=== PATIENT | female | born 1940 | race Caucasian/White ===

== ENCOUNTER 2019-01-01 00:38 | Outpatient (CLI) | payer BC, SELFPAY ==
--- NOTE | 2019-01-01 10:40 | MERGE_ITS ---
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 Summary: 1. Left ventricle: The cavity size was normal. Wall thickness was increased in a pattern of mild LVH. There was moderate focal basal hypertrophy of the septum. Systolic function was normal. The estimated ejection fraction was 60-65%. Wall motion was normal; there were no regional wall motion abnormalities. Stroke volume/bsa (LVOT, Doppler): 32ml/m^2. 2. Aortic valve: Transvalvular velocity was increased less than expected, due to low cardiac output. There was severe stenosis. There was mild regurgitation. Mean gradient (S): 26.5mm Hg. Valve area (VTI): 0.8cm^2. Indexed valve area (VTI): 0.4cm^2/m^2. 3. Mitral valve: Severely calcified annulus. Mildly thickened leaflets. 4. Right ventricle: The cavity size was normal. Wall thickness was normal. Systolic function was normal. 5. Pulmonary arteries: Pulmonary systolic pressure was increased, in the range of 35mm Hg to 40mm Hg. Recommendations: The patient should be referred to a cardiolgist for consultation. *PATIENT PRESENTATION* Height: 157.5cm ((62in) ) S/D Pressure: 131 / 70 Weight: 81.6kg ((179.6lb) ) BSA: 1.92m^2 Test start time: 10:45 AM. Test stop time: 11:45 AM. PERFORMING Unknown ORDERING Reshma Baig REFERRING Reshma Baig PERFORMING [facility] FOUNDATION ASSISTANT RT Yanni Piña)(CT), [facility] *PROCEDURE DATA* Procedure information: The patient was identified by two identifiers. This study was interpreted by [facility]. Pertinent images and digital data are archived for permanent storage and are available for subsequent review. Comparison was made to the study of 08/24/2017. Study status: Routine. Transthoracic echocardiography. M-mode, complete 2D, complete spectral Doppler, and color Doppler. A Transthoracic Echocardiogram was performed. Scanning was performed from the parasternal, apical, subcostal, and suprasternal notch acoustic windows. Images were obtained using an [id number] cardiac ultrasound machine. Image quality was adequate. Study completion: The patient tolerated the procedure well. There were no complications. History: PMH: Aortic stenosis. I35.0 *CARDIAC ANATOMY* Left ventricle: The cavity size was normal. Wall thickness was increased in a pattern of mild LVH. There was moderate focal basal hypertrophy of the septum. Systolic function was normal. The estimated ejection fraction was 60-65%. Wall motion was normal; there were no regional wall motion abnormalities. Aortic valve: Trileaflet; severely calcified leaflets. Valve mobility was restricted. Doppler: Transvalvular velocity was increased less than expected, due to low cardiac output. There was severe stenosis. There was mild regurgitation. VTI ratio of LVOT to aortic valve: 0.27. Valve area (VTI): 0.8cm^2. Indexed valve area (VTI): 0.4cm^2/m^2. Peak velocity ratio of LVOT to aortic valve: 0.3. Valve area (Vmax): 0.9cm^2. Indexed valve area (Vmax): 0.5cm^2/m^2. Mean velocity ratio of LVOT to aortic valve: 0.3. Valve area (Vmean): 0.9cm^2. Indexed valve area (Vmean): 0.5cm^2/m^2. Mean gradient (S): 26.5mm Hg. Peak gradient (S): 43.1mm Hg. Aorta: Aortic root: The aortic root was normal in size. Ascending aorta: The ascending aorta was normal in size. Mitral valve: Severely calcified annulus. Mildly thickened leaflets. Mobility was not restricted. Doppler: Transvalvular velocity was within the normal range. There was no evidence for stenosis. There was no significant regurgitation. Valve area by pressure half-time: 3.2cm^2. Indexed valve area by pressure half-time: 1.7cm^2/m^2. Peak gradient (D): 7.6mm Hg. Left atrium: The atrium was normal in size. Right ventricle: The cavity size was normal. Wall thickness was normal. Systolic function was normal. Pulmonic valve: Doppler: Transvalvular velocity was within the normal range. There was no evidence for stenosis. There was no significant regurgitation. Peak gradient (S): 4mm Hg. Tricuspid valve: Structurally normal valve. Doppler: Transvalvular velocity was within the normal range. There was no evidence for stenosis. There was mild regurgitation. Pulmonary artery: Pulmonary systolic pressure was increased, in the range of 35mm Hg to 40mm Hg. Right atrium: The atrium was normal in size. Pericardium: There was no pericardial effusion. Systemic veins: Inferior vena cava: Well visualized. The vessel was patent and normal in size. The respirophasic diameter changes were in the normal range (greater than or equal to 50%). Measurements Left ventricle Value 08/24/2017 Reference LV ID, ED, PLAX 4.4 cm 4.6 3.5 - 6.0 LV ID, ES, PLAX 2.8 cm 2.9 2.1 - 4.0 LV PW thickness, ED, PLAX 1.1 cm 1.1 LV end-diastolic volume, 52 ml 50 1-p A2C LV ejection fraction, 1-p 65 % 62 A2C LV end-diastolic volume, 60 ml 66 1-p A4C LV ejection fraction, 1-p 64 % 66 A4C LV e', lateral 0.049 m/sec LV E/e', lateral 28 LV e', medial 0.049 m/sec LV E/e', medial 28 LV e', average 0.049 m/sec LV E/e', average 28 Ventricular septum Value 08/24/2017 Reference IVS thickness, ED, PLAX 1.1 cm 1.0 LVOT Value 08/24/2017 Reference LVOT ID, A-P 2.0 cm 2.0 LVOT area 3 cm^2 3.1 LVOT peak velocity, S 1 m/sec 1.09 LVOT mean velocity, S 0.74 m/sec LVOT VTI, S 20.5 cm 26.3 LVOT peak gradient, S 4 mm Hg LVOT mean gradient, S 2.4 mm Hg 2.7 Stroke volume (SV), LVOT 62 ml DP Stroke index (SV/bsa), 32 ml/m^2 LVOT DP Aortic valve Value 08/24/2017 Reference Aortic valve peak 3.3 m/sec 3.2 velocity, S Aortic valve mean 2.46 m/sec 0.02 velocity, S Aortic valve VTI, S 75.0 cm Aortic mean gradient, S 26.5 mm Hg 22 Aortic peak gradient, S 43.1 mm Hg 40 VTI ratio, LVOT/AV 0.27 0.37 Aortic valve area, VTI 0.8 cm^2 1.2 Velocity ratio, peak, 0.3 0.34 LVOT/AV Aortic valve area, peak 0.9 cm^2 1 velocity Velocity ratio, mean, 0.3 LVOT/AV Aortic valve area, mean 0.9 cm^2 velocity Aortic valve area/bsa, 0.5 cm^2/m^2 mean velocity Aorta Value 08/24/2017 Reference Aortic root ID, ED 2.8 cm 2.8 Left atrium Value 08/24/2017 Reference LA ID, A-P, ES 4.2 cm LA ID/bsa, A-P 2.2 cm/m^2 <=2.2 LA area, ES, A4C 21.7 cm^2 8.8 - 23.4 LA area, ES, A2C 21 cm^2 21 LA volume/bsa, ES, 1-p A4C 41 ml/m^2 36 LA volume, ES, 2-p 69 ml LA volume/bsa, ES, 2-p 36 ml/m^2 LA/aortic root ratio 1.5 1.41 Mitral valve Value 08/24/2017 Reference Mitral E-wave peak 1.38 m/sec 1.26 velocity Mitral A-wave peak 1.83 m/sec 1.66 velocity Mitral deceleration time (H) 235 ms 341 150 - 230 Mitral pressure half-time 68 ms 99 Mitral peak gradient, D 7.6 mm Hg 6.4 Mitral E/A ratio, peak 0.75 0.76 Mitral valve area, PHT, DP 3.2 cm^2 2.2 Tricuspid valve Value 08/24/2017 Reference Tricuspid regurg peak 3 m/sec 2.8 velocity Tricuspid peak RV-RA 36.5 mm Hg 31.8 gradient Right atrium Value 08/24/2017 Reference RA area, ES, A4C 12.4 cm^2 8.3 - 19.5 Pulmonic valve Value 08/24/2017 Reference Pulmonic peak gradient, S 4 mm Hg Legend: (L) and (H) stephany values outside specified reference range. I have personally reviewed the images and have reviewed and edited the reported findings. Electronically signed by Jay Jay Lamb 01/01/2019 13:05
== END 2019-01-01 00:58 ==
PROVIDERS: PCP Family Medicine; Visit Provider Family Medicine
DX: I35.0 Nonrheumatic aortic (valve) stenosis (principal); I10 Essential (primary) hypertension; I51.7 Cardiomegaly
CPT/HCPCS: 93306

== ENCOUNTER 2019-03-31 10:50 | Emergency (ER) | payer BC, SELFPAY ==
[2019-03-31 10:57] VITALS: BP 162/75; PULSE 99; RESP 18; TEMP 36.6; O2SAT 98
--- NOTE | 2019-03-31 11:05 | ED.GENADUL_ITS ---
Discharge Plan Disposition Patient Disposition: HOME Condition: Good Discharge Details Chief Complaint: Orthopedic Clinical Impression: Fracture of distal end of fibula Primary Care Provider: Reshma Baig ED Provider: Kyrie Tam Home Meds and New Rx's Prescriptions: No Action Lantus U-100 Insulin 100 UNITS/ML solution 56 unit Sub-Q HS RF: 0 Humalog U-100 Insulin 100 UNIT/ML cartridge 15 unit Sub-Q TID RF: 0 vitamin B complex [B Complex-Vitamin B12] 1 EACH tablet 1 ea PO DAILY RF: 0 cholecalciferol (vitamin D3) [Vitamin D3] 1,000 UNIT capsule 1,000 unit PO DAILY RF: 0 Victoza 3-Colten 0.6 MG/0.1 ML pen injector 0.6 mg SQ DAILY RF: 0 losartan 100 MG tablet 100 mg PO HS RF: 0 Discharge Instructions Instructions: Leg Fracture (ED) Additional Instructions: Please try to reduce the amount of weight and pressure that you put on your left foot. Use a walking boot and your walker at all times. Please follow-up with orthopedics. He will be contacted for an appointment time. If you notice any worsening of your symptoms, or any new symptoms such as change in color for your toes, tingling in your toes, worsening pain, vomiting, diarrhea, fever, chills, shortness of breath, chest pain, numbness, weakness, or fainting , please return immediately to the emergency department for reevaluation. Please follow up with your primary care provider as soon as possible for reassessment and reevaluation. As always, it was a pleasure participating in your medical care today. Referrals: Reshma Baig [Primary Care Provider] - Medical Decision Making This is a 78-year-old female with a past medical history of paroxysmal atrial fibrillation, aortic stenosis, diabetes who presents today for evaluation of left ankle pain. She was walking and unfortunately stepped in pothole, inverting her ankle. She has notable swelling on the lateral aspect. This occurred roughly 20 minutes prior to arrival. She is able to ambulate but does have some pain with ambulation. She denies any numbness or tingling. Neurovascular exam is benign. No other evidence of trauma. No pain or tenderness over the knee femur hips or pelvis. Differential is highest for ligamentous sprain versus fracture, strength appears to be intact. We will get an x-ray to rule out fracture. Give NSAIDs and ice here. 12:37 PM X-ray results have returned, and per radiology there is evidence of a fracture of the distal fibula. No other acute fracture per radiology. Ankle mortise is intact. No pain in the near proximal tib-fib. The case was discussed with Dr. Hearn. He did review the x-rays. He feels that the patient can appropriately be placed in a walking boot, with outpatient orthopedic follow-up. We did do a trial of crutches and the patient did not tolerate this. She does have a walker at home. We initially did put a posterior splint on, however with Dr. Hearn's recommendation we will transition to a walking boot. After placement of the posterior splint she demonstrated normal neurovascular exam, no increase in pain, no decrease in sensation. No other abnormalities. We will refer for orthopedic follow-up. I have extensively reviewed the treatment plan and discharge instructions with the patient and their family. I have addressed all patient concerns at this time. The patient and family was made aware of what symptoms to monitor for that would warrant a return to the emergency department. Discussed the plan with the patient and family, they demonstrate verbal understanding and agreement with our assessment and plan at this time. HPI General Date/Time Provider Initiated Documentation: 03/31/19 10:56 . HPI Narrative: This is a very pleasant 78-year-old female with a past medical history of diabetes, aortic stenosis, hypertension, and paroxysmal atrial fibrillation for which she takes no anticoagulation. She presents today for evaluation of left ankle pain. Patient was walking earlier while carrying boxes, and stepped into a pothole, notably inverting her ankle and causing significant pain. This happened roughly 20 minutes prior to arrival. Pain is notably located on the lateral aspect of the ankle. No radiation of the pain to the roach knee femur or hip. No pain in the foot. No acute numbness or tingling. Patient denies hitting her head or any other trauma. She denies any other complication at this time. No other modifying factors. Pain is notably made worse with movement. Improved by nothing. She has not taken any NSAIDs yet. Related Data Home Medications Medication Instructions Recorded Confirmed insulin glargine [Lantus Vial] 56 unit SUB-Q HS 11/28/15 03/31/19 insulin lispro [Humalog] 15 unit SUB-Q TID 11/28/15 03/31/19 cholecalciferol (vitamin D3) 1,000 unit PO DAILY 01/30/18 03/31/19 [Vitamin D] liraglutide [Victoza 3-Colten] 0.6 mg SQ DAILY 01/30/18 03/31/19 losartan 100 mg PO HS 01/30/18 03/31/19 vitamin B complex [B 1 ea PO DAILY 01/30/18 03/31/19 Complex-Vitamin B12] Allergies Allergy/AdvReac Type Severity Reaction Status Date / Time codeine AdvReac Mild Unverified 03/31/19 11:03 diltiazem AdvReac Mild Unverified 03/31/19 11:03 epinephrine AdvReac Mild Unverified 03/31/19 11:03 lisinopril AdvReac Mild cough Unverified 03/31/19 11:03 pollen extracts AdvReac Unverified 03/31/19 11:03 General Stated Complaint: Orthopedic LACEY: 3 Review of Systems Review of Systems All systems reviewed & are unremarkable except as noted in HPI and below PFSH Social History Smoking/Tobacco Use Status: Never Alcohol Intake: never Drug use: Never Substance use type: does not use Do you feel safe at home: Yes Do you feel safe in your relationship?: Yes Exam Narrative Exam Narrative: 1.Const: Well-nourished, Well-developed, appearing stated age 2.Eyes: PERRL, no conjunctival injection, and symmetrical lids. 3.ENT: Atraumatic external nose and ears. Moist MM. Neck: Symmetric, trachea midline, No thyromegaly. 4.CVS: +S1/S2, No murmurs or gallops. Peripheral pulses 2+ and equal in all extremities. Brisk capillary refill in all extremities. 5.RESP: Unlabored respiratory effort. Clear to auscultation bilaterally. No wheezes rales or rhonchi 6.GI: Soft, Nontender/Nondistended, No hepatosplenomegaly. No guarding or rebound. 7.MSK: Normocephalic, Extremities w/o deformity. There is notable swelling on the lateral malleolus for the left ankle. All to moderate tenderness in this location. Pain is made worsened with inversion and eversion. As well as flexion and extension. Normal movement of the toes. Normal sensation, dorsalis pedis posterior tibial pulse +2 bilaterally, brisk capillary refill, no cyanosis or clubbing, Normal movement of all extremities otherwise. 8.Skin: Warm, Dry. No rashes or lesions. 9.Neuro: director volunteer services II-XII grossly intact. Sensation grossly intact, no focal neurologic deficits. 10.Psych: (AAO) x3. Appropriate mood and affect Course Vital Signs Temperature 36.6 C 03/31/19 10:57 Pulse 99 H 03/31/19 10:57 Respiratory Rate 18 03/31/19 10:57 Blood Pressure 162/75 H 03/31/19 10:57 Pulse Oximetry 98 03/31/19 10:57 Temperature 36.6 C 03/31/19 10:57 Temperature Source Skin 03/31/19 10:57 Pulse 99 H 03/31/19 10:57 Respiratory Rate 18 03/31/19 10:57 Respiratory Effort Non-Labored 03/31/19 10:57 Blood Pressure 162/75 H 03/31/19 10:57 Blood Pressure Position Supine 03/31/19 10:57 Pulse Oximetry 98 03/31/19 10:57 Oxygen Delivery Method Room Air 03/31/19 10:57 Oxygen Flow Rate 0 03/31/19 10:57
[2019-03-31] MEDS: Acetaminophen 500 MG TAB 1000 MG PO (11:06)
[2019-03-31] MEDS: Ibuprofen 800 MG TAB PO (11:06)
--- NOTE | 2019-03-31 11:27 | DI.RAD_ITS ---
SYMPTOMS/DIAGNOSIS: LATERAL LEFT ANKLE PAIN LEFT ANKLE: There is soft tissue swelling over the lateral malleolus. There is nondisplaced fracture of the tip of the fibula. No ankle mortise widening is seen. The distal tibia as well as talar dome appear intact. There is spurring at the calcaneus. IMPRESSION: Nondisplaced fracture at the tip of the distal fibula.
--- NOTE | 2019-03-31 11:40 | NUR.NOTE ---
Nursing Note: pt resting comfortably in wheelchair. ice applied to leg.
[2019-03-31 13:01] VITALS: PULSE 80; RESP 16
== END 2019-03-31 13:11 | disposition home or self-care (01) ==
PROVIDERS: Emergency Provider Student in an Organized Health Care Education/Training Program; PCP Family Medicine
DX: S82.492A Other fracture of shaft of left fibula, initial encounter for closed fracture (principal); W17.2XXA Fall into hole, initial encounter; X50.9XXA Other and unspecified overexertion or strenuous movements or postures, initial encounter; E11.9 Type 2 diabetes mellitus without complications; I10 Essential (primary) hypertension
CPT/HCPCS: 27786; 73610; E0114; L4361

== ENCOUNTER 2019-05-13 10:59 | Outpatient (CLI) | payer BC, MEDICARE, SELFPAY ==
--- NOTE | 2019-05-13 08:43 | DI.RAD_ITS ---
EXAM: XR ANKLE LT 2V INDICATION: F/U COMPARISON: XR ANKLE LT COMPLETE from 03/31/2019 TECHNIQUE: 2D digital imaging was performed. FINDINGS: There is mild soft tissue swelling about the left ankle. There has been no change in the alignment o f the fibular fracture when compared with the previous study of 03/31/2019 IMPRESSION:
== END 2019-05-13 11:19 ==
PROVIDERS: PCP Family Medicine; Visit Provider Orthopaedic Surgery
DX: S82.492D Other fracture of shaft of left fibula, subsequent encounter for closed fracture with routine healing (principal); M79.89 Other specified soft tissue disorders
CPT/HCPCS: 73600

== ENCOUNTER 2020-04-14 19:28 | Emergency (ER) | payer BC, MEDICARE, SELFPAY ==
[2020-04-14] VITALS (26 sets, daily range): BP systolic 136–232; BP diastolic 40–146; PULSE 60–94; RESP 13–23; TEMP 36.6–36.8; O2SAT 89–98
--- NOTE | 2020-04-14 19:30 | RT.EKG_ITS ---
APPROVED REPORT Exam: Resting ECG Patient Location: E HR:77 bpm ECG Measurements Heart Rate 77 AXIS WV 163 P 53 QRSd 130 QRS 39 QT 416 T 11 QTc 469 Conclusion EKG 19: 36 Rate 77, sinus rhythm, right bundle branch block slight nonspecific less than a millimeter depression in V4 and V5, no reciprocal elevations, no evidence of STEMI, no prior EKG for comparison.
--- NOTE | 2020-04-14 19:41 | ED.GENADUL_ITS ---
Discharge Plan Disposition Patient Disposition: HOME Condition: Fair Discharge Details Chief Complaint: Chest Pain Clinical Impression: Abdominal pain, ST segment changes on electrocardiogram, BP (high blood pressure), Hyperglycemia Primary Care Provider: Reshma Baig ED Provider: Soraya Salomon Home Meds and New Rx's Prescriptions: Continued Lantus U-100 Insulin 100 UNITS/ML solution 50 unit Sub-Q HS RF: 0 Humalog U-100 Insulin 100 UNIT/ML cartridge 15 unit Sub-Q TID RF: 0 ascorbic acid (vitamin C) [Vitamin C] 1,000 mg Tablet 1,000 mg PO DAILY RF: 0 cinnamon bark [Cinnamon] 500 mg Capsule 500 mg PO DAILY RF: 0 Multi For Her 18 mg iron-600 mcg-40 mcg Capsule 1 tab-cap PO DAILY RF: 0 vitamin B complex [B Complex-Vitamin B12] 1 EACH tablet 1 ea PO DAILY RF: 0 cholecalciferol (vitamin D3) [Vitamin D3] 1,000 UNIT capsule 1,000 unit PO DAILY RF: 0 losartan 100 MG tablet 100 mg PO HS RF: 0 Discharge Instructions Instructions: Abdominal Pain (ED) Additional Instructions: Your work-up today was concerning for EKG changes, is unclear if these are new or have been present previously. Your blood work does not indicate cardiac damage at this point, however this is just a snapshot time. If glucose was elevated, please treat accordingly. Please continue to monitor closely. You are declining admission today however, I would like you to return at any point with any new or worsening symptoms. If you develop fever/chills, chest pain or shortness of breath or other new/worsening symptoms please return immediately. You have been referred for cardiac stress testing. I would also like for you to follow-up closely with your primary care. Referrals: Reshma Baig [Primary Care Provider] - Discharge Data Discharge Date/Time-TO BE ENTERED AT DEPARTURE: 04/14/20 23:30 Medical Decision Making Patient is a pleasant 79-year-old female presents today with chief complaint of upper abdominal discomfort. She reports that this occurred on her way home from the dentist around 2 PM. She states that pain initially started in her back but is now localized under her breasts. Pain does not radiate. She is no longer endorsing any back pain. She denies any chest pain or shortness of breath. De nies any cough, shortness of breath or fevers. No recent travel. Patient has not had pain like this historically. On exam, patient is resting comfortably. She is noted to be hypertensive at 227/108. She reports that this is baseline when she gets nervous. However, this quickly came down to the 150s systolically. Lungs are clear, normal cardiac exam. No lower extremity edema or calf tenderness. 2+ distal pulses in all extremities. Abdomen is mildly tender in the epigastric region. No peritoneal findings are noted. Negative Orozco's exam. No CVA tenderness. Patient underwent echo just over 1 year ago. At that time, it was significant for severe aortic stenosis, mild regurgitation. Patient has severely calcified mitral valve annulus with mildly thickened leaflets. Right ventricle was normal. Pulmonary systolic pressures increased to 35. Left ventricle is normal size. Wall thickness increased indicating mild LVH. There was a moderate focal basal hypertrophy of the septum. Systolic function was normal. Estimated EF 60 to 65%. Wall motion was normal wall motion abnormalities. Patient had been recommended follow-up with cardiology but states that she has failed to do so. She will does report that she was also ordered to have an outpatient stress test which she did not have completed. EKG was reviewed by Dr. Tam. Patient has a right bundle branch block with nonspecific ST depression in V4 and V5 with no reciprocal changes. No previous ECG for comparison. reEvaluated the patient. She reports complete resolution of her symptoms. This is while she was obtaining her medications. She has indicating more of her abdomen is her area of discomfort reports she has not been able to pass any flatus today. She states she has been feeling bloated. States that she had to change her pants secondary to the bloating in her abdomen. Past surgical history is pertinent for hysterectomy. Question of the patient may have no large quantity of gas versus obstruction and will obtain x-ray to evaluate for bowel gas pattern consistent with obstruction. She denies any change in her discomfort associated with p.o. intake. Imaging was reviewed by radiologist: FINDINGS: Lungs: Unremarkable. No consolidation. Pleural space: Unremarkable. No pleural effusion. No pneumothorax. Heart/Mediastinum: Unremarkable. No cardiomegaly. Diaphragm: Eventrations of right hemidiaphragm. Bones/joints: Degenerative changes. IMPRESSION: No acute findings. FINDINGS: Gastrointestinal tract: Normal. No bowel dilation. Intraperitoneal space: Normal. No free air. Bones/joints: Convex left scoliosis of thoracolumbar spine. Degenerative changes. IMPRESSION: No acute findings. Patient has a heart score of 5. Patient I discussed inpatient admission. Her repeat troponin remains less than 0.05 and she does not have any changes on her EKG. However, patient did have baseline changes initially and on her repeat EKG as outlined above. I did discuss this with the patient. She denies discussed inpatient versus outpatient management. She feels that she will not feel to sleep in the hospital, she does decline inpatient admission despite my recommendations. She would prefer close follow-up with primary care as well as outpatient stress testing. Patient seems well aware of the risks, lives locally and is able to return with any new or worsening symptoms. All of her questions and concerns were addressed. Patient will return with any new or worsening symptoms. HPI General Mode of arrival: ambulatory . Date/Time Provider Initiated Documentation: 04/14/20 19:37 . Limitations to Documentation: no limitations . Information obtained by: patient and RN notes reviewed . History of Present Illness 79 year old F presents to the emergency department with the chief complaint of pain under breasts, described as moderate, with intensity rated at 4. Quality is described as aching, and is localized to the abdomen. Patient reports no radiation. Patient started experiencing this hour(s) (6) and it has been constant. No relieving factors improve symptom(s), No exacerbating factors reported . Patient notes nausea/vomiting (states she f eels nauseated but no vomiting); denies chest pain, cough, fever/chills, loss of appetite, rash, shortness of breath, syncope and weakness. Patient did receive the following treatments prior to arrival, none Related Data Home Medications Medication Instructions Recorded Confirmed Humalog U-100 Insulin 15 unit SUB-Q TID 11/28/15 04/18/20 Lantus U-100 Insulin 50 unit SUB-Q HS 11/28/15 04/18/20 cholecalciferol (vitamin D3) 1,000 unit PO DAILY 01/30/18 04/18/20 [Vitamin D3] losartan 100 mg PO HS 01/30/18 04/18/20 vitamin B complex [B 1 ea PO DAILY 01/30/18 04/18/20 Complex-Vitamin B12] Multi For Her 1 tab-cap PO DAILY 04/14/20 04/18/20 ascorbic acid (vitamin C) [Vitamin 1,000 mg PO DAILY 04/14/20 04/18/20 C] cinnamon bark [Cinnamon] 500 mg PO DAILY 04/14/20 04/18/20 Allergies Allergy/AdvReac Type Severity Reaction Status Date / Time codeine AdvReac Mild Verified 04/18/20 10:03 diltiazem AdvReac Mild Verified 04/18/20 10:03 epinephrine AdvReac Mild Verified 04/18/20 10:03 lisinopril AdvReac Mild cough Verified 04/18/20 10:03 pollen extracts AdvReac Verified 04/18/20 10:03 General LACEY: 3 Review of Systems Constitutional Constitutional: Reports as per HPI, Denies chills, Denies fever(s), Denies h eadache(s), Denies lethargy and Denies poor appetite Eyes Eyes: Denies change in vision ENT Ears, Nose, Mouth, and Throat: Denies dizziness and Denies headache(s) Cardiovascular Cardiovascular: Reports as per HPI, Denies dyspnea and Denies dyspnea on exertion Respiratory Respiratory: Reports as per HPI, Denies chest congestion, Denies cough, Denies pain on inspiration, Denies pain with cough, Denies dyspnea, Denies dyspnea on exertion and Denies wheezing Gastrointestinal Gastrointestinal: Reports as per HPI, Denies abdominal pain, Denies diarrhea, Denies nausea and Denies vomiting Musculoskeletal Musculoskeletal: Reports as per HPI and Denies back pain Integumentary/Breasts Skin/Breast: Reports as per HPI and Denies rash Neurologic Neurologic: Reports as per HPI, Denies dizziness and Denies headache(s) Allergic/Immunologic Allergic/Immunologic: Denies wheezing [facility] Medical History (Updated 04/18/20 @ 12:03 by Bethany Rosado MD) Aortic stenosis (Chronic) BP (high blood pressure) (Inactive) Closed fracture of left distal fibula (Inactive 03/31/19) Diabetes mellitus (Chronic) Surgical History (Updated 04/18/20 @ 12:03 by Bethany Rosado MD) History of cataract surgery (Chronic) History of hysterectomy (Chronic) Social History Smoking/Tobacco Use Status: Never Alcohol Intake: never Drug use: Never Substance use type: does not use Do you feel safe at home: Yes Do you feel safe in your relationship?: Yes Exam Const General: cooperative, healthy appearing, comfortable, no acute distress and well developed Nutritional Appearance: well nourished and overweight Orientation: alert, awake and oriented x3 [facility] Head: normal to inspection Ears: hearing grossly normal bilaterally Mouth: moist mucous membranes Chest Chest: normal inspection of the chest, normal palpation of entire chest wall and no crepitus Resp Effort & Inspection: normal respiratory effort, able to speak in complete sentences and no respiratory distress Auscultation: clear to auscultation bilaterally, no rales, no rhonchi and no wheezes Cardio Rate: regular rate Rhythm: regular rhythm Heart Sounds: S1 normal and S2 normal GI Inspection: normal to inspection, no edema and non-distended Palpation: soft, no hepatosplenomegaly, not firm, no guarding, not rigid and tender (no peritoneal findings) in the epigastrum Auscultation: normal bowel sounds Back/Spine/Pelvis Back: no CVA tenderness Thoracic/Lumbar Spine: thoracic and lumbar spine normal to inspection Skin General skin exam: no rashes or lesions noted Trauma: no lacerations or abrasions Neuro General: patient alert, patient awake and patient oriented x3 Cognition: normal cognition Speech: speech normal Gait: normal gait Extrem General: normal to inspection, capillary refill normal, no pedal edema, no calf tenderness and normal gait Psych Appearance: grossly normal and well kempt Mental Status: mental status grossly normal Speech and Movement: speech and movement normal
[2020-04-14 19:48] LABS: Abs Immature Grans 0.04 10^3/uL (0.0-0.06); Absolute Basophil Count 0.05 10^3/uL (0.0-0.2); Absolute Eosinophil Count 0.18 10^3/uL (0.0-0.7); Absolute Lymphocyte Count 2.33 10^3/uL (1.2-3.4); Absolute Monocyte Count 0.63 10^3/uL (0.1-0.8); Absolute Neutrophil Count 6.84 10^3/uL (1.2-6.7); Basophils % 0.5; Eosinophils % 1.8; HCT 40.5 % (36.0-46.0); Immature Grans % 0.4; Lymphocytes % 23.1; MCH 27.1 pg (27.0-33.0); MCHC 32.1 % (32.0-36.0); MCV 84.6 fL (80-95); MPV 10.8 fL (8.0-11.0); Monocytes % 6.3; Neutrophils % 67.9; Nucleated RBC 0 %; Platelet Count 251 10^3/uL (130-400); RBC 4.79 10^6/uL (3.93-5.22); RDW 14.3 % (11.7-14.6); RDW-SD 44.2 fL; WBC 10.07 10^3/uL (4.4-10.8)
[2020-04-14 20:04] LABS: ALT 49 U/L (14-59); AST 24 U/L (15-37); Albumin 3.9 g/dL (3.4-5.0); Alkaline Phosphatase 143 U/L (46-116); Anion Gap 11.2 mmol/L (3-11); BUN 13 mg/dL (7-18); Bilirubin, Total 0.9 mg/dL (0.2-1.0); CO2 25.8 mmol/L (21.0-32.0); CREATININE 0.98 mg/dL (0.55-1.02); Calcium 8.9 mg/dL (8.5-10.1); Chloride 100 mmol/L (98-107); Estimated GFR 54.75 (mL/min/1.73m2); Glucose 324 mg/dL (74-106); Magnesium 1.8 mg/dL (1.8-2.4); Potassium 3.8 mmol/L (3.5-5.1); Sodium 137 mmol/L (136-145); Total Protein 7.6 g/dL (6.4-8.2)
[2020-04-14 20:17] LABS: Troponin I < 0.05 ng/mL (<0.06)
[2020-04-14] MEDS: Ondansetron 4 MG/2 ML VIAL IVP (20:20)
[2020-04-14] MEDS: Aspirin 81 MG CHEW 324 MG CH (20:21)
[2020-04-14 21:09] LABS: Lipase 150 U/L (73-393)
--- NOTE | 2020-04-14 21:25 | DI.RAD_ITS ---
EXAM: XR CHEST 2V PA LATERAL CLINICAL HISTORY: pain under breasts TECHNIQUE: 2D digital imaging was performed. COMPARISON: CR CHEST 2 VIEWS PA,LAT from 11/28/2015 FINDINGS: MEDIASTINUM: Normal. HEART: Normal. PULMONARY VASCULATURE: Normal. LUNGS: Underlying fibrotic changes, otherwise clear. PLEURAL SPACE: No pleural effusion or pneumothorax. BONE:Degenerative changes in the spine. OTHER FINDINGS:No free air beneath the diaphragm. IMPRESSION: No acute pulmonary findings. DATA REPOSITORY: RADIATION DOSE DELIVERED:
--- NOTE | 2020-04-14 21:25 | DI.RAD_ITS ---
EXAM: 2D digital imaging was performed. CLINICAL HISTORY: bloated, unable to pass flatus. COMPARISON: No exams were available for comparison TECHNIQUE: Supine views of the abdomen performed. FINDINGS: BOWEL GAS PATTERN: Nondistended. CALCIFICATIONS: No radiopaque calcifications. OSSEOUS STRUCTURES: degenerative changes in the spine and hips. No evidence of organomegaly. IMPRESSION: 1. Nonobstructive bowel gas pattern. 2. No radiopaque calculi. DATA REPOSITORY: RADIATION DOSE DELIVERED:
--- NOTE | 2020-04-14 21:33 | DI.VRAD_ITS ---
PROCEDURE INFORMATION: Exam: XR Chest, 2 Views Exam date and time: 04/14/2020 9:25 PM Age: 79 years old Clinical indication: Chest pain; Other: Under breasts TECHNIQUE: Imaging protocol: XR of the chest Views: 2 views. COMPARISON: CR CHEST 2 VIEWS PA,LAT 11/28/2015 10:36 AM FINDINGS: Lungs: Unremarkable. No consolidation. Pleural space: Unremarkable. No pleural effusion. No pneumothorax. Heart/Mediastinum: Unremarkable. No cardiomegaly. Diaphragm: Eventrations of right hemidiaphragm. Bones/joints: Degenerative changes. IMPRESSION: No acute findings. Dictated and Authenticated by: Ryan Alejandra MD. Ordering:KATERYNA Lira MD
--- NOTE | 2020-04-14 21:35 | DI.VRAD_ITS ---
PROCEDURE INFORMATION: Exam: XR Abdomen, 2 Views Exam date and time: 04/14/2020 9:16 PM Age: 79 years old Clinical indication: Abdominal pain; Generalized; Patient HX: Chest and abdomen series, pain under breasts and upper abdomen since this afternoon TECHNIQUE: Imaging protocol: XR of the abdomen. Views: 2 Views. COMPARISON: No relevant prior studies available. FINDINGS: Gastrointestinal tract: Normal. No bowel dilation. Intraperitoneal space: Normal. No free air. Bones/joints: Convex left scoliosis of thoracolumbar spine. Degenerative changes. IMPRESSION: No acute findings. Dictated and Authenticated by: Ryan Alejandra MD. Ordering:KATERYNA Lira MD
--- NOTE | 2020-04-14 21:35 | NUR.NOTE ---
Pt farzad Granados [phone]. Waiting in car.
--- NOTE | 2020-04-14 22:45 | RT.EKG_ITS ---
APPROVED REPORT Exam: Resting ECG Patient Location: E HR:73 bpm ECG Measurements Heart Rate 73 AXIS MD 173 P 55 QRSd 128 QRS 27 QT 415 T 4 QTc 457 Conclusion Rate 73, sinus rhythm, right bundle branch block slight nonspecific less than a millimeter depression in V4 and V5, no reciprocal elevations, no evidence of STEMI, no prior EKG for comparison.
--- NOTE | 2020-04-14 23:05 | NUR.NOTE ---
pt ambulated to the bathroom. she stated that she felt much better anticipates discharge Nursing Note:
[2020-04-14 23:11] LABS: Troponin I < 0.05 ng/mL (<0.06)
== END 2020-04-14 23:30 | disposition home or self-care (01) ==
PROVIDERS: Emergency Provider Physician Assistant; PCP Family Medicine
DX: R10.13 Epigastric pain (principal); R94.31 Abnormal electrocardiogram [ECG] [EKG]; E11.65 Type 2 diabetes mellitus with hyperglycemia; Z79.4 Long term (current) use of insulin; I10 Essential (primary) hypertension
CPT/HCPCS: 80053; 83690; 93005; 96374; 96375; 99284; 71046; 74019; 83735; 84484; 85025; 93010; J2405

== ENCOUNTER 2020-04-18 07:24 | Inpatient (IN) | payer BC, MEDICARE, SELFPAY ==
[2020-04-18] VITALS (43 sets, daily range): BP systolic 107–217; BP diastolic 54–179; PULSE 100–124; RESP 17–36; TEMP 36.3–38.1; O2SAT 89–96
--- NOTE | 2020-04-18 07:30 | RT.EKG_ITS ---
APPROVED REPORT Exam: Resting ECG Patient Location: E HR:106 bpm ECG Measurements Heart Rate 106 AXIS MN 153 P 42 QRSd 117 QRS 31 QT 365 T -14 QTc 484 Conclusion EKG 7: 36 Rate 106, sinus tachycardia, QTC 484, QRS 117, right bundle branch block, no significant ST elevation or depression aside for in lead III which is less than a millimeter. No evidence of STEMI. [facility] ed from prior EKG 5 days ago
--- NOTE | 2020-04-18 07:30 | DI.CT_ITS ---
EXAM: CT ABDOMEN PELVIS WO CLINICAL HISTORY: RUQ pain, nausea, eval GB TECHNIQUE: COMPARISON: No exams were available for comparison FINDINGS: CT examination of the abdomen and pelvis was performed without contrast administration. There is a s mall right pleural effusion. There are small areas of atelectasis and/or scarring in the lung bases. The liver is unremarkable in appearance. Spleen contains a poorly visualized hypodensity, ultrasound correlation suggested to evaluate whether this represents a cyst. There is marked gallbladder wall thickening and pericholecystic fluid collection, there are multiple gallstones. No gross biliary dil atation seen. There is a presumed duodenal diverticulum. Pancreas appears atrophic but otherwise un remarkable Adrenals are unremarkable. Probable parapelvic cysts on the left, no gross hydronephrosis nephrolith iasis or ureterolithiasis. Small fat containing umbilical hernia noted. No other significant abdominal wall hernia. No signifi cant abdominal or pelvic adenopathy. No evidence of bowel obstruction. Appendix not specifically id entified. Abdominal aorta is of normal diameter. IMPRESSION: Findings suggesting acute cholecystitis. Please correlate clinically. Small splenic hypodensity, ultrasound correlation recommended. RADIATION DOSE DELIVERED: 1,126.78mGy.cm Total DLP
--- NOTE | 2020-04-18 07:35 | ED.GENADUL_ITS ---
Discharge Plan Disposition Patient Disposition: [facility] INPATIENT Condition: Serious Discharge Details Chief Complaint: GenMedical Clinical Impression: Acute cholecystitis Admit Date/Time: 04/18/20 09:26 Admit Provider: Bethany Rosado Attending Provider: Bethany Rosado Primary Care Provider: Reshma Baig ED Provider: Clarisse Keenan Discharge Data Discharge Date/Time-TO BE ENTERED AT DEPARTURE: 04/18/20 10:38 Medical Decision Making 79-year-old female presents today for evaluation of right upper quadrant abdominal pain. Past medical history is positive for diabetes, hypertension, paroxysmal A. fib, and aortic stenosis. Patient was here 5 days ago where she had intermittent right upper quadrant pain versus chest pain. She described as pain underneath her right breast. While she was here her pain completely resolved. She did have some atypical ST segment changes on her EKG, she is recommended that she stay overnight but she elected to go home instead. Patient states that since then the pain has continued and notably worsened , she describes it as sharp and achy. Worsened with palpation and movement. She has pain when she breathes secondary to the pain in the right upper quadrant over about the abdomen. She denies any history of cardiac disease. Only surgical history is positive for hysterectomy. She has no other complaints at this time. Physical exam demonstrates notable right upper quadrant pain on palpation. She has mild guarding. Signs and symptoms notably concerning for acute cholecystitis versus prolonged biliary colic. We will get a CT scan, treat the patient's pain, rehydrate manage. Patient will be signed out to my colleague Suyapa, for follow-up on labs, imaging, and continued management. EKG 7: 36 Rate 106, sinus tachycardia, QTC 484, QRS 117, right bundle branch block, no significant ST elevation or depression aside for in lead III which is less than a millimeter. No evidence of STEMI. Unchanged from prior EKG 5 days ago HPI General Date/Time Provider Initiated Documentation: 04/18/20 07:25 . HPI Narrative: 79-year-old female presents today for evaluation of right upper quadrant abdominal pain. Past medical history is positive for diabetes, hypertension, paroxysmal A. fib, and aortic stenosis. Patient was here 5 days ago where she had intermittent right upper quadrant pain versus chest pain. She described as pain underneath her right breast. While she was here her pain completely resolved. She did have some atypical ST segment changes on her EKG, she is recommended that she stay overnight but she elected to go home instead. Patient states that since then the pain has continued and notably worsened , she describes it as sharp and achy. Worsened with palpation and movement. She has pain when she breathes secondary to the pain in the right upper quadrant over about the abdomen. She denies any history of cardiac disease. Only surgical history is positive for hysterectomy. She has no other complaints at this time. Related Data Home Medications Medication Instructions Recorded Confirmed Humalog U-100 Insulin 15 unit SUB-Q TID 11/28/15 04/18/20 Lantus U-100 Insulin 50 unit SUB-Q HS 11/28/15 04/18/20 cholecalciferol (vitamin D3) 1,000 unit PO DAILY 01/30/18 04/18/20 [Vitamin D3] losartan 100 mg PO HS 01/30/18 04/18/20 vitamin B complex [B 1 ea PO DAILY 01/30/18 04/18/20 Complex-Vitamin B12] Multi For Her 1 tab-cap PO DAILY 04/14/20 04/18/20 ascorbic acid (vitamin C) [Vitamin 1,000 mg PO DAILY 04/14/20 04/18/20 C] cinnamon bark [Cinnamon] 500 mg PO DAILY 04/14/20 04/18/20 Allergies Allergy/AdvReac Type Severity Reaction Status Date / Time codeine AdvReac Mild Verified 04/18/20 10:03 diltiazem AdvReac Mild Verified 04/18/20 10:03 epinephrine AdvReac Mild Verified 04/18/20 10:03 lisinopril AdvReac Mild cough Verified 04/18/20 10:03 pollen extracts AdvReac Verified 04/18/20 10:03 General Stated Complaint: GenMedical LACEY: 2 Review of Systems All systems reviewed & are unremarkable except as noted in HPI and below PFSH Medical History (Updated 04/18/20 @ 12:03 by Bethany Rosado MD) Aortic stenosis (Chronic) BP (high blood pressure) (Inactive) Closed fracture of left distal fibula (Inactive 03/31/19) Diabetes mellitus (Chronic) Surgical History (Updated 04/18/20 @ 12:03 by Bethany Rosado MD) History of cataract surgery (Chronic) History of hysterectomy (Chronic) Social History Smoking/Tobacco Use Status: Never Alcohol Intake: never Drug use: Never Substance use type: does not use Do you feel safe at home: Yes Do you feel safe in your relationship?: Yes Exam Narrative Exam Narrative: 1.Const: Well-nourished, Well-developed, appearing stated age 2.Eyes: PERRL, no conjunctival injection, and symmetrical lids. 3.ENT: Atraumatic external nose and ears. Moist MM. Neck: Symmetric, trachea midline, No thyromegaly. 4.CVS: +S1/S2, No murmurs or gallops. Peripheral pulses 2+ and equal in all extremities. Brisk capillary refill in all extremities. 5.RESP: Unlabored respiratory effort. Clear to auscultation bilaterally. No wheezes rales or rhonchi 6.GI: Slight distention, notable tenderness, mild guarding in the right upper quadrant. Positive Orozco sign. No pain at McBurney's point. 7.MSK: Normocephalic/Atraumatic, Extremities w/o deformity or ttp No cyanosis or clubbing, Normal movement of all extremities 8.Skin: Warm, Dry. No rashes or lesions. 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 Sensation grossly intact, no focal neurologic deficits. 10.Psych: (AAO) x3. Appropriate mood and affect Course Vital Signs Vital signs: Pain Level 10 04/18/20 07:30
[2020-04-18 07:54] LABS: Abs Immature Grans 0.08 10^3/uL (0.0-0.06); Absolute Eosinophil Count 0.02 10^3/uL (0.0-0.7); Absolute Lymphocyte Count 1.17 10^3/uL (1.2-3.4); Absolute Monocyte Count 1.15 10^3/uL (0.1-0.8); Absolute Neutrophil Count 12.71 10^3/uL (1.2-6.7); Basophils % 0.3; Eosinophils % 0.1; HCT 38.7 % (36.0-46.0); HGB 12.7 g/dL (11.2-15.7); Immature Grans % 0.5; Lymphocytes % 7.7; MCH 27.3 pg (27.0-33.0); MCHC 32.8 % (32.0-36.0); MPV 10.6 fL (8.0-11.0); Monocytes % 7.6; Neutrophils % 83.8; Nucleated RBC 0 %; Platelet Count 293 10^3/uL (130-400); RBC 4.66 10^6/uL (3.93-5.22); RDW 14.6 % (11.7-14.6); RDW-SD 43.8 fL; WBC 15.17 10^3/uL (4.4-10.8)
[2020-04-18] MEDS: Normal Saline 1,000 ML 150 ML IV (07:54)
[2020-04-18] MEDS: Ondansetron 4 MG/2 ML VIAL IVP (07:54)
[2020-04-18 07:56] LABS: Lactate 2.3 mmol/L (0.6-1.4)
[2020-04-18 08:01] LABS: Absolute Basophil Count 0.05 10^3/uL (0.0-0.2)
[2020-04-18 08:09] LABS: INR 1.1 (0.9-1.1); PTT Activated 24.2 sec (21.0-31.4); Prothrombin Time 10.9 sec (9.3-11.0)
[2020-04-18 08:10] LABS: Lipase 70 U/L (73-393)
[2020-04-18 08:18] LABS: ALT 33 U/L (14-59); AST 21 U/L (15-37); Albumin 3.3 g/dL (3.4-5.0); Alkaline Phosphatase 117 U/L (46-116); BUN 15 mg/dL (7-18); Bilirubin, Total 2.2 mg/dL (0.2-1.0); CREATININE 1.04 mg/dL (0.55-1.02); Calcium 9.1 mg/dL (8.5-10.1); Chloride 95 mmol/L (98-107); Estimated GFR 51.12 (mL/min/1.73m2); Glucose 279 mg/dL (74-106); Potassium 3.9 mmol/L (3.5-5.1); Sodium 132 mmol/L (136-145); Total Protein 7.6 g/dL (6.4-8.2)
--- NOTE | 2020-04-18 08:18 | W.ED.GENAD ---
Discharge Plan Disposition Patient Disposition: [facility] INPATIENT Condition: Serious Discharge Details Chief Complaint: GenMedical Clinical Impression: Acute cholecystitis Admit Date/Time: 04/18/20 09:26 Admit Provider: Bethany Rosado Attending Provider: Bethany Rosado Primary Care Provider: Reshma Baig ED Provider: Clarisse Keenan Discharge Data Discharge Date/Time-TO BE ENTERED AT DEPARTURE: 04/18/20 10:38 Medical Decision Making Accepted signout from Chris Tam MD please see his previous note for HPI and physical exam. Patient is a 79-year-old female with right upper quadrant abdominal pain. She does have history of diabetes, hypertension, A. fib and aortic stenosis. Patient was seen in the emergency department 5 days ago with right upper quadrant intermittent chest pain. Past surgical history is positive for hysterectomy. At this point patient has received 1 mg of Dilaudid, 4 mg morphine, and CMP at this point is pending and CT abdomen pelvis is pending. Suspect cholecystitis patient's lactate is elevated 2.3, white blood cell count is 15.17. Initial troponin is within normal limits less than 0.05, bilirubin is elevated at 2.2, sodium 132, BUN is 15 creatinine 1.04 GFR is 51.12 alk phos is 117 AST and ALT are within normal limits. Patient placed on 2 L oxygen nasal cannula, after Dilaudid O2 sat went down to 87%. Low 90s on 2 L nasal cannula increased with coaching to take deep breaths. 08 48: Patient returns from diagnostic imaging RN at bedside to get urine sample. 0906: Spoke with Dr. Saleh with [facility] regarding CT result, Acute cholecystitis, with other incidental findings including diverticulum noted to the duodenum, thickening of the colon. Will page surgery regarding acute cholecystitis. PROCEDURE INFORMATION: Exam: CT Abdomen And Pelvis Without Contrast Exam date and time: 04/18/2020 7:35 AM Age: 79 years old Clinical indication: Other: Ruq pain, nausea, eval gb CR XR ABDOMEN FLAT UPRIGHT 04/14/2020 9:15 PM FINDINGS: Lungs: Atelectasis and/or scarring of the visualized lung bases. Trace right pleural effusion. Heart: There is calcification of the mitral valve annulus. There is calcification of the aortic valve annulus. Mediastinal space: Small hiatal hernia. Liver: No focal abnormality of the liver. Mild focal perihepatic fluid about the anterior right hepatic lobe. Gallbladder and bile ducts: Distended gallbladder containing gallbladder stones. Gallbladder wall thickening. Pericholecystic fluid/fat stranding. Pancreas: Unremarkable. No ductal dilation. Spleen: 1 cm splenic hypodensity (series 2, image 24), not completely characterized. Adrenals: Unremarkable. No mass. Kidneys and ureters: Nonspecific bilateral perirenal fat stranding. Stomach and bowel: 1.4 cm duodenal diverticulum with air-fluid level and punctate hyperdensity (series 2, image 40). There is mild thickening of the stomach antrum. Mild diverticulosis is present in the distal colon. Air-fluid level within the cecum. Mild colonic wall thickening about the hepatic flexure which is felt likely reactive to the adjacent inflammatory process.. There is no evidence of intestinal obstruction. Appendix: No appendix is specifically identified. There is no evidence of fluid collections or inflammatory stranding in the right lower quadrant. Intraperitoneal space: Unremarkable. No free air. No significant fluid collection. Vasculature: The aorta demonstrates mild atherosclerotic calcification. Lymph nodes: Unremarkable. No enlarged lymph nodes. Bladder: Unremarkable as visualized. Reproductive: There has been a hysterectomy. Bones/joints: There is no evidence of acute fracture. Lumbar spondylosis. Degenerative disc disease most pronounced at L4-L5. Osteitis pubis. Other degenerative changes. No suspicious osseous lesion. Soft tissues: Small fat containing umbilical hernia. 2 cm ovoid soft tissue density about the right gluteal cleft, may represent sebaceous or epidermal inclusion cyst. IMPRESSION: 1. Findings as detailed above concerning for acute cholecystitis. 2. Likely a 1.4 cm duodenal diverticulum with air-fluid level and punctate hyperdensities. 3. Thickening of the stomach antrum. Recommend correlation. 4. Wall thickening of the colon about the impact flexure, felt likely reactive to adjacent inflammatory process. 5. 2 cm ovoid soft tissue density about the right gluteal cleft, may represent sebaceous or epidermal inclusion cyst. Recommend correlation. 6. 1 cm splenic hypodensity not completely characterized on current examination. For patients without or with history of cancer, recommend follow-up MR in 6-12 months. 7. Other additional findings as above. THIS REPORT CONTAINS FINDINGS THAT MAY BE CRITICAL TO PATIENT CARE. The findings were verbally communicated via telephone conference with NICHOLAS Thornton at 9:07 AM EDT on 04/18/2020. The findings were acknowledged and understood. Thank you for allowing us to participate in the care of your patient. Dictated and Authenticated by: Hong Hastings MD 04/18/2020 9:08 AM Eastern Time ([place] & [place]) [id number]: Spoke with Dr. Rosado regarding patient case in details she recommends Zosyn IV piggyback at this time. She agrees to accept patient and will write initial admit orders. Will discuss plan of care with patient. 1011: Patient continues to complain of 7 out of 10 abdominal pain, heart rate and blood pressure are elevated at this time. Hydromorphone 0.5 mg IV ordered and instructed RN to open normal saline liter approximately 7 to 800 cc left in hanging bag wide open. HPI General Date/Time Provider Initiated Documentation: 04/18/20 07:25. Related Data Home Medications Medication Instructions Recorded Confirmed Humalog U-100 Insulin 15 unit SUB-Q TID 11/28/15 04/18/20 Lantus U-100 Insulin 50 unit SUB-Q HS 11/28/15 04/18/20 cholecalciferol (vitamin D3) 1,000 unit PO DAILY 01/30/18 04/18/20 [Vitamin D3] losartan 100 mg PO HS 01/30/18 04/18/20 vitamin B complex [B 1 ea PO DAILY 01/30/18 04/18/20 Complex-Vitamin B12] Multi For Her 1 tab-cap PO DAILY 04/14/20 04/18/20 ascorbic acid (vitamin C) [Vitamin 1,000 mg PO DAILY 04/14/20 04/18/20 C] cinnamon bark [Cinnamon] 500 mg PO DAILY 04/14/20 04/18/20 Allergies Allergy/AdvReac Type Severity Reaction Status Date / Time codeine AdvReac Mild Verified 04/18/20 10:03 diltiazem AdvReac Mild Verified 04/18/20 10:03 epinephrine AdvReac Mild Verified 04/18/20 10:03 lisinopril AdvReac Mild cough Verified 04/18/20 10:03 pollen extracts AdvReac Verified 04/18/20 10:03 General Stated Complaint: GenMedical LACEY: 2 [facility] Medical History (Updated 04/18/20 @ 12:03 by Bethany Rosado MD) Aortic stenosis (Chronic) BP (high blood pressure) (Inactive) Closed fracture of left distal fibula (Inactive 03/31/19) Diabetes mellitus (Chronic) Surgical History (Updated 04/18/20 @ 12:03 by Bethany Rosado MD) History of cataract surgery (Chronic) History of hysterectomy (Chronic) Social History Smoking/Tobacco Use Status: Never Alcohol Intake: never Drug use: Never Substance use type: does not use Do you feel safe at home: Yes Do you feel safe in your relationship?: Yes Course Vital Signs Vital signs: Pain Level 04/18/20 07:56 Lab/Test Results Lab/Test Results: Laboratory Tests Range/Units 04/18/20 04/18/20 04/18/20 07:45 07:45 07:45 WBC (4.4-10.8) 10^3/uL 15.17 H RBC (3.93-5.22) 10^6/uL 4.66 Hgb (11.2-15.7) g/dL 12.7 Hct (36.0-46.0) % 38.7 MCV (80-95) fL 83.0 MCH (27.0-33.0) pg 27.3 MCHC (32.0-36.0) % 32.8 RDW (11.7-14.6) % 14.6 Plt Count (130-400) 10^3/uL 293 MPV (8.0-11.0) fL 10.6 Immature Gran % 0.5 Neutrophils % 83.8 Lymphocytes % 7.7 Monocytes % 7.6 Eosinophils % 0.1 Basophils % 0.3 Nucleated RBC % % 0 Absolute Neutrophils (1.2-6.7) 10^3/uL 12.71 H Absolute Lymphocytes (1.2-3.4) 10^3/uL 1.17 L Absolute Monocytes (0.1-0.8) 10^3/uL 1.15 H Absolute Eosinophils (0.0-0.7) 10^3/uL 0.02 Absolute Basophils (0.0-0.2) 10^3/uL 0.05 PT (9.3-11.0) sec INR (0.9-1.1) APTT (21.0-31.4) sec Lactate (0.6-1.4) mmol/L 2.3 H* Lipase (73-393) U/L 70 Range/Units 04/18/20 07:45 WBC (4.4-10.8) 10^3/uL RBC (3.93-5.22) 10^6/uL Hgb (11.2-15.7) g/dL Hct (36.0-46.0) % MCV (80-95) fL MCH (27.0-33.0) pg MCHC (32.0-36.0) % RDW (11.7-14.6) % Plt Count (130-400) 10^3/uL MPV (8.0-11.0) fL Immature Gran % Neutrophils % Lymphocytes % Monocytes % Eosinophils % Basophils % Nucleated RBC % % Absolute Neutrophils (1.2-6.7) 10^3/uL Absolute Lymphocytes (1.2-3.4) 10^3/uL Absolute Monocytes (0.1-0.8) 10^3/uL Absolute Eosinophils (0.0-0.7) 10^3/uL Absolute Basophils (0.0-0.2) 10^3/uL PT (9.3-11.0) sec 10.9 INR (0.9-1.1) 1.1 APTT (21.0-31.4) sec 24.2 Lactate (0.6-1.4) mmol/L Lipase (73-393) U/L
[2020-04-18 08:19] LABS: Troponin I < 0.05 ng/mL (<0.06)
[2020-04-18] MEDS: HYDROmorphone 2 MG/ML VIAL 1 MG IVP (08:20)
--- NOTE | 2020-04-18 09:08 | DI.[facility]_ITS ---
PROCEDURE INFORMATION: Exam: CT Abdomen And Pelvis Without Contrast Exam date and time: 04/18/2020 7:35 AM Age: 79 years old Clinical indication: Other: Ruq pain, nausea, eval gb TECHNIQUE: Imaging protocol: Computed tomography of the abdomen and pelvis without contrast. Radiation optimization: All CT scans at this facility use at least one of these dose optimization techniques: automated exposure control; mA and/or kV adjustment per patient size (includes targeted exams where dose is matched to clinical indication); or iterative reconstruction. COMPARISON: CR XR ABDOMEN FLAT UPRIGHT 04/14/2020 9:15 PM FINDINGS: Lungs: Atelectasis and/or scarring of the visualized lung bases. Trace right pleural effusion. Heart: There is calcification of the mitral valve annulus. There is calcification of the aortic valve annulus. Mediastinal space: Small hiatal hernia. Liver: No focal abnormality of the liver. Mild focal perihepatic fluid about the anterior right hepatic lobe. Gallbladder and bile ducts: Distended gallbladder containing gallbladder stones. Gallbladder wall thickening. Pericholecystic fluid/fat stranding. Pancreas: Unremarkable. No ductal dilation. Spleen: 1 cm splenic hypodensity (series 2, image 24), not completely characterized. Adrenals: Unremarkable. No mass. Kidneys and ureters: Nonspecific bilateral perirenal fat stranding. Stomach and bowel: 1.4 cm duodenal diverticulum with air-fluid level and punctate hyperdensity (series 2, image 40). There is mild thickening of the stomach antrum. Mild diverticulosis is present in the distal colon. Air-fluid level within the cecum. Mild colonic wall thickening about the hepatic flexure which is felt likely reactive to the adjacent inflammatory process.. There is no evidence of intestinal obstruction. Appendix: No appendix is specifically identified. There is no evidence of fluid collections or inflammatory stranding in the right lower quadrant. Intraperitoneal space: Unremarkable. No free air. No significant fluid collection. Vasculature: The aorta demonstrates mild atherosclerotic calcification. Lymph nodes: Unremarkable. No enlarged lymph nodes. Bladder: Unremarkable as visualized. Reproductive: There has been a hysterectomy. Bones/joints: There is no evidence of acute fracture. Lumbar spondylosis. Degenerative disc disease most pronounced at L4-L5. Osteitis pubis. Other degenerative changes. No suspicious osseous lesion. Soft tissues: Small fat containing umbilical hernia. 2 cm ovoid soft tissue density about the right gluteal cleft, may represent sebaceous or epidermal inclusion cyst. IMPRESSION: 1. Findings as detailed above concerning for acute cholecystitis. 2. Likely a 1.4 cm duodenal diverticulum with air-fluid level and punctate hyperdensities. 3. Thickening of the stomach antrum. Recommend correlation. 4. Wall thickening of the colon about the impact flexure, felt likely reactive to adjacent inflammatory process. 5. 2 cm ovoid soft tissue density about the right gluteal cleft, may represent sebaceous or epidermal inclusion cyst. Recommend correlation. 6. 1 cm splenic hypodensity not completely characterized on current examination. For patients without or with history of cancer, recommend follow-up MR in 6-12 months. 7. Other additional findings as above. THIS REPORT CONTAINS FINDINGS THAT MAY BE CRITICAL TO PATIENT CARE. The findings were verbally communicated via telephone conference with NICHOLAS Thornton at 9:07 AM EDT on 04/18/2020. The findings were acknowledged and understood. Dictated and Authenticated by: Hong Hastings MD. Ordering:SONIA Mittal MD
[2020-04-18 09:09] LABS: Bilirubin Small (Negative); Blood Negative (Negative); Clarity Sl Cloudy (Clear); Glucose 250 mg/dL (Negative); Ketones 40 mg/dL (Negative); Leukocyte Esterase Negative (Negative); Nitrite Negative (Negative); Specific Gravity >= 1.030 (1.005-1.025); Urobilinogen 0.2 EU/dL (Up TO 0.2)
[2020-04-18 09:17] LABS: Epithelial Cells Few HPF (Negative); RBC 0-2 HPF (0-2); WBC 0-2 HPF (0-5)
[2020-04-18 09:18] LABS: Bacteria Rare HPF (Negative); C & S Indicated? No; Casts 0-2 Coarse Granular LPF (Negative); Crystals Negative HPF (Negative); Mucus Moderate (Negative); Other Cells Rare Renal (Negative)
[2020-04-18] MEDS: PIPERACILLIN/TAZO 3.375 GM in Normal Saline 50 ML IVPB ×3 (09:45→21:56)
[2020-04-18] MEDS: HYDROmorphone 2 MG/ML VIAL 0.5 MG IVP (10:17)
[2020-04-18] MEDS: Lactated Ringers 1,000 ML 125 ML IV ×2 (11:03→20:37)
--- NOTE | 2020-04-18 11:58 | HPE_ITS ---
Date of service: 04/18/20 Time of Service: 11:58 Assessment and Plan Assessment and plan (1) Acute cholecystitis: Status: Acute Assessment and plan: The patient has been admitted for IVF, pain medicatio n and antibiotics. The patient denied ever having had an ECHO, but review of her chart shows an ECHO done at [facility] last year with severe found, aortic area 0.8 cm. She did not follow up with cardiology as advised. At this point, further cardiac evaluation is needed preop and she is not a candidate for surgery here with untreated severe valve disease. Will try to proceed with her stress test as scheduled tomorrow. Hopefully her cholecystitis can be cooled off with antibiotics to allow for e lective surgery after cardiology evaluation. History of Present Illness Narrative: This 79-year-old female presents to the emergency department this morning with a several day history of right upper quadrant and epigastric pain. This has been constant since Sunday. She came in Sunday with more of a chest pressure and had a cardiac evaluation in the emergency department which showed some subtle ST changes. The patient is scheduled for an outpatient stress test tomorrow. She has had some dry heaves. She notes no jaundice. She was last able to eat something on . CT scan of the abdomen and pelvis shows pericholecystic inflammatory change and gallstones. Review of Systems Narrative: Denies dizziness with standing. Chronic right leg pain. [facility] Medical History (Updated 04/18/20 @ 12:03 by Bethany Rosado MD) Aortic stenosis (Chronic) BP (high blood pressure) (Inactive) Closed fracture of left distal fibula (Inactive 03/31/19) Diabetes mellitus (Chronic) Surgical History (Updated 04/18/20 @ 12:03 by Bethany Rosado MD) History of cataract surgery (Chronic) History of hysterectomy (Chronic) Social History Smoking/Tobacco Use Status: Never Alcohol Intake: never Drug use: Never Substance use type: does not use Do you feel safe at home: Yes Do you feel safe in your relationship?: Yes Meds Home Medications and Allergies Home Medications Medication Instructions Recorded Confirmed Type Humalog U-100 Insulin 15 unit SUB-Q TID 11/28/15 04/18/20 History Lantus U-100 Insulin 50 unit SUB-Q HS 11/28/15 04/18/20 History cholecalciferol (vitamin D3) 1,000 unit PO DAILY 01/30/18 04/18/20 History [Vitamin D3] losartan 100 mg PO HS 01/30/18 04/18/20 History vitamin B complex [B 1 ea PO DAILY 01/30/18 04/18/20 History Complex-Vitamin B12] Multi For Her 1 tab-cap PO DAILY 04/14/20 04/18/20 History ascorbic acid (vitamin C) [Vitamin 1,000 mg PO DAILY 04/14/20 04/18/20 History C] cinnamon bark [Cinnamon] 500 mg PO DAILY 04/14/20 04/18/20 History Allergies Allergy/AdvReac Type Severity Reaction Status Date / Time codeine AdvReac Mild Verified 04/18/20 10:03 diltiazem AdvReac Mild Verified 04/18/20 10:03 epinephrine AdvReac Mild Verified 04/18/20 10:03 lisinopril AdvReac Mild cough Verified 04/18/20 10:03 pollen extracts AdvReac Verified 04/18/20 10:03 Exam Narrative Exam Narrative: Sleepy from narcotics Lungs CTA Heart RRR. Slightly tachy. Significant systolic murmur. Abdomen with epigastric and RUQ tenderness to palpation. Results Labs Result diagrams: 04/18/20 07:45 04/18/20 07:45 Labs: Laboratory Results - last 24 hr 04/18/20 04/18/20 04/18/20 07:45 07:45 07:45 WBC RBC Hgb Hct MCV MCH MCHC RDW Plt Count MPV Immature Gran % Neutrophils % Lymphocytes % Monocytes % Eosinophils % Basophils % Nucleated RBC % Absolute Neutrophils Absolute Lymphocytes Absolute Monocytes Absolute Eosinophils Absolute Basophils PT INR APTT Sodium 132 L Potassium 3.9 Chloride 95 L Carbon Dioxide 24.0 Anion Gap 13.0 H BUN 15 Creatinine 1.04 H Estimated GFR/1.73 m2 51.12 Glucose 279 H Lactate 2.3 H* Calcium 9.1 Total Bilirubin 2.2 H AST 21 ALT 33 Alkaline Phosphatase 117 H Troponin I < 0.05 Total Protein 7.6 Albumin 3.3 L Lipase 70 Urine Color Urine Clarity Urine pH Ur Specific [employer] Urine Protein Urine Ketones Urine Blood Urine Nitrite Urine Bilirubin Urine Urobilinogen Ur Leukocyte Esterase Urine RBC Urine WBC Ur Epithelial Cells Urine Crystals Urine Bacteria Urine Casts Urine Mucus Urine Other Ur Culture Indicated? Urine Glucose 04/18/20 04/18/20 04/18/20 07:45 07:45 08:57 WBC 15.17 H RBC 4.66 Hgb 12.7 Hct 38.7 MCV 83.0 MCH 27.3 MCHC 32.8 RDW 14.6 Plt Count 293 MPV 10.6 Immature Gran % 0.5 Neutrophils % 83.8 Lymphocytes % 7.7 Monocytes % 7.6 Eosinophils % 0.1 Basophils % 0.3 Nucleated RBC % 0 Absolute Neutrophils 12.71 H Absolute Lymphocytes 1.17 L Absolute Monocytes 1.15 H Absolute Eosinophils 0.02 Absolute Basophils 0.05 PT 10.9 INR 1.1 APTT 24.2 Sodium Potassium Chloride Carbon Dioxide Anion Gap BUN Creatinine Estimated GFR/1.73 m2 Glucose Lactate Calcium Total Bilirubin AST ALT Alkaline Phosphatase Troponin I Total Protein Albumin Lipase Urine Color Yellow Urine Clarity Sl cloudy Urine pH 6.0 Ur Specific [employer] >= 1.030 H Urine Protein 100 H Urine Ketones 40 H Urine Blood Negative Urine Nitrite Negative Urine Bilirubin Small H Urine Urobilinogen 0.2 Ur Leukocyte Esterase Negative Urine RBC 0-2 Urine WBC 0-2 Ur Epithelial Cells Few Urine Crystals Negative Urine Bacteria Rare Urine Casts 0-2 coarse granular Urine Mucus Moderate Urine Other Rare renal Ur Culture Indicated? No Urine Glucose 250 H Last Vital Signs Temp 97.3 F L 04/18/20 11:24 Pulse 112 H 04/18/20 11:24 Resp 18 04/18/20 11:24 BP 145/75 H 04/18/20 11:24 Pulse Ox 93 L 04/18/20 11:24 COVID-19 Screening Have you,or household,traveled outside [place] in last 14 days?: No Had IN PERSON contact w/suspected or confirmed C-19 person: No
[2020-04-18] MEDS: Insulin Aspart 300 UNITS/3 ML PEN SC ×2 (12:21→18:10)
[2020-04-18] MEDS: Acetaminophen 325 MG TAB 650 MG PO ×2 (15:52→23:54)
[2020-04-18 21:01] LABS: COVID-19 RT-PCR UVMMC Result Negative (Negative)
[2020-04-18] MEDS: Losartan 50 MG TAB 100 MG PO (22:01)
[2020-04-18] MEDS: Normal Saline Flush 10 ML SYR IVP (22:08)
[2020-04-19 00:11] VITALS: BP 118/63; PULSE 97; RESP 18; TEMP 39; O2SAT 93
[2020-04-19 02:30] VITALS: TEMP 36.2
[2020-04-19] MEDS: PIPERACILLIN/TAZO 3.375 GM in Normal Saline 50 ML IVPB ×2 (03:44→09:20)
[2020-04-19] MEDS: Normal Saline Flush 10 ML SYR IVP (03:50)
[2020-04-19 04:18] VITALS: BP 142/67; PULSE 91; RESP 20; TEMP 37; O2SAT 88
[2020-04-19 07:22] VITALS: BP 127/66; PULSE 96; RESP 18; TEMP 38.1; O2SAT 94
[2020-04-19 07:30] VITALS: O2SAT 94
[2020-04-19 08:11] LABS: Absolute Basophil Count 0.02 10^3/uL (0.0-0.2); Absolute Lymphocyte Count 1.13 10^3/uL (1.2-3.4); Absolute Monocyte Count 0.86 10^3/uL (0.1-0.8); Absolute Neutrophil Count 12.95 10^3/uL (1.2-6.7); Basophils % 0.1; Eosinophils % 0.1; HGB 10.5 g/dL (11.2-15.7); Immature Grans % 0.7; Lymphocytes % 7.5; MCH 27.3 pg (27.0-33.0); MCHC 31.8 % (32.0-36.0); MCV 85.7 fL (80-95); MPV 11.4 fL (8.0-11.0); Monocytes % 5.7; Neutrophils % 85.9; Nucleated RBC 0 %; Platelet Count 218 10^3/uL (130-400); RBC 3.85 10^6/uL (3.93-5.22); RDW 14.9 % (11.7-14.6); WBC 15.07 10^3/uL (4.4-10.8)
[2020-04-19 08:14] LABS: Absolute Eosinophil Count 0.02 10^3/uL (0.0-0.7)
[2020-04-19 08:25] LABS: ALT 34 U/L (14-59); AST 30 U/L (15-37); Albumin 2.4 g/dL (3.4-5.0); Alkaline Phosphatase 119 U/L (46-116); Anion Gap 8.3 mmol/L (3-11); BUN 26 mg/dL (7-18); Bilirubin, Total 2.4 mg/dL (0.2-1.0); CO2 26.7 mmol/L (21.0-32.0); CREATININE 1.55 mg/dL (0.55-1.02); Calcium 8.4 mg/dL (8.5-10.1); Chloride 99 mmol/L (98-107); Estimated GFR 32.25 (mL/min/1.73m2); Glucose 151 mg/dL (74-106); Lipase 46 U/L (73-393); Potassium 4.2 mmol/L (3.5-5.1); Sodium 134 mmol/L (136-145); Total Protein 6.5 g/dL (6.4-8.2)
--- NOTE | 2020-04-19 08:35 | PGE_ITS ---
Date of Service Date of service: 04/19/20 Time of Service: 08:35 Assessment and Plan Assessment and plan (1) Acute cholecystitis: Status: Acute Assessment and plan: Her symptoms and labs have not improved with antibiotics She does not feel well enough to have a stress test Her gallbladder will need some sort of intervention - either percutaneous drainage or surgery. With her untreated valve disease, her procedure cannot be done here. Will contact [facility] [facility] for transfer. Subjective Subjective Interval history since last seen: Patient does not feel any better today. Still has RUQ pain with any movement. Exam Narrative Exam Narrative: Flushed Abdomen tender RUQ Objective Objective Clinical Data: Abnormal lab results 04/18/20 04/19/20 04/19/20 Range/Units 08:57 07:35 07:35 WBC 15.07 H (4.4-10.8) 10^3/uL RBC 3.85 L (3.93-5.22) 10^6/uL Hgb 10.5 L D (11.2-15.7) g/dL Hct 33.0 L (36.0-46.0) % MCHC 31.8 L (32.0-36.0) % RDW 14.9 H (11.7-14.6) % MPV 11.4 H (8.0-11.0) fL Absolute Neutrophils 12.95 H (1.2-6.7) 10^3/uL Absolute Lymphocytes 1.13 L (1.2-3.4) 10^3/uL Absolute Monocytes 0.86 H (0.1-0.8) 10^3/uL Sodium 134 L (136-145) mmol/L BUN 26 H D (7-18) mg/dL Creatinine 1.55 H (0.55-1.02) mg/dL Glucose 151 H D (74-106) mg/dL Calcium 8.4 L (8.5-10.1) mg/dL Total Bilirubin 2.4 H (0.2-1.0) mg/dL Alkaline Phosphatase 119 H (46-116) U/L Albumin 2.4 L (3.4-5.0) g/dL Ur Specific Justice >= 1.030 H (1.005-1.025) Urine Protein 100 H (Negative) mg/dL Urine Ketones 40 H (Negative) mg/dL Urine Bilirubin Small H (Negative) Urine Glucose 250 H (Negative) mg/dL Vital Signs Temperature 100.6 F H 04/19/20 07:22 Temperature Source Tympanic 04/19/20 07:22 Pulse 96 H 04/19/20 07:22 Pulse Rhythm Regular 04/19/20 03:54 Pulse 113 H 04/18/20 10:32 Respiratory Rate 18 04/19/20 07:22 Respiratory Effort 04/19/20 03:54 Respiratory Depth Normal 04/19/20 03:54 Respiratory Pattern Normal 04/19/20 03:54 Blood Pressure 127/66 04/19/20 07:22 Blood Pressure Mean 104 04/18/20 10:31 Blood Pressure Position Supine 04/18/20 07:30 Pulse Oximetry 94 L 04/19/20 07:22 Oxygen Delivery Method Nasal Cannula 04/19/20 07:22 Oxygen Flow Rate 2 04/19/20 07:22 Pain Level 4 04/19/20 07:22 Comment 04/19/20 04:18 Intake & Output 04/18/20 04/18/20 04/19/20 11:59 23:59 11:59 Intake Total 1050.0 / 2150.0 1100 / 2150.0 1070 / 1070 Output Total 3 / 403 400 / 403 80 / 80 Balance 1047.0 / 1747.0 700 / 1747.0 990 / 990 Weight 193 lb 12.581 oz Intake: IV 1050.0 / 2150.0 1100 / 2150.0 1070 / 1070 Output: Urine 3 / 403 400 / 403 80 / 80 Other: Urine Color Light Lise Light Lise Urine Appearance Clear Clear Urine Odor None None Voiding Methods Toilet Toilet Laboratory Results WBC 15.07 10^3/uL (4.4-10.8) H 04/19/20 07:35 RBC 3.85 10^6/uL (3.93-5.22) L 04/19/20 07:35 Hgb 10.5 g/dL (11.2-15.7) L D 04/19/20 07:35 Hct 33.0 % (36.0-46.0) L 04/19/20 07:35 MCV 85.7 fL (80-95) 04/19/20 07:35 MCH 27.3 pg (27.0-33.0) 04/19/20 07:35 MCHC 31.8 % (32.0-36.0) L 04/19/20 07:35 RDW 14.9 % (11.7-14.6) H 04/19/20 07:35 Plt Count 218 10^3/uL (130-400) 04/19/20 07:35 MPV 11.4 fL (8.0-11.0) H 04/19/20 07:35 Immature Gran % 0.7 04/19/20 07:35 Neutrophils % 85.9 04/19/20 07:35 Lymphocytes % 7.5 04/19/20 07:35 Monocytes % 5.7 04/19/20 07:35 Eosinophils % 0.1 04/19/20 07:35 Basophils % 0.1 04/19/20 07:35 Nucleated RBC % 0 % 04/19/20 07:35 Absolute Neutrophils 12.95 10^3/uL (1.2-6.7) H 04/19/20 07:35 Absolute Lymphocytes 1.13 10^3/uL (1.2-3.4) L 04/19/20 07:35 Absolute Monocytes 0.86 10^3/uL (0.1-0.8) H 04/19/20 07:35 Absolute Eosinophils 0.02 10^3/uL (0.0-0.7) 04/19/20 07:35 Absolute Basophils 0.02 10^3/uL (0.0-0.2) 04/19/20 07:35 PT 10.9 sec (9.3-11.0) 04/18/20 07:45 INR 1.1 (0.9-1.1) 04/18/20 07:45 APTT 24.2 sec (21.0-31.4) 04/18/20 07:45 Sodium 134 mmol/L (136-145) L 04/19/20 07:35 Potassium 4.2 mmol/L (3.5-5.1) 04/19/20 07:35 Chloride 99 mmol/L (98-107) 04/19/20 07:35 Carbon Dioxide 26.7 mmol/L (21.0-32.0) 04/19/20 07:35 Anion Gap 8.3 mmol/L (3-11) 04/19/20 07:35 BUN 26 mg/dL (7-18) H D 04/19/20 07:35 Creatinine 1.55 mg/dL (0.55-1.02) H 04/19/20 07:35 Estimated GFR/1.73 m2 32.25 (mL/min/1.73m2) 04/19/20 07:35 Glucose 151 mg/dL (74-106) H D 04/19/20 07:35 Lactate 2.3 mmol/L (0.6-1.4) H* 04/18/20 07:45 Calcium 8.4 mg/dL (8.5-10.1) L 04/19/20 07:35 Total Bilirubin 2.4 mg/dL (0.2-1.0) H 04/19/20 07:35 AST 30 U/L (15-37) 04/19/20 07:35 ALT 34 U/L (14-59) 04/19/20 07:35 Alkaline Phosphatase 119 U/L (46-116) H 04/19/20 07:35 Troponin I < 0.05 ng/mL (<0.06) 04/18/20 07:45 Total Protein 6.5 g/dL (6.4-8.2) 04/19/20 07:35 Albumin 2.4 g/dL (3.4-5.0) L 04/19/20 07:35 Lipase 46 U/L (73-393) 04/19/20 07:35 Urine Color Yellow (Yellow) 04/18/20 08:57 Urine Clarity Sl cloudy (Clear) 04/18/20 08:57 Urine pH 6.0 (5-8) 04/18/20 08:57 Ur Specific [employer] >= 1.030 (1.005-1.025) H 04/18/20 08:57 Urine Protein 100 mg/dL (Negative) H 04/18/20 08:57 Urine Ketones 40 mg/dL (Negative) H 04/18/20 08:57 Urine Blood Negative (Negative) 04/18/20 08:57 Urine Nitrite Negative (Negative) 04/18/20 08:57 Urine Bilirubin Small (Negative) H 04/18/20 08:57 Urine Urobilinogen 0.2 EU/dL (Up TO 0.2) 08/23/20 08:57 Ur Leukocyte Esterase Negative (Negative) 04/18/20 08:57 Urine RBC 0-2 HPF (0-2) 04/18/20 08:57 Urine WBC 0-2 HPF (0-5) 04/18/20 08:57 Ur Epithelial Cells Few HPF (Negative) 04/18/20 08:57 Urine Crystals Negative HPF (Negative) 04/18/20 08:57 Urine Bacteria Rare HPF (Negative) 04/18/20 08:57 Urine Casts 0-2 coarse granular LPF (Negative) 04/18/20 08:57 Urine Mucus Moderate (Negative) 04/18/20 08:57 Urine Other Rare renal (Negative) 04/18/20 08:57 Ur Culture Indicated? No 04/18/20 08:57 Urine Glucose 250 mg/dL (Negative) H 04/18/20 08:57 COVID-19 PCR Negative (Negative) 04/18/20 09:22 Nasopharyn COVID-19 PCR Not Applicable 04/18/20 09:22 Ref Test Perform Site [facility] 04/18/20 09:22
--- NOTE | 2020-04-19 08:43 | INITIAL_ITS ---
- If Service Date Differs Date of service: 04/19/20 Time of Service: 08:43 Care Management Initial Assess REASON FOR HOSPITALIZATION:: Acute cholecystitis PAST MEDICAL HISTORY/PAST SURGICAL HISTORY:: Medical History (Updated 04/18/20 @ 12:03 by Bethany Rosado MD). Aortic stenosis (Chronic). BP (high blood pressure) (Inactive). Closed fracture of left distal fibula (Inactive 03/31/19). Diabetes mellitus (Chronic). Surgical History (Updated 04/18/20 @ 12:03 by Bethany Rosado MD). History of cataract surgery (Chronic). History of hysterectomy (Chronic) PREVIOUS FUNCTIONAL STATUS/SOCIAL/FAMILY SUPPORTS:: Melina lives alone in an apartment in a building she owns in [facility]. She describes herself as very independent. 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 Melina has 3 children. One son, Darwin, lives locally and is very supportive. CURRENT FUNCTIONAL STATUS:: Melina was sitting up in bed when CM met with her. She was pleasant and cooperative and engaged easily with CM. Britta shared that she enjoys going to the beach and walking on the rocks. She admitted she uses a quad cane while doing this but otherwise needs no assistive devices. She shared that one of her sons has a [place] in [place] and she visits often. ADVANCE DIRECTIVES:: none on file Has patient been provided with info about the portal/API?: Yes Did the patient sign up for the portal?: No CODE STATUS:: Full Code INSURANCE COVERAGE / FINANCIAL ISSUES:: Medicare. BC/BS CURRENT HOME/COMMUNITY SERVICES/EQUIPMENT:: uses a quad cane on occasion PRIMARY CARE PHYSICIAN:: Reshma Baig POTENTIAL DISCHARGE NEEDS:: Follow up with PCP and discharge plan of care PATIENT/FAMILY EDUCATION NEEDS:: Discharge plan, limitations, follow up plan, Ask Me Three TRANSPORTATION:: To be determined by plan of care. May require transfer [place] [facility] [place] PLAN:: Shannan is being treated for cholecystitis. It is likely she will need surgery and due to her being high risk, this may require transfer to a tertiary care center. If Shannan requires a transfer, it will be by ambulance. CM will continue to support patient, family and discharge planning concerns.
[2020-04-19 09:00] VITALS: TEMP 38.1
[2020-04-19] MEDS: Acetaminophen 325 MG TAB 650 MG PO (09:00)
[2020-04-19] MEDS: Lactated Ringers 1,000 ML 125 ML IV (09:00)
--- NOTE | 2020-04-19 13:56 | PDOC.CMDIS ---
- If Service Date Differs Date of service: 04/19/20 (n) Time of Service: 13:56 LACE Index Scoring Tool - Questions: Length of Stay (in days): 1 Acuity (Admit via E.D.?): Yes Comorbidities: Diabetes w/o Complication E.D. Visits: 2 - Answers: Total Score: 7 Risk of Readmission: Low Risk Care Management Discharge Reason for Hospitalization: Acute cholecystitis Discharge Plan: [place] [facility]. She will follow up with their providers and paln of care. Patient/Family Education Needs: Discharge french, limitations, Ask Me Three Services Needed at Discharge: Transportation
== END 2020-04-19 12:23 | disposition short-term general hospital (02) | DRG 446 ==
LOC: ER 09:47 → MS 10:46
PROVIDERS: Student in an Organized Health Care Education/Training Program; Admitting Provider Surgery; Emergency Provider Registered Nurse Emergency; PCP Family Medicine; Visit Provider Surgery
DX: K81.0 Acute cholecystitis (principal); I35.0 Nonrheumatic aortic (valve) stenosis; E11.9 Type 2 diabetes mellitus without complications; I10 Essential (primary) hypertension; I48.0 Paroxysmal atrial fibrillation; Z79.4 Long term (current) use of insulin; R07.89 Other chest pain
CPT/HCPCS: 36415; 80053; 83690; 93005; 96361; 96365; 96375; 96376; 99223; 99232; 99285; U0003; 74176; 81003; 81015; 83605; 84484; 85025; 85610; 85730; 93010; J2405; J2543

== ENCOUNTER 2020-06-10 12:18 | Emergency (ER) | payer BC, SELFPAY ==
[2020-06-10] VITALS (16 sets, daily range): BP systolic 133–143; BP diastolic 48–69; PULSE 70–87; RESP 16–24; TEMP 36.6–37.1; O2SAT 95–98
--- NOTE | 2020-06-10 12:38 | W.ED.GENAD ---
Discharge Plan Disposition Patient Disposition: HOME Condition: Stable Discharge Details Clinical Impression: Vomiting and diarrhea Primary Care Provider: Reshma Baig ED Provider: Lise Merchant Home Meds and New Rx's Prescriptions: Continued Lantus U-100 Insulin 100 UNITS/ML solution 25 unit Sub-Q BID RF: 0 Humalog U-100 Insulin 100 UNIT/ML cartridge 15 unit Sub-Q TID RF: 0 ascorbic acid (vitamin C) [Vitamin C] 1,000 mg Tablet 1,000 mg PO DAILY RF: 0 Multi For Her 18 mg iron-600 mcg-40 mcg Capsule 1 tab-cap PO DAILY RF: 0 polyethylene glycol 3350 [Miralax] 17 gram Powder In Packet 17 g PO DAILY RF: 0 amiodarone 200 mg Tablet 200 mg PO BID RF: 0 metoprolol succinate 100 mg Tablet Extended Release 24 Hr 300 mg PO HS RF: 0 clopidogrel [Plavix] 75 mg Tablet 75 mg PO DAILY RF: 0 pantoprazole [Protonix] 40 mg Tablet,Delayed Release (Dr/Ec) 40 mg PO BID RF: 0 losartan 25 mg Tablet 25 mg PO DAILY RF: 0 bisacodyl 5 mg Tablet,Delayed Release (Dr/Ec) 10 mg PO PRN PRNRF: 0 aspirin 81 mg Tablet 81 mg PO DAILY RF: 0 rosuvastatin 20 mg Tablet 20 mg PO HS RF: 0 vitamin B complex [B Complex-Vitamin B12] 1 EACH tablet 1 ea PO DAILY RF: 0 cholecalciferol (vitamin D3) [Vitamin D3] 1,000 UNIT capsule 1,000 unit PO DAILY RF: 0 losartan 100 MG tablet 100 mg PO HS RF: 0 Discharge Instructions Instructions: Acute Nausea and Vomiting (ED), Acute Diarrhea (ED) Additional Instructions: Drink plenty of fluids and get plenty of rest. Take the Zofran as needed and directed for nausea and vomiting. If your diarrhea returns, attempt to obtain a stool sample for collection to bring to the hospital laboratory department for analysis. Call your primary care doctor tomorrow to schedule a follow-up appointment for reevaluation. Return immediately to the emergency department if you develop any worsening or new concerning symptoms. Discharge Data Discharge Date/Time-TO BE ENTERED AT DEPARTURE: 06/10/20 17:29 Discharge Physician: Lise Merchant Medical Decision Making 0220 -- 79-year-old female with a history of diabetes, hypertension, aortic stenosis with a history of recent acute cholecystitis treated with gallbladder drain at [facility] due to course complicated by LA with stent placement who presents with vomiting and diarrhea since 3 AM this morning. She recently finished Augmentin for her cholecystitis. She denies any fever or abdominal pain. Vitals within normal limits and she is afebrile. She appears nontoxic. She has a drain in the right upper quadrant with no surrounding tenderness or cellulitis. Differential diagnosis includes antibiotic associated diarrhea, C. difficile diarrhea, gastroenteritis, etc. Will place an IV, bolus IV fluids, screening labs, urinalysis, stool sample. As she has no complaint of pain, afebrile and abdomen nontender, do not see indication for CT imaging at this time. 1510 -- labs reviewed. White blood cell count 12. Hemoglobin 8.3. Potassium 3.1. Will replete. Patient reassessed and she feels better. She has had no vomiting or diarrhea here. She has been unable to give a urine sample. We will give additional IV fluids. 1700 --urinalysis notes 10-20 WBCs with trace leukocyte esterase but many epithelial cells. She has no complaint of urinary symptoms, abdominal pain or fever, will hold on treatment with antibiotics at this time. Patient was unable to give a stool sample, so it appears less likely this could be C. difficile diarrhea as she had no diarrhea or even vomiting while here in the ED. Patient was able to ambulate and she feels much better. She remains hemodynamically stable. She was sent home with a stool sample kit if her watery diarrhea returns to test for C. difficile. Patient feels good to go home. Advised to follow up with the primary care doctor for re-evaluation. Usual and customary return precautions given prior to discharge. Medical Records Medical records reviewed: Yes I reviewed the patient's medical records. Lab Data Lab results reviewed: Yes I reviewed the patient's lab results. Labs: Laboratory Tests Range/Units 06/10/20 06/10/20 06/10/20 12:37 13:08 13:08 WBC (4.4-10.8) 10^3/uL RBC (3.93-5.22) 10^6/uL Hgb (11.2-15.7) g/dL Hct (36.0-46.0) % MCV (80-95) fL MCH (27.0-33.0) pg MCHC (32.0-36.0) % RDW (11.7-14.6) % Plt Count (130-400) 10^3/uL MPV (8.0-11.0) fL Immature Gran % Neutrophils % Lymphocytes % Monocytes % Eosinophils % Basophils % Nucleated RBC % % Absolute Neutrophils (1.2-6.7) 10^3/uL Absolute Lymphocytes (1.2-3.4) 10^3/uL Absolute Monocytes (0.1-0.8) 10^3/uL Absolute Eosinophils (0.0-0.7) 10^3/uL Absolute Basophils (0.0-0.2) 10^3/uL RBC Morphology Polychromasia Hypochromasia Anisocytosis Microcytosis Sodium (136-145) mmol/L Potassium (3.5-5.1) mmol/L Chloride (98-107) mmol/L Carbon Dioxide (21.0-32.0) mmol/L Anion Gap (3-11) mmol/L BUN (7-18) mg/dL Creatinine (0.55-1.02) mg/dL Estimated GFR/1.73 m2 (mL/min/1.73m2) Glucose (74-106) mg/dL Calcium (8.5-10.1) mg/dL Total Bilirubin (0.2-1.0) mg/dL AST (15-37) U/L ALT (14-59) U/L Alkaline Phosphatase (46-116) U/L Total Protein (6.4-8.2) g/dL Albumin (3.4-5.0) g/dL Lipase (73-393) U/L Urine Color (Yellow) Yellow Urine Clarity (Clear) Clear Urine pH (5-8) 5.5 Ur Specific [place] (1.005-1.025) 1.025 Urine Protein (Negative) mg/dL Trace H Urine Ketones (Negative) mg/dL Trace H Urine Blood (Negative) Negative Urine Nitrite (Negative) Negative Urine Bilirubin (Negative) Negative Urine Urobilinogen (Up TO 0.2) EU/dL 0.2 Ur Leukocyte Esterase (Negative) Trace H Urine RBC (0-2) HPF Negative Urine WBC (0-5) HPF 10-20 H Ur Epithelial Cells (Negative) HPF Many Urine Crystals (Negative) HPF Negative Urine Bacteria (Negative) HPF Few Urine Mucus (Negative) Heavy Ur Culture Indicated? No/sq. contamination Urine Glucose (Negative) mg/dL Negative Stool Campylobacter PCR Cancelled Stl C.difficile Tox PCR Cancelled Stool Salmonella PCR Cancelled Stool Shigella PCR Cancelled Shiga Toxin (PCR) Cancelled Range/Units 06/10/20 06/10/20 13:34 13:34 WBC (4.4-10.8) 10^3/uL 12.06 H RBC (3.93-5.22) 10^6/uL 3.17 L Hgb (11.2-15.7) g/dL 8.3 L Hct (36.0-46.0) % 27.0 L MCV (80-95) fL 85.2 MCH (27.0-33.0) pg 26.2 L MCHC (32.0-36.0) % 30.7 L RDW (11.7-14.6) % 15.0 H Plt Count (130-400) 10^3/uL 262 MPV (8.0-11.0) fL 10.0 Immature Gran % 0.5 Neutrophils % 80.2 Lymphocytes % 13.2 Monocytes % 5.7 Eosinophils % 0.2 Basophils % 0.2 Nucleated RBC % % 0 Absolute Neutrophils (1.2-6.7) 10^3/uL 9.67 H Absolute Lymphocytes (1.2-3.4) 10^3/uL 1.59 Absolute Monocytes (0.1-0.8) 10^3/uL 0.69 Absolute Eosinophils (0.0-0.7) 10^3/uL 0.02 Absolute Basophils (0.0-0.2) 10^3/uL 0.02 RBC Morphology See below Polychromasia Present Hypochromasia 1+ Anisocytosis 1+ Microcytosis 1+ Sodium (136-145) mmol/L 140 Potassium (3.5-5.1) mmol/L 3.1 L Chloride (98-107) mmol/L 104 Carbon Dioxide (21.0-32.0) mmol/L 25.4 Anion Gap (3-11) mmol/L 10.6 BUN (7-18) mg/dL 11 Creatinine (0.55-1.02) mg/dL 0.99 Estimated GFR/1.73 m2 (mL/min/1.73m2) 54.11 Glucose (74-106) mg/dL 138 H Calcium (8.5-10.1) mg/dL 8.4 L Total Bilirubin (0.2-1.0) mg/dL 1.3 H AST (15-37) U/L 13 L ALT (14-59) U/L 14 Alkaline Phosphatase (46-116) U/L 92 Total Protein (6.4-8.2) g/dL 6.1 L Albumin (3.4-5.0) g/dL 2.9 L Lipase (73-393) U/L 96 Urine Color (Yellow) Urine Clarity (Clear) Urine pH (5-8) Ur Specific [place] (1.005-1.025) Urine Protein (Negative) mg/dL Urine Ketones (Negative) mg/dL Urine Blood (Negative) Urine Nitrite (Negative) Urine Bilirubin (Negative) Urine Urobilinogen (Up TO 0.2) EU/dL Ur Leukocyte Esterase (Negative) Urine RBC (0-2) HPF Urine WBC (0-5) HPF Ur Epithelial Cells (Negative) HPF Urine Crystals (Negative) HPF Urine Bacteria (Negative) HPF Urine Mucus (Negative) Ur Culture Indicated? Urine Glucose (Negative) mg/dL Stool Campylobacter PCR Stl C.difficile Tox PCR Stool Salmonella PCR Stool Shigella PCR Shiga Toxin (PCR) HPI General Mode of arrival: ambulatory. Date/Time Provider Initiated Documentation: 06/10/20 12:24. Limitations to Documentation: no limitations. Information obtained by: patient. HPI Narrative: Patient is a 79-year-old female with a history of diabetes, hypertension, aortic stenosis with a recent diagnosis of acute cholecystitis with temporizing measure of gallbladder drain as her course was complicated by LA with stent placement at [facility] who presents for vomiting and diarrhea since 3:30 AM this morning. She states she has vomited multiple times over 1/2-hour which was mainly clear in bile. She states she had approximately 6 episodes of watery yellow-brown diarrhea, with the last episode occurring just prior to arrival. She denies fever, chest pain, shortness of breath, abdominal pain, urinary symptoms, recent travel, recent known sick contacts. She states she believes she recently finished antibiotics for her gallbladder given to her at [facility] but she is unsure of the name. Related Data Home Medications Medication Instructions Recorded Confirmed Humalog U-100 Insulin 15 unit SUB-Q TID 11/28/15 06/10/20 Lantus U-100 Insulin 25 unit SUB-Q BID 11/28/15 06/10/20 cholecalciferol (vitamin D3) 1,000 unit PO DAILY 01/30/18 06/10/20 [Vitamin D3] losartan 100 mg PO HS 01/30/18 06/10/20 vitamin B complex [B 1 ea PO DAILY 01/30/18 06/10/20 Complex-Vitamin B12] Multi For Her 1 tab-cap PO DAILY 04/14/20 06/10/20 ascorbic acid (vitamin C) [Vitamin 1,000 mg PO DAILY 04/14/20 06/10/20 C] amiodarone 200 mg PO BID 06/10/20 06/10/20 aspirin 81 mg PO DAILY 06/10/20 06/10/20 bisacodyl 10 mg PO PRN PRN 06/10/20 06/10/20 clopidogrel [Plavix] 75 mg PO DAILY 06/10/20 06/10/20 losartan 25 mg PO DAILY 06/10/20 06/10/20 metoprolol succinate 300 mg PO HS 06/10/20 06/10/20 pantoprazole [Protonix] 40 mg PO BID 06/10/20 06/10/20 polyethylene glycol 3350 [Miralax] 17 g PO DAILY 06/10/20 06/10/20 rosuvastatin 20 mg PO HS 06/10/20 06/10/20 Allergies Allergy/AdvReac Type Severity Reaction Status Date / Time codeine AdvReac Mild Verified 06/10/20 12:28 diltiazem AdvReac Mild Verified 06/10/20 12:28 epinephrine AdvReac Mild Verified 06/10/20 12:28 lisinopril AdvReac Mild cough Verified 06/10/20 12:28 pollen extracts AdvReac Verified 06/10/20 12:28 General Stated Complaint: Nausea/Vomit/Diar LACEY: 3 Review of Systems All systems reviewed & are unremarkable except as noted in HPI and below Constitutional Constitutional: Reports as per HPI, Denies chills and Denies fever(s) Eyes Eyes: Denies blurry vision ENT Ears, Nose, Mouth, and Throat: Denies dizziness, Denies sore throat and Denies throat swelling Cardiovascular Cardiovascular: Denies chest pain and Denies dyspnea Respiratory Respiratory: Denies cough and Denies dyspnea Gastrointestinal Gastrointestinal: Denies abdominal pain, Reports diarrhea and Reports vomiting Genitourinary Genitourinary: Denies hematuria and Denies dysuria Musculoskeletal Musculoskeletal: Denies back pain and Denies numbness Integumentary/Breasts Skin/Breast: Denies lesions and Denies rash Neurologic Neurologic: Denies dizziness, Denies localized weakness and Denies numbness Allergic/Immunologic Allergic/Immunologic: Denies throat swelling [facility] Medical History (Updated 06/10/20 @ 17:13 by Lise Merchant DO) Aortic stenosis BP (high blood pressure) Closed fracture of left distal fibula (03/31/19) Diabetes mellitus Surgical History (Updated 04/18/20 @ 12:03 by Bethany Rosado MD) History of cataract surgery History of hysterectomy Social History Smoking/Tobacco Use Status: Never Alcohol Intake: never Drug use: Never Substance use type: does not use Do you feel safe at home: Yes Do you feel safe in your relationship?: Yes Exam Const General: cooperative and no acute distress Orientation: alert, awake and oriented x3 HENMT Head: normal to inspection Face and sinus: normal facial exam Eyes General: appearance normal, both eyes and all related structures Pupils: PERRL EOM: EOM intact bilaterally Neck Neck: normal visual inspection and No submandibular swelling Lymphatic: no lymphadenopathy noted Chest Chest: normal inspection of the chest and no tenderness Resp Effort & Inspection: normal respiratory effort and able to speak in complete sentences Auscultation: clear to auscultation bilaterally Cardio Rate: regular rate Rhythm: regular rhythm Heart Sounds: murmur systolic IV/ GI Inspection: normal to inspection and other (Gallbladder drain RUQ w/ R leg bag w/ orange-yellow clear fluid) Palpation: soft, not firm, not rigid and nontender Auscultation: normal bowel sounds Back/Spine/Pelvis Thoracic/Lumbar Spine: thoracic and lumbar spine normal to inspection Pelvis: no pain with anterior-posterior compression Skin General skin exam: no rashes or lesions noted Neuro General: patient alert, patient awake and patient oriented x3 Cognition: normal cognition Speech: speech normal Motor: muscle tone normal throughout Sensory Exam: no sensory deficits noted Extrem General: normal to inspection, full ROM, capillary refill normal, no calf tenderness bilaterally and no edema Psych Appearance: grossly normal Mental Status: mental status grossly normal Speech and Movement: speech and movement normal Affect: normal affect Course Vital Signs Vital signs: Vital Signs Temperature 98.8 F 06/10/20 12:25 Pulse 87 06/10/20 12:25 Respiratory Rate 20 06/10/20 12:25 Blood Pressure 143/48 H 06/10/20 12:25 Pulse Oximetry 95 06/10/20 12:25 Temperature 98.8 F 06/10/20 12:25 Temperature Source Skin 06/10/20 12:25 Pulse 87 06/10/20 12:25 Respiratory Rate 20 06/10/20 12:25 Respiratory Effort Non-Labored 06/10/20 12:30 Blood Pressure 143/48 H 06/10/20 12:25 Blood Pressure Position Sitting 06/10/20 12:25 Pulse Oximetry 95 06/10/20 12:25 Oxygen Delivery Method Room Air 06/10/20 12:25 Oxygen Flow Rate 0 06/10/20 12:25
[2020-06-10] MEDS: Normal Saline 500 ML IV ×2 (13:38→15:28)
[2020-06-10] MEDS: Ondansetron 4 MG/2 ML VIAL IVP (13:39)
[2020-06-10 13:41] LABS: Abs Immature Grans 0.06 10^3/uL (0.0-0.06); Absolute Eosinophil Count 0.02 10^3/uL (0.0-0.7); Absolute Lymphocyte Count 1.59 10^3/uL (1.2-3.4); Absolute Monocyte Count 0.69 10^3/uL (0.1-0.8); Absolute Neutrophil Count 9.67 10^3/uL (1.2-6.7); Basophils % 0.2; Eosinophils % 0.2; HGB 8.3 g/dL (11.2-15.7); Immature Grans % 0.5; Lymphocytes % 13.2; MCH 26.2 pg (27.0-33.0); MCHC 30.7 % (32.0-36.0); MCV 85.2 fL (80-95); Monocytes % 5.7; Neutrophils % 80.2; Nucleated RBC 0 %; Platelet Count 262 10^3/uL (130-400); RBC 3.17 10^6/uL (3.93-5.22); RDW-SD 46.8 fL; WBC 12.06 10^3/uL (4.4-10.8)
[2020-06-10 13:45] LABS: Absolute Basophil Count 0.02 10^3/uL (0.0-0.2)
[2020-06-10 13:55] LABS: ALT 14 U/L (14-59); AST 13 U/L (15-37); Albumin 2.9 g/dL (3.4-5.0); Alkaline Phosphatase 92 U/L (46-116); Anion Gap 10.6 mmol/L (3-11); BUN 11 mg/dL (7-18); Bilirubin, Total 1.3 mg/dL (0.2-1.0); CO2 25.4 mmol/L (21.0-32.0); CREATININE 0.99 mg/dL (0.55-1.02); Calcium 8.4 mg/dL (8.5-10.1); Chloride 104 mmol/L (98-107); Estimated GFR 54.11 (mL/min/1.73m2); Glucose 138 mg/dL (74-106); Lipase 96 U/L (73-393); Potassium 3.1 mmol/L (3.5-5.1); Sodium 140 mmol/L (136-145); Total Protein 6.1 g/dL (6.4-8.2)
[2020-06-10 13:57] LABS: Anisocytosis 1+; Diff Comment RBC Morph Reviewed; Hypochromasia 1+; Microcytosis 1+; Polychromasia Present
[2020-06-10] MEDS: Potassium Chloride 20 MEQ TABCR 40 MEQ PO (14:44)
[2020-06-10 16:30] LABS: Bilirubin Negative (Negative); Blood Negative (Negative); Clarity Clear (Clear); Glucose Negative (Negative); Ketones Trace mg/dL (Negative); Leukocyte Esterase Trace (Negative); Nitrite Negative (Negative); Specific Gravity 1.025 (1.005-1.025); Urobilinogen 0.2 EU/dL (Up TO 0.2); pH 5.5 (5-8)
[2020-06-10 16:41] LABS: RBC Negative HPF (0-2)
[2020-06-10 16:42] LABS: Bacteria Few HPF (Negative); C & S Indicated? No/Sq. Contamination; Crystals Negative HPF (Negative); Epithelial Cells Many HPF (Negative); Mucus Heavy (Negative)
== END 2020-06-10 17:29 | disposition home or self-care (01) ==
PROVIDERS: Emergency Provider Physician Assistant; PCP Family Medicine
DX: R11.2 Nausea with vomiting, unspecified (principal); R19.7 Diarrhea, unspecified; E87.6 Hypokalemia; Z96.89 Presence of other specified functional implants; E11.9 Type 2 diabetes mellitus without complications; Z79.4 Long term (current) use of insulin; I10 Essential (primary) hypertension
CPT/HCPCS: 36415; 36416; 80053; 82962; 83690; 87493; 87505; 96361; 96374; 99284; 81003; 81015; 85025; J2405

== ENCOUNTER 2020-06-11 16:01 | Outpatient (REF) | payer BC, SELFPAY | END 2020-06-11 16:21 | LOC: LBN 16:01 | PROVIDERS: PCP Family Medicine; Visit Provider Physician Assistant | DX: R19.7 Diarrhea, unspecified (principal) ==

== ENCOUNTER 2020-06-15 16:50 | Outpatient (REF) | payer BC, SELFPAY ==
[2020-06-21 15:17] LABS: Misc Referral (VDH) See Comments
== END 2020-06-15 17:10 ==
LOC: LBN 16:50
PROVIDERS: PCP Family Medicine; Visit Provider Physician Assistant
DX: R19.7 Diarrhea, unspecified (principal)

== ENCOUNTER 2020-07-27 15:12 | Emergency (ER) | payer BC, SELFPAY ==
[2020-07-27] VITALS (21 sets, daily range): BP systolic 127–188; BP diastolic 36–66; PULSE 55–64; RESP 11–21; TEMP 36–36.4; O2SAT 88–99
--- NOTE | 2020-07-27 15:15 | RT.EKG_ITS ---
APPROVED REPORT Exam: Resting ECG Patient Location: E HR:56 bpm ECG Measurements Heart Rate 56 AXIS MO 177 P 24 QRSd 138 QRS 1 QT 685 T 7 QTc 664 Conclusion Sinus bradycardia...rate< 60 Right bundle branch block...QRSd>120, terminal axis(90,270) Prolonged QT interval...QTc >500mS I have reviewed and interpreted ECG and agree with software generated interpretation.
--- NOTE | 2020-07-27 15:54 | NUR.NOTE ---
Nursing Note:pt would like to wait for IV insertion until after seen by provider.
--- NOTE | 2020-07-27 15:57 | ED.GENADUL_ITS ---
Discharge Plan Disposition Patient Disposition: HOME Condition: Improving Discharge Details Clinical Impression: Acute exacerbation of chronic low back pain, Chronic mid back pain Primary Care Provider: Reshma Baig ED Provider: Lise Merchant Home Meds and New Rx's Prescriptions: New methocarbamol 500 mg tablet 500 mg PO Q6H PRN (Reason: muscle spasm) Qty: 14 RF: 0 oxycodone 5 mg tablet 5 mg PO Q6H PRN (Reason: pain) Qty: 7 RF: 0 Continued Lantus U-100 Insulin 100 UNITS/ML solution 25 unit Sub-Q BID RF: 0 Humalog U-100 Insulin 100 UNIT/ML cartridge 15 unit Sub-Q TID RF: 0 ascorbic acid (vitamin C) [Vitamin C] 1,000 mg Tablet 1,000 mg PO DAILY RF: 0 Multi For Her 18 mg iron-600 mcg-40 mcg Capsule 1 tab-cap PO DAILY RF: 0 polyethylene glycol 3350 [Miralax] 17 gram Powder In Packet 17 g PO DAILY PRNRF: 0 amiodarone 200 mg Tablet 200 mg PO BID RF: 0 metoprolol succinate 100 mg Tablet Extended Release 24 Hr 300 mg PO HS RF: 0 clopidogrel [Plavix] 75 mg Tablet 75 mg PO DAILY RF: 0 pantoprazole [Protonix] 40 mg Tablet,Delayed Release (Dr/Ec) 40 mg PO BID RF: 0 losartan 25 mg Tablet 25 mg PO DAILY RF: 0 aspirin 81 mg Tablet 81 mg PO DAILY RF: 0 rosuvastatin 20 mg Tablet 20 mg PO HS RF: 0 vitamin B complex [B Complex-Vitamin B12] 1 EACH tablet 1 ea PO DAILY RF: 0 cholecalciferol (vitamin D3) [Vitamin D3] 1,000 UNIT capsule 1,000 unit PO DAILY RF: 0 losartan 100 MG tablet 100 mg PO HS RF: 0 Discharge Instructions Instructions: Back Pain (ED), Degenerative Disc Disease (ED) Additional Instructions: Drink plenty of fluids and get plenty of rest. Alternate tylenol and motrin as needed and directed for pain. Take the oxycodone and methocarbamol for pain not relieved with Motrin. Use [id number] Lidoderm patches as needed and directed for pain. Follow-up with your primary care doctor in 1 week. Return to the emergency department with any worsening or new concerning symptoms. Discharge Data Discharge Date/Time-TO BE ENTERED AT DEPARTURE: 07/27/20 19:22 Discharge Physician: Lise Merchant Medical Decision Making 1525 -- 79-year-old female with a history of aortic valve replacement and cholecystectomy within the last few months presents with her mid back pain for the past several months that is worse with movement. She suspected her back pain was due to her gallbladder disease and expected it to resolve after her cholecystectomy but it has persisted. She states the pain is worse with movement. No cauda equina symptoms. No urinary symptoms. She denies any fever or abdominal pain. Her midline and bilateral paraspinal thoracic spine tender to palpation. No evidence of trauma, cellulitis, step-off. Abdomen is soft and nontender. Her surgical laparoscopic incision sites are healing well without cellulitis. She has no focal deficits. Neurovascular intact. Discussed with patient at length that considering her history and age, would recommend IV, labs, CT chest abdomen and pelvis in addition to thoracic and lumbar spine but she is declining IV and lab work due to her recent long hospital stay and course and does not want any IV placement. Risks of and disability due to missed diagnoses explained and patient fully understands and is still declining. She demonstrates capacity to make decisions. 1900 -- Patient given a dose of oxycodone, Valium and Lidoderm patch and referred for CT thoracic and lumbar spine which note degenerative disc disease as well as an age-indeterminate L2 compression fracture. Pt was informed of 1.4cm thyroid gland nodule. Advised to f/u for outpatient thyroid US. Patient reassessed and she admits to significant improvement of pain is requesting to go home. We will send with oxycodone and methocarbamol. Advised to follow-up with her primary care doctor for reevaluation and to return here with any concerns. Medical Records Medical records reviewed: Yes I reviewed the patient's medical records. Imaging Data Radiologic Study: Radiologist's impression: CT Thoracic Spine Without Contrast Exam date and time: 07/27/2020 5:21 PM Age: 79 years old Clinical indication: Mid back pain, R/O acute fx TECHNIQUE: Imaging protocol: Computed tomography images of the thoracic spine without contrast. Radiation optimization: All CT scans at this facility use at least one of these dose optimization techniques: automated exposure control; mA and/or kV adjustment per patient size (includes targeted exams where dose is matched to clinical indication); or iterative reconstruction. COMPARISON: No relevant prior studies available. FINDINGS: Vertebrae: Thoracic vertebral body heights are maintained. Multilevel facet arthropathy. Spinous processes are intact. No acute thoracic spine fracture. Discs/Spinal canal/Neural foramina: Multilevel degenerative disc height loss and osteophyte formation. No significant areas of canal narrowing. Soft tissues: Unremarkable. Heart: Mitral annular calcifications. Mild coronary artery calcifications. Thyroid: 1.4 cm heterogeneous nodule in the left lobe of the thyroid gland. IMPRESSION: 1. No acute thoracic spine fracture. 2. 1.4 cm heterogeneous nodule in the left lobe of the thyroid gland. Recommend further evaluation with nonemergent thyroid ultrasound. 3. Chronic findings, as above. CT Lumbar Spine Without Contrast Exam date and time: 07/27/2020 5:21 PM Age: 79 years old Clinical indication: Mid back pain, R/O acute FX TECHNIQUE: Imaging protocol: Computed tomography images of the lumbar spine without contrast. Radiation optimization: All CT scans at this facility use at least one of these dose optimization techniques: automated exposure control; mA and/or kV adjustment per patient size (includes targeted exams where dose is matched to clinical indication); or iterative reconstruction. COMPARISON: No relevant prior studies available. FINDINGS: Vertebrae: Age-indeterminate mild compression fracture of the superior endplate of L2. Remaining lumbar vertebral body heights are maintained. Lumbar lordosis is preserved. Vertebral body heights are maintained. Multilevel facet arthropathy. No measurable spondylolisthesis. Discs/Spinal canal/Neural foramina: Multilevel degenerative changes with intervertebral disc height loss and osteophyte formation. Soft tissues: Unremarkable. IMPRESSION: 1. Age-indeterminate mild compression fracture of the superior endplate of L2. This can be further assessed with MRI, if clinically indicated. 2. Other chronic findings, as above. ECG Data Attestation: I personally reviewed and interpreted this ECG (s) as follows: Interpretation: Rate of 56, sinus, no acute ST elevation or depression. CA 177. QRS 138. Prolonged QT at 664. HPI General Mode of arrival: ambulatory . Date/Time Provider Initiated Documentation: 07/27/20 15:31 . Limitations to Documentation: no limitations . Information obtained by: patient . HPI Narrative: Pt is a 79yo F w/ a h/o diabetes, aortic stenosis, htn, cad with recent aortic valve replacement and cholecystectomy in the last few months who presents to the ED with her mid back pain for the past several months that is worse with movement. She states that she thought her pain was due to her gallbladder disease but the pain has persisted since her cholecystectomy and she feels that it is now muscular because it is worse with movement. She denies any fever, chest pain, shortness of breath, abdominal pain, nausea, vomiting, diarrhea or urinary symptoms. She took Tylenol and ibuprofen today without significant relief. 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 Related Data Home Medications Medication Instructions Recorded Confirmed Humalog U-100 Insulin 15 unit SUB-Q TID 11/28/15 07/27/20 Lantus U-100 Insulin 25 unit SUB-Q BID 11/28/15 07/27/20 cholecalciferol (vitamin D3) 1,000 unit PO DAILY 01/30/18 07/27/20 [Vitamin D3] losartan 100 mg PO HS 01/30/18 07/13/20 vitamin B complex [B 1 ea PO DAILY 01/30/18 07/27/20 Complex-Vitamin B12] Multi For Her 1 tab-cap PO DAILY 04/14/20 07/27/20 ascorbic acid (vitamin C) [Vitamin 1,000 mg PO DAILY 04/14/20 07/27/20 C] amiodarone 200 mg PO BID 06/10/20 07/27/20 aspirin 81 mg PO DAILY 06/10/20 07/27/20 clopidogrel [Plavix] 75 mg PO DAILY 06/10/20 07/27/20 losartan 25 mg PO DAILY 06/10/20 07/27/20 metoprolol succinate 300 mg PO HS 06/10/20 07/27/20 pantoprazole [Protonix] 40 mg PO BID 06/10/20 07/27/20 polyethylene glycol 3350 [Miralax] 17 g PO DAILY PRN 06/10/20 07/27/20 rosuvastatin 20 mg PO HS 06/10/20 07/27/20 methocarbamol 500 mg PO Q6H PRN #14 tab 07/27/20 oxycodone 5 mg PO Q6H PRN #7 tab 07/27/20 Previous Rx's Medication Instructions Recorded methocarbamol 500 mg PO Q6H PRN #14 tab 07/27/20 oxycodone 5 mg PO Q6H PRN #7 tab 07/27/20 Allergies Allergy/AdvReac Type Severity Reaction Status Date / Time codeine AdvReac Mild Verified 07/27/20 15:29 diltiazem AdvReac Mild Verified 07/27/20 15:29 epinephrine AdvReac Mild Verified 07/27/20 15:29 lisinopril AdvReac Mild cough Verified 07/27/20 15:29 pollen extracts AdvReac Verified 07/27/20 15:29 General Stated Complaint: Nk/Back Pain LACEY: 3 Review of Systems All systems reviewed & are unremarkable except as noted in HPI and below Constitutional Constitutional: Reports as per HPI, Denies chills and Denies fever(s) Eyes Eyes: Denies blurry vision ENT Ears, Nose, Mouth, and Throat: Denies dizziness, Denies sore throat and Denies throat swelling Cardiovascular Cardiovascular: Denies chest pain and Denies dyspnea Respiratory Respiratory: Denies cough and Denies dyspnea Gastrointestinal Gastrointestinal: Denies abdominal pain, Denies diarrhea and Denies vomiting Genitourinary Genitourinary: Denies hematuria and Denies dysuria Musculoskeletal Musculoskeletal: Reports back pain and Denies numbness Integumentary/Breasts Skin/Breast: Denies lesions and Denies rash Neurologic Neurologic: Denies dizziness, Denies localized weakness and Denies numbness Allergic/Immunologic Allergic/Immunologic: Denies throat swelling [facility] Medical History (Updated 07/27/20 @ 18:50 by Lise Merchant DO) Aortic stenosis Atherosclerotic cardiovascular disease BP (high blood pressure) Closed fracture of left distal fibula (03/31/19) Diabetes mellitus Surgical History History of cataract surgery History of hysterectomy Social History Smoking/Tobacco Use Status: Never Smoking risk assessment performed?: Yes Alcohol Intake: never Drug use: Never Substance use type: does not use Do you feel safe at home: Yes Do you feel safe in your relationship?: Yes Exam Const General: cooperative, healthy appearing and no acute distress HENMT Head: normal to inspection Face and sinus: normal facial exam Eyes General: appearance normal, both eyes and all related structures EOM: EOM intact bilaterally Neck Neck: normal visual inspection and No submandibular swelling Lymphatic: no lymphadenopathy noted Chest Chest: normal inspection of the chest and no tenderness Resp Effort & Inspection: normal respiratory effort and able to speak in complete s entences Auscultation: clear to auscultation bilaterally Cardio Rate: regular rate Rhythm: regular rhythm Heart Sounds: murmur systolic IV/ GI Inspection: normal to inspection Palpation: soft, not firm, not rigid and nontender Auscultation: normal bowel sounds Back/Spine/Pelvis Thoracic/Lumbar Spine: thoracic and lumbar spine normal to inspection, paraspinal tenderness (R mid back), thoracic spinal tenderness and lumbar spinal tenderness Skin General skin exam: no rashes or lesions noted Neuro General: patient alert, patient awake and patient oriented x3 Cognition: normal cognition Speech: speech normal Motor: muscle tone normal throughout and strength 5/5 throughout Sensory Exam: no sensory deficits noted Extrem General: normal to inspection, full ROM, capillary refill normal, no calf tenderness bilaterally and no edema Psych Appearance: grossly normal Mental Status: mental status grossly normal Speech and Movement: speech and movement normal Affect: normal affect Course Vital Signs Vital signs: Vital Signs Temperature 96.8 F L 07/27/20 15:23 Pulse 63 07/27/20 15:23 Respiratory Rate 20 07/27/20 15:23 Blood Pressure 127/36 L 07/27/20 15:23 Pulse Oximetry 99 07/27/20 15:23 Temperature 96.8 F L 07/27/20 15:23 Temperature Source Skin 07/27/20 15:23 Pulse 63 07/27/20 15:23 Respiratory Rate 20 07/27/20 15:23 Respiratory Effort 07/27/20 15:54 Blood Pressure 127/36 L 07/27/20 15:23 Blood Pressure Position Sitting 07/27/20 15:23 Pulse Oximetry 99 07/27/20 15:23 Oxygen Delivery Method Room Air 07/27/20 15:23 Oxygen Flow Rate 0 07/27/20 15:23 Pain Level 5 07/27/20 15:23
--- NOTE | 2020-07-27 16:30 | DI.CT_ITS ---
EXAM: CT THORACIC LUMBAR SPINE WO CLINICAL HISTORY: mid back pain, r/o acute fx TECHNIQUE: No IV contrast. Multiplanar reconstructions performed COMPARISON: No exams were available for comparison FINDINGS: Thoracic spinal column: No evidence fracture, malalignment, or nor acute compromise of the canal. Lumbar spinal column colon there is an age indeterminate mild compression fracture of L2 vertebral lindy dy. Correlation with site of tenderness is recommended. Multilevel facet arthropathy but no facet m alalignment. No listhesis. IMPRESSION: 1. No evidence of thoracic vertebral fracture nor acute compromise of the thoracic spinal canal. 2. Compression fracture of L2, age indeterminate. No canal compromise at this level. Correlation wi th site of tenderness is recommended.
[2020-07-27] MEDS: Lidocaine 5% Patch 1 PATCH TP (17:04)
[2020-07-27] MEDS: oxyCODONE 5 MG TAB PO (17:04)
[2020-07-27] MEDS: diazePAM 5 MG TAB PO (17:04)
[2020-07-27 17:10] LABS: Bilirubin Negative (Negative); Blood Negative (Negative); Clarity Clear (Clear); Glucose Negative (Negative); Ketones Negative (Negative); Leukocyte Esterase Trace (Negative); Nitrite Negative (Negative); Urobilinogen 0.2 EU/dL (Up TO 0.2); pH 5.5 (5-8)
[2020-07-27 17:26] LABS: Bacteria Few HPF (Negative); C & S Indicated? No/Sq. Contamination; Crystals Negative HPF (Negative); Epithelial Cells Many HPF (Negative); Mucus Negative (Negative); Other Cells Few Transitional (Negative); WBC 0-2 HPF (0-5)
--- NOTE | 2020-07-27 17:53 | DI.VRAD_ITS ---
PROCEDURE INFORMATION: Exam: CT Thoracic Spine Without Contrast Exam date and time: 07/27/2020 5:21 PM Age: 79 years old Clinical indication: Mid back pain, R/O acute fx TECHNIQUE: Imaging protocol: Computed tomography images of the thoracic spine without contrast. Radiation optimization: All CT scans at this facility use at least one of these dose optimization techniques: automated exposure control; mA and/or kV adjustment per patient size (includes targeted exams where dose is matched to clinical indication); or iterative reconstruction. COMPARISON: No relevant prior studies available. FINDINGS: Vertebrae: Thoracic vertebral body heights are maintained. Multilevel facet arthropathy. Spinous processes are intact. No acute thoracic spine fracture. Discs/Spinal canal/Neural foramina: Multilevel degenerative disc height loss and osteophyte formation. No significant areas of canal narrowing. Soft tissues: Unremarkable. Heart: Mitral annular calcifications. Mild coronary artery calcifications. Thyroid: 1.4 cm heterogeneous nodule in the left lobe of the thyroid gland. IMPRESSION: 1. No acute thoracic spine fracture. 2. 1.4 cm heterogeneous nodule in the left lobe of the thyroid gland. Recommend further evaluation with nonemergent thyroid ultrasound. 3. Chronic findings, as above. PROCEDURE INFORMATION: Exam: CT Lumbar Spine Without Contrast Exam date and time: 07/27/2020 5:21 PM Age: 79 years old Clinical indication: Mid back pain, R/O acute FX TECHNIQUE: Imaging protocol: Computed tomography images of the lumbar spine without contrast. Radiation optimization: All CT scans at this facility use at least one of these dose optimization techniques: automated exposure control; mA and/or kV adjustment per patient size (includes targeted exams where dose is matched to clinical indication); or iterative reconstruction. COMPARISON: No relevant prior studies available. FINDINGS: Vertebrae: Age-indeterminate mild compression fracture of the superior endplate of L2. Remaining lumbar vertebral body heights are maintained. Lumbar lordosis is preserved. Vertebral body heights are maintained. Multilevel facet arthropathy. No measurable spondylolisthesis. Discs/Spinal canal/Neural foramina: Multilevel degenerative changes with intervertebral disc height loss and osteophyte formation. Soft tissues: Unremarkable. IMPRESSION: 1. Age-indeterminate mild compression fracture of the superior endplate of L2. This can be further assessed with MRI, if clinically indicated. 2. Other chronic findings, as above. Dictated and Authenticated by: Dez Wagner MD. Ordering:ANTONIA Lezama MD
[2020-07-27] MEDS: Methocarbamol 500 MG TAB 1000 MG PO (19:14)
== END 2020-07-27 19:22 | disposition home or self-care (01) ==
PROVIDERS: Emergency Provider Physician Assistant; PCP Family Medicine
DX: M54.5 Low back pain (principal); M54.6 Pain in thoracic spine; G89.29 Other chronic pain; M51.35 Other intervertebral disc degeneration, thoracolumbar region; I10 Essential (primary) hypertension; E11.9 Type 2 diabetes mellitus without complications; Z79.4 Long term (current) use of insulin
CPT/HCPCS: 80053; 93005; 99284; 72128; 72131; 81003; 81015; 83735; 84484; 85025; 85610; 85730; 93010; 99285

== ENCOUNTER 2020-10-08 20:12 | Outpatient (REF) | payer BC, SELFPAY ==
[2020-10-08 21:26] LABS: COMMENT (LAB VIEW ONLY) 218.03 mg/dL; Microalb ug/mg Crea 27.9 ug/mg Cr
== END 2020-10-08 20:13 | disposition home or self-care (01) ==
LOC: NCHCN 20:12
PROVIDERS: PCP Family Medicine; Visit Provider Family Medicine
DX: I10 Essential (primary) hypertension (principal)
CPT/HCPCS: 82043; 82570

== ENCOUNTER 2020-11-29 18:56 | Outpatient (RCR) | payer MEDICARE, SELFPAY | END 2020-12-24 23:59 | disposition home or self-care (01) | LOC: CR 18:56 | PROVIDERS: PCP Family Medicine; Visit Provider Family Medicine | DX: Z51.89 Encounter for other specified aftercare (principal); Z95.2 Presence of prosthetic heart valve | CPT/HCPCS: S9472 ==

== ENCOUNTER 2020-12-24 16:50 | Outpatient (REF) | payer MEDICARE, SELFPAY ==
[2020-12-24 21:41] LABS: HCT 35.5 % (36.0-46.0); HGB 11.2 g/dL (11.2-15.7); MCH 26.2 pg (27.0-33.0); MCHC 31.5 % (32.0-36.0); MCV 83.1 fL (80-95); Platelet Count 229 10^3/uL (130-400); RBC 4.27 10^6/uL (3.93-5.22); RDW 13.2 % (11.7-14.6); RDW-SD 39.5 fL; WBC 6.82 10^3/uL (4.4-10.8)
[2020-12-24 21:56] LABS: Hemoglobin A1C 10.1 % (<5.7)
[2020-12-24 22:04] LABS: Albumin 3.9 g/dL (3.4-5.0); Anion Gap 10.2 mmol/L (3-11); BUN 17 mg/dL (7-18); CO2 27.8 mmol/L (21.0-32.0); Calcium 9.3 mg/dL (8.5-10.1); Chloride 105 mmol/L (98-107); Estimated GFR 53.35 (mL/min/1.73m2); Glucose 118 mg/dL (74-106); Potassium 3.9 mmol/L (3.5-5.1); Sodium 143 mmol/L (136-145)
[2020-12-24 22:30] LABS: ALT 106 U/L (14-59); AST 62 U/L (15-37); Alkaline Phosphatase 139 U/L (46-116); Bilirubin, Total 0.6 mg/dL (0.2-1.0); NT-proBNP 122 pg/mL (<300); Total Protein 6.8 g/dL (6.4-8.2)
== END 2020-12-24 16:51 | disposition home or self-care (01) ==
LOC: NCHCN 16:50
PROVIDERS: PCP Family Medicine; Visit Provider Family Medicine
DX: I50.32 Chronic diastolic (congestive) heart failure (principal); E11.9 Type 2 diabetes mellitus without complications; I48.0 Paroxysmal atrial fibrillation; R14.0 Abdominal distension (gaseous); R60.9 Edema, unspecified; I10 Essential (primary) hypertension; I25.10 Atherosclerotic heart disease of native coronary artery without angina pectoris
CPT/HCPCS: 80053; 85027; 83036; 83880

== ENCOUNTER 2021-05-25 13:46 | Emergency (ER) | payer MEDICARE, SELFPAY ==
[2021-05-25 13:50] VITALS: BP 172/61; PULSE 80; RESP 18; TEMP 36.9; O2SAT 98
--- NOTE | 2021-05-25 14:45 | DI.CT_ITS ---
Exam(s) CT THORACIC LUMBAR SPINE WO EXAM: CT THORACIC LUMBAR SPINE WO CLINICAL HISTORY: Increased Pain. TECHNIQUE: Imaging Protocol: Axial computed tomography images with coronal and sagittal reformatted images were created and reviewed. CONTRAST MATERIAL: Intravenous: None COMPARISON: CT CT THORACIC LUMBAR SPINE WO from 07/27/2020 FINDINGS: THORACIC SPINAL COLUMN: There are no fractures evident. No listhesis. No scoliosis. No obvious disc herniations. No central spinal canal stenosis. No obvious foraminal stenosis. No f acet malalignment. LUMBOSACRAL SPINAL COLUMN: There is a Schmorl's node invagination superior endplate of L2. No true compression fractures nor li sthesis. Advanced disc space narrowing and vacuum phenomenon within the disc space is evident at L4- 5 level. There is mild-moderate central spinal canal stenosis at L3-4 level due to broad annular bul ging and short AP dimensions the pedicles and some ligamentum flavum hypertrophy. Mild facet joint d egenerative changes. At L4-5 level there is also central spinal canal stenosis. Due to broad annula r bulging short AP dimensions pedicles facet arthropathy. L5-S1 level exhibits normal central canal dimensions. IMPRESSION: As above. Recommend follow-up MRI for added sensitivity and specificity RADIATION DOSE DELIVERED: 1,118.01mGy.cm Total DLP DATA REPOSITORY: All CT scans at this facility are submitted to the National Radiology Data Registry (NRDR) Dose Index Registry (DIR) with the [employer] ([employer]). RADIATION OPTIMIZATION: All CT scans at this facility use at least one of these dose optimization te chniques: automated exposure control; mA and/or kV adjustment per patient size (includes targeted exa ms where dose is matched to clinical indication); or iterative reconstruction.
--- NOTE | 2021-05-25 14:45 | DI.CT_ITS ---
Exam(s) CT CERVICAL SPINE WO EXAM: CT CERVICAL SPINE WO CLINICAL HISTORY: Pain HX DJD. TECHNIQUE: Imaging Protocol: Axial computed tomography images with coronal and sagittal reformatted images were created and reviewed COMPARISON: No exams were available for comparison FINDINGS: CERVICAL SPINE: There is no evidence of fracture nor listhesis. No significant prevertebral soft tissue swelling. Suggestion of disc protrusions, difficult to assess accurately on CT scan when compared to MRI. Ther e is disc space narrowing at C 5-6 and C6-7 levels. There is no significant facet joint malalignment. No significant osseous lesions evident. There are nodules in the thyroid gland noted. IMPRESSION: No evidence of cervical spine fracture, malalignment, nor acute compromise of the cervical spinal can al. Degenerative disc disease. There appears to be a possible significant disc herniation at C6-7 level. This difficult to assess on CT scan recommend follow-up MRI for added sensitivity and specificity RADIATION DOSE DELIVERED: 534.32mGy.cm Total DLP DATA REPOSITORY: All CT scans at this facility are submitted to the National Radiology Data Registry (NRDR) Dose Index Registry (DIR) with the [employer] ([employer]). RADIATION OPTIMIZATION: All CT scans at this facility use at least one of these dose optimization te chniques: automated exposure control; mA and/or kV adjustment per patient size (includes targeted exa ms where dose is matched to clinical indication); or iterative reconstruction.
--- NOTE | 2021-05-25 14:46 | ED.GENADUL_ITS ---
Discharge Plan Disposition Patient Disposition: HOME Condition: Stable Discharge Details Clinical Impression: Cervical disc herniation, Spinal stenosis Primary Care Provider: Regis Muller ED Provider: Sroaya Salomon Home Meds and New Rx's Prescriptions: Continued ferrous gluconate 324 mg (37.5 mg iron) tablet 324 mg PO DAILY RF: 0 amiodarone [Pacerone] 200 mg tablet 200 mg PO BID RF: 0 Lantus U-100 Insulin 100 UNITS/ML solution 25 unit Sub-Q BID RF: 0 Humalog U-100 Insulin 100 UNIT/ML cartridge 15 unit Sub-Q TID RF: 0 ascorbic acid (vitamin C) [Vitamin C] 1,000 mg Tablet 1,000 mg PO DAILY RF: 0 Multi For Her 18 mg iron-600 mcg-40 mcg Capsule 1 tab-cap PO DAILY RF: 0 pantoprazole [Protonix] 40 mg Tablet,Delayed Release (Dr/Ec) 40 mg PO BID RF: 0 rosuvastatin 20 mg Tablet 20 mg PO HS RF: 0 clopidogrel [Plavix] 75 mg tablet 75 mg PO DAILY RF: 0 vitamin B complex [B Complex-Vitamin B12] 1 EACH tablet 1 ea PO DAILY RF: 0 cholecalciferol (vitamin D3) [Vitamin D3] 1,000 UNIT capsule 1,000 unit PO DAILY RF: 0 losartan 100 MG tablet 100 mg PO HS RF: 0 Discharge Instructions Instructions: Back Pain (ED) Additional Instructions: Your CT scan shows disc herniation and stenosis of your spine. Please call to schedule your ordered MRI as soon as possible. Please follow up with primary care after your MRI to discuss further care. If you develop increased pain, fevers/chills, weakness, sensation changes, difficulty with urination or bowel movements, please seek care urgently once again. May use Tylenol or topical patches to help with discomfort. To schedule MRI please call [phone]. Referrals: Regis Muller MD [Primary Care Provider] - Discharge Data Discharge Date/Time-TO BE ENTERED AT DEPARTURE: 05/25/21 17:44 Medical Decision Making <Clarisse Keenan - Last Filed: 05/27/21 00:36> 80-year-old female presents to the ER chief complaint of upper thoracic midthoracic midline spine tenderness which has been getting worse over the 5 days. Patient states that she has been going to physical therapy the physical therapist sent her here for further evaluation. She does have a history of arthritis and back problems and does have an MRI ordered from her PCP. She reports that she did not schedule that. She denies any loss of bowel or bladder control she does report some increased urinary frequency during the night. She denies any saddle anesthesia. She denies any numbness or tingling in her bilateral lower extremities. She has a past medical history of aortic stenosis cardiovascular disease, high blood pressure, diabetes and atrial fibrillation. 1456: Contact made with radiology diagnostic imaging department. They do not have MRI availability today. They did try to call the patient to schedule the outpatient MRI on the and with no answer. An MRI of patient T and L- spine is ordered from PCP. Last CT was done July 2020. We will order a CT CT and L-spine on this patient. Urinalysis ordered. Care is to be handed off to oncoming provider TR Dubois pending CT results. Patient is alert and oriented hemodynamically stable at time of signout. No concern for cauda equina at this time. This text was generated using [employer] dictation system, please disregard any oddities of phrase or misspellings. <TR Lin - Last Filed: 05/27/21 13:40> Care transition to myself from Suyapa Thornton NP. Please see her initial note medical history, presentation and exam. In brief, patient is a pleasant 80-year-old female with chronic back pain. She has. been ordered for outpatient MRI for evaluation. [facility] radiology department ahs contacted her to schedule but she has not yet called back. She has not had any recent trauma. She was found to have no acute barber ein her pain, no neurological deficit. At the time I assumed care, CT scan pending. Post void residual 50cc. CERVICAL SPINE: There is no evidence of fracture nor listhesis. No significant prevertebral soft tissue swelling. Suggestion of disc protrusions, difficult to assess accurately on CT scan when compared to MRI. There is disc space narrowing at C 5-6 and C6-7 levels. There is no significant facet joint malalignment. No significant osseous lesions evident. There are nodules in the thyroid gland noted. IMPRESSION: No evidence of cervical spine fracture, malalignment, nor acute compromise of the cervical spinal canal. Degenerative disc disease. There appears to be a possible significant disc herniation at C6-7 level. This difficult to assess on CT scan recommend follow- up MRI for added sensitivity and specificity FINDINGS: THORACIC SPINAL COLUMN: There are no fractures evident. No listhesis. No scoliosis. No obvious disc herniations. No central spinal canal stenosis. No obvious foraminal stenosis. No facet malalignment. LUMBOSACRAL SPINAL COLUMN: There is a Schmorl's node invagination superior endplate of L2. No true compression fractures nor listhesis. Advanced disc space narrowing and vacuum phenomenon within the disc space is evident at L4-5 level. There is mild- moderate central spinal canal stenosis at L3-4 level due to broad annular bulging and short AP dimensions the pedicles and some ligamentum flavum hypertrophy. Mild facet joint degenerative changes. At L4-5 level there is also central spinal canal stenosis. Due to broad annular bulging short AP dimensions pedicles facet arthropathy. L5-S1 level exhibits normal central canal dimensions. IMPRESSION: As above. Recommend follow-up MRI for added sensitivity and specificity I discussed iwth the patient. It is too late for her to have MRI today. She has no neurolgoical deficit or acute change in her pain. She is in agreement to call to schedule MRI as soon as possible. Strict return precautiosn discussed. Will give patch as these have worked well for her historically. Pain management discussed. All of her questions and concerns were addressed, she is in agreement with this plan. HPI <Clarissejusto Keenan - Last Filed: 05/27/21 00:36> General Mode of arrival: ambulatory . Date/Time Provider Initiated Documentation: 05/25/21 14:37 . Limitations to Documentation: no limitations . Information obtained by: patient, RN notes reviewed and old records reviewed . HPI Narrative: 80-year-old female presents to the ER chief complaint of upper thoracic midthoracic midline spine tenderness which has been getting worse over the 5 days. Patient states that she has been going to physical therapy the physical therapist sent her here for further evaluation. She does have a history of arthritis and back problems and does have an MRI ordered from her PCP. She reports that she did not schedule that. She denies any loss of bowel or bladder control she does report some increased urinary frequency during the night. She denies any saddle anesthesia. She denies any numbness or tingling in her bilateral lower extremities. She has a past medical history of aortic stenosis cardiovascular disease, high blood pressure, diabetes and atrial fibrillation. Related Data Home Medications Medication Instructions Recorded Confirmed Humalog U-100 Insulin 15 unit SUB-Q TID 11/28/15 07/27/20 Lantus U-100 Insulin 25 unit SUB-Q BID 11/28/15 07/27/20 cholecalciferol (vitamin D3) 1,000 unit PO DAILY 01/30/18 07/27/20 [Vitamin D3] losartan 100 mg PO HS 01/30/18 07/13/20 vitamin B complex [B 1 ea PO DAILY 01/30/18 07/27/20 Complex-Vitamin B12] Multi For Her 1 tab-cap PO DAILY 04/14/20 07/27/20 ascorbic acid (vitamin C) [Vitamin 1,000 mg PO DAILY 04/14/20 07/27/20 C] pantoprazole [Protonix] 40 mg PO BID 06/10/20 07/27/20 rosuvastatin 20 mg PO HS 06/10/20 07/27/20 amiodarone 200 mg tablet 200 mg PO BID 11/05/20 clopidogrel 75 mg tablet 75 mg PO DAILY tab 11/05/20 ferrous gluconate 324 mg (37.5 mg 324 mg PO DAILY 11/05/20 iron) tablet Allergies Allergy/AdvReac Type Severity Reaction Status Date / Time codeine AdvReac Mild Verified 11/05/20 11:14 diltiazem AdvReac Mild Verified 11/05/20 11:14 epinephrine AdvReac Mild Verified 11/05/20 11:14 lisinopril AdvReac Mild cough Verified 11/05/20 11:14 pollen extracts AdvReac Verified 11/05/20 11:14 General Stated Complaint: Nk/Back Pain LACEY: 3 [facility] <Clarisse Keenan - Last Filed: 05/27/21 00:36> Medical History (Updated 05/25/21 @ 17:35 by TR Lin) Aortic stenosis Atherosclerotic cardiovascular disease BP (high blood pressure) Closed fracture of left distal fibula (03/31/19) Diabetes mellitus Paroxysmal atrial fibrillation Surgical History (Updated 11/05/20 @ 11:54 by Brigitte Galindo MD) History of cataract surgery History of hysterectomy S/P TAVR (transcatheter aortic valve replacement) Social History (Updated 11/05/20 @ 11:25 by Eli Hernandez RN) Smoking/Tobacco Use Status: Never Smoking risk assessment performed?: Yes Alcohol Intake: never Drug use: Never Substance use type: does not use What type of physical activity do you participate in: additional Details: PT to start Do you feel safe at home: Yes Do you feel safe in your relationship?: Yes Exam <Clarisse Keenan - Last Filed: 05/27/21 00:36> Narrative Exam Narrative: Constitutional: Alert and oriented x3. Appears stated age. Normal body habitus. Head: Normocephalic, no trauma. Eyes: Pupils PERRLA, Red reflex noted, EOM's intact. Eyelids symmetrical without lesions, discharge, or swelling. ENT: Bilateral TM's WNL, External ear normal to inspection, no mastoid TTP, swelling, or erythema, Nasal turbinates WNL, no nasal discharge. Normal dentition, Posterior pharynx WNL, no exudate. Chest: RRR, Normal S1, S2, distal pulses intact. Resp: Lungs clear to auscultation bilaterally, no wheezes, rales, or rhonchi. Musculoskeletal: Unable to assess gait. 5/5 strength to all four extremities. Tenderness noted to CMT spine. No crepitus, no step-offs. Skin: No suspicious rashes or lesions. Capillary refill less than 2 sec. Neurologic: Cranial nerves II-XII intact. Alert and oriented x 3. Hematologic/Lymphatic: No ecchymosis, no lymphadenopathy. Course <Clarisse Keenan - Last Filed: 05/27/21 00:36> Vital Signs Vital signs: Vital Signs Temperature 36.9 C 05/25/21 13:50 Pulse 80 05/25/21 13:50 Respiratory Rate 18 05/25/21 13:50 Blood Pressure 172/61 H 05/25/21 13:50 Pulse Oximetry 98 05/25/21 13:50 Temperature 36.9 C 05/25/21 13:50 Temperature Source Skin 05/25/21 13:50 Pulse 80 05/25/21 13:50 Respiratory Rate 18 05/25/21 13:50 Respiratory Effort Non-Labored 05/25/21 14:29 Blood Pressure 172/61 H 05/25/21 13:50 Blood Pressure Position Sitting 05/25/21 13:50 Pulse Oximetry 98 05/25/21 13:50 Oxygen Delivery Method Room Air 05/25/21 13:50 Oxygen Flow Rate 0 05/25/21 13:50 Pain Level 4 05/25/21 14:29 Comment tylenol last night 05/25/21 13:50 Sign Out <Clarisse Keenan - Last Filed: 05/27/21 00:36> Sign Out Data: Sign Out Comment: Pending CT thoracic and lumbar spine and urinalysis. Expected disposition discharge. Last updated by Clarisse Keenan at 05/25/21 15:52
[2021-05-25 16:02] LABS: Bilirubin Negative (Negative); Blood Negative (Negative); Clarity Clear (Clear); Glucose Negative (Negative); Ketones Trace mg/dL (Negative); Leukocyte Esterase Negative (Negative); Nitrite Negative (Negative); Specific Gravity >= 1.030 (1.005-1.025); Urobilinogen 0.2 EU/dL (Up TO 0.2); pH 5.5 (5-8)
[2021-05-25 16:19] LABS: Bacteria Negative HPF (Negative); C & S Indicated? No; Casts 0-2 Hyaline LPF (Negative); Crystals Negative HPF (Negative); Epithelial Cells Many HPF (Negative); Mucus Heavy (Negative); RBC Negative HPF (0-2); WBC 0-2 HPF (0-5)
[2021-05-25] MEDS: Lidocaine 5% Patch 1 PATCH TP (17:44)
[2021-05-25 17:45] VITALS: BP 158/68; PULSE 80; RESP 18; TEMP 36.9; O2SAT 98
== END 2021-05-25 17:44 | disposition home or self-care (01) ==
PROVIDERS: Registered Nurse Emergency; Emergency Provider Physician Assistant; PCP Family Medicine
DX: M50.223 Other cervical disc displacement at C6-C7 level (principal); M48.061 Spinal stenosis, lumbar region without neurogenic claudication
CPT/HCPCS: 99284; 72125; 72128; 72131; 81003; 81015

== ENCOUNTER 2021-06-14 01:25 | Outpatient (CLI) | payer MEDICARE, SELFPAY ==
--- NOTE | 2021-06-14 | DI.MRI_ITS ---
Exam(s) MR CERVICAL SPINE WO EXAM: MR CERVICAL SPINE WO CLINICAL HISTORY: CERVICAL DISC DISORDER, M50.83,NECK PAIN TECHNIQUE: Multiplanar multisequence MRI of the cervical spine was performed without intravenous con trast. COMPARISON: No exams were available for comparison FINDINGS: BONES: Vertebral body heights are maintained. There is narrowing of the C5-C6 disc space. Alignment is normal. There are endplate degenerative signal changes at several levels of the cervical spine. CERVICAL CORD: Craniovertebral junction is unremarkable. The cervical cord is normal size and signal intensity. SOFT TISSUES: Unremarkable. C2-3: No disc herniation or bulge is identified. No significant central spinal canal or neural forami nal stenosis. C3-4: There is prominence of the osteophyte disc complex with a central disc herniation. The AP diam eter of the central spinal canal is 8 mm. No right neural foraminal stenosis is seen. There is narr owing of the left neural foramen. C4-5: There is prominence of the osteophyte disc complex effacing the anterior subarachnoid space. T he AP diameter of the central spinal canal is 8 mm. Degenerative changes of the uncovertebral joint causes bilateral neural foraminal narrowing. C5-6: There is prominence of the osteophyte disc complex effacing the anterior subarachnoid space and flattening the spinal cord. There is normal signal in the spinal cord. The AP diameter of the cent ral spinal canal is 8 mm. There are hypertrophic changes of the uncovertebral joints causing bilater al neural foraminal stenosis, left greater than right. C6-7: There is prominence of the osteophyte disc complex with a face mint of the anterior subarachnoi d space. No significant central spinal canal stenosis is present. There are hypertrophic changes of the uncovertebral joints causing [id number] bilateral neural foraminal stenosis, left greater than right. C7-T1: No disc herniation or bulge is identified. No significant central spinal canal or neural pardeep inal stenosis IMPRESSION: Multilevel degenerative changes in the cervical spine causing neural foraminal and central spinal can al stenosis. Please see the above discussion for complete details complete DATA REPOSITORY:
--- NOTE | 2021-06-14 | DI.MRI_ITS ---
Exam(s) MR LUMBAR SPINE WO EXAM: MR LUMBAR SPINE WO CLINICAL HISTORY: LOW BACK PAIN, M54.5. TECHNIQUE: Multiplanar multisequence MRI of the Lumbar spine was performed. COMPARISON: CT CT ABDOMEN PELVIS WO from 04/18/[address] ABDOMEN PELVIS WO from 04/18/2020 FINDINGS: Bones: The last intervertebral disc space is designated the L5/S1 level for the numbering purpose of this examination. The vertebral body heights are well maintained. A Schmorl's node is seen in the superior endplate of L2. Alignment is satisfactory. Degenerative endplate signal changes are seen at multiple levels of the lumbar spine. Cord: The conus tip ends at the L1 level. It is of normal size and signal intensity. T12-L1: No disc herniations or bulges are present. No central spinal canal or neural foraminal stenos is. L1-2: There is a diffuse disc bulge. There are degenerative changes of the facets mild narrowing of the central spinal canal is lobe. There is mild bilateral neural foraminal narrowing. L2-3: There is a diffuse disc bulge. There are hypertrophic changes of the facets. Mild narrowing o f the central spinal canal is results. There is mild narrowing of the neural foramen, left greater t renee right. L3-4: There is a diffuse disc bulge. There are hypertrophic changes of the facets. There is mild na rrowing of the central spinal canal. Mild bilateral neural foraminal stenosis is present. L4-5: There is a diffuse disc bulge. There are hypertrophic changes of the facets. This causes narr owing of the transverse diameter of the central spinal canal resulting and moderately severe central spinal canal stenosis. There is moderate right and mild left neural foraminal stenosis. L5-S1: No disc herniations or bulges are present. There are degenerative changes of the facets. No c entral spinal canal stenosis is present.No significant neural foraminal stenosis. Soft tissues: The visualized SI joints and sacrum are well maintained. The paraspinal soft tissues ar e unremarkable. There is a stable well-circumscribed round subcutaneous nodule in the soft tissues of the back. IMPRESSION: Multilevel degenerative changes in the lumbar spine resulting in central spinal canal neural foramina l stenosis as described above. DATA REPOSITORY:
== END 2021-06-14 01:45 ==
LOC: DI 01:26
PROVIDERS: PCP Family Medicine; Visit Provider Family Medicine
DX: M54.59 Other low back pain (principal); M47.816 Spondylosis without myelopathy or radiculopathy, lumbar region; M48.061 Spinal stenosis, lumbar region without neurogenic claudication
CPT/HCPCS: 72141; 72148

== ENCOUNTER 2021-07-22 09:46 | Inpatient (IN) | payer MEDICARE, SELFPAY ==
[2021-07-22] VITALS (58 sets, daily range): BP systolic 132–198; BP diastolic 49–132; PULSE 74–94; RESP 12–39; TEMP 36.4–37.3; O2SAT 89–97
--- NOTE | 2021-07-22 09:45 | RT.EKG_ITS ---
APPROVED REPORT Exam: Resting ECG Reason for Exam: sob Patient Location: E HR:85 bpm ECG Measurements Heart Rate 85 AXIS NC 159 P 55 QRSd 134 QRS -14 QT 441 T 16 QTc 526 Conclusion Sinus rhythm...normal P axis, V-rate 60- 99 Probable left atrial enlargement...P >50mS, <-0.10mV V1 Right bundle branch block...QRSd>120, terminal axis(90,270)
--- NOTE | 2021-07-22 10:15 | DI.RAD_ITS ---
Exam(s) XR PORTABLE CHEST AP EXAM: XR PORTABLE CHEST AP CLINICAL HISTORY: cough/sob TECHNIQUE: 2D digital imaging was performed. COMPARISON: CR,XR XR CHEST 2V PA LATERAL from 04/14/2020 FINDINGS: Cardiac silhouette size is mildly enlarged. And aortic valve prosthesis is noted. The aorta is calc ified and mildly tortuous. There is mild blunting of both costophrenic angles consistent with tiny e ffusions. There is increased pulmonary vascular prominence and interstitial markings, consistent wit h mild CHF. Degenerative changes are noted in the shoulders and spine. IMPRESSION: Mild CHF. DATA REPOSITORY: RADIATION DOSE DELIVERED:
--- NOTE | 2021-07-22 10:32 | ED.GENADUL_ITS ---
Discharge Plan Disposition Patient Disposition: [facility] INPATIENT Condition: Stable Discharge Details Clinical Impression: Anemia Primary Care Provider: Regis Muller ED Provider: Gilberto Beltre Home Meds and New Rx's Prescriptions: No Action ferrous gluconate 324 mg (37.5 mg iron) tablet 324 mg PO DAILY RF: 0 amiodarone [Pacerone] 200 mg tablet 200 mg PO BID RF: 0 Lantus U-100 Insulin 100 UNITS/ML solution 25 unit Sub-Q BID RF: 0 Humalog U-100 Insulin 100 UNIT/ML cartridge 15 unit Sub-Q TID RF: 0 ascorbic acid (vitamin C) [Vitamin C] 1,000 mg Tablet 1,000 mg PO DAILY RF: 0 Multi For Her 18 mg iron-600 mcg-40 mcg Capsule 1 tab-cap PO DAILY RF: 0 pantoprazole [Protonix] 40 mg Tablet,Delayed Release (Dr/Ec) 40 mg PO BID RF: 0 rosuvastatin 20 mg Tablet 20 mg PO HS RF: 0 clopidogrel [Plavix] 75 mg tablet 75 mg PO DAILY RF: 0 metoprolol succinate 100 mg tablet extended release 24 hr 200 mg PO QHS RF: 0 amitriptyline 10 mg tablet 10 mg PO DIRECTED RF: 0 metronidazole 0.75 % cream 1 applic TOPICAL BID RF: 0 celecoxib 100 mg capsule 100 mg PO BID RF: 0 glipizide 5 mg tablet 5 mg PO DAILY RF: 0 vitamin B complex [B Complex-Vitamin B12] 1 EACH tablet 1 ea PO DAILY RF: 0 cholecalciferol (vitamin D3) [Vitamin D3] 1,000 UNIT capsule 1,000 unit PO DAILY RF: 0 losartan 100 MG tablet 100 mg PO HS RF: 0 Medical Decision Making 80-year-old female with significant past medical history presented to the ER today reporting worsening cough over the past month, mostly dry, and now increasing shortness of breath worse with exertion over the past couple of days. She presents anxious and tachypneic, O2 sat that was 96% on room air. She is afebrile, lungs are diminished bilateral bases. She is fully vaccinated against Covid. Will initiate cardiac work-up including BNP, a in-house rapid Covid as she very well may require admission and is a PUI, obtain IV access and give normal saline at 150 an hour. She does not require any neb treatment at this time. She is not requiring supplemental oxygen to maintain an O2 sat in the mid to high 90s. Laboratory values reveal a white count of 8.63. Hemoglobin 7.4 hematocrit 25.8, platelet count 376. INR 1.1, D-dimer 937. Electrolytes are unremarkable, creatinine of 1.0 with a GFR 53.35. Glucose 231 calcium 8.7 magnesium 1.8, troponin less than 0.05. BNP 566 Chest x-ray reveals pleural effusion, no obvious infiltrate Based upon this initial work-up, less concerning for infectious process. Patient does appear to have baseline anemia but appears worse than usual, I question if this could be causing her symptoms today. Have obtained verbal consent for transfusion, type and screen, and ordered 1 unit of packed red blood cells. Given her D-dimer is 937, will obtain CTA of the chest. Patient reports chronic back pain. With her drop in her H&H, back pain, will extend the CTA down to her abdomen and pelvis to further evaluate for potential dissection. BNP slightly elevated at 566. No evidence of pedal edema. Question if this may be secondary to volume and demand. Given the low H&H, plan is to gently hydrate and slowly transfuse as opposed to immediate diuresis. Covid test is negative. CTA reveals bilateral pleural effusions but no evidence of PE or dissection. Patient with symptomatic anemia, to be given a unit of packed red blood cells. We will discussed the case with our hospitalist team for admission. Dr. Morales is agreeable to admission, he will place admission orders Medical Records Medical records reviewed: Yes I reviewed the patient's medical records. Imaging Data Radiologic Study: Attestation: I personally reviewed and interpreted this imaging study as follows: Imaging: X-Ray Radiologist's impression: EXAM XR PORTABLE CHEST AP CLINICAL HISTORY cough/sob TECHNIQUE 2D digital imaging was performed. COMPARISON [CR,XR XR CHEST 2V PA LATERAL from 04/14/2020] [] FINDINGS Cardiac silhouette size is mildly enlarged. And aortic valve prosthesis is noted. The aorta is calcified and mildly tortuous. There is mild blunting of both costophrenic angles consistent with tiny effusions. There is increased pulmonary vascular prominence and interstitial markings, consistent with mild CHF. Degenerative changes are noted in the shoulders and spine. IMPRESSION [Mild CHF Radiologic Study #2: Attestation: I personally reviewed and interpreted this imaging study as follows: Imaging: CT Scan Radiologist's impression: Exam(s) CT CHEST PE ABD PELVIS W EXAM: CT CHEST PE ABD PELVIS W CLINICAL HISTORY: sob,elevated dimer. TECHNIQUE: Imaging Protocol: Axial CT angiography was performed with multi- slice acquisition and multi-planar and/or 3D reconstructions. CONTRAST MATERIAL: Intravenous: Omnipaque 350 Contrast volume:100 ml COMPARISON: CT CT ABDOMEN PELVIS WO from 04/18/[address] ABDOMEN PELVIS WO from 04/18/2020 CR XR PORTABLE CHEST AP from 07/22/2021 FINDINGS: CHEST: Pulmonary Arteries: No evidence of filling defect to suggest pulmonary emboli. Tracheobronchial tree: Patent where visualized. Mediastinum and Carol: No dominant adenopathy or fluid collection. Pulmonary parenchyma: No consolidation or dominant measurable mass. Suboptimal evaluation due to expiratory changes and mild respiratory motion. Interlobular septal thickening consistent with CHF. Pleura: No pneumothorax. Small bilateral pleural effusions. Heart: The heart is moderately dilated. Coronary artery calcifications and stents are seen. Mitral valve calcifications. Aorta: Thoracic aorta non-dilated. Valve prosthesis. Bones: Degenerative changes. ABDOMEN: Liver: Normal density. No measurable mass. Portal, Superior Mesenteric, and Splenic Veins: Unremarkable. Gallbladder and Biliary Tract: Status post cholecystectomy. No radiodense calculus or dilation. Pancreas: Normal density, no abnormal calcifications or inflammatory process. Spleen: Normal size. Small cyst. Adrenals: No masses seen. Kidneys: Normal size, contour and axis. No radiodense stones or obstructive uropathy. No masses seen. Abdominal Aorta: Abdominal portion non-dilated. Calcification. No aneurysm or dissection. Bowel: Scattered diverticula. No evidence of diverticulitis. No obstruction or bowel wall thickening. Peritoneal Cavity: No ascites, collection or mesenteric inflammatory response. Lymph Nodes: Within normal limits. Bones: Mild compression fracture of L2, stable. Soft Tissues: No change small fatty umbilical hernia. PELVIS: Bladder: Symmetric distention, no gross wall thickening. Reproductive Organs: Status post hysterectomy.. Lymph Nodes: Within normal limits. Bones: Degenerative changes of the hips. IMPRESSION: 1. No evidence of pulmonary embolism. Cardiomegaly, bilateral pleural effusions and increased interstitial markings, consistent with CHF. 2. No acute abdominal or pelvic process. Lab Data Lab results reviewed: Yes I reviewed the patient's lab results. Labs: Laboratory Tests Range/Units 11/07/22/21 07/22/21 10:15 10:15 10:15 WBC (4.4-10.8) 10^3/uL 8.63 RBC (3.93-5.22) 10^6/uL 4.05 Hgb (11.2-15.7) g/dL 7.4 L Hct (36.0-46.0) % 25.8 L MCV (80-95) fL 63.7 L MCH (27.0-33.0) pg 18.3 L MCHC (32.0-36.0) % 28.7 L RDW (11.7-14.6) % 18.3 H Plt Count (130-400) 10^3/uL 376 MPV (8.0-11.0) fL 10.5 Immature Gran % 0.2 Neutrophils % 75.6 Lymphocytes % 11.6 Monocytes % 7.9 Eosinophils % 3.8 Basophils % 0.9 Nucleated RBC % % 0 Absolute Neutrophils (1.2-6.7) 10^3/uL 6.52 Absolute Lymphocytes (1.2-3.4) 10^3/uL 1.00 L Absolute Monocytes (0.1-0.8) 10^3/uL 0.68 Absolute Eosinophils (0.0-0.7) 10^3/uL 0.33 Absolute Basophils (0.0-0.2) 10^3/uL 0.08 RBC Morphology See Below Polychromasia Present Hypochromasia 2+ Poikilocytosis 1+ Anisocytosis 2+ Microcytosis 2+ PT (9.3-11.0) sec 11.5 H INR (0.9-1.1) 1.1 APTT (21.0-27.5) sec 18.1 L D-Dimer (<500) ng/mlFEU 937 H Sodium (136-145) mmol/L 139 Potassium (3.5-5.1) mmol/L 3.5 Chloride (98-107) mmol/L 103 Carbon Dioxide (21.0-32.0) mmol/L 25.7 Anion Gap (3-11) mmol/L 10.3 BUN (7-18) mg/dL 13 Creatinine (0.55-1.02) mg/dL 1.0 Estimated GFR/1.73 m2 (mL/min/1.73m2) 53.35 Glucose (74-106) mg/dL 231 H Calcium (8.5-10.1) mg/dL 8.7 Magnesium (1.8-2.4) mg/dL 1.8 Total Bilirubin (0.2-1.0) mg/dL 1.1 H AST (15-37) U/L 44 H ALT (14-59) U/L 48 Alkaline Phosphatase (46-116) U/L 202 H Troponin I (<0.06) ng/mL < 0.05 NT-Pro-B Natriuret Pep (<300) pg/mL 566 H Total Protein (6.4-8.2) g/dL 6.5 Albumin (3.4-5.0) g/dL 3.1 L COVID-19 Source SARS-CoV-2 (PCR) (Negative) Patient ABO/Rh Antibody Screen Crossmatch Range/Units 07/22/21 07/22/21 11:50 12:15 WBC (4.4-10.8) 10^3/uL RBC (3.93-5.22) 10^6/uL Hgb (11.2-15.7) g/dL Hct (36.0-46.0) % MCV (80-95) fL MCH (27.0-33.0) pg MCHC (32.0-36.0) % RDW (11.7-14.6) % Plt Count (130-400) 10^3/uL MPV (8.0-11.0) fL Immature Gran % Neutrophils % Lymphocytes % Monocytes % Eosinophils % Basophils % Nucleated RBC % % Absolute Neutrophils (1.2-6.7) 10^3/uL Absolute Lymphocytes (1.2-3.4) 10^3/uL Absolute Monocytes (0.1-0.8) 10^3/uL Absolute Eosinophils (0.0-0.7) 10^3/uL Absolute Basophils (0.0-0.2) 10^3/uL RBC Morphology Polychromasia Hypochromasia Poikilocytosis Anisocytosis Microcytosis PT (9.3-11.0) sec INR (0.9-1.1) APTT (21.0-27.5) sec D-Dimer (<500) ng/mlFEU Sodium (136-145) mmol/L Potassium (3.5-5.1) mmol/L Chloride (98-107) mmol/L Carbon Dioxide (21.0-32.0) mmol/L Anion Gap (3-11) mmol/L BUN (7-18) mg/dL Creatinine (0.55-1.02) mg/dL Estimated GFR/1.73 m2 (mL/min/1.73m2) Glucose (74-106) mg/dL Calcium (8.5-10.1) mg/dL Magnesium (1.8-2.4) mg/dL Total Bilirubin (0.2-1.0) mg/dL AST (15-37) U/L ALT (14-59) U/L Alkaline Phosphatase (46-116) U/L Troponin I (<0.06) ng/mL NT-Pro-B Natriuret Pep (<300) pg/mL Total Protein (6.4-8.2) g/dL Albumin (3.4-5.0) g/dL COVID-19 Source Nasal/Nares SARS-CoV-2 (PCR) (Negative) Negative Patient ABO/Rh O Positive Antibody Screen NEGATIVE Crossmatch See Detail ECG Data Attestation: I personally reviewed and interpreted this ECG (s) as follows: Interpretation: Please see official report by Dr. Donis. Sinus rhythm, ventricular rate of 85. Right bundle branch block HPI General Mode of arrival: ambulatory . Date/Time Provider Initiated Documentation: 07/22/21 10:00 . Limitations to Documentation: no limitations . Information obtained by: patient . HPI Narrative: This is an 80-year-old female with a past medical history that includes chronic back pain, proximal atrial fibrillation, transcatheter aortic valve replacement, hypertension, CAD, aortic stenosis, diabetes, takes Plavix daily, presenting to the ER for what she describes as a worsening cough now productive over the past month, increased shortness of breath over the past 24-36 hrs. worse with activity or lying flat. Patient is vaccinated against Covid. She denies headache, fever, neck pain, chest pains, abdominal pain, nausea, vomiting, diarrhea, constipation, dysuria, pain or swelling her legs. Patient states that she noticed swelling in her legs a few days ago but that has resolved completely. She states that her abdomen does feel slightly bloated. She initially denied any bright red blood in her stools or black tarry stools but then later states that maybe she had a bloody bowel movement over the weekend, none now. Denies recent illness or sick contacts Related Data Home Medications Medication Instructions Recorded Confirmed Humalog U-100 Insulin 15 unit SUB-Q TID 11/28/15 07/22/21 Lantus U-100 Insulin 25 unit SUB-Q BID 11/28/15 07/22/21 cholecalciferol (vitamin D3) 1,000 unit PO DAILY 01/30/18 07/22/21 [Vitamin D3] losartan 100 mg PO HS 01/30/18 07/22/21 vitamin B complex [B 1 ea PO DAILY 01/30/18 07/22/21 Complex-Vitamin B12] Multi For Her 1 tab-cap PO DAILY 04/14/20 07/27/20 ascorbic acid (vitamin C) [Vitamin 1,000 mg PO DAILY 04/14/20 07/27/20 C] pantoprazole [Protonix] 40 mg PO BID 06/10/20 07/22/21 rosuvastatin 20 mg PO HS 06/10/20 07/22/21 amiodarone 200 mg tablet 200 mg PO BID 11/05/20 07/22/21 clopidogrel 75 mg tablet 75 mg PO DAILY tab 11/05/20 07/22/21 ferrous gluconate 324 mg (37.5 mg 324 mg PO DAILY 11/05/20 iron) tablet amitriptyline 10 mg PO DIRECTED 07/22/21 07/22/21 celecoxib 100 mg PO BID 07/22/21 07/22/21 glipizide 5 mg PO DAILY 07/22/21 07/22/21 metoprolol succinate 200 mg PO QHS 07/22/21 07/22/21 metronidazole 1 applic TOPICAL BID 07/22/21 07/22/21 Allergies Allergy/AdvReac Type Severity Reaction Status Date / Time codeine AdvReac Mild Verified 07/22/21 10:21 diltiazem AdvReac Mild Verified 07/22/21 10:21 epinephrine AdvReac Mild Verified 07/22/21 10:21 lisinopril AdvReac Mild cough Verified 07/22/21 10:21 pollen extracts AdvReac Verified 07/22/21 10:21 General Stated Complaint: RespSymp LACEY: 3 Review of Systems Constitutional Constitutional: Reports fatigue, Denies fever(s) and Denies headache(s) ENT Ears, Nose, Mouth, and Throat: Denies headache(s) and Denies neck pain Cardiovascular Cardiovascular: Denies chest pain and Reports dyspnea Respiratory Respiratory: Reports cough and Reports dyspnea Gastrointestinal Gastrointestinal: Denies abdominal pain, Denies melena, Reports hematochezia, Denies nausea and Denies vomiting Genitourinary Genitourinary: Denies dysuria Musculoskeletal Musculoskeletal: Reports back pain and Denies neck pain Integumentary/Breasts Skin/Breast: Denies rash Neurologic Neurologic: Denies headache(s) Endocrine Endocrine: Reports fatigue Hematologic/Lymphatic Hematologic/Lymphatic: Reports easy bleeding and Reports easy bruising [facility] Active Problem List Cervical disc herniation (Acute) Spinal stenosis (Acute) Paroxysmal atrial fibrillation (Acute) S/P TAVR (transcatheter aortic valve replacement) (Acute) BP (high blood pressure) (Acute) Atherosclerotic cardiovascular disease (Acute) Aortic stenosis (Chronic) Acute cholecystitis (Acute) Degenerative joint disease of right knee (Chronic) Medical History Closed fracture of left distal fibula (03/31/19) Diabetes mellitus Surgical History History of cataract surgery History of hysterectomy Social History Smoking/Tobacco Use Status: Never Smoking risk assessment performed?: Yes Alcohol Intake: never Drug use: Never Substance use type: does not use What type of physical activity do you participate in: additional Details: PT to start Do you feel safe at home: Yes Do you feel safe in your relationship?: Yes Exam Const General: cooperative, healthy appearing, in distress and anxious Orientation: alert, awake and oriented x3 HENMT Head: normal to inspection, normocephalic and atraumatic Face and sinus: normal facial exam Mouth: moist mucous membranes Eyes General: appearance normal, both eyes and all related structures Conjunctivae: conjunctivae normal Neck Neck: normal visual inspection, full ROM, trachea midline and supple Resp Effort & Inspection: tachypneic and other (Speaks in 3-5 word sentences) Auscultation: diminished lung sounds bilaterally in the lower lung pack Cardio Rate: regular rate Rhythm: regular rhythm GI Inspection: obesity Palpation: soft, not firm, no guarding, no pulsatile masses and nontender Auscultation: normal bowel sounds Rectal Exam - female: normal sphincter tone and heme negative stool Back/Spine/Pelvis Back: no CVA tenderness and back tenderness (Diffuse lumbar disc) Skin General skin exam: no rashes or lesions noted Neuro General: patient alert, patient awake, moves all extremities and no focal motor deficits Cognition: normal cognition Speech: speech normal Gait: normal gait Motor: muscle tone normal throughout Sensory Exam: no sensory deficits noted Extrem General: normal to inspection, full ROM, capillary refill normal, no pedal edema and no calf tenderness Psych Appearance: grossly normal Mental Status: mental status grossly normal Course Vital Signs Vital signs: Vital Signs Temperature 36.6 C 07/22/21 10:02 Pulse 94 H 07/22/21 10:02 Respiratory Rate 22 07/22/21 10:02 Blood Pressure 168/72 H 07/22/21 10:02 Pulse Oximetry 96 07/22/21 10:02 Temperature 36.6 C 07/22/21 10:02 Temperature Source Temporal Artery Scan 07/22/21 10:02 Pulse 94 H 07/22/21 10:02 Respiratory Rate 22 07/22/21 10:02 Respiratory Effort 07/22/21 10:16 Respiratory Depth Normal 07/22/21 10:16 Blood Pressure 168/72 H 07/22/21 10:02 Blood Pressure Position Sitting 07/22/21 10:02 Pulse Oximetry 96 07/22/21 10:02 Oxygen Delivery Method Room Air 07/22/21 10:02 Oxygen Flow Rate 0 07/22/21 10:02 Critical Care Time Critical Care Time Critical Care Time: Yes Total Critical Care Time: 35 Attestation: Upon my evaluation, this patient had a high probability of clinically significant, life-threatening deterioration due to their current medical conditions, which required my direct attention, intervention, and personal management. I have personally provided greater than 30 minutes of critical care time exclusive of the time spend on separately billable procedures. Time includes obtaining a history, examining the patient, pulse oximetry, review of laboratory data, radiology results, discussion with consultants, arranging urgent treatment with development of a management plan, evaluation of patient's response to treatment, and monitoring for potential decompensation. Interventions were performed as documented above.
[2021-07-22 10:52] LABS: Abs Immature Grans 0.02 10^3/uL (0.0-0.06); Absolute Basophil Count 0.08 10^3/uL (0.0-0.2); Absolute Eosinophil Count 0.33 10^3/uL (0.0-0.7); Absolute Monocyte Count 0.68 10^3/uL (0.1-0.8); Absolute Neutrophil Count 6.52 10^3/uL (1.2-6.7); Basophils % 0.9; Eosinophils % 3.8; HCT 25.8 % (36.0-46.0); HGB 7.4 g/dL (11.2-15.7); Immature Grans % 0.2; Lymphocytes % 11.6; MCH 18.3 pg (27.0-33.0); MCHC 28.7 % (32.0-36.0); MCV 63.7 fL (80-95); MPV 10.5 fL (8.0-11.0); Monocytes % 7.9; Neutrophils % 75.6; Nucleated RBC 0 %; Platelet Count 376 10^3/uL (130-400); RBC 4.05 10^6/uL (3.93-5.22); RDW 18.3 % (11.7-14.6); WBC 8.63 10^3/uL (4.4-10.8)
[2021-07-22 11:04] LABS: INR 1.1 (0.9-1.1); Prothrombin Time 11.5 sec (9.3-11.0)
[2021-07-22 11:11] LABS: ALT 48 U/L (14-59); AST 44 U/L (15-37); Albumin 3.1 g/dL (3.4-5.0); Alkaline Phosphatase 202 U/L (46-116); Anion Gap 10.3 mmol/L (3-11); BUN 13 mg/dL (7-18); Bilirubin, Total 1.1 mg/dL (0.2-1.0); CO2 25.7 mmol/L (21.0-32.0); Calcium 8.7 mg/dL (8.5-10.1); Chloride 103 mmol/L (98-107); Estimated GFR 53.35 (mL/min/1.73m2); Glucose 231 mg/dL (74-106); Magnesium 1.8 mg/dL (1.8-2.4); NT-proBNP 566 pg/mL (<300); Potassium 3.5 mmol/L (3.5-5.1); Sodium 139 mmol/L (136-145); Total Protein 6.5 g/dL (6.4-8.2); Troponin I < 0.05 ng/mL (<0.06)
[2021-07-22 11:16] LABS: PTT Activated 18.1 sec (21.0-27.5)
[2021-07-22 11:18] LABS: Anisocytosis 2+; Diff Comment Diff Reviewed; Hypochromasia 2+; Microcytosis 2+; Polychromasia Present
[2021-07-22 11:19] LABS: Poikilocytes 1+
[2021-07-22 11:23] LABS: D-Dimer 937 ng/mlFEU (<500)
--- NOTE | 2021-07-22 11:30 | DI.CT_ITS ---
Exam(s) CT CHEST PE ABD PELVIS W EXAM: CT CHEST PE ABD PELVIS W CLINICAL HISTORY: sob,elevated dimer. TECHNIQUE: Imaging Protocol: Axial CT angiography was performed with multi-slice acquisition and mu lti-planar and/or 3D reconstructions. CONTRAST MATERIAL: Intravenous: Omnipaque 350 Contrast volume:100 ml COMPARISON: CT CT ABDOMEN PELVIS WO from 04/18/[address] ABDOMEN PELVIS WO from 04/18/2020 CR XR PORTABLE CHEST AP from 07/22/2021 FINDINGS: CHEST: Pulmonary Arteries: No evidence of filling defect to suggest pulmonary emboli. Tracheobronchial tree: Patent where visualized. Mediastinum and Carol: No dominant adenopathy or fluid collection. Pulmonary parenchyma: No consolidation or dominant measurable mass. Suboptimal evaluation due to expi ratory changes and mild respiratory motion. Interlobular septal thickening consistent with CHF. Pleura: No pneumothorax. Small bilateral pleural effusions. Heart: The heart is moderately dilated. Coronary artery calcifications and stents are seen. Mitral valve calcifications. Aorta: Thoracic aorta non-dilated. Valve prosthesis. Bones: Degenerative changes. ABDOMEN: Liver: Normal density. No measurable mass. Portal, Superior Mesenteric, and Splenic Veins: Unremarkable. Gallbladder and Biliary Tract: Status post cholecystectomy. No radiodense calculus or dilation. Pancreas: Normal density, no abnormal calcifications or inflammatory process. Spleen: Normal size. Small cyst. Adrenals: No masses seen. Kidneys: Normal size, contour and axis. No radiodense stones or obstructive uropathy. No masses seen. Abdominal Aorta: Abdominal portion non-dilated. Calcification. No aneurysm or dissection. Bowel: Scattered diverticula. No evidence of diverticulitis. No obstruction or bowel wall thickenin g. Peritoneal Cavity: No ascites, collection or mesenteric inflammatory response. Lymph Nodes: Within normal limits. Bones: Mild compression fracture of L2, stable. Soft Tissues: No change small fatty umbilical hernia. PELVIS: Bladder: Symmetric distention, no gross wall thickening. Reproductive Organs: Status post hysterectomy.. Lymph Nodes: Within normal limits. Bones: Degenerative changes of the hips. IMPRESSION: 1. No evidence of pulmonary embolism. Cardiomegaly, bilateral pleural effusions and increased interst itial markings, consistent with CHF. 2. No acute abdominal or pelvic process. RADIATION DOSE DELIVERED: 1,426.08mGy.cm Total DLP DATA REPOSITORY: All CT scans at this facility are submitted to the National Radiology Data Registry (NRDR) Dose Index Registry (DIR) with the [employer] ([employer]). RADIATION OPTIMIZATION: All CT scans at this facility use at least one of these dose optimization te chniques: automated exposure control; mA and/or kV adjustment per patient size (includes targeted exa ms where dose is matched to clinical indication); or iterative reconstruction.
[2021-07-22 11:53] LABS: Source Nasal/Nares
[2021-07-22] MEDS: Omnipaque 350 MG/ML 100 ML BTL IJ ×2 (12:09→13:35)
[2021-07-22] MEDS: Normal Saline - Diluent 50 ML VIAL IV ×2 (12:09→13:36)
[2021-07-22] MEDS: Normal Saline Flush 10 ML SYR IVP (12:11)
[2021-07-22 13:12] LABS: COVID-19 PCR Negative (Negative)
--- NOTE | 2021-07-22 14:37 | W.PM.HP.N ---
Date of service: 07/22/21 Time of Service: 14:38 Assessment and Plan Assessment and plan (1) Anemia: Status: Acute Assessment and plan: 1 units PRBC initiated in the ED stool negative for OB add iron panel had upper and lower endoscopy at [facility] for previous episode of anemia for work up pre-TAVR this past summer. reports grossly bloody stool on last Sunday, no further bleeding since. continue bid PPI surgical consultation, ? capsule endoscopy. (2) Paroxysmal atrial fibrillation: Status: Chronic Assessment and plan: rate controlled, continue amiodarone and metoprolol (3) S/P TAVR (transcatheter aortic valve replacement): Status: Chronic Assessment and plan: stable (4) Diabetes mellitus: Assessment and plan: A1C november 2020 10.1, add on to labs to recheck diabetic diet, continue home lantus at reduced dosing from 25 to 15 units BID while hospitalized, adjust as needed. sliding scale coverage as needed. continue glipizide discussed with Dr Morales History of Present Illness History of Present Illness Chief Complaint: shortness of breath Narrative: presented to the ED with shortness of breath and dizziness that started worsening yesterday. no chest pain or fever. reports bloody stool last sunday, large amount, none since. had anemia work up this past summer for upper and lower endoscopy for TAVR procedure, states no source found. her work up in the ED included PE rule out and no other findings on CT to explain symptoms, labs show hemoglobin 7.4, she will be referred to obs for blood transfusion, admitted to symptomatic anemia. 2 troponins negative. Review of Systems Constitutional Constitutional: Reports fatigue, Denies fever(s) and Reports lethargy Eyes Eyes: Denies change in vision ENT Ears, Nose, Mouth, and Throat: Denies vertigo and Reports dizziness Cardiovascular Cardiovascular: Denies chest pain, Denies syncope, Reports dyspnea and Reports dyspnea on exertion Respiratory Respiratory: Denies cough, Reports dyspnea and Reports dyspnea on exertion Gastrointestinal Gastrointestinal: Denies abdominal pain and Reports hematochezia (last sunday, no further bleeding since) Genitourinary Genitourinary: Denies urinary urgency Musculoskeletal Musculoskeletal: Denies back pain Integumentary/Breasts Skin/Breast: Denies rash Neurologic Neurologic: Denies confusion, Denies vertigo, Reports dizziness and Denies syncope Psychiatric Psychiatric: Denies confusion Endocrine Endocrine: Reports fatigue Hematologic/Lymphatic Hematologic/Lymphatic: Denies easy bleeding and Denies easy bruising PFS Active Problem List Cervical disc herniation (Acute) Spinal stenosis (Acute) Paroxysmal atrial fibrillation (Acute) S/P TAVR (transcatheter aortic valve replacement) (Acute) BP (high blood pressure) (Acute) Atherosclerotic cardiovascular disease (Acute) Aortic stenosis (Chronic) Acute cholecystitis (Acute) Degenerative joint disease of right knee (Chronic) Medical History Closed fracture of left distal fibula (03/31/19) Diabetes mellitus Surgical History History of cataract surgery History of hysterectomy Social History Smoking/Tobacco Use Status: Never Smoking risk assessment performed?: Yes Alcohol Intake: never Drug use: Never Substance use type: does not use What type of physical activity do you participate in: additional Details: PT to start Do you feel safe at home: Yes Do you feel safe in your relationship?: Yes Meds Allergies and Home Medications Allergies Allergy/AdvReac Type Severity Reaction Status Date / Time codeine AdvReac Mild Verified 07/22/21 10:21 diltiazem AdvReac Mild Verified 07/22/21 10:21 epinephrine AdvReac Mild Verified 07/22/21 10:21 lisinopril AdvReac Mild cough Verified 07/22/21 10:21 pollen extracts AdvReac Verified 07/22/21 10:21 Home Medications Medication Instructions Recorded Confirmed Type Humalog U-100 Insulin 15 unit SUB-Q TID 11/28/15 07/22/21 History Lantus U-100 Insulin 25 unit SUB-Q BID 11/28/15 07/22/21 History cholecalciferol (vitamin D3) 1,000 unit PO DAILY 01/30/18 07/22/21 History [Vitamin D3] losartan 100 mg PO HS 01/30/18 07/22/21 History vitamin B complex [B 1 ea PO DAILY 01/30/18 07/22/21 History Complex-Vitamin B12] Multi For Her 1 tab-cap PO DAILY 04/14/20 07/27/20 History ascorbic acid (vitamin C) [Vitamin 1,000 mg PO DAILY 04/14/20 07/27/20 History C] pantoprazole [Protonix] 40 mg PO BID 06/10/20 07/22/21 History rosuvastatin 20 mg PO HS 06/10/20 07/22/21 History amiodarone 200 mg tablet 200 mg PO BID 11/05/20 07/22/21 History clopidogrel 75 mg tablet 75 mg PO DAILY tab 11/05/20 07/22/21 History ferrous gluconate 324 mg (37.5 mg 324 mg PO DAILY 11/05/20 History iron) tablet amitriptyline 10 mg PO DIRECTED 07/22/21 07/22/21 History celecoxib 100 mg PO BID 07/22/21 07/22/21 History glipizide 5 mg PO DAILY 07/22/21 07/22/21 History metoprolol succinate 200 mg PO QHS 07/22/21 07/22/21 History metronidazole 1 applic TOPICAL BID 07/22/21 07/22/21 History Exam Const General: cooperative, healthy appearing (younger than stated age), comfortable, no acute distress and well groomed Nutritional Appearance: overweight Orientation: alert, awake and oriented x3 [facility] Head: normal to inspection, normocephalic and atraumatic Mouth: oral mucosae normal Resp Effort & Inspection: normal respiratory effort Auscultation: clear to auscultation bilaterally Cardio Rate: regular rate Rhythm: regular rhythm GI Inspection: normal to inspection Palpation: soft Auscultation: normal bowel sounds Skin General skin exam: no rashes or lesions noted Neuro General: patient alert, patient awake, patient oriented x3 and no focal motor deficits Cranial Nerves: CN's II-XI intact bilaterally Extrem General: normal to inspection, full ROM and no pedal edema Results Labs Result diagrams: 07/22/21 10:15 07/22/21 10:15 Labs: Laboratory Results - last 24 hr 07/22/21 07/22/21 07/22/21 10:15 10:15 10:15 WBC 8.63 RBC 4.05 Hgb 7.4 L Hct 25.8 L MCV 63.7 L MCH 18.3 L MCHC 28.7 L RDW 18.3 H Plt Count 376 MPV 10.5 Immature Gran % 0.2 Neutrophils % 75.6 Lymphocytes % 11.6 Monocytes % 7.9 Eosinophils % 3.8 Basophils % 0.9 Nucleated RBC % 0 Absolute Neutrophils 6.52 Absolute Lymphocytes 1.00 L Absolute Monocytes 0.68 Absolute Eosinophils 0.33 Absolute Basophils 0.08 RBC Morphology See Below Polychromasia Present Hypochromasia 2+ Poikilocytosis 1+ Anisocytosis 2+ Microcytosis 2+ PT 11.5 H INR 1.1 APTT 18.1 L D-Dimer 937 H Sodium 139 Potassium 3.5 Chloride 103 Carbon Dioxide 25.7 Anion Gap 10.3 BUN 13 Creatinine 1.0 Estimated GFR/1.73 m2 53.35 Glucose 231 H Calcium 8.7 Magnesium 1.8 Total Bilirubin 1.1 H AST 44 H ALT 48 Alkaline Phosphatase 202 H Troponin I < 0.05 NT-Pro-B Natriuret Pep 566 H Total Protein 6.5 Albumin 3.1 L COVID-19 Source SARS-CoV-2 (PCR) Patient ABO/Rh Antibody Screen Crossmatch 07/22/21 07/22/21 11:50 12:15 WBC RBC Hgb Hct MCV MCH MCHC RDW Plt Count MPV Immature Gran % Neutrophils % Lymphocytes % Monocytes % Eosinophils % Basophils % Nucleated RBC % Absolute Neutrophils Absolute Lymphocytes Absolute Monocytes Absolute Eosinophils Absolute Basophils RBC Morphology Polychromasia Hypochromasia Poikilocytosis Anisocytosis Microcytosis PT INR APTT D-Dimer Sodium Potassium Chloride Carbon Dioxide Anion Gap BUN Creatinine Estimated GFR/1.73 m2 Glucose Calcium Magnesium Total Bilirubin AST ALT Alkaline Phosphatase Troponin I NT-Pro-B Natriuret Pep Total Protein Albumin COVID-19 Source Nasal/Nares SARS-CoV-2 (PCR) Negative Patient ABO/Rh O Positive Antibody Screen NEGATIVE Crossmatch See Detail Last Vital Signs Temp 36.6 C 07/22/21 10:02 Pulse 79 07/22/21 14:02 Resp 12 07/22/21 13:30 BP 167/55 H 07/22/21 14:02 Pulse Ox 92 07/22/21 14:02
[2021-07-22 14:45] LABS: Troponin I < 0.05 ng/mL (<0.06)
[2021-07-22] MEDS: Insulin Aspart 300 UNITS/3 ML PEN SC ×2 (16:56→21:16)
[2021-07-22] MEDS: Amiodarone 200 MG TAB PO (19:36)
[2021-07-22] MEDS: Pantoprazole 40 MG TABCR PO (19:36)
[2021-07-22] MEDS: Celecoxib 100 MG CAP PO (19:42)
[2021-07-22] MEDS: Insulin Glargine 300 UNITS/3 ML PEN 15 UNITS SC (19:42)
[2021-07-22] MEDS: Rosuvastatin 10 MG TAB 20 MG PO (21:15)
[2021-07-22] MEDS: Amitriptyline 10 MG TAB 5 MG PO (21:15)
[2021-07-22] MEDS: Metoprolol CR 100 MG TABCR 200 MG PO (21:15)
[2021-07-22] MEDS: Losartan 50 MG TAB 100 MG PO (21:16)
[2021-07-23 01:48] VITALS: BP 176/84; PULSE 66; RESP 18; TEMP 36.3; O2SAT 92
[2021-07-23] MEDS: Acetaminophen 325 MG TAB 650 MG PO (02:46)
[2021-07-23 03:03] VITALS: BP 148/68
[2021-07-23 06:59] VITALS: PULSE 77
[2021-07-23 07:36] VITALS: BP 164/69; PULSE 58; RESP 14; TEMP 36.6; O2SAT 91
--- NOTE | 2021-07-23 08:05 | PDOC.CMIN ---
- If Service Date Differs Date of service: 07/23/21 Time of Service: 08:05 Care Management Initial Assess REASON FOR HOSPITALIZATION:: Symptomatic Anemia. PAST MEDICAL HISTORY/PAST SURGICAL HISTORY:: Active Problem List/Medical History: Cervical disc herniation (Acute),. Spinal stenosis (Acute), Paroxysmal atrial fibrillation (Acute), S/P TAVR (transcatheter aortic valve replacement) (Acute), BP (high blood pressure) (Acute), Atherosclerotic cardiovascular disease (Acute), Aortic stenosis (Chronic), Acute cholecystitis (Acute), Degenerative joint disease of right knee (Chronic), Closed fracture of left distal fibula (03/31/19), and Diabetes mellitus. Surgical History: History of cataract surgery and History of hysterectomy. PREVIOUS FUNCTIONAL STATUS/SOCIAL/FAMILY SUPPORTS:: Shannan lives alone in an apartment in a building she owns in [facility]. 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 She has two sons and a daughter. Her son, Darwin, lives locally and is supportive of her, as is her granddaughter, Lise. Melina drives and is independent with her ADLs at baseline. CURRENT FUNCTIONAL STATUS:: Melina is lying in bed watching television when comes to meet with her. She shares she has not felt well in a while and this has prevented her from engaging in some of the activities she enjoys. She states she keeps busy managing her apartment building which has 4 units. ADVANCE DIRECTIVES:: None on file; provides Melina with an Advance Directives for completion at a later time. Has patient been provided with info about the portal/API?: Yes Did the patient sign up for the portal?: No CODE STATUS:: Full Code INSURANCE COVERAGE / FINANCIAL ISSUES:: Medicare. CURRENT HOME/COMMUNITY SERVICES/EQUIPMENT:: No home/community services. Melina has a FWW and grab bars in her shower. PRIMARY CARE PHYSICIAN:: Regis Muller MD ([facility]). POTENTIAL DISCHARGE NEEDS:: Follow up appointment with her PCP. PATIENT/FAMILY EDUCATION NEEDS:: Review discharge instructions including limitations and follow up plan of care; discuss Ask Me Three and self management. ANTICIPATED BARRIERS TO DISCHARGE:: No anticipated barriers to discharge at this time. TRANSPORTATION:: Via private vehicle with family. PLAN:: Shannan will be discharged home with no new services when medically cleared by provider. She will follow up with her PCP and discharge plan of care as directed. Her granddaughter, Lise, will drive her home via private vehicle when ready. CM will continue to follow.
[2021-07-23 08:08] LABS: Abs Immature Grans 0.02 10^3/uL (0.0-0.06); Absolute Basophil Count 0.08 10^3/uL (0.0-0.2); Absolute Eosinophil Count 0.51 10^3/uL (0.0-0.7); Absolute Lymphocyte Count 1.43 10^3/uL (1.2-3.4); Absolute Neutrophil Count 6.98 10^3/uL (1.2-6.7); Basophils % 0.8; Eosinophils % 5.2; HCT 28.9 % (36.0-46.0); HGB 8.3 g/dL (11.2-15.7); Immature Grans % 0.2; Lymphocytes % 14.6; MCH 18.7 pg (27.0-33.0); MCHC 28.7 % (32.0-36.0); MCV 64.9 fL (80-95); MPV 10.6 fL (8.0-11.0); Monocytes % 8.1; Neutrophils % 71.1; Nucleated RBC 0 %; Platelet Count 360 10^3/uL (130-400); RBC 4.45 10^6/uL (3.93-5.22); RDW 21.1 % (11.7-14.6); RDW-SD 47.3 fL; Reticulocyte 1.1 % (0.5-2.4); WBC 9.82 10^3/uL (4.4-10.8)
[2021-07-23] MEDS: Insulin Glargine 300 UNITS/3 ML PEN 15 UNITS SC (08:16)
[2021-07-23] MEDS: Insulin Aspart 300 UNITS/3 ML PEN SC ×2 (08:16→11:52)
[2021-07-23] MEDS: Ferrous Gluconate 324 MG TAB PO (08:17)
[2021-07-23] MEDS: Cholecalciferol (Vitamin D3) 1,000 UNIT TAB 1000 UNITS PO (08:17)
[2021-07-23] MEDS: Ascorbic Acid 500 MG TAB 1000 MG PO (08:17)
[2021-07-23] MEDS: Vitamins B Comp w/C TAB 1 TAB PO (08:17)
[2021-07-23] MEDS: Clopidogrel 75 MG TAB PO (08:17)
[2021-07-23] MEDS: Multivitamin w/Minerals TAB 1 TAB PO (08:17)
[2021-07-23] MEDS: Pantoprazole 40 MG TABCR PO (08:17)
[2021-07-23] MEDS: Amiodarone 200 MG TAB PO (08:17)
[2021-07-23] MEDS: Celecoxib 100 MG CAP PO (08:17)
[2021-07-23] MEDS: glipiZIDE 5 MG TAB PO (08:17)
[2021-07-23] MEDS: Lidocaine 5% Patch 1 PATCH TP (08:18)
[2021-07-23 08:37] LABS: BUN 13 mg/dL (7-18); Calcium 8.4 mg/dL (8.5-10.1); Chloride 103 mmol/L (98-107); Estimated GFR 53.35 (mL/min/1.73m2); Ferritin 18 ng/mL (8-252); Glucose 139 mg/dL (74-106); Potassium 3.7 mmol/L (3.5-5.1); Sodium 139 mmol/L (136-145); TSH (W/Ref FT4) 2.09 uIU/mL (0.36-3.74)
[2021-07-23 08:39] LABS: Iron 19 ug/dL (50-170); Total Iron Binding Capacity 428 ug/dL (250-450); Transferrin Sat 4 % (15-50)
[2021-07-23 08:46] LABS: Hemoglobin A1C 7.8 % (<5.7)
[2021-07-23 08:53] LABS: Diff Comment RBC Morph Reviewed
[2021-07-23 08:54] LABS: Anisocytosis 2+; Basophilic Stippling Present; Hypochromasia 2+; Microcytosis 2+; Poikilocytes 1+; Polychromasia Present
[2021-07-23 08:55] LABS: Troponin I < 0.05 ng/mL (<0.06)
[2021-07-23 09:06] LABS: Folate 10.8 ng/mL (8.6-20.0); Vitamin B12 651 pg/mL (193-986)
--- NOTE | 2021-07-23 10:25 | PT.INIE ---
Date of service: 07/23/21 Time of Service: 09:10 PT Notes Visit Reasons: Symptomatic Anemia Inpatient Physical Therapy Evaluation Date: 07/23/21 Referring Doctor: Maame Cabrera PT Orders: PT CONSULT: Evaluate and Treat Precautions: Standard Patient Profile/Admitting Diagnosis: Orders received for this 80 year female with a history of good physical health. Patient states that she has a recent history of back discomfort and was seen by PT and it was not helpful. SHe has been awaiting a consult to the spine clinic. Patient has been able to deal with this but started to get some SOB over the last night. She was seen by ED and found to have anemia, she has been admitted for management. PMHX: [facility] Active Problem List Cervical disc herniation (Acute) Spinal stenosis (Acute) Paroxysmal atrial fibrillation (Acute) S/P TAVR (transcatheter aortic valve replacement) (Acute) BP (high blood pressure) (Acute) Atherosclerotic cardiovascular disease (Acute) Aortic stenosis (Chronic) Acute cholecystitis (Acute) Degenerative joint disease of right knee (Chronic) Medical History Closed fracture of left distal fibula (03/31/19) Diabetes mellitus Surgical History History of cataract surgery History of hysterectomy Social History/Home Situation: Patient lives at home Equipment Owned/DME: Nothing Subjective: Patient states she feels like getting up and doing a little walking, but does still feel slightly short of breath at times. Although it is much better. Objective: Patient sitting up in bed with no medical lines in place Mental Status: Well oriented and alert to person, place, and time Pain: 4/10 back ROM: Right Upper Extremity: WNL Left Upper Extremity: WNL Right Lower Extremity: WNL Left Lower Extremity: WNL Strength: Right Upper Extremity: Grossly 5/5 Left Upper Extremity: Grossly 5/5 Right Lower Extremity: Grossly 5/5 Left Lower Extremity: Grossly 5/5 Bed Mobility/Transfers: Independent Supine-sit: Independent Sit-stand: Independent Stand-sit: Independent Gait: Assistance-- CGA Distance--Patient ambulates 50 feet before SOB requires her to take a rest. AFter 2 minutes of rest, another 50 feet. Device--2WW Balance: Static Sitting: Normal Dynamic Sitting: Good Static Standing:Good Dynamic Standing: Fair Special Tests: Mobility Limitations Standardized Measure [facility] AM-PAC 6 clicks Basic Mobility Inpatient Short Form: Raw Score: 21 Standardized Score: 50.25 CMS Score: 28.97% [facility] Modifier: TherEX: Patient trained the following exercises, wide sets, gluteal sets, supine and seated shoulder flexion, scapular retraction, long arc quads for sitting Informed Consent/Education: Patient instructed in purpose of PT consult and plan of care. ASSESSMENT: Patient is a 80 year old female with history of fair physical health Admitted with sudden SOB, and diagnosed with anemia Patient presents with the following impairment level findings: Limited ambulation tolerance. SOB on exertion Pt will benefit from skilled therapy intervention in order to remedy their functional limitations and restore patient to a more appropriate and stable functional level. Impairments are contributing to the following functional limitations: AMPAC score 28.97% Patient is assessed as a Moderate complexity 48563 based on the following: History: see above Examination: see above Presentation: evolving Decision Making:Moderate based on AMPAC of 28.97% Goals: Goals X1 week 1. Gait 150 feet with supervision 2: Stairs Full flight with supervision 3: Independent in Home program Plan of Care/Treatment Plan: 1-2x/day, 7 days/week x 1 week. Plan of care has been reviewed with the CLINICAL GENETICIST providing the service under Physical Therapy direction. Initiate Physical Therapy intervention for strengthening, bed mobility, transfers, gait, stairs, balance training, use of assistive device. DISCHARGE RECOMMENDATIONS: ( X ) Home with no services ( ) Home with services [specify] ( ) Home with outpatient PT ( ) SNF for continued rehabilitation ( ) Detention Care ( ) SNF versus LTC based on ability to participate and progress TREATMENT CODE/TIME: Moderate complexity Initial evaluation 89274 20 minutes [id number] Chang Holguin DPT
[2021-07-23] MEDS: Sucralfate 1 GM TAB PO (10:48)
[2021-07-23] MEDS: Furosemide 20 MG/2 ML VIAL IVP (10:48)
--- NOTE | 2021-07-23 11:08 | W.SURGCON ---
Date of service: 07/23/21 Time of Service: 11:08 Assessment and Plan Assessment and plan (1) Anemia: Status: Acute Assessment and plan: Mrs Moody is a pleasant 80 year old female who was admitted with anemia. She received one unit of blood and has been stable. She gets all her care at [facility]. Patient is stable and could be discharged and follow up with GI for capsule endoscopy If there are acute changes then please let me know and we will scope her again here. Qualifiers: Anemia type: iron deficiency Iron deficiency anemia type: chronic blood loss Qualified Code(s): D50.0 - Iron deficiency anemia secondary to blood loss (chronic) History of Present Illness Narrative: Mrs Moody presented to the ED on 07/25 with shortness of breath and dizziness that started worsening the day before. She denied chest pain or fever. Reported bloody stool last sunday, large amount, none since. Had anemia work up last Summer for upper and lower endoscopy for TAVR procedure, states no source found. Her work up in the ED included PE rule out and no other findings on CT to explain symptoms, labs show hemoglobin 7.4. She was admitted to [facility] for blood transfusion. She received 1 unit of blood. Her Hgb/ Hct have been stable. She reports no more bleeding, or abdominal pain. She is on plavix and celebrex. Consults Consult date: 07/23/21 Requesting physician: Roxy Garza Review of Systems Constitutional Constitutional: Denies anorexia, Denies fever(s), Denies headache(s), Denies weakness and Denies weight loss Eyes Eyes: Denies change in vision ENT Ears, Nose, Mouth, and Throat: Denies change in voice, Denies dysphagia, Denies headache(s) and Denies hoarseness Cardiovascular Cardiovascular: Denies chest pain, Denies chest pain at rest, Reports irregular heart rhythm, Denies palpitations and Denies dyspnea Respiratory Respiratory: Denies cough and Denies dyspnea Gastrointestinal Gastrointestinal: Reports as per HPI, Denies dysphagia, Denies dyspepsia and Denies heartburn Genitourinary Genitourinary: Reports system reviewed and no additional complaints, except as documented Musculoskeletal Musculoskeletal: Reports system reviewed and no additional complaints, except as documented Integumentary/Breasts Skin/Breast: Reports system reviewed and no additional complaints, except as documented Neurologic Neurologic: Reports system reviewed and no additional complaints, except as documented, Denies headache(s) and Denies weakness Psychiatric Psychiatric: Reports system reviewed and no additional complaints, except as documented Endocrine Endocrine: Reports system reviewed and no additional complaints, except as documented and Denies palpitations Hematologic/Lymphatic Hematologic/Lymphatic: Reports system reviewed and no additional complaints, except as documented [facility] Active Problem List (Updated 07/23/21 @ 11:19 by Erica Choudhury MD) Anemia (Acute) Medical History (Updated 07/23/21 @ 11:19 by Erica Choudhury MD) Acute cholecystitis Aortic stenosis Atherosclerotic cardiovascular disease BP (high blood pressure) Cervical disc herniation Closed fracture of left distal fibula (03/31/19) Degenerative joint disease of right knee Diabetes mellitus Paroxysmal atrial fibrillation Spinal stenosis Surgical History (Updated 07/23/21 @ 11:18 by Erica Choudhury MD) H/O esophagogastroduodenoscopy (~2019) History of cataract surgery History of hysterectomy S/P colonoscopy (~2019) S/P TAVR (transcatheter aortic valve replacement) Social History Smoking/Tobacco Use Status: Never Smoking risk assessment performed?: Yes Alcohol Intake: never Drug use: Never Substance use type: does not use What type of physical activity do you participate in: additional Details: PT to start Do you feel safe at home: Yes Do you feel safe in your relationship?: Yes Exam Const General: cooperative, comfortable and no acute distress Orientation: alert and oriented x3 HENMT Head: normocephalic and atraumatic Eyes Pupils: PERRL Resp Effort & Inspection: normal respiratory effort Auscultation: clear to auscultation bilaterally Cardio Rate: regular rate Rhythm: regular rhythm Heart Sounds: no gallops, no murmurs and no rubs GI Palpation: soft, no hepatosplenomegaly and nontender Auscultation: normal bowel sounds Results Last Vital Signs Temp 97.9 F 07/23/21 07:36 Pulse 58 L 07/23/21 07:36 Resp 14 07/23/21 07:36 BP 164/69 H 07/23/21 07:36 Pulse Ox 91 L 07/23/21 07:36 Labs Result diagrams: 07/23/21 07:20 07/23/21 07:20 Labs: Laboratory Results - last 24 hr 07/22/21 07/22/21 07/22/21 10:15 10:15 10:15 WBC 8.63 RBC 4.05 Hgb 7.4 L Hct 25.8 L MCV 63.7 L MCH 18.3 L MCHC 28.7 L RDW 18.3 H Plt Count 376 MPV 10.5 Reticulocyte % (Auto) Immature Gran % 0.2 Neutrophils % 75.6 Lymphocytes % 11.6 Monocytes % 7.9 Eosinophils % 3.8 Basophils % 0.9 Nucleated RBC % 0 Absolute Neutrophils 6.52 Absolute Lymphocytes 1.00 L Absolute Monocytes 0.68 Absolute Eosinophils 0.33 Absolute Basophils 0.08 RBC Morphology See Below Polychromasia Present Hypochromasia 2+ Poikilocytosis 1+ Basophilic Stippling Anisocytosis 2+ Microcytosis 2+ PT 11.5 H INR 1.1 APTT 18.1 L D-Dimer 937 H Sodium 139 Potassium 3.5 Chloride 103 Carbon Dioxide 25.7 Anion Gap 10.3 BUN 13 Creatinine 1.0 Estimated GFR/1.73 m2 53.35 Glucose 231 H Hemoglobin A1c Calcium 8.7 Magnesium 1.8 Iron TIBC Transferrin % Sat Ferritin Total Bilirubin 1.1 H AST 44 H ALT 48 Alkaline Phosphatase 202 H Troponin I < 0.05 NT-Pro-B Natriuret Pep 566 H Total Protein 6.5 Albumin 3.1 L Vitamin B12 Folate TSH COVID-19 Source SARS-CoV-2 (PCR) Patient ABO/Rh Antibody Screen Crossmatch 07/22/21 07/22/21 07/22/21 11:50 12:15 14:22 WBC RBC Hgb Hct MCV MCH MCHC RDW Plt Count MPV Reticulocyte % (Auto) Immature Gran % Neutrophils % Lymphocytes % Monocytes % Eosinophils % Basophils % Nucleated RBC % Absolute Neutrophils Absolute Lymphocytes Absolute Monocytes Absolute Eosinophils Absolute Basophils RBC Morphology Polychromasia Hypochromasia Poikilocytosis Basophilic Stippling Anisocytosis Microcytosis PT INR APTT D-Dimer Sodium Potassium Chloride Carbon Dioxide Anion Gap BUN Creatinine Estimated GFR/1.73 m2 Glucose Hemoglobin A1c Calcium Magnesium Iron TIBC Transferrin % Sat Ferritin Total Bilirubin AST ALT Alkaline Phosphatase Troponin I < 0.05 NT-Pro-B Natriuret Pep Total Protein Albumin Vitamin B12 Folate TSH COVID-19 Source Nasal/Nares SARS-CoV-2 (PCR) Negative Patient ABO/Rh O Positive Antibody Screen NEGATIVE Crossmatch See Detail 07/23/21 07/23/21 07/23/21 07:20 07:20 07:20 WBC 9.82 RBC 4.45 Hgb 8.3 L Hct 28.9 L MCV 64.9 L MCH 18.7 L MCHC 28.7 L RDW 21.1 H Plt Count 360 MPV 10.6 Reticulocyte % (Auto) Immature Gran % 0.2 Neutrophils % 71.1 Lymphocytes % 14.6 Monocytes % 8.1 Eosinophils % 5.2 Basophils % 0.8 Nucleated RBC % 0 Absolute Neutrophils 6.98 H Absolute Lymphocytes 1.43 Absolute Monocytes 0.80 Absolute Eosinophils 0.51 Absolute Basophils 0.08 RBC Morphology See Below Polychromasia Present Hypochromasia 2+ Poikilocytosis 1+ Basophilic Stippling Present Anisocytosis 2+ Microcytosis 2+ PT INR APTT D-Dimer Sodium 139 Potassium 3.7 Chloride 103 Carbon Dioxide 27.0 Anion Gap 9.0 BUN 13 Creatinine 1.0 Estimated GFR/1.73 m2 53.35 Glucose 139 H D Hemoglobin A1c Calcium 8.4 L Magnesium Iron TIBC Transferrin % Sat Ferritin 18 Total Bilirubin AST ALT Alkaline Phosphatase Troponin I < 0.05 NT-Pro-B Natriuret Pep Total Protein Albumin Vitamin B12 Folate TSH 2.09 COVID-19 Source SARS-CoV-2 (PCR) Patient ABO/Rh Antibody Screen Crossmatch 07/23/21 07/23/21 07/23/21 07:20 07:20 07:20 WBC RBC Hgb Hct MCV MCH MCHC RDW Plt Count MPV Reticulocyte % (Auto) Immature Gran % Neutrophils % Lymphocytes % Monocytes % Eosinophils % Basophils % Nucleated RBC % Absolute Neutrophils Absolute Lymphocytes Absolute Monocytes Absolute Eosinophils Absolute Basophils RBC Morphology Polychromasia Hypochromasia Poikilocytosis Basophilic Stippling Anisocytosis Microcytosis PT INR APTT D-Dimer Sodium Potassium Chloride Carbon Dioxide Anion Gap BUN Creatinine Estimated GFR/1.73 m2 Glucose Hemoglobin A1c 7.8 H Calcium Magnesium Iron 19 L TIBC 428 Transferrin % Sat 4 L Ferritin Total Bilirubin AST ALT Alkaline Phosphatase Troponin I NT-Pro-B Natriuret Pep Total Protein Albumin Vitamin B12 651 Folate 10.8 TSH COVID-19 Source SARS-CoV-2 (PCR) Patient ABO/Rh Antibody Screen Crossmatch 07/23/21 07:20 WBC RBC Hgb Hct MCV MCH MCHC RDW Plt Count MPV Reticulocyte % (Auto) 1.1 Immature Gran % Neutrophils % Lymphocytes % Monocytes % Eosinophils % Basophils % Nucleated RBC % Absolute Neutrophils Absolute Lymphocytes Absolute Monocytes Absolute Eosinophils Absolute Basophils RBC Morphology Polychromasia Hypochromasia Poikilocytosis Basophilic Stippling Anisocytosis Microcytosis PT INR APTT D-Dimer Sodium Potassium Chloride Carbon Dioxide Anion Gap BUN Creatinine Estimated GFR/1.73 m2 Glucose Hemoglobin A1c Calcium Magnesium Iron TIBC Transferrin % Sat Ferritin Total Bilirubin AST ALT Alkaline Phosphatase Troponin I NT-Pro-B Natriuret Pep Total Protein Albumin Vitamin B12 Folate TSH COVID-19 Source SARS-CoV-2 (PCR) Patient ABO/Rh Antibody Screen Crossmatch
--- NOTE | 2021-07-23 12:39 | W.PM.DS.N ---
Date of service: 07/23/21 Time of Service: 12:40 DS: Diagnosis Discharge Diagnosis (1) Anemia: Start date: 07/23/21 Start time: 12:40 Status: Acute Asessment and Plan: Patient was admitted for SOB and H/H of 7.4/25.8, due to being symptomatic patient did receive 1 unit PRBC in the ED. Stool negative for OB. iron levels low. she was initiated on iron with vitamin C. PPI and carafate started. She [place] all [place] through [facility] Surgery consulted. she has had no bleeding since admission. Feels well. Surgery recommends following up with [facility]. She does have up coming appt. Recommend tryig to follow up sooner. No bleeding since admission PT worked with patient and recommends no HH services. Repeat blood work in 1 week F/u with PCP in 2 week.s (2) S/P TAVR (transcatheter aortic valve replacement): Start date: 07/23/21 Start time: 13:05 Status: Acute Asessment and Plan: On plavix conitinue wih GI protection (3) Diabetes mellitus: Start date: 07/23/21 Start time: 13:06 Status: Chronic Asessment and Plan: Continue home regimin (4) Cervical disc herniation: Start date: 07/23/21 Start time: 13:07 Status: Chronic Asessment and Plan: She has tried outpatient PT and felt his made it worse. Was on celebrex which could have contributed bleeding. Will discontinue medications. Voltaren topical instead She stated that she was doing water abrocics which was very helpful but since [facility] closed she has not been able to do participate in this. Recommend heat, gel, and chiropractor that does manipulation to help with lower back pain. (5) Acute on chronic diastolic CHF (congestive heart failure), NYHA class 2: Start date: 07/23/21 Start time: 13:18 Status: Chronic Asessment and Plan: BNP mildly elevated, given PO lasix with an IVP. No signs of volume overload. Wt is baseline. Discussed with Dr. Spears Discharge Plan Disposition Patient Disposition: HOME Condition: Improving Discharge Details Reason For Visit: Symptomatic Anemia Admit Date/Time: 07/22/21 14:21 Admit Provider: Graeme Morales Attending Provider: Graeme Morales Primary Care Provider: Regis Muller [facility] Course Hospital Course: 80 y.o female with PMH of s/p TAVR on plavix, CHF, DM, hernation to lower back, anemia ID, admitted to [facility] after exprencing SOB That would not subside last nigith no matter what she did. She reported to the ED and was found to be anemic. She reports blood bm last week. Since admission no blood. She received 1 unit PRBC in the Ed. .Today she worked with PT and they feel she is independent. She is on plavxi for TAVR, however she also take celebrex, for severe back pain. She went to outpatient therapy but feels this make her back pain worse. Will write for voltaren gel to be applied to back. Heat as needed for pain. Recommend chiropractor that does manipulation. Surgery was consulted; she appears well and feels well; therefore she is being discharged home. Repeat labs in one week, follow up with PCP in 2 weeks and reach out to [facility] to try to schedule earlier appt. Carafate added to regimen. Per PT no HH services needed. She denies CP , SOB> Home Meds and New Rx's Prescriptions: New sucralfate 1 gram Tablet 1 g PO AC & HS Qty: 120 RF: 0 diclofenac sodium [Voltaren Arthritis Pain] 1 % gel 4 g topical QID Qty: 100 RF: 0 Continued ferrous gluconate 324 mg (37.5 mg iron) tablet 324 mg PO DAILY RF: 0 amiodarone [Pacerone] 200 mg tablet 200 mg PO BID RF: 0 Lantus U-100 Insulin 100 UNITS/ML solution 25 unit Sub-Q BID RF: 0 Humalog U-100 Insulin 100 UNIT/ML cartridge 15 unit Sub-Q TID RF: 0 ascorbic acid (vitamin C) [Vitamin C] 1,000 mg Tablet 1,000 mg PO DAILY RF: 0 Multi For Her 18 mg iron-600 mcg-40 mcg Capsule 1 tab-cap PO DAILY RF: 0 pantoprazole [Protonix] 40 mg Tablet,Delayed Release (Dr/Ec) 40 mg PO BID RF: 0 rosuvastatin 20 mg Tablet 20 mg PO HS RF: 0 clopidogrel [Plavix] 75 mg tablet 75 mg PO DAILY RF: 0 metoprolol succinate 100 mg tablet extended release 24 hr 200 mg PO QHS RF: 0 amitriptyline 10 mg tablet 10 mg PO DIRECTED RF: 0 metronidazole 0.75 % cream 1 applic TOPICAL BID RF: 0 glipizide 5 mg tablet 5 mg PO DAILY RF: 0 vitamin B complex [B Complex-Vitamin B12] 1 EACH tablet 1 ea PO DAILY RF: 0 cholecalciferol (vitamin D3) [Vitamin D3] 1,000 UNIT capsule 1,000 unit PO DAILY RF: 0 losartan 100 MG tablet 100 mg PO HS RF: 0 Discontinued celecoxib 100 mg capsule 100 mg PO BID RF: 0 Discharge Instructions Instructions: Gastrointestinal Bleeding (DC), Anemia (DC) Additional Instructions: Follow upi with [facility] to try to get in earlier than your scheduled appt. Repeat Lab work in 1 week, follow up with PCP in 2 weeks Recommend heat for back, chiropractor for manipulation since pool is closed, and voltaren gel Stand Alone Forms: Nursing Discharge Form Activity:: Activity as Tolerated Equipment/Supplies:: No Equipment Needed Diet:: Carb Counting Discharge Orders Discharge Orders: Discharge Order (Routine); Ordered 07/23/21 Ordered By: Roxy Garza DS: Summary Time Spent with Patient providing and/or coordinating discharge services: Greater than 30 minutes Status at Discharge Functional status at discharge: independent ambulation Overall status at discharge: patient is back to baseline Mental Status: mental status grossly normal Speech and Movement: speech and movement normal Mood: congruent mood Affect: normal affect and other Exam Const General: cooperative, healthy appearing (younger than stated age), comfortable, no acute distress and well groomed Nutritional Appearance: overweight Orientation: alert, awake and oriented x3 HENVA Head: normal to inspection, normocephalic and atraumatic Mouth: oral mucosae normal Resp Effort & Inspection: normal respiratory effort Auscultation: clear to auscultation bilaterally Cardio Rate: regular rate Rhythm: regular rhythm GI Inspection: normal to inspection Palpation: soft Auscultation: normal bowel sounds Skin General skin exam: no rashes or lesions noted Neuro General: patient alert, patient awake, patient oriented x3 and no focal motor deficits Cranial Nerves: CN's II-XI intact bilaterally Extrem General: normal to inspection, full ROM and no pedal edema Psych Mental Status: mental status grossly normal Speech and Movement: speech and movement normal Mood: congruent mood Affect: normal affect DS: Data Vitals/I&O Vitals and I&O: Vital Signs Temperature 36.6 C 07/23/21 07:36 Temperature Source Tympanic 07/23/21 07:36 Pulse 58 L 07/23/21 07:36 Pulse Rhythm Regular 07/23/21 09:24 Pulse 81 07/22/21 15:10 Respiratory Rate 14 07/23/21 07:36 Respiratory Effort 07/23/21 09:24 Respiratory Depth Normal 07/23/21 09:24 Respiratory Pattern Normal 07/23/21 09:24 Blood Pressure 164/69 H 07/23/21 07:36 Blood Pressure Mean 101 07/22/21 15:03 Blood Pressure Position Sitting 07/22/21 10:02 Pulse Oximetry 91 L 07/23/21 07:36 Oxygen Delivery Method Room Air 07/23/21 07:36 Oxygen Flow Rate 0 07/23/21 07:36 Pain Level 0 07/23/21 07:36 Comment 07/22/21 16:43 Intake & Output 07/22/21 07/23/21 07/23/21 23:59 11:59 23:59 Intake Total 250 / 250 Output Total 450 / 450 650 / 650 Balance -200 / -200 -650 / -650 Weight 86.3 kg Intake: Blood Product 250 / 250 Rbc Leuko Reduced Unit 250 / 250 [id number] Output: Urine 450 / 450 650 / 650 Other: Urine Color Yellow Light Lise Urine Appearance Clear Clear Urine Odor None None Comment pt reported mucus coming from her butt Stool Size Small Stool Characteristics Formed Mucoid Voiding Methods Toilet Toilet Data Completed and Pending Completed studies during hospitalization [Text1]: Patient Name: Shannan Moody AUnit #: [id number]: CONSTANTINE Ordering Provider: Regis Muller M.D. : [facility] Primary Care Provider: Regis Muller M.D.Date of Exam: 06/14/21Sex: F Admission Date: 06/14/21 : 1940 Age: 80 Exam(s) MR CERVICAL SPINE WO EXAM: MR CERVICAL SPINE WO CLINICAL HISTORY: CERVICAL DISC DISORDER, M50.83,NECK PAIN TECHNIQUE: Multiplanar multisequence MRI of the cervical spine was performed without intravenous contrast. COMPARISON: No exams were available for comparison FINDINGS: BONES: Vertebral body heights are maintained. There is narrowing of the C5-C6 disc space. Alignment is normal. There are endplate degenerative signal changes at several levels of the cervical spine. CERVICAL CORD: Craniovertebral junction is unremarkable. The cervical cord is normal size and signal intensity. SOFT TISSUES: Unremarkable. C2-3: No disc herniation or bulge is identified. No significant central spinal canal or neural foraminal stenosis. C3-4: There is prominence of the osteophyte disc complex with a central disc herniation. The AP diameter of the central spinal canal is 8 mm. No right neural foraminal stenosis is seen. There is narrowing of the left neural foramen. C4-5: There is prominence of the osteophyte disc complex effacing the anterior subarachnoid space. The AP diameter of the central spinal canal is 8 mm. Degenerative changes of the uncovertebral joint causes bilateral neural foraminal narrowing. C5-6: There is prominence of the osteophyte disc complex effacing the anterior subarachnoid space and flattening the spinal cord. There is normal signal in the spinal cord. The AP diameter of the central spinal canal is 8 mm. There are hypertrophic changes of the uncovertebral joints causing bilateral neural foraminal stenosis, left greater than right. C6-7: There is prominence of the osteophyte disc complex with a face mint of the anterior subarachnoid space. No significant central spinal canal stenosis is present. There are hypertrophic changes of the uncovertebral joints causing [id number] bilateral neural foraminal stenosis, left greater than right. C7-T1: No disc herniation or bulge is identified. No significant central spinal canal or neural foraminal stenosis IMPRESSION: Multilevel degenerative changes in the cervical spine causing neural foraminal and central spinal canal stenosis. Please see the above discussion for complete details complete Exam(s) a CT:CT chest PE abd & pelvis w Exam(s) CT CHEST PE ABD PELVIS W EXAM: CT CHEST PE ABD PELVIS W CLINICAL HISTORY: sob,elevated dimer. TECHNIQUE: Imaging Protocol: Axial CT angiography was performed with multi-slice acquisition and multi-planar and/or 3D reconstructions. CONTRAST MATERIAL: Intravenous: Omnipaque 350 Contrast volume:100 ml COMPARISON: CT CT ABDOMEN PELVIS WO from 04/18/[address] ABDOMEN PELVIS WO from 04/18/2020 CR XR PORTABLE CHEST AP from 07/22/2021 FINDINGS: CHEST: Pulmonary Arteries: No evidence of filling defect to suggest pulmonary emboli. Tracheobronchial tree: Patent where visualized. Mediastinum and Carol: No dominant adenopathy or fluid collection. Pulmonary parenchyma: No consolidation or dominant measurable mass. Suboptimal evaluation due to expiratory changes and mild respiratory motion. Interlobular septal thickening consistent with CHF. Pleura: No pneumothorax. Small bilateral pleural effusions. Heart: The heart is moderately dilated. Coronary artery calcifications and stents are seen. Mitral valve calcifications. Aorta: Thoracic aorta non-dilated. Valve prosthesis. Bones: Degenerative changes. ABDOMEN: Liver: Normal density. No measurable mass. Portal, Superior Mesenteric, and Splenic Veins: Unremarkable. Gallbladder and Biliary Tract: Status post cholecystectomy. No radiodense calculus or dilation. Pancreas: Normal density, no abnormal calcifications or inflammatory process. Spleen: Normal size. Small cyst. Adrenals: No masses seen. Kidneys: Normal size, contour and axis. No radiodense stones or obstructive uropathy. No masses seen. Abdominal Aorta: Abdominal portion non-dilated. Calcification. No aneurysm or dissection. Bowel: Scattered diverticula. No evidence of diverticulitis. No obstruction or bowel wall thickening. Peritoneal Cavity: No ascites, collection or mesenteric inflammatory response. Lymph Nodes: Within normal limits. Bones: Mild compression fracture of L2, stable. Soft Tissues: No change small fatty umbilical hernia. PELVIS: Bladder: Symmetric distention, no gross wall thickening. Reproductive Organs: Status post hysterectomy.. Lymph Nodes: Within normal limits. Bones: Degenerative changes of the hips. IMPRESSION: 1. No evidence of pulmonary embolism. Cardiomegaly, bilateral pleural effusions and increased interstitial markings, consistent with CHF. 2. No acute abdominal or pelvic process. FINDINGS: Bones: The last intervertebral disc space is designated the L5/S1 level for the numbering purpose of this examination. The vertebral body heights are well maintained. A Schmorl's node is seen in the superior endplate of L2. Alignment is satisfactory. Degenerative endplate signal changes are seen at multiple levels of the lumbar spine. Cord: The conus tip ends at the L1 level. It is of normal size and signal intensity. T12-L1: No disc herniations or bulges are present. No central spinal canal or neural foraminal stenosis. L1-2: There is a diffuse disc bulge. There are degenerative changes of the facets mild narrowing of the central spinal canal is lobe. There is mild bilateral neural foraminal narrowing. L2-3: There is a diffuse disc bulge. There are hypertrophic changes of the facets. Mild narrowing of the central spinal canal is results. There is mild narrowing of the neural foramen, left greater than right. L3-4: There is a diffuse disc bulge. There are hypertrophic changes of the facets. There is mild narrowing of the central spinal canal. Mild bilateral neural foraminal stenosis is present. L4-5: There is a diffuse disc bulge. There are hypertrophic changes of the facets. This causes narrowing of the transverse diameter of the central spinal canal resulting and moderately severe central spinal canal stenosis. There is moderate right and mild left neural foraminal stenosis. L5-S1: No disc herniations or bulges are present. There are degenerative changes of the facets. No central spinal canal stenosis is present.No significant neural foraminal stenosis. Soft tissues: The visualized SI joints and sacrum are well maintained. The paraspinal soft tissues are unremarkable. There is a stable well-circumscribed round subcutaneous nodule in the soft tissues of the back. IMPRESSION: Multilevel degenerative changes in the lumbar spine resulting in central spinal canal neural foraminal stenosis as described above. Labs on day of discharge: Labs from last 24 hours 07/23/21 07/23/21 07/23/21 07:20 07:20 07:20 WBC RBC Hgb Hct MCV MCH MCHC RDW Plt Count MPV Reticulocyte % (Auto) 1.1 Immature Gran % Neutrophils % Lymphocytes % Monocytes % Eosinophils % Basophils % Nucleated RBC % Absolute Neutrophils Absolute Lymphocytes Absolute Monocytes Absolute Eosinophils Absolute Basophils RBC Morphology Polychromasia Hypochromasia Poikilocytosis Basophilic Stippling Anisocytosis Microcytosis Sodium Potassium Chloride Carbon Dioxide Anion Gap BUN Creatinine Estimated GFR/1.73 m2 Glucose Hemoglobin A1c 7.8 H Calcium Iron TIBC Transferrin % Sat Ferritin Troponin I Vitamin B12 651 Folate 10.8 TSH SARS-CoV-2 (PCR) Path Cons Comment Patient ABO/Rh Antibody Screen Crossmatch 07/23/21 07/23/21 07/23/21 07:20 07:20 07:20 WBC 9.82 RBC 4.45 Hgb 8.3 L Hct 28.9 L MCV 64.9 L MCH 18.7 L MCHC 28.7 L RDW 21.1 H Plt Count 360 MPV 10.6 Reticulocyte % (Auto) Immature Gran % 0.2 Neutrophils % 71.1 Lymphocytes % 14.6 Monocytes % 8.1 Eosinophils % 5.2 Basophils % 0.8 Nucleated RBC % 0 Absolute Neutrophils 6.98 H Absolute Lymphocytes 1.43 Absolute Monocytes 0.80 Absolute Eosinophils 0.51 Absolute Basophils 0.08 RBC Morphology See Below Polychromasia Present Hypochromasia 2+ Poikilocytosis 1+ Basophilic Stippling Present Anisocytosis 2+ Microcytosis 2+ Sodium 139 Potassium 3.7 Chloride 103 Carbon Dioxide 27.0 Anion Gap 9.0 BUN 13 Creatinine 1.0 Estimated GFR/1.73 m2 53.35 Glucose 139 H D Hemoglobin A1c Calcium 8.4 L Iron 19 L TIBC 428 Transferrin % Sat 4 L Ferritin 18 Troponin I Vitamin B12 Folate TSH 2.09 SARS-CoV-2 (PCR) Path Cons Comment Patient ABO/Rh Antibody Screen Crossmatch 07/23/21 07/22/21 07/22/21 07:20 14:22 12:15 WBC RBC Hgb Hct MCV MCH MCHC RDW Plt Count MPV Reticulocyte % (Auto) Immature Gran % Neutrophils % Lymphocytes % Monocytes % Eosinophils % Basophils % Nucleated RBC % Absolute Neutrophils Absolute Lymphocytes Absolute Monocytes Absolute Eosinophils Absolute Basophils RBC Morphology Polychromasia Hypochromasia Poikilocytosis Basophilic Stippling Anisocytosis Microcytosis Sodium Potassium Chloride Carbon Dioxide Anion Gap BUN Creatinine Estimated GFR/1.73 m2 Glucose Hemoglobin A1c Calcium Iron TIBC Transferrin % Sat Ferritin Troponin I < 0.05 < 0.05 Vitamin B12 Folate TSH SARS-CoV-2 (PCR) Path Cons Comment Patient ABO/Rh O Positive Antibody Screen NEGATIVE Crossmatch See Detail 07/22/21 07/22/21 11:50 10:15 WBC RBC Hgb Hct MCV MCH MCHC RDW Plt Count MPV Reticulocyte % (Auto) Immature Gran % Neutrophils % Lymphocytes % Monocytes % Eosinophils % Basophils % Nucleated RBC % Absolute Neutrophils Absolute Lymphocytes Absolute Monocytes Absolute Eosinophils Absolute Basophils RBC Morphology Polychromasia Hypochromasia Poikilocytosis Basophilic Stippling Anisocytosis Microcytosis Sodium Potassium Chloride Carbon Dioxide Anion Gap BUN Creatinine Estimated GFR/1.73 m2 Glucose Hemoglobin A1c Calcium Iron TIBC Transferrin % Sat Ferritin Troponin I Vitamin B12 Folate TSH SARS-CoV-2 (PCR) Negative Path Cons Comment Pending Patient ABO/Rh Antibody Screen Crossmatch [facility] Active Problem List Acute on chronic diastolic CHF (congestive heart failure), NYHA class 2 (Chronic) Cervical disc herniation (Chronic) Diabetes mellitus (Chronic) S/P TAVR (transcatheter aortic valve replacement) (Acute) Anemia (Acute) Medical History Acute cholecystitis Aortic stenosis Atherosclerotic cardiovascular disease BP (high blood pressure) Closed fracture of left distal fibula (03/31/19) Degenerative joint disease of right knee Paroxysmal atrial fibrillation Spinal stenosis Surgical History H/O esophagogastroduodenoscopy (~2019) History of cataract surgery History of hysterectomy S/P colonoscopy (~2019) Social History Smoking/Tobacco Use Status: Never Smoking risk assessment performed?: Yes Alcohol Intake: never Drug use: Never Substance use type: does not use What type of physical activity do you participate in: additional Details: PT to start Do you feel safe at home: Yes Do you feel safe in your relationship?: Yes
--- NOTE | 2021-07-23 14:31 | CMDISCH_ITS ---
- If Service Date Differs Date of service: 07/23/21 Time of Service: 14:31 LACE Index Scoring Tool - Questions: Length of Stay (in days): 1 Acuity (Admit via E.D.?): Yes Comorbidities: Diabetes w/o Complication E.D. Visits: 3 - Answers: Total Score: 8 Risk of Readmission: Low Risk Care Management Discharge Reason for Hospitalization: Symptomatic Anemia. Discharge Plan: Melina is discharged home with no new services. She will follow up with her PCP, [facility] providers, and plan of care as instructed. Her granddaughter, Lise, is driving her home via private vehicle. Patient/Family Education Needs: Review discharge instructions, including medications, limitations, and follow up plan of care, and discuss Ask Me Three and self management.
--- NOTE | 2021-07-25 17:30 | PT.INDS ---
Date of service: 07/25/21 PT Notes Visit Reasons: Symptomatic Anemia Physical Therapy Inpatient Discharge Summary Date: 07/25/21 Dates of Service: only This is a clinical summary of care provided for the duration of dates listed above. No charge was made in the completion of this documentation. Referring Doctor: Maame Cabrera PT Orders: PT CONSULT: Evaluate and Treat Precautions: Standard Patient Profile/Admitting Diagnosis: Orders received for this 80 year female with a history of good physical health. Patient states that she has a recent history of back discomfort and was seen by PT and it was not helpful. SHe has been awaiting a consult to the spine clinic. Patient has been able to deal with this but started to get some SOB over the last night. She was seen by ED and found to have anemia, she has been admitted for management. PMHX: [facility] Active Problem List Cervical disc herniation (Acute) Spinal stenosis (Acute) Paroxysmal atrial fibrillation (Acute) S/P TAVR (transcatheter aortic valve replacement) (Acute) BP (high blood pressure) (Acute) Atherosclerotic cardiovascular disease (Acute) Aortic stenosis (Chronic) Acute cholecystitis (Acute) Degenerative joint disease of right knee (Chronic) Medical History Closed fracture of left distal fibula (03/31/19) Diabetes mellitus Surgical History History of cataract surgery History of hysterectomy Social History/Home Situation: Patient lives at home Equipment Owned/DME: Nothing Subjective: NT. See most recent VP & GENERAL COUNSEL notes. Objective: NT. See most recent VP & GENERAL COUNSEL notes. Mental Status: NT. See most recent VP & GENERAL COUNSEL notes. Pain: NT. See most recent VP & GENERAL COUNSEL notes. ROM: Right Upper Extremity: WNL Left Upper Extremity: WNL Right Lower Extremity: WNL Left Lower Extremity: WNL Strength: Right Upper Extremity: Grossly 5/5 Left Upper Extremity: Grossly 5/5 Right Lower Extremity: Grossly 5/5 Left Lower Extremity: Grossly 5/5 Bed Mobility/Transfers: Independent Supine-sit: Independent Sit-stand: Independent Stand-sit: Independent Gait: Assistance-- CGA Distance--Patient ambulates 50 feet before SOB requires her to take a rest. AFter 2 minutes of rest, another 50 feet. Device--2WW Balance: Static Sitting: Normal Dynamic Sitting: Good Static Standing:Good Dynamic Standing: Fair ASSESSMENT: Patient was only seen for PT evaluation and was sent home with HH PT referral same day of evaluation. Goals: Goals X1 week 1. Gait 150 feet with supervision NOT MET 2: Stairs Full flight with supervision NOT MET 3: Independent in Home program NOT MET DISCHARGE RECOMMENDATIONS: ( X ) Home with no services ( ) Home with services [specify] ( ) Home with outpatient PT ( ) SNF for continued rehabilitation ( ) [facility] ( ) SNF versus LTC based on ability to participate and progress TREATMENT CODE/TIME: NC Thank you for the opportunity to participate in the care of this patient. Lynette Briggs PT, DPT, CLT [facility] [place], [place]
== END 2021-07-23 15:16 | disposition home or self-care (01) | DRG 811 ==
LOC: ER 14:25 → MS 15:11
PROVIDERS: Nurse Practitioner Acute Care; Admitting Provider Family Medicine; Emergency Provider Physician Assistant; PCP Family Medicine; Visit Provider Family Medicine
DX: D50.0 Iron deficiency anemia secondary to blood loss (chronic) (principal); I50.33 Acute on chronic diastolic (congestive) heart failure; E11.9 Type 2 diabetes mellitus without complications; Z95.2 Presence of prosthetic heart valve; I11.0 Hypertensive heart disease with heart failure; I48.0 Paroxysmal atrial fibrillation; Z79.01 Long term (current) use of anticoagulants; Z79.4 Long term (current) use of insulin; Z79.84 Long term (current) use of oral hypoglycemic drugs; M17.11 Unilateral primary osteoarthritis, right knee; I25.10 Atherosclerotic heart disease of native coronary artery without angina pectoris; M48.00 Spinal stenosis, site unspecified; M50.20 Other cervical disc displacement, unspecified cervical region; Z20.822 Contact with and (suspected) exposure to COVID-19
CPT/HCPCS: 36415; 36416; 36430; 71275; 74177; 80048; 80053; 82962; 86850; 86900; 86901; 86920; 87635; 93005; 97162; 99222; 99285; 71045; 82607; 82728; 82746; 83036; 83540; 83550; 83735; 83880; 84443; 84484; 85025; 85045; 85379; 85610; 85730; 93010; 99223; 99239; J1815; J1941; J3490; P9016

== ENCOUNTER 2021-08-08 13:25 | Outpatient (REF) | payer MEDICARE, SELFPAY ==
[2021-08-08 15:51] LABS: HCT 29.7 % (36.0-46.0); HGB 8.3 g/dL (11.2-15.7); MCH 18.2 pg (27.0-33.0); MCHC 27.9 % (32.0-36.0); MCV 65.3 fL (80-95); Platelet Count 313 10^3/uL (130-400); RBC 4.55 10^6/uL (3.93-5.22); RDW 23.8 % (11.7-14.6); RDW-SD 53.9 fL; WBC 6.96 10^3/uL (4.4-10.8)
== END 2021-08-08 13:26 | disposition home or self-care (01) ==
LOC: NCHCN 13:25
PROVIDERS: PCP Family Medicine; Visit Provider Family Medicine
DX: D64.9 Anemia, unspecified (principal)
CPT/HCPCS: 85027

== ENCOUNTER 2021-09-22 15:39 | Outpatient (REF) | payer MEDICARE, SELFPAY | END 2021-09-22 15:40 | disposition home or self-care (01) | LOC: NCHCN 15:39 | PROVIDERS: PCP Family Medicine; Visit Provider Family Medicine | DX: R30.0 Dysuria (principal) | CPT/HCPCS: 87077; 87086; 87186 ==

== ENCOUNTER 2022-10-17 09:37 | Outpatient (CLI) | payer MEDICARE, SELFPAY ==
[2022-10-17 10:07] LABS: Abs Immature Grans 0.03 10^3/uL (0.0-0.06); Absolute Basophil Count 0.07 10^3/uL (0.0-0.2); Absolute Eosinophil Count 0.28 10^3/uL (0.0-0.7); Absolute Lymphocyte Count 1.49 10^3/uL (1.2-3.4); Absolute Monocyte Count 0.56 10^3/uL (0.1-0.8); Absolute Neutrophil Count 4.27 10^3/uL (1.2-6.7); Eosinophils % 4.2; HCT 37.6 % (36.0-46.0); Immature Grans % 0.4; Lymphocytes % 22.2; MCH 27.6 pg (27.0-33.0); MCHC 31.9 % (32.0-36.0); MCV 87 fL (80-95); MPV 11.6 fL (8.0-11.0); Monocytes % 8.4; Neutrophils % 63.8; Platelet Count 153 10^3/uL (130-400); RBC 4.34 10^6/uL (3.93-5.22); RDW-SD 44.8 fL
[2022-10-17 10:35] LABS: ALT 40 U/L (14-59); AST 32 U/L (15-37); Albumin 3.7 g/dL (3.4-5.0); Alkaline Phosphatase 149 U/L (46-116); Anion Gap 9.7 mmol/L (3-11); BUN 17 mg/dL (7-18); Bilirubin, Total 1.3 mg/dL (0.2-1.0); CO2 24.3 mmol/L (21.0-32.0); CREATININE 1.1 mg/dL (0.55-1.02); Calcium 9.1 mg/dL (8.5-10.1); Chloride 101 mmol/L (98-107); Estimated GFR 50.17 (mL/min/1.73m2); Glucose 462 mg/dL (74-106); Potassium 4.4 mmol/L (3.5-5.1); Sodium 135 mmol/L (136-145); TSH (W/Ref FT4) 2.84 uIU/mL (0.36-3.74)
== END 2022-10-17 09:38 | disposition home or self-care (01) ==
LOC: LBO 09:40
PROVIDERS: PCP Family Medicine; Visit Provider Family Medicine
DX: I10 Essential (primary) hypertension (principal); E11.9 Type 2 diabetes mellitus without complications; R20.2 Paresthesia of skin
CPT/HCPCS: 36415; 80053; 84443; 85025

== ENCOUNTER 2023-04-12 18:29 | Emergency (ER) | payer MEDICARE, SELFPAY ==
[2023-04-12] VITALS (27 sets, daily range): BP systolic 139–194; BP diastolic 37–89; PULSE 73–108; RESP 12–23; TEMP 36.4; O2SAT 91–100
--- NOTE | 2023-04-12 18:30 | DI.RAD_ITS ---
Exam(s) XR CHEST 2V PA LATERAL EXAM: XR CHEST 2V PA LATERAL CLINICAL HISTORY: shortness of breath. TECHNIQUE: 2D digital imaging was performed. COMPARISON: CR XR PORTABLE CHEST AP from 07/22/2021 FINDINGS: 2 views: Heart size is normal. Aortic valve TAVR again noted. The mediastinum is not widened. Lungs are clear. No infiltrates nor pleural effusions. No evidence of pulmonary edema. IMPRESSION: No acute pulmonary findings. Aortic valve TAVR again noted. Heart size normal DATA REPOSITORY: RADIATION DOSE DELIVERED:
--- NOTE | 2023-04-12 18:30 | RT.EKG_ITS ---
APPROVED REPORT Exam: Resting ECG Reason for Exam: SOB Patient Location: E HR:101 bpm ECG Measurements Heart Rate 101 AXIS AR 126 P 41 QRSd 158 QRS -56 QT 415 T -7 QTc 538 Conclusion Sinus tachycardia...rate> 99 Probable left atrial enlargement...P >50mS, <-0.10mV V1 RBBB and LAFB...QRSd >120mS, axis(-40,240) Lateral infarct, age indeterminate...Q>35mS, T neg, V5-V6 I aVL artifact, repeated
--- NOTE | 2023-04-12 18:38 | ED.GENADUL_ITS ---
Discharge Plan Disposition Patient Disposition: Home Discharge Details Chief Complaint: SOB Clinical Impression: Acute bronchospasm, Shortness of breath, Elevated liver transaminase level, Hyperglycemia due to diabetes mellitus, BRBPR (bright red blood per rectum), Diabetes mellitus, S/P TAVR (transcatheter aortic valve replacement), Hypomagnesemia Primary Care Provider: Regis Muller ED Provider: Magdalene Galvez Home Meds and New Rx's Prescriptions: No Action ferrous gluconate 324 mg (37.5 mg iron) tablet 324 mg PO DAILY amiodarone [Pacerone] 200 mg tablet 200 mg PO BID insulin glargine [Lantus U-100 Insulin] 100 UNITS/ML solution 25 unit Sub-Q BID Humalog U-100 Insulin 100 UNIT/ML cartridge 15 unit Sub-Q TID ascorbic acid (vitamin C) [Vitamin C] 1,000 mg Tablet 1,000 mg PO DAILY Multi For Her 18 mg iron-600 mcg-40 mcg Capsule 1 tab-cap PO DAILY pantoprazole [Protonix] 40 mg Tablet,Delayed Release (Dr/Ec) 40 mg PO BID rosuvastatin 20 mg Tablet 20 mg PO HS clopidogrel [Plavix] 75 mg tablet 75 mg PO DAILY metoprolol succinate 100 mg tablet extended release 24 hr 200 mg PO QHS amitriptyline 10 mg tablet 10 mg PO DIRECTED Patient Comments: TAKE ONE-HALF TO TWO TABLETS BY MOUTH AT BEDTIME Rx Instructions: 1/2 -2 tablets every night metronidazole 0.75 % cream 1 applic TOPICAL BID Patient Comments: APPLY A SMALL AMOUNT TO AFFECTED AREA TWICE A DAY glipizide 5 mg tablet 5 mg PO DAILY Patient Comments: TAKE ONE TABLET BY MOUTH EVERY DAY sucralfate 1 gram Tablet 1 g PO AC & HS Qty: 120 0RF diclofenac sodium [Voltaren Arthritis Pain] 1 % gel 4 g topical QID Qty: 100 0RF Rx Instructions: apply to back up to 4 times as needed for pain vitamin B complex [B Complex-Vitamin B12] 1 EACH tablet 1 ea PO DAILY cholecalciferol (vitamin D3) [Vitamin D3] 1,000 UNIT capsule 1,000 unit PO DAILY losartan 100 MG tablet 100 mg PO HS Discharge Instructions Instructions: Rectal Bleeding (ED), Dyspnea (ED), Hypomagnesemia (ED), Bronchospasm (ED), Diabetic Hyperglycemia (ED) Additional Instructions: 1. Use your albuterol MDI spacer for your shortness of breath. Take up to 3 puffs, 5 minutes apart, every 4 hours as needed for cough wheezing. 2. Call your primary care provider in the morning for a follow-up appointment and recheck. Ask about sliding scale insulin dosing regimen. 3. Avoid alcohol and acetaminophen, until your liver function tests are normal. 4. General surgery will be contacting you to schedule appointment for the rectal bleeding. 5. Return to the emergency department for any new or worrisome symptoms such as recurrent chest discomfort or worsening shortness of breath, fevers or any concerns. Discharge Data Discharge Physician: Magdalene Galvez Medical Decision Making This is an 83-year-old male who is status post TAVR procedure with with bovine Aortic valve replacement and a history of aortic stenosis and diastolic heart failure. She also has a history of COPD, does not have any inhalers at home. She resents today with a 2-day history of shortness of breath, mild wheezing and cough productive yellow-white sputum. She also has tightness in the chest, which has been constant for 10 days. On examination she is bronchospastic and does not have any signs of congestive heart failure such as JVD or peripheral edema I do not hear rales on auscultation. She has had a subjective fever at home and she is an insulin-dependent diabetic. He has had COVID and has been immunized against COVID but does not believe she has been immunized against pneumococcus. She was not in any respiratory distress but does have chest tightness. I find it unusual that she has a diagnosis of COPD but does not have any inhalers. She is not sure if she has ever had an MRI. On exam she does not appear to be in respiratory distress. She is not using accessory muscle and is able to speak in full sentences. My plan is to obtain an EKG, blood work including a CBC troponin D-dimer since her chest pain is worse with deep inspiration. We will test her for COVID RSV and flu. I will obtain a chest x- ray. I will give her aspirin but I will hold off on the nitroglycerin because she does have a history of aortic stenosis and does have 3/6 follow-up ejection murmur Differential Diagnosis Differential Diagnosis: Viral infection, pneumonia PE, ACS Medical Records Medical records reviewed: Yes I reviewed the patient's medical records. Imaging Data Radiologic Study: Imaging: X-Ray (PA and lateral chest x-ray) Radiologist's impression: No acute disease Radiologic Study #2: Imaging: CT Scan (CTA of chest and CT abdomen pelvis with IV contrast) Radiologist's impression: 1. No evidence of pulmonary embolus. 2. No evidence of aortic aneurysm or dissection. Moderate atherosclerotic changes noted. No severe stenosis of the celiac mesenteric or renal arteries evident. ECG Data Prior ECG tracings: available for review HPI General Date/Time Provider Initiated Documentation: 04/12/23 18:38 . Limitations to Documentation: other (The patient is a great historian, e.g. She does not know whether she has ever had a myocardial) . Information obtained by: patient, family, RN notes reviewed and old records reviewed . HPI Narrative: Time seen was 1855 in bed 7. The patient is a 82-year-old female with a history of diabetes who is status post TAVR procedure with a bovine aortic valve replacement in August 2020. She also tells me she has a history of COPD but does not use oxygen at home and has never been prescribed inhalers. According to her old record she also has a history of diastolic heart failure. She presents today with 1 to 2 days of gradually progressive cough and shortness of breath with exertion. The shortness of breath is accompanied by chest tightness which she describes as intermittent but which has been constant for 48 hours. She has had previous episodes of chest tightness but is not sure if she has ever had an acute myocardial infarction. She states that she has had a severe cough productive of yellow-white sputum. She has chest pain that she described as tightness in her chest wall and radiates back. Is currently 5-6 out of 10 in severity and located anterior chest wall. It is aggravated by deep inspiration. She is not short of breath sitting at rest but states it is worse with recumbency. She denies any fever but endorses 2 days of clear rhinorrhea. She also tells me she has had 3 episodes of diarrhea tinged with blood over the past 2 days. She has had nausea but no vomiting. She was unable to quantitate the amount of blood in her stool. Has had a history of a hysterectomy and what sounds like acute cholecystitis requiring a percutaneous drain and subsequent laparoscopic cholecystectomy. The patient has been immunized with COVID and also had COVID a couple years ago. She denies any abdominal pain. She has chronic neck and back pain which is unchanged. She tells me she has history of arthritis, but is not on any immunosuppression. She believe she has not been immunized against pneumonia she also endorses dizziness. She took 1 Tylenol yesterday. She is an insulin-dependent diabetic but does not use a sliding scale. She also enforces numbness and tingling in her which is intermittent and not changed in severity or frequency. She has had a subjective fever. No sore throat. No earache. No tinnitus or ear discharge. No change in hearing. No sore throat. No sick contacts. She denies any leg pain or swelling. She tells me that her blood sugar has been running high with a maximum blood sugar of 240 over the past days. She believes she has had an EGD to screen colonoscopies in the past Related Data Home Medications Medication Instructions Recorded Confirmed insulin glargine 100 unit/mL 25 unit subcut BID 11/28/15 04/12/23 subcutaneous solution (Lantus U-100 Insulin) insulin lispro 100 unit/mL 15 unit subcut TID 11/28/15 04/12/23 subcutaneous cartridge (Humalog U-100 Insulin) cholecalciferol (vitamin D3) 25 1,000 unit PO DAILY 01/30/18 04/12/23 mcg (1,000 unit) capsule (Vitamin D3) losartan 100 mg tablet 100 mg PO HS 01/30/18 04/12/23 vitamin B complex (B 1 ea PO DAILY 01/30/18 04/12/23 Complex-Vitamin B12 tablet) ascorbic acid (vitamin C) 1,000 mg 1,000 mg PO DAILY 04/14/20 04/12/23 tablet (Vitamin C) [id number] fumarate 18 1 tab-cap PO DAILY 04/14/20 04/12/23 mg-FA 600 mcg-vit K 40 mcg capsule (Multi For Her) pantoprazole 40 mg tablet,delayed 40 mg PO BID 06/10/20 04/12/23 release (Protonix) rosuvastatin 20 mg tablet 20 mg PO HS 06/10/20 04/12/23 amiodarone 200 mg tablet (Pacerone) 200 mg PO BID 11/05/20 04/12/23 clopidogrel 75 mg tablet (Plavix) 75 mg PO DAILY 11/05/20 04/12/23 ferrous gluconate 324 mg (37.5 mg 324 mg PO DAILY 11/05/20 04/12/23 iron) tablet amitriptyline 10 mg tablet 10 mg PO DIRECTED 07/22/21 04/12/23 glipizide 5 mg tablet 5 mg PO DAILY 07/22/21 04/12/23 metoprolol succinate 100 mg 200 mg PO QHS 07/22/21 04/12/23 tablet,extended release 24 hr metronidazole 0.75 % topical cream 1 applic topical BID 07/22/21 04/12/23 diclofenac sodium 1 % topical gel 4 g topical QID #100 grams 07/23/21 04/12/23 (Voltaren Arthritis Pain) sucralfate 1 gram tablet 1 g PO AC & HS #120 tabs 07/23/21 04/12/23 Previous Rx's Medication Instructions Recorded diclofenac sodium 1 % topical gel 4 g topical QID #100 grams 07/23/21 (Voltaren Arthritis Pain) sucralfate 1 gram tablet 1 g PO AC & HS #120 tabs 07/23/21 Allergies Allergy/AdvReac Type Severity Reaction Status Date / Time codeine AdvReac Mild Verified 04/12/23 18:35 diltiazem AdvReac Mild Verified 04/12/23 18:35 epinephrine AdvReac Mild Verified 04/12/23 18:35 lisinopril AdvReac Mild cough Verified 04/12/23 18:35 pollen extracts AdvReac Verified 04/12/23 18:35 General Stated Complaint: SOB LACEY: 3 Review of Systems Narrative: see hpi PFSH All Active Problems (Updated 04/12/23 @ 23:33 by Magdalene Galvez MD) Acute bronchospasm (Acute) Shortness of breath (Acute) Elevated liver transaminase level (Acute) Hyperglycemia due to diabetes mellitus (Acute) BRBPR (bright red blood per rectum) (Acute) Hypomagnesemia (Acute) Acute on chronic diastolic CHF (congestive heart failure), NYHA class 2 (Chronic) Cervical disc herniation (Chronic) Diabetes mellitus (Chronic) S/P TAVR (transcatheter aortic valve replacement) (Acute) Anemia (Acute) Active Problem List Acute on chronic diastolic CHF (congestive heart failure), NYHA class 2 (Chronic) Cervical disc herniation (Chronic) Diabetes mellitus (Chronic) S/P TAVR (transcatheter aortic valve replacement) (Acute) Anemia (Acute) Medical History Acute cholecystitis Aortic stenosis Atherosclerotic cardiovascular disease BP (high blood pressure) Closed fracture of left distal fibula (03/31/19) Degenerative joint disease of right knee Paroxysmal atrial fibrillation Spinal stenosis Surgical History H/O esophagogastroduodenoscopy (~2019) History of cataract surgery History of hysterectomy S/P colonoscopy (~2019) Social History Smoking/Tobacco Use Status: Never Smoking risk assessment performed?: Yes Alcohol Intake: never Drug use: Never Substance use type: does not use What type of physical activity do you participate in: additional Details: PT to start Do you feel safe at home: Yes Do you feel safe in your relationship?: Yes Exam Narrative Exam Narrative: Patient is a well-developed well-nourished female who is slightly over overweight. She is mildly hypertensive. He is afebrile. She is not a tachycardic. He is able to speak in full sentences. Oxygen saturation is 95% on room air Const General: cooperative, healthy appearing, comfortable, no acute distress, well developed, well groomed and well hydrated Nutritional Appearance: well nourished and overweight Orientation: alert, awake and oriented x3 HENMT Head: normal to inspection, normocephalic and atraumatic Ears: hearing grossly normal bilaterally and external ears normal General nose exam: external nose normal, nares normal and no nasal discharge Face and sinus: normal facial exam, sinuses nontender and face symmetric Mouth: oral mucosae normal, lip normal, tongue normal, oropharynx normal, moist mucous membranes and other (Normal phonation. The patient is handling secretions.) Throat: posterior oropharynx normal and uvula midline Eyes General: appearance normal, both eyes and all related structures Eyelids: eyelids normal Conjunctivae: conjunctivae normal Sclera: sclerae normal Cornea: corneas normal Pupils: PERRL EOM: EOM intact bilaterally and No nystagmus Neck Neck: normal visual inspection, full ROM, no lymphadenopathy, no meningeal signs, trachea midline and supple Lymphatic: no lymphadenopathy noted Chest Chest: normal inspection of the chest Resp Effort & Inspection: normal respiratory effort, able to speak in complete sentences, no audible wheezes, no nasal flaring, no respiratory distress, no retractions, no stridor, not tachypneic, no tracheal deviation, no use of accessory muscles and prolonged expiratory phase Auscultation: no rales, no rhonchi and wheezes expiratory wheezes and scattered wheezes (Diffuse) Cardio Jugular venous pressure: no JVD Palpation: normal PMI Rate: regular rate Rhythm: regular rhythm Heart Sounds: S1 normal, S2 normal, no gallops and no rubs Pulses: dorsalis pedis present Other: The patient has a 3/6 stock ejection murmur at the left sternal border radiating to the carotids. No significant peripheral edema GI Inspection: non-distended Palpation: soft, no hepatosplenomegaly, no guarding and nontender Percussion: normal to percussion Auscultation: normal bowel sounds Other: The patient has well-healed surgical scars consistent with her previous laparoscopic incisions and percutaneous drain General: No CVA tenderness Back/Spine/Pelvis Back: no CVA tenderness and No back tenderness Cervical Spine: normal cervical lordosis, cervical ROM normal, No cervical muscular tenderness, No pain with cervical ROM, No cervical spinal tenderness and No step off deformity Thoracic/Lumbar Spine: thoracic and lumbar spine normal to inspection, No thoracic spinal tenderness and No lumbar spinal tenderness Skin General skin exam: no rashes or lesions noted, turgor normal, no petechiae, no purpura and other (Skin is normal for ethnicity.) Lesions: no lesions Rashes: no rashes Trauma: no lacerations or abrasions Neuro General: patient alert, patient awake, patient oriented x3, moves all extremities, no meningeal signs, no focal motor deficits and CN's II-XI intact bilaterally Cranial Nerves: CN's II-XI intact bilaterally, PERRL, accommodation normal, EOM intact bilaterally, no nystagmus, facial strength normal, tongue midline, hearing normal and no nystagmus Cognition: normal cognition Speech: speech normal Motor: muscle tone normal throughout and strength 5/5 throughout Sensory Exam: no sensory deficits noted Extrem General: full ROM, capillary refill normal, no clubbing, cyanosis or edema and no calf tenderness Other: The patient has a usually arthritic pain in her hands. No significant peripheral edema cyanosis or clubbing Psych Appearance: grossly normal Affect: normal affect Attitude: cooperative Thought Process: normal Thought Content: normal Insight: insight good Judgment: judgment good Other: The patient appears to have capacity make medical decisions. Course There is no evidence of congestive heart failure on the chest CT or the chest x- ray. The patient does have a slightly elevated BNP which may be normal for her age and which has been elevated in the past. Clinically she does not have signs of heart failure so we will not give her any diuretics. We are awaiting her repeat troponin Reevaluation(s) Time: 23:19 Reevaluation: Patient feels much improved. She inhaler chest pain. She p.o. I have advised her she may need with primary care provider if she her symptoms. I have advised her to consider albuterol puffs, every 4 hours as needed for wheezing or cough. I have advised her to be reevaluated alcohol and acetaminophen. I have advised to return here if she develops any new or worsening symptoms. I have advised her to ask her primary care provider about a sliding scale insulin regimen. She voiced understanding agreement with the discharge plan. All questions and concerns were addressed prior to discharge Vital Signs Vital signs: Vital Signs Temperature 36.4 C L 04/12/23 18:32 Pulse 83 04/12/23 18:32 Respiratory Rate 20 04/12/23 18:32 Blood Pressure 169/75 H 04/12/23 18:32 Pulse Oximetry 95 04/12/23 18:32 Temperature 36.4 C L 04/12/23 18:32 Temperature Source Skin 04/12/23 18:32 Pulse 83 04/12/23 18:32 Respiratory Rate 20 04/12/23 18:32 Blood Pressure 169/75 H 04/12/23 18:32 Blood Pressure Position Sitting 04/12/23 18:32 Pulse Oximetry 95 04/12/23 18:32 Oxygen Delivery Method Room Air 04/12/23 18:32 Oxygen Flow Rate 0 04/12/23 18:32 Pain Level 10 04/12/23 18:32 Comment back and chest 04/12/23 18:32 Lab/Test Results Lab/Test Results: Mild elevation in BNP which is chronic normal for her age. It is hyperglycemia, hypomagnesemia, chronically elevated transaminases. elevated total bilirubin. Critical Care Time Critical Care Time Critical Care Time: Yes Total Critical Care Time: 48 Attestation: This includes time at bedside, review of old records and EKGs. Reviewed radiographs. Reassessment of patient.
[2023-04-12] MEDS: Albuterol/Ipratropium 3 ML UPD VIAL UPD ×2 (19:24)
[2023-04-12] MEDS: Aspirin 81 MG CHEW 324 MG CH (19:24)
[2023-04-12 20:01] LABS: Abs Immature Grans 0.01 10^3/uL (0.0-0.06); Absolute Basophil Count 0.02 10^3/uL (0.0-0.2); Absolute Eosinophil Count 0.02 10^3/uL (0.0-0.7); Absolute Lymphocyte Count 0.75 10^3/uL (1.2-3.4); Absolute Monocyte Count 0.38 10^3/uL (0.1-0.8); Absolute Neutrophil Count 2.13 10^3/uL (1.2-6.7); Basophils % 0.6; Eosinophils % 0.6; HCT 35.1 % (36.0-46.0); HGB 11.3 g/dL (11.2-15.7); Immature Grans % 0.3; Lymphocytes % 22.7; MCH 27.2 pg (27.0-33.0); MCHC 32.2 % (32.0-36.0); MCV 84 fL (80-95); MPV 10.9 fL (8.0-11.0); Monocytes % 11.5; Neutrophils % 64.3; Platelet Count 128 10^3/uL (130-400); RBC 4.16 10^6/uL (3.93-5.22); RDW 14.1 % (11.7-14.6); RDW-SD 43.6 fL; WBC 3.31 10^3/uL (4.4-10.8)
[2023-04-12 20:19] LABS: ALT 74 U/L (14-59); AST 60 U/L (15-37); Albumin 3.5 g/dL (3.4-5.0); Alkaline Phosphatase 120 U/L (46-116); Anion Gap 9.8 mmol/L (3-11); BUN 13 mg/dL (7-18); Bilirubin, Total 1.2 mg/dL (0.2-1.0); CO2 26.2 mmol/L (21.0-32.0); Calcium 8.3 mg/dL (8.5-10.1); Chloride 102 mmol/L (98-107); Estimated GFR 56.25 (mL/min/1.73m2); Glucose 303 mg/dL (74-106); Magnesium 1.6 mg/dL (1.8-2.4); NT-proBNP 595 pg/mL (<300); Potassium 3.7 mmol/L (3.5-5.1); Sodium 138 mmol/L (136-145); Total Protein 6.8 g/dL (6.4-8.2); Troponin I < 50 ng/L (<or=60)
[2023-04-12 20:33] LABS: COVID-19 PCR Negative (Negative); Influenza A PCR Negative (Negative); Influenza B PCR Negative (Negative); RSV PCR Negative (Negative)
--- NOTE | 2023-04-12 20:36 | DI.VRAD_ITS ---
PROCEDURE INFORMATION: Exam: XR Chest Exam date and time: 04/12/2023 8:14 PM Age: 82 years old Clinical indication: Cough and shortness of breath TECHNIQUE: Imaging protocol: Radiologic exam of the chest. Views: 2 views. COMPARISON: CR XR PORTABLE CHEST AP 07/22/2021 11:21 AM FINDINGS: Lungs: Unremarkable. No consolidation. Pleural spaces: Unremarkable. No pleural effusion. No pneumothorax. Heart/Mediastinum: Prosthetic aortic valve noted. Bones/joints: Moderate degenerative changes in the spine and shoulders. IMPRESSION: No acute disease Dictated and Authenticated by: Yonis Ruby MD. Ordering:CARMEN Del Castillo MD
[2023-04-12 20:38] LABS: Source NASOPHARYNX
[2023-04-12 20:44] LABS: D-Dimer 871 ng/mlFEU (<500)
--- NOTE | 2023-04-12 21:01 | DI.CT_ITS ---
Exam(s) CT CHEST PE ABD PELVIS W EXAM: CT CHEST PE ABD PELVIS W CLINICAL HISTORY: CP SOB elevated D dimer. TECHNIQUE: Imaging Protocol: Axial CT angiography was performed with multi-slice acquisition and m ulti-planar and/or 3D reconstructions. CONTRAST MATERIAL: Intravenous: Omnipaque 350 Contrast volume:100 ml Oral: None COMPARISON: CT CT CHEST PE ABD PELVIS W from 07/22/2021 FINDINGS: CHEST: PULMONARY ARTERIES: There are no intra-arterial filling defects to suggest the presence of acute pulm onary emboli. LUNGS: There is no evidence of pulmonary infarction. There are no pleural effusions. MEDIASTINUM: There is no hilar nor mediastinal adenopathy. There are prominent nodules in the left th yroid lobe. CARDIAC: Aortic valve TAVR noted. Heart size upper normal. No pericardial effusion.Diameter of the ascending thoracic aorta is normal. No dissection evident. OSSEOUS: No significant osseous lesions.No fractures.. ABDOMEN: There is no ascites. LIVER: There are no focal hepatic lesions nor dilatation of intrahepatic ducts. GALLBLADDER/BILIARY: The gallbladder surgically absent. CBD is not dilated. PANCREAS: No evidence of pancreatic mass nor dilatation of the pancreatic duct. SPLEEN: Spleen size upper normal. There is a 1 cm hypodensity in the spleen which is probably a cyst or hemangioma. Unchanged from CT scan of June 2021 splenic and portal veins are patent. ADRENALS: There are no significant adrenal masses. KIDNEYS:No cysts evident. No calculi nor obvious hydronephrosis. No solid renal masses. Symmetrical perinephric streaking noted. ABDOMINAL AORTA: Calcified but not enlarged. LYMPH NODES: There is no retroperitoneal or para-aortic adenopathy. ABDOMINAL WALL/GI: No evidence of significant anterior abdominal wall hernia. No bowel obstruction. PELVIS: LYMPH NODES: There is no intrapelvic nor inguinal adenopathy. GI: No evidence of appendicitis.There are sigmoid diverticuli but no evidence of obvious acute divert iculitis. URINARY BLADDER: No calculi nor masses evident REPRODUCTIVE: Uterus surgically absent. No abnormal adnexal masses. No free fluid in the pelvis. OSSEOUS: No significant osseous lesions.. Advanced disc space narrowing L4-5 level. Also Schmorl's node invagination in the superior endplate of L2. No true compression fractures evident. . IMPRESSION: 1. No evidence of acute pulmonary emboli nor pulmonary infarction. 2. No evidence of aortic aneurysm nor dissection. Aortic valve TAVR noted. No pericardial effusion. 3. Previous cholecystectomy and hysterectomy. No bowel obstruction RADIATION DOSE DELIVERED: 1,304.13mGy.cm Total DLP DATA REPOSITORY: All CT scans at this facility are submitted to the National Radiology Data Registry (NRDR) Dose Index Registry (DIR) with the [employer] (A[employer]). RADIATION OPTIMIZATION: All CT scans at this facility use at least one of these dose optimization te chniques: automated exposure control; mA and/or kV adjustment per patient size (includes targeted exa ms where dose is matched to clinical indication); or iterative reconstruction.
[2023-04-12] MEDS: Normal Saline 1,000 ML 125 ML IV (21:14)
[2023-04-12] MEDS: MAGNESIUM SULFATE 1 GM/100 ML BAG IVPB (21:15)
[2023-04-12] MEDS: Normal Saline Flush 10 ML SYR IVP (21:17)
[2023-04-12] MEDS: Omnipaque 350 MG/ML 100 ML BTL IJ (21:18)
[2023-04-12] MEDS: Normal Saline - Diluent 50 ML VIAL IJ (21:18)
--- NOTE | 2023-04-12 22:00 | RT.EKG_ITS ---
APPROVED REPORT Exam: Resting ECG Reason for Exam: Patient Location: E HR:103 bpm ECG Measurements Heart Rate 103 AXIS MN 147 P 29 QRSd 158 QRS -56 QT 434 T -14 QTc 568 Conclusion Sinus tachycardia...rate> 99 RBBB and LAFB...QRSd >120mS, axis(-40,240) bifasicular block as above. LAD, poor r wave progression, no significant change from previous.
--- NOTE | 2023-04-12 22:00 | DI.VRAD_ITS ---
PROCEDURE INFORMATION: Exam: CTA Chest With Contrast CTA Abdomen With Contrast Exam date and time: 04/12/2023 9:30 PM Age: 82 years old Clinical indication: Other: Cp SOB elevated d dimer elevated lft; Difficulty breathing or dyspnea; Prior surgery; Surgery date: 6+ months; Surgery type: Stent TECHNIQUE: Imaging protocol: Computed tomographic angiography of the chest with contrast. Exam focused on the arteries. Computed tomographic angiography of the abdomen with contrast. Exam focused on the arteries. 3D rendering (Not supervised by radiologist): MIP and/or 3D reconstructed images were created by the technologist. Contrast material: OMNIPAQUE 350; Contrast volume: 100 ml; Contrast route: INTRAVENOUS (IV); COMPARISON: CT CHEST PE ABD PELVIS W 07/22/2021 12:08 PM FINDINGS: VASCULATURE: Pulmonary arteries: Normal. No pulmonary emboli. Aorta: Prosthetic aortic and mitral valves noted. Dense atherosclerotic calcification throughout the aorta and iliac arteries. No evidence of aortic aneurysm or dissection. Celiac trunk and mesenteric arteries: No occlusion or significant stenosis. Renal arteries: No occlusion or significant stenosis. CHEST: Lungs: Unremarkable. No consolidation. No masses. Pleural spaces: Unremarkable. No pneumothorax. No pleural effusion. Heart: Unremarkable. No cardiomegaly. No pericardial effusion. Coronary arteries: Moderate coronary artery calcifications. ABDOMEN AND PELVIS: Liver: No mass. Gallbladder and bile ducts: Gallbladder is surgically absent. Pancreas: Unremarkable. No mass. No ductal dilation. Spleen: Unremarkable. No splenomegaly. Adrenal glands: Unremarkable. No mass. Kidneys and ureters: Unremarkable. No solid mass. No hydronephrosis. Stomach and bowel: Unremarkable. No obstruction. No mucosal thickening. Intraperitoneal space: Unremarkable. No free air. No significant fluid collection. Reproductive: Uterus is surgically absent. No adnexal abnormality. Lymph nodes: Unremarkable. No enlarged lymph nodes. Bones/joints: Moderate degenerative changes throughout the spine. No acute fracture or vertebral body compression. Soft tissues: Unremarkable. IMPRESSION: 1. No evidence of pulmonary embolus 2. No evidence of aortic aneurysm or dissection. Moderate atherosclerotic changes noted. No severe stenosis of the celiac, mesenteric or renal arteries evident. Dictated and Authenticated by: Yonis Ruby MD. Ordering:CARMEN Del Castillo MD
[2023-04-12 23:03] LABS: Bilirubin Negative (Negative); Blood Moderate (Negative); Clarity Clear (Clear); Glucose 500 mg/dL (Negative); Ketones 15 mg/dL (Negative); Leukocyte Esterase Negative (Negative); Nitrite Negative (Negative); Specific Gravity <= 1.005 (1.005-1.025); Urobilinogen 0.2 mg/dL (Up to 0.2); pH 5.5 (5-8)
[2023-04-12 23:08] LABS: Troponin I 54 ng/L (<or=60)
[2023-04-12 23:15] LABS: Bacteria Moderate HPF (Negative); C & S Indicated? No/Sq. Contamination; Casts Negative LPF (Negative); Crystals Negative HPF (Negative); Epithelial Cells Moderate HPF (Negative); Mucus Negative (Negative); WBC 0-2 HPF (0-5)
--- NOTE | 2023-04-12 23:50 | NUR.NOTE ---
Referral made to [facility] per Dr. Galvez for bright red blood in the rectum to be scheduled PREETI. Put the referral in the health care marketing manager's box for follow up assistance. Nursing Note:
== END 2023-04-13 00:26 | disposition home or self-care (01) ==
PROVIDERS: Emergency Provider Emergency Medicine Emergency Medical Services; PCP Family Medicine
DX: E11.65 Type 2 diabetes mellitus with hyperglycemia (principal); R06.02 Shortness of breath; K62.5 Hemorrhage of anus and rectum; E83.42 Hypomagnesemia; R74.01 Elevation of levels of liver transaminase levels; J98.01 Acute bronchospasm; Z95.2 Presence of prosthetic heart valve
CPT/HCPCS: 71275; 74177; 80053; 87637; 93005; 96361; 96365; 99291; 71046; 81003; 81015; 83735; 83880; 84484; 85025; 85379; 93010; J3475; J3490; J7620

== ENCOUNTER → 2023-04-16 13:37 | Outpatient (BNVA) | payer MEDICARE, SELFPAY | PROVIDERS: PCP Family Medicine; Referring Provider Family Medicine; Visit Provider Surgery | DX: K62.5 Hemorrhage of anus and rectum (principal) | CPT/HCPCS: 99213 ==

== ENCOUNTER → 2023-05-22 01:25 | Outpatient (CLI) | payer MEDICARE, SELFPAY ==
--- NOTE | 2023-05-22 14:49 | DI.RAD_ITS ---
Exam(s) XR SHOULDER LT COMPLETE 2+V EXAM: XR SHOULDER LT COMPLETE 2+V CLINICAL HISTORY: LT SHOULDER PAIN, M25.512. TECHNIQUE: 2D digital imaging was performed of the left shoulder. Five images were obtained. AP, G rashey, Y-view and axillary views were obtained. COMPARISON: No exams were available for comparison FINDINGS: BONES: No acute fracture is present. No bony destructive lesion is seen. JOINTS: No dislocation present. Degenerative changes are seen at both the acromioclavicular and gleno humeral joints. SOFT TISSUE: Normal. IMPRESSION: Degenerative changes of the left shoulder. DATA REPOSITORY: RADIATION DOSE DELIVERED:
== END ==
PROVIDERS: PCP Family Medicine; Visit Provider Family Medicine
DX: M19.012 Primary osteoarthritis, left shoulder (principal)
CPT/HCPCS: 73030

== ENCOUNTER 2023-12-25 09:59 | Emergency (ER) | payer MEDICARE, SELFPAY ==
[2023-12-25 10:17] VITALS: BP 160/47; PULSE 92; RESP 15; TEMP 36.6; O2SAT 96
--- NOTE | 2023-12-25 11:29 | ED.GENADUL_ITS ---
Discharge Plan Discharge Details Chief Complaint: Nk/Back Pain Primary Care Provider: Regis Muller ED Provider: Natalee Mckeon Home Meds and New Rx's Prescriptions: No Action ferrous gluconate 324 mg (37.5 mg iron) tablet 324 mg PO DAILY amiodarone [Pacerone] 200 mg tablet 200 mg PO BID insulin glargine [Lantus U-100 Insulin] 100 UNITS/ML solution 25 unit Sub-Q BID Humalog U-100 Insulin 100 UNIT/ML cartridge 15 unit Sub-Q TID ascorbic acid (vitamin C) [Vitamin C] 1,000 mg Tablet 1,000 mg PO DAILY Multi For Her 18 mg iron-600 mcg-40 mcg Capsule 1 tab-cap PO DAILY pantoprazole [Protonix] 40 mg Tablet,Delayed Release (Dr/Ec) 40 mg PO BID rosuvastatin 20 mg Tablet 20 mg PO HS clopidogrel [Plavix] 75 mg tablet 75 mg PO DAILY metoprolol succinate 100 mg tablet extended release 24 hr 200 mg PO QHS amitriptyline 10 mg tablet 10 mg PO DIRECTED Patient Comments: TAKE ONE-HALF TO TWO TABLETS BY MOUTH AT BEDTIME Rx Instructions: 1/2 -2 tablets every night metronidazole 0.75 % cream 1 applic TOPICAL BID Patient Comments: APPLY A SMALL AMOUNT TO AFFECTED AREA TWICE A DAY glipizide 5 mg tablet 5 mg PO DAILY Patient Comments: TAKE ONE TABLET BY MOUTH EVERY DAY sucralfate 1 gram Tablet 1 g PO AC & HS Qty: 120 0RF vitamin B complex [B Complex-Vitamin B12] 1 EACH tablet 1 ea PO DAILY cholecalciferol (vitamin D3) [Vitamin D3] 1,000 UNIT capsule 1,000 unit PO DAILY losartan 100 MG tablet 100 mg PO HS HPI General Date/Time Provider Initiated Documentation: 12/25/23 10:08 . Related Data Home Medications Medication Instructions Recorded Confirmed insulin glargine 100 unit/mL 25 unit subcut BID 11/28/15 12/25/23 subcutaneous solution (Lantus U-100 Insulin) insulin lispro 100 unit/mL 15 unit subcut TID 11/28/15 12/25/23 subcutaneous cartridge (Humalog U-100 Insulin) cholecalciferol (vitamin D3) 25 1,000 unit PO DAILY 01/30/18 12/25/23 mcg (1,000 unit) capsule (Vitamin D3) losartan 100 mg tablet 100 mg PO HS 01/30/18 12/25/23 vitamin B complex (B 1 ea PO DAILY 01/30/18 12/25/23 Complex-Vitamin B12 tablet) ascorbic acid (vitamin C) 1,000 mg 1,000 mg PO DAILY 04/14/20 12/25/23 tablet (Vitamin C) [id number] fumarate 18 1 tab-cap PO DAILY 04/14/20 12/25/23 mg-FA 600 mcg-vit K 40 mcg capsule (Multi For Her) pantoprazole 40 mg tablet,delayed 40 mg PO BID 06/10/20 12/25/23 release (Protonix) rosuvastatin 20 mg tablet 20 mg PO HS 06/10/20 12/25/23 amiodarone 200 mg tablet (Pacerone) 200 mg PO BID 11/05/20 12/25/23 clopidogrel 75 mg tablet (Plavix) 75 mg PO DAILY 11/05/20 12/25/23 ferrous gluconate 324 mg (37.5 mg 324 mg PO DAILY 11/05/20 12/25/23 iron) tablet amitriptyline 10 mg tablet 10 mg PO DIRECTED 07/22/21 12/25/23 glipizide 5 mg tablet 5 mg PO DAILY 07/22/21 12/25/23 metoprolol succinate 100 mg 200 mg PO QHS 07/22/21 12/25/23 tablet,extended release 24 hr metronidazole 0.75 % topical cream 1 applic topical BID 07/22/21 12/25/23 sucralfate 1 gram tablet 1 g PO AC & HS #120 tabs 07/23/21 12/25/23 Previous Rx's Medication Instructions Recorded sucralfate 1 gram tablet 1 g PO AC & HS #120 tabs 07/23/21 Allergies Allergy/AdvReac Type Severity Reaction Status Date / Time codeine AdvReac Mild Verified 04/16/23 13:51 diltiazem AdvReac Mild Verified 04/16/23 13:51 epinephrine AdvReac Mild Verified 04/16/23 13:51 lisinopril AdvReac Mild cough Verified 04/16/23 13:51 pollen extracts AdvReac Verified 04/16/23 13:51 General Stated Complaint: Nk/Back Pain LACEY: 3 Course Vital Signs Vital signs: Vital Signs Temperature 36.6 C 12/25/23 10:17 Pulse 92 H 12/25/23 10:17 Respiratory Rate 15 12/25/23 10:17 Blood Pressure 160/47 H 12/25/23 10:17 Pulse Oximetry 96 12/25/23 10:17 Temperature 36.6 C 12/25/23 10:17 Temperature Source Temporal Artery Scan 12/25/23 10:17 Pulse 92 H 12/25/23 10:17 Respiratory Rate 15 12/25/23 10:17 Blood Pressure 160/47 H 12/25/23 10:17 Blood Pressure Position Sitting 12/25/23 10:17 Pulse Oximetry 96 12/25/23 10:17 Pain Level 10 12/25/23 10:17 Medical Decision Making Shannan is an 83-year-old female with history of T2DM, TAVR, CHF, and chronic lumbar back pain who presents to the emergency department for evaluation of worsening intensity and duration of lower back pain. She reports this has been ongoing for the last month, says it came on rather suddenly. This is described as upper lower back pain that sometimes radiates to the left or right side. Does not radiate down the leg or buttocks. It occurs every day or so, is alleviated with rest and 15 minutes of heat. She is not in any pain at this time. This back pain is not accompanied by any fever or chills, chest pain, shortness of breath, abdominal pain, change in p.o. intake, nausea/vomiting, change in bowel or bladder function, dysuria, leg weakness, gait change, numbness to her lower legs, color change to lower legs, or saddle anesthesia. Denies history of spinal surgeries or instrumentation. She does have a history of lower back pain, says that she had similar discomfort a few years ago that resolved with rest and heat, was worsened by physical therapy. Quality:SDOH Health Related Social Needs: No Data to Display PFSH All Active Problems (Updated 05/14/23 @ 00:06 by MILLICENT DOUGLAS) Exposure to COVID-19 virus (Acute ~04/12/23) Acute on chronic diastolic CHF (congestive heart failure), NYHA class 2 (Chronic) Cervical disc herniation (Chronic) Diabetes mellitus (Chronic) S/P TAVR (transcatheter aortic valve replacement) (Acute) Anemia (Acute) Medical History Acute cholecystitis Aortic stenosis Atherosclerotic cardiovascular disease BP (high blood pressure) Closed fracture of left distal fibula (03/31/19) Degenerative joint disease of right knee Paroxysmal atrial fibrillation Spinal stenosis Surgical History H/O esophagogastroduodenoscopy (~2019) History of cataract surgery History of hysterectomy S/P colonoscopy (~2019) Social History Smoking/Tobacco Use Status: Never Smoking risk assessment performed?: Yes Alcohol Intake: never Drug use: Never Substance use type: does not use What type of physical activity do you participate in: additional Details: PT to start Do you feel safe at home: Yes Do you feel safe in your relationship?: Yes
[2023-12-25 12:37] LABS: Anion Gap 8.7 mmol/L (3-11); BUN 21 mg/dL (7-18); CO2 27.3 mmol/L (21.0-32.0); CREATININE 1.1 mg/dL (0.55-1.02); Chloride 105 mmol/L (98-107); Estimated GFR 49.86 (mL/min/1.73m2); Glucose 319 mg/dL (74-106); Sodium 141 mmol/L (136-145)
--- NOTE | 2023-12-26 10:06 | NUR.NOTE ---
Accessed chart to determine the xray orders and whether or not the patient was seen at this visit. Per Dr. Tam, pt not seen at this visit xrays cancelled. Nursing Note:
== END 2023-12-25 10:46 ==
PROVIDERS: Emergency Provider Nurse Practitioner Family; PCP Family Medicine
DX: M54.50 Low back pain, unspecified (principal); Z53.21 Procedure and treatment not carried out due to patient leaving prior to being seen by health care provider
CPT/HCPCS: 80048

== ENCOUNTER 2023-12-25 10:54 | Emergency (ER) | payer MEDICARE, SELFPAY ==
[2023-12-25 11:00] VITALS: BP 184/73; PULSE 84; RESP 20; TEMP 37.1; O2SAT 97
--- NOTE | 2023-12-25 13:26 | DI.RAD_ITS ---
Exam(s) XR LUMBAR SPINE COMPLETE EXAM: XR LUMBAR SPINE COMPLETE CLINICAL HISTORY: lower back pain, worsening. TECHNIQUE: 2D digital imaging was performed. Five views. COMPARISON: CT CT CHEST PE ABD PELVIS W from 04/12/2023 FINDINGS: BONES: No fracture or destructive lesion. Vertebral body heights are maintained. Facet joint degener ative changes present throughout, greatest at L4-5 and L5-S1. DISKS: Disc space narrowing at L 4 5 and L5-S1. ALIGNMENT: Lumbar spinal alignment is within normal limits. No spondylolysis or spondylolisthesis. SOFT TISSUE: The aorta is heavily calcified. IMPRESSION: Degenerative changes. No acute abnormality. DATA REPOSITORY: RADIATION DOSE DELIVERED:
--- NOTE | 2023-12-25 13:52 | ED.GENADUL_ITS ---
Discharge Plan Disposition Patient Disposition: Home Condition: Good Discharge Details Clinical Impression: Acute lumbar back pain Primary Care Provider: Regis Muller ED Provider: Natalee Mckeon Home Meds and New Rx's Prescriptions: Continued ferrous gluconate 324 mg (37.5 mg iron) tablet 324 mg PO DAILY amiodarone [Pacerone] 200 mg tablet 200 mg PO BID insulin glargine [Lantus U-100 Insulin] 100 UNITS/ML solution 25 unit Sub-Q BID Humalog U-100 Insulin 100 UNIT/ML cartridge 15 unit Sub-Q TID ascorbic acid (vitamin C) [Vitamin C] 1,000 mg Tablet 1,000 mg PO DAILY Multi For Her 18 mg iron-600 mcg-40 mcg Capsule 1 tab-cap PO DAILY pantoprazole [Protonix] 40 mg Tablet,Delayed Release (Dr/Ec) 40 mg PO BID rosuvastatin 20 mg Tablet 20 mg PO HS clopidogrel [Plavix] 75 mg tablet 75 mg PO DAILY metoprolol succinate 100 mg tablet extended release 24 hr 200 mg PO QHS amitriptyline 10 mg tablet 10 mg PO DIRECTED Patient Comments: TAKE ONE-HALF TO TWO TABLETS BY MOUTH AT BEDTIME Rx Instructions: 1/2 -2 tablets every night metronidazole 0.75 % cream 1 applic TOPICAL BID Patient Comments: APPLY A SMALL AMOUNT TO AFFECTED AREA TWICE A DAY glipizide 5 mg tablet 5 mg PO DAILY Patient Comments: TAKE ONE TABLET BY MOUTH EVERY DAY sucralfate 1 gram Tablet 1 g PO AC & HS Qty: 120 0RF vitamin B complex [B Complex-Vitamin B12] 1 EACH tablet 1 ea PO DAILY cholecalciferol (vitamin D3) [Vitamin D3] 1,000 UNIT capsule 1,000 unit PO DAILY losartan 100 MG tablet 100 mg PO HS Discharge Instructions Additional Instructions: Please follow-up with your primary care provider tomorrow as scheduled. I encourage you to continue using lidocaine patches for discomfort. You may also use heating pads, but these are not to be used over the lidocaine patches. Return to emergency care if you notice any concerning symptoms such as numbness in your underwear area, change in bowel or bladder function, new leg weakness or numbness, or if you have high fevers associated with the back pain. Referrals: Regis Muller MD [Primary Care Provider] - [facility] General Date/Time Provider Initiated Documentation: 12/25/23 12:04 . HPI Narrative: Shannan is an 83-year-old female with history of T2DM, TAVR, CHF, and chronic lumbar back pain who presents to the emergency department for evaluation of worsening intensity and duration of lower back pain. She reports this has been ongoing for the last month, says it came on rather suddenly. This is described as upper lower back pain that sometimes radiates to the left or right side. Does not radiate down the leg or buttocks. It occurs every day or so, is alleviated with rest and 15 minutes of heat. She is not in any pain at this time. This back pain is not accompanied by any fever or chills, chest pain, shortness of breath, abdominal pain, change in p.o. intake, nausea/vomiting, change in bowel or bladder function, dysuria, leg weakness, gait change, numbness to her lower legs, color change to lower legs, or saddle anesthesia. Denies history of spinal surgeries or instrumentation. She does have a history of lower back pain, says that she had similar discomfort a few years ago that resolved with rest and heat, was worsened by physical therapy. Related Data Home Medications Medication Instructions Recorded Confirmed insulin glargine 100 unit/mL 25 unit subcut BID 11/28/15 12/25/23 subcutaneous solution (Lantus U-100 Insulin) insulin lispro 100 unit/mL 15 unit subcut TID 11/28/15 12/25/23 subcutaneous cartridge (Humalog U-100 Insulin) cholecalciferol (vitamin D3) 25 1,000 unit PO DAILY 01/30/18 12/25/23 mcg (1,000 unit) capsule (Vitamin D3) losartan 100 mg tablet 100 mg PO HS 01/30/18 12/25/23 vitamin B complex (B 1 ea PO DAILY 01/30/18 12/25/23 Complex-Vitamin B12 tablet) ascorbic acid (vitamin C) 1,000 mg 1,000 mg PO DAILY 04/14/20 12/25/23 tablet (Vitamin C) [id number]-[id number]-wrgq fumarate 18 1 tab-cap PO DAILY 04/14/20 12/25/23 mg-FA 600 mcg-vit K 40 mcg capsule (Multi For Her) pantoprazole 40 mg tablet,delayed 40 mg PO BID 06/10/20 12/25/23 release (Protonix) rosuvastatin 20 mg tablet 20 mg PO HS 06/10/20 12/25/23 amiodarone 200 mg tablet (Pacerone) 200 mg PO BID 11/05/20 12/25/23 clopidogrel 75 mg tablet (Plavix) 75 mg PO DAILY 11/05/20 12/25/23 ferrous gluconate 324 mg (37.5 mg 324 mg PO DAILY 11/05/20 12/25/23 iron) tablet amitriptyline 10 mg tablet 10 mg PO DIRECTED 07/22/21 12/25/23 glipizide 5 mg tablet 5 mg PO DAILY 07/22/21 12/25/23 metoprolol succinate 100 mg 200 mg PO QHS 07/22/21 12/25/23 tablet,extended release 24 hr metronidazole 0.75 % topical cream 1 applic topical BID 07/22/21 12/25/23 sucralfate 1 gram tablet 1 g PO AC & HS #120 tabs 07/23/21 12/25/23 Previous Rx's Medication Instructions Recorded sucralfate 1 gram tablet 1 g PO AC & HS #120 tabs 07/23/21 Allergies Allergy/AdvReac Type Severity Reaction Status Date / Time codeine AdvReac Mild Verified 04/16/23 13:51 diltiazem AdvReac Mild Verified 04/16/23 13:51 epinephrine AdvReac Mild Verified 04/16/23 13:51 lisinopril AdvReac Mild cough Verified 04/16/23 13:51 pollen extracts AdvReac Verified 04/16/23 13:51 General Stated Complaint: Nk/Back Pain LACEY: 3 Review of Systems Narrative: see HPI Exam Const General: cooperative, healthy appearing, comfortable, no acute distress and well developed Nutritional Appearance: average body habitus Resp Effort & Inspection: normal respiratory effort and able to speak in complete sentences Auscultation: clear to auscultation bilaterally Cardio Rate: regular rate Rhythm: regular rhythm GI Inspection: normal to inspection and no visible pulsation Palpation: soft, no masses, no pulsatile masses and nontender Back/Spine/Pelvis Thoracic/Lumbar Spine: thoracic and lumbar spine normal to inspection and No paraspinal tenderness Skin General skin exam: no rashes or lesions noted Neuro Cognition: normal cognition Speech: speech normal Gait: normal gait Motor: muscle tone normal throughout and strength 5/5 throughout Sensory Exam: no sensory deficits noted DTR's: Rt Patellar: 2+ and Lt Patellar: 2+ Course Vital Signs Vital signs: Vital Signs Temperature 37.1 C 12/25/23 11:00 Pulse 84 12/25/23 11:00 Respiratory Rate 20 12/25/23 11:00 Blood Pressure 184/73 H 12/25/23 11:00 Pulse Oximetry 97 12/25/23 11:00 Temperature 37.1 C 12/25/23 11:00 Temperature Source Oral 12/25/23 11:00 Pulse 84 12/25/23 11:00 Respiratory Rate 20 12/25/23 11:00 Respiratory Effort Normal 12/25/23 11:02 Blood Pressure 184/73 H 12/25/23 11:00 Pulse Oximetry 97 12/25/23 11:00 Oxygen Delivery Method Room Air 12/25/23 11:00 Oxygen Flow Rate 0 12/25/23 11:00 Pain Level 10 12/25/23 11:02 Medical Decision Making Shannan is an 83-year-old female with history of T2DM, TAVR, CHF, and chronic lumbar back pain who presents to the emergency department for evaluation of worsening intensity and duration of lower back pain. She reports this has been ongoing for the last month, says it came on rather suddenly. This is described as upper lower back pain that sometimes radiates to the left or right side. Does not radiate down the leg or buttocks. It occurs every day or so, is alleviated with rest and 15 minutes of heat. She is not in any pain at this time. This back pain is not accompanied by any fever or chills, chest pain, shortness of breath, abdominal pain, change in p.o. intake, nausea/vomiting, change in bowel or bladder function, dysuria, leg weakness, gait change, numbness to her lower legs, color change to lower legs, or saddle anesthesia. Denies history of spinal surgeries or instrumentation. She does have a history of lower back pain, says that she had similar discomfort a few years ago that resolved with rest and heat, was worsened by physical therapy. Physical exam reassuring. Easy work of breathing, lung sounds clear bilaterally. Normal heart sounds. Abdomen is soft, nondistended, nontender to palpation with no pulsatile masses. Distal pulses intact bilaterally. 2+ patellar reflexes. Normal gait. Sensation grossly intact to lower extremities. DDx includes was not limited to vertebral compression fracture, muscle spasm, acute on chronic lower back pain. No red flags concerning for acute vascular emergency or serious complication such as CAD equina I independently interpreted the following tests. BMP performed to evaluate kidney function, as patient is concerned that this may be related to her kidneys but does not have any symptoms consistent with UTI. No significant abnormal ities noted, creatinine 1.1 with BUN 21. Lumbar x-ray performed, no acute changes noted. Reviewed discharge instructions with Shannan, including symptomatic management. She does have a follow-up appointment scheduled tomorrow with her PCP. Advise use of lidocaine patches and heat, though these do not to be used together. Reviewed red flags indicate need for return to emergency care. She is agreeable with plan of care. Imaging Data Radiologic Study: Radiologist's impression: Exam(s) XR LUMBAR SPINE COMPLETE EXAM: XR LUMBAR SPINE COMPLETE CLINICAL HISTORY: lower back pain, worsening. TECHNIQUE: 2D digital imaging was performed. Five views. COMPARISON: CT CT CHEST PE ABD PELVIS W from 04/12/2023 FINDINGS: BONES: No fracture or destructive lesion. Vertebral body heights are maintained. Facet joint degenerative changes present throughout, greatest at L4-5 and L5- S1. DISKS: Disc space narrowing at L 4 5 and L5-S1. ALIGNMENT: Lumbar spinal alignment is within normal limits. No spondylolysis or spondylolisthesis. SOFT TISSUE: The aorta is heavily calcified. IMPRESSION: Degenerative changes. No acute abnormality. Quality:SDOH Health Related Social Needs: No Data to Display PFSH All Active Problems (Updated 12/25/23 @ 14:25 by Natalee Claudio) Acute lumbar back pain (Acute) Exposure to COVID-19 virus (Acute ~04/12/23) Acute on chronic diastolic CHF (congestive heart failure), NYHA class 2 (Chronic) Cervical disc herniation (Chronic) Diabetes mellitus (Chronic) S/P TAVR (transcatheter aortic valve replacement) (Acute) Anemia (Acute) Medical History Acute cholecystitis Aortic stenosis Atherosclerotic cardiovascular disease BP (high blood pressure) Closed fracture of left distal fibula (03/31/19) Degenerative joint disease of right knee Paroxysmal atrial fibrillation Spinal stenosis Surgical History H/O esophagogastroduodenoscopy (~2019) History of cataract surgery History of hysterectomy S/P colonoscopy (~2019) Social History Smoking/Tobacco Use Status: Never Smoking risk assessment performed?: Yes Alcohol Intake: never Drug use: Never Substance use type: does not use What type of physical activity do you participate in: additional Details: PT to start Do you feel safe at home: Yes Do you feel safe in your relationship?: Yes
[2023-12-25] MEDS: Lidocaine 5% Patch 1 PATCH TP (14:33)
--- NOTE | 2023-12-26 10:07 | NUR.NOTE ---
Accessed chart to determine xray orders and to make sure pt was evaluated at this visit. She was at this visit and orders left as is. Nursing Note:
== END 2023-12-25 14:50 | disposition home or self-care (01) ==
PROVIDERS: Emergency Provider Nurse Practitioner Family; PCP Family Medicine
DX: M47.816 Spondylosis without myelopathy or radiculopathy, lumbar region (principal); I48.0 Paroxysmal atrial fibrillation; I11.0 Hypertensive heart disease with heart failure; I50.33 Acute on chronic diastolic (congestive) heart failure; E11.9 Type 2 diabetes mellitus without complications; Z79.4 Long term (current) use of insulin; Z79.02 Long term (current) use of antithrombotics/antiplatelets; Z79.84 Long term (current) use of oral hypoglycemic drugs
CPT/HCPCS: 36415; 80048; 99284; 72110

== ENCOUNTER 2024-03-17 14:01 | Emergency (ER) | payer MEDICARE, SELFPAY ==
[2024-03-17 14:07] VITALS: BP 166/67; PULSE 75; RESP 16; TEMP 37; O2SAT 96
--- OUTSIDE RECORDS SUMMARY | 2024-03-17 14:17 | XMS_ITS | Encounter Summary ---
Author Organization [facility] Address [facility] [place] [address] Care Team Providers Care Print Producer Name Role Phone Regis Muller MD Primary Care Provider [phone] Reason for Visit * Consultation (Routine) - Closed Specialty Diagnoses / Procedures Referred By Malini carlson Referred To Contact Gastroenterology Diagnoses Anemia, unspecified Regis Muller MD [address] [place] [address] [facility] [place] [address] [address] Referral ID Status Reason Start Date Expiration Date V isits Requested Visits Authorized [id number] Closed Consult, Test & Treat Connection [facility] PCP Updated and/or Approved 08/11/2021 08/11/2022 12 12 Encounter Details Date Type Department Care Team (Late st Contact Info) Description 10/24/2021 11:00 AM EST Office Visit [place] [address] Eamon Lange MD [facility] [address] [place] [address] Abnormal LFTs; Iron deficiency anemia, unspecified iron deficiency anemia type Social History Tobacco Use Types Packs/Day Years Used Date Smoking Tobacco: Never Smokeless Tobacco: Never Alcohol Use Standard Drinks/Week Comments Not Currently 0 (1 standard drink = 0.6 oz pur e alcohol) occassional Sex and Gender Information Value Date Recorded Sex Assigned at Not on file Gender Identity Not on file Sexual Orientation Not on file documented as of this encounter Last Filed Vital Signs Vital Sign Reading Time Taken Comments Blood Pressure 170/67 10/24/2021 11:17 AM EST running late Pulse 81 10/24/2021 11:17 AM EST Temperature - - Respiratory Rate - - Oxygen Saturation - - Inhaled Oxygen Concentration - - Weight 79.7 kg (175 lb 11.2 oz) 10/24/2021 11:17 AM EST Height - - Body Mass Index 32.14 08/30/2021 10:54 AM EST documented in this encounter Progress Notes * Eamon Lange S - 10/24/2021 11:00 AM EST Images from the original note were not included. 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 Ms. Moody has had a persistent microcytic anemia with anisocytosis for more than a year now. She was found to be iron-deficient in the absence of overt GI bleeding for which she underwent an EGD (08/2020) noting healing esophagitis and an unrevealing colonoscopy (08/2020). It does not appear patient was started on oral iron at that time but she was placed donavan PPI. She had remained anemic and without overt GI bleeding when she was admitted in [facility] with symptomatic anemia requiring transfusion (records not available for review). She was takingPlavix for her CAD at that time. At this point she was started on iron and began having new-onset black stools which she attributed to her oral iron and she was switched to ASA. Her most recent labs (08/30/21) noted a Hb 8.2 (still microcytic with anisocytosis). No recent repeat iron studies at [facility].Stools now remain black on oral iron. Noting some PAUL intermittently when walking stairs but otherwise breathing well and without significant fatigue. She notes some crampy abdominal pain from prior to AM bowel movements but no significant diarrhea. Never sammi red blood in her stool and never an episode of hematemesis. She continues on her once daily Protonix. Denies any dysphagia or odynophagia. She has had some night sweats but she attributes this to hypoglycemic episodes (BG in the 50-60 ranges), currently titrating her long- acting insulin doses. No unintentional weight loss. Patient has also had a chronic, low-level elevation in AP with recent rise in aminotransferases. She denies any RUQ pain, jaundice, or pruritis. No known hx of liver disease. Denies significant EtOH use. PAST MEDICAL HISTORY: Past Medical History: Diagnosis Date ??? Actinic keratosis 08/31/2011 ??? Diabetes ??? Seborrheic keratosis 08/31/2011 ??? Severe aortic stenosis Patient Active Problem List Diagnosis Code ??? Type 2 diabetes mellitus with circulatory disorder, with long-term current use of insulin E11.59, Z79.4 ??? Hypertension I10 ??? Hyperlipidemia E78.5 ??? Arthritis M19.90 ??? S/P laparoscopic cholecystectomy 07/15/2020 Z90.49 ??? Atrial fibrillation--- paroxysmal I48.91 ??? 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 Aortic stenosis - moderate I35.0 ??? Obesity (BMI 30.0-34.9) E66.9 ??? Anemia, iron deficiency D50.9 ??? S/P balloon aortic valvuloplasty 06/24/2020 Z98.890 ??? Esophagitis, erosive K22.10 ??? Aortic stenosis, severe I35.0 PAST SURGICAL HISTORY: Past Surgical History: Procedure Laterality Date ??? CT PERITONEAL DRAINAGE 04/28/2020 CT Guided Drain Peritoneal 04/28/2020 [facility] RAD CAT SCAN ??? HYSTERECTOMY, VAGINAL ??? IR BILIARY TUBE CHECK/CHANGE/REMOVE 06/03/2020 IR Biliary Tube Check/Change/Remove 06/03/2020 Jos Collins P, DO [facility] INTERVENTIONL RAD ??? IR CHOLECYSTOSTOMY TUBE PLACEMENT 04/22/2020 IR Cholecystostomy Tube Placement 04/22/2020 Jos Collins P, DO [facility] INTERVENTIONL RAD ??? IR DRAIN CHECK/CHANGE/REMOVE 05/19/2020 IR Drain Check/Change/Remove 05/19/2020 Jos Collins P, DO [facility] INTERVENTIONL RAD ??? PRO COLONOSCOPY, DIAGNOSTIC N/A 09/12/2020 COLONOSCOPY, DIAGNOSTIC performed by Mane Avila MD at [facility] ENDOSCOPY ??? PRO LAP, CHOLECYSTECTOMY/GRAPH N/A 07/15/2020 LAPAROSCOPIC CHOLECYSTECTOMY WITH CHOLANGIOGRAM (WRVU 11.47) performed by Hong Rosenthal MD at [facility] MAIN OR ??? PRO UPPER GI ENDOSCOPY, BIOPSY N/A 09/12/2020 EGD WITH BIOPSY (WRVU 2.49) performed by Mane Avila MD at [facility] ENDOSCOPY ??? 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 multivitamin (THERAGRAN) Tablet Take 1 tablet by mouth daily. ??? aspirin 81 mg Tablet, Chewable Take 81 mg by mouth daily. 30 tablet 3 ??? losartan (COZAAR) 100 mg Tablet Take 1 tablet by mouth daily. (Patient taking differently: Ndut560 mg by mouth daily.) 90 tablet 3 ??? ferrous gluconate (Fergon) 324 mg (37.5 mg iron) Tablet Take 1 tablet by mouth daily. 60 tablet1 ??? acetaminophen (Tylenol) 325 mg Tablet Take 2 tablets by mouth every 4 hours as needed. ??? amoxicillin (Amoxil) 500 mg Capsule Take 4 capsules by mouth 30-60 min prior to dental procedure. 4 capsule 3 ??? lidocaine (XYLOCAINE) 5 % Ointment ??? rosuvastatin (Crestor) 20 mg Tablet Take 1 tablet by mouth every evening. 90 tablet 3 ??? AMIOdarone (Cordarone; Pacerone) 200 mg Tablet Take 1 tablet by mouth 2 times daily. 30 tablet 11 ??? polyethylene glycoL (Miralax) 17 gram Powder in Packet Take 17 g by mouth daily. 14 each 0 ??? VITAMIN D 1,000 unit Capsule take 1 capsule by mouth daily 0 ??? VITAMINS B COMPLEX Tablet take 1 capsule by mouth once daily 0 ??? blood sugar diagnostic strips (ONETOUCH ULTRA TEST) Strip 1 each by Other route 3 times daily (before meals). Diag code E10.65 300 each 3 ??? insulin glargine (LANTUS SOLOSTAR) Insulin Pen Inject 27 Units subcutaneously 2 times daily. (Patient taking differently: Inject 25 Units subcutaneously 2 times daily.) 50 mL 3 ??? insulin needles, disposable, 31 gauge x 5/16 Needle Inject 1 each subcutaneously 6 times daily. 10.65 400 each 3 ??? Blood-Glucose Meter Misc One Touch Ultra Brand, 250.02. 1 each 0 ??? Lancets Misc Use twice daily or as needed. 200 each 3 ??? bisacodyl EC (Dulcolax) 5 mg Tablet, Delayed Release (E.C.) Take 2 tablets by mouth daily as needed for Constipation. (Patient not taking: Reported on 10/24/2021) 30 tablet 0 ??? pantoprazole EC (Protonix) 40 mg Tablet, Delayed Release (E.C.) Take 1 tablet by mouth 2 times daily. (Patient not taking: No sig reported) 90 tablet 3 ??? insulin lispro (HUMALOG KWIKPEN) Insulin Pen Inject 15-20 Units subcutaneously 3 times daily (before meals). ICD 10 Code: E11.65 (Patient not taking: Reported on 10/24/2021) 45 mL 2 No current facility-administered medications for this visit. ALLERGIES: No Known Allergies PHYSICAL EXAMINATION: Vitals: 10/24/21 1117 BP: 170/67 Pulse: 81 Weight: 79.7 kg (175 lb 11.2 oz) General: Well appearing, no acute distress HEENT: anicteric sclera Chest: Clear to auscultation bilaterally, no wheeze, rale or rhonchi CVS: Regular rate and rhythm, normal s1/s2, no murmurs, rubs or gallops ABD: Soft, non-tender, non-distended, normoactive bowel sounds, no hepatosplenomegaly appreciated Extremities: Warm and well perfused Skin: No rash, no jaundice Neuro: Alert and oriented x3, grossly non-focal LABS: -Labs reviewed and are notable for: Lab Results Component Value Date WBC 8.2 10/24/2021 HGB 8.7 (L) 10/24/2021 HCT 29.1 (L) 10/24/2021 MCV 75.8 (L) 10/24/2021 PLATELET 298 10/24/2021 Chemistry Component Value Date/Time NA 141 10/24/2021 1241 K 3.7 10/24/2021 1241 CL 107 10/24/2021 1241 CO2 23 10/24/2021 1241 BUN 13 10/24/2021 1241 CREATININE 0.77 10/24/2021 1241 Component Value Date/Time CALCIUM 9.0 10/24/2021 1241 ALKPHOS 334 (H) 10/24/2021 1241 AST 92 (H) 10/24/2021 1241 ALT 65 (H) 10/24/2021 1241 BILITOT 0.8 10/24/2021 1241 Lab Results Component Value Date ALT 65 (H) 10/24/2021 AST 92 (H) 10/24/2021 ALKPHOS 334 (H) 10/24/2021 BILITOT 0.8 10/24/2021 IMAGING: CT A/P (07/22/21): ENDOSCOPY: EGD (08/2020): Findings: ?The Z-line was regular and was found 37 cm from the ?incisors. ?White exudate along majority of the distal 1/3rd of ?the esophagus. Not easily washed away. No underlying ?ulceration or erosions. ?The entire examined stomach was normal. Biopsies were ?taken with a cold forceps for Helicobacter pylori ?testing. ?The examined duodenum was normal. Impression: ?- Z-line regular, 37 cm from the ?incisors. ?- Exudate in the lower 1/3rd of the ?esophagus, no underlying ?erosions/ulcerations. Likely ?represents healing of previous Grade ?D esophagitis. ?- Normal stomach. Biopsied. ?- Normal examined duodenum. Recommendation: ?- Await pathology results. ?- Colonoscopy today [place] (08/2020): Findings: ?Hemorrhoids were found on perianal exam. ?The colon (entire examined portion) appeared normal. ?Due to looping of the scope and somewhat redundant ?colon, the IC valve was visualized but the ileum was ?not intubated. ?Internal hemorrhoids were found. The hemorrhoids were ?medium-sized. ?A few small-mouthed diverticula were found in the ?sigmoid colon. Impression: ?- Hemorrhoids found on perianal exam. ?- The entire examined colon is normal. ?- Internal hemorrhoids. ?- Diverticulosis in the sigmoid colon. ?- No specimens collected. ?- No cause of iron deficiency ?identiifed on EGD or colonoscopy. Recommendation: ?- Would consider IV iron ?- If requires further evaluation for ?possible GI blood loss, VCE would be ?next step. EGD (04/2020): Findings: ?The Z-line was regular and was found 36 cm from the ?incisors. ?LA Grade D (one or more mucosal breaks involving at ?least 75% of esophageal circumference) esophagitis ?with no bleeding was found in the lower third of the ?esophagus and extended up to the mid esophagus. This ?was the likely cause of melena while on eliquis, ?aspirin, and plavix. ?A small amount of food (residue) was found in the ?gastric fundus and body. Lavage of the area was ?performed, resulting in clearance with adequate ?visualization. ?The exam of the stomach was otherwise normal. ?The examined duodenum was normal. Impression: ?- Z-line regular, 36 cm from the ?incisors. ? - LA Grade D reflux esophagitis. ?Likely cause of melena. ?- A small amount of food (residue) in ?the stomach. ?- Normal examined duodenum. ?- No specimens collected. Recommendation: ?- Return [facility] to [facility] for ?ongoing care. ?- Resume previous diet. ?- Use Protonix (pantoprazole) 40 mg ?PO BID for 6 weeks, then PO daily ?- Monitor for signs of ongoing ?bleeding ?- If bleeding continues, will need ?colonoscopy during hospitalization. ?Otherwise will schedule as outpatient ?and repeat EGD as well to confirm ?mucosal healing. Additional Testing: - Reviewed available labs, imaging and endoscopy results in EDH/CIS as well as Scan Docs tab. TTE (08/2021): 1. The left ventricular chamber size is normal. There is normal global left ventricular systolic function with an EF of 57% and no wall motion abnormalities. 2. The right ventricle is normal in size. Right ventricular global systolic function is normal. The estimated pulmonary artery systolic pressure is mildly elevated at45 mmHg. 3. The 23 mm Bobo Damián Ultra bio-prosthetic aortic valve implanted in Aug 2020 appears well seated with normal function. The mean trans-valvular gradient across the aortic valve is 14 mmHg with no significant leak. 4. Compared to the study of Sep 2020, no change in gradient or LV function. ASSESSMENT & PLAN: Ms. Moody has had a persistent microcytic anemia with largely unrevealing EGD / colo last year. It doesn't seem that she was started on oral iron until just a few months ago though, so this may be one reason why she is still anemic. At no point has she had overt GI bleeding, but she began having darker stools once starting oral iron in July. Given her hx of severe , there could have been a component of Heyde syndrome, although AVMs were never seen in the upper or lower GI tract, and she's since had a BaV and now TAVR, which should have addressed this if so. She has also had reassuringcross-sectional imaging against an occult GI malignancy in Jun 2021. Due to her anemia, she has been unable to start AC for her A Fib, for which she is undergoing an eval for a Watchman device. I agree with the plan to pursue a capsule endoscopy to see if there are any culprit lesions in the small bowel, although I explained to the patient that yield from VCE is often poor. I also explained that if we did find a lesion patient would need to return for a balloon enteroscopy. # Microcytic anemia - Check CBC, iron stores (on oral iron) - VCE - Potential balloon enteroscopy if small bowel lesions found - Continue daily PPI - Continue oral iron # Abnormal LFTs - Unclear culprit. Considered congestive hepatopathy given her cardiac comorbids although her EF was recently normal post-TAVR. She does have some elevated R- sided pressures (RVSP 45mHg). Celiac possible, particularly given anemia. Multiple [place] RFs as well. No significant EtOH history to account for elevations, and pattern would be atypical. Recommend a broad eval for metabolic causes of liver disease. - Check CMP, TTG, Ig levels, AMEENA, ASMA, AMA, viral hep markers The patient was seen with Dr. Heller. Eamon Lange MD PGY-5, Gastroenterology [address] [place] [address] P: [phone] F: [phone] CC Regis Muller MD [address] [place] [address] CC Harris Castillo MD * Wallace Heller MD - 10/24/2021 11:00 AM EST ATTENDING ADDENDUM I interviewed and examined Shannan Moody with Dr. Lange in clinic today. I have discussed the case with him and confirm the history and sanchez physical findings outlined in this note. The assessment and plan were formulated in discussion with me at the time of this encounter, and I agree with them as documented. Wallace Heller MD Gastroenterology and Hepatology [facility] documented in this encounter Plan of Treatment Scheduled Orders Name Type Priority Associated Diagnoses Orde r Schedule ENDOSCOPY CASE REQUEST: VIDEO CAPSULE ENDOSCOPY Procedures Routine Iron deficiency anemia, unspecified iron deficiency anemia type Ordered: 10/24/2021 documented as of this encounter Results * (ABNORMAL) Prothrombin Time (10/24/2021 12:41 PM EST) PT 13.4(H) 9.4 - 12.5 sec [facility] INR 1.2 [facility] Comment: An INR <2.0 indicates adequate procoagulant activity for hemostasis in most patients without underlying bleeding disorders, though the INR may not adequately reflect hemostatic capacity in patients with liver disease and synthetic impairment. The recommended target INR range for therapeutic anticoagulation is 2.0 ? 3.0 for most applications, though lower and higher ranges may be appropriate depending on clinical circumstances. Blood 10/24/2021 12:4 1 PM EST 10/24/2021 12:55 PM EST Narrative Resulting Agency Comment Spec In Lab Wallace Heller MD HEMATOLOGY ORDERA BLES [facility] [place] [address] * (ABNORMAL) Comprehensive metabolic panel (non-fasting) (10/24/2021 12:41 PM EST) Glucose Lvl 129 65 - 199 mg/dL [facility] Comment:Diabetes: >=200 mg/d L plus symptoms BUN 13 8 - 18 mg/dL [facility] Creatinine 0.77 0.70 - 1.20 mg/dL [facility] Sodium 141 135 - 145 mmol/L [facility] Potassium 3.7 3.5 - 5.0 mmol/L [facility] Comment: Please note: ??Patients with WBC >100,000 may have falsely elevated Potassium levels. ??For accurate Potassium quantification in these patients send serum separator tube (gold top) for subsequent determinations. ??Contact the Clinical Chemistry Laboratory if there are any questions. Chloride 107 98 - 107 mmol/L [facility] CO2 23 22 - 31 mmol/L [facility] Anion Gap 11 5 - 15 mmol/L [facility] Calcium 9.0 8.5 - 10.5 mg/dL [facility] Total Protein 6.4 6.1 - 8.0 g/dL [facility] Albumin 3.7 3.2 - 5.2 g/dL [facility] AST 92(H) 0 - 30 unit/L [facility] ALT 65(H) 0 - 30 unit/L [facility] Alk Phos 334(H) 35 - 105 unit/L [facility] Total Bilirubin 0.8 0.2 - 1.3 mg/dL [facility] Estimated GFR 72 >=60 mL/min/1. 73 m?? [facility] Comment: This patient? s estimated glomerular filtration rate (eGFR) is between 72 mL/min/1.73 m2 (patients with less muscle mass) and 84 mL/min/1.73 m2 (patients with more muscle mass) as determined by the CKD-EPI equation. Assessment of eGFR is not appropriate when creatinine concentrations are rapidly changing. For clinical decisions where creatinine clearance will affect therapy, a 24-hour urine creatinine clearance may be advised. Assignment of CKD stage 1 - 5 for patients with an eGFR near the transition point between stages may be based on clinical assessment of muscle mass and symptoms in addition to eGFR. Blood 10/24/2021 12:4 1 PM EST 10/24/2021 12:55 PM EST Narrative Resulting Agency Comment Spec In Lab Wallace Heller MD CHEMISTRY ORDERAB LES Performing Organization Address City/[facility] Co de Phone Number [facility] [place] [address] * Hepatitis C Antibody (10/24/2021 12:41 PM EST) Pathologist [facility] Hepatitis C Ab Negative Negative [facility] Blood 10/24/2021 12:4 1 PM EST 10/24/2021 12:55 PM EST Narrative Resulting Agency Comment Spec In Lab Wallace Heller MD IMMUNOLOGY ORDERA BLES Performing Organization Address [facility] Co de Phone Number [facility] [place] [address] * Hepatitis B Core Antibody, Total (10/24/2021 12:41 PM EST) Pathologist [facility] Hep B Core Ab Negative Negative [facility] Blood 10/24/2021 12:4 1 PM EST 10/24/2021 12:55 PM EST Narrative Resulting Agency Comment Spec In Lab Wallace Heller MD CHEMISTRY ORDERAB LES Performing Organization Address [facility] Co de Phone Number [facility] [place] [address] * Hepatitis B Surface Antibody (10/24/2021 12:41 PM EST) HepB Surface Ab Quant <3.5 IU/L [facility] Comment: HepB Surface Ab Quant: Unvaccinated: < 8.5 IU/L Vaccinated: > 11.5 IU/L HepB Surface Ab Negative [facility] Comment: Patient is presumed to be not vaccinated or immune to HBV infection. Expected Results: Vaccinated: Positive Unvaccinated: Negative Blood 10/24/2021 12:4 1 PM EST 10/24/2021 12:55 PM EST Narrative Resulting Agency Comment Spec In Lab Wallace Heller MD IMMUNOLOGY ORDERA BLES Performing Organization Address [facility] Co de Phone Number [facility] [place] [address] * Hepatitis B Surface Antigen (10/24/2021 12:41 PM EST) HepB Surface Ag Negative Negative [facility] Blood 10/24/2021 12:4 1 PM EST 10/24/2021 12:55 PM EST Narrative Resulting Agency Comment Spec In Lab Wallace Heller MD CHEMISTRY ORDERAB LES Performing Organization Address [facility] de Phone Number [facility] [place] [address] * (ABNORMAL) Immunoglobulins, Quantitative (10/24/2021 12:41 PM EST) IgG 662(L) 700 - 1,600 mg/dL [facility] Comment: Pediatric Reference Intervals obtained from the Caliper Reference Interval project. http://www.sickkids.ca/caliperproject/index.html IgA 251 70 - 400 mg/dL [facility] IgM 140 40 - 230 mg/dL [facility] Blood 10/24/2021 12:4 1 PM EST 10/24/2021 12:55 PM EST Narrative Resulting Agency Comment Spec In Lab Wlalace Heller MD CHEMISTRY ORDERAB LES Performing Organization Address [facility] Co de Phone Number [facility] [place] [address] * Tissue transglutaminase, IgA (10/24/2021 12:41 PM EST) TTG IgA Ab 0.4 0.1 - 10.0 u/ml [facility] Comment: Negative = <7 U/mL Equivocal = 7-10 U/mL Positive = >10 U/mL Blood 10/24/2021 12:4 1 PM EST 10/25/2021 7:19 AM EST Narrative Resulting Agency Comment Spec In Lab Wallace Heller MD IMMUNOLOGY ORDERA BLES Performing Organization Address [facility] Co de Phone Number [facility] [place] [address] * Mitochondrial Antibody, M2 (10/24/2021 12:41 PM EST) Mitochon Ab <0.1 <0.1 (Negative) U [facility] Comment: Test Performed by: [facility] [address] [place] [address] Room Service Bellhop: Gavin Rodriguez M.D. Ph.D.; CLIA# [id number] Blood 10/24/2021 12:4 1 PM EST 10/24/2021 3:53 PM EST Narrative Resulting Agency Comment Spec In Lab Wallace Heller MD IMMUNOLOGY ORDERA BLES Performing Organization Address [facility] Co de Phone Number [facility] [place] [address] * Smooth Muscle Antibody (10/24/2021 12:41 PM EST) Sm Muscle Ab Negative Negative [facility] Comment: Negative: No further testing will be performed ADDITIONAL INFORMATION This test was developed and its performance characteristics determined by [facility] in a manner consistent with CLIA requirements. This test has not been cleared or approved by the U.S. Food and Drug Administration. Test Performed by: [facility] [address] [place] [address] Room Service Bellhop: Gavin Rodriguez M.D. Ph.D.; CLIA# [id number] Blood 10/24/2021 12:4 1 PM EST 10/24/2021 3:53 PM EST Narrative Resulting Agency Comment Spec In Lab Wallace Heller MD IMMUNOLOGY CARLEEN JOYA [facility] [place] [address] * AMEENA (10/24/2021 12:41 PM EST) Antinuclear Ab Test ?Result ? Flag ??Unit ??RefValue Antinuclear Ab, HEp-2 ? <1:80 (Negative) ? <1:80 (Negative) ??Substrate, S ? ADDITIONAL INFORMATION --------- ?Method: Immunofluorescence using HEp-2 cellular substrate. ?Test Performed by: ?[facility] ?[address] [id number] ?Room Service Bellhop: Gavin Rodriguez M.D. Ph.D.; CLIA# [id number] [facility] Blood 10/24/2021 12:4 1 PM EST 10/24/2021 3:53 PM EST Narrative Resulting Agency Comment Spec In Lab Wallace Heller MD IMMUNOLOGY ORDERA NESTORS [facility] [place] [place] [address] documented in this encounter Visit Diagnoses Diagnosis Abnormal LFTs Other abnormal blood chemistry Iron deficiency anemia, unspecified iron deficiency anemia type documented in this encounter Care Teams Print Producer Relationship Specialty Start Date End Date Regis Muller MD [address] [place] [id number] PCP - General Emergency Medicine 06/24/21 documented as of this encounter
--- OUTSIDE RECORDS SUMMARY | 2024-03-17 14:17 | XMS_ITS | Encounter Summary ---
[place] [address] Care Team Providers Care Arcade Games Mechanic Name Role Phone Regis Muller MD Primary Care Provider [phone] Encounter Details Date Type Department Care Team (Latest Contact Info) Description 08/30/2021 9:15 AM EST Laboratory Appointment Lab [address] [address] Aortic stenosis, severe Social History Tobacco Use Types Packs/Day Years Used Date Smoking Tobacco: Never Smokeless Tobacco: Never Alcohol Use Standard Drinks/Week Comments Not Currently 0 (1 standard drink = 0.6 oz pur e alcohol) occassional Sex and Gender Information Value Date Recorded Sex Assigned at Not on file Gender Identity Not on file Sexual Orientation Not on file documented as of this encounter Plan of Treatment Not on file documented as of this encounter Procedures Procedure Name Priority Date/Time Associated Diagnosis Comments SCAN, PERIPHERAL BLOOD Routine 9:17 AM EST HEMOGRAM Routine 08/30/2021 9:17 AM EST Aortic stenosis, severe DIFFERENTIAL, AUTOMATED Routine 08/30/2021 9:17 AM EST Aortic stenosis, severe HC VENIPUNCTURE Routine 08/30/2021 9:17 AM EST Aortic stenosis, severe COMPREHENSIVE METABOLIC PANEL (NON-FASTING) Routine 08/30/2021 9:17 AM EST Aortic stenosis, severe documented in this encounter Results * Scan, Peripheral Blood (08/30/2021 9:17 AM EST) Plat Estimate Normal [facility] RBC Morphology Abnormal [facility] Microcytes 6-10 /HPF [facility] Hypochromia Moderate [facility] Ovalocytes 1-5 /HPF [facility] Giant Platelets Less than 1 /HPF MA RY [facility] Blood 08/30/2021 9:17 AM EST 08/30/2021 9:33 AM EST Narrative Resulting Agency Comment Spec In Lab Harris Castillo MD HEMATOLOGY ORDERABLE S [facility] [place] [address] * (ABNORMAL) Differential, Automated (08/30/2021 9:17 AM EST) Neutrophils % 73.4 % [facility] Neutr Abs (ANC) 6.35(H) 1.70 - 6.10 x10(3)/mc L [facility] Lymphocytes % 12.9 % [facility] Lymphocytes Abs 1.1 0.9 - 3.2 x10(3)/mc L [facility] Monocytes % 8.7 % [facility] Monocyte Abs 0.8 0.3 - 0.9 x10(3)/mc L [facility] Eosinophils % 4.0 % [facility] Eosinophils Abs 0.4 0.0 - 0.4 x10(3)/mc L [facility] Basophils % 0.8 % [facility] Basophils Abs 0.1 0.0 - 0.1 x10(3)/mc L [facility] Immature Gran % 0.20 % [facility] Comment: Immature granulocytes(IG's)percentage and absolute count will include metamyelocytes, myelocytes, and promyelocytes. Blood smears from CBCs yielding IG's will be scanned manually for concordance. If this scan disagrees with the automated IG or if promyelocytes are noted, a manual differential will be performed. Nanci Gran Abs 0.02 0.00 - 0.04 x10(3)/mc L [facility] Blood 08/30/2021 9:17 AM EST 08/30/2021 9:33 AM EST Narrative Resulting Agency Comment Spec In Lab Harris Castillo MD HEMATOLOGY ORDERABLE S Performing Organization Address City/State/[facility] Co de Phone Number [facility] [place] [address] * (ABNORMAL) Hemogram (08/30/2021 9:17 AM EST) WBC 8.7 4.0 - 9.5 x10(3)/[facility] RBC 4.44 4.00 - 5.21 x10(6)/[facility] Hemoglobin 8.2(L) 11.7 - 15.5 g/dL [facility] Hematocrit 29.0(L) 35.7 - 45.8 % [facility] MCV 65.3(L) 82.6 - 94.4 [facility] MCH 18.5(L) 27.1 - 32.0 pg [facility] MCHC 28.3(L) 31.7 - 35.0 g/dL [facility] Platelets 290 145 - 357 x10(3)/[facility] RDWSD 53.3(H) 37.0 - 46.0 [facility] RDWCV 23.4(H) 11.5 - 14.1 % [facility] MPV 10.3 7.6 - 12.9 [facility] nRBC % Auto 0.0 % [facility] nRBC Abs Auto 0.000 0.000 - 0.000 x10(3)/[facility] Blood 08/30/2021 9:17 AM EST 08/30/2021 9:33 AM EST Narrative Resulting Agency Comment Spec In Lab Harris Castillo MD HEMATOLOGY ORDERABLE S [facility] [place] [address] * (ABNORMAL) Comprehensive metabolic panel (non-fasting) (08/30/2021 9:17 AM EST) Glucose Lvl 284(H) 65 - 199 mg/dL [facility] Comment:Diabetes: >=200 mg/d L plus symptoms BUN 20(H) 8 - 18 mg/dL [facility] Creatinine 0.76 0.70 - 1.20 mg/dL [facility] Sodium 136 135 - 145 mmol/L [facility] Potassium 4.4 3.5 - 5.0 mmol/L [facility] Comment: Please note: ??Patients with WBC >100,000 may have falsely elevated Potassium levels. ??For accurate Potassium quantification in these patients send serum separator tube (gold top) for subsequent determinations. ??Contact the Clinical Chemistry Laboratory if there are any questions. Chloride 103 98 - 107 mmol/L [facility] CO2 21(L) 22 - 31 mmol/L [facility] Anion Gap 12 5 - 15 mmol/L [facility] Calcium 9.0 8.5 - 10.5 mg/dL [facility] Total Protein 6.3 6.1 - 8.0 g/dL [facility] Albumin 3.8 3.2 - 5.2 g/dL [facility] AST 56(H) 0 - 30 unit/L [facility] ALT 55(H) 0 - 30 unit/L [facility] Alk Phos 252(H) 35 - 105 unit/L [facility] Total Bilirubin 0.7 0.2 - 1.3 mg/dL [facility] Estimated GFR 74 >=60 mL/min/1. 73 m?? [facility] Comment: This patient? s estimated glomerular filtration rate (eGFR) is between 74 mL/min/1.73 m2 (patients with less muscle mass) and 86 mL/min/1.73 m2 (patients with more muscle mass) [...] and symptoms in addition to eGFR. Blood 08/30/2021 9:17 AM EST 08/30/2021 9:33 AM EST Narrative Resulting Agency Comment Spec In Lab Harris Castillo MD CHEMISTRY ORDERABLES [facility] [place] [address] documented in this encounter Visit Diagnoses Diagnosis Aortic stenosis, severe Aortic valve disorders documented in this encounter Care Teams Arcade Games Mechanic Relationship Specialty Start Date End Date Regis Muller MD [address] [place] [address] PCP - General Emergency Medicine 06/24/21 documented as of this encounter
--- OUTSIDE RECORDS SUMMARY | 2024-03-17 14:17 | XMS_ITS | Clinical Summary ---
Author Organization [facility] Address [facility] [place] [address] Care Team Providers Care Mental Retardation Nurse Name Role Phone Regis Muller MD Primary Care Provider [phone] Allergies No known active allergies Medications Medication Sig Dispensed Refills Start Date End Date Status Blood-Glucose Meter Misc One Touch Ultra Brand, 250.02. 1 each 0 12/02/2013 Active Lancets Misc Use twice daily or as needed. 200 each 3 12/02/2013 Active insulin glargine (LANTUS SOLOSTAR) Insulin Pen Inject 27 Units subcutaneously 2 times daily. 50 mL 3 10/03/2016 Active Additional Information Patient taking differently: 25 UnitsSubcutaneous 2 TIMES DAILY, Reported on 10/24/2021 insulin needles, disposable, 31 gauge x 5/16 Needle Inject 1 each subcutaneously 6 times daily. 10.65 400 each 3 10/03/2016 Active blood sugar diagnostic strips (ONETOUCH ULTRA TEST) Strip 1 each by Other route 3 times daily (before meals). Diag code E10.65 300 each 3 10/26/2017 Active insulin lispro (HUMALOG KWIKPEN) Insulin Pen Inject 15-20 Units subcutaneously 3 times daily (before meals). ICD 10 Code: E11.65 45 mL 2 12/10/2017 Active VITAMIN D 1,000 unit Capsule take 1 capsule by mouth daily 0 11/06/2018 Active VITAMINS B COMPLEX Tablet take 1 capsule by mouth once daily 0 11/06/2018 Active rosuvastatin (Crestor) 20 mg Tablet Take 1 tablet by mouth every evening. 90 tablet 3 05/08/2020 Active AMIOdarone (Cordarone; Pacerone) 200 mg Tablet Take 1 tablet by mouth 2 times daily. 30 tablet 11 05/08/2020 Active bisacodyl EC (Dulcolax) 5 mg Tablet, Delayed Release (E.C.) Take 2 tablets by mouth daily as needed for Constipation. 30 tablet 05/08/2020 Active polyethylene glycoL (Miralax) 17 gram Powder in Packet Take 17 g by mouth daily. 14 each 05/08/2020 Active Additional Information Patient taking differently:17 g OralDAILY PRN, Reported on 12/12/2021 pantoprazole EC (Protonix) 40 mg Tablet, Delayed Release (E.C.) Take 1 tablet by mouth 2 times daily. 90 tablet 3 05/08/2020 Active Additional Information Patient not taking.Reported on 10/24/2021 lidocaine (XYLOCAINE) 5 % Ointment as needed. 08/30/2020 Active acetaminophen (Tylenol) 325 mg Tablet Take 2 tablets by mouth every 4 hours as needed. 09/18/2020 Active amoxicillin (Amoxil) 500 mg Capsule Take 4 capsules by mouth 30-60 min prior to dental procedure. 4 capsule 3 09/18/2020 Active Additional Information Patient not taking.Reported on 12/30/2021 ferrous gluconate (Fergon) 324 mg (37.5 mg iron) Tablet Take 1 tablet by mouth daily. 60 tablet 1 09/24/2020 Active losartan (COZAAR) 100 mg Tablet Take 1 tablet by mouth daily. 90 tablet 3 10/18/2020 Active Additional Information Patient taking differently:100 mg Oral DAILY,(No instructions reported), Reported on 10/24/2021 multivitamin (THERAGRAN) Tablet Take 1 tablet by mouth daily. Active aspirin 81 mg Tablet, Chewable Take 81 mg by mouth daily. 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 09/15/20: Successful 23 mm TF TAVR TTE 09/15/2020: SUMMARY: 1. PRE-TAVR: CORINE 0.74 cm2. Peak/mean gradients 45/25 mmHg. DOI 0.33. SVI 34.4 ml/m2. Hypertrophied left ventricle with normal segmental and global function with an estimated ejection fraction of 65%. Normal right ventricular systolic function. 2. POST-TAVR: The bio-prosthetic aortic valve (23 mm, Bobo Damián Ultra) appears well seated with normal function. Peak/mean gradients 21/11 mmHg. There is no prosthetic aortic valve regurgitation present. There is normal global left ventricular systolic function with estimated ejection fraction of 70% and no segmental wall motion abnormalities. The right ventricular chamber size and global systolic function are normal. There is no pericardial effusion. See remainder of report for additional Findings. TTE 10/18/2020: SUMMARY: 1. There is normal global left ventricular systolic function. Ejection fraction is estimated to be 65%. 2. Right ventricular global systolic function is normal. 3. The bio-prosthetic aortic valve appears well seated with normal function. There is trace aortic valvular regurgitation. Trace paravalvular regurgitation. 4. See remainder of report for additional findings. ? Obesity (BMI 30.0-34.9) 07/13/2020 Aortic stenosis - moderate 04/23/2020 Overview (06/01/2020): 04/20/20 TTE SUMMARY:?? 1. Mild concentric left ventricular hypertrophy is observed. There is normal global left ventricular systolic function. The quantitative left ventricular ejection fraction by biplane Olivera's method is 59%. There are no left ventricular segmental wall motion abnormalities. 2. The left atrium is moderately dilated. 3. The aortic valve is probably tricuspid. All leaflets appear calcified/thickened with reduced excursion. There is severe aortic valve stenosis. The calculated aortic valve area is 0.8 cm2. The mean trans-valvular gradient across the aortic valve is only 12 mmHg, but low SVI is noted and the Doppler gradients may be under-estimated. Mild (1+/4+) aortic valve regurgitation is present. 4. The mitral valve leaflets are mildly thickened. There is mitral annular calcification. The mean gradient across the mitral valve is 5 mmHg. There is mild (1+/4+) mitral regurgitation present. 5. Other details as below. 6. IMPRESSION: The aortic valve appears severely stenotic despite low gradients. Suspect gradients are under-estimated and/or impacted by low stroke volume index (23 ml/m2). Atrial fibrillation--- paroxysmal 04/22/2020 Overview (04/22/2020): ?? Mar 2020: AF with RVR seen during admission with cholecystitis. 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, with long-term current use of insulin 12/24/2012 Hypertension 12/24/2012 Hyperlipidemia 12/24/2012 Arthritis 12/24/2012 Resolved Problems Problem Noted Date Diagnosed Date Resolved Date Actinic keratosis 08/31/2011 07/13/2020 Seborrheic keratosis 08/31/2011 020 Encounters Date Type Department Care Team Description 01/07/2024 Transcribe Orders eD Incoming Referrals [phone] Regis Muller MD Spinal stenosis, lumbar region, without neurogenic claudication from Last 3 Months Social History Tobacco Use Types Packs/Day Years Used Date Smoking Tobacco: Never Smokeless Tobacco: Never Tobacco Cessation:Counseling Given: Yes Alcohol Use Standard Drinks/Week Comments Not Currently 0 (1 standard drink = 0.6 oz pur e alcohol) occassional Sex and Gender Information Value Date Recorded Sex Assigned at Not on file Gender Identity Not on file Sexual Orientation Not on file Last Filed Vital Signs Vital Sign Reading Time Taken Comments Blood Pressure 199/69 12/30/2021 10:29 AM EDT Pulse 68 12/30/2021 10:29 AM EDT Temperature 36.7 ??C (98.1 ??F) 12/12/2021 8:00 AM ED T Respiratory Rate 20 10/18/2020 2:23 PM EST Oxygen Saturation 99% 12/30/2021 10:29 AM EDT Inhaled Oxygen Concentration - - Weight 81.6 kg (180 lb) 12/30/2021 10:29 AM EDT Height 157.5 cm (5' 2) 12/30/2021 10:29 AM EDT Body Mass Index 32.92 12/30/2021 10:29 AM EDT Plan of Treatment Health Maintenance Due Date Last Done Comments Pneumoccocal Vaccine: 65+ (1 of 2 - PCV) 1946 DM Opthalmology Exam 1950 Tdap adult 1959 Tetanus vaccine 1959 Zoster vaccine (1 of 2) 1990 Advance Directive 1995 Bone Density Scan 2005 DM Urine Microalbumin yearly 02/28/201812/2016, 11/16/2014, 04/15/2014 DM Hemoglobin A1c 12/10/2020 09/11/2020, , 02/28/2017, Additional history exists DM Creatinine yearly 10/24/2022 10/24/2021, 08/30/2021, 10/18/2020, Additional history exists Covid-19 Vaccine (1 - 2022-2 4 season) 2023 Influenza (Flu) vaccine (1 o f 1 - Influenza standard series) 04/27/2024 Colonoscopy Discontinued 09/12/2020, 09/12/2020 Colorectal Cancer Screening Discontinued Sigmoidoscopy (10 year) with FIT yearly Discontinued 09/12/2020, 09/12/2020 CT Colonography Discontinued FIT DNA Discontinued FIT Discontinued Sigmoidoscopy Discontinued Procedures Procedure Name Priority Date/Time Associated Diagnosis Comments COMPREHENSIVE METABOLIC PANEL (NON-FASTING) Routine 10/24/2021 12:41 PM EST Abnormal LFTs COLONOSCOPY Routine 09/12/2020 12:56 PM EST HC HEMOGLOBIN A1C Routine 09/11/2020 5:3 6 AM EST U ALBUMIN/CRE RATIO Routine 02/28/2017 1 0:33 AM EDT Uncontrolled type 2 diabetes mellitus without complication, with long-term current use of insulin from Last 3 Months or Most Recently Relevant to Health Maintenance Results * (ABNORMAL) Comprehensive metabolic panel (non-fasting) (10/24/2021 12:41 PM EST) Glucose Lvl 129 65 - 199 mg/dL [facility] Comment:Diabetes: >=200 mg/d L plus symptoms BUN 13 8 - 18 mg/dL [facility] Creatinine 0.77 0.70 - 1.20 mg/dL [facility] Sodium 141 135 - 145 mmol/L [facility] Potassium 3.7 3.5 - 5.0 mmol/L [facility] Comment: Please note: ??Patients with WBC >100,000 may have falsely elevated Potassium levels. ??For accurate Potassium quantification in these patients send serum separator tube (gold top) for subsequent determinations. ??Contact the Clinical Chemistry Laboratory if there are any questions. Chloride 107 98 - 107 mmol/L [facility] CO2 23 22 - 31 mmol/L [facility] Anion Gap 11 5 - 15 mmol/L [facility] Calcium 9.0 8.5 - 10.5 mg/dL [facility] Total Protein 6.4 6.1 - 8.0 g/dL [facility] Albumin 3.7 3.2 - 5.2 g/dL [facility] AST 92(H) 0 - 30 unit/L [facility] ALT 65(H) 0 - 30 unit/L [facility] Alk Phos 334(H) 35 - 105 unit/L [facility] Total Bilirubin 0.8 0.2 - 1.3 mg/dL [facility] Estimated GFR 72 >=60 mL/min/1. 73 m?? [facility] Comment: This patient? s estimated [...] Lab Wallace Heller MD CHEMISTRY ORDERAB LES [facility] [place] [address] * COLONOSCOPY (09/12/2020 12:56 PM EST) COLONOSCOPY [facility] Endoscopy Procedure Date: 09/12/2020 12:56 PM ? Patient Name: Shannan Moody ? N: [id number] ? Date of : 1940 ? Age: 80 ? Order #: [id number] ? Instrument Name: [id number] ? Procedure: ? Colonoscopy Indications: ? Iron deficiency anemia Providers: ? Mane Avila MD, Asha Martins ? Isabel Powell, Harris De Guzman ? Mary Referring : ? Medicines: ? Propofol per Anesthesia Complications: ? No immediate complications. Procedure: ? The procedure, indications, benefits, ? risks and alternatives were explained ? to the patient. Specifically ? discussed were potential ? complications including, but not ? limited to, bleeding, perforation, ? infection, missing a cancer, and ? adverse medication reactions. The ? patient was placed in the left ? lateral decubitus position, and a ? digital rectal exam was performed. ? The Colonoscope was inserted in the ? anus and under direct visualization, ? advanced to the cecum, identified by ? appendiceal orifice and ileocecal ? valve. Careful inspection was made as ? the colonoscope was withdrawn. The ? colonoscopy was performed without ? difficulty. The patient tolerated the ? procedure well. The quality of the ? bowel preparation was excellent. ? Findings: ? Hemorrhoids were found on perianal exam. ? The colon (entire examined portion) appeared normal. ? Due to looping of the scope and somewhat redundant ? colon, the IC valve was visualized but the ileum was ? not intubated. ? Internal hemorrhoids were found. The hemorrhoids were ? medium-sized. ? A few small-mouthed diverticula were found in the ? sigmoid colon. ? Moderate Sedation: ? Not applicable - See Anesthesia documentation Impression: ?- Hemorrhoids found on perianal exam. ? - The entire examined colon is normal. ? - Internal hemorrhoids. ? - Diverticulosis in the sigmoid colon. ? - No specimens collected. ? - No cause of iron deficiency ? identiifed on EGD or colonoscopy. Recommendation: ?- Would consider IV iron ? - If requires further evaluation for ? possible GI blood loss, VCE would be ? next step. ? Attending Participation: ? I was present and participated during the entire ? procedure, including non-sanchez portions. ? Mane Avila MD 09/12/2020 2:49:41 PM Number of Addenda: 0 Note Initiated On: 09/12/2020 12:56 PM PROVATION 09/12/2020 12:5 6 PM EST Unknown GENERAL SURGICAL ORD ERABLES PROVATION * (ABNORMAL) Hemoglobin A1c (09/11/2020 5:36 AM EST) Hemoglobin A1C 8.3(H) 4.3 - 5.6 % [facility] Comment: Reference Range: 4.3 - 5.6% 5.7 - 6.4% - Increased Risk of Developing Diabetes Mellitus >= 6.5% - Consistent with diagnosis of Diabetes Mellitus In the absence of hyperglycemia (i.e. plasma glucose > 200 mg/dL) or classic symptoms of hyperglycemia a repeat measurement of HbA1c should be performed on a separate sample to confirm the diagnosis. Diagnosis and Classification of Diabetes Mellitus, Diabetes Care 2013; 36: Suppl. 1, E36-89 Est Avg Gluc See note mg/dL [facility] Comment: Estimated Average Glucose not appropriate for patients over 70 years of age. eAG equivalents for HbA1c percentages: HbA1c(%) ?eAG(mg/dL) 6.0 ?126 6.5 ?140 7.0 ?154 7.5 ?169 8.0 ?183 8.5 ?197 9.0 ?212 9.5 ?226 10.0 ? 240 Limitations: The eAG calculation has not been validated on women, individuals below 18 years old and above 70 years old, and individuals with hemoglobinopathies. Additional resources are available on the ADA website. Dago MOE, Stella J, Hernandez R, et al. ??Translating the A1C assay into estimated average glucose values. ??Diabetes Care 2008:31(8):8441-7136. Blood specimen (specimen) 09/11/2020 5:36 AM EST 09/11/2020 6:02 AM EST Narrative Resulting Agency Comment Spec In Lab Amarilys Cerna MD CHEMISTRY ORDERABLES [facility] [place] [address] * U Albumin/Cre Ratio (02/28/2017 10:33 AM EDT) Alb/Cr Ratio, Random 10 0 - 29 mcg/mg Cr [facility] Comment: Reference Ranges: <30 mcg/mg: Normal 30-300 mcg/mg: Moderately increased albuminuria.* >300 mcg/mg: Severely increased albuminuria. * ACEI or ARB recommended if diabetic; suggested if BP>130/80 without diabetes ACEI or ARB strongly recommended if diabetic; recommended if BP>130/80 without diabetes Two of three specimens collected within a 3 to 6 month period should be abnormal before considering a patient to have albuminuria. Transient causes: exercise, fever, infection, CHF, marked hyperglycemia or hypertension. Persistent albuminuria indicates CKD and is an independent risk factor for ASCVD. ADA Standards of Medical Care in Diabetes-2016; KDIGO: Kidney International Supplements (2012) 2, 357? 362 U Albumin Conc, Random 7.3 mg/L [facility] U Creatinine 76 mg/dL [facility] Urine specimen (specimen) 02/28/2017 10:33 AM EDT 02/28/2017 10:54 AM EDT Narrative Resulting Agency Comment Spec In Lab Vahid Philip MD URINE ORDERABLES [facility] [place] [address] from Last 3 Months or Most Recently Relevant to Health Maintenance Advance Directives * Attempt Cardiopulmonary Resuscitation - Inpatient (Latest Code Status on File) Date Activated Date Inactivated Comments 09/10/2020 9:30 PM 09/18/2020 4:13 PM Question Answer Comments Code Status decision made by: Patient * Attempt Cardiopulmonary Resuscitation - Inpatient Date Activated Date Inactivated Comments 07/15/2020 2:10 PM 07/15/2020 9:14 PM Question Answer Comments Code Status decision made by: Patient * Attempt Cardiopulmonary Resuscitation - Inpatient Date Activated Date Inactivated Comments 06/24/2020 3:05 PM 06/25/2020 6:18 PM Question Answer Comments Code Status decision made by: Patient * Attempt Cardiopulmonary Resuscitation - Inpatient Date Activated Date Inactivated Comments 06/24/2020 11:25 AM 06/24/2020 3:04 PM Question Answer Comments Code Status decision made by: Patient * Attempt Cardiopulmonary Resuscitation - Inpatient Date Activated Date Inactivated Comments 06/03/2020 8:24 AM 06/04/2020 4:34 AM Question Answer Comments Code Status decision made by: Patient Care Teams Mental Retardation Nurse Relationship Specialty Start Date End Date Regis Muller MD [address] [place] [address] PCP - General Emergency Medicine 06/24/21
--- OUTSIDE RECORDS SUMMARY | 2024-03-17 14:17 | XMS_ITS | Encounter Summary ---
Author Organization [facility] Address [facility] [place] [address] Care Team Providers Care Patternmaker Name Role Phone Regis Muller MD Primary Care Provider [phone] Encounter Details Date Type Department Care Team (Latest Contact Info) Description 08/30/2021 11:00 AM EST Office Visit Cardiology at [address] [place] [address] Harris Castillo [place] [id number] Aortic valve stenosis, etiology of cardiac valve disease unspecified (Primary Dx); Hypertension, unspecified type; Hyperlipidemia, unspecified hyperlipidemia type; Paroxysmal atrial fibrillation; 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; Aortic stenosis, severe; Anemia, unspecified type Social History Tobacco Use Types Packs/Day [...] Sign Reading Time Taken Comments Blood Pressure 176/62 08/30/2021 10:54 AM EST Pulse 73 08/30/2021 10:54 AM EST Temperature - - Respiratory Rate - - Oxygen Saturation 99% 08/30/2021 10:54 AM EST Inhaled Oxygen Concentration - - Weight 80.1 kg (176 lb 9.6 oz) 08/30/2021 10:54 AM EST Height 157.5 cm (5' 2) 08/30/2021 10:54 AM EST reported Body Mass Index 32.3 08/30/2021 10:54 AM EST documented in this encounter Progress Notes * Ginna Crum, FAMILY AND CONSUMER EDUCATION TEACHER - 08/30/2021 11:00 AM EST Images from the original note were not included. Formerly [facility] [place] [address] [place] [address] Structural Heart Follow Up Subjective: HPI: Shannan Moody is a 80 y.o. 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 Last seen in clinic by Maria L Green in September 2020 at which time she was doing well from a cardiac standpoint. Today she reports that she continues to struggle with anemia with labs drawn prior to today's visitsignificant for a hemoglobin of 8.2 from 10 last month. Notably, she has been following with GI at [facility] as well at at [facility] and underwent EGD/colonoscopy in August 2020 with no bleeding source identified but has required frequent outpatient transfusions. She denies any overt hemoptysis, melena or sammi bleeding. Aspirin previously discontinued and she was continued on plavix monotherapy as anticoagulation plan and in light of prior RCA stent. Echocardiogram at today's visit reveals a well seated THV with mean gradient 14 mmhg. ECG SR with RBBB, stable from prior. Patient Active Problem List Diagnosis Code ??? [...] erosive K22.10 ??? Aortic stenosis, severe I35.0 ROS: Activity level: Limited Denies chest pain, palpitations, near-syncope, or syncopal events. Denies weight gain, swelling in the abdomen/lower extremities, orthopnea, PND. No recent melena, hemoptysis or sammi bleeding. +Dyspnea, + Fatigue. 12+ ROS reviewed and negative except as detailed in the HPI. Medications: Current Outpatient Medications Medication Sig Note Dispense Refill ??? multivitamin (THERAGRAN) Tablet Take 1 tablet by mouth daily. ??? losartan (COZAAR) 100 mg Tablet Take 1 tablet by mouth daily. 90 tablet 3 ??? ferrous gluconate (Fergon) [...] 2 times daily. 30 tablet 11 ??? bisacodyl EC (Dulcolax) 5 mg Tablet, Delayed Release (E.C.) Take 2 tablets by mouth daily as needed for Constipation. 30 tablet 0 ??? clopidogreL (Plavix) 75 mg Tablet Take 1 tablet by mouth daily. 90 tablet 3 ??? polyethylene glycoL (Miralax) 17 gram Powder in Packet Take 17 g by mouth daily. 14 each 0 ??? VITAMIN D 1,000 unit Capsule take 1 capsule by mouth daily 0 ??? VITAMINS B COMPLEX Tablet take 1 capsule by mouth once daily 0 ??? insulin lispro (HUMALOG KWIKPEN) Insulin Pen Inject 15-20 Units subcutaneously 3 times daily (before meals). ICD 10 Code: E11.65 45 mL 2 ??? blood sugar diagnostic strips (ONETOUCH ULTRA TEST) Strip 1 each by Other route 3 times daily (before meals). Diag code E10.65 300 each 3 ??? insulin glargine (LANTUS SOLOSTAR) Insulin Pen Inject 27 Units subcutaneously 2 times daily. 50mL 3 ??? insulin needles, disposable, 31 gauge x 5/16 Needle Inject 1 each subcutaneously 6 times daily. 10.65 400 each 3 ??? Blood-Glucose Meter Misc One Touch Ultra Brand, 250.02. 1 each 0 ??? Lancets Misc Use twice daily or as needed. 200 each 3 ??? pantoprazole EC (Protonix) 40 mg Tablet, Delayed Release (E.C.) Take 1 tablet by mouth 2 times daily. (Patient not taking: Reported on 09/10/2020) 07/14/2020: Pt not taking 90 tablet 3 Objective: Vitals: Vitals: 08/30/21 1054 BP: 176/62 Patient Position: Sitting Pulse: 73 SpO2: 99% Weight: 80.1 kg (176 lb 9.6 oz) Height: 157.5 cm (5' 2) Physical Exam: Physical Exam General: Pleasant female, no acute distress HEENT: Normocephalic, atraumatic, benign NECK: Supple, no masses, FROM CV: Normal rate, regular rhythm, I/ MELYSSA, no ventricular heaves RESP: CTAB, moving air well, symmetric chest excursion GI: Soft, nd, nttp EXT: No cyanosis/clubbing, no edema, preserved distal pulses NEURO: No gross focal deficits, normal gait PSYC: Appropriate mood and affect, alert and oriented DERM: No rash, wwp Diagnostics: Recent Results (from the past 72 hour(s)) Comprehensive metabolic panel (non-fasting) Result Value Glucose Lvl 284 (H) BUN 20 (H) Creatinine 0.76 Sodium 136 Potassium 4.4 Chloride 103 CO2 21 (L) Anion Gap 12 Calcium 9.0 Total Protein 6.3 Albumin 3.8 AST 56 (H) ALT 55 (H) Alk Phos 252 (H) Total Bilirubin 0.7 Estimated GFR 74 Hemogram Result Value WBC 8.7 RBC 4.44 Hemoglobin 8.2 (L) Hematocrit 29.0 (L) MCV 65.3 (L) MCH 18.5 (L) MCHC 28.3 (L) Platelets 290 RDWSD 53.3 (H) RDWCV 23.4 (H) MPV 10.3 nRBC % Auto 0.0 nRBC Abs Auto 0.000 Differential, Automated Result Value Neutrophils % 73.4 Neutr Abs (ANC) 6.35 (H) Lymphocytes % 12.9 Lymphocytes Abs 1.1 Monocytes % 8.7 Monocyte Abs 0.8 Eosinophils % 4.0 Eosinophils Abs 0.4 Basophils % 0.8 Basophils Abs 0.1 Immature Gran % 0.20 Nanci Gran Abs 0.02 Scan, Peripheral Blood Result Value Plat Estimate Normal RBC Morphology Abnormal Microcytes 6-10 Hypochromia Moderate Ovalocytes 1-5 Giant Platelets Less than 1 EKG 12 Lead Result Value Ventricular rate 76 Atrial Rate 76 P-R Interval 166 QRS Duration 134 Q-T Interval 466 QTC Calculated (Bezet) 524 Calculated P Jelm 55 Calculated R Jelm -29 Calculated T Jelm 23 INTERPRETATION Normal sinus rhythm Right bundle branch block Abnormal ECG When compared with ECG of 18-OCT-2020 14:18, No significant change was found 09/15/20:??Successful 23 mm TF TAVR ?? Echocardiogram 09/15/2020 ?? 1. PRE-TAVR: CORINE 0.74 cm2. Peak/mean gradients [...] See remainder of report for additional Findings. Echocardiogram 08/30/2021 SUMMARY: ?? 1. The left ventricular chamber size is normal. There is normal global left ventricular systolic function with an EF of 57% and no wall motion abnormalities. 2. The right ventricle is normal in size. Right ventricular global systolic function is normal. The estimated pulmonary artery systolic pressure is mildly elevated at 45 mmHg. 3. The 23 mm Bobo Damián Ultra bio-prosthetic aortic valve implanted in Aug 2020 appears well seated with normal function. The mean trans-valvular gradient across the aortic valve is 14 mmHg with no significant leak. 4. Compared to the study of Sep 2020, no change in gradient or LV function. ?? Assessment and Plan: Shannan Moody is a 80 y.o. female who presents to the structural heart team in follow up of hersevere aortic stenosis now s/p 23 mm THV, August 2019. NYHA I, CCS 0. Severe s/p TAVR Echocardiogram reviewed today which revealed a well seated THV with appropriate function and without significant leak. In light of her chronic anemia, will transition plavix to aspirin 81 mg daily. ASCVD s/p RCA Stent Now >1 year s/p PCI without chest pain or anginal symptoms. As noted above will transition to aspirin 81 mg from plavix. Continue statin therapy. Atrial Fibrillation Anemia With regards to atrial fibrillation, would consider watchman procedure if unable to tolerate anticoagulation in setting of anemia. Given CBC results today it was recommended Shannan Moody follow up with GI locally. Will reconnect to GI/PCP regarding these results. Follow up: [facility] Cardiology, will plan to follow up locally Ginna Crum APRN Please see addendum by Dr. Castillo for final plan and recommendations. I have seen the patient in person and reviewed Ginna Crum APRN's above history and I agree with the details as written. The assessment and plan were formulated in discussion with me and I agree withthem as documented. Ms. Moody continues to do well post-TAVR. I independently reviewed her echocardiographic imaging and participated in the decision-making. Will transition from clopidogrel to aspi rin. With regards to her anemia, we did briefly broach non-pharmacologic options for intermediate stroke prevention (I.e. left atrial appendage occlusion) if she wishes to consider this or cannot be on A/C intermediate. Harris Castillo MD Pager [phone] documented in this encounter Plan of Treatment Not on file documented as of this encounter Procedures Procedure Name Priority Date/Time Associated Diagnosis Comments EKG 12-LEAD Routine 08/30/2021 10:59 AM EST Hypertension, unspecified type Hyperlipidemia, unspecified hyperlipidemia type Paroxysmal atrial fibrillation 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 Aortic valve stenosis, etiology of cardiac valve disease unspecified Aortic stenosis, severe documented in this encounter Results * EKG 12 Lead (08/30/2021 10:59 AM EST) Ventricular rate 76 BPM MUSE SYSTEM Atrial Rate 76 BPM MUSE SYSTEM P-R Interval 166 ms MUSE SYSTEM QRS Duration 134 ms MUSE SYSTEM Q-T Interval 466 ms MUSE SYSTEM QTC Calculated (Bezet) 524 ms MUSE SYSTEM Calculated P Jelm 55 degrees MUSE SYSTEM Calculated R Jelm -29 degrees MUSE SYSTEM Calculated T Jelm 23 degrees MUSE SYSTEM INTERPRETATION Normal sinus rhythm Right bundle branch block Abnormal ECG When compared with ECG of 18-OCT-2020 14:18, No significant change was found Confirmed by MD Oc, Jos Becerra ([id number]) on 08/30/2021 11:40:11 AM MUSE SYSTEM 08/30/2021 10:5 9 AM EST 08/30/2021 11:40 AM EST Ginna Crum APRN ECG ORDERABLES MUSE SYSTEM documented in this encounter Visit Diagnoses Diagnosis Aortic valve stenosis, etiology of cardiac valve disease unspecified- Primary Hypertension, unspecified type Hyperlipidemia, unspecified hyperlipidemia type Paroxysmal atrial fibrillation Atrial fibrillation 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 Unspecified cardiovascular disease Aortic stenosis, severe Aortic valve disorders Anemia, unspecified type documented in this encounter Care Teams Patternmaker Relationship Specialty Start Date End Date Regis Muller MD [address] [place] [address] PCP - General Emergency Medicine 06/24/21 documented as of this encounter
--- OUTSIDE RECORDS SUMMARY | 2024-03-17 14:17 | XMS_ITS | Encounter Summary ---
Author Organization [facility] Address [address] [place] [address] Care Team Providers Care Lending Manager Name Role Phone Unavailable Primary Care Provider Unavailabl e Encounter Details Date Type Department Care Team (Late st Contact Info) Description 05/21/2002 Results Only [facility] [place] conversion [address] [place] [id number] Garo Barraza FNP [address] [place], [place] [id number] Social History Tobacco Use Types Packs/Day Years Used Date Smoking Tobacco: Never Assessed Sex and Gender Information Value Date Recorded Sex Assigned at Not on file Gender Identity Not on file Sexual Orientation Not on file documented as of this encounter Plan of Treatment Not on file documented as of this encounter Procedures Procedure Name Priority Date/Time Associated Diagnosis Comments CYTOPATHOLOGY Routine 05/21/2002 0:00 EDT documented in this encounter Results * CYTOPATHOLOGY (05/21/2002 0:00 EDT) Pathology Report: CYTOPATHOLOGY REPORT Reports generated via electronic interface contain original data; however they are lacking the format of the original report. Caution should be taken when reading/interpreti ng unformatted reports. Name: ? SHANNAN MOODY ? Accession #: ? [id number] : ? 1940 (Age: 61) ??F ?Collect Date: ? 05/21/2002 Location: ? [facility] ? Receive Date: ? 05/23/2002 Provider: ?GARO BARRAZA DOCUMENTATION IMPROVEMENT SPECIALIST Copy to: ? Specimen/Source: ?Conventional Pap Test, Vagina Last Menstrual Period: ? many years ago Treatment History: ? IAN: One ovary spared Other: ? Additional clinical information: S/P Prolapsed uterus ? SPECIMEN ADEQUACY ? Unsatisfactory for Evaluation, - insufficient numbers of squamous epithelial cells (less than 10% of expected cellularity) GENERAL CATEGORIZATION ? Specimen processed and examined, but unsatisfactory for evaluation of epithelial abnormality. Recommend repeat Pap test or further follow up, as clinically indicated. ? Document reviewed and electronically signed by: ? Nahed Vasquez, ROBERT(ASCP) ? Report Date: ??05/29/2002 13:26 End of Report KAY IZQUIERDO 05/21/2002 05/23/2002 Garo [facility] ORDERABLES Performing Organization Address City/State/[facility] Co de Phone Number KAY IZQUIERDO [address] [place] [address] documented in this encounter Visit Diagnoses Not on filedocumented in this encounter
--- OUTSIDE RECORDS SUMMARY | 2024-03-17 14:17 | XMS_ITS | Encounter Summary ---
[place] [address] Care Team Providers Care Mobile Lab Technician Name Role Phone Regis Muller MD Primary Care Provider [phone] Encounter Details Date Type Department Care Team (Latest Contact Info) Description 10/24/2021 12:55 PM EST Laboratory Appointment Lab [address] [address] Abnormal LFTs; Iron deficiency anemia, unspecified iron [...] Procedure Name Priority Date/Time Associated Diagnosis Comments HC IGG, SERUM Routine 10/24/2021 12:41 PM EST Abnormal LFTs HEMOGRAM Routine 10/24/2021 12:41 PM EST Iron deficiency anemia, unspecified iron deficiency anemia type DIFFERENTIAL, AUTOMATED Routine 10/24/19 12:41 PM EST Iron deficiency anemia, unspecified iron deficiency anemia type HC HEPATITIS C ANTIBODY Routine 10/24/19 12:41 PM EST Abnormal LFTs HC PCH MITOCHONDRIAL ANTIBODY Routine 10/24/2021 12:41 PM EST Abnormal LFTs HC TISSUE TRANSGLUTAMINASE AB Routine 10/24/2021 12:41 PM EST Abnormal LFTs HC HEPATITIS B CORE AB Routine 12:41 PM EST Abnormal LFTs HC PCH SMOOTH MUSCLE AB, SERUM Routine 10/24/2021 12:41 PM EST Abnormal LFTs HC HEPATITIS B SURFACE AB Routine 10/24/2021 12:41 PM EST Abnormal LFTs HC HEPATITIS B SURFACE AG Routine 10/24/2021 12:41 PM EST Abnormal LFTs HC VENIPUNCTURE Routine 10/24/2021 12:41 PM EST Abnormal LFTs HC CBC,PLT & AUTO DIFF Routine 12:41 PM EST Iron deficiency anemia, unspecified iron deficiency anemia type HC PCH ANATITRE (ANDPATTERN) Routine 10/24/2021 12:41 PM EST Abnormal LFTs COMPREHENSIVE METABOLIC PANEL (NON-FASTING) Routine 10/24/2021 12:41 PM EST Abnormal LFTs documented in this encounter Results * Differential, Automated (10/24/2021 12:41 PM EST) Neutrophils % 71.3 % [facility] Neutr Abs (ANC) 5.88 1.70 - 6.10 x10(3)/[facility] Lymphocytes % 16.8 % [facility] Lymphocytes Abs 1.4 0.9 - 3.2 x10(3)/[facility] Monocytes % 6.8 % [facility] Monocyte Abs 0.6 0.3 - 0.9 x10(3)/[facility] Eosinophils % 4.0 % [facility] Eosinophils Abs 0.3 0.0 - 0.4 x10(3)/[facility] Basophils % 0.7 % [facility] Basophils Abs 0.1 0.0 - 0.1 x10(3)/[facility] Immature Gran % 0.40 % [facility] Comment: Immature granulocytes(IG's)percentage and absolute count will include metamyelocytes, myelocytes, and promyelocytes. Blood smears from CBCs yielding IG's will be scanned manually for concordance. If this scan disagrees with the automated IG or if promyelocytes are noted, a manual differential will be performed. Nanci Gran Abs 0.03 0.00 - 0.04 x10(3)/[facility] Blood 10/24/2021 12:4 1 PM EST 10/24/2021 12:55 PM EST Narrative Resulting Agency Comment Spec In Lab Eamon Lange MD HEMATOLOGY ORDERABL ES [facility] [place] [address] * (ABNORMAL) Hemogram (10/24/2021 12:41 PM EST) WBC 8.2 4.0 - 9.5 x10(3)/[facility] RBC 3.84(L) 4.00 - 5.21 x10(6)/[facility] Hemoglobin 8.7(L) 11.7 - 15.5 g/dL [facility] Hematocrit 29.1(L) 35.7 - 45.8 % [facility] MCV 75.8(L) 82.6 - 94.4 fL [facility] MCH 22.7(L) 27.1 - 32.0 pg [facility] MCHC 29.9(L) 31.7 - 35.0 g/dL [facility] Platelets 298 145 - 357 x10(3)/[facility] RDWSD 69.1(H) 37.0 - 46.0 fL [facility] RDWCV 26.1(H) 11.5 - 14.1 % [facility] MPV 10.2 7.6 - 12.9 [facility] nRBC % Auto 0.0 % [facility] nRBC Abs Auto 0.000 0.000 - 0.000 x10(3)/[facility] Blood 10/24/2021 12:4 1 PM EST 10/24/2021 12:55 PM EST Narrative Resulting Agency Comment Spec In Lab Eamon Lange MD HEMATOLOGY ORDERABL ES Performing Organization Address City/State/[facility] Co de Phone Number [facility] [place] [address] * AMEENA (10/24/2021 12:41 PM EST) Antinuclear Ab Test ?Result ? Flag ??Unit ??RefValue Antinuclear Ab, HEp-2 ? <1:80 (Negative) ? <1:80 (Negative) ??Substrate, S ? ADDITIONAL INFORMATION --------- ?Method: Immunofluorescence using HEp-2 cellular substrate. ?Test Performed by: ?[facility] ?[address] [place] [address] ?Sloop Captain: Gavin Rodriguez M.D. Ph.D.; CLIA# [id number] [facility] Blood 10/24/2021 12:4 1 PM EST 10/24/2021 3:53 PM EST Narrative Resulting Agency Comment Spec In Lab Wallace Heller MD IMMUNOLOGY ORDERA BLES Performing Organization Address [facility]/ZIP Co de Phone Number [facility] [place] [address] * Smooth Muscle Antibody (10/24/2021 12:41 PM EST) Sm Muscle Ab Negative Negative [facility] Comment: Negative: No further testing will be performed ADDITIONAL INFORMATION This test was developed and its performance characteristics determined by [facility] in a manner consistent with CLIA requirements. This test has not been cleared or approved by the U.S. Food and Drug Administration. Test Performed by: [facility] [place] [address] Sloop Captain: Gavin Rodriguez M.D. Ph.D.; CLIA# [id number] Blood 10/24/2021 12:4 1 PM EST 10/24/2021 3:53 PM EST Narrative Resulting Agency Comment Spec In Lab Wallace Heller MD IMMUNOLOGY ORDERA BLES Performing Organization Address City/[facility]/ZIP Co de Phone Number [facility] [place] [address] * Mitochondrial Antibody, M2 (10/24/2021 12:41 PM EST) Mitochon Ab <0.1 <0.1 (Negative) U [facility] Comment: Test Performed by: [facility] - [address], [place] [address] Sloop Captain: Gavin Rodriguez M.D. Ph.D.; CLIA# [id number] Blood 10/24/2021 12:4 1 PM EST 10/24/2021 3:53 PM EST Narrative Resulting Agency Comment Spec In Lab Wallace Heller MD IMMUNOLOGY ORDERA BLES Performing Organization Address [facility] de Phone Number [facility] [place] [address] * Tissue transglutaminase, IgA (10/24/2021 12:41 PM EST) Pathologist [facility] TTG IgA Ab 0.4 0.1 - 10.0 u/ml [facility] Comment: Negative = <7 U/mL Equivocal = 7-10 U/mL Positive = >10 U/mL Blood 10/24/2021 12:4 1 PM EST 10/25/2021 7:19 AM EST Narrative Resulting Agency Comment Spec In Lab Wallace Heller MD IMMUNOLOGY ORDERA BLES Performing Organization Address [facility] Phone Number [facility] [place] [address] * (ABNORMAL) Immunoglobulins, Quantitative (10/24/2021 12:41 PM EST) IgG 662(L) 700 - 1,600 mg/dL [facility] Comment: Pediatric Reference Intervals obtained from the Caliper Reference Interval project. http://www.sickkids.ca/caliperproject/index.html IgA 251 70 - 400 mg/dL [facility] IgM 140 40 - 230 mg/dL [facility] Blood 10/24/2021 12:4 1 PM EST 10/24/2021 12:55 PM EST Narrative Resulting Agency Comment Spec In Lab Wallace Heller MD CHEMISTRY ORDERAB LES Performing Organization Address [facility] Co de Phone Number [facility] [place] [address] * Hepatitis B Surface Antigen (10/24/2021 12:41 PM EST) HepB Surface Ag Negative Negative [facility] Blood 10/24/2021 12:4 1 PM EST 10/24/2021 12:55 PM EST Narrative Resulting Agency Comment Spec In Lab Wallace Heller MD CHEMISTRY ORDERAB LES Performing Organization Address City/[facility]/ZIP Co de Phone Number [facility] [place] [address] * Hepatitis B Surface Antibody (10/24/2021 12:41 PM EST) HepB Surface Ab Quant <3.5 IU/L [facility] Comment: HepB Surface Ab Quant: Unvaccinated: < 8.5 IU/L Vaccinated: > 11.5 IU/L HepB Surface Ab Negative [facility] Comment: Patient is presumed to be not vaccinated or immune to HBV infection. Expected Results: Vaccinated: Positive Unvaccinated: Negative Blood 10/24/2021 12:4 1 PM EST 10/24/2021 12:55 PM EST Narrative Resulting Agency Comment Spec In Lab Wallace Heller MD IMMUNOLOGY ORDERA BLES Performing Organization Address City/[facility] Co de Phone Number [facility] [place] [address] * Hepatitis B Core Antibody, Total (10/24/2021 12:41 PM EST) Hep B Core Ab Negative Negative [facility] Blood 10/24/2021 12:4 1 PM EST 10/24/2021 12:55 PM EST Narrative Resulting Agency Comment Spec In Lab Wallace Heller MD CHEMISTRY ORDERAB LES Performing Organization Address City/[facility]/ZIP Co de Phone Number [facility] [place] [address] * Hepatitis C Antibody (10/24/2021 12:41 PM EST) Pathologist [facility] Hepatitis C Ab Negative Negative [facility] Blood 10/24/2021 12:4 1 PM EST 10/24/2021 12:55 PM EST Narrative Resulting Agency Comment Spec In Lab Wallace Heller MD IMMUNOLOGY ORDERA BLES [facility] [place] [address] * (ABNORMAL) Comprehensive metabolic panel (non-fasting) (10/24/2021 12:41 PM EST) [facility] Glucose Lvl 129 65 - 199 mg/dL [facility] Comment:Diabetes: >=200 mg/d L plus symptoms BUN 13 8 - 18 mg/dL [facility] Creatinine 0.77 0.70 - 1.20 mg/dL [facility] Sodium 141 135 - 145 mmol/L [facility] Potassium 3.7 3.5 - 5.0 mmol/L [facility] Comment: Please note: ??Patients with WBC >100,000 may have falsely elevated Potassium levels. ??For accurate Potassium quantification in these patients send serum separator tube (gold top) for subsequent determinations. ??Contact the Clinical Chemistry Laboratory if there are any questions. Chloride 107 98 - 107 mmol/L [facility] CO2 23 22 - 31 mmol/L [facility] Anion Gap 11 5 - 15 mmol/L [facility] Calcium 9.0 8.5 - 10.5 mg/dL [facility] Total Protein 6.4 6.1 - 8.0 g/dL [facility] Albumin 3.7 3.2 - 5.2 g/dL [facility] AST 92(H) 0 - 30 unit/L [facility] ALT 65(H) 0 - 30 unit/L [facility] Alk Phos 334(H) 35 - 105 unit/L [facility] Total Bilirubin 0.8 0.2 - 1.3 mg/dL [facility] Estimated GFR 72 >=60 mL/min/1. 73 m?? [facility] Comment: This patient? s estimated [...] MD CHEMISTRY ORDERAB LES Performing Organization Address City/[facility] Co de Phone Number [facility] [place] [address] * (ABNORMAL) Prothrombin Time (10/24/2021 12:41 PM EST) PT 13.4(H) 9.4 - 12.5 sec [facility] INR 1.[address] [facility] Comment: An INR <2.0 indicates [...] Lab Wallace Heller MD HEMATOLOGY ORDERA BLES Performing Organization Address City/[facility]/ZIP Co de Phone Number [facility] [place] [address] documented in this encounter Visit Diagnoses Diagnosis Abnormal LFTs Other abnormal blood chemistry Iron deficiency anemia, unspecified iron deficiency anemia type documented in this encounter Care Teams Mobile Lab Technician Relationship Specialty Start Date End Date Regis Muller MD [address] [place] [address] PCP - General Emergency Medicine 06/24/21 documented as of this encounter
--- OUTSIDE RECORDS SUMMARY | 2024-03-17 14:17 | XMS_ITS | Data Portability ---
Author Organization [place] - [facility] [place] [address] Assessment No assessment recorded. Plan of Treatment Reminders Order Date Submit Date Provider Last Modified By Organization Details Last Modified Time Details Appointments Office Visit 20 2023 11:10P M REGIS STEPHENS Not available Not available Not available Lab hemoglobi n A1C, fingersti ck 2023 024 [facility], [address] [place] [address], [address], 08/30/2023 11:42:59 Referral spine center referral - 2nd time sending please send OV note when completed 2023 024 [email or web address] [facility], [address], [address], [place], [address], 12/27/2023 15:03:58 intervent ional pain medicine specialis t referral 2023 024 [facility], [address] [place], [address], 12/31/2023 10:50:40 Procedures None recorded. Surgeries None recorded. Imaging None recorded. Medication Orders Jardiance 10 mg tablet 2023 024 [facility], [address] [facility], [place], [address], 12/26/2023 15:02:52 Flonase Allergy Relief 50 mcg/actua tion nasal spray,harjinder pension 2023 024 [facility], [address] [facility], [place], [address], 12/26/2023 15:22:09 Patient TargetsNo targets recorded. Patient Instructions Encounter Date Encounter Id Patient Instructions Last Modified By Organization Details Last Modified Time 08/30/2023 [id number] increase your glipizide to twice daily, add on jardiance 10mg every morning jdege Not available 08/30/2023 11:51:21 Reason for Referral Spine Center Referral for Lo w back pain 2nd time sending please send OV note when completed Referring Physician: [facility], Encounter Date: 08/30/2023 Interventional Pain Medicine Specialist Referral for Spinal stenosis of lumbar region Referring Physician: [facility], Encounter Date: 12/26/2023 Results Created Date Observation Date Name Description Value Unit Range Abnormal Flag LastModifiedBy Organization Detail LastModifiedTime 08/30/19 24 08/30/2023 hemog lobin A1C, finge rstic k HGBA1C 11.6 % <5.7 Not Available [address], [address], 08/30/2023 11:27:17 12/25/19 24 12/25/2023 BASIC METAB OLIC PANEL calcium 9.0 mg/dL 8.5-10 .1 normal Not Available [address] [place], [address] 12/25/2023 12:39:42 12/25/19 24 12/25/2023 BASIC METAB OLIC PANEL glucose 319 mg/dL 74-106 high Not Available [address] [place], [address] 12/25/2023 12:39:42 12/25/19 24 12/25/2023 BASIC METAB OLIC PANEL BUN 21 mg/dL 7-18 high Not Available [address] [place], [address] 12/25/2023 12:39:42 12/25/19 24 12/25/2023 BASIC METAB OLIC PANEL creatinine 1.1 mg/dL 0.55-1 .02 high Not Available [address] [place], [address] 12/25/2023 12:39:42 12/25/19 24 12/25/2023 BASIC METAB OLIC PANEL estimated GFR 49.86 mL/min /1.73m 2 Not Available [address] [place], [address] 12/25/2023 12:39:42 12/25/19 24 12/25/2023 BASIC METAB OLIC PANEL sodium 141 mmol/ L 136-14 5 normal Not Available [address] [place], [address] 12/25/2023 12:39:42 12/25/19 24 12/25/2023 BASIC METAB OLIC PANEL potassium 4.0 mmol/ L 3.5-5. 1 normal Not Available [address] [place], [address] 12/25/2023 12:39:42 12/25/19 24 12/25/2023 BASIC METAB OLIC PANEL chloride 105 mmol/ L 98-107 normal Not Available [address] [place], [address] 12/25/2023 12:39:42 12/25/19 24 12/25/2023 BASIC METAB OLIC PANEL CO2 27.3 mmol/ L 21.0-3 2.0 normal Not Available [address] [place], [address] 12/25/2023 12:39:42 12/25/19 24 12/25/2023 BASIC METAB OLIC PANEL anion gap 8.7 mmol/ L 3-11 normal Not Available [address] [place], [address] 12/25/2023 12:39:42 12/25/19 24 12/25/2023 x-ray imagi ng nuria t Jones t Name: Suzanna Mansfield Unit #: [id number] Loc: ER Orderi ng Provid er: Tito Medina t #: [id number] Status : REG ER Primar y Care [facility] er: Shawn Stephens M.D. Date of Exam: Sex: F Admiss ion Date: : 1940 Age: 83 Exam(s ) XR LUMBAR SPINE COMPLE TE EXAM: XR LUMBAR SPINE COMPLE TE CLINIC AL HISTOR Y: lower back pain, worsen ing. TECHNI QUE: 2D digita l imagin g was perfor med. Five views. COMPAR MEMO: CT CT CHEST PE ABD PELVIS W from 2022 FINDIN GS: BONES: No fractu re or destru ctive lesion . Verteb ral body height s are mainta ined. Facet joint degene rative change s presen t throug hout, greate st at L4-5 and L5-S1. DISKS: Disc space narrow ing at L 4 5 and L5-S1. ALIGNM ENT: Lumbar spinal alignm ent is within normal limits . No spondy lolysi s or spondy lolist hesis. SOFT TISSUE : The aorta is heavil y calcif ied. IMPRES LYNDON: Degene rative change s. No acute abnorm ality. DATA REPOSI TORY: RADIAT ION DOSE DELIVE RED: Ordere d By: Tito Medina CC: ------ ------ ------ ------ ------ ------ ------ ------ ------ ------ ------ ------ - Dictat ed By: Maxime Ortega 1344 1344 Transc ribed By: Bibiana Velez 1344 This is privil eged, confid ential inform ation intend ed only for the provid er named. Any use or distri bution by any person other than this provid er is strict ly prohib ited. If you receiv e this report in error, please notify us immedi ately at and return the origin al report to us at the addres s above. Thank- you. merari [facility] [address] , [place], [address] 12/25/2023 17:32:19 Result Notes None recorded. Problems Name Status Onset Date Resolution Date Notes Provider Name and Address Organization Details Recorded Time Essential hypertension Active 2009 exacerbated by white coat hypertension MD Radha [address], [place], [address] , [facility] 4 22:34:00 Type 2 diabetes mellitus without complication Active [address], [place], [address] , [facility] 4 22:33:52 Obesity Active 2017 Mika garcia, [facility] 4 17:05:14 Aortic stenosis, non-rheumatic Active 2017 severe, addressed 03/2020 at time of acute cholecystitis . Initial balloon valvuloplasty to stabilize pt thru lap david, later Transcath TAVT (pericardial tissue) MD Radha [address], [place], [address] , [facility] 4 22:34:13 Pre-surgery evaluation Completed 201702/27/2018 01/28/2018 - Comments only - Rossi Fernandez [facility] - - Here for pre-op clearance for valeriy cataract surgery with Dr. Lubin at [facility] (right: 02/04; left: 02/25). She has poorly controlled diabetes, with A1C of 9.[address] Lubin's office to ask if they have a cut-off under which they require pt's to have their A1Cs at and they do not. Discussed increased risk of complications with patient r/t her poor glucose control. However, given cataract surgery is low-risk, will clear her nonetheless. Did encourage her to start her victoza (she will wait until after the first eye is done next week). She does note her biggest fear is that, because she lives alone, if she has a serious reaction nobody will notice. Since she will be in [place] with company after her surgery, she agrees to use it for the first time there to help allay this concern. She will let us know immediately if she has any issues with it. She will see her PCP later this month for DM f/u. Problem Code: Z01.818; Problem Code Type: ICD-10; Not Available [facility] 3 05:39:13 Osteoarthriti s of knee Active 2018 Mika Gerber radha, [facility]. 4 17:07:44 Atheroscleros is of coronary artery without angina pectoris Active 2019 s/p cath 04/21/20 stent placed in RCA MD Radha [address], [facility] [address] , [facility] 4 22:34:27 Old myocardial infarction Active [address], [facility] [address] , [facility] 4 22:34:04 Low back pain Active 2019 Mika Zabrina garcia, [facility] 4 17:05:07 Prosthetic heart valve in situ Active 2020 [facility] MD Radha [address], [facility] [address] , [facility] 4 22:34:51 Paroxysmal atrial fibrillation Active [address], [facility] [address] , [facility] 4 22:33:56 Hemorrhagic esophagitis Completed 202008/31/2023 Problem Code: K20.91; Problem Code Type: ICD-10; MD Radha [address], [facility] [address] , [facility] 4 23:27:37 Diastolic heart failure Active increased L ventric end diastolic pressure, pulm htn MD Radha [address] Dr, [facility] [address] , [facility] 4 22:34:40 [facility] 17:[facility]01 Wedge fracture of lumbar vertebra Completed 08/30/2023 Problem Code: S32.020S; Problem Code Type: ICD-10; MD Radha [address] Dr, [facility] [address] , [facility] 4 08:17:54 Cervical disc disorder Active 2020 Mika Gerber [facility] 4 17:09:39 Insomnia Active 2020 secondary to chronic back pain Mika Gerber [facility] 4 17:07:28 Anemia Completed 202008/31/2023 Problem Code: D64.9; Problem Code Type: ICD-10; MD Radha [address] Dr, [facility] [address] , [facility] 4 23:27:43 Spinal stenosis of lumbar region [facility] 4 17:06:44 Spondylosis without myelopathy Active [address], [facility] [address] , [facility] 4 11:30:32 Non-scarring alopecia Completed 202110/24/2021 Problem Code: L65.9; Problem Code Type: ICD-10; Not Available [facility] 3 05:39:17 Pain of left shoulder joint Active [address], [facility] [address] , [facility] 4 22:35:07 Arthralgia of the ankle and/or foot Completed 201810/08/2020 Problem Code: M25.572; Problem Code Type: ICD-10; Not Available [facility] 3 05:39:25 Calculus of gallbladder and bile duct with cholecystitis Completed 201905/23/2023 08/02/2020 - Comments only - Reshma Baig MD - Patient had cholecystitis requiring external drainage ports that is now resolved she is status post cholecystecto my. She reports that overall she is doing better and is on the mend. Problem Code: K80.60; Problem Code Type: ICD-10; Not Available [facility] 3 05:39:26 Chronic pain Completed 199804/24/2017 Problem Code: 338.29; Problem Code Type: ICD-9; Not Available [facility] 3 05:39:27 Liver function tests outside reference range Completed 202002/07/2021 Problem Code: R94.5; Problem Code Type: ICD-10; Not Available [facility] 3 05:39:28 Epigastric pain Completed 201910/08/2020 Problem Code: R10.13; Problem Code Type: ICD-10; Not Available [facility] 3 05:39:30 Dysuria Completed 202110/17/2021 Problem Code: R30.0; Problem Code Type: ICD-10; Not Available [facility] 3 05:39:30 Blood chemistry outside reference range Completed 200704/24/2017 Problem Code: R79.89; Problem Code Type: ICD-10; Not Available [facility] 3 05:39:31 Liver function tests outside reference range Completed 200705/23/2023 Problem Code: 794.8; Problem Code Type: ICD-9; Not Available [facility] 3 05:39:31 Asteatosis cutis Completed 201910/08/2020 Problem Code: L85.3; Problem Code Type: ICD-10; Not Available [facility] 3 05:39:32 Diarrhea Completed 201805/22/2019 Problem Code: R19.7; Problem Code Type: ICD-10; Not Available [facility] 3 05:39:32 Paresthesia Completed 202204/26/2023 Problem Code: R20.2; Problem Code Type: ICD-10; Not Available [facility] 3 05:39:33 Type 2 diabetes mellitus Completed 200704/24/2017 Not Available [facility] 3 05:39:34 Osteoarthriti s Completed 200104/24/2017 Not Available [facility] 3 05:39:34 Pain of right knee joint Completed 201504/24/2017 Problem Code: M25.561; Problem Code Type: ICD-10; Not Available [facility] 3 05:39:34 Hypertensive disorder Completed 200905/23/2023 Not Available [facility] 3 05:39:34 Edema Completed 202002/23/2021 Problem Code: R60.9; Problem Code Type: ICD-10; Not Available [facility] 3 05:39:35 Pleuritic pain Completed 201805/22/2019 Problem Code: R07.81; Problem Code Type: ICD-10; Not Available [facility] 3 05:39:35 Localized eruption of skin Completed 201811/29/2023 06/08/2023 - Comments only - Tammy BENTON - Patient developed a rash shortly after starting Januvia. I have asked her to stop the medication (she stopped yesterday). I am not confident that Januvia is the cause of the rash however considering the timeline it is reasonable. The rash currently does not have characteristi c features of bullous pemphigoid, Summers-Johnson on syndrome or epidermal necrolysis - postmarketing reports of rashes associated with Januvia. At this time there are no signs of infection. I do think it is reasonable to treat lesions with triamcinolone twice daily. I have asked patient to follow-up with our office on Sunday for further evaluation of the rash as well as planning for diabetic care. Problem Code: R21; Problem Code Type: ICD-10; Mika garcia, [facility] 4 17:09:27 Elevated blood-pressur e reading without diagnosis of hypertension Completed 202110/11/2022 Problem Code: R03.0; Problem Code Type: ICD-10; Not Available [facility] 3 05:39:37 Gastrointesti nal tract excision Completed 201906/20/2021 Problem Code: Z90.49; Problem Code Type: ICD-10; Not Available [facility] 3 05:39:38 Pain in thoracic spine Completed 202010/17/2021 Problem Code: M54.6; Problem Code Type: ICD-10; Not Available [facility] 3 05:39:39 Nausea Completed 202002/07/2021 Problem Code: R11.0; Problem Code Type: ICD-10; Not Available [facility] 3 05:39:39 Pain in thoracic spine Completed 202010/17/2021 Problem Code: M54.9; Problem Code Type: ICD-10; Not Available [facility] 3 05:39:40 Hyperglycemia due to type 2 diabetes mellitus Completed 201505/23/2023 Problem Code: E11.65; Problem Code Type: ICD-10; Not Available [facility] 3 05:39:40 Heart murmur Completed 201610/08/2020 Problem Code: R01.1; Problem Code Type: ICD-10; Not Available [facility] 3 05:39:40 Rhinitis Active [address], [place], [address] , [facility]. 4 15:20:14 Problem Notes None recorded. Procedures Surgical History None recorded. Imaging Results Imaging Date Name Status LastModified by [facility] Details LastModified Time 12/25/2023 [facility] [address] [place], [address] 12/25/2023 17:32:19 Procedure Notes None recorded. Medical Equipment None Reported. Allergies Allergen ID Allergen Name Allergen Category Reaction Reaction Severity Criticality Documentation Date Start Date Code Code System Note Provider Name and Address Organization Details Recorded Time 54149 Dilt medicatio n rash mild Not available 07/06/20232011 34514 8 RxNorm Skin Rash Aller gyRea ction : 'Skin Rash' ; Not Available [facility] 16:11:33 67750 metformin hydrochlo ride medicatio n vomiting moderate Not available 07/06/20232020 06131 3 RxNorm vomit ing, diarr hea Aller gyRea ction : 'vomi ting, diarr hea'; Not Available [facility] 16:11:33 70180 codeine medicatio n other severe Not available 11/29/20232001 2670 RxNorm [facility] 17:12:00 30771 epinephri ne medicatio n vomiting mild Not available 11/29/20232001 3992 RxNorm [facility] 17:12:45 99113 lisinopri l medicatio n cough rash mild mild Not available 11/29/20232010 38949 RxNorm [facility] 17:13:17 50416 tramadol medicatio n other moderate Not available 11/29/20232020 24600 RxNorm over sedat ion at low doses [facility] 17:13:44 Medications Name Sig Start Date Stop Date Status Note LastModified by Organization Details LastModified Time losartan 50 mg tablet Take 1 tab by mouth daily 2016 active Not Available Not Available Not Avai lable amoxicill in 500 mg capsule TAKE FOUR CAPSULES BY MOUTH 1 HOUR PRIOR TO DENTAL PROCEDUR E active Not Available Not Available No t Available triamcino lone acetonide 0.5 % topical cream Apply 1 a small amount to affected area twice a day 2022 active Not Available Not Available Not Avai lable amiodaron e 200 mg tablet TAKE ONE TABLET BY MOUTH TWICE A DAY DIRECTED active Not Available Not Available No t Available glyburide 2.5 mg tablet Take 1 tablet by mouth every morning 03/21 completed Not Available Not Available Not Available metoprolo l succinate ER 50 mg tablet,ex tended release 24 hr Take 1 tab by mouth daily 06/14 completed Not Available Not Available Not Available senna 8.6 mg tablet 2 tablet every night as needed 10/17 completed Not Available Not Available Not Available lisinopri l 20 mg tablet 1 TAB daily 04/26 completed Not Available Not Available Not Available prednison e 20 mg tablet 2 tabs a day for 5 days 02/20 completed Not Available Not Available Not Available lovastati n 40 mg tablet 1tab qd 10/30 completed Not Available Not Available Not Available metoprolo l succinate ER 100 mg tablet,ex tended release 24 hr TAKE ONE TABLET BY MOUTH EVERY DAY active Not Available Not Available No t Available Lantus U-100 Insulin 100 unit/mL subcutane ous solution 55 units daily 2015 active [facility] Not Available Not Available Not Avai lable clopidogr el 75 mg tablet TAKE ONE TABLET BY MOUTH EVERY DAY 11/07 completed Not Available Not Available Not Available chlorthal idone 25 mg tablet Take 1 tab by mouth daily 07/31 completed Not Available Not Available Not Available amlodipin e 5 mg tablet 1 TAB daily 07/02 completed Not Available Not Available Not Available tramadol 50 mg tablet Take 1 tab by mouth twice daily as needed 10/08 completed Not Available Not Available Not Available losartan 100 mg-hydroc hlorothia zide 25 mg tablet 1 tab a day 10/08 completed increase d from 50mg Not Available Not Available Not Available Celebrex 100 mg capsule Take 1 capsule by mouth twice a day as needed for pain 11/07 completed Not Available Not Available Not Available Vitamins B Complex tablet take 1 tablet daily 2016 active Not Available Not Available Not Avai lable lorazepam 0.5 mg tablet 1 tab 40 minutes prior to procedur e, may repeat once 2021 active Not Available Not Available Not Avai lable Humalog U-100 Insulin 100 unit/mL subcutane ous solution 15 units 3 times a day before meals 11/07 completed [facility] [place] [place] Not Available Not Available Not Available calcitoni n (salmon) 200 unit/actu ation nasal spray [place] 1 spray into one nostril once a day as directed alternat e nostrils each day 10/17 completed Not Available Not Available Not Available OneTouch Ultra Test strips TEST THREE TIMES A DAY active Not Available Not Available No t Available amitripty line 10 mg tablet Take 1 tablet by mouth every night 10/11 completed Not Available Not Available Not Available cephalexi n 500 mg capsule Take 1 capsule by mouth twice a day 09/29 completed Not Available Not Available Not Available pantopraz ole 40 mg tablet,de layed release TAKE ONE TABLET BY MOUTH EVERY DAY 2023 active UTD with care Not Available Not Available Not Available Diltiazem HCl CR 180 mg capsule,e xtended release 1 CAP QD 03/15 completed Not Available Not Available Not Available lisinopri l 10 mg tablet 1 QD 10/04 completed Not Available Not Available Not Available metronida zole 0.75 % topical cream APPLY A SMALL AMOUNT TO AFFECTED AREA(S) TWO TIMES A DAY active Not Available Not Available No t Available aspirin 81 mg chewable tablet Take 1 daily 10/08 completed Not Available Not Available Not Available Cozaar 25 mg tablet take 1 tablet daily 10/08 completed Not Available Not Available Not Available furosemid e 20 mg tablet Take 1 tab by mouth daily 06/30 completed Not Available Not Available Not Available lovastati n 20 mg tablet 1 qd 06/07 completed Not Available Not Available Not Available losartan 100 mg tablet TAKE ONE TABLET BY MOUTH EVERY DAY active Not Available Not Available No t Available fluticaso ne propionat e 50 mcg/actua tion nasal spray,harjinder pension USE ONE SPRAY IN EACH NOSTRIL TWO TIMES A DAY active Not Available Not Available No t Available metformin ER 500 mg tablet,ex tended release 24 hr Take 1 tablet by mouth once a day 02/07 completed Not Available Not Available Not Available glipizide 5 mg tablet TAKE ONE TABLET BY MOUTH EVERY MORNING active Not Available Not Available No t Available Diltiazem HCl CR 240 mg capsule,e xtended release 1 CAP daily 08/16 completed Not Available Not Available Not Available Vitamin B-12 1,000 mcg tablet 5 tab daily 2016 active Not Available Not Available Not Avai lable cholecalc iferol (vitamin D3) 25 mcg (1,000 unit) capsule once a day 2016 active Not Available Not Available Not Avai lable Vitamin D3 25 mcg (1,000 unit) tablet 1 daily 2016 active Not Available Not Available Not Avai lable iron 325 mg (65 mg iron) tablet TAKE ONE TABLET BY MOUTH EVERY DAY FORANEMI A 08/14 completed Not Available Not Available Not Available rosuvasta tin 20 mg tablet TAKE ONE TABLET BY MOUTH EVERY NIGHT active Not Available Not Available No t Available Crestor 10 mg tablet Take 1 tab by mouth daily at bedtime 04/24 completed Not Available Not Available Not Available metformin ER 500 mg tablet,ex tended release 24hr (osmotic) 2TAB bid 11/08 completed Not Available Not Available Not Available gabapenti n 300 mg tablet 1 three times daily 02/09 completed Not Available Not Available Not Available OneTouch UltraSoft Lancets Use 1 lancet as directed twice a day 01/14 completed Not Available Not Available Not Available Januvia 100 mg tablet TAKE ONE TABLET BY MOUTH EVERY DAY 08/30 completed Not Available Not Available Not Available Lantus Solostar U-100 Insulin 100 unit/mL (3 mL) subcutane ous pen INJECT 25 UNITS SUBCUTAN EOUSLY TWO TIMES A DAY active Not Available Not Available No t Available Lantus Solostar U-100 Insulin INJ SQ bid 07/02 completed Not Available Not Available Not Available Humalog MayitoikPen (U-100) Insulin 100 unit/mL subcutane ous Inject 15 unit subcutan eously three times a day active Not Available Not Available No t Available FreeStyle [place] Lite 1 bid 08/09 completed Not Available Not Available Not Available BD Ultra-Fin e Oliva Pen Needle 32 gauge x 5/32 use 1 needle subcutan eously five times a day 06/23 completed Not Available Not Available Not Available lidocaine 5 % topical ointment Apply four times a day 2019 active Not Available Not Available Not Avai lable Victoza 2-Colten 0.6 mg/0.1 mL (18 mg/3 mL) subcutane ous pen injector 1.2mg SC QD 07/02 completed Not Available Not Available Not Available Jardiance 10 mg tablet Take 1 tablet every day by oral route. 12/25 completed Not Available Not Available Not Available Trulicity 1.5 mg/0.5 mL subcutane ous pen injector Inject 1 1/2 mg subcutan eously once a week as directed 06/20 completed Not Available Not Available Not Available Trulicity 0.75 mg/0.5 mL subcutane ous pen injector Inject 1 pen injector subcutan eously once a week for four weeks then increase to 1.5mg 08/31 completed Not Available Not Available Not Available OneTouch Verio Flex Meter Use as directed Three times daily before meals 05/09 completed Not Available Not Available Not Available Vitals Date Recorded Body height Body mass index (BMI) Body weight Body temperature Oxygen saturation Oxygen saturation in Arterial blood by Pulse oximetry Heart rate Systolic blood pressure Diastolic blood pressure Provider Name and Address Organization Details Last Updated DateTime 155.498 8 cm 34.7 kg/m2 89010.5 9 g 97.2 [degF] 98 % 98 % 78 /min 122 mm[Hg] 74 mm[Hg] BARRY ASHLEY, MA [facility] 4 11:10:19 Date Recorded Body height Body mass index (BMI) Body weight Body temperature Oxygen saturation Oxygen saturation in Arterial blood by Pulse oximetry Heart rate Systolic blood pressure Diastolic blood pressure Provider Name and Address Organization Details Last Updated DateTime 4 155.5 cm 34.7 kg/m2 96830.5 9 g 97.4 [degF] 97 % 97 % 74 /min 130 mm[Hg] 80 mm[Hg] BARRY RAMIREZ MA [facility] 4 14:51:37 Social History None recorded. Functional Status None recorded. Mental Status None recorded. Family History Relationship Description Onset Age of this Age Resolved Age Notes Notes:*Problem: Strong famil y hx CA (colon, uterine, leukemia), heart disease, diabetes. No ETOH. Depression in mom. Medical History No medical history recorded. Gynecological HistoryNo gynecological history recorded. Obstetrics History GPAL:G 0 P 0 0 0 0 Immunizations Vaccine Type Date Status Provider Name and Address Organization Details Recorded Time Td(adult) unspecified formulation 06/22/1999 completed Not Available [facility] 07/06/2023 06:08:58 COVID-19, mRNA, LNP-S, PF, 100 mcg/0.5mL dose or 50 mcg/0.25mL dose 10/21/2020 completed Not Available [facility] 07/06/2023 06:08:58 COVID-19, mRNA, LNP-S, PF, 100 mcg/0.5mL dose or 50 mcg/0.25mL dose 11/19/2020 completed Not Available [facility] 07/06/2023 06:08:58 COVID-19, mRNA, LNP-S, PF, 100 mcg/0.5mL dose or 50 mcg/0.25mL dose 08/08/2021 completed Not Available [facility] 07/06/2023 06:08:58 pneumococcal polysaccharide PPV23 04/12/2006 completed Not Available [facility] access hospital 2022 06:08:58 Past Encounters Encounter ID Performer Location Encounter Start Date Encounter Closed Date Diagnosis/Indication Diagnosis SNOMED-CT Code [id number] REGIS STEPHENS MD [address] [address] 08/30/2023 10:44:46 08/30/2023 11:45:39 Type 2 diabetes mellitus without complication 542502473 Low back pain 253276061 Paroxysmal atrial fibrillation [id number] REGIS STEPHENS MD [address] [address] 12/26/2023 14:14:19 12/26/2023 15:30:52 Spinal stenosis of lumbar region [id number] [facility] [id number] Health Concerns Section Related Observation LastModified by Organization Detai ls LastModified Time None Recorded Concern Status LastModified by Organization Details LastModified Time None Recorded Advance Directives Directive None Recorded Payers Encounter Date Sequence Insurance Name Policy Number Policy Calloway Covered Member ID Calloway Member ID Guarantor Name 08/30/2023 1 [place]ICARE [place]: [facility] [employer] Shannan Francis Heidy [id number] Shannan A Heidy 12/26/2023 1 [place] [employer] Shannan A Heidy [id number] Shannan A Heidy Notes Date Note Type Note Provider Name and Address Organization Details Recorded Time 08/30/2023 text/html HPI Notes: Sharri belle here for follow-up for diabetes hypertension back pain or other issues. A1c has been climbing a bit. Some imitations in oral medication she can take because of intolerances. Had to stop the Januvia because the rash, did go away. Asked her to increase her Lantus from 25 units at bedtime and gradually every several days by 2 units until blood sugars were in range. She stopped at 28, blood sugars is still ranging bit high. Typically 150 or more and mornings. Continue having low back pain which is problematic and bother her a great deal. Had referred down to the spine clinic at [facility] last year but blood pressure was high because of whitecoat issues and they refused to proceed. MD [address], [place], [address], [facility]. 08/31/2023 23:28:14 12/26/2023 text/html HPI Notes: Sharri belle here for ER follow-up. Once again back pain getting very difficult for her. Seen if and does not do much. Has been careful with anti-inflammatorie s. Lidocaine patches do not do much. Even 12.5 mg doses of tramadol she does not tolerate at all. Has been told by pain clinic in [facility] in the past that there is not much else they can do for her. Classic spinal stenosis symptoms. Pain low back, positive shopping cart sign. No significant sciatica. No weakness numbness bowel or bladder changes. REGIS STEPHENS MD [address], [place], [address], [facility]. 12/30/2023 21:00:21 OBGyn Episode No OBEpisode recorded.
--- OUTSIDE RECORDS SUMMARY | 2024-03-17 14:17 | XMS_ITS | Encounter Summary ---
Author Organization [facility] Address [facility] [place] [address] Care Team Providers Care Stitch Marker Name Role Phone Regis Muller MD Primary Care Provider [phone] Encounter Details Date Type Department Care Team (Late st Contact Info) Description 12/07/2021 Telephone [place] [address] Eamon Lange MD [facility] [place] [address] Social History Tobacco Use Types Packs/Day Years Used Date Smoking Tobacco: Never Smokeless Tobacco: Never Alcohol Use Standard Drinks/Week Comments Not Currently 0 (1 standard drink = 0.6 oz pur e alcohol) occassional Sex and Gender Information Value Date Recorded Sex Assigned at Not on file Gender Identity Not on file Sexual Orientation Not on file documented as of this encounter Miscellaneous Notes * Telephone Encounter - Eamon Lange - 12/07/2021 4:28 PM EDT Images from the original note were not included. DEPT OF GASTROENTEROLOGY & HEPATOLOGY TELEPHONE ENCOUNTER Attempted to call cell but VM full. Left VM on home phone for patient to call office at her earliest convenience to review labwork and discuss plans for biopsy. Eamon Lange MD PGY-5, Gastroenterology documented in this encounter Plan of Treatment Not on file documented as of this encounter Visit Diagnoses Not on filedocumented in this encounter Care Teams Stitch Marker Relationship Specialty Start Date End Date Regis Muller MD [address] [place] [id number] PCP - General Emergency Medicine 06/24/21 documented as of this encounter
--- OUTSIDE RECORDS SUMMARY | 2024-03-17 14:17 | XMS_ITS | Encounter Summary ---
[place] [address] Care Team Providers Care Gas Station Service Attendant Name Role Phone Regis Muller MD Primary Care Provider [phone] Reason for Referral * Consultation (Routine) - Closed Specialty Diagnoses / Procedures Referred By Malini carlson Referred To Contact [facility] Diagnoses Low back pain, unspecified back pain laterality, unspecified chronicity, unspecified whether sciatica present Re establish low back pain/? new imaging/? injections(prev JEG pt) Regis Muller MD [address] [place] [address] [facility] [place] [address] Referral ID Status Reason Start Date Expiration Date V isits Requested Visits Authorized [id number] Closed Consult, Test & Treat PCP Updated and/or Approved 10/13/2022 10/13/2023 1 1 Encounter Details Date Type Department Care Team (Latest Contact Info) Description 10/13/2022 Transcribe Orders eDH Incoming Referrals [phone] Regis Muller MD [address] [place] [address] Low back pain, unspecified back pain laterality, unspecified chronicity, unspecified whether sciatica present Social History Tobacco Use Types Packs/Day Years [...] as of this encounter Plan of Treatment Scheduled Referrals Name Type Priority Associated Diagnoses Orde r Schedule Referral to Spine Center Outpatient Referral Routine Low back pain, unspecified back pain laterality, unspecified chronicity, unspecified whether sciatica present Ordered: 10/13/2022 documented as of this encounter Visit Diagnoses Diagnosis Low back pain, unspecified back pain laterality, unspecified chronicity, unspecified whether sciatica present documented in this encounter Care Teams Gas Station Service Attendant Relationship Specialty Start Date End Date Regis Muller MD [address] [place] [address] PCP - General Emergency Medicine 06/24/21 documented as of this encounter
--- OUTSIDE RECORDS SUMMARY | 2024-03-17 14:17 | XMS_ITS | Encounter Summary ---
Author Organization [facility] [place] [address] Care Team Providers Care Transportation Aide Name Role Phone Regis Muller MD Primary Care Provider [phone] Encounter Details Date Type Department Care Team (Late st Contact Info) Description 08/30/2021 10:30 AM EST Office Visit Cardiology at [address] [address] S/P TAVR (transcatheter aortic valve replacement) Social History Tobacco Use Types Packs/Day Years Used Date Smoking Tobacco: Never Smokeless Tobacco: Never Alcohol Use Standard Drinks/Week Comments Not Currently 0 (1 standard drink = 0.6 oz pur e alcohol) occassional Sex and Gender Information Value Date Recorded Sex Assigned at Not on file Gender Identity Not on file Sexual Orientation Not on file documented as of this encounter Progress Notes * Sera Hoyos LNA - 08/30/2021 10:30 AM EST S/p TAVR 1yr f/u EKG, [facility] documented in this encounter Plan of Treatment Not on file documented as of this encounter Visit Diagnoses Diagnosis S/P TAVR (transcatheter aortic valve replacement) documented in this encounter Care Teams Transportation Aide Relationship Specialty Start Date End Date Regis Muller MD [address] [place], [place] [address] PCP - General Emergency Medicine 06/24/21 documented as of this encounter
--- OUTSIDE RECORDS SUMMARY | 2024-03-17 14:17 | XMS_ITS | Encounter Summary ---
Author Organization [facility] Address [facility] [place] [address] Care Team Providers Care Guide Foreign Tour Name Role Phone Regis Muller MD Primary Care Provider [phone] Encounter Details Date Type Department Care Team (Latest Contact Info) Description 12/30/2021 9:48 AM EDT - 12/30/2021 11:16 AM EDT Hospital [place] [address] Kia Reno MD [facility] [address] Cluneal neuropathy Discharge Disposition: Home Social History Tobacco Use Types Packs/Day Years [...] Pulse 68 12/30/2021 10:29 AM EDT Temperature - - Respiratory Rate - - Oxygen Saturation 99% 12/30/2021 10:29 AM EDT Inhaled Oxygen Concentration - - Weight 81.6 kg (180 lb) 12/30/2021 10:29 AM EDT Height 157.5 cm (5' 2) 12/30/2021 10:29 AM EDT Body Mass Index 32.92 12/30/2021 10:29 AM EDT documented in this encounter Discharge Instructions * Discharge Instructions* Sarah Holguin - 12/30/2021 10:52 AM EDT documented in this encounter Medications at Time of Discharge Medication Sig Dispensed Refills Start Date End Date multivitamin (THERAGRAN) Tablet Take 1 tablet by mouth daily. aspirin 81 mg Tablet, Chewable Take 81 mg by mouth daily. 30 tablet 3 08/30/2021 losartan (COZAAR) 100 mg Tablet Take 1 tablet by mouth daily. 90 tablet 3 10/18/2020 ferrous gluconate (Fergon) 324 mg (37.5 mg iron) Tablet Take 1 tablet by mouth daily. 60 tablet 1 09/24/2020 acetaminophen (Tylenol) 325 mg Tablet Take 2 tablets by mouth every 4 hours as needed. 09/18/2020 amoxicillin (Amoxil) 500 mg Capsule Take 4 capsules by mouth 30-60 min prior to dental procedure. 4 capsule 3 09/18/2020 lidocaine (XYLOCAINE) 5 % Ointment as needed. 08/30/2020 rosuvastatin (Crestor) 20 mg Tablet Take 1 tablet by mouth every evening. 90 tablet 3 05/08/2020 AMIOdarone (Cordarone; Pacerone) 200 mg Tablet Take 1 tablet by mouth 2 times daily. 30 tablet 11 05/08/2020 bisacodyl EC (Dulcolax) 5 mg Tablet, Delayed Release (E.C.) Take 2 tablets by mouth daily as needed for Constipation. 30 tablet 05/08/2020 polyethylene glycoL (Miralax) 17 gram Powder in Packet Take 17 g by mouth daily. 14 each 05/08/2020 pantoprazole EC (Protonix) 40 mg Tablet, Delayed Release (E.C.) Take 1 tablet by mouth 2 times daily. 90 tablet 3 05/08/2020 VITAMIN D 1,000 unit Capsule take 1 capsule by mouth daily 0 11/06/2018 VITAMINS B COMPLEX Tablet take 1 capsule by mouth once daily 0 11/06/2018 insulin lispro (HUMALOG KWIKPEN) Insulin Pen Inject 15-20 Units subcutaneously 3 times daily (before meals). ICD 10 Code: E11.65 45 mL 2 12/10/2017 blood sugar diagnostic strips (ONETOUCH ULTRA TEST) Strip 1 each by Other route 3 times daily (before meals). Diag code E10.65 300 each 3 10/26/2017 insulin glargine (LANTUS SOLOSTAR) Insulin Pen Inject 27 Units subcutaneously 2 times daily. 50 mL 3 10/03/2016 insulin needles, disposable, 31 gauge x 5/16 Needle Inject 1 each subcutaneously 6 times daily. 10.65 400 each 3 10/03/2016 Blood-Glucose Meter Misc One Touch Ultra Brand, 250.02. 1 each 0 12/02/2013 Lancets Misc Use twice daily or as needed. 200 each 3 12/02/2013 documented as of this encounter H&P Notes * Kia Reno MD - 12/29/2021 2:44 PM EDT Patient Name: Shannan Moody Patient Age: 81 y.o. Birthdate: 1940 Admit date: 12/30/2021 Attending Physician: Kia Reno MD PREPROCEDURE HISTORY AND PHYSICAL Date of Visit: December 30, 2021 Chief Complaint: Right low back/upper buttock pain HPI: Subjective Shannan Moody is a 81 y.o. female who presents today for right cluneal nerve block referred by Dr. Reno. The history is obtained from the patient, and I have reviewed medical records provided by the referring physician and located in the electronic medical record to fill in gaps in the patient's recollection of events, treatments and outcomes. LOCATION:Right low back/upper buttock PAIN LEVEL AT REST 4 PAST MEDICAL HISTORY: Past Medical History: Diagnosis Date ??? Actinic keratosis 08/31/2011 ??? Diabetes ??? Seborrheic keratosis 08/31/2011 ??? Severe aortic stenosis PAST SURGICAL HISTORY: Past Surgical History: Procedure Laterality Date ??? CT PERITONEAL DRAINAGE 04/28/2020 CT Guided Drain Peritoneal 04/28/2020 [facility] RAD CAT SCAN ??? HYSTERECTOMY, VAGINAL ??? IR BILIARY TUBE CHECK/CHANGE/REMOVE 06/03/2020 IR Biliary Tube Check/Change/Remove 06/03/2020 Jos Collins, DO [facility] INTERVENTIONL RAD ??? IR CHOLECYSTOSTOMY TUBE PLACEMENT 04/22/2020 IR Cholecystostomy Tube Placement 04/22/2020 Jos Collins, DO [facility] RAD ??? IR DRAIN CHECK/CHANGE/REMOVE 05/19/2020 IR Drain Check/Change/Remove 05/19/2020 Jos Collins, DO [facility] INTERVENTION[facility] RAD ? ? PRG GI IMAGING INTRALUMINAL ESOPHAGUS-ILEUM W/I&R N/A 12/27/2021 VIDEO CAPSULE ENDOSCOPY performed by Wallace Heller MD at [facility] ENDOSCOPY ??? PRO COLONOSCOPY, DIAGNOSTIC N/A 09/12/2020 COLONOSCOPY, DIAGNOSTIC performed by Mane Avila MD at [facility] ENDOSCOPY ??? PRO LAP, CHOLECYSTECTOMY/GRAPH N/A 07/15/2020 LAPAROSCOPIC CHOLECYSTECTOMY WITH CHOLANGIOGRAM (WRVU 11.47) performed by Hong Rosenthal MD at [facility] MAIN OR ??? PRO UPPER GI ENDOSCOPY, BIOPSY N/A 09/12/2020 EGD WITH BIOPSY (WRVU 2.49) performed by Mane Avila MD at [facility] ENDOSCOPY ??? PRO UPPER GI ENDOSCOPY, DIAGNOSTIC N/A 05/03/2020 EGD, UPPER GI ENDOSCOPY performed by Brigitte Graf MD at [facility] ENDOSCOPY ALLERGIES: Patient has no known allergies. MEDICATIONS: No current facility-administered medications on file prior to encounter. Current Outpatient Medications on File Prior to Encounter Medication Sig Dispense Refill ??? multivitamin (THERAGRAN) Tablet Take 1 tablet by mouth daily. ??? aspirin 81 mg Tablet, Chewable Take 81 mg by mouth daily. 30 tablet 3 ??? losartan (COZAAR) 100 mg Tablet Take 1 tablet by mouth daily. (Patient taking differently: Kesz606 mg by mouth daily.) 90 tablet 3 ??? ferrous gluconate (Fergon) 324 mg (37.5 mg iron) Tablet Take 1 tablet by mouth daily. 60 tablet1 ??? lidocaine (XYLOCAINE) 5 % Ointment as needed. ??? rosuvastatin (Crestor) 20 mg Tablet Take 1 tablet by mouth every evening. 90 tablet 3 ??? AMIOdarone (Cordarone; Pacerone) 200 mg Tablet Take 1 tablet by mouth 2 times daily. 30 tablet 11 ??? bisacodyl EC (Dulcolax) 5 mg Tablet, Delayed Release (E.C.) Take 2 tablets by mouth daily as needed for Constipation. 30 tablet 0 ??? polyethylene glycoL (Miralax) 17 gram Powder in Packet Take 17 g by mouth daily. (Patient taking differently: Take 17 g by mouth daily as needed.) 14 each 0 ??? VITAMIN D 1,000 [...] or as needed. 200 each 3 ??? acetaminophen (Tylenol) 325 mg Tablet Take 2 tablets by mouth every 4 hours as needed. ??? amoxicillin (Amoxil) 500 mg Capsule Take 4 capsules by mouth 30-60 min prior to dental procedure. (Patient not taking: No sig reported) 4 capsule 3 ??? pantoprazole EC (Protonix) 40 mg Tablet, Delayed Release (E.C.) Take 1 tablet by mouth 2 times daily. (Patient not taking: No sig reported) 90 tablet 3 FAMILY HISTORY: No family history on file. SOCIAL HISTORY: Social History Socioeconomic History ??? Marital status: Spouse name: Not on file ??? Number of children: Not on file ??? Years of education: Not on file ??? Highest education level: Not on file Occupational History ??? Not on file Tobacco Use ??? Smoking status: Never Smoker ??? Smokeless tobacco: Never Used Vaping Use ??? Vaping Use: Never used Substance and Sexual Activity ??? Alcohol use: Not Currently Comment: occassional ??? Drug use: Never ??? Sexual activity: Not Currently Other Topics Concern ??? Not on file Social History Narrative ??? Not on file Social Determinants of Health Financial Resource Strain: Not on file Food Insecurity: Not on file Transportation Needs: Not on file Physical Activity: Not on file Housing Stability: Not on file ROS: Pt denies recent fever, chills, infection, wounds, hospitalizations, ED visits, use of antibiotics or steroids within the past 2 weeks. The patient does take ASA. PHYSICAL EXAM: BP 199/69 Pulse 68 Ht 157.5 cm (5' 2) Wt 81.6 kg (180 lb) SpO2 99% BMI 32.92 kg/m?? Physical Exam HENT: Head: Normocephalic. Eyes: General: No scleral icterus. Pulmonary: Effort: Pulmonary effort is normal. Neurological: Mental Status: She is alert. Psychiatric: Mood and Affect: Mood normal. Behavior: Behavior normal. Thought Content: Thought content normal. Judgment: Judgment normal. RADIOLOGIC DATA: n/a LABS/DX RESULTS: Last 3 wbc, hgb, hct plt Recent Labs 10/24/21 1241 08/30/21 0917 WBC 8.2 8.7 HGB 8.7* 8.2* HCT 29.1* 29.0* PLATELET 298 290 Last 3 Lytes Recent Labs 10/24/21 1241 08/30/21 0917 NA 141 136 K 3.7 4.4 CL 107 103 CO2 23 21* BUN 13 20* CREATININE 0.77 0.76 Last 3 LFTs Recent Labs 10/24/21 1241 08/30/21 0917 AST 92* 56* ALT 65* 55* ALKPHOS 334* 252* BILITOT 0.8 0.7 Last 3 Coags No results for input(s): PT, INR, PTT in the last 168 hours. Last 3 HgbA1C No results for input(s): HA1C in the last 7068 hours. ASSESSMENT: Assessment Shannan Moody is a 81 y.o. female who presents today for right cluneal nerve block referred by Dr. Reno.Her blood pressure was high today, with a systolic of 196-199 She had not taken her medication yet today; she usually takes it in the afternoon. I contacted her PCP's office and spoke to Ashley. They will see her this afternoon. I discussed with the patient that due to the high systolic BPand cardiac risk factor, the case will be cancelled. PLAN: right cluneal nerve block-cancelled due to HTN. Kia Reno MD Nursing Coordinator of Anesthesiology [facility] [address] [address] / [facility] documented in this encounter Plan of Treatment Not on file documented as of this encounter Procedures Procedure Name Priority Date/Time Associated Diagnosis Comments NERVE BLOCK, OTHER PERIPHERAL NERVE OR BRANCH Routine 12/30/2021 10:29 AM EDT Cluneal neuropathy documented in this encounter Visit Diagnoses Diagnosis Cluneal neuropathy documented in this encounter Care Teams Guide Foreign Tour Relationship Specialty Start Date End Date Regis Muller MD [address] [place] [address] PCP - General Emergency Medicine 06/24/21 documented as of this encounter
--- OUTSIDE RECORDS SUMMARY | 2024-03-17 14:17 | XMS_ITS | Continuity of Care Document ---
Author Organization [place] - [facility] Address [address] [place] [address] Assessment No assessment recorded. Plan of Treatment Reminders Order Date Submit Date Provider Last Modified By Organization Details Last Modified Time Details Appointments Office Visit 2023 11:10P M REGIS STEPHENS Not available Not available Not available Lab None recorded. Referral intervent ional pain medicine specialis t referral 2023 024 [facility], [address] [place], [address], 12/31/2023 10:50:40 Procedures None recorded. Surgeries None recorded. Imaging None recorded. Medication Orders Flonase Allergy Relief 50 mcg/actua tion nasal spray,harjinder pension 2023 024 [id number], [address] [place], [address], 12/26/2023 15:22:09 Patient TargetsNo targets recorded. Patient InstructionsNo instructions recorded. Reason for Referral [facility] Referral for [...] Range Abnormal Flag LastModifiedBy Organization Detail LastModifiedTime 12/25/19 24 12/25/2023 x-ray imagi ng repor t Patien t Name: Suzanna Mansfield Unit #: [id number] Loc: ER Orderi ng Provid er: Tito Medina Accoun t #: [id number] Status : REG ER Primar y Care Provid er: Shawn Stephens M.D. Date of Exam: [...] this report in error, please notify us eugene steve at and return the origin al report to us at the addres s above. Thank- you. merari [facility] [address], [place], [address] 12/25/2023 17:32:19 Result Notes None recorded. Problems Name Status Onset Date Resolution Date Notes Provider Name and Address Organization Details Recorded Time Essential hypertension Active 2009 exacerbated by white coat hypertension MD Radha [address], [place], [address] , [facility], [facility] 4 22:34:00 Type 2 diabetes mellitus without complication Active [address], [place], [address] , [facility], [facility] 4 22:33:52 Obesity Active 2017 Mika garcia, [facility] 4 17:05:14 Aortic stenosis, non-rheumatic Active 2017 severe, addressed 03/2020 at time of acute cholecystitis . Initial balloon valvuloplasty to stabilize pt thru lap david, later Transcath TAVT (pericardial tissue) MD Radha [address], [place], [address] , [facility], [facility] 4 22:34:13 Pre-surgery evaluation Completed 201702/27/2018 01/28/2018 - Comments only - Rossi Fernandez JAVASCRIPT ENGINEER - - Here for pre-op clearance for valeriy cataract surgery with Dr. Lubin at [facility] (right: 02/04; left: 02/25). She has poorly [...] will notice. Since she will be in [place] with company after her surgery, she agrees to use it for the first time there to help allay this concern. She will let us know immediately if she has any issues with it. She will see her PCP later this month for DM f/u. 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 Active 2019 s/p cath 04/21/20 stent placed in RCA MD Radha [address], [facility] [address] , [facility] 4 22:34:27 Old myocardial infarction Active [address], [facility] [address] , [facility] 4 22:34:04 Low back pain Active 2019 Mika Gerber [facility] 4 17:05:07 Prosthetic heart valve in situ Active 2020 [facility] [place] [address], [facility] [address] , [facility] 4 22:34:51 Paroxysmal atrial fibrillation Active [address], [facility] [address] , [facility] 4 22:33:56 Hemorrhagic esophagitis Completed 202008/31/2023 Problem Code: K20.91; Problem Code Type: ICD-10; MD Radha [address], [facility] [address] , [facility] 4 23:27:37 Diastolic heart failure Active increased L ventric end diastolic pressure, pulm htn REGIS STEPHENS MD [address], [facility] [address] , [facility] 4 22:34:40 [facility]acea [facility] 4 17:10:01 Wedge fracture of lumbar vertebra Completed 08/30/2023 Problem Code: S32.020S; Problem Code Type: ICD-10; REGIS STEPHENS MD [address], [facility] [address] , [facility] 4 08:17:54 Cervical disc disorder Active 2020 Mika Gerber [facility] 4 17:09:39 Insomnia Active 2020 secondary to chronic back pain Mika Gerber [facility] 4 17:07:28 Anemia Completed 202008/31/2023 Problem Code: D64.9; Problem Code Type: ICD-10; MD Radha [address], [facility] [address] , [facility] 4 23:27:43 Spinal stenosis of lumbar region Active 2020 Mika Gerber [facility] 4 17:06:44 Spondylosis without myelopathy Active [address], [facility] [address] [facility] 4 11:30:32 Non-scarring alopecia Completed 202110/24/2021 Problem Code: L65.9; Problem Code Type: ICD-10; Not Available [facility] 3 05:39:17 Pain of left shoulder joint Active 2022 MD Radha [address], [place], [address] , [facility] 4 22:35:07 Arthralgia of the ankle and/or foot Completed 201810/08/2020 Problem Code: M25.572; Problem Code Type: ICD-10; Not Available [facility] 3 05:39:25 Calculus of gallbladder and bile duct with cholecystitis Completed 201905/23/2023 08/02/2020 - Comments only - Reshma Baig MD - Patient had cholecystitis requiring external drainage ports that is now resolved she is status post cholecystecto my. She reports that overall she is doing better and is on the mend. Problem Code: K80.60; Problem Code Type: ICD-10; Not Available [facility] 3 05:39:26 Chronic pain Completed 199804/24/2017 Problem Code: 338.29; Problem Code Type: ICD-9; Not Available [facility] 3 05:39:27 Liver function tests outside reference range Completed 202002/07/2021 Problem Code: R94.5; Problem Code Type: ICD-10; Not Available [facility] 3 05:39:28 Epigastric pain Completed 201910/08/2020 Problem Code: R10.13; Problem Code Type: ICD-10; Not Available [facility] 3 05:39:30 Dysuria Completed 202110/17/2021 Problem Code: R30.0; Problem Code Type: ICD-10; Not Available [facility] 3 05:39:30 Blood chemistry outside reference range Completed 200704/24/2017 Problem Code: R79.89; Problem Code Type: ICD-10; Not Available [facility] 3 05:39:31 Liver function tests outside reference range Completed 200705/23/2023 Problem Code: 794.8; Problem Code Type: ICD-9; Not Available [facility] 3 05:39:31 Asteatosis cutis Completed 201910/08/2020 Problem Code: L85.3; Problem Code Type: ICD-10; Not Available [facility] 3 05:39:32 Diarrhea Completed 201805/22/2019 Problem Code: R19.7; Problem Code Type: ICD-10; Not Available [facility] 3 05:39:32 Paresthesia Completed 202204/26/2023 Problem Code: R20.2; Problem Code Type: ICD-10; Not Available [facility] 3 05:39:33 Type 2 diabetes mellitus Completed 200704/24/2017 Not Available [facility] 3 05:39:34 Osteoarthriti s Completed 200104/24/2017 Not Available [facility] 3 05:39:34 Pain of right knee joint Completed 201504/24/2017 Problem Code: M25.561; Problem Code Type: ICD-10; Not Available [facility] 3 05:39:34 Hypertensive disorder Completed 200905/23/2023 Not Available [facility] 3 05:39:34 Edema Completed 202002/23/2021 Problem Code: R60.9; Problem Code Type: ICD-10; Not Available [facility] 3 05:39:35 Pleuritic pain Completed 201805/22/2019 Problem Code: R07.81; Problem Code Type: ICD-10; Not Available [facility] 3 05:39:35 Localized eruption of skin Completed 201811/29/2023 06/08/2023 - Comments only - Tammy Jonathan JAVASCRIPT ENGINEER - Patient developed a rash shortly after [...] Problem Code: R21; Problem Code Type: ICD-10; Mikashea HendrixGerber null, [facility] 4 17:09:27 Elevated blood-pressur e reading without diagnosis of hypertension Completed 202110/11/2022 Problem Code: R03.0; Problem Code Type: ICD-10; Not Available [facility] 3 05:39:37 Gastrointesti nal tract excision Completed 201906/20/2021 Problem Code: Z90.49; Problem Code Type: ICD-10; Not Available [facility] 3 05:39:38 Pain in thoracic spine Completed 202010/17/2021 Problem Code: M54.6; Problem Code Type: ICD-10; Not Available [facility] 3 05:39:39 Nausea Completed 202002/07/2021 Problem Code: R11.0; Problem Code Type: ICD-10; Not Available [facility] 3 05:39:39 Pain in thoracic spine Completed 202010/17/2021 Problem Code: M54.9; Problem Code Type: ICD-10; Not Available [facility] 3 05:39:40 Hyperglycemia due to type 2 diabetes mellitus Completed 201505/23/2023 Problem Code: E11.65; Problem Code Type: ICD-10; Not Available [facility] 3 05:39:40 Heart murmur Completed 201610/08/2020 Problem Code: R01.1; Problem Code Type: ICD-10; Not Available [facility] 3 05:39:40 Rhinitis Active 2023 REGIS STEPHENS MD [address], [place], [address] , [facility] 4 15:20:14 Problem Notes None recorded. Medical Equipment None Reported. Allergies Allergen ID Allergen Name Allergen Category Reaction Reaction Severity Criticality Documentation Date Start Date Code Code System Note Provider Name and Address Organization Details Recorded Time 20629 Dilt medicatio n rash mild Not available 07/06/20232011 12434 8 RxNorm Skin Rash Aller gyRea ction : 'Skin Rash' ; Not Available [facility] 3 16:11:33 11318 metformin hydrochlo ride medicatio n vomiting moderate Not available 07/06/20232020 50929 3 RxNorm vomit ing, diarr hea Aller gyRea ction : 'vomi ting, diarr hea'; Not Available [facility] 3 16:11:33 13970 codeine medicatio n other severe Not available 11/29/20232001 2670 RxNorm [facility] 4 17:12:00 08353 epinephri ne medicatio n vomiting mild Not available 11/29/20232001 3992 RxNorm [facility], [facility] 4 17:12:45 71884 lisinopri l medicatio n cough rash mild mild Not available 11/29/20232010 68194 RxNorm [facility] 4 17:13:17 13056 tramadol medicatio n other moderate Not available 11/29/20232020 16105 RxNorm over sedat ion at low doses [facility] 4 17:13:44 Medications Name Sig Start Date Stop [...] ous solution 55 units daily 2015 active [facility] Not Available Not Available Not Avai lable [...] times a day before meals 11/07 completed [facility] Not Available Not Available Not Available calcitoni n (salmon) 200 unit/actu ation nasal spray [place] 1 spray into one nostril once a [...] Not Available Not Available Not Available Humalog KwikPen (U-100) Insulin 100 unit/mL subcutane ous Inject 15 unit subcutan eously three times a day active Not Available Not Available No t Available FreeStyle [place] Lite 1 bid 08/09 completed Not Available [...] Updated DateTime 4 155.5 cm 34.7 kg/m2 77297.5 9 g 97.4 [degF] 97 % 97 % 74 /min 130 mm[Hg] 80 mm[Hg] BARRY RAMIREZ [facility]. 4 14:51:37 Social History None recorded. Functional [...] Td(adult) unspecified formulation 06/22/1999 completed Not Available [facility] 07/06/2023 06:08:58 COVID-19, mRNA, LNP-S, PF, 100 mcg/0.5mL dose or 50 mcg/0.25mL dose 10/21/2020 completed Not Available [facility] 07/06/2023 06:08:58 COVID-19, mRNA, LNP-S, PF, 100 mcg/0.5mL dose or 50 mcg/0.25mL dose 11/19/2020 completed Not Available [facility] 07/06/2023 06:08:58 COVID-19, mRNA, LNP-S, PF, 100 mcg/0.5mL dose or 50 mcg/0.25mL dose 08/08/2021 completed Not Available [facility] 07/06/2023 06:08:58 pneumococcal polysaccharide PPV23 04/12/2006 completed Not Available [facility] 2022 06:08:58 Past Encounters Encounter ID Performer Location Encounter Start Date Encounter Closed Date Diagnosis/Indication Diagnosis SNOMED-CT Code [id number] REGIS STEPHENS MD [address] [address] 12/26/2023 14:14:19 12/26/2023 15:30:52 Spinal stenosis of lumbar region [id number] Rhinitis [id number] Health Concerns Section Related Observation LastModified by Organization Detai ls LastModified Time None Recorded Concern Status LastModified by Organization Details LastModified Time None Recorded Payers Encounter Date Sequence Insurance Name Policy Number Policy Calloway Covered Member ID Calloway Member ID Guarantor Name 12/26/2023 1 [place]ICARE [place] [employer] Shannan Moody [id number] Shannan Moody Notes Date Note Type Note Provider Name and Address Organization Details Recorded Time 12/26/2023 text/html HPI Notes: Sharri nt here for ER follow-up. Once again back pain getting very difficult for her. Seen if and does not do much. Has been careful with anti-inflammatorie s. Lidocaine patches do not do much. Even 12.5 mg doses of tramadol she does not tolerate at all. Has been told by pain clinic in [facility] in the past that there is not much else they can do for her. Classic spinal stenosis symptoms. Pain low back, positive shopping cart sign. No significant sciatica. No weakness numbness bowel or bladder changes. REGIS STEPHENS MD [address], [place], [address], [facility]. 12/30/2023 21:00:21 OBGyn Episode No OBEpisode recorded.
--- OUTSIDE RECORDS SUMMARY | 2024-03-17 14:17 | XMS_ITS | Encounter Summary ---
[place] [address] Care Team Providers Care Patrol Conductor Name Role Phone Regis Muller MD Primary Care Provider [phone] Encounter Details Date Type Department Care Team (Late st Contact Info) Description 12/27/2021 Telephone [facility] [place] [address] Koki Vincent RN Social History Tobacco Use Types Packs/Day Years [...] encounter Miscellaneous Notes * Telephone Encounter - Koki Vincent RN - 12/27/2021 10:03 AM EDT Contact made with patient or account retention representative as identified in contacts 1. Patient instructed to arrive at 1000 on 12/30/21 with their wedding transportation driver for their cluneal nerve block procedure. Please plan to spend about 2 hours at the center. (3 hours for RFA) 2. Has pt started any new medications or supplements in the past two weeks? No 3. Have any of the following occurred within the two weeks before the procedure date? a. Patient is having a Covid vaccine or other vaccine No b. Patient has been exposed to anybody with a contagious illness such as Covid, flu, No c. Patient is taking antibiotics to treat an infection No d. Patient has any skin rashes, breakdown, blisters or open wounds No e. Patient has had any hospitalizations, ED visits, surgery, other procedure, dental procedure No f. Patient has taken oral steroids or had a steroid injection No g. Does patient have any of the following symptoms that are NEW and NOT explained by another healthcondition: fever or chills, cough, shortness of breath or difficulty breathing, fatigue, muscle or body aches, headache, new loss of taste or smell, sore throat, congestion or runny nose, nausea or vo miting, diarrhea. No If yes, the patient has been directed to the [employer] hotline for testing prior to their procedure. (route telephone note to: [facility] Public Health covid 19 nurse triage with routing comment stating pt needs covid test prior to procedure and give date of procedure, add name and MRN to tracking tool). h. Has the patient's pain resolved or significantly improved such as a rating of 3/10 or less? No 4. Was patient instructed to stop any medications? No if yes: a. Name of medication(s): b. Confirm date of last dose: 5. Is patient having a nerve block: Yes a. If yes instructed to not take any pain medication for 12 hours before your procedure. 6. Patient instructed to take any prescribed medications that they were not told to stop, especially blood pressure medication, because their procedure may be cancelled if their blood pressure is toohigh. 7. Was patient instructed to follow NPO guidelines: No if yes, the following instructions were reviewed: a. You may eat up to 6 hours before your procedure b. You may have clear liquids only up to 2 hours before your procedure: water, apple juice, chalino melissa, sprite, popsicles, broth, tea or coffee plain or with sweetener, absolutely no dairy products, no milk including soy, oat, almond. 8. IF RFA: Does patient have a pacemaker? No a. If yes, document that cardiology was called and notified. 9. Additional notes if applicable: Patient expressed understanding and agreement with instructions Yes Patient denies further questions Yes documented in this encounter Plan of Treatment Not on file documented as of this encounter Visit Diagnoses Not on filedocumented in this encounter Care Teams Patrol Conductor Relationship Specialty Start Date End Date Regis Muller MD [address] [place] [id number] PCP - General Emergency Medicine 06/24/21 documented as of this encounter
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
--- OUTSIDE RECORDS SUMMARY | 2024-03-17 14:17 | XMS_ITS | Encounter Summary ---
Author Organization [facility] Address [facility] [place] [address] Care Team Providers Care Hand Wrapper Operator Name Role Phone Regis Muller MD Primary Care Provider [phone] Encounter Details Date Type Department Care Team (Latest Contact Info) Description 12/12/2021 9:48 AM EDT - 12/12/2021 11:59 PM EDT Hospital Encounter XRay at [address] [place] [address] Kia Reno MD [facility] [place] [address] Spinal stenosis of lumbar region without neurogenic claudication Discharge Disposition: Home Social History Tobacco Use [...] on file documented as of this encounter Medications at Time of Discharge [...] 10.65 400 each 3 10/03/2016 Blood-Glucose Meter Mis One Touch Ultra Brand, 250.02. 1 each 0 12/02/[address] [facility] Use twice daily or as needed. 200 each 3 12/02/2013 documented as of this encounter Plan of Treatment Not on file documented as of this encounter Procedures Procedure Name Priority Date/Time Associated Diagnosis Comments XR LUMBAR SPINE 2 OR 3 VIEWS Routine 12/12/2021 10:18 AM EDT Spinal stenosis of lumbar region without neurogenic claudication documented in this encounter Results * XR Lumbar Spine [...] who have questions please contact the health family day care worker that requested your imaging first. ? Narrative [...] patients who have questions please contactthe health family day care worker that requested your imaging first. Kia Reno MD IMG DX ORDERABLES documented in this encounter Visit Diagnoses Diagnosis Spinal stenosis of lumbar region without neurogenic claudication Spinal stenosis, lumbar region, without neurogenic claudication documented in this encounter Care Teams Hand Wrapper Operator Relationship Specialty Start Date End Date Regis Muller MD [address] [place] [address] PCP - General Emergency Medicine 06/24/21 documented as of this encounter
--- OUTSIDE RECORDS SUMMARY | 2024-03-17 14:17 | XMS_ITS | Encounter Summary ---
Author Organization [facility] [address] Care Team Providers Care Senior Auditor Name Role Phone Regis Muller MD Primary Care Provider [phone] Reason for Referral * Consultation (Routine) - Authorized Specialty Diagnoses / Procedures Referred By Malini carlson Referred To Contact Pain and Spine Center Diagnoses Low back pain, unspecified back pain laterality, unspecified chronicity, unspecified whether sciatica present Pain-Low back pain/? new imaging/? injections/ prev JEG pt Last seen 2021 [facility] Regis Muller MD [address] [place] [address] [facility] [place] [address] Referral ID Status Reason Start Date Expiration Date Visits Requested Visits Authorized [id number] Authorized Consult, Test & Treat PCP Updated and/or Approved 05/02/2023 05/01/2024 1 1 Encounter Details Date Type Department Care Team (Latest Contact Info) Description 05/02/2023 Transcribe Orders eDH Incoming Referrals [phone] Regis Muller MD [address] [place] [address] Low back pain, unspecified back [...] unspecified chronicity, unspecified whether sciatica present Ordered: 05/02/2023 documented as of this encounter Visit Diagnoses Diagnosis Low back pain, unspecified back pain laterality, unspecified chronicity, unspecified whether sciatica present documented in this encounter Care Teams Senior Auditor Relationship Specialty Start Date End Date Regis Muller MD [address] [place] [address] PCP - General Emergency Medicine 06/24/21 documented as of this encounter
--- OUTSIDE RECORDS SUMMARY | 2024-03-17 14:17 | XMS_ITS | Encounter Summary ---
Author Organization [place] [address] Care Team Providers Care [employer] Certified Internetwork Expert Name Role Phone Regis Muller MD Primary Care Provider [phone] Encounter Details Date Type Department Care Team (Late st Contact Info) Description 12/12/2021 [place] [id number] Asha Harding RN Social History Tobacco Use Types Packs/Day [...] encounter Miscellaneous Notes * Telephone Encounter - Asha Harding RN - 12/15/2021 3:15 PM EDT RESEARCH NURSE NOTE Date:12/15/21 Per request of this policy writer typist called patient to follow up on potential interest in study [id number]. Call placed to patient x3 on three separate days. Left voicemail x3 requesting patient call this policy writer typist back if still interested. Contact name and number provided. Updated PI documented in this encounter Plan of Treatment Not on file documented as of this encounter Visit Diagnoses Not on filedocumented in this encounter Care Teams [employer] Certified Internetwork Expert Relationship Specialty Start Date End Date Regis Muller MD [address] [place] [address] PCP - General Emergency Medicine 06/24/21 documented as of this encounter
--- OUTSIDE RECORDS SUMMARY | 2024-03-17 14:17 | XMS_ITS | Encounter Summary ---
Author Organization [facility] [place] [address] Care Team Providers Care Boat Fueler Name Role Phone Regis Muller MD Primary Care Provider [phone] Reason for Referral * Consultation (Routine) - Closed Specialty Diagnoses / Procedures Referred By Contac t Referred To Contact [facility] Diagnoses Spinal stenosis, lumbar region, without neurogenic claudication Pain- low back pain/ Lumbar stenosis/ MRI L 06/14/21 @ [facility]/ ? injection Regis Muller MD [address] [place] [address] [facility] [place] [address] Referral ID Status Reason Start Date Expiration Date V isits Requested Visits Authorized [id number] Closed Consult, Test & Treat 10/22/2021 10/22/2022 12 12 Encounter Details Date Type Department Care Team (Latest Contact Info) Description 10/22/2021 [place] [address] Regis Muller MD [address] [place] [address] Spinal stenosis, lumbar region, without neurogenic claudication Social History Tobacco Use [...] Associated Diagnoses Orde r Schedule Referral to Pain Management Outpatient Referral Routine Spinal stenosis, lumbar region, without neurogenic claudication Ordered: 10/22/2021 documented as of this encounter Visit Diagnoses Diagnosis Spinal stenosis, lumbar region, without neurogenic claudication documented in this encounter Care Teams Boat Fueler Relationship Specialty Start Date End Date Regis Muller MD [address] [place] [id number] PCP - General Emergency Medicine 06/24/21 documented as of this encounter
--- OUTSIDE RECORDS SUMMARY | 2024-03-17 14:17 | XMS_ITS | Encounter Summary ---
[facility] Organization [facility] Address [facility] [place] [address] Care Team Providers Care Academic Affairs Dean Name Role Phone Regis Muller MD Primary Care Provider [phone] Encounter Details Date Type Department Care Team (Late st Contact Info) Description 12/30/2021 10:30 AM EDT - 12/30/2021 11:00 AM EDT [place] [address] Kia Reno MD [facility] [place] [address] Not Performed NERVE BLOCK, OTHER PERIPHERAL NERVE OR BRANCH (WRVU 0.75) Social History Tobacco Use Types Packs/Day Years [...] DRAINAGE 04/28/2020 CT Guided Drain Peritoneal 04/28/2020 [facility] RAD CAT SCAN ??? HYSTERECTOMY, VAGINAL ??? IR BILIARY TUBE CHECK/CHANGE/REMOVE 06/03/2020 IR Biliary Tube Check/Change/Remove 06/03/2020 Jos Collins, DO [facility] INTERVENTIONL RAD ??? IR CHOLECYSTOSTOMY TUBE PLACEMENT 04/22/2020 IR Cholecystostomy Tube Placement 04/22/2020 Jos Collins, DO [facility] INTERVENTIONL RAD ??? IR DRAIN CHECK/CHANGE/REMOVE 05/19/2020 IR Drain Check/Change/Remove 05/19/2020 Jos Collins, DO [facility] INTERVENTIONL RAD ? ? PRG GI IMAGING INTRALUMINAL ESOPHAGUS-ILEUM W/I&R N/A 12/27/2021 VIDEO CAPSULE ENDOSCOPY performed by Wallace Heller MD at [facility] ENDOSCOPY ??? PRO COLONOSCOPY, DIAGNOSTIC N/A 09/12/2020 COLONOSCOPY, DIAGNOSTIC performed by Mane Avila MD at [facility] ENDOSCOPY ??? PRO LAP, CHOLECYSTECTOMY/GRAPH N/A 07/15/2020 LAPAROSCOPIC CHOLECYSTECTOMY WITH CHOLANGIOGRAM (WRVU 11.47) performed by Hong Rosenthal MD at [facility] MAIN OR ??? PRO UPPER GI ENDOSCOPY, BIOPSY N/A 09/12/2020 EGD WITH BIOPSY (WRVU 2.49) performed by Mane Avila MD at [facility] ENDOSCOPY ??? PRO UPPER GI ENDOSCOPY, DIAGNOSTIC N/A 05/03/2020 EGD, UPPER GI ENDOSCOPY performed by Brigitte Graf MD at [facility] ENDOSCOPY ALLERGIES: Patient has no [...] tablet by mouth daily. (Patient taking differently: [id number] mg by mouth daily.) 90 tablet 3 [...] block-cancelled due to HTN. 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
--- OUTSIDE RECORDS SUMMARY | 2024-03-17 14:17 | XMS_ITS | Referral Summary ---
Author Organization [facility] Address [address] [place] [address] Care Team Providers Care Field Consultant Name Role Phone Hannah Gagnon MD Primary Care Provider [phone] Medications Medication Sig Dispensed Refills Start Date End Date Status losartan (COZAAR) 100 mg tablet 1 tab(s) orally once a day Active insulin lispro (HUMALOG KWIKPEN INSULIN) 100 unit/mL injectable pen 0 Active insulin glargine (LANTUS SOLOSTAR U-100 INSULIN) 100 unit/mL (3 mL) injection pen 0 Acti ve Cholecalciferol, Vitamin D3, 25 mcg (1,000 unit) capsule 1 cap(s) orally once a day Active B-complex with vitamin C (VITAMIN B COMPLEX WITH C ORAL) Active Active Problems Problem Noted Date Diagnosed Date 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
--- OUTSIDE RECORDS SUMMARY | 2024-03-17 14:17 | XMS_ITS | Encounter Summary ---
[place] [address] Care Team Providers Care Personal Lines Account Manager Name Role Phone Regis Muller MD Primary Care Provider [phone] Reason for Referral * Consultation (Routine) - Denied Specialty Diagnoses / Procedures Referred By Contac t Referred To Contact [facility] Diagnoses Spinal stenosis, lumbar region, without neurogenic claudication Regis Muller MD [address] [place] [address] [facility] [address] Referral ID Status Reason Start Date Expiration Date V isits Requested Visits Authorized [id number] Denied Consult, Test & Treat PCP Updated and/or Approved 12/31/2023 07/02/2024 6 0 Encounter Details Date Type Department Care Team (Latest Contact Info) Description 01/07/2024 Transcribe Orders eDH Incoming Referrals [phone] Regis Muller MD [address] [place], [place] [id number] Spinal stenosis, lumbar region, without neurogenic claudication [...] Diagnoses Orde r Schedule Referral to [facility] and Spine Center (Internal only) Outpatient Referral Routine Spinal stenosis, lumbar region, without neurogenic claudication Ordered: 01/07/2024 documented as of this encounter Visit Diagnoses Diagnosis Spinal stenosis, lumbar region, without neurogenic claudication documented in this encounter Care Teams Personal Lines Account Manager Relationship Specialty Start Date End Date Regis Muller MD [address] [place] [id number] PCP - General Emergency Medicine 06/24/21 documented as of this encounter
--- OUTSIDE RECORDS SUMMARY | 2024-03-17 14:17 | XMS_ITS | Encounter Summary ---
Author Organization [facility] Address [facility] [place] [address] Care Team Providers Care Presser Machine Name Role Phone Regis Muller MD Primary Care Provider [phone] Encounter Details Date Type Department Care Team (Late st Contact Info) Description 12/27/2021 8:00 AM EDT - 12/27/2021 8:30 AM EDT [place] [address] Wallace Heller MD [facility] [place] [address] VIDEO CAPSULE ENDOSCOPY (WRVU 2.24) Social History Tobacco Use Types Packs/Day Years [...] Brand, 250.02. 1 each 0 12/02/2013 [facility] Use twice daily or as needed. 200 each 3 12/02/2013 documented as of this encounter H&P Notes * Wallace Heller MD - 12/27/2021 8:13 AM EDT Patient Name: Shannan Moody Patient Age: 81 y.o. Birthdate: 1940 Admit date: 12/27/2021 Attending Physician: Wallace Heller MD Gastroenterology & Hepatology Pre-Procedure History and Physical Planned Procedure: Capsule endoscopy: Indication: anemia See full clinic evaluation for details Patient Active Problem List Diagnosis Code ??? [...] erosive K22.10 ??? Aortic stenosis, severe I35.0 Medications: Reviewed in EDH No Known Allergies Social History/Family History: Reviewed in EDH. No changes Exam: Assessment and Plan: Proceed with Capsule endoscopy: ASA Grade: ASA 3 - Patient with moderate systemic disease with functional limitations Mallampati: II (soft palate, uvula, fauces visible) Sedation plan: None. Risks and benefits of the procedure were discussed with the patient. Risks discussed including bleeding, infection, reaction to anesthesia, perforation or other intraabdominal trauma, pancreatitis (if applicable), missing a cancer (if applicable) and/or other unforseen complication. Informed Consent signed by patient (or sales representative). documented in this encounter Plan of Treatment Not on file documented as of this encounter Procedures Procedure Name Priority Date/Time Associated Diagnosis Comments VIDEO CAPSULE ENDOSCOPY Routine 12/27/2021 8:58 AM EDT Gi Imaging Intraluminal Esophagus-Ileum W/I&R (22952) 12/27/2021 8:00 AM EDT Iron deficiency anemia, unspecified iron deficiency anemia type documented in this encounter Results * VIDEO CAPSULE ENDOSCOPY (12/27/2021 8:58 AM EDT) [facility] VIDEO CAPSULE ENDOSCOPY [facility] Procedure Date: 12/27/2021 8:58 AM ? Patient Name: Shannan Moody ? N: [id number] ? Date of : 1940 ? Age: 81 ? Order #: [id number] ? Instrument Name: ? Procedure: ? Video capsule endoscopy Indications: ? Unexplained iron deficiency anemia Providers: ? Wallace Heller MD Referring MD: ?Regis Muller MD Requesting Provider: ?? Eamon Lange Medicines: ? None Complications: ? No immediate complications. Procedure: ? Pre-Anesthesia Assessment: ? - Prior to the procedure, a brief ? History was performed and patient ? medications and allergies were ? reviewed. The patient is competent. ? The risks and benefits of the ? procedure were discussed with the ? patient, specifically missed ? lesion, retained capsule or ? obstruction requiring surgery for ? retrieval. All questions were ? answered and informed consent was ? obtained. Patient identification ? and proposed procedure were ? verified by the physician in the ? pre-procedure area. Mental Status ? Examination: normal. Prophylactic ? Antibiotics: The patient does not ? require prophylactic antibiotics. ? Prior Anticoagulants: The patient ? has taken no previous anticoagulant ? or antiplatelet agents. After ? reviewing the risks and benefits, ? the patient was deemed in ? satisfactory condition to undergo ? the procedure. The anesthesia plan ? was to use no sedation or ? anesthesia. ? The Sensor Array was applied to the ? patient's abdomen with adhesive ? pads and connected to the Data ? Recorder around the waist. The Data ? Recorder was checked to ensure ? green light was flashing. The ? patient was then instructed to ? ingest the M2A capsule and provided ? a glass of water. This was ? accomplished without difficulty. ? The patient was then given ? instructions for eating and ? drinking and was instructed to ? periodically monitor the Data ? Recorder throughout the day to ? insure proper transmission. ? Approximately eight hours later the ? patient returned for removal of the ? Sensor Array. ? The video capsule endoscopy was ? accomplished without difficulty. ? The patient tolerated the procedure ? well. ? Findings: ? Images of the esophagus, stomach and small bowel were ? obtained from the swallowed capsule and reviewed. ? On review of the recorded study, it was determined ? that the study lasted 7-hours 59-minutes 58-seconds ? (total recording time). The capsule enteroscope ? entered the cecum prior to the end of the recording. ? The first gastric image was captured at 0-hours ? 0-minutes and 46-seconds. ? The first duodenal image was captured at 0-hours ? 15-minutes and 18-seconds. ? The first cecal image was captured at 6-hours ? 53-minutes and 27-seconds. The total small bowel ? imaging time was 6-hours 38-minutes. ? There was no evidence of significant pathology in the ? small bowel (entire small bowel). ? There are two (2) diminutive red spots in the ? jejunum. The first at 1:04:49 and the second at ? 1:48:09. There is no definitive bleeding or AVM ? appreciated. Unlikely this is the source of ? significant anemia. ? Moderate Sedation: ? Not applicable, no sedation required. Impression: ?- There are two (2) diminutive red ? spots in the jejunum. Unlikely this ? is the source of significant anemia. ? - Otherwise normal small bowel. No ? source of significant GI bleeding ? or anemia is appreciated. ? - The complete results of this ? study (for the same date as above) ? are available in the video capsule ? equipment database, and these ? results were personally reviewed by ? me. Recommendation: ?- Return to primary care physician. ? - Follow-up in GI Clinic for ? ongoing workup as indicated. ? - Continue once daily iron. ? Reasonable to consider IV iron ? supplement and Hematology workup ? for anemia. ? Attending Participation: ? I personally performed the entire procedure. ? Dr. Bronson Heller ___ Wallace Heller MD 01/06/2022 2:42:57 PM Number of Addenda: 0 Note Initiated On: 12/27/2021 8:58 AM PROVATION 12/27/2021 8:58 AM EDT Regis Muller MD GENERAL SURGICAL ORD [facility] PROVATION documented in this encounter Visit Diagnoses Diagnosis Iron deficiency anemia, unspecified iron deficiency anemia type documented in this encounter Care Teams Presser Machine Relationship Specialty Start Date End Date Regis Muller MD [address] [place] [address] PCP - General Emergency Medicine 06/24/21 documented as of this encounter
--- OUTSIDE RECORDS SUMMARY | 2024-03-17 14:17 | XMS_ITS | Encounter Summary ---
Author Organization [facility] Address [facility] [place] [address] Care Team Providers Care Metal Grinder Name Role Phone Regis Muller MD Primary Care Provider [phone] Encounter Details Date Type Department Care Team (Late st Contact Info) Description 12/27/2021 7:28 AM EDT - 12/27/2021 6:49 PM EDT Hospital Encounter [place] [address] Wallace Heller MD [facility] [place] [address] Discharge Disposition: Home Social History Tobacco Use [...] Brand, 250.02. 1 each 0 12/02/2013 Lancets [facility] Use twice daily or as needed. 200 [...] complication. Informed Consent signed by patient (or car sales representative). documented in this encounter Plan of Treatment Not on file documented as of this encounter Procedures Procedure Name Priority Date/Time Associated Diagnosis Comments VIDEO CAPSULE ENDOSCOPY Routine 12/27/2021 8:58 AM EDT Gi Imaging Intraluminal Esophagus-Ileum W/I&R (03915) 12/27/2021 8:00 AM EDT Iron deficiency anemia, unspecified iron deficiency anemia type documented in this encounter Results * VIDEO CAPSULE ENDOSCOPY (12/27/2021 8:58 AM EDT) [facility] VIDEO CAPSULE ENDOSCOPY [facility] Endoscopy Procedure Date: 12/27/2021 8:58 AM ? Patient Name: Shannan Moody ? N: [id number] ? Date of : 1940 ? Age: 81 ? Order #: [id number] ? Instrument Name: ? Procedure: ? Video [...] EDT Regis Muller MD GENERAL SURGICAL ORD ERABLES PROVATION documented in this encounter Visit Diagnoses Not on filedocumented in this encounter Care Teams Metal Grinder Relationship Specialty Start Date End Date Regis Muller MD [address] [place] [address] PCP - General Emergency Medicine 06/24/21 documented as of this encounter
--- OUTSIDE RECORDS SUMMARY | 2024-03-17 14:17 | XMS_ITS | Encounter Summary ---
Author Organization [facility] Address [facility] [place] [address] Care Team Providers Care Ticket Broker Name Role Phone Regis Muller MD Primary Care Provider [phone] Reason for Referral * Diagnostic Test (Routine) - Closed Specialty Diagnoses / Procedures Referred By Contac t Referred To Contact Cardiology Diagnoses Aortic stenosis, severe Procedures Echocardiogram Transthoracic([facility] or [facility]) Harris Castillo MD [facility] [place] [address] [facility] [place] [address] Referral ID Status Reason Start Date Expiration Date V isits Requested Visits Authorized [id number] Closed Specialty Service Requested 05/30/2021 05/30/2022 1 1 Reason for Visit * Diagnostic Test (Routine) - Closed Specialty Diagnoses / Procedures Referred By Contac t Referred To Contact Cardiology Diagnoses Aortic stenosis, severe Procedures Echocardiogram Transthoracic([facility] or [facility]) Harris Castillo MD [facility] [place] [address] [facility] [place] [address] Referral ID Status Reason Start Date Expiration Date V isits Requested Visits Authorized [id number] Closed Specialty Service Requested 05/30/2021 05/30/2022 1 1 Encounter Details Date Type Department Care Team (Latest Contact Info) Description 08/30/2021 9:33 AM EST - 08/30/2021 11:59 PM EST Hospital Encounter Non-[place] [address] Aortic stenosis, severe Discharge Disposition: Home Social History Tobacco Use [...] Procedure Name Priority Date/Time Associated Diagnosis Comments ECHO COMPLETE Routine 08/30/2021 11:04 AM EST Aortic stenosis, severe documented in this encounter Results * ECHO COMPLETE (08/30/2021 11:04 AM EST) EF 57 HEARTLAB SYSTEM Anatomical Region Laterality Modality Other 08/30/2021 Narrative 08/30/2021 11:31 AM EST Procedure: ?Transthoracic Echocardiogram Patient: ?WILLIAM LAKESHIA A ? (Age): 1940(80y) Med Rec#: ? [id number] ?Sex: ?F ? Site Loc: ? [facility] ?Ht / Wt: ??158(cm)/82(kg) Pt. Loc: ?Echo Lab ?BSA: ?1.84 Study Date: ?? 08/30/2021 ?Pt. Type: Outpatient Tape: ? Referring: Harris Castillo Reading: Darwin Connors ([id number]) Tool Grinding Technician: Sherrie Petreson Diagnosis: *Nonrheumatic aortic (valve) stenosis (I35.0) Rhythm: ? Bundle Branch Block BP: ? 174/77 SUMMARY: 1. The left ventricular chamber size is [...] normal function. The mean trans-valvular gradient across ??the aortic valve is 14 mmHg with no significant leak. 4. Compared to the study of Sep 2020, no change in gradient or LV function. Findings ? : Study Quality: ? Adequate Left Ventricle: ? The left ventricular chamber size is normal. ?Asymmetric septal wall hypertrophy is observed. ?There is no evidence of LVOT obstruction. ?No ventricular septal defect is visualized. ?There is normal global left ventricular systolic function. ?The quantitative left ventricular ejection fraction by biplane Olivera's method is 57%. ?There are no left ventricular segmental wall motion abnormalities. ?Assessment of diastolic function is indeterminate. ??due to mitral stenosis. Left Atrium: ? The left atrium is severely dilated. 61mL/m2. ?No atrial septal defect is visualized. Right Ventricle: ? The right ventricle is normal in size. ?Right ventricular global systolic function is normal. ?The estimated pulmonary artery systolic pressure is 45 mmHg. ?The estimated right atrial pressure is 3 mmHg. Right Atrium: ? The right atrium is normal in size. Aortic Valve: ? The peak instantaneous trans-valvular gradient across the aortic valve is 24 mmHg. Obtained from RSB with imaging probe. ?The mean trans-valvular gradient across ??the aortic valve is 14 mmHg. DOI = .51. SVI = 36.54mL/m2. ?The calculated aortic valve area is 1.2 cm2. ?The size of the prosthetic aortic valve is 23mm. 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 ?The bio-prosthetic aortic valve appears well seated with normal function. Mitral Valve: ? The mitral valve leaflets appear normal. ?There is mitral annular calcification. ?The mean gradient across the mitral valve is 7 mmHg. at 71bpm. ?There is mild mitral stenosis present. ?There is mild (1+/4+) mitral regurgitation present. Tricuspid Valve: ? The tricuspid valve leaflets are morphologically normal. ?There is no tricuspid valve stenosis. ?There is trace tricuspid regurgitation present. Pulmonic Valve: ? The pulmonic valve is not well visualized. ?There is no pulmonic stenosis present. ?There is trace pulmonic regurgitation present. Pericardium: ? There is no pericardial effusion. ?A pericardial fat pad is visualized. Aorta: ? The aortic root is normal in size. ?The ascending aorta is normal in size. Pulmonary Artery: ? The main pulmonary artery is not well visualized. Venous: ? The inferior vena cava appears normal in size. ?There is a greater than 50% respiratory change in the inferior vena cava dimension. ?The flow patterns of the pulmonary veins shows systolic blunting. Misc: ? Two-dimensional echo, spectral Doppler and color Doppler performed. Chambers 2D ?Value ?Units (Range) ? IVSd (2D) ? 1.79 ? cm ? LVPWd (2D) ?1.03 ? cm ? IVS:LVPW ratio (2D) 1.75 ? ratio ? RWT (2D) ?0.62 ? ratio ? RWT PW (2D) ? 0.45 ? ratio ? LVIDd (2D) ?4.52 ? cm ? LVIDs (2D) ?3.63 ? cm ? LVIDd (2D) index ?2.46 ? cm/m2 ? LVIDs (2D) index ?1.98 ? cm/m2 ? LV FS (2D) ?19.76 ?% ? EF Teichholz (2D) ?? 40.68 ?% ? Ao root diameter (2D2 ?cm (2.1 - 3.6) ? Ascending Ao ?3.1 ?cm (2 - 3.5) ? Volumes/Mass ?Value ?Units (Range) ? LA Area 4 CH ?29.2 ? cm2 (<21) ? LA ESV BP (A/L) inde64.5 ? ml/m2 ? RA AREA 4CH ? 11.8 ? cm2 ? LA ESV BP (MOD) inde61.08 ?ml/m2 ? LV ESV SP 4CH (MOD) 29.47 ?ml ? LV ESV SP 2CH (MOD) 32.12 ?ml ? LV EDV BP ? 72.47 ?ml ? LV ESV BP ? 31.27 ?ml ? LV EDV BP index ? 39.48 ?ml/m2 ? LV ESV BP index ? 17.04 ?ml/m2 ? BP EF (MOD) ? 56.85 ?% ? LV mass (2D) ?252.77 ? g ? LV mass (2D) index ??137.71 ? g/m2 ? Aortic Valve ?Value ?Units (Range) ? AV Vmax ? 2.45 ? m/sec ? AV VTI ?56.09 ?cm ? AV peak gradient ?24 ? mmHg ? AV mean gradient ?14 ? mmHg ? LVOT diameter ? 1.74 ? cm ? LVOT Vmax ? 1.26 ? m/sec ? LVOT VTI ?28.24 ?cm ? LVOT peak gradient ??6.4 ?mmHg ? LVOT mean gradient ??3.59 ? mmHg ? DOI (VTI) ? 0.5 ?ratio ? DOI (Vmax) ?0.51 ? ratio ? SV LVOT ? 67.23 ?ml ? SV LVOT Index ? 36.54 ?ml/m2 ? CO LVOT ? 4.77 ? l/min ? Cardiac index ? 2.6 ?l/min/m2 ? CORINE (continuity Vmax1.2 ?cm2 ? CORINE (continuity Vmax0.67 ? cm2/m2 ? CORINE (continuity VTI)1.2 ?cm ? CORINE (continuity VTI)0.65 ? cm2/m2 ? Mitral Valve ?Value ?Units (Range) ? MV Vmax ? 1.99 ? m/sec ? MV VTI ?55.45 ?cm ? MV peak gradient ?15.86 ?mmHg ? MV mean gradient ?7 ?mmHg ? MVA (continuity VTI)1.21 ? cm2 ? Tricuspid Valve ?Value ?Units (Range) ? TR Vmax ? 3.24 ? m/sec ? TR peak gradient ?41.92 ?mmHg ? RAP ? 3 ?mmHg ? RVSP ?45 ? mmHg ? Pulmonic Valve/Qp:Qs ?Value ?Units (Range) ? DE end-diastolic Vma0.53 ? m/sec ? PA end-diastolic pre4.12 ? mmHg ? This report has been electronically signed by: Darwin Connors M.D. ? 08/30/2021 11:30:32 Images reviewed and interpretation verified [facility] Cardiac Ultrasound Laboratory Procedure Note Darwin Connors MD - 08/30/2021 Procedure: Transthoracic Echocardiogram Patient: WILLIAM Francis DOB(Age): 1940(80y) Med Rec#: [id number] Sex: F Site Loc: [facility] Ht / Wt: 158(cm)/82(kg) Pt. Loc: Echo Lab BSA: 1.84 Study Date: 08/30/2021 Pt. Type: Outpatient Tape: Referring: Harris Castillo Reading: Darwin Connors ([id number]) Tool Grinding Technician: Sherrie Peterson Diagnosis: *Nonrheumatic aortic (valve) stenosis (I35.0) Rhythm: Bundle Branch Block BP: 174/77 SUMMARY: 1. The left ventricular chamber size is [...] no change in gradient or LV function. Findings : Study Quality: Adequate Left Ventricle: The left ventricular chamber size is normal. Asymmetric septal wall hypertrophy is observed. There is no evidence of LVOT obstruction. No ventricular septal defect is visualized. There is normal global left ventricular systolic function. The quantitative left ventricular ejection fraction by biplane Olivera's method is 57%. There are no left ventricular segmental wall motion abnormalities. Assessment of diastolic function is indeterminate. due to mitral stenosis. Left Atrium: The left atrium is severely dilated. 61mL/m2. No atrial septal defect is visualized. Right Ventricle: The right ventricle is normal in size. Right ventricular global systolic function is normal. The estimated pulmonary artery systolic pressure is 45 mmHg. The estimated right atrial pressure is 3 mmHg. Right Atrium: The right atrium is normal in size. Aortic Valve: The peak instantaneous trans-valvular gradient across the aortic valve is 24 mmHg. Obtained from RSB with imaging probe. The mean trans-valvular gradient across the aortic valve is 14 mmHg. DOI = .51. SVI = 36.54mL/m2. The calculated aortic valve area is 1.2 cm2. The size of the prosthetic aortic valve is 23mm. The prosthetic aortic valve was implanted on 09/15/2020. 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 The bio-prosthetic aortic valve appears well seated with normal function. Mitral Valve: The mitral valve leaflets appear normal. There is mitral annular calcification. The mean gradient across the mitral valve is 7 mmHg. at 71bpm. There is mild mitral stenosis present. There is mild (1+/4+) mitral regurgitation present. Tricuspid Valve: The tricuspid valve leaflets are morphologically normal. There is no tricuspid valve stenosis. There is trace tricuspid regurgitation present. Pulmonic Valve: The pulmonic valve is not well visualized. There is no pulmonic stenosis present. There is trace pulmonic regurgitation present. Pericardium: There is no pericardial effusion. A pericardial fat pad is visualized. Aorta: The aortic root is normal in size. The ascending aorta is normal in size. Pulmonary Artery: The main pulmonary artery is not well visualized. Venous: The inferior vena cava appears normal in size. There is a greater than 50% respiratory change in the inferior vena cava dimension. The flow patterns of the pulmonary veins shows systolic blunting. Misc: Two-dimensional echo, spectral Doppler and color Doppler performed. Chambers 2D Value Units (Range) IVSd (2D) 1.79 cm LVPWd (2D) 1.03 cm IVS:LVPW ratio (2D) 1.75 ratio RWT (2D) 0.62 ratio RWT PW (2D) 0.45 ratio LVIDd (2D) 4.52 cm LVIDs (2D) 3.63 cm LVIDd (2D) index 2.46 cm/m2 LVIDs (2D) index 1.98 cm/m2 LV FS (2D) 19.76 % EF Teichholz (2D) 40.68 % Ao root diameter (2D2 cm (2.1 - 3.6) Ascending Ao 3.1 cm (2 - 3.5) Volumes/Mass Value Units (Range) LA Area 4 CH 29.2 cm2 (<21) LA ESV BP (A/L) inde64.5 ml/m2 RA AREA 4CH 11.8 cm2 LA ESV BP (MOD) inde61.08 ml/m2 LV ESV SP 4CH (MOD) 29.47 ml LV ESV SP 2CH (MOD) 32.12 ml LV EDV BP 72.47 ml LV ESV BP 31.27 ml LV EDV BP index 39.48 ml/m2 LV ESV BP index 17.04 ml/m2 BP EF (MOD) 56.85 % LV mass (2D) 252.77 g LV mass (2D) index 137.71 g/m2 Aortic Valve Value Units (Range) AV Vmax 2.45 m/sec AV VTI 56.09 cm AV peak gradient 24 mmHg AV mean gradient 14 mmHg LVOT diameter 1.74 cm LVOT Vmax 1.26 m/sec LVOT VTI 28.24 cm LVOT peak gradient 6.4 mmHg LVOT mean gradient 3.59 mmHg DOI (VTI) 0.5 ratio DOI (Vmax) 0.51 ratio SV LVOT 67.23 ml SV LVOT Index 36.54 ml/m2 CO LVOT 4.77 l/min Cardiac index 2.6 l/min/m2 CORINE (continuity Vmax1.2 cm2 CORINE (continuity Vmax0.67 cm2/m2 CORINE (continuity VTI)1.2 cm CORINE (continuity VTI)0.65 cm2/m2 Mitral Valve Value Units (Range) MV Vmax 1.99 m/sec MV VTI 55.45 cm MV peak gradient 15.86 mmHg MV mean gradient 7 mmHg MVA (continuity VTI)1.21 cm2 Tricuspid Valve Value Units (Range) TR Vmax 3.24 m/sec TR peak gradient 41.92 mmHg RAP 3 mmHg RVSP 45 mmHg Pulmonic Valve/Qp:Qs Value Units (Range) DE end-diastolic Vma0.53 m/sec PA end-diastolic pre4.12 mmHg This report has been electronically signed by: Sally Connors M.D. 08/30/2021 11:30:32 Images reviewed and interpretation verified [facility] Cardiac Ultrasound Laboratory Harris Castillo MD ECHO ORDERABLES documented in this encounter Visit Diagnoses Diagnosis Aortic stenosis, severe Aortic valve disorders documented in this encounter Care Teams Ticket Broker Relationship Specialty Start Date End Date Regis Muller MD [address] [place] [address] PCP - General Emergency Medicine 06/24/21 documented as of this encounter
--- OUTSIDE RECORDS SUMMARY | 2024-03-17 14:17 | XMS_ITS | Encounter Summary ---
[place] [address] Care Team Providers Care Well Logging Captain Name Role Phone Regis Muller MD Primary Care Provider [phone] Encounter Details Date Type Department Care Team (Late st Contact Info) Description 01/26/2022 Telephone [place] [phone] Roxy Live Social History Tobacco Use Types Packs/Day Years [...] encounter Miscellaneous Notes * Telephone Encounter - Roxy Live - 01/26/2022 2:37 PM EDT Call made to patient per in basket request from: Dr. Lange Patient needs: to reschedule today's missed appointment LVM for patient to call GI clinic to schedule documented in this encounter Plan of Treatment Not on file documented as of this encounter Visit Diagnoses Not on filedocumented in this encounter Care Teams Well Logging Captain Relationship Specialty Start Date End Date Regis Muller MD [address] [place] [address] PCP - General Emergency Medicine 06/24/21 documented as of this encounter
--- OUTSIDE RECORDS SUMMARY | 2024-03-17 14:17 | XMS_ITS | Clinical Summary ---
Author Organization [facility] Address [address] [place] [address] Care Team Providers Care Lawn And Tree Service Spray Supervisor Name Role Phone Hannah Gagnon MD Primary Care Provider [phone] Medications Medication Sig Dispensed Refills Start Date [...] Orientation Not on file Plan of Treatment Health Maintenance Due Date Last Done Comments RSV Immunization ( o r 60+ Years) (1 - 1-dose 60+ series) 2000 Fall Risk Screening 2005 COVID-19 Vaccine (24 season) 2023 Care Teams Lawn And Tree Service Spray Supervisor Relationship Specialty Start Date End Date Hannha Gagnon MD [address] [place] [id number] PCP - General 12/06/12
--- OUTSIDE RECORDS SUMMARY | 2024-03-17 14:17 | XMS_ITS | Encounter Summary ---
Author Organization [facility] Address [address] [place] [address] Care Team Providers Care Brake Press Operator Name Role Phone Hannah Gagnon MD Primary Care Provider [phone] Encounter Details Date Type Department Care Team (Late st Contact Info) Description 04/18/2020 Lab Requisition [facility] Pathology & Laboratory Medicine - [address] [id number] Outr Resulting Lab, Provider Social History Tobacco Use Types Packs/Day Years Used Date Smoking Tobacco: Never Assessed Sex and Gender Information Value Date Recorded Sex Assigned at Not on file Gender Identity Not on file Sexual Orientation Not on file documented as of this encounter Plan of Treatment Not on file documented as of this encounter Procedures Procedure Name Priority Date/Time Associated Diagnosis Comments ZZCOVID-19 TEST [facility] LAB PCR Today 04/18/2020 9:22 EDT COVID-19 TESTING Routine 04/18/2020 9:22 EDT documented in this encounter Results * COVID-19 TEST [facility] LAB PCR (04/18/2020 9:22 EDT) Swab ENTIRE NASOPHARYNX / Unknown 04/18/2020 9:22 EDT 04/18/2020 17:03 EDT Provider Outr Resulting Lab MICROBIOLOGY - GENERAL ORDERABLES [facility] [address] [place] [address] * COVID-19 TESTING (04/18/2020 9:22 EDT) COVID-19 rt-PCR Result Negative Negative 04/18/2020 20:[address] [facility] Comment: This test has not been FDA cleared or approved. This test has been authorized by FDA under an EUA for use by authorized laboratories. This test has been authorized only for detection of nucleic acid from 2019-nCoV, not for any other viruses or pathogens. This test is only authorized for the duration of the declaration that circumstances exist justifying the authorization of emergency use of in vitro diagnostic tests for detection and/or diagnosis of 2019-nCoV under section 564(b)(1) of Act, 21 U.S.C ?? 360bbb-3(b) (1), unless the authorization is terminated or revoked sooner. Negative results do not preclude 2019-nCoV infection and should not be used as the sole basis for treatment or other patient management decisions. Negative results must be combined with clinical observations, patient history, and epidemiological information. Performed on the doubleTwist Fusion instrument Performing Lab [facility] Lab 04/18/2020 20:[address] [facility] Swab 04/18/2020 9:22 EDT 04/18/2020 17:03 EDT Provider Outr Resulting Lab MICROBIOLOGY - GENERAL ORDERABLES [facility] [address] [place] [address] documented in this encounter Visit Diagnoses Not on filedocumented in this encounter Care Teams Brake Press Operator Relationship Specialty Start Date End Date Hannah Gagnon MD [address] [place] [address] PCP - General 12/06/12 documented as of this encounter
--- OUTSIDE RECORDS SUMMARY | 2024-03-17 14:18 | XMS_ITS | Encounter Summary ---
Author Organization [facility] [place] [address] Care Team Providers Care Carpenter Bridge Name Role Phone Reshma Baig MD Primary Care Provider [phone] Encounter Details Date Type Department Care Team (Late st Contact Info) Description 09/24/2020 Telephone Cardiology at [address] [phone] Ryan Marques, RN Social History Tobacco Use Types Packs/Day [...] encounter Miscellaneous Notes * Telephone Encounter - Ryan Marques, RN - 09/24/2020 9:49 AM EST Received VM prompt from Mounika - representing the [facility] or [place], [place] - seeking return call. Pleasant connection. Preparing blister pack prescription refills for Ms. Moody. Notes that their pharmacy does not have record of prescription below. Respectfully requests that it be re-issued, anticipating patient tack picker later today. Requested Prescriptions Pending Prescriptions Disp Refills ??? ferrous gluconate (Fergon) 324 mg (37.5 mg iron) Tablet 60 tablet 1 Sig: Take 1 tablet by mouth daily. Reviewed Epic record and discharge summary dated 09/16/2020. Prescription re- issued as requested. Refill prepped and forwarded to Provider for authorization Dilan Marques RNbrass finisher Team Nurse [facility] documented in this encounter Plan of Treatment Not on file documented as of this encounter Visit Diagnoses Not on filedocumented in this encounter Care Teams Carpenter Bridge Relationship Specialty Start Date End Date Reshma Baig MD [address] [place] [address] PCP - General Family Medicine 11/08/18 06/23/21 documented as of this encounter
--- OUTSIDE RECORDS SUMMARY | 2024-03-17 14:18 | XMS_ITS | Encounter Summary ---
Author Organization [facility] [place] [address] Care Team Providers Care Hob Mill Operator Name Role Phone Reshma Baig MD Primary Care Provider [phone] Encounter Details Date Type Department Care Team (Late st Contact Info) Description 06/14/2021 Ancillary Procedure [place] [address] Kia Reno MD [facility] [place] [address] Social History Tobacco Use Types Packs/Day Years [...] Procedure Name Priority Date/Time Associated Diagnosis Comments FILM LIBRARY STORAGE ONLY MR SPINE Routine 06/14/2021 12:00 AM EDT documented in this encounter Results * Film Library- Storage Only MR Spine (06/14/2021 12:00 AM EDT) Narrative [facility] - 12/07/2021 5:50 PM EDT This exam is auto-finalizing. It's purpose is for storage only. Kia Reno MD IMG FILM LIBRARY ORD ERABLES [place], [place] documented in this encounter Visit Diagnoses Not on filedocumented in this encounter Care Teams Hob Mill Operator Relationship Specialty Start Date End Date Reshma Baig MD [address] [place] [address] PCP - General Family Medicine 11/08/18 06/23/21 documented as of this encounter
--- OUTSIDE RECORDS SUMMARY | 2024-03-17 14:18 | XMS_ITS | Encounter Summary ---
[place] [address] Care Team Providers Care Piano Regulator Inspector Name Role Phone Reshma Baig MD Primary Care Provider Encounter Details Date Type Department Care Team (Latest Contact Info) Description 10/18/2020 12:30 PM EST Laboratory Appointment Lab [address] [address] S/P TAVR (transcatheter aortic valve replacement) Social [...] Associated Diagnosis Comments SCAN, PERIPHERAL BLOOD Routine 10/18/2020 11:56 AM EST HEMOGRAM Routine 10/18/2020 11:56 AM EST S/P TAVR (transcatheter aortic valve replacement) DIFFERENTIAL, AUTOMATED Routine 10/18/2020 11:56 AM EST S/P TAVR (transcatheter aortic valve replacement) HC VENIPUNCTURE Routine 10/18/2020 11:56 AM EST S/P TAVR (transcatheter aortic valve replacement) HC VENIPUNCTURE Routine 10/18/2020 11:52 AM EST S/P TAVR (transcatheter aortic valve replacement) documented in this encounter Results * Scan, Peripheral Blood (10/18/2020 11:56 AM EST) Pathologist [facility] Plat Estimate Normal [facility] RBC Morphology Abnormal [facility] Microcytes 1-5 /HPF [facility] Hypochromia Slight [facility] Ovalocytes 1-5 /HPF [facility] Giant Platelets Less than 1 /HPF MA RY [facility]3] LABORATORY Blood specimen (specimen) 10/18/2020 11:56 AM EST 10/18/2020 12:11 PM EST Narrative Resulting Agency Comment Spec In Lab Prashanth ARMANDO HEMATOLOGY ORDERABLE S Performing Organization Address City/State/[facility] Co de Phone Number [facility] [place] [address] * Differential, Automated (10/18/2020 11:56 AM EST) [facility] Neutrophils % 72.5 % [facility] Neutr Abs (ANC) 4.71 1.70 - 6.10 x10(3)/[facility] Lymphocytes % 15.7 % [facility] Lymphocytes Abs 1.0 0.9 - 3.2 x10(3)/[facility] Monocytes % 7.7 % [facility] Monocyte Abs 0.5 0.3 - 0.9 x10(3)/[facility] Eosinophils % 2.9 % [facility] Eosinophils Abs 0.2 0.0 - 0.4 x10(3)/[facility] Basophils % 0.9 % [facility] Basophils Abs 0.1 0.0 - 0.1 x10(3)/[facility] Immature Gran % 0.30 % [facility] Comment: Immature granulocytes(IG's)percentage and absolute count will include metamyelocytes, myelocytes, and promyelocytes. Blood smears from CBCs yielding IG's will be scanned manually for concordance. If this scan disagrees with the automated IG or if promyelocytes are noted, a manual differential will be performed. Nanci Gran Abs 0.02 0.00 - 0.04 x10(3)/mcL [facility] Blood specimen (specimen) 10/18/2020 11:56 AM EST 10/18/2020 12:11 PM EST Narrative Resulting Agency Comment Spec In Lab Prahsanth ARMANDO HEMATOLOGY ORDERABLE S [facility] [place] [address] * (ABNORMAL) Hemogram (10/18/2020 11:56 AM EST) WBC 6.5 4.0 - 9.5 x10(3)/[facility] RBC 4.25 4.00 - 5.21 x10(6)/[facility] Comment:Dimorphic RBC popula tion. Hemoglobin 10.8(L) 11.7 - 15.5 gm/dL [facility] Hematocrit 34.9(L) 35.7 - 45.8 % [facility] MCV 82.1(L) 82.6 - 94.4 fL [facility] MCH 25.4(L) 27.1 - 32.0 pg [facility] MCHC 30.9(L) 31.7 - 35.0 gm/dL [facility] Platelets 242 145 - 357 x10(3)/[facility] RDWSD Not Measured 37.0 - 46.0 fL [facility] RDWCV Not Measured 11.5 - 14.1 % [facility] MPV 10.5 7.6 - 12.9 fL [facility] nRBC % Auto 0.0 % [facility] nRBC Abs Auto 0.000 0.000 - 0.000 x10(3)/mc L [facility] Blood specimen (specimen) 10/18/2020 11:56 AM EST 10/18/2020 12:11 PM EST Narrative Resulting Agency Comment Spec In Lab Prashanth ARMANDO HEMATOLOGY ORDERABLE S [facility] [place] [address] * (ABNORMAL) Comprehensive metabolic panel (non-fasting) (10/18/2020 11:52 AM EST) Glucose Lvl 302(H) 65 - 199 mg/dL [facility] Comment:Diabetes: >=200 mg/d L plus symptoms BUN 18 8 - 18 mg/dL [facility] Creatinine 0.92 0.70 - 1.20 mg/dL [facility] Sodium 139 135 - 145 mmol/L [facility] Potassium 4.5 3.5 - 5.0 mmol/L [facility] Comment: Please note: ??Patients with WBC >100,000 may have falsely elevated Potassium levels. ??For accurate Potassium quantification in these patients send serum separator tube (gold top) for subsequent determinations. ??Contact the Clinical Chemistry Laboratory if there are any questions. Chloride 104 98 - 107 mmol/L [facility] CO2 23 22 - 31 mmol/L [facility] Anion Gap 12 5 - 15 mmol/L [facility] Calcium 9.3 8.5 - 10.5 mg/dL [facility] Total Protein 6.9 6.1 - 8.0 gm/dL [facility] Albumin 4.5 3.2 - 5.2 gm/dL [facility] AST 36(H) 0 - 30 unit/L [facility] ALT 44(H) 0 - 30 unit/L [facility] Alk Phos 125(H) 35 - 105 unit/L [facility] Total Bilirubin 0.7 0.2 - 1.3 mg/dL [facility] Estimated GFR 59(L) >=60 mL/min/1. 73 m?? [facility] Comment: This patient? s estimated glomerular filtration rate (eGFR) is between 59 mL/min/1.73 m2 (patients with less muscle mass) and 68 mL/min/1.73 m2 (patients with more muscle mass) as determined by the CKD-EPI equation. Assessment of eGFR is not appropriate when creatinine concentrations are rapidly changing. For clinical decisions where creatinine clearance will affect therapy, a 24-hour urine creatinine clearance may be advised. Assignment of CKD stage 1 ? 5 for patients with an eGFR near the transition point between stages may be based on clinical assessment of muscle mass and symptoms in addition to eGFR. Blood specimen (specimen) 10/18/2020 11:52 AM EST 10/18/2020 12:11 PM EST Narrative Resulting Agency Comment Spec In Lab Pan Hurtado MD CHEMISTRY ORDERABL ES [facility] [place] [id number] documented in this encounter Visit Diagnoses Diagnosis S/P TAVR (transcatheter aortic valve replacement) documented in this encounter Care Teams Piano Regulator Inspector Relationship Specialty Start Date End Date Reshma Baig MD [address] [place] [id number] PCP - General Family Medicine 11/08/18 06/23/21 documented as of this encounter
--- OUTSIDE RECORDS SUMMARY | 2024-03-17 14:18 | XMS_ITS | Encounter Summary ---
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; S/P balloon aortic valvuloplasty 06/24/2020; Paroxysmal atrial fibrillation; Iron deficiency anemia, unspecified iron deficiency anemia [...] Sign Reading Time Taken Comments Blood Pressure 181/53 10/18/2020 2:23 PM EST Pulse 70 10/18/2020 2:23 PM EST Temperature - - Respiratory Rate 20 10/18/2020 2:23 PM EST Oxygen Saturation 99% 10/18/2020 2:23 PM EST Inhaled Oxygen Concentration - - Weight 82.1 kg (181 lb) 10/18/2020 2:23 PM EST Height 157.5 cm (5' 2) 10/18/2020 2:23 PM EST Body Mass Index 33.11 10/18/2020 2:23 PM EST documented in this encounter Progress Notes * Maria L Green PA - 10/18/2020 3:00 PM EST Interventional Cardiology Progress Note Patient ID: Shannan Moody : 1940 This patient is a 80 y.o. year old female returning for a follow up of cardiovascular and other diagnoses listed below: Problem List: Patient Active Problem List Diagnosis ??? S/P balloon aortic valvuloplasty 06/24/2020 ??? Esophagitis, erosive ??? Anemia, iron deficiency ??? Aortic stenosis, severe Overview Note: Added automatically from request for surgery [id number] 06/24/2020: Valvuloplasty Conclusions: * Severe aortic stenosis * Valvuloplasty was performed * Successful balloon aortic valvuloplasty. 09/15/20: Successful 23 mm TF TAVR TTE 09/15/2020:SUMMARY: ?? 1. PRE-TAVR: CORINE 0.74 cm2. Peak/mean [...] effusion. See remainder of report for additional findings. ? Obesity (BMI 30.0-34.9) ??? Aortic stenosis - moderate Overview Note: 04/20/20 TTE SUMMARY:?? 1. Mild concentric left [...] by low stroke volume index (23 ml/m2). ??? Atrial fibrillation--- paroxysmal Overview Note: ?? Mar 2020: AF with RVR seen during admission with cholecystitis. ??? 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 S/P laparoscopic cholecystectomy 07/15/2020 ??? Type 2 diabetes mellitus with circulatory disorder, with long-term current use of insulin ??? Hypertension ??? Hyperlipidemia ??? Arthritis Medications: ??? ferrous gluconate (Fergon) 324 mg (37.5 mg iron) Tablet ??? acetaminophen (Tylenol) 325 mg Tablet ??? losartan (Cozaar) 50 mg Tablet ??? amoxicillin (Amoxil) 500 mg Capsule ??? lidocaine (XYLOCAINE) 5 % Ointment ??? rosuvastatin (Crestor) 20 mg Tablet ??? AMIOdarone (Cordarone; Pacerone) 200 mg Tablet ??? bisacodyl EC (Dulcolax) 5 mg Tablet, Delayed Release (E.C.) ??? clopidogreL (Plavix) 75 mg Tablet ??? polyethylene glycoL (Miralax) 17 gram Powder in Packet ??? pantoprazole EC (Protonix) 40 mg Tablet, Delayed Release (E.C.) ??? VITAMIN D 1,000 unit Capsule ??? VITAMINS B COMPLEX Tablet ??? insulin lispro (HUMALOG KWIKPEN) Insulin Pen ??? blood sugar diagnostic strips (ONETOUCH ULTRA TEST) Strip ??? insulin glargine (LANTUS SOLOSTAR) Insulin Pen ??? insulin needles, disposable, 31 gauge x 5/16 Needle ??? Blood-Glucose Meter Misc ??? 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 Notably, last march she presented with acute cholecystitis which lead to a prolonged hospitalization where she underwent balloon aortic valvuloplasty as well as PCI. Following this, she presented with several weeks of PAUL with a hgb 5.4 and she was transfused with 2u prbc. Her GI workup only revealed esophagitis. Repeat ECHO showing severe and moderate MS. She is now s/p TAVR with a relatively uneventful hospitalization following the TAVR and she was discharged on HD3. She has remained on plavix for her anticoagulation plan (ASA was previously d/c due to low Hgb). Her VS and weight remained stable during her admission. Today, she reports some ongoingfatigue with difficulty sleeping. She denies true SOB but does note that her breathing is sometimesslightly labored. She has a chronic anemia for which she has recently started taking iron, her current Hgb is the highest it has been in > 6 months at 10.8. Her fasting glucose is 302 which she istreated with insulin for. She reports her access sites in the groin have healed appropriately without significant bruising or discomfort. 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 She had a repeat TTE today which shows mild AR with significant MAC and mitral stenosis, preserved EF 65%, valve seated well with mild leak present. BP elevated today in the SBP 180's. She denies CP, angina, radiating arm pain. Physical Exam Constitutional: She is oriented to person, place, and time. She appears well- developed and well-nourished. HENT: Head: Normocephalic and atraumatic. Eyes: Pupils are equal, round, and reactive to light. Conjunctivae are normal. Neck: No JVD present. No tracheal deviation present. Cardiovascular: Normal heart sounds. Exam reveals no gallop and no friction rub. Systolic murmur, bioprosthetic aortic valve auscultated in RUSB/LUSB radiating to neck. Pulmonary/Chest: Effort normal and breath sounds normal. No stridor. No respiratory distress. She has no wheezes. She has no rales. She exhibits no tenderness. Musculoskeletal: General: No edema. Normal range of motion. Cervical back: Normal range of motion and neck supple. Neurological: She is alert and oriented to person, place, and time. Skin: Skin is warm and dry. No rash noted. No erythema. EKG: EKG: NSR with LAD and RBBB (unchanged from prior) Labs: Lab Results Component Value Date WBC 6.5 10/18/2020 HGB 10.8 (L) 10/18/2020 HCT 34.9 (L) 10/18/2020 MCV 82.1 (L) 10/18/2020 PLATELET 242 10/18/2020 Lab Results Component Value Date NA 139 10/18/2020 K 4.5 10/18/2020 CL 104 10/18/2020 CO2 23 10/18/2020 BUN 18 10/18/2020 CREATININE 0.92 10/18/2020 GLUCOSE 302 (H) 10/18/2020 GLUCFASTING 136 (H) 09/16/2020 CALCIUM 9.3 10/18/2020 ESTGFR 59 (L) 10/18/2020 Lab Results Component Value Date ALT 44 (H) 10/18/2020 AST 36 (H) 10/18/2020 ALKPHOS 125 (H) 10/18/2020 BILITOT 0.7 10/18/2020 BILIDIR 0.3 09/14/2020 ALBUMIN 4.5 10/18/2020 PROT 6.9 10/18/2020 Lipid Panel Lab Results Component Value Date CHLPL 104 04/22/2020 HDL 17 04/22/2020 CHOLHDL 6.1 04/22/2020 TRIG 237 04/22/2020 LDLCHOL 40 04/22/2020 LDLDIRECT 73 02/28/2017 Recent Labs 09/11/20 0536 04/22/20 0350 HA1C 8.3* 8.5* Imaging: TTE 09/15/20 SUMMARY: ?? 1. PRE-TAVR: CORINE 0.74 cm2. Peak/mean [...] remainder of report for additional Findings. TTE 10/18/20 SUMMARY: BP: 168/72 ?? 1. There is normal global left ventricular systolic function. Ejection fraction is estimated to be 65%. 2. Right ventricular global systolic function is normal. 3. The bio-prosthetic aortic valve appears well seated with normal function. There is trace aortic valvular regurgitation. Trace paravalvular regurgitation. 4. See remainder of report for additional findings. ?? 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 She endorses ongoing fatigue. She does have slight improvement in breathing but sometimes feels her breathing is labored. She reports despite these symptoms, she does feel overall improved since the procedure. Consideration for amio toxicity with breathing difficulty over possible thyroid, however, recent imaging of CT and XR in August 2020 do not highlight lung toxicity. I will order a TSH and check this as her last test was in March when she started the amio (normal at 1.22).She does have ongoing anemia for which her hgb has dropped precipitously in the past to 5.4 which could be causing some of her fatigue and difficulty breathing. Her hgb is stabilizing on iron therapynow and is up to 10.8. Will monitor this closely but it seems her symptoms are likely multi-factorial in nature. Her BP is quite elevated today in clinic, SBP 180's. I will increase her losartan to 10 0 mg to see if this can bring it down some. Her EKG looks unchanged from prior, she does have a RBBB at baseline, the qrs has stayed aorund 132-134 pre and post tavr and she has no episodes of presyncope or syncope. She is trying to get to cardiac rehab pending scheduling and I endorsed this. ??# s/p TAVR Aug 2020 23 mm Damián 3 RTF - continue plavix 75 mg po qd, reassess stopping at 3 months out from tavr - off aspirin due to prior bleed - TTE in 1 year - recommend cardiac rehab program - trace AI on repeat TTE, will follow on subsequent TTE #Elevated BP - increase losartan to 100 mg po qd, sent in script #Atrial fibrillation, on amiodarone - will reorder a TSH to assess for thyroid toxicity, [place] this [place] [facility] if she prefers #Anemia - continue iron therapy, hgb trending up RTC in 1 year with follow up TTE Maria L Green PA-C Interventional Cardiology [facility] Pager [phone] documented in this encounter Plan of Treatment Not on file documented as of this encounter Visit Diagnoses Diagnosis Aortic valve stenosis, etiology of cardiac valve disease unspecified Aortic stenosis, severe Aortic valve disorders 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
--- OUTSIDE RECORDS SUMMARY | 2024-03-17 14:18 | XMS_ITS | Encounter Summary ---
Author Organization [facility] Address [facility] [place] [address] Care Team Providers Care Architecture Consultant Name Role Phone Reshma Baig MD Primary Care Provider [phone] Reason for Referral * Diagnostic Test (Routine) - Closed Specialty Diagnoses / Procedures Referred By Contac t Referred To Contact Cardiology Diagnoses Aortic stenosis, severe Procedures Echocardiogram Transthoracic([facility]) Harris Castillo [place] [facility] [place] [address] [facility] [place] [address] Referral ID Status Reason Start Date Expiration Date V isits Requested Visits Authorized [id number] Closed Specialty Service Requested 05/30/2021 05/30/2022 1 1 Encounter Details Date Type Department Care Team (Late st Contact Info) Description 05/30/2021 Orders Only Cardiology at [address] [address] Nacho Warner RN Aortic stenosis, severe Social History Tobacco Use [...] documented as of this encounter Results * ECHO COMPLETE (08/30/2021 11:04 AM EST) EF 57 [facility]ART[facility] SYSTEM Anatomical Region Laterality Modality Other 08/30/2021 Narrative 08/30/2021 11:31 AM EST Procedure: ?Transthoracic Echocardiogram Patient: ?WILLIAM LAKESHIA A ? (Age): 1940(80y) Med Rec#: ? [id number] ?Sex: ?F ? Site Loc: ? [facility] ?Ht / Wt: ??158(cm)/82(kg) Pt. Loc: ?Echo Lab ?BSA: ?1.84 Study Date: ?? 08/30/2021 ?Pt. Type: Outpatient Tape: ? Referring: Harris Castillo Reading: Darwin Connors ([id number]) Machine Rigger: Sherrie Peterson Diagnosis: *Nonrheumatic aortic (valve) stenosis [...] ? Pulmonic Valve/Qp:Qs ?Value ?Units (Range) ? NC end-diastolic Vma0.53 ? m/sec ? PA end-diastolic pre4.12 ? mmHg ? This report has been electronically signed by: Darwin Connors M.D. ? 08/30/2021 11:30:32 Images reviewed and interpretation verified [facility] Cardiac Ultrasound Laboratory Procedure Note Darwin Connors MD - 08/30/2021 Procedure: Transthoracic Echocardiogram Patient: WILLIAM Francis DOB(Age): 1940(80y) Med Rec#: [id number] Sex: F Site Loc: [facility] Ht / Wt: 158(cm)/82(kg) Pt. Loc: Echo Lab BSA: 1.84 Study Date: 08/30/2021 Pt. Type: Outpatient Tape: Referring: Harris Castillo Reading: Darwin Connors ([id number]) Machine Rigger: Sherrie Peterson Diagnosis: *Nonrheumatic aortic (valve) stenosis [...] 45 mmHg Pulmonic Valve/Qp:Qs Value Units (Range) NC end-diastolic Vma0.53 m/sec PA end-diastolic pre4.12 mmHg This report has been electronically signed by: Darwin Connors M.D. 08/30/2021 11:30:32 Images reviewed and interpretation verified [facility] Cardiac Ultrasound Laboratory Harris Castillo MD ECHO ORDERABLES * (ABNORMAL) Comprehensive metabolic panel (non-fasting) (08/30/2021 9:17 AM EST) Glucose Lvl 284(H) 65 - 199 mg/dL [facility] Comment:Diabetes: >=200 mg/d L plus symptoms BUN 20(H) 8 - 18 mg/dL [facility] Creatinine 0.76 0.70 - 1.20 mg/dL [facility] Sodium 136 135 - 145 mmol/L [facility] Potassium 4.4 3.5 - 5.0 mmol/L [facility] Comment: Please note: ??Patients with WBC >100,000 may have falsely elevated Potassium levels. ??For accurate Potassium quantification in these patients send serum separator tube (gold top) for subsequent determinations. ??Contact the Clinical Chemistry Laboratory if there are any questions. Chloride 103 98 - 107 mmol/L [facility] CO2 21(L) 22 - 31 mmol/L [facility] Anion Gap 12 5 - 15 mmol/L [facility] Calcium 9.0 8.5 - 10.5 mg/dL [facility] Total Protein 6.3 6.1 - 8.0 g/dL [facility] Albumin 3.8 3.2 - 5.2 g/dL [facility] AST 56(H) 0 - 30 unit/L [facility] ALT 55(H) 0 - 30 unit/L [facility] Alk Phos 252(H) 35 - 105 unit/L [facility] Total Bilirubin 0.7 0.2 - 1.3 mg/dL [facility] Estimated GFR 74 >=60 mL/min/1. 73 m?? [facility] [...] In Lab Harris Castillo MD CHEMISTRY ORDERABLES [facility] [place] [address] documented in this encounter Visit Diagnoses Diagnosis Aortic stenosis, severe Aortic valve disorders Aortic stenosis, severe Aortic valve disorders documented in this encounter Care Teams Architecture Consultant Relationship Specialty Start Date End Date Reshma Baig MD [address] [place] [address] PCP - General Family Medicine 11/08/18 06/23/21 documented as of this encounter
--- OUTSIDE RECORDS SUMMARY | 2024-03-17 14:18 | XMS_ITS | Encounter Summary ---
Author Organization [facility] [place] [address] Care Team Providers Care Manager Title Name Role Phone Reshma Baig MD Primary Care Provider [phone] Reason for Referral * Diagnostic Test (Routine) - Closed Specialty Diagnoses / Procedures Referred By Contac t Referred To Contact Cardiology Diagnoses S/P TAVR (transcatheter aortic valve replacement) Procedures Echocardiogram Transthoracic([facility] or [facility]) Prashanth Jacob PA [facility] [place] [address] [facility] [place] [address] Referral ID Status Reason Start Date Expiration Date V isits Requested Visits Authorized [id number] Closed Specialty Service Requested 10/13/2020 04/10/2021 1 1 Reason for Visit * Diagnostic Test (Routine) - Closed Specialty Diagnoses / Procedures Referred By Contac t Referred To Contact Cardiology Diagnoses S/P TAVR (transcatheter aortic valve replacement) Procedures Echocardiogram Transthoracic([facility] or [facility]) Prashanth Jacob PA [facility] [place] [address] [facility] [place] [address] Referral ID Status Reason Start Date Expiration Date V isits Requested Visits Authorized [id number] Closed Specialty Service Requested 10/13/2020 04/10/2021 1 1 Encounter Details Date Type Department Care Team (Latest Contact Info) Description 10/18/2020 12:07 PM EST - 10/18/2020 11:59 PM EST Hospital Encounter Non[place] [id number] S/P TAVR (transcatheter aortic valve replacement) Discharge Disposition: Home Social History Tobacco Use [...] Sig Dispensed Refills Start Date End Date losartan (COZAAR) 100 mg Tablet Take 1 [...] or as needed. 200 each 3 12/02/2013 clopidogreL (Plavix) 75 mg Tablet Take 1 tablet by mouth daily. 90 tablet 3 05/08/2020 08/30/2021 documented as of this encounter Plan of Treatment Not on file documented as of this encounter Procedures Procedure Name Priority Date/Time Associated Diagnosis Comments ECHO COMPLETE Routine 10/18/2020 1:51 PM EST S/P TAVR (transcatheter aortic valve replacement) documented in this encounter Results * ECHO COMPLETE (10/18/2020 1:51 PM EST) EF 65 HEARTLAB SYSTEM Anatomical Region Laterality Modality Other 10/18/2020 Narrative 10/18/2020 2:36 PM EST Amended Report Procedure: ?Transthoracic Echocardiogram Patient: ?WILLIAM LAKESHIA A ? (Age): 1940(80y) Med Rec#: ? [id number] ?Sex: ?F ? Site Loc: ? [facility] ?Ht / Wt: ??158(cm)/79(kg) Pt. Loc: ?Echo Lab ?BSA: ?1.81 Study Date: ?? 10/18/2020 ?Pt. Type: Outpatient Tape: ? 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 168/72 SUMMARY: 1. There is normal global left ventricular systolic function. ??Ejection fraction is estimated to be 65%. 2. Right ventricular global systolic function is normal. 3. The bio-prosthetic aortic valve appears well seated with normal function. There is trace aortic valvular regurgitation. ??Trace paravalvular regurgitation. 4. See remainder of report for additional findings. Findings ? : Study Quality: ? Adequate Left Ventricle: ? The left ventricular chamber size is normal. ?There is no evidence of LVOT obstruction. ?There is normal global left ventricular systolic function. ??Ejection fraction is estimated to be 65%. ?There are no left ventricular segmental wall motion abnormalities.LV diastolic function cannot be adequately assessed due to significant MAC and calcific mitral stenosis. Left Atrium: ? The left atrium is moderately dilated. Right Ventricle: ? The right ventricle is normal in size. ?Right ventricular global systolic function is normal. ?The estimated pulmonary artery systolic pressure is 25 mmHg. ?The estimated right atrial pressure is 3 mmHg. Right Atrium: ? The right atrium is normal in size. Aortic Valve: ? The peak instantaneous trans-valvular gradient across the aortic valve is 21 mmHg.Acquired from the RSB. ?The mean trans-valvular gradient across ??the aortic valve is 12 mmHg.SVI= 34.4ml/m2. DOI= .41 ?The calculated aortic valve area is 1.64 cm2. ?The size of the prosthetic aortic valve is 23mm. 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 ?A bio-prosthetic aortic valve is present.It is known to be a Bobo Damián 3 Ultra TAVR valve. ?The bio-prosthetic aortic valve appears well seated with normal function.There is trace aortic valvular regurgitation. ??Trace paravalvular regurgitation. Mitral Valve: ? There is thickening of both mitral valve leaflets. ?Mitral valve leaflet excursion is moderately reduced. ?There is mitral annular calcification. ?The mean gradient across the mitral valve is 5 mmHg.HR 69 bpm. ?There is mild mitral stenosis present. ?There is trace mitral regurgitation present. Tricuspid Valve: ? The tricuspid valve is probably normal. ?There is trace tricuspid regurgitation present. Pulmonic Valve: ? The pulmonic valve is not well visualized. ?There is no evidence of pulmonic regurgitation. Pericardium: ? There is no pericardial effusion. ?A pericardial fat pad is visualized. Aorta: ? The aortic root is normal in size. ?The ascending aorta is normal in size. Venous: ? The inferior vena cava appears normal in size. ?There is a greater than 50% respiratory change in the inferior vena cava dimension. Misc: ? See remainder of report for additional findings. ?Two-dimensional echo, spectral Doppler and color Doppler performed. Chambers 2D ?Value ?Units (Range) ? IVSd (2D) ? 1 ?cm ? LVPWd (2D) ?1 ?cm ? IVS:LVPW ratio (2D) 1 ?ratio ? RWT (2D) ?0.48 ? ratio ? RWT PW (2D) ? 0.48 ? ratio ? LVIDd (2D) ?4.17 ? cm ? LVIDs (2D) ?2.6 ?cm ? LVIDd (2D) index ?2.31 ? cm/m2 ? LVIDs (2D) index ?1.44 ? cm/m2 ? LV FS (2D) ?37.69 ?% ? EF Teichholz (2D) ?? 68.19 ?% ? Ao root diameter (2D2.85 ? cm (2.1 - 3.6) ? Ascending Ao ?3.18 ? cm (2 - 3.5) ? Volumes/Mass ?Value ?Units (Range) ? LA Area 4 CH ?24 ? cm2 (<21) ? LA ESV BP (A/L) inde46.22 ?ml/m2 ? RA AREA 4CH ? 12 ? cm2 ? LV ESV SP 4CH (MOD) 25.88 ?ml ? LV ESV SP 2CH (MOD) 19.31 ?ml ? LV EDV BP ? 59.79 ?ml ? LV ESV BP ? 22.57 ?ml ? LV EDV BP index ? 33.09 ?ml/m2 ? LV ESV BP index ? 12.5 ? ml/m2 ? BP EF (MOD) ? 62.24 ?% ? LV mass (2D) ?135.82 ? g ? LV mass (2D) index ??75.17 ?g/m2 ? Diastolic/Systolic Function ?Value ?Units (Range) ? MV E-wave Vmax ?1.19 ? m/sec ? MV deceleration ueef071.35 ? msec ? MV A-wave Vmax ?1.68 ? m/sec ? MV E:A ratio ?0.71 ? ratio ? LV septal e' Vmax ?? 0.04 ? m/sec ? LV lateral e' Vmax ??0.05 ? m/sec ? LV average e' Vmax ??0.05 ? m/sec ? LV E:e' septal ratio29.7 ? ratio ? LV E:e' lateral rati23.76 ?ratio ? LV average E:e' rati26.4 ? ratio ? Aortic Valve ?Value ?Units (Range) ? AV Vmax ? 2.29 ? m/sec ? AV VTI ?55.74 ?cm ? AV peak gradient ?21 ? mmHg ? AV mean gradient ?12 ? mmHg ? LVOT diameter ? 2 ?cm ? LVOT Vmax ? 1.2 ?m/sec ? LVOT VTI ?22.69 ?cm ? LVOT peak gradient ??5.76 ? mmHg ? LVOT mean gradient ??3.2 ?mmHg ? DOI (VTI) ? 0.41 ? ratio ? DOI (Vmax) ?0.52 ? ratio ? SV LVOT ? 71.23 ?ml ? CO LVOT ? 4.1 ?l/min ? Cardiac index ? 2.27 ? l/min/m2 ? CORINE (continuity Vmax1.64 ? cm2 ? CORINE (continuity Vmax0.91 ? cm2/m2 ? CORINE (continuity VTI)1.28 ? cm ? CORINE (continuity VTI)0.71 ? cm2/m2 ? Mitral Valve ?Value ?Units (Range) ? MV Vmax ? 1.9 ?m/sec ? MV VTI ?54.67 ?cm ? MV peak gradient ?14.42 ?mmHg ? MV mean gradient ?5 ?mmHg ? MV PHT ?108.49 ? msec ? MVA (PHT) ? 2.03 ? cm2 ? MVA (continuity VTI)1.3 ?cm2 ? Tricuspid Valve ?Value ?Units (Range) ? RAP ? 3 ?mmHg ? RVSP ?25 ? mmHg ? Wall Motion: Segment Name ?Rest ? Base-Anteroseptal ?? Normal ? Base-Anterior ? Normal ? Base-Anterolateral ??Normal ? Base-Posterolateral Normal ? Base-Inferior ? Normal ? Base-Inferoseptal ?? Normal ? Mid-Anteroseptal ?Normal ? Mid-Anterior ?Normal ? Mid-Anterolateral ?? Normal ? Mid-Posterolateral ??Normal ? Mid-Inferior ?Normal ? Mid-Inferoseptal ?Normal ? [place]-Septal ? Normal ? [place]-Anterior ? Normal ? [place]-Lateral ?Normal ? [place]-Inferior ? Normal ? [place]-Tip ?Normal ? This report has been electronically signed by: Fang Law MD ? 10/18/2020 14:41:12 Images reviewed and interpretation verified [facility] Cardiac Ultrasound Laboratory Procedure Note Fang Law MD - 10/18/2020 Amended Report Procedure: Transthoracic Echocardiogram Patient: WILLIAM Francis DOB(Age): 1940(80y) Med Rec#: [id number] Sex: F [place] [facility] [facility] Ht / Wt: 158(cm)/79(kg) Pt. Loc: Echo Lab BSA: 1.81 Study Date: 10/18/2020 Pt. 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 There is normal global left ventricular systolic function. Ejection fraction is estimated to be 65%. 2. Right ventricular global systolic function is normal. 3. The bio-prosthetic aortic valve appears well seated with normal function. There is trace aortic valvular regurgitation. Trace paravalvular regurgitation. 4. See remainder of report for additional findings. Findings : Study Quality: Adequate Left Ventricle: The left ventricular chamber size is normal. There is no evidence of LVOT obstruction. There is normal global left ventricular systolic function. Ejection fraction is estimated to be 65%. There are no left ventricular segmental wall motion abnormalities.LV diastolic function cannot be adequately assessed due to significant MAC and calcific mitral stenosis. Left Atrium: The left atrium is moderately dilated. Right Ventricle: The right ventricle is normal in size. Right ventricular global systolic function is normal. The estimated pulmonary artery systolic pressure is 25 mmHg. The estimated right atrial pressure is 3 mmHg. Right Atrium: The right atrium is normal in size. Aortic Valve: The peak instantaneous trans-valvular gradient across the aortic valve is 21 mmHg.Acquired from the RSB. The mean trans-valvular gradient across the aortic valve is 12 mmHg.SVI= 34.4ml/m2. DOI= .41 The calculated aortic valve area is 1.64 cm2. The size of the prosthetic aortic valve is 23mm. The prosthetic aortic valve was implanted on 09/15/2020. A bio-prosthetic aortic valve is present.It is known to be a Bobo Damián 3 Ultra TAVR valve. The bio-prosthetic aortic valve appears well seated with normal function.There is trace aortic valvular regurgitation. Trace paravalvular regurgitation. Mitral Valve: There is thickening of both mitral valve leaflets. Mitral valve leaflet excursion is moderately reduced. There is mitral annular calcification. The mean gradient across the mitral valve is 5 mmHg.HR 69 bpm. There is mild mitral stenosis present. There is trace mitral regurgitation present. Tricuspid Valve: The tricuspid valve is probably normal. There is trace tricuspid regurgitation present. Pulmonic Valve: The pulmonic valve is not well visualized. There is no evidence of pulmonic regurgitation. Pericardium: There is no pericardial effusion. A pericardial fat pad is visualized. Aorta: The aortic root is normal in size. The ascending aorta is normal in size. Venous: The inferior vena cava appears normal in size. There is a greater than 50% respiratory change in the inferior vena cava dimension. Misc: See remainder of report for additional findings. Two-dimensional echo, spectral Doppler and color Doppler performed. Chambers 2D Value Units (Range) IVSd (2D) 1 cm LVPWd (2D) 1 cm IVS:LVPW ratio (2D) 1 ratio RWT (2D) 0.48 ratio RWT PW (2D) 0.48 ratio LVIDd (2D) 4.17 cm LVIDs (2D) 2.6 cm LVIDd (2D) index 2.31 cm/m2 LVIDs (2D) index 1.44 cm/m2 LV FS (2D) 37.69 % EF Teichholz (2D) 68.19 % Ao root diameter (2D2.85 cm (2.1 - 3.6) Ascending Ao 3.18 cm (2 - 3.5) Volumes/Mass Value Units (Range) LA Area 4 CH 24 cm2 (<21) LA ESV BP (A/L) inde46.22 ml/m2 RA AREA 4CH 12 cm2 LV ESV SP 4CH (MOD) 25.88 ml LV ESV SP 2CH (MOD) 19.31 ml LV EDV BP 59.79 ml LV ESV BP 22.57 ml LV EDV BP index 33.09 ml/m2 LV ESV BP index 12.5 ml/m2 BP EF (MOD) 62.24 % LV mass (2D) 135.82 g LV mass (2D) index 75.17 g/m2 Diastolic/Systolic Function Value Units (Range) MV E-wave Vmax 1.19 m/sec MV deceleration zogz237.35 msec MV A-wave Vmax 1.68 m/sec MV E:A ratio 0.71 ratio LV septal e' Vmax 0.04 m/sec LV lateral e' Vmax 0.05 m/sec LV average e' Vmax 0.05 m/sec LV E:e' septal ratio29.7 ratio LV E:e' lateral rati23.76 ratio LV average E:e' rati26.4 ratio Aortic Valve Value Units (Range) AV Vmax 2.29 m/sec AV VTI 55.74 cm AV peak gradient 21 mmHg AV mean gradient 12 mmHg LVOT diameter 2 cm LVOT Vmax 1.2 m/sec LVOT VTI 22.69 cm LVOT peak gradient 5.76 mmHg LVOT mean gradient 3.2 mmHg DOI (VTI) 0.41 ratio DOI (Vmax) 0.52 ratio SV LVOT 71.23 ml CO LVOT 4.1 l/min Cardiac index 2.27 l/min/m2 CORINE (continuity Vmax1.64 cm2 CORINE (continuity Vmax0.91 cm2/m2 CORINE (continuity VTI)1.28 cm CORINE (continuity VTI)0.71 cm2/m2 Mitral Valve Value Units (Range) MV Vmax 1.9 m/sec MV VTI 54.67 cm MV peak gradient 14.42 mmHg MV mean gradient 5 mmHg MV PHT 108.49 msec MVA (PHT) 2.03 cm2 MVA (continuity VTI)1.3 cm2 Tricuspid Valve Value Units (Range) RAP 3 mmHg RVSP 25 mmHg Wall Motion: Segment Name Rest Base-Anteroseptal Normal Base-Anterior Normal Base-Anterolateral Normal Base-Posterolateral Normal Base-Inferior Normal Base-Inferoseptal Normal Mid-Anteroseptal Normal Mid-Anterior Normal Mid-Anterolateral Normal Mid-Posterolateral Normal Mid-Inferior Normal Mid-Inferoseptal Normal [place]-Septal Normal [place]-Anterior Normal [place]-Lateral Normal [place]-Inferior Normal [place]-Tip Normal This report has been electronically signed by: Fang Law MD 10/18/2020 14:41:12 Images reviewed and interpretation verified [facility] Cardiac Ultrasound Laboratory Pan Hurtado MD ECHO ORDERABLES documented in this encounter Visit Diagnoses Diagnosis S/P TAVR (transcatheter aortic valve replacement) documented in this encounter Care Teams Manager Title Relationship Specialty Start Date End Date Reshma Baig MD [address] [place] [id number] PCP - General Family Medicine 11/08/18 06/23/21 documented as of this encounter
--- OUTSIDE RECORDS SUMMARY | 2024-03-17 14:18 | XMS_ITS | Encounter Summary ---
Author Organization [facility] Address [facility] [place] [address] Care Team Providers Care Medical Coding Auditor Name Role Phone Regis Muller MD Primary Care Provider [phone] Reason for Visit * Reason Comments Medication Refill Encounter Details Date Type Department Care Team (Late st Contact Info) Description 10/04/2020 Refill [place] [address] Davon Leung MD [facility] [place] [address] Social History Tobacco Use Types Packs/Day Years [...] on filedocumented in this encounter Care Teams Medical Coding Auditor Relationship Specialty Start Date End Date Regis Muller MD [address] [place] [address] PCP - General Emergency Medicine 06/24/21 documented as of this encounter
--- OUTSIDE RECORDS SUMMARY | 2024-03-17 14:18 | XMS_ITS | Encounter Summary ---
Author Organization [facility] [place] [address] Care Team Providers Care Yarn Texture Machine Operator Name Role Phone Reshma Baig MD Primary Care Provider [phone] Encounter Details Date Type Department Care Team (Late st Contact Info) Description 10/18/2020 2:30 PM EST Office Visit Cardiology at [address] [address] S/P TAVR (transcatheter aortic valve replacement) Social [...] as of this encounter Progress Notes * Yolanda Oreilly CCMA - 10/18/2020 2:30 PM EST EKG K[facility]Q documented in this encounter Plan of Treatment Not on file documented as of this encounter Procedures Procedure Name Priority Date/Time Associated Diagnosis Comments EKG 12-LEAD Routine 10/18/2020 2:18 PM EST S/P TAVR (transcatheter aortic valve replacement) documented in this encounter Results * EKG 12 Lead (10/18/2020 2:18 PM EST) Ventricular rate 68 BPM MUSE SYSTEM Atrial Rate 68 BPM MUSE SYSTEM P-R Interval 162 ms MUSE SYSTEM QRS Duration 134 ms MUSE SYSTEM Q-T Interval 490 ms MUSE SYSTEM QTC Calculated (Bezet) 521 ms MUSE SYSTEM Calculated P [place] 23 degrees MUSE SYSTEM Calculated R [place] -33 degrees MUSE SYSTEM Calculated T [place] 11 degrees MUSE SYSTEM INTERPRETATION Normal sinus rhythm Left axis deviation Right bundle branch block Abnormal ECG When compared with ECG of 17-SEP-2020 09:03, T wave inversion no longer evident in Anterior leads Confirmed by MD HUI, SABI ([id number]) on 10/18/2020 3:39:45 PM MUSE SYSTEM 10/18/2020 2:18 PM EST 10/18/2020 3:39 PM EST Pan Hurtado MD ECG ORDERABLES MUSE SYSTEM documented in this encounter Visit Diagnoses Diagnosis S/P TAVR (transcatheter aortic valve replacement) documented in this encounter Care Teams Yarn Texture Machine Operator Relationship Specialty Start Date End Date Reshma Baig MD [address] [place] [address] PCP - General Family Medicine 11/08/18 06/23/21 documented as of this encounter
--- OUTSIDE RECORDS SUMMARY | 2024-03-17 14:18 | XMS_ITS | Encounter Summary ---
Author Organization [facility] Address [facility] [place] [address] Care Team Providers Care Health Informatics Advisor Name Role Phone Reshma Baig MD Primary Care Provider [phone] Encounter Details Date Type Department Care Team (Late st Contact Info) Description 06/14/2021 12:05 AM EDT Ancillary Procedure [place]iology [place] [address] Kia Reno MD [facility] [place] [address] Social History Tobacco Use Types Packs/Day Years [...] LIBRARY STORAGE ONLY MR SPINE Routine 06/14/2021 12:05 AM EDT documented in this encounter Results * Film Library- Storage Only MR Spine (06/14/2021 12:05 AM EDT) Narrative [facility] - 12/07/2021 5:52 PM EDT This exam is auto-finalizing. It's purpose is for storage only. Kia Reno MD IMG FILM LIBRARY ORD ERABLES Performing Organization Address City/State/[facility] Co de Phone Number [place], [place] documented in this encounter Visit Diagnoses Not on filedocumented in this encounter Care Teams Health Informatics Advisor Relationship Specialty Start Date End Date Reshma Baig MD [address] [place] [address] PCP - General Family Medicine 11/08/18 06/23/21 documented as of this encounter
--- OUTSIDE RECORDS SUMMARY | 2024-03-17 14:18 | XMS_ITS | Encounter Summary ---
Author Organization [facility] Address [facility] [place] [address] Care Team Providers Care Parking Assistant Name Role Phone Regis Muller MD Primary Care Provider [phone] Reason for Visit * Reason Comments Medication Refill Encounter Details Date Type Department Care Team (Late st Contact Info) Description 01/04/2021 Refill Cardiology at [address] [address] Prashanth Jacob PA [facility] [place] [address] Medication Refill Social History Tobacco Use Types Packs/Day Years [...] on filedocumented in this encounter Care Teams Parking Assistant Relationship Specialty Start Date End Date Regis Muller MD [address] [place] [address] PCP - General Emergency Medicine 06/24/21 documented as of this encounter
--- OUTSIDE RECORDS SUMMARY | 2024-03-17 14:19 | XMS_ITS | Encounter Summary ---
Author Organization [facility] Address [facility] [place] [address] Care Team Providers Care Heating Operators Engineer Name Role Phone Reshma Baig MD Primary Care Provider Reason for Referral * Diagnostic Test (Routine) - Closed Specialty Diagnoses / Procedures Referred By Contac t Referred To Contact Cardiology Diagnoses S/P TAVR (transcatheter aortic valve replacement) Procedures Echocardiogram Transthoracic([facility] or [facility]) Prashanth Jacob PA [facility] [place] [address] [facility] [place] [address] Referral ID Status Reason Start Date Expiration Date V isits Requested Visits Authorized [id number] Closed Specialty Service Requested 10/13/2020 04/10/2021 1 1 * Consultation (Routine) - Specialty Diagnoses / Procedures Referred By Contact Referred To Contact Cardiac Rehabilitation Diagnoses S/P TAVR (transcatheter aortic valve replacement) Pan Hurtado MD [facility] [place] [address] Cardiac Rehab, [address] [place] [address] Referral ID Status Reason Start Date Expiration Date V isits Requested Visits Authorized [id number] Consult, Test & Treat Non DH PCP 09/18/2020 03/17/2021 36 36 * Diagnostic Test (Routine) - Closed Specialty Diagnoses / Procedures Referred By Contac t Referred To Contact Radiology Diagnoses Aortic valve stenosis, etiology of cardiac valve disease unspecified Procedures CT Cardiac for Morphology & Function Carol Reyna MD [facility] [place] [address] [facility] [place] [address] Referral ID Status Reason Start Date Expiration Date V isits Requested Visits Authorized [id number] Closed Specialty Service Requested 09/13/2020 03/11/2021 1 1 * Diagnostic Test (Routine) - Closed Specialty Diagnoses / Procedures Referred By Malini t Referred To Contact Radiology Diagnoses Aortic valve stenosis, etiology of cardiac valve disease unspecified Procedures CT Cardiac for Morphology & Function Carol Reyna MD [facility] [place] [address] [facility] [place] [address] Referral ID Status Reason Start Date Expiration Date V isits Requested Visits Authorized [id number] Closed Specialty Service Requested 09/13/2020 03/11/2021 1 1 Reason for Visit * Reason Comments Abnormal Labs hemoglobin 5.4 * Auth/Cert Specialty Diagnoses / Procedures Referred By Malini t Referred To Contact Diagnoses Anemia Procedures EMERGENCY IPI Referral ID Status Reason Start Date Expiration Date Visits Re quested Visits Authorized [id number] 1 1 Encounter Details Date Type Department Care Team (Latest Contact Info) Description 09/10/2020 4:42 PM EST - 09/18/2020 2:08 PM EST Hospital Encounter Intermediate Cardiac Care Unit [facility] [place] [address] Eamon Moser MD [facility] [address] [place] [address] Amarilys Cerna MD [facility] [place] [address] Abiodun Chun MD [facility] 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; Iron deficiency anemia, unspecified iron deficiency anemia type; S/P TAVR (transcatheter aortic valve replacement) Discharge Disposition: Home with VNA Social History Tobacco Use Types Packs/Day Years [...] Sign Reading Time Taken Comments Blood Pressure 116/88 09/18/2020 12:24 PM EST Pulse 84 09/18/2020 5:29 AM EST Temperature 37.2 ??C (99 ??F) 09/18/2020 12:24 PM EST Respiratory Rate 16 09/18/2020 12:24 PM EST Oxygen Saturation 96% 09/18/2020 12:24 PM EST Inhaled Oxygen Concentration - - Weight 78.5 kg (173 lb 1 oz) 09/18/2020 4:02 AM EST Height 157.5 cm (5' 2) 09/10/2020 4:38 PM EST Body Mass Index 31.65 09/10/2020 4:38 PM EST documented in this encounter Discharge Summaries * Prashanth Jacob PA - 09/18/2020 10:27 AM EST Inpatient - Discharge Summary Patient Name: Shannan Chaudhary Patient Age: 80 y.o. Birthdate: 1940 Language: Czech Race: White Ethnicity: Not nor Admit Date: 09/10/2020 Discharge Date: 09/16/20 Attending Physician: Pan Hurtado MD Follow-up Recommendations for Providers: ??? Please continue routine management of cardiovascular risk factors including blood pressure, lipids, glucose, etc. ??? Please note any medication changes. ??? Our office will schedule a follow-up appointment with your PCP, Reshma Baig MD, or Primary Information Assurance Analyst, in ~ 7-10 days. ??? Our office will schedule a follow-up appointment with your French Polisher, Dr. Esau Rahman in 4 weeks with a chest x-ray, EKG, Echo, CBC, and CMP. ?? Agku-[id number] interval: After initial 30 day follow-up appointment , all TAVR patients will follow-up again in one year with an echo. Inpatient Provider Contact Information: [facility] Section of Cardiac Surgery [facility] [address] FAX [phone] Discharge Diagnoses (Hospital Problems) Primary Diagnoses: Aortic stenosis, s/p transfemoral TAVR Anemia Secondary Diagnoses: Active Hospital Problems Diagnosis ??? Anemia, iron deficiency ??? S/P balloon aortic valvuloplasty 06/24/2020 ??? Esophagitis, erosive ??? Aortic stenosis, severe ??? 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 Atrial fibrillation--- paroxysmal Resolved Hospital Problems No resolved problems to display. Other Diagnoses (Chronic Problems): Active Non-Hospital Problems Diagnosis ??? Obesity (BMI 30.0-34.9) ??? Aortic stenosis - moderate ??? S/P laparoscopic cholecystectomy 07/15/2020 ??? Type 2 diabetes mellitus with circulatory disorder, with long-term current use of insulin ??? Hypertension ??? Hyperlipidemia ??? Arthritis Discharged to: Patient discharged to home Functional and Cognitive Status: At baseline Discharge Conditions/Prognosis: Stable Past Medical History: Diagnosis Date ??? Actinic keratosis 08/31/2011 ??? Diabetes ??? Seborrheic keratosis 08/31/2011 ??? Severe aortic stenosis Past Surgical History: Procedure Laterality Date ??? CT PERITONEAL DRAINAGE 04/28/2020 CT Guided Drain Peritoneal 04/28/2020 [facility] RAD CAT SCAN ??? HYSTERECTOMY, VAGINAL ??? IR BILIARY TUBE CHECK/CHANGE/REMOVE 06/03/2020 IR Biliary Tube Check/Change/Remove 06/03/2020 Jos Collins, DO [facility] INTERVENTIONL RAD ??? IR CHOLECYSTOSTOMY TUBE PLACEMENT 04/22/2020 IR Cholecystostomy Tube Placement 04/22/2020 Jos Collins, DO [facility] INTERVENTIONL RAD ??? IR DRAIN CHECK/CHANGE/REMOVE 05/19/2020 IR Drain Check/Change/Remove 05/19/2020 Jos Collins, DO [facility] INTERVENTIONL RAD ??? PRO COLONOSCOPY, DIAGNOSTIC N/A 09/12/2020 COLONOSCOPY, DIAGNOSTIC performed by Mane Avila MD at [facility] ENDOSCOPY ??? PRO LAP, CHOLECYSTECTOMY/GRAPH N/A 07/15/2020 LAPAROSCOPIC CHOLECYSTECTOMY WITH CHOLANGIOGRAM (WRVU 11.47) performed by Hong Rosenthal MD at [facility] MAIN OR ??? PRO UPPER GI ENDOSCOPY, BIOPSY N/A 09/12/2020 EGD WITH BIOPSY (WRVU 2.49) performed by Mane Avila MD at [facility] ENDOSCOPY ??? PRO UPPER GI ENDOSCOPY, DIAGNOSTIC N/A 05/03/2020 EGD, UPPER GI ENDOSCOPY performed by Brigitte Graf MD at [facility] ENDOSCOPY Prior To Admission Medications Medications Prior to Admission Medication Sig Dispense Refill Last Dose ??? lidocaine (XYLOCAINE) 5 % Ointment ??? metoprolol succinate XL (Toprol-XL) 100 mg Tablet Sustained Release 24 hr Take 2 tablets by mouth nightly. 30 tablet 12 ??? rosuvastatin (Crestor) 20 mg Tablet Take [...] by mouth daily. 14 each 0 ??? losartan (Cozaar) 25 mg Tablet Take 1 tablet by mouth daily. 90 tablet 3 ??? pantoprazole EC (Protonix) 40 mg Tablet, Delayed Release (E.C.) Take 1 tablet by mouth 2 times daily. (Patient not taking: Reported on 09/10/2020) 90 tablet 3 ??? VITAMIN D 1,000 unit Capsule take 1 capsule by mouth daily 0 ??? VITAMINS B COMPLEX Tablet take 1 capsule by mouth once daily 0 ??? [DISCONTINUED] fluocinolone acetonide (SYNALAR) 0.01 % Solution Apply twice daily to itchy areas and scalp (Patient not taking: Reported on 09/10/2020) 60 mL 3 ??? [DISCONTINUED] metroNIDAZOLE (METROCREAM) 0.75 % Cream Apply twice daily to face after washing (Patient not taking: Reported on 09/10/2020) 45 g 3 ??? insulin lispro (HUMALOG KWIKPEN) Insulin [...] 10.65 400 each 3 ??? Blood-Glucose Meter [facility] One Touch Ultra Brand, 250.02. 1 each 0 ??? Lancets Misc Use twice daily or as needed. 200 each 3 Updated Allergies/ADRs: No Known Allergies History of Presentation Shannan Chaudhary is a 80 y.o. female with prior cardiac history notable for severe , obstructivecoronary artery disease, and paroxysmal A. fib. She presented last March with acute cholecystitis.This led to a prolonged hospital course where she underwent balloon aortic valvuloplasty as well asPCI. Her cholecystitis was initially managed with a PERC tube followed by dalia david in June. She was seen in clinic on 09/[address] Rahman where she appeared pale and complained of several weeks of dyspnea on exertion. Her hemoglobin was 5.4,, her aspirin was held and she was admitted for further work-up of her anemia. She was transfused 2 units of blood with an appropriate rise in her hem oglobin which is remained stable since then. GI performed upper endoscopy and colonoscopy revealingonly esophagitis. Repeat echo was performed showing severe and moderate MS. Cardiac surgery is now consulted for evaluation of surgical versus transcatheter intervention of her valvular disease. Her past medical history is otherwise significant for hypertension, hyperlipidemia, insulin-dependentdiabetes, and obesity. She has paroxysmal A. fib and is not on anticoagulation due to history of bleeding. She has no history of TIA or stroke. Major Procedures/Operations: 09/12/20: Upper GI endoscopy, colonoscopy 09/15/20: Successful 23 mm TF TAVR Hospital Course: Shannan Chaudhary was admitted to [facility] on 09/10/2020 via admission from clinic to the Cardiology Service. Hx of GI Bleed GI Malignancy work-up Anemia, concern for blood loss anemia [place] Gastroenterology was consulted and she underwent EGD and colonoscopy on 09/12/20. This showed Z-lineregular, exudate in the lower 1/3rd of the esophagus, no underlying erosions/ulcerations, lkely represents healing of previous Grade D esophagitis. Normal stomach. Biopsied. Normal examined duodenum. Severe s/p TF TAVR She was brought to the syrup machine laborer 09/16/[address] Pan Hurtado and Esau Rahman and their teams performed a transfemoral TAVR. She tolerated the procedure and was brought to the CardiacCath Recovery Unit and then to the Step Down Unit. Routine postoperative and home medications were started and a diet was advanced. She showed no new bundle branch block and her groins were soft without hematoma. She was seen by Physical Therapy and Cardiac Rehabilitation. The remainder of the her hospital course was uneventful and by postoperative day #3 she had met all criteria for discharge. Pain was controlled on oral medications. She had walked 5 minutes and gone up and down stairs. She was tolerating a regular diet. Anticoagulation Plan: Plavix Vital Signs at Discharge: Last set of vitals: BP 167/58 (BP Location (NBP): Left arm, Patient Position: Sitting) Pulse 84 Temp 36.7 ??C (98.1 ??F) (Oral) Resp 16 Ht 157.5 cm (5' 2) Wt 78.5 kg (173 lb 1 oz) SpO2 95% BMI 31.65 kg/m?? Patient Vitals for the past 168 hrs: Weight 09/18/20 0402 78.5 kg (173 lb 1 oz) 09/17/20 0500 79 kg (174 lb 2.6 oz) 09/16/20 0317 79 kg (174 lb 2.6 oz) 09/15/20 0500 77.7 kg (171 lb 4.8 oz) 09/14/20 0504 78.4 kg (172 lb 13.5 oz) 09/13/20 0536 77.2 kg (170 lb 3.1 oz) 09/12/20 0656 77.1 kg (169 lb 15.6 oz) Current weight: 78.5 kg Admit/Preop weight: 77.7 kg Pertinent physical exam findings prior to discharge: General: alert laying in bed Neuro: A&Ox3 nfd diaz Lungs: LS clear dim bibasilar Heart: rrr, s1s2, no mrg Abdomen: soft nt nd +bs Ext: wwp trace edema Incisions: cdi Important Studies and Lab Data: Lab Results Component Value Date WBC 7.1 09/18/2020 RBC 3.47 (L) 09/18/2020 HGB 8.2 (L) 09/18/2020 HCT 27.2 (L) 09/18/2020 PLATELET 152 09/18/2020 Recent Labs 09/16/20 0220 INR 1.2 Lab Results Component Value Date NA 139 09/17/2020 K 3.9 09/17/2020 CL 108 (H) 09/17/2020 CO2 21 (L) 09/17/2020 BUN 15 09/17/2020 CREATININE 0.93 09/17/2020 Immunizations Given this Hospitalization: There is no immunization history on file for this patient. Smoking Status at Discharge: Social History Tobacco Use Smoking Status Never Smoker Smokeless Tobacco Never Used Discharge Medications: Your Medications New Medications Dose Details acetaminophen 325 mg Tab Commonly known as: Tylenol Take 2 tablets by mouth every 4 hours as needed. 650 mg Refills: 0 amoxicillin 500 mg Cap Commonly known as: Amoxil Take 4 capsules by mouth 30-60 min prior to dental procedure. Quantity: 4 capsule Refills: 3 ferrous gluconate 324 mg (37.5 mg iron) Tab Commonly known as: Fergon Take 1 tablet by mouth daily. 324 mg Quantity: 60 tablet Refills: 1 Continued medications with new dosing Dose Details losartan 50 mg Tab Commonly known as: Cozaar Take 1 tablet by mouth daily. Start taking on: September 19, 2020 What changed: ?? medication strength ?? how much to take 50 mg Quantity: 90 tablet Refills: 3 Continued medications, unchanged Dose Details AMIOdarone 200 mg Tab Commonly known as: Cordarone; Pacerone Take 1 tablet by mouth 2 times daily. 200 mg Quantity: 30 tablet Refills: 11 bisacodyl EC 5 mg Tbec Commonly known as: Dulcolax Take 2 tablets by mouth daily as needed for Constipation. 10 mg Quantity: 30 tablet Refills: 0 blood sugar diagnostic strips [facility] Commonly known as: OneTouch Ultra Test 1 each by Other route 3 times daily (before meals). Diag code E10.65 1 each Quantity: 300 each Refills: 3 Blood-Glucose Meter [facility] One Touch Ultra Brand, 250.02. Quantity: 1 each Refills: 0 clopidogreL 75 mg Tab Commonly known as: Plavix Take 1 tablet by mouth daily. 75 mg Quantity: 90 tablet Refills: 3 insulin glargine 100 unit/mL (3 mL) pen Commonly known as: Lantus Solostar U-100 Insulin Inject 27 Units subcutaneously 2 times daily. 27 Units Quantity: 50 mL Refills: 3 insulin lispro Inpn Commonly known as: humaLOG KwikPen Inject 15-20 Units subcutaneously 3 times daily (before meals). ICD 10 Code: E11.65 15-20 Units Quantity: 45 mL Refills: 2 insulin needles (disposable) 31 gauge x 5/16 Ndle Inject 1 each subcutaneously 6 times daily. 10.65 1 each Quantity: 400 each Refills: 3 lancets Misc Use twice daily or as needed. Quantity: 200 each Refills: 3 lidocaine 5 % Oint Commonly known as: XYLOCAINE Refills: 0 pantoprazole EC 40 mg Tbec Commonly known as: Protonix Take 1 tablet by mouth 2 times daily. 40 mg Quantity: 90 tablet Refills: 3 polyethylene glycoL 17 gram Pwpk Commonly known as: Miralax Take 17 g by mouth daily. 17 g Quantity: 14 each Refills: 0 rosuvastatin 20 mg Tab Commonly known as: Crestor Take 1 tablet by mouth every evening. 20 mg Quantity: 90 tablet Refills: 3 Vitamin D 25 mcg (1,000 unit) Cap take 1 capsule by mouth daily Generic drug: cholecalciferol (Vitamin D3) Refills: 0 Vitamins B Complex Tab take 1 capsule by mouth once daily Generic drug: b complex vitamins Refills: 0 STOPPED Medications aspirin 81 mg Chew dulaglutide 0.75 mg/0.5 mL Pnij fluocinolone acetonide 0.01 % Soln Commonly known as: SYNALAR metoprolol succinate XL 100 mg Tablet sr Commonly known as: Toprol-XL metroNIDAZOLE 0.75 % Crea Commonly known as: METROCREAM oxyCODONE 5 mg Tab Commonly known as: Roxicodone Victoza 2-Colten 0.6 mg/0.1 mL (18 mg/3 mL) Pnij Generic drug: liraglutide TAVR Discharge Instructions: Call your doctor if: You have a fever of greater than 101 degrees, shaking chills, if you develop redness or drainage from your incision sites, or if you have questions. Please call your surgeon's office if you have any discharge or drainage from your chest incision. Please call your InterventionalCardiologist's office if you have any discharge or drainage from your procedural sites. Your French Polisher, Dr. Esau Rahman and/or the Tanker Truck Driver may be reached at . You may also contact KAMI Mayberry RN, TAVR Databases Computer Consultant at [phone] with any questions or issues. Antibiotic prophylaxis: You will need to take antibiotics prior to many invasive tests and treatments, such as dental cleaning, which should be done every 6 months. Your primary care physician or your dentist can prescribe this medication. A one time prescription has been ordered for you today. Anyfuture refills should go through your PCP or Dentist. Please refer to the card with the [place] [employer] Guidelines for more information. You have been provided with a copy of this card. Please refer to the [place] [employer] Guidelines for more information. Good dental care is important for your overall health. We recommend waiting ~3 months before returning to your dentist except in cases of emergency. Activity level: Walk three times a day. You should continue to increase your walks by 1-2 minutes each day. It is expected that you will be walking 20-30 minutes twice a day within 3-4 weeks after discharge to home. Rest between activities and after meals. Use common sense, don't exhaust yourself. Home activities: You may resume your usual home activities such as housekeeping and chores; allowing time to rest as needed. Sexual activity: You may engage in sexual activity when you feel ready. Stairs: There are no restrictions on stair climbing. Use common sense. Don't exhaust yourself. Activities outside the home: After the first week home you may go out to dinner, visit friends, go to a movie, go to nondenominational, etc. Heavy activities: No hunting, skiing, jogging, snow shoveling, snowmobiling, lawn mowing, swimming,golf or tennis until after your return appointment with the surgeon. Do not ride motorcycles, ATV'stractors or horses. Smoking: It is very important that you not smoke after surgery. Smoking cessation education was provided as appropriate. If you need further assistance with this please call and you will be referred to a smoking cessation specialist. Medications: Take only those medications listed on your discharge information. Keep your pain undercontrol so you can be active, do your coughing and breathing exercises and sleep. Contact us if thepain medication isn't working for you. Do not take any herbal preparations until after you return to see the surgeon. Diet: You should follow a regular diet until your appetite returns to normal. At that point in timeyou should resume a low fat, low cholesterol, [place] [employer] Diet. Driving: No driving for 3 days. Shower/Bath: You may shower daily. No baths, soaking, or swimming until cleared by your surgeon. Wound care: Please remove your dressings 48 hours after your procedure. Wash your incisions daily with antibacterial soap and rinse well, pat dry. Assess for any signs of infection such as increased redness, pain, warmth or drainage. Please call your tail board worker's office if you haveany discharge or drainage from your procedural sites. If there is a lot of swelling, apply yakelin wraps during the day and remove at bedtime. Elevate your legs when you are sitting. Home oxygen therapy: N/A Follow up appointments: ??? Our office will schedule a follow-up appointment with your PCP, Reshma Baig MD, or Primary Information Assurance Analyst, in ~ 7-10 days. ??? Our office will schedule a follow-up appointment with your French Polisher, Dr. Esau Rahman, in 4 weeks with a chest x-ray, EKG, Echo, and labs prior to your appointment. ?? Vfls-Gcjhyp-kw interval: After initial 30 day follow-up appointment , all TAVR patients will follow-up again in one year with an echo. Cardiac Rehabilitation: Shannan Francis Heidy was seen today regarding participation in the outpatient Phase 2 Cardiac Rehabilitation at [facility]. The patient agrees to a referral to this program. The referral will be sent at discharge and the patient should be contacted by the Program within 1- 2 weeks from discharge. Future Appointments and Orders Future Appointments and Orders Future Appointments Provider Department Dept Phone 10/18/2020 12:30 PM LAB, THREE L Lab [address] [place] [address] Arrive at: Cyber Systems Operations Specialist Area [phone] 10/18/2020 1:00 PM ECHO REGULAR Non-Invasive Cardiology Lab [facility] Arrive at: Cyber Systems Operations Specialist Area [phone] 10/18/2020 2:30 PM NURSE, CARDIOLOGY Cardiology at [facility] Arrive at: [facility] Area [phone] 10/18/2020 3:00 PM Maria L Green PA Cardiology at [facility] Arrive at: [facility] Area [phone] Future Orders Complete By Expires CBC (with Diff) [[id number] Custom] 10/19/2020 (Approximate) 03/18/2021 Process Instructions: INCLUDES: WBC, RBC, Hgb, Hct, Platelets, RBC Indices and Differential Scheduling Instructions: Comments: Questions: Comprehensive metabolic panel (non-fasting) [LAB17 Custom] 10/19/2020 (Approximate) 03/18/2021 Process Instructions: INCLUDES: Calcium, T Protein, Albumin, AST, ALT, Alk Phos, T Bili, BUN, Creat, GFR, Glucose, Lytes. Scheduling Instructions: Comments: Questions: Echocardiogram Transthoracic([facility] or [facility]) [71573 CPT(R)] 10/19/2020 (Approximate) 03/18/2021 Process Instructions: Scheduling Instructions: Questions: Is a Bubble Study requested?: Does the patient have Congenital Heart Disease?: GA rationale: Does patient require sedation?: Where should this exam be performed?: [facility] EKG 12 Lead [04990 CPT(R)] 10/19/2020 (Approximate) 03/18/2021 Process Instructions: Scheduling Instructions: Questions: Which DH location will this be performed?: [place] Is a rhythm strip needed?: No XR Chest PA & Lateral (Generic) [44566 18602 Custom] 10/19/2020 (Approximate) 03/18/2021 Process Instructions: Scheduling Instructions: Questions: Where will study be performed?: [facility] Radiology Portable exam?: Reason for exam and clinical history: s/p TAVR Clinical information / sanchez questions: Stat read required?: Date of injury if applicable: Requested Time: Referral to Cardiac Rehab [ZXK732 Custom] As directed Process Instructions: If no progress note charted, please enter Clinical details in comments. Scheduling Instructions: Questions: My question or request is: TAVR- CR at [facility] Referral to Home Health - at DISCHARGE [FFK5508 CPT(R)] As directed Process Instructions: Scheduling Instructions: Comments: DOCUMENTATION FOR VNA SERVICES (INCLUDING THOSE PATIENTS WITH MEDICARE COVERAGE REQUIRING HOME VNA SERVICES AND/OR HOSPICE SERVICES) PATIENT'S LOCATION: Shannan Farley[address] [address] (home) Telephone Information: Rim Fire Priming Operator's Name: patient In discussion with the attending physician, it is certified that this patient is under their care and that they, or a Nurse Practitioner, or Physician Skeins Yarn Examiner who is working directly with them, hada face to face encounter that meets the physician face to face encounter requirements with this patient on 09/18/20 The encounter with the patient was in whole, or in part, for the following medical condition, whichis the primary reason for home health care services: TAVR In discussion with the provider, it is certified that, based on their findings, the following services are medically necessary for home health services. To provide the following care/treatments with the clinical findings supporting the need for services as follows: HOME HEALTH AGENCY: [facility] PHONE: [phone] FAX: [phone] RN orders: Cardiopulmonary assessment, incisional assessment, assess vital signs, assessment of rehab progress, medication management and effectiveness, home safety evaluation. PT ORDERS: Continue rehab for endurance, gait stability and strength with mobility and transfers. Home safety evaluation. Home exercise program if appropriate. Start of Care Date:24 to 48 hours after discharge SPECIAL INSTRUCTIONS: For any follow up questions, needs, or issues please call the Cardiac SurgeryOffice at [phone] FOR MEDICARE ONLY: (please delete this section if not Medicare) In discussion with the attending physician, it is certified that the clinical findings support thatthis patient is homebound i.e. absences from home require considerable and taxing effort due to: Restricted mobility and poor activity tolerance due to recent cardiac surgery. Patient requires assistance of another person to leave the home. Home Health agencies which cover the area of patient's residence have been reviewed, either verbally or in writing, and patient/family have chosen the agency as noted. Questions: Agency name and contact information: [facility] Patient location post discharge: Home What services are requested: Registered Nurse Physical Therapy Start date: Responsible MD post discharge contact info: PCP Walker standard [EQ135 Custom] As directed Process Instructions: Scheduling Instructions: Comments: Shannan Chaudhary [address] [facility] [address] [place] [phone] (home) Telephone Information: Diagnosis:severe anemia, s/p TAVR with Unsteady gait Significant weakness, ataxia or gait abnormality Patient's: Hgt: 5'2 Wgt: 174 lbs VENDOR: [facility] Ordering: Front wheel walker Deliver to pt's hospital room #: 445 Questions: Vendor Name/Contact information: [facility] Discharge References/Attachments EGD (Upper Endoscopy): Post-op (Czech) Colonoscopy: Post-op (Czech) Arrangements for VNA/home care: As above. Signed: Prashanth Jacob PA-C [facility] Section of Cardiac Surgery Date: 09/18/2020 CC: MD Safia Mcdonald Linda, MD [address] [place] [phone] documented in this encounter Discharge Instructions * Patient Instructions* Prashanth Jacob PA - 09/18/2020 10:28 AM EST ? TAVR Discharge Instructions: Call your doctor if: You have a fever of greater than 101 degrees, shaking chills, if you develop redness or drainage from your incision sites, or if you have questions. Please call your surgeon's office if you have any discharge or drainage from your chest incision. Please call your InterventionalCardiologist's office if you have any discharge or drainage from your procedural sites. Your French Polisher, Dr. Esau Rahman and/or the Tanker Truck Driver may be reached at . ?? You may also contact KAMI Mayberry RN, TAVR Databases Computer Consultant at [phone] with any questions or issues. ?? Antibiotic prophylaxis: You will need to take antibiotics prior to many invasive tests and treatments, such as dental cleaning, which should be done every 6 months. Your primary care physician or your dentist can prescribe this medication. A one time prescription has been ordered for you today. Anyfuture refills should go through your PCP or Dentist. Please refer to the card with the [place] [employer] Guidelines for more information. You have been provided with a copy of this card. Please refer to the [place] [employer] Guidelines for more information. Good dental care is important for your overall health. We recommend waiting ~3 months before returning to your dentist except in cases of emergency. ?? Activity level: Walk three times a day. You should continue to increase your walks by 1-2 minutes each day. It is expected that you will be walking 20-30 minutes twice a day within 3-4 weeks after discharge to home. Rest between activities and after meals. Use common sense, don't exhaust yourself. ?? Home activities: You may resume your usual home activities such as housekeeping and chores; allowing time to rest as needed. ?? Sexual activity: You may engage in sexual activity when you feel ready. ?? Stairs: There are no restrictions on stair climbing. Use common sense. Don't exhaust yourself. ?? Activities outside the home: After the first week home you may go out to dinner, visit friends, go to a movie, go to nondenominational, etc. ?? Heavy activities: No hunting, skiing, jogging, snow shoveling, snowmobiling, lawn mowing, swimming,golf or tennis until after your return appointment with the surgeon. Do not ride motorcycles, ATV'stractors or horses. ?? Smoking: It is very important that you not smoke after surgery. Smoking cessation education was provided as appropriate. If you need further assistance with this please call and you will be referred to a smoking cessation specialist. ?? Medications: Take only those medications listed on your discharge information. Keep your pain undercontrol so you can be active, do your coughing and breathing exercises and sleep. Contact us if thepain medication isn't working for you. Do not take any herbal preparations until after you return to see the surgeon. ?? Diet: You should follow a regular diet until your appetite returns to normal. At that point in timeyou should resume a low fat, low cholesterol, [place] [employer] Diet. ?? Driving: No driving for 3 days. ?? Shower/Bath: You may shower daily. No baths, soaking, or swimming until cleared by your surgeon. ?? Wound care: Please remove your dressings 48 hours after your procedure. Wash your incisions daily with antibacterial soap and rinse well, pat dry. Assess for any signs of infection such as increased redness, pain, warmth or drainage. Please call your tail board worker's office if you haveany discharge or drainage from your procedural sites. If there is a lot of swelling, apply yakelin wraps during the day and remove at bedtime. Elevate your legs when you are sitting. ?? Home oxygen therapy: N/A ?? Follow up appointments: ?? Our office will schedule a follow-up appointment with your PCP, Reshma Baig MD, or Primary Information Assurance Analyst, in ~ 7-10 days. ?? Our office will schedule a follow-up appointment with your French Polisher, Dr. Esau Rahman, in 4 weeks with a chest x-ray, EKG, Echo, and labs prior to your appointment. ? Vfok-Rjcqop-dx interval: After initial 30 day follow-up appointment , all TAVR patients will follow-up again in one year with an echo. ?? Cardiac Rehabilitation: Shannan Chaudhary??was seen today regarding participation in the outpatient Phase 2 Cardiac Rehabilitation at [facility]. The patient agrees to a referral to this program.? The referral will be sent at discharge and the patient should be contacted by the Program within 1- 2 weeks from discharge. ?? * Attachments The following attachments cannot be sent through Care Everywhere. * EGD (Upper Endoscopy): Post-op (Czech) * Colonoscopy: Post-op (Czech) documented in this encounter Medications at Time of Discharge Medication Sig Dispensed Refills Start Date End Date acetaminophen (Tylenol) 325 mg Tablet Take 2 [...] Brand, 250.02. 1 each 0 12/02/2013 Lancets [facility] Use twice daily or as needed. 200 each 3 12/02/2013 ferrous gluconate (Fergon) 324 mg (37.5 mg iron) Tablet Take 1 tablet by mouth daily. 60 tablet 1 09/18/2020 09/24/2020 losartan (Cozaar) 50 mg Tablet Take 1 tablet by mouth daily. 90 tablet 3 09/19/2020 10/18/2020 clopidogreL (Plavix) 75 mg Tablet Take 1 tablet by mouth daily. 90 tablet 3 05/08/2020 08/30/2021 documented as of this encounter Progress Notes * Leandra Paz, SUPERVISORY FORESTER - 09/18/2020 1:14 PM EST Physical Therapy Note Treatment Number PT: 4 Patient profile: Shannan Chaudhary??is a 80 y.o.??female??with who is Post- Op??TF TAVR. PMH of Severe s/p balloon valvuloplasty (05/2020), CAD s/p PCI to RCA (04/21/20), pAFib not on AC, recent acute cholecystitis (03/2020), anemia readmitted 09/10/20, HTN, HLD, IDDM, obesity, RBBB baseline ?? 24h Events: Per patient and RN patient had fall in bathroom, no injury reported but no note from RN. No other acute events ?? 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 ?? Precautions/Special Considerations:??universal ? Mobility and Positioning Recommendations: ?? Pt. to utilize??FWW with supervision or without walker with close supervision??for ambulation and transfers??with nursing. ?? Please encourage up to chair for meal times as able. ?? Pt encouraged to ambulate frequently with staff, getting into the bathroom for toileting and walking out in the kaufman >/= 3 times daily as able ?? Subjective: I am doing better today. ?? Objective: Patient seen for physical therapy and demonstrated the following: ?? Pain: 0/10 ? Vital Signs: Stable ? Supine><sit Indep ?? Sit to stand modified indep with walker in place ?? Ambulated 160 feet with FWW modified indep ?? Pt ed: re use of walker at home. ?? Positioned for comfort, all needs met. ? Assessment: Shannan Tito Chaudhary was seen today for physical therapy treatment session for continuation of POC. Patient with improved overall ambulation. No LOB noted during session. All goals met per primary PT. ?? Discharge Recommendations: Anticipated Discharge Disposition: home with home health, home with assist ?? Consult Recommendations: No other consults recommended at this time. ?? Equipment needs: Rolling walker ?? Goals:to be met by 09/19: MET 1. Pt independent with bed mobility. 2. Pt independent with sit to stand and bed to cc with walker, I'ly. 3. Pt ambulated independently 160 ft on level with FWW or LRD. Plan: Therapy Frequency: monitor for as outlined in initial evaluation. Patient agrees with plan asstated. Total Evaluation Minutes, Physical Therapy: 10(TE-F 1 Time in 10:45-10:55) LEANDRA PAZ PTA Pager: [phone] Physical Therapy Inpatient Rehabilitation Department * Renetta Contreras Wero, OT - 09/18/2020 12:30 PM EST Occupational Therapy Evaluation Patient profile: Shannan Chaudhary is a 80 y.o. female with PMH of Severe s/p balloon valvuloplasty (05/2020), CAD s/p PCI to RCA (04/21/20), pAFib not on AC, recent acute cholecystitis (03/2020), and anemia, admitted on 09/10/2020 with anemia and fatigue, now s/p TAVR on 09/15. Past Medical History: Diagnosis Date ??? Actinic keratosis 08/31/2011 ??? Diabetes ??? Seborrheic keratosis 08/31/2011 ??? Severe aortic stenosis Past Surgical History: Procedure Laterality Date ??? CT PERITONEAL DRAINAGE 04/28/2020 CT Guided Drain Peritoneal 04/28/2020 [facility] RAD CAT SCAN ??? HYSTERECTOMY, VAGINAL ??? IR BILIARY TUBE CHECK/CHANGE/REMOVE 06/03/2020 IR Biliary Tube Check/Change/Remove 06/03/2020 Jos Collins, DO [facility] INTERVENTIONL RAD ??? IR CHOLECYSTOSTOMY TUBE PLACEMENT 04/22/2020 IR Cholecystostomy Tube Placement 04/22/2020 Jos Collins, DO [facility] INTERVENTIONL RAD ??? IR DRAIN CHECK/CHANGE/REMOVE 05/19/2020 IR Drain Check/Change/Remove 05/19/2020 Jos Collins, DO [facility] INTERVENTIONL RAD ??? PRO COLONOSCOPY, DIAGNOSTIC N/A 09/12/2020 COLONOSCOPY, DIAGNOSTIC performed by Mane Avila MD at [facility] ENDOSCOPY ??? PRO LAP, CHOLECYSTECTOMY/GRAPH N/A 07/15/2020 LAPAROSCOPIC CHOLECYSTECTOMY WITH CHOLANGIOGRAM (WRVU 11.47) performed by Hong Rosenthal MD at [facility] MAIN OR ??? PRO UPPER GI ENDOSCOPY, BIOPSY N/A 09/12/2020 EGD WITH BIOPSY (WRVU 2.49) performed by Mane Avila MD at [facility] ENDOSCOPY ??? 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 She says it is w/c accessible. She has a stall shower with a seat and grab bar. She does not have grab bars around the toilet. DME: shower seat, grab bars Baseline ADL/Mobility: Pt was independent SUPERVISORY FORESTER. She ambulated w/o a device, managed her ADL's and IADL's. 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 She reports being very tired prior to admission. Pt reports her granddaughter can check on her and assist her if needed (but not stay with her). Precautions/Special Considerations: at risk to fall, SBP<140 Subjective: I feel so much better than I did yesterday. I was so tired yesterday. Objective: Seen today for OT evaluation and self-care/discharge planning. Cognitive Status/Behavior: ?? Behavior / Mood: alert and cooperative ?? Alert and oriented to: person, place, time and situation ?? Follows commands: 1 step and 100% of the time ?? Attention: WFL ?? Safety awareness: WFL Vision & Perception: ?? corrective lenses time study technologist Communication: WFL Range of motion, strength, coordination: Hand dominance: right Bilateral UEs are within functional limitations for strength and ROM LE limitations: pain at R groin site w/ bruising and some pain w/ flexion at R hip Sensation: denies numbness/tingling Activities of Daily Living: Self-feeding: independent Grooming: could complete standing w/ FWW and supervision Dressing: able to don socks, pants and shoes w/ supervision; able to bend over w/o dizzinesss Bathing: able to demo ability to step high over a threshhold into her stall shower, discussed use of grab bar and using shower seat for energy conservation Toileting: Transfer: supervision w/ FWW (without use of grab bars, doesn't have them at home) Hygiene: reports independent, did not observe Educated re: positioning w/ walker for IADL tasks (how to bridge surfaces, avoiding carrying items while using a walker, keeping it square with their hips); also educated re: pacing and energy conservation w/ ADL and IADL tasks. Functional Mobility: Sitting EOB upon arrival Sit to stand: supervision Ambulation: pt ambulated into the bathroom with FWW and supervision, no LOB, no SOB Stand to sit: supervision Sit to supine: supervision Balance: Sitting balance: good Standing balance: good w/ FWW Vitals: Stable, disconnected from monitors in preparation for d/c Pain: reported mild pain at R groin site, but tolerable Skin: bruising but no hematoma around groin site Education: patient have been educated on Role of occupational therapy/rehabilitation, Transfers, Assistive device/technique, ADL, Exercise, Positioning, Safety, Functional Mobility, Activity pacing/Energy conservation, Home Management, Balance, Recommendations and Discharge planning and verbalizes understanding. Patient status, treatment, and mobility recommendations discussed with nursing. Assessment: Pt was seen for an occupational therapy evaluation. Shannan Francis Heidy presents with thefollowing performance skill deficits and client factors: mild R groin site discomfort, decreased activity tolerance and decreased standing balance requiring use of FWW. Pt was educated regarding safet y with use of walker, particularly with IADL tasks. She was also educated regarding energy management. She reports she could have some assistance from her granddaughter. Pt lives alone and would benefit form visiting nurse support as she recovers. She also reported an interest in meals on wheels. Anticipate that pt will return home with intermittent assistance from her grandduaghter once medically ready. Do not anticipate further OT needs while hospitalized. Equipment needs at discharge: walker was delivered to her room Anticipated Discharge Disposition: home with assist, home with home health Other Recommendations: ?? ambulate as tolerated with FWW ?? Encourage participation in ADL's by providing set up A on tray table and physical assist only asneeded. Other Recommendations: No other consults recommended at this time Plan: OT: Therapy Frequency: evaluation only Total Evaluation Minutes, Occupational Therapy: 26(initial evaluation) 2017 OT Evaluation Code Rationale: ?? Diagnosis & Pertinent Co-Morbidities affecting Plan of Care: see PMHx ?? Occupational Profile & Client History: Brief Expanded Extensive x ?? Assessment of Occupational Performance: 1-3 performance deficits x 3-5 performance deficits 5 + performance deficits ?? Clinical Decision Making: Low Moderate High x Clinical decision making of low complexity using standardized patient assessment instrument and measurable assessment of functional outcome. Pager: [phone] RENETTA CONTRERAS OT 09/18/2020 Occupational Therapy Rehabilitation Department * Teresita Mccloud RN - 09/18/2020 11:22 AM EST Patient to discharge home today, [facility] walker delivered to patient room. Patient will be getting VNA services from [facility]. Orders posted by and will start care tomorrow. * Skyla Zuniga RN - 09/18/2020 2:48 AM EST OUTCOME EVALUATION NOTE: OUTCOME SUMMARY: Pt A&Ox4. See flowsheet for VS and I/O. Patient denies SOB. See tele report. Call aguilar within reach. Will continue to monitor. PLAN MOVING FORWARD: Discharge planning as appropriate INDIVIDUALIZED FALL PREVENTION INTERVENTIONS: Patient-specific fall risk factors per assessment: [current deficits]: Tele, IV Assistance [level of assistance required for transfers and ambulation]: SBA w/ walker Supervision [direct monitoring required during toileting and ADLs]: Eyes on Surveillance [continuous indirect monitoring]: Tele, hourly rounding, bed alarm on Patient-specific fall prevention interventions for sensory deficits provided, if applicable: [X] N/A CPG GOAL OUTCOME EVALUATION: Ongoing assessment * Rain Winter OT - 09/17/2020 3:16 PM EST Occupational Therapy Note: Order received and chart reviewed. Attempted to see pt this AM for OT evaluation however pt declined participation, reporting RUSSELL and significant fatigue. Pt hypertensive with PT this PM- MD adjustingmedications. OT to f/u as available/appropriate for therapy. Rain Winter OT Inpatient Rehab Pager #[phone] * Chioma Vann RN - 09/17/2020 2:01 PM EST CARE MANAGEMENT DISCHARGE NOTE Chart reviewed, care reviewed with primary team and at interdisciplinary rounds. Patient will be medically ready for discharge to home with home health pending clearance form surgeon. Needs for Transition of Care: Plan for discharge is: Services Anticipated at Discharge: home health care Agency Referrals: Outside Agency Referral(s) Community Agency Referrals: Home Health Agency Home Care / Non-Medical: [facility] PHONE: [phone] FAX: [phone] Transportation: daughter Current DME: Equipment Currently Used at Home: none DME Needed at DC: Equipment Needed After Discharge: FWW [facility] [place], [place] Functional status prior to admission: independent Home Environment: Lives With: alone. Living Arrangements: apartment. . Current Functional Ability: independent with stand by assist Patient is insured through: Primary Insurance: [employer] [place] Payor[place] [employer] [place] / Plan[place] VHP / Product Type: *No Product type* / Secondary Insurance: MEDICARE Prescription Coverage: yes Preferred Pharmacy: [facility] [id number] [facility] [address] [place] [address] [place] [phone] This plan was formulated with input from patient, family and team. All are in agreement with plan. Chioma Vann RN, MSN [facility] - Cardiology Office of Care Management Pager: [phone] Work * Mikala Borden, PT - 09/17/2020 1:53 PM EST Physical Therapy Note Treatment Number PT: 3 Patient profile: Shannan Chaudhary is a 80 y.o. female with who is 2 Days Post- Op TF TAVR. PMH of Severe s/p balloon valvuloplasty (05/2020), CAD s/p PCI to RCA (04/21/20), pAFib not on AC, recent acute cholecystitis (03/2020), anemia readmitted 09/10/20, HTN, HLD, IDDM, obesity, RBBB baseline ?? 24h Events: - RBBB stable from preop on metop - restarted cozaar for HTN, increased to 50 for SBP >170 this AM. 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 ?? Precautions/Special Considerations:??none specified ? Mobility and Positioning Recommendations: ?? Pt. to utilize??FWW with supervision or without walker with close supervision??for ambulation and transfers??with nursing. ?? Please encourage up to chair for meal times as able. ?? Pt encouraged to ambulate frequently with staff, getting into the bathroom for toileting and walking out in the kaufman >/= 3 times daily as able Subjective: I have a headache and I'm just so tired. Objective: Patient seen for physical therapy and demonstrated the following: Pain: sore R groin (miller) Vital Signs: SpO2: 94-96% on RA HR: 68-95 (with activity) BP: 187/54 after walking to bathroom ?? Pt stood from with supervision. Ambulated to bathroom and toileted independently, stayed seated on toilet while she combed and her hair and put it in a pony tail. ?? Sat EOB upon return from bathroom to check BP prior to ambulation in hallway and found to have above BP. Pt felt exhausted, c/o headache and groin rhonda and just wanted to lay down. Did not walker further d/t high bp (orders to keep <140 systolic), PA came into room and aware and was gong to make med adjustments. ?? Pt left supine in bed Assessment: Shannan Chaudhary was seen today for physical therapy treatment session for continuation of POC. Mobility limited by hypertension today , pt also feeling exhausted and c/o headache. Not ready for d/c to home. Will reassess tomorrow. Will need FWW for home. Pt will benefit from ongoing therapeutic interventions to achieve therapy goals. Discharge Recommendations: Anticipated Discharge Disposition: home with home health, home with assist Consult Recommendations: No other consults recommended at this time. Equipment needs: Rolling walker Goals:to be met by 09/19:goals ongoing 1. Pt independent with bed mobility. 2. Pt independent with sit to stand and bed to cc with walker, I'ly. 3. Pt ambulated independently 160 ft on level with FWW or LRD. Plan: Therapy Frequency: 1-3 more visits as outlined in initial evaluation. Patient agrees with plan as stated. Time IN / OUT: 8806-5467 Total Evaluation Minutes, Physical Therapy: 25(te-fx2) MIKALA BORDEN PT Pager: [phone] Physical Therapy Inpatient Rehabilitation Department * Ashley Santacruz RN - 09/17/2020 1:06 PM EST OUTCOME EVALUATION NOTE: OUTCOME SUMMARY: Lonnie femoral sites bruised pain with palpitation , ambulated with assist, tylenol given with good effect for headache, PLAN MOVING FORWARD: Monitor BP, pain, DC planning INDIVIDUALIZED FALL PREVENTION INTERVENTIONS: Patient-specific fall risk factors per assessment: [current deficits]: Post op, generalized weakness Assistance [level of assistance required for transfers and ambulation]: SBA Supervision [direct monitoring required during toileting and ADLs]: SBA Surveillance [continuous indirect monitoring]: Hourly rounding, call aguilar in reach at all times, VS, Labs Patient-specific fall prevention interventions for sensory deficits provided, if applicable: yes CPG GOAL OUTCOME EVALUATION: * Devyn Crum PA - 09/17/2020 11:32 AM EST Cardiac Surgery Progress Note Shannan Chaudhary is a 80 y.o. female with who is 2 Days Post-Op TF TAVR. PMH of Severe s/p balloon valvuloplasty (05/2020), CAD s/p PCI to RCA (04/21/20), pAFib not on AC, recent acute cholecystitis (03/2020), anemia readmitted 09/10/20, HTN, HLD, IDDM, obesity, RBBB baseline 24h Events: - RBBB stable from preop on metop - restarted cozaar for HTN, increased to 50 for SBP >170 this AM. - Hgb 8.7 S: Feels wiped out, didn't sleep well, feels weak. Groin tenderness about the same. O: Temp: [36.3 ??C (97.3 ??F)-37.4 ??C (99.3 ??F)] Heart Rate: -- Resp: [16-18] BP: (117-157)/(40-90) SpO2: [94 %-98 %] Heart Rate from SpO2: [64 bpm-88 bpm] 09/16 0701 - 09/17 0700 In: 440 [P.O.:440] Out: 1350 [Urine:1350] Admit weight: 80.74 kg Current weight: Weight: 79 kg (174 lb 2.6 oz) Physical Exam: General: alert laying in bed Neuro: A&Ox3 nfd diaz Lungs: LS clear dim bibasilar Heart: rrr, s1s2, no mrg Abdomen: soft nt nd +bs Ext: wwp trace edema Incisions: cdi Tubes/Lines/Drains: PIV Assessment/Plan: 80 y.o. female 2 Days Post-Op TF TAVR. Iron deficiency anemia, ? Blood loss anemiaon admission with negative GI workup. ekg with RBBB(baseline), stable on beta kan Losartan 50, PRN hydralazine plavix only for ac plan amio 200 daily PO iron BID, bowel regimen, AM hemogram Home when ready with VNA Discussed with attending surgeon on rounds this morning. TR Badillo 09/17/2020 Between the hours of 1800 - 0600 and on the weekends please page [phone]. Jordan Roberts - 09/17/2020 11:22 AM EST Nutrition Services Note - Low Nutrition Acuity Shannan Chaudhary is a 80 y.o. female Reason for intervention: diet advancement Nutrition Plan: Continue current diet. Added high protein snacks. Monitor weight. Encourage good oral intake. Patient reported a decreased appetite. Encouraged adding snacks in between meals to promote PO intake, patient agreeable. Patient stated not feeling well today nutrition will continue to monitor and follow up with patient. Weight loss of 8% within 5 month noted, per patient it was unintentional due to not been feeling well for the last couple month. Will discuss case with Clinical Dietitian. Nutrition will continue to monitor and follow up with patient to further assess level of PO intake and appetite. Active Orders Diet Carb Control diet 60/60/75 CHO counting level 2 Frequency: Effective Now Number of Occurrences: Until Specified Admit Weight: 80.74 kg Estimated body mass index is 31.85 kg/m?? as calculated from the following: Height as of this encounter: 157.5 cm (5' 2). Weight as of this encounter: 79 kg (174 lb 2.6 oz). Wt Readings from Last 5 Encounters: 09/17/20 79 kg (174 lb 2.6 oz) 09/10/20 81.2 kg (179 lb) 09/10/20 81.2 kg (179 lb) 06/25/20 79.8 kg (175 lb 14.8 oz) 06/18/20 80.7 kg (178 lb) Weight loss: not clinically significant - 8% within past 5 month. Appetite: Fair (25%-50%) Food allergies:no known food allergies Chewing/Swallowing difficulty: none Nausea/Vomiting: no nausea and no vomiting Last Bowel Movement: 09/16/20 Patient education / questions: all nutrition related questions answered at this time Nutrition services to follow weekly through hospital course unless consulted in the interim. Jordan Davenport Pager: [phone] * Mikala Borden, PT - 09/16/2020 11:11 AM EST Physical Therapy Note Treatment Number PT: 2 Patient profile: Shannan Chaudhary is a 80 y.o. female with who is 1 Day Post-Op TF TAVR. PMH of Severe s/p balloon valvuloplasty (05/2020), CAD s/p PCI to RCA (04/21/20), pAFib not on AC, recent acute cholecystitis (03/2020), anemia readmitted 1/15/21, HTN, HLD, IDDM, obesity, RBBB baseline ?? 24h Events: [place] to [facility] post case for levo req. Quickly weaned off Pressure held to right groin due to bleeding ?? 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 ?? Precautions/Special Considerations: none specified ? Mobility and Positioning Recommendations: ?? Pt. to utilize FWW with supervision or without walker with close supervision for ambulation and transfers with nursing. ?? Please encourage up to chair for meal times as able. ?? Pt encouraged to ambulate frequently with staff, getting into the bathroom for toileting and walking out in the kaufman >/= 3 times daily as able Subjective: This groin just really miller Objective: Patient seen for physical therapy and demonstrated the following: Pain: R groin discomfort, burning pain, feels better in sitting when it is compressed, worse with standing stretch (there is a skin tear from manual hold post sheath removal) Vital Signs: SpO2: 99% HR: 67 BP: 131/67 ?? Exercises: completed simple EOB warm-up exs prior to mobilizing (AP, LAQ, overhead reach) ?? Sit to stand with supervision ?? Ambulated about 120 ft on level (slight dizziness), used walker to Support sore R groin discomfort ?? Pt used commode when back in room with supervision, then back to bed with supervision (no chair available, but nurse team is looking for one) ?? Pt left supine in bed Education: reviewed importance of frequent mobility, importance of using FWW for support for now while groin uncomfortable Assessment: Shannan Chaudhary was seen today for physical therapy treatment session for continuation of POC. Pt seen post TAVR , presents with R groin pain (s/p skin tear from manual hold), impaired functional mobility, impaired endurance. Should progress well as groin pain dissipates and pt mobilizes more. Expect she will be able to return home, will likely not need services upon d/c. Pt will benefit from ongoing therapeutic interventions to achieve therapy goals. Discharge Recommendations: Anticipated Discharge Disposition: home with assist Consult Recommendations: No other consults recommended at this time. Equipment needs: Rolling walker Goals: 1. Pt independent with bed mobility. 2. Pt independent with sit to stand and bed to cc with walker, I'ly. 3. Pt ambulated independently 160 ft on level with FWW or LRD. Plan: Therapy Frequency: 1-3 more visits as outlined in initial evaluation. Patient agrees with plan as stated. Time IN / OUT: [id number] Total Evaluation Minutes, Physical Therapy: 24(te-f x2) MIKALA BORDEN PT Pager: [phone] Physical Therapy Inpatient Rehabilitation Department * Amlaz Carias, TIE BINDER - 09/16/2020 8:48 AM EST Cardiac Surgery Progress Note Shannan Chaudhary is a 80 y.o. female with who is 1 Day Post-Op TF TAVR. PMH of Severe s/p balloon valvuloplasty (05/2020), CAD s/p PCI to RCA (04/21/20), pAFib not on AC, recent acute cholecystitis (03/2020), anemia readmitted 09/10/20, HTN, HLD, IDDM, obesity, RBBB baseline 24h Events: [place] to [facility] post case for levo req. Quickly weaned off Pressure held to right groin due to bleeding S: pt feels ok, has some discomfort in her right groin otherwise no pain. She is hungry. O: Temp: [36.4 ??C (97.5 ??F)-37.5 ??C (99.5 ??F)] Heart Rate: [57-74] Resp: [12-22] BP: (86-143)/(39-70) SpO2: [94 %-100 %] Heart Rate from SpO2: [57 bpm-74 bpm] 09/15 0701 - 09/16 0700 In: 1175 [P.O.:125; I.V.:700] Out: 650 [Urine:650] Admit weight: 80.74 kg Current weight: Weight: 79 kg (174 lb 2.6 oz) Physical Exam: General: alert laying in bed Neuro: A&Ox3 nfd diaz Lungs: LS clear dim bibasilar Heart: rrr, s1s2, no mrg Abdomen: soft nt nd +bs Ext: wwp trace edema Incisions: cdi Tubes/Lines/Drains: PIV Assessment/Plan: 80 y.o. female 1 Day Post-Op TF TAVR ekg with RBBB, baseline Will continue q6hr metoprolol for now and monitor, repeat ekg tomorrow am Losartan cont plavix only for ac plan amio 200 daily tx to floor PT eval pt lives alone Discussed with attending surgeon on rounds this morning. ALMAZ CARIAS APRN 09/16/2020 Between the hours of 1800 - 0600 and on the weekends please page [phone]. * Esau Rahman MD - 09/16/2020 8:11 AM EST Images from the original note were not included. Structural heart disease progress note I met with the patient this morning. She has mild nausea and throat fullness. No medications given yet. She is hungry. No SOB at rest. Burning at right femoral site where there is a skin tear from manual hold. Yesterday she had low blood pressure in response to hydralazine 20 mg IV and protamine at close of case. 1 L NS and 1 unit prbc. Blood was not given in response to any concern for acute bleeding, butdue to known anemia and acute low blood pressure. Examination: 09/01 early peaking systolic murmur, no diastolic murmur. Irregular rhythm. Right groin site: Mild ecchymosis. No hematoma. Tender to touch. 2+ pulse and no bruit. Left groin site: No tenderness or ecchymosis or hematoma. 2+ pulse QRS 130 RBBB NSR Recommendations: 1. Low dose BB is already added given home regimen; hold at low dose or consider alternate antihypertensives. Continue to follow QRS. 2. Plavix alone, consider anticoagulation in 2-4 weeks for pAF, and consideration of watchman to follow. 3. Ambulation 4. Skin care at groin skin tear 5. Threshold for US evaluation of femoral site will be if there is worsening groin pain with ambulation, page interventional team to assess Current Facility-Administered Medications Ordered in Epic Medication Dose Route Frequency Provider Last Rate Last Dose ??? mupirocin (BACTROBAN) 2 % ointment Topical (Top) BID Esau Rahman MD ??? sodium chloride 0.9 % (flush) flush 5 mL 5 mL Intravenous BID Esau Rahman MD 5 mL at 09/15/20 2017 ??? sodium chloride 0.9 % (flush) flush 5-20 mL 5-20 mL Intravenous Q1 Min PRN Esau Rahman MD ??? ceFAZolin (Ancef) 1 g in dextrose 5% 50 mL infusion PRN Eamon Borrero MD 2 g at 09/15/20 1325 ??? vancomycin (Vancocin) injection PREamon Cantu MD 1 g at 09/15/20 1325 ??? propofoL (Diprivan) infusion Intravenous Continuous PREamon Cantu MD 14 mL/hr at09/15/20 1359 30 mcg/kg/min at 09/15/20 1359 ??? lactated ringers infusion Continuous PREamon Cantu MD ??? sodium chloride 0.9% infusion Continuous PRN Eamon Borrero MD ??? heparin (porcine) (1,000 units/mL) injection Intravenous PREamon Cantu MD 5,500 Units at 09/15/20 1355 ??? hydrALAZINE (Apresoline) (20 mg/mL) injection PREamon Cantu MD 20 mg at 416 ??? protamine (10 mg/mL) injection Intravenous PREamon Cantu MD 40 mg at 09/15/20 1419 ??? NORepinephrine (Levophed) (16 mcg/mL) in sodium chloride 0.9% 250 mL infusion Intravenous Continuous PREamon Cantu MD 7.5 mL/hr at 09/15/20 1452 2 mcg/min at 09/15/20 1452 ??? NORepinephrine (Levophed) injection Intravenous PREamon Cantu MD 8 mcg at 09/15/20 1430 ??? fentaNYL (pf) (50 mcg/mL) multi-dose injection Intravenous PREamon Cantu MD 25 mcg at 09/15/20 1443 ??? losartan (Cozaar) tablet 25 mg 25 mg Oral Daily Oscar Schilling DO 25 mg at 09/15/20 0852 ??? AMIOdarone (Cordarone; Pacerone) tablet 200 mg 200 mg Oral Daily Oscar Schilling DO 200mg at 09/15/20 0852 ??? pantoprazole EC (Protonix) tablet 40 mg 40 mg Oral BID Oscar Schilling DO 40 mg at 09/15/20 2018 ??? acetaminophen (Tylenol) tablet 650 mg 650 mg Oral Q4H PRN Иван Dodson MD 650 mg at 09/13/20 2335 ??? ferrous gluconate (Fergon) tablet 324 mg 324 mg Oral BID Abigail Todd MD 324 mg at 09/15/20 2018 ??? metoprolol tartrate (Lopressor) tablet 25 mg 25 mg Oral Q6H BASIL Abigail Todd MD 25 mg at 09/16/20 0656 ??? hydrALAZINE (Apresoline) (20 mg/mL) injection 5 mg 5 mg Intravenous Q2H PRN Carol Reyna MD 5 mg at 09/11/20 0409 ??? bisacodyl EC (Dulcolax) tablet 10 mg 10 mg Oral Daily PRN Carol Reyna MD ??? clopidogreL (Plavix) tablet 75 mg 75 mg Oral Daily Carol Reyna MD 75 mg at 09/15/20 0852 ??? polyethylene glycoL (Miralax) packet 17 g 17 g Oral Daily Carol Reyna MD 17 g at 09/12/20 0900 ??? rosuvastatin (Crestor) tablet 20 mg 20 mg Oral QPM Carol Reyna MD 20 mg at 09/15/20 1844 ??? potassium chloride ER (K-Dur/Klor-Con) tablet 20 mEq 20 mEq Oral Q4H PRN Carol Reyna MD 20 mEq at 09/12/20 1800 Or ??? potassium chloride ER (K-Dur/Klor-Con) tablet 40 mEq 40 mEq Oral Q4H PRN Carol Reyna MD 40 mEq at 09/11/20 0906 ??? glucose (GLUTOSE) 40% oral geL 15-30 g Buccal Q30 Min PRN Carol Reyna MD Or ??? dextrose 10% infusion 250 mL Intravenous Q30 Min PRN aCrol Reyna MD Or ??? glucagon (human recombinant) injection SolR 1 mg 1 mg Intramuscular Q30 Min PRN Carol Reyna MD ??? insulin lispro (HumaLOG) (100 unit/mL) subcutaneous injection vial 1-6 Units 1-6 Units Subcutaneous Q4H [facility] Carol Reyna MD 1 Units at 09/15/20 2317 ??? insulin glargine (Lantus) (100 unit/mL) subcutaneous injection vial 10 Units 10 Units Subcutaneous Daily Carol Reyna MD 10 Units at 09/15/20 0857 ??? lidocaine (Lidoderm) 5 % topical patch 3 patch 3 patch Transdermal Daily Carol Reyna MD 3 patch at 09/14/20 205 And ??? lidocaine (Lidoderm) topical patch REMOVAL 3 patch Transdermal Q24H Carol Reyna MD No current [facility]-ordered outpatient medications on file. Lab Results Component Value Date WBC 17.0 (H) 09/16/2020 HGB 9.9 (L) 09/16/2020 HCT 31.6 (L) 09/16/2020 MCV 74.2 (L) 09/16/2020 PLATELET 247 09/16/2020 Lab Results Component Value Date NA 137 09/16/2020 K 4.0 09/16/2020 CL 107 09/16/2020 CO2 22 09/16/2020 BUN 18 09/16/2020 CREATININE 0.99 09/16/2020 GLUCOSE 261 (H) 09/10/2020 GLUCFASTING 136 (H) 09/16/2020 CALCIUM 8.3 (L) 09/16/2020 ESTGFR 54 (L) 09/16/2020 Wt Readings from Last 3 Encounters: 09/16/20 79 kg (174 lb 2.6 oz) 09/10/20 81.2 kg (179 lb) 09/10/20 81.2 kg (179 lb) Temp Readings from Last 3 Encounters: 09/16/20 36.6 ??C (97.9 ??F) (Oral) 09/10/20 36.4 ??C (97.5 ??F) 07/15/20 37.1 ??C (98.8 ??F) BP Readings from Last 3 Encounters: 09/16/20 128/49 09/10/20 123/59 07/15/20 160/57 35 min spent in this visit and with team. * Luci Boyle RN - 09/16/2020 7:43 AM EST This RN agrees with Marcelo ARITA shift note. Plan to move to floor today. * Jos Santos RN - 09/15/2020 7:39 PM EST Patient received in unit S/P TAVR in the syrup machine laborer. While sheath being pulled patient became profoundly hypotensive requiring up to 15 mcgs of Levophed. Intubation was being considered but patient improved with blood pressure improvement. On arrival in [facility] patient was on NRB and on Levo at 2. Patient also received 1 unit of blood and 1 liter of NSaline in syrup machine laborer. Shortly after arrival Right groin perclose started to bleed. Pressure was held. geochemical laboratory technician PA over to inject lido with epi into rightgroin. He then pulled Left groin arterial sheath. At 6:30 Left groin venous sheath pulled by RN. Patient does only have one peripheral IV. Unable to obtain 2nd peripheral line despite attempts by Dr. Patel and IV team. Patient stable. Report given to Felton RN. * Dago Merchant PA - 09/15/2020 5:06 PM EST [facility] Interventional Cardiology Structural Heart Program Shannan is an 80 y.o. female with a hx significant for Severe , ASCVD (DESx2 Ostial RCA 03/2020),pAF, DM2, HTN, HLD s/p TAVR with 23mm right transfemoral Jemma 3 under moderate sedation. Valve deployment without complication. At the end of the procedure, following administration of hydralazine and protamine, profound hypotension noted. Pericardial effusion, aortic annular rupture, coronary artery obstruction access site bleed / ileofemoral extravasation all ruled out with echo (no effusion, no wall motion abnormalities)and fluoroscopic angiography (no extravasation of aorta). ?? Patient brought to the ICU in the setting of intraoperative hypotension, now off pressors. Initially with right groin hematoma, resolving with pressure. I held manual pressure constant for 40 minutes or more on the right groin. I injected 8mL of 1% lidocaine with epinephrine with 25gauge needle superficially after Chloraprep skin prep for vasoconstriction with excellent results. No hematoma, no bleeding. On the left femoral access site, I removed the 6 fr arterial sheath and held constant manual pressure for 40 minutes with no bleeding, hematoma or other neurovascular compromise. I dressed the access sites bilaterally with Syvek patch and tegaderm. Patient comfortable resting in bed with good distal pulses with no neurological deficit. Dago Merchant PA-C Interventional Cardiology [facility] Pager [phone] * Natalia Kamara MD - 09/15/2020 4:39 PM EST Critical Care Medicine Staff Progress Note 80 y.o. female with a hx significant for Severe , ASCVD (DESx2 Ostial RCA 03/2020), pAF, DM2, HTN, HLD s/p TAVR Patient brought to the ICU in the setting of intraoperative hypotension, now off pressors. Initially with right groin hematoma, resolving with pressure. Review of Systems - Limited history obtained from the patient General ROS: positive for - feeling sleepy Respiratory ROS: no cough, or wheezing Cardiovascular ROS: no chest pain Musculoskeletal ROS: negative for pain Neurological ROS: no TIA or stroke symptoms Dermatological ROS: negative for skin breakdown or rashes PE Temp: [36.4 ??C (97.5 ??F)-37 ??C (98.6 ??F)] Heart Rate: [55-67] Resp: [16-17] BP: (121-158)/(39-57) SpO2: [95 %-100 %] Heart Rate from SpO2: [57 bpm-65 bpm] Vent settings: 5L NC Gen: elderly female, laying in bed, comfortable CVS: RRR Lungs: CTAB Abd: soft, NT, ND Ext: Slight ooze from right groin site, well perfused Skin: no rashes Neuro: AA&Ox3, moving all extremities Labs Last 3 wbc, hgb, hct plt Recent Labs 09/15/2044409/14/2035009/13/20 2250 09/13/20 0539 WBC 6.9 6.5 -- -- 6.1 HGB 8.5* 8.4* 8.8* < > 8.5* HCT 28.2* 28.7* 30.0* < > 28.2* PLATELET 316 325 -- -- 315 < > = values in this interval not displayed. Last 3 Lytes Recent Labs 09/15/2044409/14/2035009/13/20 1125 09/13/20 0539 NA 139 140 -- 141 K 4.2 4.4 4.2 4.3 CL 106 107 -- 108* CO2 24 24 -- 23 BUN 16 13 -- 12 CREATININE 0.99 1.11 -- 0.98 Last 3 LFTs Recent Labs 09/14/2035009/13/20 0539 09/12/20 0143 AST 24 41* 23 ALT 28 30 21 ALKPHOS 111* 110* 120* BILITOT 1.0 1.9* 2.7* BILIDIR 0.3 0.4* 0.3 Last Ca, Mg, Phos Recent Labs 09/15/20444 CALCIUM 9.0 MAGNESIUM 0.92 Last 3 Coags Recent Labs 09/15/20 0445 09/14/20 03509/13/20 0539 PT 11.2 12.2 12.8* INR 1.0 1.1 1.1 PTT 26 28 29 T/L/D PIV Femoral regis ASSESSMENT, MANAGEMENT, and DECISION MAKIN y.o. female with a hx significant for Severe , ASCVD (DESx2 Ostial RCA 03/2020), pAF, DM2, HTN, HLD s/p TAVR - monitor Right groin - Levophed as needed to keep map >65 - flat for 4 hours (post TAVR precautions) - anticoagulation tomorrow per the interventional team Ppx: - scd's - HOB >30 - mouth care - PPI Code status: FULL CODE IS PATIENT CRITICALLY ILL ? Is there a high potential of sudden, clinically significant, or life threatening deterioration? No Is there a need for direct personal assessment and management to treat/prevent multiple vital organfailure/deterioration? No If this patient is not critically ill, the reason for continued hospitalization is postop TAVR, hemodynamic instability, monitoring for bleeding, pain control, oxygen requirement * Roney Tiwari DT - 09/15/2020 7:21 AM EST Nutrition NPO Note Shannan Chaudhary is a 80 y.o. female Patient is has been on NPO/clear liquid diet only for 5 days (with a few meals in between), increasing risk for malnutrition. If clinically unable to advance oral diet consider consult to Nutrition Services to evaluate for potential nutrition support. Visualized patient for overt cachectic appearance: yes - none present Active Orders Diet NPO diet (Give Meds) Frequency: Effective Midnight Number of Occurrences: Until Specified Admit Weight: 80.74 kg Estimated body mass index is 31.33 kg/m?? as calculated from the following: Height as of this encounter: 157.5 cm (5' 2). Weight as of this encounter: 77.7 kg (171 lb 4.8 oz). Wt Readings from Last 5 Encounters: 09/15/20 77.7 kg (171 lb 4.8 oz) 09/10/20 81.2 kg (179 lb) 09/10/20 81.2 kg (179 lb) 06/25/20 79.8 kg (175 lb 14.8 oz) 06/18/20 80.7 kg (178 lb) Weight loss: not clinically significant, reported wt of 179 lbs vs. SS weights SULEMAN Shaver Pager: [phone] * Alvin Serna MD - 09/15/2020 6:36 AM EST Cardiology Progress Note Date: 09/15/20 Patient Information Name: Shannan Chaudhary : 1940 PCP: Reshma Baig MD PCP Admit Date: 09/10/2020 ID: Shannan Chaudhary is a 80 y.o. female presenting for HDS anaemia (Hb 5.4) unclear aetiology, onbackground of Severe (Low Output Low Gradient, s/p BAV for now recovered david), 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 Patient Active Problem List Diagnosis ??? ','Anemia, iron deficiency ??? S/P balloon aortic valvuloplasty 06/24/2020 ??? Esophagitis, erosive ??? Aortic stenosis, severe Overview Note: Added automatically from request for surgery [id number] ??? Obesity (BMI 30.0-34.9) ??? Aortic valve stenosis Overview Note: 04/20/20 TTE SUMMARY: ??1. Mild concentric left ventricular hypertrophy is observed. [...] by low stroke volume index (23 ml/m2). 06/24/2020 Successful BAV: Conclusions: * Severe aortic stenosis * Valvuloplasty was performed * Successful balloon aortic valvuloplasty. Stenotic Valve Data After Valvuloplasty: Aortic Valve Peak Gradient - 19 Mean Gradient - 20 TTE 06/25/2020: SUMMARY: ?? 1. Limited for LV function and aortic valve structural and function. 2. Aortic valve is trileaflet and significantly calcified. There is severe aortic stenosis, with an CORINE by planimetry of 0.92 cm2 (mean gradient 18 mmHg, SVI 29 cc/m2). Trace aortic regurgitation. 3. Left ventricle is normal in size and function, with an EF by biplane of 72% and no wall motion abnormalities. 4. Right ventricle is normal in size and function. PASP of 35 mmHg plus estimated RA pressure. 5. The mitral valve leaflets and its apparatus are calcified. Mean gradient across the valve is 7 mmHg at a HR in the 60s. 6. No pericardial effusion. ??? Aortic stenosis - moderate Overview Note: [...] insulin ??? Hypertension ??? Hyperlipidemia ??? Arthritis Subjective/24h Events - pt is feeling well. Denies additional CP, dyspnea, nausea, diaphoresis, lightheadedness, dizziness. -EGD/[facility] on 09/12 negative -TAVR scheduled for today 09/15 Objective Tele: NSR Scheduled Meds: ??? aspirin 81 mg Oral Daily ??? mupirocin Topical (Top) BID ??? sodium chloride 0.9 % (flush) 5 mL Intravenous BID ??? losartan 25 mg Oral Daily ??? AMIOdarone 200 mg Oral Daily ??? pantoprazole EC 40 mg Oral BID ??? ferrous gluconate 324 mg Oral BID ??? metoprolol tartrate 25 mg Oral Q6H BASIL ??? clopidogreL 75 mg Oral Daily ??? polyethylene glycoL 17 g Oral Daily ??? rosuvastatin 20 mg Oral QPM ??? insulin lispro 1-6 Units Subcutaneous Q4H BASIL ??? insulin glargine 10 Units Subcutaneous Daily ??? lidocaine 3 patch Transdermal Daily And ??? lidocaine 3 patch Transdermal Q24H Continuous Infusions: PRN Meds:.sodium chloride 0.9 % (flush), lidocaine, acetaminophen, hydrALAZINE, bisacodyl EC, potassium chloride ER OR potassium chloride ER, glucose 40% oral geL OR dextrose 10% OR glucagon (human recombinant) Last value Range last 24 hrs Temperature Temp: 37 ??C (98.6 ??F) Temp: [36.7 ??C (98.1 ??F)-37 ??C (98.6 ??F)] Heart Rate Heart Rate: 55 Heart Rate: [55-62] Blood Pressure BP: 158/57 BP: (122-158)/(38-57) Respiratory Rate Resp: 16 Resp: [16-22] SpO2 SpO2: 100 % SpO2: [95 %-100 %] Lines: PIVx2 Intake/Output Summary (Last 24 hours) at 09/15/2020 0852 Last data filed at 09/15/2020 0400 Gross per 24 hour Intake 1120 ml Output 2650 ml Net -1530 ml Patient Vitals for the past 168 hrs: Weight 09/15/20 0500 77.7 kg (171 lb 4.8 oz) 09/14/20 0504 78.4 kg (172 lb 13.5 oz) 09/13/20 0536 77.2 kg (170 lb 3.1 oz) 09/12/20 0656 77.1 kg (169 lb 15.6 oz) 09/10/20 1638 80.7 kg (178 lb) Physical Exam - General: Sleepy, obvious pallor to skin. Able to answer questions. - Lung: CTAB - CV: irregular, S1, S2, systolic crescendo murmur. - Abd: soft, NT, ND - Extremities: warm, well-perfused, radial/DP/PT pulses easily palpable Recent Labs 09/15/20 0445 09/14/20 03509/13/20 2250 09/13/20 0539 WBC 6.9 6.5 -- -- 6.1 HGB 8.5* 8.4* 8.8* < > 8.5* HCT 28.2* 28.7* 30.0* < > 28.2* PLATELET 316 325 -- -- 315 < > = values in this interval not displayed. Recent Labs 09/15/20 0445 09/14/20 03509/13/20 1125 09/13/20 0539 NA 139 140 -- 141 K 4.2 4.4 4.2 4.3 CL 106 107 -- 108* CO2 24 24 -- 23 BUN 16 13 -- 12 CREATININE 0.99 1.11 -- 0.98 Recent Labs 09/14/20 03509/13/20 0539 09/12/20 0143 AST 24 41* 23 ALT 28 30 21 ALKPHOS 111* 110* 120* BILITOT 1.0 1.9* 2.7* BILIDIR 0.3 0.4* 0.3 Recent Labs 09/15/20 0445 09/14/20 0351 09/13/20 0539 CALCIUM 9.0 8.9 8.8 MAGNESIUM 0.92 0.96 1.04 Recent Labs 09/15/20 0445 09/14/20 0351 09/13/20 0539 INR 1.0 1.1 1.1 PT 11.2 12.2 12.8* PTT 26 28 29 No results for input(s): CK, TROPONINT in the last 168 hours. Recent Labs 09/15/20 0801 09/15/20 0427 09/15/20 0007 09/14/20 2027 09/14/20 1713 09/14/20 1231 POCGLU 137 180 189 218* 177 168 Imaging: TTE- 09/10 ?? 1. The left ventricular chamber size is normal. Moderate concentric left ventricular hypertrophy is observed. There is normal global left ventricular systolic function with an EF of 65% and no wall motion abnormalities. 2. The right ventricle is normal in size. Right ventricular global systolic function is normal. The estimated pulmonary artery systolic pressure is elevated at 43 mmHg. 3. There is severe aortic valve stenosis. DOI .3, SVI 38.7, CORINE 0.8 cm2. MG 28 mmHg. 4. There is moderate mitral stenosis present. The mean gradient across the mitral valve is 8 mmHg at 83 bpm. The PHT is 80-90 ms. 5. The pericardium appears normal and there is no evidence of a pericardial effusion. Assessment and Plan: Shannan Chaudhary is a 80 y.o. female presenting for smptomatic anaemia of unclear etiology confounded by critical . HDS, benign abdominal exam. Will be worked up for TAVR/SAVR given critical that is likely contributing to her presenting symptoms. Will continue the amiodarone for AF. S/p CT for TAVR staging on 09/14 and likely TAVR today 09/15. Discussion regarding AC post TAVR is ongoing. #Severe (Low Output Low Gradient, s/p BAV for now recovered david) - Strict I&O, Daily wts - Target SBP>140, <180, PRN hydral to maintain - TAVR CT-ordered - f/u consult cardiac surgery ?? #CAD (DESx2 Ostial RCA 03/2020) - GDMT: Rosuvastatin 20mg - ASA 81mg (hold for bleeding) -c/w Plavix 75 QD - Metop 25mg q6hrs - Losartan 25mg daily, uptitrate as tolerated #pAF - EKG PRN - Telemetry - Mg >1; K>4 - Home Med: Amio 200mg daily, metop as above - hold AC for bleeding ?? #Hx of GI bleed #concern for blood loss anemia #GI Malignancy w/u - IV PPI 40 BID - BM Regimen: Miralax, Bisacodyl supp - GI consult: EGD/ colo negative ?? #IDDM2 (A1c 8.5 03/2020) - Target BG 120-180 - A1c 8.3 - Lantus 10U - Moderate SSI - Home Med Victoza (hold), Dulaglutide (hold), Glargine & Lantus ?#Anemia, concern for blood loss anemia #RENETTA - Coag qd, maintain active T&S - c/w iron 324 BID - s/p 1x IV 300mg iron 09/13-will hold off re dosing today. - f/u Peripheral smear (ordered) - Transfuse Hb<8 - No anticoagulation given acute anemia -GI Consult as above ?? Diet: NPO diet (Give Meds) Prophylaxis: none Disposition: Floor Code Status: Attempt Cardiopulmonary Resuscitation - Inpatient Alvin Serna MD, PGY-1 09/15/20 8:52 AM Cardiology Team S2 Associated attestation - Abiodun Chun MD - 09/15/2020 11:09 AM EST Cardiology Attending Addendum Active Hospital Problems Diagnosis Anemia, iron deficiency S/P balloon aortic valvuloplasty 06/24/2020 Aortic stenosis, severe 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 I have interviewed and examined the patient, reviewed the available data, and have discussed my findings, assessment and plan with the patient and the team on rounds today. I agree with Dr. Serna'snote as below which reflects our discussion. * Esau Rahman MD - 09/14/2020 4:54 PM EST Structural heart progress note I reviewed the CT scan (radiology images). Patient is a candidate for 23 mm TF TAVR. Formal review on 3Mensio needed. Hgb stable after 2 units. Difficult decision making regarding timing of TAVR. Patient reports she is still SOB and fatigued, albeit improved. In this context of severe, symptomatic (low output low gradient), and no lesionsseen on EGD/colo, discussed with inpatient team, patient, and her grandson, and there was consensusto move forward. Iron stores being repleted, and we have moved to single antiplatelet therapy. Decision making regarding stroke prevention with anticoagulation is ongoing. 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 May also be related in part due to low iron stores after GI surgery (ferritin 12). Awaiting input from cardiac surgery partners to complete heart team assessment. * Alvin Serna MD - 09/14/2020 6:47 AM EST Cardiology Progress Note Date: 09/14/20 Patient Information Name: Shannan Chaudhary : 1940 PCP: Reshma Baig MD PCP Admit Date: 09/10/2020 ID: Shannan Chaudhary is a 80 y.o. female presenting for HDS anaemia (Hb 5.4) unclear aetiology, onbackground of Severe (Low Output Low Gradient, s/p BAV for now recovered david), 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 Patient Active Problem List Diagnosis ??? ','Anemia, iron deficiency ??? S/P balloon aortic valvuloplasty 06/24/2020 ??? Esophagitis, erosive ??? Obesity (BMI 30.0-34.9) ??? Aortic valve stenosis Overview Note: 04/20/20 TTE SUMMARY: ??1. Mild concentric left ventricular hypertrophy is observed. [...] by low stroke volume index (23 ml/m2). 06/24/2020 Successful BAV: Conclusions: * Severe aortic stenosis * Valvuloplasty was performed * Successful balloon aortic valvuloplasty. Stenotic Valve Data After Valvuloplasty: Aortic Valve Peak Gradient - 19 Mean Gradient - 20 TTE 06/25/2020: SUMMARY: ?? 1. Limited for LV function and aortic valve structural and function. 2. Aortic valve is trileaflet and significantly calcified. There is severe aortic stenosis, with an CORINE by planimetry of 0.92 cm2 (mean gradient 18 mmHg, SVI 29 cc/m2). Trace aortic regurgitation. 3. Left ventricle is normal in size and function, with an EF by biplane of 72% and no wall motion abnormalities. 4. Right ventricle is normal in size and function. PASP of 35 mmHg plus estimated RA pressure. 5. The mitral valve leaflets and its apparatus are calcified. Mean gradient across the valve is 7 mmHg at a HR in the 60s. 6. No pericardial effusion. ??? Aortic stenosis - moderate Overview Note: [...] insulin ??? Hypertension ??? Hyperlipidemia ??? Arthritis Subjective/24h Events - pt is feeling well. Denies additional CP, dyspnea, nausea, diaphoresis, lightheadedness, dizziness. -EGD/[facility] on 09/12 negative -CTA for TAVR scheduled for today -received IV 300mg Iron 09/13 Objective Tele: NSR Scheduled Meds: ??? losartan 25 mg Oral Daily ??? AMIOdarone 200 mg Oral Daily ??? pantoprazole EC 40 mg Oral BID ??? ferrous gluconate 324 mg Oral BID ??? metoprolol tartrate 25 mg Oral Q6H BASIL ??? clopidogreL 75 mg Oral Daily ??? polyethylene glycoL 17 g Oral Daily ??? rosuvastatin 20 mg Oral QPM ??? insulin lispro 1-6 Units Subcutaneous Q4H BASIL ??? insulin glargine 10 Units Subcutaneous Daily ??? lidocaine 3 patch Transdermal Daily And ??? lidocaine 3 patch Transdermal Q24H Continuous Infusions: PRN Meds:.iohexoL, acetaminophen, hydrALAZINE, bisacodyl EC, potassium chloride ER OR potassiumchloride ER, glucose 40% oral geL OR dextrose 10% OR glucagon (human recombinant) Last value Range last 24 hrs Temperature Temp: 37.3 ??C (99.1 ??F) Temp: [36.5 ??C (97.7 ??F)-37.3 ??C (99.1 ??F)] Heart Rate Heart Rate: 62 Heart Rate: [56-67] Blood Pressure BP: 138/43 BP: (105-160)/(43-87) Respiratory Rate Resp: 16 Resp: [16-18] SpO2 SpO2: 96 % SpO2: [95 %-99 %] Lines: PIVx2 Intake/Output Summary (Last 24 hours) at 09/14/2020 0950 Last data filed at 09/14/2020 0800 Gross per 24 hour Intake 971 ml Output 1400 ml Net -429 ml Patient Vitals for the past 168 hrs: Weight 09/14/20 0504 78.4 kg (172 lb 13.5 oz) 09/13/20 0536 77.2 kg (170 lb 3.1 oz) 09/12/20 0656 77.1 kg (169 lb 15.6 oz) 09/10/20 1638 80.7 kg (178 lb) Physical Exam - General: Sleepy, obvious pallor to skin. Able to answer questions. - Lung: CTAB - CV: irregular, S1, S2, systolic crescendo murmur. - Abd: soft, NT, ND - Extremities: warm, well-perfused, radial/DP/PT pulses easily palpable Recent Labs 09/14/20 0351 09/13/20 2250 09/13/20 1125 09/13/20 0539 09/12/20 0143 WBC 6.5 -- -- 6.1 -- 7.8 HGB 8.4* 8.8* 9.0* 8.5* < > 9.3* HCT 28.7* 30.0* 30.2* 28.2* < > 30.8* PLATELET 325 -- -- 315 -- 353 < > = values in this interval not displayed. Recent Labs 09/14/20 0351 09/13/20 1125 09/13/20 0539 09/12/20 0143 NA 140 -- 141 -- 140 K 4.4 4.2 4.3 < > 4.2 CL 107 -- 108* -- 102 CO2 24 -- 23 -- 24 BUN 13 -- 12 -- 17 CREATININE 1.11 -- 0.98 -- 1.15 < > = values in this interval not displayed. Recent Labs 09/14/20 0351 09/13/20 0539 09/12/20 0143 AST 24 41* 23 ALT 28 30 21 ALKPHOS 111* 110* 120* BILITOT 1.0 1.9* 2.7* BILIDIR 0.3 0.4* 0.3 Recent Labs 09/14/20 0351 09/13/20 0539 09/12/20 0143 CALCIUM 8.9 8.8 9.3 MAGNESIUM 0.96 1.04 1.05 Recent Labs 09/14/20 0351 09/13/20 0539 09/12/20 0143 INR 1.1 1.1 1.1 PT 12.2 12.8* 12.9* PTT 28 29 25 No results for input(s): CK, TROPONINT in the last 168 hours. Recent Labs 09/14/20 0738 09/14/20 0318 09/13/20 2331 09/13/20 2000 09/13/20 1643 09/13/20 1137 POCGLU 169 155 198 203* 192 212* Imaging: TTE- 09/10 ?? 1. The left ventricular chamber size is normal. Moderate concentric left ventricular hypertrophy is observed. There is normal global left ventricular systolic function with an EF of 65% and no wall motion abnormalities. 2. The right ventricle is normal in size. Right ventricular global systolic function is normal. The estimated pulmonary artery systolic pressure is elevated at 43 mmHg. 3. There is severe aortic valve stenosis. DOI .3, SVI 38.7, CORINE 0.8 cm2. MG 28 mmHg. 4. There is moderate mitral stenosis present. The mean gradient across the mitral valve is 8 mmHg at 83 bpm. The PHT is 80-90 ms. 5. The pericardium appears normal and there is no evidence of a pericardial effusion. Assessment and Plan: Shannan Chaudhary is a 80 y.o. female presenting for smptomatic anaemia of unclear etiology confounded by critical . HDS, benign abdominal exam. Will be worked up for TAVR/SAVR given critical that is likely contributing to her presenting symptoms. Will continue the amiodarone for AF. CT for TAVR staging today and likely TAVR later this week. #Severe (Low Output Low Gradient, s/p BAV for now recovered david) - Strict I&O, Daily wts - Target SBP>140, <180, PRN hydral to maintain - TAVR CT-ordered - f/u consult cardiac surgery ?? #CAD (DESx2 Ostial RCA 03/2020) - GDMT: Rosuvastatin 20mg - ASA 81mg (hold for bleeding) -c/w Plavix 75 QD - Metop 25mg q6hrs - Losartan 25mg daily, uptitrate as tolerated #pAF - EKG PRN - Telemetry - Mg >1; K>4 - Home Med: Amio 200 BID, metop as above - hold AC for bleeding ?? #Hx of GI bleed #concern for blood loss anemia #GI Malignancy w/u - IV PPI 40 BID - BM Regimen: Miralax, Bisacodyl supp - GI consult: EGD/ colo negative ?? #IDDM2 (A1c 8.5 03/2020) - Target BG 120-180 - A1c 8.3 - Lantus 10U - Moderate SSI - Home Med Victoza (hold), Dulaglutide (hold), Glargine & Lantus ?#Anemia, concern for blood loss anemia #RENETTA - Coag qd, maintain active T&S - c/w iron 324 BID - s/p 1x IV 300mg iron 09/13-will hold off re dosing today. - f/u Peripheral smear (ordered) - Transfuse Hb<8 - No anticoagulation given acute anemia -GI Consult as above ?? Diet: Carb Control diet 60/60/75 CHO counting level 2 Prophylaxis: none Disposition: Floor Code Status: Attempt Cardiopulmonary Resuscitation - Inpatient Alvin Serna MD, PGY-1 09/14/20 9:50 AM Cardiology Team S2 Associated attestation - Abiodun Chun MD - 09/14/2020 9:14 PM EST Cardiology Attending Addendum Active Hospital Problems Diagnosis Anemia, iron deficiency S/P balloon aortic valvuloplasty 06/24/2020 Aortic valve stenosis 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 I have interviewed and examined the patient, reviewed the available data, and have discussed my findings, assessment and plan with the patient and the team on rounds today. I agree with Dr. Serna'snote as below which reflects our discussion. Pt scheduled for TAVR tomorrow, on clopidogrel as antiplatelet agent. * Chioma Vann, RN - 09/13/2020 3:17 PM EST The patient/sales promotion representative has been provided a list of Home Health Agencies/DME vendors which servetheir preferred geographic area. A letter describing our affiliations was reviewed with them and they were educated about their right to choose where referrals are placed. Provided patient with [facility] Star Quality Rating for Home care hand out. Patient requests referral to [facility]. PHONE: [phone] FAX: [phone] Expected date of discharge: 09/18/20. Referral routed to the Plasma Table Operator for matching with agency/vendor and to provide any required information. Chioma Vann RN, MSN [facility] - Cardiology Office of Care Management Pager: [phone] Work * Mikala Borden, PT - 09/13/2020 12:58 PM EST Physical Therapy Evaluation Patient profile: Shannan Chaudhary??is a 80 y.o.??female presenting for HDS anaemia (Hb 5.4) unclear aetiology, on background of Severe (Low Output Low Gradient, s/p BAV for now recovered david), 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 Pt is being evaluated for TAVR. Pt also has a h/o mid back pain and spasms, was supposed to have outpt PT eval this week in [facility] to address. Patient with the following active problems: Past Medical History: Diagnosis Date ??? Actinic keratosis 08/31/2011 ??? Diabetes ??? Seborrheic keratosis 08/31/2011 ??? Severe aortic stenosis Past Surgical History: Procedure Laterality Date ??? CT PERITONEAL DRAINAGE 04/28/2020 CT Guided Drain Peritoneal 04/28/2020 [facility] RAD CAT SCAN ??? HYSTERECTOMY, VAGINAL ??? IR BILIARY TUBE CHECK/CHANGE/REMOVE 06/03/2020 IR Biliary Tube Check/Change/Remove 06/03/2020 Jos Collins, DO [facility] INTERVENTIONL RAD ??? IR CHOLECYSTOSTOMY TUBE PLACEMENT 04/22/2020 IR Cholecystostomy Tube Placement 04/22/2020 Jos Collins, DO [facility] INTERVENTIONL RAD ??? IR DRAIN CHECK/CHANGE/REMOVE 05/19/2020 IR Drain Check/Change/Remove 05/19/2020 Jos Collins, DO [facility] INTERVENTIONL RAD ??? PRO COLONOSCOPY, DIAGNOSTIC N/A 09/12/2020 COLONOSCOPY, DIAGNOSTIC performed by Mane Avila MD at [facility] ENDOSCOPY ??? PRO LAP, CHOLECYSTECTOMY/GRAPH N/A 07/15/2020 LAPAROSCOPIC CHOLECYSTECTOMY WITH CHOLANGIOGRAM (WRVU 11.47) performed by Hong Rosenthal MD at [facility] MAIN OR ??? PRO UPPER GI ENDOSCOPY, BIOPSY N/A 09/12/2020 EGD WITH BIOPSY (WRVU 2.49) performed by Mane Avila MD at [facility] ENDOSCOPY ??? 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 Precautions/Special Considerations: none specified Mobility and Positioning Recommendations: ?? Pt. to utilize FWW with supervision or without walker with close supervision for ambulation and transfers with nursing. ?? Please encourage up to chair for meal times as able. ?? Pt encouraged to ambulate frequently with staff, getting into the bathroom for toileting and walking out in the [place] >/= 3 times daily as able. Subjective: ???I think the baclofen is working for my back, heat helps too.?? Objective: Pt seen for evaluation today. Pain:mid back Pain, spasms,controlled at this time (lidocaine patch, baclofen, heat) Vital Signs: SpO2: 97% on RA HR: 65-67 BP: 117/58, 135/51 Mental Status: alert, oriented to person, place, and time Vision: intact Skin: Musculoskeletal: ROM: wfl Strength:wfl Sensation: has some mild diabetic neuropathies in LE's Bed Mobility: Supine to Sit: independent Sit to Supine: independent Transfers: Sit to Stand: independent Stand to Sit: independent Bed to Chair: independent(has been using commode independently in room) Gait: Distance: 180 ft Device used: FWW and no device Level of assist: Supervision (closer supervision with no device) Gait mechanics: normal pattern , slightly guarded without walker, feels less sure of herself, slower jyoti without walker Stairs: NT Balance: sitting good, standing static good, dynamic balance(no acute LOB with and without walker),feels slightly more secure with walker, has not been very mobile in past few days due to pain and hospitalization Therex: introduced pt to wall stand exercise to improve upper body slightly slouched posture (did not cause pain in mid back) Education: patient has been educated on Exercise and maintaining mobility this week while waiting for TAVR, so she does not get hospital acquired deconditioning and verbalizes understanding. Patient status, treatment, and mobility recommendations discussed with nursing. Assessment: Shannan Reedlerc was seen today for physical therapy evaluation. Pt presents with goodROM and strength, impaired sensation (mild d/t diabetic neuropathies), chronic back spasms (currently controlled with heat, baclofen and lidocaine patch) who is being evaluated for TAVR work-up. Pt moves well (prefers a walker today, just for security -has not been mobilizing much since admissionand prior due to low energy). Pt understands importance of mobilizing this week while awaiting TAVRto help maximize post procedure endurance and readiness for return home when medically cleared. Will monitor until TAVR and reassess post TAVR as ordered. The pt would benefit from skilled therapy services while in the hospital to maximize functional abilities. Discharge Recommendations: d/c to home when medically ready (VN if needed) Consult Recommendations: No other consults recommended at this time. Equipment needs: Standard walker, Commode and may ultimately benefit kellie francis FWW if it gives her some relief ofher back spasms when they occur. 1. Reassess post TAVR, as ordered, if she does indeed have TAVR while here. Plan: Therapy Frequency: monitor(until post TAVR,then reassess prior to d/c to home post TAVR) 2017 PT Evaluation Code Rationale: ?? Diagnosis & Pertinent Co-Morbidities, personal factors, and present illness affecting Plan of Care: (see above); Additional personal factors or co- morbidities that impact plan: ?? Total # of Factors: 0 1-2 3+ x ?? Examination of body system impairments, functional limitations and behaviors, and/or participation restrictions. Addressing 1-2 elements x Addressing 3 + elements Addressing 4 + elements ?? Clinical presentation: See assessment above. Stable/Uncomplicated Evolving/Fluctuating Symptoms Unstable/Unpredictable x ?? Clinical decision making of low complexity based on pt's functional performance as outlined in this evaluation. Time IN / OUT: 9106-7430 Total Evaluation Minutes, Physical Therapy: 20(eval) MIKALA BORDEN, PT Pager: [phone] Physical Therapy Inpatient Rehabilitation Department * Alvin Serna MD - 09/13/2020 7:01 AM EST Cardiology Progress Note Date: 09/13/20 Patient Information Name: Shannan Chaudhary : 1940 PCP: Reshma Baig MD PCP Admit Date: 09/10/2020 ID: Shannan Chaudhary is a 80 y.o. female presenting for HDS anaemia (Hb 5.4) unclear aetiology, onbackground of Severe (Low Output Low Gradient, s/p BAV for now recovered david), 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 Patient Active Problem List Diagnosis ??? ','Anemia, iron deficiency ??? S/P balloon aortic valvuloplasty 06/24/2020 ??? Esophagitis, erosive ??? Obesity (BMI 30.0-34.9) ??? Aortic valve stenosis Overview Note: 04/20/20 TTE SUMMARY: ??1. Mild concentric left ventricular hypertrophy is observed. [...] by low stroke volume index (23 ml/m2). 06/24/2020 Successful BAV: Conclusions: * Severe aortic stenosis * Valvuloplasty was performed * Successful balloon aortic valvuloplasty. Stenotic Valve Data After Valvuloplasty: Aortic Valve Peak Gradient - 19 Mean Gradient - 20 TTE 06/25/2020: SUMMARY: ?? 1. Limited for LV function and aortic valve structural and function. 2. Aortic valve is trileaflet and significantly calcified. There is severe aortic stenosis, with an CORINE by planimetry of 0.92 cm2 (mean gradient 18 mmHg, SVI 29 cc/m2). Trace aortic regurgitation. 3. Left ventricle is normal in size and function, with an EF by biplane of 72% and no wall motion abnormalities. 4. Right ventricle is normal in size and function. PASP of 35 mmHg plus estimated RA pressure. 5. The mitral valve leaflets and its apparatus are calcified. Mean gradient across the valve is 7 mmHg at a HR in the 60s. 6. No pericardial effusion. ??? Aortic stenosis - moderate Overview Note: [...] insulin ??? Hypertension ??? Hyperlipidemia ??? Arthritis Subjective/24h Events - pt is feeling well. Denies additional CP, dyspnea, nausea, diaphoresis, lightheadedness, dizziness. -EGD/[facility] on 09/12 negative -severe muscle spasms in the low back- in addition to acetaminophen, received baclofen -losartan and metop decreased for soft BP Objective Tele: NSR Scheduled Meds: ??? [START ON 09/14/2020] AMIOdarone 200 mg Oral Daily ??? pantoprazole EC 40 mg Oral BID ??? losartan 12.5 mg Oral Daily ??? ferrous gluconate 324 mg Oral BID ??? metoprolol tartrate 25 mg Oral Q6H BASIL ??? clopidogreL 75 mg Oral Daily ??? polyethylene glycoL 17 g Oral Daily ??? rosuvastatin 20 mg Oral QPM ??? insulin lispro 1-6 Units Subcutaneous Q4H BASIL ??? insulin glargine 10 Units Subcutaneous Daily ??? lidocaine 3 patch Transdermal Daily And ??? lidocaine 3 patch Transdermal Q24H Continuous Infusions: PRN Meds:.iohexoL, acetaminophen, hydrALAZINE, bisacodyl EC, potassium chloride ER OR potassiumchloride ER, glucose 40% oral geL OR dextrose 10% OR glucagon (human recombinant) Last value Range last 24 hrs Temperature Temp: 36.6 ??C (97.9 ??F) Temp: [36.6 ??C (97.9 ??F)-36.8 ??C (98.2 ??F)] Heart Rate Heart Rate: 55 Heart Rate: [51-64] Blood Pressure BP: 130/47 BP: (110-166)/(29-84) Respiratory Rate Resp: 16 Resp: [16-18] SpO2 SpO2: 95 % SpO2: [95 %-99 %] Lines: PIVx2 Intake/Output Summary (Last 24 hours) at 09/13/2020 1123 Last data filed at 09/13/2020 0600 Gross per 24 hour Intake 350 ml Output 0 ml Net 350 ml Patient Vitals for the past 168 hrs: Weight 09/13/20 0536 77.2 kg (170 lb 3.1 oz) 09/12/20 0656 77.1 kg (169 lb 15.6 oz) 09/10/20 1638 80.7 kg (178 lb) Physical Exam - General: Sleepy, obvious pallor to skin. Able to answer questions. - Lung: CTAB - CV: irregular, S1, S2, systolic crescendo murmur. - Abd: soft, NT, ND - Extremities: warm, well-perfused, radial/DP/PT pulses easily palpable Recent Labs 09/13/20 0539 09/12/20 2217 09/12/20 1912 09/12/20 0143 09/11/20 0536 WBC 6.1 -- -- -- 7.8 -- 7.7 HGB 8.5* 8.8* 8.7* < > 9.3* < > 8.4* HCT 28.2* 29.2* 28.3* < > 30.8* < > 27.2* PLATELET 315 -- -- -- 353 -- 290 < > = values in this interval not displayed. Recent Labs 09/13/20 0539 09/12/20 2217 09/12/20 1311 09/12/20 0143 09/11/20 0536 NA 141 -- -- 140 -- 140 K 4.3 4.2 3.9 4.2 < > 3.2* CL 108* -- -- 102 -- 101 CO2 23 -- -- 24 -- 27 BUN 12 -- -- 17 -- 13 CREATININE 0.98 -- -- 1.15 -- 0.90 < > = values in this interval not displayed. Recent Labs 09/13/20 0539 09/12/20 0143 09/11/20 0536 AST 41* 23 16 ALT 30 21 16 ALKPHOS 110* 120* 123* BILITOT 1.9* 2.7* 2.6* BILIDIR 0.4* 0.3 0.2 Recent Labs 09/13/20 0539 09/12/20 0143 09/11/20 0536 CALCIUM 8.8 9.3 9.1 MAGNESIUM 1.04 1.05 0.82 Recent Labs 09/13/20 0539 09/12/20 0143 09/11/20 0536 INR 1.1 1.1 1.1 PT 12.8* 12.9* 12.5 PTT 29 25 24* No results for input(s): CK, TROPONINT in the last 168 hours. Recent Labs 09/13/20 0716 09/13/20 0402 09/12/20 2346 09/12/20 1953 09/12/20 1555 09/12/20 1155 POCGLU 141 113 118 159 131 125 Imaging: TTE- 09/10 ?? 1. The left ventricular chamber size is normal. Moderate concentric left ventricular hypertrophy is observed. There is normal global left ventricular systolic function with an EF of 65% and no wall motion abnormalities. 2. The right ventricle is normal in size. Right ventricular global systolic function is normal. The estimated pulmonary artery systolic pressure is elevated at 43 mmHg. 3. There is severe aortic valve stenosis. DOI .3, SVI 38.7, CORINE 0.8 cm2. MG 28 mmHg. 4. There is moderate mitral stenosis present. The mean gradient across the mitral valve is 8 mmHg at 83 bpm. The PHT is 80-90 ms. 5. The pericardium appears normal and there is no evidence of a pericardial effusion. Assessment and Plan: Shannan Chaudhary is a 80 y.o. female presenting for smptomatic anaemia of unclear etiology confounded by critical . HDS, benign abdominal exam. Will be worked up for TAVR/SAVR given critical that is likely contributing to her presenting symptoms. Will continue the amiodarone for AF. #Severe (Low Output Low Gradient, s/p BAV for now recovered david) - Strict I&O, Daily wts - Target SBP>140, <180, PRN hydral to maintain - TAVR CT-ordered - f/u consult cardiac surgery ?? #CAD (DESx2 Ostial RCA 03/2020) - GDMT: Rosuvastatin 20mg - ASA 81mg (hold for bleeding) -c/w Plavix 75 QD - Metop 25mg q6hrs - Losartan 12.5 mg daily, uptitrate as tolerated #pAF - EKG PRN - Telemetry - Mg >1; K>4 - Home Med: Amio 200 BID, metop as above - hold AC for bleeding ?? #Hx of GI bleed #concern for blood loss anemia #GI Malignancy w/u - Liver Chem q48hrs - IV PPI 40 BID - BM Regimen: Miralax, Bisacodyl supp - GI consult: EGD/ colo negative ?? #IDDM2 (A1c 8.5 03/2020) - Target BG 120-180 - A1c 8.3 - Lantus 10U - Moderate SSI - Home Med Victoza (hold), Dulaglutide (hold), Glargine & Lantus ?#Anemia, concern for blood loss anemia #RENETTA - Coag qd, maintain active T&S - start iron 324 BID after procedures -1x IV 300mg iron today - f/u Peripheral smear (ordered) - Transfuse Hb<8 - No anticoagulation given acute anemia -GI Consult as above ?? Diet: Carb Control diet 60/60/75 CHO counting level 2 Prophylaxis: none Disposition: Floor Code Status: Attempt Cardiopulmonary Resuscitation - Inpatient Alvin Serna MD, PGY-1 09/13/20 11:23 AM Cardiology Team S2 Associated attestation - Abiodun Chun MD - 09/13/2020 5:33 PM EST Cardiology Attending Addendum Active Hospital Problems Diagnosis Anemia, iron deficiency S/P balloon aortic valvuloplasty 06/24/2020 Aortic valve stenosis 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 I have interviewed and examined the patient, reviewed the available data, and have discussed my findings, assessment and plan with the patient and the team on rounds today. I agree with Dr. Serna'snote as below which reflects our discussion. No obvious GI bleeding source found. Pt will have CTA for TAVR tomorrow and possible TAVR later this week (possibly Sunday or Sunday). * Esau Rahman MD - 09/12/2020 3:53 PM EST Structural heart misc note No acute bleeding source found on EGD/colo; Heyde???s in setting of is quite possible TAVR CT and cardiac surgery consult pending Would not repeat cath from 03/2020 unless unstable angina Remain on single antiplatelet I will [place] back with patient/family and team once CT/surgery consult completed. Appreciate rapidsupport from GI and close management of HF from inpatient team. * Abigail Todd - 09/12/2020 6:48 AM EST Cardiology Progress Note Date: 09/12/20 Patient Information Name: Shannan Chaudhary : 1940 PCP: Reshma Baig MD PCP Admit Date: 09/10/2020 ID: Shannan Chaudhary is a 80 y.o. female presenting for HDS anaemia (Hb 5.4) unclear aetiology, onbackground of Severe (Low Output Low Gradient, s/p BAV for now recovered david), 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 Patient Active Problem List Diagnosis ??? ','Anemia, iron deficiency ??? S/P balloon aortic valvuloplasty 06/24/2020 ??? Esophagitis, erosive ??? Obesity (BMI 30.0-34.9) ??? Aortic valve stenosis Overview Note: 04/20/20 TTE SUMMARY: ??1. Mild concentric left ventricular hypertrophy is observed. [...] by low stroke volume index (23 ml/m2). 06/24/2020 Successful BAV: Conclusions: * Severe aortic stenosis * Valvuloplasty was performed * Successful balloon aortic valvuloplasty. Stenotic Valve Data After Valvuloplasty: Aortic Valve Peak Gradient - 19 Mean Gradient - 20 TTE 06/25/2020: SUMMARY: ?? 1. Limited for LV function and aortic valve structural and function. 2. Aortic valve is trileaflet and significantly calcified. There is severe aortic stenosis, with an CORINE by planimetry of 0.92 cm2 (mean gradient 18 mmHg, SVI 29 cc/m2). Trace aortic regurgitation. 3. Left ventricle is normal in size and function, with an EF by biplane of 72% and no wall motion abnormalities. 4. Right ventricle is normal in size and function. PASP of 35 mmHg plus estimated RA pressure. 5. The mitral valve leaflets and its apparatus are calcified. Mean gradient across the valve is 7 mmHg at a HR in the 60s. 6. No pericardial effusion. ??? Aortic stenosis - moderate Overview Note: [...] insulin ??? Hypertension ??? Hyperlipidemia ??? Arthritis Subjective/24h Events - pt is feeling well. Denies additional CP, dyspnea, nausea, diaphoresis, lightheadedness, dizziness. -no transfusions since yesterday -severe muscle spasms in the low back, lidocaine patches tried in addition to acetaminophen, heat packs, w/o improvement -this morning denies any back pain -Reviewed CT A/P - no AAA, also blood pressures equal. Gave 5 mg baclofen as a one-time dose. Objective Tele: NSR, PVCs Scheduled Meds: ??? AMIOdarone 200 mg Oral BID ??? clopidogreL 75 mg Oral Daily ??? polyethylene glycoL 17 g Oral Daily ??? rosuvastatin 20 mg Oral QPM ??? insulin lispro 1-6 Units Subcutaneous Q4H BASIL ??? insulin glargine 10 Units Subcutaneous Daily ??? lidocaine 3 patch Transdermal Daily And ??? lidocaine 3 patch Transdermal Q24H ??? metoprolol tartrate 50 mg Oral Q6H BASIL ??? losartan 25 mg Oral Daily ??? pantoprazole 40 mg Intravenous BID Continuous Infusions: PRN Meds:.acetaminophen, hydrALAZINE, bisacodyl EC, potassium chloride ER OR potassium chlorideER, glucose 40% oral geL OR dextrose 10% OR glucagon (human recombinant) Last value Range last 24 hrs Temperature Temp: 36.6 ??C (97.9 ??F) Temp: [36.6 ??C (97.9 ??F)-36.8 ??C (98.2 ??F)] Heart Rate Heart Rate: 64 Heart Rate: [53-64] Blood Pressure BP: 160/46 BP: (95-160)/(32-52) Respiratory Rate Resp: 18 Resp: [14-18] SpO2 SpO2: 97 % SpO2: [93 %-99 %] Lines: PIVx2 Intake/Output Summary (Last 24 hours) at 09/12/2020 0648 Last data filed at 09/12/2020 0600 Gross per 24 hour Intake 1300 ml Output 1100 ml Net 200 ml Patient Vitals for the past 168 hrs: Weight 09/10/20 1638 80.7 kg (178 lb) Physical Exam - General: awake, alert, speaking in full sentences, answering questions and following commands appropriately, obvious pallor to skin - Lung: CTAB - CV: irregular, S1, S2, systolic crescendo murmur. - Abd: soft, NT, ND - Extremities: warm, well-perfused, radial/DP/PT pulses easily palpable Recent Labs 09/12/20 0143 09/11/20 1822 09/11/20 1147 09/11/20 0536 09/10/20 1925 WBC 7.8 -- -- 7.7 6.4 HGB 9.3* 8.2* 8.4* 8.4* 5.2* HCT 30.8* 26.9* 26.8* 27.2* 18.2* PLATELET 353 -- -- 290 264 Recent Labs 09/12/20 0143 09/11/20 1147 09/11/20 0536 09/10/20 1442 NA 140 -- 140 141 K 4.2 3.0* 3.2* 3.6 CL 102 -- 101 101 CO2 24 -- 27 25 BUN 17 -- 13 17 CREATININE 1.15 -- 0.90 1.02 Recent Labs 09/12/20 0143 09/11/20 0536 09/10/20 1442 AST 23 16 14 ALT 21 16 18 ALKPHOS 120* 123* 122* BILITOT 2.7* 2.6* 1.1 BILIDIR 0.3 0.2 0.3 Recent Labs 09/12/20 0143 09/11/20 0536 09/10/20 1442 CALCIUM 9.3 9.1 8.7 MAGNESIUM 1.05 0.82 -- Recent Labs 09/12/20 0143 09/11/20 0536 09/10/20 1925 INR 1.1 1.1 1.2 PT 12.9* 12.5 13.8* PTT 25 24* 24* No results for input(s): CK, TROPONINT in the last 168 hours. Recent Labs 09/12/20 0438 09/11/20 2348 09/11/20 2019 09/11/20 1940 09/11/20 1717 09/11/20 1216 POCGLU 173 121 179 181 285* 120 Imaging: TTE- 09/10 ?? 1. The left ventricular chamber size is normal. Moderate concentric left ventricular hypertrophy is observed. There is normal global left ventricular systolic function with an EF of 65% and no wall motion abnormalities. 2. The right ventricle is normal in size. Right ventricular global systolic function is normal. The estimated pulmonary artery systolic pressure is elevated at 43 mmHg. 3. There is severe aortic valve stenosis. DOI .3, SVI 38.7, CORINE 0.8 cm2. MG 28 mmHg. 4. There is moderate mitral stenosis present. The mean gradient across the mitral valve is 8 mmHg at 83 bpm. The PHT is 80-90 ms. 5. The pericardium appears normal and there is no evidence of a pericardial effusion. Assessment and Plan: Shannan Chaudhary is a 80 y.o. female presenting for smptomatic anaemia of unclear etiology confounded by critical . HDS, benign abdominal exam. Planned for an EGD and colonoscopy today. Afterwardswill be worked up for TAVR/SAVR given critical that is likely contributing to her presenting symptoms. Will continue the amiodarone for AF. #Severe (Low Output Low Gradient, s/p BAV for now recovered david) - Strict I&O, Daily wts - Target SBP>140, <180, PRN hydral to maintain - TAVR CT-ordered - consult cardiac surgery afterwards ?? #CAD (DESx2 Ostial RCA 03/2020) - GDMT: Rosuvastatin 20mg - ASA 81mg (hold for bleeding) -c/w Plavix 75 QD -decrease Metop 37.5mg q6hrs -started Losartan 12.5 mg daily, uptitrate as tolerated #pAF - EKG PRN - Telemetry - Mg >1; K>4 - Home Med: Amio 200 BID, metop as above - hold AC for bleeding ?? #Hx of GI bleed #concern for blood loss anemia #GI Malignancy w/u - Liver Chem q48hrs - IV PPI 40 BID - BM Regimen: Miralax, Bisacodyl supp - Diet: NPO diet (Give Meds) - GI consult: EGD/ colo today ?? #IDDM2 (A1c 8.5 03/2020) - Target BG 120-180 - A1c 8.3 - Lantus 10U - Moderate SSI - Home Med Victoza (hold), Dulaglutide (hold), Glargine & Lantus ?#Anemia, concern for blood loss anemia #RENETTA - Coag qd, maintain active T&S - start iron 324 BID after procedures -consider IV iron - Transfuse Hb<8 - No anticoagulation given acute anemia -GI Consult as above ?? Diet: NPO diet (Give Meds) Prophylaxis: none Disposition: Floor Code Status: Attempt Cardiopulmonary Resuscitation - Inpatient Abigail Todd MD, PGY-3 09/12/20 6:48 AM Cardiology Team S2 Associated attestation - Abiodun Chun MD - 09/12/2020 3:06 PM EST Cardiology Attending Addendum Active Hospital Problems Diagnosis Anemia, iron deficiency S/P balloon aortic valvuloplasty 06/24/2020 Aortic valve stenosis 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 I have interviewed and examined the patient, reviewed the available data, and have discussed my findings, assessment and plan with the patient and the team on rounds today. I agree with Dr. Todd's note as below which reflects our discussion. * Sarah Garland - 09/11/2020 7:52 PM EST Game Artist Encounter Note Patient Name: Shannan Chaudhary : [id number] MR#: [id number] Admit Date: 09/10/2020 4:42 PM Hospital Day 1 day Narrative: Rounding on the unit, entered Ms. Chaudhary's room. She was awake and welcomed a visit. Assessment: Ms. Chaudhary was coping with her surprise at her admission to . She had come in for an appointmentand was unexpectedly;t -to her- admitted. She discussed her family, her loneliness due to COVID isolation. Intervention and Outcome: Offered pastoral presence and empathic listening. Follow-up: Pastoral care follow-up recommended. Time in Direct Care: 25 minutes Sarah Krissy Gill 09/11/2020 * Alvin Serna MD - 09/11/2020 7:14 AM EST Cardiology Progress Note Date: 09/11/20 Patient Information Name: Shannan Chaudhary : 1940 PCP: Reshma Baig MD PCP Admit Date: 09/10/2020 ID: Shannan Chaudhary is a 80 y.o. female presenting for HDS anaemia (Hb 5.4) unclear aetiology, onbackground of Severe (Low Output Low Gradient, s/p BAV for now recovered david), 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 Subjective/24h Events - pt is feeling well. Denies additional CP, dyspnea, nausea, diaphoresis, lightheadedness, dizziness. -transfused 2U pRBCs for Hgb of 5.4. Objective Tele: Sinus, PVCs Scheduled Meds: ??? AMIOdarone 200 mg Oral BID ??? clopidogreL 75 mg Oral Daily ??? polyethylene glycoL 17 g Oral Daily ??? rosuvastatin 20 mg Oral QPM ??? insulin lispro 1-6 Units Subcutaneous Q4H BASIL ??? insulin glargine 10 Units Subcutaneous Daily ??? lidocaine 3 patch Transdermal Daily And ??? lidocaine 3 patch Transdermal Q24H ??? metoprolol tartrate 50 mg Oral Q6H BASIL ??? [START ON 09/12/2020] losartan 25 mg Oral Daily ??? bisacodyl EC 20 mg Oral Once Followed by ??? polyethylene glycoL (MIRALAX) oral powder 238 g Oral Once ??? pantoprazole 40 mg Intravenous BID Continuous Infusions: PRN Meds:.hydrALAZINE, bisacodyl EC, potassium chloride ER OR potassium chloride ER, glucose 40% oral geL OR dextrose 10% OR glucagon (human recombinant) Last value Range last 24 hrs Temperature Temp: 36.6 ??C (97.9 ??F) Temp: [36.6 ??C (97.9 ??F)-37.1 ??C (98.7 ??F)] Heart Rate Heart Rate: 58 Heart Rate: [58-92] Blood Pressure BP: 143/40 BP: (120-187)/(40-115) Respiratory Rate Resp: 17 Resp: [14-25] SpO2 SpO2: 97 % SpO2: [94 %-100 %] Lines: PIVx2 Intake/Output Summary (Last 24 hours) at 09/11/2020 1154 Last data filed at 09/11/2020 0900 Gross per 24 hour Intake 624 ml Output 2450 ml Net -1826 ml Patient Vitals for the past 168 hrs: Weight 09/10/20 1638 80.7 kg (178 lb) Physical Exam - General: awake, alert, speaking in full sentences, answering questions and following commands appropriately - Lung: CTAB - CV: irregular, S1, S2, systolic crescendo murmur. - Abd: soft, NT, ND - Extremities: warm, well-perfused, radial/DP/PT pulses easily palpable Recent Labs 09/11/20 0536 09/10/20 1925 09/10/20 1442 WBC 7.7 6.4 7.8 HGB 8.4* 5.2* 5.4* HCT 27.2* 18.2* 19.2* PLATELET 290 264 313 Recent Labs 09/11/20 0536 09/10/20 1442 NA 140 141 K 3.2* 3.6 CL 101 101 CO2 27 25 BUN 13 17 CREATININE 0.90 1.02 Recent Labs 09/11/20 0536 09/10/20 1442 AST 16 14 ALT 16 18 ALKPHOS 123* 122* BILITOT 2.6* 1.1 BILIDIR 0.2 0.3 Recent Labs 09/11/20 0536 09/10/20 1442 CALCIUM 9.1 8.7 MAGNESIUM 0.82 -- Recent Labs 09/11/20 0536 09/10/20 1925 INR 1.1 1.2 PT 12.5 13.8* PTT 24* 24* No results for input(s): CK, TROPONINT in the last 168 hours. Recent Labs 09/11/20 0507 09/10/20 2245 POCGLU 210* 225* Imaging: TTE 09/10 TTE- 09/10 ?? 1. The left ventricular chamber size is normal. Moderate concentric left ventricular hypertrophy is observed. There is normal global left ventricular systolic function with an EF of 65% and no wall motion abnormalities. 2. The right ventricle is normal in size. Right ventricular global systolic function is normal. The estimated pulmonary artery systolic pressure is elevated at 43 mmHg. 3. There is severe aortic valve stenosis. DOI .3, SVI 38.7, CORINE 0.8 cm2. MG 28 mmHg. 4. There is moderate mitral stenosis present. The mean gradient across the mitral valve is 8 mmHg at 83 bpm. The PHT is 80-90 ms. 5. The pericardium appears normal and there is no evidence of a pericardial effusion. Assessment and Plan: Shannan Chaudhary is a 80 y.o. female presenting for Symptomatic anaemia of unclear etiology confounded by critical . HDS, benign abdominal exam. Will f/u FOBT and GI evaluation-plan for EGD/Adams tomorrow. Will also be worked up for TAVR/SAVR given critical that is likely causing her presenting symptoms. Given AF, will continue on amio for now. #Severe (Low Output Low Gradient, s/p BAV for now recovered david) - Strict I&O, Daily wts - Target SBP>140, <180, PRN hydral to maintain - TAVR CT-ordered - consult cardiac surgery ?? #ASCVD (DESx2 Ostial RCA 03/2020) - GDMT: -c/w Rosuvastatin 20mg -ASA 81mg (hold for bleeding) -c/w Plavix 75 QD -started Metop 50mg q6hrs -started Losartan 25mg daily #pAF - EKG PRN - Telemetry - Mg >1; K>4 - Home Med: Amio 200 BID, metop as above - hold AC for bleeding ?? #Hx of GI bleed #GI Malignancy w/u - Liver Chem q48hrs - IV PPI 40 BID - BM Regimen: Miralax, Bisacodyl supp - Diet: NPO diet (Give Meds) - GI consult ?? #IDDM2 (A1c 8.5 03/2020) - Target BG 120-180 - A1c - Lantus 10U - Moderate SSI - Home Med Victoza (hold), Dulaglutide (hold), Glargine & Lantus ?#Anemia, unclear etiology - Coag qd, maintain active T&S -f/u iron studies - Transfuse Hb<8 - No anticoagulation given acute anemia -GI to evaluate with EGD/Adams tomorrow. Appreciate recs. ?? Diet: Clear Liquid NPO diet (Give Meds) Prophylaxis: none Disposition: Floor Code Status: Attempt Cardiopulmonary Resuscitation - Inpatient Alvin Serna MD, PGY-1 09/11/20 11:54 AM Cardiology Team S2 documented in this encounter H&P Notes * Asha Powell - 09/12/2020 1:48 PM EST Gastroenterology and Hepatology Pre-Procedure History and Physical Exam Procedure: EGD: Colonoscopy: Indication: Fe deficiency anemia, recent erosive esophagitis. FHX of CRC. Patient Active Problem List Diagnosis Code ??? Type 2 diabetes mellitus with circulatory disorder, with long-term current use of insulin E11.59, Z79.4 ??? Hypertension I10 ??? Hyperlipidemia E78.5 ??? Arthritis M19.90 ??? S/P laparoscopic cholecystectomy 07/15/2020 Z90.49 ??? Atrial fibrillation--- paroxysmal I48.91 ??? 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 Aortic stenosis - moderate I35.0 ??? Aortic valve stenosis I35.0 ??? Obesity (BMI 30.0-34.9) E66.9 ??? Anemia, iron deficiency D50.9 ??? S/P balloon aortic valvuloplasty 06/24/2020 Z98.890 ??? Esophagitis, erosive K22.10 EXAM: HEENT: Airway examined, oropharynx clear Mallampati Score: II (soft palate, uvula, fauces visible) LUNGS: Clear to auscultation HEART: Regular rate and rhythm, normal S1, S2 ABDOMEN: Normal bowel sounds, soft, non tender, non distended, A/P Proceed with the planned endoscopic procedure. ASA 3 - Patient with moderate systemic disease with functional limitations Sedation Plan: anesthesia Risks and benefits of the procedure explained to the patient. Consent signed. Please see separate consult note for further details. Asha Powell MD Gastroenterology PGY-6 09/12/2020 1:48 PM Pager #[phone] * Carol Reyna MD - 09/10/2020 10:37 PM EST Images from the original note were not included. Cardiovascular Medicine Admission History and Physical Patient Name: Shannan Farleyc Service: S2 Team Responsible Attending: EAMON MOSER JWAN, MD PCP: Reshma Baig MD PCP phone #: [phone] ID/Chief Complaint: Shannan Chaudhary is a 80 y.o. female presenting for HDS anaemia (Hb 5.4) unclear aetiology, on background of Severe (Low Output Low Gradient, s/p BAV for now recovered david),ASCVD (DESx2 Ostial RCA 03/2020), pAF History of Present Illness: Pt presents for exertional dyspnea and fatigue ongoing for last few weeks-2 months, limiting ability to perform ADLs. Symptoms associated with dizziness w/o orthostasis nor syncopal events. Has had infrequent episodes of nausea associated w/ minimal bilious emesis over last few days and constipation (is passing gas). Pt has not had any haematemesis, changes in stool colour from normal brown appearance. Pt presented in clinic to Dr. Rahman, where she was found to be profoundly anaemic, and was admitted to cardiology for further management. Of note, pt is s/p cholecystectomy in 05/2020 and s/p balloon valvuloplasty in 03/2020 to facilitate david. Review of Systems: Otherwise negative Problem List/Past Medical History Patient Active Problem List Diagnosis ??? Anemia ??? Obesity (BMI 30.0-34.9) ??? Aortic valve stenosis 04/20/20 TTE SUMMARY: ??1. Mild concentric left ventricular hypertrophy is observed. [...] by low stroke volume index (23 ml/m2). 06/24/2020 Successful BAV: Conclusions: * Severe aortic stenosis * Valvuloplasty was performed * Successful balloon aortic valvuloplasty. Stenotic Valve Data After Valvuloplasty: Aortic Valve Peak Gradient - 19 Mean Gradient - 20 TTE 06/25/2020: SUMMARY: ?? 1. Limited for LV function and aortic valve structural and function. 2. Aortic valve is trileaflet and significantly calcified. There is severe aortic stenosis, with an CORINE by planimetry of 0.92 cm2 (mean gradient 18 mmHg, SVI 29 cc/m2). Trace aortic regurgitation. 3. Left ventricle is normal in size and function, with an EF by biplane of 72% and no wall motion abnormalities. 4. Right ventricle is normal in size and function. PASP of 35 mmHg plus estimated RA pressure. 5. The mitral valve leaflets and its apparatus are calcified. Mean gradient across the valve is 7 mmHg at a HR in the 60s. 6. No pericardial effusion. ??? Aortic stenosis - moderate 04/20/20 TTE SUMMARY:?? 1. Mild concentric left [...] index (23 ml/m2). ??? Atrial fibrillation--- paroxysmal ?? Mar 2020: AF with RVR seen during admission with cholecystitis. ??? 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 04/21/20 Right and Left Heart Cath/ PCI Conclusions: * Two vessel coronary artery disease (LAD and RCA) * Mild pulmonary hypertension * Elevated left ventricular end diastolic pressure * Successful stent insertion of the ostial RCA lesion ??? Cholecystitis ??? Type 2 diabetes mellitus with circulatory disorder, with long-term current use of insulin ??? Hypertension ??? Hyperlipidemia ??? Arthritis Meds: No current facility-administered medications on file prior to encounter. Current Outpatient Medications on File Prior to Encounter Medication Sig Dispense Refill ??? lidocaine (XYLOCAINE) 5 % Ointment ??? metoprolol succinate XL (Toprol-XL) 100 mg Tablet Sustained Release 24 hr Take 2 tablets by mouth nightly. 30 tablet 12 ??? rosuvastatin (Crestor) 20 mg Tablet Take [...] by mouth daily. 14 each 0 ??? losartan (Cozaar) 25 mg Tablet Take 1 tablet by mouth daily. 90 tablet 3 ??? pantoprazole EC (Protonix) 40 mg Tablet, Delayed Release (E.C.) Take 1 tablet by mouth 2 times daily. (Patient not taking: Reported on 09/10/2020) 90 tablet 3 ??? VITAMIN D 1,000 unit Capsule take 1 capsule by mouth daily 0 ??? VITAMINS B COMPLEX Tablet take 1 capsule by mouth once daily 0 ??? fluocinolone acetonide (SYNALAR) 0.01 % Solution Apply twice daily to itchy areas and scalp (Patient not taking: Reported on 09/10/2020) 60 mL 3 ??? metroNIDAZOLE (METROCREAM) 0.75 % Cream Apply twice daily to face after washing (Patient not taking: Reported on 09/10/2020) 45 g 3 ??? insulin lispro (HUMALOG KWIKPEN) Insulin [...] daily or as needed. 200 each 3 Allergies: No Known Allergies Family History: History reviewed. No pertinent family history. Social History: Tobacco: none EtOH: none Illicits: none Living Situation: lives alone in ground level residence, normally able to perform basic ADLs, Granddaughter and Daughter help with household activities. No formal DPoA, however pt's 3 children shouldbe proxies equally per pt Vitals: Last value Range last 24 hrs Temperature Temp: 36.9 ??C (98.4 ??F) Temp: [36.4 ??C (97.5 ??F)-37.1 ??C (98.7 ??F)] Heart Rate Heart Rate: 63 Heart Rate: [59-92] Blood Pressure BP: (!) 136/115 BP: (123-169)/(42-115) Respiratory Rate Resp: 21 Resp: [14-25] SpO2 SpO2: 98 % SpO2: [95 %-100 %] Examination: GEN: Chey Chronically ill appearing pale female. AAOx4/4. NAD. HEENT: EOMI, PERRL, MMM. OP clear w/o lesions. CARDS: at 30deg IRR IRR. S1/S2. G3 late peaking systolic crescendo decrescendo murmur. No EHS/Murmurs/Heaves/Thrills otherwise. 5cm JVD in vertical height from angle of to. RESP: No increased WOB, No use of accessory muscles. CTAB; No wheezes, rhonchi, rales. Able to lie comfortably on supine ABDO: at supine + BS x4 ; soft, non-tender on superficial and deep palpation, distended per habitus, no obvious masses. No guarding/rigidity/rebound tenderness EXT: No peripheral oedema. Peripheral pulses 2+. Warm NEURO: No focal deficits SKIN: No obvious rashs/lesions/ecchymoses/petechiae Laboratory: CBC: Recent Labs 09/10/20192409/10/20 1442 06/25/20 0513 WBC 6.4 7.8 5.7 HGB 5.2* 5.4* 7.8* PLATELET 264 313 240 Chemistry: Recent Labs 09/10/20 1442 06/25/20 0513 06/24/20 0840 05/08/20 0546 NA 141 139 137 136 K 3.6 3.6 3.6 4.1 CL 101 108* 102 107 CO2 25 23 24 21* BUN 17 10 10 20* CREATININE 1.02 0.73 0.83 0.85 GLUCOSE 261* -- 128 152 Recent Labs 09/10/20 1442 06/25/20 0513 06/24/20 0840 05/08/20 0546 05/07/20 0645 04/20/20 0243 CALCIUM 8.7 8.4* 8.9 8.9 8.9 < > 8.3* MAGNESIUM -- 0.70 -- 0.79 0.82 < > 0.71 PHOS -- -- -- -- -- -- 3.6 < > = values in this interval not displayed. LFT's: Recent Labs 09/10/20 14406/25/20 0513 05/04/20 0518 04/20/20 0243 BILITOT 1.1 0.9 0.3 < > Not Perf 1.5* BILIDIR 0.3 -- -- -- 0.5* ALBUMIN 4.1 3.4 2.9* < > Not Perf 2.8* ALKPHOS 122* 86 133* < > Not Perf 139* ALT 18 12 11 < > Not Perf 22 AST 14 15 12 < > Not Perf 18 < > = values in this interval not displayed. Coags: Recent Labs 09/10/201924 PT 13.8* INR 1.2 PTT 24* Cardiac enzymes: Recent Labs 04/21/20 0445 04/20/20 2355 04/20/20 1735 TROPONINT 0.13* 0.12* 0.17* Microbiology: Reviewed in eDH Diagnostic Studies: EKG- HR 65s, NSR, RBBB TTE- 09/10 ?? 1. The left ventricular chamber size is normal. Moderate concentric left ventricular hypertrophy is observed. There is normal global left ventricular systolic function with an EF of 65% and no wall motion abnormalities. 2. The right ventricle is normal in size. Right ventricular global systolic function is normal. The estimated pulmonary artery systolic pressure is elevated at 43 mmHg. 3. There is severe aortic valve stenosis. DOI .3, SVI 38.7, CORINE 0.8 cm2. MG 28 mmHg. 4. There is moderate mitral stenosis present. The mean gradient across the mitral valve is 8 mmHg at 83 bpm. The PHT is 80-90 ms. 5. The pericardium appears normal and there is no evidence of a pericardial effusion. Cardiac Catheterization- 05/2020 * Severe aortic stenosis * Valvuloplasty was performed * Successful balloon aortic valvuloplasty. ASSESSMENT: Shannan Chaudhary is a 80 y.o. female presenting for Symptomatic anaemia of unclear aetiology confounded by critical . Pt describes a progressive course of worsening symptoms consistent with a chronic small volume blood loss rather than an acute bleed, consistent with her HD stability. A synthetic derangement vs sequestration is unlikely given other cell lines remain wnl. Pt is s/p surgery several months ago, and now has new evolution of symptoms to include constipation and emesis. While an acute obstruction is unlikely given benign exam, would be worthwhile to f/u FOBT and GI eval (colo likely higher yield than EGD) vs CT-AP w/ PO contrast to evaluate for any regions of lumenal narrowing preceding colo. Alternatively, in setting of critical , anaemia 2/2 Hb shearing from deranged ewiiaapaayp valve, analogous to mechanical valve trauma may explain anaemia. Will be worked up for TAVR given critical that islikely playing a significant role in her current presentation. Will optimise HD in interim while awaiting TAVR/SAVR workup. As Tachycardia and hypotension are poorly tolerated in stenotic fixed defects of , will rate control w/ home amio +/- home metop at split dosing. Will aim to avoid tachycardia w/ target HR <80 to reduce myocardial O2 demand that occurs w/ greater flow past stenotic lesion. Will d/ anti-HTNs and keep a PRN hydral for SBP >170. Ptremains preload-dependent w/ greater fraction of CO dependent on LA kick. Thus as pt is intermittently between Af and NSR, will maintain amio to keep in NSR and will aim to avoid arrhythmias including AF in order to maintain LA kick for preload. PLAN: NEURO/PSYCH #Pain/Sedation - Pain: lido x3 RESP #Risk of Flash pOedema - CTM O2 req w/ transfusions CARD Volume/Pump #Severe (Low Output Low Gradient, s/p BAV for now recovered david) - Strict I&O, Daily wts - Target SBP>140, <180, PRN hydral to maintain - Lasix 40 PO PRN w/ transfusions to avoid Flash pOedema - TAVR CT - consult cardiac surgery Ischaemia #ASCVD (DESx2 Ostial RCA 03/2020) - GDMT: Rosuvastatin 20mg, ASA 81mg (hold for bleeding), Plavix 75 QD, Metoprolol 200 QD (hold as HR 60s on amio), Losartan 25 (hold for hypotension) Arrhythmia #pAF - EKG PRN - Telemetry - Mg >1; K>4 - Home Med: Amio 200 BID, metop as above - hold AC for bleeding RENAL #FREDDIE - B/L Cr: 0.8 GI #Suspected GI Malignancy - Liver Chem q48h, - IV PPI 40 BID - BM Regimen: Miralax, Bisacodyl supp - Diet: NPO diet (Give Meds) - GI consult for EGD +/- Adams (Consulted, need to discuss) ENDO #IDDM2 (A1c 8.5 03/2020) - Target BG 120-180 - A1c - Lantus 10U - Moderate SSI - Home Med Victoza (hold), Dulaglutide (hold), Glargine & Lantus ID #FREDDIE HEME #Anaemia unclear Aetiology - Coag qd, maintain active T&S - Peripheral smear - Transfuse Hb<8 - No anticoagulation given acute anemia MISC - Access: piv 20g x1, maintain 18g x2 (ordered) - Code Status: Attempt Cardiopulmonary Resuscitation - Inpatient - Dispo:floors - PT/OT ordered Carol Reyna MD PGY2, Cardiology S2, Pager [phone] 09/11/2020 Associated attestation - Abiodun Chun MD - 09/11/2020 5:52 PM EST Cardiology Attending Addendum Active Hospital Problems Diagnosis Anemia, iron deficiency S/P balloon aortic valvuloplasty 06/24/2020 Aortic valve stenosis 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 I have interviewed and examined the patient, reviewed the available data, and have discussed my findings, assessment and plan with the patient and the team on rounds today. I agree with Dr. Reyna 's note of last night as below and with Dr. Serna's note of today which reflects our discussion. Appreciate input by GI team. documented in this encounter ED Notes * Vianey Rose RN - 09/10/2020 9:53 PM EST Pt tolerating transfusion- to transport to assigned bed. * Evette Le RN - 09/10/2020 7:29 PM EST Patient is resting comfortably. * Evette Le RN - 09/10/2020 7:03 PM EST Patient is resting comfortably. Denies current pain. Abdomen soft, non-tender. * Osito Calabrese Jr., MD - 09/10/2020 5:48 PM EST Shannan Chaudhary is an 80 y.o. female who presents to the ED with: Chief Complaint Patient presents with ??? Abnormal Labs hemoglobin 5.4 I saw this patient 09/10/2020 at ~ 8:38 PM HPI Shannan Chaudhary is a 80 y.o. female with a PMH significant for cholecystectomy, severe aortic stenosis, who presents to the Emergency Department with anemia (Hgb 5.4). She reports a two month history of worsening generalized fatigue. S Of note, she reports a ballon valvuloplasty last March and cholecystectomy in May. She states that she has not felt herself since her surgeries but this began to worsen approximately 2 months ago. She reports worsening exercise tolerance, though denies any chest pain, shortness of breath, infectious symptoms, abdominal pain,or swelling. She does endorse mild vomiting the last two weeks, stating that she gets nauseous withexesion and will spit up bilious fluid. This occurs infrequently, at most every two days. She had follow up appointments with her surgeon and food general manager today, who identified her abnormally low hemoglobin of 5.4 during their workup. Review of Systems: A 10 point review of systems was performed and was negative except as noted in HPI Patient Vitals for the past 8 hrs: BP Temp Temp src Pulse Resp SpO2 Height Weight 09/10/202021 155/53 37.1 ??C (98.7 ??F) Oral 68 25 96 % -- -- 09/10/201999 148/54 -- -- 63 17 96 % -- -- 09/10/20 1900 148/55 -- -- 64 19 99 % -- -- 09/10/20 1831 147/59 -- -- 67 17 95 % -- -- 09/10/20 1638 137/42 36.8 ??C (98.2 ??F) Temporal 59 20 99 % 157.5 cm (5' 2) 80.7 kg (178 lb) Physical Exam: Physical Exam Constitutional: Appearance: Normal appearance. She is normal weight. HENT: Head: Normocephalic. Nose: Nose normal. Mouth/Throat: Mouth: Mucous membranes are moist. Pharynx: Oropharynx is clear. Eyes: Conjunctiva/sclera: Conjunctivae normal. Pupils: Pupils are equal, round, and reactive to light. Cardiovascular: Rate and Rhythm: Normal rate and regular rhythm. Pulses: Normal pulses. Heart sounds: Murmur present. Pulmonary: Effort: Pulmonary effort is normal. Breath sounds: Normal breath sounds. No wheezing, rhonchi or rales. Abdominal: General: Abdomen is flat. Bowel sounds are normal. Palpations: Abdomen is soft. Musculoskeletal: Normal range of motion. Skin: General: Skin is warm. Neurological: General: No focal deficit present. Mental Status: She is alert and oriented to person, place, and time. Mental status is at baseline. Psychiatric: Mood and Affect: Mood normal. ED Course: - Patient was evaluated and discussed with Dr. Li - Medications, allergies, past medical history, surgical history, family history, and social history were reviewed ED Course: - Medications and fluid administered: Medications - No data to display - I have reviewed lab results, which are significant for: Labs Reviewed PROTHROMBIN TIME - Abnormal; Notable for the following components: Result Value PT 13.8 (*) All other components within normal limits APTT - Abnormal; Notable for the following components: PTT 24 (*) All other components within normal limits HEMOGRAM - Abnormal; Notable for the following components: RBC 2.75 (*) Hemoglobin 5.2 (*) Hematocrit 18.2 (*) MCV 66.2 (*) MCH 18.9 (*) MCHC 28.6 (*) RDWCV 17.3 (*) nRBC Abs Auto 0.030 (*) All other components within normal limits RAPID COVID-19 PCR ([facility]) TYPE AND SCREEN ([facility] [place]/[facility]) CBC (WITH DIFF) ABO/RH TYPING ANTIBODY SCREEN DIFFERENTIAL, AUTOMATED POCT STOOL OCCULT BLOOD ABORH RECHECK STATUS PREPARE RBC TRANSFUSE RED BLOOD CELLS - I have reviewed imaging, which is significant for: No orders to display - I have reviewed EKG results, which is significant for: INTERPRETATION Final Normal sinus rhythm Right bundle branch block Abnormal ECG When compared with ECG of 25-JUN-2020 07:16, No significant change was found Confirmed by Rambo Pak MD ([id number]) on 09/10/2020 5:07:46 PM Assessment and Plan: MDM: 80 y.o. female who presents for anemia. Her anemia is most likely the cause of her fatigue over the oast few months. Her presentation is not consistent with an acute bleed and rectal exam did not show evidence of sammi or occult bleed. She denies any trauma or injuries. Hemolytic work up has not yet been undertaken but could represent a possibility with her history of valvular disorder. Cardi ology was consulted who agreed to admit the patient for TAVR. Plan: - Admit to cardiology for TAVR Osito Calabrese Jr., MD Resident 09/10/202037 Associated attestation - Eamon Moser MD - 09/15/2020 6:14 PM EST ED ATTENDING ATTESTATION The patient was seen in conjunction with the resident physician. I have independently performed thekey portions of the history and physical exam. I have personally reviewed nursing notes, vital signs, and diagnostic studies including labs, imaging studies and EKGs. I have discussed the details of the case with the resident and agree with the assessment and plan as described in the resident's note, unless stated otherwise in my separate note. Did this case involve critical care? No * Mane Alexander MD - 09/10/2020 3:50 PM EST 80 y.o. with Hgb=5.4 today in clinic Mane Alexander MD 09/10/20 1551 documented in this encounter Miscellaneous Notes * Op Note - Pan Hurtado MD - 09/18/2020 2:08 PM EST [facility] SECTION OF CARDIAC SURGERY OPERATIVE REPORT 09/15/20 ? PATIENT NAME:??Shannan Chaudhary?1940?? MR#:??[id number] ? REFERRING PHYSICIAN:?? Reshma Baig MD [address] [place] [id number] ?? PRE-OPERATIVE DIAGNOSIS: Severe aortic stenosis ? POST-OPERATIVE DIAGNOSIS: Same ? PROCEDURE: ?? 1. Implantation of catheter-delivered prosthetic aortic heart valve; percutaneous femoral artery approach (23??mm Bobo SAPIEN3 transcatheter heart valve) ? SURGEON: Pan Hurtado MD ? RN BSN: ?? Esau Rahman M.D. ? ANESTHESIA:? Conscious sedation ? CLINICAL HISTORY:? This is a??80-year-old??woman with aortic stenosis. The patient was evaluated for TAVR and found blane an appropriate candidate and is now taken to the syrup machine laborer for transcatheter aortic valve replacement using the S3 device. Risks including , stroke, vascular injury, and need for emergent conversion to open cardiac surgery were discussed with the patient in detail. Surgical priority is elective. ? DESCRIPTION OF PROCEDURE:? After informed consent was obtained, the patient was brought to the cardiac catheterization laboratory and positioned supine on the vascular OR table. Prophylactic antibiotics were administered preoperatively. Invasive monitoring lines were placed by the cardiothoracic anesthesia team. The patient was prepped and draped from the chin to mid thighs. Surgical time-out was performed. The??right??femoral??artery was accessed percutaneously and a 6-Martiniquais sheath placed.??Additionally, the??left??common femoral??artery and??left??femoral??vein were accessed percutaneously and 6-Martiniquais sheaths placed. ? The patient was systemically heparinized with 100 units per kg of IV heparin to goal ACT greater than 250. A 6-Martiniquais pigtail catheter is then passed up from the??left femoral??arterial sheath and positioned in the right coronary sinus. A transvenous pacing lead is then advanced from the left??femoral vein up to the right ventricle. The #6-Martiniquais right femoral sheath is then upsized for a 14-Martiniquais Bobo E-sheath over a Alina wire. A root angiogram was shot, and the optimal view for visualization of the aortic root was obtained. ? The aortic valve was then crossed using a straight-tip wire and an AL- 2??catheter. The straight wire is exchanged for a long flexible J-tip wire and the AL-2??exchanged for a 6-Martiniquais angled pigtail catheter. A stiff wire was positioned in the apex of the LV under NEELY imaging. Care is taken to avoid contact with the ventricular wall with the transition point of the wire to avoid perforation. The C-arm is then changed back to the ideal imaging plane in ISIS. ? A 23-mm Bobo SAPIEN3 device is simulataneously prepped and loaded on the back table and then passed from the right groin and positioned across the aortic valve. The ideal landing zone is identified based on the pigtail catheter in the right coronary sinus, heavy aortic valve calcification, and findings on root angiograms. ? Rapid pacing to a rate of??180??and a blood pressure less than 50 mm Hg is performed, and a final positioning angiogram shot. This is then repeated and the valve deployed with an??90:10 split above and below the plane of the annulus. Deployment is done under cineangiography with the root angiogram performed at the beginning of deployment to further delineate the landing zone. The balloon and Commander system are removed through the access sheath. Thoracic aortogram demonstrates no significant paravalvular leak. Similar findings are seen by TTE. The catheters are removed over a wire. The #14-Martiniquais introducer sheath is removed, and the??right??common femoral arteriotomy closed percutaneously two??ProGlide closure devices. After holding direct pressure for 20 minutes there was no evidence of bleeding from the closure site. ? Protamine is administered. Hemostasis is obtained. ? All sponge, needle, and instrument counts are reported correct at the end of the case. The patient is taken to syrup machine laborer recovery in stable condition at the end of procedure. ? and??I??jointly performed the procedure and all of the critical components ?? Attestation: Case Date: 09/15/2020 PAN HURTADO MD 09/23/2020 * Brief Op Note - Pan Hurtado MD - 09/18/2020 2:08 PM EST Brief Operative Note Patient Name: Shannan Chaudhary : [id number] MR#: [id number] Case Date: 09/15/2020 Surgeon: Surgeon(s) and Role: Panel 1: * Esau Rahman MD - Primary * Dago Merchant PA - Physician Skeins Yarn Examiner Panel 2: * Pan Hurtado MD - Primary Panel 3: * Darwin Connors MD - Primary Preoperative diagnosis: Aortic stenosis, severe [I35.0] TAVR Postoperative diagnosis: * No post-op diagnosis entered * Procedure(s) (LRB): CARDIAC CATHETERIZATION (N/A) COMBINED RIGHT & LEFT HEART CATH,INC INJ FOR L VENTRICULOGRAPHY (N/A) @TRANSCATHETER AORTIC VALVE REPLACEMENT (TAVR), PERCUTANEOUS FEMORAL (WRVU 25.13) (N/A) TRANSESOPHAGEAL ECHO DURING CATH/EP PROCEDURE (N/A) Anesthesia: MAC Findings: Complications: None Intake: Intraprocedure Crystalloid Total Intake Lactated Ringers 700.00 mL PRBC Volume 350 mL Total Intake 1050 mL Output Blood Loss 10 mL Total Output 10 mL Net Net Volume 1040 mL Transfusion No data found in the last 1 encounters. Output: Estimated Blood Loss: 10 mL Urine Output:: (no urine output recorded) Other Output: (no other output recorded) Drains: None Specimens removed during surgery: None Disposition: aroused from sedation, and taken to the recovery room in a stable condition Condition: doing well without problems Attestation: Case Date: 09/15/2020 I performed this procedure without the involvement of a resident. (Please see the Surgical Encounter Summary for any Implant and Specimen details pertinent to this patient.) Infection Bundle used? N/A * Plan of Care - Ren Philippe RN - 09/18/2020 2:01 PM EST Problem: Patient Care Overview Goal: Plan of Care Review Outcome: Outcome (s) achieved Date Met: 09/18/20 09/18/20 0493 Coping/Psychosocial Plan Of Care Reviewed With patient Plan of Care Review Progress improving OUTCOME EVALUATION : OUTCOME SUMMARY: A+O x4. Denies CP, denies SOB. Groin site dressings are off. Sites are CDI. Pt does not have episodes of weakness or dizziness. VSS. Pt has ecchymosis in arms from repeated Blood draws.Walker delivered for home use INDIVIDUALIZED FALL PREVENTION INTERVENTIONS: Patient-specific fall risk factors per assessment: [current deficits]: ECG wires, IVsites, Weak, walker Assistance [level of assistance required for transfers and ambulation]: FWW Supervision [direct monitoring required during toileting and ADLs]: IND Surveillance [continuous indirect monitoring]: Telemetry, call aguilar in reach, freq rounding Patient-specific fall prevention interventions for sensory deficits provided, if applicable: Yes CPG GOAL OUTCOME EVALUATION: Ongoing * Consult Note - Sarah Nieto RN - 09/17/2020 12:28 PM EST [facility] [place] CARDIAC REHABILITATION Shannan Farleyc was seen today regarding participation in the outpatient Phase 2 Cardiac Rehabilitation at [facility]. The patient agrees to a referral to this program. The referral will be sent at discharge and the patient should be contacted by the Program within 1- 2 weeks from discharge. * Plan of Care - Juan Ballesteros RN - 09/17/2020 3:59 AM EST OUTCOME EVALUATION NOTE: OUTCOME SUMMARY: Pt A+Ox4, on RA, recovering well post op. R femoral site still bruised from bleeding post TAVR, tender to touch. L femoral site CDI. Pt OOB to bathroom without issue. Difficulty keeping BP below 140 systolic (as ordered), hydralazine given once every four hours to bring back WNL. Cozaar ordered by robyn gonzalez to start on dayshift. SR on tele. Pt concerned about being d/c today, hopes to stay for an additional night as she lives alone in an apartment. PLAN MOVING FORWARD: Monitor/address BPs. Lonnie fem site monitoring. D/C planning. INDIVIDUALIZED FALL PREVENTION INTERVENTIONS: Patient-specific fall risk factors per assessment: [current deficits]: Post op. Generalized weakness. Assistance [level of assistance required for transfers and ambulation]: SBA. Supervision [direct monitoring required during toileting and ADLs]: SBA. Surveillance [continuous indirect monitoring]: Hourly rounding. Patient-specific fall prevention interventions for sensory deficits provided, if applicable: Assistance w/ADLs. CPG GOAL OUTCOME EVALUATION: * Plan of Care - Juan Ballesteros RN - 09/16/2020 5:08 AM EST OUTCOME EVALUATION NOTE: OUTCOME SUMMARY: Pt A+Ox4, VSS, titrated from 4L to RA overnight. NSR 58-75 on tele. Pts previously bleeding R femoral site (perclosed, injected w/lido/epi), bruising present, marked, slightly tender. No hematoma palpated. L femoral site CDI, no hematoma. RLE slightly cooler to touch than right, although that has improved since the beginning of the night. Palpable pulses bilaterally. Pt was unable to void spontaneously with a bladder scan of 578cc, pt able to come off of bedrest and was able to void 250cc on commode w/large BM, PVR of 176cc. Will continue to monitor. No change to femoral sites after getting up to commode. Blood glucose stable overnight, covered Q4 as ordered. Hgb 9.9 this morning, Sodium 137, K+ 4.0, Mag 0.80, Cr 0.99, BUN 18. No complaints of pain, outside of R femoral site w/pressure onpalpation. Pt given bed bath when up to commode, pleasant and appreciative. EKG completed post TAVR this morning. PLAN MOVING FORWARD: Advance diet. PT/OT. Transfer to floor. INDIVIDUALIZED FALL PREVENTION INTERVENTIONS: Patient-specific fall risk factors per assessment: [current deficits]: Generalized weakness. Post op. Tele cables. Assistance [level of assistance required for transfers and ambulation]: x1-2 assist. Supervision [direct monitoring required during toileting and ADLs]: x1-2 assist. Surveillance [continuous indirect monitoring]: Hourly rounding. Tele. Q2 NV/femoral checks. Patient-specific fall prevention interventions for sensory deficits provided, if applicable: Assistance with ADLs. CPG GOAL OUTCOME EVALUATION: * Brief Op Note - Esau Rahman MD - 09/15/2020 2:45 PM EST Brief Operative Note Patient Name: Shannan Chaudhary : [id number] MR#: [id number] Case Date: 09/15/2020 Surgeon: Surgeon(s) and Role: Panel 1: * Esau Rahman MD - Primary Panel 2: * Pan Hurtado MD - Primary Panel 3: * Darwin Connors MD - Primary Preoperative diagnosis: Aortic stenosis, severe [I35.0] TAVR Postoperative diagnosis: *Successful 23 mm TF TAVR, complicated by hypotension post case following administration of hydralazine 20 mg IV and protamine 40 mg TTE was used to rule out pericardial effusion and coronary obstruction. No regional wall motion abnormalities seen. Aortogram used to rule out vascular complications: no bleeding or stenosis seen. Hgb rechecked twice: 8 and 9, approximately. IV fluids given with improvement in blood pressure. Procedure(s) (LRB): CARDIAC CATHETERIZATION (N/A) COMBINED RIGHT & LEFT HEART CATH,INC INJ FOR L VENTRICULOGRAPHY (N/A) @TRANSCATHETER AORTIC VALVE REPLACEMENT (TAVR), PERCUTANEOUS FEMORAL (WRVU 25.13) (N/A) TRANSESOPHAGEAL ECHO DURING CATH/EP PROCEDURE (N/A) Access: RFA 14 Fr successful perclose LFA 6 Fr, sutured in place for monitoring LFV [address] for monitoring No hematoma. All access US guided with visualization of front wall puncture. The patient tolerated the procedures smoothly and was transferred from the cardiac catheterization lab to the next level of care in stable condition, without pain. No evident early complications. Results communicated with cardiac surgery team led Dr Hurtado and Amanda present during case, service food general manager Dr Chun, and with the patient and their family. A time-out was conducted prior to the start of the procedure to verify the correct patient and procedure, procedure location, and all relevant critical information. Full report to follow. ESAU RAHMAN MD TAVR, Transcatheter Aortic Valve Replacement: Transfemoral See report for anesthesia and echo staffing. Anesthesia provided sedation. The cardiac surgeon was present and immediately available to assist, and they crossed the valve andbrought the valve into the aorta. Ultrasound and fluoroscopy used to select vascular access location. See description of arteries under access site management. Visualization of front wall puncture and confirmation of wire entry abovefemoral bifurcation and below inferior epigastric. Percutaneous access with Preclose technique: two Perclose placed, followed by heparin bolus (weightbased, 80-100 units/kg to maintain ACT greater than 250 seconds) followed by the THV e-sheath (the sheath is 14 Fr for 23/26 mm valves, and 16 Fr for 29 mm valve) over a Alina wire. Left FA - 6 Fr. Sheath. A 6 Fr pigtail was placed over a wire into the aortic root. Left FV - 6 Fr. Sheath, through which a 5 Fr balloon-tipped pacemaker was placed to RV apex under fluoroscopy; pacing thresholds confirmed, pacer secured. Pacer set to back up 40 bpm, burst pacing at180 bpm, 10 mA. This sheath was upsized to a 7 Fr. The aortic valve was crossed with a 6 Fr AL1 catheter and straight wire; this was then exchanged for a 0.035 Amplatz extra stiff guidewire with LV curve placed retrograde across the aortic valve. Thedecision was made to implant a 23 mm JEMMA 3 valve. This JEMMA 3 valve was prepped in a nominal fashion. After confirmation of valve position, the Commander delivery system was advanced, the valve was mounted on the balloon in the descending thoracic aorta and the valve delivered around the aortic arch to position across the ewiiaapaayp aortic valve. Rapid ventricular pacing was instituted, and aortography showed the valve to be properly positioned. With rapid ventricular pacing, the valve was deployed in good position. TTE showed the valve to be properly positioned with trace paravalvular leak.Final pressure gradients were obtained (see hemodynamics section) and final root angiography showeda stable THV. Aortic angiography performed, with trace aortic insufficiency. The JEMMA 3 valve wasplaced with the ventricular portion of the center marker at the base of the annulus, leading to a 90/10 placement. After hydralazine and protamine, blood pressure fell to 70 mmHg systolic. TTE was used to rule out pericardial effusion and coronary obstruction. No regional wall motion abnormalities seen. Aortogram used to rule out vascular complications: no bleeding or stenosis seen. Hgb rechecked twice: 8 and 9, approximately. IV fluids given with improvement in blood pressure. The delivery catheter was removed. The delivery sheath was withdrawn over a wire and Perclose was performed successfully. The other arterial site and venous site were sutured into place. Sterile dressings were applied and the patient was then transferred to the next stage of care in stable condition for recovery. Successful transcatheter aortic valve replacement via percutaneous transfemoral access with a 23 mmSAPIEN 3 THV. * Plan of Care - Jos Champagne RN - 09/15/2020 6:16 AM EST Pt. Is A/O x 4. SR on tele. No complaints of CP or SOB overnight. Ambulated to bedside commode w/o difficulty. NPO for possible TAVR. * Plan of Care - Ren Philippe RN - 09/14/2020 6:27 PM EST Problem: Patient Care Overview Goal: Plan of Care Review Outcome: Ongoing (Interventions Implemented as Appropriate) 09/14/20 1819 Coping/Psychosocial Plan Of Care Reviewed With patient Plan of Care Review Progress no change OUTCOME EVALUATION NOTE: OUTCOME SUMMARY: A+O x4. Denies CP, denies SOB, Ambulated around unit with resultant fatigue, but no CP, No observable SOB. Pt had shower. VSS.- SB/SR. BG slightly elevated, covered with SS insulin. PLAN MOVING FORWARD: NPO for possible TAVR, either Wed.or Sun. INDIVIDUALIZED FALL PREVENTION INTERVENTIONS: Patient-specific fall risk factors per assessment: [current deficits]: ECG wires, IVsites, Assistance [level of assistance required for transfers and ambulation]: SBA Supervision [direct monitoring required during toileting and ADLs]: IND Surveillance [continuous indirect monitoring]: Telemetry, call aguilar in reach, freq rounding Patient-specific fall prevention interventions for sensory deficits provided, if applicable: Yes CPG GOAL OUTCOME EVALUATION: Ongoing * Plan of Care - Cristhian Kerr RN - 09/13/2020 4:39 PM EST Problem: Patient Care Overview Goal: Infection Control Outcome: Ongoing (Interventions Implemented as Appropriate) 09/13/20 1180 Safety Interventions Isolation Precautions standard precautions maintained Infection Prevention barrier precautions utilized;environmental surveillance performed;rest/sleep promoted Coping Strategies Supportive Measures active listening utilized;decision-making supported;positive reinforcement provided;self-care encouraged OUTCOME EVALUATION NOTE: OUTCOME SUMMARY: Pt A&O throughout shift; very tired in AM due to lack of sleep. No c/o CP or dyspnea. Pt c/o chronic back pain; sharp bursts of pain; Heating pad utilized; MD accessed; ok w/ using lidocaine patches. Diet order changed. H&H maintained. Ambulated around unit w/ no issues. PT accessed pt; recommended Pt utilize walker as needed. Bedside commode used. IV iron given. See tele and v/s reports PLAN MOVING FORWARD: Continue to monitor; CT 09/14; TAVR 09/17 INDIVIDUALIZED FALL PREVENTION INTERVENTIONS: Patient-specific fall risk factors per assessment: [current deficits]: IV sites, tele cords Assistance [level of assistance required for transfers and ambulation]: SBA Supervision [direct monitoring required during toileting and ADLs]: IND Surveillance [continuous indirect monitoring]: Telemetry, pulse ox, rounding Patient-specific fall prevention interventions for sensory deficits provided, if applicable: [X] Yes CPG GOAL OUTCOME EVALUATION: * Consult Note - Devyn Crum PA - 09/13/2020 1:35 PM EST Cardiac Surgery Consultation Note Shannan Chaudhary is seen at the request of Dr. Chun for the evaluation of symptomatic severe . HPI: Shannan Chaudhary is a 80 y.o. female with prior cardiac history notable for severe , obstructivecoronary artery disease, and paroxysmal A. fib. She presented last March with acute cholecystitis.This led to a prolonged hospital course where she underwent balloon aortic valvuloplasty as well asPCI. Her cholecystitis was initially managed with a PERC tube followed by lap david in June. She was seen in clinic on 09/[address] Rahman where she appeared pale and complained of several weeks of dyspnea on exertion. Her hemoglobin was 5.4,, her aspirin was held and she was admitted for further work-up of her anemia. She was transfused 2 units of blood with an appropriate rise in her hem oglobin which is remained stable since then. GI performed upper endoscopy and colonoscopy revealingonly esophagitis. Repeat echo was performed showing severe and moderate MS. Cardiac surgery is now consulted for evaluation of surgical versus transcatheter intervention of her valvular disease. Her past medical history is otherwise significant for hypertension, hyperlipidemia, insulin-dependentdiabetes, and obesity. She has paroxysmal A. fib and is not on anticoagulation due to history of bleeding. She has no history of TIA or stroke. Review of Systems: ROS otherwise negative Problem List: Patient Active Problem List Diagnosis ??? Anemia, iron deficiency ??? S/P balloon aortic valvuloplasty 06/24/2020 ??? Esophagitis, erosive ??? Obesity (BMI 30.0-34.9) ??? Aortic valve stenosis 04/20/20 TTE SUMMARY: ??1. Mild concentric left ventricular hypertrophy is observed. [...] by low stroke volume index (23 ml/m2). 06/24/2020 Successful BAV: Conclusions: * Severe aortic stenosis * Valvuloplasty was performed * Successful balloon aortic valvuloplasty. Stenotic Valve Data After Valvuloplasty: Aortic Valve Peak Gradient - 19 Mean Gradient - 20 TTE 06/25/2020: SUMMARY: ?? 1. Limited for LV function and aortic valve structural and function. 2. Aortic valve is trileaflet and significantly calcified. There is severe aortic stenosis, with an CORINE by planimetry of 0.92 cm2 (mean gradient 18 mmHg, SVI 29 cc/m2). Trace aortic regurgitation. 3. Left ventricle is normal in size and function, with an EF by biplane of 72% and no wall motion abnormalities. 4. Right ventricle is normal in size and function. PASP of 35 mmHg plus estimated RA pressure. 5. The mitral valve leaflets and its apparatus are calcified. Mean gradient across the valve is 7 mmHg at a HR in the 60s. 6. No pericardial effusion. ??? Aortic stenosis - moderate 04/20/20 TTE SUMMARY:?? 1. Mild concentric left [...] index (23 ml/m2). ??? Atrial fibrillation--- paroxysmal ?? Mar 2020: AF with RVR seen during admission with cholecystitis. ??? 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 04/21/20 Right and Left Heart Cath/ PCI Conclusions: * Two vessel coronary artery disease (LAD and RCA) * Mild pulmonary hypertension * Elevated left ventricular end diastolic pressure * Successful stent insertion of the ostial RCA lesion ??? S/P laparoscopic cholecystectomy 07/15/2020 ??? Type 2 diabetes mellitus with circulatory disorder, with long-term current use of insulin ??? Hypertension ??? Hyperlipidemia ??? Arthritis Past Medical History: Past Medical History: Diagnosis Date ??? Actinic keratosis 08/31/2011 ??? Diabetes ??? Seborrheic keratosis 08/31/2011 ??? Severe aortic stenosis Past Surgical History: Past Surgical History: Procedure Laterality Date ??? CT PERITONEAL DRAINAGE 04/28/2020 CT Guided Drain Peritoneal 04/28/2020 [facility] RAD CAT SCAN ??? HYSTERECTOMY, VAGINAL ??? IR BILIARY TUBE CHECK/CHANGE/REMOVE 06/03/2020 IR Biliary Tube Check/Change/Remove 06/03/2020 Jos Collins, DO [facility] INTERVENTIONL RAD ??? IR CHOLECYSTOSTOMY TUBE PLACEMENT 04/22/2020 IR Cholecystostomy Tube Placement 04/22/2020 Jos Collins, DO [facility] INTERVENTIONL RAD ??? IR DRAIN CHECK/CHANGE/REMOVE 05/19/2020 IR Drain Check/Change/Remove 05/19/2020 Jos Collins, DO [facility] INTERVENTIONL RAD ??? PRO COLONOSCOPY, DIAGNOSTIC N/A 09/12/2020 COLONOSCOPY, DIAGNOSTIC performed by Mane Avila MD at [facility] ENDOSCOPY ??? PRO LAP, CHOLECYSTECTOMY/GRAPH N/A 07/15/2020 LAPAROSCOPIC CHOLECYSTECTOMY WITH CHOLANGIOGRAM (WRVU 11.47) performed by Hong Rosenthal MD at [facility] MAIN OR ??? PRO UPPER GI ENDOSCOPY, BIOPSY N/A 09/12/2020 EGD WITH BIOPSY (WRVU 2.49) performed by Mane Avila MD at [facility] ENDOSCOPY ??? PRO UPPER GI ENDOSCOPY, DIAGNOSTIC N/A 05/03/2020 EGD, UPPER GI ENDOSCOPY performed by Brigitte Graf MD at [facility] ENDOSCOPY Social History: Social History Tobacco Use ??? Smoking status: Never Smoker ??? Smokeless tobacco: Never Used Substance Use Topics ??? Alcohol use: Not Currently Comment: occassional ??? Drug use: Never Social History Social History Narrative ??? Not on file Buddhist - denies Family History: History reviewed. No pertinent family history. Meds Prior to Admission: Medications Prior to Admission Medication Sig Dispense Refill Last Dose ??? lidocaine (XYLOCAINE) 5 % Ointment ??? metoprolol succinate XL (Toprol-XL) 100 mg Tablet Sustained Release 24 hr Take 2 tablets by mouth nightly. 30 tablet 12 ??? rosuvastatin (Crestor) 20 mg Tablet Take [...] by mouth daily. 14 each 0 ??? losartan (Cozaar) 25 mg Tablet Take 1 tablet by mouth daily. 90 tablet 3 ??? pantoprazole EC (Protonix) 40 mg Tablet, Delayed Release (E.C.) Take 1 tablet by mouth 2 times daily. (Patient not taking: Reported on 09/10/2020) 90 tablet 3 ??? VITAMIN D 1,000 unit Capsule take 1 capsule by mouth daily 0 ??? VITAMINS B COMPLEX Tablet take 1 capsule by mouth once daily 0 ??? [DISCONTINUED] fluocinolone acetonide (SYNALAR) 0.01 % Solution Apply twice daily to itchy areas and scalp (Patient not taking: Reported on 09/10/2020) 60 mL 3 ??? [DISCONTINUED] metroNIDAZOLE (METROCREAM) 0.75 % Cream Apply twice daily to face after washing (Patient not taking: Reported on 09/10/2020) 45 g 3 ??? insulin lispro (HUMALOG KWIKPEN) Insulin [...] daily or as needed. 200 each 3 Current Meds: Scheduled Meds: ??? [START ON 09/14/2020] AMIOdarone 200 mg Oral Daily ??? pantoprazole EC 40 mg Oral BID ??? losartan 12.5 mg Oral Daily ??? ferrous gluconate 324 mg Oral BID ??? metoprolol tartrate 25 mg Oral Q6H BASIL ??? clopidogreL 75 mg Oral Daily ??? polyethylene glycoL 17 g Oral Daily ??? rosuvastatin 20 mg Oral QPM ??? insulin lispro 1-6 Units Subcutaneous Q4H BASIL ??? insulin glargine 10 Units Subcutaneous Daily ??? lidocaine 3 patch Transdermal Daily And ??? lidocaine 3 patch Transdermal Q24H Continuous Infusions: PRN Meds:.iohexoL, acetaminophen, hydrALAZINE, bisacodyl EC, potassium chloride ER OR potassiumchloride ER, glucose 40% oral geL OR dextrose 10% OR glucagon (human recombinant) Allergies: No Known Allergies Physical Exam: BP 117/58 (BP Location (NBP): Left arm, Patient Position: Sitting) Pulse 67 Temp 36.8 ??C (98.2??F) (Oral) Resp 16 Ht 157.5 cm (5' 2) Wt 77.2 kg (170 lb 3.1 oz) SpO2 99% BMI 31.13 kg/m?? General: Sitting in chair. NAD. Appears stated age. Neuro: Awake and alert. CN II-XII intact. Moves all extremities with grossly normal strength. Heart: RRR, S1/S2. 3/6 MELYSSA RUSB. Lungs: CTA. no wheezes, crackles, rhonchi. Abdomen: Soft, NT/ND. Normoactive bowel sounds. Extremities: Warm, well perfused, no clubbing, cyanosis, or edema. No varicosities. Diagnostics: Lab Results Component Value Date WBC 6.1 09/13/2020 RBC 4.01 09/13/2020 HGB 9.0 (L) 09/13/2020 HCT 30.2 (L) 09/13/2020 PLATELET 315 09/13/2020 Recent Labs 09/13/20 0539 INR 1.1 Lab Results Component Value Date NA 141 09/13/2020 K 4.2 09/13/2020 CL 108 (H) 09/13/2020 CO2 23 09/13/2020 BUN 12 09/13/2020 CREATININE 0.98 09/13/2020 CXR: chronically elevated right hemidiaphragm EKG: NSR 70 RBBB CATH: 04/21: Conclusions: * Two vessel coronary artery disease (LAD and RCA) * Mild pulmonary hypertension * Elevated left ventricular end diastolic pressure * Successful stent insertion of the ostial RCA lesion * See Dual Antiplatelet (DAPT) Recommendations above. 06/24:Conclusions: * Severe aortic stenosis * Valvuloplasty was performed * Successful balloon aortic valvuloplasty. TTE: SUMMARY: ?? 1. The left ventricular chamber size is normal. Moderate concentric left ventricular hypertrophy is observed. There is normal global left ventricular systolic function with an EF of 65% and no wall motion abnormalities. 2. The right ventricle is normal in size. Right ventricular global systolic function is normal. The estimated pulmonary artery systolic pressure is elevated at 43 mmHg. 3. There is severe aortic valve stenosis. DOI .3, SVI 38.7, CORINE 0.8 cm2. MG 28 mmHg. 4. There is moderate mitral stenosis present. The mean gradient across the mitral valve is 8 mmHg at 83 bpm. The PHT is 80-90 ms. 5. The pericardium appears normal and there is no evidence of a pericardial effusion. Assessment and Plan: 80 y.o. female with severe aortic stenosis. She has a complex past medical history, admitted with acute blood loss anemia of unknown etiology. Her chronologic age and comorbidities placing her at an increased surgical risk, continuing with work-up for TAVR is recommended. -TAVR protocol CTs -Surgical candidacy, timing, and/or further recommendations will be determined by the Attending Surgeon. Dr. Hurtado. Signed: TR Badillo 09/13/2020 * Plan of Care - Sarah Berry RN - 09/13/2020 4:41 AM EST Problem: Patient Care Overview Goal: Plan of Care Review Outcome: Ongoing (Interventions Implemented as Appropriate) 09/13/20 3293 Coping/Psychosocial Plan Of Care Reviewed With patient OUTCOME EVALUATION NOTE: OUTCOME SUMMARY: Pt had an uneventful shift. A&Ox4. No reports of CP or SOB. Back pain reported at 06/05. Heating pad in place, PRN Tylenol and Baclofen given with reported relief. SR on tele - see scanned docs. Pt remained on clear liquid diet. Call aguilar within reach PLAN MOVING FORWARD: Continue to actively monitor. TAVR workup INDIVIDUALIZED FALL PREVENTION INTERVENTIONS: Patient-specific fall risk factors per assessment: [current deficits]: Tele wires, unfamiliar environment Assistance [level of assistance required for transfers and ambulation]: SBA Supervision [direct monitoring required during toileting and ADLs]: Arms reach Surveillance [continuous indirect monitoring]: Tele, purposeful hourly rounding, call aguilar within reach Patient-specific fall prevention interventions for sensory deficits provided, if applicable: Lighting adjusted for specific tasks/activities, non-skid socks, bed in lowest/locked position CPG GOAL OUTCOME EVALUATION: Ongoing Goal: Fall Prevention-Safe Patient Handling 09/12/20191409/13/20 0400 Campos Fall Risk History of Falling 0 -- Secondary Diagnosis 15 -- Ambulatory Aids 0 -- Intravenous Therapy/Heparin/Saline Lock 20 -- Gait/Transferring 0 -- Mental Status 0 -- Score 35 -- OTHER Campos Fall Risk Med -- Restraint Interventions Safety Promotion/Fall Prevention -- safety round/check completed Positioning Body Position independent;up in chair -- Activity Activity Type activity adjusted per tolerance -- Activity Assistance Provided assistance, stand-by -- Assistive Device Utilized none -- Goal: Infection Control 09/12/201914 Safety Interventions Isolation Precautions standard precautions maintained Infection Prevention environmental surveillance performed;equipment surfaces disinfected;personal protective equipment utilized;rest/sleep promoted Coping Strategies Supportive Measures active listening utilized;self-care encouraged * Op Note - Mane Avila MD - 09/12/2020 10:40 PM EST [facility] [place] Operative Note Patient Name: Shannan Chaudhary : [id number] MR#: [id number] Case Date: 09/12/2020 Surgeon: Surgeon(s) and Role: * Mane Avila MD - Primary * Asha Powell MD - Fellow Preoperative diagnosis: upper endo/colo Postoperative diagnosis: * No post-op diagnosis entered * Procedure(s): EGD WITH BIOPSY (WRVU 2.49) COLONOSCOPY, DIAGNOSTIC Please see Provation report for details. * Plan of Care - Sarah Berry RN - 09/12/2020 4:33 AM EST Problem: Patient Care Overview Goal: Plan of Care Review Outcome: Ongoing (Interventions Implemented as Appropriate) 09/12/20 0431 Coping/Psychosocial Plan Of Care Reviewed With patient OUTCOME EVALUATION NOTE: OUTCOME SUMMARY: Pt had an uneventful shift. A&Ox4. No reports of CP or SOB. Pt reported back pain 5/10 relievedwith Tylenol and heat pack.SR on tele - see scanned docs. Bowel prep given overnight. Call aguilar within reach PLAN MOVING FORWARD: Continue to actively monitor. Endoscopy INDIVIDUALIZED FALL PREVENTION INTERVENTIONS: Patient-specific fall risk factors per assessment: [current deficits]: Tele wires, unfamiliar environment Assistance [level of assistance required for transfers and ambulation]: Independent Supervision [direct monitoring required during toileting and ADLs]: Eyes on Surveillance [continuous indirect monitoring]: Tele, purposeful hourly rounding, call aguilar within reach Patient-specific fall prevention interventions for sensory deficits provided, if applicable: Lighting adjusted for specific tasks/activities, non-skid socks, bed in lowest/locked position CPG GOAL OUTCOME EVALUATION: Ongoing Goal: Fall Prevention-Safe Patient Handling 09/11/20194409/12/20 0200 Campos Fall Risk History of Falling 0 -- Secondary Diagnosis 15 -- Ambulatory Aids 0 -- Intravenous Therapy/Heparin/Saline Lock 20 -- Gait/Transferring 0 -- Mental Status 0 -- Score 35 -- OTHER Campos Fall Risk Med -- Restraint Interventions Safety Promotion/Fall Prevention -- safety round/check completed Positioning Body Position independent -- Activity Activity Type activity adjusted per tolerance -- Activity Assistance Provided assistance, stand-by -- Assistive Device Utilized none -- Goal: Infection Control 09/11/201944 Safety Interventions Isolation Precautions standard precautions maintained Infection Prevention environmental surveillance performed;equipment surfaces disinfected;rest/sleeppromoted;personal protective equipment utilized Coping Strategies Supportive Measures active listening utilized;self-care encouraged * Plan of Care - Cristhian Kerr RN - 09/11/2020 3:00 PM EST Problem: Patient Care Overview Goal: Infection Control Outcome: Ongoing (Interventions Implemented as Appropriate) 09/11/20 0805 Safety Interventions Isolation Precautions standard precautions maintained Infection Prevention environmental surveillance performed;rest/sleep promoted Coping Strategies Supportive Measures active listening utilized;decision-making supported;positive reinforcement provided;self-care encouraged OUTCOME EVALUATION NOTE: OUTCOME SUMMARY: Pt A&O throughout shift, no c/o CP or dyspnea. Pt c/o chronic back pain; heating pad utilized w/ relief. Pt attempted to go for CT; rescheduled for Sunday. Bowel regimen to begin @ 1800. Mg replaced; K replaced. See tele and v/s reports PLAN MOVING FORWARD: NPO for endo-colo INDIVIDUALIZED FALL PREVENTION INTERVENTIONS: Patient-specific fall risk factors per assessment: [current deficits]: IV sites, tele cords Assistance [level of assistance required for transfers and ambulation]: SBA Supervision [direct monitoring required during toileting and ADLs]: Arms reach, callbell within reach, nonskid socks, rounding Surveillance [continuous indirect monitoring]: Telemetry, pulse ox Patient-specific fall prevention interventions for sensory deficits provided, if applicable: [X] Yes CPG GOAL OUTCOME EVALUATION: * Initial Assessments - Damaris Avila RN - 09/11/2020 11:37 AM EST Office of Care Management Initial Assessment Exchange Operator DAMARIS AVILA RN reviewed record and discussed patient with Care Team. Source of Information: eDH, direct care RN, pt interview Introduced self/reviewed role; services accepted. Reason for Hospitalization: Reason for Admission as Stated by Patient: anemia Last COVID test : 09/10/20 @2144 NOT detected Past Medical History: Diagnosis Date ??? Actinic keratosis 08/31/2011 ??? Diabetes ??? Seborrheic keratosis 08/31/2011 ??? Severe aortic stenosis Hospitalizations Within the Past 30 Days: no Anticipated Length Of Stay (If known): Expected Length of Hospitalization: 3 Current Decision-Making Capacity: intact Advance Care Planning: No. Discussed with patient importance and process for doing Advance Directives. Provided copy(ies) of [place] [employer] [facility] Advance Directives Taking Steps booklet with forms. Current Coping/Education/Information Needs: Getting info she says; Current Functional Ability: Stand by assist/ no device Functional Status Prior to Admission: Independent w ADLs, daughter and a granddaughter would assistw managing house. No assistive device Home Environment: Alone in apt single level, w/c accessible from when her mother was w her Social & Family Supports/Community Resources: All 3 adult children supportive(2 in [place], 1 in [place])as well as adult grandchildren Behavioral Health History: none noted Substance Use/Abuse: Per H+P never smoked and not using ETOH, no use of illicits Other Pertinent/Service Specific Information: none Health/Prescription Coverage: Primary Insurance: [employer] [place] Secondary Insurance: MEDICARE Prescription Coverage: [employer] w BCBS or ? Medicare D Preferred Pharmacy: not addressed Other: food and housing secure Primary Care Provider: Reshma Baig MD [phone] Patient/Caregiver Goals of Treatment: feel better, figure this out Potential Needs for Transition of Care: Rehab/SNF: NA Home Health: will discuss; agencies serving her town are [facility]; not anticipated DME: none Dialysis: NA Community Resources: no Transportation:family Other: none Anticipated Barriers to Discharge/Special Considerations: none Assessment: Pt is fully insured, identifies support available in home PRN, COVID is negative. She is in need of [place] DPOAH. Appears to understand why in hospital and the treatment options. Would anticipate home with ? RN ? PT services w support of daughter on d/c. May have TAVR before d/c. Plan: A member of the Care Management team will continue to monitor progress, follow for continuity of care and assist with transition of care planning. Exchange Operator DAMARIS AVILA RN Pager: [phone] * Consult Note - Mane Avila MD - 09/11/2020 10:34 AM EST GASTROENTEROLOGY & HEPATOLOGY CONSULTATION Initial Consult Note Requesting Provider: Abiodun Chun MD REASON FOR CONSULTATION: Fe deficiency anemia HISTORY OF PRESENT ILLNESS Shannan Chaudhary is a 80 y.o. year old woman with hx of extensive cardiac disease with severe s/p balloon aortic valvuloplasty 06/24/20, hx of cholecystitis s/p CCY 07/15/20, CAD s/p PCI 04/2020 on ASA/plavix, PAF (AC on hold), hx of erosive esophagitis 04/2020 and hx of RENETTA admitted from cardiology clinic for evaluation of anemia and severe after Hgb was found to be 5.4. She reports severalmonths of PAUL and fatigue Hgb improved this morning to 8.4 after receiving 2 units of PRBC. Recent baseline Hgb appears to bein the 8-10 range. She denies any overt signs of GI bleeding with no bloody or black stools. She recently has been constipated at home, which is a new issue for her. She has no vaginal bleeding (s/p h ysterectomy decades ago). No hx of abdominal pain. Reports some difficulty swallowing large pills and some occasional heartburn. Takes her omeprazole at home. She has had two prior colonoscopies, butthe last one was many years ago. Her father had colorectal cancer. Her ASA has been held on admission and she is continuing on plavix. The cardiology team is planningon inpatient TAVR work up. ROS: 10 systems reviewed and positive for those in HPI, otherwise negative PAST MEDICAL/SURGICAL HISTORY: Past Medical History: Diagnosis Date ??? Actinic keratosis 08/31/2011 ??? Diabetes ??? Seborrheic keratosis 08/31/2011 ??? Severe aortic stenosis MEDICATIONS ??? AMIOdarone 200 mg Oral BID ??? clopidogreL 75 mg Oral Daily ??? polyethylene glycoL 17 g Oral Daily ??? rosuvastatin 20 mg Oral QPM ??? insulin lispro 1-6 Units Subcutaneous Q4H BASIL ??? insulin glargine 10 Units Subcutaneous Daily ??? lidocaine 3 patch Transdermal Daily And ??? lidocaine 3 patch Transdermal Q24H ??? metoprolol tartrate 50 mg Oral Q6H BASIL ??? [START ON 09/12/2020] losartan 25 mg Oral Daily ??? bisacodyl EC 20 mg Oral Once Followed by ??? polyethylene glycoL (MIRALAX) oral powder 238 g Oral Once ??? pantoprazole 40 mg Intravenous BID hydrALAZINE, bisacodyl EC, potassium chloride ER OR potassium chloride ER, glucose 40% oral geLOR dextrose 10% OR glucagon (human recombinant) ALLERGIES No Known Allergies SOCIAL HISTORY Social History Socioeconomic History ??? Marital status: Spouse name: Not on file ??? Number of children: Not on file ??? Years of education: Not on file ??? Highest education level: Not on file Occupational History ??? Not on file Social Needs ??? Financial resource strain: Not on file ??? Food insecurity Worry: Not on file Inability: Not on file ??? Transportation needs Medical: Not on file Non-medical: Not on file Tobacco Use ??? Smoking status: Never Smoker ??? Smokeless tobacco: Never Used Substance and Sexual Activity ??? Alcohol use: Not Currently Comment: occassional ??? Drug use: Never ??? Sexual activity: Not Currently Lifestyle ??? Physical activity Days per week: Not on file Minutes per session: Not on file ??? Stress: Not on file Relationships ??? Social connections Talks on phone: Not on file Gets together: Not on file Attends judaism service: Not on file Active member of club or organization: Not on file Attends meetings of clubs or organizations: Not on file Relationship status: Not on file ??? Intimate partner violence Fear of current or ex partner: Not on file Emotionally abused: Not on file Physically abused: Not on file Forced sexual activity: Not on file Other Topics Concern ??? Not on file Social History Narrative ??? Not on file FAMILY HISTORY History reviewed. No pertinent family history. Vitals: 09/11/20 0140 09/11/20 0400 09/11/20 0805 09/11/20 1123 BP: 162/55 187/59 120/42 143/40 BP Location (NBP): Left arm Left arm Left arm Patient Position: Lying Lying Sitting Pulse: 64 67 59 58 Resp: 18 14 17 Temp: 36.8 ??C (98.2 ??F) 36.6 ??C (97.9 ??F) TempSrc: Oral Oral SpO2: 99% 97% 94% 97% Weight: Height: PHYSICAL EXAM GENERAL: No acute distress, alert and oriented, well appearing HEENT: AT/NC, sclerae anicteric, moist mucous membranes ABDOMEN: Soft, normoactive bowel sounds, non-tender, non-distended SKIN: No jaundice. LABS: Lab Results Component Value Date Sodium 140 09/11/2020 Potassium 3.2 (L) 09/11/2020 Chloride 101 09/11/2020 CO2 27 09/11/2020 BUN 13 09/11/2020 Creatinine 0.90 09/11/2020 CBC Lab Results Component Value Date WBC 7.7 09/11/2020 Hemoglobin 8.4 (L) 09/11/2020 Hematocrit 27.2 (L) 09/11/2020 Platelets 290 09/11/2020 LFT's Lab Results Component Value Date Alk Phos 123 (H) 09/11/2020 AST 16 09/11/2020 Albumin 4.4 09/11/2020 Bili, Direct 0.2 09/11/2020 Total Bilirubin 2.6 (H) 09/11/2020 ALT 16 09/11/2020 Total Protein 6.8 09/11/2020 TTE 06/25/2020: SUMMARY: ?? 1. Limited for LV function and aortic valve structural and function. 2. Aortic valve is trileaflet and significantly calcified. ??There is severe aortic stenosis, with an CORINE by planimetry of 0.92 cm2 (mean gradient 18 mmHg, SVI 29 cc/m2). ??Trace aortic regurgitation. 3. Left ventricle is normal in size and function, with an EF by biplane of 72% and no wall motion abnormalities. 4. Right ventricle is normal in size and function. ??PASP of 35 mmHg plus estimated RA pressure. 5. The mitral valve leaflets and its apparatus are calcified. ??Mean gradient across the valve is 7 mmHg at a HR in the 60s. 6. No pericardial effusion. ENDOSCOPY: EGD Impression: - Z-line regular, 36 cm from the ?incisors. ? - LA Grade D reflux esophagitis. ?Likely cause of melena. ?- A small amount of food (residue) in ?the stomach. ?- Normal examined duodenum. ?- No specimens collected. IMPRESSION: Shannan Chaudhary is a 80 y.o. year old woman with hx of extensive cardiac disease with severe s/p balloon aortic valvuloplasty 06/24/20, hx of cholecystitis s/p CCY 07/15/20, CAD s/p PCI 04/2020 on ASA/plavix, PAF on AC and hx of RENETTA admitted from cardiology clinic for evaluation of anemia and severe . Hgb has appropriately responded to blood transfusion. She denies any overt signs of bleeding. Recent EGD for melena in 04/2020 with severe esophagitis. She says she has been taking her omprazole at home. No colonoscopy in many years and known hx of CRC. She agreed with inpatient EGD/colonoscopy for further evaluation of GI bleeding. RECOMMENDATIONS: - Plan for EGD/colonoscopy tomorrow unless there are plans from primary service for further cardiacwork up that would preclude endoscopy tomorrow - Ok for light lunch today - After lunch, clear liquids only and then NPO at [place] - Colonoscopy prep with 238 g miralax mixed into 64 oz of gatorade - Active T&S, maintain 2 large bore IVs - Trend H/H, maintain Hgb >8 - Continue PPI BID The plan as outlined above was discussed with Dr. Avila. The recommendations were discussed with the primary team. Asha Powell MD Gastroenterology PGY-6 09/11/2020 11:34 AM Pager #[phone] I have seen and evaluated the patient with Dr. Powell. I have reviewed the fellow's history during the encounter and I agree with the details as written above. My physical examination confirms the above findings. The assessment and plan were formulated in discussion with me at the time of the encounter and I agree with them as documented. Mane Avila MD, MS dispatcher automobile [employer], Gastroenterology and Hepatology * Plan of Care - Sarah Berry RN - 09/11/2020 2:41 AM EST Problem: Patient Care Overview Goal: Plan of Care Review Outcome: Ongoing (Interventions Implemented as Appropriate) 09/11/20 0239 Coping/Psychosocial Plan Of Care Reviewed With patient OUTCOME EVALUATION NOTE: OUTCOME SUMMARY: Pt admitted from the ED tonight with Hgb 5.2. A&Ox4. No reports of CP or SOB. Denies pain. SR on tele - see scanned docs. 2 units packed RBC given. Call aguilar within reach PLAN MOVING FORWARD: Continue to actively monitor. TAVR workup INDIVIDUALIZED FALL PREVENTION INTERVENTIONS: Patient-specific fall risk factors per assessment: [current deficits]: Tele wires, unfamiliar environment Assistance [level of assistance required for transfers and ambulation]: SBA Supervision [direct monitoring required during toileting and ADLs]: Arms reach Surveillance [continuous indirect monitoring]: Tele, purposeful hourly rounding, call aguilar within reach Patient-specific fall prevention interventions for sensory deficits provided, if applicable: Lighting adjusted for specific tasks/activities, non-skid socks, bed in lowest/locked position CPG GOAL OUTCOME EVALUATION: Ongoing * ED Triage - Bonita Orozco RN - 09/10/2020 4:37 PM EST Said she was anemic and needed to go to the ED. documented in this encounter Plan of Treatment Scheduled Orders Name Type Priority Associated Diagnoses Orde r Schedule @TRANSCATHETER AORTIC VALVE REPLACEMENT (TAVR), PERCUTANEOUS FEMORAL Procedures Routine Aortic stenosis, severe One Time for 1 Occurrences starting 09/15/2020 until 09/15/2020 Scheduled Referrals Name Type Priority Associated Diagnoses Orde r Schedule Referral to Cardiac Rehab Outpatient Referral Routine S/P TAVR (transcatheter aortic valve replacement) Ordered: 09/18/2020 documented as of this encounter Procedures Procedure Name Priority Date/Time Associated Diagnosis Comments POCT GLUCOSE Routine 09/18/2020 12:21 PM EST POCT GLUCOSE Routine 09/18/2020 7:49 AM EST HC VENIPUNCTURE Routine 09/18/2020 5:35 AM EST POCT GLUCOSE Routine 09/18/2020 4:00 AM EST POCT GLUCOSE Routine 09/18/2020 12:55 AM EST POCT GLUCOSE Routine 09/17/2020 7:42 PM EST POCT GLUCOSE Routine 09/17/2020 4:17 PM EST POCT GLUCOSE Routine 09/17/2020 3:00 PM EST POCT GLUCOSE Routine 09/17/2020 11:28 AM EST EKG 12-LEAD STAT 09/17/2020 9:03 AM EST Aortic stenosis, severe POCT GLUCOSE Routine 09/17/2020 7:39 AM EST HEMOGRAM Routine 09/17/2020 5:29 AM EST DIFFERENTIAL, AUTOMATED Routine 09/17/2020 5:29 AM EST HC CBC,PLT & AUTO DIFF Routine 5:29 AM EST HC TROPONIN T Routine 09/17/2020 5:29 AM EST BASIC METABOLIC PANEL (NON-FASTING) Routine 09/17/2020 5:29 AM EST POCT GLUCOSE Routine 09/17/2020 3:28 AM EST POCT GLUCOSE Routine 09/17/2020 12:02 AM EST POCT GLUCOSE Routine 09/16/2020 8:47 PM EST POCT GLUCOSE Routine 09/16/2020 4:00 PM EST POCT GLUCOSE Routine 09/16/2020 2:11 PM EST XR CHEST PA AND LATERAL Routine 09/16/2020 1:57 PM EST POCT GLUCOSE Routine 09/16/2020 11:51 AM EST EKG 12-LEAD STAT 09/16/2020 8:57 AM EST S/P TAVR (transcatheter aortic valve replacement) POCT GLUCOSE Routine 09/16/2020 8:20 AM EST EKG 12-LEAD Routine 09/16/2020 5:52 AM EST S/P TAVR (transcatheter aortic valve replacement) POCT GLUCOSE Routine 09/16/2020 4:07 AM EST BMP W/FASTING GLUCOSE Routine 09/16/2020 2:20 AM EST HEMOGRAM Routine 09/16/2020 2:20 AM EST DIFFERENTIAL, AUTOMATED Routine 09/16/2020 2:20 AM EST HC PARTIAL THROMBOPLASTIN TIME Routine 09/16/2020 2:20 AM EST HC PROTHROMBIN TIME Routine 09/16/2020 2 :20 AM EST HC CBC,PLT & AUTO DIFF Routine 2:20 AM EST HC MAGNESIUM, SERUM Routine 09/16/2020 2 :20 AM EST POCT GLUCOSE Routine 09/15/2020 11:15 PM EST POCT GLUCOSE Routine 09/15/2020 7:59 PM EST HC HEMOGRAM STAT 09/15/2020 3:40 PM EST POCT GLUCOSE Routine 09/15/2020 3:28 PM EST ECHO COMPLETE Routine 09/15/2020 3:24 PM EST Aortic stenosis, severe EKG 12-LEAD Routine 09/15/2020 3:18 PM EST Aortic valve stenosis, etiology of cardiac valve disease unspecified Paroxysmal atrial fibrillation 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 Iron deficiency anemia, unspecified iron deficiency anemia type CARDIAC CATHETERIZATION Routine 09/15/2020 3:15 PM EST Aortic stenosis, severe POINT OF CARE BLOOD GAS HISTORICAL Routine 09/15/2020 2:40 PM EST PREPARE RBC STAT 09/15/2020 2:35 PM EST POINT OF CARE BLOOD GAS HISTORICAL Routine 09/15/2020 1:51 PM EST POCT GLUCOSE Routine 09/15/2020 1:50 PM EST POCT GLUCOSE Routine 09/15/2020 11:40 AM EST ABORH RECHECK STATUS Routine 09/15/2020 10:09 AM EST ABO/RH TYPING Routine 09/15/2020 10:09 AM EST ANTIBODY SCREEN Routine 09/15/2020 10:09 AM EST HC VENIPUNCTURE Routine 09/15/2020 10:09 AM EST POCT GLUCOSE Routine 09/15/2020 8:01 AM EST BMP W/FASTING GLUCOSE Routine 09/15/2020 4:45 AM EST HEMOGRAM Routine 09/15/2020 4:45 AM EST DIFFERENTIAL, AUTOMATED Routine 09/15/2020 4:45 AM EST HC PARTIAL THROMBOPLASTIN TIME Routine 09/15/2020 4:45 AM EST HC PROTHROMBIN TIME Routine 09/15/2020 4 :45 AM EST HC CBC,PLT & AUTO DIFF Routine 4:45 AM EST HC MAGNESIUM, SERUM Routine 09/15/2020 4 :45 AM EST POCT GLUCOSE Routine 09/15/2020 4:27 AM EST POCT GLUCOSE Routine 09/15/2020 12:07 AM EST POCT GLUCOSE Routine 09/14/2020 8:27 PM EST POCT GLUCOSE Routine 09/14/2020 5:13 PM EST POCT GLUCOSE Routine 09/14/2020 12:[address] HEART FOR FUNCTION (NON-CORONARY) W CONTRAST Routine 09/14/2020 11:43 AM EST Aortic valve stenosis, etiology of cardiac valve disease unspecified CT ANGIOGRAM ABDOMEN AND PELVIS W CONTRAST Routine 09/14/2020 11:43 AM EST POCT GLUCOSE Routine 09/14/2020 7:38 AM EST BMP W/FASTING GLUCOSE Routine 09/14/2020 3:51 AM EST SCAN, PERIPHERAL BLOOD Routine 3:51 AM EST HEMOGRAM Routine 09/14/2020 3:51 AM EST DIFFERENTIAL, AUTOMATED Routine 09/14/2020 3:51 AM EST HC PARTIAL THROMBOPLASTIN TIME Routine 09/14/2020 3:51 AM EST HC VENIPUNCTURE Routine 09/14/2020 3:51 AM EST HC CBC,PLT & AUTO DIFF Routine 3:51 AM EST HC MAGNESIUM, SERUM Routine 09/14/2020 3 :51 AM EST HEPATIC FUNCTION PANEL Routine 3:51 AM EST POCT GLUCOSE Routine 09/14/2020 3:18 AM EST POCT GLUCOSE Routine 09/13/2020 11:31 PM EST ABORH RECHECK STATUS Routine 09/13/2020 10:50 PM EST HC HEMOGLOBIN, BLOOD Routine 09/13/2020 10:50 PM EST ABO/RH TYPING Routine 09/13/2020 10:50 PM EST ANTIBODY SCREEN Routine 09/13/2020 10:50 PM EST HC VENIPUNCTURE Routine 09/13/2020 10:50 PM EST POCT GLUCOSE Routine 09/13/2020 8:00 PM EST POCT GLUCOSE Routine 09/13/2020 4:43 PM EST POCT GLUCOSE Routine 09/13/2020 11:37 AM EST HC VENIPUNCTURE Routine 09/13/2020 11:25 AM EST HC POTASSIUM Routine 09/13/2020 11:25 AM EST POCT GLUCOSE Routine 09/13/2020 7:16 AM EST PERIPHERAL SMEAR REVIEW Routine 09/13/2020 5:39 AM EST SMEAR REVIEW REPORT Routine 09/13/2020 5 :39 AM EST BMP W/FASTING GLUCOSE Routine 09/13/2020 5:39 AM EST SCAN, PERIPHERAL BLOOD Routine 5:39 AM EST HEMOGRAM Routine 09/13/2020 5:39 AM EST DIFFERENTIAL, AUTOMATED Routine 09/13/2020 5:39 AM EST HC PARTIAL THROMBOPLASTIN TIME Routine 09/13/2020 5:39 AM EST HC PROTHROMBIN TIME Routine 09/13/2020 5 :39 AM EST HC CBC,PLT & AUTO DIFF Routine 5:39 AM EST HC MAGNESIUM, SERUM Routine 09/13/2020 5 :39 AM EST HEPATIC FUNCTION PANEL Routine 5:39 AM EST POCT GLUCOSE Routine 09/13/2020 4:02 AM EST POCT GLUCOSE Routine 09/12/2020 11:46 PM EST HC HEMOGLOBIN, BLOOD Routine 09/12/2020 10:17 PM EST HC VENIPUNCTURE Timed 09/12/2020 10:17 PM EST POCT GLUCOSE Routine 09/12/2020 7:53 PM EST HC HEMOGLOBIN, BLOOD Routine 09/12/2020 7:12 PM EST POCT GLUCOSE Routine 09/12/2020 3:55 PM EST SPECIMEN TO PATHOLOGY Routine 09/12/2020 2:45 PM EST SURGICAL PATHOLOGY REPORT Routine 09/12/2020 2:04 PM EST Colonoscopy, Diagnostic ([id number]) 09/12/2020 1:32 PM EST upper endo/colo Upper Gi Endoscopy, Biopsy ([id number]) 09/12/2020 1:32 PM EST upper endo/colo HC VENIPUNCTURE Routine 09/12/2020 1:11 PM EST HC POTASSIUM Routine 09/12/2020 1:11 PM EST UPPER GI ENDOSCOPY Routine 09/12/2020 12 :57 PM EST COLONOSCOPY Routine 09/12/2020 12:56 PM EST POCT GLUCOSE Routine 09/12/2020 11:55 AM EST POCT GLUCOSE Routine 09/12/2020 8:06 AM EST HC HEMOGLOBIN, BLOOD Routine 09/12/2020 7:47 AM EST POCT GLUCOSE Routine 09/12/2020 4:38 AM EST BMP W/FASTING GLUCOSE Routine 09/12/2020 1:43 AM EST HEMOGRAM Routine 09/12/2020 1:43 AM EST DIFFERENTIAL, AUTOMATED Routine 09/12/2020 1:43 AM EST HC PARTIAL THROMBOPLASTIN TIME Routine 09/12/2020 1:43 AM EST HC VENIPUNCTURE Routine 09/12/2020 1:43 AM EST HC CBC,PLT & AUTO DIFF Routine 1:43 AM EST HC MAGNESIUM, SERUM Routine 09/12/2020 1 :43 AM EST HEPATIC FUNCTION PANEL Routine 1:43 AM EST POCT GLUCOSE Routine 09/11/2020 11:48 PM EST POCT GLUCOSE Routine 09/11/2020 8:19 PM EST POCT GLUCOSE Routine 09/11/2020 7:40 PM EST HC HEMOGLOBIN, BLOOD Routine 09/11/2020 6:22 PM EST POCT GLUCOSE Routine 09/11/2020 5:17 PM EST POCT GLUCOSE Routine 09/11/2020 12:16 PM EST HC IRON BINDING CAPACITY Routine 09/11/2020 11:47 AM EST HC HEMOGLOBIN, BLOOD Routine 09/11/2020 11:47 AM EST POTASSIUM Routine 09/11/2020 11:47 AM EST HC FERRITIN, SERUM Routine 09/11/2020 11 :47 AM EST PERIPHERAL SMEAR REVIEW Routine 09/11/2020 5:36 AM EST BMP W/FASTING GLUCOSE Routine 09/11/2020 5:36 AM EST SCAN, PERIPHERAL BLOOD Routine 5:36 AM EST HEMOGRAM Routine 09/11/2020 5:36 AM EST DIFFERENTIAL, AUTOMATED Routine 09/11/2020 5:36 AM EST HC PARTIAL THROMBOPLASTIN TIME Routine 09/11/2020 5:36 AM EST HC PROTHROMBIN TIME Routine 09/11/2020 5 :36 AM EST HC CBC,PLT & AUTO DIFF Routine 5:36 AM EST HC MAGNESIUM, SERUM Routine 09/11/2020 5 :36 AM EST HC HEMOGLOBIN A1C Routine 09/11/2020 5:3 6 AM EST HEPATIC FUNCTION PANEL Routine 5:36 AM EST SMEAR REVIEW REPORT Routine 09/11/2020 5 :30 AM EST POCT GLUCOSE Routine 09/11/2020 5:07 AM EST POCT GLUCOSE Routine 09/10/2020 10:45 PM EST PREPARE RBC Routine 09/10/2020 10:40 PM EST RAPID COVID-19 PCR ([facility]) STAT 09/10/2020 9:44 PM EST PREPARE RBC STAT 09/10/2020 7:40 PM EST HEMOGRAM STAT 09/10/2020 7:25 PM EST DIFFERENTIAL, AUTOMATED STAT 09/10/2020 7:25 PM EST HC PARTIAL THROMBOPLASTIN TIME STAT 09/10/2020 7:25 PM EST HC PROTHROMBIN TIME STAT 09/10/2020 7 :25 PM EST HC CBC,PLT & AUTO DIFF STAT 7:25 PM EST ABORH RECHECK STATUS STAT 09/10/2020 6:15 PM EST ABO/RH TYPING STAT 09/10/2020 6:15 PM EST ANTIBODY SCREEN STAT 09/10/2020 6:15 PM EST HC ANTIBODY DETECTION,CAPTURE-R STAT 09/10/2020 6:15 PM EST LAB SCAN 09/10/2020 12:00 AM EST documented in this encounter Results * EKG 12 Lead (10/18/2020 2:18 PM EST) Ventricular rate 68 BPM MUSE SYSTEM Atrial Rate 68 BPM MUSE SYSTEM P-R Interval 162 ms MUSE SYSTEM QRS Duration 134 ms MUSE SYSTEM Q-T Interval 490 ms MUSE SYSTEM QTC Calculated (Bezet) 521 ms MUSE SYSTEM Calculated P [place] 23 degrees MUSE SYSTEM Calculated R [place] -33 degrees MUSE SYSTEM Calculated T [place] 11 degrees MUSE SYSTEM INTERPRETATION Normal sinus rhythm Left axis deviation Right bundle branch block Abnormal ECG When compared with ECG of 17-SEP-2020 09:03, T wave inversion no longer evident in Anterior leads Confirmed by MD HUI, SABI ([id number]) on 10/18/2020 3:39:45 PM MUSE SYSTEM 10/18/2020 2:18 PM EST 10/18/2020 3:39 PM EST Pan Hurtado MD ECG ORDERABLES MUSE SYSTEM * ECHO COMPLETE (10/18/2020 1:51 PM EST) EF 65 HEARTLAB SYSTEM Anatomical Region Laterality Modality Other 10/18/2020 Narrative 10/18/2020 2:36 PM EST Amended Report Procedure: ?Transthoracic Echocardiogram Patient: ?HEIDY SHANNAN A ? (Age): 1940(80y) Med Rec#: ? [id number] ?Sex: ?F ? Site Loc: ? [facility] ?Ht / Wt: ??158(cm)/79(kg) Pt. Loc: ?Echo Lab ?BSA: ?1.81 Study Date: ?? 10/18/2020 ?Pt. Type: Outpatient Tape: ? Referring: Pan Hurtado Reading: Fang Law ([id number]) Residential Direct Support Professional: Wilfredo Santiago RDCS Diagnosis: *Presence of prosthetic [...] present.It is known to be a Bobo Jemma 3 Ultra TAVR valve. ?The bio-prosthetic aortic [...] Vmax ?1.19 ? m/sec ? MV deceleration [id number] ? msec ? MV A-wave Vmax ?1.68 [...] ? Mid-Inferior ?Normal ? Mid-Inferoseptal ?Normal ? Stanton-Septal ? Normal ? Stanton-Anterior ? Normal ? Stanton-Lateral ?Normal ? Stanton-Inferior ? Normal ? Stanton-Tip ?Normal ? This report has been electronically signed by: Fang Law MD ? 10/18/2020 14:41:12 Images reviewed and interpretation verified [facility] Cardiac Ultrasound [facility] Procedure Note Fang Law MD - 10/18/2020 Amended Report Procedure: Transthoracic Echocardiogram Patient: HEIDY ANDERSON(Age): 1940(80y) Med Rec#: [id number] Sex: F Site Loc: [facility] [place] Ht / Wt: 158(cm)/79(kg) Pt. Loc: Echo Lab BSA: 1.81 Study Date: 10/18/2020 Pt. Type: Outpatient Tape: Referring: Pan Hurtado Reading: Fang Law ([id number]) Residential Direct Support Professional: Wilfredo Santiago RDCS Diagnosis: *Presence of prosthetic [...] present.It is known to be a Bobo Jemma 3 Ultra TAVR valve. The bio-prosthetic aortic [...] MV E-wave Vmax 1.19 m/sec MV deceleration [id number] msec MV A-wave Vmax 1.68 m/sec MV [...] Normal Mid-Posterolateral Normal Mid-Inferior Normal Mid-Inferoseptal Normal Stanton-Septal Normal Stanton-Anterior Normal Stanton-Lateral Normal Stanton-Inferior Normal Stanton-Tip Normal This report has been electronically signed by: Fang Law MD 10/18/2020 14:41:12 Images reviewed and interpretation verified [facility] Cardiac Ultrasound Laboratory Pan Hurtado MD ECHO ORDERABLES * (ABNORMAL) Comprehensive metabolic panel (non-fasting) (10/18/2020 11:52 AM EST) Glucose Lvl 302(H) 65 - 199 mg/dL [facility] Comment:Diabetes: >=200 mg/d L plus symptoms BUN 18 8 - 18 mg/dL [facility] Creatinine 0.92 0.70 - 1.20 mg/dL [facility] Sodium 139 135 - 145 mmol/L [facility] Potassium 4.5 3.5 - 5.0 mmol/L [facility] Comment: Please note: ??Patients with WBC >100,000 may have falsely elevated Potassium levels. ??For accurate Potassium quantification in these patients send serum separator tube (gold top) for subsequent determinations. ??Contact the Clinical Chemistry Laboratory if there are any questions. Chloride 104 98 - 107 mmol/L [facility] CO2 23 22 - 31 mmol/L [facility] Anion Gap 12 5 - 15 mmol/L [facility] Calcium 9.3 8.5 - 10.5 mg/dL [facility] Total Protein 6.9 6.1 - 8.0 gm/dL [facility] Albumin 4.5 3.2 - 5.2 gm/dL [facility] AST 36(H) 0 - 30 unit/L [facility] ALT 44(H) 0 - 30 unit/L [facility] Alk Phos 125(H) 35 - 105 unit/L [facility] Total Bilirubin 0.7 0.2 - 1.3 mg/dL [facility] Estimated GFR 59(L) >=60 mL/min/1. 73 m?? [facility] Comment: This patient? s estimated [...] Lab Pan Hurtado MD CHEMISTRY ORDERABL ES Performing Organization Address [facility] [place]/[facility]/ZIP Co de Phone Number [facility] [place] [place] [address] * (ABNORMAL) POCT Glucose (09/18/2020 12:21 PM EST) POC Glucose 235(H) 65 - 199 mg/dL [facility] Comment: Supplemental ranges: <140 mg/dL before meals <180 mg/dL all other times of the day Blood specimen (specimen) 09/18/2020 12:21 PM EST 09/18/2020 12:21 PM EST Pan Hurtado MD POINT OF CARE TEST ORDERABLES Performing Organization Address City/[facility]/ZIP Co de Phone Number [facility] [place] [address] * (ABNORMAL) POCT Glucose (09/18/2020 7:49 AM EST) POC Glucose 207(H) 65 - 199 mg/dL [facility] Comment: Supplemental ranges: <140 mg/dL before meals <180 mg/dL all other times of the day Blood specimen (specimen) 09/18/2020 7:49 AM EST 09/18/2020 7:49 AM EST Pan Hurtado MD POINT OF CARE TEST ORDERABLES Performing Organization Address City/[facility]/[place] [address] * (ABNORMAL) Hemogram (09/18/2020 5:35 AM EST) WBC 7.1 4.0 - 9.5 x10(3)/[facility] RBC 3.47(L) 4.00 - 5.21 x10(6)/[facility] Hemoglobin 8.2(L) 11.7 - 15.5 gm/dL [facility] Hematocrit 27.2(L) 35.7 - 45.8 % [facility] MCV 78.4(L) 82.6 - 94.4 fL [facility] MCH 23.6(L) 27.1 - 32.0 pg [facility] MCHC 30.1(L) 31.7 - 35.0 gm/dL [facility] Platelets 152 145 - 357 x10(3)/[facility] RDWSD 71.8(H) 37.0 - 46.0 [facility] RDWCV 26.5(H) 11.5 - 14.1 % [facility] MPV 10.7 7.6 - 12.9 [facility] nRBC % Auto 0.0 % [facility] nRBC Abs Auto 0.000 0.000 - 0.000 x10(3)/[facility] Blood specimen (specimen) 09/18/2020 5:35 AM EST 09/18/2020 5:47 AM EST Narrative Resulting Agency Comment Spec In Lab Pan Hurtado MD HEMATOLOGY [place] [address] * POCT Glucose (09/18/2020 4:00 AM EST) POC Glucose 148 65 - 199 mg/dL [facility] Comment: Supplemental ranges: <140 mg/dL before meals <180 mg/dL all other times of the day Blood specimen (specimen) 09/18/2020 4:00 AM EST 09/18/2020 4:00 AM EST Pan Hurtado MD POINT OF CARE TEST ORDERABLES [facility] [place] [address] * (ABNORMAL) POCT Glucose (09/18/2020 12:55 AM EST) POC Glucose 207(H) 65 - 199 mg/dL [facility] Comment: Supplemental ranges: <140 mg/dL before meals <180 mg/dL all other times of the day Blood specimen (specimen) 09/18/2020 12:55 AM EST 09/18/2020 12:55 AM EST Pan Hurtado MD POINT OF CARE TEST ORDERABLES Performing Organization Address City/[facility]/ZIP Co de Phone Number [facility] [place] [address] * (ABNORMAL) POCT Glucose (09/17/2020 7:42 PM EST) POC Glucose 217(H) 65 - 199 mg/dL [facility] Comment: Supplemental ranges: <140 mg/dL before meals <180 mg/dL all other times of the day Blood specimen (specimen) 09/17/2020 7:42 PM EST 09/17/2020 7:42 PM EST Pan Hurtado MD POINT OF CARE TEST ORDERABLES [facility] [place] [address] * POCT Glucose (09/17/2020 4:17 PM EST) POC Glucose 165 65 - 199 mg/dL [facility] Comment: Supplemental ranges: <140 mg/dL before meals <180 mg/dL all other times of the day Blood specimen (specimen) 09/17/2020 4:17 PM EST 09/17/2020 4:17 PM EST Pan Hurtado MD POINT OF CARE TEST ORDERABLES [facility] [place] [address] * POCT Glucose (09/17/2020 3:00 PM EST) POC Glucose 178 65 - 199 mg/dL [facility] Comment: Supplemental ranges: <140 mg/dL before meals <180 mg/dL all other times of the day Blood specimen (specimen) 09/17/2020 3:00 PM EST 09/17/2020 3:00 PM EST Pan Hurtado MD POINT OF CARE TEST ORDERABLES Performing Organization Address City/[facility]/ZIP Co de Phone Number [facility] [place] [address] * (ABNORMAL) POCT Glucose (09/17/2020 11:28 AM EST) POC Glucose 251(H) 65 - 199 mg/dL [facility] Comment: Supplemental ranges: <140 mg/dL before meals <180 mg/dL all other times of the day Blood specimen (specimen) 09/17/2020 11:28 AM EST 09/17/2020 11:28 AM EST Pan Hurtado MD POINT OF CARE TEST ORDERABLES Performing Organization Address City/[facility]/ZIP Co de Phone Number [facility] [place] [address] * EKG 12 Lead (09/17/2020 9:03 AM EST) [facility] Ventricular rate 89 BPM MUSE SYSTEM Atrial Rate 89 BPM MUSE SYSTEM P-R Interval 160 ms MUSE SYSTEM QRS Duration 134 ms MUSE SYSTEM Q-T Interval 448 ms MUSE SYSTEM QTC Calculated (Bezet) 545 ms MUSE SYSTEM Calculated P [place] 36 degrees MUSE SYSTEM Calculated R [place] -41 degrees MUSE SYSTEM Calculated T [place] -3 degrees MUSE SYSTEM INTERPRETATION Normal sinus rhythm Left atrial enlargement Left axis deviation Right bundle branch block Abnormal ECG When compared with ECG of 16-SEP-2020 08:57, QRS axis Shifted left Confirmed by MD Amelie, Eusebio Shelton ([id number]) on 09/17/2020 12:57:01 PM MUSE SYSTEM 09/17/2020 9:03 AM EST 09/17/2020 12:57 PM EST Almaztito Carias APRN ECG ORDERABLES Performing Organization Address City/[facility]/ZIP Co de Phone Number MUSE SYSTEM * POCT Glucose (09/17/2020 7:39 AM EST) [facility] POC Glucose 151 65 - 199 mg/dL [facility] Comment: Supplemental ranges: <140 mg/dL before meals <180 mg/dL all other times of the day Blood specimen (specimen) 09/17/2020 7:39 AM EST 09/17/2020 7:39 AM EST Pan Hurtado MD POINT OF CARE TEST ORDERABLES [facility] [place] [address] * (ABNORMAL) Differential, Automated (09/17/2020 5:29 AM EST) [facility] Neutrophils % 77.9 % [facility] Neutr Abs (ANC) 7.13(H) 1.70 - 6.10 x10(3)/mc L [facility] Lymphocytes % 10.2 % [facility] Lymphocytes Abs 0.9 0.9 - 3.2 x10(3)/mc L [facility] Monocytes % 7.4 % [facility] Monocyte Abs 0.7 0.3 - 0.9 x10(3)/[facility] LABORATORY Eosinophils % 3.5 % [facility] Eosinophils Abs 0.3 0.0 - 0.4 x10(3)/[facility]ORATORY Basophils % 0.5 % [facility] Basophils Abs 0.0 0.0 - 0.1 x10(3)/[facility] LABORATORY Immature Gran % 0.50 % [facility] Comment: Immature granulocytes(IG's)percentage and absolute count will include metamyelocytes, myelocytes, and promyelocytes. Blood smears from CBCs yielding IG's will be scanned manually for concordance. If this scan disagrees with the automated IG or if promyelocytes are noted, a manual differential will be performed. Nanci Gran Abs 0.05(H) 0.00 - 0.04 x10(3)/[facility] LAB[facility]ATORY Blood specimen (specimen) 09/17/2020 5:29 AM EST 09/17/2020 5:41 AM EST Narrative Resulting Agency Comment Spec In Lab Almaz Rauschfield CROCKER HEMATOLOGY ORDERAB LES [facility] [place] [address] * (ABNORMAL) Hemogram (09/17/2020 5:29 AM EST) WBC 9.2 4.0 - 9.5 x10(3)/[facility] LABORATORY RBC 3.78(L) 4.00 - 5.21 x10(6)/[facility]ATORY Hemoglobin 8.7(L) 11.7 - 15.5 gm/dL [facility] Hematocrit 28.8(L) 35.7 - 45.8 % [facility] MCV 76.2(L) 82.6 - 94.4 fL [facility] MCH 23.0(L) 27.1 - 32.0 pg [facility] MCHC 30.2(L) 31.7 - 35.0 gm/dL [facility] Platelets 161 145 - 357 x10(3)/[facility] LABORATORY RDWSD 67.0(H) 37.0 - 46.0 fL [facility] RDWCV 26.0(H) 11.5 - 14.1 % [facility] MPV 9.9 7.6 - 12.9 fL [facility] nRBC % Auto 0.0 % [facility] nRBC Abs Auto 0.000 0.000 - 0.000 x10(3)/[facility]ATORY Blood specimen (specimen) 09/17/2020 5:29 AM EST 09/17/2020 5:41 AM EST Narrative Resulting Agency Comment Spec In Lab Almaz Rauschfield TIE BINDER HEMATOLOGY ORDERAB LES [facility] [place] [id number] * (ABNORMAL) Basic Metabolic Panel (non-fasting) (09/17/2020 5:29 AM EST) Glucose Lvl 146 65 - 199 mg/dL [facility] Comment:Diabetes: >=200 mg/d L plus symptoms BUN 15 8 - 18 mg/dL [facility] Creatinine 0.93 0.70 - 1.20 mg/dL [facility] Sodium 139 135 - 145 mmol/L [facility] Potassium 3.9 3.5 - 5.0 mmol/L [facility] Comment: Please note: ??Patients with WBC >100,000 may have falsely elevated Potassium levels. ??For accurate Potassium quantification in these patients send serum separator tube (gold top) for subsequent determinations. ??Contact the Clinical Chemistry Laboratory if there are any questions. Chloride 108(H) 98 - 107 mmol/L [facility] CO2 21(L) 22 - 31 mmol/L [facility] Anion Gap 10 5 - 15 mmol/L [facility] Calcium 8.3(L) 8.5 - 10.5 mg/dL [facility] Estimated GFR 58(L) >=60 mL/min/1. 73 m?? [facility] Comment: This patient? s estimated glomerular filtration rate (eGFR) is between 58 mL/min/1.73 m2 (patients with less muscle mass) and 67 mL/min/1.73 m2 (patients with more muscle mass) [...] in addition to eGFR. Blood specimen (specimen) 09/17/2020 5:29 AM EST 09/17/2020 5:41 AM EST Narrative Resulting Agency Comment Spec In Lab Almaz Carias OBI CHEMISTRY ORDERABL ES [facility] [place] [address] * (ABNORMAL) Troponin (09/17/2020 5:29 AM EST) Troponin-T 0.02(H) 0.00 - 0.00 ng/mL [facility] Comment: The 99th percentile for Troponin T is less than 0.01 ng/mL, any detectable cTnT concentration using this assay should be considered elevated. According to the third universal definition of myocardial infarction the following criteria with a clinical presentation consistent with acute myocardial ischemia meets the diagnosis for a myocardial infarction (SD). Detection of a rise and/or fall of cTnT, with at least one value greater than the 99th percentile (> or = 0.01) and with at least one of the following ?? Symptoms of ischemia ?? New or presumed new significant WU-eieypbb-N wave (ST-T) changes or new left bundle branch block (LBBB) ?? Development of pathologic Q waves in the ECG ?? Imaging evidence of new loss of viable myocardium or new regional wall motion abnormality ?? Identification of an intracoronary thrombus by angiography or autopsy Samples for cTnT testing should be obtained serially upon first assessment and again 3 to 6 hours later. If the clinical suspicion is high and previous samples have been negative an additional sample may be indicated. Reference: Third [place] Definition of Myocardial Infarction. Journal of the [place] [employer] 2012;60:1581-98 Blood specimen (specimen) 09/17/2020 5:29 AM EST 09/17/2020 5:41 AM EST Narrative Resulting Agency Comment Spec In Lab Almaz Carias APRN CHEMISTRY ORDERABL ES Performing Organization Address [facility] [place]/[facility] Co de Phone Number [facility] [place] [address] * POCT Glucose (09/17/2020 3:28 AM EST) POC Glucose 150 65 - 199 mg/dL [facility] Comment: Supplemental ranges: <140 mg/dL before meals <180 mg/dL all other times of the day Blood specimen (specimen) 09/17/2020 3:28 AM EST 09/17/2020 3:28 AM EST Pan Hurtaod MD POINT OF CARE TEST ORDERABLES Performing Organization Address [facility] [place]/[facility] Co de Phone Number [facility] [place] [address] * POCT Glucose (09/17/2020 12:02 AM EST) POC Glucose 159 65 - 199 mg/dL [facility] Comment: Supplemental ranges: <140 mg/dL before meals <180 mg/dL all other times of the day Blood specimen (specimen) 09/17/2020 12:02 AM EST 09/17/2020 12:02 AM EST Pan Hurtado MD POINT OF CARE TEST ORDERABLES Performing Organization Address [facility] [place]/[facility] Co de Phone Number [facility] [place] [address] * POCT Glucose (09/16/2020 8:47 PM EST) POC Glucose 190 65 - 199 mg/dL [facility] Comment: Supplemental ranges: <140 mg/dL before meals <180 mg/dL all other times of the day Blood specimen (specimen) 09/16/2020 8:47 PM EST 09/16/2020 8:47 PM EST Pan Hurtado MD POINT OF CARE TEST ORDERABLES [facility] [place] [address] * POCT Glucose (09/16/2020 4:00 PM EST) POC Glucose 186 65 - 199 mg/dL [facility] Comment: Supplemental ranges: <140 mg/dL before meals <180 mg/dL all other times of the day Blood specimen (specimen) 09/16/2020 4:00 PM EST 09/16/2020 4:00 PM EST Pan Hurtado MD POINT OF CARE TEST ORDERABLES [facility] [place] [address] * POCT Glucose (09/16/2020 2:11 PM EST) POC Glucose 181 65 - 199 mg/dL [facility] Comment: Supplemental ranges: <140 mg/dL before meals <180 mg/dL all other times of the day Blood specimen (specimen) 09/16/2020 2:11 PM EST 09/16/2020 2:11 PM EST Pan Hurtado MD POINT OF CARE TEST ORDERABLES [facility] [place] [address] * XR Chest PA & Lateral (Generic) (09/16/2020 1:57 PM EST) Anatomical Region Laterality Modality Chest N/A Digital Radiogra phy Impressions 09/16/2020 2:29 PM EST Expected position and appearance of aortic stent valve. No active cardiopulmonary pathology identified. Thank you for letting us participate in the care of this patient. For questions regarding this report, please contact the number below. ? Electronically signed by: Mayte Pollack MD, [facility] ([phone]), at 09/16/2020 2:29 PM Narrative 09/16/2020 2:29 PM EST EXAMINATION: XR CHEST PA AND LATERAL (GENERIC) CLINICAL HISTORY: s/p tavr TECHNIQUE: PA and lateral views of the chest. COMPARISON: 04/27/2020. FINDINGS: The lungs appear clear. The cardiomediastinal silhouette, jojo, pulmonary vessels, and pleura are within normal limits. Expected position and appearance of aortic stent valve. Coronary stent is also visible. No significant interval osseous findings are seen. Procedure Note Mayte Pollack MD - 09/16/2020 EXAMINATION: XR CHEST PA AND LATERAL (GENERIC) CLINICAL HISTORY: s/p tavr TECHNIQUE: PA and lateral views of the chest. COMPARISON: 04/27/2020. FINDINGS: The lungs appear clear. The cardiomediastinal silhouette,jojo, pulmonary vessels, and pleura are within normal limits. Expected positionand appearance of aortic stent valve. Coronary stent is also visible. Nosignificant interval osseous findings are seen. IMPRESSION Expected position and appearance of aortic stent valve. No active cardiopulmonary pathology identified. Thank you for letting us participate in the care of this patient. Forquestions regarding this report, please contact the number below. Almaz Carias TIE BINDER IMG DX ORDERABLES * (ABNORMAL) POCT Glucose (09/16/2020 11:51 AM EST) POC Glucose 247(H) 65 - 199 mg/dL [facility] Comment: Supplemental ranges: <140 mg/dL before meals <180 mg/dL all other times of the day Blood specimen (specimen) 09/16/2020 11:51 AM EST 09/16/2020 11:51 AM EST Pan Hurtado MD POINT OF CARE TEST ORDERABLES Performing Organization Address [facility] [place]/[facility] Co de Phone Number [facility] [place] [address] * EKG 12 Lead (09/16/2020 8:57 AM EST) Ventricular rate 66 BPM MUSE SYSTEM Atrial Rate 66 BPM MUSE SYSTEM P-R Interval 174 ms MUSE SYSTEM QRS Duration 132 ms MUSE SYSTEM Q-T Interval 502 ms MUSE SYSTEM QTC Calculated (Bezet) 526 ms MUSE SYSTEM Calculated P [place] 32 degrees MUSE SYSTEM Calculated R [place] -17 degrees MUSE SYSTEM Calculated T [place] -54 degrees MUSE SYSTEM INTERPRETATION Normal sinus rhythm Right bundle branch block Abnormal ECG When compared with ECG of 16-SEP-2020 05:52, (unconfirmed) No significant change was found Confirmed by MD Richard, Alvin ([id number]) on 09/16/2020 11:26:44 PM MUSE SYSTEM 09/16/2020 8:57 AM EST 09/16/2020 11:26 PM EST Pan Hurtado MD ECG ORDERABLES MUSE SYSTEM * POCT Glucose (09/16/2020 8:20 AM EST) POC Glucose 119 65 - 199 mg/dL [facility] Comment: Supplemental ranges: <140 mg/dL before meals <180 mg/dL all other times of the day Blood specimen (specimen) 09/16/2020 8:20 AM EST 09/16/2020 8:20 AM EST Pan Hurtado MD POINT OF CARE TEST ORDERABLES Performing Organization Address [facility] [place]/[facility] Co de Phone Number [facility] [place] [address] * EKG 12 Lead (09/16/2020 5:52 AM EST) Ventricular rate 66 BPM MUSE SYSTEM Atrial Rate 66 BPM MUSE SYSTEM P-R Interval 164 ms MUSE SYSTEM QRS Duration 130 ms MUSE SYSTEM Q-T Interval 496 ms MUSE SYSTEM QTC Calculated (Bezet) 519 ms MUSE SYSTEM Calculated P [place] 34 degrees MUSE SYSTEM Calculated R [place] -17 degrees MUSE SYSTEM Calculated T [place] -16 degrees MUSE SYSTEM INTERPRETATION Normal sinus rhythm Right bundle branch block Abnormal ECG When compared with ECG of 15-SEP-2020 15:18, (unconfirmed) No significant change was found I personally reviewed the tracing and edited the fellows interpretation Confirmed by fellow Anam Cazares ([id number]) on 09/16/2020 4:52:54 PM Confirmed by MD Amelie, Eusebio Shelton ([id number]) on 09/16/2020 7:19:19 PM MUSE SYSTEM 09/16/2020 5:52 AM EST 09/16/2020 7:19 PM EST Pan Hurtado MD ECG ORDERABLES Performing Organization Address City/[facility]/ZIP Co de Phone Number MUSE SYSTEM * POCT Glucose (09/16/2020 4:07 AM EST) POC Glucose 132 65 - 199 mg/dL [facility] Comment: Supplemental ranges: <140 mg/dL before meals <180 mg/dL all other times of the day Blood specimen (specimen) 09/16/2020 4:07 AM EST 09/16/2020 4:07 AM EST Pan Hurtado MD POINT OF CARE TEST ORDERABLES Performing Organization Address City/[facility]/[place] [address] * (ABNORMAL) Differential, Automated (09/16/2020 2:20 AM EST) Neutrophils % 88.7 % [facility] Neutr Abs (ANC) 15.05(H) 1.70 - 6.10 x10(3)/[facility] LABORATORY Lymphocytes % 4.5 % [facility] Lymphocytes Abs 0.8(L) 0.9 - 3.2 x10(3)/[facility] LABORATORY Monocytes % 5.3 % [facility] Monocyte Abs 0.9 0.3 - 0.9 x10(3)/[facility] LAB[facility]ORY Eosinophils % 0.5 % [facility] Eosinophils Abs 0.1 0.0 - 0.4 x10(3)/[facility] LABORATORY Basophils % 0.4 % [facility] Basophils Abs 0.1 0.0 - 0.1 x10(3)/[facility] LABORATORY Immature Gran % 0.60 % [facility] Comment: Immature granulocytes(IG's)percentage and absolute count will include metamyelocytes, myelocytes, and promyelocytes. Blood smears from CBCs yielding IG's will be scanned manually for concordance. If this scan disagrees with the automated IG or if promyelocytes are noted, a manual differential will be performed. Nanci Gran Abs 0.10(H) 0.00 - 0.04 x10(3)/[facility] LABORATORY Blood specimen (specimen) 09/16/2020 2:20 AM EST 09/16/2020 2:30 AM EST Narrative Resulting Agency Comment Spec In Lab Carol Reyna MD HEMATOLOGY ORDERABLES Performing Organization Address City/[facility]/[place] [address] * (ABNORMAL) Hemogram (09/16/2020 2:20 AM EST) WBC 17.0(H) 4.0 - 9.5 x10(3)/[facility] LABORATORY RBC 4.26 4.00 - 5.21 x10(6)/[facility] LAB[facility]AT[facility] Hemoglobin 9.9(L) 11.7 - 15.5 gm/dL [facility] Hematocrit 31.6(L) 35.7 - 45.8 % [facility] MCV 74.2(L) 82.6 - 94.4 fL [facility] MCH 23.2(L) 27.1 - 32.0 pg [facility] MCHC 31.3(L) 31.7 - 35.0 gm/dL [facility] Platelets 247 145 - 357 x10(3)/[facility] RDWSD 61.8(H) 37.0 - 46.0 [facility] LABORATORY RDWCV 24.9(H) 11.5 - 14.1 % [facility] MPV 9.9 7.6 - 12.9 [facility] LABORATORY nRBC % Auto 0.1 % [facility] nRBC Abs Auto 0.020(H) 0.000 - 0.000 x10(3)/[facility] LABORATORY Blood specimen (specimen) 09/16/2020 2:20 AM EST 09/16/2020 2:30 AM EST Narrative Resulting Agency Comment Spec In Lab Carol Reyna MD HEMATOLOGY ORDERABLES [facility] [place] [address] * Magnesium (09/16/2020 2:20 AM EST) Pathologist [facility] Magnesium 0.80 0.69 - 1.07 mmol/L [facility] Blood specimen (specimen) 09/16/2020 2:20 AM EST 09/16/2020 2:30 AM EST Narrative Resulting Agency Comment Spec In Lab Amarilys Cerna MD CHEMISTRY ORDERABLES [facility] [place] [address] * (ABNORMAL) BMP w/fasting Glucose (09/16/2020 2:20 AM EST) Glucose Fasting 136(H) 65 - 99 mg/dL [facility] Comment: ?Fasting* Glucose Interpretive Criteria Normal ?65-99 mg/dL Impaired Fasting glucose ?100-125 mg/dL Consistent with Diabetes Mellitus ? >or= 126 mg/dL *Fasting is defined as no caloric intake for at least 8 hours In the absence of unequivocal hyperglycemia a plasma glucose value of >or= 126 mg/dL should be repeated on a subsequent day. Diagnosis and Classification of Diabetes Mellitus, Position Statement from the [place] [employer]. ??Diabetes Care, Volume 33, Supplement 1, Aug 2009 BUN 18 8 - 18 mg/dL [facility] Creatinine 0.99 0.70 - 1.20 mg/dL [facility] Sodium 137 135 - 145 mmol/L [facility] Potassium 4.0 3.5 - 5.0 mmol/L [facility] Comment: Please note: ??Patients with WBC >100,000 may have falsely elevated Potassium levels. ??For accurate Potassium quantification in these patients send serum separator tube (gold top) for subsequent determinations. ??Contact the Clinical Chemistry Laboratory if there are any questions. Chloride 107 98 - 107 mmol/L [facility] CO2 22 22 - 31 mmol/L [facility] Anion Gap 8 5 - 15 mmol/L [facility] Calcium 8.3(L) 8.5 - 10.5 mg/dL [facility] Estimated GFR 54(L) >=60 mL/min/1. 73 m?? [facility] Comment: This patient? s estimated glomerular filtration rate (eGFR) is between 54 mL/min/1.73 m2 (patients with less muscle mass) and 62 mL/min/1.73 m2 (patients with more muscle mass) [...] in addition to eGFR. Blood specimen (specimen) 09/16/2020 2:20 AM EST 09/16/2020 2:30 AM EST Narrative Resulting Agency Comment Spec In Lab Amarilys Cerna MD CHEMISTRY ORDERABLES Performing Organization Address [facility] [place]/[facility] Co de Phone Number [facility] [place] [address] * APTT (09/16/2020 2:20 AM EST) PTT 28 25 - 37 sec [facility] Comment: The PTT is NOT appropriate for heparin monitoring. Use the Anti-Xa level for heparin monitoring (HEP UFH) or LMWH monitoring (HEP LMW). A PTT less than 37 seconds generally indicates adequate hemostasis. Blood specimen (specimen) 09/16/2020 2:20 AM EST 09/16/2020 2:30 AM EST Narrative Resulting Agency Comment Spec In Lab Amarilys Cerna MD HEMATOLOGY ORDERABLE S Performing Organization Address City/[facility] Co de Phone Number [facility] [place] [address] * (ABNORMAL) Prothrombin Time (09/16/2020 2:20 AM EST) PT 13.3(H) 9.4 - 12.5 sec [facility] INR 1.2 [facility] Comment: An INR <2.0 indicates [...] be appropriate depending on clinical circumstances. Blood specimen (specimen) 09/16/2020 2:20 AM EST 09/16/2020 2:30 AM EST Narrative Resulting Agency Comment Spec In Lab Amarilys Cerna MD HEMATOLOGY ORDERABLE S Performing Organization Address City/[facility]/ZIP Co de Phone Number [facility] [place] [address] * POCT Glucose (09/15/2020 11:15 PM EST) POC Glucose 146 65 - 199 mg/dL [facility] Comment: Supplemental ranges: <140 mg/dL before meals <180 mg/dL all other times of the day Blood specimen (specimen) 09/15/2020 11:15 PM EST 09/15/2020 11:15 PM EST Pan Hurtado MD POINT OF CARE TEST ORDERABLES Performing Organization Address City/[facility] Co de Phone Number [facility] [place] [address] * (ABNORMAL) POCT Glucose (09/15/2020 7:59 PM EST) POC Glucose 200(H) 65 - 199 mg/dL [facility] Comment: Supplemental ranges: <140 mg/dL before meals <180 mg/dL all other times of the day Blood specimen (specimen) 09/15/2020 7:59 PM EST 09/15/2020 7:59 PM EST Pan Hurtado MD POINT OF CARE TEST ORDERABLES Performing Organization Address City/[facility]/ZIP Co de Phone Number [facility] [place] [place] [address] * (ABNORMAL) Hemogram (09/15/2020 3:40 PM EST) [facility] WBC 8.6 4.0 - 9.5 x10(3)/[facility] [place] RBC 4.46 4.00 - 5.21 x10(6)/[facility] [place] Hemoglobin 10.1(L) 11.7 - 15.5 gm/dL [facility] [place] Hematocrit 33.9(L) 35.7 - 45.8 % [facility] MCV 76.0(L) 82.6 - 94.4 fL [facility] MCH 22.6(L) 27.1 - 32.0 pg [facility] MCHC 29.8(L) 31.7 - 35.0 gm/dL [facility] [place] Platelets 194 145 - 357 x10(3)/[facility] [place] RDWSD 64.4(H) 37.0 - 46.0 [facility] LABORATORY RDWCV 25.1(H) 11.5 - 14.1 % [facility] MPV 10.4 7.6 - 12.9 [facility]ATORY nRBC % Auto 0.7 % [facility] nRBC Abs Auto 0.060(H) 0.000 - 0.000 x10(3)/[facility] LAB[facility]ATORY Blood specimen (specimen) 09/15/2020 3:40 PM EST 09/15/2020 4:21 PM EST Narrative Resulting Agency Comment Spec In Lab Abiodun Chun MD HEMATOLOGY ORDERABLE S [facility] [place] [place] [address] * POCT Glucose (09/15/2020 3:28 PM EST) [facility] POC Glucose 180 65 - 199 mg/dL [facility] Comment: Supplemental ranges: <140 mg/dL before meals <180 mg/dL all other times of the day Blood specimen (specimen) 09/15/2020 3:28 PM EST 09/15/2020 3:28 PM EST Pan Hurtado MD POINT OF CARE TEST ORDERABLES Performing Organization Address [facility] [place]/State/[facility] Co de Phone Number [facility] [place] [address] * ECHO COMPLETE (09/15/2020 3:24 PM EST) EF 70 HEARTLAB SYSTEM Anatomical Region Laterality Modality Other 09/15/2020 Narrative 09/16/2020 8:00 AM EST Procedure: ?Transthoracic Echocardiogram Patient: ?HEIDY ASHER A ? (Age): 1940(80y) Med Rec#: ? [id number] ?Sex: ?F ? Site Loc: ? [facility] ?Ht / Wt: ??158(cm)/78(kg) Pt. Loc: ?[employer] [facility] ?BSA: ?1.8 Study Date: ?? 09/15/2020 ?Pt. Type: Inpatient Tape: ? Referring: Esau Rahman Reading: Jos Wheeler ([id number]) Residential Direct Support Professional: Danie Huff Diagnosis: *Nonrheumatic aortic (valve) stenosis (I35.0) Indication: ?? guidance for TAVR procedure BP: ? 158/57 SUMMARY: 1. PRE-TAVR: CORINE 0.74 cm2. Peak/mean gradients 45/25 mmHg. DOI 0.33. SVI 34.4 ml/m2. Hypertrophied left ventricle with normal segmental and global function with an estimated ejection fraction of 65%. Normal right ventricular systolic function. 2. 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 [...] The left ventricular chamber size is normal. ?Mild concentric left ventricular hypertrophy is observed. ?Basal septal hypertrophy is observed. ?There is no evidence of LVOT obstruction. ?There is normal global left ventricular systolic function. ??Ejection fraction is estimated to be 70%. ?There are no left ventricular segmental wall motion abnormalities. Left Atrium: ? The left atrium is severely dilated.(56ml/m2) Right Ventricle: ? The right ventricle is normal in size. ?Right ventricular global systolic function is probably normal. Right Atrium: ? The right atrium is normal in size. Aortic Valve: ? The peak instantaneous trans-valvular gradient across the aortic valve is 21 mmHg.Aquired from the supine apical position with the imaging probe. ?The mean trans-valvular gradient across ??the aortic valve is 11 mmHg.SVI= 34.4ml/m2. DOI= .65 ?The calculated aortic valve area is 1.57 cm2. ?The size of the prosthetic aortic valve is 23mm. 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 ?A bio-prosthetic aortic valve is present.It is known to be a Bobo Jemma 3 Ultra TAVR valve. ?The bio-prosthetic aortic valve appears well seated with normal function. ?There is no prosthetic aortic valve regurgitation present. Mitral Valve: ? There is thickening of both mitral valve leaflets. ?Mitral valve leaflet excursion is moderately reduced. ?There is mitral annular calcification. ?The mean gradient across the mitral valve is 4 mmHg. ?There is mild mitral stenosis present. ?Doppler evaluation of mitral valve regurgitation is inadequate. Tricuspid Valve: ? The tricuspid valve is probably normal. ?There is trace tricuspid regurgitation present. Pericardium: ? There is no pericardial effusion. ?A pericardial fat pad is visualized. Misc: ? See remainder of report for additional findings. ?Two-dimensional echo, spectral Doppler and color Doppler performed. Chambers 2D ?Value ?Units (Range) ? IVSd (2D) ? 1.9 ?cm ? LVPWd (2D) ?1.3 ?cm ? IVS:LVPW ratio (2D) 1.46 ? ratio ? RWT (2D) ?0.82 ? ratio ? RWT PW (2D) ? 0.67 ? ratio ? LVIDd (2D) ?3.9 ?cm ? LVIDd (2D) index ?2.17 ? cm/m2 ? Volumes/Mass ?Value ?Units (Range) ? LA Area 4 CH ?27 ? cm2 (<21) ? RA AREA 4CH ? 13 ? cm2 ? LA ESV BP (MOD) inde56.21 ?ml/m2 ? LV mass (2D) ?249.03 ? g ? LV mass (2D) index ??138.58 ? g/m2 ? Aortic Valve ?Value ?Units (Range) ? AV Vmax ? 2.28 ? m/sec ? AV VTI ?34.5 ? cm ? AV peak gradient ?21 ? mmHg ? AV mean gradient ?11 ? mmHg ? LVOT diameter ? 1.8 ?cm ? LVOT Vmax ? 1.41 ? m/sec ? LVOT VTI ?22.4 ? cm ? LVOT peak gradient ??8 ?mmHg ? LVOT mean gradient ??4 ?mmHg ? DOI (VTI) ? 0.65 ? ratio ? DOI (Vmax) ?0.62 ? ratio ? SV LVOT ? 56.97 ?ml ? SV LVOT Index ? 34.4 ? ml/m2 ? CO LVOT ? 4.2 ?l/min ? Cardiac index ? 2.34 ? l/min/m2 ? CORINE (continuity Vmax1.57 ? cm2 ? CORINE (continuity Vmax0.88 ? cm2/m2 ? CORINE (continuity VTI)1.65 ? cm ? CORINE (continuity VTI)0.92 ? cm2/m2 ? Mitral Valve ?Value ?Units (Range) ? MV Vmax ? 1.49 ? m/sec ? MV VTI ?59.3 ? cm ? MV peak gradient ?9 ?mmHg ? MV mean gradient ?4 ?mmHg ? MV PHT ?188 ?msec ? MVA (PHT) ? 1.17 ? cm2 ? MVA (continuity VTI)0.96 ? cm2 ? Tricuspid Valve ?Value ?Units (Range) ? TR Vmax ? 3.66 ? m/sec ? TR peak gradient ?54 ? mmHg ? RAP ? 3 ?mmHg ? RVSP ?57 ? mmHg ? This report has been electronically signed by: Jos Wheeler MD ? 09/15/2020 16:21:34 Images reviewed and interpretation verified [facility] Procedure Note Jos Wheeler MD - 09/16/2020 Procedure: Transthoracic Echocardiogram Patient: HEIDY Francis (Age): 1940(80y) Med Rec#: [id number] Sex: F Site Loc: [facility] Ht / Wt: 158(cm)/78(kg) Pt. Loc: [employer] [facility] BSA: 1.8 Study Date: 09/15/2020 Pt. Type: Inpatient Tape: Referring: Esau Rahman Reading: Jos Wheeler ([id number]) Residential Direct Support Professional: Danie Huff Diagnosis: *Nonrheumatic aortic (valve) stenosis (I35.0) Indication: guidance for TAVR procedure BP: 158/57 SUMMARY: 1. PRE-TAVR: CORINE 0.74 cm2. Peak/mean gradients 45/25 mmHg. DOI 0.33. SVI 34.4 ml/m2. Hypertrophied left ventricle with normal segmental and global function with an estimated ejection fraction of 65%. Normal right ventricular systolic function. 2. 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 [...] The left ventricular chamber size is normal. Mild concentric left ventricular hypertrophy is observed. Basal septal hypertrophy is observed. There is no evidence of LVOT obstruction. There is normal global left ventricular systolic function. Ejection fraction is estimated to be 70%. There are no left ventricular segmental wall motion abnormalities. Left Atrium: The left atrium is severely dilated.(56ml/m2) Right Ventricle: The right ventricle is normal in size. Right ventricular global systolic function is probably normal. Right Atrium: The right atrium is normal in size. Aortic Valve: The peak instantaneous trans-valvular gradient across the aortic valve is 21 mmHg.Aquired from the supine apical position with the imaging probe. The mean trans-valvular gradient across the aortic valve is 11 mmHg.SVI= 34.4ml/m2. DOI= .65 The calculated aortic valve area is 1.57 cm2. The size of the prosthetic aortic valve is 23mm. The prosthetic aortic valve was implanted on 09/15/2020. A bio-prosthetic aortic valve is present.It is known to be a Bobo Jemma 3 Ultra TAVR valve. The bio-prosthetic aortic valve appears well seated with normal function. There is no prosthetic aortic valve regurgitation present. Mitral Valve: There is thickening of both mitral valve leaflets. Mitral valve leaflet excursion is moderately reduced. There is mitral annular calcification. The mean gradient across the mitral valve is 4 mmHg. There is mild mitral stenosis present. Doppler evaluation of mitral valve regurgitation is inadequate. Tricuspid Valve: The tricuspid valve is probably normal. There is trace tricuspid regurgitation present. Pericardium: There is no pericardial effusion. A pericardial fat pad is visualized. Misc: See remainder of report for additional findings. Two-dimensional echo, spectral Doppler and color Doppler performed. Chambers 2D Value Units (Range) IVSd (2D) 1.9 cm LVPWd (2D) 1.3 cm IVS:LVPW ratio (2D) 1.46 ratio RWT (2D) 0.82 ratio RWT PW (2D) 0.67 ratio LVIDd (2D) 3.9 cm LVIDd (2D) index 2.17 cm/m2 Volumes/Mass Value Units (Range) LA Area 4 CH 27 cm2 (<21) RA AREA 4CH 13 cm2 LA ESV BP (MOD) inde56.21 ml/m2 LV mass (2D) 249.03 g LV mass (2D) index 138.58 g/m2 Aortic Valve Value Units (Range) AV Vmax 2.28 m/sec AV VTI 34.5 cm AV peak gradient 21 mmHg AV mean gradient 11 mmHg LVOT diameter 1.8 cm LVOT Vmax 1.41 m/sec LVOT VTI 22.4 cm LVOT peak gradient 8 mmHg LVOT mean gradient 4 mmHg DOI (VTI) 0.65 ratio DOI (Vmax) 0.62 ratio SV LVOT 56.97 ml SV LVOT Index 34.4 ml/m2 CO LVOT 4.2 l/min Cardiac index 2.34 l/min/m2 CORINE (continuity Vmax1.57 cm2 CORINE (continuity Vmax0.88 cm2/m2 CORINE (continuity VTI)1.65 cm CORINE (continuity VTI)0.92 cm2/m2 Mitral Valve Value Units (Range) MV Vmax 1.49 m/sec MV VTI 59.3 cm MV peak gradient 9 mmHg MV mean gradient 4 mmHg MV PHT 188 msec MVA (PHT) 1.17 cm2 MVA (continuity VTI)0.96 cm2 Tricuspid Valve Value Units (Range) TR Vmax 3.66 m/sec TR peak gradient 54 mmHg RAP 3 mmHg RVSP 57 mmHg This report has been electronically signed by: Jos Wheeler MD 09/15/2020 16:21:34 Images reviewed and interpretation verified [facility] Abiodun Chun MD ECHO ORDERABLES * EKG 12 Lead (09/15/2020 3:18 PM EST) Ventricular rate 69 BPM MUSE SYSTEM Atrial Rate 69 BPM MUSE SYSTEM P-R Interval 156 ms MUSE SYSTEM QRS Duration 136 ms MUSE SYSTEM Q-T Interval 510 ms MUSE SYSTEM QTC Calculated (Bezet) 546 ms MUSE SYSTEM Calculated P [place] 50 degrees MUSE SYSTEM Calculated R [place] 94 degrees MUSE SYSTEM Calculated T [place] -21 degrees MUSE SYSTEM INTERPRETATION Normal sinus rhythm Right bundle branch block T wave abnormality, consider inferior ischemia Abnormal ECG When compared with ECG of 10-SEP-2020 13:18, Nonspecific T wave abnormality no longer evident in Anterolateral leads QT has lengthened Confirmed by MD Richard, Alvin ([id number]) on 09/16/2020 11:17:42 PM MUSE SYSTEM 09/15/2020 3:18 PM EST 09/16/2020 11:17 PM EST Abiodun Chun MD ECG ORDERABLES MUSE SYSTEM * CARDIAC CATHETERIZATION (09/15/2020 3:15 PM EST) Anatomical Region Laterality Modality Other Narrative 09/16/2020 6:34 PM EST ?[facility] ? Cardiac Catheterization/Intervention Report ? Patient Name: SHANNAN CHAUDHARY. ? Procedure Date: 09/15/2020 ? A #: [id number] ? Primary Physician: Coylewright, Esau J ? Case #: [id number] ? File Name: [id number] ? Catheterization Order Number: [id number] ? [facility] ? Final Report [place], [place] ? Patient Name: ? SHANNAN A. HEIDY ? ID#: ?[id number] ? : ?1940 ? Procedure Date: ? September 15, 2020 ? Case #: ? [id number] ? Room: ? 6 ? Case Physicians: ?Esau Rahman M.D. ?Start: ?13:45 ?Pan Hurtado M.D. ? Admission: ??09/10/2020 ? Discharge: ??09/18/2020 ? Referring Physician: ??Reshma Baig M.D. ? Procedures: ?* Left Heart Catheterization ?* Aortic Root Aortogram ?* Transcatheter Aortic Valve Replacement ?* Temporary Pacemaker Insertion In [employer] ?* Arterial Line / Sheath Insert ?* Venous Line / Sheath Insert ?* Transesophageal Echo During Cath ?* Access Site Angiography ?* Arterial Blood Gases ?* Vascular Ultrasound ? History ?SHANNAN CHAUDHARY is an 80 year old woman. She has hypertension. The ?patient's smoking status is Never. She has hypercholesterolemia managed ?by diet and lipid therapy. 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 She has sequelae from diabetes. The patient has a prior history ?of coronary artery disease. She is status post a remote myocardial ?infarction. The patient had a remote coronary intervention procedure. She ?has a history of pulmonary hypertension. The patient has a history of ?CHF. The CHF is newly diagnosed and is classified as Diastolic. The ?patient also has a history of atrial fibrillation/atrial flutter. Prior ?to the initiation of this procedure, the patient was designated as ASA ?Class IV. The [facility] clinical frailty scale is 5: Mildly Frail. ? Diagnostic Tests: ?Prior Coronary Angiography: ? LV ejection fraction within 6 months is 65%. ?Electrocardiography: ? EKG was assessed by ECG. EKG was Abnormal. EKG showed other ? abnormality. ?Medications Prior to Procedure: ? Antiarrhythmic Agent Other, Aspirin, Angiotensin II Receptor Kan ? and Statin. ? Indications for Diagnostic Cath: ?The priority of the diagnostic procedure was Urgent. Chest pain symptom ?assessment was: Asymptomatic. One of the indications for cath is valvular ?heart disease. The patient has Severe aortic stenosis and Mild mitral ?stenosis. ? Technique: ?A 14Fr sheath was inserted in the right femoral artery utilizing the ?Seldinger technique. A 6Fr sheath was inserted in the left femoral artery ?utilizing the Seldinger technique. A 7Fr sheath was inserted in the left ?femoral vein utilizing the Seldinger technique. The aortic root was ?injected utilizing a 6Fr ANGLED PIGTAIL catheter. Left ventricle was ?performed with a 6Fr AL-1 catheter. A Pacel Flow Directed Pacing Cat lead ?was placed for a temporary pacing lead. 5,500 units of heparin were ?administered. A total of 100cc of Omnipaque were opened, 96cc of ?Omnipaque were administered and 4cc of Omnipaque were wasted. Radiation: ?Fluoro time was 7.1 minutes, dose area product was 42,000 mGYcm2 and air ?kerma was 259 mGY. See the case log for additional details. ?The patient received the following medications prior to and during the ?procedure: ? Unfractionated Heparin. ? Hemodynamics: ? Hemodynamic Profile: ?Profile 1 ?CO ? 4.40 ?CI ? 2.44 ?Technique ?Echo ?Left Heart Pressures ? Resting: ? Syst Diast ? EDP ?a ?v ? m ?LV 118 ? 4 ? Stenotic Valve Data: ?Aortic Valve ?Peak Gradient - 45 ?Mean Gradient - 25 ?Area - 0.74 sq. cm. ? Hemodynamics After TAVR: ? Hemodynamic Profile: ?Profile 1 ? Aortography: ?Aortic ?trace ?Regurgitation: ?Comments: ? There were three aortic cusps. There was evidence of aortic valve ? calcification. ? Indication for Selected Procedures: ?A temporary pacemaker was inserted for pacing. ? Transcatheter Aortic Valve Replacement (TAVR): ?A transcatheter aortic valve replacement was performed. The primary ?indication for the procedure was Primary and the reason for the ?procedure was intermediate risk (4-7% risk of 30 day mortality) surgical ?risk. The etiology of the aortic valve disease was degenerative. The ?valve morphology was tricuspid and there was trace/trivial aortic ?insufficiency at baseline. ?The procedure was performed in the hybrid cath suite. The aortic valve ?annular size was 389 sq.mm. as assessed by CTA. At baseline the mean ?trans-valvular gradient was 28.0 mmHg and the aortic valve area was 0.8 ?sq.cm. The calculated STS risk score was 4.0%. ?The procedure was performed under Moderate sedation. Pan Hurtado, ?Shannon participated in the case (see Cardiac Surgery report for additional ?details). ?The TAVR sheath was a 14 Fr Bobo eSheath Introducer and the access ?site was femoral. Rapid ventricular pacing was performed. ?An Bobo Jemma 3 Ultra 23 mm THV ([id number]/f=[id number]) transcatheter valve was ?inserted using standard technique. Protamine was administered at the ?conclusion of the case. ?The post procedure mean trans-valvular gradient was 11.0 mmHg by ?hemodynamic measurement. A post procedure transthoracic echocardiogram ?was performed. The mean trans-TAVR valve gradient was 11.0 mmHg and the ?valve area was 1.5 sq.cm. There was valvular trace/trivial residual ?aortic insufficiency as assessed by echo-TTE. ?The TAVR procedure was successful. ? Vascular Access: ?Vascular Access Angiogram: ? A selective angiogram at the right femoral artery revealed mild ? diffuse disease. ?Vascular Ultrasound: ? Ultrasound of the right femoral artery was used to guide access and ? showed vessel patent with no disease. Needle entry was observed. ?Vascular Access Management: ? A 6 Fr Perclose was deployed at the right femoral artery access ? site. This device was successful. Manual Compression of the right ? femoral artery access site was performed. ? Point of Care Testing: ?ABG: ? Arterial Blood gasses were performed using the I-Stat analyzer at ? 13:51: pH: 7.40, pCO2: 36.7, pO2: 71.0, sPO2: 94%, HCO3: 22 on FIO2: ? 100. ? Arterial Blood gasses were performed using the I-Stat analyzer at ? 14:40: pH: 7.44, pCO2: 26.1, pO2: 75.0, sPO2: 96%, HCO3: 17 on FIO2: ? 100. ?I-Stat: ? I-Stat was performed using the I-Stat analyzer at 13:51: Na+: 142, ? K+: 3.7, Hct: 25%, Hb: 8.5. ? I-Stat was performed using the I-Stat analyzer at 14:40: Na+: 140, ? K+: 3.8, Hct: 29%, Hb: 9.9. ? Dual Antiplatelet (DAPT) Recommendations: ?P2Y12 Loading dose administered prior to arrival in the syrup machine laborer. ?Recommended anti-platelet/anti-thrombotic regimen: ?Continue clopidogrel 75 mg daily for 3 months then stop. ?Custom Protocol: After plavix is stopped, restart asa 81 mg daily. ?These recommendations are made at the time of the intervention. Patient ?and provider preferences or a changing clinical situation may require ?modification of this regimen. Consult [facility] Interventional Cardiology for ?questions. ? Conclusions: ?* Severe aortic stenosis ?* Trace aortic regurgitation ?* Successful Transcatheter Aortic Valve Replacement ?* See Dual Antiplatelet (DAPT) Recommendations above. ?* Successful transcatheter aortic valve replacement via percutaneous ?transfemoral access with a 23 mm JEMMA 3 THV. ? Complications/Events: ?During this case, the patient had severe hypotension requiring ?vasopressors. ? Comments: ?See report for anesthesia and echo staffing. Anesthesia provided ?sedation. ?The cardiac surgeon was present and immediately available to assist, and ?they crossed the valve and brought the valve into the aorta. ?Ultrasound and fluoroscopy used to select vascular access location. See ?description of arteries under access site management. Visualization of ?front wall puncture and confirmation of wire entry above femoral ?bifurcation and below inferior epigastric. ?Percutaneous access with Preclose technique: two Perclose placed, ?followed by heparin bolus (weight based, 80-100 units/kg to maintain ACT ?greater than 250 seconds) followed by the Integene InternationalV e-sheath (the sheath is 14 ?Fr for 23/26 mm valves, and 16 Fr for 29 mm valve) over a Alina wire. ?Left FA ??6 Fr. Sheath. A 6 Fr pigtail was placed over a wire into the ?aortic root. ?Left FV ??6 Fr. Sheath, through which a 5 Fr balloon-tipped pacemaker was ?placed to RV apex under fluoroscopy; pacing thresholds confirmed, pacer ?secured. Pacer set to back up 40 bpm, burst pacing at 180 bpm, 10 mA. ?This sheath was upsized to a 7 Fr. ?The aortic valve was crossed with a 6 Fr AL1 catheter and straight wire; ?this was then exchanged for a 0.035 Amplatz extra stiff guidewire with LV ?curve placed retrograde across the aortic valve. The decision was made to ?implant a 23 mm JEMMA 3 valve. This JEMMA 3 valve was prepped in a ?nominal fashion. After confirmation of valve position, the Commander ?delivery system was advanced, the valve was mounted on the balloon in the ?descending thoracic aorta and the valve delivered around the aortic arch ?to position across the ewiiaapaayp aortic valve. Rapid ventricular pacing was ?instituted, and aortography showed the valve to be properly positioned. ?With rapid ventricular pacing, the valve was deployed in good position. ?TTE showed the valve to be properly positioned with trace paravalvular ?leak. Final pressure gradients were obtained (see hemodynamics section) ?and final root angiography showed a stable THV. Aortic angiography ?performed, with trace aortic insufficiency. The JEMMA 3 valve was placed ?with the ventricular portion of the center marker at the base of the ?annulus, leading to a 90/10 placement. After hydralazine and protamine, ?blood pressure fell to 70 mmHg systolic. TTE was used to rule out ?pericardial effusion and coronary obstruction. No regional wall motion ?abnormalities seen. ?Aortogram used to rule out vascular complications: no bleeding or ?stenosis seen. ?Hgb rechecked twice: 8 and 9, approximately. ?IV fluids given with improvement in blood pressure. 1 Unit PRBC delivered ?via femoral vein sheath. ? The delivery catheter was removed. ?The delivery sheath was withdrawn over a wire and Perclose was performed ?successfully. The other arterial site and venous site were sutured into ?place. Sterile dressings were applied and the patient was then ?transferred to the next stage of care in stable condition for recovery. ?Successful transcatheter aortic valve replacement via percutaneous ?transfemoral access with a 23 mm JEMMA 3 THV. ?The attending physician was present for the entire procedure. ?Dr. Esau Rahman M.D. performed the left heart catheterization, ?aortic root aortogram, temporary pacemaker in syrup machine laborer, arterial line / ?sheath insert, venous line / sheath insert, transesophageal echo during ?cath, ABG, TAVR, access site angiography and vascular ultrasound. . ?Pan Hurtado M.D. performed the left heart catheterization, aortic ?root aortogram, temporary pacemaker in syrup machine laborer, arterial line / sheath ?insert, venous line / sheath insert, transesophageal echo during cath, ABG ?and TAVR. ? Esau J Coylewright, ? M.D. ? Electronically Signed by: Esau J Coylewright, M.D. ? Report Finalized: 09/16/2020 ??18:29 ? Report Last Ammended: 10/08/2020 ??11:00 ? Procedure Note Esau Rahman MD - 10/08/2020 [facility] Cardiac Catheterization/Intervention Report Patient Name: SHANNAN CHAUDHARY Procedure Date: 09/15/2020 A #: [id number] Primary Physician: Esau Rahman Case #: [id number] File Name: [id number] Catheterization Order Number: [id number] [facility] FinalReport [place], [place] Patient Name: SHANNAN CHAUDHARY ID#:[id number] :1940 Procedure Date: September 15, 2020 Case #: [id number] Room: 6 Case Physicians: Esau Rahman M.D. Start: 13:45 Pan Hurtado M.D. Admission:09/10/2020 Discharge:09/18/2020 Referring Physician: Reshma Baig M.D. Procedures: * Left Heart Catheterization * Aortic Root Aortogram * Transcatheter Aortic Valve Replacement * Temporary Pacemaker Insertion In [employer] * Arterial Line / Sheath Insert * Venous Line / Sheath Insert * Transesophageal Echo During Cath * Access Site Angiography * Arterial Blood Gases * Vascular Ultrasound History SHANNAN CHAUDHARY is an 80 year old woman. She has hypertension.The patient's smoking status is Never. She has hypercholesterolemiamanaged by diet and lipid therapy. The patient has insulin dependentdiabetes mellitus. She has sequelae from diabetes. The patient has a priorhistory of coronary artery disease. She is status post a remote myocardial infarction. The patient had a remote coronary interventionprocedure. She has a history of pulmonary hypertension. The patient has a historyof CHF. The CHF is newly diagnosed and is classified as Diastolic. The patient also has a history of atrial fibrillation/atrial flutter.Prior to the initiation of this procedure, the patient was designated asASA Class IV. The [facility] clinical frailty scale is 5: Mildly Frail. Diagnostic Tests: Prior Coronary Angiography: LV ejection fraction within 6 months is 65%. Electrocardiography: EKG was assessed by ECG. EKG was Abnormal. EKG showed other abnormality. Medications Prior to Procedure: Antiarrhythmic Agent Other, Aspirin, Angiotensin II ReceptorBlocker and Statin. Indications for Diagnostic Cath: The priority of the diagnostic procedure was Urgent. Chest painsymptom assessment was: Asymptomatic. One of the indications for cath isvalvular heart disease. The patient has Severe aortic stenosis and Mildmitral stenosis. Technique: A 14Fr sheath was inserted in the right femoral artery utilizing the Seldinger technique. A 6Fr sheath was inserted in the left femoralartery utilizing the Seldinger technique. A 7Fr sheath was inserted in theleft femoral vein utilizing the Seldinger technique. The aortic root was injected utilizing a 6Fr ANGLED PIGTAIL catheter. Left ventricle was performed with a 6Fr AL-1 catheter. A Pacel Flow Directed Pacing Catlead was placed for a temporary pacing lead. 5,500 units of heparin were administered. A total of 100cc of Omnipaque were opened, 96cc of Omnipaque were administered and 4cc of Omnipaque were wasted.Radiation: Fluoro time was 7.1 minutes, dose area product was 42,000 mGYcm2 andair kerma was 259 mGY. See the case log for additional details. The patient received the following medications prior to and duringthe procedure: Unfractionated Heparin. Hemodynamics: Hemodynamic Profile: Profile 1 CO 4.40 CI 2.44 Technique Echo Left Heart Pressures Resting: Syst Diast EDP a v m LV 118 4 Stenotic Valve Data: Aortic Valve Peak Gradient - 45 Mean Gradient - 25 Area - 0.74 sq. cm. Hemodynamics After TAVR: Hemodynamic Profile: Profile 1 Aortography: Aortic trace Regurgitation: Comments: There were three aortic cusps. There was evidence of aorticvalve calcification. Indication for Selected Procedures: A temporary pacemaker was inserted for pacing. Transcatheter Aortic Valve Replacement (TAVR): A transcatheter aortic valve replacement was performed. The primary indication for the procedure was Primary and the reason for the procedure was intermediate risk (4-7% risk of 30 day mortality)surgical risk. The etiology of the aortic valve disease was degenerative. The valve morphology was tricuspid and there was trace/trivial aortic insufficiency at baseline. The procedure was performed in the hybrid cath suite. The aorticvalve annular size was 389 sq.mm. as assessed by CTA. At baseline the mean trans-valvular gradient was 28.0 mmHg and the aortic valve area was0.8 sq.cm. The calculated STS risk score was 4.0%. The procedure was performed under Moderate sedation. Shannon Deutsch participated in the case (see Cardiac Surgery report foradditional details). The TAVR sheath was a 14 Fr Bobo eSheath Introducer and theaccess site was femoral. Rapid ventricular pacing was performed. An Bobo Jemma 3 Ultra 23 mm THV (s/c=[id number]) transcathetervalve was inserted using standard technique. Protamine was administered at the conclusion of the case. The post procedure mean trans-valvular gradient was 11.0 mmHg by hemodynamic measurement. A post procedure transthoracicechocardiogram was performed. The mean trans-TAVR valve gradient was 11.0 mmHg andthe valve area was 1.5 sq.cm. There was valvular trace/trivial residual aortic insufficiency as assessed by echo-TTE. The TAVR procedure was successful. Vascular Access: Vascular Access Angiogram: A selective angiogram at the right femoral artery revealed mild diffuse disease. Vascular Ultrasound: Ultrasound of the right femoral artery was used to guide accessand showed vessel patent with no disease. Needle entry wasobserved. Vascular Access Management: A 6 Fr Perclose was deployed at the right femoral artery access site. This device was successful. Manual Compression of theright femoral artery access site was performed. Point of Care Testing: ABG: Arterial Blood gasses were performed using the I-Stat analyzerat 13:51: pH: 7.40, pCO2: 36.7, pO2: 71.0, sPO2: 94%, HCO3: 22 onFIO2: 100. Arterial Blood gasses were performed using the I-Stat analyzerat 14:40: pH: 7.44, pCO2: 26.1, pO2: 75.0, sPO2: 96%, HCO3: 17 onFIO2: 100. I-Stat: I-Stat was performed using the I-Stat analyzer at 13:51: Na+:142, K+: 3.7, Hct: 25%, Hb: 8.5. I-Stat was performed using the I-Stat analyzer at 14:40: Na+:140, K+: 3.8, Hct: 29%, Hb: 9.9. Dual Antiplatelet (DAPT) Recommendations: P2Y12 Loading dose administered prior to arrival in the syrup machine laborer. Recommended anti-platelet/anti-thrombotic regimen: Continue clopidogrel 75 mg daily for 3 months then stop. Custom Protocol: After plavix is stopped, restart asa 81 mg daily. These recommendations are made at the time of the intervention.Patient and provider preferences or a changing clinical situation mayrequire modification of this regimen. Consult [facility] Interventional Cardiologyfor questions. Conclusions: * Severe aortic stenosis * Trace aortic regurgitation * Successful Transcatheter Aortic Valve Replacement * See Dual Antiplatelet (DAPT) Recommendations above. * Successful transcatheter aortic valve replacement via percutaneous transfemoral access with a 23 mm JEMMA 3 THV. Complications/Events: During this case, the patient had severe hypotension requiring vasopressors. Comments: See report for anesthesia and echo staffing. Anesthesia provided sedation. The cardiac surgeon was present and immediately available to assist,and they crossed the valve and brought the valve into the aorta. Ultrasound and fluoroscopy used to select vascular access location.See description of arteries under access site management. Visualizationof front wall puncture and confirmation of wire entry above femoral bifurcation and below inferior epigastric. Percutaneous access with Preclose technique: two Perclose placed, followed by heparin bolus (weight based, 80-100 units/kg to maintainACT greater than 250 seconds) followed by the THV e-sheath (the sheathis 14 Fr for 23/26 mm valves, and 16 Fr for 29 mm valve) over a Meierwire. Left FA 6 Fr. Sheath. A 6 Fr pigtail was placed over a wire intothe aortic root. Left FV 6 Fr. Sheath, through which a 5 Fr balloon-tipped pacemakerwas placed to RV apex under fluoroscopy; pacing thresholds confirmed,pacer secured. Pacer set to back up 40 bpm, burst pacing at 180 bpm, 10mA. This sheath was upsized to a 7 Fr. The aortic valve was crossed with a 6 Fr AL1 catheter and straightwire; this was then exchanged for a 0.035 Amplatz extra stiff guidewirewith LV curve placed retrograde across the aortic valve. The decision wasmade to implant a 23 mm JEMMA 3 valve. This JEMMA 3 valve was prepped in a nominal fashion. After confirmation of valve position, the Commander delivery system was advanced, the valve was mounted on the balloonin the descending thoracic aorta and the valve delivered around the aorticarch to position across the ewiiaapaayp aortic valve. Rapid ventricular pacingwas instituted, and aortography showed the valve to be properlypositioned. With rapid ventricular pacing, the valve was deployed in goodposition. TTE showed the valve to be properly positioned with traceparavalvular leak. Final pressure gradients were obtained (see hemodynamicssection) and final root angiography showed a stable THV. Aortic angiography performed, with trace aortic insufficiency. The JEMMA 3 valve wasplaced with the ventricular portion of the center marker at the base of the annulus, leading to a 90/10 placement. After hydralazine andprotamine, blood pressure fell to 70 mmHg systolic. TTE was used to rule out pericardial effusion and coronary obstruction. No regional wallmotion abnormalities seen. Aortogram used to rule out vascular complications: no bleeding or stenosis seen. Hgb rechecked twice: 8 and 9, approximately. IV fluids given with improvement in blood pressure. 1 Unit PRBCdelivered via femoral vein sheath. The delivery catheter was removed. The delivery sheath was withdrawn over a wire and Perclose wasperformed successfully. The other arterial site and venous site were suturedinto place. Sterile dressings were applied and the patient was then transferred to the next stage of care in stable condition forrecovery. Successful transcatheter aortic valve replacement via percutaneous transfemoral access with a 23 mm JEMMA 3 THV. The attending physician was present for the entire procedure. Dr. Esau Rahman M.D. performed the left heartcatheterization, aortic root aortogram, temporary pacemaker in syrup machine laborer, arterial line/ sheath insert, venous line / sheath insert, transesophageal echoduring cath, ABG, TAVR, access site angiography and vascular ultrasound. Dr. Pan Hurtado M.D. performed the left heart catheterization,aortic root aortogram, temporary pacemaker in syrup machine laborer, arterial line /sheath insert, venous line / sheath insert, transesophageal echo during cath,ABG and TAVR. Esau Mcgarry M.D. Electronically Signed by: Esau Rahman M.D. Report Finalized: 09/16/2020 18:29 Report Last Ammended: 10/08/2020 11:00 Esau Rahman MD CARDIAC CATH JESSICA BLOCK * (ABNORMAL) Point of Care Blood Gas Historical (09/15/2020 2:40 PM EST) POC pH 7.44 7.35 - 7.45 [facility] POC PCO2 26(L) 35 - 45 mmHg [facility] POC PO2 75(L) 85 - 104 mmHg [facility] POC Base Excess -7.0(L) -3.0 - 3.0 mmol/L [facility] POC HCO3 17.5(L) 20.0 - 26.0 mmol/L [facility] POC Sodium 140 135 - 145 mmol/L [facility] POC Potassium 3.8 3.5 - 5.0 mmol/L [facility] POC Hematocrit 29.0(L) 34.0 - 45.0 % [facility] POC Calc Hgb 9.9(L) 11.2 - 15.7 gm/dL [facility] Comment:The calculation of h emoglobin from hematocrit assumes a normal MCHC. POC Bgas Loc CC LAB [facility] Blood specimen (specimen) 09/15/2020 2:40 PM EST 09/16/2020 9:00 AM EST Pan Hurtado MD CHEMISTRY ORDERABL ES [facility] [place] [address] * Prepare RBC (09/15/2020 2:35 PM EST) Pathologist [facility] Dispensed? Yes [facility] Blood specimen (specimen) 09/15/2020 2:35 PM EST 09/15/2020 2:33 PM EST Abiodun Chun MD BLOOD BANK PRODUCT O RDERABLES Performing Organization Address City/[facility]/ZIP Co de Phone Number [facility] [place] [address] * (ABNORMAL) Point of Care Blood Gas Historical (09/15/2020 1:51 PM EST) [facility] POC pH 7.40 7.35 - 7.45 [facility] POC PCO2 37 35 - 45 mmHg [facility] POC PO2 71(L) 85 - 104 mmHg [facility] POC Base Excess -2.0 -3.0 - 3.0 mmol/L [facility] POC HCO3 22.7 20.0 - 26.0 mmol/L [facility] POC Sodium 142 135 - 145 mmol/L [facility] POC Potassium 3.7 3.5 - 5.0 mmol/L [facility] POC Hematocrit 25.0(L) 34.0 - 45.0 % [facility] POC Calc Hgb 8.5(L) 11.2 - 15.7 gm/dL [facility] Comment:The calculation of h emoglobin from hematocrit assumes a normal MCHC. POC Bgas Loc CC LAB [facility] Blood specimen (specimen) 09/15/2020 1:51 PM EST 09/16/2020 9:00 AM EST Pan Hurtado MD CHEMISTRY ORDERABL ES Performing Organization Address [facility] [place]/[facility]/ZIP Co de Phone Number [facility] [place] [place] [address] * POCT Glucose (09/15/2020 1:50 PM EST) POC Glucose 151 65 - 199 mg/dL [facility] Comment: Supplemental ranges: <140 mg/dL before meals <180 mg/dL all other times of the day Blood specimen (specimen) 09/15/2020 1:50 PM EST 09/15/2020 1:50 PM EST Abiodun Chun MD POINT OF CARE TEST O RDERABLES Performing Organization Address [facility] [place]/[facility] Co de Phone Number [facility] [place] [place] [address] * POCT Glucose (09/15/2020 11:40 AM EST) Pathologist [facility] POC Glucose 176 65 - 199 mg/dL [facility] Comment: Supplemental ranges: <140 mg/dL before meals <180 mg/dL all other times of the day Blood specimen (specimen) 09/15/2020 11:40 AM EST 09/15/2020 11:40 AM EST Abiodun Chun MD POINT OF CARE TEST O RDERATOAN Performing Organization Address [facility] [place]/[facility] Co de Phone Number [facility] [place] [address] * ABORH Recheck Status (09/15/2020 10:09 AM EST) Pathologist [facility] ABORH Type Recheck Completed [facility] Blood specimen (specimen) 09/15/2020 10:09 AM EST 09/15/2020 10:14 AM EST Narrative Resulting Agency Comment Spec In Lab Esau Rahman MD BLOOD BANK LAB OR DERABLES Performing Organization Address [facility] [place]/[facility] Co de Phone Number [facility] [place] [place] [address] * Antibody screen (09/15/2020 10:09 AM EST) Pathologist [facility] Ab Screen Interp Negative [facility] Expires at [id number] on: 09/18/2020 [facility] Blood specimen (specimen) 09/15/2020 10:09 AM EST 09/15/2020 10:14 AM EST Narrative Resulting Agency Comment Spec In Lab Esau Rahman MD BLOOD BANK LAB OR DERABLES Performing Organization Address [facility] [place]/[facility] Co de Phone Number [facility] [place] [place] [address] * ABO/Rh Typing (09/15/2020 10:09 AM EST) ABORH Type O Pos [facility] Blood specimen (specimen) 09/15/2020 10:09 AM EST 09/15/2020 10:14 AM EST Narrative Resulting Agency Comment Spec In Lab Esau Rahman MD BLOOD BANK LAB OR DERABLES Performing Organization Address [facility] de Phone Number [facility] [place] [address] * POCT Glucose (09/15/2020 8:01 AM EST) Pathologist [facility] POC Glucose 137 65 - 199 mg/dL [facility] Comment: Supplemental ranges: <140 mg/dL before meals <180 mg/dL all other times of the day Blood specimen (specimen) 09/15/2020 8:01 AM EST 09/15/2020 8:01 AM EST Abiodun Chun MD POINT OF CARE TEST O RDERABLES Performing Organization Address [facility] [place]/[facility] Co de Phone Number [facility] [place] [address] * (ABNORMAL) Differential, Automated (09/15/2020 4:45 AM EST) Neutrophils % 56.0 % [facility] Neutr Abs (ANC) 3.84 1.70 - 6.10 x10(3)/mc L [facility] Lymphocytes % 27.9 % [facility] Lymphocytes Abs 1.9 0.9 - 3.2 x10(3)/[facility] Monocytes % 8.4 % [facility] Monocyte Abs 0.6 0.3 - 0.9 x10(3)/[facility] Eosinophils % 5.5 % [facility] Eosinophils Abs 0.4 0.0 - 0.4 x10(3)/[facility] Basophils % 1.0 % [facility] Basophils Abs 0.1 0.0 - 0.1 x10(3)/[facility] Immature Gran % 1.20 % [facility] Comment: Immature granulocytes(IG's)percentage and absolute count will include metamyelocytes, myelocytes, and promyelocytes. Blood smears from CBCs yielding IG's will be scanned manually for concordance. If this scan disagrees with the automated IG or if promyelocytes are noted, a manual differential will be performed. Nanci Gran Abs 0.08(H) 0.00 - 0.04 x10(3)/[facility] Blood specimen (specimen) 09/15/2020 4:45 AM EST 09/15/2020 5:15 AM EST Narrative Resulting Agency Comment Spec In Lab Carol Reyna MD HEMATOLOGY ORDERABLES [facility] [place] [address] * (ABNORMAL) Hemogram (09/15/2020 4:45 AM EST) WBC 6.9 4.0 - 9.5 x10(3)/[facility] RBC 3.93(L) 4.00 - 5.21 x10(6)/[facility] Hemoglobin 8.5(L) 11.7 - 15.5 gm/dL [facility] Hematocrit 28.2(L) 35.7 - 45.8 % [facility] MCV 71.8(L) 82.6 - 94.4 fL [facility] MCH 21.6(L) 27.1 - 32.0 pg [facility] MCHC 30.1(L) 31.7 - 35.0 gm/dL [facility] Platelets 316 145 - 357 x10(3)/[facility] RDWSD 56.9(H) 37.0 - 46.0 fL [facility] RDWCV 23.0(H) 11.5 - 14.1 % [facility] MPV 10.2 7.6 - 12.9 fL [facility] nRBC % Auto 0.0 % [facility] nRBC Abs Auto 0.000 0.000 - 0.000 x10(3)/[facility] Blood specimen (specimen) 09/15/2020 4:45 AM EST 09/15/2020 5:15 AM EST Narrative Resulting Agency Comment Spec In Lab Carol Reyna MD HEMATOLOGY ORDERABLES Performing Organization Address City/[facility]/ZIP Co de Phone Number [facility] [place] [place] [address] * Magnesium (09/15/2020 4:45 AM EST) Magnesium 0.92 0.69 - 1.07 mmol/L [facility] Blood specimen (specimen) 09/15/2020 4:45 AM EST 09/15/2020 5:15 AM EST Narrative Resulting Agency Comment Spec In Lab Amarilys Cerna MD CHEMISTRY ORDERABLES Performing Organization Address City/[facility]/ZIP Co de Phone Number [facility] [place] [place] [address] * (ABNORMAL) BMP w/fasting Glucose (09/15/2020 4:45 AM EST) Glucose Fasting 164(H) 65 - 99 mg/dL [facility] Comment: ?Fasting* Glucose Interpretive Criteria Normal ?65-99 mg/dL Impaired Fasting glucose ?100-125 mg/dL Consistent with Diabetes Mellitus ? >or= 126 mg/dL *Fasting is defined as no caloric intake for at least 8 hours In the absence of unequivocal hyperglycemia a plasma glucose value of >or= 126 mg/dL should be repeated on a subsequent day. Diagnosis and Classification of Diabetes Mellitus, Position Statement from the [place] [employer]. ??Diabetes Care, Volume 33, Supplement 1, Aug 2009 BUN 16 8 - 18 mg/dL [facility] Creatinine 0.99 0.70 - 1.20 mg/dL [facility] Sodium 139 135 - 145 mmol/L [facility] Potassium 4.2 3.5 - 5.0 mmol/L [facility] Comment: Please note: ??Patients with WBC >100,000 may have falsely elevated Potassium levels. ??For accurate Potassium quantification in these patients send serum separator tube (gold top) for subsequent determinations. ??Contact the Clinical Chemistry Laboratory if there are any questions. Chloride 106 98 - 107 mmol/L [facility] CO2 24 22 - 31 mmol/L [facility] Anion Gap 9 5 - 15 mmol/L [facility] Calcium 9.0 8.5 - 10.5 mg/dL [facility] Estimated GFR 54(L) >=60 mL/min/1. 73 m?? [facility] Comment: This patient? s estimated glomerular filtration rate (eGFR) is between 54 mL/min/1.73 m2 (patients with less muscle mass) and 62 mL/min/1.73 m2 (patients with more muscle mass) [...] in addition to eGFR. Blood specimen (specimen) 09/15/2020 4:45 AM EST 09/15/2020 5:15 AM EST Narrative Resulting Agency Comment Spec In Lab Amarilys Cerna MD CHEMISTRY ORDERABLES Performing Organization Address [facility] [place]/[facility] Co de Phone Number [facility] [place] [place] [address] * APTT (09/15/2020 4:45 AM EST) PTT 26 25 - 37 sec [facility] Comment: The PTT is NOT appropriate for heparin monitoring. Use the Anti-Xa level for heparin monitoring (HEP UFH) or LMWH monitoring (HEP LMW). A PTT less than 37 seconds generally indicates adequate hemostasis. Blood specimen (specimen) 09/15/2020 4:45 AM EST 09/15/2020 5:15 AM EST Narrative Resulting Agency Comment Spec In Lab Amarilys Cerna MD HEMATOLOGY ORDERABLE S Performing Organization Address [facility] [place]/[facility] Co de Phone Number [facility] [place] [address] * Prothrombin Time (09/15/2020 4:45 AM EST) PT 11.2 9.4 - 12.5 sec [facility] INR 1.0 [facility] Comment: An INR <2.0 indicates [...] be appropriate depending on clinical circumstances. Blood specimen (specimen) 09/15/2020 4:45 AM EST 09/15/2020 5:15 AM EST Narrative Resulting Agency Comment Spec In Lab Amarilys Cerna MD HEMATOLOGY ORDERABLE S Performing Organization Address [facility] [place]/[facility] de Phone Number [facility] [place] [address] * POCT Glucose (09/15/2020 4:27 AM EST) POC Glucose 180 65 - 199 mg/dL [facility] Comment: Supplemental ranges: <140 mg/dL before meals <180 mg/dL all other times of the day Blood specimen (specimen) 09/15/2020 4:27 AM EST 09/15/2020 4:27 AM EST Abiodun Chun MD POINT OF CARE TEST O RDERATOAN Performing Organization Address [facility] de Phone Number [facility] [place] [address] * POCT Glucose (09/15/2020 12:07 AM EST) POC Glucose 189 65 - 199 mg/dL [facility] Comment: Supplemental ranges: <140 mg/dL before meals <180 mg/dL all other times of the day Blood specimen (specimen) 09/15/2020 12:07 AM EST 09/15/2020 12:07 AM EST Abiodun Chun MD POINT OF CARE TEST O RDERABLES Performing Organization Address [facility] de Phone Number [facility] [place] [address] * (ABNORMAL) POCT Glucose (09/14/2020 8:27 PM EST) POC Glucose 218(H) 65 - 199 mg/dL [facility] Comment: Supplemental ranges: <140 mg/dL before meals <180 mg/dL all other times of the day Blood specimen (specimen) 09/14/2020 8:27 PM EST 09/14/2020 8:27 PM EST Abiodun Chun MD POINT OF CARE TEST O RDERABLES Performing Organization Address [facility] [place]/[facility] Co de Phone Number [facility] [place] [address] * POCT Glucose (09/14/2020 5:13 PM EST) POC Glucose 177 65 - 199 mg/dL [facility] Comment: Supplemental ranges: <140 mg/dL before meals <180 mg/dL all other times of the day Blood specimen (specimen) 09/14/2020 5:13 PM EST 09/14/2020 5:13 PM EST Abiodun Chun MD POINT OF CARE TEST O RDERABLES Performing Organization Address [facility] [place]/[facility] Co de Phone Number [facility] [place] [address] * POCT Glucose (09/14/2020 12:31 PM EST) POC Glucose 168 65 - 199 mg/dL [facility] Comment: Supplemental ranges: <140 mg/dL before meals <180 mg/dL all other times of the day Blood specimen (specimen) 09/14/2020 12:31 PM EST 09/14/2020 12:31 PM EST Abiodun Chun MD POINT OF CARE TEST O RDERABLES Performing Organization Address [facility] [place]/[facility] de Phone Number [facility] [place] [place] [address] * CT Angiogram Abdomen & Pelvis w Contrast (Generic) (09/14/2020 11:43 AM EST) Anatomical Region Laterality Modality Abdomen, Pelvis Computed Tomogra phy Impressions 09/14/2020 1:47 PM EST 1. ??Pre-TAVR measurements as above. 2. ??Nonspecific thickening of the pylorus may be inflammatory in etiology. 3. ??Please see separate CT of the chest. I have personally reviewed the image(s) and the resident's interpretation and agree with the findings, Jos Collins, DO at 09/14/2020 1:47 PM Thank you for letting us participate in the care of this patient. For questions regarding this report, please contact the number below. ? Electronically signed by: Jos Collins DO, [facility] ([phone]), at 09/14/2020 1:47 PM Narrative 09/14/2020 1:47 PM EST EXAMINATION: CT ANGIOGRAM ABDOMEN AND PELVIS W CONTRAST (GENERIC) CLINICAL HISTORY: 80-year-old female undergoing TAVR workup. ??Aortic stenosis. TECHNIQUE: Helical CTA of the abdomen and pelvis was performed after intravenous administration of contrast. Administered 95.6 ml of OMNIPAQUE 350.00 mg/ml. Coronal and sagittal reconstructions were generated. Three-dimensional volume reconstructions were created on an independent computer workstation. COMPARISON: Comparison is made to multiple prior CT of the abdomen and pelvis examinations, the most recent which is dated June 18, 2020. FINDINGS: VASCULAR Abdominal aorta: No stenosis or aneurysm (Minimal luminal diameters) Suprarenal aorta: 18 mm Juxtarenal aorta: 18 mm Infrarenal aorta: 10 mm Degree of calcification at aortic bifurcation: Moderate Branch vessels: Celiac artery: Mild stenosis at the origin, widely patent distally. Separate origin of the proper hepatic artery which is also severely stenotic at the origin with minimal poststenotic dilation. SMA: Widely patent. Right renal artery: Widely patent. Left renal artery: Mild stenosis at the origin. JADE: Widely patent. Iliac/Femoral Arteries: Widely patent common iliac, external iliac, internal iliac, and femoral arteries. (Minimal luminal diameters) Right common iliac: 6 mm Right external iliac: 6 mm Right common femoral: 7 mm Left common iliac: 7 mm Left external iliac: 6 mm Left common femoral: 7 mm Tortuosity on the right: 14 degrees/cm Tortuosity on the left: 14 degrees/cm NON-VASCULAR FINDINGS Liver: Normal attenuation and size. Bile ducts: Nondilated. Gallbladder: Surgically absent. Pancreas: Normal attenuation without ductal dilation. Spleen: Normal size. ??A stable 8 mm hypodense lesion in the anterior spleen likely represents a cyst or hemangioma. Adrenals: Normal. Kidneys: Normal. Urinary Bladder: Normal. Lymph Nodes: No enlarged lymph nodes. Bowel: Nondilated loops of small and large bowel. The appendix is normal. Small duodenal diverticulum. Nonspecific thickening of the pylorus, present dating back to March 2020. Peritoneum and mesentery: No ascites, free air, or loculated fluid collection. No mesenteric inflammation. Body wall: Small fat-containing umbilical hernia. Soft tissue attenuation nodule in the posterior subcutaneous fat of the lower back, likely representing a sebaceous cyst, unchanged. Reproductive organs: The uterus is surgically absent. ??Limited evaluation of the adnexa is unremarkable. 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 Procedure Note Jos Collins, - 09/14/2020 EXAMINATION: CT ANGIOGRAM ABDOMEN AND PELVIS W CONTRAST (GENERIC) CLINICAL HISTORY: 80-year-old female undergoing TAVR workup. Aorticstenosis. TECHNIQUE: Helical CTA of the abdomen and pelvis was performed afterintravenous administration of contrast. Administered 95.6 ml of OMNIPAQUE 350.00mg/ml. Coronal and sagittal reconstructions were generated. Three-dimensionalvolume reconstructions were created on an independent computer workstation. COMPARISON: Comparison is made to multiple prior CT of the abdomen andpelvis examinations, the most recent which is dated June 18, 2020. FINDINGS: VASCULAR Abdominal aorta: No stenosis or aneurysm (Minimal luminal diameters) Suprarenal aorta: 18 mm Juxtarenal aorta: 18 mm Infrarenal aorta: 10 mm Degree of calcification at aortic bifurcation: Moderate Branch vessels: Celiac artery: Mild stenosis at the origin, widely patent distally.Separate origin of the proper hepatic artery which is also severely stenotic atthe origin with minimal poststenotic dilation. SMA: Widely patent. Right renal artery: Widely patent. Left renal artery: Mild stenosis at the origin. JADE: Widely patent. Iliac/Femoral Arteries: Widely patent common iliac, external iliac,internal iliac, and femoral arteries. (Minimal luminal diameters) Right common iliac: 6 mm Right external iliac: 6 mm Right common femoral: 7 mm Left common iliac: 7 mm Left external iliac: 6 mm Left common femoral: 7 mm Tortuosity on the right: 14 degrees/cm Tortuosity on the left: 14 degrees/cm NON-VASCULAR FINDINGS Liver: Normal attenuation and size. Bile ducts: Nondilated. Gallbladder: Surgically absent. Pancreas: Normal attenuation without ductal dilation. Spleen: Normal size. A stable 8 mm hypodense lesion in the anteriorspleen likely represents a cyst or hemangioma. Adrenals: Normal. Kidneys: Normal. Urinary Bladder: Normal. Lymph Nodes: No enlarged lymph nodes. Bowel: Nondilated loops of small and large bowel. The appendix is normal.Small duodenal diverticulum. Nonspecific thickening of the pylorus, presentdating back to March 2020. Peritoneum and mesentery: No ascites, free air, or loculated fluidcollection. No mesenteric inflammation. Body wall: Small fat-containing umbilical hernia. Soft tissue attenuationnodule in the posterior subcutaneous fat of the lower back, likely representinga sebaceous cyst, unchanged. Reproductive organs: The uterus is surgically absent. Limited evaluationof the adnexa is unremarkable. Osseous structures: Bilateral hip and sacroiliac joint osteoarthropathy. Multilevel degenerative disc disease in the spine with disc bulge atL4-L5 resulting in at least moderate spinal canal stenosis. IMPRESSION 1. Pre-TAVR measurements as above. 2. Nonspecific thickening of the pylorus may be inflammatory inetiology. 3. Please see separate CT of the chest. I have personally reviewed the image(s) and the resident's interpretationand agree with the findings, Jos Collins DO at 09/14/2020 1:47 PM Thank you for letting us participate in the care of this patient. Forquestions regarding this report, please contact the number below. Electronically signed by: Jos Collins DO, [facility]([phone]), at 09/14/2020 1:47 PM Abiodun Chun MD IMG CT ORDERABLES * CT Cardiac for Morphology & Function (09/14/2020 11:43 AM EST) Anatomical Region Laterality Modality Chest, Cardiac Computed Tomogra phy Impressions 09/14/2020 2:29 PM EST Pre-TAVR measurements as above. Thank you for letting us participate in the care of this patient. For questions regarding this report, please contact the number below. ? Electronically signed by: Raymundo Trivedi MD, [facility] ([phone]), at 09/14/2020 2:29 PM Narrative 09/14/2020 2:[address] for morphology and function with contrast CLINICAL HISTORY: TAVR COMPARISON: None. TECHNIQUE: After timing bolus, 0.6 mm thick axial contiguous sections were obtained through the heart via ECG-gated helical acquisition during intravenous administration of 95.9 cc Omnipaque 350. (CTA abdomen and pelvis is reported separately.) Post-processing was performed on an independent computer workstation including multiplanar MIP reconstructions. FINDINGS: Heart rate: mean 64 bpm, range 59 to 64 bpm Heart rhythm: regular ECG gating: Successful identification of every R wave. Aortic valve: Calcification of leaflets: Mild to moderate Suggested fluoroscopic angulation based on line extending through the nadirs of the three sinuses of Valsalva, set equidistant: ?? ISIS 9 cranial 5 Eapoqth-mx-lecaocsy height: Right: 12.7 mm Left: 14.1 mm Valve leaflet length: Right: 13.5 mm Left: 14.1 mm Annulus: Diameters: 18.8 mm x 26.8 mm Area: 389 mm2 Circumference: 73 mm Calcification: Mild Aortic root/sinuses of Valsalva: Width: 30.8 mm Aortoventricular angle: [50.5] degrees Sinotubular junction: Effacement: Not effaced. Diameters: 23.5 mm x 4.8 mm Area: 468 mm2 Circumference: 78 mm Calcification: Moderate Thoracic aorta beyond the sinotubular junction: Max ascending aortic diameter: 29 x 30.8 mm Aortic arch branch vessels: Configuration: 3 vessels in classic configuration. Patency: Widely patent. Left subclavian artery: [4.4] mm x [5.3] mm Left axillary artery: [4.0] mm x [5.3] mm Annulus to innominate distance: 83.5 mm Other cardiovascular structures: Marked coronary calcifications Pulmonary parenchyma, airways, pleura: No significant findings. Upper abdomen: See separately reported CTA abdomen and pelvis. Skeletal structures: No significant findings. Procedure Note Raymundo Trivedi MD - 09/14/[address] for morphology and function with contrast CLINICAL HISTORY: TAVR COMPARISON: None. TECHNIQUE: After timing bolus, 0.6 mm thick axial contiguous sectionswere obtained through the heart via ECG-gated helical acquisition duringintravenous administration of 95.9 cc Omnipaque 350. (CTA abdomen and pelvis isreported separately.) Post-processing was performed on an independent computer workstation including multiplanar MIP reconstructions. FINDINGS: Heart rate: mean 64 bpm, range 59 to 64 bpm Heart rhythm: regular ECG gating: Successful identification of every R wave. Aortic valve: Calcification of leaflets: Mild to moderate Suggested fluoroscopic angulation based on line extending through thenadirs of the three sinuses of Valsalva, set equidistant: SIIS 9 cranial 5 Gobcntp-ri-tkqqqgmh height: Right: 12.7 mm Left: 14.1 mm Valve leaflet length: Right: 13.5 mm Left: 14.1 mm Annulus: Diameters: 18.8 mm x 26.8 mm Area: 389 mm2 Circumference: 73 mm Calcification: Mild Aortic root/sinuses of Valsalva: Width: 30.8 mm Aortoventricular angle: [50.5] degrees Sinotubular junction: Effacement: Not effaced. Diameters: 23.5 mm x 4.8 mm Area: 468 mm2 Circumference: 78 mm Calcification: Moderate Thoracic aorta beyond the sinotubular junction: Max ascending aortic diameter: 29 x 30.8 mm Aortic arch branch vessels: Configuration: 3 vessels in classic configuration. Patency: Widely patent. Left subclavian artery: [4.4] mm x [5.3] mm Left axillary artery: [4.0] mm x [5.3] mm Annulus to innominate distance: 83.5 mm Other cardiovascular structures: Marked coronary calcifications Pulmonary parenchyma, airways, pleura: No significant findings. Upper abdomen: See separately reported CTA abdomen and pelvis. Skeletal structures: No significant findings. IMPRESSION Pre-TAVR measurements as above. Thank you for letting us participate in the care of this patient. Forquestions regarding this report, please contact the number below. Electronically signed by: Raymundo Trivedi MD, [facility]([phone]), at 09/14/2020 2:29 PM Amarilys Cerna MD IMG CT ORDERABLES * POCT Glucose (09/14/2020 7:38 AM EST) [facility] POC Glucose 169 65 - 199 mg/dL [facility] Comment: Supplemental ranges: <140 mg/dL before meals <180 mg/dL all other times of the day Blood specimen (specimen) 09/14/2020 7:38 AM EST 09/14/2020 7:38 AM EST Abiodun Chun MD POINT OF CARE TEST O RDERABLES Performing Organization Address [place]/[facility] Co de Phone Number [facility] [place] [address] * Scan, Peripheral Blood (09/14/2020 3:51 AM EST) [facility] Plat Estimate Normal [facility] RBC Morphology Abnormal [facility] Microcytes 1-5 /HPF [facility] Ovalocytes 1-5 /HPF [facility] Blood specimen (specimen) 09/14/2020 3:51 AM EST 09/14/2020 4:09 AM EST Narrative Resulting Agency Comment Spec In Lab Carol Reyna MD HEMATOLOGY ORDERABLES Performing Organization Address [facility] [place]/[facility]/ZIP Co de Phone Number [facility] [place] [address] * (ABNORMAL) Differential, Automated (09/14/2020 3:51 AM EST) [facility] Neutrophils % 54.5 % [facility] Neutr Abs (ANC) 3.56 1.70 - 6.10 x10(3)/[facility] Lymphocytes % 27.2 % [facility] Lymphocytes Abs 1.8 0.9 - 3.2 x10(3)/[facility] Monocytes % 9.0 % [facility] Monocyte Abs 0.6 0.3 - 0.9 x10(3)/[facility] Eosinophils % 7.6 % [facility] Eosinophils Abs 0.5(H) 0.0 - 0.4 x10(3)/[facility] Basophils % 1.1 % [facility] Basophils Abs 0.1 0.0 - 0.1 x10(3)/[facility] Immature Gran % 0.60 % [facility] Comment: Immature granulocytes(IG's)percentage and absolute count will include metamyelocytes, myelocytes, and promyelocytes. Blood smears from CBCs yielding IG's will be scanned manually for concordance. If this scan disagrees with the automated IG or if promyelocytes are noted, a manual differential will be performed. Nanci Gran Abs 0.04 0.00 - 0.04 x10(3)/[facility] Blood specimen (specimen) 09/14/2020 3:51 AM EST 09/14/2020 4:09 AM EST Narrative Resulting Agency Comment Spec In Lab Carol Reyna MD HEMATOLOGY ORDERABLES [facility] [place] [address] * (ABNORMAL) Hemogram (09/14/2020 3:51 AM EST) WBC 6.5 4.0 - 9.5 x10(3)/[facility] RBC 3.99(L) 4.00 - 5.21 x10(6)/[facility] Hemoglobin 8.4(L) 11.7 - 15.5 gm/dL [facility] Hematocrit 28.7(L) 35.7 - 45.8 % [facility] MCV 71.9(L) 82.6 - 94.4 fL [facility] MCH 21.1(L) 27.1 - 32.0 pg [facility] MCHC 29.3(L) 31.7 - 35.0 gm/dL [facility] Platelets 325 145 - 357 x10(3)/[facility] RDWSD 55.1(H) 37.0 - 46.0 fL [facility] RDWCV 22.2(H) 11.5 - 14.1 % [facility] MPV 10.0 7.6 - 12.9 [facility] LAB[facility]ATORY nRBC % Auto 0.3 % [facility] nRBC Abs Auto 0.020(H) 0.000 - 0.000 x10(3)/[facility] Blood specimen (specimen) 09/14/2020 3:51 AM EST 09/14/2020 4:09 AM EST Narrative Resulting Agency Comment Spec In Lab Carol Reyna MD HEMATOLOGY ORDERABLES Performing Organization Address City/[facility]/ZIP Co de Phone Number [facility] [place] [address] * Magnesium (09/14/2020 3:51 AM EST) Magnesium 0.96 0.69 - 1.07 mmol/L [facility] Blood specimen (specimen) 09/14/2020 3:51 AM EST 09/14/2020 4:09 AM EST Narrative Resulting Agency Comment Spec In Lab Amarilys Cerna MD CHEMISTRY ORDERABLES Performing Organization Address City/[facility]/ZIP Co de Phone Number [facility] [place] [address] * (ABNORMAL) Hepatic Function Panel (09/14/2020 3:51 AM EST) Total Protein 6.2 6.1 - 8.0 gm/dL [facility] Albumin 4.2 3.2 - 5.2 gm/dL [facility] AST 24 0 - 30 unit/L [facility] ALT 28 0 - 30 unit/L [facility] Alk Phos 111(H) 35 - 105 unit/L [facility] Total Bilirubin 1.0 0.2 - 1.3 mg/dL [facility] Bili, Direct 0.3 0.0 - 0.3 mg/dL [facility] Blood specimen (specimen) 09/14/2020 3:51 AM EST 09/14/2020 4:09 AM EST Narrative Resulting Agency Comment Spec In Lab Amarilys Cerna MD CHEMISTRY ORDERABLES Performing Organization Address City/State/[facility] Co de Phone Number [facility] [place] [address] * (ABNORMAL) BMP w/fasting Glucose (09/14/2020 3:51 AM EST) Pathologist [facility] Glucose Fasting 159(H) 65 - 99 mg/dL [facility] Comment: ?Fasting* Glucose Interpretive Criteria Normal ?65-99 mg/dL Impaired Fasting glucose ?100-125 mg/dL Consistent with Diabetes Mellitus ? >or= 126 mg/dL *Fasting is defined as no caloric intake for at least 8 hours In the absence of unequivocal hyperglycemia a plasma glucose value of >or= 126 mg/dL should be repeated on a subsequent day. Diagnosis and Classification of Diabetes Mellitus, Position Statement from the [place] [employer]. ??Diabetes Care, Volume 33, Supplement 1, Aug 2009 BUN 13 8 - 18 mg/dL [facility] Creatinine 1.11 0.70 - 1.20 mg/dL [facility] Sodium 140 135 - 145 mmol/L [facility] Potassium 4.4 3.5 - 5.0 mmol/L [facility] Comment: Please note: ??Patients with WBC >100,000 may have falsely elevated Potassium levels. ??For accurate Potassium quantification in these patients send serum separator tube (gold top) for subsequent determinations. ??Contact the Clinical Chemistry Laboratory if there are any questions. Chloride 107 98 - 107 mmol/L [facility] CO2 24 22 - 31 mmol/L [facility] Anion Gap 9 5 - 15 mmol/L [facility] Calcium 8.9 8.5 - 10.5 mg/dL [facility] Estimated GFR 47(L) >=60 mL/min/1. 73 m?? [facility] Comment: This patient? s estimated glomerular filtration rate (eGFR) is between 47 mL/min/1.73 m2 (patients with less muscle mass) and 54 mL/min/1.73 m2 (patients with more muscle mass) [...] in addition to eGFR. Blood specimen (specimen) 09/14/2020 3:51 AM EST 09/14/2020 4:09 AM EST Narrative Resulting Agency Comment Spec In Lab Amarilys Cerna MD CHEMISTRY ORDERABLES [facility] [place] [address] * APTT (09/14/2020 3:51 AM EST) PTT 28 25 - 37 sec [facility] Comment: The PTT is NOT appropriate for heparin monitoring. Use the Anti-Xa level for heparin monitoring (HEP UFH) or LMWH monitoring (HEP LMW). A PTT less than 37 seconds generally indicates adequate hemostasis. Blood specimen (specimen) 09/14/2020 3:51 AM EST 09/14/2020 4:09 AM EST Narrative Resulting Agency Comment Spec In Lab Amarilys Cerna MD HEMATOLOGY ORDERABLE S Performing Organization Address [facility] [place]/[facility] de Phone Number [facility] [place] [place] [address] * Prothrombin Time (09/14/2020 3:51 AM EST) PT 12.2 9.4 - 12.5 sec [facility] INR 1.1 [facility] Comment: An INR <2.0 indicates [...] be appropriate depending on clinical circumstances. Blood specimen (specimen) 09/14/2020 3:51 AM EST 09/14/2020 4:09 AM EST Narrative Resulting Agency Comment Spec In Lab Amarilys Cerna MD HEMATOLOGY ORDERABLE S Performing Organization Address [facility] de Phone Number [facility] [place] [address] * POCT Glucose (09/14/2020 3:18 AM EST) POC Glucose 155 65 - 199 mg/dL [facility] Comment: Supplemental ranges: <140 mg/dL before meals <180 mg/dL all other times of the day Blood specimen (specimen) 09/14/2020 3:18 AM EST 09/14/2020 3:18 AM EST Abiodun Chun MD POINT OF CARE TEST O RDERABLES Performing Organization Address [facility] [place]/[facility] Co de Phone Number [facility] [place] [address] * POCT Glucose (09/13/2020 11:31 PM EST) Pathologist [facility] POC Glucose 198 65 - 199 mg/dL [facility] Comment: Supplemental ranges: <140 mg/dL before meals <180 mg/dL all other times of the day Blood specimen (specimen) 09/13/2020 11:31 PM EST 09/13/2020 11:31 PM EST Abiodun Chun MD POINT OF CARE TEST O RDERABLES Performing Organization Address City/[facility]/ZIP Co de Phone Number [facility] [place] [address] * ABORH Recheck Status (09/13/2020 10:50 PM EST) Pathologist [facility] ABORH Type Recheck Completed [facility] Blood specimen (specimen) 09/13/2020 10:50 PM EST 09/13/2020 10:58 PM EST Narrative Resulting Agency Comment Spec In Lab Carol Reyna MD BLOOD BANK LAB ORDERABLES Performing Organization Address [facility] [place]/[facility] Co de Phone Number [facility] [place] [address] * Antibody screen (09/13/2020 10:50 PM EST) Pathologist [facility] Ab Screen Interp Negative [facility] Expires at [id number] on: 09/16/2020 [facility] Blood specimen (specimen) 09/13/2020 10:50 PM EST 09/13/2020 10:58 PM EST Narrative Resulting Agency Comment Spec In Lab Carol Reyna MD BLOOD BANK LAB ORDERABLES Performing Organization Address City/[facility]/ZIP Co de Phone Number [facility] [place] [address] * ABO/Rh Typing (09/13/2020 10:50 PM EST) ABORH Type O Pos [facility] Blood specimen (specimen) 09/13/2020 10:50 PM EST 09/13/2020 10:58 PM EST Narrative Resulting Agency Comment Spec In Lab Carol Reyna MD BLOOD BANK LAB ORDERABLES [facility] [place] [address] * (ABNORMAL) Hemoglobin and Hematocrit, blood (09/13/2020 10:50 PM EST) [facility] Hemoglobin 8.8(L) 11.7 - 15.5 gm/dL [facility] Hematocrit 30.0(L) 35.7 - 45.8 % [facility] Blood specimen (specimen) 09/13/2020 10:50 PM EST 09/13/2020 11:05 PM EST Narrative Resulting Agency Comment Spec In Lab Abiodun Chun MD HEMATOLOGY ORDERABLE S Performing Organization Address City/[facility]/ZIP Co de Phone Number [facility] [place] [place] [address] * (ABNORMAL) POCT Glucose (09/13/2020 8:00 PM EST) [facility] POC Glucose 203(H) 65 - 199 mg/dL [facility] Comment: Supplemental ranges: <140 mg/dL before meals <180 mg/dL all other times of the day Blood specimen (specimen) 09/13/2020 8:00 PM EST 09/13/2020 8:00 PM EST Abiodun Chun MD POINT OF CARE TEST O RDERABLES [facility] [place] [place] [address] * POCT Glucose (09/13/2020 4:43 PM EST) [facility] POC Glucose 192 65 - 199 mg/dL [facility] Comment: Supplemental ranges: <140 mg/dL before meals <180 mg/dL all other times of the day Blood specimen (specimen) 09/13/2020 4:43 PM EST 09/13/2020 4:43 PM EST Abiodun Chun MD POINT OF CARE TEST O ISAIAH Performing Organization Address [facility] [place]/[facility] de Phone Number [facility] [place] [place] [address] * (ABNORMAL) POCT Glucose (09/13/2020 11:37 AM EST) POC Glucose 212(H) 65 - 199 mg/dL [facility] Comment: Supplemental ranges: <140 mg/dL before meals <180 mg/dL all other times of the day Blood specimen (specimen) 09/13/2020 11:37 AM EST 09/13/2020 11:37 AM EST Abiodun Chun MD POINT OF CARE TEST O ISAIAH Performing Organization Address [facility] [place]/[facility] de Phone Number [facility] [place] [place] [address] * Potassium (09/13/2020 11:25 AM EST) Potassium 4.2 3.5 - 5.0 mmol/L [facility] Comment: Please note: ??Patients with WBC >100,000 may have falsely elevated Potassium levels. ??For accurate Potassium quantification in these patients send serum separator tube (gold top) for subsequent determinations. ??Contact the Clinical Chemistry Laboratory if there are any questions. Blood specimen (specimen) 09/13/2020 11:25 AM EST 09/13/2020 11:39 AM EST Narrative Resulting Agency Comment Spec In Lab Pan Hurtado MD CHEMISTRY ORDERABL ES Performing Organization Address [facility] [place]/[facility] Co de Phone Number [facility] [place] [place] [address] * (ABNORMAL) Hemoglobin and Hematocrit, blood (09/13/2020 11:25 AM EST) [facility] Hemoglobin 9.0(L) 11.7 - 15.5 gm/dL [facility] Hematocrit 30.2(L) 35.7 - 45.8 % [facility] Blood specimen (specimen) 09/13/2020 11:25 AM EST 09/13/2020 11:39 AM EST Narrative Resulting Agency Comment Spec In Lab Abiodun Chun MD HEMATOLOGY ORDERABLE S Performing Organization Address City/[facility]/ZIP Co de Phone Number [facility] [place] [place] [address] * POCT Glucose (09/13/2020 7:16 AM EST) [facility] POC Glucose 141 65 - 199 mg/dL [facility] Comment: Supplemental ranges: <140 mg/dL before meals <180 mg/dL all other times of the day Blood specimen (specimen) 09/13/2020 7:16 AM EST 09/13/2020 7:16 AM EST Abiodun Chun MD POINT OF CARE TEST O RDERABLES Performing Organization Address City/[facility]/ZIP Co de Phone Number [facility] [place] [address] * Smear Review Report (09/13/2020 5:39 AM EST) [facility] Smear Review Report [id number] ? Location: [facility]; [id number]; B The signing pathologist has (i) examined the relevant preparation(s) for the specimen(s) and (ii) rendered or confirmed the diagnosis(es). . ? Smear Review DIAGNOSIS Peripheral blood, smear review: - Microcytic anemia compatible with iron deficiency (see Discussion). Electronically signed by: ??Evette HARRY, Tracy Conteh Verified: ??09/13/2020 ?Hematopathologist Performed at: ??-[facility] Dept. of Pathology, [place], [place] DISCUSSION The RBC morphology taken together with the results of recent iron studies (ferritin 12 ng/mL and iron saturation 7%) are consistent with iron deficiency anemia. Most likely etiologic considerations include chronic blood loss (e.g., , GI) and/or inadequate dietary iron intake/malabsorption. ADDITIONAL STUDIES The white blood cell count is ?? 6.14K/uL. The predominating cells are mature neutrophils with normal morphology, and there is no absolute neutropenia (ANC = 3.66K/uL). Occasional atypical lymphocytes are present but no frankly abnormal forms are seen. Microcytic anemia is evident (Hgb ?8.5 g/dL; MCV ??70.3 fL), and RBC morphology is notable for anisopoikilocytosis with hypochromia and occasional elliptocytes and target cells present. There is no increase in schistocytes or spherocytes, and no rouleaux formation is noted. Platelets are normal in number ( 315K/uL) and exhibit normal morphologic features with rare small clumps present. No blasts or abnormal circulating cell populations are appreciated. Neutrophils/bands 60%, Lymphocytes 24%, Monocytes 9%, Eosinophils 7%, Basophils 1%, Immature granulocytes 0%, Erythroid precursors 0/100 WBC. CLINICAL INFORMATION 80 yo woman with anemia. ?? Hematopathologist review of CBC and peripheral blood smear requested for evaluation. [facility] 09/13/2020 5:39 AM EST Abigail Todd MD PATHOLOGY/CYTOLOGY O ISAIAH [facility] [place] [place] [address] * Scan, Peripheral Blood (09/13/2020 5:39 AM EST) Plat Estimate Normal [facility] RBC Morphology Abnormal [facility] Microcytes 1-5 /HPF [facility] Hypochromia Slight [facility] Ovalocytes 6-10 /HPF [facility] Tear Drop Cells 1-5 /HPF [facility] Blood specimen (specimen) 09/13/2020 5:39 AM EST 09/13/2020 5:44 AM EST Narrative Resulting Agency Comment Spec In Lab Carol Reyna MD HEMATOLOGY ORDERABLES [facility] [place] [address] * Differential, Automated (09/13/2020 5:39 AM EST) Neutrophils % 59.7 % [facility] Neutr Abs (ANC) 3.66 1.70 - 6.10 x10(3)/[facility] Lymphocytes % 23.6 % [facility] Lymphocytes Abs 1.4 0.9 - 3.2 x10(3)/[facility] Monocytes % 8.8 % [facility] Monocyte Abs 0.5 0.3 - 0.9 x10(3)/[facility] Eosinophils % 6.8 % [facility] Eosinophils Abs 0.4 0.0 - 0.4 x10(3)/[facility] Basophils % 0.8 % [facility] Basophils Abs 0.0 0.0 - 0.1 x10(3)/[facility] Immature Gran % 0.30 % [facility] Comment: Immature granulocytes(IG's)percentage and absolute count will include metamyelocytes, myelocytes, and promyelocytes. Blood smears from CBCs yielding IG's will be scanned manually for concordance. If this scan disagrees with the automated IG or if promyelocytes are noted, a manual differential will be performed. Nanci Gran Abs 0.02 0.00 - 0.04 x10(3)/[facility] Blood specimen (specimen) 09/13/2020 5:39 AM EST 09/13/2020 5:44 AM EST Narrative Resulting Agency Comment Spec In Lab Carol Reyna MD HEMATOLOGY ORDERABLES [facility] [place] [address] * (ABNORMAL) Hemogram (09/13/2020 5:39 AM EST) WBC 6.1 4.0 - 9.5 x10(3)/[facility] RBC 4.01 4.00 - 5.21 x10(6)/[facility] Hemoglobin 8.5(L) 11.7 - 15.5 gm/dL [facility] Hematocrit 28.2(L) 35.7 - 45.8 % [facility] MCV 70.3(L) 82.6 - 94.4 fL [facility] MCH 21.2(L) 27.1 - 32.0 pg [facility] MCHC 30.1(L) 31.7 - 35.0 gm/dL [facility] Platelets 315 145 - 357 x10(3)/[facility] RDWSD 51.5(H) 37.0 - 46.0 [facility] RDWCV 20.8(H) 11.5 - 14.1 % [facility] MPV 9.8 7.6 - 12.9 [facility] nRBC % Auto 0.3 % [facility] nRBC Abs Auto 0.020(H) 0.000 - 0.000 x10(3)/[facility] Blood specimen (specimen) 09/13/2020 5:39 AM EST 09/13/2020 5:44 AM EST Narrative Resulting Agency Comment Spec In Lab Carol Reyna MD HEMATOLOGY ORDERABLES Performing Organization Address City/[facility]/ZIP Co de Phone Number [facility] [place] [address] * Magnesium (09/13/2020 5:39 AM EST) [facility] Magnesium 1.04 0.69 - 1.07 mmol/L [facility] Blood specimen (specimen) 09/13/2020 5:39 AM EST 09/13/2020 5:44 AM EST Narrative Resulting Agency Comment Spec In Lab Amarilys Cerna MD CHEMISTRY ORDERABLES Performing Organization Address [facility] [place]/[facility] Co de Phone Number [facility] [place] [address] * (ABNORMAL) Hepatic Function Panel (09/13/2020 5:39 AM EST) [facility] Total Protein 6.3 6.1 - 8.0 gm/dL [facility] Albumin 4.0 3.2 - 5.2 gm/dL [facility] AST 41(H) 0 - 30 unit/L [facility] Comment:result rechecked-KS ALT 30 0 - 30 unit/L [facility] Alk Phos 110(H) 35 - 105 unit/L [facility] Total Bilirubin 1.9(H) 0.2 - 1.3 mg/dL [facility] Bili, Direct 0.4(H) 0.0 - 0.3 mg/dL [facility] Blood specimen (specimen) 09/13/2020 5:39 AM EST 09/13/2020 5:44 AM EST Narrative Resulting Agency Comment Spec In Lab Amarilys Cerna MD CHEMISTRY ORDERABLES Performing Organization Address City/[facility]/ZIP Co de Phone Number [facility] [place] [address] * (ABNORMAL) BMP w/fasting Glucose (09/13/2020 5:39 AM EST) [facility] Signature Glucose Fasting 136(H) 65 - 99 mg/dL [facility] Comment: ?Fasting* Glucose Interpretive Criteria Normal ?65-99 mg/dL Impaired Fasting glucose ?100-125 mg/dL Consistent with Diabetes Mellitus ? >or= 126 mg/dL *Fasting is defined as no caloric intake for at least 8 hours In the absence of unequivocal hyperglycemia a plasma glucose value of >or= 126 mg/dL should be repeated on a subsequent day. Diagnosis and Classification of Diabetes Mellitus, Position Statement from the [place] [employer]. ??Diabetes Care, Volume 33, Supplement 1, Aug 2009 BUN 12 8 - 18 mg/dL [facility] Creatinine 0.98 0.70 - 1.20 mg/dL [facility] Sodium 141 135 - 145 mmol/L [facility] Potassium 4.3 3.5 - 5.0 mmol/L [facility] Comment: Please note: ??Patients with WBC >100,000 may have falsely elevated Potassium levels. ??For accurate Potassium quantification in these patients send serum separator tube (gold top) for subsequent determinations. ??Contact the Clinical Chemistry Laboratory if there are any questions. Chloride 108(H) 98 - 107 mmol/L [facility] CO2 23 22 - 31 mmol/L [facility] Anion Gap 10 5 - 15 mmol/L [facility] Calcium 8.8 8.5 - 10.5 mg/dL [facility] Estimated GFR 54(L) >=60 mL/min/1. 73 m?? [facility] Comment: This patient? s estimated glomerular filtration rate (eGFR) is between 54 mL/min/1.73 m2 (patients with less muscle mass) and 63 mL/min/1.73 m2 (patients with more muscle mass) [...] in addition to eGFR. Blood specimen (specimen) 09/13/2020 5:39 AM EST 09/13/2020 5:44 AM EST Narrative Resulting Agency Comment Spec In Lab Amarilys Cerna MD CHEMISTRY ORDERABLES Performing Organization Address [facility] [place]/[facility] de Phone Number [facility] [place] [address] * APTT (09/13/2020 5:39 AM EST) PTT 29 25 - 37 sec [facility] Comment: The PTT is NOT appropriate for heparin monitoring. Use the Anti-Xa level for heparin monitoring (HEP UFH) or LMWH monitoring (HEP LMW). A PTT less than 37 seconds generally indicates adequate hemostasis. Blood specimen (specimen) 09/13/2020 5:39 AM EST 09/13/2020 5:44 AM EST Narrative Resulting Agency Comment Spec In Lab Amarilys Cerna MD HEMATOLOGY ORDERABLE S Performing Organization Address [facility] [place]/[facility] de Phone Number [facility] [place] [address] * (ABNORMAL) Prothrombin Time (09/13/2020 5:39 AM EST) PT 12.8(H) 9.4 - 12.5 sec [facility] INR 1.1 [facility] Comment: An INR <2.0 indicates [...] be appropriate depending on clinical circumstances. Blood specimen (specimen) 09/13/2020 5:39 AM EST 09/13/2020 5:44 AM EST Narrative Resulting Agency Comment Spec In Lab Amarilys Cerna MD HEMATOLOGY ORDERABLE S Performing Organization Address [facility] [place]/[facility] Co de Phone Number [facility] [place] [address] * Peripheral Smear Review (09/13/2020 5:39 AM EST) Periph Smear Rev See Comment [facility] Comment: When completed by the Pathologist, report [id number] will display under Hematopathology Reports. Blood specimen (specimen) 09/13/2020 5:39 AM EST 09/13/2020 5:44 AM EST Narrative Resulting Agency Comment Spec In Lab Abiodun Chun MD HEMATOLOGY ORDERABLE S Performing Organization Address [facility] [place]/[facility] de Phone Number [facility] [place] [address] * POCT Glucose (09/13/2020 4:02 AM EST) POC Glucose 113 65 - 199 mg/dL [facility] Comment: Supplemental ranges: <140 mg/dL before meals <180 mg/dL all other times of the day Blood specimen (specimen) 09/13/2020 4:02 AM EST 09/13/2020 4:02 AM EST Abiodun Chun MD POINT OF CARE TEST O RDERABLES Performing Organization Address [facility] [place]/[facility] Co de Phone Number [facility] [place] [address] * POCT Glucose (09/12/2020 11:46 PM EST) POC Glucose 118 65 - 199 mg/dL [facility] Comment: Supplemental ranges: <140 mg/dL before meals <180 mg/dL all other times of the day Blood specimen (specimen) 09/12/2020 11:46 PM EST 09/12/2020 11:46 PM EST Abiodun Chun MD POINT OF CARE TEST O RDERABLES Performing Organization Address City/[facility] Co de Phone Number [facility] [place] [address] * (ABNORMAL) Hemoglobin and Hematocrit, blood (09/12/2020 10:17 PM EST) Pathologist [facility] Hemoglobin 8.8(L) 11.7 - 15.5 gm/dL [facility] Hematocrit 29.2(L) 35.7 - 45.8 % [facility] Blood specimen (specimen) 09/12/2020 10:17 PM EST 09/12/2020 10:27 PM EST Narrative Resulting Agency Comment Spec In Lab Abiodun Chun MD HEMATOLOGY ORDERABLE S Performing Organization Address [facility] [place]/[facility] Co de Phone Number [facility] [place] [address] * Potassium (09/12/2020 10:17 PM EST) [facility] Potassium 4.2 3.5 - 5.0 mmol/L [facility] Comment: Please note: ??Patients with WBC >100,000 may have falsely elevated Potassium levels. ??For accurate Potassium quantification in these patients send serum separator tube (gold top) for subsequent determinations. ??Contact the Clinical Chemistry Laboratory if there are any questions. Blood specimen (specimen) 09/12/2020 10:17 PM EST 09/12/2020 10:27 PM EST Narrative Resulting Agency Comment Spec In Lab Abiodun Chun MD CHEMISTRY ORDERABLES Performing Organization Address [facility] [place]/[facility] Co de Phone Number [facility] [place] [address] * POCT Glucose (09/12/2020 7:53 PM EST) [facility] POC Glucose 159 65 - 199 mg/dL [facility] Comment: Supplemental ranges: <140 mg/dL before meals <180 mg/dL all other times of the day Blood specimen (specimen) 09/12/2020 7:53 PM EST 09/12/2020 7:53 PM EST Abiodun Chun MD POINT OF CARE TEST O RDERABLES Performing Organization Address [facility] [place]/[facility]/ZIP Co de Phone Number [facility] [place] [place] [address] * (ABNORMAL) Hemoglobin and Hematocrit, blood (09/12/2020 7:12 PM EST) Hemoglobin 8.7(L) 11.7 - 15.5 gm/dL [facility] Hematocrit 28.3(L) 35.7 - 45.8 % [facility] Blood specimen (specimen) 09/12/2020 7:12 PM EST 09/12/2020 8:17 PM EST Narrative Resulting Agency Comment Spec In Lab Amarilys Cerna MD HEMATOLOGY ORDERABLE S Performing Organization Address [facility] [place]/[facility] Co de Phone Number [facility] [place] [address] * POCT Glucose (09/12/2020 3:55 PM EST) POC Glucose 131 65 - 199 mg/dL [facility] Comment: Supplemental ranges: <140 mg/dL before meals <180 mg/dL all other times of the day Blood specimen (specimen) 09/12/2020 3:55 PM EST 09/12/2020 3:55 PM EST Abiodun Chun MD POINT OF CARE TEST O RDROBIN Performing Organization Address City/[facility]/ZIP Co de Phone Number [facility] [place] [place] [address] * Specimen to Pathology (09/12/2020 2:45 PM EST) AP Specimen 09/12/2020 2:45 PM EST 09/12/2020 2:45 PM EST Narrative [facility] - 09/12/2020 2:45 PM EST Specimen requisition ordered. ??Separate Pathology report to follow Abiodun Chun MD PATHOLOGY/CYTOLOGY O ISAIAH Performing Organization Address [facility] [place]/[facility] Co de Phone Number [facility] [address] * Surgical Pathology Report (09/12/2020 2:04 PM EST) Surgical Pathology Report [id number] ? Location: [facility]; [facility]; The signing pathologist has (i) examined the relevant preparation(s) for the specimen(s) and (ii) rendered or confirmed the diagnosis(es). . ?Surgical Pathology DIAGNOSIS Stomach, ??biopsy: Gastric antral and fundic gland mucosa with nonspecific reactive gastropathy. No H. pylori-like microorganism is seen. Electronically signed by: ??Chhaya Sandra MD Verified: ??09/20/2020 ?Pathologist Performed at: ??-[facility] Dept. of Pathology, [place], [place] SPECIMEN(S) SUBMITTED A - gastric biopsies. ??R/O H. Pylori, biopsy (Multiple) CLINICAL INFORMATION [place] SPECIMEN PROCESSING A - Labeled/Fixative: Gastric biopsies, rule out H. pylori, formalin. Quantity/Size: Multiple, ranging from 0.2-0.4 cm. Tissue Description: Soft, dowell tissues. Sections/Processi ng: Submitted en toto ??in 2 cassettes labeled A1-A2. ??sns [facility] 09/12/2020 2:04 PM EST Mane Avila MD PATHOLOGY/CYTOLOGY O ISAIAH Performing Organization Address [facility] [place]/[facility] Co de Phone Number [facility] [place] [address] * Potassium (09/12/2020 1:11 PM EST) Potassium 3.9 3.5 - 5.0 mmol/L [facility] Comment: Please note: ??Patients with WBC >100,000 may have falsely elevated Potassium levels. ??For accurate Potassium quantification in these patients send serum separator tube (gold top) for subsequent determinations. ??Contact the Clinical Chemistry Laboratory if there are any questions. Blood specimen (specimen) 09/12/2020 1:11 PM EST 09/12/2020 1:17 PM EST Narrative Resulting Agency Comment Spec In Lab Pan Hurtado MD CHEMISTRY ORDERABL ES Performing Organization Address [facility] [place]/[facility]/ZIP Co de Phone Number [facility] [place] [address] * (ABNORMAL) Hemoglobin and Hematocrit, blood (09/12/2020 1:11 PM EST) Pathologist [facility] Hemoglobin 8.4(L) 11.7 - 15.5 gm/dL [facility] Hematocrit 27.9(L) 35.7 - 45.8 % [facility] Blood specimen (specimen) 09/12/2020 1:11 PM EST 09/12/2020 1:17 PM EST Narrative Resulting Agency Comment Spec In Lab Amarilys Cerna MD HEMATOLOGY ORDERABLE S Performing Organization Address City/[facility]/ZIP Co de Phone Number [facility] [place] [address] * UPPER GI ENDOSCOPY (09/12/2020 12:57 PM EST) UPPER GI ENDOSCOPY [facility] Endoscopy Procedure Date: 09/12/2020 12:57 PM ? Patient Name: Shannan Chaudhary ? Date of : 1940 ? Age: 80 ? Order #: [id number] ? Instrument Name: [id number] ? Procedure: ? Upper GI endoscopy Indications: ? Iron deficiency anemia Providers: ? Mane Avila MD, Asha J. ? Isabel Powell Michael D. ? Mary Referring : ? Medicines: ? Propofol per Anesthesia Complications: ? No immediate complications. Procedure: ? The procedure, indications, benefits, ? risks and alternatives were explained ? to the patient. Specifically ? discussed were potential ? complications including, but not ? limited to, bleeding, perforation, ? infection, missing a cancer, and ? adverse medication reactions. The ? Endoscope was introduced through the ? mouth, and advanced to the second ? part of duodenum. The patient ? tolerated the procedure well. The ? upper GI endoscopy was accomplished ? without difficulty. ? Findings: ? The Z-line was regular and was found 37 cm from the ? incisors. ? White exudate along majority of the distal 1/3rd of ? the esophagus. Not easily washed away. No underlying ? ulceration or erosions. ? The entire examined stomach was normal. Biopsies were ? taken with a cold forceps for Helicobacter pylori ? testing. ? The examined duodenum was normal. ? Moderate Sedation: ? Not applicable - See Anesthesia documentation Impression: ?- Z-line regular, 37 cm from the ? incisors. ? - Exudate in the lower 1/3rd of the ? esophagus, no underlying ? erosions/ulcerati ons. Likely ? represents healing of previous Grade ? D esophagitis. ? - Normal stomach. Biopsied. ? - Normal examined duodenum. Recommendation: ?- Await pathology results. ? - Colonoscopy today ? Attending Participation: ? I was present and participated during the entire ? procedure, including non-sanchez portions. ? _ Mane Avila MD 09/12/2020 2:13:12 PM Number of Addenda: 0 Note Initiated On: 09/12/2020 12:57 PM PROVATION 09/12/2020 12:5 7 PM EST Unknown GENERAL SURGICAL ORD ERABLES PROVATION * COLONOSCOPY (09/12/2020 12:56 PM EST) COLONOSCOPY [facility] Endoscopy Procedure Date: 09/12/2020 12:56 PM ? Patient Name: Shannan Chaudhary ? N: [id number] ? Date of : 1940 ? Age: 80 ? Order #: [id number] ? Instrument Name: [id number] ? Procedure: ? Colonoscopy Indications: ? Iron deficiency anemia Providers: ? Mane Avila MD, Asha Martins ? Sherry, Isabel Pleitez, Harris De Guzman ? Mary Referring : [...] PM EST Unknown GENERAL SURGICAL ORD ERABLES Performing Organization Address [facility] [place]/[facility] de Phone Number [employer]ATION * POCT Glucose (09/12/2020 11:55 AM EST) POC Glucose 125 65 - 199 mg/dL [facility] Comment: Supplemental ranges: <140 mg/dL before meals <180 mg/dL all other times of the day Blood specimen (specimen) 09/12/2020 11:55 AM EST 09/12/2020 11:55 AM EST Abiodun Chun MD POINT OF CARE TEST O RDERABLES Performing Organization Address [facility] Phone Number [facility] [place] [address] * POCT Glucose (09/12/2020 8:06 AM EST) POC Glucose 142 65 - 199 mg/dL [facility] Comment: Supplemental ranges: <140 mg/dL before meals <180 mg/dL all other times of the day Blood specimen (specimen) 09/12/2020 8:06 AM EST 09/12/2020 8:06 AM EST Abiodun Chun MD POINT OF CARE TEST O RDERABLES Performing Organization Address [facility] [place]/[facility] de Phone Number [facility] [place] [address] * (ABNORMAL) Hemoglobin and Hematocrit, blood (09/12/2020 7:47 AM EST) [facility] Hemoglobin 8.0(L) 11.7 - 15.5 gm/dL [facility] Hematocrit 26.0(L) 35.7 - 45.8 % [facility] Blood specimen (specimen) 09/12/2020 7:47 AM EST 09/12/2020 7:52 AM EST Narrative Resulting Agency Comment Spec In Lab Amarilys Cerna MD HEMATOLOGY ORDERABLE S Performing Organization Address [facility] [place]/[facility] Co de Phone Number [facility] [place] [address] * POCT Glucose (09/12/2020 4:38 AM EST) [facility] POC Glucose 173 65 - 199 mg/dL [facility] Comment: Supplemental ranges: <140 mg/dL before meals <180 mg/dL all other times of the day Blood specimen (specimen) 09/12/2020 4:38 AM EST 09/12/2020 4:38 AM EST Abiodun Chun MD POINT OF CARE TEST O RDERABLES Performing Organization Address [facility] [place]/[facility]/ZIP Co de Phone Number [facility] [place] [address] * Differential, Automated (09/12/2020 1:43 AM EST) [facility] Neutrophils % 59.2 % [facility] Neutr Abs (ANC) 4.62 1.70 - 6.10 x10(3)/[facility] Lymphocytes % 25.0 % [facility] Lymphocytes Abs 2.0 0.9 - 3.2 x10(3)/[facility] Monocytes % 10.8 % [facility] Monocyte Abs 0.8 0.3 - 0.9 x10(3)/[facility] Eosinophils % 3.7 % [facility] Eosinophils Abs 0.3 0.0 - 0.4 x10(3)/[facility] Basophils % 1.0 % [facility] Basophils Abs 0.1 0.0 - 0.1 x10(3)/[facility] Immature Gran % 0.30 % [facility] Comment: Immature granulocytes(IG's)percentage and absolute count will include metamyelocytes, myelocytes, and promyelocytes. Blood smears from CBCs yielding IG's will be scanned manually for concordance. If this scan disagrees with the automated IG or if promyelocytes are noted, a manual differential will be performed. Nanci Gran Abs 0.02 0.00 - 0.04 x10(3)/[facility] Blood specimen (specimen) 09/12/2020 1:43 AM EST 09/12/2020 1:48 AM EST Narrative Resulting Agency Comment Spec In Lab Carol Reyna MD HEMATOLOGY ORDERABLES Performing Organization Address City/State/[facility] Co de Phone Number [facility] [place] [phone] * (ABNORMAL) Hemogram (09/12/2020 1:43 AM EST) WBC 7.8 4.0 - 9.5 x10(3)/[facility] RBC 4.35 4.00 - 5.21 x10(6)/[facility] Hemoglobin 9.3(L) 11.7 - 15.5 gm/dL [facility] Hematocrit 30.8(L) 35.7 - 45.8 % [facility] MCV 70.8(L) 82.6 - 94.4 fL [facility] MCH 21.4(L) 27.1 - 32.0 pg [facility] MCHC 30.2(L) 31.7 - 35.0 gm/dL [facility] Platelets 353 145 - 357 x10(3)/[facility] RDWSD 50.0(H) 37.0 - 46.0 fL [facility] RDWCV 19.9(H) 11.5 - 14.1 % [facility] MPV 10.3 7.6 - 12.9 fL [facility] nRBC % Auto 0.3 % [facility] nRBC Abs Auto 0.020(H) 0.000 - 0.000 x10(3)/mcL [facility] Blood specimen (specimen) 09/12/2020 1:43 AM EST 09/12/2020 1:48 AM EST Narrative Resulting Agency Comment Spec In Lab Carol Reyna MD HEMATOLOGY ORDERABLES Performing Organization Address [facility] [place]/[facility]/ZIP Co de Phone Number [facility] [place] [address] * Magnesium (09/12/2020 1:43 AM EST) Pathologist [facility] Magnesium 1.05 0.69 - 1.07 mmol/L [facility] Blood specimen (specimen) 09/12/2020 1:43 AM EST 09/12/2020 1:48 AM EST Narrative Resulting Agency Comment Spec In Lab Amarilys Cerna MD CHEMISTRY ORDERABLES Performing Organization Address City/[facility]/ZIP Co de Phone Number [facility] [place] [address] * (ABNORMAL) Hepatic Function Panel (09/12/2020 1:43 AM EST) Total Protein 7.1 6.1 - 8.0 gm/dL [facility] Albumin 4.5 3.2 - 5.2 gm/dL [facility] AST 23 0 - 30 unit/L [facility] ALT 21 0 - 30 unit/L [facility] Alk Phos 120(H) 35 - 105 unit/L [facility] Total Bilirubin 2.7(H) 0.2 - 1.3 mg/dL [facility] Bili, Direct 0.3 0.0 - 0.3 mg/dL [facility] Blood specimen (specimen) 09/12/2020 1:43 AM EST 09/12/2020 1:48 AM EST Narrative Resulting Agency Comment Spec In Lab Amarilys Cerna MD CHEMISTRY ORDERABLES Performing Organization Address City/[facility] Co de Phone Number [facility] [place] [address] * (ABNORMAL) BMP w/fasting Glucose (09/12/2020 1:43 AM EST) Glucose Fasting 136(H) 65 - 99 mg/dL [facility] Comment: ?Fasting* Glucose Interpretive Criteria Normal ?65-99 mg/dL Impaired Fasting glucose ?100-125 mg/dL Consistent with Diabetes Mellitus ? >or= 126 mg/dL *Fasting is defined as no caloric intake for at least 8 hours In the absence of unequivocal hyperglycemia a plasma glucose value of >or= 126 mg/dL should be repeated on a subsequent day. Diagnosis and Classification of Diabetes Mellitus, Position Statement from the [place] [employer]. ??Diabetes Care, Volume 33, Supplement 1, Aug 2009 BUN 17 8 - 18 mg/dL [facility] Creatinine 1.15 0.70 - 1.20 mg/dL [facility] Sodium 140 135 - 145 mmol/L [facility] Comment:result rechecked-[place] Potassium 4.2 3.5 - 5.0 mmol/L [facility] Comment: result rechecked-KS Please note: ??Patients with WBC >100,000 may have falsely elevated Potassium levels. ??For accurate Potassium quantification in these patients send serum separator tube (gold top) for subsequent determinations. ??Contact the Clinical Chemistry Laboratory if there are any questions. Chloride 102 98 - 107 mmol/L [facility] Comment:result rechecked-[place] CO2 24 22 - 31 mmol/L [facility] Anion Gap 14 5 - 15 mmol/L [facility] Calcium 9.3 8.5 - 10.5 mg/dL [facility] Estimated GFR 45(L) >=60 mL/min/1. 73 m?? [facility] Comment: This patient? s estimated glomerular filtration rate (eGFR) is between 45 mL/min/1.73 m2 (patients with less muscle mass) and 52 mL/min/1.73 m2 (patients with more muscle mass) [...] in addition to eGFR. Blood specimen (specimen) 09/12/2020 1:43 AM EST 09/12/2020 1:48 AM EST Narrative Resulting Agency Comment Spec In Lab Amarilys Cerna MD CHEMISTRY ORDERABLES Performing Organization Address [facility] [place]/[facility] de Phone Number [facility] [place] [place] [address] * APTT (09/12/2020 1:43 AM EST) PTT 25 25 - 37 sec [facility] Comment: The PTT is NOT appropriate for heparin monitoring. Use the Anti-Xa level for heparin monitoring (HEP UFH) or LMWH monitoring (HEP LMW). A PTT less than 37 seconds generally indicates adequate hemostasis. Blood specimen (specimen) 09/12/2020 1:43 AM EST 09/12/2020 1:48 AM EST Narrative Resulting Agency Comment Spec In Lab Amarilys Cerna MD HEMATOLOGY ORDERABLE S Performing Organization Address City/[facility] Co de Phone Number [facility] [place] [address] * (ABNORMAL) Prothrombin Time (09/12/2020 1:43 AM EST) PT 12.9(H) 9.4 - 12.5 sec [facility] INR 1.1 [facility] Comment: An INR <2.0 indicates [...] be appropriate depending on clinical circumstances. Blood specimen (specimen) 09/12/2020 1:43 AM EST 09/12/2020 1:48 AM EST Narrative Resulting Agency Comment Spec In Lab Amarilys Cerna MD HEMATOLOGY ORDERABLE S Performing Organization Address City/[facility]/ZIP Co de Phone Number [facility] [place] [address] * POCT Glucose (09/11/2020 11:48 PM EST) POC Glucose 121 65 - 199 mg/dL [facility] Comment: Supplemental ranges: <140 mg/dL before meals <180 mg/dL all other times of the day Blood specimen (specimen) 09/11/2020 11:48 PM EST 09/11/2020 11:48 PM EST Abiodun Chun MD POINT OF CARE TEST O RDERABLES [facility] [place] [address] * POCT Glucose (09/11/2020 8:19 PM EST) POC Glucose 179 65 - 199 mg/dL [facility] Comment: Supplemental ranges: <140 mg/dL before meals <180 mg/dL all other times of the day Blood specimen (specimen) 09/11/2020 8:19 PM EST 09/11/2020 8:19 PM EST Abiodun Chun MD POINT OF CARE TEST O RDERABLES Performing Organization Address [facility] [place]/[facility] Co de Phone Number [facility] [place] [address] * POCT Glucose (09/11/2020 7:40 PM EST) POC Glucose 181 65 - 199 mg/dL [facility] Comment: Supplemental ranges: <140 mg/dL before meals <180 mg/dL all other times of the day Blood specimen (specimen) 09/11/2020 7:40 PM EST 09/11/2020 7:40 PM EST Abiodun Chun MD POINT OF CARE TEST O ISAIAH Performing Organization Address [facility] [place]/[facility] Co de Phone Number [facility] [place] [address] * (ABNORMAL) Hemoglobin and Hematocrit, blood (09/11/2020 6:22 PM EST) Hemoglobin 8.2(L) 11.7 - 15.5 gm/dL [facility] Hematocrit 26.9(L) 35.7 - 45.8 % [facility] Blood specimen (specimen) 09/11/2020 6:22 PM EST 09/11/2020 6:55 PM EST Narrative Resulting Agency Comment Spec In Lab Amarilys Cerna MD HEMATOLOGY ORDERABLE S Performing Organization Address [facility] [place]/[facility] Co de Phone Number [facility] [place] [address] * (ABNORMAL) POCT Glucose (09/11/2020 5:17 PM EST) POC Glucose 285(H) 65 - 199 mg/dL [facility] Comment: Supplemental ranges: <140 mg/dL before meals <180 mg/dL all other times of the day Blood specimen (specimen) 09/11/2020 5:17 PM EST 09/11/2020 5:17 PM EST Abiodun Chun MD POINT OF CARE TEST O RDERABLES Performing Organization Address City/[facility]/ZIP Co de Phone Number [facility] [place] [address] * POCT Glucose (09/11/2020 12:16 PM EST) POC Glucose 120 65 - 199 mg/dL [facility] Comment: Supplemental ranges: <140 mg/dL before meals <180 mg/dL all other times of the day Blood specimen (specimen) 09/11/2020 12:16 PM EST 09/11/2020 12:16 PM EST Abiodun hCun MD POINT OF CARE TEST O RDERABLES Performing Organization Address [facility] [place]/[facility] Co de Phone Number [facility] [place] [address] * (ABNORMAL) Potassium (09/11/2020 11:47 AM EST) Potassium 3.0(Criti ciera) 3.5 - 5.0 mmol/L [facility] Comment: Called by: miguelina, Read back by: sarah berry, Date/Time:09/11/20 19:27. Please note: ??Patients with WBC >100,000 may have falsely elevated Potassium levels. ??For accurate Potassium quantification in these patients send serum separator tube (gold top) for subsequent determinations. ??Contact the Clinical Chemistry Laboratory if there are any questions. Blood specimen (specimen) Venous Draw / Unknown 09/11/2020 11:47 AM EST 09/11/2020 12:24 PM EST Narrative Resulting Agency Comment Spec In Lab Abiodun Chun MD CHEMISTRY ORDERABLES Performing Organization Address [facility] [place]/[facility]/ZIP Co de Phone Number [facility] [place] [address] * (ABNORMAL) Hemoglobin and Hematocrit, blood (09/11/2020 11:47 AM EST) [facility] Hemoglobin 8.4(L) 11.7 - 15.5 gm/dL [facility] Hematocrit 26.8(L) 35.7 - 45.8 % [facility] Blood specimen (specimen) 09/11/2020 11:47 AM EST 09/11/2020 12:19 PM EST Narrative Resulting Agency Comment Spec In Lab Amarilys Cerna MD HEMATOLOGY ORDERABLE S [facility] [place] [address] * (ABNORMAL) Ferritin (09/11/2020 11:47 AM EST) [facility] Ferritin 12(L) 30 - 400 ng/mL [facility] Comment: Pediatric reference ranges not verified at [facility], interpret with caution. Reference ranges for females greater than 50 years of age approach values for men, i.e., 30-400 ng/mL. Blood specimen (specimen) 09/11/2020 11:47 AM EST 09/11/2020 12:19 PM EST Narrative Resulting Agency Comment Spec In Lab Abiodun Chun MD CHEMISTRY ORDERABLES Performing Organization Address City/[facility]/ZIP Co de Phone Number [facility] [place] [address] * (ABNORMAL) Iron and TIBC (09/11/2020 11:47 AM EST) [facility] Iron 33 30 - 150 mcg/dL [facility] TIBC 494(H) 250 - 450 mcg/dL [facility] Iron Saturation 7(L) 20 - 50 % [facility] Blood specimen (specimen) 09/11/2020 11:47 AM EST 09/11/2020 12:19 PM EST Narrative Resulting Agency Comment Spec In Lab Abiodun Chun MD CHEMISTRY ORDERABLES [facility] [place] [address] * Scan, Peripheral Blood (09/11/2020 5:36 AM EST) Plat Estimate Normal [facility] RBC Morphology Abnormal [facility] Microcytes gtr than 10 /HPF [facility] Hypochromia Moderate [facility] Polychromasia Present >5/HPF [facility] Ovalocytes 1-5 /HPF [facility] Giant Platelets Less than 1 /HPF [facility] Blood specimen (specimen) 09/11/2020 5:36 AM EST 09/11/2020 6:02 AM EST Narrative Resulting Agency Comment Spec In Lab Carol Reyna MD HEMATOLOGY ORDERABLES [facility] [place] [address] * (ABNORMAL) Hemoglobin A1c (09/11/2020 5:36 AM EST) Hemoglobin A1C 8.3(H) 4.3 - 5.6 % [facility] Comment: Reference Range: 4.3 - [...] Mellitus, Diabetes Care 2013; 36: Suppl. 1, S67-55 Est Avg Gluc See note mg/dL [facility] Comment: Estimated Average Glucose not [...] into estimated average glucose values. ??Diabetes Care 2008:31(8):7982-5210. Blood specimen (specimen) 09/11/2020 5:36 AM EST 09/11/2020 6:02 AM EST Narrative Resulting Agency Comment Spec In Lab Amarilys Cerna MD CHEMISTRY ORDERABLES Performing Organization Address [facility] [place]/[facility] de Phone Number [facility] [place] [address] * Peripheral Smear Review (09/11/2020 5:36 AM EST) Periph Smear Rev See Comment [facility] Comment: When completed by the Pathologist, report [id number] will display under Hematopathology Reports. Blood specimen (specimen) 09/11/2020 5:36 AM EST 09/11/2020 6:02 AM EST Narrative Resulting Agency Comment Spec In Lab Amarilys Cerna MD HEMATOLOGY ORDERABLE S Performing Organization Address [facility] [place]/[facility] Co de Phone Number [facility] [place] [address] * Differential, Automated (09/11/2020 5:36 AM EST) Neutrophils % 63.0 % [facility] Neutr Abs (ANC) 4.84 1.70 - 6.10 x10(3)/[facility] Lymphocytes % 23.9 % [facility] Lymphocytes Abs 1.8 0.9 - 3.2 x10(3)/[facility] Monocytes % 8.7 % [facility] Monocyte Abs 0.7 0.3 - 0.9 x10(3)/[facility] Eosinophils % 3.0 % [facility] Eosinophils Abs 0.2 0.0 - 0.4 x10(3)/[facility] Basophils % 0.9 % [facility] Basophils Abs 0.1 0.0 - 0.1 x10(3)/[facility] Immature Gran % 0.50 % [facility] Comment: Immature granulocytes(IG's)percentage and absolute count will include metamyelocytes, myelocytes, and promyelocytes. Blood smears from CBCs yielding IG's will be scanned manually for concordance. If this scan disagrees with the automated IG or if promyelocytes are noted, a manual differential will be performed. Nanci Gran Abs 0.04 0.00 - 0.04 x10(3)/[facility] Blood specimen (specimen) 09/11/2020 5:36 AM EST 09/11/2020 6:02 AM EST Narrative Resulting Agency Comment Spec In Lab Carol Reyna MD HEMATOLOGY ORDERABLES [facility] [place] [address] * (ABNORMAL) Hemogram (09/11/2020 5:36 AM EST) Pathologist [facility] WBC 7.7 4.0 - 9.5 x10(3)/[facility] RBC 3.95(L) 4.00 - 5.21 x10(6)/[facility] Hemoglobin 8.4(L) 11.7 - 15.5 gm/dL [facility] Hematocrit 27.2(L) 35.7 - 45.8 % [facility] MCV 68.9(L) 82.6 - 94.4 [facility] MCH 21.3(L) 27.1 - 32.0 pg [facility] MCHC 30.9(L) 31.7 - 35.0 gm/dL [facility] Platelets 290 145 - 357 x10(3)/[facility] RDWSD 48.3(H) 37.0 - 46.0 [facility] RDWCV 19.8(H) 11.5 - 14.1 % [facility] MPV 9.9 7.6 - 12.9 [facility] nRBC % Auto 0.5 % [facility] nRBC Abs Auto 0.040(H) 0.000 - 0.000 x10(3)/[facility] Blood specimen (specimen) 09/11/2020 5:36 AM EST 09/11/2020 6:02 AM EST Narrative Resulting Agency Comment Spec In Lab Carol Reyna MD HEMATOLOGY ORDERABLES Performing Organization Address City/[facility]/ZIP Co de Phone Number [facility] [place] [address] * Magnesium (09/11/2020 5:36 AM EST) Magnesium 0.82 0.69 - 1.07 mmol/L [facility] Blood specimen (specimen) 09/11/2020 5:36 AM EST 09/11/2020 6:02 AM EST Narrative Resulting Agency Comment Spec In Lab Amarilys Cerna MD CHEMISTRY ORDERABLES Performing Organization Address City/[facility]/ZIP Co de Phone Number [facility] [place] [address] * (ABNORMAL) Hepatic Function Panel (09/11/2020 5:36 AM EST) Total Protein 6.8 6.1 - 8.0 gm/dL [facility] Albumin 4.4 3.2 - 5.2 gm/dL [facility] AST 16 0 - 30 unit/L [facility] ALT 16 0 - 30 unit/L [facility] Alk Phos 123(H) 35 - 105 unit/L [facility] Total Bilirubin 2.6(H) 0.2 - 1.3 mg/dL [facility] Comment:result rechecked-[place] Bili, Direct 0.2 0.0 - 0.3 mg/dL [facility] Blood specimen (specimen) 09/11/2020 5:36 AM EST 09/11/2020 6:02 AM EST Narrative Resulting Agency Comment Spec In Lab Amarilys Cerna MD CHEMISTRY ORDERABLES [facility] [place] [address] * (ABNORMAL) BMP w/fasting Glucose (09/11/2020 5:36 AM EST) Glucose Fasting 195(H) 65 - 99 mg/dL [facility] Comment: ?Fasting* Glucose Interpretive Criteria Normal ?65-99 mg/dL Impaired Fasting glucose ?100-125 mg/dL Consistent with Diabetes Mellitus ? >or= 126 mg/dL *Fasting is defined as no caloric intake for at least 8 hours In the absence of unequivocal hyperglycemia a plasma glucose value of >or= 126 mg/dL should be repeated on a subsequent day. Diagnosis and Classification of Diabetes Mellitus, Position Statement from the [place] [employer]. ??Diabetes Care, Volume 33, Supplement 1, Aug 2009 BUN 13 8 - 18 mg/dL [facility] Creatinine 0.90 0.70 - 1.20 mg/dL [facility] Sodium 140 135 - 145 mmol/L [facility] Potassium 3.2(L) 3.5 - 5.0 mmol/L [facility] Comment: Please note: ??Patients with WBC >100,000 may have falsely elevated Potassium levels. ??For accurate Potassium quantification in these patients send serum separator tube (gold top) for subsequent determinations. ??Contact the Clinical Chemistry Laboratory if there are any questions. Chloride 101 98 - 107 mmol/L [facility] CO2 27 22 - 31 mmol/L [facility] Anion Gap 12 5 - 15 mmol/L [facility] Calcium 9.1 8.5 - 10.5 mg/dL [facility] Estimated GFR 60 >=60 mL/min/1. 73 m?? [facility] Comment: This patient? s estimated glomerular filtration rate (eGFR) is between 60 mL/min/1.73 m2 (patients with less muscle mass) and 70 mL/min/1.73 m2 (patients with more muscle mass) [...] in addition to eGFR. Blood specimen (specimen) 09/11/2020 5:36 AM EST 09/11/2020 6:02 AM EST Narrative Resulting Agency Comment Spec In Lab Amarilys Cerna MD CHEMISTRY ORDERABLES [facility] [place] [address] * (ABNORMAL) APTT (09/11/2020 5:36 AM EST) PTT 24(L) 25 - 37 sec [facility] Comment: The PTT is NOT appropriate for heparin monitoring. Use the Anti-Xa level for heparin monitoring (HEP UFH) or LMWH monitoring (HEP LMW). A PTT less than 37 seconds generally indicates adequate hemostasis. Blood specimen (specimen) 09/11/2020 5:36 AM EST 09/11/2020 6:02 AM EST Narrative Resulting Agency Comment Spec In Lab Amarilys Cerna MD HEMATOLOGY ORDERABLE S Performing Organization Address [facility] de Phone Number [facility] [place] [address] * Prothrombin Time (09/11/2020 5:36 AM EST) PT 12.5 9.4 - 12.5 sec [facility] INR 1.1 [facility] Comment: An INR <2.0 indicates [...] be appropriate depending on clinical circumstances. Blood specimen (specimen) 09/11/2020 5:36 AM EST 09/11/2020 6:02 AM EST Narrative Resulting Agency Comment Spec In Lab Amarilys Cerna MD HEMATOLOGY ORDERABLE S Performing Organization Address [facility] de Phone Number [facility] [place] [address] * Smear Review Report (09/11/2020 5:30 AM EST) Smear Review Report [id number] ? Location: [facility]; 34; B The signing pathologist has (i) examined the relevant preparation(s) for the specimen(s) and (ii) rendered or confirmed the diagnosis(es). . ? Smear Review DIAGNOSIS PERIPHERAL BLOOD, SMEAR: Moderate hypochromic microcytic anemia (see discussion) Electronically signed by: ??Raymundo Peña MD Verified: ??09/11/2020 ?Hematopathologist Performed at: ??-[facility] Dept. of Pathology, [place], [place] DISCUSSION This blood film is requested post PRBC transfusion. Per clinical notes, the admission Hb was 5.4g/dL. The morphologic findings are nonspecific, but no increase in schistocytes or features of dyspoiesis are appreciated. Factors which could contribute to a microcytic anemia may include blood loss, nutritional deficits, chronic inflammation, infection, EtOH/toxin exposures, kidney disease, or medication effect. ADDITIONAL STUDIES WBC 7.7K/uL, RBC 4.0M/uL, HGB 8.4g/dL, MCV 68.9fL, RDW 19.8%, PLT 290K/uL There is a moderate hypochromic microcytic anemia. Anisopoikilocytosis is increased, and hypochromic microcytes, elliptocytes, target cells, and occasional teardrop cells are seen. Polychromasia is not significantly increased. The total leukocyte count is normal, and all relative and absolute leukocyte-subset counts are within reference limits. The neutrophils are mostly mature and without significant left- shift. Remaining leukocyte morphology is generally unremarkable. The platelet counts and morphology are normal. CLINICAL INFORMATION An 80 year old woman for whom smear review was requested to evaluate cytopenia. The patient is admitted for anemia of unclear etiology. 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 [facility] 09/11/2020 5:30 AM EST Carol Reyna MD PATHOLOGY/ CYTOLOGY ORDERABLES [facility] [place] [address] * (ABNORMAL) POCT Glucose (09/11/2020 5:07 AM EST) POC Glucose 210(H) 65 - 199 mg/dL [facility] Comment: Supplemental ranges: <140 mg/dL before meals <180 mg/dL all other times of the day Blood specimen (specimen) 09/11/2020 5:07 AM EST 09/11/2020 5:07 AM EST Amarilys Cerna MD POINT OF CARE TEST O ISAIAH Performing Organization Address [facility] Co de Phone Number [facility] [place] [place] [address] * Transfuse RBC (09/11/2020 4:45 AM EST) Amarilys Cerna MD NURSING TREATMENT OR DERABLES - BLOOD ADMIN * Transfuse RBC (09/11/2020 12:04 AM EST) Eamon Moser MD NURSING TREATMENT ORDERABLES - BLOOD ADMIN * (ABNORMAL) POCT Glucose (09/10/2020 10:45 PM EST) POC Glucose 225(H) 65 - 199 mg/dL [facility] Comment: Supplemental ranges: <140 mg/dL before meals <180 mg/dL all other times of the day Blood specimen (specimen) 09/10/2020 10:45 PM EST 09/10/2020 10:45 PM EST Amarilys Cerna MD POINT OF CARE TEST O ISAIAH Performing Organization Address [facility] Co de Phone Number [facility] [place] [address] * Prepare RBC (09/10/2020 10:40 PM EST) Dispensed? Yes [facility] Blood specimen (specimen) 09/10/2020 10:40 PM EST 09/10/2020 10:46 PM EST Narrative Resulting Agency Comment Spec In Lab Amarilys Cerna MD BLOOD BANK PRODUCT O ISAIAH Performing Organization Address City/[facility]/ZIP Co de Phone Number [facility] [place] [address] * COVID-19 PCR (09/10/2020 9:44 PM EST) SARS-CoV-2 RNA PCR Not Detected Not Detected [facility] Comment: This result should be interpreted in combination with the clinical observations, patient history and epidemiological information. For testing of asymptomatic individuals, assay performance characteristics and clinical utility have not been evaluated. Testing for SARS-CoV-2 (Severe acute respiratory syndrome coronavirus 2, formerly known as 2019 novel coronavirus or 2019-nCoV) to aid in the diagnosis of COVID-19 is performed using the Simplexa COVID-19 Direct Assay by [employer] as authorized by the FDA issued Emergency Use Authorization (EUA). This assay is intended for In-vitro Diagnostic (IVD) use with nasopharyngeal swabs collected from individuals meeting the CDC criteria for testing. The assay is performed based on the instructions for use and additional guidance provided by the FDA. Testing is performed in the Microbiology Laboratory within the Department of Pathology and Laboratory Medicine at [facility], certified under the Clinical Laboratory Improvement Amendments of 1988 (CLIA), 42 U.S.C. section 263a, to perform high complexity tests. Assay performance has been verified according to clinical laboratory regulatory requirements. Test results are provided above. A result of Not Detected indicates that the viral RNA target is not present but does not preclude SARS-CoV-2 infection. False negative results may occur if a specimen is improperly collected, transported or handled; if amplification inhibitors are present; or if inadequate numbers of viral particles are present in the specimen. A result of Detected suggests a current or recent infection and the patient is presumed to be infected. Positive and negative predictive values for this test are highly dependent on disease prevalence. A result of Invalid indicates the inability to conclusively determine the presence or absence of SARS-CoV-2 RNA in the sample which can be due to a variety of factors. Recollection is recommended in the case of an invalid result. CDC COVID-19 criteria for testing on human specimens and clinical management guidance information are available at the CDC Coronavirus Disease 2019 (COVID-19) webpage under Information for Healthcare Professionals (https://www.cdc.gov/coronavirus/2019-ncov/hcp/index.html). 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 Nasopharyngeal swab (specimen) 09/10/2020 9:44 PM EST 09/10/2020 10:03 PM EST Comment:Symptoms->Surveillan ce Narrative Resulting Agency Comment Spec In Lab Eamon Moser MD MICROBIOLOGY - GE NERAL ORDERABLES Performing Organization Address [facility] [place]/[facility] Co de Phone Number [facility] [place] [address] * Prepare RBC (09/10/2020 7:40 PM EST) Dispensed? Yes [facility] Blood specimen (specimen) 09/10/2020 7:40 PM EST 09/10/2020 7:40 PM EST Eamon Moser MD BLOOD BANK PRODUC T ORDERABLES Performing Organization Address [facility] Phone Number [facility] [place] [address] * Differential, Automated (09/10/2020 7:25 PM EST) Neutrophils % 63.6 % [facility] Neutr Abs (ANC) 4.04 1.70 - 6.10 x10(3)/[facility] Lymphocytes % 24.1 % [facility] Lymphocytes Abs 1.5 0.9 - 3.2 x10(3)/[facility] Monocytes % 8.8 % [facility] Monocyte Abs 0.6 0.3 - 0.9 x10(3)/[facility] Eosinophils % 2.4 % [facility] Eosinophils Abs 0.2 0.0 - 0.4 x10(3)/[facility] Basophils % 0.8 % [facility] Basophils Abs 0.0 0.0 - 0.1 x10(3)/[facility] Immature Gran % 0.30 % [facility] Comment: Immature granulocytes(IG's)percentage and absolute count will include metamyelocytes, myelocytes, and promyelocytes. Blood smears from CBCs yielding IG's will be scanned manually for concordance. If this scan disagrees with the automated IG or if promyelocytes are noted, a manual differential will be performed. Nanci Gran Abs 0.02 0.00 - 0.04 x10(3)/[facility] Blood specimen (specimen) 09/10/2020 7:25 PM EST 09/10/2020 7:36 PM EST Narrative Resulting Agency Comment Spec In Lab Osito Calabrese Jr., MD HEMATOLOGY ORDERA BLES [facility] [place] [address] * (ABNORMAL) Hemogram (09/10/2020 7:25 PM EST) WBC 6.4 4.0 - 9.5 x10(3)/mc L [facility] RBC 2.75(L) 4.00 - 5.21 x10(6)/mc L [facility] Hemoglobin 5.2(Critic al) 11.7 - 15.5 gm/dL [facility] Comment: This result has been called to ION SALAZAR by JOB GAYTAN on 09 10 2020 at 2030, and has been read back. Hematocrit 18.2(L) 35.7 - 45.8 % [facility] MCV 66.2(L) 82.6 - 94.4 fL [facility] MCH 18.9(L) 27.1 - 32.0 pg [facility] MCHC 28.6(L) 31.7 - 35.0 gm/dL [facility] Platelets 264 145 - 357 x10(3)/mc L [facility] RDWSD 41.0 37.0 - 46.0 fL [facility] RDWCV 17.3(H) 11.5 - 14.1 % [facility] MPV 10.1 7.6 - 12.9 fL [facility] nRBC % Auto 0.5 % [facility] nRBC Abs Auto 0.030(H) 0.000 - 0.000 x10(3)/mc L [facility] Blood specimen (specimen) 09/10/2020 7:25 PM EST 09/10/2020 7:36 PM EST Narrative Resulting Agency Comment Spec In Lab Osito Calabrese Jr., MD HEMATOLOGY ORDERA BLES Performing Organization Address [facility] Co de Phone Number [facility] [place] [address] * (ABNORMAL) APTT (09/10/2020 7:25 PM EST) PTT 24(L) 25 - 37 sec [facility] Comment: The PTT is NOT appropriate for heparin monitoring. Use the Anti-Xa level for heparin monitoring (HEP UFH) or LMWH monitoring (HEP LMW). A PTT less than 37 seconds generally indicates adequate hemostasis. Blood specimen (specimen) 09/10/2020 7:25 PM EST 09/10/2020 7:36 PM EST Narrative Resulting Agency Comment Spec In Lab Eamon Moser MD HEMATOLOGY ORDERA BLES Performing Organization Address City/[facility]/ZIP Co de Phone Number [facility] [place] [address] * (ABNORMAL) Prothrombin Time (09/10/2020 7:25 PM EST) PT 13.8(H) 9.4 - 12.5 sec [facility] INR 1.2 [facility] Comment: An INR <2.0 indicates [...] be appropriate depending on clinical circumstances. Blood specimen (specimen) 09/10/2020 7:25 PM EST 09/10/2020 7:36 PM EST Narrative Resulting Agency Comment Spec In Lab Eamon Moser MD HEMATOLOGY ORDERA BLES Performing Organization Address [facility]/ZIP Co de Phone Number [facility] [place] [address] * ABORH Recheck Status (09/10/2020 6:15 PM EST) ABORH Type Recheck Completed [facility] Blood specimen (specimen) 09/10/2020 6:15 PM EST 09/10/2020 6:37 PM EST Narrative Resulting Agency Comment Spec In Lab Osito Calabrese Jr., MD BLOOD BANK LAB OR DERABLES Performing Organization Address [facility] Co de Phone Number [facility] [place] [address] * Antibody screen (09/10/2020 6:15 PM EST) Ab Screen Interp Negative [facility] Expires at [id number] on: 09/13/2020 [facility] Blood specimen (specimen) 09/10/2020 6:15 PM EST 09/10/2020 6:37 PM EST Narrative Resulting Agency Comment Spec In Lab Osito Calabrese Jr., MD BLOOD BANK LAB OR DERABLES Performing Organization Address [facility] [place]/[facility] Co de Phone Number [facility] [place] [address] * ABO/Rh Typing (09/10/2020 6:15 PM EST) ABORH Type O Pos [facility] Blood specimen (specimen) 09/10/2020 6:15 PM EST 09/10/2020 6:37 PM EST Narrative Resulting Agency Comment Spec In Lab Osito Calabrese Jr., MD BLOOD BANK LAB OR DERABLES [facility] [place] [address] * SCAN DOC: LAB (09/10/2020 12:00 AM EST) Narrative 09/10/2020 12:00 AM EST Ordered by an unspecified provider. 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 Unspecified cardiovascular disease Atrial fibrillation--- paroxysmal Atrial fibrillation S/P balloon aortic valvuloplasty 06/24/2020 Other postprocedural status Esophagitis, erosive Other esophagitis Aortic stenosis, severe Aortic valve disorders Aortic stenosis, severe Aortic valve disorders S/P TAVR (transcatheter aortic valve replacement) documented in this encounter Admitting Diagnoses Diagnosis Anemia Anemia, unspecified Aortic stenosis, severe Aortic valve disorders documented in this encounter Administered Medications Inactive Administered Medications - up to 3 most recent administrations Medication Order MAR Action Action Date Dose Rate Site acetaminophen (Tylenol) tablet 650 mg 650 mg, Oral, EVERY 4 HOURS PRN, Starting on 09/12/20 at 0107, Until 09/18/20 at 1608, Pain, Headaches, Maximum dose of acetaminophen is 4000 mg from all sources in 24 hours. When ordered for pain, acetaminophen should be given even when other ordered pain medications are indicated. , Routine Given 09/17/2020 11:21 AM EST 650 mg Given 09/17/2020 3:22 AM EST 650 mg Given 09/16/2020 8:36 AM EST 650 mg AMIOdarone (Cordarone; Pacerone) tablet 200 mg 200 mg, Oral, 2 TIMES DAILY, First dose on Sun09/11/20 at 0900, Until Discontinued, Routine Given 09/13/2020 8:36 AM EST 200 mg Given 09/12/2020 8:40 PM EST 200 mg Given 09/12/2020 8:24 AM EST 200 mg AMIOdarone (Cordarone; Pacerone) tablet 200 mg 200 mg, Oral, DAILY, First dose (after last modification) on Sun09/14/20 at 0900, Until Discontinued, Routine Given 09/18/2020 8:21 AM EST 200 mg Given 09/17/2020 8:09 AM EST 200 mg Given 09/16/2020 8:37 AM EST 200 mg baclofen (Lioresal) tablet 10 mg 10 mg, Oral, ONCE, 1 dose, On Sun09/13/20 at 0515, For muscle spasm - OK to HOLD if pain improves w/lidocaine patch, acetaminophen, heat or cold packs, Routine Given 09/13/2020 4:32 AM EST 10 mg baclofen (Lioresal) tablet 5 mg 5 mg, Oral, ONCE, 1 dose, On 09/12/20 at 0600, For muscle spasm - OK to HOLD if pain improves w/lidocaine patch, acetaminophen, heat or cold packs, Routine Given 09/12/2020 6:09 AM EST 5 mg baclofen (Lioresal) tablet 5 mg 5 mg, Oral, ONCE, 1 dose, On 09/12/20 at 1830, For muscle spasm - OK to HOLD if pain improves w/lidocaine patch, acetaminophen, heat or cold packs, Routine Given 09/12/2020 5:41 PM EST 5 mg clopidogreL (Plavix) tablet 75 mg 75 mg, Oral, DAILY, First dose on Sun09/11/20 at 0900, Until Discontinued, Routine Given 09/18/2020 8:20 AM EST 75 mg Given 09/17/2020 8:09 AM EST 75 mg Given 09/16/2020 8:36 AM EST 75 mg dextrose 10% infusion 250 mL, at 1,000 mL/hr, Intravenous, EVERY 30 MIN PRN, Starting on 09/11/20 at 0402, Until 09/18/20 at 1608, For BG 50-70 mg/dL: Oral treatment preferred:?? If able to drink, give 120 mL Juice or Regular (not diet) soda OR If NPO, give 15 gram glucose 40% oral gel massaged into buccal mucosa OR if unconscious or uncooperative, give 25 gram (250 mL) Dextrose 10% IV over 15 minutes per protocol OR, if no IV access, 1 mg Glucagon IM. For BG less than 50 mg/dL: Oral treatment preferred:?? If able to drink, give 240 mL Juice or Regular (not diet) soda OR If NPO, give 30 gram glucose 40% oral gel massaged in buccal mucosa OR if unconscious or uncooperative, give 25 gram (250 mL) Dextrose 10% IV over 15 minutes per protocol OR, if no IV access, 1 mg Glucagon IM. Recheck BG in 30 minutes. May repeat juice/soda, gel, dextrose or glucagon once per episode. For persistent hypoglycemia, consider longer-acting treatment for the duration of the active insulin. ferrous gluconate (Fergon) tablet 324 mg 324 mg, Oral, 2 TIMES DAILY, First dose (after last modification) on Sun09/12/20 at 2100, Until Discontinued Given 09/18/2020 8:22 AM EST 324 mg Given 09/17/2020 8:23 PM EST 324 mg Given 09/17/2020 8:08 AM EST 324 mg furosemide (Lasix) (10 mg/mL) injection 40 mg 40 mg, Intravenous, EVERY 4 HOURS SCHEDULED, 2 doses, First dose (after last modification) on Sun09/10/20 at 2345, Last dose on 09/11/20 at 0400, Please give after each unit transfusion Given 09/11/2020 5:00 AM EST 40 mg Given 09/10/2020 11:51 PM EST 40 mg glucagon (human recombinant) injection SolR 1 mg 1 mg, Intramuscular, EVERY 30 MIN PRN, Starting on 09/11/20 at 0402, Until 09/18/20 at 1608, Low blood sugar, For BG 50-70 mg/dL: Oral treatment preferred:?? If able to drink, give 120 mL Juice or Regular (not diet) soda OR If NPO, give 15 gram glucose 40% oral gel massaged into buccal mucosa OR if unconscious or uncooperative, give 25 gram (250 mL) Dextrose 10% IV over 15 minutes per protocol OR, if no IV access, 1 mg Glucagon IM. For BG less than 50 mg/dL: Oral treatment preferred:?? If able to drink, give 240 mL Juice or Regular (not diet) soda OR If NPO, give 30 gram glucose 40% oral gel massaged in buccal mucosa OR if unconscious or uncooperative, give 25 gram (250 mL) Dextrose 10% IV over 15 minutes per protocol OR, if no IV access, 1 mg Glucagon IM. Recheck BG in 30 minutes. May repeat juice/soda, gel, dextrose or glucagon once per episode. For persistent hypoglycemia, consider longer-acting treatment for the duration of the active insulin., Routine glucose (GLUTOSE) 40% oral geL 15-30 g, Buccal, EVERY 30 MIN PRN, Starting on 09/11/20 at 0402, Until 09/18/20 at 1608, Low blood sugar, For BG 50-70 mg/dL: Oral treatment preferred:?? If able to drink, give 120 mL Juice or Regular (not diet) soda OR If NPO, give 15 gram glucose 40% oral gel massaged into buccal mucosa OR if unconscious or uncooperative, give 25 gram (250 mL) Dextrose 10% IV over 15 minutes per protocol OR, if no IV access, 1 mg Glucagon IM. For BG less than 50 mg/dL: Oral treatment preferred:?? If able to drink, give 240 mL Juice or Regular (not diet) soda OR If NPO, give 30 gram glucose 40% oral gel massaged in buccal mucosa OR if unconscious or uncooperative, give 25 gram (250 mL) Dextrose 10% IV over 15 minutes per protocol OR, if no IV access, 1 mg Glucagon IM. Recheck BG in 30 minutes. May repeat juice/soda, gel, dextrose or glucagon once per episode. For persistent hypoglycemia, consider longer-acting treatment for the duration of the active insulin. 1 tube contains 15 grams of glucose (net weight of tube = 37.5 grams., Routine hydrALAZINE (Apresoline) (20 mg/mL) injection 10 mg 10 mg, Intravenous, EVERY 2 HOURS PRN, Starting on Noreen 09/16/20 at 0823, Until 09/17/20 at 0637, High Blood Pressure, for SBP >140 Given 09/17/2020 3:34 AM EST 10 mg Given 09/17/2020 12:10 AM EST 10 mg Given 09/16/2020 9:09 PM EST 10 mg hydrALAZINE (Apresoline) (20 mg/mL) injection 10 mg 10 mg, Intravenous, EVERY 2 HOURS PRN, Starting on Sun09/17/20 at 0637, Until 09/18/20 at 1608, High Blood Pressure, for SBP >160 hydrALAZINE (Apresoline) (20 mg/mL) injection 5 mg 5 mg, Intravenous, EVERY 2 HOURS PRN, Starting on 09/11/20 at 0329, Until Noreen 09/16/20 at 0823, High Blood Pressure, for SBP >170 Given 09/11/2020 4:09 AM EST 5 mg insulin glargine (Lantus) (100 unit/mL) subcutaneous injection vial 10 Units 10 Units, Subcutaneous, DAILY, First dose on 09/11/20 at 0900, Until Discontinued, Routine Given 09/18/2020 8:20 AM EST 10 Units Given 09/17/2020 8:07 AM EST 10 Units Given 09/16/2020 8:44 AM EST 10 Units insulin lispro (HumaLOG) (100 unit/mL) subcutaneous injection vial 1-6 Units 1-6 Units, Subcutaneous, EVERY 4 HOURS SCHEDULED, First dose on 09/11/20 at 0500, Until Discontinued, CORRECTION BOLUS [1-6 Units] Moderate Sliding Scale: Correction factor 20 (1 unit of insulin is expected to drop the glucose 20 mg/dL) BG 140 - 160 Give 1 unit BG 161 - 180 Give 2 units BG 181 - 200 Give 3 units BG 201 - 220 Give 4 units BG 221 - 240 Give 5 units BG greater than 240, give 6 units and recheck BG in 2 hours. - If recheck BG is LESS than 240, give no insulin and resume schedule. - If recheck BG is GREATER than 240, give 6 units and repeat BG in 2 hours (no more than 3 times) & call for new insulin orders. DO NOT hold if NPO, unless specifically told to do so. Per Blood Glucose Monitoring Policy, re-check a BG of > 240 in 2 hours., Routine Given 09/18/2020 1:12 PM EST 5 Units Given 09/18/2020 8:20 AM EST 4 Units Given 09/18/2020 4:03 AM EST 1 Units iohexoL (Omnipaque) (350 mg/mL) injection solution 0-200 mL 0-200 mL, Intravenous, ONCE PRN, 1 dose, Starting on Sun09/13/20 at 0948, Until Sun09/14/20 at 1141, Per Protocol, Warning Vesicant/Irritant Medication , Radiology Contrast, Routine Given 09/14/2020 11:41 AM EST 96 mLs iron sucrose (Venofer) 300 mg in sodium chloride 0.9% 115 mL infusion 300 mg, Intravenous, ONCE, 1 dose, On Sun09/12/20 at 1700, Administer over 90 Minutes, Patients should be closely monitored for signs of hypersensitivity during and for at least 30 min after each administration. New Bag 09/12/2020 4:30 PM EST 300 mg 76.7 mL/hr iron sucrose (Venofer) 300 mg in sodium chloride 0.9% 115 mL infusion 300 mg, Intravenous, ONCE, 1 dose, On Sun09/13/20 at 0945, Administer over 90 Minutes, Patients should be closely monitored for signs of hypersensitivity during and for at least 30 min after each administration. New Bag 09/13/2020 9:49 AM EST 300 mg 76.7 mL/hr lidocaine (Lidoderm) 5 % topical patch 3 patch 3 patch, Transdermal, DAILY, First dose on 09/11/20 at 0415, Until Discontinued, Apply patch(es) for 12 hours, and then remove for 12 hours., Routine Patch Applied 09/18/2020 8:21 AM EST 3 patches 07- Back Lower (Left) Patch Applied 09/17/2020 8:08 AM EST 3 patches 06- Back Upper (Right) Patch Applied 09/14/2020 8:52 PM EST 3 patches 05- Back Upper (Left) lidocaine (Lidoderm) topical patch REMOVAL Transdermal, EVERY 24 HOURS, First dose on 09/11/20 at 2100, Until Discontinued, Remove lidocaine 5% patch lidocaine (Xylocaine) 1% (10 mg/mL) injection 3 mg 3 mg (0.3 mL), Subcutaneous, ONCE PRN, 1 dose, Starting on Sun09/15/20 at 0820, Until Sun09/15/20 at 1755, for discomfort with PIV insertion, Routine Given 09/15/2020 5:55 PM EST 3 mg Left Arm losartan (Cozaar) tablet 12.5 mg 12.5 mg, Oral, DAILY, First dose (after last modification) on Sun09/12/20 at 0915, Until Discontinued, Routine Given 09/13/2020 8:37 AM EST 12.5 mg Given 09/12/2020 9:12 AM EST 12.5 mg losartan (Cozaar) tablet 25 mg 25 mg, Oral, DAILY, First dose on Sun09/11/20 at 0530, Until Discontinued, Routine Given 09/11/2020 5:19 AM EST 25 mg losartan (Cozaar) tablet 25 mg 25 mg, Oral, DAILY, First dose (after last modification) on Sun09/14/20 at 0900, Until Discontinued, Routine Given 09/15/2020 8:52 AM EST 25 mg Given 09/14/2020 8:34 AM EST 25 mg losartan (Cozaar) tablet 25 mg 25 mg, Oral, DAILY, First dose on Sun09/17/20 at 0900, Until Discontinued, Routine Given 09/17/2020 8:08 AM EST 25 mg losartan (Cozaar) tablet 25 mg 25 mg, Oral, ONCE, 1 dose, On Sun09/17/20 at 1215, Routine Given 09/17/2020 12:08 PM EST 25 mg losartan (Cozaar) tablet 50 mg 50 mg, Oral, DAILY, First dose (after last modification) on Sun09/18/20 at 0900, Until Discontinued, Routine Given 09/18/2020 8:20 AM EST 50 mg magnesium sulfate 2 g in sterile water 50 mL infusion 2 g, Intravenous, ONCE, 1 dose, On Sun09/11/20 at 0900, Administer over 120 Minutes, Minimum infusion duration is 2 hours. New Bag 09/11/2020 8:49 AM EST 2 g 25 mL/hr metoprolol tartrate (Lopressor) tablet 25 mg 25 mg, Oral, EVERY 6 HOURS SCHEDULED, First dose (after last modification) on Sun09/12/20 at 1830, Until Discontinued, Hold if HR < 60 or SBP < 100, Routine Given 09/16/2020 6:56 AM EST 25 mg Given 09/15/2020 11:19 PM EST 25 mg Given 09/15/2020 6:42 PM EST 25 mg metoprolol tartrate (Lopressor) tablet 50 mg 50 mg, Oral, EVERY 6 HOURS SCHEDULED, First dose on 09/11/20 at 1200, Until Discontinued, Hold if HR < 60 or SBP < 100, Routine Given 09/12/2020 6:09 AM EST 50 mg Given 09/11/2020 12:34 PM EST 50 mg mupirocin (BACTROBAN) 2 % ointment Topical (Top), 2 TIMES DAILY, First dose on Sun09/15/20 at 1000, Until Discontinued, Apply small amount to each nostril two times daily Given 09/15/2020 8:13 PM EST Given 09/15/2020 11:34 AM EST ondansetron (pf) (Zofran) (2 mg/mL) injection 4 mg 4 mg, Intravenous, EVERY 8 HOURS PRN, Starting on Noreen 09/16/20 at 0823, Until 09/18/20 at 1608, Nausea, Routine Given 09/16/2020 2:19 PM EST 4 mg pantoprazole (Protonix) injection 40 mg 40 mg, Intravenous, 2 TIMES DAILY, First dose on Sun09/10/20 at 2345, Until Discontinued Given 09/13/2020 8:32 AM EST 4 0 mg Given 09/12/2020 8:39 PM EST 40 mg Given 09/12/2020 8:20 AM EST 40 mg pantoprazole EC (Protonix) tablet 40 mg 40 mg, Oral, 2 TIMES DAILY, First dose on Sun09/13/20 at 2100, Until Discontinued, DO NOT CRUSH OR OPEN, Routine Given 09/18/2020 8:20 AM EST 40 mg Given 09/17/2020 8:23 PM EST 40 mg Given 09/17/2020 8:09 AM EST 40 mg polyethylene glycoL (Miralax) packet 17 g 17 g, Oral, DAILY, First dose on 09/11/20 at 0900, Until Discontinued, Routine Given 09/17/2020 8:08 AM EST 17 g Given 09/12/2020 9:00 AM EST 17 g Given 09/11/2020 8:41 AM EST 17 g polyethylene glycoL (Miralax) packet 238 g 238 g, Oral, ONCE, 1 dose, On 09/11/20 at 1330, Start 2 hours afterward bisacodyl tablets. Mixed with 64 ounces of gatorade or pedialyte (do not use red or purple colored drinks). Give 8 ounces every 15-20 minutes until complete., Routine Given 09/11/2020 11:41 PM EST 238 g potassium chloride ER (K-Dur/Klor-Con) tablet 20 mEq 20 mEq, Oral, EVERY 4 HOURS PRN, Starting on 09/11/20 at 0402, Until Noreen 09/16/20 at 0921, hypokalemia, Administer for serum potassium (mMol/L) of 3.9 - 4 See instructions for Potassium Protocol in online policies., Routine Given 09/12/2020 6:00 PM EST 20 mEq potassium chloride ER (K-Dur/Klor-Con) tablet 40 mEq 40 mEq, Oral, EVERY 4 HOURS PRN, Starting on 09/11/20 at 0402, Until Noreen 09/16/20 at 0921, hypokalemia, Administer for serum potassium (mMol/L) of 3.6 - 3.8 See instructions for Potassium Protocol in online policies., Routine Given 09/11/2020 9:06 AM EST 40 mEq potassium chloride ER (K-Dur/Klor-Con) tablet 80 mEq 80 mEq, Oral, ONCE, 1 dose, On 09/11/20 at 2030, 20 mEq tablet may be dissolved in water for administration, Routine Given 09/11/2020 7:36 PM EST 80 mEq rosuvastatin (Crestor) tablet 20 mg 20 mg, Oral, EVERY EVENING, First dose on 09/11/20 at 1700, Until Discontinued, Routine Given 09/17/2020 4:49 PM EST 20 mg Given 09/16/2020 5:09 PM EST 20 mg Given 09/15/2020 6:44 PM EST 20 mg senna-docusate (Pericolace) 8.6-50 mg per tablet 2 tablet 2 tablet, Oral, DAILY, First dose on Noreen 09/16/20 at 2100, Until Discontinued, Post-op day 1, Routine Given 09/17/2020 8:22 PM EST 2 tablets sodium chloride 0.9 % (flush) flush 5 mL 5 mL, Intravenous, 2 TIMES DAILY, First dose on Sun09/15/20 at 0915, Until Discontinued, Routine Given 09/15/2020 8:17 PM EST 5 mLs Given 09/15/2020 9:15 AM EST 5 mLs sodium chloride 0.9 % (flush) flush 5 mL 5 mL, Intravenous, EVERY 8 HOURS, First dose on Noreen 09/16/20 at 1015, Until Discontinued, Routine Given 09/17/2020 10:57 AM EST 5 mLs Given 09/16/2020 5:15 PM EST 5 mLs Given 09/16/2020 10:36 AM EST 5 mLs documented in this encounter Active and Recently Administered Medications Times are shown in EST. Scheduled Medication Order 09/16/2020 09/17/2020 09/18/2020 AMIOdarone (Cordarone; Pacerone) tablet 200 mg 200 mg, Oral, DAILY, First dose (after last modification) on Sun09/14/20 at 0900, Until Discontinued, Routine 0837 (Given - Provider: Jos Santos RN) 0809 (Given - Provider: Ashley Santacruz RN) 0821 (Given - Provider: Ren Philippe RN) clopidogreL (Plavix) tablet 75 mg 75 mg, Oral, DAILY, First dose on 09/11/20 at 0900, Until Discontinued, Routine 0836 (Given - Provider: Thanh Orlando RN) 0809 (Given - Provider: Ashley Santacruz RN) 0820 (Given - Provider: Ren Philippe RN) ferrous gluconate (Fergon) tablet 324 mg 324 mg, Oral, 2 TIMES DAILY, First dose (after last modification) on Sun09/12/20 at 2100, Until Discontinued 0836 (Given - Provider: Thanh Orlando RN)2055 (Given - Provider: Juan Ballesteros RN) 0808 (Given - Provider: Ashley Santacruz RN)2022 (Given - Provider: Skyla Zuniga RN) 08 (Given - Provider: Ren Philippe RN) insulin glargine (Lantus) (100 unit/mL) subcutaneous injection vial 10 Units 10 Units, Subcutaneous, DAILY, First dose on 09/11/20 at 0900, Until Discontinued, Routine 0844 (Given - Provider: Thanh Orlando RN) 0807 (Given - Provider: Ashley Santacruz, LYLA) 0820 (Given - Provider: Ren Philippe RN) insulin lispro (HumaLOG) (100 unit/mL) subcutaneous injection vial 1-6 Units(Linked Group 1) 1-6 Units, Subcutaneous, EVERY 4 HOURS SCHEDULED, First dose on 09/11/20 at 0500, Until Discontinued, CORRECTION BOLUS [1-6 Units] Moderate Sliding Scale: Correction factor 20 (1 unit of insulin is expected to drop the glucose 20 mg/dL) BG 140 - 160 Give 1 unit BG 161 - 180 Give 2 units BG 181 - 200 Give 3 units BG 201 - 220 Give 4 units BG 221 - 240 Give 5 units BG greater than 240, give 6 units and recheck BG in 2 hours. - If recheck BG is LESS than 240, give no insulin and resume schedule. - If recheck BG is GREATER than 240, give 6 units and repeat BG in 2 hours (no more than 3 times) & call for new insulin orders. DO NOT hold if NPO, unless specifically told to do so. Per Blood Glucose Monitoring Policy, re-check a BG of > 240 in 2 hours., Routine 0400 (Not Given - Provider: Juan Ballesteros RN - Reason: Order parameters not met)0800 (Not Given - Provider: Jos Santos RN - Reason: Order parameters not met)1200 (Given - Provider: Fang Kerr RN)1709 (Given - Provider: Fang Kerr RN)2058 (Given - Provider: Juan Ballesteros RN) 0005 (Given - Provider: Juan Ballesteros RN)0331 (Given - Provider: Juan Ballesteros RN)0807 (Given - Provider: Ashley Santacruz, LYLA)1208 (Given - Provider: Ashley Santacruz RN)1649 (Given - Provider: Ashley Santacruz RN)2023 (Given - Provider: Skyla Zuniga RN) 0058 (Given - Provider: Skyla Zuniga RN)0403 (Given - Provider: Skyla Zuniga RN)0820 (Given - Provider: Ren Philippe RN)1312 (Given - Provider: Ren Philippe RN) lidocaine (Lidoderm) 5 % topical patch 3 patch(Linked Group 2) 3 patch, Transdermal, DAILY, First dose on 09/11/20 at 0415, Until Discontinued, Apply patch(es) for 12 hours, and then remove for 12 hours., Routine 1035 (Not Given - Provider: Jos Santos RN - Reason: Order parameters not met) 0808 (Patch Applied - Provider: Ashley Santacruz RN) 0821 (Patch Applied - Provider: Ren Philippe RN) lidocaine (Lidoderm) topical patch REMOVAL(Linked Group 2) Transdermal, EVERY 24 HOURS, First dose on 09/11/20 at 2100, Until Discontinued, Remove lidocaine 5% patch 2100 (Patch Not Removed (add comment) - Provider: Juan Ballesteros RN - Comment: not applied) 2100 (Patch Removed - Provider: Skyla Zuniga RN) losartan (Cozaar) tablet 25 mg (CANCELED) 25 mg, Oral, DAILY, First dose on Sun09/17/20 at 0900, Until Discontinued, Routine 0808 (Given - Provider: Ashley Santacruz RN) losartan (Cozaar) tablet 25 mg (COMPLETED) 25 mg, Oral, ONCE, 1 dose, On Sun09/17/20 at 1215, Routine 1208 (Given - Provider: Ashley Santacruz RN) losartan (Cozaar) tablet 50 mg 50 mg, Oral, DAILY, First dose (after last modification) on 09/18/20 at 0900, Until Discontinued, Routine 0820 (Given - Provider: Ren Philippe RN) magnesium hydroxide (Milk of Magnesia) (240 mg/mL) oral liquid 10 mL 10 mL, Oral, DAILY, First dose on Sun09/17/20 at 0900, Until Discontinued, Post-op day 2. Do not use with renal insufficiency. 10 mL concentrate = 30 mL regular, Routine 0900 (Not Given - Provider: Ashley Santacruz RN - Reason: Patient/family refused) 0900 (Not Given - Provider: Ren Philippe RN - Reason: Patient/family refused) metoprolol tartrate (Lopressor) tablet 25 mg (CANCELED) 25 mg, Oral, EVERY 6 HOURS SCHEDULED, First dose (after last modification) on Sun09/12/20 at 1830, Until Discontinued, Hold if HR < 60 or SBP < 100, Routine 0656 (Given - Provider: Luci Boyle RN) pantoprazole EC (Protonix) tablet 40 mg 40 mg, Oral, 2 TIMES DAILY, First dose on Sun09/13/20 at 2100, Until Discontinued, DO NOT CRUSH OR OPEN, Routine 0837 (Given - Provider: Thanh Orlando, RN)205 (Given - Provider: Juan Ballesteros, LYLA) 0809 (Given - Provider: Ashley Santacruz, LYLA)2022 (Given - Provider: Skyla Zuniga, LYLA) 08 (Given - Provider: Ren Philippe RN) polyethylene glycoL (Miralax) packet 17 g 17 g, Oral, DAILY, First dose on Sun09/11/20 at 0900, Until Discontinued, Routine 0900 (Not Given - Provider: Thanh Orlando RN - Reason: Order parameters not met) 0808 (Given - Provider: Ashley Santacruz, LYLA) 0900 (Not Given - Provider: Ren Philippe RN - Reason: Patient/family refused) rosuvastatin (Crestor) tablet 20 mg 20 mg, Oral, EVERY EVENING, First dose on Sun09/11/20 at 1700, Until Discontinued, Routine 1709 (Given - Provider: Fang Kerr RN) 164 (Given - Provider: Ashley Santacruz, LYLA) senna-docusate (Pericolace) 8.6-50 mg per tablet 2 tablet 2 tablet, Oral, DAILY, First dose on Noreen 09/16/20 at 2100, Until Discontinued, Post-op day 1, Routine 2100 (Not Given - Provider: Juan Ballesteros, LYLA - Reason: Patient/family refused) 2021 (Given - Provider: Skyla Zuniga RN) sodium chloride 0.9 % (flush) flush 5 mL 5 mL, Intravenous, EVERY 8 HOURS, First dose on Noreen 09/16/20 at 1015, Until Discontinued, Routine 1036 (Given - Provider: Jos Santos RN)1715 (Given - Provider: Fang Kerr RN) 0215 (Not Given - Provider: Juan Ballesteros RN - Reason: See comment - Comment: pt sleeping)1057 (Given - Provider: Ashley Santacruz RN)1815 (Not Given - Provider: Skyla Zuniga RN - Reason: Patient/family refused) 0215 (Not Given - Provider: Skyla Zuniga RN - Reason: Patient/family refused)1015 (Due) PRN Medication Order 09/16/2020 09/17/2020 09/18/2020 acetaminophen (Tylenol) tablet 650 mg 650 mg, Oral, EVERY 4 HOURS PRN, Starting on 09/12/20 at 0107, Until 09/18/20 at 1608, Pain, Headaches, Maximum dose of acetaminophen is 4000 mg from all sources in 24 hours. When ordered for pain, acetaminophen should be given even when other ordered pain medications are indicated. , Routine 0836 (Given - Provider: Thanh Orlando RN) 0322 (Given - Provider: Juan Ballesteros RN)1121 (Given - Provider: Ashley Santacruz RN) bisacodyL (Dulcolax) suppository 10 mg 10 mg, Rectal, DAILY PRN, Starting on 09/18/20 at 0000, Until 09/18/20 at 1608, Constipation, Starting post-op day 3., Routine dextrose 10% infusion(Linked Group 3) 250 mL, at 1,000 mL/hr, Intravenous, EVERY 30 MIN PRN, Starting on 09/11/20 at 0402, Until 09/18/20 at 1608, For BG 50-70 mg/dL: Oral treatment preferred:?? If able to drink, give 120 mL Juice or Regular (not diet) soda OR If NPO, give 15 gram glucose 40% oral gel massaged into buccal mucosa OR if unconscious or uncooperative, give 25 gram (250 mL) Dextrose 10% IV over 15 minutes per protocol OR, if no IV access, 1 mg Glucagon IM. For BG less than 50 mg/dL: Oral treatment preferred:?? If able to drink, give 240 mL Juice or Regular (not diet) soda OR If NPO, give 30 gram glucose 40% oral gel massaged in buccal mucosa OR if unconscious or uncooperative, give 25 gram (250 mL) Dextrose 10% IV over 15 minutes per protocol OR, if no IV access, 1 mg Glucagon IM. Recheck BG in 30 minutes. May repeat juice/soda, gel, dextrose or glucagon once per episode. For persistent hypoglycemia, consider longer-acting treatment for the duration of the active insulin. glucagon (human recombinant) injection SolR 1 mg(Linked Group 3) 1 mg, Intramuscular, EVERY 30 MIN PRN, Starting on 09/11/20 at 0402, Until 09/18/20 at 1608, Low blood sugar, For BG 50-70 mg/dL: Oral treatment preferred:?? If able to drink, give 120 mL Juice or Regular (not diet) soda OR If NPO, give 15 gram glucose 40% oral gel massaged into buccal mucosa OR if unconscious or uncooperative, give 25 gram (250 mL) Dextrose 10% IV over 15 minutes per protocol OR, if no IV access, 1 mg Glucagon IM. For BG less than 50 mg/dL: Oral treatment preferred:?? If able to drink, give 240 mL Juice or Regular (not diet) soda OR If NPO, give 30 gram glucose 40% oral gel massaged in buccal mucosa OR if unconscious or uncooperative, give 25 gram (250 mL) Dextrose 10% IV over 15 minutes per protocol OR, if no IV access, 1 mg Glucagon IM. Recheck BG in 30 minutes. May repeat juice/soda, gel, dextrose or glucagon once per episode. For persistent hypoglycemia, consider longer-acting treatment for the duration of the active insulin., Routine glucose (GLUTOSE) 40% oral geL(Linked Group 3) 15-30 g, Buccal, EVERY 30 MIN PRN, Starting on 09/11/20 at 0402, Until 09/18/20 at 1608, Low blood sugar, For BG 50-70 mg/dL: Oral treatment preferred:?? If able to drink, give 120 mL Juice or Regular (not diet) soda OR If NPO, give 15 gram glucose 40% oral gel massaged into buccal mucosa OR if unconscious or uncooperative, give 25 gram (250 mL) Dextrose 10% IV over 15 minutes per protocol OR, if no IV access, 1 mg Glucagon IM. For BG less than 50 mg/dL: Oral treatment preferred:?? If able to drink, give 240 mL Juice or Regular (not diet) soda OR If NPO, give 30 gram glucose 40% oral gel massaged in buccal mucosa OR if unconscious or uncooperative, give 25 gram (250 mL) Dextrose 10% IV over 15 minutes per protocol OR, if no IV access, 1 mg Glucagon IM. Recheck BG in 30 minutes. May repeat juice/soda, gel, dextrose or glucagon once per episode. For persistent hypoglycemia, consider longer-acting treatment for the duration of the active insulin. 1 tube contains 15 grams of glucose (net weight of tube = 37.5 grams., Routine hydrALAZINE (Apresoline) (20 mg/mL) injection 10 mg (CANCELED) 10 mg, Intravenous, EVERY 2 HOURS PRN, Starting on Noreen 09/16/20 at 0823, Until Sun09/17/20 at 0637, High Blood Pressure, for SBP >140 2109 (Given - Provider: Juan Ballesteros RN) 0010 (Given - Provider: Juan Ballesteros RN)0334 (Given - Provider: Juan Ballesteros RN) hydrALAZINE (Apresoline) (20 mg/mL) injection 10 mg 10 mg, Intravenous, EVERY 2 HOURS PRN, Starting on Sun09/17/20 at 0637, Until 09/18/20 at 1608, High Blood Pressure, for SBP >160 lidocaine (Xylocaine) 1% (10 mg/mL) injection 3 mg 3 mg (0.3 mL), Subcutaneous, ONCE PRN, 1 dose, Starting on Noreen 09/16/20 at 0823, Until 09/18/20 at 1608, for discomfort with PIV insertion, Routine ondansetron (pf) (Zofran) (2 mg/mL) injection 4 mg 4 mg, Intravenous, EVERY 8 HOURS PRN, Starting on Noreen 09/16/20 at 0823, Until 09/18/20 at 1608, Nausea, Routine 1419 (Given - Provider: Fang Kerr RN) Linked Groups Order Group 1: POCT Fingerstick Glucose (CANCELED) Routine, EVERY 4 HOURS, First occurrence on 09/11/20 at 0405, Until Specified, Consider choosing EVERY 4 HOURS as frequency for: - Type 1 Diabetes - At least 24 hours after coming off an insulin drip - At least 24 hours after admission for DKA - Hypoglycemia unawareness - Patients who are otherwise unstable Select the same frequency for the correction bolus insulin order And insulin lispro (HumaLOG) (100 unit/mL) subcutaneous injection vial 1-6 UnitsJump to med 1-6 Units, Subcutaneous, EVERY 4 HOURS SCHEDULED, First dose on 09/11/20 at 0500, Until Discontinued, CORRECTION BOLUS [1-6 Units] Moderate Sliding Scale: Correction factor 20 (1 unit of insulin is expected to drop the glucose 20 mg/dL) BG 140 - 160 Give 1 unit BG 161 - 180 Give 2 units BG 181 - 200 Give 3 units BG 201 - 220 Give 4 units BG 221 - 240 Give 5 units BG greater than 240, give 6 units and recheck BG in 2 hours. - If recheck BG is LESS than 240, give no insulin and resume schedule. - If recheck BG is GREATER than 240, give 6 units and repeat BG in 2 hours (no more than 3 times) & call for new insulin orders. DO NOT hold if NPO, unless specifically told to do so. Per Blood Glucose Monitoring Policy, re-check a BG of > 240 in 2 hours., Routine Group 2: lidocaine (Lidoderm) 5 % topical patch 3 patchJump to med 3 patch, Transdermal, DAILY, First dose on 09/11/20 at 0415, Until Discontinued, Apply patch(es) for 12 hours, and then remove for 12 hours., Routine And lidocaine (Lidoderm) topical patch REMOVALJump to med Transdermal, EVERY 24 HOURS, First dose on 09/11/20 at 2100, Until Discontinued, Remove lidocaine 5% patch Group 3: glucose (GLUTOSE) 40% oral geLJump to med 15-30 g, Buccal, EVERY 30 MIN PRN, Starting on 09/11/20 at 0402, Until 09/18/20 at 1608, Low blood sugar, For BG 50-70 mg/dL: Oral treatment preferred:?? If able to drink, give 120 mL Juice or Regular (not diet) soda OR If NPO, give 15 gram glucose 40% oral gel massaged into buccal mucosa OR if unconscious or uncooperative, give 25 gram (250 mL) Dextrose 10% IV over 15 minutes per protocol OR, if no IV access, 1 mg Glucagon IM. For BG less than 50 mg/dL: Oral treatment preferred:?? If able to drink, give 240 mL Juice or Regular (not diet) soda OR If NPO, give 30 gram glucose 40% oral gel massaged in buccal mucosa OR if unconscious or uncooperative, give 25 gram (250 mL) Dextrose 10% IV over 15 minutes per protocol OR, if no IV access, 1 mg Glucagon IM. Recheck BG in 30 minutes. May repeat juice/soda, gel, dextrose or glucagon once per episode. For persistent hypoglycemia, consider longer-acting treatment for the duration of the active insulin. 1 tube contains 15 grams of glucose (net weight of tube = 37.5 grams., Routine Or dextrose 10% infusionJump to med 250 mL, at 1,000 mL/hr, Intravenous, EVERY 30 MIN PRN, Starting on 09/11/20 at 0402, Until 09/18/20 at 1608, For BG 50-70 mg/dL: Oral treatment preferred:?? If able to drink, give 120 mL Juice or Regular (not diet) soda OR If NPO, give 15 gram glucose 40% oral gel massaged into buccal mucosa OR if unconscious or uncooperative, give 25 gram (250 mL) Dextrose 10% IV over 15 minutes per protocol OR, if no IV access, 1 mg Glucagon IM. For BG less than 50 mg/dL: Oral treatment preferred:?? If able to drink, give 240 mL Juice or Regular (not diet) soda OR If NPO, give 30 gram glucose 40% oral gel massaged in buccal mucosa OR if unconscious or uncooperative, give 25 gram (250 mL) Dextrose 10% IV over 15 minutes per protocol OR, if no IV access, 1 mg Glucagon IM. Recheck BG in 30 minutes. May repeat juice/soda, gel, dextrose or glucagon once per episode. For persistent hypoglycemia, consider longer-acting treatment for the duration of the active insulin. Or glucagon (human recombinant) injection SolR 1 mgJump to med 1 mg, Intramuscular, EVERY 30 MIN PRN, Starting on 09/11/20 at 0402, Until 09/18/20 at 1608, Low blood sugar, For BG 50-70 mg/dL: Oral treatment preferred:?? If able to drink, give 120 mL Juice or Regular (not diet) soda OR If NPO, give 15 gram glucose 40% oral gel massaged into buccal mucosa OR if unconscious or uncooperative, give 25 gram (250 mL) Dextrose 10% IV over 15 minutes per protocol OR, if no IV access, 1 mg Glucagon IM. For BG less than 50 mg/dL: Oral treatment preferred:?? If able to drink, give 240 mL Juice or Regular (not diet) soda OR If NPO, give 30 gram glucose 40% oral gel massaged in buccal mucosa OR if unconscious or uncooperative, give 25 gram (250 mL) Dextrose 10% IV over 15 minutes per protocol OR, if no IV access, 1 mg Glucagon IM. Recheck BG in 30 minutes. May repeat juice/soda, gel, dextrose or glucagon once per episode. 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
--- OUTSIDE RECORDS SUMMARY | 2024-03-17 14:19 | XMS_ITS | Encounter Summary ---
Author Organization [facility] Address [facility] [place] [address] Care Team Providers Care Flitch Hanger Name Role Phone Reshma Baig MD Primary Care Provider [phone] Reason for Visit * Auth/Cert Specialty Diagnoses / Procedures Referred By Malini carlson Referred To Contact Diagnoses Anemia Procedures EMERGENCY IPI Referral ID Status Reason Start Date Expiration Date Visits Re quested Visits Authorized [id number] 1 1 Encounter Details Date Type Department Care Team (Late st Contact Info) Description 09/15/2020 12:50 PM EST Anesthesia Event [place] [address] [facility] [place] [address] [facility] [place] [address] Anesthesia Record Procedure Summary Procedure Name Responsible Anesthesiologist Anesthesia Start Time Anesthesia Stop Time CARDIAC CATHETERIZATION Kelin Patel MD 09/15/20 1250 09/15/20 1557 Events Date Time Event Comment 09/15/2020 1250 AN Verify 1250 Start 1250 An Start Data 1315 An Induction 1330 Anesthesia Ready 1340 Procedure Start 1340 Recovery or ICU Handoff Brigitte ent care was transferred to the destination unit staff after review of the patient's medical history, current anesthetic/surgical status and plan, according to the Provider Handoff Checklist. 1355 Heparin 1356 Test Transvenous Pacing 1410 Rapid Ventricular Pacing 1411 Ao Balloon Valvuloplasty 1412 Rapid Ventricular Pacing 1413 Ao Valve Deployment 1419 Protamine 1530 Transport 1557 Stop 1623 an stop data 09/17/2020 0810 Meds Name Total fentaNYL 25 mcg Propofol INF 317.79 mg Heparin 5,500 Units Protamine 40 mg NORepinephrine 32 mcg NORepinephrine INF 370 mcg ceFAZolin 2 g Vancomycin 1 g hydrALAZINE 20 mg Lactated Ringers 700 mL Sodium Chloride 0.9% 0 mL * Agents Name O2 Air N2O * Blood No blood administrations on file. Lines, Drains, and Airways Type Details Placement Removal Incision 07/15/20; 1558; umbilical area; laparoscopic puncture; 04/24/22 (LDA cleanup utility RA#2746); 1715 (LDA cleanup utility RA#[id number]) 07/15/20 1558 by Abdirahman Chavez 04/24/22 1715 by Dulce Kingston Incision 07/15/20; 1604; lowe r quadrant; laparoscopic punctures (specify) (3 laparoscopic punctures across right side of abdomen); 04/24/22 (LDA cleanup utility RA#[id number]); 1715 (LDA cleanup utility RA#[id number]) 07/15/20 1604 by Abdirahman Chavez 04/24/22 1715 by Dulce Kingston (RETIRED) Peripheral IV Line - Single Lumen 09/11/20; 0107; cephalic vein (lateral side of arm), right; [id number] catheter system; 20 gauge, 1 in length; rmt, fire safety manager-vas; distraction, tolerated well, appears comfortable; 06/01/21 (LDA Cleanup utility RA#2611); 1650 (LDA Cleanup utility RA#2611) 09/11/20 0107 by Evette Santos LPN 06/01/21 1650 by Jonnathan Kim Cath/EP Sheath 09/15/20; 1345; 6 Fr ench (Fr); Right; Femoral (artery) 09/15/20 1345 by Raymundo Dalal RN 09/15/20 1830 by Luci Boyle RN LDA Cath/EP Sheath 09/15/20; 1349; 6 Fr ench (Fr); Left; Femoral (artery) 09/15/20 1349 by Raymundo Dalal RN 09/15/20 1645 by Kelsy Velasco RN LDA Cath/EP Sheath 09/15/20; 1351; 6 Fr ench (Fr); Left; Femoral (vein) 09/15/20 1351 by Raymundo Dalal RN 09/15/20 1830 by Luci Boyle RN documented in this encounter Social History Tobacco Use Types Packs/Day Years Used Date Smoking Tobacco: Never Smokeless Tobacco: Never Alcohol Use Standard Drinks/Week Comments Not Currently 0 (1 standard drink = 0.6 oz pur e alcohol) occassional Sex and Gender Information Value Date Recorded Sex Assigned at Not on file Gender Identity Not on file Sexual Orientation Not on file documented as of this encounter OR Notes * Anesthesia Postprocedure Evaluation - Eamon Borrero MD - 09/15/2020 5:00 PM EST Department of Anesthesiology Post-procedure Note Patient: Shannan Moody Procedure Summary Date: 09/15/20 Room / Location: [facility] CATH [facility]S Anesthesia Start: 1250 Anesthesia Stop: 1557 Procedures: CARDIAC CATHETERIZATION (N/A ) COMBINED RIGHT & LEFT HEART CATH,INC INJ FOR L VENTRICULOGRAPHY (N/A ) @TRANSCATHETER AORTIC VALVE REPLACEMENT (TAVR), PERCUTANEOUS FEMORAL (WRVU 25.13) (N/A ) TRANSESOPHAGEAL ECHO DURING CATH/EP PROCEDURE (N/A ) Diagnosis: Aortic stenosis, severe (Aortic stenosis, severe [I35.0]) (TAVR) Provider: Sera Valentin MD; Pan Hurtado MD; Darwin Connors MD Responsible Provider: Kelin Patel MD Anesthesia Type: MAC ASA Status: 3 All Anesthesia Providers: Anesthesiologist: Kelin Patel MD Lumber Press Operator: Eamon Borrero MD Vitals Value Taken Time BP 146/124 09/16/20 1100 Temp 36.8 ??C (98.2 ??F) 09/16/20 0800 Pulse 64 09/16/20 1129 Resp 16 09/16/20 1129 SpO2 99 % 09/16/20 1048 Pain Level 8 09/16/20 0836 Vitals shown include unvalidated device data. Patient Location: [facility] Level of Consciousness: Conscious but Sleepy Pain Management: Satisfactory Analgesia PONV: None Cardiovascular Status: Hemodynamically Stable Respiratory Status: Stable Respiratory Status and Supplemental O2 (NC or FM) Postoperative Fluid Status: Intravascular EUvolemia Possible Anesthetic Complications: NONE apparent at time of evaluation Final Primary Anesthesia Type: MAC (The anesthetic type performed was the same as planned.) Comments: * Anesthesia Preprocedure Evaluation - Kelin Patel MD - 09/15/2020 12:41 PM EST Pre-Anesthesia Evaluation for: Shannan Moody a 80 y.o. female. Procedure(s): CARDIAC CATHETERIZATION COMBINED RIGHT & LEFT HEART CATH,INC INJ FOR L VENTRICULOGRAPHY @TRANSCATHETER AORTIC VALVE REPLACEMENT (TAVR), PERCUTANEOUS FEMORAL (WRVU 25.13) TRANSESOPHAGEAL ECHO DURING CATH/EP PROCEDURE Patient Active Problem List Diagnosis ??? Anemia, iron deficiency ??? S/P balloon aortic valvuloplasty 06/24/2020 ??? Esophagitis, erosive ??? Aortic stenosis, severe Added automatically from request for surgery [id number] ??? Obesity (BMI 30.0-34.9) ??? Aortic stenosis - moderate 04/20/20 TTE [...] ??? Hyperlipidemia ??? Arthritis Past Medical History: Diagnosis Date ??? Actinic keratosis 08/31/2011 ??? Diabetes ??? Seborrheic keratosis 08/31/2011 ??? Severe aortic stenosis Past Surgical History: Procedure Laterality Date ??? CT PERITONEAL DRAINAGE 04/28/2020 CT Guided Drain Peritoneal 04/28/2020 [facility] RAD CAT SCAN ??? HYSTERECTOMY, VAGINAL ??? IR BILIARY TUBE CHECK/CHANGE/REMOVE 06/03/2020 IR Biliary Tube Check/Change/Remove 06/03/2020 Jos Collins, DO [facility] INTERVENTIONL RAD ??? IR CHOLECYSTOSTOMY TUBE PLACEMENT 04/22/2020 IR Cholecystostomy Tube Placement 04/22/2020 Jos Collins, DO [facility] INTERVENTIONL RAD ??? IR DRAIN CHECK/CHANGE/REMOVE 05/19/2020 IR Drain Check/Change/Remove 05/19/2020 Jos Collins, DO [facility] INTERVENTIONL RAD ??? PRO COLONOSCOPY, DIAGNOSTIC N/A 09/12/2020 COLONOSCOPY, DIAGNOSTIC performed by Mane Avila MD at [facility] ENDOSCOPY ??? PRO LAP, CHOLECYSTECTOMY/GRAPH N/A 07/15/2020 LAPAROSCOPIC CHOLECYSTECTOMY WITH CHOLANGIOGRAM (WRVU 11.47) performed by Hong Rosenthal MD at [facility] MAIN OR ??? PRO UPPER GI ENDOSCOPY, BIOPSY N/A 09/12/2020 EGD WITH BIOPSY (WRVU 2.49) performed by Mane Avila MD at [facility] ENDOSCOPY ??? PRO UPPER GI ENDOSCOPY, DIAGNOSTIC N/A 05/03/2020 EGD, UPPER GI ENDOSCOPY performed by Brigitte Graf MD at [facility] ENDOSCOPY Social History Tobacco Use ??? Smoking status: Never Smoker ??? Smokeless tobacco: Never Used Substance Use Topics ??? Alcohol use: Not Currently Comment: occassional Social History Substance and Sexual Activity Drug Use Never No Known Allergies Medications: MAR and/or home medications have been reviewed. Physical Exam: Patient Vitals for the past 24 hrs: Temp Heart Rate From SP02 Pulse Resp BP SpO2 O2 Device 09/14/20 1558 36.7 ??C (98.1 ??F) 58 bpm 58 22 (!) 139/38 99 % RA 09/14/20 2222 36.8 ??C (98.2 ??F) 59 bpm 59 16 122/45 95 % RA 09/15/20 0015 -- -- 62 -- 134/47 -- -- 09/15/20 0433 36.8 ??C (98.2 ??F) 60 bpm 60 17 133/50 97 % RA 09/15/20 0743 37 ??C (98.6 ??F) 57 bpm 55 16 158/57 100 % RA 09/15/20 0852 -- -- -- -- 140/45 -- -- 09/15/20 1133 36.9 ??C (98.4 ??F) 57 bpm 57 17 121/41 99 % RA 09/15/20 1138 -- -- 57 -- (!) 121/39 -- -- Body mass index is 31.33 kg/m??. Height: 157.5 cm (5' 2) Weight: 77.7 kg (171 lb 4.8 oz) Airway Assessment: Mallampati: III Cardiovascular Assessment: Rhythm: regular Pulmonary Assessment: unlabored breathing Dental Assessment: Misc Assessment: Anesthesia Plan: ASA 3 MAC, with a(n) intravenous induction PRELIMINARY NOTE PER CHART REVIEW (Prior to Patient Exam): Shannan Moody is a 80 y.o. female with a hx significant for Severe , ASCVD (DESx2 Ostial RCA 03/2020), pAF, DM2, HTN, HLD presenting for the following procedure(s): Procedure(s): CARDIAC CATHETERIZATION COMBINED RIGHT & LEFT HEART CATH,INC INJ FOR L VENTRICULOGRAPHY @TRANSCATHETER AORTIC VALVE REPLACEMENT (TAVR), PERCUTANEOUS FEMORAL (WRVU 25.13) TRANSESOPHAGEAL ECHO DURING CATH/EP PROCEDURE Allergies: No Known Allergies Anesthesia Hx: Prior grade 3 view with mac 3 blade. NPO status: adequate TTE 09/10/20: SUMMARY: ?? 1. The left ventricular chamber [...] is no evidence of a pericardial effusion. Labs: 09/15/20 09/14/20 09/13/20 -- 09/13/20 0445 0351 2250 -- 0539 WBC 6.9 6.5 -- -- 6.1 HGB 8.5* 8.4* 8.8* < > 8.5* HCT 28.2* 28.7* 30.0* < > 28.2* PLATELET 316 325 -- -- 315 < > = values in this interval not displayed. 09/15/20 09/14/20 09/13/20 09/13/20 0445 0351 1125 0539 NA 139 140 -- 141 K 4.2 4.4 4.2 4.3 CL 106 107 -- 108* CO2 24 24 -- 23 BUN 16 13 -- 12 CREATININE 0.99 1.11 -- 0.98 09/14/20 09/13/20 09/12/20 0351 0539 0143 AST 24 41* 23 ALT 28 30 21 ALKPHOS 111* 110* 120* BILITOT 1.0 1.9* 2.7* BILIDIR 0.3 0.4* 0.3 01/09/14/20 09/13/20 0445 0351 0539 PT 11.2 12.2 12.8* INR 1.0 1.1 1.1 PTT 26 28 29 Lab Results Component Value Date ABORH O Pos 09/15/2020 Plan is for MAC (GA with ETT backup), standard ASA monitors, and adequate IV access. Eamon Borrero MD PGY3 (CA-2), Build Master Pager #[phone] Informed Consent: PAT Clinic Note documented in this encounter Plan of Treatment Not on file documented as of this encounter Visit Diagnoses Not on filedocumented in this encounter Administered Medications Inactive Administered Medications - up to 3 most recent administrations Medication Order MAR Action Action Date Dose Rate Site ceFAZolin (Ancef) 1 g in dextrose 5% 50 mL infusion PRN, Starting on Sun09/15/20 at 1325, Until Noreen 09/16/20 at 1438, Administer over 30 Minutes, Anesthesia Intra-op Given 09/15/2020 1:25 PM EST 2 g fentaNYL (pf) (50 mcg/mL) multi-dose injection Intravenous, PRN, Starting on Sun09/15/20 at 1443, Until Noreen 09/16/20 at 1438, Anesthesia Intra-op, Routine Given 09/15/2020 2:43 PM EST 25 mcg heparin (porcine) (1,000 units/mL) injection Intravenous, PRN, Starting on Sun09/15/20 at 1355, Until Noreen 09/16/20 at 1438, Anesthesia Intra-op, Routine Given 09/15/2020 1:55 PM EST 5,500 Units hydrALAZINE (Apresoline) (20 mg/mL) injection PRN, Starting on Sun09/15/20 at 1416, Until Noreen 09/16/20 at 1438, Anesthesia Intra-op, Routine Given 09/15/2020 2:16 PM EST 20 mg lactated ringers infusion CONTINUOUS PRN, Starting on Sun09/15/20 at 1250, Until Noreen 09/16/20 at 1438, Anesthesia Intra-op New Bag 09/15/2020 12:50 PM EST NORepinephrine (Levophed) (16 mcg/mL) in sodium chloride 0.9% 250 mL infusion Intravenous, CONTINUOUS PRN, Starting on Sun09/15/20 at 1429, Until Noreen 09/16/20 at 1438, Anesthesia Intra-op, Routine Rate/Dose Change 09/15/2020 2:52 PM EST 2 mcg/min 7.5 mL/hr Rate/Dose Change 09/15/2020 2:50 PM EST 8 mcg/min 30 mL/h r Rate/Dose Change 09/15/2020 2:42 PM EST 16 mcg/min 60 mL/h r NORepinephrine (Levophed) injection Intravenous, PRN, Starting on Sun09/15/20 at 1427, Until Noreen 09/16/20 at 1438, Anesthesia Intra-op, Routine Given 09/15/2020 2:30 PM EST 8 mcg Given 09/15/2020 2:29 PM EST 8 mcg Given 09/15/2020 2:28 PM EST 8 mcg propofoL (Diprivan) infusion Intravenous, CONTINUOUS PRN, Starting on Sun09/15/20 at 1315, Until Noreen 09/16/20 at 1438, Anesthesia Intra-op, Routine Rate/Dose Change 09/15/2020 1:59 PM EST 30 mcg/kg/min 14 mL/hr Rate/Dose Change 09/15/2020 1:43 PM EST 50 mcg/kg/min 23.3 mL/hr Rate/Dose Change 09/15/2020 1:31 PM EST 30 mcg/kg/min 14 m L/hr protamine (10 mg/mL) injection Intravenous, PRN, Starting on Sun09/15/20 at 1419, Until Noreen 09/16/20 at 1438, Anesthesia Intra-op, Routine Given 09/15/2020 2:19 PM EST 40 mg sodium chloride 0.9% infusion CONTINUOUS PRN, Starting on Sun09/15/20 at 1250, Until Noreen 09/16/20 at 1438, Anesthesia Intra-op New Bag 09/15/2020 12:50 PM EST vancomycin (Vancocin) injection PRN, Starting on Sun09/15/20 at 1325, Until Noreen 09/16/20 at 1438, Anesthesia Intra-op, Routine Given 09/15/2020 1:25 PM EST 1 g documented in this encounter Care Teams Flitch Hanger Relationship Specialty Start Date End Date Reshma Baig MD [address] [place] [address] PCP - General Family Medicine 11/08/18 06/23/21 documented as of this encounter
--- OUTSIDE RECORDS SUMMARY | 2024-03-17 14:19 | XMS_ITS | Encounter Summary ---
[place] [address] Care Team Providers Care Bowling Ball Marker Name Role Phone Reshma Baig MD Primary Care Provider [phone] Reason for Visit * Auth/Cert Specialty Diagnoses / Procedures Referred By Malini carlson Referred To Contact Diagnoses Anemia Procedures EMERGENCY IPI Referral ID Status Reason Start Date Expiration Date Visits Re quested Visits Authorized [id number] 1 1 Encounter Details Date Type Department Care Team (Latest Contact Info) Description 09/15/2020 1:00 PM EST - 09/15/2020 11:59 PM EST Hospital Encounter [place] [address] Discharge Disposition: Home Social History Tobacco Use [...] 10.65 400 each 3 10/03/2016 Blood-Glucose Meter [facility] [place] One Touch Ultra Brand, 250.02. 1 each 0 12/02/2013 Lancets [facility] [place] [facility] Use twice daily or as needed. 200 each 3 12/02/2013 ferrous gluconate (Fergon) 324 mg (37.5 mg iron) Tablet Take 1 tablet by mouth daily. 60 tablet 1 09/18/2020 09/24/2020 losartan (Cozaar) 50 mg Tablet Take 1 tablet by mouth daily. 90 tablet 3 09/19/2020 09/18/2020 losartan (Cozaar) 50 mg Tablet Take 1 tablet by mouth daily. 90 tablet 3 09/19/2020 10/18/2020 metoprolol succinate XL (Toprol-XL) 100 mg Tablet Sustained Release 24 hr Take 2 tablets by mouth nightly. 30 tablet 12 06/25/2020 09/18/2020 clopidogreL (Plavix) 75 mg Tablet Take 1 tablet by mouth daily. 90 tablet 3 05/08/2020 08/30/2021 losartan (Cozaar) 25 mg Tablet Take 1 tablet by mouth daily. 90 tablet 3 05/09/2020 09/18/2020 documented as of this encounter Plan of Treatment Not on file documented as of this encounter Procedures Procedure Name Priority Date/Time Associated Diagnosis Comments ECHO COMPLETE Routine 09/15/2020 3:24 PM EST Aortic stenosis, severe documented in this encounter Results * ECHO COMPLETE (09/15/2020 3:24 PM EST) EF 70 [employer] Anatomical Region Laterality Modality Other 09/15/2020 Narrative 09/16/2020 8:00 AM EST Procedure: ?Transthoracic Echocardiogram Patient: ?WILLIAM Francis ? (Age): 1940(80y) Med Rec#: ? [id number] ?Sex: ?F ? [place] [facility] [place]Ht / Wt: ??158(cm)/78(kg) Pt. Loc: ?Water Quality Manager ?BSA: ?1.8 Study Date: ?? 09/15/2020 ?Pt. Type: Inpatient Tape: ? Referring: Sera Valentin Reading: Jos Wheeler ([id number]) Plastic Battery Assembler: Danie Huff Diagnosis: *Nonrheumatic aortic (valve) stenosis [...] 09/15/2020 16:21:34 Images reviewed and interpretation verified [facility]ound [facility] Procedure Note Jos Wheeler MD - 09/16/2020 Procedure: Transthoracic Echocardiogram Patient: WILLIAM Francis (Age): 1940(80y) Med Rec#: [id number] Sex: F [place] Loc: [facility] [place] Ht / Wt: 158(cm)/78(kg) Pt. Loc: [facility] Quality Manager BSA: 1.8 Study Date: 09/15/2020 Pt. Type: Inpatient Tape: Referring: Sera Valentin Reading: Jos Wheeler ([id number]) Plastic Battery Assembler: Danie Huff Diagnosis: *Nonrheumatic aortic (valve) stenosis [...] 09/15/2020 16:21:34 Images reviewed and interpretation verified [facility] Ultrasound [facility] Abiodun Chun MD ECHO ORDERABLES documented in this encounter Visit Diagnoses Not on filedocumented in this encounter Care Teams Bowling Ball Marker Relationship Specialty Start Date End Date Reshma Baig MD [address] [place] [address] PCP - General Family Medicine 11/08/18 06/23/21 documented as of this encounter
--- OUTSIDE RECORDS SUMMARY | 2024-03-17 14:20 | XMS_ITS | Encounter Summary ---
Author Organization [facility] Address [facility] [place] [address] Care Team Providers Care Crimper Operator Name Role Phone Reshma aBig MD Primary Care Provider [phone] Reason for Visit * Reason Comments Abnormal Labs hemoglobin 5.4 * Auth/Cert Specialty Diagnoses / Procedures Referred By Malini carlson Referred To Contact Diagnoses Anemia Procedures EMERGENCY IPI Referral ID Status Reason Start Date Expiration Date Visits Re quested Visits Authorized [id number] 1 1 Encounter Details Date Type Department Care Team (Late st Contact Info) Description 09/15/2020 12:34 PM EST - 09/15/2020 2:12 PM EST Surgery [place] [address] Esau Rahman MD [facility] [place] [address] CARDIAC CATHETERIZATION Social History Tobacco Use Types Packs/Day Years [...] Sign Reading Time Taken Comments Blood Pressure 121/39 09/15/2020 11:38 AM EST Pulse 57 09/15/2020 11:38 AM EST Temperature 36.9 ??C (98.4 ??F) 09/15/2020 11:[address] Respiratory Rate 17 09/15/2020 11:33 AM EST Oxygen Saturation 99% 09/15/2020 11:33 AM EST Inhaled Oxygen Concentration - - Weight 77.7 kg (171 lb 4.8 oz) 09/15/2020 5:00 A M EST Height 157.5 cm (5' 2) 09/10/2020 4:38 PM EST Body Mass Index 31.65 09/10/2020 4:38 PM EST documented in this encounter Discharge Summaries * Prashanth Jacob PA - 09/18/2020 10:27 AM EST Inpatient - Discharge Summary Patient Name: Shannan Chaudhary Patient Age: 80 y.o. Birthdate: 1940 Language: Portuguese Race: White Ethnicity: Not nor Admit Date: 09/10/2020 Discharge Date: 09/16/20 Attending Physician: Pan Hurtado MD Follow-up Recommendations for Providers: ??? Please continue routine management of cardiovascular risk factors including blood pressure, lipids, glucose, etc. ??? Please note any medication changes. ??? Our office will schedule a follow-up appointment with your PCP, Reshma Baig MD, or Primary Tip Inserter, in ~ 7-10 days. ??? Our office will schedule a follow-up appointment with your Train Braker, Dr. Esau Rahman in 4 weeks with a chest x-ray, EKG, Echo, CBC, and CMP. ?? Wmzp-Yayorg-az interval: After initial 30 day follow-up appointment , all TAVR patients will follow-up again in one year with an echo. Inpatient Provider Contact Information: [facility] Section of Cardiac Surgery [facility] [phone] FAX [phone] Discharge Diagnoses (Hospital Problems) Primary Diagnoses: Aortic [...] DRAINAGE 04/28/2020 CT Guided Drain Peritoneal 04/28/2020 [facility] RAD CAT SCAN ??? HYSTERECTOMY, VAGINAL ??? IR BILIARY TUBE CHECK/CHANGE/REMOVE 06/03/2020 IR Biliary Tube Check/Change/Remove 06/03/2020 Jos Collins, DO [facility] INTERVENTIONL RAD ??? IR CHOLECYSTOSTOMY TUBE PLACEMENT 04/22/2020 IR Cholecystostomy Tube Placement 04/22/2020 Jos Collins, DO [facility] INTERVENTIONL RAD ??? IR DRAIN CHECK/CHANGE/REMOVE 05/19/2020 IR Drain Check/Change/Remove 05/19/2020 Jos Collins, DO [facility] INTERVENTIONL RAD ??? PRO COLONOSCOPY, DIAGNOSTIC N/A 09/12/2020 COLONOSCOPY, DIAGNOSTIC performed by Mane Avila MD at [facility] ENDOSCOPY ??? PRO LAP, CHOLECYSTECTOMY/GRAPH N/A 07/15/2020 LAPAROSCOPIC CHOLECYSTECTOMY WITH CHOLANGIOGRAM (WRVU 11.47) performed by Hong Rosenthal MD at [facility] MAIN OR ??? PRO UPPER GI ENDOSCOPY, BIOPSY N/A 09/12/2020 EGD WITH BIOPSY (WRVU 2.49) performed by Mane Avila MD at [facility] ENDOSCOPY ??? PRO UPPER GI ENDOSCOPY, DIAGNOSTIC N/A 05/03/2020 EGD, UPPER GI ENDOSCOPY performed by Brigitte Graf MD at [facility] ENDOSCOPY Prior To Admission Medications Medications [...] Hospital Course: Shannan Chaudhary was admitted to [facility] on 09/10/2020 via admission from clinic to [...] TF TAVR She was brought to the blood and plasma laboratory assistant 09/16/[address] Pan Hurtado and Esau [...] tablet Refills: 0 blood sugar diagnostic strips Strp Commonly known as: OneTouch Ultra Test 1 each by Other route 3 times daily (before meals). Diag code E10.65 1 each Quantity: 300 each Refills: 3 Blood-Glucose Meter [facility] One Touch Ultra Brand, 250.02. Quantity: 1 [...] or drainage from your procedural sites. Your Train Braker, Dr. Esau Rahman and/or the Adoption Social Worker may be reached at . You may also contact KAMI Mayberry RN, TAVR Emery Wheel Molder at [phone] with any questions or issues. Antibiotic prophylaxis: [...] Please refer to the card with the [employer] Guidelines for more information. You have been provided with a copy of this card. Please refer to the [employer] Guidelines for more information. Good [...] friends, go to a movie, go to sabianist, etc. Heavy activities: No hunting, skiing, jogging, [...] should resume a low fat, low cholesterol, [employer] Diet. Driving: No driving for [...] pain, warmth or drainage. Please call your survey statistician's office if you haveany discharge or drainage from your procedural sites. If there is a lot of swelling, apply yakelin wraps during the day and remove at bedtime. Elevate your legs when you are sitting. Home oxygen therapy: N/A Follow up appointments: ??? Our office will schedule a follow-up appointment with your PCP, Reshma Baig MD, or Primary Tip Inserter, in ~ 7-10 days. ??? Our office will schedule a follow-up appointment with your Train Braker, Dr. Esau Rahamn, in 4 weeks with a chest x-ray, EKG, Echo, and labs prior to your appointment. ?? Egwx-Tijmug-xv interval: After initial 30 day follow-up appointment , all TAVR patients will follow-up again in one year with an echo. Cardiac Rehabilitation: Shannan Chaudhary was seen today regarding participation in the outpatient Phase 2 Cardiac Rehabilitation at [facility]. The patient agrees to a referral to this program. The referral will be sent at discharge and the patient should be contacted by the Program within 1- 2 weeks from discharge. Future Appointments and Orders Future Appointments and Orders Future Appointments Provider Department Dept Phone 10/18/2020 12:30 PM LAB, THREE L Lab [address] [place] [address] Arrive at: [facility] [phone] 10/18/2020 1:00 PM ECHO REGULAR Non-Invasive Cardiology Lab [facility] Arrive at: [facility] [phone] 10/18/2020 2:30 PM NURSE, CARDIOLOGY Cardiology at [facility] Arrive at: [facility] [phone] 10/18/2020 3:00 PM Maria L Green PA Cardiology at [facility] Arrive at: [facility] [phone] Future Orders Complete By Expires CBC (with Diff) [RWP877 Custom] 10/19/2020 (Approximate) 03/18/2021 Process Instructions: INCLUDES: WBC, RBC, Hgb, Hct, Platelets, RBC Indices and Differential Scheduling Instructions: Comments: Questions: Comprehensive metabolic panel (non-fasting) [LAB17 Custom] 10/19/2020 (Approximate) 03/18/2021 Process Instructions: INCLUDES: Calcium, T Protein, Albumin, AST, ALT, Alk Phos, T Bili, BUN, Creat, GFR, Glucose, Lytes. Scheduling Instructions: Comments: Questions: Echocardiogram Transthoracic([facility] or [facility]) [57343 CPT(R)] 10/19/2020 (Approximate) 03/18/2021 Process Instructions: Scheduling Instructions: Questions: Is a Bubble Study requested?: Does the patient have Congenital Heart Disease?: [place] rationale: Does patient require sedation?: Where should this exam be performed?: [facility] EKG 12 Lead [46100 CPT(R)] 10/19/2020 (Approximate) 03/18/2021 Process Instructions: Scheduling Instructions: Questions: Which location will this be performed?: [place] Is a rhythm strip needed?: No XR Chest PA & Lateral (Generic) [79433 22786 Custom] 10/19/2020 (Approximate) 03/18/2021 Process Instructions: Scheduling Instructions: Questions: Where will study be performed?: [facility] Radiology Portable exam?: Reason for exam and clinical history: s/p TAVR Clinical information / sanchez questions: Stat read required?: Date of injury if applicable: Requested Time: Referral to Cardiac Rehab [YXZ907 Custom] As directed Process Instructions: If no progress note charted, please enter Clinical details in comments. Scheduling Instructions: Questions: My question or request is: TAVR- CR at [facility] Referral to Home Health - at DISCHARGE [YWP0243 CPT(R)] As directed Process Instructions: Scheduling Instructions: Comments: DOCUMENTATION FOR VNA SERVICES (INCLUDING THOSE PATIENTS WITH MEDICARE COVERAGE REQUIRING HOME VNA SERVICES AND/OR HOSPICE SERVICES) PATIENT'S LOCATION: Shannan Farley[address] [address] (home) Telephone Information: Clothes Designer's Name: patient In discussion with the attending physician, it is certified that this patient is under their care and that they, or a Nurse Practitioner, or Physician Commercial Parts Professional who is working directly with them, hada [...] for services as follows: HOME HEALTH AGENCY: [facility] PHONE: [phone] FAX: [phone] RN orders: Cardiopulmonary assessment, incisional assessment, assess [...] issues please call the Cardiac SurgeryOffice at [phone] FOR MEDICARE ONLY: (please delete this section [...] noted. Questions: Agency name and contact information: [facility] Patient location post discharge: Home What services are requested: Registered Nurse Physical Therapy Start date: Responsible MD post discharge contact info: PCP Walker standard [EQ135 Custom] As directed Process Instructions: Scheduling Instructions: Comments: Shannan [facility] [address] [facility] [address] (home) Telephone Information: Diagnosis:severe anemia, s/p TAVR with Unsteady gait Significant weakness, ataxia or gait abnormality Patient's: Hgt: 5'2 Wgt: 174 lbs VENDOR: [facility] Ordering: Front wheel walker Deliver to 's hospital room #: 445 Questions: Vendor Name/Contact information: [facility] Discharge References/Attachments EGD (Upper Endoscopy): Post-op (Portuguese) Colonoscopy: Post-op (Portuguese) Arrangements for VNA/home care: As above. Signed: Prashanth Jacob PA-C [facility] Section of Cardiac Surgery Date: 09/18/2020 CC: MD Safia Mcdonald Linda, MD [address] [place] [address] documented in this encounter Discharge Instructions * [...] or drainage from your procedural sites. Your Train Braker, Dr. Esau Rahman and/or the Adoption Social Worker may be reached at . ?? You may also contact KAMI Mayberry RN, TAVR Emery Wheel Molder at [phone] with any questions or issues. ?? Antibiotic [...] Please refer to the card with the [employer] Guidelines for more information. You have been provided with a copy of this card. Please refer to the [employer] Guidelines for more information. Good [...] friends, go to a movie, go to sabianist, etc. ?? Heavy activities: No hunting, skiing, [...] should resume a low fat, low cholesterol, [employer] Diet. ?? Driving: No driving [...] pain, warmth or drainage. Please call your survey statistician's office if you haveany discharge or drainage from your procedural sites. If there is a lot of swelling, apply yakelin wraps during the day and remove at bedtime. Elevate your legs when you are sitting. ?? Home oxygen therapy: N/A ?? Follow up appointments: ?? Our office will schedule a follow-up appointment with your PCP, Reshma Baig MD, or Primary Tip Inserter, in ~ 7-10 days. ?? Our office will schedule a follow-up appointment with your Train Braker, Dr. Esau Rahman, in 4 weeks with a chest x-ray, EKG, Echo, and labs prior to your appointment. ? Fqee-Kojryx-lv interval: After initial 30 day follow-up appointment , all TAVR patients will follow-up again in one year with an echo. ?? Cardiac Rehabilitation: Shannan Chaudhary??was seen today regarding participation in the outpatient Phase 2 Cardiac Rehabilitation at [facility]. The patient agrees to a referral to this program.? The referral will be sent at discharge and the patient should be contacted by the Program within 1- 2 weeks from discharge. ?? * Attachments The following attachments cannot be sent through Care Everywhere. * EGD (Upper Endoscopy): Post-op (Portuguese) * Colonoscopy: Post-op (Portuguese) documented in this encounter Medications at Time [...] 250.02. 1 each 0 12/02/2013 [facility] Use twice daily [...] as of this encounter Progress Notes * ZahiraNaifLeandra L, TABLET COATER - 09/18/2020 1:14 PM EST Physical Therapy [...] and owns. 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 ?? Precautions/Special Considerations:??universal ? Mobility and Positioning [...] comfort, all needs met. ? Assessment: Shannan Chaudhary was seen today for [...] Therapy: 10(TE-F 1 Time in 10:45-10:55) LEANDRA PAZ, TABLET COATER Pager: [phone] Physical Therapy Inpatient Rehabilitation Department * Renetta Contreras OT - 09/18/2020 12:30 PM EST Occupational Therapy Evaluation Patient profile: Shannan Chauhdary is a 80 y.o. female with PMH [...] DRAINAGE 04/28/2020 CT Guided Drain Peritoneal 04/28/2020 [facility] RAD CAT SCAN ??? HYSTERECTOMY, VAGINAL ??? IR BILIARY TUBE CHECK/CHANGE/REMOVE 06/03/2020 IR Biliary Tube Check/Change/Remove 06/03/2020 Jos Collins, DO [facility] INTERVENTIONL RAD ??? IR CHOLECYSTOSTOMY TUBE PLACEMENT 04/22/2020 IR Cholecystostomy Tube Placement 04/22/2020 Jos Collins, DO [facility] INTERVENTIONL RAD ??? IR DRAIN CHECK/CHANGE/REMOVE 05/19/2020 IR Drain Check/Change/Remove 05/19/2020 Jos Collins, DO [facility] INTERVENTIONL RAD ??? PRO COLONOSCOPY, DIAGNOSTIC N/A 09/12/2020 COLONOSCOPY, DIAGNOSTIC performed by Mane Avila MD at [facility] ENDOSCOPY ??? PRO LAP, CHOLECYSTECTOMY/GRAPH N/A 07/15/2020 LAPAROSCOPIC CHOLECYSTECTOMY WITH CHOLANGIOGRAM (WRVU 11.47) performed by Hogn Rosenthal MD at [facility] MAIN OR ??? PRO UPPER GI ENDOSCOPY, BIOPSY N/A 09/12/2020 EGD WITH BIOPSY (WRVU 2.49) performed by Mane Avila MD at [facility] ENDOSCOPY ??? 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 She says it is w/c accessible. She has a stall shower with a seat and grab bar. She does not have grab bars around the toilet. DME: shower seat, grab bars Baseline ADL/Mobility: Pt was independent TABLET COATER. She ambulated w/o a device, managed her ADL's and IADL's. 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 She reports being very tired prior to [...] WFL Vision & Perception: ?? corrective lenses multimedia authoring specialist Communication: WFL Range of motion, strength, coordination: [...] seen for an occupational therapy evaluation. Shannan Tito Chaudhary presents with thefollowing performance skill deficits and [...] and measurable assessment of functional outcome. Pager: [phone] RENETTA CONTRERAS OT 09/18/2020 Occupational Therapy Rehabilitation Department * Teresita Mccloud RN - 09/18/2020 11:22 AM EST Patient to discharge home today, [facility] walker delivered to patient room. Patient will be getting VNA services from [facility]. Orders posted by and will start care [...] therapy. Rain Winter OT Inpatient Rehab Pager #[phone] * Chioma Vann RN - 09/17/2020 2:01 [...] Home Health Agency Home Care / Non-Medical: [facility]. PHONE: [phone] FAX: [phone] Transportation: daughter Current DME: Equipment Currently Used at Home: none DME Needed at DC: Equipment Needed After Discharge: [facility] Located @ [place], [place] Functional status prior to admission: independent Home Environment: Lives With: alone. Living Arrangements: apartment. . Current Functional Ability: independent with stand by assist Patient is insured through: Primary Insurance: [employer] [place] Payor: [employer] [place] / Plan[place] VHP / Product Type: *No Product type* / Secondary Insurance: MEDICARE Prescription Coverage: yes Preferred Pharmacy: [facility] [address] [facility] [place] [place] [facility] [address] [facility] [address] [place] [id number] This plan was formulated with input from patient, family and team. All are in agreement with plan. Chioma Vann RN, MSN Chief Pilot - Cardiology Office of Care Management Pager: [phone] Work * Mikala Borden, PT - 09/17/2020 [...] and owns. 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 ?? Precautions/Special Considerations:??none specified ? Mobility and [...] plan as stated. Time IN / OUT: 6012-9254 Total Evaluation Minutes, Physical Therapy: 25(te-fx2) MIKALA BORDEN, PT Pager: [phone] Physical Therapy Inpatient Rehabilitation Department * Ashley [...] 0600 and on the weekends please page [phone]. * Jordan Davenport - 09/17/2020 11:22 AM EST Nutrition Services [...] consulted in the interim. Jordan Davenport Pager: [phone] * Mikala Borden, PT - 09/16/2020 11:11 [...] and owns. 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 ?? Precautions/Special Considerations: none specified ? Mobility [...] plan as stated. Time IN / OUT: 9880-4699 Total Evaluation Minutes, Physical Therapy: 24(te-f x2) MIKALA BORDEN PT Pager: [phone] Physical Therapy Inpatient Rehabilitation Department * Almaz Carias APRN - 09/16/2020 8:48 AM EST Cardiac Surgery [...] attending surgeon on rounds this morning. ALMAZ CARIAS, OBI 09/16/2020 Between the hours of 1800 - 0600 and on the weekends please page [phone]. * Esau Rahman MD - 09/16/2020 8:11 [...] BID Esau Rahman MD 5 mL at 09/15/202016 ??? sodium chloride 0.9 % (flush) flush 5-20 mL 5-20 mL Intravenous Q1 Min PRN Esau Rahman MD ??? ceFAZolin (Ancef) 1 g in dextrose 5% 50 mL infusion PRN Eamon Borrero MD 2 g at 09/15/20 1325 ??? vancomycin (Vancocin) injection PRN Eamon Borrero MD 1 g at 09/15/20 1325 ??? propofoL (Diprivan) infusion Intravenous Continuous PRN Eamon Borrero MD 14 mL/hr at09/15/20 1359 30 mcg/kg/min at 09/15/20 1359 ??? lactated ringers infusion Continuous PRN Eamon Borrero MD ??? sodium chloride 0.9% infusion Continuous [...] chloride 0.9% 250 mL infusion Intravenous Continuous PRN Eamon Borrero MD 7.5 mL/hr at 09/15/20 1452 2 mcg/min at 09/15/20 1452 ??? NORepinephrine (Levophed) injection Intravenous PRN Eamon Borrero MD 8 mcg at 09/15/20 1430 ??? fentaNYL (pf) (50 mcg/mL) multi-dose injection Intravenous PRN Eamon Borrero MD 25 mcg at 09/15/20 1443 ??? losartan (Cozaar) tablet 25 mg 25 mg Oral Daily Oscar Schilling DO 25 mg at 09/15/20 0852 ??? AMIOdarone (Cordarone; Pacerone) tablet 200 mg 200 mg Oral Daily Oscar Schilling DO 200mg at 09/15/20 0852 ??? pantoprazole EC (Protonix) tablet 40 mg 40 mg Oral BID Oscar Schilling DO 40 mg at 09/15/202017 ??? acetaminophen (Tylenol) tablet 650 mg 650 mg Oral Q4H PRN Иван Dodson MD 650 mg at 09/13/20 2335 ??? ferrous gluconate (Fergon) tablet 324 mg 324 mg Oral BID Abigail Todd MD 324 mg at 09/15/202017 ??? metoprolol tartrate (Lopressor) tablet 25 mg [...] tablet 20 mg 20 mg Oral QPM Caorl Reyna MD 20 mg at 09/15/20 1844 [...] infusion 250 mL Intravenous Q30 Min PRN Carol Reyna MD Or ??? glucagon (human recombinant) injection SolR 1 mg 1 mg Intramuscular Q30 Min PRN Carol Reyna MD ??? insulin lispro (HumaLOG) (100 unit/mL) subcutaneous injection vial 1-6 Units 1-6 Units Subcutaneous Q4H BASIL Carol Reyna MD 1 Units at 09/15/20 2317 ??? insulin glargine (Lantus) (100 unit/mL) subcutaneous injection vial 10 Units 10 Units Subcutaneous Daily Carol Reyna MD 10 Units at 09/15/20 0857 ??? lidocaine (Lidoderm) 5 % topical patch 3 patch 3 patch Transdermal Daily Carol Reyna MD 3 patch at 09/14/202051 And ??? lidocaine (Lidoderm) topical patch REMOVAL 3 patch Transdermal Q24H Carol Reyna MD No current [facility]-ordered outpatient medications on file. Lab Results Component [...] received in unit S/P TAVR in the blood and plasma laboratory assistant. While sheath being pulled patient became profoundly hypotensive requiring up to 15 mcgs of Levophed. Intubation was being considered but patient improved with blood pressure improvement. On arrival in [facility] patient was on NRB and on Levo at 2. Patient also received 1 unit of blood and 1 liter of NSaline in blood and plasma laboratory assistant. Shortly after arrival Right groin perclose started to bleed. Pressure was held. matlab developer PA over to inject lido with epi into rightgroin. He then pulled Left groin arterial sheath. At 6:30 Left groin venous sheath pulled by RN. Patient does only have one peripheral IV. Unable to obtain 2nd peripheral line despite attempts by Dr. Patel and IV team. Patient stable. Report given to Night RN. * Dago Merchant PA - 09/15/2020 5:06 PM EST [facility] Heart [facility] Vascular Center Interventional Cardiology Structural [...] neurological deficit. Dago Merchant PA-C Interventional Cardiology [facility] Heart and Vascular [facility] Pager [phone] * Natalia Kamara MD - 09/15/2020 4:39 [...] 3 wbc, hgb, hct plt Recent Labs 09/15/20 0445 09/14/20 03509/13/20 2250 09/13/20 0539 WBC 6.9 6.5 -- -- 6.1 HGB 8.5* 8.4* 8.8* < > 8.5* HCT 28.2* 28.7* 30.0* < > 28.2* PLATELET 316 325 -- -- 315 < > = values in this interval not displayed. Last 3 Lytes Recent Labs 09/15/20 0445 09/14/20 0351 09/13/20 1125 09/13/20 0539 NA 139 140 -- 141 K 4.2 4.4 4.2 4.3 CL 106 107 -- 108* CO2 24 24 -- 23 BUN 16 13 -- 12 CREATININE 0.99 1.11 -- 0.98 Last 3 LFTs Recent Labs 09/14/20 03509/13/20 0539 09/12/20 0143 AST 24 41* 23 ALT 28 30 21 ALKPHOS 111* 110* 120* BILITOT 1.0 1.9* 2.7* BILIDIR 0.3 0.4* 0.3 Last Ca, Mg, Phos Recent Labs 09/15/20 0445 CALCIUM 9.0 MAGNESIUM 0.92 Last 3 Coags Recent Labs 09/15/20 0445 09/14/20 0351 09/13/20 0539 PT 11.2 12.2 12.8* INR 1.0 [...] wt of 179 lbs vs. SS weights SULEMNA Shaver Pager: [phone] * Alvin Serna MD - 09/15/2020 6:36 [...] Note: Added automatically from request for surgery [id number] ??? Obesity (BMI 30.0-34.9) ??? Aortic valve [...] additional CP, dyspnea, nausea, diaphoresis, lightheadedness, dizziness. -EGD/[place] on 09/12 negative -TAVR scheduled for today [...] easily palpable Recent Labs 09/15/20 0445 09/14/20 0351 09/13/20 2250 09/13/20 0539 WBC 6.9 6.5 -- -- 6.1 HGB 8.5* 8.4* 8.8* < > 8.5* HCT 28.2* 28.7* 30.0* < > 28.2* PLATELET 316 325 -- -- 315 < > = values in this interval not displayed. Recent Labs 09/15/20 0445 09/14/20 0351 09/13/20 1125 09/13/20 0539 NA 139 140 -- 141 K 4.2 4.4 4.2 4.3 CL 106 107 -- 108* CO2 24 24 -- 23 BUN 16 13 -- 12 CREATININE 0.99 1.11 -- 0.98 Recent Labs 09/14/20 0351 09/13/20 0539 09/12/20 [...] additional CP, dyspnea, nausea, diaphoresis, lightheadedness, dizziness. -EGD/[facility] on 09/12 negative -CTA for TAVR scheduled [...] this interval not displayed. Recent Labs 09/14/20 03509/13/20 1125 09/13/20 0539 09/12/20 0143 NA 140 -- 141 -- 140 K 4.4 4.2 4.3 < > 4.2 CL 107 -- 108* -- 102 CO2 24 -- 23 -- 24 BUN 13 -- 12 -- 17 CREATININE 1.11 -- 0.98 -- 1.15 < > = values in this interval not displayed. Recent Labs 09/14/20 03509/13/20 0539 09/12/20 0143 AST 24 41* 23 ALT 28 30 21 ALKPHOS 111* 110* 120* BILITOT 1.0 1.9* 2.7* BILIDIR 0.3 0.4* 0.3 Recent Labs 09/14/20 03509/13/20 0539 09/12/20 0143 CALCIUM 8.9 8.8 9.3 MAGNESIUM 0.96 1.04 1.05 Recent Labs 09/14/20 03509/13/20 0539 09/12/20 0143 INR 1.1 1.1 1.1 PT 12.2 12.8* 12.9* PTT 28 29 25 No results for input(s): CK, TROPONINT in the last 168 hours. Recent Labs 09/14/20 0738 09/14/20 0318 09/13/20 2331 09/13/20199909/13/20 1643 09/13/20 1137 POCGLU 169 155 198 [...] RN - 09/13/2020 3:17 PM EST The patient/apprenticeship representative has been provided a list of Home Health Agencies/DME vendors which servetheir preferred geographic area. A letter describing our affiliations was reviewed with them and they were educated about their right to choose where referrals are placed. Provided patient with [facility] Star Quality Rating for Home care hand out. Patient requests referral to [facility] PHONE: [phone] FAX: [phone] Expected date of discharge: 09/18/20. Referral routed to the Lay Out Carpenter for matching with agency/vendor and to provide any required information. Chioma Vann RN, MSN Chief Pilot - Cardiology Office of Care Management Pager: [phone] Work * Mikala Borden, PT - 09/13/2020 [...] have outpt PT eval this week in [facility] to address. Patient with the following active problems: Past Medical History: Diagnosis Date ??? Actinic keratosis 08/31/2011 ??? Diabetes ??? Seborrheic keratosis 08/31/2011 ??? Severe aortic stenosis Past Surgical History: Procedure Laterality Date ??? CT PERITONEAL DRAINAGE 04/28/2020 CT Guided Drain Peritoneal 04/28/2020 [facility] RAD CAT SCAN ??? HYSTERECTOMY, VAGINAL ??? IR BILIARY TUBE CHECK/CHANGE/REMOVE 06/03/2020 IR Biliary Tube Check/Change/Remove 06/03/2020 Jos Collins, DO [facility] INTERVENTIONL RAD ??? IR CHOLECYSTOSTOMY TUBE PLACEMENT 04/22/2020 IR Cholecystostomy Tube Placement 04/22/2020 Jos Collins, DO [facility] INTERVENTIONL RAD ??? IR DRAIN CHECK/CHANGE/REMOVE 05/19/2020 IR Drain Check/Change/Remove 05/19/2020 Jos Collins, DO [facility] INTERVENTIONL RAD ??? PRO COLONOSCOPY, DIAGNOSTIC N/A 09/12/2020 COLONOSCOPY, DIAGNOSTIC performed by Mane Avila MD at [facility] ENDOSCOPY ??? PRO LAP, CHOLECYSTECTOMY/GRAPH N/A 07/15/2020 LAPAROSCOPIC CHOLECYSTECTOMY WITH CHOLANGIOGRAM (WRVU 11.47) performed by Hong Rosenthal MD at [facility] MAIN OR ??? PRO UPPER GI ENDOSCOPY, BIOPSY N/A 09/12/2020 EGD WITH BIOPSY (WRVU 2.49) performed by Mane Avila MD at [facility] ENDOSCOPY ??? 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 Precautions/Special Considerations: none specified Mobility and Positioning [...] mobility recommendations discussed with nursing. Assessment: Shannan Chaudhary was seen today for physical therapy evaluation. [...] Standard walker, Commode and may ultimately benefit rom joni francis FWW if it gives her some [...] in this evaluation. Time IN / OUT: [id number] Total Evaluation Minutes, Physical Therapy: 20(evalDyan BORDEN PT Pager: [phone] Physical Therapy Inpatient Rehabilitation Department * Alvin Serna MD - 09/13/2020 7:01 AM EST Cardiology Progress Note Date: 09/13/20 Patient Information Name: Shannan Chaudhary : 1940 PCP: Reshma Baig MD PCP Admit Date: 09/10/2020 ID: Shannan A Heidy is a 80 y.o. female presenting for [...] additional CP, dyspnea, nausea, diaphoresis, lightheadedness, dizziness. -EGD/[place] on 09/12 negative -severe muscle spasms in [...] pulses easily palpable Recent Labs 09/13/20 0539 09/12/20221609/12/20 1912 09/12/20 01409/11/20 0536 WBC 6.1 -- -- -- 7.8 -- 7.7 HGB 8.5* 8.8* 8.7* < > 9.3* < > 8.4* HCT 28.2* 29.2* 28.3* < > 30.8* < > 27.2* PLATELET 315 -- -- -- 353 -- 290 < > = values in this interval not displayed. Recent Labs 09/13/20 0539 09/12/20221609/12/20 1311 09/12/20 01409/11/20 0536 NA 141 -- -- 140 -- [...] 0.3 0.2 Recent Labs 09/13/20 0539 09/12/20 01409/11/20 0536 CALCIUM 8.8 9.3 9.1 MAGNESIUM 1.04 [...] angina Remain on single antiplatelet I will [place] back with patient/family and team once CT/surgery [...] Sarah Garland - 09/11/2020 7:52 PM EST Leather Parts Matcher Encounter Note Patient Name: Shannan Chaudhary : [id number] MR#: [id number] Admit Date: 09/10/2020 4:42 PM Hospital Day [...] Time in Direct Care: 25 minutes Sarah Garland 09/11/2020 * Alvin Serna MD - 09/11/2020 [...] Will f/u FOBT and GI evaluation-plan for EGD/[place] tomorrow. Will also be worked up for [...] given acute anemia -GI to evaluate with EGD/[place] tomorrow. Appreciate recs. ?? Diet: Clear Liquid [...] MD Gastroenterology PGY-6 09/12/2020 1:48 PM Pager #[phone] * Carol Reyna MD - 09/10/2020 10:37 PM EST Images from the original note were not included. Cardiovascular Medicine Admission History and Physical Patient Name: Shannan Chaudhary Service: S2 Team Responsible Attending: EAMON MOSER JWAN, MD PCP: Reshma Baig MD PCP phone #: [phone] ID/Chief Complaint: Shannan Chaudhary is a 80 [...] mL 2 ??? blood sugar diagnostic strips (SoThreeTOUCH ULTRA TEST) Strip 1 each by Other [...] No obvious rashs/lesions/ecchymoses/petechiae Laboratory: CBC: Recent Labs 09/10/20 1925 09/10/20 1442 06/25/20 0513 WBC 6.4 7.8 5.7 [...] interval not displayed. LFT's: Recent Labs 09/10/20 1442 06/25/20 0513 05/04/20 0518 04/20/20 0243 BILITOT 1.1 [...] this interval not displayed. 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 Will be worked up for TAVR given critical that isdorcaskely playing a significant role in her current [...] Meds) - GI consult for EGD +/- [place] (Consulted, need to discuss) ENDO #IDDM2 (A1c [...] Carol Reyna MD PGY2, Cardiology S2, Pager [phone] 09/11/2020 Associated attestation - Abiodun Chun MD [...] follow up appointments with her surgeon and teen counselor today, who identified her abnormally low hemoglobin [...] components within normal limits RAPID COVID-19 PCR ([facility]) TYPE AND SCREEN ([facility]/CGP/[facility]HIK) CBC (WITH DIFF) ABO/RH TYPING ANTIBODY SCREEN [...] Hurtado MD - 09/18/2020 2:08 PM EST [facility] SECTION OF CARDIAC SURGERY OPERATIVE REPORT 09/15/20 ? PATIENT NAME:??Shannan Farleyc?1940?? MR#:??[id number] ? REFERRING PHYSICIAN:?? Reshma Baig MD [address] [place] [address] ?? PRE-OPERATIVE DIAGNOSIS: Severe aortic stenosis ? POST-OPERATIVE DIAGNOSIS: Same ? PROCEDURE: ?? 1. Implantation of catheter-delivered prosthetic aortic heart valve; percutaneous femoral artery approach (23??mm Bobo SAPIEN3 transcatheter heart valve) ? SURGEON: Pan Hurtado MD ? TOURIST INFORMATION ASSISTANT: ?? Esau Rahman M.D. ? ANESTHESIA:? Conscious sedation ? CLINICAL HISTORY:? This is a??80-year-old??woman with aortic stenosis. The patient was evaluated for TAVR and found blane an appropriate candidate and is now taken to the blood and plasma laboratory assistant for transcatheter aortic valve replacement using the [...] performed. The??right??femoral??artery was accessed percutaneously and a 6-Chadian sheath placed.??Additionally, the??left??common femoral??artery and??left??femoral??vein were accessed percutaneously and 6-Chadian sheaths placed. ? The patient was systemically heparinized with 100 units per kg of IV heparin to goal ACT greater than 250. A 6-Chadian pigtail catheter is then passed up from the??left femoral??arterial sheath and positioned in the right coronary sinus. A transvenous pacing lead is then advanced from the left??femoral vein up to the right ventricle. The #6-Chadian right femoral sheath is then upsized for a 14-Chadian Bobo E-sheath over a Alina wire. A root angiogram was shot, and the optimal view for visualization of the aortic root was obtained. ? The aortic valve was then crossed using a straight-tip wire and an AL- 2??catheter. The straight wire is exchanged for a long flexible J-tip wire and the AL-2??exchanged for a 6-Chadian angled pigtail catheter. A stiff wire was positioned in the apex of the LV under NEELY imaging. Care is taken to avoid contact with the ventricular wall with the transition point of the wire to avoid perforation. The C-arm is then changed back to the ideal imaging plane in [place]IAN. ? A 23-mm Bobo SAPIEN3 device is [...] catheters are removed over a wire. The #14-Chadian introducer sheath is removed, and the??right??common femoral arteriotomy closed percutaneously two??ProGlide closure devices. After holding direct pressure for 20 minutes there was no evidence of bleeding from the closure site. ? Protamine is administered. Hemostasis is obtained. ? All sponge, needle, and instrument counts are reported correct at the end of the case. The patient is taken to blood and plasma laboratory assistant recovery in stable condition at the end of procedure. ? and??I??jointly performed the procedure and all of the critical components ?? Attestation: Case Date: 09/15/2020 PAN HURTADO MD 09/23/2020 * Brief Op Note - Pan Hurtado MD - 09/18/2020 2:08 PM EST Brief Operative Note Patient Name: Shannan Chaudhary : [id number] MR#: [id number] Case Date: 09/15/2020 Surgeon: Surgeon(s) and Role: Panel 1: * Esau Rahman MD - Primary * Dago Merchant PA - Physician Commercial Parts Professional Panel 2: * Pan Hurtado MD - [...] Outcome (s) achieved Date Met: 09/18/20 09/18/20 1778 Coping/Psychosocial Plan Of Care Reviewed With patient [...] Nieto RN - 09/17/2020 12:28 PM EST [facility] CARDIAC REHABILITATION Shannan Chaudhary was seen today regarding participation in the outpatient Phase 2 Cardiac Rehabilitation at [facility]. The patient agrees to a referral [...] EST Brief Operative Note Patient Name: Shannan Farleyc : [id number] MR#: [id number] Case Date: 09/15/2020 Surgeon: Surgeon(s) and Role: [...] Hurtado and Amanda present during case, service teen counselor Dr Chun, and with the patient and [...] the aortic arch to position across the beaver aortic valve. Rapid ventricular pacing was instituted, [...] Review Outcome: Ongoing (Interventions Implemented as Appropriate) 09/14/201818 Coping/Psychosocial Plan Of Care Reviewed With patient [...] Outcome: Ongoing (Interventions Implemented as Appropriate) 09/13/20 0750 Safety Interventions Isolation Precautions standard precautions maintained [...] with a PERC tube followed by dalia hernandez in June. She was seen in clinic [...] DRAINAGE 04/28/2020 CT Guided Drain Peritoneal 04/28/2020 [facility] RAD CAT SCAN ??? HYSTERECTOMY, VAGINAL ??? IR BILIARY TUBE CHECK/CHANGE/REMOVE 06/03/2020 IR Biliary Tube Check/Change/Remove 06/03/2020 Jos Collins, DO [facility] INTERVENTIONL RAD ??? IR CHOLECYSTOSTOMY TUBE PLACEMENT 04/22/2020 IR Cholecystostomy Tube Placement 04/22/2020 Jos Collins, DO [facility] INTERVENTIONL RAD ??? IR DRAIN CHECK/CHANGE/REMOVE 05/19/2020 IR Drain Check/Change/Remove 05/19/2020 Jos Collins, DO [facility] INTERVENTIONL RAD ??? PRO COLONOSCOPY, DIAGNOSTIC N/A 09/12/2020 COLONOSCOPY, DIAGNOSTIC performed by Mane Avila MD at [facility] ENDOSCOPY ??? PRO LAP, CHOLECYSTECTOMY/GRAPH N/A 07/15/2020 LAPAROSCOPIC CHOLECYSTECTOMY WITH CHOLANGIOGRAM (WRVU 11.47) performed by Hong Rosenthal MD at [facility] MAIN OR ??? PRO UPPER GI ENDOSCOPY, BIOPSY N/A 09/12/2020 EGD WITH BIOPSY (WRVU 2.49) performed by Mane Avila MD at [facility] ENDOSCOPY ??? PRO UPPER GI ENDOSCOPY, DIAGNOSTIC N/A 05/03/2020 EGD, UPPER GI ENDOSCOPY performed by Brigitte Graf MD at [facility] ENDOSCOPY Social History: Social History Tobacco Use ??? Smoking status: Never Smoker ??? Smokeless tobacco: Never Used Substance Use Topics ??? Alcohol use: Not Currently Comment: occassional ??? Drug use: Never Social History Social History Narrative ??? Not on file Pentecostal - denies Family History: History reviewed. No [...] Outcome: Ongoing (Interventions Implemented as Appropriate) 09/13/20 0437 Coping/Psychosocial Plan Of Care Reviewed With patient [...] Avila MD - 09/12/2020 10:40 PM EST [facility] Operative Note Patient Name: Shannan Farleyc : [id number] MR#: [id number] Case Date: 09/12/2020 Surgeon: Surgeon(s) and Role: [...] EVALUATION: Ongoing Goal: Fall Prevention-Safe Patient Handling 09/11/20 19409/12/20 0200 Campos Fall Risk History of Falling [...] Device Utilized none -- Goal: Infection Control 09/11/20 194 Safety Interventions Isolation Precautions standard precautions maintained [...] EST Office of Care Management Initial Assessment Director Of Physiotherapy Services DAMARIS AVILA RN reviewed record and discussed [...] for doing Advance Directives. Provided copy(ies) of [place] [employer] Advance Directives Taking Steps booklet [...] Resources: All 3 adult children supportive(2 in [place], 1 in [place])as well as adult grandchildren Behavioral Health History: none noted Substance Use/Abuse: Per H+P never smoked and not using ETOH, no use of illicits Other Pertinent/Service Specific Information: none Health/Prescription Coverage: Primary Insurance: [employer] [place] Secondary Insurance: MEDICARE Prescription Coverage: [employer] w BCBS or ? Medicare D Preferred Pharmacy: not addressed Other: food and housing secure Primary Care Provider: Reshma Baig MD [phone] Patient/Caregiver Goals of Treatment: feel better, figure this out Potential Needs for Transition of Care: Rehab/SNF: NA Home Health: will discuss; agencies serving her town are [facility]; not anticipated DME: none Dialysis: NA Community [...] and assist with transition of care planning. Director Of Physiotherapy Services DAMARIS AVILA RN Pager: [phone] * Consult Note - Mane Avila MD [...] file Gets together: Not on file Attends islam service: Not on file Active member of [...] Sitting Pulse: [phone] Resp: 21 18 14 17 Temp: 36.8 ??C (98.2 [...] clear liquids only and then NPO at MA - Colonoscopy prep with 238 g miralax mixed into 64 oz of gatorade - Active T&S, maintain 2 large bore IVs - Trend H/H, maintain Hgb >8 - Continue PPI BID The plan as outlined above was discussed with Dr. Avila. The recommendations were discussed with the primary team. Asha Powell MD Gastroenterology PGY-6 09/11/2020 11:34 AM Pager #[phone] I have seen and evaluated the patient with Dr. Powell. I have reviewed the fellow's history during the encounter and I agree with the details as written above. My physical examination confirms the above findings. The assessment and plan were formulated in discussion with me at the time of the encounter and I agree with them as documented. Mane Avila MD, MS wet roller Field Mechanic, Gastroenterology and Hepatology * Plan of Care [...] PATHOLOGY REPORT Routine 09/12/2020 2:04 PM EST HC VENIPUNCTURE Routine 09/12/2020 1:11 PM EST [...] EST HC CBC,PLT & AUTO DIFF Routine 01/17/202 1 1:43 AM EST HC MAGNESIUM, SERUM Routine [...] 09/10/2020 10:40 PM EST RAPID COVID-19 PCR ([facility]) STAT 09/10/2020 9:44 PM EST PREPARE [...] (Bezet) 521 ms MUSE SYSTEM Calculated P [place] 23 degrees MUSE SYSTEM Calculated R [place] -33 degrees MUSE SYSTEM Calculated T [place] 11 degrees MUSE SYSTEM INTERPRETATION Normal sinus [...] A ? (Age): 1940(80y) Med Rec#: ? [id number] ?Sex: ?F ? Site Loc: ? [facility] ?Ht / Wt: ??158(cm)/79(kg) Pt. Loc: ?Echo Lab ?BSA: ?1.81 Study Date: ?? 10/18/2020 ?Pt. Type: Outpatient Tape: ? Referring: Pan Hurtado Reading: Fang Law ([id number]) Engineering Operations Leader: Wilfredo Santiago [facility] Diagnosis: *Presence of prosthetic heart valve (Z95.2) [...] Vmax ?1.19 ? m/sec ? MV deceleration [id number] ? msec ? MV A-wave Vmax ?1.68 [...] ? Mid-Inferior ?Normal ? Mid-Inferoseptal ?Normal ? [place]-Septal ? Normal ? [place]-Anterior ? Normal ? [place]-Lateral ?Normal ? [place]-Inferior ? Normal ? [place]-Tip ?Normal ? This report has been electronically signed by: Fang Law MD ? 10/18/2020 14:41:12 Images reviewed and interpretation verified [facility] Cardiac Ultrasound Laboratory Procedure Note Fang Law MD - 10/18/2020 Amended Report Procedure: Transthoracic Echocardiogram Patient: HEIDY ANDERSON(Age): 1940(80y) Med Rec#: [id number] Sex: F Site Loc: [facility] Ht / Wt: 158(cm)/79(kg) Pt. Loc: Echo Lab BSA: 1.81 Study Date: 10/18/2020 Pt. Type: Outpatient Tape: Referring: Pan Hurtado Reading: Fang Law ([id number]) Engineering Operations Leader: Wilfredo Santiago [facility] Diagnosis: *Presence of prosthetic heart valve (Z95.2) [...] MV E-wave Vmax 1.19 m/sec MV deceleration [id number] msec MV A-wave Vmax 1.68 m/sec MV [...] Normal Mid-Posterolateral Normal Mid-Inferior Normal Mid-Inferoseptal Normal [place]-Septal Normal [place]-Anterior Normal [place]-Lateral Normal [place]-Inferior Normal [place]-Tip Normal This report has been electronically signed by: Fang Law MD 10/18/2020 14:41:12 Images reviewed and interpretation verified [facility] Cardiac Ultrasound Laboratory Pan Hurtado MD ECHO ORDERABLES * (ABNORMAL) Comprehensive metabolic panel (non-fasting) (10/18/2020 11:52 AM EST) Glucose Lvl 302(H) 65 - 199 mg/dL [facility] Comment:Diabetes: >=200 mg/d L plus symptoms BUN 18 8 - 18 mg/dL [facility] Creatinine 0.92 0.70 - 1.20 mg/dL [facility] Sodium 139 135 - 145 mmol/L [facility] Potassium 4.5 3.5 - 5.0 mmol/L [facility] Comment: Please note: ??Patients with WBC >100,000 may have falsely elevated Potassium levels. ??For accurate Potassium quantification in these patients send serum separator tube (gold top) for subsequent determinations. ??Contact the Clinical Chemistry Laboratory if there are any questions. Chloride 104 98 - 107 mmol/L [facility] CO2 23 22 - 31 mmol/L [facility] Anion Gap 12 5 - 15 mmol/L [facility] Calcium 9.3 8.5 - 10.5 mg/dL [facility] Total Protein 6.9 6.1 - 8.0 gm/dL [facility] Albumin 4.5 3.2 - 5.2 gm/dL [facility] AST 36(H) 0 - 30 unit/L [facility] ALT 44(H) 0 - 30 unit/L [facility] Alk Phos 125(H) 35 - 105 unit/L [facility] Total Bilirubin 0.7 0.2 - 1.3 mg/dL [facility] Estimated GFR 59(L) >=60 mL/min/1. 73 m?? [facility] [...] MD CHEMISTRY ORDERABL ES Performing Organization Address City/[facility]/ZIP Co de Phone Number [facility] [place] [address] * (ABNORMAL) POCT Glucose (09/18/2020 12:21 PM EST) Pathologist [facility] POC Glucose 235(H) 65 - 199 mg/dL [facility] Comment: Supplemental ranges: <140 mg/dL before meals <180 mg/dL all other times of the day Blood specimen (specimen) 09/18/2020 12:21 PM EST 09/18/2020 12:21 PM EST Pan Hurtado MD POINT OF CARE TEST ORDERABLES [facility] [place] [place] [address] * (ABNORMAL) POCT Glucose (09/18/2020 7:49 AM EST) Pathologist [facility] POC Glucose 207(H) 65 - 199 mg/dL [facility] Comment: Supplemental ranges: <140 mg/dL before meals <180 mg/dL all other times of the day Blood specimen (specimen) 09/18/2020 7:49 AM EST 09/18/2020 7:49 AM EST Pan Hurtado MD POINT OF CARE TEST ORDERABLES Performing Organization Address City/State/[facility] Co de Phone Number [facility] [place] [address] * (ABNORMAL) Hemogram (09/18/2020 5:35 AM EST) [facility] WBC 7.1 4.0 - 9.5 x10(3)/[facility] LABORATORY RBC 3.47(L) 4.00 - 5.21 x10(6)/[facility] LABORATORY Hemoglobin 8.2(L) 11.7 - 15.5 gm/dL [facility] Hematocrit 27.2(L) 35.7 - 45.8 % [facility] MCV 78.4(L) 82.6 - 94.4 fL [facility] MCH 23.6(L) 27.1 - 32.0 pg [facility] MCHC 30.1(L) 31.7 - 35.0 gm/dL [facility] Platelets 152 145 - 357 x10(3)/[facility] RDWSD 71.8(H) 37.0 - 46.0 [facility] LABORATORY RDWCV 26.5(H) 11.5 - 14.1 % [facility] MPV 10.7 7.6 - 12.9 [facility] LABORATORY nRBC % Auto 0.0 % [facility]ORY nRBC Abs Auto 0.000 0.000 - 0.000 x10(3)/[facility] LABORATORY Blood specimen (specimen) 09/18/2020 5:35 AM EST 09/18/2020 5:47 AM EST Narrative Resulting Agency Comment Spec In Lab Pan Hurtado MD HEMATOLOGY ORDERAB LES Performing Organization Address City/[facility] Co de Phone Number [facility] [place] [address] * POCT Glucose (09/18/2020 4:00 AM EST) POC Glucose 148 65 - 199 mg/dL [facility] Comment: Supplemental ranges: <140 mg/dL before meals <180 mg/dL all other times of the day Blood specimen (specimen) 09/18/2020 4:00 AM EST 09/18/2020 4:00 AM EST Pan Hurtado MD POINT OF CARE TEST ORDERABLES Performing Organization Address [facility] Co de Phone Number [facility] [place] [address] * (ABNORMAL) POCT Glucose (09/18/2020 12:55 AM EST) POC Glucose 207(H) 65 - 199 mg/dL [facility] Comment: Supplemental ranges: <140 mg/dL before meals <180 mg/dL all other times of the day Blood specimen (specimen) 09/18/2020 12:55 AM EST 09/18/2020 12:55 AM EST Pan Hurtado MD POINT OF CARE TEST ORDERABLES Performing Organization Address [facility] Co de Phone Number [facility] [place] [address] * (ABNORMAL) POCT Glucose (09/17/2020 7:42 PM EST) POC Glucose 217(H) 65 - 199 mg/dL [facility] Comment: Supplemental ranges: <140 mg/dL before meals <180 mg/dL all other times of the day Blood specimen (specimen) 09/17/2020 7:42 PM EST 09/17/2020 7:42 PM EST Pan Hurtado MD POINT OF CARE TEST ORDERABLES Performing Organization Address City/[facility] Co de Phone Number [facility] [place] [address] * POCT Glucose (09/17/2020 4:17 PM EST) POC Glucose 165 65 - 199 mg/dL [facility] Comment: Supplemental ranges: <140 mg/dL before meals <180 mg/dL all other times of the day Blood specimen (specimen) 09/17/2020 4:17 PM EST 09/17/2020 4:17 PM EST Pan Hurtado MD POINT OF CARE TEST ORDERABLES Performing Organization Address [facility] de Phone Number [facility] [place] [address] * POCT Glucose (09/17/2020 3:00 PM EST) POC Glucose 178 65 - 199 mg/dL [facility] Comment: Supplemental ranges: <140 mg/dL before meals <180 mg/dL all other times of the day Blood specimen (specimen) 09/17/2020 3:00 PM EST 09/17/2020 3:00 PM EST Pan Hurtado MD POINT OF CARE TEST ORDERABLES Performing Organization Address City/[facility] Co de Phone Number [facility] [place] [address] * (ABNORMAL) POCT Glucose (09/17/2020 11:28 AM EST) POC Glucose 251(H) 65 - 199 mg/dL [facility] Comment: Supplemental ranges: <140 mg/dL before meals <180 mg/dL all other times of the day Blood specimen (specimen) 09/17/2020 11:28 AM EST 09/17/2020 11:28 AM EST Pan Hurtado MD POINT OF CARE TEST ORDERABLES Performing Organization Address City/[facility]/ZIP Co de Phone Number [facility] [address] * EKG 12 Lead (09/17/2020 9:03 AM EST) Ventricular rate 89 BPM MUSE SYSTEM Atrial Rate 89 BPM MUSE SYSTEM P-R Interval 160 ms MUSE SYSTEM QRS Duration 134 ms MUSE SYSTEM Q-T Interval 448 ms MUSE SYSTEM QTC Calculated (Bezet) 545 ms MUSE SYSTEM Calculated P [place] 36 degrees MUSE SYSTEM Calculated R [place] -41 degrees MUSE SYSTEM Calculated T [place] -3 degrees MUSE SYSTEM INTERPRETATION Normal sinus rhythm Left atrial enlargement Left axis deviation Right bundle branch block Abnormal ECG When compared with ECG of 16-SEP-2020 08:57, QRS axis Shifted left Confirmed by MD Amelie, Eusebio Shelton ([id number]) on 09/17/2020 12:57:01 PM MUSE SYSTEM 09/17/2020 9:03 AM EST 09/17/2020 12:57 PM EST Almaz Jv CROCKER ECG ORDERABLES Performing Organization Address City/[facility]/ZIP Co de Phone Number MUSE SYSTEM * POCT Glucose (09/17/2020 7:39 AM EST) [facility] POC Glucose 151 65 - 199 mg/dL [facility] Comment: Supplemental ranges: <140 mg/dL before meals <180 mg/dL all other times of the day Blood specimen (specimen) 09/17/2020 7:39 AM EST 09/17/2020 7:39 AM EST Pan Hurtado MD POINT OF CARE TEST ORDERABLES Performing Organization Address City/[facility] Co de Phone Number [facility] [place] [address] * (ABNORMAL) Differential, Automated (09/17/2020 5:29 AM EST) Pathologist [facility] [place] Neutrophils % 77.9 % [facility] Neutr Abs (ANC) 7.13(H) 1.70 - 6.10 x10(3)/[facility]ORATORY Lymphocytes % 10.2 % [facility] Lymphocytes Abs 0.9 0.9 - 3.2 x10(3)/[facility] LABORATORY Monocytes % 7.4 % [facility] Monocyte Abs 0.7 0.3 - 0.9 x10(3)/[facility] LABORATORY Eosinophils % 3.5 % [facility] Eosinophils Abs 0.3 0.0 - 0.4 x10(3)/[facility] LABORATORY Basophils % 0.5 % [facility] Basophils Abs 0.0 0.0 - 0.1 x10(3)/[facility] LABORATORY Immature Gran % 0.50 % [facility] Comment: Immature granulocytes(IG's)percentage and absolute count will include metamyelocytes, myelocytes, and promyelocytes. Blood smears from CBCs yielding IG's will be scanned manually for concordance. If this scan disagrees with the automated IG or if promyelocytes are noted, a manual differential will be performed. Nanci Gran Abs 0.05(H) 0.00 - 0.04 x10(3)/[facility] LABORATORY Blood specimen (specimen) 09/17/2020 5:29 AM EST 09/17/2020 5:41 AM EST Narrative Resulting Agency Comment Spec In Lab Almaz Carias ELECTROLYSIS OPERATOR HEMATOLOGY ORDERAB LES [facility] [place] [address] * (ABNORMAL) Hemogram (09/17/2020 5:29 AM EST) WBC 9.2 4.0 - 9.5 x10(3)/[facility]ORY RBC 3.78(L) 4.00 - 5.21 x10(6)/[facility] Hemoglobin 8.7(L) 11.7 - 15.5 gm/dL [facility] Hematocrit 28.8(L) 35.7 - 45.8 % [facility] MCV 76.2(L) 82.6 - 94.4 fL [facility] MCH 23.0(L) 27.1 - 32.0 pg [facility] MCHC 30.2(L) 31.7 - 35.0 gm/dL [facility] Platelets 161 145 - 357 x10(3)/[facility] LABORATORY RDWSD 67.0(H) 37.0 - 46.0 fL [facility] RDWCV 26.0(H) 11.5 - 14.1 % [facility] MPV 9.9 7.6 - 12.9 [facility] LABORATORY nRBC % Auto 0.0 % [facility] nRBC Abs Auto 0.000 0.000 - 0.000 x10(3)/[facility] Blood specimen (specimen) 09/17/2020 5:29 AM EST 09/17/2020 5:41 AM EST Narrative Resulting Agency Comment Spec In Lab Almaz Carias ELECTROLYSIS OPERATOR HEMATOLOGY ORDERAB LES [facility] [place] [address] * (ABNORMAL) Basic Metabolic Panel (non-fasting) (09/17/2020 5:29 AM EST) Glucose Lvl 146 65 - 199 mg/dL [facility] Comment:Diabetes: >=200 mg/d L plus symptoms BUN 15 8 - 18 mg/dL [facility] Creatinine 0.93 0.70 - 1.20 mg/dL [facility] Sodium 139 135 - 145 mmol/L [facility] Potassium 3.9 3.5 - 5.0 mmol/L [facility] Comment: Please note: ??Patients with WBC >100,000 may have falsely elevated Potassium levels. ??For accurate Potassium quantification in these patients send serum separator tube (gold top) for subsequent determinations. ??Contact the Clinical Chemistry Laboratory if there are any questions. Chloride 108(H) 98 - 107 mmol/L [facility] CO2 21(L) 22 - 31 mmol/L [facility] Anion Gap 10 5 - 15 mmol/L [facility] Calcium 8.3(L) 8.5 - 10.5 mg/dL [facility] Estimated GFR 58(L) >=60 mL/min/1. 73 m?? [facility] [...] Agency Comment Spec In Lab Almaz Carias OIB CHEMISTRY ORDERABL ES [facility] [place] [address] * (ABNORMAL) Troponin (09/17/2020 5:29 AM EST) Troponin-T 0.02(H) 0.00 - 0.00 ng/mL [facility] Comment: The 99th percentile for Troponin T is less than 0.01 ng/mL, any detectable cTnT concentration using this assay should be considered elevated. According to the third universal definition of myocardial infarction the following criteria with a clinical presentation consistent with acute myocardial ischemia meets the diagnosis for a myocardial infarction (ND). Detection of a rise and/or fall of cTnT, with at least one value greater than the 99th percentile (> or = 0.01) and with at least one of the following ?? Symptoms of ischemia ?? New or presumed new significant YD-aacdgsn-R wave (ST-T) changes or new left bundle [...] additional sample may be indicated. Reference: Third Dante Definition of Myocardial Infarction. Journal of the [employer] 2012;60:1581-98 Blood specimen (specimen) 09/17/2020 5:29 AM EST 09/17/2020 5:41 AM EST Narrative Resulting Agency Comment Spec In Lab Almaz Carias APRN CHEMISTRY ORDERABL ES Performing Organization Address City/[facility]/ZIP Co de Phone Number [facility] [place] [address] * POCT Glucose (09/17/2020 3:28 AM EST) POC Glucose 150 65 - 199 mg/dL [facility] Comment: Supplemental ranges: <140 mg/dL before meals <180 mg/dL all other times of the day Blood specimen (specimen) 09/17/2020 3:28 AM EST 09/17/2020 3:28 AM EST Pan Hurtado MD POINT OF CARE TEST ORDERABLES Performing Organization Address City/[facility]/ZIP Co de Phone Number [facility] [place] [address] * POCT Glucose (09/17/2020 12:02 AM EST) POC Glucose 159 65 - 199 mg/dL [facility] Comment: Supplemental ranges: <140 mg/dL before meals <180 mg/dL all other times of the day Blood specimen (specimen) 09/17/2020 12:02 AM EST 09/17/2020 12:02 AM EST Pan Hurtado MD POINT OF CARE TEST ORDERABLES Performing Organization Address City/[facility]/ZIP Co de Phone Number [facility] [place] [address] * POCT Glucose (09/16/2020 8:47 PM EST) POC Glucose 190 65 - 199 mg/dL [facility] Comment: Supplemental ranges: <140 mg/dL before meals <180 mg/dL all other times of the day Blood specimen (specimen) 09/16/2020 8:47 PM EST 09/16/2020 8:47 PM EST Pan Hurtado MD POINT OF CARE TEST ORDERABLES Performing Organization Address [facility] Co de Phone Number [facility] [address] * POCT Glucose (09/16/2020 4:00 PM EST) POC Glucose 186 65 - 199 mg/dL [facility] Comment: Supplemental ranges: <140 mg/dL before meals <180 mg/dL all other times of the day Blood specimen (specimen) 09/16/2020 4:00 PM EST 09/16/2020 4:00 PM EST Pan Hurtado MD POINT OF CARE TEST ORDERABLES Performing Organization Address City/[facility] Co de Phone Number [facility] [place] [address] * POCT Glucose (09/16/2020 2:11 PM EST) POC Glucose 181 65 - 199 mg/dL [facility] Comment: Supplemental ranges: <140 mg/dL before meals <180 mg/dL all other times of the day Blood specimen (specimen) 09/16/2020 2:11 PM EST 09/16/2020 2:11 PM EST Pan Hurtado MD POINT OF CARE TEST ORDERABLES [facility] [place] [address] * XR Chest PA & Lateral (Generic) [...] ? Electronically signed by: Mayte Pollack MD, [facility] ([phone]), at 09/16/2020 2:29 PM Narrative 09/16/2020 2:29 [...] please contact the number below. Almaz Carias ELECTROLYSIS OPERATOR IMG DX ORDERABLES * (ABNORMAL) POCT Glucose (09/16/2020 11:51 AM EST) Pathologist [facility] [place] POC Glucose 247(H) 65 - 199 mg/dL [facility] Comment: Supplemental ranges: <140 mg/dL before meals <180 mg/dL all other times of the day Blood specimen (specimen) 09/16/2020 11:51 AM EST 09/16/2020 11:51 AM EST Pan Hurtado MD POINT OF CARE TEST ORDERABLES [facility] [place] [address] * EKG 12 Lead (09/16/2020 8:57 AM EST) Pathologist [facility] [place] Ventricular rate 66 BPM MUSE SYSTEM Atrial Rate 66 BPM MUSE SYSTEM P-R Interval 174 ms MUSE SYSTEM QRS Duration 132 ms MUSE SYSTEM Q-T Interval 502 ms MUSE SYSTEM QTC Calculated (Bezet) 526 ms MUSE SYSTEM Calculated P [place] 32 degrees MUSE SYSTEM Calculated R [place] -17 degrees MUSE SYSTEM Calculated T [place] -54 degrees MUSE SYSTEM INTERPRETATION Normal sinus rhythm Right bundle branch block Abnormal ECG When compared with ECG of 16-SEP-2020 05:52, (unconfirmed) No significant change was found Confirmed by MD Ramos Daniel ([id number]) on 09/16/2020 11:26:44 PM MUSE SYSTEM 09/16/2020 8:57 AM EST 09/16/2020 11:26 PM EST Pan Hurtado MD ECG ORDERABLES MUSE SYSTEM * POCT Glucose (09/16/2020 8:20 AM EST) POC Glucose 119 65 - 199 mg/dL [facility] Comment: Supplemental ranges: <140 mg/dL before meals <180 mg/dL all other times of the day Blood specimen (specimen) 09/16/2020 8:20 AM EST 09/16/2020 8:20 AM EST Pan Hurtado MD POINT OF CARE TEST ORDERABLES Performing Organization Address [facility] Co de Phone Number [facility] [place] [address] * EKG 12 Lead (09/16/2020 5:52 AM EST) Ventricular rate 66 BPM MUSE SYSTEM Atrial Rate 66 BPM MUSE SYSTEM P-R Interval 164 ms MUSE SYSTEM QRS Duration 130 ms MUSE SYSTEM Q-T Interval 496 ms MUSE SYSTEM QTC Calculated (Bezet) 519 ms MUSE SYSTEM Calculated P [place] 34 degrees MUSE SYSTEM Calculated R [place] -17 degrees MUSE SYSTEM Calculated T [place] -16 degrees MUSE SYSTEM INTERPRETATION Normal sinus rhythm Right bundle branch block Abnormal ECG When compared with ECG of 15-SEP-2020 15:18, (unconfirmed) No significant change was found I personally reviewed the tracing and edited the fellows interpretation Confirmed by fellow Anam Cazares ([id number]) on 09/16/2020 4:52:54 PM Confirmed by MD Amelie, Eusebio Shelton ([id number]) on 09/16/2020 7:19:19 PM MUSE SYSTEM 09/16/2020 5:52 AM EST 09/16/2020 7:19 PM EST Pan Hurtado MD ECG ORDERABLES Performing Organization Address City/[facility] Co de Phone Number MUSE SYSTEM * POCT Glucose (09/16/2020 4:07 AM EST) POC Glucose 132 65 - 199 mg/dL [facility] Comment: Supplemental ranges: <140 mg/dL before meals <180 mg/dL all other times of the day Blood specimen (specimen) 09/16/2020 4:07 AM EST 09/16/2020 4:07 AM EST Pan Hurtado MD POINT OF CARE TEST ORDERABLES [facility] [place] [address] * (ABNORMAL) Differential, Automated (09/16/2020 2:20 AM EST) Neutrophils % 88.7 % [facility] Neutr Abs (ANC) 15.05(H) 1.70 - 6.10 x10(3)/ L [facility] Lymphocytes % 4.5 % [facility] Lymphocytes Abs 0.8(L) 0.9 - 3.2 x10(3)/ L [facility] Monocytes % 5.3 % [facility] Monocyte Abs 0.9 0.3 - 0.9 x10(3)/ L [facility] Eosinophils % 0.5 % [facility] Eosinophils Abs 0.1 0.0 - 0.4 x10(3)/ L [facility] Basophils % 0.4 % [facility] Basophils Abs 0.1 0.0 - 0.1 x10(3)/ L [facility] Immature Gran % 0.60 % [facility] Comment: Immature granulocytes(IG's)percentage and absolute count will include metamyelocytes, myelocytes, and promyelocytes. Blood smears from CBCs yielding IG's will be scanned manually for concordance. If this scan disagrees with the automated IG or if promyelocytes are noted, a manual differential will be performed. Nanci Gran Abs 0.10(H) 0.00 - 0.04 x10(3)/mc L [facility] Blood specimen (specimen) 09/16/2020 2:20 AM EST 09/16/2020 2:30 AM EST Narrative Resulting Agency Comment Spec In Lab Carol Reyna MD HEMATOLOGY ORDERABLES [facility] [place] [address] * (ABNORMAL) Hemogram (09/16/2020 2:20 AM EST) WBC 17.0(H) 4.0 - 9.5 x10(3)/[facility] RBC 4.26 4.00 - 5.21 x10(6)/[facility] Hemoglobin 9.9(L) 11.7 - 15.5 gm/dL [facility] Hematocrit 31.6(L) 35.7 - 45.8 % [facility] MCV 74.2(L) 82.6 - 94.4 [facility]ORY MCH 23.2(L) 27.1 - 32.0 pg [facility] MCHC 31.3(L) 31.7 - 35.0 gm/dL [facility] Platelets 247 145 - 357 x10(3)/[facility] RDWSD 61.8(H) 37.0 - 46.0 [facility] RDWCV 24.9(H) 11.5 - 14.1 % [facility] MPV 9.9 7.6 - 12.9 [facility] nRBC % Auto 0.1 % [facility] nRBC Abs Auto 0.020(H) 0.000 - 0.000 x10(3)/[facility] Blood specimen (specimen) 09/16/2020 2:20 AM EST 09/16/2020 2:30 AM EST Narrative Resulting Agency Comment Spec In Lab Carol Reyna MD HEMATOLOGY ORDERABLES [facility] [place] [place] [address] * Magnesium (09/16/2020 2:20 AM EST) Magnesium 0.80 0.69 - 1.07 mmol/L [facility] Blood specimen (specimen) 09/16/2020 2:20 AM EST 09/16/2020 2:30 AM EST Narrative Resulting Agency Comment Spec In Lab Amarilys Cerna MD CHEMISTRY ORDERABLES [facility] [place] [address] * (ABNORMAL) BMP w/fasting Glucose (09/16/2020 2:20 AM EST) Glucose Fasting 136(H) 65 - 99 mg/dL [facility] Comment: ?Fasting* Glucose Interpretive Criteria [...] of Diabetes Mellitus, Position Statement from the [employer]. ??Diabetes Care, Volume 33, Supplement 1, Aug 2009 BUN 18 8 - 18 mg/dL [facility] Creatinine 0.99 0.70 - 1.20 mg/dL [facility] Sodium 137 135 - 145 mmol/L [facility] Potassium 4.0 3.5 - 5.0 mmol/L [facility] Comment: Please note: ??Patients with WBC >100,000 may have falsely elevated Potassium levels. ??For accurate Potassium quantification in these patients send serum separator tube (gold top) for subsequent determinations. ??Contact the Clinical Chemistry Laboratory if there are any questions. Chloride 107 98 - 107 mmol/L [facility] CO2 22 22 - 31 mmol/L [facility] Anion Gap 8 5 - 15 mmol/L [facility] Calcium 8.3(L) 8.5 - 10.5 mg/dL [facility] Estimated GFR 54(L) >=60 mL/min/1. 73 m?? [facility] [...] Cerna MD CHEMISTRY ORDERABLES Performing Organization Address [facility] [place] [address] * APTT (09/16/2020 2:20 AM EST) PTT 28 25 - 37 sec [facility] Comment: The PTT is NOT appropriate for heparin monitoring. Use the Anti-Xa level for heparin monitoring (HEP UFH) or LMWH monitoring (HEP LMW). A PTT less than 37 seconds generally indicates adequate hemostasis. Blood specimen (specimen) 09/16/2020 2:20 AM EST 09/16/2020 2:30 AM EST Narrative Resulting Agency Comment Spec In Lab Amarilys Cerna MD HEMATOLOGY ORDERABLE S Performing Organization Address City/[facility]/ZIP Co de Phone Number [facility] [place] [address] * (ABNORMAL) Prothrombin Time (09/16/2020 2:20 AM EST) PT 13.3(H) 9.4 - 12.5 sec [facility] INR 1.2 [facility] Comment: An INR <2.0 indicates [...] Lab Amarilys Cerna MD HEMATOLOGY ORDERABLE S [facility] [place] [address] * POCT Glucose (09/15/2020 11:15 PM EST) POC Glucose 146 65 - 199 mg/dL [facility] Comment: Supplemental ranges: <140 mg/dL before meals <180 mg/dL all other times of the day Blood specimen (specimen) 09/15/2020 11:15 PM EST 09/15/2020 11:15 PM EST Pan Hurtado MD POINT OF CARE TEST ORDERABLES [facility] [place] [address] * (ABNORMAL) POCT Glucose (09/15/2020 7:59 PM EST) POC Glucose 200(H) 65 - 199 mg/dL [facility] Comment: Supplemental ranges: <140 mg/dL before meals <180 mg/dL all other times of the day Blood specimen (specimen) 09/15/2020 7:59 PM EST 09/15/2020 7:59 PM EST Pan Hurtado MD POINT [place] [address] * (ABNORMAL) Hemogram (09/15/2020 3:40 PM EST) WBC 8.6 4.0 - 9.5 x10(3)/[facility] RBC 4.46 4.00 - 5.21 x10(6)/[facility] Hemoglobin 10.1(L) 11.7 - 15.5 gm/dL [facility] Hematocrit 33.9(L) 35.7 - 45.8 % [facility] MCV 76.0(L) 82.6 - 94.4 fL [facility] MCH 22.6(L) 27.1 - 32.0 pg [facility] MCHC 29.8(L) 31.7 - 35.0 gm/dL [facility] Platelets 194 145 - 357 x10(3)/[facility] RDWSD 64.4(H) 37.0 - 46.0 [facility] RDWCV 25.1(H) 11.5 - 14.1 % [facility] MPV 10.4 7.6 - 12.9 [facility] nRBC % Auto 0.7 % [facility] nRBC Abs Auto 0.060(H) 0.000 - 0.000 x10(3)/[facility] Blood specimen (specimen) 09/15/2020 3:40 PM EST 09/15/2020 4:21 PM EST Narrative Resulting Agency Comment Spec In Lab Abiodun Chun MD HEMATOLOGY ORDERABLE S [facility] [place] [address] * POCT Glucose (09/15/2020 3:28 PM EST) POC Glucose 180 65 - 199 mg/dL [facility] Comment: Supplemental ranges: <140 mg/dL before meals <180 mg/dL all other times of the day Blood specimen (specimen) 09/15/2020 3:28 PM EST 09/15/2020 3:28 PM EST Pan Hurtado MD POINT OF CARE TEST ORDERABLES [facility] [place] [place] [address] * ECHO COMPLETE (09/15/2020 3:24 PM EST) EF 70 HEART[facility] SYSTEM Anatomical Region Laterality Modality Other 09/15/2020 Narrative 09/16/2020 8:00 AM EST Procedure: ?Transthoracic Echocardiogram Patient: ?HEIDY SHANNAN A ? (Age): 1940(80y) Med Rec#: ? [id number] ?Sex: ?F ? Site Loc: ? [facility] ?Ht / Wt: ??158(cm)/78(kg) Pt. Loc: ?[facility] ?BSA: ?1.8 Study Date: ?? 09/15/2020 ?Pt. Type: Inpatient Tape: ? Referring: Esau Rahman Reading: Jos Wheeler ([id number]) Engineering Operations Leader: Danie Huff Diagnosis: *Nonrheumatic aortic (valve) stenosis [...] 09/15/2020 16:21:34 Images reviewed and interpretation verified [facility] Cardiac Ultrasound Laboratory Procedure Note Jos Wheeler MD - 09/16/2020 Procedure: Transthoracic Echocardiogram Patient: HEIDY Francis (Age): 1940(80y) Med Rec#: [id number] Sex: F Site Loc: [facility] Ht / Wt: 158(cm)/78(kg) Pt. Loc: [facility] Consult[facility] BSA: 1.8 Study Date: 09/15/2020 Pt. Type: Inpatient Tape: Referring: Esau Rahman Reading: Jos Wheeler ([id number]) Engineering Operations Leader: Danie Huff Diagnosis: *Nonrheumatic aortic (valve) stenosis [...] report has been electronically signed by: Sally Wheeler MD 09/15/2020 16:21:34 Images reviewed and interpretation verified [facility]iac Ultrasound Laboratory Abiodun Chun MD ECHO ORDERABLES * EKG 12 Lead (09/15/2020 3:18 PM EST) Ventricular rate 69 BPM MUSE SYSTEM Atrial Rate 69 BPM MUSE SYSTEM P-R Interval 156 ms MUSE SYSTEM QRS Duration 136 ms MUSE SYSTEM Q-T Interval 510 ms MUSE SYSTEM QTC Calculated (Bezet) 546 ms MUSE SYSTEM Calculated P [place] 50 degrees MUSE SYSTEM Calculated R [place] 94 degrees MUSE SYSTEM Calculated T [place] -21 degrees MUSE SYSTEM INTERPRETATION Normal sinus rhythm Right bundle branch block T wave abnormality, consider inferior ischemia Abnormal ECG When compared with ECG of 10-SEP-2020 13:18, Nonspecific T wave abnormality no longer evident in Anterolateral leads QT has lengthened Confirmed by MD Richard, Alvin ([id number]) on 09/16/2020 11:17:42 PM MUSE SYSTEM 09/15/2020 3:18 PM EST 09/16/2020 11:17 PM EST Abiodun Chun MD ECG ORDERABLES MUSE SYSTEM * CARDIAC CATHETERIZATION (09/15/2020 3:15 PM EST) Anatomical Region Laterality Modality Other Narrative 09/16/2020 6:34 PM EST ?[facility] ? Cardiac Catheterization/Intervention Report ? Patient Name: HEIDY, SHANNAN A. ? Procedure Date: 09/15/2020 ? A #: [id number] ? Primary Physician: Esau Rahman ? Case #: [id number] ? File Name: [id number] ? Catheterization Order Number: [id number] ? [facility] ? Final Report [place], [place] ? Patient Name: ? SHANNAN A. HEIDY ? ID#: ?[id number] ? : ?1940 ? Procedure Date: ? September 15, 2020 ? Case #: ? [id number] ? Room: ? 6 ? Case Physicians: ?Esau Rahman M.D. ?Start: ?13:45 ?Pan Hurtado M.D. ? Admission: ??09/10/2020 ? Discharge: ??09/18/2020 ? Referring Physician: ??Reshma Baig M.D. ? Procedures: ?* Left Heart Catheterization ?* Aortic Root Aortogram ?* Transcatheter Aortic Valve Replacement ?* Temporary Pacemaker Insertion In [facility]ant ?* Arterial Line / Sheath Insert ?* [...] was designated as ASA ?Class IV. The CSHA clinical frailty scale is 5: Mildly Frail. [...] Bobo Jemma 3 Ultra 23 mm THV (s/c=[id number]) transcatheter valve was ?inserted using standard technique. [...] dose administered prior to arrival in the blood and plasma laboratory assistant. ?Recommended anti-platelet/anti-thrombotic regimen: ?Continue clopidogrel 75 mg daily for 3 months then stop. ?Custom Protocol: After plavix is stopped, restart asa 81 mg daily. ?These recommendations are made at the time of the intervention. Patient ?and provider preferences or a changing clinical situation may require ?modification of this regimen. Consult [facility] Interventional Cardiology for ?questions. ? Conclusions: ?* [...] ?greater than 250 seconds) followed by the THV e-sheath (the sheath is 14 ?Fr for [...] the aortic arch ?to position across the beaver aortic valve. Rapid ventricular pacing was ?instituted, [...] catheterization, ?aortic root aortogram, temporary pacemaker in blood and plasma laboratory assistant, arterial line / ?sheath insert, venous line / sheath insert, transesophageal echo during ?cath, ABG, TAVR, access site angiography and vascular ultrasound. ?Pan Hurtado M.D. performed the left heart catheterization, aortic ?root aortogram, temporary pacemaker in blood and plasma laboratory assistant, arterial line / sheath ?insert, venous line / sheath insert, transesophageal echo during cath, ABG ?and TAVR. ? Esau J Coylewright, ? M.D. ? Electronically Signed by: Esau J Coylewright, M.D. ? Report Finalized: 09/16/2020 ??18:29 ? Report Last Ammended: 10/08/2020 ??11:00 ? Procedure Note Esau Rahman MD - 10/08/2020 [facility] Cardiac Catheterization/Intervention Report Patient Name: SHANNAN CHAUDHARY Procedure Date: 09/15/2020 A #: [id number] Primary Physician: Esau Rahman Case #: [id number] File Name: [id number] Catheterization Order Number: [id number] [facility] FinalReport [place], [place] Patient Name: SHANNAN CHAUDHARY ID#:[id number] :1940 Procedure Date: September 15, 2020 Case #: [id number] Room: 6 Case Physicians: Esau Rahman M.D. Start: 13:45 Pan Hurtado M.D. Admission:09/10/2020 Discharge:09/18/2020 Referring Physician: Reshma Baig M.D. Procedures: * Left Heart Catheterization * Aortic Root Aortogram * Transcatheter Aortic Valve Replacement * Temporary Pacemaker Insertion In [employer] Consultant * Arterial Line / Sheath Insert * [...] patient was designated asASA Class IV. The [facility] clinical frailty scale is 5: [...] Bobo Jemma 3 Ultra 23 mm THV (s/v=[id number]) transcathetervalve was inserted using standard technique. Protamine [...] dose administered prior to arrival in the blood and plasma laboratory assistant. Recommended anti-platelet/anti-thrombotic regimen: Continue clopidogrel 75 mg daily for 3 months then stop. Custom Protocol: After plavix is stopped, restart asa 81 mg daily. These recommendations are made at the time of the intervention.Patient and provider preferences or a changing clinical situation mayrequire modification of this regimen. Consult [facility] Interventional Cardiologyfor questions. Conclusions: * Severe aortic [...] around the aorticarch to position across the beaver aortic valve. Rapid ventricular pacingwas instituted, and [...] heartcatheterization, aortic root aortogram, temporary pacemaker in blood and plasma laboratory assistant, arterial line/ sheath insert, venous line / sheath insert, transesophageal echoduring cath, ABG, TAVR, access site angiography and vascular ultrasound. Dr. Pan Hurtado M.D. performed the left heart catheterization,aortic root aortogram, temporary pacemaker in blood and plasma laboratory assistant, arterial line /sheath insert, venous line / sheath insert, transesophageal echo during cath,ABG and TAVR. Esau Mcgarry M.D. Electronically Signed by: Esau Rahman M.D. Report Finalized: 09/16/2020 18:29 Report Last Ammended: 10/08/2020 11:00 Esau Rahman MD CARDIAC CATH JESSICA BLOCK * (ABNORMAL) Point of Care Blood Gas Historical (09/15/2020 2:40 PM EST) POC pH 7.44 7.35 - 7.45 [facility] POC PCO2 26(L) 35 - 45 mmHg [facility] POC PO2 75(L) 85 - 104 mmHg [facility] POC Base Excess -7.0(L) -3.0 - 3.0 mmol/L [facility] POC HCO3 17.5(L) 20.0 - 26.0 mmol/L [facility] POC Sodium 140 135 - 145 mmol/L [facility] POC Potassium 3.8 3.5 - 5.0 mmol/L [facility] POC Hematocrit 29.0(L) 34.0 - 45.0 % [facility] POC Calc Hgb 9.9(L) 11.2 - 15.7 gm/dL [facility] Comment:The calculation of h emoglobin from hematocrit assumes a normal MCHC. POC Bgas Loc CC LAB [facility] Blood specimen (specimen) 09/15/2020 2:40 PM EST 09/16/2020 9:00 AM EST Pan Hurtado MD CHEMISTRY ORDERABL ES Performing Organization Address City/[facility]/[place] [address] * Prepare RBC (09/15/2020 2:35 PM EST) Dispensed? Yes [facility] Blood specimen (specimen) 09/15/2020 2:35 PM EST 09/15/2020 2:33 PM EST Abiodun Chun MD BLOOD BANK PRODUCT O RDERABLES Performing Organization Address City/[facility] [place] [address] * (ABNORMAL) Point of Care Blood Gas Historical (09/15/2020 1:51 PM EST) POC pH 7.40 7.35 - 7.45 [facility] POC PCO2 37 35 - 45 mmHg [facility] POC PO2 71(L) 85 - 104 mmHg [facility] POC Base Excess -2.0 -3.0 - 3.0 mmol/L [facility] POC HCO3 22.7 20.0 - 26.0 mmol/L [facility] POC Sodium 142 135 - 145 mmol/L [facility] POC Potassium 3.7 3.5 - 5.0 mmol/L [facility] POC Hematocrit 25.0(L) 34.0 - 45.0 % [facility] POC Calc Hgb 8.5(L) 11.2 - 15.7 gm/dL [facility] Comment:The calculation of h emoglobin from hematocrit assumes a normal MCHC. POC Bgas Loc CC LAB [facility] Blood specimen (specimen) 09/15/2020 1:51 PM EST 09/16/2020 9:00 AM EST Pan Hurtado MD CHEMISTRY ORDERABL ES Performing Organization Address [facility] Co de Phone Number [facility] [place] [address] * POCT Glucose (09/15/2020 1:50 PM EST) POC Glucose 151 65 - 199 mg/dL [facility] Comment: Supplemental ranges: <140 mg/dL before meals <180 mg/dL all other times of the day Blood specimen (specimen) 09/15/2020 1:50 PM EST 09/15/2020 1:50 PM EST Abiodun Chun MD POINT OF CARE TEST O RDERABLES Performing Organization Address [facility] Phone Number [facility] [address] * POCT Glucose (09/15/2020 11:40 AM EST) POC Glucose 176 65 - 199 mg/dL [facility] Comment: Supplemental ranges: <140 mg/dL before meals <180 mg/dL all other times of the day Blood specimen (specimen) 09/15/2020 11:40 AM EST 09/15/2020 11:40 AM EST Abiodun Chun MD POINT OF CARE TEST O RDERABLES Performing Organization Address [facility] Co de Phone Number [facility] [place] [address] * ABORH Recheck Status (09/15/2020 10:09 AM EST) ABORH Type Recheck Completed [facility] Blood specimen (specimen) 09/15/2020 10:09 AM EST 09/15/2020 10:14 AM EST Narrative Resulting Agency Comment Spec In Lab Esau Rahman MD BLOOD BANK LAB OR DERABLES Performing Organization Address [facility]/ZIP Co de Phone Number [facility] [place] [address] * Antibody screen (09/15/2020 10:09 AM EST) Ab Screen Interp Negative [facility] Expires at [id number] on: 09/18/2020 [facility] Blood specimen (specimen) 09/15/2020 10:09 AM EST 09/15/2020 10:14 AM EST Narrative Resulting Agency Comment Spec In Lab Esau Rahman MD BLOOD BANK LAB OR DERABLES [facility] [place] [place] [address] * ABO/Rh Typing (09/15/2020 10:09 AM EST) ABORH Type O Pos [facility] Blood specimen (specimen) 09/15/2020 10:09 AM EST 09/15/2020 10:14 AM EST Narrative Resulting Agency Comment Spec In Lab Esau Rahman MD BLOOD BANK LAB OR DERABLES Performing Organization Address [facility]/ZIP Co de Phone Number [facility] [place] [address] * POCT Glucose (09/15/2020 8:01 AM EST) [facility] POC Glucose 137 65 - 199 mg/dL [facility] Comment: Supplemental ranges: <140 mg/dL before meals <180 mg/dL all other times of the day Blood specimen (specimen) 09/15/2020 8:01 AM EST 09/15/2020 8:01 AM EST Abiodun Chun MD POINT OF CARE TEST O RDERABLES Performing Organization Address City/[facility]/ZIP Co de Phone Number [facility] [place] [address] * (ABNORMAL) Differential, Automated (09/15/2020 4:45 AM EST) Neutrophils % 56.0 % [facility] Neutr Abs (ANC) 3.84 1.70 - 6.10 x10(3)/[facility] Lymphocytes % 27.9 % [facility] Lymphocytes Abs 1.9 0.9 - 3.2 x10(3)/[facility] Monocytes % 8.4 % [facility] Monocyte Abs 0.6 0.3 - 0.9 x10(3)/[facility] Eosinophils % 5.5 % [facility] Eosinophils Abs 0.4 0.0 - 0.4 x10(3)/[facility] Basophils % 1.0 % [facility] Basophils Abs 0.1 0.0 - 0.1 x10(3)/[facility] Immature Gran % 1.20 % [facility] Comment: Immature granulocytes(IG's)percentage and absolute count will include metamyelocytes, myelocytes, and promyelocytes. Blood smears from CBCs yielding IG's will be scanned manually for concordance. If this scan disagrees with the automated IG or if promyelocytes are noted, a manual differential will be performed. Nanci Gran Abs 0.08(H) 0.00 - 0.04 x10(3)/[facility] Blood specimen (specimen) 09/15/2020 4:45 AM EST 09/15/2020 5:15 AM EST Narrative Resulting Agency Comment Spec In Lab Carol Reyna MD HEMATOLOGY ORDERABLES [facility] [place] [address] * (ABNORMAL) Hemogram (09/15/2020 4:45 AM EST) WBC 6.9 4.0 - 9.5 x10(3)/[facility] RBC 3.93(L) 4.00 - 5.21 x10(6)/[facility] Hemoglobin 8.5(L) 11.7 - 15.5 gm/dL [facility] Hematocrit 28.2(L) 35.7 - 45.8 % [facility] MCV 71.8(L) 82.6 - 94.4 fL [facility] MCH 21.6(L) 27.1 - 32.0 pg [facility] MCHC 30.1(L) 31.7 - 35.0 gm/dL [facility] Platelets 316 145 - 357 x10(3)/[facility] RDWSD 56.9(H) 37.0 - 46.0 [facility] RDWCV 23.0(H) 11.5 - 14.1 % [facility] MPV 10.2 7.6 - 12.9 [facility] nRBC % Auto 0.0 % [facility] nRBC Abs Auto 0.000 0.000 - 0.000 x10(3)/[facility] Blood specimen (specimen) 09/15/2020 4:45 AM EST 09/15/2020 5:15 AM EST Narrative Resulting Agency Comment Spec In Lab Carol Reyna MD HEMATOLOGY ORDERABLES Performing Organization Address [facility]/[place] [address] * Magnesium (09/15/2020 4:45 AM EST) Magnesium 0.92 0.69 - 1.07 mmol/L [facility] Blood specimen (specimen) 09/15/2020 4:45 AM EST 09/15/2020 5:15 AM EST Narrative Resulting Agency Comment Spec In Lab Amarilys Cerna MD CHEMISTRY ORDERABLES Performing Organization Address City/[facility]/ZIP Co de Phone Number [facility] [place] [address] * (ABNORMAL) BMP w/fasting Glucose (09/15/2020 4:45 AM EST) Glucose Fasting 164(H) 65 - 99 mg/dL [facility] Comment: ?Fasting* Glucose Interpretive Criteria [...] of Diabetes Mellitus, Position Statement from the [employer]. ??Diabetes Care, Volume 33, Supplement 1, Aug 2009 BUN 16 8 - 18 mg/dL [facility] Creatinine 0.99 0.70 - 1.20 mg/dL [facility] Sodium 139 135 - 145 mmol/L [facility] Potassium 4.2 3.5 - 5.0 mmol/L [facility] Comment: Please note: ??Patients with WBC >100,000 may have falsely elevated Potassium levels. ??For accurate Potassium quantification in these patients send serum separator tube (gold top) for subsequent determinations. ??Contact the Clinical Chemistry Laboratory if there are any questions. Chloride 106 98 - 107 mmol/L [facility] CO2 24 22 - 31 mmol/L [facility] Anion Gap 9 5 - 15 mmol/L [facility] Calcium 9.0 8.5 - 10.5 mg/dL [facility] Estimated GFR 54(L) >=60 mL/min/1. 73 m?? [facility] [...] Cerna MD CHEMISTRY ORDERABLES Performing Organization Address [facility] Co de Phone Number [facility] [place] [address] * APTT (09/15/2020 4:45 AM EST) PTT 26 25 - 37 sec [facility] Comment: The PTT is NOT appropriate for heparin monitoring. Use the Anti-Xa level for heparin monitoring (HEP UFH) or LMWH monitoring (HEP LMW). A PTT less than 37 seconds generally indicates adequate hemostasis. Blood specimen (specimen) 09/15/2020 4:45 AM EST 09/15/2020 5:15 AM EST Narrative Resulting Agency Comment Spec In Lab Amarilys Cerna MD HEMATOLOGY ORDERABLE S Performing Organization Address [facility] Co de Phone Number [facility] [place] [address] * Prothrombin Time (09/15/2020 4:45 AM EST) PT 11.2 9.4 - 12.5 sec [facility] INR 1.0 [facility] Comment: An INR <2.0 indicates [...] Lab Amarilys Cerna MD HEMATOLOGY ORDERABLE S [facility] [place] [address] * POCT Glucose (09/15/2020 4:27 AM EST) POC Glucose 180 65 - 199 mg/dL [facility] Comment: Supplemental ranges: <140 mg/dL before meals <180 mg/dL all other times of the day Blood specimen (specimen) 09/15/2020 4:27 AM EST 09/15/2020 4:27 AM EST Abiodun Chun MD POINT OF CARE TEST O POOLERATOAN Performing Organization Address [facility]/ZIP Co de Phone Number [facility] [place] [address] * POCT Glucose (09/15/2020 12:07 AM EST) POC Glucose 189 65 - 199 mg/dL [facility] Comment: Supplemental ranges: <140 mg/dL before meals <180 mg/dL all other times of the day Blood specimen (specimen) 09/15/2020 12:07 AM EST 09/15/2020 12:07 AM EST Abiodun Chun MD POINT OF CARE TEST O ISAIAH Performing Organization Address City/[facility]/ZIP Co de Phone Number [facility] [place] [address] * (ABNORMAL) POCT Glucose (09/14/2020 8:27 PM EST) POC Glucose 218(H) 65 - 199 mg/dL [facility] Comment: Supplemental ranges: <140 mg/dL before meals <180 mg/dL all other times of the day Blood specimen (specimen) 09/14/2020 8:27 PM EST 09/14/2020 8:27 PM EST Abiodun Chun MD POINT OF CARE TEST O ISAIAH Performing Organization Address [facility] Co de Phone Number [facility] [place] [address] * POCT Glucose (09/14/2020 5:13 PM EST) POC Glucose 177 65 - 199 mg/dL [facility] Comment: Supplemental ranges: <140 mg/dL before meals <180 mg/dL all other times of the day Blood specimen (specimen) 09/14/2020 5:13 PM EST 09/14/2020 5:13 PM EST Abiodun Chun MD POINT OF CARE TEST O ISAIAH Performing Organization Address [facility] Co de Phone Number [facility] [place] [address] * POCT Glucose (09/14/2020 12:31 PM EST) POC Glucose 168 65 - 199 mg/dL [facility] Comment: Supplemental ranges: <140 mg/dL before meals <180 mg/dL all other times of the day Blood specimen (specimen) 09/14/2020 12:31 PM EST 09/14/2020 12:31 PM EST Abiodun Chun MD POINT OF CARE TEST O ISAIAH Performing Organization Address [facility] Co de Phone Number [facility] [place] [address] * CT Angiogram Abdomen & Pelvis w [...] interpretation and agree with the findings, Jos Collins DO at 09/14/2020 1:47 PM Thank you for letting us participate in the care of this patient. For questions regarding this report, please contact the number below. ? Electronically signed by: Jos Collins DO, [facility] ([phone]), at 09/14/2020 1:47 PM Narrative 09/14/2020 1:47 [...] below. Electronically signed by: Jos Collins DO, [facility]([phone]), at 09/14/2020 1:47 PM Abiodun Chun MD [facility] [place] ORDER[place]LES * CT Cardiac for Morphology & Function (09/14/2020 11:43 AM EST) Anatomical Region Laterality Modality Chest, Cardiac Computed Tomogra phy Impressions 09/14/2020 2:29 PM EST Pre-TAVR measurements as above. Thank you for letting us participate in the care of this patient. For questions regarding this report, please contact the number below. ? Electronically signed by: Raymundo Trivedi MD, [facility] ([phone]), at 09/14/2020 2:29 PM Narrative 09/14/2020 2:29 [...] three sinuses of Valsalva, set equidistant: ?? MACEDONIAN 9 cranial 5 Akxafqg-[id number] height: Right: 12.7 mm Left: 14.1 mm [...] the three sinuses of Valsalva, set equidistant: MACEDONIAN 9 cranial 5 Sogonnp-zh-jbospsbx height: Right: 12.7 mm Left: 14.1 mm [...] below. Electronically signed by: Raymundo Trivedi MD, [facility]([phone]), at 09/14/2020 2:29 PM Amarilys Cerna MD IMG CT ORDERABLES * POCT Glucose (09/14/2020 7:38 AM EST) [facility] POC Glucose 169 65 - 199 mg/dL [facility] Comment: Supplemental ranges: <140 mg/dL before meals <180 mg/dL all other times of the day Blood specimen (specimen) 09/14/2020 7:38 AM EST 09/14/2020 7:38 AM EST Abiodun Chun MD POINT OF CARE TEST O RDERABLES [facility] [place] [place] [address] * Scan, Peripheral Blood (09/14/2020 3:51 AM EST) [facility] Plat Estimate Normal [facility] RBC Morphology Abnormal [facility] Microcytes 1-5 /HPF [facility] Ovalocytes 1-5 /HPF [facility] Blood specimen (specimen) 09/14/2020 3:51 AM EST 09/14/2020 4:09 AM EST Narrative Resulting Agency Comment Spec In Lab Carol Reyna MD HEMATOLOGY ORDERABLES [facility] [place] [address] * (ABNORMAL) Differential, Automated (09/14/2020 3:51 AM EST) Pathologist [facility] [place] Neutrophils % 54.5 % [facility] Neutr Abs (ANC) 3.56 1.70 - 6.10 x10(3)/ L [facility] Lymphocytes % 27.2 % [facility] Lymphocytes Abs 1.8 0.9 - 3.2 x10(3)/[facility] Monocytes % 9.0 % [facility] Monocyte Abs 0.6 0.3 - 0.9 x10(3)/[facility] Eosinophils % 7.6 % [facility] Eosinophils Abs 0.5(H) 0.0 - 0.4 x10(3)/[facility] Basophils % 1.1 % [facility] Basophils Abs 0.1 0.0 - 0.1 x10(3)/[facility] Immature Gran % 0.60 % [facility] Comment: Immature granulocytes(IG's)percentage and absolute count will include metamyelocytes, myelocytes, and promyelocytes. Blood smears from CBCs yielding IG's will be scanned manually for concordance. If this scan disagrees with the automated IG or if promyelocytes are noted, a manual differential will be performed. Nanci Gran Abs 0.04 0.00 - 0.04 x10(3)/ L [facility] Blood specimen (specimen) 09/14/2020 3:51 AM EST 09/14/2020 4:09 AM EST Narrative Resulting Agency Comment Spec In Lab Carol Reyna MD HEMATOLOGY ORDERABLES [facility] [place] [place] [address] * (ABNORMAL) Hemogram (09/14/2020 3:51 AM EST) Pathologist [facility] [place] WBC 6.5 4.0 - 9.5 x10(3)/[facility] RBC 3.99(L) 4.00 - 5.21 x10(6)/[facility] Hemoglobin 8.4(L) 11.7 - 15.5 gm/dL [facility] Hematocrit 28.7(L) 35.7 - 45.8 % [facility] MCV 71.9(L) 82.6 - 94.4 fL [facility] MCH 21.1(L) 27.1 - 32.0 pg [facility] MCHC 29.3(L) 31.7 - 35.0 gm/dL [facility] Platelets 325 145 - 357 x10(3)/[facility] RDWSD 55.1(H) 37.0 - 46.0 fL [facility] RDWCV 22.2(H) 11.5 - 14.1 % [facility] MPV 10.0 7.6 - 12.9 [facility] nRBC % Auto 0.3 % [facility] nRBC Abs Auto 0.020(H) 0.000 - 0.000 x10(3)/[facility] Blood specimen (specimen) 09/14/2020 3:51 AM EST 09/14/2020 4:09 AM EST Narrative Resulting Agency Comment Spec In Lab Carol Reyna MD HEMATOLOGY ORDERABLES [facility] [place] [address] * Magnesium (09/14/2020 3:51 AM EST) Pathologist [facility] [place] Magnesium 0.96 0.69 - 1.07 mmol/L [facility] Blood specimen (specimen) 09/14/2020 3:51 AM EST 09/14/2020 4:09 AM EST Narrative Resulting Agency Comment Spec In Lab Amarilys Cerna MD CHEMISTRY ORDERABLES Performing Organization Address [facility] de Phone Number [facility] [address] * (ABNORMAL) Hepatic Function Panel (09/14/2020 3:51 AM EST) Total Protein 6.2 6.1 - 8.0 gm/dL [facility] Albumin 4.2 3.2 - 5.2 gm/dL [facility] AST 24 0 - 30 unit/L [facility] ALT 28 0 - 30 unit/L [facility] Alk Phos 111(H) 35 - 105 unit/L [facility] Total Bilirubin 1.0 0.2 - 1.3 mg/dL [facility] Bili, Direct 0.3 0.0 - 0.3 mg/dL [facility] Blood specimen (specimen) 09/14/2020 3:51 AM EST 09/14/2020 4:09 AM EST Narrative Resulting Agency Comment Spec In Lab Amarilys Cerna MD CHEMISTRY ORDERABLES Performing Organization Address [facility] Phone Number [facility] [place] [address] * (ABNORMAL) BMP w/fasting Glucose (09/14/2020 3:51 AM EST) Glucose Fasting 159(H) 65 - 99 mg/dL [facility] Comment: ?Fasting* Glucose Interpretive Criteria [...] of Diabetes Mellitus, Position Statement from the [place] [employer]. ??Diabetes Care, Volume 33, Supplement 1, Aug 2009 BUN 13 8 - 18 mg/dL [facility] Creatinine 1.11 0.70 - 1.20 mg/dL [facility] Sodium 140 135 - 145 mmol/L [facility] Potassium 4.4 3.5 - 5.0 mmol/L [facility] Comment: Please note: ??Patients with WBC >100,000 may have falsely elevated Potassium levels. ??For accurate Potassium quantification in these patients send serum separator tube (gold top) for subsequent determinations. ??Contact the Clinical Chemistry Laboratory if there are any questions. Chloride 107 98 - 107 mmol/L [facility] CO2 24 22 - 31 mmol/L [facility] Anion Gap 9 5 - 15 mmol/L [facility] Calcium 8.9 8.5 - 10.5 mg/dL [facility] Estimated GFR 47(L) >=60 mL/min/1. 73 m?? [facility] [...] Cerna MD CHEMISTRY ORDERABLES [facility] [place] [place] [address] * APTT (09/14/2020 3:51 AM EST) PTT 28 25 - 37 sec [facility] Comment: The PTT is NOT appropriate for heparin monitoring. Use the Anti-Xa level for heparin monitoring (HEP UFH) or LMWH monitoring (HEP LMW). A PTT less than 37 seconds generally indicates adequate hemostasis. Blood specimen (specimen) 09/14/2020 3:51 AM EST 09/14/2020 4:09 AM EST Narrative Resulting Agency Comment Spec In Lab Amarilys Cerna MD HEMATOLOGY ORDERABLE S Performing Organization Address [facility] Co de Phone Number [facility] [place] [address] * Prothrombin Time (09/14/2020 3:51 AM EST) PT 12.2 9.4 - 12.5 sec [facility] INR 1.1 [facility] Comment: An INR <2.0 indicates [...] MD HEMATOLOGY ORDERABLE S Performing Organization Address City/[facility]/ZIP Co de Phone Number [facility] [place] [address] * POCT Glucose (09/14/2020 3:18 AM EST) POC Glucose 155 65 - 199 mg/dL [facility] Comment: Supplemental ranges: <140 mg/dL before meals <180 mg/dL all other times of the day Blood specimen (specimen) 09/14/2020 3:18 AM EST 09/14/2020 3:18 AM EST Abiodun Chun MD POINT OF CARE TEST O RDERABLES Performing Organization Address City/[facility]/ZIP Co de Phone Number [facility] [place] [address] * POCT Glucose (09/13/2020 11:31 PM EST) POC Glucose 198 65 - 199 mg/dL [facility] Comment: Supplemental ranges: <140 mg/dL before meals <180 mg/dL all other times of the day Blood specimen (specimen) 09/13/2020 11:31 PM EST 09/13/2020 11:31 PM EST Abiodun Chun MD POINT OF CARE TEST O RDERABLES Performing Organization Address City/[facility]/ZIP Co de Phone Number [facility] [place] [place] [address] * ABORH Recheck Status (09/13/2020 10:50 PM EST) ABORH Type Recheck Completed [facility] Blood specimen (specimen) 09/13/2020 10:50 PM EST 09/13/2020 10:58 PM EST Narrative Resulting Agency Comment Spec In Lab Carol Reyna MD BLOOD BANK LAB ORDERABLES Performing Organization Address City/[facility]/ZIP Co de Phone Number [facility] [place] [address] * Antibody screen (09/13/2020 10:50 PM EST) Ab Screen Interp Negative [facility] Expires at [id number] on: 09/16/2020 [facility] Blood specimen (specimen) 09/13/2020 10:50 PM EST 09/13/2020 10:58 PM EST Narrative Resulting Agency Comment Spec In Lab Carol Reyna MD BLOOD BANK LAB ORDERABLES Performing Organization Address [facility]/ZIP Co de Phone Number [facility] [place] [address] * ABO/Rh Typing (09/13/2020 10:50 PM EST) ABORH Type O Pos [facility] Blood specimen (specimen) 09/13/2020 10:50 PM EST 09/13/2020 10:58 PM EST Narrative Resulting Agency Comment Spec In Lab Carol Reyna MD BLOOD BANK LAB ORDERABLES Performing Organization Address [facility] Co de Phone Number [facility] [place] [address] * (ABNORMAL) Hemoglobin and Hematocrit, blood (09/13/2020 10:50 PM EST) Pathologist [facility] [place] Hemoglobin 8.8(L) 11.7 - 15.5 gm/dL [facility] Hematocrit 30.0(L) 35.7 - 45.8 % [facility] Blood specimen (specimen) 09/13/2020 10:50 PM EST 09/13/2020 11:05 PM EST Narrative Resulting Agency Comment Spec In Lab Abiodun Chun MD HEMATOLOGY ORDERABLE S Performing Organization Address [facility] Co de Phone Number [facility] [place] [address] * (ABNORMAL) POCT Glucose (09/13/2020 8:00 PM EST) Pathologist [facility] [place] POC Glucose 203(H) 65 - 199 mg/dL [facility] Comment: Supplemental ranges: <140 mg/dL before meals <180 mg/dL all other times of the day Blood specimen (specimen) 09/13/2020 8:00 PM EST 09/13/2020 8:00 PM EST Abiodun Chun MD POINT OF CARE TEST O RDERABLES Performing Organization Address [facility] de Phone Number [facility] [place] [place] [address] * POCT Glucose (09/13/2020 4:43 PM EST) POC Glucose 192 65 - 199 mg/dL [facility] Comment: Supplemental ranges: <140 mg/dL before meals <180 mg/dL all other times of the day Blood specimen (specimen) 09/13/2020 4:43 PM EST 09/13/2020 4:43 PM EST Abiodun Chun MD POINT OF CARE TEST Gage COLON Performing Organization Address [facility] de Phone Number [facility] [place] [address] * (ABNORMAL) POCT Glucose (09/13/2020 11:37 AM EST) POC Glucose 212(H) 65 - 199 mg/dL [facility] Comment: Supplemental ranges: <140 mg/dL before meals <180 mg/dL all other times of the day Blood specimen (specimen) 09/13/2020 11:37 AM EST 09/13/2020 11:37 AM EST Abiodun Chun MD POINT OF CARE TEST Gage COLON Performing Organization Address [facility] de Phone Number [facility] [place] [address] * Potassium (09/13/2020 11:25 AM EST) Potassium 4.2 3.5 - 5.0 mmol/L [facility] [...] MD CHEMISTRY ORDERABL ES Performing Organization Address [facility] Phone Number [facility] [place] [address] * (ABNORMAL) Hemoglobin and Hematocrit, blood (09/13/2020 11:25 AM EST) Hemoglobin 9.0(L) 11.7 - 15.5 gm/dL [facility] Hematocrit 30.2(L) 35.7 - 45.8 % [facility] Blood specimen (specimen) 09/13/2020 11:25 AM EST 09/13/2020 11:39 AM EST Narrative Resulting Agency Comment Spec In Lab Abiodun Chun MD HEMATOLOGY ORDERABLE S Performing Organization Address [facility] Phone Number [facility] [place] [place] [address] * POCT Glucose (09/13/2020 7:16 AM EST) [facility] POC Glucose 141 65 - 199 mg/dL [facility] Comment: Supplemental ranges: <140 mg/dL before meals <180 mg/dL all other times of the day Blood specimen (specimen) 09/13/2020 7:16 AM EST 09/13/2020 7:16 AM EST Abiodun Chun MD POINT OF CARE TEST O RDERABLES Performing Organization Address [facility] de Phone Number [facility] [place] [address] * Smear Review Report (09/13/2020 5:39 AM EST) Pathologist [facility] [place] Smear Review Report [id number] ? Location: [facility]; [id number]; B The signing pathologist has (i) examined the relevant preparation(s) for the specimen(s) and (ii) rendered or confirmed the diagnosis(es). . ? Smear Review DIAGNOSIS Peripheral blood, smear review: - Microcytic anemia compatible with iron deficiency (see Discussion). Electronically signed by: ??Tracy Alas MD Verified: ??09/13/2020 ?Hematopathologist Performed at: ??-[facility] Dept. of Pathology, [place], [place] DISCUSSION The RBC morphology taken together [...] and peripheral blood smear requested for evaluation. [facility] 09/13/2020 5:39 AM EST Abigail Todd MD PATHOLOGY/CYTOLOGY O RDERATOAN [facility] [place] [address] * Scan, Peripheral Blood (09/13/2020 5:39 AM EST) Pathologist [facility] [place] Plat Estimate Normal [facility] RBC Morphology Abnormal [facility] Microcytes 1-5 /HPF [facility] Hypochromia Slight [facility] Ovalocytes 6-10 /HPF [facility] Tear Drop Cells 1-5 /HPF [facility] Blood specimen (specimen) 09/13/2020 5:39 AM EST 09/13/2020 5:44 AM EST Narrative Resulting Agency Comment Spec In Lab Carol Reyna MD HEMATOLOGY ORDERABLES [facility] [place] [place] [address] * Differential, Automated (09/13/2020 5:39 AM EST) Pathologist [facility] [place] Neutrophils % 59.7 % [facility] Neutr Abs (ANC) 3.66 1.70 - 6.10 x10(3)/[facility] Lymphocytes % 23.6 % [facility] Lymphocytes Abs 1.4 0.9 - 3.2 x10(3)/[facility] Monocytes % 8.8 % [facility] Monocyte Abs 0.5 0.3 - 0.9 x10(3)/[facility] Eosinophils % 6.8 % [facility] Eosinophils Abs 0.4 0.0 - 0.4 x10(3)/[facility] Basophils % 0.8 % [facility] Basophils Abs 0.0 0.0 - 0.1 x10(3)/[facility] Immature Gran % 0.30 % [facility] Comment: Immature granulocytes(IG's)percentage and absolute count will include metamyelocytes, myelocytes, and promyelocytes. Blood smears from CBCs yielding IG's will be scanned manually for concordance. If this scan disagrees with the automated IG or if promyelocytes are noted, a manual differential will be performed. Nanci Gran Abs 0.02 0.00 - 0.04 x10(3)/[facility] Blood specimen (specimen) 09/13/2020 5:39 AM EST 09/13/2020 5:44 AM EST Narrative Resulting Agency Comment Spec In Lab Carol Reyna MD HEMATOLOGY ORDERABLES [facility] [place] [address] * (ABNORMAL) Hemogram (09/13/2020 5:39 AM EST) WBC 6.1 4.0 - 9.5 x10(3)/[facility] RBC 4.01 4.00 - 5.21 x10(6)/[facility] Hemoglobin 8.5(L) 11.7 - 15.5 gm/dL [facility] Hematocrit 28.2(L) 35.7 - 45.8 % [facility] MCV 70.3(L) 82.6 - 94.4 [facility]ATORY MCH 21.2(L) 27.1 - 32.0 pg [facility] MCHC 30.1(L) 31.7 - 35.0 gm/dL [facility] Platelets 315 145 - 357 x10(3)/[facility] LAB[facility] RDWSD 51.5(H) 37.0 - 46.0 [facility] LAB[facility]ATORY RDWCV 20.8(H) 11.5 - 14.1 % [facility] MPV 9.8 7.6 - 12.9 [facility] LAB[facility]ATORY nRBC % Auto 0.3 % [facility] nRBC Abs Auto 0.020(H) 0.000 - 0.000 x10(3)/[facility] Blood specimen (specimen) 09/13/2020 5:39 AM EST 09/13/2020 5:44 AM EST Narrative Resulting Agency Comment Spec In Lab Carol Reyna MD HEMATOLOGY ORDERABLES Performing Organization Address [facility] Co de Phone Number [facility] [place] [address] * Magnesium (09/13/2020 5:39 AM EST) Magnesium 1.04 0.69 - 1.07 mmol/L [facility] Blood specimen (specimen) 09/13/2020 5:39 AM EST 09/13/2020 5:44 AM EST Narrative Resulting Agency Comment Spec In Lab Amarilys Cerna MD CHEMISTRY ORDERABLES Performing Organization Address [facility] de Phone Number [facility] [address] * (ABNORMAL) Hepatic Function Panel (09/13/2020 5:39 AM EST) Total Protein 6.3 6.1 - 8.0 gm/dL [facility] Albumin 4.0 3.2 - 5.2 gm/dL [facility] AST 41(H) 0 - 30 unit/L [facility] Comment:result rechecked-KS ALT 30 0 - 30 unit/L [facility] Alk Phos 110(H) 35 - 105 unit/L [facility] Total Bilirubin 1.9(H) 0.2 - 1.3 mg/dL [facility] Bili, Direct 0.4(H) 0.0 - 0.3 mg/dL [facility] Blood specimen (specimen) 09/13/2020 5:39 AM EST 09/13/2020 5:44 AM EST Narrative Resulting Agency Comment Spec In Lab Amarilys Cerna MD CHEMISTRY ORDERABLES [facility] [place] [place] [address] * (ABNORMAL) BMP w/fasting Glucose (09/13/2020 5:39 AM EST) Glucose Fasting 136(H) 65 - 99 mg/dL [facility] Comment: ?Fasting* Glucose Interpretive Criteria [...] of Diabetes Mellitus, Position Statement from the [employer]. ??Diabetes Care, Volume 33, Supplement 1, Aug 2009 BUN 12 8 - 18 mg/dL [facility] Creatinine 0.98 0.70 - 1.20 mg/dL [facility] Sodium 141 135 - 145 mmol/L [facility] Potassium 4.3 3.5 - 5.0 mmol/L [facility] Comment: Please note: ??Patients with WBC >100,000 may have falsely elevated Potassium levels. ??For accurate Potassium quantification in these patients send serum separator tube (gold top) for subsequent determinations. ??Contact the Clinical Chemistry Laboratory if there are any questions. Chloride 108(H) 98 - 107 mmol/L [facility] CO2 23 22 - 31 mmol/L [facility] Anion Gap 10 5 - 15 mmol/L [facility] Calcium 8.8 8.5 - 10.5 mg/dL [facility] Estimated GFR 54(L) >=60 mL/min/1. 73 m?? [facility] [...] Cerna MD CHEMISTRY ORDERABLES Performing Organization Address [facility] Co de Phone Number [facility] [place] [address] * APTT (09/13/2020 5:39 AM EST) PTT 29 25 - 37 sec [facility] Comment: The PTT is NOT appropriate for heparin monitoring. Use the Anti-Xa level for heparin monitoring (HEP UFH) or LMWH monitoring (HEP LMW). A PTT less than 37 seconds generally indicates adequate hemostasis. Blood specimen (specimen) 09/13/2020 5:39 AM EST 09/13/2020 5:44 AM EST Narrative Resulting Agency Comment Spec In Lab Amarilys Cerna MD HEMATOLOGY ORDERABLE S Performing Organization Address City/[facility] Co de Phone Number [facility] [address] * (ABNORMAL) Prothrombin Time (09/13/2020 5:39 AM EST) PT 12.8(H) 9.4 - 12.5 sec [facility] INR 1.1 [facility] Comment: An INR <2.0 indicates [...] MD HEMATOLOGY ORDERABLE S Performing Organization Address [facility] Co de Phone Number [facility] [place] [address] * Peripheral Smear Review (09/13/2020 5:39 AM EST) Periph Smear Rev See Comment [facility] Comment: When completed by the Pathologist, report [id number] will display under Hematopathology Reports. Blood specimen (specimen) 09/13/2020 5:39 AM EST 09/13/2020 5:44 AM EST Narrative Resulting Agency Comment Spec In Lab Abiodun Chun MD HEMATOLOGY ORDERABLE S Performing Organization Address [facility] Co de Phone Number [facility] [place] [address] * POCT Glucose (09/13/2020 4:02 AM EST) POC Glucose 113 65 - 199 mg/dL [facility] Comment: Supplemental ranges: <140 mg/dL before meals <180 mg/dL all other times of the day Blood specimen (specimen) 09/13/2020 4:02 AM EST 09/13/2020 4:02 AM EST Abiodun Chun MD POINT OF CARE TEST O RDERABLES Performing Organization Address [facility] Co de Phone Number [facility] [place] [address] * POCT Glucose (09/12/2020 11:46 PM EST) POC Glucose 118 65 - 199 mg/dL [facility] Comment: Supplemental ranges: <140 mg/dL before meals <180 mg/dL all other times of the day Blood specimen (specimen) 09/12/2020 11:46 PM EST 09/12/2020 11:46 PM EST Abiodun Chun MD POINT OF CARE TEST O RDERABLES Performing Organization Address City/[facility]/ZIP Co de Phone Number [facility] [place] [address] * (ABNORMAL) Hemoglobin and Hematocrit, blood (09/12/2020 10:17 PM EST) Hemoglobin 8.8(L) 11.7 - 15.5 gm/dL [facility] Hematocrit 29.2(L) 35.7 - 45.8 % [facility] Blood specimen (specimen) 09/12/2020 10:17 PM EST 09/12/2020 10:27 PM EST Narrative Resulting Agency Comment Spec In Lab Abiodun Chun MD HEMATOLOGY ORDERABLE S Performing Organization Address [facility] Co de Phone Number [facility] [place] [address] * Potassium (09/12/2020 10:17 PM EST) Potassium 4.2 3.5 - 5.0 mmol/L [facility] [...] Chun MD CHEMISTRY ORDERABLES Performing Organization Address [facility]/ZIP Co de Phone Number [facility] [place] [place] [address] * POCT Glucose (09/12/2020 7:53 PM EST) POC Glucose 159 65 - 199 mg/dL [facility] Comment: Supplemental ranges: <140 mg/dL before meals <180 mg/dL all other times of the day Blood specimen (specimen) 09/12/2020 7:53 PM EST 09/12/2020 7:53 PM EST Abiodun Chun MD POINT OF CARE TEST O ISAIAH [facility] [place] [place] [address] * (ABNORMAL) Hemoglobin and Hematocrit, blood (09/12/2020 7:12 PM EST) Hemoglobin 8.7(L) 11.7 - 15.5 gm/dL [facility] Hematocrit 28.3(L) 35.7 - 45.8 % [facility] Blood specimen (specimen) 09/12/2020 7:12 PM EST 09/12/2020 8:17 PM EST Narrative Resulting Agency Comment Spec In Lab Amarilys Cerna MD HEMATOLOGY ORDERABLE S Performing Organization Address [facility]/ZIP Co de Phone Number [facility] [place] [address] * POCT Glucose (09/12/2020 3:55 PM EST) POC Glucose 131 65 - 199 mg/dL [facility] Comment: Supplemental ranges: <140 mg/dL before meals <180 mg/dL all other times of the day Blood specimen (specimen) 09/12/2020 3:55 PM EST 09/12/2020 3:55 PM EST Abiodun Chun MD POINT OF CARE TEST O ISAIAH [facility] [place] [place] [address] * Specimen to Pathology (09/12/2020 2:45 PM EST) AP Specimen 09/12/2020 2:45 PM EST 09/12/2020 2:45 PM EST Narrative [facility] - 09/12/2020 2:45 PM EST Specimen requisition ordered. ??Separate Pathology report to follow Abiodun Chun MD PATHOLOGY/CYTOLOGY Gage COLON [facility] [place] [address] * Surgical Pathology Report (09/12/2020 2:04 PM EST) Surgical Pathology Report [id number] ? Location: [facility]; [facility]; The signing pathologist has (i) examined the relevant preparation(s) for the specimen(s) and (ii) rendered or confirmed the diagnosis(es). . ?Surgical Pathology DIAGNOSIS Stomach, ??biopsy: Gastric antral and fundic gland mucosa with nonspecific reactive gastropathy. No H. pylori-like microorganism is seen. Electronically signed by: ??Chhaya Sandra MD Verified: ??09/20/2020 ?Pathologist Performed at: ??-[facility] Dept. of Pathology, [place], [place] SPECIMEN(S) SUBMITTED A - gastric biopsies. ??R/O H. Pylori, biopsy (Multiple) CLINICAL INFORMATION [place] SPECIMEN PROCESSING A - Labeled/Fixative: Gastric biopsies, rule out H. pylori, formalin. Quantity/Size: Multiple, ranging from 0.2-0.4 cm. Tissue Description: Soft, dowell tissues. Sections/Processi ng: Submitted en toto ??in 2 cassettes labeled A1-A2. ??sns [facility] 09/12/2020 2:04 PM EST Mane A Avila MD PATHOLOGY/CYTOLOGY O RDERABLES Performing Organization Address City/[facility]/ZIP Co de Phone Number [facility] [address] * Potassium (09/12/2020 1:11 PM EST) Pathologist [facility] [place] Potassium 3.9 3.5 - 5.0 mmol/L [facility] [...] MD CHEMISTRY ORDERABL ES Performing Organization Address [facility] Co de Phone Number [facility] [address] * (ABNORMAL) Hemoglobin and Hematocrit, blood (09/12/2020 1:11 PM EST) [facility] Hemoglobin 8.4(L) 11.7 - 15.5 gm/dL [facility] Hematocrit 27.9(L) 35.7 - 45.8 % [facility] Blood specimen (specimen) 09/12/2020 1:11 PM EST 09/12/2020 1:17 PM EST Narrative Resulting Agency Comment Spec In Lab Amarilys Cerna MD HEMATOLOGY ORDERABLE S Performing Organization Address City/[facility]/ZIP Co de Phone Number [facility] [place] [address] * UPPER GI ENDOSCOPY (09/12/2020 12:57 PM EST) Pathologist [facility] [place] UPPER GI ENDOSCOPY [facility] Endoscopy Procedure Date: 09/12/2020 12:57 PM ? Patient Name: Shannan Chaudhary ? Date of : 1940 ? Age: 80 ? Order #: [id number] ? Instrument Name: [id number] ? Procedure: ? Upper GI endoscopy Indications: ? Iron deficiency anemia Providers: ? Mane Avila MD, Asha Martins ? Isabel Powell Michael D. ? Mary Referring MD: ? Medicines: ? Propofol per Anesthesia Complications: [...] * COLONOSCOPY (09/12/2020 12:56 PM EST) COLONOSCOPY [facility] Endoscopy Procedure Date: 09/12/2020 12:56 PM ? Patient Name: Shannan Chaudhary ? Date of : 1940 ? Age: 80 ? Order #: [id number] ? Instrument Name: [facility]-[id number] ? Procedure: ? Colonoscopy Indications: ? Iron [...] GENERAL SURGICAL ORD ERABLES Performing Organization Address City/[facility] Co de Phone Number [employer] * POCT Glucose (09/12/2020 11:55 AM EST) POC Glucose 125 65 - 199 mg/dL [facility] Comment: Supplemental ranges: <140 mg/dL before meals <180 mg/dL all other times of the day Blood specimen (specimen) 09/12/2020 11:55 AM EST 09/12/2020 11:55 AM EST Abiodun Chun MD POINT OF CARE TEST O RDERABLES Performing Organization Address City/[facility] Co de Phone Number [facility] [place] [address] * POCT Glucose (09/12/2020 8:06 AM EST) POC Glucose 142 65 - 199 mg/dL [facility] Comment: Supplemental ranges: <140 mg/dL before meals <180 mg/dL all other times of the day Blood specimen (specimen) 09/12/2020 8:06 AM EST 09/12/2020 8:06 AM EST Abiodun Chun MD POINT OF CARE TEST O RDERABLES Performing Organization Address [facility] de Phone Number [facility] [place] [address] * (ABNORMAL) Hemoglobin and Hematocrit, blood (09/12/2020 7:47 AM EST) Pathologist [facility] [place] Hemoglobin 8.0(L) 11.7 - 15.5 gm/dL [facility] Hematocrit 26.0(L) 35.7 - 45.8 % [facility] Blood specimen (specimen) 09/12/2020 7:47 AM EST 09/12/2020 7:52 AM EST Narrative Resulting Agency Comment Spec In Lab Amarilys Cerna MD HEMATOLOGY ORDERABLE S Performing Organization Address [facility] Phone Number [facility] [address] * POCT Glucose (09/12/2020 4:38 AM EST) [facility] POC Glucose 173 65 - 199 mg/dL [facility] Comment: Supplemental ranges: <140 mg/dL before meals <180 mg/dL all other times of the day Blood specimen (specimen) 09/12/2020 4:38 AM EST 09/12/2020 4:38 AM EST Abiodun Chun MD POINT OF CARE TEST O RDERABLES Performing Organization Address [facility] Co de Phone Number [facility] [address] * Differential, Automated (09/12/2020 1:43 AM EST) Pathologist [facility] [place] Neutrophils % 59.2 % [facility] Neutr Abs (ANC) 4.62 1.70 - 6.10 x10(3)/[facility] Lymphocytes % 25.0 % [facility] Lymphocytes Abs 2.0 0.9 - 3.2 x10(3)/[facility] Monocytes % 10.8 % [facility] Monocyte Abs 0.8 0.3 - 0.9 x10(3)/[facility] Eosinophils % 3.7 % [facility] Eosinophils Abs 0.3 0.0 - 0.4 x10(3)/[facility] Basophils % 1.0 % [facility] Basophils Abs 0.1 0.0 - 0.1 x10(3)/[facility] Immature Gran % 0.30 % [facility] Comment: Immature granulocytes(IG's)percentage and absolute count will include metamyelocytes, myelocytes, and promyelocytes. Blood smears from CBCs yielding IG's will be scanned manually for concordance. If this scan disagrees with the automated IG or if promyelocytes are noted, a manual differential will be performed. Nanci Gran Abs 0.02 0.00 - 0.04 x10(3)/[facility] Blood specimen (specimen) 09/12/2020 1:43 AM EST 09/12/2020 1:48 AM EST Narrative Resulting Agency Comment Spec In Lab Carol Reyna MD HEMATOLOGY ORDERABLES [facility] [place] [place] [address] * (ABNORMAL) Hemogram (09/12/2020 1:43 AM EST) WBC 7.8 4.0 - 9.5 x10(3)/[facility] RBC 4.35 4.00 - 5.21 x10(6)/[facility] Hemoglobin 9.3(L) 11.7 - 15.5 gm/dL [facility] Hematocrit 30.8(L) 35.7 - 45.8 % [facility] MCV 70.8(L) 82.6 - 94.4 fL [facility] [place] 21.4(L) 27.1 - 32.0 pg [facility] MCHC 30.2(L) 31.7 - 35.0 gm/dL [facility] Platelets 353 145 - 357 x10(3)/[facility] RDWSD 50.0(H) 37.0 - 46.0 fL [facility] RDWCV 19.9(H) 11.5 - 14.1 % [facility] MPV 10.3 7.6 - 12.9 fL [facility] nRBC % Auto 0.3 % [facility] nRBC Abs Auto 0.020(H) 0.000 - 0.000 x10(3)/[facility] Blood specimen (specimen) 09/12/2020 1:43 AM EST 09/12/2020 1:48 AM EST Narrative Resulting Agency Comment Spec In Lab Carol Reyna MD HEMATOLOGY ORDERABLES Performing Organization Address City/[facility]/ZIP Co de Phone Number [facility] [place] [address] * Magnesium (09/12/2020 1:43 AM EST) Pathologist [facility] [place] Magnesium 1.05 0.69 - 1.07 mmol/L [facility] Blood specimen (specimen) 09/12/2020 1:43 AM EST 09/12/2020 1:48 AM EST Narrative Resulting Agency Comment Spec In Lab Amarilys Cerna MD CHEMISTRY ORDERABLES Performing Organization Address City/[facility]/ZIP Co de Phone Number [facility] [place] [address] * (ABNORMAL) Hepatic Function Panel (09/12/2020 1:43 AM EST) Pathologist [facility] [place] Total Protein 7.1 6.1 - 8.0 gm/dL [facility] Albumin 4.5 3.2 - 5.2 gm/dL [facility] AST 23 0 - 30 unit/L [facility] ALT 21 0 - 30 unit/L [facility] Alk Phos 120(H) 35 - 105 unit/L [facility] Total Bilirubin 2.7(H) 0.2 - 1.3 mg/dL [facility] Bili, Direct 0.3 0.0 - 0.3 mg/dL [facility] Blood specimen (specimen) 09/12/2020 1:43 AM EST 09/12/2020 1:48 AM EST Narrative Resulting Agency Comment Spec In Lab Amarilys Cerna MD CHEMISTRY ORDERABLES Performing Organization Address City/State/[facility] Co de Phone Number [facility] [place] [address] * (ABNORMAL) BMP w/fasting Glucose (09/12/2020 1:43 AM EST) Glucose Fasting 136(H) 65 - 99 mg/dL [facility] Comment: ?Fasting* Glucose Interpretive Criteria [...] of Diabetes Mellitus, Position Statement from the [employer]. ??Diabetes Care, Volume 33, Supplement 1, Aug 2009 BUN 17 8 - 18 mg/dL [facility] Creatinine 1.15 0.70 - 1.20 mg/dL [facility] Sodium 140 135 - 145 mmol/L [facility] Comment:result rechecked-KS Potassium 4.2 3.5 - 5.0 mmol/L [facility] Comment: result rechecked-KS Please note: ??Patients with WBC >100,000 may have falsely elevated Potassium levels. ??For accurate Potassium quantification in these patients send serum separator tube (gold top) for subsequent determinations. ??Contact the Clinical Chemistry Laboratory if there are any questions. Chloride 102 98 - 107 mmol/L [facility] Comment:result rechecked-KS CO2 24 22 - 31 mmol/L [facility] Anion Gap 14 5 - 15 mmol/L [facility] Calcium 9.3 8.5 - 10.5 mg/dL [facility] Estimated GFR 45(L) >=60 mL/min/1. 73 m?? [facility] [...] Cerna MD CHEMISTRY ORDERABLES [facility] [place] [address] * APTT (09/12/2020 1:43 AM EST) PTT 25 25 - 37 sec [facility] Comment: The PTT is NOT appropriate for heparin monitoring. Use the Anti-Xa level for heparin monitoring (HEP UFH) or LMWH monitoring (HEP LMW). A PTT less than 37 seconds generally indicates adequate hemostasis. Blood specimen (specimen) 09/12/2020 1:43 AM EST 09/12/2020 1:48 AM EST Narrative Resulting Agency Comment Spec In Lab Amarilys Cerna MD HEMATOLOGY ORDERABLE S Performing Organization Address City/[facility]/ZIP Co de Phone Number [facility] [place] [address] * (ABNORMAL) Prothrombin Time (09/12/2020 1:43 AM EST) PT 12.9(H) 9.4 - 12.5 sec [facility] INR 1.1 [facility] Comment: An INR <2.0 indicates [...] MD HEMATOLOGY ORDERABLE S Performing Organization Address City/[facility]/ZIP Co de Phone Number [facility] [place] [address] * POCT Glucose (09/11/2020 11:48 PM EST) POC Glucose 121 65 - 199 mg/dL [facility] Comment: Supplemental ranges: <140 mg/dL before meals <180 mg/dL all other times of the day Blood specimen (specimen) 09/11/2020 11:48 PM EST 09/11/2020 11:48 PM EST Abiodun Chun MD POINT OF CARE TEST O RDERABLES [facility] [place] [address] * POCT Glucose (09/11/2020 8:19 PM EST) POC Glucose 179 65 - 199 mg/dL [facility] Comment: Supplemental ranges: <140 mg/dL before meals <180 mg/dL all other times of the day Blood specimen (specimen) 09/11/2020 8:19 PM EST 09/11/2020 8:19 PM EST Abiodun Chun MD POINT OF CARE TEST O RDERABLES [facility] [place] [address] * POCT Glucose (09/11/2020 7:40 PM EST) [facility] POC Glucose 181 65 - 199 mg/dL [facility] Comment: Supplemental ranges: <140 mg/dL before meals <180 mg/dL all other times of the day Blood specimen (specimen) 09/11/2020 7:40 PM EST 09/11/2020 7:40 PM EST Abiodun Chun MD POINT OF CARE TEST O RDWILFREDOBLES Performing Organization Address [facility]/ZIP Co de Phone Number [facility] [place] [address] * (ABNORMAL) Hemoglobin and Hematocrit, blood (09/11/2020 6:22 PM EST) [facility] Hemoglobin 8.2(L) 11.7 - 15.5 gm/dL [facility] Hematocrit 26.9(L) 35.7 - 45.8 % [facility] Blood specimen (specimen) 09/11/2020 6:22 PM EST 09/11/2020 6:55 PM EST Narrative Resulting Agency Comment Spec In Lab Amarilys Cerna MD HEMATOLOGY ORDERABLE S [facility] [place] [address] * (ABNORMAL) POCT Glucose (09/11/2020 5:17 PM EST) POC Glucose 285(H) 65 - 199 mg/dL [facility] Comment: Supplemental ranges: <140 mg/dL before meals <180 mg/dL all other times of the day Blood specimen (specimen) 09/11/2020 5:17 PM EST 09/11/2020 5:17 PM EST Abiodun Chun MD POINT OF CARE TEST O RDERATOAN Performing Organization Address [facility] Co de Phone Number [facility] [address] * POCT Glucose (09/11/2020 12:16 PM EST) POC Glucose 120 65 - 199 mg/dL [facility] Comment: Supplemental ranges: <140 mg/dL before meals <180 mg/dL all other times of the day Blood specimen (specimen) 09/11/2020 12:16 PM EST 09/11/2020 12:16 PM EST Abiodun Chun MD POINT OF CARE TEST O ISAIAH Performing Organization Address [facility] de Phone Number [facility] [address] * (ABNORMAL) Potassium (09/11/2020 11:47 AM EST) Potassium 3.0(Criti ciera) 3.5 - 5.0 mmol/L [facility] Comment: Called by: miguelina, Read [...] Chun MD CHEMISTRY ORDERABLES Performing Organization Address [facility] Co de Phone Number [facility] [place] [address] * (ABNORMAL) Hemoglobin and Hematocrit, blood (09/11/2020 11:47 AM EST) Pathologist [facility] [place] Hemoglobin 8.4(L) 11.7 - 15.5 gm/dL [facility] Hematocrit 26.8(L) 35.7 - 45.8 % [facility] Blood specimen (specimen) 09/11/2020 11:47 AM EST 09/11/2020 12:19 PM EST Narrative Resulting Agency Comment Spec In Lab Amarilys Cerna MD HEMATOLOGY ORDERABLE S Performing Organization Address [facility] Co de Phone Number [facility] [place] [address] * (ABNORMAL) Ferritin (09/11/2020 11:47 AM EST) [facility] Ferritin 12(L) 30 - 400 ng/mL [facility] Comment: Pediatric reference ranges not verified at [facility], interpret with caution. Reference ranges for females greater than 50 years of age approach values for men, i.e., 30-400 ng/mL. Blood specimen (specimen) 09/11/2020 11:47 AM EST 09/11/2020 12:19 PM EST Narrative Resulting Agency Comment Spec In Lab Abiodun Chun MD CHEMISTRY ORDERABLES Performing Organization Address [facility] Co de Phone Number [facility] [place] [address] * (ABNORMAL) Iron and TIBC (09/11/2020 11:47 AM EST) Iron 33 30 - 150 mcg/dL [facility] TIBC 494(H) 250 - 450 mcg/dL [facility] Iron Saturation 7(L) 20 - 50 % [facility] Blood specimen (specimen) 09/11/2020 11:47 AM EST 09/11/2020 12:19 PM EST Narrative Resulting Agency Comment Spec In Lab Abiodun Chun MD CHEMISTRY ORDERABLES Performing Organization Address [facility] Co de Phone Number [facility] [place] [address] * Scan, Peripheral Blood (09/11/2020 5:36 AM EST) Plat Estimate Normal [facility] RBC Morphology Abnormal [facility] Microcytes gtr than 10 /HPF [facility] Hypochromia Moderate [facility] Polychromasia Present >5/HPF [facility] Ovalocytes 1-5 /HPF [facility] Giant Platelets Less than 1 /HPF [facility] Blood specimen (specimen) 09/11/2020 5:36 AM EST 09/11/2020 6:02 AM EST Narrative Resulting Agency Comment Spec In Lab Carol Reyna MD HEMATOLOGY ORDERABLES Performing Organization Address [facility] Co de Phone Number [facility] [place] [address] * (ABNORMAL) Hemoglobin A1c (09/11/2020 5:36 AM [...] Mellitus, Diabetes Care 2013; 36: Suppl. 1, S67-74 Est Avg Gluc See note mg/dL [facility] [...] into estimated average glucose values. ??Diabetes Care 2008:31(8):5677-8327. Blood specimen (specimen) 09/11/2020 5:36 AM EST 09/11/2020 6:02 AM EST Narrative Resulting Agency Comment Spec In Lab Amarilys Cerna MD CHEMISTRY ORDERABLES [facility] [place] [address] * Peripheral Smear Review (09/11/2020 5:36 AM EST) Periph Smear Rev See Comment [facility] Comment: When completed by the Pathologist, report [id number] will display under Hematopathology Reports. Blood specimen (specimen) 09/11/2020 5:36 AM EST 09/11/2020 6:02 AM EST Narrative Resulting Agency Comment Spec In Lab Amarilys Cerna MD HEMATOLOGY ORDERABLE S [facility] [place] [address] * Differential, Automated (09/11/2020 5:36 AM EST) Neutrophils % 63.0 % [facility] Neutr Abs (ANC) 4.84 1.70 - 6.10 x10(3)/[facility] Lymphocytes % 23.9 % [facility] Lymphocytes Abs 1.8 0.9 - 3.2 x10(3)/[facility] Monocytes % 8.7 % [facility] Monocyte Abs 0.7 0.3 - 0.9 x10(3)/[facility] Eosinophils % 3.0 % [facility] Eosinophils Abs 0.2 0.0 - 0.4 x10(3)/[facility] Basophils % 0.9 % [facility] Basophils Abs 0.1 0.0 - 0.1 x10(3)/[facility] Immature Gran % 0.50 % [facility] Comment: Immature granulocytes(IG's)percentage and absolute count will include metamyelocytes, myelocytes, and promyelocytes. Blood smears from CBCs yielding IG's will be scanned manually for concordance. If this scan disagrees with the automated IG or if promyelocytes are noted, a manual differential will be performed. Nanci Gran Abs 0.04 0.00 - 0.04 x10(3)/[facility] Blood specimen (specimen) 09/11/2020 5:36 AM EST 09/11/2020 6:02 AM EST Narrative Resulting Agency Comment Spec In Lab Carol Reyna MD HEMATOLOGY ORDERABLES [facility] [place] [address] * (ABNORMAL) Hemogram (09/11/2020 5:36 AM EST) WBC 7.7 4.0 - 9.5 x10(3)/[facility] RBC 3.95(L) 4.00 - 5.21 x10(6)/[facility] Hemoglobin 8.4(L) 11.7 - 15.5 gm/dL [facility] Hematocrit 27.2(L) 35.7 - 45.8 % [facility] MCV 68.9(L) 82.6 - 94.4 fL [facility] MCH 21.3(L) 27.1 - 32.0 pg [facility] MCHC 30.9(L) 31.7 - 35.0 gm/dL [facility] Platelets 290 145 - 357 x10(3)/[facility] RDWSD 48.3(H) 37.0 - 46.0 [facility] RDWCV 19.8(H) 11.5 - 14.1 % [facility] MPV 9.9 7.6 - 12.9 [facility] nRBC % Auto 0.5 % [facility] nRBC Abs Auto 0.040(H) 0.000 - 0.000 x10(3)/[facility] Blood specimen (specimen) 09/11/2020 5:36 AM EST 09/11/2020 6:02 AM EST Narrative Resulting Agency Comment Spec In Lab Carol Reyna MD HEMATOLOGY ORDERABLES [facility] [place] [address] * Magnesium (09/11/2020 5:36 AM EST) Magnesium 0.82 0.69 - 1.07 mmol/L [facility] Blood specimen (specimen) 09/11/2020 5:36 AM EST 09/11/2020 6:02 AM EST Narrative Resulting Agency Comment Spec In Lab Amarilys Cerna MD CHEMISTRY ORDERABLES Performing Organization Address [facility] de Phone Number [facility] [place] [address] * (ABNORMAL) Hepatic Function Panel (09/11/2020 5:36 AM EST) Total Protein 6.8 6.1 - 8.0 gm/dL [facility] Albumin 4.4 3.2 - 5.2 gm/dL [facility] AST 16 0 - 30 unit/L [facility] ALT 16 0 - 30 unit/L [facility] Alk Phos 123(H) 35 - 105 unit/L [facility] Total Bilirubin 2.6(H) 0.2 - 1.3 mg/dL [facility] Comment:result rechecked-KS Bili, Direct 0.2 0.0 - 0.3 mg/dL [facility] Blood specimen (specimen) 09/11/2020 5:36 AM EST 09/11/2020 6:02 AM EST Narrative Resulting Agency Comment Spec In Lab Amarilys Cerna MD CHEMISTRY ORDERABLES Performing Organization Address [facility] de Phone Number [facility] [place] [address] * (ABNORMAL) BMP w/fasting Glucose (09/11/2020 5:36 AM EST) Glucose Fasting 195(H) 65 - 99 mg/dL [facility] Comment: ?Fasting* Glucose Interpretive Criteria [...] of Diabetes Mellitus, Position Statement from the [employer]. ??Diabetes Care, Volume 33, Supplement 1, Aug 2009 BUN 13 8 - 18 mg/dL [facility] Creatinine 0.90 0.70 - 1.20 mg/dL [facility] Sodium 140 135 - 145 mmol/L [facility] Potassium 3.2(L) 3.5 - 5.0 mmol/L [facility] Comment: Please note: ??Patients with WBC >100,000 may have falsely elevated Potassium levels. ??For accurate Potassium quantification in these patients send serum separator tube (gold top) for subsequent determinations. ??Contact the Clinical Chemistry Laboratory if there are any questions. Chloride 101 98 - 107 mmol/L [facility] CO2 27 22 - 31 mmol/L [facility] Anion Gap 12 5 - 15 mmol/L [facility] Calcium 9.1 8.5 - 10.5 mg/dL [facility] Estimated GFR 60 >=60 mL/min/1. 73 m?? [facility] [...] Cerna MD CHEMISTRY ORDERABLES [facility] [place] [address] * (ABNORMAL) APTT (09/11/2020 5:36 AM EST) PTT 24(L) 25 - 37 sec [facility] Comment: The PTT is NOT appropriate for heparin monitoring. Use the Anti-Xa level for heparin monitoring (HEP UFH) or LMWH monitoring (HEP LMW). A PTT less than 37 seconds generally indicates adequate hemostasis. Blood specimen (specimen) 09/11/2020 5:36 AM EST 09/11/2020 6:02 AM EST Narrative Resulting Agency Comment Spec In Lab Amarilys Cerna MD HEMATOLOGY ORDERABLE S Performing Organization Address [facility] Co de Phone Number [facility] [place] [address] * Prothrombin Time (09/11/2020 5:36 AM EST) PT 12.5 9.4 - 12.5 sec [facility] INR 1.1 [facility] Comment: An INR <2.0 indicates [...] MD HEMATOLOGY ORDERABLE S Performing Organization Address [facility] Co de Phone Number [facility] [place] [address] * Smear Review Report (09/11/2020 5:30 AM EST) Pathologist [facility] [place] Smear Review Report [id number] ? Location: [facility]; [id number]; B The signing pathologist has (i) examined the relevant preparation(s) for the specimen(s) and (ii) rendered or confirmed the diagnosis(es). . ? Smear Review DIAGNOSIS PERIPHERAL BLOOD, SMEAR: Moderate hypochromic microcytic anemia (see discussion) Electronically signed by: ??Raymundo Peña MD Verified: ??09/11/2020 ?Hematopathologist Performed at: ??-[facility] Dept. of Pathology, [place], [place] DISCUSSION This blood film is requested [...] for severe s/p BAV, ASCVD, and pAF. [facility] 09/11/2020 5:30 AM EST Carol Reyna MD PATHOLOGY/ CYTOLOGY ORDERABLES Performing Organization Address City/[facility]/ZIP Co de Phone Number [facility] [place] [address] * (ABNORMAL) POCT Glucose (09/11/2020 5:07 AM EST) POC Glucose 210(H) 65 - 199 mg/dL [facility] Comment: Supplemental ranges: <140 mg/dL before meals <180 mg/dL all other times of the day Blood specimen (specimen) 09/11/2020 5:07 AM EST 09/11/2020 5:07 AM EST Amarilys Cerna MD POINT OF CARE TEST O ISAIAH Performing Organization Address [facility] Co de Phone Number [facility] [place] [address] * Transfuse RBC (09/11/2020 4:45 AM EST) Amarilys Cerna MD NURSING TREATMENT OR DERABLES - BLOOD ADMIN * Transfuse RBC (09/11/2020 12:04 AM EST) Eamon Moser MD NURSING TREATMENT ORDERABLES - BLOOD ADMIN * (ABNORMAL) POCT Glucose (09/10/2020 10:45 PM EST) POC Glucose 225(H) 65 - 199 mg/dL [facility] Comment: Supplemental ranges: <140 mg/dL before meals <180 mg/dL all other times of the day Blood specimen (specimen) 09/10/2020 10:45 PM EST 09/10/2020 10:45 PM EST Amarilys Cerna MD POINT OF CARE TEST O ISAIAH Performing Organization Address City/[facility]/ZIP Co de Phone Number [facility] [place] [address] * Prepare RBC (09/10/2020 10:40 PM EST) Dispensed? Yes [facility] Blood specimen (specimen) 09/10/2020 10:40 PM EST 09/10/2020 10:46 PM EST Narrative Resulting Agency Comment Spec In Lab Amarilys Cerna MD BLOOD BANK PRODUCT O RDERABLES [facility] [place] [place] [address] * COVID-19 PCR (09/10/2020 9:44 PM EST) SARS-CoV-2 RNA PCR Not Detected Not Detected [facility] Comment: This result should be [...] using the Simplexa COVID-19 Direct Assay by [employer] as authorized by the FDA issued Emergency [...] Department of Pathology and Laboratory Medicine at [facility], certified under the Clinical Laboratory Improvement Amendments [...] fact sheets at the following FDA website: https://www.fda.gov/medical-devices/ymvknpxjtlt-tfgsiry-0890-myyzh-06-unyallzfx- use-a ysbwhllyhvkab-wmnexwm-ddlozrq/fvmfw-fswesvignga-jbhz SARS-CoV-2 Source TRAINING AND DEVELOPMENT REP Swab [facility] Nasopharyngeal swab (specimen) 09/10/2020 9:44 PM EST 09/10/2020 10:03 PM EST Comment:Symptoms->Surveillan ce Narrative Resulting Agency Comment Spec In Lab Eamon Moser MD MICROBIOLOGY - NERAL ORDERABLES Performing Organization Address [facility] Co de Phone Number [facility] [place] [address] * Prepare RBC (09/10/2020 7:40 PM EST) Dispensed? Yes [facility] Blood specimen (specimen) 09/10/2020 7:40 PM EST 09/10/2020 7:40 PM EST Eamon Moser MD BLOOD BANK PRODUC T ORDERABLES Performing Organization Address [facility] Co de Phone Number [facility] [place] [id number] * Differential, Automated (09/10/2020 7:25 PM EST) Neutrophils % 63.6 % [facility] Neutr Abs (ANC) 4.04 1.70 - 6.10 x10(3)/[facility] Lymphocytes % 24.1 % [facility] Lymphocytes Abs 1.5 0.9 - 3.2 x10(3)/[facility] Monocytes % 8.8 % [facility] Monocyte Abs 0.6 0.3 - 0.9 x10(3)/[facility] Eosinophils % 2.4 % [facility] Eosinophils Abs 0.2 0.0 - 0.4 x10(3)/[facility] Basophils % 0.8 % [facility] Basophils Abs 0.0 0.0 - 0.1 x10(3)/[facility] Immature Gran % 0.30 % [facility] Comment: Immature granulocytes(IG's)percentage and absolute count will include metamyelocytes, myelocytes, and promyelocytes. Blood smears from CBCs yielding IG's will be scanned manually for concordance. If this scan disagrees with the automated IG or if promyelocytes are noted, a manual differential will be performed. Nanci Gran Abs 0.02 0.00 - 0.04 x10(3)/[facility] Blood specimen (specimen) 09/10/2020 7:25 PM EST 09/10/2020 7:36 PM EST Narrative Resulting Agency Comment Spec In Lab Osito Calabrese Jr., MD HEMATOLOGY ORDERA BLES [facility] [place] [address] * (ABNORMAL) Hemogram (09/10/2020 7:25 PM EST) WBC 6.4 4.0 - 9.5 x10(3)/mc L [facility] RBC 2.75(L) 4.00 - 5.21 x10(6)/mc L [facility] Hemoglobin 5.2(Critic al) 11.7 - 15.5 gm/dL [facility] Comment: This result has been called to ION SALAZAR by JOB GAYTAN on 09 10 2020 at 2030, and has been read back. Hematocrit 18.2(L) 35.7 - 45.8 % [facility] MCV 66.2(L) 82.6 - 94.4 fL [facility] MCH 18.9(L) 27.1 - 32.0 pg [facility] MCHC 28.6(L) 31.7 - 35.0 gm/dL [facility] Platelets 264 145 - 357 x10(3)/mc L [facility] RDWSD 41.0 37.0 - 46.0 fL [facility] RDWCV 17.3(H) 11.5 - 14.1 % [facility] MPV 10.1 7.6 - 12.9 fL [facility] nRBC % Auto 0.5 % [facility] nRBC Abs Auto 0.030(H) 0.000 - 0.000 x10(3)/mc L [facility] Blood specimen (specimen) 09/10/2020 7:25 PM EST 09/10/2020 7:36 PM EST Narrative Resulting Agency Comment Spec In Lab Osito Calabrese Jr., MD HEMATOLOGY ORDERA BLES Performing Organization Address [facility] [place] [address] * (ABNORMAL) APTT (09/10/2020 7:25 PM EST) PTT 24(L) 25 - 37 sec [facility] Comment: The PTT is NOT appropriate for heparin monitoring. Use the Anti-Xa level for heparin monitoring (HEP UFH) or LMWH monitoring (HEP LMW). A PTT less than 37 seconds generally indicates adequate hemostasis. Blood specimen (specimen) 09/10/2020 7:25 PM EST 09/10/2020 7:36 PM EST Narrative Resulting Agency Comment Spec In Lab Eamon Moser MD HEMATOLOGY ORDERA BLES Performing Organization Address [facility]/ZIP Co de Phone Number [facility] [place] [address] * (ABNORMAL) Prothrombin Time (09/10/2020 7:25 PM EST) PT 13.8(H) 9.4 - 12.5 sec [facility] INR 1.2 [facility] Comment: An INR <2.0 indicates [...] MD HEMATOLOGY ORDERA BLES Performing Organization Address [facility]/ZIP Co de Phone Number [facility] [place] [address] * ABORH Recheck Status (09/10/2020 6:15 PM EST) Pathologist [facility] [place] ABORH Type Recheck Completed [facility] Blood specimen (specimen) 09/10/2020 6:15 PM EST 09/10/2020 6:37 PM EST Narrative Resulting Agency Comment Spec In Lab Osito Calabrese Jr., MD BLOOD BANK LAB OR DERABLES Performing Organization Address City/[facility]/ZIP Co de Phone Number [facility] [place] [address] * Antibody screen (09/10/2020 6:15 PM EST) Ab Screen Interp Negative [facility] Expires at 2359 on: 09/13/2020 [facility] Blood specimen (specimen) 09/10/2020 6:15 PM EST 09/10/2020 6:37 PM EST Narrative Resulting Agency Comment Spec In Lab Osito Calabrese Jr., MD BLOOD BANK LAB OR DERABLES Performing Organization Address City/[facility]/ZIP Co de Phone Number [facility] [place] [address] * ABO/Rh Typing (09/10/2020 6:15 PM EST) ABORH Type O Pos [facility] Blood specimen (specimen) 09/10/2020 6:15 PM EST 09/10/2020 6:37 PM EST Narrative Resulting Agency Comment Spec In Lab Osito Calabrese Jr., MD BLOOD BANK LAB OR DERABLES Performing Organization Address [facility] Co de Phone Number [facility] [place] [address] * SCAN DOC: LAB (09/10/2020 12:00 AM [...] Given 09/16/2020 8:37 AM EST 200 mg clopidogreL (Plavix) tablet 75 mg 75 [...] DAILY, First dose (after last modification) on 09/12/20 at 2100, Until Discontinued Given 09/18/2020 8:22 AM EST 324 mg Given 09/17/2020 8:23 PM EST 324 mg Given 09/17/2020 8:08 AM EST 324 mg glucagon (human recombinant) injection SolR 1 [...] 1608, High Blood Pressure, for SBP >160 insulin glargine (Lantus) (100 unit/mL) subcutaneous injection [...] Given 09/18/2020 4:03 AM EST 1 Units lidocaine (Lidoderm) 5 % topical patch 3 [...] 2100, Until Discontinued, Remove lidocaine 5% patch losartan (Cozaar) tablet 50 mg 50 mg, Oral, DAILY, First dose (after last modification) on 09/18/20 at 0900, Until Discontinued, Routine Given 09/18/2020 8:20 AM EST 50 mg ondansetron (pf) (Zofran) (2 mg/mL) injection 4 mg 4 mg, Intravenous, EVERY 8 HOURS PRN, Starting on Noreen 09/16/20 at 0823, Until 09/18/20 at 1608, Nausea, Routine Given 09/16/2020 2:19 PM EST 4 mg pantoprazole EC (Protonix) tablet 40 mg 40 mg, Oral, 2 TIMES DAILY, First dose on 09/13/20 at 2100, Until Discontinued, DO NOT CRUSH [...] Given 09/11/2020 8:41 AM EST 17 g rosuvastatin (Crestor) tablet 20 mg 20 mg, Oral, EVERY EVENING, First dose on Sun09/11/20 at 1700, Until Discontinued, Routine Given 09/17/2020 4:49 PM EST 20 mg Given 09/16/2020 5:09 PM EST 20 mg Given 09/15/2020 6:44 PM EST 20 mg senna-docusate (Pericolace) 8.6-50 mg per tablet 2 tablet 2 tablet, Oral, DAILY, First dose on Sun09/16/20 at 2100, Until Discontinued, Post-op day 1, Routine Given 09/17/2020 8:22 PM EST 2 tablets sodium chloride 0.9 % (flush) flush 5 mL 5 mL, Intravenous, EVERY 8 HOURS, First dose on Sun09/16/20 at 1015, Until Discontinued, Routine Given 09/17/2020 [...] Santacruz RN) 0821 (Given - Provider: Ren Philippe, LYLA) clopidogreL (Plavix) tablet 75 mg 75 mg, Oral, DAILY, First dose on Sun09/11/20 at 0900, Until Discontinued, Routine 0836 (Given [...] Ballesteros RN) 0808 (Given - Provider: Ashley Santacruz, RN)2022 (Given - Provider: Skyla Zuniga RN) 08 (Given - Provider: Ren Philippe, RN) insulin glargine (Lantus) (100 unit/mL) subcutaneous injection vial 10 Units 10 Units, Subcutaneous, DAILY, First dose on 09/11/20 at 0900, Until Discontinued, Routine 0844 (Given - Provider: Thanh Orlando RN) 0807 (Given - Provider: Ashley Santacruz, LYLA) 0820 (Given - Provider: Ren Philippe, RN) insulin lispro (HumaLOG) (100 unit/mL) subcutaneous [...] Juan Ballesteros RN)0807 (Given - Provider: Ashley Santacruz RN)1208 (Given - Provider: Ashley Santacruz RN)1649 (Given - Provider: Ashley Santacruz RN)2023 (Given - Provider: Skyla Zuniga RN) 0058 (Given - Provider: Skyla Zuniga RN)0403 (Given - Provider: Skyla Zuniga RN)0820 (Given - Provider: Ren Philippe, LYLA)1312 (Given - Provider: Ren Philippe RN) lidocaine [...] Oral, 2 TIMES DAILY, First dose on 09/13/20 at 2100, Until Discontinued, DO NOT CRUSH OR OPEN, Routine 0837 (Given - Provider: Thanh Orlando RN)2055 (Given - Provider: Juan Ballesteros, LYLA) 0809 (Given - Provider: Ashley Santacruz RN)2022 (Given - Provider: Skyla Zuniga RN) 0820 (Given - Provider: Ren Philippe RN) polyethylene glycoL (Miralax) packet 17 g 17 g, Oral, DAILY, First dose on 09/11/20 at 0900, Until Discontinued, Routine 0900 (Not Given - Provider: Thanh Orlando RN - Reason: Order parameters not met) 0808 (Given - Provider: Ashley Santacruz RN) 0900 (Not Given - Provider: Ren Philippe RN - Reason: Patient/family refused) rosuvastatin (Crestor) tablet 20 mg 20 mg, Oral, EVERY EVENING, First dose on 09/11/20 at 1700, Until Discontinued, Routine 1709 (Given - Provider: Fang Kerr, LYLA) 164 (Given - Provider: Ashley Santacruz RN) senna-docusate (Pericolace) 8.6-50 mg per tablet 2 tablet 2 tablet, Oral, DAILY, First dose on Noreen 09/16/20 at 2100, Until Discontinued, Post-op day 1, Routine 2100 (Not Given - Provider: Juan Ballesteros RN - Reason: Patient/family refused) 2021 (Given - Provider: Skyla Zuniga RN) sodium chloride 0.9 % (flush) flush 5 mL 5 mL, Intravenous, EVERY 8 HOURS, First dose on Noreen 09/16/20 at 1015, Until Discontinued, Routine 1036 (Given - Provider: Jos Santos, RN)1715 (Given - Provider: Fang Kerr RN) 0215 (Not Given - Provider: Juan Ballesteros RN - Reason: See comment - Comment: pt sleeping)1057 (Given - Provider: Ashley Santacruz, LYLA)1815 (Not Given - Provider: Skyla Zuniga RN [...] Juan Ballesteros RN)1121 (Given - Provider: Ashley Santacruz, LYLA) bisacodyL (Dulcolax) suppository 10 mg 10 mg, [...] SBP >140 2109 (Given - Provider: Juan Ballesteros, RN) 0010 (Given - Provider: Juan Ballesteros, RN)0334 (Given - Provider: Juan Ballesteros, RN) hydrALAZINE (Apresoline) (20 mg/mL) injection 10 [...] Intravenous, EVERY 8 HOURS PRN, Starting on Sun09/16/20 at 0823, Until 09/18/20 at 1608, Nausea, [...] documented as of this encounter Care Teams Crimper Operator Relationship Specialty Start Date End Date Reshma Baig MD [address] [place] [id number] PCP - General Family Medicine 11/08/18 06/23/21 documented as of this encounter
--- OUTSIDE RECORDS SUMMARY | 2024-03-17 14:20 | XMS_ITS | Encounter Summary ---
Author Organization [facility] Address [facility] [place] [address] Care Team Providers Care Automotive Service Management Teacher Name Role Phone Reshma Baig MD Primary Care Provider [phone] Reason for Visit * Auth/Cert Specialty Diagnoses / Procedures Referred By Malini carlson Referred To Contact Diagnoses Anemia Procedures EMERGENCY IPI Referral ID Status Reason Start Date Expiration Date Visits Re quested Visits Authorized [id number] 1 1 Encounter Details Date Type Department Care Team (Late st Contact Info) Description 09/12/2020 1:35 PM EST Anesthesia Event [place] [address] Ren Mirza MD [facility] [address] Anesthesia Record Procedure Summary Procedure Name Responsible Anesthesiologist Anesthesia Start Time Anesthesia Stop Time EGD WITH BIOPSY (WRVU 2.39) (Trunk) Ren Mirza MD 09/12/20 1335 09/12/20 1453 Events Date Time Event Comment 09/12/2020 1335 AN Verify 1335 Start 1335 An Start Data 1337 1348 An Induction 1352 Anesthesia Ready 1358 Procedure Start 1417 Quick Note Paulina started 1445 Procedure Stop 1453 an stop data 1453 Recovery or ICU Handoff Brigitte ent care was transferred to the destination unit staff after review of the patient's medical history, current anesthetic/surgical status and plan, according to the Provider Handoff Checklist. 1453 Stop Meds Name Total Propofol 20 mg Propofol INF 372.01 mg PHENYLephrine INF 1,120 mcg PHENYLephrine 80 mcg Lactated Ringers 0 mL * Agents Name O2 Air N2O O2 Auxiliary Flowmeter 1 * Blood No blood administrations on file. [...] cephalic vein (lateral side of arm), right; qdpx-qti-fixnsu catheter system; 20 gauge, 1 in length; rmt, toe puncher-vas; distraction, tolerated well, appears comfortable; 06/01/21 (LDA Cleanup utility RA#[id number]); 1650 (LDA Cleanup utility RA#[id number]) 09/11/20 0107 by Evette Santos LPN 06/01/21 1650 by Jonnathan Kim documented in this encounter Social History Tobacco [...] OR Notes * Anesthesia Postprocedure Evaluation - Ren Mirza MD - 09/12/2020 3:36 PM EST Department of Anesthesiology Post-procedure Note Patient: Shannan Moody Procedure Summary Date: 09/12/20 Room / Location: [facility] ENDO 2 / [facility] ENDOSCOPY Anesthesia Start: 1335 Anesthesia Stop: 1453 Procedures: EGD WITH BIOPSY (WRVU 2.49) (N/A Trunk) COLONOSCOPY, DIAGNOSTIC (N/A Trunk) Diagnosis: (upper endo/colo) Surgeon: Mane Avila MD Responsible Provider: Ren Mirza MD Anesthesia Type: general ASA Status: 4 All Anesthesia Providers: Anesthesiologist: Ren Mirza MD ASSISTANT COMMUNITY MANAGER: Alma Rios CRNA Vitals Value Taken Time BP Temp Pulse Resp SpO2 Pain Level Patient Location: PACU/SD Level of Consciousness: Awake and Alert Pain Management: Satisfactory Analgesia PONV: None Cardiovascular Status: At Baseline and Hemodynamically Stable Respiratory Status: At Baseline and Room Air Postoperative Fluid Status: Intravascular EUvolemia Possible Anesthetic Complications: NONE apparent at time of evaluation Final Primary Anesthesia Type: MAC (The anesthetic type performed was the same as planned.) Comments: * Anesthesia Preprocedure Evaluation - Ren Mirza MD - 09/12/2020 12:24 PM EST Pre-Anesthesia Evaluation for: Shannan Moody a 80 y.o. female. Procedure(s): EGD, UPPER GI ENDOSCOPY COLONOSCOPY, DIAGNOSTIC Patient Active Problem List Diagnosis ??? Anemia, [...] DRAINAGE 04/28/2020 CT Guided Drain Peritoneal 04/28/2020 [facility] RAD CAT SCAN ??? HYSTERECTOMY, VAGINAL ??? IR BILIARY TUBE CHECK/CHANGE/REMOVE 06/03/2020 IR Biliary Tube Check/Change/Remove 06/03/2020 Jos Collins, DO [facility] INTERVENTIONL RAD ??? IR CHOLECYSTOSTOMY TUBE PLACEMENT 04/22/2020 IR Cholecystostomy Tube Placement 04/22/2020 Jos Collins, DO [facility] INTERVENTIONL RAD ??? IR DRAIN CHECK/CHANGE/REMOVE 05/19/2020 IR Drain Check/Change/Remove 05/19/2020 Jos Collins, DO [facility] INTERVENTIONL RAD ??? PRO LAP, CHOLECYSTECTOMY/GRAPH N/A 07/15/2020 LAPAROSCOPIC CHOLECYSTECTOMY WITH CHOLANGIOGRAM (WRVU 11.47) performed by Hong Rosenthal MD at [facility] MAIN OR ??? PRO UPPER GI ENDOSCOPY, DIAGNOSTIC N/A 05/03/2020 EGD, UPPER GI ENDOSCOPY performed by Brigitte Graf MD at [facility] ENDOSCOPY Social History Tobacco Use ??? Smoking [...] SP02 Pulse Resp BP SpO2 O2 Device 09/11/20 1655 -- 57 bpm 53 -- (!) 99/32 93 % -- 09/11/20 1700 36.6 ??C (97.9 ??F) 53 bpm 53 16 (!) 95/33 94 % RA 09/11/20 1840 -- -- 61 -- 118/44 -- -- 09/11/20 1950 36.6 ??C (97.9 ??F) 56 bpm 57 18 131/44 97 % RA 09/12/20 0000 -- 52 bpm 55 -- 159/52 99 % RA 09/12/20 0450 -- 64 bpm 64 18 160/46 97 % RA 09/12/20 0656 -- 58 bpm 57 -- -- 94 % -- 09/12/20 0745 36.8 ??C (98.2 ??F) 53 bpm 53 16 110/46 96 % RA 09/12/20 1135 36.7 ??C (98.1 ??F) 54 bpm 51 16 110/42 95 % RA Body mass index is 31.09 kg/m??. Height: 157.5 cm (5' 2) Weight: 77.1 kg (169 lb 15.6 oz) Airway Assessment: Mallampati: II TM distance: >3 FB Neck ROM: full Cardiovascular Assessment: Rhythm: regular Rate: normal (+) murmur Pulmonary Assessment: pulmonary exam normal Dental Assessment: - normal exam Misc Assessment: Patient is wearing No contact(s). IV access: Peripheral line Anesthesia Plan: ASA 4 MAC, with a(n) intravenous induction 80 year old female presenting for EGD/colo Pt has a PMH of DM2 (A1c 8.5 03/2020), HTN, HLD, and severe who presented with cholecystitis. 05/2020 TTE: Limited for LV function and aortic valve structural and function. Aortic valve is trileaflet and significantly calcified. There is severe aortic stenosis, with an CORINE by planimetry of 0.92 cm2 (mean gradient 18 mmHg, SVI 29 cc/m2). Trace aortic regurgitation. EF 72% and no wall motion abnormalities. Right ventricle is normal in size and function. PASP of 35 mmHg plus estimated RA pressure. The mitral valve leaflets and its apparatus are calcified. Mean gradient across the valve is 7 mmHg at a HR in the 60s. No pericardial effusion. Prior anesthetic hx: Tolerated MAC for upper endoscopy without issue. EKG: reviewed. Lab Results Component Value Date WBC 7.8 09/12/2020 HGB 8.0 (L) 09/12/2020 HCT 26.0 (L) 09/12/2020 MCV 70.8 (L) 09/12/2020 PLATELET 353 09/12/2020 Lab Results Component Value Date NA 140 09/12/2020 K 4.2 09/12/2020 CL 102 09/12/2020 CO2 24 09/12/2020 BUN 17 09/12/2020 CREATININE 1.15 09/12/2020 GLUCOSE 261 (H) 09/10/2020 GLUCFASTING 136 (H) 09/12/2020 CALCIUM 9.3 09/12/2020 ESTGFR 45 (L) 09/12/2020 Lab Results Component Value Date ALT 21 09/12/2020 AST 23 09/12/2020 ALKPHOS 120 (H) 09/12/2020 BILITOT 2.7 (H) 09/12/2020 BILIDIR 0.3 09/12/2020 ALBUMIN 4.5 09/12/2020 PROT 7.1 09/12/2020 Lab Results Component Value Date PT 12.9 (H) 09/12/2020 PTT 25 09/12/2020 Lab Results Component Value Date TSH 1.22 04/22/2020 Lab Results Component Value Date HA1C 8.3 (H) 09/11/2020 Allergies: No Known Allergies NPO Status: Appropriate Plan: MAC with GA back up. Region - Other Informed Consent: Anesthetic plan and risks discussed with patient. Use of blood products discussed with patient who consented to blood products. Plan discussed with ASSISTANT COMMUNITY MANAGER. PAT Clinic Note documented in this encounter Plan of Treatment Not on file documented as of this encounter Visit Diagnoses Not on filedocumented in this encounter Administered Medications Inactive Administered Medications - up to 3 most recent administrations Medication Order MAR Action Action Date Dose Rate Site lactated ringers infusion CONTINUOUS PRN, Starting on 09/12/20 at 1401, Until 09/12/20 at 1453, Anesthesia Intra-op New Bag 09/12/2020 1:48 PM EST PHENYLephrine (CHOCO-SYNEPHRINE) 20 mg in sodium chloride 250 mL (standard ADULT & Pedi greater than 20kg) infusion CONTINUOUS PRN, Starting on 09/12/20 at 1348, Until 09/12/20 at 1453, Anesthesia Intra-op, Routine Rate/Dose Change 09/12/2020 2:33 PM EST 20 mcg/min 15 mL/hr Rate/Dose Change 09/12/2020 2:27 PM EST 15 mcg/min 11.3 mL /hr Rate/Dose Change 09/12/2020 2:17 PM EST 10 mcg/min 7.5 mL/ hr PHENYLephrine in NS (PF) (CHOCO-SYNEPHRINE) 0.8 mg/10 mL (80 mcg/mL) multi-dose injection Syrg PRN, Starting on 09/12/20 at 1413, Until 09/12/20 at 1453, Anesthesia Intra-op, Routine Given 09/12/2020 2:13 PM EST 80 mcg propofoL (Diprivan) 10 mg/mL bolus injection (Anesthesia) PRN, Starting on 09/12/20 at 1353, Until 09/12/20 at 1453, Anesthesia Intra-op Given 09/12/2020 1:57 PM EST 10 mg Given 09/12/2020 1:53 PM EST 10 mg propofoL (Diprivan) infusion CONTINUOUS PRN, Starting on 09/12/20 at 1348, Until [place] 09/12/20 at 1453, Anesthesia Intra-op, Routine Rate/Dose Change 09/12/2020 2:23 PM EST 75 mcg/kg/min 34.7 mL/hr Rate/Dose Change 09/12/2020 2:20 PM EST 100 mcg/kg/min 46. 3 mL/hr Rate/Dose Change 09/12/2020 2:13 PM EST 75 mcg/kg/min 34.7 mL/hr documented in this encounter Care Teams Automotive Service Management Teacher Relationship Specialty Start Date End Date Reshma Baig MD [address] [place] [address] PCP - General Family Medicine 11/08/18 06/23/21 documented as of this encounter
--- OUTSIDE RECORDS SUMMARY | 2024-03-17 14:21 | XMS_ITS | Encounter Summary ---
Author Organization Formerly [facility] Address [facility] [place] [address] Care Team Providers Care Job Coaching Name Role Phone Reshma Baig MD Primary Care Provider [phone] Reason for Visit * Reason Comments Abnormal Labs hemoglobin 5.4 * Auth/Cert Specialty Diagnoses / Procedures Referred By Malini carlson Referred To Contact Diagnoses Anemia Procedures EMERGENCY IPI Referral ID Status Reason Start Date Expiration Date Visits Re quested Visits Authorized [id number] 1 1 Encounter Details Date Type Department Care Team (Late st Contact Info) Description 09/12/2020 12:30 PM EST - 09/12/2020 1:45 PM EST Surgery [place] [address] Mane Avila MD [facility] [place] [address] EGD WITH BIOPSY (WRVU 2.39) Social History Tobacco Use Types Packs/Day Years [...] Sign Reading Time Taken Comments Blood Pressure 110/42 09/12/2020 11:35 AM EST Pulse 51 09/12/2020 11:35 AM EST Temperature 36.7 ??C (98.1 ??F) 09/12/2020 1 1:35 AM EST Respiratory Rate 16 09/12/2020 11:3 5 AM EST Oxygen Saturation 95% 09/12/2020 11: 35 AM EST Inhaled Oxygen Concentration - - Weight 77.1 kg (169 lb 15.6 oz) 09/12/2020 6:56 AM EST Height 157.5 cm (5' 2) 09/10/2020 4:38 PM EST Body Mass Index 31.65 09/10/2020 4:38 PM EST documented in this encounter Discharge Summaries * Prashanth Jacob PA - 09/18/2020 10:27 AM EST Inpatient - Discharge Summary Patient Name: Shannan Chaudhary Patient Age: 80 y.o. Birthdate: 1940 Language: Egyptian Race: White Ethnicity: Not nor Admit Date: 09/10/2020 Discharge Date: 09/16/20 Attending Physician: Pan Hurtado MD Follow-up Recommendations for Providers: ??? Please continue routine management of cardiovascular risk factors including blood pressure, lipids, glucose, etc. ??? Please note any medication changes. ??? Our office will schedule a follow-up appointment with your PCP, Reshma Baig MD, or Primary Base Engineer, in ~ 7-10 days. ??? Our office will schedule a follow-up appointment with your Sanforizing Machine Operator, Dr. Esau Rahman in 4 weeks with a chest x-ray, EKG, Echo, CBC, and CMP. ?? Hzxr-Ppypgv-zs interval: After initial 30 day follow-up appointment , all TAVR patients will follow-up again in one year with an echo. Inpatient Provider Contact Information: [facility] Section of Cardiac Surgery [facility] [address] FAX [phone] Discharge Diagnoses (Hospital Problems) Primary Diagnoses: Aortic [...] DRAINAGE 04/28/2020 CT Guided Drain Peritoneal 04/28/2020 [facility] RAD CAT SCAN ??? HYSTERECTOMY, VAGINAL ??? IR BILIARY TUBE CHECK/CHANGE/REMOVE 06/03/2020 IR Biliary Tube Check/Change/Remove 06/03/2020 Jos Collins, DO [facility] INTERVENTIONL RAD ??? IR CHOLECYSTOSTOMY TUBE PLACEMENT 04/22/2020 IR Cholecystostomy Tube Placement 04/22/2020 Jos Collins, DO [facility] INTERVENTIONL RAD ??? IR DRAIN CHECK/CHANGE/REMOVE 05/19/2020 IR Drain Check/Change/Remove 05/19/2020 Jos Collins, DO [facility] INTERVENTIONL RAD ??? PRO COLONOSCOPY, DIAGNOSTIC N/A 09/12/2020 COLONOSCOPY, DIAGNOSTIC performed by Mane Avila MD at [facility] ENDOSCOPY ??? PRO LAP, CHOLECYSTECTOMY/GRAPH N/A 07/15/2020 LAPAROSCOPIC CHOLECYSTECTOMY WITH CHOLANGIOGRAM (WRVU 11.47) performed by Hong Rosenthal MD at [facility] MAIN OR ??? PRO UPPER GI ENDOSCOPY, BIOPSY N/A 09/12/2020 EGD WITH BIOPSY (WRVU 2.49) performed by Mane Avila MD at [facility] ENDOSCOPY ??? PRO UPPER GI ENDOSCOPY, DIAGNOSTIC N/A 05/03/2020 EGD, UPPER GI ENDOSCOPY performed by Brigitte Graf MD at [facility] ENDOSCOPY Prior To Admission Medications Medications Prior [...] Hospital Course: Shannan Chaudhary was admitted to [facility] on 09/10/2020 via admission from clinic to [...] TF TAVR She was brought to the film laboratory technician 09/16/[address] Pan Hurtado and Esau [...] Quantity: 300 each Refills: 3 Blood-Glucose Meter [facility] One Touch Ultra Brand, [...] or drainage from your procedural sites. Your Sanforizing Machine Operator, Dr. Esau Rahman and/or the Hha may be reached at . You may also contact KAMI Mayberry RN, TAVR Patient Case Coordinator at [phone] with any questions or issues. Antibiotic prophylaxis: [...] Please refer to the card with the [place] [employer] Guidelines for more information. You have been provided with a copy of this card. Please refer to the [place] [employer] Guidelines for more information. Good [...] friends, go to a movie, go to catholic, etc. Heavy activities: No hunting, skiing, jogging, [...] should resume a low fat, low cholesterol, [place] [employer] Diet. Driving: No driving for [...] pain, warmth or drainage. Please call your rubber compounder supervisor's office if you haveany discharge or drainage from your procedural sites. If there is a lot of swelling, apply yakelin wraps during the day and remove at bedtime. Elevate your legs when you are sitting. Home oxygen therapy: N/A Follow up appointments: ??? Our office will schedule a follow-up appointment with your PCP, Reshma Baig MD, or Primary Base Engineer, in ~ 7-10 days. ??? Our office will schedule a follow-up appointment with your Sanforizing Machine Operator, Dr. Esau Rahman, in 4 weeks with a chest x-ray, EKG, Echo, and labs prior to your appointment. ?? Svmr-Azybib-lw interval: After initial 30 day follow-up appointment , all TAVR patients will follow-up again in one year with an echo. Cardiac Rehabilitation: Shannan Chaudhary was seen today regarding participation in the outpatient Phase 2 Cardiac Rehabilitation at [facility]. The patient agrees to a referral to this program. The referral will be sent at discharge and the patient should be contacted by the Program within 1- 2 weeks from discharge. Future Appointments and Orders Future Appointments and Orders Future Appointments Provider Department Dept Phone 10/18/2020 12:30 PM LAB, THREE L Lab [address] [place] [address] Arrive at: Academic Director Area [phone] 10/18/2020 1:00 PM ECHO REGULAR Non-Invasive Cardiology Lab [facility] Arrive at: Academic Director Area [phone] 10/18/2020 2:30 PM NURSE, CARDIOLOGY Cardiology at [facility] Arrive at: Academic Director Area [phone] 10/18/2020 3:00 PM Maria L Green PA Cardiology at [facility] Arrive at: Academic Director Area [phone] Future Orders Complete By Expires CBC (with Diff) [DAX178 Custom] 10/19/2020 (Approximate) 03/18/2021 Process Instructions: INCLUDES: WBC, RBC, Hgb, Hct, Platelets, RBC Indices and Differential Scheduling Instructions: Comments: Questions: Comprehensive metabolic panel (non-fasting) [LAB17 Custom] 10/19/2020 (Approximate) 03/18/2021 Process Instructions: INCLUDES: Calcium, T Protein, Albumin, AST, ALT, Alk Phos, T Bili, BUN, Creat, GFR, Glucose, Lytes. Scheduling Instructions: Comments: Questions: Echocardiogram Transthoracic([facility] or [facility]) [02947 CPT(R)] 10/19/2020 (Approximate) 03/18/2021 Process Instructions: Scheduling Instructions: Questions: Is a Bubble Study requested?: Does the patient have Congenital Heart Disease?: GA rationale: Does patient require sedation?: Where should this exam be performed?: [facility] EKG 12 Lead [21955 CPT(R)] 10/19/2020 (Approximate) 03/18/2021 Process Instructions: Scheduling Instructions: Questions: Which location will this be performed?: [facility] Is a rhythm strip needed?: No XR Chest PA & Lateral (Generic) [82722 09868 Custom] 10/19/2020 (Approximate) 03/18/2021 Process Instructions: Scheduling Instructions: Questions: Where will study be performed?: [facility] Radiology Portable exam?: Reason for exam and clinical history: s/p TAVR Clinical information / sanchez questions: Stat read required?: Date of injury if applicable: Requested Time: Referral to Cardiac Rehab [AZQ405 Custom] As directed Process Instructions: If no progress note charted, please enter Clinical details in comments. Scheduling Instructions: Questions: My question or request is: TAVR- CR at [facility] Referral to Home Health - at DISCHARGE [CDV4322 CPT(R)] As directed Process Instructions: Scheduling Instructions: Comments: DOCUMENTATION FOR VNA SERVICES (INCLUDING THOSE PATIENTS WITH MEDICARE COVERAGE REQUIRING HOME VNA SERVICES AND/OR HOSPICE SERVICES) PATIENT'S LOCATION: Shannan Chaudhary [address] [place] [phone] (home) Telephone Information: Casting Molder's Name: patient In discussion with the attending physician, it is certified that this patient is under their care and that they, or a Nurse Practitioner, or Physician Radio Officer who is working directly with them, hada [...] for services as follows: HOME HEALTH AGENCY: [facility] PHONE: [phone] FAX: [phone] RN orders: Cardiopulmonary assessment, incisional assessment, assess [...] issues please call the Cardiac SurgeryOffice at [phone] FOR MEDICARE ONLY: (please delete this section [...] noted. Questions: [facility] Patient location post discharge: Home What services are requested: Registered Nurse Physical Therapy Start date: Responsible MD post discharge contact info: PCP Walker standard [EQ135 Custom] As directed Process Instructions: Scheduling Instructions: Comments: Shannan Shic [address] [facility] [address] (home) Telephone Information: Diagnosis:severe anemia, s/p TAVR with Unsteady gait Significant weakness, ataxia or gait abnormality Patient's: Hgt: 5'2 Wgt: 174 lbs VENDOR: [facility] Ordering: Front wheel walker Deliver to 's hospital room #: 445 Questions: Vendor Name/Contact information: [facility] Discharge References/Attachments EGD (Upper Endoscopy): Post-op (Egyptian) Colonoscopy: Post-op (Egyptian) Arrangements for VNA/home care: As above. Signed: Prashanth Jacob PA-C [facility] Section of Cardiac Surgery Date: 09/18/2020 CC: MD Safia Mcdonald Linda, MD [address] [place] [address] documented in this encounter Discharge Instructions * [...] or drainage from your procedural sites. Your Sanforizing Machine Operator, Dr. Esau Rahman and/or the Hha may be reached at . ?? You may also contact KAMI Mayberry RN, TAVR Patient Case Coordinator at [phone] with any questions or issues. ?? Antibiotic [...] Please refer to the card with the [place] [employer] Guidelines for more information. You have been provided with a copy of this card. Please refer to the [place] Heart [employer] Guidelines for more information. Good [...] friends, go to a movie, go to catholic, etc. ?? Heavy activities: No hunting, skiing, [...] should resume a low fat, low cholesterol, [place] [employer] Diet. ?? Driving: No driving [...] pain, warmth or drainage. Please call your rubber compounder supervisor's office if you haveany discharge or drainage from your procedural sites. If there is a lot of swelling, apply yakelin wraps during the day and remove at bedtime. Elevate your legs when you are sitting. ?? Home oxygen therapy: N/A ?? Follow up appointments: ?? Our office will schedule a follow-up appointment with your PCP, Reshma Baig MD, or Primary Base Engineer, in ~ 7-10 days. ?? Our office will schedule a follow-up appointment with your Sanforizing Machine Operator, Dr. Esau Rahman, in 4 weeks with a chest x-ray, EKG, Echo, and labs prior to your appointment. ? Iydy-Aqxkpz-pt interval: After initial 30 day follow-up appointment , all TAVR patients will follow-up again in one year with an echo. ?? Cardiac Rehabilitation: Shannan Chaudhary??was seen today regarding participation in the outpatient Phase 2 Cardiac Rehabilitation at [facility]. The patient agrees to a referral to this program.? The referral will be sent at discharge and the patient should be contacted by the Program within 1- 2 weeks from discharge. ?? * Attachments The following attachments cannot be sent through Care Everywhere. * EGD (Upper Endoscopy): Post-op (Egyptian) * Colonoscopy: Post-op (Egyptian) documented in this encounter Medications at Time [...] 10.65 400 each 3 10/03/2016 Blood-Glucose Meter [facility] One Touch Ultra Brand, 250.02. 1 each 0 12/02/2013 Lancets [facility] Use twice daily or [...] this encounter Progress Notes * Leandra Paz, QUARRY BOSS - 09/18/2020 1:14 PM EST Physical Therapy [...] and owns. Ambualted independently , without device, QUARRY BOSS. ?? Precautions/Special Considerations:??universal ? Mobility and Positioning [...] Time in 10:45-10:55) LEANDRA PAZ PTA Pager: [phone] Physical Therapy Inpatient Rehabilitation Department * Renetta Contreras, OT - 09/18/2020 12:30 PM EST Occupational [...] DRAINAGE 04/28/2020 CT Guided Drain Peritoneal 04/28/2020 [facility] RAD CAT SCAN ??? HYSTERECTOMY, VAGINAL ??? IR BILIARY TUBE CHECK/CHANGE/REMOVE 06/03/2020 IR Biliary Tube Check/Change/Remove 06/03/2020 Jos Collins, DO [facility] INTERVENTIONL RAD ??? IR CHOLECYSTOSTOMY TUBE PLACEMENT 04/22/2020 IR Cholecystostomy Tube Placement 04/22/2020 Jos Collins, DO [facility] INTERVENTIONL RAD ??? IR DRAIN CHECK/CHANGE/REMOVE 05/19/2020 IR Drain Check/Change/Remove 05/19/2020 Jos Collins, DO [facility] INTERVENTIONL RAD ??? PRO COLONOSCOPY, DIAGNOSTIC N/A 09/12/2020 COLONOSCOPY, DIAGNOSTIC performed by Mane Avila MD at [facility] ENDOSCOPY ??? PRO LAP, CHOLECYSTECTOMY/GRAPH N/A 07/15/2020 LAPAROSCOPIC CHOLECYSTECTOMY WITH CHOLANGIOGRAM (WRVU 11.47) performed by Hong Rosenthal MD at [facility] MAIN OR ??? PRO UPPER GI ENDOSCOPY, BIOPSY N/A 09/12/2020 EGD WITH BIOPSY (WRVU 2.49) performed by Mane Avila MD at [facility] ENDOSCOPY ??? 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 She says it is w/c accessible. She has a stall shower with a seat and grab bar. She does not have grab bars around the toilet. DME: shower seat, grab bars Baseline ADL/Mobility: Pt was independent QUARRY BOSS. She ambulated w/o a device, managed her ADL's and IADL's. 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 She reports being very tired prior to [...] WFL Vision & Perception: ?? corrective lenses chain maker Communication: WFL Range of motion, strength, coordination: [...] and measurable assessment of functional outcome. Pager: [phone] RENETTA CONTRERAS OT 09/18/2020 Occupational Therapy Rehabilitation Department * Teresita Mccloud RN - 09/18/2020 11:22 AM EST Patient to discharge home today, [facility] walker delivered to patient room. Patient will be getting VNA services from [facility]. Orders posted by and will start care [...] therapy. Rain Winter OT Inpatient Rehab Pager #[phone] * Chioma Vann RN - 09/17/2020 2:01 [...] Home Health Agency Home Care / Non-Medical: [facility]. PHONE: [phone] FAX: [phone] Transportation: daughter Current DME: Equipment Currently Used at Home: none DME Needed at DC: Equipment Needed After Discharge: FWW [facility] Located @ [place], [place] Functional status prior to admission: independent Home Environment: Lives With: alone. Living Arrangements: apartment. . Current Functional Ability: independent with stand by assist Patient is insured through: Primary Insurance: [email or web address] [place] Payor: [email or web address] [place] / Plan[place] VHP / Product Type: *No Product type* / Secondary Insurance: MEDICARE Prescription Coverage: yes Preferred Pharmacy: [facility] [place] [address] [facility] [place] [place] [address] [facility] [address] [facility] [address] This plan was formulated with input from patient, family and team. All are in agreement with plan. Chioma Vann RN, MSN Medical Imaging Specialist - Cardiology Office of Care Management Pager: [phone] Work * Mikala Borden, PT - 09/17/2020 [...] and owns. Ambualted independently , without device, QUARRY BOSS. ?? Precautions/Special Considerations:??none specified ? Mobility and [...] ?? Pt left supine in bed Assessment: Shnanan Chaudhary was seen today for physical therapy [...] plan as stated. Time IN / OUT: 5626-6849 Total Evaluation Minutes, Physical Therapy: 25(te-fx2) MIKALA BORDEN, PT Pager: [phone] Physical Therapy Inpatient Rehabilitation Department * Ashley [...] 0600 and on the weekends please page [phone]. * Jordan Davenport - 09/17/2020 11:22 AM [...] consulted in the interim. Jordan Davenport Pager: [phone] * Mikala Borden, PT - 09/16/2020 11:11 [...] and owns. Ambualted independently , without device, QUARRY BOSS. ?? Precautions/Special Considerations: none specified ? Mobility [...] plan as stated. Time IN / OUT: 0038-5469 Total Evaluation Minutes, Physical Therapy: 24(te-f x2) MIKALA BORDEN PT Pager: [phone] Physical Therapy Inpatient Rehabilitation Department * Almaz Carias, MEDICAL PHYSICS PROFESSOR - 09/16/2020 8:48 AM EST Cardiac Surgery [...] 0600 and on the weekends please page [phone]. * Esau Rahman MD - 09/16/2020 8:11 [...] vial 10 Units 10 Units Subcutaneous Daily Carlo Reyna MD 10 Units at 09/15/20 0857 ??? lidocaine (Lidoderm) 5 % topical patch 3 patch 3 patch Transdermal Daily Carol Reyna MD 3 patch at 09/14/20 205 And ??? lidocaine (Lidoderm) topical patch REMOVAL 3 patch Transdermal Q24H Carol Reyna MD No current [facility]-ordered outpatient medications on file. Lab Results Component [...] received in unit S/P TAVR in the film laboratory technician. While sheath being pulled patient became profoundly hypotensive requiring up to 15 mcgs of Levophed. Intubation was being considered but patient improved with blood pressure improvement. On arrival in [facility] patient was on NRB and on Levo at 2. Patient also received 1 unit of blood and 1 liter of NSaline in film laboratory technician. Shortly after arrival Right groin perclose started to bleed. Pressure was held. component lab tech PA over to inject lido with epi into rightgroin. He then pulled Left groin arterial sheath. At 6:30 Left groin venous sheath pulled by RN. Patient does only have one peripheral IV. Unable to obtain 2nd peripheral line despite attempts by Dr. Patel and IV team. Patient stable. Report given to Night RN. * Dago Merchant PA - 09/15/2020 5:06 PM EST [facility] Heart & Vascular Center Interventional Cardiology Structural [...] neurological deficit. Dago Merchant PA-C Interventional Cardiology [facility] Heart [facility] V[facility] Pager [phone] * Natalia Kamara MD - 09/15/2020 4:39 [...] 3 wbc, hgb, hct plt Recent Labs 09/15/2044409/14/20 03509/13/20 2250 09/13/20 0539 WBC 6.9 6.5 [...] lbs vs. SS weights SULEMAN Shaver Pager: [phone] * Alvin Serna MD - 09/15/2020 6:36 [...] Note: Added automatically from request for surgery [id number] ??? Obesity (BMI 30.0-34.9) ??? Aortic valve [...] additional CP, dyspnea, nausea, diaphoresis, lightheadedness, dizziness. -EGD/[facility] on 09/12 negative -TAVR scheduled for today [...] additional CP, dyspnea, nausea, diaphoresis, lightheadedness, dizziness. -EGD/[facility] on 09/12 negative -CTA for TAVR scheduled [...] radial/DP/PT pulses easily palpable Recent Labs 09/14/20 03509/13/20 2250 09/13/20 1125 09/13/20 0539 09/12/20 0143 [...] on clopidogrel as antiplatelet agent. 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 A letter describing our affiliations was reviewed with them and they were educated about their right to choose where referrals are placed. Provided patient with [facility] Star Quality Rating for Home care hand out. Patient requests referral to [facility]. PHONE: [phone] FAX: [phone] Expected date of discharge: 09/18/20. Referral routed to the Vacuum Frame Operator for matching with agency/vendor and to provide any required information. Chioma Vann RN, MSN Medical Imaging Specialist - Cardiology Office of Care Management Pager: [phone] Work * Mikala Borden, PT - 09/13/2020 [...] have outpt PT eval this week in [facility] to address. Patient with the following active problems: Past Medical History: Diagnosis Date ??? Actinic keratosis 08/31/2011 ??? Diabetes ??? Seborrheic keratosis 08/31/2011 ??? Severe aortic stenosis Past Surgical History: Procedure Laterality Date ??? CT PERITONEAL DRAINAGE 04/28/2020 CT Guided Drain Peritoneal 04/28/2020 [facility] RAD CAT SCAN ??? HYSTERECTOMY, VAGINAL ??? IR BILIARY TUBE CHECK/CHANGE/REMOVE 06/03/2020 IR Biliary Tube Check/Change/Remove 06/03/2020 Jos Collins, DO [facility] INTERVENTIONL RAD ??? IR CHOLECYSTOSTOMY TUBE PLACEMENT 04/22/2020 IR Cholecystostomy Tube Placement 04/22/2020 Jos Collins, DO [facility] INTERVENTIONL RAD ??? IR DRAIN CHECK/CHANGE/REMOVE 05/19/2020 IR Drain Check/Change/Remove 05/19/2020 Jos Collins, DO [facility] INTERVENTIONL RAD ??? PRO COLONOSCOPY, DIAGNOSTIC N/A 09/12/2020 COLONOSCOPY, DIAGNOSTIC performed by Mane Avial MD at [facility] ENDOSCOPY ??? PRO LAP, CHOLECYSTECTOMY/GRAPH N/A 07/15/2020 LAPAROSCOPIC CHOLECYSTECTOMY WITH CHOLANGIOGRAM (WRVU 11.47) performed by Hong Rosenthal MD at [facility] MAIN OR ??? PRO UPPER GI ENDOSCOPY, BIOPSY N/A 09/12/2020 EGD WITH BIOPSY (WRVU 2.49) performed by Mane Avila MD at [facility] ENDOSCOPY ??? 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 Ambualted independently , without device, QUARRY BOSS. Precautions/Special Considerations: none specified Mobility and Positioning [...] mobility recommendations discussed with nursing. Assessment: Shannan Francis Heidy was seen today for physical therapy evaluation. [...] walker, Commode and may ultimately benefit rom haivng a FWW if it gives her some relief [...] in this evaluation. Time IN / OUT: 6871-5669 Total Evaluation Minutes, Physical Therapy: 20(evnish BORDEN PT Pager: [phone] Physical Therapy Inpatient Rehabilitation Department * Alvin [...] additional CP, dyspnea, nausea, diaphoresis, lightheadedness, dizziness. -EGD/[facility] on 09/12 negative -severe muscle spasms in [...] radial/DP/PT pulses easily palpable Recent Labs 09/13/20 0509/12/20221609/12/20 1912 09/12/2014209/11/20 0536 WBC 6.1 -- -- -- 7.8 -- 7.7 HGB 8.5* 8.8* 8.7* < > 9.3* < > 8.4* HCT 28.2* 29.2* 28.3* < > 30.8* < > 27.2* PLATELET 315 -- -- -- 353 -- 290 < > = values in this interval not displayed. Recent Labs 09/13/20 0509/12/20221609/12/20 1311 09/12/2014209/11/20 0536 NA 141 -- -- 140 -- 140 K 4.3 4.2 3.9 4.2 < > 3.2* CL 108* -- -- 102 -- 101 CO2 23 -- -- 24 -- 27 BUN 12 -- -- 17 -- 13 CREATININE 0.98 -- -- 1.15 -- 0.90 < > = values in this interval not displayed. Recent Labs 09/13/20 0509/12/2014209/11/20 0536 AST 41* 23 16 ALT 30 21 16 ALKPHOS 110* 120* 123* BILITOT 1.9* 2.7* 2.6* BILIDIR 0.4* 0.3 0.2 Recent Labs 09/13/20 0509/12/20 01409/11/20 0536 CALCIUM 8.8 9.3 9.1 MAGNESIUM 1.04 1.05 0.82 Recent Labs 09/13/20 0509/12/20 01409/11/20 0536 INR 1.1 1.1 1.1 PT 12.8* [...] angina Remain on single antiplatelet I will [place] back with patient/family and team once CT/surgery [...] Sarah Garland - 09/11/2020 7:52 PM EST Receiving Tank Operator Encounter Note Patient Name: Shannan Chaudhary : [id number] MR#: [id number] Admit Date: 09/10/2020 4:42 PM Hospital Day [...] Low Gradient, s/p BAV for now recovered dvaid), 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 Subjective/24h [...] easily palpable Recent Labs 09/11/20 0536 09/10/20 19209/10/20 1442 WBC 7.7 6.4 7.8 HGB 8.4* [...] 0.82 -- Recent Labs 09/11/20 0536 09/10/20 192 INR 1.1 1.2 PT 12.5 13.8* PTT [...] Will f/u FOBT and GI evaluation-plan for EGD/[place] tomorrow. Will also be worked up for [...] given acute anemia -GI to evaluate with EGD/[place] tomorrow. Appreciate recs. ?? Diet: Clear Liquid [...] MD Gastroenterology PGY-6 09/12/2020 1:48 PM Pager #[phone] * Carol Reyna MD - 09/10/2020 10:37 PM EST Images from the original note were not included. 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 may [...] Meds) - GI consult for EGD +/- [place] (Consulted, need to discuss) ENDO #[id number] (A1c [...] Carol Reyna MD PGY2, Cardiology S2, Pager [phone] 09/11/2020 Associated attestation - Abiodun Chun MD [...] follow up appointments with her surgeon and cloth sponger today, who identified her abnormally low hemoglobin [...] components within normal limits RAPID COVID-19 PCR ([facility]/APD/[facility]) TYPE AND SCREEN ([facility]/CGP/[facility]HIK) CBC (WITH DIFF) ABO/RH TYPING ANTIBODY SCREEN [...] Hurtado MD - 09/18/2020 2:08 PM EST [facility] SECTION OF CARDIAC SURGERY OPERATIVE REPORT 09/15/20 ? PATIENT NAME:??Shannan Chaudhary?1940?? MR#:??[id number] ? REFERRING PHYSICIAN:?? Reshma Baig MD [address] [place] [address] ?? PRE-OPERATIVE DIAGNOSIS: Severe aortic stenosis ? POST-OPERATIVE DIAGNOSIS: Same ? PROCEDURE: ?? 1. Implantation of catheter-delivered prosthetic aortic heart valve; percutaneous femoral artery approach (23??mm Bobo SAPIEN3 transcatheter heart valve) ? SURGEON: Pan Hurtado MD ? MUSIC ENGINEER: ?? Esau Rahman M.D. ? ANESTHESIA:? Conscious sedation ? CLINICAL HISTORY:? This is a??80-year-old??woman with aortic stenosis. The patient was evaluated for TAVR and found blane an appropriate candidate and is now taken to the film laboratory technician for transcatheter aortic valve replacement using the [...] performed. The??right??femoral??artery was accessed percutaneously and a 6-Mongolian sheath placed.??Additionally, the??left??common femoral??artery and??left??femoral??vein were accessed percutaneously and 6-Mongolian sheaths placed. ? The patient was systemically heparinized with 100 units per kg of IV heparin to goal ACT greater than 250. A 6-Mongolian pigtail catheter is then passed up from the??left femoral??arterial sheath and positioned in the right coronary sinus. A transvenous pacing lead is then advanced from the left??femoral vein up to the right ventricle. The #6-Mongolian right femoral sheath is then upsized for a 14-Mongolian Bobo E-sheath over a Alina wire. A root angiogram was shot, and the optimal view for visualization of the aortic root was obtained. ? The aortic valve was then crossed using a straight-tip wire and an AL- 2??catheter. The straight wire is exchanged for a long flexible J-tip wire and the AL-2??exchanged for a 6-Mongolian angled pigtail catheter. A stiff wire was positioned in the apex of the LV under NEELY imaging. Care is taken to avoid contact with the ventricular wall with the transition point of the wire to avoid perforation. The C-arm is then changed back to the ideal imaging plane in MALTESE. ? A 23-mm Bobo SAPIEN3 device is [...] catheters are removed over a wire. The #14-Mongolian introducer sheath is removed, and the??right??common femoral arteriotomy closed percutaneously two??ProGlide closure devices. After holding direct pressure for 20 minutes there was no evidence of bleeding from the closure site. ? Protamine is administered. Hemostasis is obtained. ? All sponge, needle, and instrument counts are reported correct at the end of the case. The patient is taken to film laboratory technician recovery in stable condition at the end of procedure. ? and??I??jointly performed the procedure and all of the critical components ?? Attestation: Case Date: 09/15/2020 PAN HURTADO MD 09/23/2020 * Brief Op Note - Pan Hurtado MD - 09/18/2020 2:08 PM EST Brief Operative Note Patient Name: Shannan Chaudhary : [id number] MR#: [id number] Case Date: 09/15/2020 Surgeon: Surgeon(s) and Role: Panel 1: * Esau Rahman MD - Primary * Dago Merchant PA - Physician Radio Officer Panel 2: * Pan Hurtado MD - [...] Outcome (s) achieved Date Met: 09/18/20 09/18/20 1358 Coping/Psychosocial Plan Of Care Reviewed With patient [...] Nieto RN - 09/17/2020 12:28 PM EST [facility] CARDIAC REHABILITATION Shannan Chaudhary was seen today regarding participation in the outpatient Phase 2 Cardiac Rehabilitation at [facility]. The patient agrees to a referral [...] Operative Note Patient Name: Shannan Chaudhary : [id number] MR#: [id number] Case Date: 09/15/2020 Surgeon: Surgeon(s) and Role: [...] Hurtado and Amanda present during case, service cloth sponger Dr Chun, and with the patient and [...] the aortic arch to position across the manchester aortic valve. Rapid ventricular pacing was instituted, [...] DRAINAGE 04/28/2020 CT Guided Drain Peritoneal 04/28/2020 [facility] RAD CAT SCAN ??? HYSTERECTOMY, VAGINAL ??? IR BILIARY TUBE CHECK/CHANGE/REMOVE 06/03/2020 IR Biliary Tube Check/Change/Remove 06/03/2020 Jos Collins, DO [facility] INTERVENTIONL RAD ??? IR CHOLECYSTOSTOMY TUBE PLACEMENT 04/22/2020 IR Cholecystostomy Tube Placement 04/22/2020 Jos Collins, DO [facility] INTERVENTIONL RAD ??? IR DRAIN CHECK/CHANGE/REMOVE 05/19/2020 IR Drain Check/Change/Remove 05/19/2020 Jos Collins, DO [facility] INTERVENTIONL RAD ??? PRO COLONOSCOPY, DIAGNOSTIC N/A 09/12/2020 COLONOSCOPY, DIAGNOSTIC performed by Mane Avila MD at [facility] ENDOSCOPY ??? PRO LAP, CHOLECYSTECTOMY/GRAPH N/A 07/15/2020 LAPAROSCOPIC CHOLECYSTECTOMY WITH CHOLANGIOGRAM (WRVU 11.47) performed by Hong Rosenthal MD at [facility] MAIN OR ??? PRO UPPER GI ENDOSCOPY, BIOPSY N/A 09/12/2020 EGD WITH BIOPSY (WRVU 2.49) performed by Mane Avila MD at [facility] ENDOSCOPY ??? PRO UPPER GI ENDOSCOPY, DIAGNOSTIC N/A 05/03/2020 EGD, UPPER GI ENDOSCOPY performed by Brigitte Graf MD at [facility] ENDOSCOPY Social History: Social History Tobacco Use ??? Smoking status: Never Smoker ??? Smokeless tobacco: Never Used Substance Use Topics ??? Alcohol use: Not Currently Comment: occassional ??? Drug use: Never Social History Social History Narrative ??? Not on file Caodaism - denies Family History: History reviewed. No [...] Avila MD - 09/12/2020 10:40 PM EST [facility] Operative Note Patient Name: Shannan Chaudhary : [id number] MR#: [id number] Case Date: 09/12/2020 Surgeon: Surgeon(s) and Role: [...] EST Office of Care Management Initial Assessment Manager Regional Sales DAMARIS AVILA RN reviewed record and discussed [...] for doing Advance Directives. Provided copy(ies) of [place] [employer] Advance Directives Taking Steps booklet [...] adult children supportive(2 in [place], 1 in [place])as well as adult grandchildren Behavioral Health History: none noted Substance Use/Abuse: Per H+P never smoked and not using ETOH, no use of illicits Other Pertinent/Service Specific Information: none Health/Prescription Coverage: Primary Insurance: [email or web address] [place] Secondary Insurance: MEDICARE Prescription Coverage: [employer] w BCBS or ? Medicare D Preferred Pharmacy: not addressed Other: food and housing secure Primary Care Provider: Reshma Baig MD [phone] Patient/Caregiver Goals of Treatment: feel better, figure this out Potential Needs for Transition of Care: Rehab/SNF: NA Home Health: will discuss; agencies serving her town are [facility]; not anticipated DME: none Dialysis: NA Community [...] and assist with transition of care planning. Manager Regional Sales DAMARIS AVILA RN Pager: [phone] * Consult Note - Mane Avila MD [...] Sitting Pulse: [phone] Resp: Temp: 36.8 ??C (98.2 ??F) 36.6 ??C [...] clear liquids only and then NPO at NC - Colonoscopy prep with 238 g miralax mixed into 64 oz of gatorade - Active T&S, maintain 2 large bore IVs - Trend H/H, maintain Hgb >8 - Continue PPI BID The plan as outlined above was discussed with Dr. Avila. The recommendations were discussed with the primary team. Asha Powell MD Gastroenterology PGY-6 09/11/2020 11:34 AM Pager #[phone] I have seen and evaluated the patient with Dr. Powell. I have reviewed the fellow's history during the encounter and I agree with the details as written above. My physical examination confirms the above findings. The assessment and plan were formulated in discussion with me at the time of the encounter and I agree with them as documented. Mane Avila MD, MS nursery manager Manager Secondary, Gastroenterology and Hepatology * Plan of Care [...] Routine 09/12/2020 2:04 PM EST Colonoscopy, Diagnostic (00448) 09/12/2020 1:32 PM EST upper endo/colo Upper Gi Endoscopy, Biopsy ([id number]) 09/12/2020 1:32 PM EST upper endo/colo HC [...] 09/10/2020 10:40 PM EST RAPID COVID-19 PCR ([facility]/APD/[facility]) STAT 09/10/2020 9:44 PM EST PREPARE RBC [...] (Bezet) 521 ms MUSE SYSTEM Calculated P [place] 23 degrees MUSE SYSTEM Calculated R [place] -33 degrees MUSE SYSTEM Calculated T [place] 11 degrees MUSE SYSTEM INTERPRETATION Normal sinus [...] * ECHO COMPLETE (10/18/2020 1:51 PM EST) Pathologist [facility] EF 65 HEARTLAB SYSTEM Anatomical Region Laterality Modality Other 10/18/2020 Narrative 10/18/2020 2:36 PM EST Amended Report Procedure: ?Transthoracic Echocardiogram Patient: ?HEIDY ASHER A ? (Age): 1940(80y) Med Rec#: ? [id number] ?Sex: ?F ? Site Loc: ? [facility] ?Ht / Wt: ??158(cm)/79(kg) Pt. Loc: ?Echo Lab ?BSA: ?1.81 Study Date: ?? 10/18/2020 ?Pt. Type: Outpatient Tape: ? Referring: Pan Hurtado Reading: Fang Law ([id number]) Transmission System Operator: Wilfredo Santiago RDCS Diagnosis: *Presence of prosthetic [...] Vmax ?1.19 ? m/sec ? MV deceleration fqpr074.35 ? msec ? MV A-wave Vmax ?1.68 [...] ? Mid-Inferior ?Normal ? Mid-Inferoseptal ?Normal ? [place]-Septal ? Normal ? [place]-Anterior ? Normal ? [place]-Lateral ?Normal ? [place]-Inferior ? Normal ? [place]-Tip ?Normal ? This report has been electronically signed by: Fang Law MD ? 10/18/2020 14:41:12 Images reviewed and interpretation verified [facility] Cardiac Ultrasound Laboratory Procedure Note Fang Law MD - 10/18/2020 Amended Report Procedure: Transthoracic Echocardiogram Patient: HEIDY ANDERSON(Age): 1940(80y) Med Rec#: [id number] Sex: F Site Loc: [facility] Ht / Wt: 158(cm)/79(kg) Pt. Loc: Echo Lab BSA: 1.81 Study Date: 10/18/2020 Pt. Type: Outpatient Tape: Referring: Pan Hurtado Reading: Fang Law ([id number]) Transmission System Operator: Wilfredo Santiago [facility] Diagnosis: *Presence of prosthetic heart [...] MV E-wave Vmax 1.19 m/sec MV deceleration pfrd340.35 msec MV A-wave Vmax 1.68 m/sec MV [...] Normal Mid-Posterolateral Normal Mid-Inferior Normal Mid-Inferoseptal Normal [place]-Septal Normal [place]-Anterior Normal [place]-Lateral Normal [place]-Inferior Normal [place]-Tip Normal This report has been electronically signed by: Fang Law MD 10/18/2020 14:41:12 Images reviewed and interpretation verified [facility] Cardiac Ultrasound Laboratory Pan Hurtado MD ECHO ORDERABLES * (ABNORMAL) Comprehensive metabolic panel (non-fasting) (10/18/2020 11:52 AM EST) Glucose Lvl 302(H) 65 - 199 mg/dL [facility] Comment:Diabetes: >=200 mg/d L plus symptoms BUN 18 8 - 18 mg/dL [facility] Creatinine 0.92 0.70 - 1.20 mg/dL [facility] Sodium 139 135 - 145 mmol/L [facility] Potassium 4.5 3.5 - 5.0 mmol/L [facility] Comment: Please note: ??Patients with WBC >100,000 may have falsely elevated Potassium levels. ??For accurate Potassium quantification in these patients send serum separator tube (gold top) for subsequent determinations. ??Contact the Clinical Chemistry Laboratory if there are any questions. Chloride 104 98 - 107 mmol/L [facility] CO2 23 22 - 31 mmol/L [facility] Anion Gap 12 5 - 15 mmol/L [facility] Calcium 9.3 8.5 - 10.5 mg/dL [facility] Total Protein 6.9 6.1 - 8.0 gm/dL [facility] Albumin 4.5 3.2 - 5.2 gm/dL [facility] AST 36(H) 0 - 30 unit/L [facility] ALT 44(H) 0 - 30 unit/L [facility] Alk Phos 125(H) 35 - 105 unit/L [facility] Total Bilirubin 0.7 0.2 - 1.3 mg/dL [facility] Estimated GFR 59(L) >=60 mL/min/1. 73 m?? [facility] [...] Lab Pan Hurtado MD CHEMISTRY ORDERABL ES [facility] [place] [address] * (ABNORMAL) POCT Glucose (09/18/2020 12:21 PM EST) POC Glucose 235(H) 65 - 199 mg/dL [facility] Comment: Supplemental ranges: <140 mg/dL before meals <180 mg/dL all other times of the day Blood specimen (specimen) 09/18/2020 12:21 PM EST 09/18/2020 12:21 PM EST Pan Hurtado MD POINT OF CARE TEST ORDERABLES [facility] [place] [address] * (ABNORMAL) POCT Glucose (09/18/2020 7:49 AM EST) [facility] POC Glucose 207(H) 65 - 199 mg/dL [facility] Comment: Supplemental ranges: <140 mg/dL before meals <180 mg/dL all other times of the day Blood specimen (specimen) 09/18/2020 7:49 AM EST 09/18/2020 7:49 AM EST Pan Hurtado MD POINT OF CARE TEST ORDERABLES Performing Organization Address City/[facility]/ZIP Co de Phone Number [facility] [place] [address] * (ABNORMAL) Hemogram (09/18/2020 5:35 AM EST) [facility] WBC 7.1 4.0 - 9.5 x10(3)/[facility] LABORATORY RBC 3.47(L) 4.00 - 5.21 x10(6)/[facility] LABORATORY Hemoglobin 8.2(L) 11.7 - 15.5 gm/dL [facility] Hematocrit 27.2(L) 35.7 - 45.8 % [facility] MCV 78.4(L) 82.6 - 94.4 fL [facility] MCH 23.6(L) 27.1 - 32.0 pg [facility] MCHC 30.1(L) 31.7 - 35.0 gm/dL [facility] Platelets 152 145 - 357 x10(3)/[facility] RDWSD 71.8(H) 37.0 - 46.0 [facility] LABORATORY RDWCV 26.5(H) 11.5 - 14.1 % [facility] MPV 10.7 7.6 - 12.9 [facility] LABORATORY nRBC % Auto 0.0 % [facility] nRBC Abs Auto 0.000 0.000 - 0.000 x10(3)/mcL [facility] Blood specimen (specimen) 09/18/2020 5:35 AM EST 09/18/2020 5:47 AM EST Narrative Resulting Agency Comment Spec In Lab Pan Hurtado MD HEMATOLOGY ORDERAB LES Performing Organization Address City/[facility]/ZIP Co de Phone Number [facility] [place] [address] * POCT Glucose (09/18/2020 4:00 AM EST) POC Glucose 148 65 - 199 mg/dL [facility] Comment: Supplemental ranges: <140 mg/dL before meals <180 mg/dL all other times of the day Blood specimen (specimen) 09/18/2020 4:00 AM EST 09/18/2020 4:00 AM EST Pan Hurtado MD POINT OF CARE TEST ORDERABLES Performing Organization Address [facility] Co de Phone Number [facility] [place] [address] * (ABNORMAL) POCT Glucose (09/18/2020 12:55 AM EST) POC Glucose 207(H) 65 - 199 mg/dL [facility] Comment: Supplemental ranges: <140 mg/dL before meals <180 mg/dL all other times of the day Blood specimen (specimen) 09/18/2020 12:55 AM EST 09/18/2020 12:55 AM EST Pan Hurtado MD POINT OF CARE TEST ORDERABLES Performing Organization Address City/[facility] Co de Phone Number [facility] [place] [address] * (ABNORMAL) POCT Glucose (09/17/2020 7:42 PM EST) POC Glucose 217(H) 65 - 199 mg/dL [facility] Comment: Supplemental ranges: <140 mg/dL before meals <180 mg/dL all other times of the day Blood specimen (specimen) 09/17/2020 7:42 PM EST 09/17/2020 7:42 PM EST Pan Hurtado MD POINT OF CARE TEST ORDERABLES Performing Organization Address City/[facility]/ZIP Co de Phone Number [facility] [place] [address] * POCT Glucose (09/17/2020 4:17 PM EST) POC Glucose 165 65 - 199 mg/dL [facility] Comment: Supplemental ranges: <140 mg/dL before meals <180 mg/dL all other times of the day Blood specimen (specimen) 09/17/2020 4:17 PM EST 09/17/2020 4:17 PM EST Pan Hurtado MD POINT OF CARE TEST ORDERABLES Performing Organization Address [facility] Co de Phone Number [facility] [place] [address] * POCT Glucose (09/17/2020 3:00 PM EST) POC Glucose 178 65 - 199 mg/dL [facility] Comment: Supplemental ranges: <140 mg/dL before meals <180 mg/dL all other times of the day Blood specimen (specimen) 09/17/2020 3:00 PM EST 09/17/2020 3:00 PM EST Pan Hurtado MD POINT OF CARE TEST ORDERABLES Performing Organization Address City/[facility] Co de Phone Number [facility] [place] [address] * (ABNORMAL) POCT Glucose (09/17/2020 11:28 AM EST) POC Glucose 251(H) 65 - 199 mg/dL [facility] Comment: Supplemental ranges: <140 mg/dL before meals <180 mg/dL all other times of the day Blood specimen (specimen) 09/17/2020 11:28 AM EST 09/17/2020 11:28 AM EST Pan Hurtado MD POINT OF CARE TEST ORDERABLES [facility] [place] [address] * EKG 12 Lead (09/17/2020 9:03 AM EST) Ventricular rate 89 BPM MUSE SYSTEM Atrial Rate 89 BPM MUSE SYSTEM P-R Interval 160 ms MUSE SYSTEM QRS Duration 134 ms MUSE SYSTEM Q-T Interval 448 ms MUSE SYSTEM QTC Calculated (Bezet) 545 ms MUSE SYSTEM Calculated P [place] 36 degrees MUSE SYSTEM Calculated R [place] -41 degrees MUSE SYSTEM Calculated T [place] -3 degrees MUSE SYSTEM INTERPRETATION Normal sinus rhythm Left atrial enlargement Left axis deviation Right bundle branch block Abnormal ECG When compared with ECG of 16-SEP-2020 08:57, QRS axis Shifted left Confirmed by MD Amelie, Eusebio Shelton ([id number]) on 09/17/2020 12:57:01 PM MUSE SYSTEM 09/17/2020 9:03 AM EST 09/17/2020 12:57 PM EST Almaz Carias APRN ECG ORDERABLES Performing Organization Address City/[facility]/ZIP Co de Phone Number MUSE SYSTEM * POCT Glucose (09/17/2020 7:39 AM EST) Pathologist [facility] POC Glucose 151 65 - 199 mg/dL [facility] Comment: Supplemental ranges: <140 mg/dL before meals <180 mg/dL all other times of the day Blood specimen (specimen) 09/17/2020 7:39 AM EST 09/17/2020 7:39 AM EST Pan Hurtado MD POINT OF CARE TEST ORDERABLES [facility] [place] [address] * (ABNORMAL) Differential, Automated (09/17/2020 5:29 AM EST) Neutrophils % 77.9 % [facility] Neutr Abs (ANC) 7.13(H) 1.70 - 6.10 x10(3)/[facility] LABORATORY Lymphocytes % 10.2 % [facility] Lymphocytes Abs 0.9 0.9 - 3.2 x10(3)/[facility] Monocytes % 7.4 % [facility] Monocyte Abs 0.7 0.3 - 0.9 x10(3)/[facility] Eosinophils % 3.5 % [facility] Eosinophils Abs 0.3 0.0 - 0.4 x10(3)/[facility] Basophils % 0.5 % [facility] Basophils Abs 0.0 0.0 - 0.1 x10(3)/[facility] LABORATORY Immature Gran % 0.50 % [facility] Comment: Immature granulocytes(IG's)percentage and absolute count will include metamyelocytes, myelocytes, and promyelocytes. Blood smears from CBCs yielding IG's will be scanned manually for concordance. If this scan disagrees with the automated IG or if promyelocytes are noted, a manual differential will be performed. Nanci Gran Abs 0.05(H) 0.00 - 0.04 x10(3)/[facility] Blood specimen (specimen) 09/17/2020 5:29 AM EST 09/17/2020 5:41 AM EST Narrative Resulting Agency Comment Spec In Lab Almaz Carias APRN HEMATOLOGY ORDERAB LES [facility] [place] [address] * (ABNORMAL) Hemogram (09/17/2020 5:29 AM EST) WBC 9.2 4.0 - 9.5 x10(3)/[facility] LABORATORY RBC 3.78(L) 4.00 - 5.21 x10(6)/[facility] LABORATORY Hemoglobin 8.7(L) 11.7 - 15.5 gm/dL [facility] Hematocrit 28.8(L) 35.7 - 45.8 % [facility] MCV 76.2(L) 82.6 - 94.4 fL [facility] MCH 23.0(L) 27.1 - 32.0 pg [facility] MCHC 30.2(L) 31.7 - 35.0 gm/dL [facility] Platelets 161 145 - 357 x10(3)/[facility] LABORATORY RDWSD 67.0(H) 37.0 - 46.0 fL [facility] RDWCV 26.0(H) 11.5 - 14.1 % [facility] MPV 9.9 7.6 - 12.9 [facility] LABORATORY nRBC % Auto 0.0 % [facility] nRBC Abs Auto 0.000 0.000 - 0.000 x10(3)/[facility] LABORATORY Blood specimen (specimen) 09/17/2020 5:29 AM EST 09/17/2020 5:41 AM EST Narrative Resulting Agency Comment Spec In Lab Almaz Cascade MEDICAL PHYSICS PROFESSOR HEMATOLOGY ORDERAB LES [facility] [place] [address] * (ABNORMAL) Basic Metabolic Panel (non-fasting) (09/17/2020 5:29 AM EST) Glucose Lvl 146 65 - 199 mg/dL [facility] Comment:Diabetes: >=200 mg/d L plus symptoms BUN 15 8 - 18 mg/dL [facility] Creatinine 0.93 0.70 - 1.20 mg/dL [facility] Sodium 139 135 - 145 mmol/L [facility] Potassium 3.9 3.5 - 5.0 mmol/L [facility] Comment: Please note: ??Patients with WBC >100,000 may have falsely elevated Potassium levels. ??For accurate Potassium quantification in these patients send serum separator tube (gold top) for subsequent determinations. ??Contact the Clinical Chemistry Laboratory if there are any questions. Chloride 108(H) 98 - 107 mmol/L [facility] CO2 21(L) 22 - 31 mmol/L [facility] Anion Gap 10 5 - 15 mmol/L [facility] Calcium 8.3(L) 8.5 - 10.5 mg/dL [facility] Estimated GFR 58(L) >=60 mL/min/1. 73 m?? [facility] [...] Agency Comment Spec In Lab Almaz Carias MEDICAL PHYSICS PROFESSOR CHEMISTRY ORDERABL ES [facility] [place] [address] * (ABNORMAL) Troponin (09/17/2020 5:29 AM EST) Troponin-T 0.02(H) 0.00 - 0.00 ng/mL [facility] Comment: The 99th percentile for Troponin T is less than 0.01 ng/mL, any detectable cTnT concentration using this assay should be considered elevated. According to the third universal definition of myocardial infarction the following criteria with a clinical presentation consistent with acute myocardial ischemia meets the diagnosis for a myocardial infarction ([place]). Detection of a rise and/or fall of cTnT, with at least one value greater than the 99th percentile (> or = 0.01) and with at least one of the following ?? Symptoms of ischemia ?? New or presumed new significant VR-rbrzdht-J wave (ST-T) changes or new left bundle [...] additional sample may be indicated. Reference: Third Butler Definition of Myocardial Infarction. Journal of the [place] [employer] 2012;60:1581-98 Blood specimen (specimen) 09/17/2020 5:29 AM EST 09/17/2020 5:41 AM EST Narrative Resulting Agency Comment Spec In Lab Almaz Carias APRN CHEMISTRY ORDERABL ES Performing Organization Address City/[facility]/ZIP Co de Phone Number [facility] [place] [address] * POCT Glucose (09/17/2020 3:28 AM EST) Pathologist [facility] POC Glucose 150 65 - 199 mg/dL [facility] Comment: Supplemental ranges: <140 mg/dL before meals <180 mg/dL all other times of the day Blood specimen (specimen) 09/17/2020 3:28 AM EST 09/17/2020 3:28 AM EST Pan Hurtado MD POINT OF CARE TEST ORDERABLES [facility] [place] [address] * POCT Glucose (09/17/2020 12:02 AM EST) POC Glucose 159 65 - 199 mg/dL [facility] Comment: Supplemental ranges: <140 mg/dL before meals <180 mg/dL all other times of the day Blood specimen (specimen) 09/17/2020 12:02 AM EST 09/17/2020 12:02 AM EST Pan Hurtado MD POINT OF CARE TEST ORDERABLES [facility] [place] [address] * POCT Glucose (09/16/2020 8:47 PM EST) POC Glucose 190 65 - 199 mg/dL [facility] Comment: Supplemental ranges: <140 mg/dL before meals <180 mg/dL all other times of the day Blood specimen (specimen) 09/16/2020 8:47 PM EST 09/16/2020 8:47 PM EST Pan Hurtado MD POINT OF CARE TEST ORDERABLES [facility] [place] [address] * POCT Glucose (09/16/2020 4:00 PM EST) POC Glucose 186 65 - 199 mg/dL [facility] Comment: Supplemental ranges: <140 mg/dL before meals <180 mg/dL all other times of the day Blood specimen (specimen) 09/16/2020 4:00 PM EST 09/16/2020 4:00 PM EST Pan Hurtado MD POINT OF CARE TEST ORDERABLES [facility] [place] [address] * POCT Glucose (09/16/2020 2:11 PM EST) POC Glucose 181 65 - 199 mg/dL [facility] Comment: Supplemental ranges: <140 mg/dL before meals <180 mg/dL all other times of the day Blood specimen (specimen) 09/16/2020 2:11 PM EST 09/16/2020 2:11 PM EST Pan Hurtado MD POINT OF CARE TEST ORDERABLES [facility] [place] [address] * XR Chest PA & Lateral (Generic) [...] ? Electronically signed by: Mayte Pollack MD, [facility] ([phone]), at 09/16/2020 2:29 PM Narrative 09/16/2020 2:29 [...] contact the number below. Electronically signed by: Mayte Pollack MD, [facility]([phone]), at 09/16/2020 2:29 PM Almaz Carias APRN IMG DX ORDERABLES * (ABNORMAL) POCT Glucose (09/16/2020 11:51 AM EST) Pathologist [facility] POC Glucose 247(H) 65 - 199 mg/dL [facility] Comment: Supplemental ranges: <140 mg/dL before meals <180 mg/dL all other times of the day Blood specimen (specimen) 09/16/2020 11:51 AM EST 09/16/2020 11:51 AM EST Pan Hurtado MD POINT OF CARE TEST ORDERABLES [facility] [place] [address] * EKG 12 Lead (09/16/2020 8:57 AM EST) Pathologist [facility] Ventricular rate 66 BPM MUSE SYSTEM Atrial Rate 66 BPM MUSE SYSTEM P-R Interval 174 ms MUSE SYSTEM QRS Duration 132 ms MUSE SYSTEM Q-T Interval 502 ms MUSE SYSTEM QTC Calculated (Bezet) 526 ms MUSE SYSTEM Calculated P [place] 32 degrees MUSE SYSTEM Calculated R [place] -17 degrees MUSE SYSTEM Calculated T [place] -54 degrees MUSE SYSTEM INTERPRETATION Normal sinus rhythm Right bundle branch block Abnormal ECG When compared with ECG of 16-SEP-2020 05:52, (unconfirmed) No significant change was found Confirmed by MD Ramos Daniel ([id number]) on 09/16/2020 11:26:44 PM MUSE SYSTEM 09/16/2020 8:57 AM EST 09/16/2020 11:26 PM EST Pan Hurtado MD ECG ORDERABLES MUSE SYSTEM * POCT Glucose (09/16/2020 8:20 AM EST) POC Glucose 119 65 - 199 mg/dL [facility] Comment: Supplemental ranges: <140 mg/dL before meals <180 mg/dL all other times of the day Blood specimen (specimen) 09/16/2020 8:20 AM EST 09/16/2020 8:20 AM EST Pan Hurtado MD POINT OF CARE TEST ORDERABLES Performing Organization Address [facility] Co de Phone Number [facility] [place] [address] * EKG 12 Lead (09/16/2020 5:52 AM EST) Ventricular rate 66 BPM MUSE SYSTEM Atrial Rate 66 BPM MUSE SYSTEM P-R Interval 164 ms MUSE SYSTEM QRS Duration 130 ms MUSE SYSTEM Q-T Interval 496 ms MUSE SYSTEM QTC Calculated (Bezet) 519 ms MUSE SYSTEM Calculated P [place] 34 degrees MUSE SYSTEM Calculated R [place] -17 degrees MUSE SYSTEM Calculated T [place] -16 degrees MUSE SYSTEM INTERPRETATION Normal sinus rhythm Right bundle branch block Abnormal ECG When compared with ECG of 15-SEP-2020 15:18, (unconfirmed) No significant change was found I personally reviewed the tracing and edited the fellows interpretation Confirmed by fellow Anam Cazares ([id number]) on 09/16/2020 4:52:54 PM Confirmed by MD Amelie, Eusebio Shelton ([id number]) on 09/16/2020 7:19:19 PM MUSE SYSTEM 09/16/2020 5:52 AM EST 09/16/2020 7:19 PM EST Pan Hurtado MD ECG ORDERABLES MUSE SYSTEM * POCT Glucose (09/16/2020 4:07 AM EST) POC Glucose 132 65 - 199 mg/dL [facility] Comment: Supplemental ranges: <140 mg/dL before meals <180 mg/dL all other times of the day Blood specimen (specimen) 09/16/2020 4:07 AM EST 09/16/2020 4:07 AM EST Pan Hurtado MD POINT OF CARE TEST ORDERABLES [facility] [place] [address] * (ABNORMAL) Differential, Automated (09/16/2020 2:20 AM EST) Pathologist [facility] Neutrophils % 88.7 % [facility] Neutr Abs (ANC) 15.05(H) 1.70 - 6.10 x10(3)/ L [facility] Lymphocytes % 4.5 % [facility] Lymphocytes Abs 0.8(L) 0.9 - 3.2 x10(3)/[facility] Monocytes % 5.3 % [facility] Monocyte Abs 0.9 0.3 - 0.9 x10(3)/[facility] Eosinophils % 0.5 % [facility] Eosinophils Abs 0.1 0.0 - 0.4 x10(3)/[facility] Basophils % 0.4 % [facility] Basophils Abs 0.1 0.0 - 0.1 x10(3)/[facility] Immature Gran % 0.60 % [facility] Comment: Immature granulocytes(IG's)percentage and absolute count will include metamyelocytes, myelocytes, and promyelocytes. Blood smears from CBCs yielding IG's will be scanned manually for concordance. If this scan disagrees with the automated IG or if promyelocytes are noted, a manual differential will be performed. Nanci Gran Abs 0.10(H) 0.00 - 0.04 x10(3)/ L [facility] Blood specimen (specimen) 09/16/2020 2:20 AM EST 09/16/2020 2:30 AM EST Narrative Resulting Agency Comment Spec In Lab Carol Reyna MD HEMATOLOGY ORDERABLES Performing Organization Address City/State/[facility] Co de Phone Number [facility] [place] [address] * (ABNORMAL) Hemogram (09/16/2020 2:20 AM EST) WBC 17.0(H) 4.0 - 9.5 x10(3)/[facility] LAB[facility]AT[facility] RBC 4.26 4.00 - 5.21 x10(6)/[facility] Hemoglobin 9.9(L) 11.7 - 15.5 gm/dL [facility] Hematocrit 31.6(L) 35.7 - 45.8 % [facility] MCV 74.2(L) 82.6 - 94.4 [facility] MCH 23.2(L) 27.1 - 32.0 pg [facility] MCHC 31.3(L) 31.7 - 35.0 gm/dL [facility] Platelets 247 145 - 357 x10(3)/[facility] LAB[facility]ATORY RDWSD 61.8(H) 37.0 - 46.0 [facility] RDWCV 24.9(H) 11.5 - 14.1 % [facility] MPV 9.9 7.6 - 12.9 [facility] nRBC % Auto 0.1 % [facility] nRBC Abs Auto 0.020(H) 0.000 - 0.000 x10(3)/[facility] Blood specimen (specimen) 09/16/2020 2:20 AM EST 09/16/2020 2:30 AM EST Narrative Resulting Agency Comment Spec In Lab Carol Reyna MD HEMATOLOGY ORDERABLES Performing Organization Address [facility] Co de Phone Number [facility] [place] [address] * Magnesium (09/16/2020 2:20 AM EST) Magnesium 0.80 0.69 - 1.07 mmol/L [facility] Blood specimen (specimen) 09/16/2020 2:20 AM EST 09/16/2020 2:30 AM EST Narrative Resulting Agency Comment Spec In Lab Amarilys Cerna MD CHEMISTRY ORDERABLES Performing Organization Address [facility] de Phone Number [facility] [place] [address] * (ABNORMAL) BMP w/fasting Glucose (09/16/2020 2:20 AM EST) Glucose Fasting 136(H) 65 - 99 mg/dL [facility] Comment: ?Fasting* Glucose Interpretive Criteria [...] of Diabetes Mellitus, Position Statement from the [place] [employer]. ??Diabetes Care, Volume 33, Supplement 1, Aug 2009 BUN 18 8 - 18 mg/dL [facility] Creatinine 0.99 0.70 - 1.20 mg/dL [facility] Sodium 137 135 - 145 mmol/L [facility] Potassium 4.0 3.5 - 5.0 mmol/L [facility] Comment: Please note: ??Patients with WBC >100,000 may have falsely elevated Potassium levels. ??For accurate Potassium quantification in these patients send serum separator tube (gold top) for subsequent determinations. ??Contact the Clinical Chemistry Laboratory if there are any questions. Chloride 107 98 - 107 mmol/L [facility] CO2 22 22 - 31 mmol/L [facility] Anion Gap 8 5 - 15 mmol/L [facility] Calcium 8.3(L) 8.5 - 10.5 mg/dL [facility] Estimated GFR 54(L) >=60 mL/min/1. 73 m?? [facility] [...] In Lab Amarilys Cerna MD CHEMISTRY ORDERABLES [facility] [place] [address] * APTT (09/16/2020 2:20 AM EST) PTT 28 25 - 37 sec [facility] Comment: The PTT is NOT appropriate for heparin monitoring. Use the Anti-Xa level for heparin monitoring (HEP UFH) or LMWH monitoring (HEP LMW). A PTT less than 37 seconds generally indicates adequate hemostasis. Blood specimen (specimen) 09/16/2020 2:20 AM EST 09/16/2020 2:30 AM EST Narrative Resulting Agency Comment Spec In Lab Amarilys Cerna MD HEMATOLOGY ORDERABLE S [facility] [place] [address] * (ABNORMAL) Prothrombin Time (09/16/2020 2:20 AM EST) PT 13.3(H) 9.4 - 12.5 sec [facility] INR 1.2 [facility] Comment: An INR <2.0 [...] MD HEMATOLOGY ORDERABLE S Performing Organization Address [facility]/ZIP Co de Phone Number [facility] [place] [address] * POCT Glucose (09/15/2020 11:15 PM EST) POC Glucose 146 65 - 199 mg/dL [facility] Comment: Supplemental ranges: <140 mg/dL before meals <180 mg/dL all other times of the day Blood specimen (specimen) 09/15/2020 11:15 PM EST 09/15/2020 11:15 PM EST Pan Hurtado MD POINT OF CARE TEST ORDERABLES [facility] [place] [address] * (ABNORMAL) POCT Glucose (09/15/2020 7:59 PM EST) POC Glucose 200(H) 65 - 199 mg/dL [facility] Comment: Supplemental ranges: <140 mg/dL before meals <180 mg/dL all other times of the day Blood specimen (specimen) 09/15/2020 7:59 PM EST 09/15/2020 7:59 PM EST Pan Hurtado MD POINT OF CARE TEST ORDERABLES Performing Organization Address City/State/[facility] Co de Phone Number [facility] [place] [address] * (ABNORMAL) Hemogram (09/15/2020 3:40 PM EST) WBC 8.6 4.0 - 9.5 x10(3)/[facility] LABORATORY RBC 4.46 4.00 - 5.21 x10(6)/[facility] Hemoglobin 10.1(L) 11.7 - 15.5 gm/dL [facility] Hematocrit 33.9(L) 35.7 - 45.8 % [facility] MCV 76.0(L) 82.6 - 94.4 fL [facility] MCH 22.6(L) 27.1 - 32.0 pg [facility] MCHC 29.8(L) 31.7 - 35.0 gm/dL [facility] Platelets 194 145 - 357 x10(3)/[facility] LABORATORY RDWSD 64.4(H) 37.0 - 46.0 [facility] LABORATORY RDWCV 25.1(H) 11.5 - 14.1 % [facility] MPV 10.4 7.6 - 12.9 [facility] LABORATORY nRBC % Auto 0.7 % [facility] nRBC Abs Auto 0.060(H) 0.000 - 0.000 x10(3)/[facility] LAB[facility]ORY Blood specimen (specimen) 09/15/2020 3:40 PM EST 09/15/2020 4:21 PM EST Narrative Resulting Agency Comment Spec In Lab Abiodun Chun MD HEMATOLOGY ORDERABLE S Performing Organization Address [facility] de Phone Number [facility] [place] [address] * POCT Glucose (09/15/2020 3:28 PM EST) POC Glucose 180 65 - 199 mg/dL [facility] Comment: Supplemental ranges: <140 mg/dL before meals <180 mg/dL all other times of the day Blood specimen (specimen) 09/15/2020 3:28 PM EST 09/15/2020 3:28 PM EST Pan Hurtado MD POINT OF CARE TEST ORDERABLES Performing Organization Address [facility] de Phone Number [facility] [place] [address] * ECHO COMPLETE (09/15/2020 3:24 PM EST) EF 70 HEARTLAB SYSTEM Anatomical Region Laterality Modality Other 09/15/2020 Narrative 09/16/2020 8:00 AM EST Procedure: ?Transthoracic Echocardiogram Patient: ?HEIDY ASHER A ? (Age): 1940(80y) Med Rec#: ? [id number] ?Sex: ?F ? Site Loc: ? [facility] ?Ht / Wt: ??158(cm)/78(kg) Pt. Loc: ?Graphic Design Teacher ?BSA: ?1.8 Study Date: ?? 09/15/2020 ?Pt. Type: Inpatient Tape: ? Referring: Esau Rahman Reading: Jos Wheeler ([id number]) Transmission System Operator: Danie Huff Diagnosis: *Nonrheumatic aortic (valve) stenosis [...] 09/16/2020 Procedure: Transthoracic Echocardiogram Patient: HEIDY Francis DOB(Age): 1940(80y) Med Rec#: [id number] Sex: F Site Loc: [facility] Ht / Wt: 158(cm)/78(kg) Pt. Loc: Graphic Design Teacher BSA: 1.8 Study Date: 09/15/2020 Pt. Type: Inpatient Tape: Referring: Esau Rahman Reading: Jos Wheeler ([id number]) Transmission System Operator: Danie Huff Diagnosis: *Nonrheumatic aortic (valve) stenosis [...] (Bezet) 546 ms MUSE SYSTEM Calculated P [place] 50 degrees MUSE SYSTEM Calculated R [place] 94 degrees MUSE SYSTEM Calculated T [place] -21 degrees MUSE SYSTEM INTERPRETATION Normal sinus rhythm Right bundle branch block T wave abnormality, consider inferior ischemia Abnormal ECG When compared with ECG of 10-SEP-2020 13:18, Nonspecific T wave abnormality no longer evident in Anterolateral leads QT has lengthened Confirmed by MD Richard, Alvin ([id number]) on 09/16/2020 11:17:42 PM MUSE SYSTEM 09/15/2020 3:18 PM EST 09/16/2020 11:17 PM EST Abiodun Chun MD ECG ORDERABLES MUSE SYSTEM * CARDIAC CATHETERIZATION (09/15/2020 3:15 PM EST) Anatomical Region Laterality Modality Other Narrative 09/16/2020 6:34 PM EST ?[facility] ? Cardiac Catheterization/Intervention Report ? Patient Name: HEIDY, SHANNAN A. ? Procedure Date: 09/15/2020 ? A #: [id number] ? Primary Physician: Coylewrstar, Esau J ? Case #: [id number] ? File Name: [id number] ? Catheterization Order Number: [id number] ? [facility] ? Final Report [place], [place] ? Patient Name: ? SHANNAN A. HEIDY ? ID#: ?[id number] ? : ?1940 ? Procedure Date: ? September 15, 2020 ? Case #: ? [id number] ? Room: ? 6 ? Case Physicians: ?Esau Rahman M.D. ?Start: ?13:45 ?Pan Hurtado M.D. ? Admission: ??09/10/2020 ? Discharge: ??09/18/2020 ? Referring Physician: ??Reshma Baig M.D. ? Procedures: ?* Left Heart Catheterization ?* Aortic Root Aortogram ?* Transcatheter Aortic Valve Replacement ?* Temporary Pacemaker Insertion In Graphic Design Teacher ?* Arterial Line / Sheath Insert ?* [...] Bobo Jemma 3 Ultra 23 mm THV (s/s=[id number]) transcatheter valve was ?inserted using standard technique. [...] dose administered prior to arrival in the film laboratory technician. ?Recommended anti-platelet/anti-thrombotic regimen: ?Continue clopidogrel 75 mg daily for 3 months then stop. ?Custom Protocol: After plavix is stopped, restart asa 81 mg daily. ?These recommendations are made at the time of the intervention. Patient ?and provider preferences or a changing clinical situation may require ?modification of this regimen. Consult [facility] Interventional Cardiology for ?questions. ? Conclusions: ?* [...] the aortic arch ?to position across the [place] aortic valve. Rapid ventricular pacing was ?instituted, [...] catheterization, ?aortic root aortogram, temporary pacemaker in film laboratory technician, arterial line / ?sheath insert, venous line / sheath insert, transesophageal echo during ?cath, ABG, TAVR, access site angiography and vascular ultrasound. ?Pan Hurtado M.D. performed the left heart catheterization, aortic ?root aortogram, temporary pacemaker in film laboratory technician, arterial line / sheath ?insert, venous line / sheath insert, transesophageal echo during cath, ABG ?and TAVR. ? Esau J Coylewright, ? M.D. ? Electronically Signed by: Esau J Coylewright, M.D. ? Report Finalized: 09/16/2020 ??18:29 ? Report Last Ammended: 10/08/2020 ??11:00 ? Procedure Note Esau Rahman MD - 10/08/2020 [facility] Cardiac Catheterization/Intervention Report Patient Name: SHANNAN CHAUDHARY Procedure Date: 09/15/2020 A #: [id number] Primary Physician: Esau Rahman Case #: [id number] File Name: [id number] Catheterization Order Number: [id number] [facility] FinalReport [place], [place] Patient Name: SHANNAN SHIC ID#:[id number] :1940 Procedure Date: September 15, 2020 Case #: [id number] Room: 6 Case Physicians: Esau Rahman M.D. Start: 13:45 Pan Hurtado M.D. Admission:09/10/2020 Discharge:09/18/2020 Referring Physician: Reshma Baig M.D. Procedures: * Left Heart Catheterization * Aortic Root Aortogram * Transcatheter Aortic Valve Replacement * Temporary Pacemaker Insertion In Graphic Design Teacher * Arterial Line / Sheath Insert * [...] patient was designated asASA Class IV. The [facility] clinical frailty scale is 5: Mildly Frail. [...] Bobo Jemma 3 Ultra 23 mm THV (s/x=[id number]) transcathetervalve was inserted using standard technique. Protamine [...] dose administered prior to arrival in the film laboratory technician. Recommended anti-platelet/anti-thrombotic regimen: Continue clopidogrel 75 mg daily for 3 months then stop. Custom Protocol: After plavix is stopped, restart asa 81 mg daily. These recommendations are made at the time of the intervention.Patient and provider preferences or a changing clinical situation mayrequire modification of this regimen. Consult [facility] Interventional Cardiologyfor questions. Conclusions: * Severe aortic [...] around the aorticarch to position across the [place] aortic valve. Rapid ventricular pacingwas instituted, and [...] heartcatheterization, aortic root aortogram, temporary pacemaker in film laboratory technician, arterial line/ sheath insert, venous line / sheath insert, transesophageal echoduring cath, ABG, TAVR, access site angiography and vascular ultrasound. Dr. Pan Hurtado M.D. performed the left heart catheterization,aortic root aortogram, temporary pacemaker in film laboratory technician, arterial line /sheath insert, venous line / sheath insert, transesophageal echo during cath,ABG and TAVR. Esau Mcgarry M.D. Electronically Signed by: Esau Rahman M.D. Report Finalized: 09/16/2020 18:29 Report Last Ammended: 10/08/2020 11:00 Esau Rahman MD CARDIAC CATH JESSICA BLOCK * (ABNORMAL) Point of Care Blood Gas Historical (09/15/2020 2:40 PM EST) POC pH 7.44 7.35 - 7.45 [facility] POC PCO2 26(L) 35 - 45 mmHg [facility] POC PO2 75(L) 85 - 104 mmHg [facility] POC Base Excess -7.0(L) -3.0 - 3.0 mmol/L [facility] POC HCO3 17.5(L) 20.0 - 26.0 mmol/L [facility] POC Sodium 140 135 - 145 mmol/L [facility] POC Potassium 3.8 3.5 - 5.0 mmol/L [facility] POC Hematocrit 29.0(L) 34.0 - 45.0 % [facility] POC Calc Hgb 9.9(L) 11.2 - 15.7 gm/dL [facility] Comment:The calculation of h emoglobin from hematocrit assumes a normal MCHC. POC Bgas Loc CC LAB [facility] Blood specimen (specimen) 09/15/2020 2:40 PM EST 09/16/2020 9:00 AM EST Pan Hurtado MD CHEMISTRY ORDERABL ES Performing Organization Address [facility] [place] [address] * Prepare RBC (09/15/2020 2:35 PM EST) Dispensed? Yes [facility] Blood specimen (specimen) 09/15/2020 2:35 PM EST 09/15/2020 2:33 PM EST Abiodun Chun MD BLOOD BANK PRODUCT O RDERABLES Performing Organization Address [facility] Co de Phone Number [facility] [place] [address] * (ABNORMAL) Point of Care Blood Gas Historical (09/15/2020 1:51 PM EST) POC pH 7.40 7.35 - 7.45 [facility] POC PCO2 37 35 - 45 mmHg [facility] POC PO2 71(L) 85 - 104 mmHg [facility] POC Base Excess -2.0 -3.0 - 3.0 mmol/L [facility] POC HCO3 22.7 20.0 - 26.0 mmol/L [facility] POC Sodium 142 135 - 145 mmol/L [facility] POC Potassium 3.7 3.5 - 5.0 mmol/L [facility] POC Hematocrit 25.0(L) 34.0 - 45.0 % [facility] POC Calc Hgb 8.5(L) 11.2 - 15.7 gm/dL [facility] Comment:The calculation of h emoglobin from hematocrit assumes a normal MCHC. POC Bgas Loc CC LAB [facility] Blood specimen (specimen) 09/15/2020 1:51 PM EST 09/16/2020 9:00 AM EST Pan Hurtado MD CHEMISTRY ORDERABL ES [facility] [place] [address] * POCT Glucose (09/15/2020 1:50 PM EST) POC Glucose 151 65 - 199 mg/dL [facility] Comment: Supplemental ranges: <140 mg/dL before meals <180 mg/dL all other times of the day Blood specimen (specimen) 09/15/2020 1:50 PM EST 09/15/2020 1:50 PM EST Abiodun Chun MD POINT OF CARE TEST O RDERABLES Performing Organization Address City/[facility]/ZIP Co de Phone Number [facility] [place] [address] * POCT Glucose (09/15/2020 11:40 AM EST) POC Glucose 176 65 - 199 mg/dL [facility] Comment: Supplemental ranges: <140 mg/dL before meals <180 mg/dL all other times of the day Blood specimen (specimen) 09/15/2020 11:40 AM EST 09/15/2020 11:40 AM EST Abiodun Chun MD POINT OF CARE TEST O RDROBIN [facility] [place] [address] * ABORH Recheck Status (09/15/2020 10:09 AM EST) ABORH Type Recheck Completed [facility] Blood specimen (specimen) 09/15/2020 10:09 AM EST 09/15/2020 10:14 AM EST Narrative Resulting Agency Comment Spec In Lab Esau Rahman MD BLOOD BANK LAB OR DERABLES Performing Organization Address [facility] Co de Phone Number [facility] [place] [address] * Antibody screen (09/15/2020 10:09 AM EST) Ab Screen Interp Negative [facility] Expires at [id number] on: 09/18/2020 [facility] Blood specimen (specimen) 09/15/2020 10:09 AM EST 09/15/2020 10:14 AM EST Narrative Resulting Agency Comment Spec In Lab Esau Rahman MD BLOOD BANK LAB OR DERABLES Performing Organization Address [facility] Co de Phone Number [facility] [place] [address] * ABO/Rh Typing (09/15/2020 10:09 AM EST) ABORH Type O Pos [facility] Blood specimen (specimen) 09/15/2020 10:09 AM EST 09/15/2020 10:14 AM EST Narrative Resulting Agency Comment Spec In Lab Esau Rahman MD BLOOD BANK LAB OR DERABLES Performing Organization Address [facility] – [facility] Co de Phone Number [facility] [place] [address] * POCT Glucose (09/15/2020 8:01 AM EST) POC Glucose 137 65 - 199 mg/dL [facility] Comment: Supplemental ranges: <140 mg/dL before meals <180 mg/dL all other times of the day Blood specimen (specimen) 09/15/2020 8:01 AM EST 09/15/2020 8:01 AM EST Abiodun Chun MD POINT OF CARE TEST O RDERABLES Performing Organization Address [facility]/ZIP Co de Phone Number [facility] [place] [address] * (ABNORMAL) Differential, Automated (09/15/2020 4:45 AM EST) Neutrophils % 56.0 % [facility] Neutr Abs (ANC) 3.84 1.70 - 6.10 x10(3)/ L [facility] Lymphocytes % 27.9 % [facility] Lymphocytes Abs 1.9 0.9 - 3.2 x10(3)/[facility] Monocytes % 8.4 % [facility] Monocyte Abs 0.6 0.3 - 0.9 x10(3)/[facility] Eosinophils % 5.5 % [facility] Eosinophils Abs 0.4 0.0 - 0.4 x10(3)/[facility] Basophils % 1.0 % [facility] Basophils Abs 0.1 0.0 - 0.1 x10(3)/[facility] Immature Gran % 1.20 % [facility] Comment: Immature granulocytes(IG's)percentage and absolute count will include metamyelocytes, myelocytes, and promyelocytes. Blood smears from CBCs yielding IG's will be scanned manually for concordance. If this scan disagrees with the automated IG or if promyelocytes are noted, a manual differential will be performed. Nanci Gran Abs 0.08(H) 0.00 - 0.04 x10(3)/ L [facility] Blood specimen (specimen) 09/15/2020 4:45 AM EST 09/15/2020 5:15 AM EST Narrative Resulting Agency Comment Spec In Lab Carol Reyna MD HEMATOLOGY ORDERABLES Performing Organization Address [facility]/ZIP Co de Phone Number [facility] [place] [address] * (ABNORMAL) Hemogram (09/15/2020 4:45 AM EST) WBC 6.9 4.0 - 9.5 x10(3)/[facility] LAB[facility]AT[facility] RBC 3.93(L) 4.00 - 5.21 x10(6)/[facility] Hemoglobin 8.5(L) 11.7 - 15.5 gm/dL [facility] Hematocrit 28.2(L) 35.7 - 45.8 % [facility] MCV 71.8(L) 82.6 - 94.4 fL [facility] MCH 21.6(L) 27.1 - 32.0 pg [facility] MCHC 30.1(L) 31.7 - 35.0 gm/dL [facility] Platelets 316 145 - 357 x10(3)/[facility] LAB[facility]ATORY RDWSD 56.9(H) 37.0 - 46.0 [facility] RDWCV 23.0(H) 11.5 - 14.1 % [facility] MPV 10.2 7.6 - 12.9 fL [facility] nRBC % Auto 0.0 % [facility] nRBC Abs Auto 0.000 0.000 - 0.000 x10(3)/[facility] Blood specimen (specimen) 09/15/2020 4:45 AM EST 09/15/2020 5:15 AM EST Narrative Resulting Agency Comment Spec In Lab Carol Reyna MD HEMATOLOGY ORDERABLES [facility] [place] [address] * Magnesium (09/15/2020 4:45 AM EST) Magnesium 0.92 0.69 - 1.07 mmol/L [facility] Blood specimen (specimen) 09/15/2020 4:45 AM EST 09/15/2020 5:15 AM EST Narrative Resulting Agency Comment Spec In Lab Amarilys Cerna MD CHEMISTRY ORDERABLES [facility] [place] [address] * (ABNORMAL) BMP w/fasting Glucose (09/15/2020 4:45 AM EST) Glucose Fasting 164(H) 65 - 99 mg/dL [facility] Comment: ?Fasting* Glucose Interpretive Criteria [...] of Diabetes Mellitus, Position Statement from the [place] [employer]. ??Diabetes Care, Volume 33, Supplement 1, Aug 2009 BUN 16 8 - 18 mg/dL [facility] Creatinine 0.99 0.70 - 1.20 mg/dL [facility] Sodium 139 135 - 145 mmol/L [facility] Potassium 4.2 3.5 - 5.0 mmol/L [facility] Comment: Please note: ??Patients with WBC >100,000 may have falsely elevated Potassium levels. ??For accurate Potassium quantification in these patients send serum separator tube (gold top) for subsequent determinations. ??Contact the Clinical Chemistry Laboratory if there are any questions. Chloride 106 98 - 107 mmol/L [facility] CO2 24 22 - 31 mmol/L [facility] Anion Gap 9 5 - 15 mmol/L [facility] Calcium 9.0 8.5 - 10.5 mg/dL [facility] Estimated GFR 54(L) >=60 mL/min/1. 73 m?? [facility] [...] Cerna MD CHEMISTRY ORDERABLES Performing Organization Address [facility] Co de Phone Number [facility] [place] [address] * APTT (09/15/2020 4:45 AM EST) PTT 26 25 - 37 sec [facility] Comment: The PTT is NOT appropriate for heparin monitoring. Use the Anti-Xa level for heparin monitoring (HEP UFH) or LMWH monitoring (HEP LMW). A PTT less than 37 seconds generally indicates adequate hemostasis. Blood specimen (specimen) 09/15/2020 4:45 AM EST 09/15/2020 5:15 AM EST Narrative Resulting Agency Comment Spec In Lab Amarilys Cerna MD HEMATOLOGY ORDERABLE S Performing Organization Address [facility] Co de Phone Number [facility] [place] [address] * Prothrombin Time (09/15/2020 4:45 AM EST) PT 11.2 9.4 - 12.5 sec [facility] INR 1.0 [facility] Comment: An INR <2.0 [...] MD HEMATOLOGY ORDERABLE S Performing Organization Address City/[facility] Co de Phone Number [facility] [place] [address] * POCT Glucose (09/15/2020 4:27 AM EST) POC Glucose 180 65 - 199 mg/dL [facility] Comment: Supplemental ranges: <140 mg/dL before meals <180 mg/dL all other times of the day Blood specimen (specimen) 09/15/2020 4:27 AM EST 09/15/2020 4:27 AM EST Abiodun Chun MD POINT OF CARE TEST O RDORBIN Performing Organization Address [facility] Co de Phone Number [facility] [place] [address] * POCT Glucose (09/15/2020 12:07 AM EST) POC Glucose 189 65 - 199 mg/dL [facility] Comment: Supplemental ranges: <140 mg/dL before meals <180 mg/dL all other times of the day Blood specimen (specimen) 09/15/2020 12:07 AM EST 09/15/2020 12:07 AM EST Abiodun Chun MD POINT OF CARE TEST O POOLERATOAN Performing Organization Address [facility] Co de Phone Number [facility] [place] [address] * (ABNORMAL) POCT Glucose (09/14/2020 8:27 PM EST) POC Glucose 218(H) 65 - 199 mg/dL [facility] Comment: Supplemental ranges: <140 mg/dL before meals <180 mg/dL all other times of the day Blood specimen (specimen) 09/14/2020 8:27 PM EST 09/14/2020 8:27 PM EST Abiodun Chun MD POINT OF CARE TEST O RDROBIN Performing Organization Address City/[facility] Co de Phone Number [facility] [place] [address] * POCT Glucose (09/14/2020 5:13 PM EST) POC Glucose 177 65 - 199 mg/dL [facility] Comment: Supplemental ranges: <140 mg/dL before meals <180 mg/dL all other times of the day Blood specimen (specimen) 09/14/2020 5:13 PM EST 09/14/2020 5:13 PM EST Abiodun Chun MD POINT OF CARE TEST O ISAIAH Performing Organization Address [facility] Co de Phone Number [facility] [place] [address] * POCT Glucose (09/14/2020 12:31 PM EST) POC Glucose 168 65 - 199 mg/dL [facility] Comment: Supplemental ranges: <140 mg/dL before meals <180 mg/dL all other times of the day Blood specimen (specimen) 09/14/2020 12:31 PM EST 09/14/2020 12:31 PM EST Abiodun Chun MD POINT OF CARE TEST O RDROBIN Performing Organization Address [facility] Co de Phone Number [facility] [place] [address] * CT Angiogram Abdomen & Pelvis w [...] ? Electronically signed by: Jos Collins DO, [facility] ([phone]), at 09/14/2020 1:47 PM Narrative 09/14/2020 1:47 [...] spinal canal stenosis. Procedure Note Jos Collins, DO - 09/14/2020 EXAMINATION: CT ANGIOGRAM ABDOMEN AND [...] below. Electronically signed by: Jos Collins DO, [facility]([phone]), at 09/14/2020 1:47 PM Abiodun Chun MD [...] ? Electronically signed by: Raymundo Trivedi MD, [facility] ([phone]), at 09/14/2020 2:29 PM Narrative 09/14/2020 2:29 [...] three sinuses of Valsalva, set equidistant: ?? MALTESE 9 cranial 5 Ommuuqa-nh-acstfyqo height: Right: 12.7 mm Left: 14.1 mm [...] the three sinuses of Valsalva, set equidistant: MALTESE 9 cranial 5 Esygjmu-cm-fulfzjla height: Right: 12.7 mm Left: 14.1 mm [...] below. Electronically signed by: Raymundo Trivedi MD, [facility]([phone]), at 09/14/2020 2:29 PM Amarilys Cerna MD IM CT ORDERABLES * POCT Glucose (09/14/2020 7:38 AM EST) Pathologist [facility] POC Glucose 169 65 - 199 mg/dL [facility] Comment: Supplemental ranges: <140 mg/dL before meals <180 mg/dL all other times of the day Blood specimen (specimen) 09/14/2020 7:38 AM EST 09/14/2020 7:38 AM EST Abiodun Chun MD POINT OF CARE TEST O RDERABLES [facility] [place] [address] * Scan, Peripheral Blood (09/14/2020 3:51 AM EST) Pathologist [facility] Plat Estimate Normal [facility] RBC Morphology Abnormal [facility] Microcytes 1-5 /HPF [facility] Ovalocytes 1-5 /HPF [facility] Blood specimen (specimen) 09/14/2020 3:51 AM EST 09/14/2020 4:09 AM EST Narrative Resulting Agency Comment Spec In Lab Carol Reyna MD HEMATOLOGY ORDERABLES Performing Organization Address City/[facility]/ZIP Co de Phone Number [facility] [place] [address] * (ABNORMAL) Differential, Automated (09/14/2020 3:51 AM EST) Neutrophils % 54.5 % [facility] Neutr Abs (ANC) 3.56 1.70 - 6.10 x10(3)/[facility] Lymphocytes % 27.2 % [facility] Lymphocytes Abs 1.8 0.9 - 3.2 x10(3)/[facility] Monocytes % 9.0 % [facility] Monocyte Abs 0.6 0.3 - 0.9 x10(3)/[facility] Eosinophils % 7.6 % [facility] Eosinophils Abs 0.5(H) 0.0 - 0.4 x10(3)/[facility] Basophils % 1.1 % [facility] Basophils Abs 0.1 0.0 - 0.1 x10(3)/[facility] Immature Gran % 0.60 % [facility] Comment: Immature granulocytes(IG's)percentage and absolute count will include metamyelocytes, myelocytes, and promyelocytes. Blood smears from CBCs yielding IG's will be scanned manually for concordance. If this scan disagrees with the automated IG or if promyelocytes are noted, a manual differential will be performed. Nanci Gran Abs 0.04 0.00 - 0.04 x10(3)/[facility] Blood specimen (specimen) 09/14/2020 3:51 AM EST 09/14/2020 4:09 AM EST Narrative Resulting Agency Comment Spec In Lab Carol Reyna MD HEMATOLOGY ORDERABLES [facility] [place] [address] * (ABNORMAL) Hemogram (09/14/2020 3:51 AM EST) [facility] WBC 6.5 4.0 - 9.5 x10(3)/[facility] LABORATORY RBC 3.99(L) 4.00 - 5.21 x10(6)/[facility] Hemoglobin 8.4(L) 11.7 - 15.5 gm/dL [facility] Hematocrit 28.7(L) 35.7 - 45.8 % [facility] MCV 71.9(L) 82.6 - 94.4 [facility] MCH 21.1(L) 27.1 - 32.0 pg [facility] MCHC 29.3(L) 31.7 - 35.0 gm/dL [facility] Platelets 325 145 - 357 x10(3)/[facility] RDWSD 55.1(H) 37.0 - 46.0 [facility] RDWCV 22.2(H) 11.5 - 14.1 % [facility] MPV 10.0 7.6 - 12.9 [facility] nRBC % Auto 0.3 % [facility] nRBC Abs Auto 0.020(H) 0.000 - 0.000 x10(3)/[facility] Blood specimen (specimen) 09/14/2020 3:51 AM EST 09/14/2020 4:09 AM EST Narrative Resulting Agency Comment Spec In Lab Carol Reyna MD HEMATOLOGY ORDERABLES [facility] [place] [address] * Magnesium (09/14/2020 3:51 AM EST) Magnesium 0.96 0.69 - 1.07 mmol/L [facility] Blood specimen (specimen) 09/14/2020 3:51 AM EST 09/14/2020 4:09 AM EST Narrative Resulting Agency Comment Spec In Lab Amarilys Cerna MD CHEMISTRY ORDERABLES Performing Organization Address [facility] Phone Number [facility] [place] [address] * (ABNORMAL) Hepatic Function Panel (09/14/2020 3:51 AM EST) Pathologist [facility] Total Protein 6.2 6.1 - 8.0 gm/dL [facility] Albumin 4.2 3.2 - 5.2 gm/dL [facility] AST 24 0 - 30 unit/L [facility] ALT 28 0 - 30 unit/L [facility] Alk Phos 111(H) 35 - 105 unit/L [facility] Total Bilirubin 1.0 0.2 - 1.3 mg/dL [facility] Bili, Direct 0.3 0.0 - 0.3 mg/dL [facility] Blood specimen (specimen) 09/14/2020 3:51 AM EST 09/14/2020 4:09 AM EST Narrative Resulting Agency Comment Spec In Lab Amarilys Cerna MD CHEMISTRY ORDERABLES Performing Organization Address [facility] Phone Number [facility] [place] [address] * (ABNORMAL) BMP w/fasting Glucose (09/14/2020 3:51 AM EST) Glucose Fasting 159(H) 65 - 99 mg/dL [facility] Comment: ?Fasting* Glucose Interpretive Criteria [...] of Diabetes Mellitus, Position Statement from the [place] [employer]. ??Diabetes Care, Volume 33, Supplement 1, Aug 2009 BUN 13 8 - 18 mg/dL [facility] Creatinine 1.11 0.70 - 1.20 mg/dL [facility] Sodium 140 135 - 145 mmol/L [facility] Potassium 4.4 3.5 - 5.0 mmol/L [facility] Comment: Please note: ??Patients with WBC >100,000 may have falsely elevated Potassium levels. ??For accurate Potassium quantification in these patients send serum separator tube (gold top) for subsequent determinations. ??Contact the Clinical Chemistry Laboratory if there are any questions. Chloride 107 98 - 107 mmol/L [facility] CO2 24 22 - 31 mmol/L [facility] Anion Gap 9 5 - 15 mmol/L [facility] Calcium 8.9 8.5 - 10.5 mg/dL [facility] Estimated GFR 47(L) >=60 mL/min/1. 73 m?? [facility] [...] Cerna MD CHEMISTRY ORDERABLES Performing Organization Address City/[facility]/ZIP Co de Phone Number [facility] [place] [address] * APTT (09/14/2020 3:51 AM EST) PTT 28 25 - 37 sec [facility] Comment: The PTT is NOT appropriate for heparin monitoring. Use the Anti-Xa level for heparin monitoring (HEP UFH) or LMWH monitoring (HEP LMW). A PTT less than 37 seconds generally indicates adequate hemostasis. Blood specimen (specimen) 09/14/2020 3:51 AM EST 09/14/2020 4:09 AM EST Narrative Resulting Agency Comment Spec In Lab Amarilys Cerna MD HEMATOLOGY ORDERABLE S Performing Organization Address [facility] Co de Phone Number [facility] [place] [address] * Prothrombin Time (09/14/2020 3:51 AM EST) PT 12.2 9.4 - 12.5 sec [facility] INR 1.1 [facility] Comment: An INR <2.0 [...] MD HEMATOLOGY ORDERABLE S Performing Organization Address City/[facility]/ZIP Co de Phone Number [facility] [place] [address] * POCT Glucose (09/14/2020 3:18 AM EST) POC Glucose 155 65 - 199 mg/dL [facility] Comment: Supplemental ranges: <140 mg/dL before meals <180 mg/dL all other times of the day Blood specimen (specimen) 09/14/2020 3:18 AM EST 09/14/2020 3:18 AM EST Abiodun Chun MD POINT OF CARE TEST O RDERABLES Performing Organization Address [facility]/ZIP Co de Phone Number [facility] [place] [address] * POCT Glucose (09/13/2020 11:31 PM EST) Pathologist [facility] POC Glucose 198 65 - 199 mg/dL [facility] Comment: Supplemental ranges: <140 mg/dL before meals <180 mg/dL all other times of the day Blood specimen (specimen) 09/13/2020 11:31 PM EST 09/13/2020 11:31 PM EST Abiodun Chun MD POINT OF CARE TEST O RDERABLES Performing Organization Address [facility] Co de Phone Number [facility] [place] [address] * ABORH Recheck Status (09/13/2020 10:50 PM EST) ABORH Type Recheck Completed [facility] Blood specimen (specimen) 09/13/2020 10:50 PM EST 09/13/2020 10:58 PM EST Narrative Resulting Agency Comment Spec In Lab Carol Reyna MD BLOOD BANK LAB ORDERABLES Performing Organization Address [facility] Co de Phone Number [facility] [place] [address] * Antibody screen (09/13/2020 10:50 PM EST) Ab Screen Interp Negative [facility] Expires at [id number] on: 09/16/2020 [facility] Blood specimen (specimen) 09/13/2020 10:50 PM EST 09/13/2020 10:58 PM EST Narrative Resulting Agency Comment Spec In Lab Carol Reyna MD BLOOD BANK LAB ORDERABLES Performing Organization Address City/[facility]/ZIP Co de Phone Number [facility] [place] [address] * ABO/Rh Typing (09/13/2020 10:50 PM EST) ABORH Type O Pos [facility] Blood specimen (specimen) 09/13/2020 10:50 PM EST 09/13/2020 10:58 PM EST Narrative Resulting Agency Comment Spec In Lab Carol Reyna MD BLOOD BANK LAB ORDERABLES Performing Organization Address [facility]/ZIP Co de Phone Number [facility] [place] [address] * (ABNORMAL) Hemoglobin and Hematocrit, blood (09/13/2020 10:50 PM EST) Pathologist [facility] Hemoglobin 8.8(L) 11.7 - 15.5 gm/dL [facility] Hematocrit 30.0(L) 35.7 - 45.8 % [facility] Blood specimen (specimen) 09/13/2020 10:50 PM EST 09/13/2020 11:05 PM EST Narrative Resulting Agency Comment Spec In Lab Abiodun Chun MD HEMATOLOGY ORDERABLE S Performing Organization Address City/[facility]/ZIP Co de Phone Number [facility] [place] [address] * (ABNORMAL) POCT Glucose (09/13/2020 8:00 PM EST) Pathologist [facility] POC Glucose 203(H) 65 - 199 mg/dL [facility] Comment: Supplemental ranges: <140 mg/dL before meals <180 mg/dL all other times of the day Blood specimen (specimen) 09/13/2020 8:00 PM EST 09/13/2020 8:00 PM EST Abiodun Chun MD POINT OF CARE TEST O RDERABLES Performing Organization Address [facility] Co de Phone Number [facility] [place] [address] * POCT Glucose (09/13/2020 4:43 PM EST) POC Glucose 192 65 - 199 mg/dL [facility] Comment: Supplemental ranges: <140 mg/dL before meals <180 mg/dL all other times of the day Blood specimen (specimen) 09/13/2020 4:43 PM EST 09/13/2020 4:43 PM EST Abiodun Chun MD POINT OF CARE TEST O RDERATOAN Performing Organization Address [facility] Co de Phone Number [facility] [place] [address] * (ABNORMAL) POCT Glucose (09/13/2020 11:37 AM EST) POC Glucose 212(H) 65 - 199 mg/dL [facility] Comment: Supplemental ranges: <140 mg/dL before meals <180 mg/dL all other times of the day Blood specimen (specimen) 09/13/2020 11:37 AM EST 09/13/2020 11:37 AM EST Abiodun Chun MD POINT OF CARE TEST O RDERATOAN Performing Organization Address [facility] Co de Phone Number [facility] [place] [address] * Potassium (09/13/2020 11:25 AM EST) Potassium 4.2 3.5 - 5.0 mmol/L [facility] [...] MD CHEMISTRY ORDERABL ES Performing Organization Address [facility] Co de Phone Number [facility] [place] [address] * (ABNORMAL) Hemoglobin and Hematocrit, blood (09/13/2020 11:25 AM EST) Pathologist [facility] Hemoglobin 9.0(L) 11.7 - 15.5 gm/dL [facility] Hematocrit 30.2(L) 35.7 - 45.8 % [facility] Blood specimen (specimen) 09/13/2020 11:25 AM EST 09/13/2020 11:39 AM EST Narrative Resulting Agency Comment Spec In Lab Abiodun Chun MD HEMATOLOGY ORDERABLE S Performing Organization Address [facility] Co de Phone Number [facility] [place] [address] * POCT Glucose (09/13/2020 7:16 AM EST) [facility] POC Glucose 141 65 - 199 mg/dL [facility] Comment: Supplemental ranges: <140 mg/dL before meals <180 mg/dL all other times of the day Blood specimen (specimen) 09/13/2020 7:16 AM EST 09/13/2020 7:16 AM EST Abiodun Chun MD POINT OF CARE TEST O RDERABLES Performing Organization Address [facility] Co de Phone Number [facility] [place] [address] * Smear Review Report (09/13/2020 5:39 AM EST) Pathologist [facility] Smear Review Report [id number] ? Location: [facility]; [facility]; The signing pathologist has (i) examined the relevant preparation(s) for the specimen(s) and (ii) rendered or confirmed the diagnosis(es). . ? Smear Review DIAGNOSIS Peripheral blood, smear review: - Microcytic anemia compatible with iron deficiency (see Discussion). Electronically signed by: ??Evette HARRY, Tracy Conteh Verified: ??09/13/2020 ?Hematopathologist Performed at: ??-[facility] Dept. of Pathology, [place], [place] DISCUSSION The RBC morphology taken together [...] and peripheral blood smear requested for evaluation. [facility] 09/13/2020 5:39 AM EST Abigail Todd MD PATHOLOGY/CYTOLOGY O RDERABLES Performing Organization Address City/[facility]/ZIP Co de Phone Number [facility] [place] [address] * Scan, Peripheral Blood (09/13/2020 5:39 AM EST) Pathologist [facility] Plat Estimate Normal [facility] RBC Morphology Abnormal [facility] Microcytes 1-5 /HPF [facility] Hypochromia Slight [facility] Ovalocytes 6-10 /HPF [facility] Tear Drop Cells 1-5 /HPF [facility] Blood specimen (specimen) 09/13/2020 5:39 AM EST 09/13/2020 5:44 AM EST Narrative Resulting Agency Comment Spec In Lab Carol Reyna MD HEMATOLOGY ORDERABLES Performing Organization Address [facility] Co de Phone Number [facility] [place] [address] * Differential, Automated (09/13/2020 5:39 AM EST) [facility] Neutrophils % 59.7 % [facility] Neutr Abs (ANC) 3.66 1.70 - 6.10 x10(3)/[facility] Lymphocytes % 23.6 % [facility] Lymphocytes Abs 1.4 0.9 - 3.2 x10(3)/[facility] Monocytes % 8.8 % [facility] Monocyte Abs 0.5 0.3 - 0.9 x10(3)/[facility] Eosinophils % 6.8 % [facility] Eosinophils Abs 0.4 0.0 - 0.4 x10(3)/[facility] Basophils % 0.8 % [facility] Basophils Abs 0.0 0.0 - 0.1 x10(3)/[facility] Immature Gran % 0.30 % [facility] Comment: Immature granulocytes(IG's)percentage and absolute count will include metamyelocytes, myelocytes, and promyelocytes. Blood smears from CBCs yielding IG's will be scanned manually for concordance. If this scan disagrees with the automated IG or if promyelocytes are noted, a manual differential will be performed. Nanci Gran Abs 0.02 0.00 - 0.04 x10(3)/[facility] LABORATORY Blood specimen (specimen) 09/13/2020 5:39 AM EST 09/13/2020 5:44 AM EST Narrative Resulting Agency Comment Spec In Lab Carol Reyna MD HEMATOLOGY ORDERABLES [facility] [place] [address] * (ABNORMAL) Hemogram (09/13/2020 5:39 AM EST) WBC 6.1 4.0 - 9.5 x10(3)/[facility] RBC 4.01 4.00 - 5.21 x10(6)/[facility] Hemoglobin 8.5(L) 11.7 - 15.5 gm/dL [facility] Hematocrit 28.2(L) 35.7 - 45.8 % [facility] MCV 70.3(L) 82.6 - 94.4 fL [facility] MCH 21.2(L) 27.1 - 32.0 pg [facility] MCHC 30.1(L) 31.7 - 35.0 gm/dL [facility] Platelets 315 145 - 357 x10(3)/[facility] RDWSD 51.5(H) 37.0 - 46.0 [facility] LABORATORY RDWCV 20.8(H) 11.5 - 14.1 % [facility] MPV 9.8 7.6 - 12.9 fL [facility] nRBC % Auto 0.3 % [facility] nRBC Abs Auto 0.020(H) 0.000 - 0.000 x10(3)/mcL [facility] Blood specimen (specimen) 09/13/2020 5:39 AM EST 09/13/2020 5:44 AM EST Narrative Resulting Agency Comment Spec In Lab Carol Reyna MD HEMATOLOGY ORDERABLES [facility] [place] [address] * Magnesium (09/13/2020 5:39 AM EST) [facility] Magnesium 1.04 0.69 - 1.07 mmol/L [facility] Blood specimen (specimen) 09/13/2020 5:39 AM EST 09/13/2020 5:44 AM EST Narrative Resulting Agency Comment Spec In Lab Amarilys Cerna MD CHEMISTRY ORDERABLES Performing Organization Address City/[facility]/ZIP Co de Phone Number [facility] [place] [address] * (ABNORMAL) Hepatic Function Panel (09/13/2020 5:39 AM EST) Pathologist [facility] Total Protein 6.3 6.1 - 8.0 gm/dL [facility] Albumin 4.0 3.2 - 5.2 gm/dL [facility] AST 41(H) 0 - 30 unit/L [facility] Comment:result rechecked-[place] ALT 30 0 - 30 unit/L [facility] Alk Phos 110(H) 35 - 105 unit/L [facility] Total Bilirubin 1.9(H) 0.2 - 1.3 mg/dL [facility] Bili, Direct 0.4(H) 0.0 - 0.3 mg/dL [facility] Blood specimen (specimen) 09/13/2020 5:39 AM EST 09/13/2020 5:44 AM EST Narrative Resulting Agency Comment Spec In Lab Amarilys Cerna MD CHEMISTRY ORDERABLES [facility] [place] [address] * (ABNORMAL) BMP w/fasting Glucose (09/13/2020 5:39 AM EST) Glucose Fasting 136(H) 65 - 99 mg/dL [facility] Comment: ?Fasting* Glucose Interpretive Criteria [...] of Diabetes Mellitus, Position Statement from the [place] [employer]. ??Diabetes Care, Volume 33, Supplement 1, Aug 2009 BUN 12 8 - 18 mg/dL [facility] Creatinine 0.98 0.70 - 1.20 mg/dL [facility] Sodium 141 135 - 145 mmol/L [facility] Potassium 4.3 3.5 - 5.0 mmol/L [facility] Comment: Please note: ??Patients with WBC >100,000 may have falsely elevated Potassium levels. ??For accurate Potassium quantification in these patients send serum separator tube (gold top) for subsequent determinations. ??Contact the Clinical Chemistry Laboratory if there are any questions. Chloride 108(H) 98 - 107 mmol/L [facility] CO2 23 22 - 31 mmol/L [facility] Anion Gap 10 5 - 15 mmol/L [facility] Calcium 8.8 8.5 - 10.5 mg/dL [facility] Estimated GFR 54(L) >=60 mL/min/1. 73 m?? [facility] [...] Cerna MD CHEMISTRY ORDERABLES Performing Organization Address [facility] Co de Phone Number [facility] [place] [address] * APTT (09/13/2020 5:39 AM EST) PTT 29 25 - 37 sec [facility] Comment: The PTT is NOT appropriate for heparin monitoring. Use the Anti-Xa level for heparin monitoring (HEP UFH) or LMWH monitoring (HEP LMW). A PTT less than 37 seconds generally indicates adequate hemostasis. Blood specimen (specimen) 09/13/2020 5:39 AM EST 09/13/2020 5:44 AM EST Narrative Resulting Agency Comment Spec In Lab Amarilys Cerna MD HEMATOLOGY ORDERABLE S Performing Organization Address City/[facility] Co de Phone Number [facility] [place] [address] * (ABNORMAL) Prothrombin Time (09/13/2020 5:39 AM EST) PT 12.8(H) 9.4 - 12.5 sec [facility] INR 1.1 [facility] Comment: An INR <2.0 [...] MD HEMATOLOGY ORDERABLE S Performing Organization Address [facility] Co de Phone Number [facility] [place] [address] * Peripheral Smear Review (09/13/2020 5:39 AM EST) Periph Smear Rev See Comment [facility] Comment: When completed by the Pathologist, report [id number] will display under Hematopathology Reports. Blood specimen (specimen) 09/13/2020 5:39 AM EST 09/13/2020 5:44 AM EST Narrative Resulting Agency Comment Spec In Lab Abiodun Chun MD HEMATOLOGY ORDERABLE S Performing Organization Address [facility] Co de Phone Number [facility] [place] [address] * POCT Glucose (09/13/2020 4:02 AM EST) POC Glucose 113 65 - 199 mg/dL [facility] Comment: Supplemental ranges: <140 mg/dL before meals <180 mg/dL all other times of the day Blood specimen (specimen) 09/13/2020 4:02 AM EST 09/13/2020 4:02 AM EST Abiodun Chun MD POINT OF CARE TEST O RDERABLES Performing Organization Address [facility] Co de Phone Number [facility] [place] [address] * POCT Glucose (09/12/2020 11:46 PM EST) POC Glucose 118 65 - 199 mg/dL [facility] Comment: Supplemental ranges: <140 mg/dL before meals <180 mg/dL all other times of the day Blood specimen (specimen) 09/12/2020 11:46 PM EST 09/12/2020 11:46 PM EST Abiodun Chun MD POINT OF CARE TEST O RDERABLES Performing Organization Address City/[facility]/ZIP Co de Phone Number [facility] [place] [address] * (ABNORMAL) Hemoglobin and Hematocrit, blood (09/12/2020 10:17 PM EST) Pathologist [facility] Hemoglobin 8.8(L) 11.7 - 15.5 gm/dL [facility] Hematocrit 29.2(L) 35.7 - 45.8 % [facility] Blood specimen (specimen) 09/12/2020 10:17 PM EST 09/12/2020 10:27 PM EST Narrative Resulting Agency Comment Spec In Lab Abiodun Chun MD HEMATOLOGY ORDERABLE S Performing Organization Address City/[facility] Co de Phone Number [facility] [place] [address] * Potassium (09/12/2020 10:17 PM EST) Potassium 4.2 3.5 - 5.0 mmol/L [facility] [...] Chun MD CHEMISTRY ORDERABLES Performing Organization Address [facility] Co de Phone Number [facility] [place] [address] * POCT Glucose (09/12/2020 7:53 PM EST) POC Glucose 159 65 - 199 mg/dL [facility] Comment: Supplemental ranges: <140 mg/dL before meals <180 mg/dL all other times of the day Blood specimen (specimen) 09/12/2020 7:53 PM EST 09/12/2020 7:53 PM EST Abiodun Chun MD POINT OF CARE TEST O RDERABLES Performing Organization Address [facility] Co de Phone Number [facility] [place] [address] * (ABNORMAL) Hemoglobin and Hematocrit, blood (09/12/2020 7:12 PM EST) Hemoglobin 8.7(L) 11.7 - 15.5 gm/dL [facility] Hematocrit 28.3(L) 35.7 - 45.8 % [facility] Blood specimen (specimen) 09/12/2020 7:12 PM EST 09/12/2020 8:17 PM EST Narrative Resulting Agency Comment Spec In Lab Amarilys Cerna MD HEMATOLOGY ORDERABLE S Performing Organization Address [facility] Co de Phone Number [facility] [place] [address] * POCT Glucose (09/12/2020 3:55 PM EST) POC Glucose 131 65 - 199 mg/dL [facility] Comment: Supplemental ranges: <140 mg/dL before meals <180 mg/dL all other times of the day Blood specimen (specimen) 09/12/2020 3:55 PM EST 09/12/2020 3:55 PM EST Abiodun Chun MD POINT OF CARE TEST O RDERABLES Performing Organization Address [facility] Co de Phone Number [facility] [place] [address] * Specimen to Pathology (09/12/2020 2:45 PM EST) AP Specimen 09/12/2020 2:45 PM EST 09/12/2020 2:45 PM EST Narrative [facility] - 09/12/2020 2:45 PM EST Specimen requisition ordered. ??Separate Pathology report to follow Abiodun Chun MD PATHOLOGY/CYTOLOGY O RDERABLES Performing Organization Address [facility] de Phone Number [facility] [place] [address] * Surgical Pathology Report (09/12/2020 2:04 PM EST) Surgical Pathology Report [id number] ? Location: [facility]; [facility]; The signing pathologist has (i) examined the relevant preparation(s) for the specimen(s) and (ii) rendered or confirmed the diagnosis(es). . ?Surgical Pathology DIAGNOSIS Stomach, ??biopsy: Gastric antral and fundic gland mucosa with nonspecific reactive gastropathy. No H. pylori-like microorganism is seen. Electronically signed by: ??Chhaya Sandra MD Verified: ??09/20/2020 ?Pathologist Performed at: ??-[facility] Dept. of Pathology, [place], [place] SPECIMEN(S) SUBMITTED A - gastric biopsies. ??R/O H. Pylori, biopsy (Multiple) CLINICAL INFORMATION [place] SPECIMEN PROCESSING A - Labeled/Fixative: Gastric biopsies, rule out H. pylori, formalin. Quantity/Size: Multiple, ranging from 0.2-0.4 cm. Tissue Description: Soft, dowell tissues. Sections/Processi ng: Submitted en toto ??in 2 cassettes labeled A1-A2. ??sns [facility] 09/12/2020 2:04 PM EST Mane Avila MD PATHOLOGY/CYTOLOGY O RDERABLES Performing Organization Address [facility]/ZIP Co de Phone Number [facility] [place] [address] * Potassium (09/12/2020 1:11 PM EST) Potassium 3.9 3.5 - 5.0 mmol/L [facility] [...] MD CHEMISTRY ORDERABL ES Performing Organization Address [facility] Co de Phone Number [facility] [place] [address] * (ABNORMAL) Hemoglobin and Hematocrit, blood (09/12/2020 1:11 PM EST) Hemoglobin 8.4(L) 11.7 - 15.5 gm/dL [facility] Hematocrit 27.9(L) 35.7 - 45.8 % [facility] Blood specimen (specimen) 09/12/2020 1:11 PM EST 09/12/2020 1:17 PM EST Narrative Resulting Agency Comment Spec In Lab Amarilys Cerna MD HEMATOLOGY ORDERABLE S Performing Organization Address City/[facility]/ZIP Co de Phone Number [facility] [place] [address] * UPPER GI ENDOSCOPY (09/12/2020 12:57 PM EST) UPPER GI ENDOSCOPY [facility] Endoscopy Procedure Date: 09/12/2020 12:57 PM ? Patient Name: Shannan Chaudhary ? Date of : 1940 ? Age: 80 ? Order #: [id number] ? Instrument Name: [id number] ? Procedure: ? Upper GI endoscopy Indications: [...] * COLONOSCOPY (09/12/2020 12:56 PM EST) COLONOSCOPY [facility] Endoscopy Procedure Date: 09/12/2020 12:56 PM ? Patient Name: Shannan Chaudhary ? Date of : 1940 ? Age: 80 ? Order #: [id number] ? Instrument Name: [id number] ? Procedure: ? Colonoscopy Indications: ? Iron deficiency anemia Providers: ? Mane Avila MD, Asha Escobar. ? Isabel Powell Michael D. ? Mary [...] GENERAL SURGICAL ORD ERABLES Performing Organization Address City/[facility]/ZIP Co de Phone Number [employer] * POCT Glucose (09/12/2020 11:55 AM EST) POC Glucose 125 65 - 199 mg/dL [facility] Comment: Supplemental ranges: <140 mg/dL before meals <180 mg/dL all other times of the day Blood specimen (specimen) 09/12/2020 11:55 AM EST 09/12/2020 11:55 AM EST Abiodun Chun MD POINT OF CARE TEST O RDERABLES [facility] [place] [address] * POCT Glucose (09/12/2020 8:06 AM EST) POC Glucose 142 65 - 199 mg/dL [facility] Comment: Supplemental ranges: <140 mg/dL before meals <180 mg/dL all other times of the day Blood specimen (specimen) 09/12/2020 8:06 AM EST 09/12/2020 8:06 AM EST Abiodun Chun MD POINT OF CARE TEST O RDERABLES Performing Organization Address [facility] Co de Phone Number [facility] [place] [address] * (ABNORMAL) Hemoglobin and Hematocrit, blood (09/12/2020 7:47 AM EST) Pathologist [facility] Hemoglobin 8.0(L) 11.7 - 15.5 gm/dL [facility] Hematocrit 26.0(L) 35.7 - 45.8 % [facility] Blood specimen (specimen) 09/12/2020 7:47 AM EST 09/12/2020 7:52 AM EST Narrative Resulting Agency Comment Spec In Lab Amarilys Cerna MD HEMATOLOGY ORDERABLE S Performing Organization Address [facility] Phone Number [facility] [place] [address] * POCT Glucose (09/12/2020 4:38 AM EST) [facility] POC Glucose 173 65 - 199 mg/dL [facility] Comment: Supplemental ranges: <140 mg/dL before meals <180 mg/dL all other times of the day Blood specimen (specimen) 09/12/2020 4:38 AM EST 09/12/2020 4:38 AM EST Abiodun Chun MD POINT OF CARE TEST O RDROBIN Performing Organization Address [facility] Co de Phone Number [facility] [place] [address] * Differential, Automated (09/12/2020 1:43 AM EST) Neutrophils % 59.2 % [facility] Neutr Abs (ANC) 4.62 1.70 - 6.10 x10(3)/[facility] LABORATORY Lymphocytes % 25.0 % [facility] Lymphocytes Abs 2.0 0.9 - 3.2 x10(3)/[facility]ORY Monocytes % 10.8 % [facility] Monocyte Abs 0.8 0.3 - 0.9 x10(3)/[facility] Eosinophils % 3.7 % [facility] Eosinophils Abs 0.3 0.0 - 0.4 x10(3)/[facility] Basophils % 1.0 % [facility] Basophils Abs 0.1 0.0 - 0.1 x10(3)/[facility]OR[facility] Immature Gran % 0.30 % [facility] Comment: Immature granulocytes(IG's)percentage and absolute count will include metamyelocytes, myelocytes, and promyelocytes. Blood smears from CBCs yielding IG's will be scanned manually for concordance. If this scan disagrees with the automated IG or if promyelocytes are noted, a manual differential will be performed. Nanci Gran Abs 0.02 0.00 - 0.04 x10(3)/[facility] Blood specimen (specimen) 09/12/2020 1:43 AM EST 09/12/2020 1:48 AM EST Narrative Resulting Agency Comment Spec In Lab Carol Reyna MD HEMATOLOGY ORDERABLES [facility] [place] [address] * (ABNORMAL) Hemogram (09/12/2020 1:43 AM EST) WBC 7.8 4.0 - 9.5 x10(3)/[facility] RBC 4.35 4.00 - 5.21 x10(6)/[facility] Hemoglobin 9.3(L) 11.7 - 15.5 gm/dL [facility] Hematocrit 30.8(L) 35.7 - 45.8 % [facility] MCV 70.8(L) 82.6 - 94.4 fL [facility] MCH 21.4(L) 27.1 - 32.0 pg [facility] MCHC 30.2(L) 31.7 - 35.0 gm/dL [facility] Platelets 353 145 - 357 x10(3)/[facility] RDWSD 50.0(H) 37.0 - 46.0 fL [facility] RDWCV 19.9(H) 11.5 - 14.1 % [facility] MPV 10.3 7.6 - 12.9 [facility] nRBC % Auto 0.3 % [facility] nRBC Abs Auto 0.020(H) 0.000 - 0.000 x10(3)/[facility] Blood specimen (specimen) 09/12/2020 1:43 AM EST 09/12/2020 1:48 AM EST Narrative Resulting Agency Comment Spec In Lab Carol Reyna MD HEMATOLOGY ORDERABLES Performing Organization Address City/[facility]/ZIP Co de Phone Number [facility] [place] [address] * Magnesium (09/12/2020 1:43 AM EST) Magnesium 1.05 0.69 - 1.07 mmol/L [facility] Blood specimen (specimen) 09/12/2020 1:43 AM EST 09/12/2020 1:48 AM EST Narrative Resulting Agency Comment Spec In Lab Amarilys Cerna MD CHEMISTRY ORDERABLES Performing Organization Address City/[facility]/ZIP Co de Phone Number [facility] [place] [address] * (ABNORMAL) Hepatic Function Panel (09/12/2020 1:43 AM EST) Pathologist [facility] Total Protein 7.1 6.1 - 8.0 gm/dL [facility] Albumin 4.5 3.2 - 5.2 gm/dL [facility] AST 23 0 - 30 unit/L [facility] ALT 21 0 - 30 unit/L [facility] Alk Phos 120(H) 35 - 105 unit/L [facility] Total Bilirubin 2.7(H) 0.2 - 1.3 mg/dL [facility] Bili, Direct 0.3 0.0 - 0.3 mg/dL [facility] Blood specimen (specimen) 09/12/2020 1:43 AM EST 09/12/2020 1:48 AM EST Narrative Resulting Agency Comment Spec In Lab Amarilys Cerna MD CHEMISTRY ORDERABLES Performing Organization Address City/State/[facility] Co de Phone Number [facility] [place] [address] * (ABNORMAL) BMP w/fasting Glucose (09/12/2020 1:43 AM EST) Pathologist [facility] Glucose Fasting 136(H) 65 - 99 mg/dL [facility] Comment: ?Fasting* Glucose Interpretive Criteria [...] of Diabetes Mellitus, Position Statement from the [place] [employer]. ??Diabetes Care, Volume 33, Supplement 1, Aug 2009 BUN 17 8 - 18 mg/dL [facility] Creatinine 1.15 0.70 - 1.20 mg/dL [facility] Sodium 140 135 - 145 mmol/L [facility] Comment:result rechecked-[place] Potassium 4.2 3.5 - 5.0 mmol/L [facility] Comment: result rechecked-KS Please note: ??Patients with WBC >100,000 may have falsely elevated Potassium levels. ??For accurate Potassium quantification in these patients send serum separator tube (gold top) for subsequent determinations. ??Contact the Clinical Chemistry Laboratory if there are any questions. Chloride 102 98 - 107 mmol/L [facility] Comment:result rechecked-KS CO2 24 22 - 31 mmol/L [facility] Anion Gap 14 5 - 15 mmol/L [facility] Calcium 9.3 8.5 - 10.5 mg/dL [facility] Estimated GFR 45(L) >=60 mL/min/1. 73 m?? [facility] [...] In Lab Amarilys Cerna MD CHEMISTRY ORDERABLES [facility] [place] [address] * APTT (09/12/2020 1:43 AM EST) PTT 25 25 - 37 sec [facility] Comment: The PTT is NOT appropriate for heparin monitoring. Use the Anti-Xa level for heparin monitoring (HEP UFH) or LMWH monitoring (HEP LMW). A PTT less than 37 seconds generally indicates adequate hemostasis. Blood specimen (specimen) 09/12/2020 1:43 AM EST 09/12/2020 1:48 AM EST Narrative Resulting Agency Comment Spec In Lab Amarilys Cerna MD HEMATOLOGY ORDERABLE S Performing Organization Address [facility] de Phone Number [facility] [place] [address] * (ABNORMAL) Prothrombin Time (09/12/2020 1:43 AM EST) PT 12.9(H) 9.4 - 12.5 sec [facility] INR 1.1 [facility] Comment: An INR <2.0 [...] MD HEMATOLOGY ORDERABLE S Performing Organization Address [facility] de Phone Number [facility] [place] [address] * POCT Glucose (09/11/2020 11:48 PM EST) POC Glucose 121 65 - 199 mg/dL [facility] Comment: Supplemental ranges: <140 mg/dL before meals <180 mg/dL all other times of the day Blood specimen (specimen) 09/11/2020 11:48 PM EST 09/11/2020 11:48 PM EST Abiodun Chun MD POINT OF CARE TEST O RDERABLES Performing Organization Address City/[facility] Co de Phone Number [facility] [place] [address] * POCT Glucose (09/11/2020 8:19 PM EST) POC Glucose 179 65 - 199 mg/dL [facility] Comment: Supplemental ranges: <140 mg/dL before meals <180 mg/dL all other times of the day Blood specimen (specimen) 09/11/2020 8:19 PM EST 09/11/2020 8:19 PM EST Abiodun Chun MD POINT OF CARE TEST O RDERABLES Performing Organization Address [facility] de Phone Number [facility] [place] [address] * POCT Glucose (09/11/2020 7:40 PM EST) POC Glucose 181 65 - 199 mg/dL [facility] Comment: Supplemental ranges: <140 mg/dL before meals <180 mg/dL all other times of the day Blood specimen (specimen) 09/11/2020 7:40 PM EST 09/11/2020 7:40 PM EST Abiodun Chun MD POINT OF CARE TEST O RDERABLES Performing Organization Address [facility] de Phone Number [facility] [place] [address] * (ABNORMAL) Hemoglobin and Hematocrit, blood (09/11/2020 6:22 PM EST) Hemoglobin 8.2(L) 11.7 - 15.5 gm/dL [facility] Hematocrit 26.9(L) 35.7 - 45.8 % [facility] Blood specimen (specimen) 09/11/2020 6:22 PM EST 09/11/2020 6:55 PM EST Narrative Resulting Agency Comment Spec In Lab Amarilys Cerna MD HEMATOLOGY ORDERABLE S Performing Organization Address City/[facility]/ZIP Co de Phone Number [facility] [place] [address] * (ABNORMAL) POCT Glucose (09/11/2020 5:17 PM EST) POC Glucose 285(H) 65 - 199 mg/dL [facility] Comment: Supplemental ranges: <140 mg/dL before meals <180 mg/dL all other times of the day Blood specimen (specimen) 09/11/2020 5:17 PM EST 09/11/2020 5:17 PM EST Abiodun Chun MD POINT OF CARE TEST O RDERABLES Performing Organization Address [facility] Co de Phone Number [facility] [place] [address] * POCT Glucose (09/11/2020 12:16 PM EST) POC Glucose 120 65 - 199 mg/dL [facility] Comment: Supplemental ranges: <140 mg/dL before meals <180 mg/dL all other times of the day Blood specimen (specimen) 09/11/2020 12:16 PM EST 09/11/2020 12:16 PM EST Abiodun Chun MD POINT OF CARE TEST O RDERATOAN Performing Organization Address [facility] Co de Phone Number [facility] [place] [address] * (ABNORMAL) Potassium (09/11/2020 11:47 AM EST) Potassium 3.0(Criti ciera) 3.5 - 5.0 mmol/L [facility] Comment: Called by: miguelina, Read [...] Chun MD CHEMISTRY ORDERABLES Performing Organization Address [facility]/ZIP Co de Phone Number [facility] [place] [address] * (ABNORMAL) Hemoglobin and Hematocrit, blood (09/11/2020 11:47 AM EST) [facility] Signature Hemoglobin 8.4(L) 11.7 - 15.5 gm/dL [facility] Hematocrit 26.8(L) 35.7 - 45.8 % [facility] Blood specimen (specimen) 09/11/2020 11:47 AM EST 09/11/2020 12:19 PM EST Narrative Resulting Agency Comment Spec In Lab Amarilys Cerna MD HEMATOLOGY ORDERABLE S Performing Organization Address [facility] Co de Phone Number [facility] [place] [address] * (ABNORMAL) Ferritin (09/11/2020 11:47 AM EST) [facility] Ferritin 12(L) 30 - 400 ng/mL [facility] Comment: Pediatric reference ranges not verified at [facility], interpret with caution. Reference ranges for females greater than 50 years of age approach values for men, i.e., 30-400 ng/mL. Blood specimen (specimen) 09/11/2020 11:47 AM EST 09/11/2020 12:19 PM EST Narrative Resulting Agency Comment Spec In Lab Abiodun Chun MD CHEMISTRY ORDERABLES Performing Organization Address [facility]/ZIP Co de Phone Number [facility] [place] [address] * (ABNORMAL) Iron and TIBC (09/11/2020 11:47 AM EST) [facility] Signature Iron 33 30 - 150 mcg/dL [facility] TIBC 494(H) 250 - 450 mcg/dL [facility] Iron Saturation 7(L) 20 - 50 % [facility] Blood specimen (specimen) 09/11/2020 11:47 AM EST 09/11/2020 12:19 PM EST Narrative Resulting Agency Comment Spec In Lab Abiodun Chun MD CHEMISTRY ORDERABLES Performing Organization Address [facility] Co de Phone Number [facility] [place] [address] * Scan, Peripheral Blood (09/11/2020 5:36 AM EST) Pathologist [facility] Plat Estimate Normal [facility] RBC Morphology Abnormal [facility] Microcytes gtr than 10 /HPF [facility] Hypochromia Moderate [facility] Polychromasia Present >5/HPF [facility] Ovalocytes 1-5 /HPF [facility] Giant Platelets Less than 1 /HPF [facility] Blood specimen (specimen) 09/11/2020 5:36 AM EST 09/11/2020 6:02 AM EST Narrative Resulting Agency Comment Spec In Lab Carol Reyna MD HEMATOLOGY ORDERABLES Performing Organization Address [facility] Co de Phone Number [facility] [place] [address] * (ABNORMAL) Hemoglobin A1c (09/11/2020 5:36 AM EST) Hemoglobin A1C 8.3(H) 4.3 - 5.6 % [facility] Comment: Reference Range: 4.3 - [...] [id number] Est Avg Gluc See note mg/dL [facility] Comment: Estimated Average Glucose not [...] into estimated average glucose values. ??Diabetes Care 2008:31(8):[id number]. Blood specimen (specimen) 09/11/2020 5:36 AM EST 09/11/2020 6:02 AM EST Narrative Resulting Agency Comment Spec In Lab Amarilys Cerna MD CHEMISTRY ORDERABLES [facility] [place] [address] * Peripheral Smear Review (09/11/2020 5:36 AM EST) Periph Smear Rev See Comment [facility] Comment: When completed by the Pathologist, report [id number] will display under Hematopathology Reports. Blood specimen (specimen) 09/11/2020 5:36 AM EST 09/11/2020 6:02 AM EST Narrative Resulting Agency Comment Spec In Lab Amarilys Cerna MD HEMATOLOGY ORDERABLE S [facility] [place] [address] * Differential, Automated (09/11/2020 5:36 AM EST) Neutrophils % 63.0 % [facility] Neutr Abs (ANC) 4.84 1.70 - 6.10 x10(3)/[facility] Lymphocytes % 23.9 % [facility] Lymphocytes Abs 1.8 0.9 - 3.2 x10(3)/[facility] Monocytes % 8.7 % [facility] Monocyte Abs 0.7 0.3 - 0.9 x10(3)/[facility] Eosinophils % 3.0 % [facility] Eosinophils Abs 0.2 0.0 - 0.4 x10(3)/[facility] Basophils % 0.9 % [facility] Basophils Abs 0.1 0.0 - 0.1 x10(3)/[facility] Immature Gran % 0.50 % [facility] Comment: Immature granulocytes(IG's)percentage and absolute count will include metamyelocytes, myelocytes, and promyelocytes. Blood smears from CBCs yielding IG's will be scanned manually for concordance. If this scan disagrees with the automated IG or if promyelocytes are noted, a manual differential will be performed. Nanci Gran Abs 0.04 0.00 - 0.04 x10(3)/[facility] Blood specimen (specimen) 09/11/2020 5:36 AM EST 09/11/2020 6:02 AM EST Narrative Resulting Agency Comment Spec In Lab Carol Reyna MD HEMATOLOGY ORDERABLES [facility] [place] [address] * (ABNORMAL) Hemogram (09/11/2020 5:36 AM EST) WBC 7.7 4.0 - 9.5 x10(3)/[facility] RBC 3.95(L) 4.00 - 5.21 x10(6)/[facility] Hemoglobin 8.4(L) 11.7 - 15.5 gm/dL [facility] Hematocrit 27.2(L) 35.7 - 45.8 % [facility] MCV 68.9(L) 82.6 - 94.4 [facility] LABORATORY MCH 21.3(L) 27.1 - 32.0 pg [facility] MCHC 30.9(L) 31.7 - 35.0 gm/dL [facility] Platelets 290 145 - 357 x10(3)/[facility] RDWSD 48.3(H) 37.0 - 46.0 [facility]ORY RDWCV 19.8(H) 11.5 - 14.1 % [facility] MPV 9.9 7.6 - 12.9 [facility] nRBC % Auto 0.5 % [facility] nRBC Abs Auto 0.040(H) 0.000 - 0.000 x10(3)/[facility] Blood specimen (specimen) 09/11/2020 5:36 AM EST 09/11/2020 6:02 AM EST Narrative Resulting Agency Comment Spec In Lab Carol Reyna MD HEMATOLOGY ORDERABLES [facility] [place] [address] * Magnesium (09/11/2020 5:36 AM EST) Magnesium 0.82 0.69 - 1.07 mmol/L [facility] Blood specimen (specimen) 09/11/2020 5:36 AM EST 09/11/2020 6:02 AM EST Narrative Resulting Agency Comment Spec In Lab Amarilys Cerna MD CHEMISTRY ORDERABLES Performing Organization Address [facility] de Phone Number [facility] [place] [address] * (ABNORMAL) Hepatic Function Panel (09/11/2020 5:36 AM EST) Pathologist [facility] Total Protein 6.8 6.1 - 8.0 gm/dL [facility] Albumin 4.4 3.2 - 5.2 gm/dL [facility] AST 16 0 - 30 unit/L [facility] ALT 16 0 - 30 unit/L [facility] Alk Phos 123(H) 35 - 105 unit/L [facility] Total Bilirubin 2.6(H) 0.2 - 1.3 mg/dL [facility] Comment:result rechecked-KS Bili, Direct 0.2 0.0 - 0.3 mg/dL [facility] Blood specimen (specimen) 09/11/2020 5:36 AM EST 09/11/2020 6:02 AM EST Narrative Resulting Agency Comment Spec In Lab Amarilys Cerna MD CHEMISTRY ORDERABLES Performing Organization Address [facility] Co de Phone Number [facility] [place] [address] * (ABNORMAL) BMP w/fasting Glucose (09/11/2020 5:36 AM EST) Glucose Fasting 195(H) 65 - 99 mg/dL [facility] Comment: ?Fasting* Glucose Interpretive Criteria [...] of Diabetes Mellitus, Position Statement from the [place] [employer]. ??Diabetes Care, Volume 33, Supplement 1, Aug 2009 BUN 13 8 - 18 mg/dL [facility] Creatinine 0.90 0.70 - 1.20 mg/dL [facility] Sodium 140 135 - 145 mmol/L [facility] Potassium 3.2(L) 3.5 - 5.0 mmol/L [facility] Comment: Please note: ??Patients with WBC >100,000 may have falsely elevated Potassium levels. ??For accurate Potassium quantification in these patients send serum separator tube (gold top) for subsequent determinations. ??Contact the Clinical Chemistry Laboratory if there are any questions. Chloride 101 98 - 107 mmol/L [facility] CO2 27 22 - 31 mmol/L [facility] Anion Gap 12 5 - 15 mmol/L [facility] Calcium 9.1 8.5 - 10.5 mg/dL [facility] Estimated GFR 60 >=60 mL/min/1. 73 m?? [facility] [...] Narrative Resulting Agency Comment Spec In Lab Aamrilys Cerna MD CHEMISTRY ORDERABLES Performing Organization Address [facility] Co de Phone Number [facility] [place] [address] * (ABNORMAL) APTT (09/11/2020 5:36 AM EST) PTT 24(L) 25 - 37 sec [facility] Comment: The PTT is NOT appropriate for heparin monitoring. Use the Anti-Xa level for heparin monitoring (HEP UFH) or LMWH monitoring (HEP LMW). A PTT less than 37 seconds generally indicates adequate hemostasis. Blood specimen (specimen) 09/11/2020 5:36 AM EST 09/11/2020 6:02 AM EST Narrative Resulting Agency Comment Spec In Lab Amarilys Cerna MD HEMATOLOGY ORDERABLE S Performing Organization Address [facility] Co de Phone Number [facility] [place] [address] * Prothrombin Time (09/11/2020 5:36 AM EST) PT 12.5 9.4 - 12.5 sec [facility] INR 1.1 [facility] Comment: An INR <2.0 [...] MD HEMATOLOGY ORDERABLE S Performing Organization Address City/[facility]/ZIP Co de Phone Number [facility] [place] [address] * Smear Review Report (09/11/2020 5:30 AM EST) Smear Review Report [id number] ? Location: [facility]; [facility]; The signing pathologist has (i) examined the relevant preparation(s) for the specimen(s) and (ii) rendered or confirmed the diagnosis(es). . ? Smear Review DIAGNOSIS PERIPHERAL BLOOD, SMEAR: Moderate hypochromic microcytic anemia (see discussion) Electronically signed by: ??Raymundo Peña MD Verified: ??09/11/2020 ?Hematopathologist Performed at: ??-[facility] Dept. of Pathology, [place], [place] DISCUSSION This blood film is requested [...] for severe s/p BAV, ASCVD, and pAF. [facility] 09/11/2020 5:30 AM EST Carol Reyna MD PATHOLOGY/ CYTOLOGY ORDERABLES [facility] [place] [address] * (ABNORMAL) POCT Glucose (09/11/2020 5:07 AM EST) POC Glucose 210(H) 65 - 199 mg/dL [facility] Comment: Supplemental ranges: <140 mg/dL before meals <180 mg/dL all other times of the day Blood specimen (specimen) 09/11/2020 5:07 AM EST 09/11/2020 5:07 AM EST Amarilys Cerna MD POINT OF CARE TEST O ISAIAH Performing Organization Address [facility]/ZIP Co de Phone Number [facility] [place] [address] * Transfuse RBC (09/11/2020 4:45 AM EST) Amarilys Cerna MD NURSING TREATMENT OR DERABLES - BLOOD ADMIN * Transfuse RBC (09/11/2020 12:04 AM EST) Eamon Moser MD NURSING TREATMENT ORDERABLES - BLOOD ADMIN * (ABNORMAL) POCT Glucose (09/10/2020 10:45 PM EST) POC Glucose 225(H) 65 - 199 mg/dL [facility] Comment: Supplemental ranges: <140 mg/dL before meals <180 mg/dL all other times of the day Blood specimen (specimen) 09/10/2020 10:45 PM EST 09/10/2020 10:45 PM EST Amarilys Cerna MD POINT OF CARE TEST O ISAIAH Performing Organization Address City/[facility]/ZIP Co de Phone Number [facility] [place] [address] * Prepare RBC (09/10/2020 10:40 PM EST) Dispensed? Yes [facility] Blood specimen (specimen) 09/10/2020 10:40 PM EST 09/10/2020 10:46 PM EST Narrative Resulting Agency Comment Spec In Lab Amarilys Cerna MD BLOOD BANK PRODUCT O RDERABLES [facility] [place] [address] * COVID-19 PCR (09/10/2020 9:44 PM EST) SARS-CoV-2 RNA PCR Not Detected Not Detected [facility] Comment: This result should be [...] using the Simplexa COVID-19 Direct Assay by [employer] as authorized by the FDA issued Emergency [...] fact sheets at the following FDA website: https://www.fda.gov/medical-devices/aanonxglijt-hloelwt-7527-aufxn-91-vanliqjoq- use-a ihtkdymwxelux-udasqwe-fsrmhri/tplzn-ksvlbhccfwz-ouqy SARS-CoV-2 Source [employer] [facility] Nasopharyngeal swab (specimen) 09/10/2020 9:44 PM EST 09/10/2020 10:03 PM EST Comment:Symptoms->Surveillan ce Narrative Resulting Agency Comment Spec In Lab Eamon Moser MD MICROBIOLOGY - NERAL ORDERABLES Performing Organization Address [facility] Co de Phone Number [facility] [place] [phone] * Prepare RBC (09/10/2020 7:40 PM EST) Dispensed? Yes [facility] Blood specimen (specimen) 09/10/2020 7:40 PM EST 09/10/2020 7:40 PM EST Eamon Moser MD BLOOD BANK PRODUC T ORDERABLES Performing Organization Address [facility] Co de Phone Number [facility] [place] [phone] * Differential, Automated (09/10/2020 7:25 PM EST) Neutrophils % 63.6 % [facility] Neutr Abs (ANC) 4.04 1.70 - 6.10 x10(3)/[facility] LAB[facility]ORY Lymphocytes % 24.1 % [facility] Lymphocytes Abs 1.5 0.9 - 3.2 x10(3)/[facility] Monocytes % 8.8 % [facility] Monocyte Abs 0.6 0.3 - 0.9 x10(3)/[facility] Eosinophils % 2.4 % [facility] Eosinophils Abs 0.2 0.0 - 0.4 x10(3)/[facility] Basophils % 0.8 % [facility] Basophils Abs 0.0 0.0 - 0.1 x10(3)/[facility] Immature Gran % 0.30 % [facility] Comment: Immature granulocytes(IG's)percentage and absolute count will include metamyelocytes, myelocytes, and promyelocytes. Blood smears from CBCs yielding IG's will be scanned manually for concordance. If this scan disagrees with the automated IG or if promyelocytes are noted, a manual differential will be performed. Nanci Gran Abs 0.02 0.00 - 0.04 x10(3)/[facility] Blood specimen (specimen) 09/10/2020 7:25 PM EST 09/10/2020 7:36 PM EST Narrative Resulting Agency Comment Spec In Lab Osito Calabrese Jr., MD HEMATOLOGY ORDERA BLES [facility] [place] [address] * (ABNORMAL) Hemogram (09/10/2020 7:25 PM EST) WBC 6.4 4.0 - 9.5 x10(3)/mc L [facility] RBC 2.75(L) 4.00 - 5.21 x10(6)/ L [facility] Hemoglobin 5.2(Critic al) 11.7 - 15.5 gm/dL [facility] Comment: This result has been called to ION SALAZAR by JOB GAYTAN on 09 10 2020 at 2030, and has been read back. Hematocrit 18.2(L) 35.7 - 45.8 % [facility] MCV 66.2(L) 82.6 - 94.4 fL [facility] MCH 18.9(L) 27.1 - 32.0 pg [facility] MCHC 28.6(L) 31.7 - 35.0 gm/dL [facility] Platelets 264 145 - 357 x10(3)/mc L [facility] RDWSD 41.0 37.0 - 46.0 fL [facility] RDWCV 17.3(H) 11.5 - 14.1 % [facility] MPV 10.1 7.6 - 12.9 fL [facility] nRBC % Auto 0.5 % [facility] nRBC Abs Auto 0.030(H) 0.000 - 0.000 x10(3)/mc L [facility] Blood specimen (specimen) 09/10/2020 7:25 PM EST 09/10/2020 7:36 PM EST Narrative Resulting Agency Comment Spec In Lab Osito Calabrese Jr., MD HEMATOLOGY ORDERA BLES [facility] [place] [address] * (ABNORMAL) APTT (09/10/2020 7:25 PM EST) PTT 24(L) 25 - 37 sec [facility] Comment: The PTT is NOT appropriate for heparin monitoring. Use the Anti-Xa level for heparin monitoring (HEP UFH) or LMWH monitoring (HEP LMW). A PTT less than 37 seconds generally indicates adequate hemostasis. Blood specimen (specimen) 09/10/2020 7:25 PM EST 09/10/2020 7:36 PM EST Narrative Resulting Agency Comment Spec In Lab Eamon Moser MD HEMATOLOGY ORDERA BLES Performing Organization Address [facility] Co de Phone Number [facility] [place] [address] * (ABNORMAL) Prothrombin Time (09/10/2020 7:25 PM EST) PT 13.8(H) 9.4 - 12.5 sec [facility] INR 1.2 [facility] Comment: An INR <2.0 [...] MD HEMATOLOGY ORDERA BLES Performing Organization Address [facility] de Phone Number [facility] [place] [address] * ABORH Recheck Status (09/10/2020 6:15 PM EST) ABORH Type Recheck Completed [facility] Blood specimen (specimen) 09/10/2020 6:15 PM EST 09/10/2020 6:37 PM EST Narrative Resulting Agency Comment Spec In Lab Osito Calabrese Jr., MD BLOOD BANK LAB OR DERABLES Performing Organization Address [facility] Co de Phone Number [facility] [place] [address] * Antibody screen (09/10/2020 6:15 PM EST) Ab Screen Interp Negative [facility] Expires at [id number] on: 09/13/2020 [facility] Blood specimen (specimen) 09/10/2020 6:15 PM EST 09/10/2020 6:37 PM EST Narrative Resulting Agency Comment Spec In Lab Osito Calabrese Jr., MD BLOOD BANK LAB OR DERABLES Performing Organization Address City/[facility]/ZIP Co de Phone Number [facility] [place] [address] * ABO/Rh Typing (09/10/2020 6:15 PM EST) ABORH Type O Pos [facility] Blood specimen (specimen) 09/10/2020 6:15 PM EST 09/10/2020 6:37 PM EST Narrative Resulting Agency Comment Spec In Lab Osito Calabrese Jr., MD BLOOD BANK LAB OR DERABLES Performing Organization Address City/[facility] Co de Phone Number [facility] [place] [address] * SCAN DOC: LAB (09/10/2020 12:00 AM EST) Narrative 09/10/2020 12:00 AM EST Ordered by an unspecified provider. Scanning Provider MEDIA MGR SCAN EXT O RDR/RSLT documented in this encounter Visit Diagnoses Not on filedocumented in this encounter Admitting Diagnoses Diagnosis Anemia [...] PRN, Starting on Sun09/17/20 at 0637, Until Sun09/18/20 at 1608, High Blood Pressure, for SBP >160 insulin glargine (Lantus) (100 unit/mL) subcutaneous injection vial 10 Units 10 Units, Subcutaneous, DAILY, First dose on Sun09/11/20 at 0900, Until Discontinued, Routine Given 09/18/2020 8:20 AM EST 10 Units Given 09/17/2020 8:07 AM EST 10 Units Given 09/16/2020 8:44 AM EST 10 Units insulin lispro (HumaLOG) (100 unit/mL) subcutaneous injection vial 1-6 Units 1-6 Units, Subcutaneous, EVERY 4 HOURS SCHEDULED, First dose on Sun09/11/20 at 0500, Until Discontinued, CORRECTION BOLUS [1-6 [...] 3 patch, Transdermal, DAILY, First dose on Sun09/11/20 at 0415, Until Discontinued, Apply patch(es) for [...] Santacruz RN) 0820 (Given - Provider: Ren Philippe, LYLA) ferrous gluconate (Fergon) tablet 324 mg 324 [...] RN) 0807 (Given - Provider: Ashley Santacruz, RN) 0820 (Given - Provider: Ren Philippe, LYLA) insulin lispro (HumaLOG) (100 unit/mL) subcutaneous injection [...] Fang Kerr RN)1709 (Given - Provider: Fang Kerr, RN)2058 (Given - Provider: Juan Ballesteros RN) 0005 (Given - Provider: Juan Ballesteros RN)0331 (Given - Provider: Juan Ballesteros RN)0807 (Given - Provider: Ashley Santacruz, LYLA)1208 (Given - Provider: Ashley Santacruz, RN)1649 (Given - Provider: Ashley Santacruz, LYLA)202 (Given - Provider: Skyla Zuniga RN) 0058 (Given - Provider: Skyla Zuniga RN)0403 (Given - Provider: Skyla Zuniga, LYLA)0820 (Given - Provider: Ren Philippe RN)1312 (Given - Provider: Ren Philippe RN) lidocaine (Lidoderm) 5 % topical patch 3 patch(Linked Group 2) 3 patch, Transdermal, DAILY, First dose on Sun09/11/20 at 0415, Until Discontinued, Apply patch(es) for 12 hours, and then remove for 12 hours., Routine 1035 (Not Given - Provider: Jos Santos RN - Reason: Order parameters not met) 0808 (Patch Applied - Provider: Ashley Santacruz RN) 0821 (Patch Applied - Provider: Ren Philippe RN) lidocaine (Lidoderm) topical patch REMOVAL(Linked Group 2) Transdermal, EVERY 24 HOURS, First dose on Sun09/11/20 at 2100, Until Discontinued, Remove lidocaine 5% [...] on Sun09/18/20 at 0900, Until Discontinued, Routine 0820 (Given [...] 100, Routine 0656 (Given - Provider: Luci Boyle, LYLA) pantoprazole EC (Protonix) tablet 40 mg 40 mg, Oral, 2 TIMES DAILY, First dose on 09/13/20 at 2100, Until Discontinued, DO NOT CRUSH OR OPEN, Routine 0837 (Given - Provider: Thanh Orlando, RN)205 (Given - Provider: Juan Ballesteros RN) 0809 (Given - Provider: Ashley Santacruz RN)202 (Given - Provider: Skyla Zuniga, LYLA) 0820 (Given - Provider: Ren Philippe, LYLA) polyethylene glycoL (Miralax) packet 17 g 17 [...] 1709 (Given - Provider: Fang Kerr RN) 1649 (Given - Provider: Ashley Santacruz RN) senna-docusate (Pericolace) 8.6-50 mg per tablet 2 tablet 2 tablet, Oral, DAILY, First dose on Noreen 09/16/20 at 2100, Until Discontinued, Post-op day 1, Routine 2100 (Not Given - Provider: Juan Ballesteros RN - Reason: Patient/family refused) 2021 (Given - Provider: Skyla Zuniga, LYLA) sodium chloride 0.9 % (flush) flush 5 [...] documented as of this encounter Care Teams Job Coaching Relationship Specialty Start Date End Date Reshma Baig MD [address] [place] [address] PCP - General Family Medicine 11/08/18 06/23/21 documented as of this encounter
--- OUTSIDE RECORDS SUMMARY | 2024-03-17 14:21 | XMS_ITS | Encounter Summary ---
Author Organization [facility] [address] Care Team Providers Care Ultrasonic Solderer Name Role Phone Reshma Baig MD Primary Care Provider [phone] Encounter Details Date Type Department Care Team (Late st Contact Info) Description 09/10/2020 Telephone Cardiology at [address] [phone] Ryan Marques, RN Social History Tobacco Use [...] Telephone Encounter - Ryan Marques, RN - 09/10/2020 3:[address]. Valentin's in person direction. Reports call with critical value Hgb - just notedon CBC done earlier today. Requests assistance in directing patient to return immediately to the [facility] for evaluation and treatment. Lab values not yet available in [facility] at the time of this call and this writing. Call placed to Ms. Moody. Pleasant connection. Agrees to return as instructed. (ETA 15-20 mins of 16:00 today). ED notification made. Brief report, pleasant connection with Dr. Alexander. Labs now available - as below: Results for LAKESHIA MOODY ( ) as of 09/10/2020 15:46 Ref. Range 09/10/2020 14:42 WBC Latest Ref Range: 4.0 - 9.5 x10(3)/mcL 7.8 RBC Latest Ref Range: 4.00 - 5.21 x10(6)/mcL 2.90 (L) Hemoglobin Latest Ref Range: 11.7 - 15.5 gm/dL 5.4 (CRIT) Hematocrit Latest Ref Range: 35.7 - 45.8 % 19.2 (L) MCV Latest Ref Range: 82.6 - 94.4 fL 66.2 (L) MCH Latest Ref Range: 27.1 - 32.0 pg 18.6 (L) MCHC Latest Ref Range: 31.7 - 35.0 gm/dL 28.1 (L) RDWSD Latest Ref Range: 37.0 - 46.0 fL 41.5 RDWCV Latest Ref Range: 11.5 - 14.1 % 17.3 (H) Platelets Latest Ref Range: 145 - 357 x10(3)/mcL 313 MPV Latest Ref Range: 7.6 - 12.9 fL 10.5 nRBC % Auto Latest Units: % 0.4 nRBC Abs Auto Latest Ref Range: 0.000 - 0.000 x10(3)/mcL 0.030 (H) Dilan Marques, clinical rehabilitation specialist Team Nurse [facility] Amb[facility] Cardiology documented in this encounter Plan of Treatment Not on file documented as of this encounter Visit Diagnoses Not on filedocumented in this encounter Care Teams Ultrasonic Solderer Relationship Specialty Start Date End Date Reshma Baig MD [address] [place] [address] PCP - General Family Medicine 11/08/18 06/23/21 documented as of this encounter
--- OUTSIDE RECORDS SUMMARY | 2024-03-17 14:21 | XMS_ITS | Encounter Summary ---
Author Organization Formerly [facility] [place] [address] Care Team Providers Care Chipper Feeder Name Role Phone Reshma Baig MD Primary Care Provider [phone] Reason for Visit * Auth/Cert Specialty Diagnoses / Procedures Referred By Malini carlson Referred To Contact Diagnoses BILIARY COLIC Procedures PRO LAP, CHOLECYSTECTOMY/GRAPH LAPAROSCOPIC CHOLECYSTECTOMY WITH CHOLANGIOGRAM (WRVU 11.47) Referral ID Status Reason Start Date Expiration Date Visits Re quested Visits Authorized [id number] 1 1 Encounter Details Date Type Department Care Team (Late st Contact Info) Description 07/15/2020 3:06 PM EST Anesthesia Event [place] [address] Haider Couch DO [facility] [place] [address] Dong Aburto MD [facility] [place] [address] Anesthesia Record Procedure Summary Procedure Name Responsible Anesthesiologist Anesthesia Start Time Anesthesia Stop Time LAPAROSCOPIC CHOLECYSTECTOMY WITH CHOLANGIOGRAM (WRVU 11.47) (Abdomen) Haider Couch DO 07/15/20 1506 07/15/20 1726 Events Date Time Event Comment 07/15/2020 1434 1506 AN Verify 1506 Start 1506 An Start Data 1531 An Induction 1534 An Intubation 1539 Anesthesia Ready 1557 Quick Note Insufflation 1707 Extubation/LMA Out 1721 Quick Note Covid test sent 1721 an stop data 1726 Recovery or ICU Handoff Brigitte ent care was transferred to the destination unit staff after review of the patient's medical history, current anesthetic/surgical status and plan, according to the Provider Handoff Checklist. 1726 Stop Meds Name Total fentaNYL 100 mcg Propofol 50 mg Rocuronium 50 mg Ondansetron 8 mg Glycopyrrolate 0.2 mg ceFAZolin 2 g PHENYLephrine INF 1,600 mcg HYDROmorphone 0.4 mg acetaminophen IV 1,000 mg Sugammadex 400 mg lactated ringers infusion 1,200 mL * Agents Name O2 Air N2O Sevoflurane (et) * Blood No blood administrations on file. Lines, Drains, and Airways Type Details Placement Removal Drain/Device Site 04/22/20; 0932; Righ t; upper; abdomen; pigtail (10 [place] Anna Tube); Dr. Collins; Sterile prep and drape, Sterile technique; Lidocaine 1%; Other; Exchanged with 10 fr tube; 07/15/20; 17104/22/20 0932 by Bobbi Fernandez RN 07/15/20 1711 by Fang Rodgers RN Drain/Device Site 04/28/20; 0956; Righ t; upper; abdomen; collapsible closed device (10 [place] pigtail); Dr. Collins; 07/15/20; 1711 04/28/20 0956 by Bobbi Fernandez RN 07/15/20 1711 by Fang Rodgers RN Incision 05/19/20; 1029; uppe r quadrant; Inferior to Anna Tube, Drain Removal Site; 07/15/20; 1711 05/19/20 1029 by Ginna Romano RN 07/15/20 1711 by Fang Rodgers RN Arterial Line 07/15/20; 1521; radi al artery, left (US utilized ); 22 gauge; N.Earely; Sterile Prep, Sterile Gloves; 07/15/20; 1800 07/15/20 1521 by Rosa Hampton 07/15/20 1800 by Peri Coburn RN ETT Mask Ventilation: Ea sy (1); ETT Type: Cuffed, Oral; ETT Size: 7 mm; Notes: Asleep, Pre-O2, Stylette; Attempts: 2; Laryngoscopy Grade: 3; ETT Placement Verified By: Auscultation, Capnometry, Visual; Secured at Teeth: 22 cm; Inserted by: Rocio, 1st attempt by ASHTYN Shell; Removal Date: 07/15/20; Removal Time: 170607/15/20 153 by Rosa Hampton 07/15/20 170 by Rosa Hampton (RETIRED) Peripheral IV Line - Single Lumen 07/15/20; 1550; metacarpal vein (top of hand), right; [id number] catheter system; 18 gauge; Sumaya; tolerated well; 07/15/20; 191207/15/20 1550 by Rosa Hampton 07/15/20 191 by Peri Coburn RN Incision 07/15/20; 1558; umbilical area; laparoscopic puncture; [...] Abdirahman Chavez 04/24/22 1715 by Dulce Kingston documented in this encounter Social History Tobacco [...] OR Notes * Anesthesia Postprocedure Evaluation - Haider Couch DO - 07/15/2020 6:00 PM EST Department of Anesthesiology Post-procedure Note Patient: Shannan Moody Procedure Summary Date: 07/15/20 Room / Location: [facility] OR [facility] MAIN OR Anesthesia Start: 1506 Anesthesia Stop: 1726 Procedure: LAPAROSCOPIC CHOLECYSTECTOMY WITH CHOLANGIOGRAM (WRVU ) (N/A Abdomen) Diagnosis: (BILIARY COLIC) Surgeon: Hong Rosenthal MD Responsible Provider: Haider Couch DO Anesthesia Type: general ASA Status: 3 All Anesthesia Providers: Anesthesiologist: Haider Couch DO PIZZA DRIVER: Haleigh Green CRNA Student Nurse Pattern Grader Cutter: Rosa Hampton Vitals Value Taken Time BP 138/51 07/15/20 1745 Temp Pulse 56 07/15/20 1756 Resp 17 07/15/20 1756 SpO2 95 % 07/15/20 1800 Pain Level 0 07/15/20 1745 Vitals shown include unvalidated device data. Patient Location: PACU[facility] Level of Consciousness: Conscious but Sleepy Pain Management: Satisfactory Analgesia PONV: None Cardiovascular Status: At Baseline and Hemodynamically Stable Respiratory Status: At Baseline and Room Air Postoperative Fluid Status: Intravascular EUvolemia Possible Anesthetic Complications: NONE apparent at time of evaluation Final Primary Anesthesia Type: General (The anesthetic type performed was the same as planned.) Comments: Haider Couch DO * Anesthesia Preprocedure Evaluation - Haider Couch DO - 07/14/2020 3:44 PM EST Pre-Anesthesia Evaluation for: Shannan Moody a 79 y.o. female. Procedure(s): LAPAROSCOPIC CHOLECYSTECTOMY WITH CHOLANGIOGRAM (WRVU 11) Patient Active Problem List Diagnosis ??? Obesity (BMI 30.0-34.9) ??? Severe aortic stenosis ??? Aortic valve stenosis Added automatically from request for surgery [id number] ??? 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 04/20/20 TTE SUMMARY: ??1. Mild concentric left [...] low stroke volume index (23 ml/m2). ??? Cholecystitis ??? Type 2 diabetes mellitus with circulatory disorder, with long-term current use of insulin ??? Hypertension ??? Hyperlipidemia ??? Arthritis Past Medical History: Diagnosis Date ??? Actinic keratosis 08/31/2011 ??? Diabetes ??? Seborrheic keratosis 08/31/2011 ??? Severe aortic stenosis Past Surgical History: Procedure Laterality Date ??? CT PERITONEAL DRAINAGE 04/28/2020 CT Guided Drain Peritoneal 04/28/2020 [facility] RAD CAT SCAN ??? HYSTERECTOMY, VAGINAL ??? IR BILIARY TUBE CHECK/CHANGE/REMOVE 06/03/2020 IR Biliary Tube Check/Change/Remove 06/03/2020 Jos Collins, DO [facility] INTERVENTIONL RAD ??? IR CHOLECYSTOSTOMY TUBE PLACEMENT 04/22/2020 IR Cholecystostomy Tube Placement 04/22/2020 Jos Collins, DO [facility] INTERVENTIONL RAD ??? IR DRAIN CHECK/CHANGE/REMOVE 05/19/2020 IR Drain Check/Change/Remove 05/19/2020 oJs Collins, DO [facility] INTERVENTIONL RAD ??? PRO UPPER GI ENDOSCOPY, DIAGNOSTIC N/A 05/03/2020 EGD, UPPER GI ENDOSCOPY performed by Brigitte Graf MD at [facility] ENDOSCOPY Social History Tobacco Use ??? Smoking status: Never Smoker ??? Smokeless tobacco: Never Used Substance Use Topics ??? Alcohol use: Yes Comment: occassional Social History Substance and Sexual Activity Drug Use Never No Known Allergies Medications: MAR and/or home medications have been reviewed. Physical Exam: No data found. There is no height or weight on file to calculate BMI. Airway Assessment: Mallampati: II TM distance: >3 FB Neck ROM: full Cardiovascular Assessment: Rhythm: regular Rate: normal (+) murmur Pulmonary Assessment: pulmonary exam normal Dental Assessment: - normal exam Misc Assessment: Patient is wearing No contact(s). IV access: Peripheral line Anesthesia Plan: ASA 3 general, with a(n) intravenous induction Shannan Moody is a 79 y.o. 80 kg female presenting for laparoscopic cholecystectomy. Pt has a PMH of DM2 (A1c [...] Tolerated MAC for upper endoscopy without issue. No airway history available. Labs were reviewed Allergies: No Known Allergies NPO Status: Appropriate Anesthetic Plan: GA with ETT, preinduction phenylephrine gtt for maintenance of afterload Pre-induction arterial line monitoring in addition to standard ASA monitoring Adequate IV access Region - Other Informed Consent: Anesthetic plan and risks discussed with patient. Plan discussed with PIZZA DRIVER. PAT Clinic Note documented in this encounter Plan of Treatment Not on file documented as of this encounter Visit Diagnoses Not on filedocumented in this encounter Administered Medications Inactive Administered Medications - up to 3 most recent administrations Medication Order MAR Action Action Date Dose Rate Site acetaminophen (Ofirmev) injection Administer over 15 Minutes, PRN, Starting on Noreen 07/15/20 at 1630, Until Noreen 07/15/20 at 1732, Anesthesia Intra-op, Routine Given 07/15/2020 4:30 PM EST 1,000 mg ceFAZolin (Ancef) 1 g in dextrose 5% 50 mL infusion PRN, Starting on Noreen 07/15/20 at 1534, Until Noreen 07/15/20 at 1732, Administer over 30 Minutes, Anesthesia Intra-op Given 07/15/2020 3:34 PM EST 2 g fentaNYL 50 mcg/mL multi-dose injection PRN, Starting on Noreen 07/15/20 at 1520, Until Noreen 07/15/20 at 1732, Anesthesia Intra-op, Routine Given 07/15/2020 3:20 PM EST 100 mcg glycopyrrolate (ROBINUL) multi-dose injection PRN, Starting on Noreen 07/15/20 at 1555, Until Noreen 07/15/20 at 1732, Anesthesia Intra-op, Routine Given 07/15/2020 3:55 PM EST 0.2 mg HYDROmorphone (DILAUDID) injection PRN, Starting on Noreen 07/15/20 at 1630, Until Noreen 07/15/20 at 1732, Anesthesia Intra-op, Routine Given 07/15/2020 4:44 PM EST 0.2 mg Given 07/15/2020 4:30 PM EST 0.2 mg lactated ringers infusion 1,000 mL, at 100 mL/hr, Intravenous, CONTINUOUS, Starting on Noreen 07/15/20 at 1415, Until Noreen 07/15/20 at 1914, Day of Surgery (Day of Procedure) New Bag 07/15/2020 4:46 PM EST New Bag 07/15/2020 3:06 PM EST ondansetron (ZOFRAN) injection PRN, Starting on Noreen 07/15/20 at 1705, Until Noreen 07/15/20 at 1732, Anesthesia Intra-op, Routine Given 07/15/2020 5:05 PM EST 8 mg PHENYLephrine (CHOCO-SYNEPHRINE) 20 mg in sodium chloride 250 mL (standard ADULT & Pedi greater than 20kg) infusion CONTINUOUS PRN, Starting on Noreen 07/15/20 at 1531, Until Noreen 07/15/20 at 1732, Anesthesia Intra-op, Routine Restarted 07/15/2020 4:54 PM EST 10 mcg/min 7.5 mL/hr Rate/Dose Change 07/15/2020 4:27 PM EST 10 mcg/min 7.5 mL/ hr Rate/Dose Change 07/15/2020 4:13 PM EST 25 mcg/min 18.8 mL /hr propofoL (Diprivan) 10 mg/mL bolus injection (Anesthesia) PRN, Starting on Noreen 07/15/20 at 1531, Until Noreen 07/15/20 at 1732, Anesthesia Intra-op Given 07/15/2020 3:31 PM EST 50 mg rocuronium (ZEMURON) multi-dose injection PRN, Starting on Noreen 07/15/20 at 1532, Until Noreen 07/15/20 at 1732, Anesthesia Intra-op, Routine Given 07/15/2020 3:32 PM EST 50 mg sugammadex (BRIDION) 100 mg/mL injection PRN, Starting on Noreen 07/15/20 at 1702, Until Noreen 07/15/20 at 1732, Anesthesia Intra-op, Routine Given 07/15/2020 5:02 PM EST 400 mg documented in this encounter Care Teams Chipper Feeder Relationship Specialty Start Date End Date Reshma Baig MD [address] [place] [address] PCP - General Family Medicine 11/08/18 06/23/21 documented as of this encounter
--- OUTSIDE RECORDS SUMMARY | 2024-03-17 14:21 | XMS_ITS | Encounter Summary ---
Author Organization [facility] Address [facility] [place] [address] Care Team Providers Care Rn Integrity Name Role Phone Reshma Baig MD Primary Care Provider [phone] Reason for Visit * Auth/Cert Specialty Diagnoses / Procedures Referred By Malini carlson Referred To Contact Diagnoses BILIARY COLIC Procedures PRO LAP, CHOLECYSTECTOMY/GRAPH LAPAROSCOPIC CHOLECYSTECTOMY WITH CHOLANGIOGRAM (WRVU 11.47) Referral ID Status Reason Start Date Expiration Date Visits Re quested Visits Authorized [id number] 1 1 Encounter Details Date Type Department Care Team (Late Contact Info) Description 07/15/2020 6:05 PM EST - 07/15/2020 9:19 PM EST [place] [address] [place] [address] LAPAROSCOPIC CHOLECYSTECTOMY WITH CHOLANGIOGRAM (WRVU 11.47) Social History Tobacco Use Types Packs/Day Years [...] Sign Reading Time Taken Comments Blood Pressure 160/57 07/15/2020 6:44 PM EST Pulse 55 07/15/2020 5:45 PM EST Temperature 37.1 ??C (98.8 ??F) 07/15/2020 5:26 PM ES T Respiratory Rate 16 07/15/2020 6:44 PM EST Oxygen Saturation 95% 07/15/2020 6:44 PM EST Inhaled Oxygen Concentration - - Weight - - Height - - Body Mass Index - - documented in this encounter Discharge Instructions * Discharge Instructions* Peri Coburn RN - 07/15/2020 6:47 PM EST POST ANESTHESIA INSTRUCTIONS Go home, rest, use caution on stairs. Change positions slowly. Do not smoke if you are alone. Diet light to regular as tolerated today. If nausea occurs start with clear liquids and progress slowly. No driving, operating machinery, alcoholic beverages and no important decisions for 24 hours. Monitor IV site for signs and symptoms of infection: increasing redness, swelling, foul drainage, if occurs contact M.D. Patients who have had endotrachial tubes (this tube, used by anesthesia department, is passed down your throat after you are asleep, to ensure safe air passage during your operation). A sore throat is normal due to the tube. Cold liquids or soothing lozenges will help ease the discomfort. The generalized muscle aches are due to the medication given to you just before the tube is inserted. As the medication wears off, you may develop muscle soreness, which usually goes away in 12-24 hours. * Patient Instructions* Aime Zhou MD - 07/15/2020 5:58 PM EST Discharge Instructions You were were admitted and treated for the following diagnosis: Cholecystitis (please ensure that you attach pt education on this diagnosis under the multidisciplinary section) CALL YOUR PHYSICIAN IF: 1. You have a fever greater than 101F 2. You have diarrhea or vomiting for >24 hours, or stop having bowel movements and passing flatus 3. You have worsening pain, not controlled with your pain medication. 4. You develop redness, swelling, or new drainage from your wounds Prescriptions:No new medication Resume home med today. Resume Plavix Sunday07/17/2020 Follow up: Below Non-steroidal anti-inflammatories (NSAIDS) such as aspirin, Aleve and ibuprofen (Advil, Motrin) aremedications that reduce pain and inflammation. To reduce your chance of side effects, it is recommended that you use Tylenol as needed for pain and then NSAIDs and use narcotics as the last resort. Alternative means of pain relief such as rest and relaxation, positioning, as well as decreasing stimulants such as coffee, tea, soft drinks, and nicotine may also help to alleviate pain. If you continue to experience significant pain 4-5 days after your discharge, it may be necessary to be re-evaluated by your physician. Driving Restrictions: - No driving if you are too sore to enter or exit your vehicle comfortably, or if you are too sore to easily check your blind spot. No driving while using prescription pain medications Activities: - Discuss return to work or school with your provide at your follow up appointment in the trauma clinic. - Increase your activity slowly. If it hurts don't do it, but try again the following day. - You may tire easily, so frequent naps may be necessary.. - Talk with your doctor about when you can return to work or school. - You may take a shower but have someone nearby in case you need help. Diet: Eat a well-balanced diet. Fresh fruits, vegetables and fiber-containing foods are recommended. Thiswill assist in wound healing. Recommendations: - Take it easy for two weeks. Remember, If it hurts, don't do it. - Take several slow, short walks each day for the first two weeks, and gradually increase your distance. We recommend at least 4 times a day. Wound Care: - You can shower per usual routine - Do not submerge wounds under water (avoid spas, pools and bathtubs) until fully healed. - Do not use creams, oils, or ointments on the wound. - See follow-up appointments for removal of sutures/saima. Comfort: - Some soreness can be expected. - Take your pain medication as needed and prescribed. - Taper use of pain medication as pain lessens. Follow up appointments: 1. You will have follow-up appointments at [facility] as indicated in the ???Future Appointments and Orders?? section of your discharge summary. If X-rays or CT scans have been ordered for you prior to this appointment you will need to report to the Radiology department, desk 3T, 1 hour prior to your clinic appointment time. 2. If you do not have a scheduled follow-up appointment listed at the time of discharge, you will be notified of your scheduled appointment on the next business day. Please call [phone] if you do not hear from us by that time, as your timely follow-up is very important to us. Your care was managed by the Trauma and Acute Care Surgery Team at [facility]. If you have any questions or concerns, please feel free to contact us. Provider Contact Information: General Surgery: [facility] (after business hours): Primary Care Physician: Reshma Baig MD Future Appointments Date Time Provider Department Pillow 09/10/2020 11:30 AM ECHO [facility]ULAR [facility] Card [facility] 09/10/2020 1:00 PM Sera Valentin MD [facility] CARD [address] [place] [address] documented in this encounter Medications at Time of Discharge Medication Sig Dispensed Refills Start Date End Date rosuvastatin (Crestor) 20 mg Tablet Take 1 [...] Brand, 250.02. 1 each 0 12/02/2013 Lancets [facility] Use twice daily or as needed. 200 each 3 12/02/2013 metoprolol succinate XL (Toprol-XL) 100 mg Tablet Sustained Release 24 hr Take 2 tablets by mouth nightly. 30 tablet 12 06/25/2020 09/18/2020 oxyCODONE (Roxicodone) 5 mg Tablet Take 1 tablet by mouth every 4 hours as needed for Pain. 3 tablet 06/04/2020 09/10/2020 clopidogreL (Plavix) 75 mg Tablet Take 1 tablet by mouth daily. 90 tablet 3 05/08/2020 08/30/2021 losartan (Cozaar) 25 mg Tablet Take 1 tablet by mouth daily. 90 tablet 3 05/09/2020 09/18/2020 aspirin 81 mg Tablet, Chewable Take 81 mg by mouth daily. 30 tablet 3 05/09/2020 09/10/2020 VICTOZA 2-ISABEL 0.6 mg/0.1 mL (18 mg/3 mL) Pen Injector inject 1.2 milligram subcutaneously daily 0 11/06/2018 09/10/2020 fluocinolone acetonide (SYNALAR) 0.01 % Solution Apply twice daily to itchy areas and scalp 60 mL 3 12/30/2018 09/11/2020 metroNIDAZOLE (METROCREAM) 0.75 % Cream Apply twice daily to face after washing 45 g 3 12/30/2018 09/11/2020 dulaglutide 0.75 mg/0.5 mL Pen Injector Inject 0.75 mg subcutaneously once a week. 4 Syringe 2 02/28/2017 09/10/2020 documented as of this encounter Progress Notes * Fang Rodgers RN - 07/15/2020 5:53 PM EST Arrived to PACU with Dr Khoa George if stable to dc through Same day after [place] removed 1755 Awakesnd alert Systolic BP 140-150 No pain Bladder scan with [address] Rosenthal For Same Day discharge order Called report to LYLA Macias documented in this encounter H&P Notes * Hong Rosenthal MD - 07/15/2020 2:05 PM EST The patient's history and physical exam (office visit note 06/18/2020) have been reviewed and completed and there has been interval change from that of the pre- operative history and psychical exam completed within the past 30 days, but there is no change in today's procedural plan. The changes are her cardiac optimization and catheterization. She has continued her ASA and held her Plavix as instructed. Her daughter was without questions. To OR for laparoscopic cholecystectomy with possible intra-operative cholangiogram documented in this encounter Miscellaneous Notes * Op Note - Hong Rosenthal MD - 07/15/2020 6:04 PM EST [facility] Operative Note Name: Shannan Moody : 1940 Date of surgery: 07/15/2020 Surgeon: Hong Rosenthal MD tutoring assistant: None Preoperative dx: Chronic cholecystitis with indwelling percutaneous cholecystostomy tube Postoperative dx: Same Procedure: Laparoscopic cholecystectomy Indication: This is an 79 y.o. year old female who presented in March with acute calculous cholecystitis. Her course was prolonged by septic and/or cardiogenic shock, Afib with RVR, aeHFpEF, aortic stenosis, NSTEMI, and UGIB secondary to esophagitis and anticoagulation She underwent percutanous cho lecystostomy tube placement given her cardiac comorbidities. She underwent cardiac catheterization in March and in late May underwent balloon aortic valvuloplasty. She has been maintained on dual antiplatelet therapy due to the recent stent. After discussion of medical and surgical treatment options, including the risks/benefits/expected outcome of each, surgery was decided upon. After discussion with Dr Valentin/interventional cardiology, she was scheduled for cholecystectomy and her Plavix was held. The ASA was continued..Laparoscopic cholecystectomy was recommended and the benefitsand risks were explained. Specifically the risk of bile leak, injury to the biliary tree, visceral injury, conversion to open operation, bleeding, and possible need for reoperation were discussed. The expected recovery periods with both laparoscopic and open surgery were also reviewed. Findings: - Percutaneous cholecystostomy was removed at the start of the procedure - Perihepatic inflammatory adhesions to the abdominal wall and diaphragm. These were divided as necessary to allow for liver retraction and gallbladder visualization. - Omental adhesions to the leading edge and undersurface of the liver, the percutaneous cholecystostomy tract, and to the gallbladder. These were divided to allow for mobilization and visualization. - Critical view of the cystic duct, cystic artery, and inferior edge of the right lobe of the liver up into the gallbladder fossa was obtained. - 5 mm clips were used for cystic duct and cystic artery ligation. - 5 mm clips were placed on the percutaneous cholecystostomy tract to prevent intra-abdominal spillage/contamination - Wound protection bag was utilized for gallbladder removal via the umbilical port - EBL: 25 mL - Wound class: 3 (contaminated) Anesthesia: General with OETT Specimen removed: Gallbladder Operative narrative: Patient was positioned and secured while awake in attempt to minimize the risk of neuropraxia and joint injury. Antibiotics were dosed for skin prophylaxis. Sequential compression devices were applied prior to induction of anesthesia. Skin was prepped using Chloroprep tinted prep stick. Draping wasperformed in the usual sterile fashion. Local was injected prior to skin incisions. A 12 mm infraumbilical port was placed by incising the skin and using Girish technique to enter the peritoneal cavity. An 0 Vicryl was placed on either side of the fascial opening to anchor the port during the procedure and close the site at the completion of the procedure. Port with blunt trocar was inserted and p neumoperitoneum established. A combination of 10 mm - 30 degree and 5 mm - 30 degree scopes were utilized during the case. Three 5 mm subcostal ports were placed in the usual positions by incising the skin and passing port with protected sharp trocar under direct visualization. Lighting was reducedand bed repositioned into Trendelenburg and angled with the left side down. Careful blunt and electrocautery dissections were used to free the omentum from the gallbladder and liver surface. Nicky-hepatic inflammatory adhesions were taken down as needed with careful blunt and electrocautery dissections. Fundic and infundibular retraction was established with blunt grasper. Using a combination of careful blunt dissection and judicious electrocautery, critical view of cystic duct, cystic artery, and inferior edge of the right lobe of the liver was obtained. This view extended up to the fusion ofthe gallbladder and liver within the gallbladder fossa to ensure complete visualization and correctanatomic identification. A 5 mm clip english lecturer was used to place 2 clips each on the patient side of the cystic duct and cystic artery followed by 1 clip on the specimen side. Clips were also placed onthe percutaneous cholecystostomy tract to prevent intra-abdominal spillage/contamination These structures were then sharply divided. Continued dissection with the same techniques was then used to resect the gallbladder from the gallbladder fossa. Gallbladder was then removed via the umbilical port using specimen bag. After laparoscopic view was reestablished, suction probe was used to aspirated all free fluid in the RUQ. Pneumoperitoneum was then reduced to approximate central venous pressure and inspection of all dissected areas confirmed hemostasis. The subcostal ports were then removed under direct visualization with hemostasis noted. The umbilical port was then removed and pneumoperitoneum completely reduced. The 0 Vicryl sutures were then tied to form a horizontal mattress stitch to close the fascial opening. Digital palpation ensured complete closure. Skin of all incisions was then closed with simple interrupted deep dermal stitches of 0000 Monocryl. The skin was then washed anddried. All incisions were then dressed with Dermabond. Thank you for allowing me to participate in the care of your patient. Hong Rosenthal MD 07/15/2020 6:05 PM Attestation: Case Date: 07/15/2020 I performed this procedure without the involvement of a resident. Hong Rosenthal MD 07/15/2020 documented in this encounter Plan of Treatment Not on file documented as of this encounter Procedures Procedure Name Priority Date/Time Associated Diagnosis Comments RAPID COVID-19 PCR ([facility]/APD/[facility]) Routine 07/15/2020 5:20 PM EST SPECIMEN TO PATHOLOGY Routine 07/15/2020 4:53 PM EST SURGICAL PATHOLOGY REPORT Routine 07/15/2020 4:50 PM EST POCT GLUCOSE Routine 07/15/2020 4:42 PM EST Lap, Cholecystectomy/Gra ph (15035) 07/15/2020 3:05 PM EST BILIARY COLIC POCT GLUCOSE Routine 07/15/2020 2:07 PM EST documented in this encounter Results * COVID-19 PCR (07/15/2020 5:20 PM EST) SARS-CoV-2 RNA PCR Not Detected Not Detected [facility] Comment: This result should be interpreted [...] using the Simplexa COVID-19 Direct Assay by [employer] as authorized by the FDA issued Emergency [...] Department of Pathology and Laboratory Medicine at [facility], certified under the Clinical Laboratory Improvement [...] webpage under Information for Healthcare Professionals (https://www.cdc.gov/coronavirus/2019-ncov/hcp/index.html). SARS-CoV-2 Source [employer] [facility] Nasopharyngeal swab (specimen) 07/15/2020 5:20 PM EST 07/15/2020 5:39 PM EST Comment:Symptoms->Surveillan ce Narrative Resulting Agency Comment Spec In Lab Hong Rosenthal MD MICROBIOLOGY - GENER AL ORDERABLES Performing Organization Address [facility] [place] [address] * Specimen to Pathology (07/15/2020 4:53 PM EST) AP Specimen 07/15/2020 4:53 PM EST 07/15/2020 4:53 PM EST Narrative [facility] - 07/15/2020 4:53 PM EST Specimen requisition ordered. ??Separate Pathology report to follow Hong Rosenthal MD PATHOLOGY/CYTOLOGY O RDERABLES Performing Organization Address [facility] [place] [address] * Surgical Pathology Report (07/15/2020 4:50 PM EST) Surgical Pathology Report [id number] ? Location: [facility]; [place]; A The signing pathologist has (i) examined the relevant preparation(s) for the specimen(s) and (ii) rendered or confirmed the diagnosis(es). . ?Surgical Pathology DIAGNOSIS Gallbladder: - Chronic cholecystitis and cholelithiasis. Electronically signed by: ??Kareem Causey MD Verified: ??07/21/2020 ?Pathologist Performed at: ??-[facility] Dept. of Pathology, [place], [place] SPECIMEN(S) SUBMITTED A - Gallbladder, excision (1) CLINICAL INFORMATION Biliary colic SPECIMEN PROCESSING A - Labeled/Fixative: Gallbladder, fresh. Quantity/Size: ??Single, 5.7 x 3.6 x 1.7 cm. Specimen Description: Gallbladder, received intact. Serosa: Unremarkable Adventitia: Unremarkable Lumen contents: Yellow, viscous, bile. Gallstones: Present: Multiple, black gallstones averaging, 0.9 x 0.7 x 0.2 cm Mucosa: Velvety Wall: 0.3 cm thick. Duct: 0.4 cm. Ink Designation: The hepatic margin is inked black Sections/Processi ng: Pl[employer] Parts Fabricator Trimmer sections in 1 cassettes as follows: ?A1: ??cystic duct margin and patient services representative mucosa. ??AJ [facility] 07/15/2020 4:50 PM EST Hong Rosenthal MD PATHOLOGY/CYTOLOGY O RDERABLES Performing Organization Address [facility] Co de Phone Number [facility] [place] [address] * POCT Glucose (07/15/2020 4:42 PM EST) POC Glucose 163 65 - 199 mg/dL [facility] Comment: Supplemental ranges: <140 mg/dL before meals <180 mg/dL all other times of the day Blood specimen (specimen) 07/15/2020 4:42 PM EST 07/15/2020 4:42 PM EST Hong Rosenthal MD POINT OF CARE TEST O RDERABLES Performing Organization Address [facility] Co de Phone Number [facility] [place] [address] * POCT Glucose (07/15/2020 2:07 PM EST) POC Glucose 147 65 - 199 mg/dL [facility] Comment: Supplemental ranges: <140 mg/dL before meals <180 mg/dL all other times of the day Blood specimen (specimen) 07/15/2020 2:07 PM EST 07/15/2020 2:07 PM EST Hong Rosenthal MD POINT OF CARE TEST O RDERABLES [facility] [place] [address] documented in this encounter Visit Diagnoses Not on filedocumented in this encounter Administered Medications Inactive Administered Medications - up to 3 most recent administrations Medication Order MAR Action Action Date Dose Rate Site BUpivacaine (PF) (MARCAINE) 0.25 % (2.5 mg/mL) injection ONCE PRN, Starting on Noreen 07/15/20 at 1602, Until Noreen 07/15/20 at 2114, Intra-Operative (Intra-Procedure), Routine Given 07/15/2020 4:02 PM EST 3 mLs 19- Surgical Site lidocaine-EPINEPHrine 1 %-1:100,000 injection ONCE PRN, Starting on Noreen 07/15/20 at 1604, Until Noreen 07/15/20 at 2114, Intra-Operative (Intra-Procedure), Routine Given 07/15/2020 4:04 PM EST 3 mLs 19- Surgical Site documented in this encounter Active and Recently Administered Medications Times are shown in EST. Scheduled Medication Order 07/13/2020 07/14/2020 07/15/2020 ceFAZolin (Ancef) 2 g in dextrose 5% 100 mL infusion 2 g, Intravenous, PATTERN MECHANIC TO O.R., 1 dose, On Noreen 07/15/20 at 1430, Administer over 30 Minutes, Indication for (Active or Suspected): Prophylaxis 1430 (Due) Continuous Medication Order 07/13/2020 07/14/2020 07/15/2020 lactated ringers infusion (CANCELED) 1,000 mL, at 100 mL/hr, Intravenous, CONTINUOUS, Starting on Noreen 07/15/20 at 1415, Until Noreen 07/15/20 at 1914, Day of Surgery (Day of Procedure) 1506 (New Bag - Prov ider: Rosa Hampton)1646 (New Bag - Provider: Rosa Hampton)1725 (Anesthesia Volume Adjustment - Provider: Rosa Hampton) PRN Medication Order 07/13/2020 07/14/2020 07/15/2020 BUpivacaine (PF) (MARCAINE) 0.25 % (2.5 mg/mL) injection (CANCELED) ONCE PRN, Starting on Noreen 07/15/20 at 1602, Until Noreen 07/15/20 at 2114, Intra-Operative (Intra-Procedure), Routine 1602 (Given - Provid er: Hong Rosenthal MD - Comment: 30 ml 0.25% Sensorcaine plain mixed with 30 ml Lidocaine 1% with Epinepherine 1:100,000) lidocaine-EPINEPHrine 1 %-1:100,000 injection (CANCELED) ONCE PRN, Starting on Noreen 07/15/20 at 1604, Until Noreen 07/15/20 at 2114, Intra-Operative (Intra-Procedure), Routine 1604 (Given - Provid er: Hong Rosenthal MD - Comment: 30 ml 0.25% Sensorcaine plain mixed with 30 ml Lidocaine 1% with Epinepherine 1:100,000) documented in this encounter Care Teams Rn Integrity Relationship Specialty Start Date End Date Reshma aBig MD [address] [place] [address] PCP - General Family Medicine 11/08/18 06/23/21 documented as of this encounter
--- OUTSIDE RECORDS SUMMARY | 2024-03-17 14:21 | XMS_ITS | Encounter Summary ---
Author Organization [facility] Address [facility] [place] [address] Care Team Providers Care Licensed Weigher Name Role Phone Reshma Baig MD Primary Care Provider [phone] Encounter Details Date Type Department Care Team (Late st Contact Info) Description 07/29/2020 Telephone General Surgery at [facility] [place] [address] Hong Rosenthal MD [facility] [place] [address] Social History Tobacco Use Types Packs/Day Years [...] encounter Miscellaneous Notes * Telephone Encounter - Hong Rosenthal MD - 07/29/2020 8:49 AM EST I called her this morning to follow up on her surgical recovery and discuss the pathology results (benign). Pathology: Gallbladder: - Chronic cholecystitis and cholelithiasis. She sounded to be recovering as expected. 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 We discussed symptoms to watch for, limit intake of triggering foods, and that the biliary tree slowly develops a reservoir function. In time mild symptoms are expected to resolve. Cholestyramine can be used for symptoms not responsive to dietary modification that are effecting nutrition and/or QOL. She reported a CT in the interval since surgery. This was for continued lower back and RUQ pain. 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 I will obtain those images for my review. We discussed pain management. She has been given/recommended a cocktail of narcotic, muscle relaxant, APAP, and multiple different NSAIDs. I advised she use scheduled APAP (500-100mg PO q6hrs) and a single NSAID PRN with meals. We discussed bleeding/gastric/renal issues with NSAIDS and DAPT. We discussed SE profile/addiction and poor efficacy with narcotics and muscle relaxants. We discussed post-surgical pain lasting from weeks to months, being self-limited, and that time was the best and safest medicine. Follow up appointment will be arranged 09/10/20, at which time she is also scheduled to see Dr Valentin and cardiology. documented in this encounter Plan of Treatment Not on file documented as of this encounter Visit Diagnoses Diagnosis S/P laparoscopic cholecystectomy Other postprocedural status documented in this encounter Care Teams Licensed Weigher Relationship Specialty Start Date End Date Reshma Baig MD [address] [place] [address] PCP - General Family Medicine 11/08/18 06/23/21 documented as of this encounter
--- OUTSIDE RECORDS SUMMARY | 2024-03-17 14:21 | XMS_ITS | Encounter Summary ---
Author Organization [facility] [place] [address] Care Team Providers Care Parts Department Manager Name Role Phone Reshma Baig MD Primary Care Provider [phone] Encounter Details Date Type Department Care Team (Late st Contact Info) Description 07/27/2020 Ancillary Procedure Radiology Library at [facility] [place] [address] Hong Rosenthal MD [facility] [place] [address] Social History Tobacco Use Types Packs/Day Years [...] Associated Diagnosis Comments FILM LIBRARY STORAGE ONLY CT SPINE Routine 07/27/2020 12:00 AM EST documented in this encounter Results * Film Library- Storage Only CT Spine (07/27/2020 12:00 AM EST) Narrative [facility] - 07/30/2020 9:13 AM EST This exam is auto-finalizing. It's purpose is for storage only. Hong Rosenthal MD [facility] FILM LIBRARY ORD ERABLES Performing Organization Address City/State/[facility] Co de Phone Number [place], [place] documented in this encounter Visit Diagnoses Not on filedocumented in this encounter Care Teams Parts Department Manager Relationship Specialty Start Date End Date Reshma Baig MD [address] [place] [address] PCP - General Family Medicine 11/08/18 06/23/21 documented as of this encounter
--- OUTSIDE RECORDS SUMMARY | 2024-03-17 14:21 | XMS_ITS | Encounter Summary ---
Author Organization [facility] Address [facility] [place] [address] Care Team Providers Care Technical Training Instructor Name Role Phone Regis Muller MD Primary Care Provider [phone] Reason for Visit * Reason Comments Medication Refill Encounter Details Date Type Department Care Team (Late st Contact Info) Description 08/31/2020 [place] [address] Davon Leung MD [facility] GENERAL [place] [address] Social History Tobacco Use Types Packs/Day Years [...] Diagnoses Not on filedocumented in this encounter Additional Health Concerns Infection Onset Date Last Indicated Resolved Time Rule Out COVID-19 09/11/2020 09/11/2020 09/11/2020 10:46 PM EST documented as of this encounter Care Teams Technical Training Instructor Relationship Specialty Start Date End Date Regis Muller MD [address] [place], [place] [address] PCP - General Emergency Medicine 06/24/21 documented as of this encounter
--- OUTSIDE RECORDS SUMMARY | 2024-03-17 14:21 | XMS_ITS | Encounter Summary ---
Author Organization [facility] [place] [address] Care Team Providers Care Ultra Sound Technician Name Role Phone Reshma Baig MD Primary Care Provider [phone] Reason for Referral * Diagnostic Test (Routine) - Closed Specialty Diagnoses / Procedures Referred By Malini carlson Referred To Contact Cardiology Diagnoses Aortic valve stenosis, etiology of cardiac valve disease unspecified Procedures Echocardiogram Transthoracic([facility] or [facility]) Sera Valentin MD [facility] [place] [address] [facility] [place] [address] Referral ID Status Reason Start Date Expiration Date V isits Requested Visits Authorized [id number] Closed Specialty Service Requested 2020 03/06/2021 1 1 Reason for Visit * Auth/Cert Specialty Diagnoses / Procedures Referred By Malini carlson Referred To Contact Diagnoses Anemia Procedures EMERGENCY IPI Referral ID Status Reason Start Date Expiration Date Visits Re quested Visits Authorized [id number] 1 1 Encounter Details Date Type Department Care Team (Latest Contact Info) Description 09/10/2020 10:50 AM EST - 09/10/2020 4:41 PM EST Hospital Encounter [place] [address] Sera Valentin MD [facility] [place] [address] Aortic valve stenosis, etiology of cardiac valve disease unspecified Discharge Disposition: Home Social History Tobacco Use [...] mL 2 12/10/2017 blood sugar diagnostic strips (Electron DatabaseUCH ULTRA TEST) Strip 1 each by Other [...] mouth daily. 90 tablet 3 05/09/2020 09/18/2020 fluocinolone acetonide (SYNALAR) 0.01 % Solution Apply twice daily to itchy areas and scalp 60 mL 3 12/30/2018 09/11/2020 metroNIDAZOLE (METROCREAM) 0.75 % Cream Apply twice daily to face after washing 45 g 3 12/30/2018 09/11/2020 documented as of this encounter Plan of Treatment Not on file documented as of this encounter Procedures Procedure Name Priority Date/Time Associated Diagnosis Comments ECHO COMPLETE Routine 09/10/2020 12:20 PM EST Aortic valve stenosis, etiology of cardiac valve disease unspecified documented in this encounter Results * ECHO COMPLETE (09/10/2020 12:20 PM EST) EF 65 HEARTYecuris SYSTEM Anatomical Region Laterality Modality Other 09/10/2020 Narrative 09/10/2020 12:48 PM EST Procedure: ?Transthoracic Echocardiogram Patient: ?WILLIAM Francis ? (Age): 1940(80y) Med Rec#: ? [id number] ?Sex: ?F ? Site Loc: ? DH ?Ht / Wt: ??157(cm)/80(kg) Pt. Loc: ?Echo Lab ?BSA: ?1.81 Study Date: ?? 09/10/2020 ?Pt. Type: Outpatient Tape: ? Referring: ASHLEYJ Reading: Darwin Connors ([id number]) Donor Relations Manager: Deb Curtis Diagnosis: *Nonrheumatic aortic (valve) stenosis (I35.0) BP: ? 112/46 SUMMARY: 1. The left ventricular chamber size [...] is no evidence of a pericardial effusion. Findings ? : Left Ventricle: ? The left ventricular chamber size is normal. ?Moderate concentric left ventricular hypertrophy is observed. ?There is no evidence of LVOT obstruction. ?No ventricular septal defect is visualized. ?There is normal global left ventricular systolic function. ?The quantitative left ventricular ejection fraction by biplane Olivera's method is 65%. ?There are no left ventricular segmental wall motion abnormalities. ?Left ventricular diastolic function is abnormal. ?Doppler assessment is consistent with elevated left sided filling pressure. Left Atrium: ? The left atrium is severely dilated.52 ml/m2 ?The inter-atrial septum appears intact without evidence of shunting. Right Ventricle: ? The right ventricle is normal in size. ?Right ventricular global systolic function is normal. ?The estimated pulmonary artery systolic pressure is 43 mmHg. ?The estimated right atrial pressure is 3 mmHg. Right Atrium: ? The right atrium is normal in size. Aortic Valve: ? The aortic valve is tricuspid. ?The aortic valve leaflets are severely thickened. ?Systolic excursion of the aortic valve cusps is reduced. ?The peak instantaneous trans-valvular gradient across ??the aortic valve is 43 mmHg. ?The mean trans-valvular gradient across ??the aortic valve is 28 mmHg. ?The calculated aortic valve area is 0.8 cm2. ?There is severe aortic valve stenosis.DOI .3, SVI 38.7 ?There is a trace of aortic regurgitation present. Mitral Valve: ? The mitral valve leaflets are moderately thickened. ?There is mitral annular calcification. ?The mean gradient across the mitral valve is 8 mmHg.at 83 bpm ?There is moderate mitral stenosis present.PHT is approx 80 ms. Tricuspid Valve: ? The tricuspid valve leaflets are morphologically normal. ?There is no tricuspid valve stenosis. ?There is mild (1+/4+) tricuspid regurgitation present. Pulmonic Valve: ? The pulmonic valve appears normal in structure and function. Pericardium: ? The pericardium appears normal and there is no evidence of a pericardial effusion. Aorta: ? The aortic root is normal in size. ?The ascending aorta is normal in size. Pulmonary Artery: ? The main pulmonary artery appears normal. Venous: ? The inferior vena cava appears normal in size. ?There is a greater than 50% respiratory change in the inferior vena cava dimension. Misc: ? Two-dimensional echo, spectral Doppler and color Doppler performed. Chambers 2D ?Value ?Units (Range) ? IVSd (2D) ? 1.58 ? cm ? LVPWd (2D) ?1.58 ? cm ? IVS:LVPW ratio (2D) 1 ?ratio ? RWT (2D) ?0.81 ? ratio ? RWT PW (2D) ? 0.81 ? ratio ? LVIDd (2D) ?3.91 ? cm ? LVIDs (2D) ?3.01 ? cm ? LVIDd (2D) index ?2.16 ? cm/m2 ? LVIDs (2D) index ?1.66 ? cm/m2 ? LV FS (2D) ?23.02 ?% ? EF Teichholz (2D) ?? 46.79 ?% ? Ao root diameter (2D3 ?cm (2.1 - 3.6) ? Ascending Ao ?3 ?cm (2 - 3.5) ? Volumes/Mass ?Value ?Units (Range) ? LA Area 4 CH ?25.5 ? cm2 (<21) ? LA ESV BP (A/L) inde52.4 ? ml/m2 ? RA AREA 4CH ? 13.1 ? cm2 ? LA ESV BP (MOD) inde52.43 ?ml/m2 ? LV ESV SP 4CH (MOD) 25.9 ? ml ? LV ESV SP 2CH (MOD) 21.5 ? ml ? LV EDV BP ? 69.3 ? ml ? LV ESV BP ? 23.8 ? ml ? LV EDV BP index ? 38.33 ?ml/m2 ? LV ESV BP index ? 13.16 ?ml/m2 ? BP EF (MOD) ? 65.66 ?% ? LV mass (2D) ?244.89 ? g ? LV mass (2D) index ??135.44 ? g/m2 ? Diastolic/Systolic Function ?Value ?Units (Range) ? MV E-wave Vmax ?2.04 ? m/sec ? MV deceleration awih886 ?msec ? MV A-wave Vmax ?1.15 ? m/sec ? MV E:A ratio ?1.77 ? ratio ? LV septal e' Vmax ?? 0.06 ? m/sec ? LV lateral e' Vmax ??0.05 ? m/sec ? LV average e' Vmax ??0.06 ? m/sec ? LV E:e' septal ratio34 ? ratio ? LV E:e' lateral rati40.8 ? ratio ? LV average E:e' rati37.09 ?ratio ? Aortic Valve ?Value ?Units (Range) ? AV Vmax ? 3.29 ? m/sec ? AV VTI ?87.9 ? cm ? AV peak gradient ?43 ? mmHg ? AV mean gradient ?28 ? mmHg ? LVOT diameter ? 1.8 ?cm ? LVOT Vmax ? 1.07 ? m/sec ? LVOT VTI ?27.4 ? cm ? LVOT peak gradient ??5 ?mmHg ? LVOT mean gradient ??3 ?mmHg ? DOI (VTI) ? 0.31 ? ratio ? DOI (Vmax) ?0.33 ? ratio ? SV LVOT ? 69.69 ?ml ? CORINE (continuity Vmax0.8 ?cm2 ? CORINE (continuity Vmax0.46 ? cm2/m2 ? CORINE (continuity VTI)0.79 ? cm ? CORINE (continuity VTI)0.44 ? cm2/m2 ? Mitral Valve ?Value ?Units (Range) ? MV Vmax ? 2.36 ? m/sec ? MV VTI ?68.8 ? cm ? MV peak gradient ?22.28 ?mmHg ? MV mean gradient ?8 ?mmHg ? MV PHT ?80 ? msec ? MVA (PHT) ? 2.18 ? cm2 ? MVA (continuity VTI)1.01 ? cm2 ? Tricuspid Valve ?Value ?Units (Range) ? TR Vmax ? 3.16 ? m/sec ? TR peak gradient ?39.94 ?mmHg ? RAP ? 3 ?mmHg ? RVSP ?43 ? mmHg ? This report has been electronically signed by: Darwin Connors M.D. ? 09/10/2020 12:48:11 Images reviewed and interpretation verified [facility] Procedure Note Darwin Connors MD - 09/10/2020 Procedure: Transthoracic Echocardiogram Patient: WILLIAM Francis DOB(Age): 1940(80y) Med Rec#: [id number] Sex: F Site Loc: [facility] Ht / Wt: 157(cm)/80(kg) Pt. Loc: Echo Lab BSA: 1.81 Study Date: 09/10/2020 Pt. Type: Outpatient Tape: Referring: [facility] Reading: Darwin Connors ([id number]) Donor Relations Manager: Deb Curtis Diagnosis: *Nonrheumatic aortic (valve) stenosis (I35.0) BP: 112/46 SUMMARY: 1. The left ventricular chamber size [...] is no evidence of a pericardial effusion. Findings : Left Ventricle: The left ventricular chamber size is normal. Moderate concentric left ventricular hypertrophy is observed. There is no evidence of LVOT obstruction. No ventricular septal defect is visualized. There is normal global left ventricular systolic function. The quantitative left ventricular ejection fraction by biplane Olivera's method is 65%. There are no left ventricular segmental wall motion abnormalities. Left ventricular diastolic function is abnormal. Doppler assessment is consistent with elevated left sided filling pressure. Left Atrium: The left atrium is severely dilated.52 ml/m2 The inter-atrial septum appears intact without evidence of shunting. Right Ventricle: The right ventricle is normal in size. Right ventricular global systolic function is normal. The estimated pulmonary artery systolic pressure is 43 mmHg. The estimated right atrial pressure is 3 mmHg. Right Atrium: The right atrium is normal in size. Aortic Valve: The aortic valve is tricuspid. The aortic valve leaflets are severely thickened. Systolic excursion of the aortic valve cusps is reduced. The peak instantaneous trans-valvular gradient across the aortic valve is 43 mmHg. The mean trans-valvular gradient across the aortic valve is 28 mmHg. The calculated aortic valve area is 0.8 cm2. There is severe aortic valve stenosis.DOI .3, SVI 38.7 There is a trace of aortic regurgitation present. Mitral Valve: The mitral valve leaflets are moderately thickened. There is mitral annular calcification. The mean gradient across the mitral valve is 8 mmHg.at 83 bpm There is moderate mitral stenosis present.PHT is approx 80 ms. Tricuspid Valve: The tricuspid valve leaflets are morphologically normal. There is no tricuspid valve stenosis. There is mild (1+/4+) tricuspid regurgitation present. Pulmonic Valve: The pulmonic valve appears normal in structure and function. Pericardium: The pericardium appears normal and there is no evidence of a pericardial effusion. Aorta: The aortic root is normal in size. The ascending aorta is normal in size. Pulmonary Artery: The main pulmonary artery appears normal. Venous: The inferior vena cava appears normal in size. There is a greater than 50% respiratory change in the inferior vena cava dimension. Misc: Two-dimensional echo, spectral Doppler and color Doppler performed. Chambers 2D Value Units (Range) IVSd (2D) 1.58 cm LVPWd (2D) 1.58 cm IVS:LVPW ratio (2D) 1 ratio RWT (2D) 0.81 ratio RWT PW (2D) 0.81 ratio LVIDd (2D) 3.91 cm LVIDs (2D) 3.01 cm LVIDd (2D) index 2.16 cm/m2 LVIDs (2D) index 1.66 cm/m2 LV FS (2D) 23.02 % EF Teichholz (2D) 46.79 % Ao root diameter (2D3 cm (2.1 - 3.6) Ascending Ao 3 cm (2 - 3.5) Volumes/Mass Value Units (Range) LA Area 4 CH 25.5 cm2 (<21) LA ESV BP (A/L) inde52.4 ml/m2 RA AREA 4CH 13.1 cm2 LA ESV BP (MOD) inde52.43 ml/m2 LV ESV SP 4CH (MOD) 25.9 ml LV ESV SP 2CH (MOD) 21.5 ml LV EDV BP 69.3 ml LV ESV BP 23.8 ml LV EDV BP index 38.33 ml/m2 LV ESV BP index 13.16 ml/m2 BP EF (MOD) 65.66 % LV mass (2D) 244.89 g LV mass (2D) index 135.44 g/m2 Diastolic/Systolic Function Value Units (Range) MV E-wave Vmax 2.04 m/sec MV deceleration [id number] msec MV A-wave Vmax 1.15 m/sec MV E:A ratio 1.77 ratio LV septal e' Vmax 0.06 m/sec LV lateral e' Vmax 0.05 m/sec LV average e' Vmax 0.06 m/sec LV E:e' septal ratio34 ratio LV E:e' lateral rati40.8 ratio LV average E:e' rati37.09 ratio Aortic Valve Value Units (Range) AV Vmax 3.29 m/sec AV VTI 87.9 cm AV peak gradient 43 mmHg AV mean gradient 28 mmHg LVOT diameter 1.8 cm LVOT Vmax 1.07 m/sec LVOT VTI 27.4 cm LVOT peak gradient 5 mmHg LVOT mean gradient 3 mmHg DOI (VTI) 0.31 ratio DOI (Vmax) 0.33 ratio SV LVOT 69.69 ml CORINE (continuity Vmax0.8 cm2 CORINE (continuity Vmax0.46 cm2/m2 CORINE (continuity VTI)0.79 cm CORINE (continuity VTI)0.44 cm2/m2 Mitral Valve Value Units (Range) MV Vmax 2.36 m/sec MV VTI 68.8 cm MV peak gradient 22.28 mmHg MV mean gradient 8 mmHg MV PHT 80 msec MVA (PHT) 2.18 cm2 MVA (continuity VTI)1.01 cm2 Tricuspid Valve Value Units (Range) TR Vmax 3.16 m/sec TR peak gradient 39.94 mmHg RAP 3 mmHg RVSP 43 mmHg This report has been electronically signed by: Darwin Connors M.D. 09/10/2020 12:48:11 Images reviewed and interpretation verified [facility] Sera Valentin MD ECHO ORDERABLES documented in this encounter Visit Diagnoses Diagnosis Aortic valve stenosis, etiology of cardiac valve disease unspecified documented in this encounter Care Teams Ultra Sound Technician Relationship Specialty Start Date End Date Reshma Baig MD [address] [place] [id number] PCP - General Family Medicine 11/08/18 06/23/21 documented as of this encounter
--- OUTSIDE RECORDS SUMMARY | 2024-03-17 14:21 | XMS_ITS | Encounter Summary ---
Author Organization [facility] Address [facility] [place] [address] Care Team Providers Care Restoration Silversmith Name Role Phone Reshma Baig MD Primary Care Provider [phone] Reason for Visit * Reason Comments Follow-up * Auth/Cert Specialty Diagnoses / Procedures Referred By Malini carlson Referred To Contact Diagnoses Anemia Procedures EMERGENCY IPI Referral ID Status Reason Start Date Expiration Date Visits Re quested Visits Authorized [id number] 1 1 Encounter Details Date Type Department Care Team (Late st Contact Info) Description 09/10/2020 10:30 AM EST Office [place] [address] Damaris Florentino, PAN GREASER [facility] [place] [address] Surgery follow-up; Aortic valve stenosis, etiology of cardiac valve disease unspecified; Paroxysmal atrial fibrillation Social History Tobacco Use Types Packs/Day Years [...] Sign Reading Time Taken Comments Blood Pressure - - Pulse - - Temperature 36.4 ??C (97.5 ??F) 09/10/2020 10:[address] Respiratory Rate - - Oxygen Saturation - - Inhaled Oxygen Concentration - - Weight 81.2 kg (179 lb) 09/10/2020 10:17 AM EST Height - - Body Mass Index 32.74 06/24/2020 9:01 AM EDT documented in this encounter Progress Notes * Damaris Florentino Ivan, PAN GREASER - 09/10/2020 10:30 AM EST Shannan Reedlerc is here for general surgery follow up Shannan is a 79 y.o. year old female who presented in March with acute calculous cholecystitis. Her course was prolonged by septic and/or cardiogenic shock, Afib with RVR, aeHFpEF, aortic stenosis, NSTEMI, and UGIB secondary to esophagitis and anticoagulation She underwent percutanous cholecystostomy tube placement given her cardiac comorbidities. She underwent cardiac catheterization in March and in late May underwent balloon aortic valvuloplasty. She had been maintained on dual antiplatelet therapy due to the recent stent. 07/15/20:laparoscopic cholecystectomy-Ariadna Findings: - Percutaneous cholecystostomy was removed at [...] EBL: 25 mL - Wound class: 3 (contaminated)?? Path: DIAGNOSIS Gallbladder: - Chronic cholecystitis and cholelithiasis. Shannan is accompanied by her daughter to this appt. Shannan was in telephone contact with Dr Rosenthal in early July to discuss her pathology and post operative progress. 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 Today she denies fevers chills jaundice, pale stools or dark urine. Denies abdominal pain, appetiteis okay as long as she eats smaller more frequent meals.She endorses an episode of nausea and vomiting two days ago. She denies any incisional pain. Exam: Non toxic appearing, Sclera clear and non icteric, no jaundice. Abd soft non tender non distended, with benign trocar sites. Labs: 09/10/20: TP:6.5 Alb:4.1 TB:1.1 AP:122 AST:14 ALT:18 Impression/plan: I discussed above and reviewed labs with Dr Rosenthal who is the surgeon of record.At this time pt is returning to the ED per direction of cardiology for h/h drop to 5.4/19.2. documented in this encounter Plan of Treatment Not on file documented as of this encounter Procedures Procedure Name Priority Date/Time Associated Diagnosis Comments SCAN, PERIPHERAL BLOOD Routine 09/10/2020 2:42 PM EST HEMOGRAM Routine 09/10/2020 2:42 PM EST Aortic valve stenosis, etiology of cardiac valve disease unspecified Paroxysmal atrial fibrillation DIFFERENTIAL, AUTOMATED Routine 09/10/2020 2:42 PM EST Aortic valve stenosis, etiology of cardiac valve disease unspecified Paroxysmal atrial fibrillation HC CBC,PLT & AUTO DIFF Routine 09/10/2020 2:42 PM EST Aortic valve stenosis, etiology of cardiac valve disease unspecified Paroxysmal atrial fibrillation documented in this encounter Results * Scan, Peripheral Blood (09/10/2020 2:42 PM EST) Plat Estimate Normal [facility] RBC Morphology Abnormal [facility] Microcytes gtr than 10 /HPF [facility] Hypochromia Moderate [facility] Polychromasia Present >5/HPF [facility] Ovalocytes 1-5 /HPF [facility] Pappenheimer Bdy Present >1/HPF [facility] Blood specimen (specimen) 09/10/2020 2:42 PM EST 09/10/2020 3:16 PM EST Narrative Resulting Agency Comment Spec In Lab Esau Valentin MD HEMATOLOGY ORDERA BLES [facility] [place] [address] * Differential, Automated (09/10/2020 2:42 PM EST) Neutrophils % 68.7 % [facility] Neutr Abs (ANC) 5.38 1.70 - 6.10 x10(3)/[facility] Lymphocytes % 19.9 % [facility] Lymphocytes Abs 1.6 0.9 - 3.2 x10(3)/[facility] Monocytes % 8.4 % [facility] Monocyte Abs 0.7 0.3 - 0.9 x10(3)/[facility] Eosinophils % 1.9 % [facility] Eosinophils Abs 0.2 0.0 - 0.4 x10(3)/[facility] Basophils % 0.8 % [facility] Basophils Abs 0.1 0.0 - 0.1 x10(3)/[facility] Immature Gran % 0.30 % [facility] Comment: Immature granulocytes(IG's)percentage and absolute count will include metamyelocytes, myelocytes, and promyelocytes. Blood smears from CBCs yielding IG's will be scanned manually for concordance. If this scan disagrees with the automated IG or if promyelocytes are noted, a manual differential will be performed. Nanci Gran Abs 0.02 0.00 - 0.04 x10(3)/[facility] Blood specimen (specimen) 09/10/2020 2:42 PM EST 09/10/2020 3:16 PM EST Narrative Resulting Agency Comment Spec In Lab Esau Valentin MD HEMATOLOGY ORDERA BLES Performing Organization Address City/[facility]/ZIP Co de Phone Number [facility] [place] [address] * (ABNORMAL) Hemogram (09/10/2020 2:42 PM EST) WBC 7.8 4.0 - 9.5 x10(3)/mc L [facility] RBC 2.90(L) 4.00 - 5.21 x10(6)/mc L [facility] Hemoglobin 5.4(Criti ciera) 11.7 - 15.5 gm/dL [facility] Comment: This result has been called to ESAU VALENTIN by Debra Young on 09 10 2020 at 1534, and has been read back. Hematocrit 19.2(L) 35.7 - 45.8 % [facility] MCV 66.2(L) 82.6 - 94.4 fL [facility] MCH 18.6(L) 27.1 - 32.0 pg [facility] MCHC 28.1(L) 31.7 - 35.0 gm/dL [facility] Platelets 313 145 - 357 x10(3)/mc L [facility] RDWSD 41.5 37.0 - 46.0 [facility] RDWCV 17.3(H) 11.5 - 14.1 % [facility] MPV 10.5 7.6 - 12.9 [facility] nRBC % Auto 0.4 % [facility] nRBC Abs Auto 0.030(H) 0.000 - 0.000 x10(3)/mc L [facility] Blood specimen (specimen) 09/10/2020 2:42 PM EST 09/10/2020 3:16 PM EST Narrative Resulting Agency Comment Spec In Lab Esau Valentin MD HEMATOLOGY ORDERA BLES [facility] [place] [address] * (ABNORMAL) Hepatic Function Panel (09/10/2020 2:42 PM EST) Total Protein 6.5 6.1 - 8.0 gm/dL [facility] Albumin 4.1 3.2 - 5.2 gm/dL [facility] AST 14 0 - 30 unit/L [facility] ALT 18 0 - 30 unit/L [facility] Alk Phos 122(H) 35 - 105 unit/L [facility] Total Bilirubin 1.1 0.2 - 1.3 mg/dL [facility] Bili, Direct 0.3 0.0 - 0.3 mg/dL [facility] Blood specimen (specimen) 09/10/2020 2:42 PM EST 09/10/2020 3:16 PM EST Narrative Resulting Agency Comment Spec In Lab Damaris Florentino PAN GREASER CHEMISTRY ORDERABL ES [facility] [place] [address] documented in this encounter Visit Diagnoses Diagnosis Surgery follow-up Follow-up examination, following unspecified surgery Aortic valve stenosis, etiology of cardiac valve disease unspecified Paroxysmal atrial fibrillation Atrial fibrillation documented in this encounter Care Teams Restoration Silversmith Relationship Specialty Start Date End Date Reshma Baig MD [address] [place] [address] PCP - General Family Medicine 11/08/18 06/23/21 documented as of this encounter
--- OUTSIDE RECORDS SUMMARY | 2024-03-17 14:21 | XMS_ITS | Encounter Summary ---
Author Organization Formerly [facility], [facility] [place] [address] Care Team Providers Care Interactive Video Technician Name Role Phone Reshma Baig MD Primary Care Provider [phone] Encounter Details Date Type Department Care Team (Late st Contact Info) Description 09/10/2020 Telephone Cardiology at [address] [phone] Ryan Marques, RN Social History Tobacco Use [...] on filedocumented in this encounter Care Teams Interactive Video Technician Relationship Specialty Start Date End Date Reshma Baig MD [address] [place] [address] PCP - General Family Medicine 11/08/18 06/23/21 documented as of this encounter
--- OUTSIDE RECORDS SUMMARY | 2024-03-17 14:21 | XMS_ITS | Encounter Summary ---
Author Organization [facility] Address [facility] [place] [address] Care Team Providers Care Senior Search Marketing Analyst Name Role Phone Reshma Baig MD Primary Care Provider [phone] Encounter Details Date Type Department Care Team (Late st Contact Info) Description 08/10/2020 Telephone General Surgery at [facility] [place] [address] Hong Rosenthal MD [facility] [place] [address] Social History Tobacco Use Types Packs/Day Years [...] Telephone Encounter - Hong Rosenthal MD - 08/10/2020 11:45 AM EST Attempted to call back to follow up on her surgical recovery. CT images were of a dedicated spinal CT and did not adequately visualize the peritoneal cavity or complete gallbladder fossa. Of that which could be seen, there is no evidence of complication. documented in this encounter Plan of Treatment Not on file documented as of this encounter Visit Diagnoses Diagnosis S/P laparoscopic cholecystectomy Other postprocedural status documented in this encounter Care Teams Senior Search Marketing Analyst Relationship Specialty Start Date End Date Reshma Baig MD [address] [place] [address] PCP - General Family Medicine 11/08/18 06/23/21 documented as of this encounter
--- OUTSIDE RECORDS SUMMARY | 2024-03-17 14:21 | XMS_ITS | Encounter Summary ---
Author Organization Formerly [facility] Address [facility] [place] [address] Care Team Providers Care Marker Hand Name Role Phone Reshma Baig MD Primary Care Provider [phone] Reason for Visit * Auth/Cert Specialty Diagnoses / Procedures Referred By Malini carlson Referred To Contact Diagnoses Anemia Procedures EMERGENCY IPI Referral ID Status Reason Start Date Expiration Date Visits Re quested Visits Authorized [id number] 1 1 Encounter Details Date Type Department Care Team (Latest Contact Info) Description 09/10/2020 1:00 PM EST Office Visit Cardiology at [address] [phone] Jordyn Valentin MD [facility] [place] [address] Aortic valve stenosis, etiology of cardiac valve disease unspecified; 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; Paroxysmal atrial fibrillation; Hyperlipidemia, unspecified hyperlipidemia type; Hypertension, unspecified type; Severe aortic stenosis; Cholecystitis; Surgery follow-up Social History Tobacco Use Types Packs/Day Years [...] Sign Reading Time Taken Comments Blood Pressure 123/59 09/10/2020 1:02 PM EST Pulse 73 09/10/2020 1:02 PM EST Temperature - - Respiratory Rate - - Oxygen Saturation 100% 09/10/2020 1:02 PM EST Inhaled Oxygen Concentration - - Weight 81.2 kg (179 lb) 09/10/2020 1:02 PM EST Height 157.5 cm (5' 2) 09/10/2020 1:02 PM EST Body Mass Index 32.74 09/10/2020 1:02 PM EST documented in this encounter Patient Instructions * Patient Instructions* Jordyn Valentin MD - 09/10/2020 1:00 PM EST It is time to stop your aspirin (81 mg). Continue plavix for now (75 mg). Plavix is a little gentler on the stomach lining. documented in this encounter Progress Notes * Jordyn Valentin MD - 09/10/2020 1:00 PM EST Images from the original note were not included. CARDIOVASCULAR MEDICINE Jordyn Valentin MD MPH Structural Interventional Cardiology [place] [phone] , #5 Overall clinical summary: This is a 80 y.o. year old female originally referred by the inpatient team for consideration of treatment of . Impression: . 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 Note appeared Low output low gradient on echo originally, but mean gradient 50s at time of cath . CAD s/p PCI . Severe anemia . pAF with indication for anticoagulation, now with acute blood loss Based on the above impressions, admit to hospital for evaluation of anemia and treatment of severe . Plan/Next steps: We are planning additional work up for this new problem for the patient. . Evaluate for acute bleed . She will need heart failure management after transfusion . Stop aspirin, continue plavix . No anticoagulation given acute anemia . While an inpatient, TAVR CT and consult cardiac surgery and make a plan with structural team for TAVR pending results of evaluation Brief summary of most relevant clinical history and exam, as well as plan, are listed above. Below are further details of today's visit. Present history: This patient is an 80 y.o. year old female with a history of cholecystitis, CAD with PCI, and severe who presented to the clinic for shortness of breath. This is worsening. She appears very pale. I am concerned about worsening anemia. No recent CBC. Pertinent past history: Patient Active Problem List Diagnosis ??? Obesity (BMI 30.0-34.9) ??? Aortic valve [...] insulin ??? Hypertension ??? Hyperlipidemia ??? Arthritis PAST MEDICAL HISTORY: The patient has a has a past medical history of Actinic keratosis (08/31/2011),Diabetes, Seborrheic keratosis (08/31/2011), and Severe aortic stenosis.. The remainder of the PMH issummarized in the problem list above. PAST SURGICAL HISTORY: Past Surgical History: Procedure Laterality Date ??? CT PERITONEAL DRAINAGE 04/28/2020 CT Guided Drain Peritoneal 04/28/2020 [facility] RAD CAT SCAN ??? HYSTERECTOMY, VAGINAL ??? IR BILIARY TUBE CHECK/CHANGE/REMOVE 06/03/2020 IR Biliary Tube Check/Change/Remove 06/03/2020 Jos Collins, DO [facility] INTER[facility] RAD ??? IR CHOLECYSTOSTOMY TUBE PLACEMENT 04/22/2020 IR Cholecystostomy Tube Placement 04/22/2020 Jos Collins, DO [facility] RAD ??? IR DRAIN CHECK/CHANGE/REMOVE 05/19/2020 IR Drain Check/Change/Remove 05/19/2020 Jos Collins, DO [facility] RAD ??? PRO LAP, CHOLECYSTECTOMY/GRAPH N/A 07/15/2020 LAPAROSCOPIC CHOLECYSTECTOMY WITH CHOLANGIOGRAM (WRVU 11.47) performed by Hong Rosenthal MD at [facility] MAIN OR ??? PRO UPPER GI ENDOSCOPY, DIAGNOSTIC N/A 05/03/2020 EGD, UPPER GI ENDOSCOPY performed by Brigitte Graf MD at [facility] ENDOSCOPY SOCIAL HISTORY: Reviewed and updated as appropriate in the medical record. Patient reports that levy never smoked. She has never used smokeless tobacco. She reports previous alcohol use. She reports that she does not use drugs. FAMILY HISTORY: The patient's family history is not on file. MEDICATIONS: Current Outpatient Medications Medication Sig Dispense Refill ??? metoprolol succinate XL (Toprol-XL) 100 mg [...] by mouth daily. 90 tablet 3 ??? VITAMIN D 1,000 [...] or as needed. 200 each 3 ??? lidocaine (XYLOCAINE) 5 % Ointment ??? pantoprazole EC (Protonix) 40 mg Tablet, Delayed Release (E.C.) Take 1 tablet by mouth 2 times daily. (Patient not taking: Reported on 09/10/2020) 90 tablet 3 ??? fluocinolone acetonide (SYNALAR) 0.01 % Solution Apply twice daily to itchy areas and scalp (Patient not taking: Reported on 09/10/2020) 60 mL 3 ??? metroNIDAZOLE (METROCREAM) 0.75 % Cream Apply twice daily to face after washing (Patient not taking: Reported on 09/10/2020) 45 g 3 No current facility-administered medications for this visit. ALLERGIES: Reviewed and updated as appropriate in the medical record: Patient has no known allergies. Review of systems: Please see the HPI for pertinent positives and negatives. The remainder of the ROS was reviewed and is negative. PHYSICAL EXAMINATION: Vitals: Wt Readings from Last 3 Encounters: 09/10/20 80.7 kg (178 lb) 09/10/20 81.2 kg (179 lb) 09/10/20 81.2 kg (179 lb) Temp Readings from Last 3 Encounters: 09/10/20 36.8 ??C (98.2 ??F) (Temporal) 09/10/20 36.4 ??C (97.5 ??F) 07/15/20 37.1 ??C (98.8 ??F) BP Readings from Last 3 Encounters: 09/10/20 137/42 09/10/20 123/59 07/15/20 160/57 Pulse Readings from Last 3 Encounters: 09/10/20 59 09/10/20 73 07/15/20 55 Comprehensive cardiovascular exam: Constitutional: The patient is tired appearing, very pale and without complaints. Psych: They are able to relay the details of their medical course and future planning with ease, and are oriented. There is not a suggestion of cognitive decline or memory issues or abnormal mood. Eyes: no xanthelasma ENMT: unremarkable dentition, oropharynx clear with moist mucus membranes and no mucosal ulcerations Neck: JVP is easily seen with the patient sitting upright and is estimated at less than 10 cm water Cardiovascular: Heart rhythm is regular. PMI is palpated and is not displaced; there is no RV lift.S1 S2 are well heard, and there is a loud, harsh 3/6 late peaking systolic murmur heard at the RUSBthat radiates to the apex and carotids; no diastolic murmur, nor rubs or gallops. Peripheral pulses are felt and are 2+ (radial). Extremities: No stasis dermatitis or open ulcers Respiratory: Clear to auscultation bilaterally; no labored breathing Abdomen (GI): abd is soft, NT, ND. Musculoskeletal: the patient has no difficulty arising from a chair and has no significant kyphosis Skin: there are no visible lesions or rashes and on palpation, there is 2+ pitting ankle edema. Neuro: there are no gross neurologic deficits- the patient can move all 4 limbs and has normal speech. There is no facial droop. TESTING: I have reviewed the pertinent outside records, laboratory data, and imaging studies. I personally reviewed the images and developed my own interpretation of the echocardiogram, CT scan if available, chest xray, and ECG. Pertinent results for this evaluation include: Labs (including hgb, plt, INR, Cr, lipids if available): Lab Results Component Value Date WBC 7.8 09/10/2020 HGB 5.4 (CRIT) 09/10/2020 HCT 19.2 (L) 09/10/2020 PLATELET 313 09/10/2020 CHLPL 104 04/22/2020 TRIG 237 04/22/2020 HDL 17 04/22/2020 LDLCHOL 40 04/22/2020 LDLDIRECT 73 02/28/2017 ALT 18 09/10/2020 AST 14 09/10/2020 NA 139 06/25/2020 K 3.6 06/25/2020 CL 108 (H) 06/25/2020 CREATININE 0.73 06/25/2020 BUN 10 06/25/2020 CO2 23 06/25/2020 TSH 1.22 04/22/2020 INR 1.3 04/23/2020 GLUCFASTING 150 (H) 06/25/2020 HA1C 8.5 (H) 04/22/2020 MICROALBUR 7.3 02/28/2017 Plan: as described above. Without this evaluation, this patient at risk of worsening acute diastolic congestive heart failure. I wrote to multiple other health care providers about the recommended plan. Note that this visit was 25 min of face to face time, of which 18 min was spent in counseling. For referring providers: Thank you for requesting this consultation. For questions, please feel free to contact me: [phone] #3 for interventional nurse or #5 for my tv production assistant or [email or web address] 09/10/2020 Referring Providers: MD Ariadna Mcdonald James C, MD [facility] [place] [address] [place] [address] JORDYN VALENTIN MD 09/10/2020 TESTING: Recent Results (from the past 72 hour(s)) Echocardiogram Transthoracic([facility] or [facility]) Result Value Ref Range EF 65 EKG 12 Lead Result Value Ref Range Ventricular rate 70 BPM Atrial Rate 70 BPM P-R Interval 118 ms QRS Duration 130 ms Q-T Interval 456 ms QTC Calculated (Bezet) 492 ms Calculated P [place] 49 degrees Calculated R [place] 22 degrees Calculated T [place] -33 degrees INTERPRETATION Normal sinus rhythm Right bundle branch block Abnormal ECG When compared with ECG of 25-JUN-2020 07:16, No significant change was found Confirmed by Rambo Pak MD ([id number]) on 09/10/2020 5:07:46 PM Hepatic Function Panel Result Value Ref Range Total Protein 6.5 6.1 - 8.0 gm/dL Albumin 4.1 3.2 - 5.2 gm/dL AST 14 0 - 30 unit/L ALT 18 0 - 30 unit/L Alk Phos 122 (H) 35 - 105 unit/L Total Bilirubin 1.1 0.2 - 1.3 mg/dL Bili, Direct 0.3 0.0 - 0.3 mg/dL Hemogram Result Value Ref Range WBC 7.8 4.0 - 9.5 x10(3)/mcL RBC 2.90 (L) 4.00 - 5.21 x10(6)/mcL Hemoglobin 5.4 (CRIT) 11.7 - 15.5 gm/dL Hematocrit 19.2 (L) 35.7 - 45.8 % MCV 66.2 (L) 82.6 - 94.4 fL MCH 18.6 (L) 27.1 - 32.0 pg MCHC 28.1 (L) 31.7 - 35.0 gm/dL Platelets 313 145 - 357 x10(3)/mcL RDWSD 41.5 37.0 - 46.0 fL RDWCV 17.3 (H) 11.5 - 14.1 % MPV 10.5 7.6 - 12.9 fL nRBC % Auto 0.4 % nRBC Abs Auto 0.030 (H) 0.000 - 0.000 x10(3)/mcL Differential, Automated Result Value Ref Range Neutrophils % 68.7 % Neutr Abs (ANC) 5.38 1.70 - 6.10 x10(3)/mcL Lymphocytes % 19.9 % Lymphocytes Abs 1.6 0.9 - 3.2 x10(3)/mcL Monocytes % 8.4 % Monocyte Abs 0.7 0.3 - 0.9 x10(3)/mcL Eosinophils % 1.9 % Eosinophils Abs 0.2 0.0 - 0.4 x10(3)/mcL Basophils % 0.8 % Basophils Abs 0.1 0.0 - 0.1 x10(3)/mcL Immature Gran % 0.30 % Nanci Gran Abs 0.02 0.00 - 0.04 x10(3)/mcL Scan, Peripheral Blood Result Value Ref Range Plat Estimate Normal RBC Morphology Abnormal Microcytes gtr than 10 /HPF Hypochromia Moderate Polychromasia Present >5/HPF Ovalocytes 1-5 /HPF Pappenheimer Bdy Present >1/HPF CC: Reshma Baig MD documented in this encounter Plan of Treatment Not on file documented as of this encounter Procedures Procedure Name Priority Date/Time Associated Diagnosis Comments HC VENIPUNCTURE Routine 09/10/2020 2:42 PM EST Surgery follow-up BASIC METABOLIC PANEL (NON-FASTING) Routine 09/10/2020 2:42 PM EST EKG 12-LEAD Routine 09/10/2020 1:18 PM EST Aortic valve stenosis, etiology of cardiac valve disease unspecified 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 Paroxysmal atrial fibrillation Hyperlipidemia, unspecified hyperlipidemia type Hypertension, unspecified type Severe aortic stenosis documented in this encounter Results * (ABNORMAL) Basic Metabolic Panel (non-fasting) (09/10/2020 2:42 PM EST) Glucose Lvl 261(H) 65 - 199 mg/dL [facility] Comment:Diabetes: >=200 mg/d L plus symptoms BUN 17 8 - 18 mg/dL [facility] Creatinine 1.02 0.70 - 1.20 mg/dL [facility] Sodium 141 135 - 145 mmol/L [facility] Potassium 3.6 3.5 - 5.0 mmol/L [facility] Comment: Please note: ??Patients with WBC >100,000 may have falsely elevated Potassium levels. ??For accurate Potassium quantification in these patients send serum separator tube (gold top) for subsequent determinations. ??Contact the Clinical Chemistry Laboratory if there are any questions. Chloride 101 98 - 107 mmol/L [facility] CO2 25 22 - 31 mmol/L [facility] Anion Gap 15 5 - 15 mmol/L [facility] Calcium 8.7 8.5 - 10.5 mg/dL [facility] Estimated GFR 52(L) >=60 mL/min/1. 73 m?? [facility] Comment: This patient? s estimated glomerular filtration rate (eGFR) is between 52 mL/min/1.73 m2 (patients with less muscle mass) and 60 mL/min/1.73 m2 (patients with more muscle mass) [...] in addition to eGFR. Blood specimen (specimen) Venous Draw / Unknown 09/10/2020 2:42 PM EST 09/10/2020 4:06 PM EST Narrative Resulting Agency Comment Spec In Lab Osito Calabrese Jr., MD CHEMISTRY ORDERAB LES Performing Organization Address [facility] Co de Phone Number [facility] [place] [address] * (ABNORMAL) Hepatic Function Panel (09/10/2020 2:42 PM EST) Total Protein 6.5 6.1 - 8.0 gm/dL [facility] Albumin 4.1 3.2 - 5.2 gm/dL [facility] AST 14 0 - 30 unit/L [facility] ALT 18 0 - 30 unit/L [facility] Alk Phos 122(H) 35 - 105 unit/L [facility] Total Bilirubin 1.1 0.2 - 1.3 mg/dL [facility] Bili, Direct 0.3 0.0 - 0.3 mg/dL [facility] Blood specimen (specimen) 09/10/2020 2:42 PM EST 09/10/2020 3:16 PM EST Narrative Resulting Agency Comment Spec In Lab Damaris Florentino APRN CHEMISTRY ORDERABL ES Performing Organization Address [facility] Co de Phone Number [facility] [place] [address] * EKG 12 Lead (09/10/2020 1:18 PM EST) Ventricular rate 70 BPM MUSE SYSTEM Atrial Rate 70 BPM MUSE SYSTEM P-R Interval 118 ms MUSE SYSTEM QRS Duration 130 ms MUSE SYSTEM Q-T Interval 456 ms MUSE SYSTEM QTC Calculated (Bezet) 492 ms MUSE SYSTEM Calculated P [place] 49 degrees MUSE SYSTEM Calculated R [place] 22 degrees MUSE SYSTEM Calculated T [place] -33 degrees MUSE SYSTEM INTERPRETATION Normal sinus rhythm Right bundle branch block Abnormal ECG When compared with ECG of 25-JUN-2020 07:16, No significant change was found Confirmed by Rambo Pak MD ([id number]) on 09/10/2020 5:07:46 PM MUSE SYSTEM 09/10/2020 1:18 PM EST 09/10/2020 5:07 PM EST Jordyn Valentin MD ECG ORDERABLES MUSE SYSTEM documented in this encounter Visit Diagnoses Diagnosis Aortic valve stenosis, etiology of cardiac valve disease unspecified 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 Unspecified cardiovascular disease Paroxysmal atrial fibrillation Atrial fibrillation Hyperlipidemia, unspecified hyperlipidemia type Hypertension, unspecified type Severe aortic stenosis Aortic valve disorders Cholecystitis Cholecystitis, unspecified Surgery follow-up Follow-up examination, following unspecified surgery documented in this encounter Care Teams Marker Hand Relationship Specialty Start Date End Date Reshma Baig MD [address] [place] [id number] PCP - General Family Medicine 11/08/18 06/23/21 documented as of this encounter
--- OUTSIDE RECORDS SUMMARY | 2024-03-17 14:22 | XMS_ITS | Encounter Summary ---
Author Organization Counts Include [address] [facility] [address] Care Team Providers Care Signwriter Name Role Phone Reshma Baig MD Primary Care Provider [phone] Reason for Referral * Diagnostic Test (Routine) - Closed Specialty Diagnoses / Procedures Referred By Contronen t Referred To Contact Cardiology Diagnoses Aortic valve stenosis, etiology of cardiac valve disease unspecified Procedures Echocardiogram Transthoracic([facility]) Jordyn Valenitn MD [facility] [place] [address] [facility] [place] [address] Referral ID Status Reason Start Date Expiration Date V isits Requested Visits Authorized [id number] Closed Specialty Service Requested 2020 03/06/2021 1 1 Encounter Details Date Type Department Care Team (Latest Contact Info) Description 06/18/2020 3:00 PM EDT Office Visit Cardiology at [address] [phone] Jordyn Vlaentin MD [facility] [place] [address] Type 2 diabetes mellitus with other circulatory complication, unspecified whether residential insulin use; Hypertension, unspecified type; Hyperlipidemia, unspecified hyperlipidemia type; 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; Aortic valve stenosis, etiology of cardiac valve disease unspecified; Paroxysmal atrial fibrillation Social History Tobacco Use Types Packs/Day Years Used Date Smoking Tobacco: Never Smokeless Tobacco: Never Alcohol Use Standard Drinks/Week Comments Yes 0 (1 standard drink = 0.6 oz pur e alcohol) occassional Sex and Gender Information Value Date Recorded Sex Assigned at Not on file Gender Identity Not on file Sexual Orientation Not on file documented as of this encounter Last Filed Vital Signs Vital Sign Reading Time Taken Comments Blood Pressure 170/52 06/18/2020 2:51 PM EDT Pulse 98 06/18/2020 2:51 PM EDT Temperature - - Respiratory Rate - - Oxygen Saturation 100% 06/18/2020 2:51 PM EDT Inhaled Oxygen Concentration - - Weight 80.7 kg (178 lb) 06/18/2020 2:51 PM EDT Height 157.5 cm (5' 2) 06/18/2020 2:51 PM EDT Body Mass Index 32.56 06/18/2020 2:51 PM EDT documented in this encounter Patient Instructions * Patient Instructions* Jordyn Valentin MD - 06/18/2020 3:00 PM EDT Lasix 20 mg daily to reduce ankle swelling. Increase to Lasix 40 mg if you do not see a change in ankle swelling. We will repeat an echocardiogram to look at the aortic valve and make a final decision about timingof surgery on the gallbladder and treating the heart (transcatheter aortic valve replacement). documented in this encounter Progress Notes * Jordyn Valentin MD - 06/18/2020 3:00 PM EDT Images from the original note were not included. CARDIOVASCULAR MEDICINE Jordyn Valentin MD MPH Structural Interventional Cardiology [place] [id number] , #5 Overall clinical summary: This is a 79 y.o. year old female referred by the inpatient team for consideration of treatment of . Impression: . Low output low gradient severe . CAD s/p PCI . Anna tube, awaiting cholecystectomy Remainder of problem list below Based on the above impressions, we discussed options on BAV bridge to TAVR to allow for anna, or TAVR first then anna. Plan/Next steps: We are planning additional work up for this new problem for the patient. Options include BAV or work up for TAVR vs SAVR. If we proceed with BAV: . Plan for this coming week (Sun or ) If we proceed with TAVR/SAVR work up: . Repeat echocardiogram . Meet with cardiac surgeon . CT of chest/abd/pelvis to look at annular sizing and formal ileofemoral measurements . Lasix 20 mg, increase to 40 mg . Meet with me again- this evaluation needs to be done in a timely way given her cholecystectomy tube . Refer to Dr Renae for general cardiology Brief summary of most relevant clinical history and exam, as well as plan, are listed above. Below are further details of today's visit. Present history: This patient is an 79 y.o. year old female with a history of cholecystitis, CAD with PCI, and severe who presented to the clinic for shortness of breath. We spent the entirety of the visit in shared decision making about the 2 choices ahead of us: BAV then anna, or TAVR then anna. The latter would bring some delay due to need for work up. We discussed risks/benefits. She will think about it over the weekend. Pertinent past history: Patient Active Problem List Diagnosis ??? Aortic stenosis - moderate 04/20/20 TTE [...] ??? Cholecystitis ??? Type 2 diabetes mellitus ??? Hypertension ??? Hyperlipidemia ??? Arthritis ??? Actinic keratosis ??? Seborrheic keratosis PAST MEDICAL HISTORY: The patient has a has a past medical history of Diabetes and Severe aortic stenosis.. The remainder of the PMH is summarized in the problem list above. PAST SURGICAL HISTORY: Past Surgical History: Procedure Laterality Date ??? CT PERITONEAL DRAINAGE 04/28/2020 CT Guided Drain Peritoneal 04/28/2020 [facility] RAD CAT SCAN ??? HYSTERECTOMY, VAGINAL ??? IR BILIARY TUBE CHECK/CHANGE/REMOVE 06/03/2020 IR Biliary Tube Check/Change/Remove 06/03/2020 Jos Collins, DO [facility] INTERVENTIONL RAD ??? IR CHOLECYSTOSTOMY TUBE PLACEMENT 04/22/2020 IR Cholecystostomy Tube Placement 04/22/2020 Jos Collins, DO [facility] INTERVENTIONL RAD ??? IR DRAIN CHECK/CHANGE/REMOVE 05/19/2020 IR Drain Check/Change/Remove 05/19/2020 Jos Collins, DO [facility] INTERVENTIONL RAD ??? PRO UPPER GI ENDOSCOPY, DIAGNOSTIC N/A 05/03/2020 EGD, UPPER GI ENDOSCOPY performed by Brigitte Graf MD at [facility] ENDOSCOPY SOCIAL HISTORY: Reviewed and updated as appropriate in the medical record. Patient reports that levy never smoked. She has never used smokeless tobacco. She reports current alcohol use. She reports that she does not use drugs. FAMILY HISTORY: The patient's family history is not on file. MEDICATIONS: Current Outpatient Medications Medication Sig Dispense Refill ??? rosuvastatin (Crestor) 20 mg Tablet Take 1 tablet by mouth every evening. 90 tablet 3 ??? AMIOdarone (Cordarone; Pacerone) 200 mg Tablet Take 1 tablet by mouth 2 times daily. 30 tablet 11 ??? clopidogreL (Plavix) 75 mg Tablet Take 1 tablet by mouth daily. 90 tablet 3 ??? metoprolol succinate XL (Toprol-XL) 100 mg Tablet Sustained Release 24 hr Take 3 tablets by mouth nightly. 30 tablet 12 ??? losartan (Cozaar) 25 mg Tablet Take 1 tablet by mouth daily. 90 tablet 3 ??? aspirin 81 mg Tablet, Chewable Take 81 mg by mouth daily. 30 tablet 3 ??? pantoprazole EC (Protonix) 40 mg Tablet, Delayed Release (E.C.) Take 1 tablet by mouth 2 times daily. 90 tablet 3 ??? VITAMIN D 1,000 unit Capsule take 1 capsule by mouth daily 0 ??? VITAMINS B COMPLEX Tablet take 1 capsule by mouth once daily 0 ??? fluocinolone acetonide (SYNALAR) 0.01 % Solution Apply twice daily to itchy areas and scalp 60 mL 3 ??? metroNIDAZOLE (METROCREAM) 0.75 % Cream Apply twice daily to face after washing 45 g 3 ??? insulin lispro (HUMALOG [...] or as needed. 200 each 3 ??? furosemide (Lasix) 20 mg Tablet Take 1 tablet by mouth 2 times daily. 90 tablet 3 ??? oxyCODONE (Roxicodone) 5 mg Tablet Take 1 tablet by mouth every 4 hours as needed for Pain. (Patient not taking: Reported on 06/18/2020) 3 tablet 0 ??? bisacodyl EC (Dulcolax) 5 mg Tablet, Delayed Release (E.C.) Take 2 tablets by mouth daily as needed for Constipation. (Patient not taking: Reported on 06/18/2020) 30 tablet 0 ??? polyethylene glycoL (Miralax) 17 gram Powder in Packet Take 17 g by mouth daily. (Patient not taking: Reported on 06/18/2020) 14 each 0 ??? minocycline (MINOCIN;DYNACIN) 100 mg Capsule Take one capsule by mouth just before bedtime for 1 week. Then 1 capsule by mouth twice daily. 60 capsule 1 ??? VICTOZA 2-ISABEL 0.6 mg/0.1 mL (18 mg/3 mL) Pen Injector inject 1.2 milligram subcutaneously daily0 ??? dulaglutide 0.75 mg/0.5 mL Pen Injector Inject 0.75 mg subcutaneously once a week. (Patient nottaking: Reported on 06/18/2020) 4 Syringe 2 No current facility-administered medications for this visit. ALLERGIES: Reviewed and updated as appropriate in the medical record: Patient has no known allergies. Review of systems: Please see the HPI for pertinent positives and negatives. The remainder of the ROS was reviewed and is negative. PHYSICAL EXAMINATION: Vitals: Wt Readings from Last 3 Encounters: 06/18/20 80.7 kg (178 lb) 06/18/20 81.6 kg (180 lb) 06/16/20 81.6 kg (180 lb) Temp Readings from Last 3 Encounters: 06/03/20 36.7 ??C (98.1 ??F) 06/03/20 36.7 ??C (98 ??F) 05/19/20 37.2 ??C (99 ??F) (Temporal) BP Readings from Last 3 Encounters: 06/18/20 170/52 06/18/20 152/62 06/03/20 133/57 Pulse Readings from Last 3 Encounters: 06/18/20 98 06/18/20 64 06/03/20 62 Comprehensive cardiovascular exam: Constitutional: The patient is bright, cheerful and without complaints. Psych: They are able [...] or rashes and on palpation, there is 1+ pitting ankle edema. Neuro: there are no [...] available): Lab Results Component Value Date WBC 8.6 05/08/2020 HGB 8.8 (L) 05/08/2020 HCT 26.7 (L) 05/08/2020 PLATELET 351 05/08/2020 CHLPL 104 04/22/2020 TRIG 237 04/22/2020 HDL 17 04/22/2020 LDLCHOL 40 04/22/2020 LDLDIRECT 73 02/28/2017 ALT 11 05/04/2020 AST 12 05/04/2020 NA 136 05/08/2020 K 4.1 05/08/2020 CL 107 05/08/2020 CREATININE 0.85 05/08/2020 BUN 20 (H) 05/08/2020 CO2 21 (L) 05/08/2020 TSH 1.22 04/22/2020 INR 1.3 04/23/2020 HA1C 8.5 (H) 04/22/2020 MICROALBUR 7.3 02/28/2017 [...] questions, please feel free to contact me: [phone] #3 for interventional nurse or #5 for my transportation assistant or [email or web address]. Shannan Moody 06/18/2020 Referring Providers: MD Ariadna Mcdonald James C, MD [facility] [place] [address] JORDYN VALENTIN MD 06/18/2020 TESTING: No results found for this or any previous visit (from the past 72 hour(s)). CC: Reshma Baig MD documented in this encounter Plan of Treatment Not on file documented as of this encounter Results * ECHO COMPLETE (09/10/2020 12:20 PM EST) EF 65 HEARTLAB SYSTEM Anatomical Region Laterality Modality Other 09/10/2020 Narrative 09/10/2020 12:48 PM EST Procedure: ?Transthoracic Echocardiogram Patient: ?WILLIAM ASHER A ? (Age): 1940(80y) Med Rec#: ? [id number] ?Sex: ?F ? Site Loc: ? [facility] ?Ht / Wt: ??157(cm)/80(kg) Pt. Loc: ?Echo Lab ?BSA: ?1.81 Study Date: ?? 09/10/2020 ?Pt. Type: Outpatient Tape: ? Referring: ASHLEYJ Reading: Darwin Connors ([id number]) Farmworker Fur: Deb Curtis Diagnosis: *Nonrheumatic aortic (valve) stenosis [...] Vmax ?2.04 ? m/sec ? MV deceleration [id number] ?msec ? MV A-wave Vmax ?1.15 ? [...] 09/10/2020 12:48:11 Images reviewed and interpretation verified [facility] Cardiac Ultrasound Laboratory Procedure Note Darwin Connors MD - 09/10/2020 Procedure: Transthoracic Echocardiogram Patient: WILLIAM ANDERSON(Age): 1940(80y) Med Rec#: [id number] Sex: F Site Loc: [facility] Ht / Wt: 157(cm)/80(kg) Pt. Loc: Echo Lab BSA: 1.81 Study Date: 09/10/2020 Pt. Type: Outpatient Tape: Referring: NAIF Reading: Darwin Connors ([id number]) Farmworker Fur: Deb Curtis Diagnosis: *Nonrheumatic aortic (valve) stenosis [...] MV E-wave Vmax 2.04 m/sec MV deceleration [id number] msec MV A-wave Vmax 1.15 m/sec MV [...] 09/10/2020 12:48:11 Images reviewed and interpretation verified [facility] Cardiac Ultrasound Laboratory Jordyn Valentin MD ECHO ORDERABLES * Basic Metabolic Panel (non-fasting) (06/24/2020 8:40 AM EDT) Glucose Lvl 128 65 - 199 mg/dL [facility] Comment:Diabetes: >=200 mg/d L plus symptoms BUN 10 8 - 18 mg/dL [facility] Creatinine 0.83 0.70 - 1.20 mg/dL [facility] Sodium 137 135 - 145 mmol/L [facility] Potassium 3.6 3.5 - 5.0 mmol/L [facility] Comment: Please note: ??Patients with WBC >100,000 may have falsely elevated Potassium levels. ??For accurate Potassium quantification in these patients send serum separator tube (gold top) for subsequent determinations. ??Contact the Clinical Chemistry Laboratory if there are any questions. Chloride 102 98 - 107 mmol/L [facility] CO2 24 22 - 31 mmol/L [facility] Anion Gap 11 5 - 15 mmol/L [facility] Calcium 8.9 8.5 - 10.5 mg/dL [facility] Estimated GFR 67 >=60 mL/min/1. 73 m?? [facility] Comment: The eGFR was calculated using the CKD-EPI equation. As with all creatinine based estimates of kidney function, eGFR values calculated with the CKD-EPI equation are not accurate in patients with acute kidney failure, extremes of body mass or the acutely ill. [email or web address] eGFR 78 >=60 mL/min/1. 73 m?? [facility] Comment: The eGFR was calculated using the CKD-EPI equation. As with all creatinine based estimates of kidney function, eGFR values calculated with the CKD-EPI equation are not accurate in patients with acute kidney failure, extremes of body mass or the acutely ill. [email or web address] Blood specimen (specimen) 06/24/2020 8:40 AM EDT 06/24/2020 8:47 AM EDT Narrative Resulting Agency Comment Spec In Lab Jordyn Valentin MD CHEMISTRY ORDERAB LES Performing Organization Address City/State/[facility] Co de Phone Number [facility] [place] [address] documented in this encounter Visit Diagnoses Diagnosis Type 2 diabetes mellitus with other circulatory complication, unspecified whether superintendent [employer] insulin use Hypertension, unspecified type Hyperlipidemia, unspecified hyperlipidemia type 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 Unspecified cardiovascular disease Aortic valve stenosis, etiology of cardiac valve disease unspecified Paroxysmal atrial fibrillation Atrial fibrillation Aortic valve stenosis, etiology of cardiac valve disease unspecified documented in this encounter Care Teams Signwriter Relationship Specialty Start Date End Date Reshma Baig MD [address] [place] [phone] PCP - General Family Medicine 11/08/18 06/23/21 documented as of this encounter
--- OUTSIDE RECORDS SUMMARY | 2024-03-17 14:22 | XMS_ITS | Encounter Summary ---
Author Organization [facility] Address [facility] [place] [address] Care Team Providers Care Toxics Program Officer Name Role Phone Reshma Baig MD Primary Care Provider [phone] Reason for Visit * Auth/Cert Specialty Diagnoses / Procedures Referred By Malini carlson Referred To Contact Diagnoses Aortic valve stenosis, etiology of cardiac valve disease unspecified [I35.0] Procedures PRG UNLISTED CV SVC/PX PRO PERCUT AORTIC VALVULOPLASTY PRG CATH PLMT LEFT HEART CATH & ARTS W/INJ & ANGIO IMG S&I PRO MOD SED SAME PHYS/QHP INITIAL 15 MINS <5 YRS CARDIAC CATHETERIZATION TRICUSPID CLIP BALLOON AORTIC VALVULOPLASTY Referral ID Status Reason Start Date Expiration Date Visits Re quested Visits Authorized [id number] 1 1 Encounter Details Date Type Department Care Team (Late st Contact Info) Description 06/24/2020 8:12 AM EDT - 06/25/2020 3:30 PM EDT Hospital Encounter [place] [address] Esau Valentin MD [facility] [place] [address] Benoit Schumacher MD [facility] [place] [address] [place] [address] Maria L Salazar MD [facility] [place] [address] Aortic valve stenosis, etiology of cardiac valve disease unspecified; Paroxysmal atrial fibrillation Discharge Disposition: Home Social History Tobacco Use [...] Sign Reading Time Taken Comments Blood Pressure 143/49 06/25/2020 11:53 AM EDT Pulse 68 06/25/2020 11:53 AM EDT Temperature 37 ??C (98.6 ??F) 06/25/2020 11: 53 AM EDT Respiratory Rate 18 06/25/2020 11:5 3 AM EDT Oxygen Saturation 96% 06/25/2020 11: 53 AM EDT Inhaled Oxygen Concentration - - Weight 79.8 kg (175 lb 14.8 oz) 06/25/2020 5:05 AM EDT Height 157.5 cm (5' 2) 06/24/2020 9:01 AM EDT Body Mass Index 32.18 06/24/2020 9:01 AM EDT documented in this encounter Discharge Summaries * Inez Cartagena, OBI - 06/25/2020 1:37 PM EDT Discharge Summary Patient Name: Shannan Thomas Patient Age: 79 y.o. Language: Burundian Race: White Ethnicity: Not nor Admit date: 06/24/2020 Discharge date and time: 06/25/2020 2:04 PM Attending Physician: Maria L Chawla MD, Benoit Schumacher MD Discharge Physician: Maria L Chawla MD Follow-up Recommendations for Providers: Shannan Thomas is a 79 year old female admitted for BAV for severe . 1. Monitor HR and BP, metoprolol dose reduced to 200 mg daily, adjust prn in outpatient setting 2. Monitor weight and fluid status, d/c weight 79.8 kg, Lasix d/c'd, may need to be restarted at outpatient follow up 3. Follow up with structural heart team 3-6 months with TTE to discuss TAVR 4. Consider DOAC post cholecystectomy Inpatient Provider Contact Information: MD Benoit Arnold MD Sarah Hansen, PA-C Bridget Meador, WATER RESOURCES BUSINESS SEGMENT LEADER Cardiovascular Medicine [phone] Discharge Diagnoses (Hospital Problems) and Secondary Diagnoses (Chronic Problems): Active Hospital Problems Diagnosis ??? Aortic valve stenosis ??? Severe aortic stenosis Resolved Hospital Problems No resolved problems to display. Active Non-Hospital Problems Diagnosis ??? Aortic stenosis - moderate ??? Atrial fibrillation--- paroxysmal ??? 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 Cholecystitis ??? Type 2 diabetes mellitus ??? Hypertension ??? Hyperlipidemia ??? Arthritis ??? Actinic keratosis ??? Seborrheic keratosis Operations/Major Procedures: Operations: Procedure(s): CARDIAC CATHETERIZATION TRICUSPID CLIP BALLOON AORTIC VALVULOPLASTY Hemodynamics: Left Heart Pressures Resting: Syst Diast EDP a v m Ao 123 45 74 LV 141 12 Comments: Rt Radial Art Pressure: 117/40 (66). Stenotic Valve Data: Aortic Valve Peak Gradient - 28 Mean Gradient - 54 Hemodynamics After Valvuloplasty: Left Heart Pressures Post Intervention: Syst Diast EDP a v m Ao 163 55 96 LV 179 17 Comments: After first balloon: P-P 19 Mean Gradient: 44.4. Stenotic Valve Data After Valvuloplasty: Aortic Valve Peak Gradient - 19 Mean Gradient - 20 Vascular Access: Vascular Access Management: Manual Compression of the left femoral vein access site was performed. Mechanical Compression of the right radial artery access site was performed. A 6 Fr Perclose was deployed at the right femoral artery access site. This device was successful. Manual Compression of the right femoral artery access site was performed. Conclusions: * Severe aortic stenosis * Valvuloplasty was performed * Successful balloon aortic valvuloplasty. Complications/Events: The patient had no complications during these procedures. Comments: Valvuloplasty Balloon: 18mmx4.5cm True Dilitation Balloon, Lot#[id number]. 2nd Balloon 20mmx4.5cm True Dilitation Balloon Lot#[id number]. Ultrasound and fluoroscopy used to select vascular access location. See description of arteries under access site management. Visualization of front wall puncture and confirmation of wire entry above femoral bifurcation and below inferior epigastric. Percutaneous access with Preclose technique: one Perclose placed, followed by heparin bolus (weight based, 80-100 units/kg to maintain ACT greater than 250 seconds) followed by the THV e-sheath (the sheath is 14 Fr for 23/26 mm valves, and 16 Fr for 29 mm valve) over a Alina wire. RRA 5 Fr. Sheath. Left FV 5 Fr. Sheath, through which a 5 Fr balloon-tipped pacemaker was placed to RV apex under fluoroscopy; pacing thresholds confirmed, pacer secured. Pacer set to back up 40 bpm, burst pacing at 180 bpm, 10 mA. The aortic valve was crossed with a 6 Fr AL1 catheter and straight wire; this was then exchanged for a 0.035 Amplatz extra stiff guidewire with LV curve placed retrograde across the aortic valve. Balloon aortic valvuloplasty was performed during rapid ventricular pacing with an 18, and then 20 mm x 4 cm Noe valvuloplasty balloon. Between inflations, TTE performed showing stable trace to mild AR, no pericardial effusion, and invasive gradients showing drop from 54 mmHg to 44 mmHg to 20 mmHg. The delivery sheath was withdrawn over a wire and Perclose was performed successfully. Manual pressure was used for the venous site. Excellent hemostasis. Sterile dressings were applied and the patient was then transferred to the CRU in stable condition for recovery. Successful balloon aortic valvuloplasty. Studies: Echo 04/20/20 SUMMARY: 1. Mild concentric left ventricular hypertrophy is observed. ??There is normal global left ventricular systolic function. ??The quantitative left ventricular ejection fraction by biplane Olivera's method is 59%. ??There are no left ventricular segmental wall motion abnormalities. 2. The left atrium is moderately dilated. 3. The aortic valve is probably tricuspid. ??All leaflets appear calcified/thickened with reduced excursion. ??There is severe aortic valve stenosis. ??The calculated aortic valve area is 0.8 cm2. The mean trans-valvular gradient across ??the aortic valve is only 12 mmHg, but low SVI is noted and the Doppler gradients may be under-estimated. ??Mild (1+/4+) aortic valve regurgitation is present. 4. The mitral valve leaflets are mildly thickened. ??There is mitral annular calcification. ??The mean gradient across the mitral valve is 5 mmHg. ??There is mild (1+/4+) mitral regurgitation present. 5. Other details as below. 6. IMPRESSION: The aortic valve appears severely stenotic despite low gradients. ??Suspect gradients are under-estimated and/or impacted by low stroke volume index (23 ml/m2). ?? History of Presentation: Shannan Thomas is a 79 y.o. female referred for cardiac catheterization by Dr Renae as inpatient provider for evaluation of aortic valve stenosis and consideration of aortic valvuloplasty. ?? Mrs Thomas has a medical history significant coronary artery disease with recent PCI 04/21/2020 on aspirin and plavix, severe aortic valve stenosis undergoing TAVR work up and choleostomy bag in place with pending cholecystectomy, recent onset atrial fibrillation on amiodarone, hypertension, hyperlipidemia and arthritis. ?? She was hospitalized recently for heart failure symptoms and worsening . Her work up has been strategized around timeline for SAVR vs TAVR then cholecystectomy, or valvuloplasty then david procedure, then TAVR. ?? Diabetic on insulin. ? There have not been any changes in health status since last seen in clinic. No fevers, no chills, no bleeding. Please see recent outpatient clinic note for comprehensive physical and history documentation. Hospital Course: Severe aortic stenosis, s/p balloon valvuloplasty Ms. Thomas underwent an balloon aortic valvuloplasty on 06/24. The procedure was without complications and she was admitted to the cardiology service following the procedure for monitoring. She did well and echo the following morning showed CORINE 0.92 cm2 with mean gradient 18 mmHg. She was continued on her home medications, with the following changes: metoprolol succinate was reduced from 300 mg daily to 200 mg daily as her heart rates were in the 60s post- procedure, and Lasix was discontinued as her LVEDP was 12 during the procedure (she reportedly had not started taking Lasix prior to admission). These medications may need to be adjusted in the outpatient setting. Her discharge weight was79.8 kg. She will need to recover from this procedure for at least 7-14 days prior to having her cholecystectomy. This has been communicated with her surgeon. Functional and Cognitive Status: Alert and oriented, ambulatory / at baseline Important Studies and Lab Data: Labs: Lab Results Component Value Date WBC 5.7 06/25/2020 HGB 7.8 (L) 06/25/2020 HCT 27.1 (L) 06/25/2020 PLATELET 240 06/25/2020 No results for input(s): INR in the last 168 hours. Lab Results Component Value Date NA 139 06/25/2020 K 3.6 06/25/2020 CL 108 (H) 06/25/2020 CO2 23 06/25/2020 BUN 10 06/25/2020 CREATININE 0.73 06/25/2020 Recent Labs 04/22/20 0350 TSH 1.22 Recent Labs 04/22/20 0350 HA1C 8.5* No results for input(s): CK, TROPONINT in the last 168 hours. Lab Results Component Value Date CHLPL 104 04/22/2020 HDL 17 04/22/2020 CHOLHDL 6.1 04/22/2020 TRIG 237 04/22/2020 LDLCHOL 40 04/22/2020 LDLDIRECT 73 02/28/2017 Pending Studies and Lab Data: None Discharge Conditions/Prognosis: Stable Discharge to: Home with VNA Updated Allergies/ADRs: No Known Allergies Immunizations Given this Hospitalization: There is no immunization history on file for this patient. Discharge Medications: Your Medications Continued medications with new dosing Dose Details metoprolol succinate XL 100 mg Tablet sr Commonly known as: Toprol-XL Take 2 tablets by mouth nightly. What changed: how much to take 200 mg Quantity: 30 tablet Refills: 12 Continued medications, unchanged Dose Details AMIOdarone 200 mg Tab Commonly known as: Cordarone; Pacerone Take 1 tablet by mouth 2 times daily. 200 mg Quantity: 30 tablet Refills: 11 aspirin 81 mg Chew Take 81 mg by mouth daily. 81 mg Quantity: 30 tablet Refills: 3 bisacodyl EC 5 mg Tbec Commonly known as: Dulcolax Take 2 tablets by mouth daily as needed for Constipation. 10 mg Quantity: 30 tablet Refills: 0 blood sugar diagnostic strips Strp Commonly known as: OneTouch Ultra Test 1 each by Other route 3 times daily (before meals). Diag code E10.65 1 each Quantity: 300 each Refills: 3 Blood-Glucose Meter [facility] One [place] Ultra Brand, 250.02. Quantity: 1 each Refills: 0 clopidogreL 75 mg Tab Commonly known as: Plavix Take 1 tablet by mouth daily. 75 mg Quantity: 90 tablet Refills: 3 dulaglutide 0.75 mg/0.5 mL Pnij Inject 0.75 mg subcutaneously once a week. 0.75 mg Quantity: 4 Syringe Refills: 2 fluocinolone acetonide 0.01 % Soln Commonly known as: SYNALAR Apply twice daily to itchy areas and scalp Quantity: 60 mL Refills: 3 insulin glargine 100 unit/mL (3 [...] as needed. Quantity: 200 each Refills: 3 losartan 25 mg Tab Commonly known as: Cozaar Take 1 tablet by mouth daily. 25 mg Quantity: 90 tablet Refills: 3 metroNIDAZOLE 0.75 % Crea Commonly known as: METROCREAM Apply twice daily to face after washing Quantity: 45 g Refills: 3 minocycline 100 mg Cap Commonly known as: Minocin;Dynacin Take one capsule by mouth just before bedtime for 1 week. Then 1 capsule by mouth twice daily. Quantity: 60 capsule Refills: 1 oxyCODONE 5 mg Tab Commonly known as: Roxicodone Take 1 tablet by mouth every 4 hours as needed for Pain. 5 mg Quantity: 3 tablet Refills: 0 pantoprazole EC 40 mg Tbec [...] 20 mg Quantity: 90 tablet Refills: 3 Victoza 2-Isabel 0.6 mg/0.1 mL (18 mg/3 mL) Pnij inject 1.2 milligram subcutaneously daily Generic drug: liraglutide Refills: 0 Vitamin D 25 mcg (1,000 unit) Cap take 1 capsule by mouth daily Generic drug: cholecalciferol (Vitamin D3) Refills: 0 Vitamins B Complex Tab take 1 capsule by mouth once daily Generic drug: b complex vitamins Refills: 0 STOPPED Medications furosemide 20 mg Tab Commonly known as: Lasix Smoking Status at Discharge: Social History Tobacco Use Smoking Status Never Smoker Smokeless Tobacco Never Used Instructions Given to Patient at Discharge: There are no outpatient Patient Instructions on file for this admission. General Instructions Call your doctor if: Chest pain, dyspnea, pain or swelling in legs occurs If you have non-emergent questions, prior to your follow-up visit call: Sunday-Sunday between the hours of 8A-5PM please call the Cardiology Clinic [phone] to speak with a nurse. All other hours please call the Hospital Manager Market Development [phone] and ask to speak to the shallot packer on-call. Return to work: One week Driving: No driving for 48 hours after cath Follow up Appointments: Doctor Where Phone # Date Time PCP Reshma Baig MD [address] [place] [address] Thursday, July 02, [address] Baig's BRIDGE DESIGN ENGINEER 9:00 am (please arrive by 8:45 am) Combatant Swimmer-- Dr. Galindo [facility] Cardiology office [phone] Monday, July 13, 2020 10:40 am Home oxygen therapy: N/A Arrangements for VNA/home care: N/A Future Appointments and Orders Future Orders Complete By Expires Referral to Home Health - at DISCHARGE [FDT9259 CPT(R)] As directed Process Instructions: Scheduling Instructions: Comments: DOCUMENTATION FOR VNA SERVICES (INCLUDING THOSE PATIENTS WITH MEDICARE COVERAGE REQUIRING HOME VNA SERVICES AND/OR HOSPICE SERVICES) PATIENT'S LOCATION: Shannan Francis [address] [address] (home) Cell: Telephone Information: Galvanizing Pot Runner's Name: Patient In discussion with the attending physician, it is certified that this patient is under their care and that they, or a Nurse Practitioner,Clinical Nurse specialist or Physician Compensation Associate who is working directly with them, had a face to face encounter that meets the physician face to face encounter requirements with this patient on 06/25/20 (MD please enter DC date here) The encounter with the patient was in whole, or in part, for the following medical condition, whichis the primary reason for home health care services: balloon valvoplasty In discussion with the provider, it is certified that, based on their findings, the following services are medically necessary for home health services. To provide the following care/treatments with the clinical findings supporting the need for services as follows: HOME CARE ORDERS: RN ORDERS:Assess vital signs, cardiopulmonary status, nutrition, hydration, elimination, meds effectiveness and management; reinforce education re health issues, and any other orders previously in place. HOME HEALTH CARE AGENCY: [facility]. PHONE: [phone] FAX: [phone] Start of care: 24 to 48 hours after discharge FOR MEDICARE ONLY: (please delete this section if not Medicare) In discussion with the attending physician, it is certified that the clinical findings support thatthis patient is homebound because absences from home require considerable and taxing effort due to:requiring the assistance of another person to leave the home Please note that any additional orders needs or changes will need to be obtained from this patient's PCP: Reshma Baig MD [address] / [facility] [address] All A agencies which cover the area of patient's residence have been reviewed, either verbally jaany writing, and patient/family have chosen the home health care agency noted Questions: Agency name and contact information: [facility] Patient location post discharge: home What services are requested: Registered Nurse Start date: Responsible MD post discharge contact info: PCP Discharge References/Attachments None Inez Cartagena, MSN, BOREMATIC OPERATOR-BC, WATER RESOURCES BUSINESS SEGMENT LEADER [facility] [place] Cardiovascular Medicine Associated attestation - Maria L Salazar MD - 06/25/2020 3:23 PM EDT Cardiology Attending Discharge Addendum I was the assigned attending therapist asst for this clinical encounter. For the purposes of billing,I was directly involved in the clinical decision making and the plan of care is reasonable. Please see the full discharge note below for full details. In brief, Shannan Thomas is a 79 y.o. year old female w/ admitted after ballon valvuloplasty. Tolerated procedure well. No s/sx of HF. Post procedure TTE showed CORINE 0.92, mean gradient 18mmHg withEF 72%. Plan to dispo today with outpt followup to discuss TAVR post resolution of gallbladder issues. Lasix was stopped. Please monitor fluid status as this may need to be restarted as outpt. Metoprolol decreased to 200mg QD. Please monitor as outpatient. Please do not hesitate to reach out to me directly with any additional questions regarding this patient's admission or hospital course. My contact information: [place] [address] (office); Pager #[phone] Email: [email or web address] documented in this encounter Discharge Instructions * Discharge Instructions* Inez Cartagena, WATER RESOURCES BUSINESS SEGMENT LEADER - 06/25/2020 1:34 PM EDT Call your doctor if: Chest pain, dyspnea, pain or swelling in legs occurs If you have non-emergent questions, prior to your follow-up visit call: Sunday-Sunday between the hours of 8A-5PM please call the Cardiology Clinic [phone] to speak with a nurse. All other hours please call the Hospital Manager Market Development [phone] and ask to speak to the shallot packer on-call. Return to work: One week Driving: No driving for 48 hours after cath Follow up Appointments: Doctor Where Phone # Date Time PCP Reshma Baig MD [address] [place] [address] Thursday, July 02, [address] Baig's BRIDGE DESIGN ENGINEER 9:00 am (please arrive by 8:45 am) Combatant Swimmer-- Dr. Galindo [facility] Cardiology office [phone] Monday, July 13, 2020 10:40 am Home oxygen therapy: N/A Arrangements for VNA/home care: N/A documented in this encounter Medications at Time [...] mouth daily. 30 tablet 3 05/09/2020 09/10/2020 minocycline (MINOCIN;DYNACIN) 100 mg Capsule Take one capsule by mouth just before bedtime for 1 week. Then 1 capsule by mouth twice daily. 60 capsule 1 02/10/2019 07/14/2020 VICTOZA 2-ISABEL 0.6 mg/0.1 mL (18 mg/3 [...] as of this encounter Progress Notes * Chioma Vann, RN - 06/25/2020 1:51 PM EDT The patient/retail field representative has been provided a list of Home Health Agencies/DME vendors which servetheir preferred geographic area. A letter describing our affiliations was reviewed with them and they were educated about their right to choose where referrals are placed. Provided patient with [facility] Star Quality Rating for Home care hand out. Patient requests referral to [facility]. PHONE: [phone] FAX: [phone] Expected date of discharge: 06/25/20. Referral routed to the Six Pack Loader Operator for matching with agency/vendor and to provide any required information. Chioma Vann RN, MSN Credentialing Assistant - Cardiology Office of Care Management Pager: [phone] Work * Inez Cartagena, WATER RESOURCES BUSINESS SEGMENT LEADER - 06/25/2020 12:38 PM EDT Inpatient Cardiology Transfer of Care Note Patient Name: Shannan Thomas Service: BRIDGE DESIGN ENGINEER / PA Responsible Attending: Maria L Chawla MD Reason for continued hospitalization: Severe s/p BAV 06/24/20 Cholecystitis s/p cholecystostomy awaiting cholecystectomy Likely discharge today Active Problems: Active Hospital Problems Diagnosis ??? Aortic valve stenosis Added automatically from request for surgery [id number] ??? Severe aortic stenosis Resolved Hospital Problems No resolved problems to display. Interval History: Ms. Thomas had an uneventful night. She denies issues this morning. She is eagerfor discharge. Review of Systems: Review of Systems Respiratory: Negative for shortness of breath. Cardiovascular: Negative for chest pain and palpitations. Gastrointestinal: Positive for diarrhea. Musculoskeletal: Positive for back pain (right sided flank/back from GB). Telemetry: 70-90, SR Meds: Scheduled Meds: ??? magnesium oxide 400 mg Oral BID ??? aspirin EC 81 mg Oral Daily ??? AMIOdarone 200 mg Oral BID ??? clopidogreL 75 mg Oral Daily ??? losartan 25 mg Oral Daily ??? metoprolol tartrate 50 mg Oral Q6H BASIL ??? pantoprazole EC 40 mg Oral BID ??? rosuvastatin 20 mg Oral QPM ??? insulin lispro 1-5 Units Subcutaneous TID AC ??? insulin lispro 0-8 Units Subcutaneous TID WC ??? insulin glargine 20 Units Subcutaneous BID Continuous Infusions: PRN Meds:glucose 40% oral geL OR dextrose 10% OR glucagon (human recombinant), acetaminophen Physical Exam: Vital Signs: Last value Range last 12 hrs Temperature Temp: 37 ??C (98.6 ??F) Temp: [36.8 ??C (98.2 ??F)-37.1 ??C (98.8 ??F)] Heart Rate Heart Rate: 68 Heart Rate: [63-68] Blood Pressure BP: 143/49 BP: (143-159)/(49-55) Respiratory Rate Resp: 18 Resp: [18-22] SpO2 SpO2: 96 % SpO2: [96 %-97 %] Patient Vitals for the past 168 hrs: Weight 06/25/20 0505 79.8 kg (175 lb 14.8 oz) 06/24/20 1139 79.4 kg (175 lb 0.7 oz) 06/24/20 0901 79.4 kg (175 lb) Intake/Output Summary (Last 24 hours) at 06/25/2020 1238 Last data filed at 06/25/2020 0654 Gross per 24 hour Intake 1740 ml Output 1050 ml Net 690 ml Physical Exam Constitutional: She is oriented to person, place, and time. She appears well- developed and well-nourished. No distress. HENT: Head: Normocephalic and atraumatic. Eyes: Right eye exhibits no discharge. Left eye exhibits no discharge. Neck: Normal range of motion. Neck supple. No JVD present. Cardiovascular: Normal rate, regular rhythm and intact distal pulses. Murmur (3/6 systolic) heard. Pulmonary/Chest: Effort normal and breath sounds normal. No respiratory distress. She has no wheezes. She has no rales. Abdominal: Soft. Bowel sounds are normal. Cholecystostomy bag in place with green bile drainage Musculoskeletal: Normal range of motion. General: No edema. Neurological: She is alert and oriented to person, place, and time. Skin: Skin is warm and dry. She is not diaphoretic. Right and left groin sites are clean, dry and intact. No hematoma or ooze. Intact distal pedal pulses. Psychiatric: She has a normal mood and affect. Her behavior is normal. Nursing note and vitals reviewed. Lab Comments: Recent Labs 06/25/2013 06/24/20 0840 WBC 5.7 6.6 HGB 7.8* 8.7* HCT 27.1* 29.0* PLATELET 240 257 No results for input(s): INR in the last 168 hours. Recent Labs 06/25/2013 06/24/20 0840 NA 139 137 K 3.6 3.6 CL 108* 102 CO2 23 24 BUN 10 10 CREATININE 0.73 0.83 Recent Labs 06/25/20 0513 AST 15 ALT 12 ALKPHOS 86 BILITOT 0.9 Recent Labs 06/25/20 0513 06/24/20 0840 CALCIUM 8.4* 8.9 MAGNESIUM 0.70 -- No results for input(s): CK, TROPONINT in the last 168 hours. Pertinent Radiographic/Diagnostic Results: Balloon Aortic Valvuloplasty (BAV) 06/24/20 Preoperative diagnosis: Aortic valve stenosis, etiology of cardiac valve disease unspecified [I35.0] ?? Postoperative diagnosis: *Successful BAV for severe aortic stenosis in setting of anticipated cholecystectomy ?? Mean gradient fell from 54 mmHg to 20 mmHg following valvuloplasty with an 18 mm and 20 mm balloon.No complications noted. ?? 1 L fluid given for LVEDP 10 mmHg. LVEDP at close of case 20 mmHg. ?? Recommendations: 1. Continue aspirin and Plavix 2. Ok to hold Plavix 3-5 days prior to cholecystectomy- DO NOT STOP ASPIRIN 3. Begin Plavix TALI after surgery at 75 mg daily 4. I will arrange a follow up appt with the structural heart team in 3-6 months with TTE to reassess valve and need for TAVR 5. She will need to be considered for a DOAC given afib and elevated stroke risk: recommend apixiban 5 mg bid to start after recovery from surgery, at which time we would stop aspirin and continue plavix ?? Procedure: BAV, temp pacing for balloon stability ?? Access: Radial provided poor support for procedural access to aorta. 5 Fr RRA with TR band in place, good hemostasis. 12 Fr RFA with direct visualization with US of front wall puncture, successful 1 perclose with manual hold, no hematoma 5 Fr RFV with US guidance used for pacemaker, manual hold TTE 06/25/20 SUMMARY: ?? 1. Limited for LV function [...] in the 60s. 6. No pericardial effusion. Prior Cardiac Studies: [facility] 04/21/20 Conclusions: * Two vessel coronary artery disease (LAD and RCA) * Mild pulmonary hypertension * Elevated left ventricular end diastolic pressure * Successful stent insertion of the ostial RCA lesion * See Dual Antiplatelet (DAPT) Recommendations above. Echo 04/20/20 SUMMARY: 1. Mild concentric left ventricular hypertrophy is [...] by low stroke volume index (23 ml/m2). Assessment: Shannan Thomas is a 79 y.o. female with a history of severe undergoing TAVR evaluation, CAD s/p ostial RCA PCI 04/21/20 on DAPT, cholecystitis w/ cholecystostomy in place, recent atrial fibrillation on amiodarone and no AC (due to gastritis/GIB), HTN, HLD, and arthritis. She presented for balloon aortic valvuloplasty (BAV) with Dr. Valentin as a bridge to TAVR and to allow for cholecystectomy in the meantime. She underwent the procedure without complications. Follow up echo shows CORINE 0.92 cm2 with mean gradient 18 mmHg. Plan for discharge today. Plan: #Severe aortic stenosis s/p BAV 06/24/20, undergoing TAVR evaluation #Chronic diastolic heart failure Dr. Valentin performed BAV 06/24/20 as bridge to TAVR Echo done this am Hold home lasix 20mg BID, may not require post BAV Continue metoprolol tartrate 50mg q6h (home dose metoprolol succinate 300mg) and losartan 25mg Dr. Valentin will arrange follow up w/ the structural heart team in 3-6 months for TTE and TAVR eval #CAD s/p NSTEMI with ostial RCA PCI 04/21/20 No chest pain Telemetry monitoring Continue aspirin 81mg and Plavix 75mg daily Re-load with Plavix 300mg 06/24 as patient did not take dose this AM, per Elan Merchant PA-C/Dr. Valentin Continue metoprolol tartrate 50mg q6h (home dose metoprolol succinate 300mg), lisinopril 25mg, rosuvastatin 20mg #Acute cholecystitis with cholecystostomy awaiting cholecystectomy Follow up with surgical team once discharged Procedure can not be done for at least 7-14 days from 06/24/20 Reports she is no longer taking antibiotics #Paroxysmal atrial fibrillation not on AC Telemetry No chronic AC due to history of esophagitis/GIB, likely start DOAC post cholecystectomy. Continue metoprolol tartrate 50mg q6h Continue amiodarone 200mg daily #Hypertension BP: (143-159)/(49-55) Continue metoprolol and lisinopril Hold Lasix #Hyperlipidemia Lipid panel 04/22/20: TC 104, HDL 17, TG 237, LDL 40 Continue rosuvastatin 20mg #T2DM A1c 8.5% Continue Lantus 20units BID with SSI and meal associated insulin Patient report she does not take Trulicity or Victoza weekly Code Status: FULL DVT Prophylaxis: SCDs Discussed with Maria L Chawla MD. Inez Cartagena, MSN, BOREMATIC OPERATOR-BC, W[employer] BUSINESS SEGMENT LEADER 06/25/2020 Pager [phone] Associated attestation - Maria L Salazar MD - 06/25/2020 3:24 PM EDT I was the assigned attending therapist asst for this clinical encounter. For the purposes of billing,I was directly involved in the clinical decision making and the plan of care is reasonable. Please see full note below and separate attending note from today for additional details. Maria L Cortes MD MPH [facility] Cardiac Transplant Attending 06/25/2020, 3:24 PM * Maria L Salazar MD - 06/25/2020 8:09 AM EDT Cardiology Service Attending Daily Progress Note Patient: Shannan Thomas : 1940 Date of Admission: 06/24/2020 Reason for Admission: Balloon valvuloplasty LOS: 0 Please see today's progress note from /NICHOLAS Cartagena for full details but in brief: Interval Events: Balloon vulvoplasty yesterday Overnight afebrile, BP 130/40-159/55 HCT 27, PLT 240, no WBC NA 139, K 3.6, Cre 0.73 Current Medications: Scheduled Meds: ??? magnesium sulfate 2 g Intravenous Once ??? potassium chloride ER 40 mEq Oral Once ??? aspirin EC 81 mg Oral Daily ??? AMIOdarone 200 mg Oral BID ??? clopidogreL 75 mg Oral Daily ??? losartan 25 mg Oral Daily ??? metoprolol tartrate 50 mg Oral Q6H BASIL ??? pantoprazole EC 40 mg Oral BID ??? rosuvastatin 20 mg Oral QPM ??? insulin lispro 1-5 Units Subcutaneous TID AC ??? insulin lispro 0-8 Units Subcutaneous TID WC ??? insulin glargine 20 Units Subcutaneous BID Continuous Infusions: PRN Meds:.glucose 40% oral geL OR dextrose 10% OR glucagon (human recombinant), acetaminophen Home Medications: No current facility-administered medications on file prior to encounter. Current Outpatient Medications on File Prior to Encounter Medication Sig Dispense Refill ??? furosemide (Lasix) 20 mg Tablet Take 1 tablet by mouth 2 times daily. 90 tablet 3 ??? rosuvastatin (Crestor) 20 mg Tablet Take [...] 1 capsule by mouth daily 0 ??? VICTOZA 2-ISABEL 0.6 mg/0.1 mL (18 mg/3 mL) Pen Injector inject 1.2 milligram subcutaneously daily0 ??? VITAMINS B COMPLEX Tablet take 1 capsule by mouth once daily 0 ??? oxyCODONE (Roxicodone) 5 mg Tablet Take [...] mouth twice daily. 60 capsule 1 ??? fluocinolone acetonide (SYNALAR) 0.01 % Solution [...] Diag code E10.65 300 each 3 ??? dulaglutide 0.75 mg/0.5 mL Pen Injector Inject 0.75 mg subcutaneously once a week. (Patient nottaking: Reported on 06/18/2020) 4 Syringe 2 ??? insulin glargine (LANTUS SOLOSTAR) Insulin Pen Inject 27 Units subcutaneously 2 times daily. 50mL 3 ??? insulin needles, disposable, 31 gauge x 5/16 Needle Inject 1 each subcutaneously 6 times daily. 10.65 400 each 3 ??? Blood-Glucose Meter Misc One Touch Ultra Brand, 250.02. 1 each 0 ??? Lancets Misc Use twice daily or as needed. 200 each 3 Vitals: Last value Range last 24 hrs Temperature Temp: 37.1 ??C (98.8 ??F) Temp: [36.6 ??C (97.9 ??F)-37.3 ??C (99.1 ??F)] Heart Rate Heart Rate: 66 Heart Rate: [66-79] Blood Pressure BP: 159/55 BP: (94-159)/(42-102) Respiratory Rate Resp: 18 Resp: [16-24] SpO2 SpO2: 96 % SpO2: [93 %-100 %] Weight: Patient Vitals for the past 168 hrs: Weight 06/25/20 0505 79.8 kg (175 lb 14.8 oz) 06/24/20 1139 79.4 kg (175 lb 0.7 oz) 06/24/20 0901 79.4 kg (175 lb) Weight change: In/Out: Intake/Output Summary (Last 24 hours) at 06/25/2020 0809 Last data filed at 06/25/2020 0654 Gross per 24 hour Intake 1740 ml Output 1050 ml Net 690 ml Physical Exam: General: NAD Neck: JVP not elevated cmH20 Cardiac: RRR w/ systolic murmur Chest: CTAB Abdomen: Soft NT ND, +BS Extremities: WWP w/ no sig edema Neuro: AxOx3 Skin: No rashes observed Labs: As above Relevant Cardiac Tests: Pre: Peak Gradient - 28 Mean Gradient - 54 Post: Peak Gradient - 19 Mean Gradient - 20 Assessment: Shannan Thomas is a 79 y.o. year old female admitted on 06/24/2020 with MS d1 s/p successful balloon valvuloplasty. Tolerated procedure well. No e/o HF on exam or by symptoms. Labs stable. Plan: 1. TTE today 2. Restart home meds This visit lasted 35 minutes, of which 30 minutes were spent in direct discussion and counseling with the patient. Maria L Cortes MD MPH [facility] Cardiac Transplant Attending 06/25/2020, 8:09 AM * Sarah Nieto RN - 06/25/2020 7:51 AM EDT Cardiac rehab team reviewed this patient who is s/p BAV. Will will defer referral to cardiac rehab as she is a bridge to TAVR to allow for cholecystectomy. Will f/u with her after TAVR. * Candice Lewis PA - 06/24/2020 2:28 PM EDT Images from the original note were not included. 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 Aortic valve stenosis Added automatically from request for surgery [id number] ??? Severe aortic stenosis Resolved Hospital Problems No resolved problems to display. Interval History: This is a 79 year old female with a with a history of severe undergoing TAVR evaluation, CAD s/postial RCA PCI 8/26/20 on DAPT, cholecystitis w/ cholecystostomy in place, recent atrial fibrillation on amiodarone and no AC (due to gastritis/GIB), HTN, HLD, and arthritis. She presented today for balloon aortic valvuloplasty (BAV) with Dr. Valentin as a bridge to TAVR and to allow for cholecystectomy in the meantime. She underwent the procedure without complications. Of note, the patient had a prolonged hospitalization 04/19-05/08/2020 for acute cholecystitis unable to undergo surgery due to new severe , ADHF, afib RVR, and NSTEMI s/p PCI. Post procedure, she is feeling well. She denies chest pain or SOB. Denies bilateral groin or right wrist pain at sites of access for procedure. Reports abdominal pain that radiates to her back at site of gallbladder. This pain has been ongoing and is not changing in nature. Reports diarrhea over the past week as well as significant gas. She does not have plans for surgery yet as she was waiting to fix her heart first. No concerns and in agreement for observation overnight. Review of Systems: Review of Systems Constitutional: Negative for chills, diaphoresis and fever. Respiratory: Negative for cough and shortness of breath. Cardiovascular: Negative for chest pain, palpitations and leg swelling. Gastrointestinal: Positive for abdominal pain (RUQ/back) and diarrhea. Negative for abdominal distention, nausea and vomiting. Genitourinary: Negative for dysuria. Musculoskeletal: Positive for back pain (right sided flank/back from GB). Neurological: Negative for syncope and headaches. Telemetry: 60-70, NSR Meds: Scheduled Meds: ??? [START ON 06/25/2020] aspirin EC 81 mg Oral Daily ??? AMIOdarone 200 mg Oral BID ??? [START ON 06/25/2020] clopidogreL 75 mg Oral Daily ??? [START ON 06/25/2020] losartan 25 mg Oral Daily ??? metoprolol tartrate 50 mg Oral Q6H BASIL ??? pantoprazole EC 40 mg Oral BID ??? rosuvastatin 20 mg Oral QPM ??? insulin lispro 1-5 Units Subcutaneous TID AC ??? insulin lispro 0-8 Units Subcutaneous TID WC ??? insulin glargine 20 Units Subcutaneous BID ??? clopidogreL 300 mg Oral Once Continuous Infusions: PRN Meds:atropine, glucose 40% oral geL OR dextrose 10% OR glucagon (human recombinant), acetaminophen Physical Exam: Vital Signs: Last value Range last 12 hrs Temperature Temp: 37.2 ??C (99 ??F) Temp: [36.6 ??C (97.9 ??F)-37.2 ??C (99 ??F)] Heart Rate Heart Rate: 73 Heart Rate: [67-79] Blood Pressure BP: 125/52 BP: (94-153)/(42-102) Respiratory Rate Resp: 20 Resp: [16-24] SpO2 SpO2: 98 % SpO2: [93 %-100 %] Patient Vitals for the past 168 hrs: Weight 06/24/20 1139 79.4 kg (175 lb 0.7 oz) 06/24/20 0901 79.4 kg (175 lb) Intake/Output Summary (Last 24 hours) at 06/24/2020 1617 Last data filed at 06/24/2020 1414 Gross per 24 hour Intake 1000 ml Output -- Net 1000 ml Physical Exam Constitutional: She is oriented to person, place, and time. She appears well- developed and well-nourished. No distress. HENT: Head: Normocephalic and atraumatic. Mouth/Throat: Oropharynx is clear and moist. Eyes: Conjunctivae and EOM are normal. Neck: Normal range of motion. Neck supple. Cardiovascular: Normal rate and intact distal pulses. Murmur heard. Pulmonary/Chest: Effort normal and breath sounds normal. No respiratory distress. She has no wheezes. She has no rales. CTA anteriorly Abdominal: Soft. Bowel sounds are normal. She exhibits no distension. Cholecystostomy present Musculoskeletal: General: No edema. Neurological: She is alert and oriented to person, place, and time. Skin: Skin is warm and dry. She is not diaphoretic. Right and left femoral access sites clean, dry, intake without obvious bleeding or hematoma. Right radial access with TR band in place, no active bleeding. Psychiatric: She has a normal mood and affect. Nursing note and vitals reviewed. Lab Comments: Recent Labs 06/24/20 0840 WBC 6.6 HGB 8.7* HCT 29.0* PLATELET 257 No results for input(s): INR in the last 168 hours. Recent Labs 06/24/20 0840 NA 137 K 3.6 CL 102 CO2 24 BUN 10 CREATININE 0.83 No results for input(s): AST, ALT, ALKPHOS, BILITOT, BILIDIR in the last 168 hours. Recent Labs 06/24/20 0840 CALCIUM 8.9 No results for input(s): CK, TROPONINT in the last 168 hours. Pertinent Radiographic/Diagnostic Results: Balloon Aortic Valvuloplasty (BAV) 06/24/20 Preoperative diagnosis: Aortic valve stenosis, etiology of cardiac valve disease unspecified [I35.0] ?? Postoperative diagnosis: *Successful BAV for severe aortic stenosis in setting of anticipated cholecystectomy ?? Mean gradient fell from 54 mmHg to 20 mmHg following valvuloplasty with an 18 mm and 20 mm balloon.No complications noted. ?? 1 L fluid given for LVEDP 10 mmHg. LVEDP at close of case 20 mmHg. ?? Recommendations: 1. Continue aspirin and Plavix 2. Ok to hold Plavix 3-5 days prior to cholecystectomy- DO NOT STOP ASPIRIN 3. Begin Plavix TALI after surgery at 75 mg daily 4. I will arrange a follow up appt with the structural heart team in 3-6 months with TTE to reassess valve and need for TAVR 5. She will need to be considered for a DOAC given afib and elevated stroke risk: recommend apixiban 5 mg bid to start after recovery from surgery, at which time we would stop aspirin and continue plavix ?? Procedure: BAV, temp pacing for balloon stability ?? Access: Radial provided poor support for procedural access to aorta. 5 Fr RRA with TR band in place, good hemostasis. 12 Fr RFA with direct visualization with US of front wall puncture, successful 1 perclose with manual hold, no hematoma 5 Fr RFV with US guidance used for pacemaker, manual hold Prior Cardiac Studies: [facility] 04/21/20 Conclusions: * Two vessel coronary artery disease (LAD and RCA) * Mild pulmonary hypertension * Elevated left ventricular end diastolic pressure * Successful stent insertion of the ostial RCA lesion * See Dual Antiplatelet (DAPT) Recommendations above. Echo 04/20/20 SUMMARY: 1. Mild concentric left ventricular hypertrophy is [...] by low stroke volume index (23 ml/m2). Assessment: Shannan Thomas is a 79 y.o. female with a history of severe undergoing TAVR evaluation, CAD s/p ostial RCA PCI 04/21/20 on DAPT, cholecystitis w/ cholecystostomy in place, recent atrial fibrillation on amiodarone and no AC (due to gastritis/GIB), HTN, HLD, and arthritis. She presented today for balloon aortic valvuloplasty (BAV) with Dr. Valentin as a bridge to TAVR and to allow for cholecystectomy in the meantime. She underwent the procedure without complications. Plan toobserve overnight. Plan: #Severe aortic stenosis s/p BAV 06/24/20, undergoing TAVR evaluation #Chronic diastolic heart failure Dr. Valentin performed BAV 06/24/20 as bridge to TAVR in the future Echo in the AM Hold home lasix 20mg BID, may not require post BAV Continue metoprolol tartrate 50mg q6h (home dose metoprolol succinate 300mg) and losartan 25mg Dr. Valentin will arrange follow up w/ the structural heart team in 3-6 months for TTE and TAVR eval #CAD s/p NSTEMI with ostial RCA PCI 04/21/20 No chest pain Telemetry monitoring Continue aspirin 81mg and Plavix 75mg daily Re-load with Plavix 300mg 06/24 as patient did not take dose this AM, per Elan Merchant PA-C/Dr. Valentin Continue metoprolol tartrate 50mg q6h (home dose metoprolol succinate 300mg), lisinopril 25mg, rosuvastatin 20mg #Acute cholecystitis with cholecystostomy awaiting cholecystectomy Follow up with surgical team once discharged Procedure can not be done for at least 1 week from 06/24/20 Reports she is no longer taking antibiotics #Paroxysmal atrial fibrillation not on AC Telemetry No chronic AC due to history of esophagitis/GIB. Likely start DOAC post cholecystectomy. Continue metoprolol tartrate 50mg q6h Continue amiodarone 200mg daily #Hypertension BP: (94-153)/(42-102) Continue metoprolol and lisinopril Hold Lasix #Hyperlipidemia Lipid panel 04/22/20: TC 104, HDL 17, TG 237, LDL 40 Continue rosuvastatin 20mg #T2DM A1c 8.5% Continue Lantus 20units BID (reduced from 27 units as NPO 06/24) with SSI and meal associated insulin Patient report she does not take Trulicity or Victoza weekly Code Status: FULL DVT Prophylaxis: SCDs Discussed with Esau Valentin MD;Benoit Ravi* Candice Lewis PA-C Pager #[phone] 06/24/2020 Associated attestation - Benoit Schumacher MD - 06/24/2020 6:34 PM EDT Admitted overnight for monitoring post aortic BAV. Hemodynamically stable and access sites without hematoma or bruising. Discussed case with Dr. Valentin. Plan: -reload with plavix and then continue DAPT -fluid hydration if necessary given diarrhea at home -hold lasix -split home metoprolol -TTE tomorrow, walk around, and likely discharge after that if normal. documented in this encounter H&P Notes * Dago Merchant PA - 06/24/2020 11:26 AM EDT Patient Name: Shannan Thomas Patient Age: 79 y.o. Birthdate: 1940 Admit date: 06/24/2020 Attending Physician: Esau Valentin MD [facility] Interventional Cardiology Adult Pre-Procedure H&P Update: Mrs Shannan Thomas (Gladis) [id number] 1940 Chief Complaint: dyspnea, fatigue, severe aortic valve stenosis HPI: Shannan Thomas is a 79 y.o. female referred for cardiac catheterization by Dr Renae as inpatient provider for evaluation of aortic valve stenosis and consideration of aortic valvuloplasty. Mrs Thomas has a medical history significant coronary artery disease with recent PCI 04/21/2020 on aspirin and plavix, severe aortic valve stenosis undergoing TAVR work up and choleostomy bag in place with pending cholecystectomy, recent onset atrial fibrillation on amiodarone, hypertension, hyperlipidemia and arthritis. She was hospitalized recently for heart failure symptoms and worsening . Her work up has been strategized around timeline for SAVR vs TAVR then cholecystectomy, or valvuloplasty then david procedure, then TAVR. Diabetic on insulin. There have not been any changes in health status since last seen in clinic. No fevers, no chills, no bleeding. Please see recent outpatient clinic note for comprehensive physical and history documentation. Planned Procedure: aortic valvuloplasty Cardiac History: a fib HTN Hyperlipidemia DM Other Pertinent Medical History: SOCIAL Hx: Lives alone in [facility]. 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 furosemide (Lasix) 20 mg Tablet Take 1 tablet by mouth 2 times daily. 90 tablet 3 ??? rosuvastatin (Crestor) 20 mg Tablet Take [...] 1 capsule by mouth daily 0 ??? VICTOZA 2-ISABEL 0.6 mg/0.1 mL (18 mg/3 mL) Pen Injector inject 1.2 milligram subcutaneously daily0 ??? VITAMINS B COMPLEX Tablet take 1 capsule by mouth once daily 0 PHYSICAL: BP 126/42 Pulse 67 Temp 36.6 ??C (97.9 ??F) (Temporal) Resp 16 Ht 157.5 cm (5' 2) Wt 79.4 kg (175 lb) SpO2 99% BMI 32.01 kg/m?? Gen: Alert, comfortable appearing, female obese supine in NAD HEENT: EOMI, MMM Neck: Supple, no JVD CV: systolic murmur appreciated, normal S1/S2, PMI not palpated Resp: CTAB, no W/R/R Abd: Soft, NT/ND, +BS Ext: No edema, clubbing, or cyanosis. Warm and well perfused. Neuro: CN grossly intact, moving all extremities Psych: Appropriate affect Pulses: 2+ bilateral radial pulses, right hand natalie's test demonstrates adequate reperfusion via ulnar artery alone, Barbeau test to be done in procedure room, 2+ bilateral femoral pulses, no femoral bruit appreciated, 2+ bilateral DP pulses Pre-Sedation Assessment: Previous Sedation/Anesthesia: yes Previous Adverse Reactions: none Alcohol: none Drugs: none Mallampati: II (soft palate, uvula, fauces visible) Mallampati Class: 2 ASA Class: III Sedation Plan: Moderate Sedation, IV conscious sedation with fentanyl and midazolam. Labs reviewed and notable for: Lab Results Component Value Date WBC 6.6 06/24/2020 HGB 8.7 (L) 06/24/2020 HCT 29.0 (L) 06/24/2020 MCV 83.8 06/24/2020 PLATELET 257 06/24/2020 Lab Results Component Value Date CREATININE 0.83 06/24/2020 BUN 10 06/24/2020 NA 137 06/24/2020 K 3.6 06/24/2020 CL 102 06/24/2020 CO2 24 06/24/2020 Lab Results Component Value Date INR 1.3 04/23/2020 Assessment/Plan: 79 y.o. female here for cardiac catheterization for severe aortic stenosis. Will proceed with valvuloplasty. - proceed as planned - consent signed -no apparent contraindication to DAPT, patient denies upcoming or planned procedures/operations, and denies ongoing or recent bleeding events - FULL code -12-Lead ECG reviewed -Labs Reviewed: I have personally discussed the procedure, including benefits and risks, with the patient who agrees to proceed. The indications for the catheterization, the expected benefits, and the possible riskswere reviewed in detail with the patient. The potential for , heart attack, stroke, kidney failure, bleeding, allergic reaction, vascular complications and infection as well as other potential complications were reviewed. The possibility of stenting and other percutaneous interventions, with associated risk, was reviewed. The potential need for emergent coronary artery bypass surgery was reviewed. Alternatives were discussed and the patient's questions were answered in full. Following thisdiscussion, the patient consented to the procedure and signed a form attesting to this, which is inthe chart [facility] Interventional Cardiology 06/24/20 11:26 AM [facility] Pager: [phone] documented in this encounter Miscellaneous Notes * Initial Assessments - Chioma Vann RN - 06/25/2020 10:47 AM EDT Office of Care Management Initial Assessment and Discharge Note Chioma Vann RN reviewed record and discussed patient with Care Team. Source of Information: Team, bedside nurse, medical record, and Introduced self/reviewed role; services accepted. Reason for Hospitalization: Reason for Admission as Stated by Patient: valve repair Last COVID test date and time: 06/22/20 neg Past medical History: Past Medical History: Diagnosis Date ??? Diabetes ??? Severe aortic stenosis Hospitalizations Within the Past 30 Days: Hospitalizations in past 30 days: 0 Anticipated Length Of Stay (If known): Expected Length of Hospitalization: 2 Current Decision-Making Capacity: Decision Maker: Self Advance Care Planning: Attempt Cardiopulmonary Resuscitation - Inpatient <no information> -Advanced Directive: No, declines If AD's have not been completed adult children would be surrogate decision maker per [place] surrogate decision making law. (Only good for 90 days) Any patient receiving care at [facility] must abide by [place] law. The hierarchy for surrogate decision making is: (a) Patient???s spouse, or civil union partner or common law spouse unless there is a divorce proceeding, separation agreement, or restraining order limiting that person???s relationship with the patient. (b) Any adult son or daughter of the patient. (c) Either parent of the patient. (d) Any adult brother or sister of the patient. (e) Any adult grandchild of the patient. (f) Any grandparent of the patient. (g) Any adult aunt, uncle, niece, or nephew of the patient. (h) A close friend of the patient. (i) The agent with financial power of trademark attorney or a conservator appointed in accordance with RSA 464-A. (j) The guardian of the patient???s estate. Current Coping/Education/Information Needs: Confirms that providers have been good about communicating information to them and denies current questions. Current Functional Ability: Current Functional Status: Independent Functional Status Prior to Admission: Prior Functional Status: Independent Home Environment: Lives With: alone. Living Arrangements: apartment. . Current DME: None DME Needed at DC: None Home Address confirmed as: [address] [facility] [address] Social & Family Supports: All names listed below confirmed with patient as current and correct. Extended Emergency Contact Information Primary Emergency Contact: NATTY REDMAN Mobile Relation: Child Secondary Emergency Contact: [place] [address] [facility] Mobile Relation: None Community Resources being provided currently: Outpatient/Agency/Support Group Needs: (none) Behavioral Health History: Current or Prior Mental Health History: none noted Other Pertinent/Service Specific Information: No Health/Prescription Coverage: Primary Insurance: [employer] [place] Payor: [employer] [place] / Plan[place] / Product Type: *No Product type* / Secondary Insurance: MEDICARE Prescription Coverage: yes Preferred Pharmacy: [id number] - [place], [place] - [address] [address] [facility] [id number] [facility] - [place], [place] - [facility] [address] [facility]- [place], [place] - [address] [facility] [address] [facility] [address] Primary Care Provider: Reshma Baig MD [phone] Patient/Caregiver Goals of Treatment: DC home Potential Needs for Transition of Care: Services Anticipated at Discharge: none Transportation: Transportation Available: family or friend will provide(daughter) Anticipated Barriers to Discharge/Special Considerations: None noted or presented to CM at this time. Assessment: Patient is admitted to cardiology service for severe aortic stenosis and here for Balloon valvuloplasty Plan: Patient with no apparent RNCM/SW needs at this time. No housing, transportation, insurance, resources concerns identified at this time. Supports in place to achieve a safe post-hospital transition. No identified barriers to accessing necessary care and/or follow-up after discharge. A member of the Care Management team will continue to monitor progress, follow for continuity of care and assist with transition of care planning. Chioma Vann RN, MSN, elevator starter Office of Care Management Pager: [phone] Work * Plan of Care - Wendie Fajardo MD - 06/25/2020 6:41 AM EDT Post Cardiac Cath Note S: Patient reports no chest pain or shortness of breath. Patient reports no back pain or bilateral groin pain. Left groin soreness. (FV access) O: No active bleeding noted at cath site (RFA). No hematoma, or tenderness noted. Pedal pulses intact. Last value Range last 8 hrs Temperature Temp: 37.1 ??C (98.8 ??F) Temp: [36.7 ??C (98.1 ??F)-37.1 ??C (98.8 ??F)] Heart Rate Heart Rate: 66 Heart Rate: [66-70] Blood Pressure BP: 159/55 BP: (146-159)/(55-60) Respiratory Rate Resp: 18 Resp: [18-20] SpO2 SpO2: 96 % SpO2: [96 %-97 %] A/P. Post cardiac cath without complications. Wendie Fajardo MD 06/25/2020 * Brief Op Note - Esau Valentin MD - 06/24/2020 2:10 PM EDT Brief Operative Note Patient Name: Shannan Thomas : [id number] MR#: [id number] Case Date: 06/24/2020 Surgeon: Surgeon(s) and Role: * Esau Valentin MD - Primary * Dago Merchant PA - Physician Compensation Associate Preoperative diagnosis: Aortic valve stenosis, etiology of cardiac valve disease unspecified [I35.0] Postoperative diagnosis: *Successful BAV for severe aortic stenosis in setting of anticipated cholecystectomy Mean gradient fell from 54 mmHg to 20 mmHg following valvuloplasty with an 18 mm and 20 mm balloon.No complications noted. 1 L fluid given for LVEDP 10 mmHg. LVEDP at close of case 20 mmHg. Recommendations: 1. Continue aspirin and plavix 2. Ok to hold plavix 3-5 days prior to cholecystectomy- DO NOT STOP ASPIRIN 3. Begin plavix tali after surgery at 75 mg daily 4. I will arrange a follow up appt with the structural heart team in 3-6 months with TTE to reassess valve and need for TAVR 5. She will need to be considered for a DOAC given afib and elevated stroke risk: recommend apixiban 5 mg bid to start after recovery from surgery, at which time we would stop aspirin and continue plavix Procedure: BAV, temp pacing for balloon stability Access: Radial provided poor support for procedural access to aorta. 5 Fr RRA with TR band in place, good hemostasis. 12 Fr RFA with direct visualization with US of front wall puncture, successful 1 perclose with manual hold, no hematoma 5 Fr RFV with US guidance used for pacemaker, manual hold After sedation (2 midaz and 50 fent) transient pressures systolic 75 mmHg, treated quickly with levo, stable pressures at 120 mmHg. Then, after BAV, systemic pressure 190 mmHg. The patient tolerated the procedures smoothly and was transferred from the cardiac catheterization lab to the next level of care in stable condition, without pain. No evident early complications. Results sent to Dr Rosenthal and Dr Brewer and Dr Cain and discussed with the patient and their family. A time-out was conducted prior to the start of the procedure to verify the correct patient and procedure, procedure location, and all relevant critical information. Full report to follow. ESAU VALENTIN MD documented in this encounter Plan of Treatment Not on file documented as of this encounter Procedures Procedure Name Priority Date/Time Associated Diagnosis Comments POCT GLUCOSE Routine 06/25/2020 11:55 AM EDT ECHO LMTD W/O CONTRAST W LMTD SPEC DOPP COLOR DOPP Routine 06/25/2020 10:56 AM EDT Aortic valve stenosis, etiology of cardiac valve disease unspecified POCT GLUCOSE Routine 06/25/2020 7:39 AM EDT EKG 12-LEAD Routine 06/25/2020 7:16 AM EDT Paroxysmal atrial fibrillation CMP W/FASTING GLUCOSE Routine 06/25/2020 5:13 AM EDT HEMOGRAM Routine 06/25/2020 5:13 AM EDT DIFFERENTIAL, AUTOMATED Routine 06/25/20 20 5:13 AM EDT HC CBC,PLT & AUTO DIFF Routine 0 5:13 AM EDT HC MAGNESIUM, SERUM Routine 06/25/2020 5 :13 AM EDT POCT GLUCOSE Routine 06/24/2020 9:03 PM EDT POCT GLUCOSE Routine 06/24/2020 3:59 PM EDT EKG 12-LEAD Routine 06/24/2020 2:28 PM EDT Aortic valve stenosis, etiology of cardiac valve disease unspecified CARDIAC CATHETERIZATION Routine 06/24/20 2:13 PM EDT Aortic valve stenosis, etiology of cardiac valve disease unspecified POCT GLUCOSE Routine 06/24/2020 12:53 PM EDT POCT GLUCOSE Routine 06/24/2020 9:18 AM EDT EKG 12-LEAD Routine 06/24/2020 9:15 AM EDT Aortic valve stenosis, etiology of cardiac valve disease unspecified HEMOGRAM Routine 06/24/2020 8:40 AM EDT Aortic valve stenosis, etiology of cardiac valve disease unspecified DIFFERENTIAL, AUTOMATED Routine 06/24/20 8:40 AM EDT Aortic valve stenosis, etiology of cardiac valve disease unspecified HC CBC,PLT & AUTO DIFF Routine 0 8:40 AM EDT Aortic valve stenosis, etiology of cardiac valve disease unspecified HC VENIPUNCTURE Routine 06/24/2020 8:40 AM EDT Aortic valve stenosis, etiology of cardiac valve disease unspecified documented in this encounter Results * POCT Glucose (06/25/2020 11:55 AM EDT) POC Glucose 177 65 - 199 mg/dL [facility] Comment: Supplemental ranges: <140 mg/dL before meals <180 mg/dL all other times of the day Blood specimen (specimen) 06/25/2020 11:55 AM EDT 06/25/2020 11:55 AM EDT Maria L Chawla MD POINT OF CAR E TEST ORDERABLES [facility] [place] [address] * ECHO LMTD W/O CONTRAST W LMTD SPEC DOPP COLOR DOPP (06/25/2020 10:56 AM EDT) EF 72 HEARTLAB SYSTEM Anatomical Region Laterality Modality Other 06/25/2020 Narrative 06/25/2020 11:17 AM EDT Procedure: ?Transthoracic Echocardiogram Patient: ?WILLIAM SHANNAN A ? (Age): 1940(79y) Med Rec#: ? [id number] ?Sex: ?F ? [place] Loc: ? [facility] [place]Ht / Wt: ??158(cm)/79(kg) Pt. Loc: ?Adult Floor ? BSA: ?1.81 Study Date: ?? 06/25/2020 ?Pt. Type: Inpatient Tape: ? Referring: ESAU VALENTIN J Reading: Alvin Ramos ([id number]) [employer]: Alvin Herrera [facility] Diagnosis: *Nonrheumatic aortic (valve) stenosis (I35.0) *Limited study to assess ventricular function and AoV. BP: ? 147/54 SUMMARY: 1. Limited for LV function and aortic [...] in the 60s. 6. No pericardial effusion. Findings ? : Study Quality: ? Adequate Left Ventricle: ? The left ventricular chamber size is normal. ?Basal septal hypertrophy is observed. ?There is no evidence of LVOT obstruction. ?There is normal global left ventricular systolic function. ?The quantitative left ventricular ejection fraction by biplane Olivera's method is 72%. ?There are no left ventricular segmental wall motion abnormalities. Right Ventricle: ? The right ventricle is normal in size. ?Right ventricular global systolic function is normal. ?The estimated pulmonary artery systolic pressure is 43 mmHg. ?The estimated right atrial pressure is 8 mmHg. Aortic Valve: ? The aortic valve is tricuspid. ?Severe aortic leaflet calcification is visualized. ?Systolic excursion of the aortic valve cusps is reduced. ?There is aortic annular calcification. ?The peak instantaneous trans-valvular gradient across ??the aortic valve is 39 mmHg.Obtained from the apical position with the imaging CW probe. ?The mean trans-valvular gradient across ??the aortic valve is 18 mmHg.DOI 0.26 ?The calculated aortic valve area is 0.65 cm2. ?There is severe aortic valve stenosis. ?There is a trace of aortic regurgitation present. Mitral Valve: ? Moderate mitral leaflet calcification is visualized. ?The papillary muscle heads appear calcified. ?The mitral valve chordae appear calcified. ?There is anterior and posterior mitral annular calcification. ?The mean gradient across the mitral valve is 7 mmHg. ?There is moderate mitral stenosis present. ?There is mild (1+/4+) mitral regurgitation present. Tricuspid Valve: ? The tricuspid valve appears normal in structure and function. ?There is mild to moderate (1-2+/4+) tricuspid regurgitation present. Pericardium: ? The pericardium appears normal and there is no evidence of a pericardial effusion. Aorta: ? The aortic root is normal in size. ?The ascending aorta is normal in size. Venous: ? The inferior vena cava appears normal in size. ?There is less than 50% respiratory change in the inferior vena cava dimension consistent with elevated right atrial pressure. Chambers 2D ?Value ?Units (Range) ? IVSd (2D) ? 1.77 ? cm ? LVPWd (2D) ?0.85 ? cm ? IVS:LVPW ratio (2D) 2.09 ? ratio ? RWT (2D) ?0.64 ? ratio ? RWT PW (2D) ? 0.42 ? ratio ? LVIDd (2D) ?4.08 ? cm ? LVIDs (2D) ?3.19 ? cm ? LVIDd (2D) index ?2.26 ? cm/m2 ? LVIDs (2D) index ?1.77 ? cm/m2 ? LV FS (2D) ?21.81 ?% ? EF Teichholz (2D) ?? 44.59 ?% ? Ao root diameter (2D2.8 ?cm (2.1 - 3.6) ? Ascending Ao ?3.3 ?cm (2 - 3.5) ? Volumes/Mass ?Value ?Units (Range) ? LV ESV SP 4CH (MOD) 21 ? ml ? LV ESV SP 2CH (MOD) 15 ? ml ? LV EDV BP ? 64 ? ml ? LV ESV BP ? 18 ? ml ? LV EDV BP index ? 35.42 ?ml/m2 ? LV ESV BP index ? 9.96 ? ml/m2 ? BP EF (MOD) ? 71.88 ?% ? LV mass (2D) ?193.99 ? g ? LV mass (2D) index ??107.37 ? g/m2 ? Diastolic/Systolic Function ?Value ?Units (Range) ? MV E-wave Vmax ?1.91 ? m/sec ? MV deceleration [id number] ?msec ? MV A-wave Vmax ?1.38 ? m/sec ? MV E:A ratio ?1.38 ? ratio ? Aortic Valve ?Value ?Units (Range) ? AV Vmax ? 3.11 ? m/sec ? AV VTI ?65.1 ? cm ? AV peak gradient ?39 ? mmHg ? AV mean gradient ?18 ? mmHg ? LVOT diameter ? 1.8 ?cm ? LVOT Vmax ? 0.8 ?m/sec ? LVOT VTI ?20.8 ? cm ? LVOT peak gradient ??2 ?mmHg ? LVOT mean gradient ??2 ?mmHg ? DOI (VTI) ? 0.32 ? ratio ? DOI (Vmax) ?0.26 ? ratio ? SV LVOT ? 52.9 ? ml ? CORINE (continuity Vmax0.65 ? cm2 ? CORINE (continuity Vmax0.36 ? cm2/m2 ? CORINE (continuity VTI)0.81 ? cm ? CORINE (continuity VTI)0.45 ? cm2/m2 ? Mitral Valve ?Value ?Units (Range) ? MV Vmax ? 2.07 ? m/sec ? MV VTI ?53.4 ? cm ? MV peak gradient ?17.14 ?mmHg ? MV mean gradient ?7 ?mmHg ? MVA (continuity VTI)0.99 ? cm2 ? Tricuspid Valve ?Value ?Units (Range) ? TR Vmax ? 2.95 ? m/sec ? TR peak gradient ?34.81 ?mmHg ? RAP ? 8 ?mmHg ? RVSP ?43 ? mmHg ? Wall Motion: Segment Name ?Rest ? Base-Anteroseptal ?? Normal ? Base-Anterior ? Normal ? Base-Anterolateral ??Normal ? Base-Posterolateral Normal ? Base-Inferior ? Normal ? Base-Inferoseptal ?? Normal ? Mid-Anteroseptal ?Normal ? Mid-Anterior ?Normal ? Mid-Anterolateral ?? Normal ? Mid-Posterolateral ??Normal ? Mid-Inferior ?Normal ? Mid-Inferoseptal ?Normal ? Madison-Septal ? Normal ? Madison-Anterior ? Normal ? Madison-Lateral ?Normal ? Madison-Inferior ? Normal ? [place]-Tip ?Normal ? This report has been electronically signed by: Alvin Ramos MD ? 06/25/2020 11:16:39 Images reviewed and interpretation verified [facility] Cardiac Ultrasound Laboratory Procedure Note Alvin Ramos MD - 06/25/2020 Procedure: Transthoracic Echocardiogram Patient: WILLIAM Francis DOB(Age): 1940(79y) Med Rec#: [id number] Sex: F [place] Loc: [facility] [place] Ht / Wt: 158(cm)/79(kg) Pt. Loc: Adult Floor BSA: 1.81 Study Date: 06/25/2020 Pt. Type: Inpatient Tape: Referring: ESAU VALENTIN J Reading: Alvin Ramos ([id number]) [employer]: Alvin Herrera [facility] Diagnosis: *Nonrheumatic aortic (valve) stenosis (I35.0) *Limited study to assess ventricular function and AoV. BP: 147/54 SUMMARY: 1. Limited for LV function and aortic [...] in the 60s. 6. No pericardial effusion. Findings : Study Quality: Adequate Left Ventricle: The left ventricular chamber size is normal. Basal septal hypertrophy is observed. There is no evidence of LVOT obstruction. There is normal global left ventricular systolic function. The quantitative left ventricular ejection fraction by biplane Olivera's method is 72%. There are no left ventricular segmental wall motion abnormalities. Right Ventricle: The right ventricle is normal in size. Right ventricular global systolic function is normal. The estimated pulmonary artery systolic pressure is 43 mmHg. The estimated right atrial pressure is 8 mmHg. Aortic Valve: The aortic valve is tricuspid. Severe aortic leaflet calcification is visualized. Systolic excursion of the aortic valve cusps is reduced. There is aortic annular calcification. The peak instantaneous trans-valvular gradient across the aortic valve is 39 mmHg.Obtained from the apical position with the imaging CW probe. The mean trans-valvular gradient across the aortic valve is 18 mmHg.DOI 0.26 The calculated aortic valve area is 0.65 cm2. There is severe aortic valve stenosis. There is a trace of aortic regurgitation present. Mitral Valve: Moderate mitral leaflet calcification is visualized. The papillary muscle heads appear calcified. The mitral valve chordae appear calcified. There is anterior and posterior mitral annular calcification. The mean gradient across the mitral valve is 7 mmHg. There is moderate mitral stenosis present. There is mild (1+/4+) mitral regurgitation present. Tricuspid Valve: The tricuspid valve appears normal in structure and function. There is mild to moderate (1-2+/4+) tricuspid regurgitation present. Pericardium: The pericardium appears normal and there is no evidence of a pericardial effusion. Aorta: The aortic root is normal in size. The ascending aorta is normal in size. Venous: The inferior vena cava appears normal in size. There is less than 50% respiratory change in the inferior vena cava dimension consistent with elevated right atrial pressure. Chambers 2D Value Units (Range) IVSd (2D) 1.77 cm LVPWd (2D) 0.85 cm IVS:LVPW ratio (2D) 2.09 ratio RWT (2D) 0.64 ratio RWT PW (2D) 0.42 ratio LVIDd (2D) 4.08 cm LVIDs (2D) 3.19 cm LVIDd (2D) index 2.26 cm/m2 LVIDs (2D) index 1.77 cm/m2 LV FS (2D) 21.81 % EF Teichholz (2D) 44.59 % Ao root diameter (2D2.8 cm (2.1 - 3.6) Ascending Ao 3.3 cm (2 - 3.5) Volumes/Mass Value Units (Range) LV ESV SP 4CH (MOD) 21 ml LV ESV SP 2CH (MOD) 15 ml LV EDV BP 64 ml LV ESV BP 18 ml LV EDV BP index 35.42 ml/m2 LV ESV BP index 9.96 ml/m2 BP EF (MOD) 71.88 % LV mass (2D) 193.99 g LV mass (2D) index 107.37 g/m2 Diastolic/Systolic Function Value Units (Range) MV E-wave Vmax 1.91 m/sec MV deceleration [id number] msec MV A-wave Vmax 1.38 m/sec MV E:A ratio 1.38 ratio Aortic Valve Value Units (Range) AV Vmax 3.11 m/sec AV VTI 65.1 cm AV peak gradient 39 mmHg AV mean gradient 18 mmHg LVOT diameter 1.8 cm LVOT Vmax 0.8 m/sec LVOT VTI 20.8 cm LVOT peak gradient 2 mmHg LVOT mean gradient 2 mmHg DOI (VTI) 0.32 ratio DOI (Vmax) 0.26 ratio SV LVOT 52.9 ml CORINE (continuity Vmax0.65 cm2 CORINE (continuity Vmax0.36 cm2/m2 CORINE (continuity VTI)0.81 cm CORINE (continuity VTI)0.45 cm2/m2 Mitral Valve Value Units (Range) MV Vmax 2.07 m/sec MV VTI 53.4 cm MV peak gradient 17.14 mmHg MV mean gradient 7 mmHg MVA (continuity VTI)0.99 cm2 Tricuspid Valve Value Units (Range) TR Vmax 2.95 m/sec TR peak gradient 34.81 mmHg RAP 8 mmHg RVSP 43 mmHg Wall Motion: Segment Name Rest Base-Anteroseptal Normal Base-Anterior Normal Base-Anterolateral Normal Base-Posterolateral Normal Base-Inferior Normal Base-Inferoseptal Normal Mid-Anteroseptal Normal Mid-Anterior Normal Mid-Anterolateral Normal Mid-Posterolateral Normal Mid-Inferior Normal Mid-Inferoseptal Normal Madison-Septal Normal Madison-Anterior Normal Madison-Lateral Normal Madison-Inferior Normal Madison-Tip Normal This report has been electronically signed by: Alvin Ramos MD 06/25/2020 11:16:39 Images reviewed and interpretation verified [facility] Cardiac Ultrasound Laboratory Benoit Schumacher MD ECHO ORDERABLES * POCT Glucose (06/25/2020 7:39 AM EDT) POC Glucose 141 65 - 199 mg/dL [facility] Comment: Supplemental ranges: <140 mg/dL before meals <180 mg/dL all other times of the day Blood specimen (specimen) 06/25/2020 7:39 AM EDT 06/25/2020 7:39 AM EDT Maria L Chawla MD POINT OF CAR E TEST ORDERABLES [facility] [place] [address] * EKG 12 Lead (06/25/2020 7:16 AM EDT) Ventricular rate 59 BPM MUSE SYSTEM Atrial Rate 59 BPM MUSE SYSTEM P-R Interval 138 ms MUSE SYSTEM QRS Duration 126 ms MUSE SYSTEM Q-T Interval 482 ms MUSE SYSTEM QTC Calculated (Bezet) 477 ms MUSE SYSTEM Calculated P [place] 16 degrees MUSE SYSTEM Calculated R [place] 64 degrees MUSE SYSTEM Calculated T [place] -34 degrees MUSE SYSTEM INTERPRETATION Sinus bradycardia Right bundle branch block T wave abnormality, consider inferior ischemia Abnormal ECG When compared with ECG of 24-JUN-2020 14:28, Right bundle branch block has replaced Non-specific intra-ventricular conduction block I personally reviewed the tracing and edited the fellows interpretation Confirmed by fellow Alvin Otoole ([id number]) on 06/25/2020 1:49:17 PM Confirmed by MD Castillo Michael ([id number]) on 06/25/2020 5:18:05 PM MUSE SYSTEM 06/25/2020 7:16 AM EDT 06/25/2020 5:18 PM EDT Benoit Schumacher MD ECG ORDERABLES MUSE SYSTEM * Differential, Automated (06/25/2020 5:13 AM EDT) Neutrophils % 57.5 % [facility] Neutr Abs (ANC) 3.28 1.70 - 6.10 x10(3)/[facility]AT[facility] Lymphocytes % 25.4 % [facility] Lymphocytes Abs 1.4 0.9 - 3.2 x10(3)/[facility] LABORATORY Monocytes % 10.0 % [facility] Monocyte Abs 0.6 0.3 - 0.9 x10(3)/[facility] LABORATORY Eosinophils % 5.6 % [facility] Eosinophils Abs 0.3 0.0 - 0.4 x10(3)/[facility] LABORATORY Basophils % 1.1 % [facility] Basophils Abs 0.1 0.0 - 0.1 x10(3)/[facility] LABORATORY Immature Gran % 0.40 % [facility] Comment: Immature granulocytes(IG's)percentage and absolute count will include metamyelocytes, myelocytes, and promyelocytes. Blood smears from CBCs yielding IG's will be scanned manually for concordance. If this scan disagrees with the automated IG or if promyelocytes are noted, a manual differential will be performed. Nanci Gran Abs 0.02 0.00 - 0.04 x10(3)/[facility] LAB[facility]ATORY Blood specimen (specimen) 06/25/2020 5:13 AM EDT 06/25/2020 5:32 AM EDT Narrative Resulting Agency Comment Spec In Lab Candice ARMADNO HEMATOLOGY ORDERABL ES [facility] [place] [address] * (ABNORMAL) Hemogram (06/25/2020 5:13 AM EDT) WBC 5.7 4.0 - 9.5 x10(3)/[facility] LAB[facility]ORY RBC 3.18(L) 4.00 - 5.21 x10(6)/[facility] Hemoglobin 7.8(L) 11.7 - 15.5 gm/dL [facility] Hematocrit 27.1(L) 35.7 - 45.8 % [facility] MCV 85.2 82.6 - 94.4 fL [facility] MCH 24.5(L) 27.1 - 32.0 pg [facility] MCHC 28.8(L) 31.7 - 35.0 gm/dL [facility] [place] Platelets 240 145 - 357 x10(3)/[facility] RDWSD 43.9 37.0 - 46.0 fL [facility] RDWCV 14.1 11.5 - 14.1 % [facility] MPV 9.9 7.6 - 12.9 fL [facility] nRBC % Auto 0.0 % [facility] nRBC Abs Auto 0.000 0.000 - 0.000 x10(3)/mcL [facility] Blood specimen (specimen) 06/25/2020 5:13 AM EDT 06/25/2020 5:32 AM EDT Narrative Resulting Agency Comment Spec In Lab Candice ARMANDO HEMATOLOGY ORDERABL ES [facility] [place] [address] * (ABNORMAL) CMP w/fasting Glucose (06/25/2020 5:13 AM EDT) Glucose Fasting 150(H) 65 - 99 mg/dL [facility] Comment: ?Fasting* Glucose Interpretive Criteria [...] of Diabetes Mellitus, Position Statement from the [place] [employer]. ??Diabetes Care, Volume 33, Supplement 1, Aug 2009 BUN 10 8 - 18 mg/dL [facility] Creatinine 0.73 0.70 - 1.20 mg/dL [facility] Sodium 139 135 - 145 mmol/L [facility] Potassium 3.6 3.5 - 5.0 mmol/L [facility] Comment: Please note: ??Patients with WBC >100,000 may have falsely elevated Potassium levels. ??For accurate Potassium quantification in these patients send serum separator tube (gold top) for subsequent determinations. ??Contact the Clinical Chemistry Laboratory if there are any questions. Chloride 108(H) 98 - 107 mmol/L [facility] CO2 23 22 - 31 mmol/L [facility] Anion Gap 8 5 - 15 mmol/L [facility] Calcium 8.4(L) 8.5 - 10.5 mg/dL [facility] Total Protein 5.7(L) 6.1 - 8.0 gm/dL [facility] Albumin 3.4 3.2 - 5.2 gm/dL [facility] AST 15 0 - 30 unit/L [facility] ALT 12 0 - 30 unit/L [facility] Alk Phos 86 35 - 105 unit/L [facility] Total Bilirubin 0.9 0.2 - 1.3 mg/dL [facility] Estimated GFR 78 >=60 mL/min/1. 73 m?? [facility] Comment: The eGFR was calculated using the CKD-EPI equation. As with all creatinine based estimates of kidney function, eGFR values calculated with the CKD-EPI equation are not accurate in patients with acute kidney failure, extremes of body mass or the acutely ill. [email or web address] eGFR 91 >=60 mL/min/1. 73 m?? [facility] Comment: The eGFR was calculated using the CKD-EPI equation. As with all creatinine based estimates of kidney function, eGFR values calculated with the CKD-EPI equation are not accurate in patients with acute kidney failure, extremes of body mass or the acutely ill. [email or web address] Blood specimen (specimen) 06/25/2020 5:13 AM EDT 06/25/2020 5:32 AM EDT Narrative Resulting Agency Comment Spec In Lab Benoit Schumacher MD CHEMISTRY ORDER JAMIE [facility] [place] [address] * Magnesium (06/25/2020 5:13 AM EDT) Magnesium 0.70 0.69 - 1.07 mmol/L [facility] Blood specimen (specimen) 06/25/2020 5:13 AM EDT 06/25/2020 5:32 AM EDT Narrative Resulting Agency Comment Spec In Lab Benoit Schumacher MD CHEMISTRY ORDER JAMIE [facility] [place] [address] * POCT Glucose (06/24/2020 9:03 PM EDT) Pathologist [facility] POC Glucose 197 65 - 199 mg/dL [facility] Comment: Supplemental ranges: <140 mg/dL before meals <180 mg/dL all other times of the day Blood specimen (specimen) 06/24/2020 9:03 PM EDT 06/24/2020 9:03 PM EDT Benoit Schumacher MD POINT OF CARE T EST ORDERABLES Performing Organization Address [facility] Co de Phone Number [facility] [place] [address] * POCT Glucose (06/24/2020 3:59 PM EDT) POC Glucose 95 65 - 199 mg/dL [facility] Comment: Supplemental ranges: <140 mg/dL before meals <180 mg/dL all other times of the day Blood specimen (specimen) 06/24/2020 3:59 PM EDT 06/24/2020 3:59 PM EDT Esau Valentin MD POINT OF CARE MISTY T ORDERABLES Performing Organization Address City/[facility]/ZIP Co de Phone Number [facility] [place] [address] * EKG 12 Lead (06/24/2020 2:28 PM EDT) Ventricular rate 78 BPM MUSE SYSTEM Atrial Rate 78 BPM MUSE SYSTEM P-R Interval 202 ms MUSE SYSTEM QRS Duration 134 ms MUSE SYSTEM Q-T Interval 470 ms MUSE SYSTEM QTC Calculated (Bezet) 535 ms MUSE SYSTEM Calculated P Torrance 52 degrees MUSE SYSTEM Calculated R Torrance 99 degrees MUSE SYSTEM Calculated T Torrance -60 degrees MUSE SYSTEM INTERPRETATION Normal sinus rhythm Rightward axis Non-specific intra-ventricula r conduction block T wave abnormality, consider anterolateral ischemia Abnormal ECG When compared with ECG of 24-JUN-2020 09:15, Non-specific intra-ventricula r conduction block has replaced Right bundle branch block Confirmed by MD HUI, SABI ([id number]) on 06/24/2020 8:55:02 PM MUSE SYSTEM 06/24/2020 2:28 PM EDT 06/24/2020 8:55 PM EDT Esau Valentin MD ECG ORDERABLES MUSE SYSTEM * CARDIAC CATHETERIZATION (06/24/2020 2:13 PM EDT) Anatomical Region Laterality Modality Other Narrative 06/24/2020 2:49 PM EDT ?[facility] ? Cardiac Catheterization/Intervention Report ? Patient Name: WILLIAM, SHANNAN A. ? Procedure Date: 06/24/2020 ? A #: [id number] ? Primary Physician: Barbie, Esau J ? Case #: [id number] ? File Name: [id number] ? Catheterization Order Number: [id number] ? [facility] ? Final Report [place], [place] ? Patient Name: ? SHANNAN A. WILLIAM ? ID#: ?[id number] ? : ?1940 ? Procedure Date: ? June 24, 2020 ? Case #: ? [id number] ? Room: ? 6 ? Case Physician: ? Esau Valentin M.D. ?Start: ?12:10 ? Admission: ??06/24/2020 ? Referring Physician: ??Reshma Baig M.D. ? 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 History ?SHANNAN THOMAS is a 79 year old woman. She has hypertension. The [...] a history of ?CHF. The CHF is NYHA Functional Class III, is newly diagnosed and is ?classified as Diastolic. The patient also has a history of atrial ?fibrillation/atrial flutter. Prior to the initiation of this procedure, ?the patient was designated as ASA Class IV. The [facility] clinical frailty ?scale is 5: Mildly Frail. ? Diagnostic Tests: ?Prior Coronary Angiography: ? LV ejection fraction within 6 months is 59%. ?Electrocardiography: ? EKG was assessed by ECG. EKG was Abnormal. EKG showed other ? abnormality. ?Medications Prior to Procedure: ? Antiarrhythmic Agent Other, Aspirin, Angiotensin II Receptor ? Shari, Beta Shari and Statin. ? Indications for Diagnostic Cath: ?The priority of the diagnostic procedure was Elective. Chest pain symptom ?assessment was: Asymptomatic. One of the indications for cath is valvular ?heart disease. The patient has Severe aortic stenosis. ? Technique: ?A 12Fr sheath was inserted in the right femoral artery utilizing the ?Seldinger technique. A 5 SLFr sheath was inserted in the right radial ?artery utilizing the Seldinger technique. A 5Fr sheath was inserted in ?the left femoral vein utilizing the Seldinger technique. Left ventricular ?pressure was performed with a 6Fr ANGLED PIGTAIL catheter. A 5Fr Pacel ?Flow Directed Pacing Cat lead was placed for a temporary pacing lead. ?11,000 units of heparin were administered. A total of 50cc of Omnipaque ?were opened, 1cc of Omnipaque were administered and 49cc of Omnipaque ?were wasted. Radiation: Fluoro time was 9.4 minutes, dose area product ?was 20,100 mGYcm2 and air kerma was 119 mGY. See the case log for ?additional details. ?The patient received the following medications prior to and during the ?procedure: ? Unfractionated Heparin and Clopidogrel. ? Hemodynamics: ?Left Heart Pressures ? Resting: ? Syst Diast ? EDP ?a ?v ? m ?Ao 123 ?? 45 ?74 ?LV 141 ? 12 ?Comments: ??Rt Radial Art Pressure: 117/40 (66). ? Stenotic Valve Data: ?Aortic Valve ?Peak Gradient - 28 ?Mean Gradient - 54 ? Hemodynamics After Valvuloplasty: ?Left Heart Pressures ? Post Intervention: ? Syst Diast ? EDP ?a ?v ? m ?Ao 163 ?? 55 ?96 ?LV 179 ? 17 ?Comments: ??After first balloon: ??P-P 19 ? Mean Gradient: 44.4. ? Stenotic Valve Data After Valvuloplasty: ?Aortic Valve ?Peak Gradient - 19 ?Mean Gradient - 20 ? Vascular Access: ?Vascular Access Management: ? Manual Compression of the left femoral vein access site was ? performed. ? Mechanical Compression of the right radial artery access site was ? performed. ? A 6 Fr Perclose was deployed at the right femoral artery access ? site. This device was successful. Manual Compression of the right ? femoral artery access site was performed. ? Conclusions: ?* Severe aortic stenosis ?* Valvuloplasty was performed ?* Successful balloon aortic valvuloplasty. ? Complications/Events: ?The patient had no complications during these procedures. ? Comments: ?Valvuloplasty Balloon: 18mmx4.5cm True Dilitation Balloon, Lot#[id number]. ?2nd Balloon 20mmx4.5cm True Dilitation Balloon ?Lot#[id number]. ?Ultrasound and fluoroscopy used to select vascular access location. See ?description of arteries under access site management. Visualization of ?front wall puncture and confirmation of wire entry above femoral ?bifurcation and below inferior epigastric. ?Percutaneous access with Preclose technique: one Perclose placed, ?followed by heparin bolus (weight based, 80-100 units/kg to maintain ACT ?greater than 250 seconds) followed by the THV e-sheath (the sheath is 14 ?Fr for 23/26 mm valves, and 16 Fr for 29 mm valve) over a Alina wire. ?RRA 5 Fr. Sheath. ?Left FV ??5 Fr. Sheath, through which a 5 Fr balloon-tipped pacemaker was ?placed to RV apex under fluoroscopy; pacing thresholds confirmed, pacer ?secured. Pacer set to back up 40 bpm, burst pacing at 180 bpm, 10 mA. ?The aortic valve was crossed with a 6 Fr AL1 catheter and straight wire; ?this was then exchanged for a 0.035 Amplatz extra stiff guidewire with LV ?curve placed retrograde across the aortic valve. Balloon aortic ?valvuloplasty was performed during rapid ventricular pacing with an 18, ?and then 20 mm x 4 cm Noe valvuloplasty balloon. Between inflations, ?TTE performed showing stable trace to mild AR, no pericardial effusion, ?and invasive gradients showing drop from 54 mmHg to 44 mmHg to 20 mmHg. ?The delivery sheath was withdrawn over a wire and Perclose was performed ?successfully. Manual pressure was used for the venous site. Excellent ?hemostasis. Sterile dressings were applied and the patient was then ?transferred to the CRU in stable condition for recovery. ?Successful balloon aortic valvuloplasty. ?The attending physician was present for the entire procedure. ?Dr. Esau Valentin M.D. was present during the moderate sedation ?intraservice time as documented by the sedation nurse. ??Case time = 01:45. ?Dr. Esau Valentin M.D. performed the valvuloplasty-aortic, left ?heart catheterization, vascular ultrasound, temporary pacemaker in research laboratory specialist ?and transthoracic echo . ? Esau Valentin, ? M.D. ? Electronically Signed by: Esau Valentin M.D. ? Report Finalized: 06/24/2020 ??14:42 ? Procedure Note Esau Valentin, MD - 06/24/2020 [facility] Cardiac Catheterization/Intervention Report Patient Name: SHANNAN THOMAS Procedure Date: 06/24/2020 A #: [id number] Primary Physician: Esau Valentin Case #: [id number] File Name: [id number] Catheterization Order Number: [id number] [facility] FinalReport [place], [place] Patient Name: SHANNAN THOMAS ID#:[id number] :1940 Procedure Date: June 24, 2020 Case #: [id number] Room: 6 Case Physician: Esau Valentin M.D. Start: 12:10 Admission:06/24/2020 Referring Physician: Reshma Baig M.D. 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 She has hypertension. The patient's smoking status is Never. She has [...] has a historyof CHF. The CHF is NYHA Functional Class III, is newly diagnosed and is classified as Diastolic. The patient also has a history of atrial fibrillation/atrial flutter. Prior to the initiation of thisprocedure, the patient was designated as ASA Class IV. The [facility] clinicalfrailty scale is 5: Mildly Frail. Diagnostic Tests: Prior Coronary Angiography: LV ejection fraction within 6 months is 59%. Electrocardiography: EKG was assessed by ECG. EKG was Abnormal. EKG showed other abnormality. Medications Prior to Procedure: Antiarrhythmic Agent Other, Aspirin, Angiotensin II Receptor Shari, Beta Shari and Statin. Indications for Diagnostic Cath: The priority of the diagnostic procedure was Elective. Chest painsymptom assessment was: Asymptomatic. One of the indications for cath isvalvular heart disease. The patient has Severe aortic stenosis. Technique: A 12Fr sheath was inserted in the right femoral artery utilizing the Seldinger technique. A 5 SLFr sheath was inserted in the rightradial artery utilizing the Seldinger technique. A 5Fr sheath was insertedin the left femoral vein utilizing the Seldinger technique. Leftventricular pressure was performed with a 6Fr ANGLED PIGTAIL catheter. A 5FrPacel Flow Directed Pacing Cat lead was placed for a temporary pacinglead. 11,000 units of heparin were administered. A total of 50cc ofOmnipaque were opened, 1cc of Omnipaque were administered and 49cc ofOmnipaque were wasted. Radiation: Fluoro time was 9.4 minutes, dose areaproduct was 20,100 mGYcm2 and air kerma was 119 mGY. See the case log for additional details. The patient received the following medications prior to and duringthe procedure: Unfractionated Heparin and Clopidogrel. Hemodynamics: Left Heart Pressures Resting: Syst Diast EDP a v m Ao 123 45 74 LV 141 12 Comments: Rt Radial Art Pressure: 117/40 (66). Stenotic Valve Data: Aortic Valve Peak Gradient - 28 Mean Gradient - 54 Hemodynamics After Valvuloplasty: Left Heart Pressures Post Intervention: Syst Diast EDP a v m Ao 163 55 96 LV 179 17 Comments: After first balloon: P-P 19 Mean Gradient: 44.4. Stenotic Valve Data After Valvuloplasty: Aortic Valve Peak Gradient - 19 Mean Gradient - 20 Vascular Access: Vascular Access Management: Manual Compression of the left femoral vein access site was performed. Mechanical Compression of the right radial artery access sitewas performed. A 6 Fr Perclose was deployed at the right femoral artery access site. This device was successful. Manual Compression of theright femoral artery access site was performed. Conclusions: * Severe aortic stenosis * Valvuloplasty was performed * Successful balloon aortic valvuloplasty. Complications/Events: The patient had no complications during these procedures. Comments: Valvuloplasty Balloon: 18mmx4.5cm True Dilitation Balloon,Lot#[id number]. 2nd Balloon 20mmx4.5cm True Dilitation Balloon Lot#[id number]. Ultrasound and fluoroscopy used to select vascular access location.See description of arteries under access site management. Visualizationof front wall puncture and confirmation of wire entry above femoral bifurcation and below inferior epigastric. Percutaneous access with Preclose technique: one Perclose placed, followed by heparin bolus (weight based, 80-100 units/kg to maintainACT greater than 250 seconds) followed by the THV e-sheath (the sheathis 14 Fr for 23/26 mm valves, and 16 Fr for 29 mm valve) over a Meierwire. RRA 5 Fr. Sheath. Left FV 5 Fr. Sheath, through which a 5 Fr balloon-tipped pacemakerwas placed to RV apex under fluoroscopy; pacing thresholds confirmed,pacer secured. Pacer set to back up 40 bpm, burst pacing at 180 bpm, 10mA. The aortic valve was crossed with a 6 Fr AL1 catheter and straightwire; this was then exchanged for a 0.035 Amplatz extra stiff guidewirewith LV curve placed retrograde across the aortic valve. Balloon aortic valvuloplasty was performed during rapid ventricular pacing with an18, and then 20 mm x 4 cm Noe valvuloplasty balloon. Betweeninflations, TTE performed showing stable trace to mild AR, no pericardialeffusion, and invasive gradients showing drop from 54 mmHg to 44 mmHg to 20mmHg. The delivery sheath was withdrawn over a wire and Perclose wasperformed successfully. Manual pressure was used for the venous site.Excellent hemostasis. Sterile dressings were applied and the patient was then transferred to the CRU in stable condition for recovery. Successful balloon aortic valvuloplasty. The attending physician was present for the entire procedure. Dr. Esau Valentin M.D. was present during the moderate sedation intraservice time as documented by the sedation nurse. Case time =01:45. Dr. Esau Valentin M.D. performed the valvuloplasty-aortic, left heart catheterization, vascular ultrasound, temporary pacemaker incath lab and transthoracic echo . Esau Mcgarry M.D. Electronically Signed by: Esau Valentin M.D. Report Finalized: 06/24/2020 14:42 Esau Valentin MD CARDIAC CATH JESSICA BLOCK * POCT Glucose (06/24/2020 12:53 PM EDT) POC Glucose 105 65 - 199 mg/dL [facility] Comment: Supplemental ranges: <140 mg/dL before meals <180 mg/dL all other times of the day Blood specimen (specimen) 06/24/2020 12:53 PM EDT 06/24/2020 12:53 PM EDT Esau Valentin MD POINT OF CARE MISTY T ORDERABLES Performing Organization Address [facility] Co de Phone Number [facility] [place] [address] * POCT Glucose (06/24/2020 9:18 AM EDT) Pathologist [facility] POC Glucose 122 65 - 199 mg/dL [facility] Comment: Supplemental ranges: <140 mg/dL before meals <180 mg/dL all other times of the day Blood specimen (specimen) 06/24/2020 9:18 AM EDT 06/24/2020 9:18 AM EDT Esau Valentin MD POINT OF CARE MISTY T ORDERABLES Performing Organization Address City/[facility]/ZIP Co de Phone Number [facility] [place] [address] * EKG 12 Lead (06/24/2020 9:15 AM EDT) Ventricular rate 64 BPM MUSE SYSTEM Atrial Rate 64 BPM MUSE SYSTEM P-R Interval 126 ms MUSE SYSTEM QRS Duration 126 ms MUSE SYSTEM Q-T Interval 472 ms MUSE SYSTEM QTC Calculated (Bezet) 486 ms MUSE SYSTEM Calculated P Torrance 6 degrees MUSE SYSTEM Calculated R Torrance 17 degrees MUSE SYSTEM Calculated T Torrance -20 degrees MUSE SYSTEM INTERPRETATION Normal sinus rhythm Right bundle branch block Abnormal ECG When compared with ECG of 30-APR-2020 08:01, No significant change was found Confirmed by MD AMES SALVATORE ([id number]) on 06/24/2020 12:24:07 PM MUSE SYSTEM 06/24/2020 9:15 AM EDT 06/24/2020 12:24 PM EDT Esau Valentin MD ECG ORDERABLES Performing Organization Address [facility] Phone Number MUSE SYSTEM * Differential, Automated (06/24/2020 8:40 AM EDT) Neutrophils % 56.2 % [facility] Neutr Abs (ANC) 3.72 1.70 - 6.10 x10(3)/[facility] LABORATORY Lymphocytes % 28.4 % [facility] Lymphocytes Abs 1.9 0.9 - 3.2 x10(3)/[facility] LABORATORY Monocytes % 10.1 % [facility] Monocyte Abs 0.7 0.3 - 0.9 x10(3)/[facility] LABORATORY Eosinophils % 3.9 % [facility] Eosinophils Abs 0.3 0.0 - 0.4 x10(3)/[facility] LABORATORY Basophils % 1.1 % [facility] Basophils Abs 0.1 0.0 - 0.1 x10(3)/[facility] LABORATORY Immature Gran % 0.30 % [facility] Comment: Immature granulocytes(IG's)percentage and absolute count will include metamyelocytes, myelocytes, and promyelocytes. Blood smears from CBCs yielding IG's will be scanned manually for concordance. If this scan disagrees with the automated IG or if promyelocytes are noted, a manual differential will be performed. Nanci Gran Abs 0.02 0.00 - 0.04 x10(3)/[facility] LABORATORY Blood specimen (specimen) 06/24/2020 8:40 AM EDT 06/24/2020 8:47 AM EDT Narrative Resulting Agency Comment Spec In Lab Esau Valentin MD HEMATOLOGY ORDERA BLES [facility] [place] [place] [address] * (ABNORMAL) Hemogram (06/24/2020 8:40 AM EDT) [facility] WBC 6.6 4.0 - 9.5 x10(3)/[facility]ORY RBC 3.46(L) 4.00 - 5.21 x10(6)/[facility] Hemoglobin 8.7(L) 11.7 - 15.5 gm/dL [facility] Hematocrit 29.0(L) 35.7 - 45.8 % [facility] MCV 83.8 82.6 - 94.4 [facility] LABORATORY MCH 25.1(L) 27.1 - 32.0 pg [facility] MCHC 30.0(L) 31.7 - 35.0 gm/dL [facility] Platelets 257 145 - 357 x10(3)/[facility] LABORATORY RDWSD 42.8 37.0 - 46.0 [facility] LABORATORY RDWCV 14.0 11.5 - 14.1 % [facility] MPV 10.2 7.6 - 12.9 [facility] LABORATORY nRBC % Auto 0.0 % [facility] nRBC Abs Auto 0.000 0.000 - 0.000 x10(3)/[facility]ATORY Blood specimen (specimen) 06/24/2020 8:40 AM EDT 06/24/2020 8:47 AM EDT Narrative Resulting Agency Comment Spec In Lab Esau Valentin MD HEMATOLOGY ORDERA BLES [facility] [place] [address] * Basic Metabolic Panel (non-fasting) (06/24/2020 8:40 AM EDT) Pathologist [facility] Glucose Lvl 128 65 - 199 mg/dL [facility] Comment:Diabetes: >=200 mg/d L plus symptoms BUN 10 8 - 18 mg/dL [facility] Creatinine 0.83 0.70 - 1.20 mg/dL [facility] Sodium 137 135 - 145 mmol/L [facility] Potassium 3.6 3.5 - 5.0 mmol/L [facility] Comment: Please note: ??Patients with WBC >100,000 may have falsely elevated Potassium levels. ??For accurate Potassium quantification in these patients send serum separator tube (gold top) for subsequent determinations. ??Contact the Clinical Chemistry Laboratory if there are any questions. Chloride 102 98 - 107 mmol/L [facility] CO2 24 22 - 31 mmol/L [facility] Anion Gap 11 5 - 15 mmol/L [facility] Calcium 8.9 8.5 - 10.5 mg/dL [facility] Estimated GFR 67 >=60 mL/min/1. 73 m?? [facility] Comment: The eGFR was calculated using the CKD-EPI equation. As with all creatinine based estimates of kidney function, eGFR values calculated with the CKD-EPI equation are not accurate in patients with acute kidney failure, extremes of body mass or the acutely ill. [email or web address] eGFR 78 >=60 mL/min/1. 73 m?? [facility] Comment: The eGFR was calculated using the CKD-EPI equation. As with all creatinine based estimates of kidney function, eGFR values calculated with the CKD-EPI equation are not accurate in patients with acute kidney failure, extremes of body mass or the acutely ill. [email or web address] Blood specimen (specimen) 06/24/2020 8:40 AM EDT 06/24/2020 8:47 AM EDT Narrative Resulting Agency Comment Spec In Lab Esau Valentin MD CHEMISTRY ORDERAB LES [facility] [place] [phone] documented in this encounter Visit Diagnoses Diagnosis Aortic valve stenosis- Primary Aortic valve disorders Aortic valve stenosis, etiology of cardiac valve disease unspecified Paroxysmal atrial fibrillation Atrial fibrillation Severe aortic stenosis Aortic valve disorders Aortic valve stenosis, etiology of cardiac valve disease unspecified documented in this encounter Admitting Diagnoses Diagnosis Severe aortic stenosis Aortic valve disorders documented in this encounter Administered Medications Inactive Administered Medications - up to 3 most recent administrations Medication Order MAR Action Action Date Dose Rate Site AMIOdarone (Cordarone; Pacerone) tablet 200 mg 200 mg, Oral, 2 TIMES DAILY, First dose on Noreen 06/24/20 at 2100, Until Discontinued, Routine Given 06/25/2020 8:22 AM EDT 200 mg Given 06/24/2020 9:00 PM EDT 200 mg aspirin EC tablet 81 mg 81 mg, Oral, DAILY, First dose on Sun06/25/20 at 0900, Until Discontinued, Recovery (Recovery-Hospital Unit), Routine Given 06/25/2020 8:21 AM EDT 8 1 mg clopidogreL (Plavix) tablet 300 mg 300 mg, Oral, ONCE, 1 dose, On Noreen 06/24/20 at 1530, Routine Given 06/24/2020 4:36 PM EDT 300 mg clopidogreL (Plavix) tablet 75 mg 75 mg, Oral, DAILY, First dose on Sun06/25/20 at 0900, Until Discontinued, Routine Given 06/25/2020 8:22 AM EDT 75 mg dextrose 10% infusion 250 mL, at 1,000 mL/hr, Intravenous, EVERY 30 MIN PRN, Starting on Noreen 06/24/20 at 1609, Until Sun06/25/20 at 1818, For BG 50-70 mg/dL: Oral treatment preferred:?? [...] insulin. glucagon (human recombinant) injection SolR 1 mg 1 mg, Intramuscular, EVERY 30 MIN PRN, Starting on Noreen 06/24/20 at 1609, Until Sun06/25/20 at 1818, Low blood sugar, For BG 50-70 mg/dL: [...] Buccal, EVERY 30 MIN PRN, Starting on Noreen 06/24/20 at 1609, Until Sun06/25/20 at 1818, Low blood sugar, For BG 50-70 mg/dL: [...] weight of tube = 37.5 grams., Routine insulin glargine VIAL injection 20 Units 20 Units, Subcutaneous, 2 TIMES DAILY, First dose on Noreen 06/24/20 at 2100, Until Discontinued, Routine Given 06/25/2020 8:21 AM EDT 20 Units Given 06/24/2020 9:04 PM EDT 20 Units insulin lispro (HumaLOG) VIAL injection 0-8 Units 0-8 Units, Subcutaneous, 3 TIMES DAILY WITH MEALS, First dose on Noreen 06/24/20 at 1700, Until Discontinued, MEAL ASSOCIATED Give 1 unit for every 10 grams carbohydrate. Hold if not eating or if BG less than 70., Routine Given 06/25/2020 12:22 PM EDT 4 Units Given 06/25/2020 8:21 AM EDT 4 Units insulin lispro (HumaLOG) VIAL injection 1-5 Units 1-5 Units, Subcutaneous, 3 TIMES DAILY BEFORE MEALS, First dose on Noreen 06/24/20 at 1700, Until Discontinued, CORRECTION BOLUS [1-4 Units] Sensitive Sliding Scale: Correction factor 40 (1 unit of insulin is expected to drop the glucose 40 mg/dL) BG 160 - 200 Give 1 unit BG 201 - 240 Give 2 units BG 241 - 280 Give 3 units BG greater than 280, give 4 units and recheck BG in 2 hours. - If recheck BG is LESS than 280, give no insulin and resume schedule - If recheck BG is GREATER than 280, give 4 units and repeat BG in 2 hours (no more than 3 times) & call for new insulin orders. DO NOT hold if NPO, unless specifically told to do so. Per Blood Glucose Monitoring Policy, re-check a BG of > 240 in 2 hours., Routine Given 06/25/2020 12:22 PM EDT 1 Units losartan (Cozaar) tablet 25 mg 25 mg, Oral, DAILY, First dose on Sun06/25/20 at 0900, Until Discontinued, Routine Given 06/25/2020 8:22 AM EDT 25 mg magnesium oxide (Mag-Ox) tablet 400 mg 400 mg, Oral, 2 TIMES DAILY, First dose on Sun06/25/20 at 1015, Until Discontinued, Routine Given 06/25/2020 9:42 AM EDT 400 mg magnesium sulfate 2 g in sterile water 50 mL 2 g, Intravenous, ONCE, 1 dose, On Sun06/25/20 at 0730, Administer over 120 Minutes New Bag 06/25/2020 8:22 AM EDT 2 g 25 mL/hr metoprolol tartrate (Lopressor) tablet 50 mg 50 mg, Oral, EVERY 6 HOURS SCHEDULED, First dose on Sun06/24/20 at 1800, Until Discontinued, Hold for SBP <90 or HR <50, Routine Given 06/25/2020 12:21 PM EDT 50 mg Given 06/25/2020 5:35 AM EDT 50 mg Given 06/25/2020 12:14 AM EDT 50 mg pantoprazole EC (Protonix) tablet 40 mg 40 mg, Oral, 2 TIMES DAILY, First dose on Sun06/24/20 at 2100, Until Discontinued, DO NOT CRUSH OR OPEN, Routine Given 06/25/2020 8:22 AM EDT 40 mg Given 06/24/2020 9:00 PM EDT 40 mg potassium chloride ER (K-Dur/Klor-Con) tablet 40 mEq 40 mEq, Oral, ONCE, 1 dose, On Sun06/25/20 at 0730, 20 mEq tablet may be dissolved in water for administration, Routine Given 06/25/2020 8:22 AM EDT 40 mEq rosuvastatin (Crestor) tablet 20 mg 20 mg, Oral, EVERY EVENING, First dose on Noreen 06/24/20 at 1700, Until Discontinued, Routine Given 06/24/2020 4:34 PM EDT 20 mg sodium chloride 0.9% infusion 200 mL/hr, Intravenous, CONTINUOUS, Starting on Noreen 06/24/20 at 0930, Until Noreen 06/24/20 at 1420, Cath (Day of Procedure) New Bag 06/24/2020 9:28 AM EDT 200 mL/hr 200 mL/hr documented in this encounter Active and Recently Administered Medications Times are shown in EDT. Scheduled Medication Order 06/23/2020 06/24/2020 06/25/2020 AMIOdarone (Cordarone; Pacerone) tablet 200 mg 200 mg, Oral, 2 TIMES DAILY, First dose on Sun06/24/20 at 2100, Until Discontinued, Routine 2100 (Given - Provider: Sandy Wynne RN) 0822 (Given - Provider: Malika Champagne RN) aspirin EC tablet 81 mg 81 mg, Oral, DAILY, First dose on Sun06/25/20 at 0900, Until Discontinued, Recovery (Recovery-Hospital Unit), Routine 0821 (Given - Provid er: Malika Champagne RN) clopidogreL (Plavix) tablet 300 mg (COMPLETED) 300 mg, Oral, ONCE, 1 dose, On Sun06/24/20 at 1530, Routine 1636 (Given - Provider: Diana Angel RN) clopidogreL (Plavix) tablet 75 mg 75 mg, Oral, DAILY, First dose on Sun06/25/20 at 0900, Until Discontinued, Routine 0822 (Given - Provid er: Malika Champagne RN) insulin glargine VIAL injection 20 Units 20 Units, Subcutaneous, 2 TIMES DAILY, First dose on Sun06/24/20 at 2100, Until Discontinued, Routine 2104 (Given - Provider: Sandy Wynne RN) 0821 (Given - Provider: Malika Champagne RN) insulin lispro (HumaLOG) VIAL injection 0-8 Units 0-8 Units, Subcutaneous, 3 TIMES DAILY WITH MEALS, First dose on Sun06/24/20 at 1700, Until Discontinued, MEAL ASSOCIATED Give 1 unit for every 10 grams carbohydrate. Hold if not eating or if BG less than 70., Routine 1700 (Not Given - Provider: Diana Angel RN - Reason: See comment - Comment: not eating) 0821 (Given - Provider: Malika Champagne RN)1222 (Given - Provider: Malika Champagne RN) insulin lispro (HumaLOG) VIAL injection 1-5 Units(Linked Group 1) 1-5 Units, Subcutaneous, 3 TIMES DAILY BEFORE MEALS, First dose on Sun06/24/20 at 1700, Until Discontinued, CORRECTION BOLUS [1-4 Units] Sensitive Sliding Scale: Correction factor 40 (1 unit of insulin is expected to drop the glucose 40 mg/dL) BG 160 - 200 Give 1 unit BG 201 - 240 Give 2 units BG 241 - 280 Give 3 units BG greater than 280, give 4 units and recheck BG in 2 hours. - If recheck BG is LESS than 280, give no insulin and resume schedule - If recheck BG is GREATER than 280, give 4 units and repeat BG in 2 hours (no more than 3 times) & call for new insulin orders. DO NOT hold if NPO, unless specifically told to do so. Per Blood Glucose Monitoring Policy, re-check a BG of > 240 in 2 hours., Routine 1700 (Not Given - Provider: Diana Angel RN - Reason: Order parameters not met) 0730 (Not Given - Provider: Malika Champagne RN - Reason: Order parameters not met)1222 (Given - Provider: Malika Champagne RN) losartan (Cozaar) tablet 25 mg 25 mg, Oral, DAILY, First dose on Sun06/25/20 at 0900, Until Discontinued, Routine 0822 (Given - Provid er: Malika Champagne RN) magnesium oxide (Mag-Ox) tablet 400 mg 400 mg, Oral, 2 TIMES DAILY, First dose on Sun06/25/20 at 1015, Until Discontinued, Routine 0942 (Given - Provid er: Malika Champagne RN) magnesium sulfate 2 g in sterile water 50 mL (COMPLETED) 2 g, Intravenous, ONCE, 1 dose, On Sun06/25/20 at 0730, Administer over 120 Minutes 0822 (New Bag - Provider: Malika Champagne RN)0922 (Stopped - Provider: Malika Champagne RN - Comment: pt c/o burning in line) metoprolol tartrate (Lopressor) tablet 50 mg 50 mg, Oral, EVERY 6 HOURS SCHEDULED, First dose on Sun06/24/20 at 1800, Until Discontinued, Hold for SBP <90 or HR <50, Routine 1851 (Given - Provider: Diana Angel RN) 0014 (Given - Provider: Sandy Wynne, LYLA)0535 (Given - Provider: Sandy Wynne, LYLA)1221 (Given - Provider: Malika Champagne, LYLA) pantoprazole EC (Protonix) tablet 40 mg 40 mg, Oral, 2 TIMES DAILY, First dose on Noreen 06/24/20 at 2100, Until Discontinued, DO NOT CRUSH OR OPEN, Routine 2100 (Given - Provider: Sandy Wynne RN) 0822 (Given - Provider: Malika Champagne RN) potassium chloride ER (K-Dur/Klor-Con) tablet 40 mEq (COMPLETED) 40 mEq, Oral, ONCE, 1 dose, On Sun06/25/20 at 0730, 20 mEq tablet may be dissolved in water for administration, Routine 0822 (Given - Provid er: Malika Champagne RN) rosuvastatin (Crestor) tablet 20 mg 20 mg, Oral, EVERY EVENING, First dose on Onreen 06/24/20 at 1700, Until Discontinued, Routine 1634 (Given - Provider: Diana Angel, LYLA) Continuous Medication Order 06/23/2020 06/24/2020 06/25/2020 sodium chloride 0.9% infusion (CANCELED) 200 mL/hr, Intravenous, CONTINUOUS, Starting on Noreen 06/24/20 at 0930, Until Noreen 06/24/20 at 1420, Cath (Day of Procedure) 0928 (New Bag - Provider: Francisca Warren RN) PRN Medication Order 06/23/2020 06/24/2020 06/25/2020 acetaminophen (Tylenol) tablet 650 mg 650 mg, Oral, EVERY 4 HOURS PRN, Starting on Noreen 06/24/20 at 1609, Until Sun06/25/20 at 1818, Pain, Headaches, Maximum dose of acetaminophen is 4000 mg from all sources in 24 hours. When ordered for pain, acetaminophen should be given even when other ordered pain medications are indicated. , Routine dextrose 10% infusion(Linked Group 2) 250 mL, at 1,000 mL/hr, Intravenous, EVERY 30 MIN PRN, Starting on Noreen 06/24/20 at 1609, Until Sun06/25/20 at 1818, For BG 50-70 mg/dL: Oral treatment preferred:?? [...] for the duration of the active insulin. fentaNYL 50 mcg/mL multi-dose injection (CANCELED) ONCE PRN, Starting on Sun06/24/20 at 1151, Until Sun06/24/20 at 1420, Intra-Operative (Intra-Procedure), Routine 1151 (Given - Provider: Lynette Cotter RN)1205 (Given - Provider: Franklin Deras)1217 (Given - Provider: Franklin Deras)1340 (Given - Provider: Edmund White RN) glucagon (human recombinant) injection SolR 1 mg(Linked Group 2) 1 mg, Intramuscular, EVERY 30 MIN PRN, Starting on Sun06/24/20 at 1609, Until Sun06/25/20 at 1818, Low blood sugar, For BG 50-70 mg/dL: [...] Routine glucose (GLUTOSE) 40% oral geL(Linked Group 2) 15-30 g, Buccal, EVERY 30 MIN PRN, Starting on Noreen 06/24/20 at 1609, Until Sun06/25/20 at 1818, Low blood sugar, For BG 50-70 mg/dL: [...] weight of tube = 37.5 grams., Routine heparin (porcine) 1,000 unit/mL injection (CANCELED) ONCE PRN, Starting on Noreen 06/24/20 at 1233, Until Sun06/24/20 at 1420, Cath (Intra-Procedure), Routine 1220 (Given - Provider: Martine Russo RN)1237 (Given - Provider: Franklin Deras)1258 (Given - Provider: Edmund White RN) lidocaine (XYLOCAINE) 10 mg/mL (1 %) injection (CANCELED) ONCE PRN, Starting on Noreen 06/24/20 at 1157, Until Noreen 06/24/20 at 1420, Cath (Intra-Procedure), Routine 1157 (Given - Provider: TR Banerjee - Comment: to right radial region and bilateral groin regions) midazolam (PF) (VERSED) multi-dose injection (CANCELED) ONCE PRN, Starting on Noreen 06/24/20 at 1151, Until Noreen 06/24/20 at 1420, Cath (Intra-Procedure), Routine 1151 (Given - Provider: Lynette Cotter, LYLA)1205 (Given - Provider: Franklin Deras)1346 (Given - Provider: Martine Russo, LYLA) NORepinephrine 16 mcg/mL (standard ADULT and Pedi greater than 20 kg) infusion (CANCELED) CONTINUOUS PRN, Starting on Noreen 06/24/20 at 1250, Until Noreen 06/24/20 at 1420, Cath (Intra-Procedure), Routine 1250 (New Bag - Provider: Edmund White RN - Comment: for low BP)1255 (Stopped - Provider: Edmund White RN) protamine injection (CANCELED) ONCE PRN, Starting on Noreen 06/24/20 at 1349, Until Noreen 06/24/20 at 1420, Cath (Intra-Procedure), Routine 1349 (Given - Provider: Wayne White RN - Comment: 5mg Test Dose given first) sodium chloride 0.9 % (flush) flush (CANCELED) ONCE PRN, Starting on Noreen 06/24/20 at 1249, Until Noreen 06/24/20 at 1420, Cath (Intra-Procedure), Routine 1249 (Given - Provider: Wayne White RN) Linked Groups Order Group 1: POCT Fingerstick Glucose (CANCELED) Routine, 4 TIMES DAILY BEFORE MEALS & AT BEDTIME, First occurrence on Noreen 06/24/20 at 1700, Until Specified, Consider choosing FOUR TIMES A DAY BEFORE MEALS AND AT BEDTIME as frequency for: Patients who have good hypoglycemia awareness: -Patients who are eating meals during the day and sleeping at night -Patient who are otherwise stable And insulin lispro (HumaLOG) VIAL injection 1-5 UnitsJump to med 1-5 Units, Subcutaneous, 3 TIMES DAILY BEFORE MEALS, First dose on Noreen 06/24/20 at 1700, Until Discontinued, CORRECTION BOLUS [1-4 Units] Sensitive Sliding Scale: Correction factor 40 (1 unit of insulin is expected to drop the glucose 40 mg/dL) BG 160 - 200 Give 1 unit BG 201 - 240 Give 2 units BG 241 - 280 Give 3 units BG greater than 280, give 4 units and recheck BG in 2 hours. - If recheck BG is LESS than 280, give no insulin and resume schedule - If recheck BG is GREATER than 280, give 4 units and repeat BG in 2 hours (no more than 3 times) & call for new insulin orders. DO NOT hold if NPO, unless specifically told to do so. Per Blood Glucose Monitoring Policy, re-check a BG of > 240 in 2 hours., Routine Group 2: glucose (GLUTOSE) 40% oral geLJump to med 15-30 g, Buccal, EVERY 30 MIN PRN, Starting on Noreen 06/24/20 at 1609, Until Sun06/25/20 at 1818, Low blood sugar, For BG 50-70 mg/dL: [...] Intravenous, EVERY 30 MIN PRN, Starting on Noreen 06/24/20 at 1609, Until Sun06/25/20 at 1818, For BG 50-70 mg/dL: Oral treatment preferred:?? [...] Intramuscular, EVERY 30 MIN PRN, Starting on Noreen 06/24/20 at 1609, Until Sun06/25/20 at 1818, Low blood sugar, For BG 50-70 mg/dL: [...] active insulin., Routine documented in this encounter Care Teams Toxics Program Officer Relationship Specialty Start Date End Date Reshma Baig MD [address] [place] [address] PCP - General Family Medicine 11/08/18 06/23/21 documented as of this encounter
--- OUTSIDE RECORDS SUMMARY | 2024-03-17 14:22 | XMS_ITS | Encounter Summary ---
Author Organization [facility] Address [facility] [place] [address] Care Team Providers Care Control Center Operator Name Role Phone Reshma Baig MD Primary Care Provider [phone] Encounter Details Date Type Department Care Team (Late st Contact Info) Description 06/15/2020 Telephone General Surgery at [facility] [place] [address] Hong Rosenthal MD [facility] [place] [address] Social History Tobacco Use Types Packs/Day Years [...] Telephone Encounter - Hong Rosenthal MD - 06/15/2020 3:24 PM EDT I called to follow up on the recommendation last week that she go to her local ED. She reports she was seen and sent home. Rehydrated and sent with a cup for stool specimen. She returned this but was given another due to the wrong cup. She was having diarrhea prior to the ED visit but has been having explosive flatus without stooling since. She is using PEG and eating her normal diet. She feels bloated and the pain she developed after the most recent cholangiogram and cholecystostomy tube exchange has continued to worsen. She feels weak and has no appetite. We discussed C diff or a perihepatic collection/abscess or biliary complication as possible explanations for her symptoms. She is coming here this Sunday for a follow up cardiology appointment. We discussed that, if possible, I would like to obtain a CT abd/pelv that day and to see her in the clinic afterwards. I also recommended she stop taking the PEG and restart her prior Metamucil use; and take in a stool specimen to r/o C diff if she has more diarrhea. documented in this encounter Plan of Treatment Not on file documented as of this encounter Visit Diagnoses Diagnosis Cholecystostomy tube dysfunction, subsequent encounter Calculus of gallbladder with acute cholecystitis without obstruction Calculus of gallbladder with acute cholecystitis, without mention of obstruction Clostridium difficile colitis Intestinal infection due to clostridium difficile documented in this encounter Care Teams Control Center Operator Relationship Specialty Start Date End Date Reshma Baig MD [address] [place] [id number] PCP - General Family Medicine 11/08/18 06/23/21 documented as of this encounter
--- OUTSIDE RECORDS SUMMARY | 2024-03-17 14:22 | XMS_ITS | Encounter Summary ---
Author Organization [facility] Address [facility] [place] [address] Care Team Providers Care Stonemason Helper Name Role Phone Reshma Baig MD Primary Care Provider [phone] Encounter Details Date Type Department Care Team (Late st Contact Info) Description 06/25/2020 Notes Only Cardiology at [address] [place] [address] Lisbeth Cain MD [facility] [place] [address] Social History Tobacco Use Types Packs/Day Years Used Date Smoking Tobacco: Never Smokeless Tobacco: Never Alcohol Use Standard Drinks/Week Comments Yes 0 (1 standard drink = 0.6 oz pur e alcohol) occassional Sex and Gender Information Value Date Recorded Sex Assigned at Not on file Gender Identity Not on file Sexual Orientation Not on file documented as of this encounter Progress Notes * Lisbeth Cain MD - 06/25/2020 10:12 AM EDT Note written in error documented in this encounter Plan of Treatment Not on file documented as of this encounter Visit Diagnoses Not on filedocumented in this encounter Care Teams Stonemason Helper Relationship Specialty Start Date End Date Reshma Baig MD [address] [place], [place] [id number] PCP - General Family Medicine 11/08/18 06/23/21 documented as of this encounter
--- OUTSIDE RECORDS SUMMARY | 2024-03-17 14:22 | XMS_ITS | Encounter Summary ---
[place] [address] Care Team Providers Care Production Clerk Name Role Phone Reshma Baig MD Primary Care Provider [phone] Encounter Details Date Type Department Care Team (Late st Contact Info) Description 06/21/2020 [place] [id number] Francisca Eason, RN Social History Tobacco Use Types Packs/Day [...] on filedocumented in this encounter Care Teams Production Clerk Relationship Specialty Start Date End Date Reshma Baig MD [address] [place] [address] PCP - General Family Medicine 11/08/18 06/23/21 documented as of this encounter
--- OUTSIDE RECORDS SUMMARY | 2024-03-17 14:22 | XMS_ITS | Encounter Summary ---
Author Organization [facility] Address [facility] [place] [address] Care Team Providers Care Commercial Glazier Name Role Phone Reshma Baig MD Primary Care Provider [phone] Reason for Visit * Auth/Cert Specialty Diagnoses / Procedures Referred By Malini carlson Referred To Contact Diagnoses BILIARY COLIC Procedures PRO LAP, CHOLECYSTECTOMY/GRAPH LAPAROSCOPIC CHOLECYSTECTOMY WITH CHOLANGIOGRAM (WRVU 11.47) Referral ID Status Reason Start Date Expiration Date Visits Re quested Visits Authorized [id number] 1 1 Encounter Details Date Type Department Care Team (Latest Contact Info) Description 07/15/2020 12:57 PM EST - 07/15/2020 7:14 PM EST Hospital Encounter [place] [address] Hong Rosenthal MD [facility] [place] [address] Discharge Disposition: Home Social History Tobacco Use [...] on the next business day. Please call [phone] if you do not hear from us by that time, as your timely follow-up is very important to us. Your care was managed by the Trauma and Acute Care Surgery Team at [facility]. If you have any questions or concerns, please feel free to contact us. Provider Contact Information: General Surgery: [facility] (after business hours): Primary Care Physician: Reshma Baig MD Future Appointments Date Time Provider Department [place] 09/10/2020 11:30 AM ECHO REGULAR [facility] Card [facility] 09/10/2020 1:00 PM Sera Valentin MD [facility] CARD 4A [facility] documented in this encounter Medications at Time [...] Brand, 250.02. 1 each 0 12/02/2013 Lancets Mis Use twice daily or as needed. 200 [...] stable to dc through Same day after Morrow removed 1755 Awakesnd alert Systolic BP 140-150 [...] of surgery: 07/15/2020 Surgeon: Hong Rosenthal MD plumber's assistant: None Preoperative dx: Chronic cholecystitis with [...] and correctanatomic identification. A 5 mm clip electric blanket wirer was used to place 2 clips each [...] Date/Time Associated Diagnosis Comments RAPID COVID-19 PCR ([facility]) Routine 07/15/2020 5:20 PM EST SPECIMEN TO PATHOLOGY Routine 07/15/2020 4:53 PM EST SURGICAL PATHOLOGY REPORT Routine 07/15/2020 4:50 PM EST POCT GLUCOSE Routine 07/15/2020 4:42 PM EST Lap, Cholecystectomy/Gra ph ([id number]) 07/15/2020 3:05 PM EST BILIARY COLIC POCT GLUCOSE Routine 07/15/2020 2:07 PM EST documented in this encounter Results * COVID-19 PCR (07/15/2020 5:20 PM EST) SARS-CoV-2 RNA PCR Not Detected Not Detected [facility] Comment: This result should [...] using the Simplexa COVID-19 Direct Assay by [employer] as authorized by the FDA issued Emergency [...] Department of Pathology and Laboratory Medicine at [facility], certified under the Clinical Laboratory Improvement Amendments [...] Information for Healthcare Professionals (https://www.cdc.gov/coronavirus/2019-ncov/hcp/index.html). SARS-CoV-2 Source FAMILY SERVICES WORKER Swab [facility] Nasopharyngeal swab (specimen) 07/15/2020 5:20 PM EST 07/15/2020 5:39 PM EST Comment:Symptoms->Surveillan ce Narrative Resulting Agency Comment Spec In Lab Hong Rosenthal MD MICROBIOLOGY - GENER AL ORDERABLES Performing Organization Address [facility] [place] [address] * Specimen to Pathology (07/15/2020 4:53 PM EST) AP Specimen 07/15/2020 4:53 PM EST 07/15/2020 4:53 PM EST Narrative [facility] - 07/15/2020 4:53 PM EST Specimen requisition ordered. ??Separate Pathology report to follow Hong Rosenthal MD PATHOLOGY/CYTOLOGY O RDERABLES Performing Organization Address [facility] [place] [address] * Surgical Pathology Report (07/15/2020 4:50 PM EST) Surgical Pathology Report [id number] ? Location: [facility]; A The signing pathologist has (i) examined the relevant preparation(s) for the specimen(s) and (ii) rendered or confirmed the diagnosis(es). . ?Surgical Pathology DIAGNOSIS Gallbladder: - Chronic cholecystitis and cholelithiasis. Electronically signed by: ??Kareem Causey MD Verified: ??07/21/2020 ?Pathologist Performed at: ??-[facility] Dept. of Pathology, [place], [place] SPECIMEN(S) SUBMITTED A - Gallbladder, excision [...] hepatic margin is inked black Sections/Processi ng: Electrical Fitter sections in 1 cassettes as follows: ?A1: ??cystic duct margin and employment program representative mucosa. ??AJ [facility] 07/15/2020 4:50 PM EST Hong Rosenthal MD PATHOLOGY/CYTOLOGY O RDERATOAN Performing Organization Address [facility] Co de Phone Number [facility] [place] [address] * POCT Glucose (07/15/2020 4:42 PM EST) POC Glucose 163 65 - 199 mg/dL [facility] Comment: Supplemental ranges: <140 mg/dL before meals <180 mg/dL all other times of the day Blood specimen (specimen) 07/15/2020 4:42 PM EST 07/15/2020 4:42 PM EST Hong Rosenthal MD POINT OF CARE TEST O RDERATOAN Performing Organization Address [facility] Co de Phone Number [facility] [place] [address] * POCT Glucose (07/15/2020 2:07 PM EST) POC Glucose 147 65 - 199 mg/dL [facility] Comment: Supplemental ranges: <140 mg/dL before meals <180 mg/dL all other times of the day Blood specimen (specimen) 07/15/2020 2:07 PM EST 07/15/2020 2:07 PM EST Hong Rosenthal MD POINT OF CARE TEST O ISAIAH [facility] [place] [id number] documented in this encounter Visit Diagnoses Not on filedocumented in this encounter Active and Recently Administered Medications Times are shown in EST. Scheduled Medication Order 07/13/2020 07/14/2020 07/15/2020 ceFAZolin (Ancef) 2 g in dextrose 5% 100 mL infusion 2 g, Intravenous, AUDIO/VISUAL MANAGER TO O.R., 1 dose, On Noreen 07/15/20 [...] 1:100,000) documented in this encounter Care Teams Commercial Glazier Relationship Specialty Start Date End Date Reshma Baig MD [address] [place] [address] PCP - General Family Medicine 11/08/18 06/23/21 documented as of this encounter
--- OUTSIDE RECORDS SUMMARY | 2024-03-17 14:22 | XMS_ITS | Encounter Summary ---
Author Organization [facility] Address [place] [address] Care Team Providers Care Dialysis Biomed Technician Name Role Phone Reshma Baig MD Primary Care Provider [phone] Encounter Details Date Type Department Care Team (Late st Contact Info) Description 07/07/2020 Notes Only Cardiology at [address] [address] Sera Valentin MD [facility] [place] [address] Social History Tobacco Use Types Packs/Day Years [...] on filedocumented in this encounter Care Teams Dialysis Biomed Technician Relationship Specialty Start Date End Date Reshma Baig MD [address] [place] [address] PCP - General Family Medicine 11/08/18 06/23/21 documented as of this encounter
--- OUTSIDE RECORDS SUMMARY | 2024-03-17 14:22 | XMS_ITS | Encounter Summary ---
[place] [address] Care Team Providers Care Water Resource Agent Name Role Phone Reshma Baig MD Primary Care Provider [phone] Reason for Visit * Reason Onset Date Comments Public Health Screening 06/21/2020 pre-op Encounter Details Date Type Department Care Team (Late st Contact Info) Description 06/21/2020 Telephone [place] [id number] Tran Melendez LPN Public Health Screening (pre-op) Social History Tobacco Use Types Packs/Day Years [...] encounter Miscellaneous Notes * Telephone Encounter - Tran Melendez LNA - 06/21/2020 12:32 PM EDT Telephone call placed/received to schedule covid 19 testing with patient. Ordering provider: Sera Valentin MD Testing Facility: [place] Date of Testin/27 Time of Testing: TBD Symptoms: pre-op Is this the first test for Covid 19 unknown If no, please list date of previous test, result, and type of test (Molecular, Antigen, Antibody orunknown): Resides in congregate care setting No Employee or Household Member of Employee No Healthcare Worker No documented in this encounter Plan of Treatment Not on file documented as of this encounter Visit Diagnoses Not on filedocumented in this encounter Care Teams Water Resource Agent Relationship Specialty Start Date End Date Reshma Baig MD [address] [place] [address] PCP - General Family Medicine 11/08/18 06/23/21 documented as of this encounter
--- OUTSIDE RECORDS SUMMARY | 2024-03-17 14:22 | XMS_ITS | Encounter Summary ---
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 Operator Name Role Phone Reshma Baig MD Primary Care Provider Reason for Referral * Diagnostic Test (Routine) - Closed Specialty Diagnoses / Procedures Referred By Malini t Referred To Contact Radiology Diagnoses Calculus of gallbladder with acute cholecystitis without obstruction Cholecystostomy tube dysfunction, subsequent encounter Procedures CT Abdomen & Pelvis w Contrast Hong Rosenthal MD [facility] [place] [address] [facility] [place] [address] Referral ID Status Reason Start Date Expiration Date V isits Requested Visits Authorized [id number] Closed Specialty Service Requested 06/16/2020 12/12/2020 1 1 Reason for Visit * Diagnostic Test (Routine) - Closed Specialty Diagnoses / Procedures Referred By Malini carlson Referred To Contact Radiology Diagnoses Calculus of gallbladder with acute cholecystitis without obstruction Cholecystostomy tube dysfunction, subsequent encounter Procedures CT Abdomen & Pelvis w Contrast Hong Rosenthal MD [facility] [place] [address] [facility] [place] [address] Referral ID Status Reason Start Date Expiration Date V isits Requested Visits Authorized [id number] Closed Specialty Service Requested 06/16/2020 12/12/2020 1 1 Encounter Details Date Type Department Care Team (Latest Contact Info) Description 06/18/2020 10:23 AM EDT - 06/18/2020 11:59 PM EDT Hospital Encounter CT Scan at [facility] [place] [address] Hong Rosenthal MD [facility] [place] [address] Calculus of gallbladder with acute cholecystitis without obstruction; Cholecystostomy tube dysfunction, subsequent encounter Discharge Disposition: Home Social History Tobacco Use [...] 250.02. 1 each 0 12/02/2013 [place] [facility] [place] or as needed. 200 each 3 12/02/2013 furosemide (Lasix) 20 mg Tablet Take 1 tablet by mouth 2 times daily. 90 tablet 3 06/18/2020 06/25/2020 oxyCODONE (Roxicodone) 5 mg Tablet Take 1 tablet by mouth every 4 hours as needed for Pain. 3 tablet 06/04/2020 09/10/2020 clopidogreL (Plavix) 75 mg Tablet Take 1 tablet by mouth daily. 90 tablet 3 05/08/2020 08/30/2021 metoprolol succinate XL (Toprol-XL) 100 mg Tablet Sustained Release 24 hr Take 3 tablets by mouth nightly. 30 tablet 12 05/08/2020 06/25/2020 losartan (Cozaar) 25 mg Tablet Take 1 [...] 02/28/2017 09/10/2020 documented as of this encounter Plan of Treatment Not on file documented as of this encounter Procedures Procedure Name Priority Date/Time Associated Diagnosis Comments CT ABDOMEN AND PELVIS W CONTRAST Routine 06/18/2020 1:06 PM EDT Calculus of gallbladder with acute cholecystitis without obstruction Cholecystostomy tube dysfunction, subsequent encounter documented in this encounter Results * CT Abdomen & Pelvis w Contrast (06/18/2020 1:06 PM EDT) Anatomical Region Laterality Modality Abdomen, Pelvis Computed Tomogra phy Impressions 06/18/2020 3:03 PM EDT Interval resolution of a previously perihepatic fluid collection. Unchanged positioning of the cholecystostomy tube without evidence of complication. I have personally reviewed the image(s) and the resident's interpretation and agree with the findings, Renny Orta MD at 06/18/2020 3:03 PM Thank you for letting us participate in the care of this patient. For questions regarding this report, please contact the number below. ? Electronically signed by: Renny Orta MD, [facility] ([phone]), at 06/18/2020 3:03 PM Narrative 06/18/2020 3:03 PM EDT EXAMINATION: CT ABDOMEN AND PELVIS W CONTRAST CLINICAL HISTORY: Abdominal distension; Abdominal infection suspected - Include more detail below Acute mid-back + RUQ after percutaneous cholecystostomy manipulation 06/03, has continued to worsen and now associated with change in bowel habit. TECHNIQUE: Helical CT of the abdomen and pelvis was performed following the intravenous administration of contrast. 94 cc of Omnipaque 350. Oral contrast was administered. COMPARISON: CT abdomen/pelvis 04/27/2020 FINDINGS: Lower chest: Interval resolution of the bilateral pleural effusions. Mild atelectasis. Liver: Normal size and attenuation without lesions. Recently noted perihepatic abscess has resolved. Bile ducts: Nondilated. Gallbladder: Unchanged appearance of the cholecystostomy drain within the gallbladder lumen. Calcified cholelithiasis is present. No abnormal thickening or pericholecystic fluid. Pancreas: Normal attenuation without ductal dilatation. Spleen: Normal size. Unchanged 1 cm hypoattenuating lesion. Adrenals: Normal. Kidneys: Normal. Urinary Bladder: Normal. Vasculature: No abdominal aortic aneurysm. Calcified atherosclerotic plaque without stenosis. Lymph Nodes: No enlarged lymph nodes. Bowel: Nondilated, no wall thickening. The appendix is normal. Peritoneum and mesentery: No ascites, free air, or loculated fluid collection. No mesenteric inflammation. Abdominal wall: Unchanged sebaceous cyst in the subcutaneous tissues of the lower back, just to the right of midline (series 3, image 63). Reproductive organs: Uterus surgically absent. Osseous structures: No suspicious lesions. Procedure Note Renny Orta MD - 06/18/2020 EXAMINATION: CT ABDOMEN AND PELVIS W CONTRAST CLINICAL HISTORY: Abdominal distension; Abdominal infection suspected -Include more detail below Acute mid-back + RUQ after percutaneous cholecystostomy manipulation 06/03,has continued to worsen and now associated with change in bowel habit. TECHNIQUE: Helical CT of the abdomen and pelvis was performed followingthe intravenous administration of contrast. 94 cc of Omnipaque 350. Oralcontrast was administered. COMPARISON: CT abdomen/pelvis 04/27/2020 FINDINGS: Lower chest: Interval resolution of the bilateral pleural effusions.Mild atelectasis. Liver: Normal size and attenuation without lesions. Recently notedperihepatic abscess has resolved. Bile ducts: Nondilated. Gallbladder: Unchanged appearance of the cholecystostomy drain withinthe gallbladder lumen. Calcified cholelithiasis is present. No abnormalthickening or pericholecystic fluid. Pancreas: Normal attenuation without ductal dilatation. Spleen: Normal size. Unchanged 1 cm hypoattenuating lesion. Adrenals: Normal. Kidneys: Normal. Urinary Bladder: Normal. Vasculature: No abdominal aortic aneurysm. Calcified atheroscleroticplaque without stenosis. Lymph Nodes: No enlarged lymph nodes. Bowel: Nondilated, no wall thickening. The appendix is normal. Peritoneum and mesentery: No ascites, free air, or loculated fluidcollection. No mesenteric inflammation. Abdominal wall: Unchanged sebaceous cyst in the subcutaneous tissues ofthe lower back, just to the right of midline (series 3, image 63). Reproductive organs: Uterus surgically absent. Osseous structures: No suspicious lesions. IMPRESSION Interval resolution of a previously perihepatic fluid collection.Unchanged positioning of the cholecystostomy tube without evidence ofcomplication. I have personally reviewed the image(s) and the resident's interpretationand agree with the findings, Renny Orta MD at 06/18/2020 3:03 PM Thank you for letting us participate in the care of this patient. Forquestions regarding this report, please contact the number below. Electronically signed by: Renny Orta MD, [facility]([phone]), at 06/18/2020 3:03 PM Hong Rosenthal MD IMG CT ORDERABLES documented in this encounter Visit Diagnoses Diagnosis Calculus of gallbladder with acute cholecystitis without obstruction Calculus of gallbladder with acute cholecystitis, without mention of obstruction Cholecystostomy tube dysfunction, subsequent encounter documented in this encounter Administered Medications Inactive Administered Medications - up to 3 most recent administrations Medication Order MAR Action Action Date Dose Rate Site iohexoL (Omnipaque) 350 mg/mL solution 0-200 mL 0-200 mL, Intravenous, ONCE PRN, 1 dose, Starting on Sun06/18/20 at 1306, Until Sun06/18/20 at 1306, Per Protocol, Warning Vesicant/Irritant Medication , Radiology Contrast, Routine Given 06/18/2020 1:06 PM EDT 94 mLs iohexoL (Omnipaque) 350 mg/mL solution 0-50 mL 0-50 mL, Oral, ONCE PRN, 1 dose, Starting on Sun06/18/20 at 1306, Until 06/18/20 at 1306, Per Protocol, Warning Vesicant/Irritant Medication , Radiology Contrast, Routine Given 06/18/2020 1:06 PM EDT 50 mLs documented in this encounter Care Teams Cigarette Making Machine Operator Relationship Specialty Start Date End Date Reshma Baig MD [address] [place] [id number] PCP - General Family Medicine 11/08/18 06/23/21 documented as of this encounter
--- OUTSIDE RECORDS SUMMARY | 2024-03-17 14:22 | XMS_ITS | Encounter Summary ---
[place] [address] Care Team Providers Care Pack Changer Name Role Phone Reshma Baig MD Primary Care Provider [phone] Encounter Details Date Type Department Care Team (Late st Contact Info) Description 06/21/2020 [place] [address] Francisca Eason, RN COVID-19 ruled out Social History Tobacco Use Types Packs/Day Years [...] as of this encounter Visit Diagnoses Diagnosis COVID-19 ruled out documented in this encounter Care Teams Pack Changer Relationship Specialty Start Date End Date Reshma Baig MD [address] [place] [address] PCP - General Family Medicine 11/08/18 06/23/21 documented as of this encounter
--- OUTSIDE RECORDS SUMMARY | 2024-03-17 14:22 | XMS_ITS | Encounter Summary ---
Author Organization [facility] Address [facility] [place] [address] Care Team Providers Care Child Care Development Specialist Name Role Phone Reshma Baig MD Primary Care Provider [phone] Reason for Visit * Auth/Cert Specialty Diagnoses [...] Expiration Date Visits Re quested Visits Authorized [id number] 1 1 Encounter Details Date Type Department Care Team (Late st Contact Info) Description 06/24/2020 9:30 AM EDT - 06/24/2020 11:30 AM EDT Surgery [place] [address] Esau Valentin MD [facility] [place] [address] CARDIAC CATHETERIZATION Social History Tobacco Use Types [...] Sign Reading Time Taken Comments Blood Pressure 126/42 06/24/2020 9:01 AM EDT Pulse 67 06/24/2020 9:01 AM EDT Temperature 36.6 ??C (97.9 ??F) 06/24/2020 9:01 AM ED T Respiratory Rate 16 06/24/2020 9:01 AM EDT Oxygen Saturation 99% 06/24/2020 9:01 AM EDT Inhaled Oxygen Concentration - - Weight 79.4 kg (175 lb) 06/24/2020 9:01 AM EDT Height 157.5 cm (5' 2) 06/24/2020 9:01 AM EDT Body Mass Index 32.18 06/24/2020 9:01 AM EDT documented in this encounter Discharge Summaries * OsielInez, COAT AGENT - 06/25/2020 1:37 PM EDT Discharge Summary Patient Name: Shannan Thomas Patient Age: 79 y.o. Language: Belizean Race: White Ethnicity: Not nor Admit date: [...] Arnold MD Sarah Hansen, PA-C Bridget Meador, COAT AGENT Cardiovascular Medicine [phone] Discharge Diagnoses (Hospital Problems) and Secondary Diagnoses [...] Comments: Valvuloplasty Balloon: 18mmx4.5cm True Dilitation Balloon, Lot#[id number]. 2nd Balloon 20mmx4.5cm True Dilitation Balloon Lot#[id number]. Ultrasound and fluoroscopy used to select vascular [...] Quantity: 300 each Refills: 3 Blood-Glucose Meter Mis One Touch Ultra Brand, 250.02. Quantity: 1 [...] of 8A-5PM please call the Cardiology Clinic [phone] to speak with a nurse. All other hours please call the Hospital Manufactured Buildings Supervisor [phone] and ask to speak to the tracer lathe set up operator on-call. Return to work: One week Driving: No driving for 48 hours after cath Follow up Appointments: Doctor Where Phone # Date Time PCP Reshma Baig MD [address] [place] [address] Thursday, July 02, [address] Baig's LIQUOR CLERK 9:00 am (please arrive by 8:45 am) Underground Truck Operator-- Dr. Galindo [facility] Cardiology office [phone] Monday, July 13, 2020 10:40 am Home oxygen therapy: N/A Arrangements for VNA/home care: N/A Future Appointments and Orders Future Orders Complete By Expires Referral to Home Health - at DISCHARGE [[id number] CPT(R)] As directed Process Instructions: Scheduling Instructions: Comments: DOCUMENTATION FOR VNA SERVICES (INCLUDING THOSE PATIENTS WITH MEDICARE COVERAGE REQUIRING HOME VNA SERVICES AND/OR HOSPICE SERVICES) PATIENT'S LOCATION: [address] [address] (home) Cell: Telephone Information: Jig Hand's Name: Patient In discussion with the attending physician, it is certified that this patient is under their care and that they, or a Nurse Practitioner,Clinical Nurse specialist or Physician Claim Benefit Specialist who is working directly with them, had a face to face encounter that meets the physician face to face encounter requirements with this patient on 06/25/20 ( please enter DC date here) The encounter [...] previously in place. HOME HEALTH CARE AGENCY: [facility] PHONE: [phone] FAX: [phone] Start of care: 24 to 48 hours [...] Reshma Baig MD [address] / [facility] [address] All A agencies which cover the area of patient's residence have been reviewed, either verbally janay writing, and patient/family have chosen the home health care agency noted Questions: Agency name and contact information: [facility] Patient location post discharge: home What services are requested: Registered Nurse Start date: Responsible MD post discharge contact info: PCP Discharge References/Attachments None Inez Cartagena, KAMI, WIRE RIGGER-BC, COAT AGENT [facility] Cardiovascular Medicine Associated attestation - Maria L Salazar MD - 06/25/2020 3:23 PM EDT Cardiology Attending Discharge Addendum I was the assigned attending production maintenance mechanic for this clinical encounter. For the purposes [...] My contact information: Maria L Cortes MD MPH [address] [address] (office); Pager #[phone] Email: [email or web address] documented in this encounter Discharge Instructions * Discharge Instructions* Inez Cartagena APRN - 06/25/2020 1:34 PM EDT Call your doctor if: Chest pain, dyspnea, pain or swelling in legs occurs If you have non-emergent questions, prior to your follow-up visit call: Sunday-Sunday between the hours of 8A-5PM please call the Cardiology Clinic [phone] to speak with a nurse. All other hours please call the Hospital Manufactured Buildings Supervisor [phone] and ask to speak to the tracer lathe set up operator on-call. Return to work: One week Driving: No driving for 48 hours after cath Follow up Appointments: Doctor Where Phone # Date Time PCP Reshma Baig MD [address] [place] [id number] Thursday, July 02, [address] Baig's LIQUOR CLERK 9:00 am (please arrive by 8:45 am) Underground Truck Operator-- Dr[facility] Galindo [facility] Cardiology office [phone] Monday, July 13, 2020 10:40 am Home [...] Brand, 250.02. 1 each 0 12/02/2013 [facility] Use twice daily or as needed. [...] RN - 06/25/2020 1:51 PM EDT The patient/marketing development representative has been provided a list of Home Health Agencies/DME vendors which servetheir preferred geographic area. A letter describing our affiliations was reviewed with them and they were educated about their right to choose where referrals are placed. Provided patient with [facility] Star Quality Rating for Home care hand out. Patient requests referral to [facility] PHONE: [phone] FAX: [phone] Expected date of discharge: 06/25/20. Referral routed to the Exhaust Emissions Automotive Technician for matching with agency/vendor and to provide any required information. 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 Aortic valve stenosis Added automatically from request for surgery [id number] ??? Severe aortic stenosis Resolved Hospital Problems [...] and vitals reviewed. Lab Comments: Recent Labs 06/25/20 0513 06/24/20 0840 WBC 5.7 6.6 HGB 7.8* 8.7* HCT 27.1* 29.0* PLATELET 240 257 No results for input(s): INR in the last 168 hours. Recent Labs 06/25/20 0513 06/24/20 0840 NA 139 137 K 3.6 [...] 6. No pericardial effusion. Prior Cardiac Studies: [facility] 04/21/20 Conclusions: * Two vessel coronary artery [...] Maria L Chawla MD. Inez Cartagena, MSN, [facility]-, COAT AGENT 06/25/2020 Pager [phone] Associated attestation - Maria L Salazar MD - 06/25/2020 3:24 PM EDT I was the assigned attending production maintenance mechanic for this clinical encounter. 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 Aortic valve stenosis Added automatically from request for surgery [id number] ??? Severe aortic stenosis Resolved Hospital Problems No resolved problems to display. Interval History: This is a 79 year old female with a with a history of severe undergoing TAVR evaluation, CAD s/postial RCA PCI 04/21/20 on DAPT, cholecystitis w/ [...] for pacemaker, manual hold Prior Cardiac Studies: [facility] 04/21/20 Conclusions: * Two vessel coronary artery [...] SCDs Discussed with Esau Valentin MD;Benoit Ravi* TR Negrete-C Pager #[phone] 06/24/2020 Associated attestation - Benoit Schumacher MD [...] date: 06/24/2020 Attending Physician: Esau Valentin MD [facility] Interventional Cardiology Adult Pre-Procedure H&P Update: Mrs Shannan Thomas (Gladis) [id number] 1940 Chief Complaint: dyspnea, fatigue, severe aortic [...] Medical History: SOCIAL Hx: 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 (Only good for 90 days) Any patient receiving care at [facility] must abide by [place] law. The hierarchy for surrogate decision making [...] (i) The agent with financial power of document review attorney or a conservator appointed in accordance [...] DC: None Home Address confirmed as: [address] [facility] [address] Social & Family Supports: All names listed below confirmed with patient as current and correct. Extended Emergency Contact Information Primary Emergency Contact: NATTY REDMAN Mobile Relation: Child Secondary Emergency Contact: ROSHAN ALDRIDGE [address] Mobile Relation: None Community Resources being provided currently: Outpatient/Agency/Support Group Needs: (none) Behavioral Health History: Current or Prior Mental Health History: none noted Other Pertinent/Service Specific Information: No Health/Prescription Coverage: Primary Insurance: [place] Pay[place] / Plan[place] VHP / Product Type: *No Product type* / Secondary Insurance: MEDICARE Prescription Coverage: yes Preferred Pharmacy: [id number] - [place], [place] - [address] [place] [address] AT SEC OF [facility] [address] [facility] [address] [facility] [phone] [facility] [place] - [facility] [address] [facility] [place], [place] - [address] [facility] [address] [facility] [address] Primary Care Provider: Reshma Baig MD [phone] Patient/Caregiver Goals of Treatment: DC home Potential [...] assist with transition of care planning. Chioma Vann, RN, MSN, produce department manager Office of Care Management Pager: [phone] Work * Plan of Care - Wendie [...] Operative Note Patient Name: Shannan Thomas : [id number] MR#: [id number] Case Date: 06/24/2020 Surgeon: Surgeon(s) and Role: * Esau Valentin MD - Primary * Dago Merchant PA - Physician Claim Benefit Specialist Preoperative diagnosis: Aortic valve stenosis, etiology of [...] 5:13 AM EDT DIFFERENTIAL, AUTOMATED Routine 06/25/20 5:13 AM EDT HC CBC,PLT & AUTO DIFF Routine 0 5:13 AM EDT HC MAGNESIUM, SERUM Routine 06/25/2020 5 :13 AM EDT POCT GLUCOSE Routine 06/24/2020 9:03 PM EDT POCT GLUCOSE Routine 06/24/2020 3:59 PM EDT EKG 12-LEAD Routine 06/24/2020 2:28 PM EDT Aortic valve stenosis, etiology of cardiac valve disease unspecified CARDIAC CATHETERIZATION Routine 06/24/20 20 2:13 PM EDT Aortic valve stenosis, etiology of cardiac valve disease unspecified POCT GLUCOSE Routine 06/24/2020 12:53 PM EDT POCT GLUCOSE Routine 06/24/2020 9:18 AM EDT EKG 12-LEAD Routine 06/24/2020 9:15 AM EDT Aortic valve stenosis, etiology of cardiac valve disease unspecified HEMOGRAM Routine 06/24/2020 8:40 AM EDT Aortic valve stenosis, etiology of cardiac valve disease unspecified DIFFERENTIAL, AUTOMATED Routine 06/24/20 20 8:40 AM EDT Aortic valve stenosis, etiology [...] POC Glucose 177 65 - 199 mg/dL [facility] Comment: Supplemental ranges: <140 mg/dL before meals <180 mg/dL all other times of the day Blood specimen (specimen) 06/25/2020 11:55 AM EDT 06/25/2020 11:55 AM EDT Maria L Chawla MD POINT OF CAR E TEST ORDERABLES [facility] [place] [address] * ECHO LMTD W/O CONTRAST W LMTD SPEC DOPP COLOR DOPP (06/25/2020 10:56 AM EDT) EF 72 HEARTLAB SYSTEM Anatomical Region Laterality Modality Other 06/25/2020 Narrative 06/25/2020 11:17 AM EDT Procedure: ?Transthoracic Echocardiogram Patient: ?WILLIAM Francis ? (Age): 1940(79y) Med Rec#: ? [id number] ?Sex: ?F ? Site Loc: ? [facility] ?Ht / Wt: ??158(cm)/79(kg) Pt. Loc: ?Adult Floor ? BSA: ?1.81 Study Date: ?? 06/25/2020 ?Pt. Type: Inpatient Tape: ? Referring: ESAU VALENTIN J Reading: Alvin Ramos ([id number]) Resawyer: Alvin Herrera, [facility] Diagnosis: *Nonrheumatic aortic (valve) stenosis (I35.0) *Limited [...] Vmax ?1.91 ? m/sec ? MV deceleration [id number] ?msec ? MV A-wave Vmax ?1.38 ? [...] ? Mid-Inferior ?Normal ? Mid-Inferoseptal ?Normal ? [place]-Septal ? Normal ? [place]-Anterior ? Normal ? [place]-Lateral ?Normal ? [place]-Inferior ? Normal ? [place]-Tip ?Normal ? This report has been electronically signed by: Alvin Ramos MD ? 06/25/2020 11:16:39 Images reviewed and interpretation verified [facility] Cardiac Ultrasound Laboratory Procedure Note Alvin Ramos MD - 06/25/2020 Procedure: Transthoracic Echocardiogram Patient: WILLIAM Francis (Age): 1940(79y) Med Rec#: [id number] Sex: F Site Loc: [facility] Ht / Wt: 158(cm)/79(kg) Pt. Loc: Adult Floor BSA: 1.81 Study Date: 06/25/2020 Pt. Type: Inpatient Tape: Referring: ESAU VALENTIN J Reading: Alvin Ramos ([id number]) Resawyer: Alvin Herrera [facility] Diagnosis: *Nonrheumatic aortic (valve) stenosis (I35.0) *Limited [...] MV E-wave Vmax 1.91 m/sec MV deceleration [id number] msec MV A-wave Vmax 1.38 m/sec MV [...] Normal Mid-Posterolateral Normal Mid-Inferior Normal Mid-Inferoseptal Normal [place]-Septal Normal [place]-Anterior Normal [place]-Lateral Normal [place]-Inferior Normal [place]-Tip Normal This report has been electronically signed by: Alvin Ramos MD 06/25/2020 11:16:39 Images reviewed and interpretation verified [facility] Cardiac Ultrasound Laboratory Benoit Schumacher MD ECHO ORDERABLES * POCT Glucose (06/25/2020 7:39 AM EDT) Pathologist [facility] POC Glucose 141 65 - 199 mg/dL [facility] Comment: Supplemental ranges: <140 mg/dL before meals <180 mg/dL all other times of the day Blood specimen (specimen) 06/25/2020 7:39 AM EDT 06/25/2020 7:39 AM EDT Maria L Chawla MD POINT OF CAR E TEST ORDERABLES [facility] [place] [address] * EKG 12 Lead (06/25/2020 7:16 AM EDT) Ventricular rate 59 BPM MUSE SYSTEM Atrial Rate 59 BPM MUSE SYSTEM P-R Interval 138 ms MUSE SYSTEM QRS Duration 126 ms MUSE SYSTEM Q-T Interval 482 ms MUSE SYSTEM QTC Calculated (Bezet) 477 ms MUSE SYSTEM Calculated P Silver[place] 16 degrees MUSE SYSTEM Calculated R [place] 64 degrees MUSE SYSTEM Calculated T [place] -34 degrees MUSE SYSTEM INTERPRETATION Sinus bradycardia Right bundle branch block T wave abnormality, consider inferior ischemia Abnormal ECG When compared with ECG of 24-JUN-2020 14:28, Right bundle branch block has replaced Non-specific intra-ventricular conduction block I personally reviewed the tracing and edited the fellows interpretation Confirmed by fellow Alvin Otoole ([id number]) on 06/25/2020 1:49:17 PM Confirmed by MD Castillo Michael ([id number]) on 06/25/2020 5:18:05 PM MUSE SYSTEM 06/25/2020 7:16 AM EDT 06/25/2020 5:18 PM EDT Benoit Schumacher MD ECG ORDERABLES MUSE SYSTEM * Differential, Automated (06/25/2020 5:13 AM EDT) Neutrophils % 57.5 % [facility] Neutr Abs (ANC) 3.28 1.70 - 6.10 x10(3)/[facility] Lymphocytes % 25.4 % [facility] Lymphocytes Abs 1.4 0.9 - 3.2 x10(3)/[facility] Monocytes % 10.0 % [facility] Monocyte Abs 0.6 0.3 - 0.9 x10(3)/[facility] Eosinophils % 5.6 % [facility] Eosinophils Abs 0.3 0.0 - 0.4 x10(3)/[facility] Basophils % 1.1 % [facility] Basophils Abs 0.1 0.0 - 0.1 x10(3)/[facility] Immature Gran % 0.40 % [facility] Comment: Immature granulocytes(IG's)percentage and absolute count will include metamyelocytes, myelocytes, and promyelocytes. Blood smears from CBCs yielding IG's will be scanned manually for concordance. If this scan disagrees with the automated IG or if promyelocytes are noted, a manual differential will be performed. Nanci Gran Abs 0.02 0.00 - 0.04 x10(3)/[facility] Blood specimen (specimen) 06/25/2020 5:13 AM EDT 06/25/2020 5:32 AM EDT Narrative Resulting Agency Comment Spec In Lab Candice Ivan ARMANDO HEMATOLOGY ORDERABL ES [facility] [place] [address] * (ABNORMAL) Hemogram (06/25/2020 5:13 AM EDT) WBC 5.7 4.0 - 9.5 x10(3)/[facility] RBC 3.18(L) 4.00 - 5.21 x10(6)/[facility] Hemoglobin 7.8(L) 11.7 - 15.5 gm/dL [facility] Hematocrit 27.1(L) 35.7 - 45.8 % [facility] MCV 85.2 82.6 - 94.4 fL [facility] MCH 24.5(L) 27.1 - 32.0 pg [facility] MCHC 28.8(L) 31.7 - 35.0 gm/dL [facility] Platelets 240 145 - 357 x10(3)/[facility] LABORATORY RDWSD 43.9 37.0 - 46.0 [facility] LABORATORY RDWCV 14.1 11.5 - 14.1 % [facility] MPV 9.9 7.6 - 12.9 [facility] LABORATORY nRBC % Auto 0.0 % [facility] nRBC Abs Auto 0.000 0.000 - 0.000 x10(3)/[facility] Blood specimen (specimen) 06/25/2020 5:13 AM EDT 06/25/2020 5:32 AM EDT Narrative Resulting Agency Comment Spec In Lab Candice ARMANDO HEMATOLOGY ORDERABL ES [facility] [place] [address] * (ABNORMAL) CMP w/fasting Glucose (06/25/2020 5:13 AM EDT) Glucose Fasting 150(H) 65 - 99 mg/dL [facility] Comment: ?Fasting* Glucose Interpretive Criteria [...] of Diabetes Mellitus, Position Statement from the [place] Diabetes Association. ??Diabetes Care, Volume 33, Supplement 1, Aug 2009 BUN 10 8 - 18 mg/dL [facility] Creatinine 0.73 0.70 - 1.20 mg/dL [facility] Sodium 139 135 - 145 mmol/L [facility] Potassium 3.6 3.5 - 5.0 mmol/L [facility] Comment: Please note: ??Patients with WBC >100,000 may have falsely elevated Potassium levels. ??For accurate Potassium quantification in these patients send serum separator tube (gold top) for subsequent determinations. ??Contact the Clinical Chemistry Laboratory if there are any questions. Chloride 108(H) 98 - 107 mmol/L [facility] CO2 23 22 - 31 mmol/L [facility] Anion Gap 8 5 - 15 mmol/L [facility] Calcium 8.4(L) 8.5 - 10.5 mg/dL [facility] Total Protein 5.7(L) 6.1 - 8.0 gm/dL [facility] Albumin 3.4 3.2 - 5.2 gm/dL [facility] AST 15 0 - 30 unit/L [facility] ALT 12 0 - 30 unit/L [facility] Alk Phos 86 35 - 105 unit/L [facility] Total Bilirubin 0.9 0.2 - 1.3 mg/dL [facility] Estimated GFR 78 >=60 mL/min/1. 73 m?? [facility] Comment: The eGFR was calculated using the CKD-EPI equation. As with all creatinine based estimates of kidney function, eGFR values calculated with the CKD-EPI equation are not accurate in patients with acute kidney failure, extremes of body mass or the acutely ill. http://[employer]/[facility] eGFR 91 >=60 mL/min/1. 73 m?? [facility] Comment: The eGFR was calculated using the CKD-EPI equation. As with all creatinine based estimates of kidney function, eGFR values calculated with the CKD-EPI equation are not accurate in patients with acute kidney failure, extremes of body mass or the acutely ill. http://[employer]/[facility] Blood specimen (specimen) 06/25/2020 5:13 AM EDT 06/25/2020 5:32 AM EDT Narrative Resulting Agency Comment Spec In Lab Benoit Schumacher MD CHEMISTRY ORDER JAMIE [facility] [place] [address] * Magnesium (06/25/2020 5:13 AM EDT) Magnesium 0.70 0.69 - 1.07 mmol/L [facility] Blood specimen (specimen) 06/25/2020 5:13 AM EDT 06/25/2020 5:32 AM EDT Narrative Resulting Agency Comment Spec In Lab Benoit Schumacher MD CHEMISTRY ORDER JAMIE Performing Organization Address City/[facility] Co de Phone Number [facility] [place] [address] * POCT Glucose (06/24/2020 9:03 PM EDT) POC Glucose 197 65 - 199 mg/dL [facility] Comment: Supplemental ranges: <140 mg/dL before meals <180 mg/dL all other times of the day Blood specimen (specimen) 06/24/2020 9:03 PM EDT 06/24/2020 9:03 PM EDT Benoit Schumacher MD POINT OF CARE T EST ORDERABLES Performing Organization Address [facility] Co de Phone Number [facility] [place] [address] * POCT Glucose (06/24/2020 3:59 PM EDT) POC Glucose 95 65 - 199 mg/dL [facility] Comment: Supplemental ranges: <140 mg/dL before meals <180 mg/dL all other times of the day Blood specimen (specimen) 06/24/2020 3:59 PM EDT 06/24/2020 3:59 PM EDT Esau Valentin MD POINT OF CARE MISTY T ORDERABLES Performing Organization Address [facility] Co de Phone Number [facility] [place] [address] * EKG 12 Lead (06/24/2020 2:28 PM EDT) Ventricular rate 78 BPM MUSE SYSTEM Atrial Rate 78 BPM MUSE SYSTEM P-R Interval 202 ms MUSE SYSTEM QRS Duration 134 ms MUSE SYSTEM Q-T Interval 470 ms MUSE SYSTEM QTC Calculated (Bezet) 535 ms MUSE SYSTEM Calculated P [place] 52 degrees MUSE SYSTEM Calculated R [place] 99 degrees MUSE SYSTEM Calculated T [place] -60 degrees MUSE SYSTEM INTERPRETATION Normal sinus rhythm Rightward axis Non-specific intra-ventricula r conduction block T wave abnormality, consider anterolateral ischemia Abnormal ECG When compared with ECG of 24-JUN-2020 09:15, Non-specific intra-ventricula r conduction block has replaced Right bundle branch block Confirmed by MD AMES SALVATORE ([id number]) on 06/24/2020 8:55:02 PM MUSE SYSTEM 06/24/2020 2:28 PM EDT 06/24/2020 8:55 PM EDT Esau Valentin MD ECG ORDERABLES MUSE SYSTEM * CARDIAC CATHETERIZATION (06/24/2020 2:13 PM EDT) Anatomical Region Laterality Modality Other Narrative 06/24/2020 2:49 PM EDT ?[facility] ? Cardiac Catheterization/Intervention Report ? Patient Name: WILLIAM, SHANNAN A. ? Procedure Date: 06/24/2020 ? A #: [id number] ? Primary Physician: Esau Valentin ? Case #: [id number] ? File Name: [id number] ? Catheterization Order Number: [id number] ? [facility] ? Final Report [place], [place] ? Patient Name: ? SHANNAN A. WILLIAM ? ID#: ?[id number] ? : ?1940 ? Procedure Date: ? June 24, 2020 ? Case #: ? [id number] ? Room: ? 6 ? Case Physician: ? Esau Valentin M.D. ?Start: ?12:10 ? Admission: ??06/24/2020 ? Referring Physician: ??Reshma Baig M.D. ? 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 The CSHA clinical frailty ?scale is 5: Mildly Frail. [...] Comments: ?Valvuloplasty Balloon: 18mmx4.5cm True Dilitation Balloon, Lot#[id number]. ?2nd Balloon 20mmx4.5cm True Dilitation Balloon ?Lot#[id number]. ?Ultrasound and fluoroscopy used to select vascular [...] ?heart catheterization, vascular ultrasound, temporary pacemaker in laboratory helper ?and transthoracic echo . ? Esau J Coylewright, ? M.D. ? Electronically Signed by: Esau Valentin M.D. ? Report Finalized: 06/24/2020 ??14:42 ? Procedure Note Esau Valentin MD - 06/24/2020 [facility] Cardiac Catheterization/Intervention Report Patient Name: SHANNAN THOMAS Procedure Date: 06/24/2020 A #: [id number] Primary Physician: Esau Valentin Case #: [id number] File Name: [id number] Catheterization Order Number: [id number] [facility] FinalReport [place], [place] Patient Name: SHANNAN THOMAS ID#:[id number] :1940 Procedure Date: June 24, 2020 Case #: [id number] Room: 6 Case Physician: Esau Valentin M.D. Start: 12:10 Admission:06/24/2020 Referring Physician: Reshma Baig M.D. Procedures: * Left Heart Catheterization * Aortic Valvuloplasty * Temporary Pacemaker Insertion In Precast Concrete Ironworker * Transthoracic Echo During Cath * Vascular [...] was designated as ASA Class IV. The [facility] clinicalfrailty scale is 5: Mildly Frail. Diagnostic [...] procedures. Comments: Valvuloplasty Balloon: 18mmx4.5cm True Dilitation Balloon,Lot#[id number]. 2nd Balloon 20mmx4.5cm True Dilitation Balloon Lot#[id number]. Ultrasound and fluoroscopy used to select vascular [...] POC Glucose 105 65 - 199 mg/dL [facility] Comment: Supplemental ranges: <140 mg/dL before meals <180 mg/dL all other times of the day Blood specimen (specimen) 06/24/2020 12:53 PM EDT 06/24/2020 12:53 PM EDT Esau Valentin MD POINT OF CARE MISTY T ORDERABLES Performing Organization Address City/[facility]/ZIP Co de Phone Number [facility] [place] [address] * POCT Glucose (06/24/2020 9:18 AM EDT) POC Glucose 122 65 - 199 mg/dL [facility] Comment: Supplemental ranges: <140 mg/dL before meals <180 mg/dL all other times of the day Blood specimen (specimen) 06/24/2020 9:18 AM EDT 06/24/2020 9:18 AM EDT Esau Valentin MD POINT OF CARE MISTY T ORDERABLES Performing Organization Address [facility] Co de Phone Number [facility] [place] [address] * EKG 12 Lead (06/24/2020 9:15 AM EDT) Pathologist [facility] Ventricular rate 64 BPM MUSE SYSTEM Atrial Rate 64 BPM MUSE SYSTEM P-R Interval 126 ms MUSE SYSTEM QRS Duration 126 ms MUSE SYSTEM Q-T Interval 472 ms MUSE SYSTEM QTC Calculated (Bezet) 486 ms MUSE SYSTEM Calculated P [place] 6 degrees MUSE SYSTEM Calculated R [place] 17 degrees MUSE SYSTEM Calculated T [place] -20 degrees MUSE SYSTEM INTERPRETATION Normal sinus rhythm Right bundle branch block Abnormal ECG When compared with ECG of 30-APR-2020 08:01, No significant change was found Confirmed by MD HUI, SABI ([id number]) on 06/24/2020 12:24:07 PM MUSE SYSTEM 06/24/2020 9:15 AM EDT 06/24/2020 12:24 PM EDT Esau Valentin MD ECG ORDERABLES Performing Organization Address City/[facility] Co de Phone Number MUSE SYSTEM * Differential, Automated (06/24/2020 8:40 AM EDT) Neutrophils % 56.2 % [facility] Neutr Abs (ANC) 3.72 1.70 - 6.10 x10(3)/[facility] Lymphocytes % 28.4 % [facility] Lymphocytes Abs 1.9 0.9 - 3.2 x10(3)/[facility] Monocytes % 10.1 % [facility] Monocyte Abs 0.7 0.3 - 0.9 x10(3)/[facility] Eosinophils % 3.9 % [facility] Eosinophils Abs 0.3 0.0 - 0.4 x10(3)/[facility] Basophils % 1.1 % [facility] Basophils Abs 0.1 0.0 - 0.1 x10(3)/[facility] Immature Gran % 0.30 % [facility] Comment: Immature granulocytes(IG's)percentage and absolute count will include metamyelocytes, myelocytes, and promyelocytes. Blood smears from CBCs yielding IG's will be scanned manually for concordance. If this scan disagrees with the automated IG or if promyelocytes are noted, a manual differential will be performed. Nanci Gran Abs 0.02 0.00 - 0.04 x10(3)/[facility] Blood specimen (specimen) 06/24/2020 8:40 AM EDT 06/24/2020 8:47 AM EDT Narrative Resulting Agency Comment Spec In Lab Esau Valentin MD HEMATOLOGY ORDERA BLES [facility] [place] [address] * (ABNORMAL) Hemogram (06/24/2020 8:40 AM EDT) WBC 6.6 4.0 - 9.5 x10(3)/[facility] RBC 3.46(L) 4.00 - 5.21 x10(6)/[facility] Hemoglobin 8.7(L) 11.7 - 15.5 gm/dL [facility] Hematocrit 29.0(L) 35.7 - 45.8 % [facility] MCV 83.8 82.6 - 94.4 [facility] MCH 25.1(L) 27.1 - 32.0 pg [facility] MCHC 30.0(L) 31.7 - 35.0 gm/dL [facility] Platelets 257 145 - 357 x10(3)/[facility] RDWSD 42.8 37.0 - 46.0 [facility] RDWCV 14.0 11.5 - 14.1 % [facility] MPV 10.2 7.6 - 12.9 [facility] nRBC % Auto 0.0 % [facility] nRBC Abs Auto 0.000 0.000 - 0.000 x10(3)/[facility] Blood specimen (specimen) 06/24/2020 8:40 AM EDT 06/24/2020 8:47 AM EDT Narrative Resulting Agency Comment Spec In Lab Esau Valentin MD HEMATOLOGY ORDERA BLES [facility] [place] [address] * Basic Metabolic Panel (non-fasting) (06/24/2020 8:40 AM EDT) Glucose Lvl 128 65 - 199 mg/dL [facility] Comment:Diabetes: >=200 mg/d L plus symptoms BUN 10 8 - 18 mg/dL [facility] Creatinine 0.83 0.70 - 1.20 mg/dL [facility] Sodium 137 135 - 145 mmol/L [facility] Potassium 3.6 3.5 - 5.0 mmol/L [facility] Comment: Please note: ??Patients with WBC >100,000 may have falsely elevated Potassium levels. ??For accurate Potassium quantification in these patients send serum separator tube (gold top) for subsequent determinations. ??Contact the Clinical Chemistry Laboratory if there are any questions. Chloride 102 98 - 107 mmol/L [facility] CO2 24 22 - 31 mmol/L [facility] Anion Gap 11 5 - 15 mmol/L [facility] Calcium 8.9 8.5 - 10.5 mg/dL [facility] Estimated GFR 67 >=60 mL/min/1. 73 m?? [facility] Comment: The eGFR was calculated using the CKD-EPI equation. As with all creatinine based estimates of kidney function, eGFR values calculated with the CKD-EPI equation are not accurate in patients with acute kidney failure, extremes of body mass or the acutely ill. http://[employer]/[facility] eGFR 78 >=60 mL/min/1. 73 m?? [facility] Comment: The eGFR was calculated using the CKD-EPI equation. As with all creatinine based estimates of kidney function, eGFR values calculated with the CKD-EPI equation are not accurate in patients with acute kidney failure, extremes of body mass or the acutely ill. http://[employer]/[facility] Blood specimen (specimen) 06/24/2020 8:40 AM EDT 06/24/2020 8:47 AM EDT Narrative Resulting Agency Comment Spec In Lab Esau Valentin MD CHEMISTRY ORDERAB LES [facility] [place] [address] documented in this encounter Visit Diagnoses Diagnosis [...] on Sun06/24/20 at 2100, Until Discontinued, Routine Given 06/25/2020 [...] 1 dose, On Sun06/24/20 at 1530, Routine Given 06/24/2020 4:36 PM EDT 300 mg clopidogreL (Plavix) tablet 75 mg 75 mg, Oral, DAILY, First dose on Sun06/25/20 at 0900, Until Discontinued, Routine Given 06/25/2020 8:2 2 AM EDT 75 mg dextrose 10% infusion 250 mL, at 1,000 mL/hr, Intravenous, EVERY 30 MIN PRN, Starting on Sun06/24/20 at 1609, Until Sun06/25/20 at 1818, For [...] active insulin. fentaNYL 50 mcg/mL multi-dose injection ONCE PRN, Starting on Sun06/24/20 at 1151, Until Sun06/24/20 at 1420, Intra-Operative (Intra-Procedure), Routine Given 06/24/2020 1:40 PM EDT 25 mcg Given 06/24/2020 12:17 PM EDT 12.5 mcg Given 06/24/2020 12:05 PM EDT 25 mcg glucagon (human recombinant) injection SolR 1 mg [...] grams., Routine heparin (porcine) 1,000 unit/mL injection ONCE PRN, Starting on Noreen 06/24/20 at 1233, Until Noreen 06/24/20 at 1420, Cath (Intra-Procedure), Routine Given 06/24/2020 12:58 PM EDT 3,000 Units Given 06/24/2020 12:37 PM EDT 2,000 Units Given 06/24/2020 12:20 PM EDT 6,000 Units insulin glargine VIAL injection 20 Units 20 [...] Given 06/25/2020 12:22 PM EDT 1 Units lidocaine (XYLOCAINE) 10 mg/mL (1 %) injection ONCE PRN, Starting on Noreen 06/24/20 at 1157, Until Sun06/24/20 at 1420, Cath (Intra-Procedure), Routine Given 06/24/2020 11:57 AM EDT 10 mLs losartan (Cozaar) tablet 25 mg 25 mg, [...] Given 06/25/2020 12:14 AM EDT 50 mg midazolam (PF) (VERSED) multi-dose injection ONCE PRN, Starting on Noreen 06/24/20 at 1151, Until Sun06/24/20 at 1420, Cath (Intra-Procedure), Routine Given 06/24/2020 1:46 PM EDT 1 mg Given 06/24/2020 12:05 PM EDT 1 mg Given 06/24/2020 11:51 AM EDT 1 mg NORepinephrine 16 mcg/mL (standard ADULT and Pedi greater than 20 kg) infusion CONTINUOUS PRN, Starting on Noreen 06/24/20 at 1250, Until Noreen 06/24/20 at 1420, Cath (Intra-Procedure), Routine New Bag 06/24/2020 12:50 PM EDT 2 mcg/min 7.5 mL/hr pantoprazole EC (Protonix) tablet 40 mg 40 [...] Given 06/25/2020 8:22 AM EDT 40 mEq protamine injection ONCE PRN, Starting on Noreen 06/24/20 at 1349, Until Noreen 06/24/20 at 1420, Cath (Intra-Procedure), Routine Given 06/24/2020 1:49 PM EDT 30 mg rosuvastatin (Crestor) tablet 20 mg 20 mg, Oral, EVERY EVENING, First dose on Noreen 06/24/20 at 1700, Until Discontinued, Routine Given 06/24/2020 4:34 PM EDT 20 mg sodium chloride 0.9 % (flush) flush ONCE PRN, Starting on Noreen 06/24/20 at 1249, Until Noreen 06/24/20 at 1420, Cath (Intra-Procedure), Routine Given 06/24/2020 12:49 PM EDT 250 mLs sodium chloride 0.9% infusion 200 mL/hr, Intravenous, [...] Noreen 06/24/20 at 2100, Until Discontinued, Routine 2100 (Given [...] on Sun06/25/20 at 0900, Until Discontinued, Routine 08 (Given - Provid er: Malika Champagne RN) insulin glargine VIAL injection 20 Units 20 Units, Subcutaneous, 2 TIMES DAILY, First dose on Sun06/24/20 at 2100, Until Discontinued, Routine 2103 (Given - Provider: Sandy Wynne RN) 08 (Given - Provider: Malika Champagne RN) insulin [...] Reason: See comment - Comment: not eating) 08 (Given - Provider: Malika Champagne RN)1222 (Given [...] for SBP <90 or HR <50, Routine 185 (Given - Provider: Diana Angel RN) 0014 (Given - Provider: Sandy Wynne, LYLA)0535 (Given - Provider: Sandy Wynne, LYLA)1221 (Given - Provider: Malika Champagne RN) pantoprazole EC (Protonix) tablet 40 mg 40 mg, Oral, 2 TIMES DAILY, First dose on Sun06/24/20 at 2100, Until Discontinued, DO NOT CRUSH OR OPEN, Routine 2100 (Given - Provider: Sandy Wynne, LYLA) 0822 (Given - Provider: Malika Champagne, LYLA) potassium chloride ER (K-Dur/Klor-Con) tablet 40 mEq (COMPLETED) 40 mEq, Oral, ONCE, 1 dose, On Sun06/25/20 at 0730, 20 mEq tablet may be dissolved in water for administration, Routine 08 (Given - Provid er: Malika Champagne, LYLA) rosuvastatin (Crestor) tablet 20 mg 20 mg, Oral, EVERY EVENING, First dose on Noreen 06/24/20 at 1700, Until Discontinued, Routine 1634 [...] Starting on Noreen 06/24/20 at 1151, Until Sun06/24/20 at 1420, Intra-Operative [...] Starting on Noreen 06/24/20 at 1233, Until Noreen 06/24/20 at 1420, Cath (Intra-Procedure), Routine 1220 (Given [...] Lynette Cotter RN)1205 (Given - Provider: Franklin Deras)1346 (Given - Provider: Martine Russo RN) NORepinephrine 16 mcg/mL (standard ADULT and Pedi [...] MEALS & AT BEDTIME, First occurrence on Sun06/24/20 at 1700, Until Specified, Consider choosing FOUR [...] Routine documented in this encounter Care Teams Child Care Development Specialist Relationship Specialty Start Date End Date Reshma Baig MD [address] [place] [address] PCP - General Family Medicine 11/08/18 06/23/21 documented as of this encounter
--- OUTSIDE RECORDS SUMMARY | 2024-03-17 14:22 | XMS_ITS | Encounter Summary ---
[place] [address] Care Team Providers Care Infant Caregiver Name Role Phone Regis Muller MD Primary Care Provider [phone] Reason for Visit * Reason Onset Date Comments Medication Refill 06/08/2020 Encounter Details Date Type Department Care Team (Late st Contact Info) Description 06/08/2020 Refill [place] [address] Sherrie Holbrook Social History Tobacco Use Types Packs/Day Years [...] documented as of this encounter Care Teams Infant Caregiver Relationship Specialty Start Date End Date Regis Muller MD [address] [place] [address] PCP - General Emergency Medicine 06/24/21 documented as of this encounter
--- OUTSIDE RECORDS SUMMARY | 2024-03-17 14:22 | XMS_ITS | Encounter Summary ---
Author Organization [facility] Address [facility] [place] [address] Care Team Providers Care Ve Teacher Name Role Phone Reshma Baig MD Primary Care Provider [phone] Reason for Visit * Reason Onset Date Comments Abdominal Pain 06/04/2020 Encounter Details Date Type Department Care Team ([facility] st Contact Info) Description 06/04/2020 [place] [address] Homa Ross APRN [facility] [place] [address] Abdominal Pain Social History Tobacco Use Types Packs/Day Years [...] encounter Miscellaneous Notes * Telephone Encounter - Homa Ross APRN - 06/04/2020 3:37 PM EDT We received a call from Ms. Moody's VN this afternoon reporting persistent pericatheter pain, 06/05. Ms. Moody is a 79 y.o.??female??with??IDDM2, HFpEF and NSTEMI on asa/plavix??(stent placed 04/21/20) who is status post??PCT placement 04/22/20 for acute cholecystitis (cholelithiasis) following her stenting. Patient was seen in IR 06/03 for routine tube check, which revealed a patent CD, but no contrast wasseen in CBD or duodenum. During contrast injection, patient developed severe RUQ pain, which has not abated, and has remained at through to today. Ms. Moody denies fever, chills, drainage around the tube, nausea or vomiting. She is eating and drinking as normal. There was blood in the PCT bag initially, but has cleared up and is now her normal brown/green. No change in the volume. The pain is constant, but worse with movement. She has been taking 1000mg of Tylenol every 4-6 hours with mild effect. I spoke with the VN who did not see erythema around the tube, and on exam the abdomen was soft. In light of any other worrisome s/s, I opted to prescribe Oxycodone (3 tabs) for what sounds like an acute inflammation after pressurizing the GB yesterday. I expect the symptoms to dimas daily. Additionally, I recommended ice to the area. I reviewed with the patient the s/s which would warrant a call to us. We will call her tomorrow for a progress report. documented in this encounter Plan of Treatment Not on file documented as of this encounter Visit Diagnoses Not on filedocumented in this encounter Care Teams Ve Teacher Relationship Specialty Start Date End Date Reshma Baig MD [address] [place] [address] PCP - General Family Medicine 11/08/18 06/23/21 documented as of this encounter
--- OUTSIDE RECORDS SUMMARY | 2024-03-17 14:22 | XMS_ITS | Encounter Summary ---
Author Organization [facility] Address [facility] [place] [address] Care Team Providers Care Furniture Upholsterer Name Role Phone Reshma Baig MD Primary Care Provider [phone] Reason for Visit * Reason Comments Follow-up Encounter Details Date Type Department Care Team (Latest Contact Info) Description 06/18/2020 2:00 PM EDT Office Visit General Surgery at [facility] [place] [address] Hong Rosenthal MD [facility] [place] [address] Calculus of gallbladder with acute cholecystitis without obstruction (Primary Dx) Social History Tobacco Use Types Packs/Day Years [...] Sign Reading Time Taken Comments Blood Pressure 152/62 06/18/2020 1:51 PM EDT Pulse 64 06/18/2020 1:51 PM EDT Temperature - - Respiratory Rate 16 06/18/2020 1:51 PM EDT Oxygen Saturation 100% 06/18/2020 1:51 PM EDT Inhaled Oxygen Concentration - - Weight 81.6 kg (180 lb) 06/18/2020 1:51 PM EDT Height - - Body Mass Index 32.92 06/16/2020 10:50 AM EDT documented in this encounter Progress Notes * Hong Rosenthal MD - 06/18/2020 2:00 PM EDT Patient: Shannan Moody : 1940 Date of service: 06/18/2020 PCP: Reshma Baig MD Referring provider: Reshma Baig Subjective: Shannan Moody is a 79 y.o. female who presents for routine follow up after her recent hospitalization for cholecystitis at [facility]. Briefly, she was transferred from [facility] to [facility] 04/19/2020 with acute calculous cholecystitis. Given her cardiac comorbidities, cardiology was consulted and she underwent cardiac catheterization 04/21. She was found to have two vessel coronary disease affecting the LAD and LCA, with one synergy stent inserted into an osteal RCA lesion, as well as elevated LVEDP of 21. The aortic valve gradient was 22, and no balloon valvuloplasty was performed. Percutaneous cholecystostomy tube was placed 04/22. A percutaneous drain was placed into a hepatic fluid collection 04/28. Her course was prolonged by septic and/or cardiogenic shock, Afib with RVR, aeHFpEF, NSTEMI, and UGIB secondary to esophagitis and ant icoagulation. She was discharged to home on 05/08. She was maintained on dual antiplatelet therapy due to the recent stent. Per cardiology, she shouldcontinue aspirin for 1 year and Plavix for 6 months. After the first 6 weeks, the Plavix could be held for cholecystectomy. Further anticoagulation with apixaban was deferred due to the GIB. ?? IR drain check and tube cholangiogram 05/19: Findings: ?? The perihepatic / sub-diaphragmatic collection had resolved. The catheter was removed. ?? The cholecystostomy catheter is patent within the gallbladder. Contrast filled the cystic duct and common bile duct with free flow into the duodenum. There are intraluminal filling defects in the gallbladder consistent with cholelithiasis. The catheter was left in place. Impression: 1. Resolved ame-hepatic / sub-diaphragmatic collection; drainage catheter removed. 2. Cholecystostomy catheter in appropriate positioning. Cholelithiasis without choledocholithiasis.Patent cystic and common bile ducts. Drainage catheter left in placed; ideally would not be removeduntil after 6-weeks from placement. IR tube cholangiogram 06/03: Findings: ?? Cholecystostomy catheter within gallbladder lumen. ?? Patent cystic duct. No opacification of the common bile duct. No passage of contrast into the duodenum. Patient had significant right upper quadrant pain with distention of the gallbladder. ?? Exchange for new 10.2-Fr catheter, pigtail formed within the gallbladder lumen. Impression: 1. No opacification of the common bile duct nor duodenum despite opacification of the cystic duct. 2. Successful cholecystostomy catheter exchange. Catheter left to gravity drainage. CT abd/pelvis 06/18: Radiology report pending No evidence of biliary/perihepatic fluid collections nor pathology. Perc david in good position. Cholecystolithiasis. Old L3 compression fx. R colon thickening of unclear significance vs inadequate distention. Today she reports she is continuing to have lower thoracic pain and loose stools. She took her stool specimen to [facility] this week but has yet to hear back. Her stool is loose but trending toward normal. Reports her appetite is slightly improved. She denies infectious ROS. She is eating yogurt. She has an appointment with Dr Valentin/interventional cardiology today. Objective: This is an age appropriate, danish speaking, obese white female in [facility]. She is able to converse easily and appropriately while breathing RA. Gait around the office is observed to be wnl. Her daughter is with her. Patient Vitals for the past 24 hrs: Pulse Resp BP SpO2 06/18/20 1351 64 16 152/62 100 % Body mass index is 32.92 kg/m??. Catheter site is without signs of infection or bleeding. The catheter was assessed from skin level to bag and is functioning properly. Thin dark brown- green bile is present in the bag. No particulatematter. Assessment: - Acute calculous cholecystitis 03/2020 - CAD - IDDM - Obesity - s/p cardiac catheterization with RCA stent 04/21 - s/p percutaneous cholecystostomy tube 04/22 - s/p percutaneous drainage of a hepatic fluid collection 04/28 (removed 05/19) - Afib with RVR - HFpEF - NSTEMI 03/2020 - UGIB 03/2020, secondary to esophagitis and anticoagulation - Pedal edema Discussion/Plan: - Today she is doing well and appears healthier than at our prior visit. Her appetite is slowly improving and her stool is less loose. Stool studies at [facility] are pending. Her back pain persists and she has developed some pedal edema since I saw her last. The CT today is without signs of complication. The final read is pending. I suspect the pain is referred from the presence of the percutaneous cholecystostomy tube. - She continues on DAPT due to the recent stent. The DC summary indicates she should continue aspirin for 1 year and Plavix for 6 months. After the first 6 weeks, the Plavix could be held for cholecystectomy. Further anticoagulation with apixaban was deferred due to the GIB. ?? - She has an appointment in our system with Dr Valentin today. From my standpoint, I am looking for confirmation regarding the DAPT management, specifically when to hold Plavix for cholecystectomyand is there a maximum amount of time that ideally would not be exceeded prior to restarting? The madsen rgery would be performed without ASA interruption. - We discussed her options regarding the percutaneous cholecystostomy tube at our last visit. She has decided to plan for cholecystectomy so no further IR imaging will be scheduled. The timing will depend on cardiology clearance and she would continue with percutaneous drainage until then. - Laparoscopic cholecystectomy was discussed. - Follow up pending cardiology recommendations. Thank you for including me in the care of your patient. Please do not hestitate to contact us with any further questions or concerns you may have. Hong Rosenthal MD. 06/18/2020 2:40 PM office [phone] fax [phone] documented in this encounter Plan of Treatment Not on file documented as of this encounter Visit Diagnoses Diagnosis Calculus of gallbladder with acute cholecystitis without obstruction- Primary Calculus of gallbladder with acute cholecystitis, without mention of obstruction documented in this encounter Care Teams Furniture Upholsterer Relationship Specialty Start Date End Date Reshma Baig MD [address] [place] [address] PCP - General Family Medicine 11/08/18 06/23/21 documented as of this encounter
--- OUTSIDE RECORDS SUMMARY | 2024-03-17 14:22 | XMS_ITS | Encounter Summary ---
Author Organization [facility] Address [facility] [place] [address] Care Team Providers Care Air Quality Engineer Name Role Phone Reshma Baig MD Primary Care Provider [phone] Encounter Details Date Type Department Care Team (Late st Contact Info) Description 06/04/2020 Orders [place] [address] Homa Ross APRN [facility] DIAGNOSTIC [place] [address] Social History Tobacco Use Types Packs/Day Years [...] on filedocumented in this encounter Care Teams Air Quality Engineer Relationship Specialty Start Date End Date Reshma Baig MD [address] [place] [address] PCP - General Family Medicine 11/08/18 06/23/21 documented as of this encounter
--- OUTSIDE RECORDS SUMMARY | 2024-03-17 14:22 | XMS_ITS | Encounter Summary ---
Author Organization [facility] Address [facility] [place] [address] Care Team Providers Care Coal Handler Name Role Phone Reshma Baig MD Primary Care Provider [phone] Reason for Referral * Diagnostic Test (Routine) - Closed Specialty Diagnoses / Procedures Referred By Malini carlson Referred To Contact Radiology Diagnoses Calculus of gallbladder with acute cholecystitis without obstruction Cholecystostomy tube dysfunction, subsequent encounter Procedures CT Abdomen & Pelvis w Contrast Hong Rosenthal MD [facility] [place] [address] [facility] [place] [address] Referral ID Status Reason Start Date Expiration Date V isits Requested Visits Authorized [id number] Closed Specialty Service Requested 06/16/2020 12/12/2020 1 1 Encounter Details Date Type Department Care Team (Late st Contact Info) Description 06/15/2020 Orders [place] [address] Hong Rosenthal [place] [id number] Calculus of gallbladder with acute cholecystitis without obstruction; Cholecystostomy tube dysfunction, subsequent encounter Social History Tobacco Use Types Packs/Day [...] documented as of this encounter Results * CT Abdomen & [...] report, please contact the number below. ? Narrative 06/18/2020 3:03 PM EDT EXAMINATION: CT [...] this report, please contact the number below. Hong Rosenthal MD IMG CT ORDERABLES documented in this encounter Visit Diagnoses Diagnosis Calculus of gallbladder with acute cholecystitis without obstruction Calculus of gallbladder with acute cholecystitis, without mention of obstruction Cholecystostomy tube dysfunction, subsequent encounter Calculus of gallbladder with acute cholecystitis without obstruction Calculus of gallbladder with acute cholecystitis, without mention of obstruction Cholecystostomy tube dysfunction, subsequent encounter documented in this encounter Care Teams Coal Handler Relationship Specialty Start Date End Date Reshma Baig MD [address] [place] [address] PCP - General Family Medicine 11/08/18 06/23/21 documented as of this encounter
--- OUTSIDE RECORDS SUMMARY | 2024-03-17 14:22 | XMS_ITS | Encounter Summary ---
Author [facility] [place] [address] Care Team Providers Care Food Chemist Name Role Phone Reshma Baig MD Primary Care Provider [phone] Encounter Details Date Type Department Care Team (Late st Contact Info) Description 07/12/2020 Telephone [place] [address] Sandy Carrillo RN Social History Tobacco Use Types Packs/Day [...] encounter Miscellaneous Notes * Telephone Encounter - Sandy Carrillo RN - 07/12/2020 9:58 AM EST Patient is scheduled to have a laparoscopic cholecystectomy with possible intra- operative cholangiogram on 07/15/2020. He would like her to hold her Plavix for 5 days before surgery but continue her aspirin, so her last dose will be on 07/09/2020. I called the patient and she reports that she has been holding the plavix since 07/10/2020. documented in this encounter Plan of Treatment Not on file documented as of this encounter Visit Diagnoses Not on filedocumented in this encounter Care Teams Food Chemist Relationship Specialty Start Date End Date Reshma Baig MD [address] [place] [address] PCP - General Family Medicine 11/08/18 06/23/21 documented as of this encounter
--- OUTSIDE RECORDS SUMMARY | 2024-03-17 14:22 | XMS_ITS | Encounter Summary ---
[place] [address] Care Team Providers Care Business Development Executive Name Role Phone Reshma Baig MD Primary Care Provider [phone] Encounter Details Date Type Department Care Team (Late st Contact Info) Description 06/21/2020 [place] [address] Kia Bowers, RN Social History Tobacco Use Types Packs/Day [...] on filedocumented in this encounter Care Teams Business Development Executive Relationship Specialty Start Date End Date Reshma Baig MD [address] [place] [address] PCP - General Family Medicine 11/08/18 06/23/21 documented as of this encounter
--- OUTSIDE RECORDS SUMMARY | 2024-03-17 14:22 | XMS_ITS | Encounter Summary ---
Author Organization [facility] Address [facility] [place] [address] Care Team Providers Care Adult Services Librarian Name Role Phone Reshma Baig MD Primary Care Provider [phone] Encounter Details Date Type Department Care Team (Late st Contact Info) Description 06/21/2020 Orders Only Cardiology [facility] [place] [address] Maria L Green PA [facility] [place] [address] [place] [address] Aortic valve stenosis, etiology of cardiac valve disease unspecified Social History Tobacco Use Types Packs/Day Years [...] unspecified documented in this encounter Care Teams Adult Services Librarian Relationship Specialty Start Date End Date Reshma Baig MD [address] [place] [address] PCP - General Family Medicine 11/08/18 06/23/21 documented as of this encounter
--- OUTSIDE RECORDS SUMMARY | 2024-03-17 14:22 | XMS_ITS | Encounter Summary ---
Author Organization [facility] [place] [address] Care Team Providers Care Used Equipment Sales Representative Name Role Phone Reshma Baig MD Primary Care Provider [phone] Encounter Details Date Type Department Care Team (Late st Contact Info) Description 06/10/2020 Telephone [place] [address] Tg Jimenez, RN Social History Tobacco Use Types Packs/Day [...] encounter Miscellaneous Notes * Telephone Encounter - Tg Jimenez, RN - 06/10/2020 11:18 AM EDT I received a voice mail message from Alejandra who notes their office received a call from Shannan because she can not hold anything down. ~~~~~~~~~~~~~~~~~~~~~~~~~~~~~~~~~~~~~~~ Shannan is 79 year old female with a Percutaneous cholecystostomy tube 10.2 mongolian catheter with a pig tail formed in the gall bladder lumen. (last exchange 06/03) IR tube cholangiogram 06/03: Findings: ?? Cholecystostomy catheter within gallbladder lumen. ? Patent cystic duct. ??No opacification of the common bile duct. ??No passage of contrast into the duodenum. ??Patient had significant right upper quadrant pain with distention of the gallbladder. ? Exchange for new 10.2-Fr catheter, pigtail formed within the gallbladder lumen. Impression: 1. No opacification of the common bile duct nor duodenum despite opacification of the cystic duct. ?? 2. Successful cholecystostomy catheter exchange.??Catheter left to gravity drainage. ?? She was transferred to [facility] with acute gallbladder symptoms back in March however because of her cardiac condition and dual antiplatelet therapy the percutaneous cholecystostomy tube was place. She had a complicated hospital course and was then discharged on 05/08/2020. ~~~~~~~~~~~~~~~~~~~~~~~~~~~ I called Alejandra back. She gives the following report on Shannan Nausea, vomitting and diarrhea since 329. She has gone through 4 pairs of undergarments and is now wearing disposable briefs, Alejandra note bhavinhas had multiple episodes of diarrhea and emesis but does not have specific numbers. She can not hold anything down- when she tries to drink water it comes right back up. The last food intake was attempted around noon yesterday- in general her food intake has been poor. Shannan reported to Alejandra that she has had an increase in right sided mid back pain. Alejandra denies any changes at the site of the Cholecystostomy tube exits the skin, there is no redness, warmth or swelling. She feels it has worsened. She has been taking acetaminophen every 4-6 hours. She had chills last night and this morning- she feels her temperature has increased. Her vital signs this morning were a temperature of 99, heart rate of 74, oxygen saturation rate of 95%, and a blood pressure of 127/52. Shannan denied being orthostatic at the time of Alejandra's visit this morning. Alejandra notes she has been working on an 8 ounce bottle of water since last evening there is only 2-3 ounces out of the bottle. Shannan lives near [place]. I have recommend Shannan call her local EMS and seek care at her local facility. Alejandra will call Shannan to let her know- she said she believes that Shannan will be relieved as itwas considered but Shannan did not want to do anything until Alejandra had contacted [facility]. Shannan was seen by Dr. Rosenthal on June [id number]. Below is a small portion of his note. Discussion/Plan: - Today she reports she was doing very well until the IR study this morning. As reported in the IR note, she experienced RUQ pain during the injection. She has continued to feel better since the procedure was completed. She reports no issues prior to the injection and was feeling quite well at home. She denies infectious ROS. She has completed her Augmentin course. She reported continued improvement since the injection, the catheter is draining well without bleeding, and she was not ill appearing. We discussed concerning signs and symptoms from a bleeding and infection standpoint. - She continues on DAPT due to the recent stent. The DC summary indicates she should continue aspirin for 1 year and Plavix for 6 months. After the first 6 weeks, the Plavix could be held for cholecystectomy. Further anticoagulation with apixaban was deferred due to the GIB. ? - The DC summary references an outpatient cardiology follow-up with Dr. Galindo in [facility] on 05/18 but she reports she has not seen a material liaison. She has an appointment in our system with Dr Valentin on 06/18. ?? - We discussed her surgical options going forward. If the cystic duct is patent, the percutaneous cholecystostomy tube could be removed and we would monitor for recurrence. This carries the benefit of avoiding surgery but the risk of recurrent symptoms. The alternative would be proceeding with cholecystectomy to avoid the recurrence risk. If the cystic duct does not become patent, I would recommend cholecystectomy. The tube would be removed during surgery. The timing would depend on cardiology clearance and she would continue with percutaneous drainage until then. ?? - Laparoscopic cholecystectomy was briefly discussed. - Follow up with me in early June (with repeat tube cholangiogram the same day). We will discuss Dr Valentin's recommendations, the IR findings, and how they relate to interval cholecystectomy. ?? Thank you for including me in the care of your patient. Please do not hestitate to contact us with any further questions or concerns you may have. ?? Hong Rosenthal MD. 06/03/2020 1:57 PM office [phone] fax [phone] ??3:37 PM She called in with pain and spoke with Homa Ross who on 06/04/2020 with worsening pain. , OBI Luther Nurse Practitioner Interventional Radiology Telephone Encounter Signed Encounter Date: 06/04/2020 We received a call from Ms. Moody's VN this afternoon reporting persistent pericatheter pain, 06/05. ?? Ms. Moody is a 79 y.o.??female??with??IDDM2, HFpEF and NSTEMI on asa/plavix??(stent placed 04/21/20) who is status post??PCT placement 04/22/20 for acute cholecystitis (cholelithiasis) following her stenting. ?? Patient was seen in IR 06/03 for routine tube check, which revealed a patent CD, but no contrast wasseen in CBD or duodenum. During contrast injection, patient developed severe RUQ pain, which has not abated, and has remained at through to today. ?? Ms. Moody denies fever, chills, drainage around the tube, nausea or vomiting. She is eating and drinking as normal. There was blood in the PCT bag initially, but has cleared up and is now her normal brown/green. No change in the volume. The pain is constant, but worse with movement. She has been taking 1000mg of Tylenol every 4-6 hours with mild effect. ?? I spoke with the VN who did not see erythema around the tube, and on exam the abdomen was soft. ?? In light of any other worrisome s/s, I opted to prescribe Oxycodone (3 tabs) for what sounds like an acute inflammation after pressurizing the GB yesterday. I expect the symptoms to dimas daily. Additionally, I recommended ice to the area. ?? I reviewed with the patient the s/s which would warrant a call to us. ?? We will call her tomorrow for a progress report. ?3:51 PM documented in this encounter Plan of Treatment Not on file documented as of this encounter Visit Diagnoses Not on filedocumented in this encounter Care Teams Used Equipment Sales Representative Relationship Specialty Start Date End Date Reshma Baig MD [address] [place] [address] PCP - General Family Medicine 11/08/18 06/23/21 documented as of this encounter
--- OUTSIDE RECORDS SUMMARY | 2024-03-17 14:22 | XMS_ITS | Encounter Summary ---
Author Organization [facility] [place] [address] Care Team Providers Care Career Guidance Counselor Name Role Phone Reshma Baig MD Primary Care Provider [phone] Encounter Details Date Type Department Care Team (Late st Contact Info) Description 07/02/2020 Telephone [place] [address] Lisa Strickland RN Social History Tobacco Use Types Packs/Day [...] encounter Miscellaneous Notes * Telephone Encounter - Lisa Strickland RN - 07/02/2020 2:17 PM EST Shannan calls in today to update us on her current status. She wanted me to let Dr. Rosenthal know that she had her heart valve surgery last week and she is doing very well. She states that her Anna tube is drianing clear fluid that is sometimes blood tinged. She is wondering when she can be cleared to have her gallbladder out. I told Shannan I would forward this note to Dr. Rosenthal to update him on how her surgery went and develop a timeline for surgery and call her back. She agrees to this plan. Per Dr. Rosenthal last office note on 06/18.20: Discussion/Plan: - Today she is doing well and appears healthier than at our prior visit. Her appetite is slowly improving and her stool is less loose. Stool studies at [facility] are pending. Her back pain [...] deferred due to the GIB. ? - She has an appointment in our system with Dr Valentin today. From my standpoint, I am looking for confirmation regarding the DAPT management, specifically when to hold Plavix for cholecystectomyand is there a maximum amount of time that ideally would not be exceeded prior to restarting? The madsen rgery would be performed without ASA interruption. ?? - We discussed her options regarding the percutaneous cholecystostomy tube at our last visit. She has decided to plan for cholecystectomy so no further IR imaging will be scheduled. The timing will depend on cardiology clearance and she would continue with percutaneous drainage until then. ?? - Laparoscopic cholecystectomy was discussed. ?? - Follow up pending cardiology recommendations. ? Thank you for including me in the care of your patient. Please do not hestitate to contact us with any further questions or concerns you may have. documented in this encounter Plan of Treatment Not on file documented as of this encounter Visit Diagnoses Not on filedocumented in this encounter Care Teams Career Guidance Counselor Relationship Specialty Start Date End Date Reshma Baig MD [address] [place] [address] PCP - General Family Medicine 11/08/18 06/23/21 documented as of this encounter
--- OUTSIDE RECORDS SUMMARY | 2024-03-17 14:22 | XMS_ITS | Encounter Summary ---
Author Organization [facility] [place] [address] Care Team Providers Care Granite Polisher Name Role Phone Reshma Baig MD Primary Care Provider [phone] Encounter Details Date Type Department Care Team (Late st Contact Info) Description 06/21/2020 Telephone Cardiology at [address] [id number] Ryan Marques, RN Social History Tobacco Use [...] Miscellaneous Notes * Telephone Encounter - Ryan Marques RN - 06/21/2020 10:56 AM EDT Addendum: Appreciate return call from Dr. Valentin. Confirms direct contact with Ms. Moody; relays preference for BAV after discussion. Note routed to [facility] for scheduling purposes. Dilan Marques RNoffice manager Team Nurse [facility] Ambulatory Cardiology * Telephone Encounter - Ryan Marques RN - 06/21/2020 10:22 AM EDT Call placed to Ms. Moody in follow up. Very pleasant contact. Discussion ensued regarding optionsfor BAV vs TAVR. Patient remains undecided at present - voiced concerns for needed cholecystectomy.Agrees to await further direction - or alternatively - further contact and discussion with Dr. Valentin. Separate call to Dr. Valentin placed to relay patient concerns. (Appreciate her direct cell number as Dr. Valentin is away today). Message left on voice identified cell messaging machine). Ms. Moody commits to remaining available at her home number of [phone]). Dilan Marques, office manager Team Nurse [facility] Ambulatory Cardiology documented in this encounter Plan of Treatment Not on file documented as of this encounter Visit Diagnoses Not on filedocumented in this encounter Care Teams Granite Polisher Relationship Specialty Start Date End Date Reshma Baig MD [address] [place] [address] PCP - General Family Medicine 11/08/18 06/23/21 documented as of this encounter
--- OUTSIDE RECORDS SUMMARY | 2024-03-17 14:22 | XMS_ITS | Encounter Summary ---
[place] [address] Care Team Providers Care Staging Technician Name Role Phone Reshma Baig MD Primary Care Provider [phone] Encounter Details Date Type Department Care Team (Late st Contact Info) Description 06/04/2020 Telephone [place] [phone] Summer Trivedi, RN Social History Tobacco Use Types Packs/Day [...] encounter Miscellaneous Notes * Telephone Encounter - Summer Trivedi RN - 06/04/2020 2:09 PM EDTSummary: Pain from IR Tube Call from RN at [facility]. Patient is reporting pain from IR drain since her appointment yesterday. No other issues. She reports that the pain was tolerable until she got home last night and then it was 10/10. She is only comfortable if she stays completely still. RN will call IR directly to see what they want to do. documented in this encounter Plan of Treatment Not on file documented as of this encounter Visit Diagnoses Not on filedocumented in this encounter Care Teams Staging Technician Relationship Specialty Start Date End Date Reshma Baig MD [address] [place] [address] PCP - General Family Medicine 11/08/18 06/23/21 documented as of this encounter
--- OUTSIDE RECORDS SUMMARY | 2024-03-17 14:22 | XMS_ITS | Encounter Summary ---
[facility] [place] [address] Care Team Providers Care Compensation And Hris Analyst Name Role Phone Reshma Baig MD Primary Care Provider [phone] Reason for Visit * Auth/Cert Specialty Diagnoses [...] Expiration Date Visits Re quested Visits Authorized [id number] 1 1 Encounter Details Date Type Department Care Team (Latest Contact Info) Description 06/22/2020 10:05 PM EDT - 06/22/2020 11:59 PM EDT [place] [address] COVID-19 ruled out Discharge Disposition: Home Social History Tobacco Use [...] mouth nightly. 30 tablet 12 06/25/2020 09/18/2020 furosemide (Lasix) 20 mg Tablet Take 1 [...] Procedure Name Priority Date/Time Associated Diagnosis Comments COVID-19 PCR Routine 06/22/2020 9:40 AM EDT documented in this encounter Results * COVID-19 PCR (06/22/2020 9:40 AM EDT) SARS-CoV-2 RNA Not Detected Not Detected [facility] Comment: This result should be interpreted in combination with the clinical observations, patient history and epidemiological information in making a final diagnosis. For testing of asymptomatic individuals, assay performance characteristics and clinical utility have not been evaluated. Testing for SARS-CoV-2 (Severe acute respiratory syndrome coronavirus 2, formerly known as 2019 novel coronavirus or 2019-nCoV) to aid in the diagnosis of COVID-19 is performed using the [employer] RealTime SARS-CoV-2 Assay as authorized by the FDA Emergency Use Authorization (EUA). This EUA assay is intended for In-vitro Diagnostic (IVD) use with respiratory specimens such as nasopharyngeal swabs collected from individuals during the acute phase of infection. This assay is performed based on the instructions for use provided by [employer] and additional guidance provided by CDC and FDA. Testing is performed in the [facility] within the Department of Pathology and Laboratory Medicine at [facility], certified under the Clinical Laboratory Improvement Amendments of 1988 (CLIA), 42 U.S.C. 263a, to perform high complexity tests. Assay performance has been verified according to clinical laboratory regulatory requirements for use with specimens collected from individuals suspected of COVID-19. Test results are provided above. A result of ? Not Detected? indicates that the viral RNA target is not present above the limit of detection, but does not preclude SARS-CoV-2 infection. False negative results may occur if a specimen is improperly collected, transported or handled; if amplification inhibitors are present; or if inadequate numbers of viral particles are present in the specimen. When a diagnostic test is negative, the possibility of a false negative result should be considered in the context of a patient? s recent exposures and the presence of clinical signs and symptoms consistent with COVID-19. A result of ? Detected? indicates that RNA from SARS-CoV-2 was detected and the patient is infected. As required or requested by public health authorities, positive specimens may be sent for additional testing. Positive and negative predictive values for this test are highly dependent on disease prevalence. A result of ? Invalid? indicates that neither the viral RNA targets nor the internal control target was detected. An invalid result suggests the presence of inhibitors. Recollection and re-testing is recommended in the case of an invalid result. CDC COVID-19 criteria for testing on human specimens and clinical management guidance information are available at the CDC Coronavirus Disease 2019 (COVID-19) webpage under ? Information for Healthcare Professionals? (https://www.cdc.gov/coronavirus/2019-ncov/hcp/index.html) Additional information about this and other EUA tests can be found in provider and patient fact sheets at the following FDA website: https://www.fda.gov/medical-devices/bpipiyoobvw-sayvuxj-2300-taxgb-27-bnwelqxqc- use-a goqoaeolzukrk-rgflxvv-jgzypnq/mirln-oflzupaaknr-nhvx SARS-Cov-2 RNA Source Nasal [facility] Specimen from nose (specimen) Other / Unknown 06/22/2020 9:40 AM EDT 06/22/2020 11:42 PM EDT Narrative Resulting Agency Comment Spec In Lab Sera Valentin MD MICROBIOLOGY - NERAL ORDERABLES Performing Organization Address City/State/[facility] Co de Phone Number [facility] [place] [address] documented in this encounter Visit Diagnoses Diagnosis COVID-19 ruled out documented in this encounter Care Teams Compensation And Hris Analyst Relationship Specialty Start Date End Date Reshma Baig MD [address] [place] [address] PCP - General Family Medicine 11/08/18 06/23/21 documented as of this encounter
--- OUTSIDE RECORDS SUMMARY | 2024-03-17 14:22 | XMS_ITS | Encounter Summary ---
Author Organization [facility] Address [facility] [place] [address] Care Team Providers Care Factory Helper Name Role Phone Reshma Baig MD Primary Care Provider [phone] Reason for Visit * Reason Comments Establish Care * Consultation (Routine) - Closed Specialty Diagnoses / Procedures Referred By Malini carlson Referred To Contact General Surgery Diagnoses Cholecystitis Julianna Hendrix MD [facility] [place] [address] [facility] [place] [address] [place] [address] Referral ID Status Reason Start Date Expiration Date V isits Requested Visits Authorized [id number] Closed Consult, Test & Treat 04/26/2020 04/26/2021 1 1 Encounter Details Date Type Department Care Team (Latest Contact Info) Description 06/03/2020 2:00 PM EDT Office [place] [address] Hong Rosenthal MD [place] [phone] Calculus of gallbladder with acute cholecystitis without obstruction (Primary Dx); CAD S/P percutaneous coronary angioplasty Social History Tobacco Use Types Packs/Day Years [...] Sign Reading Time Taken Comments Blood Pressure 145/50 06/03/2020 1:36 PM EDT Pulse 50 06/03/2020 1:36 PM EDT Temperature 36.7 ??C (98 ??F) 06/03/2020 1:36 PM EDT Respiratory Rate 18 06/03/2020 1:36 PM EDT Oxygen Saturation 99% 06/03/2020 1:36 PM EDT Inhaled Oxygen Concentration - - Weight 80.8 kg (178 lb 3.2 oz) 06/03/2020 1:36 P M EDT Height 157.5 cm (5' 2.01) 06/03/2020 1:36 PM ED T Body Mass Index 32.58 06/03/2020 1:36 PM EDT documented in this encounter Progress Notes * Hong Rosenthal MD - 06/03/2020 2:00 PM EDT Patient: Shannan Moody : 1940 Date of service: 06/03/2020 PCP: Reshma Baig MD Referring provider: Julianna Hendrix Subjective: Shannan Moody is a 79 y.o. female who presents for routine follow up after her recent hospitalization for cholecystitis at [facility]. Briefly, she was transferred [facility] to [facility] 04/19/2020 with acute calculous cholecystitis. Given her [...] was deferred due to the GIB. ?? She presents today to discuss interval cholecystectomy. IR drain check and tube cholangiogram 05/19: [...] catheter exchange. Catheter left to gravity drainage. Today she reports she was doing very well until the IR study. As reported by IR, she confirms significant RUQ pain during the injection. She has continued to feel better since the procedure was completed. She denies infectious ROS. She has completed her Augmentin course. She is eating yogurt. The DC summary references an outpatient cardiology follow-up with Dr. Galindo in [facility] on 05/18 but she reports she has not seen a circuit clerk. She has an appointment in our system with Dr Nagy 06/18. Objective: This is an age appropriate, chinese speaking, obese white female in [facility]. She is able to converse easily and appropriately while breathing RA. Gait around the office is observed to be wnl. Patient Vitals for the past 24 hrs: Temp Pulse Resp BP SpO2 06/03/20 1336 36.7 ??C (98 ??F) 50 18 145/50 99 % Body mass index is 32.58 kg/m??. Catheter site is without signs of infection or bleeding. The catheter was assessed from skin level to bag and is functioning properly. Thin dark brown- green bile is present in the bag. Assessment: - Acute calculous cholecystitis 03/2020 - - CAD - IDDM - Obesity - s/p cardiac catheterization with RCA stent 04/21 - s/p percutaneous cholecystostomy tube 04/22 - s/p percutaneous drainage of a hepatic fluid collection 04/28 (removed 05/19) - Mixed shock state (septic and/or cardiogenic) - Afib with RVR - aeHFpEF - NSTEMI - UGIB secondary to esophagitis and anticoagulation Discussion/Plan: - Today she reports she was [...] deferred due to the GIB. ?? - The DC summary references an outpatient cardiology follow-up with Dr. Galindo in [facility] on 05/18 but she reports she has not seen a circuit clerk. She has an appointment in our system with Dr Valentin on 06/18. - We discussed her surgical options going [...] drainage until then. - Laparoscopic cholecystectomy was briefly discussed. - Follow up with me in early June (with repeat tube cholangiogram the same day). We will discuss Dr Valentin's recommendations, the IR findings, and how they relate to interval cholecystectomy. Thank you for including me in the care of your patient. Please do not hestitate to contact us with any further questions or concerns you may have. Hong Rosenthal MD. 06/03/2020 1:57 PM office [phone] fax [phone] documented in this encounter Plan of Treatment Scheduled Referrals Name Type Priority Associated Diagnoses Orde r Schedule Referral to General Surgery Outpatient Referral Routine Cholecystitis Ordered: 04/26/2020 documented as of this encounter Visit Diagnoses Diagnosis Calculus of gallbladder with acute cholecystitis without obstruction- Primary Calculus of gallbladder with acute cholecystitis, without mention of obstruction CAD S/P percutaneous coronary angioplasty Coronary atherosclerosis of [place] coronary artery documented in this encounter Care Teams Factory Helper Relationship Specialty Start Date End Date Reshma Baig MD [address] [place] [address] PCP - General Family Medicine 11/08/18 06/23/21 documented as of this encounter
--- OUTSIDE RECORDS SUMMARY | 2024-03-17 14:23 | XMS_ITS | Encounter Summary ---
Author Organization [facility] [place] [address] Care Team Providers Care Renal Nurse Name Role Phone Reshma Baig MD Primary Care Provider [phone] Reason for Referral * Diagnostic Test (Routine) - Closed Specialty Diagnoses / Procedures Referred By Malini carlson Referred To Contact Radiology Diagnoses Cholecystitis Infection of cholecystostomy drain, initial encounter Hepatic abscess Type 2 diabetes mellitus with other circulatory complication, unspecified whether boat carpenter insulin use Procedures IR Drain Check/Change/Remove Jos Collins, [facility] [place] [address] [place] [address] [place] [address] Referral ID Status Reason Start Date Expiration Date V isits Requested Visits Authorized [id number] Closed Specialty Service Requested 04/28/2020 10/26/2021 1 1 Reason for Visit * Diagnostic Test (Routine) - Closed Specialty Diagnoses / Procedures Referred By Malini carlson Referred To Contact Radiology Diagnoses Cholecystitis Infection of cholecystostomy drain, initial encounter Hepatic abscess Type 2 diabetes mellitus with other circulatory complication, unspecified whether boat carpenter insulin use Procedures IR Drain Check/Change/Remove Jos Collins [facility] [place] [address] [place] [address] [facility] [address] Referral ID Status Reason Start Date Expiration Date V isits Requested Visits Authorized [id number] Closed Specialty Service Requested 04/28/2020 10/26/2021 1 1 Encounter Details Date Type Department Care Team (Latest Contact Info) Description 05/19/2020 9:14 AM EDT - 05/19/2020 11:59 PM EDT Hospital [place] [id number] Cholecystitis; Infection of cholecystostomy drain, initial encounter; Hepatic abscess; Type 2 diabetes mellitus with other circulatory complication, unspecified whether residential insulin use Discharge Disposition: Home Social History Tobacco Use [...] Sign Reading Time Taken Comments Blood Pressure 135/49 05/19/2020 11:00 AM EDT Pulse 65 05/19/2020 10:30 AM EDT Temperature 37.2 ??C (99 ??F) 05/19/2020 10:38 AM EDT Respiratory Rate 16 05/19/2020 11:00 AM EDT Oxygen Saturation 94% 05/19/2020 11:00 AM EDT Inhaled Oxygen Concentration - - Weight - - Height - - Body Mass Index - - documented in this encounter Discharge Instructions * Discharge Instructions* Xochilt Qureshi RN - 05/19/2020 10:59 AM EDT [facility] Vascular and Interventional Radiology TUBE CARE & DC INSTRUCTIONS FOR BILIARY DRAIN You have had a biliary (liver) tube placed because you have a blockage in your liver that is not allowing the bile to drain. The biliary tube will allow the bile to drain from the liver which may relieve jaundice (yellow skin color) and discomfort. The tube allows the bile to drain either outside into a bag or inside into your intestines (if tube is capped). It is important to empty the bag regularly. What to expect with your drain: You may be sore for approximately one week after the tube is inserted. This may limit your activity. You should be careful to avoid any activity that causes a pulling sensation or pain or kinking of the tube. There may be a little blood in the yellow/green/brown bileafter the tube is placed or changed. If the bleeding doesn???t stop in a couple of days or if the drainage becomes bright red, you should contact your clinician. Bathing: You may sponge bath immediately after your procedure. It is recommended to keep the dressing dry. You may take a shower after 24 hours. You will need to hold onto the tube while showering soit is not dangling. No swimming or hot tubs. Care of your biliary drain: Sometimes the tube becomes blocked, which is why we will schedule regular tube changes for you. ??? Signs of a blocked tube may be abdominal pain, leaking of bile onto the skin, or jaundice (yellowing of the skin and eyes). The tube should be changed within 12-24 hours of these symptoms. ??? You may be asked to flush your tube. You will be given a special syringe with normal saline forthis purpose with instructions about frequency and amounts of solution to use. Please flush your drain as instructed with cc of Normal Saline once or twice daily, usingthe syringes supplied to you. Please DO NOT flush the drain. ??? It is important to take care of your tube. It can be pulled out if it is caught on something. If you think the tube is partly pulled out or if it comes out completely, we can usually replace it easily if you contact us immediately. Please make sure to secure the drain so as not to get pulled. ??? The dressing of split sponges, 4x4 gauze and tape, should be changed every 3 days or when it gets soiled, wet, or loose. It is very important to wash your hands before removing the old dressing and then again before applying the new dressing. When To Call Your Healthcare Provider: ??? If your tube does not flush (if you have been instructed to flush your tube) ??? If bile or blood leaks around the tube ??? If skin around the tube is red or irritated ??? If you have shaking chills and/or fever greater than or equal to 101 degrees Fahrenheit (if these symptoms occur and your tube has been capped you should uncap it and connect to a drainage bag). ??? If you have unusual pain in your abdomen or at the tube site. When to call the Interventional Radiology Department: Please call with any questions or concerns. If it is during regular office hours, please call [phone]. If it is after regular office hours, or on weekends or holidays, please call [phone] and ask to speak to the Gin Inspector real estate salesperson for Interventional Radiology. You have received medication during your procedure to help lessen anxiety and keep you comfortable.These medications affect judgement and reaction time. We recommend that you do not drive, operate equipment, sign any important documents, or smoke unattended for 24 hours following your procedure Because of the sedation, be careful on stairs, as you may be unsteady on your feet. You may resume your regular diet as tolerated. IV site -- slight redness, or tenderness is normal, you can use a warm compress. If tenderness and redness increases or foul drainage occurs, please contact your M. D. Drainage Record NAME: Date of Surgery: Date: Time: If more than one drain, which one: Drainage Amount (per drain) Total Amount (per drain; in 24 hours) Revised 06/12/19 documented in this encounter Medications at Time [...] or as needed. 200 each 3 12/02/2013 amoxicillin-clavula edd (Augmentin) 875-125 mg Tablet Take 1 tablet by mouth 2 times daily for 20 days. 40 tablet 05/08/2020 05/28/2020 clopidogreL (Plavix) 75 mg Tablet Take 1 [...] as of this encounter Progress Notes * Ginna Romano RN - 05/19/2020 10:13 AM EDT [facility] NURSING DATABASE Name: SHANNAN MOODY Date of : 1940 AGE: 79 y.o. [address]: [address] [place] [id number] (home) Mobile: Telephone Information: Referring Provider: Jos Collins REASON FOR VISIT: Order Questions Answers Where will study be performed? [facility] Radiology [120] Reason for exam and clinical history: Ame-Hepatic Abscess s/p drainage 04/28 (abscess drainage catheter located inframedial to the cholecystostomy catheter) Is the patient on anticoagulant / anitplatelet therapy ? Aspirin,Clopidogrel No Known Allergies Pertinent PMH: Patient Active Problem List Diagnosis Code ??? Actinic keratosis L57.0 ??? Seborrheic keratosis L82.1 ??? Type 2 diabetes mellitus E11.59 ??? Hypertension I10 ??? Hyperlipidemia E78.5 ??? Arthritis M19.90 ??? Cholecystitis K81.9 ??? Atrial fibrillation--- paroxysmal I48.91 ??? 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 Aortic stenosis - moderate I35.0 Date/Procedure Meds given/comments 04/22/20 Anna tube ICU patient 04/27/20 CT Perihepatic abscess drain Fentanyl 150 mcg IV, Versed 3 mg IV 05/19/2020 Drain Check-Bili Drain, Liver Abscess Drain Fentanyl 50 mcg IV ? 1008 to procedure room 3 via stretcher. Onto table supine. All monitors, O2, safety strap in place.Meds per protocol. Laboratory Results: Lab Results Component Value Date INR 1.3 04/23/2020 Lab Results Component Value Date CREATININE 0.85 05/08/2020 Lab Results Component Value Date K 4.1 05/08/2020 Lab Results Component Value Date PLATELET 351 05/08/2020 documented in this encounter H&P Notes * Denilson Vargas - 05/18/2020 12:43 PM EDT Images from the original note were not included. INTERVENTIONAL RADIOLOGY FOCUSED H&P and PRE-PROCEDURE NOTE: PCP: Reshma Baig MD Referring Provider: Jos Collins Planned Procedure: Planned procedure: anna tube check and abscess drain check Procedure Indication: Cholecystitis and perihepatic collection Order Questions Answers Where will study be performed? [facility] Radiology [120] Reason for exam and clinical history: Ame-Hepatic Abscess s/p drainage 04/28 (abscess drainage catheter located inframedial to the cholecystostomy catheter) Is the patient on anticoagulant / anitplatelet therapy ? Aspirin,Clopidogrel Presenting Diagnosis/ Complaint: Shannan Moody is a 79 y.o. female with IDDM2, HFpEF and NSTEMIon asa/plavix (stent placed 04/21)and aortic stenosis, s/p cholecystostomy tube 04/22/20 c/b ame-hepatic dome abscess s/p CT guided abscess drain placement 04/28 -abscess drainage catheter located inframedial to the cholecystostomy catheter at skin site. Patient has since been discharged to home per chart review and returns for anna tube check and abscess drain check. Patient has same day appointment with Dr. Rosenthal, general surgery. Date/Procedure ? Meds given/comments 04/22/20 Anna tube ICU patient 04/27/20 CT Perihepatic abscess drain Fentanyl 150 mcg IV, Versed 3 mg IV ? Past Medical/Surgical History: Patient Active Problem List Diagnosis Code ??? Actinic keratosis L57.0 ??? Seborrheic keratosis L82.1 ??? Type 2 diabetes mellitus E11.59 ??? Hypertension I10 ??? Hyperlipidemia E78.5 ??? Arthritis M19.90 ??? Cholecystitis K81.9 ??? Atrial fibrillation--- paroxysmal I48.91 ??? 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 Aortic stenosis - moderate I35.0 Past Medical History: Diagnosis Date ??? Diabetes ??? Severe aortic stenosis Past Surgical History: Procedure Laterality Date ??? CT PERITONEAL DRAINAGE 04/28/2020 CT Guided Drain Peritoneal 04/28/2020 [facility] RAD CAT SCAN ??? HYSTERECTOMY, VAGINAL ??? IR CHOLECYSTOSTOMY TUBE PLACEMENT 04/22/2020 IR Cholecystostomy Tube Placement 04/22/2020 Jos Collins, DO [facility] INTERVENTIONL RAD ??? PRO UPPER GI ENDOSCOPY, DIAGNOSTIC N/A 05/03/2020 EGD, UPPER GI ENDOSCOPY performed by Brigitte Graf MD at [facility] ENDOSCOPY Medications: Current Outpatient Medications on File Prior to Encounter Medication Sig Dispense Refill ??? rosuvastatin (Crestor) 20 mg Tablet Take 1 tablet by mouth every evening. 90 tablet 3 ??? AMIOdarone (Cordarone; Pacerone) 200 mg Tablet Take 1 tablet by mouth 2 times daily. 30 tablet 11 ??? amoxicillin-clavulanate (Augmentin) 875-125 mg Tablet Take 1 tablet by mouth 2 times daily for 20 days. 40 tablet 0 ??? bisacodyl EC (Dulcolax) 5 mg Tablet, Delayed Release (E.C.) Take 2 tablets by mouth daily as needed for Constipation. 30 tablet 0 ??? clopidogreL (Plavix) 75 mg Tablet Take 1 tablet by mouth daily. 90 tablet 3 ??? metoprolol succinate XL (Toprol-XL) 100 mg Tablet Sustained Release 24 hr Take 3 tablets by mouth nightly. 30 tablet 12 ??? polyethylene glycoL (Miralax) 17 gram Powder [...] 2 times daily. 90 tablet 3 ??? minocycline (MINOCIN;DYNACIN) 100 mg Capsule Take one capsule by mouth just before bedtime for 1 week. Then 1 capsule by mouth twice daily. 60 capsule 1 ??? VITAMIN D 1,000 unit Capsule take [...] subcutaneously once a week. 4 Syringe 2 ??? insulin glargine (LANTUS SOLOSTAR) Insulin Pen Inject 27 Units subcutaneously 2 times daily. 50mL 3 ??? insulin needles, disposable, 31 gauge x 5/16 Needle Inject 1 each subcutaneously 6 times daily. 10.65 400 each 3 ??? Blood-Glucose Meter [facility] One Touch Ultra Brand, 250.02. 1 each 0 ??? Lancets [facility] Use twice daily or as needed. 200 each 3 No current facility-administered medications on file prior to encounter. Allergies: Patient has no known allergies. Social History and Habits: Social History Socioeconomic History ??? Marital status: [...] Substance and Sexual Activity ??? Alcohol use: Yes Comment: occassional ??? Drug use: Never ??? Sexual activity: Not Currently Lifestyle ??? Physical activity Days per week: Not on file Minutes per session: Not on file ??? Stress: Not on file Relationships ??? Social connections Talks on phone: Not on file Gets together: Not on file Attends hoahaoism service: Not on file Active member of [...] Social History Narrative ??? Not on file Significant Family History: No family history on file. Pertinent ROS: as per HPI Labs: Lab Results Component Value Date WBC 8.6 05/08/2020 HCT 26.7 (L) 05/08/2020 PLATELET 351 05/08/2020 INR 1.3 04/23/2020 BUN 20 (H) 05/08/2020 CREATININE 0.85 05/08/2020 ALKPHOS 133 (H) 05/04/2020 AST 12 05/04/2020 ALBUMIN 2.9 (L) 05/04/2020 BILIDIR 0.5 (H) 04/20/2020 BILITOT 0.3 05/04/2020 ALT 11 05/04/2020 PROT 6.0 (L) 05/04/2020 K 4.1 05/08/2020 Imaging: Physical Exam: Pending (to be performed in angio the day of procedure) ASA: Pending (to be assessed in angio the day of procedure) Mallampati Class: Pending (to be assessed in angio the day of procedure) Assessment: 79 y.o. female for anna tube check and RUQ abscess drain check Plan: Plan Planned procedure: anna tube check and abscess drain check Labs to be performed day of procedure: No labs Sedation: Fentanyl only Prophylactic antibiotic : None Contrast: Omnipaque Additional medications for procedure: Lidocaine Medications to discontinue (and days held): None Planned access site: RUQ Position: Supine Cytopathology presence needed: No Consent: Scanned 05/18/2020 documented in this encounter Plan of Treatment Not on file documented as of this encounter Procedures Procedure Name Priority Date/Time Associated Diagnosis Comments IR DRAIN CHECK/CHANGE/REMOV E Routine 05/19/2020 10:37 AM EDT Cholecystitis Infection of cholecystostomy drain, initial encounter Hepatic abscess Type 2 diabetes mellitus with other circulatory complication, unspecified whether residential insulin use documented in this encounter Results * IR Drain Check/Change/Remove (05/19/2020 10:37 AM EDT) Anatomical Region Laterality Modality Head X-Ray Angiograph y Narrative 05/19/2020 11:20 AM EDT INTERVENTIONAL RADIOLOGY PROCEDURE NOTE Procedure: ?? Perihepatic drainage catheter evaluation and removal ?? Cholecystostomy catheter evaluation Indication for Procedure: 79 y.o. female with IDDM2, HFpEF and NSTEMI on asa/plavix ??(stent placed 04/21)and aortic stenosis, s/p cholecystostomy tube 04/22/20 c/b ame-hepatic dome abscess s/p CT guided abscess drain placement 04/28 -abscess drainage catheter located inframedial to the cholecystostomy catheter at skin site. ?? Patient has since been discharged to home per chart review and returns for anna tube check and abscess drain check. Patient has same day appointment with Dr. Rosenthal, general surgery. Informed Consent: After discussing risks (including infection, trauma / damage to surrounding structures, hemorrhage, non-success, amongst others), and benefits of the procedure, the patient ??consented to the procedure. Monitoring and Sedation Details: Due to the painful nature of the procedure, patient received split doses of intravenous fentanyl from the IR nurse while pulse, pressure,??end tidal CO2 parameters and oxygen saturation were continuously monitored. Procedure Events and Technique: A standard time-out was conducted just before the start of the procedure to verify all sanchez aspects; including the correct patient and planned procedure, procedure location, informed consent, and all relevant critical information, all of which were correct. The patient was positioned supine on the procedure table. ??The right upper quadrant including the previously placed catheters were cleaned and prepped in typical sterile fashion; maximal sterile barrier technique was used throughout. The procedure was performed under fluoroscopic guidance. Turkish Line Attendant fluoroscopic images of the right upper quadrant were acquired. Under fluoroscopy, contrast was injected through the perihepatic collection drainage catheter. The retaining suture and catheter were cut. ??An 0.035 Amplatz wire was advanced through the catheter and the drain was removed. The wire was removed. A post-removal fluoroscopy image was acquired. ?? Contrast was then injected through the cholecystostomy drainage catheter. The catheter was flushed with saline and capped. Medications: Fentanyl 50 mcg IV. Antibiotic Prophylaxis: None Contrast: 10 cc Omnipaque 350 intra-cavitary and intra-biliary. Fluoroscopic Time: 1.0 minutes, 6.0 mGray, 129 uGy*m2. Estimated Blood Loss: <5 cc. Complications: ??No immediate. Findings: ? The perihepatic / sub-diaphragmatic collection had resolved. The catheter was removed. ? The cholecystostomy catheter is patent within the gallbladder. ??Contrast filled the cystic duct and common bile duct with free flow into the duodenum. There are intraluminal filling defects in the gallbladder consistent with cholelithiasis. The catheter was left in place. Impression: 1. Resolved ame-hepatic / sub-diaphragmatic collection; drainage catheter removed. 2. Cholecystostomy catheter in appropriate positioning. ??Cholelithiasis without choledocholithiasis. ??Patent cystic and common bile ducts. ?? Drainage catheter left in placed; ideally would not be removed until after 6-weeks from placement (04/22/20). Plan: ?? To IR recovery; may discharge home when meets criteria. ? Cholecystostomy catheter evaluation in ~3 weeks, pending surgery consultation and plan later today. ?? Resident/Fellow: Dr. Vargas Attending: Dr. Jos Collins. I, Dr. Collins, was present throughout the procedure. I was present during the intraservice time as documented by the IR Nurse. ?? Jos Collins DO IMG IR ORDERABLES documented in this encounter Visit Diagnoses Diagnosis Cholecystitis Cholecystitis, unspecified Infection of cholecystostomy drain, initial encounter 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, unspecified whether boat carpenter insulin use documented in this encounter Administered Medications Inactive Administered Medications - up to 3 most recent administrations Medication Order MAR Action Action Date Dose Rate Site fentaNYL 50 mcg/mL multi-dose injection 25-50 mcg, Intravenous, EVERY 3 MIN PRN, Starting on Sun05/19/20 at 1002, Until Sun05/20/20 at 0439, Pain, per unit protocol, - Start dose 50 mcg (reduce dose to 25 mcg if history of sedation sensitivity). - Titration dose 25-50 mcg IV, (based on patient response) every 3 minutes PRN, to maintain procedural pain less than 2 per pain Scale. Maximum dose: 50 mcg/dose, 250 mcg/hour For use in Interventional Radiology (IR) only for procedural sedation with direct provider supervision and verbal order., Angio/IR (Intra-Procedure), Routine Given 05/19/2020 10:25 AM EDT 50 mcg iohexoL (Omnipaque) 350 mg/mL solution 50 mL 50 mL, Other, ONCE PRN, Starting on Sun05/19/20 at 1037, Until Sun05/20/20 at 0439, Per Protocol, Warning Vesicant/Irritant Medication , Angio/IR (Intra-Procedure), Routine Given 05/19/2020 10:37 AM EDT 10 mLs lidocaine (XYLOCAINE) 10 mg/mL (1 %) injection 10 mg 10 mg, Subcutaneous, ONCE, 1 dose, On Sun05/19/20 at 1030, For use in Interventional Radiology (IR) only for procedure with direct provider supervision and verbal order., Angio/IR (Intra-Procedure), Routine Given 05/19/2020 10:25 AM EDT 10 mg sodium chloride 0.9% infusion 1,000 mL, at 100 mL/hr, Intravenous, CONTINUOUS, Starting on Sun05/19/20 at 1030, Until Sun05/20/20 at 0439, Angio/IR (Day of Procedure) New Bag 05/19/2020 10:25 AM EDT 1,000 mLs 100 mL/hr documented in this encounter Care Teams Renal Nurse Relationship Specialty Start Date End Date Reshma Baig MD [address] [place] [address] PCP - General Family Medicine 11/08/18 06/23/21 documented as of this encounter
--- OUTSIDE RECORDS SUMMARY | 2024-03-17 14:23 | XMS_ITS | Encounter Summary ---
Author Organization [facility] [place] [address] Care Team Providers Care Aoc Director Combat Operations Officer Name Role Phone Reshma Baig MD Primary Care Provider [phone] Reason for Referral * Diagnostic Test (Routine) - Closed Specialty Diagnoses / Procedures Referred By Malini carlson Referred To Contact Radiology Diagnoses Cholecystitis Procedures IR Biliary Tube Check/Change/Remove Denilson Vargas MD [facility] [place] [address] [place] [address] Referral ID Status Reason Start Date Expiration Date V isits Requested Visits Authorized [id number] Closed Specialty Service Requested 05/19/2020 11/16/2021 1 1 Encounter Details Date Type Department Care Team (Late st Contact Info) Description 05/19/2020 Orders [place] [address] Denilson Vargas MD [facility] [place] [address] Cholecystitis Social History Tobacco Use Types Packs/Day Years [...] documented as of this encounter Results * IR Biliary Tube Check/Change/Remove (06/03/2020 9:41 AM EDT) Anatomical Region Laterality Modality Abdomen X-Ray Angiograph y Narrative 06/03/2020 9:43 AM EDT INTERVENTIONAL RADIOLOGY PROCEDURE NOTE Procedure: Cholecystostomy Catheter Evaluation and Exchange Indication for Procedure: Shannan Moody is a 79 y.o. female with??IDDM2, HFpEF and NSTEMI on asa/plavix??(stent placed 04/21) and aortic stenosis, status post cholecystostomy catheter 04/22/20 complicated by ame-hepatic??dome abscess status post??CT guided abscess??drain??placement??04/28, subsequently removed. IR is consulted for 6-week cholecystostomy catheter evaluation; cholecystostomy catheter was evaluated on 05/19 at the time of abscess drainage catheter evaluation -- widely patent cystic and common bile ducts with free flow into the duodenum; there was cholelithiasis. ??Patient has same-day appointment with Dr. Rosenthal. ?? Informed Consent: After discussing risks (including infection, trauma / damage to surrounding structures, hemorrhage, non-success, amongst others), and benefits of the procedure, the patient consented to the procedure. Monitoring and Sedation Details: The IR nurse was present continuously monitoring ??pulse, pressure, and oxygen saturation. No systemic sedation was utilized. Procedure Events and Technique: A standard time-out was conducted just before the start of the procedure to verify all sanchez aspects; including the correct patient and planned procedure, procedure location, informed consent, and all relevant critical information, all of which were correct. The patient was positioned supine on the procedure table. ??The right upper quadrant including the previously placed cholecystostomy catheter were cleaned and prepped in typical sterile fashion; maximal sterile barrier technique was used throughout. ?? The procedure was performed under fluoroscopic guidance. ??Accounts Payable Analyst fluoroscopic images were obtained. ??Contrast was injected through the catheter. ??Repeat fluoroscopic images were obtained. ??The catheter was cut and an 0.035 Amplatz wire was advanced through the catheter. ??The catheter was removed and a new 10.2-Fr catheter was advanced over the wire into the gallbladder. ??Repeat fluoroscopic image was obtained. ??A sterile dressing was applied. ?? Medications: 2% Lidocaine Jelly Topically. Contrast: 12 cc Omnipaque 350, intra-biliary. Fluoroscopic Time: 0.5 minutes. Estimated Blood Loss: <5 cc. Complications: ??No immediate. Findings: ? Cholecystostomy catheter within gallbladder lumen. ?? ? Patent cystic duct. ??No opacification of the common bile duct. ??No passage of contrast into the duodenum. ??Patient had significant right upper quadrant pain with distention of the gallbladder. ?? ? Exchange for new 10.2-Fr catheter, pigtail formed within the gallbladder lumen. Impression: 1. No opacification of the common bile duct nor duodenum despite opacification of the cystic duct. ?? 2. Successful cholecystostomy catheter exchange. ??Catheter left to gravity drainage. Resident/Fellow: None. Attending: Dr. Jos Collins. I, Dr. Collins, was present throughout the procedure. I was present during the intraservice time as documented by the IR Nurse. Jos Collins DO IMG IR ORDERABLES documented in this encounter Visit Diagnoses Diagnosis Cholecystitis Cholecystitis, unspecified Cholecystitis Cholecystitis, unspecified documented in this encounter Care Teams Aoc Director Combat Operations Officer Relationship Specialty Start Date End Date Reshma Baig MD [address] [place] [id number] PCP - General Family Medicine 11/08/18 06/23/21 documented as of this encounter
--- OUTSIDE RECORDS SUMMARY | 2024-03-17 14:23 | XMS_ITS | Encounter Summary ---
Author Organization [facility] [place] [address] Care Team Providers Care Recovery Manager Name Role Phone Reshma Baig MD Primary Care Provider [phone] Reason for Referral * Diagnostic Test (Routine) - Closed Specialty Diagnoses / Procedures Referred By Contac t Referred To Contact Radiology Diagnoses Cholecystitis Procedures IR Biliary Tube Check/Change/Remove Denilson Vargas MD [facility] [place] [address] [facility] [place] [address] Referral ID Status Reason Start Date Expiration Date V isits Requested Visits Authorized [id number] Closed Specialty Service Requested 05/19/2020 11/16/2021 1 1 Reason for Visit * Diagnostic Test (Routine) - Closed Specialty Diagnoses / Procedures Referred By Contac t Referred To Contact Radiology Diagnoses Cholecystitis Procedures IR Biliary Tube Check/Change/Remove Denilsno Vargas MD [facility] [place] [address] [facility] [place] [address] Referral ID Status Reason Start Date Expiration Date V isits Requested Visits Authorized [id number] Closed Specialty Service Requested 05/19/2020 11/16/2021 1 1 Encounter Details Date Type Department Care Team (Latest Contact Info) Description 06/03/2020 8:15 AM EDT - 06/03/2020 11:59 PM EDT Hospital Encounter Radiology at [facility] [place], operated [facility] [place] [address] Jos Collins, [facility] [place] [address] Cholecystitis Discharge Disposition: Home Social History Tobacco Use [...] Sign Reading Time Taken Comments Blood Pressure 133/57 06/03/2020 9:44 AM EDT Pulse 62 06/03/2020 8:31 AM EDT Temperature 36.7 ??C (98.1 ??F) 06/03/2020 9:44 AM ED T Respiratory Rate 16 06/03/2020 9:44 AM EDT Oxygen Saturation 85% 06/03/2020 9:44 AM EDT Inhaled Oxygen Concentration - - Weight - - Height - - Body Mass Index - - documented in this encounter Discharge Instructions * Discharge Instructions* Serena Orta RN - 06/03/2020 9:33 AM EDT [facility] Vascular and Interventional Radiology TUBE CARE & [...] of Normal Saline once or twice daily, using thesyringes supplied to you. __X___ Please DO NOT flush the drain. ??? [...] is during regular office hours, please call [phone]. If it is after regular office hours, or on weekends or holidays, please call [phone] and ask to speak to the Pharmacy Operations Coordinator workplace relations adviser for Interventional Radiology. You have received medication [...] as of this encounter Progress Notes * Bobbi Fernandez RN - 06/03/2020 10:02 AM EDT D/C via W/C with daughter Natty. Denied any pain or discomfort. * Serena Orta RN - 06/03/2020 9:32 AM EDT ANGIO NURSING DATABASE Name: LAKESHIA MOODY Date of : 1940 AGE: 79 y.o. [address]: [address] [place] [address] (home) Mobile: Telephone Information: Referring Provider: Michael Baron REASON FOR VISIT: Order Questions Answers Where will study be performed? [facility] Radiology [120] Is the patient on anticoagulant / anitplatelet therapy ? No Reason for exam and clinical history: anna tube check. If Surgical note plans for cholecystectomy,then we can cancel this order. Plan: Plan Planned procedure: anna tube check and abscess drain check Labs to be performed day of procedure: No labs Sedation: Fentanyl only Prophylactic antibiotic : None Contrast: Omnipaque Additional medications for procedure: Lidocaine Medications to discontinue (and days held): None Planned access site: RUQ Position: Supine Cytopathology presence needed: No Consent: Scanned No Known Allergies Pertinent PSH: Past Surgical History: Procedure Laterality Date ??? CT PERITONEAL DRAINAGE 04/28/2020 CT Guided Drain Peritoneal 04/28/2020 [facility] RAD CAT SCAN ??? HYSTERECTOMY, VAGINAL ??? IR CHOLECYSTOSTOMY TUBE PLACEMENT 04/22/2020 IR Cholecystostomy Tube Placement 04/22/2020 Jos Collins, DO [facility] INTERVENTIONL RAD ??? IR DRAIN CHECK/CHANGE/REMOVE 05/19/2020 IR Drain Check/Change/Remove 05/19/2020 Jos Collins, DO [facility] INTERVENTIONL RAD ??? PRO UPPER GI ENDOSCOPY, DIAGNOSTIC N/A 05/03/2020 EGD, UPPER GI ENDOSCOPY performed by Brigitte Graf MD at [facility] ENDOSCOPY Date/Procedure Meds given/comments 04/22/20 Anna tube ICU patient 04/27/20 CT Perihepatic abscess drain Fentanyl 150 mcg IV, Versed 3 mg IV 06/03/20 Anna tube check and exchange Lido jelly Might benefit from fentanyl for next check- had some pain ? Lakeshia to procedure room 3 via stretcher. Onto table Supine. All monitors, O2, safety strap in place. Meds per protocol. Laboratory Results: Lab Results Component Value Date INR 1.3 04/23/2020 Lab Results Component Value Date CREATININE 0.85 05/08/2020 Lab Results Component Value Date K 4.1 05/08/2020 Lab Results Component Value Date PLATELET 351 05/08/2020 documented in this encounter H&P Notes * Jos Collins, DO - 06/01/2020 10:49 AM EDT Images from the original note were not included. INTERVENTIONAL RADIOLOGY FOCUSED H&P and PRE-PROCEDURE NOTE: PCP: Reshma Baig MD Referring Provider: Michael Baron Planned Procedure: Planned procedure: Cholecystostomy Catheter Evaluation Procedure Indication: Order Questions Answers Where will study be performed? [facility] Radiology [120] Is the patient on anticoagulant / anitplatelet therapy ? No Reason for exam and clinical history: anna tube check. If Surgical note plans for cholecystectomy,then we can cancel this order. Presenting Diagnosis/ Complaint: Lakeshia Moody is a 79 y.o. female with IDDM2, HFpEF and NSTEMIon asa/plavix (stent placed 04/21) and aortic stenosis, status post cholecystostomy catheter 04/22/20complicated by ame-hepatic dome abscess status post CT guided abscess drain placement 04/28, subsequently removed. IR is consulted for 6-week cholecystostomy catheter evaluation; cholecystostomy catheter was evaluated on 05/19 at the time of abscess drainage catheter evaluation -- widely patent cystic and common bile ducts with free flow into the duodenum; there was cholelithiasis. Patient has same-day appointment with Dr. Rosenthal. Past Medical/Surgical History: Patient Active Problem List [...] DRAINAGE 04/28/2020 CT Guided Drain Peritoneal 04/28/2020 [facility] RAD CAT SCAN ??? HYSTERECTOMY, VAGINAL ??? IR CHOLECYSTOSTOMY TUBE PLACEMENT 04/22/2020 IR Cholecystostomy Tube Placement 04/22/2020 Jos Collins, DO [facility] INTERVENTIONL RAD ??? IR DRAIN CHECK/CHANGE/REMOVE 05/19/2020 IR Drain Check/Change/Remove 05/19/2020 Jos Collins, DO [facility] INTERVENTIONL RAD ??? PRO UPPER GI ENDOSCOPY, DIAGNOSTIC N/A 05/03/2020 EGD, UPPER GI ENDOSCOPY performed by Brigitte Graf MD at [facility] ENDOSCOPY Medications: Current Outpatient Medications on [...] file Gets together: Not on file Attends jewish service: Not on file Active member of [...] 6.0 (L) 05/04/2020 K 4.1 05/08/2020 Imaging: Drainage Catheter Study - 05/19/20 Physical Exam: Pending (to be performed in angio the day of procedure) ASA: Pending (to be assessed in angio the day of procedure) Mallampati Class: Pending (to be assessed in angio the day of procedure) Assessment: 79 y.o. female with IDDM2, HFpEF and NSTEMI on asa/plavix (stent placed 04/21) and aortic stenosis, status post cholecystostomy catheter 04/22/20 complicated by ame-hepatic dome abscess status post CT guided abscess drain placement 04/28, subsequently removed. IR is consulted for 6-week cholecystostomy catheter evaluation. Patient has same-day appointment with Dr. Rosenthal. Plan: Plan Planned procedure: Cholecystostomy Catheter Evaluation Labs to be performed day of procedure: No labs Sedation: No Sedation Prophylactic antibiotic : None Contrast: Omnipaque Additional medications for procedure: Lido jelly Medications to discontinue (and days held): None Planned access site: Cholecystostomy Catheter Position: Supine Cytopathology presence needed: No Consent: Completed 06/01/2020 documented in this encounter Plan of Treatment Not on file documented as of this encounter Procedures Procedure Name Priority Date/Time Associated Diagnosis Comments IR BILIARY- CHOLECYSTOSTOMY CATHETER EVALUATION/EXCHANGE Routine 06/03/2020 9:41 AM EDT Cholecystitis POCT GLUCOSE Routine 06/03/2020 8:34 AM EDT documented in this encounter Results * IR Biliary Tube Check/Change/Remove (06/03/2020 9:41 AM EDT) Anatomical Region Laterality Modality Abdomen X-Ray Angiograph y Narrative 06/03/2020 9:43 AM EDT INTERVENTIONAL RADIOLOGY PROCEDURE NOTE Procedure: Cholecystostomy Catheter Evaluation and Exchange Indication for Procedure: Lakeshia Moody is a 79 y.o. female with??IDDM2, [...] The procedure was performed under fluoroscopic guidance. ??Auto Body Painter fluoroscopic images were obtained. ??Contrast was injected [...] as documented by the IR Nurse. Jos Collnis DO IMG IR ORDERABLES * POCT Glucose (06/03/2020 8:34 AM EDT) POC Glucose 137 65 - 199 mg/dL [facility] Comment: Supplemental ranges: <140 mg/dL before meals <180 mg/dL all other times of the day Blood specimen (specimen) 06/03/2020 8:34 AM EDT 06/03/2020 8:34 AM EDT Jos Collins DO POINT OF CARE TEST O RDERABLES [facility] [place] [address] documented in this encounter Visit Diagnoses Diagnosis Cholecystitis Cholecystitis, unspecified documented in this encounter Administered Medications Inactive Administered Medications - up to 3 most recent administrations Medication Order MAR Action Action Date Dose Rate Site iohexoL (Omnipaque) 350 mg/mL solution 50 mL 50 mL, Other, ONCE PRN, 1 dose, Starting on Noreen 10 at 0941, Until Noreen 06/03/20 at 0941, Per Protocol, Warning Vesicant/Irritant Medication , Angio/IR (Intra-Procedure), Routine Given 06/03/2020 9:41 AM EDT 12 mLs lidocaine (XYLOCAINE) 2 % jelly Topical (Top), EVERY 4 HOURS PRN, Pain, Starting on Noreen 06/03/20 at 0829, Until Noreen 06/03/20 at 1306, For use in Interventional Radiology (IR) only for procedure with direct provider supervision and verbal order., Angio/IR (Intra-Procedure) Given 06/03/2020 9:14 AM EDT documented in this encounter Care Teams Recovery Manager Relationship Specialty Start Date End Date Reshma Baig MD [address] [place] [address] PCP - General Family Medicine 11/08/18 06/23/21 documented as of this encounter
--- OUTSIDE RECORDS SUMMARY | 2024-03-17 14:25 | XMS_ITS | Encounter Summary ---
Author Organization [facility] Address [facility] [place] [address] Care Team Providers Care Senior Contract Specialist Name Role Phone Reshma Baig MD Primary Care Provider [phone] Reason for Referral * Diagnostic Test (Routine) - Closed Specialty Diagnoses / Procedures Referred By Malini carlson Referred To Contact Radiology Diagnoses Cholecystitis Infection of cholecystostomy drain, initial encounter Hepatic abscess Type 2 diabetes mellitus with other circulatory complication, unspecified whether melt superintendant insulin use Procedures IR Drain Check/Change/Remove Jos Collins DO [facility] [place] [address] [place] [address] Referral ID Status Reason Start Date Expiration Date V isits Requested Visits Authorized [id number] Closed Specialty Service Requested 04/28/2020 10/26/2021 1 1 * Consultation (Routine) - Closed Specialty Diagnoses / Procedures Referred By Malini carlson Referred To Contact General Surgery Diagnoses Cholecystitis Julianna Hendrix MD [facility] [place] [address] [facility] Gen Surgery [address] [place] [phone] Referral ID Status Reason Start Date Expiration Date V isits Requested Visits Authorized [id number] Closed Consult, Test & Treat 04/26/2020 04/26/2021 1 1 * Consultation (Routine) - Closed Specialty Diagnoses / Procedures Referred By Contact Referred To Contact Cardiac Rehabilitation Diagnoses Non-ST elevation myocardial infarction (NSTEMI) Abiodun Chun MD [facility] [place] [address] Cardiac Rehab, [facility] [address] [place] [address] [place] [address] Referral ID Status Reason Start Date Expiration Date V isits Requested Visits Authorized [id number] Closed Consult, Test & Treat Non DH PCP 04/26/2020 10/23/2020 36 36 Reason for Visit * Auth/Cert Specialty Diagnoses / Procedures Referred By Contac t Referred To Contact Diagnoses Cholecystitis Cholecystitis Procedures EMERGENCY IPI Referral ID Status Reason Start Date Expiration Date Visits Re quested Visits Authorized [id number] 1 1 Encounter Details Date Type Department Care Team (Latest Contact Info) Description 04/19/2020 1:57 PM EDT - 05/08/2020 1:35 PM EDT Hospital Encounter [address] [id number] Magdalene Lopez MD [facility] [place] [address] [place] [address] Hong Rosenthal MD [facility] [place] [address] Abiodun Chun MD [facility] [place] [address] Dale [place] [address] [place] [address] [place] [address] Aortic valve stenosis, etiology of cardiac valve disease unspecified; Hypertension, unspecified type; Non-ST elevation myocardial infarction (NSTEMI); Cholecystitis; Infection of cholecystostomy drain, initial encounter; Hepatic abscess; Type 2 diabetes mellitus with other circulatory complication, unspecified whether melt superintendant insulin use Discharge Disposition: Home with [facility] Social History [...] Sign Reading Time Taken Comments Blood Pressure 137/60 05/08/2020 11:12 AM EDT Pulse 61 05/08/2020 11:12 AM EDT Temperature 36.7 ??C (98 ??F) 05/08/2020 11:12 AM EDT Respiratory Rate 16 05/08/2020 11:12 AM EDT Oxygen Saturation 97% 05/08/2020 11:12 AM EDT Inhaled Oxygen Concentration - - Weight 83.6 kg (184 lb 4.9 oz) 04/28/2020 5:00 A M EDT Height 152.4 cm (5') 04/19/2020 6:06 PM EDT Body Mass Index 35.99 04/19/2020 6:06 PM EDT documented in this encounter Discharge Summaries * Davon Leung MD - 05/08/2020 10:38 AM EDT Images from the original note were not included. Discharge Summary Patient Name: Shannan Chaudhary Patient Age: 79 y.o. Language: Uzbek Race: White Ethnicity: Not nor Admit date: 04/19/2020 Discharge date and time: 05/08/20 Attending Physician: Kota Gonzales MD Discharge Physician: Kota Gonzales MD Follow-up Recommendations for Providers: - Please complete sinogram on 05/19; please continue on Augmentin until 2 days after removal of liver abscess drain - Please evaluate role for cholecystectomy in patient in general surgery clinic appointment on 06/03 - Anticoagulation regimen: Continue DAPT; ASA and plavix - Apixiban HOLD: on discharge in the setting of melena and esophagitis, [id number] (11% risk) - Amiodarone 200mg BID for a total of 1 month (from 04/22 to 05/22); close cardiology follow-up scheduled for 05/18 - GI: EGD completed; recommending colonoscopy as outpatient Inpatient Provider Contact Information: For questions regarding this document or issues relating to this hospitalization on the Medical Service, please contact your inpatient physician through the [facility] Tax Representative . Issues afterhours and on weekends will be handled by the Hospitalist staff on-call. Discharge Diagnoses (Hospital Problems) and Secondary Diagnoses (Chronic Problems): Active Hospital Problems Diagnosis ??? 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 Aortic stenosis - moderate ??? Atrial fibrillation--- paroxysmal ??? Cholecystitis Resolved Hospital Problems No resolved problems to display. Active Non-Hospital Problems Diagnosis ??? Type 2 diabetes mellitus ??? Hypertension ??? Hyperlipidemia ??? Arthritis ??? Actinic keratosis ??? Seborrheic keratosis Operations/Major Procedures: Operations: Procedure(s): EGD, UPPER GI ENDOSCOPY 05/03/2020 Procedure(s): EGD, UPPER GI ENDOSCOPY 05/03/2020 Other Major Procedures: None History of Presentation: Shannan Chaudhary is a 79 y.o. female with PMH IDDM and reported aortic stenosis with valve area 0.8 (records unavailable in [facility] but reviewed by [facility] referring MD) who is admitted in transfer with cholecystitis. She reports that she vaguely recalls a previous echo and need for cardiology follow-up within the past year, but then she broke her leg and was then further delayed in her presentation due to COVID-19. She was due for a stress test recently but did not make the visit due to her admission for cholecystitis. ?? In terms of her cholecystitis she describes pain since last Sunday. She was seen in the ED but left that night. Her pain worsened over the subsequent days and she presented to [facility] ED yesterday (Sunday). There her tBili was noted to be 2.2 and is stable at 2.1 here. Patient transferred from [facility] on 04/19 for cardiac preop eval due to severe for acute cholecystitis that likely started last Sunday. Hospital course has been complicated by afib with RVR and subsequent hypotension, diaphoresis, and confusion that was refractory to oral and 1-time IV metoprolol. She also developed hypoxic respiratory failure that escalated her oxygen requirements from room air to nasal cannula to BiPAP in order to maintain adequate oxygenation. She was given . She was thus transferred to the ICU for further care with metoprolol and phenlephrine and consideration of amiodarone. ?? In the ICU, she converted to sinus rhythm and improved hemodynamically without administration of amiodarone. Cardiology was consulted for pre-op assessment. After discussion with Dr. Rahman and Dr. Patel, patient was taken to the biological lab technician for RHC and evaluation. ?? In the biological lab technician she was found to have two vessel coronary disease affecting the LAD and LCA, with one synergy stent inserted into an osteal RCA lesion, as well as elevated LVEDP of 21. Aortic valve gradient was 22, and no balloon valvuloplasty was performed. She was found to be markedly hypertensive during the procedure and was started on a nitro drip intraprocedurally to control her blood pressures. The patient was then transferred back to the [facility]. On conference between the General Surgery attending Dr. Garrison and Dr. Rahman, the patient was kept NPO. ?? At bedside, Ms. Chaudhary is tired but rousable, with no acute complaints. Full ROS was deferred given her mental status post-sedation. Hospital Course: # afib RVR # ADHF #NSTEMI; stent placed to RCA 04/21 The patient was admitted to the medicine. Stable on medicine floor, managed on metoprolol and amiodarone and remained in NSR without evidence of HF. She was initially started on apixaban in the setting of atrial fibrillation; however she was ntoed to have melena and an EGD concerning for esophagitis. The decision was made to d/c apixaban prior to discharge and continue on DAPT in light of new stent placement. She has a cardiology follow-up scheduled with Dr. Galindo in [facility] on May 18 at 1pm. Will need discharge summary faxed to the clinic at [phone]. #Esophagitis #Melena #Acute Blood loss anemia Ms. Chaudhary was noted to have ongoing melena from 05/03-05/06 (1-2 dark tarry BMs a day). This was associated with a downtrending hemoglobin, She underwent an EGD with gastro. She was noted to have esophagitis with no active bleeding. She was started on BID pantoprazole. She was continued on plavix; held asa and apixaban until hemoglobn was stable. She was restarted on asa and plavix. Her hemoglobin remained stable for discharge. # cholecystitis, s/p perq cholecystostomy 04/22 # liver fluid collection, s/p SIS drain by IR 04/28 Started on pip-tazo, remained stable, transitioned to cipro BID with flagyl TID and remained stable; based on QTc in 490s while on cipro and amiodarone, transitioned to Augmentin to complete course Shannan Chaudhary??is a 79 y.o.??female??with multiple cardiac risk factors in the form of HTN, HLD, and DM and now afib with RVR who presented to our service initialy as a preop consult and is now s/p stenting of her RCA, in the midst of active cholecystitis. ??She is stable post-catheterization, and is now planned for placement of a percutaneous cholecystostomy tube on 04/22 given her requirement for DAPT for at least 6 weeks with her new synergy stent -- she can likely be considered for a proper cholecystectomy after 6 weeks, when her DAPT can be paused for the procedure should it be needed. ??Thankfully her was found to not be as bad as suggested on her TTE, which obviates the need for a balloon valvuloplasty or valve replacement in the near future, though it may be required eventually. ?? She had an increasing leukocytosis. She otherwise shows no s/s of worsening infection from a hemodynamic or symptomatic standpoint. Zosyn was stopped and her WBC increased. CT abd/pelvis was done which showed a new hepatic abscess. IR placed another drain on 04/28. She will need follow-up with surgery in 6 weeks with IR cholecystostomy tube study. Vital Signs at Discharge: BP: 137/60, Heart Rate: 61, Temp: 36.7 ??C (98 ??F), Resp: 16, BMI (Calculated): 37.1 Height: 152.4 cm (5') (04/19/20 1806) Weight: 83.6 kg (184 lb 4.9 oz) (04/28/20 0500) Functional and Cognitive Status: Baseline cognitive status, improving functional status Important Studies and Lab Data: Labs: Last wbc, hgb, hct plt Recent Labs 05/08/20 0546 WBC 8.6 HGB 8.8* HCT 26.7* Last 3 wbc, hgb, hct plt Recent Labs 05/08/20 0546 05/07/20 0645 05/06/20 1736 WBC 8.6 7.8 9.7* HGB 8.8* 8.8* 9.7* HCT 26.7* 26.4* 29.8* PLATELET 351 360* 427* Last 3 Lytes Recent Labs 05/08/20 0546 05/07/20 0645 05/06/20 0525 NA 136 137 137 K 4.1 4.1 4.2 CL 107 105 106 CO2 21* 21* 21* BUN 20* 18 24* CREATININE 0.85 0.85 0.85 Last 3 LFTs Recent Labs 05/04/20 0518 05/03/20 0508 05/02/20 0613 04/20/20 0243 AST 12 7 9 < > Not Perf 18 ALT 11 8 10 < > Not Perf 22 ALKPHOS 133* 136* 130* < > Not Perf 139* BILITOT 0.3 0.3 0.4 < > Not Perf 1.5* BILIDIR -- -- -- -- 0.5* < > = values in this interval not displayed. Last Ca, Mg, Phos Recent Labs 05/08/20 0546 CALCIUM 8.9 MAGNESIUM 0.79 Last 3 Coags No results for input(s): PT, INR, PTT in the last 168 hours. Last 3 ProBNP, Trop, CK Recent Labs 05/02/20 0613 PROBNP 248 Last 3 TFT Recent Labs 04/22/20 0350 TSH 1.22 Last 3 Lipids Recent Labs 04/22/20 0350 CHLPL 104 HDL 17 LDLCHOL 40 TRIG 237 Last 3 HgbA1C Recent Labs 04/22/20 0350 HA1C 8.5* Studies: 1. Mild concentric left ventricular hypertrophy is [...] by low stroke volume index (23 ml/m2). Pending Studies and Lab Data: None Discharge Conditions/Prognosis: stable Discharge to: home Updated Allergies/ADRs: No Known Allergies Immunizations Given this Hospitalization: There is no immunization history on file for this patient. Discharge Medications: Your Medications New Medications Dose Details AMIOdarone 200 mg Tab Commonly known as: Cordarone; Pacerone Take 1 tablet by mouth 2 times daily. 200 mg Quantity: 30 tablet Refills: 11 amoxicillin-clavulanate 875-125 mg Tab Commonly known as: Augmentin Take 1 tablet by mouth 2 times daily for 20 days. 1 tablet Quantity: 40 tablet Refills: 0 aspirin 81 mg Chew Take 81 mg by mouth daily. Start taking on: May 09, 2020 81 mg Quantity: 30 tablet Refills: 3 bisacodyl EC 5 mg Tbec Commonly known as: Dulcolax Take 2 tablets by mouth daily as needed for Constipation. 10 mg Quantity: 30 tablet Refills: 0 clopidogreL 75 mg Tab Commonly known as: Plavix Take 1 tablet by mouth daily. 75 mg Quantity: 90 tablet Refills: 3 metoprolol succinate XL 100 mg Tablet sr Commonly known as: Toprol-XL Take 3 tablets by mouth nightly. 300 mg Quantity: 30 tablet Refills: 12 pantoprazole EC 40 mg Tbec Commonly known as: Protonix Take 1 tablet by mouth 2 times daily. 40 mg Quantity: 90 tablet Refills: 3 polyethylene glycoL 17 gram Pwpk Commonly known as: Miralax Take 17 g by mouth daily. 17 g Quantity: 14 each Refills: 0 Continued medications with new dosing Dose Details losartan 25 mg Tab Commonly known as: Cozaar Take 1 tablet by mouth daily. Start taking on: May 09, 2020 What changed: ?? medication strength ?? See the new instructions. 25 mg Quantity: 90 tablet Refills: 3 rosuvastatin 20 mg Tab Commonly known as: Crestor Take 1 tablet by mouth every evening. What changed: ?? medication strength ?? See the new instructions. 20 mg Quantity: 90 tablet Refills: 3 Continued medications, unchanged Dose Details blood sugar diagnostic strips [facility] Commonly known as: OneTouch Ultra Test 1 each by Other route 3 times daily (before meals). Diag code E10.65 1 each Quantity: 300 each Refills: 3 Blood-Glucose Meter [facility] One Touch Ultra Brand, 250.02. Quantity: 1 each Refills: 0 dulaglutide 0.75 mg/0.5 mL Pnij Inject 0.75 [...] as needed. Quantity: 200 each Refills: 3 metroNIDAZOLE 0.75 % Crea Commonly known as: METROCREAM Apply twice daily to face after washing Quantity: 45 g Refills: 3 minocycline 100 mg Cap Commonly known as: Minocin;Dynacin Take one capsule by mouth just before bedtime for 1 week. Then 1 capsule by mouth twice daily. Quantity: 60 capsule Refills: 1 Victoza 2-Isabel 0.6 mg/0.1 mL (18 mg/3 mL) Pnij inject 1.2 milligram subcutaneously daily Generic drug: liraglutide Refills: 0 Vitamin D 25 mcg (1,000 unit) Cap take 1 capsule by mouth daily Generic drug: cholecalciferol (Vitamin D3) Refills: 0 Vitamins B Complex Tab take 1 capsule by mouth once daily Generic drug: b complex vitamins Refills: 0 Smoking Status at Discharge: Social History Tobacco Use Smoking Status Never Smoker Smokeless Tobacco Never Used Instructions Given to Patient at Discharge: Patient Instructions Instructions on Discharge to Home Why you were hospitalized for acute cholecystitis. While in the hospital you went into atrial fibrillation with rapid ventricular response. You were found to have moderate aortic stenosis as well as a blockage in your right coronary artery, a stent was placed in this artery. You had a percutaneous c holecystostomy tube place in your gallbladder to drain the infection. You will go home with this drain. You will need to follow-up with general surgery clinic in about 6 weeks to discuss surgery for yourgallbladder. You have a study on the percutaneous cholecystostomy tube scheduled in May that will help general surgery in this decision. Call your doctor or seek medical attention if you develop the following - chest pain, shortness of breath, feeling dizzy upon standing, passing out, diarrhea, constipation lasting longer than 2 days,fevers (temperature over 100.3), chills, abdominal pain, vomiting, difficulty or discomfort when urinating, bloody or black bowel movements, or any other acute or concerning symptom. Activity level - No restrictions Diet - No change in previous diet Driving - As before hospitalization Shower/Bath - Shower only and pat dry the drain site Wound Care - None Home Oxygen therapy - Not necessary Your Discharge Medication List For your abnormal heart rhythm (atrial fibrillation) - Amiodarone 200mg TWICE a DAY - Metoprolol Succinate 300mg ONCE a DAY - Losartan 25mg (smaller dose than before!) Once a DAY For your coronary artery disease (recent stent placed in heart) - Asprin 81mg ONCE a DAY - Clopidogrel (plavix) 75mg Once a DAY For your esophagitis, bleeding, and dark stool - Pantoprazole 40mg TWICE a DAY For your infection (liver and gall bladder) - Augmentin 875/125 TWICE a DAY; until two days after your tubes are removed To Do: Cholecystotomy drain: Does not need to be flushed Abscess drain (SIS, bulb drain): Please flush twice a day with normal saline flushes - The visiting nursing team will help you with this as well Follow-up: Future Appointments Date Time Provider Department Center 05/19/2020 10:30 AM [facility] IR ROOM 3 IR [facility] Rad 06/03/2020 10:10 AM [facility] IR ROOM 4 IR [facility] Rad 06/03/2020 2:00 PM Hong Rosenthal MD [facility] SURG [facility] You have a follow-up with cardiology scheduled for May [address] Galindo in [facility]. Your Primary Care Provider: Reshma Baig MD [phone] For questions regarding this document or issues relating to this hospitalization on the Medical Service, please contact your inpatient physician through the [facility] Tax Representative . Issues afterhours and on weekends will be handled by the Hospitalist staff on-call. General Instructions INTERVENTIONAL RADIOLOGY [place] DRAIN CARE INSTRUCTIONS How do I care for the drains at home? Pin your drain/s to your clothing by using a safety pin through the plastic loop on the top of the bulb. If the drain is not attached to your clothing, it may pull out from under your skin. Also, a drain usually feels more comfortable when it???s attached. To care for the drain at home, you will have to empty the drain, ???strip?? the drain tubing, and change the dressing if applicable. * See the following information on instructions on how to do this. You will go home with a dressing over the insertion site. Usually, Visiting Nurses are set up to show you how to change the dressing and care for the drain. They may teach a family member if they arewilling. The dressing needs to only be change once a week provided there is no leakage around the tube. What problems may I have with my drain? No drainage or sudden decrease in amount of drainage- This may be due to a plug in the drain. Please notify your doctor or nurse during business hours. ??? The tube accidentally falls out- If this happens, place a dry gauze dressing over the drain site and notify your doctor or nurse during business hours. ??? Increased redness, swelling, or heat around the tube insertion site- This may be a sign of infection. Take your temperature: if it is higher than 101F or 38.8C, call your doctor or nurse immediately. Otherwise, notify your doctor or nurse during business hours and keep the dressing clean and dry. How to Empty Your Drain and flush drain Note: Wash your hands thoroughly before emptying your drain(s). Unpin the drain from your clothing. 1. Turn the white stopcock so it is not parallel (in line) with the tubing. 2. Unscrew the tubing with the bag attached from stopcock. Make sure you keep everything clean. 3. Attach the syringe with sterile saline to the stopcock. 4. Re-attach the tubing with the bag to the stopcock. 5. Invert the bag and pull open the plug. 6. Have the plastic measuring cup from the hospital ready to collect and measure the drainage. Please measure the output at the same time every 24 hours and record the amount. 7. Turn the drain upside down and squeeze the contents of the bulb into the measuring cup. Be sure to empty the bag as completely as possible. Empty contents of the bag into the toilet. 8. Use the drain output log chart to record the amount of drainage twice a day or any time the bag is full. Record the total for 24 hours for each drain you have. 9. If you have more than one drain, remember to record the drainage from each drain separately. 10. To prevent infection, do not let the stopper or top of the bottle touch the measuring cup or any other surface. Always put a orthopedically impaired teacher on the end to keep clean. 11. If you drainage bags starts to have an odor, you can clean the bag after removing it from the tube. Turn the stopcock to off. Put on a orthopedically impaired teacher to the end of the stopcock to keep clean. To clean the bag, fill it with 2 parts vinegar to 3 parts water, and let it stand for 20 minutes. Then empty it out, and let it air dry. Reattach to drain and open the stopcock. When to call the Interventional Radiology Department: Please call with any questions or concerns. If it is during regular office hours, please call [phone]. If it is after regular office hours, or on weekends or holidays, please call [phone] and ask to speak to the [employer] information coordinator for Interventional Radiology. XX You have received medication during your procedure to help lessen anxiety and keep you comfortable. These medications affect judgement and reaction time. We recommend that you do not drive, operate equipment, sign any important documents, or smoke unattended for 24 hours following your procedure. Because of the sedation, be careful on stairs, as you may be unsteady on your feet. You may resume your regular diet as tolerated. IV site -- slight redness, or tenderness is normal, you can use a warm compress. If tenderness and redness increases or foul drainage occurs, please contact your M. D. Revised 06/12/19 Drainage Record NAME: Date of Surgery: Date: Time: If more than one drain, which one: Drainage Amount (per drain) Total Amount (per drain; in 24 hours) INTERVENTIONAL RADIOLOGY ABSCESS DRAIN CARE INSTRUCTIONS Drains help to keep fluid from collecting by removing the extra blood and fluid from under the skinor from an abscess within the body. A drain is temporary. It stays in place until the drainage has slowed down or stopped. Your Provider will decide when each drain should be removed. This is usuallyafter each drain has 30cc or less in 24 hours for 2-3 days in a row. You will then be scheduled for what is called a Sinogram to check and see if the fluid collection has gotten smaller. How do I care for the drains at home? Pin your drain/s to your clothing by using a safety pin through the plastic loop on the top of the bulb. If the drain is not attached to your clothing, it may pull out from under your skin. Also, a drain usually feels more comfortable when it???s attached. To care for the drain at home, you will have to empty the drain, ???strip?? the drain tubing, and change the dressing if applicable. * See the following information on instructions on how to do this. You will go home with a dressing over the insertion site. Usually, Visiting Nurses are set up to show you how to change the dressing and care for the drain. They may teach a family member if they arewilling. The dressing needs to only be change once a week provided there is no leakage around the tube. What problems may I have with my drain? The bulb is not compressed- The bulb may not be squeezed tightly enough, the plug may not be closed securely, or the tube has slipped out a bit and is leaking. Follow the instructions on how to empty the drain. If the bulb remains expanded, then notify your doctor or nurse during business hours. ??? No drainage or sudden decrease in amount of drainage- This may be due to a plug in the drain. Please notify your doctor or nurse during business hours. ??? The tube accidentally falls out- If this happens, place a dry gauze dressing over the drain site and notify your doctor or nurse during business hours. ??? Increased redness, swelling, or heat around the tube insertion site- This may be a sign of infection. Take your temperature: if it is higher than 101F or 38.8C, call your doctor or nurse immediately. Otherwise, notify your doctor or nurse during business hours and keep the dressing clean and dry. How to Empty Your Drain and flush drain Note: Wash your hands thoroughly before emptying your drain(s). Unpin the drain from your clothing. 1. Turn the white stopcock so it is not parallel (in line) with the tubing. 2. Unscrew the tubing with the bulb attached from stopcock. Make sure you keep everything clean. 3. Attach the syringe with sterile saline to the stopcock. 4. Inject saline per MD order, 3-5 cc's. Forward flush only, do not aspirate back. 5. Re-attach the tubing with the bulb to the stopcock. 6. Invert the bulb and pull open the plug. 7. Have the plastic measuring cup from the hospital ready to collect and measure the drainage. Please measure the output at the same time every 24 hours and record the amount. 8. Turn the drain upside down and squeeze the contents of the bulb into the measuring cup. Be sure to empty the bulb as completely as possible. Flush the contents in the toilet. 9. Use the drain output log chart to record the amount of drainage twice a day or any time the bulbis full. Record the total for 24 hours for each drain you have. 10. If you have more than one drain, remember to record the drainage from each drain separately. 11. To prevent infection, do not let the stopper or top of the bottle touch the measuring cup or any other surface. 1. 2. Use one hand to squeeze all of the air from the drain. With the drain still squeezed, use your other hand to replace the top. This creates the suction necessary to remove the fluids from your body. 3. Pin the drain back on your clothing to avoid pulling it out accidently. 4. Wash your hands again. Remember to wash your hands before and after the procedure to reduce the risk of infection. Flushing the Drain: Your doctor may want the drain to be flushed once or twice daily to keep the fluid from plugging the drain. Flush the drain with 3-5 cc daily with the syringes supplied to you. FORWARD FLUSH ONLY, DO NOT ASPIRATE BACK. When to call the Interventional Radiology Department: Please call with any questions or concerns. If it is during regular office hours, please call [phone]. If it is after regular office hours, or on weekends or holidays, please call [phone] and ask to speak to the [employer] information coordinator for Interventional Radiology. XX You have received medication during your procedure to help lessen anxiety and keep you comfortable. These medications affect judgement and reaction time. We recommend that you do not drive, operate equipment, sign any important documents, or smoke unattended for 24 hours following your procedure. Because of the sedation, be careful on stairs, as you may be unsteady on your feet. You may resume your regular diet as tolerated. IV site -- slight redness, or tenderness is normal, you can use a warm compress. If tenderness and redness increases or foul drainage occurs, please contact your M. D. Revised 06/12/19 Drainage Record NAME: Date of Surgery: Date: Time: If more than one drain, which one: Drainage Amount (per drain) Total Amount (per drain; in 24 hours) Future Appointments and Orders Future Appointments and Orders Future Appointments Provider Department Dept Phone 06/03/2020 10:10 AM [facility] IR ROOM 4 Radiology at [facility] Arrive at: 3Z INTERVENTIONAL RADIOLOGY [phone] Please expect a call from a radiology nurse within 3 days of your exam, you will need to follow theinstructions given at that time. 06/03/2020 2:00 PM Hong Rosenthal MD General Surgery at [facility] Arrive at: Program Management Intern Area 4L [phone] 06/18/2020 3:00 PM Esau Rahman MD Cardiology at [facility] Arrive at: Program Management Intern Area 4A [phone] Future Orders Complete By Expires IR Drain Check/Change/Remove [[id number] Custom] 05/19/2020 07/28/2020 Process Instructions: Scheduling Instructions: Comments: Questions: Where will study be performed?: [facility] Radiology Reason for exam and clinical history: Arabella-Hepatic Abscess s/p drainage 04/28 (abscess drainage catheter located inframedial to the cholecystostomy catheter) Clinical information / sanchez questions: Exam/Procedure requested: What labs need to be collected during imaging study?: Does patient require sedation?: GA rationale: Requested Time: Date of injury if applicable: Is the patient on anticoagulant / anitplatelet therapy ?: Aspirin Clopidogrel Referral to Cardiac Rehab [FEY378 Custom] As directed Process Instructions: If no progress note charted, please enter Clinical details in comments. Scheduling Instructions: Questions: My question or request is: NSTEMI. Cardiac rehab at [facility] Referral to General Surgery [REF27 Custom] As directed Process Instructions: If no progress note charted, please enter Clinical details in comments. If you are requesting vascular access please answer the VAD questions Due to the OR limitations at the [facility], if you are considering surgery for this patient, and their BMI is greater than 50, please refer to [facility] (or a division other than [facility]). Scheduling Instructions: Questions: Are you seeking Vascular Access?: No My question or request is: Follow-up to discuss cholecystectomy. Patient is s/p perc arron tube placement, has tube study scheduled with IR for 06/03, needs appointment on this day. Referral to Home Health - at DISCHARGE [NMF0733 CPT(R)] As directed Process Instructions: Scheduling Instructions: Comments: DISCHARGE DOCUMENTATION FOR VNA SERVICES (INCLUDING THOSE PATIENTS WITH MEDICARE COVERAGE BEING DISCHARGED HOME WITH VNA SERVICES AND THOSE PATIENTS WITH MEDICARE COVERAGE WHO ARE BEING DISCHARGED HOME WITH HOSPICE SERVICES) In discussion with the attending physician, it is certified that this patient is under their care and that they, or a Nurse Practitioner, Clinical Nurse Specialist or Physician Security Systems Administrator who is working directly with them, had a face to face encounter that meets the physician face to face encounter requirements with this patient on 04/27. The encounter with the patient was in whole, or in part, for the following medical condition, whichis the primary reason for home health care services: cholecystitis s/p percutaneous cholecystostomytube In discussion with the primary medical team, it is certified that, based on their findings, the indicated services are medically necessary and appropriate for home health services. Patient Location: [address] [place] [id number] (home) Telephone Information: HOME Health Agency: [facility] [employer] PHONE: [phone] FAX: [phone] RN: Assess cardiopulmonary assessment, vital signs, medication management and effectiveness, elimination and nutrition and home safety evaluation. Arron drain care with daily flushes. OT: Please assess home safety, ADL's and IADL's and provide home health aid if indicated Start of Care Date: next 24-48 hours All VNA agencies which cover the area of patient's residence have been reviewed, either verbally janay writing, and patient/family have chosen the indicated home health care agency for home services. FOR MEDICARE ONLY: (please delete this section if not Medicare) In discussion with the attending physician, it is certified that the clinical findings support thatthis patient is homebound i.e. absences from home require considerable and taxing effort; Needs assistance of a person to the leave the home. Please note that any additional orders needs or changes will need to be obtained from this patient's PCP: Reshma Baig MD [address] [place] [address] Questions: Agency name and contact information: [facility] Patient location post discharge: home What services are requested: Registered Nurse Physical Therapy Start date: Responsible MD post discharge contact info: pcp Discharge References/Attachments None Associated attestation - Kota Gonzales MD - 05/09/2020 5:06 PM EDT Attending Staff Admission Documentation I have examined the patient myself on 05/09/2020 and reviewed all labs and studies personally. Please see Dr. Leung's documentation for details of the patient history of presentation, hospital course, and data. I have discussed, reviewed and agree with the documented history with ROS, physical findings, labs/studies, assessment and summary of management with the following additions: 79-year-old female with history of IDDM2 and aortic stenosis with cholecystitis status post percutaneous cholecystostomy tube complicated by liver fluid collection with SIS drain placement. Patient will need interval cholecystectomy when she has stabilized from cardiovascular standpoint as below. Course was complicated by A. fib with RVR, aeHFpEF, and NSTEMI. Rate controlled with amiodarone andmetoprolol. Underwent cardiac catheterization with PCI to the RCA. Anticoagulation for atrial fibrillation was complicated by GI bleed secondary to esophagitis demonstrated on EGD. Improved with pantoprazole. Patient was maintained on dual antiplatelet therapy due to recent stent. Further anticoagulation with apixaban was deferred during the stay. She will have outpatient follow-up with cardiology. Patient should continue on aspirin for 1 year. Per cardiology, she should be continued on clopidogrel for 6 weeks. At this point, it would be possible to pause her clopidogrel for a brief period of time to allow for cholecystectomy. Per cardiology, clopidogrel should then be restarted for 6 months total. Patient was discharged with drain in place. Plan for follow-up sinogram. She will be continued on Augmentin until resolution of abscess. As above, she will require interval cholecystectomy. Kota Gonzaels MD documented in this encounter Discharge Instructions * Discharge Instructions* Bobbi Fernandez RN - 04/28/2020 10:00 AM EDT Images from the original note were not included. INTERVENTIONAL RADIOLOGY ARRON DRAIN CARE INSTRUCTIONS How do I care for the drains at home? Pin your drain/s to your clothing by using a safety pin through the plastic loop on the top of the bulb. If the drain is not attached to your clothing, it may pull out from under your skin. Also, a drain usually feels more comfortable when it???s attached. To care for the drain at home, you will have to empty the drain, ???strip?? the drain tubing, and change the dressing if applicable. * See the following information on instructions on how to do this. You will go home with a dressing over the insertion site. Usually, Visiting Nurses are set up to show you how to change the dressing and care for the drain. They may teach a family member if they arewilling. The dressing needs to only be change once a week provided there is no leakage around the tube. What problems may I have with my drain? No drainage or sudden decrease in amount of drainage- This may be due to a plug in the drain. Please notify your doctor or nurse during business hours. ??? The tube accidentally falls out- If this happens, place a dry gauze dressing over the drain site and notify your doctor or nurse during business hours. ??? Increased redness, swelling, or heat around the tube insertion site- This may be a sign of infection. Take your temperature: if it is higher than 101F or 38.8C, call your doctor or nurse immediately. Otherwise, notify your doctor or nurse during business hours and keep the dressing clean and dry. How to Empty Your Drain and flush drain Note: Wash your hands thoroughly before emptying your drain(s). Unpin the drain from your clothing. 1. Turn the white stopcock so it is not parallel (in line) with the tubing. 2. Unscrew the tubing with the bag attached from stopcock. Make sure you keep everything clean. 3. Attach the syringe with sterile saline to the stopcock. 4. Re-attach the tubing with the bag to the stopcock. 5. Invert the bag and pull open the plug. 6. Have the plastic measuring cup from the hospital ready to collect and measure the drainage. Please measure the output at the same time every 24 hours and record the amount. 7. Turn the drain upside down and squeeze the contents of the bulb into the measuring cup. Be sure to empty the bag as completely as possible. Empty contents of the bag into the toilet. 8. Use the drain output log chart to record the amount of drainage twice a day or any time the bag is full. Record the total for 24 hours for each drain you have. 9. If you have more than one drain, remember to record the drainage from each drain separately. 10. To prevent infection, do not let the stopper or top of the bottle touch the measuring cup or any other surface. Always put a orthopedically impaired teacher on the end to keep clean. 11. If you drainage bags starts to have an odor, you can clean the bag after removing it from the tube. Turn the stopcock to off. Put on a orthopedically impaired teacher to the end of the stopcock to keep clean. To clean the bag, fill it with 2 parts vinegar to 3 parts water, and let it stand for 20 minutes. Then empty it out, and let it air dry. Reattach to drain and open the stopcock. When to call the Interventional Radiology Department: Please call with any questions or concerns. If it is during regular office hours, please call [phone]. If it is after regular office hours, or on weekends or holidays, please call [phone] and ask to speak to the [employer] information coordinator for Interventional Radiology. XX You have received medication during your procedure to help lessen anxiety and keep you comfortable. These medications affect judgement and reaction time. We recommend that you do not drive, operate equipment, sign any important documents, or smoke unattended for 24 hours following your procedure. Because of the sedation, be careful on stairs, as you may be unsteady on your feet. You may resume your regular diet as tolerated. IV site -- slight redness, or tenderness is normal, you can use a warm compress. If tenderness and redness increases or foul drainage occurs, please contact your M. D. Revised 06/12/19 Drainage Record NAME: Date of Surgery: Date: Time: If more than one drain, which one: Drainage Amount (per drain) Total Amount (per drain; in 24 hours) INTERVENTIONAL RADIOLOGY ABSCESS DRAIN CARE INSTRUCTIONS Drains help to keep fluid from collecting by removing the extra blood and fluid from under the skinor from an abscess within the body. A drain is temporary. It stays in place until the drainage has slowed down or stopped. Your Provider will decide when each drain should be removed. This is usuallyafter each drain has 30cc or less in 24 hours for 2-3 days in a row. You will then be scheduled for what is called a Sinogram to check and see if the fluid collection has gotten smaller. How do I care for the drains at home? Pin your drain/s to your clothing by using a safety pin through the plastic loop on the top of the bulb. If the drain is not attached to your clothing, it may pull out from under your skin. Also, a drain usually feels more comfortable when it???s attached. To care for the drain at home, you will have to empty the drain, ???strip?? the drain tubing, and change the dressing if applicable. * See the following information on instructions on how to do this. You will go home with a dressing over the insertion site. Usually, Visiting Nurses are set up to show you how to change the dressing and care for the drain. They may teach a family member if they arewilling. The dressing needs to only be change once a week provided there is no leakage around the tube. What problems may I have with my drain? The bulb is not compressed- The bulb may not be squeezed tightly enough, the plug may not be closed securely, or the tube has slipped out a bit and is leaking. Follow the instructions on how to empty the drain. If the bulb remains expanded, then notify your doctor or nurse during business hours. ??? No drainage or sudden decrease in amount of drainage- This may be due to a plug in the drain. Please notify your doctor or nurse during business hours. ??? The tube accidentally falls out- If this happens, place a dry gauze dressing over the drain site and notify your doctor or nurse during business hours. ??? Increased redness, swelling, or heat around the tube insertion site- This may be a sign of infection. Take your temperature: if it is higher than 101F or 38.8C, call your doctor or nurse immediately. Otherwise, notify your doctor or nurse during business hours and keep the dressing clean and dry. How to Empty Your Drain and flush drain Note: Wash your hands thoroughly before emptying your drain(s). Unpin the drain from your clothing. 1. Turn the white stopcock so it is not parallel (in line) with the tubing. 2. Unscrew the tubing with the bulb attached from stopcock. Make sure you keep everything clean. 3. Attach the syringe with sterile saline to the stopcock. 4. Inject saline per MD order, 3-5 cc's. Forward flush only, do not aspirate back. 5. Re-attach the tubing with the bulb to the stopcock. 6. Invert the bulb and pull open the plug. 7. Have the plastic measuring cup from the hospital ready to collect and measure the drainage. Please measure the output at the same time every 24 hours and record the amount. 8. Turn the drain upside down and squeeze the contents of the bulb into the measuring cup. Be sure to empty the bulb as completely as possible. Flush the contents in the toilet. 9. Use the drain output log chart to record the amount of drainage twice a day or any time the bulbis full. Record the total for 24 hours for each drain you have. 10. If you have more than one drain, remember to record the drainage from each drain separately. 11. To prevent infection, do not let the stopper or top of the bottle touch the measuring cup or any other surface. 1. 2. Use one hand to squeeze all of the air from the drain. With the drain still squeezed, use your other hand to replace the top. This creates the suction necessary to remove the fluids from your body. 3. Pin the drain back on your clothing to avoid pulling it out accidently. 4. Wash your hands again. Remember to wash your hands before and after the procedure to reduce the risk of infection. Flushing the Drain: Your doctor may want the drain to be flushed once or twice daily to keep the fluid from plugging the drain. Flush the drain with 3-5 cc daily with the syringes supplied to you. FORWARD FLUSH ONLY, DO NOT ASPIRATE BACK. When to call the Interventional Radiology Department: Please call with any questions or concerns. If it is during regular office hours, please call [phone]. If it is after regular office hours, or on weekends or holidays, please call [phone] and ask to speak to the [employer] information coordinator for Interventional Radiology. XX You have received medication during your procedure to help lessen anxiety and keep you comfortable. These medications affect judgement and reaction time. We recommend that you do not drive, operate equipment, sign any important documents, or smoke unattended for 24 hours following your procedure. Because of the sedation, be careful on stairs, as you may be unsteady on your feet. You may resume your regular diet as tolerated. IV site -- slight redness, or tenderness is normal, you can use a warm compress. If tenderness and redness increases or foul drainage occurs, please contact your M. D. Revised 06/12/19 Drainage Record NAME: Date of Surgery: Date: Time: If more than one drain, which one: Drainage Amount (per drain) Total Amount (per drain; in 24 hours) * Patient Instructions* Davon Leung MD - 04/26/2020 12:43 PM EDT Instructions on Discharge to Home Why you were hospitalized for acute cholecystitis. While in the hospital you went into atrial fibrillation with rapid ventricular response. You were found to have moderate aortic stenosis as well as a blockage in your right coronary artery, a stent was placed in this artery. You had a percutaneous c holecystostomy tube place in your gallbladder to drain the infection. You will go home with this drain. You will need to follow-up with general surgery clinic in about 6 weeks to discuss surgery for yourgallbladder. You have a study on the percutaneous cholecystostomy tube scheduled in May that will help general surgery in this decision. Call your doctor or seek medical attention if you develop the following - chest pain, shortness of breath, feeling dizzy upon standing, passing out, diarrhea, constipation lasting longer than 2 days,fevers (temperature over 100.3), chills, abdominal pain, vomiting, difficulty or discomfort when urinating, bloody or black bowel movements, or any other acute or concerning symptom. Activity level - No restrictions Diet - No change in previous diet Driving - As before hospitalization Shower/Bath - Shower only and pat dry the drain site Wound Care - None Home Oxygen therapy - Not necessary Your Discharge Medication List For your abnormal heart rhythm (atrial fibrillation) - Amiodarone 200mg TWICE a DAY - Metoprolol Succinate 300mg ONCE a DAY - Losartan 25mg (smaller dose than before!) Once a DAY For your coronary artery disease (recent stent placed in heart) - Asprin 81mg ONCE a DAY - Clopidogrel (plavix) 75mg Once a DAY For your esophagitis, bleeding, and dark stool - Pantoprazole 40mg TWICE a DAY For your infection (liver and gall bladder) - Augmentin 875/125 TWICE a DAY; until two days after your tubes are removed To Do: Cholecystotomy drain: Does not need to be flushed Abscess drain (SIS, bulb drain): Please flush twice a day with normal saline flushes - The visiting nursing team will help you with this as well Follow-up: Future Appointments Date Time Provider Department Center 05/19/2020 10:30 AM [facility] IR ROOM 3 IR [facility] Rad 06/03/2020 10:10 AM [facility] IR ROOM 4 IR [facility] Rad 06/03/2020 2:00 PM Hong Rosenthal MD [facility] SURG [facility] You have a follow-up with cardiology scheduled for May [address] Galindo in [facility]. Your Primary Care Provider: Reshma Baig MD [phone] For questions regarding this document or issues relating to this hospitalization on the Medical Service, please contact your inpatient physician through the [facility] Tax Representative . Issues afterhours and on weekends will be handled by the Hospitalist staff on-call. documented in this encounter Medications at Time [...] as of this encounter Progress Notes * Kota Gonzales MD - 05/08/2020 1:35 PM EDT Hospital Medicine - Attending Day of Discharge Documentation Discharge diagnosis Active Hospital Problems Diagnosis ??? 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 Aortic stenosis - moderate ??? Atrial fibrillation--- paroxysmal ??? Cholecystitis Resolved Hospital Problems No resolved problems to display. Secondary Issues Active Non-Hospital Problems Diagnosis ??? Type 2 diabetes mellitus ??? Hypertension ??? Hyperlipidemia ??? Arthritis ??? Actinic keratosis ??? Seborrheic keratosis I have personally seen and examined the patient and they are ready for discharge. I spent >30 minutes (Day of Discharge Code 19849) involved in the final examination of the patient, discussion of the hospital stay, instructions for continuing care to all relevant caregivers, and preparation of discharge records, prescriptions and referral forms. Plans ? Discharge to home with services ? Follow-up scheduled with PCP, IR, general surgery ? Please see the Discharge Summary for complete details of any medication changes and additional plans. Kota Gonzales MD * Kristi Gallegos RN - 05/08/2020 1:25 PM EDTSummary: Discharge Note Patient was discharged via the main entrance with her son to home. [facility] planned for home care. Patient educated on drain care via teach back method. Patient was able to demonstrate proper flushing of SIS drain and verbalize how often she will be flushing/ draining both SIS and arron drain. Patient provided with supplies to flush her drain for the weekend until home nurses can provide patient with supplies. Dressing changed on both drains before discharge. AVS reviewed with patient including medications and drain care. Questions answered. Medications sent to [facility] in [facility]. * Davon Leung MD - 05/08/2020 7:56 AM EDT [facility] Red Team Inpatient Progress Note ID: Shannan Chaudhary is a 79 y.o. year old female with past medical history of IDDM last A1c 8.5 (03/2020), HTN, HLD, moderate-severe admitted on 04/19/2020 ( Hospital Day 19 days ) for cholecystitis. Active Hospital Problems Diagnosis ??? 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 Aortic stenosis - moderate ??? Atrial fibrillation--- paroxysmal ??? Cholecystitis Resolved Hospital Problems No resolved problems to display. Interval History: - Hemoglobin stable at 8.8 this AM, same as yesterday - On DAPT for 48hours - Continue Augmentin 875/125 PO BID for 48 hours - NAEO. This AM endorsing no ongoing pain; tenderness in RUQ that improves with tylenol. Meds: ? ? insulin lispro 1-4 Units Subcutaneous 4 Times Daily AC & HS ??? aspirin 81 mg Oral Daily ??? pantoprazole EC 40 mg Oral BID ??? sodium chloride 0.9 % (flush) 5 mL Intravenous BID ??? losartan 25 mg Oral Daily ??? melatonin 6 mg Oral Nightly ??? amoxicillin-clavulanate 1 tablet Oral BID ??? metoprolol succinate XL 300 mg Oral Nightly ??? rosuvastatin 20 mg Oral QPM ??? AMIOdarone 200 mg Oral BID ??? clopidogreL 75 mg Oral Daily ??? acetaminophen 1,000 mg Oral Q8H ??? polyethylene glycoL (MIRALAX) oral powder 17 g Oral Daily ??? senna-docusate 2 tablet Oral BID ??? sodium chloride 0.9 % (flush) 5 mL Intravenous BID ??? insulin glargine 25 Units Subcutaneous Nightly PRN medications sodium chloride 0.9 % (flush), lidocaine, labetaloL, bisacodyl EC, sodium chloride 0.9 % (flush), oxyCODONE, glucose 40% oral geL OR dextrose 10% OR glucagon (human recombinant) Current Facility-Administered Medications Medication Dose Route Frequency ??? sodium chloride 0.9 % (flush) flush 5-20 mL 5-20 mL Intravenous Q1 Min PRN ??? lidocaine (XYLOCAINE) 10 mg/mL (1 %) injection 3 mg 0.3 mL Subcutaneous Once PRN ??? labetalol (NORMODYNE,TRANDATE) injection 20 mg 20 mg Intravenous Q2H PRN ??? bisacodyl EC (Dulcolax) tablet 10 mg 10 mg Oral Daily PRN ??? sodium chloride 0.9 % (flush) flush 5-20 mL 5-20 mL Intravenous Q1 Min PRN ??? oxyCODONE (Roxicodone) tablet 5 mg 5 mg Oral Q4H PRN ??? glucose (GLUTOSE) 40% oral geL 15-30 g Buccal Q30 Min PRN Or ??? dextrose 10% infusion 250 mL Intravenous Q30 Min PRN Or ??? glucagon (human recombinant) injection SolR 1 mg 1 mg Intramuscular Q30 Min PRN Physical Exam: Last value Range last 24 hrs Temperature Temp: 36.7 ??C (98 ??F) Temp: [36.5 ??C (97.7 ??F)-36.9 ??C (98.4 ??F)] Heart Rate Heart Rate: 59 Heart Rate: [59-63] Blood Pressure BP: 124/57 BP: (84-168)/(39-59) Respiratory Rate Resp: 18 Resp: [18] SpO2 SpO2: 97 % SpO2: [96 %-98 %] Intake/Output Summary (Last 24 hours) at 05/08/2020 0757 Last data filed at 05/08/2020 0542 Gross per 24 hour Intake 825 ml Output 930 ml Net -105 ml No data found. Admit wt: 86.18 kg Gen: AOx3, NAD on RA. Appears pale. HEENT: sclera clear, anicteric. Neck supple. CV: rrr, nl s1/s2 without m/r/g. III/ holosystolic murmur. Resp: lungs clear to auscultation b/l without rales or rhonchi, good inspiratory effort. GI: +bs, soft, nt/nd. Cholecystectomy drain in place with yellow-green clear fluid, SIS drain with small vol dark serosanguinous fluid. Wound site dressed, minimally tender. No abd pain Skin: warm, well-perfused, no LE edema, no rash. Neuro: grossly nonfocal exam, spontaneously moves all extremities Musculoskeletal: no joint swelling or pain Labs: Recent Labs 05/08/20 0546 05/07/20 0645 05/06/20 1736 WBC 8.6 7.8 9.7* HGB 8.8* 8.8* 9.7* HCT 26.7* 26.4* 29.8* PLATELET 351 360* 427* Recent Labs 05/08/20 0546 05/07/20 0645 05/06/20 0525 NA 136 137 137 K 4.1 4.1 4.2 CL 107 105 106 CO2 21* 21* 21* BUN 20* 18 24* CREATININE 0.85 0.85 0.85 GLUCOSE 152 145 136 Recent Labs 05/08/20 0546 05/07/20 0645 05/06/20 0525 CALCIUM 8.9 8.9 8.7 MAGNESIUM 0.79 0.82 0.84 Recent Labs 05/04/20 0518 05/03/20 0508 05/02/20 0613 AST 12 7 9 ALT 11 8 10 ALKPHOS 133* 136* 130* BILITOT 0.3 0.3 0.4 Microbiology: 04/22 cholecystic fluid Raoultella ornithinolytica (klebsiella ornithinolytica) VITEK 2 METHOD Amikacin Sensitive Ampicillin + Sulbactam Sensitive Aztreonam Sensitive Ceftazidime <=1 Sensitive Ceftriaxone Sensitive Ertapenem Sensitive Gentamicin Sensitive Levofloxacin Sensitive1 Meropenem <=0.25 Sensitive Piperacillin/Tazobactam <=4 Sensitive Tetracycline Sensitive Tigecycline ?? Sensitive Tobramycin Sensitive Trimethoprim/Sulfa Sensitive Liver Fluid Collection; Culture 04/28 Body Fluid Culture, Aerobic [[id number]] (Abnormal) Collected: 04/28/20 1000 Lab Status: Preliminary result Specimen: Fluid Updated: 04/29/20 1316 Body Fluid Culture One colony of Raoultella ornithinolytica (Klebsiella ornithinolytica)Abnormal Gram Stain --Abnormal Few Neutrophils seen No microorganisms seen. Abnormal Assessment and Plan: Shannan Chaudhary is a 79 y.o. year old female with past medical history of with history of IDDM last A1c 8.5 (03/2020), HTN, HLD, moderate-severe admitted on 04/19/2020 ( Hospital Day 19 days ) presenting with cholecystitis, now s/p percutaneous cholecystostomy and percutaneous liver abscess SIS drain placement. Ms. Chaudhary is medically ready for discharge. She has follow-up with General Surgery, IR, and cardiology. # esophagitis, resolving - appreciate GI recs - Discharge on PO PPI BID - Continue DAPT, hold apixaban # FORREST, possibly 2/2 diuresis, improving - Discharge on losartan 25mg QD; Home dose 100mg QD # liver abscess (perhaps partially treated) vs infected fluid collection, s/p SIS drain (04/28) # acute cholecystitis, s/p perq cholecystostomy (04/22) Liver s/p SIS 04/28 - Culture klebsiella Gallbladder s/p perq 04/22 - Culture klebsiella - arron tube growing klebsiella - cholecystectomy in 6 weeks - ID appreciated - pip-tazo from 04/19-04/26, 04/28-3; - Augmenting 875/125 PO BID to be continued until 48hours after liver abscess SIS drain is removed ?? # afib rvr, rate and rhythm controlled now in sinus # cardiogenic shock, resolved # pulmonary edema 2/2 afib-rvr, resolving # HTN # hypokalemia # QTc prolongation - DAPT as above; HOLD apxaban - c/w amiodarone 200mg BID for 1 month per cards - c/w metoprolol 300mg qday ?? # , moderate-severe # 2v CAD, s/p RCA stents on 04/21 # NSTEMI, likely type II - demand - AC plan as above - no surgical intervention at this point - pt remains largely asymptomatic - metoprolol as above - rosuvastatin 20mg qhs - c/w losartan 25mg; home dose 100mg # Chronic Medical Conditions: # IDDM, A1c 8.5 - glargine 25 qhs - meal-associated insulin - resume home management on discharge ?? # Routine Diet: Daily Healthy Menu Choices/Cardiac diet ([facility]-Diet) CHO cont DVT ppx: SCDs Fluids: PO Access: PIV Dispo: Home today; with VNA Code: Full Code Davon Leung MD 05/08/2020 PGY-2, Internal Medicine Red Team - Pager [phone] Associated attestation - Kota Gonzales MD - 05/09/2020 12:40 PM EDT Attending Staff Admission Documentation I have examined the patient myself on 05/09/2020 and reviewed all labs and studies personally. Please see Dr. Leung's documentation for details of the patient history of presentation, hospital course, and data. I have discussed, reviewed and agree with the documented history with ROS, physical findings, labs/studies, assessment and summary of management with the following additions: 79-year-old female with history of IDDM2 and aortic stenosis with cholecystitis status post percutaneous cholecystostomy tube complicated by liver fluid collection with SIS drain placement. Patient will need interval cholecystectomy when she has stabilized from cardiovascular standpoint as below. Course was complicated by A. fib with RVR, aeHFpEF, and NSTEMI. Rate controlled with amiodarone andmetoprolol. Underwent cardiac catheterization with PCI to the RCA. Anticoagulation for atrial fibrillation was complicated by GI bleed secondary to esophagitis demonstrated on EGD. Improved with pantoprazole. Patient was maintained on dual antiplatelet therapy due to recent stent. Further anticoagulation with apixaban was deferred during the stay. She will have outpatient follow-up with cardiology. Patient should continue on aspirin for 1 year. Per cardiology, she should be continued on clopidogrel for 6 weeks. At this point, it would be possible to pause her clopidogrel for a brief period of time to allow for cholecystectomy. Per cardiology, clopidogrel should then be restarted for 6 months total. Patient was discharged with drain in place. Plan for follow-up sinogram. She will be continued on Augmentin until resolution of abscess. As above, she will require interval cholecystectomy. Kota Gonzales MD * Brooke Walters RN - 05/07/2020 4:57 PM EDT Chart reviewed, care reviewed with primary team and at interdisciplinary rounds. Pt should be medically ready for discharge to home within the next 24-48 hours. She will have assist from family as well as [place] JOHANSEN. Orders routed/pended. She has supports in place to access the necessary care and or follow up after discharge.. Will be transported via family. IMM signed. This plan was formulated with input from patient, family and team. All are in agreement with plan. * Jeevan Black MD - 05/07/2020 2:42 PM EDT Acute Care Surgery Progress Note ID: Shannan Chaudhary is a 79 y.o. female with PMH IDDM and reported aortic stenosis with valve area 0.8 (records unavailable in [facility] but reviewed by [facility] referring MD) who was admitted in transfer with cholecystitis, now s/p percutaneous cholecystostomy tube Subjective/24 hour events: - No leukocytosis today. - mild RUQ pain related to drain. - Tolerating PO Physical Exam: Last value Range last 24 hrs Temperature Temp: 36.5 ??C (97.7 ??F) Temp: [36.4 ??C (97.5 ??F)-36.9 ??C (98.5 ??F)] Heart Rate Heart Rate: 63 Heart Rate: [54-65] Blood Pressure BP: 143/57 BP: (122-158)/(44-67) BP (Arterial Line): -- Respiratory Rate Resp: 18 Resp: [16-24] SpO2 SpO2: 97 % SpO2: [94 %-99 %] Physical Exam: General: NAD, resting comfortably, pleasant, conversant Neuro: grossly intact, nonfocal, moving all four extremities spontaneously HEENT: NCAT, anicteric sclera CVS: irregularly irregular Pulm: non-labored breathing Abd: soft, nondistended, minimally tender. Perc arron tube site with no erythema or drainage and bile in bag. Abscess drain with minimal fluid. Skin: warm, dry Intake/Output Summary (Last 24 hours) at 05/07/2020 1442 Last data filed at 05/07/2020 1124 Gross per 24 hour Intake 961 ml Output 1120 ml Net -159 ml Labs: Recent Labs 05/07/20 0645 05/06/20 1736 05/06/20 0525 WBC 7.8 9.7* 8.2 HGB 8.8* 9.7* 7.0* HCT 26.4* 29.8* 22.1* PLATELET 360* 427* 364* Recent Labs 05/07/20 0645 05/06/20 0525 05/05/20 0734 NA 137 137 137 K 4.1 4.2 4.4 CL 105 106 105 CO2 21* 21* 21* BUN 18 24* 28* CREATININE 0.85 0.85 0.74 GLUCOSE 145 136 157 No results for input(s): PT, INR in the last 72 hours. Invalid input(s): PTT Assessment/Plan: 79y F w/ severe (valve area 0.8) transferred to [facility] with acute cholecystitis. Unable to performcholecystectomy 2/2 recent PCI with two stents requiring DAPT x 6 weeks. Now s/p cholecystostomy tube and IR placed drain into arabella-hepatic abscess. WBC continues to downtrending and her pain is much improved. EGD without active bleed, but did show esophagitis. From a cholecystitis stand point, sheappears to have adequate source control, is asymptomatic and cleared for discharge. Defer to IR for drain study. Follow up with general surgery with cholecystostomy tube study in 6 weeks from placement. General surgery will sign off. Please page [phone] with any questions or concerns. Jeevan Black MD General Surgery 05/07/2020 * Wilner Esparza MD - 05/07/2020 10:16 AM EDT [facility] Medicine - Red Team Inpatient Progress Note ID: Shannan Chaudhary is a 79 y.o. year old female with past medical history of IDDM last A1c 8.5 (03/2020), HTN, HLD, moderate-severe admitted on 04/19/2020 ( Hospital Day 18 days ) for cholecystitis. Active Hospital Problems Diagnosis ??? 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 Aortic stenosis - moderate ??? Atrial fibrillation--- paroxysmal ??? Cholecystitis Resolved Hospital Problems No resolved problems to display. Interval History: - AM hgb 8.8 after 1u prbc yesterday - restarted on DAPT - daily CBC - two BMs yesterday with one smaller one in AM, unchanged in color - pt able to ambulate yesterday around the unit - pt son came to help her out with paying her home bills - yesterday SIS drain had difficulty draining and opening. Pt with some mild tenderness at site. - otherwise no complaints of chest pain, abdominal pain, or pleurisy - per ID: Augmenting 875/125 PO BID to be continued until 48hours after liver abscess SIS drain is removed. Follow-up with IR scheduled 05/19 Meds: ??? aspirin 81 mg Oral Daily ??? pantoprazole EC 40 mg Oral BID ??? sodium chloride 0.9 % (flush) 5 mL Intravenous BID ??? losartan 25 mg Oral Daily ??? melatonin 6 mg Oral Nightly ??? amoxicillin-clavulanate 1 tablet Oral BID ??? metoprolol succinate XL 300 mg Oral Nightly ??? rosuvastatin 20 mg Oral QPM ??? AMIOdarone 200 mg Oral BID ??? clopidogreL 75 mg Oral Daily ??? acetaminophen 1,000 mg Oral Q8H ??? polyethylene glycoL (MIRALAX) oral powder 17 g Oral Daily ??? senna-docusate 2 tablet Oral BID ??? sodium chloride 0.9 % (flush) 5 mL Intravenous BID ??? insulin lispro 1-4 Units Subcutaneous Q4H BASIL ??? insulin glargine 25 Units Subcutaneous Nightly PRN medications sodium chloride 0.9 % (flush), lidocaine, labetaloL, bisacodyl EC, sodium chloride 0.9 % (flush), oxyCODONE, glucose 40% oral geL OR dextrose 10% OR glucagon (human recombinant) Current Facility-Administered Medications Medication Dose Route Frequency ??? sodium chloride 0.9 % (flush) flush 5-20 mL 5-20 mL Intravenous Q1 Min PRN ??? lidocaine (XYLOCAINE) 10 mg/mL (1 %) injection 3 mg 0.3 mL Subcutaneous Once PRN ??? labetalol (NORMODYNE,TRANDATE) injection 20 mg 20 mg Intravenous Q2H PRN ??? bisacodyl EC (Dulcolax) tablet 10 mg 10 mg Oral Daily PRN ??? sodium chloride 0.9 % (flush) flush 5-20 mL 5-20 mL Intravenous Q1 Min PRN ??? oxyCODONE (Roxicodone) tablet 5 mg 5 mg Oral Q4H PRN ??? glucose (GLUTOSE) 40% oral geL 15-30 g Buccal Q30 Min PRN Or ??? dextrose 10% infusion 250 mL Intravenous Q30 Min PRN Or ??? glucagon (human recombinant) injection SolR 1 mg 1 mg Intramuscular Q30 Min PRN Physical Exam: Last value Range last 24 hrs Temperature Temp: 36.9 ??C (98.5 ??F) Temp: [36.4 ??C (97.5 ??F)-36.9 ??C (98.5 ??F)] Heart Rate Heart Rate: 54 Heart Rate: [54-65] Blood Pressure BP: 147/49 BP: (120-158)/(44-73) Respiratory Rate Resp: 16 Resp: [16-24] SpO2 SpO2: 96 % SpO2: [94 %-99 %] Intake/Output Summary (Last 24 hours) at 05/07/2020 1016 Last data filed at 05/07/2020 1005 Gross per 24 hour Intake 911 ml Output 1321 ml Net -410 ml No data found. Admit wt: 86.18 kg Gen: AOx3, NAD on RA. Appears pale. HEENT: sclera clear, anicteric. Neck supple. CV: rrr, nl s1/s2 without m/r/g. III/ holosystolic murmur. Resp: lungs clear to auscultation b/l without rales or rhonchi, good inspiratory effort. GI: +bs, soft, nt/nd. Cholecystectomy drain in place with yellow-green clear fluid, SIS drain with small vol dark serosanguinous fluid. Wound site dressed, minimally tender. No abd pain Skin: warm, well-perfused, no LE edema, no rash. Neuro: grossly nonfocal exam, spontaneously moves all extremities Musculoskeletal: no joint swelling or pain Labs: Recent Labs 05/07/20 0645 05/06/20 1736 05/06/20 0525 WBC 7.8 9.7* 8.2 HGB 8.8* 9.7* 7.0* HCT 26.4* 29.8* 22.1* PLATELET 360* 427* 364* Recent Labs 05/07/20 0645 05/06/20 0525 05/05/20 0734 NA 137 137 137 K 4.1 4.2 4.4 CL 105 106 105 CO2 21* 21* 21* BUN 18 24* 28* CREATININE 0.85 0.85 0.74 GLUCOSE 145 136 157 Recent Labs 05/07/20 0645 05/06/20 0525 05/05/20 0734 05/05/20 0529 CALCIUM 8.9 8.7 8.5 -- MAGNESIUM 0.82 0.84 -- 0.81 Recent Labs 05/04/20 0518 05/03/20 0508 05/02/20 0613 AST 12 7 9 ALT 11 8 10 ALKPHOS 133* 136* 130* BILITOT 0.3 0.3 0.4 Microbiology: 04/22 cholecystic fluid Raoultella ornithinolytica (klebsiella ornithinolytica) VITEK 2 METHOD Amikacin Sensitive Ampicillin + Sulbactam Sensitive Aztreonam Sensitive Ceftazidime <=1 Sensitive Ceftriaxone Sensitive Ertapenem Sensitive Gentamicin Sensitive Levofloxacin Sensitive1 Meropenem <=0.25 Sensitive Piperacillin/Tazobactam <=4 Sensitive Tetracycline Sensitive Tigecycline ?? Sensitive Tobramycin Sensitive Trimethoprim/Sulfa Sensitive Liver Fluid Collection; Culture 04/28 Body Fluid Culture, Aerobic [[id number]] (Abnormal) Collected: 04/28/20 1000 Lab Status: Preliminary result Specimen: Fluid Updated: 04/29/20 1316 Body Fluid Culture One colony of Raoultella ornithinolytica (Klebsiella ornithinolytica)Abnormal Gram Stain --Abnormal Few Neutrophils seen No microorganisms seen. Abnormal Assessment and Plan: Shannan Chaudhary is a 79 y.o. year old female with past medical history of with history of IDDM last A1c 8.5 (03/2020), HTN, HLD, moderate-severe admitted on 04/19/2020 ( Hospital Day 18 days ) presenting with cholecystitis, now s/p percutaneous cholecystostomy and percutaneous liver abscess SIS drain placement. Yesterday pt received 1u PRBC with good response in hemoglobin, today with improvement in her BUN suggesting a slowing of her UGIB. Will continue to keep on PPI BID PO and monitor daily CBC and continue on DAPT and hold apixaban. There do not appear to be other sources of bleeding, including the JPdrain. Leukocytosis on Augmentin is stable; given that, it seems we have source control. Duration of abx will be for 2 days after SIS drain is removed. Pt remains in normal sinus on metoprolol and [id number] BID (end 05/22). AC plan to DAPT until periprocedurally (around possible cholecystectomy), then probably apixaban and plavix (this may change pending cardiology in the outpatient setting) # esophagitis, resolving - appreciate GI recs - PO PPI BID - hold apixaban, will discuss with cardiology today timing of restart - DAPT given risks of in-stent thrombosis - T+S, tfx > 7 # FORREST, possibly 2/2 diuresis, improving - on losartan 25mg QD; Home dose 100mg QD # liver abscess (perhaps partially treated) vs infected fluid collection, s/p SIS drain (04/28) # acute cholecystitis, s/p perq cholecystostomy (04/22) Liver s/p SIS 04/28 - Culture klebsiella Gallbladder s/p perq 04/22 - Culture klebsiella - arron tube growing klebsiella - cholecystectomy in 6 weeks - ID appreciated - monitor daily CBC, BMP, LFTs - pip-tazo from 04/19-04/26, 04/28-3; - Augmenting 875/125 PO BID to be continued until 48hours after liver abscess SIS drain is removed ?? # afib rvr, rate and rhythm controlled now in sinus # cardiogenic shock, resolved # pulmonary edema 2/2 afib-rvr, resolving # HTN # hypokalemia # QTc prolongation - apixaban 5mg BID and DAPT as above - c/w amiodarone 200mg BID for 1 month per cards - c/w metoprolol 300mg qday - monitor vitals as above - strict I/O's - daily weights ?? # , moderate-severe # 2v CAD, s/p RCA stents on 04/21 # NSTEMI, likely type II - demand - AC plan as above - metoprolol as above - rosuvastatin 20mg qhs - hold amlo in BP - holding PO lasix today - c/w losartan 25mg; home dose 100mg - no surgical intervention at this point - pt remains largely asymptomatic ?? # Chronic Medical Conditions: # IDDM, A1c 8.5 - glargine 25 qhs - meal-associated insulin ?? # Routine Diet: Daily Healthy Menu Choices/Cardiac diet ([facility]-Diet) CHO cont DVT ppx: SCDs Fluids: PO Access: PIV Dispo: pending Code: Full Code Wilner Esparza MD 05/07/2020 PGY-1, Internal Medicine Red Team - Pager [phone] Associated attestation - Milagros Velazquez MD - 05/08/2020 10:15 AM EDT Attending Attestation Please see Dr Esparza's note for details of the patient history of presentation and data. I have discussed, reviewed and agree with the documented History, Physical findings, Assessment and Plan of care. I have examined the patient myself and personally reviewed all studies. In addition, I certify thatI am a [facility] credentialed attending provider with admitting privileges and that the patient meets or has met medical necessity to require an inpatient IPI level of care meeting a minimum of two midnights or is on the [facility] inpatient only procedure list (status C) due to: Hepatic abscess secondary to cholecystitis Seen on 05/07 EGD showed esophagitis which is likely source of melena. PPI bid. Still with some melena which may be from previous bleed but held off on restarting eliquis. If remains stable will restart eliquis tomorrow (on plavix). we discussed with GI and cardiology. Plan DAPT rather then eliquis for now. had overzealous response to 1 unit PRBC so may not have been as low as 7. Would consider switch from DAPT to plavix/apixaban (apixaban instead of aspirin). As outpatient when clinically stable * Wilner Esparza MD - 05/06/2020 7:48 AM EDT [facility] - Red Team Inpatient Progress Note ID: Shannan Chaudhary is a 79 y.o. year old female with past medical history of IDDM last A1c 8.5 (03/2020), HTN, HLD, moderate-severe admitted on 04/19/2020 ( Hospital Day 17 days ) for cholecystitis. Active Hospital Problems Diagnosis ??? 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 Aortic stenosis - moderate ??? Atrial fibrillation--- paroxysmal ??? Cholecystitis Resolved Hospital Problems No resolved problems to display. Interval History: - remains on Plavix only for AC, as well as PO PPI BID - hgb 7.0 today; T+S not active - q8h CBC with f/u in afternoon - two BMs yesterday, more formed and without darker melenic quality - pt is concerned about being able to pay her bills at home given length of hospitalization and growing weaker and more deconditioned - otherwise no complaints of chest pain, abdominal pain, or pleurisy - per ID: Augmenting 875/125 PO BID to be continued until 48hours after liver abscess SIS drain is removed. Follow-up with IR scheduled 05/19 Meds: ??? pantoprazole EC 40 mg Oral BID ??? sodium chloride 0.9 % (flush) 5 mL Intravenous BID ??? losartan 25 mg Oral Daily ??? melatonin 6 mg Oral Nightly ??? amoxicillin-clavulanate 1 tablet Oral BID ??? metoprolol succinate XL 300 mg Oral Nightly ??? rosuvastatin 20 mg Oral QPM ??? AMIOdarone 200 mg Oral BID ??? clopidogreL 75 mg Oral Daily ??? acetaminophen 1,000 mg Oral Q8H ??? polyethylene glycoL (MIRALAX) oral powder 17 g Oral Daily ??? senna-docusate 2 tablet Oral BID ??? sodium chloride 0.9 % (flush) 5 mL Intravenous BID ??? insulin lispro 1-4 Units Subcutaneous Q4H BASIL ??? insulin glargine 25 Units Subcutaneous Nightly PRN medications sodium chloride 0.9 % (flush), lidocaine, labetaloL, bisacodyl EC, sodium chloride 0.9 % (flush), oxyCODONE, glucose 40% oral geL OR dextrose 10% OR glucagon (human recombinant) Current Facility-Administered Medications Medication Dose Route Frequency ??? sodium chloride 0.9 % (flush) flush 5-20 mL 5-20 mL Intravenous Q1 Min PRN ??? lidocaine (XYLOCAINE) 10 mg/mL (1 %) injection 3 mg 0.3 mL Subcutaneous Once PRN ??? labetalol (NORMODYNE,TRANDATE) injection 20 mg 20 mg Intravenous Q2H PRN ??? bisacodyl EC (Dulcolax) tablet 10 mg 10 mg Oral Daily PRN ??? sodium chloride 0.9 % (flush) flush 5-20 mL 5-20 mL Intravenous Q1 Min PRN ??? oxyCODONE (Roxicodone) tablet 5 mg 5 mg Oral Q4H PRN ??? glucose (GLUTOSE) 40% oral geL 15-30 g Buccal Q30 Min PRN Or ??? dextrose 10% infusion 250 mL Intravenous Q30 Min PRN Or ??? glucagon (human recombinant) injection SolR 1 mg 1 mg Intramuscular Q30 Min PRN Physical Exam: Last value Range last 24 hrs Temperature Temp: 36.6 ??C (97.9 ??F) Temp: [36.6 ??C (97.9 ??F)-37.2 ??C (98.9 ??F)] Heart Rate Heart Rate: 61 Heart Rate: [61] Blood Pressure BP: 135/50 BP: (127-164)/(43-60) Respiratory Rate Resp: 16 Resp: [16-20] SpO2 SpO2: 96 % SpO2: [96 %-97 %] Intake/Output Summary (Last 24 hours) at 05/06/2020 0748 Last data filed at 05/06/2020 0700 Gross per 24 hour Intake 915 ml Output 1610.5 ml Net -695.5 ml No data found. Admit wt: 86.18 kg Gen: AOx3, NAD on RA. Appears pale. HEENT: sclera clear, anicteric. Neck supple. CV: rrr, nl s1/s2 without m/r/g. III/ holosystolic murmur. Resp: lungs clear to auscultation b/l without rales or rhonchi, good inspiratory effort. GI: +bs, soft, nt/nd. Cholecystectomy drain in place with yellow-green clear fluid, SIS drain with small vol dark serosanguinous fluid. Wound site dressed, minimally tender. No abd pain Skin: warm, well-perfused, no LE edema, no rash. Neuro: grossly nonfocal exam, spontaneously moves all extremities Musculoskeletal: no joint swelling or pain Labs: Recent Labs 05/06/20 0525 05/05/20 1413 05/05/20 0734 WBC 8.2 9.3 9.1 HGB 7.0* 7.7* 7.6* HCT 22.1* 24.3* 23.6* PLATELET 364* 386* 386* Recent Labs 05/06/20 0525 05/05/20 0734 05/04/20 0518 NA 137 137 136 K 4.2 4.4 4.3 CL 106 105 105 CO2 21* 21* 20* BUN 24* 28* 33* CREATININE 0.85 0.74 0.92 GLUCOSE 136 157 151 Recent Labs 05/06/20 0525 05/05/20 0734 05/05/20 0529 05/04/20 0518 CALCIUM 8.7 8.5 -- 8.9 MAGNESIUM 0.84 -- 0.81 0.97 Recent Labs 05/04/20 0518 05/03/20 0508 05/02/20 0613 AST 12 7 9 ALT 11 8 10 ALKPHOS 133* 136* 130* BILITOT 0.3 0.3 0.4 Microbiology: 04/22 cholecystic fluid Raoultella ornithinolytica (klebsiella ornithinolytica) VITEK 2 METHOD Amikacin Sensitive Ampicillin + Sulbactam Sensitive Aztreonam Sensitive Ceftazidime <=1 Sensitive Ceftriaxone Sensitive Ertapenem Sensitive Gentamicin Sensitive Levofloxacin Sensitive1 Meropenem <=0.25 Sensitive Piperacillin/Tazobactam <=4 Sensitive Tetracycline Sensitive Tigecycline ?? Sensitive Tobramycin Sensitive Trimethoprim/Sulfa Sensitive Liver Fluid Collection; Culture 04/28 Body Fluid Culture, Aerobic [[id number]] (Abnormal) Collected: 04/28/20 1000 Lab Status: Preliminary result Specimen: Fluid Updated: 04/29/20 1316 Body Fluid Culture One colony of Raoultella ornithinolytica (Klebsiella ornithinolytica)Abnormal Gram Stain --Abnormal Few Neutrophils seen No microorganisms seen. Abnormal Assessment and Plan: Shannan Chaudhary is a 79 y.o. year old female with past medical history of with history of IDDM last A1c 8.5 (03/2020), HTN, HLD, moderate-severe admitted on 04/19/2020 ( Hospital Day 17 days ) presenting with cholecystitis, now s/p percutaneous cholecystostomy and percutaneous liver abscess SIS drain placement. Pt esophagitis on endoscopy which continues to likely be the source of her oozing, as her hemoglobin continues to drop. Will continue to keep on PPI BID PO and will monitor hemograms q8h and update T+S. After discussion with cardiology and GI concerning bleeding risk, will start on DAPT and hold apixaban given increased risks of bleeding. There do not appear to be other sources of bleeding, including the SIS drain. Will contact disability case manager during IDR regarding assistance for paying bills at home (pt family not around to pay bills for her), which is one of the pt's primary concerns. Leukocytosis on Augmentin is stable, given that it seems we have source control. Duration of abx will be for 2 days after SIS drain is removed. Pt remains in normal sinus on metoprolol and amiodarone 200mg BID (end 05/22); given that the pt is in NSR. AC plan going forward is apixaban and plavix until periprocedurally (around possible cholecystectomy), then DAPT periprocedurally, then apixaban andplavix. # esophagitis - appreciate GI recs - PO PPI BID - q8h hemogram - hold apixaban, will discuss with cardiology today timing of restart - continue Plavix given risks of in-stent thrombosis - T+S, tfx > 7 # FORREST, possibly 2/2 diuresis, improving - on losartan 25mg QD; Home dose 100mg QD # liver abscess (perhaps partially treated) vs infected fluid collection, s/p SIS drain (04/28) # acute cholecystitis, s/p perq cholecystostomy (04/22) Liver s/p SIS 04/28 - Culture klebsiella Gallbladder s/p perq 04/22 - Culture klebsiella - arron tube growing klebsiella - cholecystectomy in 6 weeks - ID appreciated - monitor daily CBC, BMP, LFTs - pip-tazo from 04/19-04/26, 04/28-3; - Augmenting 875/125 PO BID to be continued until 48hours after liver abscess SIS drain is removed ?? # afib rvr, rate and rhythm controlled now in sinus # cardiogenic shock, resolved # pulmonary edema 2/2 afib-rvr, resolving # HTN # hypokalemia # QTc prolongation - apixaban 5mg BID and DAPT as above - c/w amiodarone 200mg BID for 1 month per cards - c/w metoprolol 300mg qday - monitor vitals as above - strict I/O's - daily weights ?? # , moderate-severe # 2v CAD, s/p RCA stents on 04/21 # NSTEMI, likely type II - demand - AC plan as above - metoprolol as above - rosuvastatin 20mg qhs - hold amlo in BP - holding PO lasix today - c/w losartan 25mg; home dose 100mg - no surgical intervention at this point - pt remains largely asymptomatic ?? # Chronic Medical Conditions: # IDDM, A1c 8.5 - glargine 25 qhs - meal-associated insulin ?? # Routine Diet: Daily Healthy Menu Choices/Cardiac diet ([facility]-Diet) CHO cont DVT ppx: SCDs Fluids: PO Access: PIV Dispo: pending Code: Full Code Wilner Esparza MD 05/06/2020 PGY-1, Internal Medicine Red Team - Pager [phone] Associated attestation - Milagros Velazquez MD - 05/06/2020 9:23 PM EDT Attending Attestation Please see Dr Esparza's note for details of the patient history of presentation and data. I have discussed, reviewed and agree with the documented History, Physical findings, Assessment and Plan of care. I have examined the patient myself and personally reviewed all studies. In addition, I certify thatI am a [facility] credentialed attending provider with admitting privileges and that the patient meets or has met medical necessity to require an inpatient IPI level of care meeting a minimum of two midnights or is on the [facility] inpatient only procedure list (status C) due to: Hepatic abscess secondary to cholecystitis EGD showed esophagitis which is likely source of melena. PPI bid. Still with some melena which may be from previous bleed but held off on restarting eliquis. If remains stable will restart eliquis tomorrow (on plavix). we discussed with GI and cardiology. Plan DAPT rather then eliquis for now. Transfuse 1 unit PRBC given recent cardiac issues including afib RVR which she did not tolerate well * Brooke Walters RN - 05/05/2020 3:13 PM EDT email sent to Willkristen today : Pt Shannan Chaudhary has BSBC as primary listed and [facility] reports that she has Medicare as primary.. ? Can you please verify that and update demographics as necessary. Radha reports that Medicare is now listed as secondary, and that is always secondary to the primary insurance. * Jeevan Black MD - 05/05/2020 1:52 PM EDT Acute Care Surgery Progress Note ID: Shannan Chaudhary is a 79 y.o. female with PMH IDDM and reported aortic stenosis with valve area 0.8 (records unavailable in [facility] but reviewed by [facility] referring MD) who was admitted in transfer with cholecystitis, now s/p percutaneous cholecystostomy tube Subjective/24 hour events: - No leukocytosis today. - mild RUQ pain related to drain. - Tolerating PO Physical Exam: Last value Range last 24 hrs Temperature Temp: 37.2 ??C (98.9 ??F) Temp: [36.5 ??C (97.7 ??F)-37.2 ??C (98.9 ??F)] Heart Rate Heart Rate: 66 Heart Rate: -- Blood Pressure BP: 139/43 BP: (119-152)/(41-56) BP (Arterial Line): -- Respiratory Rate Resp: 20 Resp: [20] SpO2 SpO2: 97 % SpO2: [96 %-98 %] Physical Exam: General: NAD, resting comfortably, pleasant, conversant Neuro: grossly intact, nonfocal, moving all four extremities spontaneously HEENT: NCAT, anicteric sclera CVS: irregularly irregular Pulm: non-labored breathing Abd: soft, nondistended, minimally tender. Perc arron tube site with no erythema or drainage and bile in bag. Abscess drain with minimal fluid. Skin: warm, dry Intake/Output Summary (Last 24 hours) at 05/05/2020 1352 Last data filed at 05/05/2020 1325 Gross per 24 hour Intake 1110 ml Output 1032 ml Net 78 ml Labs: Recent Labs 05/05/20 0734 05/04/20201105/04/20 1426 WBC 9.1 11.8* 10.6* HGB 7.6* 8.2* 8.3* HCT 23.6* 25.8* 26.1* PLATELET 386* 418* 474* Recent Labs 05/05/20 0734 05/04/20 0518 05/03/20 0508 NA 137 136 138 K 4.4 4.3 4.2 CL 105 105 105 CO2 21* 20* 21* BUN 28* 33* 30* CREATININE 0.74 0.92 0.82 GLUCOSE 157 151 164 No results for input(s): PT, INR in the last 72 hours. Invalid input(s): PTT Assessment/Plan: 79y F w/ severe (valve area 0.8) transferred to [facility] with acute cholecystitis. Unable to performcholecystectomy 2/2 recent PCI with two stents requiring DAPT x 6 weeks. Now s/p cholecystostomy tube and IR placed drain into arabella-hepatic abscess. WBC continues to downtrending and her pain is much improved. EGD without active bleed, but did show esophagitis. From a cholecystitis stand point, sheappears to have adequate source control, is asymptomatic and cleared for discharge. She will need an IR drain study in 2 weeks from placement. Follow up with general surgery with cholecystostomy tube study in 6 weeks from placement. Jeevan Black MD General Surgery 05/05/2020 * Wilner Esparza MD - 05/05/2020 8:51 AM EDT [facility] - Red Team Inpatient Progress Note ID: Shannan Chaudhary is a 79 y.o. year old female with past medical history of IDDM last A1c 8.5 (03/2020), HTN, HLD, moderate-severe admitted on 04/19/2020 ( Hospital Day 16 days ) for cholecystitis. Active Hospital Problems Diagnosis ??? 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 Aortic stenosis - moderate ??? Atrial fibrillation--- paroxysmal ??? Cholecystitis Resolved Hospital Problems No resolved problems to display. Interval History: - remains on Plavix only for AC, as well as PO PPI BID - Leukocytosis downtrending, Hgb 7.8 downtrending - q8h hemogram, f/u in afternoon; can consider restarting apixaban in PM if stable - one BM yesterday, more formed and without darker melenic quality - per ID: Augmenting 875/125 PO BID to be continued until 48hours after liver abscess SIS drain is removed. Follow-up with IR scheduled 05/19 - pt without complaints of chest pain, abdominal pain well-controlled on oxycodone PRN Meds: ??? pantoprazole EC 40 mg Oral BID ??? sodium chloride 0.9 % (flush) 5 mL Intravenous BID ??? losartan 25 mg Oral Daily ??? melatonin 6 mg Oral Nightly ??? amoxicillin-clavulanate 1 tablet Oral BID ??? metoprolol succinate XL 300 mg Oral Nightly ??? rosuvastatin 20 mg Oral QPM ??? AMIOdarone 200 mg Oral BID ??? clopidogreL 75 mg Oral Daily ??? acetaminophen 1,000 mg Oral Q8H ??? polyethylene glycoL (MIRALAX) oral powder 17 g Oral Daily ??? senna-docusate 2 tablet Oral BID ??? sodium chloride 0.9 % (flush) 5 mL Intravenous BID ??? insulin lispro 1-4 Units Subcutaneous Q4H BASIL ??? insulin glargine 25 Units Subcutaneous Nightly PRN medications sodium chloride 0.9 % (flush), lidocaine, labetaloL, bisacodyl EC, sodium chloride 0.9 % (flush), oxyCODONE, glucose 40% oral geL OR dextrose 10% OR glucagon (human recombinant) Current Facility-Administered Medications Medication Dose Route Frequency ??? sodium chloride 0.9 % (flush) flush 5-20 mL 5-20 mL Intravenous Q1 Min PRN ??? lidocaine (XYLOCAINE) 10 mg/mL (1 %) injection 3 mg 0.3 mL Subcutaneous Once PRN ??? labetalol (NORMODYNE,TRANDATE) injection 20 mg 20 mg Intravenous Q2H PRN ??? bisacodyl EC (Dulcolax) tablet 10 mg 10 mg Oral Daily PRN ??? sodium chloride 0.9 % (flush) flush 5-20 mL 5-20 mL Intravenous Q1 Min PRN ??? oxyCODONE (Roxicodone) tablet 5 mg 5 mg Oral Q4H PRN ??? glucose (GLUTOSE) 40% oral geL 15-30 g Buccal Q30 Min PRN Or ??? dextrose 10% infusion 250 mL Intravenous Q30 Min PRN Or ??? glucagon (human recombinant) injection SolR 1 mg 1 mg Intramuscular Q30 Min PRN Physical Exam: Last value Range last 24 hrs Temperature Temp: 36.5 ??C (97.7 ??F) Temp: [36.5 ??C (97.7 ??F)-37 ??C (98.6 ??F)] Heart Rate Heart Rate: 66 Heart Rate: -- Blood Pressure BP: 150/48 BP: (119-154)/(41-52) Respiratory Rate Resp: 20 Resp: [20-24] SpO2 SpO2: 98 % SpO2: [95 %-98 %] Intake/Output Summary (Last 24 hours) at 05/05/2020 0851 Last data filed at 05/05/2020 0400 Gross per 24 hour Intake 447 ml Output 1263 ml Net -816 ml No data found. Admit wt: 86.18 kg Gen: AOx3, NAD on RA. Appears pale. HEENT: sclera clear, anicteric. Neck supple. CV: rrr, nl s1/s2 without m/r/g. III/ holosystolic murmur. Resp: lungs clear to auscultation b/l without rales or rhonchi, good inspiratory effort. GI: +bs, soft, nt/nd. Cholecystectomy drain in place with yellow-green clear fluid, SIS drain with small vol serosanguinous fluid. Wound site dressed, minimally tender. No abd pain Skin: warm, well-perfused, no LE edema, no rash. Neuro: grossly nonfocal exam, spontaneously moves all extremities Musculoskeletal: no joint swelling or pain Labs: Recent Labs 05/05/2073305/04/20201105/04/20 1426 WBC 9.1 11.8* 10.6* HGB 7.6* 8.2* 8.3* HCT 23.6* 25.8* 26.1* PLATELET 386* 418* 474* Recent Labs 05/05/20 0734 05/04/20 0518 05/03/20 0508 NA 137 136 138 K 4.4 4.3 4.2 CL 105 105 105 CO2 21* 20* 21* BUN 28* 33* 30* CREATININE 0.74 0.92 0.82 GLUCOSE 157 151 164 Recent Labs 05/05/20 0734 05/05/20 0529 05/04/2051705/03/20 0508 CALCIUM 8.5 -- 8.9 9.0 MAGNESIUM -- 0.81 0.97 0.82 Recent Labs 05/04/2018 05/03/20 0508 05/02/20 0613 AST 12 7 9 ALT 11 8 10 ALKPHOS 133* 136* 130* BILITOT 0.3 0.3 0.4 Microbiology: 04/22 cholecystic fluid Raoultella ornithinolytica (klebsiella ornithinolytica) VITEK 2 METHOD Amikacin Sensitive Ampicillin + Sulbactam Sensitive Aztreonam Sensitive Ceftazidime <=1 Sensitive Ceftriaxone Sensitive Ertapenem Sensitive Gentamicin Sensitive Levofloxacin Sensitive1 Meropenem <=0.25 Sensitive Piperacillin/Tazobactam <=4 Sensitive Tetracycline Sensitive Tigecycline ?? Sensitive Tobramycin Sensitive Trimethoprim/Sulfa Sensitive Liver Fluid Collection; Culture 04/28 Body Fluid Culture, Aerobic [[id number]] (Abnormal) Collected: 04/28/20 1000 Lab Status: Preliminary result Specimen: Fluid Updated: 04/29/20 1316 Body Fluid Culture One colony of Raoultella ornithinolytica (Klebsiella ornithinolytica)Abnormal Gram Stain --Abnormal Few Neutrophils seen No microorganisms seen. Abnormal Assessment and Plan: Shannan Chaudhary is a 79 y.o. year old female with past medical history of with history of IDDM last A1c 8.5 (03/2020), HTN, HLD, moderate-severe admitted on 04/19/2020 ( Hospital Day 16 days ) presenting with cholecystitis, now s/p percutaneous cholecystostomy and percutaneous liver abscess SIS drain placement. Pt esophagitis found on endoscopy continues to present concern as a bleeding source, especially with a downtrending hemoglobin; however this may be within normal daily variation, considering the patient reports more formed BMs and less dark in color. Will monitor hemograms q8h. Will continue PO BIDPPI. Can consider restarting apixaban tonight if stable. Leukocytosis on Augmentin is stable, given that it seems we have source control. Duration of abx will be for 2 days after SIS drain is removed. Creatinine clearance stable, FORREST resolved though with mildly elevated BUN likely 2/2 gastric digestion of blood. Pt remains in normal sinus on metoprolol and amiodarone 200mg BID (end 05/22); given that the pt is in NSR. AC plan going forward is apixaban and plavix until periprocedurally (around possible cholecystectomy), then DAPT periprocedurally, thenapixaban and plavix. # esophagitis - appreciate GI recs - PO PPI BID - q8h hemogram - hold apixaban, can consider apixaban tonight - continue Plavix given risks of in-stent thrombosis - T+S, tfx > 7 # FORREST, possibly 2/2 diuresis, improving - on losartan 25mg QD; Home dose 100mg QD # liver abscess (perhaps partially treated) vs infected fluid collection, s/p SIS drain (04/28) # acute cholecystitis, s/p perq cholecystostomy (04/22) Liver s/p SIS 04/28 - Culture klebsiella Gallbladder s/p perq 04/22 - Culture klebsiella - arron tube growing klebsiella - cholecystectomy in 6 weeks - ID appreciated - monitor daily CBC, BMP, LFTs - pip-tazo from 04/19-04/26, 04/28-3; - Augmenting 875/125 PO BID to be continued until 48hours after liver abscess SIS drain is removed ?? # afib rvr, rate and rhythm controlled now in sinus # cardiogenic shock, resolved # pulmonary edema 2/2 afib-rvr, resolving # HTN # hypokalemia # QTc prolongation - apixaban 5mg BID and DAPT as above - c/w amiodarone 200mg BID for 1 month per cards - c/w metoprolol 300mg qday - monitor vitals as above - strict I/O's - daily weights ?? # , moderate-severe # 2v CAD, s/p RCA stents on 04/21 # NSTEMI, likely type II - demand - AC plan as above - metoprolol as above - rosuvastatin 20mg qhs - hold amlo in BP - holding PO lasix today - c/w losartan 25mg; home dose 100mg - no surgical intervention at this point - pt remains largely asymptomatic ?? # Chronic Medical Conditions: # IDDM, A1c 8.5 - glargine 25 qhs - meal-associated insulin ?? # Routine Diet: Daily Healthy Menu Choices/Cardiac diet ([facility]-Diet) CHO cont DVT ppx: SCDs Fluids: PO Access: PIV Dispo: pending Code: Full Code Wilner Esparza MD 05/05/2020 PGY-1, Internal Medicine Red Team - Pager [phone] * Brooke Walters RN - 05/04/2020 1:03 PM EDT Chart reviewed, care reviewed with primary team and at interdisciplinary rounds. Patient continues to require acute hospital care for a new liver abscess. Sx to place a drain and now on IV abx for treatment Hemoglobin continues to drop , and pt has percutaneous arron tube placed ?? Functional status prior to admission: States she is independent and active. 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 Is driving and able to walk good distances.? Patient is insured through: Primary Insurance: [employer] [place] Pay[place]: [employer] [place] / Plan[place] / Product Type: *No Product type* / Secondary Insurance: N/A Prescription Coverage: yes ?? Plan for discharge is: Services Anticipated at Discharge: home health care - orders routed/pended with: ?? [facility] ?? PHONE: [phone] FAX: [phone] ?? Barriers to discharge: no barriers for a safe/appropriate discharge that are identified at this time. ?? Plan going forward: CM will continue to follow and assist with discharge planning and coordination of care as indicated. ?? * Wilner Esparza MD - 05/04/2020 8:48 AM EDT [facility] - Red Team Inpatient Progress Note ID: Shannan Chaudhary is a 79 y.o. year old female with past medical history of IDDM last A1c 8.5 (03/2020), HTN, HLD, moderate-severe admitted on 04/19/2020 ( Hospital Day 15 days ) for cholecystitis. Active Hospital Problems Diagnosis ??? 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 Aortic stenosis - moderate ??? Atrial fibrillation--- paroxysmal ??? Cholecystitis Resolved Hospital Problems No resolved problems to display. Interval History: - yesterday completed EGD showing esophagitis, no active intervention; held ASA and apixaban yesterday - will continue PO PPI BID - Leukocytosis stable this AM, hemoglobin down from yesterday PM from 8.7 to 8.0 - q8h hemogram - one dark black BM today, continues to feel weak and with some tenderness in the back of her throat s/p EGD - per ID: Augmenting 875/125 PO BID to be continued until 48hours after liver abscess SIS drain is removed. Follow-up with IR scheduled 05/19 - Plan for triple AC to stop ASA this week and continue only on apixaban and Plavix, then DAPT periprocedurally, then resume apixaban and Plavix - pt without complaints of chest pain, abdominal pain well-controlled on oxycodone PRN Meds: ??? pantoprazole EC 40 mg Oral BID ??? apixaban 5 mg Oral BID ??? sodium chloride 0.9 % (flush) 5 mL Intravenous BID ??? losartan 25 mg Oral Daily ??? melatonin 6 mg Oral Nightly ??? amoxicillin-clavulanate 1 tablet Oral BID ??? metoprolol succinate XL 300 mg Oral Nightly ??? rosuvastatin 20 mg Oral QPM ??? AMIOdarone 200 mg Oral BID ??? clopidogreL 75 mg Oral Daily ??? acetaminophen 1,000 mg Oral Q8H ??? polyethylene glycoL (MIRALAX) oral powder 17 g Oral Daily ??? senna-docusate 2 tablet Oral BID ??? sodium chloride 0.9 % (flush) 5 mL Intravenous BID ??? insulin lispro 1-4 Units Subcutaneous Q4H BASIL ??? insulin glargine 25 Units Subcutaneous Nightly PRN medications sodium chloride 0.9 % (flush), lidocaine, labetaloL, bisacodyl EC, sodium chloride 0.9 % (flush), oxyCODONE, glucose 40% oral geL OR dextrose 10% OR glucagon (human recombinant) Current Facility-Administered Medications Medication Dose Route Frequency ??? sodium chloride 0.9 % (flush) flush 5-20 mL 5-20 mL Intravenous Q1 Min PRN ??? lidocaine (XYLOCAINE) 10 mg/mL (1 %) injection 3 mg 0.3 mL Subcutaneous Once PRN ??? labetalol (NORMODYNE,TRANDATE) injection 20 mg 20 mg Intravenous Q2H PRN ??? bisacodyl EC (Dulcolax) tablet 10 mg 10 mg Oral Daily PRN ??? sodium chloride 0.9 % (flush) flush 5-20 mL 5-20 mL Intravenous Q1 Min PRN ??? oxyCODONE (Roxicodone) tablet 5 mg 5 mg Oral Q4H PRN ??? glucose (GLUTOSE) 40% oral geL 15-30 g Buccal Q30 Min PRN Or ??? dextrose 10% infusion 250 mL Intravenous Q30 Min PRN Or ??? glucagon (human recombinant) injection SolR 1 mg 1 mg Intramuscular Q30 Min PRN Physical Exam: Last value Range last 24 hrs Temperature Temp: 36.7 ??C (98.1 ??F) Temp: [36.4 ??C (97.6 ??F)-36.9 ??C (98.4 ??F)] Heart Rate Heart Rate: 66 Heart Rate: [61-66] Blood Pressure BP: 144/49 BP: (71-144)/(37-58) Respiratory Rate Resp: 22 Resp: [16-22] SpO2 SpO2: 96 % SpO2: [95 %-100 %] Intake/Output Summary (Last 24 hours) at 05/04/2020 0848 Last data filed at 05/04/2020 0802 Gross per 24 hour Intake 787.1 ml Output 1495 ml Net -707.9 ml Patient Vitals for the past 168 hrs: Weight 04/28/20 0500 83.6 kg (184 lb 4.9 oz) Admit wt: 86.18 kg Gen: AOx3, NAD on RA. Appears pale. HEENT: sclera clear, anicteric. Neck supple. CV: rrr, nl s1/s2 without m/r/g. III/ holosystolic murmur. Resp: lungs clear to auscultation b/l without rales or rhonchi, good inspiratory effort. GI: +bs, soft, nt/nd. Cholecystectomy drain in place with yellow-green clear fluid, SIS drain with small vol serosanguinous fluid. Wound site well-dressed, minimally tender. No abd pain. Skin: warm, well-perfused, no LE edema, no rash. Neuro: grossly nonfocal exam, spontaneously moves all extremities Musculoskeletal: no joint swelling or pain Labs: Recent Labs 05/04/20 0505/03/20 1349 05/03/20 0508 WBC 11.4* 11.2* 13.1* HGB 8.0* 8.7* 8.3* HCT 25.6* 27.1* 25.7* PLATELET 415* 428* 409* Recent Labs 05/04/20 0518 05/03/20 0508 05/02/20 0613 NA 136 138 139 K 4.3 4.2 4.0 CL 105 105 105 CO2 20* 21* 23 BUN 33* 30* 28* CREATININE 0.92 0.82 0.78 GLUCOSE 151 164 164 Recent Labs 05/04/20 0518 05/03/20 0508 05/02/20 0613 CALCIUM 8.9 9.0 8.9 MAGNESIUM 0.97 0.82 0.85 Recent Labs 05/04/20 0518 05/03/20 0508 05/02/20 0613 AST 12 7 9 ALT 11 8 10 ALKPHOS 133* 136* 130* BILITOT 0.3 0.3 0.4 Microbiology: 04/22 cholecystic fluid Raoultella ornithinolytica (klebsiella ornithinolytica) VITEK 2 METHOD Amikacin Sensitive Ampicillin + Sulbactam Sensitive Aztreonam Sensitive Ceftazidime <=1 Sensitive Ceftriaxone Sensitive Ertapenem Sensitive Gentamicin Sensitive Levofloxacin Sensitive1 Meropenem <=0.25 Sensitive Piperacillin/Tazobactam <=4 Sensitive Tetracycline Sensitive Tigecycline ?? Sensitive Tobramycin Sensitive Trimethoprim/Sulfa Sensitive Liver Fluid Collection; Culture 04/28 Body Fluid Culture, Aerobic [[id number]] (Abnormal) Collected: 04/28/20 1000 Lab Status: Preliminary result Specimen: Fluid Updated: 04/29/20 1316 Body Fluid Culture One colony of Raoultella ornithinolytica (Klebsiella ornithinolytica)Abnormal Gram Stain --Abnormal Few Neutrophils seen No microorganisms seen. Abnormal Assessment and Plan: Shannan Chaudhary is a 79 y.o. year old female with past medical history of with history of IDDM last A1c 8.5 (03/2020), HTN, HLD, moderate-severe admitted on 04/19/2020 ( Hospital Day 15 days ) presenting with cholecystitis, now s/p percutaneous cholecystostomy and percutaneous liver abscess SIS drain placement. During endoscopy, the patient was found to have esophagitis, which likely accounts for her slow bleed and melenic presentation over the past several days. Her hemoglobin remains steadily downtrendingand we will continue AC only with Plavix, and monitor hemograms q8h. Will continue PO BID PPI. Leukocytosis on Augmentin is stable, given that it seems we have source control. Duration of abx will be for 2 days after SIS drain is removed. Creatinine clearance stable, FORREST appears resolved after fluids. Pt remains in normal sinus on metoprolol and amiodarone 200mg BID (end 05/22); given that the pt is in NSR. AC plan going forward is apixaban and plavix until periprocedurally (around possiblecholecystectomy), then DAPT periprocedurally, then apixaban and plavix. # esophagitis - appreciate GI recs - PO PPI BID - q8h hemogram - hold apixaban, continue Plavix given risks of in-stent thrombosis - T+S, tfx > 7 # FORREST, possibly 2/2 diuresis, improving - on losartan 25mg QD; Home dose 100mg QD # liver abscess (perhaps partially treated) vs infected fluid collection, s/p SIS drain (04/28) # acute cholecystitis, s/p perq cholecystostomy (04/22) Liver s/p SIS 04/28 - Culture klebsiella Gallbladder s/p perq 04/22 - Culture klebsiella - arron tube growing klebsiella - cholecystectomy in 6 weeks - ID appreciated - monitor daily CBC, BMP, LFTs - pip-tazo from 04/19-04/26, 04/28-3; - Augmenting 875/125 PO BID to be continued until 48hours after liver abscess SIS drain is removed ?? # afib rvr, rate and rhythm controlled now in sinus # cardiogenic shock, resolved # pulmonary edema / afib-rvr, resolving # HTN # hypokalemia # QTc prolongation - apixaban 5mg BID and DAPT as above - c/w amiodarone 200mg BID for 1 month per cards - c/w metoprolol 300mg qday - monitor vitals as above - strict I/O's - daily weights ?? # , moderate-severe # 2v CAD, s/p RCA stents on 04/21 # NSTEMI, likely type II - demand - AC plan as above - metoprolol as above - rosuvastatin 20mg qhs - hold amlo in BP - holding PO lasix today - c/w losartan 25mg; home dose 100mg - no surgical intervention at this point - pt remains largely asymptomatic ?? # Chronic Medical Conditions: # IDDM, A1c 8.5 - glargine 25 qhs - meal-associated insulin ?? # Routine Diet: Daily Healthy Menu Choices/Cardiac diet ([facility]-Diet) CHO cont DVT ppx: SCDs Fluids: PO Access: PIV Dispo: pending Code: Full Code Wilner Esparza MD 05/04/2020 PGY-1, Internal Medicine Red Team - Pager [phone] Associated attestation - Milagros Velazquez MD - 05/04/2020 9:11 PM EDT Attending Attestation Please see Dr Esparza's note for details of the patient history of presentation and data. I have discussed, reviewed and agree with the documented History, Physical findings, Assessment and Plan of care. I have examined the patient myself and personally reviewed all studies. In addition, I certify thatI am a D-H credentialed attending provider with admitting privileges and that the patient meets or has met medical necessity to require an inpatient IPI level of care meeting a minimum of two midnights or is on the [facility] inpatient only procedure list (status C) due to: Hepatic abscess secondary to cholecystitis EGD showed esophagitis which is likely source of melena. PPI bid. Will need repeat EGD and colo as outpatient (if continued to bleed would do colonoscopy while in house). Still with some melena whichmay be from previous bleed but held off on restarting eliquis. If remains stable will restart eliquis tomorrow (on plavix). Do not plan to restart the aspirin after discussion with cardiology * Jeevan Black MD - 05/04/2020 7:32 AM EDT Acute Care Surgery Progress Note ID: Shannan Chaudhary is a 79 y.o. female with PMH IDDM and reported aortic stenosis with valve area 0.8 (records unavailable in [facility] but reviewed by [facility] referring MD) who was admitted in transfer with cholecystitis, now s/p percutaneous cholecystostomy tube Subjective/24 hour events: - WBC downtredning - Reported melena over weekend, esophagitis on EGD. Now on PPI. - Tolerating PO Physical Exam: Last value Range last 24 hrs Temperature Temp: 36.4 ??C (97.6 ??F) Temp: [36.4 ??C (97.6 ??F)-36.9 ??C (98.4 ??F)] Heart Rate Heart Rate: 66 Heart Rate: [60-66] Blood Pressure BP: 139/48 BP: (71-155)/(37-58) BP (Arterial Line): -- Respiratory Rate Resp: 17 Resp: [16-20] SpO2 SpO2: 97 % SpO2: [88 %-100 %] Physical Exam: General: NAD, resting comfortably, pleasant, conversant Neuro: grossly intact, nonfocal, moving all four extremities spontaneously HEENT: NCAT, anicteric sclera CVS: irregularly irregular Pulm: non-labored breathing Abd: soft, nondistended, non-tender Perc arron tube site with no erythema or drainage and bile in bag. Abscess drain with minimal fluid. Skin: warm, dry Intake/Output Summary (Last 24 hours) at 05/04/2020 0732 Last data filed at 05/04/2020 0316 Gross per 24 hour Intake 787.1 ml Output 1195 ml Net -407.9 ml Labs: Recent Labs 05/04/20 0518 05/03/20 1349 05/03/20 0508 WBC 11.4* 11.2* 13.1* HGB 8.0* 8.7* 8.3* HCT 25.6* 27.1* 25.7* PLATELET 415* 428* 409* Recent Labs 05/04/20 0518 05/03/20 0508 05/02/20 0613 NA 136 138 139 K 4.3 4.2 4.0 CL 105 105 105 CO2 20* 21* 23 BUN 33* 30* 28* CREATININE 0.92 0.82 0.78 GLUCOSE 151 164 164 No results for input(s): PT, INR in the last 72 hours. Invalid input(s): PTT Assessment/Plan: 79y F w/ severe (valve area 0.8) transferred to [facility] with acute cholecystitis. Unable to performcholecystectomy 2/2 recent PCI with two stents requiring DAPT x 6 weeks. Now s/p cholecystostomy tube and IR placed drain into arabella-hepatic abscess. WBC continues to downtrending and her pain is much improved. EGD without active bleed, but did show esophagitis. From a cholecystitis stand point, sheappears to have adequate source control, is asymptomatic and cleared for discharge. She will need an IR drain study in 2 weeks. Follow up with general surgery with cholecystostomy tube study in 6 weeks. Jeevan Black MD General Surgery 05/04/2020 * Neri Shaver MD - 05/03/2020 12:43 PM EDT Acute Care Surgery Progress Note ID: Shannan Chaudhary is a 79 y.o. female with PMH IDDM and reported aortic stenosis with valve area 0.8 (records unavailable in [facility] but reviewed by [facility] referring MD) who was admitted in transfer with cholecystitis, now s/p percutaneous cholecystostomy tube Subjective/24 hour events: - WBC stable 12.9-->13.1 - Pain well controlled - Tolerating PO Physical Exam: Last value Range last 24 hrs Temperature Temp: 36.7 ??C (98.1 ??F) Temp: [36.6 ??C (97.9 ??F)-36.9 ??C (98.4 ??F)] Heart Rate Heart Rate: 61 Heart Rate: [59-70] Blood Pressure BP: 142/52 BP: (71-170)/(37-58) BP (Arterial Line): -- Respiratory Rate Resp: 20 Resp: [16-20] SpO2 SpO2: 95 % SpO2: [88 %-100 %] Physical Exam: General: NAD, resting comfortably, pleasant, conversant Neuro: grossly intact, nonfocal, moving all four extremities spontaneously HEENT: NCAT, anicteric sclera CVS: irregularly irregular Pulm: non-labored breathing Abd: soft, nondistended, non-tender Perc arron tube site with no erythema or drainage and bile in bag. Abscess drain with minimal fluid. Skin: warm, dry Intake/Output Summary (Last 24 hours) at 05/03/2020 1243 Last data filed at 05/03/2020 1111 Gross per 24 hour Intake 440 ml Output 1613 ml Net -1173 ml Labs: Recent Labs 05/03/20 0508 05/02/207 05/02/20 1513 WBC 13.1* 12.9* 11.8* HGB 8.3* 8.3* 8.8* HCT 25.7* 25.9* 27.1* PLATELET 409* 413* 420* Recent Labs 05/03/20 0508 05/02/20 0613 05/01/20 0523 NA 138 139 136 K 4.2 4.0 4.0 CL 105 105 104 CO2 21* 23 22 BUN 30* 28* 29* CREATININE 0.82 0.78 0.77 GLUCOSE 164 164 170 No results for input(s): PT, INR in the last 72 hours. Invalid input(s): PTT Assessment/Plan: 79y F w/ severe (valve area 0.8) transferred to [facility] with acute cholecystitis. Unable to performcholecystectomy 2/2 recent PCI with two stents requiring DAPT x 6 weeks. Now s/p cholecystostomy tube and IR placed drain into arabella-hepatic abscess. WBC continues to downtrending and her pain is much improved. EGD with GI toady for c/f UGIB. No change in general surgery recs. She will need an IR drain study in 2 weeks. Follow up with general surgery with cholecystostomy tube study in 6 weeks. Neri Shaver MD General Surgery 05/03/2020 * Wilner Esparza MD - 05/03/2020 9:41 AM EDT [facility] Medicine - Red Team Inpatient Progress Note ID: Sahnnan Chaudhary is a 79 y.o. year old female with past medical history of IDDM last A1c 8.5 (03/2020), HTN, HLD, moderate-severe admitted on 04/19/2020 ( Hospital Day 14 days ) for cholecystitis. Active Hospital Problems Diagnosis ??? 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 Aortic stenosis - moderate ??? Atrial fibrillation--- paroxysmal ??? Cholecystitis Resolved Hospital Problems No resolved problems to display. Interval History: - Leukocytosis stable this AM, hemoglobin stable at 8.3 down from 10.5 on 04/28. - 4 BM in the past day, remains dark; pt reports more fatigue than previous - per ID: Augmenting 875/125 PO BID to be continued until 48hours after liver abscess SIS drain is removed. Follow-up with IR scheduled 05/19 - Plan for triple AC to stop ASA this week but now off apixaban given GIB and in NSR and only on DAPT - pt without active complaints, pain improved with PRN oxycodone Meds: ??? pantoprazole 40 mg Intravenous BID ??? sodium chloride 0.9 % (flush) 5 mL Intravenous BID ??? losartan 25 mg Oral Daily ??? melatonin 6 mg Oral Nightly ??? amoxicillin-clavulanate 1 tablet Oral BID ??? metoprolol succinate XL 300 mg Oral Nightly ??? rosuvastatin 20 mg Oral QPM ??? AMIOdarone 200 mg Oral BID ??? aspirin 81 mg Oral Daily ??? clopidogreL 75 mg Oral Daily ??? acetaminophen 1,000 mg Oral Q8H ??? polyethylene glycoL (MIRALAX) oral powder 17 g Oral Daily ??? senna-docusate 2 tablet Oral BID ??? sodium chloride 0.9 % (flush) 5 mL Intravenous BID ??? insulin lispro 1-4 Units Subcutaneous Q4H BASIL ??? insulin glargine 25 Units Subcutaneous Nightly PRN medications sodium chloride 0.9 % (flush), lidocaine, labetaloL, bisacodyl EC, sodium chloride 0.9 % (flush), oxyCODONE, glucose 40% oral geL OR dextrose 10% OR glucagon (human recombinant) Current Facility-Administered Medications Medication Dose Route Frequency ??? sodium chloride 0.9 % (flush) flush 5-20 mL 5-20 mL Intravenous Q1 Min PRN ??? lidocaine (XYLOCAINE) 10 mg/mL (1 %) injection 3 mg 0.3 mL Subcutaneous Once PRN ??? labetalol (NORMODYNE,TRANDATE) injection 20 mg 20 mg Intravenous Q2H PRN ??? bisacodyl EC (Dulcolax) tablet 10 mg 10 mg Oral Daily PRN ??? sodium chloride 0.9 % (flush) flush 5-20 mL 5-20 mL Intravenous Q1 Min PRN ??? oxyCODONE (Roxicodone) tablet 5 mg 5 mg Oral Q4H PRN ??? glucose (GLUTOSE) 40% oral geL 15-30 g Buccal Q30 Min PRN Or ??? dextrose 10% infusion 250 mL Intravenous Q30 Min PRN Or ??? glucagon (human recombinant) injection SolR 1 mg 1 mg Intramuscular Q30 Min PRN Physical Exam: Last value Range last 24 hrs Temperature Temp: 36.7 ??C (98 ??F) Temp: [36.4 ??C (97.6 ??F)-36.9 ??C (98.4 ??F)] Heart Rate Heart Rate: 59 Heart Rate: [59-70] Blood Pressure BP: 156/47 BP: (127-170)/(47-58) Respiratory Rate Resp: 18 Resp: [16-18] SpO2 SpO2: 95 % SpO2: [95 %-98 %] Intake/Output Summary (Last 24 hours) at 05/03/2020 0941 Last data filed at 05/03/2020 0707 Gross per 24 hour Intake 430 ml Output 2130 ml Net -1700 ml Patient Vitals for the past 168 hrs: Weight 04/28/20 0500 83.6 kg (184 lb 4.9 oz) Admit wt: 86.18 kg Gen: AOx3, NAD on RA. Appears more pale than previous. HEENT: sclera clear, anicteric. Neck supple. CV: rrr, nl s1/s2 without m/r/g. III/ holosystolic murmur. Resp: lungs clear to auscultation b/l without rales or rhonchi, good inspiratory effort. GI: +bs, soft, nt/nd. Cholecystectomy drain in place with yellow-green clear fluid, SIS drain with small vol serosanguinous fluid. Wound site well-dressed, minimally tender. No abd pain. Skin: warm, well-perfused, no LE edema, no rash. Neuro: grossly nonfocal exam, spontaneously moves all extremities Musculoskeletal: no joint swelling or pain Labs: Recent Labs 05/03/20 0508 05/02/20205605/02/20 1513 WBC 13.1* 12.9* 11.8* HGB 8.3* 8.3* 8.8* HCT 25.7* 25.9* 27.1* PLATELET 409* 413* 420* Recent Labs 05/03/20 0508 05/02/20 0613 05/01/20 0523 NA 138 139 136 K 4.2 4.0 4.0 CL 105 105 104 CO2 21* 23 22 BUN 30* 28* 29* CREATININE 0.82 0.78 0.77 GLUCOSE 164 164 170 Recent Labs 05/03/20 0508 05/02/20 0613 05/01/20 0523 CALCIUM 9.0 8.9 8.8 MAGNESIUM 0.82 0.85 0.89 Recent Labs 05/03/20 0508 05/02/20 0613 05/01/20 0523 AST 7 9 10 ALT 8 10 11 ALKPHOS 136* 130* 140* BILITOT 0.3 0.4 0.4 Microbiology: 04/22 cholecystic fluid Raoultella ornithinolytica (klebsiella ornithinolytica) VITEK 2 METHOD Amikacin Sensitive Ampicillin + Sulbactam Sensitive Aztreonam Sensitive Ceftazidime <=1 Sensitive Ceftriaxone Sensitive Ertapenem Sensitive Gentamicin Sensitive Levofloxacin Sensitive1 Meropenem <=0.25 Sensitive Piperacillin/Tazobactam <=4 Sensitive Tetracycline Sensitive Tigecycline ?? Sensitive Tobramycin Sensitive Trimethoprim/Sulfa Sensitive Liver Fluid Collection; Culture 04/28 Body Fluid Culture, Aerobic [[id number]] (Abnormal) Collected: 04/28/20 1000 Lab Status: Preliminary result Specimen: Fluid Updated: 04/29/20 1316 Body Fluid Culture One colony of Raoultella ornithinolytica (Klebsiella ornithinolytica)Abnormal Gram Stain --Abnormal Few Neutrophils seen No microorganisms seen. Abnormal Assessment and Plan: Shannan Chaudhary is a 79 y.o. year old female with past medical history of with history of IDDM last A1c 8.5 (03/2020), HTN, HLD, moderate-severe admitted on 04/19/2020 ( Hospital Day 14 days ) presenting with cholecystitis, now s/p percutaneous cholecystostomy and percutaneous liver abscess SIS drain placement. With downtrending hemoglobin (now steady) and darker heme positive BMs in the setting of triple AC,suspicion for UGIB remains; pt will be taken to endoscopy today for evaluation of source, though likely intervention possibilities are limited given she remains on DAPT. Will continue BID IV PPI and discuss AC plan in the future with cardiology. Leukocytosis on Augmentin is stable, given that it seems we have source control. Duration of abx will be for 2 days after SIS drain is removed. Creatinine clearance stable, FORREST appears resolved after fluids. Pt remains in normal sinus on metoprolol and amiodarone 200mg BID (end 05/22); given that the pt is in NSR, and how recently the stent was placed, will keep on DAPT and pull back on apixaban (previous plan was to keep on triple and end aspirin on 05/06; then continuing without ASA and thus only on Plavix and apixaban until periprocedural period (cholecystectomy in ~6 weeks) at which point she should be on DAPT, and then restarting her on Plavix and apixaban). # suspected slow GIB - will be taken to endosuite today for eval - appreciate GI recs - IV PPI BID - hold apixaban, continue DAPT given risks of in-stent thrombosis - T+S, tfx > 7 # FORREST, possibly 2/2 diuresis, improving - Restart losartan 25mg QD; Home dose 100mg QD # liver abscess (perhaps partially treated) vs infected fluid collection, s/p SIS drain (04/28) # acute cholecystitis, s/p perq cholecystostomy (04/22) Liver s/p SIS 04/28 - Culture klebsiella Gallbladder s/p perq 04/22 - Culture klebsiella - arron tube growing klebsiella - cholecystectomy in 6 weeks - ID appreciated - monitor daily CBC, BMP, LFTs - pip-tazo from 04/19-04/26, 04/28-3; - Augmenting 875/125 PO BID to be continued until 48hours after liver abscess SIS drain is removed ?? # afib rvr, rate and rhythm controlled now in sinus # cardiogenic shock, resolved # pulmonary edema 2/2 afib-rvr, resolving # HTN # hypokalemia # QTc prolongation - hold apixaban 5mg BID - c/w amiodarone 200mg BID for 1 month per cards - c/w metoprolol 300mg qday - monitor vitals as above - DAPT as above - strict I/O's - daily weights ?? # , moderate-severe # 2v CAD, s/p RCA stents on 04/21 # NSTEMI, likely type II - demand - DAPT today - previous plan: to take off ASA until periprocedural, then resume only on ASA, then afterward onlyon Plavix/apixaban, but will continue to monitor - metoprolol as above - rosuvastatin 20mg qhs - hold amlo in BP - holding PO lasix today - c/w losartan 25mg; home dose 100mg - no surgical intervention at this point - pt remains largely asymptomatic ?? # Chronic Medical Conditions: # IDDM, A1c 8.5 - glargine 25 qhs - meal-associated insulin ?? # Routine Diet: Daily Healthy Menu Choices/Cardiac diet ([facility]-Diet) CHO cont DVT prophylaxis: apixaban, ASA, plavix Fluids: PO Access: PIV Dispo: pending Code: Full Code Wilner Esparza MD 05/03/2020 PGY-1, Internal Medicine Red Team - Pager [phone] Associated attestation - Milagros Velazquez MD - 05/03/2020 5:34 PM EDT Attending Attestation Please see Dr Esparza's note for details of the patient history of presentation and data. I have discussed, reviewed and agree with the documented History, Physical findings, Assessment and Plan of care. I have examined the patient myself and personally reviewed all studies. In addition, I certify thatI am a D-H credentialed attending provider with admitting privileges and that the patient meets or has met medical necessity to require an inpatient IPI level of care meeting a minimum of two midnights or is on the [facility] inpatient only procedure list (status C) due to: Hepatic abscess secondary to cholecystitis EGD showed esophagitis which is likely source of melena. PPI bid. Will need repeat EGD and colo as outpatient (if continued to bleed would do colonoscopy while in house). If remains stable will restart eliquis tomorrow (on plavix). Do not plan to restart the aspirin after discussion with cardiology * Wilner Esparza MD - 05/02/2020 11:15 AM EDT [facility] Medicine - Red Team Inpatient Progress Note ID: Shannan Chaudhary is a 79 y.o. year old female with past medical history of IDDM last A1c 8.5 (03/2020), HTN, HLD, moderate-severe admitted on 04/19/2020 ( Hospital Day 13 days ) for cholecystitis. Active Hospital Problems Diagnosis ??? 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 Aortic stenosis - moderate ??? Atrial fibrillation--- paroxysmal ??? Cholecystitis Resolved Hospital Problems No resolved problems to display. Interval History: - Leukocytosis stable AM (13.5 ->13.9) - Hgb 8.9 down from 10.5 from 04/28. - Reports multiple larger BMs overnight, a bit dark; this AM pt with large dark BM again with heme positive, per nursing - Per ID: Augmenting 875/125 PO BID to be continued until 48hours after liver abscess SIS drain is removed. Follow-up with IR scheduled 05/19 - Plan for triple AC: STOP ASA this week - EKG (04/30): sinus bradycardia - on metoprolol and amiodarone - No active complaints at this time; pain is improved with prn oxycodone Meds: ??? pantoprazole 40 mg Intravenous BID ??? sodium chloride 0.9 % (flush) 5 mL Intravenous BID ??? losartan 25 mg Oral Daily ??? melatonin 6 mg Oral Nightly ??? amoxicillin-clavulanate 1 tablet Oral BID ??? metoprolol succinate XL 300 mg Oral Nightly ??? rosuvastatin 20 mg Oral QPM ??? AMIOdarone 200 mg Oral BID ??? aspirin 81 mg Oral Daily ??? clopidogreL 75 mg Oral Daily ??? acetaminophen 1,000 mg Oral Q8H ??? polyethylene glycoL (MIRALAX) oral powder 17 g Oral Daily ??? senna-docusate 2 tablet Oral BID ??? sodium chloride 0.9 % (flush) 5 mL Intravenous BID ??? insulin lispro 1-4 Units Subcutaneous Q4H BASIL ??? insulin glargine 25 Units Subcutaneous Nightly PRN medications sodium chloride 0.9 % (flush), lidocaine, labetaloL, bisacodyl EC, sodium chloride 0.9 % (flush), oxyCODONE, glucose 40% oral geL OR dextrose 10% OR glucagon (human recombinant) Current Facility-Administered Medications Medication Dose Route Frequency ??? sodium chloride 0.9 % (flush) flush 5-20 mL 5-20 mL Intravenous Q1 Min PRN ??? lidocaine (XYLOCAINE) 10 mg/mL (1 %) injection 3 mg 0.3 mL Subcutaneous Once PRN ??? labetalol (NORMODYNE,TRANDATE) injection 20 mg 20 mg Intravenous Q2H PRN ??? bisacodyl EC (Dulcolax) tablet 10 mg 10 mg Oral Daily PRN ??? sodium chloride 0.9 % (flush) flush 5-20 mL 5-20 mL Intravenous Q1 Min PRN ??? oxyCODONE (Roxicodone) tablet 5 mg 5 mg Oral Q4H PRN ??? glucose (GLUTOSE) 40% oral geL 15-30 g Buccal Q30 Min PRN Or ??? dextrose 10% infusion 250 mL Intravenous Q30 Min PRN Or ??? glucagon (human recombinant) injection SolR 1 mg 1 mg Intramuscular Q30 Min PRN Physical Exam: Last value Range last 24 hrs Temperature Temp: 36.4 ??C (97.5 ??F) Temp: [36.2 ??C (97.2 ??F)-37 ??C (98.6 ??F)] Heart Rate Heart Rate: 56 Heart Rate: [56-70] Blood Pressure BP: 128/51 BP: (128-155)/(48-57) Respiratory Rate Resp: 18 Resp: [16-18] SpO2 SpO2: 95 % SpO2: [95 %-97 %] Intake/Output Summary (Last 24 hours) at 05/02/2020 1115 Last data filed at 05/02/2020 1037 Gross per 24 hour Intake 1455 ml Output 1871 ml Net -416 ml Patient Vitals for the past 168 hrs: Weight 04/28/20 0500 83.6 kg (184 lb 4.9 oz) Admit wt: 86.18 kg Gen: AOx3, NAD on RA. HEENT: sclera clear, anicteric. Neck supple. CV: rrr, nl s1/s2 without m/r/g. 3/6 holosystolic murmur. Resp: lungs clear to auscultation b/l without rales or rhonchi, good inspiratory effort. GI: +bs, soft, nt/nd. Cholecystectomy drain in place with yellow-green clear fluid, SIS drain with small vol serosanguinous fluid. Wound site well-dressed, minimally tender. No abd pain. Skin: warm, well-perfused, no LE edema, no rash. Neuro: grossly nonfocal exam, spontaneously moves all extremities Musculoskeletal: no joint swelling or pain Labs: Recent Labs 05/02/20 0613 05/01/20 0504/30/20 0636 WBC 13.9* 13.5* 17.2* HGB 8.9* 9.2* 9.7* HCT 27.5* 28.6* 31.1* PLATELET 405* 372* 375* Recent Labs 05/02/20 0613 05/01/20 0504/30/20 0636 NA 139 136 135 K 4.0 4.0 3.8 CL 105 104 100 CO2 23 22 22 BUN 28* 29* 34* CREATININE 0.78 0.77 1.05 GLUCOSE 164 170 166 Recent Labs 05/02/20 0613 05/01/20 0523 04/30/20 0636 CALCIUM 8.9 8.8 8.5 MAGNESIUM 0.85 0.89 0.94 Recent Labs 05/02/20 0613 05/01/20 0523 04/30/20 0636 AST 9 10 14 ALT 10 11 12 ALKPHOS 130* 140* 152* BILITOT 0.4 0.4 0.6 Microbiology: 04/22 cholecystic fluid Raoultella ornithinolytica (klebsiella ornithinolytica) VITEK 2 METHOD Amikacin Sensitive Ampicillin + Sulbactam Sensitive Aztreonam Sensitive Ceftazidime <=1 Sensitive Ceftriaxone Sensitive Ertapenem Sensitive Gentamicin Sensitive Levofloxacin Sensitive1 Meropenem <=0.25 Sensitive Piperacillin/Tazobactam <=4 Sensitive Tetracycline Sensitive Tigecycline ?? Sensitive Tobramycin Sensitive Trimethoprim/Sulfa Sensitive Liver Fluid Collection; Culture 04/28 Body Fluid Culture, Aerobic [[id number]] (Abnormal) Collected: 04/28/20 1000 Lab Status: Preliminary result Specimen: Fluid Updated: 04/29/20 1316 Body Fluid Culture One colony of Raoultella ornithinolytica (Klebsiella ornithinolytica)Abnormal Gram Stain --Abnormal Few Neutrophils seen No microorganisms seen. Abnormal Assessment and Plan: Shannan Chaudhary is a 79 y.o. year old female with past medical history of with history of IDDM last A1c 8.5 (03/2020), HTN, HLD, moderate-severe admitted on 04/19/2020 ( Hospital Day 13 days ) presenting with cholecystitis, now s/p percutaneous cholecystostomy and percutaneous liver abscess SIS drain placement. The patient reports new darker heme positive BMs, as well as a slowly downtrending hemoglobin of 1.6 units over 4 days. Given her triple anticoagulation and high risk of bleeding will treat as a suspected slow GIB, will place second large-bore IV and switch to BID IV PPI. Pt remains hemodynamicallystable and will likely have GI evaluation tomorrow for possible upper and lower scopes; however on DAPT, APC and cauterization would be relatively high risk and can worsen bleeding. Will continue to monitor hemograms today. Leukocytosis on Augmentin is stable, given that it seems we have source control. Duration of abx will be for 2 days after SIS drain is removed. Creatinine clearance stable, FORREST appears resolved after fluids. Pt remains in normal sinus on metoprolol and amiodarone 200mg BID (end 05/22); given that the pt is in NSR, and how recently the stent was placed, will keep on DAPT and pull back on apixaban (previous plan was to keep on triple and end aspirin on 05/06; then continuing without ASA and thus only on Plavix and apixaban until periprocedural period (cholecystectomy in ~6 weeks) at which point she should be on DAPT, and then restarting her on Plavix and apixaban). # suspected slow GIB - q6h hemograms today - IV PPI BID - NPO midnight for scopes tomorrow - GI consulted, aware - hold apixaban, continue DAPT given risks of in-stent thrombosis - T+S, tfx > 7 # FORREST, possibly 2/2 diuresis, improving - Restart losartan 25mg QD; Home dose 100mg QD # liver abscess (perhaps partially treated) vs infected fluid collection, s/p SIS drain (04/28) # acute cholecystitis, s/p perq cholecystostomy (04/22) Liver s/p SIS 04/28 - Culture klebsiella Gallbladder s/p perq 04/22 - Culture klebsiella - arron tube growing klebsiella - cholecystectomy in 6 weeks - ID appreciated - monitor daily CBC, BMP, LFTs - pip-tazo from 04/19-04/26, 04/28-3; - Augmenting 875/125 PO BID to be continued until 48hours after liver abscess SIS drain is removed ?? # afib rvr, rate and rhythm controlled now in sinus # cardiogenic shock, resolved # pulmonary edema 2/2 afib-rvr, resolving # HTN # hypokalemia # QTc prolongation - hold apixaban 5mg BID - c/w amiodarone 200mg BID for 1 month per cards - c/w metoprolol 300mg qday - monitor vitals as above - DAPT as above - strict I/O's - daily weights ?? # , moderate-severe # 2v CAD, s/p RCA stents on 04/21 # NSTEMI, likely type II - demand - DAPT today - previous plan: to take off ASA until periprocedural, then resume only on ASA, then afterward onlyon Plavix/apixaban, but will continue to monitor - metoprolol as above - rosuvastatin 20mg qhs - hold amlo in BP - holding PO lasix today - restart losartan 25mg; home dose 100mg - no surgical intervention at this point - pt remains largely asymptomatic ?? # Chronic Medical Conditions: # IDDM, A1c 8.5 - glargine 25 qhs - meal-associated insulin ?? # Routine Diet: Daily Healthy Menu Choices/Cardiac diet ([facility]-Diet) CHO cont DVT prophylaxis: apixaban, ASA, plavix Fluids: PO Access: PIV Dispo: pending Code: Full Code Wilner Esparza MD 05/02/2020 PGY-1, Internal Medicine Red Team - Pager [phone] Associated attestation - Milagros Velazquez MD - 05/02/2020 7:57 PM EDT Attending Attestation Please see Dr Esparza's note for details of the patient history of presentation and data. I have discussed, reviewed and agree with the documented History, Physical findings, Assessment and Plan of care. I have examined the patient myself and personally reviewed all studies. In addition, I certify thatI am a D-H credentialed attending provider with admitting privileges and that the patient meets or has met medical necessity to require an inpatient IPI level of care meeting a minimum of two midnights or is on the [facility] inpatient only procedure list (status C) due to: Hepatic abscess secondary to cholecystitis Concern for new GI bleed -- hold apixaban, continue DAPT. GI consult appreciated with plan for likely EGD tomorrow Has been off diuretic without overt failure. Monitor renal function. Will need followup with both cardiology and general surgery in clinic Will need drain study in 2 weeks (not prior to discharge) * Jeevan Black MD - 05/01/2020 12:29 PM EDT Acute Care Surgery Progress Note ID: Shannan Chaudhary is a 79 y.o. female with PMH IDDM and reported aortic stenosis with valve area 0.8 (records unavailable in [facility] but reviewed by [facility] referring MD) who was admitted in transfer with cholecystitis, now s/p percutaneous cholecystostomy tube Subjective/24 hour events: - WBC downtrending. - Pain well controlled. - Switched to Augmentin. Physical Exam: Last value Range last 24 hrs Temperature Temp: 36.7 ??C (98 ??F) Temp: [36.5 ??C (97.7 ??F)-36.9 ??C (98.4 ??F)] Heart Rate Heart Rate: 60 Heart Rate: [58-70] Blood Pressure BP: 139/48 BP: (122-166)/(41-59) BP (Arterial Line): -- Respiratory Rate Resp: 18 Resp: [16-20] SpO2 SpO2: 97 % SpO2: [94 %-97 %] Physical Exam: General: NAD, resting comfortably, pleasant, conversant Neuro: grossly intact, nonfocal, moving all four extremities spontaneously HEENT: NCAT, anicteric sclera CVS: irregularly irregular Pulm: non-labored breathing Abd: soft, nondistended, non-tender Perc arron tube site with no erythema or drainage and bile in bag. Abscess drain with minimal fluid. Skin: warm, dry Intake/Output Summary (Last 24 hours) at 05/01/2020 1229 Last data filed at 05/01/2020 0832 Gross per 24 hour Intake 1120 ml Output 1887 ml Net -767 ml Labs: Recent Labs 05/01/20 0523 04/30/20 0636 04/29/20 0417 WBC 13.5* 17.2* 18.0* HGB 9.2* 9.7* 9.8* HCT 28.6* 31.1* 30.1* PLATELET 372* 375* 397* Recent Labs 05/01/20 0523 04/30/20 0636 04/29/20 0417 NA 136 135 136 K 4.0 3.8 3.9 CL 104 100 103 CO2 22 22 22 BUN 29* 34* 28* CREATININE 0.77 1.05 0.96 GLUCOSE 170 166 152 No results for input(s): PT, INR in the last 72 hours. Invalid input(s): PTT Assessment/Plan: 79y F w/ severe (valve area 0.8) transferred to [facility] with acute cholecystitis. Unable to performcholecystectomy 2/2 recent PCI with two stents requiring DAPT x 6 weeks. Now s/p cholecystostomy tube and IR placed drain into arabella-hepatic abscess. WBC continues to downtrending and her pain is much improved. She will need an IR drain study in 2 weeks. Follow up with general surgery with cholecystostomy tube study in 6 weeks. Please do not hesitate to page [phone] with any questions or concerns. Jeevan Black MD General Surgery 05/01/2020 * Helen Barker DT - 05/01/2020 11:01 AM EDT Nutrition Services Note - Low Nutrition Acuity Shannan Chaudhary is a 79 y.o. female Reason for intervention: follow up Nutrition Plan: Continue current diet. Multivitamin with minerals. Monitor weight. Encourage good oral intake. Support and encouragement provided. Pt declined offer of supplements/ high protein snacks. Active Orders Diet Daily Healthy Menu Choices/Cardiac diet ([facility]-Diet) 60/60/75 CHO counting level 2 Frequency: Effective Now Number of Occurrences: Until Specified Admit Weight: 86.18 kg Estimated body mass index is 35.99 kg/m?? as calculated from the following: Height as of this encounter: 152.4 cm (5'). Weight as of this encounter: 83.6 kg (184 lb 4.9 oz). Wt Readings from Last 5 Encounters: 04/28/20 83.6 kg (184 lb 4.9 oz) 02/28/17 88.8 kg (195 lb 11.2 oz) 10/03/16 85 kg (187 lb 4.8 oz) 06/22/15 84.6 kg (186 lb 9.6 oz) 11/16/14 83.9 kg (185 lb) Weight loss: not clinically significant Appetite: Excellent (75%-100%) Food allergies:no known food allergies Chewing/Swallowing difficulty: none Nausea/Vomiting: no nausea and no vomiting Last Bowel Movement: 05/01/20 Patient education / questions: all nutrition related questions answered at this time Nutrition services to follow weekly through hospital course unless consulted in the interim. SULEMAN Lopes Pager: [phone] * Davon Leung MD - 05/01/2020 8:21 AM EDT [facility] Red Team Inpatient Progress Note ID: Shannan Chaudhary is a 79 y.o. year old female with past medical history of IDDM last A1c 8.5 (03/2020), HTN, HLD, moderate-severe admitted on 04/19/2020 ( Hospital Day 12 days ) for cholecystitis. Active Hospital Problems Diagnosis ??? 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 Aortic stenosis - moderate ??? Atrial fibrillation--- paroxysmal ??? Cholecystitis Resolved Hospital Problems No resolved problems to display. Interval History: - Leukocytosis improving this AM (17.5 ->13.5) - Per ID: Augmenting 875/125 PO BID to be continued until 48hours after liver abscess SIS drain is removed - Follow-up with IR scheduled 05/19 - Plan for triple AC: STOP ASA in 1 week; for IR evaluation - EKG (04/30): sinus bradycardia - on metoprolol and amiodarone - Lasix and [place] held since 04/28 for FORREST - No active complaints at this time; pain is improved with prn oxycodone Meds: ??? melatonin 6 mg Oral Nightly ??? amoxicillin-clavulanate 1 tablet Oral BID ??? apixaban 5 mg Oral BID ??? metoprolol succinate XL 300 mg Oral Nightly ??? rosuvastatin 20 mg Oral QPM ??? pantoprazole EC 40 mg Oral Daily ??? AMIOdarone 200 mg Oral BID ??? aspirin 81 mg Oral Daily ??? clopidogreL 75 mg Oral Daily ??? acetaminophen 1,000 mg Oral Q8H ??? polyethylene glycoL (MIRALAX) oral powder 17 g Oral Daily ??? senna-docusate 2 tablet Oral BID ??? sodium chloride 0.9 % (flush) 5 mL Intravenous BID ??? insulin lispro 1-4 Units Subcutaneous Q4H BASIL ??? insulin glargine 25 Units Subcutaneous Nightly PRN medications labetaloL, bisacodyl EC, sodium chloride 0.9 % (flush), oxyCODONE, glucose 40% oralgeL OR dextrose 10% OR glucagon (human recombinant) Current Facility-Administered Medications Medication Dose Route Frequency ??? labetalol (NORMODYNE,TRANDATE) injection 20 mg 20 mg Intravenous Q2H PRN ??? bisacodyl EC (Dulcolax) tablet 10 mg 10 mg Oral Daily PRN ??? sodium chloride 0.9 % (flush) flush 5-20 mL 5-20 mL Intravenous Q1 Min PRN ??? oxyCODONE (Roxicodone) tablet 5 mg 5 mg Oral Q4H PRN ??? glucose (GLUTOSE) 40% oral geL 15-30 g Buccal Q30 Min PRN Or ??? dextrose 10% infusion 250 mL Intravenous Q30 Min PRN Or ??? glucagon (human recombinant) injection SolR 1 mg 1 mg Intramuscular Q30 Min PRN Physical Exam: Last value Range last 24 hrs Temperature Temp: 36.6 ??C (97.9 ??F) Temp: [36.5 ??C (97.7 ??F)-36.9 ??C (98.4 ??F)] Heart Rate Heart Rate: 60 Heart Rate: [58-70] Blood Pressure BP: 151/54 BP: (122-166)/(41-59) Respiratory Rate Resp: 20 Resp: [16-20] SpO2 SpO2: 97 % SpO2: [94 %-97 %] Intake/Output Summary (Last 24 hours) at 05/01/2020 0821 Last data filed at 05/01/2020 0746 Gross per 24 hour Intake 760 ml Output 2257 ml Net -1497 ml Patient Vitals for the past 168 hrs: Weight 04/28/20 0500 83.6 kg (184 lb 4.9 oz) Admit wt: 86.18 kg Gen: AOx3, NAD on RA. HEENT: sclera clear, anicteric. Neck supple. CV: rrr, nl s1/s2 without m/r/g. 3/6 holosystolic murmur Resp: lungs clear to auscultation b/l without rales or rhonchi, good inspiratory effort. GI: +bs, soft, nt/nd. Cholecystectomy drain in place with yellow-green clear fluid, SIS drain with small vol serosanguinous fluid. Wound site well-dressed, minimally tender Skin: warm, well-perfused, no LE edema, no rash. Neuro: grossly nonfocal exam, spontaneously moves all extremities Musculoskeletal: no joint swelling or pain Labs: Recent Labs 05/01/2052204/30/2036 04/29/20 0417 WBC 13.5* 17.2* 18.0* HGB 9.2* 9.7* 9.8* HCT 28.6* 31.1* 30.1* PLATELET 372* 375* 397* Recent Labs 05/01/2052204/30/2036 04/29/20 0417 NA 136 135 136 K 4.0 3.8 3.9 CL 104 100 103 CO2 22 22 22 BUN 29* 34* 28* CREATININE 0.77 1.05 0.96 GLUCOSE 170 166 152 Recent Labs 05/01/2052204/30/2036 04/29/20 0417 CALCIUM 8.8 8.5 8.5 MAGNESIUM 0.89 0.94 0.83 Recent Labs 05/01/2052204/30/20 0636 04/29/20 0417 AST 10 14 15 ALT 11 12 16 ALKPHOS 140* 152* 177* BILITOT 0.4 0.6 0.5 Microbiology: 04/22 cholecystic fluid Raoultella ornithinolytica (klebsiella ornithinolytica) VITEK 2 METHOD Amikacin Sensitive Ampicillin + Sulbactam Sensitive Aztreonam Sensitive Ceftazidime <=1 Sensitive Ceftriaxone Sensitive Ertapenem Sensitive Gentamicin Sensitive Levofloxacin Sensitive1 Meropenem <=0.25 Sensitive Piperacillin/Tazobactam <=4 Sensitive Tetracycline Sensitive Tigecycline ?? Sensitive Tobramycin Sensitive Trimethoprim/Sulfa Sensitive Liver Fluid Collection; Culture 04/28 Body Fluid Culture, Aerobic [[id number]] (Abnormal) Collected: 04/28/20 1000 Lab Status: Preliminary result Specimen: Fluid Updated: 04/29/20 1316 Body Fluid Culture One colony of Raoultella ornithinolytica (Klebsiella ornithinolytica)Abnormal Gram Stain --Abnormal Few Neutrophils seen No microorganisms seen. Abnormal Assessment and Plan: Shannan Chaudhary is a 79 y.o. year old female with past medical history of with history of IDDM last A1c 8.5 (03/2020), HTN, HLD, moderate-severe admitted on 04/19/2020 ( Hospital Day 12 days ) presenting with cholecystitis, now s/p percutaneous cholecystostomy and percutaneous liver abscess SIS drain placement. The patient is now hemodynamically stable and remains afebrile and without systemic complaints, butcontinues to have a leukocytosis while on cipro and Metronidazole PO, and with source control. Duration of abx will be for 2 days after SIS drain is removed. Given acuity of formation of subdiaphragmatic mass and growth of same klebsiella subspecies, likelyetiology is post-procedural seeding of klebsiella infection in gallbladder distally (the risks of which increase with diabetes). Pt with rising BUN and Cr and worsening FORREST though still overall mild, appears pre-renal even [id number] LR yesterday. Will give 500cc gently today. For pt afib with RVR, currently on rate and rhythm control without RVR overnight on telemonitoring.Will continue amiodarone 200mg BID per cardiology recs. Pt remains on triple AC given DAPT + apixaban, and per conversation with cardiology, recommend being on triple AC for 1 more week (end 05/06), continuing without ASA and thus only on Plavix and apixaban until periprocedural period (cholecystectomy in ~6 weeks) at which point she should be on DAPT, and then restarting her on Plavix and apixaban. Will contact [facility] moving forward with with this plan. # FORREST, possibly 2/2 diuresis, improving - Cont to hold lasix and spironolactone - Restart losartan 25mg QD; Home dose 100mg QD # liver abscess (perhaps partially treated) vs infected fluid collection, s/p SIS drain (04/28) # acute cholecystitis, s/p perq cholecystostomy (04/22) Liver s/p SIS 04/28 - Culture klebsiella Gallbladder s/p perq 04/22 - Culture klebsiella - arron tube growing klebsiella - cholecystectomy in 6 weeks - ID appreciated - monitor daily CBC, BMP, LFTs - pip-tazo from 04/19-04/26, 04/28-3; - Augmenting 875/125 PO BID to be continued until 48hours after liver abscess SIS drain is removed ?? # afib rvr, rate and rhythm controlled now in sinus # cardiogenic shock, resolved # pulmonary edema 2/2 afib-rvr, resolving # HTN # hypokalemia # QTc prolongation - resume apixaban 5mg BID - c/w amiodarone 200mg BID for 1 month per cards - c/w metoprolol 300mg qday - monitor vitals as above - DAPT as above - strict I/O's - daily weights ?? # , moderate-severe # 2v CAD, s/p RCA stents on 04/21 # NSTEMI, likely type II - demand - DAPT with understanding pt is now on triple AC - will take off ASA until periprocedural, then resume only on ASA, then afterward only on Plavix/apixaban - metoprolol as above - rosuvastatin 20mg qhs - hold amlo in BP - holding PO lasix today - restart losartan 25mg; home dose 100mg - no surgical intervention at this point - pt remains largely asymptomatic - trops plateaud, d/c'd ?? # Chronic Medical Conditions: # IDDM, A1c 8.5 - glargine 25 qhs - meal-associated insulin ?? # Routine Diet: Daily Healthy Menu Choices/Cardiac diet ([facility]-Diet) CHO cont DVT prophylaxis: apixaban, ASA, plavix Fluids: PO Access: PIV Dispo: pending Code: Full Code Davon Leung MD 05/01/2020 PGY-2, Internal Medicine Red Team - Pager [phone] Associated attestation - Milagros Velazquez MD - 05/01/2020 5:23 PM EDT Attending Attestation Please see Ngs note for details of the patient history of presentation and data. I have discussed, reviewed and agree with the documented History, Physical findings, Assessment and Plan of care. I have examined the patient myself and personally reviewed all studies. In addition, I certify thatI am a D-H credentialed attending provider with admitting privileges and that the patient meets or has met medical necessity to require an inpatient IPI level of care meeting a minimum of two midnights or is on the [facility] inpatient only procedure list (status C) due to: Hepatic abscess secondary to cholecystitis Has been off diuretic without overt failure. Volume depletion on exam yesterday and received IVF bolus. Monitor renal function. Will need followup with both cardiology and general surgery in clinic Will need drain study in 2 weeks (not prior to discharge) * Gracia Trivedi, RN - 04/30/2020 5:09 PM EDT OUTCOME EVALUATION NOTE: OUTCOME SUMMARY: Pt is alert and oriented x4. She is pleasant and cooperative with care. Rings appropriately. She willy SBA. Drain dressings remain CDI. Output as charted. PLAN MOVING FORWARD: Pain management IR and SIS drain Safe discharge planning INDIVIDUALIZED FALL PREVENTION INTERVENTIONS: Patient-specific fall risk factors per assessment: [current deficits]: Unfamiliar environment, generalized weakness, lines and drains. Assistance [level of assistance required for transfers and ambulation]: SBA Supervision [direct monitoring required during toileting and ADLs]: Eyes on Surveillance [continuous indirect monitoring]: Purposeful rounding, room near nurses [facility]. Patient-specific fall prevention interventions for sensory deficits provided, if applicable: [X] No * Veda Avila, - 04/30/2020 1:31 PM EDT BREIF ID FOLLOW UP NOTE: Active ID Issue(s): 1. Liver abscess - one colony of Raoutella ornithinolytica (Klebsiella ornitholytica) 2. Cholecystitis- many Raoutella ornithinolytica (Klebsiella ornitholytica) ?? Shannan Chaudhary is a 79 y.o. female with acute cholecystitis and newly found liver abscess. Due to her severe and recent cardiac sent placement, surgical intervention could not be done due to the necessity of DAPT continuation. Surgical team is planning for cholecystectomy in 6 weeks. She was also found to have a new liver abscess on this admission and it is unclear what the initial source of this is. Considering both cholecystostomy tube fluid and liver abscess fluid are growing Raoutellaornithinolytica (Klebsiella ornitholytica), she may have had a brief bacteremia when cholecystostomy tube was placed or even prior to that. No previous blood cultures were taken. She also mentioned arecent dental procedure so she may have seeded a bacteremia from a dental source. Considering her overall clinical improvement, she can be transitioned to oral therapy. Blood cultures pending. Primary team noted QTc 490 so will avoid Ciprofloxacin. ?? Recommendations: - Can STOP Ciprofloxacin+ Metronidazole and change to Augmentin 875/125mg PO BID to be continued until 48h after liver abscess SIS drain is removed. ID will sign off. Please contact us if any questions arise Discussed with Dr. Gretchen Avila, DO Infectious Diseases Fellow- PGY4 Pager: [phone] 04/30/2020 1:37 PM Associated attestation - Harris Godinez MD - 04/30/2020 11:52 PM EDT ID Attending Addendum: I have seen and examined this patient. I have reviewed and agree with the findings and plan of careas documented in Dr. Avila's note. The assessment and plan were formulated in discussion with me. Given a QTc of 490ms, we opted to switch from PO ciprofloxacin/metronidazole to Augmentin 875/125mg PO BID to treat her purulent cholecystitis and her arabella-hepatic abscess that both grew Raoultella ornithinolytica. This was susceptible to ampicillin-sulbactam, predicting susceptibility to Augmentin (amoxicillin-clavulanate). We followed up with her dentist, as Ms. Chaudhary reported an allergy to an unknown antibiotic. Her dentist reports that she had myalgias on an unknown medication, but he denied having a report of rash or anaphylaxis on any antibiotic. Harris Godinez MD * Hong Zavala RN - 04/30/2020 10:23 AM EDT Case Management Discharge Plan DISCHARGE PLANNING Anticipated Discharge Disposition: Home w/ VNA Expected DC Date: 05/01- Steps Taken Toward Discharge: Not medically ready today. BUN/Cr continue to rise. Can possibly discharge over the weekend home w/ VNA services. Next Steps: Will follow through to discharge as need arise. Barriers to Discharge: None Electronically signed: Hong Zavala RN, [employer] Pgr: [phone] 04/30/2020 10:23 AM * Wilner Esparza MD - 04/30/2020 8:08 AM EDT [facility] - Red Team Inpatient Progress Note ID: Shannan Chaudhary is a 79 y.o. year old female with past medical history of IDDM last A1c 8.5 (03/2020), HTN, HLD, moderate-severe admitted on 04/19/2020 ( Hospital Day 11 days ) for cholecystitis. Active Hospital Problems Diagnosis ??? 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 Aortic stenosis - moderate ??? Atrial fibrillation--- paroxysmal ??? Cholecystitis Resolved Hospital Problems No resolved problems to display. Interval History: - leukocytosis steady from yesterday - per ID, now on cipro BID and metronidazole TID PO regimen - will continue with antibiotics until 2 days after liver drain is removed - plan for triple AC: remove ASA in 1 week. Perioperatively can be on DAPT (may not need cholecystectomy per gensurg) and afterward can be on apixaban and Plavix. - pt without complaints; abdominal pain is improved with oxycodone. No fevers, dyspnea, chest pain,pleurisy. - BUN and creatinine continue to rise; received 250cc LR yesterday Meds: ??? apixaban 5 mg Oral BID ??? metroNIDAZOLE 500 mg Oral TID ??? ciprofloxacin 500 mg Oral BID ??? metoprolol succinate XL 300 mg Oral Nightly ??? rosuvastatin 20 mg Oral QPM ??? losartan 100 mg Oral Daily ??? pantoprazole EC 40 mg Oral Daily ??? AMIOdarone 200 mg Oral BID ??? aspirin 81 mg Oral Daily ??? clopidogreL 75 mg Oral Daily ??? acetaminophen 1,000 mg Oral Q8H ??? polyethylene glycoL (MIRALAX) oral powder 17 g Oral Daily ??? senna-docusate 2 tablet Oral BID ??? sodium chloride 0.9 % (flush) 5 mL Intravenous BID ??? insulin lispro 1-4 Units Subcutaneous Q4H BASIL ??? insulin glargine 25 Units Subcutaneous Nightly PRN medications labetalol, bisacodyl EC, sodium chloride 0.9 % (flush), oxyCODONE, glucose 40% oralgeL OR dextrose 10% OR glucagon (human recombinant) Current Facility-Administered Medications Medication Dose Route Frequency ??? labetalol (NORMODYNE,TRANDATE) injection 20 mg 20 mg Intravenous Q2H PRN ??? bisacodyl EC (Dulcolax) tablet 10 mg 10 mg Oral Daily PRN ??? sodium chloride 0.9 % (flush) flush 5-20 mL 5-20 mL Intravenous Q1 Min PRN ??? oxyCODONE (Roxicodone) tablet 5 mg 5 mg Oral Q4H PRN ??? glucose (GLUTOSE) 40% oral geL 15-30 g Buccal Q30 Min PRN Or ??? dextrose 10% infusion 250 mL Intravenous Q30 Min PRN Or ??? glucagon (human recombinant) injection SolR 1 mg 1 mg Intramuscular Q30 Min PRN Physical Exam: Last value Range last 24 hrs Temperature Temp: 36.7 ??C (98.1 ??F) Temp: [36.6 ??C (97.9 ??F)-37.2 ??C (99 ??F)] Heart Rate Heart Rate: 61 Heart Rate: [61-72] Blood Pressure BP: 132/56 BP: (115-163)/(43-62) Respiratory Rate Resp: 18 Resp: [18-22] SpO2 SpO2: 96 % SpO2: [95 %-97 %] Intake/Output Summary (Last 24 hours) at 04/30/2020 0808 Last data filed at 04/30/2020 0420 Gross per 24 hour Intake 350 ml Output 585 ml Net -235 ml Patient Vitals for the past 168 hrs: Weight 04/28/20 0500 83.6 kg (184 lb 4.9 oz) Admit wt: 86.18 kg Gen: AOx3, NAD on RA. HEENT: sclera clear, anicteric. Neck supple. CV: rrr, nl s1/s2 without m/r/g Resp: lungs clear to auscultation b/l without rales or rhonchi, good inspiratory effort. GI: +bs, soft, nt/nd. Cholecystectomy drain in place with yellow-green clear fluid, SIS drain with small vol serosanguinous fluid. Wound site well-dressed, minimally tender Skin: warm, well-perfused, no LE edema, no rash. Neuro: grossly nonfocal exam, spontaneously moves all extremities Musculoskeletal: no joint swelling or pain Labs: Recent Labs 04/30/2036 04/29/20 0417 04/28/20 0405 WBC 17.2* 18.0* 14.8* HGB 9.7* 9.8* 10.5* HCT 31.1* 30.1* 32.5* PLATELET 375* 397* 421* Recent Labs 04/30/20 0636 04/29/20 0417 04/28/20 0405 NA 135 136 137 K 3.8 3.9 3.5 CL 100 103 105 CO2 22 22 21* BUN 34* 28* 16 CREATININE 1.05 0.96 0.80 GLUCOSE 166 152 149 Recent Labs 04/30/20 0636 04/29/20 0417 04/28/20 0405 CALCIUM 8.5 8.5 8.7 MAGNESIUM 0.94 0.83 0.78 Recent Labs 04/30/20 0636 04/29/20 0417 04/28/20 0405 AST 14 15 12 ALT 12 16 12 ALKPHOS 152* 177* 201* BILITOT 0.6 0.5 0.4 Microbiology: 04/22 cholecystic fluid Raoultella ornithinolytica (klebsiella ornithinolytica) VITEK 2 METHOD Amikacin Sensitive Ampicillin + Sulbactam Sensitive Aztreonam Sensitive Ceftazidime <=1 Sensitive Ceftriaxone Sensitive Ertapenem Sensitive Gentamicin Sensitive Levofloxacin Sensitive1 Meropenem <=0.25 Sensitive Piperacillin/Tazobactam <=4 Sensitive Tetracycline Sensitive Tigecycline ?? Sensitive Tobramycin Sensitive Trimethoprim/Sulfa Sensitive No growth from liver fluid collection on 04/28 Assessment and Plan: Shannan Chaudhary is a 79 y.o. year old female with past medical history of with history of IDDM last A1c 8.5 (03/2020), HTN, HLD, moderate-severe admitted on 04/19/2020 ( Hospital Day 11 days ) presenting with cholecystitis, now s/p percutaneous cholecystostomy and percutaneous liver abscess SIS drain placement. The patient is now hemodynamically stable and remains afebrile and without systemic complaints, butcontinues to have a leukocytosis while on cipro and Metronidazole PO, and with source control. Duration of abx will be for 2 days after SIS drain is removed. Given acuity of formation of subdiaphragmatic mass and growth of same klebsiella subspecies, likelyetiology is post-procedural seeding of klebsiella infection in gallbladder distally (the risks of which increase with diabetes). Pt with rising BUN and Cr and worsening FORREST though still overall mild, appears pre-renal even [id number] LR yesterday. Will give 500cc gently today. For pt afib with RVR, currently on rate and rhythm control without RVR overnight on telemonitoring.Will continue amiodarone 200mg BID per cardiology recs. Pt remains on triple AC given DAPT + apixaban, and per conversation with cardiology, recommend being on triple AC for 1 more week (end 05/06), continuing without ASA and thus only on Plavix and apixaban until periprocedural period (cholecystectomy in ~6 weeks) at which point she should be on DAPT, and then restarting her on Plavix and apixaban. Will contact jigl moving forward with with this plan. # FORREST, possibly 2/2 diuresis - hold lasix today - gentle 250 cc LR yesterday, another 500 cc today - holding losartan today given persistent FORREST - consider urineing studies # liver abscess (perhaps partially treated) vs infected fluid collection, s/p SIS drain (04/28) # acute cholecystitis, s/p perq cholecystostomy (04/22) - liver s/p SIS 04/28 - gallbladder s/p perq 04/22 - arron tube growing klebsiella - cholecystectomy in 6 weeks - ID appreciated - pip-tazo from 04/19-04/26, 04/28-3; - monitor daily CBC, BMP, LFTs - f/u cultures - cipro 500mg BID and metro 500mg TID until 2 days after removal of drain ?? # afib rvr, rate and rhythm controlled now in sinus # cardiogenic shock, resolved # pulmonary edema 2/2 afib-rvr, resolving # HTN # hypokalemia # QTc prolongation - resume apixaban 5mg BID - c/w amiodarone 200mg BID for 1 month per cards - c/w metoprolol 300mg qday - monitor vitals as above - DAPT as above - strict I/O's - daily weights - repeat EKG tomorrow - consider d/c cipro, pending convo with ID about QTc and PO abx ?? # , moderate-severe # 2v CAD, s/p RCA stents on 04/21 # NSTEMI, likely type II - demand - DAPT with understanding pt is now on triple AC - will take off ASA until periprocedural, then resume only on ASA, then afterward only on Plavix/apixaban - metoprolol as above - losartan 100mg, reassess FORREST as below - rosuvastatin 20mg qhs - hold amlo in BP - holding PO lasix today - no surgical intervention at this point - pt remains largely asymptomatic - trops plateaud, d/c'd ?? # Chronic Medical Conditions: # IDDM, A1c 8.5 - glargine 25 qhs - meal-associated insulin ?? # Routine Diet: Daily Healthy Menu Choices/Cardiac diet ([facility]-Diet) CHO cont DVT prophylaxis: apixaban Fluids: PO Access: PIV Dispo: pending Code: Full Code Wilner Esparza MD 04/30/2020 PGY-1, Internal Medicine Red Team - Pager [phone] Associated attestation - Dale Gonzáles MD - 04/30/2020 12:04 PM EDT Attending Attestation Please see Vilma's note for details of the patient history of presentation and data. I have discussed, reviewed and agree with the documented History, Physical findings, Assessment and Plan of care. I have examined the patient myself and personally reviewed all studies. In addition, I certify thatI am a [facility] credentialed attending provider with admitting privileges and that the patient meets or has met medical necessity to require an inpatient IPI level of care meeting a minimum of two midnights or is on the CMS inpatient only procedure list (status C) due to: Hepatic abscess secondary to cholecystitis Appreciate ID recommendations regards to antibiotic therapy. However, would ask ID to consider another agent as QTC currently is [phone], and will be hesitant to start ciprofloxacin with recent addition of amiodarone. Regardless, patient will need antibiotics until SIS drain can be removed. Patient will require an IRsinogram prior to discharge as well. * Jos Garrison MD - 04/30/2020 7:54 AM EDT Acute Care Surgery Progress Note ID: Shannan Chaudhary is a 79 y.o. female with PMH IDDM and reported aortic stenosis with valve area 0.8 (records unavailable in [facility] but reviewed by [facility] referring MD) who was admitted in transfer with cholecystitis, now s/p percutaneous cholecystostomy tube Subjective/24 hour events: - WBC 17 from 18 yesterday - Still having some abdominal pain which is exacerbated by movement, but states it is improving. - Asking about going home. - Growing sensitive klebsiella in both arron tube and IR abscess drain. - ID recommending cipro/flagyl Physical Exam: Last value Range last 24 hrs Temperature Temp: 36.7 ??C (98.1 ??F) Temp: [36.6 ??C (97.9 ??F)-37.2 ??C (99 ??F)] Heart Rate Heart Rate: 61 Heart Rate: [61-72] Blood Pressure BP: 132/56 BP: (115-163)/(43-62) BP (Arterial Line): -- Respiratory Rate Resp: 18 Resp: [18-22] SpO2 SpO2: 96 % SpO2: [95 %-97 %] Physical Exam: General: NAD, resting comfortably, pleasant, conversant Neuro: grossly intact, nonfocal, moving all four extremities spontaneously HEENT: NCAT, anicteric sclera CVS: irregularly irregular Pulm: non-labored breathing Abd: soft, nondistended, TTP in RUQ. Perc arrno tube site with no erythema or drainage and bile in bag. Abscess drain with minimal fluid. Skin: warm, dry Intake/Output Summary (Last 24 hours) at 04/30/2020 0754 Last data filed at 04/30/2020 0420 Gross per 24 hour Intake 350 ml Output 585 ml Net -235 ml Labs: Recent Labs 04/30/20 0636 04/29/20 0417 04/28/20 0405 WBC 17.2* 18.0* 14.8* HGB 9.7* 9.8* 10.5* HCT 31.1* 30.1* 32.5* PLATELET 375* 397* 421* Recent Labs 04/30/20 0636 04/29/20 0417 04/28/20 0405 NA 135 136 137 K 3.8 3.9 3.5 CL 100 103 105 CO2 22 22 21* BUN 34* 28* 16 CREATININE 1.05 0.96 0.80 GLUCOSE 166 152 149 No results for input(s): PT, INR in the last 72 hours. Invalid input(s): PTT Assessment/Plan: 79y F w/ severe (valve area 0.8) transferred to [facility] with acute cholecystitis. Unable to performcholecystectomy 2/2 recent PCI with two stents requiring DAPT x 6 weeks. Now s/p cholecystostomy tube and IR placed drain into arabella-hepatic abscess. WBC continues to be elevated and having some pain in RUQ although states it is a little better. ID recommending cipro/flagyl while she has her drains.Keep cholecystostomy tube open and draining. Follow up cultures. General surgery will continue to follow. Jeevan Black MD General Surgery 04/30/2020 Attending Addendum I have seen and examined the patient and reviewed the history documented above and I agree with thedetails as written. I have reviewed the laboratory data and viewed the pertinent imaging. The assessment and plan were formulated in discussion with me and I agree with them as documented. Continued benign abdominal exam, Wbc slowly coming down. WIll need cholecystostomy tube study in 6 weeks with general surgery follow up at that time. Will determine planning for cholecystectomy at that time. Continue with IR drain and will need IR drain tube study in 2 weeks. Gege Garrison MD * Jos Garrison MD - 04/29/2020 3:14 PM EDT Acute Care Surgery Progress Note ID: Shannan Chaudhary is a 79 y.o. female with PMH IDDM and reported aortic stenosis with valve area 0.8 (records unavailable in [facility] but reviewed by [facility] referring MD) who was admitted in transfer with cholecystitis, now s/p percutaneous cholecystostomy tube Subjective/24 hour events: - IR guided arabella-hepatic abscess drain yesterday. - Has some abdominal pain this morning. - Denies RUQ pain. - tolerating diet. - WBC increased to 18 from 14.8 yesterday. Physical Exam: Last value Range last 24 hrs Temperature Temp: 37.2 ??C (99 ??F) Temp: [37.1 ??C (98.8 ??F)-37.6 ??C (99.7 ??F)] Heart Rate Heart Rate: 58 Heart Rate: [58-73] Blood Pressure BP: 115/43 BP: (115-151)/(43-90) BP (Arterial Line): -- Respiratory Rate Resp: 20 Resp: [20-28] SpO2 SpO2: 97 % SpO2: [93 %-97 %] Physical Exam: General: NAD, resting comfortably, pleasant, conversant Neuro: grossly intact, nonfocal, moving all four extremities spontaneously HEENT: NCAT, anicteric sclera CVS: irregularly irregular Pulm: non-labored breathing Abd: soft, nondistended, nontender. Perc arron tube site with no erythema or drainage and bile in bag. Abscess drain with minimal fluid. Skin: warm, dry Intake/Output Summary (Last 24 hours) at 04/29/2020 1514 Last data filed at 04/29/2020 1100 Gross per 24 hour Intake 971 ml Output 1425 ml Net -454 ml Labs: Recent Labs 04/29/2041604/28/205 04/27/20 0441 WBC 18.0* 14.8* 15.1* HGB 9.8* 10.5* 10.3* HCT 30.1* 32.5* 32.1* PLATELET 397* 421* 422* Recent Labs 04/29/2041604/28/20 0405 04/27/20 0441 NA 136 137 138 K 3.9 3.5 3.5 CL 103 105 103 CO2 22 21* 23 BUN 28* 16 12 CREATININE 0.96 0.80 0.63* GLUCOSE 152 149 167 No results for input(s): PT, INR in the last 72 hours. Invalid input(s): PTT Assessment/Plan: 79y F w/ severe (valve area 0.8) transferred to [facility] with acute cholecystitis. Unable to performcholecystectomy 2/2 recent PCI with two stents requiring DAPT x 6 weeks. Now s/p cholecystostomy tube and IR placed drain into arabella-hepatic abscess. Today her WBC is up and she having some pain closeto the drain. These are both likely 2/2 recent procedure. Will follow up cultures and WBC tomorrow. Jeevan Black MD General Surgery 04/29/2020 Attending Addendum I have seen and examined the patient and reviewed the history documented above and I agree with thedetails as written. I have reviewed the laboratory data and viewed the pertinent imaging. The assessment and plan were formulated in discussion with me and I agree with them as documented. Continue to follow drain outputs. Keep cholecystostomy tube open and draining to gravity drain. Follow wbc and cultures. Continue on abx for now. Gege Garrison MD * YamilMiguel S - 04/29/2020 11:20 AM EDT Inpatient - Progress Note Admit Date: 04/19/2020 Hospital Day 10 days Problem List: Active Hospital Problems Diagnosis ??? 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 Aortic stenosis - moderate ??? Atrial fibrillation--- paroxysmal ??? Cholecystitis Resolved Hospital Problems No resolved problems to display. Active Non-Hospital Problems Diagnosis ??? Type 2 diabetes mellitus ??? Hypertension ??? Hyperlipidemia ??? Arthritis ??? Actinic keratosis ??? Seborrheic keratosis 24 Hour Events: No acute events. Subjective: Feeling well this morning. Slept well, woke with good appetite. Describes normal voiding and stooling. Ambulates without assistance to bathroom. RUQ pain has decreased since yesterday but still present. No chest pain or pressure, lightheadedness, or syncope. Describes some production from both percutaneous cholestomy tube and from liver abscess drain, neither site is painful or red. Do difficultybreathing or new cough. Physical Exam: Last Set of Vitals and range of vitals over past 24 hours: Last value Range last 24 hrs Temperature Temp: 37.1 ??C (98.8 ??F) Temp: [37.1 ??C (98.8 ??F)-37.6 ??C (99.7 ??F)] Heart Rate Heart Rate: 58 Heart Rate: [58-73] Blood Pressure BP: 150/57 BP: (116-151)/(40-90) Respiratory Rate Resp: 20 Resp: [16-28] SpO2 SpO2: 96 % SpO2: [93 %-97 %] Physical Exam General: Well appearing, sitting upright in chair eating breakfast. HEENT: Eyes anicteric CV: S1,S2 with 4/6 systolic crescendo-decrescendo murmur Extremities: No edema Laboratory (Last 24 Hours): Recent Results (from the past 24 hour(s)) POCT Glucose Result Value Ref Range POC Glucose 135 65 - 199 mg/dL POCT Glucose Result Value Ref Range POC Glucose 185 65 - 199 mg/dL POCT Glucose Result Value Ref Range POC Glucose 205 (H) 65 - 199 mg/dL POCT Glucose Result Value Ref Range POC Glucose 171 65 - 199 mg/dL POCT Glucose Result Value Ref Range POC Glucose 152 65 - 199 mg/dL Comprehensive metabolic panel (non-fasting) Result Value Ref Range Glucose Lvl 152 65 - 199 mg/dL BUN 28 (H) 8 - 18 mg/dL Creatinine 0.96 0.70 - 1.20 mg/dL Sodium 136 135 - 145 mmol/L Potassium 3.9 3.5 - 5.0 mmol/L Chloride 103 98 - 107 mmol/L CO2 22 22 - 31 mmol/L Anion Gap 11 5 - 15 mmol/L Calcium 8.5 8.5 - 10.5 mg/dL Total Protein 6.0 (L) 6.1 - 8.0 gm/dL Albumin 2.8 (L) 3.2 - 5.2 gm/dL AST 15 0 - 30 unit/L ALT 16 0 - 30 unit/L Alk Phos 177 (H) 35 - 105 unit/L Total Bilirubin 0.5 0.2 - 1.3 mg/dL eGFR 56 (L) >=60 mL/min/1.73 m?? eGFR 65 >=60 mL/min/1.73 m?? Magnesium Result Value Ref Range Magnesium 0.83 0.69 - 1.07 mmol/L Hemogram Result Value Ref Range WBC 18.0 (H) 4.0 - 9.5 x10(3)/mcL RBC 3.63 (L) 4.00 - 5.21 x10(6)/mcL Hemoglobin 9.8 (L) 11.7 - 15.5 gm/dL Hematocrit 30.1 (L) 35.7 - 45.8 % MCV 82.9 82.6 - 94.4 fL MCH 27.0 (L) 27.1 - 32.0 pg MCHC 32.6 31.7 - 35.0 gm/dL Platelets 397 (H) 145 - 357 x10(3)/mcL RDWSD 44.8 37.0 - 46.0 fL RDWCV 14.8 (H) 11.5 - 14.1 % MPV 9.7 7.6 - 12.9 fL nRBC % Auto 0.0 % nRBC Abs Auto 0.000 0.000 - 0.000 x10(3)/mcL Differential, Automated Result Value Ref Range Neutrophils % 78.6 % Neutr Abs (ANC) 14.16 (H) 1.70 - 6.10 x10(3)/mcL Lymphocytes % 10.5 % Lymphocytes Abs 1.9 0.9 - 3.2 x10(3)/mcL Monocytes % 6.4 % Monocyte Abs 1.2 (H) 0.3 - 0.9 x10(3)/mcL Eosinophils % 2.1 % Eosinophils Abs 0.4 0.0 - 0.4 x10(3)/mcL Basophils % 0.6 % Basophils Abs 0.1 0.0 - 0.1 x10(3)/mcL Immature Gran % 1.80 % Nanci Gran Abs 0.32 (H) 0.00 - 0.04 x10(3)/mcL POCT Glucose Result Value Ref Range POC Glucose 125 65 - 199 mg/dL Microbiology: Anaerobic Culture 04/28 in progress Anaerobic culture 04/22: No anaerobic organisms isolated Body fluid culture of arabella-hepatic abscess 04/28. Prelim, few neutrophils seen, no microorganisms seen Body fluid culture bile 04/22 - Body Fluid Culture Abnormal Many Raoultella ornithinolytica (Klebsiella ornithinolytica) Gram Stain Abnormal Few Neutrophils seen Rare Gram Negative Rods seen Radiology: CXR 04/27- Improved subpulmonic right-sided pleural effusion. Equivocal trace left effusion. CT Abdomen and pelvis with contrast 04/27- An abscess 1. There is a new fluid collection between the liver and diaphragm as noted above this is consistent with some diaphragmatic abscess. There is a right-sided subpulmonic effusion as well. 2. Small left effusion. 3. 9 mm homogeneous hypodensity in the spleen with Hounsfield units of 10. These are benign imagingfeatures and no follow-up is required per ACR incidental findings committee White paper of 2013. 4. Free fluid in the abdomen and pelvis, greatest in the pelvis. Other Studies: None Assessment: 79 y.o. F with history of HTN, HLD, DM, presented with acute cholecystitis and new dx of Afib with RVR, who was not a surgical candidate due to CV instability, developed cardiogenic shock 2/2 NSTEMI received PCI with 2x stenting, percutaneous cholecystostomy tube, noted to have liver abscess on imaging and treated with percutaneous drainage. Her cholecystitis is stable at this time with percutaneous drainage in place. Continue to monitor and definitively treat with outpatient gen surg cholecystectomy when stable. She has current DAPT plus apixaban which has to be considered/resolved prior to surgery. Her liver abscess may be the cause of her increasing white count, at 18 today from 14.8 yesterday. She is clinically well appearing, afebrile, without tachypnea or tachycardia, so is unlikely to be septic. She is on piperacillin- tazobactam 3.375mg daily. Her Afib is currently controlled with metoprolol 300 mg daily and amiodarone 200mg daily. She has developed a new FORREST in the hospital, Cr rise from 0.63 to 0.96 in 24 hours. This is most likely a prerenal FORREST. Plan: Cholecystitis: Leave percutaneous cholecystotomy tube in place. Schedule for outpatient cholecystectomy when medically stable and able to tolerate. Liver Abscess: Continue to treat with piperacillin-tazobactam 3.375 mg q8hrs. Consult ID for duration of treatment for liver abscess. If white count does not decrease, or clinical picture worsens broaden coverage empirically. Narrow coverage if indicated by culture results. Leave liver abscess drain in place. Afib: Continue rate control with metoprolol 300 mg daily and amiodarone 200mg daily. FORREST: 250mg LR today. Monitor for fluid overload and HF. Strict I/Os. Miguel Lobo 04/29/2020 * Wilner Esparza MD - 04/29/2020 8:21 AM EDT [facility] Red Team Inpatient Progress Note ID: Shannan Chaudhary is a 79 y.o. year old female with past medical history of IDDM last A1c 8.5 (03/2020), HTN, HLD, moderate-severe admitted on 04/19/2020 ( Hospital Day 10 days ) for cholecystitis. Active Hospital Problems Diagnosis ??? 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 Aortic stenosis - moderate ??? Atrial fibrillation--- paroxysmal ??? Cholecystitis Resolved Hospital Problems No resolved problems to display. Interval History: - pt transferred to medicine - rising leukocytosis while on pip-tazo (04/19-04/26, 04/28 - present) - pt without complaints; abdominal pain is improved with oxycodone. No fevers, dyspnea, chest pain,pleurisy. - bump in Cr today to 0.96 Meds: ??? piperacillin-tazobactam 3.375 g Intravenous Q8H ??? furosemide 20 mg Oral Daily ??? metoprolol succinate XL 300 mg Oral Nightly ??? rosuvastatin 20 mg Oral QPM ??? losartan 100 mg Oral Daily ??? pantoprazole EC 40 mg Oral Daily ??? AMIOdarone 200 mg Oral BID ??? aspirin 81 mg Oral Daily ??? clopidogreL 75 mg Oral Daily ??? acetaminophen 1,000 mg Oral Q8H ??? polyethylene glycoL (MIRALAX) oral powder 17 g Oral Daily ??? senna-docusate 2 tablet Oral BID ??? sodium chloride 0.9 % (flush) 5 mL Intravenous BID ??? insulin lispro 1-4 Units Subcutaneous Q4H BASIL ??? insulin glargine 25 Units Subcutaneous Nightly PRN medications labetalol, bisacodyl EC, sodium chloride 0.9 % (flush), ondansetron OR ondansetron, oxyCODONE, glucose 40% oral geL OR dextrose 10% OR glucagon (human recombinant) Current Facility-Administered Medications Medication Dose Route Frequency ??? labetalol (NORMODYNE,TRANDATE) injection 20 mg 20 mg Intravenous Q2H PRN ??? bisacodyl EC (Dulcolax) tablet 10 mg 10 mg Oral Daily PRN ??? sodium chloride 0.9 % (flush) flush 5-20 mL 5-20 mL Intravenous Q1 Min PRN ??? ondansetron (Zofran) tablet 4-8 mg 4-8 mg Oral Q8H PRN Or ??? ondansetron (ZOFRAN) injection 4-8 mg 4-8 mg Intravenous Q8H PRN ??? oxyCODONE (Roxicodone) tablet 5 mg 5 mg Oral Q4H PRN ??? glucose (GLUTOSE) 40% oral geL 15-30 g Buccal Q30 Min PRN Or ??? dextrose 10% infusion 250 mL Intravenous Q30 Min PRN Or ??? glucagon (human recombinant) injection SolR 1 mg 1 mg Intramuscular Q30 Min PRN Physical Exam: Last value Range last 24 hrs Temperature Temp: 37.1 ??C (98.8 ??F) Temp: [35.3 ??C (95.5 ??F)-37.6 ??C (99.7 ??F)] Heart Rate Heart Rate: 58 Heart Rate: [53-73] Blood Pressure BP: 150/57 BP: (90-165)/(25-107) Respiratory Rate Resp: 20 Resp: [12-28] SpO2 SpO2: 96 % SpO2: [92 %-99 %] Intake/Output Summary (Last 24 hours) at 04/29/2020 0821 Last data filed at 04/29/2020 0751 Gross per 24 hour Intake 1071 ml Output 1455 ml Net -384 ml Patient Vitals for the past 168 hrs: Weight 04/28/20 0500 83.6 kg (184 lb 4.9 oz) 04/23/20 0400 83.8 kg (184 lb 11.9 oz) Admit wt: 86.18 kg Gen: AOx3, NAD on RA. HEENT: sclera clear, anictric. Neck supple. CV: rrr, nl s1/s2 without m/r/g Respiratory: lungs clear to auscultation bilaterally, without rales or rhonchi, good inspiratory effort GI: +bs, soft, nt/nd. Cholecystostomy drain in place with yellowish-green clear fluid, SIS drains with smal volume of serosanguinous fluid. Wound site well- dressed, minimally tender. Skin: warm, well-perfused, no LE edema, no rash. Neuro: grossly nonfocal exam, spontaneously moves all extremities Musculoskeletal: no joint swelling or pain Labs: Recent Labs 04/29/2041604/28/2040404/27/20 0441 WBC 18.0* 14.8* 15.1* HGB 9.8* 10.5* 10.3* HCT 30.1* 32.5* 32.1* PLATELET 397* 421* 422* Recent Labs 04/29/2041604/28/205 04/27/20 0441 NA 136 137 138 K 3.9 3.5 3.5 CL 103 105 103 CO2 22 21* 23 BUN 28* 16 12 CREATININE 0.96 0.80 0.63* GLUCOSE 152 149 167 Recent Labs 04/29/2041604/28/205 04/27/20 0441 CALCIUM 8.5 8.7 8.7 MAGNESIUM 0.83 0.78 0.76 Recent Labs 04/29/2041604/28/205 04/27/20 0441 AST 15 12 12 ALT 16 12 13 ALKPHOS 177* 201* 230* BILITOT 0.5 0.4 0.5 Microbiology: 04/22 cholecystic fluid Raoultella ornithinolytica (klebsiella ornithinolytica) VITEK 2 METHOD Amikacin Sensitive Ampicillin + Sulbactam Sensitive Aztreonam Sensitive Ceftazidime <=1 Sensitive Ceftriaxone Sensitive Ertapenem Sensitive Gentamicin Sensitive Levofloxacin Sensitive1 Meropenem <=0.25 Sensitive Piperacillin/Tazobactam <=4 Sensitive Tetracycline Sensitive Tigecycline ?? Sensitive Tobramycin Sensitive Trimethoprim/Sulfa Sensitive No growth from liver fluid collection on 04/28 Assessment and Plan: Shannan Chaudhary is a 79 y.o. year old female with past medical history of with history of IDDM last A1c 8.5 (03/2020), HTN, HLD, moderate-severe admitted on 04/19/2020 ( Hospital Day 10 days ) presenting with cholecystitis, now s/p percutaneous cholecystostomy and percutaneous liver abscess SIS drain placement. The patient is now hemodynamically stable and remains afebrile and without systemic complaints, butcontinues to have a leukocytosis while on pip-tazo IV. We appear to have source control with the two drains in place; will consult ID for antibiotic recs and duration. Given acuity of formation of subdiaphragmatic mass, likely etiology is post-procedural seeding of klebsiella infection in gallbladder distally (the risks of which increase with diabetes); anaerobic cultures remain pending. For pt afib with RVR, currently on rate and rhythm control without RVR overnight on telemonitoring.Will continue amiodarone 200mg BID per cardiology recs. Pt remains on triple AC given DAPT + apixaban, and per conversation with cardiology, recommend being on triple AC for 1 more week (end 05/06), continuing without ASA and thus only on Plavix and apixaban until periprocedural period (cholecystectomy in ~6 weeks) at which point she should be only on aspirin, and then restarting her on Plavix and apixaban. Will contact [facility] moving forward with with this plan. # liver abscess (perhaps partially treated) vs infected fluid collection, s/p SIS drain (04/28) # acute cholecystitis, s/p perq cholecystostomy (04/22) - liver s/p SIS 04/28 - gallbladder s/p perq 04/22 - arron tube growing klebsiella - cholecystectomy in 6 weeks - will c/w pip-tazo for gm- and anaerobic meds, ? of partially treated abscess vs new fluid collection - consult ID tomorrow AM - pip-tazo from 04/19-04/26, 04/28- ; - monitor daily CBC, BMP, LFTs - f/u cultures ?? # afib rvr, rate and rhythm controlled now in sinus # cardiogenic shock, resolved # pulmonary edema 2/2 afib-rvr, resolving # HTN # hypokalemia - resume apixaban 5mg BID - c/w amiodarone 200mg BID for 1 month per cards - c/w metoprolol 300mg qday - monitor vitals as above - DAPT as above - strict I/O's - daily weights ?? # , moderate-severe # 2v CAD, s/p RCA stents on 04/21 # NSTEMI, likely type II - demand - DAPT with understanding pt is now on triple AC - will take off ASA until periprocedural, then resume only on ASA, then afterward only on Plavix/apixaban - metoprolol as above - losartan 100mg, reassess FORREST as below - rosuvastatin 20mg qhs - hold amlo in BP - holding PO lasix today - no surgical intervention at this point - pt remains largely asymptomatic - trops plateaud, d/c'd # FORREST, possibly 2/2 diuresis - hold lasix today - gentle 250 cc LR today - hold losartan tomorrow if persistent FORREST ?? # Chronic Medical Conditions: # IDDM, A1c 8.5 - glargine 25 qhs - meal-associated insulin ?? # Routine Diet: Daily Healthy Menu Choices/Cardiac diet ([facility]-Diet) CHO cont DVT prophylaxis: apixaban Fluids: PO Access: PIV Dispo: transfer to [id number] Code: Full Code Wilner Esparza MD 04/29/2020 PGY-1, Internal Medicine Red Team - Pager [phone] Associated attestation - Dale Gonzáles MD - 04/29/2020 4:37 PM EDT Attending Attestation Please see Vilma's note for details of the patient history of presentation and data. I have discussed, reviewed and agree with the documented History, Physical findings, Assessment and Plan of care. I have examined the patient myself and personally reviewed all studies. In addition, I certify thatI am a D-H credentialed attending provider with admitting privileges and that the patient meets or has met medical necessity to require an inpatient IPI level of care meeting a minimum of two midnights or is on the [facility] inpatient only procedure list (status C) due to: IV treatment for arabella-hepatic abscess. We will consult ID in regards to perihepatic abscess. We will touch base with general surgery in regards to anticoagulation plan for cholecystectomy. * Chioma Vann, RN - 04/28/2020 12:42 PM EDT OFFICE OF CARE MANAGEMENT PROGRESS NOTE Chart reviewed, care reviewed with primary team and at interdisciplinary rounds. Patient continues to require acute hospital care for a new liver abscess. Sx to place a drain and now on IV abx for treatment. Functional status prior to admission: States she is independent and active. 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 Is driving and able to walk good distances. Patient is insured through: Primary Insurance: [employer] [place] Payor: [employer] [place] / Plan: [place] VHP / Product Type: *No Product type* / Secondary Insurance: N/A Prescription Coverage: yes Plan for discharge is: Services Anticipated at Discharge: home health care - orders routed/pended [facility]. PHONE: [phone] FAX: [phone] Barriers to discharge: as listed above Plan going forward: CM will continue to follow and assist with discharge planning and coordination of care as indicated. Chioma Vann RN, MSN Car Head Liner Installer - Cardiology Office of Care Management Pager: [phone] Work * Bobbi Fernandez RN - 04/28/2020 8:28 AM EDT ANGIO NURSING DATABASE Name: SHANNAN CHAUDHARY Date of : 1940 AGE: 79 y.o. [address]: [address] [place] [phone] (home) Mobile: Telephone Information: Referring Provider: Bethany Ireland REASON FOR VISIT: CT Guided Peritoneal Drain Placement Plan Planned procedure: Arabella-Hepatic Drainage Catheter Placement (04/28/20753) Labs to be performed day of procedure: No labs (04/28/20753) Sedation: Moderate (Conscious sedation) (04/28/20753) Prophylactic antibiotic : None (04/28/20753) Contrast: No contrast (04/28/20753) Additional medications for procedure: Lidocaine (04/28/20753) Medications to discontinue (and days held): None (04/28/20753) Planned access site: [facility] (04/28/20753) Position: Supine (04/28/20753) Cytopathology presence needed: No (04/28/20753) Consent: Pending (04/28/204) No Known Allergies Pertinent PMH: Patient Active Problem List Diagnosis Code ??? Actinic keratosis L57.0 ??? Seborrheic keratosis L82.1 ??? Type 2 diabetes mellitus E11.59 ??? Hypertension I10 ??? Hyperlipidemia E78.5 ??? Arthritis M19.90 ??? Cholecystitis K81.9 ??? Atrial fibrillation--- paroxysmal I48.91 ??? 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 Aortic stenosis - moderate I35.0 Date/Procedure Meds given/comments 04/22/20 Arron tube ICU patient 04/27/20 CT Perihepatic abscess drain Fentanyl 150 mcg IV, Versed 3 mg IV Laboratory Results: Lab Results Component Value Date INR 1.3 04/23/2020 Lab Results Component Value Date CREATININE 0.80 04/28/2020 Lab Results Component Value Date K 3.5 04/28/2020 Lab Results Component Value Date PLATELET 421 (H) 04/28/2020 * Jos Garrison MD - 04/28/2020 8:00 AM EDT Acute Care Surgery Progress Note ID: Shannan Chaudhary is a 79 y.o. female with PMH IDDM and reported aortic stenosis with valve area 0.8 (records unavailable in e[facility] but reviewed by [facility] referring MD) who was admitted in transfer with cholecystitis, now s/p percutaneous cholecystostomy tube Subjective/24 hour events: - Continues to feel well. - Denies RUQ pain. - tolerating diet. - Ct yesterday with arabella-hepatic abscess. Physical Exam: Last value Range last 24 hrs Temperature Temp: 37.1 ??C (98.8 ??F) Temp: [35.3 ??C (95.5 ??F)-37.3 ??C (99.1 ??F)] Heart Rate Heart Rate: 65 Heart Rate: [53-66] Blood Pressure BP: 138/51 BP: (90-165)/(25-107) BP (Arterial Line): -- Respiratory Rate Resp: 26 Resp: [12-29] SpO2 SpO2: 96 % SpO2: [92 %-99 %] Physical Exam: General: NAD, resting comfortably, pleasant, conversant Neuro: grossly intact, nonfocal, moving all four extremities spontaneously HEENT: NCAT, anicteric sclera CVS: irregularly irregular Pulm: non-labored breathing Abd: soft, nondistended, nontender. Perc arron tube site with no erythema or drainage. Skin: warm, dry Intake/Output Summary (Last 24 hours) at 04/28/2020 1803 Last data filed at 04/28/2020 1500 Gross per 24 hour Intake 300 ml Output 1425 ml Net -1125 ml Labs: Recent Labs 04/28/2040404/27/2044004/26/20441 WBC 14.8* 15.1* 13.9* HGB 10.5* 10.3* 10.0* HCT 32.5* 32.1* 31.5* PLATELET 421* 422* 398* Recent Labs 04/28/2040404/27/2044004/26/20 044 NA 137 138 142 K 3.5 3.5 3.3* CL 105 103 107 CO2 21* 23 22 BUN 16 12 14 CREATININE 0.80 0.63* 0.67* GLUCOSE 149 167 172 No results for input(s): PT, INR in the last 72 hours. Invalid input(s): PTT Assessment/Plan: 79y F w/ severe (valve area 0.8) transferred to [facility] with acute cholecystitis. Unable to performcholecystectomy 2/2 recent PCI with two stents requiring DAPT x 6 weeks. Now s/p cholecystostomy tube and appears to be recovering well. Ct yesterday with arabella-hepatic abscess. Will go for IR drainage today. Zosyn restarted. Jeevan Black MD General Surgery 04/28/2020 * Julianna Hendrix MD - 04/28/2020 7:11 AM EDT Inpatient Cardiology Progress Note Hospital Day 9 days Active Hospital Problems Diagnosis ??? 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 Aortic stenosis - moderate ??? Atrial fibrillation--- paroxysmal ??? Cholecystitis Resolved Hospital Problems No resolved problems to display. Active Hospital Problems Diagnosis ??? 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 Aortic stenosis - moderate ??? Atrial fibrillation--- paroxysmal ??? Cholecystitis Resolved Hospital Problems No resolved problems to display. ID: Ms. Chaudhary is a 79F with a PMH of HTN, HLD, DM, possible history of AF who presented as a transfer from [facility] for acute cholecystitis with a course complicated by afib with RVR and hypotension now transferring to the Cardiology service due to concern for severe (CORINE 0.8 at OSH) with consideration of direct intervention. 24 Hour Events/Subjective: - No acute events overnight - Denies chest pain, shortness of breath, nausea, vomiting - CT with new hepatic abscess Inpatient Medications: Scheduled Meds: ??? piperacillin-tazobactam 3.375 g Intravenous Q8H ??? chlorthalidone 25 mg Oral Daily ??? amLODIPine 10 mg Oral Nightly ??? metoprolol succinate XL 300 mg Oral Nightly ??? rosuvastatin 20 mg Oral QPM ??? losartan 100 mg Oral Daily ??? pantoprazole EC 40 mg Oral Daily ??? AMIOdarone 200 mg Oral BID ??? aspirin 81 mg Oral Daily ??? clopidogreL 75 mg Oral Daily ??? acetaminophen 1,000 mg Oral Q8H ??? polyethylene glycoL (MIRALAX) oral powder 17 g Oral Daily ??? senna-docusate 2 tablet Oral BID ??? sodium chloride 0.9 % (flush) 5 mL Intravenous BID ??? insulin lispro 1-4 Units Subcutaneous Q4H BASIL ??? insulin glargine 25 Units Subcutaneous Nightly Continuous Infusions: PRN Meds:.labetalol, ipratropium-albuteroL, bisacodyl EC, sodium chloride 0.9 % (flush), ondansetron OR ondansetron, oxyCODONE, glucose 40% oral geL OR dextrose 10% OR glucagon (human recombinant) Vitals: Last value 24hr range T 37.1 ??C (98.7 ??F) Temp: [37 ??C (98.6 ??F)-37.3 ??C (99.1 ??F)] HR 61 Heart Rate: [61-66] BP 155/57 BP: (127-157)/(44-80) RR 25 Resp: [16-29] SpO2 96 % SpO2: [93 %-97 %] Last value Initial Value Wt 83.6 kg (184 lb 4.9 oz) 86.2 kg (190 lb) Height 152.4 cm (5') 152.4 cm (5') Ins/Outs: Intake/Output Summary (Last 24 hours) at 04/28/2020 0711 Last data filed at 04/28/2020 0642 Gross per 24 hour Intake 800 ml Output 1335 ml Net -535 ml Physical Exam: General: AOx3, no acute distress, resting comfortably in bed HENT: head normocephalic, atraumatic, no gross nasal drainage Mouth: moist oral mucosa Neck: soft, supple, without masses, trachea midline CV: regular rate, S1 and S2 appreciated, systolic murmur, extremities well- perfused, no peripheral edema Pulm: coarse bibasilar breath sounds, symmetric chest rise, nonlabored breathing, on room air Abd: soft, nondistended, denies RUQ tenderness, RUQ drain in place with nonpurulent bilious output MSK: moves all extremities, equal strength bilaterally Skin: warm, dry, pink Neuro: no focal deficits Psych: appropriate mood and affect Labs: Recent Labs 04/28/2040404/27/2044004/26/20441 WBC 14.8* 15.1* 13.9* HGB 10.5* 10.3* 10.0* HCT 32.5* 32.1* 31.5* PLATELET 421* 422* 398* Recent Labs 04/23/20 0225 04/22/20 0350 INR 1.3 1.2 Recent Labs 04/28/20 0405 04/27/20 04404/26/20 044 NA 137 138 142 K 3.5 3.5 3.3* CL 105 103 107 CO2 21* 23 22 BUN 16 12 14 CREATININE 0.80 0.63* 0.67* Recent Labs 04/28/20 0405 04/27/2044004/26/20 0442 AST 12 12 14 ALT 12 13 14 ALKPHOS 201* 230* 253* BILITOT 0.4 0.5 0.4 Recent Labs 04/28/20 0405 04/27/20 0441 04/26/20 0442 CALCIUM 8.7 8.7 8.6 MAGNESIUM 0.78 0.76 0.86 No results for input(s): CK, TROPONINT in the last 168 hours. Recent Labs 04/22/20 0350 TSH 1.22 Recent Labs 04/22/20 0350 HA1C 8.5* Lab Results Component Value Date CHLPL 104 04/22/2020 HDL 17 04/22/2020 CHOLHDL 6.1 04/22/2020 TRIG 237 04/22/2020 LDLCHOL 40 04/22/2020 LDLDIRECT 73 02/28/2017 Imaging: SUMMARY: ?? 1. Mild concentric left ventricular hypertrophy is [...] by low stroke volume index (23 ml/m2). EKG: Post-cath EKG showed NSR with RBBB Assessment: Shannan Chaudhary is a 79 y.o. female with multiple cardiac risk factors in the form of HTN, HLD, and DM and now afib with RVR who presented to our service initialy as a preop consult and is now s/p stenting of her RCA, in the midst of active cholecystitis. She is stable post-catheterization, and is now planned for placement of a percutaneous cholecystostomy tube on 04/22 given her requirement forDAPT for at least 6 weeks with her new synergy stent -- she can likely be considered for a proper cholecystectomy after 6 weeks, when her DAPT can be paused for the procedure should it be needed. Thankfully her was found to not be as bad as suggested on her TTE, which obviates the need for a balloon valvuloplasty or valve replacement in the near future, though it may be required eventually. ?? With regards to her hypoxic respiratory failure, the most likely explanation seems to be that when Ms. Chaudhary flipped into afib RVR, her EF dropped precipitously and led to significant pulmonary vascular congestion. Respiratory status improved with diuresis. She had an increasing leukocytosis. She otherwise shows no s/s of worsening infection from a hemodynamic or symptomatic standpoint. CT abd/pelvis with new hepatic abscess. Surgery recommending drainage with IR. Since her inpatient cardiac problems have been treated, will contact medicine to take over as primary. She will need follow-up with surgery in 6 weeks with IR cholecystostomy tube study. Plan: #NSTEMI, s/p stenting of RCA osteal lesion #Pulmonary edema 2/2 afib-RVR #Afib-RVR, now in sinus #HTN - Starting amiodarone 200mg bid with plan to stop it after 1 month - ASA 81mg qd - Plavix 75mg qd - Metoprolol succinate 300mg - Losartan 100mg - Rosuvastatin 20mg QHS - Amlodipine 10mg - Starting po lasix 20mg and spironolactone 25mg - Eliquis held for procedure ?? #Acute cholecystitis s/p perc arron tube #Leukocytosis - Perc arron tube placed with IR with initial purulent output - Cultures from arron tube growing Klebsiella ornithinolytica, pansensitive s/p zosyn (824/-04/26) - Leukocytosis continued to increase, CT showing new hepatic abscess, surgery recommending drainagewith IR - Follow-up with surgery in 6 weeks for evaluation for cholecystectomy with IR cholecystostomy tubestudy #HF with elevated LVEDP #Pulmonary edema 2/2 afib RVR, now in sinus #Moderate aortic stenosis - Acute pulmonary edema due to acute systolic heart failure - CXR with pulmonary vascular congestion and R sided pleural effusion, s/p lasix x2 - Strict I/O's - Daily Weights ?? #Hypokalemia - Replacing and monitoring #Diabetes - Goal glucose < 180 - q4 hour finger sticks - Sensitive SSI in place - Continue nightly glargine 25u ?? # Misc Diet: NPO diet (Give Meds) DVT ppx: held for procedure GI ppx: Protonix PT/OT consult ?? Code Status:Attempt Cardiopulmonary Resuscitation - Inpatient ?? Dispo- floor Julianna Hendrix MD Internal Medicine PGY1 Cardiology M1-S2 Team Pager [phone] Associated attestation - Abiodun Chun MD - 04/28/2020 6:15 PM EDT Cardiology Attending Addendum Active Hospital Problems Diagnosis 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 Aortic stenosis - moderate Atrial fibrillation--- paroxysmal Cholecystitis Resolved Hospital Problems No resolved problems to display. I have interviewed and examined the patient, reviewed the available data, and have discussed my findings, assessment and plan with the patient and the team on rounds today. I agree with Dr. Hendrix's note as below which reflects our discussion. Pt stable for discharge to home. * Reshma Allred, RN - 04/27/2020 3:58 PM EDT Chart reviewed, care reviewed with primary team and at interdisciplinary rounds. Ms Chaudhary may be medically ready for discharge to home tomorrow with VNA services. Met with patient who is concerned about showering at home. [facility] has been pended for RN only. The orders have been signed, so I am unable to adjust them. I have asked Dr Hendrix throughsecuapril garcia who signed them to add choly tube care and OT to assess home safety, ADL's, IADL's and include LEAVE COORDINATOR if appropriate. Will be transported via private car with family. Patient is insured through [employer], however states she has Medicare A secondary-Due to current public health concerns, I have verbally reviewed Medicare Discharge Rights with patient. Patient verbalizes understanding of right to appeal this discharge if feeling not medically ready. Offered a copy of this letter. This plan was formulated with input from patient, family and team. All are in agreement with plan. * Jos Garrison MD - 04/27/2020 3:33 PM EDT Acute Care Surgery Progress Note ID: Shannan Chaudhary is a 79 y.o. female with PMH IDDM and reported aortic stenosis with valve area 0.8 (records unavailable in [facility] but reviewed by [facility] referring MD) who was admitted in transfer with cholecystitis, now s/p percutaneous cholecystostomy tube Subjective/24 hour events: - Appetite improved, tolerating regular diet - Hemodynamically normal, afebrile - WBC 15.1 from 13.9 yesterday - Continues to deny RUQ pain. Physical Exam: Last value Range last 24 hrs Temperature Temp: 37.2 ??C (99 ??F) Temp: [36.9 ??C (98.4 ??F)-37.7 ??C (99.9 ??F)] Heart Rate Heart Rate: 65 Heart Rate: [63-76] Blood Pressure BP: 146/80 BP: (146-174)/(52-80) BP (Arterial Line): -- Respiratory Rate Resp: 16 Resp: [16-34] SpO2 SpO2: 97 % SpO2: [93 %-97 %] Physical Exam: General: NAD, resting comfortably, pleasant, conversant Neuro: grossly intact, nonfocal, moving all four extremities spontaneously HEENT: NCAT, anicteric sclera CVS: irregularly irregular Pulm: non-labored breathing Abd: soft, nondistended, nontender. Perc arron tube site with no erythema or drainage. Skin: warm, dry Intake/Output Summary (Last 24 hours) at 04/27/2020 1533 Last data filed at 04/27/2020 1300 Gross per 24 hour Intake 840 ml Output 200 ml Net 640 ml Labs: Recent Labs 04/27/20 0441 04/26/20 0442 04/25/20 0505 WBC 15.1* 13.9* 14.1* HGB 10.3* 10.0* 10.0* HCT 32.1* 31.5* 30.9* PLATELET 422* 398* 396* Recent Labs 04/27/20 0441 04/26/20 0442 04/25/20 0505 NA 138 142 142 K 3.5 3.3* 3.1* CL 103 107 108* CO2 23 22 22 BUN 12 14 16 CREATININE 0.63* 0.67* 0.69* GLUCOSE 167 172 138 No results for input(s): PT, INR in the last 72 hours. Invalid input(s): PTT Assessment/Plan: 79y F w/ severe (valve area 0.8) transferred to [facility] with acute cholecystitis. Unable to performcholecystectomy 2/2 recent PCI with two stents requiring DAPT x 6 weeks. Now s/p cholecystostomy tube and appears to be recovering well. She is tolerating a regular diet and denies pain in the RUQ or anywhere else. Her WBC has increased today to 15. Recommending CT abdomen and pelvis with contrast.We will continue to follow. Please page [phone] with any questions or concerns. Jeevan Black MD General Surgery 04/27/2020 Attending Addendum I have seen and examined the patient and reviewed the history documented above and I agree with thedetails as written. I have reviewed the laboratory data and viewed the pertinent imaging. The assessment and plan were formulated in discussion with me and I agree with them as documented. CT today shows likely hepatic abscess and would proceed with IR drainage. Restart on zoysn and follow cultures. The findings and recommendations were discussed with the consulting provider/service. Gege Garrison MD * Helen Barker DT - 04/27/2020 1:20 PM EDT Nutrition Services Note - Low Nutrition Acuity Shannan Chaudhary is a 79 y.o. female Reason for intervention: hospital day 9 Nutrition Plan: Continue current diet. Multivitamin with minerals. Monitor weight. Encourage good oral intake. Support and encouragement provided. Pt declined offer of supplements/ high protein snacks. Active Orders Diet Daily Healthy Menu Choices/Cardiac diet ([facility]-Diet) Frequency: Effective Now Number of Occurrences: Until Specified Admit Weight: 86.18 kg Estimated body mass index is 36.08 kg/m?? as calculated from the following: Height as of this encounter: 152.4 cm (5'). Weight as of this encounter: 83.8 kg (184 lb 11.9 oz). Wt Readings from Last 5 Encounters: 04/23/20 83.8 kg (184 lb 11.9 oz) 02/28/17 88.8 kg (195 lb 11.2 oz) 10/03/16 85 kg (187 lb 4.8 oz) 06/22/15 84.6 kg (186 lb 9.6 oz) 11/16/14 83.9 kg (185 lb) Weight loss: none Appetite: Fair (25%-50%) Food allergies:no known food allergies Chewing/Swallowing difficulty: none Nausea/Vomiting: no nausea and no vomiting Last Bowel Movement: 04/27/20 Patient education / questions: provided diet order education and patient with good understanding and written education and contact information provided Nutrition services to follow weekly through hospital course unless consulted in the interim. SULEMAN Lopes Pager: [phone] * Julianna Hendrix MD - 04/27/2020 7:41 AM EDT Inpatient Cardiology Progress Note Hospital Day 8 days Active Hospital Problems Diagnosis ??? 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 Aortic stenosis - moderate ??? Atrial fibrillation--- paroxysmal ??? Cholecystitis Resolved Hospital Problems No resolved problems to display. Active Hospital Problems Diagnosis ??? 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 Aortic stenosis - moderate ??? Atrial fibrillation--- paroxysmal ??? Cholecystitis Resolved Hospital Problems No resolved problems to display. ID: Ms. Chaudhary is a 79F with a PMH of HTN, HLD, DM, possible history of AF who presented as a transfer from [facility] for acute cholecystitis with a course complicated by afib with RVR and hypotension now transferring to the Cardiology service due to concern for severe (CORINE 0.8 at OSH) with consideration of direct intervention. 24 Hour Events/Subjective: - No acute events overnight - Reports feeling well this morning - Hypertensive overnight - WBC increased to 15.1 Inpatient Medications: Scheduled Meds: ??? chlorthalidone 25 mg Oral Daily ??? apixaban 5 mg Oral BID ??? amLODIPine 10 mg Oral Nightly ??? metoprolol succinate XL 300 mg Oral Nightly ??? rosuvastatin 20 mg Oral QPM ??? losartan 100 mg Oral Daily ??? pantoprazole EC 40 mg Oral Daily ??? AMIOdarone 200 mg Oral BID ??? aspirin 81 mg Oral Daily ??? clopidogreL 75 mg Oral Daily ??? acetaminophen 1,000 mg Oral Q8H ??? polyethylene glycoL (MIRALAX) oral powder 17 g Oral Daily ??? senna-docusate 2 tablet Oral BID ??? sodium chloride 0.9 % (flush) 5 mL Intravenous BID ??? insulin lispro 1-4 Units Subcutaneous Q4H BASIL ??? insulin glargine 25 Units Subcutaneous Nightly Continuous Infusions: PRN Meds:.labetalol, ipratropium-albuteroL, bisacodyl EC, sodium chloride 0.9 % (flush), ondansetron OR ondansetron, oxyCODONE, glucose 40% oral geL OR dextrose 10% OR glucagon (human recombinant) Vitals: Last value 24hr range T 37.7 ??C (99.9 ??F) Temp: [36.9 ??C (98.4 ??F)-37.7 ??C (99.9 ??F)] HR 70 Heart Rate: [63-76] BP 158/52 BP: (116-174)/(52-104) RR 26 Resp: [16-34] SpO2 93 % SpO2: [93 %-96 %] Last value Initial Value Wt 83.8 kg (184 lb 11.9 oz) 86.2 kg (190 lb) Height 152.4 cm (5') 152.4 cm (5') Ins/Outs: Intake/Output Summary (Last 24 hours) at 04/27/2020 0741 Last data filed at 04/27/2020 0544 Gross per 24 hour Intake 640 ml Output 545 ml Net 95 ml Physical Exam: General: AOx3, no acute distress, resting comfortably in bed HENT: head normocephalic, atraumatic, no gross nasal drainage Mouth: moist oral mucosa Neck: soft, supple, without masses, trachea midline CV: regular rate, S1 and S2 appreciated, systolic murmur, extremities well- perfused, no peripheral edema Pulm: coarse bibasilar breath sounds, symmetric chest rise, nonlabored breathing, on room air Abd: soft, nondistended, denies RUQ tenderness, RUQ drain in place with nonpurulent bilious output MSK: moves all extremities, equal strength bilaterally Skin: warm, dry, pink Neuro: no focal deficits Psych: appropriate mood and affect Labs: Recent Labs 04/27/20 04404/26/20 0442 04/25/20 0505 WBC 15.1* 13.9* 14.1* HGB 10.3* 10.0* 10.0* HCT 32.1* 31.5* 30.9* PLATELET 422* 398* 396* Recent Labs 04/23/20 0225 04/22/20 0350 04/21/20 0330 INR 1.3 1.2 1.2 Recent Labs 04/27/20 0441 04/26/20 0442 04/25/20 0505 NA 138 142 142 K 3.5 3.3* 3.1* CL 103 107 108* CO2 23 22 22 BUN 12 14 16 CREATININE 0.63* 0.67* 0.69* Recent Labs 04/27/20 0441 04/26/20 0442 04/25/20 0505 AST 12 14 15 ALT 13 14 15 ALKPHOS 230* 253* 239* BILITOT 0.5 0.4 0.4 Recent Labs 04/27/20 04404/26/20 0442 04/25/20 0505 CALCIUM 8.7 8.6 8.7 MAGNESIUM 0.76 0.86 0.79 Recent Labs 04/21/20 0445 04/20/20 2355 04/20/20 1735 TROPONINT 0.13* 0.12* 0.17* Recent Labs 04/22/20 0350 TSH 1.22 Recent Labs 04/22/20 0350 HA1C 8.5* Lab Results Component Value Date CHLPL 104 04/22/2020 HDL 17 04/22/2020 CHOLHDL 6.1 04/22/2020 TRIG 237 04/22/2020 LDLCHOL 40 04/22/2020 LDLDIRECT 73 02/28/2017 Imaging: SUMMARY: ?? 1. Mild concentric left ventricular hypertrophy is [...] by low stroke volume index (23 ml/m2). EKG: Post-cath EKG showed NSR with RBBB Assessment: Shannan Chaudhary is a 79 y.o. female with multiple cardiac risk factors in the form of HTN, HLD, and DM and now afib with RVR who presented to our service initialy as a preop consult and is now s/p stenting of her RCA, in the midst of active cholecystitis. She is stable post-catheterization, and is now planned for placement of a percutaneous cholecystostomy tube on 04/22 given her requirement forDAPT for at least 6 weeks with her new synergy stent -- she can likely be considered for a proper cholecystectomy after 6 weeks, when her DAPT can be paused for the procedure should it be needed. Thankfully her was found to not be as bad as suggested on her TTE, which obviates the need for a balloon valvuloplasty or valv e replacement in the near future, though it may be required eventually. ?? With regards to her hypoxic respiratory failure, the most likely explanation seems to be that when Ms. Chaudhary flipped into afib RVR, her EF dropped precipitously and led to significant pulmonary vascular congestion. Respiratory status improved with diuresis. She had an increasing leukocytosis. She otherwise shows no s/s of worsening infection from a hemodynamic or symptomatic standpoint. CT abdomen/pelvis w/ contrast and CXR this morning. She will need follow-up with surgery in 6 weeks with IR cholecystostomy tube study. Plan: #NSTEMI, s/p stenting of RCA osteal lesion #Pulmonary edema 2/2 afib-RVR #Afib-RVR, now in sinus #HTN - Starting amiodarone 200mg bid as she did not tolerate the afib - ASA 81mg qd - Plavix 75mg qd - Metoprolol succinate 300mg - Losartan 100mg - Rosuvastatin 20mg QHS - Amlodipine 10mg - Starting chlorthalidone 25mg with potassium supplementation - Continue Eliquis ?? #Acute cholecystitis s/p perc arron tube #Leukocytosis - Perc arron tube placed with IR with initial purulent output - Cultures from arron tube growing Klebsiella ornithinolytica, pansensitive s/p zosyn (824/-8/) - Leukocytosis increased to 15.1 from 13.9 after stopping abx - CT abd/pelvis w/ contrast and CXR this morning - Follow-up with surgery in 6 weeks for evaluation for cholecystectomy with IR cholecystostomy tubestudy #HF with elevated LVEDP #Pulmonary edema 2/2 afib RVR, now in sinus #Moderate aortic stenosis - Acute pulmonary edema due to acute systolic heart failure - CXR with pulmonary vascular congestion and R sided pleural effusion, s/p lasix x2 - Strict I/O's - Daily Weights ?? #Hypokalemia - Replacing and monitoring #Diabetes - Goal glucose < 180 - q4 hour finger sticks - Sensitive SSI in place - Continue nightly glargine 25u ?? # Misc Diet: Daily Healthy Menu Choices/Cardiac diet ([facility]-Diet) DVT ppx: SQH GI ppx: Protonix PT/OT consult ?? Code Status:Attempt Cardiopulmonary Resuscitation - Inpatient ?? Dispo- floor Julianna Hendrix MD Internal Medicine PGY1 Cardiology M1-S2 Team Pager [phone] Associated attestation - Abiodun Chun MD - 04/27/2020 10:43 PM EDT Cardiology Attending Addendum Active Hospital Problems Diagnosis 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 Aortic stenosis - moderate Atrial fibrillation--- paroxysmal Cholecystitis Resolved Hospital Problems No resolved problems to display. I have interviewed and examined the patient, reviewed the available data, and have discussed my findings, assessment and plan with the patient and the team on rounds today. I agree with Dr. Hendrix's note as below which reflects our discussion. * Jos Garrison MD - 04/26/2020 3:39 PM EDT Acute Care Surgery Progress Note ID: Shannan Chaudhayr is a 79 y.o. female with PMH IDDM and reported aortic stenosis with valve area 0.8 (records unavailable in [facility] but reviewed by [facility] referring MD) who was admitted in transfer with cholecystitis, now s/p percutaneous cholecystostomy tube Subjective/24 hour events: - Appetite improved, tolerating regular diet - Hemodynamically normal, afebrile - WBC 13.9 from 14.1 yesterday - Continues to deny RUQ pain. Physical Exam: Last value Range last 24 hrs Temperature Temp: 37.3 ??C (99.1 ??F) Temp: [37 ??C (98.6 ??F)-37.5 ??C (99.5 ??F)] Heart Rate Heart Rate: 65 Heart Rate: [64-79] Blood Pressure BP: (!) 116/104 BP: (116-208)/(46-104) BP (Arterial Line): -- Respiratory Rate Resp: 16 Resp: [16-33] SpO2 SpO2: 96 % SpO2: [94 %-96 %] Physical Exam: General: NAD, resting comfortably, pleasant, conversant Neuro: grossly intact, nonfocal, moving all four extremities spontaneously HEENT: NCAT, anicteric sclera CVS: irregularly irregular Pulm: non-labored breathing Abd: soft, nondistended, nontender. Perc arron tube site with no erythema or drainage. Skin: warm, dry Intake/Output Summary (Last 24 hours) at 04/26/2020 1539 Last data filed at 04/26/2020 1300 Gross per 24 hour Intake 700 ml Output 535 ml Net 165 ml Labs: Recent Labs 04/26/20 0442 04/25/20 0505 04/24/20 0458 WBC 13.9* 14.1* 12.2* HGB 10.0* 10.0* 10.1* HCT 31.5* 30.9* 31.2* PLATELET 398* 396* 375* Recent Labs 04/26/20 0442 04/25/20 0505 04/24/20 0458 NA 142 142 143 K 3.3* 3.1* 3.3* CL 107 108* 108* CO2 22 22 22 BUN 14 16 25* CREATININE 0.67* 0.69* 0.74 GLUCOSE 172 138 188 No results for input(s): PT, INR in the last 72 hours. Invalid input(s): PTT Assessment/Plan: 79y F w/ severe (valve area 0.8) transferred to [facility] with acute cholecystitis. Unable to performcholecystectomy 2/2 recent PCI with two stents requiring DAPT x 6 weeks. Now s/p cholecystostomy tube and appears to be recovering well. She is tolerating a regular diet and denies pain in the RUQ or anywhere else. Recommending stopping abx today. If her WBC increases tomorrow, can send for CT abdomen and/or cholecystostomy tube drain study yesterday. We will continue to follow. Please page [phone] with any questions or concerns. Jeevan Black MD General Surgery 04/26/2020 Attending Addendum I have seen and examined the patient and reviewed the history documented above and I agree with thedetails as written. I have reviewed the laboratory data and viewed the pertinent imaging. The assessment and plan were formulated in discussion with me and I agree with them as documented. WBC normalizing and abdominal exam benign, should wbc continue to rise then would plan on repeat CTLis Garrison MD * Chioma Vann RN - 04/26/2020 11:38 AM EDT CARE MANAGEMENT DISCHARGE NOTE Chart reviewed, care reviewed with primary team and at interdisciplinary rounds. Patient is medically ready for discharge to home with VNA services. [facility] PHONE: [phone] FAX: [phone] Will be transported via son Darwin. This plan was formulated with input from patient, family and team. All are in agreement with plan. Chioma Vann RN, MSN [employer]er - Cardiology Office of Care Management Pager: [phone] Work * Julianna Hendrix MD - 04/26/2020 6:50 AM EDT Inpatient Cardiology Progress Note Hospital Day 7 days Active Hospital Problems Diagnosis ??? 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 Aortic stenosis - moderate ??? Atrial fibrillation--- paroxysmal ??? Cholecystitis Resolved Hospital Problems No resolved problems to display. Active Hospital Problems Diagnosis ??? 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 Aortic stenosis - moderate ??? Atrial fibrillation--- paroxysmal ??? Cholecystitis Resolved Hospital Problems No resolved problems to display. ID: Ms. Chaudhary is a 79F with a PMH of HTN, HLD, DM, possible history of AF who presented as a transfer from [facility] for acute cholecystitis with a course complicated by afib with RVR and hypotension now transferring to the Cardiology service due to concern for severe (CORINE 0.8 at OSH) with consideration of direct intervention. 24 Hour Events/Subjective: - No acute events overnight - Reports feeling well this morning - Walked with PT yesterday, rec home with assist - Denies chest pain and shortness of breath - Hypertensive overnight Inpatient Medications: Scheduled Meds: ??? amLODIPine 10 mg Oral Nightly ??? metoprolol succinate XL 300 mg Oral Nightly ??? rosuvastatin 20 mg Oral QPM ??? losartan 100 mg Oral Daily ??? pantoprazole EC 40 mg Oral Daily ??? AMIOdarone 200 mg Oral BID ??? aspirin 81 mg Oral Daily ??? clopidogreL 75 mg Oral Daily ??? acetaminophen 1,000 mg Oral Q8H ??? polyethylene glycoL (MIRALAX) oral powder 17 g Oral Daily ??? senna-docusate 2 tablet Oral BID ??? sodium chloride 0.9 % (flush) 5 mL Intravenous BID ??? heparin (Porcine) 5,000 Units Subcutaneous Q8H BASIL ??? piperacillin-tazobactam 3.375 g Intravenous Q8H ??? insulin lispro 1-4 Units Subcutaneous Q4H BASIL ??? insulin glargine 25 Units Subcutaneous Nightly Continuous Infusions: PRN Meds:.labetalol, ipratropium-albuteroL, bisacodyl EC, sodium chloride 0.9 % (flush), ondansetron OR ondansetron, oxyCODONE, glucose 40% oral geL OR dextrose 10% OR glucagon (human recombinant) Vitals: Last value 24hr range T 37 ??C (98.6 ??F) Temp: [37 ??C (98.6 ??F)-37.5 ??C (99.5 ??F)] HR 66 Heart Rate: [64-79] BP 152/55 BP: (136-208)/(46-70) RR 29 Resp: [20-33] SpO2 95 % SpO2: [94 %-96 %] Last value Initial Value Wt 83.8 kg (184 lb 11.9 oz) 86.2 kg (190 lb) Height 152.4 cm (5') 152.4 cm (5') Ins/Outs: Intake/Output Summary (Last 24 hours) at 04/26/2020 0650 Last data filed at 04/26/2020 0647 Gross per 24 hour Intake 640 ml Output 390 ml Net 250 ml Physical Exam: General: AOx3, no acute distress, resting comfortably in bed HENT: head normocephalic, atraumatic, no gross nasal drainage Mouth: moist oral mucosa Neck: soft, supple, without masses, trachea midline CV: regular rate, S1 and S2 appreciated, systolic murmur, extremities well- perfused, no peripheral edema Pulm: lungs clear bilaterally, symmetric chest rise, nonlabored breathing, on 1L oxygen Abd: soft, nondistended, denies RUQ tenderness, RUQ drain in place with nonpurulent bilious output MSK: moves all extremities, equal strength bilaterally Skin: warm, dry, pink Neuro: no focal deficits Psych: appropriate mood and affect Labs: Recent Labs 04/26/20 04404/25/20 0505 04/24/20 0458 WBC 13.9* 14.1* 12.2* HGB 10.0* 10.0* 10.1* HCT 31.5* 30.9* 31.2* PLATELET 398* 396* 375* Recent Labs 04/23/20 0225 04/22/20 0350 04/21/20 0330 INR 1.3 1.2 1.2 Recent Labs 04/26/20 04404/25/20 0505 04/24/20 0458 NA 142 142 143 K 3.3* 3.1* 3.3* CL 107 108* 108* CO2 22 22 22 BUN 14 16 25* CREATININE 0.67* 0.69* 0.74 Recent Labs 04/26/20 04404/25/20 0505 04/24/20 0458 04/20/20 0243 AST 14 15 14 < > Not Perf 18 ALT 14 15 16 < > Not Perf 22 ALKPHOS 253* 239* 243* < > Not Perf 139* BILITOT 0.4 0.4 0.4 < > Not Perf 1.5* BILIDIR -- -- -- -- 0.5* < > = values in this interval not displayed. Recent Labs 04/26/20 04404/25/20 0505 04/24/20 0458 04/20/20 0243 CALCIUM 8.6 8.7 8.7 < > 8.3* MAGNESIUM 0.86 0.79 0.87 < > 0.71 PHOS -- -- -- -- 3.6 < > = values in this interval not displayed. Recent Labs 04/21/20 0445 04/20/20 2355 04/20/20 1735 TROPONINT 0.13* 0.12* 0.17* Recent Labs 04/22/20 0350 TSH 1.22 Recent Labs 04/22/20 0350 HA1C 8.5* Lab Results Component Value Date CHLPL 104 04/22/2020 HDL 17 04/22/2020 CHOLHDL 6.1 04/22/2020 TRIG 237 04/22/2020 LDLCHOL 40 04/22/2020 LDLDIRECT 73 02/28/2017 Imaging: SUMMARY: ?? 1. Mild concentric left ventricular hypertrophy is [...] by low stroke volume index (23 ml/m2). EKG: Post-cath EKG showed NSR with RBBB Assessment: Shannan Chaudhary is a 79 y.o. female with multiple cardiac risk factors in the form of HTN, HLD, and DM and now afib with RVR who presented to our service initialy as a preop consult and is now s/p stenting of her RCA, in the midst of active cholecystitis. She is stable post-catheterization, and is now planned for placement of a percutaneous cholecystostomy tube on 04/22 given her requirement forDAPT for at least 6 weeks with her new synergy stent -- she can likely be considered for a proper cholecystectomy after 6 weeks, when her DAPT can be paused for the procedure should it be needed. Thankfully her was found to not be as bad as suggested on her TTE, which obviates the need for a balloon valvuloplasty or valv e replacement in the near future, though it may be required eventually. ?? With regards to her hypoxic respiratory failure, the most likely explanation seems to be that when Ms. Chaudhary flipped into afib RVR, her EF dropped precipitously and led to significant pulmonary vascular congestion. Respiratory status improved with diuresis. She had an increasing leukocytosis, now stable. She otherwise shows no s/s of worsening infection from a hemodynamic or symptomatic standpoint. Will stop zosyn and monitor WBC. She will need follow-up with surgery in 6 weeks with IR cholecystostomy tube study. Plan: #NSTEMI, s/p stenting of RCA osteal lesion #Pulmonary edema 2/2 afib-RVR #Afib-RVR, now in sinus #HTN - Starting amiodarone 200mg bid as she did not tolerate the afib - ASA 81mg qd - Plavix 75mg qd - Metoprolol succinate 300mg - Losartan 100mg - Rosuvastatin 20mg QHS - Amlodipine 10mg - Starting chlorthalidone 25mg with potassium supplementation ?? #Acute cholecystitis - Perc arron tube placed yesterday with IR with initial purulent output - Leukocytosis stable at 13.9 - Cultures from arron tube growing Klebsiella ornithinolytica, pansensitive - Stopping zosyn today and will monitor WBC - Follow-up with surgery in 6 weeks for evaluation for cholecystectomy with IR cholecystostomy tubestudy #HF with elevated LVEDP #Pulmonary edema 2/2 afib RVR, now in sinus #Moderate aortic stenosis - Acute pulmonary edema due to acute systolic heart failure - CXR with pulmonary vascular congestion and R sided pleural effusion, s/p lasix x2 - Strict I/O's - Daily Weights ?? #Hypokalemia - Replacing and monitoring #Diabetes - Goal glucose < 180 - q4 hour finger sticks - Sensitive SSI in place - Continue nightly glargine 25u ?? # Misc Diet: Daily Healthy Menu Choices/Cardiac diet ([facility]-Diet) DVT ppx: SQH GI ppx: Protonix PT/OT consult ?? Code Status:Attempt Cardiopulmonary Resuscitation - Inpatient ?? Dispo- floor Julianna Hendrix MD Internal Medicine PGY1 Cardiology M1-S2 Team Pager [phone] Associated attestation - Abiodun Chun MD - 04/26/2020 10:11 PM EDT Cardiology Attending Addendum Active Hospital Problems Diagnosis 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 Aortic stenosis - moderate Atrial fibrillation--- paroxysmal Cholecystitis Resolved Hospital Problems No resolved problems to display. I have interviewed and examined the patient, reviewed the available data, and have discussed my findings, assessment and plan with the patient and the team on rounds today. I agree with Dr. Hendrix's note as below which reflects our discussion. * Domingo Laguerre MD - 04/25/2020 4:00 PM EDT Acute Care Surgery Progress Note ID: Shannan Chaudhary is a 79 y.o. female with PMH IDDM and reported aortic stenosis with valve area 0.8 (records unavailable in [facility] but reviewed by [facility] referring MD) who was admitted in transfer with cholecystitis, now s/p percutaneous cholecystostomy tube Subjective/24 hour events: - Three days s/p cholecystostomy tube - Appetite improved, tolerating regular diet - Hemodynamically normal, afebrile - Rising leukocytosis from 12 to 14 today - Denies RUQ pain. Physical Exam: Last value Range last 24 hrs Temperature Temp: 37 ??C (98.6 ??F) Temp: [36.6 ??C (97.9 ??F)-37.2 ??C (99 ??F)] Heart Rate Heart Rate: 68 Heart Rate: [64-82] Blood Pressure BP: 178/62 BP: (138-204)/(45-68) BP (Arterial Line): -- Respiratory Rate Resp: 27 Resp: [18-30] SpO2 SpO2: 94 % SpO2: [93 %-96 %] Physical Exam: General: NAD, resting comfortably, pleasant, conversant Neuro: grossly intact, nonfocal, moving all four extremities spontaneously HEENT: NCAT, anicteric sclera CVS: irregularly irregular Pulm: non-labored breathing Abd: soft, nondistended, nontender. Perc arron tube site with no erythema or drainage. Skin: warm, dry Intake/Output Summary (Last 24 hours) at 04/25/2020 1600 Last data filed at 04/25/2020 1258 Gross per 24 hour Intake 540 ml Output 625 ml Net -85 ml Labs: Recent Labs 04/25/20 0505 04/24/20 0458 04/23/20 0225 WBC 14.1* 12.2* 10.0* HGB 10.0* 10.1* 8.9* HCT 30.9* 31.2* 27.4* PLATELET 396* 375* 360* Recent Labs 04/25/20 0505 04/24/20 0458 04/23/20 1340 04/23/20 0225 NA 142 143 -- 142 K 3.1* 3.3* 3.7 3.3* CL 108* 108* -- 106 CO2 22 22 -- 24 BUN 16 25* -- 32* CREATININE 0.69* 0.74 -- 0.96 GLUCOSE 138 188 -- 134 Recent Labs 04/23/20 0225 PT 14.6* INR 1.3 Assessment/Plan: 79y F w/ severe (valve area 0.8) transferred to [facility] with acute cholecystitis. Unable to performcholecystectomy 2/2 recent PCI with two stents requiring DAPT x 6 weeks. Now s/p cholecystostomy tube and appears to be recovering well. She is tolerating a regular diet and denies pain in the RUQ or anywhere else. General surgery reengaged given rising leukocytosis. She appears well today and has been afebrile. Would continue to monitor for today and repeat CBC tomorrow morning. If leukocytosis worsens, would plan for CT abdomen/pelvis and cholecystostomy drain study to further investigate thecause of rising white count. Domingo Laguerre MD General Surgery 04/25/2020 Associated attestation - Hong Rosenthal MD - 04/25/2020 4:34 PM EDT This patient was personally seen and examined on team rounds. I agree with the assessment and plan as discussed. Diagnoses and therapy were explained and all questions were answered. Leukocytosis - H&P without evidence of infection. She reports she continues to feel better eachday. Initial loose stooling seems related to bowel regimen and is improving since cessation. No signs of infection at perc arron nor R CFV access sites. Follow CBC + LFT panel. I would recommend a FUO evaluation if it continues to rise. This should include a CT abd/pelvis with IV contrast to look for a perihepatic collection/abscess. R/O CDAD if loose stools continue. Increased perc cholecystostomy output - Likely represents resolution of cystic duct obstruction allowing physiologic gallbladder filling that is now being seen. Alternatively could represent distal CBD obstruction. Amount, labs, and H&P are not consistent with this though. A cholangiogram via cholecystostomy tube will be considered if clinical concern increases. We will follow Thank you for allowing us to participate in the care of your patient. Please feel free to call withany questions or concerns. Hong Rosenthal MD 04/25/2020 4:25 PM * Isi Kingston 04/25/2020 12:09 PM EDT Physical Therapy Evaluation Patient profile: Shannan Chaudhary is a 79 y.o. female admitted on 04/19/[address] Abiodun Chun MD with a PMH??of HTN, HLD, DM, possible history of AF who presented??as a transfer from [facility] for acute cholecystitis with a course complicated by afib with RVR and hypotension now transferring to theCardiology service due to??concern for severe (CORINE 0.8 at OSH)??with consideration of direct intervention. Patient with the following active problems: Past Medical History: Diagnosis Date ??? Diabetes ??? Severe aortic stenosis Past Surgical History: Procedure Laterality Date ??? HYSTERECTOMY, VAGINAL ??? IR CHOLECYSTOSTOMY TUBE PLACEMENT 04/22/2020 IR Cholecystostomy Tube Placement 04/22/2020 Jos Collins, DO [facility] Social History: Home set-up: lives alone in a 3 story home but is able to stay on the 1st floor, laundry is in the basement but granddaughter can help. 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 Equipment at home: quad walker, and cane. [place] Fall history: 1 fall over a year ago from stepping in a hole and breaking leg. Precautions/Special Considerations: Code Status: Full Code, At risk to fall, Room air, On telemetry Lines: Jese, PIV and SIS Drain abdomen Activity Orders: (none) Mobility and Positioning Recommendations: ?? Pt. to utilize FWW and supervision for ambulation and transfers with nursing. ?? Please encourage up to chair for meal times as able. ?? Pt encouraged to ambulate frequently with staff, getting into the bathroom for toileting and walking out in the kaufman >/= 3 times daily as able. Subjective: ???i wouldn't mind getting out of this room?? Objective: Pt seen for evaluation today. Pain: Patient reports no pain Vital Signs: At Rest With Activity SpO2 (RA) 96% 96% BP Stable Stable HR 69bpm 84bpm Mental Status: alert, oriented to person, place, and time Skin: Grossly intact Musculoskeletal: ROM: grossly WFL Strength: grossly WFL Sensation: patient had no c/o of N/T Bed Mobility: Supine to Sit: patient in recliner on entry, yet no concerns Sit to Supine: patient in recliner on exit, yet no concerns Transfers: Sit to Stand: CGA and FWW Stand to Sit: Supervision and FWW, patient demonstrated poor eccentric control, pt educated on proper hand placement and control. Gait: Distance: 150' Device used: FWW Level of assist: supervision Gait mechanics: decreased foot clearance (B), reduced jyoti, step-length decreased (B), swing-through gait, widened base of support and forward trunk flexion throughout gait cycle Stairs: NT, patient verbalized no concerns about the stairs. Balance: Sitting Static: good Sitting Dynamic: good Standing Static:good Standing Dynamic / Gait: Good/fair Therapeutic Exercise: Pt educated on the importance of getting OOB, ambulating in hallway with staff as able, and sittingupright in chair frequently throughout the day. Pt verbalized understanding. Education: patient has been educated on Transfers, Assistive device/technique, Stairs, Safety , Precautions/protocol, Activity pacing/Energy conservation, Role of therapy and Discharge planning and verbalizes understanding. Patient status, treatment, and mobility recommendations discussed with nursing. Pt left in bedside recliner chair, with all needs met and with call aguilar in reach RN updated following visit. Assessment: Shannan Chaudhary was seen today for physical therapy evaluation. Pt initially in bedside recliner, agreeable to participate. Pt presents with the following impairments/limitations: aerobic capacity/endurance, gait, locomotion, and balance and muscle performance. 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 Pt limited this date by deconditioning, and decreased balance. Pt stood up from recliner with FWW and supervision, ambulated around the unit with supervision. Pt returned to recliner, with poor eccentric control and was educated on proper hand placement and motor control. Pt has met all inpatient PT goals and can be discharged home with assist and home with home health when medically ready. Pt will not need a AD prior to d/c. Pt has no further inpatient PT needs, yet should continue to ambulate with staff frequently throughout the day to prevent deconditioning while hospitalized. Discharge Recommendations: Based on the current findings, Anticipated Discharge Disposition: home with assist when medically ready for hospital discharge. Consult Recommendations: No other consults recommended at this time. Equipment needs: No equipment necessary Goals: evaluation only Plan: Therapy Frequency: evaluation only Patient/family understand and agree with plan as stated above. 2017 PT Evaluation Code Rationale: ?? Diagnosis & Pertinent Co-Morbidities, personal factors, and present illness affecting Plan of Care: (see above); Additional personal factors or co- morbidities that impact plan: lives alone, PMH, Stairs ?? Total # of Factors: 0 1-2 3+ X ?? Examination of body system impairments, functional limitations and behaviors, and/or participation restrictions (Cardiovascular, Integumentary, Muscular, Nervous, Respiratory and Skeletal) Addressing 1-2 elements Addressing 3 + elements Addressing 4 + elements X ?? Clinical presentation: See assessment above. VSS Stable/Uncomplicated Evolving/Fluctuating Symptoms Unstable/Unpredictable X ?? Clinical decision making of low complexity based on pt's functional performance as outlined in this evaluation. Time IN / OUT: 11:15 - 11:44 Total Evaluation Minutes, Physical Therapy: 29(evaluation ) Isi Kingston [facility] Pager: [phone] Physical Therapy Inpatient Rehabilitation Department Associated attestation - Esau Caicedo PT - 04/25/2020 2:42 PM EDT Patient status, treatment interventions, and goals discussed with student. I am in agreement with all details and associated flowsheet rows as documented and was present for all aspects of the patient treatment session. Treatment session performed and note written with this flex o writer operator. Please do not hesitate to contact this flex o writer operator with any questions, thank you. Esau Isaac, PT Pager #[phone] Inpatient Rehabilitation * Hong Levi MD - 04/25/2020 7:33 AM EDT Inpatient Cardiology Progress Note Hospital Day 6 days Active Hospital Problems Diagnosis ??? 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 Aortic stenosis - moderate ??? Atrial fibrillation--- paroxysmal ??? Cholecystitis Resolved Hospital Problems No resolved problems to display. Active Hospital Problems Diagnosis ??? 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 Aortic stenosis - moderate ??? Atrial fibrillation--- paroxysmal ??? Cholecystitis Resolved Hospital Problems No resolved problems to display. ID: Ms. Chaudhary is a 79F with a PMH of HTN, HLD, DM, possible history of AF who presented as a transfer from [facility] for acute cholecystitis with a course complicated by afib with RVR and hypotension now transferring to the Cardiology service due to concern for severe (CORINE 0.8 at OSH) with consideration of direct intervention. 24 Hour Events/Subjective: - No acute events overnight - Denies chest pain and shortness of breath - mild discomfort to site of perc arron tube, increased output since yesterday (non-purulent) Inpatient Medications: Scheduled Meds: ??? potassium chloride ER 40 mEq Oral Once ??? metoprolol succinate XL 300 mg Oral Nightly ??? amLODIPine 5 mg Oral Nightly ??? rosuvastatin 20 mg Oral QPM ??? losartan 100 mg Oral Daily ??? pantoprazole EC 40 mg Oral Daily ??? AMIOdarone 200 mg Oral BID ??? aspirin 81 mg Oral Daily ??? clopidogreL 75 mg Oral Daily ??? acetaminophen 1,000 mg Oral Q8H ??? polyethylene glycoL (MIRALAX) oral powder 17 g Oral Daily ??? senna-docusate 2 tablet Oral BID ??? sodium chloride 0.9 % (flush) 5 mL Intravenous BID ??? heparin (Porcine) 5,000 Units Subcutaneous Q8H BASIL ??? piperacillin-tazobactam 3.375 g Intravenous Q8H ??? insulin lispro 1-4 Units Subcutaneous Q4H BASIL ??? insulin glargine 25 Units Subcutaneous Nightly Continuous Infusions: PRN Meds:.labetalol, ipratropium-albuteroL, bisacodyl EC, sodium chloride 0.9 % (flush), ondansetron OR ondansetron, oxyCODONE, glucose 40% oral geL OR dextrose 10% OR glucagon (human recombinant) Vitals: Last value 24hr range T 37.1 ??C (98.8 ??F) Temp: [36.6 ??C (97.9 ??F)-37.2 ??C (99 ??F)] HR 64 Heart Rate: [64-82] BP 157/47 BP: (138-204)/(45-68) RR 22 Resp: [18-30] SpO2 93 % SpO2: [93 %-96 %] Last value Initial Value Wt 83.8 kg (184 lb 11.9 oz) 86.2 kg (190 lb) Height 152.4 cm (5') 152.4 cm (5') Ins/Outs: Intake/Output Summary (Last 24 hours) at 04/25/2020 0734 Last data filed at 04/25/2020 0400 Gross per 24 hour Intake 500 ml Output 520 ml Net -20 ml Physical Exam: General: AOx3, no acute distress, resting comfortably in bed HENT: head normocephalic, atraumatic, no gross nasal drainage Mouth: moist oral mucosa Neck: soft, supple, without masses, trachea midline CV: regular rate, S1 and S2 appreciated, systolic murmur, extremities well- perfused, no peripheral edema Pulm: lungs clear bilaterally, symmetric chest rise, nonlabored breathing, on 1L oxygen Abd: soft, nondistended, mild RUQ tenderness to palpation MSK: moves all extremities, equal strength bilaterally Skin: warm, dry, pink Neuro: no focal deficits Psych: appropriate mood and affect Labs: Recent Labs 04/25/20 0505 04/24/20 0458 04/23/20 0225 WBC 14.1* 12.2* 10.0* HGB 10.0* 10.1* 8.9* HCT 30.9* 31.2* 27.4* PLATELET 396* 375* 360* Recent Labs 04/23/20 0225 04/22/20 0350 04/21/20 0330 INR 1.3 1.2 1.2 Recent Labs 04/25/20 0505 04/24/20 0458 04/23/20 1340 04/23/20 0225 NA 142 143 -- 142 K 3.1* 3.3* 3.7 3.3* CL 108* 108* -- 106 CO2 22 22 -- 24 BUN 16 25* -- 32* CREATININE 0.69* 0.74 -- 0.96 Recent Labs 04/25/20 0505 04/24/20 0458 04/23/20 0225 04/20/20 0243 AST 15 14 17 < > Not Perf 18 ALT 15 16 19 < > Not Perf 22 ALKPHOS 239* 243* 227* < > Not Perf 139* BILITOT 0.4 0.4 0.5 < > Not Perf 1.5* BILIDIR -- -- -- -- 0.5* < > = values in this interval not displayed. Recent Labs 04/25/20 0505 04/24/20 0458 04/23/20 0225 04/20/20 0243 CALCIUM 8.7 8.7 8.4* < > 8.3* MAGNESIUM 0.79 0.87 0.96 < > 0.71 PHOS -- -- -- -- 3.6 < > = values in this interval not displayed. Recent Labs 04/21/20 0445 04/20/20 2355 04/20/20 1735 TROPONINT 0.13* 0.12* 0.17* Recent Labs 04/22/20 0350 TSH 1.22 Recent Labs 04/22/20 0350 HA1C 8.5* Lab Results Component Value Date CHLPL 104 04/22/2020 HDL 17 04/22/2020 CHOLHDL 6.1 04/22/2020 TRIG 237 04/22/2020 LDLCHOL 40 04/22/2020 LDLDIRECT 73 02/28/2017 Imaging: SUMMARY: ?? 1. Mild concentric left ventricular hypertrophy is [...] by low stroke volume index (23 ml/m2). EKG: Post-cath EKG showed NSR with RBBB Assessment: Shannan Chaudhary is a 79 y.o. female with multiple cardiac risk factors in the form of HTN, HLD, and DM and now afib with RVR who presented to our service initialy as a preop consult and is now s/p stenting of her RCA, in the midst of active cholecystitis. She is stable post-catheterization, and is now planned for placement of a percutaneous cholecystostomy tube on 04/22 given her requirement forDAPT for at least 6 weeks with her new synergy stent -- she can likely be considered for a proper cholecystectomy after 6 weeks, when her DAPT can be paused for the procedure should it be needed. Thankfully her was found to not be as bad as suggested on her TTE, which obviates the need for a balloon valvuloplasty or valv e replacement in the near future, though it may be required eventually. ?? With regards to her hypoxic respiratory failure, the most likely explanation seems to be that when Ms. Chaudhary flipped into afib RVR, her EF dropped precipitously and led to significant pulmonary vascular congestion. Respiratory status improved with diuresis. She has an increasing leukocytosis for the last 2 days now She otherwise shows no s/s of worsening infection from a hemodynamic or symptomatic standpoint. Will touch base with Surgery regarding increased output and WBC. Will continue abx in the meantime. She will need follow-up with surgery in 6 weeks with IR cholecystostomy tube study. Plan: #NSTEMI, s/p stenting of RCA osteal lesion #Pulmonary edema 2/2 afib-RVR #Afib-RVR, now in sinus - Starting amiodarone 200mg bid as she did not tolerate the afib - ASA 81mg qd - Plavix 75mg qd - Metoprolol tartrate 75mg Q6H - Losartan 100mg - Rosuvastatin 20mg QHS ?? #Acute cholecystitis - Perc arron tube placed yesterday with IR with initial purulent output - Leukocytosis increased to 14 - Cultures from arron tube growing Klebsiella ornithinolytica, pansensitive - Continue zosyn for today, will transition to oral agent if needed tomorrow - touch base with Surgery today - Follow-up with surgery in 6 weeks for evaluation for cholecystectomy with IR cholecystostomy tubestudy #HF with elevated LVEDP #Pulmonary edema 2/2 afib RVR, now in sinus #Moderate aortic stenosis - Acute pulmonary edema due to acute systolic heart failure - CXR with pulmonary vascular congestion and R sided pleural effusion, s/p lasix x2 - Strict I/O's - Daily Weights ?? #Hypokalemia - Replacing and monitoring #Diabetes - Goal glucose < 180 - q4 hour finger sticks - Sensitive SSI in place - Continue nightly glargine 25u ?? # Misc Diet: Daily Healthy Menu Choices/Cardiac diet ([facility]-Diet) DVT ppx: SQH GI ppx: Protonix PT/OT consult ?? Code Status:Attempt Cardiopulmonary Resuscitation - Inpatient ?? Dispo- floor, possible discharge tomorrow Hong Levi MD Internal Medicine PGY3 Cardiology M1-S2 Team Pager [phone] Associated attestation - Abiodun Chun MD - 04/25/2020 3:09 PM EDT Cardiology Attending Addendum Active Hospital Problems Diagnosis 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 Aortic stenosis - moderate Atrial fibrillation--- paroxysmal Cholecystitis Resolved Hospital Problems No resolved problems to display. I have interviewed and examined the patient, reviewed the available data, and have discussed my findings, assessment and plan with the patient and the team on rounds today. I agree with Dr. Levi's note as below which reflects our discussion. * Julianna Hendrix MD - 04/24/2020 6:47 AM EDT Inpatient Cardiology Progress Note Hospital Day 5 days Active Hospital Problems Diagnosis ??? ASCVD (arteriosclerotic cardiovascular disease) s/p RCA osteal stent ??? Aortic stenosis - moderate ??? Atrial fibrillation--- paroxysmal ??? Cholecystitis Resolved Hospital Problems No resolved problems to display. Active Hospital Problems Diagnosis ??? ASCVD (arteriosclerotic cardiovascular disease) s/p RCA osteal stent ??? Aortic stenosis - moderate ??? Atrial fibrillation--- paroxysmal ??? Cholecystitis Resolved Hospital Problems No resolved problems to display. ID: Ms. Chaudhary is a 79F with a PMH of HTN, HLD, DM, possible history of AF who presented as a transfer from [facility] for acute cholecystitis with a course complicated by afib with RVR and hypotension now transferring to the Cardiology service due to concern for severe (CORINE 0.8 at OSH) with consideration of direct intervention. 24 Hour Events/Subjective: - No acute events overnight - Reports she didn't sleep well last night - Denies chest pain and shortness of breath - On room air Inpatient Medications: Scheduled Meds: ??? rosuvastatin 20 mg Oral QPM ??? losartan 100 mg Oral Daily ??? pantoprazole EC 40 mg Oral Daily ??? AMIOdarone 200 mg Oral BID ??? aspirin 81 mg Oral Daily ??? clopidogreL 75 mg Oral Daily ??? metoprolol tartrate 75 mg Oral Q6H BASIL ??? acetaminophen 1,000 mg Oral Q8H ??? polyethylene glycoL (MIRALAX) oral powder 17 g Oral Daily ??? senna-docusate 2 tablet Oral BID ??? sodium chloride 0.9 % (flush) 5 mL Intravenous BID ??? heparin (Porcine) 5,000 Units Subcutaneous Q8H BASIL ??? piperacillin-tazobactam 3.375 g Intravenous Q8H ??? insulin lispro 1-4 Units Subcutaneous Q4H BASIL ??? insulin glargine 25 Units Subcutaneous Nightly Continuous Infusions: PRN Meds:.ipratropium-albuteroL, bisacodyl EC, sodium chloride 0.9 % (flush), ondansetron OR ondansetron, oxyCODONE, glucose 40% oral geL OR dextrose 10% OR glucagon (human recombinant) Vitals: Last value 24hr range T 37.2 ??C (99 ??F) Temp: [36.5 ??C (97.7 ??F)-37.5 ??C (99.5 ??F)] HR 66 Heart Rate: [66-82] BP 156/61 BP: (114-200)/(48-95) RR 23 Resp: [18-32] SpO2 94 % SpO2: [92 %-95 %] Last value Initial Value Wt 83.8 kg (184 lb 11.9 oz) 86.2 kg (190 lb) Height 152.4 cm (5') 152.4 cm (5') Ins/Outs: Intake/Output Summary (Last 24 hours) at 04/24/2020 0647 Last data filed at 04/24/2020 0400 Gross per 24 hour Intake 1308 ml Output 475 ml Net 833 ml Physical Exam: General: AOx3, no acute distress, resting comfortably in bed HENT: head normocephalic, atraumatic, no gross nasal drainage Mouth: moist oral mucosa Neck: soft, supple, without masses, trachea midline CV: regular rate, S1 and S2 appreciated, systolic murmur, extremities well- perfused, no peripheral edema Pulm: lungs clear bilaterally, symmetric chest rise, nonlabored breathing, on 1L oxygen Abd: soft, nondistended, mild RUQ tenderness to palpation MSK: moves all extremities, equal strength bilaterally Skin: warm, dry, pink Neuro: no focal deficits Psych: appropriate mood and affect Labs: Recent Labs 04/24/20 0458 04/23/205 04/22/20 1405 WBC 12.2* 10.0* 12.6* HGB 10.1* 8.9* 9.5* HCT 31.2* 27.4* 29.3* PLATELET 375* 360* 340 Recent Labs 04/23/20 0225 04/22/20 0350 04/21/20 0330 INR 1.3 1.2 1.2 Recent Labs 04/24/20 0458 04/23/20 1340 04/23/20 0225 04/22/20 0350 NA 143 -- 142 -- 139 K 3.3* 3.7 3.3* < > 3.2* CL 108* -- 106 -- 103 CO2 22 -- 24 -- 24 BUN 25* -- 32* -- 34* CREATININE 0.74 -- 0.96 -- 1.10 < > = values in this interval not displayed. Recent Labs 04/24/20 0458 04/23/20 0225 04/22/20 0350 04/20/20 0243 AST 14 17 19 < > Not Perf 18 ALT 16 19 20 < > Not Perf 22 ALKPHOS 243* 227* 245* < > Not Perf 139* BILITOT 0.4 0.5 0.6 < > Not Perf 1.5* BILIDIR -- -- -- -- 0.5* < > = values in this interval not displayed. Recent Labs 04/24/20 04504/23/20 0225 04/22/20 0350 04/20/20 0243 CALCIUM 8.7 8.4* 8.4* < > 8.3* MAGNESIUM 0.87 0.96 1.46* < > 0.71 PHOS -- -- -- -- 3.6 < > = values in this interval not displayed. Recent Labs 04/21/20 0445 04/20/20 2355 04/20/20 1735 TROPONINT 0.13* 0.12* 0.17* Recent Labs 04/22/20 0350 TSH 1.22 Recent Labs 04/22/20 0350 HA1C 8.5* Lab Results Component Value Date CHLPL 104 04/22/2020 HDL 17 04/22/2020 CHOLHDL 6.1 04/22/2020 TRIG 237 04/22/2020 LDLCHOL 40 04/22/2020 LDLDIRECT 73 02/28/2017 Imaging: SUMMARY: ?? 1. Mild concentric left ventricular hypertrophy is [...] by low stroke volume index (23 ml/m2). EKG: Post-cath EKG showed NSR with RBBB Assessment: Shannan Chaudhary is a 79 y.o. female with multiple cardiac risk factors in the form of HTN, HLD, and DM and now afib with RVR who presented to our service initialy as a preop consult and is now s/p stenting of her RCA, in the midst of active cholecystitis. She is stable post-catheterization, and is now planned for placement of a percutaneous cholecystostomy tube on 04/22 given her requirement forDAPT for at least 6 weeks with her new synergy stent -- she can likely be considered for a proper cholecystectomy after 6 weeks, when her DAPT can be paused for the procedure should it be needed. Thankfully her was found to not be as bad as suggested on her TTE, which obviates the need for a balloon valvuloplasty or valve replacement in the near future, though it may be required eventually. ?? With regards to her hypoxic respiratory failure, the most likely explanation seems to be that when Ms. Chaudhary flipped into afib RVR, her EF dropped precipitously and led to significant pulmonary vascular congestion. Respiratory status improved with diuresis. PT to evaluate today for discharge to home vs facility. She will need follow-up with surgery in 6 weeks with IR cholecystostomy tube study. Plan: #NSTEMI, s/p stenting of RCA osteal lesion #Pulmonary edema 2/2 afib-RVR #Afib-RVR, now in sinus - Starting amiodarone 200mg bid as she did not tolerate the afib - ASA 81mg qd - Plavix 75mg qd - Metoprolol tartrate 75mg Q6H - Losartan 100mg - Rosuvastatin 20mg QHS ?? #Acute cholecystitis - Perc arron tube placed yesterday with IR with initial purulent output - Leukocytosis increased to 12.2 from 10, afebrile - Cultures from arron tube growing Klebsiella ornithinolytica, pansensitive - Continue zosyn for today, will transition to oral agent if needed tomorrow - Follow-up with surgery in 6 weeks for evaluation for cholecystectomy with IR cholecystostomy tubestudy #HF with elevated LVEDP #Pulmonary edema 2/2 afib RVR, now in sinus #Moderate aortic stenosis - Acute pulmonary edema due to acute systolic heart failure - CXR with pulmonary vascular congestion and R sided pleural effusion, s/p lasix x2 - Strict I/O's - Daily Weights ?? #Hypokalemia - K 3.3 this morning - Replacing and monitoring #Diabetes - Goal glucose < 180 - q4 hour finger sticks - Sensitive SSI in place - Continue nightly glargine 25u ?? # Misc Diet: Cardiac diet DVT ppx: SQH GI ppx: Protonix PT/OT consult ?? Code Status:Attempt Cardiopulmonary Resuscitation - Inpatient ?? Dispo- floor, possible discharge tomorrow Julianna Hendrix MD PGY-1 Team Pager [phone] Associated attestation - Abiodun Chun MD - 04/24/2020 9:33 PM EDT Cardiology Attending Addendum Active Hospital Problems Diagnosis ASCVD (arteriosclerotic cardiovascular disease) s/p RCA osteal stent Aortic stenosis - moderate Atrial fibrillation--- paroxysmal Cholecystitis Resolved Hospital Problems No resolved problems to display. I have interviewed and examined the patient, reviewed the available data, and have discussed my findings, assessment and plan with the patient and the team on rounds today. I agree with Dr. Hendrix's note as below which reflects our discussion. * Peyman Santos MD - 04/23/2020 3:50 PM EDT ICU PROGRESS NOTE DOA: 04/19/2020 Diet: Daily Healthy Menu Choices/Cardiac diet ([facility]-Diet) Code: Attempt Cardiopulmonary Resuscitation - Inpatient Room: CV21/CV21-A ID: Shannan Chaudhary ( ) is a 79 y.o. female with a history of HTN, HLD, severe and possible afib, who was transferred from [facility] to the SICU for acute cholecystitis. Her course was complicated by NSTEMI, afib with RVR causing hypotension in the setting of , hypoxic respiratory failure with increasing O2 requirements which prompted heart cath and transfer to [facility] care. Operative Procedures: 04/21/2020 Procedure(s): CARDIAC CATHETERIZATION Hospital/ICU course has been significant for: Patient underwent right heart catheterization yesterday (04/21), which revealed 2 vessel coronary disease of LAD and LCA. One stent was placed in the RCA. 24hr events: PCT tube placed with IR yesterday, no abdominal pain. Afebrile with decreasing white count. No acute issues related to PCI. Physical Exam: Patient Vitals for the past 8 hrs: BP Temp Temp src Pulse Resp SpO2 04/23/20 1406 (!) 114/95 -- -- 74 25 92 % 04/23/20 1140 157/54 36.6 ??C (97.9 ??F) Oral 74 30 92 % 04/23/20 1000 -- -- -- 70 26 93 % 04/23/20 0800 -- 36.5 ??C (97.7 ??F) Oral 69 (!) 32 95 % General: Comfortable sitting up in chair. Conversant. Lungs: Breathing comfortably. Good air movement. Heart: irregularly irregular, rate is controlled Abdomen: soft, non-tender, non-distended, RUQ drain in place, C/D/I Extremities: no edema Neuro: Alert and oriented x3, no focal deficits Antibiotic Hx: - zosyn for acute cholecystitis Imaging/Studies: Cholecystostomy Tube Placement 04/22/20 Findings/Impression: Cholecystostomy catheter placement (10-Fr catheter). 90 cc purulent bile aspirated; sample sent for gram stain and culture. No complications Result Date: 04/22/2020 EXAMINATION: XR CHEST ONE VIEW CLINICAL HISTORY: Pulmonary vascular congestion and new hypoxic respiratory failure, assess progression TECHNIQUE: Portable AP chest radiograph on 04/22/2020 at 0610 hours. COMPARISON: 04/21/2020 at 0444 hours. FINDINGS: Findings consistent with right-sided pleural effusion, and likely largely subpulmonic, with atelectasis of the right lung base, rather than elevated hemidiaphragm. Persistent pulmonary vascular congestion, but slightly improved interstitial edema. Unchanged cardiac silhouette. Persistent pulmonary vascular congestion. Improved interstitial edema. Persistent right-sided pleural effusion, predominantly subpulmonic. Thank you for letting us participate in the care of this patient. For questions regarding this report, please contact the number below. FINDINGS/IMPRESSION: Elevated RIGHT hemidiaphragm with some degree of basilar pleural-parenchymal opacification (likely effusion with atelectasis, although aspiration or pneumonia not excluded). Pulmonary vascular congestion and mild pulmonary edema. No pneumothorax seen. Cardiopericardial silhouette appears slightly globular and prominent, possibly accentuated by patient rotation. Result Date: 04/19/2020 EXAMINATION: REQUEST FOR 2ND READ CT ABDOMEN AND PELVIS CLINICAL HISTORY: cholecystitis, eval CBD as well; What Modality is the exam? CT Scan; Body Part (please add comments as necessary): abd/pelvis; Sending Institution [facility]; Date of exam [id number]; I believe a reinterpretation of this exam may alter care of Patient. Yes TECHNIQUE: Helical CT of the abdomen and pelvis was performed without contrast. COMPARISON: None FINDINGS: The absence of intravenous contrast limits the evaluation of solid viscera and vasculature. Lower chest: Normal. Liver: Normal. Bile ducts: Nondilated. Gallbladder: Distended/hydropic, measuring 5.5 cm across. Diffuse gallbladder wall thickening. Layering cholelithiasis.. Pericholecystic fat stranding. Pancreas: No pancreatic ductal dilatation or peripancreatic fluid. Spleen: Normal. Adrenals: Normal. Kidneys: No renal collecting system obstruction bilaterally Urinary Bladder: Normal. Vasculature: No aneurysm. Lymph Nodes: No enlarged lymph nodes. Bowel: Nondilate d, no wall thickening. Peritoneum and mesentery: Pericholecystic fat stranding. No loculated collections. Abdominal wall: Small fat-containing periumbilical hernia. Reproductive organs: No adnexal masses Osseous structures: No suspicious lesions. 1. Hydropic gallbladder with gallbladder wall thickening, layering cholelithiasis, pericholecystic fat stranding; findings strongly suggestive of acute cholecystitis. Clinical correlation. Thank you for letting us participate in the care of this patient. For questions regarding this report, please contact the number below. Assessment: Shannan Chaudhary is a 79 y.o. female s/p catheterization with one stent placed in LAD,currently on 5L NC. Overall stable. Scheduled for percutaneous cholecystostomy tube placement with IR this afternoon. Neuro: -Tylenol for pain CV: NSTEMI, HF, Moderate aortic stenosis, Afib-RVR. Currently HDS - Metoprolol 75 mg Q6H - Amiodarone 200 mg BID - ASA 81 mg - Plavix 75 mg - losartan 100 mg - rosuvastatin 20 mg Pulm: Pulmonary edema likely related to afib w RVR. Pleural effusion on right. Elevated right hemidiaphragm. Good response to Lasix yesterday x2. - Strict I/O - encourage IS GI: Patient has acute cholecystitis. PCT placed yesterday. - Continue zosyn - Follow cultures from PCT placement - 6 week follow up with Surgery -Diet: Daily Healthy Menu Choices/Cardiac diet ([facility]-Diet). /FEN: Keep roque, monitor UOP. K of 3.3 this am - Replete K and monitor MSK: No active issues ID: Acute cholecystitis, PCT placed. Stain showed GNR. - Follow cultures -afebrile, WBC 10 down from 13.3 yesterday -no active issues. -zosyn, continue for 2 days following PCT Heme: -Hgb 8.9 up from 8.6 yesterday, stable. -DVT prophylaxis: SCDs and SQH. Endo: Diabetes - glucose < 180 - SSI Code Status: Attempt Cardiopulmonary Resuscitation - Inpatient Dispo: -ICU status Peyman Santos MD 04/23/2020 * Magdalene Lopez MD - 04/23/2020 3:09 PM EDT Acute Care Surgery Progress Note ID: Shannan Chaudhary is a 79 y.o. female with PMH IDDM and reported aortic stenosis with valve area 0.8 (records unavailable in [facility] but reviewed by [facility] referring MD) who is admitted in transfer with cholecystitis. She reports that she vaguely recalls a previous echo and need for cardiology follow-up within the past year, but then she broke her leg and was then further delayed in her presentation due to COVID-19. She was due for a stress test recently but did not make the visit due to her admission for cholecystitis. Subjective/24 hour events: - Went for cholecystostomy tube yesterday - Answering questions appropriately this morning with a downtrend ing WBC. - Afebrile overnight, did not have large SIRS response from placement. - Denies RUQ pain. Physical Exam: Last value Range last 24 hrs Temperature Temp: 36.6 ??C (97.9 ??F) Temp: [36.5 ??C (97.7 ??F)-37.3 ??C (99.1 ??F)] Heart Rate Heart Rate: 74 Heart Rate: [63-74] Blood Pressure BP: (!) 114/95 BP: (114-157)/(54-95) BP (Arterial Line): (106-181)/(38-68) Respiratory Rate Resp: 25 Resp: [18-32] SpO2 SpO2: 92 % SpO2: [92 %-100 %] Physical Exam: General: NAD, resting comfortably, pleasant, conversant Neuro: grossly intact, nonfocal, moving all four extremities spontaneously HEENT: NCAT, anicteric sclera CVS: irregularly irregular Pulm: non-labored breathing Abd: soft, minimally TTP in RUQ. Skin: warm, dry Intake/Output Summary (Last 24 hours) at 04/23/2020 1509 Last data filed at 04/23/2020 1400 Gross per 24 hour Intake 1160 ml Output 1255 ml Net -95 ml Labs: Recent Labs 04/23/20 0225 04/22/20 1405 04/22/20 0350 WBC 10.0* 12.6* 13.5* HGB 8.9* 9.5* 8.6* HCT 27.4* 29.3* 26.8* PLATELET 360* 340 313 Recent Labs 04/23/20 1340 04/23/20 0225 04/22/20 1745 04/22/20 0350 04/21/20 2200 NA -- 142 -- 139 138 K 3.7 3.3* 3.4* 3.2* 3.6 CL -- 106 -- 103 102 CO2 -- 24 -- 24 24 BUN -- 32* -- 34* 31* CREATININE -- 0.96 -- 1.10 1.00 GLUCOSE -- 134 -- 157 231* Recent Labs 04/23/20 0225 04/22/20 0350 PT 14.6* 13.9* INR 1.3 1.2 Assessment/Plan: 79y F w/ severe (valve area 0.8) transferred to [facility] with acute cholecystitis. She has undergonePCI of her coronaries x2 yesterday and now in aspirin and plavix. She appears to have a good response to the cholecystostomy tube. Denies any further pain and exam is remarkably improved. Okay to advance diet as tolerated. Jeevan Black MD General Surgery 04/23/2020 Attending Addendum I have seen and examined the patient, I have reviewed the vitals, labs and pertinent imaging. I have discussed the documentation above and agree, with the following comments: Doing well, tolerated a sandwich and soup at lunch, abdominal pain much improved. Will sign off at this time, she will require followup with us in general surgery in 6 weeks at the time of her IR cholecystostomy tube study. Magdalene Lopez MD [phone] * Julianna Hendrix MD - 04/23/2020 6:51 AM EDT Inpatient Cardiology Progress Note Hospital Day 4 days Active Hospital Problems Diagnosis ??? 79 yo F with DM and HTN--- txf from [facility] with cholecystitis, AF with RVR, hypoxia, and concern for severe . Cath showed not severe, high grade ostial RCA stented, AF converted spontaneously ??? Atrial fibrillation--- paroxysmal ??? Cholecystitis Resolved Hospital Problems No resolved problems to display. Active Hospital Problems Diagnosis ??? 79 yo F with DM and HTN--- txf from [facility] with cholecystitis, AF with RVR, hypoxia, and concern for severe . Cath showed not severe, high grade ostial RCA stented, AF converted spontaneously ??? Atrial fibrillation--- paroxysmal ??? Cholecystitis Resolved Hospital Problems No resolved problems to display. ID: Ms. Chaudhary is a 79F with a PMH of HTN, HLD, DM, possible history of AF who presented as a transfer from [facility] for acute cholecystitis with a course complicated by afib with RVR and hypotension now transferring to the Cardiology service due to concern for severe (CORINE 0.8 at OSH) with consideration of direct intervention. 24 Hour Events/Subjective: - Perc arron tube yesterday with IR - Reports feeling well this morning - Denies chest pain and shortness of breath - On room air Inpatient Medications: Scheduled Meds: ??? AMIOdarone 200 mg Oral BID ??? losartan 50 mg Oral Daily ??? pantoprazole 40 mg Intravenous Daily ??? aspirin 81 mg Oral Daily ??? clopidogreL 75 mg Oral Daily ??? metoprolol tartrate 75 mg Oral Q6H BASIL ??? acetaminophen 1,000 mg Oral Q8H ??? polyethylene glycoL (MIRALAX) oral powder 17 g Oral Daily ??? senna-docusate 2 tablet Oral BID ??? rosuvastatin 10 mg Oral QPM ??? sodium chloride 0.9 % (flush) 5 mL Intravenous BID ??? heparin (Porcine) 5,000 Units Subcutaneous Q8H BASIL ??? piperacillin-tazobactam 3.375 g Intravenous Q8H ??? insulin lispro 1-4 Units Subcutaneous Q4H BASIL ??? insulin glargine 25 Units Subcutaneous Nightly Continuous Infusions: ??? nitroGLYcerin Stopped (04/22/20 0033) PRN Meds:.potassium chloride in water OR potassium chloride in water OR potassium chloride in water, ipratropium-albuteroL, labetalol, fentaNYL (PF), heparin (porcine), fentaNYL (PF), midazolam (PF), clopidogreL, nitroGLYcerin, iohexoL, midazolam (PF), atropine, fentaNYL (PF), bisacodyl EC,sodium chloride 0.9 % (flush), ondansetron OR ondansetron, HYDROmorphone, oxyCODONE, glucose 40% oral geL OR dextrose 10% OR glucagon (human recombinant) Vitals: Last value 24hr range T 37.3 ??C (99.1 ??F) Temp: [36.5 ??C (97.7 ??F)-37.3 ??C (99.1 ??F)] HR 69 Heart Rate: [63-77] BP 135/59 BP: (135)/(59) RR 19 Resp: [18-29] SpO2 98 % SpO2: [94 %-100 %] Last value Initial Value Wt 83.8 kg (184 lb 11.9 oz) 86.2 kg (190 lb) Height 152.4 cm (5') 152.4 cm (5') Ins/Outs: Intake/Output Summary (Last 24 hours) at 04/23/2020 0651 Last data filed at 04/23/2020 0600 Gross per 24 hour Intake 340 ml Output 2505 ml Net -2165 ml Physical Exam: General: AOx3, no acute distress, resting comfortably in bed HENT: head normocephalic, atraumatic, no gross nasal drainage Mouth: moist oral mucosa Neck: soft, supple, without masses, trachea midline CV: regular rate, S1 and S2 appreciated, systolic murmur, extremities well- perfused, no peripheral edema Pulm: improved lung sounds bilaterally, symmetric chest rise, nonlabored breathing, on 1L oxygen Abd: soft, nondistended, mild RUQ tenderness to palpation MSK: moves all extremities, equal strength bilaterally Skin: warm, dry, pink Neuro: no focal deficits Psych: appropriate mood and affect Labs: Recent Labs 04/23/2022404/22/20 1405 04/22/20 0350 WBC 10.0* 12.6* 13.5* HGB 8.9* 9.5* 8.6* HCT 27.4* 29.3* 26.8* PLATELET 360* 340 313 Recent Labs 04/23/2022404/22/20 0350 04/21/20 0330 INR 1.3 1.2 1.2 Recent Labs 04/23/2022404/22/20 1745 04/22/20 0350 04/21/20 2200 NA 142 -- 139 138 K 3.3* 3.4* 3.2* 3.6 CL 106 -- 103 102 CO2 24 -- 24 24 BUN 32* -- 34* 31* CREATININE 0.96 -- 1.10 1.00 Recent Labs 04/23/20224 04/22/20 0350 04/21/20 0330 04/20/20 0243 AST 17 19 38* Not Perf 18 ALT 19 20 29 Not Perf 22 ALKPHOS 227* 245* 257* Not Perf 139* BILITOT 0.5 0.6 1.0 Not Perf 1.5* BILIDIR -- -- -- 0.5* Recent Labs 04/23/20 0225 04/22/20 0350 04/21/20 2200 04/21/20 0330 04/20/20 0243 CALCIUM 8.4* 8.4* 8.5 8.6 8.3* MAGNESIUM 0.96 1.46* -- 1.09* 0.71 PHOS -- -- -- -- 3.6 Recent Labs 04/21/20 0445 04/20/20 2355 04/20/20 1735 TROPONINT 0.13* 0.12* 0.17* Recent Labs 04/22/20 0350 TSH 1.22 Recent Labs 04/22/20 0350 HA1C 8.5* Lab Results Component Value Date CHLPL 104 04/22/2020 HDL 17 04/22/2020 CHOLHDL 6.1 04/22/2020 TRIG 237 04/22/2020 LDLCHOL 40 04/22/2020 LDLDIRECT 73 02/28/2017 Imaging: SUMMARY: ?? 1. Mild concentric left ventricular hypertrophy is [...] by low stroke volume index (23 ml/m2). EKG: Post-cath EKG showed NSR with RBBB Assessment: Shannan Chaudhary is a 79 y.o. female with multiple cardiac risk factors in the form of HTN, HLD, and DM and now afib with RVR who presented to our service initialy as a preop consult and is now s/p stenting of her RCA, in the midst of active cholecystitis. She is stable post-catheterization, and is now planned for placement of a percutaneous cholecystostomy tube on 04/22 given her requirement forDAPT for at least 6 weeks with her new synergy stent -- she can likely be considered for a proper cholecystectomy after 6 weeks, when her DAPT can be paused for the procedure should it be needed. Thankfully her was found to not be as bad as suggested on her TTE, which obviates the need for a balloon valvuloplasty or valve replacement in the near future, though it may be required eventually. ?? With regards to her hypoxic respiratory failure, the most likely explanation seems to be that when Ms. Chaudhary flipped into afib RVR, her EF dropped precipitously and led to significant pulmonary vascular congestion. Respiratory status improved with diuresis. Plan: #NSTEMI, s/p stenting of RCA osteal lesion #Pulmonary edema 2/2 afib-RVR #Afib-RVR, now in sinus - Starting amiodarone 200mg bid as she did not tolerate the afib - ASA 81mg qd - Plavix 75mg qd - Metoprolol tartrate 75mg Q6H - Losartan 100mg - Rosuvastatin 20mg QHS ?? #Acute cholecystitis - Perc arron tube placed yesterday with IR with initial purulent output - Leukocytosis improving, afebrile - Continue zosyn, ensure resolution of leukocytosis - Cultures from arron tube pending, gram stain with gram negative rods - Follow-up with surgery in 6 weeks for evaluation for cholecystectomy #HF with elevated LVEDP #Pulmonary edema 2/2 afib RVR, now in sinus #Moderate aortic stenosis - Acute pulmonary edema due to acute systolic heart failure - CXR with pulmonary vascular congestion and R sided pleural effusion, s/p lasix x2 - Strict I/O's - Daily Weights ?? #Hypokalemia - K 3.3 this morning - Replacing and monitoring #Diabetes - Goal glucose < 180 - q4 hour finger sticks - Sensitive SSI in place - Continue nightly glargine 25u ?? # Misc Diet: Cardiac diet DVT ppx: SQH GI ppx: Protonix PT/OT consult ?? Code Status:Attempt Cardiopulmonary Resuscitation - Inpatient ?? Dispo- transfer to floor Julianna Hendrix MD PGY-1 Team Pager [phone] Associated attestation - Abiodun Chun MD - 04/23/2020 3:49 PM EDT Cardiology Attending Addendum Active Hospital Problems Diagnosis ASCVD (arteriosclerotic cardiovascular disease) s/p RCA osteal stent Aortic stenosis - moderate Atrial fibrillation--- paroxysmal Cholecystitis Resolved Hospital Problems No resolved problems to display. I have interviewed and examined the patient, reviewed the available data, and have discussed my findings, assessment and plan with the patient and the team on rounds today. I agree with Dr. Hendrix's note as below which reflects our discussion. * Michael Baron MD - 04/23/2020 6:37 AM EDT INTERVENTIONAL RADIOLOGY Inpatient Progress Note Admitted 04/19/2020 Procedure(s): Cholecystostomy tube placement Post-procedure day: #1 Time of patient encounter: 640 am 24 Hour Events: No acute events overnight. Patient states feeling a lot better since the cholecystostomy catheter was placed. Denies pain. Last Value 24 Hour Range Temperature 37.3 ??C (99.1 ??F) Temp: [36.5 ??C (97.7 ??F)-37.3 ??C (99.1 ??F)] Heart Rate 69 Heart Rate: [63-77] Blood Pressure 135/59 BP: (135)/(59) Respiratory Rate 19 Resp: [18-29] SpO2 98 % SpO2: [94 %-100 %] Physical Exam GEN No distress CARDS Acyanotic LUNGS Non labored breathing ABD Non tender, nondistended Drains/Tubes: Cholecystostomy catheter with bilious drainage (155 ml). Intake/Output Summary (Last 24 hours) at 04/23/2020 0637 Last data filed at 04/23/2020 0600 Gross per 24 hour Intake 340 ml Output 2505 ml Net -2165 ml Labs: Reviewed, WBC down trending Micro: Few gram negative rods Assessment: 79 y.o. female with acute cholecystitis and severe , 2 vessel CAD s/p coronary arterystending requiring clopidogrel and aspirin. IR placed cholecystostomy catheter on 02/20. Plan: Cholecystostomy catheter to gravity bag drainage IR drain check in 6 weeks if needed (order placed). IR to sign off. Please call with questions, concerns, and as needed. All other cares per primary team. Veto Baron M.D. PGY-5 Interventional Radiology * Magdalene Lopez MD - 04/22/2020 2:29 PM EDT Acute Care Surgery Progress Note ID: Shannan Chaudhary is a 79 y.o. female with PMH IDDM and reported aortic stenosis with valve area 0.8 (records unavailable in [facility] but reviewed by [facility] referring MD) who is admitted in transfer with cholecystitis. She reports that she vaguely recalls a previous echo and need for cardiology follow-up within the past year, but then she broke her leg and was then further delayed in her presentation due to COVID-19. She was due for a stress test recently but did not make the visit due to her admission for cholecystitis. Subjective/24 hour events: - Transferred to cardiology service. - Yesterday went for coronary stent placement. ON aspirin plavix. - Delirious this morning during out exam. Physical Exam: Last value Range last 24 hrs Temperature Temp: 36.5 ??C (97.7 ??F) Temp: [36.5 ??C (97.7 ??F)-36.8 ??C (98.2 ??F)] Heart Rate Heart Rate: 70 Heart Rate: [63-151] Blood Pressure BP: 135/59 BP: (100-193)/(40-95) BP (Arterial Line): (150-163)/(51-63) Respiratory Rate Resp: 29 Resp: [11-29] SpO2 SpO2: 96 % SpO2: [91 %-100 %] Physical Exam: General: NAD, resting comfortably, pleasant, conversant Neuro: grossly intact, nonfocal, moving all four extremities spontaneously HEENT: NCAT, anicteric sclera CVS: irregularly irregular Pulm: non-labored breathing Abd: soft, exquisitely TTP in RUQ. Skin: warm, dry Intake/Output Summary (Last 24 hours) at 04/22/2020 1429 Last data filed at 04/22/2020 1400 Gross per 24 hour Intake 269.87 ml Output 4185 ml Net -3915.13 ml Labs: Recent Labs 04/22/20 0350 04/21/20 0330 04/20/20 0325 WBC 13.5* 16.9* 17.9* HGB 8.6* 10.1* 10.3* HCT 26.8* 31.1* 32.6* PLATELET 313 275 217 Recent Labs 04/22/20 0350 04/21/20 2200 04/21/20 0330 NA 139 138 138 K 3.2* 3.6 3.7 CL 103 102 102 CO2 24 24 21* BUN 34* 31* 39* CREATININE 1.10 1.00 1.31* GLUCOSE 157 231* 149 Recent Labs 04/22/20 0350 04/21/20 0330 PT 13.9* 14.4* INR 1.2 1.2 Assessment/Plan: 79y F w/ severe (valve area 0.8) transferred to [facility] with acute cholecystitis. She has undergonePCI of her coronaries x2 yesterday and now in aspirin and plavix. She continues to have leukocytosis with significant TTP in RUQ. Recommending cholecystostomy tube placement by IR today and interval c holecystectomy as an elective procedure. Jeevan Black MD General Surgery 04/22/2020 Attending Addendum I have seen and examined the patient, I have reviewed the vitals, labs and pertinent imaging. I have discussed the documentation above and agree, with the following comments: Unable to appropriately answer questions at the time of my exam, however clear RUQ tenderness on exam - therefore recommending IR placement of percutaneous cholecystostomy tube at this time. Will follow with you post procedure. Magdalene Lopez MD [phone] * Peyman Santos MD - 04/22/2020 2:04 PM EDT ICU PROGRESS NOTE DOA: 04/19/2020 Diet: NPO diet (Give Meds) Code: Attempt Cardiopulmonary Resuscitation - Inpatient Room: [facility] ID: Shannan Chaudhary ( ) is a 79 y.o. female with a history of HTN, HLD, severe and possible afib, who was transferred from [facility] to the SICU for acute cholecystitis. Her course was complicated by NSTEMI, afib with RVR causing hypotension in the setting of , hypoxic respiratory failure with increasing O2 requirements which prompted heart cath and transfer to [facility] care. Operative Procedures: 04/21/2020 Procedure(s): CARDIAC CATHETERIZATION Hospital/ICU course has been significant for: Patient underwent right heart catheterization yesterday (04/21), which revealed 2 vessel coronary disease of LAD and LCA. One stent was placed in the RCA. 24hr events: Cardiac catheterization yesterday. Plan for percutaneous cholecystostomy tube placement with IR today. Patient placed on BiPAP yesterday for a few hours for desaturation in the setting of continued supplemental O2 needs, currently on 5L NC. Left radial arterial line placed this morning. Physical Exam: Patient Vitals for the past 8 hrs: BP Temp Temp src Pulse Resp SpO2 04/22/20 1349 -- -- -- 70 29 96 % 04/22/20 1200 -- -- -- 77 23 97 % 04/22/20 0800 135/59 36.5 ??C (97.7 ??F) Oral 65 23 96 % General: somnolent, but rousable Lungs: Diminished breath sounds at right lung base, good air movement. Heart: irregular, rate is controlled Abdomen: soft, tender in the RUQ Extremities: no edema Neuro: Alert and oriented x3, no focal deficits Antibiotic Hx: - zosyn for acute cholecystitis Imaging/Studies: Result Date: 04/22/2020 EXAMINATION: XR CHEST ONE VIEW CLINICAL HISTORY: Pulmonary vascular congestion and new hypoxic respiratory failure, assess progression TECHNIQUE: Portable AP chest radiograph on 04/22/2020 at 0610 hours. COMPARISON: 04/21/2020 at 0444 hours. FINDINGS: Findings consistent with right-sided pleural effusion, and likely largely subpulmonic, with atelectasis of the right lung base, rather than elevated hemidiaphragm. Persistent pulmonary vascular congestion, but slightly improved interstitial edema. Unchanged cardiac silhouette. Persistent pulmonary vascular congestion. Improved interstitial edema. Persistent right-sided pleural effusion, predominantly subpulmonic. Thank you for letting us participate in the care of this patient. For questions regarding this report, please contact the number below. FINDINGS/IMPRESSION: Elevated RIGHT hemidiaphragm with some degree of basilar pleural-parenchymal opacification (likely effusion with atelectasis, although aspiration or pneumonia not excluded). Pulmonary vascular congestion and mild pulmonary edema. No pneumothorax seen. Cardiopericardial silhouette appears slightly globular and prominent, possibly accentuated by patient rotation. Result Date: 04/19/2020 EXAMINATION: REQUEST FOR 2ND READ CT ABDOMEN AND PELVIS CLINICAL HISTORY: cholecystitis, eval CBD as well; What Modality is the exam? CT Scan; Body Part (please add comments as necessary): abd/pelvis; Sending Institution [facility]; Date of exam [id number]; I believe a reinterpretation of this exam may alter care of Patient. Yes TECHNIQUE: Helical CT of the abdomen and pelvis was performed without contrast. COMPARISON: None FINDINGS: The absence of intravenous contrast limits the evaluation of solid viscera and vasculature. Lower chest: Normal. Liver: Normal. Bile ducts: Nondilated. Gallbladder: Distended/hydropic, measuring 5.5 cm across. Diffuse gallbladder wall thickening. Layering cholelithiasis.. Pericholecystic fat stranding. Pancreas: No pancreatic ductal dilatation or peripancreatic fluid. Spleen: Normal. Adrenals: Normal. Kidneys: No renal collecting system obstruction bilaterally Urinary Bladder: Normal. Vasculature: No aneurysm. Lymph Nodes: No enlarged lymph nodes. Bowel: Nondilate d, no wall thickening. Peritoneum and mesentery: Pericholecystic fat stranding. No loculated collections. Abdominal wall: Small fat-containing periumbilical hernia. Reproductive organs: No adnexal masses Osseous structures: No suspicious lesions. 1. Hydropic gallbladder with gallbladder wall thickening, layering cholelithiasis, pericholecystic fat stranding; findings strongly suggestive of acute cholecystitis. Clinical correlation. Thank you for letting us participate in the care of this patient. For questions regarding this report, please contact the number below. Assessment: Shannan Chaudhary is a 79 y.o. female s/p catheterization with one stent placed in LAD,currently on 5L NC. Overall stable. Scheduled for percutaneous cholecystostomy tube placement with IR this afternoon. Neuro: -Tylenol for pain CV: NSTEMI, HF, Afib-RVR. Currently HDS - Metoprolol 75 mg Q6H - ASA 81 mg - Plavix 75 mg - losartan 50 mg - rosuvastatin 10 mg Pulm: Pulmonary edema likely related to afib w RVR. Pleural effusion on right. Elevated right hemidiaphragm. - Lasix 40 mg this morning - encourage IS GI: Patient has acute cholecystitis. Will undergo PCT placement today with IR. -Diet: NPO diet (Give Meds). /FEN: keep roque, monitor UOP MSK: No active issues ID: Acute cholecystitis, PCT placement today -afebrile, WBC 13.3 -no active issues. -zosyn, continue for 2 days following PCT Heme: -Hgb 8.6, stable. -DVT prophylaxis: SCDs and SQH. Endo: Diabetes - glucose < 180 - SSI Code Status: Attempt Cardiopulmonary Resuscitation - Inpatient Dispo: -ICU status Peyman Santos MD 04/22/2020 Associated attestation - Kelin Patel MD - 04/23/2020 10:28 AM EDT I agree with the physical examination, of note she is not in acute distress and her abdomen is tender. I agree with the assessment and plan. Manage acute cholecystitis as per surgical team. Meanwhile, adjust cardiac regimen post PCI. * Peyman Santos MD - 04/22/2020 9:27 AM EDT Arterial Line Placement Procedure Note Indication for Procedure: Arterial line was placed for invasive blood pressure monitoring, arterialblood gases and blood sampling for laboratory test. Procedure Diagnosis: NSTEMI s/p heart cath, afib Location of Procedure: Critical Care. Risks and Benefits: The risks and benefits of this procedure were reviewed and informed consent wasobtained. Time Out: Prior to the start of the procedure, the patient's identity, intended procedure, site/side, correct patient positioning and presence of the site logan was confirmed as applicable. The medical history and chart were reviewed to rule out potential contraindications to the planned procedure. Hand Hygiene: The cobol application developer did perform hand hygiene prior to arterial line insertion. Procedure Prep: Sterile draping was applied. Skin was prepped with chlorhexidine. 6 ml of 1% Lidocaine was used for local anesthesia. Full barrier precautions were used. Procedure Details: A 22 gauge, 2 inch catheter was placed in the left radial artery and secured with tape and steri-strips. Tegaderm was applied. Ultrasound was used for guidance. Guide wire was usedin this procedure. The guide wire had a diameter of .018 inches. There were 2 attempts. Findings: There were no procedure complications. Blood was drawn with ease. Good wave form. Procedure Comments: Left radial arterial line was placed with no complications. Peyman Santos MD 9:31 AM 04/22/20 Associated attestation - Kelin Patel MD - 04/22/2020 3:03 PM EDT I was the attending physician supervising the resident in the above care and I was present with theresident for the sanchez component(s) of the procedure and remained immediately available throughout the remainder. * Sandy Camargo DO - 04/22/2020 8:10 AM EDT Interventional Scientific Software Engineer Note 79 year old female with moderate aortic stenosis, HTN, HLD, DM and atrial fibrillation who presented with acute cholecystitis with hospital course complicated by NSTEMI, now s/p cardiac cath on 04/21/2020 which revealed significant ostial RCA disease, now s/p synergy stent x 2 placed. This morning she appears markedly improved. She is off bipap, on NC and able to talk. She denies any chest pain. Her right femoral access site is clean and dry with no bruising or hematoma. She is on a regimen of DAPT with ASA and plavix. Cardiac rehab consult in place. Sandy L Raman, DO Interventional Scientific Software Engineer * Darwin Connors MD - 04/22/2020 7:12 AM EDT Inpatient Cardiology Progress Note Hospital Day 3 days Active Hospital Problems Diagnosis ??? 79 yo F with DM and HTN--- txf from [facility] with cholecystitis, AF with RVR, hypoxia, and concern for severe . Cath showed not severe, high grade ostial RCA stented, AF converted spontaneously ??? Atrial fibrillation--- paroxysmal ??? Cholecystitis Resolved Hospital Problems No resolved problems to display. Active Hospital Problems Diagnosis ??? 79 yo F with DM and HTN--- txf from [facility] with cholecystitis, AF with RVR, hypoxia, and concern for severe . Cath showed not severe, high grade ostial RCA stented, AF converted spontaneously ??? Atrial fibrillation--- paroxysmal ??? Cholecystitis Resolved Hospital Problems No resolved problems to display. ID: Ms. Chaudhary is a 79F with a PMH of HTN, HLD, DM, possible history of AF who presented as a transfer from [facility] for acute cholecystitis with a course complicated by afib with RVR and hypotension now transferring to the Cardiology service due to severe (CORINE 0.8 at OSH) with consideration of direct intervention. 24 Hour Events/Subjective: - Cardiac cath yesterday with RCA stent - Patient sleepy this morning - Denies chest pain and shortness of breath - On 5L oxygen - CXR with pulmonary vascular congestion and R pleural effusion Inpatient Medications: Scheduled Meds: ??? AMIOdarone 200 mg Oral BID ??? losartan 50 mg Oral Daily ??? pantoprazole 40 mg Intravenous Daily ??? aspirin 81 mg Oral Daily ??? clopidogreL 75 mg Oral Daily ??? metoprolol tartrate 75 mg Oral Q6H BASIL ??? acetaminophen 1,000 mg Oral Q8H ??? polyethylene glycoL (MIRALAX) oral powder 17 g Oral Daily ??? senna-docusate 2 tablet Oral BID ??? rosuvastatin 10 mg Oral QPM ??? sodium chloride 0.9 % (flush) 5 mL Intravenous BID ??? heparin (Porcine) 5,000 Units Subcutaneous Q8H BASIL ??? piperacillin-tazobactam 3.375 g Intravenous Q8H ??? insulin lispro 1-4 Units Subcutaneous Q4H BASIL ??? insulin glargine 25 Units Subcutaneous Nightly Continuous Infusions: ??? nitroGLYcerin Stopped (04/22/20 0033) PRN Meds:.potassium chloride in water OR potassium chloride in water OR potassium chloride in water, ipratropium-albuteroL, labetalol, fentaNYL (PF), heparin (porcine), fentaNYL (PF), midazolam (PF), clopidogreL, nitroGLYcerin, iohexoL, midazolam (PF), atropine, fentaNYL (PF), bisacodyl EC,sodium chloride 0.9 % (flush), ondansetron OR ondansetron, HYDROmorphone, oxyCODONE, glucose 40% oral geL OR dextrose 10% OR glucagon (human recombinant) Vitals: Last value 24hr range T 37.3 ??C (99.1 ??F) Temp: [36.5 ??C (97.7 ??F)-37.3 ??C (99.1 ??F)] HR 68 Heart Rate: [63-79] BP 135/59 BP: (100-135)/(40-59) RR 25 Resp: [11-29] SpO2 96 % SpO2: [94 %-100 %] Last value Initial Value Wt 85.2 kg (187 lb 13.3 oz) 86.2 kg (190 lb) Height 152.4 cm (5') 152.4 cm (5') Ins/Outs: Intake/Output Summary (Last 24 hours) at 04/22/20204 Last data filed at 04/22/20201999 Gross per 24 hour Intake 130.5 ml Output 2290 ml Net -2159.5 ml Physical Exam: General: AOx3, no acute distress HENT: head normocephalic, atraumatic, no gross nasal drainage Mouth: moist oral mucosa Neck: soft, supple, without masses, trachea midline CV: difficult to appreciate heart sounds due to course lung sounds, extremities well-perfused, no peripheral edema Pulm: coarse lung sounds bilaterally, symmetric chest rise, nonlabored breathing, on 5L oxygen Abd: soft, nondistended, mild RUQ tenderness to palpation MSK: moves all extremities, equal strength bilaterally Skin: warm, dry, pink Neuro: no focal deficits Psych: appropriate mood and affect Labs: Recent Labs 04/22/20 1405 04/22/20 0350 04/21/20 0330 WBC 12.6* 13.5* 16.9* HGB 9.5* 8.6* 10.1* HCT 29.3* 26.8* 31.1* PLATELET 340 313 275 Recent Labs 04/22/20 0350 04/21/20 0330 04/20/20 0243 INR 1.2 1.2 1.4 Recent Labs 04/22/20 1745 04/22/20 0350 04/21/20 2200 04/21/20 0330 NA -- 139 138 138 K 3.4* 3.2* 3.6 3.7 CL -- 103 102 102 CO2 -- 24 24 21* BUN -- 34* 31* 39* CREATININE -- 1.10 1.00 1.31* Recent Labs 04/22/20 0350 04/21/20 0330 04/20/20 0243 AST 19 38* Not Perf 18 ALT 20 29 Not Perf 22 ALKPHOS 245* 257* Not Perf 139* BILITOT 0.6 1.0 Not Perf 1.5* BILIDIR -- -- 0.5* Recent Labs 04/22/20 0350 04/21/20 2200 04/21/20 0330 04/20/20 0243 CALCIUM 8.4* 8.5 8.6 8.3* MAGNESIUM 1.46* -- 1.09* 0.71 PHOS -- -- -- 3.6 Recent Labs 04/21/20 0445 04/20/20 2355 04/20/20 1735 TROPONINT 0.13* 0.12* 0.17* Recent Labs 04/22/20 0350 TSH 1.22 Recent Labs 04/22/20 0350 HA1C 8.5* Lab Results Component Value Date CHLPL 104 04/22/2020 HDL 17 04/22/2020 CHOLHDL 6.1 04/22/2020 TRIG 237 04/22/2020 LDLCHOL 40 04/22/2020 LDLDIRECT 73 02/28/2017 Imaging: SUMMARY: ?? 1. Mild concentric left ventricular hypertrophy is [...] by low stroke volume index (23 ml/m2). EKG: Post-cath EKG showed NSR with RBBB Assessment: Shannan Chaudhary is a 79 y.o. female with multiple cardiac risk factors in the form of HTN, HLD, and DM and now afib with RVR who presented to our service initialy as a preop consult and is now s/p stenting of her RCA, in the midst of active cholecystitis. She is stable post-catheterization, and is now planned for placement of a percutaneous cholecystostomy tube on 04/22 given her requirement forDAPT for at least 6 weeks with her new synergy stent -- she can likely be considered for a proper cholecystectomy after 6 weeks, when her DAPT can be paused for the procedure should it be needed. Thankfully her was found to not be as bad as suggested on her TTE, which obviates the need for a balloon valvuloplasty or valve replacement in the near future, though it may be required eventually. Will observe in the [facility] overnight, and will be kept NPO given her cholecystitis. ?? With regards to her hypoxic respiratory failure, the most likely explanation seems to be that when Ms. Chaudhary flipped into afib RVR, her EF dropped precipitously and led to significant pulmonary vascular congestion. Her CXR shows a right sided pleural effusion. Plan: #NSTEMI, s/p stenting of RCA osteal lesion #Pulmonary edema 2/2 afib-RVR #Afib-RVR, now in sinus - Starting amiodarone 200mg bid as she did not tolerate the afib - ASA 81mg qd - Plavix 75mg qd - Metoprolol tartrate 75mg Q6H - Starting losartan 50mg - Rosuvastatin 10mg QHS ?? #Acute cholecystitis - Plan on perc arron tube today with IR - Continue zosyn for 2 days following PCT, ensure resolution of leukocytosis - Follow-up with surgery in 6 weeks for evaluation of cholecystectomy #HF with elevated LVEDP #Pulmonary edema 2/2 afib RVR, now in sinus - Acute pulmonary edema due to acute systolic heart failure - Lasix 40 this morning - CXR this AM with persistent pulmonary vascular congestion and R sided pleural effusion - Strict I/O's - Daily Weights ?? #Diabetes - Goal glucose < 180 - q4 hour finger sticks - Sensitive SSI in place - Continue nightly glargine 25u ?? # Misc Diet: NPO diet (Give Meds) DVT ppx: SQH GI ppx: Protonix ?? Code Status:Attempt Cardiopulmonary Resuscitation - Inpatient ?? Dispo- continue current level of care Julianna Hendrix MD PGY-1 Team Pager [phone] Cardiology Attending Note I have seen and examined the patient on rounds with the team. The assessment and plan incorporates my input. Very fatigued and mildly uncomfortable in RUQ on exam this am. Will keep on our service. Perc choletube today by IR, several days of abx, amio for one month. Would treat with DOAC and clopidogrel and aspirin but drop aspirin in one month. Darwin Connors MD MS I certify that based on the above clinical information that inpatient services are medically necessary and I expect that this patient will remain in the hospital for at least two midnights for safe care. * Madelyn Kessler RT - 04/22/2020 3:58 AM EDT Respiratory Therapy NIV Note NIV Settings: NIV Mode: S/T IPAP (cmH20): 12 EPAP (cmH20): 6 FiO2 (%): 35 % NIV Measurements: Resp: 29 Mve: 16.5 Leak (L/min): 0 L/min Vte: 565 SpO2: 99 % Current Medications: , Nebulized Medications: Albuterol & Ipratroprium Skin Assessment: NIV Skin Assessment WDL: WDL Mepilex Applied: Yes Nares Assessment WDL: WDL Assessment: Pt compliant overnight with CPAP. Plan: Continue NIV RT Rohan * Justus Rodríguez MD - 04/22/2020 2:30 AM EDT Post Cath Note S: No chest pain, dyspnea, abdominal, groin, or back pain. Dressing clean and dry, no signs of infection, no bleeding from R femoral/groin access site. O: Vitals past 8 hours: Temp: [36.7 ??C (98.1 ??F)-36.8 ??C (98.2 ??F)] Heart Rate: [67-96] Resp: [18-27] BP: (100-141)/(40-67) SpO2: [91 %-96 %] Heart Rate from SpO2: [67 bpm-96 bpm] General: Lying in bed in NAD, sleepy but rouses to exam, BiPAP in place. Cardiac: Regular rate and rhythm, 4/6 crescendo-decrescendo systolic murmur appreciated Pulm: CTAB with no crackles appreciated anteriorly Abd: No flank or back tenderness. Groin: Right femoral access site without hematoma or ecchymoses. No bleeding or bruits. Ext: warm, sensation intact, 2+ PT pulses. A/P: s/p cath with benign appearing right femoral/groin access site. * Bjorn Leung - 04/21/2020 6:05 PM EDT Respiratory Therapy NIV Note NIV Settings: NIV Mode: S/T IPAP (cmH20): 14 EPAP (cmH20): 6 FiO2 (%): (S) 100 %(for biological lab technician procedure) NIV Measurements: Resp: 23 Mve: 24.8 Leak (L/min): 14 L/min Vte: 952 SpO2: 100 % Current Medications: Nebulized Medications: Albuterol & Ipratroprium QID PRN Skin Assessment: NIV Skin Assessment WDL: WDL Mepilex Applied: Yes Nares Assessment WDL: WDL Breath Sounds: Diminished/wheezes Assessment/Plan: Received pt this morning on 3L NC. ~ 1435, pt had increased SOB requiring higher amounts of oxygen (6L) while still desaturating. Assess pt for diminished breath sound and expiratorywheezes. Gave Duoneb 1x and started BiPAP 12/6 40%. Pt responded well to positive pressure and lasix -> clear breath sounds post NIV start. Weaned FiO2 to 35%. Brought pt to agricultural labor camp manager @ 1530 on NRB. Placed on BiPAP and adjusted to 14/6 100% for procedure. Trial BiPAP off pt and place on NC when able. Continue use of BiPAP PRN is SOB continues. Wean O2 requirements. Bjorn Leung RCP * Jos Garrison MD - 04/21/2020 4:13 PM EDT Critical Care Attending Daily Progress Note This patient was seen and examined on daily ICU rounds. Presentation: 79 yo female with acute cholecystitis and history of admitted to ICU secondary to hypotension around afib with RVR 24 Hour Events: TTE yesterday, decision to go to biological lab technician today with surgical plan pending outcome Assessment, Management, and Decision Making Pt seen and examined with the critical care team with my full assessment and plan by systems as follows: Neuro: tylenol for pain CV: TTE 04/20 EF 59%, severe (0.8cm2 area) and mild AI, mild MR Phenylephrine for SBP <90 Continue metoprolol at lower dose 12.5 mg q6h PULM: On RA GI: NPO for now, possible cholecystectomy vs cholecystostomy tube pending outcome of cath, if PCI with DAP therapy would favor cholecystostomy tube in IR : continue roque HEME: h/h stable ID: zosyn for cholecystitis ENDO: continue Lantus 25u daily T/L/D: PIV MSK: PT/OT Prophylaxis: DVT SQH, GI none indicated DISPO: ICU Physical Exam Last value Range last 24hrs Temperature Temp: 36.4 ??C (97.5 ??F) Temp: [36.4 ??C (97.5 ??F)-37.4 ??C (99.3 ??F)] Heart Rate Heart Rate: (P) 99 Heart Rate: [70-151] Blood Pressure BP: (!) (P) 193/95 BP: (114-226)/(41-161) Respiratory Rate Resp: (P) 23 Resp: [17-41] SpO2 SpO2: (P) 100 % SpO2: [87 %-100 %] BMI Body mass index is 36.68 kg/m??. 04/20 0701 - 04/21 0700 In: 1250.7 [P.O.:40; I.V.:1164.3] Out: 1165 [Urine:1165] General: awake and alert Lungs: clear Heart: irreg, rate controlled Abdomen: soft, tender in the RUQ Extremities: no edema Neuro: no focal deficits Recent Labs 04/21/20 0330 04/20/20 0325 04/20/20 0243 04/19/20 1604 WBC 16.9* 17.9* -- 17.0* HGB 10.1* 10.3* -- 11.2* HCT 31.1* 32.6* -- 34.8* PLATELET 275 217 -- 220 PT 14.4* -- 15.7* 16.9* INR 1.2 -- 1.4 1.5 Recent Labs 04/21/20 0330 04/20/20 0243 04/19/20 1604 NA 138 134* 135 K 3.7 3.9 4.1 CL 102 100 97* CO2 21* 20* 20* BUN 39* 30* 26* CREATININE 1.31* 1.26* 1.37* GLUCOSE 149 129 146 CALCIUM 8.6 8.3* 9.1 MAGNESIUM 1.09* 0.71 -- PHOS -- 3.6 -- No results for input(s): PHART, PO2ART, MBB4APN, LACTATEART, BEART in the last 72 hours. Gege Garrison MD * Jos Garrison MD - 04/20/2020 12:51 PM EDT Critical Care Attending Daily Progress Note This patient was seen and examined on daily ICU rounds. Presentation: 79 yo female with acute cholecystitis and history of admitted to ICU secondary to hypotension around afib with RVR 24 Hour Events: Admitted to SICU Assessment, Management, and Decision Making Pt seen and examined with the critical care team with my full assessment and plan by systems as follows: Neuro: tylenol for pain CV: TTE 04/20 EF 59%, severe (0.8cm2 area) and mild AI, mild MR Phenylephrine for SBP <90 Continue metoprolol at lower dose 12.5 mg q6h PULM: On RA GI: NPO for now, possible cholecystectomy pending risk stratification by Cardiology, would likely be moderate to high risk but alternative would be cholecystostomy tube without ability to improve herunderlying factor driving her perioperative risk (severe ) prior to surgical intervention : urinary retention and will place roque HEME: h/h stable ID: zosyn for cholecystitis ENDO: continue Lantus 25u daily T/L/D: PIV MSK: PT/OT Prophylaxis: DVT SQH, GI none indicated DISPO: ICU Physical Exam Last value Range last 24hrs Temperature Temp: 37.3 ??C (99.1 ??F) Temp: [36.5 ??C (97.7 ??F)-37.3 ??C (99.1 ??F)] Heart Rate Heart Rate: 83 Heart Rate: [74-172] Blood Pressure BP: 114/71 BP: (69-158)/(25-87) Respiratory Rate Resp: 19 Resp: [17-33] SpO2 SpO2: 95 % SpO2: [90 %-95 %] BMI Body mass index is 37.11 kg/m??. 04/19 07 - 04/20 07 In: 295 [I.V.:295] Out: 250 [Urine:250] General: awake and alert Lungs: clear Heart: irreg, rate controlled Abdomen: soft, tender in the RUQ Extremities: no edema Neuro: no focal deficits Recent Labs 04/20/20 0325 04/20/20 0243 04/19/20 1604 WBC 17.9* -- 17.0* HGB 10.3* -- 11.2* HCT 32.6* -- 34.8* PLATELET 217 -- 220 PT -- 15.7* 16.9* INR -- 1.4 1.5 Recent Labs 04/20/20 0243 04/19/20 1604 NA 134* 135 K 3.9 4.1 CL 100 97* CO2 20* 20* BUN 30* 26* CREATININE 1.26* 1.37* GLUCOSE 129 146 CALCIUM 8.3* 9.1 MAGNESIUM 0.71 -- PHOS 3.6 -- No results for input(s): PHART, PO2ART, KGS4MFU, LACTATEART, BEART in the last 72 hours. Is this patient critically ill? Is there a high potential of sudden, clinically significant, or life threatening deterioration? Yes Is there a need for direct personal assessment and management to treat/prevent multiple vital organfailure/deterioration? Yes Patient is critically ill with these diagnoses being managed by the Critical Care Team: Arrhythmia Atrial fibrillation Chronic and Paroxysmal Hypotension Arterial and Drug Induced I personally performed 32 minutes of aggregate critical care time exclusive of procedures and teaching, between the hours of 0700 and 1700 on the date of this note. This includes time spent during direct patient evaluation and reassessment, interpreting diagnostic tests, directing life and/or organ supporting interventions and documentation on the unit. Gege Garrison MD * Zehra Mcnamara RN - 04/20/2020 12:30 PM EDT 12:01 Pt had an episode of SVT (HR161 per monitor). Pt asymptomatic of episode and denies feeling like heart was racing. Pt was lying in bed talking on phone during episode. Vitals remained stable per doc flow. Cardiology consulting on patient and on unit during episode. R1 team paged and at bedside to evaluate patient. Pt had subsequent episodes which she was again asymptomatic. One time dose ofmetoprolol ordered to be given now and administered per MAR and frequency of metoprolol dosing increased per order. Will continue to monitor. Please see MAR and doc flow for additional information. * Zehra Mcnamara RN - 04/20/2020 9:33 AM EDT 04/20/20 0901 Vital Signs Heart Rate from SpO2 90 bpm Heart Rate 87 Heart Rate Source Monitor Cardiac Rhythm NSR Ectopy Premature junctional contraction(s) BP (!) 72/55 (surgery team at bedside; arden restarted and order placed ) MAP (NBP) 58 mmHg BP Method Automatic BP Location (NBP) Right arm Patient Position Lying Resp 26 SpO2 94 % Oxygen Therapy O2 Device NC O2 Flow Rate (L/min) 2 L/min 09:01 BP was low as above; Surgical team at bedside evaluating patient. Phenylephrine restarted perMAR and order written by surgical team. Red ICU team updated by surgical team. Pt responded well tophenylephrine dose and BP documented in doc flow. Pt denies any chest pain, dizziness or lightheadedness during low BP. Please see MAR and doc flow for additional information. * Neri Shaver MD - 04/20/2020 8:00 AM EDT Acute Care Surgery ICU Progress Note ID: Shannan Chaudhary is a 79 y.o. female with PMH IDDM and reported aortic stenosis with valve area 0.8 (records unavailable in [facility] but reviewed by [facility] referring MD) who is admitted in transfer with cholecystitis. She reports that she vaguely recalls a previous echo and need for cardiology follow-up within the past year, but then she broke her leg and was then further delayed in her presentation due to COVID-19. She was due for a stress test recently but did not make the visit due to her admission for cholecystitis. Operations this Admission: - None Subjective/24 hour events: - Transferred to ICU - AVF w/ RVR - Requiring Arden for BP support Physical Exam: Last value Range last 24 hrs Temperature Temp: 37 ??C (98.6 ??F) Temp: [36.5 ??C (97.7 ??F)-37.4 ??C (99.3 ??F)] Heart Rate Heart Rate: 75 Heart Rate: [71-113] Blood Pressure BP: 144/70 BP: (72-189)/(40-161) BP (Arterial Line): -- Respiratory Rate Resp: 21 Resp: [17-41] SpO2 SpO2: 94 % SpO2: [91 %-97 %] Physical Exam: General: NAD, resting comfortably, pleasant, conversant Neuro: grossly intact, nonfocal, moving all four extremities spontaneously HEENT: NCAT, anicteric sclera CVS: irregularly irregular Pulm: non-labored breathing Abd: soft, TTP kiran in RUQ although less than day prior. Mildly distended Skin: warm, dry Intake/Output Summary (Last 24 hours) at 04/21/2020 0543 Last data filed at 04/21/2020 0400 Gross per 24 hour Intake 1230.7 ml Output 1065 ml Net 165.7 ml Labs: Recent Labs 04/21/20 0330 04/20/20 0325 04/19/20 1604 WBC 16.9* 17.9* 17.0* HGB 10.1* 10.3* 11.2* HCT 31.1* 32.6* 34.8* PLATELET 275 217 220 Recent Labs 04/21/20 0330 04/20/20 0243 04/19/20 1604 NA 138 134* 135 K 3.7 3.9 4.1 CL 102 100 97* CO2 21* 20* 20* BUN 39* 30* 26* CREATININE 1.31* 1.26* 1.37* GLUCOSE 149 129 146 Recent Labs 04/21/20 0330 04/20/20 0243 PT 14.4* 15.7* INR 1.2 1.4 Assessment/Plan: 79y F w/ severe (valve area 0.8) transferred to [facility] with acute cholecystitis undergoing cardiacwork-up/optimization for potential cholecystectomy. Neurologic: tylenol, dilaudid prn, oxy prn Cardiovascular: Follow-up cards work-up recs. Continue rate control w/ metop, Arden as needed to maintain MAPs. Consider amio if AF refractory. Statin Pulmonary: duonebs prn Gastrointestinal: NPO, miralax, senna Renal, Fluid Balance, and Electrolytes Heme/ID: SQH 5k q8, continue zosyn Endocrine:IDDM on ISS Neri Shaver MD General Surgery 04/21/2020 Associated attestation - Hong Rosenthal MD - 04/22/2020 8:29 AM EDT This patient was personally seen and examined on team rounds. I agree with the assessment and plan as discussed. Diagnoses and therapy were explained and all questions were answered. Discussed with Dr Garrison/[facility] Cardiology input/assistance greatly appreciated Hong Rosenthal MD 04/22/2020 8:29 AM * Roxy Cordon RN - 04/20/2020 7:13 AM EDT Patient c/o increased chest pain around 0215. Patient also noted to be in a new irregular rhythm and very tachycardic into 180s. Team paged. EKG, trops, CBC, CMP, ordered. See results for details. Cardiology consulted and paged due to significant cardiac history. See MAR for medications given. Team at bedside from 0220 through transfer to [facility]. Life safety paged for assistance when BP began to decline rapidly. See life safety note for details. Critical care also at beside. Roxy Cordon RN * Sophia Ellington RN - 04/20/2020 6:58 AM EDT Patient transferred from by [facility]. HR afib 160s, arden running @ 50. CCS at bedside performing bedside echo, around 0600 pt. Self converted into NSR 80- 90s and arden weaned off. * Tiesha Morgan MD - 04/20/2020 5:07 AM EDT Patient with aortic stenosis with valve area 0.8 (no echo result documented) and acute cholecystitis, transferred to [facility] on 04/19 PM. Plan was cardiology pre-op eval prior to surgery. However, was not seen by cardiology today. Around 3AM, patient became tachycardic up to 150s. EKG showed afib with RVR with HR 168, cain contrast to EKG on admission which showed NSR. Also endorsing left sided pressure-like chest pain, nauseated, diaphoretic, unclear mental status change (forgetful but no baseline). BP initially 115/68. Troponin neg. 2g Mg given. Upon talking to patient, pt reports she has a history of afib dx 1 year agobut not on any meds for it. 3009 and 3999 at bedside for eval. Discussed with car detailer, who recommended PO metop tartrate 25 mg once now, and if no improvement, to give another PO metop dose. PO metop tartrate 25 mg given at 3:30AM. Pt continued to be in afib with RVR with HR 160s-180s. SBP in 80s-90s. Gave IV metop 2.5 mg at 4:30 AM. Critical care fellow at bedside for eval. The plan isto transfer to ICU for possible amiodarone vs aggressive rate control. * Sandy Riddle RN - 04/19/2020 1:45 PM EDT Patient arrived from [facility] via ambulance. Received report from Rhina. Pt alert and oriented x4. Pt reports pain 6 /10. Pt denies any chest pain, shortness of breath, dizziness or nausea. Refer to docflow sheets for full assessment. . Patient oriented to room with call aguilar within reach. Masimo on.Will continue to monitor. documented in this encounter H&P Notes * Mauro Patel MD - 05/03/2020 10:35 AM EDT Gastroenterology and Hepatology Pre-Procedure History and Physical Exam Procedure: EGD: Indication: melena Patient Active Problem List Diagnosis Code ??? Actinic keratosis L57.0 ??? Seborrheic keratosis L82.1 ??? Type 2 diabetes mellitus E11.59 ??? Hypertension I10 ??? Hyperlipidemia E78.5 ??? Arthritis M19.90 ??? Cholecystitis K81.9 ??? Atrial fibrillation--- paroxysmal I48.91 ??? 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 Aortic stenosis - moderate I35.0 EXAM: HEENT: Airway examined, oropharynx clear Mallampati Score: II (soft palate, uvula, fauces visible) LUNGS: Clear to auscultation HEART: Regular rate and rhythm, normal S1, S2 ABDOMEN: Normal bowel sounds, soft, non tender, non distended A/P Proceed with the planned endoscopic procedure. ASA per anesthesia Sedation Plan: anesthesia Risks and benefits of the procedure explained to the patient. Consent signed. Please see separate consult note for further details. * Wilner Esparza MD - 04/28/2020 1:58 PM EDT Images from the original note were not included. [facility] Medicine - Admission History & Physical - RED Team, Pager [phone] Chief Complaint: liver abscess History of Present Illness: Shannan Chaudhary is a 79 y.o. female with history of IDDM last A1c 8.5(03/2020), HTN, HLD, moderate-severe who presents with cholecystitis. The patient first began to have a feeling of pain in her right upper quadrant on 04/12, and presented to [facility] ED on 04/18 and found to have a TBili of 2.2 and WBC of 17; alk phos 148, AST/ALT unremarkable, Cr 1.37. Pt CTAP from [facility] revealed a hydropic gallbladder with thickening and a layering cholelithiasis, as well as pericholecystic fat stranding with nondilated bile ducts. The pt was admitted to the acute care surgery service on 04/19 and placed on pip-tazo; the patient was noted to be spontaneously in afib with rvr and hemodynamically unstable, with a troponin leak; the pt was controlled on metoprolol (IV and PO) and phenylephrine and transferred to SICU in NSR and HDS before starting amiodarone on 04/22. Of note pt has had no previous hx of afib; home meds include numerous diabetes oral agents as well as insulin, rosuvastatin, and losartan 100mg. The pt was seen by cards on 04/[address] Rahman for and underwent a diagnostic L+R cath forvalve replacement eval. Cardiac cath on 04/21 revealed 2 vessel disease (LAD, RCA) and 2 ISIAH stentswere placed in RCA. DAPT is recommended for 6-12 months, and the pt is able to stop in 6 weeks if pursuing surgery for cholecystectomy. On cath, her AV gradient is 22, and no balloon valvuloplasty was pursued; pt was incidentally noted to be hypertensive post- procedure and was started on a nitro drip and transferred to CV. On hosp day 3, 04/22, a CXR showed R-sided pleural effusion; IR completed a perq arron with purulent output from drainage, and continued on pip-tazo. The plan for surgical intervention is for cholecystectomy in 6 weeks. On 04/24 HOD5, the pt was found to be in acute hypoxic respiratory failure in setting of afib with rvr and with an uptrending leukocytosis and remained on amiodarone and metoprolol. Her respiratory improved with diuresis, but with an uptrending leukocytosis repeat imaging was obtained. On 04/27, a new fluid collection was noted between the liver and the diaphragm, showing a R-sided subpulmonic effusion with some free fluid in the pelvis. On 04/28, IR drainage was pursued with a SIS drain in place. The pt was restarted on pip-tazo [ throughout this pt had been on pip-tazo (04-19 through , missed 04/27, then restarted 04/28- ) ]. The percutaneous cholecystic fluid grew klebiella french-sensitive on 04/22; pending cultures from 04/28 CT drainage of liver abscess. Current medications amiodarone 200mg BID (goal for 1 month), metop 300 qday, losartan 100mg qday, rosuvastatin 20 qday, amlo 10 (new dose), and started on BID 5mg apixaban. 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 Pt previously had been fully functional and independently at baseline. Today pt with two tubes does not feel like they are bothering her; she does report some night sweats for the past few nights, but without lightheadedness or orthostasis. Reports no fevers, dyspnea, or chest pain or pressure. She has had no pleurisy and her pain has been reasonably well-controlled on oxycodone 5mg q4h PRN. Pt has no constipation or diarrhea but does report some soft BMs. -- 04/22 RUQ pigtail 04/28 drain of liver abscess by IR Review of Systems: GENERAL HEENT COR PULM All negative All negative All negative All negative Weight loss Headache - Chest Pain Non-productive cough Weight gain Vision change - Palpitations Productive cough - Fevers Sinus congestion Orthopnea - Wheezing - Chills Hoarseness Leg edema Hemoptysis + Night sweats Epistaxis Paroxysmal nocturnal dyspnea Pleuritic pain Fatigue Syncope - SOB Claudication PAUL MSK RENAL ENDO GI All negative All negative All negative All negative Arthralgias Frequency Heat intolerance Blood in stool Myalgias Urgency Cold intolerance Dysphagia - Weakness Hematuria Polydipsia Odynophagia Stiffness Flank pain Polyphagia + Abdominal discomfort Dysuria Cushingoid - Constipation Foamy urine - Diarrhea Discharge Nausea/Vomiting LYMPH SKIN NEURO PSYCH All negative All negative All negative All negative Swollen nodes - Rash Seizures Depressed affect Tender nodes Ulcers Tremors Occupational stress Diffuse nodes Bruising Spasticity Anxiety Local nodes Tanned skin - Focal weakness Insomnia Night sweats Telangiectasias Diplopia Paresthesias Dizziness Past Medical/Surgical History: Past Medical History: Diagnosis Date ??? Diabetes ??? Severe aortic stenosis Medications: No current facility-administered medications on file prior to encounter. Current Outpatient Medications on File Prior to Encounter Medication Sig Dispense Refill ??? minocycline (MINOCIN;DYNACIN) 100 mg Capsule Take one capsule by mouth just before bedtime for 1 week. Then 1 capsule by mouth twice daily. 60 capsule 1 ??? VITAMIN D 1,000 unit Capsule take 1 capsule by mouth daily 0 ??? VICTOZA 2-ISABEL 0.6 mg/0.1 mL (18 mg/3 mL) Pen Injector inject 1.2 milligram subcutaneously daily0 ??? losartan (COZAAR) 100 mg Tablet take 1 tablet by mouth once daily 0 ??? VITAMINS B COMPLEX Tablet [...] mL 2 ??? blood sugar diagnostic strips ([employer]CH ULTRA TEST) Strip 1 each by Other [...] times daily. 10.65 400 each 3 ??? rosuvastatin (CRESTOR) 10 mg Tablet take 1 tablet by mouth NIGHTLY 90 tablet 0 ??? Blood-Glucose Meter [facility] One Touch Ultra Brand, 250.02. 1 each 0 ??? Lancets Misc Use twice daily or as needed. 200 each 3 Allergies: No Known Allergies Social History: Social History Socioeconomic History ??? Marital status: Spouse name: None ??? Number of children: None ??? Years of education: None ??? Highest education level: None Occupational History ??? None Social Needs ??? Financial resource strain: None ??? Food insecurity Worry: None Inability: None ??? Transportation needs Medical: None Non-medical: None Tobacco Use ??? Smoking status: Never Smoker ??? Smokeless tobacco: Never Used Substance and Sexual Activity ??? Alcohol use: Yes Comment: occassional ??? Drug use: Never ??? Sexual activity: Not Currently Lifestyle ??? Physical activity Days per week: None Minutes per session: None ??? Stress: None Relationships ??? Social connections Talks on phone: None Gets together: None Attends taoism service: None Active member of club or organization: None Attends meetings of clubs or organizations: None Relationship status: None ??? Intimate partner violence Fear of current or ex partner: None Emotionally abused: None Physically abused: None Forced sexual activity: None Other Topics Concern ??? None Social History Narrative ??? None Family History: No family history on file. Physical Exam: Most Recent Range (last 24) Temperature Temp: 35.3 ??C (95.5 ??F) Temp: [35.3 ??C (95.5 ??F)-37.3 ??C (99.1 ??F)] Heart Rate Heart Rate: 54 Heart Rate: [53-66] Blood Pressure BP: 116/63 BP: (90-165)/(25-107) Respiratory Rate Resp: 16 Resp: [12-29] SpO2 SpO2: 96 % SpO2: [92 %-99 %] Gen: AOx3, NAD on RA. Eyes: sclera clear, anicteric. ENT: neck supple. CV: borderline bradycardic, regular rhythm, nl s1/s2 with crescendo-decrescendo systolic murmur III/ in RUSB. Respiratory: mild bibasilar crackles b/l, no wheezes or rhonchi. Good inspiratory effort. GI: RUQ with well-dressed wound sites, mildly tender in RUQ. Soft, nt/nd diffusely. Skin: warm, well-perfused without lesions, rashes, or petechiae. Neuro: grossly nonfocal, spontaneously moves all extremities. Musculoskeletal: no joint swelling or pain Ext: no LE edema, skin changes consistent with diuresis Laboratory: Recent Results (from the past 24 hour(s)) POCT Glucose Result Value Ref Range POC Glucose 155 65 - 199 mg/dL POCT Glucose Result Value Ref Range POC Glucose 274 (H) 65 - 199 mg/dL POCT Glucose Result Value Ref Range POC Glucose 205 (H) 65 - 199 mg/dL POCT Glucose Result Value Ref Range POC Glucose 161 65 - 199 mg/dL Comprehensive metabolic panel (non-fasting) Result Value Ref Range Glucose Lvl 149 65 - 199 mg/dL BUN 16 8 - 18 mg/dL Creatinine 0.80 0.70 - 1.20 mg/dL Sodium 137 135 - 145 mmol/L Potassium 3.5 3.5 - 5.0 mmol/L Chloride 105 98 - 107 mmol/L CO2 21 (L) 22 - 31 mmol/L Anion Gap 11 5 - 15 mmol/L Calcium 8.7 8.5 - 10.5 mg/dL Total Protein 6.3 6.1 - 8.0 gm/dL Albumin 3.0 (L) 3.2 - 5.2 gm/dL AST 12 0 - 30 unit/L ALT 12 0 - 30 unit/L Alk Phos 201 (H) 35 - 105 unit/L Total Bilirubin 0.4 0.2 - 1.3 mg/dL eGFR 70 >=60 mL/min/1.73 m?? eGFR 81 >=60 mL/min/1.73 m?? Magnesium Result Value Ref Range Magnesium 0.78 0.69 - 1.07 mmol/L Hemogram Result Value Ref Range WBC 14.8 (H) 4.0 - 9.5 x10(3)/mcL RBC 3.90 (L) 4.00 - 5.21 x10(6)/mcL Hemoglobin 10.5 (L) 11.7 - 15.5 gm/dL Hematocrit 32.5 (L) 35.7 - 45.8 % MCV 83.3 82.6 - 94.4 fL MCH 26.9 (L) 27.1 - 32.0 pg MCHC 32.3 31.7 - 35.0 gm/dL Platelets 421 (H) 145 - 357 x10(3)/mcL RDWSD 44.7 37.0 - 46.0 fL RDWCV 14.6 (H) 11.5 - 14.1 % MPV 9.6 7.6 - 12.9 fL nRBC % Auto 0.0 % nRBC Abs Auto 0.000 0.000 - 0.000 x10(3)/mcL Differential, Automated Result Value Ref Range Neutrophils % 71.3 % Neutr Abs (ANC) 10.55 (H) 1.70 - 6.10 x10(3)/mcL Lymphocytes % 17.3 % Lymphocytes Abs 2.6 0.9 - 3.2 x10(3)/mcL Monocytes % 5.5 % Monocyte Abs 0.8 0.3 - 0.9 x10(3)/mcL Eosinophils % 2.8 % Eosinophils Abs 0.4 0.0 - 0.4 x10(3)/mcL Basophils % 0.5 % Basophils Abs 0.1 0.0 - 0.1 x10(3)/mcL Immature Gran % 2.60 % Nanci Gran Abs 0.39 (H) 0.00 - 0.04 x10(3)/mcL pro-Brain Natriuretic Peptide Result Value Ref Range ProBNP 852 (H) <=450 pg/mL POCT Glucose Result Value Ref Range POC Glucose 134 65 - 199 mg/dL Body Fluid Culture, Aerobic Specimen: Fluid ARABELLA-HEPATIC ABSCESSS, CT GUIDED DRAIN PLACEMENT Result Value Ref Range Gram Stain Few Neutrophils seen No microorganisms seen. POCT Glucose Result Value Ref Range POC Glucose 150 65 - 199 mg/dL POCT Glucose Result Value Ref Range POC Glucose 135 65 - 199 mg/dL Microbiology: Microbiology Results (Last 30 days) Procedure Component Value Units Date/Time Body Fluid Culture, Aerobic & Anaerobic Fluid [[id number]] Collected: 04/28/20 1000 Lab Status: In process Specimen: Fluid Updated: 04/28/20 1124 Body Fluid Culture, Aerobic [[id number]] Collected: 04/28/20 1000 Lab Status: Preliminary result Specimen: Fluid Updated: 04/28/20 1124 Gram Stain -- Few Neutrophils seen No microorganisms seen. Body Fluid Culture, Aerobic & Anaerobic Bile [[id number]] (Abnormal) Collected: 04/22/20 1550 Lab Status: Final result Specimen: Bile Updated: 04/26/20 1544 Body Fluid Culture, Aerobic [[id number]] (Abnormal) (Susceptibility) Collected: 04/22/20 1550 Lab Status: Final result Specimen: Bile Updated: 04/26/20 1358 Body Fluid Culture Many Raoultella ornithinolytica (Klebsiella ornithinolytica) Gram Stain -- Few Neutrophils seen Rare Gram Negative Rods seen Susceptibility Raoultella ornithinolytica (klebsiella ornithinolytica) VITEK 2 METHOD Amikacin Sensitive Ampicillin + Sulbactam Sensitive Aztreonam Sensitive Ceftazidime Sensitive Ceftriaxone Sensitive Ertapenem Sensitive Gentamicin Sensitive Levofloxacin Sensitive [1] Meropenem Sensitive Piperacillin/Tazobactam Sensitive Tetracycline Sensitive Tigecycline Sensitive Tobramycin Sensitive Trimethoprim/Sulfa Sensitive [1] Levofloxacin and Ciprofloxacin may not adequately treat infections in critically ill patients even when isolates test susceptible in the laboratory. Contact Infectious Disease before using in critically ill patients. Anaerobic Culture [[id number]] Collected: 04/22/20 1550 Lab Status: Final result Specimen: Bile Updated: 04/26/20 1544 Anaerobic Culture No anaerobic organisms isolated Imaging and Diagnostics: 04/27 CTAP IMPRESSION An abscess 1. There is a new fluid collection between the liver and diaphragm as noted above this is consistent with some diaphragmatic abscess. There is a right-sided subpulmonic effusion as well. 2. Small left effusion. 3. 9 mm homogeneous hypodensity in the spleen with Hounsfield units of 10. These are benign imaging features and no follow-up is required per ACR incidental findings committee White paper of 2013. 4. Free fluid in the abdomen and pelvis, greatest in the pelvis. ?? Assessment/Plan: Shannan Chaudhary is a 79 y.o. female with history of with history of IDDM last A1c 8.5 (03/2020), HTN, HLD, moderate-severe who presents with cholecystitis, now s/p percutaneous cholecystostomy and percutaneous liver abscess SIS drain placement. The patient is now hemodynamically stable and admitted to medicine for management of her infections; source control has been achieved with drainage of her inflamed gallbladder and her hepatic abscess, and likely given the acuity of the presentation and formation of her subdiaphragmatic hepatic abscess, the etiology likely formation is post-procedural seeding of her klebsiella infection in her gallbladder (the risks of which increase with diabetes); aerobic and anaerobic cultures are pending. ddx technically includes amoebic abscess. Pt afib now both rate and rhythm controlled, and started on amiodarone 200mg BID 04/22 and will continue for 1 month, and without clinical evidence of heart failure. # liver abscess (perhaps partially treated) vs infected fluid collection, s/p SIS drain (04/28) # acute cholecystitis, s/p perq cholecystostomy (04/22) - liver s/p SIS 04/28 - gallbladder s/p perq 04/22 - arron tube growing klebsiella - cholecystectomy in 6 weeks - will c/w pip-tazo for gm- and anaerobic meds, ? of partially treated abscess vs new fluid collection - consult ID tomorrow AM - pip-tazo from 04/19-04/26, 04/28- ; - monitor daily CBC, BMP, LFTs - f/u cultures # afib rvr, rate and rhythm controlled now in sinus # cardiogenic shock, resolved # pulmonary edema / afib-rvr, resolving # HTN # hypokalemia - resume apixaban - c/w amiodarone 200mg BID - c/w metoprolol 300mg qday - monitor vitals as above - DAPT as above - strict I/O's - daily weights # , moderate-severe # 2v CAD, s/p RCA stents on 04/21 # NSTEMI, likely type II - demand - DAPT with understanding pt is now on triple AC - metoprolol as above - losartan 100mg - rosuvastatin 20mg qhs - hold amlo in BP - holding PO lasix, chelsy given EF 59% - no surgical intervention at this point - pt remains largely asymptomatic - trops plateaud # Chronic Medical Conditions: # IDDM, A1c 8.5 - glargine 25 qhs - meal-associated insulin # Routine Diet: Daily Healthy Menu Choices/Cardiac diet ([facility]-Diet) CHO cont DVT prophylaxis: apixaban Fluids: PO Access: PIV Dispo: transfer to [id number] Code: Attempt Cardiopulmonary Resuscitation - Inpatient Wilner Esparza MD PGY-1, Internal Medicine 04/28/2020 Red Team Pager - #[phone] Associated attestation - Dale Gonzáles MD - 04/28/2020 5:32 PM EDT Attending Attestation Please see Vilma's note for details of the patient history of presentation and data. I have discussed, reviewed and agree with the documented History, Physical findings, Assessment and Plan of care. I have examined the patient myself and personally reviewed all studies. In addition, I certify thatI am a [facility] credentialed attending provider with admitting privileges and that the patient meets or has met medical necessity to require an inpatient IPI level of care meeting a minimum of two midnights or is on the [facility] inpatient only procedure list (status C) due to: further IV antibiotics and workup of liver abscess/fluid collection 79-year-old female who presents with active cholecystitis and also status post stenting of her RCA.She is now status post percutaneous cholecystostomy tube placement on 04/22. She will need cholecystectomy in 6 weeks. Patient has persistent leukocytosis and repeat imaging showed new hepatic abscess versus fluid collection. She is now status post drainage with IR. Culture from first drainage shows Klebsiella ornithinolytica. There remains some concern that this represents a partially treated hepatic abscess. Willlikely involve ID tomorrow. Next, patient has seemingly new onset A. fib with addition of DOAC during this admission. She also needs dual antiplatelet therapy with recent stent placement. Cardiology would like to continue triple therapy for at least 1 more week, then drop to DOAC/Plavix until surgery. Ideally, aspirin would be on periprocedurally. Moreover, she will need outpatient Cardiology consultation prior to surgery. After surgery, she should be on DOAC + Plavix when hemostasis has been achieved. Will touch base with Surgery about this plan as well tomorrow. * Jos Collins, DO - 04/28/2020 9:24 AM EDT INTERVENTIONAL RADIOLOGY FOCUSED H&P: Procedure: Planned procedure: Arabella-Hepatic Drainage Catheter Placement The patient's history and physical exam have been reviewed and completed. There has been no interval change from that of the pre-operative history and physical exam done within the last 30 days. Physical Exam: Cardiovascular: Regular, Normal Pulmonary: Breath sounds clear to auscultation The planned procedure (and sedation plan if appropriate) , its benefits and risks, and alternativeswere discussed with the patient. The patient consented to the procedure. PRE-SEDATION ASSESSMENT: Sedation Plan: moderate (conscious sedation) ASA: 3: Patient with severe systemic disease Mallampati: II: tonsillar pillars are blocked by the tongue Confirm NPO status: Yes History of anesthetic complications: No Current medications reviewed: Yes Allergies reviewed: Yes Source Note - Jos Collins DO - 04/28/2020 7:50 AM EDT Images from the original note were not included. INTERVENTIONAL RADIOLOGY FOCUSED H&P and PRE-PROCEDURE NOTE: PCP: Reshma Baig MD Referring Provider: Bethany Ireland Planned Procedure: Planned procedure: Arabella-Hepatic Drainage Catheter Placement Procedure Indication: Arabella-hepatic abscess. Sepsis. Order Questions Answers Is the patient on anticoagulant / anitplatelet therapy ? Aspirin,Clopidogrel Reason for exam and clinical history: Arabella-hepatic abscesss Clinical information / sanchez questions: Is this abscess amenable to drainage. Requested Date 04/28/20 Requested Time 8:00 AM Presenting Diagnosis/ Complaint: Shannan Chaudhary is a 79 y.o. female transferred to [facility] for acute cholecystitis and subsequently found to have severe on preoperative evaluation as well as episodes of afib with RVR during admission. A cardiac catheterization was performed which showed 2 vesselCAD and is s/p coronary artery stenting requiring clopidogrel and aspirin which need to be continued for a least 6 weeks. She was subsequently diagnoses with acute cholecystitis for which a cholecystostomy catheter was placed on 04/22. The patient initially improved but then developed worsening sepsis with leukocytosis. CT was repeated which revealed a arabella-hepatic abscess. IR is consulted for percutaneous drainage of the arabella-hepatic abscess. Past Medical/Surgical History: Patient Active Problem List [...] Past Surgical History: Procedure Laterality Date ??? HYSTERECTOMY, VAGINAL ??? IR CHOLECYSTOSTOMY TUBE PLACEMENT 04/22/2020 IR Cholecystostomy Tube Placement 04/22/2020 Jos Collins, DO [facility] INTERVENTIONL RAD Medications: No current facility-administered medications on file prior to encounter. Current Outpatient Medications on File Prior to Encounter Medication Sig Dispense Refill ??? minocycline (MINOCIN;DYNACIN) 100 mg Capsule Take one capsule by mouth just before bedtime for 1 week. Then 1 capsule by mouth twice daily. 60 capsule 1 ??? VITAMIN D 1,000 unit Capsule take 1 capsule by mouth daily 0 ??? VICTOZA 2-ISABEL 0.6 mg/0.1 mL (18 mg/3 mL) Pen Injector inject 1.2 milligram subcutaneously daily0 ??? losartan (COZAAR) 100 mg Tablet take 1 tablet by mouth once daily 0 ??? VITAMINS B COMPLEX Tablet [...] times daily. 10.65 400 each 3 ??? rosuvastatin (CRESTOR) 10 mg Tablet take 1 tablet by mouth NIGHTLY 90 tablet 0 ??? Blood-Glucose Meter Misc One Touch Ultra Brand, 250.02. 1 each 0 ??? Lancets Misc Use twice daily or as needed. 200 each 3 Allergies: Patient has no known allergies. Social [...] file Gets together: Not on file Attends taoism service: Not on file Active member of [...] Labs: Lab Results Component Value Date WBC 14.8 (H) 04/28/2020 HCT 32.5 (L) 04/28/2020 PLATELET 421 (H) 04/28/2020 INR 1.3 04/23/2020 BUN 16 04/28/2020 CREATININE 0.80 04/28/2020 ALKPHOS 201 (H) 04/28/2020 AST 12 04/28/2020 ALBUMIN 3.0 (L) 04/28/2020 BILIDIR 0.5 (H) 04/20/2020 BILITOT 0.4 04/28/2020 ALT 12 04/28/2020 PROT 6.3 04/28/2020 K 3.5 04/28/2020 Imaging: CT of the Abdomen & Pelvis - 04/27/20 Physical Exam: Pending (to be performed in angio the day of procedure) ASA: Pending (to be assessed in angio the day of procedure) Mallampati Class: Pending (to be assessed in angio the day of procedure) Assessment: 79 y.o. female transferred to [facility] for acute cholecystitis and subsequently found to have severe on preoperative evaluation as well as episodes of afib with RVR during admission. A cardiac catheterization was performed which showed 2 vessel CAD and is s/p coronary artery stenting requ iring clopidogrel and aspirin which need to be continued for a least 6 weeks. She was subsequently diagnoses with acute cholecystitis for which a cholecystostomy catheter was placed on 04/22. The patient initially improved but then developed worsening sepsis with leukocytosis. CT was repeated which r evealed a arabella-hepatic abscess. IR is consulted for percutaneous drainage of the arabella-hepatic abscess. Plan: Plan Planned procedure: Arabella-Hepatic Drainage Catheter Placement Labs to be performed day of procedure: No labs Sedation: Moderate (Conscious sedation) Prophylactic antibiotic : None Contrast: No contrast Additional medications for procedure: Lidocaine Medications to discontinue (and days held): None Planned access site: RUQ Position: Supine Cytopathology presence needed: No Consent: Pending 04/28/2020 * Jos Collins DO - 04/28/2020 7:50 AM EDT Images from the original note were not included. INTERVENTIONAL RADIOLOGY FOCUSED H&P and PRE-PROCEDURE NOTE: PCP: Reshma Baig MD Referring Provider: Bethany Ireland Planned Procedure: Planned procedure: Arabella-Hepatic Drainage Catheter Placement Procedure Indication: Arabella-hepatic abscess. Sepsis. Order Questions Answers Is the patient on anticoagulant / anitplatelet therapy ? Aspirin,Clopidogrel Reason for exam and clinical history: Arabella-hepatic abscesss Clinical information / sanchez questions: Is this abscess amenable to drainage. Requested Date 04/28/20 Requested Time 8:00 AM Presenting Diagnosis/ Complaint: Shannan Chaudhary is a 79 y.o. female transferred to [facility] for acute cholecystitis and subsequently found to have severe on preoperative evaluation as well as episodes of afib with RVR during admission. A cardiac catheterization was performed which showed 2 vesselCAD and is s/p coronary artery stenting requiring clopidogrel and aspirin which need to be continued for a least 6 weeks. She was subsequently diagnoses with acute cholecystitis for which a cholecystostomy catheter was placed on 04/22. The patient initially improved but then developed worsening sepsis with leukocytosis. CT was repeated which revealed a arabella-hepatic abscess. IR is consulted for percutaneous drainage of the arabella-hepatic abscess. Past Medical/Surgical History: Patient Active Problem List [...] Past Surgical History: Procedure Laterality Date ??? HYSTERECTOMY, VAGINAL ??? IR CHOLECYSTOSTOMY TUBE PLACEMENT 04/22/2020 IR Cholecystostomy Tube Placement 04/22/2020 Jos Collins, DO [facility] INTERVENTIONL RAD Medications: No current facility-administered medications on file prior to encounter. Current Outpatient Medications on File Prior to Encounter Medication Sig Dispense Refill ??? minocycline (MINOCIN;DYNACIN) 100 mg Capsule Take one capsule by mouth just before bedtime for 1 week. Then 1 capsule by mouth twice daily. 60 capsule 1 ??? VITAMIN D 1,000 unit Capsule take 1 capsule by mouth daily 0 ??? VICTOZA 2-ISABEL 0.6 mg/0.1 mL (18 mg/3 mL) Pen Injector inject 1.2 milligram subcutaneously daily0 ??? losartan (COZAAR) 100 mg Tablet take 1 tablet by mouth once daily 0 ??? VITAMINS B COMPLEX Tablet [...] mL 2 ??? blood sugar diagnostic strips ([employer] ULTRA TEST) Strip 1 each by Other [...] times daily. 10.65 400 each 3 ??? rosuvastatin (CRESTOR) 10 mg Tablet take 1 tablet by mouth NIGHTLY 90 tablet 0 ??? Blood-Glucose Meter Misc One Touch Ultra Brand, 250.02. 1 each 0 ??? Lancets Misc Use twice daily or as needed. 200 each 3 Allergies: Patient has no known allergies. Social [...] file Gets together: Not on file Attends taoism service: Not on file Active member of [...] Labs: Lab Results Component Value Date WBC 14.8 (H) 04/28/2020 HCT 32.5 (L) 04/28/2020 PLATELET 421 (H) 04/28/2020 INR 1.3 04/23/2020 BUN 16 04/28/2020 CREATININE 0.80 04/28/2020 ALKPHOS 201 (H) 04/28/2020 AST 12 04/28/2020 ALBUMIN 3.0 (L) 04/28/2020 BILIDIR 0.5 (H) 04/20/2020 BILITOT 0.4 04/28/2020 ALT 12 04/28/2020 PROT 6.3 04/28/2020 K 3.5 04/28/2020 Imaging: CT of the Abdomen & Pelvis - 04/27/20 Physical Exam: Pending (to be performed in angio the day of procedure) ASA: Pending (to be assessed in angio the day of procedure) Mallampati Class: Pending (to be assessed in angio the day of procedure) Assessment: 79 y.o. female transferred to [facility] for acute cholecystitis and subsequently found to have severe on preoperative evaluation as well as episodes of afib with RVR during admission. A cardiac catheterization was performed which showed 2 vessel CAD and is s/p coronary artery stenting requ iring clopidogrel and aspirin which need to be continued for a least 6 weeks. She was subsequently diagnoses with acute cholecystitis for which a cholecystostomy catheter was placed on 04/22. The patient initially improved but then developed worsening sepsis with leukocytosis. CT was repeated which r evealed a arabella-hepatic abscess. IR is consulted for percutaneous drainage of the arabella-hepatic abscess. Plan: Plan Planned procedure: Arabella-Hepatic Drainage Catheter Placement Labs to be performed day of procedure: No labs Sedation: Moderate (Conscious sedation) Prophylactic antibiotic : None Contrast: No contrast Additional medications for procedure: Lidocaine Medications to discontinue (and days held): None Planned access site: RUQ Position: Supine Cytopathology presence needed: No Consent: Pending 04/28/2020 * Haider Rea MD - 04/22/2020 9:26 AM EDT Images from the original note were not included. INTERVENTIONAL RADIOLOGY FOCUSED H&P and PRE-PROCEDURE NOTE: PCP: Reshma Baig MD Referring Provider: Bethany Ireland Planned Procedure: Planned procedure: Percutaneous cholecystostomy tube placement Procedure Indication: Acute cholecystitis, surgery contraindicated due to recent cardiac stent placement requiring continuation of clopidogrel, aspirin Order Questions Answers Reason for exam and clinical history: cholecystitis in the setting of recent ACS s/p stent placement. Is the patient on anticoagulant / anitplatelet therapy ? Clopidogrel,Aspirin Requested Date 04/22/20 Requested Time 9:19 AM Presenting Diagnosis/ Complaint: Shannan Chaudhary is a 79 y.o. female transferred to [facility] for acute cholecystitis and subsequently found to have severe on preop evaluation as well as episodes of afib with RVR during admission. A cardiac catheterization was performed which showed 2 vessel CAD and is s/p coronary artery stenting requiring clopidogrel and aspirin which need to be continued for aleast 6 weeks. IR is being consulted for percutaneous nephrostomy tube placement for control until patient can undergo cholecystectomy. Patient is currently in the ICU, NPO, not-intubated and on Zosyn. PMH, PSH, Medications, Outpatient Prescriptions, Allergies, Social History and Family History beloware obtained as per patient's medical record. Past Medical/Surgical History: Patient Active Problem List Diagnosis Code ??? Actinic keratosis L57.0 ??? Seborrheic keratosis L82.1 ??? Type II or unspecified type diabetes mellitus without mention of complication, uncontrolled [id number] ??? Hypertension I10 ??? Hyperlipidemia E78.5 ??? Arthritis M19.90 ??? Cholecystitis K81.9 Past Medical History: Diagnosis Date ??? Diabetes ??? Severe aortic stenosis Past Surgical History: Procedure Laterality Date ??? HYSTERECTOMY, VAGINAL Outpatient Medications: No current facility-administered medications on file prior to encounter. Current Outpatient Medications on File Prior to Encounter Medication Sig Dispense Refill ??? minocycline (MINOCIN;DYNACIN) 100 mg Capsule Take one capsule by mouth just before bedtime for 1 week. Then 1 capsule by mouth twice daily. 60 capsule 1 ??? VITAMIN D 1,000 unit Capsule take 1 capsule by mouth daily 0 ??? VICTOZA 2-ISABEL 0.6 mg/0.1 mL (18 mg/3 mL) Pen Injector inject 1.2 milligram subcutaneously daily0 ??? losartan (COZAAR) 100 mg Tablet take 1 tablet by mouth once daily 0 ??? VITAMINS B COMPLEX Tablet [...] mL 2 ??? blood sugar diagnostic strips (JibbigoTOUCH ULTRA TEST) Strip 1 each by Other [...] times daily. 10.65 400 each 3 ??? rosuvastatin (CRESTOR) 10 mg Tablet take 1 tablet by mouth NIGHTLY 90 tablet 0 ??? Blood-Glucose Meter [facility] One Touch Ultra Brand, 250.02. 1 each 0 ??? Lancets [facility] Use twice daily or as needed. 200 each 3 Inpatient Medications: Infusions: ??? nitroGLYcerin 50 mg in dextrose 5% 250 mL infusion Continuous PRN ### Scheduled medications: ??? AMIOdarone 200 mg Oral BID ### ??? losartan 50 mg Oral Daily ### ??? aspirin 81 mg Oral Daily ### ??? clopidogreL 75 mg Oral Daily ### ??? metoprolol tartrate 75 mg Oral Q6H BASIL ### ??? acetaminophen 1,000 mg Oral Q8H ### ??? polyethylene glycoL (MIRALAX) oral powder 17 g Oral Daily ### ??? senna-docusate 2 tablet Oral BID ### ??? rosuvastatin 10 mg Oral QPM ### ??? sodium chloride 0.9 % (flush) 5 mL Intravenous BID ### ??? heparin (Porcine) 5,000 Units Subcutaneous Q8H BASIL ### ??? piperacillin-tazobactam 3.375 g Intravenous Q8H ### ??? insulin lispro 1-4 Units Subcutaneous Q4H BASIL ### ??? insulin glargine 25 Units Subcutaneous Nightly ### PRN Medications: Current Facility-Administered Medications Medication Dose Route Frequency ??? potassium chloride 10 mEq in 100 mL 10 mEq Intravenous Q1H PRN Or ??? potassium chloride 10 mEq in 100 mL 10 mEq Intravenous Q1H PRN Or ??? potassium chloride 10 mEq in 100 mL 10 mEq Intravenous Q1H PRN ??? ipratropium-albuteroL (DUONEB) 0.5 mg-3 mg(2.5 mg base)/3 mL nebulizer solution 3 mL 3 mL Nebulization 4 Times Daily PRN ??? labetalol (NORMODYNE,TRANDATE) injection 10-20 mg 10-20 mg Intravenous Q2H PRN ??? fentaNYL 50 mcg/mL multi-dose injection Once PRN ??? heparin (porcine) 1,000 unit/mL injection Once PRN ??? fentaNYL 50 mcg/mL multi-dose injection Once PRN ??? midazolam (PF) (VERSED) multi-dose injection Once PRN ??? clopidogreL (Plavix) tablet Once PRN ??? nitroGLYcerin 50 mg in dextrose 5% 250 mL infusion Continuous PRN ??? iohexoL (OMNIPAQUE) 350 mg/mL solution Once PRN ??? midazolam (PF) (VERSED) injection 1 mg 1 mg Intravenous Q1H PRN ??? atropine injection 1 mg 1 mg Intravenous Q5 Min PRN ??? fentaNYL (PF) 50 mcg/mL injection 25 mcg Intravenous Q30 Min PRN ??? bisacodyl EC (Dulcolax) tablet 10 mg 10 mg Oral Daily PRN ??? sodium chloride 0.9 % (flush) flush 5-20 mL 5-20 mL Intravenous Q1 Min PRN ??? ondansetron (Zofran) tablet 4-8 mg 4-8 mg Oral Q8H PRN Or ??? ondansetron (ZOFRAN) injection 4-8 mg 4-8 mg Intravenous Q8H PRN ??? HYDROmorphone (DILAUDID) injection 0.4 mg 0.4 mg Intravenous Q4H PRN ??? oxyCODONE (Roxicodone) tablet 5 mg 5 mg Oral Q4H PRN ??? glucose (GLUTOSE) 40% oral geL 15-30 g Buccal Q30 Min PRN Or ??? dextrose 10% infusion 250 mL Intravenous Q30 Min PRN Or ??? glucagon (human recombinant) injection SolR 1 mg 1 mg Intramuscular Q30 Min PRN Allergies: Patient has no known allergies. Social [...] file Gets together: Not on file Attends taoism service: Not on file Active member of [...] file. Pertinent ROS: as per HPI Labs: Recent Labs 04/20/20 0325 04/21/20 0330 04/22/20 0350 WBC 17.9* 16.9* 13.5* HGB 10.3* 10.1* 8.6* HCT 32.6* 31.1* 26.8* PLATELET 217 275 313 Recent Labs 04/20/20 0243 04/21/20 0330 04/22/20 0350 INR 1.4 1.2 1.2 PT 15.7* 14.4* 13.9* Recent Labs 04/21/20 0330 04/21/20 2200 04/22/20 0350 NA 138 138 139 K 3.7 3.6 3.2* CL 102 102 103 CO2 21* 24 24 BUN 39* 31* 34* CREATININE 1.31* 1.00 1.10 Recent Labs 04/20/20 0243 04/21/20 0330 04/22/20 0350 BILITOT Not Perf 1.5* 1.0 0.6 BILIDIR 0.5* -- -- AST Not Perf 18 38* 19 ALT Not Perf 22 29 20 ALKPHOS Not Perf 139* 257* 245* Imaging: CT abd/pelv 04/19/20 Physical Exam: Pending (to be performed in angio the day of procedure) ASA: Pending (to be assessed in angio the day of procedure) Mallampati Class: Pending (to be assessed in angio the day of procedure) Assessment: Shannan Chaudhary is a 79 y.o. female transferred to [facility] for acute cholecystitis and subsequently found to have severe on preop evaluation as well as episodes of afib with RVR during admission. A cardiac catheterization was performed which showed 2 vessel CAD and is s/p coronary artery stenting requiring clopidogrel and aspirin which need to be continued for a least 6 weeks. IR isbeing consulted for percutaneous nephrostomy tube placement for control until patient can undergo cholecystectomy. Patient is currently in the ICU, NPO, not-intubated and on Zosyn. Plan: Plan Planned procedure: Percutaneous cholecystostomy tube placement Labs to be performed day of procedure: No labs Sedation: Fentanyl only Prophylactic antibiotic : None Contrast: Omnipaque Additional medications for procedure: Lidocaine Medications to discontinue (and days held): None Planned access site: RUQ Position: Supine Cytopathology presence needed: No Consent: Pending Haider Rea MD 04/22/2020 9:40 AM * Darwin Connors MD - 04/21/2020 4:23 PM EDT Cardiology Admission History and Physical Patient Name: Shannan Chaudhary Service: M1-S2 Responsible Attending: Darwin Connors MD PCP: Reshma Baig MD PCP phone #: [phone] ID/Chief Complaint: Ms. Chaudhary is a 79F with a PMH of HTN, HLD, DM, possible history of AF who presented as a transfer[facility] for acute cholecystitis with a course complicated by afib with RVR and hypotension now transferring to the Cardiology service due to severe (CORINE 0.8 at OSH) with consideration of direct i ntervention. History of Present Illness: Patient transferred from [facility] on 04/19 for cardiac preop eval due to severe for acute cholecystitis that likely started last Sunday. Hospital course has been complicated by afib with RVR and subsequent hypotension, diaphoresis, and confusion that was refractory to oral and 1-time IV metoprolol. She also developed hypoxic respiratory failure that escalated her oxygen requirements from room air to nasal cannula to BiPAP in order to maintain adequate oxygenation. She was given . She was thus transferred to the ICU for further care with metoprolol and phenlephrine and consideration of amiodarone. In the ICU, she converted to sinus rhythm and improved hemodynamically without administration of amiodarone. Cardiology was consulted for pre-op assessment. After discussion with Dr. Rahman and Dr. Patel, patient was taken to the biological lab technician for RHC and evaluation. In the biological lab technician she was found to have two vessel coronary disease affecting the LAD and LCA, with one synergy stent inserted into an osteal RCA lesion, as well as elevated LVEDP of 21. Aortic valve gradient was 22, and no balloon valvuloplasty was performed. She was found to be markedly hypertensive during the procedure and was started on a nitro drip intraprocedurally to control her blood pressures. The patient was then transferred back to the [facility]. On conference between the General Surgery attending Dr. Garrison and Dr. Rahman, the patient was kept NPO. At bedside, Ms. Chaudhary is tired but rousable, with no acute complaints. Full ROS was deferred given her mental status post-sedation. Review of Systems: Limited due to patient sedation. Postprocedurally: Denied chest, abdominal, and extremity pain, and shortness of breath. Problem List/Past Medical History Patient Active Problem List Diagnosis ??? Cholecystitis ??? Type II or unspecified type diabetes mellitus without mention of complication, uncontrolled ??? Hypertension ??? Hyperlipidemia ??? Arthritis ??? Actinic keratosis ??? Seborrheic keratosis Past Medical History: Diagnosis Date ??? Diabetes ??? Severe aortic stenosis Meds: No current facility-administered medications on file prior to encounter. Current Outpatient Medications on File Prior to Encounter Medication Sig Dispense Refill ??? minocycline (MINOCIN;DYNACIN) 100 mg Capsule Take one capsule by mouth just before bedtime for 1 week. Then 1 capsule by mouth twice daily. 60 capsule 1 ??? VITAMIN D 1,000 unit Capsule take 1 capsule by mouth daily 0 ??? VICTOZA 2-ISABEL 0.6 mg/0.1 mL (18 mg/3 mL) Pen Injector inject 1.2 milligram subcutaneously daily0 ??? losartan (COZAAR) 100 mg Tablet take 1 tablet by mouth once daily 0 ??? VITAMINS B COMPLEX Tablet [...] times daily. 10.65 400 each 3 ??? rosuvastatin (CRESTOR) 10 mg Tablet take 1 tablet by mouth NIGHTLY 90 tablet 0 ??? Blood-Glucose Meter Misc One Touch Ultra Brand, 250.02. 1 each 0 ??? Lancets [facility] Use twice daily or as needed. 200 each 3 Allergies: No Known Allergies Family History: No family history on file Social History: Denied use of tobacco products on prior interview with Dr. Rahman No illicit drug use Vitals: Last value Range last 24 hrs Temperature Temp: 36.4 ??C (97.5 ??F) Temp: [36.4 ??C (97.5 ??F)-37 ??C (98.6 ??F)] Heart Rate Heart Rate: 97 Heart Rate: [70-151] Blood Pressure BP: 177/81 BP: (114-226)/(41-117) Respiratory Rate Resp: 23 Resp: [17-40] SpO2 SpO2: 94 % SpO2: [87 %-100 %] Examination: General: Pleasant but tired, lying in bed supine in no acute distress. HEENT: EOMI, Constricted but reactive pupils bilaterally, anicteric sclera. Oropharynx clear w/o lesions. Moist mucous membranes. Neck: Supple with normal ROM. No obvious LAD. JVP unable to be assessed due to patient supination post-cath Cardiac: Normal S1 and S2 with 4/6 crescendo-decrescendo systolic murmur; Regular rate and rhythm; Respiratory: Nonlabored. Clear to auscultation bilaterally anteriorly; No wheezes/ rhonchi/ rales. Abd: + BS; soft, mild tenderness in RUQ to palpation, non-distended, no obvious masses. Ext: WWP without le edema, cyanosis or clubbing. DPP 2+ bilaterally. Neuro: Alert and oriented but sleepy without gross focal deficits. Appropriate. Skin: No rashs, no lesions, no petechiae Laboratory: Recent Labs 04/21/20 0330 04/20/20 0325 04/19/20 1604 WBC 16.9* 17.9* 17.0* HGB 10.1* 10.3* 11.2* HCT 31.1* 32.6* 34.8* PLATELET 275 217 220 Recent Labs 04/21/20 0330 04/20/20 0243 04/19/20 1604 NA 138 134* 135 K 3.7 3.9 4.1 CL 102 100 97* CO2 21* 20* 20* BUN 39* 30* 26* CREATININE 1.31* 1.26* 1.37* Recent Labs 04/21/20 0330 04/20/20 0243 04/19/20 1604 AST 38* Not Perf 18 28 ALT 29 Not Perf 22 30 ALKPHOS 257* Not Perf 139* 148* BILITOT 1.0 Not Perf 1.5* 2.1* BILIDIR -- 0.5* -- Recent Labs 04/21/20 0330 04/20/20 0243 04/19/20 1604 CALCIUM 8.6 8.3* 9.1 PHOS -- 3.6 -- Recent Labs 04/21/20 0445 04/20/20 2355 04/20/20 1735 TROPONINT 0.13* 0.12* 0.17* Recent Labs 04/21/20 0330 PT 14.4* INR 1.2 Microbiology: Microbiology Results (Last 30 days) No results found for the last 720 hours. Diagnostic Studies: EKG- Post-cath EKG showed NSR with RBBB CXR- Results for orders placed or performed during the hospital encounter of 04/19/[address] Abdomen & Pelvis (Exam End: 04/19/2020 4:15 PM) Impression 1. Hydropic gallbladder with gallbladder wall thickening, layering cholelithiasis, pericholecystic fat stranding; findings strongly suggestive of acute cholecystitis. Clinical correlation. Thank you for letting us participate in the care of this patient. For questions regarding this report, please contact the number below. Electronically signed by: Harris Shepard [facility] ([phone]), at 04/19/2020 4:27 PM XR Chest One View (Exam End: 04/21/2020 4:51 AM) Impression FINDINGS/IMPRESSION: Elevated RIGHT hemidiaphragm with some degree of basilar pleural-parenchymal opacification (likely effusion with atelectasis, although aspiration or pneumonia not excluded). Pulmonary vascular congestion and mild pulmonary edema. No pneumothorax seen. Cardiopericardial silhouette appears slightly globular and prominent, possibly accentuated by patient rotation. Thank you for letting us participate in the care of this patient. For questions regarding this report, please contact the number below. Electronically signed by: Dylan Kinsey [facility] ([phone]), at 04/21/2020 6:22 AM CXR compared to prior on 04/20 shows new basilar opacity on right, atelectasis vs pleural effusion vs both, likely secondary cholecystitis Most recent TTE (04/20/2020)- SUMMARY: ?? 1. Mild concentric left ventricular hypertrophy is [...] low stroke volume index (23 ml/m2). ?? ASSESSMENT: Shannan Chaudhary is a 79 y.o. female with multiple cardiac risk factors in the form ofHTN, HLD, and DM and now afib with RVR who presented to our service initialy as a preop consult andis now s/p stenting of her RCA, in the midst of active cholecystitis. She is stable post-catheterization, and is now planned for placement of a percutaneous cholecystostomy tube tomorrow given her requirement for DAPT for at least 6 weeks with her new synergy stent -- she can likely be considered for a proper cholecystectomy after 6 weeks, when her DAPT can be paused for the procedure should it be needed. Thankfully her was found to not be as bad as suggested on her TTE, which obviates the need for a balloon valvuloplasty or valve replacement in the near future, though it may be required eventually. Will observe in the [facility] overnight, and will be kept NPO given her cholecystitis. Full plan as follows With regards to her hypoxic respiratory failure, the most likely explanation seems to be that when Ms. Chaudhary flipped into afib RVR, her EF dropped precipitously and led to significant pulmonary vascular congestion. Her CXR shows a unilateral opacity in her right lower lobe that seems concerning for aspiration pneumonia outside of context -- Though this is lower on her differential, the zosyn that she is on for her cholecystitis will cover this empirically. We will obtain a chest x-ray in the morning to assess for progression of her pulmonary embolism PLAN: Transfer to Cardiology S1 service, Pager [phone] # NSTEMI, s/p stenting of RCA osteal lesion # Pulmonary edema 2/2 afib-RVR # Afib-RVR, now in sinus - Medications (Respective loading doses previously given): - Heparin gtt discontinued post-stenting - ASA 81mg qd - Plavix 75mg qd - Metoprolol tartrate 50mg Q6H - Consider initiation of lisinopril pending course - Rosuvastatin 10mg QHS - GTN prn chest pain - Labs - Will check a BMP now given her diuresis over the course of the day, replete lytes as needed - Will not trend enzymes post cath - CBC, CMP, coags daily - Lipid profile, hba1c tomorrow AM - Imaging - EKG qam - EKG per chest pain protocol - CXR performed, as above - TTE performed, as above # Acute cholecystitis - Continue zosyn - NPO for perc arron tomorrow # HTN - Goal SBP < 160. - Medications: Currently on a nitroglycerine drip, maintain overnight to keep pressures controlled - PRNs: Labetalol 10-20mg Q2H PRN # HF with elevated LVEDP # Pulmonary edema 2/2 afib RVR, now in sinus - Medications: Bolus diuresis with IV lasix - Is already negative 2.46 L today and is NPO, will hold off on further diuresis until morning - CXR in AM to assess progression of pulmonary edeam - Strict I/O's - Daily Weights # Diabetes: - Goal glucose < 180 - q 4 hour finger sticks - Sensitive SSI in place - Nightly glargine 25u, held while NPO Code Status: Attempt Cardiopulmonary Resuscitation - Inpatient # Misc Diet: NPO diet (Give Meds) DVT ppx: SQH GI ppx: Not indicated Code Status:Attempt Cardiopulmonary Resuscitation - Inpatient Dispo- Perc arron tube tomorrow, primary service to be determined by course Justus Rodríguez MD, PGY-1 Cardiology M1-S2, Team Pager [phone] 04/21/2020 Cardiology Attending Note I have seen and examined the patient on rounds with the team and agree with the findings above. Little to add to thoughtful assessment and plan. Will start amio short term to help maintain SR. Will need DOAC or warfarin post perc arron tube to prevent stroke with PAF. Would favor DOAC + clopidogrel(+/- asa for first month). If use ASA for triple therapy, would protect with PPI as well. Darwin Connors MD MS I certify that based on the above clinical information that inpatient services are medically necessary and I expect that this patient will remain in the hospital for at least two midnights for safe care. * Carmelo Burns MD - 04/20/2020 5:26 AM EDT Critical Care - Admission Note History of Present Illness: Shannan Chaudhary is a 79 y.o. female with PMH of severe aortic stenosis and type 2 DM who was admitted to [facility] due to cholecystitis with plan for cardiology pre-op eval prior to surgery due to severity of aortic stenosis. unstable Afib RVR (diaphoretic, confused and hypotensive) which was refractory to initial treatment w/ PO metop. A subsequent one time dose of IV metop x1 (2.5mg) was given andaround this time her hypotension worsened prompt. Transferred to the ICU for possible amiodarone. Review of Systems: ROS notable for: +SOB, +chest pain, denies nausea/vomiting, abd pain unchanged, denies lightheadedness or dizziness. Past Medical Surgery: Past Medical History: Diagnosis Date ??? Diabetes ??? Severe aortic stenosis Past and Surgical History: Past Surgical History: Procedure Laterality Date ??? HYSTERECTOMY, VAGINAL Prior To Admission Medications: Medications Prior to Admission Medication Sig Dispense Refill Last Dose ??? minocycline (MINOCIN;DYNACIN) 100 mg Capsule Take one capsule by mouth just before bedtime for 1 week. Then 1 capsule by mouth twice daily. 60 capsule 1 ??? VITAMIN D 1,000 unit Capsule take 1 capsule by mouth daily 0 ??? VICTOZA 2-ISABEL 0.6 mg/0.1 mL (18 mg/3 mL) Pen Injector inject 1.2 milligram subcutaneously daily0 ??? losartan (COZAAR) 100 mg Tablet take 1 tablet by mouth once daily 0 ??? VITAMINS B COMPLEX Tablet [...] times daily. 10.65 400 each 3 ??? rosuvastatin (CRESTOR) 10 mg Tablet take 1 tablet by mouth NIGHTLY 90 tablet 0 ??? Blood-Glucose Meter Misc One Touch Ultra Brand, 250.02. 1 each 0 ??? Lancets Misc Use twice daily or as needed. 200 each 3 Current Medications: ??? magnesium sulfate 2 g in sterile water 50 mL ??? metoprolol (LOPRESSOR) 5 mg/5 mL injection ??? metoprolol tartrate (Lopressor) tablet 25 mg ??? sodium chloride 0.9 % (flush) flush 5 mL ??? sodium chloride 0.9 % (flush) flush 5-20 mL ??? lidocaine (XYLOCAINE) 10 mg/mL (1 %) injection 3 mg ??? heparin (Porcine) subcutaneous injection 5,000 Units ??? ondansetron (Zofran) tablet 4-8 mg OR ondansetron (ZOFRAN) injection 4-8 mg ??? HYDROmorphone (DILAUDID) injection 0.4 mg ??? acetaminophen (Tylenol) tablet 1,000 mg ??? oxyCODONE (Roxicodone) tablet 5 mg ??? piperacillin-tazobactam (ZOSYN) 3.375 g vial attach to sodium chloride 0.9% 50 mL Mini-Bag Plus ??? glucose (GLUTOSE) 40% oral geL OR dextrose 10% infusion OR glucagon (human recombinant)injection SolR 1 mg ??? POCT Fingerstick Glucose AND insulin lispro (HumaLOG) VIAL injection 1-4 Units ??? insulin glargine VIAL injection 25 Units ??? sodium chloride 0.9% infusion Allergies: No Known Allergies Family History: No family history on file. Social History and Habits: Social History Socioeconomic [...] file Gets together: Not on file Attends taoism service: Not on file Active member of [...] Social History Narrative ??? Not on file Physical Exam: Last Set of Vitals and range of vitals over past 24 hours: Last value Range last 24 hrs Temperature Temp: 36.7 ??C (98.1 ??F) Temp: [36.7 ??C (98.1 ??F)-37.3 ??C (99.1 ??F)] Heart Rate Heart Rate: 92 Heart Rate: [92-172] Blood Pressure BP: 122/71 BP: (69-158)/(25-80) Respiratory Rate Resp: 24 Resp: [18-25] SpO2 SpO2: 94 % SpO2: [90 %-94 %] Gen: sitting up in bed, NAD HEENT: NC/AT CV: irregularly irregular and tachycardic - converted to sinus by end of exam, pronounced pansystolic murmur RESP: non labored breathing on 2L NC ABD: Soft, non distended, +murphys EXT: WWP, palpable pulses bilaterally, no edema Neuro: Grossly intact Laboratory (Last 24 Hours): Recent Results (from the past 24 hour(s)) ABO/Rh Typing Result Value Ref Range ABORh Type O Pos Antibody screen Result Value Ref Range Ab Screen Interp Negative Expires at 2359 on: 04/22/2020 ABORH Recheck Status Result Value Ref Range ABORH Recheck Order Order Placed ABORH Type Recheck Complete Comprehensive metabolic panel (non-fasting) Result Value Ref Range Glucose Lvl 146 65 - 199 mg/dL BUN 26 (H) 8 - 18 mg/dL Creatinine 1.37 (H) 0.70 - 1.20 mg/dL Sodium 135 135 - 145 mmol/L Potassium 4.1 3.5 - 5.0 mmol/L Chloride 97 (L) 98 - 107 mmol/L CO2 20 (L) 22 - 31 mmol/L Anion Gap 18 (H) 5 - 15 mmol/L Calcium 9.1 8.5 - 10.5 mg/dL Total Protein 7.1 6.1 - 8.0 gm/dL Albumin 3.6 3.2 - 5.2 gm/dL AST 28 0 - 30 unit/L ALT 30 0 - 30 unit/L Alk Phos 148 (H) 35 - 105 unit/L Total Bilirubin 2.1 (H) 0.2 - 1.3 mg/dL eGFR 37 (L) >=60 mL/min/1.73 m?? eGFR 42 (L) >=60 mL/min/1.73 m?? Prothrombin Time Result Value Ref Range PT 16.9 (H) 9.4 - 12.5 sec INR 1.5 Hemogram Result Value Ref Range WBC 17.0 (H) 4.0 - 9.5 x10(3)/mcL RBC 4.07 4.00 - 5.21 x10(6)/mcL Hemoglobin 11.2 (L) 11.7 - 15.5 gm/dL Hematocrit 34.8 (L) 35.7 - 45.8 % MCV 85.5 82.6 - 94.4 fL MCH 27.5 27.1 - 32.0 pg MCHC 32.2 31.7 - 35.0 gm/dL Platelets 220 145 - 357 x10(3)/mcL RDWSD 47.3 (H) 37.0 - 46.0 fL RDWCV 15.1 (H) 11.5 - 14.1 % MPV 11.3 7.6 - 12.9 fL nRBC % Auto 0.0 % nRBC Abs Auto 0.000 0.000 - 0.000 x10(3)/mcL Differential, Automated Result Value Ref Range Neutrophils % 85.2 % Neutr Abs (ANC) 14.50 (H) 1.70 - 6.10 x10(3)/mcL Lymphocytes % 7.8 % Lymphocytes Abs 1.3 0.9 - 3.2 x10(3)/mcL Monocytes % 5.7 % Monocyte Abs 1.0 (H) 0.3 - 0.9 x10(3)/mcL Eosinophils % 0.2 % Eosinophils Abs 0.0 0.0 - 0.4 x10(3)/mcL Basophils % 0.2 % Basophils Abs 0.0 0.0 - 0.1 x10(3)/mcL Immature Gran % 0.90 % Nanci Gran Abs 0.16 (H) 0.00 - 0.04 x10(3)/mcL POCT Glucose Result Value Ref Range POC Glucose 151 65 - 199 mg/dL POCT Glucose Result Value Ref Range POC Glucose 153 65 - 199 mg/dL POCT Glucose Result Value Ref Range POC Glucose 112 65 - 199 mg/dL Troponin Result Value Ref Range Troponin-T <0.01 0.00 - 0.00 ng/mL Prothrombin Time Result Value Ref Range PT 15.7 (H) 9.4 - 12.5 sec INR 1.4 Comprehensive metabolic panel (non-fasting) Result Value Ref Range Glucose Lvl 129 65 - 199 mg/dL BUN 30 (H) 8 - 18 mg/dL Creatinine 1.26 (H) 0.70 - 1.20 mg/dL Sodium 134 (L) 135 - 145 mmol/L Potassium 3.9 3.5 - 5.0 mmol/L Chloride 100 98 - 107 mmol/L CO2 20 (L) 22 - 31 mmol/L Anion Gap 14 5 - 15 mmol/L Calcium 8.3 (L) 8.5 - 10.5 mg/dL Total Protein 6.1 6.1 - 8.0 gm/dL Albumin 2.8 (L) 3.2 - 5.2 gm/dL AST 18 0 - 30 unit/L ALT 22 0 - 30 unit/L Alk Phos 139 (H) 35 - 105 unit/L Total Bilirubin 1.5 (H) 0.2 - 1.3 mg/dL eGFR 40 (L) >=60 mL/min/1.73 m?? eGFR 47 (L) >=60 mL/min/1.73 m?? Magnesium Result Value Ref Range Magnesium 0.71 0.69 - 1.07 mmol/L Phosphorus Result Value Ref Range Phosphorus 3.6 2.5 - 4.5 mg/dL Hepatic Function Panel Result Value Ref Range Bili, Direct 0.5 (H) 0.0 - 0.3 mg/dL Lipase Result Value Ref Range Lipase 11 0 - 60 unit/L POCT Glucose Result Value Ref Range POC Glucose 134 65 - 199 mg/dL Hemogram Result Value Ref Range WBC 17.9 (H) 4.0 - 9.5 x10(3)/mcL RBC 3.75 (L) 4.00 - 5.21 x10(6)/mcL Hemoglobin 10.3 (L) 11.7 - 15.5 gm/dL Hematocrit 32.6 (L) 35.7 - 45.8 % MCV 86.9 82.6 - 94.4 fL MCH 27.5 27.1 - 32.0 pg MCHC 31.6 (L) 31.7 - 35.0 gm/dL Platelets 217 145 - 357 x10(3)/mcL RDWSD 48.5 (H) 37.0 - 46.0 fL RDWCV 15.0 (H) 11.5 - 14.1 % MPV 10.7 7.6 - 12.9 fL nRBC % Auto 0.0 % nRBC Abs Auto 0.000 0.000 - 0.000 x10(3)/mcL Differential, Automated Result Value Ref Range Neutrophils % 86.0 % Neutr Abs (ANC) 15.43 (H) 1.70 - 6.10 x10(3)/mcL Lymphocytes % 5.4 % Lymphocytes Abs 1.0 0.9 - 3.2 x10(3)/mcL Monocytes % 5.9 % Monocyte Abs 1.0 (H) 0.3 - 0.9 x10(3)/mcL Eosinophils % 0.4 % Eosinophils Abs 0.1 0.0 - 0.4 x10(3)/mcL Basophils % 0.3 % Basophils Abs 0.1 0.0 - 0.1 x10(3)/mcL Immature Gran % 2.00 % Nanci Gran Abs 0.36 (H) 0.00 - 0.04 x10(3)/mcL POCT Glucose Result Value Ref Range POC Glucose 151 65 - 199 mg/dL Microbiology: none Radiology: Results for orders placed or performed during the hospital encounter of 04/19/[address] Read [address] Abdomen & Pelvis (Exam End: 04/19/2020 4:15 PM) Impression 1. Hydropic gallbladder with gallbladder wall thickening, layering cholelithiasis, pericholecystic fat stranding; findings strongly suggestive of acute cholecystitis. Clinical correlation. Thank you for letting us participate in the care of this patient. For questions regarding this report, please contact the number below. Assessment/Plan: Shannan Chaudhary is a 79 y.o. female with PMH of severe aortic stenosis admitted with acute cholecystitis with course now c/b by unstable Afib RVR. She has been accepted to the unit for planned amioprotocol and arden for BP support. As of the time of this note writing she has converted back into NSR and is HDS. Will therefore forego amio protocol and optimize with initiation of metop for rate control. Will need formal echo and ongoing cards engagement. Neuro: pain control: acetaminophen, dilaudid 0.4mg q4hr and oxycodone 5mg PRN CV: Aortic stenosis, Afib RVR - vasopressors: arden as need for MAP >65 - Perform bedside echo - TTE ordered - start metop 25 q8h Pulm: FREDDIE FEN: NS @ 100 ml/hr GI: Zofran 4-8mg q8hr PRN, NPO give meds Endo: IDDM: glargine 25 QHS, SSI ID: Zosyn q8hr Heme: SQH PPx: - DVT: SCD's, heparin 5000 units q8 Disp: admit to ICU, Critical Care Red 1 Carmelo Burns MD 04/20/2020 * Magdalene Loepz MD - 04/19/2020 5:24 PM EDT [facility] Acute Care Surgery Admission H&P History of Present Illness: Shannan Chaudhary is a 79 y.o. female with PMH IDDM and reported aorticstenosis with valve area 0.8 (records unavailable in [facility] but reviewed by [facility] referring MD) who is admitted in transfer with cholecystitis. She reports that she vaguely recalls a previous echo and need for cardiology follow-up within the past year, but then she broke her leg and was then further delayed in her presentation due to COVID-19. She was due for a stress test recently but did not make the visit due to her admission for cholecystitis. In terms of her cholecystitis she describes pain since last Sunday. She was seen in the ED but left that night. Her pain worsened over the subsequent days and she presented to [facility] ED yesterday (Sunday). There her tBili was noted to be 2.2 and is stable at 2.1 here. PMH/PSH: Vaginal hysterectomy IDDM Type 2 Aortic Stenosis Medications No current facility-administered medications on file prior to encounter. Current Outpatient Medications on File Prior to Encounter Medication Sig Dispense Refill ??? minocycline (MINOCIN;DYNACIN) 100 mg Capsule Take one capsule by mouth just before bedtime for 1 week. Then 1 capsule by mouth twice daily. 60 capsule 1 ??? VITAMIN D 1,000 unit Capsule take 1 capsule by mouth daily 0 ??? VICTOZA 2-ISABEL 0.6 mg/0.1 mL (18 mg/3 mL) Pen Injector inject 1.2 milligram subcutaneously daily0 ??? losartan (COZAAR) 100 mg Tablet take 1 tablet by mouth once daily 0 ??? VITAMINS B COMPLEX Tablet [...] times daily. 10.65 400 each 3 ??? rosuvastatin (CRESTOR) 10 mg Tablet take 1 tablet by mouth NIGHTLY 90 tablet 0 ??? Blood-Glucose Meter Misc One Touch Ultra Brand, 250.02. 1 each 0 ??? Lancets Misc Use twice daily or as needed. 200 each 3 Allergies No Known Allergies Family History: No family history on file. Social History: Social History Socioeconomic History ??? Marital status: [...] and Sexual Activity ??? Alcohol use: Not on file ??? Drug use: Not on file ??? Sexual activity: Not on file Lifestyle ??? Physical activity Days per week: Not on file Minutes per session: Not on file ??? Stress: Not on file Relationships ??? Social connections Talks on phone: Not on file Gets together: Not on file Attends taoism service: Not on file Active member of [...] Social History Narrative ??? Not on file Review of Systems: Complete 10 point ROS obtained, pertinent positives and negatives as per HPI Physical Exam: Temp: [37.3 ??C (99.1 ??F)] Heart Rate: -- Resp: [18] BP: (145)/(71) SpO2: [92 %] Heart Rate from SpO2: [105 bpm] General: NAD, resting comfortably, pleasant, conversant HEENT: PERRL, anicteric sclerae CVS: regular rate at time of exam. Documented HR in 100s. Distinct systolic ejection murmur Pulm: Left lung field CTA, right lung field with mild rhonchi. Wet cough Abd: soft, distended, moderately TTP in RUQ > RLQ. Non-tender in L doug abdomen. Tympanic to percussion. (+) Orozco's. No rebound, guarding, or rigidity. Skin: warm, dry Neuro: non-focal, moving all four extremities spontaneously Data independently reviewed: Recent Results (from the past 24 hour(s)) ABO/Rh Typing Result Value Ref Range ABORh Type O Pos Antibody screen Result Value Ref Range Ab Screen Interp Negative Expires at 2359 on: 04/22/2020 ABORH Recheck Status Result Value Ref Range ABORH Recheck Order Order Placed ABORH Type Recheck Complete Comprehensive metabolic panel (non-fasting) Result Value Ref Range Glucose Lvl 146 65 - 199 mg/dL BUN 26 (H) 8 - 18 mg/dL Creatinine 1.37 (H) 0.70 - 1.20 mg/dL Sodium 135 135 - 145 mmol/L Potassium 4.1 3.5 - 5.0 mmol/L Chloride 97 (L) 98 - 107 mmol/L CO2 20 (L) 22 - 31 mmol/L Anion Gap 18 (H) 5 - 15 mmol/L Calcium 9.1 8.5 - 10.5 mg/dL Total Protein 7.1 6.1 - 8.0 gm/dL Albumin 3.6 3.2 - 5.2 gm/dL AST 28 0 - 30 unit/L ALT 30 0 - 30 unit/L Alk Phos 148 (H) 35 - 105 unit/L Total Bilirubin 2.1 (H) 0.2 - 1.3 mg/dL eGFR 37 (L) >=60 mL/min/1.73 m?? eGFR 42 (L) >=60 mL/min/1.73 m?? Prothrombin Time Result Value Ref Range PT 16.9 (H) 9.4 - 12.5 sec INR 1.5 Hemogram Result Value Ref Range WBC 17.0 (H) 4.0 - 9.5 x10(3)/mcL RBC 4.07 4.00 - 5.21 x10(6)/mcL Hemoglobin 11.2 (L) 11.7 - 15.5 gm/dL Hematocrit 34.8 (L) 35.7 - 45.8 % MCV 85.5 82.6 - 94.4 fL MCH 27.5 27.1 - 32.0 pg MCHC 32.2 31.7 - 35.0 gm/dL Platelets 220 145 - 357 x10(3)/mcL RDWSD 47.3 (H) 37.0 - 46.0 fL RDWCV 15.1 (H) 11.5 - 14.1 % MPV 11.3 7.6 - 12.9 fL nRBC % Auto 0.0 % nRBC Abs Auto 0.000 0.000 - 0.000 x10(3)/mcL Differential, Automated Result Value Ref Range Neutrophils % 85.2 % Neutr Abs (ANC) 14.50 (H) 1.70 - 6.10 x10(3)/mcL Lymphocytes % 7.8 % Lymphocytes Abs 1.3 0.9 - 3.2 x10(3)/mcL Monocytes % 5.7 % Monocyte Abs 1.0 (H) 0.3 - 0.9 x10(3)/mcL Eosinophils % 0.2 % Eosinophils Abs 0.0 0.0 - 0.4 x10(3)/mcL Basophils % 0.2 % Basophils Abs 0.0 0.0 - 0.1 x10(3)/mcL Immature Gran % 0.90 % Nanci Gran Abs 0.16 (H) 0.00 - 0.04 x10(3)/mcL POCT Glucose Result Value Ref Range POC Glucose 151 65 - 199 mg/dL Imaging: CT Abdomen Pelvis (From OSH - 2nd read) - Hydropic gallbladder with gallbladder wall thickening, layering cholelithiasis, distension measuring 5.5cm cholelithiasis, pericholecystic fat stranding; findings strongly suggestive of acute cholecystitis - Normal liver and non-dilated bile ducts. No pancreatic ductal dilatation or peripancreatic fluid. Impression: 79y F with severe aortic stenosis and IDDM who presented to OSH with cholecystitis who was transferred to [facility] due to increased cardiac risk associated with an operation in the setting ofsevere . Plan: -Admit to [facility] -Tylenol scheduled, Oxycodone and Diluadid IV PRN -Zosyn -CBC, CMP now and in AM -Echo, Cardiology consult to inform operative planning -Floor status Neri Shaver MD General Surgery Resident ACS [id number] Attending Addendum I have seen and examined the patient, I have reviewed the vitals, labs and pertinent imaging. I have discussed the documentation above and agree, with the following comments: Ms. Chaudhary is a 79yoF with history of severe (last ECHO 2018 with valve area 0.8) who has had abdominal pain since last Sunday, was noted on imaging at [facility] to have a hydropic gallbladder withthickening and pericholecystic fat stranding. Due to her , she was not a surgical candidate at that institution and was transferred here for further care. Her total bilirubin has been elevated at 2, though there is no clear sign of choledocholithiasis on imaging. She requires an ECHO prior to anyoperative intervention to assess her current valvular function and to appropriately assess her preoperative risk. Will trend LFTs / total bilirubin. Magdalene Lopez MD [id number] documented in this encounter Miscellaneous Notes * Plan of Care - Tete Tanner RN - 05/08/2020 1:21 AM EDT Problem: Patient Care Overview Goal: Plan of Care Review Outcome: Ongoing (Interventions Implemented as Appropriate) 05/07/20204805/08/20 0112 Coping/Psychosocial Plan Of Care Reviewed With patient -- Plan of Care Review Progress -- progress toward functional goals as expected OUTCOME EVALUATION NOTE: OUTCOME SUMMARY: Patient is pleasant and cooperative, alert and oriented x4, able to make needs known. VSS on RA, afebrile. No c/o pain. Arron drain is patent, draining dark yellow/brown liquid, SIS drain is patent, draining serosanguineous drainage- see chart for amounts. Patient resting between care, no acute events during shift. PLAN MOVING FORWARD: DC INDIVIDUALIZED FALL PREVENTION INTERVENTIONS: Patient-specific fall risk factors per assessment: [current deficits]: weakness Assistance [level of assistance required for transfers and ambulation]: independent Supervision [direct monitoring required during toileting and ADLs]: independent Surveillance [continuous indirect monitoring]: Masimo, call light within reach, purposeful rounding, room near unit station Patient-specific fall prevention interventions for sensory deficits provided, if applicable: n/a CPG GOAL OUTCOME EVALUATION: Goal: Individualization & Mutuality Outcome: Ongoing (Interventions Implemented as Appropriate) 04/19/202034 Mutuality/Individual Preferences What Anxieties, Fears or Concerns Do You Have About Your Health or Care? just that things are different What Questions Do You Have About Your Health or Care? none What Information Would Help Us Give You More Personalized Care? none Goal: Fall Prevention-Safe Patient Handling Outcome: Ongoing (Interventions Implemented as Appropriate) 05/06/20 1112 05/07/20204805/08/2010 Daily Care Interventions Self-Care Promotion -- BADL personal routines maintained;independence encouraged -- Campos Fall Risk History of Falling -- 0 -- Secondary Diagnosis -- 15 -- Ambulatory Aids -- 0 -- Intravenous Therapy/Heparin/Saline Lock -- 20 -- Gait/Transferring -- 0 -- Mental Status -- 0 -- Score -- 35 -- OTHER Campos Fall Risk -- Med -- Restraint Interventions Safety Promotion/Fall Prevention -- -- safety round/check completed Positioning Body Position -- -- independent Activity Activity Type -- activity adjusted per tolerance -- Activity Assistance Provided -- independent -- Assistive Device Utilized none -- -- Goal: Infection Control Outcome: Ongoing (Interventions Implemented as Appropriate) 05/07/20204805/08/2010 Safety Interventions Isolation Precautions -- standard precautions maintained Infection Prevention -- single patient room provided Coping Strategies Supportive Measures active listening utilized;self-care encouraged;verbalization of feelings encouraged -- Goal: Discharge Needs Assessment Outcome: Ongoing (Interventions Implemented as Appropriate) 04/19/20 1810 04/20/20 1537 05/08/20111 Discharge Needs Assessment Concerns To Be Addressed -- no discharge needs identified -- Readmission Within The Last 30 Days -- no previous admission in last 30 days -- Provider Choice List(s) Given -- no -- Discharge Disposition -- -- still a patient Living Environment Transportation Available family or friend will provide -- -- Goal: Interdisciplinary Rounds/Family Conf Outcome: Ongoing (Interventions Implemented as Appropriate) 05/08/20111 Interdisciplinary Rounds/Family Conf Participants nursing;patient Problem: Skin Integrity Impairment, Risk/Actual (Adult) Goal: Skin Integrity/Wound Healing Patient will demonstrate the desired outcomes by discharge/transition of care. Outcome: Ongoing (Interventions Implemented as Appropriate) 05/08/20111 Skin Integrity Impairment, Risk/Actual (Adult) Skin Integrity/Wound Healing making progress toward outcome * Plan of Care - Krisit Gallegos RN - 05/07/2020 3:48 PM EDT Problem: Patient Care Overview Goal: Plan of Care Review Outcome: Ongoing (Interventions Implemented as Appropriate) 05/07/20 0543 05/07/20 0810 Coping/Psychosocial Plan Of Care Reviewed With -- patient Plan of Care Review Progress progress toward functional goals as expected -- .. OUTCOME EVALUATION NOTE: OUTCOME SUMMARY: Patient alert & oriented x 4 throughout the shift, calm and cooperative with care. Patient refused bowel meds this AM, and she stated she did not need them. Arron bag draining well, dark yellow fluid. SIS drain flushed well, draining serosanguinous fluid. No complaints of pain at insertion site.Sacral area slightly reddned, z guard placed. Patient had full bath with MAINTENANCE MANAGER. Left IV dressing changed. Patient went for walk with mobility tech, no reports of pain or SOB with ambulation. No acute events throughout the shift. Will continue to monitor and notify team of changes. PLAN MOVING FORWARD: Discharge planning INDIVIDUALIZED FALL PREVENTION INTERVENTIONS: Patient-specific fall risk factors per assessment: [current deficits]: Drain sites, weakness Assistance [level of assistance required for transfers and ambulation]: 1 SBA Supervision [direct monitoring required during toileting and ADLs]: Eyes on Surveillance [continuous indirect monitoring]: Jese, purposeful rounding, Patient-specific fall prevention interventions for sensory deficits provided, if applicable: [X] N/A CPG GOAL OUTCOME EVALUATION: * Plan of Care - Sandy Subramanian RN - 05/07/2020 5:45 AM EDT Problem: Patient Care Overview Goal: Plan of Care Review Outcome: Ongoing (Interventions Implemented as Appropriate) 05/07/20 0543 Coping/Psychosocial Plan Of Care Reviewed With patient Plan of Care Review Progress progress toward functional goals as expected OUTCOME EVALUATION NOTE: ?? OUTCOME SUMMARY: ?? Pt A+O x4. VSS and on RA, afebrile. Able to make needs known. C/o 4/10 pain in abdomen at drain site, managed with scheduled Tylenol. Hepatic and arron drain dressing clean, dry, intact. SIS drain flushed Q8 without issue with minimal serosanguinous drainage. Arron drain with moderate amounts of yellow, brown output to drainage bag. Q4 fingersticks maintained. Repositioning off sacrum was encouraged with some effect. Zgaurd applied to perirectal and gluteal fold area. ?? One small tarry BM overnight. ?? Patient calm and cooperative throughout shift, and rested with eyes closed most of the night. No acute events. Will continue to monitor and notify team of any changes. ? PLAN MOVING FORWARD: ?? Drain care Q4 finger sticks Monitor for signs of bleeding Pain management Discharge planning ? INDIVIDUALIZED FALL PREVENTION INTERVENTIONS: ?? Patient-specific fall risk factors per assessment: [current deficits]:?Drains, unfamiliar environment ?? Assistance [level of assistance required for transfers and ambulation]:??SBA w/ walker ?? Supervision [direct monitoring required during toileting and ADLs]:??Eyes on ? Surveillance [continuous indirect monitoring]:?Purposeful rounding, room near nsg station, call light within reach, bed/chair alarm, masimo on ? Patient-specific fall prevention interventions for sensory deficits provided, if applicable:??Na ?? CPG GOAL OUTCOME EVALUATION:??Continue goals of care * Plan of Care - Fahad Muhammad RN - 05/06/2020 4:10 PM EDT Problem: Patient Care Overview Goal: Plan of Care Review Outcome: Ongoing (Interventions Implemented as Appropriate) 05/06/20 0454 05/06/20 0923 Coping/Psychosocial Plan Of Care Reviewed With -- patient Plan of Care Review Progress progress toward functional goals as expected -- OUTCOME EVALUATION NOTE: OUTCOME SUMMARY: Pt A+Ox4 and able to make needs known, calm and cooperative. VSS on RA. BM x3 of black tarry stool.Pt had low hemoglobin of 7.0, received 1 unit of RBCs. 20 minutes after administration pt reported that her L arm felt cool and full, just different from before. Transfusion was stopped and restarted in the R arm. IV team paged to come assess L PIV. IV team assessed IV and found it flushed without difficulty and no s/s of infiltration. Pt hemoglobin increased to 9.7 post transfusion. FS maintained Q4. Drain care completed. Able to flush SIS drain at 0830, but at 1630 was unable to disconnect tubing to flush, team made aware. Pt c/o discomfort at dressing site after manipulation of tubing, declined PRN pain med. I/Os maintained. Both dressings c/d/i, arron drain producing moderate amount ofgreen/brown fluid, hepatic draining scant amount of serosanguinous fluid. Pt SBA, goal to walk x1 around the unit per day. Will CTM and notify MD of changes. PLAN MOVING FORWARD: Drain Care Q8 hr flush of hepatic drain I/Os Monitor labs Monitor for signs of bleeding Discharge Planning INDIVIDUALIZED FALL PREVENTION INTERVENTIONS: Patient-specific fall risk factors per assessment: [current deficits]: Masimo, IV sites, unfamiliarenvironment, generalized weakness, drains Assistance [level of assistance required for transfers and ambulation]: SBA Supervision [direct monitoring required during toileting and ADLs]: Hands on Surveillance [continuous indirect monitoring]: Masimo, purposeful rounding, room near unit station,call aguilar in reach Patient-specific fall prevention interventions for sensory deficits provided, if applicable: [X] N/A CPG GOAL OUTCOME EVALUATION: * Plan of Care - Sandy Subramanian RN - 05/06/2020 4:54 AM EDT Problem: Patient Care Overview Goal: Plan of Care Review Outcome: Ongoing (Interventions Implemented as Appropriate) 05/06/20 0454 Coping/Psychosocial Plan Of Care Reviewed With patient Plan of Care Review Progress progress toward functional goals as expected OUTCOME EVALUATION NOTE: ?? OUTCOME SUMMARY: ?? Pt A+O x4. VSS and on RA, afebrile. Able to make needs known. C/o 4/10 pain in abdomen at drain site, managed with scheduled Tylenol. Hepatic and arron drain dressing clean, dry, intact. SIS drain flushed Q8 per order with minimal serosanguinous drainage. Arron drain with moderate amounts of yellow,brown output to drainage bag. Q4 fingersticks maintained. Repositioning off sacrum was encouraged with some effect. Zgaurd applied to perirectal and gluteal fold area. ?? No BM overnight. Q8 CBCs ordered at 0500 and hgb came back at 7.0. ?? @0700 pt had a small black tarry stool. Patient calm and cooperative throughout shift, and rested with eyes closed most of the night. Will continue to monitor and notify team of any changes. ? PLAN MOVING FORWARD: ?? Drain care Q4 finger sticks Q8 CBC Monitor for signs of bleeding Pain management Discharge planning ? INDIVIDUALIZED FALL PREVENTION INTERVENTIONS: ?? Patient-specific fall risk factors per assessment: [current deficits]:?Drains, unfamiliar environment ?? Assistance [level of assistance required for transfers and ambulation]:??SBA w/ walker ?? Supervision [direct monitoring required during toileting and ADLs]:??Eyes on ? Surveillance [continuous indirect monitoring]:?Purposeful rounding, room near nsg station, call light within reach, bed/chair alarm, masimo on ? Patient-specific fall prevention interventions for sensory deficits provided, if applicable:??Na ?? CPG GOAL OUTCOME EVALUATION:??Continue goals of care * Plan of Care - Marta Roman RN - 05/05/2020 7:16 PM EDT Problem: Patient Care Overview Goal: Plan of Care Review Outcome: Ongoing (Interventions Implemented as Appropriate) 05/05/20 0358 05/05/20 0800 Coping/Psychosocial Plan Of Care Reviewed With -- patient Plan of Care Review Progress progress toward functional goals as expected -- OUTCOME EVALUATION NOTE: OUTCOME SUMMARY: Alert and orientated x4. VSS on RA. Patient complains of 3/10 pain at the SIS and arron drain insertion site. Administered scheduled Tylenol. Pain level improved. Dressing change completed. No redness, swelling, or drainage at the drain sites. SIS drain flushed with 5mL q8. SIS drain and arron drain emptied. Dressing is clean, dry, and intact. Presence of two tarry, loose stools. Patient refused scheduled Miralx and Senna. Administered insulin lispro per parameters. Will continue to monitor and notify MD of any acute changes. PLAN MOVING FORWARD: Q4 Finger Sticks Monitor for S/S of bleeding Pain Management Discharge Planning Drain Care INDIVIDUALIZED FALL PREVENTION INTERVENTIONS: Patient-specific fall risk factors per assessment: [current deficits]: Generalized weakness, IV sites, and drains. Assistance [level of assistance required for transfers and ambulation]: SBA. Supervision [direct monitoring required during toileting and ADLs]: Eyes on. Surveillance [continuous indirect monitoring]: Masimo, bed alarm audible, purposeful rounding, and room near unit station. Patient-specific fall prevention interventions for sensory deficits provided, if applicable: N/A CPG GOAL OUTCOME EVALUATION: * Plan of Care - Sandy Subramanian RN - 05/05/2020 4:00 AM EDT Problem: Patient Care Overview Goal: Plan of Care Review Outcome: Ongoing (Interventions Implemented as Appropriate) 05/05/20 0358 Coping/Psychosocial Plan Of Care Reviewed With patient Plan of Care Review Progress progress toward functional goals as expected OUTCOME EVALUATION NOTE: ?? OUTCOME SUMMARY: ?? Pt A+O x4. VSS and on RA, afebrile. Able to make needs known. C/o 12/04 pain in abdomen at drain site, managed with scheduled. Tylenol. Drain dressing clean, dry, intact. SIS drain flushed Q8 per orderwith minimal serosanguinous drainage. Arron drain with moderate amounts of yellow, brown output to drainage bag. Q4 fingersticks maintained. Repositioning off sacrum was encouraged with some effect. Zgaurd applied to perirectal area. No BM overnight. ?? Patient calm and cooperative throughout shift, and rested with eyes closed most of the night. Will continue to monitor and notify team of any changes. ? PLAN MOVING FORWARD: ?? Drain care Q4 finger sticks Monitor for signs of bleeding Pain management Discharge planning ? INDIVIDUALIZED FALL PREVENTION INTERVENTIONS: ?? Patient-specific fall risk factors per assessment: [current deficits]: Drains, unfamiliar environment ?? Assistance [level of assistance required for transfers and ambulation]: SBA w/ walker ?? Supervision [direct monitoring required during toileting and ADLs]: Eyes on ?? Surveillance [continuous indirect monitoring]: Purposeful rounding, room near nsg station, call light within reach, bed/chair alarm, masimo on ? Patient-specific fall prevention interventions for sensory deficits provided, if applicable: Na ?? CPG GOAL OUTCOME EVALUATION: Continue goals of care * Plan of Care - Fahad Muhammad RN - 05/04/2020 2:59 PM EDT Problem: Patient Care Overview Goal: Plan of Care Review Outcome: Ongoing (Interventions Implemented as Appropriate) 05/01/20 0559 05/04/20 0821 Coping/Psychosocial Plan Of Care Reviewed With -- patient Plan of Care Review Progress progress toward functional goals as expected -- OUTCOME EVALUATION NOTE: OUTCOME SUMMARY: Pt A+O x4 , calm and cooperative, and able to make needs known. VSS on RA, denies pain. BM x3 of black tarry stool, MD made aware and Eliquis held per MD verbal order, order discontinued. Miralax andsenna refused by patient.Timed Hemogram at 1400 obtained, next one scheduled for 1999. FS maintained Q4. Drain care and flush maintained per orders, I/Os maintained. Both dressings c/d/i. Arron producing moderate green/brown fluid and hepatic draining scant serosanguineous fluid. Pt SBA and up in chair for afternoon. Will CTM and notify MD of changes. PLAN MOVING FORWARD: Drain Care FS Q4hrs I/Os Monitor for bleeding Monitor Labs Discharge Planning INDIVIDUALIZED FALL PREVENTION INTERVENTIONS: Patient-specific fall risk factors per assessment: [current deficits]: IV site, Masimo, Drains, generalized weakness, unfamiliar environment Assistance [level of assistance required for transfers and ambulation]: SBA Supervision [direct monitoring required during toileting and ADLs]: Hands on Surveillance [continuous indirect monitoring]: Masimo, purposeful rounding, room near unit station,call light in reach Patient-specific fall prevention interventions for sensory deficits provided, if applicable: [X] N/A CPG GOAL OUTCOME EVALUATION: * Plan of Care - Jeevan Curiel RN - 05/04/2020 1:51 AM EDT Problem: Patient Care Overview Goal: Plan of Care Review Outcome: Ongoing (Interventions Implemented as Appropriate) 05/01/20 0559 05/03/202010 Coping/Psychosocial Plan Of Care Reviewed With -- patient Plan of Care Review Progress progress toward functional goals as expected -- OUTCOME EVALUATION NOTE: ?? OUTCOME SUMMARY: Shannan Chaudhary'corey vital signs stable. Patient is Alert. Oriented to person, place, time and situation. Pleasant. Drains managed, SIS flushed, limited output. Voiding well. No complaints. No acute events. Resting comfortably. SCDs. Large tarry black stool. PLAN MOVING FORWARD: Continue assessment of patient primary problem, monitor for vital sign changes, update care team (MD) of changes/as needed. Encourage mobility as safe Drain management Plan DC Goal: Fall Prevention-Safe Patient Handling Outcome: Ongoing (Interventions Implemented as Appropriate) 05/03/20 1415 05/03/20195605/03/202010 Daily Care Interventions Self-Care Promotion -- BADL personal objects within reach -- Campos Fall Risk History of Falling -- -- 0 Secondary Diagnosis -- -- 15 Ambulatory Aids -- -- 0 Intravenous Therapy/Heparin/Saline Lock -- -- 20 Gait/Transferring -- -- 10 Mental Status -- -- 0 Score -- -- 45 OTHER Campos Fall Risk -- -- High Restraint Interventions Safety Promotion/Fall Prevention -- -- -- Positioning Body Position -- -- -- Activity Activity Type activity adjusted per tolerance;ambulated to bathroom -- -- Activity Assistance Provided assistance, stand-by -- -- Assistive Device Utilized none -- -- 05/03/202224 Daily Care Interventions Self-Care Promotion -- Campos Fall Risk History of Falling -- Secondary Diagnosis -- Ambulatory Aids -- Intravenous Therapy/Heparin/Saline Lock -- Gait/Transferring -- Mental Status -- Score -- OTHER Campos Fall Risk -- Restraint Interventions Safety Promotion/Fall Prevention safety round/check completed Positioning Body Position independent Activity Activity Type -- Activity Assistance Provided -- Assistive Device Utilized -- * Plan of Care - Maame Ellington RN - 05/03/2020 4:40 PM EDT Problem: Patient Care Overview Goal: Plan of Care Review Outcome: Ongoing (Interventions Implemented as Appropriate) 05/01/2055805/03/20 08 Coping/Psychosocial Plan Of Care Reviewed With -- patient Plan of Care Review Progress progress toward functional goals as expected -- OUTCOME EVALUATION NOTE: OUTCOME SUMMARY: Patient A&Ox4, calm and cooperative. VSS, on RA, denies pain. FS q4 hours maintained per orders. BM x1 today. Patient refused senna/miralax, stating I go regular and don't need them. EGD performed today, per report no current bleeding. Hemogram obtained, hgb 8.7. Patient on [facility]/carb controlled level 2 diet. IV mag 2g infused per orders. Drain care/flush performed per orders. Both drain dressings c/d/i. Arron drain producing green/brown fluid, and hepatic draining scant serosanguinous fluid. Patient SBA, up to chair for dinner. Patient able to make needs known, will CTM and notify MD ofany changes. PLAN MOVING FORWARD: Drain care FS q4 hours Monitor labs Monitor for bleeding Discharge planning INDIVIDUALIZED FALL PREVENTION INTERVENTIONS: Patient-specific fall risk factors per assessment: [current deficits]: IV site, O2 monitor, drains,generalized weakness, unfamiliar environment Assistance [level of assistance required for transfers and ambulation]: SBA Supervision [direct monitoring required during toileting and ADLs]: Hands on Surveillance [continuous indirect monitoring]: Masimo, purposeful rounding, room near unit station,call light in reach Patient-specific fall prevention interventions for sensory deficits provided, if applicable: [X] N/A CPG GOAL OUTCOME EVALUATION: * Plan of Care - Jeevan Curiel RN - 05/03/2020 1:30 AM EDT Problem: Patient Care Overview Goal: Plan of Care Review Outcome: Ongoing (Interventions Implemented as Appropriate) 05/01/2055805/02/202028 Coping/Psychosocial Plan Of Care Reviewed With -- patient Plan of Care Review Progress progress toward functional goals as expected -- OUTCOME EVALUATION NOTE: ?? OUTCOME SUMMARY: Shannan Tito Chaudhary's vital signs stable. Patient is Alert. Oriented to person, place, time and situation. Pleasant. Drains managed, SIS flushed, limited output. Voiding well. No complaints. No acute events. Resting comfortably at this time. Slight drop in H&H-- provider aware. Plan is NPO tonightfor EGD in am. No stools overnight. PLAN MOVING FORWARD: Continue assessment of patient primary problem, monitor for vital sign changes, update care team (MD) of changes/as needed. EGD in am. Encourage mobility as safe Drain management Plan DC INDIVIDUALIZED FALL PREVENTION INTERVENTIONS: Patient-specific fall risk factors per assessment: [current deficits]: Muscle weakness, and see Campos fall risk Assistance [level of assistance required for transfers and ambulation]: partial assistance Supervision [direct monitoring required during toileting and ADLs]: Standby, Assist: Min with no device Surveillance [continuous indirect monitoring]: Room near nurses [facility] Patient-specific fall prevention interventions for sensory deficits provided, if applicable: [X] N/A Goal: Fall Prevention-Safe Patient Handling Outcome: Ongoing (Interventions Implemented as Appropriate) 05/02/20182405/02/20202805/03/20 0011 Daily Care Interventions Self-Care Promotion -- BADL personal objects within reach -- Campos Fall Risk History of Falling -- 0 -- Secondary Diagnosis -- 15 -- Ambulatory Aids -- 0 -- Intravenous Therapy/Heparin/Saline Lock -- 20 -- Gait/Transferring -- 10 -- Mental Status -- 0 -- Score -- 45 -- OTHER Campos Fall Risk -- High -- Restraint Interventions Safety Promotion/Fall Prevention -- -- safety round/check completed;fall prevention program maintained Positioning Body Position -- -- independent Activity Activity Type -- -- ambulated to bathroom Activity Assistance Provided -- -- assistance, stand-by Assistive Device Utilized none -- -- * Plan of Care - Toshia Petty RN - 05/02/2020 5:43 PM EDT Problem: Patient Care Overview Goal: Plan of Care Review Outcome: Ongoing (Interventions Implemented as Appropriate) 05/01/20 0559 05/02/20 0800 Coping/Psychosocial Plan Of Care Reviewed With -- patient Plan of Care Review Progress progress toward functional goals as expected -- OUTCOME EVALUATION NOTE: OUTCOME SUMMARY: Pt A+O x4. VSS. Pt had loose black BM this AM, heme tested +, Pt states this is 3 rd BM, MD notified of stool and heme + results. Pt NPO at [place] for EGD tmr. Pt denies abdominal pain, nausea. Pt son into visit this afternoon.Executing the patient centered plan of care. Encouraging ambulation. Patientcalm and cooperative throughout shift. Will continue to monitor, assess for and address comfort needs, ensure safety, and notify MD of any changes. PLAN MOVING FORWARD: Pain management Encourage repositioning and mobility as tolerated Monitor respiratory status Monitor I/O's Encourage ADL's Monitor BG and labs Skin care and monitoring Encourage/support family involvement Discharge planning INDIVIDUALIZED FALL PREVENTION INTERVENTIONS: Patient-specific fall risk factors per assessment: [current deficits]: weakness, unfamiliar environment, IV tubing Assistance [level of assistance required for transfers and ambulation]: 1 person assist w/ walker Supervision [direct monitoring required during toileting and ADLs]: Able to reliably summons for assistance Surveillance [continuous indirect monitoring]: Purposeful rounding, room near nsg station, call light within reach, bed/chair alarm, masimo on Patient-specific fall prevention interventions for sensory deficits provided, if applicable: As above CPG GOAL OUTCOME EVALUATION: Continue goals of care * Consult Note - Brigitte Graf MD - 05/02/2020 2:33 PM EDT GASTROENTEROLOGY & HEPATOLOGY CONSULTATION Initial Consult Note Requesting Provider: Milagros Velazquez MD REASON FOR CONSULTATION Melena, anemia HISTORY OF PRESENT ILLNESS Shannan Chaudhary is a 79 y.o. F with hx of dm2, moderate , ascvd s/p ISIAH to LAD and RCA on 04/21/20 now on DAPT, afib on Eliquis, who developed acute cholecystitis on 04/28/20 s/p percutaneous cholecystostomy, course c/b hepatic abscess s/p SIS drain placement, who is now having a downtrending H/H with newly noted dark stools. Eliquis was held today, continues on DAPT. Patient says that she really noted her dark stool in the last 2 days, associated with increased stool frequency. She did not notice anything like this prior to her hospitalization and has never had ahistory of GI bleeding. Never had an EGD, has had 2 prior normal colonoscopies (thinks last was 8-10 years ago). At home she would use aleve very occasionally but no often. She denies any cp, sob, n/v, abdominal pain, or brbpr. ROS: 10 systems reviewed and positive for those in HPI, otherwise negative PAST MEDICAL/SURGICAL HISTORY: Past Medical History: Diagnosis Date ??? Diabetes ??? Severe aortic stenosis MEDICATIONS ??? pantoprazole 40 mg Intravenous BID ??? sodium chloride 0.9 % (flush) 5 mL Intravenous BID ??? losartan 25 mg Oral Daily ??? melatonin 6 mg Oral Nightly ??? amoxicillin-clavulanate 1 tablet Oral BID ??? metoprolol succinate XL 300 mg Oral Nightly ??? rosuvastatin 20 mg Oral QPM ??? AMIOdarone 200 mg Oral BID ??? aspirin 81 mg Oral Daily ??? clopidogreL 75 mg Oral Daily ??? acetaminophen 1,000 mg Oral Q8H ??? polyethylene glycoL (MIRALAX) oral powder 17 g Oral Daily ??? senna-docusate 2 tablet Oral BID ??? sodium chloride 0.9 % (flush) 5 mL Intravenous BID ??? insulin lispro 1-4 Units Subcutaneous Q4H BASIL ??? insulin glargine 25 Units Subcutaneous Nightly sodium chloride 0.9 % (flush), lidocaine, labetaloL, bisacodyl EC, sodium chloride 0.9 % (flush), oxyCODONE, glucose 40% oral geL OR dextrose 10% OR glucagon (human recombinant) ALLERGIES [...] file Gets together: Not on file Attends taoism service: Not on file Active member of [...] Narrative ??? Not on file FAMILY HISTORY No family history on file. Vitals: 05/02/20 0420 05/02/20 0747 05/02/20 0849 05/02/20 1134 BP: 130/49 128/51 127/49 BP Location (NBP): Left arm Left arm Left arm Patient Position: Lying Lying Lying Pulse: 56 Resp: 16 18 Temp: 36.2 ??C (97.2 ??F) 36.4 ??C (97.5 ??F) 36.4 ??C (97.6 ??F) TempSrc: Oral Oral Oral SpO2: 96% 95% 95% 97% Weight: Height: PHYSICAL EXAM GENERAL: No acute distress, alert and oriented HEENT: AT/NC, sclerae anicteric, moist mucous membranes CHEST: CTA CARDIAC: RRR, normal S1/S2, no appreciable murmurs ABDOMEN: Soft, normoactive bowel sounds, non-tender, non-distended, SIS drain with scant amount of bilious fluid, cholecystostomy drain also with bilious green fluid EXT: Warm, no edema NEURO: Grossly intact, moves all extremities SKIN: No jaundice LABS: Lab Results Component Value Date Sodium 139 05/02/2020 Potassium 4.0 05/02/2020 Chloride 105 05/02/2020 CO2 23 05/02/2020 BUN 28 (H) 05/02/2020 Creatinine 0.78 05/02/2020 Glucose Lvl 164 05/02/2020 CBC Lab Results Component Value Date WBC 13.9 (H) 05/02/2020 Hemoglobin 8.9 (L) 05/02/2020 Hematocrit 27.5 (L) 05/02/2020 Platelets 405 (H) 05/02/2020 LFT's Lab Results Component Value Date Alk Phos 130 (H) 05/02/2020 AST 9 05/02/2020 Albumin 3.0 (L) 05/02/2020 Total Bilirubin 0.4 05/02/2020 ALT 10 05/02/2020 Total Protein 5.9 (L) 05/02/2020 IMAGING: Reviewed in [facility] CT AP 04/27/20: 1. There is a new fluid collection between the liver and diaphragm as noted above this is consistent with some diaphragmatic abscess. There is a right-sided subpulmonic effusion as well. 2. Small left effusion. 3. 9 mm homogeneous hypodensity in the spleen with Hounsfield units of 10. These are benign imaging features and no follow-up is required per ACR incidental findings committee White paper of 2013. 4. Free fluid in the abdomen and pelvis, greatest in the pelvis. ENDOSCOPY: Reviewed in [facility] IMPRESSION: 79 y.o. F with hx of dm2, moderate , ascvd s/p ISIAH to LAD and RCA on 04/21/20 now on DAPT, afib onEliquis, who developed acute cholecystitis on 04/28/20 s/p percutaneous cholecystostomy, course c/b hepatic abscess s/p SIS drain placement, who is now having a downtrending H/H with newly noted dark stools. Eliquis was held today, continues on DAPT. She is certainly at increased risk for GI bleeding while on triple therapy, holding Eliquis will behelpful. Etiologies of melena could PUD, avm, dieulafoy, gastritis/esophagitis. Without blood in her external drains and with normal T bili, unlikely biliary source of blood loss from recent drain placement. Will require further evaluation with EGD. Unfortunately she just ate lunch today so cannot perform this safely today. RECOMMENDATIONS: - Active T+S - Large bore IV access - Trend CBC q12h and transfuse for goal Hgb > 8 - Agree with holding eliquis if able - Management of DAPT per cardiology - Continue protonix 40 mg IV BID - Clear liquid diet today - NPO at midnight - Plan for EGD with anesthesia support tomorrow The plan as outlined above was discussed with Dr. Graf. Mauro Patel MD Gastroenterology Fellow #[id number] Attending Addendum: I interviewed and examined the patient with Dr. Patel on rounds. I confirm the history and sanchez physical findings outlined in this note. The assessment and plan were formulated in discussion with me at the time of this encounter, and I agree with them as documented. Brigitte Graf MD Gastroenterology and hepatology Pager: [phone] * Plan of Care - Jeevan Curiel RN - 05/02/2020 1:36 AM EDT Problem: Patient Care Overview Goal: Plan of Care Review Outcome: Ongoing (Interventions Implemented as Appropriate) 05/01/2059 05/01/202018 Coping/Psychosocial Plan Of Care Reviewed With -- patient Plan of Care Review Progress progress toward functional goals as expected -- OUTCOME EVALUATION NOTE: OUTCOME SUMMARY: Shannan Tito Chaudhary's vital signs stable. Patient is Alert. Oriented to person, place, time and situation. Pleasant. Drains managed, SIS flushed, limited output. Voiding well. No complaints. No acute events. Resting comfortably at this time. Insulin given, high BGLs overnight. PLAN MOVING FORWARD: Continue assessment of patient primary problem, monitor for vital sign changes, update care team (MD) of changes/as needed. Encourage mobility as safe Drain management Plan DC Diabetes/carb education INDIVIDUALIZED FALL PREVENTION INTERVENTIONS: Patient-specific fall risk factors per assessment: [current deficits]: Muscle weakness, and see Campos fall risk Assistance [level of assistance required for transfers and ambulation]: partial assistance Supervision [direct monitoring required during toileting and ADLs]: Standby, Assist: Min with no device Surveillance [continuous indirect monitoring]: Room near nurses [facility], [facility] Patient-specific fall prevention interventions for sensory deficits provided, if applicable: [X] N/A CPG GOAL OUTCOME EVALUATION: Goals of care plan--ongoing Goal: Fall Prevention-Safe Patient Handling Outcome: Ongoing (Interventions Implemented as Appropriate) 05/01/20 0211 05/01/20 1000 05/01/202018 Daily Care Interventions Self-Care Promotion -- -- BADL personal objects within reach;independence encouraged Campos Fall Risk History of Falling -- -- 0 Secondary Diagnosis -- -- 15 Ambulatory Aids -- -- 0 Intravenous Therapy/Heparin/Saline Lock -- -- 20 Gait/Transferring -- -- 0 Mental Status -- -- 0 Score -- -- 35 OTHER Campos Fall Risk -- -- Med Restraint Interventions Safety Promotion/Fall Prevention -- -- -- Positioning Body Position -- -- -- Activity Activity Type -- ambulated to bathroom -- Activity Assistance Provided -- assistance, stand-by -- Assistive Device Utilized front-wheel walker -- -- 05/01/20 2200 Daily Care Interventions Self-Care Promotion -- Campos Fall Risk History of Falling -- Secondary Diagnosis -- Ambulatory Aids -- Intravenous Therapy/Heparin/Saline Lock -- Gait/Transferring -- Mental Status -- Score -- OTHER Campos Fall Risk -- Restraint Interventions Safety Promotion/Fall Prevention safety round/check completed;nonskid shoes/slippers when out of bed;fall prevention program maintained Positioning Body Position independent Activity Activity Type -- Activity Assistance Provided -- Assistive Device Utilized -- * Plan of Care - Toshia Petty RN - 05/01/2020 5:51 PM EDT Problem: Patient Care Overview Goal: Plan of Care Review Outcome: Ongoing (Interventions Implemented as Appropriate) 05/01/20 0559 05/01/20 0900 Coping/Psychosocial Plan Of Care Reviewed With -- patient Plan of Care Review Progress progress toward functional goals as expected -- OUTCOME EVALUATION NOTE: OUTCOME SUMMARY: Pt A+O x4. VSS. Pt OOB to chair for meals. Pt drains with small amount of output. Pt with no c/o pain today. Pt having BM's and voiding good amounts. Executing the patient centered plan of care. Encouraging ambulation. Patient calm and cooperative throughout shift. Will continue to monitor, assess for and address comfort needs, ensure safety, and notify MD of any changes. PLAN MOVING FORWARD: Pain management Encourage repositioning and mobility as tolerated Monitor respiratory status Monitor I/O's Encourage ADL's Monitor BG Skin care and monitoring Encourage/support family involvement Discharge planning INDIVIDUALIZED FALL PREVENTION INTERVENTIONS: Patient-specific fall risk factors per assessment: [current deficits]: weakness, hx of fall, IV tubing, drains with tubing, unfamiliar environment Assistance [level of assistance required for transfers and ambulation]: 1 person assist w/ walker Supervision [direct monitoring required during toileting and ADLs]: Able to reliably summons for assistance Surveillance [continuous indirect monitoring]: Purposeful rounding, room near nsg station, call light within reach, bed/chair alarm, masimo on Patient-specific fall prevention interventions for sensory deficits provided, if applicable: As above CPG GOAL OUTCOME EVALUATION: Continue goals of care * Plan of Care - Sandy Subramanian RN - 05/01/2020 6:37 AM EDT Problem: Patient Care Overview Goal: Plan of Care Review Outcome: Ongoing (Interventions Implemented as Appropriate) 05/01/20 0559 Coping/Psychosocial Plan Of Care Reviewed With patient Plan of Care Review Progress progress toward functional goals as expected OUTCOME EVALUATION NOTE: OUTCOME SUMMARY: Pt A+O x4. VSS and on RA, afebrile. Able to make needs known. C/o 4/10 pain in abdomen at drain site, managed with scheduled. Tylenol. Drain dressing clean, dry, intact. SIS drain flushed Q8 per orderwith minimal serosanguinous drainage. Arron drain with moderate amounts of yellow, brown output to drainage bag. Q4 fingersticks maintained. Pt had a small soft BM overnight. Patient calm and cooperative throughout shift, and rested with eyes closed most of the night. Will continue to monitor and notify team of any changes. PLAN MOVING FORWARD: Drain care Q4 finger sticks Pain management Discharge planning INDIVIDUALIZED FALL PREVENTION INTERVENTIONS: Patient-specific fall risk factors per assessment: [current deficits]: Drains, unfamiliar environment Assistance [level of assistance required for transfers and ambulation]: SBA w/ walker Supervision [direct monitoring required during toileting and ADLs]: Eyes on Surveillance [continuous indirect monitoring]: Purposeful rounding, room near nsg station, call light within reach, bed/chair alarm, masimo on Patient-specific fall prevention interventions for sensory deficits provided, if applicable: Na CPG GOAL OUTCOME EVALUATION: Continue goals of care * Plan of Care - Reji Johnson RN - 04/29/2020 11:31 PM EDT Problem: Patient Care Overview Goal: Plan of Care Review Outcome: Ongoing (Interventions Implemented as Appropriate) 04/29/20 2033 Coping/Psychosocial Plan Of Care Reviewed With patient Plan of Care Review Progress progress toward functional goals as expected OUTCOME EVALUATION NOTE: OUTCOME SUMMARY: Patient alert, oriented, able to make needs know, dressing to drains CDI, pain managed with scheduled tylenol, prn oxy with good affect per patient report, ambulation with sba, patient denies new or worsening sx, reviewed plan of care, patient in agreement, will continue to monitor. PLAN MOVING FORWARD: -antibx -sx management -pain control -monitor SIS, IR drains -promote independence -DC planning INDIVIDUALIZED FALL PREVENTION INTERVENTIONS: Patient-specific fall risk factors per assessment: [current deficits]: Unfamiliar environment, advanced age, deconditioning, recent prolonged illness Assistance [level of assistance required for transfers and ambulation]: SBA for safety while recovering Supervision [direct monitoring required during toileting and ADLs]: Patient is independent with objects in reach Surveillance [continuous indirect monitoring]: Purposeful rounding, room near unit station, call light in reach, bed alarm set, masimo Patient-specific fall prevention interventions for sensory deficits provided, if applicable: CPG GOAL OUTCOME EVALUATION: Goal: Fall Prevention-Safe Patient Handling Outcome: Ongoing (Interventions Implemented as Appropriate) 04/28/20202904/29/20212904/29/20 220 Daily Care Interventions Self-Care Promotion independence encouraged -- -- Campos Fall Risk History of Falling -- 0 -- Secondary Diagnosis -- 15 -- Ambulatory Aids -- 0 -- Intravenous Therapy/Heparin/Saline Lock -- 20 -- Gait/Transferring -- 0 -- Mental Status -- 0 -- Score -- 35 -- OTHER Campos Fall Risk -- Med -- Restraint Interventions Safety Promotion/Fall Prevention -- -- safety round/check completed Positioning Body Position -- -- independent Activity Activity Type activity adjusted per tolerance;ambulated to bathroom -- -- Activity Assistance Provided assistance, 1 person -- -- Assistive Device Utilized none -- -- Goal: Infection Control Outcome: Ongoing (Interventions Implemented as Appropriate) 04/29/20212904/29/202199 Safety Interventions Isolation Precautions -- standard precautions maintained Infection Prevention -- rest/sleep promoted Coping Strategies Supportive Measures relaxation techniques promoted -- * Consult Note - Veda Avila DO - 04/29/2020 6:23 PM EDT Images from the original note were not included. INFECTIOUS DISEASE CONSULTATION NOTE Patient ID: Shannan Chaudhary Room: [address] [place] [address] Reason for Consult: liver abcess Consulting Service: Hospital Medicine Consulting Attending: Dale Dash MD Admission Date: 04/19/2020 History of Present Illness: 79 y.o. female with a history of DM2 (A1C 8.5%), severe who was admitted for sepsis secondary tocholecystitis. Due to her severe she was not a surgical candidate at her institution so was sent to [facility] for evaluation. She underwent pre-operative cardiac angiogram on 04/21/20 and was noted to have CAD with 2 ISIAH placed to RCA. Cholecystostomy tube was placed by IR on 04/22/20 since surgical intervention needed to he held until she can safely discontinue DAPT. On 04/24 she had worsening respiratory status and developed new onset Afib with RVR. Respiratory status improved with medical therapy but she continued to have an uptrending leukocytosis. On 04/27 abdominal imaging was obtained and showed new liver abscess on CT scan. SIS drain was placed in liver fluid collection on 04/28. No blood cultures were obtained on this admission and none at OSH. Fluid from cholecystostomy tube showed rare Gram negative rods on Gram stain and grew french- sensitive Raoultella ornithinolytica (Klebsiella ornithinolytica). Culture from liver abscess drain grew one colony of Raoultella ornithinolytica (Klebsiella ornithinolytica). She has been on Piperacillin-Tazobactam 3.375g IV q8h since admission (minus one day where it was stopped) and is clinically improving. Review of Systems: Pertinent positives and negatives noted in HPI. 14 point ROS otherwise negative Past Medical History: Past Medical History: Diagnosis Date ??? Diabetes ??? Severe aortic stenosis Past Surgical History: Past Surgical History: Procedure Laterality Date ??? CT PERITONEAL DRAINAGE 04/28/2020 CT Guided Drain Peritoneal 04/28/2020 [facility] RAD CAT SCAN ??? HYSTERECTOMY, VAGINAL ??? IR CHOLECYSTOSTOMY TUBE PLACEMENT 04/22/2020 IR Cholecystostomy Tube Placement 04/22/2020 Jos Collins, DO [facility] INTERVENTIONL RAD Medications: ??? apixaban (Eliquis) tablet 5 mg ??? metroNIDAZOLE (Flagyl) tablet 500 mg ??? ciprofloxacin (Cipro) tablet 500 mg ??? metoprolol succinate XL (Toprol-XL) tablet 300 mg ??? labetalol (NORMODYNE,TRANDATE) injection 20 mg ??? rosuvastatin (Crestor) tablet 20 mg ??? losartan (Cozaar) tablet 100 mg ??? pantoprazole EC (Protonix) tablet 40 mg ??? AMIOdarone (Cordarone; Pacerone) tablet 200 mg ??? aspirin chewable tablet 81 mg ??? clopidogreL (Plavix) tablet 75 mg ??? acetaminophen (Tylenol) tablet 1,000 mg ??? bisacodyl EC (Dulcolax) tablet 10 mg ??? polyethylene glycoL (Miralax) packet 17 g ??? senna-docusate (Pericolace) 8.6-50 mg per tablet 2 tablet ??? sodium chloride 0.9 % (flush) flush 5 mL ??? sodium chloride 0.9 % (flush) flush 5-20 mL ??? oxyCODONE (Roxicodone) tablet 5 mg ??? glucose (GLUTOSE) 40% oral geL OR dextrose 10% infusion OR glucagon (human recombinant)injection SolR 1 mg ??? POCT Fingerstick Glucose AND insulin lispro (HumaLOG) VIAL injection 1-4 Units ??? insulin glargine VIAL injection 25 Units Allergies: No Known Allergies Family History: Grandmother with heart problems No immunocompromising conditions Social History: Lives alone in [place], [place] but has family members who live near by No pets at home Social History Tobacco Use ??? Smoking status: Never Smoker ??? Smokeless tobacco: Never Used Substance Use Topics ??? Alcohol use: Yes Comment: occassional ??? Drug use: Never Physical Exam: Last value Range last 24 hrs Temperature Temp: 37.2 ??C (99 ??F) Temp: [37.1 ??C (98.8 ??F)-37.6 ??C (99.7 ??F)] Heart Rate Heart Rate: 58 Heart Rate: [58-73] Blood Pressure BP: 115/43 BP: (115-151)/(43-90) Respiratory Rate Resp: 20 Resp: [20-28] SpO2 SpO2: 97 % SpO2: [93 %-97 %] General: no acute distress HEENT: no scleral icterus, moist oral mucosa, no oral thrush Cardiovascular: irregular rhythm, regular rate, mid to late peaking systolic ejection murmur Pulmonary: clear to auscultation bilaterally, no crackles, no wheeze Abdomen: normal bowel sounds, mild tenderness near drain sites. Dressing is clean, dry and intact. Drain fluids do not appear purulent Ext: no peripheral edema Skin: no rashes noted Neuro: alert and oriented, no signs of encephalopathy Psych: normal affect and mood Lines/Tubes/Drains: Peripheral IV Line - Single Lumen 04/20/20 0515 cephalic vein (lateral side of arm), right (Active) Drain/Device Site 04/22/20 1618 Right upper abdomen pigtail (Active) Drain/Device Site 04/28/20 0956 Right upper abdomen collapsible closed device (Active) Laboratory: Recent Labs 04/29/2041604/28/20 0405 04/27/20 0441 WBC 18.0* 14.8* 15.1* HGB 9.8* 10.5* 10.3* HCT 30.1* 32.5* 32.1* PLATELET 397* 421* 422* Recent Labs 04/29/2041604/28/20 0405 04/27/20 0441 NA 136 137 138 K 3.9 3.5 3.5 CL 103 105 103 CO2 22 21* 23 BUN 28* 16 12 CREATININE 0.96 0.80 0.63* Recent Labs 04/29/2041604/28/20 0405 04/27/20 0441 AST 15 12 12 ALT 16 12 13 ALKPHOS 177* 201* 230* BILITOT 0.5 0.4 0.5 Microbiology: Microbiology Results (Last 30 days) Procedure Component Value Units Date/Time Body Fluid Culture, Aerobic & Anaerobic Fluid [[id number]] (Abnormal) Collected: 04/28/20 1000 Lab Status: Preliminary result Specimen: Fluid Updated: 04/29/20 1409 Body Fluid Culture, Aerobic [[id number]] (Abnormal) Collected: 04/28/20 1000 Lab Status: Preliminary result Specimen: Fluid Updated: 04/29/20 1316 Body Fluid Culture One colony of Raoultella ornithinolytica (Klebsiella ornithinolytica) Gram Stain -- Few Neutrophils seen No microorganisms seen. Anaerobic Culture [[id number]] Collected: 04/28/20 1000 Lab Status: Preliminary result Specimen: Fluid Updated: 04/29/20 1409 Anaerobic Culture No anaerobic organisms isolated to date Body Fluid Culture, Aerobic & Anaerobic Bile [[id number]] (Abnormal) Collected: 04/22/20 1550 Lab Status: Final result Specimen: Bile Updated: 04/26/20 1544 Body Fluid Culture, Aerobic [[id number]] (Abnormal) (Susceptibility) Collected: 04/22/20 1550 Lab Status: Final result Specimen: Bile Updated: 04/26/20 1358 Body Fluid Culture Many Raoultella ornithinolytica (Klebsiella ornithinolytica) Gram Stain -- Few Neutrophils seen Rare Gram Negative Rods seen Susceptibility Raoultella ornithinolytica (klebsiella ornithinolytica) VITEK 2 METHOD Amikacin Sensitive Ampicillin + Sulbactam Sensitive Aztreonam Sensitive Ceftazidime Sensitive Ceftriaxone Sensitive Ertapenem Sensitive Gentamicin Sensitive Levofloxacin Sensitive [1] Meropenem Sensitive Piperacillin/Tazobactam Sensitive Tetracycline Sensitive Tigecycline Sensitive Tobramycin Sensitive Trimethoprim/Sulfa Sensitive [1] Levofloxacin and Ciprofloxacin may not adequately treat infections in critically ill patients even when isolates test susceptible in the laboratory. Contact Infectious Disease before using in critically ill patients. Anaerobic Culture [[id number]] Collected: 04/22/20 1550 Lab Status: Final result Specimen: Bile Updated: 04/26/20 1544 Anaerobic Culture No anaerobic organisms isolated Radiology/Studies/Procedures: 04/27 CT abdomen/pelvis: IMPRESSION An abscess 1. There is a new fluid collection between the liver and diaphragm as noted above this is consistent with some diaphragmatic abscess. There is a right-sided subpulmonic effusion as well. 2. Small left effusion. 3. 9 mm homogeneous hypodensity in the spleen with Hounsfield units of 10. These are benign imaging features and no follow-up is required per ACR incidental findings committee White paper of 2013. 4. Free fluid in the abdomen and pelvis, greatest in the pelvis. Active ID Issue(s): 1. Liver abscess 2. Cholecystitis Impression: Shannan Chaudhary is a 79 y.o. female with acute cholecystitis and newly found liver abscess. Due to her severe and recent cardiac sent placement, surgical intervention could not be done due to the necessity of DAPT continuation. Surgical team is planning for cholecystectomy in 6 weeks. She was also found to have a new liver abscess on this admission and it is unclear what the initial source of this is. Considering both cholecystostomy tube fluid and liver abscess fluid are growing Raoutellaornithinolytica (Klebsiella ornitholytica), she may have had a brief bacteremia when cholecystostomy tube was placed or even prior to that. No previous blood cultures were taken. She also mentioned arecent dental procedure so she may have seeded a bacteremia from a dental source. Considering her overall clinical improvement, she can be transitioned to oral therapy. Recommendations: - Please obtain a set of blood cultures today. She has likely cleared a possible bacteremia considering her clinical improvement, but it may be helpful to have some blood culture data. - Can stop Piperacillin-Tazobactam and change to oral antibiotics with Ciprofloxacin 500mg PO bid +Metronidazole 500mg PO TID to be continued until 48h after liver abscess SIS drain is removed. This patient was discussed with ID attending Dr. Godinez. Recommendations discussed with primarytreating team. Thank you very much for this interesting consult and allowing me to participate in this patient's care. ID will sign off. Please contact us if further consultation required. Veda Avila DO Infectious Diseases Fellow- PGY4 Pager: [phone] 04/29/2020 6:23 PM Associated attestation - Harris Godinez MD - 04/29/2020 11:15 PM EDT ID Attending Addendum: I have seen and examined this patient. I have reviewed and agree with the history, findings, assessment, and plan of care as documented in Dr. Avila's note. The assessment and plan were formulated indiscussion with me. In short, Ms. Chaudhary is a 79y/o F with a history of severe and type 2 DM who was transferred to [facility] on 04/19/20 for cardiology evaluation and surgical planning in the setting of acute cholecystitis. Reviewing her hospital course, she developed Afib with RVR complicated by hypotension and hypoxic respiratory failure on 04/20/20, she was taken to the biological lab technician on 04/21/20 whereshe had a RCA stent placed, she had a cholecystostomy tube placed on 04/22/20 due to the need to postpone cholecystectomy surgery while on dual platelet therapy, and she was then found to have a 5.1 x3.2cm abscess between the liver and the diaphragm on 04/27/20 that was drained by IR on 04/28/20 with aspiration of 40cc of purulent fluid. Interestingly, she reports the onset of band-link upper abdominal pain in the evening following a recent dental filling. This is what led to the identification of her cholecystitis. This raises the question of this procedure somehow being linked. Cultures from both the gallbladder and the liver abscess have grown Raoultella ornithinolytica. This is typically found in water and soil, and it can bepart of the human microbiome in the GI tract. However, there are case reports of healthcare associated infections. Thankfully, her Raoultella species is not multidrug resistant. Therefore, we have recommended ciprofloxacin 500mg PO BID (with the addition of metronidazole 500mg PO TID for the potential of a polymicrobial infection with anaerobes). She should stay on this regimen until her drains are removed (with a drain study done prior to removal to demonstrate collapse of the abscess cavity). She has been afebrile, but she has had a persistent leukocytosis with a WBC count up to 18.0. We have recommended blood cultures to make sure that she is not bacteremic. Harris Godinez MD * Plan of Care - Sherrie Hughes RN - 04/29/2020 5:35 PM EDT Problem: Patient Care Overview Goal: Plan of Care Review Outcome: Ongoing (Interventions Implemented as Appropriate) 04/26/20 1745 04/29/20 0800 Coping/Psychosocial Plan Of Care Reviewed With -- patient Plan of Care Review Progress improving -- OUTCOME EVALUATION NOTE: ?? OUTCOME SUMMARY: ?? Patient A&Ox4, able to make needs known. Arrived to floor at 1600. Denies pain at this time. 2 drains to R abdomen in place. Patient resting in bed with call light in reach. ?? PLAN MOVING FORWARD: ?? Monitor I&O, manage pain, ambulate ?? INDIVIDUALIZED FALL PREVENTION INTERVENTIONS: ?? Patient-specific fall risk factors per assessment: [current deficits]: Hospital environment, IV pole, weakness ?? Assistance [level of assistance required for transfers and ambulation]: 1xAssist ?? Supervision [direct monitoring required during toileting and ADLs]: Hands on ?? Surveillance [continuous indirect monitoring]: masimo ?? Patient-specific fall prevention interventions for sensory deficits provided, if applicable:NA Goal: Individualization & Mutuality Outcome: Ongoing (Interventions Implemented as Appropriate) 04/19/202034 Mutuality/Individual Preferences What Anxieties, Fears or Concerns Do You Have About Your Health or Care? just that things are different What Questions Do You Have About Your Health or Care? none What Information Would Help Us Give You More Personalized Care? none Goal: Fall Prevention-Safe Patient Handling Outcome: Ongoing (Interventions Implemented as Appropriate) 04/28/20202904/29/20 08 Daily Care Interventions Self-Care Promotion independence encouraged -- Campos Fall Risk History of Falling -- 0 Secondary Diagnosis -- 15 Ambulatory Aids -- 0 Intravenous Therapy/Heparin/Saline Lock -- 20 Gait/Transferring -- 0 Mental Status -- 0 Score -- 35 OTHER Campos Fall Risk -- Med Restraint Interventions Safety Promotion/Fall Prevention -- activity supervised Positioning Body Position independent -- Activity Activity Type activity adjusted per tolerance;ambulated to bathroom -- Activity Assistance Provided assistance, 1 person -- Assistive Device Utilized none -- Goal: Infection Control Outcome: Ongoing (Interventions Implemented as Appropriate) 04/29/20 0604/29/20 08 Safety Interventions Isolation Precautions standard precautions maintained -- Infection Prevention barrier precautions utilized;cohorting utilized;equipment surfaces disinfected;environmental surveillance performed;personal protective equipment utilized;rest/sleep promoted -- Coping Strategies Supportive Measures -- active listening utilized Goal: Discharge Needs Assessment Outcome: Ongoing (Interventions Implemented as Appropriate) 04/19/20 18104/20/20 1537 Discharge Needs Assessment Concerns To Be Addressed -- no discharge needs identified Readmission Within The Last 30 Days -- no previous admission in last 30 days Provider Choice List(s) Given -- no Discharge Disposition -- still a patient Living Environment Transportation Available family or friend will provide -- Goal: Interdisciplinary Rounds/Family Conf Outcome: Ongoing (Interventions Implemented as Appropriate) 04/20/20 153 Interdisciplinary Rounds/Family Conf Participants patient;nursing;physician * Plan of Care - Carla Howell RN - 04/29/2020 3:10 AM EDT Problem: Patient Care Overview Goal: Plan of Care Review Outcome: Ongoing (Interventions Implemented as Appropriate) 04/26/20174404/28/202029 Coping/Psychosocial Plan Of Care Reviewed With -- patient Plan of Care Review Progress improving -- OUTCOME EVALUATION NOTE: OUTCOME SUMMARY: Dot is A&Ox4. VSS, see flow sheets for details. Sating 98% on RA throughout the shift. Q8H ABX administered, see MAR. Drains are patent, see MAR for details. PRN and scheduled medications provided adequate pain relief. Up to BR with SBA. Call aguilar in reach. Will continue to monitor. PLAN MOVING FORWARD: VS monitoring, d/c planning. INDIVIDUALIZED FALL PREVENTION INTERVENTIONS: Patient-specific fall risk factors per assessment: [current deficits]: Unfamiliar hospital environment, IV sites, SpO2. Assistance [level of assistance required for transfers and ambulation]: SBA Supervision [direct monitoring required during toileting and ADLs]: Purposeful hourly nursing rounding, call aguilar in use Surveillance [continuous indirect monitoring]: SpO2 Patient-specific fall prevention interventions for sensory deficits provided, if applicable: [X] N/A CPG GOAL OUTCOME EVALUATION: Plan progressing. Goal: Fall Prevention-Safe Patient Handling Outcome: Ongoing (Interventions Implemented as Appropriate) 04/28/20202904/29/20 0200 Daily Care Interventions Self-Care Promotion independence encouraged -- Campos Fall Risk History of Falling 0 -- Secondary Diagnosis 15 -- Ambulatory Aids 0 -- Intravenous Therapy/Heparin/Saline Lock 20 -- Gait/Transferring 0 -- Mental Status 0 -- Score 35 -- OTHER Campos Fall Risk Med -- Restraint Interventions Safety Promotion/Fall Prevention -- activity supervised;nonskid shoes/slippers when out of bed;safety round/check completed Positioning Body Position independent -- Activity Activity Type activity adjusted per tolerance;ambulated to bathroom -- Activity Assistance Provided assistance, 1 person -- Assistive Device Utilized none -- Goal: Infection Control Outcome: Ongoing (Interventions Implemented as Appropriate) 04/28/20202904/29/20 0200 Safety Interventions Isolation Precautions -- standard precautions maintained Infection Prevention -- barrier precautions utilized;environmental surveillance performed;cohortingutilized;equipment surfaces disinfected;personal protective equipment utilized;rest/sleep promoted Coping Strategies Supportive Measures active listening utilized;self-care encouraged;self- reflection promoted;self-responsibility promoted;verbalization of feelings encouraged -- * Plan of Care - Jalil Levi RN - 04/28/2020 3:31 PM EDT Problem: Patient Care Overview Goal: Plan of Care Review Outcome: Ongoing (Interventions Implemented as Appropriate) 04/26/20174404/28/20 08 Coping/Psychosocial Plan Of Care Reviewed With -- patient Plan of Care Review Progress improving -- OUTCOME EVALUATION NOTE: OUTCOME SUMMARY: Patient had a right sided arabella-hepatic drain today and has a SIS nella. Patient's peritoneal drain continurs to put out fluid. PLAN MOVING FORWARD: Cont to monitor INDIVIDUALIZED FALL PREVENTION INTERVENTIONS: Patient-specific fall risk factors per assessment: [current deficits]: decond Assistance [level of assistance required for transfers and ambulation]: standby Supervision [direct monitoring required during toileting and ADLs]: Call aguilar Surveillance [continuous indirect monitoring]: Hourly rounds Patient-specific fall prevention interventions for sensory deficits provided, if applicable: CPG GOAL OUTCOME EVALUATION: Goal: Fall Prevention-Safe Patient Handling Outcome: Ongoing (Interventions Implemented as Appropriate) 04/27/20202904/28/20 0800 Daily Care Interventions Self-Care Promotion independence encouraged -- Campos Fall Risk History of Falling -- 0 Secondary Diagnosis -- 15 Ambulatory Aids -- 0 Intravenous Therapy/Heparin/Saline Lock -- 20 Gait/Transferring -- 0 Mental Status -- 0 Score -- 35 OTHER Campos Fall Risk -- Med Restraint Interventions Safety Promotion/Fall Prevention -- activity supervised Positioning Body Position independent -- Activity Activity Type activity adjusted per tolerance -- Activity Assistance Provided assistance, 1 person -- Assistive Device Utilized none -- Goal: Infection Control Outcome: Ongoing (Interventions Implemented as Appropriate) 04/28/20 0600 04/28/20 0800 Safety Interventions Isolation Precautions standard precautions maintained -- Infection Prevention barrier precautions utilized;cohorting utilized;environmental surveillance performed;equipment surfaces disinfected;personal protective equipment utilized;rest/sleep promoted -- Coping Strategies Supportive Measures -- active listening utilized Goal: Discharge Needs Assessment Outcome: Ongoing (Interventions Implemented as Appropriate) 04/19/20 1810 04/20/20 1537 Discharge Needs Assessment Concerns To Be Addressed -- no discharge needs identified Readmission Within The Last 30 Days -- no previous admission in last 30 days Provider Choice List(s) Given -- no Discharge Disposition -- still a patient Living Environment Transportation Available family or friend will provide -- Goal: Interdisciplinary Rounds/Family Conf Outcome: Ongoing (Interventions Implemented as Appropriate) 04/20/20 1537 Interdisciplinary Rounds/Family Conf Participants patient;nursing;physician Problem: Skin Integrity Impairment, Risk/Actual (Adult) Goal: Identify Related Risk Factors and Signs and Symptoms Related risk factors and signs and symptoms are identified upon initiation of Human Response Clinical Practice Guideline (CPG) Outcome: Ongoing (Interventions Implemented as Appropriate) 04/26/20 1745 Skin Integrity Impairment, Risk/Actual Skin Integrity Impairment, Risk/Actual: Related Risk Factors age extremes;metabolic imbalance Goal: Skin Integrity/Wound Healing Patient will demonstrate the desired outcomes by discharge/transition of care. Outcome: Ongoing (Interventions Implemented as Appropriate) 04/26/20 1745 Skin Integrity Impairment, Risk/Actual (Adult) Skin Integrity/Wound Healing making progress toward outcome * Plan of Care - Carla Howell RN - 04/28/2020 4:23 AM EDT Problem: Patient Care Overview Goal: Plan of Care Review Outcome: Ongoing (Interventions Implemented as Appropriate) 04/26/20 1745 04/27/202029 Coping/Psychosocial Plan Of Care Reviewed With -- patient Plan of Care Review Progress improving -- OUTCOME EVALUATION NOTE: OUTCOME SUMMARY: Dot is A&Ox4, NSR on tele. VSS, see flow sheets for details. She denies CP and SOB throughout the night. Resting between the bed and chair throughout the night. Up to BR with SBA. Choley drain patent, see flow sheets for output. Call aguilar in use. Will continue to monitor. PLAN MOVING FORWARD: D/c planning as appropriate, VS monitoring. INDIVIDUALIZED FALL PREVENTION INTERVENTIONS: Patient-specific fall risk factors per assessment: [current deficits]: Unfamiliar hospital environment, tele leads, IV sites. Assistance [level of assistance required for transfers and ambulation]: SB Supervision [direct monitoring required during toileting and ADLs]: Purposeful hourly nursing rounding, call aguilar in use.0 Surveillance [continuous indirect monitoring]: Telemetry. Patient-specific fall prevention interventions for sensory deficits provided, if applicable: [X] N/A CPG GOAL OUTCOME EVALUATION: Plan progressing. Goal: Fall Prevention-Safe Patient Handling Outcome: Ongoing (Interventions Implemented as Appropriate) 04/27/20202904/28/20 032 Daily Care Interventions Self-Care Promotion independence encouraged -- Campos Fall Risk History of Falling 0 -- Secondary Diagnosis 15 -- Ambulatory Aids 0 -- Intravenous Therapy/Heparin/Saline Lock 20 -- Gait/Transferring 0 -- Mental Status 0 -- Score 35 -- OTHER Campos Fall Risk Med -- Restraint Interventions Safety Promotion/Fall Prevention -- activity supervised;nonskid shoes/slippers when out of bed;safety round/check completed Positioning Body Position independent -- Activity Activity Type activity adjusted per tolerance -- Activity Assistance Provided assistance, 1 person -- Assistive Device Utilized none -- Goal: Infection Control Outcome: Ongoing (Interventions Implemented as Appropriate) 04/27/20202904/28/20 0324 Safety Interventions Isolation Precautions -- standard precautions maintained Infection Prevention -- barrier precautions utilized;cohorting utilized;environmental surveillance performed;equipment surfaces disinfected;personal protective equipment utilized;rest/sleep promoted Coping Strategies Supportive Measures active listening utilized;self-care encouraged;self- reflection promoted;self-responsibility promoted;verbalization of feelings encouraged -- * Plan of Care - Patricia Rodríguez RN - 04/27/2020 3:47 AM EDT OUTCOME EVALUATION NOTE: OUTCOME SUMMARY: Pt had a good shift. A/O, VSS highest temp being 37.7, see flow sheet. Denies CP or SOB. No other complaints of any discomfort. SR on tele, see scanned docs. Abd dressing c/d/i. Hypertensive throughout shift MD madsenood aware. No other significant events. Will continue to monitor. PLAN MOVING FORWARD: Possible D/c today INDIVIDUALIZED FALL PREVENTION INTERVENTIONS: Patient-specific fall risk factors per assessment: [current deficits]: IV, tele, generalized weakness Assistance [level of assistance required for transfers and ambulation]: SBA Supervision [direct monitoring required during toileting and ADLs]: Eyes on Surveillance [continuous indirect monitoring]: Tele, call aguilar within reach, purposeful rounding Patient-specific fall prevention interventions for sensory deficits provided, if applicable: [X] No CPG GOAL OUTCOME EVALUATION: * Plan of Care - Ren Philippe RN - 04/26/2020 5:51 PM EDT Problem: Patient Care Overview Goal: Plan of Care Review Outcome: Ongoing (Interventions Implemented as Appropriate) 04/26/20 4985 Coping/Psychosocial Plan Of Care Reviewed With patient Plan of Care Review Progress improving OUTCOME EVALUATION NOTE: OUTCOME SUMMARY: A+O x4. Denies Cp, denies SOB, but visibly dyspneic after ambulation around unit. Pt remains in NSR with elevated pressures throughout day. No Labetolol administered. Zosyn administered and then D/C. Pt demonstrates improved mobility as well as improved mentation, better demeanor than on previous shifts. Arron drain bag continues to collect greenish fluid. Surgery has explained these volumes and characteristics are normal. PLAN MOVING FORWARD: Likely D/C on Sunday with drain. Monitor WBC for increase. Several small BMs, loose, brown in color. INDIVIDUALIZED FALL PREVENTION INTERVENTIONS: Patient-specific fall risk factors per assessment: [current deficits]: ECG wires, IVsites, Arron drain in place Assistance [level of assistance required for transfers and ambulation]: 1+ walker Supervision [direct monitoring required during toileting and ADLs]: IND Surveillance [continuous indirect monitoring]: Telemetry, call aguilar in reach, freq rounding Patient-specific fall prevention interventions for sensory deficits provided, if applicable: Yes CPG GOAL OUTCOME EVALUATION: Ongoing * Consult Note - Shelly Marques RN - 04/26/2020 10:51 AM EDT Shannan Chaudhary was seen today by Cardiac Rehabilitation for: NSTEMI, PCI to RCA Activity evaluation - Patient has been evaluated by PT. Educational packet regarding CAD, cardiac risk factors, and managing angina given to the patient. Reviewed managing angina /use of sl nitroglycerin. Mediterranean diet guidelines briefly reviewed. Patient is following a diabetic diet at home. Given parameters for home exercise. She likes to swim, but has been unable to recently because the pool is closed. Instead, she has been taking short walks. Participation in an outpatient cardiac rehabilitation program at [facility] was discussed. Patient agrees to a referral to this program. The referral will be sent at discharge and the patient should be contacted by the Program within 1- 2 weeks from discharge. * Plan of Care - Patricia Rodríguez RN - 04/26/2020 2:58 AM EDT OUTCOME EVALUATION NOTE: OUTCOME SUMMARY: Shannan had a good shift. A/Ox4, VSS, afebrile,, see flow sheet. Denies CP or SOB. No other complaints of any discomfort. NSR on tele, see scanned docs. Slept well in chair. PRN Labetalol given once for SBPs in the 190s with good effect. Drain had~140cc out. Dressing c/d/i. IV abx continued as ordered, see MAR. Slept well in between care. No other significant events.Will continue to monitor. PLAN MOVING FORWARD: Monitor WBC Abd CT? OP follow up in 6 weeks INDIVIDUALIZED FALL PREVENTION INTERVENTIONS: Patient-specific fall risk factors per assessment: [current deficits]: IV, tele, generalized weakness Assistance [level of assistance required for transfers and ambulation]: x1 w/ fww Supervision [direct monitoring required during toileting and ADLs]: Eyes on Surveillance [continuous indirect monitoring]: Tele, call aguilar within reach, purposeful rounding Patient-specific fall prevention interventions for sensory deficits provided, if applicable: [X] No CPG GOAL OUTCOME EVALUATION: * Plan of Care - Ren Philippe RN - 04/25/2020 1:55 PM EDT Problem: Patient Care Overview Goal: Plan of Care Review Outcome: Ongoing (Interventions Implemented as Appropriate) 04/25/20 1352 Coping/Psychosocial Plan Of Care Reviewed With patient Plan of Care Review Progress improving OUTCOME EVALUATION NOTE: OUTCOME SUMMARY: A+O x4. Denies CP, denies SOB. NSR with dep ST. Pt taking IV ABX per OCT. Arron drain volume has increased in rate and color (From green to dark green.) Pt continues to have several episodes of loose stools. Ambulated with PT around unit, with little difficulty. PLAN MOVING FORWARD: Monitor white count. Surgery consult. Likely D/C home on Sunday. INDIVIDUALIZED FALL PREVENTION INTERVENTIONS: Patient-specific fall risk factors per assessment: [current deficits]: ECG wires, IVsites, Arron Drain, IV ABX Assistance [level of assistance required for transfers and ambulation]: 1+ Walker Supervision [direct monitoring required during toileting and ADLs]: IND Surveillance [continuous indirect monitoring]: Telemetry, call aguilar in reach, freq rounding Patient-specific fall prevention interventions for sensory deficits provided, if applicable: Yes CPG GOAL OUTCOME EVALUATION: Ongoing * Plan of Care - Angélica Colindres RN - 04/25/2020 4:45 AM EDT Problem: Patient Care Overview Goal: Plan of Care Review OUTCOME EVALUATION NOTE: OUTCOME SUMMARY: Pt A&Ox4, denies new pain, SOB or new issues overnight. VS as documented, slept between care. Telemetry reviewed, see tele report. IV labetalol given x1 for high BP, well controlled since. IV abxcontinued. Moderate amount of green drainage from arron drain. PLAN MOVING FORWARD: D/c planning INDIVIDUALIZED FALL PREVENTION INTERVENTIONS: Patient-specific fall risk factors per assessment: [current deficits]: Telemetry cords, cont pulse ox Assistance [level of assistance required for transfers and ambulation]: 1A w/ walker Supervision [direct monitoring required during toileting and ADLs]: Hands on Surveillance [continuous indirect monitoring]: Telemetry, cont pulse ox Patient-specific fall prevention interventions for sensory deficits provided, if applicable: Non skids socks when OOB, room near nurses station, purposeful rounding, personal belongings within reach. CPG GOAL OUTCOME EVALUATION: * Plan of Care - Ren Philippe RN - 04/24/2020 6:28 PM EDT Problem: Patient Care Overview Goal: Plan of Care Review Outcome: Ongoing (Interventions Implemented as Appropriate) 04/24/201822 Coping/Psychosocial Plan Of Care Reviewed With patient Plan of Care Review Progress progress towards functional goals is fair OUTCOME EVALUATION NOTE: OUTCOME SUMMARY: A+O x 4. Denies CP, denies SOB. Pt remains in NSR with Dep ST. Ambulated in room, and in kaufman today with less difficulty. (1+ Walker.) Still awaiting for PT/OT consult. Pt hypertensive- requiring several doses of labetolol. Pt very tired, as she did not sleep well theprevious night. IV Zosyn administered per OCT. PLAN MOVING FORWARD: Transition to PO ABX, and progress to D/C. INDIVIDUALIZED FALL PREVENTION INTERVENTIONS: Patient-specific fall risk factors per assessment: [current deficits]: ECG wires, IVsites, Weak, active IV Assistance [level of assistance required for transfers and ambulation]: 1+ Walker Supervision [direct monitoring required during toileting and ADLs]: IND Surveillance [continuous indirect monitoring]: Telemetry, call aguilar in reach, freq rounding Patient-specific fall prevention interventions for sensory deficits provided, if applicable: Yes CPG GOAL OUTCOME EVALUATION: Ongoing * Plan of Care - Angélica Colindres RN - 04/24/2020 4:38 AM EDT Problem: Patient Care Overview Goal: Plan of Care Review 04/20/20 1537 04/23/201999 Coping/Psychosocial Plan Of Care Reviewed With -- patient Plan of Care Review Progress progress towards functional goals is fair -- OUTCOME EVALUATION NOTE: OUTCOME SUMMARY: Pt A&Ox4, denies new pain, SOB or new issues overnight. Continues to have occasional stomach pain and chronic back pain, helped with tylenol. VS as documented, slept between care. Telemetry reviewed, see tele report. Arron drain with low output. PLAN MOVING FORWARD: Continue to work with PT, D/c planning INDIVIDUALIZED FALL PREVENTION INTERVENTIONS: Patient-specific fall risk factors per assessment: [current deficits]: Telemetry cords, cont pulse ox, weakness Assistance [level of assistance required for transfers and ambulation]: 1A w/ walker Supervision [direct monitoring required during toileting and ADLs]: Hands on Surveillance [continuous indirect monitoring]: Telemetry, cont pulse ox Patient-specific fall prevention interventions for sensory deficits provided, if applicable: Non skids socks when OOB, room near nurses station, purposeful rounding, personal belongings within reach. CPG GOAL OUTCOME EVALUATION: Goal: Fall Prevention-Safe Patient Handling 04/22/20 0727 04/23/201999 Daily Care Interventions Self-Care Promotion independence encouraged -- Campos Fall Risk History of Falling -- 0 Secondary Diagnosis -- 15 Ambulatory Aids -- 0 Intravenous Therapy/Heparin/Saline Lock -- 20 Gait/Transferring -- 0 Mental Status -- 0 Score -- 35 OTHER Campos Fall Risk -- Med Restraint Interventions Safety Promotion/Fall Prevention -- activity supervised;nonskid shoes/slippers when out of bed Positioning Body Position -- independent Activity Activity Type -- activity adjusted per tolerance;ambulated in room;ambulated to bathroom Activity Assistance Provided -- assistance, 1 person Assistive Device Utilized -- front-wheel walker Goal: Infection Control 04/23/201999 Safety Interventions Isolation Precautions standard precautions maintained Infection Prevention rest/sleep promoted;equipment surfaces disinfected Coping Strategies Supportive Measures active listening utilized Goal: Discharge Needs Assessment 04/19/20 1810 04/20/20 1537 Discharge Needs Assessment Concerns To Be Addressed -- no discharge needs identified Readmission Within The Last 30 Days -- no previous admission in last 30 days Provider Choice List(s) Given -- no Discharge Disposition -- still a patient Living Environment Transportation Available family or friend will provide -- * Care Management - Charbel Peralta RN - 04/23/2020 2:59 PM EDT I reviewed a list of Home Health Agencies/DME vendors with patient which serve the preferred geographic area. If patient chooses one of our affiliates, I will provide our affiliate letter. Education was provided about the right to choose where referrals are placed. Patient requests referral to :: [facility]. PHONE: [phone] FAX: [phone] Expected date of discharge:next 24-48 hours Referral routed to the Index Clerk for matching with agency/vendor and to provide any required information. * Op Note - Esau Rahman MD - 04/21/2020 6:14 PM EDT [facility] [place] Operative Note Patient Name: Shannan Chaudhary : [id number] MR#: [id number] Case Date: 04/21/2020 Surgeon: Surgeon(s) and Role: * Esau Rahman MD - Primary * Sandy Camargo DO - Fellow Preoperative diagnosis: ?CAD Postoperative diagnosis: Successful PCI with 2 SYNERGY stents Note cardiac output normal, and mean gradient across aortic valve 20 mmHg ASA loaded prior to case, plavix 600 mg load given in the biological lab technician I spoke with Dr Garrison. Tentative plan for cholecystostomy tube tomorrow, followed by gall bladdersurgery in 6 weeks. Recommend performing surgery on aspirin and plavix if possible, although SYNERGY stents allow for a short hold of plavix after 6 weeks if absolutely necessary. LVEDP 21 mmHg. Moderate aortic stenosis and preserved EF. Procedure(s) (LRB): CARDIAC CATHETERIZATION (Right) Access: RFA access under direct US guidance The patient tolerated the procedures smoothly and was transferred from the cardiac catheterization lab to the next level of care in stable condition, without pain. No evident early complications. Results discussed with referring core maker, service core maker, and with the patient and theirfamily. A time-out was conducted prior to the start of the procedure to verify the correct patient and procedure, procedure location, and all relevant critical information. Full report to follow. ESAU RAHMAN MD * Plan of Care - Zehra Mcnamara RN - 04/20/2020 7:07 PM EDT Problem: Patient Care Overview Goal: Plan of Care Review Outcome: Ongoing (Interventions Implemented as Appropriate) 04/20/20 1537 Coping/Psychosocial Plan Of Care Reviewed With patient Plan of Care Review Progress progress towards functional goals is fair OUTCOME EVALUATION NOTE: OUTCOME SUMMARY: Technician Trainee assumed care of pt at 07:30. Pt alert and orientated, calm and cooperative in care. Pt in NSR at start of shift. BP became soft and phenylephrine restarted per OCT. Please see associated note for more information on event. Pt weaned off of phenylephrine per OCT. At approximately 12:01 pt star nina to have short bursts of what appeared to be SVT with HRs to 160s that resolved on its own back to NSR. Pt denied feeling any changes during the episodes. Pt continued to have multiple episodes, cardiac consult team and Red ICU team both aware of events and an additional dose of metoprolol PO was ordered and administered per OCT at 12:54. Pt had a new onset of chest pain at 14:00. Chest pain resolved on its own without any intervention. Red team aware of chest pain episode, at bedside to evaluate patients, stat EKG ordered and obtained and an additional dose of 25mg of PO metoprolol was ordered and administered per OCT. Pt continues to have minimal pain at rest but significant pain while turning or exertion. Pt continues as an ICU patient with frequent monitoring of vitals and stability. Pt unable to void this morning and no recorded urine output in chart since yesterday. Pt bladder scanned this morning for 350mL, pt feels like she has to void but was unable to do so; team updated GUstatus; Roque placed per order for acute urinary retention Pt passing bowels with 3 bowel movements during shift. Pt able to make needs known, call light within reach. Please see MAR and doc flow for additional information. 1800: Pt abdomen appearing more distended and pt sustaining increased RR. Red team made aware and at bedside to assess patient. Will continue to monitor. PLAN MOVING FORWARD: Continue to monitor hemodynamic stability, continue to monitor HR and rhythm, continue to maintain stable BP with SBP goal >90, continue to monitor abdominal pain, continue to monitor chest pain INDIVIDUALIZED FALL PREVENTION INTERVENTIONS: Patient-specific fall risk factors per assessment: hemodynamic cardiac instability, critically ill patient, awaiting surgical intervention, continuous monitors in place, continuous IV infusions in place. Assistance: Bedrest, weight shift assistance provided Supervision: Hands on Surveillance: Bed locked in low position, call aguilar within reach, purposeful hourly rounding, clutter free environment, bed alarm on Patient-specific fall prevention interventions for sensory deficits provided:Yes: skin/ environmental surveillance CPG GOAL OUTCOME EVALUATION: Continue care plan as documented. Goal: Fall Prevention-Safe Patient Handling Outcome: Ongoing (Interventions Implemented as Appropriate) 04/19/20 1439 04/20/20 0800 04/20/20 1400 Daily Care Interventions Self-Care Promotion -- -- -- Campos Fall Risk History of Falling -- 0 -- Secondary Diagnosis -- 15 -- Ambulatory Aids -- 0 -- Intravenous Therapy/Heparin/Saline Lock -- 20 -- Gait/Transferring -- 0 -- Mental Status -- 0 -- Score -- 35 -- OTHER Campos Fall Risk -- Med -- Restraint Interventions Safety Promotion/Fall Prevention -- -- safety round/check completed;fall prevention program maintained Positioning Body Position -- -- supine Activity Activity Type -- -- activity adjusted per tolerance Activity Assistance Provided -- -- assistance, 2 people Assistive Device Utilized none -- -- 04/20/20 1537 Daily Care Interventions Self-Care Promotion independence encouraged Campos Fall Risk History of Falling -- Secondary Diagnosis -- Ambulatory Aids -- Intravenous Therapy/Heparin/Saline Lock -- Gait/Transferring -- Mental Status -- Score -- OTHER Campos Fall Risk -- Restraint Interventions Safety Promotion/Fall Prevention -- Positioning Body Position -- Activity Activity Type -- Activity Assistance Provided -- Assistive Device Utilized -- Goal: Infection Control Outcome: Ongoing (Interventions Implemented as Appropriate) 04/20/20 0803 04/20/20 1400 Safety Interventions Isolation Precautions -- standard precautions maintained Infection Prevention -- barrier precautions utilized;environmental surveillance performed;personal protective equipment utilized;rest/sleep promoted;single patient room provided;visitors restricted/screened Coping Strategies Supportive Measures active listening utilized;problem solving facilitated;positive reinforcement provided;verbalization of feelings encouraged -- Goal: Discharge Needs Assessment Outcome: Ongoing (Interventions Implemented as Appropriate) 04/19/20 1810 04/20/20 1537 Discharge Needs Assessment Concerns To Be Addressed -- no discharge needs identified Readmission Within The Last 30 Days -- no previous admission in last 30 days Provider Choice List(s) Given -- no Discharge Disposition -- still a patient Living Environment Transportation Available family or friend will provide -- Goal: Interdisciplinary Rounds/Family Conf Outcome: Ongoing (Interventions Implemented as Appropriate) 04/20/20 1537 Interdisciplinary Rounds/Family Conf Participants patient;nursing;physician * Consult Note - Esau Rahman MD - 04/20/2020 2:51 PM EDT Images from the original note were not included. ? CARDIOVASCULAR MEDICINE Esau Rahman MD MPH Structural Interventional Cardiology [place] [id number] , #5 Overall clinical summary: ?? This is a 79 y.o. year old female referred by Dr. Lisbeth Cain and Dr. Jos Garrison for evaluation of preoperative risk in the setting of severe aortic stenosis prior to cholecystectomy. Impression: . Low-flow, low gradient severe aortic stenosis . A. fib with RVR leading to hypotension . Acute cholecystitis . NSTEMI, this admission in setting of rapid A. fib, with diffuse ST depressions in the context of right bundle branch block and ST elevation in aVR . History of paroxysmal A. fib with one episode 1 year prior with no formal therapy . Not on aspirin . Coronary artery calcifications in LAD and circumflex on chest CT . Severe mitral annular calcification with resultant elevated mitral gradient 5 mmHg while in sinusrhythm . Calcific aortic valve with mild aortic regurgitation . Preserved ejection fraction with LVH . Diabetes . Creatinine 1.3, white count 17, hemoglobin 10.3, platelets 217 Plan/Next steps: ?? We are planning additional work up for this new problem for the patient. Addendum: I spoke in detail with Dr. Patel from cardiac anesthesiology and Dr. Garrison from surgery. We discussed the options of A) moving forward with surgery without any cardiac diagnostic or interventional procedures B) cardiac catheterization to understand the degree of coronary disease and aortic stenosis and proceeding with surgery if no intervention is needed acutely or C) proceeding with treatment of coronary disease and temporizing measures for valve disease with PCI if indicated and valvuloplasty, along with use of DAPT, and follow this with cholecystostomy tube with staged surgical intervention following 6 weeks recovery and while on DAPT These options were discussed with the patient and she is in agreement with moving forward with cardiac catheterization tomorrow with an understanding of the risks and benefits of the interventions described above. . Recommend cardiac catheterization to assess coronary arteries as well as aortic valve, and proceed with intervention if indicated. Also recommend assessment of volume status with right heart catheterization. . Recommend baby aspirin with a 324 mg load now Brief summary of most relevant clinical history and exam, as well as plan, are listed above. Below are further details of today's visit. Present history: This patient is an 79 y.o. year old female with a history of diabetes, paroxysmal A. fib and now a diagnosis of severe aortic stenosis who presented to the hospital for treatment of cholecystitis in the context of elevated cardiac risk. Her pain began last Sunday and T bili noted to be elevated. There is a reported history of aortic stenosis with a potential need for follow- up per cardiology but this was delayed when she broke her leg and during COVID. She has had chest pain this admission, and reported some prior to admission. She had not seen a core maker previously. Pertinent past history: Active Hospital Problems Diagnosis ??? Cholecystitis Resolved Hospital Problems No resolved problems to display. PAST MEDICAL HISTORY: The patient has a has a past medical history of Diabetes and Severe aortic stenosis.. The remainder of the PMH is summarized in the problem list above. PAST SURGICAL HISTORY: Past Surgical History: Procedure Laterality Date ??? HYSTERECTOMY, VAGINAL SOCIAL HISTORY: Reviewed and updated as appropriate in the medical record. Patient reports that shehas never smoked. She has never used smokeless tobacco. She reports current alcohol use. She reports that she does not use drugs. FAMILY HISTORY: The patient's family history is not on file. MEDICATIONS: Current Facility-Administered Medications Medication Dose Route Frequency Provider Last Rate Last Dose ??? metoprolol (LOPRESSOR) 5 mg/5 mL injection ??? acetaminophen (Tylenol) tablet 1,000 mg 1,000 mg Oral Q8H Carol Reyna MD 1,000mg at 04/20/20 1439 ??? bisacodyl EC (Dulcolax) tablet 10 mg 10 mg Oral Daily PRN Carol Reyna MD ??? polyethylene glycoL (Miralax) packet 17 g 17 g Oral Daily Carol Reyna MD ??? senna-docusate (Pericolace) 8.6-50 mg per tablet 2 tablet 2 tablet Oral BID Carol Reyna MD ??? rosuvastatin (Crestor) tablet 10 mg 10 mg Oral QPM Esau Ventura MD ? ? PHENYLephrine (ARDEN-SYNEPHRINE) 20 mg in sodium chloride 250 mL (standard ADULT & Pedi greater than 20kg) infusion 0-180 mcg/min Intravenous Continuous Esau Ventura MD Stopped at 04/20/20 1319 ??? metoprolol tartrate (Lopressor) tablet 37.5 mg 37.5 mg Oral Q6H Carol Patterson MD ??? sodium chloride 0.9 % (flush) flush 5 mL 5 mL Intravenous BID Jayashree Keenan MD 5 mL at 04/20/20 0900 ??? sodium chloride 0.9 % (flush) flush 5-20 mL 5-20 mL Intravenous Q1 Min PRN Jayashree Keenan MD ??? lidocaine (XYLOCAINE) 10 mg/mL (1 %) injection 3 mg 0.3 mL Subcutaneous Once PRN Jayashree Keenan MD ??? heparin (Porcine) subcutaneous injection 5,000 Units 5,000 Units Subcutaneous Q8H [facility] Jayashree Keenan MD 5,000 Units at 04/20/20 1023 ??? ondansetron (Zofran) tablet 4-8 mg 4-8 mg Oral Q8H PRN Jayashree Keenan MD Or ??? ondansetron (ZOFRAN) injection 4-8 mg 4-8 mg Intravenous Q8H PRN Jayashree Keenan MD ??? HYDROmorphone (DILAUDID) injection 0.4 mg 0.4 mg Intravenous Q4H PRN Jayashree Keenan MD ??? oxyCODONE (Roxicodone) tablet 5 mg 5 mg Oral Q4H PRN Jayashree Keenan MD 5 mg at 04/20/20 0213 ??? piperacillin-tazobactam (ZOSYN) 3.375 g vial attach to sodium chloride 0.9% 50 mL Mini-Bag Plus3.375 g Intravenous Q8H Jayashree Keenan MD Stopped at 04/20/20 1300 ??? glucose (GLUTOSE) 40% oral geL 15-30 g Buccal Q30 Min PRN Jayashree Keenan MD Or ??? dextrose 10% infusion 250 mL Intravenous Q30 Min PRN Jayashree Keenan MD Or ??? glucagon (human recombinant) injection SolR 1 mg 1 mg Intramuscular Q30 Min PRN Alba Keenan MD ??? insulin lispro (HumaLOG) VIAL injection 1-4 Units 1-4 Units Subcutaneous Q4H BASIL Jayashree Keenan MD ??? insulin glargine VIAL injection 25 Units 25 Units Subcutaneous Nightly Jayashree Keenan MD 25Units at 04/19/202047 ??? sodium chloride 0.9% infusion 50 mL/hr Intravenous Continuous Carol Reyna MD 50 mL/hr at 04/20/20 1400 50 mL/hr at 04/20/20 1400 ALLERGIES: Reviewed and updated as appropriate in the medical record: Patient has no known allergies. Review of systems: Please see the HPI for pertinent positives and negatives. The remainder of the ROS was reviewed and is negative. PHYSICAL EXAMINATION: Vitals: Patient Vitals for the past 168 hrs: Weight 04/19/20 1806 86.2 kg (190 lb) I/O last 3 completed shifts: In: 295 [I.V.:295] Out: 250 [Urine:250] I/O this shift: In: 420.4 [I.V.:374; IV Piggyback:46.4] Out: 485 [Urine:485] Loud late peaking 3/6 systolic murmur heard throughout prcordium and into carotids, which are weak and delayed. Single S2, loud. Mi mild inspiratory wheezing left lower lung base otherwise clear to auscultation bilaterally. No lower extremity edema. 1+ DP pulses bilaterally. Femoral artery pulses 2+ with no bruit. Patient is awake and communicative. When I came to visit she was having coughing spells and also incontinence of stool. This was due to the severity of her coughing. I was able to lay her flat and she was able to breathe easily and shared she could lay flat for several hours if needed. TESTING: I have reviewed the pertinent outside records, laboratory data, and imaging studies. I personally reviewed the images and developed my own interpretation of the echocardiogram, CT scan, chest xray, and ECG. Pertinent results for this evaluation include: Labs (including hgb, plt, INR, Cr, lipids if available): Lab Results Component Value Date WBC 17.9 (H) 04/20/2020 HGB 10.3 (L) 04/20/2020 HCT 32.6 (L) 04/20/2020 PLATELET 217 04/20/2020 CHLPL 225 (H) 04/15/2014 HDL 44 04/15/2014 LDLDIRECT 73 02/28/2017 ALT 22 04/20/2020 ALT Not Perf 04/20/2020 AST 18 04/20/2020 AST Not Perf 04/20/2020 NA 134 (L) 04/20/2020 K 3.9 04/20/2020 CL 100 04/20/2020 CREATININE 1.26 (H) 04/20/2020 BUN 30 (H) 04/20/2020 CO2 20 (L) 04/20/2020 TSH 3.81 04/15/2014 INR 1.4 04/20/2020 HA1C 10.0 (H) 02/28/2017 MICROALBUR 7.3 02/28/2017 ECG: I personally reviewed and interpret it to show as described above, normal sinus rhythm with right bundle branch block. She does have T wave inversions in the anterior septal leads. She also has T wave inversion in 3 and T wave flattening in aVF. Earlier this morning she had rapid A. fib with rates of [address] depressions throughout and ST elevation in aVR. Chest xray: I personally reviewed and interpret it to show normal cardiothoracic silhouette and no effusions or infiltrates. Echocardiogram: I personally reviewed and interpret it to show preserved EF of the thickened ventricle and a calcified thickened aortic valve and 1+ regurgitation; severe MAC with 1+ regurgitation, at least 2+ tricuspid regurgitation and low output low gradient severe left ear. CT scan: I personally reviewed this noncontrast CT and interpret it to show large iliofemoral's without significant calcium. She does have significant LAD and circumflex calcification in the coronaryarteries. There is calcification of the aortic valve as well as significant MAC. Plan: as described above. Without this evaluation, this patient at risk of worsening acute diastolic congestive heart failure. Note that this consult was 80 minutes in length, including time at the bedside with the patient discussing risks benefits and options and listening to her preferences, discussing with multiple colleagues. Also, time spent in review the medical record and review of her imaging studies. For referring providers: Thank you for requesting this consultation. For questions, please feel free to contact me: [phone] #5 (departmental secretary Bert Ortega, and he will have me paged) or [email or web address]. Shannan Chaudhary 04/20/2020 Referring Providers: MD Davy Mcdonaldye, Bethany Francis MD [address] [place] [address] [address] ESAU RAHMAN MD 04/20/2020 TESTING: Recent Results (from the past 72 hour(s)) ABO/Rh Typing Result Value Ref Range ABORh Type O Pos Antibody screen Result Value Ref Range Ab Screen Interp Negative Expires at 2359 on: 04/22/2020 ABORH Recheck Status Result Value Ref Range ABORH Recheck Order Order Placed ABORH Type Recheck Complete Comprehensive metabolic panel (non-fasting) Result Value Ref Range Glucose Lvl 146 65 - 199 mg/dL BUN 26 (H) 8 - 18 mg/dL Creatinine 1.37 (H) 0.70 - 1.20 mg/dL Sodium 135 135 - 145 mmol/L Potassium 4.1 3.5 - 5.0 mmol/L Chloride 97 (L) 98 - 107 mmol/L CO2 20 (L) 22 - 31 mmol/L Anion Gap 18 (H) 5 - 15 mmol/L Calcium 9.1 8.5 - 10.5 mg/dL Total Protein 7.1 6.1 - 8.0 gm/dL Albumin 3.6 3.2 - 5.2 gm/dL AST 28 0 - 30 unit/L ALT 30 0 - 30 unit/L Alk Phos 148 (H) 35 - 105 unit/L Total Bilirubin 2.1 (H) 0.2 - 1.3 mg/dL eGFR 37 (L) >=60 mL/min/1.73 m?? eGFR 42 (L) >=60 mL/min/1.73 m?? Prothrombin Time Result Value Ref Range PT 16.9 (H) 9.4 - 12.5 sec INR 1.5 Hemogram Result Value Ref Range WBC 17.0 (H) 4.0 - 9.5 x10(3)/mcL RBC 4.07 4.00 - 5.21 x10(6)/mcL Hemoglobin 11.2 (L) 11.7 - 15.5 gm/dL Hematocrit 34.8 (L) 35.7 - 45.8 % MCV 85.5 82.6 - 94.4 fL MCH 27.5 27.1 - 32.0 pg MCHC 32.2 31.7 - 35.0 gm/dL Platelets 220 145 - 357 x10(3)/mcL RDWSD 47.3 (H) 37.0 - 46.0 fL RDWCV 15.1 (H) 11.5 - 14.1 % MPV 11.3 7.6 - 12.9 fL nRBC % Auto 0.0 % nRBC Abs Auto 0.000 0.000 - 0.000 x10(3)/mcL Differential, Automated Result Value Ref Range Neutrophils % 85.2 % Neutr Abs (ANC) 14.50 (H) 1.70 - 6.10 x10(3)/mcL Lymphocytes % 7.8 % Lymphocytes Abs 1.3 0.9 - 3.2 x10(3)/mcL Monocytes % 5.7 % Monocyte Abs 1.0 (H) 0.3 - 0.9 x10(3)/mcL Eosinophils % 0.2 % Eosinophils Abs 0.0 0.0 - 0.4 x10(3)/mcL Basophils % 0.2 % Basophils Abs 0.0 0.0 - 0.1 x10(3)/mcL Immature Gran % 0.90 % Nanci Gran Abs 0.16 (H) 0.00 - 0.04 x10(3)/mcL POCT Glucose Result Value Ref Range POC Glucose 151 65 - 199 mg/dL POCT Glucose Result Value Ref Range POC Glucose 153 65 - 199 mg/dL EKG 12 Lead Result Value Ref Range Ventricular rate 100 BPM Atrial Rate 100 BPM P-R Interval 156 ms QRS Duration 116 ms Q-T Interval 368 ms QTC Calculated (Bezet) 474 ms Calculated P [place] 59 degrees Calculated R [place] 26 degrees Calculated T [place] 2 degrees INTERPRETATION Normal sinus rhythm Right bundle branch block Abnormal ECG No previous ECGs available POCT Glucose Result Value Ref Range POC Glucose 112 65 - 199 mg/dL EKG 12 Lead Result Value Ref Range Ventricular rate 168 BPM Atrial Rate 174 BPM QRS Duration 128 ms Q-T Interval 288 ms QTC Calculated (Bezet) 481 ms Calculated R [place] 82 degrees Calculated T [place] -18 degrees INTERPRETATION Atrial fibrillation with rapid ventricular response with premature ventricular or aberrantly conducted complexes Right bundle branch block T wave abnormality, consider inferior ischemia or digitalis effect Abnormal ECG When compared with ECG of 19-APR-2020 20:23, (unconfirmed) Atrial fibrillation has replaced Sinus rhythm Vent. rate has increased BY [address] now depressed in Anterolateral leads T wave inversion less evident in Anterior leads Troponin Result Value Ref Range Troponin-T <0.01 0.00 - 0.00 ng/mL Prothrombin Time Result Value Ref Range PT 15.7 (H) 9.4 - 12.5 sec INR 1.4 Comprehensive metabolic panel (non-fasting) Result Value Ref Range Glucose Lvl 129 65 - 199 mg/dL BUN 30 (H) 8 - 18 mg/dL Creatinine 1.26 (H) 0.70 - 1.20 mg/dL Sodium 134 (L) 135 - 145 mmol/L Potassium 3.9 3.5 - 5.0 mmol/L Chloride 100 98 - 107 mmol/L CO2 20 (L) 22 - 31 mmol/L Anion Gap 14 5 - 15 mmol/L Calcium 8.3 (L) 8.5 - 10.5 mg/dL Total Protein 6.1 6.1 - 8.0 gm/dL Albumin 2.8 (L) 3.2 - 5.2 gm/dL AST 18 0 - 30 unit/L ALT 22 0 - 30 unit/L Alk Phos 139 (H) 35 - 105 unit/L Total Bilirubin 1.5 (H) 0.2 - 1.3 mg/dL eGFR 40 (L) >=60 mL/min/1.73 m?? eGFR 47 (L) >=60 mL/min/1.73 m?? Magnesium Result Value Ref Range Magnesium 0.71 0.69 - 1.07 mmol/L Phosphorus Result Value Ref Range Phosphorus 3.6 2.5 - 4.5 mg/dL Hepatic Function Panel Result Value Ref Range Total Protein Not Perf 6.1 - 8.0 Albumin Not Perf 3.2 - 5.2 AST Not Perf 0 - 30 ALT Not Perf 0 - 30 Alk Phos Not Perf 35 - 105 Total Bilirubin Not Perf 0.2 - 1.3 Bili, Direct 0.5 (H) 0.0 - 0.3 mg/dL Lipase Result Value Ref Range Lipase 11 0 - 60 unit/L POCT Glucose Result Value Ref Range POC Glucose 134 65 - 199 mg/dL Hemogram Result Value Ref Range WBC 17.9 (H) 4.0 - 9.5 x10(3)/mcL RBC 3.75 (L) 4.00 - 5.21 x10(6)/mcL Hemoglobin 10.3 (L) 11.7 - 15.5 gm/dL Hematocrit 32.6 (L) 35.7 - 45.8 % MCV 86.9 82.6 - 94.4 fL MCH 27.5 27.1 - 32.0 pg MCHC 31.6 (L) 31.7 - 35.0 gm/dL Platelets 217 145 - 357 x10(3)/mcL RDWSD 48.5 (H) 37.0 - 46.0 fL RDWCV 15.0 (H) 11.5 - 14.1 % MPV 10.7 7.6 - 12.9 fL nRBC % Auto 0.0 % nRBC Abs Auto 0.000 0.000 - 0.000 x10(3)/mcL Differential, Automated Result Value Ref Range Neutrophils % 86.0 % Neutr Abs (ANC) 15.43 (H) 1.70 - 6.10 x10(3)/mcL Lymphocytes % 5.4 % Lymphocytes Abs 1.0 0.9 - 3.2 x10(3)/mcL Monocytes % 5.9 % Monocyte Abs 1.0 (H) 0.3 - 0.9 x10(3)/mcL Eosinophils % 0.4 % Eosinophils Abs 0.1 0.0 - 0.4 x10(3)/mcL Basophils % 0.3 % Basophils Abs 0.1 0.0 - 0.1 x10(3)/mcL Immature Gran % 2.00 % Nanci Gran Abs 0.36 (H) 0.00 - 0.04 x10(3)/mcL POCT Glucose Result Value Ref Range POC Glucose 151 65 - 199 mg/dL Lactate, whole blood, send to lab ([facility]) Result Value Ref Range Lactate WB 1.6 0.5 - 2.2 mmol/L POCT Glucose Result Value Ref Range POC Glucose 128 65 - 199 mg/dL Echocardiogram Transthoracic([facility]) Result Value Ref Range EF 59 Troponin Result Value Ref Range Troponin-T 0.22 (H) 0.00 - 0.00 ng/mL EKG 12 Lead Result Value Ref Range Ventricular rate 77 BPM Atrial Rate 77 BPM P-R Interval 160 ms QRS Duration 120 ms Q-T Interval 406 ms QTC Calculated (Bezet) 459 ms Calculated P [place] 48 degrees Calculated R [place] 27 degrees Calculated T [place] 18 degrees INTERPRETATION Sinus rhythm with marked sinus arrhythmia Right bundle branch block Abnormal ECG When compared with ECG of 20-APR-2020 02:33, (unconfirmed) Sinus rhythm has replaced Atrial fibrillation Vent. rate has decreased BY [address] no longer depressed in Anterolateral leads Nonspecific T wave abnormality has replaced inverted T waves in Inferior leads POCT Glucose Result Value Ref Range POC Glucose 140 65 - 199 mg/dL CC: Reshma Baig MD Patient Active Problem List Diagnosis ??? Cholecystitis ??? Type II or unspecified type diabetes mellitus without mention of complication, uncontrolled ??? Hypertension ??? Hyperlipidemia ??? Arthritis ??? Actinic keratosis ??? Seborrheic keratosis Patient Vitals for the past 24 hrs: BP Temp Temp src Pulse Resp SpO2 Height Weight 04/20/20 1443 137/82 -- -- 98 -- -- -- -- 04/20/20 1400 127/77 36.7 ??C (98.1 ??F) Oral 94 29 95 % -- -- 04/20/20 1350 126/63 -- -- 95 (!) 31 92 % -- -- 04/20/20 1330 130/76 -- -- 96 23 95 % -- -- 04/20/20 1320 135/89 -- -- 92 28 96 % -- -- 04/20/20 1315 145/71 -- -- (!) 113 20 97 % -- -- 04/20/20 1231 -- -- -- 83 19 95 % -- -- 04/20/20 1230 114/71 -- -- (!) 106 21 94 % -- -- 04/20/20 1220 130/54 -- -- 89 (!) 33 93 % -- -- 04/20/20 1210 130/87 -- -- 94 25 94 % -- -- 04/20/20 1205 120/53 -- -- 90 24 94 % -- -- 04/20/20 1200 123/49 -- -- 89 25 94 % -- -- 04/20/20 1010 114/47 -- -- 75 18 94 % -- -- 04/20/20 1005 104/50 -- -- 80 21 94 % -- -- 04/20/20 1000 -- 37.3 ??C (99.1 ??F) Axillary 86 21 94 % -- -- 04/20/20 0955 99/72 36.5 ??C (97.7 ??F) Oral 74 18 95 % -- -- 04/20/20 0950 116/55 -- -- 77 17 94 % -- -- 04/20/20 0945 109/50 -- -- 75 27 94 % -- -- 04/20/20 0940 117/59 -- -- 76 25 95 % -- -- 04/20/20 0935 101/49 -- -- 75 20 95 % -- -- 04/20/20 0930 108/40 -- -- 76 17 95 % -- -- 04/20/20 0925 107/85 -- -- 76 17 95 % -- -- 04/20/20 0920 95/46 -- -- 74 18 95 % -- -- 04/20/20 0915 96/52 -- -- 75 20 95 % -- -- 04/20/20 0910 101/40 -- -- 76 22 95 % -- -- 04/20/20 0905 (!) 89/68 -- -- 77 25 93 % -- -- 04/20/20 0901 (!) 72/55 -- -- 87 26 94 % -- -- 04/20/20 0830 91/48 -- -- 90 19 93 % -- -- 04/20/20 0803 108/47 36.6 ??C (97.9 ??F) Oral 85 28 94 % -- -- 04/20/20 0700 92/60 -- -- 95 20 93 % -- -- 04/20/20 0600 122/71 -- -- 92 24 94 % -- -- 04/20/20 0558 158/65 36.7 ??C (98.1 ??F) Axillary 93 25 94 % -- -- 04/20/20 0544 102/79 -- -- -- -- -- -- -- 04/20/20 0540 (!) 69/50 -- -- -- -- -- -- -- 04/20/20 0528 (!) 88/55 -- -- -- -- -- -- -- 04/20/20 0527 (!) 75/42 -- -- -- -- -- -- -- 04/20/20 0525 (!) 77/46 -- -- -- -- -- -- -- 04/20/20 0523 (!) 83/43 -- -- -- -- 92 % -- -- 04/20/20 0521 108/80 -- -- -- -- -- -- -- 04/20/20 0511 (!) -- -- -- -- -- -- -- 04/20/20 0509 (!) 83/45 -- -- -- -- -- -- -- 04/20/20 0508 94/51 -- -- -- -- -- -- -- 04/20/20 0504 99/51 -- -- -- -- -- -- -- 04/20/20 0500 (!) 78/42 -- -- -- -- -- -- -- 04/20/20 0443 97/49 -- -- -- -- -- -- -- 04/20/20 0436 93/43 -- -- -- -- -- -- -- 08/25/20 0430 100/49 -- -- -- -- -- -- -- 04/20/208 100/49 -- -- -- -- -- -- -- 04/20/20 0426 90/41 -- -- -- -- -- -- -- 04/20/20 0424 97/46 -- -- -- -- 91 % -- -- 04/20/20 0419 99/50 -- -- -- -- 91 % -- -- 04/20/20 0346 -- -- -- (!) 172 -- -- -- -- 04/20/20 0307 114/56 36.9 ??C (98.4 ??F) Oral -- 19 91 % -- -- 04/20/20 0219 115/62 -- -- -- -- 91 % -- -- 04/20/20 0039 124/79 36.8 ??C (98.2 ??F) Oral -- 18 91 % -- -- 04/19/20 1951 117/62 37 ??C (98.6 ??F) Oral -- 19 90 % -- -- 04/19/20 1806 -- -- -- -- -- -- 152.4 cm (5') 86.2 kg (190 lb) Blood pressure 137/82, pulse 98, temperature 36.7 ??C (98.1 ??F), temperature source Oral, resp. rate 29, height 152.4 cm (5'), weight 86.2 kg (190 lb), SpO2 95 %. Resp: [17-33] Complete medications: Current Facility-Administered Medications Ordered in Epic Medication Dose Route Frequency Provider Last Rate Last Dose ??? metoprolol (LOPRESSOR) 5 mg/5 mL injection ??? acetaminophen (Tylenol) tablet 1,000 mg 1,000 mg Oral Q8H Carol Reyna MD 1,000mg at 04/20/20 1439 ??? bisacodyl EC (Dulcolax) tablet 10 mg 10 mg Oral Daily PRN Carol Reyna MD ??? polyethylene glycoL (Miralax) packet 17 g 17 g Oral Daily Carol Reyna MD ??? senna-docusate (Pericolace) 8.6-50 mg per tablet 2 tablet 2 tablet Oral BID Carol Reyna MD ??? rosuvastatin (Crestor) tablet 10 mg 10 mg Oral QPM Esau Ventura MD ? ? PHENYLephrine (ARDEN-SYNEPHRINE) 20 mg in sodium chloride 250 mL (standard ADULT & Pedi greater than 20kg) infusion 0-180 mcg/min Intravenous Continuous Esau Ventura MD Stopped at 04/20/20 1319 ??? metoprolol tartrate (Lopressor) tablet 37.5 mg 37.5 mg Oral Q6H [facility] Carol Reyna MD ??? sodium chloride 0.9 % (flush) flush 5 mL 5 mL Intravenous BID Jayashree Keenan MD 5 mL at 04/20/20 0900 ??? sodium chloride 0.9 % (flush) flush 5-20 mL 5-20 mL Intravenous Q1 Min PRN Jayashree Keenan MD ??? lidocaine (XYLOCAINE) 10 mg/mL (1 %) injection 3 mg 0.3 mL Subcutaneous Once PRN Jayashree Keenan MD ??? heparin (Porcine) subcutaneous injection 5,000 Units 5,000 Units Subcutaneous Q8H Jayashree Hamilton MD 5,000 Units at 04/20/20 1023 ??? ondansetron (Zofran) tablet 4-8 mg 4-8 mg Oral Q8H PRN Jayashree Keenan MD Or ??? ondansetron (ZOFRAN) injection 4-8 mg 4-8 mg Intravenous Q8H PRN Jayashree Keenan MD ??? HYDROmorphone (DILAUDID) injection 0.4 mg 0.4 mg Intravenous Q4H PRN Jayashree Keenan MD ??? oxyCODONE (Roxicodone) tablet 5 mg 5 mg Oral Q4H PRN Jayashree Keenan MD 5 mg at 04/20/20 0213 ??? piperacillin-tazobactam (ZOSYN) 3.375 g vial attach to sodium chloride 0.9% 50 mL Mini-Bag Plus3.375 g Intravenous Q8H Jayashree Keenan MD Stopped at 04/20/20 1300 ??? glucose (GLUTOSE) 40% oral geL 15-30 g Buccal Q30 Min PRN Jayashree Keenan MD Or ??? dextrose 10% infusion 250 mL Intravenous Q30 Min PRN Jayashree Keenan MD Or ??? glucagon (human recombinant) injection SolR 1 mg 1 mg Intramuscular Q30 Min PRN Alba Kenean MD ??? insulin lispro (HumaLOG) VIAL injection 1-4 Units 1-4 Units Subcutaneous Q4H BASIL Jayashree Keenan MD ??? insulin glargine VIAL injection 25 Units 25 Units Subcutaneous Nightly Jayashree Keenan MD 25Units at 04/19/202047 ??? sodium chloride 0.9% infusion 50 mL/hr Intravenous Continuous Carol Reyna MD 50 mL/hr at 04/20/20 1400 50 mL/hr at 04/20/20 1400 No current [facility]-ordered outpatient medications on file. * Initial Assessments - Reshma Allred RN - 04/20/2020 2:29 PM EDT Office of Care Management Initial Assessment RESHMA ALLRED RN reviewed record and discussed patient with Care Team. Source of Information: Chart reviewed, care discussed with primary team and interview with patient. Introduced self/reviewed role; services accepted. Reason for Hospitalization: Reason for Admission as Stated by Patient: remove gallbladder Patient admitted for cholycystectomy; cardiac clearance requested due to and noted to have A FIB with RVR.Currently in CVCC with concern for risk factor for surgery. Last COVID test date and time: COVID-19 TESTING 04/18 Order: [id number] (suggestion) Information displayed in this report will not trend or trigger automated decision support. Ref Range & Units 2d ago COVID-19 Result Negative Negative Past Medical History: Diagnosis Date ??? Diabetes ??? Severe aortic stenosis Hospitalizations Within the Past 30 Days: none Anticipated Length Of Stay (If known): Expected Length of Hospitalization: 3 Days Current Decision-Making Capacity: Patient is alert and oriented and able to make decisions. Advance Care Planning: Patient states that s/he has advanced directives. We do not have a copy in the medical record. She says that her son, Darwin is DPOA HC and that a copy is at [facility]. If AD's have not been completed adult children would be surrogate decision maker per [place] surrogate decision making law. Any patient receiving care at [facility] must abide by [place] law. The hierarchy for surrogate decision making is: (a) Patient???s spouse, or civil union partner or common law spouse unless there is a divorce proceeding, separation agreement, or restraining order limiting that person???s relationship with the patient. Is not (b) Any adult son or daughter of the patient. Has 2 sons and a daughter. (c) Either parent of the patient. (d) Any adult brother or sister of the patient. (e) Any adult grandchild of the patient. (f) Any grandparent of the patient. (g) Any adult aunt, uncle, niece, or nephew of the patient. (h) A close friend of the patient. (i) The agent with financial power of assistant city attorney or a conservator appointed in accordance with RSA 464-[place]. (j) The guardian of the patient???s estate. Current Coping/Education/Information Needs: Coping well with hospital stay and feels updated on issues and plan. Current Functional Ability: Currently in CVCC. Having chest pain and RN notifying MD. Awaiting surgery once cleared by cardiology Functional Status Prior to Admission: States she is independent and active. 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 Is driving and able to walk good distances. Home Environment: Lives in [address] [place] [address] home with bed and bath on first level. Stairs are not an issue for her. There are no stairs to enter. Social & Family Supports/Community Resources: Has 2 sons and a daughter-one son and daughter live nearby and other son is in [place]. All able to assist if needed. Behavioral Health History: Denies any history of mental illness, depression or anxiety Substance Use/Abuse: Does not smoke, drink alcohol, use non prescribed drugs or marijuana DAST 10 In the past year have you used an illegal drug or used a prescription medication for non-medical reaons?: No In the past year have you used opioids (oxycodone, Vicodin, heroin, fentanyl, buprenorphine, methadone, etc.) for non-medical reasons?: No AUDIT In the past year have you had 4 or more drinks a day containing alcohol?: No Other Pertinent/Service Specific Information: n/a Health/Prescription Coverage: Primary Insurance: [employer] [facility] Secondary Insurance: N/A Prescription Coverage: yes Preferred Pharmacy: [facility] Other: n/a Primary Care Provider: Reshma Baig MD [phone] Patient/Caregiver Goals of Treatment: home with no needs once medically ready Potential Needs for Transition of Care: Rehab/SNF: n/a Home Health: n/a DME: n/a Dialysis: n/a Community Resources: n/a Transportation: son Darwin will take her home Other: n/a Anticipated Barriers to Discharge/Special Considerations: none Assessment: Independent woman admitted for chloycystectomy And found to have A FIb with RVR. Has insurance through [employer] with prescription coverage. Has accessible home and support of adult children. States she has advanced directives and we do not have a copy. Plan: Home no needs once medically ready. Have asked OCM to call [facility] for copy of AD. A member of the Care Management team will continue to monitor progress, follow for continuity of care and assist with transition of care planning. RESHMA ALLRED RN Pager: [phone] * Consult Note - Lisbeth Cain MD - 04/20/2020 10:04 AM EDT Images from the original note were not included. Inpatient Cardiology Consult Note Date of Consultation: 04/20/2020 Admit Date: 04/19/2020 Place of Service: [facility] Consult Attending: Dr. Cain Hospital Day 1 day Reason for Consult: Pre-operative risk assessment Active Problems: Patient Active Problem List Diagnosis ??? Cholecystitis ??? Type II or unspecified type diabetes mellitus without mention of complication, uncontrolled ??? Hypertension ??? Hyperlipidemia ??? Arthritis ??? Actinic keratosis ??? Seborrheic keratosis Subjective: Ms. Chaudhary is a 79 year old woman with a history of HTN, HLP, DM, severe (CORINE 0.8 at OSH) - asymptomatic, possible history of AF who presented to the hospital as a transfer from [facility] for acute cholecystitis with pain since Sunday. Her hospital course was complicated by AF RVR resulting in shock requiring transfer to the critical care unit. She was given metoprolol and phenylephrine and sheconverted back to sinus rhythm with subsequent hemodynamic stability before amiodarone was administered. She reports that she is feeling fine this morning. She is vaguely aware of having a valve problem and of having atrial fibrillation in the past but they are just being observed. She is not on anticoagulation. She reports being active at baseline working 40 hours per week. 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 She denies ever having a syncopal episode. She reports her legs well sometimes in the summer but no history of heart failure. She denies orthopnea, PND. Objective: Vitals: Last value Range last 24 hrs Temperature Temp: 37.3 ??C (99.1 ??F) Temp: [36.5 ??C (97.7 ??F)-37.3 ??C (99.1 ??F)] Heart Rate Heart Rate: 86 Heart Rate: [74-172] Blood Pressure BP: 99/72 BP: (69-158)/(25-85) Respiratory Rate Resp: 21 Resp: [17-28] SpO2 SpO2: 94 % SpO2: [90 %-95 %] I's and O's: Intake/Output Summary (Last 24 hours) at 04/20/2020 1004 Last data filed at 04/20/2020 1000 Gross per 24 hour Intake 452 ml Output 250 ml Net 202 ml Weights: Patient Vitals for the past 168 hrs: Weight 04/19/20 1806 86.2 kg (190 lb) Examination: Gen: AOx3, no acute distress HEENT: PERRL, EOMI, MMM Cardiac: RRR, III/ systolic murmur at RUSB Pulm: Good air movement, trace left base crackle Abd: Deferred LE: Trace LE edema ASA: 4: Patient with severe systemic disease that is a constant threat to life Mallampati: III: only the base of the uvula can be seen Diagnostics: EKG: Sinus rhythm with RBBB EKG: Atrial fibrillation versus flutter with RBBB Echo: SUMMARY: ?? 1. Mild concentric left ventricular hypertrophy is [...] by low stroke volume index (23 ml/m2). Nicole: 0.66% risk of perioperative TX or cardiac arrest Geriatric-sensitive RCRI: 2.1% probability of perioperative TX or cardiac arrest Assessment: Ms. Chaudhary is a 79 year old woman with a history of HTN, HLP, DM, severe (CORINE 0.8 at OSH) - asymptomatic, possible history of AF who presented to the hospital as a transfer from [facility] for acute cholecystitis with pain since Sunday. Hospitalization complicated by AF RVR and hypotension. Cardiology engaged for pre-operative risk assessment in the setting of her severe . Ms. Chaudhary has severe aortic stenosis with a component of mild calcific mitral stenosis as well and a low stroke volume. Her atrial fibrillation likely lead directly to hemodynamic decompensation and cardiogenic shock so we are fortunate that she is back in sinus rhythm. We have discussed her case with Dr. Rahman (Structural heart disease) and Dr. Patel (Cardiacanesthesia) and have agreed to evaluate her with a RHC, coronary angiography and potential evaluation. She can potentially be temporized with a balloon valvuloplasty and/or PCI. Recommendations: -Load with ASA 324 mg now -Continue ASA 81 daily -Continue metoprolol 37.5 Q6H as her BP can tolerate -If she going into AF RVR and is hemodynamically unstable can consider loading with amiodarone and/or electrical cardioversion (though she is not anticoagulated) -Recommend melt superintendant anticoagulation for her AF but this can be deferred at the moment Will continue to follow, page with questions. Anam Cazares MD Scientific Software Engineer PGY-5 04/20/2020 Page [phone] The indications, expected benefits, and potential risks of heart catheterization were reviewed in detail with the patient. The potential for , heart attack, stroke, kidney failure, hemorrhage, allergic reaction, vascular complications and infection were reviewed in detail. The possibility of stenting, balloon valvuloplasty and other percutaneous intervention, with associated risk, was reviewed. Alternatives were discussed and the patient's questions were answered in full. Following this discussion, the patient consented to the procedure and signed a form attesting to this, which is in the chart. * Consult Note - Piper Khan RN - 04/20/2020 6:13 AM EDT [facility] Consult Note Called to see Shannan Chaudhary who is a 79y female with severe aortic stenosis and IDDM who presented to OSH with cholecystitis. Admission Date/Time 04/19/2020 1:57 PM Hospital Day 1 day Problem List: Active Hospital Problems Diagnosis ??? Cholecystitis Resolved Hospital Problems No resolved problems to display. Active Non-Hospital Problems Diagnosis ??? Type II or unspecified type diabetes mellitus without mention of complication, uncontrolled ??? Hypertension ??? Hyperlipidemia ??? Arthritis ??? Actinic keratosis ??? Seborrheic keratosis No Known Allergies Assessment: Called to see patient for rapid AF with RVR with rates in the 160-180s in the context of severe .Per report, admission EKG was NSR, patient tonight c/o L. Sided chest pressure and nausea and appeared diaphoretic. On exam, she was tachycardic up to the 160-180s; 12 lead EKG showed AF with RVR with a rate of 168. BP initially 115/68. 2g mag given, troponin negative. She was given po metoprolol 25mg with no improvement and then 2.5mg IV metoprolol, after which her BP dropped slowly from the 80-90s systolic to the 60-70s systolic (see flowsheet). She was more lethargic at the time and decisionmade by primary team and CCS fellow to initiate phenylephrine and move patient to ICU. Arden started at 50mcg/min and improvement seen within a few minutes up to 100s systolic, patient more alert and interactive; HR remained 140s. Patient moved to CV21 (Red), no events en route, report given to RN. Plan: ECG obtained, metoprolol given, phenylephrine initiated Transfer to Critical Care: ICUS PIPER KHAN RN 6:13 AM April 20, 2020 documented in this encounter Plan of Treatment Scheduled Orders Name Type Priority Associated Diagnoses Orde r Schedule EKG 12 Lead ECG STAT Non-ST elevation myocardial infarction (NSTEMI) One Time for 1 Occurrences starting 04/29/2020 until 04/29/2020 Scheduled Referrals Name Type Priority Associated Diagnoses Orde r Schedule Referral to Cardiac Rehab Outpatient Referral Routine Non-ST elevation myocardial infarction (NSTEMI) Ordered: 04/26/2020 Referral to General Surgery Outpatient Referral Routine Cholecystitis Ordered: 04/26/2020 documented as of this encounter Procedures Procedure Name Priority Date/Time Associated Diagnosis Comments POCT GLUCOSE Routine 05/08/2020 11:10 AM EDT POCT GLUCOSE Routine 05/08/2020 6:51 AM EDT HEMOGRAM Routine 05/08/2020 5:46 AM EDT DIFFERENTIAL, AUTOMATED Routine 05/08/20 20 5:46 AM EDT HC CBC,PLT & AUTO DIFF Routine 0 5:46 AM EDT HC MAGNESIUM, SERUM Routine 05/08/2020 5 :46 AM EDT BASIC METABOLIC PANEL (NON-FASTING) Routine 05/08/2020 5:46 AM EDT POCT GLUCOSE Routine 05/07/2020 8:35 PM EDT POCT GLUCOSE Routine 05/07/2020 4:26 PM EDT POCT GLUCOSE Routine 05/07/2020 11:17 AM EDT POCT GLUCOSE Routine 05/07/2020 7:20 AM EDT HEMOGRAM Routine 05/07/2020 6:45 AM EDT DIFFERENTIAL, AUTOMATED Routine 05/07/20 6:45 AM EDT HC CBC,PLT & AUTO DIFF Routine 0 6:45 AM EDT HC MAGNESIUM, SERUM Routine 05/07/2020 6 :45 AM EDT BASIC METABOLIC PANEL (NON-FASTING) Routine 05/07/2020 6:45 AM EDT POCT GLUCOSE Routine 05/07/2020 4:11 AM EDT POCT GLUCOSE Routine 05/06/2020 11:36 PM EDT POCT GLUCOSE Routine 05/06/2020 8:28 PM EDT HEMOGRAM Routine 05/06/2020 5:36 PM EDT DIFFERENTIAL, AUTOMATED Routine 05/06/20 5:36 PM EDT HC VENIPUNCTURE Routine 05/06/2020 5:36 PM EDT POCT GLUCOSE Routine 05/06/2020 4:20 PM EDT TRANSFUSE RED BLOOD CELLS Routine 05/06/2020 2:12 PM EDT ABORH RECHECK STATUS STAT 05/06/2020 12:46 PM EDT ABO/RH TYPING STAT 05/06/2020 12:46 PM EDT ANTIBODY SCREEN STAT 05/06/2020 12:46 PM EDT HC ANTIBODY DETECTION,CAPTURE-R STAT 05/06/2020 12:46 PM EDT PREPARE RBC Routine 05/06/2020 12:15 PM EDT POCT GLUCOSE Routine 05/06/2020 11:50 AM EDT POCT GLUCOSE Routine 05/06/2020 7:39 AM EDT HEMOGRAM Routine 05/06/2020 5:25 AM EDT DIFFERENTIAL, AUTOMATED Routine 05/06/20 20 5:25 AM EDT HC CBC,PLT & AUTO DIFF Routine 0 5:25 AM EDT HC VENIPUNCTURE Routine 05/06/2020 5:25 AM EDT BASIC METABOLIC PANEL (NON-FASTING) Routine 05/06/2020 5:25 AM EDT POCT GLUCOSE Routine 05/06/2020 4:08 AM EDT LAB SCAN 05/06/2020 12:00 AM EDT POCT GLUCOSE Routine 05/05/2020 11:58 PM EDT POCT GLUCOSE Routine 05/05/2020 8:18 PM EDT POCT GLUCOSE Routine 05/05/2020 4:36 PM EDT HC VENIPUNCTURE Routine 05/05/2020 2:13 PM EDT POCT GLUCOSE Routine 05/05/2020 12:12 PM EDT POCT GLUCOSE Routine 05/05/2020 7:41 AM EDT HEMOGRAM Routine 05/05/2020 7:34 AM EDT DIFFERENTIAL, AUTOMATED Routine 05/05/20 20 7:34 AM EDT HC VENIPUNCTURE Routine 05/05/2020 7:34 AM EDT BASIC METABOLIC PANEL (NON-FASTING) Routine 05/05/2020 7:34 AM EDT HC VENIPUNCTURE Routine 05/05/2020 5:29 AM EDT POCT GLUCOSE Routine 05/05/2020 4:08 AM EDT POCT GLUCOSE Routine 05/04/2020 11:41 PM EDT HC VENIPUNCTURE Routine 05/04/2020 8:12 PM EDT POCT GLUCOSE Routine 05/04/2020 7:45 PM EDT POCT GLUCOSE Routine 05/04/2020 4:19 PM EDT HC VENIPUNCTURE Timed 05/04/2020 2:26 PM EDT POCT GLUCOSE Routine 05/04/2020 11:36 AM EDT POCT GLUCOSE Routine 05/04/2020 8:19 AM EDT HEMOGRAM Routine 05/04/2020 5:18 AM EDT DIFFERENTIAL, AUTOMATED Routine 05/04/20 20 5:18 AM EDT HC VENIPUNCTURE Routine 05/04/2020 5:18 AM EDT HC MAGNESIUM, SERUM Routine 05/04/2020 5 :18 AM EDT COMPREHENSIVE METABOLIC PANEL (NON-FASTING) Routine 05/04/2020 5:18 AM EDT POCT GLUCOSE Routine 05/04/2020 3:10 AM EDT POCT GLUCOSE Routine 05/04/2020 12:07 AM EDT POCT GLUCOSE Routine 05/03/2020 7:53 PM EDT POCT GLUCOSE Routine 05/03/2020 5:01 PM EDT HC VENIPUNCTURE Routine 05/03/2020 1:49 PM EDT POCT GLUCOSE Routine 05/03/2020 11:45 AM EDT Upper GI Endoscopy, Diagnostic (24914) 05/03/2020 10:28 AM EDT egd UPPER GI ENDOSCOPY Routine 05/03/2020 9: 48 AM EDT POCT GLUCOSE Routine 05/03/2020 7:50 AM EDT HEMOGRAM Routine 05/03/2020 5:08 AM EDT DIFFERENTIAL, AUTOMATED Routine 05/03/20 20 5:08 AM EDT HC CBC,PLT & AUTO DIFF Routine 0 5:08 AM EDT HC MAGNESIUM, SERUM Routine 05/03/2020 5 :08 AM EDT COMPREHENSIVE METABOLIC PANEL (NON-FASTING) Routine 05/03/2020 5:08 AM EDT POCT GLUCOSE Routine 05/03/2020 4:26 AM EDT POCT GLUCOSE Routine 05/03/2020 12:12 AM EDT HC HEMOGRAM Routine 05/02/2020 8:57 PM EDT POCT GLUCOSE Routine 05/02/2020 7:52 PM EDT POCT GLUCOSE Routine 05/02/2020 4:12 PM EDT ABORH RECHECK STATUS Timed 05/02/2020 3:13 PM EDT HC HEMOGRAM Routine 05/02/2020 3:13 PM EDT ABO/RH TYPING Timed 05/02/2020 3:13 PM EDT ANTIBODY SCREEN Timed 05/02/2020 3:13 PM EDT HC VENIPUNCTURE Timed 05/02/2020 3:13 PM EDT POCT GLUCOSE Routine 05/02/2020 11:32 AM EDT POCT GLUCOSE Routine 05/02/2020 7:46 AM EDT HEMOGRAM Routine 05/02/2020 6:13 AM EDT DIFFERENTIAL, AUTOMATED Routine 05/02/20 20 6:13 AM EDT HC VENIPUNCTURE Routine 05/02/2020 6:13 AM EDT PRO-BRAIN NATRIURETIC PEPTIDE Routine 05/02/2020 6:13 AM EDT HC MAGNESIUM, SERUM Routine 05/02/2020 6 :13 AM EDT COMPREHENSIVE METABOLIC PANEL (NON-FASTING) Routine 05/02/2020 6:13 AM EDT POCT GLUCOSE Routine 05/02/2020 3:20 AM EDT POCT GLUCOSE Routine 05/01/2020 11:42 PM EDT POCT GLUCOSE Routine 05/01/2020 8:14 PM EDT POCT GLUCOSE Routine 05/01/2020 4:51 PM EDT POCT GLUCOSE Routine 05/01/2020 11:52 AM EDT POCT GLUCOSE Routine 05/01/2020 7:40 AM EDT HEMOGRAM Routine 05/01/2020 5:23 AM EDT DIFFERENTIAL, AUTOMATED Routine 05/01/20 20 5:23 AM EDT HC CBC,PLT & AUTO DIFF Routine 0 5:23 AM EDT HC MAGNESIUM, SERUM Routine 05/01/2020 5 :23 AM EDT COMPREHENSIVE METABOLIC PANEL (NON-FASTING) Routine 05/01/2020 5:23 AM EDT POCT GLUCOSE Routine 05/01/2020 4:07 AM EDT POCT GLUCOSE Routine 04/30/2020 11:31 PM EDT POCT GLUCOSE Routine 04/30/2020 8:15 PM EDT POCT GLUCOSE Routine 04/30/2020 3:37 PM EDT POCT GLUCOSE Routine 04/30/2020 11:38 AM EDT EKG 12-LEAD STAT 04/30/2020 8:01 AM EDT Non-ST elevation myocardial infarction (NSTEMI) POCT GLUCOSE Routine 04/30/2020 7:18 AM EDT HEMOGRAM Routine 04/30/2020 6:36 AM EDT DIFFERENTIAL, AUTOMATED Routine 04/30/20 20 6:36 AM EDT HC VENIPUNCTURE Routine 04/30/2020 6:36 AM EDT HC MAGNESIUM, SERUM Routine 04/30/2020 6 :36 AM EDT COMPREHENSIVE METABOLIC PANEL (NON-FASTING) Routine 04/30/2020 6:36 AM EDT POCT GLUCOSE Routine 04/30/2020 4:14 AM EDT POCT GLUCOSE Routine 04/29/2020 11:08 PM EDT POCT GLUCOSE Routine 04/29/2020 7:52 PM EDT POCT GLUCOSE Routine 04/29/2020 4:17 PM EDT HC VENIPUNCTURE STAT 04/29/2020 3:28 PM EDT HC BLOOD CULTURE- STAT 04/29/2020 3:2 8 PM EDT POCT GLUCOSE Routine 04/29/2020 11:55 AM EDT POCT GLUCOSE Routine 04/29/2020 7:38 AM EDT HEMOGRAM Routine 04/29/2020 4:17 AM EDT DIFFERENTIAL, AUTOMATED Routine 04/29/20 20 4:17 AM EDT HC CBC,PLT & AUTO DIFF Routine 0 4:17 AM EDT HC MAGNESIUM, SERUM Routine 04/29/2020 4 :17 AM EDT COMPREHENSIVE METABOLIC PANEL (NON-FASTING) Routine 04/29/2020 4:17 AM EDT POCT GLUCOSE Routine 04/29/2020 4:16 AM EDT POCT GLUCOSE Routine 04/29/2020 12:34 AM EDT POCT GLUCOSE Routine 04/28/2020 8:36 PM EDT POCT GLUCOSE Routine 04/28/2020 4:05 PM EDT POCT GLUCOSE Routine 04/28/2020 12:47 PM EDT POCT GLUCOSE Routine 04/28/2020 10:[address] PERITONEAL DRAINAGE Routine 0 10:20 AM EDT ANAEROBIC CULTURE Routine 04/28/2020 10: 00 AM EDT HC BODY FLUID CULTURE Routine 04/28/2020 10:00 AM EDT BODY FLUID CULTURE, AEROBIC Routine 04/28/2020 10:00 AM EDT POCT GLUCOSE Routine 04/28/2020 8:10 AM EDT HEMOGRAM Routine 04/28/2020 4:05 AM EDT DIFFERENTIAL, AUTOMATED Routine 04/28/20 20 4:05 AM EDT HC CBC,PLT & AUTO DIFF Routine 0 4:05 AM EDT PRO-BRAIN NATRIURETIC PEPTIDE Routine 04/28/2020 4:05 AM EDT HC MAGNESIUM, SERUM Routine 04/28/2020 4 :05 AM EDT COMPREHENSIVE METABOLIC PANEL (NON-FASTING) Routine 04/28/2020 4:05 AM EDT POCT GLUCOSE Routine 04/28/2020 3:28 AM EDT POCT GLUCOSE Routine 04/27/2020 11:33 PM EDT POCT GLUCOSE Routine 04/27/2020 8:03 PM EDT POCT GLUCOSE Routine 04/27/2020 4:[address] ABDOMEN AND PELVIS W CONTRAST Routine 04/27/2020 3:49 PM EDT POCT GLUCOSE Routine 04/27/2020 11:59 AM EDT XR CHEST ONE VIEW Routine 04/27/2020 10: 47 AM EDT POCT GLUCOSE Routine 04/27/2020 7:43 AM EDT HEMOGRAM Routine 04/27/2020 4:41 AM EDT DIFFERENTIAL, AUTOMATED Routine 04/27/20 20 4:41 AM EDT HC VENIPUNCTURE Routine 04/27/2020 4:41 AM EDT HC MAGNESIUM, SERUM Routine 04/27/2020 4 :41 AM EDT COMPREHENSIVE METABOLIC PANEL (NON-FASTING) Routine 04/27/2020 4:41 AM EDT POCT GLUCOSE Routine 04/27/2020 4:12 AM EDT POCT GLUCOSE Routine 04/27/2020 12:14 AM EDT POCT GLUCOSE Routine 04/26/2020 8:19 PM EDT POCT GLUCOSE Routine 04/26/2020 4:52 PM EDT POCT GLUCOSE Routine 04/26/2020 11:50 AM EDT POCT GLUCOSE Routine 04/26/2020 7:43 AM EDT POCT GLUCOSE Routine 04/26/2020 5:07 AM EDT HEMOGRAM Routine 04/26/2020 4:42 AM EDT DIFFERENTIAL, AUTOMATED Routine 04/26/20 20 4:42 AM EDT HC VENIPUNCTURE Routine 04/26/2020 4:42 AM EDT HC MAGNESIUM, SERUM Routine 04/26/2020 4 :42 AM EDT COMPREHENSIVE METABOLIC PANEL (NON-FASTING) Routine 04/26/2020 4:42 AM EDT POCT GLUCOSE Routine 04/25/2020 10:39 PM EDT POCT GLUCOSE Routine 04/25/2020 8:54 PM EDT POCT GLUCOSE Routine 04/25/2020 7:43 PM EDT POCT GLUCOSE Routine 04/25/2020 5:35 PM EDT POCT GLUCOSE Routine 04/25/2020 12:21 PM EDT POCT GLUCOSE Routine 04/25/2020 7:37 AM EDT HEMOGRAM Routine 04/25/2020 5:05 AM EDT DIFFERENTIAL, AUTOMATED Routine 04/25/20 20 5:05 AM EDT HC VENIPUNCTURE Routine 04/25/2020 5:05 AM EDT HC MAGNESIUM, SERUM Routine 04/25/2020 5 :05 AM EDT COMPREHENSIVE METABOLIC PANEL (NON-FASTING) Routine 04/25/2020 5:05 AM EDT POCT GLUCOSE Routine 04/25/2020 4:06 AM EDT POCT GLUCOSE Routine 04/24/2020 11:19 PM EDT POCT GLUCOSE Routine 04/24/2020 8:16 PM EDT POCT GLUCOSE Routine 04/24/2020 5:08 PM EDT POCT GLUCOSE Routine 04/24/2020 11:48 AM EDT POCT GLUCOSE Routine 04/24/2020 7:33 AM EDT SCAN, PERIPHERAL BLOOD Routine 0 4:58 AM EDT HEMOGRAM Routine 04/24/2020 4:58 AM EDT DIFFERENTIAL, AUTOMATED Routine 04/24/20 20 4:58 AM EDT HC CBC,PLT & AUTO DIFF Routine 0 4:58 AM EDT HC MAGNESIUM, SERUM Routine 04/24/2020 4 :58 AM EDT COMPREHENSIVE METABOLIC PANEL (NON-FASTING) Routine 04/24/2020 4:58 AM EDT POCT GLUCOSE Routine 04/24/2020 4:06 AM EDT POCT GLUCOSE Routine 04/23/2020 11:44 PM EDT POCT GLUCOSE Routine 04/23/2020 8:02 PM EDT POCT GLUCOSE Routine 04/23/2020 4:15 PM EDT HC POTASSIUM Routine 04/23/2020 1:40 PM EDT POCT GLUCOSE Routine 04/23/2020 11:35 AM EDT POCT GLUCOSE Routine 04/23/2020 7:27 AM EDT POCT GLUCOSE Routine 04/23/2020 4:03 AM EDT SCAN, PERIPHERAL BLOOD Routine 0 2:25 AM EDT HEMOGRAM Routine 04/23/2020 2:25 AM EDT DIFFERENTIAL, AUTOMATED Routine 04/23/20 20 2:25 AM EDT HC PROTHROMBIN TIME Routine 04/23/2020 2 :25 AM EDT HC CBC,PLT & AUTO DIFF Routine 0 2:25 AM EDT HC MAGNESIUM, SERUM Routine 04/23/2020 2 :25 AM EDT COMPREHENSIVE METABOLIC PANEL (NON-FASTING) Routine 04/23/2020 2:25 AM EDT POCT GLUCOSE Routine 04/22/2020 11:23 PM EDT POCT GLUCOSE Routine 04/22/2020 8:00 PM EDT HC POTASSIUM Routine 04/22/2020 5:45 PM EDT POCT GLUCOSE Routine 04/22/2020 4:42 PM EDT IR CHOLECYSTOSTOMY TUBE PLACEMENT Routine 04/22/2020 4:19 PM EDT ANAEROBIC CULTURE Routine 04/22/2020 3:5 0 PM EDT HC GRAM STAIN FOR BACTERIA Routine 04/22/2020 3:50 PM EDT BODY FLUID CULTURE, AEROBIC Routine 04/22/2020 3:50 PM EDT HEMOGRAM Routine 04/22/2020 2:05 PM EDT DIFFERENTIAL, AUTOMATED Routine 04/22/20 20 2:05 PM EDT HC CBC,PLT & AUTO DIFF Routine 0 2:05 PM EDT POCT GLUCOSE Routine 04/22/2020 11:29 AM EDT BLOOD GAS 2 ARTERIAL Routine 04/22/2020 9:20 AM EDT POCT GLUCOSE Routine 04/22/2020 7:35 AM EDT XR CHEST ONE VIEW Routine 04/22/2020 6:1 5 AM EDT HC THYROID STIMULATING HORMONE, SERUM Routine 04/22/2020 3:50 AM EDT HEMOGRAM Routine 04/22/2020 3:50 AM EDT DIFFERENTIAL, AUTOMATED Routine 04/22/20 20 3:50 AM EDT HC PROTHROMBIN TIME Routine 04/22/2020 3 :50 AM EDT HC CBC,PLT & AUTO DIFF Routine 0 3:50 AM EDT HC MAGNESIUM, SERUM Routine 04/22/2020 3 :50 AM EDT HC HEMOGLOBIN A1C Routine 04/22/2020 3:5 0 AM EDT LIPID PANEL (REFLEX DIRECT LDL) Routine 04/22/2020 3:50 AM EDT COMPREHENSIVE METABOLIC PANEL (NON-FASTING) Routine 04/22/2020 3:50 AM EDT POCT GLUCOSE Routine 04/21/2020 11:36 PM EDT BASIC METABOLIC PANEL (NON-FASTING) Routine 04/21/2020 10:00 PM EDT POCT GLUCOSE Routine 04/21/2020 7:49 PM EDT POINT OF CARE BLOOD GAS HISTORICAL Routine 04/21/2020 4:44 PM EDT CARDIAC CATHETERIZATION Routine 04/21/20 20 4:08 PM EDT POCT GLUCOSE Routine 04/21/2020 12:15 PM EDT XR CHEST ONE VIEW STAT 04/21/2020 4:5 1 AM EDT HC TROPONIN T STAT 04/21/2020 4:45 AM EDT EKG 12-LEAD Routine 04/21/2020 4:33 AM EDT Hypertension, unspecified type POCT GLUCOSE Routine 04/21/2020 3:53 AM EDT HEMOGRAM Routine 04/21/2020 3:30 AM EDT DIFFERENTIAL, AUTOMATED Routine 04/21/20 20 3:30 AM EDT HC PROTHROMBIN TIME Routine 04/21/2020 3 :30 AM EDT HC CBC,PLT & AUTO DIFF Routine 0 3:30 AM EDT HC MAGNESIUM, SERUM Routine 04/21/2020 3 :30 AM EDT COMPREHENSIVE METABOLIC PANEL (NON-FASTING) Routine 04/21/2020 3:30 AM EDT HC TROPONIN T STAT 04/20/2020 11:55 PM EDT POCT GLUCOSE Routine 04/20/2020 11:46 PM EDT POCT GLUCOSE Routine 04/20/2020 7:42 PM EDT HC TROPONIN T STAT 04/20/2020 5:35 PM EDT POCT GLUCOSE Routine 04/20/2020 4:01 PM EDT EKG 12-LEAD Routine 04/20/2020 2:08 PM EDT Aortic valve stenosis, etiology of cardiac valve disease unspecified POCT GLUCOSE Routine 04/20/2020 11:32 AM EDT EKG 12-LEAD Routine 04/20/2020 11:30 AM EDT Aortic valve stenosis, etiology of cardiac valve disease unspecified HC TROPONIN T STAT 04/20/2020 11:30 AM EDT ECHO COMPLETE Routine 04/20/2020 10:20 AM EDT Aortic valve stenosis, etiology of cardiac valve disease unspecified POCT GLUCOSE Routine 04/20/2020 8:10 AM EDT LACTATE, WHOLE BLOOD, SEND TO LAB ([facility]/P) Routine 04/20/2020 5:25 AM EDT POCT GLUCOSE Routine 04/20/2020 5:23 AM EDT HEMOGRAM STAT 04/20/2020 3:25 AM EDT DIFFERENTIAL, AUTOMATED STAT 04/20/20 20 3:25 AM EDT HC VENIPUNCTURE STAT 04/20/2020 3:25 AM EDT POCT GLUCOSE Routine 04/20/2020 3:08 AM EDT HC PROTHROMBIN TIME STAT 04/20/2020 2 :43 AM EDT HC TROPONIN T STAT 04/20/2020 2:43 AM EDT PHOSPHORUS STAT 04/20/2020 2:43 AM EDT MAGNESIUM STAT 04/20/2020 2:43 AM EDT LIPASE STAT 04/20/2020 2:43 AM EDT HEPATIC FUNCTION PANEL STAT 0 2:43 AM EDT COMPREHENSIVE METABOLIC PANEL (NON-FASTING) STAT 04/20/2020 2:43 AM EDT EKG 12-LEAD STAT 04/20/2020 2:33 AM EDT Aortic valve stenosis, etiology of cardiac valve disease unspecified POCT GLUCOSE Routine 04/20/2020 12:36 AM EDT EKG 12-LEAD STAT 04/19/2020 8:23 PM EDT Aortic valve stenosis, etiology of cardiac valve disease unspecified POCT GLUCOSE Routine 04/19/2020 7:50 PM EDT POCT GLUCOSE Routine 04/19/2020 5:58 PM EDT REQUEST FOR 2ND READ CT ABDOMEN AND PELVIS Routine 04/19/2020 4:15 PM EDT HEMOGRAM STAT 04/19/2020 4:04 PM EDT DIFFERENTIAL, AUTOMATED STAT 04/19/20 20 4:04 PM EDT HC PROTHROMBIN TIME STAT 04/19/2020 4 :04 PM EDT HC CBC,PLT & AUTO DIFF STAT 0 4:04 PM EDT HC VENIPUNCTURE STAT 04/19/2020 4:04 PM EDT ABORH RECHECK STATUS STAT 04/19/2020 3:57 PM EDT ABO/RH TYPING STAT 04/19/2020 3:57 PM EDT ANTIBODY SCREEN STAT 04/19/2020 3:57 PM EDT HC ANTIBODY DETECTION,CAPTURE-R STAT 04/19/2020 3:57 PM EDT documented in this encounter Results * [...] aortic stenosis, s/p cholecystostomy tube 04/22/20 c/b arabella-hepatic dome abscess s/p CT guided abscess drain placement 04/28 -abscess drainage catheter located inframedial to the cholecystostomy catheter at skin site. ?? Patient has since been discharged to home per chart review and returns for arron tube check and abscess drain check. Patient [...] The procedure was performed under fluoroscopic guidance. Scale Model Maker fluoroscopic images of the right upper quadrant [...] was left in place. Impression: 1. Resolved arabella-hepatic / sub-diaphragmatic collection; drainage catheter removed. 2. [...] ?? Jos Collins DO IMG IR ORDERABLES * POCT Glucose (05/08/2020 11:10 AM EDT) POC Glucose 195 65 - 199 mg/dL [facility] Comment: Supplemental ranges: <140 mg/dL before meals <180 mg/dL all other times of the day Blood specimen (specimen) 05/08/2020 11:10 AM EDT 05/08/2020 11:10 AM EDT Kota Gonzales MD POINT OF CARE TEST O RDERATOAN Performing Organization Address City/[facility]/ZIP Co de Phone Number [facility] [place] [address] * POCT Glucose (05/08/2020 6:51 AM EDT) Pathologist [facility] POC Glucose 144 65 - 199 mg/dL [facility] Comment: Supplemental ranges: <140 mg/dL before meals <180 mg/dL all other times of the day Blood specimen (specimen) 05/08/2020 6:51 AM EDT 05/08/2020 6:51 AM EDT Milagros Velazquez MD POINT OF CARE TEST O ISAIAH Performing Organization Address City/[facility]/ZIP Co de Phone Number [facility] [place] [address] * Differential, Automated (05/08/2020 5:46 AM EDT) Pathologist [facility] Neutrophils % 60.5 % [facility] Neutr Abs (ANC) 5.19 1.70 - 6.10 x10(3)/[facility] Lymphocytes % 28.3 % [facility] Lymphocytes Abs 2.4 0.9 - 3.2 x10(3)/[facility] Monocytes % 5.8 % [facility] Monocyte Abs 0.5 0.3 - 0.9 x10(3)/[facility] Eosinophils % 3.4 % [facility] Eosinophils Abs 0.3 0.0 - 0.4 x10(3)/[facility] Basophils % 1.5 % [facility] Basophils Abs 0.1 0.0 - 0.1 x10(3)/[facility] Immature Gran % 0.50 % [facility] Comment: Immature granulocytes(IG's)percentage and absolute count will include metamyelocytes, myelocytes, and promyelocytes. Blood smears from CBCs yielding IG's will be scanned manually for concordance. If this scan disagrees with the automated IG or if promyelocytes are noted, a manual differential will be performed. Nanci Gran Abs 0.04 0.00 - 0.04 x10(3)/[facility] Blood specimen (specimen) 05/08/2020 5:46 AM EDT 05/08/2020 6:21 AM EDT Narrative Resulting Agency Comment Spec In Lab Wilner Esparza MD HEMATOLOGY ORDERABLE S [facility] [place] [address] * (ABNORMAL) Hemogram (05/08/2020 5:46 AM EDT) WBC 8.6 4.0 - 9.5 x10(3)/[facility] RBC 3.17(L) 4.00 - 5.21 x10(6)/[facility] Hemoglobin 8.8(L) 11.7 - 15.5 gm/dL [facility] Hematocrit 26.7(L) 35.7 - 45.8 % [facility] MCV 84.2 82.6 - 94.4 fL [facility] MCH 27.8 27.1 - 32.0 pg [facility] MCHC 33.0 31.7 - 35.0 gm/dL [facility] Platelets 351 145 - 357 x10(3[place] [place] 46.5(H) 37.0 - 46.0 fL [facility] RDWCV 15.6(H) 11.5 - 14.1 % [facility] MPV 10.1 7.6 - 12.9 fL [facility] nRBC % Auto 0.0 % [facility] nRBC Abs Auto 0.000 0.000 - 0.000 x10(3)/mcL [facility] Blood specimen (specimen) 05/08/2020 5:46 AM EDT 05/08/2020 6:21 AM EDT Narrative Resulting Agency Comment Spec In Lab Wilner Esparza MD HEMATOLOGY ORDERABLE S [facility] [place] [address] * (ABNORMAL) Basic Metabolic Panel (non-fasting) (05/08/2020 5:46 AM EDT) Glucose Lvl 152 65 - 199 mg/dL [facility] Comment:Diabetes: >=200 mg/d L plus symptoms BUN 20(H) 8 - 18 mg/dL [facility] Creatinine 0.85 0.70 - 1.20 mg/dL [facility] Sodium 136 135 - 145 mmol/L [facility] Potassium 4.1 3.5 - 5.0 mmol/L [facility] Comment: Please note: ??Patients with WBC >100,000 may have falsely elevated Potassium levels. ??For accurate Potassium quantification in these patients send serum separator tube (gold top) for subsequent determinations. ??Contact the Clinical Chemistry Laboratory if there are any questions. Chloride 107 98 - 107 mmol/L [facility] CO2 21(L) 22 - 31 mmol/L [facility] Anion Gap 8 5 - 15 mmol/L [facility] Calcium 8.9 8.5 - 10.5 mg/dL [facility] Estimated GFR 65 >=60 mL/min/1. 73 m?? [facility] Comment: The eGFR was calculated using the CKD-EPI equation. As with all creatinine based estimates of kidney function, eGFR values calculated with the CKD-EPI equation are not accurate in patients with acute kidney failure, extremes of body mass or the acutely ill. http://[email or web address]/DHMCnkf eGFR 76 >=60 mL/min/1. 73 m?? [facility] Comment: The eGFR was calculated using the CKD-EPI equation. As with all creatinine based estimates of kidney function, eGFR values calculated with the CKD-EPI equation are not accurate in patients with acute kidney failure, extremes of body mass or the acutely ill. [email or web address] Blood specimen (specimen) 05/08/2020 5:46 AM EDT 05/08/2020 6:20 AM EDT Narrative Resulting Agency Comment Spec In Lab Milagros Velazquez MD CHEMISTRY ORDERABLES Performing Organization Address [facility] Phone Number [facility] [place] [address] * Magnesium (05/08/2020 5:46 AM EDT) Magnesium 0.79 0.69 - 1.07 mmol/L [facility] Blood specimen (specimen) 05/08/2020 5:46 AM EDT 05/08/2020 6:20 AM EDT Narrative Resulting Agency Comment Spec In Lab Dale Dash MD CHEMISTRY ORDERABLES Performing Organization Address [facility] Phone Number [facility] [place] [address] * POCT Glucose (05/07/2020 8:35 PM EDT) POC Glucose 147 65 - 199 mg/dL [facility] Comment: Supplemental ranges: <140 mg/dL before meals <180 mg/dL all other times of the day Blood specimen (specimen) 05/07/2020 8:35 PM EDT 05/07/2020 8:35 PM EDT Milagros Velazquez MD POINT OF CARE TEST O RDERABLES Performing Organization Address [facility] Co de Phone Number [facility] [place] [address] * POCT Glucose (05/07/2020 4:26 PM EDT) POC Glucose 173 65 - 199 mg/dL [facility] Comment: Supplemental ranges: <140 mg/dL before meals <180 mg/dL all other times of the day Blood specimen (specimen) 05/07/2020 4:26 PM EDT 05/07/2020 4:26 PM EDT Milagros Velazquez MD POINT OF CARE TEST O RDERABLES [facility] [place] [address] * POCT Glucose (05/07/2020 11:17 AM EDT) POC Glucose 185 65 - 199 mg/dL [facility] Comment: Supplemental ranges: <140 mg/dL before meals <180 mg/dL all other times of the day Blood specimen (specimen) 05/07/2020 11:17 AM EDT 05/07/2020 11:17 AM EDT Milagros Velazquez MD POINT OF CARE TEST O RDERABLES [facility] [place] [address] * POCT Glucose (05/07/2020 7:20 AM EDT) POC Glucose 145 65 - 199 mg/dL [facility] Comment: Supplemental ranges: <140 mg/dL before meals <180 mg/dL all other times of the day Blood specimen (specimen) 05/07/2020 7:20 AM EDT 05/07/2020 7:20 AM EDT Milagros Velazquez MD POINT OF CARE TEST O RDERABLES [facility] [place] [address] * Differential, Automated (05/07/2020 6:45 AM EDT) Neutrophils % 53.8 % [facility] Neutr Abs (ANC) 4.19 1.70 - 6.10 x10(3)/[facility] Lymphocytes % 33.1 % [facility] Lymphocytes Abs 2.6 0.9 - 3.2 x10(3)/[facility] Monocytes % 7.6 % [facility] Monocyte Abs 0.6 0.3 - 0.9 x10(3)/[facility] Eosinophils % 3.2 % [facility] Eosinophils Abs 0.2 0.0 - 0.4 x10(3)/[facility] Basophils % 1.8 % [facility] Basophils Abs 0.1 0.0 - 0.1 x10(3)/[facility] Immature Gran % 0.50 % [facility] Comment: Immature granulocytes(IG's)percentage and absolute count will include metamyelocytes, myelocytes, and promyelocytes. Blood smears from CBCs yielding IG's will be scanned manually for concordance. If this scan disagrees with the automated IG or if promyelocytes are noted, a manual differential will be performed. Nanci Gran Abs 0.04 0.00 - 0.04 x10(3)/[facility] Blood specimen (specimen) 05/07/2020 6:45 AM EDT 05/07/2020 7:01 AM EDT Narrative Resulting Agency Comment Spec In Lab Wilner Esparza MD HEMATOLOGY ORDERABLE S [facility] [place] [address] * (ABNORMAL) Hemogram (05/07/2020 6:45 AM EDT) WBC 7.8 4.0 - 9.5 x10(3)/[facility] RBC 3.19(L) 4.00 - 5.21 x10(6)/[facility] Hemoglobin 8.8(L) 11.7 - 15.5 gm/dL [facility] Hematocrit 26.4(L) 35.7 - 45.8 % [facility] MCV 82.8 82.6 - 94.4 fL [facility] MCH 27.6 27.1 - 32.0 pg [facility] MCHC 33.3 31.7 - 35.0 gm/dL [facility] Platelets 360(H) 145 - 357 x10(3)/[facility] RDWSD 44.9 37.0 - 46.0 fL [facility] RDWCV 15.2(H) 11.5 - 14.1 % [facility] MPV 9.9 7.6 - 12.9 fL [facility] nRBC % Auto 0.0 % [facility] nRBC Abs Auto 0.000 0.000 - 0.000 x10(3)/[facility] Blood specimen (specimen) 05/07/2020 6:45 AM EDT 05/07/2020 7:01 AM EDT Narrative Resulting Agency Comment Spec In Lab Wilner Esparza MD HEMATOLOGY ORDERABLE S [facility] [place] [address] * (ABNORMAL) Basic Metabolic Panel (non-fasting) (05/07/2020 6:45 AM EDT) Glucose Lvl 145 65 - 199 mg/dL [facility] Comment:Diabetes: >=200 mg/d L plus symptoms BUN 18 8 - 18 mg/dL [facility] Creatinine 0.85 0.70 - 1.20 mg/dL [facility] Sodium 137 135 - 145 mmol/L [facility] Potassium 4.1 3.5 - 5.0 mmol/L [facility] Comment: Please note: ??Patients with WBC >100,000 may have falsely elevated Potassium levels. ??For accurate Potassium quantification in these patients send serum separator tube (gold top) for subsequent determinations. ??Contact the Clinical Chemistry Laboratory if there are any questions. Chloride 105 98 - 107 mmol/L [facility] CO2 21(L) 22 - 31 mmol/L [facility] Anion Gap 11 5 - 15 mmol/L [facility] Calcium 8.9 8.5 - 10.5 mg/dL [facility] Estimated GFR 65 >=60 mL/min/1. 73 m?? [facility] Comment: The eGFR was calculated using the CKD-EPI equation. As with all creatinine based estimates of kidney function, eGFR values calculated with the CKD-EPI equation are not accurate in patients with acute kidney failure, extremes of body mass or the acutely ill. [email or web address] eGFR 76 >=60 mL/min/1. 73 m?? [facility] Comment: The eGFR was calculated using the CKD-EPI equation. As with all creatinine based estimates of kidney function, eGFR values calculated with the CKD-EPI equation are not accurate in patients with acute kidney failure, extremes of body mass or the acutely ill. [email or web address] Blood specimen (specimen) 05/07/2020 6:45 AM EDT 05/07/2020 7:01 AM EDT Narrative Resulting Agency Comment Spec In Lab Milagros Velazquez MD CHEMISTRY ORDERABLES [facility] [place] [address] * Magnesium (05/07/2020 6:45 AM EDT) Magnesium 0.82 0.69 - 1.07 mmol/L [facility] Blood specimen (specimen) 05/07/2020 6:45 AM EDT 05/07/2020 7:01 AM EDT Narrative Resulting Agency Comment Spec In Lab Dale Dash MD CHEMISTRY ORDERABLES Performing Organization Address [facility] Co de Phone Number [facility] [place] [address] * POCT Glucose (05/07/2020 4:11 AM EDT) POC Glucose 156 65 - 199 mg/dL [facility] Comment: Supplemental ranges: <140 mg/dL before meals <180 mg/dL all other times of the day Blood specimen (specimen) 05/07/2020 4:11 AM EDT 05/07/2020 4:11 AM EDT Milagros Velazquez MD POINT OF CARE TEST O RDERABLES Performing Organization Address [facility] Co de Phone Number [facility] [place] [address] * POCT Glucose (05/06/2020 11:36 PM EDT) POC Glucose 172 65 - 199 mg/dL [facility] Comment: Supplemental ranges: <140 mg/dL before meals <180 mg/dL all other times of the day Blood specimen (specimen) 05/06/2020 11:36 PM EDT 05/06/2020 11:36 PM EDT Milagros Velazquez MD POINT OF CARE TEST O RDERABLES Performing Organization Address [facility] Co de Phone Number [facility] [place] [address] * POCT Glucose (05/06/2020 8:28 PM EDT) POC Glucose 195 65 - 199 mg/dL [facility] Comment: Supplemental ranges: <140 mg/dL before meals <180 mg/dL all other times of the day Blood specimen (specimen) 05/06/2020 8:28 PM EDT 05/06/2020 8:28 PM EDT Milagros Velazquez MD POINT OF CARE TEST O RDERABLES [facility] [place] [address] * Differential, Automated (05/06/2020 5:36 PM EDT) Neutrophils % 62.8 % [facility] Neutr Abs (ANC) 6.07 1.70 - 6.10 x10(3)/[facility] Lymphocytes % 27.5 % [facility] Lymphocytes Abs 2.7 0.9 - 3.2 x10(3)/[facility] Monocytes % 5.7 % [facility] Monocyte Abs 0.6 0.3 - 0.9 x10(3)/[facility] Eosinophils % 2.3 % [facility] Eosinophils Abs 0.2 0.0 - 0.4 x10(3)/[facility] Basophils % 1.3 % [facility] Basophils Abs 0.1 0.0 - 0.1 x10(3)/[facility] Immature Gran % 0.40 % [facility] Comment: Immature granulocytes(IG's)percentage and absolute count will include metamyelocytes, myelocytes, and promyelocytes. Blood smears from CBCs yielding IG's will be scanned manually for concordance. If this scan disagrees with the automated IG or if promyelocytes are noted, a manual differential will be performed. Nanci Gran Abs 0.04 0.00 - 0.04 x10(3)/[facility] Blood specimen (specimen) 05/06/2020 5:36 PM EDT 05/06/2020 6:04 PM EDT Narrative Resulting Agency Comment Spec In Lab Wilner Esparza MD HEMATOLOGY ORDERABLE S Performing Organization Address City/[facility]/ZIP Co de Phone Number [facility] [place] [address] * (ABNORMAL) Hemogram (05/06/2020 5:36 PM EDT) WBC 9.7(H) 4.0 - 9.5 x10(3)/[facility] RBC 3.53(L) 4.00 - 5.21 x10(6)/[facility] Hemoglobin 9.7(L) 11.7 - 15.5 gm/dL [facility] Hematocrit 29.8(L) 35.7 - 45.8 % [facility] MCV 84.4 82.6 - 94.4 fL [facility] MCH 27.5 27.1 - 32.0 pg [facility] MCHC 32.6 31.7 - 35.0 gm/dL [facility] Platelets 427(H) 145 - 357 x10(3)/[facility] RDWSD 45.3 37.0 - 46.0 [facility] RDWCV 14.9(H) 11.5 - 14.1 % [facility] MPV 10.0 7.6 - 12.9 fL [facility] nRBC % Auto 0.0 % [facility] nRBC Abs Auto 0.000 0.000 - 0.000 x10(3)/[facility] Blood specimen (specimen) 05/06/2020 5:36 PM EDT 05/06/2020 6:04 PM EDT Narrative Resulting Agency Comment Spec In Lab Wilner Esparza MD HEMATOLOGY ORDERABLE S [facility] [place] [address] * Transfuse RBC (05/06/2020 4:30 PM EDT) Milagros Velazquez MD NURSING TREATMENT OR DERABLES - BLOOD ADMIN * Transfuse RBC (05/06/2020 4:30 PM EDT) Milagros Velazquez MD NURSING TREATMENT OR DERABLES - BLOOD ADMIN * POCT Glucose (05/06/2020 4:20 PM EDT) [facility] POC Glucose 165 65 - 199 mg/dL [facility] Comment: Supplemental ranges: <140 mg/dL before meals <180 mg/dL all other times of the day Blood specimen (specimen) 05/06/2020 4:20 PM EDT 05/06/2020 4:20 PM EDT Milagros Velazquez MD POINT OF CARE TEST O RDERABLES [facility] [place] [address] * ABORH Recheck Status (05/06/2020 12:46 PM EDT) [facility] Type Recheck Completed [facility] Blood specimen (specimen) 05/06/2020 12:46 PM EDT 05/06/2020 12:51 PM EDT Narrative Resulting Agency Comment Spec In Lab Wilner Esparza MD BLOOD BANK LAB ORDER JAMIE Performing Organization Address City/[facility]/ZIP Co de Phone Number [facility] [place] [address] * Antibody screen (05/06/2020 12:46 PM EDT) [facility] Ab Screen Interp Negative [facility] Expires at [id number] on: 05/09/2020 [facility] Blood specimen (specimen) 05/06/2020 12:46 PM EDT 05/06/2020 12:51 PM EDT Narrative Resulting Agency Comment Spec In Lab Wilner Esparza MD BLOOD BANK LAB ORDER JAMIE [facility] [place] [address] * ABO/Rh Typing (05/06/2020 12:46 PM EDT) ABORH Type O Pos [facility] Blood specimen (specimen) 05/06/2020 12:46 PM EDT 05/06/2020 12:51 PM EDT Narrative Resulting Agency Comment Spec In Lab Wilner Esparza MD BLOOD BANK LAB ORDER JAMIE Performing Organization Address [facility]/ZIP Co de Phone Number [facility] [place] [address] * Prepare RBC (05/06/2020 12:15 PM EDT) Dispensed? Yes [facility] Blood specimen (specimen) 05/06/2020 12:15 PM EDT 05/06/2020 12:14 PM EDT Narrative Resulting Agency Comment Spec In Lab Milagros Velazquez MD BLOOD BANK PRODUCT O RDERABLES Performing Organization Address [facility] Co de Phone Number [facility] [place] [address] * (ABNORMAL) POCT Glucose (05/06/2020 11:50 AM EDT) POC Glucose 200(H) 65 - 199 mg/dL [facility] Comment: Supplemental ranges: <140 mg/dL before meals <180 mg/dL all other times of the day Blood specimen (specimen) 05/06/2020 11:50 AM EDT 05/06/2020 11:50 AM EDT Milagros Velazquez MD POINT OF CARE TEST O RDERABLES Performing Organization Address City/[facility]/ZIP Co de Phone Number [facility] [place] [address] * POCT Glucose (05/06/2020 7:39 AM EDT) POC Glucose 153 65 - 199 mg/dL [facility] Comment: Supplemental ranges: <140 mg/dL before meals <180 mg/dL all other times of the day Blood specimen (specimen) 05/06/2020 7:39 AM EDT 05/06/2020 7:39 AM EDT Milagros Velazquez MD POINT OF CARE TEST O RDERABLES [facility] [place] [address] * Differential, Automated (05/06/2020 5:25 AM EDT) Neutrophils % 56.6 % [facility] Neutr Abs (ANC) 4.64 1.70 - 6.10 x10(3)/[facility] Lymphocytes % 30.6 % [facility] Lymphocytes Abs 2.5 0.9 - 3.2 x10(3)/[facility] Monocytes % 7.8 % [facility] Monocyte Abs 0.6 0.3 - 0.9 x10(3)/[facility] Eosinophils % 3.0 % [facility] Eosinophils Abs 0.2 0.0 - 0.4 x10(3)/[facility] Basophils % 1.6 % [facility] Basophils Abs 0.1 0.0 - 0.1 x10(3)/[facility] Immature Gran % 0.40 % [facility] Comment: Immature granulocytes(IG's)percentage and absolute count will include metamyelocytes, myelocytes, and promyelocytes. Blood smears from CBCs yielding IG's will be scanned manually for concordance. If this scan disagrees with the automated IG or if promyelocytes are noted, a manual differential will be performed. Nanci Gran Abs 0.03 0.00 - 0.04 x10(3)/[facility] Blood specimen (specimen) 05/06/2020 5:25 AM EDT 05/06/2020 5:25 AM EDT Narrative Resulting Agency Comment Spec In Lab Wilner Esparza MD HEMATOLOGY ORDERABLE S [facility] [place] [address] * (ABNORMAL) Hemogram (05/06/2020 5:25 AM EDT) [facility] WBC 8.2 4.0 - 9.5 x10(3)/[facility] RBC 2.58(L) 4.00 - 5.21 x10(6)/[facility] Hemoglobin 7.0(L) 11.7 - 15.5 gm/dL [facility] Hematocrit 22.1(L) 35.7 - 45.8 % [facility] MCV 85.7 82.6 - 94.4 [facility] MCH 27.1 27.1 - 32.0 pg [facility] MCHC 31.7 31.7 - 35.0 gm/dL [facility] Platelets 364(H) 145 - 357 x10(3)/[facility] RDWSD 46.5(H) 37.0 - 46.0 [facility] RDWCV 15.2(H) 11.5 - 14.1 % [facility] MPV 9.9 7.6 - 12.9 [facility] nRBC % Auto 0.0 % [facility] nRBC Abs Auto 0.000 0.000 - 0.000 x10(3)/[facility] Blood specimen (specimen) 05/06/2020 5:25 AM EDT 05/06/2020 5:25 AM EDT Narrative Resulting Agency Comment Spec In Lab Wilner Esparza MD HEMATOLOGY ORDERABLE S [facility] [place] [address] * (ABNORMAL) Basic Metabolic Panel (non-fasting) (05/06/2020 5:25 AM EDT) [facility] Glucose Lvl 136 65 - 199 mg/dL [facility] Comment:Diabetes: >=200 mg/d L plus symptoms BUN 24(H) 8 - 18 mg/dL [facility] Creatinine 0.85 0.70 - 1.20 mg/dL [facility] Sodium 137 135 - 145 mmol/L [facility] Potassium 4.2 3.5 - 5.0 mmol/L [facility] Comment: Please note: ??Patients with WBC >100,000 may have falsely elevated Potassium levels. ??For accurate Potassium quantification in these patients send serum separator tube (gold top) for subsequent determinations. ??Contact the Clinical Chemistry Laboratory if there are any questions. Chloride 106 98 - 107 mmol/L [facility] CO2 21(L) 22 - 31 mmol/L [facility] Anion Gap 10 5 - 15 mmol/L [facility] Calcium 8.7 8.5 - 10.5 mg/dL [facility] Estimated GFR 65 >=60 mL/min/1. 73 m?? [facility] Comment: The eGFR was calculated using the CKD-EPI equation. As with all creatinine based estimates of kidney function, eGFR values calculated with the CKD-EPI equation are not accurate in patients with acute kidney failure, extremes of body mass or the acutely ill. [email or web address] eGFR 76 >=60 mL/min/1. 73 m?? [facility] Comment: The eGFR was calculated using the CKD-EPI equation. As with all creatinine based estimates of kidney function, eGFR values calculated with the CKD-EPI equation are not accurate in patients with acute kidney failure, extremes of body mass or the acutely ill. [email or web address] Blood specimen (specimen) 05/06/2020 5:25 AM EDT 05/06/2020 5:25 AM EDT Narrative Resulting Agency Comment Spec In Lab Milagros Velazquez MD CHEMISTRY ORDERABLES [facility] [place] [address] * Magnesium (05/06/2020 5:25 AM EDT) Magnesium 0.84 0.69 - 1.07 mmol/L [facility] Blood specimen (specimen) 05/06/2020 5:25 AM EDT 05/06/2020 5:25 AM EDT Narrative Resulting Agency Comment Spec In Lab Dale Dash MD CHEMISTRY ORDERABLES Performing Organization Address [facility] Co de Phone Number [facility] [place] [address] * POCT Glucose (05/06/2020 4:08 AM EDT) POC Glucose 154 65 - 199 mg/dL [facility] Comment: Supplemental ranges: <140 mg/dL before meals <180 mg/dL all other times of the day Blood specimen (specimen) 05/06/2020 4:08 AM EDT 05/06/2020 4:08 AM EDT Milagros Velazquez MD POINT OF CARE TEST O RDERABLES Performing Organization Address [facility] de Phone Number [facility] [place] [address] * SCAN DOC: LAB (05/06/2020 12:00 AM EDT) Narrative 05/06/2020 12:00 AM EDT Ordered by an unspecified provider. Scanning Provider MEDIA MGR SCAN EXT O RDR/RSLT * POCT Glucose (05/05/2020 11:58 PM EDT) POC Glucose 184 65 - 199 mg/dL [facility] Comment: Supplemental ranges: <140 mg/dL before meals <180 mg/dL all other times of the day Blood specimen (specimen) 05/05/2020 11:58 PM EDT 05/05/2020 11:58 PM EDT Milagros Velazquez MD POINT OF CARE TEST O RDERABLES Performing Organization Address [facility] Co de Phone Number [facility] [place] [address] * POCT Glucose (05/05/2020 8:18 PM EDT) POC Glucose 173 65 - 199 mg/dL [facility] Comment: Supplemental ranges: <140 mg/dL before meals <180 mg/dL all other times of the day Blood specimen (specimen) 05/05/2020 8:18 PM EDT 05/05/2020 8:18 PM EDT Milagros Velazquez MD POINT OF CARE TEST O RDERABLES Performing Organization Address [facility] Co de Phone Number [facility] [place] [address] * POCT Glucose (05/05/2020 4:36 PM EDT) Pathologist [facility] POC Glucose 147 65 - 199 mg/dL [facility] Comment: Supplemental ranges: <140 mg/dL before meals <180 mg/dL all other times of the day Blood specimen (specimen) 05/05/2020 4:36 PM EDT 05/05/2020 4:36 PM EDT Milagros Velazquez MD POINT OF CARE TEST O RDERABLES Performing Organization Address [facility] Co de Phone Number [facility] [place] [address] * (ABNORMAL) Hemogram (05/05/2020 2:13 PM EDT) WBC 9.3 4.0 - 9.5 x10(3)/[facility] LABORATORY RBC 2.85(L) 4.00 - 5.21 x10(6)/[facility] LABORATORY Hemoglobin 7.7(L) 11.7 - 15.5 gm/dL [facility] LABORATORY Hematocrit 24.3(L) 35.7 - 45.8 % [facility] MCV 85.3 82.6 - 94.4 fL [facility] MCH 27.0(L) 27.1 - 32.0 pg [facility] MCHC 31.7 31.7 - 35.0 gm/dL [facility] Platelets 386(H) 145 - 357 x10(3)/[facility] LABORATORY RDWSD 45.7 37.0 - 46.0 [facility] LABORATORY RDWCV 14.8(H) 11.5 - 14.1 % [facility] MPV 9.8 7.6 - 12.9 fL [facility] nRBC % Auto 0.0 % [facility] nRBC Abs Auto 0.000 0.000 - 0.000 x10(3)/[facility] LABORATORY Blood specimen (specimen) 05/05/2020 2:13 PM EDT 05/05/2020 2:18 PM EDT Narrative Resulting Agency Comment Spec In Lab Milagros Velazquez MD HEMATOLOGY ORDERABLE S [facility] [place] [address] * POCT Glucose (05/05/2020 12:12 PM EDT) POC Glucose 177 65 - 199 mg/dL [facility] Comment: Supplemental ranges: <140 mg/dL before meals <180 mg/dL all other times of the day Blood specimen (specimen) 05/05/2020 12:12 PM EDT 05/05/2020 12:12 PM EDT Milagros Velazquez MD POINT OF CARE TEST O RDERABLES [facility] [place] [address] * POCT Glucose (05/05/2020 7:41 AM EDT) POC Glucose 176 65 - 199 mg/dL [facility] Comment: Supplemental ranges: <140 mg/dL before meals <180 mg/dL all other times of the day Blood specimen (specimen) 05/05/2020 7:41 AM EDT 05/05/2020 7:41 AM EDT Milagros Velazquez MD POINT OF CARE TEST O ISAIAH [facility] [place] [address] * (ABNORMAL) Differential, Automated (05/05/2020 7:34 AM EDT) Pathologist [facility] Neutrophils % 64.5 % [facility] Neutr Abs (ANC) 5.88 1.70 - 6.10 x10(3)/ L [facility] Lymphocytes % 24.1 % [facility] Lymphocytes Abs 2.2 0.9 - 3.2 x10(3)/[facility] LABORATORY Monocytes % 7.0 % [facility] Monocyte Abs 0.6 0.3 - 0.9 x10(3)/[facility] LABORATORY Eosinophils % 2.7 % [facility] Eosinophils Abs 0.2 0.0 - 0.4 x10(3)/[facility] LABORATORY Basophils % 1.2 % [facility] Basophils Abs 0.1 0.0 - 0.1 x10(3)/ L [facility] Immature Gran % 0.50 % [facility] Comment: Immature granulocytes(IG's)percentage and absolute count will include metamyelocytes, myelocytes, and promyelocytes. Blood smears from CBCs yielding IG's will be scanned manually for concordance. If this scan disagrees with the automated IG or if promyelocytes are noted, a manual differential will be performed. Nanci Gran Abs 0.05(H) 0.00 - 0.04 x10(3)/mc L [facility] Blood specimen (specimen) 05/05/2020 7:34 AM EDT 05/05/2020 7:38 AM EDT Narrative Resulting Agency Comment Spec In Lab Wilner Esparza MD HEMATOLOGY ORDERABLE S Performing Organization Address City/[facility]/ZIP Co de Phone Number [facility] [place] [address] * (ABNORMAL) Hemogram (05/05/2020 7:34 AM EDT) WBC 9.1 4.0 - 9.5 x10(3)/[facility] LABORATORY RBC 2.76(L) 4.00 - 5.21 x10(6)/[facility] LABORATORY Hemoglobin 7.6(L) 11.7 - 15.5 gm/dL [facility] Hematocrit 23.6(L) 35.7 - 45.8 % [facility] MCV 85.5 82.6 - 94.4 fL [facility] MCH 27.5 27.1 - 32.0 pg [facility] MCHC 32.2 31.7 - 35.0 gm/dL [facility] Platelets 386(H) 145 - 357 x10(3)/[facility] LABORATORY RDWSD 46.0 37.0 - 46.0 [facility] LABORATORY RDWCV 15.1(H) 11.5 - 14.1 % [facility] MPV 9.9 7.6 - 12.9 [facility] LABORATORY nRBC % Auto 0.0 % [facility] nRBC Abs Auto 0.000 0.000 - 0.000 x10(3)/[facility] LABORATORY Blood specimen (specimen) 05/05/2020 7:34 AM EDT 05/05/2020 7:38 AM EDT Narrative Resulting Agency Comment Spec In Lab Wilner Esparza MD HEMATOLOGY ORDERABLE S [facility] [place] [address] * (ABNORMAL) Basic Metabolic Panel (non-fasting) (05/05/2020 7:34 AM EDT) Glucose Lvl 157 65 - 199 mg/dL [facility] Comment:Diabetes: >=200 mg/d L plus symptoms BUN 28(H) 8 - 18 mg/dL [facility] Creatinine 0.74 0.70 - 1.20 mg/dL [facility] Sodium 137 135 - 145 mmol/L [facility] Potassium 4.4 3.5 - 5.0 mmol/L [facility] Comment: Please note: ??Patients with WBC >100,000 may have falsely elevated Potassium levels. ??For accurate Potassium quantification in these patients send serum separator tube (gold top) for subsequent determinations. ??Contact the Clinical Chemistry Laboratory if there are any questions. Chloride 105 98 - 107 mmol/L [facility] CO2 21(L) 22 - 31 mmol/L [facility] Anion Gap 11 5 - 15 mmol/L [facility] Calcium 8.5 8.5 - 10.5 mg/dL [facility] Estimated GFR 77 >=60 mL/min/1. 73 m?? [facility] Comment: The eGFR was calculated using the CKD-EPI equation. As with all creatinine based estimates of kidney function, eGFR values calculated with the CKD-EPI equation are not accurate in patients with acute kidney failure, extremes of body mass or the acutely ill. [email or web address] eGFR 89 >=60 mL/min/1. 73 m?? [facility] Comment: The eGFR was calculated using the CKD-EPI equation. As with all creatinine based estimates of kidney function, eGFR values calculated with the CKD-EPI equation are not accurate in patients with acute kidney failure, extremes of body mass or the acutely ill. [email or web address]f Blood specimen (specimen) 05/05/2020 7:34 AM EDT 05/05/2020 7:38 AM EDT Narrative Resulting Agency Comment Spec In Lab Milagros Velazquez MD CHEMISTRY ORDERABLES Performing Organization Address [facility] Co de Phone Number [facility] [place] [address] * Magnesium (05/05/2020 5:29 AM EDT) Magnesium 0.81 0.69 - 1.07 mmol/L [facility] Blood specimen (specimen) 05/05/2020 5:29 AM EDT 05/05/2020 5:54 AM EDT Narrative Resulting Agency Comment Spec In Lab Dale Dash MD CHEMISTRY ORDERABLES Performing Organization Address [facility] de Phone Number [facility] [place] [address] * POCT Glucose (05/05/2020 4:08 AM EDT) POC Glucose 148 65 - 199 mg/dL [facility] Comment: Supplemental ranges: <140 mg/dL before meals <180 mg/dL all other times of the day Blood specimen (specimen) 05/05/2020 4:08 AM EDT 05/05/2020 4:08 AM EDT Milagros Velazquez MD POINT OF CARE TEST O RDERABLES Performing Organization Address [facility] Co de Phone Number [facility] [place] [address] * POCT Glucose (05/04/2020 11:41 PM EDT) POC Glucose 173 65 - 199 mg/dL [facility] Comment: Supplemental ranges: <140 mg/dL before meals <180 mg/dL all other times of the day Blood specimen (specimen) 05/04/2020 11:41 PM EDT 05/04/2020 11:41 PM EDT Milagros Velazquez MD POINT OF CARE TEST O RDERABLES Performing Organization Address City/[facility]/ZIP Co de Phone Number [facility] [place] [address] * (ABNORMAL) Hemogram (05/04/2020 8:12 PM EDT) [facility] WBC 11.8(H) 4.0 - 9.5 x10(3)/[facility] LABORATORY RBC 3.02(L) 4.00 - 5.21 x10(6)/[facility] LABORATORY Hemoglobin 8.2(L) 11.7 - 15.5 gm/dL [facility] Hematocrit 25.8(L) 35.7 - 45.8 % [facility] MCV 85.4 82.6 - 94.4 [facility] LABORATORY MCH 27.2 27.1 - 32.0 pg [facility] MCHC 31.8 31.7 - 35.0 gm/dL [facility] Platelets 418(H) 145 - 357 x10(3)/[facility] LABORATORY RDWSD 45.9 37.0 - 46.0 [facility] LABORATORY RDWCV 15.1(H) 11.5 - 14.1 % [facility] MPV 10.0 7.6 - 12.9 [facility] LABORATORY nRBC % Auto 0.0 % [facility] nRBC Abs Auto 0.000 0.000 - 0.000 x10(3)/[facility] LABORATORY Blood specimen (specimen) 05/04/2020 8:12 PM EDT 05/04/2020 8:36 PM EDT Narrative Resulting Agency Comment Spec In Lab Milagros Velazquez MD HEMATOLOGY ORDERABLE S [facility] [place] [address] * POCT Glucose (05/04/2020 7:45 PM EDT) [facility] POC Glucose 178 65 - 199 mg/dL [facility] Comment: Supplemental ranges: <140 mg/dL before meals <180 mg/dL all other times of the day Blood specimen (specimen) 05/04/2020 7:45 PM EDT 05/04/2020 7:45 PM EDT Milagros Velazquez MD POINT OF CARE TEST O ISAIAH Performing Organization Address [facility] Co de Phone Number [facility] [place] [address] * POCT Glucose (05/04/2020 4:19 PM EDT) [facility] POC Glucose 160 65 - 199 mg/dL [facility] Comment: Supplemental ranges: <140 mg/dL before meals <180 mg/dL all other times of the day Blood specimen (specimen) 05/04/2020 4:19 PM EDT 05/04/2020 4:19 PM EDT Milagros Velazquez MD POINT OF CARE TEST O ISAIAH Performing Organization Address [facility] de Phone Number [facility] [place] [address] * (ABNORMAL) Hemogram (05/04/2020 2:26 PM EDT) Pathologist [facility] WBC 10.6(H) 4.0 - 9.5 x10(3)/[facility] LABORATORY RBC 3.04(L) 4.00 - 5.21 x10(6)/[facility] LABORATORY Hemoglobin 8.3(L) 11.7 - 15.5 gm/dL [facility] Hematocrit 26.1(L) 35.7 - 45.8 % [facility] MCV 85.9 82.6 - 94.4 fL [facility] MCH 27.3 27.1 - 32.0 pg [facility] MCHC 31.8 31.7 - 35.0 gm/dL [facility] Platelets 474(H) 145 - 357 x10(3)/[facility] LABORATORY RDWSD 46.4(H) 37.0 - 46.0 fL [facility] RDWCV 15.0(H) 11.5 - 14.1 % [facility] MPV 10.4 7.6 - 12.9 fL [facility] nRBC % Auto 0.0 % [facility] nRBC Abs Auto 0.000 0.000 - 0.000 x10(3)/[facility] LABORATORY Blood specimen (specimen) 05/04/2020 2:26 PM EDT 05/04/2020 2:42 PM EDT Narrative Resulting Agency Comment Spec In Lab Milagros Velazquez MD HEMATOLOGY ORDERABLE S Performing Organization Address City/[facility]/ZIP Co de Phone Number [facility] [place] [address] * POCT Glucose (05/04/2020 11:36 AM EDT) POC Glucose 174 65 - 199 mg/dL [facility] Comment: Supplemental ranges: <140 mg/dL before meals <180 mg/dL all other times of the day Blood specimen (specimen) 05/04/2020 11:36 AM EDT 05/04/2020 11:36 AM EDT Milagros Velazquez MD POINT OF CARE TEST O RDERABLES [facility] [place] [address] * POCT Glucose (05/04/2020 8:19 AM EDT) POC Glucose 167 65 - 199 mg/dL [facility] Comment: Supplemental ranges: <140 mg/dL before meals <180 mg/dL all other times of the day Blood specimen (specimen) 05/04/2020 8:19 AM EDT 05/04/2020 8:19 AM EDT Milagros Velazquez MD POINT OF CARE TEST O RDERABLES [facility] [place] [address] * (ABNORMAL) Differential, Automated (05/04/2020 5:18 AM EDT) Neutrophils % 64.3 % [facility] Neutr Abs (ANC) 7.33(H) 1.70 - 6.10 x10(3)/[facility] LABORATORY Lymphocytes % 23.3 % [facility] Lymphocytes Abs 2.7 0.9 - 3.2 x10(3)/[facility] LABORATORY Monocytes % 7.4 % [facility] Monocyte Abs 0.8 0.3 - 0.9 x10(3)/[facility] LABORATORY Eosinophils % 3.4 % [facility] Eosinophils Abs 0.4 0.0 - 0.4 x10(3)/[facility] LABORATORY Basophils % 1.1 % [facility] Basophils Abs 0.1 0.0 - 0.1 x10(3)/[facility] LABORATORY Immature Gran % 0.50 % [facility] Comment: Immature granulocytes(IG's)percentage and absolute count will include metamyelocytes, myelocytes, and promyelocytes. Blood smears from CBCs yielding IG's will be scanned manually for concordance. If this scan disagrees with the automated IG or if promyelocytes are noted, a manual differential will be performed. Nanci Gran Abs 0.06(H) 0.00 - 0.04 x10(3)/[facility] LABORATORY Blood specimen (specimen) 05/04/2020 5:18 AM EDT 05/04/2020 5:40 AM EDT Narrative Resulting Agency Comment Spec In Lab Davon Leung MD HEMATOLOGY ORDERABLE S [facility] [place] [address] * (ABNORMAL) Hemogram (05/04/2020 5:18 AM EDT) [facility] WBC 11.4(H) 4.0 - 9.5 x10(3)/[facility] LABORATORY RBC 2.97(L) 4.00 - 5.21 x10(6)/[facility] LABORATORY Hemoglobin 8.0(L) 11.7 - 15.5 gm/dL [facility] Hematocrit 25.6(L) 35.7 - 45.8 % [facility] MCV 86.2 82.6 - 94.4 fL [facility] MCH 26.9(L) 27.1 - 32.0 pg [facility] MCHC 31.3(L) 31.7 - 35.0 gm/dL [facility] Platelets 415(H) 145 - 357 x10(3)/[facility] LABORATORY RDWSD 47.3(H) 37.0 - 46.0 [facility] LABORATORY RDWCV 15.2(H) 11.5 - 14.1 % [facility] MPV 10.0 7.6 - 12.9 [facility] LABORATORY nRBC % Auto 0.0 % [facility] nRBC Abs Auto 0.000 0.000 - 0.000 x10(3)/[facility] LABORATORY Blood specimen (specimen) 05/04/2020 5:18 AM EDT 05/04/2020 5:40 AM EDT Narrative Resulting Agency Comment Spec In Lab Davon Leung MD HEMATOLOGY ORDERABLE S [facility] [place] [address] * Magnesium (05/04/2020 5:18 AM EDT) Pathologist [facility] Magnesium 0.97 0.69 - 1.07 mmol/L [facility] Blood specimen (specimen) 05/04/2020 5:18 AM EDT 05/04/2020 5:40 AM EDT Narrative Resulting Agency Comment Spec In Lab Dale Dash MD CHEMISTRY ORDERABLES [facility] [place] [address] * (ABNORMAL) Comprehensive metabolic panel (non-fasting) (05/04/2020 5:18 AM EDT) Glucose Lvl 151 65 - 199 mg/dL [facility] Comment:Diabetes: >=200 mg/d L plus symptoms BUN 33(H) 8 - 18 mg/dL [facility] Creatinine 0.92 0.70 - 1.20 mg/dL [facility] Sodium 136 135 - 145 mmol/L [facility] Potassium 4.3 3.5 - 5.0 mmol/L [facility] Comment: Please note: ??Patients with WBC >100,000 may have falsely elevated Potassium levels. ??For accurate Potassium quantification in these patients send serum separator tube (gold top) for subsequent determinations. ??Contact the Clinical Chemistry Laboratory if there are any questions. Chloride 105 98 - 107 mmol/L [facility] CO2 20(L) 22 - 31 mmol/L [facility] Anion Gap 11 5 - 15 mmol/L [facility] Calcium 8.9 8.5 - 10.5 mg/dL [facility] Total Protein 6.0(L) 6.1 - 8.0 gm/dL [facility] Albumin 2.9(L) 3.2 - 5.2 gm/dL [facility] AST 12 0 - 30 unit/L [facility] ALT 11 0 - 30 unit/L [facility] Alk Phos 133(H) 35 - 105 unit/L [facility] Total Bilirubin 0.3 0.2 - 1.3 mg/dL [facility] Estimated GFR 59(L) >=60 mL/min/1. 73 m?? [facility] Comment: The eGFR was calculated using the CKD-EPI equation. As with all creatinine based estimates of kidney function, eGFR values calculated with the CKD-EPI equation are not accurate in patients with acute kidney failure, extremes of body mass or the acutely ill. [email or web address] eGFR 69 >=60 mL/min/1. 73 m?? [facility] Comment: The eGFR was calculated using the CKD-EPI equation. As with all creatinine based estimates of kidney function, eGFR values calculated with the CKD-EPI equation are not accurate in patients with acute kidney failure, extremes of body mass or the acutely ill. [email or web address] Blood specimen (specimen) 05/04/2020 5:18 AM EDT 05/04/2020 5:40 AM EDT Narrative Resulting Agency Comment Spec In Lab Dale Dash MD CHEMISTRY ORDERABLES Performing Organization Address City/[facility]/ZIP Co de Phone Number [facility] [place] [address] * POCT Glucose (05/04/2020 3:10 AM EDT) POC Glucose 163 65 - 199 mg/dL [facility] Comment: Supplemental ranges: <140 mg/dL before meals <180 mg/dL all other times of the day Blood specimen (specimen) 05/04/2020 3:10 AM EDT 05/04/2020 3:10 AM EDT Milagros Velazquez MD POINT OF CARE TEST O RDERABLES Performing Organization Address City/[facility]/ZIP Co de Phone Number [facility] [place] [address] * POCT Glucose (05/04/2020 12:07 AM EDT) POC Glucose 196 65 - 199 mg/dL [facility] Comment: Supplemental ranges: <140 mg/dL before meals <180 mg/dL all other times of the day Blood specimen (specimen) 05/04/2020 12:07 AM EDT 05/04/2020 12:07 AM EDT Milagros Velazquez MD POINT OF CARE TEST O POOLERATOAN Performing Organization Address City/[facility]/ZIP Co de Phone Number [facility] [place] [address] * (ABNORMAL) POCT Glucose (05/03/2020 7:53 PM EDT) POC Glucose 214(H) 65 - 199 mg/dL [facility] Comment: Supplemental ranges: <140 mg/dL before meals <180 mg/dL all other times of the day Blood specimen (specimen) 05/03/2020 7:53 PM EDT 05/03/2020 7:53 PM EDT Milagros Velazquez MD POINT OF CARE TEST O POOLERATOAN Performing Organization Address [facility] Co de Phone Number [facility] [place] [address] * POCT Glucose (05/03/2020 5:01 PM EDT) POC Glucose 199 65 - 199 mg/dL [facility] Comment: Supplemental ranges: <140 mg/dL before meals <180 mg/dL all other times of the day Blood specimen (specimen) 05/03/2020 5:01 PM EDT 05/03/2020 5:01 PM EDT Milagros Velazquez MD POINT OF CARE TEST O RDERATOAN Performing Organization Address City/[facility] Co de Phone Number [facility] [place] [address] * (ABNORMAL) Hemogram (05/03/2020 1:49 PM EDT) WBC 11.2(H) 4.0 - 9.5 x10(3)/[facility] LABORATORY RBC 3.20(L) 4.00 - 5.21 x10(6)/[facility] LABORATORY Hemoglobin 8.7(L) 11.7 - 15.5 gm/dL [facility] Hematocrit 27.1(L) 35.7 - 45.8 % [facility] MCV 84.7 82.6 - 94.4 fL [facility] MCH 27.2 27.1 - 32.0 pg [facility] MCHC 32.1 31.7 - 35.0 gm/dL [facility] Platelets 428(H) 145 - 357 x10(3)/[facility] RDWSD 45.1 37.0 - 46.0 [facility] LABORATORY RDWCV 14.8(H) 11.5 - 14.1 % [facility] MPV 9.7 7.6 - 12.9 [facility] LABORATORY nRBC % Auto 0.0 % [facility] nRBC Abs Auto 0.000 0.000 - 0.000 x10(3)/[facility] LABORATORY Blood specimen (specimen) 05/03/2020 1:49 PM EDT 05/03/2020 1:55 PM EDT Narrative Resulting Agency Comment Spec In Lab Milagros Velazquez MD HEMATOLOGY ORDERABLE S [facility] [place] [address] * POCT Glucose (05/03/2020 11:45 AM EDT) POC Glucose 155 65 - 199 mg/dL [facility] Comment: Supplemental ranges: <140 mg/dL before meals <180 mg/dL all other times of the day Blood specimen (specimen) 05/03/2020 11:45 AM EDT 05/03/2020 11:45 AM EDT Milagros Velazquez MD POINT OF CARE TEST O RDERABLES [facility] [place] [address] * UPPER GI ENDOSCOPY (05/03/2020 9:48 AM EDT) [facility] UPPER GI ENDOSCOPY [facility] Endoscopy Procedure Date: 05/03/2020 9:48 AM ? Patient Name: Shannan Farleyc ? [facility]: [id number] ? Date of : 1940 ? Age: 79 ? Order #: [id number] ? Instrument Name: [id number] ? Procedure: ? Upper GI endoscopy Indications: ? Melena Providers: ? Brigitte Graf MD, Oscar Almonte. ? Jessica Heath, ? Pilot Control Operator, Mauro Johnson MD: ? Medicines: ? Monitored Anesthesia Care Complications: ? No immediate complications. Procedure: ? Pre-Anesthesia Assessment: ? - See the other procedure note for ? documentation of the pre-procedure ? assessment. ? The procedure, indications, benefits, ? risks and alternatives were explained ? to the patient. Specifically ? discussed were potential ? complications including, but not ? limited to, bleeding, perforation, ? infection, missing a cancer, and ? adverse medication reactions. The ? Endoscope was introduced through the ? mouth, and advanced to the. The ? patient tolerated the procedure well. ? The upper GI endoscopy was ? accomplished without difficulty. The ? patient tolerated the procedure well. ? Findings: ? The Z-line was regular and was found 36 cm from the ? incisors. ? LA Grade D (one or more mucosal breaks involving at ? least 75% of esophageal circumference) esophagitis ? with no bleeding was found in the lower third of the ? esophagus and extended up to the mid esophagus. This ? was the likely cause of melena while on eliquis, ? aspirin, and plavix. ? A small amount of food (residue) was found in the ? gastric fundus and body. Lavage of the area was ? performed, resulting in clearance with adequate ? visualization. ? The exam of the stomach was otherwise normal. ? The examined duodenum was normal. ? Moderate Sedation: ? Not applicable - See Anesthesia documentation Impression: ?- Z-line regular, 36 cm from the ? incisors. ? - LA Grade D reflux esophagitis. ? Likely cause of melena. ? - A small amount of food (residue) in ? the stomach. ? - Normal examined duodenum. ? - No specimens collected. Recommendation: ?- Return patient to [facility] for ? ongoing care. ? - Resume previous diet. ? - Use Protonix (pantoprazole) 40 mg ? PO BID for 6 weeks, then PO daily ? - Monitor for signs of ongoing ? bleeding ? - If bleeding continues, will need ? colonoscopy during hospitalization. ? Otherwise will schedule as outpatient ? and repeat EGD as well to confirm ? mucosal healing. ? Attending Participation: ? I was present and participated during the entire ? procedure, including non-sanchez portions. ? Brigitte Graf MD _ Brigitte Graf MD 05/03/2020 10:59:53 AM This report has been signed electronically. Number of Addenda: 0 Note Initiated On: 05/03/2020 9:48 AM PROVATION 05/03/2020 9:48 AM EDT Unknown GENERAL SURGICAL ORD ERABLES Performing Organization Address [facility] de Phone Number PROVATION * POCT Glucose (05/03/2020 7:50 AM EDT) [facility] POC Glucose 164 65 - 199 mg/dL [facility] Comment: Supplemental ranges: <140 mg/dL before meals <180 mg/dL all other times of the day Blood specimen (specimen) 05/03/2020 7:50 AM EDT 05/03/2020 7:50 AM EDT Milagros Velazquez MD POINT OF CARE TEST O RDERABLES Performing Organization Address [facility] de Phone Number [facility] [place] [address] * (ABNORMAL) Differential, Automated (05/03/2020 5:08 AM EDT) Neutrophils % 69.6 % [facility] Neutr Abs (ANC) 9.11(H) 1.70 - 6.10 x10(3)/[facility] Lymphocytes % 19.6 % [facility] Lymphocytes Abs 2.6 0.9 - 3.2 x10(3)/[facility] Monocytes % 6.7 % [facility] Monocyte Abs 0.9 0.3 - 0.9 x10(3)/[facility]ORY Eosinophils % 2.8 % [facility] Eosinophils Abs 0.4 0.0 - 0.4 x10(3)/[facility] Basophils % 0.8 % [facility] Basophils Abs 0.1 0.0 - 0.1 x10(3)/[facility] Immature Gran % 0.50 % [facility] Comment: Immature granulocytes(IG's)percentage and absolute count will include metamyelocytes, myelocytes, and promyelocytes. Blood smears from CBCs yielding IG's will be scanned manually for concordance. If this scan disagrees with the automated IG or if promyelocytes are noted, a manual differential will be performed. Nanci Gran Abs 0.06(H) 0.00 - 0.04 x10(3)/[facility] Blood specimen (specimen) 05/03/2020 5:08 AM EDT 05/03/2020 5:30 AM EDT Narrative Resulting Agency Comment Spec In Lab Davon Leung MD HEMATOLOGY ORDERABLE S [facility] [place] [address] * (ABNORMAL) Hemogram (05/03/2020 5:08 AM EDT) WBC 13.1(H) 4.0 - 9.5 x10(3)/[facility] RBC 3.04(L) 4.00 - 5.21 x10(6)/[facility] Hemoglobin 8.3(L) 11.7 - 15.5 gm/dL [facility] Hematocrit 25.7(L) 35.7 - 45.8 % [facility] MCV 84.5 82.6 - 94.4 fL [facility] MCH 27.3 27.1 - 32.0 pg [facility] MCHC 32.3 31.7 - 35.0 gm/dL [facility] Platelets 409(H) 145 - 357 x10(3)/[facility] RDWSD 45.7 37.0 - 46.0 fL [facility] RDWCV 15.0(H) 11.5 - 14.1 % [facility] MPV 10.0 7.6 - 12.9 [facility] nRBC % Auto 0.0 % [facility] nRBC Abs Auto 0.000 0.000 - 0.000 x10(3)/[facility] Blood specimen (specimen) 05/03/2020 5:08 AM EDT 05/03/2020 5:30 AM EDT Narrative Resulting Agency Comment Spec In Lab Davon Leung MD HEMATOLOGY ORDERABLE S Performing Organization Address [facility] Co de Phone Number [facility] [place] [address] * Magnesium (05/03/2020 5:08 AM EDT) Magnesium 0.82 0.69 - 1.07 mmol/L [facility] Blood specimen (specimen) 05/03/2020 5:08 AM EDT 05/03/2020 5:30 AM EDT Narrative Resulting Agency Comment Spec In Lab Dale Dash MD CHEMISTRY ORDERABLES Performing Organization Address [facility] Co de Phone Number [facility] [place] [address] * (ABNORMAL) Comprehensive metabolic panel (non-fasting) (05/03/2020 5:08 AM EDT) Glucose Lvl 164 65 - 199 mg/dL [facility] Comment:Diabetes: >=200 mg/d L plus symptoms BUN 30(H) 8 - 18 mg/dL [facility] Creatinine 0.82 0.70 - 1.20 mg/dL [facility] Sodium 138 135 - 145 mmol/L [facility] Potassium 4.2 3.5 - 5.0 mmol/L [facility] Comment: Please note: ??Patients with WBC >100,000 may have falsely elevated Potassium levels. ??For accurate Potassium quantification in these patients send serum separator tube (gold top) for subsequent determinations. ??Contact the Clinical Chemistry Laboratory if there are any questions. Chloride 105 98 - 107 mmol/L [facility] CO2 21(L) 22 - 31 mmol/L [facility] Anion Gap 12 5 - 15 mmol/L [facility] Calcium 9.0 8.5 - 10.5 mg/dL [facility] Total Protein 6.1 6.1 - 8.0 gm/dL [facility] Albumin 3.0(L) 3.2 - 5.2 gm/dL [facility] AST 7 0 - 30 unit/L [facility] ALT 8 0 - 30 unit/L [facility] Alk Phos 136(H) 35 - 105 unit/L [facility] Total Bilirubin 0.3 0.2 - 1.3 mg/dL [facility] Estimated GFR 68 >=60 mL/min/1. 73 m?? [facility] Comment: The eGFR was calculated using the CKD-EPI equation. As with all creatinine based estimates of kidney function, eGFR values calculated with the CKD-EPI equation are not accurate in patients with acute kidney failure, extremes of body mass or the acutely ill. http://1000memories/DHnkf eGFR 79 >=60 mL/min/1. 73 m?? [facility] Comment: The eGFR was calculated using the CKD-EPI equation. As with all creatinine based estimates of kidney function, eGFR values calculated with the CKD-EPI equation are not accurate in patients with acute kidney failure, extremes of body mass or the acutely ill. [email or web address] Blood specimen (specimen) 05/03/2020 5:08 AM EDT 05/03/2020 5:30 AM EDT Narrative Resulting Agency Comment Spec In Lab Dale Dash MD CHEMISTRY ORDERABLES Performing Organization Address [facility] Co de Phone Number [facility] [place] [address] * POCT Glucose (05/03/2020 4:26 AM EDT) POC Glucose 164 65 - 199 mg/dL [facility] Comment: Supplemental ranges: <140 mg/dL before meals <180 mg/dL all other times of the day Blood specimen (specimen) 05/03/2020 4:26 AM EDT 05/03/2020 4:26 AM EDT Milagros Velazquez MD POINT OF CARE TEST O RDERABLES Performing Organization Address [facility] Co de Phone Number [facility] [place] [address] * POCT Glucose (05/03/2020 12:12 AM EDT) POC Glucose 175 65 - 199 mg/dL [facility] Comment: Supplemental ranges: <140 mg/dL before meals <180 mg/dL all other times of the day Blood specimen (specimen) 05/03/2020 12:12 AM EDT 05/03/2020 12:12 AM EDT Milagros Velazquez MD POINT OF CARE TEST O RDERABLES Performing Organization Address [facility] Co de Phone Number [facility] [place] [address] * (ABNORMAL) Hemogram (05/02/2020 8:57 PM EDT) Pathologist [facility] WBC 12.9(H) 4.0 - 9.5 x10(3)/[facility] RBC 3.04(L) 4.00 - 5.21 x10(6)/[facility] Hemoglobin 8.3(L) 11.7 - 15.5 gm/dL [facility] Hematocrit 25.9(L) 35.7 - 45.8 % [facility] MCV 85.2 82.6 - 94.4 fL [facility] MCH 27.3 27.1 - 32.0 pg [facility] MCHC 32.0 31.7 - 35.0 gm/dL [facility] Platelets 413(H) 145 - 357 x10(3)/[facility] RDWSD 45.7 37.0 - 46.0 [facility] RDWCV 14.8(H) 11.5 - 14.1 % [facility] MPV 9.7 7.6 - 12.9 [facility] nRBC % Auto 0.0 % [facility] nRBC Abs Auto 0.000 0.000 - 0.000 x10(3)/[facility] Blood specimen (specimen) 05/02/2020 8:57 PM EDT 05/02/2020 9:08 PM EDT Narrative Resulting Agency Comment Spec In Lab Milagros Velazquez MD HEMATOLOGY ORDERABLE S [facility] [place] [address] * (ABNORMAL) POCT Glucose (05/02/2020 7:52 PM EDT) POC Glucose 246(H) 65 - 199 mg/dL [facility] Comment: Supplemental ranges: <140 mg/dL before meals <180 mg/dL all other times of the day Blood specimen (specimen) 05/02/2020 7:52 PM EDT 05/02/2020 7:52 PM EDT Milagros Velazquez MD POINT OF CARE TEST O RDROBIN Performing Organization Address [facility] Co de Phone Number [facility] [place] [address] * (ABNORMAL) POCT Glucose (05/02/2020 4:12 PM EDT) Pathologist [facility] POC Glucose 227(H) 65 - 199 mg/dL [facility] Comment: Supplemental ranges: <140 mg/dL before meals <180 mg/dL all other times of the day Blood specimen (specimen) 05/02/2020 4:12 PM EDT 05/02/2020 4:12 PM EDT Milagros Velazquez MD POINT OF CARE TEST O ISAIAH Performing Organization Address [facility] Co de Phone Number [facility] [place] [address] * ABORH Recheck Status (05/02/2020 3:13 PM EDT) ABORH Type Recheck Completed [facility] Blood specimen (specimen) 05/02/2020 3:13 PM EDT 05/02/2020 3:17 PM EDT Narrative Resulting Agency Comment Spec In Lab Wilner Esparza MD BLOOD BANK LAB ORDER JAMIE Performing Organization Address [facility] Co de Phone Number [facility] [place] [address] * Antibody screen (05/02/2020 3:13 PM EDT) Ab Screen Interp Negative [facility] Expires at [id number] on: 05/05/2020 [facility] Blood specimen (specimen) 05/02/2020 3:13 PM EDT 05/02/2020 3:17 PM EDT Narrative Resulting Agency Comment Spec In Lab Wilner Esparza MD BLOOD BANK LAB ORDER JAMIE [facility] [place] [address] * ABO/Rh Typing (05/02/2020 3:13 PM EDT) ABORH Type O Pos [facility] Blood specimen (specimen) 05/02/2020 3:13 PM EDT 05/02/2020 3:17 PM EDT Narrative Resulting Agency Comment Spec In Lab Wilner Esparza MD BLOOD BANK LAB ORDER JAMIE Performing Organization Address [facility] Co de Phone Number [facility] [place] [address] * (ABNORMAL) Hemogram (05/02/2020 3:13 PM EDT) WBC 11.8(H) 4.0 - 9.5 x10(3)/[facility] RBC 3.18(L) 4.00 - 5.21 x10(6)/[facility] Hemoglobin 8.8(L) 11.7 - 15.5 gm/dL [facility] Hematocrit 27.1(L) 35.7 - 45.8 % [facility] MCV 85.2 82.6 - 94.4 [facility] MCH 27.7 27.1 - 32.0 pg [facility] MCHC 32.5 31.7 - 35.0 gm/dL [facility] Platelets 420(H) 145 - 357 x10(3)/[facility] RDWSD 45.7 37.0 - 46.0 [facility] RDWCV 14.7(H) 11.5 - 14.1 % [facility] MPV 10.0 7.6 - 12.9 [facility] nRBC % Auto 0.0 % [facility] nRBC Abs Auto 0.000 0.000 - 0.000 x10(3)/mcL [facility] Blood specimen (specimen) 05/02/2020 3:13 PM EDT 05/02/2020 3:26 PM EDT Narrative Resulting Agency Comment Spec In Lab Milagros Velazquez MD HEMATOLOGY ORDERABLE S Performing Organization Address City/[facility]/ZIP Co de Phone Number [facility] [place] [address] * (ABNORMAL) POCT Glucose (05/02/2020 11:32 AM EDT) POC Glucose 233(H) 65 - 199 mg/dL [facility] Comment: Supplemental ranges: <140 mg/dL before meals <180 mg/dL all other times of the day Blood specimen (specimen) 05/02/2020 11:32 AM EDT 05/02/2020 11:32 AM EDT Milagros Velazquez MD POINT OF CARE TEST O RDERABLES Performing Organization Address [facility] Co de Phone Number [facility] [place] [address] * POCT Glucose (05/02/2020 7:46 AM EDT) POC Glucose 178 65 - 199 mg/dL [facility] Comment: Supplemental ranges: <140 mg/dL before meals <180 mg/dL all other times of the day Blood specimen (specimen) 05/02/2020 7:46 AM EDT 05/02/2020 7:46 AM EDT Milagros Velazquez MD POINT OF CARE TEST O RDERABLES Performing Organization Address [facility] Co de Phone Number [facility] [place] [address] * pro-Brain Natriuretic Peptide (05/02/2020 6:13 AM EDT) ProBNP 248 <=450 pg/mL [facility] Blood specimen (specimen) Venous Draw / Unknown 05/02/2020 6:13 AM EDT 05/02/2020 6:41 AM EDT Narrative Resulting Agency Comment Spec In Lab Milagros Velazquez MD CHEMISTRY ORDERABLES [facility] [place] [address] * (ABNORMAL) Differential, Automated (05/02/2020 6:13 AM EDT) Neutrophils % 71.3 % [facility] Neutr Abs (ANC) 9.88(H) 1.70 - 6.10 x10(3)/ L [facility] Lymphocytes % 18.6 % [facility] Lymphocytes Abs 2.6 0.9 - 3.2 x10(3)/ L [facility] Monocytes % 6.5 % [facility] Monocyte Abs 0.9 0.3 - 0.9 x10(3)/ L [facility] Eosinophils % 2.4 % [facility] Eosinophils Abs 0.3 0.0 - 0.4 x10(3)/[facility] Basophils % 0.6 % [facility] Basophils Abs 0.1 0.0 - 0.1 x10(3)/ L [facility] Immature Gran % 0.60 % [facility] Comment: Immature granulocytes(IG's)percentage and absolute count will include metamyelocytes, myelocytes, and promyelocytes. Blood smears from CBCs yielding IG's will be scanned manually for concordance. If this scan disagrees with the automated IG or if promyelocytes are noted, a manual differential will be performed. Nanci Gran Abs 0.09(H) 0.00 - 0.04 x10(3)/mc L [facility] Blood specimen (specimen) 05/02/2020 6:13 AM EDT 05/02/2020 6:31 AM EDT Narrative Resulting Agency Comment Spec In Lab Davon Leung MD HEMATOLOGY ORDERABLE S [facility] [place] [address] * (ABNORMAL) Hemogram (05/02/2020 6:13 AM EDT) WBC 13.9(H) 4.0 - 9.5 x10(3)/[facility] RBC 3.24(L) 4.00 - 5.21 x10(6)/[facility] Hemoglobin 8.9(L) 11.7 - 15.5 gm/dL [facility] Hematocrit 27.5(L) 35.7 - 45.8 % [facility] MCV 84.9 82.6 - 94.4 [facility] MCH 27.5 27.1 - 32.0 pg [facility] MCHC 32.4 31.7 - 35.0 gm/dL [facility] Platelets 405(H) 145 - 357 x10(3)/[facility] RDWSD 45.0 37.0 - 46.0 [facility] RDWCV 14.7(H) 11.5 - 14.1 % [facility] MPV 10.2 7.6 - 12.9 [facility] nRBC % Auto 0.0 % [facility] nRBC Abs Auto 0.000 0.000 - 0.000 x10(3)/[facility] Blood specimen (specimen) 05/02/2020 6:13 AM EDT 05/02/2020 6:31 AM EDT Narrative Resulting Agency Comment Spec In Lab Davon Leung MD HEMATOLOGY ORDERABLE S [facility] [place] [address] * Magnesium (05/02/2020 6:13 AM EDT) Magnesium 0.85 0.69 - 1.07 mmol/L [facility] Blood specimen (specimen) 05/02/2020 6:13 AM EDT 05/02/2020 6:31 AM EDT Narrative Resulting Agency Comment Spec In Lab Dale Dash MD CHEMISTRY ORDERABLES [facility] [place] [address] * (ABNORMAL) Comprehensive metabolic panel (non-fasting) (05/02/2020 6:13 AM EDT) Pathologist [facility] Glucose Lvl 164 65 - 199 mg/dL [facility] Comment:Diabetes: >=200 mg/d L plus symptoms BUN 28(H) 8 - 18 mg/dL [facility] Creatinine 0.78 0.70 - 1.20 mg/dL [facility] Sodium 139 135 - 145 mmol/L [facility] Potassium 4.0 3.5 - 5.0 mmol/L [facility] Comment: Please note: ??Patients with WBC >100,000 may have falsely elevated Potassium levels. ??For accurate Potassium quantification in these patients send serum separator tube (gold top) for subsequent determinations. ??Contact the Clinical Chemistry Laboratory if there are any questions. Chloride 105 98 - 107 mmol/L [facility] CO2 23 22 - 31 mmol/L [facility] Anion Gap 11 5 - 15 mmol/L [facility] Calcium 8.9 8.5 - 10.5 mg/dL [facility] Total Protein 5.9(L) 6.1 - 8.0 gm/dL [facility] Albumin 3.0(L) 3.2 - 5.2 gm/dL [facility] AST 9 0 - 30 unit/L [facility] ALT 10 0 - 30 unit/L [facility] Alk Phos 130(H) 35 - 105 unit/L [facility] Total Bilirubin 0.4 0.2 - 1.3 mg/dL [facility] Estimated GFR 72 >=60 mL/min/1. 73 m?? [facility] Comment: The eGFR was calculated using the CKD-EPI equation. As with all creatinine based estimates of kidney function, eGFR values calculated with the CKD-EPI equation are not accurate in patients with acute kidney failure, extremes of body mass or the acutely ill. [email or web address]/[email or web address]OBARTnkf eGFR 84 >=60 mL/min/1. 73 m?? [facility] Comment: The eGFR was calculated using the CKD-EPI equation. As with all creatinine based estimates of kidney function, eGFR values calculated with the CKD-EPI equation are not accurate in patients with acute kidney failure, extremes of body mass or the acutely ill. [email or web address]/[facility]OBARTnkf Blood specimen (specimen) 05/02/2020 6:13 AM EDT 05/02/2020 6:31 AM EDT Narrative Resulting Agency Comment Spec In Lab Dale Dash MD CHEMISTRY ORDERABLES Performing Organization Address [facility] Co de Phone Number [facility] [place] [address] * POCT Glucose (05/02/2020 3:20 AM EDT) POC Glucose 183 65 - 199 mg/dL [facility] Comment: Supplemental ranges: <140 mg/dL before meals <180 mg/dL all other times of the day Blood specimen (specimen) 05/02/2020 3:20 AM EDT 05/02/2020 3:20 AM EDT Milagros Velazquez MD POINT OF CARE TEST O RDERABLES Performing Organization Address City/[facility] Co de Phone Number [facility] [place] [address] * (ABNORMAL) POCT Glucose (05/01/2020 11:42 PM EDT) POC Glucose 224(H) 65 - 199 mg/dL [facility] Comment: Supplemental ranges: <140 mg/dL before meals <180 mg/dL all other times of the day Blood specimen (specimen) 05/01/2020 11:42 PM EDT 05/01/2020 11:42 PM EDT Milagros Velazquez MD POINT OF CARE TEST O RDERATOAN Performing Organization Address City/[facility]/ZIP Co de Phone Number [facility] [place] [address] * (ABNORMAL) POCT Glucose (05/01/2020 8:14 PM EDT) POC Glucose 202(H) 65 - 199 mg/dL [facility] Comment: Supplemental ranges: <140 mg/dL before meals <180 mg/dL all other times of the day Blood specimen (specimen) 05/01/2020 8:14 PM EDT 05/01/2020 8:14 PM EDT Milagros Velazquez MD POINT OF CARE TEST O RDERATOAN Performing Organization Address [facility] Co de Phone Number [facility] [place] [address] * (ABNORMAL) POCT Glucose (05/01/2020 4:51 PM EDT) POC Glucose 204(H) 65 - 199 mg/dL [facility] Comment: Supplemental ranges: <140 mg/dL before meals <180 mg/dL all other times of the day Blood specimen (specimen) 05/01/2020 4:51 PM EDT 05/01/2020 4:51 PM EDT Milagros Velazquez MD POINT OF CARE TEST O RDERATOAN Performing Organization Address City/[facility]/ZIP Co de Phone Number [facility] [place] [address] * (ABNORMAL) POCT Glucose (05/01/2020 11:52 AM EDT) POC Glucose 213(H) 65 - 199 mg/dL [facility] Comment: Supplemental ranges: <140 mg/dL before meals <180 mg/dL all other times of the day Blood specimen (specimen) 05/01/2020 11:52 AM EDT 05/01/2020 11:52 AM EDT Milagros Velazquez MD POINT OF CARE TEST O RDERATOAN Performing Organization Address City/[facility]/ZIP Co de Phone Number [facility] [place] [address] * POCT Glucose (05/01/2020 7:40 AM EDT) Pathologist [facility] POC Glucose 167 65 - 199 mg/dL [facility] Comment: Supplemental ranges: <140 mg/dL before meals <180 mg/dL all other times of the day Blood specimen (specimen) 05/01/2020 7:40 AM EDT 05/01/2020 7:40 AM EDT Dale Dsah MD POINT OF CARE TEST O ISAIAH [facility] [place] [address] * (ABNORMAL) Differential, Automated (05/01/2020 5:23 AM EDT) Neutrophils % 74.6 % [facility] Neutr Abs (ANC) 10.06(H) 1.70 - 6.10 x10(3)/mc L [facility] Lymphocytes % 14.7 % [facility] Lymphocytes Abs 2.0 0.9 - 3.2 x10(3)/mc L [facility] Monocytes % 6.9 % [facility] Monocyte Abs 0.9 0.3 - 0.9 x10(3)/mc L [facility] Eosinophils % 2.3 % [facility] Eosinophils Abs 0.3 0.0 - 0.4 x10(3)/[facility] Basophils % 0.5 % [facility] Basophils Abs 0.1 0.0 - 0.1 x10(3)/[facility] Immature Gran % 1.00 % [facility] Comment: Immature granulocytes(IG's)percentage and absolute count will include metamyelocytes, myelocytes, and promyelocytes. Blood smears from CBCs yielding IG's will be scanned manually for concordance. If this scan disagrees with the automated IG or if promyelocytes are noted, a manual differential will be performed. Nanci Gran Abs 0.14(H) 0.00 - 0.04 x10(3)/[facility] LABORATORY Blood specimen (specimen) 05/01/2020 5:23 AM EDT 05/01/2020 5:40 AM EDT Narrative Resulting Agency Comment Spec In Lab Davon Leung MD HEMATOLOGY ORDERABLE S [facility] [place] [address] * (ABNORMAL) Hemogram (05/01/2020 5:23 AM EDT) WBC 13.5(H) 4.0 - 9.5 x10(3)/[facility] LABORATORY RBC 3.38(L) 4.00 - 5.21 x10(6)/[facility] LABORATORY Hemoglobin 9.2(L) 11.7 - 15.5 gm/dL [facility]OR[facility]ORY Hematocrit 28.6(L) 35.7 - 45.8 % [facility] MCV 84.6 82.6 - 94.4 fL [facility] MCH 27.2 27.1 - 32.0 pg [facility] MCHC 32.2 31.7 - 35.0 gm/dL [facility] Platelets 372(H) 145 - 357 x10(3)/[facility] LABORATORY RDWSD 45.1 37.0 - 46.0 fL [facility] RDWCV 14.7(H) 11.5 - 14.1 % [facility] MPV 9.9 7.6 - 12.9 fL [facility] nRBC % Auto 0.0 % [facility] LABORATORY nRBC Abs Auto 0.000 0.000 - 0.000 x10(3)/[facility] LABORATORY Blood specimen (specimen) 05/01/2020 5:23 AM EDT 05/01/2020 5:40 AM EDT Narrative Resulting Agency Comment Spec In Lab Davon Leung MD HEMATOLOGY ORDERABLE S Performing Organization Address [facility] Co de Phone Number [facility] [place] [address] * Magnesium (05/01/2020 5:23 AM EDT) Magnesium 0.89 0.69 - 1.07 mmol/L [facility] Blood specimen (specimen) 05/01/2020 5:23 AM EDT 05/01/2020 5:40 AM EDT Narrative Resulting Agency Comment Spec In Lab Dale Dash MD CHEMISTRY ORDERABLES Performing Organization Address [facility] Co de Phone Number [facility] [place] [address] * (ABNORMAL) Comprehensive metabolic panel (non-fasting) (05/01/2020 5:23 AM EDT) Glucose Lvl 170 65 - 199 mg/dL [facility] Comment:Diabetes: >=200 mg/d L plus symptoms BUN 29(H) 8 - 18 mg/dL [facility] Creatinine 0.77 0.70 - 1.20 mg/dL [facility] Sodium 136 135 - 145 mmol/L [facility] Potassium 4.0 3.5 - 5.0 mmol/L [facility] Comment: Please note: ??Patients with WBC >100,000 may have falsely elevated Potassium levels. ??For accurate Potassium quantification in these patients send serum separator tube (gold top) for subsequent determinations. ??Contact the Clinical Chemistry Laboratory if there are any questions. Chloride 104 98 - 107 mmol/L [facility] CO2 22 22 - 31 mmol/L [facility] Anion Gap 10 5 - 15 mmol/L [facility] Calcium 8.8 8.5 - 10.5 mg/dL [facility] Total Protein 6.1 6.1 - 8.0 gm/dL [facility] Albumin 2.9(L) 3.2 - 5.2 gm/dL [facility] AST 10 0 - 30 unit/L [facility] ALT 11 0 - 30 unit/L [facility] Alk Phos 140(H) 35 - 105 unit/L [facility] Total Bilirubin 0.4 0.2 - 1.3 mg/dL [facility] Estimated GFR 73 >=60 mL/min/1. 73 m?? [facility] Comment: The eGFR was calculated using the CKD-EPI equation. As with all creatinine based estimates of kidney function, eGFR values calculated with the CKD-EPI equation are not accurate in patients with acute kidney failure, extremes of body mass or the acutely ill. [email or web address] eGFR 85 >=60 mL/min/1. 73 m?? [facility] Comment: The eGFR was calculated using the CKD-EPI equation. As with all creatinine based estimates of kidney function, eGFR values calculated with the CKD-EPI equation are not accurate in patients with acute kidney failure, extremes of body mass or the acutely ill. [email or web address]/[facility] Blood specimen (specimen) 05/01/2020 5:23 AM EDT 05/01/2020 5:40 AM EDT Narrative Resulting Agency Comment Spec In Lab Dale Li X, MD CHEMISTRY ORDERABLES Performing Organization Address [facility] Co de Phone Number [facility] [place] [address] * (ABNORMAL) POCT Glucose (05/01/2020 4:07 AM EDT) POC Glucose 204(H) 65 - 199 mg/dL [facility] Comment: Supplemental ranges: <140 mg/dL before meals <180 mg/dL all other times of the day Blood specimen (specimen) 05/01/2020 4:07 AM EDT 05/01/2020 4:07 AM EDT Dale Dash MD POINT OF CARE TEST O RDERABLES Performing Organization Address [facility] Co de Phone Number [facility] [place] [address] * POCT Glucose (04/30/2020 11:31 PM EDT) POC Glucose 196 65 - 199 mg/dL [facility] Comment: Supplemental ranges: <140 mg/dL before meals <180 mg/dL all other times of the day Blood specimen (specimen) 04/30/2020 11:31 PM EDT 04/30/2020 11:31 PM EDT Dale Dash MD POINT OF CARE TEST O RDROBIN Performing Organization Address [facility] Co de Phone Number [facility] [place] [address] * (ABNORMAL) POCT Glucose (04/30/2020 8:15 PM EDT) POC Glucose 210(H) 65 - 199 mg/dL [facility] Comment: Supplemental ranges: <140 mg/dL before meals <180 mg/dL all other times of the day Blood specimen (specimen) 04/30/2020 8:15 PM EDT 04/30/2020 8:15 PM EDT Dale Dash MD POINT OF CARE TEST O ISAIAH Performing Organization Address [facility] de Phone Number [facility] [place] [address] * (ABNORMAL) POCT Glucose (04/30/2020 3:37 PM EDT) POC Glucose 200(H) 65 - 199 mg/dL [facility] Comment: Supplemental ranges: <140 mg/dL before meals <180 mg/dL all other times of the day Blood specimen (specimen) 04/30/2020 3:37 PM EDT 04/30/2020 3:37 PM EDT Dale Dash MD POINT OF CARE TEST O ISAIAH Performing Organization Address [facility] de Phone Number [facility] [place] [address] * (ABNORMAL) POCT Glucose (04/30/2020 11:38 AM EDT) POC Glucose 258(H) 65 - 199 mg/dL [facility] Comment: Supplemental ranges: <140 mg/dL before meals <180 mg/dL all other times of the day Blood specimen (specimen) 04/30/2020 11:38 AM EDT 04/30/2020 11:38 AM EDT Dale Dash MD POINT OF CARE TEST O ISAIAH Performing Organization Address [facility] Co de Phone Number [facility] [place] [address] * EKG 12 Lead (04/30/2020 8:01 AM EDT) Ventricular rate 56 BPM MUSE SYSTEM Atrial Rate 56 BPM MUSE SYSTEM P-R Interval 158 ms MUSE SYSTEM QRS Duration 116 ms MUSE SYSTEM Q-T Interval 512 ms MUSE SYSTEM QTC Calculated (Bezet) 494 ms MUSE SYSTEM Calculated P [place] 18 degrees MUSE SYSTEM Calculated R [place] 9 degrees MUSE SYSTEM Calculated T [place] -21 degrees MUSE SYSTEM INTERPRETATION Sinus bradycardia Right bundle branch block Abnormal ECG When compared with ECG of 21-APR-2020 18:47, Vent. rate has decreased BY ??41 BPM Left axis deviation is no longer Present I personally reviewed the tracing and edited the fellows interpretation Confirmed by fellow Ross Sood ([id number]) on 04/30/2020 10:25:30 AM Confirmed by MD Pandya Stanislav ([id number]) on 04/30/2020 4:45:51 PM MUSE SYSTEM 04/30/2020 8:01 AM EDT 04/30/2020 4:45 PM EDT Dale Dash MD ECG ORDERABLES Performing Organization Address City/[facility]/ZIP Co de Phone Number MUSE SYSTEM * POCT Glucose (04/30/2020 7:18 AM EDT) [facility] POC Glucose 166 65 - 199 mg/dL [facility] Comment: Supplemental ranges: <140 mg/dL before meals <180 mg/dL all other times of the day Blood specimen (specimen) 04/30/2020 7:18 AM EDT 04/30/2020 7:18 AM EDT Dale Dash MD POINT OF CARE TEST O RDERABLES Performing Organization Address [facility] Co de Phone Number [facility] [place] [address] * (ABNORMAL) Differential, Automated (04/30/2020 6:36 AM EDT) Pathologist [facility] Neutrophils % 75.5 % [facility]OR[facility] Neutr Abs (ANC) 13.00(H) 1.70 - 6.10 x10(3)/mc L [facility] Lymphocytes % 12.6 % [facility] Lymphocytes Abs 2.2 0.9 - 3.2 x10(3)/mc L [facility] Monocytes % 7.6 % [facility] Monocyte Abs 1.3(H) 0.3 - 0.9 x10(3)/mc L [facility] Eosinophils % 2.6 % [facility] Eosinophils Abs 0.4 0.0 - 0.4 x10(3)/[facility] LABORATORY Basophils % 0.5 % [facility] Basophils Abs 0.1 0.0 - 0.1 x10(3)/[facility] LABORATORY Immature Gran % 1.20 % [facility] Comment: Immature granulocytes(IG's)percentage and absolute count will include metamyelocytes, myelocytes, and promyelocytes. Blood smears from CBCs yielding IG's will be scanned manually for concordance. If this scan disagrees with the automated IG or if promyelocytes are noted, a manual differential will be performed. Nanci Gran Abs 0.20(H) 0.00 - 0.04 x10(3)/[facility] LABORATORY Blood specimen (specimen) 04/30/2020 6:36 AM EDT 04/30/2020 6:44 AM EDT Narrative Resulting Agency Comment Spec In Lab Davon Leung MD HEMATOLOGY ORDERABLE S [facility] [place] [address] * (ABNORMAL) Hemogram (04/30/2020 6:36 AM EDT) WBC 17.2(H) 4.0 - 9.5 x10(3)/[facility] LABORATORY RBC 3.60(L) 4.00 - 5.21 x10(6)/[facility] LABORATORY Hemoglobin 9.7(L) 11.7 - 15.5 gm/dL [facility] Hematocrit 31.1(L) 35.7 - 45.8 % [facility] MCV 86.4 82.6 - 94.4 fL [facility] MCH 26.9(L) 27.1 - 32.0 pg [facility] MCHC 31.2(L) 31.7 - 35.0 gm/dL [facility] Platelets 375(H) 145 - 357 x10(3)/[facility] LABORATORY RDWSD 47.2(H) 37.0 - 46.0 fL [facility] RDWCV 14.9(H) 11.5 - 14.1 % [facility] MPV 9.7 7.6 - 12.9 fL [facility] nRBC % Auto 0.0 % [facility] nRBC Abs Auto 0.000 0.000 - 0.000 x10(3)/mcL [facility] Blood specimen (specimen) 04/30/2020 6:36 AM EDT 04/30/2020 6:44 AM EDT Narrative Resulting Agency Comment Spec In Lab Davon Leung MD HEMATOLOGY ORDERABLE S Performing Organization Address City/[facility]/ZIP Co de Phone Number [facility] [place] [address] * Magnesium (04/30/2020 6:36 AM EDT) Magnesium 0.94 0.69 - 1.07 mmol/L [facility] Blood specimen (specimen) 04/30/2020 6:36 AM EDT 04/30/2020 6:44 AM EDT Narrative Resulting Agency Comment Spec In Lab Dale Dash MD CHEMISTRY ORDERABLES Performing Organization Address [facility]/ZIP Co de Phone Number [facility] [place] [address] * (ABNORMAL) Comprehensive metabolic panel (non-fasting) (04/30/2020 6:36 AM EDT) Glucose Lvl 166 65 - 199 mg/dL [facility] Comment:Diabetes: >=200 mg/d L plus symptoms BUN 34(H) 8 - 18 mg/dL [facility] Creatinine 1.05 0.70 - 1.20 mg/dL [facility] Sodium 135 135 - 145 mmol/L [facility] Potassium 3.8 3.5 - 5.0 mmol/L [facility] Comment: Please note: ??Patients with WBC >100,000 may have falsely elevated Potassium levels. ??For accurate Potassium quantification in these patients send serum separator tube (gold top) for subsequent determinations. ??Contact the Clinical Chemistry Laboratory if there are any questions. Chloride 100 98 - 107 mmol/L [facility] CO2 22 22 - 31 mmol/L [facility] Anion Gap 13 5 - 15 mmol/L [facility] Calcium 8.5 8.5 - 10.5 mg/dL [facility] Total Protein 6.3 6.1 - 8.0 gm/dL [facility] Albumin 3.1(L) 3.2 - 5.2 gm/dL [facility] AST 14 0 - 30 unit/L [facility] ALT 12 0 - 30 unit/L [facility] Alk Phos 152(H) 35 - 105 unit/L [facility] Total Bilirubin 0.6 0.2 - 1.3 mg/dL [facility] Estimated GFR 50(L) >=60 mL/min/1. 73 m?? [facility] Comment: The eGFR was calculated using the CKD-EPI equation. As with all creatinine based estimates of kidney function, eGFR values calculated with the CKD-EPI equation are not accurate in patients with acute kidney failure, extremes of body mass or the acutely ill. [email or web address]/[facility] eGFR 58(L) >=60 mL/min/1. 73 m?? [facility] Comment: The eGFR was calculated using the CKD-EPI equation. As with all creatinine based estimates of kidney function, eGFR values calculated with the CKD-EPI equation are not accurate in patients with acute kidney failure, extremes of body mass or the acutely ill. [email or web address] Blood specimen (specimen) 04/30/2020 6:36 AM EDT 04/30/2020 6:44 AM EDT Narrative Resulting Agency Comment Spec In Lab Dale Dash MD CHEMISTRY ORDERABLES Performing Organization Address [facility] Co de Phone Number [facility] [place] [address] * POCT Glucose (04/30/2020 4:14 AM EDT) POC Glucose 190 65 - 199 mg/dL [facility] Comment: Supplemental ranges: <140 mg/dL before meals <180 mg/dL all other times of the day Blood specimen (specimen) 04/30/2020 4:14 AM EDT 04/30/2020 4:14 AM EDT Dale Dash MD POINT OF CARE TEST O ISAIAH Performing Organization Address [facility] de Phone Number [facility] [place] [address] * (ABNORMAL) POCT Glucose (04/29/2020 11:08 PM EDT) POC Glucose 218(H) 65 - 199 mg/dL [facility] Comment: Supplemental ranges: <140 mg/dL before meals <180 mg/dL all other times of the day Blood specimen (specimen) 04/29/2020 11:08 PM EDT 04/29/2020 11:08 PM EDT Dale Dahs MD POINT OF CARE TEST O ISAIAH Performing Organization Address [facility] Co de Phone Number [facility] [place] [address] * (ABNORMAL) POCT Glucose (04/29/2020 7:52 PM EDT) POC Glucose 204(H) 65 - 199 mg/dL [facility] Comment: Supplemental ranges: <140 mg/dL before meals <180 mg/dL all other times of the day Blood specimen (specimen) 04/29/2020 7:52 PM EDT 04/29/2020 7:52 PM EDT Dale Dash MD POINT OF CARE TEST O RDERATOAN [facility] [place] [address] * POCT Glucose (04/29/2020 4:17 PM EDT) POC Glucose 165 65 - 199 mg/dL [facility] Comment: Supplemental ranges: <140 mg/dL before meals <180 mg/dL all other times of the day Blood specimen (specimen) 04/29/2020 4:17 PM EDT 04/29/2020 4:17 PM EDT Dale Dash MD POINT OF CARE TEST O RDERATOAN Performing Organization Address City/[facility]/ZIP Co de Phone Number [facility] [place] [address] * Blood culture (04/29/2020 3:28 PM EDT) Blood Culture No growth at 5 days. [facility] Blood specimen (specimen) STRUCTURE OF RIGHT HAND / Unknown 04/29/2020 3:28 PM EDT 04/29/2020 4:21 PM EDT Narrative Resulting Agency Comment Spec In Lab Dale Dash MD MICROBIOLOGY - BLOOD ORDERABLES Performing Organization Address City/[facility]/ZIP Co de Phone Number [facility] [place] [address] * Blood culture (04/29/2020 3:28 PM EDT) Blood Culture No growth at 5 days. [facility] Blood specimen (specimen) STRUCTURE OF LEFT FOREARM / Unknown 04/29/2020 3:28 PM EDT 04/29/2020 4:21 PM EDT Comment:#1 Narrative Resulting Agency Comment Spec In Lab Dale Dash MD MICROBIOLOGY - BLOOD ORDERABLES [facility] [place] [address] * (ABNORMAL) POCT Glucose (04/29/2020 11:55 AM EDT) POC Glucose 227(H) 65 - 199 mg/dL [facility] Comment: Supplemental ranges: <140 mg/dL before meals <180 mg/dL all other times of the day Blood specimen (specimen) 04/29/2020 11:55 AM EDT 04/29/2020 11:55 AM EDT Dale Dash MD POINT OF CARE TEST O RDERATOAN Performing Organization Address City/[facility]/ZIP Co de Phone Number [facility] [place] [address] * POCT Glucose (04/29/2020 7:38 AM EDT) [facility] POC Glucose 125 65 - 199 mg/dL [facility] Comment: Supplemental ranges: <140 mg/dL before meals <180 mg/dL all other times of the day Blood specimen (specimen) 04/29/2020 7:38 AM EDT 04/29/2020 7:38 AM EDT Dale Dash MD POINT OF CARE TEST O RDERATOAN Performing Organization Address City/[facility]/ZIP Co de Phone Number [facility] [place] [address] * (ABNORMAL) Differential, Automated (04/29/2020 4:17 AM EDT) Pathologist [facility] Neutrophils % 78.6 % [facility] Neutr Abs (ANC) 14.16(H) 1.70 - 6.10 x10(3)/mc L [facility] Lymphocytes % 10.5 % [facility] Lymphocytes Abs 1.9 0.9 - 3.2 x10(3)/mc L [facility] Monocytes % 6.4 % [facility] Monocyte Abs 1.2(H) 0.3 - 0.9 x10(3)/mc L [facility] Eosinophils % 2.1 % [facility] Eosinophils Abs 0.4 0.0 - 0.4 x10(3)/[facility] LABORATORY Basophils % 0.6 % [facility] Basophils Abs 0.1 0.0 - 0.1 x10(3)/[facility] LABORATORY Immature Gran % 1.80 % [facility] Comment: Immature granulocytes(IG's)percentage and absolute count will include metamyelocytes, myelocytes, and promyelocytes. Blood smears from CBCs yielding IG's will be scanned manually for concordance. If this scan disagrees with the automated IG or if promyelocytes are noted, a manual differential will be performed. Nanci Gran Abs 0.32(H) 0.00 - 0.04 x10(3)/[facility] LABORATORY Blood specimen (specimen) 04/29/2020 4:17 AM EDT 04/29/2020 4:47 AM EDT Narrative Resulting Agency Comment Spec In Lab Davon Leung MD HEMATOLOGY ORDERABLE S [facility] [place] [address] * (ABNORMAL) Hemogram (04/29/2020 4:17 AM EDT) WBC 18.0(H) 4.0 - 9.5 x10(3)/[facility] LABORATORY RBC 3.63(L) 4.00 - 5.21 x10(6)/[facility] LABORATORY Hemoglobin 9.8(L) 11.7 - 15.5 gm/dL [facility] Hematocrit 30.1(L) 35.7 - 45.8 % [facility] MCV 82.9 82.6 - 94.4 fL [facility] MCH 27.0(L) 27.1 - 32.0 pg [facility] MCHC 32.6 31.7 - 35.0 gm/dL [facility] Platelets 397(H) 145 - 357 x10(3)/[facility] LABORATORY RDWSD 44.8 37.0 - 46.0 fL [facility] RDWCV 14.8(H) 11.5 - 14.1 % [facility] MPV 9.7 7.6 - 12.9 [facility] LABORATORY nRBC % Auto 0.0 % [facility] nRBC Abs Auto 0.000 0.000 - 0.000 x10(3)/[facility] LABORATORY Blood specimen (specimen) 04/29/2020 4:17 AM EDT 04/29/2020 4:47 AM EDT Narrative Resulting Agency Comment Spec In Lab Davon Leung MD HEMATOLOGY ORDERABLE S Performing Organization Address [facility] Co de Phone Number [facility] [place] [address] * Magnesium (04/29/2020 4:17 AM EDT) Magnesium 0.83 0.69 - 1.07 mmol/L [facility] Blood specimen (specimen) 04/29/2020 4:17 AM EDT 04/29/2020 4:47 AM EDT Narrative Resulting Agency Comment Spec In Lab Dale Dash MD CHEMISTRY ORDERABLES Performing Organization Address [facility] Co de Phone Number [facility] [place] [address] * (ABNORMAL) Comprehensive metabolic panel (non-fasting) (04/29/2020 4:17 AM EDT) Glucose Lvl 152 65 - 199 mg/dL [facility] Comment:Diabetes: >=200 mg/d L plus symptoms BUN 28(H) 8 - 18 mg/dL [facility] Comment:result rechecked-ssd Creatinine 0.96 0.70 - 1.20 mg/dL [facility] Sodium 136 135 - 145 mmol/L [facility] Potassium 3.9 3.5 - 5.0 mmol/L [facility] Comment: Please note: ??Patients with WBC >100,000 may have falsely elevated Potassium levels. ??For accurate Potassium quantification in these patients send serum separator tube (gold top) for subsequent determinations. ??Contact the Clinical Chemistry Laboratory if there are any questions. Chloride 103 98 - 107 mmol/L [facility] CO2 22 22 - 31 mmol/L [facility] Anion Gap 11 5 - 15 mmol/L [facility] Calcium 8.5 8.5 - 10.5 mg/dL [facility] Total Protein 6.0(L) 6.1 - 8.0 gm/dL [facility] Albumin 2.8(L) 3.2 - 5.2 gm/dL [facility] AST 15 0 - 30 unit/L [facility] ALT 16 0 - 30 unit/L [facility] Alk Phos 177(H) 35 - 105 unit/L [facility] Total Bilirubin 0.5 0.2 - 1.3 mg/dL [facility] Estimated GFR 56(L) >=60 mL/min/1. 73 m?? [facility] Comment: The eGFR was calculated using the CKD-EPI equation. As with all creatinine based estimates of kidney function, eGFR values calculated with the CKD-EPI equation are not accurate in patients with acute kidney failure, extremes of body mass or the acutely ill. [email or web address] eGFR 65 >=60 mL/min/1. 73 m?? [facility] Comment: The eGFR was calculated using the CKD-EPI equation. As with all creatinine based estimates of kidney function, eGFR values calculated with the CKD-EPI equation are not accurate in patients with acute kidney failure, extremes of body mass or the acutely ill. [email or web address] Blood specimen (specimen) 04/29/2020 4:17 AM EDT 04/29/2020 4:47 AM EDT Narrative Resulting Agency Comment Spec In Lab Dale Dash MD CHEMISTRY ORDERABLES Performing Organization Address [facility] Co de Phone Number [facility] [place] [address] * POCT Glucose (04/29/2020 4:16 AM EDT) POC Glucose 152 65 - 199 mg/dL [facility] Comment: Supplemental ranges: <140 mg/dL before meals <180 mg/dL all other times of the day Blood specimen (specimen) 04/29/2020 4:16 AM EDT 04/29/2020 4:16 AM EDT Dale Dash MD POINT OF CARE TEST O RDERABLES Performing Organization Address [facility] Co de Phone Number [facility] [place] [address] * POCT Glucose (04/29/2020 12:34 AM EDT) POC Glucose 171 65 - 199 mg/dL [facility] Comment: Supplemental ranges: <140 mg/dL before meals <180 mg/dL all other times of the day Blood specimen (specimen) 04/29/2020 12:34 AM EDT 04/29/2020 12:34 AM EDT Dale Dash MD POINT OF CARE TEST O RDERABLES Performing Organization Address [facility] Co de Phone Number [facility] [place] [address] * (ABNORMAL) POCT Glucose (04/28/2020 8:36 PM EDT) POC Glucose 205(H) 65 - 199 mg/dL [facility] Comment: Supplemental ranges: <140 mg/dL before meals <180 mg/dL all other times of the day Blood specimen (specimen) 04/28/2020 8:36 PM EDT 04/28/2020 8:36 PM EDT Dale Dash MD POINT OF CARE TEST O RDERATOAN Performing Organization Address [facility]/ZIP Co de Phone Number [facility] [place] [address] * POCT Glucose (04/28/2020 4:05 PM EDT) POC Glucose 185 65 - 199 mg/dL [facility] Comment: Supplemental ranges: <140 mg/dL before meals <180 mg/dL all other times of the day Blood specimen (specimen) 04/28/2020 4:05 PM EDT 04/28/2020 4:05 PM EDT Abiodun Chun MD POINT OF CARE TEST O ISAIAH Performing Organization Address [facility] Co de Phone Number [facility] [place] [address] * POCT Glucose (04/28/2020 12:47 PM EDT) POC Glucose 135 65 - 199 mg/dL [facility] Comment: Supplemental ranges: <140 mg/dL before meals <180 mg/dL all other times of the day Blood specimen (specimen) 04/28/2020 12:47 PM EDT 04/28/2020 12:47 PM EDT Abidoun Chun MD POINT OF CARE TEST O ISAIAH Performing Organization Address [facility] Co de Phone Number [facility] [place] [address] * POCT Glucose (04/28/2020 10:23 AM EDT) POC Glucose 150 65 - 199 mg/dL [facility] Comment: Supplemental ranges: <140 mg/dL before meals <180 mg/dL all other times of the day Blood specimen (specimen) 04/28/2020 10:23 AM EDT 04/28/2020 10:23 AM EDT Abiodun Chun MD POINT OF CARE TEST O RDERABLES [facility] [place] [address] * CT Guided Drain Peritoneal (04/28/2020 10:20 AM EDT) Anatomical Region Laterality Modality Computed Tomogra phy Impressions 04/28/2020 10:42 AM EDT Impression: Successful CT-guided drain placement in perihepatic abscess. Plan/Disposition: * ??To Angio recovery room, may discharge to inpatient floor when meets criteria. * ??Forward flush every 12 hours ??with 3-5 mL of normal saline. Record outputs daily. * ??Drainage catheter evaluation in approximately 2-3 weeks (already ordered by IR). Tax Representative(s): Resident/Fellow: None. Attending: Dr. Jos Collins Procedure/Teaching Attestation: ??I performed the procedure. Moderate Sedation Attestation: I was present during the intra-service time as documented by IR nurse. Thank you for letting us participate in the care of this patient. For questions regarding this report, please contact the number below. ? Narrative 04/28/2020 10:42 AM EDT RADIOLOGY PROCEDURE NOTE Procedure: CT Guided drain placement perihepatic abscess Indication for Procedure: 79-year-old female admitted with sepsis secondary to acute cholecystitis. ??Acute myocardial syndrome status post coronary artery stent placement. ??Cholecystostomy catheter in place. ??Worsening leukocytosis and sepsis. ??Perihepatic abscess. Consent: After discussing the risks (including infection, hemorrhage, damage to surrounding structures, respiratory depression) and benefits, the patient consented to the procedure. Method of Sedation: ??Due to the painful nature of the procedure, patient received split doses of intravenous fentanyl and versed from the IR nurse while pulse, pressure, and oxygen saturation were continuously monitored. 1% lidocaine was used for local analgesia. Technique: Prior to beginning the procedure, a standard time out Moment of Truth was performed. The patient was positioned supine on the CT table. ??An initial non-contrast localizing CT scan was obtained. ??A site for drain placement was identified on the skin with the assistance of the CT laser lights. The skin was marked, prepped, and local anesthesia provided with 1% lidocaine. Maximum sterile barrier technique was used throughout the procedure. ??An 18 ga needle was directed into the collection with intermittent CT fluoroscopy. Cloudy yellow purulent fluid was aspirated. ??A 0.035 inch guide wire was placed through the needle and position within the collection was confirmed with CT. The needle was removed over the wire, the access tract was dilated and a 10 Fr locking pigtail drainage catheter was placed. Post placement CT showed the catheter tip located within the target collection. ?? 40 mL of cloudy yellow purulent fluid was aspirated and the catheter connected to bulb drainage. ??A sample sent for gram stain and cultures. The drainage catheter was secured to the skin with 2-0 Prolene. A sterile dressing was applied. Medications: Please see EMR Contrast: None EBL: <5 cc Complications: No immediate Specimens: Sample sent for Gram stain and culture Findings: Pre-procedure CT showed perihepatic abscess, as on prior diagnostic CT of the abdomen and pelvis examination. Final CT showed a 10 Fr drain positioned in the perihepatic abscess. 40 mL of cloudy yellow purulent fluid removed. Procedure Note Jos Collins, DO - 04/28/2020 RADIOLOGY PROCEDURE NOTE Procedure: CT Guided drain placement perihepatic abscess Indication for Procedure: 79-year-old female admitted with sepsissecondary to acute cholecystitis. Acute myocardial syndrome status post coronaryartery stent placement. Cholecystostomy catheter in place. Worseningleukocytosis and sepsis. Perihepatic abscess. Consent: After discussing the risks (including infection, hemorrhage,damage to surrounding structures, respiratory depression) and benefits, thepatient consented to the procedure. Method of Sedation: Due to the painful nature of the procedure, patient received split doses of intravenous fentanyl and versed from the IR nursewhile pulse, pressure, and oxygen saturation were continuously monitored. 1%lidocaine was used for local analgesia. Technique: Prior to beginning the procedure, a standard time out Momentof Truth was performed. The patient was positioned supine on the CT table.An initial non-contrast localizing CT scan was obtained. A site for drain placement was identified on the skin with the assistance of the CT laserlights. The skin was marked, prepped, and local anesthesia provided with 1%lidocaine. Maximum sterile barrier technique was used throughout the procedure. An18 ga needle was directed into the collection with intermittent CT fluoroscopy.Cloudy yellow purulent fluid was aspirated. A 0.035 inch guide wire was placedthrough the needle and position within the collection was confirmed with CT. Theneedle was removed over the wire, the access tract was dilated and a 10 Frlocking pigtail drainage catheter was placed. Post placement CT showed thecatheter tip located within the target collection. 40 mL of cloudy yellow purulent fluid was aspirated and the catheterconnected to bulb drainage. A sample sent for gram stain and cultures. Thedrainage catheter was secured to the skin with 2-0 Prolene. A sterile dressingwas applied. Medications: Please see EMR Contrast: None EBL: <5 cc Complications: No immediate Specimens: Sample sent for Gram stain and culture Findings: Pre-procedure CT showed perihepatic abscess, as on priordiagnostic CT of the abdomen and pelvis examination. Final CT showed a 10 Fr drainpositioned in the perihepatic abscess. 40 mL of cloudy yellow purulent fluidremoved. IMPRESSION Impression: Successful CT-guided drain placement in perihepatic abscess. Plan/Disposition: * To Angio recovery room, may discharge to inpatient floor when meetscriteria. * Forward flush every 12 hours with 3-5 mL of normal saline. Recordoutputs daily. * Drainage catheter evaluation in approximately 2-3 weeks (alreadyordered by IR). Tax Representative(s): Resident/Fellow: None. Attending: Dr. Jos Collins Procedure/Teaching Attestation: I performed the procedure. Moderate Sedation Attestation: I was present during the intra-service timeas documented by IR nurse. Thank you for letting us participate in the care of this patient. Forquestions regarding this report, please contact the number below. Electronically signed by: Jos Collins [facility]([phone]), at 04/28/2020 10:42 AM Abiodun Chun MD IMG CT ORDERABLES * Anaerobic Culture (04/28/2020 10:00 AM EDT) Anaerobic Culture No anaerobic organisms isolated [facility] Fluid specimen (specimen) 04/28/2020 10:00 AM EDT 04/28/2020 10:50 AM EDT Comment:ARABELLA-HEPATIC ABSCESS S, CT GUIDED DRAIN PLACEMENT Narrative Resulting Agency Comment Spec In Lab Jeevan Black MD MICROBIOLOGY - GENER AL ORDERABLES [facility] [place] [address] * (ABNORMAL) Body Fluid Culture, Aerobic (04/28/2020 10:00 AM EDT) Body Fluid Culture One colony of Raoultella ornithinolytica (Klebsiella ornithinolytica)(A ) [facility] Gram Stain Few Neutrophils seen No microorganisms seen. (A) [facility] Organism Raoultella ornithinolytica (Klebsiella ornithinolytica)(A ) [facility] Fluid specimen (specimen) 04/28/2020 10:00 AM EDT 04/28/2020 10:50 AM EDT Comment:ARABELLA-HEPATIC ABSCESS S, CT GUIDED DRAIN PLACEMENT Narrative Resulting Agency Comment Spec In Lab Organism Antibiotic Method Susceptibility Raoultella ornithinolytica Amikacin VITEK 2 METHOD Sensitive Raoultella ornithinolytica Ampicillin + Sulbactam KIKI K 2 METHOD Sensitive Raoultella ornithinolytica Aztreonam VITEK 2 METHOD Sensitive Raoultella ornithinolytica Ceftazidime VITEK 2 METHOD <=1: Sensitive Raoultella ornithinolytica Ceftriaxone VITEK 2 METHOD Sensitive Raoultella ornithinolytica Ertapenem VITEK 2 METHOD Sensitive Raoultella ornithinolytica Gentamicin VITEK 2 METHOD Sensitive Raoultella ornithinolytica Levofloxacin VITEK 2 METHOD Sensitive Comment: Levofloxacin and Ciprofloxacin may not adequately treat infections in critically ill patients even when isolates test susceptible in the laboratory. Contact Infectious Disease before using in critically ill patients. Raoultella ornithinolytica Meropenem VITEK 2 METHOD <=0.25: Sensitive Raoultella ornithinolytica Piperacillin/Tazobactam VIT EK 2 METHOD <=4: Sensitive Raoultella ornithinolytica Tetracycline VITEK 2 METHOD Sensitive Raoultella ornithinolytica Tigecycline VITEK 2 METHOD Sensitive Raoultella ornithinolytica Tobramycin VITEK 2 METHOD Sensitive Raoultella ornithinolytica Trimethoprim/Sulfa VITEK 2 METHOD Sensitive Jeevan Black MD MICROBIOLOGY - GENER AL ORDERABLES Performing Organization Address [facility]/ZIP Co de Phone Number [facility] [place] [address] * POCT Glucose (04/28/2020 8:10 AM EDT) [facility] POC Glucose 134 65 - 199 mg/dL [facility] Comment: Supplemental ranges: <140 mg/dL before meals <180 mg/dL all other times of the day Blood specimen (specimen) 04/28/2020 8:10 AM EDT 04/28/2020 8:10 AM EDT Abiodun Chun MD POINT OF CARE TEST O RDERABLES Performing Organization Address [facility] Co de Phone Number [facility] [place] [address] * (ABNORMAL) pro-Brain Natriuretic Peptide (04/28/2020 4:05 AM EDT) Pathologist [facility] ProBNP 852(H) <=450 pg/mL [facility] Blood specimen (specimen) Venous Draw / Unknown 04/28/2020 4:05 AM EDT 04/28/2020 4:25 AM EDT Narrative Resulting Agency Comment Spec In Lab Hong Levi MD CHEMISTRY ORDERABLES Performing Organization Address [facility] Co de Phone Number [facility] [place] [address] * (ABNORMAL) Differential, Automated (04/28/2020 4:05 AM EDT) Neutrophils % 71.3 % [facility] Neutr Abs (ANC) 10.55(H) 1.70 - 6.10 x10(3)/[facility] Lymphocytes % 17.3 % [facility] Lymphocytes Abs 2.6 0.9 - 3.2 x10(3)/[facility] Monocytes % 5.5 % [facility] Monocyte Abs 0.8 0.3 - 0.9 x10(3)/[facility] Eosinophils % 2.8 % [facility] Eosinophils Abs 0.4 0.0 - 0.4 x10(3)/[facility] Basophils % 0.5 % [facility] Basophils Abs 0.1 0.0 - 0.1 x10(3)/[facility] Immature Gran % 2.60 % [facility] Comment: Immature granulocytes(IG's)percentage and absolute count will include metamyelocytes, myelocytes, and promyelocytes. Blood smears from CBCs yielding IG's will be scanned manually for concordance. If this scan disagrees with the automated IG or if promyelocytes are noted, a manual differential will be performed. Nanci Gran Abs 0.39(H) 0.00 - 0.04 x10(3)/[facility] Blood specimen (specimen) 04/28/2020 4:05 AM EDT 04/28/2020 4:23 AM EDT Narrative Resulting Agency Comment Spec In Lab Hong Levi MD HEMATOLOGY ORDERABLE S [facility] [place] [address] * (ABNORMAL) Hemogram (04/28/2020 4:05 AM EDT) WBC 14.8(H) 4.0 - 9.5 x10(3)/[facility] RBC 3.90(L) 4.00 - 5.21 x10(6)/[facility] Hemoglobin 10.5(L) 11.7 - 15.5 gm/dL [facility] Hematocrit 32.5(L) 35.7 - 45.8 % [facility] MCV 83.3 82.6 - 94.4 fL [facility] MCH 26.9(L) 27.1 - 32.0 pg [facility] MCHC 32.3 31.7 - 35.0 gm/dL [facility] Platelets 421(H) 145 - 357 x10(3[place] [place]DWSD 44.7 37.0 - 46.0 [facility]ORY RDWCV 14.6(H) 11.5 - 14.1 % [facility] MPV 9.6 7.6 - 12.9 fL [facility] nRBC % Auto 0.0 % [facility] nRBC Abs Auto 0.000 0.000 - 0.000 x10(3)/[facility] LAB[facility] Blood specimen (specimen) 04/28/2020 4:05 AM EDT 04/28/2020 4:23 AM EDT Narrative Resulting Agency Comment Spec In Lab Hong Levi MD HEMATOLOGY ORDERABLE S Performing Organization Address City/[facility]/[place] [address] * Magnesium (04/28/2020 4:05 AM EDT) Magnesium 0.78 0.69 - 1.07 mmol/L [facility] Blood specimen (specimen) 04/28/2020 4:05 AM EDT 04/28/2020 4:23 AM EDT Narrative Resulting Agency Comment Spec In Lab Dale Dash MD CHEMISTRY ORDERABLES Performing Organization Address City/[facility]/ZIP Co de Phone Number [facility] [place] [address] * (ABNORMAL) Comprehensive metabolic panel (non-fasting) (04/28/2020 4:05 AM EDT) Glucose Lvl 149 65 - 199 mg/dL [facility] Comment:Diabetes: >=200 mg/d L plus symptoms BUN 16 8 - 18 mg/dL [facility] Creatinine 0.80 0.70 - 1.20 mg/dL [facility] Sodium 137 135 - 145 mmol/L [facility] Potassium 3.5 3.5 - 5.0 mmol/L [facility] Comment: Please note: ??Patients with WBC >100,000 may have falsely elevated Potassium levels. ??For accurate Potassium quantification in these patients send serum separator tube (gold top) for subsequent determinations. ??Contact the Clinical Chemistry Laboratory if there are any questions. Chloride 105 98 - 107 mmol/L [facility] CO2 21(L) 22 - 31 mmol/L [facility] Anion Gap 11 5 - 15 mmol/L [facility] Calcium 8.7 8.5 - 10.5 mg/dL [facility] Total Protein 6.3 6.1 - 8.0 gm/dL [facility] Albumin 3.0(L) 3.2 - 5.2 gm/dL [facility] AST 12 0 - 30 unit/L [facility] ALT 12 0 - 30 unit/L [facility] Alk Phos 201(H) 35 - 105 unit/L [facility] Total Bilirubin 0.4 0.2 - 1.3 mg/dL [facility] Estimated GFR 70 >=60 mL/min/1. 73 m?? [facility] Comment: The eGFR was calculated using the CKD-EPI equation. As with all creatinine based estimates of kidney function, eGFR values calculated with the CKD-EPI equation are not accurate in patients with acute kidney failure, extremes of body mass or the acutely ill. http://1000memories/[facility]nkf eGFR 81 >=60 mL/min/1. 73 m?? [facility] Comment: The eGFR was calculated using the CKD-EPI equation. As with all creatinine based estimates of kidney function, eGFR values calculated with the CKD-EPI equation are not accurate in patients with acute kidney failure, extremes of body mass or the acutely ill. http://1000memories/[facility] Blood specimen (specimen) 04/28/2020 4:05 AM EDT 04/28/2020 4:23 AM EDT Narrative Resulting Agency Comment Spec In Lab Dale Dash MD CHEMISTRY ORDERABLES Performing Organization Address [facility] Co de Phone Number [facility] [place] [address] * POCT Glucose (04/28/2020 3:28 AM EDT) POC Glucose 161 65 - 199 mg/dL [facility] Comment: Supplemental ranges: <140 mg/dL before meals <180 mg/dL all other times of the day Blood specimen (specimen) 04/28/2020 3:28 AM EDT 04/28/2020 3:28 AM EDT Abiodun Chun MD POINT OF CARE TEST O RDERABLES Performing Organization Address [facility] Co de Phone Number [facility] [place] [address] * (ABNORMAL) POCT Glucose (04/27/2020 11:33 PM EDT) POC Glucose 205(H) 65 - 199 mg/dL [facility] Comment: Supplemental ranges: <140 mg/dL before meals <180 mg/dL all other times of the day Blood specimen (specimen) 04/27/2020 11:33 PM EDT 04/27/2020 11:33 PM EDT Abiodun Chun MD POINT OF CARE TEST O RDERABLES Performing Organization Address [facility] Co de Phone Number [facility] [place] [address] * (ABNORMAL) POCT Glucose (04/27/2020 8:03 PM EDT) POC Glucose 274(H) 65 - 199 mg/dL [facility] Comment: Supplemental ranges: <140 mg/dL before meals <180 mg/dL all other times of the day Blood specimen (specimen) 04/27/2020 8:03 PM EDT 04/27/2020 8:03 PM EDT Abiodun Chun MD POINT OF CARE TEST O RDERABLES Performing Organization Address City/[facility]/ZIP Co de Phone Number [facility] [place] [address] * POCT Glucose (04/27/2020 4:23 PM EDT) POC Glucose 155 65 - 199 mg/dL [facility] Comment: Supplemental ranges: <140 mg/dL before meals <180 mg/dL all other times of the day Blood specimen (specimen) 04/27/2020 4:23 PM EDT 04/27/2020 4:23 PM EDT Abiodun Chun MD POINT OF CARE TEST O ISAIAH Performing Organization Address City/[facility]/ZIP Co de Phone Number [facility] [place] [address] * CT Abdomen & Pelvis w Contrast (04/27/2020 3:49 PM EDT) Anatomical Region Laterality Modality Abdomen, Pelvis Computed Tomogra phy Impressions 04/27/2020 4:29 PM EDT An abscess 1. ??There is a new fluid collection between the liver and diaphragm as noted above this is consistent with some diaphragmatic abscess. There is a right-sided subpulmonic effusion as well. 2. ??Small left effusion. 3. ??9 mm homogeneous hypodensity in the spleen with Hounsfield units of 10. These are benign imaging features and no follow-up is required per ACR incidental findings committee White paper of 2013. 4. ??Free fluid in the abdomen and pelvis, greatest in the pelvis. Thank you for letting us participate in the care of this patient. For questions regarding this report, please contact the number below. ? Electronically signed by: Logan Sanabria [facility] ([phone]), at 04/27/2020 4:29 PM Narrative 04/27/2020 4:29 PM EDT EXAMINATION: CT ABDOMEN AND PELVIS W CONTRAST CLINICAL HISTORY: Abdominal infection suspected - Include more detail below perc arron tube placed for acute cholecystitis. Concern for continued abdominal infection including possible abscess TECHNIQUE: Helical CT of the abdomen and pelvis was performed following the intravenous administration of contrast. Administered 96.0 ml of OMNIPAQUE 350.00 mg/ml. Oral contrast was administered. COMPARISON: 04/18/2020 CT abdomen pelvis without contrast FINDINGS: Lower chest: Right-sided subpulmonic pleural effusion with adjacent lung consolidation, consistent with compressive atelectasis. Small left-sided pleural effusion also demonstrated. There is cardiac annular calcification and coronary artery stent noted. Liver: Normal size without lesions. There is decreased attenuation liver diffusely, consistent with fatty infiltration. Bile ducts: Nondilated. Gallbladder: Percutaneous pigtail gallbladder drainage catheters is generated. The gallbladder is largely decompressed and the pigtail portion of the catheter appears to be properly positioned within the gallbladder. There are no extraluminal sidehole was demonstrated. Pancreas: Normal attenuation without ductal dilatation. Spleen: Homogeneous Hypodensity in the mid spleen anteriorly has Hounsfield units of 10 which is consistent with benign imaging features. Adrenals: Normal. Kidneys: Normal. Symmetric enhancement. No renal calculi. Urinary Bladder: Normal. Vasculature: Mild atherosclerotic calcification. No aneurysm. Lymph Nodes: No enlarged lymph nodes. Bowel: Nondilated, no wall thickening. ?? Peritoneum and mesentery: There is a new, subdiaphragmatic collection. The collection is greatest anteriorly lies between the liver and diaphragm, measuring 5.1 x 3.2 cm. A thinner portion of the collection extends posteriorly and it measures at least 10 cm anterior posteriorly. The collection results in some scalloping mass effect on the adjacent liver. There is free fluid dependently in the pelvis. Trace amount of fluid is seen in the colic gutters bilaterally. Abdominal wall: Normal. Reproductive organs: Normal. Osseous structures: No suspicious lesions. Procedure Note Logan Sanabria MD - 04/27/2020 EXAMINATION: CT ABDOMEN AND PELVIS W CONTRAST CLINICAL HISTORY: Abdominal infection suspected - Include more detailbelow perc arron tube placed for acute cholecystitis. Concern for continuedabdominal infection including possible abscess TECHNIQUE: Helical CT of the abdomen and pelvis was performed followingthe intravenous administration of contrast. Administered 96.0 ml of [id number] mg/ml. Oral contrast was administered. COMPARISON: 04/18/2020 CT abdomen pelvis without contrast FINDINGS: Lower chest: Right-sided subpulmonic pleural effusion with adjacent lung consolidation, consistent with compressive atelectasis. Small left-sidedpleural effusion also demonstrated. There is cardiac annular calcification andcoronary artery stent noted. Liver: Normal size without lesions. There is decreased attenuation liver diffusely, consistent with fatty infiltration. Bile ducts: Nondilated. Gallbladder: Percutaneous pigtail gallbladder drainage catheters isgenerated. The gallbladder is largely decompressed and the pigtail portion of thecatheter appears to be properly positioned within the gallbladder. There are no extraluminal sidehole was demonstrated. Pancreas: Normal attenuation without ductal dilatation. Spleen: Homogeneous Hypodensity in the mid spleen anteriorly hasHounsfield units of 10 which is consistent with benign imaging features. Adrenals: Normal. Kidneys: Normal. Symmetric enhancement. No renal calculi. Urinary Bladder: Normal. Vasculature: Mild atherosclerotic calcification.No aneurysm. Lymph Nodes: No enlarged lymph nodes. Bowel: Nondilated, no wall thickening. Peritoneum and mesentery: There is a new, subdiaphragmatic collection.The collection is greatest anteriorly lies between the liver and diaphragm, measuring 5.1 x 3.2 cm. A thinner portion of the collection extendsposteriorly and it measures at least 10 cm anterior posteriorly. The collectionresults in some scalloping mass effect on the adjacent liver. There is free fluid dependently in the pelvis. Trace amount of fluid is seen in the colicgutters bilaterally. Abdominal wall: Normal. Reproductive organs: Normal. Osseous structures: No suspicious lesions. IMPRESSION An abscess 1. There is a new fluid collection between the liver and diaphragm asnoted above this is consistent with some diaphragmatic abscess. There is aright-sided subpulmonic effusion as well. 2. Small left effusion. 3. 9 mm homogeneous hypodensity in the spleen with Hounsfield units of10. These are benign imaging features and no follow-up is required per ACR incidental findings committee White paper of 2013. 4. Free fluid in the abdomen and pelvis, greatest in the pelvis. Thank you for letting us participate in the care of this patient. Forquestions regarding this report, please contact the number below. Abiodun Chun MD IMG CT ORDERABLES * POCT Glucose (04/27/2020 11:59 AM EDT) POC Glucose 192 65 - 199 mg/dL [facility] Comment: Supplemental ranges: <140 mg/dL before meals <180 mg/dL all other times of the day Blood specimen (specimen) 04/27/2020 11:59 AM EDT 04/27/2020 11:59 AM EDT Abiodun Chun MD POINT OF CARE TEST O RDERABLES [facility] [place] [address] * XR Chest One View (04/27/2020 10:47 AM EDT) Anatomical Region Laterality Modality Chest N/A Digital Radiogra phy Impressions 04/27/2020 11:51 AM EDT Improved subpulmonic right-sided pleural effusion. Equivocal trace left effusion. I have personally reviewed the image(s) and the resident's interpretation and agree with the findings, Mayte Pollack at 04/27/2020 11:51 AM Thank you for letting us participate in the care of this patient. For questions regarding this report, please contact the number below. ? Electronically signed by: Mayte Pollack [facility] ([phone]), at 04/27/2020 11:51 AM Narrative 04/27/2020 11:51 AM EDT EXAMINATION: XR CHEST ONE VIEW CLINICAL HISTORY: 79F with increased SOB and increasing WBC. Please assess for pulmonary process including infection TECHNIQUE: Portable AP view of the chest. COMPARISON: 04/22/2020 FINDINGS: Persistent right subpulmonic pleural effusion, but improved from prior Left lung is unchanged and clear. However, question trace left effusion. No pneumothorax. ?? The cardiomediastinal silhouette is unchanged. No acute osseous findings. Procedure Note Mayte Pollack MD - 04/27/2020 EXAMINATION: XR CHEST ONE VIEW CLINICAL HISTORY: 79F with increased SOB and increasing WBC. Please assessfor pulmonary process including infection TECHNIQUE: Portable AP view of the chest. COMPARISON: 04/22/2020 FINDINGS: Persistent right subpulmonic pleural effusion, but improved from prior Left lung is unchanged and clear. However, question trace left effusion. No pneumothorax. The cardiomediastinal silhouette is unchanged. No acute osseous findings. IMPRESSION Improved subpulmonic right-sided pleural effusion. Equivocal trace left effusion. I have personally reviewed the image(s) and the resident's interpretationand agree with the findings, Mayte Pollack at 04/27/2020 11:51 AM Thank you for letting us participate in the care of this patient. Forquestions regarding this report, please contact the number below. Electronically signed by: Mayte Pollack [facility]([phone]), at 04/27/2020 11:51 AM Abiodun Chun MD IMG DX ORDERABLES * POCT Glucose (04/27/2020 7:43 AM EDT) POC Glucose 138 65 - 199 mg/dL [facility] Comment: Supplemental ranges: <140 mg/dL before meals <180 mg/dL all other times of the day Blood specimen (specimen) 04/27/2020 7:43 AM EDT 04/27/2020 7:43 AM EDT Abiodun Chun MD POINT OF CARE TEST O RDERABLES [facility] [place] [address] * (ABNORMAL) Differential, Automated (04/27/2020 4:41 AM EDT) Neutrophils % 70.7 % [facility] Neutr Abs (ANC) 10.64(H) 1.70 - 6.10 x10(3)/mc L [facility] Lymphocytes % 14.9 % [facility] Lymphocytes Abs 2.2 0.9 - 3.2 x10(3)/ L [facility] Monocytes % 6.2 % [facility] Monocyte Abs 0.9 0.3 - 0.9 x10(3)/ L [facility] Eosinophils % 3.3 % [facility] Eosinophils Abs 0.5(H) 0.0 - 0.4 x10(3)/mc L [facility] Basophils % 0.5 % [facility] Basophils Abs 0.1 0.0 - 0.1 x10(3)/mc L [facility] Immature Gran % 4.40 % [facility] Comment: Immature granulocytes(IG's)percentage and absolute count will include metamyelocytes, myelocytes, and promyelocytes. Blood smears from CBCs yielding IG's will be scanned manually for concordance. If this scan disagrees with the automated IG or if promyelocytes are noted, a manual differential will be performed. Nanci Gran Abs 0.67(H) 0.00 - 0.04 x10(3)/ L [facility] Blood specimen (specimen) 04/27/2020 4:41 AM EDT 04/27/2020 4:54 AM EDT Narrative Resulting Agency Comment Spec In Lab Hong Levi MD HEMATOLOGY ORDERABLE S [facility] [place] [address] * (ABNORMAL) Hemogram (04/27/2020 4:41 AM EDT) WBC 15.1(H) 4.0 - 9.5 x10(3)/[facility] RBC 3.83(L) 4.00 - 5.21 x10(6)/[facility] Hemoglobin 10.3(L) 11.7 - 15.5 gm/dL [facility] Hematocrit 32.1(L) 35.7 - 45.8 % [facility] MCV 83.8 82.6 - 94.4 fL [facility] MCH 26.9(L) 27.1 - 32.0 pg [facility] MCHC 32.1 31.7 - 35.0 gm/dL [facility] Platelets 422(H) 145 - 357 x10(3[place] [place] 44.9 37.0 - 46.0 [facility] RDWCV 14.8(H) 11.5 - 14.1 % [facility] MPV 9.6 7.6 - 12.9 [facility] nRBC % Auto 0.1 % [facility] nRBC Abs Auto 0.020(H) 0.000 - 0.000 x10(3)/[facility] Blood specimen (specimen) 04/27/2020 4:41 AM EDT 04/27/2020 4:54 AM EDT Narrative Resulting Agency Comment Spec In Lab Hong Levi MD HEMATOLOGY ORDERABLE S Performing Organization Address City/[facility]/ZIP Co de Phone Number [facility] [place] [address] * Magnesium (04/27/2020 4:41 AM EDT) Magnesium 0.76 0.69 - 1.07 mmol/L [facility] Blood specimen (specimen) 04/27/2020 4:41 AM EDT 04/27/2020 4:54 AM EDT Narrative Resulting Agency Comment Spec In Lab Dale Dash MD CHEMISTRY ORDERABLES Performing Organization Address [facility] Co de Phone Number [facility] [place] [address] * (ABNORMAL) Comprehensive metabolic panel (non-fasting) (04/27/2020 4:41 AM EDT) Glucose Lvl 167 65 - 199 mg/dL [facility] Comment:Diabetes: >=200 mg/d L plus symptoms BUN 12 8 - 18 mg/dL [facility] Creatinine 0.63(L) 0.70 - 1.20 mg/dL [facility] Sodium 138 135 - 145 mmol/L [facility] Potassium 3.5 3.5 - 5.0 mmol/L [facility] Comment: Please note: ??Patients with WBC >100,000 may have falsely elevated Potassium levels. ??For accurate Potassium quantification in these patients send serum separator tube (gold top) for subsequent determinations. ??Contact the Clinical Chemistry Laboratory if there are any questions. Chloride 103 98 - 107 mmol/L [facility] CO2 23 22 - 31 mmol/L [facility] Anion Gap 12 5 - 15 mmol/L [facility] Calcium 8.7 8.5 - 10.5 mg/dL [facility] Total Protein 6.2 6.1 - 8.0 gm/dL [facility] Albumin 2.9(L) 3.2 - 5.2 gm/dL [facility] AST 12 0 - 30 unit/L [facility] ALT 13 0 - 30 unit/L [facility] Alk Phos 230(H) 35 - 105 unit/L [facility] Total Bilirubin 0.5 0.2 - 1.3 mg/dL [facility] Estimated GFR 85 >=60 mL/min/1. 73 m?? [facility] Comment: The eGFR was calculated using the CKD-EPI equation. As with all creatinine based estimates of kidney function, eGFR values calculated with the CKD-EPI equation are not accurate in patients with acute kidney failure, extremes of body mass or the acutely ill. http://1000memories/[facility]ARTnkf eGFR 99 >=60 mL/min/1. 73 m?? [facility] Comment: The eGFR was calculated using the CKD-EPI equation. As with all creatinine based estimates of kidney function, eGFR values calculated with the CKD-EPI equation are not accurate in patients with acute kidney failure, extremes of body mass or the acutely ill. http://1000memories/[facility]ARTnkf Blood specimen (specimen) 04/27/2020 4:41 AM EDT 04/27/2020 4:54 AM EDT Narrative Resulting Agency Comment Spec In Lab Dale Dash MD CHEMISTRY ORDERABLES [facility] [place] [address] * POCT Glucose (04/27/2020 4:12 AM EDT) POC Glucose 170 65 - 199 mg/dL [facility] Comment: Supplemental ranges: <140 mg/dL before meals <180 mg/dL all other times of the day Blood specimen (specimen) 04/27/2020 4:12 AM EDT 04/27/2020 4:12 AM EDT Abiodun Chun MD POINT OF CARE TEST O RDERABLES Performing Organization Address City/[facility]/ZIP Co de Phone Number [facility] [place] [address] * POCT Glucose (04/27/2020 12:14 AM EDT) POC Glucose 187 65 - 199 mg/dL [facility] Comment: Supplemental ranges: <140 mg/dL before meals <180 mg/dL all other times of the day Blood specimen (specimen) 04/27/2020 12:14 AM EDT 04/27/2020 12:14 AM EDT Abiodun Chun MD POINT OF CARE TEST O ISAIAH Performing Organization Address [facility] Co de Phone Number [facility] [place] [address] * POCT Glucose (04/26/2020 8:19 PM EDT) POC Glucose 186 65 - 199 mg/dL [facility] Comment: Supplemental ranges: <140 mg/dL before meals <180 mg/dL all other times of the day Blood specimen (specimen) 04/26/2020 8:19 PM EDT 04/26/2020 8:19 PM EDT Abiodun Chun MD POINT OF CARE TEST O ISAIAH Performing Organization Address [facility] Co de Phone Number [facility] [place] [address] * POCT Glucose (04/26/2020 4:52 PM EDT) POC Glucose 162 65 - 199 mg/dL [facility] Comment: Supplemental ranges: <140 mg/dL before meals <180 mg/dL all other times of the day Blood specimen (specimen) 04/26/2020 4:52 PM EDT 04/26/2020 4:52 PM EDT Abiodun Chun MD POINT OF CARE TEST O RDERABLES Performing Organization Address [facility] Co de Phone Number [facility] [place] [address] * (ABNORMAL) POCT Glucose (04/26/2020 11:50 AM EDT) POC Glucose 215(H) 65 - 199 mg/dL [facility] Comment: Supplemental ranges: <140 mg/dL before meals <180 mg/dL all other times of the day Blood specimen (specimen) 04/26/2020 11:50 AM EDT 04/26/2020 11:50 AM EDT Abiodun Chun MD POINT OF CARE TEST O RDERATOAN Performing Organization Address [facility] Co de Phone Number [facility] [place] [address] * POCT Glucose (04/26/2020 7:43 AM EDT) POC Glucose 175 65 - 199 mg/dL [facility] Comment: Supplemental ranges: <140 mg/dL before meals <180 mg/dL all other times of the day Blood specimen (specimen) 04/26/2020 7:43 AM EDT 04/26/2020 7:43 AM EDT Abiodun Chun MD POINT OF CARE TEST O RDERATOAN Performing Organization Address [facility] Co de Phone Number [facility] [place] [address] * POCT Glucose (04/26/2020 5:07 AM EDT) POC Glucose 163 65 - 199 mg/dL [facility] Comment: Supplemental ranges: <140 mg/dL before meals <180 mg/dL all other times of the day Blood specimen (specimen) 04/26/2020 5:07 AM EDT 04/26/2020 5:07 AM EDT Abiodun Chun MD POINT OF CARE TEST O RDERABLES Performing Organization Address City/[facility]/ZIP Co de Phone Number [facility] [place] [address] * (ABNORMAL) Differential, Automated (04/26/2020 4:42 AM EDT) Neutrophils % 66.7 % [facility] Neutr Abs (ANC) 9.28(H) 1.70 - 6.10 x10(3)/ L [facility] Lymphocytes % 16.8 % [facility] Lymphocytes Abs 2.3 0.9 - 3.2 x10(3)/[facility] Monocytes % 5.7 % [facility] Monocyte Abs 0.8 0.3 - 0.9 x10(3)/[facility] Eosinophils % 3.7 % [facility] Eosinophils Abs 0.5(H) 0.0 - 0.4 x10(3)/[facility] Basophils % 0.8 % [facility] Basophils Abs 0.1 0.0 - 0.1 x10(3)/[facility] Immature Gran % 6.30 % [facility] Comment: Immature granulocytes(IG's)percentage and absolute count will include metamyelocytes, myelocytes, and promyelocytes. Blood smears from CBCs yielding IG's will be scanned manually for concordance. If this scan disagrees with the automated IG or if promyelocytes are noted, a manual differential will be performed. Nanci Gran Abs 0.88(H) 0.00 - 0.04 x10(3)/ L [facility] Blood specimen (specimen) 04/26/2020 4:42 AM EDT 04/26/2020 4:54 AM EDT Narrative Resulting Agency Comment Spec In Lab Hong Levi MD HEMATOLOGY ORDERABLE S Performing Organization Address [facility]/ZIP Co de Phone Number [facility] [place] [address] * (ABNORMAL) Hemogram (04/26/2020 4:42 AM EDT) WBC 13.9(H) 4.0 - 9.5 x10(3)/[facility] RBC 3.72(L) 4.00 - 5.21 x10(6)/[facility] Hemoglobin 10.0(L) 11.7 - 15.5 gm/dL [facility] Hematocrit 31.5(L) 35.7 - 45.8 % [facility] MCV 84.7 82.6 - 94.4 fL [facility] MCH 26.9(L) 27.1 - 32.0 pg [facility] MCHC 31.7 31.7 - 35.0 gm/dL [facility] Platelets 398(H) 145 - 357 x10(3[place] 46.0 37.0 - 46.0 [facility] RDWCV 14.9(H) 11.5 - 14.1 % [facility] MPV 9.2 7.6 - 12.9 fL [facility] nRBC % Auto 0.2 % [facility] nRBC Abs Auto 0.030(H) 0.000 - 0.000 x10(3)/[facility] Blood specimen (specimen) 04/26/2020 4:42 AM EDT 04/26/2020 4:54 AM EDT Narrative Resulting Agency Comment Spec In Lab Hong Levi MD HEMATOLOGY ORDERABLE S [facility] [place] [address] * Magnesium (04/26/2020 4:42 AM EDT) Magnesium 0.86 0.69 - 1.07 mmol/L [facility] Blood specimen (specimen) 04/26/2020 4:42 AM EDT 04/26/2020 4:54 AM EDT Narrative Resulting Agency Comment Spec In Lab Dale Dash MD CHEMISTRY ORDERABLES [facility] [place] [address] * (ABNORMAL) Comprehensive metabolic panel (non-fasting) (04/26/2020 4:42 AM EDT) Glucose Lvl 172 65 - 199 mg/dL [facility] Comment:Diabetes: >=200 mg/d L plus symptoms BUN 14 8 - 18 mg/dL [facility] Creatinine 0.67(L) 0.70 - 1.20 mg/dL [facility] Sodium 142 135 - 145 mmol/L [facility] Potassium 3.3(L) 3.5 - 5.0 mmol/L [facility] Comment: Please note: ??Patients with WBC >100,000 may have falsely elevated Potassium levels. ??For accurate Potassium quantification in these patients send serum separator tube (gold top) for subsequent determinations. ??Contact the Clinical Chemistry Laboratory if there are any questions. Chloride 107 98 - 107 mmol/L [facility] CO2 22 22 - 31 mmol/L [facility] Anion Gap 13 5 - 15 mmol/L [facility] Calcium 8.6 8.5 - 10.5 mg/dL [facility] Total Protein 6.3 6.1 - 8.0 gm/dL [facility] Albumin 2.8(L) 3.2 - 5.2 gm/dL [facility] AST 14 0 - 30 unit/L [facility] ALT 14 0 - 30 unit/L [facility] Alk Phos 253(H) 35 - 105 unit/L [facility] Total Bilirubin 0.4 0.2 - 1.3 mg/dL [facility] Estimated GFR 84 >=60 mL/min/1. 73 m?? [facility] Comment: The eGFR was calculated using the CKD-EPI equation. As with all creatinine based estimates of kidney function, eGFR values calculated with the CKD-EPI equation are not accurate in patients with acute kidney failure, extremes of body mass or the acutely ill. http://1000memories/[facility]nk[facility] eGFR 97 >=60 mL/min/1. 73 m?? [facility] Comment: The eGFR was calculated using the CKD-EPI equation. As with all creatinine based estimates of kidney function, eGFR values calculated with the CKD-EPI equation are not accurate in patients with acute kidney failure, extremes of body mass or the acutely ill. http://1000memories/[facility] Blood specimen (specimen) 04/26/2020 4:42 AM EDT 04/26/2020 4:54 AM EDT Narrative Resulting Agency Comment Spec In Lab Dale Dash MD CHEMISTRY ORDERABLES Performing Organization Address [facility]/ZIP Co de Phone Number [facility] [place] [address] * (ABNORMAL) POCT Glucose (04/25/2020 10:39 PM EDT) POC Glucose 215(H) 65 - 199 mg/dL [facility] Comment: Supplemental ranges: <140 mg/dL before meals <180 mg/dL all other times of the day Blood specimen (specimen) 04/25/2020 10:39 PM EDT 04/25/2020 10:39 PM EDT Abiodun Chun MD POINT OF CARE TEST O RDERABLES Performing Organization Address City/[facility]/ZIP Co de Phone Number [facility] [place] [address] * POCT Glucose (04/25/2020 8:54 PM EDT) POC Glucose 175 65 - 199 mg/dL [facility] Comment: Supplemental ranges: <140 mg/dL before meals <180 mg/dL all other times of the day Blood specimen (specimen) 04/25/2020 8:54 PM EDT 04/25/2020 8:54 PM EDT Abiodun Chun MD POINT OF CARE TEST O ISAIAH Performing Organization Address [facility]/ZIP Co de Phone Number [facility] [place] [address] * POCT Glucose (04/25/2020 7:43 PM EDT) POC Glucose 198 65 - 199 mg/dL [facility] Comment: Supplemental ranges: <140 mg/dL before meals <180 mg/dL all other times of the day Blood specimen (specimen) 04/25/2020 7:43 PM EDT 04/25/2020 7:43 PM EDT Abiodun Chun MD POINT OF CARE TEST O ISAIAH Performing Organization Address [facility] Co de Phone Number [facility] [place] [address] * POCT Glucose (04/25/2020 5:35 PM EDT) POC Glucose 188 65 - 199 mg/dL [facility] Comment: Supplemental ranges: <140 mg/dL before meals <180 mg/dL all other times of the day Blood specimen (specimen) 04/25/2020 5:35 PM EDT 04/25/2020 5:35 PM EDT Abiodun Chun MD POINT OF CARE TEST O ISAIAH Performing Organization Address [facility]/ZIP Co de Phone Number [facility] [place] [address] * POCT Glucose (04/25/2020 12:21 PM EDT) POC Glucose 199 65 - 199 mg/dL [facility] Comment: Supplemental ranges: <140 mg/dL before meals <180 mg/dL all other times of the day Blood specimen (specimen) 04/25/2020 12:21 PM EDT 04/25/2020 12:21 PM EDT Abiodun Chun MD POINT OF CARE TEST O RDERABLES Performing Organization Address City/[facility]/ZIP Co de Phone Number [facility] [place] [address] * POCT Glucose (04/25/2020 7:37 AM EDT) Pathologist [facility] POC Glucose 147 65 - 199 mg/dL [facility] Comment: Supplemental ranges: <140 mg/dL before meals <180 mg/dL all other times of the day Blood specimen (specimen) 04/25/2020 7:37 AM EDT 04/25/2020 7:37 AM EDT Abiodun Chun MD POINT OF CARE TEST O POOLERATOAN Performing Organization Address [facility] Co de Phone Number [facility] [place] [address] * (ABNORMAL) Differential, Automated (04/25/2020 5:05 AM EDT) Pathologist [facility] Neutrophils % 63.5 % [facility] Neutr Abs (ANC) 8.95(H) 1.70 - 6.10 x10(3)/ L [facility] Lymphocytes % 18.9 % [facility] Lymphocytes Abs 2.7 0.9 - 3.2 x10(3)/ L [facility] Monocytes % 6.8 % [facility] Monocyte Abs 1.0(H) 0.3 - 0.9 x10(3)/mc L [facility] Eosinophils % 3.3 % [facility] Eosinophils Abs 0.5(H) 0.0 - 0.4 x10(3)/ L [facility] Basophils % 0.9 % [facility] [facility] Basophils Abs 0.1 0.0 - 0.1 x10(3)/ L [facility] Immature Gran % 6.60 % [facility] Comment: Immature granulocytes(IG's)percentage and absolute count will include metamyelocytes, myelocytes, and promyelocytes. Blood smears from CBCs yielding IG's will be scanned manually for concordance. If this scan disagrees with the automated IG or if promyelocytes are noted, a manual differential will be performed. Nanci Gran Abs 0.93(H) 0.00 - 0.04 x10(3)/mc L [facility] Blood specimen (specimen) 04/25/2020 5:05 AM EDT 04/25/2020 5:20 AM EDT Narrative Resulting Agency Comment Spec In Lab Hong Levi MD HEMATOLOGY ORDERABLE S [facility] [place] [address] * (ABNORMAL) Hemogram (04/25/2020 5:05 AM EDT) WBC 14.1(H) 4.0 - 9.5 x10(3)/[facility] LAB[facility]ATORY RBC 3.67(L) 4.00 - 5.21 x10(6)/[facility] LAB[facility]ORY Hemoglobin 10.0(L) 11.7 - 15.5 gm/dL [facility] Hematocrit 30.9(L) 35.7 - 45.8 % [facility] MCV 84.2 82.6 - 94.4 fL [facility] MCH 27.2 27.1 - 32.0 pg [facility] MCHC 32.4 31.7 - 35.0 gm/dL [facility] Platelets 396(H) 145 - 357 x10(3)/[facility] LAB[facility]ATORY RDWSD 45.8 37.0 - 46.0 fL [facility] RDWCV 15.0(H) 11.5 - 14.1 % [facility] MPV 9.5 7.6 - 12.9 fL [facility] nRBC % Auto 0.1 % [facility] nRBC Abs Auto 0.020(H) 0.000 - 0.000 x10(3)/mcL [facility] Blood specimen (specimen) 04/25/2020 5:05 AM EDT 04/25/2020 5:20 AM EDT Narrative Resulting Agency Comment Spec In Lab Hong Levi MD HEMATOLOGY ORDERABLE S Performing Organization Address [facility] Co de Phone Number [facility] [place] [address] * Magnesium (04/25/2020 5:05 AM EDT) Magnesium 0.79 0.69 - 1.07 mmol/L [facility] Blood specimen (specimen) 04/25/2020 5:05 AM EDT 04/25/2020 5:19 AM EDT Narrative Resulting Agency Comment Spec In Lab Dale Dash MD CHEMISTRY ORDERABLES Performing Organization Address [facility] Co de Phone Number [facility] [place] [address] * (ABNORMAL) Comprehensive metabolic panel (non-fasting) (04/25/2020 5:05 AM EDT) Glucose Lvl 138 65 - 199 mg/dL [facility] Comment:Diabetes: >=200 mg/d L plus symptoms BUN 16 8 - 18 mg/dL [facility] Creatinine 0.69(L) 0.70 - 1.20 mg/dL [facility] Sodium 142 135 - 145 mmol/L [facility] Potassium 3.1(L) 3.5 - 5.0 mmol/L [facility] Comment: Please note: ??Patients with WBC >100,000 may have falsely elevated Potassium levels. ??For accurate Potassium quantification in these patients send serum separator tube (gold top) for subsequent determinations. ??Contact the Clinical Chemistry Laboratory if there are any questions. Chloride 108(H) 98 - 107 mmol/L [facility] CO2 22 22 - 31 mmol/L [facility] Anion Gap 12 5 - 15 mmol/L [facility] Calcium 8.7 8.5 - 10.5 mg/dL [facility] Total Protein 6.1 6.1 - 8.0 gm/dL [facility] Albumin 2.6(L) 3.2 - 5.2 gm/dL [facility] AST 15 0 - 30 unit/L [facility] ALT 15 0 - 30 unit/L [facility] Alk Phos 239(H) 35 - 105 unit/L [facility] Total Bilirubin 0.4 0.2 - 1.3 mg/dL [facility] Estimated GFR 83 >=60 mL/min/1. 73 m?? [facility] Comment: The eGFR was calculated using the CKD-EPI equation. As with all creatinine based estimates of kidney function, eGFR values calculated with the CKD-EPI equation are not accurate in patients with acute kidney failure, extremes of body mass or the acutely ill. http://1000memories/[facility] eGFR 96 >=60 mL/min/1. 73 m?? [facility] Comment: The eGFR was calculated using the CKD-EPI equation. As with all creatinine based estimates of kidney function, eGFR values calculated with the CKD-EPI equation are not accurate in patients with acute kidney failure, extremes of body mass or the acutely ill. http://[email or web address] Blood specimen (specimen) 04/25/2020 5:05 AM EDT 04/25/2020 5:19 AM EDT Narrative Resulting Agency Comment Spec In Lab Dale Dash MD CHEMISTRY ORDERABLES [facility] [place] [address] * POCT Glucose (04/25/2020 4:06 AM EDT) POC Glucose 135 65 - 199 mg/dL [facility] Comment: Supplemental ranges: <140 mg/dL before meals <180 mg/dL all other times of the day Blood specimen (specimen) 04/25/2020 4:06 AM EDT 04/25/2020 4:06 AM EDT Abiodun Chun MD POINT OF CARE TEST O ISAIAH Performing Organization Address [facility] Co de Phone Number [facility] [place] [address] * (ABNORMAL) POCT Glucose (04/24/2020 11:19 PM EDT) POC Glucose 203(H) 65 - 199 mg/dL [facility] Comment: Supplemental ranges: <140 mg/dL before meals <180 mg/dL all other times of the day Blood specimen (specimen) 04/24/2020 11:19 PM EDT 04/24/2020 11:19 PM EDT Abiodun Chun MD POINT OF CARE TEST O ISAIAH Performing Organization Address [facility] Co de Phone Number [facility] [place] [address] * (ABNORMAL) POCT Glucose (04/24/2020 8:16 PM EDT) POC Glucose 241(H) 65 - 199 mg/dL [facility] Comment: Supplemental ranges: <140 mg/dL before meals <180 mg/dL all other times of the day Blood specimen (specimen) 04/24/2020 8:16 PM EDT 04/24/2020 8:16 PM EDT Abiodun Chun MD POINT OF CARE TEST O ISAIAH Performing Organization Address [facility] Co de Phone Number [facility] [place] [address] * (ABNORMAL) POCT Glucose (04/24/2020 5:08 PM EDT) POC Glucose 230(H) 65 - 199 mg/dL [facility] Comment: Supplemental ranges: <140 mg/dL before meals <180 mg/dL all other times of the day Blood specimen (specimen) 04/24/2020 5:08 PM EDT 04/24/2020 5:08 PM EDT Abiodun Chun MD POINT OF CARE TEST O RDERABLES Performing Organization Address City/[facility]/ZIP Co de Phone Number [facility] [place] [address] * (ABNORMAL) POCT Glucose (04/24/2020 11:48 AM EDT) POC Glucose 223(H) 65 - 199 mg/dL [facility] Comment: Supplemental ranges: <140 mg/dL before meals <180 mg/dL all other times of the day Blood specimen (specimen) 04/24/2020 11:48 AM EDT 04/24/2020 11:48 AM EDT Abiodun Chun MD POINT OF CARE TEST O RDERATOAN Performing Organization Address [facility] Co de Phone Number [facility] [place] [address] * POCT Glucose (04/24/2020 7:33 AM EDT) POC Glucose 179 65 - 199 mg/dL [facility] Comment: Supplemental ranges: <140 mg/dL before meals <180 mg/dL all other times of the day Blood specimen (specimen) 04/24/2020 7:33 AM EDT 04/24/2020 7:33 AM EDT Abiodun Chun MD POINT OF CARE TEST O RDERATOAN Performing Organization Address [facility] Co de Phone Number [facility] [place] [address] * Scan, Peripheral Blood (04/24/2020 4:58 AM EDT) Plat Estimate Increased [facility] RBC Morphology Abnormal [facility] Microcytes 1-5 /HPF [facility] Hypochromia Slight [facility] Platelet Clumps Present [facility] Blood specimen (specimen) 04/24/2020 4:58 AM EDT 04/24/2020 5:16 AM EDT Narrative Resulting Agency Comment Spec In Lab Hong Levi MD HEMATOLOGY ORDERABLE S [facility] [place] [address] * (ABNORMAL) Differential, Automated (04/24/2020 4:58 AM EDT) Neutrophils % 64.5 % [facility] Neutr Abs (ANC) 7.89(H) 1.70 - 6.10 x10(3)/[facility] LABORATORY Lymphocytes % 18.2 % [facility] Lymphocytes Abs 2.2 0.9 - 3.2 x10(3)/[facility] LABORATORY Monocytes % 8.3 % [facility] Monocyte Abs 1.0(H) 0.3 - 0.9 x10(3)/[facility] LABORATORY Eosinophils % 2.9 % [facility] Eosinophils Abs 0.4 0.0 - 0.4 x10(3)/[facility] LABORATORY Basophils % 0.9 % [facility] Basophils Abs 0.1 0.0 - 0.1 x10(3)/[facility] LABORATORY Immature Gran % 5.20 % [facility] Comment: Immature granulocytes(IG's)percentage and absolute count will include metamyelocytes, myelocytes, and promyelocytes. Blood smears from CBCs yielding IG's will be scanned manually for concordance. If this scan disagrees with the automated IG or if promyelocytes are noted, a manual differential will be performed. Nanci Gran Abs 0.64(H) 0.00 - 0.04 x10(3)/ L [facility] Blood specimen (specimen) 04/24/2020 4:58 AM EDT 04/24/2020 5:16 AM EDT Narrative Resulting Agency Comment Spec In Lab Hong Levi MD HEMATOLOGY ORDERABLE S Performing Organization Address City/[facility]/ZIP Co de Phone Number [facility] [place] [address] * (ABNORMAL) Hemogram (04/24/2020 4:58 AM EDT) WBC 12.2(H) 4.0 - 9.5 x10(3)/[facility] LABORATORY RBC 3.71(L) 4.00 - 5.21 x10(6)/[facility] LAB[facility]ATORY Hemoglobin 10.1(L) 11.7 - 15.5 gm/dL [facility] Hematocrit 31.2(L) 35.7 - 45.8 % [facility] MCV 84.1 82.6 - 94.4 [facility] MCH 27.2 27.1 - 32.0 pg [facility] MCHC 32.4 31.7 - 35.0 gm/dL [facility] Platelets 375(H) 145 - 357 x10(3)/[facility] LABORATORY RDWSD 46.6(H) 37.0 - 46.0 [facility] LABORATORY RDWCV 15.2(H) 11.5 - 14.1 % [facility] MPV 9.7 7.6 - 12.9 [facility] LAB[facility]ORY nRBC % Auto 0.0 % [facility] nRBC Abs Auto 0.000 0.000 - 0.000 x10(3)/[facility] LAB[facility] Blood specimen (specimen) 04/24/2020 4:58 AM EDT 04/24/2020 5:16 AM EDT Narrative Resulting Agency Comment Spec In Lab Hong Levi MD HEMATOLOGY ORDERABLE S [facility] [place] [address] * Magnesium (04/24/2020 4:58 AM EDT) Magnesium 0.87 0.69 - 1.07 mmol/L [facility] Blood specimen (specimen) 04/24/2020 4:58 AM EDT 04/24/2020 5:16 AM EDT Narrative Resulting Agency Comment Spec In Lab Dale Dash MD CHEMISTRY ORDERABLES [facility] [place] [address] * (ABNORMAL) Comprehensive metabolic panel (non-fasting) (04/24/2020 4:58 AM EDT) Pathologist [facility] Glucose Lvl 188 65 - 199 mg/dL [facility] Comment:Diabetes: >=200 mg/d L plus symptoms BUN 25(H) 8 - 18 mg/dL [facility] Creatinine 0.74 0.70 - 1.20 mg/dL [facility] Sodium 143 135 - 145 mmol/L [facility] Potassium 3.3(L) 3.5 - 5.0 mmol/L [facility] Comment: Please note: ??Patients with WBC >100,000 may have falsely elevated Potassium levels. ??For accurate Potassium quantification in these patients send serum separator tube (gold top) for subsequent determinations. ??Contact the Clinical Chemistry Laboratory if there are any questions. Chloride 108(H) 98 - 107 mmol/L [facility] CO2 22 22 - 31 mmol/L [facility] Anion Gap 13 5 - 15 mmol/L [facility] Calcium 8.7 8.5 - 10.5 mg/dL [facility] Total Protein 6.4 6.1 - 8.0 gm/dL [facility] Albumin 2.8(L) 3.2 - 5.2 gm/dL [facility] AST 14 0 - 30 unit/L [facility] ALT 16 0 - 30 unit/L [facility] Alk Phos 243(H) 35 - 105 unit/L [facility] Total Bilirubin 0.4 0.2 - 1.3 mg/dL [facility] Estimated GFR 77 >=60 mL/min/1. 73 m?? [facility] Comment: The eGFR was calculated using the CKD-EPI equation. As with all creatinine based estimates of kidney function, eGFR values calculated with the CKD-EPI equation are not accurate in patients with acute kidney failure, extremes of body mass or the acutely ill. http://1000memories/[facility]OBARTnkf eGFR 89 >=60 mL/min/1. 73 m?? [facility] Comment: The eGFR was calculated using the CKD-EPI equation. As with all creatinine based estimates of kidney function, eGFR values calculated with the CKD-EPI equation are not accurate in patients with acute kidney failure, extremes of body mass or the acutely ill. http://1000memories/[facility]OBARTnkf Blood specimen (specimen) 04/24/2020 4:58 AM EDT 04/24/2020 5:16 AM EDT Narrative Resulting Agency Comment Spec In Lab Dale Dash MD CHEMISTRY ORDERABLES Performing Organization Address [facility] Co de Phone Number [facility] [place] [address] * POCT Glucose (04/24/2020 4:06 AM EDT) POC Glucose 191 65 - 199 mg/dL [facility] Comment: Supplemental ranges: <140 mg/dL before meals <180 mg/dL all other times of the day Blood specimen (specimen) 04/24/2020 4:06 AM EDT 04/24/2020 4:06 AM EDT Abiodun Chun MD POINT OF CARE TEST O RDERABLES Performing Organization Address City/[facility]/ZIP Co de Phone Number [facility] [place] [address] * POCT Glucose (04/23/2020 11:44 PM EDT) POC Glucose 193 65 - 199 mg/dL [facility] Comment: Supplemental ranges: <140 mg/dL before meals <180 mg/dL all other times of the day Blood specimen (specimen) 04/23/2020 11:44 PM EDT 04/23/2020 11:44 PM EDT Abiodun Chun MD POINT OF CARE TEST O RDERABLES [facility] [place] [address] * POCT Glucose (04/23/2020 8:02 PM EDT) POC Glucose 177 65 - 199 mg/dL [facility] Comment: Supplemental ranges: <140 mg/dL before meals <180 mg/dL all other times of the day Blood specimen (specimen) 04/23/2020 8:02 PM EDT 04/23/2020 8:02 PM EDT Abiodun Chun MD POINT OF CARE TEST O RDERABLES Performing Organization Address City/[facility]/ZIP Co de Phone Number [facility] [place] [address] * (ABNORMAL) POCT Glucose (04/23/2020 4:15 PM EDT) POC Glucose 204(H) 65 - 199 mg/dL [facility] Comment: Supplemental ranges: <140 mg/dL before meals <180 mg/dL all other times of the day Blood specimen (specimen) 04/23/2020 4:15 PM EDT 04/23/2020 4:15 PM EDT Abiodun Chun MD POINT OF CARE TEST O RDERABLES [facility] [place] [address] * Potassium (04/23/2020 1:40 PM EDT) Potassium 3.7 3.5 - 5.0 mmol/L [facility] Comment: Please note: ??Patients with WBC >100,000 may have falsely elevated Potassium levels. ??For accurate Potassium quantification in these patients send serum separator tube (gold top) for subsequent determinations. ??Contact the Clinical Chemistry Laboratory if there are any questions. Blood specimen (specimen) 04/23/2020 1:40 PM EDT 04/23/2020 1:46 PM EDT Narrative Resulting Agency Comment Spec In Lab Abiodun Chun MD CHEMISTRY ORDERABLES Performing Organization Address [facility] Co de Phone Number [facility] [place] [address] * (ABNORMAL) POCT Glucose (04/23/2020 11:35 AM EDT) POC Glucose 202(H) 65 - 199 mg/dL [facility] Comment: Supplemental ranges: <140 mg/dL before meals <180 mg/dL all other times of the day Blood specimen (specimen) 04/23/2020 11:35 AM EDT 04/23/2020 11:35 AM EDT Abiodun Chun MD POINT OF CARE TEST O ISAIAH Performing Organization Address [facility] Co de Phone Number [facility] [place] [address] * POCT Glucose (04/23/2020 7:27 AM EDT) POC Glucose 115 65 - 199 mg/dL [facility] Comment: Supplemental ranges: <140 mg/dL before meals <180 mg/dL all other times of the day Blood specimen (specimen) 04/23/2020 7:27 AM EDT 04/23/2020 7:27 AM EDT Hong Rosenthal MD POINT OF CARE TEST O RDERABLES Performing Organization Address [facility]/ZIP Co de Phone Number [facility] [place] [address] * POCT Glucose (04/23/2020 4:03 AM EDT) [facility] POC Glucose 137 65 - 199 mg/dL [facility] Comment: Supplemental ranges: <140 mg/dL before meals <180 mg/dL all other times of the day Blood specimen (specimen) 04/23/2020 4:03 AM EDT 04/23/2020 4:03 AM EDT Hong Rosenthal MD POINT OF CARE TEST O RDERABLES Performing Organization Address [facility] Co de Phone Number [facility] [place] [address] * Scan, Peripheral Blood (04/23/2020 2:25 AM EDT) [facility] Plat Estimate Increased [facility] RBC Morphology Abnormal [facility] Microcytes 1-5 /HPF [facility] Hypochromia Slight [facility] Blood specimen (specimen) 04/23/2020 2:25 AM EDT 04/23/2020 2:57 AM EDT Narrative Resulting Agency Comment Spec In Lab Tiesha Morgan MD HEMATOLOGY ORDERABLE S Performing Organization Address [facility] Co de Phone Number [facility] [place] [address] * (ABNORMAL) Differential, Automated (04/23/2020 2:25 AM EDT) [facility] Neutrophils % 72.2 % [facility] Neutr Abs (ANC) 7.20(H) 1.70 - 6.10 x10(3)/mc L [facility] Lymphocytes % 17.0 % [facility] Lymphocytes Abs 1.7 0.9 - 3.2 x10(3)/mc L [facility] Monocytes % 7.5 % [facility] Monocyte Abs 0.8 0.3 - 0.9 x10(3)/[facility] LABORATORY Eosinophils % 1.9 % [facility] Eosinophils Abs 0.2 0.0 - 0.4 x10(3)/[facility] LABORATORY Basophils % 0.5 % [facility] Basophils Abs 0.0 0.0 - 0.1 x10(3)/[facility] LABORATORY Immature Gran % 0.90 % [facility] Comment: Immature granulocytes(IG's)percentage and absolute count will include metamyelocytes, myelocytes, and promyelocytes. Blood smears from CBCs yielding IG's will be scanned manually for concordance. If this scan disagrees with the automated IG or if promyelocytes are noted, a manual differential will be performed. Nanci Gran Abs 0.09(H) 0.00 - 0.04 x10(3)/[facility] LABORATORY Blood specimen (specimen) 04/23/2020 2:25 AM EDT 04/23/2020 2:57 AM EDT Narrative Resulting Agency Comment Spec In Lab Tiesha Morgan MD HEMATOLOGY ORDERABLE S [facility] [place] [address] * (ABNORMAL) Hemogram (04/23/2020 2:25 AM EDT) WBC 10.0(H) 4.0 - 9.5 x10(3)/[facility] LABORATORY RBC 3.26(L) 4.00 - 5.21 x10(6)/[facility] LAB[facility]ATORY Hemoglobin 8.9(L) 11.7 - 15.5 gm/dL [facility] Hematocrit 27.4(L) 35.7 - 45.8 % [facility] MCV 84.0 82.6 - 94.4 fL [facility] MCH 27.3 27.1 - 32.0 pg [facility] MCHC 32.5 31.7 - 35.0 gm/dL [facility] Platelets 360(H) 145 - 357 x10(3)/[facility] LABORATORY RDWSD 47.2(H) 37.0 - 46.0 [facility] LABORATORY RDWCV 15.4(H) 11.5 - 14.1 % [facility] MPV 10.1 7.6 - 12.9 [facility] LAB[facility]ATORY nRBC % Auto 0.0 % [facility] nRBC Abs Auto 0.000 0.000 - 0.000 x10(3)/[facility] LAB[facility]ORY Blood specimen (specimen) 04/23/2020 2:25 AM EDT 04/23/2020 2:57 AM EDT Narrative Resulting Agency Comment Spec In Lab Tiesha Morgan MD HEMATOLOGY ORDERABLE S Performing Organization Address City/[facility]/ZIP Co de Phone Number [facility] [place] [address] * Magnesium (04/23/2020 2:25 AM EDT) Magnesium 0.96 0.69 - 1.07 mmol/L [facility] Blood specimen (specimen) 04/23/2020 2:25 AM EDT 04/23/2020 2:57 AM EDT Narrative Resulting Agency Comment Spec In Lab Dale Dash MD CHEMISTRY ORDERABLES [facility] [place] [address] * (ABNORMAL) Prothrombin Time (04/23/2020 2:25 AM EDT) PT 14.6(H) 9.4 - 12.5 sec [facility] INR 1.3 [facility] Comment: An [...] depending on clinical circumstances. Blood specimen (specimen) 04/23/2020 2:25 AM EDT 04/23/2020 2:57 AM EDT Narrative Resulting Agency Comment Spec In Lab Magdalene Lopez MD HEMATOLOGY ORDERABLE S [facility] [place] [address] * (ABNORMAL) Comprehensive metabolic panel (non-fasting) (04/23/2020 2:25 AM EDT) Glucose Lvl 134 65 - 199 mg/dL [facility] Comment:Diabetes: >=200 mg/d L plus symptoms BUN 32(H) 8 - 18 mg/dL [facility] Creatinine 0.96 0.70 - 1.20 mg/dL [facility] Sodium 142 135 - 145 mmol/L [facility] Potassium 3.3(L) 3.5 - 5.0 mmol/L [facility] Comment: Please note: ??Patients with WBC >100,000 may have falsely elevated Potassium levels. ??For accurate Potassium quantification in these patients send serum separator tube (gold top) for subsequent determinations. ??Contact the Clinical Chemistry Laboratory if there are any questions. Chloride 106 98 - 107 mmol/L [facility] CO2 24 22 - 31 mmol/L [facility] Anion Gap 12 5 - 15 mmol/L [facility] Calcium 8.4(L) 8.5 - 10.5 mg/dL [facility] Total Protein 6.1 6.1 - 8.0 gm/dL [facility] Albumin 2.7(L) 3.2 - 5.2 gm/dL [facility] AST 17 0 - 30 unit/L [facility] ALT 19 0 - 30 unit/L [facility] Alk Phos 227(H) 35 - 105 unit/L [facility] Total Bilirubin 0.5 0.2 - 1.3 mg/dL [facility] Estimated GFR 56(L) >=60 mL/min/1. 73 m?? [facility] Comment: The eGFR was calculated using the CKD-EPI equation. As with all creatinine based estimates of kidney function, eGFR values calculated with the CKD-EPI equation are not accurate in patients with acute kidney failure, extremes of body mass or the acutely ill. http://1000memories/[facility] eGFR 65 >=60 mL/min/1. 73 m?? [facility] Comment: The eGFR was calculated using the CKD-EPI equation. As with all creatinine based estimates of kidney function, eGFR values calculated with the CKD-EPI equation are not accurate in patients with acute kidney failure, extremes of body mass or the acutely ill. http://1000memories/[facility] Blood specimen (specimen) 04/23/2020 2:25 AM EDT 04/23/2020 2:57 AM EDT Narrative Resulting Agency Comment Spec In Lab Dale Dash MD CHEMISTRY ORDERABLES Performing Organization Address [facility]/ZIP Co de Phone Number [facility] [place] [address] * POCT Glucose (04/22/2020 11:23 PM EDT) POC Glucose 143 65 - 199 mg/dL [facility] Comment: Supplemental ranges: <140 mg/dL before meals <180 mg/dL all other times of the day Blood specimen (specimen) 04/22/2020 11:23 PM EDT 04/22/2020 11:23 PM EDT Hong Rosenthal MD POINT OF CARE TEST O RDERABLES Performing Organization Address City/[facility]/ZIP Co de Phone Number [facility] [place] [address] * POCT Glucose (04/22/2020 8:00 PM EDT) POC Glucose 142 65 - 199 mg/dL [facility] Comment: Supplemental ranges: <140 mg/dL before meals <180 mg/dL all other times of the day Blood specimen (specimen) 04/22/2020 8:00 PM EDT 04/22/2020 8:00 PM EDT Hong Rosentahl MD POINT OF CARE TEST O RDROBIN Performing Organization Address [facility] de Phone Number [facility] [place] [address] * (ABNORMAL) Potassium (04/22/2020 5:45 PM EDT) [facility] Potassium 3.4(L) 3.5 - 5.0 mmol/L [facility] Comment: Please note: ??Patients with WBC >100,000 may have falsely elevated Potassium levels. ??For accurate Potassium quantification in these patients send serum separator tube (gold top) for subsequent determinations. ??Contact the Clinical Chemistry Laboratory if there are any questions. Blood specimen (specimen) 04/22/2020 5:45 PM EDT 04/22/2020 5:57 PM EDT Narrative Resulting Agency Comment Spec In Lab Hong Rosenthal MD CHEMISTRY ORDERABLES Performing Organization Address [facility] Phone Number [facility] [place] [address] * POCT Glucose (04/22/2020 4:42 PM EDT) Pathologist [facility] POC Glucose 156 65 - 199 mg/dL [facility] Comment: Supplemental ranges: <140 mg/dL before meals <180 mg/dL all other times of the day Blood specimen (specimen) 04/22/2020 4:42 PM EDT 04/22/2020 4:42 PM EDT Hong Rosenthal MD POINT OF CARE TEST O ISAIAH Performing Organization Address [facility] Co de Phone Number [facility] [place] [address] * IR Cholecystostomy Tube Placement (04/22/2020 4:19 PM EDT) Anatomical Region Laterality Modality X-Ray Angiograph y Narrative 04/22/2020 5:00 PM EDT INTERVENTIONAL RADIOLOGY PROCEDURE NOTE Procedure: Cholecystostomy catheter placement Indication for Procedure: Cholecystitis. Patient recently status post CAD 2 vessel stenting on Asprin and Plavix. IR consulted for cholecystostomy tube placement. Consent: After discussing the risks (including infection, hemorrhage, damage to surrounding structures, respiratory depression) and benefits, the patient consented to the procedure. Method of Sedation: ??Due to the painful nature of the procedure, patient received split doses of intravenous fentanyl from the ICU nurse while pulse, pressure, and oxygen saturation were continuously monitored. 1% lidocaine was used for local analgesia. Technique: Prior to beginning the procedure, a standard time out Moment of Truth was performed to confirm all sanchez aspects (including the patient's identity, informed consent, medical record number, allergies, planned procedure and laterality if appropriate) all of which were correct. The patient was positioned supine on the procedure table. Ultrasound of the right upper quadrant including gallbladder was performed. The right upper quadrant was prepped and draped. Maximal sterile barrier technique was used throughout the procedure. Lidocaine SQ was administered for local anesthesia. Under US guidance, a 18 ga needle was advanced into the gallbladder. Purulent bile was aspirated and sent for gram stain / culture. The remainder of the procedure was performed under fluoroscopic guidance. Over an amplatz guidewire the tract was dilated and a 10-Fr pigtail catheter was advanced. Catheter secured to the skin with 2-0 proline and left to gravity drainage. Medications: Lidocaine 1% <10 mL SQ. All other medications per ICU nursing documentation. Antibiotics: Patient is on Zosyn every 8 hours. Fluoroscopy Time: ??0.3 min EBL: <5 cc Complications: ??No immediate Findings/Impression: ??Cholecystostomy catheter placement (10-Fr catheter). 90 cc purulent bile aspirated; sample sent for gram stain and culture. Plan: 1) To Angio recovery room, may transfer to ICU when meets criteria. 2) 6 week cholecystostomy tube check (ordered placed). Operators: Resident: Veto Baron PGY-5 Attending: Dr. Collins I, Dr. Collins, was present throughout the procedure. I was present during the intraservice time as documented by the IR Nurse. ?? Hong Rosenthal MD IMG IR ORDERABLES * Anaerobic Culture (04/22/2020 3:50 PM EDT) Anaerobic Culture No anaerobic organisms isolated [facility] Bile specimen (specimen) 04/22/2020 3:50 PM EDT 04/22/2020 4:36 PM EDT Comment:CHOLECYSTITIS IN THE SETTING OF RECENT ACS S/P STENT PLACEMENT Narrative Resulting Agency Comment Spec In Lab Hong Rosenthal MD MICROBIOLOGY - GENER AL ORDERABLES [facility] [place] [id number] * (ABNORMAL) Body Fluid Culture, Aerobic (04/22/2020 3:50 PM EDT) Body Fluid Culture Many Raoultella ornithinolytica (Klebsiella ornithinolytica)(A ) [facility] Gram Stain Few Neutrophils seen Rare Gram Negative Rods seen (A) [facility] Organism Raoultella ornithinolytica (Klebsiella ornithinolytica)(A ) [facility] Organism Gram Negative Rods(A) [facility] Bile specimen (specimen) 04/22/2020 3:50 PM EDT 04/22/2020 4:36 PM EDT Comment:CHOLECYSTITIS IN THE SETTING OF RECENT ACS S/P STENT PLACEMENT Narrative Resulting Agency Comment Spec In Lab Organism Antibiotic Method Susceptibility Raoultella ornithinolytica Amikacin VITEK 2 METHOD Sensitive Raoultella ornithinolytica Ampicillin + Sulbactam KIKI K 2 METHOD Sensitive Raoultella ornithinolytica Aztreonam VITEK 2 METHOD Sensitive Raoultella ornithinolytica Ceftazidime VITEK 2 METHOD <=1: Sensitive Raoultella ornithinolytica Ceftriaxone VITEK 2 METHOD Sensitive Raoultella ornithinolytica Ertapenem VITEK 2 METHOD Sensitive Raoultella ornithinolytica Gentamicin VITEK 2 METHOD Sensitive Raoultella ornithinolytica Levofloxacin VITEK 2 METHOD Sensitive Comment: Levofloxacin and Ciprofloxacin may not adequately treat infections in critically ill patients even when isolates test susceptible in the laboratory. Contact Infectious Disease before using in critically ill patients. Raoultella ornithinolytica Meropenem VITEK 2 METHOD <=0.25: Sensitive Raoultella ornithinolytica Piperacillin/Tazobactam VIT EK 2 METHOD <=4: Sensitive Raoultella ornithinolytica Tetracycline VITEK 2 METHOD Sensitive Raoultella ornithinolytica Tigecycline VITEK 2 METHOD Sensitive Raoultella ornithinolytica Tobramycin VITEK 2 METHOD Sensitive Raoultella ornithinolytica Trimethoprim/Sulfa VITEK 2 METHOD Sensitive Hong Rosenthal MD [facility]OLOGY - [facility] AL ORDERABLES [facility] [place] [address] * (ABNORMAL) Differential, Automated (04/22/2020 2:05 PM EDT) Neutrophils % 77.2 % [facility] Neutr Abs (ANC) 9.74(H) 1.70 - 6.10 x10(3)/mc L [facility] Lymphocytes % 11.3 % [facility] Lymphocytes Abs 1.4 0.9 - 3.2 x10(3)/mc L [facility] Monocytes % 8.2 % [facility] Monocyte Abs 1.0(H) 0.3 - 0.9 x10(3)/mc L [facility] Eosinophils % 1.9 % [facility] Eosinophils Abs 0.2 0.0 - 0.4 x10(3)/mc L [facility] Basophils % 0.6 % [facility] Basophils Abs 0.1 0.0 - 0.1 x10(3)/mc L [facility] Immature Gran % 0.80 % [facility] Comment: Immature granulocytes(IG's)percentage and absolute count will include metamyelocytes, myelocytes, and promyelocytes. Blood smears from CBCs yielding IG's will be scanned manually for concordance. If this scan disagrees with the automated IG or if promyelocytes are noted, a manual differential will be performed. Nanci Gran Abs 0.10(H) 0.00 - 0.04 x10(3)/mc L [facility] Blood specimen (specimen) 04/22/2020 2:05 PM EDT 04/22/2020 2:17 PM EDT Narrative Resulting Agency Comment Spec In Lab Hong Levi MD HEMATOLOGY ORDERABLE S [facility] [place] [address] * (ABNORMAL) Hemogram (04/22/2020 2:05 PM EDT) WBC 12.6(H) 4.0 - 9.5 x10(3)/[facility] RBC 3.51(L) 4.00 - 5.21 x10(6)/[facility] Hemoglobin 9.5(L) 11.7 - 15.5 gm/dL [facility] Hematocrit 29.3(L) 35.7 - 45.8 % [facility] MCV 83.5 82.6 - 94.4 [facility] MCH 27.1 27.1 - 32.0 pg [facility] MCHC 32.4 31.7 - 35.0 gm/dL [facility] Platelets 340 145 - 357 x10(3)/[facility] RDWSD 47.2(H) 37.0 - 46.0 [facility] RDWCV 15.4(H) 11.5 - 14.1 % [facility] MPV 10.4 7.6 - 12.9 [facility] nRBC % Auto 0.0 % [facility] nRBC Abs Auto 0.000 0.000 - 0.000 x10(3)/[facility] Blood specimen (specimen) 04/22/2020 2:05 PM EDT 04/22/2020 2:17 PM EDT Narrative Resulting Agency Comment Spec In Lab Hong Levi MD HEMATOLOGY ORDERABLE S Performing Organization Address [facility] Co de Phone Number [facility] [place] [address] * POCT Glucose (04/22/2020 11:29 AM EDT) [facility] POC Glucose 171 65 - 199 mg/dL [facility] Comment: Supplemental ranges: <140 mg/dL before meals <180 mg/dL all other times of the day Blood specimen (specimen) 04/22/2020 11:29 AM EDT 04/22/2020 11:29 AM EDT Hong Rosenthal MD POINT OF CARE TEST O RDERABLES Performing Organization Address [facility] Co de Phone Number [facility] [place] [address] * (ABNORMAL) BLOOD GAS 2 ARTERIAL (04/22/2020 9:20 AM EDT) Pathologist [facility] pH Art 7.41 7.35 - 7.45 [facility] pCO2 Art 37 35 - 45 mmHg [facility] pO2 Art 103 85 - 104 mmHg [facility] HCO3 Art 23.4 20.0 - 26.0 mmol/L [facility] BE Art -1.2 -3.0 - 3.0 mmol/L [facility] Hgb Blood Gas 9.3(L) 11.7 - 15.5 gm/dL [facility] O2HB Art 96.3 94.0 - 97.0 % [facility] COHB Art 0.3 % [facility] Comment: Nonsmokers: 0.5-1.5% COHB Smokers: Variable, but usually less than 10% Toxic: 20-30% COHB Lethal: Greater than 60% COHB METHB Art 0.6 <=1.5 % [facility] Na Whole Blood 137 135 - 145 mmol/L [facility] K Whole Blood 3.0(Critic al) 3.5 - 5.0 mmol/L [facility] Comment: Noted by fretted instrument repairer. Please note: Patients with WBC >100,000 may have falsely elevated Potassium levels. Contact the Clinical Chemistry Laboratory if there are any questions. ICa Whole Blood 1.11(L) 1.15 - 1.33 mmol/L [facility] Comment: Note: ??Total bilirubin higher than 20 mg/dL may lead to falsely low ionized calcium. CL Whole Blood 109(H) 98 - 107 mmol/L [facility] Gluc Whole Bld 147 65 - 199 mg/dL [facility] Comment:Diabetes: >=200 mg/d L plus symptoms. Lactate WB 1.1 0.5 - 2.2 mmol/L [facility] Flow Art 6.0 LPM [facility] Blood specimen (specimen) 04/22/2020 9:20 AM EDT 04/22/2020 9:20 AM EDT Hong Rosenthal MD CHEMISTRY ORDERABLES Performing Organization Address City/[facility]/ZIP Co de Phone Number [facility] [place] [address] * POCT Glucose (04/22/2020 7:35 AM EDT) POC Glucose 153 65 - 199 mg/dL [facility] Comment: Supplemental ranges: <140 mg/dL before meals <180 mg/dL all other times of the day Blood specimen (specimen) 04/22/2020 7:35 AM EDT 04/22/2020 7:35 AM EDT Hong Rosenthal MD POINT OF CARE TEST O RDERABLES Performing Organization Address City/[facility]/ZIP Co de Phone Number [facility] [place] [address] * XR Chest One View (04/22/2020 6:15 AM EDT) Anatomical Region Laterality Modality Chest N/A Digital Radiogra phy Impressions 04/22/2020 8:08 AM EDT Persistent pulmonary vascular congestion. Improved interstitial edema. Persistent right-sided pleural effusion, predominantly subpulmonic. Thank you for letting us participate in the care of this patient. For questions regarding this report, please contact the number below. ? Electronically signed by: Mayte Pollack [facility] ([phone]), at 04/22/2020 8:08 AM Narrative 04/22/2020 8:08 AM EDT EXAMINATION: XR CHEST ONE VIEW CLINICAL HISTORY: Pulmonary vascular congestion and new hypoxic respiratory failure, assess progression TECHNIQUE: Portable AP chest radiograph on ??04/22/2020 at 0610 hours. COMPARISON: 04/21/2020 at 0444 hours. FINDINGS: Findings consistent with right-sided pleural effusion, and likely largely subpulmonic, with atelectasis of the right lung base, rather than elevated hemidiaphragm. Persistent pulmonary vascular congestion, but slightly improved interstitial edema. Unchanged cardiac silhouette. Procedure Note Mayte Pollack MD - 04/22/2020 EXAMINATION: XR CHEST ONE VIEW CLINICAL HISTORY: Pulmonary vascular congestion and new hypoxicrespiratory failure, assess progression TECHNIQUE: Portable AP chest radiograph on 04/22/2020 at 0610 hours. COMPARISON: 04/21/2020 at 0444 hours. FINDINGS: Findings consistent with right-sided pleural effusion, andlikely largely subpulmonic, with atelectasis of the right lung base, ratherthan elevated hemidiaphragm. Persistent pulmonary vascular congestion, butslightly improved interstitial edema. Unchanged cardiac silhouette. IMPRESSION Persistent pulmonary vascular congestion. Improved interstitial edema. Persistent right-sided pleural effusion, predominantlysubpulmonic. Thank you for letting us participate in the care of this patient. Forquestions regarding this report, please contact the number below. Hong Rosenthal MD IMG DX ORDERABLES * (ABNORMAL) Differential, Automated (04/22/2020 3:50 AM EDT) Neutrophils % 78.4 % [facility] Neutr Abs (ANC) 10.58(H) 1.70 - 6.10 x10(3)/[facility] Lymphocytes % 11.9 % [facility] Lymphocytes Abs 1.6 0.9 - 3.2 x10(3)/[facility] Monocytes % 8.2 % [facility] Monocyte Abs 1.1(H) 0.3 - 0.9 x10(3)/[facility] Eosinophils % 0.5 % [facility] Eosinophils Abs 0.1 0.0 - 0.4 x10(3)/[facility] Basophils % 0.2 % [facility] Basophils Abs 0.0 0.0 - 0.1 x10(3)/[facility] Immature Gran % 0.80 % [facility] Comment: Immature granulocytes(IG's)percentage and absolute count will include metamyelocytes, myelocytes, and promyelocytes. Blood smears from CBCs yielding IG's will be scanned manually for concordance. If this scan disagrees with the automated IG or if promyelocytes are noted, a manual differential will be performed. Nanci Gran Abs 0.11(H) 0.00 - 0.04 x10(3)/[facility] Blood specimen (specimen) 04/22/2020 3:50 AM EDT 04/22/2020 3:57 AM EDT Narrative Resulting Agency Comment Spec In Lab Tiesha Morgan MD HEMATOLOGY ORDERABLE S [facility] [place] [address] * (ABNORMAL) Hemogram (04/22/2020 3:50 AM EDT) WBC 13.5(H) 4.0 - 9.5 x10(3)/[facility] RBC 3.18(L) 4.00 - 5.21 x10(6)/[facility] Hemoglobin 8.6(L) 11.7 - 15.5 gm/dL [facility] Hematocrit 26.8(L) 35.7 - 45.8 % [facility] MCV 84.3 82.6 - 94.4 fL [facility] MCH 27.0(L) 27.1 - 32.0 pg [facility] MCHC 32.1 31.7 - 35.0 gm/dL [facility] Platelets 313 145 - 357 x10(3)/[facility] RDWSD 47.2(H) 37.0 - 46.0 [facility] RDWCV 15.2(H) 11.5 - 14.1 % [facility] MPV 10.5 7.6 - 12.9 [facility] nRBC % Auto 0.0 % [facility] nRBC Abs Auto 0.000 0.000 - 0.000 x10(3)/[facility] Blood specimen (specimen) 04/22/2020 3:50 AM EDT 04/22/2020 3:57 AM EDT Narrative Resulting Agency Comment Spec In Lab Tiesha Morgan MD HEMATOLOGY ORDERABLE S [facility] [place] [address] * (ABNORMAL) Magnesium (04/22/2020 3:50 AM EDT) Magnesium 1.46(H) 0.69 - 1.07 mmol/L [facility] Blood specimen (specimen) 04/22/2020 3:50 AM EDT 04/22/2020 3:57 AM EDT Narrative Resulting Agency Comment Spec In Lab Dale Dash MD CHEMISTRY ORDERABLES Performing Organization Address [facility] de Phone Number [facility] [place] [address] * (ABNORMAL) Prothrombin Time (04/22/2020 3:50 AM EDT) PT 13.9(H) 9.4 - 12.5 sec [facility] INR 1.2 [facility] [...] depending on clinical circumstances. Blood specimen (specimen) 04/22/2020 3:50 AM EDT 04/22/2020 3:57 AM EDT Narrative Resulting Agency Comment Spec In Lab Magdalene Lopez MD HEMATOLOGY ORDERABLE S Performing Organization Address City/[facility] Co de Phone Number [facility] [place] [address] * TSH [place] (04/22/2020 3:50 AM EDT) TSH 1.22 0.27 - 4.20 mcIU/mL [facility] Blood specimen (specimen) 04/22/2020 3:50 AM EDT 04/22/2020 3:57 AM EDT Narrative Resulting Agency Comment Spec In Lab Hong Rosenthal MD CHEMISTRY ORDERABLES [facility] [place] [address] * Lipid Panel (Reflex Direct LDL) (04/22/2020 3:50 AM EDT) Chol, Total 104 mg/dL [facility] Comment: Lower Risk: <200 mg/dL Average Risk: 200-239 mg/dL Higher Risk: >xc=737 mg/dL Triglycerides 237 mg/dL [facility] Comment: Average Risk/Lower Risk: <150 mg/dL Borderline High Risk: 150-199 mg/dL High Risk: 200-499 mg/dL Very High Risk: >zc=953 mg/dL HDL 17 mg/dL [facility] Comment: Males: ?? Higher Risk: <40 mg/dL Females: ?? HIgher Risk: <50 mg/dL LDL Cholesterol 40 mg/dL [facility] Comment: Lowest Risk: <100 mg/dL Lower Risk: 100-129 mg/dL Borderline High Risk: 130-159 mg/dL High Risk: 160-189 mg/dL Very High Risk: >xj=533 mg/dL Chol/HDL Ratio 6.1 ratio [facility] Lipid Interpretation See Note [facility] Comment: Lipid management should be guided by a patient? s ASCVD risk, goals and preferences. ACC/AHA Guidelines recommend high intensity statin if clinical ASCVD or LDL greater than or equal to 190 mg/dL. [email or web address]/[email or web address]-[email or web address] Adults aged 40-75 with LDL 70-189 mg/dL should have their 10 year ASCVD risk estimated with the ACC/AHA ASCVD risk timber estimator http://tools.acc.org/JPEJH-Xhin-Oagstdcei/ Statin should be discussed if risk greater than or equal to 7.5% in non-diabetics. With diabetes, moderate intensity statin is recommended if risk less than 7.5%, high intensity if risk greater than or equal to 7.5%. Annual lipid monitoring on statins is not necessary. Evaluate secondary causes of Triglycerides greater than 500 mg/dL or LDL greater than 190 mg/dL: See table 6 of ACC/AHA Guideline. Lifestyle modification is a critical component of ASCVD risk reduction. Blood specimen (specimen) 04/22/2020 3:50 AM EDT 04/22/2020 3:57 AM EDT Narrative Resulting Agency Comment Spec In Lab Hogn Rosenthal MD CHEMISTRY ORDERABLES [facility] [place] [address] * (ABNORMAL) Hemoglobin A1c (04/22/2020 3:50 AM EDT) Hemoglobin A1C 8.5(H) 4.3 - 5.6 % [facility] Comment: Reference Range: 4.3 - [...] Mellitus, Diabetes Care 2013; 36: Suppl. 1, S67-07 Est Avg Gluc See note mg/dL [facility] Comment: Estimated Average Glucose not [...] into estimated average glucose values. ??Diabetes Care 2008:31(8):7466-9445. Blood specimen (specimen) 04/22/2020 3:50 AM EDT 04/22/2020 3:57 AM EDT Narrative Resulting Agency Comment Spec In Lab Hong Rosenthal MD CHEMISTRY ORDERABLES [facility] [place] [address] * (ABNORMAL) Comprehensive metabolic panel (non-fasting) (04/22/2020 3:50 AM EDT) Glucose Lvl 157 65 - 199 mg/dL [facility] Comment:Diabetes: >=200 mg/d L plus symptoms BUN 34(H) 8 - 18 mg/dL [facility] Creatinine 1.10 0.70 - 1.20 mg/dL [facility] Sodium 139 135 - 145 mmol/L [facility] Potassium 3.2(L) 3.5 - 5.0 mmol/L [facility] Comment: Please note: ??Patients with WBC >100,000 may have falsely elevated Potassium levels. ??For accurate Potassium quantification in these patients send serum separator tube (gold top) for subsequent determinations. ??Contact the Clinical Chemistry Laboratory if there are any questions. Chloride 103 98 - 107 mmol/L [facility] CO2 24 22 - 31 mmol/L [facility] Anion Gap 12 5 - 15 mmol/L [facility] Calcium 8.4(L) 8.5 - 10.5 mg/dL [facility] Total Protein 6.1 6.1 - 8.0 gm/dL [facility] Albumin 2.5(L) 3.2 - 5.2 gm/dL [facility] AST 19 0 - 30 unit/L [facility] ALT 20 0 - 30 unit/L [facility] Alk Phos 245(H) 35 - 105 unit/L [facility] Total Bilirubin 0.6 0.2 - 1.3 mg/dL [facility] Estimated GFR 48(L) >=60 mL/min/1. 73 m?? [facility] Comment: The eGFR was calculated using the CKD-EPI equation. As with all creatinine based estimates of kidney function, eGFR values calculated with the CKD-EPI equation are not accurate in patients with acute kidney failure, extremes of body mass or the acutely ill. [email or web address] eGFR 55(L) >=60 mL/min/1. 73 m?? [facility] Comment: The eGFR was calculated using the CKD-EPI equation. As with all creatinine based estimates of kidney function, eGFR values calculated with the CKD-EPI equation are not accurate in patients with acute kidney failure, extremes of body mass or the acutely ill. [email or web address] Blood specimen (specimen) 04/22/2020 3:50 AM EDT 04/22/2020 3:57 AM EDT Narrative Resulting Agency Comment Spec In Lab Dlae Dash MD CHEMISTRY ORDERABLES Performing Organization Address City/[facility]/ZIP Co de Phone Number [facility] [place] [address] * POCT Glucose (04/21/2020 11:36 PM EDT) POC Glucose 195 65 - 199 mg/dL [facility] Comment: Supplemental ranges: <140 mg/dL before meals <180 mg/dL all other times of the day Blood specimen (specimen) 04/21/2020 11:36 PM EDT 04/21/2020 11:36 PM EDT Hong Rosenthal MD POINT OF CARE TEST O RDERABLES [facility] [place] [address] * (ABNORMAL) Basic Metabolic Panel (non-fasting) (04/21/2020 10:00 PM EDT) Glucose Lvl 231(H) 65 - 199 mg/dL [facility] Comment:Diabetes: >=200 mg/d L plus symptoms BUN 31(H) 8 - 18 mg/dL [facility] Creatinine 1.00 0.70 - 1.20 mg/dL [facility] Sodium 138 135 - 145 mmol/L [facility] Potassium 3.6 3.5 - 5.0 mmol/L [facility] Comment: Please note: ??Patients with WBC >100,000 may have falsely elevated Potassium levels. ??For accurate Potassium quantification in these patients send serum separator tube (gold top) for subsequent determinations. ??Contact the Clinical Chemistry Laboratory if there are any questions. Chloride 102 98 - 107 mmol/L [facility] CO2 24 22 - 31 mmol/L [facility] Anion Gap 12 5 - 15 mmol/L [facility] Calcium 8.5 8.5 - 10.5 mg/dL [facility] Estimated GFR 54(L) >=60 mL/min/1. 73 m?? [facility] Comment: The eGFR was calculated using the CKD-EPI equation. As with all creatinine based estimates of kidney function, eGFR values calculated with the CKD-EPI equation are not accurate in patients with acute kidney failure, extremes of body mass or the acutely ill. [email or web address] eGFR 62 >=60 mL/min/1. 73 m?? [facility] Comment: The eGFR was calculated using the CKD-EPI equation. As with all creatinine based estimates of kidney function, eGFR values calculated with the CKD-EPI equation are not accurate in patients with acute kidney failure, extremes of body mass or the acutely ill. [email or web address] Blood specimen (specimen) 04/21/2020 10:00 PM EDT 04/21/2020 10:04 PM EDT Narrative Resulting Agency Comment Spec In Lab Hong Rosenthal MD CHEMISTRY ORDERABLES Performing Organization Address [facility] Co de Phone Number [facility] [place] [address] * (ABNORMAL) POCT Glucose (04/21/2020 7:49 PM EDT) Pathologist [facility] POC Glucose 201(H) 65 - 199 mg/dL [facility] Comment: Supplemental ranges: <140 mg/dL before meals <180 mg/dL all other times of the day Blood specimen (specimen) 04/21/2020 7:49 PM EDT 04/21/2020 7:49 PM EDT Hong Rosenthal MD POINT OF CARE TEST O RDERABLES Performing Organization Address [facility] Co de Phone Number [facility] [place] [address] * (ABNORMAL) Point of Care Blood Gas Historical (04/21/2020 4:44 PM EDT) POC pH 7.43 7.35 - 7.45 [facility] POC PCO2 31(L) 35 - 45 mmHg [facility] POC PO2 58(L) 85 - 104 mmHg [facility] POC Base Excess -4.0(L) -3.0 - 3.0 mmol/L [facility] POC HCO3 20.3 20.0 - 26.0 mmol/L [facility] POC Sodium 139 135 - 145 mmol/L [facility] POC Potassium 3.4(L) 3.5 - 5.0 mmol/L [facility] POC Ionized Ca 1.16 1.15 - 1.33 mmol/L [facility] POC Hematocrit 29.0(L) 34.0 - 45.0 % [facility] POC Calc Hgb 9.9(L) 11.2 - 15.7 gm/dL [facility] Comment:The calculation of h emoglobin from hematocrit assumes a normal MCHC. POC Bgas Loc CC LAB [facility] Blood specimen (specimen) 04/21/2020 4:44 PM EDT 04/22/2020 12:00 PM EDT Abiodun Chun MD CHEMISTRY ORDERABLES Performing Organization Address [facility]/State/[facility] Co de Phone Number [facility] [place] [address] * CARDIAC CATHETERIZATION (04/21/2020 4:08 PM EDT) Anatomical Region Laterality Modality Other Narrative 04/21/2020 6:49 PM EDT ?[facility] ? Cardiac Catheterization/Intervention Report ? Patient Name: HEIDY, SHANNAN A. ? Procedure Date: 04/21/2020 ? A #: [id number] ? Primary Physician: Barbie, Esau J ? Case #: [id number] ? File Name: [id number] ? Catheterization Order Number: [id number] ? [facility] ? Final Report [place], [place] ? Patient Name: ? SHANNAN A. HEIDY ? ID#: ?[id number] ? : ?1940 ? Procedure Date: ? April 21, 2020 ?Case #: ? [id number] ? Room: ? 2 ? Case Physician: ? Esau Rahman M.D. ?Start: ?15:54 ?Fellow: ? Sandy Camargo D.O. ?Admission: ??04/19/2020 ? Referring Physician: ??Reshma Baig M.D. ? Procedures: ?* Coronary Angiography ?* Coronary Ultrasound ?* Right Heart Catheterization ?* Oximetry ?* Coronary Stent Insertion ?* Vascular Closure Device Deployment ?* Access Site Angiography ?* Arterial Blood Gases ? History ?SHANNAN CHAUDHARY is a 79 year old woman. She has hypertension. The ?patient's smoking status is Never. She has hypercholesterolemia managed ?with lipid therapy. The patient has insulin dependent diabetes mellitus. ?She is status post an acute non-ST elevation myocardial infarction. The ?patient also has a history of [...] ? abnormality. ?Medications Prior to Procedure: ? Angiotensin Converting Enzyme Inhibitor, Beta Shari and Statin. ? Indications for Diagnostic Cath: ?The priority of the diagnostic procedure was Urgent. The indication for ?the biological lab technician visit is ACS less than or equal to 24 hrs. Chest pain ?symptom assessment was: Typical Angina. One of the indications for cath ?is valvular heart disease. The patient has Moderate aortic stenosis. ? Technique: ?A 6Fr sheath was inserted in the right femoral artery utilizing the ?Seldinger technique. A 7Fr sheath was inserted in the right median ?antecubital vein utilizing the Seldinger technique. The left coronary ?artery was injected utilizing a 6Fr AL-1 catheter. A 6Fr JR 4 catheter ?was used to inject the right coronary artery. Right heart catheterization ?was performed utilizing a 7Fr SWAN-BIPIN catheter. Coronary stent ?insertion was performed and the equipment utilized will be described in ?the intervention summary section. 4,000 units of heparin were ?administered. A total of 200cc of Omnipaque were opened, 150cc of ?Omnipaque were administered and 50cc of Omnipaque were wasted. Radiation: ?Fluoro time was 29.0 minutes, dose area product was 203,609 mGYcm2 and ?air kerma was 3,430 mGY. See the case log for additional details. ?The patient received the following medications prior to and during the ?procedure: ? Unfractionated Heparin. ? Hemodynamics: ?Right Heart Pressures ? Resting: ? Syst Diast ? EDP ?a ?v ? m ?RA ? 16 ?10 ? 9 ?RV 42 ?10 ?PA 42 ?15 ?25 ?PCW ?25 ?26 ?18 ? Hemodynamic Profile: ?Profile 1 ? Profile 2 ?CO ? 5.48 ?4.88 ?CI ? 3.03 ?2.70 ?TSR ? 1,927 ? 2,164 ?SVR ? 1,796 ? 2,016 ?TPR ?365 ? 410 ?PVR ?102 ? 115 ?Technique ?Estimated Edmundo ?Thermodilution ?Left Heart Pressures ? Resting: ? Syst Diast ? EDP ?a ?v ? m ?Ao 199 ?? 85 ?132 ?LV 206 ? 21 ? Stenotic Valve Data: ?Aortic Valve ?Mean Gradient - 22 ? Oximetry: ?Location ? %Sat ?Location ?%Sat ?Main Pulmonary Artery ??66.0 ?Peripheral Arterial ? 98.0 ? Coronary Angiography: ?Dominance: Right ?Left Main ? There was mild diffuse (<=25% stenosis) disease of the entire vessel ? segment of the left main artery. ?Left Anterior Descending ? There was a 50% single discrete stenosis of the mid 1 segment of the ? left anterior descending artery (LAD). ??The LAD was large. ??The mid ? 2 segment of the LAD had a single discrete 50% stenosis. ? There was a 30% single discrete stenosis of the mid segment of the ? first diagonal branch (Diagonal 1) of the LAD. ??The Diagonal 1 was ? moderate in size. ? There was a 50% single discrete stenosis of the ostial segment of ? the second diagonal branch (Diagonal 2) of the LAD. ??The Diagonal 2 ? was small. ?Left Circumflex ? There was mild diffuse (<=25% stenosis) disease of the entire vessel ? segment of the left circumflex artery (LCX). ??The LCX was large. ? The ostial segment of the LCX had a single discrete 40% stenosis. ?Right Coronary Artery ? There was a 90% calcified single discrete stenosis of the ostial ? segment of the right coronary artery (RCA). ??The RCA was large. ? There was a 30% single discrete stenosis of the proximal segment of ? the right posterior descending branch (RPDA) of the RCA. ??The RPDA ? was moderate in size. ? Intravascular Imaging/Physiology: ?Intravascular Ultrasound was performed in the ostial RCA using a 6 Fr JR ?4 guiding catheter and a 3.5 Fr [facility] [place] [facility] ??20 Mhz. ??Imaging ?was successful. ??Image quality was good. ??The ostial RCA showed scattered ?atherosclerotic plaque. ?Post Intervention: The stent was well expanded and apposed. ?Additional Findings: Stent seen not extend past ostium, and adequately ?covered lesion. ? Indication for Intervention: ?Coronary intervention was indicated for primary therapy for an acute ?myocardial infarction. The priority for the procedure was Urgent. The ?NCDR indication for the procedure was NSTE-ACS. LVEF within one week was ?59%. Right Heart catheterization was initiated for Nonrheumatic aortic ?(valve) stenosis (I35.0). ? Intervention Summary: ?Right Coronary Artery ? Ostial 90% ? Stent insertion was performed on the 90% stenosis in the ? ostial segment of the RCA. This was a de sara lesion. ? According to the ACC/AHA classification system, this lesion ? was a type C high risk lesion. Primary prevention of ? restenosis was the indication for stent insertion. This was ? the culprit lesion. A guidewire was placed across this lesion. ? Vessel flow pre intervention was OLU 3. Lesion length was ? 12mm. ? Stent insertion was accomplished through a 6 Fr. JR 4 guide. ? The lesion was predilated with a 3.00mm Silex CB 15 MM ? balloon with a maximum inflation pressure of 10 atmospheres. ? A premounted 3.50 x 16 mm Synergy (ISIAH) was deployed with a ? maximum inflation pressure of 14 atmospheres. ??Following stent ? deployment, the lesion was dilated using a 3.50mm NC EMERGE 15 ? MM balloon with a maximum inflation pressure of 18 ? atmospheres. ? Another stent insertion was accomplished through a 6 Fr. JR 4 ? guide. ??A premounted 3.50 x 12 mm Synergy (ISIAH) was deployed ? with a maximum inflation pressure of 14 atmospheres. ? Following stent deployment, the lesion was dilated using a ? 3.50mm NC EUPHORA 15 MM balloon with a maximum inflation ? pressure of 20 atmospheres. ? The final outcome was defined as successful. The residual ? stenosis following this intervention was 10%. The final OLU ? flow was 3. ? Vascular Access: ?Vascular Access Angiogram: ? A selective angiogram at the right femoral artery revealed no ? significant obstructive disease. ?Vascular Ultrasound: ? Ultrasound of the right femoral artery was used to guide access and ? showed vessel patent with mild disease. Needle entry was observed. ?Vascular Access Management: ? Manual Compression of the right median antecubital vein access site ? was performed. ? A 6 Fr Perclose was deployed at the right femoral artery access ? site. This device was successful. Mechanical Compression of the ? right femoral artery access site was performed. ? Point of Care Testing: ?ABG: ? Arterial Blood gasses were performed using the I-Stat analyzer at ? 16:44: pH: 7.43, pCO2: 30.9, pO2: 58.0, sPO2: 91%, HCO3: 20 on FIO2: ? 100. ?I-Stat: ? I-Stat was performed using the I-Stat analyzer at 16:44: Na+: 139, ? K+: 3.4, iCa++: 1.16, Hct: 29%, Hb: 9.9. ? Dual Antiplatelet (DAPT) Recommendations: ?Drug eluting stent (ISIAH) inserted. ?P2Y12 Loading dose Clopidogrel 600 mg PO given in lab. ?Recommended anti-platelet/anti-thrombotic regimen: ?Continue aspirin 81 mg daily for indefinitely. ?Continue clopidogrel 75 mg daily for 6 months then stop. ?These recommendations are made at the time of the intervention. Patient ?and provider preferences or a changing clinical situation may require ?modification of this regimen. Consult [facility] Interventional Cardiology for ?questions. ?The 1 year bleeding risk as calculated by the PRECISE DAPT score is High ?risk. ? Conclusions: ?* Two vessel coronary artery disease (LAD and RCA) ?* Mild pulmonary hypertension ?* Elevated left ventricular end diastolic pressure ?* Successful stent insertion of the ostial RCA lesion ?* See Dual Antiplatelet (DAPT) Recommendations above. ? Complications/Events: ?The patient had no complications during these procedures. ? Comments: ?Ostial RCA treated with 2 Synergy drug eluting stents. Per guidelines, ?DAPT with aspirin and clopidogrel are recommended for 1 year after acute ?coronary syndrome (patient has NSTEMI). However, NSTEMI was in setting of ?demand (afib with RVR, rates 180). And, the patient has acute ?cholecystitis with the potential need for abdominal intervention. In this ?setting, synergy stents were placed and it may be reasonable to stop ?clopidogrel dosing (but continue the aspirin) for a brief time after 6 ?weeks, then continue for total 6 month time period. ?The attending physician was present for the entire procedure. ?Dr. Esau Rahman M.D. was present during the moderate sedation ?intraservice time as documented by the sedation nurse. ??Case time = 01:54. ?Dr. Esau Rahman M.D. performed the coronary angiography, right ?heart catheterization, oximetry, IVUS # coronary, stent insertion-coronary, ?ABG, access site angiography and vascular closure device. ? Esau Rahman, ? M.D. ? Electronically Signed by: Esau Rahman M.D. ? Report Finalized: 04/21/2020 ??18:44 ? Procedure Note Esau Rahman MD - 04/21/2020 [facility] Cardiac Catheterization/Intervention Report Patient Name: SHANNAN CHAUDHARY Procedure Date: 04/21/2020 A #: [id number] Primary Physician: Esau Rahman Case #: [id number] File Name: [id number] Catheterization Order Number: [id number] [facility] FinalReport [place], [place] Patient Name: SHANNAN CHAUDHARY ID#:[id number] :1940 Procedure Date: April 21, 2020 Case #: [id number] Room: 2 Case Physician: Esau Rahman M.D. Start: 15:54 Fellow: Sandy Camargo D.O. Admission:04/19/2020 Referring Physician: Reshma Baig M.D. Procedures: * Coronary Angiography * Coronary Ultrasound * Right Heart Catheterization * Oximetry * Coronary Stent Insertion * Vascular Closure Device Deployment * Access Site Angiography * Arterial Blood Gases History SHANNAN CHAUDHARY is a 79 year old woman. She has hypertension. The patient's smoking status is Never. She has hypercholesterolemiamanaged with lipid therapy. The patient has insulin dependent diabetesmellitus. She is status post an acute non-ST elevation myocardial infarction.The patient also has a history of atrial fibrillation/atrial flutter.Prior to the initiation of this procedure, the patient was designated asASA Class IV. The [facility] clinical frailty scale is 5: Mildly Frail. Diagnostic Tests: Prior Coronary Angiography: LV ejection fraction within 6 months is 59%. Electrocardiography: EKG was assessed by ECG. EKG was Abnormal. EKG showed other abnormality. Medications Prior to Procedure: Angiotensin Converting Enzyme Inhibitor, Beta Shari andStatin. Indications for Diagnostic Cath: The priority of the diagnostic procedure was Urgent. The indicationfor the biological lab technician visit is ACS less than or equal to 24 hrs. Chest pain symptom assessment was: Typical Angina. One of the indications forcath is valvular heart disease. The patient has Moderate aortic stenosis. Technique: A 6Fr sheath was inserted in the right femoral artery utilizing the Seldinger technique. A 7Fr sheath was inserted in the right median antecubital vein utilizing the Seldinger technique. The leftcoronary artery was injected utilizing a 6Fr AL-1 catheter. A 6Fr JR 4catheter was used to inject the right coronary artery. Right heartcatheterization was performed utilizing a 7Fr SWAN-BIPIN catheter. Coronary stent insertion was performed and the equipment utilized will be describedin the intervention summary section. 4,000 units of heparin were administered. A total of 200cc of Omnipaque were opened, 150cc of Omnipaque were administered and 50cc of Omnipaque were wasted.Radiation: Fluoro time was 29.0 minutes, dose area product was 203,609 [id number] air kerma was 3,430 mGY. See the case log for additional details. The patient received the following medications prior to and duringthe procedure: Unfractionated Heparin. Hemodynamics: Right Heart Pressures Resting: Syst Diast EDP a v m RA 16 10 9 RV 42 10 PA 42 15 25 PCW 25 26 18 Hemodynamic Profile: Profile 1 Profile 2 CO 5.48 4.88 CI 3.03 2.70 TSR 1,927 2,164 SVR 1,796 2,016 TPR 365 410 PVR 102 115 Technique Estimated Edmundo Thermodilution Left Heart Pressures Resting: Syst Diast EDP a v m Ao 199 85 132 LV 206 21 Stenotic Valve Data: Aortic Valve Mean Gradient - 22 Oximetry: Location %Sat Location %Sat Main Pulmonary Artery 66.0 Peripheral Arterial 98.0 Coronary Angiography: Dominance: Right Left Main There was mild diffuse (<=25% stenosis) disease of the entirevessel segment of the left main artery. Left Anterior Descending There was a 50% single discrete stenosis of the mid 1 segmentof the left anterior descending artery (LAD). The LAD was large. Themid 2 segment of the LAD had a single discrete 50% stenosis. There was a 30% single discrete stenosis of the mid segment ofthe first diagonal branch (Diagonal 1) of the LAD. The Diagonal 1was moderate in size. There was a 50% single discrete stenosis of the ostial segmentof the second diagonal branch (Diagonal 2) of the LAD. TheDiagonal 2 was small. Left Circumflex There was mild diffuse (<=25% stenosis) disease of the entirevessel segment of the left circumflex artery (LCX). The LCX waslarge. The ostial segment of the LCX had a single discrete 40%stenosis. Right Coronary Artery There was a 90% calcified single discrete stenosis of theostial segment of the right coronary artery (RCA). The RCA was large. There was a 30% single discrete stenosis of the proximalsegment of the right posterior descending branch (RPDA) of the RCA. TheRPDA was moderate in size. Intravascular Imaging/Physiology: Intravascular Ultrasound was performed in the ostial RCA using a 6Fr JR 4 guiding catheter and a 3.[address] [facility] [facility] [place] [address] 20 Mhz.Imaging was successful. Image quality was good. The ostial RCA showedscattered atherosclerotic plaque. Post Intervention: The stent was well expanded and apposed. Additional Findings: Stent seen not extend past ostium, andadequately covered lesion. Indication for Intervention: Coronary intervention was indicated for primary therapy for an acute myocardial infarction. The priority for the procedure was Urgent.The [facility] indication for the procedure was NSTE-ACS. LVEF within one weekwas 59%. Right Heart catheterization was initiated for Nonrheumaticaortic (valve) stenosis (I35.0). Intervention Summary: Right Coronary Artery Ostial 90% Stent insertion was performed on the 90% stenosis in the ostial segment of the RCA. This was a de sara lesion. According to the ACC/AHA classification system, thislesion was a type C high risk lesion. Primary prevention of restenosis was the indication for stent insertion. Thiswas the culprit lesion. A guidewire was placed across thislesion. Vessel flow pre intervention was OLU 3. Lesion lengthwas 12mm. Stent insertion was accomplished through a 6 Fr. JR 4guide. The lesion was predilated with a 3.00mm Silex CB 15MM balloon with a maximum inflation pressure of 10atmospheres. A premounted 3.50 x 16 mm Synergy (ISIAH) was deployed witha maximum inflation pressure of 14 atmospheres. Followingstent deployment, the lesion was dilated using a 3.50mm NCEMERGE 15 MM balloon with a maximum inflation pressure of 18 atmospheres. Another stent insertion was accomplished through a 6 Fr.JR 4 guide. A premounted 3.50 x 12 mm Synergy (ISIAH) wasdeployed with a maximum inflation pressure of 14 atmospheres. Following stent deployment, the lesion was dilated usinga 3.50mm NC EUPHORA 15 MM balloon with a maximum inflation pressure of 20 atmospheres. The final outcome was defined as successful. The residual stenosis following this intervention was 10%. The finalTIMI flow was 3. Vascular Access: Vascular Access Angiogram: A selective angiogram at the right femoral artery revealed no significant obstructive disease. Vascular Ultrasound: Ultrasound of the right femoral artery was used to guide accessand showed vessel patent with mild disease. Needle entry wasobserved. Vascular Access Management: Manual Compression of the right median antecubital vein accesssite was performed. A 6 Fr Perclose was deployed at the right femoral artery access site. This device was successful. Mechanical Compression of the right femoral artery access site was performed. Point of Care Testing: ABG: Arterial Blood gasses were performed using the I-Stat analyzerat 16:44: pH: 7.43, pCO2: 30.9, pO2: 58.0, sPO2: 91%, HCO3: 20 onFIO2: 100. I-Stat: I-Stat was performed using the I-Stat analyzer at 16:44: Na+:139, K+: 3.4, iCa++: 1.16, Hct: 29%, Hb: 9.9. Dual Antiplatelet (DAPT) Recommendations: Drug eluting stent (ISIAH) inserted. P2Y12 Loading dose Clopidogrel 600 mg PO given in lab. Recommended anti-platelet/anti-thrombotic regimen: Continue aspirin 81 mg daily for indefinitely. Continue clopidogrel 75 mg daily for 6 months then stop. These recommendations are made at the time of the intervention.Patient and provider preferences or a changing clinical situation mayrequire modification of this regimen. Consult [facility] Interventional Cardiologyfor questions. The 1 year bleeding risk as calculated by the PRECISE DAPT score isHigh risk. Conclusions: * Two vessel coronary artery disease (LAD and RCA) * Mild pulmonary hypertension * Elevated left ventricular end diastolic pressure * Successful stent insertion of the ostial RCA lesion * See Dual Antiplatelet (DAPT) Recommendations above. Complications/Events: The patient had no complications during these procedures. Comments: Ostial RCA treated with 2 Synergy drug eluting stents. Perguidelines, DAPT with aspirin and clopidogrel are recommended for 1 year afteracute coronary syndrome (patient has NSTEMI). However, NSTEMI was insetting of demand (afib with RVR, rates 180). And, the patient has acute cholecystitis with the potential need for abdominal intervention. Inthis setting, synergy stents were placed and it may be reasonable to stop clopidogrel dosing (but continue the aspirin) for a brief time after6 weeks, then continue for total 6 month time period. The attending physician was present for the entire procedure. Dr. Esau Rahman M.D. was present during the moderate sedation intraservice time as documented by the sedation nurse. Case time =01:54. Dr. Esau Rahman M.D. performed the coronary angiography,right heart catheterization, oximetry, IVUS # coronary, stentinsertion-coronary, ABG, access site angiography and vascular closure device. Esau Mcgarry M.D. Electronically Signed by: Esau Rahman M.D. Report Finalized: 04/21/2020 18:44 Esau Rahman MD CARDIAC CATH JESSICA BLOCK * POCT Glucose (04/21/2020 12:15 PM EDT) POC Glucose 180 65 - 199 mg/dL [facility] Comment: Supplemental ranges: <140 mg/dL before meals <180 mg/dL all other times of the day Blood specimen (specimen) 04/21/2020 12:15 PM EDT 04/21/2020 12:15 PM EDT Hong Rosenthal MD POINT OF CARE TEST O ISAIAH [facility] [place] [address] * XR Chest One View (04/21/2020 4:51 AM EDT) Anatomical Region Laterality Modality Chest N/A Digital Radiogra phy Impressions 04/21/2020 6:22 AM EDT FINDINGS/IMPRESSION: Elevated RIGHT hemidiaphragm with some degree of basilar pleural-parenchymal opacification (likely effusion with atelectasis, although aspiration or pneumonia not excluded). Pulmonary vascular congestion and mild pulmonary edema. No pneumothorax seen. Cardiopericardial silhouette appears slightly globular and prominent, possibly accentuated by patient rotation. Thank you for letting us participate in the care of this patient. For questions regarding this report, please contact the number below. ? Electronically signed by: Dylan Kinsey [facility] ([phone]), at 04/21/2020 6:22 AM Narrative 04/21/2020 6:22 AM EDT EXAMINATION: XR CHEST ONE VIEW CLINICAL HISTORY: Increased WOB and tachypnea TECHNIQUE: 1 view of the chest COMPARISON: 04/14/2020 Procedure Note Dylan Kinsey MD - 04/21/2020 EXAMINATION: XR CHEST ONE VIEW CLINICAL HISTORY: Increased WOB and tachypnea TECHNIQUE: 1 view of the chest COMPARISON: 04/14/2020 IMPRESSION FINDINGS/IMPRESSION: Elevated RIGHT hemidiaphragm with some degree of basilarpleural-parenchymal opacification (likely effusion with atelectasis, although aspiration or pneumonia not excluded). Pulmonary vascular congestion and mild pulmonaryedema. No pneumothorax seen. Cardiopericardial silhouette appears slightlyglobular and prominent, possibly accentuated by patient rotation. Thank you for letting us participate in the care of this patient. Forquestions regarding this report, please contact the number below. Electronically signed by: Dylan Kinsey [facility]([phone]), at 04/21/2020 6:22 AM Hong Rosenthal MD IMG DX ORDERABLES * (ABNORMAL) Troponin (04/21/2020 4:45 AM EDT) Troponin-T 0.13(H) 0.00 - 0.00 ng/mL [facility] Comment: The 99th percentile for Troponin T is less than 0.01 ng/mL, any detectable cTnT concentration using this assay should be considered elevated. According to the third universal definition of myocardial infarction the following criteria with a clinical presentation consistent with acute myocardial ischemia meets the diagnosis for a myocardial infarction ([place]). Detection of a rise and/or fall of cTnT, with at least one value greater than the 99th percentile (> or = 0.01) and with at least one of the following ?? Symptoms of ischemia ?? New or presumed new significant ZI-mreljzo-H wave (ST-T) changes or new left bundle [...] additional sample may be indicated. Reference: Third [place] Definition of Myocardial Infarction. Journal of the [place] [employer] 2012;60:1581-98 Blood specimen (specimen) 04/21/2020 4:45 AM EDT 04/21/2020 4:56 AM EDT Narrative Resulting Agency Comment Spec In Lab Hong Rosenthal MD CHEMISTRY ORDERABLES [facility] [place] [address] * EKG 12 Lead (04/21/2020 4:33 AM EDT) Pathologist [facility] Ventricular rate 83 BPM MUSE SYSTEM Atrial Rate 83 BPM MUSE SYSTEM P-R Interval 148 ms MUSE SYSTEM QRS Duration 138 ms MUSE SYSTEM Q-T Interval 408 ms MUSE SYSTEM QTC Calculated (Bezet) 479 ms MUSE SYSTEM Calculated P [place] 57 degrees MUSE SYSTEM Calculated R [place] 49 degrees MUSE SYSTEM Calculated T [place] 19 degrees MUSE SYSTEM INTERPRETATION Normal sinus rhythm Right bundle branch block Abnormal ECG When compared with ECG of 20-APR-2020 14:08, (unconfirmed) No significant change was found I personally reviewed the tracing and edited the fellows interpretation Confirmed by fellow Ren Quinn ([id number]) on 04/21/2020 1:32:16 PM Confirmed by Lisbeth Cain ([id number]) on 04/21/2020 7:47:23 PM MUSE SYSTEM 04/21/2020 4:33 AM EDT 04/21/2020 7:47 PM EDT Hong Rosenthal MD ECG ORDERABLES Performing Organization Address City/[facility]/ZIP Co de Phone Number MUSE SYSTEM * POCT Glucose (04/21/2020 3:53 AM EDT) [facility] POC Glucose 138 65 - 199 mg/dL [facility] Comment: Supplemental ranges: <140 mg/dL before meals <180 mg/dL all other times of the day Blood specimen (specimen) 04/21/2020 3:53 AM EDT 04/21/2020 3:53 AM EDT Hong Rosenthal MD POINT OF CARE TEST O RDERABLES Performing Organization Address [facility] Co de Phone Number [facility] [place] [address] * (ABNORMAL) Differential, Automated (04/21/2020 3:30 AM EDT) [facility] Neutrophils % 86.1 % [facility] Neutr Abs (ANC) 14.52(H) 1.70 - 6.10 x10(3)/mc L [facility] Lymphocytes % 6.9 % [facility] Lymphocytes Abs 1.2 0.9 - 3.2 x10(3)/mc L [facility] Monocytes % 5.2 % [facility] Monocyte Abs 0.9 0.3 - 0.9 x10(3)/mc L [facility] Eosinophils % 0.4 % [facility] Eosinophils Abs 0.1 0.0 - 0.4 x10(3)/mc L [facility] Basophils % 0.2 % [facility] Basophils Abs 0.0 0.0 - 0.1 x10(3)/mc L [facility] Immature Gran % 1.20 % [facility] Comment: Immature granulocytes(IG's)percentage and absolute count will include metamyelocytes, myelocytes, and promyelocytes. Blood smears from CBCs yielding IG's will be scanned manually for concordance. If this scan disagrees with the automated IG or if promyelocytes are noted, a manual differential will be performed. Nanci Gran Abs 0.20(H) 0.00 - 0.04 x10(3)/mc L [facility] Blood specimen (specimen) 04/21/2020 3:30 AM EDT 04/21/2020 3:34 AM EDT Narrative Resulting Agency Comment Spec In Lab Tiesha Morgan MD HEMATOLOGY ORDERABLE S Performing Organization Address City/State/[facility] Co de Phone Number [facility] [place] [address] * (ABNORMAL) Hemogram (04/21/2020 3:30 AM EDT) WBC 16.9(H) 4.0 - 9.5 x10(3)/[facility] RBC 3.68(L) 4.00 - 5.21 x10(6)/[facility] Hemoglobin 10.1(L) 11.7 - 15.5 gm/dL [facility] Hematocrit 31.1(L) 35.7 - 45.8 % [facility] MCV 84.5 82.6 - 94.4 fL [facility] MCH 27.4 27.1 - 32.0 pg [facility] MCHC 32.5 31.7 - 35.0 gm/dL [facility] Platelets 275 145 - 357 x10(3)/[facility] RDWSD 47.4(H) 37.0 - 46.0 fL [facility] RDWCV 15.3(H) 11.5 - 14.1 % [facility] MPV 10.4 7.6 - 12.9 fL [facility] nRBC % Auto 0.0 % [facility] nRBC Abs Auto 0.000 0.000 - 0.000 x10(3)/mcL [facility] Blood specimen (specimen) 04/21/2020 3:30 AM EDT 04/21/2020 3:34 AM EDT Narrative Resulting Agency Comment Spec In Lab Tiesha Morgan MD HEMATOLOGY ORDERABLE S Performing Organization Address City/[facility]/ZIP Co de Phone Number [facility] [place] [address] * (ABNORMAL) Magnesium (04/21/2020 3:30 AM EDT) Magnesium 1.09(H) 0.69 - 1.07 mmol/L [facility] Comment:result rechecked-kk Blood specimen (specimen) 04/21/2020 3:30 AM EDT 04/21/2020 3:34 AM EDT Narrative Resulting Agency Comment Spec In Lab Dale Dash MD CHEMISTRY ORDERABLES Performing Organization Address [facility] Co de Phone Number [facility] [place] [address] * (ABNORMAL) Prothrombin Time (04/21/2020 3:30 AM EDT) PT 14.4(H) 9.4 - 12.5 sec [facility] INR 1.2 [facility] [...] depending on clinical circumstances. Blood specimen (specimen) 04/21/2020 3:30 AM EDT 04/21/2020 3:34 AM EDT Narrative Resulting Agency Comment Spec In Lab Magdalene Lopez MD HEMATOLOGY ORDERABLE S [facility] [place] [address] * (ABNORMAL) Comprehensive metabolic panel (non-fasting) (04/21/2020 3:30 AM EDT) Glucose Lvl 149 65 - 199 mg/dL [facility] Comment:Diabetes: >=200 mg/d L plus symptoms BUN 39(H) 8 - 18 mg/dL [facility] Creatinine 1.31(H) 0.70 - 1.20 mg/dL [facility] Sodium 138 135 - 145 mmol/L [facility] Potassium 3.7 3.5 - 5.0 mmol/L [facility] Comment: Please note: ??Patients with WBC >100,000 may have falsely elevated Potassium levels. ??For accurate Potassium quantification in these patients send serum separator tube (gold top) for subsequent determinations. ??Contact the Clinical Chemistry Laboratory if there are any questions. Chloride 102 98 - 107 mmol/L [facility] CO2 21(L) 22 - 31 mmol/L [facility] Anion Gap 15 5 - 15 mmol/L [facility] Calcium 8.6 8.5 - 10.5 mg/dL [facility] Total Protein 6.6 6.1 - 8.0 gm/dL [facility] Albumin 3.1(L) 3.2 - 5.2 gm/dL [facility] AST 38(H) 0 - 30 unit/L [facility] Comment:result rechecked-kk ALT 29 0 - 30 unit/L [facility] Alk Phos 257(H) 35 - 105 unit/L [facility] Comment:result rechecked-kk Total Bilirubin 1.0 0.2 - 1.3 mg/dL [facility] Estimated GFR 39(L) >=60 mL/min/1. 73 m?? [facility] Comment: The eGFR was calculated using the CKD-EPI equation. As with all creatinine based estimates of kidney function, eGFR values calculated with the CKD-EPI equation are not accurate in patients with acute kidney failure, extremes of body mass or the acutely ill. http://1000memories/[facility]nkf eGFR 45(L) >=60 mL/min/1. 73 m?? [facility] Comment: The eGFR was calculated using the CKD-EPI equation. As with all creatinine based estimates of kidney function, eGFR values calculated with the CKD-EPI equation are not accurate in patients with acute kidney failure, extremes of body mass or the acutely ill. http://1000memories/[facility]nkf Blood specimen (specimen) 04/21/2020 3:30 AM EDT 04/21/2020 3:34 AM EDT Narrative Resulting Agency Comment Spec In Lab Dale Dash MD CHEMISTRY ORDERABLES [facility] [place] [address] * (ABNORMAL) Troponin (04/20/2020 11:55 PM EDT) Troponin-T 0.12(H) 0.00 - 0.00 ng/mL [facility] Comment: The 99th percentile for Troponin T is less than 0.01 ng/mL, any detectable cTnT concentration using this assay should be considered elevated. According to the third universal definition of myocardial infarction the following criteria with a clinical presentation consistent with acute myocardial ischemia meets the diagnosis for a myocardial infarction ([place]). Detection of a rise and/or fall of cTnT, with at least one value greater than the 99th percentile (> or = 0.01) and with at least one of the following ?? Symptoms of ischemia ?? New or presumed new significant KS-ltsacep-G wave (ST-T) changes or new left bundle [...] additional sample may be indicated. Reference: Third [place] Definition of Myocardial Infarction. Journal of the [place] [employer] 2012;60:1581-98 Blood specimen (specimen) 04/20/2020 11:55 PM EDT 04/21/2020 1:03 AM EDT Narrative Resulting Agency Comment Spec In Lab Hong Rosenthal MD CHEMISTRY ORDERABLES Performing Organization Address [facility] Co de Phone Number [facility] [place] [address] * POCT Glucose (04/20/2020 11:46 PM EDT) POC Glucose 144 65 - 199 mg/dL [facility] Comment: Supplemental ranges: <140 mg/dL before meals <180 mg/dL all other times of the day Blood specimen (specimen) 04/20/2020 11:46 PM EDT 04/20/2020 11:46 PM EDT Hong Rosenthal MD POINT OF CARE TEST O RDERABLES Performing Organization Address [facility] Co de Phone Number [facility] [place] [address] * POCT Glucose (04/20/2020 7:42 PM EDT) POC Glucose 136 65 - 199 mg/dL [facility] Comment: Supplemental ranges: <140 mg/dL before meals <180 mg/dL all other times of the day Blood specimen (specimen) 04/20/2020 7:42 PM EDT 04/20/2020 7:42 PM EDT Hong Rosenthal MD POINT OF CARE TEST O RDROBIN Performing Organization Address City/[facility]/ZIP Co de Phone Number [facility] [place] [address] * (ABNORMAL) Troponin (04/20/2020 5:35 PM EDT) Troponin-T 0.17(H) 0.00 - 0.00 ng/mL [facility] Comment: The 99th percentile for Troponin T is less than 0.01 ng/mL, any detectable cTnT concentration using this assay should be considered elevated. According to the third universal definition of myocardial infarction the following criteria with a clinical presentation consistent with acute myocardial ischemia meets the diagnosis for a myocardial infarction ([place]). Detection of a rise and/or fall of cTnT, with at least one value greater than the 99th percentile (> or = 0.01) and with at least one of the following ?? Symptoms of ischemia ?? New or presumed new significant BU-yxymwvg-E wave (ST-T) changes or new left bundle [...] additional sample may be indicated. Reference: Third [place] Definition of Myocardial Infarction. Journal of the [place] [employer] 2012;60:1581-98 Blood specimen (specimen) 04/20/2020 5:35 PM EDT 04/20/2020 5:54 PM EDT Narrative Resulting Agency Comment Spec In Lab Magdalene Lopez MD CHEMISTRY ORDERABLES [facility] [place] [address] * POCT Glucose (04/20/2020 4:01 PM EDT) Pathologist [facility] POC Glucose 135 65 - 199 mg/dL [facility] Comment: Supplemental ranges: <140 mg/dL before meals <180 mg/dL all other times of the day Blood specimen (specimen) 04/20/2020 4:01 PM EDT 04/20/2020 4:01 PM EDT Magdalene Lopez MD POINT OF CARE TEST O RDERABLES Performing Organization Address City/[facility]/ZIP Co de Phone Number [facility] [place] [address] * EKG 12 Lead (04/20/2020 2:08 PM EDT) Ventricular rate 97 BPM MUSE SYSTEM Atrial Rate 97 BPM MUSE SYSTEM P-R Interval 150 ms MUSE SYSTEM QRS Duration 126 ms MUSE SYSTEM Q-T Interval 382 ms MUSE SYSTEM QTC Calculated (Bezet) 485 ms MUSE SYSTEM Calculated P [place] 58 degrees MUSE SYSTEM Calculated R [place] 35 degrees MUSE SYSTEM Calculated T [place] 11 degrees MUSE SYSTEM INTERPRETATION Normal sinus rhythm with sinus arrhythmia Right bundle branch block Abnormal ECG When compared with ECG of 20-APR-2020 11:30, (unconfirmed) No significant change was found Confirmed by Lisbeth Cain ([email or web address]) on 04/21/2020 3:48:13 PM MUSE SYSTEM 04/20/2020 2:08 PM EDT 04/21/2020 3:48 PM EDT Magdalene Lopez MD ECG ORDERABLES Performing Organization Address [facility]/ZIP Co de Phone Number MUSE SYSTEM * POCT Glucose (04/20/2020 11:32 AM EDT) [facility] POC Glucose 140 65 - 199 mg/dL [facility] Comment: Supplemental ranges: <140 mg/dL before meals <180 mg/dL all other times of the day Blood specimen (specimen) 04/20/2020 11:32 AM EDT 04/20/2020 11:32 AM EDT Magdalene Lopez MD POINT OF CARE TEST O RDERABLES Performing Organization Address [facility]/ZIP Co de Phone Number [facility] [place] [address] * EKG 12 Lead (04/20/2020 11:30 AM EDT) Ventricular rate 77 BPM MUSE SYSTEM Atrial Rate 77 BPM MUSE SYSTEM P-R Interval 160 ms MUSE SYSTEM QRS Duration 120 ms MUSE SYSTEM Q-T Interval 406 ms MUSE SYSTEM QTC Calculated (Bezet) 459 ms MUSE SYSTEM Calculated P [place] 48 degrees MUSE SYSTEM Calculated R [place] 27 degrees MUSE SYSTEM Calculated T [place] 18 degrees MUSE SYSTEM INTERPRETATION Sinus rhythm with premature atrial contractions Right bundle branch block Abnormal ECG When compared with ECG of 20-APR-2020 02:33, (unconfirmed) Sinus rhythm has replaced Atrial fibrillation Vent. rate has decreased BY ??[address] no longer depressed in Anterolateral leads Nonspecific T wave abnormality has replaced inverted T waves in Inferior leads Confirmed by Lisbeth Cain ([email or web address]) on 04/21/2020 3:48:08 PM MUSE SYSTEM 04/20/2020 11:3 0 AM EDT 04/21/2020 3:48 PM EDT Magdalene Lopez MD ECG ORDERABLES MUSE SYSTEM * (ABNORMAL) Troponin (04/20/2020 11:30 AM EDT) Troponin-T 0.22(H) 0.00 - 0.00 ng/mL [facility] Comment: The 99th percentile for Troponin T is less than 0.01 ng/mL, any detectable cTnT concentration using this assay should be considered elevated. According to the third universal definition of myocardial infarction the following criteria with a clinical presentation consistent with acute myocardial ischemia meets the diagnosis for a myocardial infarction ([place]). Detection of a rise and/or fall of cTnT, with at least one value greater than the 99th percentile (> or = 0.01) and with at least one of the following ?? Symptoms of ischemia ?? New or presumed new significant IC-alufpmw-M wave (ST-T) changes or new left bundle [...] additional sample may be indicated. Reference: Third [place] Definition of Myocardial Infarction. Journal of the [place] [employer] 2012;60:1581-98 Blood specimen (specimen) 04/20/2020 11:30 AM EDT 04/20/2020 11:45 AM EDT Narrative Resulting Agency Comment Spec In Lab Magdalene Lopez MD CHEMISTRY ORDERABLES [facility] [place] [address] * ECHO COMPLETE (04/20/2020 10:20 AM EDT) EF 59 HEARTLAB SYSTEM Anatomical Region Laterality Modality Other 04/20/2020 Narrative 04/20/2020 12:35 PM EDT Procedure: ?Transthoracic Echocardiogram Patient: ?HEIDY VAUGHNOTHY A ? (Age): 1940(79y) Med Rec#: ? [id number] ?Sex: ?F ? Site Loc: ? [facility] ?Ht / Wt: ??152(cm)/86(kg) Pt. Loc: ?ICU ? BSA: ?1.82 Study Date: ?? 04/20/2020 ?Pt. Type: Inpatient Tape: ? Referring: BETHANY IRELAND A Reading: Ari Rutledge ([id number]) [employer] Specialist: Hong Ahn DAVID Interpreting Fellow: Cris Rosario ([id number]) Interpreting Fellow: Oscar Barger ([id number]) Diagnosis: *Nonrheumatic aortic (valve) stenosis (I35.0) BP: ? 89/68 SUMMARY: 1. Mild concentric left ventricular hypertrophy [...] by low stroke volume index (23 ml/m2). Findings ? : Left Ventricle: ? The left ventricular chamber size is normal. ?Mild concentric left ventricular hypertrophy is observed. ?There is mild septal hypertrophy of the left ventricle. ?No ventricular septal defect is visualized. ?There is normal global left ventricular systolic function. ?The quantitative left ventricular ejection fraction by biplane Olivera's method is 59%. ?There are no left ventricular segmental wall motion abnormalities. ?Doppler assessment is consistent with elevated left sided filling pressure. Left Atrium: ? The left atrium is moderately dilated.47 ml/m2 Right Ventricle: ? Right ventricular chamber size, wall thickness, and systolic function are within normal limits. ?The estimated pulmonary artery systolic pressure is 33 mmHg. ?The estimated right atrial pressure is 8 mmHg. Right Atrium: ? The right atrium appears normal. Aortic Valve: ? The aortic valve is probably tricuspid. ?The aortic valve leaflets are severely thickened. ?Systolic excursion of the aortic valve cusps is reduced. ?There is aortic annular calcification. ?The peak instantaneous trans-valvular gradient across ??the aortic valve is 21 mmHg. ?The mean trans-valvular gradient across ??the aortic valve is 12 mmHg. ?The calculated aortic valve area is 0.8 cm2. ?There is severe aortic valve stenosis.SVI - 23 ml/m2 ?Mild (1+/4+) aortic valve regurgitation is present. Mitral Valve: ? The mitral valve leaflets are mildly thickened. ?There is mitral annular calcification. ?The peak gradient across the mitral valve is 12 mmHg. ?The mean gradient across the mitral valve is 5 mmHg. ?There is mild mitral stenosis present. ?There is mild (1+/4+) mitral regurgitation present. Tricuspid Valve: ? The tricuspid valve appears normal in structure and function. ?There is mild to moderate (1-2+/4+) tricuspid regurgitation present. Pulmonic Valve: ? The pulmonic valve is not well visualized. ?There is no evidence of pulmonic regurgitation. Pericardium: ? The pericardium appears normal and [...] dimension consistent with elevated right atrial pressure. Misc: ? Two-dimensional echo, spectral Doppler and color Doppler performed. Chambers 2D ?Value ?Units (Range) ? IVSd (2D) ? 1.62 ? cm ? LVPWd (2D) ?1.14 ? cm ? IVS:LVPW ratio (2D) 1.42 ? ratio ? RWT (2D) ?0.71 ? ratio ? RWT PW (2D) ? 0.58 ? ratio ? LVIDd (2D) ?3.91 ? cm ? LVIDs (2D) ?2.74 ? cm ? LVIDd (2D) index ?2.15 ? cm/m2 ? LVIDs (2D) index ?1.5 ?cm/m2 ? LV FS (2D) ?29.92 ?% ? EF Teichholz (2D) ?? 57.75 ?% ? Ao root diameter (2D2.9 ?cm (2.1 - 3.6) ? Ascending Ao ?3.2 ?cm (2 - 3.5) ? Volumes/Mass ?Value ?Units (Range) ? LA Area 4 CH ?20 ? cm2 (<21) ? RA AREA 4CH ? 13 ? cm2 ? LA ESV BP (MOD) inde46.67 ?ml/m2 ? LV ESV SP 4CH (MOD) 25 ? ml ? LV ESV SP 2CH (MOD) 26 ? ml ? LV EDV BP ? 61 ? ml ? LV ESV BP ? 25 ? ml ? LV EDV BP index ? 33.49 ?ml/m2 ? LV ESV BP index ? 13.73 ?ml/m2 ? BP EF (MOD) ? 59.02 ?% ? LV mass (2D) ?197.75 ? g ? LV mass (2D) index ??108.58 ? g/m2 ? Diastolic/Systolic Function ?Value ?Units (Range) ? MV E-wave Vmax ?1.48 ? m/sec ? MV deceleration hbcm408 ?msec ? MV A-wave Vmax ?0.78 ? m/sec ? MV E:A ratio ?1.9 ?ratio ? LV septal e' Vmax ?? 0.04 ? m/sec ? LV lateral e' Vmax ??0.04 ? m/sec ? LV average e' Vmax ??0.04 ? m/sec ? LV E:e' septal ratio33.71 ?ratio ? LV E:e' lateral rati39.26 ?ratio ? LV average E:e' rati36.27 ?ratio ? Aortic Valve ?Value ?Units (Range) ? AV Vmax ? 2.28 ? m/sec ? AV VTI ?46.9 ? cm ? AV peak gradient ?21 ? mmHg ? AV mean gradient ?12 ? mmHg ? LVOT diameter ? 1.8 ?cm ? LVOT Vmax ? 0.74 ? m/sec ? LVOT VTI ?16.5 ? cm ? LVOT peak gradient ??2 ?mmHg ? LVOT mean gradient ??1 ?mmHg ? DOI (VTI) ? 0.35 ? ratio ? DOI (Vmax) ?0.32 ? ratio ? SV LVOT ? 41.97 ?ml ? CORINE (continuity Vmax0.8 ?cm2 ? CORINE (continuity Vmax0.45 ? cm2/m2 ? CORINE (continuity VTI)0.89 ? cm ? CORINE (continuity VTI)0.49 ? cm2/m2 ? Mitral Valve ?Value ?Units (Range) ? MV Vmax ? 1.74 ? m/sec ? MV VTI ?49.2 ? cm ? MV peak gradient ?12 ? mmHg ? MV mean gradient ?5 ?mmHg ? MV PHT ?104 ?msec ? MVA (PHT) ? 2.1 ?cm2 ? MVA (continuity VTI)0.85 ? cm2 ? Tricuspid Valve ?Value ?Units (Range) ? TR Vmax ? 2.49 ? m/sec ? TR peak gradient ?24.8 ? mmHg ? RAP ? 8 ?mmHg ? RVSP ?33 ? mmHg ? Wall Motion: Segment Name ?Rest ? Base-Anteroseptal ?? Normal ? Base-Anterior ? Normal ? Base-Anterolateral ??Normal ? Base-Posterolateral Normal ? Base-Inferior ? Normal ? Base-Inferoseptal ?? Normal ? Mid-Anteroseptal ?Normal ? Mid-Anterior ?Normal ? Mid-Anterolateral ?? Normal ? Mid-Posterolateral ??Normal ? Mid-Inferior ?Normal ? Mid-Inferoseptal ?Normal ? Lula-Septal ? Normal ? Lula-Anterior ? Normal ? Lula-Lateral ?Normal ? Lula-Inferior ? Normal ? Lula-Tip ?Normal ? This report has been electronically signed by: Ari Rutledge MD ? 04/20/2020 12:35:04 Images reviewed and interpretation verified [facility] Procedure Note Ari Rutledge MD - 04/20/2020 Procedure: Transthoracic Echocardiogram Patient: HEIDY Francis DOB(Age): 1940(79y) Med Rec#: [id number] Sex: F Site Loc: [facility] Ht / Wt: 152(cm)/86(kg) Pt. Loc: ICU BSA: 1.82 Study Date: 04/20/2020 Pt. Type: Inpatient Tape: Referring: BETHANY IRELAND A Reading: Ari Rutledge ([id number]) [employer] Specialist: Hong Ahn [facility] Interpreting Fellow: Cris Rosario ([id number]) Interpreting Fellow: Oscar Barger ([id number]) Diagnosis: *Nonrheumatic aortic (valve) stenosis (I35.0) BP: 89/68 SUMMARY: 1. Mild concentric left ventricular hypertrophy [...] by low stroke volume index (23 ml/m2). Findings : Left Ventricle: The left ventricular chamber size is normal. Mild concentric left ventricular hypertrophy is observed. There is mild septal hypertrophy of the left ventricle. No ventricular septal defect is visualized. There is normal global left ventricular systolic function. The quantitative left ventricular ejection fraction by biplane Olivera's method is 59%. There are no left ventricular segmental wall motion abnormalities. Doppler assessment is consistent with elevated left sided filling pressure. Left Atrium: The left atrium is moderately dilated.47 ml/m2 Right Ventricle: Right ventricular chamber size, wall thickness, and systolic function are within normal limits. The estimated pulmonary artery systolic pressure is 33 mmHg. The estimated right atrial pressure is 8 mmHg. Right Atrium: The right atrium appears normal. Aortic Valve: The aortic valve is probably tricuspid. The aortic valve leaflets are severely thickened. Systolic excursion of the aortic valve cusps is reduced. There is aortic annular calcification. The peak instantaneous trans-valvular gradient across the aortic valve is 21 mmHg. The mean trans-valvular gradient across the aortic valve is 12 mmHg. The calculated aortic valve area is 0.8 cm2. There is severe aortic valve stenosis.SVI - 23 ml/m2 Mild (1+/4+) aortic valve regurgitation is present. Mitral Valve: The mitral valve leaflets are mildly thickened. There is mitral annular calcification. The peak gradient across the mitral valve is 12 mmHg. The mean gradient across the mitral valve is 5 mmHg. There is mild mitral stenosis present. There is mild (1+/4+) mitral regurgitation present. Tricuspid Valve: The tricuspid valve appears normal in structure and function. There is mild to moderate (1-2+/4+) tricuspid regurgitation present. Pulmonic Valve: The pulmonic valve is not well visualized. There is no evidence of pulmonic regurgitation. Pericardium: The pericardium appears normal and there [...] dimension consistent with elevated right atrial pressure. Misc: Two-dimensional echo, spectral Doppler and color Doppler performed. Chambers 2D Value Units (Range) IVSd (2D) 1.62 cm LVPWd (2D) 1.14 cm IVS:LVPW ratio (2D) 1.42 ratio RWT (2D) 0.71 ratio RWT PW (2D) 0.58 ratio LVIDd (2D) 3.91 cm LVIDs (2D) 2.74 cm LVIDd (2D) index 2.15 cm/m2 LVIDs (2D) index 1.5 cm/m2 LV FS (2D) 29.92 % EF Teichholz (2D) 57.75 % Ao root diameter (2D2.9 cm (2.1 - 3.6) Ascending Ao 3.2 cm (2 - 3.5) Volumes/Mass Value Units (Range) LA Area 4 CH 20 cm2 (<21) RA AREA 4CH 13 cm2 LA ESV BP (MOD) inde46.67 ml/m2 LV ESV SP 4CH (MOD) 25 ml LV ESV SP 2CH (MOD) 26 ml LV EDV BP 61 ml LV ESV BP 25 ml LV EDV BP index 33.49 ml/m2 LV ESV BP index 13.73 ml/m2 BP EF (MOD) 59.02 % LV mass (2D) 197.75 g LV mass (2D) index 108.58 g/m2 Diastolic/Systolic Function Value Units (Range) MV E-wave Vmax 1.48 m/sec MV deceleration [id number] msec MV A-wave Vmax 0.78 m/sec MV E:A ratio 1.9 ratio LV septal e' Vmax 0.04 m/sec LV lateral e' Vmax 0.04 m/sec LV average e' Vmax 0.04 m/sec LV E:e' septal ratio33.71 ratio LV E:e' lateral rati39.26 ratio LV average E:e' rati36.27 ratio Aortic Valve Value Units (Range) AV Vmax 2.28 m/sec AV VTI 46.9 cm AV peak gradient 21 mmHg AV mean gradient 12 mmHg LVOT diameter 1.8 cm LVOT Vmax 0.74 m/sec LVOT VTI 16.5 cm LVOT peak gradient 2 mmHg LVOT mean gradient 1 mmHg DOI (VTI) 0.35 ratio DOI (Vmax) 0.32 ratio SV LVOT 41.97 ml CORINE (continuity Vmax0.8 cm2 CORINE (continuity Vmax0.45 cm2/m2 CORINE (continuity VTI)0.89 cm CORINE (continuity VTI)0.49 cm2/m2 Mitral Valve Value Units (Range) MV Vmax 1.74 m/sec MV VTI 49.2 cm MV peak gradient 12 mmHg MV mean gradient 5 mmHg MV PHT 104 msec MVA (PHT) 2.1 cm2 MVA (continuity VTI)0.85 cm2 Tricuspid Valve Value Units (Range) TR Vmax 2.49 m/sec TR peak gradient 24.8 mmHg RAP 8 mmHg RVSP 33 mmHg Wall Motion: Segment Name Rest Base-Anteroseptal Normal Base-Anterior Normal Base-Anterolateral Normal Base-Posterolateral Normal Base-Inferior Normal Base-Inferoseptal Normal Mid-Anteroseptal Normal Mid-Anterior Normal Mid-Anterolateral Normal Mid-Posterolateral Normal Mid-Inferior Normal Mid-Inferoseptal Normal Lula-Septal Normal Lula-Anterior Normal Lula-Lateral Normal Lula-Inferior Normal Lula-Tip Normal This report has been electronically signed by: Ari Rutledge MD 04/20/2020 12:35:04 Images reviewed and interpretation verified [facility] Magdalene Lopez MD ECHO ORDERABLES * POCT Glucose (04/20/2020 8:10 AM EDT) POC Glucose 128 65 - 199 mg/dL [facility] Comment: Supplemental ranges: <140 mg/dL before meals <180 mg/dL all other times of the day Blood specimen (specimen) 04/20/2020 8:10 AM EDT 04/20/2020 8:10 AM EDT Magdalene Lopez MD POINT OF CARE TEST O RDERABLES [facility] [place] [address] * Lactate, whole blood, send to lab ([facility]) (04/20/2020 5:25 AM EDT) [facility] Lactate WB 1.6 0.5 - 2.2 mmol/L [facility] Blood specimen (specimen) Venous Draw / Unknown 04/20/2020 5:25 AM EDT 04/20/2020 6:46 AM EDT Narrative Resulting Agency Comment Spec In Lab Ginna Josue DO CHEMISTRY ORDERABLES Performing Organization Address City/[facility]/ZIP Co de Phone Number [facility] [place] [address] * POCT Glucose (04/20/2020 5:23 AM EDT) [facility] POC Glucose 151 65 - 199 mg/dL [facility] Comment: Supplemental ranges: <140 mg/dL before meals <180 mg/dL all other times of the day Blood specimen (specimen) 04/20/2020 5:23 AM EDT 04/20/2020 5:23 AM EDT Magdalene Lopez MD POINT OF CARE TEST O RDERABLES Performing Organization Address City/[facility]/ZIP Co de Phone Number [facility] [place] [address] * (ABNORMAL) Differential, Automated (04/20/2020 3:25 AM EDT) [facility] Neutrophils % 86.0 % [facility] Neutr Abs (ANC) 15.43(H) 1.70 - 6.10 x10(3)/mc L [facility] Lymphocytes % 5.4 % [facility] Lymphocytes Abs 1.0 0.9 - 3.2 x10(3)/mc L [facility] Monocytes % 5.9 % [facility] Monocyte Abs 1.0(H) 0.3 - 0.9 x10(3)/mc L [facility] Eosinophils % 0.4 % [facility] Eosinophils Abs 0.1 0.0 - 0.4 x10(3)/[facility] Basophils % 0.3 % [facility] Basophils Abs 0.1 0.0 - 0.1 x10(3)/[facility] LABOR[facility]ORY Immature Gran % 2.00 % [facility] Comment: Immature granulocytes(IG's)percentage and absolute count will include metamyelocytes, myelocytes, and promyelocytes. Blood smears from CBCs yielding IG's will be scanned manually for concordance. If this scan disagrees with the automated IG or if promyelocytes are noted, a manual differential will be performed. Nanci Gran Abs 0.36(H) 0.00 - 0.04 x10(3)/[facility] Blood specimen (specimen) 04/20/2020 3:25 AM EDT 04/20/2020 3:32 AM EDT Narrative Resulting Agency Comment Spec In Lab Tiesha Morgan MD HEMATOLOGY ORDERABLE S [facility] [place] [address] * (ABNORMAL) Hemogram (04/20/2020 3:25 AM EDT) WBC 17.9(H) 4.0 - 9.5 x10(3)/[facility] LAB[facility]AT[facility] RBC 3.75(L) 4.00 - 5.21 x10(6)/[facility] LAB[facility]ATORY Hemoglobin 10.3(L) 11.7 - 15.5 gm/dL [facility] Hematocrit 32.6(L) 35.7 - 45.8 % [facility] MCV 86.9 82.6 - 94.4 fL [facility] MCH 27.5 27.1 - 32.0 pg [facility] MCHC 31.6(L) 31.7 - 35.0 gm/dL [facility] Platelets 217 145 - 357 x10(3)/[facility] LAB[facility]ATORY RDWSD 48.5(H) 37.0 - 46.0 [facility]ORY RDWCV 15.0(H) 11.5 - 14.1 % [facility] MPV 10.7 7.6 - 12.9 fL [facility] nRBC % Auto 0.0 % [facility] nRBC Abs Auto 0.000 0.000 - 0.000 x10(3)/[facility] Blood specimen (specimen) 04/20/2020 3:25 AM EDT 04/20/2020 3:32 AM EDT Narrative Resulting Agency Comment Spec In Lab Tiesha Morgan MD HEMATOLOGY ORDERABLE S [facility] [place] [address] * POCT Glucose (04/20/2020 3:08 AM EDT) POC Glucose 134 65 - 199 mg/dL [facility] Comment: Supplemental ranges: <140 mg/dL before meals <180 mg/dL all other times of the day Blood specimen (specimen) 04/20/2020 3:08 AM EDT 04/20/2020 3:08 AM EDT Magdalene Lopez MD POINT OF CARE TEST O RDERABLES [facility] [place] [address] * Lipase (04/20/2020 2:43 AM EDT) Lipase 11 0 - 60 unit/L [facility] Blood specimen (specimen) Venous Draw / Unknown 04/20/2020 2:43 AM EDT 04/20/2020 3:32 AM EDT Narrative Resulting Agency Comment Spec In Lab Jos Sun MD CHEMISTRY ORDERABLES Performing Organization Address City/[facility]/ZIP Co de Phone Number [facility] [place] [address] * (ABNORMAL) Hepatic Function Panel (04/20/2020 2:43 AM EDT) Total Protein Not Perf 6.1 - 8.0 [facility] Comment:Duplicate order, alr addis done in CMP Albumin Not Perf 3.2 - 5.2 [facility] Comment:Duplicate order, alr addis done in CMP AST Not Perf 0 - 30 [facility] Comment:Duplicate order, alr addis done in CMP ALT Not Perf 0 - 30 [facility] Comment:Duplicate order, alr addis done in CMP Alk Phos Not Perf 35 - 105 [facility] Comment:Duplicate order, alr addis done in CMP Total Bilirubin Not Perf 0.2 - 1.3 [facility] Comment:Duplicate order, alr addis done in CMP Bili, Direct 0.5(H) 0.0 - 0.3 mg/dL [facility] Blood specimen (specimen) Venous Draw / Unknown 04/20/2020 2:43 AM EDT 04/20/2020 3:32 AM EDT Narrative Resulting Agency Comment Spec In Lab Jos Sun MD CHEMISTRY ORDERABLES Performing Organization Address [facility]/ZIP Co de Phone Number [facility] [place] [address] * Phosphorus (04/20/2020 2:43 AM EDT) Phosphorus 3.6 2.5 - 4.5 mg/dL [facility] Blood specimen (specimen) Venous Draw / Unknown 04/20/2020 2:43 AM EDT 04/20/2020 3:32 AM EDT Narrative Resulting Agency Comment Spec In Lab Tiesha Morgan MD CHEMISTRY ORDERABLES [facility] [place] [address] * Magnesium (04/20/2020 2:43 AM EDT) Pathologist [facility] Magnesium 0.71 0.69 - 1.07 mmol/L [facility] Blood specimen (specimen) Venous Draw / Unknown 04/20/2020 2:43 AM EDT 04/20/2020 3:32 AM EDT Narrative Resulting Agency Comment Spec In Lab Tiesha Morgan MD CHEMISTRY ORDERABLES [facility] [place] [address] * (ABNORMAL) Comprehensive metabolic panel (non-fasting) (04/20/2020 2:43 AM EDT) [facility] Glucose Lvl 129 65 - 199 mg/dL [facility] Comment:Diabetes: >=200 mg/d L plus symptoms BUN 30(H) 8 - 18 mg/dL [facility] Creatinine 1.26(H) 0.70 - 1.20 mg/dL [facility] Sodium 134(L) 135 - 145 mmol/L [facility] Potassium 3.9 3.5 - 5.0 mmol/L [facility] Comment: Please note: ??Patients with WBC >100,000 may have falsely elevated Potassium levels. ??For accurate Potassium quantification in these patients send serum separator tube (gold top) for subsequent determinations. ??Contact the Clinical Chemistry Laboratory if there are any questions. Chloride 100 98 - 107 mmol/L [facility] CO2 20(L) 22 - 31 mmol/L [facility] Anion Gap 14 5 - 15 mmol/L [facility] Calcium 8.3(L) 8.5 - 10.5 mg/dL [facility] Total Protein 6.1 6.1 - 8.0 gm/dL [facility] Albumin 2.8(L) 3.2 - 5.2 gm/dL [facility] AST 18 0 - 30 unit/L [facility] ALT 22 0 - 30 unit/L [facility] Alk Phos 139(H) 35 - 105 unit/L [facility] Total Bilirubin 1.5(H) 0.2 - 1.3 mg/dL [facility] Estimated GFR 40(L) >=60 mL/min/1. 73 m?? [facility] Comment: The eGFR was calculated using the CKD-EPI equation. As with all creatinine based estimates of kidney function, eGFR values calculated with the CKD-EPI equation are not accurate in patients with acute kidney failure, extremes of body mass or the acutely ill. http://1000memories/[facility] eGFR 47(L) >=60 mL/min/1. 73 m?? [facility] Comment: The eGFR was calculated using the CKD-EPI equation. As with all creatinine based estimates of kidney function, eGFR values calculated with the CKD-EPI equation are not accurate in patients with acute kidney failure, extremes of body mass or the acutely ill. [email or web address]/[facility] Blood specimen (specimen) 04/20/2020 2:43 AM EDT 04/20/2020 3:12 AM EDT Narrative Resulting Agency Comment Spec In Lab Magdalene Lopez MD CHEMISTRY ORDERABLES [facility] [place] [address] * (ABNORMAL) Prothrombin Time (04/20/2020 2:43 AM EDT) PT 15.7(H) 9.4 - 12.5 sec [facility] INR 1.4 [facility] Comment: An [...] depending on clinical circumstances. Blood specimen (specimen) 04/20/2020 2:43 AM EDT 04/20/2020 3:12 AM EDT Narrative Resulting Agency Comment Spec In Lab Magdalene Lopez MD HEMATOLOGY ORDERABLE S Performing Organization Address [facility] Co de Phone Number [facility] [place] [address] * Troponin (04/20/2020 2:43 AM EDT) Troponin-T <0.01 0.00 - 0.00 ng/mL [facility] Comment: The 99th percentile for Troponin T is less than 0.01 ng/mL, any detectable cTnT concentration using this assay should be considered elevated. According to the third universal definition of myocardial infarction the following criteria with a clinical presentation consistent with acute myocardial ischemia meets the diagnosis for a myocardial infarction ([place]). Detection of a rise and/or fall of cTnT, with at least one value greater than the 99th percentile (> or = 0.01) and with at least one of the following ?? Symptoms of ischemia ?? New or presumed new significant EQ-vsirstm-B wave (ST-T) changes or new left bundle [...] additional sample may be indicated. Reference: Third [place] Definition of Myocardial Infarction. Journal of the [place] [employer] 2012;60:1581-98 Blood specimen (specimen) 04/20/2020 2:43 AM EDT 04/20/2020 3:12 AM EDT Narrative Resulting Agency Comment Spec In Lab Magadlene Lopez MD CHEMISTRY ORDERABLES Performing Organization Address [facility] Co de Phone Number [facility] [place] [address] * EKG 12 Lead (04/20/2020 2:33 AM EDT) Ventricular rate 168 BPM MUSE SYSTEM Atrial Rate 174 BPM MUSE SYSTEM QRS Duration 128 ms MUSE SYSTEM Q-T Interval 288 ms MUSE SYSTEM QTC Calculated (Bezet) 481 ms MUSE SYSTEM Calculated R [place] 82 degrees MUSE SYSTEM Calculated T [place] -18 degrees MUSE SYSTEM INTERPRETATION Atrial fibrillation with rapid ventricular response with premature ventricular or aberrantly conducted complexes Right bundle branch block T wave abnormality, consider inferior ischemia or digitalis effect Abnormal ECG When compared with ECG of 19-APR-2020 20:23, Atrial fibrillation has replaced Sinus rhythm Vent. rate has increased BY ??[address] now depressed in Anterolateral leads I personally reviewed the tracing and edited the fellows interpretation Confirmed by fellow Ren Quinn ([id number]) on 04/20/2020 11:47:57 AM Confirmed by Lisbeth Cain ([id number]) on 04/21/2020 7:47:13 PM MUSE SYSTEM 04/20/2020 2:33 AM EDT 04/21/2020 7:47 PM EDT Magdalene Lopez MD ECG ORDERABLES Performing Organization Address City/[facility]/ZIP Co de Phone Number MUSE SYSTEM * POCT Glucose (04/20/2020 12:36 AM EDT) [facility] POC Glucose 112 65 - 199 mg/dL [facility] Comment: Supplemental ranges: <140 mg/dL before meals <180 mg/dL all other times of the day Blood specimen (specimen) 04/20/2020 12:36 AM EDT 04/20/2020 12:36 AM EDT Magdalene Lopez MD POINT OF CARE TEST O RDERABLES [facility] [place] [address] * EKG 12 Lead (04/19/2020 8:23 PM EDT) Pathologist [facility] Ventricular rate 100 BPM MUSE SYSTEM Atrial Rate 100 BPM MUSE SYSTEM P-R Interval 156 ms MUSE SYSTEM QRS Duration 116 ms MUSE SYSTEM Q-T Interval 368 ms MUSE SYSTEM QTC Calculated (Bezet) 474 ms MUSE SYSTEM Calculated P [place] 59 degrees MUSE SYSTEM Calculated R [place] 26 degrees MUSE SYSTEM Calculated T [place] 2 degrees MUSE SYSTEM INTERPRETATION Normal sinus rhythm Right bundle branch block Abnormal ECG No previous ECGs available Confirmed by Lisbeth Cain ([email or web address]) on 04/21/2020 3:47:08 PM MUSE SYSTEM 04/19/2020 8:23 PM EDT 04/21/2020 3:47 PM EDT Magdalene Lopez MD ECG ORDERABLES MUSE SYSTEM * POCT Glucose (04/19/2020 7:50 PM EDT) POC Glucose 153 65 - 199 mg/dL [facility] Comment: Supplemental ranges: <140 mg/dL before meals <180 mg/dL all other times of the day Blood specimen (specimen) 04/19/2020 7:50 PM EDT 04/19/2020 7:50 PM EDT Magdalene Lopez MD POINT OF CARE TEST O RDERABLES Performing Organization Address [facility] Co de Phone Number [facility] [place] [address] * POCT Glucose (04/19/2020 5:58 PM EDT) POC Glucose 151 65 - 199 mg/dL [facility] Comment: Supplemental ranges: <140 mg/dL before meals <180 mg/dL all other times of the day Blood specimen (specimen) 04/19/2020 5:58 PM EDT 04/19/2020 5:58 PM EDT Magdalene Lopez MD POINT OF CARE TEST O RDERABLES Performing Organization Address [facility] Co de Phone Number [facility] [place] [address] * Request For 2nd Read CT Abdomen & Pelvis (04/19/2020 4:15 PM EDT) Anatomical Region Laterality Modality Abdomen, Pelvis SO Impressions 04/19/2020 4:27 PM EDT 1. ??Hydropic gallbladder with gallbladder wall thickening, layering cholelithiasis, pericholecystic fat stranding; findings strongly suggestive of acute cholecystitis. Clinical correlation. Thank you for letting us participate in the care of this patient. For questions regarding this report, please contact the number below. ? Electronically signed by: Harris Shepard [facility] ([phone]), at 04/19/2020 4:27 PM Narrative 04/19/2020 4:27 PM EDT EXAMINATION: ??REQUEST FOR 2ND READ CT ABDOMEN AND PELVIS CLINICAL HISTORY: ??cholecystitis, eval CBD as well; What Modality is the exam? CT Scan; Body Part (please add comments as necessary): abd/pelvis; Sending Institution [facility]; Date of exam [id number]; I believe a reinterpretation of this exam may alter care of Patient. Yes TECHNIQUE: Helical CT of the abdomen and pelvis was performed without contrast. COMPARISON: ??None FINDINGS: The absence of intravenous contrast limits the evaluation of solid viscera and vasculature. Lower chest: ??Normal. Liver: Normal. Bile ducts: Nondilated. Gallbladder: Distended/hydropic, measuring 5.5 cm across. Diffuse gallbladder wall thickening. Layering cholelithiasis.. Pericholecystic fat stranding. Pancreas: No pancreatic ductal dilatation or peripancreatic fluid. Spleen: Normal. Adrenals: Normal. Kidneys: No renal collecting system obstruction bilaterally Urinary Bladder: Normal. Vasculature: No aneurysm. Lymph Nodes: No enlarged lymph nodes. Bowel: Nondilated, no wall thickening. Peritoneum and mesentery: Pericholecystic fat stranding. No loculated collections. Abdominal wall: Small fat-containing periumbilical hernia. Reproductive organs: No adnexal masses Osseous structures: No suspicious lesions. Procedure Note Harris Shepard MD - 04/19/2020 EXAMINATION: REQUEST FOR 2ND READ CT ABDOMEN AND PELVIS CLINICAL HISTORY: cholecystitis, eval CBD as well; What Modality is theexam? CT Scan; Body Part (please add comments as necessary): abd/pelvis;Sending Institution [facility]; Date of exam [id number]; I believe a reinterpretation ofthis exam may alter care of Patient. Yes TECHNIQUE: Helical CT of the abdomen and pelvis was performed withoutcontrast. COMPARISON: None FINDINGS: The absence of intravenous contrast limits the evaluation of solid visceraand vasculature. Lower chest: Normal. Liver: Normal. Bile ducts: Nondilated. Gallbladder: Distended/hydropic, measuring 5.5 cm across. Diffusegallbladder wall thickening. Layering cholelithiasis.. Pericholecystic fatstranding. Pancreas: No pancreatic ductal dilatation or peripancreatic fluid. Spleen: Normal. Adrenals: Normal. Kidneys: No renal collecting system obstruction bilaterally Urinary Bladder: Normal. Vasculature: No aneurysm. Lymph Nodes: No enlarged lymph nodes. Bowel: Nondilated, no wall thickening. Peritoneum and mesentery: Pericholecystic fat stranding. No loculated collections. Abdominal wall: Small fat-containing periumbilical hernia. Reproductive organs: No adnexal masses Osseous structures: No suspicious lesions. IMPRESSION 1. Hydropic gallbladder with gallbladder wall thickening, layering cholelithiasis, pericholecystic fat stranding; findings stronglysuggestive of acute cholecystitis. Clinical correlation. Thank you for letting us participate in the care of this patient. Forquestions regarding this report, please contact the number below. Electronically signed by: Harris Shepard [facility]([phone]), at 04/19/2020 4:27 PM Magdalene Lopez MD IMG OUTSIDE INTERPRE TATION ORDERABLES * (ABNORMAL) Differential, Automated (04/19/2020 4:04 PM EDT) Neutrophils % 85.2 % [facility] Neutr Abs (ANC) 14.50(H) 1.70 - 6.10 x10(3)/mc L [facility] Lymphocytes % 7.8 % [facility] Lymphocytes Abs 1.3 0.9 - 3.2 x10(3)/[facility] Monocytes % 5.7 % [facility] Monocyte Abs 1.0(H) 0.3 - 0.9 x10(3)/[facility] Eosinophils % 0.2 % [facility] Eosinophils Abs 0.0 0.0 - 0.4 x10(3)/[facility] Basophils % 0.2 % [facility] Basophils Abs 0.0 0.0 - 0.1 x10(3)/[facility] Immature Gran % 0.90 % [facility] Comment: Immature granulocytes(IG's)percentage and absolute count will include metamyelocytes, myelocytes, and promyelocytes. Blood smears from CBCs yielding IG's will be scanned manually for concordance. If this scan disagrees with the automated IG or if promyelocytes are noted, a manual differential will be performed. Nanci Gran Abs 0.16(H) 0.00 - 0.04 x10(3)/[facility] Blood specimen (specimen) 04/19/2020 4:04 PM EDT 04/19/2020 4:30 PM EDT Narrative Resulting Agency Comment Spec In Lab Magdalene Lopez MD HEMATOLOGY ORDERABLE S [facility] [place] [address] * (ABNORMAL) Hemogram (04/19/2020 4:04 PM EDT) WBC 17.0(H) 4.0 - 9.5 x10(3)/[facility] RBC 4.07 4.00 - 5.21 x10(6)/[facility] Hemoglobin 11.2(L) 11.7 - 15.5 gm/dL [facility] Hematocrit 34.8(L) 35.7 - 45.8 % [facility] MCV 85.5 82.6 - 94.4 fL [facility] MCH 27.5 27.1 - 32.0 pg [facility] MCHC 32.2 31.7 - 35.0 gm/dL [facility] Platelets 220 145 - 357 x10(3)/[facility] LAB[facility] RDWSD 47.3(H) 37.0 - 46.0 [facility] RDWCV 15.1(H) 11.5 - 14.1 % [facility] MPV 11.3 7.6 - 12.9 [facility] nRBC % Auto 0.0 % [facility] nRBC Abs Auto 0.000 0.000 - 0.000 x10(3)/[facility] Blood specimen (specimen) 04/19/2020 4:04 PM EDT 04/19/2020 4:30 PM EDT Narrative Resulting Agency Comment Spec In Lab Magdalene Lopez MD HEMATOLOGY ORDERABLE S [facility] [place] [address] * (ABNORMAL) Prothrombin Time (04/19/2020 4:04 PM EDT) PT 16.9(H) 9.4 - 12.5 sec [facility] INR 1.5 [facility] Comment: An [...] depending on clinical circumstances. Blood specimen (specimen) 04/19/2020 4:04 PM EDT 04/19/2020 4:30 PM EDT Narrative Resulting Agency Comment Spec In Lab Magdalene Lopez MD HEMATOLOGY ORDERABLE S [facility] [place] [address] * (ABNORMAL) Comprehensive metabolic panel (non-fasting) (04/19/2020 4:04 PM EDT) Glucose Lvl 146 65 - 199 mg/dL [facility] Comment:Diabetes: >=200 mg/d L plus symptoms BUN 26(H) 8 - 18 mg/dL [facility] Creatinine 1.37(H) 0.70 - 1.20 mg/dL [facility] Sodium 135 135 - 145 mmol/L [facility] Potassium 4.1 3.5 - 5.0 mmol/L [facility] Comment: Please note: ??Patients with WBC >100,000 may have falsely elevated Potassium levels. ??For accurate Potassium quantification in these patients send serum separator tube (gold top) for subsequent determinations. ??Contact the Clinical Chemistry Laboratory if there are any questions. Chloride 97(L) 98 - 107 mmol/L [facility] CO2 20(L) 22 - 31 mmol/L [facility] Anion Gap 18(H) 5 - 15 mmol/L [facility] Calcium 9.1 8.5 - 10.5 mg/dL [facility] Total Protein 7.1 6.1 - 8.0 gm/dL [facility] Albumin 3.6 3.2 - 5.2 gm/dL [facility] AST 28 0 - 30 unit/L [facility] ALT 30 0 - 30 unit/L [facility] Alk Phos 148(H) 35 - 105 unit/L [facility] Total Bilirubin 2.1(H) 0.2 - 1.3 mg/dL [facility] Estimated GFR 37(L) >=60 mL/min/1. 73 m?? [facility] Comment: The eGFR was calculated using the CKD-EPI equation. As with all creatinine based estimates of kidney function, eGFR values calculated with the CKD-EPI equation are not accurate in patients with acute kidney failure, extremes of body mass or the acutely ill. http://1000memories/[email or web address] eGFR 42(L) >=60 mL/min/1. 73 m?? [facility] Comment: The eGFR was calculated using the CKD-EPI equation. As with all creatinine based estimates of kidney function, eGFR values calculated with the CKD-EPI equation are not accurate in patients with acute kidney failure, extremes of body mass or the acutely ill. http://1000memories/[facility]nk[facility] Blood specimen (specimen) 04/19/2020 4:04 PM EDT 04/19/2020 4:30 PM EDT Narrative Resulting Agency Comment Spec In Lab Magdalene Lopez MD CHEMISTRY ORDERABLES Performing Organization Address City/[facility]/ZIP Co de Phone Number [facility] [place] [address] * ABORH Recheck Status (04/19/2020 3:57 PM EDT) ABORH Recheck Order Order Placed [facility] ABORH Type Recheck Complete [facility] Blood specimen (specimen) 04/19/2020 3:57 PM EDT 04/19/2020 4:23 PM EDT Narrative Resulting Agency Comment Spec In Lab Magdalene Lopez MD BLOOD BANK LAB ORDER JAMIE [facility] [place] [address] * Antibody screen (04/19/2020 3:57 PM EDT) Ab Screen Interp Negative [facility] Expires at [id number] on: 04/22/2020 [facility] Blood specimen (specimen) 04/19/2020 3:57 PM EDT 04/19/2020 4:23 PM EDT Narrative Resulting Agency Comment Spec In Lab Magdalene Lopez MD BLOOD BANK LAB ORDER JAMIE Performing Organization Address City/[facility]/ZIP Co de Phone Number [facility] [place] [address] * ABO/Rh Typing (04/19/2020 3:57 PM EDT) ABORH Type O Pos 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 Unspecified cardiovascular disease Aortic valve stenosis, etiology of cardiac valve disease unspecified Hypertension, unspecified type Non-ST elevation myocardial infarction (NSTEMI) Acute myocardial infarction, subendocardial infarction, episode of care unspecified Cholecystitis Cholecystitis, unspecified Infection of cholecystostomy drain, initial encounter 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, unspecified whether melt superintendant insulin use Cholecystitis Cholecystitis, unspecified Atrial fibrillation--- paroxysmal Atrial fibrillation Aortic stenosis - moderate Aortic valve disorders Cholecystitis Cholecystitis, unspecified Infection of cholecystostomy drain, initial encounter 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 When ordered for pain, acetaminophen should be given even when other ordered pain medications are indicated. , Routine Given 04/20/2020 6:46 AM EDT 1,000 mg Given 04/20/2020 12:32 AM EDT 1,000 mg Given 04/19/2020 5:58 PM EDT 1,000 mg acetaminophen (Tylenol) tablet 1,000 mg 1,000 mg, Oral, EVERY 8 HOURS, First dose (after last modification) on Tu04/20/20 at 1500, Until Discontinued, Maximum dose of acetaminophen is 4000 mg from all sources in 24 hours. When ordered for pain, acetaminophen should be given even when other ordered pain medications are indicated. , Routine Given 05/07/2020 8:49 PM EDT 1,000 mg Given 05/07/2020 11:45 AM EDT 1,000 mg Given 05/07/2020 4:12 AM EDT 1,000 mg AMIOdarone (Cordarone; Pacerone) tablet 200 mg 200 mg, Oral, 2 TIMES DAILY, First dose on Noreen 04/22/20 at 0900, Until Discontinued, Routine Given 05/08/2020 8:04 AM EDT 200 mg Given 05/07/2020 8:49 PM EDT 200 mg Given 05/07/2020 8:10 AM EDT 200 mg amLODIPine (Norvasc) tablet 10 mg 10 mg, Oral, NIGHTLY, First dose (after last modification) on Sun04/25/20 at 2100, Until Discontinued, Routine Given 04/27/2020 8:55 PM EDT 10 mg Given 04/26/2020 8:21 PM EDT 10 mg Given 04/25/2020 9:13 PM EDT 10 mg amLODIPine (Norvasc) tablet 5 mg 5 mg, Oral, NIGHTLY, First dose on Sun04/24/20 at 2100, Until Discontinued, Routine Given 04/24/2020 8:26 PM EDT 5 mg amoxicillin-clavulanate (Augmentin) 875-125 mg per tablet 1 tablet 1 tablet, Oral, 2 TIMES DAILY, First dose on Sun04/30/20 at 2100, Until Discontinued, Routine, Indication for (Active or Suspected): GI/Intra-abdominal Given 05/08/2020 8:05 AM EDT 1 tablet Given 05/07/2020 8:49 PM EDT 1 tablet Given 05/07/2020 8:11 AM EDT 1 tablet apixaban (Eliquis) tablet 5 mg 5 mg, Oral, 2 TIMES DAILY, First dose on Sun04/26/20 at 2100, Until Discontinued, Anticoagulant, Routine, Restricted anticoagulant, choose the most appropriate response: Approved indication of non-valvular atrial fibrillation Given 04/27/2020 8:47 AM EDT 5 mg Given 04/26/2020 8:21 PM EDT 5 mg apixaban (Eliquis) tablet 5 mg 5 mg, Oral, 2 TIMES DAILY, First dose on Sun04/29/20 at 1000, Until Discontinued, Anticoagulant, Routine, Restricted anticoagulant, choose the most appropriate response: Approved indication of non-valvular atrial fibrillation Given 05/02/2020 8:46 AM EDT 5 mg Given 05/01/2020 8:19 PM EDT 5 mg Given 05/01/2020 8:22 AM EDT 5 mg aspirin chewable tablet 324 mg 324 mg, Oral, ONCE, 1 dose, On Sun04/20/20 at 1945, Routine Given 04/20/2020 7:51 PM EDT 324 mg aspirin chewable tablet 81 mg 81 mg, Oral, DAILY, First dose on Sun04/21/20 at 1000, Until Discontinued, Routine Given 05/03/2020 9:09 AM EDT 81 mg Given 05/02/2020 8:46 AM EDT 81 mg Given 05/01/2020 8:22 AM EDT 81 mg aspirin chewable tablet 81 mg 81 mg, Oral, DAILY, First dose on Sun05/06/20 at 1315, Until Discontinued, Routine Given 05/08/2020 8:04 AM EDT 81 mg Given 05/07/2020 8:10 AM EDT 81 mg Given 05/06/2020 3:05 PM EDT 81 mg bisacodyl EC (Dulcolax) tablet 10 mg 10 mg, Oral, DAILY PRN, Starting on Sun04/20/20 at 0742, Until 05/08/20 at 1535, Constipation, DO NOT CRUSH OR OPEN, Routine chlorthalidone (Hygroten) tablet 25 mg 25 mg, Oral, DAILY, First dose on Sun04/26/20 at 1115, Until Discontinued, Routine Given 04/28/2020 8:33 AM EDT 25 mg Given 04/27/2020 8:48 AM EDT 25 mg Given 04/26/2020 11:08 AM EDT 25 mg ciprofloxacin (Cipro) tablet 500 mg 500 mg, Oral, 2 TIMES DAILY, First dose on Noreen 04/29/20 at 1900, Until Discontinued, Routine, Indication for (Active or Suspected): GI/Intra-abdominal Given 04/30/2020 6:50 AM EDT 500 mg Given 04/29/2020 8:24 PM EDT 500 mg clopidogreL (Plavix) tablet 75 mg 75 mg, Oral, DAILY, First dose on Noreen 04/22/20 at 0900, Until Discontinued, Routine Given 05/08/2020 8:04 AM EDT 75 mg Given 05/07/2020 8:11 AM EDT 75 mg Given 05/06/2020 9:27 AM EDT 75 mg dextrose 10% infusion 250 mL, at 1,000 mL/hr, Intravenous, EVERY 30 MIN PRN, Starting on Sun04/19/20 at 1612, Until 05/08/20 at 1535, For BG 50-70 mg/dL: Oral treatment preferred:?? [...] mcg/mL multi-dose injection ONCE PRN, Starting on Sun04/21/20 at 1553, Until Sun04/23/20 at 1041, Intra-Operative (Intra-Procedure), Routine Given 04/22/2020 3:56 PM EDT 50 mcg Given 04/21/2020 3:53 PM EDT 25 mcg fentaNYL 50 mcg/mL multi-dose injection 25-50 mcg, Intravenous, EVERY 3 MIN PRN, Starting on Sun04/28/20 at 0909, Until Sun04/28/20 at 1012, Pain, per unit protocol, - Start dose [...] and verbal order., Angio/IR (Intra-Procedure), Routine Given 04/28/2020 10:03 AM EDT 50 mcg Given 04/28/2020 9:52 AM EDT 50 mcg Given 04/28/2020 9:45 AM EDT 50 mcg furosemide (LASIX) 10 mg/mL injection 1 dose, Starting on Sun04/21/20 at 1421, Until Sun04/21/20 at 1421, Sarah V[place]: cabinet override furosemide (LASIX) injection 40 mg 40 mg, Intravenous, ONCE, 1 dose, On Sun04/21/20 at 1515 Given 04/21/2020 2:21 PM EDT 40 mg furosemide (LASIX) injection 40 mg 40 mg, Intravenous, ONCE, 1 dose, On Noreen 04/22/20 at 1015 Given 04/22/2020 11:37 AM EDT 40 mg furosemide (Lasix) tablet 20 mg 20 mg, Oral, DAILY, First dose on Noreen 04/29/20 at 0900, Until Discontinued, Routine Given 04/29/2020 8:10 AM EDT 20 mg glucagon (human recombinant) injection SolR 1 mg 1 mg, Intramuscular, EVERY 30 MIN PRN, Starting on 04/19/20 at 1612, Until 05/08/20 at 1535, Low blood sugar, For BG 50-70 mg/dL: [...] Buccal, EVERY 30 MIN PRN, Starting on 04/19/20 at 1612, Until 05/08/20 at 1535, Low blood sugar, For BG 50-70 mg/dL: [...] of tube = 37.5 grams., Routine heparin (Porcine) subcutaneous injection 5,000 Units 5,000 Units, Subcutaneous, EVERY 8 HOURS SCHEDULED, First dose on Sun04/19/20 at 1700, Until Discontinued, Routine Given 04/26/2020 5:25 PM EDT 5,000 Units Given 04/26/2020 11:08 AM EDT 5,000 Units Given 04/26/2020 1:57 AM EDT 5,000 Units insulin glargine VIAL injection 25 Units 25 Units, Subcutaneous, NIGHTLY, First dose on Sun04/19/20 at 2100, Until Discontinued, Routine Given 05/07/2020 8:50 PM EDT 25 Units Given 05/06/2020 8:57 PM EDT 25 Units Given 05/05/2020 9:57 PM EDT 25 Units insulin lispro (HumaLOG) VIAL injection 1-4 Units 1-4 Units, Subcutaneous, EVERY 4 HOURS SCHEDULED, First dose on Sun04/19/20 at 1700, Until Discontinued, CORRECTION BOLUS [1-4 [...] > 240 in 2 hours., Routine Given 05/07/2020 11:44 AM EDT 1 Units Given 05/06/2020 11:44 PM EDT 1 Units Given 05/06/2020 8:51 PM EDT 1 Units insulin lispro (HumaLOG) VIAL injection 1-4 Units 1-4 Units, Subcutaneous, 4 TIMES DAILY BEFORE MEALS & NIGHTLY, First dose (after last modification) on Sun05/07/20 at 1630, Until Discontinued, CORRECTION BOLUS [1-4 Units] Sensitive [...] > 240 in 2 hours., Routine Given 05/08/2020 11:25 AM EDT 1 Units Given 05/07/2020 4:53 PM EDT 1 Units iohexoL (OMNIPAQUE) 350 mg/mL solution 0-200 mL 0-200 mL, Intravenous, ONCE PRN, 1 dose, Starting on Sun04/27/20 at 1533, Until Sun04/27/20 at 1533, Per Protocol, Warning Vesicant/Irritant Medication , Radiology Contrast, Routine Given 04/27/2020 3:33 PM EDT 96 mLs iohexoL (OMNIPAQUE) 350 mg/mL solution 0-50 mL 0-50 mL, Oral, ONCE PRN, 1 dose, Starting on Sun04/27/20 at 1533, Until Sun04/27/20 at 1533, Per Protocol, Warning Vesicant/Irritant Medication , Radiology Contrast, Routine Given 04/27/2020 3:33 PM EDT 50 mLs iohexol (OMNIPAQUE) radiology oral prep (50 mL of oral contrast) 240 mL, Oral, ONCE, 1 dose, On Sun04/27/20 at 1230, 8 ounce cup = 240 mL of contrast 3 hours before scan as tolerated. The patient should not eat food or drink any other liquids during the entire period in which they are drinking the contrast. Mix 1 bottle (50 mL) of Omnipaque 350 with 1 liter (1,000 mL) non-carbonated beverage (preferably water). Close cover and shake vigorously and then refrigerate, if desired. Dispose of any excess preparation in a sink. Properly dispose of container., Routine Given 04/27/2020 12:30 PM EDT 240 mLs iohexol (OMNIPAQUE) radiology oral prep (50 mL of oral contrast) 240 mL, Oral, ONCE, 1 dose, On Sun04/27/20 at 1300, 8 ounce cup = 240 mL of contrast 2 hours before scan as tolerated. The patient should not eat food or drink any other liquids during the entire period in which they are drinking the contrast. Mix 1 bottle (50 mL) of Omnipaque 350 with 1 liter (1,000 mL) non-carbonated beverage (preferably water). Close cover and shake vigorously and then refrigerate, if desired. Dispose of any excess preparation in a sink. Properly dispose of container., Routine Given 04/27/2020 1:30 PM EDT 240 mLs iohexol (OMNIPAQUE) radiology oral prep (50 mL of oral contrast) 240 mL, Oral, ONCE, 1 dose, On Sun04/27/20 at 1400, 8 ounce cup = 240 mL of contrast 1 hours before scan as tolerated. The patient should not eat food or drink any other liquids during the entire period in which they are drinking the contrast. Mix 1 bottle (50 mL) of Omnipaque 350 with 1 liter (1,000 mL) non-carbonated beverage (preferably water). Close cover and shake vigorously and then refrigerate, if desired. Dispose of any excess preparation in a sink. Properly dispose of container., Routine Given 04/27/2020 2:00 PM EDT 240 mLs iohexol (OMNIPAQUE) radiology oral prep (50 mL of oral contrast) 240 mL, Oral, ONCE, 1 dose, On Sun04/27/20 at 1430, 8 ounce cup = 240 mL of contrast 20 minutes before scan as tolerated. The patient should not eat food or drink any other liquids during the entire period in which they are drinking the contrast. Mix 1 bottle (50 mL) of Omnipaque 350 with 1 liter (1,000 mL) non-carbonated beverage (preferably water). Close cover and shake vigorously and then refrigerate, if desired. Dispose of any excess preparation in a sink. Properly dispose of container., Routine Given 04/27/2020 2:30 PM EDT 240 mLs ipratropium-albuteroL (DUONEB) 0.5 mg-3 mg(2.5 mg base)/3 mL nebulizer solution 3 mL 3 mL, Nebulization, 4 TIMES DAILY PRN, Starting on Sun04/21/20 at 0403, Until Sun04/28/20 at 1658, Wheezing, Routine Given 04/21/2020 2:34 PM EDT 3 mLs Given 04/21/2020 4:32 AM EDT 3 mLs labetalol (NORMODYNE,TRANDATE) injection 10 mg 10 mg, Intravenous, EVERY 2 HOURS PRN, Starting on 04/24/20 at 0852, Until 04/24/20 at 1614, High Blood Pressure, Routine Given 04/24/2020 12: 13 PM EDT 10 mg labetalol (NORMODYNE,TRANDATE) injection 10-20 mg 10-20 mg, Intravenous, EVERY 2 HOURS PRN, Starting on Tu04/20/20 at 2010, Until Sun04/21/20 at 1447, High Blood Pressure, Give for SBP > 180. May repeat for 20mg total if inadequate response after 30 min, Routine Given 04/21/2020 2:14 PM EDT 20 mg Given 04/21/2020 4:31 AM EDT 10 mg Given 04/21/2020 3:36 AM EDT 10 mg labetalol (NORMODYNE,TRANDATE) injection 10-20 mg 10-20 mg, Intravenous, EVERY 2 HOURS PRN, Starting on Sun04/21/20 at 1445, Until Sun04/23/20 at 1041, High Blood Pressure, Give for SBP > 170. May repeat for 20mg total if inadequate response after 30 min, Routine Given 04/22/2020 9:45 PM EDT 10 mg Given 04/22/2020 5:11 PM EDT 20 mg Given 04/22/2020 3:45 PM EDT 10 mg labetalol (NORMODYNE,TRANDATE) injection 20 mg 20 mg, Intravenous, EVERY 2 HOURS PRN, Starting on 04/24/20 at 1613, Until 05/08/20 at 1535, High Blood Pressure, Routine Given 04/25/2020 10: 22 PM EDT 20 mg Given 04/25/2020 4:35 PM EDT 20 mg Given 04/24/2020 11:43 PM EDT 20 mg lactated Ringers 250 mL IV bolus at 125 mL/hr, Intravenous, ONCE, 1 dose, On Noreen 04/29/20 at 1000 New Bag 04/29/2020 10:03 AM EDT 12 5 mL/hr lactated Ringers 500 mL IV bolus at 125 mL/hr, Intravenous, ONCE, 1 dose, On Sun04/30/20 at 1030 New Bag 04/30/2020 10:21 AM EDT 12 5 mL/hr lidocaine (XYLOCAINE) 10 mg/mL (1 %) injection 10 mg 10 mg, Subcutaneous, ONCE, 1 dose, On 04/28/20 at 1000, For use in Interventional Radiology (IR) only for procedure with direct provider supervision and verbal order., Angio/IR (Intra-Procedure), Routine Given 04/28/2020 9:55 AM EDT 10 mg lidocaine (XYLOCAINE) 10 mg/mL (1 %) injection 3 mg 3 mg (0.3 mL), Subcutaneous, ONCE PRN, 1 dose, Starting on 05/02/20 at 1050, Until 05/08/20 at 1535, for discomfort with PIV insertion, Routine losartan (Cozaar) tablet 100 mg 100 mg, Oral, DAILY, First dose (after last modification) on 04/24/20 at 0900, Until Discontinued, Routine Given 04/29/2020 8:10 AM EDT 100 mg Given 04/28/2020 8:34 AM EDT 100 mg Given 04/27/2020 8:46 AM EDT 100 mg losartan (Cozaar) tablet 25 mg 25 mg, Oral, DAILY, First dose on 05/01/20 at 1100, Until Discontinued, Routine Given 05/08/2020 8:04 AM EDT 25 mg Given 05/07/2020 8:10 AM EDT 25 mg Given 05/06/2020 9:27 AM EDT 25 mg losartan (Cozaar) tablet 50 mg 50 mg, Oral, DAILY, First dose on Noreen 04/22/20 at 1015, Until Discontinued, Routine Given 04/23/2020 8:32 AM EDT 50 mg Given 04/22/2020 9:44 AM EDT 50 mg losartan (Cozaar) tablet 50 mg 50 mg, Oral, ONCE, 1 dose, On Sun04/23/20 at 1130, Routine Given 04/23/2020 11:29 AM EDT 50 mg magnesium sulfate 2 g in sterile water 50 mL 2 g, Intravenous, ONCE, 1 dose, On Sun04/20/20 at 0545, Administer over 120 Minutes New Bag 04/20/2020 6:45 AM EDT 2 g 25 mL/hr magnesium sulfate 2 g in sterile water 50 mL 2 g, Intravenous, ONCE, 1 dose, On Sun04/21/20 at 2145, Administer over 120 Minutes Rate/Dose Verify 04/21/2020 10:00 PM EDT 25 mL/hr New Bag 04/21/2020 9:05 PM EDT 2 g 25 mL/hr magnesium sulfate 2 g in sterile water 50 mL 2 g, Intravenous, ONCE, 1 dose, On Sun04/25/20 at 0830, Administer over 120 Minutes New Bag 04/25/2020 9:10 AM EDT 2 g 25 mL/hr magnesium sulfate 2 g in sterile water 50 mL 2 g, Intravenous, ONCE, 1 dose, On Noreen 04/29/20 at 1545, Administer over 120 Minutes New Bag 04/29/2020 4:06 PM EDT 2 g 25 mL/hr magnesium sulfate 2 g in sterile water 50 mL 2 g, Intravenous, ONCE, 1 dose, On Sun05/03/20 at 1315, Administer over 120 Minutes New Bag 05/03/2020 12:51 PM EDT 2 g 25 mL/hr melatonin tablet 6 mg 6 mg, Oral, NIGHTLY, First dose on Sun04/30/20 at 2100, Until Discontinued, Routine Given 05/07/2020 8:49 PM EDT 6 mg Given 05/06/2020 8:50 PM EDT 6 mg Given 05/05/2020 8:23 PM EDT 6 mg metoprolol (LOPRESSOR) injection 2.5 mg 2.5 mg, Intravenous, ONCE, 1 dose, On Sun04/20/20 at 0530 Given 04/20/2020 4:49 AM EDT 2.5 mg metoprolol succinate XL (Toprol-XL) tablet 300 mg 300 mg, Oral, NIGHTLY, First dose on Sun04/24/20 at 2100, Until Discontinued, DO NOT CRUSH OR OPEN, Routine Given 05/07/2020 8:49 PM EDT 300 mg Given 05/06/2020 8:49 PM EDT 300 mg Given 05/05/2020 8:22 PM EDT 300 mg metoprolol tartrate (Lopressor) tablet 12.5 mg 12.5 mg, Oral, ONCE, 1 dose, On Sun04/21/20 at 0115, Routine Given 04/21/2020 1:08 AM EDT 12.5 mg metoprolol tartrate (Lopressor) tablet 25 mg 25 mg, Oral, ONCE, 1 dose, On Sun04/20/20 at 0415, Routine Given 04/20/2020 3:46 AM EDT 25 mg metoprolol tartrate (Lopressor) tablet 25 mg 25 mg, Oral, EVERY 8 HOURS SCHEDULED, First dose on Sun04/20/20 at 0700, Until Discontinued, Hold for HR<60 or SBP<90, Routine Given 04/20/2020 7:38 AM EDT 25 mg metoprolol tartrate (Lopressor) tablet 25 mg 25 mg, Oral, ONCE, 1 dose, On Sun04/20/20 at 1315, Routine Given 04/20/2020 12:54 PM EDT 25 mg metoprolol tartrate (Lopressor) tablet 25 mg 25 mg, Oral, ONCE, 1 dose, On Sun04/20/20 at 1530, Hold for HR<60 or SBP<90, Routine Given 04/20/2020 2:43 PM EDT 2 5 mg metoprolol tartrate (Lopressor) tablet 25 mg 25 mg, Oral, ONCE, 1 dose, On Sun04/21/20 at 2145, Routine Given 04/21/2020 8:58 PM EDT 25 mg metoprolol tartrate (Lopressor) tablet 37.5 mg 37.5 mg, Oral, EVERY 6 HOURS SCHEDULED, First dose (after last modification) on Sun04/20/20 at 1830, Until Discontinued, Hold for HR<60 or SBP<90, Routine Given 04/20/2020 11:49 PM EDT 37.5 mg Given 04/20/2020 7:24 PM EDT 37.5 mg metoprolol tartrate (Lopressor) tablet 50 mg 50 mg, Oral, EVERY 6 HOURS SCHEDULED, First dose (after last modification) on Sun04/21/20 at 0600, Until Discontinued, Hold for HR<60 or SBP<90, Routine Given 04/21/2020 8:14 PM EDT 50 mg Given 04/21/2020 11:18 AM EDT 50 mg Given 04/21/2020 5:26 AM EDT 50 mg metoprolol tartrate (Lopressor) tablet 75 mg 75 mg, Oral, EVERY 6 HOURS SCHEDULED, First dose (after last modification) on Sun04/22/20 at 0000, Until Discontinued, Hold for HR<60 or SBP<90, Routine Given 04/24/2020 5:00 AM EDT 75 mg Given 04/24/2020 12:12 AM EDT 75 mg Given 04/23/2020 5:39 PM EDT 75 mg metroNIDAZOLE (Flagyl) tablet 500 mg 500 mg, Oral, 3 TIMES DAILY, First dose on Sun04/29/20 at 1600, Until Discontinued, Routine, Indication for (Active or Suspected): Anaerobic infection-GI/Intrabdominal Given 04/30/2020 10:06 AM EDT 500 mg Given 04/29/2020 8:24 PM EDT 500 mg Given 04/29/2020 4:06 PM EDT 500 mg midazolam (PF) (VERSED) multi-dose injection 0.5-1 mg 0.5-1 mg, Intravenous, EVERY 3 MIN PRN, Starting on Sun04/28/20 at 0909, Until Sun04/28/20 at 1012, Sleep, - Start dose; 1 mg (Reduce dose to 0.5 mg if history of sedation sensitivity). - Titration dose: 0.5 mg - 1 mg (based on patient response) every 3 minutes PRN to obtain RASS score of -3. Maximum dose: 1 mg per dose, 5 mg/hour. For use in Interventional Radiology (IR) only for procedural sedation with direct provider supervision and verbal order., Angio/IR (Intra-Procedure), Routine Given 04/28/2020 10:03 AM EDT 1 mg Given 04/28/2020 9:53 AM EDT 1 mg Given 04/28/2020 9:45 AM EDT 1 mg nitroGLYcerin 50 mg in dextrose 5% 250 mL infusion CONTINUOUS PRN, Starting on Sun04/21/20 at 1707, Until Sun04/23/20 at 1041, Cath (Intra-Procedure), Routine Rate/Dose Change 04/22/2020 12:18 AM EDT 20 mcg/min 6 mL/hr Rate/Dose Change 04/22/2020 12:08 AM EDT 40 mcg/min 12 mL/ hr Rate/Dose Verify 04/22/2020 12:00 AM EDT 18 mL/ hr ondansetron (ZOFRAN) injection 4-8 mg 4-8 mg, Intravenous, EVERY 8 HOURS PRN, Starting on Sun04/19/20 at 1612, Until Noreen 04/29/20 at 1457, Nausea, Start with 4mg and if ineffective in 30 minutes, give an additional 4mg If multiple antiemetics are ordered, give ondansetron first. Given 04/21/2020 2:12 PM EDT 4 mg oxyCODONE (Roxicodone) tablet 5 mg 5 mg, Oral, EVERY 4 HOURS PRN, Starting on Sun04/19/20 at 1612, Until 05/08/20 at 1535, Pain, Routine Given 04/29/2020 11:16 PM EDT 5 mg Given 04/29/2020 7:05 PM EDT 5 mg Given 04/29/2020 2:49 PM EDT 5 mg pantoprazole (PROTONIX) injection 40 mg 40 mg, Intravenous, DAILY, First dose on Noreen 04/22/20 at 1045, Until Discontinued Given 04/23/2020 8:32 AM EDT 40 mg Given 04/22/2020 10:43 AM EDT 40 mg pantoprazole (PROTONIX) injection 40 mg 40 mg, Intravenous, 2 TIMES DAILY, First dose on 05/02/20 at 1145, Until Discontinued Given 05/03/2020 9:23 AM EDT 40 mg Given 05/02/2020 8:29 PM EDT 40 mg Given 05/02/2020 11:40 AM EDT 40 mg pantoprazole EC (Protonix) tablet 40 mg 40 mg, Oral, DAILY, First dose on 04/24/20 at 0900, Until Discontinued, DO NOT CRUSH OR OPEN Given 05/02/2020 8:46 AM EDT 40 mg Given 05/01/2020 8:23 AM EDT 40 mg Given 04/30/2020 10:06 AM EDT 40 mg pantoprazole EC (Protonix) tablet 40 mg 40 mg, Oral, 2 TIMES DAILY, First dose on 05/03/20 at 2100, Until Discontinued, DO NOT CRUSH OR OPEN Given 05/08/2020 8:05 AM EDT 40 mg Given 05/07/2020 8:49 PM EDT 40 mg Given 05/07/2020 8:11 AM EDT 40 mg PHENYLephrine (ARDEN-SYNEPHRINE) 20 mg in sodium chloride 250 mL (standard ADULT & Pedi greater than 20kg) infusion 25 mcg/min (18.75 mL/hr, rounded to 18.8 mL/hr), Intravenous, CONTINUOUS, Starting on Sun04/20/20 at 1000, Until Sun04/20/20 at 1101, Per the Vasop[place], [place] [address]: A central line must be placed for the administration of vasopressor infusions lasting longer than 8 hours. Warning Vesicant/Irritant Medication New Bag 04/20/2020 9:02 AM EDT 25 mcg/min 18.8 mL/hr PHENYLephrine (ARDEN-SYNEPHRINE) 20 mg in sodium chloride 250 mL (standard ADULT & Pedi greater than 20kg) infusion 0-180 mcg/min (0-135 mL/hr), Intravenous, CONTINUOUS, Starting on Sun04/20/20 at 1200, Until Noreen 04/22/20 at 0816, Titrate to SBP>90bpm. Start at 50 mcg/min and adjust dose by 25 mcg/min every 10 minutes. Do not exceed 180 mcg/min. Warning Vesicant/Irritant Medication Rate/Dose Change 04/20/2020 11:59 AM EDT 10 mcg/min 7.5 mL/hr Rate/Dose Change 04/20/2020 11:28 AM EDT 20 mcg/min 15 mL/ hr Continued Bag 04/20/2020 11:21 AM EDT 30 mcg/min 22.5 mL/h r piperacillin-tazobactam (ZOSYN) 3.375 g vial attach to sodium chloride 0.9% 50 mL Mini-Bag Plus 3.375 g, Intravenous, EVERY 8 HOURS, First dose on Sun04/19/20 at 1700, Until Discontinued, Administer over 4 Hours, Warning Vesicant/Irritant Medication Do not administer or Y-site with lactated ringers., Indication for (Active or Suspected): GI/Intra-abdominal New Bag 04/26/2020 8:31 AM EDT 3.375 g 12.5 mL/hr New Bag 04/26/2020 1:57 AM EDT 3.375 g 12.5 mL/hr New Bag 04/25/2020 4:44 PM EDT 3.375 g 12.5 mL/hr piperacillin-tazobactam (ZOSYN) 3.375 g vial attach to sodium chloride 0.9% 50 mL Mini-Bag Plus 3.375 g, Intravenous, EVERY 8 HOURS, First dose on Sun04/28/20 at 0800, Until Discontinued, Administer over 4 Hours, Warning Vesicant/Irritant Medication Do not administer or Y-site with lactated ringers., Indication for (Active or Suspected): GI/Intra-abdominal New Bag 04/29/2020 12:13 PM EDT 3.375 g 12.5 mL/hr New Bag 04/29/2020 4:28 AM EDT 3.375 g 12.5 mL/hr New Bag 04/28/2020 8:55 PM EDT 3.375 g 12.5 mL/hr polyethylene glycoL (Miralax) packet 17 g 17 g, Oral, DAILY, First dose on Sun04/20/20 at 0830, Until Discontinued, Hold for loose stools please! Thanks!, Routine Given 05/05/2020 9:32 AM EDT 17 g potassium bicarbonate (Effer-K) effervescent tablet 40 mEq 40 mEq, Oral, ONCE, 1 dose, On 04/24/20 at 0645, DO NOT GIVE UNDILUTED MEDICATION TO PATIENT. Dissolve tablet completely in 3-4 ounces of cold water or juice. May further dilute if adverse GI effects occur., Routine Given 04/24/2020 6:08 AM EDT 40 mEq potassium chloride 10 mEq in 100 mL 10 mEq, Intravenous, EVERY 1 HOUR PRN, Starting on Noreen 04/22/20 at 0610, Until Sun04/23/20 at 1041, Administer over 60 Minutes, hypokalemia, Administer 4 times 10 meq/100 mL bags, each over 30-60 minutes for serum potassium (mMol/L) of 3.3 - 3.8 See instructions for Potassium Protocol in online policies. New Bag 04/23/2020 6:09 AM EDT 10 mEq 100 mL/h r New Bag 04/23/2020 5:04 AM EDT 10 mEq 100 mL/hr New Bag 04/23/2020 3:58 AM EDT 10 mEq 100 mL/hr potassium chloride 10 mEq in 100 mL 10 mEq, Intravenous, EVERY 1 HOUR PRN, Starting on Noreen 04/22/20 at 0610, Until Sun04/23/20 at 1041, Administer over 60 Minutes, hypokalemia, Administer Administer 6 times 10 meq/100 mL bags, each over 30-60 minutes for serum potassium (mMol/L) of 2.8 - 3.2 See instructions for Potassium Protocol in online policies. New Bag 04/22/2020 6:24 AM EDT 10 mEq 100 mL/hr potassium chloride ER (K-Dur/Klor-Con) tablet 40 mEq 40 mEq, Oral, ONCE, 1 dose, On Sun04/22/20 at 1215, 20 mEq tablet may be dissolved in water for administration, Routine Given 04/22/2020 11:27 AM EDT 40 mEq potassium chloride ER (K-Dur/Klor-Con) tablet 40 mEq 40 mEq, Oral, ONCE, 1 dose, On Sun04/25/20 at 0715, 20 mEq tablet may be dissolved in water for administration, Routine Given 04/25/2020 9:00 AM EDT 40 mEq potassium chloride ER (K-Dur/Klor-Con) tablet 40 mEq 40 mEq, Oral, ONCE, 1 dose, On Sun04/26/20 at 0745, 20 mEq tablet may be dissolved in water for administration, Routine Given 04/26/2020 7:30 AM EDT 40 mEq potassium chloride ER (K-Dur/Klor-Con) tablet 40 mEq 40 mEq, Oral, ONCE, 1 dose, On Sun04/27/20 at 1430, 20 mEq tablet may be dissolved in water for administration, Routine Given 04/27/2020 2:29 PM EDT 40 mEq potassium chloride ER (K-Dur/Klor-Con) tablet 40 mEq 40 mEq, Oral, ONCE, 1 dose, On Sun04/28/20 at 0945, 20 mEq tablet may be dissolved in water for administration, Routine Given 04/28/2020 12:48 PM EDT 40 mEq rosuvastatin (Crestor) tablet 10 mg 10 mg, Oral, EVERY EVENING, First dose on Sun04/20/20 at 1700, Until Discontinued, Routine Given 04/22/2020 5:26 PM EDT 10 mg Given 04/20/2020 5:20 PM EDT 10 mg rosuvastatin (Crestor) tablet 20 mg 20 mg, Oral, EVERY EVENING, First dose (after last modification) on Sun04/23/20 at 1700, Until Discontinued, Routine Given 05/07/2020 4:56 PM EDT 20 mg Given 05/06/2020 4:51 PM EDT 20 mg Given 05/05/2020 6:07 PM EDT 20 mg senna-docusate (Pericolace) 8.6-50 mg per tablet 2 tablet 2 tablet, Oral, 2 TIMES DAILY, First dose on Sun04/20/20 at 0900, Until Discontinued, Hold for loose stools please! Thanks!, Routine sodium chloride 0.9 % (flush) flush 5 mL 5 mL, Intravenous, 2 TIMES DAILY, First dose on Sun04/19/20 at 2100, Until Discontinued, Routine Given 05/08/2020 8:08 AM EDT 5 mLs Given 05/07/2020 8:51 PM EDT 10 mLs Given 05/07/2020 8:12 AM EDT 5 mLs sodium chloride 0.9 % (flush) flush 5 mL 5 mL, Intravenous, 2 TIMES DAILY, First dose on Sun05/02/20 at 1145, Until Discontinued, Routine Given 05/08/2020 8:08 AM EDT 5 mLs Given 05/07/2020 8:51 PM EDT 10 mLs Given 05/07/2020 8:12 AM EDT 5 mLs sodium chloride 0.9 % (flush) flush 5-20 mL 5-20 mL, Intravenous, EVERY 1 MIN PRN, Starting on Sun05/02/20 at 1050, Until 05/08/20 at 1535, flush, Flush pertains to all indwelling lines. Flush per protocol found in the job aid using the link provided on this medication record., Routine sodium chloride 0.9% infusion 50 mL/hr, Intravenous, CONTINUOUS, Starting on Sun04/19/20 at 1745, Until Sun04/21/20 at 0541 Rate/Dose Verify 04/21/2020 4:00 AM EDT 50 mL/hr 50 mL/hr Rate/Dose Verify 04/21/2020 2:00 AM EDT 50 mL/hr 50 mL/h r Rate/Dose Verify 04/21/2020 12:00 AM EDT 50 mL/hr 50 mL/ hr sodium chloride 0.9% infusion 1,000 mL, at 100 mL/hr, Intravenous, CONTINUOUS, Starting on Sun04/28/20 at 1000, Until Sun04/28/20 at 1248, Angio/IR (Day of Procedure) New Bag 04/28/2020 10:00 AM EDT 1,000 mLs 10 0 mL/hr documented in this encounter Active and Recently Administered Medications Times are shown in EDT. Scheduled Medication Order 05/06/2020 05/07/2020 05/08/2020 acetaminophen (Tylenol) tablet 1,000 mg 1,000 mg, Oral, EVERY 8 HOURS, First dose (after last modification) on Sun04/20/20 at 1500, Until Discontinued, Maximum dose of acetaminophen is 4000 mg from all sources in 24 hours. When ordered for pain, acetaminophen should be given even when other ordered pain medications are indicated. , Routine 0409 (Given - Provider: Sandy Subramanian RN)1204 (Given - Provider: Fahad Muhammad RN)2049 (Given - Provider: Sandy Subramanian RN) 0412 (Given - Provider: Sandy Subramanian RN)1145 (Given - Provider: Kristi Gallegos, LYLA)2048 (Given - Provider: Teet Tanner, RN) 0600 (Not Given - Provider: Tete Tanner RN - Reason: Patient/family refused)1230 (Not Given - Provider: Kristi Gallegos RN - Reason: Patient/family refused) AMIOdarone (Cordarone; Pacerone) tablet 200 mg 200 mg, Oral, 2 TIMES DAILY, First dose on Sun04/22/20 at 0900, Until Discontinued, Routine 0927 (Given - Provider: Fahad Muhammad RN)2049 (Given - Provider: Sandy Subramanian RN) 08 (Given - Provider: Kristi Gallegos RN)2048 (Given - Provider: Tete Tanner RN) 0804 (Given - Provider: Kristi Gallegos RN) amoxicillin-clavulanate (Augmentin) 875-125 mg per tablet 1 tablet 1 tablet, Oral, 2 TIMES DAILY, First dose on Sun04/30/20 at 2100, Until Discontinued, Routine, Indication for (Active or Suspected): GI/Intra-abdominal 09 (Given - Provider: Fahad Muhammad RN)2048 (Given - Provider: Sandy Subramanian RN) 08 (Given - Provider: Kristi Gallegos RN)2048 (Given - Provider: Tete Tanner RN) 0805 (Given - Provider: Kristi Gallegos RN) aspirin chewable tablet 81 mg 81 mg, Oral, DAILY, First dose on Sun05/06/20 at 1315, Until Discontinued, Routine 1505 (Given - Provider: Fahad Muhammad RN) 0810 (Given - Provider: Kristi Gallegos RN) 0804 (Given - Provider: Kristi Gallegos RN) clopidogreL (Plavix) tablet 75 mg 75 mg, Oral, DAILY, First dose on Sun04/22/20 at 0900, Until Discontinued, Routine 926 (Given - Provider: Fahad Muhammad RN) 08 (Given - Provider: Kristi Gallegos, RN) 803 (Given - Provider: Kristi Gallegos RN) insulin glargine VIAL injection 25 Units 25 Units, Subcutaneous, NIGHTLY, First dose on Sun04/19/20 at 2100, Until Discontinued, Routine 2056 (Given - Provider: Sandy Subramanian RN) 2049 (Given - Provider: Tete Tanner RN) insulin lispro (HumaLOG) VIAL injection 1-4 Units (CANCELED) 1-4 Units, Subcutaneous, EVERY 4 HOURS SCHEDULED, First dose on Sun04/19/20 at 1700, Until Discontinued, CORRECTION BOLUS [1-4 [...] of > 240 in 2 hours., Routine 040 (Not Given - Provider: Sandy Subramanian RN - Reason: Order parameters not met - Comment: BG [phone])0824 (Not Given - Provider: Fahad Muhammad RN - Reason: Order parameters not met - Comment: BS [phone])1205 (Given - Provider: Fahad Muhammad RN - Comment: BS 200)165 (Given - Provider: Fahad Muhammad RN - Comment: BS 165)2050 (Given - Provider: Sandy Subramanian RN - Comment: BG 195)2344 (Given - Provider: Sandy Subramanian RN - Comment: BG 172) 0400 (Not Given - Provider: Sandy Subramanian RN - Reason: Order parameters not met - Comment: bg [phone])0800 (Not Given - Provider: Kristi Gallegos RN - Reason: Order parameters not met)1144 (Given - Provider: Kristi Gallegos RN) insulin lispro (HumaLOG) VIAL injection 1-4 Units(Linked Group 1) 1-4 Units, Subcutaneous, 4 TIMES DAILY BEFORE MEALS & NIGHTLY, First dose (after last modification) on Sun05/07/20 at 1630, Until Discontinued, CORRECTION BOLUS [1-4 Units] Sensitive [...] of > 240 in 2 hours., Routine 1653 (Given - Provider: Kristi Gallegos RN)2100 (Not Given - Provider: Tete Tanner RN - Reason: Order parameters not met) 0730 (Not Given - Provider: Tete Tanner RN - Reason: Order parameters not met)1125 (Given - Provider: Kristi Gallegos RN) losartan (Cozaar) tablet 25 mg 25 mg, Oral, DAILY, First dose on 05/01/20 at 1100, Until Discontinued, Routine 09 (Given - Provider: Fahad Muhammad RN) 08 (Given - Provider: Kristi Gallegos RN) 08 (Given - Provider: Kristi Gallegos RN) melatonin tablet 6 mg 6 mg, Oral, NIGHTLY, First dose on Sun04/30/20 at 2100, Until Discontinued, Routine 2049 (Given - Provider: Sanyd Subramanian RN) 2048 (Given - Provider: Tete Tanner RN) metoprolol succinate XL (Toprol-XL) tablet 300 mg 300 mg, Oral, NIGHTLY, First dose on 04/24/20 at 2100, Until Discontinued, DO NOT CRUSH OR OPEN, Routine 2048 (Given - Provider: Sandy SubramanianLYLA) 2048 (Given - Provider: Tete Tanner, RN) pantoprazole EC (Protonix) tablet 40 mg 40 mg, Oral, 2 TIMES DAILY, First dose on Sun05/03/20 at 2100, Until Discontinued, DO NOT CRUSH OR OPEN 28 (Given - Provider: Fahad Muhammad RN)2049 (Given - Provider: Sandy Subramanian, RN) 810 (Given - Provider: Kristi Gallegos RN)2048 (Given - Provider: Tete Tanner, RN) 804 (Given - Provider: Kristi Gallegos RN) polyethylene glycoL (Miralax) packet 17 g 17 g, Oral, DAILY, First dose on Sun04/20/20 at 0830, Until Discontinued, Hold for loose stools please! Thanks!, Routine 09 (Not Given - Provider: Fahad Muhammad RN - Reason: Patient/family refused) 09 (Not Given - Provider: Kristi Gallegos RN - Reason: Patient/family refused) 09 (Not Given - Provider: Kristi Gallegos RN - Reason: Patient/family refused) rosuvastatin (Crestor) tablet 20 mg 20 mg, Oral, EVERY EVENING, First dose (after last modification) on Sun04/23/20 at 1700, Until Discontinued, Routine 1650 (Given - Provider: Fahad Muhammad RN) 1655 (Given - Provider: Kristi Gallegos, LYLA) senna-docusate (Pericolace) 8.6-50 mg per tablet 2 tablet 2 tablet, Oral, 2 TIMES DAILY, First dose on Sun04/20/20 at 0900, Until Discontinued, Hold for loose stools please! Thanks!, Routine 926 (Not Given - Provider: Fahad Muhammad RN - Reason: Patient/family refused)2099 (Not Given - Provider: Sandy Subramanian RN - Reason: Contraindicated) 09 (Not Given - Provider: Kristi Gallegos RN - Reason: Patient/family refused)2099 (Not Given - Provider: Tete Tanner RN - Reason: Patient/family refused) 09 (Not Given - Provider: Kristi Gallegos RN - Reason: Patient/family refused) sodium chloride 0.9 % (flush) flush 5 mL 5 mL, Intravenous, 2 TIMES DAILY, First dose on Sun04/19/20 at 2100, Until Discontinued, Routine 34 (Given - Provider: Fahad Muhammad, RN)2057 (Given - Provider: Sandy Subramanian, RN) 811 (Given - Provider: Kristi Gallegos, RN)2050 (Given - Provider: Tete Tanner, RN) 08 (Given - Provider: Kristi Gallegos, RN) sodium chloride 0.9 % (flush) flush 5 mL 5 mL, Intravenous, 2 TIMES DAILY, First dose on Sun05/02/20 at 1145, Until Discontinued, Routine 0933 (Given - Provider: Fahad Muhammad, RN)2057 (Given - Provider: Sandy Subramanian, RN) 811 (Given - Provider: Kristi Gallegos, RN)899 (Not Given - Provider: Kristi Gallegos RN - Reason: Patient/family refused)2050 (Given - Provider: Tete Tanner, RN) 08 (Given - Provider: Kristi Gallegos, RN) PRN Medication Order 05/06/2020 05/07/2020 05/08/2020 bisacodyl EC (Dulcolax) tablet 10 mg 10 mg, Oral, DAILY PRN, Starting on Sun04/20/20 at 0742, Until 05/08/20 at 1535, Constipation, DO NOT CRUSH OR OPEN, Routine dextrose 10% infusion(Linked Group 2) 250 mL, at 1,000 mL/hr, Intravenous, EVERY 30 MIN PRN, Starting on Sun04/19/20 at 1612, Until 05/08/20 at 1535, For BG 50-70 mg/dL: Oral treatment preferred:?? [...] Intramuscular, EVERY 30 MIN PRN, Starting on Sun04/19/20 at 1612, Until 05/08/20 at 1535, Low blood sugar, For BG 50-70 mg/dL: [...] Buccal, EVERY 30 MIN PRN, Starting on Sun04/19/20 at 1612, Until 05/08/20 at 1535, Low blood sugar, For BG 50-70 mg/dL: [...] weight of tube = 37.5 grams., Routine labetalol (NORMODYNE,TRANDATE) injection 20 mg 20 mg, Intravenous, EVERY 2 HOURS PRN, Starting on 04/24/20 at 1613, Until 05/08/20 at 1535, High Blood Pressure, Routine lidocaine (XYLOCAINE) 10 mg/mL (1 %) injection 3 mg 3 mg (0.3 mL), Subcutaneous, ONCE PRN, 1 dose, Starting on 05/02/20 at 1050, Until 05/08/20 at 1535, for discomfort with PIV insertion, Routine oxyCODONE (Roxicodone) tablet 5 mg 5 mg, Oral, EVERY 4 HOURS PRN, Starting on 04/19/20 at 1612, Until 05/08/20 at 1535, Pain, Routine sodium chloride 0.9 % (flush) flush 5-20 mL 5-20 mL, Intravenous, EVERY 1 MIN PRN, Starting on 04/19/20 at 1612, Until 05/08/20 at 1535, flush, Flush pertains to all indwelling lines. Flush per protocol found in the job aid using the link provided on this medication record., Routine sodium chloride 0.9 % (flush) flush 5-20 mL 5-20 mL, Intravenous, EVERY 1 MIN PRN, Starting on 05/02/20 at 1050, Until 05/08/20 at 1535, flush, Flush pertains to all indwelling lines. Flush per protocol found in the job aid using the link provided on this medication record., Routine Linked Groups Order Group 1: POCT Fingerstick Glucose (CANCELED) Routine, 4 TIMES DAILY BEFORE MEALS & AT BEDTIME, First occurrence on Sun05/07/20 at 1700, Until Specified, Consider choosing EVERY 4 HOURS as frequency for: - Type 1 Diabetes - At least 24 hours after coming off an insulin drip - At least 24 hours after admission for DKA - Hypoglycemia unawareness - Patients who are otherwise unstable Select the same frequency for the correction bolus insulin order And insulin lispro (HumaLOG) VIAL injection 1-4 UnitsJump to med 1-4 Units, Subcutaneous, 4 TIMES DAILY BEFORE MEALS & NIGHTLY, First dose (after last modification) on Sun05/07/20 at 1630, Until Discontinued, CORRECTION BOLUS [1-4 Units] Sensitive [...] Buccal, EVERY 30 MIN PRN, Starting on 04/19/20 at 1612, Until 05/08/20 at 1535, Low blood sugar, For BG 50-70 mg/dL: [...] Intravenous, EVERY 30 MIN PRN, Starting on Sun04/19/20 at 1612, Until 05/08/20 at 1535, For BG 50-70 mg/dL: Oral treatment preferred:?? [...] Intramuscular, EVERY 30 MIN PRN, Starting on Sun04/19/20 at 1612, Until 05/08/20 at 1535, Low blood sugar, For BG 50-70 mg/dL: [...] Routine documented in this encounter Care Teams Senior Contract Specialist Relationship Specialty Start Date End Date Reshma Baig MD [address] [place] [address] PCP - General Family Medicine 11/08/18 06/23/21 documented as of this encounter
--- OUTSIDE RECORDS SUMMARY | 2024-03-17 14:25 | XMS_ITS | Encounter Summary ---
Author Organization [facility] Address [facility] [place] [address] Care Team Providers Care Medical Records Supervisor Name Role Phone Reshma Baig MD Primary Care Provider [phone] Reason for Visit * Auth/Cert Specialty Diagnoses / Procedures Referred By Malini carlson Referred To Contact Diagnoses Cholecystitis Cholecystitis Procedures EMERGENCY IPI Referral ID Status Reason Start Date Expiration Date Visits Re quested Visits Authorized [id number] 1 1 Encounter Details Date Type Department Care Team (Late st Contact Info) Description 05/03/2020 10:35 AM EDT Anesthesia [place] [address] Bronson Arguello MD [facility] [place] [address] Anesthesia Record Procedure Summary Procedure Name Responsible Anesthesiologist Anesthesia Start Time Anesthesia Stop Time EGD, UPPER GI ENDOSCOPY (WRVU 2.09) (Trunk) Bronson Arguello MD 05/03/20 1035 05/03/20 1055 Events Date Time Event Comment 05/03/2020 1034 AN Verify 1035 Start 1035 An Start Data 1039 An Induction 1040 Anesthesia Ready 1055 an stop data 1055 Stop 1648 Meds Name Total Propofol 70 mg Dexmedetomidine 4 mcg PHENYLephrine 320 mcg * Agents Name O2 Air N2O Sevoflurane (et) * Blood No blood administrations on file. Lines, Drains, and Airways Type Details Placement Removal (RETIRED) Peripheral IV Line - Single Lumen 04/20/20; 0515; cephalic vein (lateral side of arm), right (R-upper,anterior arm); ated-afg-estjbg catheter system; 05/08/20; 1242 04/20/20 0515 by Antonette Dyer RN 05/08/20 1242 by Gavin Coronado RN Drain/Device Site 04/22/20; 0932; Righ t; upper; abdomen; pigtail (10 Romanian Anna Tube); Dr. Collins; Sterile prep and drape, Sterile technique; Lidocaine 1%; Other; Exchanged with 10 fr tube; 07/15/20; 17104/22/20 0932 by Bobbi Fernandez RN 07/15/20 1711 by Fang Rodgers RN Drain/Device Site 04/28/20; 0956; Righ t; upper; abdomen; collapsible closed device (10 Romanian pigtail); Dr. Collins; 07/15/20; 17104/28/20 0956 by Bobbi Fernandez RN 07/15/20 1711 by Fang Rodgers RN (RETIRED) Peripheral IV Line - Single Lumen 05/02/20; 1228; cephalic vein (lateral side of arm), left; aurm-qgo-uglgbh catheter system; 20 gauge, 3/4 in length, 1 in length; Derick Murdock LPN VAS; distraction, intradermal injection; 05/08/20; 1242 05/02/20 1228 by Nadira Saha RN 05/08/20 1242 by Gavin Coronado, RN documented in this encounter Social History [...] OR Notes * Anesthesia Postprocedure Evaluation - Yara Mcguire - 05/03/2020 12:26 PM EDT Department of Anesthesiology Post-procedure Note Patient: Shannan A Heidy Procedure Summary Date: 05/03/20 Room / Location: [facility] ENDO 3 / [facility] ENDOSCOPY Anesthesia Start: 1035 Anesthesia Stop: 1055 Procedure: EGD, UPPER GI ENDOSCOPY (N/A Trunk) Diagnosis: (egd) Surgeon: Brigitte Graf MD Responsible Provider: Bronson Arguello MD Anesthesia Type: MAC ASA Status: 3 All Anesthesia Providers: Anesthesiologist: Bronson Arguello MD Cyber Security Administrator: Yara Mcguire MD Vitals Value Taken Time BP Temp Pulse Resp SpO2 Pain Level Patient Location: Floor Level of Consciousness: Awake and Alert Pain Management: Satisfactory Analgesia PONV: None Cardiovascular Status: At Baseline Respiratory Status: At Baseline Postoperative Fluid Status: Intravascular EUvolemia Possible Anesthetic Complications: NONE apparent at time of evaluation Final Primary Anesthesia Type: MAC (The anesthetic type performed was the same as planned.) Comments: * Anesthesia Preprocedure Evaluation - Yara Mcguire - 05/03/2020 12:24 PM EDT Pre-Anesthesia Evaluation for: Shannan Moody a 79 y.o. female. Procedure(s): EGD, UPPER GI ENDOSCOPY Patient Active Problem List Diagnosis ??? 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 Aortic stenosis - moderate ??? Atrial fibrillation--- paroxysmal ?? Mar 2020: AF with RVR seen during admission with cholecystitis. ??? Cholecystitis ??? Type 2 diabetes mellitus ??? Hypertension ??? Hyperlipidemia ??? Arthritis ??? Actinic keratosis ??? Seborrheic keratosis Past Medical History: Diagnosis Date ??? Diabetes ??? Severe aortic stenosis Past Surgical History: Procedure Laterality Date ??? CT PERITONEAL DRAINAGE 04/28/2020 CT Guided Drain Peritoneal 04/28/2020 [facility] RAD CAT SCAN ??? HYSTERECTOMY, VAGINAL ??? IR CHOLECYSTOSTOMY TUBE PLACEMENT 04/22/2020 IR Cholecystostomy Tube Placement 04/22/2020 Jos Collins, DO [facility] INTERVENTIONL RAD Social History Tobacco Use ??? Smoking status: Never Smoker ??? Smokeless tobacco: Never Used Substance Use Topics ??? Alcohol use: Yes Comment: occassional Social History Substance and Sexual Activity Drug Use Never No Known Allergies Medications: MAR and/or home medications have been reviewed. Physical Exam: Patient Vitals for the past 24 hrs: Temp Heart Rate From SP02 Pulse Resp BP SpO2 O2 Flow Rate (L/min) O2 Device 05/02/20 1615 36.6 ??C (97.9 ??F) 80 bpm -- 16 170/58 98 % -- 05/02/20 1955 36.7 ??C (98 ??F) 74 bpm -- 16 155/54 95 % -- 05/02/202028 -- -- 70 -- -- -- -- -- 05/03/20 0011 36.9 ??C (98.4 ??F) 66 bpm 66 18 145/55 95 % -- 05/03/20 0424 36.7 ??C (98 ??F) 58 bpm 59 18 156/47 95 % -- 05/03/20 0800 36.7 ??C (98.1 ??F) -- 60 18 155/45 (!) 88 % -- 05/03/20 0900 -- -- -- -- -- 95 % -- -- 05/03/20 0950 -- -- -- -- -- -- -- 05/03/20 1059 -- 54 bpm -- -- (!) 90/37 100 % 8 L/min PA 05/03/20 1101 -- 56 bpm -- -- (!) 71/58 100 % 4 L/min PA 05/03/20 1105 -- 55 bpm -- -- 100/43 97 % -- 05/03/20 1107 -- 57 bpm -- -- 112/45 97 % -- 05/03/20 1111 -- 54 bpm -- -- 117/49 97 % -- 05/03/20 1200 36.7 ??C (98.1 ??F) -- 61 20 142/52 95 % -- -- Body mass index is 35.99 kg/m??. Height: 152.4 cm (5') Weight: 83.6 kg (184 lb 4.9 oz) Airway Assessment: Mallampati: II TM distance: >3 FB Neck ROM: full Cardiovascular Assessment: Pulmonary Assessment: Dental Assessment: - normal exam Misc Assessment: IV access: Peripheral line Anesthesia Plan: ASA 3 MAC, with a(n) intravenous induction Shannan Moody is a 79 y.o. female with history of IDDM last A1c 8.5 (03/2020), HTN, HLD, moderate-severe who presents with cholecystitis. Here for upper endoscopy. Previous anesthesia: tolerated well Plan: MAC, Standard asa monitors ?? Region - Other Informed Consent: Anesthetic plan and risks discussed with patient. Use of blood products discussed with patient who consented to blood products. Plan discussed with resident and attending. PAT Clinic Note documented in this encounter Plan of Treatment Not on file documented as of this encounter Visit Diagnoses Not on filedocumented in this encounter Administered Medications Inactive Administered Medications - up to 3 most recent administrations Medication Order MAR Action Action Date Dose Rate Site dexmedetomidine (PRECEDEX) injection PRN, Starting on Sun05/03/20 at 1039, Until Sun05/03/20 at 1055, Anesthesia Intra-op, Routine Given 05/03/2020 10:39 AM EDT 4 mcg PHENYLephrine in NS (PF) (CHOCO-SYNEPHRINE) 0.8 mg/10 mL (80 mcg/mL) multi-dose injection Syrg PRN, Starting on Sun05/03/20 at 1039, Until Sun05/03/20 at 1055, Anesthesia Intra-op, Routine Given 05/03/2020 10:50 AM EDT 80 mcg Given 05/03/2020 10:42 AM EDT 80 mcg Given 05/03/2020 10:39 AM EDT 160 mcg propofoL (Diprivan) 10 mg/mL bolus injection (Anesthesia) PRN, Starting on Sun05/03/20 at 1039, Until Sun05/03/20 at 1055, Anesthesia Intra-op Given 05/03/2020 10:42 AM EDT 20 mg Given 05/03/2020 10:39 AM EDT 50 mg documented in this encounter Care Teams Medical Records Supervisor Relationship Specialty Start Date End Date Reshma Baig MD [address] [place] [address] PCP - General Family Medicine 11/08/18 06/23/21 documented as of this encounter
--- OUTSIDE RECORDS SUMMARY | 2024-03-17 14:27 | XMS_ITS | Encounter Summary ---
Author Organization [facility] Address [facility] [place] [address] Care Team Providers Care Body Component Engineer Name Role Phone Reshma Baig MD Primary Care Provider [phone] Encounter Details Date Type Department Care Team (Late st Contact Info) Description 04/22/2020 [place] [address] Michael Baron MD [facility] [place] [address] Cholecystitis Social History Tobacco Use Types Packs/Day [...] Date/Time Associated Diagnosis Comments EKG 12-LEAD Routine 04/21/2020 6:47 PM EDT documented in this encounter Results * EKG 12 Lead (04/21/2020 6:47 PM EDT) Ventricular rate 97 BPM MUSE SYSTEM Atrial Rate 97 BPM MUSE SYSTEM P-R Interval 110 ms MUSE SYSTEM QRS Duration 134 ms MUSE SYSTEM Q-T Interval 388 ms MUSE SYSTEM QTC Calculated (Bezet) 492 ms MUSE SYSTEM Calculated P [place] 47 degrees MUSE SYSTEM Calculated R [place] -62 degrees MUSE SYSTEM Calculated T [place] 92 degrees MUSE SYSTEM INTERPRETATION Sinus rhythm Right bundle branch block Left axis deviation Left ventricular hypertrophy with QRS widening and repolarization abnormality Abnormal ECG When compared with ECG of 21-APR-2020 04:33, (unconfirmed) No significant change was found Confirmed by MD Ramos Daniel ([id number]) on 04/23/2020 8:21:12 AM MUSE SYSTEM 04/21/2020 6:47 PM EDT 04/23/2020 8:21 AM EDT Unknown ECG ORDERABLES MUSE SYSTEM documented in this encounter Visit Diagnoses Diagnosis Cholecystitis Cholecystitis, unspecified documented in this encounter Care Teams Body Component Engineer Relationship Specialty Start Date End Date Reshma Baig MD [address] [place] [address] PCP - General Family Medicine 11/08/18 06/23/21 documented as of this encounter
--- OUTSIDE RECORDS SUMMARY | 2024-03-17 14:27 | XMS_ITS | Encounter Summary ---
Author Organization Pending Sale To [facility] Address [facility] [address] Care Team Providers Care Call Box Wirer Name Role Phone Reshma Baig MD Primary Care Provider [phone] Reason for Visit * Auth/Cert Specialty Diagnoses / Procedures Referred By Malini carlson Referred To Contact Diagnoses Cholecystitis Cholecystitis Procedures EMERGENCY IPI Referral ID Status Reason Start Date Expiration Date Visits Re quested Visits Authorized [id number] 1 1 Encounter Details Date Type Department Care Team (Late st Contact Info) Description 05/03/2020 10:00 AM EDT - 05/03/2020 10:45 AM EDT Surgery Gastroenterology at [facility] [place] [address] Brigitte Graf MD [facility] [place] [address] [place] [address] EGD, UPPER GI ENDOSCOPY (WRVU 2.09) Social History Tobacco Use Types Packs/Day Years [...] Sign Reading Time Taken Comments Blood Pressure 155/45 05/03/2020 8:00 AM EDT Pulse 60 05/03/2020 8:00 AM EDT Temperature 36.7 ??C (98.1 ??F) 05/03/2020 8:00 AM ED T Respiratory Rate 18 05/03/2020 8:00 AM EDT Oxygen Saturation 95% 05/03/2020 9:00 AM EDT Inhaled Oxygen Concentration - - [...] Shannan Chaudhary Patient Age: 79 y.o. Language: Yi Race: White Ethnicity: Not nor Admit date: [...] in the setting of melena and esophagitis, [id number] (11% risk) - Amiodarone 200mg BID for a total of 1 month (from 04/22 to 05/22); close cardiology follow-up scheduled for 05/18 - GI: EGD completed; recommending colonoscopy as outpatient Inpatient Provider Contact Information: For questions regarding this document or issues relating to this hospitalization on the Medical Service, please contact your inpatient physician through the [facility] Certified Master Locksmith . Issues afterhours and on weekends will [...] (records unavailable in eDH but reviewed by [facility] referring MD) who is admitted in transfer [...] the subsequent days and she presented to [facility] ED yesterday (Sunday). There her tBili was noted to be 2.2 and is stable at 2.1 here. Patient transferred from [facility] on 04/19 for cardiac preop eval due [...] Dr. Patel, patient was taken to the collaborative physician for RHC and evaluation. ?? In the collaborative physician she was found to have two vessel [...] patient was then transferred back to the CV. On conference between the General Surgery attending [...] cardiology follow-up scheduled with Dr. Galindo in [facility] on May 18 at 1pm. Will need discharge summary faxed to the clinic at [phone]. #Esophagitis #Melena #Acute Blood loss anemia Ms. [...] transitioned to Augmentin to complete course Shannan Reedlerc??is a 79 y.o.??female??with multiple cardiac risk factors [...] unchanged Dose Details blood sugar diagnostic strips [facility] Commonly known as: OneTouch Ultra Test 1 each by Other route 3 times daily (before meals). Diag code E10.65 1 each Quantity: 300 each Refills: 3 Blood-Glucose Meter [facility] One Touch Ultra Brand, 250.02. Quantity: 1 [...] each Quantity: 400 each Refills: 3 lancets [facility] Use twice daily or as needed. Quantity: [...] Time Provider Department Center 05/19/2020 10:30 AM [facility] IR ROOM 3 [facility] Rad 06/03/2020 10:10 AM [facility] IR ROOM 4 [facility] Rad 06/03/2020 2:00 PM Hong Rosenthal MD [facility] [place] You have a follow-up with cardiology scheduled for May [address] Galindo in [facility]. Your Primary Care Provider: Reshma Baig MD [phone] For questions regarding this document or issues relating to this hospitalization on the Medical Service, please contact your inpatient physician through the [facility] Certified Master Locksmith . Issues afterhours and on weekends will [...] or any other surface. Always put a sheltered workshop executive director on the end to keep clean. 11. If you drainage bags starts to have an odor, you can clean the bag after removing it from the tube. Turn the stopcock to off. Put on a sheltered workshop executive director to the end of the stopcock to [...] is during regular office hours, please call [phone]. If it is after regular office hours, or on weekends or holidays, please call [phone] and ask to speak to the Warehouse Foreman operations research engineer for Interventional Radiology. XX You have received [...] is during regular office hours, please call [phone]. If it is after regular office hours, or on weekends or holidays, please call [phone] and ask to speak to the Warehouse Foreman operations research engineer for Interventional Radiology. XX You have received [...] Provider Department Dept Phone 06/03/2020 10:10 AM [facility] IR ROOM 4 Radiology at [facility] Arrive at: 3Z INTERVENTIONAL RADIOLOGY [phone] Please expect a call from a radiology nurse within 3 days of your exam, you will need to follow theinstructions given at that time. 06/03/2020 2:00 PM Hong Rosenthal MD General Surgery at [facility] Arrive at: [facility] [employer] [facility] 4L [phone] 06/18/2020 3:00 PM Esau Rahman MD Cardiology at [facility] Arrive at: [facility] [employer] [facility] 4A [phone] Future Orders Complete By Expires IR Drain Check/Change/Remove [[id number] Custom] 05/19/2020 07/28/2020 Process Instructions: Scheduling Instructions: Comments: Questions: Where will study be performed?: [facility] Radiology Reason for exam and clinical [...] ?: Aspirin Clopidogrel Referral to Cardiac Rehab [[id number] Custom] As directed Process Instructions: If no progress note charted, please enter Clinical details in comments. Scheduling Instructions: Questions: My question or request is: NSTEMI. Cardiac rehab at [facility] Referral to General Surgery [REF27 Custom] As directed Process Instructions: If no progress note charted, please enter Clinical details in comments. If you are requesting vascular access please answer the VAD questions Due to the OR limitations at the [facility], if you are considering surgery for this patient, and their BMI is greater than 50, please refer to Man General Surgery (or a division other than [facility]). Scheduling Instructions: Questions: Are you seeking Vascular Access?: No My question or request is: Follow-up to discuss cholecystectomy. Patient is s/p perc arron tube placement, has tube study scheduled with IR for 06/03, needs appointment on this day. Referral to Home Health - at DISCHARGE [XUI2396 CPT(R)] As directed Process Instructions: Scheduling Instructions: [...] Nurse Practitioner, Clinical Nurse Specialist or Physician [employer] Reading Teacher who is working directly with them, had [...] appropriate for home health services. Patient Location: [address] [place] [address] (home) Telephone Information: HOME Health Agency: [facility] PHONE: [phone] FAX: [phone] RN: Assess cardiopulmonary assessment, vital signs, medication management and effectiveness, elimination and nutrition and home safety evaluation. Arron drain care with daily flushes. OT: Please assess home safety, ADL's and IADL's and provide home health aid if indicated Start of Care Date: next 24-48 hours All A agencies which cover the area [...] patient's PCP: Reshma Baig MD [address] [place] [address] Questions: Agency name and contact information: [facility] Patient location post discharge: home What services [...] will require interval cholecystectomy. Kota Gonzales MD documented in this encounter Discharge Instructions [...] may teach a family member if they are willing. The dressing needs to only be change [...] or any other surface. Always put a sheltered workshop executive director on the end to keep clean. 11. If you drainage bags starts to have an odor, you can clean the bag after removing it from the tube. Turn the stopcock to off. Put on a sheltered workshop executive director to the end of the stopcock to [...] is during regular office hours, please call [phone]. If it is after regular office hours, or on weekends or holidays, please call [phone] and ask to speak to the Warehouse Foreman operations research engineer for Interventional Radiology. XX You have received [...] is during regular office hours, please call [phone]. If it is after regular office hours, or on weekends or holidays, please call [phone] and ask to speak to the Warehouse Foreman operations research engineer for Interventional Radiology. XX You have received [...] Time Provider Department Center 05/19/2020 10:30 AM [facility] IR ROOM 3 IR [facility] Rad 06/03/2020 10:10 AM [facility] IR ROOM 4 [facility] Rad 06/03/2020 2:00 PM Hong Rosenthal MD [facility] [place] You have a follow-up with cardiology scheduled for May [address] Galindo in [facility]. Your Primary Care Provider: Reshma Baig MD [phone] For questions regarding this document or issues relating to this hospitalization on the Medical Service, please contact your inpatient physician through the [facility] Certified Master Locksmith . Issues afterhours and on weekends will [...] spent >30 minutes (Day of Discharge Code 72744) involved in the final examination of the [...] main entrance with her son to home. [facility] planned for home care. Patient educated [...] drain care. Questions answered. Medications sent to [facility] in [facility]. * Davon Leung MD - 05/08/2020 7:56 AM EDT [facility] Medicine - Red Team Inpatient Progress Note [...] Collection; Culture 04/28 Body Fluid Culture, Aerobic [[id number]] (Abnormal) Collected: 04/28/20 1000 Lab Status: Preliminary [...] Routine Diet: Daily Healthy Menu Choices/Cardiac diet ([facility] CHO cont DVT ppx: SCDs Fluids: PO Access: PIV Dispo: Home today; with VNA Code: Full Code Davon Leung MD 05/08/2020 PGY-2, Internal Medicine Red Team - Pager [phone] Associated attestation - Kota Gonzales MD - [...] (records unavailable in eDH but reviewed by [facility] referring MD) who was admitted in transfer [...] w/ severe (valve area 0.8) transferred to [facility] with acute cholecystitis. Unable to performcholecystectomy 2/2 [...] General surgery will sign off. Please page [phone] with any questions or concerns. Jeevan Black MD General Surgery 05/07/2020 * Wilner Esparza MD - 05/07/2020 10:16 AM EDT [facility] Red Team Inpatient Progress Note ID: Shannan [...] Collection; Culture 04/28 Body Fluid Culture, Aerobic [[id number]] (Abnormal) Collected: 04/28/20 1000 Lab Status: Preliminary [...] remains in normal sinus on metoprolol and [id number] BID (end 05/22). AC plan to DAPT [...] # cardiogenic shock, resolved # pulmonary edema 2/ afib-rvr, resolving # HTN # hypokalemia # [...] Routine Diet: Daily Healthy Menu Choices/Cardiac diet ([facility]) CHO cont DVT ppx: SCDs Fluids: PO Access: PIV Dispo: pending Code: Full Code Wilner Esparza MD 05/07/2020 PGY-1, Internal Medicine Red Team - Pager [phone] Associated attestation - Milagros Velazquez MD - [...] of two midnights or is on the [facility] inpatient only procedure list (status C) due [...] Esparza MD - 05/06/2020 7:48 AM EDT [facility] Medicine - Red Team Inpatient Progress Note [...] Collection; Culture 04/28 Body Fluid Culture, Aerobic [[id number]] (Abnormal) Collected: 04/28/20 1000 Lab Status: Preliminary [...] bleeding, including the SIS drain. Will contact casework manager during IDR regarding assistance for paying [...] Routine Diet: Daily Healthy Menu Choices/Cardiac diet ([facility]) CHO cont DVT ppx: SCDs Fluids: PO Access: PIV Dispo: pending Code: Full Code Wilner Esparza MD 05/06/2020 PGY-1, Internal Medicine Red Team - Pager [phone] Associated attestation - Milagros Velazquez MD - [...] of two midnights or is on the [facility] inpatient only procedure list (status C) due [...] (records unavailable in eDH but reviewed by [facility] referring MD) who was admitted in transfer [...] w/ severe (valve area 0.8) transferred [place] [facility] with acute cholecystitis. Unable to performcholecystectomy 2/2 [...] Esparza MD - 05/05/2020 8:51 AM EDT [facility] Medicine - Red Team Inpatient Progress Note [...] joint swelling or pain Labs: Recent Labs 05/05/20 0734 05/04/20201105/04/20 1426 [...] 164 Recent Labs 05/05/20 0734 05/05/20 0529 05/04/20 0518 05/03/20 0508 CALCIUM 8.5 -- 8.9 9.0 MAGNESIUM -- 0.81 0.97 0.82 Recent Labs 05/04/20 0518 05/03/20 0508 05/02/20 [...] Collection; Culture 04/28 Body Fluid Culture, Aerobic [[id number]] (Abnormal) Collected: 04/28/20 1000 Lab Status: Preliminary [...] Routine Diet: Daily Healthy Menu Choices/Cardiac diet ([facility] CHO cont DVT ppx: SCDs Fluids: PO Access: PIV Dispo: pending Code: Full Code Wilnre Esparza MD 05/05/2020 PGY-1, Internal Medicine Red Team - Pager [phone] Brooke Simmons RN - 05/04/2020 1:03 PM EDT Chart [...] she is independent and active. 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 Is driving and able to walk good distances.? Patient is insured through: Primary Insurance: [employer] [place] Payor: [employer] [place] / Plan[place] / Product Type: *No Product type* / Secondary Insurance: N/A Prescription Coverage: yes ?? Plan for discharge is: Services Anticipated at Discharge: home health care - orders routed/pended with: ?? [facility] ?? PHONE: [phone] FAX: [phone] ?? Barriers to discharge: no barriers for a safe/appropriate discharge that are identified at this time. ?? Plan going forward: CM will continue to follow and assist with discharge planning and coordination of care as indicated. ?? * Wilner Esparza MD - 05/04/2020 8:48 AM EDT [facility] Medicine - Red Team Inpatient Progress [...] swelling or pain Labs: Recent Labs 05/04/20 0518 05/03/20 1349 [...] Collection; Culture 04/28 Body Fluid Culture, Aerobic [[id number]] (Abnormal) Collected: 04/28/20 1000 Lab Status: Preliminary [...] Routine Diet: Daily Healthy Menu Choices/Cardiac diet ([facility] CHO cont DVT ppx: SCDs Fluids: PO Access: PIV Dispo: pending Code: Full Code Wilner Esparza MD 05/04/2020 PGY-1, Internal Medicine Red Team - Pager [phone] Associated attestation - Milagros Velazquez MD - [...] of two midnights or is on the [facility] inpatient only procedure list (status C) due [...] (records unavailable in eDH but reviewed by [facility] referring MD) who was admitted in transfer [...] w/ severe (valve area 0.8) transferred [place] [facility] with acute cholecystitis. Unable to performcholecystectomy 2/2 [...] (records unavailable in eDH but reviewed by [facility] referring MD) who was admitted in transfer [...] -1173 ml Labs: Recent Labs 05/03/20 0508 05/02/20 2057 05/02/20 1513 WBC 13.1* 12.9* 11.8* HGB [...] w/ severe (valve area 0.8) transferred to [facility] with acute cholecystitis. Unable to performcholecystectomy 2/2 [...] Esparza MD - 05/03/2020 9:41 AM EDT [facility] Medicine - Red Team Inpatient Progress Note [...] Collection; Culture 04/28 Body Fluid Culture, Aerobic [[id number]] (Abnormal) Collected: 04/28/20 1000 Lab Status: Preliminary [...] Routine Diet: Daily Healthy Menu Choices/Cardiac diet ([facility] CHO cont DVT prophylaxis: apixaban, ASA, plavix Fluids: PO Access: PIV Dispo: pending Code: Full Code Wilner Esparza MD 05/03/2020 PGY-1, Internal Medicine Red Team - Pager [phone] Associated attestation - Milagros Velazquez MD - [...] of two midnights or is on the [facility] inpatient only procedure list (status C) due [...] Esparza MD - 05/02/2020 11:15 AM EDT [facility] Medicine - Red Team Inpatient Progress Note [...] joint swelling or pain Labs: Recent Labs 05/02/2061205/01/2052204/30/20 0636 WBC 13.9* 13.5* 17.2* HGB 8.9* 9.2* 9.7* HCT 27.5* 28.6* 31.1* PLATELET 405* 372* 375* Recent Labs 05/02/2061205/01/2052204/30/20 0636 NA 139 136 135 K 4.0 4.0 3.8 CL 105 104 100 CO2 23 22 22 BUN 28* 29* 34* CREATININE 0.78 0.77 1.05 GLUCOSE 164 170 166 Recent Labs 05/02/2061205/01/2052204/30/20 0636 CALCIUM 8.9 8.8 8.5 MAGNESIUM 0.85 0.89 0.94 Recent Labs 05/02/2061205/01/2052204/30/20 0636 AST 9 10 14 ALT 10 [...] Collection; Culture 04/28 Body Fluid Culture, Aerobic [[id number]] (Abnormal) Collected: 04/28/20 1000 Lab Status: Preliminary [...] Routine Diet: Daily Healthy Menu Choices/Cardiac diet ([facility]) CHO cont DVT prophylaxis: apixaban, ASA, plavix Fluids: PO Access: PIV Dispo: pending Code: Full Code Wilner Esparza MD 05/02/2020 PGY-1, Internal Medicine Red Team - Pager [phone] Associated attestation - Milagros Velazquez MD - [...] of two midnights or is on the [facility] inpatient only procedure list (status C) due [...] (records unavailable in eDH but reviewed by [facility] referring MD) who was admitted in transfer [...] ml Net -767 ml Labs: Recent Labs 05/01/2052204/30/20 0636 04/29/20 0417 WBC 13.5* 17.2* 18.0* HGB 9.2* 9.7* 9.8* HCT 28.6* 31.1* 30.1* PLATELET 372* 375* 397* Recent Labs 05/01/2052204/30/20 0636 04/29/20 0417 NA 136 135 136 K 4.0 3.8 3.9 CL 104 100 103 CO2 22 22 22 BUN 29* 34* 28* CREATININE 0.77 1.05 0.96 GLUCOSE 170 166 152 No results for input(s): PT, INR in the last 72 hours. Invalid input(s): PTT Assessment/Plan: 79y F w/ severe (valve area 0.8) transferred [place] [facility] with acute cholecystitis. Unable to performcholecystectomy 2/2 [...] weeks. Please do not hesitate to page [phone] with any questions or concerns. Jeevan Black [...] Orders Diet Daily Healthy Menu Choices/Cardiac diet ([facility]) 60/60/75 CHO counting level 2 Frequency: Effective [...] consulted in the interim. SULEMAN Lopes Pager: [phone] * Davon Leung MD - 05/01/2020 8:21 AM EDT [facility] Medicine - Red Team Inpatient Progress Note [...] on metoprolol and amiodarone - Lasix and [place] held since 04/28 for FORREST - No [...] joint swelling or pain Labs: Recent Labs 05/01/2052204/30/2063504/29/20416 WBC 13.5* 17.2* 18.0* HGB 9.2* 9.7* 9.8* HCT 28.6* 31.1* 30.1* PLATELET 372* 375* 397* Recent Labs 05/01/2052204/30/2063504/29/20416 NA 136 135 136 K 4.0 3.8 3.9 CL 104 100 103 CO2 22 22 22 BUN 29* 34* 28* CREATININE 0.77 1.05 0.96 GLUCOSE 170 166 152 Recent Labs 05/01/2052204/30/2063504/29/20 041 CALCIUM 8.8 8.5 8.5 MAGNESIUM 0.89 0.94 0.83 Recent Labs 05/01/2052204/30/2063504/29/20 041 AST 10 14 15 ALT 11 12 [...] Collection; Culture 04/28 Body Fluid Culture, Aerobic [[id number]] (Abnormal) Collected: 04/28/20 1000 Lab Status: Preliminary [...] though still overall mild, appears pre-renal even [id number] LR yesterday. Will give 500cc gently today. [...] her on Plavix and apixaban. Will contact [facility] moving forward with with this plan. # [...] Routine Diet: Daily Healthy Menu Choices/Cardiac diet ([facility]) CHO cont DVT prophylaxis: apixaban, ASA, plavix Fluids: PO Access: PIV Dispo: pending Code: Full Code Davon M Ng, MD 05/01/2020 PGY-2, Internal Medicine Red Team - Pager [phone] Associated attestation - Milagros Velazquez MD - [...] of two midnights or is on the [facility] inpatient only procedure list (status C) due to: Hepatic abscess secondary to cholecystitis Has been off diuretic without overt failure. Volume depletion on exam yesterday and received IVF bolus. Monitor renal function. Will need followup with both cardiology and general surgery in clinic Will need drain study in 2 weeks (not prior to discharge) * Gracia Trivedi RN - 04/30/2020 5:09 PM EDT OUTCOME [...] indirect monitoring]: Purposeful rounding, room near nurses station, [facility]. Patient-specific fall prevention interventions for sensory deficits provided, if applicable: [X] No * Veda Avila DO - 04/30/2020 1:31 PM EDT BREIF ID [...] Avila, DO Infectious Diseases Fellow- PGY4 Pager: [phone] 04/30/2020 1:37 PM Associated attestation - Harris [...] Discharge: None Electronically signed: Hong Zavala RN, Director Process Engineering Pgr: [phone] 04/30/2020 10:23 AM * Wilner Esparza MD - 04/30/2020 8:08 AM EDT [facility] Medicine - Red Team Inpatient Progress Note [...] joint swelling or pain Labs: Recent Labs 04/30/2063504/29/207 04/28/20 0405 WBC 17.2* 18.0* 14.8* HGB 9.7* 9.8* 10.5* HCT 31.1* 30.1* 32.5* PLATELET 375* 397* 421* Recent Labs 04/30/2063504/29/207 04/28/20 0405 NA 135 136 137 K 3.8 3.9 3.5 CL 100 103 105 CO2 22 22 21* BUN 34* 28* 16 CREATININE 1.05 0.96 0.80 GLUCOSE 166 152 149 Recent Labs 04/30/2063504/29/20 0417 04/28/20 0405 CALCIUM 8.5 8.5 8.7 MAGNESIUM 0.94 0.83 0.78 Recent Labs 04/30/2063504/29/207 04/28/20 0405 AST 14 15 12 ALT [...] though still overall mild, appears pre-renal even [id number] LR yesterday. Will give 500cc gently today. [...] her on Plavix and apixaban. Will contact [facility] moving forward with with this plan. # [...] Routine Diet: Daily Healthy Menu Choices/Cardiac diet ([facility]) CHO cont DVT prophylaxis: apixaban Fluids: PO Access: PIV Dispo: pending Code: Full Code Wilner Esparza MD 04/30/2020 PGY-1, Internal Medicine Red Team - Pager [phone] Associated attestation - Dale Gonzáles MD - [...] of two midnights or is on the [facility] inpatient only procedure list (status C) due [...] (records unavailable in eDH but reviewed by [facility] referring MD) who was admitted in transfer [...] Abd: soft, nondistended, TTP in RUQ. Perc arron tube site with no erythema or drainage and bile in bag. Abscess drain with minimal fluid. Skin: warm, dry Intake/Output Summary (Last 24 hours) at 04/30/2020 0754 Last data filed at 04/30/2020 0420 Gross per 24 hour Intake 350 ml Output 585 ml Net -235 ml Labs: Recent Labs 04/30/2063504/29/2041604/28/20 0405 WBC 17.2* 18.0* 14.8* HGB 9.7* 9.8* 10.5* HCT 31.1* 30.1* 32.5* PLATELET 375* 397* 421* Recent Labs 04/30/2063504/29/2041604/28/20 0405 NA 135 136 137 K 3.8 3.9 3.5 CL 100 103 105 CO2 22 22 21* BUN 34* 28* 16 CREATININE 1.05 0.96 0.80 GLUCOSE 166 152 149 No results for input(s): PT, INR in the last 72 hours. Invalid input(s): PTT Assessment/Plan: 79y F w/ severe (valve area 0.8) [place] [facility] with acute cholecystitis. Unable to performcholecystectomy 2/2 [...] (records unavailable in eDH but reviewed by [facility] referring MD) who was admitted in transfer [...] ml Net -454 ml Labs: Recent Labs 097 04/28/20 0405 04/27/20 0441 WBC 18.0* 14.8* 15.1* [...] w/ severe (valve area 0.8) [facility] [place] [facility] CITY with acute cholecystitis. Unable to performcholecystectomy 2/2 [...] abx for now. Gege Garrison MD * Miguel Lobo S - 04/29/2020 11:20 AM EDT Inpatient [...] Esparza MD - 04/29/2020 8:21 AM EDT [facility] - Red Team Inpatient Progress Note ID: [...] joint swelling or pain Labs: Recent Labs 04/29/2041604/28/205 04/27/20 044 WBC 18.0* 14.8* 15.1* HGB 9.8* 10.5* 10.3* HCT 30.1* 32.5* 32.1* PLATELET 397* 421* 422* Recent Labs 04/29/2041604/28/20 0405 04/27/20 0441 NA 136 137 138 K 3.9 3.5 3.5 CL 103 105 103 CO2 22 21* 23 BUN 28* 16 12 CREATININE 0.96 0.80 0.63* GLUCOSE 152 149 167 Recent Labs 04/29/2041604/28/20 0405 04/27/20 0441 CALCIUM 8.5 8.7 8.7 MAGNESIUM 0.83 0.78 0.76 Recent Labs 04/29/2041604/28/20 0405 04/27/20 0441 AST [...] her on Plavix and apixaban. [facility]. # [...] Routine Diet: Daily Healthy Menu Choices/Cardiac diet [place] [place] CHO cont DVT prophylaxis: apixaban Fluids: PO Access: PIV Dispo: transfer to 4600 Code: Full Code Wilner Esparza MD 04/29/2020 PGY-1, Internal Medicine Red Team - Pager [phone] Associated attestation - Dale Gonzáles MD - [...] of two midnights or is on the [facility] inpatient only procedure list (status C) due to: IV treatment for arabella-hepatic abscess. We will consult ID in regards to perihepatic abscess. We will touch base with general surgery in regards to anticoagulation plan for cholecystectomy. * Chioma Vann RN - 04/28/2020 12:42 PM EDT OFFICE OF CARE MANAGEMENT PROGRESS NOTE Chart reviewed, care reviewed with primary team and at interdisciplinary rounds. Patient continues to require acute hospital care for a new liver abscess. Sx to place a drain and now on IV abx for treatment. Functional status prior to admission: States she is independent and active. 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 Is driving and able to walk good distances. Patient is insured through: Primary Insurance: [employer] Payor: [employer] [place] / Plan: [facility] [place] / Product Type: *No Product type* / Secondary Insurance: N/A Prescription Coverage: yes Plan for discharge is: Services Anticipated at Discharge: home health care - orders routed/pended [facility]. PHONE: [phone] FAX: [phone] Barriers to discharge: as listed above Plan going forward: CM will continue to follow and assist with discharge planning and coordination of care as indicated. Chioma Vann RN, MSN Director Process Engineering - Cardiology Office of Care Management Pager: [phone] Work * Bobbi Fernandez RN - 04/28/2020 8:28 AM EDT [facility] NURSING DATABASE Name: SHANNAN CHAUDHARY Date of : 1940 AGE: 79 y.o. [address]: [address] [place] [id number] (home) Mobile: Telephone Information: Referring Provider: Bethany [...] days held): None (04/28/20753) Planned access site: RUQ (04/28/20753) Position: Supine (04/28/20753) Cytopathology presence needed: No (04/28/20753) Consent: Pending (04/28/20753) No Known Allergies Pertinent PMH: Patient Active [...] (records unavailable in eDH but reviewed by [facility] referring MD) who was admitted in transfer [...] ml Net -1125 ml Labs: Recent Labs 04/28/20 0405 04/27/2044004/26/20441 WBC 14.8* 15.1* 13.9* HGB 10.5* 10.3* 10.0* HCT 32.5* 32.1* 31.5* PLATELET 421* 422* 398* Recent Labs 04/28/20 0405 04/27/2044004/26/20441 NA 137 138 142 K 3.5 3.5 3.3* CL 105 103 107 CO2 21* 23 22 BUN 16 12 14 CREATININE 0.80 0.63* 0.67* GLUCOSE 149 167 172 No results for input(s): PT, INR in the last 72 hours. Invalid input(s): PTT Assessment/Plan: 79y F w/ severe (valve area 0.8) [place] [facility]. Unable to performcholecystectomy 2/2 [...] AF who presented as a transfer from [facility] for acute cholecystitis with a course complicated [...] appropriate mood and affect Labs: Recent Labs 04/28/20 0405 04/27/20 0441 04/26/20 0442 WBC 14.8* 15.1* 13.9* HGB 10.5* 10.3* 10.0* HCT 32.5* 32.1* 31.5* PLATELET 421* 422* 398* Recent Labs 04/23/20 0225 04/22/20 0350 INR 1.3 1.2 Recent Labs 04/28/20 0405 04/27/20 0441 04/26/20 0442 NA 137 138 142 K 3.5 3.5 3.3* CL 105 103 107 CO2 21* 23 22 BUN 16 12 14 CREATININE 0.80 0.63* 0.67* Recent Labs 04/28/20 0405 04/27/20 0441 04/26/20 0442 AST 12 12 14 ALT 12 [...] Internal Medicine PGY1 Cardiology M1-S2 Team Pager [phone] Associated attestation - Abiodun Chun MD - [...] stable for discharge to home. * Reshma Allred RN - 04/27/2020 3:58 PM EDT Chart reviewed, care reviewed with primary team and at interdisciplinary rounds. Ms Chaudhary may be medically ready for discharge to home tomorrow with VNA services. Met with patient who is concerned about showering at home. [facility] has been pended for RN only. The orders have been signed, so I am unable to adjust them. I have asked Dr Ruma garcia who signed them to add choly tube care and OT to assess home safety, ADL's, IADL's and include MACHINE PRINTER if appropriate. Will be transported via private car with family. Patient is insured through [employer], however states she has Medicare A secondary-Due [...] (records unavailable in eDH but reviewed by [facility] referring MD) who was admitted in transfer [...] Net 640 ml Labs: Recent Labs 04/27/20 04404/26/20 04404/25/20 0505 WBC 15.1* 13.9* 14.1* HGB 10.3* 10.0* 10.0* HCT 32.1* 31.5* 30.9* PLATELET 422* 398* 396* Recent Labs 04/27/2044004/26/20 0442 04/25/20 0505 NA 138 142 142 K 3.5 3.3* 3.1* CL 103 107 108* CO2 23 22 22 BUN 12 14 16 CREATININE 0.63* 0.67* 0.69* GLUCOSE 167 172 138 No results for input(s): PT, INR in the last 72 hours. Invalid input(s): PTT Assessment/Plan: 79y F w/ severe (valve area 0.8) [place] [facility] [place]ole[place]is. Unable to performcholecystectomy 2/2 recent PCI with two stents requiring DAPT x 6 weeks. Now s/p cholecystostomy tube and appears to be recovering well. She is tolerating a regular diet and denies pain in the RUQ or anywhere else. Her WBC has increased today to 15. Recommending CT abdomen and pelvis with contrast.We will continue to follow. Please page [phone] with any questions or concerns. Jeevan Black [...] Orders Diet Daily Healthy Menu Choices/Cardiac diet ([facility] [place] Frequency: Effective Now Number of Occurrences: Until [...] consulted in the interim. SULEMAN Lopes Pager: [phone] * Julianna Hendrix MD - 04/27/2020 7:41 [...] AF who presented as a transfer from [facility] for acute cholecystitis with a course complicated [...] and affect Labs: Recent Labs 04/27/20 04404/26/20 04404/25/20 0505 WBC 15.1* 13.9* 14.1* HGB 10.3* 10.0* 10.0* HCT 32.1* 31.5* 30.9* PLATELET 422* 398* 396* Recent Labs 04/23/20 0225 04/22/20 0350 04/21/20 0330 INR 1.3 1.2 1.2 Recent Labs 04/27/20 04404/26/20 0442 04/25/20 0505 NA 138 142 142 K 3.5 3.3* 3.1* CL 103 107 108* CO2 23 22 22 BUN 12 14 16 CREATININE 0.63* 0.67* 0.69* Recent Labs 04/27/20 0441 04/26/20 0442 04/25/20 0505 AST 12 14 15 ALT 13 14 15 ALKPHOS 230* 253* 239* BILITOT 0.5 0.4 0.4 Recent Labs 04/27/20 0441 04/26/20 0442 04/25/20 0505 CALCIUM 8.7 8.6 8.7 [...] ornithinolytica, pansensitive s/p zosyn (824/-04/26) - Leukocytosis increased to 15.1 from 13.9 [...] Misc Diet: Daily Healthy Menu Choices/Cardiac diet [place] [place] DVT ppx: SQH GI ppx: Protonix PT/OT consult ?? Code Status:Attempt Cardiopulmonary Resuscitation - Inpatient ?? Dispo- floor Julianna Hendrix MD Internal Medicine PGY1 Cardiology M1-S2 Team Pager [phone] Associated attestation - Abiodun Chun MD - [...] (records unavailable in eDH but reviewed by [facility] referring MD) who was admitted in transfer [...] w/ severe (valve area 0.8) transferred [place] [facility] [place] chole[place]stitis. Unable to performcholecystectomy 2/2 [...] We will continue to follow. Please page [phone] with any questions or concerns. Jeevan Black [...] to rise then would plan on repeat CT. Gege Garrison MD * Chioma Vann RN - 04/26/2020 11:38 AM EDT CARE MANAGEMENT DISCHARGE NOTE Chart reviewed, care reviewed with primary team and at interdisciplinary rounds. Patient is medically ready for discharge to home with VNA services. [facility]. PHONE: [phone] FAX: [phone] Will be transported via [employer]. This plan was formulated with input from patient, family and team. All are in agreement with plan. Chioma Vann RN, MSN Director Process Engineering - Cardiology Office of Care Management Pager: [phone] Work * Julianna Hendrix MD - 04/26/2020 [...] AF who presented as a transfer from [facility] for acute cholecystitis with a course complicated [...] mood and affect Labs: Recent Labs 04/26/20 0442 04/25/20 0505 04/24/20 0458 WBC 13.9* 14.1* 12.2* HGB 10.0* 10.0* 10.1* HCT 31.5* 30.9* 31.2* PLATELET 398* 396* 375* Recent Labs 04/23/20 0225 04/22/20 0350 04/21/20 0330 INR 1.3 1.2 1.2 Recent Labs 04/26/20 0442 04/25/20 0505 04/24/20 0458 NA 142 142 143 K 3.3* 3.1* 3.3* CL 107 108* 108* CO2 22 22 22 BUN 14 16 25* CREATININE 0.67* 0.69* 0.74 Recent Labs 04/26/20 0442 04/25/20 0505 04/24/20 0458 04/20/20 0243 AST 14 15 14 < > Not Perf 18 ALT 14 15 16 < > Not Perf 22 ALKPHOS 253* 239* 243* < > Not Perf 139* BILITOT 0.4 0.4 0.4 < > Not Perf 1.5* BILIDIR -- -- -- -- 0.5* < > = values in this interval not displayed. Recent Labs 04/26/20 0442 04/25/20 0505 04/24/20 0458 04/20/20 0243 CALCIUM 8.6 [...] Misc Diet: Daily Healthy Menu Choices/Cardiac diet [place] [place] DVT ppx: SQH GI ppx: Protonix PT/OT consult ?? Code Status:Attempt Cardiopulmonary Resuscitation - Inpatient ?? Dispo- floor Julianna Hendrix MD Internal Medicine PGY1 Cardiology M1-S2 Team Pager [phone] Associated attestation - Abiodun Chun MD - [...] (records unavailable in eDH but reviewed by [facility] referring MD) who was admitted in transfer [...] w/ severe (valve area 0.8) [place] [facility] [place]ole[place]stitis. Unable to performcholecystectomy 2/2 [...] MD 04/25/2020 4:25 PM * Isi Kingston Safia - 04/25/2020 12:09 PM EDT Physical Therapy Evaluation Patient profile: Shannan Chaudhary is a 79 y.o. female admitted on 04/19/[address] Abiodun Chnu MD with a PMH??of HTN, HLD, DM, possible history of AF who presented??as a transfer from [facility] for acute cholecystitis with a course complicated [...] Cholecystostomy Tube Placement 04/22/2020 Jos Collins, DO [facility] Social History: Home set-up: lives alone in a 3 story home but is able to stay on the 1st floor, laundry is in the basement but granddaughter can help. 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 Equipment at home: quad walker, and cane. [...] reach RN updated following visit. Assessment: Shannan Tito Chaudhary was seen today for physical therapy evaluation. Pt initially in bedside recliner, agreeable to participate. Pt presents with the following impairments/limitations: aerobic capacity/endurance, gait, locomotion, and balance and muscle performance. 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 Pt limited this date by [...] Evaluation Minutes, Physical Therapy: 29(evaluation ) Isi Kingston, [facility] Pager: [phone] Physical Therapy Inpatient Rehabilitation Department Associated attestation - Esau Caicedo PT - 04/25/2020 2:42 PM EDT Patient status, treatment interventions, and goals discussed with student. I am in agreement with all details and associated flowsheet rows as documented and was present for all aspects of the patient treatment session. Treatment session performed and note written with this short story writer. Please do not hesitate to contact this short story writer with any questions, thank you. Esau Isaac, PT Pager #[phone] Inpatient Rehabilitation * Hong Levi MD - [...] AF who presented as a transfer from [facility] for acute cholecystitis with a course complicated by afib with RVR and hypotension now transferring to the Cardiology service due to concern for severe (COIRNE 0.8 at OSH) with consideration of direct [...] Misc Diet: Daily Healthy Menu Choices/Cardiac diet [place] [place] DVT ppx: SQH GI ppx: Protonix PT/OT consult ?? Code Status:Attempt Cardiopulmonary Resuscitation - Inpatient ?? Dispo- floor, possible discharge tomorrow Hong Levi MD Internal Medicine PGY3 Cardiology M1-S2 Team Pager [phone] Associated attestation - Abiodun Chun MD - [...] AF who presented as a transfer from [facility] for acute cholecystitis with a course complicated [...] appropriate mood and affect Labs: Recent Labs 04/24/2045704/23/2022404/22/20 1405 WBC 12.2* 10.0* 12.6* HGB 10.1* 8.9* 9.5* HCT 31.2* 27.4* 29.3* PLATELET 375* 360* 340 Recent Labs 04/23/2022404/22/20 03504/21/20 0330 INR 1.3 1.2 1.2 Recent Labs 04/24/2045704/23/20 1340 04/23/2022404/22/20 0350 NA 143 -- 142 -- 139 K 3.3* 3.7 3.3* < > 3.2* CL 108* -- 106 -- 103 CO2 22 -- 24 -- 24 BUN 25* -- 32* -- 34* CREATININE 0.74 -- 0.96 -- 1.10 < > = values in this interval not displayed. Recent Labs 04/24/2045704/23/2022404/22/20 0350 04/20/20 0243 AST 14 17 19 < > Not Perf 18 ALT 16 19 20 < > Not Perf 22 ALKPHOS 243* 227* 245* < > Not Perf 139* BILITOT 0.4 0.5 0.6 < > Not Perf 1.5* BILIDIR -- -- -- -- 0.5* < > = values in this interval not displayed. Recent Labs 04/24/2045704/23/2022404/22/20 0350 04/20/20 0243 CALCIUM 8.7 8.4* 8.4* [...] tomorrow Julianna Hendrix MD PGY-1 Team Pager [phone] Associated attestation - Abiodun Chun MD - [...] 04/19/2020 Diet: Daily Healthy Menu Choices/Cardiac diet [place] [place] Code: Attempt Cardiopulmonary Resuscitation - Inpatient Room: CV21/CV21-A ID: Shannan Chaudhary ( ) is a 79 y.o. female with a history of HTN, HLD, severe and possible afib, who was transferred from [facility] to the SICU for acute cholecystitis. Her course was complicated by NSTEMI, afib with RVR causing hypotension in the setting of , hypoxic respiratory failure with increasing O2 requirements which prompted heart cath and transfer to [facility] care. Operative Procedures: 04/21/2020 Procedure(s): [...] add comments as necessary): abd/pelvis; Sending Institution [facility]; Date of exam 20200418; I believe a [...] Surgery -Diet: Daily Healthy Menu Choices/Cardiac diet ([facility] [place] /FEN: Keep roque, monitor UOP. K of [...] (records unavailable in eDH but reviewed by [facility] referring MD) who is admitted in transfer [...] w/ severe (valve area 0.8) transferred [place] [facility] [place] cholecystitis. She has undergonePCI of [...] F with DM and HTN--- txf from [facility] with cholecystitis, AF with RVR, hypoxia, and concern for severe . Cath showed not severe, high grade ostial RCA stented, AF converted spontaneously ??? Atrial fibrillation--- paroxysmal ??? Cholecystitis Resolved Hospital Problems No resolved problems to display. Active Hospital Problems Diagnosis ??? 79 yo F with DM and HTN--- txf from [facility] with cholecystitis, AF with RVR, hypoxia, and concern for severe . Cath showed not severe, high grade ostial RCA stented, AF converted spontaneously ??? Atrial fibrillation--- paroxysmal ??? Cholecystitis Resolved Hospital Problems No resolved problems to display. ID: Ms. Chaudhary is a 79F with a PMH of HTN, HLD, DM, possible history of AF who presented as a transfer from [facility] for acute cholecystitis with a course complicated [...] appropriate mood and affect Labs: Recent Labs 04/23/20 02204/22/20 1405 04/22/20 0350 WBC 10.0* 12.6* 13.5* HGB 8.9* 9.5* 8.6* HCT 27.4* 29.3* 26.8* PLATELET 360* 340 313 Recent Labs 04/23/20 02204/22/20 0350 04/21/20 0330 INR 1.3 1.2 1.2 Recent Labs 04/23/20 0225 04/22/20 1745 04/22/20 0350 04/21/20 2200 NA 142 -- 139 138 K 3.3* 3.4* 3.2* 3.6 CL 106 -- 103 102 CO2 24 -- 24 24 BUN 32* -- 34* 31* CREATININE 0.96 -- 1.10 1.00 Recent Labs 04/23/20 02204/22/20 0350 04/21/20 0330 04/20/20 0243 AST 17 19 38* Not Perf 18 ALT 19 20 29 Not Perf 22 ALKPHOS 227* 245* 257* Not Perf 139* BILITOT 0.5 0.6 1.0 Not Perf 1.5* BILIDIR -- -- -- 0.5* Recent Labs 04/23/2022404/22/20 0350 04/21/20 2200 04/21/20 0330 04/20/20 0243 [...] floor Julianna Hendrix MD PGY-1 Team Pager [phone] Associated attestation - Abiodun Chun MD - [...] (records unavailable in eDH but reviewed by [facility] referring MD) who is admitted in transfer [...] w/ severe (valve area 0.8) transferred [place] [facility] [place] chole[place]is. She has undergonePCI of [...] and possible afib, who was transferred from [facility] to the SICU for acute cholecystitis. Her course was complicated by NSTEMI, afib with RVR causing hypotension in the setting of , hypoxic respiratory failure with increasing O2 requirements which prompted heart cath and transfer to [facility] care. Operative Procedures: 04/21/2020 Procedure(s): [...] add comments as necessary): abd/pelvis; Sending Institution [facility]; Date of exam 20200418; I believe a [...] to the planned procedure. Hand Hygiene: The independent film maker did perform hand hygiene prior to arterial [...] DO - 04/22/2020 8:10 AM EDT Interventional Acquisition Marketing Manager Note 79 year old female with moderate [...] plavix. Cardiac rehab consult in place. Sandy Camargo DO Interventional Acquisition Marketing Manager * Darwin Connors MD - 04/22/2020 7:12 AM EDT Inpatient Cardiology Progress Note Hospital Day 3 days Active Hospital Problems Diagnosis ??? 79 yo F with DM and HTN--- txf from [facility] with cholecystitis, AF with RVR, hypoxia, and concern for severe . Cath showed not severe, high grade ostial RCA stented, AF converted spontaneously ??? Atrial fibrillation--- paroxysmal ??? Cholecystitis Resolved Hospital Problems No resolved problems to display. Active Hospital Problems Diagnosis ??? 79 yo F with DM and HTN--- txf from [facility] with cholecystitis, AF with RVR, hypoxia, and concern for severe . Cath showed not severe, high grade ostial RCA stented, AF converted spontaneously ??? Atrial fibrillation--- paroxysmal ??? Cholecystitis Resolved Hospital Problems No resolved problems to display. ID: Ms. Chaudhary is a 79F with a PMH of HTN, HLD, DM, possible history of AF who presented as a transfer from [facility] for acute cholecystitis with a course complicated [...] Ins/Outs: Intake/Output Summary (Last 24 hours) at 04/22/20202223 Last data filed at 04/22/20201999 Gross per [...] care Julianna Hendrix MD PGY-1 Team Pager [phone] Cardiology Attending Note I have seen and [...] (cmH20): 6 FiO2 (%): (S) 100 %(for collaborative physician procedure) NIV Measurements: Resp: 23 Mve: 24.8 [...] Weaned FiO2 to 35%. Brought pt to laundry laborer @ 1530 on NRB. Placed on BiPAP [...] Events: TTE yesterday, decision to go to collaborative physician today with surgical plan pending outcome Assessment, [...] -- No results for input(s): PHART, PO2ART, TTV4BCH, LACTATEART, BEART in the last 72 hours. [...] Body mass index is 37.11 kg/m??. 04/19 0701 - 04/20 0700 In: 295 [I.V.:295] Out: 250 [Urine:250] General: [...] -- No results for input(s): PHART, PO2ART, XTG1ESP, LACTATEART, BEART in the last 72 hours. [...] (records unavailable in eDH but reviewed by [facility] referring MD) who is admitted in transfer [...] w/ severe (valve area 0.8) transferred [place] [facility] [place] acute cholecystitis undergoing cardiacwork-up/optimization for potential [...] all questions were answered. [facility] input/assistance greatly appreciated Hong Rosenthal MD [...] at bedside from 0220 through transfer to [facility]. Life safety paged for assistance when BP began to decline rapidly. See life safety note for details. Critical care also at beside. Roxy Cordon RN * Sophia Ellington RN - 04/20/2020 6:58 AM EDT Patient transferred from [address] [facility]. HR afib 160s, arden running @ 50. CCS at bedside performing bedside echo, around 0600 pt. Self converted into NSR 80- 90s and arden weaned off. * Tiesha Morgan MD - 04/20/2020 5:07 AM EDT Patient with aortic stenosis with valve area 0.8 (no echo result documented) and acute cholecystitis, [place] [facility] [place]. Plan was cardiology pre-op [...] 3999 at bedside for eval. Discussed with travel registered nurse pacu, who recommended PO metop tartrate 25 mg [...] 04/19/2020 1:45 PM EDT Patient arrived from [facility] via ambulance. Received report from Rhina. Pt alert and oriented x4. Pt reports pain /10. Pt denies any chest pain, shortness [...] from the original note were not included. Hospital Medicine - Admission History & Physical - RED Team, Pager [phone] Chief Complaint: liver abscess History of Present Illness: Shannan Chaudhary is a 79 y.o. female with history of IDDM last A1c 8.5(03/2020), HTN, HLD, moderate-severe who presents with cholecystitis. The patient first began to have a feeling of pain in her right upper quadrant on 04/12, and presented to [facility] ED on 04/18 and found to have a TBili of 2.2 and WBC of 17; alk phos 148, AST/ALT unremarkable, Cr 1.37. Pt CTAP from [facility] revealed a hydropic gallbladder with thickening and [...] on a nitro drip and transferred to [facility]. 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 Pt previously had been fully functional and [...] on phone: None Gets together: None Attends amish service: None Active member of club or [...] Body Fluid Culture, Aerobic & Anaerobic Fluid [[id number]] Collected: 04/28/20 1000 Lab Status: In process Specimen: Fluid Updated: 04/28/20 1124 Body Fluid Culture, Aerobic [[id number]] Collected: 04/28/20 1000 Lab Status: Preliminary result Specimen: Fluid Updated: 04/28/20 1124 Gram Stain -- Few Neutrophils seen No microorganisms seen. Body Fluid Culture, Aerobic & Anaerobic Bile [[id number]] (Abnormal) Collected: 04/22/20 1550 Lab Status: Final result Specimen: Bile Updated: 04/26/20 1544 Body Fluid Culture, Aerobic [[id number]] (Abnormal) (Susceptibility) Collected: 04/22/20 155 Lab Status: Final result Specimen: Bile Updated: [...] using in critically ill patients. Anaerobic Culture [[id number]] Collected: 04/22/20 1550 Lab Status: Final result [...] # 2v CAD, s/p RCA stents on 08/26 # NSTEMI, likely type II - demand [...] Routine Diet: Daily Healthy Menu Choices/Cardiac diet [place] CHO cont DVT prophylaxis: apixaban Fluids: PO Access: PIV Dispo: transfer to 4600 Code: Attempt Cardiopulmonary Resuscitation - Inpatient Wilner Esparza MD PGY-1, Internal Medicine 04/28/2020 Red Team Pager - [phone] Associated attestation - Dale Gonzáles MD - [...] of two midnights or is on the [facility] inpatient only procedure list (status C) due [...] this plan as well tomorrow. * Jos Collins DO - 04/28/2020 9:24 AM EDT INTERVENTIONAL [...] is a 79 y.o. female [place] [facility] [place] and subsequently found to [...] Tube Placement 04/22/2020 Jos Collins P, DO [facility] INTERVENTIONL RAD Medications: No current facility-administered [...] file Gets together: Not on file Attends amish service: Not on file Active member of [...] procedure) Assessment: 79 y.o. female transferred [place] [facility] [place] acute cholecystitis and subsequently found to [...] is a 79 y.o. female transferred to [facility] [place] acute chole[place]stitis and subsequently found to [...] Tube Placement 04/22/2020 Jos Collins P, DO [facility] INTERVENTIONL RAD Medications: No current facility-administered [...] mL 2 ??? blood sugar diagnostic strips (SnowShoe StampTOUCH ULTRA TEST) Strip 1 each by Other [...] file Gets together: Not on file Attends amish service: Not on file Active member of [...] procedure) Assessment: 79 y.o. female transferred [place] [facility] [place]ole[place]is and subsequently found to [...] is a 79 y.o. female transferred to [facility] [place] acute chole[place]stitis and subsequently found to [...] diabetes mellitus without mention of complication, uncontrolled [id number] ??? Hypertension I10 ??? Hyperlipidemia E78.5 ??? [...] NIGHTLY 90 tablet 0 ??? Blood-Glucose Meter Mis One Touch Ultra Brand, 250.02. 1 each 0 ??? Lancets [facility] Use twice daily or as needed. 200 [...] file Gets together: Not on file Attends amish service: Not on file Active member of [...] is a 79 y.o. female transferred [place] [facility] [place]ole[place]is and subsequently found to [...] PCP: Reshma Baig MD PCP phone #: [phone] ID/Chief Complaint: Ms. Chaudhary is a 79F with a PMH of HTN, HLD, DM, possible history of AF who presented as a transferfrom [facility] for acute cholecystitis with a course complicated by afib with RVR and hypotension now transferring to the Cardiology service due to severe (CORINE 0.8 at OSH) with consideration of direct i ntervention. History of Present Illness: Patient transferred from [facility] on 04/19 for cardiac preop eval due [...] Dr. Patel, patient was taken to the collaborative physician for RHC and evaluation. In the collaborative physician she was found to have two vessel [...] patient was then transferred back to the [facility]. On conference between the General [...] the number below. Electronically signed by: Harris Shepard, [facility] ([phone]), at 04/19/2020 4:27 PM XR Chest One [...] the number below. Electronically signed by: Dylan Kinsey, [facility] ([phone]), at 04/21/2020 6:22 AM CXR compared to [...] PLAN: Transfer to Cardiology S1 service, Pager [phone] # NSTEMI, s/p stenting of RCA osteal [...] Rodríguez MD, PGY-1 Cardiology M1-S2, Team Pager [phone] 04/21/2020 Cardiology Attending Note I have seen [...] type 2 DM who was admitted to [facility] due to cholecystitis with plan for cardiology [...] NIGHTLY 90 tablet 0 ??? Blood-Glucose Meter Mis One Touch Ultra Brand, 250.02. 1 each 0 ??? Lancets Mis Use twice daily or as [...] file Gets together: Not on file Attends amish service: Not on file Active member of [...] 1 Carmelo Burns MD 04/20/2020 * Magdalene Lopez MD - 04/19/2020 5:24 PM EDT [facility] Acute Care Surgery Admission H&P History of Present Illness: Shannan Chaudhary is a 79 y.o. female with PMH IDDM and reported aorticstenosis with valve area 0.8 (records unavailable in eDH but reviewed by [facility] referring MD) who is admitted in transfer [...] the subsequent days and she presented to [facility] ED yesterday (Sunday). There her tBili was [...] file Gets together: Not on file Attends amish service: Not on file Active member of [...] OSH with cholecystitis who was transferred [place] [facility] due to increased cardiac risk associated with [...] last Sunday, was noted on imaging at [facility] to have a hydropic gallbladder withthickening and [...] Outcome: Ongoing (Interventions Implemented as Appropriate) 05/06/20 11105/07/20204805/08/20 001 Daily Care Interventions Self-Care Promotion -- BADL [...] Control Outcome: Ongoing (Interventions Implemented as Appropriate) 05/07/20204805/08/20 001 Safety Interventions Isolation Precautions -- standard precautions maintained Infection Prevention -- single patient room provided Coping Strategies Supportive Measures active listening utilized;self-care encouraged;verbalization of feelings encouraged -- Goal: Discharge Needs Assessment Outcome: Ongoing (Interventions Implemented as Appropriate) 04/19/20 1810 04/20/20 1537 05/08/20 0112 Discharge Needs Assessment Concerns To Be Addressed [...] toward outcome * Plan of Care - Kristi Gallegos RN - 05/07/2020 3:48 PM EDT [...] guard placed. 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 Left IV dressing changed. Patient went for [...] ADLs]: Hands on Surveillance [continuous indirect monitoring]: [place], purposeful rounding, room near unit station,call aguilar [...] pain. BM x3 of black tarry stool, made aware and Eliquis held per MD [...] OUTCOME EVALUATION NOTE: ?? OUTCOME SUMMARY: Shannan Chaudhary's vital signs stable. Patient is Alert. [...] Ongoing (Interventions Implemented as Appropriate) 05/03/20 1415 05/03/20 1957 05/03/202010 Daily Care Interventions Self-Care Promotion -- BADL [...] Ongoing (Interventions Implemented as Appropriate) 05/01/20 0559 05/03/20 0800 Coping/Psychosocial Plan Of Care Reviewed With [...] OUTCOME EVALUATION NOTE: ?? OUTCOME SUMMARY: Shannan Chaudhary's vital signs stable. Patient is Alert. [...] [continuous indirect monitoring]: Room near nurses station, masimo Patient-specific fall prevention interventions for sensory [...] and heme + results. Pt NPO at [facility] for EGD tmr. Pt denies abdominal pain, [...] file Gets together: Not on file Attends amish service: Not on file Active member of [...] Dr. Graf. Mauro Patel MD Gastroenterology Fellow #[id number] Attending Addendum: I interviewed and examined the patient with Dr. Patel on rounds. I confirm the history and sanchez physical findings outlined in this note. The assessment and plan were formulated in discussion with me at the time of this encounter, and I agree with them as documented. Brigitte Graf MD Gastroenterology and hepatology Pager: [phone] * Plan of Care - Jeevan Curiel RN - 05/02/2020 1:36 AM EDT Problem: Patient Care Overview Goal: Plan of Care Review Outcome: Ongoing (Interventions Implemented as Appropriate) 05/01/20 0559 05/01/202018 Coping/Psychosocial Plan Of Care Reviewed With -- patient Plan of Care Review Progress progress toward functional goals as expected -- OUTCOME EVALUATION NOTE: OUTCOME SUMMARY: Shannan Chaudhary's vital signs stable. Patient is Alert. [...] Surveillance [continuous indirect monitoring]: Room near nurses [facility] Patient-specific fall prevention interventions for sensory deficits provided, if applicable: [X] N/A CPG GOAL OUTCOME EVALUATION: Goals of care plan--ongoing Goal: Fall Prevention-Safe Patient Handling Outcome: Ongoing (Interventions Implemented as Appropriate) 05/01/20 02105/01/20 1000 05/01/202018 Daily Care Interventions Self-Care Promotion [...] Assistive Device Utilized front-wheel walker -- -- 05/01/202199 Daily Care Interventions Self-Care Promotion -- Campos [...] Review Outcome: Ongoing (Interventions Implemented as Appropriate) 05/01/2055805/01/20 09 Coping/Psychosocial Plan Of Care Reviewed With -- [...] Outcome: Ongoing (Interventions Implemented as Appropriate) 04/29/20 5418 Coping/Psychosocial Plan Of Care Reviewed With patient [...] Handling Outcome: Ongoing (Interventions Implemented as Appropriate) 04/28/20202904/29/20212904/29/202199 Daily Care Interventions Self-Care Promotion independence encouraged [...] CONSULTATION NOTE Patient ID: Shannan Chaudhary Room: [address] [place] [address]- Reason for Consult: liver abcess Consulting Service: Hospital Medicine Consulting Attending: Dale Dash MD Admission Date: 04/19/2020 History of Present Illness: 79 y.o. female with a history of DM2 (A1C 8.5%), severe who was admitted for sepsis secondary tocholecystitis. Due to her severe she was not a surgical candidate at her institution so was sent to [facility] [place]. She underwent pre-operative cardiac angiogram [...] DRAINAGE 04/28/2020 CT Guided Drain Peritoneal 04/28/2020 [facility] RAD CAT SCAN ??? HYSTERECTOMY, VAGINAL ??? IR CHOLECYSTOSTOMY TUBE PLACEMENT 04/22/2020 IR Cholecystostomy Tube Placement 04/22/2020 Jos Collins, DO [facility] INTERVENTIONL RAD Medications: ??? apixaban (Eliquis) [...] immunocompromising conditions Social History: Lives alone in [place], [place] but has family members who live [...] collapsible closed device (Active) Laboratory: Recent Labs 04/29/207 04/28/20 0405 04/27/20 0441 WBC 18.0* 14.8* 15.1* HGB 9.8* 10.5* 10.3* HCT 30.1* 32.5* 32.1* PLATELET 397* 421* 422* Recent Labs 04/29/20 0417 04/28/20 0405 04/27/20 0441 NA 136 137 138 K 3.9 3.5 3.5 CL 103 105 103 CO2 22 21* 23 BUN 28* 16 12 CREATININE 0.96 0.80 0.63* Recent Labs 04/29/207 04/28/20 0405 04/27/20 0441 AST 15 12 12 ALT 16 12 13 ALKPHOS 177* 201* 230* BILITOT 0.5 0.4 0.5 Microbiology: Microbiology Results (Last 30 days) Procedure Component Value Units Date/Time Body Fluid Culture, Aerobic & Anaerobic Fluid [[id number]] (Abnormal) Collected: 04/28/20 1000 Lab Status: Preliminary result Specimen: Fluid Updated: 04/29/20 1409 Body Fluid Culture, Aerobic [[id number]] (Abnormal) Collected: 04/28/20 1000 Lab Status: Preliminary result Specimen: Fluid Updated: 04/29/20 1316 Body Fluid Culture One colony of Raoultella ornithinolytica (Klebsiella ornithinolytica) Gram Stain -- Few Neutrophils seen No microorganisms seen. Anaerobic Culture [[id number]] Collected: 04/28/20 1000 Lab Status: Preliminary result Specimen: Fluid Updated: 04/29/20 1409 Anaerobic Culture No anaerobic organisms isolated to date Body Fluid Culture, Aerobic & Anaerobic Bile [[id number]] (Abnormal) Collected: 04/22/20 1550 Lab Status: Final result Specimen: Bile Updated: 04/26/20 1544 Body Fluid Culture, Aerobic [[id number]] (Abnormal) (Susceptibility) Collected: 04/22/20 1550 Lab Status: [...] using in critically ill patients. Anaerobic Culture [[id number]] Collected: 04/22/20 1550 Lab Status: Final result Specimen: Bile Updated: 04/26/20 7337 Anaerobic Culture No anaerobic organisms isolated Radiology/Studies/Procedures: [...] contact us if further consultation required. Veda Avila, DO Infectious Diseases Fellow- PGY4 Pager: [phone] 04/29/2020 6:23 PM Associated attestation - Harris [...] type 2 DM who was transferred [place] [facility] [place] for cardiology evaluation and surgical planning in the setting of acute cholecystitis. Reviewing her hospital course, she developed Afib with RVR complicated by hypotension and hypoxic respiratory failure on 04/20/20, she was taken to the collaborative physician on 04/21/20 whereshe had a RCA stent [...] Review Outcome: Ongoing (Interventions Implemented as Appropriate) 04/26/20174404/29/20 08 Coping/Psychosocial Plan Of Care Reviewed With [...] Control Outcome: Ongoing (Interventions Implemented as Appropriate) 04/29/2059904/29/20 08 Safety Interventions Isolation Precautions standard precautions [...] 1537 Interdisciplinary Rounds/Family Conf Participants patient;nursing;physician * Plan of Care - Carla Howell RN - 04/29/2020 3:10 AM EDT Problem: Patient Care Overview Goal: Plan of Care Review Outcome: Ongoing (Interventions Implemented as Appropriate) 04/26/20 17404/28/202029 Coping/Psychosocial Plan Of Care Reviewed With -- [...] Handling Outcome: Ongoing (Interventions Implemented as Appropriate) 04/28/20202904/29/20199 Daily Care Interventions Self-Care Promotion independence encouraged [...] Control Outcome: Ongoing (Interventions Implemented as Appropriate) 04/28/20202904/29/20199 Safety Interventions Isolation Precautions -- standard precautions [...] Ongoing (Interventions Implemented as Appropriate) 04/26/20 1745 04/28/20 0800 Coping/Psychosocial Plan Of Care Reviewed With -- patient Plan of Care Review Progress improving -- OUTCOME EVALUATION NOTE: OUTCOME SUMMARY: Patient had a right sided arabella-hepatic drain today and has a SIS carmen. Patient's peritoneal drain continurs to put out [...] Outcome: Ongoing (Interventions Implemented as Appropriate) 04/27/20202904/28/20 08 Daily Care Interventions Self-Care Promotion independence [...] Control Outcome: Ongoing (Interventions Implemented as Appropriate) 04/28/2059904/28/20 08 Safety Interventions Isolation Precautions standard precautions [...] (CPG) Outcome: Ongoing (Interventions Implemented as Appropriate) 04/26/201744 Skin Integrity Impairment, Risk/Actual Skin Integrity Impairment, Risk/Actual: Related Risk Factors age extremes;metabolic imbalance Goal: Skin Integrity/Wound Healing Patient will demonstrate the desired outcomes by discharge/transition of care. Outcome: Ongoing (Interventions Implemented as Appropriate) 04/26/201744 Skin Integrity Impairment, Risk/Actual (Adult) Skin Integrity/Wound Healing making progress toward outcome * Plan of Care - Carla Howell RN - 04/28/2020 4:23 AM EDT Problem: Patient Care Overview Goal: Plan of Care Review Outcome: Ongoing (Interventions Implemented as Appropriate) 04/26/20174404/27/202029 Coping/Psychosocial Plan Of Care Reviewed With -- [...] Ongoing (Interventions Implemented as Appropriate) 04/27/20202904/28/20 0324 Daily Care Interventions Self-Care Promotion independence encouraged [...] Outcome: Ongoing (Interventions Implemented as Appropriate) 04/26/20 2301 Coping/Psychosocial Plan Of Care Reviewed With patient [...] RN - 04/26/2020 10:51 AM EDT Shannan Tito Chaudhary was seen today by Cardiac Rehabilitation [...] in an outpatient cardiac rehabilitation program at [facility] was discussed. Patient agrees to a referral [...] Review Outcome: Ongoing (Interventions Implemented as Appropriate) 04/24/20 1823 Coping/Psychosocial Plan Of Care Reviewed With patient [...] are placed. Patient requests referral to :: [facility]. PHONE: [phone] FAX: [phone] Expected date of discharge:next 24-48 hours Referral routed to the Double Back Operator for matching with agency/vendor and to provide any required information. * Op Note - Esau Rahman MD - 04/21/2020 6:14 PM EDT [facility] Operative Note Patient Name: Shannan Chaudhary : [id number] MR#: [id number] Case Date: 04/21/2020 Surgeon: Surgeon(s) and Role: * Esau Rahman MD - Primary * Sandy Camargo, DO - Fellow Preoperative diagnosis: ?CAD Postoperative diagnosis: Successful PCI with 2 SYNERGY stents Note cardiac output normal, and mean gradient across aortic valve 20 mmHg ASA loaded prior to case, plavix 600 mg load given in the collaborative physician I spoke with Dr Garrison. Tentative plan [...] evident early complications. Results discussed with referring remote control assembler, service remote control assembler, and with the patient and theirfamily. A [...] is fair OUTCOME EVALUATION NOTE: OUTCOME SUMMARY: Tile Mechanic assumed care of pt at 07:30. Pt [...] Esau Rahman MD MPH Structural Interventional Cardiology [place] [id number] , #5 Overall clinical summary: ?? This [...] to admission. She had not seen a remote control assembler previously. Pertinent past history: Active Hospital Problems [...] tablet 37.5 mg 37.5 mg Oral Q6H [facility] Carol Reyna MD ??? sodium chloride 0.9 [...] injection 5,000 Units 5,000 Units Subcutaneous Q8H [facility] Jayashree Keenan MD 5,000 Units at 04/20/20 [...] injection 1-4 Units 1-4 Units Subcutaneous Q4H [facility] Jayashree Keenan MD ??? insulin glargine VIAL injection 25 Units 25 Units Subcutaneous Nightly Jayashree Keenan MD 25Units at 04/19/208 ??? sodium chloride 0.9% infusion 50 mL/hr [...] questions, please feel free to contact me: [phone] #5 (traveling secretary Bert Ortega, and he will have me paged) or [email or web address]. Shannan Chaudhary 04/20/2020 Referring Providers: MD Alonzo Mcdonald, Bethany Francis MD [address] [place] [address] [address] [place] [address] ESAU RAHMAN MD 04/20/2020 TESTING: Recent Results [...] QTC Calculated (Bezet) 474 ms Calculated P [place] 59 degrees Calculated R [place] 26 degrees Calculated T [place] 2 degrees INTERPRETATION Normal sinus rhythm Right bundle branch block Abnormal ECG No previous ECGs available POCT Glucose Result Value Ref Range POC Glucose 112 65 - 199 mg/dL EKG 12 Lead Result Value Ref Range Ventricular rate 168 BPM Atrial Rate 174 BPM QRS Duration 128 ms Q-T Interval 288 ms QTC Calculated (Bezet) 481 ms Calculated R [place] 82 degrees Calculated T [place] -18 degrees INTERPRETATION Atrial fibrillation with rapid [...] mg/dL Lactate, whole blood, send to lab ([facility] Result Value Ref Range Lactate WB 1.6 0.5 - 2.2 mmol/L POCT Glucose Result Value Ref Range POC Glucose 128 65 - 199 mg/dL Echocardiogram Transthoracic([facility]) Result Value Ref Range EF 59 Troponin Result Value Ref Range Troponin-T 0.22 (H) 0.00 - 0.00 ng/mL EKG 12 Lead Result Value Ref Range Ventricular rate 77 BPM Atrial Rate 77 BPM P-R Interval 160 ms QRS Duration 120 ms Q-T Interval 406 ms QTC Calculated (Bezet) 459 ms Calculated P [place] 48 degrees Calculated R [place] 27 degrees Calculated T [place] 18 degrees INTERPRETATION Sinus rhythm with marked [...] -- -- -- -- 04/20/20 0511 (!) 94/25 -- -- -- -- -- -- -- [...] -- -- -- -- -- -- 04/20/20 0430 100/49 -- -- -- -- -- -- -- 04/20/20 0428 100/49 -- -- -- -- -- -- [...] Oral -- 18 91 % -- -- 04/19/201950 117/62 37 ??C (98.6 ??F) Oral -- [...] tablet 37.5 mg 37.5 mg Oral Q6H [facility] Carol Reyna MD ??? sodium chloride 0.9 [...] injection 5,000 Units 5,000 Units Subcutaneous Q8H [facility] Jayashree Keenan MD 5,000 Units at 04/20/20 [...] injection 1-4 Units 1-4 Units Subcutaneous Q4H [facility] Jayashree Keenan MD ??? insulin glargine VIAL injection 25 Units 25 Units Subcutaneous Nightly Jayashree Keenan MD 25Units at 04/19/202047 ??? sodium chloride 0.9% infusion 50 mL/hr Intravenous Continuous Carol Reyna MD 50 mL/hr at 04/20/20 1400 50 mL/hr at 04/20/20 1400 No current Epic-ordered outpatient medications on file. * Initial Assessments [...] date and time: COVID-19 TESTING 04/18 Order: [id number] (suggestion) Information displayed in this report will [...] HC and that a copy is at [facility]. If AD's have not been completed adult children would be surrogate decision maker per [place] surrogate decision making law. Any patient receiving care at [facility] must abide by [place] law. The hierarchy for surrogate decision making [...] (i) The agent with financial power of sofa back upholsterer or a conservator appointed in accordance with RSA 464-A. (j) The guardian of the patient???s estate. Current Coping/Education/Information Needs: Coping well with hospital stay and feels updated on issues and plan. Current Functional Ability: Currently in [facility]. Having chest pain and RN notifying MD. Awaiting surgery once cleared by cardiology Functional Status Prior to Admission: States she is independent and active. 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 Is driving and able to walk good distances. Home Environment: Lives in 4 story home with bed and bath on first level. Stairs are not an issue for her. There are no stairs to enter. Social & Family Supports/Community Resources: Has 2 sons and a daughter-one son and daughter live nearby and other son is in [place]. All able to assist if needed. Behavioral [...] Specific Information: n/a Health/Prescription Coverage: Primary Insurance: [employer] [place] Secondary Insurance: N/A Prescription Coverage: yes Preferred Pharmacy: [facility] Other: n/a Primary Care Provider: Reshma Baig MD [phone] Patient/Caregiver Goals of Treatment: home with no needs once medically ready Potential Needs for Transition of Care: Rehab/SNF: n/a Home Health: n/a DME: n/a Dialysis: n/a Community Resources: n/a Transportation: son Darwin will take her home Other: n/a Anticipated Barriers to Discharge/Special Considerations: none Assessment: Independent woman admitted for chloycystectomy And found to have A FIb with RVR. Has insurance through [employer] with prescription coverage. Has accessible home and support of adult children. States she has advanced directives and we do not have a copy. Plan: Home no needs once medically ready. Have asked OCM to call [facility] for copy of AD. A member of the Care Management team will continue to monitor progress, follow for continuity of care and assist with transition of care planning. RESHMA ALLRED RN Pager: [phone] * Consult Note - Lisbeth Cain MD - 04/20/2020 10:04 AM EDT Images from the original note were not included. Inpatient Cardiology Consult Note Date of Consultation: 04/20/2020 Admit Date: 04/19/2020 Place of Service: [facility] Consult Attending: Dr. Cain [facility] Day 1 day Reason for Consult: Pre-operative [...] to the hospital as a transfer from [facility] for acute cholecystitis with pain since Sunday. [...] walk up a flight of stairs, do acetylene cutter and other activities without being limited by [...] (23 ml/m2). Nicole: 0.66% risk of perioperative GA or cardiac arrest Geriatric-sensitive RCRI: 2.1% probability of perioperative GA or cardiac arrest Assessment: Ms. Chaudhary is a 79 year old woman with a history of HTN, HLP, DM, severe (CORINE 0.8 at OSH) - asymptomatic, possible history of AF who presented to the hospital as a transfer from [facility] for acute cholecystitis with pain since Sunday. [...] cardioversion (though she is not anticoagulated) -Recommend detention anticoagulation for her AF but this can be deferred at the moment Will continue to follow, page with questions. Anam Cazares MD Acquisition Marketing Manager PGY-5 04/20/2020 Page [phone] The indications, expected benefits, and potential risks [...] interactive; HR remained 140s. Patient moved to [facility] (Red), no events en route, report given to RN. Plan: ECG obtained, metoprolol given, phenylephrine initiated Transfer to Critical Care: ICUS PIPER KHAN, LYLA 6:13 AM April 20, 2020 documented in [...] 6:45 AM EDT DIFFERENTIAL, AUTOMATED Routine 05/07/20 20 6:45 AM EDT HC CBC,PLT & AUTO DIFF Routine 0 6:45 AM EDT HC MAGNESIUM, SERUM Routine 05/07/2020 6 :45 AM EDT BASIC METABOLIC PANEL (NON-FASTING) Routine 05/07/2020 6:45 AM EDT POCT GLUCOSE Routine 05/07/2020 4:11 AM EDT POCT GLUCOSE Routine 05/06/2020 11:36 PM EDT POCT GLUCOSE Routine 05/06/2020 8:28 PM EDT HEMOGRAM Routine 05/06/2020 5:36 PM EDT DIFFERENTIAL, AUTOMATED Routine 05/06/20 20 5:36 PM EDT HC VENIPUNCTURE Routine 05/06/2020 [...] 7:34 AM EDT DIFFERENTIAL, AUTOMATED Routine 05/05/20 7:34 AM EDT HC VENIPUNCTURE Routine 05/05/2020 [...] 5:18 AM EDT DIFFERENTIAL, AUTOMATED Routine 05/04/20 5:18 AM EDT HC VENIPUNCTURE Routine 05/04/2020 [...] 11:45 AM EDT Upper GI Endoscopy, Diagnostic (61046) 05/03/2020 10:28 AM EDT egd UPPER GI ENDOSCOPY Routine 05/03/2020 9: 48 AM EDT POCT GLUCOSE Routine 05/03/2020 7:50 AM EDT HEMOGRAM Routine 05/03/2020 5:08 AM EDT DIFFERENTIAL, AUTOMATED Routine 05/03/20 5:08 AM EDT HC CBC,PLT & AUTO [...] 3:50 AM EDT DIFFERENTIAL, AUTOMATED Routine 04/22/20 3:50 AM EDT HC PROTHROMBIN TIME Routine [...] 4:44 PM EDT CARDIAC CATHETERIZATION Routine 04/21/20 4:08 PM EDT POCT GLUCOSE Routine 04/21/2020 [...] EDT LACTATE, WHOLE BLOOD, [place] [place] [place] Routine 04/20/2020 5:25 AM EDT POCT GLUCOSE [...] The procedure was performed under fluoroscopic guidance. Appellate [employer] fluoroscopic images of the right upper quadrant [...] POC Glucose 195 65 - 199 mg/dL [facility] Comment: Supplemental ranges: <140 mg/dL before meals <180 mg/dL all other times of the day Blood specimen (specimen) 05/08/2020 11:10 AM EDT 05/08/2020 11:10 AM EDT Kota Gonzales MD POINT OF CARE TEST O ISAIAH Performing Organization Address [facility] [address] [facility] Co de Phone Number [facility] [place] [place] [address] * POCT Glucose (05/08/2020 6:51 AM EDT) POC Glucose 144 65 - 199 mg/dL [facility] Comment: Supplemental ranges: <140 mg/dL before meals <180 mg/dL all other times of the day Blood specimen (specimen) 05/08/2020 6:51 AM EDT 05/08/2020 6:51 AM EDT Milagros Velazquez MD POINT OF CARE TEST O ISAIAH Performing Organization Address City/[facility] [address]/ZIP Co de Phone Number [facility] [place] [place] [address] * Differential, Automated (05/08/2020 5:46 AM EDT) Neutrophils % 60.5 % [facility] Neutr Abs (ANC) 5.19 1.70 - 6.10 x10(3)/[facility]ATORY Lymphocytes % 28.3 % [facility] Lymphocytes Abs 2.4 0.9 - 3.2 x10(3)/[facility]ORATORY Monocytes % 5.8 % [facility] Monocyte Abs 0.5 0.3 - 0.9 x10(3)/[facility] Eosinophils % 3.4 % [facility] Eosinophils Abs 0.3 0.0 - 0.4 x10(3)/[facility]OR[facility]ORY Basophils % 1.5 % [facility] Basophils Abs 0.1 0.0 - 0.1 x10(3)/[facility]ORATORY Immature Gran % 0.50 % [facility] Comment: Immature granulocytes(IG's)percentage and absolute count will include metamyelocytes, myelocytes, and promyelocytes. Blood smears from CBCs yielding IG's will be scanned manually for concordance. If this scan disagrees with the automated IG or if promyelocytes are noted, a manual differential will be performed. Nanci Gran Abs 0.04 0.00 - 0.04 x10(3)/[facility] Blood specimen (specimen) 05/08/2020 5:46 AM EDT 05/08/2020 6:21 AM EDT Narrative Resulting Agency Comment Spec In Lab Wilner Esparza MD HEMATOLOGY ORDERABLE S [facility] [place] [address] * (ABNORMAL) Hemogram (05/08/2020 5:46 AM EDT) WBC 8.6 4.0 - 9.5 x10(3)/[facility]ORATORY RBC 3.17(L) 4.00 - 5.21 x10(6)/[facility] Hemoglobin 8.8(L) 11.7 - 15.5 gm/dL [facility] Hematocrit 26.7(L) 35.7 - 45.8 % [facility] MCV 84.2 82.6 - 94.4 [facility] LABORATORY MCH 27.8 27.1 - 32.0 pg [facility] MCHC 33.0 31.7 - 35.0 gm/dL [facility] Platelets 351 145 - 357 x10(3)/[facility]ATORY RDWSD 46.5(H) 37.0 - 46.0 [facility]ORATORY RDWCV 15.6(H) 11.5 - 14.1 % [facility] MPV 10.1 7.6 - 12.9 [facility]ORY nRBC % Auto 0.0 % [facility] nRBC Abs Auto 0.000 0.000 - 0.000 x10(3)/[facility] Blood specimen (specimen) 05/08/2020 5:46 AM EDT 05/08/2020 6:21 AM EDT Narrative Resulting Agency Comment Spec In Lab Wilner Esparza MD HEMATOLOGY ORDERABLE S Performing Organization Address City/State/[facility] Co de Phone Number [facility] [address] * (ABNORMAL) Basic Metabolic Panel (non-fasting) (05/08/2020 5:46 AM EDT) Glucose Lvl 152 65 - 199 mg/dL [facility] Comment:Diabetes: >=200 mg/d L plus symptoms BUN 20(H) 8 - 18 mg/dL [facility] Creatinine 0.85 0.70 - 1.20 mg/dL [facility] Sodium 136 135 - 145 mmol/L [facility] Potassium 4.1 3.5 - 5.0 mmol/L [facility] Comment: Please note: ??Patients with WBC >100,000 may have falsely elevated Potassium levels. ??For accurate Potassium quantification in these patients send serum separator tube (gold top) for subsequent determinations. ??Contact the Clinical Chemistry Laboratory if there are any questions. Chloride 107 98 - 107 mmol/L [facility] CO2 21(L) 22 - 31 mmol/L [facility] Anion Gap 8 5 - 15 mmol/L [facility] Calcium 8.9 8.5 - 10.5 mg/dL [facility] Estimated GFR 65 >=60 mL/min/1. 73 m?? [facility] Comment: The eGFR was calculated using the CKD-EPI equation. As with all creatinine based estimates of kidney function, eGFR values calculated with the CKD-EPI equation are not accurate in patients with acute kidney failure, extremes of body mass or the acutely ill. [email or web address] eGFR 76 >=60 mL/min/1. 73 m?? [facility] Comment: The eGFR was calculated using the CKD-EPI equation. As with all creatinine based estimates of kidney function, eGFR values calculated with the CKD-EPI equation are not accurate in patients with acute kidney failure, extremes of body mass or the acutely ill. [email or web address] Blood specimen (specimen) 05/08/2020 5:46 AM EDT 05/08/2020 6:20 AM EDT Narrative Resulting Agency Comment Spec In Lab Milagros Velazquez MD CHEMISTRY ORDERABLES [facility] [place] [address] * Magnesium (05/08/2020 5:46 AM EDT) Magnesium 0.79 0.69 - 1.07 mmol/L [facility] Blood specimen (specimen) 05/08/2020 5:46 AM EDT 05/08/2020 6:20 AM EDT Narrative Resulting Agency Comment Spec In Lab Dale Dash MD CHEMISTRY ORDERABLES Performing Organization Address [facility] [address]/ZIP Co de Phone Number [facility] [place] [place] [address] * POCT Glucose (05/07/2020 8:35 PM EDT) POC Glucose 147 65 - 199 mg/dL [facility] Comment: Supplemental ranges: <140 mg/dL before meals <180 mg/dL all other times of the day Blood specimen (specimen) 05/07/2020 8:35 PM EDT 05/07/2020 8:35 PM EDT Milagros Velazquez MD POINT OF CARE TEST O RDROBIN Performing Organization Address [facility] Co de Phone Number [facility] [place] [address] * POCT Glucose (05/07/2020 4:26 PM EDT) POC Glucose 173 65 - 199 mg/dL [facility] Comment: Supplemental ranges: <140 mg/dL before meals <180 mg/dL all other times of the day Blood specimen (specimen) 05/07/2020 4:26 PM EDT 05/07/2020 4:26 PM EDT Milagros Velazquez MD POINT OF CARE TEST O ISAIAH Performing Organization Address [facility]/ZIP Co de Phone Number [facility] [place] [address] * POCT Glucose (05/07/2020 11:17 AM EDT) POC Glucose 185 65 - 199 mg/dL [facility] Comment: Supplemental ranges: <140 mg/dL before meals <180 mg/dL all other times of the day Blood specimen (specimen) 05/07/2020 11:17 AM EDT 05/07/2020 11:17 AM EDT Milagros Velazquez MD POINT OF CARE TEST O RDERABLES [facility] [place] [address] * POCT Glucose (05/07/2020 7:20 AM EDT) [facility] POC Glucose 145 65 - 199 mg/dL [facility] Comment: Supplemental ranges: <140 mg/dL before meals <180 mg/dL all other times of the day Blood specimen (specimen) 05/07/2020 7:20 AM EDT 05/07/2020 7:20 AM EDT Milagros Velazquez MD POINT OF CARE TEST O RDERATOAN Performing Organization Address City/[facility] [address]/ZIP Co de Phone Number [facility] [place] [place] [address] * Differential, Automated (05/07/2020 6:45 AM EDT) [facility] Neutrophils % 53.8 % [facility] Neutr Abs (ANC) 4.19 1.70 - 6.10 x10(3)/[facility] Lymphocytes % 33.1 % [facility] Lymphocytes Abs 2.6 0.9 - 3.2 x10(3)/[facility] Monocytes % 7.6 % [facility] Monocyte Abs 0.6 0.3 - 0.9 x10(3)/[facility] Eosinophils % 3.2 % [facility] Eosinophils Abs 0.2 0.0 - 0.4 x10(3)/[facility] Basophils % 1.8 % [facility] Basophils Abs 0.1 0.0 - 0.1 x10(3)/[facility] Immature Gran % 0.50 % [facility] Comment: Immature granulocytes(IG's)percentage and absolute count will include metamyelocytes, myelocytes, and promyelocytes. Blood smears from CBCs yielding IG's will be scanned manually for concordance. If this scan disagrees with the automated IG or if promyelocytes are noted, a manual differential will be performed. Nanci Gran Abs 0.04 0.00 - 0.04 x10(3)/[facility] Blood specimen (specimen) 05/07/2020 6:45 AM EDT 05/07/2020 7:01 AM EDT Narrative Resulting Agency Comment Spec In Lab Wilner Esparza MD HEMATOLOGY ORDERABLE S [facility] [place] [place] [address] * (ABNORMAL) Hemogram (05/07/2020 6:45 AM EDT) WBC 7.8 4.0 - 9.5 x10(3)/[facility] RBC 3.19(L) 4.00 - 5.21 x10(6)/[facility] Hemoglobin 8.8(L) 11.7 - 15.5 gm/dL [facility] Hematocrit 26.4(L) 35.7 - 45.8 % [facility] MCV 82.8 82.6 - 94.4 fL [facility] MCH 27.6 27.1 - 32.0 pg [facility] MCHC 33.3 31.7 - 35.0 gm/dL [facility] Platelets 360(H) 145 - 357 x10(3)/[facility] RDWSD 44.9 37.0 - 46.0 [facility]ORATORY RDWCV 15.2(H) 11.5 - 14.1 % [facility] MPV 9.9 7.6 - 12.9 fL [facility] nRBC % Auto 0.0 % [facility] nRBC Abs Auto 0.000 0.000 - 0.000 x10(3)/[facility] Blood specimen (specimen) 05/07/2020 6:45 AM EDT 05/07/2020 7:01 AM EDT Narrative Resulting Agency Comment Spec In Lab Wilner Esparza MD HEMATOLOGY ORDERABLE S [facility] [place] [address] * (ABNORMAL) Basic Metabolic Panel (non-fasting) (05/07/2020 6:45 AM EDT) Glucose Lvl 145 65 - 199 mg/dL [facility] Comment:Diabetes: >=200 mg/d L plus symptoms BUN 18 8 - 18 mg/dL [facility] Creatinine 0.85 0.70 - 1.20 mg/dL [facility] Sodium 137 135 - 145 mmol/L [facility] Potassium 4.1 3.5 - 5.0 mmol/L [facility] Comment: Please note: ??Patients with WBC >100,000 may have falsely elevated Potassium levels. ??For accurate Potassium quantification in these patients send serum separator tube (gold top) for subsequent determinations. ??Contact the Clinical Chemistry Laboratory if there are any questions. Chloride 105 98 - 107 mmol/L [facility] CO2 21(L) 22 - 31 mmol/L [facility] Anion Gap 11 5 - 15 mmol/L [facility] Calcium 8.9 8.5 - 10.5 mg/dL [facility] Estimated GFR 65 >=60 mL/min/1. 73 m?? [facility] Comment: The eGFR was calculated using the CKD-EPI equation. As with all creatinine based estimates of kidney function, eGFR values calculated with the CKD-EPI equation are not accurate in patients with acute kidney failure, extremes of body mass or the acutely ill. [email or web address] eGFR 76 >=60 mL/min/1. 73 m?? [facility] Comment: The eGFR was calculated using the CKD-EPI equation. As with all creatinine based estimates of kidney function, eGFR values calculated with the CKD-EPI equation are not accurate in patients with acute kidney failure, extremes of body mass or the acutely ill. [email or web address] Blood specimen (specimen) 05/07/2020 6:45 AM EDT 05/07/2020 7:01 AM EDT Narrative Resulting Agency Comment Spec In Lab Milagros Velazquez MD CHEMISTRY ORDERABLES Performing Organization Address [facility] [address]/[facility] Co de Phone Number [facility] [place] [place] [address] * Magnesium (05/07/2020 6:45 AM EDT) Magnesium 0.82 0.69 - 1.07 mmol/L [facility] Blood specimen (specimen) 05/07/2020 6:45 AM EDT 05/07/2020 7:01 AM EDT Narrative Resulting Agency Comment Spec In Lab Dale Dash MD CHEMISTRY ORDERABLES Performing Organization Address [facility] Co de Phone Number [facility] [place] [address] * POCT Glucose (05/07/2020 4:11 AM EDT) POC Glucose 156 65 - 199 mg/dL [facility] Comment: Supplemental ranges: <140 mg/dL before meals <180 mg/dL all other times of the day Blood specimen (specimen) 05/07/2020 4:11 AM EDT 05/07/2020 4:11 AM EDT Milagros Velazquez MD POINT OF CARE TEST O RDERABLES Performing Organization Address [facility] [address]/[facility] de Phone Number [facility] [place] [address] * POCT Glucose (05/06/2020 11:36 PM EDT) POC Glucose 172 65 - 199 mg/dL [facility] Comment: Supplemental ranges: <140 mg/dL before meals <180 mg/dL all other times of the day Blood specimen (specimen) 05/06/2020 11:36 PM EDT 05/06/2020 11:36 PM EDT Milagros Velazquez MD POINT OF CARE TEST O RDERATOAN Performing Organization Address [facility] [address]/[facility] de Phone Number [facility] [place] [address] * POCT Glucose (05/06/2020 8:28 PM EDT) POC Glucose 195 65 - 199 mg/dL [facility] Comment: Supplemental ranges: <140 mg/dL before meals <180 mg/dL all other times of the day Blood specimen (specimen) 05/06/2020 8:28 PM EDT 05/06/2020 8:28 PM EDT Milagros Velazquez MD POINT OF CARE TEST O RDERATOAN Performing Organization Address [facility] [address]/[facility] Co de Phone Number [facility] [place] [address] * Differential, Automated (05/06/2020 5:36 PM EDT) Neutrophils % 62.8 % [facility] Neutr Abs (ANC) 6.07 1.70 - 6.10 x10(3)/[facility] Lymphocytes % 27.5 % [facility] Lymphocytes Abs 2.7 0.9 - 3.2 x10(3)/[facility] Monocytes % 5.7 % [facility] Monocyte Abs 0.6 0.3 - 0.9 x10(3)/[facility] Eosinophils % 2.3 % [facility] Eosinophils Abs 0.2 0.0 - 0.4 x10(3)/[facility] Basophils % 1.3 % [facility] Basophils Abs 0.1 0.0 - 0.1 x10(3)/[facility] Immature Gran % 0.40 % [facility] Comment: Immature granulocytes(IG's)percentage and absolute count will include metamyelocytes, myelocytes, and promyelocytes. Blood smears from CBCs yielding IG's will be scanned manually for concordance. If this scan disagrees with the automated IG or if promyelocytes are noted, a manual differential will be performed. Nanci Gran Abs 0.04 0.00 - 0.04 x10(3)/[facility] Blood specimen (specimen) 05/06/2020 5:36 PM EDT 05/06/2020 6:04 PM EDT Narrative Resulting Agency Comment Spec In Lab Wilner Esparza MD HEMATOLOGY ORDERABLE S [facility] [place] [address] * (ABNORMAL) Hemogram (05/06/2020 5:36 PM EDT) WBC 9.7(H) 4.0 - 9.5 x10(3)/[facility] RBC 3.53(L) 4.00 - 5.21 x10(6)/[facility] Hemoglobin 9.7(L) 11.7 - 15.5 gm/dL [facility] Hematocrit 29.8(L) 35.7 - 45.8 % [facility] MCV 84.4 82.6 - 94.4 fL [facility] MCH 27.5 27.1 - 32.0 pg [facility] MCHC 32.6 31.7 - 35.0 gm/dL [facility] Platelets 427(H) 145 - 357 x10(3)/[facility] RDWSD 45.3 37.0 - 46.0 fL [facility] RDWCV 14.9(H) 11.5 - 14.1 % [facility] MPV 10.0 7.6 - 12.9 fL [facility] nRBC % Auto 0.0 % [facility] nRBC Abs Auto 0.000 0.000 - 0.000 x10(3)/mcL [facility] Blood specimen (specimen) 05/06/2020 5:36 PM EDT 05/06/2020 6:04 PM EDT Narrative Resulting Agency Comment Spec In Lab Wilner Esparza MD HEMATOLOGY ORDERABLE S Performing Organization Address City/[facility] [address]/ZIP Co de Phone Number [facility] [place] [phone] * Transfuse RBC (05/06/2020 4:30 PM EDT) Milagros Velazquez MD NURSING TREATMENT OR DERABLES - BLOOD ADMIN * Transfuse RBC (05/06/2020 4:30 PM EDT) Milagros Velazquez MD NURSING TREATMENT OR DERABLES - BLOOD ADMIN * POCT Glucose (05/06/2020 4:20 PM EDT) POC Glucose 165 65 - 199 mg/dL [facility] Comment: Supplemental ranges: <140 mg/dL before meals <180 mg/dL all other times of the day Blood specimen (specimen) 05/06/2020 4:20 PM EDT 05/06/2020 4:20 PM EDT Milagros Velazquez MD POINT OF CARE TEST O RDERABLES Performing Organization Address City/[facility] [address]/ZIP Co de Phone Number [facility] [place] [address] * ABORH Recheck Status (05/06/2020 12:46 PM EDT) ABORH Type Recheck Completed [facility] Blood specimen (specimen) 05/06/2020 12:46 PM EDT 05/06/2020 12:51 PM EDT Narrative Resulting Agency Comment Spec In Lab Wilner Esparza MD BLOOD BANK LAB ORDER JAMIE Performing Organization Address [facility] [address]/ZIP Co de Phone Number [facility] [place] [address] * Antibody screen (05/06/2020 12:46 PM EDT) [facility] Ab Screen Interp Negative [facility] Expires at [id number] on: 05/09/2020 [facility] Blood specimen (specimen) 05/06/2020 12:46 PM EDT 05/06/2020 12:51 PM EDT Narrative Resulting Agency Comment Spec In Lab Wilner Esparza MD BLOOD BANK LAB ORDER JAMIE Performing Organization Address City/[facility] [address]/ZIP Co de Phone Number [facility] [place] [address] * ABO/Rh Typing (05/06/2020 12:46 PM EDT) [facility] ABORH Type O Pos [facility] Blood specimen (specimen) 05/06/2020 12:46 PM EDT 05/06/2020 12:51 PM EDT Narrative Resulting Agency Comment Spec In Lab Wilner Esparza MD BLOOD BANK LAB ORDER JAMIE Performing Organization Address City/[facility] [address]/ZIP Co de Phone Number [facility] [place] [address] * Prepare RBC (05/06/2020 12:15 PM EDT) [facility] Dispensed? Yes [facility] Blood specimen (specimen) 05/06/2020 12:15 PM EDT 05/06/2020 12:14 PM EDT Narrative Resulting Agency Comment Spec In Lab Milagros Velazquez MD BLOOD BANK PRODUCT O RDERABLES Performing Organization Address City/[facility] [address]/ZIP Co de Phone Number [facility] [place] [address] * (ABNORMAL) POCT Glucose (05/06/2020 11:50 AM EDT) [facility] POC Glucose 200(H) 65 - 199 mg/dL [facility] Comment: Supplemental ranges: <140 mg/dL before meals <180 mg/dL all other times of the day Blood specimen (specimen) 05/06/2020 11:50 AM EDT 05/06/2020 11:50 AM EDT Milagros Velazquez MD POINT OF CARE TEST O RDERABLES Performing Organization Address [facility] [address]/[facility] de Phone Number [facility] [place] [address] * POCT Glucose (05/06/2020 7:39 AM EDT) Pathologist [facility] POC Glucose 153 65 - 199 mg/dL [facility] Comment: Supplemental ranges: <140 mg/dL before meals <180 mg/dL all other times of the day Blood specimen (specimen) 05/06/2020 7:39 AM EDT 05/06/2020 7:39 AM EDT Milagros Velazquez MD POINT OF CARE TEST O RDERABLES Performing Organization Address City/[facility] [address]/[facility] Co de Phone Number [facility] [place] [address] * Differential, Automated (05/06/2020 5:25 AM EDT) Neutrophils % 56.6 % [facility] Neutr Abs (ANC) 4.64 1.70 - 6.10 x10(3)/[facility] Lymphocytes % 30.6 % [facility] Lymphocytes Abs 2.5 0.9 - 3.2 x10(3)/[facility] Monocytes % 7.8 % [facility] Monocyte Abs 0.6 0.3 - 0.9 x10(3)/[facility] Eosinophils % 3.0 % [facility] Eosinophils Abs 0.2 0.0 - 0.4 x10(3)/[facility] Basophils % 1.6 % [facility] Basophils Abs 0.1 0.0 - 0.1 x10(3)/[facility] Immature Gran % 0.40 % [facility] Comment: Immature granulocytes(IG's)percentage and absolute count will include metamyelocytes, myelocytes, and promyelocytes. Blood smears from CBCs yielding IG's will be scanned manually for concordance. If this scan disagrees with the automated IG or if promyelocytes are noted, a manual differential will be performed. Nanci Gran Abs 0.03 0.00 - 0.04 x10(3)/[facility] Blood specimen (specimen) 05/06/2020 5:25 AM EDT 05/06/2020 5:25 AM EDT Narrative Resulting Agency Comment Spec In Lab Wilner Esparza MD HEMATOLOGY ORDERABLE S Performing Organization Address City/State/[facility] Co de Phone Number [facility] [place] [address] * (ABNORMAL) Hemogram (05/06/2020 5:25 AM EDT) WBC 8.2 4.0 - 9.5 x10(3)/[facility] RBC 2.58(L) 4.00 - 5.21 x10(6)/[facility] Hemoglobin 7.0(L) 11.7 - 15.5 gm/dL [facility] Hematocrit 22.1(L) 35.7 - 45.8 % [facility] MCV 85.7 82.6 - 94.4 fL [facility] MCH 27.1 27.1 - 32.0 pg [facility] MCHC 31.7 31.7 - 35.0 gm/dL [facility] Platelets 364(H) 145 - 357 x10(3)/[facility] RDWSD 46.5(H) 37.0 - 46.0 fL [facility] RDWCV 15.2(H) 11.5 - 14.1 % [facility] MPV 9.9 7.6 - 12.9 fL [facility] nRBC % Auto 0.0 % [facility] nRBC Abs Auto 0.000 0.000 - 0.000 x10(3)/mcL [facility] Blood specimen (specimen) 05/06/2020 5:25 AM EDT 05/06/2020 5:25 AM EDT Narrative Resulting Agency Comment Spec In Lab Wilner Esparza MD HEMATOLOGY ORDERABLE S [facility] [place] [address] * (ABNORMAL) Basic Metabolic Panel (non-fasting) (05/06/2020 5:25 AM EDT) Glucose Lvl 136 65 - 199 mg/dL [facility] Comment:Diabetes: >=200 mg/d L plus symptoms BUN 24(H) 8 - 18 mg/dL [facility] Creatinine 0.85 0.70 - 1.20 mg/dL [facility] Sodium 137 135 - 145 mmol/L [facility] Potassium 4.2 3.5 - 5.0 mmol/L [facility] Comment: Please note: ??Patients with WBC >100,000 may have falsely elevated Potassium levels. ??For accurate Potassium quantification in these patients send serum separator tube (gold top) for subsequent determinations. ??Contact the Clinical Chemistry Laboratory if there are any questions. Chloride 106 98 - 107 mmol/L [facility] CO2 21(L) 22 - 31 mmol/L [facility] Anion Gap 10 5 - 15 mmol/L [facility] Calcium 8.7 8.5 - 10.5 mg/dL [facility] Estimated GFR 65 >=60 mL/min/1. 73 m?? [facility] Comment: The eGFR was calculated using the CKD-EPI equation. As with all creatinine based estimates of kidney function, eGFR values calculated with the CKD-EPI equation are not accurate in patients with acute kidney failure, extremes of body mass or the acutely ill. [email or web address] eGFR 76 >=60 mL/min/1. 73 m?? [facility] Comment: The eGFR was calculated using the CKD-EPI equation. As with all creatinine based estimates of kidney function, eGFR values calculated with the CKD-EPI equation are not accurate in patients with acute kidney failure, extremes of body mass or the acutely ill. [email or web address] Blood specimen (specimen) 05/06/2020 5:25 AM EDT 05/06/2020 5:25 AM EDT Narrative Resulting Agency Comment Spec In Lab Milagros Velazquez MD CHEMISTRY ORDERABLES Performing Organization Address [facility] [address]/[facility] de Phone Number [facility] [place] [place] [address] * Magnesium (05/06/2020 5:25 AM EDT) Magnesium 0.84 0.69 - 1.07 mmol/L [facility] Blood specimen (specimen) 05/06/2020 5:25 AM EDT 05/06/2020 5:25 AM EDT Narrative Resulting Agency Comment Spec In Lab Dale Dash MD CHEMISTRY ORDERABLES Performing Organization Address [facility] Phone Number [facility] [place] [address] * POCT Glucose (05/06/2020 4:08 AM EDT) POC Glucose 154 65 - 199 mg/dL [facility] Comment: Supplemental ranges: <140 mg/dL before meals <180 mg/dL all other times of the day Blood specimen (specimen) 05/06/2020 4:08 AM EDT 05/06/2020 4:08 AM EDT Milagros Velazquez MD POINT OF CARE TEST O RDERABLES Performing Organization Address [facility]/State/[facility] Co de Phone Number [facility] [place] [place] [address] * SCAN DOC: LAB (05/06/2020 12:00 AM EDT) Narrative 05/06/2020 12:00 AM EDT Ordered by an unspecified provider. Scanning Provider MEDIA MGR SCAN EXT O RDR/RSLT * POCT Glucose (05/05/2020 11:58 PM EDT) POC Glucose 184 65 - 199 mg/dL [facility] Comment: Supplemental ranges: <140 mg/dL before meals <180 mg/dL all other times of the day Blood specimen (specimen) 05/05/2020 11:58 PM EDT 05/05/2020 11:58 PM EDT Milagros Velazquez MD POINT OF CARE TEST O ISAIAH Performing Organization Address [facility] [address]/ZIP Co de Phone Number [facility] [place] [place] [address] * POCT Glucose (05/05/2020 8:18 PM EDT) POC Glucose 173 65 - 199 mg/dL [facility] Comment: Supplemental ranges: <140 mg/dL before meals <180 mg/dL all other times of the day Blood specimen (specimen) 05/05/2020 8:18 PM EDT 05/05/2020 8:18 PM EDT Milagros Velazquez MD POINT OF CARE TEST O ISAIAH [facility] [place] [address] * POCT Glucose (05/05/2020 4:36 PM EDT) POC Glucose 147 65 - 199 mg/dL [facility] Comment: Supplemental ranges: <140 mg/dL before meals <180 mg/dL all other times of the day Blood specimen (specimen) 05/05/2020 4:36 PM EDT 05/05/2020 4:36 PM EDT Milagros Velazquez MD POINT OF CARE TEST O RDERABLES Performing Organization Address City/[facility] [address]/[place] [address] * (ABNORMAL) Hemogram (05/05/2020 2:13 PM EDT) WBC 9.3 4.0 - 9.5 x10(3)/[facility] LABORATORY RBC 2.85(L) 4.00 - 5.21 x10(6)/[facility] LABORATORY Hemoglobin 7.7(L) 11.7 - 15.5 gm/dL [facility] Hematocrit 24.3(L) 35.7 - 45.8 % [facility] MCV 85.3 82.6 - 94.4 fL [facility] MCH 27.0(L) 27.1 - 32.0 pg [facility] MCHC 31.7 31.7 - 35.0 gm/dL [facility] Platelets 386(H) 145 - 357 x10(3)/[facility] LABORATORY RDWSD 45.7 37.0 - 46.0 [facility] LABORATORY RDWCV 14.8(H) 11.5 - 14.1 % [facility] MPV 9.8 7.6 - 12.9 [facility] LABORATORY nRBC % Auto 0.0 % [facility] nRBC Abs Auto 0.000 0.000 - 0.000 x10(3)/[facility] LABORATORY Blood specimen (specimen) 05/05/2020 2:13 PM EDT 05/05/2020 2:18 PM EDT Narrative Resulting Agency Comment Spec In Lab Milagros Velazquez MD HEMATOLOGY ORDERABLE S [facility] [place] [address] * POCT Glucose (05/05/2020 12:12 PM EDT) POC Glucose 177 65 - 199 mg/dL [facility] Comment: Supplemental ranges: <140 mg/dL before meals <180 mg/dL all other times of the day Blood specimen (specimen) 05/05/2020 12:12 PM EDT 05/05/2020 12:12 PM EDT Milagros Velazquez MD POINT OF CARE TEST O RDERABLES [facility] [place] [place] [address] * POCT Glucose (05/05/2020 7:41 AM EDT) POC Glucose 176 65 - 199 mg/dL [facility] Comment: Supplemental ranges: <140 mg/dL before meals <180 mg/dL all other times of the day Blood specimen (specimen) 05/05/2020 7:41 AM EDT 05/05/2020 7:41 AM EDT Milagors Velazquez MD POINT OF CARE TEST O RDERABLES Performing Organization Address City/[facility] [address]/ZIP Co de Phone Number [facility] [place] [place] [address] * (ABNORMAL) Differential, Automated (05/05/2020 7:34 AM EDT) Neutrophils % 64.5 % [facility] Neutr Abs (ANC) 5.88 1.70 - 6.10 x10(3)/mc L [facility] Lymphocytes % 24.1 % [facility] Lymphocytes Abs 2.2 0.9 - 3.2 x10(3)/mc L [facility] Monocytes % 7.0 % [facility] Monocyte Abs 0.6 0.3 - 0.9 x10(3)/mc L [facility] Eosinophils % 2.7 % [facility] Eosinophils Abs 0.2 0.0 - 0.4 x10(3)/[facility] LABORATORY Basophils % 1.2 % [facility] Basophils Abs 0.1 0.0 - 0.1 x10(3)/[facility] LABORATORY Immature Gran % 0.50 % [facility] Comment: Immature granulocytes(IG's)percentage and absolute count will include metamyelocytes, myelocytes, and promyelocytes. Blood smears from CBCs yielding IG's will be scanned manually for concordance. If this scan disagrees with the automated IG or if promyelocytes are noted, a manual differential will be performed. Nanci Gran Abs 0.05(H) 0.00 - 0.04 x10(3)/[facility] LABORATORY Blood specimen (specimen) 05/05/2020 7:34 AM EDT 05/05/2020 7:38 AM EDT Narrative Resulting Agency Comment Spec In Lab Wilner Esparza MD HEMATOLOGY ORDERABLE S [facility] [place] [place] [address] * (ABNORMAL) Hemogram (05/05/2020 7:34 AM EDT) WBC 9.1 4.0 - 9.5 x10(3)/[facility] LABORATORY RBC 2.76(L) 4.00 - 5.21 x10(6)/[facility] LABORATORY Hemoglobin 7.6(L) 11.7 - 15.5 gm/dL [facility] Hematocrit 23.6(L) 35.7 - 45.8 % [facility] MCV 85.5 82.6 - 94.4 fL [facility] MCH 27.5 27.1 - 32.0 pg [facility] MCHC 32.2 31.7 - 35.0 gm/dL [facility] Platelets 386(H) 145 - 357 x10(3)/[facility] LABORATORY RDWSD 46.0 37.0 - 46.0 fL [facility] RDWCV 15.1(H) 11.5 - 14.1 % [facility] MPV 9.9 7.6 - 12.9 fL [facility] nRBC % Auto 0.0 % [facility] nRBC Abs Auto 0.000 0.000 - 0.000 x10(3)/[facility] LABORATORY Blood specimen (specimen) 05/05/2020 7:34 AM EDT 05/05/2020 7:38 AM EDT Narrative Resulting Agency Comment Spec In Lab Wilner Esparza MD HEMATOLOGY ORDERABLE S [facility] [place] [address] * (ABNORMAL) Basic Metabolic Panel (non-fasting) (05/05/2020 7:34 AM EDT) Glucose Lvl 157 65 - 199 mg/dL [facility] Comment:Diabetes: >=200 mg/d L plus symptoms BUN 28(H) 8 - 18 mg/dL [facility] Creatinine 0.74 0.70 - 1.20 mg/dL [facility] Sodium 137 135 - 145 mmol/L [facility] Potassium 4.4 3.5 - 5.0 mmol/L [facility] Comment: Please note: ??Patients with WBC >100,000 may have falsely elevated Potassium levels. ??For accurate Potassium quantification in these patients send serum separator tube (gold top) for subsequent determinations. ??Contact the Clinical Chemistry Laboratory if there are any questions. Chloride 105 98 - 107 mmol/L [facility] CO2 21(L) 22 - 31 mmol/L [facility] Anion Gap 11 5 - 15 mmol/L [facility] Calcium 8.5 8.5 - 10.5 mg/dL [facility] Estimated GFR 77 >=60 mL/min/1. 73 m?? [facility] Comment: The eGFR was calculated using the CKD-EPI equation. As with all creatinine based estimates of kidney function, eGFR values calculated with the CKD-EPI equation are not accurate in patients with acute kidney failure, extremes of body mass or the acutely ill. [email or web address] eGFR 89 >=60 mL/min/1. 73 m?? [facility] Comment: The eGFR was calculated using the CKD-EPI equation. As with all creatinine based estimates of kidney function, eGFR values calculated with the CKD-EPI equation are not accurate in patients with acute kidney failure, extremes of body mass or the acutely ill. [email or web address] Blood specimen (specimen) 05/05/2020 7:34 AM EDT 05/05/2020 7:38 AM EDT Narrative Resulting Agency Comment Spec In Lab Milagros Velazquez MD CHEMISTRY ORDERABLES Performing Organization Address City/[facility] [address]/ZIP Co de Phone Number [facility] [place] [address] * Magnesium (05/05/2020 5:29 AM EDT) Magnesium 0.81 0.69 - 1.07 mmol/L [facility] Blood specimen (specimen) 05/05/2020 5:29 AM EDT 05/05/2020 5:54 AM EDT Narrative Resulting Agency Comment Spec In Lab Dale Dash MD CHEMISTRY ORDERABLES Performing Organization Address [facility] [address]/ZIP Co de Phone Number [facility] [place] [address] * POCT Glucose (05/05/2020 4:08 AM EDT) POC Glucose 148 65 - 199 mg/dL [facility] Comment: Supplemental ranges: <140 mg/dL before meals <180 mg/dL all other times of the day Blood specimen (specimen) 05/05/2020 4:08 AM EDT 05/05/2020 4:08 AM EDT Milagros Velazquez MD POINT OF CARE TEST O ISAIAH Performing Organization Address [facility] [address]/[facility] Co de Phone Number [facility] [place] [address] * POCT Glucose (05/04/2020 11:41 PM EDT) Pathologist [facility] POC Glucose 173 65 - 199 mg/dL [facility] Comment: Supplemental ranges: <140 mg/dL before meals <180 mg/dL all other times of the day Blood specimen (specimen) 05/04/2020 11:41 PM EDT 05/04/2020 11:41 PM EDT Milagros Velazquez MD POINT OF CARE TEST O ISAIAH Performing Organization Address [facility] [address]/[facility] de Phone Number [facility] [place] [address] * (ABNORMAL) Hemogram (05/04/2020 8:12 PM EDT) WBC 11.8(H) 4.0 - 9.5 x10(3)/[facility] LABORATORY RBC 3.02(L) 4.00 - 5.21 x10(6)/[facility] LABORATORY Hemoglobin 8.2(L) 11.7 - 15.5 gm/dL [facility] Hematocrit 25.8(L) 35.7 - 45.8 % [facility] MCV 85.4 82.6 - 94.4 fL [facility] MCH 27.2 27.1 - 32.0 pg [facility] MCHC 31.8 31.7 - 35.0 gm/dL [facility] Platelets 418(H) 145 - 357 x10(3)/[facility] LABORATORY RDWSD 45.9 37.0 - 46.0 fL [facility] RDWCV 15.1(H) 11.5 - 14.1 % [facility] MPV 10.0 7.6 - 12.9 fL [facility] nRBC % Auto 0.0 % [facility] nRBC Abs Auto 0.000 0.000 - 0.000 x10(3)/mcL [facility] Blood specimen (specimen) 05/04/2020 8:12 PM EDT 05/04/2020 8:36 PM EDT Narrative Resulting Agency Comment Spec In Lab Milagros Velazquez MD HEMATOLOGY ORDERABLE S Performing Organization Address [facility] [address]/[facility] Co de Phone Number [facility] [place] [address] * POCT Glucose (05/04/2020 7:45 PM EDT) POC Glucose 178 65 - 199 mg/dL [facility] Comment: Supplemental ranges: <140 mg/dL before meals <180 mg/dL all other times of the day Blood specimen (specimen) 05/04/2020 7:45 PM EDT 05/04/2020 7:45 PM EDT Milagros Velazquez MD POINT OF CARE TEST O RDERABLES Performing Organization Address [facility] [address]/[facility] Co de Phone Number [facility] [address] * POCT Glucose (05/04/2020 4:19 PM EDT) POC Glucose 160 65 - 199 mg/dL [facility] Comment: Supplemental ranges: <140 mg/dL before meals <180 mg/dL all other times of the day Blood specimen (specimen) 05/04/2020 4:19 PM EDT 05/04/2020 4:19 PM EDT Milagros Velazquez MD POINT OF CARE TEST O RDERABLES Performing Organization Address City/[facility] [address]/ZIP Co de Phone Number [facility] [place] [place] [address] * (ABNORMAL) Hemogram (05/04/2020 2:26 PM EDT) [facility] WBC 10.6(H) 4.0 - 9.5 x10(3)/[facility] LABORATORY RBC 3.04(L) 4.00 - 5.21 x10(6)/[facility] LABORATORY Hemoglobin 8.3(L) 11.7 - 15.5 gm/dL [facility] Hematocrit 26.1(L) 35.7 - 45.8 % [facility] MCV 85.9 82.6 - 94.4 [facility] LABORATORY MCH 27.3 27.1 - 32.0 pg [facility] MCHC 31.8 31.7 - 35.0 gm/dL [facility] Platelets 474(H) 145 - 357 x10(3)/[facility] RDWSD 46.4(H) 37.0 - 46.0 [facility] LABORATORY RDWCV 15.0(H) 11.5 - 14.1 % [facility] MPV 10.4 7.6 - 12.9 [facility] LABORATORY nRBC % Auto 0.0 % [facility] nRBC Abs Auto 0.000 0.000 - 0.000 x10(3)/[facility] LABORATORY Blood specimen (specimen) 05/04/2020 2:26 PM EDT 05/04/2020 2:42 PM EDT Narrative Resulting Agency Comment Spec In Lab Milagros Velazquez MD HEMATOLOGY ORDERABLE S [facility] [place] [address] * POCT Glucose (05/04/2020 11:36 AM EDT) [facility] POC Glucose 174 65 - 199 mg/dL [facility] Comment: Supplemental ranges: <140 mg/dL before meals <180 mg/dL all other times of the day Blood specimen (specimen) 05/04/2020 11:36 AM EDT 05/04/2020 11:36 AM EDT Milagros Velazquez MD POINT OF CARE TEST O RDROBIN Performing Organization Address City/[facility] [address]/ZIP Co de Phone Number [facility] [place] [address] * POCT Glucose (05/04/2020 8:19 AM EDT) Pathologist [facility] POC Glucose 167 65 - 199 mg/dL [facility] Comment: Supplemental ranges: <140 mg/dL before meals <180 mg/dL all other times of the day Blood specimen (specimen) 05/04/2020 8:19 AM EDT 05/04/2020 8:19 AM EDT Milagros Velazquez MD POINT OF CARE TEST O ISAIAH Performing Organization Address City/[facility] [address]/ZIP Co de Phone Number [facility] [place] [address] * (ABNORMAL) Differential, Automated (05/04/2020 5:18 AM EDT) Pathologist [facility] Neutrophils % 64.3 % [facility] Neutr Abs (ANC) 7.33(H) 1.70 - 6.10 x10(3)/mc L [facility] Lymphocytes % 23.3 % [facility] Lymphocytes Abs 2.7 0.9 - 3.2 x10(3)/mc L [facility] Monocytes % 7.4 % [facility] Monocyte Abs 0.8 0.3 - 0.9 x10(3)/mc L [facility] Eosinophils % 3.4 % [facility] Eosinophils Abs 0.4 0.0 - 0.4 x10(3)/mc L [facility] Basophils % 1.1 % [facility] Basophils Abs 0.1 0.0 - 0.1 x10(3)/ L [facility] Immature Gran % 0.50 % [facility] Comment: Immature granulocytes(IG's)percentage and absolute count will include metamyelocytes, myelocytes, and promyelocytes. Blood smears from CBCs yielding IG's will be scanned manually for concordance. If this scan disagrees with the automated IG or if promyelocytes are noted, a manual differential will be performed. Nanci Gran Abs 0.06(H) 0.00 - 0.04 x10(3)/ L [facility] Blood specimen (specimen) 05/04/2020 5:18 AM EDT 05/04/2020 5:40 AM EDT Narrative Resulting Agency Comment Spec In Lab Davon Leung MD HEMATOLOGY ORDERABLE S [facility] [place] [place] [address] * (ABNORMAL) Hemogram (05/04/2020 5:18 AM EDT) WBC 11.4(H) 4.0 - 9.5 x10(3)/[facility] LABORATORY RBC 2.97(L) 4.00 - 5.21 x10(6)/[facility] LABORATORY Hemoglobin 8.0(L) 11.7 - 15.5 gm/dL [facility] Hematocrit 25.6(L) 35.7 - 45.8 % [facility] MCV 86.2 82.6 - 94.4 fL [facility] MCH 26.9(L) 27.1 - 32.0 pg [facility] MCHC 31.3(L) 31.7 - 35.0 gm/dL [facility] Platelets 415(H) 145 - 357 x10(3)/[facility] LABORATORY RDWSD 47.3(H) 37.0 - 46.0 fL [facility] RDWCV 15.2(H) 11.5 - 14.1 % [facility] MPV 10.0 7.6 - 12.9 fL [facility] nRBC % Auto 0.0 % [facility] nRBC Abs Auto 0.000 0.000 - 0.000 x10(3)/mcL [facility] Blood specimen (specimen) 05/04/2020 5:18 AM EDT 05/04/2020 5:40 AM EDT Narrative Resulting Agency Comment Spec In Lab Davon Leung MD HEMATOLOGY ORDERABLE S Performing Organization Address City/[facility] [address]/ZIP Co de Phone Number [facility] [place] [address] * Magnesium (05/04/2020 5:18 AM EDT) Magnesium 0.97 0.69 - 1.07 mmol/L [facility] Blood specimen (specimen) 05/04/2020 5:18 AM EDT 05/04/2020 5:40 AM EDT Narrative Resulting Agency Comment Spec In Lab Dale Dash MD CHEMISTRY ORDERABLES Performing Organization Address [facility] [address]/ZIP Co de Phone Number [facility] [place] [address] * (ABNORMAL) Comprehensive metabolic panel (non-fasting) (05/04/2020 5:18 AM EDT) Glucose Lvl 151 65 - 199 mg/dL [facility] Comment:Diabetes: >=200 mg/d L plus symptoms BUN 33(H) 8 - 18 mg/dL [facility] Creatinine 0.92 0.70 - 1.20 mg/dL [facility] Sodium 136 135 - 145 mmol/L [facility] Potassium 4.3 3.5 - 5.0 mmol/L [facility] Comment: Please note: ??Patients with WBC >100,000 may have falsely elevated Potassium levels. ??For accurate Potassium quantification in these patients send serum separator tube (gold top) for subsequent determinations. ??Contact the Clinical Chemistry Laboratory if there are any questions. Chloride 105 98 - 107 mmol/L [facility] CO2 20(L) 22 - 31 mmol/L [facility] Anion Gap 11 5 - 15 mmol/L [facility] Calcium 8.9 8.5 - 10.5 mg/dL [facility] Total Protein 6.0(L) 6.1 - 8.0 gm/dL [facility] Albumin 2.9(L) 3.2 - 5.2 gm/dL [facility] AST 12 0 - 30 unit/L [facility] ALT 11 0 - 30 unit/L [facility] Alk Phos 133(H) 35 - 105 unit/L [facility] Total Bilirubin 0.3 0.2 - 1.3 mg/dL [facility] Estimated GFR 59(L) >=60 mL/min/1. 73 m?? [facility] Comment: The eGFR was calculated using the CKD-EPI equation. As with all creatinine based estimates of kidney function, eGFR values calculated with the CKD-EPI equation are not accurate in patients with acute kidney failure, extremes of body mass or the acutely ill. [email or web address] eGFR 69 >=60 mL/min/1. 73 m?? [facility] Comment: The eGFR was calculated using the CKD-EPI equation. As with all creatinine based estimates of kidney function, eGFR values calculated with the CKD-EPI equation are not accurate in patients with acute kidney failure, extremes of body mass or the acutely ill. [email or web address] Blood specimen (specimen) 05/04/2020 5:18 AM EDT 05/04/2020 5:40 AM EDT Narrative Resulting Agency Comment Spec In Lab Dale Dash MD CHEMISTRY ORDERABLES [facility] [place] [address] * POCT Glucose (05/04/2020 3:10 AM EDT) POC Glucose 163 65 - 199 mg/dL [facility] Comment: Supplemental ranges: <140 mg/dL before meals <180 mg/dL all other times of the day Blood specimen (specimen) 05/04/2020 3:10 AM EDT 05/04/2020 3:10 AM EDT Milagros Velazquez MD POINT OF CARE TEST O RDERABLES Performing Organization Address City/[facility] [address]/ZIP Co de Phone Number [facility] [place] [place] [address] * POCT Glucose (05/04/2020 12:07 AM EDT) POC Glucose 196 65 - 199 mg/dL [facility] Comment: Supplemental ranges: <140 mg/dL before meals <180 mg/dL all other times of the day Blood specimen (specimen) 05/04/2020 12:07 AM EDT 05/04/2020 12:07 AM EDT Milagros Velazquez MD POINT OF CARE TEST O RDERABLES Performing Organization Address [facility] [address]/[facility] Co de Phone Number [facility] [place] [address] * (ABNORMAL) POCT Glucose (05/03/2020 7:53 PM EDT) POC Glucose 214(H) 65 - 199 mg/dL [facility] Comment: Supplemental ranges: <140 mg/dL before meals <180 mg/dL all other times of the day Blood specimen (specimen) 05/03/2020 7:53 PM EDT 05/03/2020 7:53 PM EDT Milagros Velazquez MD POINT OF CARE TEST O RDERABLES Performing Organization Address City/[facility] [address]/ZIP Co de Phone Number [facility] [place] [place] [address] * POCT Glucose (05/03/2020 5:01 PM EDT) [facility] POC Glucose 199 65 - 199 mg/dL [facility] Comment: Supplemental ranges: <140 mg/dL before meals <180 mg/dL all other times of the day Blood specimen (specimen) 05/03/2020 5:01 PM EDT 05/03/2020 5:01 PM EDT Milagros Velazquez MD POINT OF CARE TEST O RDERABLES [facility] [place] [address] * (ABNORMAL) Hemogram (05/03/2020 1:49 PM EDT) [facility] WBC 11.2(H) 4.0 - 9.5 x10(3)/[facility] LABORATORY RBC 3.20(L) 4.00 - 5.21 x10(6)/[facility] LABORATORY Hemoglobin 8.7(L) 11.7 - 15.5 gm/dL [facility] Hematocrit 27.1(L) 35.7 - 45.8 % [facility] MCV 84.7 82.6 - 94.4 [facility] LABORATORY MCH 27.2 27.1 - 32.0 pg [facility] MCHC 32.1 31.7 - 35.0 gm/dL [facility] Platelets 428(H) 145 - 357 x10(3)/[facility] LABORATORY RDWSD 45.1 37.0 - 46.0 [facility] LABORATORY RDWCV 14.8(H) 11.5 - 14.1 % [facility] MPV 9.7 7.6 - 12.9 [facility] LABORATORY nRBC % Auto 0.0 % [facility] nRBC Abs Auto 0.000 0.000 - 0.000 x10(3)/[facility] LAB[facility]ATORY Blood specimen (specimen) 05/03/2020 1:49 PM EDT 05/03/2020 1:55 PM EDT Narrative Resulting Agency Comment Spec In Lab Milagros Velazquez MD HEMATOLOGY ORDERABLE S Performing Organization Address [facility] [address]/[facility] de Phone Number [facility] [place] [address] * POCT Glucose (05/03/2020 11:45 AM EDT) POC Glucose 155 65 - 199 mg/dL [facility] Comment: Supplemental ranges: <140 mg/dL before meals <180 mg/dL all other times of the day Blood specimen (specimen) 05/03/2020 11:45 AM EDT 05/03/2020 11:45 AM EDT Milagros Velazquez MD POINT OF CARE TEST O RDERABLES Performing Organization Address [facility] [address]/[facility] de Phone Number [facility] [place] [address] * UPPER GI ENDOSCOPY (05/03/2020 9:48 AM EDT) Pathologist [facility] UPPER GI ENDOSCOPY [facility] Endoscopy Procedure Date: 05/03/2020 9:48 AM ? Patient Name: Shannan Chaudhary ? Date of : 1940 ? Age: 79 ? Order #: [id number] ? Instrument Name: [id number] ? Procedure: ? Upper GI endoscopy Indications: ? Melena Providers: ? Brigitte Graf MD, Oscar Baird ? Jessica Heath, ? Associate Financial Analyst, Mauro Johnson MD: ? Medicines: ? 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 [employer] * POCT Glucose (05/03/2020 7:50 AM EDT) POC Glucose 164 65 - 199 mg/dL [facility] Comment: Supplemental ranges: <140 mg/dL before meals <180 mg/dL all other times of the day Blood specimen (specimen) 05/03/2020 7:50 AM EDT 05/03/2020 7:50 AM EDT Milagros Velazquez MD POINT OF CARE TEST O RDERABLES [facility] [place] [address] * (ABNORMAL) Differential, Automated (05/03/2020 5:08 AM EDT) Pathologist [facility] Neutrophils % 69.6 % [facility] Neutr Abs (ANC) 9.11(H) 1.70 - 6.10 x10(3)/ L [facility] Lymphocytes % 19.6 % [facility] Lymphocytes Abs 2.6 0.9 - 3.2 x10(3)/ L [facility] Monocytes % 6.7 % [facility] Monocyte Abs 0.9 0.3 - 0.9 x10(3)/[facility] LABORATORY Eosinophils % 2.8 % [facility] Eosinophils Abs 0.4 0.0 - 0.4 x10(3)/ L [facility] Basophils % 0.8 % [facility] Basophils Abs 0.1 0.0 - 0.1 x10(3)/ L [facility] Immature Gran % 0.50 % [facility] Comment: Immature granulocytes(IG's)percentage and absolute count will include metamyelocytes, myelocytes, and promyelocytes. Blood smears from CBCs yielding IG's will be scanned manually for concordance. If this scan disagrees with the automated IG or if promyelocytes are noted, a manual differential will be performed. Nanci Gran Abs 0.06(H) 0.00 - 0.04 x10(3)/mc L [facility] Blood specimen (specimen) 05/03/2020 5:08 AM EDT 05/03/2020 5:30 AM EDT Narrative Resulting Agency Comment Spec In Lab Davon Leung MD HEMATOLOGY ORDERABLE S [facility] [place] [place] [address] * (ABNORMAL) Hemogram (05/03/2020 5:08 AM EDT) WBC 13.1(H) 4.0 - 9.5 x10(3)/[facility] LABORATORY RBC 3.04(L) 4.00 - 5.21 x10(6)/[facility] Hemoglobin 8.3(L) 11.7 - 15.5 gm/dL [facility] Hematocrit 25.7(L) 35.7 - 45.8 % [facility] MCV 84.5 82.6 - 94.4 fL [facility] MCH 27.3 27.1 - 32.0 pg [facility] MCHC 32.3 31.7 - 35.0 gm/dL [facility] Platelets 409(H) 145 - 357 x10(3)/[facility] LABORATORY RDWSD 45.7 37.0 - 46.0 [facility] LABORATORY RDWCV 15.0(H) 11.5 - 14.1 % [facility] MPV 10.0 7.6 - 12.9 [facility] LABORATORY nRBC % Auto 0.0 % [facility] nRBC Abs Auto 0.000 0.000 - 0.000 x10(3)/[facility] Blood specimen (specimen) 05/03/2020 5:08 AM EDT 05/03/2020 5:30 AM EDT Narrative Resulting Agency Comment Spec In Lab Davon Leung MD HEMATOLOGY ORDERABLE S [facility] [place] [place] [address] * Magnesium (05/03/2020 5:08 AM EDT) Pathologist [facility] Magnesium 0.82 0.69 - 1.07 mmol/L [facility] Blood specimen (specimen) 05/03/2020 5:08 AM EDT 05/03/2020 5:30 AM EDT Narrative Resulting Agency Comment Spec In Lab Dale Dash MD CHEMISTRY ORDERABLES Performing Organization Address [facility] [address]/[facility] Co de Phone Number [facility] [place] [address] * (ABNORMAL) Comprehensive metabolic panel (non-fasting) (05/03/2020 5:08 AM EDT) [facility] Glucose Lvl 164 65 - 199 mg/dL [facility] Comment:Diabetes: >=200 mg/d L plus symptoms BUN 30(H) 8 - 18 mg/dL [facility] Creatinine 0.82 0.70 - 1.20 mg/dL [facility] Sodium 138 135 - 145 mmol/L [facility] Potassium 4.2 3.5 - 5.0 mmol/L [facility] Comment: Please note: ??Patients with WBC >100,000 may have falsely elevated Potassium levels. ??For accurate Potassium quantification in these patients send serum separator tube (gold top) for subsequent determinations. ??Contact the Clinical Chemistry Laboratory if there are any questions. Chloride 105 98 - 107 mmol/L [facility] CO2 21(L) 22 - 31 mmol/L [facility] Anion Gap 12 5 - 15 mmol/L [facility] Calcium 9.0 8.5 - 10.5 mg/dL [facility] Total Protein 6.1 6.1 - 8.0 gm/dL [facility] Albumin 3.0(L) 3.2 - 5.2 gm/dL [facility] AST 7 0 - 30 unit/L [facility] ALT 8 0 - 30 unit/L [facility] Alk Phos 136(H) 35 - 105 unit/L [facility] Total Bilirubin 0.3 0.2 - 1.3 mg/dL [facility] Estimated GFR 68 >=60 mL/min/1. 73 m?? [facility] Comment: The eGFR was calculated using the CKD-EPI equation. As with all creatinine based estimates of kidney function, eGFR values calculated with the CKD-EPI equation are not accurate in patients with acute kidney failure, extremes of body mass or the acutely ill. [email or web address] [place] eGFR 79 >=60 mL/min/1. 73 m?? [facility] Comment: The eGFR was calculated using the CKD-EPI equation. As with all creatinine based estimates of kidney function, eGFR values calculated with the CKD-EPI equation are not accurate in patients with acute kidney failure, extremes of body mass or the acutely ill. [email or web address] Blood specimen (specimen) 05/03/2020 5:08 AM EDT 05/03/2020 5:30 AM EDT Narrative Resulting Agency Comment Spec In Lab Dale Dash MD CHEMISTRY ORDERABLES Performing Organization Address City/State/[facility] Co de Phone Number [facility] [place] [address] * POCT Glucose (05/03/2020 4:26 AM EDT) POC Glucose 164 65 - 199 mg/dL [facility] Comment: Supplemental ranges: <140 mg/dL before meals <180 mg/dL all other times of the day Blood specimen (specimen) 05/03/2020 4:26 AM EDT 05/03/2020 4:26 AM EDT Milagros Velazquez MD POINT OF CARE TEST O RDERABLES [facility] [place] [address] * POCT Glucose (05/03/2020 12:12 AM EDT) [facility] POC Glucose 175 65 - 199 mg/dL [facility] Comment: Supplemental ranges: <140 mg/dL before meals <180 mg/dL all other times of the day Blood specimen (specimen) 05/03/2020 12:12 AM EDT 05/03/2020 12:12 AM EDT Milagros Velazquez MD POINT OF CARE TEST O RDERABLES Performing Organization Address City/[facility] [address]/ZIP Co de Phone Number [facility] [place] [address] * (ABNORMAL) Hemogram (05/02/2020 8:57 PM EDT) Pathologist [facility] WBC 12.9(H) 4.0 - 9.5 x10(3)/[facility] LABORATORY RBC 3.04(L) 4.00 - 5.21 x10(6)/[facility] Hemoglobin 8.3(L) 11.7 - 15.5 gm/dL [facility] Hematocrit 25.9(L) 35.7 - 45.8 % [facility] MCV 85.2 82.6 - 94.4 fL [facility] MCH 27.3 27.1 - 32.0 pg [facility] MCHC 32.0 31.7 - 35.0 gm/dL [facility] Platelets 413(H) 145 - 357 x10(3)/[facility]ORY RDWSD 45.7 37.0 - 46.0 [facility] RDWCV 14.8(H) 11.5 - 14.1 % [facility] MPV 9.7 7.6 - 12.9 [facility] nRBC % Auto 0.0 % [facility] nRBC Abs Auto 0.000 0.000 - 0.000 x10(3)/mcL [facility] Blood specimen (specimen) 05/02/2020 8:57 PM EDT 05/02/2020 9:08 PM EDT Narrative Resulting Agency Comment Spec In Lab Milagros Velazquez MD HEMATOLOGY ORDERABLE S Performing Organization Address City/[facility] [address]/ZIP Co de Phone Number [facility] [place] [place] [address] * (ABNORMAL) POCT Glucose (05/02/2020 7:52 PM EDT) POC Glucose 246(H) 65 - 199 mg/dL [facility] Comment: Supplemental ranges: <140 mg/dL before meals <180 mg/dL all other times of the day Blood specimen (specimen) 05/02/2020 7:52 PM EDT 05/02/2020 7:52 PM EDT Milagros Velazquez MD POINT OF CARE TEST O RDERABLES Performing Organization Address [facility] [address]/[facility] Co de Phone Number [facility] [place] [place] [address] * (ABNORMAL) POCT Glucose (05/02/2020 4:12 PM EDT) POC Glucose 227(H) 65 - 199 mg/dL [facility] Comment: Supplemental ranges: <140 mg/dL before meals <180 mg/dL all other times of the day Blood specimen (specimen) 05/02/2020 4:12 PM EDT 05/02/2020 4:12 PM EDT Milagros Velazquez MD POINT OF CARE TEST O RDERABLES Performing Organization Address [facility] [address]/ZIP Co de Phone Number [facility] [place] [address] * ABORH Recheck Status (05/02/2020 3:13 PM EDT) ABORH Type Recheck Completed [facility] Blood specimen (specimen) 05/02/2020 3:13 PM EDT 05/02/2020 3:17 PM EDT Narrative Resulting Agency Comment Spec In Lab Wilner Esparza MD BLOOD BANK LAB ORDER JAMIE [facility] [place] [place] [address] * Antibody screen (05/02/2020 3:13 PM EDT) [facility] Ab Screen Interp Negative [facility] Expires at [id number] on: 05/05/2020 [facility] Blood specimen (specimen) 05/02/2020 3:13 PM EDT 05/02/2020 3:17 PM EDT Narrative Resulting Agency Comment Spec In Lab Wilner Esparza MD BLOOD BANK LAB ORDER JAMIE [facility] [place] [place] [address] * ABO/Rh Typing (05/02/2020 3:13 PM EDT) Pathologist [facility] ABORH Type O Pos [facility] Blood specimen (specimen) 05/02/2020 3:13 PM EDT 05/02/2020 3:17 PM EDT Narrative Resulting Agency Comment Spec In Lab Wilner Esparza MD BLOOD BANK LAB ORDER JAMIE [facility] [place] [place] [address] * (ABNORMAL) Hemogram (05/02/2020 3:13 PM EDT) [facility] WBC 11.8(H) 4.0 - 9.5 x10(3)/[facility]ORY RBC 3.18(L) 4.00 - 5.21 x10(6)/[facility] Hemoglobin 8.8(L) 11.7 - 15.5 gm/dL [facility] Hematocrit 27.1(L) 35.7 - 45.8 % [facility] MCV 85.2 82.6 - 94.4 fL [facility] MCH 27.7 27.1 - 32.0 pg [facility] MCHC 32.5 31.7 - 35.0 gm/dL [facility] Platelets 420(H) 145 - 357 x10(3)/[facility] RDWSD 45.7 37.0 - 46.0 fL [facility] RDWCV 14.7(H) 11.5 - 14.1 % [facility] MPV 10.0 7.6 - 12.9 [facility]ATORY nRBC % Auto 0.0 % [facility] nRBC Abs Auto 0.000 0.000 - 0.000 x10(3)/[facility] Blood specimen (specimen) 05/02/2020 3:13 PM EDT 05/02/2020 3:26 PM EDT Narrative Resulting Agency Comment Spec In Lab Milagros Velazquez MD HEMATOLOGY ORDERABLE S Performing Organization Address [facility] [address]/ZIP Co de Phone Number [facility] [place] [place] [address] * (ABNORMAL) POCT Glucose (05/02/2020 11:32 AM EDT) POC Glucose 233(H) 65 - 199 mg/dL [facility] Comment: Supplemental ranges: <140 mg/dL before meals <180 mg/dL all other times of the day Blood specimen (specimen) 05/02/2020 11:32 AM EDT 05/02/2020 11:32 AM EDT Milagros Velazquez MD POINT OF CARE TEST O RDERABLES Performing Organization Address City/[facility] [address]/ZIP Co de Phone Number [facility] [place] [address] * POCT Glucose (05/02/2020 7:46 AM EDT) [facility] POC Glucose 178 65 - 199 mg/dL [facility] Comment: Supplemental ranges: <140 mg/dL before meals <180 mg/dL all other times of the day Blood specimen (specimen) 05/02/2020 7:46 AM EDT 05/02/2020 7:46 AM EDT Milagros Velazquez MD POINT OF CARE TEST O RDERABLES Performing Organization Address City/[facility] [address]/ZIP Co de Phone Number [facility] [place] [address] * pro-Brain Natriuretic Peptide (05/02/2020 6:13 AM EDT) [facility] ProBNP 248 <=450 pg/mL [facility] Blood specimen (specimen) Venous Draw / Unknown 05/02/2020 6:13 AM EDT 05/02/2020 6:41 AM EDT Narrative Resulting Agency Comment Spec In Lab Milagros Velazquez MD CHEMISTRY ORDERABLES Performing Organization Address City/[facility] [address]/ZIP Co de Phone Number [facility] [place] [place] [address] * (ABNORMAL) Differential, Automated (05/02/2020 6:13 AM EDT) [facility] Neutrophils % 71.3 % [facility] Neutr Abs (ANC) 9.88(H) 1.70 - 6.10 x10(3)/mc L [facility] Lymphocytes % 18.6 % [facility] Lymphocytes Abs 2.6 0.9 - 3.2 x10(3)/mc L [facility] Monocytes % 6.5 % [facility] Monocyte Abs 0.9 0.3 - 0.9 x10(3)/mc L [facility] Eosinophils % 2.4 % [facility] Eosinophils Abs 0.3 0.0 - 0.4 x10(3)/[facility]ORATORY Basophils % 0.6 % [facility] Basophils Abs 0.1 0.0 - 0.1 x10(3)/[facility] Immature Gran % 0.60 % [facility] Comment: Immature granulocytes(IG's)percentage and absolute count will include metamyelocytes, myelocytes, and promyelocytes. Blood smears from CBCs yielding IG's will be scanned manually for concordance. If this scan disagrees with the automated IG or if promyelocytes are noted, a manual differential will be performed. Nanci Gran Abs 0.09(H) 0.00 - 0.04 x10(3)/[facility] Blood specimen (specimen) 05/02/2020 6:13 AM EDT 05/02/2020 6:31 AM EDT Narrative Resulting Agency Comment Spec In Lab Davon Leung MD HEMATOLOGY ORDERABLE S [facility] [place] [address] * (ABNORMAL) Hemogram (05/02/2020 6:13 AM EDT) WBC 13.9(H) 4.0 - 9.5 x10(3)/[facility] RBC 3.24(L) 4.00 - 5.21 x10(6)/[facility] Hemoglobin 8.9(L) 11.7 - 15.5 gm/dL [facility] Hematocrit 27.5(L) 35.7 - 45.8 % [facility] MCV 84.9 82.6 - 94.4 fL [facility] MCH 27.5 27.1 - 32.0 pg [facility] MCHC 32.4 31.7 - 35.0 gm/dL [facility] Platelets 405(H) 145 - 357 x10(3)/[facility]ORY RDWSD 45.0 37.0 - 46.0 [facility] RDWCV 14.7(H) 11.5 - 14.1 % [facility] MPV 10.2 7.6 - 12.9 [facility] nRBC % Auto 0.0 % [facility] nRBC Abs Auto 0.000 0.000 - 0.000 x10(3)/[facility] Blood specimen (specimen) 05/02/2020 6:13 AM EDT 05/02/2020 6:31 AM EDT Narrative Resulting Agency Comment Spec In Lab Davon Leung MD HEMATOLOGY ORDERABLE S Performing Organization Address [facility] [address]/ZIP Co de Phone Number [facility] [place] [place] [address] * Magnesium (05/02/2020 6:13 AM EDT) Magnesium 0.85 0.69 - 1.07 mmol/L [facility] Blood specimen (specimen) 05/02/2020 6:13 AM EDT 05/02/2020 6:31 AM EDT Narrative Resulting Agency Comment Spec In Lab Dale Dash MD CHEMISTRY ORDERABLES Performing Organization Address [facility] [address]/ZIP Co de Phone Number [facility] [place] [address] * (ABNORMAL) Comprehensive metabolic panel (non-fasting) (05/02/2020 6:13 AM EDT) Glucose Lvl 164 65 - 199 mg/dL [facility] Comment:Diabetes: >=200 mg/d L plus symptoms BUN 28(H) 8 - 18 mg/dL [facility] Creatinine 0.78 0.70 - 1.20 mg/dL [facility] Sodium 139 135 - 145 mmol/L [facility] Potassium 4.0 3.5 - 5.0 mmol/L [facility] Comment: Please note: ??Patients with WBC >100,000 may have falsely elevated Potassium levels. ??For accurate Potassium quantification in these patients send serum separator tube (gold top) for subsequent determinations. ??Contact the Clinical Chemistry Laboratory if there are any questions. Chloride 105 98 - 107 mmol/L [facility] CO2 23 22 - 31 mmol/L [facility] Anion Gap 11 5 - 15 mmol/L [facility] Calcium 8.9 8.5 - 10.5 mg/dL [facility] Total Protein 5.9(L) 6.1 - 8.0 gm/dL [facility] Albumin 3.0(L) 3.2 - 5.2 gm/dL [facility] AST 9 0 - 30 unit/L [facility] ALT 10 0 - 30 unit/L [facility] Alk Phos 130(H) 35 - 105 unit/L [facility] Total Bilirubin 0.4 0.2 - 1.3 mg/dL [facility] Estimated GFR 72 >=60 mL/min/1. 73 m?? [facility] Comment: The eGFR was calculated using the CKD-EPI equation. As with all creatinine based estimates of kidney function, eGFR values calculated with the CKD-EPI equation are not accurate in patients with acute kidney failure, extremes of body mass or the acutely ill. [email or web address] [place] eGFR 84 >=60 mL/min/1. 73 m?? [facility] Comment: The eGFR was calculated using the CKD-EPI equation. As with all creatinine based estimates of kidney function, eGFR values calculated with the CKD-EPI equation are not accurate in patients with acute kidney failure, extremes of body mass or the acutely ill. [email or web address] Blood specimen (specimen) 05/02/2020 6:13 AM EDT 05/02/2020 6:31 AM EDT Narrative Resulting Agency Comment Spec In Lab Dale Dash MD CHEMISTRY ORDERABLES Performing Organization Address [facility] [address]/[facility] Co de Phone Number [facility] [place] [address] * POCT Glucose (05/02/2020 3:20 AM EDT) POC Glucose 183 65 - 199 mg/dL [facility] Comment: Supplemental ranges: <140 mg/dL before meals <180 mg/dL all other times of the day Blood specimen (specimen) 05/02/2020 3:20 AM EDT 05/02/2020 3:20 AM EDT Milagros Velazquez MD POINT OF CARE TEST O ISAIAH Performing Organization Address [facility] de Phone Number [facility] [place] [address] * (ABNORMAL) POCT Glucose (05/01/2020 11:42 PM EDT) POC Glucose 224(H) 65 - 199 mg/dL [facility] Comment: Supplemental ranges: <140 mg/dL before meals <180 mg/dL all other times of the day Blood specimen (specimen) 05/01/2020 11:42 PM EDT 05/01/2020 11:42 PM EDT Milagros Velazquez MD POINT OF CARE TEST O ISAIAH Performing Organization Address [facility] [address]/[facility] Co de Phone Number [facility] [place] [address] * (ABNORMAL) POCT Glucose (05/01/2020 8:14 PM EDT) POC Glucose 202(H) 65 - 199 mg/dL [facility] Comment: Supplemental ranges: <140 mg/dL before meals <180 mg/dL all other times of the day Blood specimen (specimen) 05/01/2020 8:14 PM EDT 05/01/2020 8:14 PM EDT Milagros Velazquez MD POINT OF CARE TEST O RDERATOAN Performing Organization Address [facility] [address]/[facility] de Phone Number [facility] [place] [address] * (ABNORMAL) POCT Glucose (05/01/2020 4:51 PM EDT) POC Glucose 204(H) 65 - 199 mg/dL [facility] Comment: Supplemental ranges: <140 mg/dL before meals <180 mg/dL all other times of the day Blood specimen (specimen) 05/01/2020 4:51 PM EDT 05/01/2020 4:51 PM EDT Milagros Velazquez MD POINT OF CARE TEST O POOLERATOAN Performing Organization Address [facility] [address] [facility] de Phone Number [facility] [place] [place] [address] * (ABNORMAL) POCT Glucose (05/01/2020 11:52 AM EDT) POC Glucose 213(H) 65 - 199 mg/dL [facility] Comment: Supplemental ranges: <140 mg/dL before meals <180 mg/dL all other times of the day Blood specimen (specimen) 05/01/2020 11:52 AM EDT 05/01/2020 11:52 AM EDT Milagros Velazquez MD POINT OF CARE TEST O POOLERATOAN Performing Organization Address [facility] [address]/[facility] Co de Phone Number [facility] [place] [place] [address] * POCT Glucose (05/01/2020 7:40 AM EDT) POC Glucose 167 65 - 199 mg/dL [facility] Comment: Supplemental ranges: <140 mg/dL before meals <180 mg/dL all other times of the day Blood specimen (specimen) 05/01/2020 7:40 AM EDT 05/01/2020 7:40 AM EDT Dale Dash MD POINT OF CARE TEST O RDERABLES Performing Organization Address City/[facility] [address]/[place] [address] * (ABNORMAL) Differential, Automated (05/01/2020 5:23 AM EDT) Neutrophils % 74.6 % [facility] Neutr Abs (ANC) 10.06(H) 1.70 - 6.10 x10(3)/[facility] LABORATORY Lymphocytes % 14.7 % [facility] Lymphocytes Abs 2.0 0.9 - 3.2 x10(3)/[facility] LABORATORY Monocytes % 6.9 % [facility] Monocyte Abs 0.9 0.3 - 0.9 x10(3)/[facility] LABORATORY Eosinophils % 2.3 % [facility] Eosinophils Abs 0.3 0.0 - 0.4 x10(3)/[facility] LABORATORY Basophils % 0.5 % [facility] Basophils Abs 0.1 0.0 - 0.1 x10(3)/[facility] LABORATORY Immature Gran % 1.00 % [facility] Comment: Immature granulocytes(IG's)percentage and absolute count will include metamyelocytes, myelocytes, and promyelocytes. Blood smears from CBCs yielding IG's will be scanned manually for concordance. If this scan disagrees with the automated IG or if promyelocytes are noted, a manual differential will be performed. Nanci Gran Abs 0.14(H) 0.00 - 0.04 x10(3)/[facility] LABORATORY Blood specimen (specimen) 05/01/2020 5:23 AM EDT 05/01/2020 5:40 AM EDT Narrative Resulting Agency Comment Spec In Lab Davon Leung MD HEMATOLOGY ORDERABLE S Performing Organization Address City/[facility] [address]/[place] [address] * (ABNORMAL) Hemogram (05/01/2020 5:23 AM EDT) WBC 13.5(H) 4.0 - 9.5 x10(3)/[facility] LABORATORY RBC 3.38(L) 4.00 - 5.21 x10(6)/[facility] LABORATORY Hemoglobin 9.2(L) 11.7 - 15.5 gm/dL [facility] Hematocrit 28.6(L) 35.7 - 45.8 % [facility] MCV 84.6 82.6 - 94.4 fL [facility] MCH 27.2 27.1 - 32.0 pg [facility] MCHC 32.2 31.7 - 35.0 gm/dL [facility] Platelets 372(H) 145 - 357 x10(3)/[facility] LABORATORY RDWSD 45.1 37.0 - 46.0 [facility] LABORATORY RDWCV 14.7(H) 11.5 - 14.1 % [facility] MPV 9.9 7.6 - 12.9 [facility] LABORATORY nRBC % Auto 0.0 % [facility] nRBC Abs Auto 0.000 0.000 - 0.000 x10(3)/[facility] LABORATORY Blood specimen (specimen) 05/01/2020 5:23 AM EDT 05/01/2020 5:40 AM EDT Narrative Resulting Agency Comment Spec In Lab Davon Leung MD HEMATOLOGY ORDERABLE S [facility] [place] [address] * Magnesium (05/01/2020 5:23 AM EDT) Magnesium 0.89 0.69 - 1.07 mmol/L [facility] Blood specimen (specimen) 05/01/2020 5:23 AM EDT 05/01/2020 5:40 AM EDT Narrative Resulting Agency Comment Spec In Lab Dale Dash MD CHEMISTRY ORDERABLES [facility] [place] [place] [address] * (ABNORMAL) Comprehensive metabolic panel (non-fasting) (05/01/2020 5:23 AM EDT) Glucose Lvl 170 65 - 199 mg/dL [facility] Comment:Diabetes: >=200 mg/d L plus symptoms BUN 29(H) 8 - 18 mg/dL [facility] Creatinine 0.77 0.70 - 1.20 mg/dL [facility] Sodium 136 135 - 145 mmol/L [facility] Potassium 4.0 3.5 - 5.0 mmol/L [facility] Comment: Please note: ??Patients with WBC >100,000 may have falsely elevated Potassium levels. ??For accurate Potassium quantification in these patients send serum separator tube (gold top) for subsequent determinations. ??Contact the Clinical Chemistry Laboratory if there are any questions. Chloride 104 98 - 107 mmol/L [facility] CO2 22 22 - 31 mmol/L [facility] Anion Gap 10 5 - 15 mmol/L [facility] Calcium 8.8 8.5 - 10.5 mg/dL [facility] Total Protein 6.1 6.1 - 8.0 gm/dL [facility] Albumin 2.9(L) 3.2 - 5.2 gm/dL [facility] AST 10 0 - 30 unit/L [facility] ALT 11 0 - 30 unit/L [facility] Alk Phos 140(H) 35 - 105 unit/L [facility] Total Bilirubin 0.4 0.2 - 1.3 mg/dL [facility] Estimated GFR 73 >=60 mL/min/1. 73 m?? [facility] Comment: The eGFR was calculated using the CKD-EPI equation. As with all creatinine based estimates of kidney function, eGFR values calculated with the CKD-EPI equation are not accurate in patients with acute kidney failure, extremes of body mass or the acutely ill. [email or web address] [place] eGFR 85 >=60 mL/min/1. 73 m?? [facility] Comment: The eGFR was calculated using the CKD-EPI equation. As with all creatinine based estimates of kidney function, eGFR values calculated with the CKD-EPI equation are not accurate in patients with acute kidney failure, extremes of body mass or the acutely ill. [email or web address] [place] Blood specimen (specimen) 05/01/2020 5:23 AM EDT 05/01/2020 5:40 AM EDT Narrative Resulting Agency Comment Spec In Lab Dale Dash MD CHEMISTRY ORDERABLES Performing Organization Address [facility] [address]/ZIP Co de Phone Number [facility] [place] [address] * (ABNORMAL) POCT Glucose (05/01/2020 4:07 AM EDT) POC Glucose 204(H) 65 - 199 mg/dL [facility] Comment: Supplemental ranges: <140 mg/dL before meals <180 mg/dL all other times of the day Blood specimen (specimen) 05/01/2020 4:07 AM EDT 05/01/2020 4:07 AM EDT Dale Dash MD POINT OF CARE TEST O RDERABLES Performing Organization Address [facility] [address]/ZIP Co de Phone Number [facility] [place] [address] * POCT Glucose (04/30/2020 11:31 PM EDT) POC Glucose 196 65 - 199 mg/dL [facility] Comment: Supplemental ranges: <140 mg/dL before meals <180 mg/dL all other times of the day Blood specimen (specimen) 04/30/2020 11:31 PM EDT 04/30/2020 11:31 PM EDT Dale Dash MD POINT OF CARE TEST O ISAIAH Performing Organization Address [facility] [address]/[facility] Co de Phone Number [facility] [place] [address] * (ABNORMAL) POCT Glucose (04/30/2020 8:15 PM EDT) POC Glucose 210(H) 65 - 199 mg/dL [facility] Comment: Supplemental ranges: <140 mg/dL before meals <180 mg/dL all other times of the day Blood specimen (specimen) 04/30/2020 8:15 PM EDT 04/30/2020 8:15 PM EDT Dale Dash MD POINT OF CARE TEST O ISIAAH Performing Organization Address [facility] [address]/[facility] Co de Phone Number [facility] [place] [address] * (ABNORMAL) POCT Glucose (04/30/2020 3:37 PM EDT) POC Glucose 200(H) 65 - 199 mg/dL [facility] Comment: Supplemental ranges: <140 mg/dL before meals <180 mg/dL all other times of the day Blood specimen (specimen) 04/30/2020 3:37 PM EDT 04/30/2020 3:37 PM EDT Dale Dash MD POINT OF CARE TEST O ISAIAH Performing Organization Address [facility] [address]/[facility] Co de Phone Number [facility] [place] [address] * (ABNORMAL) POCT Glucose (04/30/2020 11:38 AM EDT) POC Glucose 258(H) 65 - 199 mg/dL [facility] Comment: Supplemental ranges: <140 mg/dL before meals <180 mg/dL all other times of the day Blood specimen (specimen) 04/30/2020 11:38 AM EDT 04/30/2020 11:38 AM EDT Dale Dash MD POINT OF CARE TEST O RDERABLES Performing Organization Address [facility] [address]/[facility] de Phone Number [facility] [place] [address] * EKG 12 Lead (04/30/2020 8:01 AM EDT) Ventricular rate 56 BPM MUSE SYSTEM Atrial Rate 56 BPM MUSE SYSTEM P-R Interval 158 ms MUSE SYSTEM QRS Duration 116 ms MUSE SYSTEM Q-T Interval 512 ms MUSE SYSTEM QTC Calculated (Bezet) 494 ms MUSE SYSTEM Calculated P [place] 18 degrees MUSE SYSTEM Calculated R [place] 9 degrees MUSE SYSTEM Calculated T [place] -21 degrees MUSE SYSTEM INTERPRETATION Sinus bradycardia Right bundle branch block Abnormal ECG When compared with ECG of 21-APR-2020 18:47, Vent. rate has decreased BY ??41 BPM Left axis deviation is no longer Present I personally reviewed the tracing and edited the fellows interpretation Confirmed by fellow Ross Sood ([id number]) on 04/30/2020 10:25:30 AM Confirmed by MD Ya, Manish ([id number]) on 04/30/2020 4:45:51 PM MUSE SYSTEM 04/30/2020 8:01 AM EDT 04/30/2020 4:45 PM EDT Dale Dash MD ECG ORDERABLES Performing Organization Address [facility] Phone Number MUSE SYSTEM * POCT Glucose (04/30/2020 7:18 AM EDT) POC Glucose 166 65 - 199 mg/dL [facility] Comment: Supplemental ranges: <140 mg/dL before meals <180 mg/dL all other times of the day Blood specimen (specimen) 04/30/2020 7:18 AM EDT 04/30/2020 7:18 AM EDT Dale Dash MD POINT OF CARE TEST O RDERABLES Performing Organization Address [facility]/State/ZIP Co de Phone Number [facility] [place] [address] * (ABNORMAL) Differential, Automated (04/30/2020 6:36 AM EDT) Neutrophils % 75.5 % [facility] Neutr Abs (ANC) 13.00(H) 1.70 - 6.10 x10(3)/[facility] LABORATORY Lymphocytes % 12.6 % [facility] Lymphocytes Abs 2.2 0.9 - 3.2 x10(3)/[facility] LABORATORY Monocytes % 7.6 % [facility] Monocyte Abs 1.3(H) 0.3 - 0.9 x10(3)/[facility] LABORATORY Eosinophils % 2.6 % [facility] Eosinophils Abs 0.4 0.0 - 0.4 x10(3)/[facility] LABORATORY Basophils % 0.5 % [facility] Basophils Abs 0.1 0.0 - 0.1 x10(3)/[facility] LABORATORY Immature Gran % 1.20 % [facility] Comment: Immature granulocytes(IG's)percentage and absolute count will include metamyelocytes, myelocytes, and promyelocytes. Blood smears from CBCs yielding IG's will be scanned manually for concordance. If this scan disagrees with the automated IG or if promyelocytes are noted, a manual differential will be performed. Nanci Gran Abs 0.20(H) 0.00 - 0.04 x10(3)/[facility] LABORATORY Blood specimen (specimen) 04/30/2020 6:36 AM EDT 04/30/2020 6:44 AM EDT Narrative Resulting Agency Comment Spec In Lab Davon Leung MD HEMATOLOGY ORDERABLE S [facility] [place] [address] * (ABNORMAL) Hemogram (04/30/2020 6:36 AM EDT) WBC 17.2(H) 4.0 - 9.5 x10(3)/[facility] LABORATORY RBC 3.60(L) 4.00 - 5.21 x10(6)/[facility] LABORATORY Hemoglobin 9.7(L) 11.7 - 15.5 gm/dL [facility] Hematocrit 31.1(L) 35.7 - 45.8 % [facility] MCV 86.4 82.6 - 94.4 fL [facility] MCH 26.9(L) 27.1 - 32.0 pg [facility] MCHC 31.2(L) 31.7 - 35.0 gm/dL [facility] Platelets 375(H) 145 - 357 x10(3)/[facility] LABORATORY RDWSD 47.2(H) 37.0 - 46.0 [facility] LABORATORY RDWCV 14.9(H) 11.5 - 14.1 % [facility] MPV 9.7 7.6 - 12.9 fL [facility] nRBC % Auto 0.0 % [facility] nRBC Abs Auto 0.000 0.000 - 0.000 x10(3)/[facility] LABORATORY Blood specimen (specimen) 04/30/2020 6:36 AM EDT 04/30/2020 6:44 AM EDT Narrative Resulting Agency Comment Spec In Lab Davon Leung MD HEMATOLOGY ORDERABLE S [facility] [place] [address] * Magnesium (04/30/2020 6:36 AM EDT) Magnesium 0.94 0.69 - 1.07 mmol/L [facility] Blood specimen (specimen) 04/30/2020 6:36 AM EDT 04/30/2020 6:44 AM EDT Narrative Resulting Agency Comment Spec In Lab Dale Dash MD CHEMISTRY ORDERABLES [facility] [place] [address] * (ABNORMAL) Comprehensive metabolic panel (non-fasting) (04/30/2020 6:36 AM EDT) Glucose Lvl 166 65 - 199 mg/dL [facility] Comment:Diabetes: >=200 mg/d L plus symptoms BUN 34(H) 8 - 18 mg/dL [facility] Creatinine 1.05 0.70 - 1.20 mg/dL [facility] Sodium 135 135 - 145 mmol/L [facility] Potassium 3.8 3.5 - 5.0 mmol/L [facility] Comment: Please note: ??Patients with WBC >100,000 may have falsely elevated Potassium levels. ??For accurate Potassium quantification in these patients send serum separator tube (gold top) for subsequent determinations. ??Contact the Clinical Chemistry Laboratory if there are any questions. Chloride 100 98 - 107 mmol/L [facility] CO2 22 22 - 31 mmol/L [facility] Anion Gap 13 5 - 15 mmol/L [facility] Calcium 8.5 8.5 - 10.5 mg/dL [facility] Total Protein 6.3 6.1 - 8.0 gm/dL [facility] Albumin 3.1(L) 3.2 - 5.2 gm/dL [facility] AST 14 0 - 30 unit/L [facility] ALT 12 0 - 30 unit/L [facility] Alk Phos 152(H) 35 - 105 unit/L [facility] Total Bilirubin 0.6 0.2 - 1.3 mg/dL [facility] Estimated GFR 50(L) >=60 mL/min/1. 73 m?? [facility] Comment: The eGFR was calculated using the CKD-EPI equation. As with all creatinine based estimates of kidney function, eGFR values calculated with the CKD-EPI equation are not accurate in patients with acute kidney failure, extremes of body mass or the acutely ill. [email or web address] [place] eGFR 58(L) >=60 mL/min/1. 73 m?? [facility] Comment: The eGFR was calculated using the CKD-EPI equation. As with all creatinine based estimates of kidney function, eGFR values calculated with the CKD-EPI equation are not accurate in patients with acute kidney failure, extremes of body mass or the acutely ill. [email or web address] [place] Blood specimen (specimen) 04/30/2020 6:36 AM EDT 04/30/2020 6:44 AM EDT Narrative Resulting Agency Comment Spec In Lab Dale Dash MD CHEMISTRY ORDERABLES Performing Organization Address [facility] [address]/[facility] Co de Phone Number [facility] [place] [address] * POCT Glucose (04/30/2020 4:14 AM EDT) POC Glucose 190 65 - 199 mg/dL [facility] Comment: Supplemental ranges: <140 mg/dL before meals <180 mg/dL all other times of the day Blood specimen (specimen) 04/30/2020 4:14 AM EDT 04/30/2020 4:14 AM EDT Dale Dash MD POINT OF CARE TEST O RDERABLES Performing Organization Address [facility] [address]/[facility] Co de Phone Number [facility] [address] * (ABNORMAL) POCT Glucose (04/29/2020 11:08 PM EDT) POC Glucose 218(H) 65 - 199 mg/dL [facility] Comment: Supplemental ranges: <140 mg/dL before meals <180 mg/dL all other times of the day Blood specimen (specimen) 04/29/2020 11:08 PM EDT 04/29/2020 11:08 PM EDT Dale Dash MD POINT OF CARE TEST O ISAIAH Performing Organization Address [facility] [address]/[facility] Co de Phone Number [facility] [address] * (ABNORMAL) POCT Glucose (04/29/2020 7:52 PM EDT) POC Glucose 204(H) 65 - 199 mg/dL [facility] Comment: Supplemental ranges: <140 mg/dL before meals <180 mg/dL all other times of the day Blood specimen (specimen) 04/29/2020 7:52 PM EDT 04/29/2020 7:52 PM EDT Dale Dash MD POINT OF CARE TEST O ISAIAH Performing Organization Address [facility] [address]/[facility] Co de Phone Number [facility] [place] [address] * POCT Glucose (04/29/2020 4:17 PM EDT) POC Glucose 165 65 - 199 mg/dL [facility] Comment: Supplemental ranges: <140 mg/dL before meals <180 mg/dL all other times of the day Blood specimen (specimen) 04/29/2020 4:17 PM EDT 04/29/2020 4:17 PM EDT Dale Dash MD POINT OF CARE TEST O ISAIAH Performing Organization Address [facility] [address]/[facility] Co de Phone Number [facility] [place] [address] * Blood culture (04/29/2020 3:28 PM EDT) Blood Culture No growth at 5 days. [facility] Blood specimen (specimen) STRUCTURE OF RIGHT HAND / Unknown 04/29/2020 3:28 PM EDT 04/29/2020 4:21 PM EDT Narrative Resulting Agency Comment Spec In Lab Dale Dash MD MICROBIOLOGY - BLOOD ORDERABLES Performing Organization Address [facility] [address]/[facility] Co de Phone Number [facility] [place] [address] * Blood culture (04/29/2020 3:28 PM EDT) Blood Culture No growth at 5 days. [facility] Blood specimen (specimen) STRUCTURE OF LEFT FOREARM / Unknown 04/29/2020 3:28 PM EDT 04/29/2020 4:21 PM EDT Comment:#1 Narrative Resulting Agency Comment Spec In Lab Dale Dash MD MICROBIOLOGY - BLOOD ORDERABLES Performing Organization Address [facility] [address]/[facility] Co de Phone Number [facility] [place] [address] * (ABNORMAL) POCT Glucose (04/29/2020 11:55 AM EDT) POC Glucose 227(H) 65 - 199 mg/dL [facility] Comment: Supplemental ranges: <140 mg/dL before meals <180 mg/dL all other times of the day Blood specimen (specimen) 04/29/2020 11:55 AM EDT 04/29/2020 11:55 AM EDT Dale Dash MD POINT OF CARE TEST O RDERABLES Performing Organization Address [facility] [address]/[facility] Co de Phone Number [facility] [place] [address] * POCT Glucose (04/29/2020 7:38 AM EDT) POC Glucose 125 65 - 199 mg/dL [facility] Comment: Supplemental ranges: <140 mg/dL before meals <180 mg/dL all other times of the day Blood specimen (specimen) 04/29/2020 7:38 AM EDT 04/29/2020 7:38 AM EDT Dale Dash MD POINT OF CARE TEST O RDERABLES Performing Organization Address City/[facility] [address]/ZIP Co de Phone Number [facility] [place] [address] * (ABNORMAL) Differential, Automated (04/29/2020 4:17 AM EDT) Neutrophils % 78.6 % [facility] Neutr Abs (ANC) 14.16(H) 1.70 - 6.10 x10(3)/[facility] LABORATORY Lymphocytes % 10.5 % [facility] Lymphocytes Abs 1.9 0.9 - 3.2 x10(3)/[facility] LABORATORY Monocytes % 6.4 % [facility] Monocyte Abs 1.2(H) 0.3 - 0.9 x10(3)/[facility] LABORATORY Eosinophils % 2.1 % [facility] Eosinophils Abs 0.4 0.0 - 0.4 x10(3)/[facility] LABORATORY Basophils % 0.6 % [facility] Basophils Abs 0.1 0.0 - 0.1 x10(3)/[facility] LABORATORY Immature Gran % 1.80 % [facility] Comment: Immature granulocytes(IG's)percentage and absolute count will include metamyelocytes, myelocytes, and promyelocytes. Blood smears from CBCs yielding IG's will be scanned manually for concordance. If this scan disagrees with the automated IG or if promyelocytes are noted, a manual differential will be performed. Nanci Gran Abs 0.32(H) 0.00 - 0.04 x10(3)/[facility] LABORATORY Blood specimen (specimen) 04/29/2020 4:17 AM EDT 04/29/2020 4:47 AM EDT Narrative Resulting Agency Comment Spec In Lab Davon Leung MD HEMATOLOGY ORDERABLE S Performing Organization Address City/[facility] [address]/ZIP Co de Phone Number [facility] [address] * (ABNORMAL) Hemogram (04/29/2020 4:17 AM EDT) WBC 18.0(H) 4.0 - 9.5 x10(3)/[facility] LABORATORY RBC 3.63(L) 4.00 - 5.21 x10(6)/[facility] LABORATORY Hemoglobin 9.8(L) 11.7 - 15.5 gm/dL [facility] Hematocrit 30.1(L) 35.7 - 45.8 % [facility] MCV 82.9 82.6 - 94.4 fL [facility] MCH 27.0(L) 27.1 - 32.0 pg [facility] MCHC 32.6 31.7 - 35.0 gm/dL [facility] Platelets 397(H) 145 - 357 x10(3)/[facility] LABORATORY RDWSD 44.8 37.0 - 46.0 [facility] LABORATORY RDWCV 14.8(H) 11.5 - 14.1 % [facility] MPV 9.7 7.6 - 12.9 [facility] LABORATORY nRBC % Auto 0.0 % [facility] nRBC Abs Auto 0.000 0.000 - 0.000 x10(3)/[facility] LABORATORY Blood specimen (specimen) 04/29/2020 4:17 AM EDT 04/29/2020 4:47 AM EDT Narrative Resulting Agency Comment Spec In Lab Davon Leung MD HEMATOLOGY ORDERABLE S [facility] [place] [address] * Magnesium (04/29/2020 4:17 AM EDT) Magnesium 0.83 0.69 - 1.07 mmol/L [facility] Blood specimen (specimen) 04/29/2020 4:17 AM EDT 04/29/2020 4:47 AM EDT Narrative Resulting Agency Comment Spec In Lab Dale Dash MD CHEMISTRY ORDERABLES [facility] [place] [address] * (ABNORMAL) Comprehensive metabolic panel (non-fasting) (04/29/2020 4:17 AM EDT) Glucose Lvl 152 65 - 199 mg/dL [facility] Comment:Diabetes: >=200 mg/d L plus symptoms BUN 28(H) 8 - 18 mg/dL [facility] Comment:result rechecked-ssd Creatinine 0.96 0.70 - 1.20 mg/dL [facility] Sodium 136 135 - 145 mmol/L [facility] Potassium 3.9 3.5 - 5.0 mmol/L [facility] Comment: Please note: ??Patients with WBC >100,000 may have falsely elevated Potassium levels. ??For accurate Potassium quantification in these patients send serum separator tube (gold top) for subsequent determinations. ??Contact the Clinical Chemistry Laboratory if there are any questions. Chloride 103 98 - 107 mmol/L [facility] CO2 22 22 - 31 mmol/L [facility] Anion Gap 11 5 - 15 mmol/L [facility] Calcium 8.5 8.5 - 10.5 mg/dL [facility] Total Protein 6.0(L) 6.1 - 8.0 gm/dL [facility] Albumin 2.8(L) 3.2 - 5.2 gm/dL [facility] AST 15 0 - 30 unit/L [facility] ALT 16 0 - 30 unit/L [facility] Alk Phos 177(H) 35 - 105 unit/L [facility] Total Bilirubin 0.5 0.2 - 1.3 mg/dL [facility] Estimated GFR 56(L) >=60 mL/min/1. 73 m?? [facility] Comment: The eGFR was calculated using the CKD-EPI equation. As with all creatinine based estimates of kidney function, eGFR values calculated with the CKD-EPI equation are not accurate in patients with acute kidney failure, extremes of body mass or the acutely ill. [email or web address] [place] eGFR 65 >=60 mL/min/1. 73 m?? [facility] Comment: The eGFR was calculated using the CKD-EPI equation. As with all creatinine based estimates of kidney function, eGFR values calculated with the CKD-EPI equation are not accurate in patients with acute kidney failure, extremes of body mass or the acutely ill. [email or web address] [place] Blood specimen (specimen) 04/29/2020 4:17 AM EDT 04/29/2020 4:47 AM EDT Narrative Resulting Agency Comment Spec In Lab Dale Dash MD CHEMISTRY ORDERABLES Performing Organization Address [facility] [address]/ZIP Co de Phone Number [facility] [place] [place] [address] * POCT Glucose (04/29/2020 4:16 AM EDT) POC Glucose 152 65 - 199 mg/dL [facility] Comment: Supplemental ranges: <140 mg/dL before meals <180 mg/dL all other times of the day Blood specimen (specimen) 04/29/2020 4:16 AM EDT 04/29/2020 4:16 AM EDT Dale Dash MD POINT OF CARE TEST O RDERABLES [facility] [place] [place] [address] * POCT Glucose (04/29/2020 12:34 AM EDT) POC Glucose 171 65 - 199 mg/dL [facility] Comment: Supplemental ranges: <140 mg/dL before meals <180 mg/dL all other times of the day Blood specimen (specimen) 04/29/2020 12:34 AM EDT 04/29/2020 12:34 AM EDT Dale Dash MD POINT OF CARE TEST O ISAIAH Performing Organization Address [facility] [address]/ZIP Co de Phone Number [facility] [place] [address] * (ABNORMAL) POCT Glucose (04/28/2020 8:36 PM EDT) POC Glucose 205(H) 65 - 199 mg/dL [facility] Comment: Supplemental ranges: <140 mg/dL before meals <180 mg/dL all other times of the day Blood specimen (specimen) 04/28/2020 8:36 PM EDT 04/28/2020 8:36 PM EDT Dale Dash MD POINT OF CARE TEST O ISAIAH Performing Organization Address [facility] [address]/[facility] Co de Phone Number [facility] [place] [address] * POCT Glucose (04/28/2020 4:05 PM EDT) POC Glucose 185 65 - 199 mg/dL [facility] Comment: Supplemental ranges: <140 mg/dL before meals <180 mg/dL all other times of the day Blood specimen (specimen) 04/28/2020 4:05 PM EDT 04/28/2020 4:05 PM EDT Abiodun Chun MD POINT OF CARE TEST O RDERATOAN Performing Organization Address City/[facility] [address]/ZIP Co de Phone Number [facility] [place] [address] * POCT Glucose (04/28/2020 12:47 PM EDT) POC Glucose 135 65 - 199 mg/dL [facility] Comment: Supplemental ranges: <140 mg/dL before meals <180 mg/dL all other times of the day Blood specimen (specimen) 04/28/2020 12:47 PM EDT 04/28/2020 12:47 PM EDT Abiodun Chun MD POINT OF CARE TEST O ISAIAH Performing Organization Address City/[facility] [address]/ZIP Co de Phone Number [facility] [place] [address] * POCT Glucose (04/28/2020 10:23 AM EDT) POC Glucose 150 65 - 199 mg/dL [facility] Comment: Supplemental ranges: <140 mg/dL before meals <180 mg/dL all other times of the day Blood specimen (specimen) 04/28/2020 10:23 AM EDT 04/28/2020 10:23 AM EDT Abiodun Chun MD POINT OF CARE TEST O ISAIAH Performing Organization Address City/[facility] [address]/ZIP Co de Phone Number [facility] [place] [place] [address] * CT Guided Drain Peritoneal (04/28/2020 10:20 [...] approximately 2-3 weeks (already ordered by IR). Certified Master Locksmith(s): Resident/Fellow: None. Attending: Dr. Jos Collins Procedure/Teaching [...] yellow purulent fluid removed. Procedure Note Jos Collins Dedrick, DO - 04/28/2020 RADIOLOGY PROCEDURE NOTE Procedure: [...] in approximately 2-3 weeks (alreadyordered by IR). Certified Master Locksmith(s): Resident/Fellow: None. Attending: Dr. Jos Collins Procedure/Teaching Attestation: I performed the procedure. Moderate Sedation Attestation: I was present during the intra-service timeas documented by IR nurse. Thank you for letting us participate in the care of this patient. Forquestions regarding this report, please contact the number below. Electronically signed by: Jos Collins [facility]([phone]), at 04/28/2020 10:42 AM Abiodun Chun MD IMG CT ORDERABLES * Anaerobic Culture (04/28/2020 10:00 AM EDT) Anaerobic Culture No anaerobic organisms isolated [facility] Fluid specimen (specimen) 04/28/2020 10:00 AM EDT 04/28/2020 10:50 AM EDT Comment:ARABELLA-HEPATIC ABSCESS S, CT GUIDED DRAIN PLACEMENT Narrative Resulting Agency Comment Spec In Lab Jeevan Black MD MICROBIOLOGY - [facility] AL ORDERABLES [facility] [place] [address] * (ABNORMAL) Body Fluid Culture, Aerobic (04/28/2020 10:00 AM EDT) Body Fluid Culture One colony of Raoultella ornithinolytica (Klebsiella ornithinolytica)(A ) [facility] Gram Stain Few Neutrophils seen No microorganisms seen. (A) [facility] Organism Raoultella ornithinolytica (Klebsiella ornithinolytica)(A ) [facility] Fluid specimen (specimen) 04/28/2020 10:00 [...] - GENER AL ORDERABLES Performing Organization Address City/State/[facility] Co de Phone Number [facility] [address] * POCT Glucose (04/28/2020 8:10 AM EDT) POC Glucose 134 65 - 199 mg/dL [facility] Comment: Supplemental ranges: <140 mg/dL before meals <180 mg/dL all other times of the day Blood specimen (specimen) 04/28/2020 8:10 AM EDT 04/28/2020 8:10 AM EDT Abiodun Chun MD POINT OF CARE TEST O RDERABLES [facility] [place] [address] * (ABNORMAL) pro-Brain Natriuretic Peptide (04/28/2020 4:05 AM EDT) ProBNP 852(H) <=450 pg/mL [facility] Blood specimen (specimen) Venous Draw / Unknown 04/28/2020 4:05 AM EDT 04/28/2020 4:25 AM EDT Narrative Resulting Agency Comment Spec In Lab Hong Levi MD CHEMISTRY ORDERABLES Performing Organization Address [facility] [address]/ZIP Co de Phone Number [facility] [place] [place] [address] * (ABNORMAL) Differential, Automated (04/28/2020 4:05 AM EDT) Pathologist [facility] Neutrophils % 71.3 % [facility] Neutr Abs (ANC) 10.55(H) 1.70 - 6.10 x10(3)/mc L [facility] Lymphocytes % 17.3 % [facility] Lymphocytes Abs 2.6 0.9 - 3.2 x10(3)/ L [facility] Monocytes % 5.5 % [facility] Monocyte Abs 0.8 0.3 - 0.9 x10(3)/ L [facility] Eosinophils % 2.8 % [facility] Eosinophils Abs 0.4 0.0 - 0.4 x10(3)/mc L [facility] Basophils % 0.5 % [facility] Basophils Abs 0.1 0.0 - 0.1 x10(3)/ L [facility] Immature Gran % 2.60 % [facility] Comment: Immature granulocytes(IG's)percentage and absolute count will include metamyelocytes, myelocytes, and promyelocytes. Blood smears from CBCs yielding IG's will be scanned manually for concordance. If this scan disagrees with the automated IG or if promyelocytes are noted, a manual differential will be performed. Nanci Gran Abs 0.39(H) 0.00 - 0.04 x10(3)/ L [facility] Blood specimen (specimen) 04/28/2020 4:05 AM EDT 04/28/2020 4:23 AM EDT Narrative Resulting Agency Comment Spec In Lab Hong Levi MD HEMATOLOGY ORDERABLE S [facility] [place] [address] * (ABNORMAL) Hemogram (04/28/2020 4:05 AM EDT) WBC 14.8(H) 4.0 - 9.5 x10(3)/[facility] RBC 3.90(L) 4.00 - 5.21 x10(6)/[facility] Hemoglobin 10.5(L) 11.7 - 15.5 gm/dL [facility] Hematocrit 32.5(L) 35.7 - 45.8 % [facility] MCV 83.3 82.6 - 94.4 fL [facility] MCH 26.9(L) 27.1 - 32.0 pg [facility] MCHC 32.3 31.7 - 35.0 gm/dL [facility] Platelets 421(H) 145 - 357 x10(3)/[facility] LABORATORY RDWSD 44.7 37.0 - 46.0 [facility]ATORY RDWCV 14.6(H) 11.5 - 14.1 % [facility] MPV 9.6 7.6 - 12.9 [facility] nRBC % Auto 0.0 % [facility] nRBC Abs Auto 0.000 0.000 - 0.000 x10(3)/[facility] Blood specimen (specimen) 04/28/2020 4:05 AM EDT 04/28/2020 4:23 AM EDT Narrative Resulting Agency Comment Spec In Lab Hong Levi MD HEMATOLOGY ORDERABLE S Performing Organization Address City/[facility] [address]/ZIP Co de Phone Number [facility] [place] [address] * Magnesium (04/28/2020 4:05 AM EDT) Magnesium 0.78 0.69 - 1.07 mmol/L [facility] Blood specimen (specimen) 04/28/2020 4:05 AM EDT 04/28/2020 4:23 AM EDT Narrative Resulting Agency Comment Spec In Lab Dale Dash MD CHEMISTRY ORDERABLES Performing Organization Address [facility] [address]/[facility] Co de Phone Number [facility] [place] [address] * (ABNORMAL) Comprehensive metabolic panel (non-fasting) (04/28/2020 4:05 AM EDT) Glucose Lvl 149 65 - 199 mg/dL [facility] Comment:Diabetes: >=200 mg/d L plus symptoms BUN 16 8 - 18 mg/dL [facility] Creatinine 0.80 0.70 - 1.20 mg/dL [facility] Sodium 137 135 - 145 mmol/L [facility] Potassium 3.5 3.5 - 5.0 mmol/L [facility] Comment: Please note: ??Patients with WBC >100,000 may have falsely elevated Potassium levels. ??For accurate Potassium quantification in these patients send serum separator tube (gold top) for subsequent determinations. ??Contact the Clinical Chemistry Laboratory if there are any questions. Chloride 105 98 - 107 mmol/L [facility] CO2 21(L) 22 - 31 mmol/L [facility] Anion Gap 11 5 - 15 mmol/L [facility] Calcium 8.7 8.5 - 10.5 mg/dL [facility] Total Protein 6.3 6.1 - 8.0 gm/dL [facility] Albumin 3.0(L) 3.2 - 5.2 gm/dL [facility] AST 12 0 - 30 unit/L [facility] ALT 12 0 - 30 unit/L [facility] Alk Phos 201(H) 35 - 105 unit/L [facility] Total Bilirubin 0.4 0.2 - 1.3 mg/dL [facility] Estimated GFR 70 >=60 mL/min/1. 73 m?? [facility] Comment: The eGFR was calculated using the CKD-EPI equation. As with all creatinine based estimates of kidney function, eGFR values calculated with the CKD-EPI equation are not accurate in patients with acute kidney failure, extremes of body mass or the acutely ill. [email or web address] [place] eGFR 81 >=60 mL/min/1. 73 m?? [facility] Comment: The eGFR was calculated using the CKD-EPI equation. As with all creatinine based estimates of kidney function, eGFR values calculated with the CKD-EPI equation are not accurate in patients with acute kidney failure, extremes of body mass or the acutely ill. [email or web address] [place] Blood specimen (specimen) 04/28/2020 4:05 AM EDT 04/28/2020 4:23 AM EDT Narrative Resulting Agency Comment Spec In Lab Dale Dash MD CHEMISTRY ORDERABLES [facility] [place] [address] * POCT Glucose (04/28/2020 3:28 AM EDT) POC Glucose 161 65 - 199 mg/dL [facility] Comment: Supplemental ranges: <140 mg/dL before meals <180 mg/dL all other times of the day Blood specimen (specimen) 04/28/2020 3:28 AM EDT 04/28/2020 3:28 AM EDT Abiodun Chun MD POINT OF CARE TEST O RDERABLES Performing Organization Address City/[facility] [address]/ZIP Co de Phone Number [facility] [address] * (ABNORMAL) POCT Glucose (04/27/2020 11:33 PM EDT) POC Glucose 205(H) 65 - 199 mg/dL [facility] Comment: Supplemental ranges: <140 mg/dL before meals <180 mg/dL all other times of the day Blood specimen (specimen) 04/27/2020 11:33 PM EDT 04/27/2020 11:33 PM EDT Abiodun Chun MD POINT OF CARE TEST O RDERATOAN Performing Organization Address [facility] [address]/[facility] Co de Phone Number [facility] [place] [address] * (ABNORMAL) POCT Glucose (04/27/2020 8:03 PM EDT) POC Glucose 274(H) 65 - 199 mg/dL [facility] Comment: Supplemental ranges: <140 mg/dL before meals <180 mg/dL all other times of the day Blood specimen (specimen) 04/27/2020 8:03 PM EDT 04/27/2020 8:03 PM EDT Abiodun Chun MD POINT OF CARE TEST O RDERATOAN Performing Organization Address City/[facility] [address]/ZIP Co de Phone Number [facility] [place] [address] * POCT Glucose (04/27/2020 4:23 PM EDT) POC Glucose 155 65 - 199 mg/dL [facility] Comment: Supplemental ranges: <140 mg/dL before meals <180 mg/dL all other times of the day Blood specimen (specimen) 04/27/2020 4:23 PM EDT 04/27/2020 4:23 PM EDT Abiodun Chun MD POINT OF CARE TEST O RDERABLES [facility] [place] [address] * CT Abdomen & Pelvis w Contrast [...] below. ? Electronically signed by: Logan Sanabria [facility] ([phone]), at 04/27/2020 4:29 PM Narrative 04/27/2020 4:29 [...] administration of contrast. Administered 96.0 ml of XVVLVODYH258.00 mg/ml. Oral contrast was administered. COMPARISON: 04/18/2020 [...] POC Glucose 192 65 - 199 mg/dL [facility] Comment: Supplemental ranges: <140 mg/dL before meals <180 mg/dL all other times of the day Blood specimen (specimen) 04/27/2020 11:59 AM EDT 04/27/2020 11:59 AM EDT Abiodun Chun MD POINT OF CARE TEST O RDERABLES [facility] [place] [address] * XR Chest One View (04/27/2020 10:47 [...] below. ? Electronically signed by: Mayte Pollack [facility] ([phone]), at 04/27/2020 11:51 AM Narrative 04/27/2020 11:51 [...] number below. Electronically signed by: Mayte Pollack [facility]([phone]), at 04/27/2020 11:51 AM Abiodun Chun MD IMG DX ORDERABLES * POCT Glucose (04/27/2020 7:43 AM EDT) Pathologist [facility] POC Glucose 138 65 - 199 mg/dL [facility] Comment: Supplemental ranges: <140 mg/dL before meals <180 mg/dL all other times of the day Blood specimen (specimen) 04/27/2020 7:43 AM EDT 04/27/2020 7:43 AM EDT Abiodun Chun MD POINT OF CARE TEST O RDERABLES [facility] [place] [place] [address] * (ABNORMAL) Differential, Automated (04/27/2020 4:41 AM EDT) Neutrophils % 70.7 % [facility] Neutr Abs (ANC) 10.64(H) 1.70 - 6.10 x10(3)/mc L [facility] Lymphocytes % 14.9 % [facility] Lymphocytes Abs 2.2 0.9 - 3.2 x10(3)/mc L [facility] Monocytes % 6.2 % [facility] Monocyte Abs 0.9 0.3 - 0.9 x10(3)/ L [facility] Eosinophils % 3.3 % [facility] Eosinophils Abs 0.5(H) 0.0 - 0.4 x10(3)/ L [facility] Basophils % 0.5 % [facility] Basophils Abs 0.1 0.0 - 0.1 x10(3)/[facility]OR[facility] Immature Gran % 4.40 % [facility] Comment: Immature granulocytes(IG's)percentage and absolute count will include metamyelocytes, myelocytes, and promyelocytes. Blood smears from CBCs yielding IG's will be scanned manually for concordance. If this scan disagrees with the automated IG or if promyelocytes are noted, a manual differential will be performed. Nanci Gran Abs 0.67(H) 0.00 - 0.04 x10(3)/[facility] Blood specimen (specimen) 04/27/2020 4:41 AM EDT 04/27/2020 4:54 AM EDT Narrative Resulting Agency Comment Spec In Lab Hong Levi MD HEMATOLOGY ORDERABLE S [facility] [place] [address] * (ABNORMAL) Hemogram (04/27/2020 4:41 AM EDT) WBC 15.1(H) 4.0 - 9.5 x10(3)/[facility] RBC 3.83(L) 4.00 - 5.21 x10(6)/[facility] Hemoglobin 10.3(L) 11.7 - 15.5 gm/dL [facility] Hematocrit 32.1(L) 35.7 - 45.8 % [facility] MCV 83.8 82.6 - 94.4 fL [facility] MCH 26.9(L) 27.1 - 32.0 pg [facility] MCHC 32.1 31.7 - 35.0 gm/dL [facility] Platelets 422(H) 145 - 357 x10(3)/[facility] RDWSD 44.9 37.0 - 46.0 fL [facility] RDWCV 14.8(H) 11.5 - 14.1 % [facility] MPV 9.6 7.6 - 12.9 fL [facility] nRBC % Auto 0.1 % [facility] nRBC Abs Auto 0.020(H) 0.000 - 0.000 x10(3)/[facility] Blood specimen (specimen) 04/27/2020 4:41 AM EDT 04/27/2020 4:54 AM EDT Narrative Resulting Agency Comment Spec In Lab Hong Levi MD HEMATOLOGY ORDERABLE S [facility] [place] [place] [address] * Magnesium (04/27/2020 4:41 AM EDT) Pathologist [facility] Magnesium 0.76 0.69 - 1.07 mmol/L [facility] Blood specimen (specimen) 04/27/2020 4:41 AM EDT 04/27/2020 4:54 AM EDT Narrative Resulting Agency Comment Spec In Lab Dale Dash MD CHEMISTRY ORDERABLES [facility] [place] [place] [address] * (ABNORMAL) Comprehensive metabolic panel (non-fasting) (04/27/2020 4:41 AM EDT) Glucose Lvl 167 65 - 199 mg/dL [facility] Comment:Diabetes: >=200 mg/d L plus symptoms BUN 12 8 - 18 mg/dL [facility] Creatinine 0.63(L) 0.70 - 1.20 mg/dL [facility] Sodium 138 135 - 145 mmol/L [facility] Potassium 3.5 3.5 - 5.0 mmol/L [facility] Comment: Please note: ??Patients with WBC >100,000 may have falsely elevated Potassium levels. ??For accurate Potassium quantification in these patients send serum separator tube (gold top) for subsequent determinations. ??Contact the Clinical Chemistry Laboratory if there are any questions. Chloride 103 98 - 107 mmol/L [facility] CO2 23 22 - 31 mmol/L [facility] Anion Gap 12 5 - 15 mmol/L [facility] Calcium 8.7 8.5 - 10.5 mg/dL [facility] Total Protein 6.2 6.1 - 8.0 gm/dL [facility] Albumin 2.9(L) 3.2 - 5.2 gm/dL [facility] AST 12 0 - 30 unit/L [facility] ALT 13 0 - 30 unit/L [facility] Alk Phos 230(H) 35 - 105 unit/L [facility] Total Bilirubin 0.5 0.2 - 1.3 mg/dL [facility] Estimated GFR 85 >=60 mL/min/1. 73 m?? [facility] Comment: The eGFR was calculated using the CKD-EPI equation. As with all creatinine based estimates of kidney function, eGFR values calculated with the CKD-EPI equation are not accurate in patients with acute kidney failure, extremes of body mass or the acutely ill. [email or web address] [place] eGFR 99 >=60 mL/min/1. 73 m?? [facility] Comment: The eGFR was calculated using the CKD-EPI equation. As with all creatinine based estimates of kidney function, eGFR values calculated with the CKD-EPI equation are not accurate in patients with acute kidney failure, extremes of body mass or the acutely ill. [email or web address] Blood specimen (specimen) 04/27/2020 4:41 AM EDT 04/27/2020 4:54 AM EDT Narrative Resulting Agency Comment Spec In Lab Dale Dash MD CHEMISTRY ORDERABLES Performing Organization Address [facility] [address]/ZIP Co de Phone Number [facility] [place] [address] * POCT Glucose (04/27/2020 4:12 AM EDT) POC Glucose 170 65 - 199 mg/dL [facility] Comment: Supplemental ranges: <140 mg/dL before meals <180 mg/dL all other times of the day Blood specimen (specimen) 04/27/2020 4:12 AM EDT 04/27/2020 4:12 AM EDT Abiodun Chun MD POINT OF CARE TEST O RDERABLES Performing Organization Address [facility] [address]/[facility] Co de Phone Number [facility] [place] [address] * POCT Glucose (04/27/2020 12:14 AM EDT) POC Glucose 187 65 - 199 mg/dL [facility] Comment: Supplemental ranges: <140 mg/dL before meals <180 mg/dL all other times of the day Blood specimen (specimen) 04/27/2020 12:14 AM EDT 04/27/2020 12:14 AM EDT Abiodun Chun MD POINT OF CARE TEST O RDERABLES Performing Organization Address City/[facility] [address]/ZIP Co de Phone Number [facility] [place] [address] * POCT Glucose (04/26/2020 8:19 PM EDT) POC Glucose 186 65 - 199 mg/dL [facility] Comment: Supplemental ranges: <140 mg/dL before meals <180 mg/dL all other times of the day Blood specimen (specimen) 04/26/2020 8:19 PM EDT 04/26/2020 8:19 PM EDT Abiodun Chun MD POINT OF CARE TEST O RDERABLES Performing Organization Address City/[facility] [address]/ZIP Co de Phone Number [facility] [place] [address] * POCT Glucose (04/26/2020 4:52 PM EDT) POC Glucose 162 65 - 199 mg/dL [facility] Comment: Supplemental ranges: <140 mg/dL before meals <180 mg/dL all other times of the day Blood specimen (specimen) 04/26/2020 4:52 PM EDT 04/26/2020 4:52 PM EDT Abiodun Chun MD POINT OF CARE TEST O RDERABLES Performing Organization Address [facility] [address]/ZIP Co de Phone Number [facility] [place] [address] * (ABNORMAL) POCT Glucose (04/26/2020 11:50 AM EDT) POC Glucose 215(H) 65 - 199 mg/dL [facility] Comment: Supplemental ranges: <140 mg/dL before meals <180 mg/dL all other times of the day Blood specimen (specimen) 04/26/2020 11:50 AM EDT 04/26/2020 11:50 AM EDT Abiodun Chun MD POINT OF CARE TEST O RDERABLES Performing Organization Address City/[facility] [address]/[facility] Co de Phone Number [facility] [place] [address] * POCT Glucose (04/26/2020 7:43 AM EDT) POC Glucose 175 65 - 199 mg/dL [facility] Comment: Supplemental ranges: <140 mg/dL before meals <180 mg/dL all other times of the day Blood specimen (specimen) 04/26/2020 7:43 AM EDT 04/26/2020 7:43 AM EDT Abiodun Chun MD POINT OF CARE TEST O RDERABLES [facility] [place] [address] * POCT Glucose (04/26/2020 5:07 AM EDT) POC Glucose 163 65 - 199 mg/dL [facility] Comment: Supplemental ranges: <140 mg/dL before meals <180 mg/dL all other times of the day Blood specimen (specimen) 04/26/2020 5:07 AM EDT 04/26/2020 5:07 AM EDT Abiodun Chun MD POINT OF CARE TEST O POOLERABLES Performing Organization Address City/[facility] [address]/ZIP Co de Phone Number [facility] [place] [address] * (ABNORMAL) Differential, Automated (04/26/2020 4:42 AM EDT) Neutrophils % 66.7 % [facility] Neutr Abs (ANC) 9.28(H) 1.70 - 6.10 x10(3)/mc L [facility] Lymphocytes % 16.8 % [facility] Lymphocytes Abs 2.3 0.9 - 3.2 x10(3)/mc L [facility] Monocytes % 5.7 % [facility] Monocyte Abs 0.8 0.3 - 0.9 x10(3)/mc L [facility] Eosinophils % 3.7 % [facility] Eosinophils Abs 0.5(H) 0.0 - 0.4 x10(3)/mc L [facility] Basophils % 0.8 % [facility] Basophils Abs 0.1 0.0 - 0.1 x10(3)/mc L [facility] Immature Gran % 6.30 % [facility] Comment: Immature granulocytes(IG's)percentage and absolute count will include metamyelocytes, myelocytes, and promyelocytes. Blood smears from CBCs yielding IG's will be scanned manually for concordance. If this scan disagrees with the automated IG or if promyelocytes are noted, a manual differential will be performed. Nanci Gran Abs 0.88(H) 0.00 - 0.04 x10(3)/ L [facility] Blood specimen (specimen) 04/26/2020 4:42 AM EDT 04/26/2020 4:54 AM EDT Narrative Resulting Agency Comment Spec In Lab Hong Levi MD HEMATOLOGY ORDERABLE S [facility] [place] [address] * (ABNORMAL) Hemogram (04/26/2020 4:42 AM EDT) WBC 13.9(H) 4.0 - 9.5 x10(3)/[facility] LABORATORY RBC 3.72(L) 4.00 - 5.21 x10(6)/[facility] Hemoglobin 10.0(L) 11.7 - 15.5 gm/dL [facility] Hematocrit 31.5(L) 35.7 - 45.8 % [facility] MCV 84.7 82.6 - 94.4 fL [facility] MCH 26.9(L) 27.1 - 32.0 pg [facility] MCHC 31.7 31.7 - 35.0 gm/dL [facility] Platelets 398(H) 145 - 357 x10(3)/[facility]ORATORY RDWSD 46.0 37.0 - 46.0 [facility] LABORATORY RDWCV 14.9(H) 11.5 - 14.1 % [facility] MPV 9.2 7.6 - 12.9 [facility]ORY nRBC % Auto 0.2 % [facility] nRBC Abs Auto 0.030(H) 0.000 - 0.000 x10(3)/mcL [facility] Blood specimen (specimen) 04/26/2020 4:42 AM EDT 04/26/2020 4:54 AM EDT Narrative Resulting Agency Comment Spec In Lab Hong Levi MD HEMATOLOGY ORDERABLE S Performing Organization Address [facility] [address]/[facility] Co de Phone Number [facility] [place] [address] * Magnesium (04/26/2020 4:42 AM EDT) Magnesium 0.86 0.69 - 1.07 mmol/L [facility] Blood specimen (specimen) 04/26/2020 4:42 AM EDT 04/26/2020 4:54 AM EDT Narrative Resulting Agency Comment Spec In Lab Dale Dash MD CHEMISTRY ORDERABLES Performing Organization Address [facility] [address]/[facility] Co de Phone Number [facility] [place] [address] * (ABNORMAL) Comprehensive metabolic panel (non-fasting) (04/26/2020 4:42 AM EDT) Glucose Lvl 172 65 - 199 mg/dL [facility] Comment:Diabetes: >=200 mg/d L plus symptoms BUN 14 8 - 18 mg/dL [facility] Creatinine 0.67(L) 0.70 - 1.20 mg/dL [facility] Sodium 142 135 - 145 mmol/L [facility] Potassium 3.3(L) 3.5 - 5.0 mmol/L [facility] Comment: Please note: ??Patients with WBC >100,000 may have falsely elevated Potassium levels. ??For accurate Potassium quantification in these patients send serum separator tube (gold top) for subsequent determinations. ??Contact the Clinical Chemistry Laboratory if there are any questions. Chloride 107 98 - 107 mmol/L [facility] CO2 22 22 - 31 mmol/L [facility] Anion Gap 13 5 - 15 mmol/L [facility] Calcium 8.6 8.5 - 10.5 mg/dL [facility] Total Protein 6.3 6.1 - 8.0 gm/dL [facility] Albumin 2.8(L) 3.2 - 5.2 gm/dL [facility] AST 14 0 - 30 unit/L [facility] ALT 14 0 - 30 unit/L [facility] Alk Phos 253(H) 35 - 105 unit/L [facility] Total Bilirubin 0.4 0.2 - 1.3 mg/dL [facility] Estimated GFR 84 >=60 mL/min/1. 73 m?? [facility] Comment: The eGFR was calculated using the CKD-EPI equation. As with all creatinine based estimates of kidney function, eGFR values calculated with the CKD-EPI equation are not accurate in patients with acute kidney failure, extremes of body mass or the acutely ill. [email or web address] eGFR 97 >=60 mL/min/1. 73 m?? [facility] Comment: The eGFR was calculated using the CKD-EPI equation. As with all creatinine based estimates of kidney function, eGFR values calculated with the CKD-EPI equation are not accurate in patients with acute kidney failure, extremes of body mass or the acutely ill. [email or web address] Blood specimen (specimen) 04/26/2020 4:42 AM EDT 04/26/2020 4:54 AM EDT Narrative Resulting Agency Comment Spec In Lab Dale Dash MD CHEMISTRY ORDERABLES [facility] [place] [address] * (ABNORMAL) POCT Glucose (04/25/2020 10:39 PM EDT) POC Glucose 215(H) 65 - 199 mg/dL [facility] Comment: Supplemental ranges: <140 mg/dL before meals <180 mg/dL all other times of the day Blood specimen (specimen) 04/25/2020 10:39 PM EDT 04/25/2020 10:39 PM EDT Abiodun Chun MD POINT OF CARE TEST O RDERABLES Performing Organization Address City/[facility] [address]/[facility] Co de Phone Number [facility] [place] [place] [address] * POCT Glucose (04/25/2020 8:54 PM EDT) POC Glucose 175 65 - 199 mg/dL [facility] Comment: Supplemental ranges: <140 mg/dL before meals <180 mg/dL all other times of the day Blood specimen (specimen) 04/25/2020 8:54 PM EDT 04/25/2020 8:54 PM EDT Abiodun Chun MD POINT OF CARE TEST O RDERABLES Performing Organization Address [facility] [address]/[facility] Co de Phone Number [facility] [place] [address] * POCT Glucose (04/25/2020 7:43 PM EDT) POC Glucose 198 65 - 199 mg/dL [facility] Comment: Supplemental ranges: <140 mg/dL before meals <180 mg/dL all other times of the day Blood specimen (specimen) 04/25/2020 7:43 PM EDT 04/25/2020 7:43 PM EDT Abiodun Chun MD POINT OF CARE TEST O RDERABLES Performing Organization Address City/[facility] [address]/[facility] Co de Phone Number [facility] [place] [address] * POCT Glucose (04/25/2020 5:35 PM EDT) POC Glucose 188 65 - 199 mg/dL [facility] Comment: Supplemental ranges: <140 mg/dL before meals <180 mg/dL all other times of the day Blood specimen (specimen) 04/25/2020 5:35 PM EDT 04/25/2020 5:35 PM EDT Abiodun Chun MD POINT OF CARE TEST O RDERABLES Performing Organization Address [facility] [address]/[facility] Co de Phone Number [facility] [place] [place] [address] * POCT Glucose (04/25/2020 12:21 PM EDT) POC Glucose 199 65 - 199 mg/dL [facility] Comment: Supplemental ranges: <140 mg/dL before meals <180 mg/dL all other times of the day Blood specimen (specimen) 04/25/2020 12:21 PM EDT 04/25/2020 12:21 PM EDT Abiodun Chun MD POINT OF CARE TEST O RDERATOAN Performing Organization Address [facility] [address]/[facility] de Phone Number [facility] [place] [address] * POCT Glucose (04/25/2020 7:37 AM EDT) POC Glucose 147 65 - 199 mg/dL [facility] Comment: Supplemental ranges: <140 mg/dL before meals <180 mg/dL all other times of the day Blood specimen (specimen) 04/25/2020 7:37 AM EDT 04/25/2020 7:37 AM EDT Abiodun Chun MD POINT OF CARE TEST O RDERABLES Performing Organization Address [facility] [address]/[facility] de Phone Number [facility] [place] [address] * (ABNORMAL) Differential, Automated (04/25/2020 5:05 AM EDT) Neutrophils % 63.5 % [facility] Neutr Abs (ANC) 8.95(H) 1.70 - 6.10 x10(3)/[facility] LABORATORY Lymphocytes % 18.9 % [facility] Lymphocytes Abs 2.7 0.9 - 3.2 x10(3)/[facility] Monocytes % 6.8 % [facility] Monocyte Abs 1.0(H) 0.3 - 0.9 x10(3)/[facility] Eosinophils % 3.3 % [facility] Eosinophils Abs 0.5(H) 0.0 - 0.4 x10(3)/[facility] Basophils % 0.9 % [facility] Basophils Abs 0.1 0.0 - 0.1 x10(3)/[facility] Immature Gran % 6.60 % [facility] Comment: Immature granulocytes(IG's)percentage and absolute count will include metamyelocytes, myelocytes, and promyelocytes. Blood smears from CBCs yielding IG's will be scanned manually for concordance. If this scan disagrees with the automated IG or if promyelocytes are noted, a manual differential will be performed. Nanci Gran Abs 0.93(H) 0.00 - 0.04 x10(3)/[facility] Blood specimen (specimen) 04/25/2020 5:05 AM EDT 04/25/2020 5:20 AM EDT Narrative Resulting Agency Comment Spec In Lab Hong Levi MD HEMATOLOGY ORDERABLE S [facility] [place] [place] [address] * (ABNORMAL) Hemogram (04/25/2020 5:05 AM EDT) WBC 14.1(H) 4.0 - 9.5 x10(3)/[facility] RBC 3.67(L) 4.00 - 5.21 x10(6)/[facility] Hemoglobin 10.0(L) 11.7 - 15.5 gm/dL [facility] Hematocrit 30.9(L) 35.7 - 45.8 % [facility] MCV 84.2 82.6 - 94.4 fL [facility] MCH 27.2 27.1 - 32.0 pg [facility] MCHC 32.4 31.7 - 35.0 gm/dL [facility] Platelets 396(H) 145 - 357 x10(3)/[facility] RDWSD 45.8 37.0 - 46.0 fL [facility] RDWCV 15.0(H) 11.5 - 14.1 % [facility] MPV 9.5 7.6 - 12.9 [facility] nRBC % Auto 0.1 % [facility] nRBC Abs Auto 0.020(H) 0.000 - 0.000 x10(3)/[facility] Blood specimen (specimen) 04/25/2020 5:05 AM EDT 04/25/2020 5:20 AM EDT Narrative Resulting Agency Comment Spec In Lab Hong Levi MD HEMATOLOGY ORDERABLE S Performing Organization Address [facility] [address]/[facility] Co de Phone Number [facility] [place] [place] [address] * Magnesium (04/25/2020 5:05 AM EDT) Magnesium 0.79 0.69 - 1.07 mmol/L [facility] Blood specimen (specimen) 04/25/2020 5:05 AM EDT 04/25/2020 5:19 AM EDT Narrative Resulting Agency Comment Spec In Lab Dale Dash MD CHEMISTRY ORDERABLES Performing Organization Address [facility] [address]/[facility] Co de Phone Number [facility] [place] [place] [address] * (ABNORMAL) Comprehensive metabolic panel (non-fasting) (04/25/2020 5:05 AM EDT) Glucose Lvl 138 65 - 199 mg/dL [facility] Comment:Diabetes: >=200 mg/d L plus symptoms BUN 16 8 - 18 mg/dL [facility] Creatinine 0.69(L) 0.70 - 1.20 mg/dL [facility] Sodium 142 135 - 145 mmol/L [facility] Potassium 3.1(L) 3.5 - 5.0 mmol/L [facility] Comment: Please note: ??Patients with WBC >100,000 may have falsely elevated Potassium levels. ??For accurate Potassium quantification in these patients send serum separator tube (gold top) for subsequent determinations. ??Contact the Clinical Chemistry Laboratory if there are any questions. Chloride 108(H) 98 - 107 mmol/L [facility] CO2 22 22 - 31 mmol/L [facility] Anion Gap 12 5 - 15 mmol/L [facility] Calcium 8.7 8.5 - 10.5 mg/dL [facility] Total Protein 6.1 6.1 - 8.0 gm/dL [facility] Albumin 2.6(L) 3.2 - 5.2 gm/dL [facility] AST 15 0 - 30 unit/L [facility] ALT 15 0 - 30 unit/L [facility] Alk Phos 239(H) 35 - 105 unit/L [facility] Total Bilirubin 0.4 0.2 - 1.3 mg/dL [facility] Estimated GFR 83 >=60 mL/min/1. 73 m?? [facility] Comment: The eGFR was calculated using the CKD-EPI equation. As with all creatinine based estimates of kidney function, eGFR values calculated with the CKD-EPI equation are not accurate in patients with acute kidney failure, extremes of body mass or the acutely ill. [email or web address] eGFR 96 >=60 mL/min/1. 73 m?? [facility] Comment: The eGFR was calculated using the CKD-EPI equation. As with all creatinine based estimates of kidney function, eGFR values calculated with the CKD-EPI equation are not accurate in patients with acute kidney failure, extremes of body mass or the acutely ill. [email or web address] Blood specimen (specimen) 04/25/2020 5:05 AM EDT 04/25/2020 5:19 AM EDT Narrative Resulting Agency Comment Spec In Lab Dale Dash MD CHEMISTRY ORDERABLES Performing Organization Address City/[facility] [address]/[facility] Co de Phone Number [facility] [place] [address] * POCT Glucose (04/25/2020 4:06 AM EDT) POC Glucose 135 65 - 199 mg/dL [facility] Comment: Supplemental ranges: <140 mg/dL before meals <180 mg/dL all other times of the day Blood specimen (specimen) 04/25/2020 4:06 AM EDT 04/25/2020 4:06 AM EDT Abiodun Chun MD POINT OF CARE TEST O RDERABLES Performing Organization Address [facility] [address]/[facility] Co de Phone Number [facility] [place] [address] * (ABNORMAL) POCT Glucose (04/24/2020 11:19 PM EDT) POC Glucose 203(H) 65 - 199 mg/dL [facility] Comment: Supplemental ranges: <140 mg/dL before meals <180 mg/dL all other times of the day Blood specimen (specimen) 04/24/2020 11:19 PM EDT 04/24/2020 11:19 PM EDT Abiodun Chun MD POINT OF CARE TEST O RDERABLES Performing Organization Address [facility] [address]/[facility] Co de Phone Number [facility] [place] [address] * (ABNORMAL) POCT Glucose (04/24/2020 8:16 PM EDT) POC Glucose 241(H) 65 - 199 mg/dL [facility] Comment: Supplemental ranges: <140 mg/dL before meals <180 mg/dL all other times of the day Blood specimen (specimen) 04/24/2020 8:16 PM EDT 04/24/2020 8:16 PM EDT Abiodun Chun MD POINT OF CARE TEST O RDERABLES [facility] [place] [place] [address] * (ABNORMAL) POCT Glucose (04/24/2020 5:08 PM EDT) POC Glucose 230(H) 65 - 199 mg/dL [facility] Comment: Supplemental ranges: <140 mg/dL before meals <180 mg/dL all other times of the day Blood specimen (specimen) 04/24/2020 5:08 PM EDT 04/24/2020 5:08 PM EDT Abiodun Chun MD POINT OF CARE TEST O RDERABLES Performing Organization Address [facility] [address]/ZIP Co de Phone Number [facility] [place] [address] * (ABNORMAL) POCT Glucose (04/24/2020 11:48 AM EDT) POC Glucose 223(H) 65 - 199 mg/dL [facility] Comment: Supplemental ranges: <140 mg/dL before meals <180 mg/dL all other times of the day Blood specimen (specimen) 04/24/2020 11:48 AM EDT 04/24/2020 11:48 AM EDT Abiodun Chun MD POINT OF CARE TEST O RDERABLES Performing Organization Address City/[facility] [address]/ZIP Co de Phone Number [facility] [place] [place] [address] * POCT Glucose (04/24/2020 7:33 AM EDT) [facility] POC Glucose 179 65 - 199 mg/dL [facility] Comment: Supplemental ranges: <140 mg/dL before meals <180 mg/dL all other times of the day Blood specimen (specimen) 04/24/2020 7:33 AM EDT 04/24/2020 7:33 AM EDT Abiodun Chun MD POINT OF CARE TEST O RDERABLES Performing Organization Address City/[facility] [address]/ZIP Co de Phone Number [facility] [place] [address] * Scan, Peripheral Blood (04/24/2020 4:58 AM EDT) [facility] Plat Estimate Increased [facility] RBC Morphology Abnormal [facility] Microcytes 1-5 /HPF [facility] Hypochromia Slight [facility] Platelet Clumps Present [facility] Blood specimen (specimen) 04/24/2020 4:58 AM EDT 04/24/2020 5:16 AM EDT Narrative Resulting Agency Comment Spec In Lab Hong Levi MD HEMATOLOGY ORDERABLE S Performing Organization Address [facility] [address]/ZIP Co de Phone Number [facility] [place] [address] * (ABNORMAL) Differential, Automated (04/24/2020 4:58 AM EDT) [facility] Neutrophils % 64.5 % [facility] Neutr Abs (ANC) 7.89(H) 1.70 - 6.10 x10(3)/mc L [facility] Lymphocytes % 18.2 % [facility] Lymphocytes Abs 2.2 0.9 - 3.2 x10(3)/mc L [facility] Monocytes % 8.3 % [facility] Monocyte Abs 1.0(H) 0.3 - 0.9 x10(3)/mc L [facility] Eosinophils % 2.9 % [facility] Eosinophils Abs 0.4 0.0 - 0.4 x10(3)/[facility] LABORATORY Basophils % 0.9 % [facility] Basophils Abs 0.1 0.0 - 0.1 x10(3)/[facility] Immature Gran % 5.20 % [facility] Comment: Immature granulocytes(IG's)percentage and absolute count will include metamyelocytes, myelocytes, and promyelocytes. Blood smears from CBCs yielding IG's will be scanned manually for concordance. If this scan disagrees with the automated IG or if promyelocytes are noted, a manual differential will be performed. Nanci Gran Abs 0.64(H) 0.00 - 0.04 x10(3)/[facility] Blood specimen (specimen) 04/24/2020 4:58 AM EDT 04/24/2020 5:16 AM EDT Narrative Resulting Agency Comment Spec In Lab Hong Levi MD HEMATOLOGY ORDERABLE S [facility] [place] [place] [address] * (ABNORMAL) Hemogram (04/24/2020 4:58 AM EDT) WBC 12.2(H) 4.0 - 9.5 x10(3)/[facility] LABORATORY RBC 3.71(L) 4.00 - 5.21 x10(6)/[facility] Hemoglobin 10.1(L) 11.7 - 15.5 gm/dL [facility] Hematocrit 31.2(L) 35.7 - 45.8 % [facility] MCV 84.1 82.6 - 94.4 fL [facility] MCH 27.2 27.1 - 32.0 pg [facility] MCHC 32.4 31.7 - 35.0 gm/dL [facility] Platelets 375(H) 145 - 357 x10(3)/[facility]ATORY RDWSD 46.6(H) 37.0 - 46.0 [facility] RDWCV 15.2(H) 11.5 - 14.1 % [facility] MPV 9.7 7.6 - 12.9 [facility] nRBC % Auto 0.0 % [facility] nRBC Abs Auto 0.000 0.000 - 0.000 x10(3)/[facility] Blood specimen (specimen) 04/24/2020 4:58 AM EDT 04/24/2020 5:16 AM EDT Narrative Resulting Agency Comment Spec In Lab Hong Levi MD HEMATOLOGY ORDERABLE S Performing Organization Address [facility] [address]/[facility] Co de Phone Number [facility] [place] [place] [address] * Magnesium (04/24/2020 4:58 AM EDT) Magnesium 0.87 0.69 - 1.07 mmol/L [facility] Blood specimen (specimen) 04/24/2020 4:58 AM EDT 04/24/2020 5:16 AM EDT Narrative Resulting Agency Comment Spec In Lab Dale Dash MD CHEMISTRY ORDERABLES Performing Organization Address [facility] [address]/[facility] Co de Phone Number [facility] [place] [address] * (ABNORMAL) Comprehensive metabolic panel (non-fasting) (04/24/2020 4:58 AM EDT) Glucose Lvl 188 65 - 199 mg/dL [facility] Comment:Diabetes: >=200 mg/d L plus symptoms BUN 25(H) 8 - 18 mg/dL [facility] Creatinine 0.74 0.70 - 1.20 mg/dL [facility] Sodium 143 135 - 145 mmol/L [facility] Potassium 3.3(L) 3.5 - 5.0 mmol/L [facility] Comment: Please note: ??Patients with WBC >100,000 may have falsely elevated Potassium levels. ??For accurate Potassium quantification in these patients send serum separator tube (gold top) for subsequent determinations. ??Contact the Clinical Chemistry Laboratory if there are any questions. Chloride 108(H) 98 - 107 mmol/L [facility] CO2 22 22 - 31 mmol/L [facility] Anion Gap 13 5 - 15 mmol/L [facility] Calcium 8.7 8.5 - 10.5 mg/dL [facility] Total Protein 6.4 6.1 - 8.0 gm/dL [facility] Albumin 2.8(L) 3.2 - 5.2 gm/dL [facility] AST 14 0 - 30 unit/L [facility] ALT 16 0 - 30 unit/L [facility] Alk Phos 243(H) 35 - 105 unit/L [facility] Total Bilirubin 0.4 0.2 - 1.3 mg/dL [facility] Estimated GFR 77 >=60 mL/min/1. 73 m?? [facility] [facility] Comment: The eGFR was calculated using the CKD-EPI equation. As with all creatinine based estimates of kidney function, eGFR values calculated with the CKD-EPI equation are not accurate in patients with acute kidney failure, extremes of body mass or the acutely ill. [email or web address] eGFR 89 >=60 mL/min/1. 73 m?? [facility] Comment: The eGFR was calculated using the CKD-EPI equation. As with all creatinine based estimates of kidney function, eGFR values calculated with the CKD-EPI equation are not accurate in patients with acute kidney failure, extremes of body mass or the acutely ill. [email or web address] Blood specimen (specimen) 04/24/2020 4:58 AM EDT 04/24/2020 5:16 AM EDT Narrative Resulting Agency Comment Spec In Lab Dale Dash MD CHEMISTRY ORDERABLES Performing Organization Address [facility] [address] [facility] Co de Phone Number [facility] [place] [place] [address] * POCT Glucose (04/24/2020 4:06 AM EDT) POC Glucose 191 65 - 199 mg/dL [facility] Comment: Supplemental ranges: <140 mg/dL before meals <180 mg/dL all other times of the day Blood specimen (specimen) 04/24/2020 4:06 AM EDT 04/24/2020 4:06 AM EDT Abiodun Chun MD POINT OF CARE TEST O RDERABLES Performing Organization Address [facility] [address] [facility] Co de Phone Number [facility] [place] [address] * POCT Glucose (04/23/2020 11:44 PM EDT) POC Glucose 193 65 - 199 mg/dL [facility] Comment: Supplemental ranges: <140 mg/dL before meals <180 mg/dL all other times of the day Blood specimen (specimen) 04/23/2020 11:44 PM EDT 04/23/2020 11:44 PM EDT Abiodun Chun MD POINT OF CARE TEST O RDERABLES Performing Organization Address [facility] [address]/[facility] Co de Phone Number [facility] [place] [address] * POCT Glucose (04/23/2020 8:02 PM EDT) POC Glucose 177 65 - 199 mg/dL [facility] Comment: Supplemental ranges: <140 mg/dL before meals <180 mg/dL all other times of the day Blood specimen (specimen) 04/23/2020 8:02 PM EDT 04/23/2020 8:02 PM EDT Abiodun Chun MD POINT OF CARE TEST O RDERABLES Performing Organization Address [facility] [address]/[facility] Co de Phone Number [facility] [place] [address] * (ABNORMAL) POCT Glucose (04/23/2020 4:15 PM EDT) POC Glucose 204(H) 65 - 199 mg/dL [facility] Comment: Supplemental ranges: <140 mg/dL before meals <180 mg/dL all other times of the day Blood specimen (specimen) 04/23/2020 4:15 PM EDT 04/23/2020 4:15 PM EDT Abiodun Chun MD POINT OF CARE TEST O RDERABLES Performing Organization Address [facility] de Phone Number [facility] [place] [address] * Potassium (04/23/2020 1:40 PM EDT) Potassium 3.7 3.5 - 5.0 mmol/L [facility] Chun MD CHEMISTRY ORDERABLES Performing Organization Address [facility] [address]/[facility] Co de Phone Number [facility] [place] [address] * (ABNORMAL) POCT Glucose (04/23/2020 11:35 AM EDT) POC Glucose 202(H) 65 - 199 mg/dL [facility] Comment: Supplemental ranges: <140 mg/dL before meals <180 mg/dL all other times of the day Blood specimen (specimen) 04/23/2020 11:35 AM EDT 04/23/2020 11:35 AM EDT Abiodun Chun MD POINT OF CARE TEST O RDERABLES Performing Organization Address [facility] [address]/ZIP Co de Phone Number [facility] [place] [address] * POCT Glucose (04/23/2020 7:27 AM EDT) POC Glucose 115 65 - 199 mg/dL [facility] Comment: Supplemental ranges: <140 mg/dL before meals <180 mg/dL all other times of the day Blood specimen (specimen) 04/23/2020 7:27 AM EDT 04/23/2020 7:27 AM EDT Hong Rosenthal MD POINT OF CARE TEST O POOLERATOAN Performing Organization Address [facility] [address]/ZIP Co de Phone Number [facility] [place] [address] * POCT Glucose (04/23/2020 4:03 AM EDT) POC Glucose 137 65 - 199 mg/dL [facility] Comment: Supplemental ranges: <140 mg/dL before meals <180 mg/dL all other times of the day Blood specimen (specimen) 04/23/2020 4:03 AM EDT 04/23/2020 4:03 AM EDT Hong Rosenthal MD POINT OF CARE TEST O ISAIAH Performing Organization Address City/[facility] [address]/ZIP Co de Phone Number [facility] [place] [address] * Scan, Peripheral Blood (04/23/2020 2:25 AM EDT) Plat Estimate Increased [facility] RBC Morphology Abnormal [facility] Microcytes 1-5 /HPF [facility] Hypochromia Slight [facility] Blood specimen (specimen) 04/23/2020 2:25 AM EDT 04/23/2020 2:57 AM EDT Narrative Resulting Agency Comment Spec In Lab Tiesha Morgan MD HEMATOLOGY ORDERABLE S Performing Organization Address City/State/[facility] Co de Phone Number [facility] [place] [address] * (ABNORMAL) Differential, Automated (04/23/2020 2:25 AM EDT) Neutrophils % 72.2 % [facility] Neutr Abs (ANC) 7.20(H) 1.70 - 6.10 x10(3)/[facility] Lymphocytes % 17.0 % [facility] Lymphocytes Abs 1.7 0.9 - 3.2 x10(3)/[facility] Monocytes % 7.5 % [facility] Monocyte Abs 0.8 0.3 - 0.9 x10(3)/[facility] Eosinophils % 1.9 % [facility] Eosinophils Abs 0.2 0.0 - 0.4 x10(3)/[facility] Basophils % 0.5 % [facility] Basophils Abs 0.0 0.0 - 0.1 x10(3)/[facility] Immature Gran % 0.90 % [facility] Comment: Immature granulocytes(IG's)percentage and absolute count will include metamyelocytes, myelocytes, and promyelocytes. Blood smears from CBCs yielding IG's will be scanned manually for concordance. If this scan disagrees with the automated IG or if promyelocytes are noted, a manual differential will be performed. Nanci Gran Abs 0.09(H) 0.00 - 0.04 x10(3)/[facility] Blood specimen (specimen) 04/23/2020 2:25 AM EDT 04/23/2020 2:57 AM EDT Narrative Resulting Agency Comment Spec In Lab Tiesha Morgan MD HEMATOLOGY ORDERABLE S [facility] [place] [address] * (ABNORMAL) Hemogram (04/23/2020 2:25 AM EDT) Pathologist [facility] WBC 10.0(H) 4.0 - 9.5 x10(3)/[facility] LAB[facility]ATORY RBC 3.26(L) 4.00 - 5.21 x10(6)/[facility] Hemoglobin 8.9(L) 11.7 - 15.5 gm/dL [facility] Hematocrit 27.4(L) 35.7 - 45.8 % [facility] MCV 84.0 82.6 - 94.4 [facility] MCH 27.3 27.1 - 32.0 pg [facility] MCHC 32.5 31.7 - 35.0 gm/dL [facility] Platelets 360(H) 145 - 357 x10(3)/[facility] RDWSD 47.2(H) 37.0 - 46.0 [facility] RDWCV 15.4(H) 11.5 - 14.1 % [facility] MPV 10.1 7.6 - 12.9 [facility] nRBC % Auto 0.0 % [facility] nRBC Abs Auto 0.000 0.000 - 0.000 x10(3)/[facility] Blood specimen (specimen) 04/23/2020 2:25 AM EDT 04/23/2020 2:57 AM EDT Narrative Resulting Agency Comment Spec In Lab Tiesha Morgan MD HEMATOLOGY ORDERABLE S [facility] [place] [address] * Magnesium (04/23/2020 2:25 AM EDT) Pathologist [facility] Magnesium 0.96 0.69 - 1.07 mmol/L [facility] Blood specimen (specimen) 04/23/2020 2:25 AM EDT 04/23/2020 2:57 AM EDT Narrative Resulting Agency Comment Spec In Lab Dale Dash MD CHEMISTRY ORDERABLES Performing Organization Address [facility] de Phone Number [facility] [address] * (ABNORMAL) Prothrombin Time (04/23/2020 2:25 AM EDT) PT 14.6(H) 9.4 - 12.5 sec [facility] INR 1.3 [facility] Comment: An INR <2.0 indicates [...] MD HEMATOLOGY ORDERABLE S Performing Organization Address [facility] de Phone Number [facility] [place] [place] [address] * (ABNORMAL) Comprehensive metabolic panel (non-fasting) (04/23/2020 2:25 AM EDT) Glucose Lvl 134 65 - 199 mg/dL [facility] Comment:Diabetes: >=200 mg/d L plus symptoms BUN 32(H) 8 - 18 mg/dL [facility] Creatinine 0.96 0.70 - 1.20 mg/dL [facility] Sodium 142 135 - 145 mmol/L [facility] Potassium 3.3(L) 3.5 - 5.0 mmol/L [facility] Comment: Please note: ??Patients with WBC >100,000 may have falsely elevated Potassium levels. ??For accurate Potassium quantification in these patients send serum separator tube (gold top) for subsequent determinations. ??Contact the Clinical Chemistry Laboratory if there are any questions. Chloride 106 98 - 107 mmol/L [facility] CO2 24 22 - 31 mmol/L [facility] Anion Gap 12 5 - 15 mmol/L [facility] Calcium 8.4(L) 8.5 - 10.5 mg/dL [facility] Total Protein 6.1 6.1 - 8.0 gm/dL [facility] Albumin 2.7(L) 3.2 - 5.2 gm/dL [facility] AST 17 0 - 30 unit/L [facility] ALT 19 0 - 30 unit/L [facility] Alk Phos 227(H) 35 - 105 unit/L [facility] Total Bilirubin 0.5 0.2 - 1.3 mg/dL [facility] Estimated GFR 56(L) >=60 mL/min/1. 73 m?? [facility] Comment: The eGFR was calculated using the CKD-EPI equation. As with all creatinine based estimates of kidney function, eGFR values calculated with the CKD-EPI equation are not accurate in patients with acute kidney failure, extremes of body mass or the acutely ill. [email or web address] eGFR 65 >=60 mL/min/1. 73 m?? [facility] Comment: The eGFR was calculated using the CKD-EPI equation. As with all creatinine based estimates of kidney function, eGFR values calculated with the CKD-EPI equation are not accurate in patients with acute kidney failure, extremes of body mass or the acutely ill. [email or web address] Blood specimen (specimen) 04/23/2020 2:25 AM EDT 04/23/2020 2:57 AM EDT Narrative Resulting Agency Comment Spec In Lab Dale Dash MD CHEMISTRY ORDERABLES Performing Organization Address City/State/[facility] Co de Phone Number [facility] [place] [address] * POCT Glucose (04/22/2020 11:23 PM EDT) POC Glucose 143 65 - 199 mg/dL [facility] Comment: Supplemental ranges: <140 mg/dL before meals <180 mg/dL all other times of the day Blood specimen (specimen) 04/22/2020 11:23 PM EDT 04/22/2020 11:23 PM EDT Hong Rosenthal MD POINT OF CARE TEST O RDROBIN Performing Organization Address [facility] [address] [facility] Co de Phone Number [facility] [place] [address] * POCT Glucose (04/22/2020 8:00 PM EDT) POC Glucose 142 65 - 199 mg/dL [facility] Comment: Supplemental ranges: <140 mg/dL before meals <180 mg/dL all other times of the day Blood specimen (specimen) 04/22/2020 8:00 PM EDT 04/22/2020 8:00 PM EDT Hong Rosenthal MD POINT OF CARE TEST O ISAIAH Performing Organization Address [facility] [address]/[facility] Co de Phone Number [facility] [place] [address] * (ABNORMAL) Potassium (04/22/2020 5:45 PM EDT) Potassium 3.4(L) 3.5 - 5.0 mmol/L [facility] Rosenthal MD CHEMISTRY ORDERABLES Performing Organization Address [facility] [address]/[facility] Co de Phone Number [facility] [place] [address] * POCT Glucose (04/22/2020 4:42 PM EDT) POC Glucose 156 65 - 199 mg/dL [facility] Comment: Supplemental ranges: <140 mg/dL before meals <180 mg/dL all other times of the day Blood specimen (specimen) 04/22/2020 4:42 PM EDT 04/22/2020 4:42 PM EDT Hong Rosenthal MD POINT OF CARE TEST O RDERABLES Performing Organization Address [facility] [address]/[facility] Co de Phone Number [facility] [place] [address] * IR Cholecystostomy Tube Placement (04/22/2020 4:19 [...] tube check (ordered placed). Operators: Resident: Veto Braon PGY-5 Attending: Dr. Collins I, Dr. Collins, was present throughout the procedure. I was present during the intraservice time as documented by the IR Nurse. ?? Hong Rosenthal MD IMG IR ORDERABLES * Anaerobic Culture (04/22/2020 3:50 PM EDT) Anaerobic Culture No anaerobic organisms isolated [facility] Bile specimen (specimen) 04/22/2020 3:50 PM EDT 04/22/2020 4:36 PM EDT Comment:CHOLECYSTITIS IN THE SETTING OF RECENT ACS S/P STENT PLACEMENT Narrative Resulting Agency Comment Spec In Lab Hong Rosenthal MD MICROBIOLOGY - GENER AL ORDERABLES [facility] [place] [address] * (ABNORMAL) Body Fluid Culture, Aerobic (04/22/2020 3:50 PM EDT) Body Fluid Culture Many Raoultella ornithinolytica (Klebsiella ornithinolytica)(A ) [facility] Gram Stain Few Neutrophils seen Rare Gram Negative Rods seen (A) [facility] Organism Raoultella ornithinolytica (Klebsiella ornithinolytica)(A ) [facility] Organism Gram Negative Rods(A) [facility] Bile specimen (specimen) 04/22/2020 3:50 [...] METHOD Sensitive Hong Rosenthal MD MICROBIOLOGY - GENER AL ORDERABLES [facility] [place] [address] * (ABNORMAL) Differential, Automated (04/22/2020 2:05 PM EDT) Neutrophils % 77.2 % [facility] Neutr Abs (ANC) 9.74(H) 1.70 - 6.10 x10(3)/mc L [facility] Lymphocytes % 11.3 % [facility] Lymphocytes Abs 1.4 0.9 - 3.2 x10(3)/[facility] LABORATORY Monocytes % 8.2 % [facility] Monocyte Abs 1.0(H) 0.3 - 0.9 x10(3)/[facility] LAB[facility]ORY Eosinophils % 1.9 % [facility] Eosinophils Abs 0.2 0.0 - 0.4 x10(3)/[facility] Basophils % 0.6 % [facility] Basophils Abs 0.1 0.0 - 0.1 x10(3)/[facility] LAB[facility]ATORY Immature Gran % 0.80 % [facility] Comment: Immature granulocytes(IG's)percentage and absolute count will include metamyelocytes, myelocytes, and promyelocytes. Blood smears from CBCs yielding IG's will be scanned manually for concordance. If this scan disagrees with the automated IG or if promyelocytes are noted, a manual differential will be performed. Nanci Gran Abs 0.10(H) 0.00 - 0.04 x10(3)/[facility] Blood specimen (specimen) 04/22/2020 2:05 PM EDT 04/22/2020 2:17 PM EDT Narrative Resulting Agency Comment Spec In Lab Hong Levi MD HEMATOLOGY ORDERABLE S [facility] [place] [address] * (ABNORMAL) Hemogram (04/22/2020 2:05 PM EDT) WBC 12.6(H) 4.0 - 9.5 x10(3)/[facility] LABORATORY RBC 3.51(L) 4.00 - 5.21 x10(6)/[facility] Hemoglobin 9.5(L) 11.7 - 15.5 gm/dL [facility] Hematocrit 29.3(L) 35.7 - 45.8 % [facility] MCV 83.5 82.6 - 94.4 fL [facility] MCH 27.1 27.1 - 32.0 pg [facility] MCHC 32.4 31.7 - 35.0 gm/dL [facility] Platelets 340 145 - 357 x10(3)/[facility] LABORATORY RDWSD 47.2(H) 37.0 - 46.0 [facility] LAB[facility]ATORY RDWCV 15.4(H) 11.5 - 14.1 % [facility] MPV 10.4 7.6 - 12.9 [facility] nRBC % Auto 0.0 % [facility] nRBC Abs Auto 0.000 0.000 - 0.000 x10(3)/[facility] LAB[facility]ATORY Blood specimen (specimen) 04/22/2020 2:05 PM EDT 04/22/2020 2:17 PM EDT Narrative Resulting Agency Comment Spec In Lab Hong Levi MD HEMATOLOGY ORDERABLE S [facility] [place] [address] * POCT Glucose (04/22/2020 11:29 AM EDT) POC Glucose 171 65 - 199 mg/dL [facility] Comment: Supplemental ranges: <140 mg/dL before meals <180 mg/dL all other times of the day Blood specimen (specimen) 04/22/2020 11:29 AM EDT 04/22/2020 11:29 AM EDT Hong Rosenthal MD POINT OF CARE TEST O RDERABLES Performing Organization Address City/[facility] [address]/ZIP Co de Phone Number [facility] [place] [address] * (ABNORMAL) BLOOD GAS 2 ARTERIAL (04/22/2020 9:20 AM EDT) pH Art 7.41 7.35 - 7.45 [facility] pCO2 Art 37 35 - 45 mmHg [facility] pO2 Art 103 85 - 104 mmHg [facility] HCO3 Art 23.4 20.0 - 26.0 mmol/L [facility] BE Art -1.2 -3.0 - 3.0 mmol/L [facility] Hgb Blood Gas 9.3(L) 11.7 - 15.5 gm/dL [facility] O2HB Art 96.3 94.0 - 97.0 % [facility] COHB Art 0.3 % [facility] Comment: Nonsmokers: 0.5-1.5% COHB Smokers: Variable, but usually less than 10% Toxic: 20-30% COHB Lethal: Greater than 60% COHB METHB Art 0.6 <=1.5 % [facility] Na Whole Blood 137 135 - 145 mmol/L [facility] K Whole Blood 3.0(Critic al) 3.5 - 5.0 mmol/L [facility] Comment: Noted by panel instrument repairer. Please note: Patients with WBC >100,000 may have falsely elevated Potassium levels. Contact the Clinical Chemistry Laboratory if there are any questions. ICa Whole Blood 1.11(L) 1.15 - 1.33 mmol/L [facility] Comment: Note: ??Total bilirubin higher than 20 mg/dL may lead to falsely low ionized calcium. CL Whole Blood 109(H) 98 - 107 mmol/L [facility] Gluc Whole Bld 147 65 - 199 mg/dL [facility] Comment:Diabetes: >=200 mg/d L plus symptoms. Lactate WB 1.1 0.5 - 2.2 mmol/L [facility] Flow Art 6.0 LPM [facility] Blood specimen (specimen) 04/22/2020 9:20 AM EDT 04/22/2020 9:20 AM EDT Hong Rosenthal MD CHEMISTRY ORDERABLES Performing Organization Address [facility] [address]/[facility] Co de Phone Number [facility] [address] * POCT Glucose (04/22/2020 7:35 AM EDT) POC Glucose 153 65 - 199 mg/dL [facility] Comment: Supplemental ranges: <140 mg/dL before meals <180 mg/dL all other times of the day Blood specimen (specimen) 04/22/2020 7:35 AM EDT 04/22/2020 7:35 AM EDT Hong Rosenthal MD POINT OF CARE TEST O RDERABLES Performing Organization Address [facility] [address]/[facility] de Phone Number [facility] [place] [address] * XR Chest One View (04/22/2020 6:15 AM EDT) Anatomical Region Laterality Modality Chest N/A Digital Radiogra phy Impressions 04/22/2020 8:08 AM EDT Persistent pulmonary vascular congestion. Improved interstitial edema. Persistent right-sided pleural effusion, predominantly subpulmonic. Thank you for letting us participate in the care of this patient. For questions regarding this report, please contact the number below. ? Narrative 04/22/2020 8:08 AM EDT EXAMINATION: XR [...] the number below. Electronically signed by: Mayte Pollack, [facility]([phone]), at 04/22/2020 8:08 AM Hong Rosenthal MD IMG DX ORDERABLES * (ABNORMAL) Differential, Automated (04/22/2020 3:50 AM EDT) Neutrophils % 78.4 % [facility] Neutr Abs (ANC) 10.58(H) 1.70 - 6.10 x10(3)/mc L [facility] Lymphocytes % 11.9 % [facility] Lymphocytes Abs 1.6 0.9 - 3.2 x10(3)/mc L [facility] Monocytes % 8.2 % [facility] Monocyte Abs 1.1(H) 0.3 - 0.9 x10(3)/mc L [facility] Eosinophils % 0.5 % [facility] Eosinophils Abs 0.1 0.0 - 0.4 x10(3)/[facility] LABORATORY Basophils % 0.2 % [facility] Basophils Abs 0.0 0.0 - 0.1 x10(3)/[facility] LABORATORY Immature Gran % 0.80 % [facility] Comment: Immature granulocytes(IG's)percentage and absolute count will include metamyelocytes, myelocytes, and promyelocytes. Blood smears from CBCs yielding IG's will be scanned manually for concordance. If this scan disagrees with the automated IG or if promyelocytes are noted, a manual differential will be performed. Nanci Gran Abs 0.11(H) 0.00 - 0.04 x10(3)/[facility] LABORATORY Blood specimen (specimen) 04/22/2020 3:50 AM EDT 04/22/2020 3:57 AM EDT Narrative Resulting Agency Comment Spec In Lab Tiesha Morgan MD HEMATOLOGY ORDERABLE S [facility] [place] [address] * (ABNORMAL) Hemogram (04/22/2020 3:50 AM EDT) WBC 13.5(H) 4.0 - 9.5 x10(3)/[facility] LABORATORY RBC 3.18(L) 4.00 - 5.21 x10(6)/[facility] LAB[facility]ORY Hemoglobin 8.6(L) 11.7 - 15.5 gm/dL [facility] Hematocrit 26.8(L) 35.7 - 45.8 % [facility] MCV 84.3 82.6 - 94.4 fL [facility] MCH 27.0(L) 27.1 - 32.0 pg [facility] MCHC 32.1 31.7 - 35.0 gm/dL [facility] Platelets 313 145 - 357 x10(3)/[facility] RDWSD 47.2(H) 37.0 - 46.0 fL [facility] RDWCV 15.2(H) 11.5 - 14.1 % [facility] MPV 10.5 7.6 - 12.9 [facility] LABORATORY nRBC % Auto 0.0 % [facility] nRBC Abs Auto 0.000 0.000 - 0.000 x10(3)/mcL [facility] Blood specimen (specimen) 04/22/2020 3:50 AM EDT 04/22/2020 3:57 AM EDT Narrative Resulting Agency Comment Spec In Lab Tiesha Morgan MD HEMATOLOGY ORDERABLE S Performing Organization Address [facility] [address]/ZIP Co de Phone Number [facility] [address] * (ABNORMAL) Magnesium (04/22/2020 3:50 AM EDT) Magnesium 1.46(H) 0.69 - 1.07 mmol/L [facility] Blood specimen (specimen) 04/22/2020 3:50 AM EDT 04/22/2020 3:57 AM EDT Narrative Resulting Agency Comment Spec In Lab Dale Dash MD CHEMISTRY ORDERABLES Performing Organization Address City/[facility] [address]/ZIP Co de Phone Number [facility] [place] [address] * (ABNORMAL) Prothrombin Time (04/22/2020 3:50 AM EDT) PT 13.9(H) 9.4 - 12.5 sec [facility] INR 1.2 [facility] Comment: An INR <2.0 indicates [...] MD HEMATOLOGY ORDERABLE S Performing Organization Address City/[facility] [address]/ZIP Co de Phone Number [facility] [place] [address] * TSH Trezevant (04/22/2020 3:50 AM EDT) TSH 1.22 0.27 - 4.20 mcIU/mL [facility] Blood specimen (specimen) 04/22/2020 3:50 AM EDT 04/22/2020 3:57 AM EDT Narrative Resulting Agency Comment Spec In Lab Hong Rosenthal MD CHEMISTRY ORDERABLES Performing Organization Address [facility] [address]/[facility] Co de Phone Number [facility] [place] [place] [address] * Lipid Panel (Reflex Direct LDL) (04/22/2020 3:50 AM EDT) Chol, Total 104 mg/dL [facility] Comment: Lower Risk: <200 mg/dL Average Risk: 200-239 mg/dL Higher Risk: >sk=331 mg/dL Triglycerides 237 mg/dL [facility] Comment: Average Risk/Lower Risk: <150 mg/dL Borderline High Risk: 150-199 mg/dL High Risk: 200-499 mg/dL Very High Risk: >yy=140 mg/dL HDL 17 mg/dL [facility] Comment: Males: ?? Higher Risk: <40 mg/dL Females: ?? HIgher Risk: <50 mg/dL LDL Cholesterol 40 mg/dL [facility] Comment: Lowest Risk: <100 mg/dL Lower Risk: 100-129 mg/dL Borderline High Risk: 130-159 mg/dL High Risk: 160-189 mg/dL Very High Risk: >xa=260 mg/dL Chol/HDL Ratio 6.1 ratio [facility] Lipid Interpretation See Note [facility] Comment: Lipid management should be guided by a patient? s ASCVD risk, goals and preferences. ACC/AHA Guidelines recommend high intensity statin if clinical ASCVD or LDL greater than or equal to 190 mg/dL. 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 1, S67-44 Est Avg Gluc See note mg/dL [facility] Comment: Estimated Average Glucose not [...] into estimated average glucose values. ??Diabetes Care 2008:31(8):9854-9757. Blood specimen (specimen) 04/22/2020 3:50 AM EDT 04/22/2020 3:57 AM EDT Narrative Resulting Agency Comment Spec In Lab Hong Rosenthal MD CHEMISTRY ORDERABLES [facility] [place] [address] * (ABNORMAL) Comprehensive metabolic panel (non-fasting) (04/22/2020 3:50 AM EDT) Glucose Lvl 157 65 - 199 mg/dL [facility] Comment:Diabetes: >=200 mg/d L plus symptoms BUN 34(H) 8 - 18 mg/dL [facility] Creatinine 1.10 0.70 - 1.20 mg/dL [facility] Sodium 139 135 - 145 mmol/L [facility] Potassium 3.2(L) 3.5 - 5.0 mmol/L [facility] Comment: Please note: ??Patients with WBC >100,000 may have falsely elevated Potassium levels. ??For accurate Potassium quantification in these patients send serum separator tube (gold top) for subsequent determinations. ??Contact the Clinical Chemistry Laboratory if there are any questions. Chloride 103 98 - 107 mmol/L [facility] CO2 24 22 - 31 mmol/L [facility] Anion Gap 12 5 - 15 mmol/L [facility] Calcium 8.4(L) 8.5 - 10.5 mg/dL [facility] Total Protein 6.1 6.1 - 8.0 gm/dL [facility] Albumin 2.5(L) 3.2 - 5.2 gm/dL [facility] AST 19 0 - 30 unit/L [facility] ALT 20 0 - 30 unit/L [facility] Alk Phos 245(H) 35 - 105 unit/L [facility] Total Bilirubin 0.6 0.2 - 1.3 mg/dL [facility] Estimated GFR 48(L) >=60 mL/min/1. 73 m?? [facility] Comment: The eGFR was calculated using the CKD-EPI equation. As with all creatinine based estimates of kidney function, eGFR values calculated with the CKD-EPI equation are not accurate in patients with acute kidney failure, extremes of body mass or the acutely ill. [email or web address]://Huan [email or web address]/[facility] [place] eGFR 55(L) >=60 mL/min/1. 73 m?? [facility] Comment: The eGFR was calculated using the CKD-EPI equation. As with all creatinine based estimates of kidney function, eGFR values calculated with the CKD-EPI equation are not accurate in patients with acute kidney failure, extremes of body mass or the acutely ill. [email or web address]/[facility] [place] Blood specimen (specimen) 04/22/2020 3:50 AM EDT 04/22/2020 3:57 AM EDT Narrative Resulting Agency Comment Spec In Lab Dale Dash MD CHEMISTRY ORDERABLES [facility] [place] [address] * POCT Glucose (04/21/2020 11:36 PM EDT) POC Glucose 195 65 - 199 mg/dL [facility] Comment: Supplemental ranges: <140 mg/dL before meals <180 mg/dL all other times of the day Blood specimen (specimen) 04/21/2020 11:36 PM EDT 04/21/2020 11:36 PM EDT Hong Rosenthal MD POINT OF CARE TEST O RDERABLES Performing Organization Address [facility] [address]/ZIP Co de Phone Number [facility] [place] [address] * (ABNORMAL) Basic Metabolic Panel (non-fasting) (04/21/2020 10:00 PM EDT) Glucose Lvl 231(H) 65 - 199 mg/dL [facility] Comment:Diabetes: >=200 mg/d L plus symptoms BUN 31(H) 8 - 18 mg/dL [facility] Creatinine 1.00 0.70 - 1.20 mg/dL [facility] Sodium 138 135 - 145 mmol/L [facility] [...] mmol/L [facility] Anion Gap 12 5 - 15 mmol/L [facility] Calcium 8.5 8.5 - 10.5 mg/dL [facility] Estimated GFR 54(L) >=60 mL/min/1. 73 m?? [facility] Comment: The eGFR was calculated using the CKD-EPI equation. As with all creatinine based estimates of kidney function, eGFR values calculated with the CKD-EPI equation are not accurate in patients with acute kidney failure, extremes of body mass or the acutely ill. [email or web address]://[email or web address]/[facility] [place] eGFR 62 >=60 mL/min/1. 73 m?? [facility] Comment: The eGFR was calculated using the CKD-EPI equation. As with all creatinine based estimates of kidney function, eGFR values calculated with the CKD-EPI equation are not accurate in patients with acute kidney failure, extremes of body mass or the acutely ill. [email or web address] [place] Blood specimen (specimen) 04/21/2020 10:00 PM EDT 04/21/2020 10:04 PM EDT Narrative Resulting Agency Comment Spec In Lab Hong Rosenthal MD CHEMISTRY ORDERABLES Performing Organization Address City/[facility] [address]/[facility] Co de Phone Number [facility] [place] [place] [address] * (ABNORMAL) POCT Glucose (04/21/2020 7:49 PM EDT) Pathologist [facility] POC Glucose 201(H) 65 - 199 mg/dL [facility] Comment: Supplemental ranges: <140 mg/dL before meals <180 mg/dL all other times of the day Blood specimen (specimen) 04/21/2020 7:49 PM EDT 04/21/2020 7:49 PM EDT Hong Rosenthal MD POINT OF CARE TEST O RDERABLES Performing Organization Address City/[facility] [address]/ZIP Co de Phone Number [facility] [place] [address] * (ABNORMAL) Point of Care Blood Gas Historical (04/21/2020 4:44 PM EDT) Pathologist [facility] POC pH 7.43 7.35 - 7.45 [facility] POC PCO2 31(L) 35 - 45 mmHg [facility] POC PO2 58(L) 85 - 104 mmHg [facility] POC Base Excess -4.0(L) -3.0 - 3.0 mmol/L [facility] POC HCO3 20.3 20.0 - 26.0 mmol/L [facility] POC Sodium 139 135 - 145 mmol/L [facility] POC Potassium 3.4(L) 3.5 - 5.0 mmol/L [facility] POC Ionized Ca 1.16 1.15 - 1.33 mmol/L [facility] POC Hematocrit 29.0(L) 34.0 - 45.0 % [facility] POC Calc Hgb 9.9(L) 11.2 - 15.7 gm/dL [facility] Comment:The calculation of h emoglobin from hematocrit assumes a normal MCHC. POC Bgas Loc CC LAB [facility] Blood specimen (specimen) 04/21/2020 4:44 PM EDT 04/22/2020 12:00 PM EDT Abiodun Chun MD CHEMISTRY ORDERABLES Performing Organization Address City/State/[facility] Co de Phone Number [facility] [place] [place] [address] * CARDIAC CATHETERIZATION (04/21/2020 4:08 PM EDT) Anatomical Region Laterality Modality Other Narrative 04/21/2020 6:49 PM EDT ?[facility] ? Cardiac Catheterization/Intervention Report ? Patient Name: HEIDY, SHANNAN A. ? Procedure Date: 04/21/2020 ? A #: [id number] ? Primary Physician: Coylewright, Esau J ? Case #: [id number] ? File Name: [id number] ? Catheterization Order Number: [id number] ? [facility] ? Final Report [place], [place] ? Patient Name: ? SHANNAN A. HEIDY ? ID#: ?[id number] ? : ?1940 ? Procedure Date: ? April 21, 2020 ?Case #: ? [id number] ? Room: ? 2 ? Case Physician: ? Esau Rahman M.D. ?Start: ?15:54 ?Fellow: ? [facility], D.O. ?Admission: ??04/19/2020 ? Referring Physician: ??Reshma [...] was designated as ASA ?Class IV. The [facility] clinical frailty scale is 5: Mildly [...] procedure was Urgent. The indication for ?the collaborative physician visit is ACS less than or equal [...] ?4 guiding catheter and a 3.5 [address] [facility] [address] ??20 Mhz. ??Imaging ?was successful. ??Image [...] The lesion was predilated with a 3.00mm Cascade CB 15 MM ? balloon with a [...] may require ?modification of this regimen. Consult [facility] Interventional Cardiology for ?questions. ?The 1 year [...] angiography and vascular closure device. ? Esau J Coylewright, ? M.D. ? Electronically Signed by: Esau J Coylewright, M.D. ? Report Finalized: 04/21/2020 ??18:44 ? Procedure Note Esau Rahman MD - 04/21/2020 [facility] Cardiac Catheterization/Intervention Report Patient Name: SHANNAN CHAUDHARY Procedure Date: 04/21/2020 A #: [id number] Primary Physician: Esau Rahman Case #: [id number] File Name: [id number] Catheterization Order Number: [id number] [facility] FinalReport [place], [place] Patient Name: SHANNAN CHAUDHARY ID#:[id number] :1940 Procedure Date: April 21, 2020 Case [...] patient was designated asASA Class IV. The [facility] clinical frailty scale is 5: Mildly Frail. Diagnostic Tests: Prior Coronary Angiography: LV ejection fraction within 6 months is 59%. Electrocardiography: EKG was assessed by ECG. EKG was Abnormal. EKG showed other abnormality. Medications Prior to Procedure: Angiotensin Converting Enzyme Inhibitor, Beta Shari andStatin. Indications for Diagnostic Cath: The priority of the diagnostic procedure was Urgent. The indicationfor the collaborative physician visit is ACS less than or equal [...] 29.0 minutes, dose area product was 203,609 [id number] air kerma was 3,430 mGY. See the [...] 4 guiding catheter and a 3.[address] [facility] [address] 20 Mhz.Imaging was successful. Image quality was good. The ostial RCA showedscattered atherosclerotic plaque. Post Intervention: The stent was well expanded and apposed. Additional Findings: Stent seen not extend past ostium, andadequately covered lesion. Indication for Intervention: Coronary intervention was indicated for primary therapy for an acute myocardial infarction. The priority for the procedure was Urgent.[facility] procedure was NSTE-ACS. LVEF [...] The lesion was predilated with a 3.00mm Cascade CB 15MM balloon with a maximum inflation [...] situation mayrequire modification of this regimen. [place] [facility] [place] [place]iology[place] questions. The 1 year bleeding [...] POC Glucose 180 65 - 199 mg/dL [facility] Comment: Supplemental ranges: <140 mg/dL before meals <180 mg/dL all other times of the day Blood specimen (specimen) 04/21/2020 12:15 PM EDT 04/21/2020 12:15 PM EDT Hong Rosenthal MD POINT OF CARE TEST O RDERATOAN [facility] [place] [place] [address] * XR Chest One View (04/21/2020 4:51 [...] below. ? Electronically signed by: Dylan Kinsey [facility] ([phone]), at 04/21/2020 6:22 AM Narrative 04/21/2020 6:22 [...] number below. Electronically signed by: Dylan Kinsey [facility]([phone]), at 04/21/2020 6:22 AM Hong Rosenthal MD IMG DX ORDERABLES * (ABNORMAL) Troponin (04/21/2020 4:45 AM EDT) Troponin-T 0.13(H) 0.00 - 0.00 ng/mL [facility] Comment: The 99th percentile for Troponin T is less than 0.01 ng/mL, any detectable cTnT concentration using this assay should be considered elevated. According to the third universal definition of myocardial infarction the following criteria with a clinical presentation consistent with acute myocardial ischemia meets the diagnosis for a myocardial infarction ([place]). Detection of a rise and/or fall of cTnT, with at least one value greater than the 99th percentile (> or = 0.01) and with at least one of the following ?? Symptoms of ischemia ?? New or presumed new significant WG-pqjjelg-H wave (ST-T) changes or new left bundle [...] additional sample may be indicated. Reference: Third Stanford Definition of Myocardial Infarction. Journal of the [place] [employer] 2012;60:1581-98 Blood specimen (specimen) 04/21/2020 4:45 AM EDT 04/21/2020 4:56 AM EDT Narrative Resulting Agency Comment Spec In Lab Hong Rosenthal MD CHEMISTRY ORDERABLES Performing Organization Address [facility] [address] [facility] Co de Phone Number [facility] [place] [place] [address] * EKG 12 Lead (04/21/2020 4:33 AM EDT) Ventricular rate 83 BPM MUSE SYSTEM Atrial Rate 83 BPM MUSE SYSTEM P-R Interval 148 ms MUSE SYSTEM QRS Duration 138 ms MUSE SYSTEM Q-T Interval 408 ms MUSE SYSTEM QTC Calculated (Bezet) 479 ms MUSE SYSTEM Calculated P [place] 57 degrees MUSE SYSTEM Calculated R [place] 49 degrees MUSE SYSTEM Calculated T [place] 19 degrees MUSE SYSTEM INTERPRETATION Normal sinus rhythm Right bundle branch block Abnormal ECG When compared with ECG of 20-APR-2020 14:08, (unconfirmed) No significant change was found I personally reviewed the tracing and edited the fellows interpretation Confirmed by fellow Ren Quinn ([id number]) on 04/21/2020 1:32:16 PM Confirmed by Lisbeth Cain ([id number]) on 04/21/2020 7:47:23 PM MUSE SYSTEM 04/21/2020 4:33 AM EDT 04/21/2020 7:47 PM EDT Hong Rosenthal MD ECG ORDERABLES Performing Organization Address [facility] [address] [facility] Co de Phone Number MUSE SYSTEM * POCT Glucose (04/21/2020 3:53 AM EDT) POC Glucose 138 65 - 199 mg/dL [facility] Comment: Supplemental ranges: <140 mg/dL before meals <180 mg/dL all other times of the day Blood specimen (specimen) 04/21/2020 3:53 AM EDT 04/21/2020 3:53 AM EDT Hong Rosenthal MD POINT OF CARE TEST O RDERABLES Performing Organization Address [facility] [address]/ZIP Co de Phone Number [facility] [place] [address] * (ABNORMAL) Differential, Automated (04/21/2020 3:30 AM EDT) Neutrophils % 86.1 % [facility] Neutr Abs (ANC) 14.52(H) 1.70 - 6.10 x10(3)/[facility] Lymphocytes % 6.9 % [facility] Lymphocytes Abs 1.2 0.9 - 3.2 x10(3)/[facility] Monocytes % 5.2 % [facility] Monocyte Abs 0.9 0.3 - 0.9 x10(3)/[facility] Eosinophils % 0.4 % [facility] Eosinophils Abs 0.1 0.0 - 0.4 x10(3)/[facility] Basophils % 0.2 % [facility] Basophils Abs 0.0 0.0 - 0.1 x10(3)/[facility] Immature Gran % 1.20 % [facility] Comment: Immature granulocytes(IG's)percentage and absolute count will include metamyelocytes, myelocytes, and promyelocytes. Blood smears from CBCs yielding IG's will be scanned manually for concordance. If this scan disagrees with the automated IG or if promyelocytes are noted, a manual differential will be performed. Nanci Gran Abs 0.20(H) 0.00 - 0.04 x10(3)/[facility] Blood specimen (specimen) 04/21/2020 3:30 AM EDT 04/21/2020 3:34 AM EDT Narrative Resulting Agency Comment Spec In Lab Tiesha Morgan MD HEMATOLOGY ORDERABLE S [facility] [place] [place] [address] * (ABNORMAL) Hemogram (04/21/2020 3:30 AM EDT) WBC 16.9(H) 4.0 - 9.5 x10(3)/[facility] LABORATORY RBC 3.68(L) 4.00 - 5.21 x10(6)/[facility] Hemoglobin 10.1(L) 11.7 - 15.5 gm/dL [facility] Hematocrit 31.1(L) 35.7 - 45.8 % [facility] MCV 84.5 82.6 - 94.4 fL [facility] MCH 27.4 27.1 - 32.0 pg [facility] MCHC 32.5 31.7 - 35.0 gm/dL [facility] Platelets 275 145 - 357 x10(3)/[facility] RDWSD 47.4(H) 37.0 - 46.0 [facility] RDWCV 15.3(H) 11.5 - 14.1 % [facility] MPV 10.4 7.6 - 12.9 [facility] LABORATORY nRBC % Auto 0.0 % [facility] nRBC Abs Auto 0.000 0.000 - 0.000 x10(3)/[facility] Blood specimen (specimen) 04/21/2020 3:30 AM EDT 04/21/2020 3:34 AM EDT Narrative Resulting Agency Comment Spec In Lab Tiesha Morgan MD HEMATOLOGY ORDERABLE S [facility] [place] [address] * (ABNORMAL) Magnesium (04/21/2020 3:30 AM EDT) Magnesium 1.09(H) 0.69 - 1.07 mmol/L [facility] Comment:result rechecked-kk Blood specimen (specimen) 04/21/2020 3:30 AM EDT 04/21/2020 3:34 AM EDT Narrative Resulting Agency Comment Spec In Lab Dale Dash MD CHEMISTRY ORDERABLES Performing Organization Address [facility] [address]/[facility] Co de Phone Number [facility] [place] [address] * (ABNORMAL) Prothrombin Time (04/21/2020 3:30 AM EDT) PT 14.4(H) 9.4 - 12.5 sec [facility] INR 1.2 [facility] Comment: An INR <2.0 indicates [...] MD HEMATOLOGY ORDERABLE S Performing Organization Address [facility] [address]/[facility] Co de Phone Number [facility] [place] [address] * (ABNORMAL) Comprehensive metabolic panel (non-fasting) (04/21/2020 3:30 AM EDT) Pathologist [facility] Glucose Lvl 149 65 - 199 mg/dL [facility] Comment:Diabetes: >=200 mg/d L plus symptoms BUN 39(H) 8 - 18 mg/dL [facility] Creatinine 1.31(H) 0.70 - 1.20 mg/dL [facility] Sodium 138 135 - 145 mmol/L [facility] Potassium 3.7 3.5 - 5.0 mmol/L [facility] Comment: Please note: ??Patients with WBC >100,000 may have falsely elevated Potassium levels. ??For accurate Potassium quantification in these patients send serum separator tube (gold top) for subsequent determinations. ??Contact the Clinical Chemistry Laboratory if there are any questions. Chloride 102 98 - 107 mmol/L [facility] CO2 21(L) 22 - 31 mmol/L [facility] Anion Gap 15 5 - 15 mmol/L [facility] Calcium 8.6 8.5 - 10.5 mg/dL [facility] Total Protein 6.6 6.1 - 8.0 gm/dL [facility] Albumin 3.1(L) 3.2 - 5.2 gm/dL [facility] AST 38(H) 0 - 30 unit/L [facility] Comment:result rechecked-kk ALT 29 0 - 30 unit/L [facility] Alk Phos 257(H) 35 - 105 unit/L [facility] Comment:result rechecked-kk Total Bilirubin 1.0 0.2 - 1.3 mg/dL [facility] Estimated GFR 39(L) >=60 mL/min/1. 73 m?? [facility] Comment: The eGFR was calculated using the CKD-EPI equation. As with all creatinine based estimates of kidney function, eGFR values calculated with the CKD-EPI equation are not accurate in patients with acute kidney failure, extremes of body mass or the acutely ill. [email or web address]/[facility] eGFR 45(L) >=60 mL/min/1. 73 m?? [facility] Comment: The eGFR was calculated using the CKD-EPI equation. As with all creatinine based estimates of kidney function, eGFR values calculated with the CKD-EPI equation are not accurate in patients with acute kidney failure, extremes of body mass or the acutely ill. [email or web address] Blood specimen (specimen) 04/21/2020 3:30 AM EDT 04/21/2020 3:34 AM EDT Narrative Resulting Agency Comment Spec In Lab Dale Dash MD CHEMISTRY ORDERABLES [facility] [place] [address] * (ABNORMAL) Troponin (04/20/2020 11:55 PM EDT) Troponin-T 0.12(H) 0.00 - 0.00 ng/mL [facility] Comment: The 99th percentile for Troponin T is less than 0.01 ng/mL, any detectable cTnT concentration using this assay should be considered elevated. According to the third universal definition of myocardial infarction the following criteria with a clinical presentation consistent with acute myocardial ischemia meets the diagnosis for a myocardial infarction ([place]). Detection of a rise and/or fall of cTnT, with at least one value greater than the 99th percentile (> or = 0.01) and with at least one of the following ?? Symptoms of ischemia ?? New or presumed new significant ZH-endehrw-R wave (ST-T) changes or new left bundle [...] additional sample may be indicated. Reference: Third Stanford Definition of Myocardial Infarction. Journal of the [place] [employer] 2012;60:1581-98 Blood specimen (specimen) 04/20/2020 11:55 PM EDT 04/21/2020 1:03 AM EDT Narrative Resulting Agency Comment Spec In Lab Hong Rosenthal MD CHEMISTRY ORDERABLES [facility] [place] [address] * POCT Glucose (04/20/2020 11:46 PM EDT) Pathologist [facility] POC Glucose 144 65 - 199 mg/dL [facility] Comment: Supplemental ranges: <140 mg/dL before meals <180 mg/dL all other times of the day Blood specimen (specimen) 04/20/2020 11:46 PM EDT 04/20/2020 11:46 PM EDT Hong Rosenthal MD POINT OF CARE TEST O ISAIAH Performing Organization Address [facility] Street/[facility] Co de Phone Number [facility] [place] [place] [address] * POCT Glucose (04/20/2020 7:42 PM EDT) POC Glucose 136 65 - 199 mg/dL [facility] Comment: Supplemental ranges: <140 mg/dL before meals <180 mg/dL all other times of the day Blood specimen (specimen) 04/20/2020 7:42 PM EDT 04/20/2020 7:42 PM EDT Hong Rosenthal MD POINT OF CARE TEST O ISAIAH Performing Organization Address [facility] [address] [facility] Co de Phone Number [facility] [place] [place] [address] * (ABNORMAL) Troponin (04/20/2020 5:35 PM EDT) Pathologist [facility] Troponin-T 0.17(H) 0.00 - 0.00 ng/mL [facility] Comment: The 99th percentile for Troponin T is less than 0.01 ng/mL, any detectable cTnT concentration using this assay should be considered elevated. According to the third universal definition of myocardial infarction the following criteria with a clinical presentation consistent with acute myocardial ischemia meets the diagnosis for a myocardial infarction (GA). Detection of a rise and/or fall of cTnT, with at least one value greater than the 99th percentile (> or = 0.01) and with at least one of the following ?? Symptoms of ischemia ?? New or presumed new significant ED-rfcocxl-A wave (ST-T) changes or new left bundle [...] additional sample may be indicated. Reference: Third Stanford Definition of Myocardial Infarction. Journal of the [place] [employer] 2012;60:1581-98 Blood specimen (specimen) 04/20/2020 5:35 PM EDT 04/20/2020 5:54 PM EDT Narrative Resulting Agency Comment Spec In Lab Magdalene Lopez MD CHEMISTRY ORDERABLES Performing Organization Address [facility] [address]/ZIP Co de Phone Number [facility] [place] [place] [address] * POCT Glucose (04/20/2020 4:01 PM EDT) Pathologist [facility] POC Glucose 135 65 - 199 mg/dL [facility] Comment: Supplemental ranges: <140 mg/dL before meals <180 mg/dL all other times of the day Blood specimen (specimen) 04/20/2020 4:01 PM EDT 04/20/2020 4:01 PM EDT Magdalene Lopez MD POINT OF CARE TEST O RDERABLES Performing Organization Address [facility] Co de Phone Number [facility] [place] [address] * EKG 12 Lead (04/20/2020 2:08 PM EDT) Ventricular rate 97 BPM MUSE SYSTEM Atrial Rate 97 BPM MUSE SYSTEM P-R Interval 150 ms MUSE SYSTEM QRS Duration 126 ms MUSE SYSTEM Q-T Interval 382 ms MUSE SYSTEM QTC Calculated (Bezet) 485 ms MUSE SYSTEM Calculated P [place] 58 degrees MUSE SYSTEM Calculated R [place] 35 degrees MUSE SYSTEM Calculated T [place] 11 degrees MUSE SYSTEM INTERPRETATION Normal sinus rhythm with sinus arrhythmia Right bundle branch block Abnormal ECG When compared with ECG of 20-APR-2020 11:30, (unconfirmed) No significant change was found Confirmed by Lisbeth Cain ([id number]) on 04/21/2020 3:48:13 PM MUSE SYSTEM 04/20/2020 2:08 PM EDT 04/21/2020 3:48 PM EDT Magdalene Lopez MD ECG ORDERABLES Performing Organization Address [facility] [address]/[facility] Co de Phone Number MUSE SYSTEM * POCT Glucose (04/20/2020 11:32 AM EDT) [facility] POC Glucose 140 65 - 199 mg/dL [facility] Comment: Supplemental ranges: <140 mg/dL before meals <180 mg/dL all other times of the day Blood specimen (specimen) 04/20/2020 11:32 AM EDT 04/20/2020 11:32 AM EDT Magdalene Lopez MD POINT OF CARE TEST O RDERABLES [facility] [place] [place] [address] * EKG 12 Lead (04/20/2020 11:30 AM EDT) [facility] Ventricular rate 77 BPM MUSE SYSTEM Atrial Rate 77 BPM MUSE SYSTEM P-R Interval 160 ms MUSE SYSTEM QRS Duration 120 ms MUSE SYSTEM Q-T Interval 406 ms MUSE SYSTEM QTC Calculated (Bezet) 459 ms MUSE SYSTEM Calculated P [place] 48 degrees MUSE SYSTEM Calculated R [place] 27 degrees MUSE SYSTEM Calculated T [place] 18 degrees MUSE SYSTEM INTERPRETATION Sinus rhythm with premature atrial contractions Right bundle branch block Abnormal ECG When compared with ECG of 20-APR-2020 02:33, (unconfirmed) Sinus rhythm has replaced Atrial fibrillation Vent. rate has decreased BY ??[address] no longer depressed in Anterolateral leads Nonspecific T wave abnormality has replaced inverted T waves in Inferior leads Confirmed by Lisbeth Cain ([id number]) on 04/21/2020 3:48:08 PM MUSE SYSTEM 04/20/2020 11:3 0 AM EDT 04/21/2020 3:48 PM EDT Magdalene Lopez MD ECG ORDERABLES Performing Organization Address [facility] [address]/ZIP Co de Phone Number MUSE SYSTEM * (ABNORMAL) Troponin (04/20/2020 11:30 AM EDT) [facility] Troponin-T 0.22(H) 0.00 - 0.00 ng/mL [facility] Comment: The 99th percentile for Troponin T is less than 0.01 ng/mL, any detectable cTnT concentration using this assay should be considered elevated. According to the third universal definition of myocardial infarction the following criteria with a clinical presentation consistent with acute myocardial ischemia meets the diagnosis for a myocardial infarction (GA). Detection of a rise and/or fall of cTnT, with at least one value greater than the 99th percentile (> or = 0.01) and with at least one of the following ?? Symptoms of ischemia ?? New or presumed new significant OT-hxtsqaw-R wave (ST-T) changes or new left bundle [...] additional sample may be indicated. Reference: Third Stanford Definition of Myocardial Infarction. Journal of the [place] [employer] 2012;60:1581-98 Blood specimen (specimen) 04/20/2020 11:30 AM EDT 04/20/2020 11:45 AM EDT Narrative Resulting Agency Comment Spec In Lab Magdalene Lopez MD CHEMISTRY ORDERABLES [facility] [place] [place] [address] * ECHO COMPLETE (04/20/2020 10:20 AM EDT) EF 59 HEARTLAB SYSTEM Anatomical Region Laterality Modality Other 04/20/2020 Narrative 04/20/2020 12:35 PM EDT Procedure: ?Transthoracic Echocardiogram Patient: ?HEIDY SHANNAN A ? (Age): 1940(79y) Med Rec#: ? [id number] ?Sex: ?F ? [place] [facility] [place]Ht / Wt: ??152(cm)/86(kg) Pt. Loc: ?ICU ? BSA: ?1.82 Study Date: ?? 04/20/2020 ?Pt. Type: Inpatient Tape: ? Referring: BETHANY IRELAND A Reading: Ari Rutledge ([id number]) Chamber Walker: Hong Ahn [facility] Interpreting Fellow: Cris Rosario ([id number]) Interpreting Fellow: Oscar Barger ([id number]) Diagnosis: *Nonrheumatic aortic (valve) stenosis (I35.0) BP: [...] Vmax ?1.48 ? m/sec ? MV deceleration [id number] ?msec ? MV A-wave Vmax ?0.78 ? [...] ? Mid-Inferior ?Normal ? Mid-Inferoseptal ?Normal ? Petroleum-Septal ? Normal ? Petroleum-Anterior ? Normal ? Petroleum-Lateral ?Normal ? Petroleum-Inferior ? Normal ? Petroleum-Tip ?Normal ? This report has been electronically signed by: Ari Rutledge MD ? 04/20/2020 12:35:04 Images reviewed and interpretation verified [facility] Procedure Note Ari Rutledge MD - 04/20/2020 Procedure: Transthoracic Echocardiogram Patient: HEIDY Francis (Age): 1940(79y) Med Rec#: [id number] Sex: F [place] [facility] [place] Ht / Wt: 152(cm)/86(kg) Pt. Loc: ICU BSA: 1.82 Study Date: 04/20/2020 Pt. Type: Inpatient Tape: Referring: BETHANY IRELAND A Reading: Ari Rutledge ([id number]) Chamber Walker: Hong Ahn [facility] Interpreting Fellow: Cris Rosario ([id number]) Interpreting Fellow: Oscar Barger ([id number]) Diagnosis: *Nonrheumatic aortic (valve) stenosis (I35.0) BP: [...] MV E-wave Vmax 1.48 m/sec MV deceleration [id number] msec MV A-wave Vmax 0.78 m/sec MV [...] Normal Mid-Posterolateral Normal Mid-Inferior Normal Mid-Inferoseptal Normal Petroleum-Septal Normal Petroleum-Anterior Normal Petroleum-Lateral Normal Petroleum-Inferior Normal Petroleum-Tip Normal This report has been electronically signed by: Ari Rutledge MD 04/20/2020 12:35:04 Images reviewed and interpretation verified [facility] Magdalene Lopez MD ECHO ORDERABLES * POCT Glucose (04/20/2020 8:10 AM EDT) POC Glucose 128 65 - 199 mg/dL [facility] Comment: Supplemental ranges: <140 mg/dL before meals <180 mg/dL all other times of the day Blood specimen (specimen) 04/20/2020 8:10 AM EDT 04/20/2020 8:10 AM EDT Magdalene Lopez MD POINT OF CARE TEST O RDERABLES Performing Organization Address City/[facility] [address]/ZIP Co de Phone Number [facility] [place] [address] * Lactate, whole blood, [place] to lab [place] [place] [place] (04/20/2020 5:25 AM EDT) Lactate WB 1.6 0.5 - 2.2 mmol/L [facility] Blood specimen (specimen) Venous Draw / Unknown 04/20/2020 5:25 AM EDT 04/20/2020 6:46 AM EDT Narrative Resulting Agency Comment Spec In Lab Ginna Josue DO CHEMISTRY ORDERABLES [facility] [place] [place] [address] * POCT Glucose (04/20/2020 5:23 AM EDT) POC Glucose 151 65 - 199 mg/dL [facility] Comment: Supplemental ranges: <140 mg/dL before meals <180 mg/dL all other times of the day Blood specimen (specimen) 04/20/2020 5:23 AM EDT 04/20/2020 5:23 AM EDT Magdalene Lopez MD POINT [place] [address] * (ABNORMAL) Differential, Automated (04/20/2020 3:25 AM EDT) Neutrophils % 86.0 % [facility] Neutr Abs (ANC) 15.43(H) 1.70 - 6.10 x10(3)/[facility] LABORATORY Lymphocytes % 5.4 % [facility] Lymphocytes Abs 1.0 0.9 - 3.2 x10(3)/[facility] LABORATORY Monocytes % 5.9 % [facility] Monocyte Abs 1.0(H) 0.3 - 0.9 x10(3)/[facility] LABORATORY Eosinophils % 0.4 % [facility] Eosinophils Abs 0.1 0.0 - 0.4 x10(3)/[facility] LABORATORY Basophils % 0.3 % [facility] Basophils Abs 0.1 0.0 - 0.1 x10(3)/[facility] LABORATORY Immature Gran % 2.00 % [facility] Comment: Immature granulocytes(IG's)percentage and absolute count will include metamyelocytes, myelocytes, and promyelocytes. Blood smears from CBCs yielding IG's will be scanned manually for concordance. If this scan disagrees with the automated IG or if promyelocytes are noted, a manual differential will be performed. Nanci Gran Abs 0.36(H) 0.00 - 0.04 x10(3)/[facility] LABORATORY Blood specimen (specimen) 04/20/2020 3:25 AM EDT 04/20/2020 3:32 AM EDT Narrative Resulting Agency Comment Spec In Lab Tiesha Morgan MD HEMATOLOGY ORDERABLE S [facility] [place] [address] * (ABNORMAL) Hemogram (04/20/2020 3:25 AM EDT) [facility] WBC 17.9(H) 4.0 - 9.5 x10(3)/[facility] RBC 3.75(L) 4.00 - 5.21 x10(6)/[facility] LABORATORY Hemoglobin 10.3(L) 11.7 - 15.5 gm/dL [facility] Hematocrit 32.6(L) 35.7 - 45.8 % [facility] MCV 86.9 82.6 - 94.4 fL [facility] MCH 27.5 27.1 - 32.0 pg [facility] MCHC 31.6(L) 31.7 - 35.0 gm/dL [facility] Platelets 217 145 - 357 x10(3)/[facility] RDWSD 48.5(H) 37.0 - 46.0 [facility] LABORATORY RDWCV 15.0(H) 11.5 - 14.1 % [facility] MPV 10.7 7.6 - 12.9 [facility] LABORATORY nRBC % Auto 0.0 % [facility] nRBC Abs Auto 0.000 0.000 - 0.000 x10(3)/[facility] LABORATORY Blood specimen (specimen) 04/20/2020 3:25 AM EDT 04/20/2020 3:32 AM EDT Narrative Resulting Agency Comment Spec In Lab Tiesha Morgan MD [place] [address] * POCT Glucose (04/20/2020 3:08 AM EDT) [facility] POC Glucose 134 65 - 199 mg/dL [facility] Comment: Supplemental ranges: <140 mg/dL before meals <180 mg/dL all other times of the day Blood specimen (specimen) 04/20/2020 3:08 AM EDT 04/20/2020 3:08 AM EDT Magdalene Lopez MD POINT OF CARE TEST O RDERABLES Performing Organization Address City/[facility] [address]/ZIP Co de Phone Number [facility] [place] [address] * Lipase (04/20/2020 2:43 AM EDT) Lipase 11 0 - 60 unit/L [facility] Blood specimen (specimen) Venous Draw / Unknown 04/20/2020 2:43 AM EDT 04/20/2020 3:32 AM EDT Narrative Resulting Agency Comment Spec In Lab Jos Sun MD CHEMISTRY ORDERABLES Performing Organization Address City/[facility] [address]/[facility] Co de Phone Number [facility] [place] [address] * (ABNORMAL) Hepatic Function Panel (04/20/2020 2:43 AM EDT) Total Protein Not Perf 6.1 - 8.0 [facility] Comment:Duplicate order, alr addis done in CMP Albumin Not Perf 3.2 - 5.2 [facility] Comment:Duplicate order, alr addis done in CMP AST Not Perf 0 - 30 [facility] Comment:Duplicate order, alr addis done in CMP ALT Not Perf 0 - 30 [facility] Comment:Duplicate order, alr addis done in CMP Alk Phos Not Perf 35 - 105 [facility] Comment:Duplicate order, alr addis done in CMP Total Bilirubin Not Perf 0.2 - 1.3 [facility] Comment:Duplicate order, alr addis done in CMP Bili, Direct 0.5(H) 0.0 - 0.3 mg/dL [facility] Blood specimen (specimen) Venous Draw / Unknown 04/20/2020 2:43 AM EDT 04/20/2020 3:32 AM EDT Narrative Resulting Agency Comment Spec In Lab Jos Sun MD CHEMISTRY ORDERABLES Performing Organization Address [facility] [address]/[facility] de Phone Number [facility] [place] [address] * Phosphorus (04/20/2020 2:43 AM EDT) Phosphorus 3.6 2.5 - 4.5 mg/dL [facility] Blood specimen (specimen) Venous Draw / Unknown 04/20/2020 2:43 AM EDT 04/20/2020 3:32 AM EDT Narrative Resulting Agency Comment Spec In Lab Tiesha Morgan MD CHEMISTRY ORDERABLES Performing Organization Address [facility] Phone Number [facility] [address] * Magnesium (04/20/2020 2:43 AM EDT) Magnesium 0.71 0.69 - 1.07 mmol/L [facility] Blood specimen (specimen) Venous Draw / Unknown 04/20/2020 2:43 AM EDT 04/20/2020 3:32 AM EDT Narrative Resulting Agency Comment Spec In Lab Tiesha Morgan MD CHEMISTRY ORDERABLES Performing Organization Address [facility] Phone Number [facility] [place] [address] * (ABNORMAL) Comprehensive metabolic panel (non-fasting) (04/20/2020 2:43 AM EDT) Glucose Lvl 129 65 - 199 mg/dL [facility] Comment:Diabetes: >=200 mg/d L plus symptoms BUN 30(H) 8 - 18 mg/dL [facility] Creatinine 1.26(H) 0.70 - 1.20 mg/dL [facility] Sodium 134(L) 135 - 145 mmol/L [facility] Potassium 3.9 3.5 - 5.0 mmol/L [facility] Comment: Please note: ??Patients with WBC >100,000 may have falsely elevated Potassium levels. ??For accurate Potassium quantification in these patients send serum separator tube (gold top) for subsequent determinations. ??Contact the Clinical Chemistry Laboratory if there are any questions. Chloride 100 98 - 107 mmol/L [facility] CO2 20(L) 22 - 31 mmol/L [facility] Anion Gap 14 5 - 15 mmol/L [facility] Calcium 8.3(L) 8.5 - 10.5 mg/dL [facility] Total Protein 6.1 6.1 - 8.0 gm/dL [facility] Albumin 2.8(L) 3.2 - 5.2 gm/dL [facility] AST 18 0 - 30 unit/L [facility] ALT 22 0 - 30 unit/L [facility] Alk Phos 139(H) 35 - 105 unit/L [facility] Total Bilirubin 1.5(H) 0.2 - 1.3 mg/dL [facility] Estimated GFR 40(L) >=60 mL/min/1. 73 m?? [facility] Comment: The eGFR was calculated using the CKD-EPI equation. As with all creatinine based estimates of kidney function, eGFR values calculated with the CKD-EPI equation are not accurate in patients with acute kidney failure, extremes of body mass or the acutely ill. [email or web address]/[facility] [place] eGFR 47(L) >=60 mL/min/1. 73 m?? [facility] Comment: The eGFR was calculated using the CKD-EPI equation. As with all creatinine based estimates of kidney function, eGFR values calculated with the CKD-EPI equation are not accurate in patients with acute kidney failure, extremes of body mass or the acutely ill. [email or web address] [place] [place] Blood specimen (specimen) 04/20/2020 2:43 AM EDT 04/20/2020 3:12 AM EDT Narrative Resulting Agency Comment Spec In Lab Magdalene Lopez MD CHEMISTRY ORDERABLES Performing Organization Address [facility] [address]/[facility] Co de Phone Number [facility] [place] [address] * (ABNORMAL) Prothrombin Time (04/20/2020 2:43 AM EDT) PT 15.7(H) 9.4 - 12.5 sec [facility] INR 1.4 [facility] Comment: An INR <2.0 indicates [...] MD HEMATOLOGY ORDERABLE S Performing Organization Address [facility] [address]/[facility] de Phone Number [facility] [place] [address] * Troponin (04/20/2020 2:43 AM EDT) Troponin-T <0.01 0.00 - 0.00 ng/mL [facility] Comment: The 99th percentile for Troponin T is less than 0.01 ng/mL, any detectable cTnT concentration using this assay should be considered elevated. According to the third universal definition of myocardial infarction the following criteria with a clinical presentation consistent with acute myocardial ischemia meets the diagnosis for a myocardial infarction ([place]). Detection of a rise and/or fall of cTnT, with at least one value greater than the 99th percentile (> or = 0.01) and with at least one of the following ?? Symptoms of ischemia ?? New or presumed new significant OI-jglxbxd-A wave (ST-T) changes or new left bundle [...] additional sample may be indicated. Reference: Third Stanford Definition of Myocardial Infarction. Journal of the [place] [employer] 2012;60:1581-98 Blood specimen (specimen) 04/20/2020 2:43 AM EDT 04/20/2020 3:12 AM EDT Narrative Resulting Agency Comment Spec In Lab Magdalene Lopez MD CHEMISTRY ORDERABLES Performing Organization Address City/[facility] [address]/ZIP Co de Phone Number [facility] [place] [address] * EKG 12 Lead (04/20/2020 2:33 AM EDT) Ventricular rate 168 BPM MUSE SYSTEM Atrial Rate 174 BPM MUSE SYSTEM QRS Duration 128 ms MUSE SYSTEM Q-T Interval 288 ms MUSE SYSTEM QTC Calculated (Bezet) 481 ms MUSE SYSTEM Calculated R [place] 82 degrees MUSE SYSTEM Calculated T [place] -18 degrees MUSE SYSTEM INTERPRETATION Atrial fibrillation [...] fellows interpretation Confirmed by fellow Ren Quinn ([id number]) on 04/20/2020 11:47:57 AM Confirmed by Lisbeth Cain ([id number]) on 04/21/2020 7:47:13 PM MUSE SYSTEM 04/20/2020 2:33 AM EDT 04/21/2020 7:47 PM EDT Magdalene Lopez MD ECG ORDERABLES MUSE SYSTEM * POCT Glucose (04/20/2020 12:36 AM EDT) POC Glucose 112 65 - 199 mg/dL [facility] Comment: Supplemental ranges: <140 mg/dL before meals <180 mg/dL all other times of the day Blood specimen (specimen) 04/20/2020 12:36 AM EDT 04/20/2020 12:36 AM EDT Magdalene Lopez MD POINT OF CARE TEST O RDERABLES Performing Organization Address [facility] [address]/[facility] de Phone Number [facility] [place] [address] * EKG 12 Lead (04/19/2020 8:23 PM EDT) Ventricular rate 100 BPM MUSE SYSTEM Atrial Rate 100 BPM MUSE SYSTEM P-R Interval 156 ms MUSE SYSTEM QRS Duration 116 ms MUSE SYSTEM Q-T Interval 368 ms MUSE SYSTEM QTC Calculated (Bezet) 474 ms MUSE SYSTEM Calculated P [place] 59 degrees MUSE SYSTEM Calculated R [place] 26 degrees MUSE SYSTEM Calculated T [place] 2 degrees MUSE SYSTEM INTERPRETATION Normal sinus rhythm Right bundle branch block Abnormal ECG No previous ECGs available Confirmed by Lisbeth Cain ([email or web address]) on 04/21/2020 3:47:08 PM MUSE SYSTEM 04/19/2020 8:23 PM EDT 04/21/2020 3:47 PM EDT Magdalene Lopez MD ECG ORDERABLES Performing Organization Address [facility] [address]/[facility] de Phone Number MUSE SYSTEM * POCT Glucose (04/19/2020 7:50 PM EDT) POC Glucose 153 65 - 199 mg/dL [facility] Comment: Supplemental ranges: <140 mg/dL before meals <180 mg/dL all other times of the day Blood specimen (specimen) 04/19/2020 7:50 PM EDT 04/19/2020 7:50 PM EDT Magdalene Lopez MD POINT OF CARE TEST O RDERABLES Performing Organization Address [facility] [address]/[facility] Co de Phone Number [facility] [place] [address] * POCT Glucose (04/19/2020 5:58 PM EDT) POC Glucose 151 65 - 199 mg/dL [facility] Comment: Supplemental ranges: <140 mg/dL before meals <180 mg/dL all other times of the day Blood specimen (specimen) 04/19/2020 5:58 PM EDT 04/19/2020 5:58 PM EDT Magdalene Lopez MD POINT OF CARE TEST O RDERABLES [facility] [place] [place] [address] * Request For 2nd Read CT Abdomen [...] please contact the number below. ? Narrative 04/19/2020 4:27 PM EDT EXAMINATION: ??REQUEST FOR 2ND READ CT ABDOMEN AND PELVIS CLINICAL HISTORY: ??cholecystitis, eval CBD as well; What Modality is the exam? CT Scan; Body Part (please add comments as necessary): abd/pelvis; Sending Institution [facility]; Date of exam 20200418; I believe a [...] (please add comments as necessary): abd/pelvis;Sending Institution [facility]; Date of exam 20200418; I believe a [...] number below. Electronically signed by: Harris Shepard [facility]([phone]), at 04/19/2020 4:27 PM Magdalene Lopez MD IMG OUTSIDE INTERPRE TATION ORDERABLES * (ABNORMAL) Differential, Automated (04/19/2020 4:04 PM EDT) Neutrophils % 85.2 % [facility] Neutr Abs (ANC) 14.50(H) 1.70 - 6.10 x10(3)/[facility] LABORATORY Lymphocytes % 7.8 % [facility] Lymphocytes Abs 1.3 0.9 - 3.2 x10(3)/[facility] LABORATORY Monocytes % 5.7 % [facility] Monocyte Abs 1.0(H) 0.3 - 0.9 x10(3)/[facility] LABORATORY Eosinophils % 0.2 % [facility] Eosinophils Abs 0.0 0.0 - 0.4 x10(3)/[facility] LABORATORY Basophils % 0.2 % [facility] Basophils Abs 0.0 0.0 - 0.1 x10(3)/[facility] LABORATORY Immature Gran % 0.90 % [facility] Comment: Immature granulocytes(IG's)percentage and absolute count will include metamyelocytes, myelocytes, and promyelocytes. Blood smears from CBCs yielding IG's will be scanned manually for concordance. If this scan disagrees with the automated IG or if promyelocytes are noted, a manual differential will be performed. Nanci Gran Abs 0.16(H) 0.00 - 0.04 x10(3)/mc L [facility] Blood specimen (specimen) 04/19/2020 4:04 PM EDT 04/19/2020 4:30 PM EDT Narrative Resulting Agency Comment Spec In Lab Magdalene Lopez MD HEMATOLOGY ORDERABLE S [facility] [place] [place] [address] * (ABNORMAL) Hemogram (04/19/2020 4:04 PM EDT) WBC 17.0(H) 4.0 - 9.5 x10(3)/[facility] LABORATORY RBC 4.07 4.00 - 5.21 x10(6)/[facility]ATORY Hemoglobin 11.2(L) 11.7 - 15.5 gm/dL [facility] Hematocrit 34.8(L) 35.7 - 45.8 % [facility] MCV 85.5 82.6 - 94.4 [facility] LABORATORY MCH 27.5 27.1 - 32.0 pg [facility] MCHC 32.2 31.7 - 35.0 gm/dL [facility] Platelets 220 145 - 357 x10(3)/[facility] LABORATORY RDWSD 47.3(H) 37.0 - 46.0 [facility]ORATORY RDWCV 15.1(H) 11.5 - 14.1 % [facility] MPV 11.3 7.6 - 12.9 [facility]ORY nRBC % Auto 0.0 % [facility] nRBC Abs Auto 0.000 0.000 - 0.000 x10(3)/[facility] Blood specimen (specimen) 04/19/2020 4:04 PM EDT 04/19/2020 4:30 PM EDT Narrative Resulting Agency Comment Spec In Lab Magdalene Lopez MD HEMATOLOGY ORDERABLE S Performing Organization Address City/[facility] [address]/[facility] Co de Phone Number [facility] [place] [place] [address] * (ABNORMAL) Prothrombin Time (04/19/2020 4:04 PM EDT) PT 16.9(H) 9.4 - 12.5 sec [facility] INR 1.5 [facility] Comment: An INR <2.0 indicates [...] MD HEMATOLOGY ORDERABLE S Performing Organization Address [facility] [address]/[facility] Co de Phone Number [facility] [place] [address] * (ABNORMAL) Comprehensive metabolic panel (non-fasting) (04/19/2020 4:04 PM EDT) Pathologist [facility] Glucose Lvl 146 65 - 199 mg/dL [facility] Comment:Diabetes: >=200 mg/d L plus symptoms BUN 26(H) 8 - 18 mg/dL [facility] Creatinine 1.37(H) 0.70 - 1.20 mg/dL [facility] Sodium 135 135 - 145 mmol/L [facility] Potassium 4.1 3.5 - 5.0 mmol/L [facility] Comment: Please note: ??Patients with WBC >100,000 may have falsely elevated Potassium levels. ??For accurate Potassium quantification in these patients send serum separator tube (gold top) for subsequent determinations. ??Contact the Clinical Chemistry Laboratory if there are any questions. Chloride 97(L) 98 - 107 mmol/L [facility] CO2 20(L) 22 - 31 mmol/L [facility] Anion Gap 18(H) 5 - 15 mmol/L [facility] Calcium 9.1 8.5 - 10.5 mg/dL [facility] Total Protein 7.1 6.1 - 8.0 gm/dL [facility] Albumin 3.6 3.2 - 5.2 gm/dL [facility] AST 28 0 - 30 unit/L [facility] ALT 30 0 - 30 unit/L [facility] Alk Phos 148(H) 35 - 105 unit/L [facility] Total Bilirubin 2.1(H) 0.2 - 1.3 mg/dL [facility] Estimated GFR 37(L) >=60 mL/min/1. 73 m?? [facility] Comment: The eGFR was calculated using the CKD-EPI equation. As with all creatinine based estimates of kidney function, eGFR values calculated with the CKD-EPI equation are not accurate in patients with acute kidney failure, extremes of body mass or the acutely ill. [email or web address]/[email or web address] [place] eGFR 42(L) >=60 mL/min/1. 73 m?? [facility] Comment: The eGFR was calculated using the CKD-EPI equation. As with all creatinine based estimates of kidney function, eGFR values calculated with the CKD-EPI equation are not accurate in patients with acute kidney failure, extremes of body mass or the acutely ill. [email or web address]/[facility] [place] Blood specimen (specimen) 04/19/2020 4:04 PM EDT 04/19/2020 4:30 PM EDT Narrative Resulting Agency Comment Spec In Lab Magdalene Lopez MD CHEMISTRY ORDERABLES [facility] [place] [address] * ABORH Recheck Status (04/19/2020 3:57 PM EDT) ABORH Recheck Order Order Placed [facility] ABORH Type Recheck Complete [facility] Blood specimen (specimen) 04/19/2020 3:57 PM EDT 04/19/2020 4:23 PM EDT Narrative Resulting Agency Comment Spec In Lab Magdalene Lopez MD BLOOD BANK LAB ORDER JAMIE [facility] [place] [place] [address] * Antibody screen (04/19/2020 3:57 PM EDT) Ab Screen Interp Negative [facility] Expires at 2359 on: 04/22/2020 [facility] Blood specimen (specimen) 04/19/2020 3:57 PM EDT 04/19/2020 4:23 PM EDT Narrative Resulting Agency Comment Spec In Lab Magdalene Lopez MD BLOOD BANK LAB ORDER JAMIE Performing Organization Address City/[facility] [address]/ZIP Co de Phone Number [facility] [place] [place] [address] * ABO/Rh Typing (04/19/2020 3:57 PM EDT) ABORH Type O Pos [facility] Blood specimen (specimen) 04/19/2020 3:57 PM EDT 04/19/2020 4:23 PM EDT Narrative Resulting Agency Comment Spec In Lab Magdalene Lopez MD BLOOD BANK LAB ORDER JAMIE Performing Organization Address City/[facility] [address]/ZIP Co de Phone Number [facility] [place] [place] [address] documented in this encounter Visit Diagnoses Not on filedocumented in this encounter Admitting Diagnoses Diagnosis Cholecystitis [...] on Sun04/22/20 at 0900, Until Discontinued, Routine Given 05/08/2020 8:04 AM EDT 200 mg Given 05/07/2020 8:49 PM EDT 200 mg Given 05/07/2020 8:10 AM EDT 200 mg amoxicillin-clavulanate (Augmentin) 875-125 mg per tablet 1 tablet 1 tablet, Oral, 2 TIMES DAILY, First dose on Sun04/30/20 at 2100, Until Discontinued, Routine, Indication for (Active or Suspected): GI/Intra-abdominal Given 05/08/2020 8:05 AM EDT 1 tablet Given 05/07/2020 8:49 PM EDT 1 tablet Given 05/07/2020 8:11 AM EDT 1 tablet aspirin chewable tablet 81 mg 81 mg, [...] Constipation, DO NOT CRUSH OR OPEN, Routine clopidogreL (Plavix) tablet 75 mg 75 mg, Oral, DAILY, First dose on Sun04/22/20 at 0900, Until Discontinued, Routine Given 05/08/2020 [...] 37.5 grams., Routine insulin glargine VIAL injection 25 Units 25 [...] Given 05/07/2020 4:53 PM EDT 1 Units labetalol (NORMODYNE,TRANDATE) injection 20 mg 20 mg, Intravenous, EVERY 2 HOURS PRN, Starting on 04/24/20 at 1613, Until 05/08/20 at 1535, High Blood Pressure, Routine Given 04/25/2020 10: 22 PM EDT 20 mg Given 04/25/2020 4:35 PM EDT 20 mg Given 04/24/2020 11:43 PM EDT 20 mg lidocaine (XYLOCAINE) 10 mg/mL (1 %) injection 3 mg 3 mg (0.3 mL), Subcutaneous, ONCE PRN, 1 dose, Starting on 05/02/20 at 1050, Until 05/08/20 at 1535, for discomfort with PIV insertion, Routine losartan (Cozaar) tablet 25 mg 25 mg, Oral, DAILY, First dose on 05/01/20 at 1100, Until Discontinued, Routine Given 05/08/2020 8:04 AM EDT 25 mg Given 05/07/2020 8:10 AM EDT 25 mg Given 05/06/2020 9:27 AM EDT 25 mg melatonin tablet 6 mg 6 mg, Oral, NIGHTLY, First dose on Sun04/30/20 at 2100, Until Discontinued, Routine Given 05/07/2020 8:49 PM EDT 6 mg Given 05/06/2020 8:50 PM EDT 6 mg Given 05/05/2020 8:23 PM EDT 6 mg metoprolol succinate XL (Toprol-XL) tablet 300 mg 300 mg, Oral, NIGHTLY, First dose on 04/24/20 at 2100, Until Discontinued, DO NOT CRUSH OR OPEN, Routine Given 05/07/2020 8:49 PM EDT 300 mg Given 05/06/2020 8:49 PM EDT 300 mg Given 05/05/2020 8:22 PM EDT 300 mg oxyCODONE (Roxicodone) tablet 5 mg 5 mg, Oral, EVERY 4 HOURS PRN, Starting on Sun04/19/20 at 1612, Until Sun05/08/20 at 1535, Pain, Routine Given 04/29/2020 11:16 PM EDT 5 mg Given 04/29/2020 7:05 PM EDT 5 mg Given 04/29/2020 2:49 PM EDT 5 mg pantoprazole EC (Protonix) tablet 40 mg 40 mg, Oral, 2 TIMES DAILY, First dose on Sun05/03/20 at 2100, Until Discontinued, DO NOT CRUSH OR OPEN Given 05/08/2020 8:05 AM EDT 40 mg Given 05/07/2020 8:49 PM EDT 40 mg Given 05/07/2020 8:11 AM EDT 40 mg polyethylene glycoL (Miralax) packet 17 g 17 g, Oral, DAILY, First dose on Sun04/20/20 at 0830, Until Discontinued, Hold for loose stools please! Thanks!, Routine Given 05/05/2020 9:32 AM EDT 17 g rosuvastatin (Crestor) tablet 20 mg [...] First dose on 05/02/20 at 1145, Until Discontinued, Routine Given 05/08/2020 [...] link provided on this medication record., Routine documented in this encounter Active and Recently [...] Subramanian RN)1145 (Given - Provider: Kristi Gallegos, LYLA)204 (Given - Provider: Tete Tanner, LYLA) 0600 (Not Given - Provider: Tete Tanner RN - Reason: Patient/family refused)1230 (Not Given - Provider: Kristi Gallegos RN - Reason: Patient/family refused) AMIOdarone (Cordarone; Pacerone) tablet 200 mg 200 mg, Oral, 2 TIMES DAILY, First dose on Noreen 04/22/20 at 0900, Until Discontinued, Routine 0927 (Given - Provider: Fahad Muhammad RN)2049 (Given - Provider: Sandy Subramanian RN) 0810 (Given - Provider: Kristi Gallegos RN)204 (Given - Provider: Tete Tanner RN) 0804 (Given - Provider: Kristi Gallegos LYLA) amoxicillin-clavulanate (Augmentin) 875-125 mg per tablet 1 tablet 1 tablet, Oral, 2 TIMES DAILY, First dose on Sun04/30/20 at 2100, Until Discontinued, Routine, Indication for (Active or Suspected): GI/Intra-abdominal 926 (Given - Provider: Fahad Muhammad, RN)2048 (Given - Provider: Sandy Subramanian, RN) 08 (Given - Provider: Kristi Gallegos RN)2048 (Given - Provider: Tete Tanner, LYLA) 08 (Given - Provider: Kristi Gallegos, RN) aspirin chewable tablet 81 mg 81 mg, Oral, DAILY, First dose on Sun05/06/20 at 1315, Until Discontinued, Routine 1505 (Given - Provider: Fahad Muhammad RN) 0810 (Given - Provider: Kristi Gallegos RN) 0804 (Given - Provider: Kristi Gallegos, LYLA) clopidogreL (Plavix) tablet 75 mg 75 mg, Oral, DAILY, First dose on Sun04/22/20 at 0900, Until Discontinued, Routine 926 (Given - Provider: Fahad Muhammad RN) 0811 (Given - Provider: Kristi Gallegos, LYLA) 0804 (Given - Provider: Kristi Gallegos RN) insulin glargine VIAL injection 25 Units 25 Units, Subcutaneous, NIGHTLY, First dose on Sun04/19/20 at 2100, Until Discontinued, Routine 2056 (Given - Provider: Sandy Subramanian, LYLA) 2049 (Given - Provider: Tete Tanner, LYLA) insulin lispro (HumaLOG) VIAL injection 1-4 Units [...] hours., Routine 0400 (Not Given - Provider: Sandy Subramanian RN - Reason: Order parameters not met - Comment: BG [phone] (Not Given - Provider: Fahad Muhammad RN - Reason: Order parameters not met - Comment: BS [phone] (Given - Provider: Fahad Muhammad RN - Comment: BS 200)1651 (Given - Provider: Fahad Muhammad RN - Comment: BS 165)2051 (Given - Provider: Sandy Subramanian RN - [...] Until Discontinued, Routine 2049 (Given - Provider: Sandy Subramanian RN) 2048 (Given - Provider: Tete Tanner, LYLA) metoprolol succinate XL (Toprol-XL) tablet 300 mg 300 mg, Oral, NIGHTLY, First dose on 04/24/20 at 2100, Until Discontinued, DO NOT CRUSH OR OPEN, Routine 2048 (Given - Provider: Sandy Subramanian RN) 2048 (Given - Provider: Tete Tanner RN) pantoprazole EC (Protonix) tablet 40 mg 40 mg, Oral, 2 TIMES DAILY, First dose on 05/03/20 at 2100, Until Discontinued, DO NOT CRUSH OR OPEN 28 (Given - Provider: Fahad Muhammad RN)2049 (Given - Provider: Sandy Subramanian RN) 08 (Given - Provider: Kristi Gallegos, LYLA)2048 (Given - Provider: Tete Tanner, LYLA) 08 (Given - Provider: Kristi Gallegos RN) polyethylene glycoL (Miralax) packet 17 g 17 g, Oral, DAILY, First dose on Sun04/20/20 at 0830, Until Discontinued, Hold for loose stools please! Thanks!, Routine 09 (Not Given - Provider: Fahad Muhammad RN - Reason: Patient/family refused) 0900 (Not Given - Provider: Kristi Gallegos RN - Reason: Patient/family refused) 0900 (Not Given - Provider: Kristi Gallegos, LYLA - Reason: Patient/family refused) rosuvastatin (Crestor) tablet 20 mg 20 mg, Oral, EVERY EVENING, First dose (after last modification) on Sun04/23/20 at 1700, Until Discontinued, Routine 165 (Given - Provider: Fahad Muhammad RN) 165 (Given - Provider: Kristi Gallegos, LYLA) senna-docusate [...] on Sun04/19/20 at 2100, Until Discontinued, Routine 0934 (Given - Provider: Fahad Muhammad, LYLA)2057 (Given - Provider: Sandy Subramanian, LYLA) 08 (Given - Provider: Kristi Gallegos, LYLA)2050 (Given - Provider: Tete Tanner, RN) 08 (Given - Provider: Kristi Gallegos, RN) sodium chloride 0.9 % (flush) flush 5 mL 5 mL, Intravenous, 2 TIMES DAILY, First dose on Sun05/02/20 at 1145, Until Discontinued, Routine 0933 (Given - Provider: Fahad Muhammad, RN)2057 (Given - Provider: Sandy Subramanian, LYLA) 08 (Given - Provider: Kristi Gallegos, RN)899 (Not Given - Provider: Kristi Gallegos RN - Reason: Patient/family refused)2050 (Given - Provider: Tete Tanner, LYLA) 08 (Given - Provider: Kristi Gallegos, RN) [...] Routine documented in this encounter Care Teams Call Box Wirer Relationship Specialty Start Date End Date Reshma Baig MD [address] [place] [address] PCP - General Family Medicine 11/08/18 06/23/21 documented as of this encounter
--- OUTSIDE RECORDS SUMMARY | 2024-03-17 14:29 | XMS_ITS | Encounter Summary ---
Author Organization [facility] [place] [address] Care Team Providers Care Informatics Manager Name Role Phone Hannah Gagnon MD Primary Care Provider [phone] Encounter Details Date Type Department Care Team (Latest Contact Info) Description 10/03/2016 10:30 AM EST [place] [address] Diabetes mellitus type 2, uncontrolled Social History Tobacco Use Types Packs/Day Years Used Date Smoking Tobacco: Never Smokeless Tobacco: Never Sex and Gender Information Value Date Recorded Sex Assigned at Not on file Gender Identity Not on file Sexual Orientation Not on file documented as of this encounter Plan of Treatment Not on file documented as of this encounter Procedures Procedure Name Priority Date/Time Associated Diagnosis Comments HEMOGLOBIN A1C Routine 10/03/2016 10:43 AM EST Diabetes mellitus type 2, uncontrolled documented in this encounter Results * (ABNORMAL) Hemoglobin A1c (10/03/2016 10:43 AM EST) Hemoglobin A1C 8.8(H) 4.3 - 5.6 % [facility] Comment: Reference Range: 4.3 - 5.6% 5.7 - 6.4% - Increased Risk of Developing Diabetes Mellitus >=6.5% - Consistent with diagnosis of Diabetes Mellitus In the absence of hyperglycemia (i.e. plasma glucose > 200 mg/dL) or classic symptoms of hyperglycemia a repeat measurement of HbA1c should be performed on a separate sample to confirm the diagnosis. Diagnosis and Classification of Diabetes Mellitus, Diabetes Care 2013; 36: Suppl. 1, S67-24 Est Avg Gluc See note mg/dL [facility] [...] Additional resources are available on the ADA website: http://Visible Measures.Oncovision/DHMCadacalc Dago MOE, Stella J, Hernandez R, et al. ??Translating the A1C assay into estimated average glucose values. ??Diabetes Care 2008:31(8):9338-3989. Blood specimen (specimen) 10/03/2016 10:43 AM EST 10/03/2016 10:55 AM EST Narrative Resulting Agency Comment Spec In Lab Vahid Philip MD CHEMISTRY ORDERABLES [facility] [place] [address] documented in this encounter Visit Diagnoses Diagnosis Diabetes mellitus type 2, uncontrolled Type II or unspecified type diabetes mellitus without mention of complication, uncontrolled documented in this encounter Care Teams Informatics Manager Relationship Specialty Start Date End Date Hannah Gagnon MD [address] [place] [address] PCP - General 08/08/11 11/07/18 documented as of this encounter
--- OUTSIDE RECORDS SUMMARY | 2024-03-17 14:29 | XMS_ITS | Encounter Summary ---
[place] [address] Care Team Providers Care Freight Broker Agent Name Role Phone Hannah Gagnon MD Primary Care Provider Reason for Visit * Reason Onset Date Comments Prior Authorization 11/20/2014 Encounter Details Date Type Department Care Team ([facility] st Contact Info) Description 11/20/2014 Telephone [place] [address] Alexa Trujillo Prior Authorization Social History Tobacco Use Types Packs/Day Years Used Date Smoking Tobacco: Never Smokeless Tobacco: Never Sex and Gender Information Value Date Recorded Sex Assigned at Not on file Gender Identity Not on file Sexual Orientation Not on file documented as of this encounter Miscellaneous Notes * Telephone Encounter - Alexa Trujillo - 11/20/2014 11:51 AM EDT Medication Prior Authorization [place]IL[place] Medication name/dose/directions: FARXIGA 5MG TABLET/ TAKE 1 TABLET BY MOUTH DAILY Rationale for request: TYPE II DM Health plan: [employer] Authorizing special service representative name: JAYA Faxed to health plan on: 11/20/14 Health plan decision: Approved Quantity approved: 30 FOR 30 DAYS Authorization number: [id number] Start date: 12/01/14 End date: 11/30/17 Patient notified? no Pharmacy notified? yes documented in this encounter Plan of Treatment Not on file documented as of this encounter Visit Diagnoses Not on filedocumented in this encounter Care Teams Freight Broker Agent Relationship Specialty Start Date End Date Hannah Gagnon MD [address] [place] [address] PCP - General 08/08/11 11/07/18 documented as of this encounter
--- OUTSIDE RECORDS SUMMARY | 2024-03-17 14:29 | XMS_ITS | Encounter Summary ---
Author Organization [facility] [place] [address] Care Team Providers Care Career Technical Education Teacher Name Role Phone Hannah Gagnon MD Primary Care Provider Reason for Visit * Reason Onset Date Comments Medication Refill 05/06/2015 Encounter Details Date Type Department Care Team (Late st Contact Info) Description 05/06/2015 Refill [place] [address] Alissa Malave [facility] [place] [address] Social History Tobacco Use Types Packs/Day Years [...] filedocumented in this encounter Care Teams Career Technical Education Teacher Relationship Specialty Start Date End Date Hannah Gagnon MD [address] [place] [address] PCP - General 08/08/11 11/07/18 documented as of this encounter
--- OUTSIDE RECORDS SUMMARY | 2024-03-17 14:29 | XMS_ITS | Encounter Summary ---
Author Organization [facility] [place] [address] Care Team Providers Care Assurance Sourcing Manager Name Role Phone Hannah Gagnon MD Primary Care Provider [phone] Reason for Visit * Reason Onset Date Comments Medication Refill 12/10/2017 Encounter Details Date Type Department Care Team (Late st Contact Info) Description 12/10/2017 Refill [place] [address] Alissa Malave [facility] [place] [address] Social History Tobacco Use Types Packs/Day Years [...] on filedocumented in this encounter Care Teams Assurance Sourcing Manager Relationship Specialty Start Date End Date Hannah Gagnon MD [address] [place] [address] PCP - General 08/08/11 11/07/18 documented as of this encounter
--- OUTSIDE RECORDS SUMMARY | 2024-03-17 14:29 | XMS_ITS | Encounter Summary ---
Author Organization [facility] Address [facility] [place] [address] Care Team Providers Care Pit Laborer Name Role Phone Hannah Gagnon MD Primary Care Provider [phone] Reason for Visit * Reason Comments Diabetes Encounter Details Date Type Department Care Team (Late st Contact Info) Description 11/16/2014 10:30 AM EDT Office Visit [place] [address] Alissa Malave APRN [facility] [address] [place] [address] Type II or unspecified type diabetes mellitus without mention of complication, uncontrolled Discharge Disposition: Home Social History Tobacco Use Types Packs/Day Years Used Date Smoking Tobacco: Never Smokeless Tobacco: Never Sex and Gender Information Value Date Recorded Sex Assigned at Not on file Gender Identity Not on file Sexual Orientation Not on file documented as of this encounter Last Filed Vital Signs Vital Sign Reading Time Taken Comments Blood Pressure 160/82 11/16/2014 11:16 AM EDT Pulse 84 11/16/2014 11:16 AM EDT Temperature - - Respiratory Rate - - Oxygen Saturation - - Inhaled Oxygen Concentration - - Weight 83.9 kg (185 lb) 11/16/2014 11:16 AM EDT Height - - Body Mass Index 34.66 12/24/2012 1:12 PM EDT documented in this encounter Patient Instructions * Patient Instructions* Alissa Malave APRN - 11/16/2014 11:52 AM EDT Please bring meter to appointments documented in this encounter Progress Notes * Alissa Malave APRN - 11/16/2014 12:03 PM EDT OFFICE VISIT NOTE DATE OF VISIT: 11/16/2014 REASON FOR VISIT: Followup type 2 DM, now in poor control. Also hypertension, close to goal; hyperlipidemia, close to goal; and overweight. BRIEF HISTORY: Presents and states glucose levels are usually okay. DIABETES REGIMEN: Humalog mix KwikPen 75/25 at 60 units a.m. and 40 units p.m. 24-HOUR MEAL PLAN: Breakfast varies, either oatmeal or an Macedonian muffin with fruit. Lunch is a tuna fish sandwich. Afternoon snack is a fruit. Evening meal corned beef and cabbage. PHYSICAL ACTIVITY: Swims two to three times a week and walks. 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 REVIEW OF SYSTEMS: Depression and mood: Overall is doing well. Eyes: No recent vision changes. No recent headaches or chest pain or shortness of breath. No recent GI symptoms. Appetite is good. Sleep pattern: Varies depending on if she is working or not. Extremities: Has some joint pains. PHYSICAL EXAM: Appearance: She appears strong. She is overweight 185 pounds. Eyes: No retinopathy with green light exam. Neck: No thyromegaly or lymphadenopathy. Heart: Regular rate and rhythm. No murmurs. Lungs are clear to auscultation. Feet: Skin is normal. Pulses are normal. Neuro: Normal sensation to 10 g of pressure. Blood pressure 160/82 and weight 185 pounds. Goes to the dentist three times a year. Hemoglobin A1c 9.0%. IMPRESSION AND PLAN: Diabetes mellitus type 2 in poor control. Previous hemoglobin A1c was 8.0%. Will add Farxiga 5 mg in a.m. to her regimen. Also, discussed GLP1 but she does not want another injection. Gave the patient a copy of her lab results and reviewed them with her. Return to office in February. Will check hemoglobin A1c, DLDL, and creatinine. This was a 34-minute office visit with 33 minute spent counseling face to face with the patient in the management of glucose levels, reviewing hemoglobin A1c target closer to 7.5% without increasing risks of hypoglycemia, which she states she has not had and adding dapagliflozin to her regimen. Recent Results (from the past 72 hour(s)) HEMOGLOBIN A1C Result Value Ref Range Hemoglobin A1C 9.0 (*) 4.3 - 5.6 % Est Avg Gluc See note MICROALBUMIN, URINE, RANDOM Result Value Ref Range U Creatinine 147 U Ran Malb Conc 16.3 U Ran Malb Calc 11 documented in this encounter Plan of Treatment Not on file documented as of this encounter Procedures Procedure Name Priority Date/Time Associated Diagnosis Comments U ALBUMIN/CRE RATIO Routine 11/16/2014 1 0:52 AM EDT Type II or unspecified type diabetes mellitus without mention of complication, uncontrolled HEMOGLOBIN A1C Routine 11/16/2014 10:52 AM EDT Type II or unspecified type diabetes mellitus without mention of complication, uncontrolled documented in this encounter Results * (ABNORMAL) LDL Cholesterol, Direct (06/22/2015 2:33 PM EDT) LDL Chol Direct 174(H) <=99 mg/dL [facility] Comment: The National Cholesterol Education Program (NCEP) has set the following guidelines for LDL Cholesterol: Reference range: ?? Optimal: ?<100 mg/dL ?? Near Optimal/Above Optimal: ?? 100-129 mg/dL ?? Borderline high: ?130-159 mg/dL ?? High: ? 160-189 mg/dL ?? Very high: ?>bq=930 mg/dL RAMONA 2001: 285(19):1078-5160 Blood specimen (specimen) 06/22/2015 2:33 PM EDT 06/22/2015 3:05 PM EDT Narrative Resulting Agency Comment Spec In Lab Vahid Philip MD CHEMISTRY ORDERABLES [facility] * (ABNORMAL) Hemoglobin A1c (06/22/2015 2:33 PM EDT) Hemoglobin A1C 10.2(H) 4.3 - 5.6 % [facility] Comment: Reference Range: 4.3 - 5.6% 5.7 - 6.4% - Increased Risk of Developing Diabetes Mellitus 6.5% - Consistent with diagnosis of Diabetes Mellitus In the absence of hyperglycemia (i.e. plasma glucose > 200 mg/dL) or classic symptoms of hyperglycemia a repeat measurement of HbA1c should be performed on a separate sample to confirm the diagnosis. Diagnosis and Classification of Diabetes Mellitus, Diabetes Care 2013; 36: Suppl. 1, S67-57 Est Avg Gluc See note mg/dL [facility] Comment: Estimated Average Glucose not appropriate for [...] resources are available on the ADA website: http://tinyurl.com/[facility]ER[facility]alc Dago MOE, Stella J, Hernandez R, et al. ??Translating the A1C assay into estimated average glucose values. ??Diabetes Care 2008:31(8):7701-6950. Blood specimen (specimen) 06/22/2015 2:33 PM EDT 06/22/2015 3:05 PM EDT Narrative Resulting Agency Comment Spec In Lab Vahid Philip MD CHEMISTRY ORDERABLES Performing Organization Address [facility] de Phone Number [facility] VANESSAIUM * Creatinine (06/22/2015 2:33 PM EDT) Creatinine 0.74 0.70 - 1.20 mg/dL [facility] Comment: Please note that the pediatric reference intervals supplied above were not validated at [facility]. Results from pediatric patients should be interpreted in conjunction to the patient's age, height and muscle mass. Estimated GFR >60 >=60 [facility] MILLENNI[facility] Comment: This estimated GFR (eGFR) value was calculated using the MDRD equation which has been validated on patients between the ages of 18 and 70. The MDRD should not be used to assess kidney function in patients < 18 years of age or in patients with extremes of body mass, or in patients with acute kidney failure. This value should be multiplied by 1.2 for patients. For further information please copy and paste the following links into your internet browser. http://Riskthinktank/DHnkdep http://Riskthinktank/DHMCnkf Blood specimen (specimen) 06/22/2015 2:33 PM EDT 06/22/2015 3:05 PM EDT Narrative Resulting Agency Comment Spec In Lab Vahid Philip MD CHEMISTRY ORDERABLES Performing Organization Address [facility] de Phone Number YOUSIF KEVIN * Microalbumin, urine, random (11/16/2014 10:52 AM EDT) U Creatinine 147 mg/dL [facility] MILLENNIUM U Albumin Conc, Random 16.3 mg/L [facility]ERN[facility] MILLENNIUM Alb/Cr Ratio, Random 11 mcg/mg Cr [facility] Comment: Reference Range* Random collection (mcg/mg creatinine) Normal ?<30 Microalbuminuria ?? 30 - 300 Clinical Albuminuria ?? >300 *[place] [employer]. Diabetic Nephropathy. Diabetes Care 1997;(Suppl 1):S24-S27 Exercise within 24 hour, infection, fever, CHF, marked hyperglycemia, and marked hypertension may elevate urinary albumin excretion over baseline values. Urine specimen (specimen) 11/16/2014 10:52 AM EDT 11/16/2014 11:12 AM EDT Narrative Resulting Agency Comment Spec In Lab Vahid Philip MD URINE ORDERABLES [facility] * (ABNORMAL) Hemoglobin A1c (11/16/2014 10:52 AM EDT) Hemoglobin A1C 9.0(H) 4.3 - 5.6 % [facility] Comment: Reference Range: 4.3 - 5.6% 5.7 [...] Mellitus, Diabetes Care 2013; 36: Suppl. 1, S67-38 Est Avg Gluc See note mg/dL [facility] Comment: Estimated Average Glucose not appropriate for [...] resources are available on the ADA website: http://eFlix.[employer]/DHMCadacalc Dago MOE, Stella J, Hernandez R, et al. ??Translating the A1C assay into estimated average glucose values. ??Diabetes Care 2008:31(8):3130-1741. Blood specimen (specimen) 11/16/2014 10:52 AM EDT 11/16/2014 11:11 AM EDT Narrative Resulting Agency Comment Spec In Lab Vahid Philip MD CHEMISTRY ORDERABLES Performing Organization Address City/State/[facility] [place] Phone Number [facility] documented in this encounter Visit Diagnoses Diagnosis Type II or unspecified type diabetes mellitus without mention of complication, uncontrolled documented in this encounter Care Teams Pit Laborer Relationship Specialty Start Date End Date Hannah Gagnon MD [address] [place] [address] PCP - General 08/08/11 11/07/18 documented as of this encounter
--- OUTSIDE RECORDS SUMMARY | 2024-03-17 14:29 | XMS_ITS | Encounter Summary ---
[place] [address] Care Team Providers Care Wax Engraver Name Role Phone Hannah Gagnon MD Primary Care Provider [phone] Reason for Visit * Reason Onset Date Comments Medication Refill 10/03/2016 Encounter Details Date Type Department Care Team (Late st Contact Info) Description 10/03/2016 Refill [place] [address] Reyna Lloyd, RN Social History Tobacco Use Types Packs/Day [...] on filedocumented in this encounter Care Teams Wax Engraver Relationship Specialty Start Date End Date Hannah Gagnon MD [address] [place] [address] PCP - General 08/08/11 11/07/18 documented as of this encounter
--- OUTSIDE RECORDS SUMMARY | 2024-03-17 14:29 | XMS_ITS | Encounter Summary ---
Author Organization [facility] [place] [address] Care Team Providers Care Mustanger Name Role Phone Reshma Baig MD Primary Care Provider [phone] Encounter Details Date Type Department Care Team (Late st Contact Info) Description 04/18/2020 Ancillary Procedure [facility] [place] [address] Magdalene Lopez MD [facility] [place] [address] Social History Tobacco Use Types Packs/Day Years [...] Diagnosis Comments FILM LIBRARY STORAGE ONLY CT ABDOMEN AND PELVIS Routine 04/18/2020 12:00 AM EDT documented in this encounter Results * Film Library- Storage Only CT Abdomen & Pelvis (04/18/2020 12:00 AM EDT) Narrative [facility] - 04/19/2020 8:57 AM EDT This exam is auto-finalizing. It's purpose is for storage only. Magdalene Lopez MD IMG FILM LIBRARY ORD ERABLES [facility] [place], [place] documented in this encounter Visit Diagnoses Not on filedocumented in this encounter Care Teams Mustanger Relationship Specialty Start Date End Date Reshma Baig MD [address] [place] [address] PCP - General Family Medicine 11/08/18 06/23/21 documented as of this encounter
--- OUTSIDE RECORDS SUMMARY | 2024-03-17 14:29 | XMS_ITS | Encounter Summary ---
Author Organization [facility] [place] [address] Care Team Providers Care Sustainability Communicator Name Role Phone Regis Muller MD Primary Care Provider [phone] Reason for Visit * Reason Comments Medication Refill Encounter Details Date Type Department Care Team (Late st Contact Info) Description 05/07/2015 Ref[place] [address] [facility] [place] [address] Social History Tobacco Use Types Packs/Day Years [...] documented as of this encounter Care Teams Sustainability Communicator Relationship Specialty Start Date End Date Regis Muller MD [address] [place] [address] PCP - General Emergency Medicine 06/24/21 documented as of this encounter
--- OUTSIDE RECORDS SUMMARY | 2024-03-17 14:29 | XMS_ITS | Encounter Summary ---
Author Organization [facility] Address [facility] [place] [address] Care Team Providers Care Erosion Control Coordinator Name Role Phone Reshma Baig MD Primary Care Provider [phone] Reason for Visit * Auth/Cert Specialty Diagnoses / Procedures Referred By Malini carlson Referred To Contact Diagnoses Cholecystitis Cholecystitis Procedures EMERGENCY IPI Referral ID Status Reason Start Date Expiration Date Visits Re quested Visits Authorized [id number] 1 1 Encounter Details Date Type Department Care Team (Late st Contact Info) Description 04/21/2020 10:04 AM EDT - 04/21/2020 11:04 AM EDT Surgery [place] [address] Esau Rahman MD [facility] [place] [address] CARDIAC CATHETERIZATION Social History Tobacco Use Types [...] Sign Reading Time Taken Comments Blood Pressure 114/41 04/21/2020 8:00 AM EDT Pulse 70 04/21/2020 8:00 AM EDT Temperature 36.4 ??C (97.5 ??F) 04/21/2020 6:00 AM ED T Respiratory Rate 18 04/21/2020 8:00 AM EDT Oxygen Saturation 96% 04/21/2020 8:00 AM EDT Inhaled Oxygen Concentration - - Weight 85.2 kg (187 lb 13.3 oz) 04/21/2020 6:00 AM EDT Height 152.4 cm (5') 04/19/2020 6:06 PM EDT Body Mass Index 35.99 04/19/2020 6:06 PM EDT documented in this encounter Discharge Summaries * Davon Leung MD - 05/08/2020 10:38 AM EDT Images from the original note were not included. Discharge Summary Patient Name: Shannan Chaudhary Patient Age: 79 y.o. Language: Sudanese Race: White Ethnicity: Not nor Admit date: [...] in the setting of melena and esophagitis, [id number] (11% risk) - Amiodarone 200mg BID for a total of 1 month (from 04/22 to 05/22); close cardiology follow-up scheduled for 05/18 - GI: EGD completed; recommending colonoscopy as outpatient Inpatient Provider Contact Information: For questions regarding this document or issues relating to this hospitalization on the Medical Service, please contact your inpatient physician through the [facility] Stripping And Booking Machine Operator . Issues afterhours and on weekends will [...] with valve area 0.8 (records unavailable in [facility] but reviewed by [facility] referring MD) who is admitted in [...] the subsequent days and she presented to [facility] ED yesterday (Sunday). There her tBili was noted to be 2.2 and is stable at 2.1 here. Patient transferred from [facility] on 04/19 for cardiac preop eval [...] Dr. Patel, patient was taken to the laborer tin can for RHC and evaluation. ?? In the laborer tin can she was found to have two vessel [...] cardiology follow-up scheduled with Dr. Galindo in [facility] on May 18 at 1pm. Will need discharge summary faxed to the clinic at [phone]. #Esophagitis #Melena #Acute Blood loss anemia Ms. [...] unchanged Dose Details blood sugar diagnostic strips Str Commonly known as: OneTouch Ultra Test 1 each by Other route 3 times daily (before meals). Diag code E10.65 1 each Quantity: 300 each Refills: 3 Blood-Glucose Meter [facility] One Touch Ultra Brand, 250.02. Quantity: 1 [...] each Quantity: 400 each Refills: 3 lancets [facility] Use twice daily or as needed. Quantity: [...] Time Provider Department Center 05/19/2020 10:30 AM [facility] IR ROOM 3 [facility] Rad 06/03/2020 10:10 AM [facility] ROOM 4 [facility] Rad 06/03/2020 2:00 PM Hong Rosenthal MD [facility] SURG [facility] You have a follow-up with cardiology scheduled for May [address] Galindo in [facility]. Your Primary Care Provider: Reshma Baig MD [phone] For questions regarding this document or issues relating to this hospitalization on the Medical Service, please contact your inpatient physician through the [facility] Stripping And Booking Machine Operator . Issues afterhours and on weekends will [...] or any other surface. Always put a shared services manager on the end to keep clean. 11. If you drainage bags starts to have an odor, you can clean the bag after removing it from the tube. Turn the stopcock to off. Put on a shared services manager to the end of the stopcock to [...] is during regular office hours, please call [phone]. If it is after regular office hours, or on weekends or holidays, please call [phone] and ask to speak to the Braiding Machine Tender warehouse person for Interventional Radiology. XX You have received [...] is during regular office hours, please call [phone]. If it is after regular office hours, or on weekends or holidays, please call [phone] and ask to speak to the Braiding Machine Tender warehouse person for Interventional Radiology. XX You have received [...] Provider Department Dept Phone 06/03/2020 10:10 AM [facility] IR ROOM 4 Radiology at [facility] Arrive at: 3Z INTERVENTIONAL RADIOLOGY [phone] Please expect a call from a radiology nurse within 3 days of your exam, you will need to follow theinstructions given at that time. 06/03/2020 2:00 PM Hong Rosenthal MD General Surgery at [facility] Arrive at: Industrial Cafeteria Manager Area 4L [phone] 06/18/2020 3:00 PM Esau Rahman MD Cardiology at [facility] Arrive at: Industrial Cafeteria Manager Area 4A [phone] Future Orders Complete By Expires IR Drain Check/Change/Remove [[id number] Custom] 05/19/2020 07/28/2020 Process Instructions: Scheduling Instructions: Comments: Questions: Where will study be performed?: [facility] Radiology Reason for exam and clinical [...] ?: Aspirin Clopidogrel Referral to Cardiac Rehab [[id number] Custom] As directed Process Instructions: If no progress note charted, please enter Clinical details in comments. Scheduling Instructions: Questions: My question or request is: NSTEMI. Cardiac rehab at [facility] Referral to General Surgery [[id number] Custom] As directed Process Instructions: If no progress note charted, please enter Clinical details in comments. If you are requesting vascular access please answer the VAD questions Due to the OR limitations at the [facility], if you are considering surgery for this patient, and their BMI is greater than 50, please refer to [facility] (or a division other than [facility]). Scheduling Instructions: Questions: Are you seeking Vascular Access?: No My question or request is: Follow-up to discuss cholecystectomy. Patient is s/p perc arron tube placement, has tube study scheduled with IR for 06/03, needs appointment on this day. Referral to Home Health - at DISCHARGE [[id number] CPT(R)] As directed Process Instructions: Scheduling Instructions: [...] Nurse Practitioner, Clinical Nurse Specialist or Physician Claims Adjudicator who is working directly with them, had [...] appropriate for home health services. Patient Location: [address] [place] [address] (home) Telephone Information: HOME Health Agency: [facility] PHONE: [phone] FAX: [phone] RN: Assess cardiopulmonary assessment, vital signs, medication [...] patient's PCP: Reshma Baig MD [address] [place] [phone] Questions: Agency name and contact information: [facility] Patient location post discharge: home What services [...] or any other surface. Always put a shared services manager on the end to keep clean. 11. If you drainage bags starts to have an odor, you can clean the bag after removing it from the tube. Turn the stopcock to off. Put on a shared services manager to the end of the stopcock to [...] is during regular office hours, please call [phone]. If it is after regular office hours, or on weekends or holidays, please call [phone] and ask to speak to the Braiding Machine Tender warehouse person for Interventional Radiology. XX You have received [...] is during regular office hours, please call [phone]. If it is after regular office hours, or on weekends or holidays, please call [phone] and ask to speak to the Braiding Machine Tender warehouse person for Interventional Radiology. XX You have received [...] Time Provider Department Center 05/19/2020 10:30 AM [facility] IR ROOM 3 IR [facility] Rad 06/03/2020 10:10 AM [facility] IR ROOM 4 [facility] Rad 06/03/2020 2:00 PM Hong Rosenthal MD [facility] SURG [facility] You have a follow-up with cardiology scheduled for May [address] Galindo in [facility]. Your Primary Care Provider: Reshma Baig MD [phone] For questions regarding this document or issues relating to this hospitalization on the Medical Service, please contact your inpatient physician through the [facility] Stripping And Booking Machine Operator . Issues afterhours and on weekends will [...] spent >30 minutes (Day of Discharge Code 03377) involved in the final examination of the [...] main entrance with her son to home. [facility] planned for home care. Patient educated on [...] drain care. Questions answered. Medications sent to [facility] in [facility]. * Davon Leung MD - 05/08/2020 7:56 AM EDT [facility] Medicine - Red Team Inpatient [...] Collection; Culture 04/28 Body Fluid Culture, Aerobic [[id number]] (Abnormal) Collected: 04/28/20 1000 Lab Status: Preliminary [...] Routine Diet: Daily Healthy Menu Choices/Cardiac diet ([facility]-Diet) CHO cont DVT ppx: SCDs Fluids: PO Access: PIV Dispo: Home today; with VNA Code: Full Code Davon Leung MD 05/08/2020 PGY-2, Internal Medicine Red Team - Pager [phone] Associated attestation - Kota Gonzales MD - [...] (records unavailable in [facility] but reviewed by [facility] referring MD) who was admitted in [...] w/ severe (valve area 0.8) transferred to [facility] with acute cholecystitis. Unable to performcholecystectomy 2/2 [...] General surgery will sign off. Please page [phone] with any questions or concerns. Jeevan Black MD General Surgery 05/07/2020 * Wilner Esparza MD - 05/07/2020 10:16 AM EDT [facility] Medicine - Red Team Inpatient [...] Collection; Culture 04/28 Body Fluid Culture, Aerobic [[id number]] (Abnormal) Collected: 04/28/20 1000 Lab Status: Preliminary [...] remains in normal sinus on metoprolol and [id number] BID (end 05/22). AC plan to DAPT [...] Routine Diet: Daily Healthy Menu Choices/Cardiac diet ([facility]-Diet) CHO cont DVT ppx: SCDs Fluids: PO Access: PIV Dispo: pending Code: Full Code Wilner Esparza MD 05/07/2020 PGY-1, Internal Medicine Red Team - Pager [phone] Associated attestation - Milagros Velazquez MD - [...] of two midnights or is on the [facility] inpatient only procedure list (status C) [...] Esparza MD - 05/06/2020 7:48 AM EDT [facility] Medicine - Red Team Inpatient [...] Collection; Culture 04/28 Body Fluid Culture, Aerobic [[id number]] (Abnormal) Collected: 04/28/20 1000 Lab Status: Preliminary [...] bleeding, including the SIS drain. Will contact case management rn during IDR regarding assistance for paying bills [...] Routine Diet: Daily Healthy Menu Choices/Cardiac diet ([facility]-Diet) CHO cont DVT ppx: SCDs Fluids: PO Access: PIV Dispo: pending Code: Full Code Wilner Esparza MD 05/06/2020 PGY-1, Internal Medicine Red Team - Pager [phone] Associated attestation - Milagros Velazquez MD - [...] of two midnights or is on the [facility] inpatient only procedure list (status C) [...] 05/05/2020 3:13 PM EDT email sent to Radha today : Pt Shannan Chaudhary has BSBC [...] (records unavailable in [facility] but reviewed by [facility] referring MD) who was admitted in [...] w/ severe (valve area 0.8) transferred to [facility] with acute cholecystitis. Unable to performcholecystectomy 2/2 [...] Esparza MD - 05/05/2020 8:51 AM EDT [facility] Medicine - Red Team Inpatient [...] Collection; Culture 04/28 Body Fluid Culture, Aerobic [[id number]] (Abnormal) Collected: 04/28/20 1000 Lab Status: Preliminary [...] cholecystitis, s/p perq cholecystostomy (04/22) Liver s/p SSI 04/28 - Culture klebsiella Gallbladder s/p perq [...] Routine Diet: Daily Healthy Menu Choices/Cardiac diet ([facility]-Diet) CHO cont DVT ppx: SCDs Fluids: PO Access: PIV Dispo: pending Code: Full Code Wilner Esparza MD 05/05/2020 PGY-1, Internal Medicine Red Team - Pager [phone] * Brooke Walters RN - 05/04/2020 1:03 [...] she is independent and active. 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 Is driving and able to walk good distances.? Patient is insured through: Primary Insurance: [employer] [place] Payor: [employer] [place] / Plan[place] / Product Type: *No Product type* / Secondary Insurance: N/A Prescription Coverage: yes ?? Plan for discharge is: Services Anticipated at Discharge: home health care - orders routed/pended with: ?? [facility] ?? PHONE: [phone] FAX: [phone] ?? Barriers to discharge: no barriers for a safe/appropriate discharge that are identified at this time. ?? Plan going forward: CM will continue to follow and assist with discharge planning and coordination of care as indicated. ?? * Wilner Esparza MD - 05/04/2020 8:48 AM EDT [facility] Medicine - Red Team Inpatient [...] Collection; Culture 04/28 Body Fluid Culture, Aerobic [[id number]] (Abnormal) Collected: 04/28/20 1000 Lab Status: Preliminary [...] Routine Diet: Daily Healthy Menu Choices/Cardiac diet ([facility]-Diet) CHO cont DVT ppx: SCDs Fluids: PO Access: PIV Dispo: pending Code: Full Code Wilner Esparza MD 05/04/2020 PGY-1, Internal Medicine Red Team - Pager [phone] Associated attestation - Milagros Velazquez MD - [...] of two midnights or is on the [facility] inpatient only procedure list (status C) [...] (records unavailable in [facility] but reviewed by [facility] referring MD) who was admitted in [...] w/ severe (valve area 0.8) transferred to [facility] with acute cholecystitis. Unable to performcholecystectomy 2/2 [...] (records unavailable in [facility] but reviewed by [facility] referring MD) who was admitted in [...] w/ severe (valve area 0.8) transferred to [facility] with acute cholecystitis. Unable to performcholecystectomy 2/2 [...] Esparza MD - 05/03/2020 9:41 AM EDT [facility] Medicine - Red Team Inpatient [...] or pain Labs: Recent Labs 05/03/20 0508 05/02/207 05/02/20 [...] Collection; Culture 04/28 Body Fluid Culture, Aerobic [[id number]] (Abnormal) Collected: 04/28/20 1000 Lab Status: Preliminary [...] Routine Diet: Daily Healthy Menu Choices/Cardiac diet ([facility]-Diet) CHO cont DVT prophylaxis: apixaban, ASA, plavix Fluids: PO Access: PIV Dispo: pending Code: Full Code Wilner Esparza MD 05/03/2020 PGY-1, Internal Medicine Red Team - Pager [phone] Associated attestation - Milagros Velazquez MD - [...] of two midnights or is on the [facility] inpatient only procedure list (status C) [...] Esparza MD - 05/02/2020 11:15 AM EDT [facility] Medicine - Red Team Inpatient [...] Collection; Culture 04/28 Body Fluid Culture, Aerobic [[id number]] (Abnormal) Collected: 04/28/20 1000 Lab Status: Preliminary [...] Routine Diet: Daily Healthy Menu Choices/Cardiac diet ([facility]-Diet) CHO cont DVT prophylaxis: apixaban, ASA, plavix Fluids: PO Access: PIV Dispo: pending Code: Full Code Wilner Esparza MD 05/02/2020 PGY-1, Internal Medicine Red Team - Pager [phone] Associated attestation - Milagros Velazquez MD - [...] of two midnights or is on the [facility] inpatient only procedure list (status C) [...] (records unavailable in [facility] but reviewed by [facility] referring MD) who was admitted in [...] w/ severe (valve area 0.8) transferred to [facility] with acute cholecystitis. Unable to performcholecystectomy 2/2 [...] weeks. Please do not hesitate to page [phone] with any questions or concerns. Jeevan Black [...] Orders Diet Daily Healthy Menu Choices/Cardiac diet ([facility]-Diet) 60/60/75 CHO counting level 2 Frequency: Effective [...] consulted in the interim. SULEMAN Lopes Pager: [phone] * Davon Leung MD - 05/01/2020 8:21 AM EDT [facility] Medicine - Red Team Inpatient Progress Note ID: Shannan Chaudhayr is a 79 y.o. year old female [...] on metoprolol and amiodarone - Lasix and [place] held since 9/2 for FORREST - No active complaints at [...] Collection; Culture 04/28 Body Fluid Culture, Aerobic [[id number]] (Abnormal) Collected: 04/28/20 1000 Lab Status: Preliminary [...] though still overall mild, appears pre-renal even [id number] LR yesterday. Will give 500cc gently today. [...] her on Plavix and apixaban. Will contact [facility] moving forward with with this [...] Routine Diet: Daily Healthy Menu Choices/Cardiac diet ([facility]-Diet) CHO cont DVT prophylaxis: apixaban, ASA, plavix Fluids: PO Access: PIV Dispo: pending Code: Full Code Davon Leung MD 05/01/2020 PGY-2, Internal Medicine Red Team - Pager [phone] Associated attestation - Milagros Velazquez MD - [...] of two midnights or is on the [facility] inpatient only procedure list (status C) [...] monitoring]: Purposeful rounding, room near nurses station[facility]. Patient-specific fall prevention interventions for sensory [...] Avila, DO Infectious Diseases Fellow- PGY4 Pager: [phone] 04/30/2020 1:37 PM Associated attestation - Harris [...] Discharge: None Electronically signed: Hong Zavala RN, Print Press Operator Pgr: [phone] 04/30/2020 10:23 AM * Wilner Esparza MD - 04/30/2020 8:08 AM EDT [facility] Medicine - Red Team Inpatient [...] 8.7 MAGNESIUM 0.94 0.83 0.78 Recent Labs 04/30/2063504/29/20 0417 04/28/20 0405 AST 14 15 12 [...] though still overall mild, appears pre-renal even [id number] LR yesterday. Will give 500cc gently today. [...] her on Plavix and apixaban. Will contact [facility] moving forward with with this [...] Routine Diet: Daily Healthy Menu Choices/Cardiac diet ([facility]-Diet) CHO cont DVT prophylaxis: apixaban Fluids: PO Access: PIV Dispo: pending Code: Full Code Wilner Esparza MD 04/30/2020 PGY-1, Internal Medicine Red Team - Pager [phone] Associated attestation - Dale Gonzáles MD - [...] of two midnights or is on the [facility] inpatient only procedure list (status C) [...] (records unavailable in [facility] but reviewed [facility] referring MD) who was admitted in [...] w/ severe (valve area 0.8) transferred to [facility] with acute cholecystitis. Unable to performcholecystectomy 2/2 [...] (records unavailable in [facility] but reviewed by [facility] referring MD) who was admitted in [...] ml Net -454 ml Labs: Recent Labs 04/29/20 04104/28/20 0405 04/27/20 0441 WBC 18.0* 14.8* 15.1* [...] w/ severe (valve area 0.8) transferred to [facility] with acute cholecystitis. Unable to performcholecystectomy 2/2 [...] Esparza MD - 04/29/2020 8:21 AM EDT [facility] - Red Team Inpatient Progress Note [...] or pain Labs: Recent Labs 04/29/2041604/28/205 04/27/20 0441 WBC [...] her on Plavix and apixaban. Will contact [facility] moving forward with with this [...] Routine Diet: Daily Healthy Menu Choices/Cardiac diet ([facility]-Diet) CHO cont DVT prophylaxis: apixaban Fluids: PO Access: PIV Dispo: transfer to 4600 Code: Full Code Wilner Esparza MD 04/29/2020 PGY-1, Internal Medicine Red Team - Pager [phone] Associated attestation - Dale Gonzáles MD - [...] of two midnights or is on the [facility] inpatient only procedure list (status C) [...] she is independent and active. 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 Is driving and able to walk good distances. Patient is insured through: Primary Insurance: [employer] [place] [employer] [place] / Plan: [facility] [place] / Product Type: *No Product type* / Secondary Insurance: N/A Prescription Coverage: yes Plan for discharge is: Services Anticipated at Discharge: home health care - orders routed/pended [facility]. PHONE: [phone] FAX: [phone] Barriers to discharge: as listed above Plan going forward: CM will continue to follow and assist with discharge planning and coordination of care as indicated. Chioma Vann RN, MSN Print Press Operator - Cardiology Office of Care Management Pager: [phone] Work * Bobbi Fernandez RN - 04/28/2020 8:28 AM EDT [facility] Name: SHANNAN CHAUDHARY Date of : 1940 AGE: 79 y.o. Address: [address] [place] [address] (home) Mobile: Telephone Information: Referring Provider: Bethany [...] (records unavailable in [facility] but reviewed by [facility] referring MD) who was admitted in [...] -1125 ml Labs: Recent Labs 04/28/20 0405 04/27/20 0441 04/26/20 044 WBC 14.8* 15.1* 13.9* HGB 10.5* 10.3* 10.0* HCT 32.5* 32.1* 31.5* PLATELET 421* 422* 398* Recent Labs 04/28/20 0405 04/27/20 0441 04/26/20 044 NA 137 138 142 K 3.5 3.5 3.3* CL 105 103 107 CO2 21* 23 22 BUN 16 12 14 CREATININE 0.80 0.63* 0.67* GLUCOSE 149 167 172 No results for input(s): PT, INR in the last 72 hours. Invalid input(s): PTT Assessment/Plan: 79y F w/ severe (valve area 0.8) transferred to [facility] with acute cholecystitis. Unable to performcholecystectomy 2/2 [...] AF who presented as a [facility] for acute cholecystitis with a course [...] Internal Medicine PGY1 Cardiology M1-S2 Team Pager [phone] Associated attestation - Abiodun Chun MD - [...] who is concerned about showering at home. [facility] has been pended for RN only. The orders have been signed, so I am unable to adjust them. I have asked Dr Ruma garcia who signed them to add choly tube care and OT to assess home safety, ADL's, IADL's and include SECOND WORKER if appropriate. Will be transported via private car with family. Patient is insured through [employer] however states she has Medicare A secondary-Due [...] (records unavailable in [facility] but reviewed by [facility] referring MD) who was admitted in [...] ml Net 640 ml Labs: Recent Labs 04/27/2044004/26/20 04404/25/20 0505 WBC 15.1* 13.9* 14.1* HGB [...] w/ severe (valve area 0.8) transferred to [facility] with acute cholecystitis. Unable to performcholecystectomy 2/2 recent PCI with two stents requiring DAPT x 6 weeks. Now s/p cholecystostomy tube and appears to be recovering well. She is tolerating a regular diet and denies pain in the RUQ or anywhere else. Her WBC has increased today to 15. Recommending CT abdomen and pelvis with contrast.We will continue to follow. Please page [phone] with any questions or concerns. Jeevan Black [...] Orders Diet Daily Healthy Menu Choices/Cardiac diet ([facility]-Diet) Frequency: Effective Now Number of Occurrences: Until [...] consulted in the interim. SULEMAN Lopes Pager: [phone] * Julianna Hendrix MD - 04/27/2020 7:41 [...] AF who presented as a transfer [facility] for acute cholecystitis with a course [...] Misc Diet: Daily Healthy Menu Choices/Cardiac diet ([facility]-Diet) DVT ppx: SQH GI ppx: Protonix PT/OT consult ?? Code Status:Attempt Cardiopulmonary Resuscitation - Inpatient ?? Dispo- floor Julianna Hendrix MD Internal Medicine PGY1 Cardiology M1-S2 Team Pager [phone] Associated attestation - Abiodun Chun MD - [...] (records unavailable in eDH but reviewed by [facility] referring MD) who was admitted in [...] w/ severe (valve area 0.8) transferred to [facility] with acute cholecystitis. Unable to performcholecystectomy 2/2 [...] We will continue to follow. Please page [phone] with any questions or concerns. Jeevan Black [...] for discharge to home with [facility] services. [facility]ly [facility]. PHONE: [phone] FAX: [phone] Will be transported via [employer]. This plan was formulated with input from patient, family and team. All are in agreement with plan. Chioma Vann RN, MSN Print Press Operator - Cardiology Office of Care Management Pager: [phone] Work * Julianna Hendrix MD - 04/26/2020 [...] AF who presented as a transfer from [facility] for acute cholecystitis with a course [...] Misc Diet: Daily Healthy Menu Choices/Cardiac diet ([facility]-Diet) DVT ppx: SQH GI ppx: Protonix PT/OT consult ?? Code Status:Attempt Cardiopulmonary Resuscitation - Inpatient ?? Dispo- floor Julianna Hendrix MD Internal Medicine PGY1 Cardiology M1-S2 Team Pager [phone] Associated attestation - Abiodun Chun MD - [...] (records unavailable in eDH but reviewed by [facility] referring MD) who was admitted in [...] w/ severe (valve area 0.8) transferred to [facility] with acute cholecystitis. Unable to performcholecystectomy 2/2 [...] of AF who presented??as a transfer from [facility] for acute cholecystitis with a course [...] Cholecystostomy Tube Placement 04/22/2020 Jos Collins, DO [facility] INTERVENTIONL RAD Social History: Home set-up: lives alone in a 3 story home but is able to stay on the 1st floor, laundry is in the basement but granddaughter can help. 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 Equipment at home: quad walker, and cane. 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 Pt limited this date by [...] Minutes, Physical Therapy: 29(evaluation ) Isi Kingston, [facility] Pager: [phone] Physical Therapy Inpatient Rehabilitation Department Associated attestation - Esau Caicedo PT - 04/25/2020 2:42 PM EDT Patient status, treatment interventions, and goals discussed with student. I am in agreement with all details and associated flowsheet rows as documented and was present for all aspects of the patient treatment session. Treatment session performed and note written with this inspector automatic typewriter. Please do not hesitate to contact this inspector automatic typewriter with any questions, thank you. Esau Isaac, PT Pager #[phone] Inpatient Rehabilitation * Hong Levi MD - [...] AF who presented as a transfer [facility] for acute cholecystitis with a course [...] 0.96 Recent Labs 04/25/20 0505 04/24/20 0458 04/23/205 04/20/20 0243 AST 15 14 17 < [...] Misc Diet: Daily Healthy Menu Choices/Cardiac diet ([facility]-Diet) DVT ppx: SQH GI ppx: Protonix PT/OT consult ?? Code Status:Attempt Cardiopulmonary Resuscitation - Inpatient ?? Dispo- floor, possible discharge tomorrow Hong Levi MD Internal Medicine PGY3 Cardiology M1-S2 Team Pager [phone] Associated attestation - Abiodun Chun MD - [...] AF who presented as a transfer from [facility] for acute cholecystitis with a course [...] in this interval not displayed. Recent Labs 04/24/2045704/23/2022404/22/2034904/20/20 0243 AST 14 17 19 < > [...] tomorrow Julianna Hendrix MD PGY-1 Team Pager [phone] Associated attestation - Abiodun Chun MD - [...] 04/19/2020 Diet: Daily Healthy Menu Choices/Cardiac diet ([facility]-Diet) Code: Attempt Cardiopulmonary Resuscitation - Inpatient Room: CV21/CV21-A ID: Shannan Chaudhary ( ) is a 79 y.o. female with a history of HTN, HLD, severe and possible afib, who was transferred from [facility] to the SICU for acute cholecystitis. Her course was complicated by NSTEMI, afib with RVR causing hypotension in the setting of , hypoxic respiratory failure with increasing O2 requirements which prompted heart cath and transfer to [facility] care. Operative Procedures: 04/21/2020 Procedure(s): CARDIAC CATHETERIZATION [...] add comments as necessary): abd/pelvis; Sending [facility]; Date of exam 20200418; I believe [...] Surgery -Diet: Daily Healthy Menu Choices/Cardiac diet ([facility]-Diet). /FEN: Keep roque, monitor UOP. K of [...] (records unavailable in eDH but reviewed by [facility] referring MD) who is admitted in [...] w/ severe (valve area 0.8) transferred to [facility] with acute cholecystitis. She has undergonePCI of [...] F with DM and HTN--- txf [facility] with cholecystitis, AF with RVR, hypoxia, and concern for severe . Cath showed not severe, high grade ostial RCA stented, AF converted spontaneously ??? Atrial fibrillation--- paroxysmal ??? Cholecystitis Resolved Hospital Problems No resolved problems to display. Active Hospital Problems Diagnosis ??? 79 yo F with DM and HTN--- txf from [facility] with cholecystitis, AF with RVR, hypoxia, and concern for severe . Cath showed not severe, high grade ostial RCA stented, AF converted spontaneously ??? Atrial fibrillation--- paroxysmal ??? Cholecystitis Resolved Hospital Problems No resolved problems to display. ID: Ms. Chaudhary is a 79F with a PMH of HTN, HLD, DM, possible history of AF who presented as a transfer from [facility] for acute cholecystitis with a course [...] mood and affect Labs: Recent Labs 04/23/20 0225 04/22/20 1405 04/22/20 0350 WBC 10.0* 12.6* 13.5* HGB 8.9* 9.5* 8.6* HCT 27.4* 29.3* 26.8* PLATELET 360* 340 313 Recent Labs 04/23/20 0225 04/22/20 0350 04/21/20 0330 INR 1.3 1.2 1.2 Recent Labs 04/23/20 0225 04/22/20 1745 04/22/20 0350 04/21/20 2200 NA 142 -- 139 138 K 3.3* 3.4* 3.2* 3.6 CL 106 -- 103 102 CO2 24 -- 24 24 BUN 32* -- 34* 31* CREATININE 0.96 -- 1.10 1.00 Recent Labs 04/23/20 0225 04/22/20 0350 04/21/20 0330 04/20/20 0243 AST [...] floor Julianna Hendrix MD PGY-1 Team Pager [phone] Associated attestation - Abiodun Chun MD - [...] (records unavailable in eDH but reviewed by [facility] referring MD) who is admitted in [...] w/ severe (valve area 0.8) transferred to [facility] with acute cholecystitis. She has undergonePCI of [...] and possible afib, who was transferred from [facility] to the SICU for acute cholecystitis. Her course was complicated by NSTEMI, afib with RVR causing hypotension in the setting of , hypoxic respiratory failure with increasing O2 requirements which prompted heart cath and transfer to [facility] care. Operative Procedures: 04/21/2020 Procedure(s): CARDIAC CATHETERIZATION [...] add comments as necessary): abd/pelvis; S[facility]; Date of exam 20200418; I believe [...] to the planned procedure. Hand Hygiene: The rafter cutting machine operator did perform hand hygiene prior to arterial [...] DO - 04/22/2020 8:10 AM EDT Interventional Team Supervisor Note 79 year old female with moderate [...] consult in place. Sandy Camargo DO Interventional Team Supervisor * Darwin Connors MD - 04/22/2020 7:12 AM EDT Inpatient Cardiology Progress Note Hospital Day 3 days Active Hospital Problems Diagnosis ??? 79 yo F with DM and HTN--- txf from [facility] with cholecystitis, AF with RVR, hypoxia, and concern for severe . Cath showed not severe, high grade ostial RCA stented, AF converted spontaneously ??? Atrial fibrillation--- paroxysmal ??? Cholecystitis Resolved Hospital Problems No resolved problems to display. Active Hospital Problems Diagnosis ??? 79 yo F with DM and HTN--- txf from [facility] with cholecystitis, AF with RVR, hypoxia, and concern for severe . Cath showed not severe, high grade ostial RCA stented, AF converted spontaneously ??? Atrial fibrillation--- paroxysmal ??? Cholecystitis Resolved Hospital Problems No resolved problems to display. ID: Ms. Chaudhary is a 79F with a PMH of HTN, HLD, DM, possible history of AF who presented as a transfer [facility] for acute cholecystitis with a course [...] care Julianna Hendrix MD PGY-1 Team Pager [phone] Cardiology Attending Note I have seen and [...] benign appearing right femoral/groin access site. * MadhuJoaomercedes Francis - 04/21/2020 6:05 PM EDT Respiratory Therapy NIV Note NIV Settings: NIV Mode: S/T IPAP (cmH20): 14 EPAP (cmH20): 6 FiO2 (%): (S) 100 %(for laborer tin can procedure) NIV Measurements: Resp: 23 Mve: 24.8 [...] Weaned FiO2 to 35%. Brought pt to laborer chemical processing @ 1530 on NRB. Placed on BiPAP [...] Events: TTE yesterday, decision to go to laborer tin can today with surgical plan pending outcome Assessment, [...] -- No results for input(s): PHART, PO2ART, ICY5OTQ, LACTATEART, BEART in the last 72 hours. [...] -- No results for input(s): PHART, PO2ART, RHB5PVQ, LACTATEART, BEART in the last 72 hours. [...] (records unavailable in eDH but reviewed by [facility] referring MD) who is admitted in [...] w/ severe (valve area 0.8) transferred to [facility] with acute cholecystitis undergoing cardiacwork-up/optimization for potential [...] all questions were answered. [facility] Dr [facility] input/assistance greatly appreciated Hong Rosenthal [...] at bedside from 0220 through transfer to [facility]. Life safety paged for assistance when BP began to decline rapidly. See life safety note for details. Critical care also at beside. Roxy Cordon RN * Sophia Ellington RN - 04/20/2020 6:58 AM EDT Patient transferred from [facility] by [facility]. HR afib 160s, arden running @ 50. CCS at bedside performing bedside echo, around 0600 pt. Self converted into NSR 80- 90s and arden weaned off. * Tiesha Morgan MD - 04/20/2020 5:07 AM EDT Patient with aortic stenosis with valve area 0.8 (no echo result documented) and acute cholecystitis, transferred to [facility] on 04/19 PM. Plan was cardiology pre-op [...] 3999 at bedside for eval. Discussed with research archaeologist, who recommended PO metop tartrate 25 mg [...] 04/19/2020 1:45 PM EDT Patient arrived from [facility] via [facility]. Received report from Rhina. [...] History & Physical - RED Team, Pager [phone] Chief Complaint: liver abscess History of Present Illness: Shannan Chaudhary is a 79 y.o. female with history of IDDM last A1c 8.5(03/2020), HTN, HLD, moderate-severe who presents with cholecystitis. The patient first began to have a feeling of pain in her right upper quadrant on 04/12, and presented to [facility] ED on 04/18 and found to have a TBili of 2.2 and WBC of 17; alk phos 148, AST/ALT unremarkable, Cr 1.37. Pt CTAP from [facility] revealed a hydropic gallbladder with thickening [...] on a nitro drip and transferred to [facility]. 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 Pt previously had been fully [...] on phone: None Gets together: None Attends voodoo service: None Active member of club or [...] Body Fluid Culture, Aerobic & Anaerobic Fluid [[id number]] Collected: 04/28/20 1000 Lab Status: In process Specimen: Fluid Updated: 04/28/20 1124 Body Fluid Culture, Aerobic [[id number]] Collected: 04/28/20 1000 Lab Status: Preliminary result Specimen: Fluid Updated: 04/28/20 1124 Gram Stain -- Few Neutrophils seen No microorganisms seen. Body Fluid Culture, Aerobic & Anaerobic Bile [[id number]] (Abnormal) Collected: 04/22/20 1550 Lab Status: Final result Specimen: Bile Updated: 04/26/20 1544 Body Fluid Culture, Aerobic [[id number]] (Abnormal) (Susceptibility) Collected: 04/22/20 155 Lab Status: [...] using in critically ill patients. Anaerobic Culture [[id number]] Collected: 04/22/20 1550 Lab Status: Final result [...] Routine Diet: Daily Healthy Menu Choices/Cardiac diet ([facility]-Diet) CHO cont DVT prophylaxis: apixaban Fluids: PO Access: PIV Dispo: transfer to 4600 Code: Attempt Cardiopulmonary Resuscitation - Inpatient Wilner Esparza MD PGY-1, Internal Medicine 04/28/2020 Red Team Pager - [phone] Associated attestation - Dale Gonzáles MD - [...] of two midnights or is on the [facility] inpatient only procedure list (status C) [...] is a 79 y.o. female transferred to [facility] for acute cholecystitis and subsequently found to [...] DO [facility] INTERVENTIONL RAD Medications: No current facility-administered [...] file Gets together: Not on file Attends voodoo service: Not on file Active member of [...] procedure) Assessment: 79 y.o. female transferred to [facility] for acute cholecystitis and subsequently found to [...] is a 79 y.o. female transferred to [facility] for acute cholecystitis and subsequently found to [...] DO [facility] INTERVENTION[facility] RAD Medications: No current facility-administered [...] mL 2 ??? blood sugar diagnostic strips (ffk environmentTOUCH ULTRA TEST) Strip 1 each by Other [...] file Gets together: Not on file Attends voodoo service: Not on file Active member of [...] procedure) Assessment: 79 y.o. female transferred to [facility] for acute cholecystitis and subsequently found to [...] is a 79 y.o. female transferred to [facility] for acute cholecystitis and subsequently found to [...] diabetes mellitus without mention of complication, uncontrolled [id number] ??? Hypertension I10 ??? Hyperlipidemia E78.5 ??? [...] Brand, 250.02. 1 each 0 ??? Lancets [facility] Use twice daily or as needed. 200 [...] file Gets together: Not on file Attends voodoo service: Not on file Active member of [...] is a 79 y.o. female transferred to [facility] for acute cholecystitis and subsequently found to [...] PCP: Reshma Baig MD PCP phone #: [phone] ID/Chief Complaint: Ms. Chaudhary is a 79F with a PMH of HTN, HLD, DM, possible history of AF who [facility] with a course complicated by afib with RVR and hypotension now transferring to the Cardiology service due to severe (CORINE 0.8 at OSH) with consideration of direct i ntervention. History of Present Illness: Patient transferred from [facility] on [facility]/19 for cardiac preop eval [...] Dr. Patel, patient was taken to the laborer tin can for RHC and evaluation. In the laborer tin can she was found to have two vessel [...] patient was then transferred back to the [facility]. On conference between the General Surgery attending [...] number below. Electronically signed by: Harris Shepard, [facility] ([phone]), at 04/19/2020 4:27 PM XR Chest One [...] number below. Electronically signed by: Dylan Kinsey, [facility] ([phone]), at 04/21/2020 6:22 AM CXR compared to [...] PLAN: Transfer to Cardiology S1 service, Pager [phone] # NSTEMI, s/p stenting of RCA osteal [...] Rodríguez MD, PGY-1 Cardiology M1-S2, Team Pager [phone] 04/21/2020 Cardiology Attending Note I have seen [...] type 2 DM who was admitted to [facility] due to cholecystitis with plan for cardiology [...] file Gets together: Not on file Attends voodoo service: Not on file Active member of [...] Lopez MD - 04/19/2020 5:24 PM EDT [facility] Acute Care Surgery Admission H&P History of Present Illness: Shannan Chaudhary is a 79 y.o. female with PMH IDDM and reported aorticstenosis with valve area 0.8 (records unavailable in eDH but reviewed by [facility] referring MD) who is admitted in [...] the subsequent days and she presented to [facility] ED yesterday (Sunday). There her tBili [...] file Gets together: Not on file Attends voodoo service: Not on file Active member of [...] OSH with cholecystitis who was transferred to [facility] due to increased cardiac risk associated with [...] last Sunday, was noted on imaging at [facility] to have a hydropic gallbladder withthickening [...] guard placed. Patient had full bath with BOX ESTIMATOR. Left IV dressing changed. Patient went for [...] Review Outcome: Ongoing (Interventions Implemented as Appropriate) 05/05/208 05/05/20 0800 Coping/Psychosocial Plan Of Care Reviewed [...] -- Assistive Device Utilized none -- -- 05/03/205 Daily Care Interventions Self-Care Promotion -- Campos [...] bleeding. Hemogram obtained, hgb 8.7. Patient on MC/carb controlled level 2 diet. IV mag 2g [...] file Gets together: Not on file Attends voodoo service: Not on file Active member of [...] Dr. Graf. Mauro Patel MD Gastroenterology Fellow #[id number] Attending Addendum: I interviewed and examined the patient with Dr. Patel on rounds. I confirm the history and sanchez physical findings outlined in this note. The assessment and plan were formulated in discussion with me at the time of this encounter, and I agree with them as documented. Brigitte Graf MD Gastroenterology and hepatology Pager: [phone] * Plan of Care - Jeevan Curiel RN - 05/02/2020 1:36 AM EDT Problem: Patient Care Overview Goal: Plan of Care Review Outcome: Ongoing (Interventions Implemented as Appropriate) 05/01/20 0559 05/01/20 2019 Coping/Psychosocial Plan Of Care Reviewed With -- [...] device Surveillance [continuous indirect monitoring]: Room near [facility] Patient-specific fall prevention interventions for sensory [...] Review Outcome: Ongoing (Interventions Implemented as Appropriate) 05/01/2055805/01/20899 Coping/Psychosocial Plan Of Care Reviewed With -- [...] Outcome: Ongoing (Interventions Implemented as Appropriate) 05/01/20 05 Coping/Psychosocial Plan Of Care Reviewed With patient [...] Outcome: Ongoing (Interventions Implemented as Appropriate) 04/29/20 8146 Coping/Psychosocial Plan Of Care Reviewed With patient [...] CONSULTATION NOTE Patient ID: Shannan Chaudhary Room: [address] [place] [address] Reason for Consult: liver abcess Consulting Service: Hospital Medicine Consulting Attending: Dale Dash MD Admission Date: 04/19/2020 History of Present Illness: 79 y.o. female with a history of DM2 (A1C 8.5%), severe who was admitted for sepsis secondary tocholecystitis. Due to her severe she was not a surgical candidate at her institution so was sent to [facility] for evaluation. She underwent pre-operative cardiac angiogram [...] Cholecystostomy Tube Placement 04/22/2020 Jos Collins, DO [facility] INTERVENTION[facility] RAD Medications: ??? apixaban (Eliquis) [...] immunocompromising conditions Social History: Lives alone in [place], [place] but has family members who live [...] Body Fluid Culture, Aerobic & Anaerobic Fluid [[id number]] (Abnormal) Collected: 04/28/20 1000 Lab Status: Preliminary result Specimen: Fluid Updated: 04/29/20 1409 Body Fluid Culture, Aerobic [[id number]] (Abnormal) Collected: 04/28/20 1000 Lab Status: Preliminary result Specimen: Fluid Updated: 04/29/20 1316 Body Fluid Culture One colony of Raoultella ornithinolytica (Klebsiella ornithinolytica) Gram Stain -- Few Neutrophils seen No microorganisms seen. Anaerobic Culture [[id number]] Collected: 04/28/20 1000 Lab Status: Preliminary result Specimen: Fluid Updated: 04/29/20 1409 Anaerobic Culture No anaerobic organisms isolated to date Body Fluid Culture, Aerobic & Anaerobic Bile [[id number]] (Abnormal) Collected: 04/22/20 1550 Lab Status: Final result Specimen: Bile Updated: 04/26/20 1544 Body Fluid Culture, Aerobic [[id number]] (Abnormal) (Susceptibility) Collected: 04/22/20 1550 Lab Status: [...] using in critically ill patients. Anaerobic Culture [[id number]] Collected: 04/22/20 1550 Lab Status: Final result Specimen: Bile Updated: 04/26/20 1549 Anaerobic Culture No anaerobic organisms isolated Radiology/Studies/Procedures: [...] us if further consultation required. Veda Avila, Infectious Diseases Fellow- PGY4 Pager: [phone] 04/29/2020 6:23 PM Associated attestation - Harris [...] type 2 DM who was transferred to [facility] on 04/19/20 for cardiology evaluation and surgical planning in the setting of acute cholecystitis. Reviewing her hospital course, she developed Afib with RVR complicated by hypotension and hypoxic respiratory failure on 04/20/20, she was taken to the laborer tin can on 04/21/20 whereshe had a RCA stent [...] Outcome: Ongoing (Interventions Implemented as Appropriate) 04/28/20 0604/28/20 08 Safety Interventions Isolation Precautions standard precautions [...] Abd dressing c/d/i. Hypertensive throughout shift MD rodríguez aware. No other significant events. Will continue [...] Outcome: Ongoing (Interventions Implemented as Appropriate) 04/26/20 7084 Coping/Psychosocial Plan Of Care Reviewed With patient [...] in an outpatient cardiac rehabilitation program at [facility] was discussed. Patient agrees to a [...] Outcome: Ongoing (Interventions Implemented as Appropriate) 04/24/20 5253 Coping/Psychosocial Plan Of Care Reviewed With patient [...] listening utilized Goal: Discharge Needs Assessment 04/19/20 18104/20/20 1537 Discharge Needs Assessment Concerns [...] are placed. Patient requests referral to :: [facility] [email or web address] PHONE: [phone] FAX: [phone] Expected date of discharge:next 24-48 hours Referral routed to the Investigative Assistant for matching with agency/vendor and to provide any required information. * Op Note - Esau Rahman MD - 04/21/2020 6:14 PM EDT [facility] Operative Note Patient Name: Shannan Farleyc : [id number] MR#: [id number] Case Date: 04/21/2020 Surgeon: Surgeon(s) and Role: * Esau Rahman MD - Primary * Raman, Sandy L, DO - Fellow Preoperative diagnosis: ?CAD Postoperative diagnosis: Successful PCI with 2 SYNERGY stents Note cardiac output normal, and mean gradient across aortic valve 20 mmHg ASA loaded prior to case, plavix 600 mg load given in the laborer tin can I spoke with Dr Garrison. Tentative plan [...] evident early complications. Results discussed with referring production cell leader, service production cell leader, and with the patient and theirfamily. A [...] is fair OUTCOME EVALUATION NOTE: OUTCOME SUMMARY: Despatching And Receiving Clerk assumed care of pt at 07:30. Pt [...] Esau Rahman MD MPH Structural Interventional Cardiology [place] [phone] , #5 Overall clinical summary: ?? This [...] to admission. She had not seen a production cell leader previously. Pertinent past history: Active Hospital Problems [...] tablet 37.5 mg 37.5 mg Oral Q6H [facility] Carol Reyna MD ??? sodium chloride 0.9 [...] injection 1-4 Units 1-4 Units Subcutaneous Q4H [facility] Jayashree Keenan MD ??? insulin glargine VIAL [...] questions, please feel free to contact me: [phone] #5 (marketing secretary Bert Ortega, and he will have me paged) or [email or web address]. Shannan Chaudhary 04/20/2020 Referring Providers: MD Alonzo Mcdonald, Bethany Francis MD [address] [place] [address] [address] [place] [address] ESAU RAHMAN MD 04/20/2020 TESTING: Recent Results [...] QTC Calculated (Bezet) 474 ms Calculated P [place] 59 degrees Calculated R [place] 26 degrees Calculated T [place] 2 degrees INTERPRETATION Normal sinus rhythm Right bundle branch block Abnormal ECG No previous ECGs available POCT Glucose Result Value Ref Range POC Glucose 112 65 - 199 mg/dL EKG 12 Lead Result Value Ref Range Ventricular rate 168 BPM Atrial Rate 174 BPM QRS Duration 128 ms Q-T Interval 288 ms QTC Calculated (Bezet) 481 ms Calculated R [place] 82 degrees Calculated T [place] -18 degrees INTERPRETATION Atrial fibrillation with rapid [...] mg/dL Lactate, whole blood, send to lab ([facility] Result Value Ref Range Lactate WB 1.6 0.5 - 2.2 mmol/L POCT Glucose Result Value Ref Range POC Glucose 128 65 - 199 mg/dL Echocardiogram Transthoracic([facility]) Result Value Ref Range EF 59 Troponin Result Value Ref Range Troponin-T 0.22 (H) 0.00 - 0.00 ng/mL EKG 12 Lead Result Value Ref Range Ventricular rate 77 BPM Atrial Rate 77 BPM P-R Interval 160 ms QRS Duration 120 ms Q-T Interval 406 ms QTC Calculated (Bezet) 459 ms Calculated P [place] 48 degrees Calculated R [place] 27 degrees Calculated T [place] 18 degrees INTERPRETATION Sinus rhythm with marked [...] Oral -- 18 91 % -- -- 04/19/201 117/62 37 ??C (98.6 ??F) Oral -- [...] tablet 37.5 mg 37.5 mg Oral Q6H BASIL Carol Reyna MD ??? sodium chloride 0.9 [...] injection 5,000 Units 5,000 Units Subcutaneous Q8H [facility] Jayashree Keenan MD 5,000 Units at 04/20/20 1023 ??? ondansetron (Zofran) tablet 4-8 mg 4-8 mg Oral Q8H PRN Jayashree Keenan MD Or ??? ondansetron (ZOFRAN) injection 4-8 mg 4-8 mg Intravenous Q8H PRN Jayashree eKenan MD ??? HYDROmorphone (DILAUDID) injection 0.4 mg [...] injection 1-4 Units 1-4 Units Subcutaneous Q4H [facility] Jayashree Keenan MD ??? insulin glargine VIAL [...] date and time: COVID-19 TESTING 04/18 Order: [id number] (suggestion) Information displayed in this report will [...] HC and that a copy is at [facility]. If AD's have not been completed adult children would be surrogate decision maker per [place] surrogate decision making law. Any patient receiving care at [facility] must abide by [place] law. The hierarchy for surrogate decision making [...] (i) The agent with financial power of diesel lube tech or a conservator appointed in accordance with RSA 464-A. (j) The guardian of the patient???s estate. Current Coping/Education/Information Needs: Coping well with hospital stay and feels updated on issues and plan. Current Functional Ability: Currently in CVCC. Having chest pain and RN notifying MD. Awaiting surgery once cleared by cardiology Functional Status Prior to Admission: States she is independent and active. 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 All able to assist if needed. Behavioral [...] Specific Information: n/a Health/Prescription Coverage: Primary Insurance: [employer] [place] Secondary Insurance: N/A Prescription Coverage: yes Preferred Pharmacy: [facility] Other: n/a Primary Care Provider: Reshma Baig MD [phone] Patient/Caregiver Goals of Treatment: home with no needs once medically ready Potential Needs for Transition of Care: Rehab/SNF: n/a Home Health: n/a DME: n/a Dialysis: n/a Community Resources: n/a Transportation: son Darwin will take her home Other: n/a Anticipated Barriers to Discharge/Special Considerations: none Assessment: Independent woman admitted for chloycystectomy And found to have A FIb with RVR. Has insurance through [employer]) with prescription coverage. Has accessible home and support of adult children. States she has advanced directives and we do not have a copy. Plan: Home no needs once medically ready. Have asked OCM to call [facility] for copy of AD. A member of the Care Management team will continue to monitor progress, follow for continuity of care and assist with transition of care planning. RESHMA ALLRED RN Pager: [phone] * Consult Note - Lisbeth Cain MD - 04/20/2020 10:04 AM EDT Images from the original note were not included. Inpatient Cardiology Consult Note Date of Consultation: 04/20/2020 Admit Date: 04/19/2020 Place of Service: CV21-A Consult Attending: Dr. Cain [facility] Day 1 day Reason for [...] to the hospital as a transfer [facility] for acute cholecystitis with pain since [...] walk up a flight of stairs, do electrotyper and other activities without being limited by [...] (23 ml/m2). Nicole: 0.66% risk of perioperative [place] or cardiac arrest Geriatric-sensitive RCRI: 2.1% probability of perioperative [place] or cardiac arrest Assessment: Ms. 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 Anam Cazares MD Team Supervisor PGY-5 04/20/2020 Page [phone] The indications, expected benefits, and potential risks [...] interactive; HR remained 140s. Patient moved to [facility] (Red), no events en route, report [...] POCT GLUCOSE Routine 05/03/2020 11:45 AM EDT UPPER GI ENDOSCOPY Routine 05/03/2020 9: 48 [...] EDT LACTATE, WHOLE BLOOD, SEND TO LAB ([facility]) Routine 04/20/2020 5:25 AM EDT POCT GLUCOSE [...] The procedure was performed under fluoroscopic guidance. Deputy Insurance Commissioner fluoroscopic images of the right upper quadrant [...] POC Glucose 195 65 - 199 mg/dL [facility] Comment: Supplemental ranges: <140 mg/dL before meals <180 mg/dL all other times of the day Blood specimen (specimen) 05/08/2020 11:10 AM EDT 05/08/2020 11:10 AM EDT Kota Gonzales MD POINT OF CARE TEST O ISAIAH Performing Organization Address [facility]/ZIP Co de Phone Number [facility] [place] [place] [address] * POCT Glucose (05/08/2020 6:51 AM EDT) POC Glucose 144 65 - 199 mg/dL [facility] Comment: Supplemental ranges: <140 mg/dL before meals <180 mg/dL all other times of the day Blood specimen (specimen) 05/08/2020 6:51 AM EDT 05/08/2020 6:51 AM EDT Milagros Velazquez MD POINT OF CARE TEST O RDERATOAN Performing Organization Address City/[facility]/ZIP Co de Phone Number [facility] [place] [place] [address] * Differential, Automated (05/08/2020 5:46 AM EDT) Neutrophils % 60.5 % [facility] Neutr Abs (ANC) 5.19 1.70 - 6.10 x10(3)/[facility] Lymphocytes % 28.3 % [facility] Lymphocytes Abs 2.4 0.9 - 3.2 x10(3)/[facility] Monocytes % 5.8 % [facility] Monocyte Abs 0.5 0.3 - 0.9 x10(3)/[facility] Eosinophils % 3.4 % [facility] Eosinophils Abs 0.3 0.0 - 0.4 x10(3)/[facility] Basophils % 1.5 % [facility] Basophils Abs 0.1 0.0 - 0.1 x10(3)/[facility] Immature Gran % 0.50 % [facility] Comment: Immature granulocytes(IG's)percentage and absolute count will include metamyelocytes, myelocytes, and promyelocytes. Blood smears from CBCs yielding IG's will be scanned manually for concordance. If this scan disagrees with the automated IG or if promyelocytes are noted, a manual differential will be performed. Nanci Gran Abs 0.04 0.00 - 0.04 x10(3)/[facility] Blood specimen (specimen) 05/08/2020 5:46 AM EDT 05/08/2020 6:21 AM EDT Narrative Resulting Agency Comment Spec In Lab Wilner Esparza MD HEMATOLOGY ORDERABLE S [facility] [place] [place] [address] * (ABNORMAL) Hemogram (05/08/2020 5:46 AM EDT) WBC 8.6 4.0 - 9.5 x10(3)/[facility] RBC 3.17(L) 4.00 - 5.21 x10(6)/[facility] Hemoglobin 8.8(L) 11.7 - 15.5 gm/dL [facility] Hematocrit 26.7(L) 35.7 - 45.8 % [facility] MCV 84.2 82.6 - 94.4 fL [facility] MCH 27.8 27.1 - 32.0 pg [facility] MCHC 33.0 31.7 - 35.0 gm/dL [facility] Platelets 351 145 - 357 x10(3)/[facility] RDWSD 46.5(H) 37.0 - 46.0 fL [facility] RDWCV 15.6(H) 11.5 - 14.1 % [facility] MPV 10.1 7.6 - 12.9 [facility] nRBC % Auto 0.0 % [facility] nRBC Abs Auto 0.000 0.000 - 0.000 x10(3)/[facility] Blood specimen (specimen) 05/08/2020 5:46 AM EDT 05/08/2020 6:21 AM EDT Narrative Resulting Agency Comment Spec In Lab Wilner Esparza MD HEMATOLOGY ORDERABLE S [facility] [place] [address] * (ABNORMAL) Basic Metabolic Panel (non-fasting) (05/08/2020 5:46 AM EDT) Glucose Lvl 152 65 - 199 mg/dL [facility] Comment:Diabetes: >=200 mg/d L plus symptoms BUN 20(H) 8 - 18 mg/dL [facility] Creatinine 0.85 0.70 - 1.20 mg/dL [facility] Sodium 136 135 - 145 mmol/L [facility] Potassium 4.1 3.5 - 5.0 mmol/L [facility] Comment: Please note: ??Patients with WBC >100,000 may have falsely elevated Potassium levels. ??For accurate Potassium quantification in these patients send serum separator tube (gold top) for subsequent determinations. ??Contact the Clinical Chemistry Laboratory if there are any questions. Chloride 107 98 - 107 mmol/L [facility] CO2 21(L) 22 - 31 mmol/L [facility] Anion Gap 8 5 - 15 mmol/L [facility] Calcium 8.9 8.5 - 10.5 mg/dL [facility] Estimated GFR 65 >=60 mL/min/1. 73 m?? [facility] Comment: The eGFR was calculated using the CKD-EPI equation. As with all creatinine based estimates of kidney function, eGFR values calculated with the CKD-EPI equation are not accurate in patients with acute kidney failure, extremes of body mass or the acutely ill. http://[employer]/[facility]nk[facility] eGFR 76 >=60 mL/min/1. 73 m?? [facility] Comment: The eGFR was calculated using the CKD-EPI equation. As with all creatinine based estimates of kidney function, eGFR values calculated with the CKD-EPI equation are not accurate in patients with acute kidney failure, extremes of body mass or the acutely ill. http://[employer]/[facility] Blood specimen (specimen) 05/08/2020 5:46 AM EDT 05/08/2020 6:20 AM EDT Narrative Resulting Agency Comment Spec In Lab Milagros Velazquez MD CHEMISTRY ORDERABLES Performing Organization Address [facility]/[employer] Co de Phone Number [facility] [place] [place] [address] * Magnesium (05/08/2020 5:46 AM EDT) Magnesium 0.79 0.69 - 1.07 mmol/L [facility] Blood specimen (specimen) 05/08/2020 5:46 AM EDT 05/08/2020 6:20 AM EDT Narrative Resulting Agency Comment Spec In Lab Dale Dash MD CHEMISTRY ORDERABLES Performing Organization Address [facility]/[employer] Co de Phone Number [facility] [place] [place] [address] * POCT Glucose (05/07/2020 8:35 PM EDT) POC Glucose 147 65 - 199 mg/dL [facility] Comment: Supplemental ranges: <140 mg/dL before meals <180 mg/dL all other times of the day Blood specimen (specimen) 05/07/2020 8:35 PM EDT 05/07/2020 8:35 PM EDT Milagros Velazquez MD POINT OF CARE TEST O RDERABLES Performing Organization Address [facility] de Phone Number [facility] [place] [place] [address] * POCT Glucose (05/07/2020 4:26 PM EDT) POC Glucose 173 65 - 199 mg/dL [facility] Comment: Supplemental ranges: <140 mg/dL before meals <180 mg/dL all other times of the day Blood specimen (specimen) 05/07/2020 4:26 PM EDT 05/07/2020 4:26 PM EDT Milagros Velazquez MD POINT OF CARE TEST O RDERABLES Performing Organization Address [facility] de Phone Number [facility] [place] [address] * POCT Glucose (05/07/2020 11:17 AM EDT) POC Glucose 185 65 - 199 mg/dL [facility] Comment: Supplemental ranges: <140 mg/dL before meals <180 mg/dL all other times of the day Blood specimen (specimen) 05/07/2020 11:17 AM EDT 05/07/2020 11:17 AM EDT Milagros Velazquez MD POINT OF CARE TEST O RDERABLES Performing Organization Address City/[facility]/ZIP Co de Phone Number [facility] [place] [place] [address] * POCT Glucose (05/07/2020 7:20 AM EDT) Pathologist [facility] POC Glucose 145 65 - 199 mg/dL [facility] Comment: Supplemental ranges: <140 mg/dL before meals <180 mg/dL all other times of the day Blood specimen (specimen) 05/07/2020 7:20 AM EDT 05/07/2020 7:20 AM EDT Milagros Velazquez MD POINT OF CARE TEST O ISAIAH [facility] [place] [address] * Differential, Automated (05/07/2020 6:45 AM EDT) Pathologist [facility] Neutrophils % 53.8 % [facility] Neutr Abs (ANC) 4.19 1.70 - 6.10 x10(3)/[facility] Lymphocytes % 33.1 % [facility] Lymphocytes Abs 2.6 0.9 - 3.2 x10(3)/[facility] Monocytes % 7.6 % [facility] Monocyte Abs 0.6 0.3 - 0.9 x10(3)/[facility] Eosinophils % 3.2 % [facility] Eosinophils Abs 0.2 0.0 - 0.4 x10(3)/[facility] Basophils % 1.8 % [facility] Basophils Abs 0.1 0.0 - 0.1 x10(3)/[facility] Immature Gran % 0.50 % [facility] Comment: Immature granulocytes(IG's)percentage and absolute count will include metamyelocytes, myelocytes, and promyelocytes. Blood smears from CBCs yielding IG's will be scanned manually for concordance. If this scan disagrees with the automated IG or if promyelocytes are noted, a manual differential will be performed. Nanci Gran Abs 0.04 0.00 - 0.04 x10(3)/[facility] Blood specimen (specimen) 05/07/2020 6:45 AM EDT 05/07/2020 7:01 AM EDT Narrative Resulting Agency Comment Spec In Lab Wilner sEparza MD HEMATOLOGY ORDERABLE S [facility] [place] [place] [address] * (ABNORMAL) Hemogram (05/07/2020 6:45 AM EDT) WBC 7.8 4.0 - 9.5 x10(3)/[facility] RBC 3.19(L) 4.00 - 5.21 x10(6)/[facility] Hemoglobin 8.8(L) 11.7 - 15.5 gm/dL [facility] Hematocrit 26.4(L) 35.7 - 45.8 % [facility] MCV 82.8 82.6 - 94.4 fL [facility] MCH 27.6 27.1 - 32.0 pg [facility] MCHC 33.3 31.7 - 35.0 gm/dL [facility] Platelets 360(H) 145 - 357 x10(3)/[facility] RDWSD 44.9 37.0 - 46.0 [facility] RDWCV 15.2(H) 11.5 - 14.1 % [facility] MPV 9.9 7.6 - 12.9 fL [facility] nRBC % Auto 0.0 % [facility] nRBC Abs Auto 0.000 0.000 - 0.000 x10(3)/[facility] Blood specimen (specimen) 05/07/2020 6:45 AM EDT 05/07/2020 7:01 AM EDT Narrative Resulting Agency Comment Spec In Lab Wilner Esparza MD HEMATOLOGY ORDERABLE S [facility] [place] [place] [address] * (ABNORMAL) Basic Metabolic Panel (non-fasting) (05/07/2020 6:45 AM EDT) Glucose Lvl 145 65 - 199 mg/dL [facility] Comment:Diabetes: >=200 mg/d L plus symptoms BUN 18 8 - 18 mg/dL [facility] Creatinine 0.85 0.70 - 1.20 mg/dL [facility] Sodium 137 135 - 145 mmol/L [facility] Potassium 4.1 3.5 - 5.0 mmol/L [facility] Comment: Please note: ??Patients with WBC >100,000 may have falsely elevated Potassium levels. ??For accurate Potassium quantification in these patients send serum separator tube (gold top) for subsequent determinations. ??Contact the Clinical Chemistry Laboratory if there are any questions. Chloride 105 98 - 107 mmol/L [facility] CO2 21(L) 22 - 31 mmol/L [facility] Anion Gap 11 5 - 15 mmol/L [facility] Calcium 8.9 8.5 - 10.5 mg/dL [facility] Estimated GFR 65 >=60 mL/min/1. 73 m?? [facility] Comment: The eGFR was calculated using the CKD-EPI equation. As with all creatinine based estimates of kidney function, eGFR values calculated with the CKD-EPI equation are not accurate in patients with acute kidney failure, extremes of body mass or the acutely ill. http://[employer]/[facility]nk[facility] eGFR 76 >=60 mL/min/1. 73 m?? [facility] Comment: The eGFR was calculated using the CKD-EPI equation. As with all creatinine based estimates of kidney function, eGFR values calculated with the CKD-EPI equation are not accurate in patients with acute kidney failure, extremes of body mass or the acutely ill. http://[employer]/[facility]nk[facility] Blood specimen (specimen) 05/07/2020 6:45 AM EDT 05/07/2020 7:01 AM EDT Narrative Resulting Agency Comment Spec In Lab Milagros Velazquez MD CHEMISTRY ORDERABLES Performing Organization Address [facility]/[employer] Co de Phone Number [facility] [place] [address] * Magnesium (05/07/2020 6:45 AM EDT) Magnesium 0.82 0.69 - 1.07 mmol/L [facility] Blood specimen (specimen) 05/07/2020 6:45 AM EDT 05/07/2020 7:01 AM EDT Narrative Resulting Agency Comment Spec In Lab Dale Dash MD CHEMISTRY ORDERABLES Performing Organization Address [facility] de Phone Number [facility] [place] [address] * POCT Glucose (05/07/2020 4:11 AM EDT) POC Glucose 156 65 - 199 mg/dL [facility] Comment: Supplemental ranges: <140 mg/dL before meals <180 mg/dL all other times of the day Blood specimen (specimen) 05/07/2020 4:11 AM EDT 05/07/2020 4:11 AM EDT Milagros Velazquez MD POINT OF CARE TEST O RDERABLES Performing Organization Address [facility]/[employer] Co de Phone Number [facility] [place] [address] * POCT Glucose (05/06/2020 11:36 PM EDT) POC Glucose 172 65 - 199 mg/dL [facility] Comment: Supplemental ranges: <140 mg/dL before meals <180 mg/dL all other times of the day Blood specimen (specimen) 05/06/2020 11:36 PM EDT 05/06/2020 11:36 PM EDT Milagros Velazquez MD POINT OF CARE TEST O RDERABLES Performing Organization Address [facility]/[employer] Co de Phone Number [facility] [place] [address] * POCT Glucose (05/06/2020 8:28 PM EDT) POC Glucose 195 65 - 199 mg/dL [facility] Comment: Supplemental ranges: <140 mg/dL before meals <180 mg/dL all other times of the day Blood specimen (specimen) 05/06/2020 8:28 PM EDT 05/06/2020 8:28 PM EDT Milagros Velazquez MD POINT OF CARE TEST O RDERATOAN Performing Organization Address [facility] de Phone Number [facility] [place] [address] * Differential, Automated (05/06/2020 5:36 PM EDT) Pathologist [facility] Neutrophils % 62.8 % [facility] Neutr Abs (ANC) 6.07 1.70 - 6.10 x10(3)/[facility] Lymphocytes % 27.5 % [facility] Lymphocytes Abs 2.7 0.9 - 3.2 x10(3)/[facility] Monocytes % 5.7 % [facility] Monocyte Abs 0.6 0.3 - 0.9 x10(3)/[facility] Eosinophils % 2.3 % [facility] Eosinophils Abs 0.2 0.0 - 0.4 x10(3)/[facility] Basophils % 1.3 % [facility] Basophils Abs 0.1 0.0 - 0.1 x10(3)/[facility] Immature Gran % 0.40 % [facility] Comment: Immature granulocytes(IG's)percentage and absolute count will include metamyelocytes, myelocytes, and promyelocytes. Blood smears from CBCs yielding IG's will be scanned manually for concordance. If this scan disagrees with the automated IG or if promyelocytes are noted, a manual differential will be performed. Nanci Gran Abs 0.04 0.00 - 0.04 x10(3)/[facility] Blood specimen (specimen) 05/06/2020 5:36 PM EDT 05/06/2020 6:04 PM EDT Narrative Resulting Agency Comment Spec In Lab Wilner Esparza MD HEMATOLOGY ORDERABLE S [facility] [place] [address] * (ABNORMAL) Hemogram (05/06/2020 5:36 PM EDT) WBC 9.7(H) 4.0 - 9.5 x10(3)/[facility] RBC 3.53(L) 4.00 - 5.21 x10(6)/[facility] Hemoglobin 9.7(L) 11.7 - 15.5 gm/dL [facility] Hematocrit 29.8(L) 35.7 - 45.8 % [facility] MCV 84.4 82.6 - 94.4 fL [facility] MCH 27.5 27.1 - 32.0 pg [facility] MCHC 32.6 31.7 - 35.0 gm/dL [facility] Platelets 427(H) 145 - 357 x10(3)/[facility] RDWSD 45.3 37.0 - 46.0 [facility] RDWCV 14.9(H) 11.5 - 14.1 % [facility] MPV 10.0 7.6 - 12.9 [facility] nRBC % Auto 0.0 % [facility] nRBC Abs Auto 0.000 0.000 - 0.000 x10(3)/mcL [facility] Blood specimen (specimen) 05/06/2020 5:36 PM EDT 05/06/2020 6:04 PM EDT Narrative Resulting Agency Comment Spec In Lab Wilner Esparza MD HEMATOLOGY ORDERABLE S Performing Organization Address City/[facility]/ZIP Co de Phone Number [facility] [place] [address] * Transfuse RBC (05/06/2020 4:30 PM EDT) Milagros Velazquez MD NURSING TREATMENT OR DERABLES - BLOOD ADMIN * Transfuse RBC (05/06/2020 4:30 PM EDT) Milagros Velazquez MD NURSING TREATMENT OR DERABLES - BLOOD ADMIN * POCT Glucose (05/06/2020 4:20 PM EDT) POC Glucose 165 65 - 199 mg/dL [facility] Comment: Supplemental ranges: <140 mg/dL before meals <180 mg/dL all other times of the day Blood specimen (specimen) 05/06/2020 4:20 PM EDT 05/06/2020 4:20 PM EDT Milagros Velazquez MD POINT OF CARE TEST O RDERABLES Performing Organization Address City/[facility]/ZIP Co de Phone Number [facility] [place] [address] * ABORH Recheck Status (05/06/2020 12:46 PM EDT) ABORH Type Recheck Completed [facility] Blood specimen (specimen) 05/06/2020 12:46 PM EDT 05/06/2020 12:51 PM EDT Narrative Resulting Agency Comment Spec In Lab Wilner Esparza MD BLOOD BANK LAB ORDER JAMIE Performing Organization Address City/[facility]/ZIP Co de Phone Number [facility] [place] [address] * Antibody screen (05/06/2020 12:46 PM EDT) [facility] Ab Screen Interp Negative [facility] [facility] Expires at [id number] on: 05/09/2020 [facility] Blood specimen (specimen) 05/06/2020 12:46 PM EDT 05/06/2020 12:51 PM EDT Narrative Resulting Agency Comment Spec In Lab Wilner Esparza MD BLOOD BANK LAB ORDER JAMIE [facility] [place] [place] [address] * ABO/Rh Typing (05/06/2020 12:46 PM EDT) [facility] ABORH Type O Pos [facility] Blood specimen (specimen) 05/06/2020 12:46 PM EDT 05/06/2020 12:51 PM EDT Narrative Resulting Agency Comment Spec In Lab Wilner Esparza MD BLOOD BANK LAB ORDER JAMIE [facility] [place] [place] [address] * Prepare RBC (05/06/2020 12:15 PM EDT) [facility] Dispensed? Yes [facility] Blood specimen (specimen) 05/06/2020 12:15 PM EDT 05/06/2020 12:14 PM EDT Narrative Resulting Agency Comment Spec In Lab Milagros Velazquez MD BLOOD BANK PRODUCT O RDERABLES [facility] [place] [address] * (ABNORMAL) POCT Glucose (05/06/2020 11:50 AM EDT) [facility] POC Glucose 200(H) 65 - 199 mg/dL [facility] Comment: Supplemental ranges: <140 mg/dL before meals <180 mg/dL all other times of the day Blood specimen (specimen) 05/06/2020 11:50 AM EDT 05/06/2020 11:50 AM EDT Milagros Velazquez MD POINT OF CARE TEST O RDERATOAN Performing Organization Address [facility] de Phone Number [facility] [place] [address] * POCT Glucose (05/06/2020 7:39 AM EDT) Pathologist [facility] POC Glucose 153 65 - 199 mg/dL [facility] Comment: Supplemental ranges: <140 mg/dL before meals <180 mg/dL all other times of the day Blood specimen (specimen) 05/06/2020 7:39 AM EDT 05/06/2020 7:39 AM EDT Milagros Velazquez MD POINT OF CARE TEST O ISAIAH Performing Organization Address [facility] de Phone Number [facility] [place] [address] * Differential, Automated (05/06/2020 5:25 AM EDT) Pathologist [facility] Neutrophils % 56.6 % [facility] Neutr Abs (ANC) 4.64 1.70 - 6.10 x10(3)/[facility] Lymphocytes % 30.6 % [facility] Lymphocytes Abs 2.5 0.9 - 3.2 x10(3)/[facility] Monocytes % 7.8 % [facility] Monocyte Abs 0.6 0.3 - 0.9 x10(3)/[facility] Eosinophils % 3.0 % [facility] Eosinophils Abs 0.2 0.0 - 0.4 x10(3)/[facility] Basophils % 1.6 % [facility] Basophils Abs 0.1 0.0 - 0.1 x10(3)/[facility] Immature Gran % 0.40 % [facility] Comment: Immature granulocytes(IG's)percentage and absolute count will include metamyelocytes, myelocytes, and promyelocytes. Blood smears from CBCs yielding IG's will be scanned manually for concordance. If this scan disagrees with the automated IG or if promyelocytes are noted, a manual differential will be performed. Nanci Gran Abs 0.03 0.00 - 0.04 x10(3)/[facility] Blood specimen (specimen) 05/06/2020 5:25 AM EDT 05/06/2020 5:25 AM EDT Narrative Resulting Agency Comment Spec In Lab Wilner Esparza MD HEMATOLOGY ORDERABLE S [facility] [place] [address] * (ABNORMAL) Hemogram (05/06/2020 5:25 AM EDT) WBC 8.2 4.0 - 9.5 x10(3)/[facility] RBC 2.58(L) 4.00 - 5.21 x10(6)/[facility] Hemoglobin 7.0(L) 11.7 - 15.5 gm/dL [facility] Hematocrit 22.1(L) 35.7 - 45.8 % [facility] MCV 85.7 82.6 - 94.4 fL [facility] MCH 27.1 27.1 - 32.0 pg [facility] MCHC 31.7 31.7 - 35.0 gm/dL [facility] Platelets 364(H) 145 - 357 x10(3)/[facility] RDWSD 46.5(H) 37.0 - 46.0 [facility] RDWCV 15.2(H) 11.5 - 14.1 % [facility] MPV 9.9 7.6 - 12.9 [facility] nRBC % Auto 0.0 % [facility] nRBC Abs Auto 0.000 0.000 - 0.000 x10(3)/mcL [facility] Blood specimen (specimen) 05/06/2020 5:25 AM EDT 05/06/2020 5:25 AM EDT Narrative Resulting Agency Comment Spec In Lab Wilner Esparza MD HEMATOLOGY ORDERABLE S [facility] [place] [place] [address] * (ABNORMAL) Basic Metabolic Panel (non-fasting) (05/06/2020 5:25 AM EDT) Glucose Lvl 136 65 - 199 mg/dL [facility] Comment:Diabetes: >=200 mg/d L plus symptoms BUN 24(H) 8 - 18 mg/dL [facility] Creatinine 0.85 0.70 - 1.20 mg/dL [facility] Sodium 137 135 - 145 mmol/L [facility] Potassium 4.2 3.5 - 5.0 mmol/L [facility] Comment: Please note: ??Patients with WBC >100,000 may have falsely elevated Potassium levels. ??For accurate Potassium quantification in these patients send serum separator tube (gold top) for subsequent determinations. ??Contact the Clinical Chemistry Laboratory if there are any questions. Chloride 106 98 - 107 mmol/L [facility] CO2 21(L) 22 - 31 mmol/L [facility] Anion Gap 10 5 - 15 mmol/L [facility] Calcium 8.7 8.5 - 10.5 mg/dL [facility] Estimated GFR 65 >=60 mL/min/1. 73 m?? [facility] Comment: The eGFR was calculated using the CKD-EPI equation. As with all creatinine based estimates of kidney function, eGFR values calculated with the CKD-EPI equation are not accurate in patients with acute kidney failure, extremes of body mass or the acutely ill. http://[employer]/DHnkf eGFR 76 >=60 mL/min/1. 73 m?? [facility] Comment: The eGFR was calculated using the CKD-EPI equation. As with all creatinine based estimates of kidney function, eGFR values calculated with the CKD-EPI equation are not accurate in patients with acute kidney failure, extremes of body mass or the acutely ill. http://[employer]/DHMCnkf Blood specimen (specimen) 05/06/2020 5:25 AM EDT 05/06/2020 5:25 AM EDT Narrative Resulting Agency Comment Spec In Lab Milagros Velazquez MD CHEMISTRY ORDERABLES Performing Organization Address [facility] de Phone Number [facility] [place] [address] * Magnesium (05/06/2020 5:25 AM EDT) Magnesium 0.84 0.69 - 1.07 mmol/L [facility] Blood specimen (specimen) 05/06/2020 5:25 AM EDT 05/06/2020 5:25 AM EDT Narrative Resulting Agency Comment Spec In Lab Dale Dash MD CHEMISTRY ORDERABLES Performing Organization Address [facility] de Phone Number [facility] [place] [address] * POCT Glucose (05/06/2020 4:08 AM EDT) POC Glucose 154 65 - 199 mg/dL [facility] Comment: Supplemental ranges: <140 mg/dL before meals <180 mg/dL all other times of the day Blood specimen (specimen) 05/06/2020 4:08 AM EDT 05/06/2020 4:08 AM EDT Milagros Velazquez MD POINT OF CARE TEST O RDERABLES Performing Organization Address [facility] de Phone Number [facility] [place] [address] * SCAN DOC: LAB (05/06/2020 12:00 AM EDT) Narrative 05/06/2020 12:00 AM EDT Ordered by an unspecified provider. Scanning Provider MEDIA MGR SCAN EXT O RDR/RSLT * POCT Glucose (05/05/2020 11:58 PM EDT) POC Glucose 184 65 - 199 mg/dL [facility] Comment: Supplemental ranges: <140 mg/dL before meals <180 mg/dL all other times of the day Blood specimen (specimen) 05/05/2020 11:58 PM EDT 05/05/2020 11:58 PM EDT Milagros Velazquez MD POINT OF CARE TEST O RDERATOAN Performing Organization Address [facility]/ZIP Co de Phone Number [facility] [place] [address] * POCT Glucose (05/05/2020 8:18 PM EDT) POC Glucose 173 65 - 199 mg/dL [facility] Comment: Supplemental ranges: <140 mg/dL before meals <180 mg/dL all other times of the day Blood specimen (specimen) 05/05/2020 8:18 PM EDT 05/05/2020 8:18 PM EDT Milagros Velazquez MD POINT OF CARE TEST O RDERATOAN Performing Organization Address City/[facility]/ZIP Co de Phone Number [facility] [place] [address] * POCT Glucose (05/05/2020 4:36 PM EDT) POC Glucose 147 65 - 199 mg/dL [facility] Comment: Supplemental ranges: <140 mg/dL before meals <180 mg/dL all other times of the day Blood specimen (specimen) 05/05/2020 4:36 PM EDT 05/05/2020 4:36 PM EDT Milagros Velazquez MD POINT OF CARE TEST O RDERABLES Performing Organization Address City/[facility]/ZIP Co de Phone Number [facility] [place] [address] * (ABNORMAL) Hemogram (05/05/2020 2:13 PM EDT) WBC 9.3 4.0 - 9.5 x10(3)/[facility] RBC 2.85(L) 4.00 - 5.21 x10(6)/[facility] Hemoglobin 7.7(L) 11.7 - 15.5 gm/dL [facility] Hematocrit 24.3(L) 35.7 - 45.8 % [facility] MCV 85.3 82.6 - 94.4 fL [facility] MCH 27.0(L) 27.1 - 32.0 pg [facility] MCHC 31.7 31.7 - 35.0 gm/dL [facility] Platelets 386(H) 145 - 357 x10(3)/[facility] RDWSD 45.7 37.0 - 46.0 [facility] RDWCV 14.8(H) 11.5 - 14.1 % [facility] MPV 9.8 7.6 - 12.9 [facility] nRBC % Auto 0.0 % [facility] nRBC Abs Auto 0.000 0.000 - 0.000 x10(3)/[facility] Blood specimen (specimen) 05/05/2020 2:13 PM EDT 05/05/2020 2:18 PM EDT Narrative Resulting Agency Comment Spec In Lab Milagros Velazquez MD HEMATOLOGY ORDERABLE S Performing Organization Address City/[facility]/ZIP Co de Phone Number [facility] [place] [address] * POCT Glucose (05/05/2020 12:12 PM EDT) [facility] POC Glucose 177 65 - 199 mg/dL [facility] Comment: Supplemental ranges: <140 mg/dL before meals <180 mg/dL all other times of the day Blood specimen (specimen) 05/05/2020 12:12 PM EDT 05/05/2020 12:12 PM EDT Milagros Velazquez MD POINT OF CARE TEST O ISAIAH Performing Organization Address [facility] de Phone Number [facility] [place] [address] * POCT Glucose (05/05/2020 7:41 AM EDT) [facility] POC Glucose 176 65 - 199 mg/dL [facility] Comment: Supplemental ranges: <140 mg/dL before meals <180 mg/dL all other times of the day Blood specimen (specimen) 05/05/2020 7:41 AM EDT 05/05/2020 7:41 AM EDT Milagros Velazquez MD POINT OF CARE TEST O ISAIAH Performing Organization Address [facility] de Phone Number [facility] [place] [address] * (ABNORMAL) Differential, Automated (05/05/2020 7:34 AM EDT) [facility] Neutrophils % 64.5 % [facility] Neutr Abs (ANC) 5.88 1.70 - 6.10 x10(3)/mc L [facility] Lymphocytes % 24.1 % [facility] Lymphocytes Abs 2.2 0.9 - 3.2 x10(3)/mc L [facility] Monocytes % 7.0 % [facility] Monocyte Abs 0.6 0.3 - 0.9 x10(3)/mc L [facility] Eosinophils % 2.7 % [facility] Eosinophils Abs 0.2 0.0 - 0.4 x10(3)/[facility] Basophils % 1.2 % [facility] Basophils Abs 0.1 0.0 - 0.1 x10(3)/[facility] Immature Gran % 0.50 % [facility] Comment: Immature granulocytes(IG's)percentage and absolute count will include metamyelocytes, myelocytes, and promyelocytes. Blood smears from CBCs yielding IG's will be scanned manually for concordance. If this scan disagrees with the automated IG or if promyelocytes are noted, a manual differential will be performed. Nanci Gran Abs 0.05(H) 0.00 - 0.04 x10(3)/[facility] Blood specimen (specimen) 05/05/2020 7:34 AM EDT 05/05/2020 7:38 AM EDT Narrative Resulting Agency Comment Spec In Lab Wilner Esparza MD HEMATOLOGY ORDERABLE S [facility] [place] [address] * (ABNORMAL) Hemogram (05/05/2020 7:34 AM EDT) WBC 9.1 4.0 - 9.5 x10(3)/[facility] RBC 2.76(L) 4.00 - 5.21 x10(6)/[facility] Hemoglobin 7.6(L) 11.7 - 15.5 gm/dL [facility] Hematocrit 23.6(L) 35.7 - 45.8 % [facility] MCV 85.5 82.6 - 94.4 fL [facility] MCH 27.5 27.1 - 32.0 pg [facility] MCHC 32.2 31.7 - 35.0 gm/dL [facility] Platelets 386(H) 145 - 357 x10(3)/[facility] RDWSD 46.0 37.0 - 46.0 fL [facility] RDWCV 15.1(H) 11.5 - 14.1 % [facility] MPV 9.9 7.6 - 12.9 fL [facility] nRBC % Auto 0.0 % [facility] nRBC Abs Auto 0.000 0.000 - 0.000 x10(3)/mcL [facility] Blood specimen (specimen) 05/05/2020 7:34 AM EDT 05/05/2020 7:38 AM EDT Narrative Resulting Agency Comment Spec In Lab Wilner Esparza MD HEMATOLOGY ORDERABLE S [facility] [place] [address] * (ABNORMAL) Basic Metabolic Panel (non-fasting) (05/05/2020 7:34 AM EDT) Glucose Lvl 157 65 - 199 mg/dL [facility] Comment:Diabetes: >=200 mg/d L plus symptoms BUN 28(H) 8 - 18 mg/dL [facility] Creatinine 0.74 0.70 - 1.20 mg/dL [facility] Sodium 137 135 - 145 mmol/L [facility] Potassium 4.4 3.5 - 5.0 mmol/L [facility] Comment: Please note: ??Patients with WBC >100,000 may have falsely elevated Potassium levels. ??For accurate Potassium quantification in these patients send serum separator tube (gold top) for subsequent determinations. ??Contact the Clinical Chemistry Laboratory if there are any questions. Chloride 105 98 - 107 mmol/L [facility] CO2 21(L) 22 - 31 mmol/L [facility] Anion Gap 11 5 - 15 mmol/L [facility] Calcium 8.5 8.5 - 10.5 mg/dL [facility] Estimated GFR 77 >=60 mL/min/1. 73 m?? [facility] Comment: The eGFR was calculated using the CKD-EPI equation. As with all creatinine based estimates of kidney function, eGFR values calculated with the CKD-EPI equation are not accurate in patients with acute kidney failure, extremes of body mass or the acutely ill. http://[employer]/DHMCnkf eGFR 89 >=60 mL/min/1. 73 m?? [facility] Comment: The eGFR was calculated using the CKD-EPI equation. As with all creatinine based estimates of kidney function, eGFR values calculated with the CKD-EPI equation are not accurate in patients with acute kidney failure, extremes of body mass or the acutely ill. http://[employer]/DHnkf Blood specimen (specimen) 05/05/2020 7:34 AM EDT 05/05/2020 7:38 AM EDT Narrative Resulting Agency Comment Spec In Lab Milagros Velazquez MD CHEMISTRY ORDERABLES Performing Organization Address City/[facility]/ZIP Co de Phone Number [facility] [place] [address] * Magnesium (05/05/2020 5:29 AM EDT) Magnesium 0.81 0.69 - 1.07 mmol/L [facility] Blood specimen (specimen) 05/05/2020 5:29 AM EDT 05/05/2020 5:54 AM EDT Narrative Resulting Agency Comment Spec In Lab Dale Dash MD CHEMISTRY ORDERABLES Performing Organization Address City/[facility]/ZIP Co de Phone Number [facility] [place] [address] * POCT Glucose (05/05/2020 4:08 AM EDT) POC Glucose 148 65 - 199 mg/dL [facility] Comment: Supplemental ranges: <140 mg/dL before meals <180 mg/dL all other times of the day Blood specimen (specimen) 05/05/2020 4:08 AM EDT 05/05/2020 4:08 AM EDT Milagros Velazquez MD POINT OF CARE TEST O RDERABLES Performing Organization Address City/[facility]/ZIP Co de Phone Number [facility] [place] [address] * POCT Glucose (05/04/2020 11:41 PM EDT) Pathologist [facility] POC Glucose 173 65 - 199 mg/dL [facility] Comment: Supplemental ranges: <140 mg/dL before meals <180 mg/dL all other times of the day Blood specimen (specimen) 05/04/2020 11:41 PM EDT 05/04/2020 11:41 PM EDT Milagros Velazquez MD POINT OF CARE TEST O RDERATOAN Performing Organization Address [facility] Co de Phone Number [facility] [place] [address] * (ABNORMAL) Hemogram (05/04/2020 8:12 PM EDT) WBC 11.8(H) 4.0 - 9.5 x10(3)/[facility] RBC 3.02(L) 4.00 - 5.21 x10(6)/[facility] Hemoglobin 8.2(L) 11.7 - 15.5 gm/dL [facility] Hematocrit 25.8(L) 35.7 - 45.8 % [facility] MCV 85.4 82.6 - 94.4 fL [facility] MCH 27.2 27.1 - 32.0 pg [facility] MCHC 31.8 31.7 - 35.0 gm/dL [facility] Platelets 418(H) 145 - 357 x10(3)/[facility] RDWSD 45.9 37.0 - 46.0 fL [facility] RDWCV 15.1(H) 11.5 - 14.1 % [facility] MPV 10.0 7.6 - 12.9 fL [facility] nRBC % Auto 0.0 % [facility] nRBC Abs Auto 0.000 0.000 - 0.000 x10(3)/mcL [facility] Blood specimen (specimen) 05/04/2020 8:12 PM EDT 05/04/2020 8:36 PM EDT Narrative Resulting Agency Comment Spec In Lab Milagros Velazquez MD HEMATOLOGY ORDERABLE S [facility] [place] [address] * POCT Glucose (05/04/2020 7:45 PM EDT) POC Glucose 178 65 - 199 mg/dL [facility] Comment: Supplemental ranges: <140 mg/dL before meals <180 mg/dL all other times of the day Blood specimen (specimen) 05/04/2020 7:45 PM EDT 05/04/2020 7:45 PM EDT Milagros Velazquez MD POINT OF CARE TEST O RDERABLES Performing Organization Address [facility]/ZIP Co de Phone Number [facility] [place] [address] * POCT Glucose (05/04/2020 4:19 PM EDT) POC Glucose 160 65 - 199 mg/dL [facility] Comment: Supplemental ranges: <140 mg/dL before meals <180 mg/dL all other times of the day Blood specimen (specimen) 05/04/2020 4:19 PM EDT 05/04/2020 4:19 PM EDT Milagros Velazquez MD POINT OF CARE TEST O RDERABLES Performing Organization Address City/[facility]/ZIP Co de Phone Number [facility] [place] [address] * (ABNORMAL) Hemogram (05/04/2020 2:26 PM EDT) Pathologist [facility] WBC 10.6(H) 4.0 - 9.5 x10(3)/[facility] LABORATORY RBC 3.04(L) 4.00 - 5.21 x10(6)/[facility] Hemoglobin 8.3(L) 11.7 - 15.5 gm/dL [facility] Hematocrit 26.1(L) 35.7 - 45.8 % [facility] MCV 85.9 82.6 - 94.4 fL [facility] MCH 27.3 27.1 - 32.0 pg [facility] MCHC 31.8 31.7 - 35.0 gm/dL [facility] Platelets 474(H) 145 - 357 x10(3)/[facility] LABORATORY RDWSD 46.4(H) 37.0 - 46.0 [facility]ATORY RDWCV 15.0(H) 11.5 - 14.1 % [facility] MPV 10.4 7.6 - 12.9 [facility] LAB[facility] nRBC % Auto 0.0 % [facility] nRBC Abs Auto 0.000 0.000 - 0.000 x10(3)/[facility] Blood specimen (specimen) 05/04/2020 2:26 PM EDT 05/04/2020 2:42 PM EDT Narrative Resulting Agency Comment Spec In Lab Milagros Velazquez MD HEMATOLOGY ORDERABLE S [facility] [place] [address] * POCT Glucose (05/04/2020 11:36 AM EDT) Pathologist [facility] POC Glucose 174 65 - 199 mg/dL [facility] Comment: Supplemental ranges: <140 mg/dL before meals <180 mg/dL all other times of the day Blood specimen (specimen) 05/04/2020 11:36 AM EDT 05/04/2020 11:36 AM EDT Milagros Velazquez MD POINT OF CARE TEST O ISAIAH Performing Organization Address [facility] Co de Phone Number [facility] [place] [address] * POCT Glucose (05/04/2020 8:19 AM EDT) Pathologist [facility] POC Glucose 167 65 - 199 mg/dL [facility] Comment: Supplemental ranges: <140 mg/dL before meals <180 mg/dL all other times of the day Blood specimen (specimen) 05/04/2020 8:19 AM EDT 05/04/2020 8:19 AM EDT Milagros Velazquez MD POINT OF CARE TEST O ISAIAH Performing Organization Address [facility] de Phone Number [facility] [place] [address] * (ABNORMAL) Differential, Automated (05/04/2020 5:18 AM EDT) Pathologist [facility] Neutrophils % 64.3 % [facility] Neutr Abs (ANC) 7.33(H) 1.70 - 6.10 x10(3)/mc L [facility] Lymphocytes % 23.3 % [facility] Lymphocytes Abs 2.7 0.9 - 3.2 x10(3)/mc L [facility] Monocytes % 7.4 % [facility] Monocyte Abs 0.8 0.3 - 0.9 x10(3)/mc L [facility] Eosinophils % 3.4 % [facility] Eosinophils Abs 0.4 0.0 - 0.4 x10(3)/ L [facility] Basophils % 1.1 % [facility] Basophils Abs 0.1 0.0 - 0.1 x10(3)/ L [facility] Immature Gran % 0.50 % [facility] Comment: Immature granulocytes(IG's)percentage and absolute count will include metamyelocytes, myelocytes, and promyelocytes. Blood smears from CBCs yielding IG's will be scanned manually for concordance. If this scan disagrees with the automated IG or if promyelocytes are noted, a manual differential will be performed. Nanci Gran Abs 0.06(H) 0.00 - 0.04 x10(3)/mc L [facility] Blood specimen (specimen) 05/04/2020 5:18 AM EDT 05/04/2020 5:40 AM EDT Narrative Resulting Agency Comment Spec In Lab Davon Leung MD HEMATOLOGY ORDERABLE S [facility] [place] [address] * (ABNORMAL) Hemogram (05/04/2020 5:18 AM EDT) WBC 11.4(H) 4.0 - 9.5 x10(3)/[facility] LABORATORY RBC 2.97(L) 4.00 - 5.21 x10(6)/[facility] Hemoglobin 8.0(L) 11.7 - 15.5 gm/dL [facility] Hematocrit 25.6(L) 35.7 - 45.8 % [facility] MCV 86.2 82.6 - 94.4 fL [facility] MCH 26.9(L) 27.1 - 32.0 pg [facility] MCHC 31.3(L) 31.7 - 35.0 gm/dL [facility] Platelets 415(H) 145 - 357 x10(3)/[facility] RDWSD 47.3(H) 37.0 - 46.0 fL [facility] RDWCV 15.2(H) 11.5 - 14.1 % [facility] MPV 10.0 7.6 - 12.9 fL [facility] nRBC % Auto 0.0 % [facility] nRBC Abs Auto 0.000 0.000 - 0.000 x10(3)/mcL [facility] Blood specimen (specimen) 05/04/2020 5:18 AM EDT 05/04/2020 5:40 AM EDT Narrative Resulting Agency Comment Spec In Lab Davon Leung MD HEMATOLOGY ORDERABLE S Performing Organization Address City/[facility]/ZIP Co de Phone Number [facility] [place] [address] * Magnesium (05/04/2020 5:18 AM EDT) Magnesium 0.97 0.69 - 1.07 mmol/L [facility] Blood specimen (specimen) 05/04/2020 5:18 AM EDT 05/04/2020 5:40 AM EDT Narrative Resulting Agency Comment Spec In Lab Dale Dash MD CHEMISTRY ORDERABLES Performing Organization Address City/[facility]/ZIP Co de Phone Number [facility] [place] [address] * (ABNORMAL) Comprehensive metabolic panel (non-fasting) (05/04/2020 5:18 AM EDT) Glucose Lvl 151 65 - 199 mg/dL [facility] Comment:Diabetes: >=200 mg/d L plus symptoms BUN 33(H) 8 - 18 mg/dL [facility] Creatinine 0.92 0.70 - 1.20 mg/dL [facility] Sodium 136 135 - 145 mmol/L [facility] Potassium 4.3 3.5 - 5.0 mmol/L [facility] Comment: Please note: ??Patients with WBC >100,000 may have falsely elevated Potassium levels. ??For accurate Potassium quantification in these patients send serum separator tube (gold top) for subsequent determinations. ??Contact the Clinical Chemistry Laboratory if there are any questions. Chloride 105 98 - 107 mmol/L [facility] CO2 20(L) 22 - 31 mmol/L [facility] Anion Gap 11 5 - 15 mmol/L [facility] Calcium 8.9 8.5 - 10.5 mg/dL [facility] Total Protein 6.0(L) 6.1 - 8.0 gm/dL [facility] Albumin 2.9(L) 3.2 - 5.2 gm/dL [facility] AST 12 0 - 30 unit/L [facility] ALT 11 0 - 30 unit/L [facility] Alk Phos 133(H) 35 - 105 unit/L [facility] Total Bilirubin 0.3 0.2 - 1.3 mg/dL [facility] Estimated GFR 59(L) >=60 mL/min/1. 73 m?? [facility] Comment: The eGFR was calculated using the CKD-EPI equation. As with all creatinine based estimates of kidney function, eGFR values calculated with the CKD-EPI equation are not accurate in patients with acute kidney failure, extremes of body mass or the acutely ill. http://[employer]/[facility]MANnkf eGFR 69 >=60 mL/min/1. 73 m?? [facility] Comment: The eGFR was calculated using the CKD-EPI equation. As with all creatinine based estimates of kidney function, eGFR values calculated with the CKD-EPI equation are not accurate in patients with acute kidney failure, extremes of body mass or the acutely ill. http://[employer]/[facility]nkf Blood specimen (specimen) 05/04/2020 5:18 AM EDT 05/04/2020 5:40 AM EDT Narrative Resulting Agency Comment Spec In Lab Dale Dash MD CHEMISTRY ORDERABLES [facility] [place] [address] * POCT Glucose (05/04/2020 3:10 AM EDT) POC Glucose 163 65 - 199 mg/dL [facility] Comment: Supplemental ranges: <140 mg/dL before meals <180 mg/dL all other times of the day Blood specimen (specimen) 05/04/2020 3:10 AM EDT 05/04/2020 3:10 AM EDT Milagros Velazquez MD POINT OF CARE TEST O RDERATOAN Performing Organization Address [facility]/[place] Co de Phone Number [facility] [place] [address] * POCT Glucose (05/04/2020 12:07 AM EDT) POC Glucose 196 65 - 199 mg/dL [facility] Comment: Supplemental ranges: <140 mg/dL before meals <180 mg/dL all other times of the day Blood specimen (specimen) 05/04/2020 12:07 AM EDT 05/04/2020 12:07 AM EDT Milagros Velazquez MD POINT OF CARE TEST O POOLERATOAN Performing Organization Address [facility] de Phone Number [facility] [place] [place] [address] * (ABNORMAL) POCT Glucose (05/03/2020 7:53 PM EDT) POC Glucose 214(H) 65 - 199 mg/dL [facility] Comment: Supplemental ranges: <140 mg/dL before meals <180 mg/dL all other times of the day Blood specimen (specimen) 05/03/2020 7:53 PM EDT 05/03/2020 7:53 PM EDT Milagros Velazquez MD POINT OF CARE TEST O RDERATOAN Performing Organization Address [facility]/[place] Co de Phone Number [facility] [place] [place] [address] * POCT Glucose (05/03/2020 5:01 PM EDT) [facility] POC Glucose 199 65 - 199 mg/dL [facility] Comment: Supplemental ranges: <140 mg/dL before meals <180 mg/dL all other times of the day Blood specimen (specimen) 05/03/2020 5:01 PM EDT 05/03/2020 5:01 PM EDT Milagros Velazquez MD POINT OF CARE TEST O RDERABLES Performing Organization Address City/State/[place] Co de Phone Number [facility] [place] [place] [address] * (ABNORMAL) Hemogram (05/03/2020 1:49 PM EDT) [facility] WBC 11.2(H) 4.0 - 9.5 x10(3)/[facility] RBC 3.20(L) 4.00 - 5.21 x10(6)/[facility] Hemoglobin 8.7(L) 11.7 - 15.5 gm/dL [facility] Hematocrit 27.1(L) 35.7 - 45.8 % [facility] MCV 84.7 82.6 - 94.4 [facility] MCH 27.2 27.1 - 32.0 pg [facility] MCHC 32.1 31.7 - 35.0 gm/dL [facility] Platelets 428(H) 145 - 357 x10(3)/[facility] RDWSD 45.1 37.0 - 46.0 [facility] RDWCV 14.8(H) 11.5 - 14.1 % [facility] MPV 9.7 7.6 - 12.9 [facility] nRBC % Auto 0.0 % [facility] nRBC Abs Auto 0.000 0.000 - 0.000 x10(3)/[facility] Blood specimen (specimen) 05/03/2020 1:49 PM EDT 05/03/2020 1:55 PM EDT Narrative Resulting Agency Comment Spec In Lab Milagros Velazquez MD HEMATOLOGY ORDERABLE S Performing Organization Address [facility]/[place] Co de Phone Number [facility] [place] [place] [address] * POCT Glucose (05/03/2020 11:45 AM EDT) POC Glucose 155 65 - 199 mg/dL [facility] Comment: Supplemental ranges: <140 mg/dL before meals <180 mg/dL all other times of the day Blood specimen (specimen) 05/03/2020 11:45 AM EDT 05/03/2020 11:45 AM EDT Milagros Velazquez MD POINT OF CARE TEST O RDERABLES Performing Organization Address [facility] de Phone Number [facility] [place] [place] [address] * UPPER GI ENDOSCOPY (05/03/2020 9:48 AM EDT) UPPER GI ENDOSCOPY [facility] Endoscopy Procedure Date: 05/03/2020 9:48 AM ? Patient Name: Shannan Chaudhary ? Date of : 1940 ? Age: 79 ? Order #: [id number] ? Instrument Name: [id number] ? Procedure: ? Upper GI endoscopy Indications: ? Melena Providers: ? Brigtite Graf MD, Oscar Baird ? Jessica Heath, ? Car Packer, Mauro Johnson MD: ? Medicines: ? Monitored [...] POC Glucose 164 65 - 199 mg/dL [facility] Comment: Supplemental ranges: <140 mg/dL before meals <180 mg/dL all other times of the day Blood specimen (specimen) 05/03/2020 7:50 AM EDT 05/03/2020 7:50 AM EDT Milagros Velazquez MD POINT OF CARE TEST O ISAIAH [facility] [place] [address] * (ABNORMAL) Differential, Automated (05/03/2020 5:08 AM EDT) Pathologist [facility] Neutrophils % 69.6 % [facility] Neutr Abs (ANC) 9.11(H) 1.70 - 6.10 x10(3)/[facility] Lymphocytes % 19.6 % [facility] Lymphocytes Abs 2.6 0.9 - 3.2 x10(3)/[facility] Monocytes % 6.7 % [facility] Monocyte Abs 0.9 0.3 - 0.9 x10(3)/[facility] Eosinophils % 2.8 % [facility] Eosinophils Abs 0.4 0.0 - 0.4 x10(3)/[facility] Basophils % 0.8 % [facility] Basophils Abs 0.1 0.0 - 0.1 x10(3)/[facility] Immature Gran % 0.50 % [facility] Comment: Immature granulocytes(IG's)percentage and absolute count will include metamyelocytes, myelocytes, and promyelocytes. Blood smears from CBCs yielding IG's will be scanned manually for concordance. If this scan disagrees with the automated IG or if promyelocytes are noted, a manual differential will be performed. Nanci Gran Abs 0.06(H) 0.00 - 0.04 x10(3)/ L [facility] Blood specimen (specimen) 05/03/2020 5:08 AM EDT 05/03/2020 5:30 AM EDT Narrative Resulting Agency Comment Spec In Lab Davon Leung MD HEMATOLOGY ORDERABLE S [facility] [place] [place] [address] * (ABNORMAL) Hemogram (05/03/2020 5:08 AM EDT) WBC 13.1(H) 4.0 - 9.5 x10(3)/[facility] RBC 3.04(L) 4.00 - 5.21 x10(6)/[facility] Hemoglobin 8.3(L) 11.7 - 15.5 gm/dL [facility] Hematocrit 25.7(L) 35.7 - 45.8 % [facility] MCV 84.5 82.6 - 94.4 [facility] MCH 27.3 27.1 - 32.0 pg [facility] MCHC 32.3 31.7 - 35.0 gm/dL [facility] Platelets 409(H) 145 - 357 x10(3)/[facility] RDWSD 45.7 37.0 - 46.0 [facility] RDWCV 15.0(H) 11.5 - 14.1 % [facility] MPV 10.0 7.6 - 12.9 [facility] nRBC % Auto 0.0 % [facility] nRBC Abs Auto 0.000 0.000 - 0.000 x10(3)/[facility] Blood specimen (specimen) 05/03/2020 5:08 AM EDT 05/03/2020 5:30 AM EDT Narrative Resulting Agency Comment Spec In Lab Davon Leung MD HEMATOLOGY ORDERABLE S [facility] [place] [place] [address] * Magnesium (05/03/2020 5:08 AM EDT) Magnesium 0.82 0.69 - 1.07 mmol/L [facility] Blood specimen (specimen) 05/03/2020 5:08 AM EDT 05/03/2020 5:30 AM EDT Narrative Resulting Agency Comment Spec In Lab Dale Dash MD CHEMISTRY ORDERABLES [facility] [place] [place] [address] * (ABNORMAL) Comprehensive metabolic panel (non-fasting) (05/03/2020 5:08 AM EDT) Pathologist [facility] Glucose Lvl 164 65 - 199 mg/dL [facility] Comment:Diabetes: >=200 mg/d L plus symptoms BUN 30(H) 8 - 18 mg/dL [facility] Creatinine 0.82 0.70 - 1.20 mg/dL [facility] Sodium 138 135 - 145 mmol/L [facility] Potassium 4.2 3.5 - 5.0 mmol/L [facility] Comment: Please note: ??Patients with WBC >100,000 may have falsely elevated Potassium levels. ??For accurate Potassium quantification in these patients send serum separator tube (gold top) for subsequent determinations. ??Contact the Clinical Chemistry Laboratory if there are any questions. Chloride 105 98 - 107 mmol/L [facility] CO2 21(L) 22 - 31 mmol/L [facility] Anion Gap 12 5 - 15 mmol/L [facility] Calcium 9.0 8.5 - 10.5 mg/dL [facility] Total Protein 6.1 6.1 - 8.0 gm/dL [facility] Albumin 3.0(L) 3.2 - 5.2 gm/dL [facility] AST 7 0 - 30 unit/L [facility] ALT 8 0 - 30 unit/L [facility] Alk Phos 136(H) 35 - 105 unit/L [facility] Total Bilirubin 0.3 0.2 - 1.3 mg/dL [facility] Estimated GFR 68 >=60 mL/min/1. 73 m?? [facility] Comment: The eGFR was calculated using the CKD-EPI equation. As with all creatinine based estimates of kidney function, eGFR values calculated with the CKD-EPI equation are not accurate in patients with acute kidney failure, extremes of body mass or the acutely ill. http://[employer]/[facility]MANnkf eGFR 79 >=60 mL/min/1. 73 m?? [facility] Comment: The eGFR was calculated using the CKD-EPI equation. As with all creatinine based estimates of kidney function, eGFR values calculated with the CKD-EPI equation are not accurate in patients with acute kidney failure, extremes of body mass or the acutely ill. http://[employer]/DHnkf Blood specimen (specimen) 05/03/2020 5:08 AM EDT 05/03/2020 5:30 AM EDT Narrative Resulting Agency Comment Spec In Lab Dale Dash MD CHEMISTRY ORDERABLES Performing Organization Address [facility]/[place] Co de Phone Number [facility] [place] [address] * POCT Glucose (05/03/2020 4:26 AM EDT) POC Glucose 164 65 - 199 mg/dL [facility] Comment: Supplemental ranges: <140 mg/dL before meals <180 mg/dL all other times of the day Blood specimen (specimen) 05/03/2020 4:26 AM EDT 05/03/2020 4:26 AM EDT Milagros Velazquez MD POINT OF CARE TEST O RDERABLES Performing Organization Address City/[facility]/ZIP Co de Phone Number [facility] [place] [place] [address] * POCT Glucose (05/03/2020 12:12 AM EDT) [facility] POC Glucose 175 65 - 199 mg/dL [facility] Comment: Supplemental ranges: <140 mg/dL before meals <180 mg/dL all other times of the day Blood specimen (specimen) 05/03/2020 12:12 AM EDT 05/03/2020 12:12 AM EDT Milagros Velazquez MD POINT OF CARE [place] [address] * (ABNORMAL) Hemogram (05/02/2020 8:57 PM EDT) [facility] WBC 12.9(H) 4.0 - 9.5 x10(3)/[facility] RBC 3.04(L) 4.00 - 5.21 x10(6)/[facility] Hemoglobin 8.3(L) 11.7 - 15.5 gm/dL [facility] Hematocrit 25.9(L) 35.7 - 45.8 % [facility] MCV 85.2 82.6 - 94.4 [facility] MCH 27.3 27.1 - 32.0 pg [facility] MCHC 32.0 31.7 - 35.0 gm/dL [facility] Platelets 413(H) 145 - 357 x10(3)/[facility] RDWSD 45.7 37.0 - 46.0 [facility] RDWCV 14.8(H) 11.5 - 14.1 % [facility] MPV 9.7 7.6 - 12.9 [facility] nRBC % Auto 0.0 % [facility] nRBC Abs Auto 0.000 0.000 - 0.000 x10(3)/mcL [facility] Blood specimen (specimen) 05/02/2020 8:57 PM EDT 05/02/2020 9:08 PM EDT Narrative Resulting Agency Comment Spec In Lab Milagros Velazquez MD HEMATOLOGY ORDERABLE S Performing Organization Address [facility]/ZIP Co de Phone Number [facility] [place] [address] * (ABNORMAL) POCT Glucose (05/02/2020 7:52 PM EDT) POC Glucose 246(H) 65 - 199 mg/dL [facility] Comment: Supplemental ranges: <140 mg/dL before meals <180 mg/dL all other times of the day Blood specimen (specimen) 05/02/2020 7:52 PM EDT 05/02/2020 7:52 PM EDT Milagros Velazquez MD POINT OF CARE TEST O RDERATOAN Performing Organization Address [facility]/ZIP Co de Phone Number [facility] [place] [address] * (ABNORMAL) POCT Glucose (05/02/2020 4:12 PM EDT) POC Glucose 227(H) 65 - 199 mg/dL [facility] Comment: Supplemental ranges: <140 mg/dL before meals <180 mg/dL all other times of the day Blood specimen (specimen) 05/02/2020 4:12 PM EDT 05/02/2020 4:12 PM EDT Milagros Velazquez MD POINT OF CARE TEST O RDERATOAN Performing Organization Address [facility]/ZIP Co de Phone Number [facility] [place] [place] [address] * ABORH Recheck Status (05/02/2020 3:13 PM EDT) ABORH Type Recheck Completed [facility] Blood specimen (specimen) 05/02/2020 3:13 PM EDT 05/02/2020 3:17 PM EDT Narrative Resulting Agency Comment Spec In Lab Wilner Esparza MD BLOOD BANK LAB ORDER JAMIE Performing Organization Address City/[facility]/ZIP Co de Phone Number [facility] [place] [place] [address] * Antibody screen (05/02/2020 3:13 PM EDT) Ab Screen Interp Negative [facility] Expires at [id number] on: 05/05/2020 [facility] Blood specimen (specimen) 05/02/2020 3:13 PM EDT 05/02/2020 3:17 PM EDT Narrative Resulting Agency Comment Spec In Lab Wilner Esparza MD BLOOD BANK LAB ORDER JAMIE Performing Organization Address City/[facility]/[place] Co de Phone Number [facility] [place] [address] * ABO/Rh Typing (05/02/2020 3:13 PM EDT) ABORH Type O Pos [facility] Blood specimen (specimen) 05/02/2020 3:13 PM EDT 05/02/2020 3:17 PM EDT Narrative Resulting Agency Comment Spec In Lab Wilner Esparza MD BLOOD BANK LAB ORDER JAMIE Performing Organization Address City/[facility]/ZIP Co de Phone Number [facility] [place] [address] * (ABNORMAL) Hemogram (05/02/2020 3:13 PM EDT) WBC 11.8(H) 4.0 - 9.5 x10(3)/[facility] RBC 3.18(L) 4.00 - 5.21 x10(6)/[facility] Hemoglobin 8.8(L) 11.7 - 15.5 gm/dL [facility] Hematocrit 27.1(L) 35.7 - 45.8 % [facility] MCV 85.2 82.6 - 94.4 fL [facility] MCH 27.7 27.1 - 32.0 pg [facility] MCHC 32.5 31.7 - 35.0 gm/dL [facility] Platelets 420(H) 145 - 357 x10(3)/[facility] RDWSD 45.7 37.0 - 46.0 [facility] RDWCV 14.7(H) 11.5 - 14.1 % [facility] MPV 10.0 7.6 - 12.9 [facility] nRBC % Auto 0.0 % [facility] nRBC Abs Auto 0.000 0.000 - 0.000 x10(3)/[facility] Blood specimen (specimen) 05/02/2020 3:13 PM EDT 05/02/2020 3:26 PM EDT Narrative Resulting Agency Comment Spec In Lab Milagros Velazquez MD HEMATOLOGY ORDERABLE S Performing Organization Address [facility]/ZIP Co de Phone Number [facility] [place] [address] * (ABNORMAL) POCT Glucose (05/02/2020 11:32 AM EDT) POC Glucose 233(H) 65 - 199 mg/dL [facility] Comment: Supplemental ranges: <140 mg/dL before meals <180 mg/dL all other times of the day Blood specimen (specimen) 05/02/2020 11:32 AM EDT 05/02/2020 11:32 AM EDT Milagros Velazquez MD POINT OF CARE TEST O RDERABLES Performing Organization Address City/[facility]/ZIP Co de Phone Number [facility] [place] [address] * POCT Glucose (05/02/2020 7:46 AM EDT) [facility] POC Glucose 178 65 - 199 mg/dL [facility] Comment: Supplemental ranges: <140 mg/dL before meals <180 mg/dL all other times of the day Blood specimen (specimen) 05/02/2020 7:46 AM EDT 05/02/2020 7:46 AM EDT Milagros Velazquez MD POINT OF CARE TEST O RDERABLES Performing Organization Address City/[facility]/ZIP Co de Phone Number [facility] [place] [address] * pro-Brain Natriuretic Peptide (05/02/2020 6:13 AM EDT) [facility] ProBNP 248 <=450 pg/mL [facility] Blood specimen (specimen) Venous Draw / Unknown 05/02/2020 6:13 AM EDT 05/02/2020 6:41 AM EDT Narrative Resulting Agency Comment Spec In Lab Milagros Velazquez MD CHEMISTRY ORDERABLES Performing Organization Address [facility]/ZIP Co de Phone Number [facility] [place] [address] * (ABNORMAL) Differential, Automated (05/02/2020 6:13 AM EDT) [facility] Neutrophils % 71.3 % [facility] Neutr Abs (ANC) 9.88(H) 1.70 - 6.10 x10(3)/mc L [facility] Lymphocytes % 18.6 % [facility] Lymphocytes Abs 2.6 0.9 - 3.2 x10(3)/mc L [facility] Monocytes % 6.5 % [facility] Monocyte Abs 0.9 0.3 - 0.9 x10(3)/mc L [facility] Eosinophils % 2.4 % [facility] Eosinophils Abs 0.3 0.0 - 0.4 x10(3)/mc L [facility] Basophils % 0.6 % [facility] Basophils Abs 0.1 0.0 - 0.1 x10(3)/[facility] Immature Gran % 0.60 % [facility] Comment: Immature granulocytes(IG's)percentage and absolute count will include metamyelocytes, myelocytes, and promyelocytes. Blood smears from CBCs yielding IG's will be scanned manually for concordance. If this scan disagrees with the automated IG or if promyelocytes are noted, a manual differential will be performed. Nanci Gran Abs 0.09(H) 0.00 - 0.04 x10(3)/[facility] Blood specimen (specimen) 05/02/2020 6:13 AM EDT 05/02/2020 6:31 AM EDT Narrative Resulting Agency Comment Spec In Lab Davon Leung MD HEMATOLOGY ORDERABLE S Performing Organization Address City/State/[place] Co de Phone Number [facility] [place] [address] * (ABNORMAL) Hemogram (05/02/2020 6:13 AM EDT) WBC 13.9(H) 4.0 - 9.5 x10(3)/[facility] RBC 3.24(L) 4.00 - 5.21 x10(6)/[facility] Hemoglobin 8.9(L) 11.7 - 15.5 gm/dL [facility] Hematocrit 27.5(L) 35.7 - 45.8 % [facility] MCV 84.9 82.6 - 94.4 fL [facility] MCH 27.5 27.1 - 32.0 pg [facility] MCHC 32.4 31.7 - 35.0 gm/dL [facility] Platelets 405(H) 145 - 357 x10(3)/[facility] RDWSD 45.0 37.0 - 46.0 fL [facility] RDWCV 14.7(H) 11.5 - 14.1 % [facility] MPV 10.2 7.6 - 12.9 fL [facility] nRBC % Auto 0.0 % [facility] nRBC Abs Auto 0.000 0.000 - 0.000 x10(3)/mcL [facility] Blood specimen (specimen) 05/02/2020 6:13 AM EDT 05/02/2020 6:31 AM EDT Narrative Resulting Agency Comment Spec In Lab Davon Leung MD HEMATOLOGY ORDERABLE S Performing Organization Address [facility]/ZIP Co de Phone Number [facility] [place] [address] * Magnesium (05/02/2020 6:13 AM EDT) Pathologist [facility] Magnesium 0.85 0.69 - 1.07 mmol/L [facility] Blood specimen (specimen) 05/02/2020 6:13 AM EDT 05/02/2020 6:31 AM EDT Narrative Resulting Agency Comment Spec In Lab Dale Dash MD CHEMISTRY ORDERABLES Performing Organization Address [facility]/[place] Co de Phone Number [facility] [place] [address] * (ABNORMAL) Comprehensive metabolic panel (non-fasting) (05/02/2020 6:13 AM EDT) Glucose Lvl 164 65 - 199 mg/dL [facility] Comment:Diabetes: >=200 mg/d L plus symptoms BUN 28(H) 8 - 18 mg/dL [facility] Creatinine 0.78 0.70 - 1.20 mg/dL [facility] Sodium 139 135 - 145 mmol/L [facility] Potassium 4.0 3.5 - 5.0 mmol/L [facility] Comment: Please note: ??Patients with WBC >100,000 may have falsely elevated Potassium levels. ??For accurate Potassium quantification in these patients send serum separator tube (gold top) for subsequent determinations. ??Contact the Clinical Chemistry Laboratory if there are any questions. Chloride 105 98 - 107 mmol/L [facility] CO2 23 22 - 31 mmol/L [facility] Anion Gap 11 5 - 15 mmol/L [facility] Calcium 8.9 8.5 - 10.5 mg/dL [facility] Total Protein 5.9(L) 6.1 - 8.0 gm/dL [facility] Albumin 3.0(L) 3.2 - 5.2 gm/dL [facility] AST 9 0 - 30 unit/L [facility] ALT 10 0 - 30 unit/L [facility] Alk Phos 130(H) 35 - 105 unit/L [facility] Total Bilirubin 0.4 0.2 - 1.3 mg/dL [facility] Estimated GFR 72 >=60 mL/min/1. 73 m?? [facility] Comment: The eGFR was calculated using the CKD-EPI equation. As with all creatinine based estimates of kidney function, eGFR values calculated with the CKD-EPI equation are not accurate in patients with acute kidney failure, extremes of body mass or the acutely ill. [email or web address]/[facility]f eGFR 84 >=60 mL/min/1. 73 m?? [facility] Comment: The eGFR was calculated using the CKD-EPI equation. As with all creatinine based estimates of kidney function, eGFR values calculated with the CKD-EPI equation are not accurate in patients with acute kidney failure, extremes of body mass or the acutely ill. [email or web address]/[facility] Blood specimen (specimen) 05/02/2020 6:13 AM EDT 05/02/2020 6:31 AM EDT Narrative Resulting Agency Comment Spec In Lab Dale Dash MD CHEMISTRY ORDERABLES [facility] [place] [place] [address] * POCT Glucose (05/02/2020 3:20 AM EDT) POC Glucose 183 65 - 199 mg/dL [facility] Comment: Supplemental ranges: <140 mg/dL before meals <180 mg/dL all other times of the day Blood specimen (specimen) 05/02/2020 3:20 AM EDT 05/02/2020 3:20 AM EDT Milagros Velazquez MD POINT OF CARE TEST O RDERATOAN Performing Organization Address [facility] Co de Phone Number [facility] [place] [place] [address] * (ABNORMAL) POCT Glucose (05/01/2020 11:42 PM EDT) POC Glucose 224(H) 65 - 199 mg/dL [facility] Comment: Supplemental ranges: <140 mg/dL before meals <180 mg/dL all other times of the day Blood specimen (specimen) 05/01/2020 11:42 PM EDT 05/01/2020 11:42 PM EDT Mialgros Velazquez MD POINT OF CARE TEST O POOLERATOAN Performing Organization Address [facility] de Phone Number [facility] [place] [place] [address] * (ABNORMAL) POCT Glucose (05/01/2020 8:14 PM EDT) POC Glucose 202(H) 65 - 199 mg/dL [facility] Comment: Supplemental ranges: <140 mg/dL before meals <180 mg/dL all other times of the day Blood specimen (specimen) 05/01/2020 8:14 PM EDT 05/01/2020 8:14 PM EDT Milagros Velazquez MD POINT OF CARE TEST O RDERATOAN Performing Organization Address City/[facility]/ZIP Co de Phone Number [facility] [place] [place] [address] * (ABNORMAL) POCT Glucose (05/01/2020 4:51 PM EDT) POC Glucose 204(H) 65 - 199 mg/dL [facility] Comment: Supplemental ranges: <140 mg/dL before meals <180 mg/dL all other times of the day Blood specimen (specimen) 05/01/2020 4:51 PM EDT 05/01/2020 4:51 PM EDT Milagros Velazquez MD POINT OF CARE TEST O RDERATOAN Performing Organization Address [facility] de Phone Number [facility] [place] [place] [address] * (ABNORMAL) POCT Glucose (05/01/2020 11:52 AM EDT) POC Glucose 213(H) 65 - 199 mg/dL [facility] Comment: Supplemental ranges: <140 mg/dL before meals <180 mg/dL all other times of the day Blood specimen (specimen) 05/01/2020 11:52 AM EDT 05/01/2020 11:52 AM EDT Milagros Velazquez MD POINT OF CARE TEST O POOLERATOAN Performing Organization Address [facility] de Phone Number [facility] [place] [place] [address] * POCT Glucose (05/01/2020 7:40 AM EDT) POC Glucose 167 65 - 199 mg/dL [facility] Comment: Supplemental ranges: <140 mg/dL before meals <180 mg/dL all other times of the day Blood specimen (specimen) 05/01/2020 7:40 AM EDT 05/01/2020 7:40 AM EDT Dale Dash MD POINT OF CARE TEST O RDERATOAN Performing Organization Address [facility]/State/ZIP Co de Phone Number [facility] [place] [place] [address] * (ABNORMAL) Differential, Automated (05/01/2020 5:23 AM EDT) Neutrophils % 74.6 % [facility] Neutr Abs (ANC) 10.06(H) 1.70 - 6.10 x10(3)/[facility] Lymphocytes % 14.7 % [facility] Lymphocytes Abs 2.0 0.9 - 3.2 x10(3)/[facility] Monocytes % 6.9 % [facility] Monocyte Abs 0.9 0.3 - 0.9 x10(3)/[facility] Eosinophils % 2.3 % [facility] Eosinophils Abs 0.3 0.0 - 0.4 x10(3)/[facility] Basophils % 0.5 % [facility] Basophils Abs 0.1 0.0 - 0.1 x10(3)/[facility] Immature Gran % 1.00 % [facility] Comment: Immature granulocytes(IG's)percentage and absolute count will include metamyelocytes, myelocytes, and promyelocytes. Blood smears from CBCs yielding IG's will be scanned manually for concordance. If this scan disagrees with the automated IG or if promyelocytes are noted, a manual differential will be performed. Nanci Gran Abs 0.14(H) 0.00 - 0.04 x10(3)/ L [facility] Blood specimen (specimen) 05/01/2020 5:23 AM EDT 05/01/2020 5:40 AM EDT Narrative Resulting Agency Comment Spec In Lab Davon Leung MD HEMATOLOGY ORDERABLE S [facility] [place] [place] [address] * (ABNORMAL) Hemogram (05/01/2020 5:23 AM EDT) WBC 13.5(H) 4.0 - 9.5 x10(3)/[facility] RBC 3.38(L) 4.00 - 5.21 x10(6)/[facility] Hemoglobin 9.2(L) 11.7 - 15.5 gm/dL [facility] Hematocrit 28.6(L) 35.7 - 45.8 % [facility] MCV 84.6 82.6 - 94.4 fL [facility] MCH 27.2 27.1 - 32.0 pg [facility] MCHC 32.2 31.7 - 35.0 gm/dL [facility] Platelets 372(H) 145 - 357 x10(3)/[facility] RDWSD 45.1 37.0 - 46.0 fL [facility] RDWCV 14.7(H) 11.5 - 14.1 % [facility] MPV 9.9 7.6 - 12.9 fL [facility] nRBC % Auto 0.0 % [facility] nRBC Abs Auto 0.000 0.000 - 0.000 x10(3)/[facility] Blood specimen (specimen) 05/01/2020 5:23 AM EDT 05/01/2020 5:40 AM EDT Narrative Resulting Agency Comment Spec In Lab Davon Leung MD HEMATOLOGY ORDERABLE S [facility] [place] [place] [address] * Magnesium (05/01/2020 5:23 AM EDT) Magnesium 0.89 0.69 - 1.07 mmol/L [facility] Blood specimen (specimen) 05/01/2020 5:23 AM EDT 05/01/2020 5:40 AM EDT Narrative Resulting Agency Comment Spec In Lab Dale Dash MD CHEMISTRY ORDERABLES [facility] [place] [place] [address] * (ABNORMAL) Comprehensive metabolic panel (non-fasting) (05/01/2020 5:23 AM EDT) Glucose Lvl 170 65 - 199 mg/dL [facility] Comment:Diabetes: >=200 mg/d L plus symptoms BUN 29(H) 8 - 18 mg/dL [facility] Creatinine 0.77 0.70 - 1.20 mg/dL [facility] Sodium 136 135 - 145 mmol/L [facility] Potassium 4.0 3.5 - 5.0 mmol/L [facility] Comment: Please note: ??Patients with WBC >100,000 may have falsely elevated Potassium levels. ??For accurate Potassium quantification in these patients send serum separator tube (gold top) for subsequent determinations. ??Contact the Clinical Chemistry Laboratory if there are any questions. Chloride 104 98 - 107 mmol/L [facility] CO2 22 22 - 31 mmol/L [facility] Anion Gap 10 5 - 15 mmol/L [facility] Calcium 8.8 8.5 - 10.5 mg/dL [facility] Total Protein 6.1 6.1 - 8.0 gm/dL [facility] Albumin 2.9(L) 3.2 - 5.2 gm/dL [facility] AST 10 0 - 30 unit/L [facility] ALT 11 0 - 30 unit/L [facility] Alk Phos 140(H) 35 - 105 unit/L [facility] Total Bilirubin 0.4 0.2 - 1.3 mg/dL [facility] Estimated GFR 73 >=60 mL/min/1. 73 m?? [facility] Comment: The eGFR was calculated using the CKD-EPI equation. As with all creatinine based estimates of kidney function, eGFR values calculated with the CKD-EPI equation are not accurate in patients with acute kidney failure, extremes of body mass or the acutely ill. http://[employer]/[facility] eGFR 85 >=60 mL/min/1. 73 m?? [facility] Comment: The eGFR was calculated using the CKD-EPI equation. As with all creatinine based estimates of kidney function, eGFR values calculated with the CKD-EPI equation are not accurate in patients with acute kidney failure, extremes of body mass or the acutely ill. [email or web address]/[facility] Blood specimen (specimen) 05/01/2020 5:23 AM EDT 05/01/2020 5:40 AM EDT Narrative Resulting Agency Comment Spec In Lab Dale Dash MD CHEMISTRY ORDERABLES Performing Organization Address [facility] de Phone Number [facility] [place] [address] * (ABNORMAL) POCT Glucose (05/01/2020 4:07 AM EDT) POC Glucose 204(H) 65 - 199 mg/dL [facility] Comment: Supplemental ranges: <140 mg/dL before meals <180 mg/dL all other times of the day Blood specimen (specimen) 05/01/2020 4:07 AM EDT 05/01/2020 4:07 AM EDT Dale Dash MD POINT OF CARE TEST O RDERABLES Performing Organization Address [facility] Co de Phone Number [facility] [place] [address] * POCT Glucose (04/30/2020 11:31 PM EDT) POC Glucose 196 65 - 199 mg/dL [facility] Comment: Supplemental ranges: <140 mg/dL before meals <180 mg/dL all other times of the day Blood specimen (specimen) 04/30/2020 11:31 PM EDT 04/30/2020 11:31 PM EDT Dale Dash MD POINT OF CARE TEST O RDERABLES Performing Organization Address [facility] Co de Phone Number [facility] [place] [address] * (ABNORMAL) POCT Glucose (04/30/2020 8:15 PM EDT) POC Glucose 210(H) 65 - 199 mg/dL [facility] Comment: Supplemental ranges: <140 mg/dL before meals <180 mg/dL all other times of the day Blood specimen (specimen) 04/30/2020 8:15 PM EDT 04/30/2020 8:15 PM EDT Dale Dash MD POINT OF CARE TEST O POOLERATOAN Performing Organization Address [facility] Co de Phone Number [facility] [place] [address] * (ABNORMAL) POCT Glucose (04/30/2020 3:37 PM EDT) POC Glucose 200(H) 65 - 199 mg/dL [facility] Comment: Supplemental ranges: <140 mg/dL before meals <180 mg/dL all other times of the day Blood specimen (specimen) 04/30/2020 3:37 PM EDT 04/30/2020 3:37 PM EDT Dale Dash MD POINT OF CARE TEST O RDERATOAN Performing Organization Address [facility] Co de Phone Number [facility] [place] [place] [address] * (ABNORMAL) POCT Glucose (04/30/2020 11:38 AM EDT) POC Glucose 258(H) 65 - 199 mg/dL [facility] Comment: Supplemental ranges: <140 mg/dL before meals <180 mg/dL all other times of the day Blood specimen (specimen) 04/30/2020 11:38 AM EDT 04/30/2020 11:38 AM EDT Dale Dash MD POINT OF CARE TEST O RDERABLES Performing Organization Address [facility] de Phone Number [facility] [place] [place] [address] * EKG 12 Lead (04/30/2020 8:01 AM EDT) Ventricular rate 56 BPM MUSE SYSTEM Atrial Rate 56 BPM MUSE SYSTEM P-R Interval 158 ms MUSE SYSTEM QRS Duration 116 ms MUSE SYSTEM Q-T Interval 512 ms MUSE SYSTEM QTC Calculated (Bezet) 494 ms MUSE SYSTEM Calculated P [place] 18 degrees MUSE SYSTEM Calculated R [place] 9 degrees MUSE SYSTEM Calculated T [place] -21 degrees MUSE SYSTEM INTERPRETATION Sinus bradycardia Right bundle branch block Abnormal ECG When compared with ECG of 21-APR-2020 18:47, Vent. rate has decreased BY ??41 BPM Left axis deviation is no longer Present I personally reviewed the tracing and edited the fellows interpretation Confirmed by fellow Ross Sood ([id number]) on 04/30/2020 10:25:30 AM Confirmed by MD Pandya Stanislav ([id number]) on 04/30/2020 4:45:51 PM MUSE SYSTEM 04/30/2020 8:01 AM EDT 04/30/2020 4:45 PM EDT Dale Dash MD ECG ORDERABLES Performing Organization Address [facility] Phone Number MUSE SYSTEM * POCT Glucose (04/30/2020 7:18 AM EDT) Pathologist [facility] POC Glucose 166 65 - 199 mg/dL [facility] Comment: Supplemental ranges: <140 mg/dL before meals <180 mg/dL all other times of the day Blood specimen (specimen) 04/30/2020 7:18 AM EDT 04/30/2020 7:18 AM EDT Dale Dash MD POINT OF CARE TEST O RDERABLES Performing Organization Address [facility] Co de Phone Number [facility] [place] [address] * (ABNORMAL) Differential, Automated (04/30/2020 6:36 AM EDT) Neutrophils % 75.5 % [facility] Neutr Abs (ANC) 13.00(H) 1.70 - 6.10 x10(3)/[facility] Lymphocytes % 12.6 % [facility] Lymphocytes Abs 2.2 0.9 - 3.2 x10(3)/[facility] Monocytes % 7.6 % [facility] Monocyte Abs 1.3(H) 0.3 - 0.9 x10(3)/[facility] Eosinophils % 2.6 % [facility] Eosinophils Abs 0.4 0.0 - 0.4 x10(3)/[facility] Basophils % 0.5 % [facility] Basophils Abs 0.1 0.0 - 0.1 x10(3)/[facility] Immature Gran % 1.20 % [facility] Comment: Immature granulocytes(IG's)percentage and absolute count will include metamyelocytes, myelocytes, and promyelocytes. Blood smears from CBCs yielding IG's will be scanned manually for concordance. If this scan disagrees with the automated IG or if promyelocytes are noted, a manual differential will be performed. Nanci Gran Abs 0.20(H) 0.00 - 0.04 x10(3)/[facility] Blood specimen (specimen) 04/30/2020 6:36 AM EDT 04/30/2020 6:44 AM EDT Narrative Resulting Agency Comment Spec In Lab Davon Leung MD HEMATOLOGY ORDERABLE S [facility] [place] [place] [address] * (ABNORMAL) Hemogram (04/30/2020 6:36 AM EDT) WBC 17.2(H) 4.0 - 9.5 x10(3)/[facility] RBC 3.60(L) 4.00 - 5.21 x10(6)/[facility] Hemoglobin 9.7(L) 11.7 - 15.5 gm/dL [facility] Hematocrit 31.1(L) 35.7 - 45.8 % [facility] MCV 86.4 82.6 - 94.4 fL [facility] MCH 26.9(L) 27.1 - 32.0 pg [facility] MCHC 31.2(L) 31.7 - 35.0 gm/dL [facility] Platelets 375(H) 145 - 357 x10(3)/[facility] RDWSD 47.2(H) 37.0 - 46.0 [facility] RDWCV 14.9(H) 11.5 - 14.1 % [facility] MPV 9.7 7.6 - 12.9 [facility] nRBC % Auto 0.0 % [facility] nRBC Abs Auto 0.000 0.000 - 0.000 x10(3)/[facility] Blood specimen (specimen) 04/30/2020 6:36 AM EDT 04/30/2020 6:44 AM EDT Narrative Resulting Agency Comment Spec In Lab Davon Leung MD HEMATOLOGY ORDERABLE S [facility] [place] [place] [address] * Magnesium (04/30/2020 6:36 AM EDT) Magnesium 0.94 0.69 - 1.07 mmol/L [facility] Blood specimen (specimen) 04/30/2020 6:36 AM EDT 04/30/2020 6:44 AM EDT Narrative Resulting Agency Comment Spec In Lab Dale Dash MD CHEMISTRY ORDERABLES [facility] [place] [address] * (ABNORMAL) Comprehensive metabolic panel (non-fasting) (04/30/2020 6:36 AM EDT) Glucose Lvl 166 65 - 199 mg/dL [facility] Comment:Diabetes: >=200 mg/d L plus symptoms BUN 34(H) 8 - 18 mg/dL [facility] Creatinine 1.05 0.70 - 1.20 mg/dL [facility] Sodium 135 135 - 145 mmol/L [facility] Potassium 3.8 3.5 - 5.0 mmol/L [facility] Comment: Please note: ??Patients with WBC >100,000 may have falsely elevated Potassium levels. ??For accurate Potassium quantification in these patients send serum separator tube (gold top) for subsequent determinations. ??Contact the Clinical Chemistry Laboratory if there are any questions. Chloride 100 98 - 107 mmol/L [facility] CO2 22 22 - 31 mmol/L [facility] Anion Gap 13 5 - 15 mmol/L [facility] Calcium 8.5 8.5 - 10.5 mg/dL [facility] Total Protein 6.3 6.1 - 8.0 gm/dL [facility] Albumin 3.1(L) 3.2 - 5.2 gm/dL [facility] AST 14 0 - 30 unit/L [facility] ALT 12 0 - 30 unit/L [facility] Alk Phos 152(H) 35 - 105 unit/L [facility] Total Bilirubin 0.6 0.2 - 1.3 mg/dL [facility] Estimated GFR 50(L) >=60 mL/min/1. 73 m?? [facility] Comment: The eGFR was calculated using the CKD-EPI equation. As with all creatinine based estimates of kidney function, eGFR values calculated with the CKD-EPI equation are not accurate in patients with acute kidney failure, extremes of body mass or the acutely ill. http://[employer] eGFR 58(L) >=60 mL/min/1. 73 m?? [facility] Comment: The eGFR was calculated using the CKD-EPI equation. As with all creatinine based estimates of kidney function, eGFR values calculated with the CKD-EPI equation are not accurate in patients with acute kidney failure, extremes of body mass or the acutely ill. http://[employer]/[facility] Blood specimen (specimen) 04/30/2020 6:36 AM EDT 04/30/2020 6:44 AM EDT Narrative Resulting Agency Comment Spec In Lab Dale Dash MD CHEMISTRY ORDERABLES Performing Organization Address [facility] de Phone Number [facility] [place] [address] * POCT Glucose (04/30/2020 4:14 AM EDT) POC Glucose 190 65 - 199 mg/dL [facility] Comment: Supplemental ranges: <140 mg/dL before meals <180 mg/dL all other times of the day Blood specimen (specimen) 04/30/2020 4:14 AM EDT 04/30/2020 4:14 AM EDT Dale Dash MD POINT OF CARE TEST O RDERABLES Performing Organization Address [facility] Co de Phone Number [facility] [place] [address] * (ABNORMAL) POCT Glucose (04/29/2020 11:08 PM EDT) POC Glucose 218(H) 65 - 199 mg/dL [facility] Comment: Supplemental ranges: <140 mg/dL before meals <180 mg/dL all other times of the day Blood specimen (specimen) 04/29/2020 11:08 PM EDT 04/29/2020 11:08 PM EDT Dale Dash MD POINT OF CARE TEST O RDERATOAN Performing Organization Address [facility] Co de Phone Number [facility] [place] [address] * (ABNORMAL) POCT Glucose (04/29/2020 7:52 PM EDT) POC Glucose 204(H) 65 - 199 mg/dL [facility] Comment: Supplemental ranges: <140 mg/dL before meals <180 mg/dL all other times of the day Blood specimen (specimen) 04/29/2020 7:52 PM EDT 04/29/2020 7:52 PM EDT Dale Dash MD POINT OF CARE TEST O POOLERATOAN Performing Organization Address [facility] Co de Phone Number [facility] [place] [address] * POCT Glucose (04/29/2020 4:17 PM EDT) POC Glucose 165 65 - 199 mg/dL [facility] Comment: Supplemental ranges: <140 mg/dL before meals <180 mg/dL all other times of the day Blood specimen (specimen) 04/29/2020 4:17 PM EDT 04/29/2020 4:17 PM EDT Dale Dash MD POINT OF CARE TEST O POOLERATOAN Performing Organization Address [facility] Co de Phone Number [facility] [place] [address] * Blood culture (04/29/2020 3:28 PM EDT) Blood Culture No growth at 5 days. [facility] Blood specimen (specimen) STRUCTURE OF RIGHT HAND / Unknown 04/29/2020 3:28 PM EDT 04/29/2020 4:21 PM EDT Narrative Resulting Agency Comment Spec In Lab Dale Dash MD MICROBIOLOGY - BLOOD ORDERABLES Performing Organization Address [facility] Co de Phone Number [facility] [place] [address] * Blood culture (04/29/2020 3:28 PM EDT) Blood Culture No growth at 5 days. [facility] Blood specimen (specimen) STRUCTURE OF LEFT FOREARM / Unknown 04/29/2020 3:28 PM EDT 04/29/2020 4:21 PM EDT Comment:#1 Narrative Resulting Agency Comment Spec In Lab Dale Dash MD MICROBIOLOGY - BLOOD ORDERABLES Performing Organization Address [facility] Co de Phone Number [facility] [place] [address] * (ABNORMAL) POCT Glucose (04/29/2020 11:55 AM EDT) POC Glucose 227(H) 65 - 199 mg/dL [facility] Comment: Supplemental ranges: <140 mg/dL before meals <180 mg/dL all other times of the day Blood specimen (specimen) 04/29/2020 11:55 AM EDT 04/29/2020 11:55 AM EDT Dale Dash MD POINT OF CARE TEST O RDERATOAN Performing Organization Address [facility] de Phone Number [facility] [place] [address] * POCT Glucose (04/29/2020 7:38 AM EDT) POC Glucose 125 65 - 199 mg/dL [facility] Comment: Supplemental ranges: <140 mg/dL before meals <180 mg/dL all other times of the day Blood specimen (specimen) 04/29/2020 7:38 AM EDT 04/29/2020 7:38 AM EDT Dale Dash MD POINT OF CARE TEST O RDROBIN Performing Organization Address [facility]/ZIP Co de Phone Number [facility] [place] [address] * (ABNORMAL) Differential, Automated (04/29/2020 4:17 AM EDT) Neutrophils % 78.6 % [facility] Neutr Abs (ANC) 14.16(H) 1.70 - 6.10 x10(3)/[facility] LABORATORY Lymphocytes % 10.5 % [facility] Lymphocytes Abs 1.9 0.9 - 3.2 x10(3)/[facility] LABORATORY Monocytes % 6.4 % [facility] Monocyte Abs 1.2(H) 0.3 - 0.9 x10(3)/[facility] LABORATORY Eosinophils % 2.1 % [facility] Eosinophils Abs 0.4 0.0 - 0.4 x10(3)/[facility] LABORATORY Basophils % 0.6 % [facility] Basophils Abs 0.1 0.0 - 0.1 x10(3)/[facility] LABORATORY Immature Gran % 1.80 % [facility] Comment: Immature granulocytes(IG's)percentage and absolute count will include metamyelocytes, myelocytes, and promyelocytes. Blood smears from CBCs yielding IG's will be scanned manually for concordance. If this scan disagrees with the automated IG or if promyelocytes are noted, a manual differential will be performed. Nanci Gran Abs 0.32(H) 0.00 - 0.04 x10(3)/[facility] LABORATORY Blood specimen (specimen) 04/29/2020 4:17 AM EDT 04/29/2020 4:47 AM EDT Narrative Resulting Agency Comment Spec In Lab Davon Leung MD HEMATOLOGY ORDERABLE S [facility] [place] [address] * (ABNORMAL) Hemogram (04/29/2020 4:17 AM EDT) WBC 18.0(H) 4.0 - 9.5 x10(3)/[facility] LABORATORY RBC 3.63(L) 4.00 - 5.21 x10(6)/[facility] LABORATORY Hemoglobin 9.8(L) 11.7 - 15.5 gm/dL [facility] Hematocrit 30.1(L) 35.7 - 45.8 % [facility] MCV 82.9 82.6 - 94.4 fL [facility] MCH 27.0(L) 27.1 - 32.0 pg [facility] MCHC 32.6 31.7 - 35.0 gm/dL [facility] Platelets 397(H) 145 - 357 x10(3)/[facility] LABORATORY RDWSD 44.8 37.0 - 46.0 [facility] LABORATORY RDWCV 14.8(H) 11.5 - 14.1 % [facility] MPV 9.7 7.6 - 12.9 [facility] LABORATORY nRBC % Auto 0.0 % [facility] nRBC Abs Auto 0.000 0.000 - 0.000 x10(3)/[facility] LABORATORY Blood specimen (specimen) 04/29/2020 4:17 AM EDT 04/29/2020 4:47 AM EDT Narrative Resulting Agency Comment Spec In Lab Davon Leung MD HEMATOLOGY ORDERABLE S [facility] [place] [place] [address] * Magnesium (04/29/2020 4:17 AM EDT) Pathologist [facility] Magnesium 0.83 0.69 - 1.07 mmol/L [facility] Blood specimen (specimen) 04/29/2020 4:17 AM EDT 04/29/2020 4:47 AM EDT Narrative Resulting Agency Comment Spec In Lab Dale Dash MD CHEMISTRY ORDERABLES [facility] [place] [address] * (ABNORMAL) Comprehensive metabolic panel (non-fasting) (04/29/2020 4:17 AM EDT) Glucose Lvl 152 65 - 199 mg/dL [facility] Comment:Diabetes: >=200 mg/d L plus symptoms BUN 28(H) 8 - 18 mg/dL [facility] Comment:result rechecked-ssd Creatinine 0.96 0.70 - 1.20 mg/dL [facility] Sodium 136 135 - 145 mmol/L [facility] Potassium 3.9 3.5 - 5.0 mmol/L [facility] Comment: Please note: ??Patients with WBC >100,000 may have falsely elevated Potassium levels. ??For accurate Potassium quantification in these patients send serum separator tube (gold top) for subsequent determinations. ??Contact the Clinical Chemistry Laboratory if there are any questions. Chloride 103 98 - 107 mmol/L [facility] CO2 22 22 - 31 mmol/L [facility] Anion Gap 11 5 - 15 mmol/L [facility] Calcium 8.5 8.5 - 10.5 mg/dL [facility] Total Protein 6.0(L) 6.1 - 8.0 gm/dL [facility] Albumin 2.8(L) 3.2 - 5.2 gm/dL [facility] AST 15 0 - 30 unit/L [facility] ALT 16 0 - 30 unit/L [facility] Alk Phos 177(H) 35 - 105 unit/L [facility] Total Bilirubin 0.5 0.2 - 1.3 mg/dL [facility] Estimated GFR 56(L) >=60 mL/min/1. 73 m?? [facility] Comment: The eGFR was calculated using the CKD-EPI equation. As with all creatinine based estimates of kidney function, eGFR values calculated with the CKD-EPI equation are not accurate in patients with acute kidney failure, extremes of body mass or the acutely ill. http://[employer]/[facility]f eGFR 65 >=60 mL/min/1. 73 m?? [facility] Comment: The eGFR was calculated using the CKD-EPI equation. As with all creatinine based estimates of kidney function, eGFR values calculated with the CKD-EPI equation are not accurate in patients with acute kidney failure, extremes of body mass or the acutely ill. http://[employer] Blood specimen (specimen) 04/29/2020 4:17 AM EDT 04/29/2020 4:47 AM EDT Narrative Resulting Agency Comment Spec In Lab Dale Dash MD CHEMISTRY ORDERABLES Performing Organization Address [facility] Co de Phone Number [facility] [place] [address] * POCT Glucose (04/29/2020 4:16 AM EDT) POC Glucose 152 65 - 199 mg/dL [facility] Comment: Supplemental ranges: <140 mg/dL before meals <180 mg/dL all other times of the day Blood specimen (specimen) 04/29/2020 4:16 AM EDT 04/29/2020 4:16 AM EDT Dale Dash MD POINT OF CARE TEST O RDERABLES Performing Organization Address [facility]/ZIP Co de Phone Number [facility] [place] [address] * POCT Glucose (04/29/2020 12:34 AM EDT) POC Glucose 171 65 - 199 mg/dL [facility] Comment: Supplemental ranges: <140 mg/dL before meals <180 mg/dL all other times of the day Blood specimen (specimen) 04/29/2020 12:34 AM EDT 04/29/2020 12:34 AM EDT Dale Dash MD POINT OF CARE TEST O ISAIAH Performing Organization Address [facility] Co de Phone Number [facility] [place] [address] * (ABNORMAL) POCT Glucose (04/28/2020 8:36 PM EDT) POC Glucose 205(H) 65 - 199 mg/dL [facility] Comment: Supplemental ranges: <140 mg/dL before meals <180 mg/dL all other times of the day Blood specimen (specimen) 04/28/2020 8:36 PM EDT 04/28/2020 8:36 PM EDT Dale Dash MD POINT OF CARE TEST O ISAIAH Performing Organization Address [facility] de Phone Number [facility] [place] [address] * POCT Glucose (04/28/2020 4:05 PM EDT) POC Glucose 185 65 - 199 mg/dL [facility] Comment: Supplemental ranges: <140 mg/dL before meals <180 mg/dL all other times of the day Blood specimen (specimen) 04/28/2020 4:05 PM EDT 04/28/2020 4:05 PM EDT Abiodun Chun MD POINT OF CARE TEST O RDERABLES Performing Organization Address [facility] Co de Phone Number [facility] [place] [address] * POCT Glucose (04/28/2020 12:47 PM EDT) POC Glucose 135 65 - 199 mg/dL [facility] Comment: Supplemental ranges: <140 mg/dL before meals <180 mg/dL all other times of the day Blood specimen (specimen) 04/28/2020 12:47 PM EDT 04/28/2020 12:47 PM EDT Abiodun Chun MD POINT OF CARE TEST O RDROBIN Performing Organization Address [facility] Co de Phone Number [facility] [place] [address] * POCT Glucose (04/28/2020 10:23 AM EDT) POC Glucose 150 65 - 199 mg/dL [facility] Comment: Supplemental ranges: <140 mg/dL before meals <180 mg/dL all other times of the day Blood specimen (specimen) 04/28/2020 10:23 AM EDT 04/28/2020 10:23 AM EDT Abiodun Chun MD POINT OF CARE TEST O ISAIAH Performing Organization Address [facility] de Phone Number [facility] [place] [address] * CT Guided Drain Peritoneal (04/28/2020 10:20 [...] approximately 2-3 weeks (already ordered by IR). [employer] Operator(s): Resident/Fellow: None. Attending: Dr. Jos Collins Procedure/Teaching Attestation: ??I performed the procedure. Moderate Sedation Attestation: I was present during the intra-service time as documented by IR nurse. Thank you for letting us participate in the care of this patient. For questions regarding this report, please contact the number below. ? Electronically signed by: Jos Collins [facility] ([phone]), at 04/28/2020 10:42 AM Narrative 04/28/2020 10:42 AM EDT RADIOLOGY PROCEDURE [...] in approximately 2-3 weeks (alreadyordered by IR). [employer] Operator(s): Resident/Fellow: None. Attending: Dr. Jos Collins Procedure/Teaching Attestation: I performed the procedure. Moderate Sedation Attestation: I was present during the intra-service timeas documented by IR nurse. Thank you for letting us participate in the care of this patient. Forquestions regarding this report, please contact the number below. Electronically signed by: Jos Collins [facility]([phone]), at 04/28/2020 10:42 AM Abiodun Chun MD IMG CT ORDERABLES * Anaerobic Culture (04/28/2020 10:00 AM EDT) Anaerobic Culture No anaerobic organisms isolated [facility] Fluid specimen (specimen) 04/28/2020 10:00 AM EDT 04/28/2020 10:50 AM EDT Comment:ARABELLA-HEPATIC ABSCESS S, CT GUIDED DRAIN PLACEMENT Narrative Resulting Agency Comment Spec In Lab Jeevan Black MD MICROBIOLOGY - [facility] AL ORDERABLES [facility] [place] [address] * (ABNORMAL) Body Fluid Culture, Aerobic (04/28/2020 10:00 AM EDT) Body Fluid Culture One colony of Raoultella ornithinolytica (Klebsiella ornithinolytica)(A ) [facility] Gram Stain Few Neutrophils seen No microorganisms seen. (A) [facility] Organism Raoultella ornithinolytica (Klebsiella ornithinolytica)(A ) [facility] Fluid specimen (specimen) 04/28/2020 [...] - GENER AL ORDERABLES Performing Organization Address City/[facility]/ZIP Co de Phone Number [facility] [place] [address] * POCT Glucose (04/28/2020 8:10 AM EDT) POC Glucose 134 65 - 199 mg/dL [facility] Comment: Supplemental ranges: <140 mg/dL before meals <180 mg/dL all other times of the day Blood specimen (specimen) 04/28/2020 8:10 AM EDT 04/28/2020 8:10 AM EDT Abiodun Chun MD POINT OF CARE TEST O RDERABLES Performing Organization Address City/[facility]/ZIP Co de Phone Number [facility] [place] [address] * (ABNORMAL) pro-Brain Natriuretic Peptide (04/28/2020 4:05 AM EDT) ProBNP 852(H) <=450 pg/mL [facility] Blood specimen (specimen) Venous Draw / Unknown 04/28/2020 4:05 AM EDT 04/28/2020 4:25 AM EDT Narrative Resulting Agency Comment Spec In Lab Hong Levi MD CHEMISTRY ORDERABLES [facility] [place] [address] * (ABNORMAL) Differential, Automated (04/28/2020 4:05 AM EDT) Pathologist [facility] Neutrophils % 71.3 % [facility] Neutr Abs (ANC) 10.55(H) 1.70 - 6.10 x10(3)/ L [facility] Lymphocytes % 17.3 % [facility] Lymphocytes Abs 2.6 0.9 - 3.2 x10(3)/ L [facility] Monocytes % 5.5 % [facility] Monocyte Abs 0.8 0.3 - 0.9 x10(3)/ L [facility] Eosinophils % 2.8 % [facility] Eosinophils Abs 0.4 0.0 - 0.4 x10(3)/ L [facility] Basophils % 0.5 % [facility] Basophils Abs 0.1 0.0 - 0.1 x10(3)/ L [facility] Immature Gran % 2.60 % [facility] Comment: Immature granulocytes(IG's)percentage and absolute count will include metamyelocytes, myelocytes, and promyelocytes. Blood smears from CBCs yielding IG's will be scanned manually for concordance. If this scan disagrees with the automated IG or if promyelocytes are noted, a manual differential will be performed. Nanci Gran Abs 0.39(H) 0.00 - 0.04 x10(3)/mc L [facility] Blood specimen (specimen) 04/28/2020 4:05 AM EDT 04/28/2020 4:23 AM EDT Narrative Resulting Agency Comment Spec In Lab Hong Levi MD HEMATOLOGY ORDERABLE S [facility] [place] [address] * (ABNORMAL) Hemogram (04/28/2020 4:05 AM EDT) WBC 14.8(H) 4.0 - 9.5 x10(3)/[facility] LABORATORY RBC 3.90(L) 4.00 - 5.21 x10(6)/[facility] LABORATORY Hemoglobin 10.5(L) 11.7 - 15.5 gm/dL [facility] Hematocrit 32.5(L) 35.7 - 45.8 % [facility] MCV 83.3 82.6 - 94.4 fL [facility] MCH 26.9(L) 27.1 - 32.0 pg [facility] MCHC 32.3 31.7 - 35.0 gm/dL [facility] Platelets 421(H) 145 - 357 x10(3)/[facility] LABORATORY RDWSD 44.7 37.0 - 46.0 [facility] LABORATORY RDWCV 14.6(H) 11.5 - 14.1 % [facility] MPV 9.6 7.6 - 12.9 [facility] LABORATORY nRBC % Auto 0.0 % [facility] nRBC Abs Auto 0.000 0.000 - 0.000 x10(3)/[facility] LABORATORY Blood specimen (specimen) 04/28/2020 4:05 AM EDT 04/28/2020 4:23 AM EDT Narrative Resulting Agency Comment Spec In Lab Hong Levi MD HEMATOLOGY ORDERABLE S [facility] [place] [place] [address] * Magnesium (04/28/2020 4:05 AM EDT) Pathologist [facility] Magnesium 0.78 0.69 - 1.07 mmol/L [facility] Blood specimen (specimen) 04/28/2020 4:05 AM EDT 04/28/2020 4:23 AM EDT Narrative Resulting Agency Comment Spec In Lab Dale Dash MD CHEMISTRY ORDERABLES Performing Organization Address City/[facility]/[place] Co de Phone Number [facility] [place] [address] * (ABNORMAL) Comprehensive metabolic panel (non-fasting) (04/28/2020 4:05 AM EDT) [facility] Glucose Lvl 149 65 - 199 mg/dL [facility] Comment:Diabetes: >=200 mg/d L plus symptoms BUN 16 8 - 18 mg/dL [facility] Creatinine 0.80 0.70 - 1.20 mg/dL [facility] Sodium 137 135 - 145 mmol/L [facility] Potassium 3.5 3.5 - 5.0 mmol/L [facility] Comment: Please note: ??Patients with WBC >100,000 may have falsely elevated Potassium levels. ??For accurate Potassium quantification in these patients send serum separator tube (gold top) for subsequent determinations. ??Contact the Clinical Chemistry Laboratory if there are any questions. Chloride 105 98 - 107 mmol/L [facility] CO2 21(L) 22 - 31 mmol/L [facility] Anion Gap 11 5 - 15 mmol/L [facility] Calcium 8.7 8.5 - 10.5 mg/dL [facility] Total Protein 6.3 6.1 - 8.0 gm/dL [facility] Albumin 3.0(L) 3.2 - 5.2 gm/dL [facility] AST 12 0 - 30 unit/L [facility] ALT 12 0 - 30 unit/L [facility] Alk Phos 201(H) 35 - 105 unit/L [facility] Total Bilirubin 0.4 0.2 - 1.3 mg/dL [facility] Estimated GFR 70 >=60 mL/min/1. 73 m?? [facility] Comment: The eGFR was calculated using the CKD-EPI equation. As with all creatinine based estimates of kidney function, eGFR values calculated with the CKD-EPI equation are not accurate in patients with acute kidney failure, extremes of body mass or the acutely ill. http://[employer]/[facility] eGFR 81 >=60 mL/min/1. 73 m?? [facility] Comment: The eGFR was calculated using the CKD-EPI equation. As with all creatinine based estimates of kidney function, eGFR values calculated with the CKD-EPI equation are not accurate in patients with acute kidney failure, extremes of body mass or the acutely ill. http://[employer]/[facility]f Blood specimen (specimen) 04/28/2020 4:05 AM EDT 04/28/2020 4:23 AM EDT Narrative Resulting Agency Comment Spec In Lab Dale Dash MD CHEMISTRY ORDERABLES Performing Organization Address City/[facility] Phone Number [facility] [place] [address] * POCT Glucose (04/28/2020 3:28 AM EDT) POC Glucose 161 65 - 199 mg/dL [facility] Comment: Supplemental ranges: <140 mg/dL before meals <180 mg/dL all other times of the day Blood specimen (specimen) 04/28/2020 3:28 AM EDT 04/28/2020 3:28 AM EDT Abiodun Chun MD POINT OF CARE TEST O RDERABLES Performing Organization Address City/State/[place] Co de Phone Number [facility] [place] [address] * (ABNORMAL) POCT Glucose (04/27/2020 11:33 PM EDT) POC Glucose 205(H) 65 - 199 mg/dL [facility] Comment: Supplemental ranges: <140 mg/dL before meals <180 mg/dL all other times of the day Blood specimen (specimen) 04/27/2020 11:33 PM EDT 04/27/2020 11:33 PM EDT Abiodun Chun MD POINT OF CARE TEST O RDERABLES Performing Organization Address [facility] Co de Phone Number [facility] [place] [address] * (ABNORMAL) POCT Glucose (04/27/2020 8:03 PM EDT) POC Glucose 274(H) 65 - 199 mg/dL [facility] Comment: Supplemental ranges: <140 mg/dL before meals <180 mg/dL all other times of the day Blood specimen (specimen) 04/27/2020 8:03 PM EDT 04/27/2020 8:03 PM EDT Abiodun Chun MD POINT OF CARE TEST O RDERABLES Performing Organization Address [facility] de Phone Number [facility] [place] [address] * POCT Glucose (04/27/2020 4:23 PM EDT) POC Glucose 155 65 - 199 mg/dL [facility] Comment: Supplemental ranges: <140 mg/dL before meals <180 mg/dL all other times of the day Blood specimen (specimen) 04/27/2020 4:23 PM EDT 04/27/2020 4:23 PM EDT Abiodun Chun MD POINT OF CARE TEST O RDERABLES [facility] [place] [address] * CT Abdomen & Pelvis w Contrast [...] below. ? Electronically signed by: Logan Sanabria [facility] ([phone]), at 04/27/2020 4:29 PM Narrative 04/27/2020 4:29 [...] administration of contrast. Administered 96.0 ml of YGEAARAIC065.00 mg/ml. Oral contrast was administered. COMPARISON: 04/18/2020 [...] POC Glucose 192 65 - 199 mg/dL [facility] Comment: Supplemental ranges: <140 mg/dL before meals <180 mg/dL all other times of the day Blood specimen (specimen) 04/27/2020 11:59 AM EDT 04/27/2020 11:59 AM EDT Abiodun Chun MD POINT OF CARE TEST O RDERABLES [facility] [place] [address] * XR Chest One View (04/27/2020 10:47 AM EDT) Anatomical Region Laterality Modality Chest N/A Digital Radiogra phy Impressions 04/27/2020 11:51 AM EDT Improved subpulmonic right-sided pleural effusion. Equivocal trace left effusion. I have personally reviewed the image(s) and the resident's interpretation and agree with the findings, Matye Pollack at 04/27/2020 11:51 AM Thank you for letting us participate in the care of this patient. For questions regarding this report, please contact the number below. ? Electronically signed by: Mayte Pollack [facility] ([phone]), at 04/27/2020 11:51 AM Narrative 04/27/2020 11:51 [...] number below. Electronically signed by: Mayte Pollack [facility]([phone]), at 04/27/2020 11:51 AM Abiodun Chun MD IMG DX ORDERABLES * POCT Glucose (04/27/2020 7:43 AM EDT) Pathologist [facility] POC Glucose 138 65 - 199 mg/dL [facility] Comment: Supplemental ranges: <140 mg/dL before meals <180 mg/dL all other times of the day Blood specimen (specimen) 04/27/2020 7:43 AM EDT 04/27/2020 7:43 AM EDT Abiodun Chun MD POINT OF CARE TEST O RDERABLES [facility] [place] [address] * (ABNORMAL) Differential, Automated (04/27/2020 4:41 AM EDT) Neutrophils % 70.7 % [facility] Neutr Abs (ANC) 10.64(H) 1.70 - 6.10 x10(3)/mc L [facility] Lymphocytes % 14.9 % [facility] Lymphocytes Abs 2.2 0.9 - 3.2 x10(3)/mc L [facility] Monocytes % 6.2 % [facility] Monocyte Abs 0.9 0.3 - 0.9 x10(3)/[facility] LABORATORY Eosinophils % 3.3 % [facility] Eosinophils Abs 0.5(H) 0.0 - 0.4 x10(3)/[facility] Basophils % 0.5 % [facility] Basophils Abs 0.1 0.0 - 0.1 x10(3)/[facility] Immature Gran % 4.40 % [facility] Comment: Immature granulocytes(IG's)percentage and absolute count will include metamyelocytes, myelocytes, and promyelocytes. Blood smears from CBCs yielding IG's will be scanned manually for concordance. If this scan disagrees with the automated IG or if promyelocytes are noted, a manual differential will be performed. Nanci Gran Abs 0.67(H) 0.00 - 0.04 x10(3)/[facility] Blood specimen (specimen) 04/27/2020 4:41 AM EDT 04/27/2020 4:54 AM EDT Narrative Resulting Agency Comment Spec In Lab Hong Lvei MD HEMATOLOGY ORDERABLE S [facility] [place] [address] * (ABNORMAL) Hemogram (04/27/2020 4:41 AM EDT) WBC 15.1(H) 4.0 - 9.5 x10(3)/[facility] LABORATORY RBC 3.83(L) 4.00 - 5.21 x10(6)/[facility] Hemoglobin 10.3(L) 11.7 - 15.5 gm/dL [facility] Hematocrit 32.1(L) 35.7 - 45.8 % [facility] MCV 83.8 82.6 - 94.4 fL [facility] MCH 26.9(L) 27.1 - 32.0 pg [facility] MCHC 32.1 31.7 - 35.0 gm/dL [facility] Platelets 422(H) 145 - 357 x10(3)/[facility] LABORATORY RDWSD 44.9 37.0 - 46.0 [facility] RDWCV 14.8(H) 11.5 - 14.1 % [facility] MPV 9.6 7.6 - 12.9 [facility] nRBC % Auto 0.1 % [facility] nRBC Abs Auto 0.020(H) 0.000 - 0.000 x10(3)/[facility] Blood specimen (specimen) 04/27/2020 4:41 AM EDT 04/27/2020 4:54 AM EDT Narrative Resulting Agency Comment Spec In Lab Hong Levi MD HEMATOLOGY ORDERABLE S Performing Organization Address City/[facility]/ZIP Co de Phone Number [facility] [place] [address] * Magnesium (04/27/2020 4:41 AM EDT) Pathologist [facility] Magnesium 0.76 0.69 - 1.07 mmol/L [facility] Blood specimen (specimen) 04/27/2020 4:41 AM EDT 04/27/2020 4:54 AM EDT Narrative Resulting Agency Comment Spec In Lab Dale Dash MD CHEMISTRY ORDERABLES Performing Organization Address City/[facility]/ZIP Co de Phone Number [facility] [place] [address] * (ABNORMAL) Comprehensive metabolic panel (non-fasting) (04/27/2020 4:41 AM EDT) [facility] Glucose Lvl 167 65 - 199 mg/dL [facility] Comment:Diabetes: >=200 mg/d L plus symptoms BUN 12 8 - 18 mg/dL [facility] Creatinine 0.63(L) 0.70 - 1.20 mg/dL [facility] Sodium 138 135 - 145 mmol/L [facility] Potassium 3.5 3.5 - 5.0 mmol/L [facility] Comment: Please note: ??Patients with WBC >100,000 may have falsely elevated Potassium levels. ??For accurate Potassium quantification in these patients send serum separator tube (gold top) for subsequent determinations. ??Contact the Clinical Chemistry Laboratory if there are any questions. Chloride 103 98 - 107 mmol/L [facility] CO2 23 22 - 31 mmol/L [facility] Anion Gap 12 5 - 15 mmol/L [facility] Calcium 8.7 8.5 - 10.5 mg/dL [facility] Total Protein 6.2 6.1 - 8.0 gm/dL [facility] Albumin 2.9(L) 3.2 - 5.2 gm/dL [facility] AST 12 0 - 30 unit/L [facility] ALT 13 0 - 30 unit/L [facility] Alk Phos 230(H) 35 - 105 unit/L [facility] Total Bilirubin 0.5 0.2 - 1.3 mg/dL [facility] Estimated GFR 85 >=60 mL/min/1. 73 m?? [facility] Comment: The eGFR was calculated using the CKD-EPI equation. As with all creatinine based estimates of kidney function, eGFR values calculated with the CKD-EPI equation are not accurate in patients with acute kidney failure, extremes of body mass or the acutely ill. http://[employer]/[facility] eGFR 99 >=60 mL/min/1. 73 m?? [facility] Comment: The eGFR was calculated using the CKD-EPI equation. As with all creatinine based estimates of kidney function, eGFR values calculated with the CKD-EPI equation are not accurate in patients with acute kidney failure, extremes of body mass or the acutely ill. http://[employer]/[facility] Blood specimen (specimen) 04/27/2020 4:41 AM EDT 04/27/2020 4:54 AM EDT Narrative Resulting Agency Comment Spec In Lab Dale Dash MD CHEMISTRY ORDERABLES Performing Organization Address [facility]/[place] Co de Phone Number [facility] [place] [place] [address] * POCT Glucose (04/27/2020 4:12 AM EDT) POC Glucose 170 65 - 199 mg/dL [facility] Comment: Supplemental ranges: <140 mg/dL before meals <180 mg/dL all other times of the day Blood specimen (specimen) 04/27/2020 4:12 AM EDT 04/27/2020 4:12 AM EDT Abiodun Chun MD POINT OF CARE TEST O RDERABLES Performing Organization Address [facility]/[place] Co de Phone Number [facility] [place] [address] * POCT Glucose (04/27/2020 12:14 AM EDT) POC Glucose 187 65 - 199 mg/dL [facility] Comment: Supplemental ranges: <140 mg/dL before meals <180 mg/dL all other times of the day Blood specimen (specimen) 04/27/2020 12:14 AM EDT 04/27/2020 12:14 AM EDT Abiodun Chun MD POINT OF CARE TEST O RDERATOAN Performing Organization Address [facility]/[place] Co de Phone Number [facility] [place] [address] * POCT Glucose (04/26/2020 8:19 PM EDT) POC Glucose 186 65 - 199 mg/dL [facility] Comment: Supplemental ranges: <140 mg/dL before meals <180 mg/dL all other times of the day Blood specimen (specimen) 04/26/2020 8:19 PM EDT 04/26/2020 8:19 PM EDT Abiodun Chun MD POINT OF CARE TEST O RDERABLES Performing Organization Address [facility]/[place] Co de Phone Number [facility] [place] [place] [address] * POCT Glucose (04/26/2020 4:52 PM EDT) POC Glucose 162 65 - 199 mg/dL [facility] Comment: Supplemental ranges: <140 mg/dL before meals <180 mg/dL all other times of the day Blood specimen (specimen) 04/26/2020 4:52 PM EDT 04/26/2020 4:52 PM EDT Abiodun Chun MD POINT OF CARE TEST O RDERABLES Performing Organization Address [facility] de Phone Number [facility] [place] [place] [address] * (ABNORMAL) POCT Glucose (04/26/2020 11:50 AM EDT) POC Glucose 215(H) 65 - 199 mg/dL [facility] Comment: Supplemental ranges: <140 mg/dL before meals <180 mg/dL all other times of the day Blood specimen (specimen) 04/26/2020 11:50 AM EDT 04/26/2020 11:50 AM EDT Abiodun Chun MD POINT OF CARE TEST O RDERABLES Performing Organization Address [facility]/[place] Co de Phone Number [facility] [place] [place] [address] * POCT Glucose (04/26/2020 7:43 AM EDT) POC Glucose 175 65 - 199 mg/dL [facility] Comment: Supplemental ranges: <140 mg/dL before meals <180 mg/dL all other times of the day Blood specimen (specimen) 04/26/2020 7:43 AM EDT 04/26/2020 7:43 AM EDT Abiodun Chun MD POINT OF CARE TEST O RDERABLES [facility] [place] [place] [address] * POCT Glucose (04/26/2020 5:07 AM EDT) Pathologist [facility] POC Glucose 163 65 - 199 mg/dL [facility] Comment: Supplemental ranges: <140 mg/dL before meals <180 mg/dL all other times of the day Blood specimen (specimen) 04/26/2020 5:07 AM EDT 04/26/2020 5:07 AM EDT Abiodun Chun MD POINT OF CARE TEST O ISAIAH [facility] [place] [address] * (ABNORMAL) Differential, Automated (04/26/2020 4:42 AM EDT) Pathologist [facility] Neutrophils % 66.7 % [facility] Neutr Abs (ANC) 9.28(H) 1.70 - 6.10 x10(3)/mc L [facility] Lymphocytes % 16.8 % [facility] Lymphocytes Abs 2.3 0.9 - 3.2 x10(3)/mc L [facility] Monocytes % 5.7 % [facility] Monocyte Abs 0.8 0.3 - 0.9 x10(3)/mc L [facility] Eosinophils % 3.7 % [facility] Eosinophils Abs 0.5(H) 0.0 - 0.4 x10(3)/mc L [facility] Basophils % 0.8 % [facility] Basophils Abs 0.1 0.0 - 0.1 x10(3)/mc L [facility] Immature Gran % 6.30 % [facility] Comment: Immature granulocytes(IG's)percentage and absolute count will include metamyelocytes, myelocytes, and promyelocytes. Blood smears from CBCs yielding IG's will be scanned manually for concordance. If this scan disagrees with the automated IG or if promyelocytes are noted, a manual differential will be performed. Nanci Gran Abs 0.88(H) 0.00 - 0.04 x10(3)/mc L [facility] Blood specimen (specimen) 04/26/2020 4:42 AM EDT 04/26/2020 4:54 AM EDT Narrative Resulting Agency Comment Spec In Lab Hong Levi MD HEMATOLOGY ORDERABLE S [facility] [place] [place] [address] * (ABNORMAL) Hemogram (04/26/2020 4:42 AM EDT) WBC 13.9(H) 4.0 - 9.5 x10(3)/[facility] RBC 3.72(L) 4.00 - 5.21 x10(6)/[facility] Hemoglobin 10.0(L) 11.7 - 15.5 gm/dL [facility] Hematocrit 31.5(L) 35.7 - 45.8 % [facility] MCV 84.7 82.6 - 94.4 [facility] MCH 26.9(L) 27.1 - 32.0 pg [facility] MCHC 31.7 31.7 - 35.0 gm/dL [facility] Platelets 398(H) 145 - 357 x10(3)/[facility] RDWSD 46.0 37.0 - 46.0 [facility] RDWCV 14.9(H) 11.5 - 14.1 % [facility] MPV 9.2 7.6 - 12.9 [facility] nRBC % Auto 0.2 % [facility] nRBC Abs Auto 0.030(H) 0.000 - 0.000 x10(3)/mcL [facility] Blood specimen (specimen) 04/26/2020 4:42 AM EDT 04/26/2020 4:54 AM EDT Narrative Resulting Agency Comment Spec In Lab Hong Levi MD HEMATOLOGY ORDERABLE S Performing Organization Address [facility]/[place] Co de Phone Number [facility] [place] [address] * Magnesium (04/26/2020 4:42 AM EDT) Magnesium 0.86 0.69 - 1.07 mmol/L [facility] Blood specimen (specimen) 04/26/2020 4:42 AM EDT 04/26/2020 4:54 AM EDT Narrative Resulting Agency Comment Spec In Lab Dale Dash MD CHEMISTRY ORDERABLES Performing Organization Address [facility]/[place] Co de Phone Number [facility] [place] [address] * (ABNORMAL) Comprehensive metabolic panel (non-fasting) (04/26/2020 4:42 AM EDT) Glucose Lvl 172 65 - 199 mg/dL [facility] Comment:Diabetes: >=200 mg/d L plus symptoms BUN 14 8 - 18 mg/dL [facility] Creatinine 0.67(L) 0.70 - 1.20 mg/dL [facility] Sodium 142 135 - 145 mmol/L [facility] Potassium 3.3(L) 3.5 - 5.0 mmol/L [facility] Comment: Please note: ??Patients with WBC >100,000 may have falsely elevated Potassium levels. ??For accurate Potassium quantification in these patients send serum separator tube (gold top) for subsequent determinations. ??Contact the Clinical Chemistry Laboratory if there are any questions. Chloride 107 98 - 107 mmol/L [facility] CO2 22 22 - 31 mmol/L [facility] Anion Gap 13 5 - 15 mmol/L [facility] Calcium 8.6 8.5 - 10.5 mg/dL [facility] Total Protein 6.3 6.1 - 8.0 gm/dL [facility] Albumin 2.8(L) 3.2 - 5.2 gm/dL [facility] AST 14 0 - 30 unit/L [facility] ALT 14 0 - 30 unit/L [facility] Alk Phos 253(H) 35 - 105 unit/L [facility] Total Bilirubin 0.4 0.2 - 1.3 mg/dL [facility] Estimated GFR 84 >=60 mL/min/1. 73 m?? [facility] Comment: The eGFR was calculated using the CKD-EPI equation. As with all creatinine based estimates of kidney function, eGFR values calculated with the CKD-EPI equation are not accurate in patients with acute kidney failure, extremes of body mass or the acutely ill. http://[employer]/[facility] eGFR 97 >=60 mL/min/1. 73 m?? [facility] Comment: The eGFR was calculated using the CKD-EPI equation. As with all creatinine based estimates of kidney function, eGFR values calculated with the CKD-EPI equation are not accurate in patients with acute kidney failure, extremes of body mass or the acutely ill. http://[employer]/[facility] Blood specimen (specimen) 04/26/2020 4:42 AM EDT 04/26/2020 4:54 AM EDT Narrative Resulting Agency Comment Spec In Lab Dale Dash MD CHEMISTRY ORDERABLES [facility] [place] [place] [address] * (ABNORMAL) POCT Glucose (04/25/2020 10:39 PM EDT) POC Glucose 215(H) 65 - 199 mg/dL [facility] Comment: Supplemental ranges: <140 mg/dL before meals <180 mg/dL all other times of the day Blood specimen (specimen) 04/25/2020 10:39 PM EDT 04/25/2020 10:39 PM EDT Abiodun Chun MD POINT OF CARE TEST O RDERABLES Performing Organization Address City/[facility]/ZIP Co de Phone Number [facility] [place] [place] [address] * POCT Glucose (04/25/2020 8:54 PM EDT) POC Glucose 175 65 - 199 mg/dL [facility] Comment: Supplemental ranges: <140 mg/dL before meals <180 mg/dL all other times of the day Blood specimen (specimen) 04/25/2020 8:54 PM EDT 04/25/2020 8:54 PM EDT Abiodun Chun MD POINT OF CARE TEST O RDERABLES Performing Organization Address [facility]/ZIP Co de Phone Number [facility] [place] [address] * POCT Glucose (04/25/2020 7:43 PM EDT) POC Glucose 198 65 - 199 mg/dL [facility] Comment: Supplemental ranges: <140 mg/dL before meals <180 mg/dL all other times of the day Blood specimen (specimen) 04/25/2020 7:43 PM EDT 04/25/2020 7:43 PM EDT Abiodun Chun MD POINT OF CARE TEST O RDERABLES [facility] [place] [place] [address] * POCT Glucose (04/25/2020 5:35 PM EDT) POC Glucose 188 65 - 199 mg/dL [facility] Comment: Supplemental ranges: <140 mg/dL before meals <180 mg/dL all other times of the day Blood specimen (specimen) 04/25/2020 5:35 PM EDT 04/25/2020 5:35 PM EDT Abiodun Chun MD POINT OF CARE TEST O RDERATOAN Performing Organization Address [facility]/[place] Co de Phone Number [facility] [place] [address] * POCT Glucose (04/25/2020 12:21 PM EDT) POC Glucose 199 65 - 199 mg/dL [facility] Comment: Supplemental ranges: <140 mg/dL before meals <180 mg/dL all other times of the day Blood specimen (specimen) 04/25/2020 12:21 PM EDT 04/25/2020 12:21 PM EDT Abiodun Chun MD POINT OF CARE TEST O POOLERATOAN Performing Organization Address [facility]/[place] Co de Phone Number [facility] [place] [place] [address] * POCT Glucose (04/25/2020 7:37 AM EDT) POC Glucose 147 65 - 199 mg/dL [facility] Comment: Supplemental ranges: <140 mg/dL before meals <180 mg/dL all other times of the day Blood specimen (specimen) 04/25/2020 7:37 AM EDT 04/25/2020 7:37 AM EDT Abiodun Chun MD POINT OF CARE TEST O RDERATOAN Performing Organization Address [facility]/[place] Co de Phone Number [facility] [place] [address] * (ABNORMAL) Differential, Automated (04/25/2020 5:05 AM EDT) Neutrophils % 63.5 % [facility] Neutr Abs (ANC) 8.95(H) 1.70 - 6.10 x10(3)/mc L [facility] Lymphocytes % 18.9 % [facility] Lymphocytes Abs 2.7 0.9 - 3.2 x10(3)/[facility] Monocytes % 6.8 % [facility] Monocyte Abs 1.0(H) 0.3 - 0.9 x10(3)/[facility] Eosinophils % 3.3 % [facility] Eosinophils Abs 0.5(H) 0.0 - 0.4 x10(3)/[facility] Basophils % 0.9 % [facility] Basophils Abs 0.1 0.0 - 0.1 x10(3)/[facility] Immature Gran % 6.60 % [facility] Comment: Immature granulocytes(IG's)percentage and absolute count will include metamyelocytes, myelocytes, and promyelocytes. Blood smears from CBCs yielding IG's will be scanned manually for concordance. If this scan disagrees with the automated IG or if promyelocytes are noted, a manual differential will be performed. Nanci Gran Abs 0.93(H) 0.00 - 0.04 x10(3)/[facility] Blood specimen (specimen) 04/25/2020 5:05 AM EDT 04/25/2020 5:20 AM EDT Narrative Resulting Agency Comment Spec In Lab Hong Levi MD HEMATOLOGY ORDERABLE S Performing Organization Address City/State/[place] Co de Phone Number [facility] [place] [place] [address] * (ABNORMAL) Hemogram (04/25/2020 5:05 AM EDT) WBC 14.1(H) 4.0 - 9.5 x10(3)/[facility] RBC 3.67(L) 4.00 - 5.21 x10(6)/[facility] Hemoglobin 10.0(L) 11.7 - 15.5 gm/dL [facility] Hematocrit 30.9(L) 35.7 - 45.8 % [facility] MCV 84.2 82.6 - 94.4 fL [facility] MCH 27.2 27.1 - 32.0 pg [facility] MCHC 32.4 31.7 - 35.0 gm/dL [facility] Platelets 396(H) 145 - 357 x10(3)/[facility] RDWSD 45.8 37.0 - 46.0 fL [facility] RDWCV 15.0(H) 11.5 - 14.1 % [facility] MPV 9.5 7.6 - 12.9 fL [facility] nRBC % Auto 0.1 % [facility] nRBC Abs Auto 0.020(H) 0.000 - 0.000 x10(3)/[facility] Blood specimen (specimen) 04/25/2020 5:05 AM EDT 04/25/2020 5:20 AM EDT Narrative Resulting Agency Comment Spec In Lab Hong Levi MD HEMATOLOGY ORDERABLE S Performing Organization Address [facility]/[place] Co de Phone Number [facility] [place] [address] * Magnesium (04/25/2020 5:05 AM EDT) Magnesium 0.79 0.69 - 1.07 mmol/L [facility] Blood specimen (specimen) 04/25/2020 5:05 AM EDT 04/25/2020 5:19 AM EDT Narrative Resulting Agency Comment Spec In Lab Dale Dash MD CHEMISTRY ORDERABLES Performing Organization Address [facility]/[place] Co de Phone Number [facility] [place] [address] * (ABNORMAL) Comprehensive metabolic panel (non-fasting) (04/25/2020 5:05 AM EDT) Glucose Lvl 138 65 - 199 mg/dL [facility] Comment:Diabetes: >=200 mg/d L plus symptoms BUN 16 8 - 18 mg/dL [facility] Creatinine 0.69(L) 0.70 - 1.20 mg/dL [facility] Sodium 142 135 - 145 mmol/L [facility] Potassium 3.1(L) 3.5 - 5.0 mmol/L [facility] Comment: Please note: ??Patients with WBC >100,000 may have falsely elevated Potassium levels. ??For accurate Potassium quantification in these patients send serum separator tube (gold top) for subsequent determinations. ??Contact the Clinical Chemistry Laboratory if there are any questions. Chloride 108(H) 98 - 107 mmol/L [facility] CO2 22 22 - 31 mmol/L [facility] Anion Gap 12 5 - 15 mmol/L [facility] Calcium 8.7 8.5 - 10.5 mg/dL [facility] Total Protein 6.1 6.1 - 8.0 gm/dL [facility] Albumin 2.6(L) 3.2 - 5.2 gm/dL [facility] AST 15 0 - 30 unit/L [facility] ALT 15 0 - 30 unit/L [facility] Alk Phos 239(H) 35 - 105 unit/L [facility] Total Bilirubin 0.4 0.2 - 1.3 mg/dL [facility] Estimated GFR 83 >=60 mL/min/1. 73 m?? [facility] Comment: The eGFR was calculated using the CKD-EPI equation. As with all creatinine based estimates of kidney function, eGFR values calculated with the CKD-EPI equation are not accurate in patients with acute kidney failure, extremes of body mass or the acutely ill. http://[employer]/[facility] eGFR 96 >=60 mL/min/1. 73 m?? [facility] Comment: The eGFR was calculated using the CKD-EPI equation. As with all creatinine based estimates of kidney function, eGFR values calculated with the CKD-EPI equation are not accurate in patients with acute kidney failure, extremes of body mass or the acutely ill. [email or web address] Blood specimen (specimen) 04/25/2020 5:05 AM EDT 04/25/2020 5:19 AM EDT Narrative Resulting Agency Comment Spec In Lab Dale Dash MD CHEMISTRY ORDERABLES Performing Organization Address City/[facility]/ZIP Co de Phone Number [facility] [place] [address] * POCT Glucose (04/25/2020 4:06 AM EDT) POC Glucose 135 65 - 199 mg/dL [facility] Comment: Supplemental ranges: <140 mg/dL before meals <180 mg/dL all other times of the day Blood specimen (specimen) 04/25/2020 4:06 AM EDT 04/25/2020 4:06 AM EDT Abiodun Chun MD POINT OF CARE TEST O RDERABLES Performing Organization Address [facility]/[place] Co de Phone Number [facility] [place] [address] * (ABNORMAL) POCT Glucose (04/24/2020 11:19 PM EDT) POC Glucose 203(H) 65 - 199 mg/dL [facility] Comment: Supplemental ranges: <140 mg/dL before meals <180 mg/dL all other times of the day Blood specimen (specimen) 04/24/2020 11:19 PM EDT 04/24/2020 11:19 PM EDT Abiodun Chun MD POINT OF CARE TEST O RDERABLES Performing Organization Address City/[facility]/[place] Co de Phone Number [facility] [place] [address] * (ABNORMAL) POCT Glucose (04/24/2020 8:16 PM EDT) POC Glucose 241(H) 65 - 199 mg/dL [facility] Comment: Supplemental ranges: <140 mg/dL before meals <180 mg/dL all other times of the day Blood specimen (specimen) 04/24/2020 8:16 PM EDT 04/24/2020 8:16 PM EDT Abiodun Chun MD POINT OF CARE TEST O RDERABLES [facility] [place] [place] [address] * (ABNORMAL) POCT Glucose (04/24/2020 5:08 PM EDT) POC Glucose 230(H) 65 - 199 mg/dL [facility] Comment: Supplemental ranges: <140 mg/dL before meals <180 mg/dL all other times of the day Blood specimen (specimen) 04/24/2020 5:08 PM EDT 04/24/2020 5:08 PM EDT Abiodun Chun MD POINT OF CARE TEST O POOLERATOAN Performing Organization Address [facility]/ZIP Co de Phone Number [facility] [place] [address] * (ABNORMAL) POCT Glucose (04/24/2020 11:48 AM EDT) POC Glucose 223(H) 65 - 199 mg/dL [facility] Comment: Supplemental ranges: <140 mg/dL before meals <180 mg/dL all other times of the day Blood specimen (specimen) 04/24/2020 11:48 AM EDT 04/24/2020 11:48 AM EDT Abiodun Chun MD POINT OF CARE TEST O RDERABLES Performing Organization Address City/[facility]/ZIP Co de Phone Number [facility] [place] [address] * POCT Glucose (04/24/2020 7:33 AM EDT) POC Glucose 179 65 - 199 mg/dL [facility] Comment: Supplemental ranges: <140 mg/dL before meals <180 mg/dL all other times of the day Blood specimen (specimen) 04/24/2020 7:33 AM EDT 04/24/2020 7:33 AM EDT Abiodun Chun MD POINT OF CARE TEST O RDERABLES Performing Organization Address [facility]/[place] Co de Phone Number [facility] [place] [address] * Scan, Peripheral Blood (04/24/2020 4:58 AM EDT) Pathologist [facility] Plat Estimate Increased [facility] RBC Morphology Abnormal [facility] Microcytes 1-5 /HPF [facility] Hypochromia Slight [facility] Platelet Clumps Present [facility] Blood specimen (specimen) 04/24/2020 4:58 AM EDT 04/24/2020 5:16 AM EDT Narrative Resulting Agency Comment Spec In Lab Hong Levi MD HEMATOLOGY ORDERABLE S Performing Organization Address [facility]/[place] Co de Phone Number [facility] [place] [address] * (ABNORMAL) Differential, Automated (04/24/2020 4:58 AM EDT) Pathologist [facility] Neutrophils % 64.5 % [facility] Neutr Abs (ANC) 7.89(H) 1.70 - 6.10 x10(3)/mc L [facility] Lymphocytes % 18.2 % [facility] Lymphocytes Abs 2.2 0.9 - 3.2 x10(3)/mc L [facility] Monocytes % 8.3 % [facility] Monocyte Abs 1.0(H) 0.3 - 0.9 x10(3)/mc L [facility] Eosinophils % 2.9 % [facility] Eosinophils Abs 0.4 0.0 - 0.4 x10(3)/[facility] LABORATORY Basophils % 0.9 % [facility] Basophils Abs 0.1 0.0 - 0.1 x10(3)/[facility] LABORATORY Immature Gran % 5.20 % [facility] Comment: Immature granulocytes(IG's)percentage and absolute count will include metamyelocytes, myelocytes, and promyelocytes. Blood smears from CBCs yielding IG's will be scanned manually for concordance. If this scan disagrees with the automated IG or if promyelocytes are noted, a manual differential will be performed. Nanci Gran Abs 0.64(H) 0.00 - 0.04 x10(3)/[facility] LABORATORY Blood specimen (specimen) 04/24/2020 4:58 AM EDT 04/24/2020 5:16 AM EDT Narrative Resulting Agency Comment Spec In Lab Hong Levi MD HEMATOLOGY ORDERABLE S [facility] [place] [address] * (ABNORMAL) Hemogram (04/24/2020 4:58 AM EDT) WBC 12.2(H) 4.0 - 9.5 x10(3)/[facility] LABORATORY RBC 3.71(L) 4.00 - 5.21 x10(6)/[facility] LABORATORY Hemoglobin 10.1(L) 11.7 - 15.5 gm/dL [facility] Hematocrit 31.2(L) 35.7 - 45.8 % [facility] MCV 84.1 82.6 - 94.4 fL [facility] MCH 27.2 27.1 - 32.0 pg [facility] MCHC 32.4 31.7 - 35.0 gm/dL [facility] Platelets 375(H) 145 - 357 x10(3)/[facility] RDWSD 46.6(H) 37.0 - 46.0 fL [facility] RDWCV 15.2(H) 11.5 - 14.1 % [facility] MPV 9.7 7.6 - 12.9 fL [facility] nRBC % Auto 0.0 % [facility] nRBC Abs Auto 0.000 0.000 - 0.000 x10(3)/mcL [facility] Blood specimen (specimen) 04/24/2020 4:58 AM EDT 04/24/2020 5:16 AM EDT Narrative Resulting Agency Comment Spec In Lab Hong Levi MD HEMATOLOGY ORDERABLE S Performing Organization Address [facility]/ZIP Co de Phone Number [facility] [place] [address] * Magnesium (04/24/2020 4:58 AM EDT) Pathologist [facility] Magnesium 0.87 0.69 - 1.07 mmol/L [facility] Blood specimen (specimen) 04/24/2020 4:58 AM EDT 04/24/2020 5:16 AM EDT Narrative Resulting Agency Comment Spec In Lab Dale Dash MD CHEMISTRY ORDERABLES Performing Organization Address [facility]/[place] Co de Phone Number [facility] [place] [address] * (ABNORMAL) Comprehensive metabolic panel (non-fasting) (04/24/2020 4:58 AM EDT) Glucose Lvl 188 65 - 199 mg/dL [facility] Comment:Diabetes: >=200 mg/d L plus symptoms BUN 25(H) 8 - 18 mg/dL [facility] Creatinine 0.74 0.70 - 1.20 mg/dL [facility] Sodium 143 135 - 145 mmol/L [facility] Potassium 3.3(L) 3.5 - 5.0 mmol/L [facility] Comment: Please note: ??Patients with WBC >100,000 may have falsely elevated Potassium levels. ??For accurate Potassium quantification in these patients send serum separator tube (gold top) for subsequent determinations. ??Contact the Clinical Chemistry Laboratory if there are any questions. Chloride 108(H) 98 - 107 mmol/L [facility] CO2 22 22 - 31 mmol/L [facility] Anion Gap 13 5 - 15 mmol/L [facility] Calcium 8.7 8.5 - 10.5 mg/dL [facility] Total Protein 6.4 6.1 - 8.0 gm/dL [facility] Albumin 2.8(L) 3.2 - 5.2 gm/dL [facility] AST 14 0 - 30 unit/L [facility] ALT 16 0 - 30 unit/L [facility] Alk Phos 243(H) 35 - 105 unit/L [facility] Total Bilirubin 0.4 0.2 - 1.3 mg/dL [facility] Estimated GFR 77 >=60 mL/min/1. 73 m?? [facility] Comment: The eGFR was calculated using the CKD-EPI equation. As with all creatinine based estimates of kidney function, eGFR values calculated with the CKD-EPI equation are not accurate in patients with acute kidney failure, extremes of body mass or the acutely ill. http://[employer]/[facility]f eGFR 89 >=60 mL/min/1. 73 m?? [facility] Comment: The eGFR was calculated using the CKD-EPI equation. As with all creatinine based estimates of kidney function, eGFR values calculated with the CKD-EPI equation are not accurate in patients with acute kidney failure, extremes of body mass or the acutely ill. http://[employer]/[facility]nkf Blood specimen (specimen) 04/24/2020 4:58 AM EDT 04/24/2020 5:16 AM EDT Narrative Resulting Agency Comment Spec In Lab Dale Dash MD CHEMISTRY ORDERABLES Performing Organization Address City/State/[place] Co de Phone Number [facility] [place] [address] * POCT Glucose (04/24/2020 4:06 AM EDT) POC Glucose 191 65 - 199 mg/dL [facility] Comment: Supplemental ranges: <140 mg/dL before meals <180 mg/dL all other times of the day Blood specimen (specimen) 04/24/2020 4:06 AM EDT 04/24/2020 4:06 AM EDT Abiodun Chun MD POINT OF CARE TEST O RDERABLES Performing Organization Address [facility] de Phone Number [facility] [place] [address] * POCT Glucose (04/23/2020 11:44 PM EDT) POC Glucose 193 65 - 199 mg/dL [facility] Comment: Supplemental ranges: <140 mg/dL before meals <180 mg/dL all other times of the day Blood specimen (specimen) 04/23/2020 11:44 PM EDT 04/23/2020 11:44 PM EDT Abiodun Chun MD POINT OF CARE TEST O RDERATOAN Performing Organization Address [facility] de Phone Number [facility] [place] [address] * POCT Glucose (04/23/2020 8:02 PM EDT) POC Glucose 177 65 - 199 mg/dL [facility] Comment: Supplemental ranges: <140 mg/dL before meals <180 mg/dL all other times of the day Blood specimen (specimen) 04/23/2020 8:02 PM EDT 04/23/2020 8:02 PM EDT Abiodun Chun MD POINT OF CARE TEST O RDERATOAN Performing Organization Address [facility]/ZIP Co de Phone Number [facility] [place] [place] [address] * (ABNORMAL) POCT Glucose (04/23/2020 4:15 PM EDT) POC Glucose 204(H) 65 - 199 mg/dL [facility] Comment: Supplemental ranges: <140 mg/dL before meals <180 mg/dL all other times of the day Blood specimen (specimen) 04/23/2020 4:15 PM EDT 04/23/2020 4:15 PM EDT Abiodun Chun MD POINT OF CARE TEST O RDERABLES Performing Organization Address [facility]/[place] Co de Phone Number [facility] [place] [address] * Potassium (04/23/2020 1:40 PM EDT) Potassium 3.7 3.5 - 5.0 mmol/L [facility] Comment: Please note: ??Patients [...] Chun MD CHEMISTRY ORDERABLES Performing Organization Address [facility]/[place] Co de Phone Number [facility] [place] [place] [address] * (ABNORMAL) POCT Glucose (04/23/2020 11:35 AM EDT) POC Glucose 202(H) 65 - 199 mg/dL [facility] Comment: Supplemental ranges: <140 mg/dL before meals <180 mg/dL all other times of the day Blood specimen (specimen) 04/23/2020 11:35 AM EDT 04/23/2020 11:35 AM EDT Abiodun Chun MD POINT OF CARE TEST O RDERABLES Performing Organization Address City/[facility]/ZIP Co de Phone Number [facility] [place] [place] [address] * POCT Glucose (04/23/2020 7:27 AM EDT) POC Glucose 115 65 - 199 mg/dL [facility] Comment: Supplemental ranges: <140 mg/dL before meals <180 mg/dL all other times of the day Blood specimen (specimen) 04/23/2020 7:27 AM EDT 04/23/2020 7:27 AM EDT Hong Rosenthal MD POINT OF CARE TEST O RDERATOAN Performing Organization Address [facility]/ZIP Co de Phone Number [facility] [place] [place] [address] * POCT Glucose (04/23/2020 4:03 AM EDT) POC Glucose 137 65 - 199 mg/dL [facility] Comment: Supplemental ranges: <140 mg/dL before meals <180 mg/dL all other times of the day Blood specimen (specimen) 04/23/2020 4:03 AM EDT 04/23/2020 4:03 AM EDT Hong Rosenthal MD POINT OF CARE TEST O RDERATOAN Performing Organization Address City/[facility]/ZIP Co de Phone Number [facility] [place] [place] [address] * Scan, Peripheral Blood (04/23/2020 2:25 AM EDT) Plat Estimate Increased [facility] RBC Morphology Abnormal [facility] Microcytes 1-5 /HPF [facility] Hypochromia Slight [facility] Blood specimen (specimen) 04/23/2020 2:25 AM EDT 04/23/2020 2:57 AM EDT Narrative Resulting Agency Comment Spec In Lab Tiesha Morgan MD HEMATOLOGY ORDERABLE S [facility] [place] [place] [address] * (ABNORMAL) Differential, Automated (04/23/2020 2:25 AM EDT) Neutrophils % 72.2 % [facility] Neutr Abs (ANC) 7.20(H) 1.70 - 6.10 x10(3)/ L [facility] Lymphocytes % 17.0 % [facility] Lymphocytes Abs 1.7 0.9 - 3.2 x10(3)/[facility] LABORATORY Monocytes % 7.5 % [facility] Monocyte Abs 0.8 0.3 - 0.9 x10(3)/[facility] LABORATORY Eosinophils % 1.9 % [facility] Eosinophils Abs 0.2 0.0 - 0.4 x10(3)/[facility] LABORATORY Basophils % 0.5 % [facility] Basophils Abs 0.0 0.0 - 0.1 x10(3)/[facility] LABORATORY Immature Gran % 0.90 % [facility] Comment: Immature granulocytes(IG's)percentage and absolute count will include metamyelocytes, myelocytes, and promyelocytes. Blood smears from CBCs yielding IG's will be scanned manually for concordance. If this scan disagrees with the automated IG or if promyelocytes are noted, a manual differential will be performed. Nanci Gran Abs 0.09(H) 0.00 - 0.04 x10(3)/ L [facility] Blood specimen (specimen) 04/23/2020 2:25 AM EDT 04/23/2020 2:57 AM EDT Narrative Resulting Agency Comment Spec In Lab Tiesha Morgan MD HEMATOLOGY ORDERABLE S Performing Organization Address City/[facility]/ZIP Co de Phone Number [facility] [place] [address] * (ABNORMAL) Hemogram (04/23/2020 2:25 AM EDT) WBC 10.0(H) 4.0 - 9.5 x10(3)/[facility] LABORATORY RBC 3.26(L) 4.00 - 5.21 x10(6)/[facility] LABORATORY Hemoglobin 8.9(L) 11.7 - 15.5 gm/dL [facility] Hematocrit 27.4(L) 35.7 - 45.8 % [facility] MCV 84.0 82.6 - 94.4 fL [facility] MCH 27.3 27.1 - 32.0 pg [facility] MCHC 32.5 31.7 - 35.0 gm/dL [facility] Platelets 360(H) 145 - 357 x10(3)/[facility] LABORATORY RDWSD 47.2(H) 37.0 - 46.0 [facility] LABORATORY RDWCV 15.4(H) 11.5 - 14.1 % [facility] MPV 10.1 7.6 - 12.9 [facility] LABORATORY nRBC % Auto 0.0 % [facility] nRBC Abs Auto 0.000 0.000 - 0.000 x10(3)/[facility] LABORATORY Blood specimen (specimen) 04/23/2020 2:25 AM EDT 04/23/2020 2:57 AM EDT Narrative Resulting Agency Comment Spec In Lab Tiesha Morgan MD HEMATOLOGY ORDERABLE S [facility] [place] [place] [address] * Magnesium (04/23/2020 2:25 AM EDT) Magnesium 0.96 0.69 - 1.07 mmol/L [facility] Blood specimen (specimen) 04/23/2020 2:25 AM EDT 04/23/2020 2:57 AM EDT Narrative Resulting Agency Comment Spec In Lab Dale Dash MD CHEMISTRY ORDERABLES Performing Organization Address [facility] de Phone Number [facility] [place] [address] * (ABNORMAL) Prothrombin Time (04/23/2020 2:25 AM EDT) PT 14.6(H) 9.4 - 12.5 sec [facility] INR 1.3 [facility] Comment: An INR <2.0 indicates adequate [...] MD HEMATOLOGY ORDERABLE S Performing Organization Address [facility] de Phone Number [facility] [place] [address] * (ABNORMAL) Comprehensive metabolic panel (non-fasting) (04/23/2020 2:25 AM EDT) Glucose Lvl 134 65 - 199 mg/dL [facility] Comment:Diabetes: >=200 mg/d L plus symptoms BUN 32(H) 8 - 18 mg/dL [facility] Creatinine 0.96 0.70 - 1.20 mg/dL [facility] Sodium 142 135 - 145 mmol/L [facility] Potassium 3.3(L) 3.5 - 5.0 mmol/L [facility] Comment: Please note: ??Patients with WBC >100,000 may have falsely elevated Potassium levels. ??For accurate Potassium quantification in these patients send serum separator tube (gold top) for subsequent determinations. ??Contact the Clinical Chemistry Laboratory if there are any questions. Chloride 106 98 - 107 mmol/L [facility] CO2 24 22 - 31 mmol/L [facility] Anion Gap 12 5 - 15 mmol/L [facility] Calcium 8.4(L) 8.5 - 10.5 mg/dL [facility] Total Protein 6.1 6.1 - 8.0 gm/dL [facility] Albumin 2.7(L) 3.2 - 5.2 gm/dL [facility] AST 17 0 - 30 unit/L [facility] ALT 19 0 - 30 unit/L [facility] Alk Phos 227(H) 35 - 105 unit/L [facility] Total Bilirubin 0.5 0.2 - 1.3 mg/dL [facility] Estimated GFR 56(L) >=60 mL/min/1. 73 m?? [facility] Comment: The eGFR was calculated using the CKD-EPI equation. As with all creatinine based estimates of kidney function, eGFR values calculated with the CKD-EPI equation are not accurate in patients with acute kidney failure, extremes of body mass or the acutely ill. http://[employer]/[facility]MANnkf eGFR 65 >=60 mL/min/1. 73 m?? [facility] Comment: The eGFR was calculated using the CKD-EPI equation. As with all creatinine based estimates of kidney function, eGFR values calculated with the CKD-EPI equation are not accurate in patients with acute kidney failure, extremes of body mass or the acutely ill. [email or web address] Blood specimen (specimen) 04/23/2020 2:25 AM EDT 04/23/2020 2:57 AM EDT Narrative Resulting Agency Comment Spec In Lab Dale Dash MD CHEMISTRY ORDERABLES [facility] [place] [address] * POCT Glucose (04/22/2020 11:23 PM EDT) POC Glucose 143 65 - 199 mg/dL [facility] Comment: Supplemental ranges: <140 mg/dL before meals <180 mg/dL all other times of the day Blood specimen (specimen) 04/22/2020 11:23 PM EDT 04/22/2020 11:23 PM EDT Hong Rosenthal MD POINT OF CARE TEST O ISAIAH Performing Organization Address [facility]/[place] Co de Phone Number [facility] [place] [address] * POCT Glucose (04/22/2020 8:00 PM EDT) POC Glucose 142 65 - 199 mg/dL [facility] Comment: Supplemental ranges: <140 mg/dL before meals <180 mg/dL all other times of the day Blood specimen (specimen) 04/22/2020 8:00 PM EDT 04/22/2020 8:00 PM EDT Hong Rosenthal MD POINT OF CARE TEST O ISAIAH Performing Organization Address [facility]/[place] Co de Phone Number [facility] [place] [address] * (ABNORMAL) Potassium (04/22/2020 5:45 PM EDT) Potassium 3.4(L) 3.5 - 5.0 mmol/L [facility] Comment: Please note: ??Patients [...] Rosenthal MD CHEMISTRY ORDERABLES Performing Organization Address [facility]/[place] Co de Phone Number [facility] [place] [address] * POCT Glucose (04/22/2020 4:42 PM EDT) POC Glucose 156 65 - 199 mg/dL [facility] Comment: Supplemental ranges: <140 mg/dL before meals <180 mg/dL all other times of the day Blood specimen (specimen) 04/22/2020 4:42 PM EDT 04/22/2020 4:42 PM EDT Hong Rosenthal MD POINT OF CARE TEST O RDERABLES Performing Organization Address [facility]/[place] Co de Phone Number [facility] [place] [address] * IR Cholecystostomy Tube Placement (04/22/2020 4:19 [...] EDT) Anaerobic Culture No anaerobic organisms isolated [facility] Bile specimen (specimen) 04/22/2020 3:50 PM EDT 04/22/2020 4:36 PM EDT Comment:CHOLECYSTITIS IN THE SETTING OF RECENT ACS S/P STENT PLACEMENT Narrative Resulting Agency Comment Spec In Lab Hong Rosenthal MD MICROBIOLOGY - [facility] AL ORDERABLES [facility] [place] [place] [address] * (ABNORMAL) Body Fluid Culture, Aerobic (04/22/2020 3:50 PM EDT) Body Fluid Culture Many Raoultella ornithinolytica (Klebsiella ornithinolytica)(A ) [facility] Gram Stain Few Neutrophils seen Rare Gram Negative Rods seen (A) [facility] Organism Raoultella ornithinolytica (Klebsiella ornithinolytica)(A ) [facility] Organism Gram Negative Rods(A) [facility] Bile specimen (specimen) 04/22/2020 [...] METHOD Sensitive Hong Rosenthal MD MICROBIOLOGY - [facility] AL ORDERABLES [facility] [place] [place] [address] * (ABNORMAL) Differential, Automated (04/22/2020 2:05 PM EDT) Neutrophils % 77.2 % [facility] Neutr Abs (ANC) 9.74(H) 1.70 - 6.10 x10(3)/mc L [facility] Lymphocytes % 11.3 % [facility] Lymphocytes Abs 1.4 0.9 - 3.2 x10(3)/ L [facility] Monocytes % 8.2 % [facility] Monocyte Abs 1.0(H) 0.3 - 0.9 x10(3)/[facility] LABORATORY Eosinophils % 1.9 % [facility] Eosinophils Abs 0.2 0.0 - 0.4 x10(3)/[facility] LABORATORY Basophils % 0.6 % [facility] Basophils Abs 0.1 0.0 - 0.1 x10(3)/[facility] LABORATORY Immature Gran % 0.80 % [facility] Comment: Immature granulocytes(IG's)percentage and absolute count will include metamyelocytes, myelocytes, and promyelocytes. Blood smears from CBCs yielding IG's will be scanned manually for concordance. If this scan disagrees with the automated IG or if promyelocytes are noted, a manual differential will be performed. Nanci Gran Abs 0.10(H) 0.00 - 0.04 x10(3)/[facility] LABORATORY Blood specimen (specimen) 04/22/2020 2:05 PM EDT 04/22/2020 2:17 PM EDT Narrative Resulting Agency Comment Spec In Lab Hong Levi MD HEMATOLOGY ORDERABLE S [facility] [place] [place] [address] * (ABNORMAL) Hemogram (04/22/2020 2:05 PM EDT) WBC 12.6(H) 4.0 - 9.5 x10(3)/[facility] LABORATORY RBC 3.51(L) 4.00 - 5.21 x10(6)/[facility] LABORATORY Hemoglobin 9.5(L) 11.7 - 15.5 gm/dL [facility] Hematocrit 29.3(L) 35.7 - 45.8 % [facility] MCV 83.5 82.6 - 94.4 fL [facility] MCH 27.1 27.1 - 32.0 pg [facility] MCHC 32.4 31.7 - 35.0 gm/dL [facility] Platelets 340 145 - 357 x10(3)/[facility] LABORATORY RDWSD 47.2(H) 37.0 - 46.0 fL [facility] RDWCV 15.4(H) 11.5 - 14.1 % [facility] MPV 10.4 7.6 - 12.9 fL [facility] nRBC % Auto 0.0 % [facility] nRBC Abs Auto 0.000 0.000 - 0.000 x10(3)/[facility] LABORATORY Blood specimen (specimen) 04/22/2020 2:05 PM EDT 04/22/2020 2:17 PM EDT Narrative Resulting Agency Comment Spec In Lab Hong Levi MD HEMATOLOGY ORDERABLE S [facility] [place] [place] [address] * POCT Glucose (04/22/2020 11:29 AM EDT) [facility] POC Glucose 171 65 - 199 mg/dL [facility] Comment: Supplemental ranges: <140 mg/dL before meals <180 mg/dL all other times of the day Blood specimen (specimen) 04/22/2020 11:29 AM EDT 04/22/2020 11:29 AM EDT Hong Rosenthal MD POINT OF CARE TEST O RDERABLES [facility] [place] [place] [address] * (ABNORMAL) BLOOD GAS 2 ARTERIAL (04/22/2020 9:20 AM EDT) [facility] pH Art 7.41 7.35 - 7.45 [facility] pCO2 Art 37 35 - 45 mmHg [facility] pO2 Art 103 85 - 104 mmHg [facility] HCO3 Art 23.4 20.0 - 26.0 mmol/L [facility] BE Art -1.2 -3.0 - 3.0 mmol/L [facility] Hgb Blood Gas 9.3(L) 11.7 - 15.5 gm/dL [facility] O2HB Art 96.3 94.0 - 97.0 % [facility] COHB Art 0.3 % [facility] Comment: Nonsmokers: 0.5-1.5% COHB Smokers: Variable, but usually less than 10% Toxic: 20-30% COHB Lethal: Greater than 60% COHB METHB Art 0.6 <=1.5 % [facility] Na Whole Blood 137 135 - 145 mmol/L [facility] K Whole Blood 3.0(Critic al) 3.5 - 5.0 mmol/L [facility] Comment: Noted by hearing instrument specialist. Please note: Patients with WBC >100,000 may have falsely elevated Potassium levels. Contact the Clinical Chemistry Laboratory if there are any questions. ICa Whole Blood 1.11(L) 1.15 - 1.33 mmol/L [facility] Comment: Note: ??Total bilirubin higher than 20 mg/dL may lead to falsely low ionized calcium. CL Whole Blood 109(H) 98 - 107 mmol/L [facility] Gluc Whole Bld 147 65 - 199 mg/dL [facility] Comment:Diabetes: >=200 mg/d L plus symptoms. Lactate WB 1.1 0.5 - 2.2 mmol/L [facility] Flow Art 6.0 LPM [facility] Blood specimen (specimen) 04/22/2020 9:20 AM EDT 04/22/2020 9:20 AM EDT Hong Rosenthal MD CHEMISTRY ORDERABLES [facility] [place] [address] * POCT Glucose (04/22/2020 7:35 AM EDT) POC Glucose 153 65 - 199 mg/dL [facility] Comment: Supplemental ranges: <140 mg/dL before meals <180 mg/dL all other times of the day Blood specimen (specimen) 04/22/2020 7:35 AM EDT 04/22/2020 7:35 AM EDT Hong Rosenthal MD POINT OF CARE TEST O RDERABLES [facility] [place] [place] [address] * XR Chest One View (04/22/2020 6:15 [...] (ANC) 10.58(H) 1.70 - 6.10 x10(3)/mc L [facility] Lymphocytes % 11.9 % [facility] Lymphocytes Abs 1.6 0.9 - 3.2 x10(3)/mc L [facility] Monocytes % 8.2 % [facility] Monocyte Abs 1.1(H) 0.3 - 0.9 x10(3)/mc L [facility] Eosinophils % 0.5 % [facility] Eosinophils Abs 0.1 0.0 - 0.4 x10(3)/mc L [facility] Basophils % 0.2 % [facility] Basophils Abs 0.0 0.0 - 0.1 x10(3)/mc L [facility] Immature Gran % 0.80 % [facility] Comment: Immature granulocytes(IG's)percentage and absolute count will include metamyelocytes, myelocytes, and promyelocytes. Blood smears from CBCs yielding IG's will be scanned manually for concordance. If this scan disagrees with the automated IG or if promyelocytes are noted, a manual differential will be performed. Nanci Gran Abs 0.11(H) 0.00 - 0.04 x10(3)/ L [facility] Blood specimen (specimen) 04/22/2020 3:50 AM EDT 04/22/2020 3:57 AM EDT Narrative Resulting Agency Comment Spec In Lab Tiesha Morgan MD HEMATOLOGY ORDERABLE S Performing Organization Address City/State/[place] Co de Phone Number [facility] [place] [address] * (ABNORMAL) Hemogram (04/22/2020 3:50 AM EDT) WBC 13.5(H) 4.0 - 9.5 x10(3)/[facility] LABORATORY RBC 3.18(L) 4.00 - 5.21 x10(6)/[facility]ATORY Hemoglobin 8.6(L) 11.7 - 15.5 gm/dL [facility] Hematocrit 26.8(L) 35.7 - 45.8 % [facility] MCV 84.3 82.6 - 94.4 fL [facility] MCH 27.0(L) 27.1 - 32.0 pg [facility] MCHC 32.1 31.7 - 35.0 gm/dL [facility] Platelets 313 145 - 357 x10(3)/[facility] RDWSD 47.2(H) 37.0 - 46.0 fL [facility] RDWCV 15.2(H) 11.5 - 14.1 % [facility] MPV 10.5 7.6 - 12.9 fL [facility] nRBC % Auto 0.0 % [facility] nRBC Abs Auto 0.000 0.000 - 0.000 x10(3)/mcL [facility] Blood specimen (specimen) 04/22/2020 3:50 AM EDT 04/22/2020 3:57 AM EDT Narrative Resulting Agency Comment Spec In Lab Tiesha Morgan MD HEMATOLOGY ORDERABLE S Performing Organization Address [facility]/ZIP Co de Phone Number [facility] [place] [address] * (ABNORMAL) Magnesium (04/22/2020 3:50 AM EDT) Magnesium 1.46(H) 0.69 - 1.07 mmol/L [facility] Blood specimen (specimen) 04/22/2020 3:50 AM EDT 04/22/2020 3:57 AM EDT Narrative Resulting Agency Comment Spec In Lab Dale Dash MD CHEMISTRY ORDERABLES Performing Organization Address [facility]/[place] Co de Phone Number [facility] [place] [address] * (ABNORMAL) Prothrombin Time (04/22/2020 3:50 AM EDT) PT 13.9(H) 9.4 - 12.5 sec [facility] INR 1.2 [facility] Comment: An INR <2.0 indicates adequate [...] Lab Magdalene Lopez MD HEMATOLOGY ORDERABLE S [facility] [place] [place] [address] * TSH Haines (04/22/2020 3:50 AM EDT) TSH 1.22 0.27 - 4.20 mcIU/mL [facility] Blood specimen (specimen) 04/22/2020 3:50 AM EDT 04/22/2020 3:57 AM EDT Narrative Resulting Agency Comment Spec In Lab Hong Rosenthal MD CHEMISTRY ORDERABLES Performing Organization Address [facility]/ZIP Co de Phone Number [facility] [place] [address] * Lipid Panel (Reflex Direct LDL) (04/22/2020 3:50 AM EDT) Chol, Total 104 mg/dL [facility] Comment: Lower Risk: <200 mg/dL Average Risk: 200-239 mg/dL Higher Risk: >om=982 mg/dL Triglycerides 237 mg/dL [facility] Comment: Average Risk/Lower Risk: <150 mg/dL Borderline High Risk: 150-199 mg/dL High Risk: 200-499 mg/dL Very High Risk: >ya=428 mg/dL HDL 17 mg/dL [facility] Comment: Males: ?? Higher Risk: <40 mg/dL Females: ?? HIgher Risk: <50 mg/dL LDL Cholesterol 40 mg/dL [facility] Comment: Lowest Risk: <100 mg/dL Lower Risk: 100-129 mg/dL Borderline High Risk: 130-159 mg/dL High Risk: 160-189 mg/dL Very High Risk: >bd=723 mg/dL Chol/HDL Ratio 6.1 ratio [facility] Lipid Interpretation See Note [facility] Comment: Lipid management should be guided by a patient? s ASCVD risk, goals and preferences. ACC/AHA Guidelines recommend high intensity statin if clinical ASCVD or LDL greater than or equal to 190 mg/dL. http://Memorop.com/IPK-GEM-Ylwvjmtwm Adults aged 40-75 with LDL 70-189 mg/dL should have their 10 year ASCVD risk estimated with the ACC/AHA ASCVD risk production cost estimator http://tools.acc.org/GUBAA-Wauv-Iydptiybl/ Statin should be discussed if risk greater [...] In Lab Hong Rosenthal MD CHEMISTRY ORDERABLES [facility] [place] [phone] * (ABNORMAL) Hemoglobin A1c (04/22/2020 3:50 AM EDT) Hemoglobin A1C 8.5(H) 4.3 - 5.6 % [facility] Comment: Reference Range: 4.3 [...] Mellitus, Diabetes Care 2013; 36: Suppl. 1, S67-85 Est Avg Gluc See note mg/dL [facility] Comment: Estimated Average Glucose [...] into estimated average glucose values. ??Diabetes Care 2008:31(8):4218-9616. Blood specimen (specimen) 04/22/2020 3:50 AM EDT 04/22/2020 3:57 AM EDT Narrative Resulting Agency Comment Spec In Lab Hong Rosenthal MD CHEMISTRY ORDERABLES [facility] [place] [address] * (ABNORMAL) Comprehensive metabolic panel (non-fasting) (04/22/2020 3:50 AM EDT) Glucose Lvl 157 65 - 199 mg/dL [facility] Comment:Diabetes: >=200 mg/d L plus symptoms BUN 34(H) 8 - 18 mg/dL [facility] Creatinine 1.10 0.70 - 1.20 mg/dL [facility] Sodium 139 135 - 145 mmol/L [facility] Potassium 3.2(L) 3.5 - 5.0 mmol/L [facility] Comment: Please note: ??Patients with WBC >100,000 may have falsely elevated Potassium levels. ??For accurate Potassium quantification in these patients send serum separator tube (gold top) for subsequent determinations. ??Contact the Clinical Chemistry Laboratory if there are any questions. Chloride 103 98 - 107 mmol/L [facility] CO2 24 22 - 31 mmol/L [facility] Anion Gap 12 5 - 15 mmol/L [facility] Calcium 8.4(L) 8.5 - 10.5 mg/dL [facility] Total Protein 6.1 6.1 - 8.0 gm/dL [facility] Albumin 2.5(L) 3.2 - 5.2 gm/dL [facility] AST 19 0 - 30 unit/L [facility] ALT 20 0 - 30 unit/L [facility] Alk Phos 245(H) 35 - 105 unit/L [facility] Total Bilirubin 0.6 0.2 - 1.3 mg/dL [facility] Estimated GFR 48(L) >=60 mL/min/1. 73 m?? [facility] Comment: The eGFR was calculated using the CKD-EPI equation. As with all creatinine based estimates of kidney function, eGFR values calculated with the CKD-EPI equation are not accurate in patients with acute kidney failure, extremes of body mass or the acutely ill. http://[employer]/[facility]nkf eGFR 55(L) >=60 mL/min/1. 73 m?? [facility] Comment: The eGFR was calculated using the CKD-EPI equation. As with all creatinine based estimates of kidney function, eGFR values calculated with the CKD-EPI equation are not accurate in patients with acute kidney failure, extremes of body mass or the acutely ill. http://[employer]/[facility]nkf Blood specimen (specimen) 04/22/2020 3:50 AM EDT 04/22/2020 3:57 AM EDT Narrative Resulting Agency Comment Spec In Lab Dale Dash MD CHEMISTRY ORDERABLES Performing Organization Address City/[facility]/ZIP Co de Phone Number [facility] [place] [address] * POCT Glucose (04/21/2020 11:36 PM EDT) POC Glucose 195 65 - 199 mg/dL [facility] Comment: Supplemental ranges: <140 mg/dL before meals <180 mg/dL all other times of the day Blood specimen (specimen) 04/21/2020 11:36 PM EDT 04/21/2020 11:36 PM EDT Hong Rosenthal MD POINT OF CARE TEST O RDERABLES Performing Organization Address [facility]/[place] Co de Phone Number [facility] [place] [address] * (ABNORMAL) Basic Metabolic Panel (non-fasting) (04/21/2020 10:00 PM EDT) Glucose Lvl 231(H) 65 - 199 mg/dL [facility] Comment:Diabetes: >=200 mg/d L plus symptoms BUN 31(H) 8 - 18 mg/dL [facility] Creatinine 1.00 0.70 - 1.20 mg/dL [facility] Sodium 138 135 - 145 mmol/L [facility] Potassium 3.6 3.5 - 5.0 mmol/L [facility] Comment: Please note: ??Patients with WBC >100,000 may have falsely elevated Potassium levels. ??For accurate Potassium quantification in these patients send serum separator tube (gold top) for subsequent determinations. ??Contact the Clinical Chemistry Laboratory if there are any questions. Chloride 102 98 - 107 mmol/L [facility] CO2 24 22 - 31 mmol/L [facility] Anion Gap 12 5 - 15 mmol/L [facility] Calcium 8.5 8.5 - 10.5 mg/dL [facility] Estimated GFR 54(L) >=60 mL/min/1. 73 m?? [facility] Comment: The eGFR was calculated using the CKD-EPI equation. As with all creatinine based estimates of kidney function, eGFR values calculated with the CKD-EPI equation are not accurate in patients with acute kidney failure, extremes of body mass or the acutely ill. http://[employer]/[facility]nkf eGFR 62 >=60 mL/min/1. 73 m?? [facility] Comment: The eGFR was calculated using the CKD-EPI equation. As with all creatinine based estimates of kidney function, eGFR values calculated with the CKD-EPI equation are not accurate in patients with acute kidney failure, extremes of body mass or the acutely ill. http://[employer]/[facility]nkf Blood specimen (specimen) 04/21/2020 10:00 PM EDT 04/21/2020 10:04 PM EDT Narrative Resulting Agency Comment Spec In Lab Hong Rosenthal MD CHEMISTRY ORDERABLES Performing Organization Address City/[facility]/[place] Co de Phone Number [facility] [place] [address] * (ABNORMAL) POCT Glucose (04/21/2020 7:49 PM EDT) Pathologist [facility] POC Glucose 201(H) 65 - 199 mg/dL [facility] Comment: Supplemental ranges: <140 mg/dL before meals <180 mg/dL all other times of the day Blood specimen (specimen) 04/21/2020 7:49 PM EDT 04/21/2020 7:49 PM EDT Hong Rosenthal MD POINT OF CARE TEST O RDERABLES Performing Organization Address City/[facility]/ZIP Co de Phone Number [facility] [place] [address] * (ABNORMAL) Point of Care Blood Gas Historical (04/21/2020 4:44 PM EDT) POC pH 7.43 7.35 - 7.45 [facility] POC PCO2 31(L) 35 - 45 mmHg [facility] POC PO2 58(L) 85 - 104 mmHg [facility] POC Base Excess -4.0(L) -3.0 - 3.0 mmol/L [facility] POC HCO3 20.3 20.0 - 26.0 mmol/L [facility] POC Sodium 139 135 - 145 mmol/L [facility] POC Potassium 3.4(L) 3.5 - 5.0 mmol/L [facility] POC Ionized Ca 1.16 1.15 - 1.33 mmol/L [facility] POC Hematocrit 29.0(L) 34.0 - 45.0 % [facility] POC Calc Hgb 9.9(L) 11.2 - 15.7 gm/dL [facility] Comment:The calculation of h emoglobin from hematocrit assumes a normal MCHC. POC Bgas Loc CC LAB [facility] Blood specimen (specimen) 04/21/2020 4:44 PM EDT 04/22/2020 12:00 PM EDT Abiodun Chun MD CHEMISTRY ORDERABLES Performing Organization Address [facility]/State/[place] Co de Phone Number [facility] [place] [address] * CARDIAC CATHETERIZATION (04/21/2020 4:08 PM EDT) Anatomical Region Laterality Modality Other Narrative 04/21/2020 6:49 PM EDT ?[facility] ? Cardiac Catheterization/Intervention Report ? Patient Name: SHANNAN CHAUDHARY A. ? Procedure Date: 04/21/2020 ? A #: [id number] ? Primary Physician: Barbie, Esau J ? Case #: [id number] ? File Name: [id number] ? Catheterization Order Number: [id number] ? [facility] ? Final Report [place], [place] ? Patient Name: ? SHANNAN A. HEIDY ? ID#: ?[id number] ? : ?1940 ? Procedure Date: ? April 21, 2020 ?Case #: ? [id number] ? Room: ? 2 ? Case Physician: [...] procedure was Urgent. 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 ??Imaging ?was successful. ??Image [...] The lesion was predilated with a 3.00mm [place] CB 15 MM ? balloon with a [...] may require ?modification of this regimen. Consult [facility] Interventional Cardiology for ?questions. ?The 1 year [...] Procedure Note Esau Rahman MD - 04/21/2020 [facility] Cardiac Catheterization/Intervention Report Patient Name: SHANNAN CHAUDHARY Procedure Date: 04/21/2020 A #: [id number] Primary Physician: Esau Rahman Case #: [id number] File Name: [id number] Catheterization Order Number: [id number] [facility] FinalReport [place], [place] Patient Name: SHANNAN CHAUDHARY ID#:[id number] :1940 Procedure Date: April 21, 2020 Case [...] patient was designated asASA Class IV. The [facility] clinical frailty scale is 5: Mildly Frail. Diagnostic Tests: Prior Coronary Angiography: LV ejection fraction within 6 months is 59%. Electrocardiography: EKG was assessed by ECG. EKG was Abnormal. EKG showed other abnormality. Medications Prior to Procedure: Angiotensin Converting Enzyme Inhibitor, Beta Shari andStatin. Indications for Diagnostic Cath: The priority of the diagnostic procedure was Urgent. The indicationfor the laborer tin can visit is ACS less than or equal [...] 29.0 minutes, dose area product was 203,609 bYVsu0emy air kerma was 3,430 mGY. See the [...] 4 guiding catheter and a 3.[address] [facility] [address] 20 Mhz.Imaging was successful. Image quality was good. The ostial RCA showedscattered atherosclerotic plaque. Post Intervention: The stent was well expanded and apposed. Additional Findings: Stent seen not extend past ostium, andadequately covered lesion. Indication for Intervention: Coronary intervention was indicated for primary therapy for an acute myocardial infarction. The priority for the procedure was Urgent.The NCDR indication for the procedure was NSTE-ACS. LVEF [...] The lesion was predilated with a 3.00mm [place] CB 15MM balloon with a maximum inflation [...] situation mayrequire modification of this regimen. Consult [facility] Interventional Cardiologyfor questions. The 1 year bleeding [...] * POCT Glucose (04/21/2020 12:15 PM EDT) [facility] POC Glucose 180 65 - 199 mg/dL [facility] Comment: Supplemental ranges: <140 mg/dL before meals <180 mg/dL all other times of the day Blood specimen (specimen) 04/21/2020 12:15 PM EDT 04/21/2020 12:15 PM EDT Hong Rosenthal MD POINT OF CARE TEST O RDERABLES [facility] [place] [place] [address] * XR Chest One View (04/21/2020 4:51 [...] please contact the number below. ? Narrative 04/21/2020 6:22 AM EDT EXAMINATION: XR [...] number below. Electronically signed by: Dylan Kinsey [facility]([phone]), at 04/21/2020 6:22 AM Hong Rosenthal MD IMG DX ORDERABLES * (ABNORMAL) Troponin (04/21/2020 4:45 AM EDT) Troponin-T 0.13(H) 0.00 - 0.00 ng/mL [facility] Comment: The 99th percentile [...] ischemia ?? New or presumed new significant TA-yuiyqhc-U wave (ST-T) changes or new left bundle [...] additional sample may be indicated. Reference: Third [place] Definition of Myocardial Infarction. Journal of the [place] [employer] 2012;60:1581-98 Blood specimen (specimen) 04/21/2020 4:45 AM EDT 04/21/2020 4:56 AM EDT Narrative Resulting Agency Comment Spec In Lab Hong Rosenthal MD CHEMISTRY ORDERABLES Performing Organization Address [facility]/ZIP Co de Phone Number [facility] [place] [place] [address] * EKG 12 Lead (04/21/2020 4:33 AM EDT) Ventricular rate 83 BPM MUSE SYSTEM Atrial Rate 83 BPM MUSE SYSTEM P-R Interval 148 ms MUSE SYSTEM QRS Duration 138 ms MUSE SYSTEM Q-T Interval 408 ms MUSE SYSTEM QTC Calculated (Bezet) 479 ms MUSE SYSTEM Calculated P [place] 57 degrees MUSE SYSTEM Calculated R [place] 49 degrees MUSE SYSTEM Calculated T [place] 19 degrees MUSE SYSTEM INTERPRETATION Normal sinus rhythm Right bundle branch block Abnormal ECG When compared with ECG of 20-APR-2020 14:08, (unconfirmed) No significant change was found I personally reviewed the tracing and edited the fellows interpretation Confirmed by fellow Ren Quinn ([id number]) on 04/21/2020 1:32:16 PM Confirmed by Lisbeth Cain ([id number]) on 04/21/2020 7:47:23 PM MUSE SYSTEM 04/21/2020 4:33 AM EDT 04/21/2020 7:47 PM EDT Hong Rosenthal MD ECG ORDERABLES Performing Organization Address [facility]/[place] Co de Phone Number MUSE SYSTEM * POCT Glucose (04/21/2020 3:53 AM EDT) POC Glucose 138 65 - 199 mg/dL [facility] Comment: Supplemental ranges: <140 mg/dL before meals <180 mg/dL all other times of the day Blood specimen (specimen) 04/21/2020 3:53 AM EDT 04/21/2020 3:53 AM EDT Hong Rosenthal MD POINT OF CARE TEST O RDERABLES Performing Organization Address City/[facility]/ZIP Co de Phone Number [facility] [place] [place] [address] * (ABNORMAL) Differential, Automated (04/21/2020 3:30 AM EDT) Neutrophils % 86.1 % [facility] Neutr Abs (ANC) 14.52(H) 1.70 - 6.10 x10(3)/[facility] Lymphocytes % 6.9 % [facility] Lymphocytes Abs 1.2 0.9 - 3.2 x10(3)/[facility] Monocytes % 5.2 % [facility] Monocyte Abs 0.9 0.3 - 0.9 x10(3)/[facility] Eosinophils % 0.4 % [facility] Eosinophils Abs 0.1 0.0 - 0.4 x10(3)/[facility] Basophils % 0.2 % [facility] Basophils Abs 0.0 0.0 - 0.1 x10(3)/[facility] Immature Gran % 1.20 % [facility] Comment: Immature granulocytes(IG's)percentage and absolute count will include metamyelocytes, myelocytes, and promyelocytes. Blood smears from CBCs yielding IG's will be scanned manually for concordance. If this scan disagrees with the automated IG or if promyelocytes are noted, a manual differential will be performed. Nanci Gran Abs 0.20(H) 0.00 - 0.04 x10(3)/[facility] Blood specimen (specimen) 04/21/2020 3:30 AM EDT 04/21/2020 3:34 AM EDT Narrative Resulting Agency Comment Spec In Lab Tiesha Morgan MD HEMATOLOGY ORDERABLE S [facility] [place] [address] * (ABNORMAL) Hemogram (04/21/2020 3:30 AM EDT) WBC 16.9(H) 4.0 - 9.5 x10(3)/[facility] RBC 3.68(L) 4.00 - 5.21 x10(6)/[facility] Hemoglobin 10.1(L) 11.7 - 15.5 gm/dL [facility] Hematocrit 31.1(L) 35.7 - 45.8 % [facility] MCV 84.5 82.6 - 94.4 fL [facility] MCH 27.4 27.1 - 32.0 pg [facility] MCHC 32.5 31.7 - 35.0 gm/dL [facility] Platelets 275 145 - 357 x10(3)/[facility] RDWSD 47.4(H) 37.0 - 46.0 fL [facility] RDWCV 15.3(H) 11.5 - 14.1 % [facility] MPV 10.4 7.6 - 12.9 fL [facility] nRBC % Auto 0.0 % [facility] nRBC Abs Auto 0.000 0.000 - 0.000 x10(3)/[facility] Blood specimen (specimen) 04/21/2020 3:30 AM EDT 04/21/2020 3:34 AM EDT Narrative Resulting Agency Comment Spec In Lab Tiesha Morgan MD HEMATOLOGY ORDERABLE S [facility] [place] [place] [address] * (ABNORMAL) Magnesium (04/21/2020 3:30 AM EDT) Magnesium 1.09(H) 0.69 - 1.07 mmol/L [facility] Comment:result rechecked-kk Blood specimen (specimen) 04/21/2020 3:30 AM EDT 04/21/2020 3:34 AM EDT Narrative Resulting Agency Comment Spec In Lab Dale Dash MD CHEMISTRY ORDERABLES [facility] [place] [place] [address] * (ABNORMAL) Prothrombin Time (04/21/2020 3:30 AM EDT) PT 14.4(H) 9.4 - 12.5 sec [facility] INR 1.2 [facility] Comment: An INR <2.0 indicates adequate [...] Lab Magdalene Lopez MD HEMATOLOGY ORDERABLE S [facility] [place] [place] [address] * (ABNORMAL) Comprehensive metabolic panel (non-fasting) (04/21/2020 3:30 AM EDT) Glucose Lvl 149 65 - 199 mg/dL [facility] Comment:Diabetes: >=200 mg/d L plus symptoms BUN 39(H) 8 - 18 mg/dL [facility] Creatinine 1.31(H) 0.70 - 1.20 mg/dL [facility] Sodium 138 135 - 145 mmol/L [facility] Potassium 3.7 3.5 - 5.0 mmol/L [facility] Comment: Please note: ??Patients with WBC >100,000 may have falsely elevated Potassium levels. ??For accurate Potassium quantification in these patients send serum separator tube (gold top) for subsequent determinations. ??Contact the Clinical Chemistry Laboratory if there are any questions. Chloride 102 98 - 107 mmol/L [facility] CO2 21(L) 22 - 31 mmol/L [facility] Anion Gap 15 5 - 15 mmol/L [facility] Calcium 8.6 8.5 - 10.5 mg/dL [facility] Total Protein 6.6 6.1 - 8.0 gm/dL [facility] Albumin 3.1(L) 3.2 - 5.2 gm/dL [facility] AST 38(H) 0 - 30 unit/L [facility] Comment:result rechecked-kk ALT 29 0 - 30 unit/L [facility] Alk Phos 257(H) 35 - 105 unit/L [facility] Comment:result rechecked-kk Total Bilirubin 1.0 0.2 - 1.3 mg/dL [facility] Estimated GFR 39(L) >=60 mL/min/1. 73 m?? [facility] Comment: The eGFR was calculated using the CKD-EPI equation. As with all creatinine based estimates of kidney function, eGFR values calculated with the CKD-EPI equation are not accurate in patients with acute kidney failure, extremes of body mass or the acutely ill. http://[employer]/[facility]nkf eGFR 45(L) >=60 mL/min/1. 73 m?? [facility] Comment: The eGFR was calculated using the CKD-EPI equation. As with all creatinine based estimates of kidney function, eGFR values calculated with the CKD-EPI equation are not accurate in patients with acute kidney failure, extremes of body mass or the acutely ill. http://[employer]/DHnkf Blood specimen (specimen) 04/21/2020 3:30 AM EDT 04/21/2020 3:34 AM EDT Narrative Resulting Agency Comment Spec In Lab Dale Dash MD CHEMISTRY ORDERABLES [facility] [place] [address] * (ABNORMAL) Troponin (04/20/2020 11:55 PM EDT) Troponin-T 0.12(H) 0.00 - 0.00 ng/mL [facility] Comment: The 99th percentile [...] ischemia ?? New or presumed new significant GI-xoawgjb-O wave (ST-T) changes or new left bundle [...] additional sample may be indicated. Reference: Third [place] Definition of Myocardial Infarction. Journal of the [place] [employer] 2012;60:1581-98 Blood specimen (specimen) 04/20/2020 11:55 PM EDT 04/21/2020 1:03 AM EDT Narrative Resulting Agency Comment Spec In Lab Hong Rosenthal MD CHEMISTRY ORDERABLES Performing Organization Address [facility] Co de Phone Number [facility] [place] [address] * POCT Glucose (04/20/2020 11:46 PM EDT) POC Glucose 144 65 - 199 mg/dL [facility] Comment: Supplemental ranges: <140 mg/dL before meals <180 mg/dL all other times of the day Blood specimen (specimen) 04/20/2020 11:46 PM EDT 04/20/2020 11:46 PM EDT oHng Rosenthal MD POINT OF CARE TEST O RDERABLES Performing Organization Address City/[facility]/ZIP Co de Phone Number [facility] [place] [place] [address] * POCT Glucose (04/20/2020 7:42 PM EDT) POC Glucose 136 65 - 199 mg/dL [facility] Comment: Supplemental ranges: <140 mg/dL before meals <180 mg/dL all other times of the day Blood specimen (specimen) 04/20/2020 7:42 PM EDT 04/20/2020 7:42 PM EDT Hong Rosenthal MD POINT OF CARE TEST O RDERABLES [facility] [place] [place] [address] * (ABNORMAL) Troponin (04/20/2020 5:35 PM EDT) Troponin-T 0.17(H) 0.00 - 0.00 ng/mL [facility] Comment: The 99th percentile [...] ischemia ?? New or presumed new significant JA-qrmwxey-N wave (ST-T) changes or new left bundle [...] additional sample may be indicated. Reference: Third [place] Definition of Myocardial Infarction. Journal of the [place] [employer] 2012;60:1581-98 Blood specimen (specimen) 04/20/2020 5:35 PM EDT 04/20/2020 5:54 PM EDT Narrative Resulting Agency Comment Spec In Lab Magdalene Lopez MD CHEMISTRY ORDERABLES [facility] [place] [place] [address] * POCT Glucose (04/20/2020 4:01 PM EDT) POC Glucose 135 65 - 199 mg/dL [facility] Comment: Supplemental ranges: <140 mg/dL before meals <180 mg/dL all other times of the day Blood specimen (specimen) 04/20/2020 4:01 PM EDT 04/20/2020 4:01 PM EDT Magdalene Lopez MD POINT OF CARE TEST O RDERABLES Performing Organization Address [facility]/[place] Co de Phone Number [facility] [place] [place] [address] * EKG 12 Lead (04/20/2020 2:08 PM EDT) Ventricular rate 97 BPM MUSE SYSTEM Atrial Rate 97 BPM MUSE SYSTEM P-R Interval 150 ms MUSE SYSTEM QRS Duration 126 ms MUSE SYSTEM Q-T Interval 382 ms MUSE SYSTEM QTC Calculated (Bezet) 485 ms MUSE SYSTEM Calculated P [place] 58 degrees MUSE SYSTEM Calculated R [place] 35 degrees MUSE SYSTEM Calculated T [place] 11 degrees MUSE SYSTEM INTERPRETATION Normal sinus rhythm with sinus arrhythmia Right bundle branch block Abnormal ECG When compared with ECG of 20-APR-2020 11:30, (unconfirmed) No significant change was found Confirmed by Lisbeth Cain ([id number]) on 04/21/2020 3:48:13 PM MUSE SYSTEM 04/20/2020 2:08 PM EDT 04/21/2020 3:48 PM EDT Magdalene Lopez MD ECG ORDERABLES Performing Organization Address [facility]/ZIP Co de Phone Number MUSE SYSTEM * POCT Glucose (04/20/2020 11:32 AM EDT) POC Glucose 140 65 - 199 mg/dL [facility] Comment: Supplemental ranges: <140 mg/dL before meals <180 mg/dL all other times of the day Blood specimen (specimen) 04/20/2020 11:32 AM EDT 04/20/2020 11:32 AM EDT Magdalene Lopez MD POINT OF CARE TEST O RDERABLES Performing Organization Address [facility]/[place] Co de Phone Number [facility] [place] [place] [address] * EKG 12 Lead (04/20/2020 11:30 AM EDT) Ventricular rate 77 BPM MUSE SYSTEM Atrial Rate 77 BPM MUSE SYSTEM P-R Interval 160 ms MUSE SYSTEM QRS Duration 120 ms MUSE SYSTEM Q-T Interval 406 ms MUSE SYSTEM QTC Calculated (Bezet) 459 ms MUSE SYSTEM Calculated P [place] 48 degrees MUSE SYSTEM Calculated R [place] 27 degrees MUSE SYSTEM Calculated T [place] 18 degrees MUSE SYSTEM INTERPRETATION Sinus rhythm [...] Lopez MD ECG ORDERABLES Performing Organization Address [facility]/[place] Co de Phone Number MUSE SYSTEM * (ABNORMAL) Troponin (04/20/2020 11:30 AM EDT) Troponin-T 0.22(H) 0.00 - 0.00 ng/mL [facility] Comment: The 99th percentile [...] ischemia ?? New or presumed new significant CG-ixmhjeq-L wave (ST-T) changes or new left bundle [...] additional sample may be indicated. Reference: Third [place] Definition of Myocardial Infarction. Journal of the [place] [employer] 2012;60:1581-98 Blood specimen (specimen) 04/20/2020 11:30 AM EDT 04/20/2020 11:45 AM EDT Narrative Resulting Agency Comment Spec In Lab Magdalene Lopez MD CHEMISTRY ORDERABLES [facility] [place] [id number] * ECHO COMPLETE (04/20/2020 10:20 AM EDT) EF 59 HEARTLAB SYSTEM Anatomical Region Laterality Modality Other 04/20/2020 Narrative 04/20/2020 12:35 PM EDT Procedure: ?Transthoracic Echocardiogram Patient: ?HEIDY SHANNAN A ? (Age): 1940(79y) Med Rec#: ? [id number] ?Sex: ?F ? Site Loc: ? [facility] ?Ht / Wt: ??152(cm)/86(kg) Pt. Loc: ?ICU ? BSA: ?1.82 Study Date: ?? 04/20/2020 ?Pt. Type: Inpatient Tape: ? Referring: BETHANY IRELAND A Reading: Ari Rutledge ([id number]) City Engineer: Hong Ahn [facility] Interpreting Fellow: Cris Rosario ([id number]) Interpreting Fellow: Oscar Barger ([id number]) Diagnosis: *Nonrheumatic aortic (valve) stenosis (I35.0) BP: [...] Vmax ?1.48 ? m/sec ? MV deceleration [id number] ?msec ? MV A-wave Vmax ?0.78 ? [...] ? Mid-Inferior ?Normal ? Mid-Inferoseptal ?Normal ? [place]-Septal ? Normal ? [place]-Anterior ? Normal ? [place]-Lateral ?Normal ? [place]-Inferior ? Normal ? [place]-Tip ?Normal ? This report has been electronically signed by: Ari Rutledge MD ? 04/20/2020 12:35:04 Images reviewed and interpretation verified [facility] Cardiac Ultrasound Laboratory Procedure Note Ari Rutledge MD - 04/20/2020 Procedure: Transthoracic Echocardiogram Patient: HEIDY Francis (Age): 1940(79y) Med Rec#: [id number] Sex: F Site Loc: [facility] Ht / Wt: 152(cm)/86(kg) Pt. Loc: ICU BSA: 1.82 Study Date: 04/20/2020 Pt. Type: Inpatient Tape: Referring: BETHANY IRELAND A Reading: Ari Rutledge ([id number]) City Engineer: Hong Ahn [facility] Interpreting Fellow: Cris Rosario ([id number]) Interpreting Fellow: Oscar Barger ([id number]) Diagnosis: *Nonrheumatic aortic (valve) stenosis (I35.0) BP: [...] MV E-wave Vmax 1.48 m/sec MV deceleration [id number] msec MV A-wave Vmax 0.78 m/sec MV [...] Normal Mid-Posterolateral Normal Mid-Inferior Normal Mid-Inferoseptal Normal [place]-Septal Normal [place]-Anterior Normal [place]-Lateral Normal [place]-Inferior Normal [place]-Tip Normal This report has been electronically signed by: Ari Rutledge MD 04/20/2020 12:35:04 Images reviewed and interpretation verified [facility]ound [facility] Magdalene Lopez MD ECHO ORDERABLES * POCT Glucose (04/20/2020 8:10 AM EDT) POC Glucose 128 65 - 199 mg/dL [facility] Comment: Supplemental ranges: <140 mg/dL before meals <180 mg/dL all other times of the day Blood specimen (specimen) 04/20/2020 8:10 AM EDT 04/20/2020 8:10 AM EDT Magdalene Lopez MD POINT OF CARE TEST O ISAIAH Performing Organization Address [facility]/ZIP Co de Phone Number [facility] [place] [place] [address] * Lactate, whole blood, send to lab ([facility]) (04/20/2020 5:25 AM EDT) Lactate WB 1.6 0.5 - 2.2 mmol/L [facility] Blood specimen (specimen) Venous Draw / Unknown 04/20/2020 5:25 AM EDT 04/20/2020 6:46 AM EDT Narrative Resulting Agency Comment Spec In Lab Ginna Josue DO CHEMISTRY ORDERABLES Performing Organization Address [facility]/ZIP Co de Phone Number [facility] [place] [place] [address] * POCT Glucose (04/20/2020 5:23 AM EDT) POC Glucose 151 65 - 199 mg/dL [facility] Comment: Supplemental ranges: <140 mg/dL before meals <180 mg/dL all other times of the day Blood specimen (specimen) 04/20/2020 5:23 AM EDT 04/20/2020 5:23 AM EDT Magdalene Lopez MD POINT OF CARE TEST O RDERABLES Performing Organization Address [facility]/ZIP Co de Phone Number [facility] [place] [address] * (ABNORMAL) Differential, Automated (04/20/2020 3:25 AM EDT) Neutrophils % 86.0 % [facility] Neutr Abs (ANC) 15.43(H) 1.70 - 6.10 x10(3)/ L [facility] Lymphocytes % 5.4 % [facility] Lymphocytes Abs 1.0 0.9 - 3.2 x10(3)/[facility] LABORATORY Monocytes % 5.9 % [facility] Monocyte Abs 1.0(H) 0.3 - 0.9 x10(3)/[facility] LABORATORY Eosinophils % 0.4 % [facility] Eosinophils Abs 0.1 0.0 - 0.4 x10(3)/[facility] LABORATORY Basophils % 0.3 % [facility] Basophils Abs 0.1 0.0 - 0.1 x10(3)/[facility] LABORATORY Immature Gran % 2.00 % [facility] Comment: Immature granulocytes(IG's)percentage and absolute count will include metamyelocytes, myelocytes, and promyelocytes. Blood smears from CBCs yielding IG's will be scanned manually for concordance. If this scan disagrees with the automated IG or if promyelocytes are noted, a manual differential will be performed. Nanci Gran Abs 0.36(H) 0.00 - 0.04 x10(3)/ L [facility] Blood specimen (specimen) 04/20/2020 3:25 AM EDT 04/20/2020 3:32 AM EDT Narrative Resulting Agency Comment Spec In Lab Tiesha Morgan MD HEMATOLOGY ORDERABLE S Performing Organization Address [facility]/ZIP Co de Phone Number [facility] [place] [address] * (ABNORMAL) Hemogram (04/20/2020 3:25 AM EDT) WBC 17.9(H) 4.0 - 9.5 x10(3)/[facility] LABORATORY RBC 3.75(L) 4.00 - 5.21 x10(6)/[facility] LABORATORY Hemoglobin 10.3(L) 11.7 - 15.5 gm/dL [facility] Hematocrit 32.6(L) 35.7 - 45.8 % [facility] MCV 86.9 82.6 - 94.4 fL [facility] MCH 27.5 27.1 - 32.0 pg [facility] MCHC 31.6(L) 31.7 - 35.0 gm/dL [facility] Platelets 217 145 - 357 x10(3)/[facility] LABORATORY RDWSD 48.5(H) 37.0 - 46.0 [facility] LABORATORY RDWCV 15.0(H) 11.5 - 14.1 % [facility] MPV 10.7 7.6 - 12.9 fL [facility] nRBC % Auto 0.0 % [facility] nRBC Abs Auto 0.000 0.000 - 0.000 x10(3)/[facility] LABORATORY Blood specimen (specimen) 04/20/2020 3:25 AM EDT 04/20/2020 3:32 AM EDT Narrative Resulting Agency Comment Spec In Lab Tiesha Morgan MD HEMATOLOGY ORDERABLE S [facility] [place] [place] [address] * POCT Glucose (04/20/2020 3:08 AM EDT) POC Glucose 134 65 - 199 mg/dL [facility] Comment: Supplemental ranges: <140 mg/dL before meals <180 mg/dL all other times of the day Blood specimen (specimen) 04/20/2020 3:08 AM EDT 04/20/2020 3:08 AM EDT Magdalene Lopez MD POINT OF CARE TEST O RDERABLES [facility] [place] [place] [address] * Lipase (04/20/2020 2:43 AM EDT) Lipase 11 0 - 60 unit/L [facility] Blood specimen (specimen) Venous Draw / Unknown 04/20/2020 2:43 AM EDT 04/20/2020 3:32 AM EDT Narrative Resulting Agency Comment Spec In Lab Jos Sun MD CHEMISTRY ORDERABLES Performing Organization Address City/[facility]/[place] Co de Phone Number [facility] [place] [address] * (ABNORMAL) Hepatic Function Panel (04/20/2020 2:43 AM EDT) Total Protein Not Perf 6.1 - 8.0 [facility] Comment:Duplicate order, alr addis done in CMP Albumin Not Perf 3.2 - 5.2 [facility] Comment:Duplicate order, alr addis done in CMP AST Not Perf 0 - 30 [facility] Comment:Duplicate order, alr addis done in CMP ALT Not Perf 0 - 30 [facility] Comment:Duplicate order, alr addis done in CMP Alk Phos Not Perf 35 - 105 [facility] Comment:Duplicate order, alr addis done in CMP Total Bilirubin Not Perf 0.2 - 1.3 [facility] Comment:Duplicate order, alr addis done in CMP Bili, Direct 0.5(H) 0.0 - 0.3 mg/dL [facility] Blood specimen (specimen) Venous Draw / Unknown 04/20/2020 2:43 AM EDT 04/20/2020 3:32 AM EDT Narrative Resulting Agency Comment Spec In Lab Jos Sun MD CHEMISTRY ORDERABLES Performing Organization Address City/[facility]/ZIP Co de Phone Number [facility] [place] [address] * Phosphorus (04/20/2020 2:43 AM EDT) [facility] Phosphorus 3.6 2.5 - 4.5 mg/dL [facility] Blood specimen (specimen) Venous Draw / Unknown 04/20/2020 2:43 AM EDT 04/20/2020 3:32 AM EDT Narrative Resulting Agency Comment Spec In Lab Tiesha Morgan MD CHEMISTRY ORDERABLES Performing Organization Address [facility]/[place] Co de Phone Number [facility] [place] [place] [address] * Magnesium (04/20/2020 2:43 AM EDT) [facility] Magnesium 0.71 0.69 - 1.07 mmol/L [facility] Blood specimen (specimen) Venous Draw / Unknown 04/20/2020 2:43 AM EDT 04/20/2020 3:32 AM EDT Narrative Resulting Agency Comment Spec In Lab Tiesha Morgan MD CHEMISTRY ORDERABLES Performing Organization Address [facility]/[place] Co de Phone Number [facility] [place] [address] * (ABNORMAL) Comprehensive metabolic panel (non-fasting) (04/20/2020 2:43 AM EDT) [facility] Glucose Lvl 129 65 - 199 mg/dL [facility] Comment:Diabetes: >=200 mg/d L plus symptoms BUN 30(H) 8 - 18 mg/dL [facility] Creatinine 1.26(H) 0.70 - 1.20 mg/dL [facility] Sodium 134(L) 135 - 145 mmol/L [facility] Potassium 3.9 3.5 - 5.0 mmol/L [facility] Comment: Please note: ??Patients with WBC >100,000 may have falsely elevated Potassium levels. ??For accurate Potassium quantification in these patients send serum separator tube (gold top) for subsequent determinations. ??Contact the Clinical Chemistry Laboratory if there are any questions. Chloride 100 98 - 107 mmol/L [facility] CO2 20(L) 22 - 31 mmol/L [facility] Anion Gap 14 5 - 15 mmol/L [facility] Calcium 8.3(L) 8.5 - 10.5 mg/dL [facility] Total Protein 6.1 6.1 - 8.0 gm/dL [facility] Albumin 2.8(L) 3.2 - 5.2 gm/dL [facility] AST 18 0 - 30 unit/L [facility] ALT 22 0 - 30 unit/L [facility] Alk Phos 139(H) 35 - 105 unit/L [facility] Total Bilirubin 1.5(H) 0.2 - 1.3 mg/dL [facility] Estimated GFR 40(L) >=60 mL/min/1. 73 m?? [facility] Comment: The eGFR was calculated using the CKD-EPI equation. As with all creatinine based estimates of kidney function, eGFR values calculated with the CKD-EPI equation are not accurate in patients with acute kidney failure, extremes of body mass or the acutely ill. http://[employer]/[facility]nkf eGFR 47(L) >=60 mL/min/1. 73 m?? [facility] Comment: The eGFR was calculated using the CKD-EPI equation. As with all creatinine based estimates of kidney function, eGFR values calculated with the CKD-EPI equation are not accurate in patients with acute kidney failure, extremes of body mass or the acutely ill. http://[employer]/[facility]nkf Blood specimen (specimen) 04/20/2020 2:43 AM EDT 04/20/2020 3:12 AM EDT Narrative Resulting Agency Comment Spec In Lab Magdalene Lopez MD CHEMISTRY ORDERABLES Performing Organization Address [facility]/[place] Co de Phone Number [facility] [place] [address] * (ABNORMAL) Prothrombin Time (04/20/2020 2:43 AM EDT) [facility] PT 15.7(H) 9.4 - 12.5 sec [facility] INR 1.4 [facility] Comment: An INR <2.0 indicates adequate [...] MD HEMATOLOGY ORDERABLE S Performing Organization Address [facility] Co de Phone Number [facility] [place] [address] * Troponin (04/20/2020 2:43 AM EDT) [facility] Troponin-T <0.01 0.00 - 0.00 ng/mL [facility] Comment: The 99th percentile [...] ischemia ?? New or presumed new significant CL-nxqizwj-M wave (ST-T) changes or new left bundle [...] additional sample may be indicated. Reference: Third [place] Definition of Myocardial Infarction. Journal of the [place] [employer] 2012;60:1581-98 Blood specimen (specimen) 04/20/2020 2:43 AM EDT 04/20/2020 3:12 AM EDT Narrative Resulting Agency Comment Spec In Lab Magdalene Lopez MD CHEMISTRY ORDERABLES Performing Organization Address City/[facility]/ZIP Co de Phone Number [facility] [place] [address] * EKG 12 Lead (04/20/2020 2:33 AM EDT) Ventricular rate 168 BPM MUSE SYSTEM Atrial Rate 174 BPM MUSE SYSTEM QRS Duration 128 ms MUSE SYSTEM Q-T Interval 288 ms MUSE SYSTEM QTC Calculated (Bezet) 481 ms MUSE SYSTEM Calculated R [place] 82 degrees MUSE SYSTEM Calculated T [place] -18 degrees MUSE SYSTEM INTERPRETATION Atrial fibrillation [...] fellows interpretation Confirmed by fellow Ren Quinn ([id number]) on 04/20/2020 11:47:57 AM Confirmed by Lisbeth Cain ([id number]) on 04/21/2020 7:47:13 PM MUSE SYSTEM 04/20/2020 2:33 AM EDT 04/21/2020 7:47 PM EDT Magdalnee Lopez MD ECG ORDERABLES Performing Organization Address City/[facility]/ZIP Co de Phone Number MUSE SYSTEM * POCT Glucose (04/20/2020 12:36 AM EDT) POC Glucose 112 65 - 199 mg/dL [facility] Comment: Supplemental ranges: <140 mg/dL before meals <180 mg/dL all other times of the day Blood specimen (specimen) 04/20/2020 12:36 AM EDT 04/20/2020 12:36 AM EDT Magdalene Lopez MD POINT OF CARE TEST O RDERABLES Performing Organization Address [facility]/[place] Co de Phone Number [facility] [place] [address] * EKG 12 Lead (04/19/2020 8:23 PM EDT) Ventricular rate 100 BPM MUSE SYSTEM Atrial Rate 100 BPM MUSE SYSTEM P-R Interval 156 ms MUSE SYSTEM QRS Duration 116 ms MUSE SYSTEM Q-T Interval 368 ms MUSE SYSTEM QTC Calculated (Bezet) 474 ms MUSE SYSTEM Calculated P [place] 59 degrees MUSE SYSTEM Calculated R [place] 26 degrees MUSE SYSTEM Calculated T [place] 2 degrees MUSE SYSTEM INTERPRETATION Normal sinus rhythm Right bundle branch block Abnormal ECG No previous ECGs available Confirmed by Lisbeth Cain ([place]) on 04/21/2020 3:47:08 PM MUSE SYSTEM 04/19/2020 8:23 PM EDT 04/21/2020 3:47 PM EDT Magdalene Lopez MD ECG ORDERABLES Performing Organization Address [facility] Phone Number MUSE SYSTEM * POCT Glucose (04/19/2020 7:50 PM EDT) [facility] POC Glucose 153 65 - 199 mg/dL [facility] Comment: Supplemental ranges: <140 mg/dL before meals <180 mg/dL all other times of the day Blood specimen (specimen) 04/19/2020 7:50 PM EDT 04/19/2020 7:50 PM EDT Magdalene Lopez MD POINT OF CARE TEST O RDERABLES Performing Organization Address [facility]/[place] Co de Phone Number [facility] [place] [address] * POCT Glucose (04/19/2020 5:58 PM EDT) POC Glucose 151 65 - 199 mg/dL [facility] Comment: Supplemental ranges: <140 mg/dL before meals <180 mg/dL all other times of the day Blood specimen (specimen) 04/19/2020 5:58 PM EDT 04/19/2020 5:58 PM EDT Magdalene Lopez MD POINT OF CARE TEST O RDERABLES [facility] [place] [address] * Request For 2nd Read CT Abdomen [...] below. ? Electronically signed by: Harris Shepard [facility] ([phone]), at 04/19/2020 4:27 PM Narrative 04/19/2020 4:27 PM EDT EXAMINATION: ??REQUEST FOR 2ND READ CT ABDOMEN AND PELVIS CLINICAL HISTORY: ??cholecystitis, eval CBD as well; What Modality is the exam? CT Scan; Body Part (please add comments as necessary): abd/pelvis; Sending Institution [facility]; Date of exam 20200418; I believe [...] (please add comments as necessary): abd/pelvis;Sending Institution [facility]; Date of exam 20200418; I believe [...] number below. Electronically signed by: Harris Shepard [facility]([phone]), at 04/19/2020 4:27 PM Magdalene Lopez MD IMG OUTSIDE INTERPRE TATION ORDERABLES * (ABNORMAL) Differential, Automated (04/19/2020 4:04 PM EDT) Neutrophils % 85.2 % [facility] Neutr Abs (ANC) 14.50(H) 1.70 - 6.10 x10(3)/[facility] LABORATORY Lymphocytes % 7.8 % [facility] Lymphocytes Abs 1.3 0.9 - 3.2 x10(3)/[facility] LABORATORY Monocytes % 5.7 % [facility] Monocyte Abs 1.0(H) 0.3 - 0.9 x10(3)/[facility] LABORATORY Eosinophils % 0.2 % [facility] Eosinophils Abs 0.0 0.0 - 0.4 x10(3)/[facility] LABORATORY Basophils % 0.2 % [facility] Basophils Abs 0.0 0.0 - 0.1 x10(3)/[facility] LABORATORY Immature Gran % 0.90 % [facility] Comment: Immature granulocytes(IG's)percentage and absolute count will include metamyelocytes, myelocytes, and promyelocytes. Blood smears from CBCs yielding IG's will be scanned manually for concordance. If this scan disagrees with the automated IG or if promyelocytes are noted, a manual differential will be performed. Nanci Gran Abs 0.16(H) 0.00 - 0.04 x10(3)/[facility] LABORATORY Blood specimen (specimen) 04/19/2020 4:04 PM EDT 04/19/2020 4:30 PM EDT Narrative Resulting Agency Comment Spec In Lab Magdalene Lopez MD HEMATOLOGY ORDERABLE S [facility] [place] [address] * (ABNORMAL) Hemogram (04/19/2020 4:04 PM EDT) WBC 17.0(H) 4.0 - 9.5 x10(3)/[facility] LABORATORY RBC 4.07 4.00 - 5.21 x10(6)/[facility] LABORATORY Hemoglobin 11.2(L) 11.7 - 15.5 gm/dL [facility] Hematocrit 34.8(L) 35.7 - 45.8 % [facility] MCV 85.5 82.6 - 94.4 [facility]ORY MCH 27.5 27.1 - 32.0 pg [facility] MCHC 32.2 31.7 - 35.0 gm/dL [facility] Platelets 220 145 - 357 x10(3)/[facility] LABORATORY RDWSD 47.3(H) 37.0 - 46.0 [facility] RDWCV 15.1(H) 11.5 - 14.1 % [facility] MPV 11.3 7.6 - 12.9 [facility] nRBC % Auto 0.0 % [facility] nRBC Abs Auto 0.000 0.000 - 0.000 x10(3)/[facility] LABORATORY Blood specimen (specimen) 04/19/2020 4:04 PM EDT 04/19/2020 4:30 PM EDT Narrative Resulting Agency Comment Spec In Lab Magdalene Lopez MD HEMATOLOGY ORDERABLE S [facility] [place] [place] [address] * (ABNORMAL) Prothrombin Time (04/19/2020 4:04 PM EDT) PT 16.9(H) 9.4 - 12.5 sec [facility] INR 1.5 [facility] Comment: An INR <2.0 indicates adequate [...] Lab Magdalene Lopez MD HEMATOLOGY ORDERABLE S [facility] [place] [place] [address] * (ABNORMAL) Comprehensive metabolic panel (non-fasting) (04/19/2020 4:04 PM EDT) Glucose Lvl 146 65 - 199 mg/dL [facility] Comment:Diabetes: >=200 mg/d L plus symptoms BUN 26(H) 8 - 18 mg/dL [facility] Creatinine 1.37(H) 0.70 - 1.20 mg/dL [facility] Sodium 135 135 - 145 mmol/L [facility] Potassium 4.1 3.5 - 5.0 mmol/L [facility] Comment: Please note: ??Patients with WBC >100,000 may have falsely elevated Potassium levels. ??For accurate Potassium quantification in these patients send serum separator tube (gold top) for subsequent determinations. ??Contact the Clinical Chemistry Laboratory if there are any questions. Chloride 97(L) 98 - 107 mmol/L [facility] CO2 20(L) 22 - 31 mmol/L [facility] Anion Gap 18(H) 5 - 15 mmol/L [facility] Calcium 9.1 8.5 - 10.5 mg/dL [facility] Total Protein 7.1 6.1 - 8.0 gm/dL [facility] Albumin 3.6 3.2 - 5.2 gm/dL [facility] AST 28 0 - 30 unit/L [facility] ALT 30 0 - 30 unit/L [facility] Alk Phos 148(H) 35 - 105 unit/L [facility] Total Bilirubin 2.1(H) 0.2 - 1.3 mg/dL [facility] Estimated GFR 37(L) >=60 mL/min/1. 73 m?? [facility] Comment: The eGFR was calculated using the CKD-EPI equation. As with all creatinine based estimates of kidney function, eGFR values calculated with the CKD-EPI equation are not accurate in patients with acute kidney failure, extremes of body mass or the acutely ill. http://[employer]/[facility] eGFR 42(L) >=60 mL/min/1. 73 m?? [facility] Comment: The eGFR was calculated using the CKD-EPI equation. As with all creatinine based estimates of kidney function, eGFR values calculated with the CKD-EPI equation are not accurate in patients with acute kidney failure, extremes of body mass or the acutely ill. http://[employer]/[facility] Blood specimen (specimen) 04/19/2020 4:04 PM EDT 04/19/2020 4:30 PM EDT Narrative Resulting Agency Comment Spec In Lab Magdalene Lopez MD CHEMISTRY ORDERABLES [facility] [place] [place] [address] * ABORH Recheck Status (04/19/2020 3:57 PM EDT) ABORH Recheck Order Order Placed [facility] ABORH Type Recheck Complete [facility] Blood specimen (specimen) 04/19/2020 3:57 PM EDT 04/19/2020 4:23 PM EDT Narrative Resulting Agency Comment Spec In Lab Magdalene Lopez MD BLOOD BANK LAB ORDER JAMIE Performing Organization Address City/[facility]/ZIP Co de Phone Number [facility] [place] [place] [address] * Antibody screen (04/19/2020 3:57 PM EDT) Ab Screen Interp Negative [facility] Expires at [id number] on: 04/22/2020 [facility] Blood specimen (specimen) 04/19/2020 3:57 PM EDT 04/19/2020 4:23 PM EDT Narrative Resulting Agency Comment Spec In Lab Magdalene Lopez MD BLOOD BANK LAB ORDER JAMIE Performing Organization Address City/[facility]/ZIP Co de Phone Number [facility] [place] [place] [address] * ABO/Rh Typing (04/19/2020 3:57 PM EDT) ABORH Type O Pos [facility] Blood specimen (specimen) 04/19/2020 3:57 PM EDT 04/19/2020 4:23 PM EDT Narrative Resulting Agency Comment Spec In Lab Magdalene Lopez MD BLOOD BANK LAB ORDER JAMIE Performing Organization Address City/[facility] Co de Phone Number [facility] [place] [place] [address] documented in this encounter Visit Diagnoses Not [...] 81 mg, Oral, DAILY, First dose on Noreen 05/06/20 at 1315, Until Discontinued, Routine Given 05/08/2020 [...] Given 05/06/2020 9:27 AM EDT 75 mg clopidogreL (Plavix) tablet ONCE PRN, Starting on Sun04/21/20 at 1642, Until Sun04/23/20 at 1041, Intra-Operative (Intra-Procedure), Routine Given 04/21/2020 4:42 PM EDT 600 mg dextrose 10% infusion 250 mL, at [...] 25 mcg fentaNYL 50 mcg/mL multi-dose injection ONCE PRN, Starting on Sun04/21/20 at 1628, Until Sun04/23/20 at 1041, Cath (Intra-Procedure), Routine Given 04/21/2020 5:48 PM EDT 25 mcg Given 04/21/2020 5:31 PM EDT 25 mcg Given 04/21/2020 5:02 PM EDT 25 mcg glucagon (human recombinant) [...] 1,000 unit/mL injection ONCE PRN, Starting on Sun04/21/20 at 1619, Until Sun04/23/20 at 1041, Cath (Intra-Procedure), Routine Given 04/21/2020 5:11 PM EDT 2,000 Units Given 04/21/2020 4:19 PM EDT 2,000 Units insulin glargine VIAL injection 25 Units [...] 1 Units iohexoL (OMNIPAQUE) 350 mg/mL solution ONCE PRN, Starting on Sun04/21/20 at 1800, Until Sun04/23/20 at 1041, Cath (Intra-Procedure), Routine Given 04/21/2020 6:00 PM EDT 150 mLs labetalol (NORMODYNE,TRANDATE) injection 20 mg 20 mg, Intravenous, EVERY 2 HOURS PRN, Starting on 04/24/20 at 1613, Until 05/08/20 at 1535, High Blood Pressure, Routine Given 04/25/2020 10:22 PM EDT 20 mg Given 04/25/2020 4:35 [...] Given 05/05/2020 8:22 PM EDT 300 mg midazolam (PF) (VERSED) multi-dose injection ONCE PRN, Starting on Sun04/21/20 at 1628, Until Sun04/23/20 at 1041, Cath (Intra-Procedure), Routine Given 04/21/2020 5:48 PM EDT 0.5 mg Given 04/21/2020 5:26 PM EDT 0.5 mg Given 04/21/2020 4:28 PM EDT 1 mg nitroGLYcerin 50 mg in dextrose 5% 250 mL infusion CONTINUOUS PRN, Starting on Sun04/21/20 at 1707, Until Sun04/23/20 at 1041, Cath (Intra-Procedure), Routine Rate/Dose Change 04/22/2020 12:18 AM EDT 20 mcg/min 6 mL/hr Rate/Dose Change 04/22/2020 12:08 AM EDT 40 mcg/min 12 mL/ hr Rate/Dose Verify 04/22/2020 12:00 AM EDT 18 mL/ hr oxyCODONE (Roxicodone) tablet 5 mg 5 mg, [...] Provider: Kristi Gallegos, LYLA)204 (Given - Provider: eTte Tanner, LYLA) 0600 (Not Given - Provider: Tete Tanner, RN - Reason: Patient/family refused)1230 (Not Given - Provider: Kristi Gallegos, LYLA - Reason: Patient/family refused) AMIOdarone (Cordarone; Pacerone) tablet 200 mg 200 mg, Oral, 2 TIMES DAILY, First dose on Noreen 04/22/20 at 0900, Until Discontinued, Routine 09 (Given - Provider: Fahad Muhammad RN)2049 (Given - Provider: Sandy Subramanian RN) 0810 (Given - Provider: Kristi Gallegos RN)2048 (Given - Provider: Tete Tanner, RN) 08 (Given - Provider: Kristi Gallegos RN) amoxicillin-clavulanate (Augmentin) 875-125 mg per tablet 1 tablet 1 tablet, Oral, 2 TIMES DAILY, First dose on Sun04/30/20 at 2100, Until Discontinued, Routine, Indication for (Active or Suspected): GI/Intra-abdominal 926 (Given - Provider: Fahad Muhammad RN)2048 (Given - Provider: Sandy Subramanian, LYLA) 810 (Given - Provider: Kristi Gallegos, LYLA)2048 (Given - Provider: Tete Tanner, RN) 804 (Given - Provider: Kristi Gallegos, LYLA) aspirin chewable tablet 81 mg 81 mg, Oral, DAILY, First dose on Sun05/06/20 at 1315, Until Discontinued, Routine 1505 (Given - Provider: Fahad Muhammad RN) 08 (Given - Provider: Kristi Gallegos RN) 08 (Given - Provider: Kristi Gallegos RN) clopidogreL (Plavix) tablet 75 mg 75 mg, Oral, DAILY, First dose on Sun04/22/20 at 0900, Until Discontinued, Routine 926 (Given - Provider: Fahad Muhammad RN) 810 (Given - Provider: Kristi Gallegos RN) 08 (Given - Provider: Kristi Gallegos RN) insulin glargine VIAL injection 25 Units 25 Units, Subcutaneous, NIGHTLY, First dose on Sun04/19/20 at 2100, Until Discontinued, Routine 2056 (Given - Provider: Sandy Subramanian RN) 2049 (Given - Provider: Tete Tanner, LYLA) [...] Gallegos RN)2100 (Not Given - Provider: Tete Tanner, RN - Reason: Order parameters not met) 0730 (Not Given - Provider: Tete Tanner RN - Reason: Order parameters not met)1125 (Given - Provider: Kristi Gallegos, LYLA) losartan (Cozaar) tablet 25 mg 25 mg, Oral, DAILY, First dose on Sun05/01/20 at 1100, Until Discontinued, Routine 09 (Given - Provider: Fahad Muhammad RN) 08 (Given - Provider: Kristi Gallegos, LYLA) 08 (Given - Provider: Kristi Gallegos, LYLA) melatonin tablet 6 mg 6 mg, Oral, NIGHTLY, First dose on Sun04/30/20 at 2100, Until Discontinued, Routine 2049 (Given - Provider: Sandy Subramanian RN) 2048 (Given - Provider: Tete Tanner, LYLA) metoprolol succinate XL (Toprol-XL) tablet 300 mg 300 mg, Oral, NIGHTLY, First dose on 04/24/20 at 2100, Until Discontinued, DO NOT CRUSH OR OPEN, Routine 2048 (Given - Provider: Sandy Subramanian, LYLA) 2048 (Given - Provider: Tete Tanner, LYLA) pantoprazole EC (Protonix) tablet 40 mg 40 mg, Oral, 2 TIMES DAILY, First dose on 05/03/20 at 2100, Until Discontinued, DO NOT CRUSH OR OPEN 927 (Given - Provider: Fahad Muhammad RN)2049 (Given - Provider: Sandy Subramanian RN) 08 (Given - Provider: Kristi Gallegos, LYLA)2048 (Given - Provider: Tete Tanner, RN) 08 (Given - Provider: Kristi Gallegos, LYLA) polyethylene glycoL (Miralax) packet 17 g 17 g, Oral, DAILY, First dose on Sun04/20/20 at 0830, Until Discontinued, Hold for loose stools please! Thanks!, Routine 0926 (Not Given - Provider: Fahad Muhammad RN [...] RN) 165 (Given - Provider: Kristi Gallegos, RN) senna-docusate (Pericolace) 8.6-50 mg per tablet 2 tablet 2 tablet, Oral, 2 TIMES DAILY, First dose on Sun04/20/20 at 0900, Until Discontinued, Hold for loose stools please! Thanks!, Routine 09 (Not Given - Provider: Fahad Muhammad RN - Reason: Patient/family refused)2100 (Not Given - Provider: Sandy Subramanian RN [...] Discontinued, Routine 0934 (Given - Provider: Fahad Muhammad RN)2057 (Given - Provider: Sandy Subramanian, LYLA) 08 (Given - Provider: Kristi Gallegos, LYLA)2050 (Given - Provider: Tete Tanner, LYLA) 08 (Given - Provider: Kristi Gallegos RN) sodium chloride 0.9 % (flush) flush 5 mL 5 mL, Intravenous, 2 TIMES DAILY, First dose on Sun05/02/20 at 1145, Until Discontinued, Routine 0933 (Given - Provider: Fahad Muhammad RN)2057 (Given - Provider: Sandy Subramanian RN) 08 (Given - Provider: Kristi Gallegos, LYLA)09 (Not Given - Provider: Kristi Gallegos RN - Reason: Patient/family refused)2050 (Given - Provider: Tete Tanner RN) 08 (Given - Provider: Kristi Gallegos RN) PRN Medication Order 05/06/2020 05/07/2020 05/08/2020 [...] Routine documented in this encounter Care Teams Erosion Control Coordinator Relationship Specialty Start Date End Date Reshma Baig MD [address] [place] [address] PCP - General Family Medicine 11/08/18 06/23/21 documented as of this encounter
--- OUTSIDE RECORDS SUMMARY | 2024-03-17 14:29 | XMS_ITS | Encounter Summary ---
Author Organization [facility] [place] [address] Care Team Providers Care Convention Manager Name Role Phone Hannah Gagnon MD Primary Care Provider [phone] Reason for Visit * Reason Onset Date Comments Medication Refill 07/10/2013 Encounter Details Date Type Department Care Team (Late st Contact Info) Description 07/10/2013 Refill [place] [address] Alissa Malave APRLTAC, [facility] [place] [address] Social History Tobacco Use Types Packs/Day Years Used Date Smoking Tobacco: Never Sex and Gender Information Value Date Recorded Sex Assigned at Not on file Gender Identity Not on file Sexual Orientation Not on file documented as of this encounter Plan of Treatment Not on file documented as of this encounter Visit Diagnoses Not on filedocumented in this encounter Care Teams Convention Manager Relationship Specialty Start Date End Date Hannah Gagnon MD [address] [place] [address] PCP - General 08/08/11 11/07/18 documented as of this encounter
--- OUTSIDE RECORDS SUMMARY | 2024-03-17 14:29 | XMS_ITS | Encounter Summary ---
[place] [address] Care Team Providers Care Stock Unloader Name Role Phone Hannah Gagnon MD Primary Care Provider [phone] Encounter Details Date Type Department Care Team (Latest Contact Info) Description 02/28/2017 10:00 AM EDT Laboratory Appointment Lab [place] [address] Uncontrolled type 2 diabetes mellitus without complication, with long-term current use of insulin Social History Tobacco Use Types Packs/Day Years [...] Associated Diagnosis Comments U ALBUMIN/CRE RATIO Routine 02/28/2017 1 0:33 AM EDT Uncontrolled type 2 diabetes mellitus without complication, with long-term current use of insulin LDL CHOLESTEROL, DIRECT Routine 02/28/2017 10:18 AM EDT Uncontrolled type 2 diabetes mellitus without complication, with long-term current use of insulin HEMOGLOBIN A1C Routine 02/28/2017 10:18 AM EDT Uncontrolled type 2 diabetes mellitus without complication, with long-term current use of insulin documented in this encounter Results * U Albumin/Cre Ratio (02/28/2017 10:33 AM EDT) Alb/Cr Ratio, Random 10 0 - 29 mcg/mg Cr [facility] Comment: Reference Ranges: <30 mcg/mg: Normal [...] 362 U Albumin Conc, Random 7.3 mg/L [facility] U Creatinine 76 mg/dL [facility] Urine specimen (specimen) 02/28/2017 10:33 AM EDT 02/28/2017 10:54 AM EDT Narrative Resulting Agency Comment Spec In Lab Vahid Philip MD URINE ORDERABLES Performing Organization Address [facility] Co de Phone Number [facility] [place] [address] * LDL Cholesterol, Direct (02/28/2017 10:18 AM EDT) LDL Chol Direct 73 <=190 mg/dL [facility] Blood specimen (specimen) 02/28/2017 10:18 AM EDT 02/28/2017 10:25 AM EDT Narrative Resulting Agency Comment Spec In Lab Vahid Philip MD CHEMISTRY ORDERABLES Performing Organization Address [facility]/ZIP Co de Phone Number [facility] [place] [address] * (ABNORMAL) Hemoglobin A1c (02/28/2017 10:18 AM EDT) Hemoglobin A1C 10.0(H) 4.3 - 5.6 % [facility] Comment: Reference Range: 4.3 - 5.6% [...] [id number] Est Avg Gluc See note mg/dL [facility] Comment: Estimated Average Glucose not appropriate [...] into estimated average glucose values. ??Diabetes Care 2008:31(8):2564-8007. Blood specimen (specimen) 02/28/2017 10:18 AM EDT 02/28/2017 10:25 AM EDT Narrative Resulting Agency Comment Spec In Lab Vahid Philip MD [place] [address] documented in this encounter Visit Diagnoses Diagnosis Uncontrolled type 2 diabetes mellitus without complication, with long-term current use of insulin documented in this encounter Care Teams Stock Unloader Relationship Specialty Start Date End Date Hannah Gagnon MD [address] [place] [address] PCP - General 08/08/11 11/07/18 documented as of this encounter
--- OUTSIDE RECORDS SUMMARY | 2024-03-17 14:29 | XMS_ITS | Encounter Summary ---
Author Organization [facility] Address [facility] [address] Care Team Providers Care Area Director Of Home Health Sales Name Role Phone Reshma Baig MD Primary Care Provider [phone] Encounter Details Date Type Department Care Team (Late st Contact Info) Description 12/30/2018 Refill Dermatology at [address] [place] [address] Meera Castro, OUTSIDE SALESPERSON Social History Tobacco Use Types Packs/Day Years [...] on filedocumented in this encounter Care Teams Area Director Of Home Health Sales Relationship Specialty Start Date End Date Reshma Baig MD [address] [place] [address] PCP - General Family Medicine 11/08/18 06/23/21 documented as of this encounter
--- OUTSIDE RECORDS SUMMARY | 2024-03-17 14:29 | XMS_ITS | Encounter Summary ---
Author Organization [facility] [place] [address] Care Team Providers Care Supervisor Meter Shop Name Role Phone Hannah Gagnon MD Primary Care Provider [phone] Reason for Visit * Reason Comments Diabetes Encounter Details Date Type Department Care Team ([facility] st Contact Info) Description 07/01/2013 10:30 AM EST Office [place] [address] Alissa Malave APRN [facility] [place] [address] Type II or unspecified type diabetes mellitus without mention of complication, uncontrolled (Primary Dx) Discharge Disposition: Home Social History Tobacco Use Types Packs/Day Years Used Date Smoking Tobacco: Never Sex and Gender Information Value Date Recorded Sex Assigned at Not on file Gender Identity Not on file Sexual Orientation Not on file documented as of this encounter Last Filed Vital Signs Vital Sign Reading Time Taken Comments Blood Pressure 154/70 07/01/2013 11:37 AM EST Pulse 74 07/01/2013 11:37 AM EST Temperature - - Respiratory Rate - - Oxygen Saturation - - Inhaled Oxygen Concentration - - Weight 87.6 kg (193 lb 3.2 oz) 07/01/2013 11:37 AM EST Height - - Body Mass Index 36.2 12/24/2012 1:12 PM EDT documented in this encounter Patient Instructions * Patient Instructions* Alissa Malave APRN - 07/01/2013 11:55 AM EST Take 2 of the lisinopril 10mg tablets and then start one of the 20mg tablet daily Okay to finish amlodipine 2.5 mg but do not refill Okay to increase AM dose of mix insulin by 4 units weekly to get evening glucose under 140 documented in this encounter Progress Notes * Alissa Malave APRN - 07/01/2013 12:36 PM EST DATE OF VISIT: 07/01/2013 REASON FOR VISIT: Follow up type 2 DM, in continued fair control. Also, follow up hypertension, close to goal; hyperlipidemia; and overweight. BRIEF HISTORY: Presents and states glucose levels are usually 120 to 130 in the morning and 175 to 220 in the evening. DIABETES REGIMEN: Humalog Mix 75/25 KwikPen 60 units in a.m., 35 to 40 units in p.m. SBGM: Two times a day. DX CODE: 250.02. DATE OF DIAGNOSIS OF DIABETES: 2008. PREVENTION STRATEGIES: She does take an KOLTON inhibitor and a statin, does have an annual dilated eye exam, declines a flu vaccine, does go to the dentist. 24-HOUR MEAL PLAN: Breakfast is usually an oatmeal, although she had a doughnut today. Lunch is chicken. Dinner has been beef and squash and potatoes. PHYSICAL ACTIVITY: Not much recently because she fractured her toe bumping it on an antique rocking chair. REVIEW OF SYSTEMS: Depression and Mood: Overall is doing okay. 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 Eyes: No recent vision changes. No headaches, no chest pain, no shortness of breath. No GI symptoms. Appetite is good, desires weight loss. Sleep Pattern: Sleeps in a recliner, states if she sleeps in the bed her joints hurt too much. Extremities: Has a lot of arthritis pain, worse in her knees. PHYSICAL EXAMINATION: Appearance: She appears in very good health. She is overweight. Weight 192 pounds, same as it has been; blood pressure 154/76. Eyes: No retinopathy by green light exam. Neck: No thyromegaly or lymphadenopathy. Heart: Regular rate and rhythm. No murmurs. Lungs: Clear to auscultation. Feet: Left fifth toe is obviously swollen with some erythema. Pulses are normal. Neurologic: Normal sensation to 10 g of pressure. LABORATORY DATA: Lab done today, hemoglobin A1c 8.4%, previous was 8.3%. IMPRESSION AND PLAN: Diabetes mellitus type 2, in continued fair control. Advised to increase a.m. mix insulin dose by 4 units weekly to get glucose levels before evening meal closer to 130. Reviewed a healthy meal plan and advised 1500-calorie intake for desired weight loss. She is not really counting carbohydrates, but she states she does enjoy eating fruits. Encouraged appointment with VIV LANZA at followup, which she agrees with. Return to office in October. Will check CMP, hemoglobin A1c, TSH, microalbumin, HDL, VLDL. The patient has been taking low dose of Norvasc, will discontinue that and increase lisinopril dose to 20 mg daily to get blood pressure under 130/80. Recent Results (from the past 72 hour(s)) HEMOGLOBIN A1C Component Value Range Hemoglobin A1C 8.4 (*) 4.3 - 6.1 % Est Avg Gluc See note documented in this encounter Plan of Treatment Not on file documented as of this encounter Procedures Procedure Name Priority Date/Time Associated Diagnosis Comments HEMOGLOBIN A1C Routine 07/01/2013 10:45 AM EST Type II or unspecified type diabetes mellitus without mention of complication, uncontrolled documented in this encounter Results * Microalbumin, urine, random (04/15/2014 2:00 PM EDT) U Creatinine 81 mg/dL CERNER MILLENNIUM U Albumin Conc, Random 4.9 mg/L CERNER MILLENNIUM Alb/Cr Ratio, Random 6 mcg/mg Cr CERNER MILLENNIUM Comment: Reference Range* Random collection (mcg/mg creatinine) Normal ?<30 Microalbuminuria ?? 30 - 300 Clinical Albuminuria ?? >300 *[place] Diabetes Association. Diabetic Nephropathy. Diabetes Care 1997;(Suppl 1):S24-S27 Exercise within 24 hour, infection, fever, CHF, marked hyperglycemia, and marked hypertension may elevate urinary albumin excretion over baseline values. Urine specimen (specimen) 04/15/2014 2:00 PM EDT 04/15/2014 2:25 PM EDT Narrative Resulting Agency Comment Spec In Lab Vahid Philip MD URINE ORDERABLES Performing Organization Address [facility] de Phone Number [facility] * (ABNORMAL) LDL Cholesterol, Direct (04/15/2014 12:50 PM EDT) LDL Chol Direct 158(H) <=99 mg/dL [facility] Comment: The National Cholesterol Education Program (NCEP) has set the following guidelines for LDL Cholesterol: Reference range: ?? Optimal: ?<100 mg/dL ?? Near Optimal/Above Optimal: ?? 100-129 mg/dL ?? Borderline high: ?130-159 mg/dL ?? High: ? 160-189 mg/dL ?? Very high: ?>qw=227 mg/dL RAMONA 2001: 28519):[id number] Blood specimen (specimen) 04/15/2014 12:50 PM EDT 04/15/2014 12:57 PM EDT Narrative Resulting Agency Comment Spec In Lab Vahid Philip MD CHEMISTRY ORDERABLES Performing Organization Address [facility] de Phone Number [facility] * (ABNORMAL) HDL/Cholesterol Profile (04/15/2014 12:50 PM EDT) Chol, Total 225(H) <=199 mg/dL [facility] Comment: Recommendations of the NCEP Adult Treatment Panel for the following risk cutoff thresholds for the [place] population: Desirable: <200 mg/dL Borderline High: 200-239 mg/dL High: > or = 240 mg/dL HDL 44 >=40 mg/dL YOUSIF KEVIN Comment: Reference range: ??Low HDL: ?? < 40 mg/dL ??Normal: ?40-60 mg/dL ??Desirable: > 60 mg/dL RAMONA 2001; 285(19):6831-0264 Chol/HDL Ratio 5.1 ratio GOPI KEVIN Comment: A Cholesterol to HDL ratio below 4:1 is desirable. ??Studies suggest that increased CAD risk occurs at ratios above 5 for females and above 6 for men. ? [place] Heart Association ??(http://www.americanheart.org) ? Haleigh Int Med, 1994; 121:641 ? AM J Med, 1998; 105(1A):48S Blood specimen (specimen) 04/15/2014 12:50 PM EDT 04/15/2014 12:57 PM EDT Narrative Resulting Agency Comment Spec In Lab Vahid Philip MD CHEMISTRY ORDERABLES Performing Organization Address City/[facility]/ZIP Co de Phone Number YOUSIF RADHABRIANROGELIO * TSH (04/15/2014 12:50 PM EDT) TSH 3.81 0.27 - 4.20 mcIU/mL YOUSIF RADHAROXANA Blood specimen (specimen) 04/15/2014 12:50 PM EDT 04/15/2014 12:57 PM EDT Narrative Resulting Agency Comment Spec In Lab Vahid Philip MD CHEMISTRY ORDERABLES Performing Organization Address [facility]/ZIP Co de Phone Number YOUSIF DORITA * (ABNORMAL) Hemoglobin A1c (04/15/2014 12:50 PM EDT) Hemoglobin A1C 8.0(H) <=5.6 % GOPI KEVIN Comment: Reference Range: 4.3 ? 5.6% 5.7 ? 6.4% - Increased Risk of Developing Diabetes [...] S67-44 Est Avg Gluc See note mg/dL [facility] Comment: Estimated Average Glucose not appropriate for [...] resources are available on the ADA website: http://Democravise.Goshi/DHMCadacalc Dago MOE, Stella J, Hernandez R, et al. ??Translating the A1C assay into estimated average glucose values. ??Diabetes Care 2008:31(8):9095-5672. Blood specimen (specimen) 04/15/2014 12:50 PM EDT 04/15/2014 12:57 PM EDT Narrative Resulting Agency Comment Spec In Lab Vahid Philip MD CHEMISTRY ORDERABLES [facility] * (ABNORMAL) Comprehensive metabolic panel (non-fasting) (04/15/2014 12:50 PM EDT) Glucose Lvl 114 60 - 199 mg/dL [facility] Comment:Diabetes: >=200 mg/d L plus symptoms BUN 13 8 - 18 mg/dL CERNER MILLENNIUM Creatinine 0.78 0.70 - 1.20 mg/dL CERNER MILLENNIUM Comment: Please note that the pediatric reference intervals supplied above were not validated at [facility]. Results from pediatric patients should be interpreted in conjunction to the patient's age, height and muscle mass. Sodium 140 135 - 145 mmol/L CERNER MILLENNIUM Potassium 4.2 3.5 - 5.0 mmol/L CERNER MILLENNIUM Comment: Please note: ??Patients with WBC >100,000 may have falsely elevated Potassium levels. ??For accurate Potassium quantification in these patients send serum separator tube (gold top) for subsequent determinations. ??Contact the Clinical Chemistry Laboratory if there are any questions. Chloride 102 98 - 107 mmol/L CERNER MILLENNIUM CO2 27 22 - 31 mmol/L CERNER MILLENNIUM Anion Gap 11 5 - 15 mmol/L CERNER MILLENNIUM Calcium 9.8 8.5 - 10.5 mg/dL CERNER MILLENNIUM Total Protein 7.5 6.4 - 8.3 gm/dL CERNER MILLENNIUM Albumin 4.3 3.2 - 5.2 gm/dL CERNER MILLENNIUM AST 29 0 - 30 unit/L CERNER MILLENNIUM ALT 48(H) 0 - 30 unit/L CERNER MILLENNIUM Alk Phos 146(H) 40 - 104 unit/L CERNER MILLENNIUM Total Bilirubin 0.9 0.2 - 1.3 mg/dL CERNER MILLENNIUM Bili, Direct 0.1 0.0 - 0.3 mg/dL CERNER MILLENNIUM Estimated GFR >60 >=60 CERNER MILLENNIUM Comment: [...] the following links into your internet browser. [email or web address] [email or web address] Blood specimen (specimen) 04/15/2014 12:50 PM EDT 04/15/2014 12:57 PM EDT Narrative Resulting Agency Comment Spec In Lab Vahid Philip MD CHEMISTRY ORDERABLES [facility] * (ABNORMAL) Hemoglobin A1c (07/01/2013 10:45 AM EST) Hemoglobin A1C 8.4(H) 4.3 - 6.1 % [facility] Comment: The [place] Diabetes Association (ADA) has stated that HbA1c values >or= 6.5% are consistent with the diagnosis of diabetes mellitus. In the absence of hyperglycemia (i.e. plasma glucose > 200 mg/dL) or classic symptoms of hyperglycemia a repeat measurement of HbA1c should be performed on a separate sample to confirm the diagnosis. The ADA also considers an HbA1c value between 5.7% and 6.4% to be consistent with an increased risk of diabetes (prediabetes). Patients with an HbA1c value in this range should be counseled about their increased risk of progressing to diabetes. Reference: Position Statement: Standards of Medical Care in Diabetes 2013. Diabetes Care 2013:36;suppl 1:S11-S66. Est Avg Gluc See note mg/dL [facility] Comment: Estimated Average Glucose not [...] resources are available on the ADA website: ??http://professional.diabetes.org/glucosecalculator.aspx Dago MOE, Stella J, Hernandez R, et al. ??Translating the A1C assay into estimated average glucose values. ??Diabetes Care 2008:31(8):8765-4283. Blood specimen (specimen) 07/01/2013 10:45 AM EST 07/01/2013 10:49 AM EST Narrative Resulting Agency Comment Spec In Lab Vahid Philip MD CHEMISTRY ORDERABLES Performing Organization Address City/State/ZIP Co [place] Phone Number [facility] documented in this encounter Visit Diagnoses Diagnosis Type II or unspecified type diabetes mellitus without mention of complication, uncontrolled- Primary documented in this encounter Care Teams Supervisor Meter Shop Relationship Specialty Start Date End Date Hannah Gagnon MD [address] [place] [address] PCP - General 08/08/11 11/07/18 documented as of this encounter
--- OUTSIDE RECORDS SUMMARY | 2024-03-17 14:29 | XMS_ITS | Encounter Summary ---
Author Organization [facility] [place] [address] Care Team Providers Care Paper Coater Name Role Phone Reshma Baig MD Primary Care Provider [phone] Encounter Details Date Type Department Care Team (Late st Contact Info) Description 04/19/2020 4:30 PM EDT Ancillary Procedure [place] [address] Social History Tobacco Use Types Packs/Day Years [...] Date/Time Associated Diagnosis Comments POCT GLUCOSE Routine 04/21/2020 5:05 PM EDT POCT GLUCOSE Routine 04/21/2020 7:27 AM EDT REQUEST FOR 2ND READ CT ABDOMEN AND PELVIS Routine 04/19/2020 4:15 PM EDT documented in this encounter Results * POCT Glucose (04/21/2020 5:05 PM EDT) POC Glucose 179 65 - 199 mg/dL [facility] Comment: Supplemental ranges: <140 mg/dL before meals <180 mg/dL all other times of the day Blood specimen (specimen) 04/21/2020 5:05 PM EDT 04/21/2020 5:[address] Zachary Molina MD POINT OF CARE TEST O [facility] [place] [address] * POCT Glucose (04/21/2020 7:27 AM EDT) POC Glucose 176 65 - 199 mg/dL [facility] Comment: Supplemental ranges: <140 mg/dL before meals <180 mg/dL all other times of the day Blood specimen (specimen) 04/21/2020 7:27 AM EDT 04/21/2020 7:[address] Zachary Molina MD POINT OF CARE TEST [facility] [place] [address] documented in this encounter Visit Diagnoses Not on filedocumented in this encounter Care Teams Paper Coater Relationship Specialty Start Date End Date Reshma Baig MD [address] [place] [address] PCP - General Family Medicine 11/08/18 06/23/21 documented as of this encounter
--- OUTSIDE RECORDS SUMMARY | 2024-03-17 14:29 | XMS_ITS | Encounter Summary ---
Author Organization [facility] Address [facility] [place] [address] Care Team Providers Care Dietary Cook Name Role Phone Reshma Baig MD Primary Care Provider [phone] Encounter Details Date Type Department Care Team (Late st Contact Info) Description 04/20/2020 [place] [address] Fermin Ramos MD [facility] [place] [address] Social History Tobacco Use Types Packs/Day Years [...] on filedocumented in this encounter Care Teams Dietary Cook Relationship Specialty Start Date End Date Reshma Baig MD [address] [place] [address] PCP - General Family Medicine 11/08/18 06/23/21 documented as of this encounter
--- OUTSIDE RECORDS SUMMARY | 2024-03-17 14:29 | XMS_ITS | Encounter Summary ---
Author Organization [facility] [place] [address] Care Team Providers Care Engine Lathe Tender Name Role Phone Hannah Gagnon MD Primary Care Provider [phone] Reason for Visit * Reason Onset Date Comments Prior Authorization 02/28/2017 Encounter Details Date Type Department Care Team ([facility] st Contact Info) Description 02/28/2017 [place] [address] Alexa Trujillo Prior Authorization Social History Tobacco Use Types Packs/Day Years Used Date Smoking Tobacco: Never Smokeless Tobacco: Never Sex and Gender Information Value Date Recorded Sex Assigned at Not on file Gender Identity Not on file Sexual Orientation Not on file documented as of this encounter Miscellaneous Notes * Telephone Encounter - Alexa Trujillo - 02/28/2017 3:30 PM EDT Medication Prior Authorization [place]IL[place] Medication name/dose/directions: TRULICITY 0.75MG - ONCE EVERY WEEK Rationale for request: TYPE II DM Health plan: [employer] ([employer]) Authorizing medical collections representative name: TODD Faxed to health plan on: 02/28/17 Health plan decision: APPROVED Quantity approved: Authorization number: [id number] Start date: 02/28/17 End date: 02/28/20 documented in this encounter Plan of Treatment Not on file documented as of this encounter Visit Diagnoses Not on filedocumented in this encounter Care Teams Engine Lathe Tender Relationship Specialty Start Date End Date Hannah Gagnon MD [address] [place] [address] PCP - General 08/08/11 11/07/18 documented as of this encounter
--- OUTSIDE RECORDS SUMMARY | 2024-03-17 14:29 | XMS_ITS | Encounter Summary ---
Author Organization [facility] [place] [address] Care Team Providers Care Supervisor Pigment Making Name Role Phone Reshma Baig MD Primary Care Provider [phone] Encounter Details Date Type Department Care Team (Late st Contact Info) Description 04/14/2020 12:05 AM EDT Ancillary Procedure [facility] [place] [address] Magdalene Lopez MD [facility] [place] [address] Social History Tobacco Use Types Packs/Day Years [...] Associated Diagnosis Comments FILM LIBRARY STORAGE ONLY DX ABDOMEN Routine 04/14/2020 12:05 AM EDT documented in this encounter Results * Film Library- Storage Only DX Abdomen (04/14/2020 12:05 AM EDT) Narrative [facility] - 04/19/2020 8:57 AM EDT This exam is auto-finalizing. It's purpose is for storage only. Magdalene Lopez MD IMG FILM LIBRARY ORD ERABLES [facility] [place] documented in this encounter Visit Diagnoses Not on filedocumented in this encounter Care Teams Supervisor Pigment Making Relationship Specialty Start Date End Date Reshma Baig MD [address] [place] [address] PCP - General Family Medicine 11/08/18 06/23/21 documented as of this encounter
--- OUTSIDE RECORDS SUMMARY | 2024-03-17 14:29 | XMS_ITS | Encounter Summary ---
Author Organization [facility] [place] [address] Care Team Providers Care Audio Visual Coordinator Name Role Phone Hannah Gagnon MD Primary Care Provider [phone] Reason for Visit * Reason Onset Date Comments Medication Refill 10/25/2017 Encounter Details Date Type Department Care Team (Late st Contact Info) Description 10/25/2017 Refill [place] [address] [facility] [place] [address] Social History Tobacco Use Types Packs/Day Years [...] on filedocumented in this encounter Care Teams Audio Visual Coordinator Relationship Specialty Start Date End Date Hannah Gagnon MD [address] [place] [address] PCP - General 08/08/11 11/07/18 documented as of this encounter
--- OUTSIDE RECORDS SUMMARY | 2024-03-17 14:29 | XMS_ITS | Encounter Summary ---
Author Organization [facility] Address [facility] [place] [address] Care Team Providers Care Student Ministries Director Name Role Phone Hannah Gagnon MD Primary Care Provider [phone] Reason for Visit * Reason Comments Medication Refill Encounter Details Date Type Department Care Team (Late st Contact Info) Description 09/13/2016 [place] [address] Alissa Malave APRN [facility] [place] [address] Social History Tobacco Use Types Packs/Day Years Used Date Smoking Tobacco: Never Smokeless Tobacco: Never Sex and Gender Information Value Date Recorded Sex Assigned at Not on file Gender Identity Not on file Sexual Orientation Not on file documented as of this encounter Miscellaneous Notes * Telephone Encounter - Reyna Lloyd RN - 09/15/2016 10:03 AM EST Patient is overdue for follow up. Message forwarded to secretaries to schedule follow up appointment. documented in this encounter Plan of Treatment Not on file documented as of this encounter Visit Diagnoses Not on filedocumented in this encounter Care Teams Student Ministries Director Relationship Specialty Start Date End Date Hannah Gagnon MD [address] [place] [address] PCP - General 08/08/11 11/07/18 documented as of this encounter
--- OUTSIDE RECORDS SUMMARY | 2024-03-17 14:29 | XMS_ITS | Encounter Summary ---
Author Organization [facility] Address [facility] [place] [address] Care Team Providers Care Wet End Supervisor Name Role Phone Hannah Gagnon MD Primary Care Provider [phone] Reason for Visit * Reason Comments Diabetes Encounter Details Date Type Department Care Team (Late st Contact Info) Description 04/15/2014 12:30 PM EDT Office [place] [address] Alissa Malave APRN [facility] [place] [address] Type II or unspecified type diabetes mellitus [...] Sign Reading Time Taken Comments Blood Pressure 145/66 04/15/2014 1:26 PM EDT Pulse 86 04/15/2014 1:26 PM EDT Temperature - - Respiratory Rate - - Oxygen Saturation - - Inhaled Oxygen Concentration - - Weight 86.2 kg (190 lb) 04/15/2014 1:26 PM EDT Height - - Body Mass Index 35.6 12/24/2012 1:12 PM EDT documented in this encounter Patient Instructions * Patient Instructions* Alissa Malave APRN - 04/15/2014 1:52 PM EDT Increased dose of lovastatin to 20 mg today to get LDL cholesterol under 100 If Glucose levels are under 90, then lower insulin doses by 4-6 units documented in this encounter Progress Notes * Alissa Malave APRN - 04/15/2014 1:59 PM EDT DATE OF VISIT: 04/15/2014 REASON FOR VISIT: Followup type 2 DM in fair control. Also, hypertension in good control, hyperlipidemia not at goal, and overweight. BRIEF HISTORY: Presents and states she feels well. SBGM: Two times a day. DIABETES REGIMEN: Humalog mix 75/25, 60 units in a.m., 35 to 40 units before evening meal. PREVENTION STRATEGIES: She does take a statin and an KOLTON inhibitor. Does have an annual dilated eye exam. Will check when her last dentist appointment was. REVIEW OF SYSTEMS: Depression and Mood: Recently enjoyed sometime at the beach with her granddaughters. Eyes: No recent vision changes. No recent headaches or chest pain or shortness of breath. No recent GI symptoms. Appetite: Good. Sleep Pattern: She works nights. Extremities: Okay. PHYSICAL EXAMINATION: Appearance: She appears in excellent health. She appears younger than her age. She is overweight. Weight today 190 pounds. She has lost 3 pounds since June. Eyes: No retinopathy with panophthalmoscope. Neck: No thyromegaly or lymphadenopathy. Heart: Regular rate and rhythm, no murmurs. Lungs: Clear to auscultation. Feet: Skin is normal. Pulses are normal. Neuro: Normal sensation to 10 g of pressure. LABORATORY DATA: Several labs were done today. Hemoglobin A1c 8.0%, previous was 8.4%. Hypoglycemia, no. IMPRESSION AND PLAN: Diabetes mellitus type 2 in good/fair overall control. Advised not to increase insulin doses at this time. Advised to continue to work on attempting another 3 to 5-pound weight loss. Blood pressure 145/66. LDL is above 100. Will increase dose of lovastatin to 20 mg daily. Requested two prescriptions to be sent to her pharmacy, which were done. Gave the patient copy of her lab results and reviewed them with her. ALT is mildly elevated most likely related to one glass of wine last night. Return to office, the patient would like to prefer until after the winter months. In October, will check hemoglobin A1c and microalbumin. This was a 30-minute office visit with 29-minute spent counseling [id number] with the patient in the management of glucose levels, reviewing prevention and treatment of hypoglycemia, reviewing cholesterol targets, blood pressure targets, advised when she has a glass of wine to also have a small snack with that to avoid Hypoglycemia. Recent Results (from the past 72 hour(s)) COMPREHENSIVE METABOLIC PANEL (NON-FASTING) Component Value Range Glucose Lvl 114 60 - 199 mg/dL BUN 13 8 - 18 mg/dL Creatinine 0.78 0.70 - 1.20 mg/dL Sodium 140 135 - 145 mmol/L Potassium 4.2 3.5 - 5.0 mmol/L Chloride 102 98 - 107 mmol/L CO2 27 22 - 31 mmol/L Anion Gap 11 5 - 15 mmol/L Calcium 9.8 8.5 - 10.5 mg/dL Total Protein 7.5 6.4 - 8.3 gm/dL Albumin 4.3 3.2 - 5.2 gm/dL AST 29 0 - 30 unit/L ALT 48 (*) 0 - 30 unit/L Alk Phos 146 (*) 40 - 104 unit/L Total Bilirubin 0.9 0.2 - 1.3 mg/dL Bili, Direct 0.1 0.0 - 0.3 mg/dL Estimated GFR >60 >=60 HEMOGLOBIN A1C Component Value Range Hemoglobin A1C 8.0 (*) <=5.6 % Est Avg Gluc See note TSH Component Value Range TSH 3.81 0.27 - 4.20 mcIU/mL HDL/CHOL PROFILE Component Value Range Chol, Total 225 (*) <=199 mg/dL HDL 44 >=40 mg/dL Chol/HDL Ratio 5.1 LDL CHOLESTEROL, DIRECT Component Value Range LDL Chol Direct 158 (*) <=99 mg/dL MICROALBUMIN, URINE, RANDOM Component Value Range U Creatinine 81 U Ran Malb Conc 4.9 U Ran Malb Calc 6 documented in this encounter Plan of Treatment Not on file documented as of this encounter Procedures Procedure Name Priority Date/Time Associated Diagnosis Comments U ALBUMIN/CRE RATIO Routine 04/15/2014 2 :00 PM EDT Type II or unspecified type diabetes mellitus without mention of complication, uncontrolled TSH Routine 04/15/2014 12:50 PM EDT Type II or unspecified type diabetes mellitus without mention of complication, uncontrolled LDL CHOLESTEROL, DIRECT Routine 04/15/2014 12:50 PM EDT Type II or unspecified type diabetes mellitus without mention of complication, uncontrolled HDL/CHOL PROFILE Routine 04/15/2014 12:5 0 PM EDT Type II or unspecified type diabetes mellitus without mention of complication, uncontrolled HEMOGLOBIN A1C Routine 04/15/2014 12:50 PM EDT Type II or unspecified type diabetes mellitus without mention of complication, uncontrolled COMPREHENSIVE METABOLIC PANEL (NON-FASTING) Routine 04/15/2014 12:50 PM EDT Type II or unspecified type diabetes mellitus without mention of complication, uncontrolled documented in this encounter Results * Microalbumin, urine, random (11/16/2014 10:52 AM EDT) U Creatinine 147 mg/dL [facility] U Albumin Conc, Random 16.3 mg/L CERNER MILLENNIUM Alb/Cr Ratio, Random 11 mcg/mg Cr CERNER MILLENNIUM Comment: Reference Range* Random collection (mcg/mg creatinine) Normal ?<30 Microalbuminuria ?? 30 - 300 Clinical Albuminuria ?? >300 *[place] Diabetes Association. Diabetic Nephropathy. Diabetes Care 1997;(Suppl 1):S24-S27 Exercise within 24 hour, infection, fever, CHF, marked hyperglycemia, and marked hypertension may elevate urinary albumin excretion over baseline values. Urine specimen (specimen) 11/16/2014 10:52 AM EDT 11/16/2014 11:12 AM EDT Narrative Resulting Agency Comment Spec In Lab Vahid Philip MD URINE ORDERABLES [facility] * (ABNORMAL) Hemoglobin A1c (11/16/2014 10:52 AM EDT) Hemoglobin A1C 9.0(H) 4.3 - 5.6 % [facility] Comment: Reference Range: 4.3 - [...] S67-74 Est Avg Gluc See note mg/dL [facility] Comment: Estimated Average Glucose not appropriate [...] resources are available on the ADA website: [email or web address] Dago MOE, Stella J, Hernandez R, et al. ??Translating the A1C assay into estimated average glucose values. ??Diabetes Care 2008:31(8):7601-0705. Blood specimen (specimen) 11/16/2014 10:52 AM EDT 11/16/2014 11:11 AM EDT Narrative Resulting Agency Comment Spec In Lab Vahid Philip MD CHEMISTRY ORDERABLES Performing Organization Address [facility] de Phone Number [facility] * Microalbumin, urine, random (04/15/2014 2:00 PM EDT) U Creatinine 81 mg/dL [facility] U Albumin Conc, Random 4.9 mg/L [facility] Alb/Cr Ratio, Random 6 mcg/mg Cr [facility] Comment: Reference Range* Random collection (mcg/mg creatinine) Normal ?<30 Microalbuminuria ?? 30 - 300 Clinical Albuminuria ?? >300 *[place] Diabetes Association. Diabetic Nephropathy. Diabetes Care 1997;(Suppl 1):S24-S27 Exercise within 24 hour, infection, fever, CHF, marked hyperglycemia, and marked hypertension may elevate urinary albumin excretion over baseline values. Urine specimen (specimen) 04/15/2014 2:00 PM EDT 04/15/2014 2:25 PM EDT Narrative Resulting Agency Comment Spec In Lab Vahid Philip MD URINE ORDERABLES Performing Organization Address [facility] de Phone Number [facility] * (ABNORMAL) LDL Cholesterol, Direct (04/15/2014 12:50 PM EDT) LDL Chol Direct 158(H) <=99 mg/dL [facility] MILLENNIUM Comment: The National Cholesterol Education Program (NCEP) has set the following guidelines for LDL Cholesterol: Reference range: ?? Optimal: ?<100 mg/dL ?? Near Optimal/Above Optimal: ?? 100-129 mg/dL ?? Borderline high: ?130-159 mg/dL ?? High: ? 160-189 mg/dL ?? Very high: ?>yb=289 mg/dL RAMONA 2001: 285(19):2966-0911 Blood specimen (specimen) 04/15/2014 12:50 PM EDT 04/15/2014 12:57 PM EDT Narrative Resulting Agency Comment Spec In Lab Vahid Philip MD CHEMISTRY ORDERABLES Performing Organization Address [facility] de Phone Number [facility] * (ABNORMAL) HDL/Cholesterol Profile (04/15/2014 12:50 PM EDT) Chol, Total 225(H) <=199 mg/dL [facility] Comment: Recommendations of the NCEP Adult Treatment Panel for the following risk cutoff thresholds for the [place] population: Desirable: <200 mg/dL Borderline High: 200-239 mg/dL High: > or = 240 mg/dL HDL 44 >=40 mg/dL [facility] Comment: Reference range: ??Low HDL: ?? < 40 mg/dL ??Normal: ?40-60 mg/dL ??Desirable: > 60 mg/dL RAMONA 2001; 285(19):4883-3080 Chol/HDL Ratio 5.1 ratio GOPI Melissa RADHABRIANIUM Comment: A Cholesterol to HDL ratio below 4:1 is desirable. ??Studies suggest that increased CAD risk occurs at ratios above 5 for females and above 6 for men. ? [place] Heart Association ??(http://www.americanheart.org) ? Haleigh Int Med, 1994; 121:641 ? AM J Med, 1998; 105(1A):48S Blood specimen (specimen) 04/15/2014 12:50 PM EDT 04/15/2014 12:57 PM EDT Narrative Resulting Agency Comment Spec In Lab Vahid Philip MD CHEMISTRY ORDERABLES Performing Organization Address [facility] de Phone Number [facility] * TSH (04/15/2014 12:50 PM EDT) TSH 3.81 0.27 - 4.20 mcIU/mL [facility] Blood specimen (specimen) 04/15/2014 12:50 PM EDT 04/15/2014 12:57 PM EDT Narrative Resulting Agency Comment Spec In Lab Vahid Philip MD CHEMISTRY ORDERABLES [facility] * (ABNORMAL) Hemoglobin A1c (04/15/2014 12:50 PM EDT) Hemoglobin A1C 8.0(H) <=5.6 % GOPI Belén KEVIN Comment: Reference Range: 4.3 ? 5.6% [...] Mellitus, Diabetes Care 2013; 36: Suppl. 1, S67-94 Est Avg Gluc See note mg/dL [facility] Comment: Estimated Average Glucose not appropriate for [...] resources are available on the ADA website: [email or web address]://[employer]com/[facility] BUFFALOadacalc Dago MOE, Stella J, Hernandez R, et al. ??Translating the A1C assay into estimated average glucose values. ??Diabetes Care 2008:31(8):9484-5993. Blood specimen (specimen) 04/15/2014 12:50 PM EDT 04/15/2014 12:57 PM EDT Narrative Resulting Agency Comment Spec In Lab Vahid Philip MD CHEMISTRY ORDERABLES [facility]ERNER MILLENNIUM * (ABNORMAL) Comprehensive metabolic panel (non-fasting) (04/15/2014 12:50 PM EDT) Glucose Lvl 114 60 - 199 mg/dL [facility]ERNER MILLENNIUM Comment:Diabetes: >=200 mg/d L plus symptoms BUN 13 8 - 18 mg/dL CERNER MILLENNIUM Creatinine 0.78 0.70 - 1.20 mg/dL CERNER MILLENNIUM Comment: Please note that the pediatric reference intervals supplied above were not validated at [facility]. Results from pediatric patients should be interpreted [...] the following links into your internet browser. [email or web address] [email or web address] Blood specimen (specimen) 04/15/2014 12:50 PM EDT 04/15/2014 12:57 PM EDT Narrative Resulting Agency Comment Spec In Lab Vahid Philip MD CHEMISTRY ORDERABLES YOUSIF KEVIN documented in this encounter Visit Diagnoses Diagnosis Type II or unspecified type diabetes mellitus without mention of complication, uncontrolled- Primary documented in this encounter Care Teams Wet End Supervisor Relationship Specialty Start Date End Date Hannah Gagnon MD [address] [place] [address] PCP - General 08/08/11 11/07/18 documented as of this encounter
--- OUTSIDE RECORDS SUMMARY | 2024-03-17 14:29 | XMS_ITS | Encounter Summary ---
Author Organization [facility] [place] [address] Care Team Providers Care Electric Meter Installer Name Role Phone Hannah Gagnon MD Primary Care Provider [phone] Reason for Visit * Reason Comments Medication Refill Encounter Details Date Type Department Care Team (Late st Contact Info) Description 03/30/2014 Refill [place] [address] Alissa Malave APRN [facility] [place] [address] Social History Tobacco Use Types Packs/Day Years Used Date Smoking Tobacco: Never Sex and Gender Information Value Date Recorded Sex Assigned at Not on file Gender Identity Not on file Sexual Orientation Not on file documented as of this encounter Plan of Treatment Not on file documented as of this encounter Visit Diagnoses Not on filedocumented in this encounter Care Teams Electric Meter Installer Relationship Specialty Start Date End Date Hannah Gagnon MD [address] [place] [address] PCP - General 08/08/11 11/07/18 documented as of this encounter
--- OUTSIDE RECORDS SUMMARY | 2024-03-17 14:29 | XMS_ITS | Encounter Summary ---
Author Organization [facility] Address [facility] [place] [address] Care Team Providers Care Trademark Attorney Name Role Phone Hannah Gagnon MD Primary Care Provider [phone] Reason for Visit * Reason Comments Diabetes Encounter Details Date Type Department Care Team (Late st Contact Info) Description 02/28/2017 11:00 AM EDT Office [place] [address] Alissa Malave [employer] [facility] DR ENDOCRIN[place] [address] Uncontrolled type 2 diabetes mellitus without complication, [...] Sign Reading Time Taken Comments Blood Pressure 169/78 02/28/2017 10:50 AM EDT Pulse 77 02/28/2017 10:50 AM EDT Temperature - - Respiratory Rate - - Oxygen Saturation - - Inhaled Oxygen Concentration - - Weight 88.8 kg (195 lb 11.2 oz) 017 10:50 AM EDT Height 157.5 cm (5' 2) 02/28/2017 10:5 0 AM EDT Body Mass Index 35.79 02/28/2017 10:50 AM EDT documented in this encounter Patient Instructions * Patient Instructions* Alissa Malave APRN - 02/28/2017 11:00 AM EDT Given info for weekly trulicity. Call for coupon 1st If insurance only covers victoza, daily, start Lowest dose .6mg for week 1 then 1.2 mg for week 2, then 1.8mg daily Stopped lisinopril (cough) and changed to losartan 50mg daily documented in this encounter Progress Notes * Alissa Malave APRN - 02/28/2017 11:00 AM EDT REASON FOR VISIT: Follow up type 2 DM, in very poor control. Also, hypertension, not at goal, hyperlipidemia, at goal, and overweight. BRIEF HISTORY: Presents and states she did not start Victoza because she hates injections and did not want to add another daily injection. DIABETES REGIMEN: Lantus 27 units twice a day, Humalog up to 20 units before meals 3 times a day. SBGM 2 times a day, but agrees to check 3 times a day consistently. TWENTY-FOUR HOUR MEAL PLAN: She states she is definitely trying not to overeat, and she does eat vegetables. PHYSICAL ACTIVITY: Enjoys swimming, but has not been as consistent with fitting that in recently. Son is moving to [place]. REVIEW OF SYSTEMS: Depression and mood: Overall, is doing well. Eyes: No recent vision changes. No recent headaches or chest pain or shortness of breath. No recent GI symptoms. Appetite is good. Sleep pattern: Varies. Extremities: Has arthritis and joint pains. PHYSICAL EXAM: Appearance: She appears in very good health. She is overweight, 195 pounds. She has gained 8 pounds since previous office visit. Blood pressure 169/78. Eyes: No retinopathy with green light exam. Neck: No thyromegaly or lymphadenopathy. Heart: Regular rate and rhythm. Lungs are clear to auscultation. Feet: Skin is normal. Pulses are normal. Neuro: Normal sensation to 10 Gs of pressure. Hemoglobin A1c 10.0%. Previous was 8.8%. IMPRESSION AND PLAN: DM type 2. Reviewed importance of lowering hemoglobin A1c closer to 7.5% without frequent low glucose levels. Discussed adding more insulin, which makes losing weight more difficult. She agreed to try to use a GLP-1 medication. She would prefer to use weekly Trulicity. Taught Trulicity pen. Will start 0.75 mg weekly. If her insurance does not prefer that one, she agrees reluctantly to use Victoza daily. Reminded to start at the lowest dose, 0.6 mg daily for week 1, then 1.2 mg daily for week 2, then 1.8 mg daily. Encouraged to bring meter to appointments, and she agrees to check glucose levels more consistently, 3 times a day before meals, to see if they are getting closer to under 130. This was a 35 minute office visit with 26 minutes spent counseling [id number] with patient in the management of glucose levels, reviewing target glucose levels. Reviewed her lab results, gave her a copy. LDL is at goal. She has an appointment scheduled with PCP. Return to endocrinology in June 2017. Will check hemoglobin A1c and other labs that she is due for. Recent Results (from the past 72 hour(s)) Hemoglobin A1c Result Value Ref Range Hemoglobin A1C 10.0 (H) 4.3 - 5.6 % Est Avg Gluc See note mg/dL LDL Cholesterol, Direct Result Value Ref Range LDL Chol Direct 73 <=190 mg/dL U Albumin/Cre Ratio Result Value Ref Range Alb/Cr Ratio, Random 10 0 - 29 mcg/mg Cr U Albumin Conc, Random 7.3 mg/L U Creatinine 76 mg/dL documented in this encounter Plan of Treatment Not on file documented as of this encounter Visit Diagnoses Diagnosis Uncontrolled type 2 diabetes mellitus without complication, with long-term current use of insulin documented in this encounter Care Teams Trademark Attorney Relationship Specialty Start Date End Date Hananh Gagnon MD [address] [place] [address] PCP - General 08/08/11 11/07/18 documented as of this encounter
--- OUTSIDE RECORDS SUMMARY | 2024-03-17 14:29 | XMS_ITS | Encounter Summary ---
Author Organization [facility] Address [facility] [place] [address] Care Team Providers Care Internist Name Role Phone Reshma Baig MD Primary Care Provider [phone] Reason for Visit * Reason Comments Follow-up Skin Check * Consultation (Routine) - Specialty Diagnoses / Procedures Referred By Malini carlson Referred To Contact Dermatology Diagnoses Rash and other nonspecific skin eruption rash Procedures Consult Reshma Baig MD [address] [place] [address] Jalil Gómez MD [address] [place] [address] [place] [address] Referral ID Status Reason Start Date Expiration Date V isits Requested Visits Authorized [id number] 11/13/2018 11/13/2019 1 1 Encounter Details Date Type Department Care Team (Late st Contact Info) Description 12/30/2018 10:30 AM EDT Office Visit Dermatology at [address] [id number] Jalil Gómez MD [address] [place] [address] [place] [address] Rosacea; Pruritus Social History Tobacco Use Types Packs/Day Years Used Date Smoking Tobacco: Never Smokeless Tobacco: Never Sex and Gender Information Value Date Recorded Sex Assigned at Not on file Gender Identity Not on file Sexual Orientation Not on file documented as of this encounter Progress Notes * Jalil Gómez MD - 12/30/2018 10:30 AM EDT Problem: Pruritus of head and neck Shannan follows up after last being seen in August 2011 at which time I removed an irritated seborrheic keratosis from the right cheek. She is concerned about itching that is developed over the lastyear and really bothers her scalp in particular at night. 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 She lives at home by herself and is not is not aware of any of her friends have an itching cheese issues. Treatment for scalp is been with T-Gel shampoo for the last year which she uses on the every other day basis when she showers/shampoos. It has not helped. Physical examination reveals a pleasant 78-year-old woman who has excoriated patches and papules within her temporal occipital and in some cases parietal scalp. She has no erythema or scaling is no dandruff. She has some mild rosacea of her face. Erythematous papules are present on the cheeks and medially and laterally. She also has some actinic keratoses over the mid central face. Assessment plan: Acne excoriated scalp/rosacea form folliculitis 1. Begin trial of fluocinolone 0.01% solution applying on a twice daily basis to itchy areas and scalp dispense 60 mL with 3 refills. 2. Try not to dig when she scratches but rub when she has to scratch her scalp 3. If no improvement with this could consider addition of low-dose minocycline. Facial rosacea, inflammatory papular 1. Attempt topical therapy with metronidazole 0.75% cream applying on a twice daily basis to face after washing. Dispense 45 g with 3 refills. 2. We will call these prescriptions in to her right aid in [place]. CC: Reshma Baig MD documented in this encounter Plan of Treatment Not on file documented as of this encounter Visit Diagnoses Diagnosis Rosacea Pruritus Unspecified pruritic disorder documented in this encounter Care Teams Internist Relationship Specialty Start Date End Date Reshma Baig MD [address] [place] [address] PCP - General Family Medicine 11/08/18 06/23/21 documented as of this encounter
--- OUTSIDE RECORDS SUMMARY | 2024-03-17 14:29 | XMS_ITS | Encounter Summary ---
Author Organization [facility] [place] [address] Care Team Providers Care Marketing Researcher Name Role Phone Hannah Gagnon MD Primary Care Provider [phone] Reason for Referral * Consultation (Routine) - Closed by system - Referral Specialty Diagnoses / Procedures Referred By Malini carlson Referred To Contact Podiatry Diagnoses Pain in toe of left foot [facility] Endocrinology [address] [place] [phone] Emre Barry DPM [address] [place] [phone] Referral ID Status Reason Start Date Expiration Date Visits Requested Visits Authorized [id number] Closed by system - Referral Consult, Test & Treat 09/24/2013 03/23/2014 99 [phone] Reason for Visit * Reason Onset Date Comments Toe Pain 09/24/2013 Encounter Details Date Type Department Care Team ([facility] Contact Info) Description 09/24/2013 [place] [address] Eliza Mc LPN Toe Pain Social History Tobacco Use Types Packs/Day Years Used Date Smoking Tobacco: Never Sex and Gender Information Value Date Recorded Sex Assigned at Not on file Gender Identity Not on file Sexual Orientation Not on file documented as of this encounter Miscellaneous Notes * Telephone Encounter - Eliza Mc LPN - 09/24/2013 8:32 AM EST Shannan calls nurse line with c/o L fifth toe pain. States she broke her toe last May, it did heal but there has been a red tender spot on it that hasn't gone away. States it is very painful and got worse with new shoes she bought. She went to the [facility] where they x-rayed her foot, took blood, and now want to do an U/S on it. States she feels that is not the right direction. Discussed this with Alissa Malave NP who agrees we could refer her to a oracle identity management consultant to check out her foot, and also stop wearing the new shoes. Faxed referral, demographics, last office note, and this note to Emre Barry, a oracle identity management consultant in [facility]. Patient notified. documented in this encounter Plan of Treatment Scheduled Referrals Name Type Priority Associated Diagnoses Orde r Schedule Referral to Podiatry Outpatient Referral Routine Pain in toe of left foot Ordered: 09/24/2013 documented as of this encounter Visit Diagnoses Diagnosis Pain in toe of left foot- Primary Pain in limb documented in this encounter Care Teams Marketing Researcher Relationship Specialty Start Date End Date Hannah Gagnon MD [address] [place] [address] PCP - General 08/08/11 11/07/18 documented as of this encounter
--- OUTSIDE RECORDS SUMMARY | 2024-03-17 14:29 | XMS_ITS | Encounter Summary ---
Author Organization [facility] Address [facility] [place] [address] Care Team Providers Care Client Evaluator Name Role Phone Hannah Gagnon MD Primary Care Provider [phone] Reason for Visit * Reason Comments Diabetes Encounter Details Date Type Department Care Team (Late st Contact Info) Description 06/22/2015 3:00 PM EDT Office [place] [address] Alissa Malave APRN [facility] [address] [place] [address] Diabetes mellitus type 2, uncontrolled; Hyperlipidemia Social History Tobacco Use Types Packs/Day Years Used Date Smoking Tobacco: Never Smokeless Tobacco: Never Sex and Gender Information Value Date Recorded Sex Assigned at Not on file Gender Identity Not on file Sexual Orientation Not on file documented as of this encounter Last Filed Vital Signs Vital Sign Reading Time Taken Comments Blood Pressure 140/77 06/22/2015 3:47 PM EDT Pulse 86 06/22/2015 3:47 PM EDT Temperature - - Respiratory Rate - - Oxygen Saturation - - Inhaled Oxygen Concentration - - Weight 84.6 kg (186 lb 9.6 oz) 06/22/2015 3:47 P M EDT Height 157.5 cm (5' 2) 06/22/2015 3:47 PM EDT Body Mass Index 34.13 06/22/2015 3:47 PM EDT documented in this encounter Patient Instructions * Patient Instructions* Alissa Malaev APRN - 06/22/2015 4:06 PM EDT Stop mix inuslin Start basal insulin lantus 50 units in AM Increase dose weekly by 4 units until fasting glucose in AM is under 130 humalog before meals Target glucose between 90-130 before meals 15 units before a small meal 20 units before a medium meal 25-30 units for a high carbohydrate meal crestor 10mg daily to get LDL cholesterol closer to 100 documented in this encounter Progress Notes * Alissa Malave APRN - 06/22/2015 5:57 PM EDT DATE OF VISIT: 06/22/2015 REASON FOR VISIT: Follow up type 2 DM, in continued poor control. Also, hypertension, in good control; hyperlipidemia, not at goal; and overweight. BRIEF HISTORY: Presents and states glucose levels are always high recently. DIABETES REGIMEN: Humalog Mix QuickPen 75/25, 60 units a.m. and p.m., was not able to start the canagliflozin, but states her insurance did approve it, but by then it was time to come back for a followup visit. 24-HOUR MEAL PLAN: Varies depending if she works the night before. 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 Breakfast is either oatmeal or an Sami Muffin. Lunch is a sandwich. Evening meal varies, usually protein and vegetable. She has been eating more salads. PHYSICAL ACTIVITY: She swims two times a week and she walks. She works nights. 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 REVIEW OF SYSTEMS: Depression and Mood: Overall is doing okay, frustrated with glucose levels. Eyes: No recent vision changes. No recent headaches, chest pain, or shortness of breath. No recent GI symptoms. Sleep Pattern: Varies, depends whether she is working that night or not. Extremities: Has some joint pains. PHYSICAL EXAMINATION: Appearance: She appears in excellent health. She is overweight, 186 pounds. Blood pressure 140/77. She appears younger than her age. Eyes: No retinopathy with green light exam. Neck: No thyromegaly or lymphadenopathy. Heart: Regular rate and rhythm. No murmurs. Lungs are clear to auscultation. Feet: Skin is normal. Pulses are normal. Neuro: Normal sensation to 10 g of pressure. PREVENTION STRATEGIES: Does not take a statin. Had a side effect. Hemoglobin A1c 10%, previous was 9%. IMPRESSION AND PLAN: Diabetes mellitus type 2, in continued poor control. Will stop mix insulin and use basal bolus regimen. Start Lantus 50 units in a.m., increase by four units weekly until fasting glucose in a.m. is under 130. NovoLog before meals three times a day. Advised 10 units for a small meal, 15 units for a medium meal, 24 to 28 units for a larger meal. Advised appointment with POOL NAM at follow up to review NovoLog doses. Reviewed prevention and treatment of hypoglycemia. Will consider changing to Toujeo at next office visit and discontinuing the Lantus. This was a 39-minute office visit with 38 minutes spent counseling [id number] with the patient in the management of glucose levels, stopping mix insulin twice a day and changing to regimen of basal bolus. Recommended flu vaccine and Prevnar 13 vaccine, but she declines vaccines. In September, will check hemoglobin A1c and VLDL. She did agree to start Crestor 10 mg daily to get LDL lower. Recent Results (from the past 72 hour(s)) Creatinine Result Value Ref Range Creatinine 0.74 0.70 - 1.20 mg/dL Estimated GFR >60 >=60 Hemoglobin A1c Result Value Ref Range Hemoglobin A1C 10.2 (H) 4.3 - 5.6 % Est Avg Gluc See note mg/dL LDL Cholesterol, Direct Result Value Ref Range LDL Chol Direct 174 (H) <=99 mg/dL documented in this encounter Plan of Treatment Not on file documented as of this encounter Results * (ABNORMAL) Hemoglobin A1c (10/03/2016 10:43 AM EST) Hemoglobin A1C 8.8(H) 4.3 - 5.6 % [facility] Comment: Reference Range: 4.3 [...] S67-74 Est Avg Gluc See note mg/dL [facility] Comment: Estimated Average Glucose [...] resources are available on the ADA website: http://[employer] [place].com/DHMCadacalc Dago MOE, Stella J, Hernandez R, et al. ??Translating the A1C assay into estimated average glucose values. ??Diabetes Care 2008:31(8):3788-7648. Blood specimen (specimen) 10/03/2016 10:43 AM EST 10/03/2016 10:55 AM EST Narrative Resulting Agency Comment Spec In Lab Vahid Philip MD CHEMISTRY ORDERABLES [facility] [place] [address] documented in this encounter Visit Diagnoses Diagnosis Diabetes mellitus type 2, uncontrolled Type II or unspecified type diabetes mellitus without mention of complication, uncontrolled Hyperlipidemia Other and unspecified hyperlipidemia documented in this encounter Care Teams Client Evaluator Relationship Specialty Start Date End Date Hannah Gagnon MD [address] [place] [address] PCP - General 08/08/11 11/07/18 documented as of this encounter
--- OUTSIDE RECORDS SUMMARY | 2024-03-17 14:29 | XMS_ITS | Encounter Summary ---
Author Organization [facility] Address [facility] [place] [address] Care Team Providers Care Product Steward Name Role Phone Hannah Gagnon MD Primary Care Provider [phone] Reason for Visit * Reason Comments Diabetes Encounter Details Date Type Department Care Team (Late st Contact Info) Description 10/03/2016 11:30 AM EST Office [place] [address] Alissa Malave APRN [facility] [place] [address] Uncontrolled type 2 diabetes mellitus without complication, [...] Sign Reading Time Taken Comments Blood Pressure 157/81 10/03/2016 11:25 AM EST Pulse 81 10/03/2016 11:25 AM EST Temperature - - Respiratory Rate - - Oxygen Saturation - - Inhaled Oxygen Concentration - - Weight 85 kg (187 lb 4.8 oz) 10/03/2016 11:25 AM EST Height 157.5 cm (5' 2) 10/03/2016 11:25 AM EST Body Mass Index 34.26 10/03/2016 11:25 AM EST documented in this encounter Patient Instructions * Patient Instructions* Alissa Malave APRN - 10/03/2016 11:30 AM EST Vit D 1,000 iu's daily Will add victoza, daily. Start .6mg for week 1, then 1 mg for week 2, then 1.8mg daily May need to increase lantus doses to 27 units AM and PM to get fasting glucose under 140 documented in this encounter Progress Notes * Alissa Malave APRN - 10/03/2016 11:30 AM EST REASON FOR VISIT: Followup type 2 DM in continued poor but slowly improving control. Also, hypertension, close to goal; hyperlipidemia, not at goal; and overweight. BRIEF HISTORY: Presents and discusses how hectic her life has been. 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 DIABETES REGIMEN: Lantus 25 units twice a day. Humalog up to 15 units 3 times a day before meals. [id number]-[id number]-[id number] MEAL PLAN: Varies. 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 Breakfast is usually oatmeal or an Macedonian muffin. Lunch is sometimes a sandwich. Evening meal: Tries to have salads, a protein, and a vegetable. PHYSICAL ACTIVITY: Very busy with moving, and she continues to swim 2 times a week. REVIEW OF SYSTEMS: Depression and mood. Overall is doing okay. Eyes: No recent vision changes. No recent headaches, chest pain, or shortness of breath. No recent GI symptoms. Appetite is good. Sleep pattern varies quite a bit. States she has definitely been more tired recently. Extremities: Has some joint pains. PHYSICAL EXAM: Appearance: She appears in excellent health. She appears younger than her age. She is overweight, 187 pounds, the same as it has been. Blood pressure 157/81. Eyes: No retinopathy with green light exam. Neck: No thyromegaly or lymphadenopathy. Heart: Regular rate and rhythm. Lungs are clear to auscultation. Feet: Skin is normal. Pulses are normal. Neuro: Normal sensation to 10 g of pressure. Hemoglobin A1c 8.8%. Previous was 10.2%. IMPRESSION AND PLAN: DM type 2. Reviewed glucose results from memory. She is only checking glucose levels once a day. Will increase the Lantus dose to 27 units twice a day. Will add Victoza. Start 0.6 mg daily for week 1, then 1.2 mg daily for week 2, then 1.8 mg daily. Reviewed target glucose levels of at least under 140 before meals as much as possible. She requests several refills, which will be done. Return to office in February. Will check hemoglobin A1c, DLDL, microalbumin. She agrees to check glucose levels 2-3 times a day, before mealtimes, to see if Humalog doses need adjusting. Encouraged to bring meter to all appointments. This was a 34-minute office visit with 33 minutes spent counseling face to face with patient in the management of glucose levels; reviewing target glucose levels of under 140 before meals; adding GLP1 medication, which may help with being able to lower insulin doses; trying to get hemoglobin A1c closer to 7.5% without weight Gain. Recent Results (from the past 72 hour(s)) Hemoglobin A1c Result Value Ref Range Hemoglobin A1C 8.8 (H) 4.3 - 5.6 % Est Avg Gluc See note mg/dL documented in this encounter Plan of Treatment Not on file documented as of this encounter Results * U Albumin/Cre Ratio (02/28/2017 10:33 AM EDT) Alb/Cr Ratio, Random 10 0 - 29 mcg/mg Cr [facility] Comment: Reference Ranges: <30 mcg/mg: [...] 362 U Albumin Conc, Random 7.3 mg/L [facility] U Creatinine 76 mg/dL [facility] Urine specimen (specimen) 02/28/2017 10:33 AM EDT 02/28/2017 10:54 AM EDT Narrative Resulting Agency Comment Spec In Lab Vahid Philip MD URINE ORDERABLES Performing Organization Address City/[facility]/ZIP Co de Phone Number [facility] [place] [address] * LDL Cholesterol, Direct (02/28/2017 10:18 AM EDT) LDL Chol Direct 73 <=190 mg/dL [facility] Blood specimen (specimen) 02/28/2017 10:18 AM EDT 02/28/2017 10:25 AM EDT Narrative Resulting Agency Comment Spec In Lab Vahid Philip MD CHEMISTRY ORDERABLES Performing Organization Address [facility] Co de Phone Number [facility] [place] [address] * (ABNORMAL) Hemoglobin A1c (02/28/2017 10:18 AM EDT) Hemoglobin A1C 10.0(H) 4.3 - 5.6 % [facility] Comment: Reference Range: 4.3 - [...] S67-74 Est Avg Gluc See note mg/dL [facility] Comment: Estimated Average Glucose not [...] into estimated average glucose values. ??Diabetes Care 2008:31(8):3837-3929. Blood specimen (specimen) 02/28/2017 10:18 AM EDT 02/28/2017 10:25 AM EDT Narrative Resulting Agency Comment Spec In Lab Vahid Philip MD CHEMISTRY ORDERABLES [facility] [place] [address] documented in this encounter Visit Diagnoses Diagnosis Uncontrolled type 2 diabetes mellitus without complication, with long-term current use of insulin documented in this encounter Care Teams Product Steward Relationship Specialty Start Date End Date Hannah Gagnon MD [address] [place] [address] PCP - General 08/08/11 11/07/18 documented as of this encounter
--- OUTSIDE RECORDS SUMMARY | 2024-03-17 14:29 | XMS_ITS | Encounter Summary ---
Author Organization [facility] Address [facility] [place] [address] Care Team Providers Care Law Professor Name Role Phone Reshma Baig MD Primary Care Provider [phone] Encounter Details Date Type Department Care Team (Late st Contact Info) Description 02/10/2019 Refill Dermatology at [address] [place] [address] Meera Castro, PRODUCT DESIGN MANAGER Social History Tobacco Use Types Packs/Day Years [...] on filedocumented in this encounter Care Teams Law Professor Relationship Specialty Start Date End Date Reshma Baig MD [address] [place] [address] PCP - General Family Medicine 11/08/18 06/23/21 documented as of this encounter
--- OUTSIDE RECORDS SUMMARY | 2024-03-17 14:29 | XMS_ITS | Encounter Summary ---
[place] [address] Care Team Providers Care Hearing Care Professional Name Role Phone Hannah Gagnon MD Primary Care Provider [phone] Encounter Details Date Type Department Care Team (Late st Contact Info) Description 12/02/2013 Refill [place] [address] Roxy Herring RN Social History Tobacco Use Types Packs/Day Years Used Date Smoking Tobacco: Never Sex and Gender Information Value Date Recorded Sex Assigned at Not on file Gender Identity Not on file Sexual Orientation Not on file documented as of this encounter Miscellaneous Notes * Telephone Encounter - Roxy Herring RN - 12/02/2013 9:32 AM EDT Shannan calls stating her insurance will no longer cover free style test strips and that her glucometer broke on Sunday. She is in need of a new prescription, she is currently not able to test. documented in this encounter Plan of Treatment Not on file documented as of this encounter Visit Diagnoses Not on filedocumented in this encounter Care Teams Hearing Care Professional Relationship Specialty Start Date End Date Hannah Gagnon MD [address] [place] [address] PCP - General 08/08/11 11/07/18 documented as of this encounter
--- OUTSIDE RECORDS SUMMARY | 2024-03-17 14:29 | XMS_ITS | Encounter Summary ---
Author Organization [facility] Address [facility] [place] [address] Care Team Providers Care Hotel Sales Manager Name Role Phone Reshma Baig MD Primary Care Provider [phone] Reason for Visit * Reason Comments Follow-up Skin Check Encounter Details Date Type Department Care Team (Late st Contact Info) Description 02/10/2019 9:45 AM EDT Office Visit Dermatology at [address] [phone] Jalil Gómez MD [address] [place] [address] D[place] [place], [place] [id number] Rosacea; Pruritus Social History Tobacco Use Types Packs/Day Years Used Date Smoking Tobacco: Never Smokeless Tobacco: Never Sex and Gender Information Value Date Recorded Sex Assigned at Not on file Gender Identity Not on file Sexual Orientation Not on file documented as of this encounter Progress Notes * Jalil Gómez MD - 02/10/2019 9:45 AM EDT Problem: 1. 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 She still itching digging and scratching at these pruritic burning areas: Particularly in the scalp. Physical examination confirms ongoing mild inflammatory rosacea particularly of her left cheek and hindu area, and excoriated papules within the peripheral parietal scalp and temporal scalp. There has not been a significant improvement since her last visit. Assessment and plan: Acne excoriated of scalp / rosacea- form folliculitis 1. Begin minocycline 100 mg 1 p.o.. just before bedtime for a week, then advance 1 p.o. twice daily. Will dispense #60 with 1 refill, callings into her right aid in [place] 2. Patient states that she works at night and sleeps during the day Facial rosacea, inflammatory papular type 1. Begin treatment as above 2. May continue her topicals: Fluocinolone 0.01% solution for scalp and metronidazole 0.75% cream for face as we wait for minocycline to take effect 3. Patient also might take 4 to 6 weeks to see improvement 4. Return to clinic here in 6 weeks for repeat check 5. Patient will likely need to continue oral therapy but at a tapered dosing, and will likely be able to DC her topicals at the time of her next visit. CC: Reshma Baig MD documented in this encounter Plan of Treatment Not on file documented as of this encounter Visit Diagnoses Diagnosis Rosacea Pruritus Unspecified pruritic disorder documented in this encounter Care Teams Hotel Sales Manager Relationship Specialty Start Date End Date Reshma Baig MD [address] [place] [address] PCP - General Family Medicine 11/08/18 06/23/21 documented as of this encounter
--- OUTSIDE RECORDS SUMMARY | 2024-03-17 14:29 | XMS_ITS | Encounter Summary ---
Author Organization [facility] Address [facility] [place] [address] Care Team Providers Care Aboriginal Ceremonial Celebrant Name Role Phone Reshma Baig MD Primary Care Provider [phone] Reason for Visit * Reason Onset Date Comments Advice Only 04/20/2020 Encounter Details Date Type Department Care Team (Late st Contact Info) Description 04/20/2020 Notes Only Cardiology at [address] [place] [address] Lisbeth Cain MD [facility] [place] [address] Advice Only Social History Tobacco Use Types Packs/Day Years [...] Progress Notes * Lisbeth Cain MD - 04/20/2020 1:13 PM EDT Cardiology Consult Team Attending I have seen and examined patient and discussed with the Cardiology Consult Team. She has intermittent afib but more important, has severe . She has cholecystitis and is felt to need urgent intervention. I spoke directly with Dr. Eliezer Rosenthal, General Surgeon. I explained that she will be at high risk for a cardiovascular event given the severe , the urgent nature of surgery, in fection, diabetes, and afib. We discussed options. I have also reached out to the valve team to get feedback on balloon angioplasty, if that is an option and how that will affect wait time to intervention. At this time I am waiting to hear back from the Valve team and will follow up with the surgical team after I hear back. documented in this encounter Plan of Treatment Not on file documented as of this encounter Visit Diagnoses Not on filedocumented in this encounter Care Teams Aboriginal Ceremonial Celebrant Relationship Specialty Start Date End Date Reshma Baig MD [address] [place] [address] PCP - General Family Medicine 11/08/18 06/23/21 documented as of this encounter
--- OUTSIDE RECORDS SUMMARY | 2024-03-17 14:29 | XMS_ITS | Encounter Summary ---
Author Organization [facility] [place] [address] Care Team Providers Care Social Service Worker Name Role Phone Reshma Baig MD Primary Care Provider [phone] Encounter Details Date Type Department Care Team (Late st Contact Info) Description 04/14/2020 Ancillary Procedure Radiology Library at [facility] [place] [address] Magdalene Lopez MD [place] [address] Social History Tobacco Use Types Packs/Day Years [...] Diagnosis Comments FILM LIBRARY STORAGE ONLY DX CHEST Routine 04/14/2020 12:00 AM EDT documented in this encounter Results * Film Library- Storage Only DX Chest (04/14/2020 12:00 AM EDT) Narrative [facility] - 04/19/2020 8:57 AM EDT This exam is auto-finalizing. It's purpose is for storage only. Magdalene Lopez MD IMG FILM LIBRARY ORD ERABLES [facility] [place], [place] documented in this encounter Visit Diagnoses Not on filedocumented in this encounter Care Teams Social Service Worker Relationship Specialty Start Date End Date Reshma Baig MD [address] [place] [address] PCP - General Family Medicine 11/08/18 06/23/21 documented as of this encounter
--- OUTSIDE RECORDS SUMMARY | 2024-03-17 14:30 | XMS_ITS | Encounter Summary ---
Author Organization [facility] Address [facility] [place] [address] Care Team Providers Care Guard Dance Hall Name Role Phone Hannah Gagnon MD Primary Care Provider [phone] Reason for Visit * Reason Comments Diabetes Encounter Details Date Type Department Care Team (Late st Contact Info) Description 12/24/2012 1:00 PM EDT Office [place] [address] Alissa Malave TURN MACHINE OPERATOR [facility] [place] [address] Type II or unspecified type diabetes mellitus [...] Sign Reading Time Taken Comments Blood Pressure 158/79 12/24/2012 1:12 PM EDT Pulse 83 12/24/2012 1:12 PM EDT Temperature - - Respiratory Rate - - Oxygen Saturation - - Inhaled Oxygen Concentration - - Weight 85.1 kg (187 lb 9.6 oz) 12/24/2012 1:12 P M EDT Height 155.6 cm (5' 1.26) 12/24/2012 1:12 PM ED T Body Mass Index 35.15 12/24/2012 1:12 PM EDT documented in this encounter Patient Instructions * Patient Instructions* Alissa Malave APRN - 12/24/2012 1:51 PM EDT juju , okay to use up supply. Take 15 units at night Start mix insulin before breakfast and evening meals. Start 40 units mix insulin before breakfast and evening meals. Target glucose is 130 before breakfast and evening meals. documented in this encounter Progress Notes * Alissa Malave, OBI - 12/24/2012 2:10 PM EDT DATE OF VISIT: 12/24/2012. REASON FOR VISIT: New patient to endocrinology for type 2 DM, in poor control. Also, hypertension, hyperlipidemia, and overweight. BRIEF HISTORY: Presents and states her glucose levels are too high. Sts she had to stop metformin because of diarrhea, which did subside when she stopped the metformin. She has been increasing her Lantus doses, but glucose levels remain high. DIABETES REGIMEN: Lantus SoloSTAR Pen 50 units twice a day. SBGM: Once a day. COMPLICATIONS: None. Family history was reviewed, states several maternal aunts and one maternal uncle had DM. Few paternal aunts had DM as well. Her mother did not have DM, and she in her 90's. Father in his 80's. 24-HOUR MEAL PLAN: Breakfast is oatmeal. Lunch is an egg and occasionally a toast. Dinner is lettuce and tuna fish. 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 PREVENTION STRATEGIES: She does take an Kun inhibitor and a statin. She did have a pneumonia vaccine. She does have annual dilated eye exam, goes to the dentist twice a year. REVIEW OF SYSTEMS: Depression and Mood: Overall, is doing well. Enjoys being a great grandmother and grandmother. Eyes: No recent vision changes. No recent headaches or chest pain or shortness of breath. No recent GI symptoms. Appetite is good. 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 She works 10-hour shifts and then during the day she works in the [employer]. PHYSICAL EXAMINATION: Appearance: She appears strong, she is overweight. Weight today 187 pounds. She states she has gained 9 pounds since stopping the metformin and increasing her Lantus doses. Blood pressure 158/79. Eyes: No retinopathy by green light exam. Neck: No thyromegaly or lymphadenopathy. Heart: Regular rate and rhythm. No murmurs. Lungs are clear to auscultation. Feet: Skin is normal. Pulses are normal. Neuro: Normal sensation to 10 g of pressure. LABORATORY DATA: Hemoglobin A1c on 11/08/2012 was 9.4%. IMPRESSION AND PLAN: Diabetes mellitus type 2, in poor control. Discussed with the patient the available medication options, adding Victoza or Byetta, resuming extending release metformin and introducing slowly, or mixed insulin twice a day. Will start Humalog Mix 75/25 before breakfast and before evening meal. She does not want to waste the supply of Lantus that she has. I advised okay to take 15 units of Lantus in p.m. Reviewed prevention and treatment of hypoglycemia. Advised okay to take a lower amount of mixed insulin, she will start at 40 units before breakfast and before evening meal, and increase doses every few days by 3 units to get glucose levels closer to 130 before breakfast and before evening meals. She agrees to check glucose levels twice a day. Prescription for Humalog Mix 75/25 pen was sent to her pharmacy. She uses the Accu-Chek Selena meter and she will continue to bring that to Appointments. Reminder, patient prefers to be called Gladis. DATE OF DIAGNOSIS OF DIABETES: 2008. She states she was tired at that time. This was a 47-minute office visit with 46 minutes spent counseling [id number] with patient in the management of glucose levels, changing her insulin regimen, reviewing target glucose levels, reviewing insulin pen use. documented in this encounter Plan of Treatment Not on file documented as of this encounter Results * (ABNORMAL) Hemoglobin A1c (03/25/2013 9:43 AM EDT) Hemoglobin A1C 8.3(H) 4.3 - 6.1 % [facility] Comment: The [place] Diabetes Association (ADA) has stated that HbA1c [...] 1:S11-S66. Est Avg Gluc See note mg/dL [facility] Comment: Estimated Average Glucose not [...] into estimated average glucose values. ??Diabetes Care 2008:31(8):6662-1099. Blood specimen (specimen) 03/25/2013 9:43 AM EDT 03/25/2013 9:55 AM EDT Narrative Resulting Agency Comment Spec In Lab Vahid Philip MD CHEMISTRY ORDERABLES Performing Organization Address City/State/[facility] Co de Phone Number [facility] documented in this encounter Visit Diagnoses Diagnosis Type II or unspecified type diabetes mellitus without mention of complication, uncontrolled- Primary documented in this encounter Care Teams Guard Dance Hall Relationship Specialty Start Date End Date Hannah Gagnon MD [address] [place] [id number] PCP - General 08/08/11 11/07/18 documented as of this encounter
--- OUTSIDE RECORDS SUMMARY | 2024-03-17 14:30 | XMS_ITS | Encounter Summary ---
Author Organization [facility] Address [facility] [place] [address] Care Team Providers Care Full Time Name Role Phone Hannah Gagnon MD Primary Care Provider [phone] Reason for Visit * Reason Comments Diabetes Encounter Details Date Type Department Care Team (Late st Contact Info) Description 03/25/2013 9:30 AM EDT Office [place] [address] Alissa Malave APRN [facility] [address] [place]OCRIN[place] [address] Type II or unspecified type diabetes mellitus [...] Sign Reading Time Taken Comments Blood Pressure 150/79 03/25/2013 10:17 AM EDT Pulse 79 03/25/2013 10:17 AM EDT Temperature - - Respiratory Rate - - Oxygen Saturation - - Inhaled Oxygen Concentration - - Weight 87.1 kg (192 lb) 03/25/2013 10:17 AM EDT Height - - Body Mass Index 35.97 12/24/2012 1:12 PM EDT documented in this encounter Patient Instructions * Patient Instructions* Alissa Malave APRN - 03/25/2013 10:51 AM EDT Target glucose under 140 before meals. Okay to lower PM insulin dose by 4 units if fasting glucose in AM is under 90 Okay to increase AM dose by 4 units if glucose before evening meals is above 150 documented in this encounter Progress Notes * Alissa Malave APRN - 03/25/2013 10:58 AM EDT DATE OF VISIT: 03/25/2013 REASON FOR VISIT: Followup type 2 DM. Also, followup hypertension, hyperlipidemia. BRIEF HISTORY: Presents and states glucose levels in a.m. have been very good, sometimes as low as the 90's, glucose levels before evening meal are sometimes as high as the 200s. Asked what to do if she forgets to take the insulin. DIABETES REGIMEN: Diabetes regimen was changed at previous office visit to Humalog mix 75/25, 60 units before breakfast and before evening meal. PREVENTION STRATEGIES: Prevention strategies are up-to-date. She does have an annual dilated eye exam, does go to the dentist, takes amlodipine, takes statin. REVIEW OF SYSTEM: Depression and mood. Overall is doing very well. Eyes: No recent vision changes. No recent headaches or chest pain or shortness of breath. No recent GI symptoms. Appetite is good. Sleep pattern is okay. Skin: No rashes. No psoas. Extremities, was concerned with some feet swelling. 24-HOUR MEAL PLAN: Break fast is cold cereal, lunch is a tuna fish salad, dinner was a frozen Shiv's lasagna. PHYSICAL ACTIVITY: Tries to do some walking, but has a lot of knee pain. DATE OF DIAGNOSIS OF DIABETES: 2008. PHYSICAL EXAMINATION: Appearance: She appears in excellent health. She is overweight. She appears younger than her age. Pleasant and talkative with good eye contact. Eyes: No retinopathy by green light exam. Neck: No thyromegaly or lymphadenopathy. Heart: Regular rate and rhythm. No murmurs. Lungs are clear to auscultation. Feet with mild swelling. Pulses are normal. Neuro: Normal. Sensation to 10g of pressure. LAB DONE TODAY: Hemoglobin A1c, results not available during office visit. Previous was greater than 9%. IMPRESSION AND PLAN: Diabetes mellitus type 2, no change in regimen until after hemoglobin A1 result. Reviewed blood glucose results from memory. Advised okay to decrease p.m. dose of mixed insulin by 4 units if fasting glucose levels are under 90. Advised okay to increase a.m. mixed insulin dose if glucose levels before evening meal are above 150, increase by 4 units, or decrease by 4 units. Blood pressure is not at goal, 150/79. She states when she checks it at home it is always under 120 systolic, but it was over 150 at previous office visit as well. Has not been taking the Norvasc consistently. I wrote a prescription for Norvasc 2.5 mg one p.o. daily and prescription given to the patient. Also wrote prescription for Humalog mix 75/25, 60 units twice daily before meals and given to the patient. SBGM: Two times a day. DX CODE: 250.02. This was a 29-minute office with 28 minutes been counseling [id number] with the patient and the management of glucose levels, discussing how to adjust insulin doses to reach target glucose levels, reviewing blood pressure targets, writing prescription for a lower dose amlodipine 2.5 mg daily and writing prescription for Humalog mix insulin. Return to office in June, will check hemoglobin A1c and other labs that she is due for. She states her insurance just changed and she does not want to do any extra labs that are not absolutely necessary until she learns the coverage of her new insurance better. Will do HDL, VLDL if it has not been checked and if it is not at target. Recent Results (from the past 72 hour(s)) HEMOGLOBIN A1C Component Value Range Hemoglobin A1C 8.3 (*) 4.3 - 6.1 % Est Avg Gluc See note documented in this encounter Plan of Treatment Not on file documented as of this encounter Procedures Procedure Name Priority Date/Time Associated Diagnosis Comments HEMOGLOBIN A1C Routine 03/25/2013 9:43 AM EDT Type II or unspecified type diabetes mellitus without mention of complication, uncontrolled documented in this encounter Results * (ABNORMAL) Hemoglobin A1c (07/01/2013 10:45 AM EST) [facility] Hemoglobin A1C 8.4(H) 4.3 - 6.1 % [facility] Comment: The [place] Diabetes Association (ADA) has stated that HbA1c [...] 1:S11-S66. Est Avg Gluc See note mg/dL [facility] Comment: Estimated Average Glucose not [...] the ADA website: ??http://professional.diabetes.org/glucosecalculator.aspx Dago MOE, Stella Escobar, Hernandez R, et al. ??Translating the A1C assay into estimated average glucose values. ??Diabetes Care 2008:31(8):9572-2078. Blood specimen (specimen) 07/01/2013 10:45 AM EST 07/01/2013 10:49 AM EST Narrative Resulting Agency Comment Spec In Lab Vahid Philip MD CHEMISTRY ORDERABLES [facility] * (ABNORMAL) Hemoglobin A1c (03/25/2013 9:43 AM EDT) Hemoglobin A1C 8.3(H) 4.3 - 6.1 % [facility] Comment: The [place] Diabetes Association (ADA) has stated that HbA1c [...] 1:S11-S66. Est Avg Gluc See note mg/dL [facility] Comment: Estimated Average Glucose not [...] into estimated average glucose values. ??Diabetes Care 2008:31(8):0220-3070. Blood specimen (specimen) 03/25/2013 9:43 AM EDT 03/25/2013 9:55 AM EDT Narrative Resulting Agency Comment Spec In Lab Vahid Philip MD CHEMISTRY ORDERABLES Performing Organization Address City/State/ZIP Co ok Phone Number [facility] documented in this encounter Visit Diagnoses Diagnosis Type II or unspecified type diabetes mellitus without mention of complication, uncontrolled- Primary documented in this encounter Care Teams Full Time Relationship Specialty Start Date End Date Hannah Gagnon MD [address] [place] [address] PCP - General 08/08/11 11/07/18 documented as of this encounter
--- OUTSIDE RECORDS SUMMARY | 2024-03-17 14:30 | XMS_ITS | Encounter Summary ---
Author Organization [facility] Address [facility] [place] [address] Care Team Providers Care Field Scout Name Role Phone Hannah Gagnon MD Primary Care Provider [phone] Reason for Visit * Reason Comments Skin Check Encounter Details Date Type Department Care Team (Late st Contact Info) Description 08/31/2011 3:15 PM EST Office Visit Dermatology [address] [place] [address] [address] [place], [place] [address] Jalil Gómez MD [address] [place] [address] Actinic keratosis (Primary Dx); Seborrheic keratosis Social History Tobacco Use Types Packs/Day Years Used Date Smoking Tobacco: Never Sex and Gender Information Value Date Recorded Sex Assigned at Not on file Gender Identity Not on file Sexual Orientation Not on file documented as of this encounter Progress Notes * Jalil Gómez MD - 08/31/2011 4:10 PM EST Problem: Skin checkup. Shannan follows up after last being seen by me in June of 1994. 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 One has been present for quite some time on her right cheek but is getting larger and thicker and is quite hard. Physical examination reveals a pleasant 70-year-old woman who has a waxy stuck on appearing seborrheic keratosis which is hyperkeratotic 1.5cm in diameter present on her right lateral cheek in the sideburn area. She has actinics present over the malar prominences and on the bridge of her nose. She is blue eyed and fair skinned and by her accounting of [place] ethnic ancestry. Careful examination of the head, neck, chest, back, hands, arms, forearms, thighs and calves is otherwise benign. Assessment & Plan: Seborrheic keratosis often irritated, right lateral cheek. a. After obtaining patient consent, the site was anesthetized and removed with shave biopsy. b. Submitted for pathologic analysis. c. Wound care instructions and supplies given. d. Discussed the possibility that this may eventually start to grow back again. e. Will notify patient of right lateral cheek biopsy results within the next week. Actinic keratoses. a. LN2 x2 applied to each of three sites. Benign skin examination. a. Patient reassured about benign skin tag on right lateral neck, and benign nevi on torso. b. RTC p.r.n. Copy: Hannah Gagnon MD Pathology Addendum per [facility] 09/06/11 : Seborrheic Keratosis documented in this encounter Plan of Treatment Not on file documented as of this encounter Visit Diagnoses Diagnosis Actinic keratosis- Primary Seborrheic keratosis Other seborrheic keratosis documented in this encounter Care Teams Field Scout Relationship Specialty Start Date End Date Hannah Gagnon MD [address] [place] [id number] PCP - General 08/08/11 11/07/18 documented as of this encounter
--- OUTSIDE RECORDS SUMMARY | 2024-03-17 14:30 | XMS_ITS | Encounter Summary ---
Author Organization [facility] Address [facility] [place] [address] Care Team Providers Care Bell Staff Name Role Phone Hannah Gagnon MD Primary Care Provider [phone] Encounter Details Date Type Department Care Team (Late st Contact Info) Description 01/17/2013 Telephone [place] [address] Humera Womack MD [facility] [place] [address] Social History Tobacco Use Types Packs/Day Years Used Date Smoking Tobacco: Never Sex and Gender Information Value Date Recorded Sex Assigned at Not on file Gender Identity Not on file Sexual Orientation Not on file documented as of this encounter Miscellaneous Notes * Telephone Encounter - Humera Womack - 01/17/2013 1:05 PM EDT Called Ms Moody. She states her both ankles are swollen. No CP, SOB. No fever. No myalgias. No calf pain. No new meds. May be slight increased salt intake yesterday. C/o mild headache. No injury toleg. Leg not red. So since all her ROS is negative i asked to decrease salt intake and may be try compression stockings. If any of the above symptoms come up asked her to call us back. documented in this encounter Plan of Treatment Not on file documented as of this encounter Visit Diagnoses Not on filedocumented in this encounter Care Teams Bell Staff Relationship Specialty Start Date End Date Hannah Gagnon MD [address] [place] [address] PCP - General 08/08/11 11/07/18 documented as of this encounter
--- OUTSIDE RECORDS SUMMARY | 2024-03-17 14:30 | XMS_ITS | Encounter Summary ---
Author Organization [facility] [address] Care Team Providers Care Gate Keeper Name Role Phone Hannah Gagnon MD Primary Care Provider [phone] Reason for Visit * Reason Onset Date Comments Other 01/17/2013 Encounter Details Date Type Department Care Team ([facility] Contact Info) Description 01/17/2013 Telephone [place] [address] Velma Watkins LPN Other Social History Tobacco Use Types Packs/Day Years Used Date Smoking Tobacco: Never Sex and Gender Information Value Date Recorded Sex Assigned at Not on file Gender Identity Not on file Sexual Orientation Not on file documented as of this encounter Miscellaneous Notes * Telephone Encounter - Velma Watkins LPN - 01/17/2013 12:04 PM EDT Patient left message stating that her feet have been swollen for the last 2 days. She would like advise on possible causes (new medication) and what to do to help the swelling subside. documented in this encounter Plan of Treatment Not on file documented as of this encounter Visit Diagnoses Not on filedocumented in this encounter Care Teams Gate Keeper Relationship Specialty Start Date End Date Hannah Gagnon MD [address] [place], [place] [address] PCP - General 08/08/11 11/07/18 documented as of this encounter
--- NOTE | 2024-03-17 14:38 | ED.GENADUL_ITS ---
Discharge Plan Disposition Patient Disposition: Home Condition: Improving Discharge Details Clinical Impression: Back pain Primary Care Provider: Regis Muller ED Provider: Graeme Soares Home Meds and New Rx's Prescriptions: New cyclobenzaprine 5 mg tablet 5 mg PO QHS PRN (Reason: muscle spasm) Qty: 7 0RF lidocaine [Lidoderm] 5 % adhesive patch,medicated 1 patch topical DAILY PRNQty: 15 0RF Rx Instructions: leave on most painful area for up to 12 hrs No Action ferrous gluconate 324 mg (37.5 mg iron) tablet 324 mg PO DAILY amiodarone [Pacerone] 200 mg tablet 200 mg PO BID insulin glargine [Lantus U-100 Insulin] 100 UNITS/ML solution 25 unit Sub-Q BID Humalog U-100 Insulin 100 UNIT/ML cartridge 15 unit Sub-Q TID ascorbic acid (vitamin C) [Vitamin C] 1,000 mg Tablet 1,000 mg PO DAILY Multi For Her 18 mg iron-600 mcg-40 mcg Capsule 1 tab-cap PO DAILY pantoprazole [Protonix] 40 mg Tablet,Delayed Release (Dr/Ec) 40 mg PO BID rosuvastatin 20 mg Tablet 20 mg PO HS clopidogrel [Plavix] 75 mg tablet 75 mg PO DAILY metoprolol succinate 100 mg tablet extended release 24 hr 200 mg PO QHS amitriptyline 10 mg tablet 10 mg PO DIRECTED Patient Comments: TAKE ONE-HALF TO TWO TABLETS BY MOUTH AT BEDTIME Rx Instructions: 1/2 -2 tablets every night metronidazole 0.75 % cream 1 applic TOPICAL BID Patient Comments: APPLY A SMALL AMOUNT TO AFFECTED AREA TWICE A DAY glipizide 5 mg tablet 5 mg PO DAILY Patient Comments: TAKE ONE TABLET BY MOUTH EVERY DAY sucralfate 1 gram Tablet 1 g PO AC & HS Qty: 120 0RF vitamin B complex [B Complex-Vitamin B12] 1 EACH tablet 1 ea PO DAILY cholecalciferol (vitamin D3) [Vitamin D3] 1,000 UNIT capsule 1,000 unit PO DAILY losartan 100 MG tablet 100 mg PO HS (DME) OneTouch Ultra Test Strip MISCELLANEOUS Patient Comments: TEST THREE TIMES A DAY Discharge Instructions Instructions: Low Back Pain ED HPI General Date/Time Provider Initiated Documentation: 03/17/24 14:14 . HPI Narrative: 83 yr old female hx of chronic recurrent sciatica presents with lower back pain radiating down right leg, atraumatic, no bowel or bladder dysfunction, no falls; ambulatory with some pain Related Data Home Medications ?Medication ?Instructions ?Recorded ?Confirmed insulin glargine 100 unit/mL 25 unit subcut BID 11/28/15 03/17/24 subcutaneous solution (Lantus U-100 Insulin) insulin lispro 100 unit/mL 15 unit subcut TID 11/28/15 03/17/24 subcutaneous cartridge (Humalog U-100 Insulin) cholecalciferol (vitamin D3) 25 1,000 unit PO DAILY 01/30/18 03/17/24 mcg (1,000 unit) capsule (Vitamin D3) losartan 100 mg tablet 100 mg PO HS 01/30/18 03/17/24 vitamin B complex (B 1 ea PO DAILY 01/30/18 03/17/24 Complex-Vitamin B12 tablet) ascorbic acid (vitamin C) 1,000 mg 1,000 mg PO DAILY 04/14/20 03/17/24 tablet (Vitamin C) [id number] fumarate 18 1 tab-cap PO DAILY 04/14/20 03/17/24 mg-FA 600 mcg-vit K 40 mcg capsule (Multi For Her) pantoprazole 40 mg tablet,delayed 40 mg PO BID 06/10/20 03/17/24 release (Protonix) rosuvastatin 20 mg tablet 20 mg PO HS 06/10/20 03/17/24 amiodarone 200 mg tablet (Pacerone) 200 mg PO BID 11/05/20 03/17/24 clopidogrel 75 mg tablet (Plavix) 75 mg PO DAILY 11/05/20 03/17/24 ferrous gluconate 324 mg (37.5 mg 324 mg PO DAILY 11/05/20 03/17/24 iron) tablet amitriptyline 10 mg tablet 10 mg PO DIRECTED 07/22/21 03/17/24 glipizide 5 mg tablet 5 mg PO DAILY 07/22/21 03/17/24 metoprolol succinate 100 mg 200 mg PO QHS 07/22/21 03/17/24 tablet,extended release 24 hr metronidazole 0.75 % topical cream 1 applic topical BID 07/22/21 03/17/24 sucralfate 1 gram tablet 1 g PO AC & HS #120 tabs 07/23/21 03/17/24 blood sugar diagnostic (OneTouch 03/17/24 03/17/24 Ultra Test strips) cyclobenzaprine 5 mg tablet 5 mg PO QHS PRN muscle spasm #7 03/17/24 tabs lidocaine 5 % topical patch 1 patch topical DAILY PRN #15 ea 03/17/24 (Lidoderm) Previous Rx's ?Medication ?Instructions ?Recorded sucralfate 1 gram tablet 1 g PO AC & HS #120 tabs 07/23/21 cyclobenzaprine 5 mg tablet 5 mg PO QHS PRN muscle spasm #7 03/17/24 tabs lidocaine 5 % topical patch 1 patch topical DAILY PRN #15 ea 03/17/24 (Lidoderm) Allergies Allergy/AdvReac Type Severity Reaction Status Date / Time codeine AdvReac Mild Nausea Verified 03/17/24 14:11 diltiazem AdvReac Mild Unknown Verified 03/17/24 14:11 epinephrine AdvReac Mild Unknown Verified 03/17/24 14:11 lisinopril AdvReac Mild cough Verified 03/17/24 14:11 pollen extracts AdvReac Topical Verified 03/17/24 14:11 Irritation General Stated Complaint: Nk/Back Pain LACEY: 3 Exam Narrative Exam Narrative: resting comfortably, no acute distress no midline spinal tenderness stepoff or deformity full strenght and sensation bilateral lower extremities, ambulatory with some disfomfort, no ataxia Course Vital Signs Vital signs: Vital Signs Temperature 37.0 C 03/17/24 14:07 Pulse 75 03/17/24 14:07 Respiratory Rate 16 03/17/24 14:07 Blood Pressure 166/67 H 03/17/24 14:07 Pulse Oximetry 96 03/17/24 14:07 Temperature 37.0 C 03/17/24 14:07 Temperature Source Temporal Artery Scan 03/17/24 14:07 Pulse 75 03/17/24 14:07 Respiratory Rate 16 03/17/24 14:07 Respiratory Effort Normal, Non-Labored 03/17/24 14:09 Blood Pressure 166/67 H 03/17/24 14:07 Blood Pressure Position Supine 03/17/24 14:07 Pulse Oximetry 96 03/17/24 14:07 Oxygen Delivery Method Room Air 03/17/24 14:07 Oxygen Flow Rate 0 03/17/24 14:07 Pain Level 10 03/17/24 14:07 Medical Decision Making 83 yr olf demale with recurrent sciatica, no midline tenderness, no trauma, neuro intact, ambulatory; no bowel or bladder dysfunction; trial of dex, toradol, cyclobenzaprine, lidoderm; likely sciatica, no evidence of cauda equina or spinal epidural abscess or hematoma from hx and physical 16: 55 resting comfortably in no acute distress. Neurologically intact Quality:SDOH Health Related Social Needs: No Data to Display PFSH All Active Problems (Updated 03/17/24 @ 16:55 by Graeme Soares MD) Back pain (Acute) Exposure to COVID-19 virus (Acute ~04/12/23) Acute on chronic diastolic CHF (congestive heart failure), NYHA class 2 (Chronic) Cervical disc herniation (Chronic) Diabetes mellitus (Chronic) S/P TAVR (transcatheter aortic valve replacement) (Acute) Anemia (Acute) Medical History Acute cholecystitis Aortic stenosis Atherosclerotic cardiovascular disease BP (high blood pressure) Closed fracture of left distal fibula (03/31/19) Degenerative joint disease of right knee Paroxysmal atrial fibrillation Spinal stenosis Surgical History H/O esophagogastroduodenoscopy (~2019) History of cataract surgery History of hysterectomy S/P colonoscopy (~2019) Social History Smoking/Tobacco Use Status: Never Smoking risk assessment performed?: Yes Alcohol Intake: never Drug use: Never Substance use type: does not use Housing: house What type of physical activity do you participate in: additional Details: PT to start Do you feel safe at home: Yes Do you feel safe in your relationship?: Yes
[2024-03-17] MEDS: Ketorolac 15 MG/ML VIAL IM (16:08)
[2024-03-17] MEDS: Cyclobenzaprine 10 MG TAB PO (16:08)
[2024-03-17] MEDS: Dexamethasone 10 MG/ML VIAL PO (16:08)
[2024-03-17] MEDS: Lidocaine 5% Patch 1 PATCH TP (16:09)
[2024-03-17 16:28] VITALS: PULSE 78; RESP 16; TEMP 36.5; O2SAT 97
--- NOTE | 2024-03-18 12:32 | NUR.NOTE ---
Nursing Note: Received call from pt PCP that medications were prescribed for this pt but unsure what pharmacy they were called to. Updated that they were sent to [facility] and that it is also listed on their discharge paperwork for future reference.
== END 2024-03-17 17:14 | disposition home or self-care (01) ==
PROVIDERS: Emergency Provider Emergency Medicine; PCP Family Medicine
DX: M54.50 Low back pain, unspecified (principal); I48.0 Paroxysmal atrial fibrillation; E11.9 Type 2 diabetes mellitus without complications; Z79.4 Long term (current) use of insulin; Z79.84 Long term (current) use of oral hypoglycemic drugs; Z79.02 Long term (current) use of antithrombotics/antiplatelets; Z95.2 Presence of prosthetic heart valve
CPT/HCPCS: 96372; 99284; 99283; J1100; J1885

== ENCOUNTER 2024-04-28 14:14 | Emergency (ER) | payer MEDICARE, SELFPAY ==
[2024-04-28 14:19] VITALS: PULSE 75; RESP 24; TEMP 36.3; O2SAT 93
--- NOTE | 2024-04-28 14:30 | DI.CT_ITS ---
Exam(s) CT LUMBAR SPINE WO EXAM: CT LUMBAR SPINE WO CLINICAL HISTORY: midline l3 pain for years with right leg radiati. TECHNIQUE: Imaging Protocol: Axial computed tomography images with coronal and sagittal reformatted images were created and reviewed COMPARISON: CR XR LUMBAR SPINE COMPLETE from 12/25/2023 FINDINGS: Bones: There are no fractures, listhesis, nor pars defects. There are no lytic blastic osseous lesio ns evident.No significant scoliosis. INDIVIDUAL LEVELS: T12-L1:Normal disc height. No disc herniation nor significant central spinal canal stenosis. No sig nificant foraminal stenosis. No significant facet arthropathy. L1-2: Schmorl's node invagination at superior endplate of L2 noted. There is disc space narrowing n oted posteriorly at this level. There is relatively symmetrical annular bulging. Also posterior ost eophytic ridging. There is mild-moderate central spinal canal stenosis at this level. No significan t facet arthropathy evident. No true foraminal stenosis on either side. L2-3: There is symmetrical disc space narrowing posteriorly at this level. There is symmetrical nick ular bulging without a dominant disc herniation. Mild central spinal canal stenosis. Mild facet deg enerative changes. No significant foraminal stenosis. L3-4: This level exhibits normal disc height. Posteriorly there is broad symmetrical annular bulgin g evident. There mild central canal stenosis due to annular bulging, short AP dimensions of the pedi cles, and mild degenerative changes in the facet joints. There is no prominent ligamentum flavum hyp ertrophy. Annular bulging extends into the exiting neural foramen at this level but there is no true foraminal stenosis evident. L4-5: This level exhibits chronic disc space narrowing and vacuum phenomenon throughout the disc spa ce. There is broad symmetrical annular bulging. No obvious focal disc herniation. There is severe central spinal canal stenosis due to short AP dimensions the pedicles, broad annular bulging and face t arthropathy. There is no prominent ligamentum flavum hypertrophy. related to the short AP dimensio ns of the pedicles and degenerative change in the facet joints, compound by some a annular bulging in to the floor of the exiting neural foramina bilaterally. L5-S1: This disc level also exhibits some vacuum phenomenon but relatively preserved disc height. T here is no evidence of disc herniation or central canal stenosis at this level. Only mild facet arth ropathy evident. There is an element of foraminal stenosis bilaterally due to disc height loss poste riorly with mild impingement of the exiting nerve roots within the bilateral neural foramen, these im pinged between the overlying L5 pedicles and subjacent annular bulging and posterior osteophytic ridg ing. The visualized sacroiliac joints and sacrum appear age-appropriate PARASPINAL SOFT TISSUES: Visualized paraspinal tissues appear unremarkable. The abdominal aorta is heavily calcified but not enlarged. The iliac arteries are also not aneurysma l. IMPRESSION: 1. Multilevel findings as described above. However, the most significant findings appear to be at L4 -5 level where there is severe central spinal canal stenosis due to broad annular bulging, short AP d imensions of the pedicles and bilateral facet arthropathy. There is also significant bilateral pardeep inal stenosis at this level which is none mostly related to the short AP dimensions of the pedicles a nd degenerative change in the facet joints, compound by some a annular bulging into the floor of the exiting neural foramina bilaterally. 2. Other findings as described per individual level above. Report called by myself to ER Physician 04/28/2024 at 3:38 p.m. RADIATION DOSE DELIVERED: 811.14mGy.cm Total DLP DATA REPOSITORY: All CT scans at this facility are submitted to the National Radiology Data Registry (NRDR) Dose Index Registry (DIR) with the [employer] (ACR). RADIATION OPTIMIZATION: All CT scans at this facility use at least one of these dose optimization te chniques: automated exposure control; mA and/or kV adjustment per patient size (includes targeted exa ms where dose is matched to clinical indication); or iterative reconstruction.
[2024-04-28] MEDS: Lidocaine 5% Patch 1 PATCH TP (14:54)
[2024-04-28] MEDS: Pantoprazole 40 MG TABCR PO (14:54)
[2024-04-28] MEDS: predniSONE 20 MG TAB 60 MG PO (14:54)
--- OUTSIDE RECORDS SUMMARY | 2024-04-28 15:20 | XMS_ITS | Encounter Summary ---
Author Organization [facility] Address [facility] [place] [address] Care Team Providers Care Resaw Operator Name Role Phone Regis Muller MD Primary Care Provider [phone] Encounter Details Date Type Department Care Team (Late st Contact Info) Description 12/27/2021 8:00 AM EDT - 12/27/2021 8:30 AM EDT Surgery [place] [address] Wallace Heller MD [facility] [place] [address] VIDEO CAPSULE ENDOSCOPY (WRVU 2.24) Social History [...] Brand, 250.02. 1 each 0 12/02/2013 [facility] Use twice daily or as needed. 200 each 3 12/02/2013 documented as of this encounter H&P Notes * Wallace Heller MD - 12/27/2021 8:13 AM EDT Patient Name: Shannan Moody Patient Age: 81 y.o. Birthdate: 1940 Admit date: 12/27/2021 Attending Physician: Wallaec Heller MD Gastroenterology & Hepatology Pre-Procedure History [...] complication. Informed Consent signed by patient (or equal opportunity representative). documented in this encounter Plan of Treatment Not on file documented as of this encounter Procedures Procedure Name Priority Date/Time Associated Diagnosis Comments VIDEO CAPSULE ENDOSCOPY Routine 12/27/2021 8:58 AM EDT [facility] Intraluminal Esophagus-Ileum W/I&R (17208) 12/27/2021 8:00 AM EDT Iron deficiency anemia, unspecified iron deficiency anemia type documented in this encounter Results * VIDEO CAPSULE ENDOSCOPY (12/27/2021 8:58 AM EDT) [facility] VIDEO CAPSULE ENDOSCOPY [facility] Endoscopy Procedure Date: 12/27/2021 8:58 AM ? Patient Name: Shannan Moody ? N: [id number] ? Date of : 1940 ? Age: 81 ? Order #: [id number] ? Instrument Name: ? Procedure: ? Video [...] performed the entire procedure. ? Dr. Bronson Helelr ___ Wallace Heller MD 01/06/2022 2:42:57 PM Number of Addenda: 0 Note Initiated On: 12/27/2021 8:58 AM PROVATION 12/27/2021 8:58 AM EDT Regis Muller MD GENERAL SURGICAL ORD [facility] PROVATION documented in this encounter Visit Diagnoses Diagnosis Iron deficiency anemia, unspecified iron deficiency anemia type documented in this encounter Care Teams Resaw Operator Relationship Specialty Start Date End Date Regis Muller MD [address] [place] [address] PCP - General Emergency Medicine 06/24/21 documented as of this encounter
--- OUTSIDE RECORDS SUMMARY | 2024-04-28 15:20 | XMS_ITS | Clinical Summary ---
Author Organization [facility] Address [facility] [place] [address] Care Team Providers Care Garage Laborer Name Role Phone Regis Muller MD Primary Care Provider [phone] Allergies No known active allergies Medications Medication [...] (08/23/2021): Added automatically from request for surgery [id number] 06/24/2020: Valvuloplasty Conclusions: * Severe aortic stenosis [...] keratosis 08/31/2011 07/13/2020 Seborrheic keratosis 08/31/2011 020 Social History Tobacco Use Types Packs/Day Years [...] Date/Time Associated Diagnosis Comments COMPREHENSIVE METABOLIC PANEL Routine 10/24/2021 12:41 PM EST Abnormal LFTs [...] panel (non-fasting) (10/24/2021 12:41 PM EST) Glucose 129 65 - 199 mg/dL [facility] Comment:Diabetes: >=200 mg/d L plus symptoms Blood Urea Nitrogen 13 8 - 18 mg/dL [facility] Creatinine 0.77 0.70 - 1.20 mg/dL [facility] Sodium 141 135 - 145 mmol/L [facility] Potassium 3.7 3.5 - 5.0 mmol/L [facility] Comment: Please note: ??Patients with WBC >100,000 may have falsely elevated Potassium levels. ??For accurate Potassium quantification in these patients send serum separator tube (gold top) for subsequent determinations. ??Contact the Clinical Chemistry Laboratory if there are any questions. Chloride 107 98 - 107 mmol/L [facility] Carbon Dioxide 23 22 - 31 mmol/L [facility] Anion Gap 11 5 - 15 mmol/L [facility] Calcium 9.0 8.5 - 10.5 mg/dL [facility] Protein, Total 6.4 6.1 - 8.0 g/dL [facility] Albumin 3.7 3.2 - 5.2 g/dL [facility] Aspartate Aminotransferase 92(H) 0 - 30 unit/L [facility] Alanine Aminotransferase 65(H) 0 - 30 unit/L [facility] Alkaline Phosphatase 334(H) 35 - 105 unit/L [facility] Bilirubin, Total 0.8 0.2 - 1.3 mg/dL [facility] Est Glomerular Filtration Rate 72 >=60 mL/min/1. 73 m?? [facility] Comment: This patient? s estimated [...] Lab Wallace Heller MD CHEMISTRY ORDERAB LES [facility] [place] [address] * COLONOSCOPY (09/12/2020 12:56 PM EST) COLONOSCOPY [facility] Endoscopy Procedure Date: 09/12/2020 12:56 PM ? Patient Name: Shannan Moody ? Date of : 1940 ? Age: 80 ? Order #: [id number] ? Instrument Name: [id number] ? Procedure: ? Colonoscopy Indications: ? Iron [...] Hemoglobin A1c (09/11/2020 5:36 AM EST) Hemoglobin A1c 8.3(H) 4.3 - 5.6 % [facility] Comment: Reference Range: 4.3 - [...] Mellitus, Diabetes Care 2013; 36: Suppl. 1, S67-13 Estimated Average Glucose See note mg/dL [facility] Comment: Estimated Average Glucose not [...] into estimated average glucose values. ??Diabetes Care 2008:31(8):6119-4837. Blood specimen (specimen) 09/11/2020 5:36 AM EST 09/11/2020 6:02 AM EST Narrative Resulting Agency Comment Spec In Lab Amarilys Cerna MD CHEMISTRY ORDERABLES Performing Organization Address City/[facility] Co de Phone Number [facility] [place] [address] * U Albumin/Cre Ratio (02/28/2017 10:33 AM EDT) Albumin / Creatinin Ratio, Urine 10 0 - 29 mcg/mg Cr [facility] Comment: Reference Ranges: <30 mcg/mg: [...] [employer] Supplements (2012) 2, 357? 362 Albumin, Urine 7.3 mg/L [facility] Creatinine, Urine 76 mg/dL [facility] Urine specimen (specimen) 02/28/2017 10:33 AM EDT 02/28/2017 10:54 AM EDT Narrative Resulting Agency Comment Spec In Lab Vahid Philip MD URINE ORDERABLES [facility] [place] [address] from Last 3 Months or Most Recently [...] Status decision made by: Patient Care Teams Garage Laborer Relationship Specialty Start Date End Date Regis Muller MD [address] [place] [address] PCP - General Emergency Medicine 06/24/21
--- OUTSIDE RECORDS SUMMARY | 2024-04-28 15:20 | XMS_ITS | Encounter Summary ---
[place] [address] Care Team Providers Care Tar Boiler Name Role Phone Regis Muller MD Primary Care Provider [phone] Reason for Referral * Consultation (Routine) - Closed Specialty Diagnoses / Procedures Referred By Malini carlson Referred To [facility] Diagnoses Low back pain, unspecified back pain laterality, unspecified chronicity, unspecified whether sciatica present Re establish low back pain/? new imaging/? injections(prev JEG pt) Regis Muller MD [address] [place] [address] [facility] [place] [address] Referral ID Status Reason Start Date Expiration Date V isits Requested Visits Authorized [id number] Closed Consult, Test & Treat PCP Updated and/or Approved 10/13/2022 10/13/2023 1 1 Encounter Details Date Type Department Care Team (Latest Contact Info) Description 10/13/2022 Transcribe Orders eDH Incoming Referrals [phone] Regis Muller MD [address] [place] [address] Low back pain, unspecified back [...] present documented in this encounter Care Teams Tar Boiler Relationship Specialty Start Date End Date Regis Muller MD [address] [place] [id number] PCP - General Emergency Medicine 06/24/21 documented as of this encounter
--- OUTSIDE RECORDS SUMMARY | 2024-04-28 15:20 | XMS_ITS | Referral Summary ---
Author Organization [facility] Address [address] [place] [address] Care Team Providers Care Pharmaceutical Botanist Name Role Phone Hannah Gagnon MD Primary Care Provider [phone] Medications Medication Sig Dispensed Refills Start Date [...] of Treatment Not on file Care Teams Pharmaceutical Botanist Relationship Specialty Start Date End Date Hannah Gagnon MD [address] [place] [address] PCP - General 12/06/12
--- OUTSIDE RECORDS SUMMARY | 2024-04-28 15:20 | XMS_ITS | Continuity of Care Document ---
Author Organization [facility] Address [address] [place] [address] Care Team Providers Care Joggle Press Operator Name Role Phone JERALD STEPHENS Primary Care Physician Encounter [facility] NBR [id number] Date(s): 09/05/23 - 09/05/23 [facility] [address] [place] [address] [place] Discharge Disposition: Home Patient Care team information Care Team Personnel Name: JERALD STEPHENS Position: No Access Member Role: Primary Care Physician Address: Address: [address] [address]- [place]
--- OUTSIDE RECORDS SUMMARY | 2024-04-28 15:20 | XMS_ITS | Encounter Summary ---
Author Organization [facility] Address [address] [place] [address] Care Team Providers Care Dray Truck Driver Name Role Phone Hannah Gagnon MD Primary Care Provider Encounter Details Date Type Department Care Team (Late st Contact Info) Description 04/18/2020 Lab Requisition [facility] Pathology & Laboratory Medicine - [address] [id number] Outr Resulting Lab, Provider Social History Tobacco [...] Outr Resulting Lab MICROBIOLOGY - GENERAL ORDERABLES [facility] [address] [place] [address] * COVID-19 TESTING (04/18/2020 9:22 EDT) COVID-19 rt-PCR Result Negative Negative 04/18/2020 20:47 EDT [facility] Comment: This test has not [...] history, and epidemiological information. Performed on the Datumate Fusion instrument Performing Lab [facility] Lab 04/18/2020 20:47 EDT [facility] Swab 04/18/2020 9:22 EDT 04/18/2020 17:03 EDT Provider Outr Resulting Lab MICROBIOLOGY - GENERAL ORDERABLES [facility] [address] [place] [address] documented in this encounter Visit Diagnoses Not on filedocumented in this encounter Care Teams Dray Truck Driver Relationship Specialty Start Date End Date Hannah Gagnon MD [address] [place] [address] PCP - General 12/06/12 documented as of this encounter
--- OUTSIDE RECORDS SUMMARY | 2024-04-28 15:20 | XMS_ITS | Encounter Summary ---
Author Organization [place] [address] Care Team Providers Care Broadcast Transmitter Operator Name Role Phone Regis Muller MD Primary Care Provider [phone] Encounter Details Date Type Department Care Team (Late st Contact Info) Description 12/12/2021 [place] [id number] Asha Harding RN Social History Tobacco Use [...] NURSE NOTE Date:12/15/21 Per request of this justowriter operator called patient to follow up on potential interest in study [id number]. Call placed to patient x3 on three separate days. Left voicemail x3 requesting patient call this justowriter operator back if still interested. Contact name and number provided. Updated PI documented in this encounter Plan of Treatment Not on file documented as of this encounter Visit Diagnoses Not on filedocumented in this encounter Care Teams Broadcast Transmitter Operator Relationship Specialty Start Date End Date Regis Muller MD [address] [place] [address] PCP - General Emergency Medicine 06/24/21 documented as of this encounter
--- OUTSIDE RECORDS SUMMARY | 2024-04-28 15:20 | XMS_ITS | Encounter Summary ---
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 RAD CAT SCAN ??? HYSTERECTOMY, VAGINAL ??? IR BILIARY TUBE CHECK/CHANGE/REMOVE 06/03/2020 IR Biliary Tube Check/Change/Remove 06/03/2020 Jos Collins, DO [facility] INTERVENTIONL RAD ??? IR CHOLECYSTOSTOMY TUBE PLACEMENT 04/22/2020 IR Cholecystostomy Tube Placement 04/22/2020 Jos Collins, DO [facility] INTERVENTIONL RAD ??? IR DRAIN CHECK/CHANGE/REMOVE 05/19/2020 IR Drain Check/Change/Remove 05/19/2020 Jos Collins, DO [facility] INTERVENTIONL RAD ? ? PRG GI IMAGING INTRALUMINAL ESOPHAGUS-ILEUM W/I&R N/A 12/27/2021 VIDEO CAPSULE ENDOSCOPY performed by Wallace Heller MD at [facility] ENDOSCOPY ??? PRO COLONOSCOPY, DIAGNOSTIC N/A 09/12/2020 COLONOSCOPY, DIAGNOSTIC performed by Mane Avila MD at [facility] ENDOSCOPY ??? PRO LAP, CHOLECYSTECTOMY/GRAPH N/A 07/15/2020 LAPAROSCOPIC CHOLECYSTECTOMY WITH CHOLANGIOGRAM (WRVU 11.47) performed by Hong Rosenthal MD at [facility] MAIN OR ??? PRO UPPER GI ENDOSCOPY, BIOPSY N/A 09/12/2020 EGD WITH BIOPSY (WRVU 2.49) performed by Mane Avila MD at [facility] ENDOSCOPY ??? PRO UPPER GI ENDOSCOPY, DIAGNOSTIC N/A 05/03/2020 EGD, UPPER GI ENDOSCOPY performed by Brigitte Graf MD at [facility] ENDOSCOPY ALLERGIES: Patient has no [...] tablet by mouth daily. (Patient taking differently: [id number] mg by mouth daily.) 90 tablet 3 [...] block-cancelled due to HTN. Kia Reno MD Printer Maintainer of [facility] [address] [address] / [facility] documented in this encounter Plan of Treatment Not on file documented as of this encounter Procedures Procedure Name Priority Date/Time Associated Diagnosis Comments NERVE BLOCK, OTHER PERIPHERAL NERVE OR BRANCH Routine 12/30/2021 10:29 AM EDT Cluneal neuropathy documented in this encounter Visit Diagnoses Diagnosis Cluneal neuropathy documented in this encounter Care Teams Engraving Operator Relationship Specialty Start Date End Date Regis Muller MD [address] [place] [address] PCP - General Emergency Medicine 06/24/21 documented as of this encounter
--- OUTSIDE RECORDS SUMMARY | 2024-04-28 15:20 | XMS_ITS | Encounter Summary ---
Author Organization [facility] Address [facility] [place] [address] Care Team Providers Care Behavioral Sciences Department Chair Name Role Phone Regis Muller MD Primary Care Provider [phone] Encounter Details Date Type Department Care Team (Late st Contact Info) Description 12/07/2021 [place]phone [place] [address] Eamon Lange MD [facility] [address] GASTROENTEROLOGY [place] [address] Social History Tobacco Use Types Packs/Day Years [...] on filedocumented in this encounter Care Teams Behavioral Sciences Department Chair Relationship Specialty Start Date End Date Regis Muller MD [address] [place] [address] PCP - General Emergency Medicine 06/24/21 documented as of this encounter
--- OUTSIDE RECORDS SUMMARY | 2024-04-28 15:20 | XMS_ITS | Encounter Summary ---
Author Organization [facility] [place] [address] Care Team Providers Care Satellite Tv Installer Name Role Phone Regis Muller MD Primary Care Provider [phone] Encounter Details Date Type Department Care Team (Late st Contact Info) Description 08/30/2021 10:30 AM EST Office Visit Cardiology at [address] [address] S/P TAVR (transcatheter aortic valve replacement) Social [...] replacement) documented in this encounter Care Teams Satellite Tv Installer Relationship Specialty Start Date End Date Regis Muller MD [address] [place], [place] [address] PCP - General Emergency Medicine 06/24/21 documented as of this encounter
--- OUTSIDE RECORDS SUMMARY | 2024-04-28 15:20 | XMS_ITS | Encounter Summary ---
Author Organization [facility] [place] [address] Care Team Providers Care Conveyor Man Name Role Phone Regis Muller MD Primary Care Provider [phone] Reason for Referral * Consultation (Routine) - Authorized Specialty Diagnoses / Procedures Referred By Malini carlson Referred To Contact [facility] Diagnoses Low back pain, unspecified back pain laterality, unspecified chronicity, unspecified whether sciatica present Pain-Low back pain/? new imaging/? injections/ prev JEG pt Last seen 2021 restablish care Regis Muller MD [address] [place] [address] [facility] [place] [address] Referral ID Status Reason Start Date Expiration Date Visits Requested Visits Authorized [id number] Authorized Consult, Test & Treat PCP Updated and/or Approved 05/02/2023 05/01/2024 1 1 Encounter Details Date Type Department Care Team (Latest Contact Info) Description 05/02/2023 Transcribe Orders eDH Incoming Referrals [phone] Regis Muller MD [address] [place] [address] Low back pain, unspecified back [...] present documented in this encounter Care Teams Conveyor Man Relationship Specialty Start Date End Date Regis Muller MD [address] [place] [address] PCP - General Emergency Medicine 06/24/21 documented as of this encounter
--- OUTSIDE RECORDS SUMMARY | 2024-04-28 15:20 | XMS_ITS | Encounter Summary ---
Author Organization [facility] Address [facility] [place] [address] Care Team Providers Care Interior Design Professional Name Role Phone Regis Muller MD Primary Care Provider [phone] Encounter Details Date Type Department Care Team (Late st Contact Info) Description 12/30/2021 10:30 AM EDT - 12/30/2021 11:00 AM EDT Surgery [place] [address] Kia Reno MD [facility] [place] [address] Not Performed NERVE BLOCK, OTHER PERIPHERAL NERVE [...] DRAINAGE 04/28/2020 CT Guided Drain Peritoneal 04/28/2020 [facility] RAD CAT SCAN ??? HYSTERECTOMY, VAGINAL ??? IR BILIARY TUBE CHECK/CHANGE/REMOVE 06/03/2020 IR Biliary Tube Check/Change/Remove 06/03/2020 Jos Collins, DO [facility] INTERVENTIONL RAD ??? IR CHOLECYSTOSTOMY TUBE PLACEMENT 04/22/2020 IR Cholecystostomy Tube Placement 04/22/2020 Jos Collins, DO [facility] INTERVENTIONL RAD ??? IR DRAIN CHECK/CHANGE/REMOVE 05/19/2020 IR Drain Check/Change/Remove 05/19/2020 Jos Collins, DO [facility] INTERVENTIONL RAD ? ? PRG GI IMAGING INTRALUMINAL ESOPHAGUS-ILEUM W/I&R N/A 12/27/2021 VIDEO CAPSULE ENDOSCOPY performed by Wallace Heller MD at [facility] ENDOSCOPY ??? PRO COLONOSCOPY, DIAGNOSTIC N/A 09/12/2020 COLONOSCOPY, DIAGNOSTIC performed by Mane Avila MD at [facility] ENDOSCOPY ??? PRO LAP, CHOLECYSTECTOMY/GRAPH N/A 07/15/2020 LAPAROSCOPIC CHOLECYSTECTOMY WITH CHOLANGIOGRAM (WRVU 11.47) performed by Hong Rosenthal MD at [facility] MAIN OR ??? PRO UPPER GI ENDOSCOPY, BIOPSY N/A 09/12/2020 EGD WITH BIOPSY (WRVU 2.49) performed by Mane Avila MD at [facility] ENDOSCOPY ??? PRO UPPER GI ENDOSCOPY, DIAGNOSTIC N/A 05/03/2020 EGD, UPPER GI ENDOSCOPY performed by Brigitte Graf MD at [facility] ENDOSCOPY ALLERGIES: Patient has no known [...] tablet by mouth daily. (Patient taking differently: [id number] mg by mouth daily.) 90 tablet 3 [...] block-cancelled due to HTN. 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
--- OUTSIDE RECORDS SUMMARY | 2024-04-28 15:20 | XMS_ITS | Encounter Summary ---
[place] [address] Care Team Providers Care Sdet Name Role Phone Regis Muller MD Primary Care Provider [phone] Encounter Details Date Type Department Care Team (Latest Contact Info) Description 10/24/2021 12:55 PM EST Laboratory Appointment Lab [address] [address] Abnormal LFTs; Iron deficiency anemia, unspecified iron [...] PM EST Abnormal LFTs COMPREHENSIVE METABOLIC PANEL Routine 10/24/2021 12:41 PM EST Abnormal LFTs documented in this encounter Results * Differential, Automated (10/24/2021 12:41 PM EST) Neutrophil % 71.3 % [facility] Neutrophil Absolute 5.88 1.70 - 6.10 x10(3)/[facility] Lymph % 16.8 % [facility] Lymphocytes Abs 1.4 0.9 - 3.2 x10(3)/[facility] Monocyte % 6.8 % [facility] Monocyte Abs 0.6 0.3 - 0.9 x10(3)/[facility] Eos % 4.0 % [facility] Eosinophils Abs 0.3 0.0 - 0.4 x10(3)/[facility] Basophil % 0.7 % [facility] Baso Absolute 0.1 0.0 - 0.1 x10(3)/[facility] Immature Gran % 0.40 % [facility] Comment: Immature granulocytes(IG's)percentage and absolute count will include metamyelocytes, myelocytes, and promyelocytes. Blood smears from CBCs yielding IG's will be scanned manually for concordance. If this scan disagrees with the automated IG or if promyelocytes are noted, a manual differential will be performed. Immature Gran Absolute 0.03 0.00 - 0.04 x10(3)/[facility] Blood 10/24/2021 12:4 1 PM EST 10/24/2021 12:55 PM EST Narrative Resulting Agency Comment Spec In Lab Eamon Lange MD HEMATOLOGY ORDERABL ES [facility] [place] [address] * (ABNORMAL) Hemogram (10/24/2021 12:41 PM EST) White Blood Cell 8.2 4.0 - 9.5 x10(3)/mc L [facility] Red Blood Cell 3.84(L) 4.00 - 5.21 x10(6)/mc L [facility] Hemoglobin 8.7(L) 11.7 - 15.5 g/dL [facility] Hematocrit 29.1(L) 35.7 - 45.8 % [facility] Mean Cell Volume 75.8(L) 82.6 - 94.4 fL [facility] Mean Cell Hemoglobin 22.7(L) 27.1 - 32.0 pg [facility] Mean Cell Hemoglobin Concentration 29.9(L) 31.7 - 35.0 g/dL [facility] Platelet 298 145 - 357 x10(3)/mc L [facility] RDW Standard Deviation 69.1(H) 37.0 - 46.0 fL [facility] RDW coefficient of variation 26.1(H) 11.5 - 14.1 % [facility] Mean Platelet Volume 10.2 7.6 - 12.9 fL [facility] NRBC% auto 0.0 % [facility] NRBC Absolute 0.000 0.000 - 0.000 x10(3)/mc L [facility] Blood 10/24/2021 12:4 1 PM EST 10/24/2021 12:55 PM EST Narrative Resulting Agency Comment Spec In Lab Eamon Lange MD HEMATOLOGY ORDERABL ES Performing Organization Address City/State/[facility] Co de Phone Number [facility] [place] [address] * AMEENA (10/24/2021 12:41 PM EST) AMEENA Ab Screen Test ?Result ? Flag ??Unit ??RefValue Antinuclear Ab, HEp-2 ? <1:80 (Negative) ? <1:80 (Negative) ??Substrate, S ? ADDITIONAL INFORMATION --------- ?Method: Immunofluorescence using HEp-2 cellular substrate. ?Test Performed by: ?[facility] ?[address] [place] [address] ?Protein Specialist: Gavin Rodriguez M.D. Ph.D.; CLIA# [id number] [facility] Blood 10/24/2021 12:4 1 PM EST 10/24/2021 3:53 PM EST Narrative Resulting Agency Comment Spec In Lab Wallace Heller MD LAB SEND OUT JESSICA BLOCK Performing Organization Address City/[facility]/ZIP Co de Phone Number [facility] [place] [address] * Smooth Muscle Antibody (10/24/2021 12:41 PM EST) Sm Muscle Ab (DECEMBER) Negative Negative [facility] Comment: Negative: No further testing will be performed ADDITIONAL INFORMATION This test was developed and its performance characteristics determined by [facility] in a manner consistent with CLIA requirements. This test has not been cleared or approved by the U.S. Food and Drug Administration. Test Performed by: [facility] [place] [address] Protein Specialist: Gavin Rodriguez M.D. Ph.D.; CLIA# [id number] Blood 10/24/2021 12:4 1 PM EST 10/24/2021 3:53 PM EST Narrative Resulting Agency Comment Spec In Lab Wallace Heller MD LAB SEND OUT JESSICA BLOCK Performing Organization Address City/[facility]/ZIP Co de Phone Number [facility] [place] [address] * Mitochondrial Antibody, M2 (10/24/2021 12:41 PM EST) Mitochon Ab (DECEMBER) <0.1 <0.1 (Negative) U [facility] Comment: Test Performed by: [facility] [address] [place] [address] Protein Specialist: Gavin Rodriguez M.D. Ph.D.; CLIA# [id number] Blood 10/24/2021 12:4 1 PM EST 10/24/2021 3:53 PM EST Narrative Resulting Agency Comment Spec In Lab Wallace Heller MD LAB SEND OUT JESSICA BLOCK Performing Organization Address [facility]/ZIP Co de Phone Number [facility] [place] [address] * Tissue transglutaminase, IgA (10/24/2021 12:41 PM EST) Pathologist [facility] TTG IgA Ab 0.4 0.1 - 10.0 u/ml [facility] Comment: Negative = <7 U/mL Equivocal = 7-10 U/mL Positive = >10 U/mL Blood 10/24/2021 12:4 1 PM EST 10/25/2021 7:19 AM EST Narrative Resulting Agency Comment Spec In Lab Wallace Heller MD IMMUNOLOGY ORDERA BLES Performing Organization Address [facility] Co de Phone Number [facility] [place] [address] * (ABNORMAL) Immunoglobulins, Quantitative (10/24/2021 12:41 PM EST) Pathologist [facility] Immunoglobulin G 662(L) 700 - 1,600 mg/dL [facility] Comment: Pediatric Reference Intervals obtained from the Caliper Reference Interval project. http://www.sickkids.ca/caliperproject/index.html IgA 251 70 - 400 mg/dL [facility] IgM 140 40 - 230 mg/dL [facility] Blood 10/24/2021 12:4 1 PM EST 10/24/2021 12:55 PM EST Narrative Resulting Agency Comment Spec In Lab Wallace Heller MD CHEMISTRY ORDERAB LES Performing Organization Address [facility] Co de Phone Number [facility] [place] [address] * Hepatitis B Surface Antigen (10/24/2021 12:41 PM EST) Hepatitis B Surface Antigen Negative Negative [facility] Blood 10/24/2021 12:4 1 PM EST 10/24/2021 12:55 PM EST Narrative Resulting Agency Comment Spec In Lab Wallace Heller MD CHEMISTRY ORDERAB LES Performing Organization Address [facility] de Phone Number [facility] [place] [address] * Hepatitis B Surface Antibody (10/24/2021 12:41 PM EST) Hepatitis B Surface Antibody, Quantitative <3.5 IU/L [facility] Comment: HepB Surface Ab Quant: Unvaccinated: < 8.5 IU/L Vaccinated: > 11.5 IU/L Hepatitis B Surface Antibody Negative [facility] Comment: Patient is presumed to be not vaccinated or immune to HBV infection. Expected Results: Vaccinated: Positive Unvaccinated: Negative Blood 10/24/2021 12:4 1 PM EST 10/24/2021 12:55 PM EST Narrative Resulting Agency Comment Spec In Lab Wallace Heller MD CHEMISTRY ORDERAB LES Performing Organization Address [facility] Co de Phone Number [facility] [place] [address] * Hepatitis B Core Antibody, Total (10/24/2021 12:41 PM EST) Hepatitis B Core Antibody Negative Negative [facility] Blood 10/24/2021 12:4 1 PM EST 10/24/2021 12:55 PM EST Narrative Resulting Agency Comment Spec In Lab Wallace Heller MD CHEMISTRY ORDERAB LES Performing Organization Address City/[facility]/ZIP Co de Phone Number [facility] [place] [address] * Hepatitis C Antibody (10/24/2021 12:41 PM EST) Pathologist [facility] Hepatitis C Antibody Negative Negative [facility] Blood 10/24/2021 12:4 1 PM EST 10/24/2021 12:55 PM EST Narrative Resulting Agency Comment Spec In Lab Wallace Heller MD CHEMISTRY ORDERAB LES Performing Organization Address [facility] Co de Phone Number [facility] [place] [address] * (ABNORMAL) Comprehensive metabolic panel (non-fasting) (10/24/2021 12:41 PM EST) [facility] Glucose 129 65 - 199 mg/dL [facility] Comment:Diabetes: >=200 mg/d L plus symptoms Blood Urea Nitrogen 13 8 - 18 mg/dL [facility] Creatinine 0.77 0.70 - 1.20 mg/dL [facility] Sodium 141 135 - 145 mmol/L [facility] Potassium 3.7 3.5 - 5.0 mmol/L [facility] Comment: Please note: ??Patients with WBC >100,000 may have falsely elevated Potassium levels. ??For accurate Potassium quantification in these patients send serum separator tube (gold top) for subsequent determinations. ??Contact the Clinical Chemistry Laboratory if there are any questions. Chloride 107 98 - 107 mmol/L [facility] Carbon Dioxide 23 22 - 31 mmol/L [facility] Anion Gap 11 5 - 15 mmol/L [facility] Calcium 9.0 8.5 - 10.5 mg/dL [facility] Protein, Total 6.4 6.1 - 8.0 g/dL [facility] Albumin 3.7 3.2 - 5.2 g/dL [facility] Aspartate Aminotransferase 92(H) 0 - 30 unit/L [facility] Alanine Aminotransferase 65(H) 0 - 30 unit/L [facility] Alkaline Phosphatase 334(H) 35 - 105 unit/L [facility] Bilirubin, Total 0.8 0.2 - 1.3 mg/dL [facility] Est Glomerular Filtration Rate 72 >=60 mL/min/1. 73 m?? [facility] Comment: This patient? s estimated glomerular [...] Lab Wallace Heller MD CHEMISTRY ORDERAB LES [facility] [place] [address] * (ABNORMAL) Prothrombin Time (10/24/2021 12:41 PM EST) Prothrombin Time 13.4(H) 9.4 - 12.5 sec [facility] International Normalization Ratio 1.2 [facility] Comment: An INR <2.0 [...] Lab Wallace Heller MD HEMATOLOGY ORDERA BLES [facility] [place] [address] documented in this encounter Visit Diagnoses Diagnosis Abnormal LFTs Other abnormal blood chemistry Iron deficiency anemia, unspecified iron deficiency anemia type documented in this encounter Care Teams Sdet Relationship Specialty Start Date End Date Regis Muller MD [address] [place] [address] PCP - General Emergency Medicine 06/24/21 documented as of this encounter
--- OUTSIDE RECORDS SUMMARY | 2024-04-28 15:20 | XMS_ITS | Encounter Summary ---
[place] [address] Care Team Providers Care Body Shop Estimator Name Role Phone Regis Muller MD Primary Care Provider [phone] Reason for Referral * Consultation (Routine) - Denied Specialty Diagnoses / Procedures Referred By Contac t Referred To Contact [facility] Diagnoses Spinal stenosis, lumbar region, without neurogenic claudication Regis Muller MD [address] [place] [address] [facility] [place] [address] Referral ID Status Reason Start Date Expiration Date V isits Requested Visits Authorized [id number] Denied Consult, Test & Treat PCP Updated and/or Approved 12/31/2023 07/02/2024 6 0 Encounter Details Date Type Department Care Team (Latest Contact Info) Description 01/07/2024 Transcribe Orders eDH Incoming Referrals [phone] Regis Muller MD [address] [place], [place] [id number] Spinal stenosis, lumbar region, without neurogenic claudication [...] claudication documented in this encounter Care Teams Body Shop Estimator Relationship Specialty Start Date End Date Regis Muller MD [address] [place] [address] PCP - General Emergency Medicine 06/24/21 documented as of this encounter
--- OUTSIDE RECORDS SUMMARY | 2024-04-28 15:20 | XMS_ITS | Data Portability ---
Author Organization [place] - [facility], [facility] Address [place] [address] Assessment No assessment recorded. Plan of Treatment Reminders Order Date Submit Date Provider Last Modified By Organization Details Last Modified Time Details Appointments None recorded. Lab hemoglobin A1C, fingerstick 2023 024 [facility], [address] [place] [address], [address], 4 11:42:59 Referral spine center referral - 2nd time sending please send OV note when completed 2023 024 [email or web address] [facility], [address], [address], [place], [address], 4 15:03:58 interventio nal pain medicine specialist referral [email or web address] [facility], [address] [place], [address], 4 12:07:37 Procedures None recorded. Surgeries None recorded. Imaging None recorded. Medication Orders Jardiance 10 mg tablet 2023 024 [facility], [address] [place], [address], 4 15:02:52 Flonase Allergy Relief 50 mcg/actuati on nasal spray,suspe nsion 2023 024 [facility], [address] [place], [address], 15:22:09 Patient TargetsNo targets recorded. Patient Instructions Encounter Date Encounter Id Patient Instructions Last Modified By Organization Details Last Modified Time 08/30/2023 [id number] increase your glipizide to twice daily, add [...] Name Description Value Unit Range Abnormal Flag Note LastModifiedBy Organization Detail LastModifiedTime 08/30/19 24 08/30/2023 hemog lobin A1C, finge rstic k HGBA1C 11.6 % <5.7 Not Available [address], [address], 08/30/2023 11:27:17 12/25/19 24 12/25/2023 BASIC METAB OLIC PANEL calcium 9.0 mg/dL 8.5-10 .1 normal Not Available [address] [place], [address] 12/25/2023 12:39:42 12/25/19 24 12/25/2023 BASIC METAB OLIC PANEL glucose 319 mg/dL 74-106 high Not Available [facility] [address] [place], [address] 12/25/2023 12:39:42 12/25/19 24 12/25/2023 BASIC METAB OLIC PANEL BUN 21 mg/dL 7-18 high Not Available [facility] [address] [place], [address] 12/25/2023 12:39:42 12/25/19 24 12/25/2023 BASIC METAB OLIC PANEL creatinine 1.1 mg/dL 0.55-1 .02 high Not Available [address] [place], [address] 12/25/2023 12:39:42 12/25/19 24 12/25/2023 BASIC METAB OLIC PANEL estimated GFR 49.86 mL/min /1.73m 2 The eGFR is calcu lated from a serum creat inine using the CKD-E PI 2020 equat ion. Other varia bles requi red for the equat ion are gende r and age; this equat ion does not inclu de a race coeff icien t. This equat ion has simil ar overa ll perfo rmanc e to previ ous equat ions excep t value s may diffe r, in parti cular , in patie nts with highe r value s of eGFR and young er-ag ed adult s. Not Available [address] [place], [address] 12/25/2023 12:39:42 12/25/19 24 12/25/2023 BASIC METAB OLIC PANEL sodium 141 mmol/ L 136-14 5 normal Not Available [address] [place], [address] 12/25/2023 12:39:42 12/25/19 24 12/25/2023 BASIC METAB OLIC PANEL potassium 4.0 mmol/ L 3.5-5. 1 normal Not Available [address] [place], [address] 12/25/2023 12:39:42 12/25/19 24 12/25/2023 BASIC METAB OLIC PANEL chloride 105 mmol/ L 98-107 normal Not Available [address] [place], [address] 12/25/2023 12:39:42 12/25/19 24 12/25/2023 BASIC METAB OLIC PANEL CO2 27.3 mmol/ L 21.0-3 2.0 normal Not Available [address] [place], [address] 12/25/2023 12:39:42 12/25/19 24 12/25/2023 BASIC METAB OLIC PANEL anion gap 8.7 mmol/ L 3-11 normal Not Available [address] , [place], [address] 12/25/2023 12:39:42 12/25/19 24 12/25/2023 x-ray imagi ng repor t Patimckenzie t Name: Suzanna Mansfield Unit #: [id number] Loc: ER Jon ng Provid er: Tito Medina Accoun t #: [id number] Status : REG ER Primar y [...] this report in error, please notify us immedrosa steve at and return the origin al report to us at the addres s above. Thank- you. merari [facility] [address] , [place], [address] 12/25/2023 17:32:19 Result Notes None recorded. Problems Name Problem SNOMED Code Status Onset Date Resolution Date Notes Provider Name and Address Organization Details Recorded Time John james 67179623 Active 2009 exacerba nina by jacinta davis hypertmckenzie STEPHENS MD [address], [place], [address] , [facility] 4 22:34:00 Type 2 diabetes mellitus without complica tion 752605426 Active [address], [place], [address] , [facility] 4 22:33:52 Obesity 837708196 Active 2017 Mika Gerber [facility], [facility] 4 17:05:14 Aortic stenosis , non-rheu matic 571511517 Active 2017 severe, addresse d 03/2020 at time of acute cholecys titis. Initial balloon valvulop lasty to stabiliz e pt thru lap david, later Transcat h TAVT (pericar dial tissue) REGIS STEPHENS MD [address], [place], [address] , [facility] 4 22:34:13 Pre-surg hanna evaluati on Completed 201702/27/2018 01/29/20 18 - Comments only - Rossi BENTON - - Here for pre-op clearanc e for valeriy cataract surgery with Dr. Lubin at [facility] (right: 6/11; left: 02/25). She has poorly controll ed diabetes , with A1C of 9.[address] Lubin's office to ask if they have a cut-off under which they require pt's to have their A1Cs at and they do not. Discusse d increase d risk of complica tions with patient r/t her poor glucose control. However, given cataract surgery is low-risk , will clear her nonethel ess. Did encourag e her to start her victoza (she will wait until after the first eye is done next week). She does note her biggest fear is that, because she lives alone, if she has a serious reaction nobody will notice. Since she will be in [place] with company after her surgery, she agrees to use it for the first time there to help allay this concern. She will let us know immediat emma if she has any issues with it. She will see her PCP later this month for DM f/u. 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 8958456 Active [address], [place], [address] , [facility] 4 22:34:04 Low back pain 867982328 Active 2019 [facility] 4 17:05:07 Prosthet ic heart valve in situ 510743861 Active 2020 [facility] [place] [address], [place], [address] , [facility] 4 22:34:51 Paroxysm al atrial fibrilla tion 287190779 Active [address], [facility] [address] , [facility] 4 22:33:56 Hemorrha gic esophagi tis 49305085 Completed 202008/31/2023 Problem Code: K20.91; Problem Code Type: ICD-10; MD Radha [address], [place] [address] , [facility] 4 23:27:37 Diastoli c heart failure 906789272 Active increase d L ventric end diastoli c pressure , pulm htn MD Radha [address], [facility] [address] , [facility] 4 22:34:40 Rosacea 039620153 Active 2020 Mika Gerber [facility], [facility] 4 17:10:01 Wedge fracture of lumbar vertebra 872722963 Completed 08/30/2023 Problem Code: S32.020S ; Problem Code Type: ICD-10; MD Radha [address], [facility] [address] , [facility] 4 08:17:54 Cervical disc disorder 345562129 Active 2020 [facility] 4 17:09:39 Insomnia 756241332 Active 2020 secondar y to chronic back pain [facility] 4 17:07:28 Anemia 065021850 Completed 202008/31/2023 Problem Code: D64.9; Problem Code Type: ICD-10; MD [address], [place], [address] , [facility] 4 23:27:43 Spinal stenosis of lumbar region 16680284 Active 2020 Mika garcia, [facility] 4 17:06:44 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 21749893 Active 2020 REGIS STEPHENS MD [address], [place], [address] , [facility] 4 11:30:32 Non-scar ring alopecia 707753660 Completed 202110/24/2021 Problem Code: L65.9; Problem Code Type: ICD-10; Not Available [facility] 3 05:39:17 Pain of left shoulder joint 77988449785 086352 Active 2022 REGIS STEPHENS MD [address], [place], [address] , [facility] 4 22:35:07 Arthralg ia of the ankle and/or foot 474334885 Completed 201810/08/2020 Problem Code: M25.572; Problem Code Type: ICD-10; Not Available [facility] 3 05:39:25 Calculus of gallblad daniela and bile duct with cholecys titis 16095725723 4109 Completed 201905/23/2023 08/02/20 20 - Comments only - Reshma Baig MD - Patient had cholecys titis requirin g external drainage ports that is now resolved she is status post cholecys tectomy. She reports that overall she is doing better and is on the mend. Problem Code: K80.60; Problem Code Type: ICD-10; Not Available [facility] 3 05:39:26 Chronic pain 84120501 Completed 199804/24/2017 Problem Code: 338.29; Problem Code Type: ICD-9; Not Available [facility] 3 05:39:27 Liver function tests outside referenc e range 275352598 Completed 202002/07/2021 Problem Code: R94.5; Problem Code Type: ICD-10; Not Available [facility] 3 05:39:28 Epigastr ic pain 32912364 Completed 201910/08/2020 Problem Code: R10.13; Problem Code Type: ICD-10; Not Available [facility] 3 05:39:30 Dysuria 25854852 Completed 202110/17/2021 Problem Code: R30.0; Problem Code Type: ICD-10; Not Available [facility] 3 05:39:30 Blood chemistr y outside referenc e range 103971340 Completed 200704/24/2017 Problem Code: R79.89; Problem Code Type: ICD-10; Not Available [facility] 3 05:39:31 Liver function tests outside referenc e range 543529955 Completed 200705/23/2023 Problem Code: 794.8; Problem Code Type: ICD-9; Not Available [facility] 3 05:39:31 Kaia parsons 62647742 Completed 201910/08/2020 Problem Code: L85.3; Problem Code Type: ICD-10; Not Available [facility] 3 05:39:32 Diarrhea 05281581 Completed 201805/22/2019 Problem Code: R19.7; Problem Code Type: ICD-10; Not Available [facility] 3 05:39:32 Paresthe karissa 04862590 Completed 202204/26/2023 Problem Code: R20.2; Problem Code Type: ICD-10; Not Available [facility] 3 05:39:33 Type 2 diabetes mellitus 70163538 Completed 200704/24/2017 Not Available [facility] 3 05:39:34 Osteoart hritis 219574834 Completed 200104/24/2017 Not Available [facility] 3 05:39:34 Pain of right knee joint 51906562493 4100 Completed 201504/24/2017 Problem Code: M25.561; Problem Code Type: ICD-10; Not Available [facility] 3 05:39:34 Hyperten sive disorder 09900354 Completed 200905/23/2023 Not Available [facility] 3 05:39:34 Edema 243461491 Completed 202002/23/2021 Problem Code: R60.9; Problem Code Type: ICD-10; Not Available [facility] 3 05:39:35 Pleuriti c pain 6147638 Completed 201805/22/2019 Problem Code: R07.81; Problem Code Type: ICD-10; Not Available [facility] 3 05:39:35 Localize d eruption of skin 779684193 Completed 201811/29/2023 06/08/20 23 - Comments only - Tammy Jonathan [employer] - Patient develope d a rash shortly after starting Januvia. I have asked her to stop the medicati on (she stopped yesterda y). I am not confiden t that Januvia is the cause of the rash however consider ing the timeline it is reasonab le. The rash currentl y does not have characte ristic features of bullous pemphigo id, Summers- Norberto syndrome or epiderma l necrolys is - postmark eting reports of rashes associat ed with Januvia. At this time there are no signs of infectio n. I do think it is reasonab le to treat lesions with triamcin olone twice daily. I have asked patient to follow-u p with our office on Sunday for further evaluati on of the rash as well as planning for diabetic care. Problem Code: R21; Problem Code Type: ICD-10; [facility] [place] [facility]. 4 17:09:27 Elevated blood-pr essure reading without diagnosi s of hyperten lyndon 714814863 Completed 202110/11/2022 Problem Code: R03.0; Problem Code Type: ICD-10; Not Available [facility] 3 05:39:37 Gastroin testinal tract excision Completed 201906/20/2021 Problem Code: Z90.49; Problem Code Type: ICD-10; Not Available [facility] 3 05:39:38 Pain in thoracic spine 906670978 Completed 202010/17/2021 Problem Code: M54.6; Problem Code Type: ICD-10; Not Available [facility] 3 05:39:39 Nausea 201354762 Completed 202002/07/2021 Problem Code: R11.0; Problem Code Type: ICD-10; Not Available [facility] 3 05:39:39 Pain in thoracic spine 093617442 Completed 202010/17/2021 Problem Code: M54.9; Problem Code Type: ICD-10; Not Available [facility] 3 05:39:40 Hypergly cemia due to type 2 diabetes mellitus 57233107017 9109 Completed 201505/23/2023 Problem Code: E11.65; Problem Code Type: ICD-10; Not Available [facility] 3 05:39:40 Heart murmur 98752456 Completed 201610/08/2020 Problem Code: R01.1; Problem Code Type: ICD-10; Not Available [facility] 3 05:39:40 Rhinitis 05671875 Active 2023 REGIS STEPHENS MD [address], [place], [address] , [facility] 4 15:20:14 Problem Notes None recorded. Procedures Surgical History None recorded. Imaging Results Imaging Date Name Status LastModified by Organiz ation Details LastModified Time 12/25/2023 x-ray imaging report completed [facility] [address] , [place], [address] 12/25/2023 17:32:19 Procedure Notes None recorded. Medical Equipment None Reported. Allergies Allergen ID Allergen Name Allergen Category Reaction Reaction Severity Criticality Documentation Date Start Date Code Code System Note Provider Name and Address Organization Details Recorded Time 33547 Dilt medicatio n rash mild Not available 07/06/20232011 98954 8 RxNorm Skin Rash Aller gyRea ction : 'Skin Rash' ; Not Available [facility] 3 16:11:33 41591 metformin hydrochlo ride medicatio n vomiting moderate Not available 07/06/20232020 91908 3 RxNorm vomit ing, diarr hea Aller gyRea ction : 'vomi ting, diarr hea'; Not Available [facility] 3 16:11:33 63800 codeine medicatio n other severe Not available 11/29/20232001 2670 Rx[facility] 4 17:12:00 75429 epinephri ne medicatio n vomiting mild Not available 11/29/20232001 3992 [facility] 4 17:12:45 65868 lisinopri l medicatio n cough rash mild mild Not available 11/29/20232010 47792 [facility] 4 17:13:17 62062 tramadol medicatio n other moderate Not available 11/29/20232020 60200 RxNorm over sedat ion at low doses [facility] 4 17:13:44 Medications Name Sig Start Date [...] ous solution 55 units daily 2015 active [facility] Not Available Not Available [...] times a day before meals 11/07 completed [facility] Not Available Not Available Not Available calcitoni n (salmon) 200 unit/actu ation nasal spray Binger 1 spray into one nostril once a [...] Available No t Available Diltiazem HCl CR 180 mg capsule,e [...] Available Not Available Not Available gabapenti n 100 mg capsule Take 1 capsule 3 times a day by oral route. 2023 active Not Available Not Available Not Avai lable lovastati n 20 mg tablet 1 qd [...] Not Available Not Available Not Avai lable cyclobenz aprine 5 mg tablet TAKE ONE TABLET BY MOUTH AT BEDTIME NEEDED FOR MUSCLE SPASM active Not Available Not Available No t Available iron 325 mg (65 mg iron) tablet [...] Available Not Available No t Available FreeStyle Montour Lite 1 bid 08/09 completed Not Available [...] Address Organization Details Last Updated DateTime 4 155.498 8 cm 34.7 kg/m2 16537.5 9 g 97.2 [degF] 98 % 98 % 78 /min 122 mm[Hg] 74 mm[Hg] BARRY RAMIREZ MA [place] [facility]. 4 11:10:19 Date Recorded Body height Body mass index (BMI) Body weight Body temperature Oxygen saturation Oxygen saturation in Arterial blood by Pulse oximetry Heart rate Systolic blood pressure Diastolic blood pressure Provider Name and Address Organization Details Last Updated DateTime 4 155.5 cm 34.7 kg/m2 02101.5 9 g 97.4 [degF] 97 % 97 % 74 /min 130 mm[Hg] 80 mm[Hg] BARRY RAMIREZ MA [facility] 4 14:51:37 Social History None recorded. Functional Status None recorded. Mental Status None recorded. Family History Nothing Reported Notes:*Problem: Strong famil y hx CA (colon, uterine, leukemia), heart disease, diabetes. No ETOH. Depression in mom. Medical History No medical history recorded. Gynecological HistoryNo gynecological history recorded. Obstetrics History GPAL:G 0 P 0 0 0 0 Immunizations Vaccine Type Date Status Provider Name and Address Organization Details Recorded Time Td(adult) unspecified formulation 06/22/1999 completed Not Available [facility] 07/06/2023 06:08:58 COVID-19, mRNA, LNP-S, PF, 100 mcg/0.5mL dose or 50 mcg/0.25mL dose 10/21/2020 completed Not Available [facility] 07/06/2023 06:08:58 COVID-19, mRNA, LNP-S, PF, 100 mcg/0.5mL dose or 50 mcg/0.25mL dose 11/19/2020 completed Not Available [facility] 07/06/2023 06:08:58 COVID-19, mRNA, LNP-S, PF, 100 mcg/0.5mL dose or 50 mcg/0.25mL dose 08/08/2021 completed Not Available [facility] 07/06/2023 06:08:58 pneumococcal polysaccharide PPV23 04/12/2006 completed Not Available [facility] 2022 06:08:58 Past Encounters Encounter ID Performer Location Encounter Start Date Encounter Closed Date Diagnosis/Indication Diagnosis SNOMED-CT Code Diagnosis ICD10 Code [id number] REGIS STEPHENS MD [address] [address] 08/30/2023 10:44:46 08/30/2023 11:45:39 Type 2 diabetes mellitus without complication 809734414 E11.9 Low back pain 633703835 M54.50 Paroxysmal atrial fibrillation 121133086 I48.0 [id number] REGIS STEPHENS MD [facility] [address] [place] [address] 12/26/2023 14:14:19 12/26/2023 15:30:52 Spinal stenosis of lumbar region 36514064 M48.061 Rhinitis 66711599 J00 Health Concerns Section Related Observation LastModified by Organization Detai ls LastModified Time None Recorded Concern Status LastModified by Organization Details LastModified Time None Recorded Advance Directives Directive None Recorded Payers Encounter Date Sequence Insurance Name Policy Number Policy Calloway Covered Member ID Calloway Member ID Guarantor Name 08/30/2023 1 [place] [employer] Shannan Moody [id number] Shannan Moody 12/26/2023 1 [place] [employer] Shannan Moody [id number] Shannan Moody Notes Date Note Type Note Provider Name and Address Organization Details Recorded Time 08/30/2023 text/html HPI Notes: Sharri odonnell here for follow-up for diabetes hypertension back [...] referred down to the spine clinic at [facility] last year but blood pressure was high because of whitecoat issues and they refused to proceed. MD [address], [place], [address], [facility], [facility]. 08/31/2023 23:28:14 12/26/2023 text/html HPI Notes: Sharri odonnell here for ER follow-up. Once again back pain getting very difficult for her. Seen if and does not do much. Has been careful with anti-inflammatorie s. Lidocaine patches do not do much. Even 12.5 mg doses of tramadol she does not tolerate at all. Has been told by pain clinic in [facility] in the past that there is not much else they can do for her. Classic spinal stenosis symptoms. Pain low back, positive shopping cart sign. No significant sciatica. No weakness numbness bowel or bladder changes. REGIS STEPHENS MD [address], [place], [address], [facility]. 12/30/2023 21:00:21 OBGyn Episode No OBEpisode recorded.
--- OUTSIDE RECORDS SUMMARY | 2024-04-28 15:20 | XMS_ITS | Encounter Summary ---
Author Organization [facility] Address [address] [place] [address] Care Team Providers Care General Utility Worker Name Role Phone Unavailable Primary Care Provider Unavailabl e Encounter Details Date Type Department Care Team (Late st Contact Info) Description 05/21/2002 Results Only [facility] conversion [address] [place] [address] Garo Barraza FNP [address] [place], [place] [id number] Social History Tobacco Use Types Packs/Day Years [...] ? SHANNAN MOODY ? Accession #: ? [id number] : ? 1940 (Age: 61) ??F ?Collect Date: ? 05/21/2002 Location: ? [facility] ? Receive Date: ? 05/23/2002 Provider: ?GARO BARRAZA TUBULAR SPLITTING MACHINE TENDER Copy to: ? Specimen/Source: ?Conventional Pap Test, [...] Garo [facility] ORDERABLES Performing Organization Address City/State/[facility] Co de Phone Number KAY IZQUIERDO [address] [place] [address] documented in this encounter Visit Diagnoses Not on filedocumented in this encounter
--- OUTSIDE RECORDS SUMMARY | 2024-04-28 15:20 | XMS_ITS | Encounter Summary ---
Author Organization [facility] Address [facility] [address] Care Team Providers Care Motor Checker Name Role Phone Regis Muller MD Primary Care Provider [phone] Encounter Details Date Type Department Care Team (Late st Contact Info) Description 12/27/2021 7:28 AM EDT - 12/27/2021 6:49 PM EDT Hospital Encounter [place] [address] Wallace Heller MD [facility] [place] [address] Discharge Disposition: Home Social History Tobacco Use [...] Brand, 250.02. 1 each 0 12/02/2013 Lancets [facility] Use twice daily or as needed. 200 [...] complication. Informed Consent signed by patient (or security representative). documented in this encounter Plan of Treatment Not on file documented as of this encounter Procedures Procedure Name Priority Date/Time Associated Diagnosis Comments VIDEO CAPSULE ENDOSCOPY Routine 12/27/2021 8:58 AM EDT [facility] Intraluminal Esophagus-Ileum W/I&R (68914) 12/27/2021 8:00 AM EDT Iron deficiency anemia, unspecified iron deficiency anemia type documented in this encounter Results * VIDEO CAPSULE ENDOSCOPY (12/27/2021 8:58 AM EDT) [facility] VIDEO CAPSULE ENDOSCOPY [facility] Endoscopy Procedure Date: 12/27/2021 8:58 AM ? Patient Name: Shannan Moody ? N: [id number] ? Date of : 1940 ? Age: 81 ? Order #: [id number] ? Instrument Name: ? Procedure: ? Video [...] on filedocumented in this encounter Care Teams Motor Checker Relationship Specialty Start Date End Date Regis Muller MD [address] [place] [address] PCP - General Emergency Medicine 06/24/21 documented as of this encounter
--- OUTSIDE RECORDS SUMMARY | 2024-04-28 15:20 | XMS_ITS | Encounter Summary ---
[place] [address] Care Team Providers Care Administrative Manager Name Role Phone Regis Muller MD Primary Care Provider [phone] Encounter Details Date Type Department Care Team (Late st Contact Info) Description 12/27/2021 Telephone [facility] [place] [address] Koki Vincent RN Social History Tobacco Use [...] AM EDT Contact made with patient or housing management representative as identified in contacts 1. Patient instructed to arrive at 1000 on 12/30/21 with their public transit bus driver for their cluneal nerve block procedure. [...] the patient has been directed to the [employer] hotline for testing prior to their procedure. (route telephone note to: [facility] Public Health covid 19 nurse triage with [...] on filedocumented in this encounter Care Teams Administrative Manager Relationship Specialty Start Date End Date Regis Muller MD [address] [place] [address] PCP - General Emergency Medicine 06/24/21 documented as of this encounter
--- OUTSIDE RECORDS SUMMARY | 2024-04-28 15:20 | XMS_ITS | Encounter Summary ---
Author Organization [facility] Address [facility] [place] [address] Care Team Providers Care Auto Tire Recapper Name Role Phone Regis Muller MD Primary Care Provider [phone] Reason for Visit * Consultation (Routine) - Closed Specialty Diagnoses / Procedures Referred By Malini carlson Referred To Contact Gastroenterology Diagnoses Anemia, unspecified Regis Muller MD [address] [place] [address] [facility] [address] [place] [address] Referral ID Status Reason Start Date Expiration Date V isits Requested Visits Authorized [id number] Closed Consult, Test & Treat Connection Center PCP Updated and/or Approved 08/11/2021 08/11/2022 12 12 Encounter Details Date Type Department Care Team (Late st Contact Info) Description 10/24/2021 11:00 AM EST Office [place] [address] Eamon Lange MD [facility] [place] [address] Abnormal LFTs; Iron deficiency anemia, [...] GI bleeding when she was admitted in [facility] with symptomatic anemia requiring transfusion (records not [...] anisocytosis). No recent repeat iron studies at [facility] now remain black on oral iron. Noting [...] DRAINAGE 04/28/2020 CT Guided Drain Peritoneal 04/28/2020 [facility] RAD CAT SCAN ??? HYSTERECTOMY, VAGINAL ??? IR BILIARY TUBE CHECK/CHANGE/REMOVE 06/03/2020 IR Biliary Tube Check/Change/Remove 06/03/2020 Jos Collins P, DO [facility] INTERVENTIONL RAD ??? IR CHOLECYSTOSTOMY TUBE PLACEMENT 04/22/2020 IR Cholecystostomy Tube Placement 04/22/2020 Jos Collins P, DO [facility] INTERVENTIONL RAD ??? IR DRAIN CHECK/CHANGE/REMOVE 05/19/2020 IR Drain Check/Change/Remove 05/19/2020 Jos Collins P, DO [facility] INTERVENTIONL RAD ??? PRO COLONOSCOPY, DIAGNOSTIC N/A 09/12/2020 COLONOSCOPY, DIAGNOSTIC performed by Mane Avila MD at [facility] ENDOSCOPY ??? PRO LAP, CHOLECYSTECTOMY/GRAPH N/A 07/15/2020 LAPAROSCOPIC CHOLECYSTECTOMY WITH CHOLANGIOGRAM (WRVU 11.47) performed by oHng Rosenthal MD at [facility] MAIN OR ??? PRO UPPER GI ENDOSCOPY, BIOPSY N/A 09/12/2020 EGD WITH BIOPSY (WRVU 2.49) performed by Mane Avila MD at [facility] ENDOSCOPY ??? 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 (Patient taking differently: Iicq270 mg by mouth daily.) 90 tablet 3 [...] ?- Await pathology results. ?- Colonoscopy today [place] (08/2020): Findings: ?Hemorrhoids were found on perianal [...] Dr. Heller. Eamon Lange MD PGY-5, Gastroenterology [address] [place] [address] P: [phone] F: [phone] CC Regis Muller MD [address] [place] [address] CC Harris Castillo MD * Wallace Heller [...] documented. Wallace Heller MD Gastroenterology and Hepatology [facility] documented in this encounter Plan of Treatment Scheduled Orders Name Type Priority Associated Diagnoses Orde r Schedule ENDOSCOPY CASE REQUEST: VIDEO CAPSULE ENDOSCOPY Procedures Routine Iron deficiency anemia, unspecified iron deficiency anemia type Ordered: 10/24/2021 documented as of this encounter Results * (ABNORMAL) Prothrombin Time (10/24/2021 12:41 PM EST) Prothrombin Time 13.4(H) 9.4 - 12.5 sec [facility] International Normalization Ratio 1.2 [facility] Comment: An INR <2.0 [...] Lab Wallace Heller MD HEMATOLOGY ORDERA BLES [facility] [place] [address] * (ABNORMAL) Comprehensive metabolic panel (non-fasting) (10/24/2021 12:41 PM EST) Glucose 129 65 - 199 mg/dL [facility] Comment:Diabetes: >=200 mg/d L plus symptoms Blood Urea Nitrogen 13 8 - 18 mg/dL [facility] Creatinine 0.77 0.70 - 1.20 mg/dL [facility] Sodium 141 135 - 145 mmol/L [facility] Potassium 3.7 3.5 - 5.0 mmol/L [facility] Comment: Please note: ??Patients with WBC >100,000 may have falsely elevated Potassium levels. ??For accurate Potassium quantification in these patients send serum separator tube (gold top) for subsequent determinations. ??Contact the Clinical Chemistry Laboratory if there are any questions. Chloride 107 98 - 107 mmol/L [facility] Carbon Dioxide 23 22 - 31 mmol/L [facility] Anion Gap 11 5 - 15 mmol/L [facility] Calcium 9.0 8.5 - 10.5 mg/dL [facility] Protein, Total 6.4 6.1 - 8.0 g/dL [facility] Albumin 3.7 3.2 - 5.2 g/dL [facility] Aspartate Aminotransferase 92(H) 0 - 30 unit/L [facility] Alanine Aminotransferase 65(H) 0 - 30 unit/L [facility] Alkaline Phosphatase 334(H) 35 - 105 unit/L [facility] Bilirubin, Total 0.8 0.2 - 1.3 mg/dL [facility] Est Glomerular Filtration Rate 72 >=60 mL/min/1. 73 m?? [facility] Comment: This patient? s [...] MD CHEMISTRY ORDERAB LES Performing Organization Address [facility] Co de Phone Number [facility] [place] [address] * Hepatitis C Antibody (10/24/2021 12:41 PM EST) Hepatitis C Antibody Negative Negative [facility] Blood 10/24/2021 12:4 1 PM EST 10/24/2021 12:55 PM EST Narrative Resulting Agency Comment Spec In Lab Wallace Heller MD CHEMISTRY ORDERAB LES Performing Organization Address [facility] Co de Phone Number [facility] [place] [address] * Hepatitis B Core Antibody, Total (10/24/2021 12:41 PM EST) Hepatitis B Core Antibody Negative Negative [facility] Blood 10/24/2021 12:4 1 PM EST 10/24/2021 12:55 PM EST Narrative Resulting Agency Comment Spec In Lab Wallace Heller MD CHEMISTRY ORDERAB LES Performing Organization Address [facility] Co de Phone Number [facility] [place] [address] * Hepatitis B Surface Antibody (10/24/2021 12:41 PM EST) Hepatitis B Surface Antibody, Quantitative <3.5 IU/L [facility] Comment: HepB Surface Ab Quant: Unvaccinated: < 8.5 IU/L Vaccinated: > 11.5 IU/L Hepatitis B Surface Antibody Negative [facility] Comment: Patient is presumed to be not vaccinated or immune to HBV infection. Expected Results: Vaccinated: Positive Unvaccinated: Negative Blood 10/24/2021 12:4 1 PM EST 10/24/2021 12:55 PM EST Narrative Resulting Agency Comment Spec In Lab Wallace Heller MD CHEMISTRY ORDERAB LES Performing Organization Address City/[facility]/ZIP Co de Phone Number [facility] [place] [address] * Hepatitis B Surface Antigen (10/24/2021 12:41 PM EST) Hepatitis B Surface Antigen Negative Negative [facility] Blood 10/24/2021 12:4 1 PM EST 10/24/2021 12:55 PM EST Narrative Resulting Agency Comment Spec In Lab Wallace Heller MD CHEMISTRY ORDERAB LES Performing Organization Address [facility] Co de Phone Number [facility] [place] [address] * (ABNORMAL) Immunoglobulins, Quantitative (10/24/2021 12:41 PM EST) Immunoglobulin G 662(L) 700 - 1,600 mg/dL [facility] Comment: Pediatric Reference Intervals obtained from the Caliper Reference Interval project. http://www.sickkids.ca/caliperproject/index.html IgA 251 70 - 400 mg/dL [facility] IgM 140 40 - 230 mg/dL [facility] Blood 10/24/2021 12:4 1 PM EST 10/24/2021 12:55 PM EST Narrative Resulting Agency Comment Spec In Lab Wallace Heller MD CHEMISTRY ORDERAB LES Performing Organization Address City/[facility]/ZIP Co de Phone Number [facility] [place] [address] * Tissue transglutaminase, IgA (10/24/2021 12:41 PM EST) TTG IgA Ab 0.4 0.1 - 10.0 u/ml [facility] Comment: Negative = <7 U/mL Equivocal = 7-10 U/mL Positive = >10 U/mL Blood 10/24/2021 12:4 1 PM EST 10/25/2021 7:19 AM EST Narrative Resulting Agency Comment Spec In Lab Wallace Heller MD IMMUNOLOGY ORDERA BLES Performing Organization Address [facility] Co de Phone Number [facility] [place] [address] * Mitochondrial Antibody, M2 (10/24/2021 12:41 PM EST) Mitochon Ab (DECEMBER) <0.1 <0.1 (Negative) U [facility] Comment: Test Performed by: [facility] [address] [place] [address] Clerical Car Checker: Gavin Rodriguez M.D. Ph.D.; CLIA# [id number] Blood 10/24/2021 12:4 1 PM EST 10/24/2021 3:53 PM EST Narrative Resulting Agency Comment Spec In Lab Wallace Heller MD LAB SEND OUT JESSICA BLOCK Performing Organization Address [facility] Co de Phone Number [facility] [place] [address] * Smooth Muscle Antibody (10/24/2021 12:41 PM EST) Sm Muscle Ab (DECEMBER) Negative Negative [facility] Comment: Negative: No further testing will be performed ADDITIONAL INFORMATION This test was developed and its performance characteristics determined by [facility] in a manner consistent with CLIA requirements. This test has not been cleared or approved by the U.S. Food and Drug Administration. Test Performed by: [facility] [address] [place] [address] Clerical Car Checker: Gavin Rodriguez M.D. Ph.D.; CLIA# [id number] Blood 10/24/2021 12:4 1 PM EST 10/24/2021 3:53 PM EST Narrative Resulting Agency Comment Spec In Lab Wallace Heller MD LAB SEND OUT JESSICA BLOCK [facility] [place] [address] * AMEENA (10/24/2021 12:41 PM EST) AMEENA Ab Screen Test ?Result ? Flag ??Unit ??RefValue Antinuclear Ab, HEp-2 ? <1:80 (Negative) ? <1:80 (Negative) ??Substrate, S ? ADDITIONAL INFORMATION --------- ?Method: Immunofluorescence using HEp-2 cellular substrate. ?Test Performed by: ?[facility] ?[address] [id number] ?Clerical Car Checker: Gavin Rodriguez M.D. Ph.D.; CLIA# [id number] [facility] Blood 10/24/2021 12:4 1 PM EST 10/24/2021 3:53 PM EST Narrative Resulting Agency Comment Spec In Lab Wallace Heller MD LAB SEND OUT JESSICA Jang Organization Address City/State/ZIP Co de Phone Number [facility] [place] [address] documented in this encounter Visit Diagnoses Diagnosis Abnormal LFTs Other abnormal blood chemistry Iron deficiency anemia, unspecified iron deficiency anemia type documented in this encounter Care Teams Auto Tire Recapper Relationship Specialty Start Date End Date Regis Muller MD [address] [place] [address] PCP - General Emergency Medicine 06/24/21 documented as of this encounter
--- OUTSIDE RECORDS SUMMARY | 2024-04-28 15:20 | XMS_ITS | Encounter Summary ---
Author Organization [facility] Address [facility] [place] [address] Care Team Providers Care Roving Teller Name Role Phone Regis Muller MD Primary Care Provider [phone] Reason for Visit * Reason Comments Back Pain New patient / team * Consultation (Routine) - Closed Specialty Diagnoses / Procedures Referred By Contac t Referred To Contact Pain and Spine Center Diagnoses Spinal stenosis, lumbar region, without neurogenic claudication Pain- low back pain/ Lumbar stenosis/ MRI L 06/14/21 @ [facility]/ ? injection Regis Muller MD [address] [place] [address] [facility] [place] [address] Referral ID Status Reason Start Date Expiration Date V isits Requested Visits Authorized [id number] Closed Consult, Test & Treat 10/22/2021 10/22/2022 12 12 Encounter Details Date Type Department Care Team (Late st Contact Info) Description 12/12/2021 8:00 AM EDT Office Visit [place] [address] [facility] [place] [place] [address] [facility] [place] [address] Cluneal neuropathy; Spinal stenosis of lumbar region [...] been seen in the Pain Clinic at [facility]. No notes are available at the time [...] 3 weeks after procedure. Kia Reno MD Sandblast Carver of Anesthesiology [facility] [address] [address] / [facility] * Michael Herbert MD - 12/12/2021 8:00 AM EDT Images from the original note were not included. [facility] Initial Consultation Note Date of visit: 12/12/21 : 1940 Consulting Physician: Seeing at the request of Regis Muller MD [address] [place] [address]. Chief Complaint: Back pain R>L History of Present Illness: Shannan Moody is an 81 year old female with a history of DM type 2 (A1C - 7.1), HTN, severe s/p balloon valvuloplasty, CAD s/p PCI, pAFib and anemia requiring multiple transfusions presenting for evaluation of low back pain. She has been followed by a pain clinic in [place] but was referred to due to complicated [...] information in the [place] [facility] including relevant provider notes, laboratory work, and [...] DRAINAGE 04/28/2020 CT Guided Drain Peritoneal 04/28/2020 [facility] RAD CAT SCAN ??? HYSTERECTOMY, VAGINAL ??? IR BILIARY TUBE CHECK/CHANGE/REMOVE 06/03/2020 IR Biliary Tube Check/Change/Remove 06/03/2020 Jos Collins, DO [facility] INTERVENTIONL RAD ??? IR CHOLECYSTOSTOMY TUBE PLACEMENT 04/22/2020 IR Cholecystostomy Tube Placement 04/22/2020 Jos Collins, DO [facility] INTERVENTIONL RAD ??? IR DRAIN CHECK/CHANGE/REMOVE 05/19/2020 IR Drain Check/Change/Remove 05/19/2020 Jos Collins, DO [facility] INTERVENTIONL RAD ??? PRO COLONOSCOPY, DIAGNOSTIC N/A 09/12/2020 COLONOSCOPY, DIAGNOSTIC performed by Mane Avila MD at [facility] ENDOSCOPY ??? PRO LAP, CHOLECYSTECTOMY/GRAPH N/A 07/15/2020 LAPAROSCOPIC CHOLECYSTECTOMY WITH CHOLANGIOGRAM (WRVU 11.47) performed by Hong Rosenthal MD at [facility] MAIN OR ??? PRO UPPER GI ENDOSCOPY, BIOPSY N/A 09/12/2020 EGD WITH BIOPSY (WRVU 2.49) performed by Mane Avila MD at [facility] ENDOSCOPY ??? PRO UPPER GI ENDOSCOPY, DIAGNOSTIC N/A 05/03/2020 EGD, UPPER GI ENDOSCOPY performed by Brigitte Graf MD at [facility] ENDOSCOPY Medications: Medications were reconciled and [...] 400 each, Rfl: 3 ??? Blood-Glucose Meter [facility], One Touch Ultra Brand, 250.02., Disp: 1 [...] care. Michael Herbert MD Pain Medicine Fellow [address] [address] / [facility] Assessment and plan discussed with the attending physician Dr. Reno. CC: Regis Muller MD [address] [address] I have seen and examined the patient and reviewed the fellow's above history and I agree with the details as written. The assessment and plan were formulated in discussion with me and I agree with them as documented. Please also see Attending Note. Kia Reno MD [facility] [address] [address] / [facility] documented in this encounter Plan of [...] who have questions please contact the health acute care nurse practitioner that requested your imaging first. ? Electronically signed by: Gerardo Esparza MD, [facility] ([phone]), at 12/12/2021 10:32 AM Narrative 12/12/2021 10:32 AM EDT EXAMINATION: XR [...] patients who have questions please contactthe health acute care nurse practitioner that requested your imaging first. Electronically signed by: Gerardo Esparza MD, [facility]([phone]), at 12/12/2021 10:32 AM Kia Reno MD IMG DX ORDERABLES documented in this encounter Visit Diagnoses Diagnosis Cluneal neuropathy Spinal stenosis of lumbar region without neurogenic claudication Spinal stenosis, lumbar region, without neurogenic claudication Spinal stenosis of lumbar region without neurogenic claudication Spinal stenosis, lumbar region, without neurogenic claudication documented in this encounter Care Teams Roving Teller Relationship Specialty Start Date End Date Regis Muller MD [address] [place] [address] PCP - General Emergency Medicine 06/24/21 documented as of this encounter
--- OUTSIDE RECORDS SUMMARY | 2024-04-28 15:20 | XMS_ITS | Encounter Summary ---
Author Organization [facility] Address [facility] [place] [address] Care Team Providers Care Microwave Engineer Name Role Phone Regis Muller MD Primary Care Provider [phone] Encounter Details Date Type Department Care Team (Latest Contact Info) Description 12/12/2021 9:48 AM EDT - 12/12/2021 11:59 PM EDT Hospital Encounter XRay at [address] [place] [address] Kia Reno MD [facility] [place] [address] Spinal stenosis of lumbar region without neurogenic [...] Brand, 250.02. 1 each 0 12/02/2013 [facility] Use twice daily [...] who have questions please contact the health foster care case manager that requested your imaging first. ? Electronically signed by: Gerardo Esparza MD, [facility] ([phone]), at 12/12/2021 10:32 AM Narrative 12/12/2021 10:32 [...] patients who have questions please contactthe health foster care case manager that requested your imaging first. Kia Reno MD IMG DX ORDERABLES documented in this encounter Visit Diagnoses Diagnosis Spinal stenosis of lumbar region without neurogenic claudication Spinal stenosis, lumbar region, without neurogenic claudication documented in this encounter Care Teams Microwave Engineer Relationship Specialty Start Date End Date Regis Muller MD [address] [place] [address] PCP - General Emergency Medicine 06/24/21 documented as of this encounter
--- OUTSIDE RECORDS SUMMARY | 2024-04-28 15:20 | XMS_ITS | Encounter Summary ---
Author Organization [facility] [address] Care Team Providers Care Choral Director Name Role Phone Regis Muller MD Primary Care Provider [phone] Reason for Referral * Consultation (Routine) - Closed Specialty Diagnoses / Procedures Referred By Contac t Referred To Contact Pain and Spine Center Diagnoses Spinal stenosis, lumbar region, without neurogenic claudication Pain- low back pain/ Lumbar stenosis/ MRI L 06/14/21 @ [facility]/ ? injection Regis Muller MD [address] [place] [address] [facility] [place] [address] Referral ID Status Reason Start Date Expiration Date V isits Requested Visits Authorized [id number] Closed Consult, Test & Treat 10/22/2021 10/22/2022 12 12 Encounter Details Date Type Department Care Team (Latest Contact Info) Description 10/22/2021 [place] [address] Regis Muller MD [address] [place] [address] Spinal stenosis, lumbar region, without [...] claudication documented in this encounter Care Teams Choral Director Relationship Specialty Start Date End Date Regis Muller MD [address] [place] [address] PCP - General Emergency Medicine 06/24/21 documented as of this encounter
--- OUTSIDE RECORDS SUMMARY | 2024-04-28 15:20 | XMS_ITS | Encounter Summary ---
[place] [address] Care Team Providers Care Equipment Or Machinery Cleaner Name Role Phone Regis Muller MD Primary Care Provider [phone] Encounter Details Date Type Department Care Team (Late st Contact Info) Description 01/26/2022 Telephone [place] [id number] [employer] Social History Tobacco Use Types [...] on filedocumented in this encounter Care Teams Equipment Or Machinery Cleaner Relationship Specialty Start Date End Date Regis Muller MD [address] [place] [address] PCP - General Emergency Medicine 06/24/21 documented as of this encounter
--- OUTSIDE RECORDS SUMMARY | 2024-04-28 15:20 | XMS_ITS | Encounter Summary ---
[place] [address] Care Team Providers Care Rehabilitator Name Role Phone Regis Muller MD Primary Care Provider [phone] Encounter Details Date Type Department Care Team (Latest Contact Info) Description 08/30/2021 9:15 AM EST Laboratory Appointment Lab [address] [address] Aortic stenosis, severe Social History Tobacco Use [...] EST Aortic stenosis, severe COMPREHENSIVE METABOLIC PANEL Routine 08/30/2021 9:17 AM EST Aortic stenosis, severe documented in this encounter Results * Scan, Peripheral Blood (08/30/2021 9:17 AM EST) Plat estimate Normal [facility] RBC Morphology Abnormal [facility] Microcyte 6-10 /HPF [facility] Hypochromia Moderate [facility] Ovalocytes 1-5 /HPF [facility] Plat, Giant Less than 1 /HPF [facility] Blood 08/30/2021 9:17 AM EST 08/30/2021 9:33 AM EST Narrative Resulting Agency Comment Spec In Lab Harris Castillo MD HEMATOLOGY ORDERABLE S [facility] [place] [address] * (ABNORMAL) Differential, Automated (08/30/2021 9:17 AM EST) [facility] Neutrophil % 73.4 % [facility] Neutrophil Absolute 6.35(H) 1.70 - 6.10 x10(3)/mc L [facility] Lymph % 12.9 % [facility] Lymphocytes Abs 1.1 0.9 - 3.2 x10(3)/mc L [facility] Monocyte % 8.7 % [facility] Monocyte Abs 0.8 0.3 - 0.9 x10(3)/mc L [facility] Eos % 4.0 % [facility] Eosinophils Abs 0.4 0.0 - 0.4 x10(3)/mc L [facility] Basophil % 0.8 % [facility] Baso Absolute 0.1 0.0 - 0.1 x10(3)/mc L [facility] Immature Gran % 0.20 % [facility] Comment: Immature granulocytes(IG's)percentage and absolute count will include metamyelocytes, myelocytes, and promyelocytes. Blood smears from CBCs yielding IG's will be scanned manually for concordance. If this scan disagrees with the automated IG or if promyelocytes are noted, a manual differential will be performed. Immature Gran Absolute 0.02 0.00 - 0.04 x10(3)/ L [facility] Blood 08/30/2021 9:17 AM EST 08/30/2021 9:33 AM EST Narrative Resulting Agency Comment Spec In Lab Harris Castillo MD HEMATOLOGY ORDERABLE S [facility] [place] [address] * (ABNORMAL) Hemogram (08/30/2021 9:17 AM EST) White Blood Cell 8.7 4.0 - 9.5 x10(3)/[facility] Red Blood Cell 4.44 4.00 - 5.21 x10(6)/[facility] Hemoglobin 8.2(L) 11.7 - 15.5 g/dL [facility] Hematocrit 29.0(L) 35.7 - 45.8 % [facility] Mean Cell Volume 65.3(L) 82.6 - 94.[address] [facility] Mean Cell Hemoglobin 18.5(L) 27.1 - 32.[address] [facility] Mean Cell Hemoglobin Concentration 28.3(L) 31.7 - 35.0 g/dL [facility] Platelet 290 145 - 357 x10(3)/[facility] RDW Standard Deviation 53.3(H) 37.0 - 46.[address] [facility] RDW coefficient of variation 23.4(H) 11.5 - 14.1 % [facility] Mean Platelet Volume 10.3 7.6 - 12.[address] [facility] NRBC% auto 0.0 % [facility] NRBC Absolute 0.000 0.000 - 0.000 x10(3)/mc L [facility] Blood 08/30/2021 9:17 AM EST 08/30/2021 9:33 AM EST Narrative Resulting Agency Comment Spec In Lab Harris Castillo MD HEMATOLOGY ORDERABLE S [facility] [place] [address] * (ABNORMAL) Comprehensive metabolic panel (non-fasting) (08/30/2021 9:17 AM EST) Glucose 284(H) 65 - 199 mg/dL [facility] Comment:Diabetes: >=200 mg/d L plus symptoms Blood Urea Nitrogen 20(H) 8 - 18 mg/dL [facility] Creatinine 0.76 0.70 - 1.20 mg/dL [facility] Sodium 136 135 - 145 mmol/L [facility] Potassium 4.4 3.5 - 5.0 mmol/L [facility] Comment: Please note: ??Patients with WBC >100,000 may have falsely elevated Potassium levels. ??For accurate Potassium quantification in these patients send serum separator tube (gold top) for subsequent determinations. ??Contact the Clinical Chemistry Laboratory if there are any questions. Chloride 103 98 - 107 mmol/L [facility] Carbon Dioxide 21(L) 22 - 31 mmol/L [facility] Anion Gap 12 5 - 15 mmol/L [facility] Calcium 9.0 8.5 - 10.5 mg/dL [facility] Protein, Total 6.3 6.1 - 8.0 g/dL [facility] Albumin 3.8 3.2 - 5.2 g/dL [facility] Aspartate Aminotransferase 56(H) 0 - 30 unit/L [facility] Alanine Aminotransferase 55(H) 0 - 30 unit/L [facility] Alkaline Phosphatase 252(H) 35 - 105 unit/L [facility] Bilirubin, Total 0.7 0.2 - 1.3 mg/dL [facility] Est Glomerular Filtration Rate 74 >=60 mL/min/1. 73 m?? [facility] [...] In Lab Harris Castillo MD CHEMISTRY ORDERABLES [facility] [place] [address] documented in this encounter Visit Diagnoses Diagnosis Aortic stenosis, severe Aortic valve disorders documented in this encounter Care Teams Rehabilitator Relationship Specialty Start Date End Date Regis Muller MD [address] [place] [address] PCP - General Emergency Medicine 06/24/21 documented as of this encounter
--- OUTSIDE RECORDS SUMMARY | 2024-04-28 15:20 | XMS_ITS | Encounter Summary ---
Author Organization [facility] Address [facility] [place] [address] Care Team Providers Care Restaurant Managing Partner Name Role Phone Regis Muller MD Primary Care Provider [phone] Encounter Details Date Type Department Care Team (Latest Contact Info) Description 08/30/2021 11:00 AM EST Office Visit Cardiology at [address] [address] Harris Castillo MD [facility] [place] [address] Aortic valve stenosis, etiology of cardiac valve [...] this encounter Progress Notes * Ginna Crum, STOCK LAYER - 08/30/2021 11:00 AM EST Images from the original note were not included. [place] [address] [address] Structural Heart Follow Up Subjective: HPI: Shannan [...] she has been following with GI at [facility] as well at at [facility] and underwent EGD/colonoscopy in August 2020 with [...] 466 QTC Calculated (Bezet) 524 Calculated P [place] 55 Calculated R [place] -29 Calculated T [place] 23 INTERPRETATION Normal sinus rhythm Right bundle [...] to GI/PCP regarding these results. Follow up: [facility] Cardiology, will plan to follow up [...] we did briefly broach non-pharmacologic options for mcfp stroke prevention (I.e. left atrial appendage occlusion) if she wishes to consider this or cannot be on A/C mcfp. Harris Castillo MD Pager [phone] documented in this encounter Plan of Treatment [...] (Bezet) 524 ms MUSE SYSTEM Calculated P [place] 55 degrees MUSE SYSTEM Calculated R [place] -29 degrees MUSE SYSTEM Calculated T [place] 23 degrees MUSE SYSTEM INTERPRETATION Normal sinus [...] type documented in this encounter Care Teams Restaurant Managing Partner Relationship Specialty Start Date End Date Regis Muller MD [address] [place] [address] PCP - General Emergency Medicine 06/24/21 documented as of this encounter
--- OUTSIDE RECORDS SUMMARY | 2024-04-28 15:20 | XMS_ITS | Clinical Summary ---
Author Organization [facility] Address [address] [place] [address] Care Team Providers Care Benefits Consulting Analyst Name Role Phone Hannah Gagnon MD Primary Care Provider [phone] Medications Medication Sig Dispensed Refills Start Date [...] COVID-19 Vaccine (24 season) 2023 Care Teams Benefits Consulting Analyst Relationship Specialty Start Date End Date Hannah Gagnon MD [address] [place] [id number] PCP - General 12/06/12
--- OUTSIDE RECORDS SUMMARY | 2024-04-28 15:21 | XMS_ITS | Encounter Summary ---
Author Organization [facility] [place] [address] Care Team Providers Care Video Game Engineer Name Role Phone Reshma Baig MD Primary Care Provider [phone] Encounter Details Date Type Department Care Team (Late st Contact Info) Description 06/14/2021 Ancillary Procedure [place] [address] [facility] [place] [address] Social History Tobacco Use Types Packs/Day Years [...] MR Spine (06/14/2021 12:00 AM EDT) Narrative [facility] - 12/07/2021 5:50 PM EDT This exam is auto-finalizing. It's purpose is for storage only. Kia Reno MD IMG FILM LIBRARY ORD ERABLES [place], [place] documented in this encounter Visit Diagnoses Not on filedocumented in this encounter Care Teams Video Game Engineer Relationship Specialty Start Date End Date Reshma Baig MD [address] [place] [address] PCP - General Family Medicine 11/08/18 06/23/21 documented as of this encounter
--- OUTSIDE RECORDS SUMMARY | 2024-04-28 15:21 | XMS_ITS | Encounter Summary ---
Author Organization [facility] [place] [address] Care Team Providers Care Human Resources Receptionist Name Role Phone Reshma Baig MD Primary Care Provider [phone] Encounter Details Date Type Department Care Team (Late st Contact Info) Description 10/18/2020 2:30 PM EST Office Visit Cardiology at [address] [address] S/P TAVR (transcatheter aortic valve replacement) Social [...] (Bezet) 521 ms MUSE SYSTEM Calculated P [place] 23 degrees MUSE SYSTEM Calculated R [place] -33 degrees MUSE SYSTEM Calculated T [place] 11 degrees MUSE SYSTEM INTERPRETATION Normal sinus [...] replacement) documented in this encounter Care Teams Human Resources Receptionist Relationship Specialty Start Date End Date Reshma Baig MD [address] [place] [address] PCP - General Family Medicine 11/08/18 06/23/21 documented as of this encounter
--- OUTSIDE RECORDS SUMMARY | 2024-04-28 15:21 | XMS_ITS | Encounter Summary ---
Author Organization [facility] Address [facility] [place] [address] Care Team Providers Care Delicatessen Clerk Name Role Phone Regis Muller MD Primary Care Provider [phone] Reason for Visit * Reason Comments Medication Refill Encounter Details Date Type Department Care Team (Late st Contact Info) Description 01/04/2021 Refill Cardiology at [address] [address] Prashanth Jacob PA [facility] [place] [address] Medication Refill Social History Tobacco Use Types [...] on filedocumented in this encounter Care Teams Delicatessen Clerk Relationship Specialty Start Date End Date Regis Muller MD [address] [place] [address] PCP - General Emergency Medicine 06/24/21 documented as of this encounter
--- OUTSIDE RECORDS SUMMARY | 2024-04-28 15:21 | XMS_ITS | Encounter Summary ---
Author Organization [facility] Address [facility] [place] [address] Care Team Providers Care Non Morse Intercept Technician Name Role Phone Reshma Baig MD Primary Care Provider [phone] Encounter Details Date Type Department Care Team (Late st Contact Info) Description 06/14/2021 12:05 AM EDT Ancillary Procedure [place] [address] Kia Reno MD [facility] [place] [address] Social History Tobacco Use Types Packs/Day Years [...] MR Spine (06/14/2021 12:05 AM EDT) Narrative [facility] - 12/07/2021 5:52 PM EDT This exam is auto-finalizing. It's purpose is for storage only. Kia Reno MD IMG FILM LIBRARY ORD ERABLES Performing Organization Address City/State/[facility] Co de Phone Number [place], [place] documented in this encounter Visit Diagnoses Not on filedocumented in this encounter Care Teams Non Morse Intercept Technician Relationship Specialty Start Date End Date Reshma Baig MD [address] [place] [address] PCP - General Family Medicine 11/08/18 06/23/21 documented as of this encounter
--- OUTSIDE RECORDS SUMMARY | 2024-04-28 15:21 | XMS_ITS | Encounter Summary ---
[place] [address] Care Team Providers Care Compliance Review Specialist Name Role Phone Reshma Baig MD Primary Care Provider [phone] Encounter Details Date Type Department Care Team (Latest Contact Info) Description 10/18/2020 12:30 PM EST Laboratory Appointment Lab [address] [address] S/P TAVR (transcatheter aortic valve replacement) Social [...] Peripheral Blood (10/18/2020 11:56 AM EST) Pathologist [facility] Plat estimate Normal [facility] RBC Morphology Abnormal [facility] Microcyte 1-5 /HPF [facility] Hypochromia Slight [facility] Ovalocytes 1-5 /HPF [facility] Plat, Giant Less than 1 /HPF [facility] Blood specimen (specimen) 10/18/2020 11:56 AM EST 10/18/2020 12:11 PM EST Narrative Resulting Agency Comment Spec In Lab Prashanth ARMANDO HEMATOLOGY ORDERABLE S Performing Organization Address City/State/[facility] Co de Phone Number [facility] [place] [address] * Differential, Automated (10/18/2020 11:56 AM EST) [facility] Neutrophil % 72.5 % [facility] Neutrophil Absolute 4.71 1.70 - 6.10 x10(3)/[facility] Lymph % 15.7 % [facility] Lymphocytes Abs 1.0 0.9 - 3.2 x10(3)/[facility] Monocyte % 7.7 % [facility] Monocyte Abs 0.5 0.3 - 0.9 x10(3)/[facility] Eos % 2.9 % [facility] Eosinophils Abs 0.2 0.0 - 0.4 x10(3)/[facility] Basophil % 0.9 % [facility] Baso Absolute 0.1 0.0 - 0.1 x10(3)/[facility] Immature Gran % 0.30 % [facility] Comment: Immature granulocytes(IG's)percentage and absolute count will include metamyelocytes, myelocytes, and promyelocytes. Blood smears from CBCs yielding IG's will be scanned manually for concordance. If this scan disagrees with the automated IG or if promyelocytes are noted, a manual differential will be performed. Immature Gran Absolute 0.02 0.00 - 0.04 x10(3)/mcL [facility] Blood specimen (specimen) 10/18/2020 11:56 AM EST 10/18/2020 12:11 PM EST Narrative Resulting Agency Comment Spec In Lab Prashanth ARMANDO HEMATOLOGY ORDERABLE S [facility] [place] [address] * (ABNORMAL) Hemogram (10/18/2020 11:56 AM EST) White Blood Cell 6.5 4.0 - 9.5 x10(3)/[facility] Red Blood Cell 4.25 4.00 - 5.21 x10(6)/[facility] Comment:Dimorphic RBC popula tion. Hemoglobin 10.8(L) 11.7 - 15.5 gm/dL [facility] Hematocrit 34.9(L) 35.7 - 45.8 % [facility] Mean Cell Volume 82.1(L) 82.6 - 94.4 fL [facility] Mean Cell Hemoglobin 25.4(L) 27.1 - 32.0 pg [facility] Mean Cell Hemoglobin Concentration 30.9(L) 31.7 - 35.0 gm/dL [facility] Platelet 242 145 - 357 x10(3)/[facility] RDW Standard Deviation Not Measured 37.0 - 46.0 fL [facility] RDW coefficient of variation Not Measured 11.5 - 14.1 % [facility] Mean Platelet Volume 10.5 7.6 - 12.9 fL [facility] NRBC% auto 0.0 % [facility] NRBC Absolute 0.000 0.000 - 0.000 x10(3)/mc L [facility] Blood specimen (specimen) 10/18/2020 11:56 AM EST 10/18/2020 12:11 PM EST Narrative Resulting Agency Comment Spec In Lab Prashanth ARMANDO HEMATOLOGY ORDERABLE S [facility] [place] [address] * (ABNORMAL) Comprehensive metabolic panel (non-fasting) (10/18/2020 11:52 AM EST) Glucose 302(H) 65 - 199 mg/dL [facility] Comment:Diabetes: >=200 mg/d L plus symptoms Blood Urea Nitrogen 18 8 - 18 mg/dL [facility] Creatinine 0.92 0.70 - 1.20 mg/dL [facility] Sodium 139 135 - 145 mmol/L [facility] Potassium 4.5 3.5 - 5.0 mmol/L [facility] Comment: Please note: ??Patients with WBC >100,000 may have falsely elevated Potassium levels. ??For accurate Potassium quantification in these patients send serum separator tube (gold top) for subsequent determinations. ??Contact the Clinical Chemistry Laboratory if there are any questions. Chloride 104 98 - 107 mmol/L [facility] Carbon Dioxide 23 22 - 31 mmol/L [facility] Anion Gap 12 5 - 15 mmol/L [facility] Calcium 9.3 8.5 - 10.5 mg/dL [facility] Protein, Total 6.9 6.1 - 8.0 gm/dL [facility] Albumin 4.5 3.2 - 5.2 gm/dL [facility] Aspartate Aminotransferase 36(H) 0 - 30 unit/L [facility] Alanine Aminotransferase 44(H) 0 - 30 unit/L [facility] Alkaline Phosphatase 125(H) 35 - 105 unit/L [facility] Bilirubin, Total 0.7 0.2 - 1.3 mg/dL [facility] Est Glomerular Filtration Rate 59(L) >=60 mL/min/1. 73 m?? [facility] Comment: This patient? s [...] Lab Pan Hurtado MD CHEMISTRY ORDERABL ES [facility] [place] [address] documented in this encounter Visit Diagnoses Diagnosis S/P TAVR (transcatheter aortic valve replacement) documented in this encounter Care Teams Compliance Review Specialist Relationship Specialty Start Date End Date Reshma Baig MD [address] [place] [address] PCP - General Family Medicine 11/08/18 06/23/21 documented as of this encounter
--- OUTSIDE RECORDS SUMMARY | 2024-04-28 15:21 | XMS_ITS | Encounter Summary ---
Author Organization [facility] Address [facility] [place] [address] Care Team Providers Care Leaflet Distributor Name Role Phone Regis Muller MD Primary Care Provider [phone] Reason for Visit * Reason Comments Medication Refill Encounter Details Date Type Department Care Team (Late st Contact Info) Description 10/04/2020 [place] [address] Davon Leung MD [facility] [place] [address] Social History Tobacco Use Types Packs/Day Years [...] on filedocumented in this encounter Care Teams Leaflet Distributor Relationship Specialty Start Date End Date Regis Muller MD [address] [place] [address] PCP - General Emergency Medicine 06/24/21 documented as of this encounter
--- OUTSIDE RECORDS SUMMARY | 2024-04-28 15:21 | XMS_ITS | Encounter Summary ---
Author Organization [facility] Address [facility] [place] [address] Care Team Providers Care Metallurgy Laboratory Technician Name Role Phone Reshma Baig MD Primary Care Provider [phone] Reason for Referral * Diagnostic Test (Routine) - Closed Specialty Diagnoses / Procedures Referred By Contac t Referred To Contact Cardiology Diagnoses Aortic stenosis, severe Procedures Echocardiogram Transthoracic([facility]) Harris Castillo MD [facility] [place] [address] [facility] [place] [address] Referral ID Status Reason Start Date Expiration Date V isits Requested Visits Authorized [id number] Closed Specialty Service Requested 05/30/2021 05/30/2022 1 1 Encounter Details Date Type Department Care Team (Late st Contact Info) Description 05/30/2021 Orders Only Cardiology at [address] [address] Nacho Warner, RN Aortic stenosis, severe Social History Tobacco [...] A ? (Age): 1940(80y) Med Rec#: ? [id number] ?Sex: ?F ? [place] ? [facility] [place]Ht / Wt: ??158(cm)/82(kg) Pt. Loc: ?Echo Lab ?BSA: ?1.84 Study Date: ?? 08/30/2021 ?Pt. Type: Outpatient Tape: ? Referring: Harris Castillo Reading: Darwin Connors ([id number]) At Risk Paraprofessional: Sherrie Peterson Diagnosis: *Nonrheumatic aortic (valve) stenosis [...] ? Pulmonic Valve/Qp:Qs ?Value ?Units (Range) ? [place] end-diastolic Vma0.53 ? m/sec ? PA end-diastolic pre4.12 ? mmHg ? This report has been electronically signed by: Darwin Connors M.D. ? 08/30/2021 11:30:32 Images reviewed and interpretation verified [facility] Cardiac Ultrasound Laboratory Procedure Note Darwin Connors MD - 08/30/2021 Procedure: Transthoracic Echocardiogram Patient: WILLIAM Francis DOB(Age): 1940(80y) Med Rec#: [id number] Sex: F [place] Loc[place] [facility] Ht / Wt: 158(cm)/82(kg) Pt. Loc: Echo Lab BSA: 1.84 Study Date: 08/30/2021 Pt. Type: Outpatient Tape: Referring: Harris Castillo Reading: Darwin Connors ([id number]) At Risk Paraprofessional: Sherrie Peterson Diagnosis: *Nonrheumatic aortic (valve) stenosis [...] 45 mmHg Pulmonic Valve/Qp:Qs Value Units (Range) W[place] end-diastolic Vma0.53 m/sec PA end-diastolic pre4.12 mmHg This report has been electronically signed by: Darwin Connors M.D. 08/30/2021 11:30:32 Images reviewed and interpretation verified [facility] Cardiac Ultrasound Laboratory Harris Castillo MD ECHO ORDERABLES * (ABNORMAL) Comprehensive metabolic panel (non-fasting) (08/30/2021 9:17 AM EST) Glucose 284(H) 65 - 199 mg/dL [facility] Comment:Diabetes: >=200 mg/d L plus symptoms Blood Urea Nitrogen 20(H) 8 - 18 mg/dL [facility] - 107 mmol/L [facility] Carbon Dioxide 21(L) 22 - 31 mmol/L [facility] Anion Gap 12 5 - 15 mmol/L [facility] Calcium 9.0 8.5 - 10.5 mg/dL [facility] Protein, Total 6.3 6.1 - 8.0 g/dL [facility] Albumin 3.8 3.2 - 5.2 g/dL [facility] Aspartate Aminotransferase 56(H) 0 - 30 unit/L [facility] Alanine Aminotransferase 55(H) 0 - 30 unit/L [facility] Alkaline Phosphatase 252(H) 35 - 105 unit/L [facility] Bilirubin, Total 0.7 0.2 - 1.3 mg/dL [facility] Est Glomerular Filtration Rate 74 >=60 mL/min/1. 73 m?? [facility] MD CHEMISTRY ORDERABLES [facility] [place] [address] documented in this encounter Visit Diagnoses Diagnosis Aortic stenosis, severe Aortic valve disorders Aortic stenosis, severe Aortic valve disorders documented in this encounter Care Teams Metallurgy Laboratory Technician Relationship Specialty Start Date End Date Reshma Baig MD [address] [place] [address] PCP - General Family Medicine 11/08/18 06/23/21 documented as of this encounter
--- OUTSIDE RECORDS SUMMARY | 2024-04-28 15:21 | XMS_ITS | Encounter Summary ---
Author Organization [facility] [place] [address] Care Team Providers Care Crown Ironer Operator Name Role Phone Reshma Baig MD Primary Care Provider [phone] Reason for Referral * Diagnostic Test (Routine) - Closed Specialty Diagnoses / Procedures Referred By Contac t Referred To Contact Cardiology Diagnoses S/P TAVR (transcatheter aortic valve replacement) Procedures Echocardiogram Transthoracic([facility]) Prashanth Jacob PA [facility] [place] [address] [facility] [place] [address] Referral ID Status Reason Start Date Expiration Date V isits Requested Visits Authorized [id number] Closed Specialty Service Requested 10/13/2020 04/10/2021 1 1 Reason for Visit * Diagnostic Test (Routine) - Closed Specialty Diagnoses / Procedures Referred By Contac t Referred To Contact Cardiology Diagnoses S/P TAVR (transcatheter aortic valve replacement) Procedures Echocardiogram Transthoracic([facility]) Prashanth Jacob PA [facility] [place] [address] [facility] [place] [address] Referral ID Status Reason Start Date Expiration Date V isits Requested Visits Authorized [id number] Closed Specialty Service Requested 10/13/2020 04/10/2021 1 1 Encounter Details Date Type Department Care Team (Latest Contact Info) Description 10/18/2020 12:07 PM EST - 10/18/2020 11:59 PM EST Hospital Encounter Non[place] [id number] S/P TAVR (transcatheter aortic valve replacement) Discharge [...] A ? (Age): 1940(80y) Med Rec#: ? [id number] ?Sex: ?F ? Site Loc: ? [facility] ?Ht / Wt: ??158(cm)/79(kg) Pt. Loc: ?Echo Lab ?BSA: ?1.81 Study Date: ?? 10/18/2020 ?Pt. Type: Outpatient Tape: ? Referring: Pan Hurtado Reading: Fang Law ([id number]) Pipe Coverer And Insulator: Wilfredo Santiago RDCS Diagnosis: *Presence of prosthetic [...] Vmax ?1.19 ? m/sec ? MV deceleration qrme660.35 ? msec ? MV A-wave Vmax ?1.68 [...] ? Mid-Inferior ?Normal ? Mid-Inferoseptal ?Normal ? [place]-Septal ? Normal ? [place]-Anterior ? Normal ? [place]-Lateral ?Normal ? [place]-Inferior ? Normal ? [place]-Tip ?Normal ? This report has been electronically signed by: Fang Law MD ? 10/18/2020 14:41:12 Images reviewed and interpretation verified [facility] Cardiac Ultrasound Laboratory Procedure Note Fang Law MD - 10/18/2020 Amended Report Procedure: Transthoracic Echocardiogram Patient: WILLIAM Francis DOB(Age): 1940(80y) Med Rec#: [id number] Sex: F [place] [facility] [place]t / Wt: 158(cm)/79(kg) Pt. Loc: Echo Lab BSA: 1.81 Study Date: 10/18/2020 Pt. Type: Outpatient Tape: Referring: Pan Hurtado Reading: Fang Law ([id number]) Pipe Coverer And Insulator: Wilfredo Santiago [facility] Diagnosis: *Presence of prosthetic heart valve (Z95.2) [...] MV E-wave Vmax 1.19 m/sec MV deceleration uyjn838.35 msec MV A-wave Vmax 1.68 m/sec MV [...] Normal Mid-Posterolateral Normal Mid-Inferior Normal Mid-Inferoseptal Normal [place]-Septal Normal [place]-Anterior Normal [place]-Lateral Normal [place]-Inferior Normal [place]-Tip Normal This report has been electronically signed by: Fang Law MD 10/18/2020 14:41:12 Images reviewed and interpretation verified [facility] Cardiac Ultrasound Laboratory Pan Hurtado MD ECHO ORDERABLES documented in this encounter Visit Diagnoses Diagnosis S/P TAVR (transcatheter aortic valve replacement) documented in this encounter Care Teams Crown Ironer Operator Relationship Specialty Start Date End Date Reshma Baig MD [address] [place] [address] PCP - General Family Medicine 11/08/18 06/23/21 documented as of this encounter
--- OUTSIDE RECORDS SUMMARY | 2024-04-28 15:21 | XMS_ITS | Encounter Summary ---
Author Organization [facility] Address [facility] [place] [address] Care Team Providers Care Container Washer Machine Name Role Phone Reshma Baig MD Primary Care Provider [phone] Encounter Details Date Type Department Care Team (Latest Contact Info) Description 10/18/2020 3:00 PM EST Office Visit Cardiology at [address] [address] Maria L Green PA [facility] [place] [address] Aortic valve stenosis, etiology of cardiac valve [...] Note: Added automatically from request for surgery [id number] 06/24/2020: Valvuloplasty Conclusions: * Severe aortic stenosis [...] significant bruising or discomfort. 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
--- OUTSIDE RECORDS SUMMARY | 2024-04-28 15:21 | XMS_ITS | Encounter Summary ---
Author Organization [facility] Address [facility] [place] [address] Care Team Providers Care Radiotelephone Technical Operator Name Role Phone Regis Muller MD Primary Care Provider [phone] Reason for Referral * Diagnostic Test (Routine) - Closed Specialty Diagnoses / Procedures Referred By Contac t Referred To Contact Cardiology Diagnoses Aortic stenosis, severe Procedures Echocardiogram Transthoracic([facility]) Harris Castillo MD [facility] [place] [place] [address] [facility] [place] [address] Referral ID Status Reason Start Date Expiration Date V isits Requested Visits Authorized [id number] Closed Specialty Service Requested 05/30/2021 05/30/2022 1 1 Reason for Visit * Diagnostic Test (Routine) - Closed Specialty Diagnoses / Procedures Referred By Contac t Referred To Contact Cardiology Diagnoses Aortic stenosis, severe Procedures Echocardiogram Transthoracic([facility]) Harris Castillo MD [facility] [place] [address] [place] [address] [facility] [place] [address] Referral ID Status Reason Start Date Expiration Date V isits Requested Visits Authorized [id number] Closed Specialty Service Requested 05/30/2021 05/30/2022 1 1 Encounter Details Date Type Department Care Team (Latest Contact Info) Description 08/30/2021 9:33 AM EST - 08/30/2021 11:59 PM EST Hospital Encounter Non[place] [address] Aortic stenosis, severe Discharge Disposition: [...] AM EST Procedure: ?Transthoracic Echocardiogram Patient: ?WILLIAM ASHER A ? (Age): 1940(80y) Med Rec#: ? [id number] ?Sex: ?F ? Site Loc: ? [facility] ?Ht / Wt: ??158(cm)/82(kg) Pt. Loc: ?Echo Lab ?BSA: ?1.84 Study Date: ?? 08/30/2021 ?Pt. Type: Outpatient Tape: ? Referring: Harris Castillo Reading: Darwin Connors ([id number]) Certified Medical Technician Assistant: Sherrie Peterson Diagnosis: *Nonrheumatic aortic (valve) stenosis [...] ? Pulmonic Valve/Qp:Qs ?Value ?Units (Range) ? AR end-diastolic Vma0.53 ? m/sec ? PA end-diastolic pre4.12 ? mmHg ? This report has been electronically signed by: Darwin Connors M.D. ? 08/30/2021 11:30:32 Images reviewed and interpretation verified [facility] Cardiac Ultrasound Laboratory Procedure Note Darwin Connors MD - 08/30/2021 Procedure: Transthoracic Echocardiogram Patient: WILLIAM Francis DOB(Age): 1940(80y) Med Rec#: [id number] Sex: F Site Loc: [facility] Ht / Wt: 158(cm)/82(kg) Pt. Loc: Echo Lab BSA: 1.84 Study Date: 08/30/2021 Pt. Type: Outpatient Tape: Referring: Harris Castillo Reading: Darwin Connors ([id number]) Certified Medical Technician Assistant: Sherrie Peterson Diagnosis: *Nonrheumatic aortic (valve) stenosis [...] 45 mmHg Pulmonic Valve/Qp:Qs Value Units (Range) AR end-diastolic Vma0.53 m/sec PA end-diastolic pre4.12 mmHg This report has been electronically signed by: Darwin Connors M.D. 08/30/2021 11:30:32 Images reviewed and interpretation verified [facility] Cardiac Ultrasound Laboratory Harris Castillo MD ECHO ORDERABLES documented in this encounter Visit Diagnoses Diagnosis Aortic stenosis, severe Aortic valve disorders documented in this encounter Care Teams Radiotelephone Technical Operator Relationship Specialty Start Date End Date Regis Muller MD [address] [place] [address] PCP - General Emergency Medicine 06/24/21 documented as of this encounter
--- OUTSIDE RECORDS SUMMARY | 2024-04-28 15:21 | XMS_ITS | Encounter Summary ---
Author Organization [facility] [place] [address] Care Team Providers Care Eyelet Operator Name Role Phone Reshma Baig MD Primary Care Provider [phone] Encounter Details Date Type Department Care Team (Late st Contact Info) Description 09/24/2020 Telephone Cardiology at [address] [phone] Ryan Marques, RN Social History Tobacco Use [...] VM prompt from Mounika - representing the [facility] or [place], [place] - seeking return call. Pleasant connection. Preparing blister pack prescription refills for Ms. Moody. Notes that their pharmacy does not have record of prescription below. Respectfully requests that it be re-issued, anticipating patient sampler pickup later today. Requested Prescriptions Pending Prescriptions Disp Refills ??? ferrous gluconate (Fergon) 324 mg (37.5 mg iron) Tablet 60 tablet 1 Sig: Take 1 tablet by mouth daily. Reviewed Epic record and discharge summary dated 09/16/2020. Prescription re- issued as requested. Refill prepped and forwarded to Provider for authorization Dilan Marques RNspa director Team Nurse [facility] documented in this encounter Plan of Treatment Not on file documented as of this encounter Visit Diagnoses Not on filedocumented in this encounter Care Teams Eyelet Operator Relationship Specialty Start Date End Date Reshma Baig MD [address] [place] [address] PCP - General Family Medicine 11/08/18 06/23/21 documented as of this encounter
--- OUTSIDE RECORDS SUMMARY | 2024-04-28 15:22 | XMS_ITS | Encounter Summary ---
[place] [address] Care Team Providers Care Wooden Boat Builder Name Role Phone Reshma Baig MD Primary Care Provider [phone] Reason for Visit * Auth/Cert Specialty Diagnoses / Procedures Referred By Malini carlson Referred To Contact Diagnoses Anemia Procedures EMERGENCY IPI Referral ID Status Reason Start Date Expiration Date Visits Re quested Visits Authorized [id number] 1 1 Encounter Details Date Type Department Care Team (Latest Contact Info) Description 09/15/2020 1:00 PM EST - 09/15/2020 11:59 PM EST Hospital Encounter Non[place] [address] Discharge Disposition: Home Social History Tobacco Use [...] 10.65 400 each 3 10/03/2016 Blood-Glucose Meter [facility] One Touch Ultra Brand, 250.02. 1 each 0 12/02/2013 Lancets [facility] Use twice daily or as needed. 200 [...] COMPLETE (09/15/2020 3:24 PM EST) EF 70 [employer] Anatomical Region Laterality Modality Other 09/15/2020 Narrative 09/16/2020 8:00 AM EST Procedure: ?Transthoracic Echocardiogram Patient: ?WILLIAM Francis ? (Age): 1940(80y) Med Rec#: ? [id number] ?Sex: ?F ? Site Loc: ? [facility] ?Ht / Wt: ??158(cm)/78(kg) Pt. Loc: ?D[facility]end Clerk ?BSA: ?1.8 Study Date: ?? 09/15/2020 ?Pt. Type: Inpatient Tape: ? Referring: Sera Valentin Reading: Jos Wheeler ([id number]) Paper Cutting Machine Operator: Danie Huff Diagnosis: *Nonrheumatic aortic (valve) [...] 09/15/2020 16:21:34 Images reviewed and interpretation verified [facility] Cardiac Ultrasound Laboratory Procedure Note Jos Wheeler MD - 09/16/2020 Procedure: Transthoracic Echocardiogram Patient: WILLIAM Francis (Age): 1940(80y) Med Rec#: [id number] Sex: F Site Loc: [facility] Ht / Wt: 158(cm)/78(kg) Pt. Loc: D[facility]end Clerk BSA: 1.8 Study Date: 09/15/2020 Pt. Type: Inpatient Tape: Referring: Sera Valentin Reading: Jos Wheeler ([id number]) Paper Cutting Machine Operator: Danie Huff Diagnosis: *Nonrheumatic aortic (valve) [...] report has been electronically signed by: Jos Wheelre MD 09/15/2020 16:21:34 Images reviewed and interpretation verified [facility] Cardiac Ultrasound Laboratory Abiodun Chun MD ECHO ORDERABLES documented in this encounter Visit Diagnoses Not on filedocumented in this encounter Care Teams Wooden Boat Builder Relationship Specialty Start Date End Date Reshma Baig MD [address] [place] [address] PCP - General Family Medicine 11/08/18 06/23/21 documented as of this encounter
--- OUTSIDE RECORDS SUMMARY | 2024-04-28 15:22 | XMS_ITS | Encounter Summary ---
Author Organization [facility] Address [facility] [place] [address] Care Team Providers Care Securities Attorney Name Role Phone Reshma Baig MD Primary Care Provider [phone] Reason for Visit * Auth/Cert Specialty Diagnoses / Procedures Referred By Malini carlson Referred To Contact Diagnoses Anemia Procedures EMERGENCY IPI Referral ID Status Reason Start Date Expiration Date Visits Re quested Visits Authorized [id number] 1 1 Encounter Details Date Type Department Care Team (Late st Contact Info) Description 09/15/2020 12:50 PM EST Anesthesia Event [place] [address] Kelin Patel MD [facility] [place] [address] Eamon Borrero MD [facility] [place] [address] Anesthesia Record Procedure Summary Procedure Name Responsible [...] cephalic vein (lateral side of arm), right; iqyi-plu-ofdels catheter system; 20 gauge, 1 in length; rmt, commercial drone software developer-vas; distraction, tolerated well, appears comfortable; 06/01/21 (LDA [...] Procedure Summary Date: 09/15/20 Room / Location: [facility] [address] [place] [address] CATH LABS Anesthesia Start: 1250 Anesthesia Stop: [...] All Anesthesia Providers: Anesthesiologist: Kelin Patel MD Airplane Pilot Helper: Eamon Borrero MD Vitals Value Taken Time BP 146/124 09/16/20 1100 Temp 36.8 ??C (98.2 ??F) 09/16/20 0800 Pulse 64 09/16/20 1129 Resp 16 09/16/20 1129 SpO2 99 % 09/16/20 1048 Pain Level 8 09/16/20 0836 Vitals shown include unvalidated device data. Patient Location: [facility] Level of Consciousness: Conscious but Sleepy [...] severe Added automatically from request for surgery [id number] ??? Obesity (BMI 30.0-34.9) ??? Aortic stenosis [...] [facility] INTERVENTIONL RAD ??? PRO COLONOSCOPY, DIAGNOSTIC N/A 09/12/2020 COLONOSCOPY, DIAGNOSTIC performed by Mane Avila MD at [facility] ENDOSCOPY ??? PRO LAP, CHOLECYSTECTOMY/GRAPH N/A 07/15/2020 LAPAROSCOPIC CHOLECYSTECTOMY WITH CHOLANGIOGRAM (WRVU 11.47) performed by Hong Rosenthal MD at [facility] MAIN OR ??? PRO UPPER GI ENDOSCOPY, BIOPSY N/A 09/12/2020 EGD WITH BIOPSY (WRVU 2.49) performed by Mane Avila MD at [facility] ENDOSCOPY ??? PRO UPPER GI ENDOSCOPY, DIAGNOSTIC N/A 05/03/2020 EGD, UPPER GI ENDOSCOPY performed by Brigitte Graf MD at [facility] ENDOSCOPY Social History Tobacco Use [...] 1.0 1.9* 2.7* BILIDIR 0.3 0.4* 0.3 09/15/20 09/14/20 09/13/20 0445 0351 0539 PT 11.2 12.2 12.8* INR 1.0 1.1 1.1 PTT 26 28 29 Lab Results Component Value Date ABORH O Pos 09/15/2020 Plan is for MAC (GA with ETT backup), standard ASA monitors, and adequate IV access. Eamon Borrero MD PGY3 (CA-2), Dental Office Manager Pager #[phone] Informed Consent: PAT Clinic Note documented in [...] g documented in this encounter Care Teams Securities Attorney Relationship Specialty Start Date End Date Reshma Baig MD [address] [place] [address] PCP - General Family Medicine 11/08/18 06/23/21 documented as of this encounter
--- OUTSIDE RECORDS SUMMARY | 2024-04-28 15:22 | XMS_ITS | Encounter Summary ---
Author Organization Formerly [facility] Address [facility] [address] Care Team Providers Care Deck Mate Name Role Phone Reshma Baig MD Primary Care Provider [phone] Reason for Referral * Diagnostic Test (Routine) - Closed Specialty Diagnoses / Procedures Referred By Contac t Referred To Contact Cardiology Diagnoses S/P TAVR (transcatheter aortic valve replacement) Procedures Echocardiogram Transthoracic([facility] or [facility]) Prashanth Jacob PA [facility] CARDIOTHORACIC [place] [address] [facility] [place] [address] Referral ID Status Reason Start Date Expiration Date V isits Requested Visits Authorized [id number] Closed Specialty Service Requested 10/13/2020 04/10/2021 1 1 * Consultation (Routine) - Specialty Diagnoses / Procedures Referred By Contact Referred To Contact Cardiac Rehabilitation Diagnoses S/P TAVR (transcatheter aortic valve replacement) Pan Hurtado MD [facility] [place] [address] Cardiac Rehab, [address] [place] [address] Referral ID Status Reason Start Date Expiration Date V isits Requested Visits Authorized [id number] Consult, Test & Treat Non DH PCP 09/18/2020 03/17/2021 36 36 * Diagnostic Test (Routine) - Closed Specialty Diagnoses / Procedures Referred By Contac t Referred To Contact Radiology Diagnoses Aortic valve stenosis, etiology of cardiac valve disease unspecified Procedures CT Cardiac for Morphology & Function Carol Reyna MD [facility] [place] [address] [facility] [place] [address] Referral ID Status Reason Start Date Expiration Date V isits Requested Visits Authorized [id number] Closed Specialty Service Requested 09/13/2020 03/11/2021 1 1 * Diagnostic Test (Routine) - Closed Specialty Diagnoses / Procedures Referred By Malini t Referred To Contact Radiology Diagnoses Aortic valve stenosis, etiology of cardiac valve disease unspecified Procedures CT Cardiac for Morphology & Function Carol Reyna MD [facility] [place] [address] [facility] [place] [address] Referral ID Status Reason Start Date Expiration Date V isits Requested Visits Authorized [id number] Closed Specialty Service Requested 09/13/2020 03/11/2021 1 1 Reason for Visit * Reason Comments Abnormal Labs hemoglobin 5.4 * Auth/Cert Specialty Diagnoses / Procedures Referred By Malini t Referred To Contact Diagnoses Anemia Procedures EMERGENCY IPI Referral ID Status Reason Start Date Expiration Date Visits Re quested Visits Authorized [id number] 1 1 Encounter Details Date Type Department Care Team (Latest Contact Info) Description 09/10/2020 4:42 PM EST - 09/18/2020 2:08 PM EST Hospital Encounter Intermediate Cardiac Care Unit [facility] [place] [address] Eamon Moser MD [facility] [place] [address] Amarilys Cerna MD [facility] [place] [address] Abiodun Chun MD [facility] [place] [address] Pan Hurtado MD [facility] [place] [address] Anemia (Primary Dx); Aortic valve stenosis, etiology [...] Patient Age: 80 y.o. Birthdate: 1940 Language: Palestinian Race: White Ethnicity: Not nor Admit Date: 09/10/2020 Discharge Date: 09/16/20 Attending Physician: Pan Hurtado MD Follow-up Recommendations for Providers: ??? Please continue routine management of cardiovascular risk factors including blood pressure, lipids, glucose, etc. ??? Please note any medication changes. ??? Our office will schedule a follow-up appointment with your PCP, Reshma Baig MD, or Primary Stone Planer, in ~ 7-10 days. ??? Our office will schedule a follow-up appointment with your Retail Product Advisor, Dr. Esau Rahman in 4 weeks with a chest x-ray, EKG, Echo, CBC, and CMP. ?? Dovb-Mxzzyv-md interval: After initial 30 day follow-up appointment , all TAVR patients will follow-up again in one year with an echo. Inpatient Provider Contact Information: [facility] Section of Cardiac Surgery [facility] [address] FAX [phone] Discharge Diagnoses (Hospital Problems) Primary Diagnoses: Aortic [...] DRAINAGE 04/28/2020 CT Guided Drain Peritoneal 04/28/2020 [facility] RAD CAT SCAN ??? HYSTERECTOMY, VAGINAL ??? IR BILIARY TUBE CHECK/CHANGE/REMOVE 06/03/2020 IR Biliary Tube Check/Change/Remove 06/03/2020 Jos Collins, DO [facility] INTERVENTIONL RAD ??? IR CHOLECYSTOSTOMY TUBE PLACEMENT 04/22/2020 IR Cholecystostomy Tube Placement 04/22/2020 Jos Collins, DO [facility] INTERVENTIONL RAD ??? IR DRAIN CHECK/CHANGE/REMOVE 05/19/2020 IR Drain Check/Change/Remove 05/19/2020 Jos Collins, DO [facility] INTERVENTIONL RAD ??? PRO COLONOSCOPY, DIAGNOSTIC N/A 09/12/2020 COLONOSCOPY, DIAGNOSTIC performed by Mane Avila MD at [facility] ENDOSCOPY ??? PRO LAP, CHOLECYSTECTOMY/GRAPH N/A 07/15/2020 LAPAROSCOPIC CHOLECYSTECTOMY WITH CHOLANGIOGRAM (WRVU 11.47) performed by Hong Rosenthal MD at [facility] MAIN OR ??? PRO UPPER GI ENDOSCOPY, BIOPSY N/A 09/12/2020 EGD WITH BIOPSY (WRVU 2.49) performed by Mane Avila MD at [facility] ENDOSCOPY ??? PRO UPPER GI ENDOSCOPY, DIAGNOSTIC N/A 05/03/2020 EGD, UPPER GI ENDOSCOPY performed by Brigitte Graf MD at [facility] ENDOSCOPY Prior To Admission Medications Medications [...] 10.65 400 each 3 ??? Blood-Glucose Meter [facility] One Touch Ultra Brand, 250.02. 1 each [...] Hospital Course: Shannan Chaudhary was admitted to [facility] on 09/10/2020 via admission from clinic to [...] TF TAVR She was brought to the record label internship 09/16/[address] Pan Hurtado and Esau [...] tablet Refills: 0 blood sugar diagnostic strips Str Commonly known as: OneTouch Ultra Test 1 each by Other route 3 times daily (before meals). Diag code E10.65 1 each Quantity: 300 each Refills: 3 Blood-Glucose Meter [facility] One Touch Ultra Brand, 250.02. Quantity: 1 [...] or drainage from your procedural sites. Your Retail Product Advisor, Dr. Esau Rahman and/or the Car Knocker may be reached at . You may also contact KAMI Mayberry RN, TAVR Online Trader at [phone] with any questions or issues. Antibiotic prophylaxis: [...] Please refer to the card with the [place] Heart Association Guidelines for more information. You have been provided with a copy of this card. Please refer to the [place] Heart Association Guidelines for more information. Good [...] friends, go to a movie, go to oriental orthodox, etc. Heavy activities: No hunting, skiing, jogging, [...] should resume a low fat, low cholesterol, [place] Heart Association Diet. Driving: No driving for [...] pain, warmth or drainage. Please call your tractor sweeper driver's office if you haveany discharge or drainage from your procedural sites. If there is a lot of swelling, apply yakelin wraps during the day and remove at bedtime. Elevate your legs when you are sitting. Home oxygen therapy: N/A Follow up appointments: ??? Our office will schedule a follow-up appointment with your PCP, Reshma Baig MD, or Primary Stone Planer, in ~ 7-10 days. ??? Our office will schedule a follow-up appointment with your Retail Product Advisor, Dr. Esau Rahman, in 4 weeks with a chest x-ray, EKG, Echo, and labs prior to your appointment. ?? Lltv-Feownc-hz interval: After initial 30 day follow-up appointment , all TAVR patients will follow-up again in one year with an echo. Cardiac Rehabilitation: Shannan Francis Heidy was seen today regarding participation in the outpatient Phase 2 Cardiac Rehabilitation at [facility]. The patient agrees to a referral to this program. The referral will be sent at discharge and the patient should be contacted by the Program within 1- 2 weeks from discharge. Future Appointments and Orders Future Appointments and Orders Future Appointments Provider Department Dept Phone 10/18/2020 12:30 PM LAB, THREE L Lab [address] [place] [address] Arrive at: [facility] [phone] 10/18/2020 1:00 PM ECHO REGULAR Non-Invasive Cardiology Lab [facility] Arrive at: [place] [phone] 10/18/2020 2:30 PM NURSE, CARDIOLOGY Cardiology at [facility] Arrive at: [facility] [phone] 10/18/2020 3:00 PM Maria L Green PA Cardiology at [facility] Arrive at: [facility] [phone] Future Orders Complete By Expires CBC (with Diff) [ZVZ433 Custom] 10/19/2020 (Approximate) 03/18/2021 Process Instructions: INCLUDES: WBC, RBC, Hgb, Hct, Platelets, RBC Indices and Differential Scheduling Instructions: Comments: Questions: Comprehensive metabolic panel (non-fasting) [[id number] Custom] 10/19/2020 (Approximate) 03/18/2021 Process Instructions: INCLUDES: Calcium, T Protein, Albumin, AST, ALT, Alk Phos, T Bili, BUN, Creat, GFR, Glucose, Lytes. Scheduling Instructions: Comments: Questions: Echocardiogram Transthoracic([facility] or [facility]) [94449 CPT(R)] 10/19/2020 (Approximate) 03/18/2021 Process Instructions: Scheduling Instructions: Questions: Is a Bubble Study requested?: Does the patient have Congenital Heart Disease?: GA rationale: Does patient require sedation?: Where should this exam be performed?: [facility] EKG 12 Lead [74091 CPT(R)] 10/19/2020 (Approximate) 03/18/2021 Process Instructions: Scheduling Instructions: Questions: Which DH location will this be performed?: [facility] Is a rhythm strip needed?: No XR Chest PA & Lateral (Generic) [72671 04867 Custom] 10/19/2020 (Approximate) 03/18/2021 Process Instructions: Scheduling Instructions: Questions: Where will study be performed?: [facility] Radiology Portable exam?: Reason for exam and clinical history: s/p TAVR Clinical information / sanchez questions: Stat read required?: Date of injury if applicable: Requested Time: Referral to Cardiac Rehab [[id number] Custom] As directed Process Instructions: If no progress note charted, please enter Clinical details in comments. 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 PHONE: [phone] FAX: [phone] RN orders: Cardiopulmonary assessment, incisional assessment, assess [...] issues please call the Cardiac SurgeryOffice at [phone] FOR MEDICARE ONLY: (please delete this section [...] noted. Questions: Agency name and contact information: [facility] Patient location post discharge: Home What services are requested: Registered Nurse Physical Therapy Start date: Responsible MD post discharge contact info: PCP Walker standard [EQ135 Custom] As directed Process Instructions: Scheduling Instructions: Comments: Shannan Chaudhary [address] [facility] [address] [place] [phone] (home) Telephone Information: Diagnosis:severe anemia, s/p TAVR with Unsteady gait Significant weakness, ataxia or gait abnormality Patient's: Hgt: 5'2 Wgt: 174 lbs VENDOR: [employer] Ordering: Front wheel walker Deliver to pt's hospital room #: 445 Questions: Vendor Name/Contact information: [facility] Discharge References/Attachments EGD (Upper Endoscopy): Post-op (Palestinian) Colonoscopy: Post-op (Palestinian) Arrangements for VNA/home care: As above. Signed: Prashanth Jacob PA-C [facility] Section of Cardiac Surgery Date: 09/18/2020 CC: MD Safia Mcdonald Linda, MD [address] [place] [phone] documented in this encounter Discharge Instructions * [...] or drainage from your procedural sites. Your Retail Product Advisor, Dr. Esau Rahman and/or the Car Knocker may be reached at . ?? You may also contact KAMI Mayberry RN, TAVR Online Trader at [phone] with any questions or issues. ?? Antibiotic [...] Please refer to the card with the [place] Heart Association Guidelines for more information. You have been provided with a copy of this card. Please refer to the [place] Heart Association Guidelines for more information. Good [...] friends, go to a movie, go to oriental orthodox, etc. ?? Heavy activities: No hunting, skiing, [...] should resume a low fat, low cholesterol, [place] Heart Association Diet. ?? Driving: No driving [...] pain, warmth or drainage. Please call your tractor sweeper driver's office if you haveany discharge or drainage from your procedural sites. If there is a lot of swelling, apply yakelin wraps during the day and remove at bedtime. Elevate your legs when you are sitting. ?? Home oxygen therapy: N/A ?? Follow up appointments: ?? Our office will schedule a follow-up appointment with your PCP, Reshma Baig MD, or Primary Stone Planer, in ~ 7-10 days. ?? Our office will schedule a follow-up appointment with your Retail Product Advisor, Dr. Esau Rahman, in 4 weeks with a chest x-ray, EKG, Echo, and labs prior to your appointment. ? Oijd-Rkigzx-wg interval: After initial 30 day follow-up appointment , all TAVR patients will follow-up again in one year with an echo. ?? Cardiac Rehabilitation: Shannan Chaudhary??was seen today regarding participation in the outpatient Phase 2 Cardiac Rehabilitation at [facility]. The patient agrees to a referral to this program.? The referral will be sent at discharge and the patient should be contacted by the Program within 1- 2 weeks from discharge. ?? * Attachments The following attachments cannot be sent through Care Everywhere. * EGD (Upper Endoscopy): Post-op (Palestinian) * Colonoscopy: Post-op (Palestinian) documented in this encounter Medications at Time [...] Brand, 250.02. 1 each 0 12/02/2013 Lancets [facility] Use twice daily or as needed. 200 [...] this encounter Progress Notes * Leandra Paz, BANQUET PILOT - 09/18/2020 1:14 PM EST Physical Therapy [...] and owns. Ambualted independently , without device, BANQUET PILOT. ?? Precautions/Special Considerations:??universal ? Mobility and Positioning [...] Time in 10:45-10:55) LEANDRA PAZ PTA Pager: [phone] Physical Therapy Inpatient Rehabilitation Department * Renetta [...] DRAINAGE 04/28/2020 CT Guided Drain Peritoneal 04/28/2020 [facility] RAD CAT SCAN ??? HYSTERECTOMY, VAGINAL ??? IR BILIARY TUBE CHECK/CHANGE/REMOVE 06/03/2020 IR Biliary Tube Check/Change/Remove 06/03/2020 Jos Collins, DO [facility] INTERVENTIONL RAD ??? IR CHOLECYSTOSTOMY TUBE PLACEMENT 04/22/2020 IR Cholecystostomy Tube Placement 04/22/2020 Jos Collins, DO [facility] INTERVENTIONL RAD ??? IR DRAIN CHECK/CHANGE/REMOVE 05/19/2020 IR Drain Check/Change/Remove 05/19/2020 Jos Collins, DO [facility] INTERVENTIONL RAD ??? PRO COLONOSCOPY, DIAGNOSTIC N/A 09/12/2020 COLONOSCOPY, DIAGNOSTIC performed by Mane Avila MD at [facility] ENDOSCOPY ??? PRO LAP, CHOLECYSTECTOMY/GRAPH N/A 07/15/2020 LAPAROSCOPIC CHOLECYSTECTOMY WITH CHOLANGIOGRAM (WRVU 11.47) performed by Hong Rosenthal MD at [facility] MAIN OR ??? PRO UPPER GI ENDOSCOPY, BIOPSY N/A 09/12/2020 EGD WITH BIOPSY (WRVU 2.49) performed by Mane Avila MD at [facility] ENDOSCOPY ??? 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 She says it is w/c accessible. She has a stall shower with a seat and grab bar. She does not have grab bars around the toilet. DME: shower seat, grab bars Baseline ADL/Mobility: Pt was independent BANQUET PILOT. She ambulated w/o a device, managed her ADL's and IADL's. 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 She reports being very tired prior to [...] WFL Vision & Perception: ?? corrective lenses timekeeping supervisor Communication: WFL Range of motion, strength, coordination: [...] and measurable assessment of functional outcome. Pager: [phone] RENETTA CONTRERAS OT 09/18/2020 Occupational Therapy Rehabilitation Department * Teresita Mccloud RN - 09/18/2020 11:22 AM EST Patient to discharge home today, [facility] walker delivered to patient room. Patient will be getting VNA services from [facility]. Orders posted by and will start care [...] therapy. Rain Winter OT Inpatient Rehab Pager #[phone] * Chioma Vann RN - 09/17/2020 2:01 [...] Home Health Agency Home Care / Non-Medical: [facility] PHONE: [phone] FAX: [phone] Transportation: daughter Current DME: Equipment Currently Used at Home: none DME Needed at DC: Equipment Needed After Discharge: [facility] Located @ [place], [place] Functional status prior to admission: independent Home Environment: Lives With: alone. Living Arrangements: apartment. . Current Functional Ability: independent with stand by assist Patient is insured through: Primary Insurance: [employer] [place] [employer] [place] / Plan[place] VHP / Product Type: *No Product type* / Secondary Insurance: MEDICARE Prescription Coverage: yes Preferred Pharmacy: [facility] [id number] [facility] [address] [place] [address] [place] [phone] This plan was formulated with input from patient, family and team. All are in agreement with plan. Chioma Vann RN, MSN Booth Cleaner - Cardiology Office of Care Management Pager: [phone] Work * Mikala Borden, PT - 09/17/2020 [...] and owns. Ambualted independently , without device, BANQUET PILOT. ?? Precautions/Special Considerations:??none specified ? Mobility and [...] plan as stated. Time IN / OUT: 6617-2787 Total Evaluation Minutes, Physical Therapy: 25(te-fx2) MIKALA BORDEN PT Pager: [phone] Physical Therapy Inpatient Rehabilitation Department * Ashley [...] 0600 and on the weekends please page [phone]. Jordan Roberts - 09/17/2020 11:22 AM EST [...] appetite. Active Orders Diet Carb Control diet 60// CHO counting level 2 Frequency: Effective Now [...] consulted in the interim. Jordan Davenport Pager: [phone] * Mikala Borden, PT - 09/16/2020 11:11 [...] and owns. Ambualted independently , without device, BANQUET PILOT. ?? Precautions/Special Considerations: none specified ? Mobility [...] plan as stated. Time IN / OUT: 5650-9828 Total Evaluation Minutes, Physical Therapy: 24(te-f x2) MIKALA BORDEN PT Pager: [phone] Physical Therapy Inpatient Rehabilitation Department * Jv Almaz, MANAGER NEW PRODUCT - 09/16/2020 8:48 AM EST Cardiac Surgery [...] 0600 and on the weekends please page [phone]. * Esau Rahman MD - 09/16/2020 8:11 [...] (BACTROBAN) 2 % ointment Topical (Top) BID Coylewright, Esau J, MD ??? sodium chloride 0.9 % (flush) [...] Units 1-6 Units Subcutaneous Q4H [facility] Carol Reyna MD 1 Units at 09/15/20 [...] Transdermal Q24H Carol Reyna MD No current [facility]-ordered outpatient medications on file. Lab Results [...] received in unit S/P TAVR in the record label internship. While sheath being pulled patient became profoundly hypotensive requiring up to 15 mcgs of Levophed. Intubation was being considered but patient improved with blood pressure improvement. On arrival in [facility] patient was on NRB and on Levo at 2. Patient also received 1 unit of blood and 1 liter of NSaline in record label internship. Shortly after arrival Right groin perclose started to bleed. Pressure was held. landscape and yardwork laborer PA over to inject lido with epi into rightgroin. He then pulled Left groin arterial sheath. At 6:30 Left groin venous sheath pulled by RN. Patient does only have one peripheral IV. Unable to obtain 2nd peripheral line despite attempts by Dr. Patel and IV team. Patient stable. Report given to Night RN. * Dago Merchant PA - 09/15/2020 5:06 PM EST [facility] Interventional Cardiology Structural [...] neurological deficit. Dago Merchant PA-C Interventional Cardiology [facility] Vascular [facility] Pager [phone] * Natalia Kamara MD - 09/15/2020 4:39 [...] lbs vs. SS weights SULEMAN Shaver Pager: [phone] * Alvin Serna MD - 09/15/2020 6:36 [...] Note: Added automatically from request for surgery [id number] ??? Obesity (BMI 30.0-34.9) ??? Aortic valve [...] additional CP, dyspnea, nausea, diaphoresis, lightheadedness, dizziness. -EGD/Hope on 09/12 negative -TAVR scheduled for today [...] of a pericardial effusion. Assessment and Plan: Sahnnan Chaudhary is a 80 y.o. female presenting [...] additional CP, dyspnea, nausea, diaphoresis, lightheadedness, dizziness. -EGD/Hope on 09/12 negative -CTA for TAVR scheduled [...] RN - 09/13/2020 3:17 PM EST The patient/b2b outside sales representative has been provided a list of Home Health Agencies/DME vendors which servetheir preferred geographic area. A letter describing our affiliations was reviewed with them and they were educated about their right to choose where referrals are placed. Provided patient with [facility] Star Quality Rating for Home care hand out. Patient requests referral to [facility]. PHONE: [phone] FAX: [phone] Expected date of discharge: 09/18/20. Referral routed to the Viscosity Worker for matching with agency/vendor and to provide any required information. 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 Pt is being evaluated for TAVR. Pt also has a h/o mid back pain and spasms, was supposed to have outpt PT eval this week in [facility] to address. Patient with the following active problems: Past Medical History: Diagnosis Date ??? Actinic keratosis 08/31/2011 ??? Diabetes ??? Seborrheic keratosis 08/31/2011 ??? Severe aortic stenosis Past Surgical History: Procedure Laterality Date ??? CT PERITONEAL DRAINAGE 04/28/2020 CT Guided Drain Peritoneal 04/28/2020 [facility] RAD CAT SCAN ??? HYSTERECTOMY, VAGINAL ??? IR BILIARY TUBE CHECK/CHANGE/REMOVE 06/03/2020 IR Biliary Tube Check/Change/Remove 06/03/2020 Jos Collins, DO [facility] INTERVENTIONL RAD ??? IR CHOLECYSTOSTOMY TUBE PLACEMENT 04/22/2020 IR Cholecystostomy Tube Placement 04/22/2020 Jos Collins, DO [facility] INTERVENTIONL RAD ??? IR DRAIN CHECK/CHANGE/REMOVE 05/19/2020 IR Drain Check/Change/Remove 05/19/2020 Jos Collins, DO [facility] INTERVENTIONL RAD ??? PRO COLONOSCOPY, DIAGNOSTIC N/A 09/12/2020 COLONOSCOPY, DIAGNOSTIC performed by Mane Avila MD at [facility] ENDOSCOPY ??? PRO LAP, CHOLECYSTECTOMY/GRAPH N/A 07/15/2020 LAPAROSCOPIC CHOLECYSTECTOMY WITH CHOLANGIOGRAM (WRVU 11.47) performed by Hong Rosenthal MD at [facility] MAIN OR ??? PRO UPPER GI ENDOSCOPY, BIOPSY N/A 09/12/2020 EGD WITH BIOPSY (WRVU 2.49) performed by Mane Avila MD at [facility] ENDOSCOPY ??? 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 Ambualted independently , without device, [employer]AN[employer] PIL[employer]. Precautions/Special Considerations: none specified Mobility and Positioning [...] in this evaluation. Time IN / OUT: 6465-0877 Total Evaluation Minutes, Physical Therapy: 20(eval) MIKALA BORDEN, PT Pager: [phone] Physical Therapy Inpatient Rehabilitation Department * Alvin [...] additional CP, dyspnea, nausea, diaphoresis, lightheadedness, dizziness. -EGD/Hope on 09/12 negative -severe muscle spasms in [...] ??? metoprolol tartrate 25 mg Oral Q6H BAISL ??? clopidogreL 75 mg Oral Daily ??? [...] angina Remain on single antiplatelet I will [place] back with patient/family and team once CT/surgery [...] Sarah Garland - 09/11/2020 7:52 PM EST Asphalt Paver Operator Encounter Note Patient Name: Shannan Chaudhary : [id number] MR#: [id number] Admit Date: 09/10/2020 4:42 PM Hospital Day [...] Will f/u FOBT and GI evaluation-plan for EGD/Hope tomorrow. Will also be worked up for [...] given acute anemia -GI to evaluate with EGD/Hope tomorrow. Appreciate recs. ?? Diet: Clear Liquid [...] MD Gastroenterology PGY-6 09/12/2020 1:48 PM Pager #[phone] * Carol Reyna MD - 09/10/2020 10:37 PM EST Images from the original note were not included. 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 may [...] Meds) - GI consult for EGD +/- Hope (Consulted, need to discuss) ENDO #[id number] (A1c [...] Carol Reyna MD PGY2, Cardiology S2, Pager [phone] 09/11/2020 Associated attestation - Abiodun Chun MD [...] follow up appointments with her surgeon and machine plate stacker today, who identified her abnormally low hemoglobin [...] components within normal limits RAPID COVID-19 PCR ([facility]/APD/[facility]) TYPE AND SCREEN ([facility]/CGP/KAUSHIK) CBC (WITH DIFF) ABO/RH TYPING ANTIBODY SCREEN [...] Hurtado MD - 09/18/2020 2:08 PM EST [facility] SECTION OF CARDIAC SURGERY OPERATIVE REPORT 09/15/20 ? PATIENT NAME:??Shannan Chaudhary?1940?? MR#:??[id number] ? REFERRING PHYSICIAN:?? Reshma Baig MD [address] [place] [address] ?? PRE-OPERATIVE DIAGNOSIS: Severe aortic stenosis ? POST-OPERATIVE DIAGNOSIS: Same ? PROCEDURE: ?? 1. Implantation of catheter-delivered prosthetic aortic heart valve; percutaneous femoral artery approach (23??mm Bobo SAPIEN3 transcatheter heart valve) ? SURGEON: Pan Hurtado MD ? CHAMBER MAGISTRATE: ?? Esau Rahman M.D. ? ANESTHESIA:? Conscious sedation ? CLINICAL HISTORY:? This is a??80-year-old??woman with aortic stenosis. The patient was evaluated for TAVR and found blane an appropriate candidate and is now taken to the record label internship for transcatheter aortic valve replacement using the [...] performed. The??right??femoral??artery was accessed percutaneously and a 6-Yemeni sheath placed.??Additionally, the??left??common femoral??artery and??left??femoral??vein were accessed percutaneously and 6-Yemeni sheaths placed. ? The patient was systemically heparinized with 100 units per kg of IV heparin to goal ACT greater than 250. A 6-Yemeni pigtail catheter is then passed up from the??left femoral??arterial sheath and positioned in the right coronary sinus. A transvenous pacing lead is then advanced from the left??femoral vein up to the right ventricle. The #6-Yemeni right femoral sheath is then upsized for a 14-Yemeni Bobo E-sheath over a Alina wire. A root angiogram was shot, and the optimal view for visualization of the aortic root was obtained. ? The aortic valve was then crossed using a straight-tip wire and an AL- 2??catheter. The straight wire is exchanged for a long flexible J-tip wire and the AL-2??exchanged for a 6-Yemeni angled pigtail catheter. A stiff wire was positioned in the apex of the LV under NEELY imaging. Care is taken to avoid contact with the ventricular wall with the transition point of the wire to avoid perforation. The C-arm is then changed back to the ideal imaging plane in [place]. ? A 23-mm Bobo SAPIEN3 device is [...] catheters are removed over a wire. The #14-Yemeni introducer sheath is removed, and the??right??common femoral arteriotomy closed percutaneously two??ProGlide closure devices. After holding direct pressure for 20 minutes there was no evidence of bleeding from the closure site. ? Protamine is administered. Hemostasis is obtained. ? All sponge, needle, and instrument counts are reported correct at the end of the case. The patient is taken to record label internship recovery in stable condition at the end of procedure. ? and??I??jointly performed the procedure and all of the critical components ?? Attestation: Case Date: 09/15/2020 PAN HURTADO MD 09/23/2020 * Brief Op Note - Pan Hurtado MD - 09/18/2020 2:08 PM EST Brief Operative Note Patient Name: Shannan Chaudhary : [id number] MR#: [id number] Case Date: 09/15/2020 Surgeon: Surgeon(s) and Role: Panel 1: * Esau Rahman MD - Primary * Dago Merchant PA - Physician Pharmacy Assistant Panel 2: * Pan Hurtado MD - [...] Outcome (s) achieved Date Met: 09/18/20 09/18/20 8720 Coping/Psychosocial Plan Of Care Reviewed With patient [...] Nieto RN - 09/17/2020 12:28 PM EST [facility] CARDIAC REHABILITATION Shannan Chaudhary was seen today regarding participation in the outpatient Phase 2 Cardiac Rehabilitation at [facility]. The patient agrees to a referral to [...] Operative Note Patient Name: Shannan Farleyc : [id number] MR#: [id number] Case Date: 09/15/2020 Surgeon: Surgeon(s) and Role: [...] Hurtado and Amanda present during case, service machine plate stacker Dr Chun, and with the patient and [...] the aortic arch to position across the [place] aortic valve. Rapid ventricular pacing was instituted, [...] DRAINAGE 04/28/2020 CT Guided Drain Peritoneal 04/28/2020 [facility] RAD CAT SCAN ??? HYSTERECTOMY, VAGINAL ??? IR BILIARY TUBE CHECK/CHANGE/REMOVE 06/03/2020 IR Biliary Tube Check/Change/Remove 06/03/2020 Jos Collins, DO [facility] INTERVENTIONL RAD ??? IR CHOLECYSTOSTOMY TUBE PLACEMENT 04/22/2020 IR Cholecystostomy Tube Placement 04/22/2020 Jos Collins, DO [facility] INTERVENTIONL RAD ??? IR DRAIN CHECK/CHANGE/REMOVE 05/19/2020 IR Drain Check/Change/Remove 05/19/2020 Jos Collins, DO [facility] INTERVENTIONL RAD ??? PRO COLONOSCOPY, DIAGNOSTIC N/A 09/12/2020 COLONOSCOPY, DIAGNOSTIC performed by Mane Avila MD at [facility] ENDOSCOPY ??? PRO LAP, CHOLECYSTECTOMY/GRAPH N/A 07/15/2020 LAPAROSCOPIC CHOLECYSTECTOMY WITH CHOLANGIOGRAM (WRVU 11.47) performed by Hong Rosenthal MD at [facility] MAIN OR ??? PRO UPPER GI ENDOSCOPY, BIOPSY N/A 09/12/2020 EGD WITH BIOPSY (WRVU 2.49) performed by Mane Avila MD at [facility] ENDOSCOPY ??? PRO UPPER GI ENDOSCOPY, DIAGNOSTIC N/A 05/03/2020 EGD, UPPER GI ENDOSCOPY performed by Brigitte Graf MD at [facility] ENDOSCOPY Social History: Social History Tobacco Use ??? Smoking status: Never Smoker ??? Smokeless tobacco: Never Used Substance Use Topics ??? Alcohol use: Not Currently Comment: occassional ??? Drug use: Never Social History Social History Narrative ??? Not on file Yarsanism - denies Family History: History reviewed. No [...] 10.65 400 each 3 ??? Blood-Glucose Meter Mis One Touch Ultra [...] Outcome: Ongoing (Interventions Implemented as Appropriate) 09/13/20 5627 Coping/Psychosocial Plan Of Care Reviewed With patient [...] Avila MD - 09/12/2020 10:40 PM EST [facility] Operative Note Patient Name: Shannan Chaudhary : [id number] MR#: [id number] Case Date: 09/12/2020 Surgeon: Surgeon(s) and Role: [...] EST Office of Care Management Initial Assessment Php Developer DAMARIS AVILA RN reviewed record and discussed [...] for doing Advance Directives. Provided copy(ies) of [place] [facility] Advance Directives Taking Steps booklet [...] Specific Information: none Health/Prescription Coverage: Primary Insurance: [employer] [place] Secondary Insurance: MEDICARE Prescription Coverage: [employer] w BCBS or ? Medicare D Preferred Pharmacy: not addressed Other: food and housing secure Primary Care Provider: Reshma Baig MD [phone] Patient/Caregiver Goals of Treatment: feel better, figure this out Potential Needs for Transition of Care: Rehab/SNF: NA Home Health: will discuss; agencies serving her town are [facility]; not anticipated DME: none Dialysis: NA [...] and assist with transition of care planning. Php Developer DAMARIS AVILA RN Pager: [phone] * Consult Note - Mane Avila MD [...] clear liquids only and then NPO at ND - Colonoscopy prep with 238 g miralax mixed into 64 oz of gatorade - Active T&S, maintain 2 large bore IVs - Trend H/H, maintain Hgb >8 - Continue PPI BID The plan as outlined above was discussed with Dr. Avila. The recommendations were discussed with the primary team. Asha Powell MD Gastroenterology PGY-6 09/11/2020 11:34 AM Pager #[phone] I have seen and evaluated the patient with Dr. Powell. I have reviewed the fellow's history during the encounter and I agree with the details as written above. My physical examination confirms the above findings. The assessment and plan were formulated in discussion with me at the time of the encounter and I agree with them as documented. Mane Avila MD, MS cnc laser operator Electronics Engineer, Gastroenterology and Hepatology * Plan of Care [...] 09/17/2020 5:29 AM EST BASIC METABOLIC PANEL Routine 09/17/2020 5:29 AM EST POCT GLUCOSE [...] POCT GLUCOSE Routine 09/13/2020 7:16 AM EST PATHOLOGY SLIDE REVIEW Routine 5:39 AM EST PATHOLOGY SLIDE REVIEW Routine 5:39 AM EST BMP W/FASTING GLUCOSE Routine 09/13/2020 [...] Routine 09/12/2020 2:04 PM EST Colonoscopy, Diagnostic (38100) 09/12/2020 1:32 PM EST upper endo/colo Upper Gi Endoscopy, Biopsy (46638) 09/12/2020 1:32 PM EST upper endo/colo HC [...] SERUM Routine 09/11/2020 11 :47 AM EST PATHOLOGY SLIDE REVIEW Routine 5:36 AM EST BMP W/FASTING GLUCOSE Routine [...] HEPATIC FUNCTION PANEL Routine 5:36 AM EST PATHOLOGY SLIDE REVIEW Routine 5:30 AM EST POCT GLUCOSE Routine 09/11/2020 5:07 AM EST POCT GLUCOSE Routine 09/10/2020 10:45 PM EST PREPARE RBC Routine 09/10/2020 10:40 PM EST RAPID COVID-19 PCR ([facility]/APD/[facility]H) STAT 09/10/2020 9:44 PM EST PREPARE [...] (Bezet) 521 ms MUSE SYSTEM Calculated P Hol[place]el 23 degrees MUSE SYSTEM Calculated R [place] -33 degrees MUSE SYSTEM Calculated T Hol[place] 11 degrees MUSE SYSTEM INTERPRETATION Normal sinus [...] ECHO COMPLETE (10/18/2020 1:51 PM EST) Pathologist [facility] EF 65 HEARTLAB SYSTEM Anatomical Region Laterality Modality Other 10/18/2020 Narrative 10/18/2020 2:36 PM EST Amended Report Procedure: ?Transthoracic Echocardiogram Patient: ?HEIDY SHANNAN A ? (Age): 1940(80y) Med Rec#: ? [id number] ?Sex: ?F ? Site Loc: ? DH ?Ht / Wt: ??158(cm)/79(kg) Pt. Loc: ?Echo Lab ?BSA: ?1.81 Study Date: ?? 10/18/2020 ?Pt. Type: Outpatient Tape: ? Referring: Pan Hurtado Reading: Fang Law ([id number]) Aircraft Launch And Recovery Technician: Wilfredo Santiago RDCS Diagnosis: *Presence of prosthetic [...] Vmax ?1.19 ? m/sec ? MV deceleration ifex283.35 ? msec ? MV A-wave Vmax ?1.68 [...] ? Mid-Inferior ?Normal ? Mid-Inferoseptal ?Normal ? [place]-Septal ? Normal ? [place]-Anterior ? Normal ? [place]-Lateral ?Normal ? [place]-Inferior ? Normal ? [place]-Tip ?Normal ? This report has been electronically signed by: Fang Law MD ? 10/18/2020 14:41:12 Images reviewed and interpretation verified [facility] Cardiac Ultrasound Laboratory Procedure Note Fang Law MD - 10/18/2020 Amended Report Procedure: Transthoracic Echocardiogram Patient: HEIDY ANDERSON(Age): 1940(80y) Med Rec#: [id number] Sex: F Site Loc: [facility] Ht / Wt: 158(cm)/79(kg) Pt. Loc: Echo Lab BSA: 1.81 Study Date: 10/18/2020 Pt. Type: Outpatient Tape: Referring: Pan Hurtado Reading: Fang Law ([id number]) Aircraft Launch And Recovery Technician: Wilfredo Santiago DAVID Diagnosis: *Presence of prosthetic heart valve (Z95.2) [...] MV E-wave Vmax 1.19 m/sec MV deceleration [id number] msec MV A-wave Vmax 1.68 m/sec MV [...] Normal Mid-Posterolateral Normal Mid-Inferior Normal Mid-Inferoseptal Normal [place]-Septal Normal [place]-Anterior Normal [place]-Lateral Normal [place]-Inferior Normal [place]-Tip Normal This report has been electronically signed by: Fang Law MD 10/18/2020 14:41:12 Images reviewed and interpretation verified [facility] Cardiac Ultrasound Laboratory Pan Hurtado MD ECHO ORDERABLES * (ABNORMAL) Comprehensive metabolic panel (non-fasting) (10/18/2020 11:52 AM EST) Glucose 302(H) 65 - 199 mg/dL [facility] Comment:Diabetes: >=200 mg/d L plus symptoms Blood Urea Nitrogen 18 8 - 18 mg/dL [facility] Creatinine 0.92 0.70 - 1.20 mg/dL [facility] Sodium 139 135 - 145 mmol/L [facility] Potassium 4.5 3.5 - 5.0 mmol/L [facility] Comment: Please note: ??Patients with WBC >100,000 may have falsely elevated Potassium levels. ??For accurate Potassium quantification in these patients send serum separator tube (gold top) for subsequent determinations. ??Contact the Clinical Chemistry Laboratory if there are any questions. Chloride 104 98 - 107 mmol/L [facility] Carbon Dioxide 23 22 - 31 mmol/L [facility] Anion Gap 12 5 - 15 mmol/L [facility] Calcium 9.3 8.5 - 10.5 mg/dL [facility] Protein, Total 6.9 6.1 - 8.0 gm/dL [facility] Albumin 4.5 3.2 - 5.2 gm/dL [facility] Aspartate Aminotransferase 36(H) 0 - 30 unit/L [facility] Alanine Aminotransferase 44(H) 0 - 30 unit/L [facility] Alkaline Phosphatase 125(H) 35 - 105 unit/L [facility] Bilirubin, Total 0.7 0.2 - 1.3 mg/dL [facility] Est Glomerular Filtration Rate 59(L) >=60 mL/min/1. 73 m?? [facility] Comment: This patient? s [...] MD CHEMISTRY ORDERABL ES Performing Organization Address City/[facility]/ZIP Co de Phone Number [facility] [place] [address] * (ABNORMAL) POCT Glucose (09/18/2020 12:21 PM EST) Glucose, POC 235(H) 65 - 199 mg/dL [facility] Comment: Supplemental ranges: <140 mg/dL before meals <180 mg/dL all other times of the day Blood specimen (specimen) 09/18/2020 12:21 PM EST 09/18/2020 12:21 PM EST Pan Hurtado MD POINT OF CARE TEST ORDERABLES [facility] [place] [address] * (ABNORMAL) POCT Glucose (09/18/2020 7:49 AM EST) Glucose, POC 207(H) 65 - 199 mg/dL [facility] Comment: Supplemental ranges: <140 mg/dL before meals <180 mg/dL all other times of the day Blood specimen (specimen) 09/18/2020 7:49 AM EST 09/18/2020 7:49 AM EST Pan Hurtado MD POINT OF CARE TEST ORDERABLES Performing Organization Address City/State/[facility] Co de Phone Number [facility] [place] [address] * (ABNORMAL) Hemogram (09/18/2020 5:35 AM EST) White Blood Cell 7.1 4.0 - 9.5 x10(3)/mc L [facility] Red Blood Cell 3.47(L) 4.00 - 5.21 x10(6)/mc L [facility] Hemoglobin 8.2(L) 11.7 - 15.5 gm/dL [facility] Hematocrit 27.2(L) 35.7 - 45.8 % [facility] Mean Cell Volume 78.4(L) 82.6 - 94.4 fL [facility] Mean Cell Hemoglobin 23.6(L) 27.1 - 32.0 pg [facility] Mean Cell Hemoglobin Concentration 30.1(L) 31.7 - 35.0 gm/dL [facility] Platelet 152 145 - 357 x10(3)/mc L [facility] RDW Standard Deviation 71.8(H) 37.0 - 46.0 fL [facility] RDW coefficient of variation 26.5(H) 11.5 - 14.1 % [facility] Mean Platelet Volume 10.7 7.6 - 12.9 fL [facility] NRBC% auto 0.0 % [facility] NRBC Absolute 0.000 0.000 - 0.000 x10(3)/ L [facility] Blood specimen (specimen) 09/18/2020 5:35 AM EST 09/18/2020 5:47 AM EST Narrative Resulting Agency Comment Spec In Lab Pan Hurtado MD HEMATOLOGY ORDERAB LES Performing Organization Address City/State/[facility] Co de Phone Number [facility] [place] [address] * POCT Glucose (09/18/2020 4:00 AM EST) Glucose, POC 148 65 - 199 mg/dL [facility] Comment: Supplemental ranges: <140 mg/dL before meals <180 mg/dL all other times of the day Blood specimen (specimen) 09/18/2020 4:00 AM EST 09/18/2020 4:00 AM EST Pan Hurtado MD POINT OF CARE TEST ORDERABLES Performing Organization Address [facility] de Phone Number [facility] [place] [address] * (ABNORMAL) POCT Glucose (09/18/2020 12:55 AM EST) Glucose, POC 207(H) 65 - 199 mg/dL [facility] Comment: Supplemental ranges: <140 mg/dL before meals <180 mg/dL all other times of the day Blood specimen (specimen) 09/18/2020 12:55 AM EST 09/18/2020 12:55 AM EST Pan Hurtado MD POINT OF CARE TEST ORDERABLES Performing Organization Address [facility] de Phone Number [facility] [place] [address] * (ABNORMAL) POCT Glucose (09/17/2020 7:42 PM EST) Glucose, POC 217(H) 65 - 199 mg/dL [facility] Comment: Supplemental ranges: <140 mg/dL before meals <180 mg/dL all other times of the day Blood specimen (specimen) 09/17/2020 7:42 PM EST 09/17/2020 7:42 PM EST Pan Hurtado MD POINT OF CARE TEST ORDERABLES Performing Organization Address [facility] Co de Phone Number [facility] [place] [address] * POCT Glucose (09/17/2020 4:17 PM EST) Glucose, POC 165 65 - 199 mg/dL [facility] Comment: Supplemental ranges: <140 mg/dL before meals <180 mg/dL all other times of the day Blood specimen (specimen) 09/17/2020 4:17 PM EST 09/17/2020 4:17 PM EST Pan Hurtado MD POINT OF CARE TEST ORDERABLES Performing Organization Address [facility] de Phone Number [facility] [place] [address] * POCT Glucose (09/17/2020 3:00 PM EST) Glucose, POC 178 65 - 199 mg/dL [facility] Comment: Supplemental ranges: <140 mg/dL before meals <180 mg/dL all other times of the day Blood specimen (specimen) 09/17/2020 3:00 PM EST 09/17/2020 3:00 PM EST Pan Hurtado MD POINT OF CARE TEST ORDERABLES Performing Organization Address [facility] de Phone Number [facility] [place] [address] * (ABNORMAL) POCT Glucose (09/17/2020 11:28 AM EST) Glucose, POC 251(H) 65 - 199 mg/dL [facility] Comment: Supplemental ranges: <140 mg/dL before meals <180 mg/dL all other times of the day Blood specimen (specimen) 09/17/2020 11:28 AM EST 09/17/2020 11:28 AM EST Pan Hurtado MD POINT OF CARE TEST ORDERABLES Performing Organization Address City/[facility] Co de Phone Number [facility] [place] [address] * EKG 12 Lead (09/17/2020 9:03 AM EST) [facility] Ventricular rate 89 BPM MUSE SYSTEM Atrial Rate 89 BPM MUSE SYSTEM P-R Interval 160 ms MUSE SYSTEM QRS Duration 134 ms MUSE SYSTEM Q-T Interval 448 ms MUSE SYSTEM QTC Calculated (Bezet) 545 ms MUSE SYSTEM Calculated P Holmd[place] 36 degrees MUSE SYSTEM Calculated R [place] -41 degrees MUSE SYSTEM Calculated T [place] -3 degrees MUSE SYSTEM INTERPRETATION Normal sinus rhythm Left atrial enlargement Left axis deviation Right bundle branch block Abnormal ECG When compared with ECG of 16-SEP-2020 08:57, QRS axis Shifted left Confirmed by MD Amelie, Eusebio Sheltno ([id number]) on 09/17/2020 12:57:01 PM MUSE SYSTEM 09/17/2020 9:03 AM EST 09/17/2020 12:57 PM EST Almaz Carias APRN ECG ORDERABLES MUSE SYSTEM * POCT Glucose (09/17/2020 7:39 AM EST) [facility] Glucose, POC 151 65 - 199 mg/dL [facility] Comment: Supplemental ranges: <140 mg/dL before meals <180 mg/dL all other times of the day Blood specimen (specimen) 09/17/2020 7:39 AM EST 09/17/2020 7:39 AM EST Pan Hurtado MD POINT OF CARE TEST ORDERABLES [facility] [place] [address] * (ABNORMAL) Differential, Automated (09/17/2020 5:29 AM EST) [facility] Neutrophil % 77.9 % [facility] Neutrophil Absolute 7.13(H) 1.70 - 6.10 x10(3)/mc L [facility] Lymph % 10.2 % [facility] Lymphocytes Abs 0.9 0.9 - 3.2 x10(3)/ L [facility] Monocyte % 7.4 % [facility] Monocyte Abs 0.7 0.3 - 0.9 x10(3)/[facility] Eos % 3.5 % [facility] Eosinophils Abs 0.3 0.0 - 0.4 x10(3)/[facility] LABOR[facility] Basophil % 0.5 % [facility] Baso Absolute 0.0 0.0 - 0.1 x10(3)/[facility] Immature Gran % 0.50 % [facility] Comment: Immature granulocytes(IG's)percentage and absolute count will include metamyelocytes, myelocytes, and promyelocytes. Blood smears from CBCs yielding IG's will be scanned manually for concordance. If this scan disagrees with the automated IG or if promyelocytes are noted, a manual differential will be performed. Immature Gran Absolute 0.05(H) 0.00 - 0.04 x10(3)/[facility] Blood specimen (specimen) 09/17/2020 5:29 AM EST 09/17/2020 5:41 AM EST Narrative Resulting Agency Comment Spec In Lab Almaz Carias MANAGER NEW PRODUCT HEMATOLOGY ORDERAB LES Performing Organization Address City/State/[facility] Co de Phone Number [facility] [place] [address] * (ABNORMAL) Hemogram (09/17/2020 5:29 AM EST) White Blood Cell 9.2 4.0 - 9.5 x10(3)/[facility] LAB[facility] Red Blood Cell 3.78(L) 4.00 - 5.21 x10(6)/[facility] Hemoglobin 8.7(L) 11.7 - 15.5 gm/dL [facility] Hematocrit 28.8(L) 35.7 - 45.8 % [facility] Mean Cell Volume 76.2(L) 82.6 - 94.4 fL [facility] [facility] Mean Cell Hemoglobin 23.0(L) 27.1 - 32.0 pg [facility] Mean Cell Hemoglobin Concentration 30.2(L) 31.7 - 35.0 gm/dL [facility] Platelet 161 145 - 357 x10(3)/mc L [facility] RDW Standard Deviation 67.0(H) 37.0 - 46.0 fL [facility] RDW coefficient of variation 26.0(H) 11.5 - 14.1 % [facility] Mean Platelet Volume 9.9 7.6 - 12.9 fL [facility] NRBC% auto 0.0 % [facility] NRBC Absolute 0.000 0.000 - 0.000 x10(3)/mc L [facility] Blood specimen (specimen) 09/17/2020 5:29 AM EST 09/17/2020 5:41 AM EST Narrative Resulting Agency Comment Spec In Lab Almaz Carias OBI HEMATOLOGY ORDERAB LES Performing Organization Address City/State/[facility] Co de Phone Number [facility] [place] [address] * (ABNORMAL) Basic Metabolic Panel (non-fasting) (09/17/2020 5:29 AM EST) Glucose 146 65 - 199 mg/dL [facility] Comment:Diabetes: >=200 mg/d L plus symptoms Blood Urea Nitrogen 15 8 - 18 mg/dL [facility] Creatinine 0.93 0.70 - 1.20 mg/dL [facility] Sodium 139 135 - 145 mmol/L [facility] Potassium 3.9 3.5 - 5.0 mmol/L [facility] Comment: Please note: ??Patients with WBC >100,000 may have falsely elevated Potassium levels. ??For accurate Potassium quantification in these patients send serum separator tube (gold top) for subsequent determinations. ??Contact the Clinical Chemistry Laboratory if there are any questions. Chloride 108(H) 98 - 107 mmol/L [facility] Carbon Dioxide 21(L) 22 - 31 mmol/L [facility] Anion Gap 10 5 - 15 mmol/L [facility] Calcium 8.3(L) 8.5 - 10.5 mg/dL [facility] Est Glomerular Filtration Rate 58(L) >=60 mL/min/1. 73 m?? [facility] Comment: This patient? s [...] Lab Almaz Carias OBI CHEMISTRY ORDERABL ES [facility] [place] [address] * (ABNORMAL) Troponin (09/17/2020 5:29 AM EST) Troponin-T 0.02(H) 0.00 - 0.00 ng/mL [facility] Comment: The 99th percentile for Troponin T is less than 0.01 ng/mL, any detectable cTnT concentration using this assay should be considered elevated. According to the third universal definition of myocardial infarction the following criteria with a clinical presentation consistent with acute myocardial ischemia meets the diagnosis for a myocardial infarction ([place]). Detection of a rise and/or fall of cTnT, with at least one value greater than the 99th percentile (> or = 0.01) and with at least one of the following ?? Symptoms of ischemia ?? New or presumed new significant BV-clrrjkt-Q wave (ST-T) changes or new left bundle [...] additional sample may be indicated. Reference: Third [place] Definition of Myocardial Infarction. Journal of the [place] [employer] 2012;60:1581-98 Blood specimen (specimen) 09/17/2020 5:29 AM EST 09/17/2020 5:41 AM EST Narrative Resulting Agency Comment Spec In Lab Almaz Carias APRN CHEMISTRY ORDERABL ES Performing Organization Address [facility]/ZIP Co de Phone Number [facility] [place] [address] * POCT Glucose (09/17/2020 3:28 AM EST) Glucose, POC 150 65 - 199 mg/dL [facility] Comment: Supplemental ranges: <140 mg/dL before meals <180 mg/dL all other times of the day Blood specimen (specimen) 09/17/2020 3:28 AM EST 09/17/2020 3:28 AM EST Pan Hurtado MD POINT OF CARE TEST ORDERABLES [facility] [place] [address] * POCT Glucose (09/17/2020 12:02 AM EST) Glucose, POC 159 65 - 199 mg/dL [facility] Comment: Supplemental ranges: <140 mg/dL before meals <180 mg/dL all other times of the day Blood specimen (specimen) 09/17/2020 12:02 AM EST 09/17/2020 12:02 AM EST Pan Hurtado MD POINT OF CARE TEST ORDERABLES Performing Organization Address [facility] Co de Phone Number [facility] [place] [address] * POCT Glucose (09/16/2020 8:47 PM EST) Glucose, POC 190 65 - 199 mg/dL [facility] Comment: Supplemental ranges: <140 mg/dL before meals <180 mg/dL all other times of the day Blood specimen (specimen) 09/16/2020 8:47 PM EST 09/16/2020 8:47 PM EST Pan Hurtado MD POINT OF CARE TEST ORDERABLES Performing Organization Address [facility] Co de Phone Number [facility] [place] [address] * POCT Glucose (09/16/2020 4:00 PM EST) Glucose, POC 186 65 - 199 mg/dL [facility] Comment: Supplemental ranges: <140 mg/dL before meals <180 mg/dL all other times of the day Blood specimen (specimen) 09/16/2020 4:00 PM EST 09/16/2020 4:00 PM EST Pan Hurtado MD POINT OF CARE TEST ORDERABLES Performing Organization Address [facility] Co de Phone Number [facility] [place] [address] * POCT Glucose (09/16/2020 2:11 PM EST) Glucose, POC 181 65 - 199 mg/dL [facility] Comment: Supplemental ranges: <140 mg/dL before meals <180 mg/dL all other times of the day Blood specimen (specimen) 09/16/2020 2:11 PM EST 09/16/2020 2:11 PM EST Pan Hurtado MD POINT OF CARE TEST ORDERABLES [facility] [place] [address] * XR Chest PA & Lateral (Generic) (09/16/2020 1:57 PM EST) Anatomical Region Laterality Modality Chest N/A Digital Radiogra phy Impressions 09/16/2020 2:29 PM EST Expected position and appearance of aortic stent valve. No active cardiopulmonary pathology identified. Thank you for letting us participate in the care of this patient. For questions regarding this report, please contact the number below. ? Narrative 09/16/2020 2:29 PM EST EXAMINATION: XR [...] below. Electronically signed by: Mayte Pollack MD, [facility]([phone]), at 09/16/2020 2:29 PM Almaz Rauschfield [facility] IMG DX ORDERABLES * (ABNORMAL) POCT Glucose (09/16/2020 11:51 AM EST) Glucose, POC 247(H) 65 - 199 mg/dL [facility] Comment: Supplemental ranges: <140 mg/dL before meals <180 mg/dL all other times of the day Blood specimen (specimen) 09/16/2020 11:51 AM EST 09/16/2020 11:51 AM EST Pan Hurtado MD POINT OF CARE TEST ORDERABLES Performing Organization Address [facility] Co de Phone Number [facility] [place] [id number] * EKG 12 Lead (09/16/2020 8:57 AM EST) Ventricular rate 66 BPM MUSE SYSTEM Atrial Rate 66 BPM MUSE SYSTEM P-R Interval 174 ms MUSE SYSTEM QRS Duration 132 ms MUSE SYSTEM Q-T Interval 502 ms MUSE SYSTEM QTC Calculated (Bezet) 526 ms MUSE SYSTEM Calculated P Holmdel 32 degrees MUSE SYSTEM Calculated R Holmdel -17 degrees MUSE SYSTEM Calculated T Holmdel -54 degrees MUSE SYSTEM INTERPRETATION Normal sinus rhythm Right bundle branch block Abnormal ECG When compared with ECG of 16-SEP-2020 05:52, (unconfirmed) No significant change was found Confirmed by MD Ramos Daniel ([id number]) on 09/16/2020 11:26:44 PM MUSE SYSTEM 09/16/2020 8:57 AM EST 09/16/2020 11:26 PM EST Pan Hurtado MD ECG ORDERABLES MUSE SYSTEM * POCT Glucose (09/16/2020 8:20 AM EST) Glucose, POC 119 65 - 199 mg/dL [facility] Comment: Supplemental ranges: <140 mg/dL before meals <180 mg/dL all other times of the day Blood specimen (specimen) 09/16/2020 8:20 AM EST 09/16/2020 8:20 AM EST Pan Hurtado MD POINT OF CARE TEST ORDERABLES Performing Organization Address [facility] Co de Phone Number [facility] [place] [address] * EKG 12 Lead (09/16/2020 5:52 AM EST) Ventricular rate 66 BPM MUSE SYSTEM Atrial Rate 66 BPM MUSE SYSTEM P-R Interval 164 ms MUSE SYSTEM QRS Duration 130 ms MUSE SYSTEM Q-T Interval 496 ms MUSE SYSTEM QTC Calculated (Bezet) 519 ms MUSE SYSTEM Calculated P Holmdel 34 degrees MUSE SYSTEM Calculated R Holmdel -17 degrees MUSE SYSTEM Calculated T Holmdel -16 degrees MUSE SYSTEM INTERPRETATION Normal sinus rhythm Right bundle branch block Abnormal ECG When compared with ECG of 15-SEP-2020 15:18, (unconfirmed) No significant change was found I personally reviewed the tracing and edited the fellows interpretation Confirmed by fellow Anam Cazares ([id number]) on 09/16/2020 4:52:54 PM Confirmed by MD Amelie, Eusebio Shelton ([id number]) on 09/16/2020 7:19:19 PM MUSE SYSTEM 09/16/2020 5:52 AM EST 09/16/2020 7:19 PM EST Pan Hurtado MD ECG ORDERABLES Performing Organization Address City/[facility] Co de Phone Number MUSE SYSTEM * POCT Glucose (09/16/2020 4:07 AM EST) Glucose, POC 132 65 - 199 mg/dL [facility] Comment: Supplemental ranges: <140 mg/dL before meals <180 mg/dL all other times of the day Blood specimen (specimen) 09/16/2020 4:07 AM EST 09/16/2020 4:07 AM EST Pan Hurtado MD POINT OF CARE TEST ORDERABLES [facility] [place] [address] * (ABNORMAL) Differential, Automated (09/16/2020 2:20 AM EST) Neutrophil % 88.7 % [facility] Neutrophil Absolute 15.05(H) 1.70 - 6.10 x10(3)/mc L [facility] Lymph % 4.5 % [facility] Lymphocytes Abs 0.8(L) 0.9 - 3.2 x10(3)/mc L [facility] Monocyte % 5.3 % [facility] Monocyte Abs 0.9 0.3 - 0.9 x10(3)/mc L [facility] Eos % 0.5 % [facility] Eosinophils Abs 0.1 0.0 - 0.4 x10(3)/mc L [facility] Basophil % 0.4 % [facility] Baso Absolute 0.1 0.0 - 0.1 x10(3)/mc L [facility] Immature Gran % 0.60 % [facility] Comment: Immature granulocytes(IG's)percentage and absolute count will include metamyelocytes, myelocytes, and promyelocytes. Blood smears from CBCs yielding IG's will be scanned manually for concordance. If this scan disagrees with the automated IG or if promyelocytes are noted, a manual differential will be performed. Immature Gran Absolute 0.10(H) 0.00 - 0.04 x10(3)/mc L [facility] Blood specimen (specimen) 09/16/2020 2:20 AM EST 09/16/2020 2:30 AM EST Narrative Resulting Agency Comment Spec In Lab Carol Reyna MD HEMATOLOGY ORDERABLES [facility] [place] [address] * (ABNORMAL) Hemogram (09/16/2020 2:20 AM EST) White Blood Cell 17.0(H) 4.0 - 9.5 x10(3)/mc L [facility] Red Blood Cell 4.26 4.00 - 5.21 x10(6)/mc L [facility] Hemoglobin 9.9(L) 11.7 - 15.5 gm/dL [facility] Hematocrit 31.6(L) 35.7 - 45.8 % [facility] Mean Cell Volume 74.2(L) 82.6 - 94.4 fL [facility] Mean Cell Hemoglobin 23.2(L) 27.1 - 32.0 pg [facility] Mean Cell Hemoglobin Concentration 31.3(L) 31.7 - 35.0 gm/dL [facility] Platelet 247 145 - 357 x10(3)/mc L [facility] RDW Standard Deviation 61.8(H) 37.0 - 46.0 fL [facility] RDW coefficient of variation 24.9(H) 11.5 - 14.1 % [facility] Mean Platelet Volume 9.9 7.6 - 12.9 fL [facility] NRBC% auto 0.1 % [facility] NRBC Absolute 0.020(H) 0.000 - 0.000 x10(3)/mc L [facility] Blood specimen (specimen) 09/16/2020 2:20 AM EST 09/16/2020 2:30 AM EST Narrative Resulting Agency Comment Spec In Lab Carol Reyna MD HEMATOLOGY ORDERABLES [facility] [place] [address] * Magnesium (09/16/2020 2:20 AM EST) Magnesium 0.80 0.69 - 1.07 mmol/L [facility] Blood specimen (specimen) 09/16/2020 2:20 AM EST 09/16/2020 2:30 AM EST Narrative Resulting Agency Comment Spec In Lab Amarilys Cerna MD CHEMISTRY ORDERABLES [facility] [place] [address] * (ABNORMAL) BMP w/fasting Glucose (09/16/2020 2:20 AM EST) Glucose Fasting 136(H) 65 - 99 mg/dL [facility] Comment: ?Fasting* Glucose Interpretive Criteria Normal [...] of Diabetes Mellitus, Position Statement from the [place] [employer]. ??Diabetes Care, Volume 33, Supplement 1, Aug 2009 Blood Urea Nitrogen 18 8 - 18 mg/dL [facility] Creatinine 0.99 0.70 - 1.20 mg/dL [facility] Sodium 137 135 - 145 mmol/L [facility] Potassium 4.0 3.5 - 5.0 mmol/L [facility] Comment: Please note: ??Patients with WBC >100,000 may have falsely elevated Potassium levels. ??For accurate Potassium quantification in these patients send serum separator tube (gold top) for subsequent determinations. ??Contact the Clinical Chemistry Laboratory if there are any questions. Chloride 107 98 - 107 mmol/L [facility] Carbon Dioxide 22 22 - 31 mmol/L [facility] Anion Gap 8 5 - 15 mmol/L [facility] Calcium 8.3(L) 8.5 - 10.5 mg/dL [facility] Est Glomerular Filtration Rate 54(L) >=60 mL/min/1. 73 m?? [facility] Comment: This patient? s [...] Cerna MD CHEMISTRY ORDERABLES Performing Organization Address [facility] Co de Phone Number [facility] [place] [address] * APTT (09/16/2020 2:20 AM EST) Partial Thromboplastin Time 28 25 - 37 sec [facility] Comment: The PTT is NOT appropriate for heparin monitoring. Use the Anti-Xa level for heparin monitoring (HEP UFH) or LMWH monitoring (HEP LMW). A PTT less than 37 seconds generally indicates adequate hemostasis. Blood specimen (specimen) 09/16/2020 2:20 AM EST 09/16/2020 2:30 AM EST Narrative Resulting Agency Comment Spec In Lab Amarilys eCrna MD HEMATOLOGY ORDERABLE S Performing Organization Address City/[facility]/ZIP Co de Phone Number [facility] [place] [address] * (ABNORMAL) Prothrombin Time (09/16/2020 2:20 AM EST) Prothrombin Time 13.3(H) 9.4 - 12.5 sec [facility] International Normalization Ratio 1.2 [facility] Comment: An INR [...] MD HEMATOLOGY ORDERABLE S Performing Organization Address [facility] Co de Phone Number [facility] [place] [address] * POCT Glucose (09/15/2020 11:15 PM EST) Glucose, POC 146 65 - 199 mg/dL [facility] Comment: Supplemental ranges: <140 mg/dL before meals <180 mg/dL all other times of the day Blood specimen (specimen) 09/15/2020 11:15 PM EST 09/15/2020 11:15 PM EST Pan Hurtado MD POINT OF CARE TEST ORDERABLES Performing Organization Address [facility] Co de Phone Number [facility] [place] [address] * (ABNORMAL) POCT Glucose (09/15/2020 7:59 PM EST) Glucose, POC 200(H) 65 - 199 mg/dL [facility] Comment: Supplemental ranges: <140 mg/dL before meals <180 mg/dL all other times of the day Blood specimen (specimen) 09/15/2020 7:59 PM EST 09/15/2020 7:59 PM EST Pan Hurtado MD POINT OF CARE TEST ORDERABLES [facility] [place] [address] * (ABNORMAL) Hemogram (09/15/2020 3:40 PM EST) White Blood Cell 8.6 4.0 - 9.5 x10(3)/[facility] Red Blood Cell 4.46 4.00 - 5.21 x10(6)/[facility] Hemoglobin 10.1(L) 11.7 - 15.5 gm/dL [facility] Hematocrit 33.9(L) 35.7 - 45.8 % [facility] Mean Cell Volume 76.0(L) 82.6 - 94.4 fL [facility] Mean Cell Hemoglobin 22.6(L) 27.1 - 32.0 pg [facility] Mean Cell Hemoglobin Concentration 29.8(L) 31.7 - 35.0 gm/dL [facility] Platelet 194 145 - 357 x10(3)/[facility] RDW Standard Deviation 64.4(H) 37.0 - 46.0 fL [facility] RDW coefficient of variation 25.1(H) 11.5 - 14.1 % [facility] Mean Platelet Volume 10.4 7.6 - 12.9 fL [facility] NRBC% auto 0.7 % [facility] NRBC Absolute 0.060(H) 0.000 - 0.000 x10(3)/ L [facility] Blood specimen (specimen) 09/15/2020 3:40 PM EST 09/15/2020 4:21 PM EST Narrative Resulting Agency Comment Spec In Lab Abiodun Chun MD HEMATOLOGY ORDERABLE S Performing Organization Address City/[facility]/ZIP Co de Phone Number [facility] [place] [address] * POCT Glucose (09/15/2020 3:28 PM EST) Pathologist [facility] Glucose, POC 180 65 - 199 mg/dL [facility] Comment: Supplemental ranges: <140 mg/dL before meals <180 mg/dL all other times of the day Blood specimen (specimen) 09/15/2020 3:28 PM EST 09/15/2020 3:28 PM EST Pan Hurtado MD POINT OF CARE TEST ORDERABLES Performing Organization Address [facility] Co de Phone Number [facility] [place] [address] * ECHO COMPLETE (09/15/2020 3:24 PM EST) EF 70 HEARTLAB SYSTEM Anatomical Region Laterality Modality Other 09/15/2020 Narrative 09/16/2020 8:00 AM EST Procedure: ?Transthoracic Echocardiogram Patient: ?HEIDY ASHER A ? (Age): 1940(80y) Med Rec#: ? [id number] ?Sex: ?F ? Site Loc: ? [facility] ?Ht / Wt: ??158(cm)/78(kg) Pt. Loc: ?[employer] ?BSA: ?1.8 Study Date: ?? 09/15/2020 ?Pt. Type: Inpatient Tape: ? 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 Type: Inpatient Tape: Referring: Esau Rahman Reading: Jos Wheeler ([id number]) Aircraft Launch And Recovery Technician: Danie Huff Diagnosis: *Nonrheumatic aortic (valve) stenosis [...] 09/15/2020 16:21:34 Images reviewed and interpretation verified [facility] Cardiac Ultrasound Laboratory Abiodun Chun MD ECHO ORDERABLES * EKG 12 Lead (09/15/2020 3:18 PM EST) Ventricular rate 69 BPM MUSE SYSTEM Atrial Rate 69 BPM MUSE SYSTEM P-R Interval 156 ms MUSE SYSTEM QRS Duration 136 ms MUSE SYSTEM Q-T Interval 510 ms MUSE SYSTEM QTC Calculated (Bezet) 546 ms MUSE SYSTEM Calculated P Holmdel 50 degrees MUSE SYSTEM Calculated R Holmdel 94 degrees MUSE SYSTEM Calculated T Holmdel -21 degrees MUSE SYSTEM INTERPRETATION Normal sinus rhythm Right bundle branch block T wave abnormality, consider inferior ischemia Abnormal ECG When compared with ECG of 10-SEP-2020 13:18, Nonspecific T wave abnormality no longer evident in Anterolateral leads QT has lengthened Confirmed by MD Richard, Alvin ([id number]) on 09/16/2020 11:17:42 PM MUSE SYSTEM 09/15/2020 3:18 PM EST 09/16/2020 11:17 PM EST Abiodun Chun MD ECG ORDERABLES MUSE SYSTEM * CARDIAC CATHETERIZATION (09/15/2020 3:15 PM EST) Anatomical Region Laterality Modality Other Narrative 09/16/2020 6:34 PM EST ?[facility] ? Cardiac Catheterization/Intervention Report ? Patient Name: SHANNAN CHAUDHARY A. ? Procedure Date: 09/15/2020 ? A #: [id number] ? Primary Physician: Barbie, Esau Escobar ? Case #: [id number] ? File Name: [id number] ? Catheterization Order Number: [id number] ? [facility] ? Final Report [place], [place] ? Patient Name: ? SHANNAN A. HEIDY ? ID#: ?[id number] ? : ?1940 ? Procedure Date: ? September 15, 2020 ? Case #: ? [id number] ? Room: ? 6 ? Case Physicians: ?Esau Rahman M.D. ?Start: ?13:45 ?Pna Hurtado M.D. ? Admission: ??09/10/2020 ? Discharge: ??09/18/2020 ? Referring Physician: ??Reshma Baig M.D. ? 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 [...] dose administered prior to arrival in the record label internship. ?Recommended anti-platelet/anti-thrombotic regimen: ?Continue clopidogrel 75 mg daily for 3 months then stop. ?Custom Protocol: After plavix is stopped, restart asa 81 mg daily. ?These recommendations are made at the time of the intervention. Patient ?and provider preferences or a changing clinical situation may require ?modification of this regimen. Consult [facility] Interventional Cardiology for ?questions. ? Conclusions: ?* [...] ?greater than 250 seconds) followed by the [facility] e-sheath (the sheath is 14 ?Fr for [...] the aortic arch ?to position across the [place] aortic valve. Rapid ventricular pacing was ?instituted, [...] catheterization, ?aortic root aortogram, temporary pacemaker in record label internship, arterial line / ?sheath insert, venous line / sheath insert, transesophageal echo during ?cath, ABG, TAVR, access site angiography and vascular ultrasound. ?Pan Hurtado M.D. performed the left heart catheterization, aortic ?root aortogram, temporary pacemaker in record label internship, arterial line / sheath ?insert, venous line / sheath insert, transesophageal echo during cath, ABG ?and TAVR. ? Esau J Coylewright, ? M.D. ? Electronically Signed by: Esau J Coylewright, M.D. ? Report Finalized: 09/16/2020 ??18:29 ? Report Last Ammended: 10/08/2020 ??11:00 ? Procedure Note Esau Rahman MD - 10/08/2020 [facility] Cardiac Catheterization/Intervention Report Patient Name: SHANNAN CHAUDHARY Procedure Date: 09/15/2020 A #: [id number] Primary Physician: Esau Rahman Case #: [id number] File Name: [id number] Catheterization Order Number: [id number] [facility] FinalReport [place], [place] Patient Name: SHANNAN CHAUDHARY ID#:[id number] :1940 Procedure Date: September 15, 2020 Case #: [id number] Room: 6 Case Physicians: Esau Rahman M.D. Start: 13:45 Pan Hurtado M.D. Admission:09/10/2020 Discharge:09/18/2020 Referring Physician: Reshma Baig M.D. Procedures: * Left Heart Catheterization * Aortic Root Aortogram * Transcatheter Aortic Valve Replacement * Temporary Pacemaker Insertion In Electric Engine Mechanic * Arterial Line / Sheath Insert * [...] patient was designated asASA Class IV. The [facility] clinical frailty scale is 5: [...] Bobo Jemma 3 Ultra 23 mm THV (s/a=[id number]) transcathetervalve was inserted using standard technique. Protamine [...] dose administered prior to arrival in the record label internship. Recommended anti-platelet/anti-thrombotic regimen: Continue clopidogrel 75 mg daily for 3 months then stop. Custom Protocol: After plavix is stopped, restart asa 81 mg daily. These recommendations are made at the time of the intervention.Patient and provider preferences or a changing clinical situation mayrequire modification of this regimen. Consult [facility] Interventional Cardiologyfor questions. Conclusions: * Severe aortic [...] around the aorticarch to position across the [place] aortic valve. Rapid ventricular pacingwas instituted, and [...] heartcatheterization, aortic root aortogram, temporary pacemaker in record label internship, arterial line/ sheath insert, venous line / sheath insert, transesophageal echoduring cath, ABG, TAVR, access site angiography and vascular ultrasound. Dr. Pan Hurtado M.D. performed the left heart catheterization,aortic root aortogram, temporary pacemaker in record label internship, arterial line /sheath insert, venous line / sheath insert, transesophageal echo during cath,ABG and TAVR. Esau Mcgarry M.D. Electronically Signed by: Esau Rahman M.D. Report Finalized: 09/16/2020 18:29 Report Last Ammended: 10/08/2020 11:00 Esau Rahman MD CARDIAC CATH JESSICA BLOCK * (ABNORMAL) Point of Care Blood Gas Historical (09/15/2020 2:40 PM EST) pH, POC 7.44 7.35 - 7.45 [facility] pCO2, POC 26(L) 35 - 45 mmHg [facility] pO2, POC 75(L) 85 - 104 mmHg [facility] Base Excess, POC -7.0(L) -3.0 - 3.0 mmol/L [facility] Bicarbonate, POC 17.5(L) 20.0 - 26.0 mmol/L [facility] Sodium, POC 140 135 - 145 mmol/L [facility] POC Potassium 3.8 3.5 - 5.0 mmol/L [facility] POC Hematocrit 29.0(L) 34.0 - 45.0 % [facility] POC Calc Hgb 9.9(L) 11.2 - 15.7 gm/dL [facility] Comment:The calculation of h emoglobin from hematocrit assumes a normal MCHC. POC Bgas Loc CC LAB [facility] Blood specimen (specimen) 09/15/2020 2:40 PM EST 09/16/2020 9:00 AM EST Pan Hurtado MD CHEMISTRY ORDERABL ES Performing Organization Address [facility] Co [place] [address] * Prepare RBC (09/15/2020 2:35 PM EST) Dispensed? Yes [facility] Blood specimen (specimen) 09/15/2020 2:35 PM EST 09/15/2020 2:33 PM EST Abiodun Chun MD BLOOD BANK PRODUCT O RDERABLES Performing Organization Address [facility] [place] [address] * (ABNORMAL) Point of Care Blood Gas Historical (09/15/2020 1:51 PM EST) pH, POC 7.40 7.35 - 7.45 [facility] pCO2, POC 37 35 - 45 mmHg [facility] pO2, POC 71(L) 85 - 104 mmHg [facility] Base Excess, POC -2.0 -3.0 - 3.0 mmol/L [facility] Bicarbonate, POC 22.7 20.0 - 26.0 mmol/L [facility] Sodium, POC 142 135 - 145 mmol/L [facility] POC Potassium 3.7 3.5 - 5.0 mmol/L [facility] POC Hematocrit 25.0(L) 34.0 - 45.0 % [facility] POC Calc Hgb 8.5(L) 11.2 - 15.7 gm/dL [facility] Comment:The calculation of h emoglobin from hematocrit assumes a normal MCHC. POC Bgas Loc CC LAB [facility] Blood specimen (specimen) 09/15/2020 1:51 PM EST 09/16/2020 9:00 AM EST Pan Hurtado MD CHEMISTRY ORDERABL ES Performing Organization Address [facility] Co de Phone Number [facility] [place] [address] * POCT Glucose (09/15/2020 1:50 PM EST) Glucose, POC 151 65 - 199 mg/dL [facility] Comment: Supplemental ranges: <140 mg/dL before meals <180 mg/dL all other times of the day Blood specimen (specimen) 09/15/2020 1:50 PM EST 09/15/2020 1:50 PM EST Abiodun Chun MD POINT OF CARE TEST O RDERABLES Performing Organization Address [facility] Co de Phone Number [facility] [place] [address] * POCT Glucose (09/15/2020 11:40 AM EST) Glucose, POC 176 65 - 199 mg/dL [facility] Comment: Supplemental ranges: <140 mg/dL before meals <180 mg/dL all other times of the day Blood specimen (specimen) 09/15/2020 11:40 AM EST 09/15/2020 11:40 AM EST Abiodun Chun MD POINT OF CARE TEST O RDERATOAN Performing Organization Address City/[facility] Co de Phone Number [facility] [place] [address] * ABORH Recheck Status (09/15/2020 10:09 AM EST) ABORH Type Recheck Completed [facility] Blood specimen (specimen) 09/15/2020 10:09 AM EST 09/15/2020 10:14 AM EST Narrative Resulting Agency Comment Spec In Lab Esau Rahman MD BLOOD BANK LAB OR DERABLES Performing Organization Address [facility]/ZIP Co de Phone Number [facility] [place] [address] * Antibody screen (09/15/2020 10:09 AM EST) Ab Screen Interp Negative [facility] Expires at [id number] on: 09/18/2020 [facility] Blood specimen (specimen) 09/15/2020 10:09 AM EST 09/15/2020 10:14 AM EST Narrative Resulting Agency Comment Spec In Lab Esau Rahman MD BLOOD BANK LAB OR DERABLES Performing Organization Address [facility] Co de Phone Number [facility] [place] [address] * ABO/Rh Typing (09/15/2020 10:09 AM EST) ABORH Type O Pos [facility] Blood specimen (specimen) 09/15/2020 10:09 AM EST 09/15/2020 10:14 AM EST Narrative Resulting Agency Comment Spec In Lab Esau Rahman MD BLOOD BANK LAB OR DERABLES Performing Organization Address [facility] Co de Phone Number [facility] [place] [address] * POCT Glucose (09/15/2020 8:01 AM EST) Glucose, POC 137 65 - 199 mg/dL [facility] Comment: Supplemental ranges: <140 mg/dL before meals <180 mg/dL all other times of the day Blood specimen (specimen) 09/15/2020 8:01 AM EST 09/15/2020 8:01 AM EST Abiodun Chun MD POINT OF CARE TEST O RDERABLES [facility] [place] [address] * (ABNORMAL) Differential, Automated (09/15/2020 4:45 AM EST) Neutrophil % 56.0 % [facility] Neutrophil Absolute 3.84 1.70 - 6.10 x10(3)/ L [facility] Lymph % 27.9 % [facility] Lymphocytes Abs 1.9 0.9 - 3.2 x10(3)/ L [facility] Monocyte % 8.4 % [facility] Monocyte Abs 0.6 0.3 - 0.9 x10(3)/[facility] Eos % 5.5 % [facility] Eosinophils Abs 0.4 0.0 - 0.4 x10(3)/[facility] Basophil % 1.0 % [facility] Baso Absolute 0.1 0.0 - 0.1 x10(3)/ L [facility] Immature Gran % 1.20 % [facility] Comment: Immature granulocytes(IG's)percentage and absolute count will include metamyelocytes, myelocytes, and promyelocytes. Blood smears from CBCs yielding IG's will be scanned manually for concordance. If this scan disagrees with the automated IG or if promyelocytes are noted, a manual differential will be performed. Immature Gran Absolute 0.08(H) 0.00 - 0.04 x10(3)/mc L [facility] Blood specimen (specimen) 09/15/2020 4:45 AM EST 09/15/2020 5:15 AM EST Narrative Resulting Agency Comment Spec In Lab Carol Reyna MD HEMATOLOGY ORDERABLES Performing Organization Address City/[facility]/ZIP Co de Phone Number [facility] [place] [address] * (ABNORMAL) Hemogram (09/15/2020 4:45 AM EST) White Blood Cell 6.9 4.0 - 9.5 x10(3)/[facility] Red Blood Cell 3.93(L) 4.00 - 5.21 x10(6)/mc L [facility] Hemoglobin 8.5(L) 11.7 - 15.5 gm/dL [facility] Hematocrit 28.2(L) 35.7 - 45.8 % [facility] Mean Cell Volume 71.8(L) 82.6 - 94.4 fL [facility] Mean Cell Hemoglobin 21.6(L) 27.1 - 32.0 pg [facility] Mean Cell Hemoglobin Concentration 30.1(L) 31.7 - 35.0 gm/dL [facility] Platelet 316 145 - 357 x10(3)/[facility] RDW Standard Deviation 56.9(H) 37.0 - 46.0 [facility] RDW coefficient of variation 23.0(H) 11.5 - 14.1 % [facility] Mean Platelet Volume 10.2 7.6 - 12.9 fL [facility] NRBC% auto 0.0 % [facility] NRBC Absolute 0.000 0.000 - 0.000 x10(3)/[facility] Blood specimen (specimen) 09/15/2020 4:45 AM EST 09/15/2020 5:15 AM EST Narrative Resulting Agency Comment Spec In Lab Carol Reyna MD HEMATOLOGY ORDERABLES [facility] [place] [address] * Magnesium (09/15/2020 4:45 AM EST) Magnesium 0.92 0.69 - 1.07 mmol/L [facility] Blood specimen (specimen) 09/15/2020 4:45 AM EST 09/15/2020 5:15 AM EST Narrative Resulting Agency Comment Spec In Lab Amarilys Cerna MD CHEMISTRY ORDERABLES [facility] [place] [address] * (ABNORMAL) BMP w/fasting Glucose (09/15/2020 4:45 AM EST) Glucose Fasting 164(H) 65 - 99 mg/dL [facility] Comment: ?Fasting* Glucose Interpretive Criteria Normal [...] of Diabetes Mellitus, Position Statement from the [place] [employer]. ??Diabetes Care, Volume 33, Supplement 1, Aug 2009 Blood Urea Nitrogen 16 8 - 18 mg/dL [facility] Creatinine 0.99 0.70 - 1.20 mg/dL [facility] Sodium 139 135 - 145 mmol/L [facility] Potassium 4.2 3.5 - 5.0 mmol/L [facility] Comment: Please note: ??Patients with WBC >100,000 may have falsely elevated Potassium levels. ??For accurate Potassium quantification in these patients send serum separator tube (gold top) for subsequent determinations. ??Contact the Clinical Chemistry Laboratory if there are any questions. Chloride 106 98 - 107 mmol/L [facility] Carbon Dioxide 24 22 - 31 mmol/L [facility] Anion Gap 9 5 - 15 mmol/L [facility] Calcium 9.0 8.5 - 10.5 mg/dL [facility] Est Glomerular Filtration Rate 54(L) >=60 mL/min/1. 73 m?? [facility] Comment: This patient? s [...] Cerna MD CHEMISTRY ORDERABLES Performing Organization Address [facility]/ZIP Co de Phone Number [facility] [place] [address] * APTT (09/15/2020 4:45 AM EST) Partial Thromboplastin Time 26 25 - 37 sec [facility] Comment: The PTT is NOT appropriate for heparin monitoring. Use the Anti-Xa level for heparin monitoring (HEP UFH) or LMWH monitoring (HEP LMW). A PTT less than 37 seconds generally indicates adequate hemostasis. Blood specimen (specimen) 09/15/2020 4:45 AM EST 09/15/2020 5:15 AM EST Narrative Resulting Agency Comment Spec In Lab Amarilys Cerna MD HEMATOLOGY ORDERABLE S Performing Organization Address City/[facility]/ZIP Co de Phone Number [facility] [place] [address] * Prothrombin Time (09/15/2020 4:45 AM EST) Prothrombin Time 11.2 9.4 - 12.5 sec [facility] International Normalization Ratio 1.0 [facility] Comment: An INR [...] MD HEMATOLOGY ORDERABLE S Performing Organization Address [facility]/ZIP Co de Phone Number [facility] [place] [address] * POCT Glucose (09/15/2020 4:27 AM EST) Glucose, POC 180 65 - 199 mg/dL [facility] Comment: Supplemental ranges: <140 mg/dL before meals <180 mg/dL all other times of the day Blood specimen (specimen) 09/15/2020 4:27 AM EST 09/15/2020 4:27 AM EST Abiodun Chun MD POINT OF CARE TEST O RDERABLES Performing Organization Address [facility]/ZIP Co de Phone Number [facility] [place] [address] * POCT Glucose (09/15/2020 12:07 AM EST) Glucose, POC 189 65 - 199 mg/dL [facility] Comment: Supplemental ranges: <140 mg/dL before meals <180 mg/dL all other times of the day Blood specimen (specimen) 09/15/2020 12:07 AM EST 09/15/2020 12:07 AM EST Abiodun Chun MD POINT OF CARE TEST O RDROBIN Performing Organization Address City/[facility]/ZIP Co de Phone Number [facility] [place] [address] * (ABNORMAL) POCT Glucose (09/14/2020 8:27 PM EST) Glucose, POC 218(H) 65 - 199 mg/dL [facility] Comment: Supplemental ranges: <140 mg/dL before meals <180 mg/dL all other times of the day Blood specimen (specimen) 09/14/2020 8:27 PM EST 09/14/2020 8:27 PM EST Abiodun Chun MD POINT OF CARE TEST O RDERATOAN [facility] [place] [address] * POCT Glucose (09/14/2020 5:13 PM EST) Glucose, POC 177 65 - 199 mg/dL [facility] Comment: Supplemental ranges: <140 mg/dL before meals <180 mg/dL all other times of the day Blood specimen (specimen) 09/14/2020 5:13 PM EST 09/14/2020 5:13 PM EST Abiodun Chun MD POINT OF CARE TEST O ISAIAH [facility] [place] [address] * POCT Glucose (09/14/2020 12:31 PM EST) Glucose, POC 168 65 - 199 mg/dL [facility] Comment: Supplemental ranges: <140 mg/dL before meals <180 mg/dL all other times of the day Blood specimen (specimen) 09/14/2020 12:31 PM EST 09/14/2020 12:31 PM EST Abiodun Chun MD POINT OF CARE TEST O RDERABLES [facility] [place] [address] * CT Angiogram Abdomen & Pelvis w [...] signed by: Jos Collins DO, [facility] ([phone]), at 09/14/2020 1:47 PM Narrative 09/14/2020 1:47 [...] signed by: Raymundo Trivedi MD, [facility] ([phone]), at 09/14/2020 2:29 PM Narrative 09/14/2020 2:29 [...] three sinuses of Valsalva, set equidistant: ?? [place] 9 cranial 5 [id number]-[id number] height: Right: 12.7 mm Left: 14.1 mm [...] the three sinuses of Valsalva, set equidistant: [place] 9 cranial 5 Efqljek-qq-fxaqmfpu height: Right: 12.7 mm Left: 14.1 mm [...] signed by: Raymundo Trivedi MD, [facility]([phone]), at 09/14/2020 2:29 PM Amarilys Cerna MD IMG CT ORDERABLES * POCT Glucose (09/14/2020 7:38 AM EST) [facility] Glucose, POC 169 65 - 199 mg/dL [facility] Comment: Supplemental ranges: <140 mg/dL before meals <180 mg/dL all other times of the day Blood specimen (specimen) 09/14/2020 7:38 AM EST 09/14/2020 7:38 AM EST Abiodun Chun MD POINT OF CARE TEST O RDERABLES [facility] [place] [address] * Scan, Peripheral Blood (09/14/2020 3:51 AM EST) Pathologist [facility] Plat estimate Normal [facility] RBC Morphology Abnormal [facility] Microcyte 1-5 /HPF [facility] Ovalocytes 1-5 /HPF [facility] Blood specimen (specimen) 09/14/2020 3:51 AM EST 09/14/2020 4:09 AM EST Narrative Resulting Agency Comment Spec In Lab Carol Reyna MD HEMATOLOGY ORDERABLES [facility] [place] [address] * (ABNORMAL) Differential, Automated (09/14/2020 3:51 AM EST) Neutrophil % 54.5 % [facility] Neutrophil Absolute 3.56 1.70 - 6.10 x10(3)/ L [facility] Lymph % 27.2 % [facility] Lymphocytes Abs 1.8 0.9 - 3.2 x10(3)/ L [facility] Monocyte % 9.0 % [facility] Monocyte Abs 0.6 0.3 - 0.9 x10(3)/ L [facility] Eos % 7.6 % [facility] Eosinophils Abs 0.5(H) 0.0 - 0.4 x10(3)/[facility] Basophil % 1.1 % [facility] Baso Absolute 0.1 0.0 - 0.1 x10(3)/ L [facility] Immature Gran % 0.60 % [facility] Comment: Immature granulocytes(IG's)percentage and absolute count will include metamyelocytes, myelocytes, and promyelocytes. Blood smears from CBCs yielding IG's will be scanned manually for concordance. If this scan disagrees with the automated IG or if promyelocytes are noted, a manual differential will be performed. Immature Gran Absolute 0.04 0.00 - 0.04 x10(3)/mc L [facility] Blood specimen (specimen) 09/14/2020 3:51 AM EST 09/14/2020 4:09 AM EST Narrative Resulting Agency Comment Spec In Lab Carol Reyna MD HEMATOLOGY ORDERABLES [facility] [place] [address] * (ABNORMAL) Hemogram (09/14/2020 3:51 AM EST) White Blood Cell 6.5 4.0 - 9.5 x10(3)/mc L [facility] Red Blood Cell 3.99(L) 4.00 - 5.21 x10(6)/mc L [facility] Hemoglobin 8.4(L) 11.7 - 15.5 gm/dL [facility] Hematocrit 28.7(L) 35.7 - 45.8 % [facility] Mean Cell Volume 71.9(L) 82.6 - 94.4 fL [facility] Mean Cell Hemoglobin 21.1(L) 27.1 - 32.0 pg [facility] Mean Cell Hemoglobin Concentration 29.3(L) 31.7 - 35.0 gm/dL [facility] Platelet 325 145 - 357 x10(3)/mc L [facility] RDW Standard Deviation 55.1(H) 37.0 - 46.0 [facility] RDW coefficient of variation 22.2(H) 11.5 - 14.1 % [facility] Mean Platelet Volume 10.0 7.6 - 12.9 fL [facility] NRBC% auto 0.3 % [facility] NRBC Absolute 0.020(H) 0.000 - 0.000 x10(3)/mc L [facility] Blood specimen (specimen) 09/14/2020 3:51 AM EST 09/14/2020 4:09 AM EST Narrative Resulting Agency Comment Spec In Lab Carol Reyna MD HEMATOLOGY ORDERABLES [facility] [place] [address] * Magnesium (09/14/2020 3:51 AM EST) [facility] Magnesium 0.96 0.69 - 1.07 mmol/L [facility] Blood specimen (specimen) 09/14/2020 3:51 AM EST 09/14/2020 4:09 AM EST Narrative Resulting Agency Comment Spec In Lab Amarilys Cerna MD CHEMISTRY ORDERABLES Performing Organization Address [facility]/ZIP Co de Phone Number [facility] [place] [address] * (ABNORMAL) Hepatic Function Panel (09/14/2020 3:51 AM EST) [facility] Protein, Total 6.2 6.1 - 8.0 gm/dL [facility] Albumin 4.2 3.2 - 5.2 gm/dL [facility] Aspartate Aminotransferase 24 0 - 30 unit/L [facility] Alanine Aminotransferase 28 0 - 30 unit/L [facility] Alkaline Phosphatase 111(H) 35 - 105 unit/L [facility] Bilirubin, Total 1.0 0.2 - 1.3 mg/dL [facility] Bilirubin, Direct 0.3 0.0 - 0.3 mg/dL [facility] Blood specimen (specimen) 09/14/2020 3:51 AM EST 09/14/2020 4:09 AM EST Narrative Resulting Agency Comment Spec In Lab Amarilys Cerna MD CHEMISTRY ORDERABLES [facility] [place] [address] * (ABNORMAL) BMP w/fasting Glucose (09/14/2020 3:51 AM EST) [facility] Glucose Fasting 159(H) 65 - 99 mg/dL [facility] Comment: ?Fasting* Glucose Interpretive Criteria Normal [...] of Diabetes Mellitus, Position Statement from the [place] [employer]. ??Diabetes Care, Volume 33, Supplement 1, Aug 2009 Blood Urea Nitrogen 13 8 - 18 mg/dL [facility] Creatinine 1.11 0.70 - 1.20 mg/dL [facility] Sodium 140 135 - 145 mmol/L [facility] Potassium 4.4 3.5 - 5.0 mmol/L [facility] Comment: Please note: ??Patients with WBC >100,000 may have falsely elevated Potassium levels. ??For accurate Potassium quantification in these patients send serum separator tube (gold top) for subsequent determinations. ??Contact the Clinical Chemistry Laboratory if there are any questions. Chloride 107 98 - 107 mmol/L [facility] Carbon Dioxide 24 22 - 31 mmol/L [facility] Anion Gap 9 5 - 15 mmol/L [facility] Calcium 8.9 8.5 - 10.5 mg/dL [facility] Est Glomerular Filtration Rate 47(L) >=60 mL/min/1. 73 m?? [facility] Comment: This patient? s [...] Cerna MD CHEMISTRY ORDERABLES Performing Organization Address [facility] Co de Phone Number [facility] [place] [address] * APTT (09/14/2020 3:51 AM EST) Partial Thromboplastin Time 28 25 - 37 sec [facility] Comment: The PTT is NOT appropriate for heparin monitoring. Use the Anti-Xa level for heparin monitoring (HEP UFH) or LMWH monitoring (HEP LMW). A PTT less than 37 seconds generally indicates adequate hemostasis. Blood specimen (specimen) 09/14/2020 3:51 AM EST 09/14/2020 4:09 AM EST Narrative Resulting Agency Comment Spec In Lab Amarilys Cerna MD HEMATOLOGY ORDERABLE S Performing Organization Address [facility] Co de Phone Number [facility] [place] [address] * Prothrombin Time (09/14/2020 3:51 AM EST) Prothrombin Time 12.2 9.4 - 12.5 sec [facility] International Normalization Ratio 1.1 [facility] Comment: An INR [...] Lab Amarilys Cerna MD HEMATOLOGY ORDERABLE S [facility] [place] [address] * POCT Glucose (09/14/2020 3:18 AM EST) Glucose, POC 155 65 - 199 mg/dL [facility] Comment: Supplemental ranges: <140 mg/dL before meals <180 mg/dL all other times of the day Blood specimen (specimen) 09/14/2020 3:18 AM EST 09/14/2020 3:18 AM EST Abiodun Chun MD POINT OF CARE TEST O RDERABLES Performing Organization Address [facility] Co de Phone Number [facility] [place] [address] * POCT Glucose (09/13/2020 11:31 PM EST) Glucose, POC 198 65 - 199 mg/dL [facility] Comment: Supplemental ranges: <140 mg/dL before meals <180 mg/dL all other times of the day Blood specimen (specimen) 09/13/2020 11:31 PM EST 09/13/2020 11:31 PM EST Abiodun Chun MD POINT OF CARE TEST O RDERABLES Performing Organization Address [facility] Co de Phone Number [facility] [place] [address] * ABORH Recheck Status (09/13/2020 10:50 PM EST) ABORH Type Recheck Completed [facility] Blood specimen (specimen) 09/13/2020 10:50 PM EST 09/13/2020 10:58 PM EST Narrative Resulting Agency Comment Spec In Lab Carol Reyna MD BLOOD BANK LAB ORDERABLES Performing Organization Address City/[facility]/ZIP Co de Phone Number [facility] [place] [address] * Antibody screen (09/13/2020 10:50 PM EST) Ab Screen Interp Negative [facility] Expires at [id number] on: 09/16/2020 [facility] Blood specimen (specimen) 09/13/2020 10:50 PM EST 09/13/2020 10:58 PM EST Narrative Resulting Agency Comment Spec In Lab Carol Reyna MD BLOOD BANK LAB ORDERABLES [facility] [place] [address] * ABO/Rh Typing (09/13/2020 10:50 PM EST) ABORH Type O Pos [facility] Blood specimen (specimen) 09/13/2020 10:50 PM EST 09/13/2020 10:58 PM EST Narrative Resulting Agency Comment Spec In Lab Carol Reyna MD BLOOD BANK LAB ORDERABLES [facility] [place] [address] * (ABNORMAL) Hemoglobin and Hematocrit, blood (09/13/2020 10:50 PM EST) Pathologist [facility] Hemoglobin 8.8(L) 11.7 - 15.5 gm/dL [facility] Hematocrit 30.0(L) 35.7 - 45.8 % [facility] Blood specimen (specimen) 09/13/2020 10:50 PM EST 09/13/2020 11:05 PM EST Narrative Resulting Agency Comment Spec In Lab Abiodun Chun MD HEMATOLOGY ORDERABLE S [facility] [place] [address] * (ABNORMAL) POCT Glucose (09/13/2020 8:00 PM EST) Glucose, POC 203(H) 65 - 199 mg/dL [facility] Comment: Supplemental ranges: <140 mg/dL before meals <180 mg/dL all other times of the day Blood specimen (specimen) 09/13/2020 8:00 PM EST 09/13/2020 8:00 PM EST Abiodun Chun MD POINT OF CARE TEST O RDROBIN [facility] [place] [address] * POCT Glucose (09/13/2020 4:43 PM EST) Glucose, POC 192 65 - 199 mg/dL [facility] Comment: Supplemental ranges: <140 mg/dL before meals <180 mg/dL all other times of the day Blood specimen (specimen) 09/13/2020 4:43 PM EST 09/13/2020 4:43 PM EST Abiodun Chun MD POINT OF CARE TEST O ISAIAH Performing Organization Address [facility] Co de Phone Number [facility] [place] [address] * (ABNORMAL) POCT Glucose (09/13/2020 11:37 AM EST) Glucose, POC 212(H) 65 - 199 mg/dL [facility] Comment: Supplemental ranges: <140 mg/dL before meals <180 mg/dL all other times of the day Blood specimen (specimen) 09/13/2020 11:37 AM EST 09/13/2020 11:37 AM EST Abiodun Chun MD POINT OF CARE TEST O ISAIAH Performing Organization Address City/[facility]/ZIP Co de Phone Number [facility] [place] [address] * Potassium (09/13/2020 11:25 AM EST) Potassium 4.2 3.5 - 5.0 mmol/L [facility] MD CHEMISTRY ORDERABL ES Performing Organization Address [facility] de Phone Number [facility] [place] [address] * (ABNORMAL) Hemoglobin and Hematocrit, blood (09/13/2020 11:25 AM EST) Hemoglobin 9.0(L) 11.7 - 15.5 gm/dL [facility] Hematocrit 30.2(L) 35.7 - 45.8 % [facility] Blood specimen (specimen) 09/13/2020 11:25 AM EST 09/13/2020 11:39 AM EST Narrative Resulting Agency Comment Spec In Lab Abiodun Chun MD HEMATOLOGY ORDERABLE S Performing Organization Address [facility] de Phone Number [facility] [place] [address] * POCT Glucose (09/13/2020 7:16 AM EST) Glucose, POC 141 65 - 199 mg/dL [facility] Comment: Supplemental ranges: <140 mg/dL before meals <180 mg/dL all other times of the day Blood specimen (specimen) 09/13/2020 7:16 AM EST 09/13/2020 7:16 AM EST Abiodun Chun MD POINT OF CARE TEST O RDERABLES [facility] [place] [address] * Smear Review Report (09/13/2020 5:39 AM EST) Smear Review Report [id number] ? Location: [facility]; [address] The signing pathologist has (i) examined the relevant preparation(s) for the specimen(s) and (ii) rendered or confirmed the diagnosis(es). . ? Smear Review DIAGNOSIS Peripheral blood, smear review: - Microcytic anemia compatible with iron deficiency (see Discussion). Electronically signed by: ??Evette HARRY, Tracy Conteh Verified: ??09/13/2020 ?Hematopathologist Performed at: ??-[facility] Dept. of [place]ology, [place], [place] DISCUSSION The RBC morphology taken together [...] and peripheral blood smear requested for evaluation. [facility] 09/13/2020 5:39 AM EST Abigail Todd MD HEMATOLOGY ORDERABLE S Performing Organization Address City/[facility]/ZIP Co de Phone Number [facility] [place] [place] [address] * Scan, Peripheral Blood (09/13/2020 5:39 AM EST) [facility] Plat estimate Normal [facility] RBC Morphology Abnormal [facility] Microcyte 1-5 /HPF [facility] Hypochromia Slight [facility] Ovalocytes 6-10 /HPF [facility] Tear Cell 1-5 /HPF [facility] Blood specimen (specimen) 09/13/2020 5:39 AM EST 09/13/2020 5:44 AM EST Narrative Resulting Agency Comment Spec In Lab Carol Reyna MD HEMATOLOGY ORDERABLES Performing Organization Address City/[facility] Co de Phone Number [facility] [place] [place] [address] * Differential, Automated (09/13/2020 5:39 AM EST) [facility] Neutrophil % 59.7 % [facility] Neutrophil Absolute 3.66 1.70 - 6.10 x10(3)/[facility] Lymph % 23.6 % [facility] Lymphocytes Abs 1.4 0.9 - 3.2 x10(3)/[facility] Monocyte % 8.8 % [facility] Monocyte Abs 0.5 0.3 - 0.9 x10(3)/[facility] Eos % 6.8 % [facility] Eosinophils Abs 0.4 0.0 - 0.4 x10(3)/[facility] Basophil % 0.8 % [facility] Baso Absolute 0.0 0.0 - 0.1 x10(3)/[facility] Immature Gran % 0.30 % [facility] Comment: Immature granulocytes(IG's)percentage and absolute count will include metamyelocytes, myelocytes, and promyelocytes. Blood smears from CBCs yielding IG's will be scanned manually for concordance. If this scan disagrees with the automated IG or if promyelocytes are noted, a manual differential will be performed. Immature Gran Absolute 0.02 0.00 - 0.04 x10(3)/[facility] Blood specimen (specimen) 09/13/2020 5:39 AM EST 09/13/2020 5:44 AM EST Narrative Resulting Agency Comment Spec In Lab Carol Reyna MD HEMATOLOGY ORDERABLES [facility] [place] [id number] * (ABNORMAL) Hemogram (09/13/2020 5:39 AM EST) White Blood Cell 6.1 4.0 - 9.5 x10(3)/mc L [facility] Red Blood Cell 4.01 4.00 - 5.21 x10(6)/mc L [facility] Hemoglobin 8.5(L) 11.7 - 15.5 gm/dL [facility] Hematocrit 28.2(L) 35.7 - 45.8 % [facility] Mean Cell Volume 70.3(L) 82.6 - 94.4 fL [facility] Mean Cell Hemoglobin 21.2(L) 27.1 - 32.0 pg [facility] Mean Cell Hemoglobin Concentration 30.1(L) 31.7 - 35.0 gm/dL [facility] Platelet 315 145 - 357 x10(3)/mc L [facility] RDW Standard Deviation 51.5(H) 37.0 - 46.0 fL [facility] RDW coefficient of variation 20.8(H) 11.5 - 14.1 % [facility] Mean Platelet Volume 9.8 7.6 - 12.9 fL [facility] NRBC% auto 0.3 % [facility] NRBC Absolute 0.020(H) 0.000 - 0.000 x10(3)/mc L [facility] Blood specimen (specimen) 09/13/2020 5:39 AM EST 09/13/2020 5:44 AM EST Narrative Resulting Agency Comment Spec In Lab Carol Reyna MD HEMATOLOGY ORDERABLES Performing Organization Address [facility]/ZIP Co de Phone Number [facility] [place] [address] * Magnesium (09/13/2020 5:39 AM EST) Magnesium 1.04 0.69 - 1.07 mmol/L [facility] Blood specimen (specimen) 09/13/2020 5:39 AM EST 09/13/2020 5:44 AM EST Narrative Resulting Agency Comment Spec In Lab Amarilys Cerna MD CHEMISTRY ORDERABLES Performing Organization Address City/[facility]/ZIP Co de Phone Number [facility] [place] [address] * (ABNORMAL) Hepatic Function Panel (09/13/2020 5:39 AM EST) Protein, Total 6.3 6.1 - 8.0 gm/dL [facility] Albumin 4.0 3.2 - 5.2 gm/dL [facility] Aspartate Aminotransferase 41(H) 0 - 30 unit/L [facility] Comment:result rechecked-[place] Alanine Aminotransferase 30 0 - 30 unit/L [facility] Alkaline Phosphatase 110(H) 35 - 105 unit/L [facility] Bilirubin, Total 1.9(H) 0.2 - 1.3 mg/dL [facility] Bilirubin, Direct 0.4(H) 0.0 - 0.3 mg/dL [facility] Blood specimen (specimen) 09/13/2020 5:39 AM EST 09/13/2020 5:44 AM EST Narrative Resulting Agency Comment Spec In Lab Amarilys Cerna MD CHEMISTRY ORDERABLES Performing Organization Address City/State/[facility] Co de Phone Number [facility] [place] [address] * (ABNORMAL) BMP w/fasting Glucose (09/13/2020 5:39 AM EST) Glucose Fasting 136(H) 65 - 99 mg/dL [facility] Comment: ?Fasting* Glucose Interpretive Criteria Normal [...] of Diabetes Mellitus, Position Statement from the [place] [employer]. ??Diabetes Care, Volume 33, Supplement 1, Aug 2009 Blood Urea Nitrogen 12 8 - 18 mg/dL [facility] Creatinine 0.98 0.70 - 1.20 mg/dL [facility] Sodium 141 135 - 145 mmol/L [facility] Potassium 4.3 3.5 - 5.0 mmol/L [facility] Comment: Please note: ??Patients with WBC >100,000 may have falsely elevated Potassium levels. ??For accurate Potassium quantification in these patients send serum separator tube (gold top) for subsequent determinations. ??Contact the Clinical Chemistry Laboratory if there are any questions. Chloride 108(H) 98 - 107 mmol/L [facility] Carbon Dioxide 23 22 - 31 mmol/L [facility] Anion Gap 10 5 - 15 mmol/L [facility] Calcium 8.8 8.5 - 10.5 mg/dL [facility] Est Glomerular Filtration Rate 54(L) >=60 mL/min/1. 73 m?? [facility] Comment: This patient? s [...] In Lab Amarilys Cerna MD CHEMISTRY ORDERABLES [facility] [place] [address] * APTT (09/13/2020 5:39 AM EST) Partial Thromboplastin Time 29 25 - 37 sec [facility] Comment: The PTT is NOT appropriate for heparin monitoring. Use the Anti-Xa level for heparin monitoring (HEP UFH) or LMWH monitoring (HEP LMW). A PTT less than 37 seconds generally indicates adequate hemostasis. Blood specimen (specimen) 09/13/2020 5:39 AM EST 09/13/2020 5:44 AM EST Narrative Resulting Agency Comment Spec In Lab Amarilys Cerna MD HEMATOLOGY ORDERABLE S Performing Organization Address City/[facility]/ZIP Co de Phone Number [facility] [place] [address] * (ABNORMAL) Prothrombin Time (09/13/2020 5:39 AM EST) Prothrombin Time 12.8(H) 9.4 - 12.5 sec [facility] International Normalization Ratio 1.1 [facility] Comment: An INR [...] MD HEMATOLOGY ORDERABLE S Performing Organization Address [facility] Co de Phone Number [facility] [place] [address] * Peripheral Smear Review (09/13/2020 5:39 AM EST) Pathologist [facility] Peripheral Smear Review See Comment [facility] Comment: When completed by the Pathologist, report [id number] will display under Hematopathology Reports. Blood specimen (specimen) 09/13/2020 5:39 AM EST 09/13/2020 5:44 AM EST Narrative Resulting Agency Comment Spec In Lab Abiodun Chun MD HEMATOLOGY ORDERABLE S Performing Organization Address City/[facility] Co de Phone Number [facility] [place] [address] * POCT Glucose (09/13/2020 4:02 AM EST) Glucose, POC 113 65 - 199 mg/dL [facility] Comment: Supplemental ranges: <140 mg/dL before meals <180 mg/dL all other times of the day Blood specimen (specimen) 09/13/2020 4:02 AM EST 09/13/2020 4:02 AM EST Abiodun Chun MD POINT OF CARE TEST O RDERABLES Performing Organization Address [facility] Co de Phone Number [facility] [place] [address] * POCT Glucose (09/12/2020 11:46 PM EST) Glucose, POC 118 65 - 199 mg/dL [facility] Comment: Supplemental ranges: <140 mg/dL before meals <180 mg/dL all other times of the day Blood specimen (specimen) 09/12/2020 11:46 PM EST 09/12/2020 11:46 PM EST Abiodun Chun MD POINT OF CARE TEST O RDERABLES Performing Organization Address [facility] Co de Phone Number [facility] [place] [address] * (ABNORMAL) Hemoglobin and Hematocrit, blood (09/12/2020 10:17 PM EST) [facility] Hemoglobin 8.8(L) 11.7 - 15.5 gm/dL [facility] Hematocrit 29.2(L) 35.7 - 45.8 % [facility] Blood specimen (specimen) 09/12/2020 10:17 PM EST 09/12/2020 10:27 PM EST Narrative Resulting Agency Comment Spec In Lab Abiodun Chun MD HEMATOLOGY ORDERABLE S Performing Organization Address [facility] Co de Phone Number [facility] [place] [address] * Potassium (09/12/2020 10:17 PM EST) Potassium 4.2 3.5 - 5.0 mmol/L [facility] Chun MD CHEMISTRY ORDERABLES Performing Organization Address City/[facility]/ZIP Co de Phone Number [facility] [place] [address] * POCT Glucose (09/12/2020 7:53 PM EST) Glucose, POC 159 65 - 199 mg/dL [facility] Comment: Supplemental ranges: <140 mg/dL before meals <180 mg/dL all other times of the day Blood specimen (specimen) 09/12/2020 7:53 PM EST 09/12/2020 7:53 PM EST Abiodun Chun MD POINT OF CARE TEST O RDERABLES Performing Organization Address [facility] Co de Phone Number [facility] [place] [address] * (ABNORMAL) Hemoglobin and Hematocrit, blood (09/12/2020 7:12 PM EST) Hemoglobin 8.7(L) 11.7 - 15.5 gm/dL [facility] Hematocrit 28.3(L) 35.7 - 45.8 % [facility] Blood specimen (specimen) 09/12/2020 7:12 PM EST 09/12/2020 8:17 PM EST Narrative Resulting Agency Comment Spec In Lab Amarilys Cerna MD HEMATOLOGY ORDERABLE S Performing Organization Address [facility]/ZIP Co de Phone Number [facility] [place] [address] * POCT Glucose (09/12/2020 3:55 PM EST) Glucose, POC 131 65 - 199 mg/dL [facility] Comment: Supplemental ranges: <140 mg/dL before meals <180 mg/dL all other times of the day Blood specimen (specimen) 09/12/2020 3:55 PM EST 09/12/2020 3:55 PM EST Abiodun Chun MD POINT OF CARE TEST O ISAIAH Performing Organization Address [facility] de Phone Number [facility] [place] [address] * Specimen to Pathology (09/12/2020 2:45 PM EST) AP Specimen 09/12/2020 2:45 PM EST 09/12/2020 2:45 PM EST Narrative [facility] - 09/12/2020 2:45 PM EST Specimen requisition ordered. ??Separate Pathology report to follow Abiodun Chun MD PATHOLOGY/CYTOLOGY O ISAIAH Performing Organization Address [facility] de Phone Number [facility] [place] [address] * Surgical Pathology Report (09/12/2020 2:04 PM EST) Pathologist [facility] Final Diagnosis [id number] ? Location: [place] [address]; The signing pathologist has (i) examined the relevant preparation(s) for the specimen(s) and (ii) rendered or confirmed the diagnosis(es). . ?Surgical Pathology DIAGNOSIS Stomach, ??biopsy: Gastric antral and fundic gland mucosa with nonspecific reactive gastropathy. No H. pylori-like microorganism is seen. Electronically signed by: ??Chhaya Sandra MD Verified: ??09/20/2020 ?Pathologist Performed at: ??-[facility] Dept. of Pathology, [place], [place] SPECIMEN(S) SUBMITTED A - gastric biopsies. ??R/O H. Pylori, biopsy (Multiple) CLINICAL INFORMATION [place] SPECIMEN PROCESSING A - Labeled/Fixative: Gastric biopsies, rule out H. pylori, formalin. Quantity/Size: Multiple, ranging from 0.2-0.4 cm. Tissue Description: Soft, dowell tissues. Sections/Processi ng: Submitted en toto ??in 2 cassettes labeled A1-A2. ??sns 09/20/2020 2:05 PM EST [facility] GI Biopsy 09/12/2020 2:04 PM EST 09/12/2020 2:04 PM EST Mane Avila MD PATHOLOGY/CYTOLOGY O RDERABLES Performing Organization Address [facility]/ZIP Co de Phone Number [facility] [place] [address] * Potassium (09/12/2020 1:11 PM EST) Potassium 3.9 3.5 - 5.0 mmol/L [facility] MD CHEMISTRY ORDERABL ES Performing Organization Address [facility]/ZIP Co de Phone Number [facility] [place] [address] * (ABNORMAL) Hemoglobin and Hematocrit, blood (09/12/2020 1:11 PM EST) Hemoglobin 8.4(L) 11.7 - 15.5 gm/dL [facility] Hematocrit 27.9(L) 35.7 - 45.8 % [facility] Blood specimen (specimen) 09/12/2020 1:11 PM EST 09/12/2020 1:17 PM EST Narrative Resulting Agency Comment Spec In Lab Amarilys Cerna MD HEMATOLOGY ORDERABLE S [facility] [place] [address] * UPPER GI ENDOSCOPY (09/12/2020 12:57 PM EST) UPPER GI ENDOSCOPY [facility] Endoscopy Procedure Date: 09/12/2020 12:57 PM ? Patient Name: Shannan Chaudhary ? N: [id number] ? Date of : 1940 ? Age: 80 ? Order #: [id number] ? Instrument Name: [id number] ? Procedure: ? Upper GI endoscopy Indications: ? Iron deficiency anemia Providers: ? Mane Avila MD, Asha Martins ? Sherry, Isabel Pleitez, Harris De Guzman ? Mary Johnson MD: ? Medicines: ? Propofol per Anesthesia [...] * COLONOSCOPY (09/12/2020 12:56 PM EST) COLONOSCOPY [facility] Endoscopy Procedure Date: 09/12/2020 12:56 PM ? Patient Name: Shannan Chaudhary ? Date of : 1940 ? Age: 80 ? Order #: [id number] ? Instrument Name: [id number] ? Procedure: ? Colonoscopy Indications: ? Iron [...] SURGICAL ORD ERABLES [facility] * POCT Glucose (09/12/2020 11:55 AM EST) Glucose, POC 125 65 - 199 mg/dL [facility] Comment: Supplemental ranges: <140 mg/dL before meals <180 mg/dL all other times of the day Blood specimen (specimen) 09/12/2020 11:55 AM EST 09/12/2020 11:55 AM EST Abiodun Chun MD POINT OF CARE TEST O RDERABLES Performing Organization Address [facility] Co de Phone Number [facility] [place] [address] * POCT Glucose (09/12/2020 8:06 AM EST) Glucose, POC 142 65 - 199 mg/dL [facility] Comment: Supplemental ranges: <140 mg/dL before meals <180 mg/dL all other times of the day Blood specimen (specimen) 09/12/2020 8:06 AM EST 09/12/2020 8:06 AM EST Abiodun Chun MD POINT OF CARE TEST O RDERABLES Performing Organization Address [facility] Co de Phone Number [facility] [place] [address] * (ABNORMAL) Hemoglobin and Hematocrit, blood (09/12/2020 7:47 AM EST) Hemoglobin 8.0(L) 11.7 - 15.5 gm/dL [facility] Hematocrit 26.0(L) 35.7 - 45.8 % [facility] Blood specimen (specimen) 09/12/2020 7:47 AM EST 09/12/2020 7:52 AM EST Narrative Resulting Agency Comment Spec In Lab Amarilys Cerna MD HEMATOLOGY ORDERABLE S Performing Organization Address [facility] Co de Phone Number [facility] [place] [address] * POCT Glucose (09/12/2020 4:38 AM EST) Glucose, POC 173 65 - 199 mg/dL [facility] Comment: Supplemental ranges: <140 mg/dL before meals <180 mg/dL all other times of the day Blood specimen (specimen) 09/12/2020 4:38 AM EST 09/12/2020 4:38 AM EST Abiodun Chun MD POINT OF CARE TEST O RDERABLES Performing Organization Address City/[facility]/ZIP Co [place] [address] * Differential, Automated (09/12/2020 1:43 AM EST) Neutrophil % 59.2 % [facility] Neutrophil Absolute 4.62 1.70 - 6.10 x10(3)/[facility] Lymph % 25.0 % [facility] Lymphocytes Abs 2.0 0.9 - 3.2 x10(3)/[facility] Monocyte % 10.8 % [facility] Monocyte Abs 0.8 0.3 - 0.9 x10(3)/[facility] Eos % 3.7 % [facility] Eosinophils Abs 0.3 0.0 - 0.4 x10(3)/[facility] Basophil % 1.0 % [facility] Baso Absolute 0.1 0.0 - 0.1 x10(3)/[facility] Immature Gran % 0.30 % [facility] Comment: Immature granulocytes(IG's)percentage and absolute count will include metamyelocytes, myelocytes, and promyelocytes. Blood smears from CBCs yielding IG's will be scanned manually for concordance. If this scan disagrees with the automated IG or if promyelocytes are noted, a manual differential will be performed. Immature Gran Absolute 0.02 0.00 - 0.04 x10(3)/[facility] Blood specimen (specimen) 09/12/2020 1:43 AM EST 09/12/2020 1:48 AM EST Narrative Resulting Agency Comment Spec In Lab Carol Reyna MD HEMATOLOGY ORDERABLES Performing Organization Address City/[facility]/ZIP Co de Phone [place] [address] * (ABNORMAL) Hemogram (09/12/2020 1:43 AM EST) [facility] White Blood Cell 7.8 4.0 - 9.5 x10(3)/[facility] LABORATORY Red Blood Cell 4.35 4.00 - 5.21 x10(6)/[facility] LABORATORY Hemoglobin 9.3(L) 11.7 - 15.5 gm/dL [facility] LABORATORY Hematocrit 30.8(L) 35.7 - 45.8 % [facility]OR[facility] Mean Cell Volume 70.8(L) 82.6 - 94.4 [facility] LABORATORY Mean Cell Hemoglobin 21.4(L) 27.1 - 32.0 pg [facility] LABORAT[facility] Mean Cell Hemoglobin Concentration 30.2(L) 31.7 - 35.0 gm/dL [facility] LABORATORY Platelet 353 145 - 357 x10(3)/[facility] LABORATORY RDW Standard Deviation 50.0(H) 37.0 - 46.0 [facility] LABORATORY RDW coefficient of variation 19.9(H) 11.5 - 14.1 % [facility] LABORATORY Mean Platelet Volume 10.3 7.6 - 12.9 [facility] LABORATORY NRBC% auto 0.3 % [facility] LABORATORY NRBC Absolute 0.020(H) 0.000 - 0.000 x10(3)/[facility] LABORATORY Blood specimen (specimen) 09/12/2020 1:43 AM EST 09/12/2020 1:48 AM EST Narrative Resulting Agency Comment Spec In Lab Carol Reyna MD HEMATOLOGY ORDERABLES [facility] [place] [address] * Magnesium (09/12/2020 1:43 AM EST) [facility] Magnesium 1.05 0.69 - 1.07 mmol/L [facility]OR[facility] Blood specimen (specimen) 09/12/2020 1:43 AM EST 09/12/2020 1:48 AM EST Narrative Resulting Agency Comment Spec In Lab Amarilys Cerna MD CHEMISTRY ORDERABLES Performing Organization Address [facility] Phone Number [facility] [place] [address] * (ABNORMAL) Hepatic Function Panel (09/12/2020 1:43 AM EST) Pathologist [facility] Protein, Total 7.1 6.1 - 8.0 gm/dL [facility] Albumin 4.5 3.2 - 5.2 gm/dL [facility] Aspartate Aminotransferase 23 0 - 30 unit/L [facility] Alanine Aminotransferase 21 0 - 30 unit/L [facility] Alkaline Phosphatase 120(H) 35 - 105 unit/L [facility] Bilirubin, Total 2.7(H) 0.2 - 1.3 mg/dL [facility] Bilirubin, Direct 0.3 0.0 - 0.3 mg/dL [facility] Blood specimen (specimen) 09/12/2020 1:43 AM EST 09/12/2020 1:48 AM EST Narrative Resulting Agency Comment Spec In Lab Amarilys Cerna MD CHEMISTRY ORDERABLES Performing Organization Address [facility] de Phone Number [facility] [place] [address] * (ABNORMAL) BMP w/fasting Glucose (09/12/2020 1:43 AM EST) Glucose Fasting 136(H) 65 - 99 mg/dL [facility] Comment: ?Fasting* Glucose Interpretive Criteria Normal [...] of Diabetes Mellitus, Position Statement from the [place] [employer]. ??Diabetes Care, Volume 33, Supplement 1, Aug 2009 Blood Urea Nitrogen 17 8 - 18 mg/dL [facility] Creatinine 1.15 0.70 - 1.20 mg/dL [facility] Sodium 140 135 - 145 mmol/L [facility] Comment:result rechecked-KS Potassium 4.2 3.5 - 5.0 mmol/L [facility] Comment: result rechecked-KS Please note: ??Patients with WBC >100,000 may have falsely elevated Potassium levels. ??For accurate Potassium quantification in these patients send serum separator tube (gold top) for subsequent determinations. ??Contact the Clinical Chemistry Laboratory if there are any questions. Chloride 102 98 - 107 mmol/L [facility] LABORATORY Comment:result rechecked-KS Carbon Dioxide 24 22 - 31 mmol/L [facility] Anion Gap 14 5 - 15 mmol/L [facility] Calcium 9.3 8.5 - 10.5 mg/dL [facility] Est Glomerular Filtration Rate 45(L) >=60 mL/min/1. 73 m?? [facility] Comment: This patient? s [...] Cerna MD CHEMISTRY ORDERABLES Performing Organization Address [facility] Co de Phone Number [facility] [place] [address] * APTT (09/12/2020 1:43 AM EST) Partial Thromboplastin Time 25 25 - 37 sec [facility] Comment: The PTT is NOT appropriate for heparin monitoring. Use the Anti-Xa level for heparin monitoring (HEP UFH) or LMWH monitoring (HEP LMW). A PTT less than 37 seconds generally indicates adequate hemostasis. Blood specimen (specimen) 09/12/2020 1:43 AM EST 09/12/2020 1:48 AM EST Narrative Resulting Agency Comment Spec In Lab Amarilys Cerna MD HEMATOLOGY ORDERABLE S Performing Organization Address [facility] de Phone Number [facility] [place] [address] * (ABNORMAL) Prothrombin Time (09/12/2020 1:43 AM EST) Prothrombin Time 12.9(H) 9.4 - 12.5 sec [facility] International Normalization Ratio 1.1 [facility] Comment: An INR [...] MD HEMATOLOGY ORDERABLE S Performing Organization Address [facility] Co de Phone Number [facility] [place] [address] * POCT Glucose (09/11/2020 11:48 PM EST) Glucose, POC 121 65 - 199 mg/dL [facility] Comment: Supplemental ranges: <140 mg/dL before meals <180 mg/dL all other times of the day Blood specimen (specimen) 09/11/2020 11:48 PM EST 09/11/2020 11:48 PM EST Abiodun Chun MD POINT OF CARE TEST O RDERATOAN [facility] [place] [address] * POCT Glucose (09/11/2020 8:19 PM EST) Glucose, POC 179 65 - 199 mg/dL [facility] Comment: Supplemental ranges: <140 mg/dL before meals <180 mg/dL all other times of the day Blood specimen (specimen) 09/11/2020 8:19 PM EST 09/11/2020 8:19 PM EST Abiodun Chun MD POINT OF CARE TEST O ISAIAH [facility] [place] [address] * POCT Glucose (09/11/2020 7:40 PM EST) Glucose, POC 181 65 - 199 mg/dL [facility] Comment: Supplemental ranges: <140 mg/dL before meals <180 mg/dL all other times of the day Blood specimen (specimen) 09/11/2020 7:40 PM EST 09/11/2020 7:40 PM EST Abiodun Chun MD POINT OF CARE TEST O RDERABLES [facility] [place] [address] * (ABNORMAL) Hemoglobin and Hematocrit, blood (09/11/2020 6:22 PM EST) Hemoglobin 8.2(L) 11.7 - 15.5 gm/dL [facility] Hematocrit 26.9(L) 35.7 - 45.8 % [facility] Blood specimen (specimen) 09/11/2020 6:22 PM EST 09/11/2020 6:55 PM EST Narrative Resulting Agency Comment Spec In Lab Amarilys Cerna MD HEMATOLOGY ORDERABLE S [facility] [place] [address] * (ABNORMAL) POCT Glucose (09/11/2020 5:17 PM EST) Glucose, POC 285(H) 65 - 199 mg/dL [facility] Comment: Supplemental ranges: <140 mg/dL before meals <180 mg/dL all other times of the day Blood specimen (specimen) 09/11/2020 5:17 PM EST 09/11/2020 5:17 PM EST Abiodun Chun MD POINT OF CARE TEST O RDERABLES Performing Organization Address City/[facility]/ZIP Co de Phone Number [facility] [place] [address] * POCT Glucose (09/11/2020 12:16 PM EST) Glucose, POC 120 65 - 199 mg/dL [facility] Comment: Supplemental ranges: <140 mg/dL before meals <180 mg/dL all other times of the day Blood specimen (specimen) 09/11/2020 12:16 PM EST 09/11/2020 12:16 PM EST Abiodun Chun MD POINT OF CARE TEST O RDERABLES [facility] [place] [address] * (ABNORMAL) Potassium (09/11/2020 11:47 AM EST) Potassium 3.0(Criti ciera) 3.5 - 5.0 mmol/L [facility] Comment: Called by: miguelina, Read back [...] In Lab Abiodun Chun MD CHEMISTRY ORDERABLES [facility] [place] [address] * (ABNORMAL) Hemoglobin and Hematocrit, blood (09/11/2020 11:47 AM EST) [facility] Hemoglobin 8.4(L) 11.7 - 15.5 gm/dL [facility] Hematocrit 26.8(L) 35.7 - 45.8 % [facility] Blood specimen (specimen) 09/11/2020 11:47 AM EST 09/11/2020 12:19 PM EST Narrative Resulting Agency Comment Spec In Lab Amairlys Cerna MD HEMATOLOGY ORDERABLE S [facility] [place] [address] * (ABNORMAL) Ferritin (09/11/2020 11:47 AM EST) Ferritin 12(L) 30 - 400 ng/mL [facility] Comment: Pediatric reference ranges not verified at [facility], interpret with caution. Reference ranges for females greater than 50 years of age approach values for men, i.e., 30-400 ng/mL. Blood specimen (specimen) 09/11/2020 11:47 AM EST 09/11/2020 12:19 PM EST Narrative Resulting Agency Comment Spec In Lab Abiodun Chun MD CHEMISTRY ORDERABLES Performing Organization Address City/[facility]/ZIP Co de Phone Number [facility] [place] [address] * (ABNORMAL) Iron and TIBC (09/11/2020 11:47 AM EST) Iron 33 30 - 150 mcg/dL [facility] TIBC 494(H) 250 - 450 mcg/dL [facility] Iron Saturation 7(L) 20 - 50 % [facility] Blood specimen (specimen) 09/11/2020 11:47 AM EST 09/11/2020 12:19 PM EST Narrative Resulting Agency Comment Spec In Lab Abiodun Chun MD CHEMISTRY ORDERABLES Performing Organization Address [facility]/ZIP Co de Phone Number [facility] [place] [address] * Scan, Peripheral Blood (09/11/2020 5:36 AM EST) Plat estimate Normal [facility] RBC Morphology Abnormal [facility] Microcyte gtr than 10 /HPF [facility] Hypochromia Moderate [facility] Polychromasia Present >5/HPF [facility] Ovalocytes 1-5 /HPF [facility] Plat, Giant Less than 1 /HPF [facility] Blood specimen (specimen) 09/11/2020 5:36 AM EST 09/11/2020 6:02 AM EST Narrative Resulting Agency Comment Spec In Lab Carol Reyna MD HEMATOLOGY ORDERABLES [facility] [place] [address] * (ABNORMAL) Hemoglobin A1c (09/11/2020 5:36 AM EST) Hemoglobin A1c 8.3(H) 4.3 - 5.6 % [facility] Comment: Reference Range: [...] Diabetes Care 2013; 36: Suppl. 1, S67-74 Estimated Average Glucose See note mg/dL [facility] Comment: Estimated Average [...] into estimated average glucose values. ??Diabetes Care 2008:31(8):4699-9020. Blood specimen (specimen) 09/11/2020 5:36 AM EST 09/11/2020 6:02 AM EST Narrative Resulting Agency Comment Spec In Lab Amarilys Cerna MD CHEMISTRY ORDERABLES Performing Organization Address City/[facility]/ZIP Co de Phone Number [facility] [place] [address] * Peripheral Smear Review (09/11/2020 5:36 AM EST) Peripheral Smear Review See Comment [facility] Comment: When completed by the Pathologist, report [id number] will display under Hematopathology Reports. Blood specimen (specimen) 09/11/2020 5:36 AM EST 09/11/2020 6:02 AM EST Narrative Resulting Agency Comment Spec In Lab Amarilys Cerna MD HEMATOLOGY ORDERABLE S Performing Organization Address City/[facility]/ZIP Co de Phone Number [facility]ORATORY [place] [id number] * Differential, Automated (09/11/2020 5:36 AM EST) Neutrophil % 63.0 % [facility] LABORAT[facility] Neutrophil Absolute 4.84 1.70 - 6.10 x10(3)/[facility] LABORATORY Lymph % 23.9 % [facility] LABORATORY Lymphocytes Abs 1.8 0.9 - 3.2 x10(3)/[facility] LABORATORY Monocyte % 8.7 % [facility] LAB[facility] Monocyte Abs 0.7 0.3 - 0.9 x10(3)/[facility] LABORATORY Eos % 3.0 % [facility] Eosinophils Abs 0.2 0.0 - 0.4 x10(3)/[facility] LABORATORY Basophil % 0.9 % [facility] Baso Absolute 0.1 0.0 - 0.1 x10(3)/[facility] LABORATORY Immature Gran % 0.50 % [facility] LABORATORY Comment: Immature granulocytes(IG's)percentage and absolute count will include metamyelocytes, myelocytes, and promyelocytes. Blood smears from CBCs yielding IG's will be scanned manually for concordance. If this scan disagrees with the automated IG or if promyelocytes are noted, a manual differential will be performed. Immature Gran Absolute 0.04 0.00 - 0.04 x10(3)/mcL [facility] Blood specimen (specimen) 09/11/2020 5:36 AM EST 09/11/2020 6:02 AM EST Narrative Resulting Agency Comment Spec In Lab Carol Reyna MD HEMATOLOGY ORDERABLES [facility] [place] [address] * (ABNORMAL) Hemogram (09/11/2020 5:36 AM EST) White Blood Cell 7.7 4.0 - 9.5 x10(3)/ L [facility]OR[facility] Red Blood Cell 3.95(L) 4.00 - 5.21 x10(6)/mc L [facility] Hemoglobin 8.4(L) 11.7 - 15.5 gm/dL [facility] Hematocrit 27.2(L) 35.7 - 45.8 % [facility] Mean Cell Volume 68.9(L) 82.6 - 94.4 fL [facility] Mean Cell Hemoglobin 21.3(L) 27.1 - 32.0 pg [facility] Mean Cell Hemoglobin Concentration 30.9(L) 31.7 - 35.0 gm/dL [facility] Platelet 290 145 - 357 x10(3)/ L [facility] RDW Standard Deviation 48.3(H) 37.0 - 46.0 fL [facility] RDW coefficient of variation 19.8(H) 11.5 - 14.1 % [facility] Mean Platelet Volume 9.9 7.6 - 12.9 fL [facility] NRBC% auto 0.5 % [facility] NRBC Absolute 0.040(H) 0.000 - 0.000 x10(3)/mc L [facility] Blood specimen (specimen) 09/11/2020 5:36 AM EST 09/11/2020 6:02 AM EST Narrative Resulting Agency Comment Spec In Lab Carol Reyna MD HEMATOLOGY ORDERABLES [facility] [place] [place] [address] * Magnesium (09/11/2020 5:36 AM EST) [facility] Magnesium 0.82 0.69 - 1.07 mmol/L [facility] Blood specimen (specimen) 09/11/2020 5:36 AM EST 09/11/2020 6:02 AM EST Narrative Resulting Agency Comment Spec In Lab Amarilys Cerna MD CHEMISTRY ORDERABLES Performing Organization Address City/[facility]/ZIP Co de Phone Number [facility] [place] [address] * (ABNORMAL) Hepatic Function Panel (09/11/2020 5:36 AM EST) [facility] Protein, Total 6.8 6.1 - 8.0 gm/dL [facility] Albumin 4.4 3.2 - 5.2 gm/dL [facility] Aspartate Aminotransferase 16 0 - 30 unit/L [facility] Alanine Aminotransferase 16 0 - 30 unit/L [facility] Alkaline Phosphatase 123(H) 35 - 105 unit/L [facility] Bilirubin, Total 2.6(H) 0.2 - 1.3 mg/dL [facility] Comment:result rechecked-[place] Bilirubin, Direct 0.2 0.0 - 0.3 mg/dL [facility] Blood specimen (specimen) 09/11/2020 5:36 AM EST 09/11/2020 6:02 AM EST Narrative Resulting Agency Comment Spec In Lab Amarilys Cerna MD CHEMISTRY ORDERABLES [facility] [place] [address] * (ABNORMAL) BMP w/fasting Glucose (09/11/2020 5:36 AM EST) Glucose Fasting 195(H) 65 - 99 mg/dL [facility] Comment: ?Fasting* Glucose Interpretive Criteria Normal [...] of Diabetes Mellitus, Position Statement from the [place] [employer]. ??Diabetes Care, Volume 33, Supplement 1, Aug 2009 Blood Urea Nitrogen 13 8 - 18 mg/dL [facility] Creatinine 0.90 0.70 - 1.20 mg/dL [facility] Sodium 140 135 - 145 mmol/L [facility] Potassium 3.2(L) 3.5 - 5.0 mmol/L [facility] Comment: Please note: ??Patients with WBC >100,000 may have falsely elevated Potassium levels. ??For accurate Potassium quantification in these patients send serum separator tube (gold top) for subsequent determinations. ??Contact the Clinical Chemistry Laboratory if there are any questions. Chloride 101 98 - 107 mmol/L [facility] Carbon Dioxide 27 22 - 31 mmol/L [facility] Anion Gap 12 5 - 15 mmol/L [facility] Calcium 9.1 8.5 - 10.5 mg/dL [facility] Est Glomerular Filtration Rate 60 >=60 mL/min/1. 73 m?? [facility] Comment: This patient? s [...] Cerna MD CHEMISTRY ORDERABLES Performing Organization Address [facility] Co de Phone Number [facility] [place] [address] * (ABNORMAL) APTT (09/11/2020 5:36 AM EST) Partial Thromboplastin Time 24(L) 25 - 37 sec [facility] Comment: The PTT is NOT appropriate for heparin monitoring. Use the Anti-Xa level for heparin monitoring (HEP UFH) or LMWH monitoring (HEP LMW). A PTT less than 37 seconds generally indicates adequate hemostasis. Blood specimen (specimen) 09/11/2020 5:36 AM EST 09/11/2020 6:02 AM EST Narrative Resulting Agency Comment Spec In Lab Amarilys Cerna MD HEMATOLOGY ORDERABLE S Performing Organization Address City/[facility]/ZIP Co de Phone Number [facility] [place] [address] * Prothrombin Time (09/11/2020 5:36 AM EST) Prothrombin Time 12.5 9.4 - 12.5 sec [facility] International Normalization Ratio 1.1 [facility] Comment: An INR [...] Lab Amarilys Cerna MD HEMATOLOGY ORDERABLE S [facility] [place] [address] * Smear Review Report (09/11/2020 5:30 AM EST) Smear Review Report [id number] ? Location: [facility]; [id number]; B The signing pathologist has (i) examined the relevant preparation(s) for the specimen(s) and (ii) rendered or confirmed the diagnosis(es). . ? Smear Review DIAGNOSIS PERIPHERAL BLOOD, SMEAR: Moderate hypochromic microcytic anemia (see discussion) Electronically signed by: ??Raymundo Peña MD Verified: ??09/11/2020 ?Hematopathologist Performed at: ??-[facility] Dept. of Pathology, [place], [place] DISCUSSION This blood film is requested [...] for severe s/p BAV, ASCVD, and pAF. [facility] 09/11/2020 5:30 AM EST Carol Reyna MD HEMATOLOGY ORDERABLES Performing Organization Address [facility] Co de Phone Number [facility] [place] [address] * (ABNORMAL) POCT Glucose (09/11/2020 5:07 AM EST) Glucose, POC 210(H) 65 - 199 mg/dL [facility] Comment: Supplemental ranges: <140 mg/dL before meals <180 mg/dL all other times of the day Blood specimen (specimen) 09/11/2020 5:07 AM EST 09/11/2020 5:07 AM EST Amarilys Cerna MD POINT OF CARE TEST O RDERABLES Performing Organization Address [facility]/ZIP Co de Phone Number [facility] [place] [address] * Transfuse RBC (09/11/2020 4:45 AM EST) Amarilys Cerna MD NURSING TREATMENT OR DERABLES - BLOOD ADMIN * Transfuse RBC (09/11/2020 12:04 AM EST) Eamon Moser MD NURSING TREATMENT ORDERABLES - BLOOD ADMIN * (ABNORMAL) POCT Glucose (09/10/2020 10:45 PM EST) Pathologist [facility] Glucose, POC 225(H) 65 - 199 mg/dL [facility] Comment: Supplemental ranges: <140 mg/dL before meals <180 mg/dL all other times of the day Blood specimen (specimen) 09/10/2020 10:45 PM EST 09/10/2020 10:45 PM EST Amarilys Cerna MD POINT OF CARE TEST O RDERABLES Performing Organization Address City/[facility]/ZIP Co de Phone Number [facility] [place] [address] * Prepare RBC (09/10/2020 10:40 PM EST) [facility] Dispensed? Yes [facility] Blood specimen (specimen) 09/10/2020 10:40 PM EST 09/10/2020 10:46 PM EST Narrative Resulting Agency Comment Spec In Lab Amarilys Cerna MD BLOOD BANK PRODUCT O RDERABLES Performing Organization Address City/[facility]/ZIP Co de Phone Number [facility] [place] [address] * COVID-19 PCR (09/10/2020 9:44 PM EST) [facility] SARS-CoV-2 RNA (Rapid) Not Detected Not Detected [facility] using the Simplex[employer] COVID-19 Direct Assay by [employer] as authorized by the FDA issued Emergency [...] Department of Pathology and Laboratory Medicine at [facility], certified under the Clinical Laboratory Improvement Amendments [...] fact sheets at the following FDA website: https://www.fda.gov/medical-devices/xmhyljvgkum-nacpemk-3474-vagbu-40-yniemxumf- use-a bbfcgpdyoouyj-vufstah-ohsrtjf/vgblf-ssygdjfhczj-ubbe SARS-CoV-2 Source BACTERIOLOGY PROFESSOR Swab [facility] Nasopharyngeal swab (specimen) 09/10/2020 9:44 PM EST 09/10/2020 10:03 PM EST Comment:Symptoms->Surveillan ce Narrative Resulting Agency Comment Spec In Lab Eamon Moser MD MICROBIOLOGY - NERWA ORDERABLES [facility] [place] [address] * Prepare RBC (09/10/2020 7:40 PM EST) Dispensed? Yes [facility] Blood specimen (specimen) 09/10/2020 7:40 PM EST 09/10/2020 7:40 PM EST Eamon Moser MD BLOOD BANK PRODUC T ORDERABLES [facility] [address] * Differential, Automated (09/10/2020 7:25 PM EST) Neutrophil % 63.6 % [facility] Neutrophil Absolute 4.04 1.70 - 6.10 x10(3)/[facility] LABORATORY Lymph % 24.1 % [facility] Lymphocytes Abs 1.5 0.9 - 3.2 x10(3)/[facility] LABORATORY Monocyte % 8.8 % [facility] Monocyte Abs 0.6 0.3 - 0.9 x10(3)/[facility] LABORATORY Eos % 2.4 % [facility] Eosinophils Abs 0.2 0.0 - 0.4 x10(3)/[facility] LABORATORY Basophil % 0.8 % [facility] Baso Absolute 0.0 0.0 - 0.1 x10(3)/[facility] LABORATORY Immature Gran % 0.30 % [facility] Comment: Immature granulocytes(IG's)percentage and absolute count will include metamyelocytes, myelocytes, and promyelocytes. Blood smears from CBCs yielding IG's will be scanned manually for concordance. If this scan disagrees with the automated IG or if promyelocytes are noted, a manual differential will be performed. Immature Gran Absolute 0.02 0.00 - 0.04 x10(3)/[facility] LABORATORY Blood specimen (specimen) 09/10/2020 7:25 PM EST 09/10/2020 7:36 PM EST Narrative Resulting Agency Comment Spec In Lab Osito Calabrese Jr., MD HEMATOLOGY ORDERA BLES [facility] [place] [address] * (ABNORMAL) Hemogram (09/10/2020 7:25 PM EST) White Blood Cell 6.4 4.0 - 9.5 x10(3)/mc L [facility] Red Blood Cell 2.75(L) 4.00 - 5.21 x10(6)/mc L [facility] Hemoglobin 5.2(Criti ciera) 11.7 - 15.5 gm/dL [facility] Comment: This result has been called to ION SALAZAR by JOB GAYTAN on 09 10 2020 at 2030, and has been read back. Hematocrit 18.2(L) 35.7 - 45.8 % [facility] Mean Cell Volume 66.2(L) 82.6 - 94.4 fL [facility] Mean Cell Hemoglobin 18.9(L) 27.1 - 32.0 pg [facility] Mean Cell Hemoglobin Concentration 28.6(L) 31.7 - 35.0 gm/dL [facility] Platelet 264 145 - 357 x10(3)/mc L [facility] RDW Standard Deviation 41.0 37.0 - 46.0 fL [facility] RDW coefficient of variation 17.3(H) 11.5 - 14.1 % [facility] Mean Platelet Volume 10.1 7.6 - 12.9 fL [facility] NRBC% auto 0.5 % [facility] NRBC Absolute 0.030(H) 0.000 - 0.000 x10(3)/mc L [facility] Blood specimen (specimen) 09/10/2020 7:25 PM EST 09/10/2020 7:36 PM EST Narrative Resulting Agency Comment Spec In Lab Osito Calabrese Jr., MD HEMATOLOGY ORDERA BLES Performing Organization Address [facility] Co de Phone Number [facility] [place] [address] * (ABNORMAL) APTT (09/10/2020 7:25 PM EST) Partial Thromboplastin Time 24(L) 25 - 37 sec [facility] Comment: The PTT is NOT appropriate for heparin monitoring. Use the Anti-Xa level for heparin monitoring (HEP UFH) or LMWH monitoring (HEP LMW). A PTT less than 37 seconds generally indicates adequate hemostasis. Blood specimen (specimen) 09/10/2020 7:25 PM EST 09/10/2020 7:36 PM EST Narrative Resulting Agency Comment Spec In Lab Eamon Moser MD HEMATOLOGY ORDERA BLES Performing Organization Address [facility] de Phone Number [facility] [place] [address] * (ABNORMAL) Prothrombin Time (09/10/2020 7:25 PM EST) Prothrombin Time 13.8(H) 9.4 - 12.5 sec [facility] International Normalization Ratio 1.2 [facility] Comment: An INR [...] MD HEMATOLOGY ORDERA BLES Performing Organization Address [facility] Co de Phone Number [facility] [place] [address] * ABORH Recheck Status (09/10/2020 6:15 PM EST) ABORH Type Recheck Completed [facility] Blood specimen (specimen) 09/10/2020 6:15 PM EST 09/10/2020 6:37 PM EST Narrative Resulting Agency Comment Spec In Lab Osito Calabrese Jr., MD BLOOD BANK LAB OR DERABLES Performing Organization Address [facility] Co de Phone Number [facility] [place] [address] * Antibody screen (09/10/2020 6:15 PM EST) Ab Screen Interp Negative [facility] Expires at [id number] on: 09/13/2020 [facility] Blood specimen (specimen) 09/10/2020 6:15 PM EST 09/10/2020 6:37 PM EST Narrative Resulting Agency Comment Spec In Lab Osito Calabrese Jr., MD BLOOD BANK LAB OR DERABLES Performing Organization Address [facility] Co de Phone Number [facility] [place] [address] * ABO/Rh Typing (09/10/2020 6:15 PM EST) ABORH Type O Pos [facility] Blood specimen (specimen) 09/10/2020 6:15 PM EST 09/10/2020 6:37 PM EST Narrative Resulting Agency Comment Spec In Lab Osito Calabrese Jr., MD BLOOD BANK LAB OR DERABLES Performing Organization Address [facility] Co de Phone Number [facility] [place] [address] * SCAN DOC: LAB (09/10/2020 12:00 AM [...] Oral, 2 TIMES DAILY, First dose on 09/11/20 at 0900, Until Discontinued, Routine Given 09/13/2020 8:36 AM EST 200 mg Given 09/12/2020 8:40 PM EST 200 mg Given 09/12/2020 8:24 AM EST 200 mg AMIOdarone (Cordarone; Pacerone) tablet 200 mg 200 mg, Oral, DAILY, First dose (after last modification) on 09/14/20 at 0900, Until Discontinued, Routine Given 09/18/2020 8:21 AM EST 200 mg Given 09/17/2020 8:09 AM EST 200 mg Given 09/16/2020 8:37 AM EST 200 mg baclofen (Lioresal) tablet 10 mg 10 mg, Oral, ONCE, 1 dose, On 09/13/20 at 0515, For muscle spasm - OK [...] Intravenous, ONCE PRN, 1 dose, Starting on 09/13/20 at 0948, Until Sun09/14/20 at 1141, Per Protocol, Warning Vesicant/Irritant Medication , Radiology Contrast, Routine Given 09/14/2020 11:41 AM EST 96 mLs iron sucrose (Venofer) 300 mg in sodium chloride 0.9% 115 mL infusion 300 mg, Intravenous, ONCE, 1 dose, On 09/12/20 at 1700, Administer over 90 Minutes, Patients should be closely monitored for signs of hypersensitivity during and for at least 30 min after each administration. New Bag 09/12/2020 4:30 PM EST 300 mg 76.7 mL/hr iron sucrose (Venofer) 300 mg in sodium chloride 0.9% 115 mL infusion 300 mg, Intravenous, ONCE, 1 dose, On 09/13/20 at 0945, Administer over 90 Minutes, Patients [...] dose (after last modification) on 09/12/20 at 0915, Until Discontinued, Routine Given 09/13/2020 8:37 AM EST 12.5 mg Given 09/12/2020 9:12 AM EST 12.5 mg losartan (Cozaar) tablet 25 mg 25 mg, Oral, DAILY, First dose on 09/11/20 at 0530, Until Discontinued, Routine Given 09/11/2020 [...] Intravenous, EVERY 8 HOURS PRN, Starting on Norene 09/16/20 at 0823, Until 09/18/20 at 1608, [...] Oral, EVERY 4 HOURS PRN, Starting on Sun09/11/20 at 0402, Until Sun09/16/20 at 0921, hypokalemia, Administer for serum potassium (mMol/L) of 3.6 - 3.8 See instructions for Potassium Protocol in online policies., Routine Given 09/11/2020 9:06 AM EST 40 mEq potassium chloride ER (K-Dur/Klor-Con) tablet 80 mEq 80 mEq, Oral, ONCE, 1 dose, On Sun09/11/20 at 2030, 20 mEq tablet may be [...] Santos RN) 0809 (Given - Provider: Ashley Santacruz, LYLA) 0821 (Given - Provider: Ren Philippe, LYLA) clopidogreL (Plavix) tablet 75 mg 75 mg, Oral, DAILY, First dose on Sun09/11/20 at 0900, Until Discontinued, Routine 0836 (Given - Provider: Thanh Orlando RN) 0809 (Given - Provider: Ashley Santacruz, LYLA) 0820 (Given - Provider: Ren Philippe, LYLA) ferrous gluconate (Fergon) tablet 324 mg 324 mg, Oral, 2 TIMES DAILY, First dose (after last modification) on Sun09/12/20 at 2100, Until Discontinued 0836 (Given - Provider: Thanh Orlando RN)2055 (Given - Provider: Juan Ballesteros RN) 0808 (Given - Provider: Ashley Santacruz, LYLA)2022 (Given - Provider: Skyla Zuniga RN) 08 (Given - Provider: Ren Philippe, LYLA) insulin glargine (Lantus) (100 unit/mL) subcutaneous injection vial 10 Units 10 Units, Subcutaneous, DAILY, First dose on Sun09/11/20 at 0900, Until Discontinued, Routine 0844 (Given - Provider: Thanh Orlando RN) 0807 (Given - Provider: Ashley Santacruz, LYLA) 08 (Given - Provider: Ren Philippe, LYLA) insulin [...] Ashley Santacruz RN)1208 (Given - Provider: Ashley Santacrzu RN)1649 (Given - Provider: Ashley Santacruz, LYLA)2023 (Given - Provider: Skyla Zuniga RN) 0058 [...] 2100, Until Discontinued, Remove lidocaine 5% patch 2099 (Patch Not Removed (add comment) - Provider: Juan Ballesteros RN - Comment: not applied) 2099 (Patch Removed - Provider: Skyla Zuniga, LYLA) losartan (Cozaar) tablet 25 mg (CANCELED) 25 mg, Oral, DAILY, First dose on Sun09/17/20 at 0900, Until Discontinued, Routine 0808 (Given - Provider: Ashley Santacruz RN) losartan (Cozaar) tablet 25 mg (COMPLETED) 25 mg, Oral, ONCE, 1 dose, On Sun09/17/20 at 1215, Routine 1208 (Given - Provider: Ashley Santacruz, LYLA) losartan (Cozaar) tablet 50 mg 50 mg, [...] Routine 0837 (Given - Provider: Thanh Orlando, LYLA)2055 (Given - Provider: Juan Ballesteros, RN) 0809 (Given - Provider: Ashley Santacruz, LYLA)2022 (Given - Provider: Skyla Zuniga RN) 0820 (Given - Provider: Ren Philippe, [...] 1709 (Given - Provider: Fang Kerr, LYLA) 1649 (Given - Provider: Ashley Santacruz RN) senna-docusate (Pericolace) 8.6-50 mg per tablet 2 tablet 2 tablet, Oral, DAILY, First dose on Noreen 09/16/20 at 2100, Until Discontinued, Post-op day 1, Routine 2100 (Not Given - Provider: Juan Ballesteros RN - Reason: Patient/family refused) 202 (Given - Provider: Skyla Zuniga RN) sodium [...] , Routine 0836 (Given - Provider: Thanh Orlando, RN) 0322 (Given - Provider: Juan Ballesteros, LYLA)1121 (Given - Provider: Ashley Santacruz, LYLA) bisacodyL [...] EVERY 2 HOURS PRN, Starting on Noreen 21 at 0823, Until Sun09/17/20 at 0637, High [...] Subcutaneous, ONCE PRN, 1 dose, Starting on Sun09/16/20 at 0823, Until 09/18/20 at 1608, for discomfort with PIV insertion, Routine ondansetron (pf) (Zofran) (2 mg/mL) injection 4 mg 4 mg, Intravenous, EVERY 8 HOURS PRN, Starting on Sun09/16/20 at 0823, Until Sun09/18/20 at 1608, Nausea, Routine 1419 (Given - [...] documented as of this encounter Care Teams Deck Mate Relationship Specialty Start Date End Date Reshma Baig MD [address] [place] [id number] PCP - General Family Medicine 11/08/18 06/23/21 documented as of this encounter
--- OUTSIDE RECORDS SUMMARY | 2024-04-28 15:23 | XMS_ITS | Encounter Summary ---
Author Organization Formerly [facility], [facility] Address [facility] [place] [address] Care Team Providers Care Blood Bank Specialist Name Role Phone Reshma Baig MD Primary Care Provider [phone] Reason for Visit * Reason Comments Abnormal Labs hemoglobin 5.4 * Auth/Cert Specialty Diagnoses / Procedures Referred By Malini carlson Referred To Contact Diagnoses Anemia Procedures EMERGENCY IPI Referral ID Status Reason Start Date Expiration Date Visits Re quested Visits Authorized [id number] 1 1 Encounter Details Date Type Department Care Team (Late st Contact Info) Description 09/15/2020 12:34 PM EST - 09/15/2020 2:12 PM EST [place] [address] Esau Rahman MD [facility] [place] [address] CARDIAC CATHETERIZATION Social History Tobacco Use Types [...] Patient Age: 80 y.o. Birthdate: 1940 Language: Sudanese Race: White Ethnicity: Not nor Admit Date: 09/10/2020 Discharge Date: 09/16/20 Attending Physician: Pan Hurtado MD Follow-up Recommendations for Providers: ??? Please continue routine management of cardiovascular risk factors including blood pressure, lipids, glucose, etc. ??? Please note any medication changes. ??? Our office will schedule a follow-up appointment with your PCP, Reshma Baig MD, or Primary Tour Actor, in ~ 7-10 days. ??? Our office will schedule a follow-up appointment with your Program Director/Air Personality, Dr. Esau Rahman in 4 weeks with a chest x-ray, EKG, Echo, CBC, and CMP. ?? Kaek-Vcjcyv-rs interval: After initial 30 day follow-up appointment , all TAVR patients will follow-up again in one year with an echo. Inpatient Provider Contact Information: [facility] Section of Cardiac Surgery [facility] [place] [address] FAX [phone] Discharge Diagnoses (Hospital Problems) Primary Diagnoses: Aortic [...] DRAINAGE 04/28/2020 CT Guided Drain Peritoneal 04/28/2020 [facility] RAD CAT SCAN ??? HYSTERECTOMY, VAGINAL ??? IR BILIARY TUBE CHECK/CHANGE/REMOVE 06/03/2020 IR Biliary Tube Check/Change/Remove 06/03/2020 Jos Collins, DO [facility] INTERVENTIONL RAD ??? IR CHOLECYSTOSTOMY TUBE PLACEMENT 04/22/2020 IR Cholecystostomy Tube Placement 04/22/2020 Jos Collins, DO [facility] INTERVENTIONL RAD ??? IR DRAIN CHECK/CHANGE/REMOVE 05/19/2020 IR Drain Check/Change/Remove 05/19/2020 Jos Collins, DO [facility] INTERVENTION[facility] RAD ??? PRO COLONOSCOPY, DIAGNOSTIC N/A 09/12/2020 COLONOSCOPY, DIAGNOSTIC performed by Mane Avila MD at [facility] ENDOSCOPY ??? PRO LAP, CHOLECYSTECTOMY/GRAPH N/A 07/15/2020 LAPAROSCOPIC CHOLECYSTECTOMY WITH CHOLANGIOGRAM (WRVU 11.47) performed by Hong Rosenthal MD at [facility] MAIN OR ??? PRO UPPER GI ENDOSCOPY, BIOPSY N/A 09/12/2020 EGD WITH BIOPSY (WRVU 2.49) performed by Mane Avila MD at [facility] ENDOSCOPY ??? PRO UPPER GI ENDOSCOPY, DIAGNOSTIC N/A 05/03/2020 EGD, UPPER GI ENDOSCOPY performed by Brigitte Graf MD at [facility] ENDOSCOPY Prior To Admission Medications Medications Prior [...] seen in clinic on 09/[address] aRhman where she appeared pale and complained of [...] Hospital Course: Shannan Chaudhary was admitted to [facility] on 09/10/2020 via admission from [...] TF TAVR She was brought to the production laborer 09/16/[address] Pan Hurtado and [...] Quantity: 300 each Refills: 3 Blood-Glucose Meter [facility] [place] One Touch Ultra Brand, [...] or drainage from your procedural sites. Your Program Director/Air Personality, Dr. Esau Rahman and/or the Computer Forensics Analyst may be reached at . You may also contact KAMI Mayberry RN, TAVR Applied Research Director at [phone] with any questions or issues. Antibiotic prophylaxis: [...] Please refer to the card with the [place] [employer] Guidelines for more information. You have been provided with a copy of this card. Please refer to the [place] [employer] Guidelines for more information. Good [...] friends, go to a movie, go to orthodoxy, etc. Heavy activities: No hunting, skiing, jogging, [...] should resume a low fat, low cholesterol, [place] [employer] Diet. Driving: No driving for [...] pain, warmth or drainage. Please call your senior analyst market intelligence's office if you haveany discharge or drainage from your procedural sites. If there is a lot of swelling, apply yakelin wraps during the day and remove at bedtime. Elevate your legs when you are sitting. Home oxygen therapy: N/A Follow up appointments: ??? Our office will schedule a follow-up appointment with your PCP, Reshma Baig MD, or Primary Tour Actor, in ~ 7-10 days. ??? Our office will schedule a follow-up appointment with your Program Director/Air Personality, Dr. Esau Rahman, in 4 weeks with a chest x-ray, EKG, Echo, and labs prior to your appointment. ?? Yldq-Lfokxy-jg interval: After initial 30 day follow-up appointment , all TAVR patients will follow-up again in one year with an echo. Cardiac Rehabilitation: Shannan Chaudhary was seen today regarding participation in the outpatient Phase 2 Cardiac Rehabilitation at [facility]. The patient agrees to a referral to this program. The referral will be sent at discharge and the patient should be contacted by the Program within 1- 2 weeks from discharge. Future Appointments and Orders Future Appointments and Orders Future Appointments Provider Department Dept Phone 10/18/2020 12:30 PM LAB, THREE L Lab [address] [place] [address] Arrive at: All Source Intelligence Analyst Area [phone] 10/18/2020 1:00 PM ECHO REGULAR Non-Invasive Cardiology Lab [facility] Arrive at: [employer] Intelligence Analyst Area [phone] 10/18/2020 2:30 PM NURSE, CARDIOLOGY Cardiology at [facility] Arrive at: All Source Intelligence Analyst Area [phone] 10/18/2020 3:00 PM Maria L Green PA Cardiology at [facility] Arrive at: All Source Intelligence Analyst Area [phone] Future Orders Complete By Expires CBC (with Diff) [[id number] Custom] 10/19/2020 (Approximate) 03/18/2021 Process Instructions: INCLUDES: WBC, RBC, Hgb, Hct, Platelets, RBC Indices and Differential Scheduling Instructions: Comments: Questions: Comprehensive metabolic panel (non-fasting) [LAB17 Custom] 10/19/2020 (Approximate) 03/18/2021 Process Instructions: INCLUDES: Calcium, T Protein, Albumin, AST, ALT, Alk Phos, T Bili, BUN, Creat, GFR, Glucose, Lytes. Scheduling Instructions: Comments: Questions: Echocardiogram Transthoracic([facility] or [facility]) [29219 CPT(R)] 10/19/2020 (Approximate) 03/18/2021 Process Instructions: Scheduling Instructions: Questions: Is a Bubble Study requested?: Does the patient have Congenital Heart Disease?: GA rationale: Does patient require sedation?: Where should this exam be performed?: [facility] EKG 12 Lead [22844 CPT(R)] 10/19/2020 (Approximate) 03/18/2021 Process Instructions: Scheduling Instructions: Questions: Which location will this be performed?: [facility] Is a rhythm strip needed?: No XR Chest PA & Lateral (Generic) [18952 68706 Custom] 10/19/2020 (Approximate) 03/18/2021 Process Instructions: Scheduling Instructions: Questions: Where will study be performed?: [facility] Radiology Portable exam?: Reason for exam and clinical history: s/p TAVR Clinical information / sanchez questions: Stat read required?: Date of injury if applicable: Requested Time: Referral to Cardiac Rehab [WQK038 Custom] As directed Process Instructions: If no progress note charted, please enter Clinical details in comments. Scheduling Instructions: Questions: My question or request is: TAVR- CR at [facility] Referral to Home Health - at DISCHARGE [SYV6260 CPT(R)] As directed Process Instructions: Scheduling Instructions: Comments: DOCUMENTATION FOR VNA SERVICES (INCLUDING THOSE PATIENTS WITH MEDICARE COVERAGE REQUIRING HOME VNA SERVICES AND/OR HOSPICE SERVICES) PATIENT'S LOCATION: Shannan Farley[address] [address] (home) Telephone Information: Maintenance Planner's Name: patient In discussion with the attending physician, it is certified that this patient is under their care and that they, or a Nurse Practitioner, or Physician Parts Control Clerk who is working directly with them, hada [...] for services as follows: HOME HEALTH AGENCY: [facility] PHONE: [phone] FAX: [phone] RN orders: Cardiopulmonary assessment, incisional assessment, assess [...] issues please call the Cardiac SurgeryOffice at [phone] FOR MEDICARE ONLY: (please delete this section [...] noted. Questions: Agency name and contact information: [facility] Patient location post discharge: Home What services are requested: Registered Nurse Physical Therapy Start date: Responsible MD post discharge contact info: PCP Walker standard [EQ135 Custom] As directed Process Instructions: Scheduling Instructions: Comments: [facility] [address] [facility] [address] (home) Telephone Information: Diagnosis:severe anemia, s/p TAVR with Unsteady gait Significant weakness, ataxia or gait abnormality Patient's: Hgt: 5'2 Wgt: 174 lbs VENDOR: [facility] Ordering: Front wheel walker Deliver to 's hospital room #: 445 Questions: Vendor Name/Contact information: [facility] Discharge References/Attachments EGD (Upper Endoscopy): Post-op (Sudanese) Colonoscopy: Post-op (Sudanese) Arrangements for VNA/home care: As above. Signed: Prashanth Jacob PA-C [facility] Section of Cardiac Surgery Date: 09/18/2020 CC: MD Safia Mcdonald Linda, MD [address] [place] [address] documented in this encounter Discharge Instructions * [...] or drainage from your procedural sites. Your Program Director/Air Personality, Dr. Esau Rahman and/or the Computer Forensics Analyst may be reached at . ?? You may also contact KAMI Mayberry RN, TAVR Applied Research Director at [phone] with any questions or issues. ?? Antibiotic [...] Please refer to the card with the [place] [employer] Guidelines for more information. You have been provided with a copy of this card. Please refer to the [place] Heart [employer] Guidelines for more information. Good [...] friends, go to a movie, go to orthodoxy, etc. ?? Heavy activities: No hunting, skiing, [...] should resume a low fat, low cholesterol, [place] Heart [employer] Diet. ?? Driving: No driving [...] pain, warmth or drainage. Please call your senior analyst market intelligence's office if you haveany discharge or drainage from your procedural sites. If there is a lot of swelling, apply yakelin wraps during the day and remove at bedtime. Elevate your legs when you are sitting. ?? Home oxygen therapy: N/A ?? Follow up appointments: ?? Our office will schedule a follow-up appointment with your PCP, Reshma Baig MD, or Primary Tour Actor, in ~ 7-10 days. ?? Our office will schedule a follow-up appointment with your Program Director/Air Personality, Dr. Esau Rahman, in 4 weeks with a chest x-ray, EKG, Echo, and labs prior to your appointment. ? Vtpx-Zysvlx-vr interval: After initial 30 day follow-up appointment , all TAVR patients will follow-up again in one year with an echo. ?? Cardiac Rehabilitation: Shannan Chaudhary??was seen today regarding participation in the outpatient Phase 2 Cardiac Rehabilitation at [facility]. The patient agrees to a referral to this program.? The referral will be sent at discharge and the patient should be contacted by the Program within 1- 2 weeks from discharge. ?? * Attachments The following attachments cannot be sent through Care Everywhere. * EGD (Upper Endoscopy): Post-op (Sudanese) * Colonoscopy: Post-op (Sudanese) documented in this encounter Medications at Time [...] 250.02. 1 each 0 12/02/2013 [place] [place] Use twice daily or [...] this encounter Progress Notes * ZahiraNaifLeandra L, PEANUT SORTER - 09/18/2020 1:14 PM EST Physical Therapy [...] and owns. Ambualted independently , without device, PEANUT SORTER. ?? Precautions/Special Considerations:??universal ? Mobility and Positioning [...] Physical Therapy: 10(TE-F 1 Time in 10:45-10:55) LEANDAR PAZ, PEANUT SORTER Pager: [phone] Physical Therapy Inpatient Rehabilitation Department * Renetta [...] DRAINAGE 04/28/2020 CT Guided Drain Peritoneal 04/28/2020 [facility] RAD CAT SCAN ??? HYSTERECTOMY, VAGINAL ??? IR BILIARY TUBE CHECK/CHANGE/REMOVE 06/03/2020 IR Biliary Tube Check/Change/Remove 06/03/2020 Jos Collins, DO [facility] INTERVENTIONL RAD ??? IR CHOLECYSTOSTOMY TUBE PLACEMENT 04/22/2020 IR Cholecystostomy Tube Placement 04/22/2020 Jos Collins, DO [facility] INTERVENTIONL RAD ??? IR DRAIN CHECK/CHANGE/REMOVE 05/19/2020 IR Drain Check/Change/Remove 05/19/2020 Jos Collins, DO [facility] INTERVENTIONL RAD ??? PRO COLONOSCOPY, DIAGNOSTIC N/A 09/12/2020 COLONOSCOPY, DIAGNOSTIC performed by Mane Avila MD at [facility] ENDOSCOPY ??? PRO LAP, CHOLECYSTECTOMY/GRAPH N/A 07/15/2020 LAPAROSCOPIC CHOLECYSTECTOMY WITH CHOLANGIOGRAM (WRVU 11.47) performed by Hong Rosenthal MD at [facility] MAIN OR ??? PRO UPPER GI ENDOSCOPY, BIOPSY N/A 09/12/2020 EGD WITH BIOPSY (WRVU 2.49) performed by Mane Avila MD at [facility] ENDOSCOPY ??? 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 She says it is w/c accessible. She has a stall shower with a seat and grab bar. She does not have grab bars around the toilet. DME: shower seat, grab bars Baseline ADL/Mobility: Pt was independent PEANUT SORTER. She ambulated w/o a device, managed her ADL's and IADL's. 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 She reports being very tired prior to [...] WFL Vision & Perception: ?? corrective lenses radio time salesperson Communication: WFL Range of motion, strength, coordination: [...] and measurable assessment of functional outcome. Pager: [phone] RENETTA CONTRERAS OT 09/18/2020 Occupational Therapy Rehabilitation Department * Teresita Mccloud RN - 09/18/2020 11:22 AM EST Patient to discharge home today, [facility] walker delivered to patient room. Patient will be getting VNA services from [place]. Orders posted by and will start care [...] therapy. Rain Winter OT Inpatient Rehab Pager #[phone] * Chioma Vann RN - 09/17/2020 2:01 [...] Home Health Agency Home Care / Non-Medical: [facility]. PHONE: [phone] FAX: [phone] Transportation: daughter Current DME: Equipment Currently Used at Home: none DME Needed at DC: Equipment Needed After Discharge: [facility] Located @ [place], [place] Functional status prior to admission: independent Home Environment: Lives With: alone. Living Arrangements: apartment. . Current Functional Ability: independent with stand by assist Patient is insured through: Primary Insurance: [employer] [place] Payor: [employer] [place] / Plan: [place] VHP / Product Type: *No Product type* / Secondary Insurance: MEDICARE Prescription Coverage: yes Preferred Pharmacy: [facility] [id number] [facility] [place], [place] - [address] [facility] [address] [place] [id number] This plan was formulated with input from patient, family and team. All are in agreement with plan. Chioma Vann RN, MSN Boiler Attendant - Cardiology Office of Care Management Pager: [phone] Work * Mikala Borden, PT - 09/17/2020 [...] and owns. Ambualted independently , without device, PEANUT SORTER. ?? Precautions/Special Considerations:??none specified ? Mobility and [...] plan as stated. Time IN / OUT: 7237-7217 Total Evaluation Minutes, Physical Therapy: 25(te-fx2) MIKALA BORDEN, PT Pager: [phone] Physical Therapy Inpatient Rehabilitation Department * Ashley [...] 0600 and on the weekends please page [phone]. * Jordan Davenport - 09/17/2020 11:22 AM [...] consulted in the interim. Jordan Davenport Pager: [phone] * Mikala Borden, PT - 09/16/2020 11:11 [...] and owns. Ambualted independently , without device, PEANUT SORTER. ?? Precautions/Special Considerations: none specified ? Mobility [...] plan as stated. Time IN / OUT: 2207-7702 Total Evaluation Minutes, Physical Therapy: 24(te-f x2) MIKALA BORDEN PT Pager: [phone] Physical Therapy Inpatient Rehabilitation Department * Almaz [...] 0600 and on the weekends please page [phone]. * Esau Rahman MD - 09/16/2020 8:11 [...] Transdermal Q24H Carol Reyna MD No current [facility]-ordered outpatient medications on file. Lab Results [...] received in unit S/P TAVR in the production laborer. While sheath being pulled patient became profoundly hypotensive requiring up to 15 mcgs of Levophed. Intubation was being considered but patient improved with blood pressure improvement. On arrival in [facility] patient was on NRB and on Levo at 2. Patient also received 1 unit of blood and 1 liter of NSaline in production laborer. Shortly after arrival Right groin perclose started to bleed. Pressure was held. labeling specialist PA over to inject lido with epi into rightgroin. He then pulled Left groin arterial sheath. At 6:30 Left groin venous sheath pulled by RN. Patient does only have one peripheral IV. Unable to obtain 2nd peripheral line despite attempts by Dr. Patel and IV team. Patient stable. Report given to Night RN. * Dago Merchant PA - 09/15/2020 5:06 PM EST [facility] Heart & Vascular Center Interventional Cardiology Structural [...] neurological deficit. Dago Merchant PA-C Interventional Cardiology [facility] Heart and Vascular [facility] Pager [phone] * Natalia Kamara MD - 09/15/2020 4:39 [...] lbs vs. SS weights SULEMAN Shaver Pager: [phone] * Alvin Serna MD - 09/15/2020 6:36 [...] Note: Added automatically from request for surgery [id number] ??? Obesity (BMI 30.0-34.9) ??? Aortic valve [...] additional CP, dyspnea, nausea, diaphoresis, lightheadedness, dizziness. -EGD/[place] on 09/12 negative -TAVR scheduled for today [...] additional CP, dyspnea, nausea, diaphoresis, lightheadedness, dizziness. -EGD/[place] on 09/12 negative -CTA for TAVR scheduled [...] RN - 09/13/2020 3:17 PM EST The patient/financial sales representative has been provided a list of Home Health Agencies/DME vendors which servetheir preferred geographic area. A letter describing our affiliations was reviewed with them and they were educated about their right to choose where referrals are placed. Provided patient with [facility] Star Quality Rating for Home care hand out. Patient requests referral to [facility] PHONE: [phone] FAX: [phone] Expected date of discharge: 09/18/20. Referral routed to the Director Of Leadership Development for matching with agency/vendor and to provide any required information. Chioma Vann RN, MSN Boiler Attendant - Cardiology Office of Care Management Pager: [phone] Work * Mikala Borden, PT - 09/13/2020 [...] have outpt PT eval this week in [facility] to address. Patient with the following active problems: Past Medical History: Diagnosis Date ??? Actinic keratosis 08/31/2011 ??? Diabetes ??? Seborrheic keratosis 08/31/2011 ??? Severe aortic stenosis Past Surgical History: Procedure Laterality Date ??? CT PERITONEAL DRAINAGE 04/28/2020 CT Guided Drain Peritoneal 04/28/2020 [facility] RAD CAT SCAN ??? HYSTERECTOMY, VAGINAL ??? IR BILIARY TUBE CHECK/CHANGE/REMOVE 06/03/2020 IR Biliary Tube Check/Change/Remove 06/03/2020 Jos Collins, DO [facility] INTERVENTIONL RAD ??? IR CHOLECYSTOSTOMY TUBE PLACEMENT 04/22/2020 IR Cholecystostomy Tube Placement 04/22/2020 Jos Collins, DO [facility] INTER[facility] RAD ??? IR DRAIN CHECK/CHANGE/REMOVE 05/19/2020 IR Drain Check/Change/Remove 05/19/2020 Jos Collins, DO [facility] RAD ??? PRO COLONOSCOPY, DIAGNOSTIC N/A 09/12/2020 COLONOSCOPY, DIAGNOSTIC performed by Mane Avila MD at [facility] ENDOSCOPY ??? PRO LAP, CHOLECYSTECTOMY/GRAPH N/A 07/15/2020 LAPAROSCOPIC CHOLECYSTECTOMY WITH CHOLANGIOGRAM (WRVU 11.47) performed by Hong Rosenthal MD at [facility] MAIN OR ??? PRO UPPER GI ENDOSCOPY, BIOPSY N/A 09/12/2020 EGD WITH BIOPSY (WRVU 2.49) performed by Mane Avila MD at [facility] ENDOSCOPY ??? 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 Ambualted independently , without device, PEANUT SORTER. Precautions/Special Considerations: none specified Mobility and Positioning [...] in this evaluation. Time IN / OUT: 0098-9566 Total Evaluation Minutes, Physical Therapy: 20(evalDyan BORDEN PT Pager: [phone] Physical Therapy Inpatient Rehabilitation Department * Alvin [...] additional CP, dyspnea, nausea, diaphoresis, lightheadedness, dizziness. -EGD/[place] on 09/12 negative -severe muscle spasms in [...] angina Remain on single antiplatelet I will [place] back with patient/family and team once CT/surgery [...] Sarah Garland - 09/11/2020 7:52 PM EST Printer Technician Encounter Note Patient Name: Shannan Chaudhary : [id number] MR#: [id number] Admit Date: 09/10/2020 4:42 PM Hospital Day [...] Will f/u FOBT and GI evaluation-plan for EGD/[place] tomorrow. Will also be worked up for [...] given acute anemia -GI to evaluate with EGD/[place] tomorrow. Appreciate recs. ?? Diet: Clear Liquid [...] MD Gastroenterology PGY-6 09/12/2020 1:48 PM Pager #[phone] * Carol Reyna MD - 09/10/2020 10:37 PM EST Images from the original note were not included. Cardiovascular Medicine Admission History and Physical Patient Name: Shannan Chaudhary Service: S2 Team Responsible Attending: EAMON MOSER JWAN, MD PCP: Reshma Baig MD PCP phone #: [phone] ID/Chief Complaint: Shannan Chaudhary is a 80 [...] mL 2 ??? blood sugar diagnostic strips (Easy Home SolutionsTOUCH ULTRA TEST) Strip 1 each by Other [...] , anaemia 2/2 Hb shearing from deranged [place] valve, analogous to mechanical valve trauma may [...] Meds) - GI consult for EGD +/- [place] (Consulted, need to discuss) ENDO #IDDM2 (A1c [...] Inpatient - Dispo:floors - PT/OT ordered Carol Renya MD PGY2, Cardiology S2, Pager [phone] 09/11/2020 Associated attestation - Abiodun Chun MD [...] follow up appointments with her surgeon and premium card cancellation clerk today, who identified her abnormally low hemoglobin [...] components within normal limits RAPID COVID-19 PCR ([facility]/APD/[facility]) TYPE AND SCREEN ([facility]/CGP/KAUSHIK) CBC (WITH DIFF) ABO/RH TYPING ANTIBODY SCREEN [...] MD - 09/18/2020 2:08 PM EST [facility] SECTION OF CARDIAC SURGERY OPERATIVE REPORT 09/15/20 ? PATIENT NAME:??Shannan Farleyc?1940?? MR#:??[id number] ? REFERRING PHYSICIAN:?? Reshma Baig MD [address] [place] [address] ?? PRE-OPERATIVE DIAGNOSIS: Severe aortic stenosis ? POST-OPERATIVE DIAGNOSIS: Same ? PROCEDURE: ?? 1. Implantation of catheter-delivered prosthetic aortic heart valve; percutaneous femoral artery approach (23??mm Bobo SAPIEN3 transcatheter heart valve) ? SURGEON: Pan Hurtado MD ? FULL STACK PYTHON DEVELOPER: ?? Esau Rahman M.D. ? ANESTHESIA:? Conscious sedation ? CLINICAL HISTORY:? This is a??80-year-old??woman with aortic stenosis. The patient was evaluated for TAVR and found blane an appropriate candidate and is now taken to the production laborer for transcatheter aortic valve replacement using [...] performed. The??right??femoral??artery was accessed percutaneously and a 6-Congolese sheath placed.??Additionally, the??left??common femoral??artery and??left??femoral??vein were accessed percutaneously and 6-Congolese sheaths placed. ? The patient was systemically heparinized with 100 units per kg of IV heparin to goal ACT greater than 250. A 6-Congolese pigtail catheter is then passed up from the??left femoral??arterial sheath and positioned in the right coronary sinus. A transvenous pacing lead is then advanced from the left??femoral vein up to the right ventricle. The #6-Congolese right femoral sheath is then upsized for a 14-Congolese Bobo E-sheath over a Alina wire. A root angiogram was shot, and the optimal view for visualization of the aortic root was obtained. ? The aortic valve was then crossed using a straight-tip wire and an AL- 2??catheter. The straight wire is exchanged for a long flexible J-tip wire and the AL-2??exchanged for a 6-Congolese angled pigtail catheter. A stiff wire was positioned in the apex of the LV under NEELY imaging. Care is taken to avoid contact with the ventricular wall with the transition point of the wire to avoid perforation. The C-arm is then changed back to the ideal imaging plane in [place]DI[place]. ? A 23-mm Bobo SAPIEN3 device is [...] catheters are removed over a wire. The #14-Congolese introducer sheath is removed, and the??right??common femoral arteriotomy closed percutaneously two??ProGlide closure devices. After holding direct pressure for 20 minutes there was no evidence of bleeding from the closure site. ? Protamine is administered. Hemostasis is obtained. ? All sponge, needle, and instrument counts are reported correct at the end of the case. 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 ? and??I??jointly performed the procedure and all of the critical components ?? Attestation: Case Date: 09/15/2020 PAN HURTADO MD 09/23/2020 * Brief Op Note - Pan Hurtado MD - 09/18/2020 2:08 PM EST Brief Operative Note Patient Name: Shannan Chaudhary : [id number] MR#: [id number] Case Date: 09/15/2020 Surgeon: Surgeon(s) and Role: Panel 1: * Esau Rahman MD - Primary * Dago Merchant PA - Physician Parts Control Clerk Panel 2: * Pan Hurtado MD - [...] Outcome (s) achieved Date Met: 09/18/20 09/18/20 9938 Coping/Psychosocial Plan Of Care Reviewed With patient [...] Nieto RN - 09/17/2020 12:28 PM EST [facility] CARDIAC REHABILITATION Shannan Chaudhary was seen today regarding participation in the outpatient Phase 2 Cardiac Rehabilitation at [facility]. The patient agrees to a referral [...] Operative Note Patient Name: Shannan Farleyc : [id number] MR#: [id number] Case Date: 09/15/2020 Surgeon: Surgeon(s) and Role: [...] Hurtado and Amanda present during case, service premium card cancellation clerk Dr Chun, and with the patient and [...] the aortic arch to position across the [place] aortic valve. Rapid ventricular pacing was instituted, [...] DRAINAGE 04/28/2020 CT Guided Drain Peritoneal 04/28/2020 [facility] RAD CAT SCAN ??? HYSTERECTOMY, VAGINAL ??? IR BILIARY TUBE CHECK/CHANGE/REMOVE 06/03/2020 IR Biliary Tube Check/Change/Remove 06/03/2020 Jos Collins, DO [facility] INTERVENTIONL RAD ??? IR CHOLECYSTOSTOMY TUBE PLACEMENT 04/22/2020 IR Cholecystostomy Tube Placement 04/22/2020 Jos Collins, DO [facility] INTERVENTION[facility] RAD ??? IR DRAIN CHECK/CHANGE/REMOVE 05/19/2020 IR Drain Check/Change/Remove 05/19/2020 Jos Collins, DO [facility] INTERVENT[facility] RAD ??? PRO COLONOSCOPY, DIAGNOSTIC N/A 09/12/2020 COLONOSCOPY, DIAGNOSTIC performed by Mane Avila MD at [facility] ENDOSCOPY ??? PRO LAP, CHOLECYSTECTOMY/GRAPH N/A 07/15/2020 LAPAROSCOPIC CHOLECYSTECTOMY WITH CHOLANGIOGRAM (WRVU 11.47) performed by Hong Rosenthal MD at [facility] MAIN OR ??? PRO UPPER GI ENDOSCOPY, BIOPSY N/A 09/12/2020 EGD WITH BIOPSY (WRVU 2.49) performed by Mane Avila MD at [facility] ENDOSCOPY ??? PRO UPPER GI ENDOSCOPY, DIAGNOSTIC N/A 05/03/2020 EGD, UPPER GI ENDOSCOPY performed by Brigitte Graf MD at [facility] ENDOSCOPY Social History: Social History Tobacco Use ??? Smoking status: Never Smoker ??? Smokeless tobacco: Never Used Substance Use Topics ??? Alcohol use: Not Currently Comment: occassional ??? Drug use: Never Social History Social History Narrative ??? Not on file Lutheran - denies Family History: History reviewed. No [...] Avila MD - 09/12/2020 10:40 PM EST [facility] Operative Note Patient Name: Shannan Farleyc : [id number] MR#: [id number] Case Date: 09/12/2020 Surgeon: Surgeon(s) and Role: [...] EST Office of Care Management Initial Assessment Match Marker DAMARIS AVILA RN reviewed record and discussed [...] for doing Advance Directives. Provided copy(ies) of [place] [employer] [facility] Advance Directives Taking Steps booklet [...] Resources: All 3 adult children supportive(2 in [place], 1 in [place])as well as adult grandchildren Behavioral Health History: none noted Substance Use/Abuse: Per H+P never smoked and not using ETOH, no use of illicits Other Pertinent/Service Specific Information: none Health/Prescription Coverage: Primary Insurance: [employer] [place] Secondary Insurance: MEDICARE Prescription Coverage: [employer] w BCBS or ? Medicare D Preferred Pharmacy: not addressed Other: food and housing secure Primary Care Provider: Reshma Baig MD [phone] Patient/Caregiver Goals of Treatment: feel better, figure this out Potential Needs for Transition of Care: Rehab/SNF: NA Home Health: will discuss; agencies serving her town are [facility] + [facility]; not anticipated DME: none Dialysis: NA Community [...] and assist with transition of care planning. Match Marker DAMARIS AVILA RN Pager: [phone] * Consult Note - Mane Avila MD [...] file Gets together: Not on file Attends rastafarian service: Not on file Active member of [...] MD Gastroenterology PGY-6 09/11/2020 11:34 AM Pager #[phone] I have seen and evaluated the patient with Dr. Powell. I have reviewed the fellow's history during the encounter and I agree with the details as written above. My physical examination confirms the above findings. The assessment and plan were formulated in discussion with me at the time of the encounter and I agree with them as documented. Mane Avila MD, MS food service worker [employer], Gastroenterology and Hepatology * Plan of Care [...] 09/10/2020 10:40 PM EST RAPID COVID-19 PCR ([facility]) STAT 09/10/2020 9:44 PM EST PREPARE RBC [...] (Bezet) 521 ms MUSE SYSTEM Calculated P Errol 23 degrees MUSE SYSTEM Calculated R Errol -33 degrees MUSE SYSTEM Calculated T Errol 11 degrees MUSE SYSTEM INTERPRETATION Normal sinus [...] ECHO COMPLETE (10/18/2020 1:51 PM EST) Pathologist [facility] EF 65 HEARTLAB SYSTEM Anatomical Region Laterality Modality Other 10/18/2020 Narrative 10/18/2020 2:36 PM EST Amended Report Procedure: ?Transthoracic Echocardiogram Patient: ?HEIDY SHANNAN A ? (Age): 1940(80y) Med Rec#: ? [id number] ?Sex: ?F ? Site Loc: ? [facility] ?Ht / Wt: ??158(cm)/79(kg) Pt. Loc: ?Echo Lab ?BSA: ?1.81 Study Date: ?? 10/18/2020 ?Pt. Type: Outpatient Tape: ? Referring: Pan Hurtado Reading: Fang Law ([id number]) Laborer [employer]: Wilfredo Santiago DAVID Diagnosis: *Presence of prosthetic [...] Vmax ?1.19 ? m/sec ? MV deceleration [id number] ? msec ? MV A-wave Vmax ?1.68 [...] ? Mid-Inferior ?Normal ? Mid-Inferoseptal ?Normal ? [place]-Septal ? Normal ? [place]-Anterior ? Normal ? [place]-Lateral ?Normal ? [place]-Inferior ? Normal ? [place]-Tip ?Normal ? This report has been electronically signed by: Fang Law MD ? 10/18/2020 14:41:12 Images reviewed and interpretation verified [facility] Cardiac Ultrasound Laboratory Procedure Note Fang Law MD - 10/18/2020 Amended Report Procedure: Transthoracic Echocardiogram Patient: HEIDY ANDERSON(Age): 1940(80y) Med Rec#: [id number] Sex: F Site Loc: [facility] Ht / Wt: 158(cm)/79(kg) Pt. Loc: Echo Lab BSA: 1.81 Study Date: 10/18/2020 Pt. Type: Outpatient Tape: Referring: Pan Hurtado Reading: Fang Law ([id number]) Laborer [employer]: Wilfredo Santiago [facility] [...] MV E-wave Vmax 1.19 m/sec MV deceleration [id number] msec MV A-wave Vmax 1.68 m/sec MV [...] Normal Mid-Posterolateral Normal Mid-Inferior Normal Mid-Inferoseptal Normal [place]-Septal Normal [place]-Anterior Normal [place]-Lateral Normal [place]-Inferior Normal [place]-Tip Normal This report has been electronically signed by: Fang Law MD 10/18/2020 14:41:12 Images reviewed and interpretation verified [facility] Card[facility]ound [facility] Pan Hurtado MD ECHO ORDERABLES * (ABNORMAL) Comprehensive metabolic panel (non-fasting) (10/18/2020 11:52 AM EST) Glucose 302(H) 65 - 199 mg/dL [facility] Comment:Diabetes: >=200 mg/d L plus symptoms Blood Urea Nitrogen 18 8 - 18 mg/dL [facility] Creatinine 0.92 0.70 - 1.20 mg/dL [facility] Sodium 139 135 - 145 mmol/L [facility] Potassium 4.5 3.5 - 5.0 mmol/L [facility] Comment: Please note: ??Patients with WBC >100,000 may have falsely elevated Potassium levels. ??For accurate Potassium quantification in these patients send serum separator tube (gold top) for subsequent determinations. ??Contact the Clinical Chemistry Laboratory if there are any questions. Chloride 104 98 - 107 mmol/L [facility] Carbon Dioxide 23 22 - 31 mmol/L [facility] Anion Gap 12 5 - 15 mmol/L [facility] Calcium 9.3 8.5 - 10.5 mg/dL [facility] Protein, Total 6.9 6.1 - 8.0 gm/dL [facility] Albumin 4.5 3.2 - 5.2 gm/dL [facility] Aspartate Aminotransferase 36(H) 0 - 30 unit/L [facility] Alanine Aminotransferase 44(H) 0 - 30 unit/L [facility] Alkaline Phosphatase 125(H) 35 - 105 unit/L [facility] Bilirubin, Total 0.7 0.2 - 1.3 mg/dL [facility] Est Glomerular Filtration Rate 59(L) >=60 mL/min/1. 73 m?? [facility] [...] MD CHEMISTRY ORDERABL ES Performing Organization Address City/[facility]/ZIP Co de Phone Number [facility] [place] [address] * (ABNORMAL) POCT Glucose (09/18/2020 12:21 PM EST) Glucose, POC 235(H) 65 - 199 mg/dL [facility] Comment: Supplemental ranges: <140 mg/dL before meals <180 mg/dL all other times of the day Blood specimen (specimen) 09/18/2020 12:21 PM EST 09/18/2020 12:21 PM EST Pan Hurtado MD POINT OF CARE TEST ORDERABLES [facility] [place] [address] * (ABNORMAL) POCT Glucose (09/18/2020 7:49 AM EST) Pathologist [facility] Glucose, POC 207(H) 65 - 199 mg/dL [facility] Comment: Supplemental ranges: <140 mg/dL before meals <180 mg/dL all other times of the day Blood specimen (specimen) 09/18/2020 7:49 AM EST 09/18/2020 7:49 AM EST Pan Hurtado MD POINT OF CARE TEST ORDERABLES Performing Organization Address City/State/[facility] Co de Phone Number [facility] [place] [address] * (ABNORMAL) Hemogram (09/18/2020 5:35 AM EST) [facility] White Blood Cell 7.1 4.0 - 9.5 x10(3)/mc L [facility] Red Blood Cell 3.47(L) 4.00 - 5.21 x10(6)/mc L [facility] Hemoglobin 8.2(L) 11.7 - 15.5 gm/dL [facility] Hematocrit 27.2(L) 35.7 - 45.8 % [facility] Mean Cell Volume 78.4(L) 82.6 - 94.4 fL [facility] Mean Cell Hemoglobin 23.6(L) 27.1 - 32.0 pg [facility] Mean Cell Hemoglobin Concentration 30.1(L) 31.7 - 35.0 gm/dL [facility] Platelet 152 145 - 357 x10(3)/mc L [facility] RDW Standard Deviation 71.8(H) 37.0 - 46.0 fL [facility] RDW coefficient of variation 26.5(H) 11.5 - 14.1 % [facility] Mean Platelet Volume 10.7 7.6 - 12.9 [facility]ORATORY NRBC% auto 0.0 % [facility] NRBC Absolute 0.000 0.000 - 0.000 x10(3)/mc L [facility] Blood specimen (specimen) 09/18/2020 5:35 AM EST 09/18/2020 5:47 AM EST Narrative Resulting Agency Comment Spec In Lab Pan Hurtado MD HEMATOLOGY ORDERAB LES Performing Organization Address City/[facility]/ZIP Co de Phone Number [facility] [place] [address] * POCT Glucose (09/18/2020 4:00 AM EST) Glucose, POC 148 65 - 199 mg/dL [facility] Comment: Supplemental ranges: <140 mg/dL before meals <180 mg/dL all other times of the day Blood specimen (specimen) 09/18/2020 4:00 AM EST 09/18/2020 4:00 AM EST Pan Hurtado MD POINT OF CARE TEST ORDERABLES Performing Organization Address [facility]/ZIP Co de Phone Number [facility] [place] [address] * (ABNORMAL) POCT Glucose (09/18/2020 12:55 AM EST) Glucose, POC 207(H) 65 - 199 mg/dL [facility] Comment: Supplemental ranges: <140 mg/dL before meals <180 mg/dL all other times of the day Blood specimen (specimen) 09/18/2020 12:55 AM EST 09/18/2020 12:55 AM EST Pan Hurtado MD POINT OF CARE TEST ORDERABLES Performing Organization Address [facility] Co de Phone Number [facility] [place] [address] * (ABNORMAL) POCT Glucose (09/17/2020 7:42 PM EST) Glucose, POC 217(H) 65 - 199 mg/dL [facility] Comment: Supplemental ranges: <140 mg/dL before meals <180 mg/dL all other times of the day Blood specimen (specimen) 09/17/2020 7:42 PM EST 09/17/2020 7:42 PM EST Pan Hurtado MD POINT OF CARE TEST ORDERABLES [facility] [place] [address] * POCT Glucose (09/17/2020 4:17 PM EST) Glucose, POC 165 65 - 199 mg/dL [facility] Comment: Supplemental ranges: <140 mg/dL before meals <180 mg/dL all other times of the day Blood specimen (specimen) 09/17/2020 4:17 PM EST 09/17/2020 4:17 PM EST Pan Hurtado MD POINT OF CARE TEST ORDERABLES Performing Organization Address City/[facility]/ZIP Co de Phone Number [facility] [place] [address] * POCT Glucose (09/17/2020 3:00 PM EST) Glucose, POC 178 65 - 199 mg/dL [facility] Comment: Supplemental ranges: <140 mg/dL before meals <180 mg/dL all other times of the day Blood specimen (specimen) 09/17/2020 3:00 PM EST 09/17/2020 3:00 PM EST Pan Hurtado MD POINT OF CARE TEST ORDERABLES Performing Organization Address City/[facility]/ZIP Co de Phone Number [facility] [place] [address] * (ABNORMAL) POCT Glucose (09/17/2020 11:28 AM EST) Glucose, POC 251(H) 65 - 199 mg/dL [facility] Comment: Supplemental ranges: <140 mg/dL before meals <180 mg/dL all other times of the day Blood specimen (specimen) 09/17/2020 11:28 AM EST 09/17/2020 11:28 AM EST Pan Hurtado MD POINT OF CARE TEST ORDERABLES Performing Organization Address City/[facility]/ZIP Co de Phone Number [facility] [place] [address] * EKG 12 Lead (09/17/2020 9:03 AM EST) [facility] Ventricular rate 89 BPM MUSE SYSTEM Atrial Rate 89 BPM MUSE SYSTEM P-R Interval 160 ms MUSE SYSTEM QRS Duration 134 ms MUSE SYSTEM Q-T Interval 448 ms MUSE SYSTEM QTC Calculated (Bezet) 545 ms MUSE SYSTEM Calculated P Errol 36 degrees MUSE SYSTEM Calculated R Errol -41 degrees MUSE SYSTEM Calculated T Errol -3 degrees MUSE SYSTEM INTERPRETATION Normal sinus rhythm Left atrial enlargement Left axis deviation Right bundle branch block Abnormal ECG When compared with ECG of 16-SEP-2020 08:57, QRS axis Shifted left Confirmed by MD Amelie, Eusebio Shelton ([id number]) on 09/17/2020 12:57:01 PM MUSE SYSTEM 09/17/2020 9:03 AM EST 09/17/2020 12:57 PM EST Almaz Carias APRN ECG ORDERABLES Performing Organization Address [facility] Co [place] Phone Number MUSE SYSTEM * POCT Glucose (09/17/2020 7:39 AM EST) [facility] Glucose, POC 151 65 - 199 mg/dL [facility] Comment: Supplemental ranges: <140 mg/dL before meals <180 mg/dL all other times of the day Blood specimen (specimen) 09/17/2020 7:39 AM EST 09/17/2020 7:39 AM EST Pan Hurtado MD POINT OF CARE TEST ORDERABLES Performing Organization Address [facility] Co de Phone Number [facility] [place] [address] * (ABNORMAL) Differential, Automated (09/17/2020 5:29 AM EST) [facility] Neutrophil % 77.9 % [facility] Neutrophil Absolute 7.13(H) 1.70 - 6.10 x10(3)/ L [facility] Lymph % 10.2 % [facility] Lymphocytes Abs 0.9 0.9 - 3.2 x10(3)/ L [facility] Monocyte % 7.4 % [facility] Monocyte Abs 0.7 0.3 - 0.9 x10(3)/ L [facility] Eos % 3.5 % [facility] Eosinophils Abs 0.3 0.0 - 0.4 x10(3)/[facility] Basophil % 0.5 % [facility] Baso Absolute 0.0 0.0 - 0.1 x10(3)/[facility] LABORATORY Immature Gran % 0.50 % [facility] Comment: Immature granulocytes(IG's)percentage and absolute count will include metamyelocytes, myelocytes, and promyelocytes. Blood smears from CBCs yielding IG's will be scanned manually for concordance. If this scan disagrees with the automated IG or if promyelocytes are noted, a manual differential will be performed. Immature Gran Absolute 0.05(H) 0.00 - 0.04 x10(3)/ L [facility] Blood specimen (specimen) 09/17/2020 5:29 AM EST 09/17/2020 5:41 AM EST Narrative Resulting Agency Comment Spec In Lab Almaz Carias SATELLITE DISH REPAIRER HEMATOLOGY ORDERAB LES [facility] [place] [address] * (ABNORMAL) Hemogram (09/17/2020 5:29 AM EST) Pathologist [facility] White Blood Cell 9.2 4.0 - 9.5 x10(3)/ L [facility] Red Blood Cell 3.78(L) 4.00 - 5.21 x10(6)/mc L [facility] Hemoglobin 8.7(L) 11.7 - 15.5 gm/dL [facility] Hematocrit 28.8(L) 35.7 - 45.8 % [facility] Mean Cell Volume 76.2(L) 82.6 - 94.4 fL [facility] Mean Cell Hemoglobin 23.0(L) 27.1 - 32.0 pg [facility] Mean Cell Hemoglobin Concentration 30.2(L) 31.7 - 35.0 gm/dL [facility] Platelet 161 145 - 357 x10(3)/mc L [facility] RDW Standard Deviation 67.0(H) 37.0 - 46.0 [facility] LABORATORY RDW coefficient of variation 26.0(H) 11.5 - 14.1 % [facility] Mean Platelet Volume 9.9 7.6 - 12.9 [facility] LABORATORY NRBC% auto 0.0 % [facility] NRBC Absolute 0.000 0.000 - 0.000 x10(3)/mc L [facility] Blood specimen (specimen) 09/17/2020 5:29 AM EST 09/17/2020 5:41 AM EST Narrative Resulting Agency Comment Spec In Lab Almaz Carias SATELLITE DISH REPAIRER HEMATOLOGY ORDERAB LES [facility] [place] [address] * (ABNORMAL) Basic Metabolic Panel (non-fasting) (09/17/2020 5:29 AM EST) Glucose 146 65 - 199 mg/dL [facility] Comment:Diabetes: >=200 mg/d L plus symptoms Blood Urea Nitrogen 15 8 - 18 mg/dL [facility] Creatinine 0.93 0.70 - 1.20 mg/dL [facility] Sodium 139 135 - 145 mmol/L [facility] Potassium 3.9 3.5 - 5.0 mmol/L [facility] Comment: Please note: ??Patients with WBC >100,000 may have falsely elevated Potassium levels. ??For accurate Potassium quantification in these patients send serum separator tube (gold top) for subsequent determinations. ??Contact the Clinical Chemistry Laboratory if there are any questions. Chloride 108(H) 98 - 107 mmol/L [facility] Carbon Dioxide 21(L) 22 - 31 mmol/L [facility] Anion Gap 10 5 - 15 mmol/L [facility] Calcium 8.3(L) 8.5 - 10.5 mg/dL [facility] Est Glomerular Filtration Rate 58(L) >=60 mL/min/1. 73 m?? [facility] [...] Resulting Agency Comment Spec In Lab Almaz Jv SATELLITE DISH REPAIRER CHEMISTRY ORDERABL ES [facility] [place] [address] * (ABNORMAL) Troponin (09/17/2020 5:29 AM EST) Troponin-T 0.02(H) 0.00 - 0.00 ng/mL [facility] Comment: The 99th percentile for Troponin T is less than 0.01 ng/mL, any detectable cTnT concentration using this assay should be considered elevated. According to the third universal definition of myocardial infarction the following criteria with a clinical presentation consistent with acute myocardial ischemia meets the diagnosis for a myocardial infarction (IA). Detection of a rise and/or fall of cTnT, with at least one value greater than the 99th percentile (> or = 0.01) and with at least one of the following ?? Symptoms of ischemia ?? New or presumed new significant KO-[id number]-B wave (ST-T) changes or new left bundle [...] additional sample may be indicated. Reference: Third [place] Definition of Myocardial Infarction. Journal of the [place] [employer] 2012;60:1581-98 Blood specimen (specimen) 09/17/2020 5:29 AM EST 09/17/2020 5:41 AM EST Narrative Resulting Agency Comment Spec In Lab Almaz Carias APRN CHEMISTRY ORDERABL ES Performing Organization Address City/[facility]/ZIP Co de Phone Number [facility] [place] [address] * POCT Glucose (09/17/2020 3:28 AM EST) Glucose, POC 150 65 - 199 mg/dL [facility] Comment: Supplemental ranges: <140 mg/dL before meals <180 mg/dL all other times of the day Blood specimen (specimen) 09/17/2020 3:28 AM EST 09/17/2020 3:28 AM EST Pan Hurtado MD POINT OF CARE TEST ORDERABLES [facility] [place] [address] * POCT Glucose (09/17/2020 12:02 AM EST) Glucose, POC 159 65 - 199 mg/dL [facility] Comment: Supplemental ranges: <140 mg/dL before meals <180 mg/dL all other times of the day Blood specimen (specimen) 09/17/2020 12:02 AM EST 09/17/2020 12:02 AM EST Pan Hurtado MD POINT OF CARE TEST ORDERABLES Performing Organization Address City/[facility]/ZIP Co de Phone Number [facility] [place] [address] * POCT Glucose (09/16/2020 8:47 PM EST) Glucose, POC 190 65 - 199 mg/dL [facility] Comment: Supplemental ranges: <140 mg/dL before meals <180 mg/dL all other times of the day Blood specimen (specimen) 09/16/2020 8:47 PM EST 09/16/2020 8:47 PM EST Pan Hurtado MD POINT OF CARE TEST ORDERABLES Performing Organization Address City/[facility] Co de Phone Number [facility] [place] [address] * POCT Glucose (09/16/2020 4:00 PM EST) Glucose, POC 186 65 - 199 mg/dL [facility] Comment: Supplemental ranges: <140 mg/dL before meals <180 mg/dL all other times of the day Blood specimen (specimen) 09/16/2020 4:00 PM EST 09/16/2020 4:00 PM EST Pan Hurtado MD POINT OF CARE TEST ORDERABLES Performing Organization Address City/[facility] Co de Phone Number [facility] [place] [address] * POCT Glucose (09/16/2020 2:11 PM EST) Glucose, POC 181 65 - 199 mg/dL [facility] Comment: Supplemental ranges: <140 mg/dL before meals <180 mg/dL all other times of the day Blood specimen (specimen) 09/16/2020 2:11 PM EST 09/16/2020 2:11 PM EST Pan Hurtado MD POINT OF CARE TEST ORDERABLES [facility] [place] [address] * XR Chest PA & Lateral (Generic) [...] ? Electronically signed by: Mayte Pollack MD, [facility] ([phone]), at 09/16/2020 2:29 PM Narrative 09/16/2020 2:29 [...] below. Electronically signed by: Mayte Pollack MD, [facility]([phone]), at 09/16/2020 2:29 PM Almaz Carias APRN IMG DX ORDERABLES * (ABNORMAL) POCT Glucose (09/16/2020 11:51 AM EST) Pathologist [facility] Glucose, POC 247(H) 65 - 199 mg/dL [facility] Comment: Supplemental ranges: <140 mg/dL before meals <180 mg/dL all other times of the day Blood specimen (specimen) 09/16/2020 11:51 AM EST 09/16/2020 11:51 AM EST Pan Hurtado MD POINT OF CARE TEST ORDERABLES [facility] [place] [address] * EKG 12 Lead (09/16/2020 8:57 AM EST) Ventricular rate 66 BPM MUSE SYSTEM Atrial Rate 66 BPM MUSE SYSTEM P-R Interval 174 ms MUSE SYSTEM QRS Duration 132 ms MUSE SYSTEM Q-T Interval 502 ms MUSE SYSTEM QTC Calculated (Bezet) 526 ms MUSE SYSTEM Calculated P Errol 32 degrees MUSE SYSTEM Calculated R Errol -17 degrees MUSE SYSTEM Calculated T Errol -54 degrees MUSE SYSTEM INTERPRETATION Normal sinus rhythm Right bundle branch block Abnormal ECG When compared with ECG of 16-SEP-2020 05:52, (unconfirmed) No significant change was found Confirmed by MD Ramos Daniel ([id number]) on 09/16/2020 11:26:44 PM MUSE SYSTEM 09/16/2020 8:57 AM EST 09/16/2020 11:26 PM EST Pan Hurtado MD ECG ORDERABLES Performing Organization Address City/[facility] Co de Phone Number MUSE SYSTEM * POCT Glucose (09/16/2020 8:20 AM EST) Glucose, POC 119 65 - 199 mg/dL [facility] Comment: Supplemental ranges: <140 mg/dL before meals <180 mg/dL all other times of the day Blood specimen (specimen) 09/16/2020 8:20 AM EST 09/16/2020 8:20 AM EST Pan Hurtado MD POINT OF CARE TEST ORDERABLES Performing Organization Address [facility] de Phone Number [facility] [place] [address] * EKG 12 Lead (09/16/2020 5:52 AM EST) Ventricular rate 66 BPM MUSE SYSTEM Atrial Rate 66 BPM MUSE SYSTEM P-R Interval 164 ms MUSE SYSTEM QRS Duration 130 ms MUSE SYSTEM Q-T Interval 496 ms MUSE SYSTEM QTC Calculated (Bezet) 519 ms MUSE SYSTEM Calculated P Errol 34 degrees MUSE SYSTEM Calculated R Errol -17 degrees MUSE SYSTEM Calculated T Errol -16 degrees MUSE SYSTEM INTERPRETATION Normal sinus rhythm Right bundle branch block Abnormal ECG When compared with ECG of 15-SEP-2020 15:18, (unconfirmed) No significant change was found I personally reviewed the tracing and edited the fellows interpretation Confirmed by fellow Anam Cazares ([id number]) on 09/16/2020 4:52:54 PM Confirmed by MD Amelie, Eusebio Shelton ([id number]) on 09/16/2020 7:19:19 PM MUSE SYSTEM 09/16/2020 5:52 AM EST 09/16/2020 7:19 PM EST Pan Hurtado MD ECG ORDERABLES Performing Organization Address City/[facility]/ZIP Co de Phone Number MUSE SYSTEM * POCT Glucose (09/16/2020 4:07 AM EST) Glucose, POC 132 65 - 199 mg/dL [facility] Comment: Supplemental ranges: <140 mg/dL before meals <180 mg/dL all other times of the day Blood specimen (specimen) 09/16/2020 4:07 AM EST 09/16/2020 4:07 AM EST Pan Hurtado MD POINT OF CARE TEST ORDERABLES [facility] [place] [address] * (ABNORMAL) Differential, Automated (09/16/2020 2:20 AM EST) Pathologist [facility] Neutrophil % 88.7 % [facility] Neutrophil Absolute 15.05(H) 1.70 - 6.10 x10(3)/mc L [facility] Lymph % 4.5 % [facility] Lymphocytes Abs 0.8(L) 0.9 - 3.2 x10(3)/mc L [facility] Monocyte % 5.3 % [facility] Monocyte Abs 0.9 0.3 - 0.9 x10(3)/mc L [facility] Eos % 0.5 % [facility] Eosinophils Abs 0.1 0.0 - 0.4 x10(3)/mc L [facility] Basophil % 0.4 % [facility] Baso Absolute 0.1 0.0 - 0.1 x10(3)/mc L [facility] Immature Gran % 0.60 % [facility] Comment: Immature granulocytes(IG's)percentage and absolute count will include metamyelocytes, myelocytes, and promyelocytes. Blood smears from CBCs yielding IG's will be scanned manually for concordance. If this scan disagrees with the automated IG or if promyelocytes are noted, a manual differential will be performed. Immature Gran Absolute 0.10(H) 0.00 - 0.04 x10(3)/ L [facility] Blood specimen (specimen) 09/16/2020 2:20 AM EST 09/16/2020 2:30 AM EST Narrative Resulting Agency Comment Spec In Lab Carol Reyna MD HEMATOLOGY ORDERABLES [facility] [place] [address] * (ABNORMAL) Hemogram (09/16/2020 2:20 AM EST) White Blood Cell 17.0(H) 4.0 - 9.5 x10(3)/[facility] LABORAT[facility] Red Blood Cell 4.26 4.00 - 5.21 x10(6)/[facility]ORY Hemoglobin 9.9(L) 11.7 - 15.5 gm/dL [facility] Hematocrit 31.6(L) 35.7 - 45.8 % [facility] Mean Cell Volume 74.2(L) 82.6 - 94.4 fL [facility] Mean Cell Hemoglobin 23.2(L) 27.1 - 32.0 pg [facility] Mean Cell Hemoglobin Concentration 31.3(L) 31.7 - 35.0 gm/dL [facility] Platelet 247 145 - 357 x10(3)/[facility] LABORATORY RDW Standard Deviation 61.8(H) 37.0 - 46.0 fL [facility] RDW coefficient of variation 24.9(H) 11.5 - 14.1 % [facility] Mean Platelet Volume 9.9 7.6 - 12.9 fL [facility] NRBC% auto 0.1 % [facility] NRBC Absolute 0.020(H) 0.000 - 0.000 x10(3)/ L [facility] Blood specimen (specimen) 09/16/2020 2:20 AM EST 09/16/2020 2:30 AM EST Narrative Resulting Agency Comment Spec In Lab Carol Reyna MD HEMATOLOGY ORDERABLES Performing Organization Address [facility] Co de Phone Number [facility] [place] [address] * Magnesium (09/16/2020 2:20 AM EST) Magnesium 0.80 0.69 - 1.07 mmol/L [facility] Blood specimen (specimen) 09/16/2020 2:20 AM EST 09/16/2020 2:30 AM EST Narrative Resulting Agency Comment Spec In Lab Amarilys Cerna MD CHEMISTRY ORDERABLES Performing Organization Address [facility] de Phone Number [facility] [place] [address] * (ABNORMAL) BMP w/fasting Glucose (09/16/2020 2:20 AM EST) Glucose Fasting 136(H) 65 - 99 mg/dL [facility] Comment: ?Fasting* Glucose Interpretive Criteria [...] of Diabetes Mellitus, Position Statement from the [place] [employer]. ??Diabetes Care, Volume 33, Supplement 1, Aug 2009 Blood Urea Nitrogen 18 8 - 18 mg/dL [facility] Creatinine 0.99 0.70 - 1.20 mg/dL [facility] Sodium 137 135 - 145 mmol/L [facility] Potassium 4.0 3.5 - 5.0 mmol/L [facility] Comment: Please note: ??Patients with WBC >100,000 may have falsely elevated Potassium levels. ??For accurate Potassium quantification in these patients send serum separator tube (gold top) for subsequent determinations. ??Contact the Clinical Chemistry Laboratory if there are any questions. Chloride 107 98 - 107 mmol/L [facility] Carbon Dioxide 22 22 - 31 mmol/L [facility] Anion Gap 8 5 - 15 mmol/L [facility] Calcium 8.3(L) 8.5 - 10.5 mg/dL [facility] Est Glomerular Filtration Rate 54(L) >=60 mL/min/1. 73 m?? [facility] In Lab Amarilys Cerna MD CHEMISTRY ORDERABLES [facility] [place] [address] * APTT (09/16/2020 2:20 AM EST) Partial Thromboplastin Time 28 25 - 37 sec [facility] Comment: The PTT is NOT appropriate for heparin monitoring. Use the Anti-Xa level for heparin monitoring (HEP UFH) or LMWH monitoring (HEP LMW). A PTT less than 37 seconds generally indicates adequate hemostasis. Blood specimen (specimen) 09/16/2020 2:20 AM EST 09/16/2020 2:30 AM EST Narrative Resulting Agency Comment Spec In Lab Amarilys Cerna MD HEMATOLOGY ORDERABLE S [facility] [place] [address] * (ABNORMAL) Prothrombin Time (09/16/2020 2:20 AM EST) Prothrombin Time 13.3(H) 9.4 - 12.5 sec [facility] International Normalization Ratio 1.2 [facility] Comment: An [...] ORDERABLE S Performing Organization Address [facility] Co de Phone Number [facility] [place] [address] * POCT Glucose (09/15/2020 11:15 PM EST) Glucose, POC 146 65 - 199 mg/dL [facility] Comment: Supplemental ranges: <140 mg/dL before meals <180 mg/dL all other times of the day Blood specimen (specimen) 09/15/2020 11:15 PM EST 09/15/2020 11:15 PM EST Pan Hurtado MD POINT OF CARE TEST ORDERABLES Performing Organization Address City/[facility]/ZIP Co de Phone Number [facility] [place] [address] * (ABNORMAL) POCT Glucose (09/15/2020 7:59 PM EST) Pathologist [facility] Glucose, POC 200(H) 65 - 199 mg/dL [facility] Comment: Supplemental ranges: <140 mg/dL before meals <180 mg/dL all other times of the day Blood specimen (specimen) 09/15/2020 7:59 PM EST 09/15/2020 7:59 PM EST Pan Hurtado MD POINT OF CARE TEST ORDERABLES [facility] [place] [address] * (ABNORMAL) Hemogram (09/15/2020 3:40 PM EST) [facility] White Blood Cell 8.6 4.0 - 9.5 x10(3)/mc L [facility] Red Blood Cell 4.46 4.00 - 5.21 x10(6)/mc L [facility] Hemoglobin 10.1(L) 11.7 - 15.5 gm/dL [facility] Hematocrit 33.9(L) 35.7 - 45.8 % [facility] Mean Cell Volume 76.0(L) 82.6 - 94.4 fL [facility] Mean Cell Hemoglobin 22.6(L) 27.1 - 32.0 pg [facility] Mean Cell Hemoglobin Concentration 29.8(L) 31.7 - 35.0 gm/dL [facility] Platelet 194 145 - 357 x10(3)/mc L [facility] RDW Standard Deviation 64.4(H) 37.0 - 46.0 fL [facility] RDW coefficient of variation 25.1(H) 11.5 - 14.1 % [facility] Mean Platelet Volume 10.4 7.6 - 12.9 fL [facility] NRBC% auto 0.7 % [facility] NRBC Absolute 0.060(H) 0.000 - 0.000 x10(3)/mc L [facility] Blood specimen (specimen) 09/15/2020 3:40 PM EST 09/15/2020 4:21 PM EST Narrative Resulting Agency Comment Spec In Lab Abiodun Chun MD HEMATOLOGY ORDERABLE S Performing Organization Address City/[facility]/ZIP Co de Phone Number [facility] [place] [address] * POCT Glucose (09/15/2020 3:28 PM EST) Glucose, POC 180 65 - 199 mg/dL [facility] Comment: Supplemental ranges: <140 mg/dL before meals <180 mg/dL all other times of the day Blood specimen (specimen) 09/15/2020 3:28 PM EST 09/15/2020 3:28 PM EST Pan Hurtado MD POINT OF CARE TEST ORDERABLES Performing Organization Address City/[facility]/ZIP Co de Phone Number [facility] [place] [address] * ECHO COMPLETE (09/15/2020 3:24 PM EST) EF 70 HEARTLAB SYSTEM Anatomical Region Laterality Modality Other 09/15/2020 Narrative 09/16/2020 8:00 AM EST Procedure: ?Transthoracic Echocardiogram Patient: ?HEIDY SHANNAN A ? (Age): 1940(80y) Med Rec#: ? [id number] ?Sex: ?F ? Site Loc: ? [facility] ?Ht / Wt: ??158(cm)/78(kg) Pt. Loc: ?[facility] ?BSA: ?1.8 Study Date: ?? 09/15/2020 ?Pt. Type: Inpatient Tape: ? Referring: Esau Rahman Reading: Jos Wheeler ([id number]) [employer]: Danie Huff Diagnosis: *Nonrheumatic aortic (valve) stenosis [...] 09/15/2020 16:21:34 Images reviewed and interpretation verified [facility] Procedure Note Jos Wheeler MD - 09/16/2020 Procedure: Transthoracic Echocardiogram Patient: HEIDY Francis DOB(Age): 1940(80y) Med Rec#: [id number] Sex: F Site Loc: [facility] Ht / Wt: 158(cm)/78(kg) Pt. Loc: [facility] BSA: 1.8 Study Date: 09/15/2020 Pt. Type: Inpatient Tape: Referring: Esau Rahman Reading: Jos Wheeler ([id number]) [employer]: Danie Huff Diagnosis: *Nonrheumatic aortic (valve) stenosis [...] 09/15/2020 16:21:34 Images reviewed and interpretation verified [facility] Abiodun Chun MD ECHO ORDERABLES * EKG 12 Lead (09/15/2020 3:18 PM EST) Ventricular rate 69 BPM MUSE SYSTEM Atrial Rate 69 BPM MUSE SYSTEM P-R Interval 156 ms MUSE SYSTEM QRS Duration 136 ms MUSE SYSTEM Q-T Interval 510 ms MUSE SYSTEM QTC Calculated (Bezet) 546 ms MUSE SYSTEM Calculated P Errol 50 degrees MUSE SYSTEM Calculated R Errol 94 degrees MUSE SYSTEM Calculated T Errol -21 degrees MUSE SYSTEM INTERPRETATION Normal sinus rhythm Right bundle branch block T wave abnormality, consider inferior ischemia Abnormal ECG When compared with ECG of 10-SEP-2020 13:18, Nonspecific T wave abnormality no longer evident in Anterolateral leads QT has lengthened Confirmed by MD Richard, Alvin ([id number]) on 09/16/2020 11:17:42 PM MUSE SYSTEM 09/15/2020 3:18 PM EST 09/16/2020 11:17 PM EST Abiodun Chun MD ECG ORDERABLES MUSE SYSTEM * CARDIAC CATHETERIZATION (09/15/2020 3:15 PM EST) Anatomical Region Laterality Modality Other Narrative 09/16/2020 6:34 PM EST ?[facility] ? Cardiac Catheterization/Intervention Report ? Patient Name: HEIDY, SHANNAN A. ? Procedure Date: 09/15/2020 ? A #: [id number] ? Primary Physician: Esau Rahman ? Case #: [id number] ? File Name: [id number] ? Catheterization Order Number: [id number] ? [facility] ? Final Report [place], [place] ? Patient Name: ? SHANNAN A. HEIDY ? ID#: ?[id number] ? : ?1940 ? Procedure Date: ? September 15, 2020 ? Case #: ? [id number] ? Room: ? 6 ? Case Physicians: ?Esau Rahman M.D. ?Start: ?13:45 ?Pan Hurtado M.D. ? Admission: ??09/10/2020 ? Discharge: ??09/18/2020 ? Referring Physician: ??Reshma Baig M.D. ? Procedures: ?* Left Heart Catheterization ?* Aortic Root Aortogram ?* Transcatheter Aortic Valve Replacement ?* Temporary Pacemaker Insertion In [employer] ?* Arterial Line / Sheath Insert ?* [...] Bobo Jemma 3 Ultra 23 mm THV ([id number]/f=[id number]) transcatheter valve was ?inserted using standard technique. [...] dose administered prior to arrival in the production laborer. ?Recommended anti-platelet/anti-thrombotic regimen: ?Continue clopidogrel 75 mg daily for 3 months then stop. ?Custom Protocol: After plavix is stopped, restart asa 81 mg daily. ?These recommendations are made at the time of the intervention. Patient ?and provider preferences or a changing clinical situation may require ?modification of this regimen. Consult [facility] Interventional Cardiology for ?questions. ? Conclusions: ?* [...] ?greater than 250 seconds) followed by the [facility] e-sheath (the sheath is 14 ?Fr for [...] the aortic arch ?to position across the [place] aortic valve. Rapid ventricular pacing was ?instituted, [...] catheterization, ?aortic root aortogram, temporary pacemaker in production laborer, arterial line / ?sheath insert, venous line / sheath insert, transesophageal echo during ?cath, ABG, TAVR, access site angiography and vascular ultrasound. ?Pan Hurtado M.D. performed the left heart catheterization, aortic ?root aortogram, temporary pacemaker in production laborer, arterial line / sheath ?insert, venous line / sheath insert, transesophageal echo during cath, ABG ?and TAVR. ? Esau J Coylewright, ? M.D. ? Electronically Signed by: Esau Rahman M.D. ? Report Finalized: 09/16/2020 ??18:29 ? Report Last Ammended: 10/08/2020 ??11:00 ? Procedure Note Esau Rahman MD - 10/08/2020 [facility] Cardiac Catheterization/Intervention Report Patient Name: SHANNAN CHAUDHARY Procedure Date: 09/15/2020 A #: [id number] Primary Physician: Esau Rahman Case #: [id number] File Name: [id number] Catheterization Order Number: [id number] [facility] FinalReport [place], [place] Patient Name: SHANNAN FREYLERC ID#:[id number] :1940 Procedure Date: September 15, 2020 Case #: [id number] Room: 6 Case Physicians: Esau Rahman M.D. Start: 13:45 Pan Hurtado M.D. Admission:09/10/2020 Discharge:09/18/2020 Referring Physician: Reshma Safia, M.D. Procedures: * Left Heart Catheterization * Aortic Root Aortogram * Transcatheter Aortic Valve Replacement * Temporary Pacemaker Insertion In [employer] [facility] [employer] * Arterial Line / Sheath Insert * [...] designated asASA Class IV. The [facility] clinical frailty scale is 5: Mildly [...] Bobo Jemma 3 Ultra 23 mm THV (s/m=[id number]) transcathetervalve was inserted using standard technique. Protamine [...] dose administered prior to arrival in the production laborer. Recommended anti-platelet/anti-thrombotic regimen: Continue clopidogrel 75 mg daily for 3 months then stop. Custom Protocol: After plavix is stopped, restart asa 81 mg daily. These recommendations are made at the time of the intervention.Patient and provider preferences or a changing clinical situation mayrequire modification of this regimen. Consult [facility] Interventional Cardiologyfor questions. Conclusions: * Severe aortic [...] around the aorticarch to position across the [place] aortic valve. Rapid ventricular pacingwas instituted, and [...] heartcatheterization, aortic root aortogram, temporary pacemaker in production laborer, arterial line/ sheath insert, venous line / sheath insert, transesophageal echoduring cath, ABG, TAVR, access site angiography and vascular ultrasound. Dr. Pan Hurtado M.D. performed the left heart catheterization,aortic root aortogram, temporary pacemaker in production laborer, arterial line /sheath insert, venous line / sheath insert, transesophageal echo during cath,ABG and TAVR. Esau Mcgarry M.D. Electronically Signed by: Esau Rahman M.D. Report Finalized: 09/16/2020 18:29 Report Last Ammended: 10/08/2020 11:00 Esau Rahman MD CARDIAC CATH JESSICA BLOCK * (ABNORMAL) Point of Care Blood Gas Historical (09/15/2020 2:40 PM EST) pH, POC 7.44 7.35 - 7.45 [facility] pCO2, POC 26(L) 35 - 45 mmHg [facility] pO2, POC 75(L) 85 - 104 mmHg [facility] Base Excess, POC -7.0(L) -3.0 - 3.0 mmol/L [facility] Bicarbonate, POC 17.5(L) 20.0 - 26.0 mmol/L [facility] Sodium, POC 140 135 - 145 mmol/L [facility] POC Potassium 3.8 3.5 - 5.0 mmol/L [facility] POC Hematocrit 29.0(L) 34.0 - 45.0 % [facility] POC Calc Hgb 9.9(L) 11.2 - 15.7 gm/dL [facility] Comment:The calculation of h emoglobin from hematocrit assumes a normal MCHC. POC Bgas Loc CC LAB [facility] Blood specimen (specimen) 09/15/2020 2:40 PM EST 09/16/2020 9:00 AM EST Pan Hurtado MD CHEMISTRY ORDERABL ES Performing Organization Address [facility] [place] [address] * Prepare RBC (09/15/2020 2:35 PM EST) Dispensed? Yes [facility] Blood specimen (specimen) 09/15/2020 2:35 PM EST 09/15/2020 2:33 PM EST Abiodun Chun MD BLOOD BANK PRODUCT O RDERABLES Performing Organization Address City/[facility]/ZIP Co de Phone Number [facility] [place] [address] * (ABNORMAL) Point of Care Blood Gas Historical (09/15/2020 1:51 PM EST) pH, POC 7.40 7.35 - 7.45 [facility] pCO2, POC 37 35 - 45 mmHg [facility] pO2, POC 71(L) 85 - 104 mmHg [facility] Base Excess, POC -2.0 -3.0 - 3.0 mmol/L [facility] Bicarbonate, POC 22.7 20.0 - 26.0 mmol/L [facility] Sodium, POC 142 135 - 145 mmol/L [facility] POC Potassium 3.7 3.5 - 5.0 mmol/L [facility] POC Hematocrit 25.0(L) 34.0 - 45.0 % [facility] POC Calc Hgb 8.5(L) 11.2 - 15.7 gm/dL [facility] Comment:The calculation of h emoglobin from hematocrit assumes a normal MCHC. POC Bgas Loc CC LAB [facility] Blood specimen (specimen) 09/15/2020 1:51 PM EST 09/16/2020 9:00 AM EST Pan Hurtado MD CHEMISTRY ORDERABL ES Performing Organization Address City/[facility]/ZIP Co de Phone Number [facility] [place] [address] * POCT Glucose (09/15/2020 1:50 PM EST) Glucose, POC 151 65 - 199 mg/dL [facility] Comment: Supplemental ranges: <140 mg/dL before meals <180 mg/dL all other times of the day Blood specimen (specimen) 09/15/2020 1:50 PM EST 09/15/2020 1:50 PM EST Abiodun Chun MD POINT OF CARE TEST O RDERABLES Performing Organization Address [facility] Co de Phone Number [facility] [place] [address] * POCT Glucose (09/15/2020 11:40 AM EST) Glucose, POC 176 65 - 199 mg/dL [facility] Comment: Supplemental ranges: <140 mg/dL before meals <180 mg/dL all other times of the day Blood specimen (specimen) 09/15/2020 11:40 AM EST 09/15/2020 11:40 AM EST Abiodun Chun MD POINT OF CARE TEST O RDERATOAN Performing Organization Address [facility]/ZIP Co de Phone Number [facility] [place] [address] * ABORH Recheck Status (09/15/2020 10:09 AM EST) ABORH Type Recheck Completed [facility] Blood specimen (specimen) 09/15/2020 10:09 AM EST 09/15/2020 10:14 AM EST Narrative Resulting Agency Comment Spec In Lab Esau Rahman MD BLOOD BANK LAB OR DERABLES Performing Organization Address City/[facility]/ZIP Co de Phone Number [facility] [place] [address] * Antibody screen (09/15/2020 10:09 AM EST) Pathologist [facility] Ab Screen Interp Negative [facility] Expires at [id number] on: 09/18/2020 [facility] Blood specimen (specimen) 09/15/2020 10:09 AM EST 09/15/2020 10:14 AM EST Narrative Resulting Agency Comment Spec In Lab Esau Rahman MD BLOOD BANK LAB OR DERABLES Performing Organization Address City/[facility]/ZIP Co de Phone Number [facility] [place] [address] * ABO/Rh Typing (09/15/2020 10:09 AM EST) ABORH Type O Pos [facility] Blood specimen (specimen) 09/15/2020 10:09 AM EST 09/15/2020 10:14 AM EST Narrative Resulting Agency Comment Spec In Lab Esau Rahman MD BLOOD BANK LAB OR DERABLES Performing Organization Address City/[facility]/ZIP Co de Phone Number [facility] [place] [address] * POCT Glucose (09/15/2020 8:01 AM EST) Pathologist [facility] Glucose, POC 137 65 - 199 mg/dL [facility] Comment: Supplemental ranges: <140 mg/dL before meals <180 mg/dL all other times of the day Blood specimen (specimen) 09/15/2020 8:01 AM EST 09/15/2020 8:01 AM EST Abiodun Chun MD POINT OF CARE TEST O RDERABLES [facility] [facility] [place] [address] * (ABNORMAL) Differential, Automated (09/15/2020 4:45 AM EST) Neutrophil % 56.0 % [facility] Neutrophil Absolute 3.84 1.70 - 6.10 x10(3)/[facility] LAB[facility]AT[facility] Lymph % 27.9 % [facility] Lymphocytes Abs 1.9 0.9 - 3.2 x10(3)/[facility]OR[facility] Monocyte % 8.4 % [facility] Monocyte Abs 0.6 0.3 - 0.9 x10(3)/[facility] LABORATORY Eos % 5.5 % [facility] Eosinophils Abs 0.4 0.0 - 0.4 x10(3)/[facility] LABORATORY Basophil % 1.0 % [facility] Baso Absolute 0.1 0.0 - 0.1 x10(3)/ L [facility] Immature Gran % 1.20 % [facility] Comment: Immature granulocytes(IG's)percentage and absolute count will include metamyelocytes, myelocytes, and promyelocytes. Blood smears from CBCs yielding IG's will be scanned manually for concordance. If this scan disagrees with the automated IG or if promyelocytes are noted, a manual differential will be performed. Immature Gran Absolute 0.08(H) 0.00 - 0.04 x10(3)/ L [facility] Blood specimen (specimen) 09/15/2020 4:45 AM EST 09/15/2020 5:15 AM EST Narrative Resulting Agency Comment Spec In Lab Carol Reyna MD HEMATOLOGY ORDERABLES [facility] [place] [address] * (ABNORMAL) Hemogram (09/15/2020 4:45 AM EST) White Blood Cell 6.9 4.0 - 9.5 x10(3)/mc L [facility] Red Blood Cell 3.93(L) 4.00 - 5.21 x10(6)/mc L [facility] Hemoglobin 8.5(L) 11.7 - 15.5 gm/dL [facility] Hematocrit 28.2(L) 35.7 - 45.8 % [facility] Mean Cell Volume 71.8(L) 82.6 - 94.4 fL [facility] Mean Cell Hemoglobin 21.6(L) 27.1 - 32.0 pg [facility] Mean Cell Hemoglobin Concentration 30.1(L) 31.7 - 35.0 gm/dL [facility] Platelet 316 145 - 357 x10(3)/ L [facility] RDW Standard Deviation 56.9(H) 37.0 - 46.0 [facility] RDW coefficient of variation 23.0(H) 11.5 - 14.1 % [facility] Mean Platelet Volume 10.2 7.6 - 12.9 [facility]OR[facility]ORY NRBC% auto 0.0 % [facility] NRBC Absolute 0.000 0.000 - 0.000 x10(3)/mc L [facility] Blood specimen (specimen) 09/15/2020 4:45 AM EST 09/15/2020 5:15 AM EST Narrative Resulting Agency Comment Spec In Lab Carol Reyna MD HEMATOLOGY ORDERABLES [facility] [place] [address] * Magnesium (09/15/2020 4:45 AM EST) Magnesium 0.92 0.69 - 1.07 mmol/L [facility] Blood specimen (specimen) 09/15/2020 4:45 AM EST 09/15/2020 5:15 AM EST Narrative Resulting Agency Comment Spec In Lab Amarilys Cerna MD CHEMISTRY ORDERABLES [facility] [place] [address] * (ABNORMAL) BMP w/fasting Glucose (09/15/2020 4:45 AM EST) Pathologist [facility] Glucose Fasting 164(H) 65 - 99 mg/dL [facility] Comment: ?Fasting* Glucose Interpretive Criteria [...] of Diabetes Mellitus, Position Statement from the [place] [employer]. ??Diabetes Care, Volume 33, Supplement 1, Aug 2009 Blood Urea Nitrogen 16 8 - 18 mg/dL [facility] Creatinine 0.99 0.70 - 1.20 mg/dL [facility] Sodium 139 135 - 145 mmol/L [facility] Potassium 4.2 3.5 - 5.0 mmol/L [facility] Comment: Please note: ??Patients with WBC >100,000 may have falsely elevated Potassium levels. ??For accurate Potassium quantification in these patients send serum separator tube (gold top) for subsequent determinations. ??Contact the Clinical Chemistry Laboratory if there are any questions. Chloride 106 98 - 107 mmol/L [facility] Carbon Dioxide 24 22 - 31 mmol/L [facility] Anion Gap 9 5 - 15 mmol/L [facility] Calcium 9.0 8.5 - 10.5 mg/dL [facility] Est Glomerular Filtration Rate 54(L) >=60 mL/min/1. 73 m?? [facility] CHEMISTRY ORDERABLES Performing Organization Address [facility] de Phone Number [facility] [place] [address] * APTT (09/15/2020 4:45 AM EST) Partial Thromboplastin Time 26 25 - 37 sec [facility] Comment: The PTT is NOT appropriate for heparin monitoring. Use the Anti-Xa level for heparin monitoring (HEP UFH) or LMWH monitoring (HEP LMW). A PTT less than 37 seconds generally indicates adequate hemostasis. Blood specimen (specimen) 09/15/2020 4:45 AM EST 09/15/2020 5:15 AM EST Narrative Resulting Agency Comment Spec In Lab Amarilys Cenra MD HEMATOLOGY ORDERABLE S Performing Organization Address [facility] Co de Phone Number [facility] [place] [address] * Prothrombin Time (09/15/2020 4:45 AM EST) Prothrombin Time 11.2 9.4 - 12.5 sec [facility] International Normalization Ratio 1.0 [facility] Comment: An INR [...] ORDERABLE S Performing Organization Address [facility]/ZIP Co de Phone Number [facility] [place] [address] * POCT Glucose (09/15/2020 4:27 AM EST) Glucose, POC 180 65 - 199 mg/dL [facility] Comment: Supplemental ranges: <140 mg/dL before meals <180 mg/dL all other times of the day Blood specimen (specimen) 09/15/2020 4:27 AM EST 09/15/2020 4:27 AM EST Abiodun Chun MD POINT OF CARE TEST O RDERABLES [facility] [place] [address] * POCT Glucose (09/15/2020 12:07 AM EST) Glucose, POC 189 65 - 199 mg/dL [facility] Comment: Supplemental ranges: <140 mg/dL before meals <180 mg/dL all other times of the day Blood specimen (specimen) 09/15/2020 12:07 AM EST 09/15/2020 12:07 AM EST Abiodun Chun MD POINT OF CARE TEST O ISAIAH Performing Organization Address [facility] Co de Phone Number [facility] [place] [address] * (ABNORMAL) POCT Glucose (09/14/2020 8:27 PM EST) Glucose, POC 218(H) 65 - 199 mg/dL [facility] Comment: Supplemental ranges: <140 mg/dL before meals <180 mg/dL all other times of the day Blood specimen (specimen) 09/14/2020 8:27 PM EST 09/14/2020 8:27 PM EST Abiodun Chun MD POINT OF CARE TEST O ISAIAH Performing Organization Address [facility] de Phone Number [facility] [place] [address] * POCT Glucose (09/14/2020 5:13 PM EST) Glucose, POC 177 65 - 199 mg/dL [facility] Comment: Supplemental ranges: <140 mg/dL before meals <180 mg/dL all other times of the day Blood specimen (specimen) 09/14/2020 5:13 PM EST 09/14/2020 5:13 PM EST Abiodun Chun MD POINT OF CARE TEST O ISAIAH Performing Organization Address [facility] Co de Phone Number [facility] [place] [address] * POCT Glucose (09/14/2020 12:31 PM EST) Glucose, POC 168 65 - 199 mg/dL [facility] Comment: Supplemental ranges: <140 mg/dL before meals <180 mg/dL all other times of the day Blood specimen (specimen) 09/14/2020 12:31 PM EST 09/14/2020 12:31 PM EST Abiodun Chun MD POINT OF CARE TEST O RDERABLES [facility] [place] [address] * CT Angiogram Abdomen & Pelvis w [...] ? Electronically signed by: Jos Collins DO, [facility] ([phone]), at 09/14/2020 1:47 PM Narrative 09/14/2020 1:47 [...] ? Electronically signed by: Raymundo Trivedi MD, [facility] ([phone]), at 09/14/2020 2:29 PM Narrative 09/14/2020 2:29 [...] three sinuses of Valsalva, set equidistant: ?? GRE[place]DIAN 9 cranial 5 Kikmeul-gc-ihaayhaq height: Right: 12.7 mm Left: 14.1 mm [...] the three sinuses of Valsalva, set equidistant: GRE[place] 9 cranial 5 Mnrxctd-zu-gnxdcprh height: Right: 12.7 mm Left: 14.1 mm [...] below. Electronically signed by: Raymundo Trivedi MD, [facility]([phone]), at 09/14/2020 2:29 PM Amarilys Cerna MD IMG CT ORDERABLES * POCT Glucose (09/14/2020 7:38 AM EST) Glucose, POC 169 65 - 199 mg/dL [facility] Comment: Supplemental ranges: <140 mg/dL before meals <180 mg/dL all other times of the day Blood specimen (specimen) 09/14/2020 7:38 AM EST 09/14/2020 7:38 AM EST Abiodun Chun MD POINT OF CARE TEST O RDERABLES [facility] [place] [address] * Scan, Peripheral Blood (09/14/2020 3:51 AM EST) Pathologist [facility] Plat estimate Normal [facility] RBC Morphology Abnormal [facility] Microcyte 1-5 /HPF [facility] Ovalocytes 1-5 /HPF [facility] Blood specimen (specimen) 09/14/2020 3:51 AM EST 09/14/2020 4:09 AM EST Narrative Resulting Agency Comment Spec In Lab Carol Reyna MD HEMATOLOGY ORDERABLES [facility] [place] [address] * (ABNORMAL) Differential, Automated (09/14/2020 3:51 AM EST) Pathologist [facility] Neutrophil % 54.5 % [facility] Neutrophil Absolute 3.56 1.70 - 6.10 x10(3)/mc L [facility] Lymph % 27.2 % [facility] Lymphocytes Abs 1.8 0.9 - 3.2 x10(3)/mc L [facility] Monocyte % 9.0 % [facility] Monocyte Abs 0.6 0.3 - 0.9 x10(3)/mc L [facility] Eos % 7.6 % [facility] Eosinophils Abs 0.5(H) 0.0 - 0.4 x10(3)/mc L [facility] Basophil % 1.1 % [facility] Baso Absolute 0.1 0.0 - 0.1 x10(3)/mc L [facility] Immature Gran % 0.60 % [facility] Comment: Immature granulocytes(IG's)percentage and absolute count will include metamyelocytes, myelocytes, and promyelocytes. Blood smears from CBCs yielding IG's will be scanned manually for concordance. If this scan disagrees with the automated IG or if promyelocytes are noted, a manual differential will be performed. Immature Gran Absolute 0.04 0.00 - 0.04 x10(3)/ L [facility] Blood specimen (specimen) 09/14/2020 3:51 AM EST 09/14/2020 4:09 AM EST Narrative Resulting Agency Comment Spec In Lab Carol Reyna MD HEMATOLOGY ORDERABLES [facility] [place] [address] * (ABNORMAL) Hemogram (09/14/2020 3:51 AM EST) White Blood Cell 6.5 4.0 - 9.5 x10(3)/[facility] LABORAT[facility] Red Blood Cell 3.99(L) 4.00 - 5.21 x10(6)/[facility] Hemoglobin 8.4(L) 11.7 - 15.5 gm/dL [facility] Hematocrit 28.7(L) 35.7 - 45.8 % [facility] Mean Cell Volume 71.9(L) 82.6 - 94.4 fL [facility] Mean Cell Hemoglobin 21.1(L) 27.1 - 32.0 pg [facility] Mean Cell Hemoglobin Concentration 29.3(L) 31.7 - 35.0 gm/dL [facility] Platelet 325 145 - 357 x10(3)/[facility] LABORATORY RDW Standard Deviation 55.1(H) 37.0 - 46.0 [facility] LABORATORY RDW coefficient of variation 22.2(H) 11.5 - 14.1 % [facility] Mean Platelet Volume 10.0 7.6 - 12.9 [facility] LABORATORY NRBC% auto 0.3 % [facility] NRBC Absolute 0.020(H) 0.000 - 0.000 x10(3)/[facility] Blood specimen (specimen) 09/14/2020 3:51 AM EST 09/14/2020 4:09 AM EST Narrative Resulting Agency Comment Spec In Lab Carol Reyna MD HEMATOLOGY ORDERABLES [facility] [place] [address] * Magnesium (09/14/2020 3:51 AM EST) Pathologist [facility] Magnesium 0.96 0.69 - 1.07 mmol/L [facility] Blood specimen (specimen) 09/14/2020 3:51 AM EST 09/14/2020 4:09 AM EST Narrative Resulting Agency Comment Spec In Lab Amarilys Cerna MD CHEMISTRY ORDERABLES Performing Organization Address [facility] Co de Phone Number [facility] [place] [address] * (ABNORMAL) Hepatic Function Panel (09/14/2020 3:51 AM EST) Pathologist [facility] Protein, Total 6.2 6.1 - 8.0 gm/dL [facility] Albumin 4.2 3.2 - 5.2 gm/dL [facility] Aspartate Aminotransferase 24 0 - 30 unit/L [facility] Alanine Aminotransferase 28 0 - 30 unit/L [facility] Alkaline Phosphatase 111(H) 35 - 105 unit/L [facility] Bilirubin, Total 1.0 0.2 - 1.3 mg/dL [facility] Bilirubin, Direct 0.3 0.0 - 0.3 mg/dL [facility] Blood specimen (specimen) 09/14/2020 3:51 AM EST 09/14/2020 4:09 AM EST Narrative Resulting Agency Comment Spec In Lab Amarilys Cerna MD CHEMISTRY ORDERABLES Performing Organization Address City/[facility]/ZIP Co de Phone Number [facility] [place] [address] * (ABNORMAL) BMP w/fasting Glucose (09/14/2020 3:51 AM EST) [facility] Signature Glucose Fasting 159(H) 65 - 99 mg/dL [facility] Comment: ?Fasting* Glucose Interpretive Criteria [...] of Diabetes Mellitus, Position Statement from the [place] [employer]. ??Diabetes Care, Volume 33, Supplement 1, Aug 2009 Blood Urea Nitrogen 13 8 - 18 mg/dL [facility] Creatinine 1.11 0.70 - 1.20 mg/dL [facility] Sodium 140 135 - 145 mmol/L [facility] Potassium 4.4 3.5 - 5.0 mmol/L [facility] Comment: Please note: ??Patients with WBC >100,000 may have falsely elevated Potassium levels. ??For accurate Potassium quantification in these patients send serum separator tube (gold top) for subsequent determinations. ??Contact the Clinical Chemistry Laboratory if there are any questions. Chloride 107 98 - 107 mmol/L [facility] Carbon Dioxide 24 22 - 31 mmol/L [facility] Anion Gap 9 5 - 15 mmol/L [facility] Calcium 8.9 8.5 - 10.5 mg/dL [facility] Est Glomerular Filtration Rate 47(L) >=60 mL/min/1. 73 m?? [facility] [...] CHEMISTRY ORDERABLES Performing Organization Address [facility] Co de Phone Number [facility] [place] [address] * APTT (09/14/2020 3:51 AM EST) Partial Thromboplastin Time 28 25 - 37 sec [facility] Comment: The PTT is NOT [...] ORDERABLE S Performing Organization Address [facility] Co de Phone Number [facility] [place] [address] * Prothrombin Time (09/14/2020 3:51 AM EST) Prothrombin Time 12.2 9.4 - 12.5 sec [facility] International Normalization Ratio 1.1 [facility] Comment: An INR [...] Lab Amarilys Cerna MD HEMATOLOGY ORDERABLE S [facility] [place] [address] * POCT Glucose (09/14/2020 3:18 AM EST) Glucose, POC 155 65 - 199 mg/dL [facility] Comment: Supplemental ranges: <140 mg/dL before meals <180 mg/dL all other times of the day Blood specimen (specimen) 09/14/2020 3:18 AM EST 09/14/2020 3:18 AM EST Abiodun Chun MD POINT OF CARE TEST O RDERABLES Performing Organization Address [facility]/ZIP Co de Phone Number [facility] [place] [address] * POCT Glucose (09/13/2020 11:31 PM EST) Glucose, POC 198 65 - 199 mg/dL [facility] Comment: Supplemental ranges: <140 mg/dL before meals <180 mg/dL all other times of the day Blood specimen (specimen) 09/13/2020 11:31 PM EST 09/13/2020 11:31 PM EST Abiodun Chun MD POINT OF CARE TEST O ISAIAH Performing Organization Address City/[facility]/ZIP Co de Phone Number [facility] [place] [address] * ABORH Recheck Status (09/13/2020 10:50 PM EST) ABORH Type Recheck Completed [facility] Blood specimen (specimen) 09/13/2020 10:50 PM EST 09/13/2020 10:58 PM EST Narrative Resulting Agency Comment Spec In Lab Carol Reyna MD BLOOD BANK LAB ORDERABLES Performing Organization Address City/[facility]/ZIP Co de Phone Number [facility] [place] [address] * Antibody screen (09/13/2020 10:50 PM EST) Ab Screen Interp Negative [facility] Expires at [id number] on: 09/16/2020 [facility] Blood specimen (specimen) 09/13/2020 10:50 PM EST 09/13/2020 10:58 PM EST Narrative Resulting Agency Comment Spec In Lab Carol Reyna MD BLOOD BANK LAB ORDERABLES Performing Organization Address City/[facility]/ZIP Co de Phone Number [facility] [place] [address] * ABO/Rh Typing (09/13/2020 10:50 PM EST) ABORH Type O Pos [facility] Blood specimen (specimen) 09/13/2020 10:50 PM EST 09/13/2020 10:58 PM EST Narrative Resulting Agency Comment Spec In Lab Carol Reyna MD BLOOD BANK LAB ORDERABLES Performing Organization Address City/[facility]/ZIP Co de Phone Number [facility] [place] [address] * (ABNORMAL) Hemoglobin and Hematocrit, blood (09/13/2020 10:50 PM EST) Hemoglobin 8.8(L) 11.7 - 15.5 gm/dL [facility] Hematocrit 30.0(L) 35.7 - 45.8 % [facility] Blood specimen (specimen) 09/13/2020 10:50 PM EST 09/13/2020 11:05 PM EST Narrative Resulting Agency Comment Spec In Lab Abiodun Chun MD HEMATOLOGY ORDERABLE S Performing Organization Address [facility]/ZIP Co de Phone Number [facility] [place] [address] * (ABNORMAL) POCT Glucose (09/13/2020 8:00 PM EST) Glucose, POC 203(H) 65 - 199 mg/dL [facility] Comment: Supplemental ranges: <140 mg/dL before meals <180 mg/dL all other times of the day Blood specimen (specimen) 09/13/2020 8:00 PM EST 09/13/2020 8:00 PM EST Abiodun Chun MD POINT OF CARE TEST O RDERABLES Performing Organization Address [facility] Co de Phone Number [facility] [place] [address] * POCT Glucose (09/13/2020 4:43 PM EST) Glucose, POC 192 65 - 199 mg/dL [facility] Comment: Supplemental ranges: <140 mg/dL before meals <180 mg/dL all other times of the day Blood specimen (specimen) 09/13/2020 4:43 PM EST 09/13/2020 4:43 PM EST Abiodun Chun MD POINT OF CARE TEST O RDERABLES Performing Organization Address [facility]/ZIP Co de Phone Number [facility] [place] [address] * (ABNORMAL) POCT Glucose (09/13/2020 11:37 AM EST) Glucose, POC 212(H) 65 - 199 mg/dL [facility] Comment: Supplemental ranges: <140 mg/dL before meals <180 mg/dL all other times of the day Blood specimen (specimen) 09/13/2020 11:37 AM EST 09/13/2020 11:37 AM EST Abiodun Chun MD POINT OF CARE TEST O RDERABLES Performing Organization Address City/[facility]/ZIP Co de Phone Number [facility] [place] [address] * Potassium (09/13/2020 11:25 AM EST) Potassium 4.2 3.5 - 5.0 mmol/L [facility] [...] MD CHEMISTRY ORDERABL ES Performing Organization Address [facility] Co de Phone Number [facility] [place] [address] * (ABNORMAL) Hemoglobin and Hematocrit, blood (09/13/2020 11:25 AM EST) Hemoglobin 9.0(L) 11.7 - 15.5 gm/dL [facility] Hematocrit 30.2(L) 35.7 - 45.8 % [facility] Blood specimen (specimen) 09/13/2020 11:25 AM EST 09/13/2020 11:39 AM EST Narrative Resulting Agency Comment Spec In Lab Abiodun Chun MD HEMATOLOGY ORDERABLE S Performing Organization Address City/[facility]/ZIP Co de Phone Number [facility] [place] [address] * POCT Glucose (09/13/2020 7:16 AM EST) Glucose, POC 141 65 - 199 mg/dL [facility] Comment: Supplemental ranges: <140 mg/dL before meals <180 mg/dL all other times of the day Blood specimen (specimen) 09/13/2020 7:16 AM EST 09/13/2020 7:16 AM EST Abiodun Chun MD POINT OF CARE TEST O RDERABLES [facility] [place] [address] * Smear Review Report (09/13/2020 5:39 AM EST) Smear Review Report [id number] ? Location: [facility]; [facility] [place]; The signing pathologist has (i) examined the relevant preparation(s) for the specimen(s) and (ii) rendered or confirmed the diagnosis(es). . ? Smear Review DIAGNOSIS Peripheral blood, smear review: - Microcytic anemia compatible with iron deficiency (see Discussion). Electronically signed by: ??Evette HARRY, Tracy Conteh Verified: ??09/13/2020 ?Hematopathologist Performed at: ??-[facility] Dept. of Pathology, [place], [place] DISCUSSION The RBC morphology taken together [...] and peripheral blood smear requested for evaluation. [facility] 09/13/2020 5:39 AM EST Abigail Todd MD HEMATOLOGY ORDERABLE S Performing Organization Address City/[facility]/ZIP Co de Phone Number [facility] [place] [address] * Scan, Peripheral Blood (09/13/2020 5:39 AM EST) Pathologist [facility] Plat estimate Normal [facility] RBC Morphology Abnormal [facility] Microcyte 1-5 /HPF [facility] Hypochromia Slight [facility] Ovalocytes 6-10 /HPF [facility] Tear Cell 1-5 /HPF [facility] Blood specimen (specimen) 09/13/2020 5:39 AM EST 09/13/2020 5:44 AM EST Narrative Resulting Agency Comment Spec In Lab Carol Reyna MD HEMATOLOGY ORDERABLES Performing Organization Address City/[facility]/ZIP Co de Phone Number [facility] [place] [address] * Differential, Automated (09/13/2020 5:39 AM EST) Pathologist [facility] Neutrophil % 59.7 % [facility] Neutrophil Absolute 3.66 1.70 - 6.10 x10(3)/[facility] LABORATORY Lymph % 23.6 % [facility] Lymphocytes Abs 1.4 0.9 - 3.2 x10(3)/[facility] LABORATORY Monocyte % 8.8 % [facility] Monocyte Abs 0.5 0.3 - 0.9 x10(3)/[facility] LABORATORY Eos % 6.8 % [facility] Eosinophils Abs 0.4 0.0 - 0.4 x10(3)/[facility] LABORATORY Basophil % 0.8 % [facility] Baso Absolute 0.0 0.0 - 0.1 x10(3)/[facility] LABORATORY Immature Gran % 0.30 % [facility] Comment: Immature granulocytes(IG's)percentage and absolute count will include metamyelocytes, myelocytes, and promyelocytes. Blood smears from CBCs yielding IG's will be scanned manually for concordance. If this scan disagrees with the automated IG or if promyelocytes are noted, a manual differential will be performed. Immature Gran Absolute 0.02 0.00 - 0.04 x10(3)/[facility] LABORATORY Blood specimen (specimen) 09/13/2020 5:39 AM EST 09/13/2020 5:44 AM EST Narrative Resulting Agency Comment Spec In Lab Carol Reyna MD HEMATOLOGY ORDERABLES [facility] [place] [address] * (ABNORMAL) Hemogram (09/13/2020 5:39 AM EST) White Blood Cell 6.1 4.0 - 9.5 x10(3)/mc L [facility] Red Blood Cell 4.01 4.00 - 5.21 x10(6)/ L [facility] Hemoglobin 8.5(L) 11.7 - 15.5 gm/dL [facility] Hematocrit 28.2(L) 35.7 - 45.8 % [facility] Mean Cell Volume 70.3(L) 82.6 - 94.4 fL [facility] Mean Cell Hemoglobin 21.2(L) 27.1 - 32.0 pg [facility] Mean Cell Hemoglobin Concentration 30.1(L) 31.7 - 35.0 gm/dL [facility] Platelet 315 145 - 357 x10(3)/mc L [facility] RDW Standard Deviation 51.5(H) 37.0 - 46.0 [facility] LABORATORY RDW coefficient of variation 20.8(H) 11.5 - 14.1 % [facility] Mean Platelet Volume 9.8 7.6 - 12.9 [facility] LABORATORY NRBC% auto 0.3 % [facility] LABORATORY NRBC Absolute 0.020(H) 0.000 - 0.000 x10(3)/mc L [facility] Blood specimen (specimen) 09/13/2020 5:39 AM EST 09/13/2020 5:44 AM EST Narrative Resulting Agency Comment Spec In Lab Carol Reyna MD HEMATOLOGY ORDERABLES Performing Organization Address City/[facility]/[place] [address] * Magnesium (09/13/2020 5:39 AM EST) Magnesium 1.04 0.69 - 1.07 mmol/L [facility] Blood specimen (specimen) 09/13/2020 5:39 AM EST 09/13/2020 5:44 AM EST Narrative Resulting Agency Comment Spec In Lab Amarilys Cerna MD CHEMISTRY ORDERABLES Performing Organization Address City/[facility]/ZIP Co de Phone Number [facility] [place] [address] * (ABNORMAL) Hepatic Function Panel (09/13/2020 5:39 AM EST) Protein, Total 6.3 6.1 - 8.0 gm/dL [facility] Albumin 4.0 3.2 - 5.2 gm/dL [facility] Aspartate Aminotransferase 41(H) 0 - 30 unit/L [facility] Comment:result rechecked-[place] Alanine Aminotransferase 30 0 - 30 unit/L [facility] Alkaline Phosphatase 110(H) 35 - 105 unit/L [facility] Bilirubin, Total 1.9(H) 0.2 - 1.3 mg/dL [facility] Bilirubin, Direct 0.4(H) 0.0 - 0.3 mg/dL [facility] Blood specimen (specimen) 09/13/2020 5:39 AM EST 09/13/2020 5:44 AM EST Narrative Resulting Agency Comment Spec In Lab Amarilys Cerna MD CHEMISTRY ORDERABLES [facility] [place] [address] * (ABNORMAL) BMP w/fasting Glucose (09/13/2020 5:39 AM EST) Glucose Fasting 136(H) 65 - 99 mg/dL [facility] Comment: ?Fasting* Glucose Interpretive Criteria [...] of Diabetes Mellitus, Position Statement from the [place] [employer]. ??Diabetes Care, Volume 33, Supplement 1, Aug 2009 Blood Urea Nitrogen 12 8 - 18 mg/dL [facility] Creatinine 0.98 0.70 - 1.20 mg/dL [facility] Sodium 141 135 - 145 mmol/L [facility] Potassium 4.3 3.5 - 5.0 mmol/L [facility] Comment: Please note: ??Patients with WBC >100,000 may have falsely elevated Potassium levels. ??For accurate Potassium quantification in these patients send serum separator tube (gold top) for subsequent determinations. ??Contact the Clinical Chemistry Laboratory if there are any questions. Chloride 108(H) 98 - 107 mmol/L [facility] Carbon Dioxide 23 22 - 31 mmol/L [facility] Anion Gap 10 5 - 15 mmol/L [facility] Calcium 8.8 8.5 - 10.5 mg/dL [facility] Est Glomerular Filtration Rate 54(L) >=60 mL/min/1. 73 m?? [facility] [...] In Lab Amarilys Cerna MD CHEMISTRY ORDERABLES [facility] [place] [address] * APTT (09/13/2020 5:39 AM EST) Partial Thromboplastin Time 29 25 - 37 sec [facility] Comment: The PTT is NOT appropriate for heparin monitoring. Use the Anti-Xa level for heparin monitoring (HEP UFH) or LMWH monitoring (HEP LMW). A PTT less than 37 seconds generally indicates adequate hemostasis. Blood specimen (specimen) 09/13/2020 5:39 AM EST 09/13/2020 5:44 AM EST Narrative Resulting Agency Comment Spec In Lab Amarilys Cerna MD HEMATOLOGY ORDERABLE S Performing Organization Address City/[facility]/ZIP Co de Phone Number [facility] [place] [address] * (ABNORMAL) Prothrombin Time (09/13/2020 5:39 AM EST) Prothrombin Time 12.8(H) 9.4 - 12.5 sec [facility] International Normalization Ratio 1.1 [facility] Comment: An INR [...] ORDERABLE S Performing Organization Address [facility]/ZIP Co de Phone Number [facility] [place] [address] * Peripheral Smear Review (09/13/2020 5:39 AM EST) Peripheral Smear Review See Comment [facility] Comment: When completed by the Pathologist, report [id number] will display under Hematopathology Reports. Blood specimen (specimen) 09/13/2020 5:39 AM EST 09/13/2020 5:44 AM EST Narrative Resulting Agency Comment Spec In Lab Abiodun Chun MD HEMATOLOGY ORDERABLE S Performing Organization Address City/[facility]/ZIP Co de Phone Number [facility] [place] [address] * POCT Glucose (09/13/2020 4:02 AM EST) Glucose, POC 113 65 - 199 mg/dL [facility] Comment: Supplemental ranges: <140 mg/dL before meals <180 mg/dL all other times of the day Blood specimen (specimen) 09/13/2020 4:02 AM EST 09/13/2020 4:02 AM EST Abiodun Chun MD POINT OF CARE TEST O RDERABLES Performing Organization Address City/[facility]/ZIP Co de Phone Number [facility] [place] [address] * POCT Glucose (09/12/2020 11:46 PM EST) Glucose, POC 118 65 - 199 mg/dL [facility] Comment: Supplemental ranges: <140 mg/dL before meals <180 mg/dL all other times of the day Blood specimen (specimen) 09/12/2020 11:46 PM EST 09/12/2020 11:46 PM EST Abiodun Chun MD POINT OF CARE TEST O RDERABLES Performing Organization Address [facility] Co de Phone Number [facility] [place] [address] * (ABNORMAL) Hemoglobin and Hematocrit, blood (09/12/2020 10:17 PM EST) Pathologist [facility] Hemoglobin 8.8(L) 11.7 - 15.5 gm/dL [facility] Hematocrit 29.2(L) 35.7 - 45.8 % [facility] Blood specimen (specimen) 09/12/2020 10:17 PM EST 09/12/2020 10:27 PM EST Narrative Resulting Agency Comment Spec In Lab Abiodun Chun MD HEMATOLOGY ORDERABLE S Performing Organization Address City/[facility]/ZIP Co de Phone Number [facility] [place] [address] * Potassium (09/12/2020 10:17 PM EST) Potassium 4.2 3.5 - 5.0 mmol/L [facility] [...] Chun MD CHEMISTRY ORDERABLES Performing Organization Address [facility]/ZIP Co de Phone Number [facility] [place] [address] * POCT Glucose (09/12/2020 7:53 PM EST) [facility] Glucose, POC 159 65 - 199 mg/dL [facility] Comment: Supplemental ranges: <140 mg/dL before meals <180 mg/dL all other times of the day Blood specimen (specimen) 09/12/2020 7:53 PM EST 09/12/2020 7:53 PM EST Abiodun Chun MD POINT OF CARE TEST O RDERABLES Performing Organization Address [facility]/ZIP Co de Phone Number [facility] [place] [address] * (ABNORMAL) Hemoglobin and Hematocrit, blood (09/12/2020 7:12 PM EST) [facility] Hemoglobin 8.7(L) 11.7 - 15.5 gm/dL [facility] Hematocrit 28.3(L) 35.7 - 45.8 % [facility] Blood specimen (specimen) 09/12/2020 7:12 PM EST 09/12/2020 8:17 PM EST Narrative Resulting Agency Comment Spec In Lab Amarilys Cerna MD HEMATOLOGY ORDERABLE S Performing Organization Address [facility] de Phone Number [facility] [place] [address] * POCT Glucose (09/12/2020 3:55 PM EST) Glucose, POC 131 65 - 199 mg/dL [facility] Comment: Supplemental ranges: <140 mg/dL before meals <180 mg/dL all other times of the day Blood specimen (specimen) 09/12/2020 3:55 PM EST 09/12/2020 3:55 PM EST Abiodun Chun MD POINT OF CARE TEST O RDERABLES Performing Organization Address [facility] Co de Phone Number [facility] [place] [address] * Specimen to Pathology (09/12/2020 2:45 PM EST) AP Specimen 09/12/2020 2:45 PM EST 09/12/2020 2:45 PM EST Narrative [facility] - 09/12/2020 2:45 PM EST Specimen requisition ordered. ??Separate Pathology report to follow Abiodun Chun MD PATHOLOGY/CYTOLOGY O RDROBIN Performing Organization Address [facility] de Phone Number [facility] [place] [address] * Surgical Pathology Report (09/12/2020 2:04 PM EST) Final Diagnosis [id number] ? Location: [facility]; [facility]; A The signing pathologist has (i) examined the relevant preparation(s) for the specimen(s) and (ii) rendered or confirmed the diagnosis(es). . ?Surgical Pathology DIAGNOSIS Stomach, ??biopsy: Gastric antral and fundic gland mucosa with nonspecific reactive gastropathy. No H. pylori-like microorganism is seen. Electronically signed by: ??Chhaya Sandra MD Verified: ??09/20/2020 ?Pathologist Performed at: ??-[facility] Dept. of Pathology, [place], [place] SPECIMEN(S) SUBMITTED A - gastric biopsies. ??R/O H. Pylori, biopsy (Multiple) CLINICAL INFORMATION [place] SPECIMEN PROCESSING A - Labeled/Fixative: Gastric biopsies, rule out H. pylori, formalin. Quantity/Size: Multiple, ranging from 0.2-0.4 cm. Tissue Description: Soft, dowell tissues. Sections/Processi ng: Submitted en toto ??in 2 cassettes labeled A1-A2. ??sns 09/20/2020 2:05 PM EST [facility] GI Biopsy 09/12/2020 2:04 PM EST 09/12/2020 2:04 PM EST Mane Avila MD PATHOLOGY/CYTOLOGY O RDERABLES Performing Organization Address [facility]/ZIP Co de Phone Number [facility] [place] [address] * Potassium (09/12/2020 1:11 PM EST) Potassium 3.9 3.5 - 5.0 mmol/L [facility] [...] MD CHEMISTRY ORDERABL ES Performing Organization Address [facility]/ZIP Co de Phone Number [facility] [place] [address] * (ABNORMAL) Hemoglobin and Hematocrit, blood (09/12/2020 1:11 PM EST) Pathologist [facility] Hemoglobin 8.4(L) 11.7 - 15.5 gm/dL [facility] Hematocrit 27.9(L) 35.7 - 45.8 % [facility] Blood specimen (specimen) 09/12/2020 1:11 PM EST 09/12/2020 1:17 PM EST Narrative Resulting Agency Comment Spec In Lab Amarilys Cerna MD HEMATOLOGY ORDERABLE S [facility] [place] [address] * UPPER GI ENDOSCOPY (09/12/2020 12:57 PM EST) [facility] UPPER GI ENDOSCOPY [facility] Endoscopy Procedure Date: 09/12/2020 12:57 PM ? Patient Name: Shannan Chaudhary ? N: [id number] ? Date of : 1940 ? Age: 80 ? Order #: [id number] ? Instrument Name: [id number] ? Procedure: ? Upper GI endoscopy Indications: [...] * COLONOSCOPY (09/12/2020 12:56 PM EST) COLONOSCOPY [facility] Endoscopy Procedure Date: 09/12/2020 12:56 PM ? Patient Name: Shannan Chaudhary ? Date of : 1940 ? Age: 80 ? Order #: [id number] ? Instrument Name: [id number] ? Procedure: ? Colonoscopy Indications: ? Iron deficiency anemia Providers: ? Mane Avila MD, Ahsa Martins ? Isabel Powell, Harris De Guzman ? Mary Referring MD: ? Medicines: ? [...] Glucose, POC 125 65 - 199 mg/dL [facility] Comment: Supplemental ranges: <140 mg/dL before meals <180 mg/dL all other times of the day Blood specimen (specimen) 09/12/2020 11:55 AM EST 09/12/2020 11:55 AM EST Abiodun Chun MD POINT OF CARE TEST O RDERABLES [facility] [place] [address] * POCT Glucose (09/12/2020 8:06 AM EST) Glucose, POC 142 65 - 199 mg/dL [facility] Comment: Supplemental ranges: <140 mg/dL before meals <180 mg/dL all other times of the day Blood specimen (specimen) 09/12/2020 8:06 AM EST 09/12/2020 8:06 AM EST Abiodun Chun MD POINT OF CARE TEST O RDERABLES Performing Organization Address [facility]/ZIP Co de Phone Number [facility] [place] [address] * (ABNORMAL) Hemoglobin and Hematocrit, blood (09/12/2020 7:47 AM EST) Hemoglobin 8.0(L) 11.7 - 15.5 gm/dL [facility] Hematocrit 26.0(L) 35.7 - 45.8 % [facility] Blood specimen (specimen) 09/12/2020 7:47 AM EST 09/12/2020 7:52 AM EST Narrative Resulting Agency Comment Spec In Lab Amarilys Cerna MD HEMATOLOGY ORDERABLE S [facility] [place] [address] * POCT Glucose (09/12/2020 4:38 AM EST) Glucose, POC 173 65 - 199 mg/dL [facility] Comment: Supplemental ranges: <140 mg/dL before meals <180 mg/dL all other times of the day Blood specimen (specimen) 09/12/2020 4:38 AM EST 09/12/2020 4:38 AM EST Abiodun Chun MD POINT OF CARE TEST O RDERABLES [facility] [place] [address] * Differential, Automated (09/12/2020 1:43 AM EST) [facility] Neutrophil % 59.2 % [facility] LABORATORY Neutrophil Absolute 4.62 1.70 - 6.10 x10(3)/[facility] LABORATORY Lymph % 25.0 % [facility] LABORATORY Lymphocytes Abs 2.0 0.9 - 3.2 x10(3)/[facility] LABORATORY Monocyte % 10.8 % [facility] LABORATORY Monocyte Abs 0.8 0.3 - 0.9 x10(3)/[facility] LABORATORY Eos % 3.7 % [facility] Eosinophils Abs 0.3 0.0 - 0.4 x10(3)/[facility] LABORATORY Basophil % 1.0 % [facility] LAB[facility]ATORY Baso Absolute 0.1 0.0 - 0.1 x10(3)/[facility] LABORATORY Immature Gran % 0.30 % [facility] Comment: Immature granulocytes(IG's)percentage and absolute count will include metamyelocytes, myelocytes, and promyelocytes. Blood smears from CBCs yielding IG's will be scanned manually for concordance. If this scan disagrees with the automated IG or if promyelocytes are noted, a manual differential will be performed. Immature Gran Absolute 0.02 0.00 - 0.04 x10(3)/[facility] LABORATORY Blood specimen (specimen) 09/12/2020 1:43 AM EST 09/12/2020 1:48 AM EST Narrative Resulting Agency Comment Spec In Lab Carol Reyna MD HEMATOLOGY ORDERABLES [facility] [place] [address] * (ABNORMAL) Hemogram (09/12/2020 1:43 AM EST) White Blood Cell 7.8 4.0 - 9.5 x10(3)/mc L [facility] Red Blood Cell 4.35 4.00 - 5.21 x10(6)/mc [facility] LABORATORY Hemoglobin 9.3(L) 11.7 - 15.5 gm/dL [facility] Hematocrit 30.8(L) 35.7 - 45.8 % [facility] Mean Cell Volume 70.8(L) 82.6 - 94.4 fL [facility] Mean Cell Hemoglobin 21.4(L) 27.1 - 32.0 pg [facility] Mean Cell Hemoglobin Concentration 30.2(L) 31.7 - 35.0 gm/dL [facility] Platelet 353 145 - 357 x10(3)/[facility] LABORATORY RDW Standard Deviation 50.0(H) 37.0 - 46.0 [facility] LABORATORY RDW coefficient of variation 19.9(H) 11.5 - 14.1 % [facility] Mean Platelet Volume 10.3 7.6 - 12.9 [facility] LABORATORY NRBC% auto 0.3 % [facility]ORATORY NRBC Absolute 0.020(H) 0.000 - 0.000 x10(3)/[facility] LABORATORY Blood specimen (specimen) 09/12/2020 1:43 AM EST 09/12/2020 1:48 AM EST Narrative Resulting Agency Comment Spec In Lab Carol Reyna MD HEMATOLOGY ORDERABLES Performing Organization Address City/[facility]/ZIP Co de Phone Number [facility] [place] [address] * Magnesium (09/12/2020 1:43 AM EST) [facility] Magnesium 1.05 0.69 - 1.07 mmol/L [facility] Blood specimen (specimen) 09/12/2020 1:43 AM EST 09/12/2020 1:48 AM EST Narrative Resulting Agency Comment Spec In Lab Amarilys Cerna MD CHEMISTRY ORDERABLES Performing Organization Address [facility] Co de Phone Number [facility] [place] [address] * (ABNORMAL) Hepatic Function Panel (09/12/2020 1:43 AM EST) [facility] Protein, Total 7.1 6.1 - 8.0 gm/dL [facility] Albumin 4.5 3.2 - 5.2 gm/dL [facility] Aspartate Aminotransferase 23 0 - 30 unit/L [facility] Alanine Aminotransferase 21 0 - 30 unit/L [facility] Alkaline Phosphatase 120(H) 35 - 105 unit/L [facility] Bilirubin, Total 2.7(H) 0.2 - 1.3 mg/dL [facility] Bilirubin, Direct 0.3 0.0 - 0.3 mg/dL [facility] Blood specimen (specimen) 09/12/2020 1:43 AM EST 09/12/2020 1:48 AM EST Narrative Resulting Agency Comment Spec In Lab Amarilys Cerna MD CHEMISTRY ORDERABLES Performing Organization Address City/[facility]/ZIP Co de Phone Number [facility] [place] [address] * (ABNORMAL) BMP w/fasting Glucose (09/12/2020 1:43 AM EST) [facility] Glucose Fasting 136(H) 65 - 99 mg/dL [facility] Comment: ?Fasting* Glucose Interpretive Criteria [...] of Diabetes Mellitus, Position Statement from the [place] [employer]. ??Diabetes Care, Volume 33, Supplement 1, Aug 2009 Blood Urea Nitrogen 17 8 - 18 mg/dL [facility] Creatinine 1.15 0.70 - 1.20 mg/dL [facility] Sodium 140 135 - 145 mmol/L [facility] Comment:result rechecked-[place] Potassium 4.2 3.5 - 5.0 mmol/L [facility] Comment: result rechecked-KS Please note: ??Patients with WBC >100,000 may have falsely elevated Potassium levels. ??For accurate Potassium quantification in these patients send serum separator tube (gold top) for subsequent determinations. ??Contact the Clinical Chemistry Laboratory if there are any questions. Chloride 102 98 - 107 mmol/L [facility] Comment:result rechecked-KS Carbon Dioxide 24 22 - 31 mmol/L [facility] Anion Gap 14 5 - 15 mmol/L [facility] Calcium 9.3 8.5 - 10.5 mg/dL [facility] Est Glomerular Filtration Rate 45(L) >=60 mL/min/1. 73 m?? [facility] [...] CHEMISTRY ORDERABLES Performing Organization Address [facility] de Phone Number [facility] [place] [id number] * APTT (09/12/2020 1:43 AM EST) Partial Thromboplastin Time 25 25 - 37 sec [facility] Comment: The PTT is NOT [...] ORDERABLE S Performing Organization Address [facility] de Phone Number [facility] [place] [address] * (ABNORMAL) Prothrombin Time (09/12/2020 1:43 AM EST) Prothrombin Time 12.9(H) 9.4 - 12.5 sec [facility] International Normalization Ratio 1.1 [facility] Comment: An INR [...] ORDERABLE S Performing Organization Address [facility]/ZIP Co de Phone Number [facility] [place] [address] * POCT Glucose (09/11/2020 11:48 PM EST) Glucose, POC 121 65 - 199 mg/dL [facility] Comment: Supplemental ranges: <140 mg/dL before meals <180 mg/dL all other times of the day Blood specimen (specimen) 09/11/2020 11:48 PM EST 09/11/2020 11:48 PM EST Abiodun Chun MD POINT OF CARE TEST O RDERABLES Performing Organization Address [facility]/ZIP Co de Phone Number [facility] [place] [address] * POCT Glucose (09/11/2020 8:19 PM EST) Glucose, POC 179 65 - 199 mg/dL [facility] Comment: Supplemental ranges: <140 mg/dL before meals <180 mg/dL all other times of the day Blood specimen (specimen) 09/11/2020 8:19 PM EST 09/11/2020 8:19 PM EST Abiodun Chun MD POINT OF CARE TEST O ISAIAH Performing Organization Address City/[facility]/ZIP Co de Phone Number [facility] [place] [address] * POCT Glucose (09/11/2020 7:40 PM EST) Glucose, POC 181 65 - 199 mg/dL [facility] Comment: Supplemental ranges: <140 mg/dL before meals <180 mg/dL all other times of the day Blood specimen (specimen) 09/11/2020 7:40 PM EST 09/11/2020 7:40 PM EST Abiodun Chun MD POINT OF CARE TEST O RDERABLES Performing Organization Address [facility] Co de Phone Number [facility] [place] [address] * (ABNORMAL) Hemoglobin and Hematocrit, blood (09/11/2020 6:22 PM EST) Hemoglobin 8.2(L) 11.7 - 15.5 gm/dL [facility] Hematocrit 26.9(L) 35.7 - 45.8 % [facility] Blood specimen (specimen) 09/11/2020 6:22 PM EST 09/11/2020 6:55 PM EST Narrative Resulting Agency Comment Spec In Lab Amarilys Cerna MD HEMATOLOGY ORDERABLE S Performing Organization Address [facility] Co de Phone Number [facility] [place] [address] * (ABNORMAL) POCT Glucose (09/11/2020 5:17 PM EST) Glucose, POC 285(H) 65 - 199 mg/dL [facility] Comment: Supplemental ranges: <140 mg/dL before meals <180 mg/dL all other times of the day Blood specimen (specimen) 09/11/2020 5:17 PM EST 09/11/2020 5:17 PM EST Abiodun Chun MD POINT OF CARE TEST O RDERABLES Performing Organization Address [facility]/ZIP Co de Phone Number [facility] [place] [address] * POCT Glucose (09/11/2020 12:16 PM EST) Glucose, POC 120 65 - 199 mg/dL [facility] Comment: Supplemental ranges: <140 mg/dL before meals <180 mg/dL all other times of the day Blood specimen (specimen) 09/11/2020 12:16 PM EST 09/11/2020 12:16 PM EST Abiodun Chun MD POINT OF CARE TEST O RDERABLES Performing Organization Address [facility]/ZIP Co de Phone Number [facility] [place] [address] * (ABNORMAL) Potassium (09/11/2020 11:47 AM EST) Potassium 3.0(Criti ciera) 3.5 - 5.0 mmol/L [facility] Comment: Called by: miguelina, Read [...] Chun MD CHEMISTRY ORDERABLES Performing Organization Address [facility]/ZIP Co de Phone Number [facility] [place] [address] * (ABNORMAL) Hemoglobin and Hematocrit, blood (09/11/2020 11:47 AM EST) Hemoglobin 8.4(L) 11.7 - 15.5 gm/dL [facility] Hematocrit 26.8(L) 35.7 - 45.8 % [facility] Blood specimen (specimen) 09/11/2020 11:47 AM EST 09/11/2020 12:19 PM EST Narrative Resulting Agency Comment Spec In Lab Amariyls Cerna MD HEMATOLOGY ORDERABLE S Performing Organization Address City/[facility]/ZIP Co de Phone Number [facility] [place] [address] * (ABNORMAL) Ferritin (09/11/2020 11:47 AM EST) [facility] Ferritin 12(L) 30 - 400 ng/mL [facility] Comment: Pediatric reference ranges not verified at [facility], interpret with caution. Reference ranges for females greater than 50 years of age approach values for men, i.e., 30-400 ng/mL. Blood specimen (specimen) 09/11/2020 11:47 AM EST 09/11/2020 12:19 PM EST Narrative Resulting Agency Comment Spec In Lab Abiodun Chun MD CHEMISTRY ORDERABLES Performing Organization Address City/[facility]/ZIP Co de Phone Number [facility] [place] [address] * (ABNORMAL) Iron and TIBC (09/11/2020 11:47 AM EST) [facility] Iron 33 30 - 150 mcg/dL [facility] TIBC 494(H) 250 - 450 mcg/dL [facility] Iron Saturation 7(L) 20 - 50 % [facility] Blood specimen (specimen) 09/11/2020 11:47 AM EST 09/11/2020 12:19 PM EST Narrative Resulting Agency Comment Spec In Lab Abiodun Chun MD CHEMISTRY ORDERABLES Performing Organization Address City/[facility]/ZIP Co de Phone Number [facility] [place] [address] * Scan, Peripheral Blood (09/11/2020 5:36 AM EST) [facility] Plat estimate Normal [facility] RBC Morphology Abnormal [facility] Microcyte gtr than 10 /HPF [facility] Hypochromia Moderate [facility] Polychromasia Present >5/HPF [facility] Ovalocytes 1-5 /HPF [facility] Plat, Giant Less than 1 /HPF [facility] Blood specimen (specimen) 09/11/2020 5:36 AM EST 09/11/2020 6:02 AM EST Narrative Resulting Agency Comment Spec In Lab Carol Reyna MD HEMATOLOGY ORDERABLES [facility] [place] [address] * (ABNORMAL) Hemoglobin A1c (09/11/2020 5:36 AM [...] [id number] Estimated Average Glucose See note mg/dL [facility] [...] into estimated average glucose values. ??Diabetes Care 2008:31(8):6142-2678. Blood specimen (specimen) 09/11/2020 5:36 AM EST 09/11/2020 6:02 AM EST Narrative Resulting Agency Comment Spec In Lab Amarilys Cerna MD CHEMISTRY ORDERABLES Performing Organization Address [facility] Co de Phone Number [facility] [place] [address] * Peripheral Smear Review (09/11/2020 5:36 AM EST) Peripheral Smear Review See Comment [facility] Comment: When completed by the Pathologist, report [id number] will display under Hematopathology Reports. Blood specimen (specimen) 09/11/2020 5:36 AM EST 09/11/2020 6:02 AM EST Narrative Resulting Agency Comment Spec In Lab Amarilys Cerna MD HEMATOLOGY ORDERABLE S Performing Organization Address [facility] Co de Phone Number [facility] [place] [address] * Differential, Automated (09/11/2020 5:36 AM EST) Neutrophil % 63.0 % [facility] Neutrophil Absolute 4.84 1.70 - 6.10 x10(3)/[facility] Lymph % 23.9 % [facility] Lymphocytes Abs 1.8 0.9 - 3.2 x10(3)/[facility] Monocyte % 8.7 % [facility] Monocyte Abs 0.7 0.3 - 0.9 x10(3)/[facility] Eos % 3.0 % [facility] Eosinophils Abs 0.2 0.0 - 0.4 x10(3)/[facility] Basophil % 0.9 % [facility] Baso Absolute 0.1 0.0 - 0.1 x10(3)/[facility] Immature Gran % 0.50 % [facility] Comment: Immature granulocytes(IG's)percentage and absolute count will include metamyelocytes, myelocytes, and promyelocytes. Blood smears from CBCs yielding IG's will be scanned manually for concordance. If this scan disagrees with the automated IG or if promyelocytes are noted, a manual differential will be performed. Immature Gran Absolute 0.04 0.00 - 0.04 x10(3)/[facility] Blood specimen (specimen) 09/11/2020 5:36 AM EST 09/11/2020 6:02 AM EST Narrative Resulting Agency Comment Spec In Lab Carol Reyna MD HEMATOLOGY ORDERABLES Performing Organization Address City/State/[facility] Co de Phone Number [facility] [place] [address] * (ABNORMAL) Hemogram (09/11/2020 5:36 AM EST) White Blood Cell 7.7 4.0 - 9.5 x10(3)/[facility] LABORATORY Red Blood Cell 3.95(L) 4.00 - 5.21 x10(6)/ L [facility] Hemoglobin 8.4(L) 11.7 - 15.5 gm/dL [facility] Hematocrit 27.2(L) 35.7 - 45.8 % [facility] Mean Cell Volume 68.9(L) 82.6 - 94.4 fL [facility] Mean Cell Hemoglobin 21.3(L) 27.1 - 32.0 pg [facility] Mean Cell Hemoglobin Concentration 30.9(L) 31.7 - 35.0 gm/dL [facility] Platelet 290 145 - 357 x10(3)/[facility] LABORATORY RDW Standard Deviation 48.3(H) 37.0 - 46.0 fL [facility] RDW coefficient of variation 19.8(H) 11.5 - 14.1 % [facility] Mean Platelet Volume 9.9 7.6 - 12.9 fL [facility] NRBC% auto 0.5 % [facility] NRBC Absolute 0.040(H) 0.000 - 0.000 x10(3)/mc L [facility] Blood specimen (specimen) 09/11/2020 5:36 AM EST 09/11/2020 6:02 AM EST Narrative Resulting Agency Comment Spec In Lab Carol Reyna MD HEMATOLOGY ORDERABLES Performing Organization Address [facility]/ZIP Co de Phone Number [facility] [place] [address] * Magnesium (09/11/2020 5:36 AM EST) Pathologist [facility] Magnesium 0.82 0.69 - 1.07 mmol/L [facility] Blood specimen (specimen) 09/11/2020 5:36 AM EST 09/11/2020 6:02 AM EST Narrative Resulting Agency Comment Spec In Lab Amarilys Cerna MD CHEMISTRY ORDERABLES Performing Organization Address City/[facility]/ZIP Co de Phone Number [facility] [place] [address] * (ABNORMAL) Hepatic Function Panel (09/11/2020 5:36 AM EST) Protein, Total 6.8 6.1 - 8.0 gm/dL [facility] Albumin 4.4 3.2 - 5.2 gm/dL [facility] Aspartate Aminotransferase 16 0 - 30 unit/L [facility] Alanine Aminotransferase 16 0 - 30 unit/L [facility] Alkaline Phosphatase 123(H) 35 - 105 unit/L [facility] Bilirubin, Total 2.6(H) 0.2 - 1.3 mg/dL [facility] Comment:result rechecked-KS Bilirubin, Direct 0.2 0.0 - 0.3 mg/dL [facility] Blood specimen (specimen) 09/11/2020 5:36 AM EST 09/11/2020 6:02 AM EST Narrative Resulting Agency Comment Spec In Lab Amarilys Cerna MD CHEMISTRY ORDERABLES [facility] [place] [address] * (ABNORMAL) BMP w/fasting Glucose (09/11/2020 5:36 AM EST) Glucose Fasting 195(H) 65 - 99 mg/dL [facility] Comment: ?Fasting* Glucose Interpretive Criteria [...] of Diabetes Mellitus, Position Statement from the [place] [employer]. ??Diabetes Care, Volume 33, Supplement 1, Aug 2009 Blood Urea Nitrogen 13 8 - 18 mg/dL [facility] Creatinine 0.90 0.70 - 1.20 mg/dL [facility] Sodium 140 135 - 145 mmol/L [facility] Potassium 3.2(L) 3.5 - 5.0 mmol/L [facility] Comment: Please note: ??Patients with WBC >100,000 may have falsely elevated Potassium levels. ??For accurate Potassium quantification in these patients send serum separator tube (gold top) for subsequent determinations. ??Contact the Clinical Chemistry Laboratory if there are any questions. Chloride 101 98 - 107 mmol/L [facility] Carbon Dioxide 27 22 - 31 mmol/L [facility] Anion Gap 12 5 - 15 mmol/L [facility] Calcium 9.1 8.5 - 10.5 mg/dL [facility] Est Glomerular Filtration Rate 60 >=60 mL/min/1. 73 m?? [facility] [...] CHEMISTRY ORDERABLES Performing Organization Address [facility] [place] [address] * (ABNORMAL) APTT (09/11/2020 5:36 AM EST) Partial Thromboplastin Time 24(L) 25 - 37 sec [facility] Comment: The PTT is NOT appropriate for heparin monitoring. Use the Anti-Xa level for heparin monitoring (HEP UFH) or LMWH monitoring (HEP LMW). A PTT less than 37 seconds generally indicates adequate hemostasis. Blood specimen (specimen) 09/11/2020 5:36 AM EST 09/11/2020 6:02 AM EST Narrative Resulting Agency Comment Spec In Lab Amarilys Cerna MD HEMATOLOGY ORDERABLE S Performing Organization Address City/[facility]/ZIP Co de Phone Number [facility] [place] [address] * Prothrombin Time (09/11/2020 5:36 AM EST) Prothrombin Time 12.5 9.4 - 12.5 sec [facility] International Normalization Ratio 1.1 [facility] Comment: An INR [...] Lab Amarilys Cerna MD HEMATOLOGY ORDERABLE S [facility] [place] [address] * Smear Review Report (09/11/2020 5:30 AM EST) Smear Review Report [id number] ? Location: [facility]; [facility] [place]; The signing pathologist has (i) examined the relevant preparation(s) for the specimen(s) and (ii) rendered or confirmed the diagnosis(es). . ? Smear Review DIAGNOSIS PERIPHERAL BLOOD, SMEAR: Moderate hypochromic microcytic anemia (see discussion) Electronically signed by: ??Raymundo Peña MD Verified: ??09/11/2020 ?Hematopathologist Performed at: ??-[facility] Dept. of Pathology, [place], [place] DISCUSSION This blood film is requested [...] for severe s/p BAV, ASCVD, and pAF. [facility] 09/11/2020 5:30 AM EST Carol Reyna MD HEMATOLOGY ORDERABLES Performing Organization Address [facility] Co de Phone Number [facility] [place] [address] * (ABNORMAL) POCT Glucose (09/11/2020 5:07 AM EST) Glucose, POC 210(H) 65 - 199 mg/dL [facility] Comment: Supplemental ranges: <140 mg/dL before meals <180 mg/dL all other times of the day Blood specimen (specimen) 09/11/2020 5:07 AM EST 09/11/2020 5:07 AM EST Amarilys Cerna MD POINT OF CARE TEST O RDERABLES Performing Organization Address City/[facility]/ZIP Co de Phone Number [facility] [place] [address] * Transfuse RBC (09/11/2020 4:45 AM EST) Amarilys Cerna MD NURSING TREATMENT OR DERABLES - BLOOD ADMIN * Transfuse RBC (09/11/2020 12:04 AM EST) Eamon Moser MD NURSING TREATMENT ORDERABLES - BLOOD ADMIN * (ABNORMAL) POCT Glucose (09/10/2020 10:45 PM EST) Pathologist [facility] Glucose, POC 225(H) 65 - 199 mg/dL [facility] Comment: Supplemental ranges: <140 mg/dL before meals <180 mg/dL all other times of the day Blood specimen (specimen) 09/10/2020 10:45 PM EST 09/10/2020 10:45 PM EST Amarilys Cerna MD POINT OF CARE TEST O RDERABLES Performing Organization Address City/[facility]/ZIP Co de Phone Number [facility] [place] [address] * Prepare RBC (09/10/2020 10:40 PM EST) [facility] Dispensed? Yes [facility] Blood specimen (specimen) 09/10/2020 10:40 PM EST 09/10/2020 10:46 PM EST Narrative Resulting Agency Comment Spec In Lab Amarilys Cerna MD BLOOD BANK PRODUCT O RDERABLES Performing Organization Address [facility]/ZIP Co de Phone Number [facility] [place] [address] * COVID-19 PCR (09/10/2020 9:44 PM EST) [facility] SARS-CoV-2 RNA (Rapid) Not Detected Not Detected [facility] Comment: This result should be [...] using the Simplexa COVID-19 Direct Assay by [employer] as authorized by the FDA issued Emergency [...] Department of Pathology and Laboratory Medicine at [facility], certified under the Clinical Laboratory Improvement Amendments [...] fact sheets at the following FDA website: https://www.fda.gov/medical-devices/nongdesmfkc-mjesxgj-4577-wxzfj-60-qdhwgencn- use-a uoosqovmpigdu-ablwecy-kzkcyzz/qzmin-dcbqytlgsxr-zhti SARS-CoV-2 Source MACHINE [employer]ING [employer] Swab BO [facility] Nasopharyngeal swab (specimen) 09/10/2020 9:44 PM EST 09/10/2020 10:03 PM EST Comment:Symptoms->Surveillan ce Narrative Resulting Agency Comment Spec In Lab Eamon Moser MD MICROBIOLOGY - GE NERAL ORDERABLES Performing Organization Address [facility]/ZIP Co de Phone Number [facility] [place] [address] * Prepare RBC (09/10/2020 7:40 PM EST) Dispensed? Yes [facility] Blood specimen (specimen) 09/10/2020 7:40 PM EST 09/10/2020 7:40 PM EST Eamon Moser MD BLOOD BANK PRODUC T ORDERABLES Performing Organization Address [facility] Co de Phone Number [place] [phone] * Differential, Automated (09/10/2020 7:25 PM EST) [facility] Neutrophil % 63.6 % [facility] Neutrophil Absolute 4.04 1.70 - 6.10 x10(3)/[facility] Lymph % 24.1 % [facility] Lymphocytes Abs 1.5 0.9 - 3.2 x10(3)/[facility] Monocyte % 8.8 % [facility] Monocyte Abs 0.6 0.3 - 0.9 x10(3)/[facility] Eos % 2.4 % [facility] Eosinophils Abs 0.2 0.0 - 0.4 x10(3)/[facility] Basophil % 0.8 % [facility] Baso Absolute 0.0 0.0 - 0.1 x10(3)/[facility] Immature Gran % 0.30 % [facility] Comment: Immature granulocytes(IG's)percentage and absolute count will include metamyelocytes, myelocytes, and promyelocytes. Blood smears from CBCs yielding IG's will be scanned manually for concordance. If this scan disagrees with the automated IG or if promyelocytes are noted, a manual differential will be performed. Immature Gran Absolute 0.02 0.00 - 0.04 x10(3)/mcL [facility] Blood specimen (specimen) 09/10/2020 7:25 PM EST 09/10/2020 7:36 PM EST Narrative Resulting Agency Comment Spec In Lab Osito Calabrese Jr., MD HEMATOLOGY ORDERA BLES [facility] [place] [address] * (ABNORMAL) Hemogram (09/10/2020 7:25 PM EST) White Blood Cell 6.4 4.0 - 9.5 x10(3)/mc L [facility] Red Blood Cell 2.75(L) 4.00 - 5.21 x10(6)/ L [facility] Hemoglobin 5.2(Criti ciera) 11.7 - 15.5 gm/dL [facility] Comment: This result has been called to ION SALAZAR by JOB GAYTAN on 09 10 2020 at 2030, and has been read back. Hematocrit 18.2(L) 35.7 - 45.8 % [facility] Mean Cell Volume 66.2(L) 82.6 - 94.4 fL [facility] Mean Cell Hemoglobin 18.9(L) 27.1 - 32.0 pg [facility] Mean Cell Hemoglobin Concentration 28.6(L) 31.7 - 35.0 gm/dL [facility] Platelet 264 145 - 357 x10(3)/mc L [facility] RDW Standard Deviation 41.0 37.0 - 46.0 fL [facility] RDW coefficient of variation 17.3(H) 11.5 - 14.1 % [facility] Mean Platelet Volume 10.1 7.6 - 12.9 fL [facility] NRBC% auto 0.5 % [facility] NRBC Absolute 0.030(H) 0.000 - 0.000 x10(3)/mc L [facility] Blood specimen (specimen) 09/10/2020 7:25 PM EST 09/10/2020 7:36 PM EST Narrative Resulting Agency Comment Spec In Lab Ostio Calabrese Jr., MD HEMATOLOGY ORDERA BLES Performing Organization Address [facility] de Phone Number [facility] [place] [address] * (ABNORMAL) APTT (09/10/2020 7:25 PM EST) Partial Thromboplastin Time 24(L) 25 - 37 sec [facility] Comment: The PTT is NOT appropriate for heparin monitoring. Use the Anti-Xa level for heparin monitoring (HEP UFH) or LMWH monitoring (HEP LMW). A PTT less than 37 seconds generally indicates adequate hemostasis. Blood specimen (specimen) 09/10/2020 7:25 PM EST 09/10/2020 7:36 PM EST Narrative Resulting Agency Comment Spec In Lab Eamon Moser MD HEMATOLOGY ORDERA BLES Performing Organization Address [facility] de Phone Number [facility] [place] [address] * (ABNORMAL) Prothrombin Time (09/10/2020 7:25 PM EST) Prothrombin Time 13.8(H) 9.4 - 12.5 sec [facility] International Normalization Ratio 1.2 [facility] Comment: An [...] MD HEMATOLOGY ORDERA BLES Performing Organization Address [facility] Co de Phone Number [facility] [place] [address] * ABORH Recheck Status (09/10/2020 6:15 PM EST) ABORH Type Recheck Completed [facility] Blood specimen (specimen) 09/10/2020 6:15 PM EST 09/10/2020 6:37 PM EST Narrative Resulting Agency Comment Spec In Lab Osito Calabrese Jr., MD BLOOD BANK LAB OR DERABLES Performing Organization Address [facility] Phone Number [facility] [place] [address] * Antibody screen (09/10/2020 6:15 PM EST) Ab Screen Interp Negative [facility] Expires at [id number] on: 09/13/2020 [facility] Blood specimen (specimen) 09/10/2020 6:15 PM EST 09/10/2020 6:37 PM EST Narrative Resulting Agency Comment Spec In Lab Osito Calabrese Jr., MD BLOOD BANK LAB OR DERABLES Performing Organization Address [facility] de Phone Number [facility] [place] [address] * ABO/Rh Typing (09/10/2020 6:15 PM EST) ABORH Type O Pos [facility] Blood specimen (specimen) 09/10/2020 6:15 PM EST 09/10/2020 6:37 PM EST Narrative Resulting Agency Comment Spec In Lab Osito Calabrese Jr., MD BLOOD BANK LAB OR DERABLES Performing Organization Address [facility]/State/ZIP Co de Phone Number [facility] [place] [address] * SCAN DOC: LAB (09/10/2020 12:00 AM [...] Orlando RN) 0807 (Given - Provider: Ashley Santacruz RN) 0820 [...] Kerr RN)1709 (Given - Provider: Fang Kerr, LYLA)2058 (Given - Provider: Juan Ballesteros RN) 0005 (Given - Provider: Juan Ballesteros RN)0331 (Given - Provider: Juan Ballesteros RN)0807 (Given - Provider: Ashley Santacruz, LYLA)1208 (Given - Provider: Ashley Santacruz, LYLA)1649 (Given - Provider: Ashley Santacruz RN)2023 (Given [...] Routine 0837 (Given - Provider: Thanh Orlando, RN)2055 (Given - Provider: Juan Ballesteros RN) 0809 (Given - Provider: Ashley Santacruz, LYLA)2022 (Given - Provider: Skyla Zuniga, LYLA) 0820 [...] Jos Santos RN)1715 (Given - Provider: Fang Kerr, LYLA) 0215 (Not Given - Provider: Juan Ballesteros [...] Juan Ballesteros, LYLA)1121 (Given - Provider: Ashley Santacruz RN) bisacodyL [...] documented as of this encounter Care Teams Blood Bank Specialist Relationship Specialty Start Date End Date Reshma Baig MD [address] [place] [address] PCP - General Family Medicine 11/08/18 06/23/21 documented as of this encounter
--- OUTSIDE RECORDS SUMMARY | 2024-04-28 15:23 | XMS_ITS | Encounter Summary ---
Author Organization [facility] Address [facility] [place] [address] Care Team Providers Care Risk Lead Name Role Phone Reshma Baig MD Primary Care Provider [phone] Reason for Visit * Auth/Cert Specialty Diagnoses / Procedures Referred By Malini carlson Referred To Contact Diagnoses Anemia Procedures EMERGENCY IPI Referral ID Status Reason Start Date Expiration Date Visits Re quested Visits Authorized [id number] 1 1 Encounter Details Date Type Department Care Team (Late st Contact Info) Description 09/12/2020 1:35 PM EST Anesthesia [place] [address] [facility] [place] [address] Anesthesia Record Procedure Summary Procedure Name Responsible Anesthesiologist Anesthesia Start Time Anesthesia Stop Time EGD WITH BIOPSY (WRVU 2.39) (Trunk) Ren Mirza MD 09/12/20 1335 09/12/20 1453 Events Date Time Event Comment 09/12/2020 1335 AN Verify 1335 Start 1335 An Start Data 1337 1348 An Induction 1352 Anesthesia Ready 1358 Procedure Start 1417 Quick Note Hanna started 1445 Procedure Stop 1453 an stop [...] cephalic vein (lateral side of arm), right; [id number] catheter system; 20 gauge, 1 in length; rmt, petroleum production engineer-vas; distraction, tolerated well, appears comfortable; 06/01/21 (LDA [...] Procedure Summary Date: 09/12/20 Room / Location: [facility] / [facility] Anesthesia Start: 1335 Anesthesia Stop: 1453 Procedures: EGD WITH BIOPSY (WRVU 2.49) (N/A Trunk) COLONOSCOPY, DIAGNOSTIC (N/A Trunk) Diagnosis: (upper endo/colo) Surgeon: Mane Avila MD Responsible Provider: Ren Mirza MD Anesthesia Type: general ASA Status: 4 All Anesthesia Providers: Anesthesiologist: Ren Mirza MD [employer]: Alma Rios CRNA Vitals Value Taken Time [...] DRAINAGE 04/28/2020 CT Guided Drain Peritoneal 04/28/2020 [facility] CAT SCAN ??? HYSTERECTOMY, VAGINAL ??? IR BILIARY TUBE CHECK/CHANGE/REMOVE 06/03/2020 IR Biliary Tube Check/Change/Remove 06/03/2020 Jos Collins, DO [facility] RAD ??? IR CHOLECYSTOSTOMY TUBE PLACEMENT 04/22/2020 IR Cholecystostomy Tube Placement 04/22/2020 Jos Collins, DO [facility] RAD ??? IR DRAIN CHECK/CHANGE/REMOVE 05/19/2020 IR Drain Check/Change/Remove 05/19/2020 Jos Collins, DO [facility] RAD ??? PRO LAP, CHOLECYSTECTOMY/GRAPH N/A 07/15/2020 LAPAROSCOPIC CHOLECYSTECTOMY WITH CHOLANGIOGRAM (WRVU 11.47) performed by Hong Rosenthal MD at [facility] MAIN OR ??? PRO UPPER GI ENDOSCOPY, DIAGNOSTIC N/A 05/03/2020 EGD, UPPER GI ENDOSCOPY performed by Brigitte Graf MD at [facility] Social History Tobacco Use ??? Smoking [...] consented to blood products. Plan discussed with [employer]. PAT Clinic Note documented in this encounter [...] mL/hr documented in this encounter Care Teams Risk Lead Relationship Specialty Start Date End Date Reshma Baig MD [address] [place] [address] PCP - General Family Medicine 11/08/18 06/23/21 documented as of this encounter
--- OUTSIDE RECORDS SUMMARY | 2024-04-28 15:24 | XMS_ITS | Encounter Summary ---
Author Organization [facility] Address [facility] [place] [address] Care Team Providers Care Plant Science Professor Name Role Phone Reshma Baig MD Primary Care Provider [phone] Reason for Visit * Auth/Cert Specialty Diagnoses / Procedures Referred By Malini carlson Referred To Contact Diagnoses BILIARY COLIC Procedures PRO LAP, CHOLECYSTECTOMY/GRAPH LAPAROSCOPIC CHOLECYSTECTOMY WITH CHOLANGIOGRAM (WRVU 11.47) Referral ID Status Reason Start Date Expiration Date Visits Re quested Visits Authorized [id number] 1 1 Encounter Details Date Type Department Care Team (Latest Contact Info) Description 07/15/2020 12:57 PM EST - 07/15/2020 7:14 PM EST Hospital Encounter [place] [address] Hong Rosenthal MD [facility] [place] [address] Discharge Disposition: Home Social History Tobacco Use [...] 1. You will have follow-up appointments at [facility] as indicated in the ???Future Appointments and [...] on the next business day. Please call [phone] if you do not hear from us by that time, as your timely follow-up is very important to us. Your care was managed by the Trauma and Acute Care Surgery Team at [facility]. If you have any questions or concerns, please feel free to contact us. Provider Contact Information: General Surgery: [facility] (after business hours): Primary Care Physician: Reshma Baig MD Future Appointments Date Time Provider Department [place] 09/10/2020 11:30 AM ECHO REGULAR [facility] Card [facility] 09/10/2020 1:00 PM Sera Valentin MD [facility] CARD [address] [place] [address] documented in this encounter Medications at Time [...] Brand, 250.02. 1 each 0 12/02/2013 Lancets [facility] Use twice daily or as needed. 200 [...] stable to dc through Same day after Seanor removed 1755 Awakesnd alert Systolic BP 140-150 [...] Rosenthal MD - 07/15/2020 6:04 PM EST [facility] Operative Note Name: Shannan oMody : 1940 Date of surgery: 07/15/2020 Surgeon: Hong Rosenthal MD operations and intelligence assistant: None Preoperative dx: Chronic cholecystitis with [...] and correctanatomic identification. A 5 mm clip chocolate molder was used to place 2 clips each [...] Date/Time Associated Diagnosis Comments RAPID COVID-19 PCR ([facility]/APD/[facility]) Routine 07/15/2020 5:20 PM EST SPECIMEN TO PATHOLOGY Routine 07/15/2020 4:53 PM EST SURGICAL PATHOLOGY REPORT Routine 07/15/2020 4:50 PM EST POCT GLUCOSE Routine 07/15/2020 4:42 PM EST Lap, Cholecystectomy/Gra ph (26229) 07/15/2020 3:05 PM EST BILIARY COLIC POCT GLUCOSE Routine 07/15/2020 2:07 PM EST documented in this encounter Results * COVID-19 PCR (07/15/2020 5:20 PM EST) SARS-CoV-2 RNA (Rapid) Not Detected Not Detected [facility] Comment: This result should be [...] using the Simplexa COVID-19 Direct Assay by [employer] as authorized by the FDA issued Emergency [...] Department of Pathology and Laboratory Medicine at [facility], certified under the Clinical Laboratory [...] Information for Healthcare Professionals (https://www.cdc.gov/coronavirus/2019-ncov/hcp/index.html). SARS-CoV-2 Source PRESS LOADER Swab MA RY [facility] Nasopharyngeal swab (specimen) 07/15/2020 5:20 PM EST 07/15/2020 5:39 PM EST Comment:Symptoms->Surveillan ce Narrative Resulting Agency Comment Spec In Lab Hong Rosenthal MD MICROBIOLOGY - GENER AL ORDERABLES Performing Organization Address [facility] de Phone Number [facility] [place] [address] * Specimen to Pathology (07/15/2020 4:53 PM EST) AP Specimen 07/15/2020 4:53 PM EST 07/15/2020 4:53 PM EST Narrative [facility] - 07/15/2020 4:53 PM EST Specimen requisition ordered. ??Separate Pathology report to follow Hong Rosenthal MD PATHOLOGY/CYTOLOGY O RDERABLES Performing Organization Address [facility] de Phone Number [facility] [place] [address] * Surgical Pathology Report (07/15/2020 4:50 PM EST) Final Diagnosis [id number] ? Location: [facility]; A The signing pathologist has (i) examined the relevant preparation(s) for the specimen(s) and (ii) rendered or confirmed the diagnosis(es). . ?Surgical Pathology DIAGNOSIS Gallbladder: - Chronic cholecystitis and cholelithiasis. Electronically signed by: ??Kareem Causey MD Verified: ??07/21/2020 ?Pathologist Performed at: ??-[facility] Dept. of Pathology, [place], [place] SPECIMEN(S) SUBMITTED A - Gallbladder, excision [...] hepatic margin is inked black Sections/Processi ng: Floating Operator sections in 1 cassettes as follows: ?A1: ??cystic duct margin and vendor representatives mucosa. ??AJ 07/21/2020 2:44 PM EST [facility] GALLBLADDER STRUCTURE / Unknown 07/15/2020 4:50 PM EST 07/15/2020 4:50 PM EST Hong Rosenthal MD PATHOLOGY/CYTOLOGY O ISAIAH Performing Organization Address [facility] Co de Phone Number [facility] [place] [address] * POCT Glucose (07/15/2020 4:42 PM EST) Glucose, POC 163 65 - 199 mg/dL [facility] Comment: Supplemental ranges: <140 mg/dL before meals <180 mg/dL all other times of the day Blood specimen (specimen) 07/15/2020 4:42 PM EST 07/15/2020 4:42 PM EST Hong Rosenthal MD POINT OF CARE TEST O ISAIAH Performing Organization Address [facility]/ZIP Co de Phone Number [facility] [place] [place] [address] * POCT Glucose (07/15/2020 2:07 PM EST) Glucose, POC 147 65 - 199 mg/dL [facility] Comment: Supplemental ranges: <140 mg/dL before meals <180 mg/dL all other times of the day Blood specimen (specimen) 07/15/2020 2:07 PM EST 07/15/2020 2:07 PM EST Hong Rosenthal MD POINT OF CARE TEST O RDERABLES [facility] [place] [address] documented in this encounter Visit Diagnoses Not on filedocumented in this encounter Active and Recently Administered Medications Times are shown in EST. Scheduled Medication Order 07/13/2020 07/14/2020 07/15/2020 ceFAZolin (Ancef) 2 g in dextrose 5% 100 mL infusion 2 g, Intravenous, NIGHT TIME BABYSITTER TO O.R., 1 dose, On Noreen 07/15/20 [...] 1:100,000) documented in this encounter Care Teams Plant Science Professor Relationship Specialty Start Date End Date Reshma Baig MD [address] [place] [id number] PCP - General Family Medicine 11/08/18 06/23/21 documented as of this encounter
--- OUTSIDE RECORDS SUMMARY | 2024-04-28 15:24 | XMS_ITS | Encounter Summary ---
Author Organization [facility] Address [facility] [place] [address] Care Team Providers Care Production Team Manager Name Role Phone Reshma Baig MD Primary Care Provider [phone] Encounter Details Date Type Department Care Team (Late st Contact Info) Description 07/07/2020 Notes Only Cardiology at [address] [address] Sera Valentin MD [facility] [place] [address] Social History Tobacco Use Types Packs/Day Years [...] filedocumented in this encounter Care Teams Production Team Manager Relationship Specialty Start Date End Date Reshma Baig MD [address] [place] [address] PCP - General Family Medicine 11/08/18 06/23/21 documented as of this encounter
--- OUTSIDE RECORDS SUMMARY | 2024-04-28 15:24 | XMS_ITS | Encounter Summary ---
Author Organization [facility] Address [facility] [place] [address] Care Team Providers Care Dust Mixer Name Role Phone Reshma Baig MD Primary Care Provider [phone] Encounter Details Date Type Department Care Team (Late st Contact Info) Description 08/10/2020 Telephone [place] [address] Hong Rosenthal MD [facility] [place] [address] Social History Tobacco Use Types Packs/Day Years [...] status documented in this encounter Care Teams Dust Mixer Relationship Specialty Start Date End Date Reshma Baig MD [address] [place] [address] PCP - General Family Medicine 11/08/18 06/23/21 documented as of this encounter
--- OUTSIDE RECORDS SUMMARY | 2024-04-28 15:24 | XMS_ITS | Encounter Summary ---
Author Organization [facility] Address [facility] [place] [address] Care Team Providers Care Network Technician Name Role Phone Reshma Baig MD Primary Care Provider [phone] Encounter Details Date Type Department Care Team (Late st Contact Info) Description 06/25/2020 Notes Only Cardiology at [address] [place] [address] Lisbeth Cain [place] [facility] [place] [address] Social History Tobacco Use Types Packs/Day Years [...] on filedocumented in this encounter Care Teams Network Technician Relationship Specialty Start Date End Date Reshma Baig MD [address] [place], [place] [id number] PCP - General Family Medicine 11/08/18 06/23/21 documented as of this encounter
--- OUTSIDE RECORDS SUMMARY | 2024-04-28 15:24 | XMS_ITS | Encounter Summary ---
Author Organization [facility] [place] [address] Care Team Providers Care Repair Manager Name Role Phone Reshma Baig MD Primary Care Provider [phone] Reason for Visit * Auth/Cert Specialty Diagnoses / Procedures Referred By Malini carlson Referred To Contact Diagnoses BILIARY COLIC Procedures PRO LAP, CHOLECYSTECTOMY/GRAPH LAPAROSCOPIC CHOLECYSTECTOMY WITH CHOLANGIOGRAM (WRVU 11.47) Referral ID Status Reason Start Date Expiration Date Visits Re quested Visits Authorized [id number] 1 1 Encounter Details Date Type Department Care Team (Late Contact Info) Description 07/15/2020 6:05 PM EST - 07/15/2020 9:19 PM EST [place] [address] Hong Rosenthal MD [facility] [place] [address] LAPAROSCOPIC CHOLECYSTECTOMY WITH CHOLANGIOGRAM (WRVU 11.47) Social [...] 1. You will have follow-up appointments at [facility] as indicated in the ???Future [...] on the next business day. Please call [phone] if you do not hear from us by that time, as your timely follow-up is very important to us. Your care was managed by the Trauma and Acute Care Surgery Team at [facility]. If you have any questions or concerns, please feel free to contact us. Provider Contact Information: General Surgery: [facility] (after business hours): Primary Care Physician: Reshma Baig MD Future Appointments Date Time Provider Department [place] 09/10/2020 11:30 AM ECHO REGULAR [facility] Card [facility] 09/10/2020 1:00 PM Sera Valentin MD [facility] CARD [address] [place] [address] documented in this encounter Medications at Time [...] 400 each 3 10/03/2016 Blood-Glucose Meter [facility] One Touch Ultra Brand, 250.02. 1 each 0 12/02/2013 Lancets [facility] Use twice daily or as needed. 200 [...] stable to dc through Same day after [place] removed 1755 Awakesnd alert Systolic BP 140-150 [...] Rosenthal MD - 07/15/2020 6:04 PM EST [facility] Operative Note Name: Shannan Moody : 1940 Date of surgery: 07/15/2020 Surgeon: Hong Rosenthal MD environmental services assistant: None Preoperative dx: Chronic cholecystitis with [...] and correctanatomic identification. A 5 mm clip advertising dispatch clerks supervisor was used to place 2 clips each [...] Date/Time Associated Diagnosis Comments RAPID COVID-19 PCR ([facility]D/[facility]) Routine 07/15/2020 5:20 PM EST SPECIMEN TO PATHOLOGY Routine 07/15/2020 4:53 PM EST SURGICAL PATHOLOGY REPORT Routine 07/15/2020 4:50 PM EST POCT GLUCOSE Routine 07/15/2020 4:42 PM EST Lap, Cholecystectomy/Gra ph (45525) 07/15/2020 3:05 PM EST BILIARY COLIC POCT GLUCOSE Routine 07/15/2020 2:07 PM EST documented in this encounter Results * COVID-19 PCR (07/15/2020 5:20 PM EST) SARS-CoV-2 RNA (Rapid) Not Detected Not Detected [facility] Comment: This result should [...] using the Simplexa COVID-19 Direct Assay by [employer] as authorized by the FDA issued Emergency [...] Department of Pathology and Laboratory Medicine at [facility], certified under the Clinical Laboratory Improvement Amendments [...] Information for Healthcare Professionals (https://www.cdc.gov/coronavirus/2019-ncov/hcp/index.html). SARS-CoV-2 Source SALES OPERATIONS CONSULTANT Swab MA RY [facility] Nasopharyngeal swab (specimen) 07/15/2020 5:20 PM EST 07/15/2020 5:39 PM EST Comment:Symptoms->Surveillan ce Narrative Resulting Agency Comment Spec In Lab Hong Rosenthal MD MICROBIOLOGY - GENER AL ORDERABLES Performing Organization Address [facility] [place] [address] * Specimen to Pathology (07/15/2020 4:53 PM EST) AP Specimen 07/15/2020 4:53 PM EST 07/15/2020 4:53 PM EST Narrative [facility] - 07/15/2020 4:53 PM EST Specimen requisition ordered. ??Separate Pathology report to follow Hong Rosenthal MD PATHOLOGY/CYTOLOGY O RDERABLES Performing Organization Address [facility] de Phone Number [facility] [place] [address] * Surgical Pathology Report (07/15/2020 4:50 PM EST) Final Diagnosis [id number] ? Location: [facility]; [place]; A The signing pathologist has (i) examined the relevant preparation(s) for the specimen(s) and (ii) rendered or confirmed the diagnosis(es). . ?Surgical Pathology DIAGNOSIS Gallbladder: - Chronic cholecystitis and cholelithiasis. Electronically signed by: ??Kareem Causey MD Verified: ??07/21/2020 ?Pathologist Performed at: ??-[facility] Dept. of Pathology, [place], [place] SPECIMEN(S) SUBMITTED A - Gallbladder, excision [...] hepatic margin is inked black Sections/Processi ng: Marketing Developer sections in 1 cassettes as follows: ?A1: ??cystic duct margin and parts sales representative mucosa. ??AJ 07/21/2020 2:44 PM EST [facility] GALLBLADDER STRUCTURE / Unknown 07/15/2020 4:50 PM EST 07/15/2020 4:50 PM EST Hong Rosenthal MD PATHOLOGY/CYTOLOGY O ISAIAH Performing Organization Address [facility] Co mo Phone Number [facility] [place] [address] * POCT Glucose (07/15/2020 4:42 PM EST) Glucose, POC 163 65 - 199 mg/dL [facility] Comment: Supplemental ranges: <140 mg/dL before meals <180 mg/dL all other times of the day Blood specimen (specimen) 07/15/2020 4:42 PM EST 07/15/2020 4:42 PM EST Hong Rosenthal MD POINT OF CARE TEST O RDERATOAN Performing Organization Address City/[facility]/ZIP Co de Phone Number [facility] [place] [address] * POCT Glucose (07/15/2020 2:07 PM EST) Glucose, POC 147 65 - 199 mg/dL [facility] Comment: Supplemental ranges: <140 mg/dL before meals <180 mg/dL all other times of the day Blood specimen (specimen) 07/15/2020 2:07 PM EST 07/15/2020 2:07 PM EST Hong Rosenthal MD POINT OF CARE TEST O RDERABLES Performing Organization Address [facility] Co de Phone Number [facility] [place] [address] documented in this encounter Visit Diagnoses Not [...] 5% 100 mL infusion 2 g, Intravenous, PRODUCT MARKETING SPECIALIST TO O.R., 1 dose, On Noreen 07/15/20 [...] 1:100,000) documented in this encounter Care Teams Repair Manager Relationship Specialty Start Date End Date Reshma Baig MD [address] [place] [address] PCP - General Family Medicine 11/08/18 06/23/21 documented as of this encounter
--- OUTSIDE RECORDS SUMMARY | 2024-04-28 15:24 | XMS_ITS | Encounter Summary ---
Author Organization [facility] Address [facility] [place] [address] Care Team Providers Care Rfid Technician Name Role Phone Regis Muller MD Primary Care Provider [phone] Reason for Visit * Reason Comments Medication Refill Encounter Details Date Type Department Care Team (Late st Contact Info) Description 08/31/2020 Refill [place] [address] Davon Leung MD [facility] [place] [address] Social History Tobacco Use Types Packs/Day Years [...] documented as of this encounter Care Teams Rfid Technician Relationship Specialty Start Date End Date Regis Muller MD [address] [place], [place] [address] PCP - General Emergency Medicine 06/24/21 documented as of this encounter
--- OUTSIDE RECORDS SUMMARY | 2024-04-28 15:24 | XMS_ITS | Encounter Summary ---
Author Organization [facility] [place] [address] Care Team Providers Care Armhole Presser Name Role Phone Reshma Baig MD Primary Care Provider [phone] Encounter Details Date Type Department Care Team (Late st Contact Info) Description 07/27/2020 Ancillary Procedure [place] [address] Hong Rosenthal MD [facility] [address] Social History Tobacco Use Types Packs/Day Years [...] CT Spine (07/27/2020 12:00 AM EST) Narrative [facility] - 07/30/2020 9:13 AM EST This exam is auto-finalizing. It's purpose is for storage only. Hong Rosenthal MD IM FILM LIBRARY ORD ERABLES [place], [place] documented in this encounter Visit Diagnoses Not on filedocumented in this encounter Care Teams Armhole Presser Relationship Specialty Start Date End Date Reshma Baig MD [address] [place] [address] PCP - General Family Medicine 11/08/18 06/23/21 documented as of this encounter
--- OUTSIDE RECORDS SUMMARY | 2024-04-28 15:24 | XMS_ITS | Encounter Summary ---
Author Organization [facility] [place] [address] Care Team Providers Care Deputy Clerk Name Role Phone Reshma Baig MD Primary Care Provider [phone] Reason for Visit * Auth/Cert Specialty Diagnoses / Procedures Referred By Malini carlson Referred To Contact Diagnoses BILIARY COLIC Procedures PRO LAP, CHOLECYSTECTOMY/GRAPH LAPAROSCOPIC CHOLECYSTECTOMY WITH CHOLANGIOGRAM (WRVU 11.47) Referral ID Status Reason Start Date Expiration Date Visits Re quested Visits Authorized [id number] 1 1 Encounter Details Date Type Department Care Team (Late st Contact Info) Description 07/15/2020 3:06 PM EST Anesthesia [place] [address] Haider Couch DO [facility] [place] [address] Dong Aburto MD [facility] [place] [address] Anesthesia Record Procedure Summary Procedure Name Responsible [...] 0932; Righ t; upper; abdomen; pigtail (10 [place] Anna Tube); Dr. Collins; Sterile prep and drape, Sterile technique; Lidocaine 1%; Other; Exchanged with 10 fr tube; 07/15/20; 17104/22/20 0932 by Bobbi Fernandez RN 07/15/20 1711 by Fang Rodgers RN Drain/Device Site 04/28/20; 0956; Righ t; upper; abdomen; collapsible closed device (10 [place] pigtail); Dr. Collins; 07/15/20; 1711 04/28/20 0956 [...] 1521 by Rosa Hampton 07/15/20 1800 by Coburn, Peri E, RN ETT Mask Ventilation: Mayur estrada (1); ETT Type: Cuffed, Oral; ETT Size: [...] 1550; metacarpal vein (top of hand), right; [id number] catheter system; 18 gauge; Sumaya; tolerated well; [...] Procedure Summary Date: 07/15/20 Room / Location: [facility] MAIN OR Anesthesia Start: 1506 Anesthesia Stop: 1726 Procedure: LAPAROSCOPIC CHOLECYSTECTOMY WITH CHOLANGIOGRAM (WRVU ) (N/A Abdomen) Diagnosis: (BILIARY COLIC) Surgeon: Hong Rosenthal MD Responsible Provider: Haider Couch DO Anesthesia Type: general ASA Status: 3 All Anesthesia Providers: Anesthesiologist: Haider Couch DO TETRYL DISSOLVER OPERATOR: Haleigh Green CRNA Student Nurse Director Mobile: Rosa Hampton Vitals Value Taken Time BP 138/51 07/15/20 1745 Temp Pulse 56 07/15/20 1756 Resp 17 07/15/20 1756 SpO2 95 % 07/15/20 1800 Pain Level 0 07/15/20 1745 Vitals shown include unvalidated device data. Patient Location: PACU/[facility] Level of Consciousness: Conscious but Sleepy Pain [...] stenosis Added automatically from request for surgery [id number] ??? Aortic stenosis - moderate 04/20/20 TTE [...] DRAINAGE 04/28/2020 CT Guided Drain Peritoneal 04/28/2020 [facility] RAD CAT SCAN ??? HYSTERECTOMY, VAGINAL ??? IR BILIARY TUBE CHECK/CHANGE/REMOVE 06/03/2020 IR Biliary Tube Check/Change/Remove 06/03/2020 Jos Collins, DO [facility] INTERVENTIONL RAD ??? IR CHOLECYSTOSTOMY TUBE PLACEMENT 04/22/2020 IR Cholecystostomy Tube Placement 04/22/2020 Jos Collins, DO [facility] INTERVENTIONL RAD ??? IR DRAIN CHECK/CHANGE/REMOVE 05/19/2020 IR Drain Check/Change/Remove 05/19/2020 Jos Collins, DO [facility] INTERVENTIONL RAD ??? PRO UPPER GI ENDOSCOPY, DIAGNOSTIC N/A 05/03/2020 EGD, UPPER GI ENDOSCOPY performed by Brigitte Graf MD at [facility] ENDOSCOPY Social History Tobacco Use ??? [...] risks discussed with patient. Plan discussed with TETRYL DISSOLVER OPERATOR. PAT Clinic Note documented in this encounter [...] 07/15/2020 5:05 PM EST 8 mg PHENYLephrine (HCOCO-SYNEPHRINE) 20 mg in sodium chloride 250 mL [...] mg documented in this encounter Care Teams Deputy Clerk Relationship Specialty Start Date End Date Reshma Baig MD [address] [place] [address] PCP - General Family Medicine 11/08/18 06/23/21 documented as of this encounter
--- OUTSIDE RECORDS SUMMARY | 2024-04-28 15:24 | XMS_ITS | Encounter Summary ---
Author Organization [facility] Address [place] [address] Care Team Providers Care Computer Engineer Name Role Phone Reshma Baig MD Primary Care Provider [phone] Reason for Visit * Auth/Cert Specialty Diagnoses / Procedures Referred By Malini carlson Referred To Contact Diagnoses Anemia Procedures EMERGENCY IPI Referral ID Status Reason Start Date Expiration Date Visits Re quested Visits Authorized [id number] 1 1 Encounter Details Date Type Department Care Team (Latest Contact Info) Description 09/10/2020 1:00 PM EST Office Visit Cardiology at [address] [phone] Jordyn Valentin MD [facility] CARDIOLOGY [place] [address] Aortic valve stenosis, etiology of cardiac valve [...] Jordyn Valentin MD MPH Structural Interventional Cardiology [place] [phone] , #5 Overall clinical summary: This is [...] DRAINAGE 04/28/2020 CT Guided Drain Peritoneal 04/28/2020 [facility] RAD CAT SCAN ??? HYSTERECTOMY, VAGINAL ??? IR BILIARY TUBE CHECK/CHANGE/REMOVE 06/03/2020 IR Biliary Tube Check/Change/Remove 06/03/2020 Jos Collins, DO [facility] INTERVENTIONL RAD ??? IR CHOLECYSTOSTOMY TUBE PLACEMENT 04/22/2020 IR Cholecystostomy Tube Placement 04/22/2020 Jos Collins, DO [facility] INTERVENTIONL RAD ??? IR DRAIN CHECK/CHANGE/REMOVE 05/19/2020 IR Drain Check/Change/Remove 05/19/2020 Jos Collins, DO [facility] INTERVENTIONL RAD ??? PRO LAP, CHOLECYSTECTOMY/GRAPH N/A 07/15/2020 LAPAROSCOPIC CHOLECYSTECTOMY WITH CHOLANGIOGRAM (WRVU 11.47) performed by Hong Rosenthal MD at [facility] MAIN OR ??? PRO UPPER GI ENDOSCOPY, DIAGNOSTIC N/A 05/03/2020 EGD, UPPER GI ENDOSCOPY performed by Brigitte Graf MD at [facility] ENDOSCOPY SOCIAL HISTORY: Reviewed and updated as [...] questions, please feel free to contact me: [phone] #3 for interventional nurse or #5 for my automotive parts counter assistant or [email or web address]. Shannan Moody 09/10/2020 Referring Providers: MD Ariadna Mcdonald James C, MD [facility] [place] [address] JORDYN VALENTIN MD 09/10/2020 TESTING: Recent Results (from the past 72 hour(s)) Echocardiogram Transthoracic([facility] or [facility]) Result Value Ref Range EF 65 EKG 12 Lead Result Value Ref Range Ventricular rate 70 BPM Atrial Rate 70 BPM P-R Interval 118 ms QRS Duration 130 ms Q-T Interval 456 ms QTC Calculated (Bezet) 492 ms Calculated P [place] 49 degrees Calculated R [place] 22 degrees Calculated T [place] -33 degrees INTERPRETATION Normal sinus rhythm Right [...] PM EST Surgery follow-up BASIC METABOLIC PANEL Routine 09/10/2020 2:42 PM EST EKG 12-LEAD Routine 09/10/2020 1:18 PM EST Aortic valve stenosis, etiology of cardiac valve disease unspecified 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 Paroxysmal atrial fibrillation Hyperlipidemia, unspecified hyperlipidemia type Hypertension, unspecified type Severe aortic stenosis documented in this encounter Results * (ABNORMAL) Basic Metabolic Panel (non-fasting) (09/10/2020 2:42 PM EST) Glucose 261(H) 65 - 199 mg/dL [facility] Comment:Diabetes: >=200 mg/d L plus symptoms Blood Urea Nitrogen 17 8 - 18 mg/dL [facility] Creatinine 1.02 0.70 - 1.20 mg/dL [facility] Carbon Dioxide 25 22 - 31 mmol/L [facility] Anion Gap 15 5 - 15 mmol/L [facility] Calcium 8.7 8.5 - 10.5 mg/dL [facility] Est Glomerular Filtration Rate 52(L) >=60 mL/min/1. 73 m?? [facility] [...] MD CHEMISTRY ORDERAB LES Performing Organization Address [facility]/ZIP Co de Phone Number [facility] [place] [address] * (ABNORMAL) Hepatic Function Panel (09/10/2020 2:42 PM EST) Protein, Total 6.5 6.1 - 8.0 gm/dL [facility] Albumin 4.1 3.2 - 5.2 gm/dL [facility] Aspartate Aminotransferase 14 0 - 30 unit/L [facility] Alanine Aminotransferase 18 0 - 30 unit/L [facility] Alkaline Phosphatase 122(H) 35 - 105 unit/L [facility] Bilirubin, Total 1.1 0.2 - 1.3 mg/dL [facility] Bilirubin, Direct 0.3 0.0 - 0.3 mg/dL [facility] Blood specimen (specimen) 09/10/2020 2:42 PM EST 09/10/2020 3:16 PM EST Narrative Resulting Agency Comment Spec In Lab Damaris Florentino APRN CHEMISTRY ORDERABL ES Performing Organization Address [facility] Co de Phone Number [facility] [place] [address] * EKG 12 Lead (09/10/2020 1:18 PM EST) Ventricular rate 70 BPM MUSE SYSTEM Atrial Rate 70 BPM MUSE SYSTEM P-R Interval 118 ms MUSE SYSTEM QRS Duration 130 ms MUSE SYSTEM Q-T Interval 456 ms MUSE SYSTEM QTC Calculated (Bezet) 492 ms MUSE SYSTEM Calculated P [place] 49 degrees MUSE SYSTEM Calculated R [place] 22 degrees MUSE SYSTEM Calculated T [place] -33 degrees MUSE SYSTEM INTERPRETATION Normal sinus [...] surgery documented in this encounter Care Teams Computer Engineer Relationship Specialty Start Date End Date Reshma Baig MD [address] [place] [id number] PCP - General Family Medicine 11/08/18 06/23/21 documented as of this encounter
--- OUTSIDE RECORDS SUMMARY | 2024-04-28 15:24 | XMS_ITS | Encounter Summary ---
Author Organization [facility] [place] [address] Care Team Providers Care Esthetician/Spa Coordinator Name Role Phone Reshma Baig MD Primary Care Provider [phone] Encounter Details Date Type Department Care Team (Late st Contact Info) Description 09/10/2020 Telephone Cardiology at [address] [phone] Ryan Marques, RN Social History Tobacco Use [...] directing patient to return immediately to [place] [facility] [place] for evaluation and treatment. Lab values not yet available in [facility] at the time of this call [...] - 0.000 x10(3)/mcL 0.030 (H) Dilan Marques, hot dipper Team Nurse [facility] [place] documented in this encounter Plan of Treatment Not on file documented as of this encounter Visit Diagnoses Not on filedocumented in this encounter Care Teams Esthetician/Spa Coordinator Relationship Specialty Start Date End Date Reshma Baig MD [address] [place] [address] PCP - General Family Medicine 11/08/18 06/23/21 documented as of this encounter
--- OUTSIDE RECORDS SUMMARY | 2024-04-28 15:24 | XMS_ITS | Encounter Summary ---
Author Organization [facility] [place] [address] Care Team Providers Care Conveyor Tender [employer]ing [employer] Name Role Phone Reshma Baig MD Primary Care Provider [phone] Reason for Referral * Diagnostic Test (Routine) - Closed Specialty Diagnoses / Procedures Referred By Malini carlson Referred To Contact Cardiology Diagnoses Aortic valve stenosis, etiology of cardiac valve disease unspecified Procedures Echocardiogram Transthoracic([facility]) Sera Valentin MD [facility] [place] [address] [facility] [place] [address] Referral ID Status Reason Start Date Expiration Date V isits Requested Visits Authorized [id number] Closed Specialty Service Requested 2020 03/06/2021 1 1 Reason for Visit * Auth/Cert Specialty Diagnoses / Procedures Referred By Malini carlson Referred To Contact Diagnoses Anemia Procedures EMERGENCY IPI Referral ID Status Reason Start Date Expiration Date Visits Re quested Visits Authorized [id number] 1 1 Encounter Details Date Type Department Care Team (Latest Contact Info) Description 09/10/2020 10:50 AM EST - 09/10/2020 4:41 PM EST Hospital Encounter Non[place] [address] Sera Valentin MD [facility] [place] [address] Aortic valve stenosis, etiology of cardiac valve [...] mL 2 12/10/2017 blood sugar diagnostic strips (BoB Partners[employer]CH ULTRA TEST) Strip 1 each by Other [...] COMPLETE (09/10/2020 12:20 PM EST) EF 65 HEARTBettery SYSTEM Anatomical Region Laterality Modality Other 09/10/2020 Narrative 09/10/2020 12:48 PM EST Procedure: ?Transthoracic Echocardiogram Patient: ?WILLIAM Francis ? (Age): 1940(80y) Med Rec#: ? [id number] ?Sex: ?F ? Site Loc: ? DH ?Ht / Wt: ??157(cm)/80(kg) Pt. Loc: ?Echo Lab ?BSA: ?1.81 Study Date: ?? 09/10/2020 ?Pt. Type: Outpatient Tape: ? Referring: ASHLEYJ Reading: Darwin Connors ([id number]) Directional Bore Operator: Deb Curtis Diagnosis: *Nonrheumatic aortic (valve) stenosis [...] Vmax ?2.04 ? m/sec ? MV deceleration [id number] ?msec ? MV A-wave Vmax ?1.15 ? [...] 09/10/2020 12:48:11 Images reviewed and interpretation verified [facility] Cardiac Ultrasound Laboratory Procedure Note Darwin Connors MD - 09/10/2020 Procedure: Transthoracic Echocardiogram Patient: WILLIAM Francis DOB(Age): 1940(80y) Med Rec#: [id number] Sex: F Site Loc: [facility] Ht / Wt: 157(cm)/80(kg) Pt. Loc: Echo Lab BSA: 1.81 Study Date: 09/10/2020 Pt. Type: Outpatient Tape: Referring: [facility] Reading: Darwin Connors ([id number]) Directional Bore Operator: Deb Curtis Diagnosis: *Nonrheumatic aortic (valve) stenosis [...] MV E-wave Vmax 2.04 m/sec MV deceleration [id number] msec MV A-wave Vmax 1.15 m/sec MV [...] 09/10/2020 12:48:11 Images reviewed and interpretation verified [facility] Cardiac Ultrasound Laboratory Srea Valentin MD ECHO ORDERABLES documented in this encounter Visit Diagnoses Diagnosis Aortic valve stenosis, etiology of cardiac valve disease unspecified documented in this encounter Care Teams Conveyor Tender [employer] Mixing Plant Relationship Specialty Start Date End Date Reshma Baig MD [address] [place] [id number] PCP - General Family Medicine 11/08/18 06/23/21 documented as of this encounter
--- OUTSIDE RECORDS SUMMARY | 2024-04-28 15:24 | XMS_ITS | Encounter Summary ---
Author Organization [place] [address] Care Team Providers Care Tele Tech Name Role Phone Reshma Baig MD Primary Care Provider [phone] Encounter Details Date Type Department Care Team (Late st Contact Info) Description 09/10/2020 Telephone Cardiology at [address] [phone] Ryan Marques, RN Social History Tobacco Use [...] on filedocumented in this encounter Care Teams Tele Tech Relationship Specialty Start Date End Date Reshma Baig MD [address] [place] [address] PCP - General Family Medicine 11/08/18 06/23/21 documented as of this encounter
--- OUTSIDE RECORDS SUMMARY | 2024-04-28 15:24 | XMS_ITS | Encounter Summary ---
Author Organization [facility] Address [facility] [place] [address] Care Team Providers Care Regional Engineer Name Role Phone Reshma Baig MD Primary Care Provider [phone] Reason for Visit * Reason Comments Follow-up * Auth/Cert Specialty Diagnoses / Procedures Referred By Malini carlson Referred To Contact Diagnoses Anemia Procedures EMERGENCY IPI Referral ID Status Reason Start Date Expiration Date Visits Re quested Visits Authorized [id number] 1 1 Encounter Details Date Type Department Care Team (Late st Contact Info) Description 09/10/2020 10:30 AM EST Office Visit [place] [address] Damaris Florentino, SOCIAL SECURITY BENEFITS INTERVIEWER [facility] [place] [address] Surgery follow-up; Aortic valve stenosis, etiology of [...] encounter Progress Notes * Damaris Florentino Ivan, SOCIAL SECURITY BENEFITS INTERVIEWER - 09/10/2020 10:30 AM EST Shannan Reedlerc [...] Peripheral Blood (09/10/2020 2:42 PM EST) Plat estimate Normal [facility] RBC Morphology Abnormal [facility] Microcyte gtr than 10 /HPF [facility] Hypochromia Moderate [facility] Polychromasia Present >5/HPF [facility] Ovalocytes 1-5 /HPF [facility] Pappenheimers Present >1/HPF [facility] Blood specimen (specimen) 09/10/2020 2:42 PM EST 09/10/2020 3:16 PM EST Narrative Resulting Agency Comment Spec In Lab Esau Valentin MD HEMATOLOGY ORDERA BLES Performing Organization Address City/[facility]/ZIP Co de Phone Number [facility] [place] [address] * Differential, Automated (09/10/2020 2:42 PM EST) Neutrophil % 68.7 % [facility] Neutrophil Absolute 5.38 1.70 - 6.10 x10(3)/[facility] Lymph % 19.9 % [facility] Lymphocytes Abs 1.6 0.9 - 3.2 x10(3)/[facility] Monocyte % 8.4 % [facility] Monocyte Abs 0.7 0.3 - 0.9 x10(3)/[facility] Eos % 1.9 % [facility] Eosinophils Abs 0.2 0.0 - 0.4 x10(3)/[facility] Basophil % 0.8 % [facility] Baso Absolute 0.1 0.0 - 0.1 x10(3)/[facility] Immature Gran % 0.30 % [facility] Comment: Immature granulocytes(IG's)percentage and absolute count will include metamyelocytes, myelocytes, and promyelocytes. Blood smears from CBCs yielding IG's will be scanned manually for concordance. If this scan disagrees with the automated IG or if promyelocytes are noted, a manual differential will be performed. Immature Gran Absolute 0.02 0.00 - 0.04 x10(3)/[facility] Blood specimen (specimen) 09/10/2020 2:42 PM EST 09/10/2020 3:16 PM EST Narrative Resulting Agency Comment Spec In Lab Esau Valentin MD HEMATOLOGY ORDERA BLES [facility] [place] [address] * (ABNORMAL) Hemogram (09/10/2020 2:42 PM EST) White Blood Cell 7.8 4.0 - 9.5 x10(3)/ L [facility] Red Blood Cell 2.90(L) 4.00 - 5.21 x10(6)/[facility] Hemoglobin 5.4(Criti ciera) 11.7 - 15.5 gm/dL [facility] Comment: This result has been called to ESAU VALENTIN by Debra Young on 09 10 2020 at 1534, and has been read back. Hematocrit 19.2(L) 35.7 - 45.8 % [facility] Mean Cell Volume 66.2(L) 82.6 - 94.4 fL [facility] Mean Cell Hemoglobin 18.6(L) 27.1 - 32.0 pg [facility] Mean Cell Hemoglobin Concentration 28.1(L) 31.7 - 35.0 gm/dL [facility] Platelet 313 145 - 357 x10(3)/[facility] RDW Standard Deviation 41.5 37.0 - 46.0 [facility] RDW coefficient of variation 17.3(H) 11.5 - 14.1 % [facility] Mean Platelet Volume 10.5 7.6 - 12.9 [facility] NRBC% auto 0.4 % [facility] NRBC Absolute 0.030(H) 0.000 - 0.000 x10(3)/[facility] Blood specimen (specimen) 09/10/2020 2:42 PM EST 09/10/2020 3:16 PM EST Narrative Resulting Agency Comment Spec In Lab Esau Valentin MD HEMATOLOGY ORDERA BLES [facility] [place] [address] * (ABNORMAL) Hepatic Function Panel (09/10/2020 2:42 PM EST) Protein, Total 6.5 6.1 - 8.0 gm/dL [facility] Albumin 4.1 3.2 - 5.2 gm/dL [facility] Aspartate Aminotransferase 14 0 - 30 unit/L [facility] Alanine Aminotransferase 18 0 - 30 unit/L [facility] Alkaline Phosphatase 122(H) 35 - 105 unit/L [facility] Bilirubin, Total 1.1 0.2 - 1.3 mg/dL [facility] Bilirubin, Direct 0.3 0.0 - 0.3 mg/dL [facility] Blood specimen (specimen) 09/10/2020 2:42 PM EST 09/10/2020 3:16 PM EST Narrative Resulting Agency Comment Spec In Lab Damaris Florentino SOCIAL SECURITY BENEFITS INTERVIEWER CHEMISTRY ORDERABL ES [facility] [place] [address] documented in this encounter Visit Diagnoses Diagnosis Surgery follow-up Follow-up examination, following unspecified surgery Aortic valve stenosis, etiology of cardiac valve disease unspecified Paroxysmal atrial fibrillation Atrial fibrillation documented in this encounter Care Teams Regional Engineer Relationship Specialty Start Date End Date Reshma Baig MD [address] [place] [address] PCP - General Family Medicine 11/08/18 06/23/21 documented as of this encounter
--- OUTSIDE RECORDS SUMMARY | 2024-04-28 15:24 | XMS_ITS | Encounter Summary ---
Author Organization [facility] [place] [address] Care Team Providers Care Teamcenter Consultant Name Role Phone Reshma Baig MD Primary Care Provider [phone] Encounter Details Date Type Department Care Team (Late st Contact Info) Description 07/12/2020 Telephone [place] [address] Sandy Carrillo RN Social History Tobacco Use [...] on filedocumented in this encounter Care Teams Teamcenter Consultant Relationship Specialty Start Date End Date Reshma Baig MD [address] [place] [address] PCP - General Family Medicine 11/08/18 06/23/21 documented as of this encounter
--- OUTSIDE RECORDS SUMMARY | 2024-04-28 15:24 | XMS_ITS | Encounter Summary ---
Author Organization [facility]ly [facility] Address [facility] [place] [address] Care Team Providers Care Capital Equipment Specialist Name Role Phone Reshma Baig MD Primary Care Provider [phone] Reason for Visit * Reason Comments Abnormal Labs hemoglobin 5.4 * Auth/Cert Specialty Diagnoses / Procedures Referred By Malini carlson Referred To Contact Diagnoses Anemia Procedures EMERGENCY IPI Referral ID Status Reason Start Date Expiration Date Visits Re quested Visits Authorized [id number] 1 1 Encounter Details Date Type Department Care Team (Late st Contact Info) Description 09/12/2020 12:30 PM EST - 09/12/2020 1:45 PM EST [place] [address] Mane Avila MD [facility] [place] [address] EGD WITH BIOPSY (WRVU 2.39) Social History [...] Patient Age: 80 y.o. Birthdate: 1940 Language: Cymraes Race: White Ethnicity: Not nor Admit Date: 09/10/2020 Discharge Date: 09/16/20 Attending Physician: Pan Hurtado MD Follow-up Recommendations for Providers: ??? Please continue routine management of cardiovascular risk factors including blood pressure, lipids, glucose, etc. ??? Please note any medication changes. ??? Our office will schedule a follow-up appointment with your PCP, Reshma Baig MD, or Primary Plate Mounter, in ~ 7-10 days. ??? Our office will schedule a follow-up appointment with your Marine Plumber, Dr. Esau Rahman in 4 weeks with a chest x-ray, EKG, Echo, CBC, and CMP. ?? Hmre-Mngvtp-hf interval: After initial 30 day follow-up appointment , all TAVR patients will follow-up again in one year with an echo. Inpatient Provider Contact Information: [facility] Section of Cardiac Surgery [facility] [address] FAX [phone] Discharge Diagnoses (Hospital Problems) Primary Diagnoses: Aortic [...] DRAINAGE 04/28/2020 CT Guided Drain Peritoneal 04/28/2020 [facility] RAD CAT SCAN ??? HYSTERECTOMY, VAGINAL ??? IR BILIARY TUBE CHECK/CHANGE/REMOVE 06/03/2020 IR Biliary Tube Check/Change/Remove 06/03/2020 Jos Collins, DO [facility] INTERVENTIONL RAD ??? IR CHOLECYSTOSTOMY TUBE PLACEMENT 04/22/2020 IR Cholecystostomy Tube Placement 04/22/2020 Jos Collins, DO [facility] INTERVENTIONL RAD ??? IR DRAIN CHECK/CHANGE/REMOVE 05/19/2020 IR Drain Check/Change/Remove 05/19/2020 Jos Collins, DO [facility] INTERVENTIONL RAD ??? PRO COLONOSCOPY, DIAGNOSTIC N/A 09/12/2020 COLONOSCOPY, DIAGNOSTIC performed by Mane Avila MD at [facility] ENDOSCOPY ??? PRO LAP, CHOLECYSTECTOMY/GRAPH N/A 07/15/2020 LAPAROSCOPIC CHOLECYSTECTOMY WITH CHOLANGIOGRAM (WRVU 11.47) performed by Hong Rosenthal MD at [facility] MAIN OR ??? PRO UPPER GI ENDOSCOPY, BIOPSY N/A 09/12/2020 EGD WITH BIOPSY (WRVU 2.49) performed by Mane Avila MD at [facility] ENDOSCOPY ??? PRO UPPER GI ENDOSCOPY, DIAGNOSTIC N/A 05/03/2020 EGD, UPPER GI ENDOSCOPY performed by Brigitte Graf MD at [facility] ENDOSCOPY Prior To Admission Medications Medications Prior [...] Hospital Course: Shannan Chaudhary was admitted to [facility] on 09/10/2020 via admission from clinic [...] TF TAVR She was brought to the cardiac cath lab radiology technologist 09/16/[address] Pan Hurtado and Esau [...] Quantity: 300 each Refills: 3 Blood-Glucose Meter [facility] One Touch Ultra Brand, [...] or drainage from your procedural sites. Your Marine Plumber, Dr. Esau Rahman and/or the Manager Discovery may be reached at . You may also contact KAMI Mayberry RN, TAVR Batch Freezer Operator at [phone] with any questions or issues. Antibiotic prophylaxis: [...] Please refer to the card with the [place] Heart [employer] Guidelines for more information. You have been provided with a copy of this card. Please refer to the [place] Heart [employer] Guidelines for more information. Good [...] friends, go to a movie, go to [employer], etc. Heavy activities: No hunting, skiing, jogging, [...] should resume a low fat, low cholesterol, [place] Heart [employer] Diet. Driving: No driving for [...] pain, warmth or drainage. Please call your outside residential sales professional's office if you haveany discharge or drainage from your procedural sites. If there is a lot of swelling, apply yakelin wraps during the day and remove at bedtime. Elevate your legs when you are sitting. Home oxygen therapy: N/A Follow up appointments: ??? Our office will schedule a follow-up appointment with your PCP, Reshma Baig MD, or Primary Plate Mounter, in ~ 7-10 days. ??? Our office will schedule a follow-up appointment with your Marine Plumber, Dr. Esau Rahman, in 4 weeks with a chest x-ray, EKG, Echo, and labs prior to your appointment. ?? Dkzm-Mddpvd-jq interval: After initial 30 day follow-up appointment , all TAVR patients will follow-up again in one year with an echo. Cardiac Rehabilitation: Shannan Tito Chaudhary was seen today regarding participation in [...] 10/18/2020 12:30 PM LAB, THREE L Lab [address] [place] [address] Arrive at: Power Lineworker Area [phone] 10/18/2020 1:00 PM ECHO REGULAR Non-Invasive Cardiology Lab [facility] Arrive at: Power Lineworker Area [phone] 10/18/2020 2:30 PM NURSE, CARDIOLOGY Cardiology at [facility] Arrive at: Power Lineworker Area [phone] 10/18/2020 3:00 PM Maria L Green PA Cardiology at [facility] Arrive at: Power Lineworker Area [phone] Future Orders Complete By Expires CBC (with Diff) [[id number] Custom] 10/19/2020 (Approximate) 03/18/2021 Process Instructions: INCLUDES: WBC, RBC, Hgb, Hct, Platelets, RBC Indices and Differential Scheduling Instructions: Comments: Questions: Comprehensive metabolic panel (non-fasting) [LAB17 Custom] 10/19/2020 (Approximate) 03/18/2021 Process Instructions: INCLUDES: Calcium, T Protein, Albumin, AST, ALT, Alk Phos, T Bili, BUN, Creat, GFR, Glucose, Lytes. Scheduling Instructions: Comments: Questions: Echocardiogram Transthoracic([facility] or [facility]) [72423 CPT(R)] 10/19/2020 (Approximate) 03/18/2021 Process Instructions: Scheduling Instructions: Questions: Is a Bubble Study requested?: Does the patient have Congenital Heart Disease?: GA rationale: Does patient require sedation?: Where should this exam be performed?: [facility] EKG 12 Lead [05959 CPT(R)] 10/19/2020 (Approximate) 03/18/2021 Process Instructions: Scheduling Instructions: Questions: Which location will this be performed?: [place] Is a rhythm strip needed?: No XR Chest PA & Lateral (Generic) [63545 89216 Custom] 10/19/2020 (Approximate) 03/18/2021 Process Instructions: Scheduling Instructions: Questions: Where will study be performed?: [facility] Radiology Portable exam?: Reason for exam and clinical history: s/p TAVR Clinical information / sanchez questions: Stat read required?: Date of injury if applicable: Requested Time: Referral to Cardiac Rehab [CVS314 Custom] As directed Process Instructions: If no progress note charted, please enter Clinical details in comments. Scheduling Instructions: Questions: My question or request is: TAVR- CR at [facility] Referral to Home Health - at DISCHARGE [TDC0617 CPT(R)] As directed Process Instructions: Scheduling Instructions: Comments: DOCUMENTATION FOR VNA SERVICES (INCLUDING THOSE PATIENTS WITH MEDICARE COVERAGE REQUIRING HOME VNA SERVICES AND/OR HOSPICE SERVICES) PATIENT'S LOCATION: Shannan Chaudhary [address] [place] [phone] (home) Telephone Information: Sorority Mother's Name: patient In discussion with the attending physician, it is certified that this patient is under their care and that they, or a Nurse Practitioner, or Physician Curb Setter who is working directly with them, hada [...] for services as follows: HOME HEALTH AGENCY: [facility] PHONE: [phone] FAX: [phone] RN orders: Cardiopulmonary assessment, incisional assessment, assess [...] issues please call the Cardiac SurgeryOffice at [phone] FOR MEDICARE ONLY: (please delete this section [...] noted. Questions: Agency name and contact information: [facility] Patient location post discharge: Home What services are requested: Registered Nurse Physical Therapy Start date: Responsible MD post discharge contact info: PCP Walker standard [EQ135 Custom] As directed Process Instructions: Scheduling Instructions: Comments: Shannan Francis [facility] [address] [facility] [address] (home) Telephone Information: Diagnosis:severe anemia, s/p TAVR with Unsteady gait Significant weakness, ataxia or gait abnormality Patient's: Hgt: 5'2 Wgt: 174 lbs VENDOR: [facility] Ordering: Front wheel walker Deliver to 's hospital room #: 445 Questions: Vendor Name/Contact information: [facility] Discharge References/Attachments EGD (Upper Endoscopy): Post-op (Cymraes) Colonoscopy: Post-op (Cymraes) Arrangements for VNA/home care: As above. Signed: Prashanth Jacob PA-C [facility] Section of Cardiac Surgery Date: 09/18/2020 CC: MD Safia Mcdonald Linda, MD [address] [place] [phone] documented in this encounter Discharge Instructions * [...] or drainage from your procedural sites. Your Marine Plumber, Dr. Esau Rahman and/or the Manager Discovery may be reached at . ?? You may also contact KAMI Mayberry RN, TAVR Batch Freezer Operator at [phone] with any questions or issues. ?? Antibiotic [...] Please refer to the card with the [place] Heart [employer] Guidelines for more information. You have been provided with a copy of this card. Please refer to the [place] Heart Association Guidelines for more information. Good [...] friends, go to a movie, go to [employer], etc. ?? Heavy activities: No hunting, skiing, [...] should resume a low fat, low cholesterol, [place] Heart Association Diet. ?? Driving: No driving [...] pain, warmth or drainage. Please call your outside residential sales professional's office if you haveany discharge or drainage from your procedural sites. If there is a lot of swelling, apply yakelin wraps during the day and remove at bedtime. Elevate your legs when you are sitting. ?? Home oxygen therapy: N/A ?? Follow up appointments: ?? Our office will schedule a follow-up appointment with your PCP, Reshma Baig MD, or Primary Plate Mounter, in ~ 7-10 days. ?? Our office will schedule a follow-up appointment with your Marine Plumber, Dr. Esau Rahman, in 4 weeks with a chest x-ray, EKG, Echo, and labs prior to your appointment. ? Eacg-Sylmni-og interval: After initial 30 day follow-up appointment [...] Care Everywhere. * EGD (Upper Endoscopy): Post-op (Cymraes) * Colonoscopy: Post-op (Cymraes) documented in this encounter Medications at Time [...] 10.65 400 each 3 10/03/2016 Blood-Glucose Meter [facility] One Touch Ultra Brand, 250.02. 1 each 0 12/02/2013 Lancets [facility] Use twice daily or [...] of this encounter Progress Notes * Leandra Paz Wero, AGRICULTURE SPECIALIST - 09/18/2020 1:14 PM EST Physical Therapy [...] and owns. 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 ?? Precautions/Special Considerations:??universal ? Mobility and Positioning [...] 10(TE-F 1 Time in 10:45-10:55) LEANDRA PAZ, AGRICULTURE SPECIALIST Pager: [phone] Physical Therapy Inpatient Rehabilitation Department * Renetta [...] DRAINAGE 04/28/2020 CT Guided Drain Peritoneal 04/28/2020 [facility] RAD CAT SCAN ??? HYSTERECTOMY, VAGINAL ??? IR BILIARY TUBE CHECK/CHANGE/REMOVE 06/03/2020 IR Biliary Tube Check/Change/Remove 06/03/2020 Jos Collins, DO [facility] INTERVENTIONL RAD ??? IR CHOLECYSTOSTOMY TUBE PLACEMENT 04/22/2020 IR Cholecystostomy Tube Placement 04/22/2020 Jos Collins, DO [facility] INTERVENTIONL RAD ??? IR DRAIN CHECK/CHANGE/REMOVE 05/19/2020 IR Drain Check/Change/Remove 05/19/2020 Jos Collins, DO [facility] INTERVENTIONL RAD ??? PRO COLONOSCOPY, DIAGNOSTIC N/A 09/12/2020 COLONOSCOPY, DIAGNOSTIC performed by Mane Avila MD at [facility] ENDOSCOPY ??? PRO LAP, CHOLECYSTECTOMY/GRAPH N/A 07/15/2020 LAPAROSCOPIC CHOLECYSTECTOMY WITH CHOLANGIOGRAM (WRVU 11.47) performed by Hong Rosenthal MD at [facility] MAIN OR ??? PRO UPPER GI ENDOSCOPY, BIOPSY N/A 09/12/2020 EGD WITH BIOPSY (WRVU 2.49) performed by Mane Avila MD at [facility] ENDOSCOPY ??? 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 She says it is w/c accessible. She has a stall shower with a seat and grab bar. She does not have grab bars around the toilet. 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 She ambulated w/o a device, managed her ADL's and IADL's. 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 She reports being very tired prior to [...] WFL Vision & Perception: ?? corrective lenses maritime pilot Communication: WFL Range of motion, strength, coordination: [...] and measurable assessment of functional outcome. Pager: [phone] RENETTA CONTRERAS OT 09/18/2020 Occupational Therapy Rehabilitation Department * Teresita Mccloud RN - 09/18/2020 11:22 AM EST Patient to discharge home today, [facility] walker delivered to patient room. Patient will be getting VNA services from [facility]. Orders posted by and will start care [...] therapy. Rain Winter OT Inpatient Rehab Pager #[phone] * Chioma Vann RN - 09/17/2020 2:01 [...] Home Health Agency Home Care / Non-Medical: [facility]. PHONE: [phone] FAX: [phone] Transportation: daughter Current DME: Equipment Currently Used at Home: none DME Needed at DC: Equipment Needed After Discharge: FWW [facility] Located @ [place], [place] Functional status prior to admission: independent Home Environment: Lives With: alone. Living Arrangements: apartment. . Current Functional Ability: independent with stand by assist Patient is insured through: Primary Insurance: [employer] [employer] [place] Payor: [place] [place] [employer] [place] / Plan[place]HP / Product Type: *No Product type* / Secondary Insurance: MEDICARE Prescription Coverage: yes Preferred Pharmacy: [facility] [address] [facility] [place] [place] [facility] [address] [facility] [address] [facility] [address] This plan was formulated with input from patient, family and team. All are in agreement with plan. Chioma Vann RN, MSN Type Rolling Machine Operator - Cardiology Office of Care Management Pager: [phone] Work * NaniMikala carver, PT - 09/17/2020 1:53 PM EST Physical [...] and owns. 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 ?? Precautions/Special Considerations:??none specified ? Mobility and [...] plan as stated. Time IN / OUT: 3914-0989 Total Evaluation Minutes, Physical Therapy: 25(te-fx2) MIKALA BORDEN, PT Pager: [phone] Physical Therapy Inpatient Rehabilitation Department * [place] [...] 0600 and on the weekends please page [phone]. * Jordan Davenport - 09/17/2020 11:22 AM [...] consulted in the interim. Jordan Davenport Pager: [phone] * Mikala Borden, PT - 09/16/2020 11:11 [...] and owns. 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 ?? Precautions/Special Considerations: none specified ? Mobility [...] plan as stated. Time IN / OUT: 4574-0091 Total Evaluation Minutes, Physical Therapy: 24(te-f x2) MIKALA BORDEN PT Pager: [phone] Physical Therapy Inpatient Rehabilitation Department * Almaz [...] 0600 and on the weekends please page [phone]. * Esau Rahman MD - 09/16/2020 8:11 [...] Transdermal Q24H Carol Reyna MD No current [facility]-ordered outpatient medications on file. Lab [...] received in unit S/P TAVR in the cardiac cath lab radiology technologist. While sheath being pulled patient became profoundly hypotensive requiring up to 15 mcgs of Levophed. Intubation was being considered but patient improved with blood pressure improvement. On arrival in [facility] patient was on NRB and on Levo at 2. Patient also received 1 unit of blood and 1 liter of NSaline in cardiac cath lab radiology technologist. Shortly after arrival Right groin perclose started to bleed. Pressure was held. hospital laboratory technician PA over to inject lido [...] PA - 09/15/2020 5:06 PM EST [facility] Vascular Center Interventional Cardiology Structural [...] neurological deficit. Dago Merchant PA-C Interventional Cardiology [facility] V[facility] Pager [phone] * Natalia Kamara MD - 09/15/2020 4:39 [...] lbs vs. SS weights SULEMAN Shaver Pager: [phone] * Alvin Serna MD - 09/15/2020 6:36 [...] Note: Added automatically from request for surgery [id number] ??? Obesity (BMI 30.0-34.9) ??? Aortic valve [...] additional CP, dyspnea, nausea, diaphoresis, lightheadedness, dizziness. -EGD/Keaau on 09/12 negative -TAVR scheduled for today [...] additional CP, dyspnea, nausea, diaphoresis, lightheadedness, dizziness. -EGD/Keaau on 09/12 negative -CTA for TAVR scheduled [...] AM Cardiology Team S2 Associated attestation - bAiodun Chun MD - 09/14/2020 9:14 PM EST [...] RN - 09/13/2020 3:17 PM EST The patient/guest relations representative has been provided a list of Home Health Agencies/DME vendors which servetheir preferred geographic area. A letter describing our affiliations was reviewed with them and they were educated about their right to choose where referrals are placed. Provided patient with [facility] Star Quality Rating for Home care hand out. Patient requests referral to [facility] [employer] PHONE: [phone] FAX: [phone] Expected date of discharge: 09/18/20. Referral routed to the Lathe Puller for matching with agency/vendor and to provide any required information. Chioma Vann RN, MSN Type Rolling Machine Operator - Cardiology Office of Care Management Pager: [phone] Work * Mikala Borden, PT - 09/13/2020 [...] have outpt PT eval this week in [facility] to address. Patient with the following active problems: Past Medical History: Diagnosis Date ??? Actinic keratosis 08/31/2011 ??? Diabetes ??? Seborrheic keratosis 08/31/2011 ??? Severe aortic stenosis Past Surgical History: Procedure Laterality Date ??? CT PERITONEAL DRAINAGE 04/28/2020 CT Guided Drain Peritoneal 04/28/2020 [facility] RAD CAT SCAN ??? HYSTERECTOMY, VAGINAL ??? IR BILIARY TUBE CHECK/CHANGE/REMOVE 06/03/2020 IR Biliary Tube Check/Change/Remove 06/03/2020 Jos Collins, DO [facility] INTERVENTIONL RAD ??? IR CHOLECYSTOSTOMY TUBE PLACEMENT 04/22/2020 IR Cholecystostomy Tube Placement 04/22/2020 Jos Collins, DO [facility] INTERVENTIONL RAD ??? IR DRAIN CHECK/CHANGE/REMOVE 05/19/2020 IR Drain Check/Change/Remove 05/19/2020 Jos Collins, DO [facility] INTERVENTIONL RAD ??? PRO COLONOSCOPY, DIAGNOSTIC N/A 09/12/2020 COLONOSCOPY, DIAGNOSTIC performed by Mane Avila MD at [facility] ENDOSCOPY ??? PRO LAP, CHOLECYSTECTOMY/GRAPH N/A 07/15/2020 LAPAROSCOPIC CHOLECYSTECTOMY WITH CHOLANGIOGRAM (WRVU 11.47) performed by Hong Rosenthal MD at [facility] MAIN OR ??? PRO UPPER GI ENDOSCOPY, BIOPSY N/A 09/12/2020 EGD WITH BIOPSY (WRVU 2.49) performed by Mane Avila MD at [facility] ENDOSCOPY ??? 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 Precautions/Special Considerations: none specified Mobility and Positioning [...] mobility recommendations discussed with nursing. Assessment: Shannan Tito Chaudhary was seen today [...] walker, Commode and may ultimately benefit rom palomang a FWW if it gives her some [...] in this evaluation. Time IN / OUT: 4098-8091 Total Evaluation Minutes, Physical Therapy: 20(evalDyan BORDEN PT Pager: [phone] Physical Therapy Inpatient Rehabilitation Department * Alvin [...] additional CP, dyspnea, nausea, diaphoresis, lightheadedness, dizziness. -EGD/Keaau on 09/12 negative -severe muscle spasms in [...] palpable Recent Labs 09/13/20 0539 09/12/20221609/12/20 1912 09/12/2014209/11/20 0536 WBC 6.1 -- -- [...] 0402 09/12/20 2346 09/12/20 1953 09/12/20 1555 01/17/21 1155 POCGLU 141 113 118 159 131 [...] angina Remain on single antiplatelet I will [place] back with patient/family and team once CT/surgery [...] Sarah Garland - 09/11/2020 7:52 PM EST Amf Mechanic Encounter Note Patient Name: Shannan Chaudhary : [id number] MR#: [id number] Admit Date: 09/10/2020 4:42 PM Hospital Day [...] Will f/u FOBT and GI evaluation-plan for EGD/Keaau tomorrow. Will also be worked up for [...] given acute anemia -GI to evaluate with EGD/Keaau tomorrow. Appreciate recs. ?? Diet: Clear Liquid [...] MD Gastroenterology PGY-6 09/12/2020 1:48 PM Pager #[phone] * Carol Reyna MD - 09/10/2020 10:37 PM EST Images from the original note were not included. Cardiovascular Medicine Admission History and Physical Patient Name: Shannan Chaudhary Service: S2 Team Responsible Attending: EAMON MOSER JWAN, MD PCP: Reshma Baig MD PCP phone #: [phone] ID/Chief Complaint: Shannan Chaudhary is a 80 [...] mL 2 ??? 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 may [...] Meds) - GI consult for EGD +/- [place] (Consulted, need to discuss) ENDO #IDDM2 (A1c [...] Carol Reyna MD PGY2, Cardiology S2, Pager [phone] 09/11/2020 Associated attestation - Abiodun Chun MD [...] follow up appointments with her surgeon and cyanide furnace operator today, who identified her abnormally low hemoglobin [...] components within normal limits RAPID COVID-19 PCR ([facility]/APD/[facility]H) TYPE AND SCREEN ([facility]/CGP/KAUSHIK) CBC (WITH DIFF) ABO/RH TYPING ANTIBODY SCREEN DIFFERENTIAL, AUTOMATED POCT STOOL OCCULT BLOOD ABORH RECHECK STATUS PREPARE RBC TRANSFUSE RED BLOOD CELLS - I have reviewed imaging, which is significant for: No orders to display - I have reviewed EKG results, which is significant for: INTERPRETATION Final Normal sinus rhythm Right bundle branch block Abnormal ECG When compared with ECG of 30-OCT-2020 07:16, No significant change was found Confirmed [...] Hurtado MD - 09/18/2020 2:08 PM EST [facility] SECTION OF CARDIAC SURGERY OPERATIVE REPORT 09/15/20 ? PATIENT NAME:??Shannan Chaudhary?1940?? MR#:??[id number] ? REFERRING PHYSICIAN:?? Reshma Baig MD [address] [place] [address] ?? PRE-OPERATIVE DIAGNOSIS: Severe aortic stenosis ? POST-OPERATIVE DIAGNOSIS: Same ? PROCEDURE: ?? 1. Implantation of catheter-delivered prosthetic aortic heart valve; percutaneous femoral artery approach (23??mm Bobo SAPIEN3 transcatheter heart valve) ? SURGEON: Pan Hurtado MD ? REFERRAL CLERK: ?? Esau Rahman M.D. ? ANESTHESIA:? Conscious sedation ? CLINICAL HISTORY:? This is a??80-year-old??woman with aortic stenosis. The patient was evaluated for TAVR and found blane an appropriate candidate and is now taken to the cardiac cath lab radiology technologist for transcatheter aortic valve replacement using the [...] performed. The??right??femoral??artery was accessed percutaneously and a 6-Danish sheath placed.??Additionally, the??left??common femoral??artery and??left??femoral??vein were accessed percutaneously and 6-Danish sheaths placed. ? The patient was systemically heparinized with 100 units per kg of IV heparin to goal ACT greater than 250. A 6-Danish pigtail catheter is then passed up from the??left femoral??arterial sheath and positioned in the right coronary sinus. A transvenous pacing lead is then advanced from the left??femoral vein up to the right ventricle. The #6-Danish right femoral sheath is then upsized for a 14-Danish Bobo E-sheath over a Alina wire. A root angiogram was shot, and the optimal view for visualization of the aortic root was obtained. ? The aortic valve was then crossed using a straight-tip wire and an AL- 2??catheter. The straight wire is exchanged for a long flexible J-tip wire and the AL-2??exchanged for a 6-Danish angled pigtail catheter. A stiff wire was positioned in the apex of the LV under NEELY imaging. Care is taken to avoid contact with the ventricular wall with the transition point of the wire to avoid perforation. The C-arm is then changed back to the ideal imaging plane in TURKISH. ? A 23-mm Bobo SAPIEN3 device is [...] catheters are removed over a wire. The #14-Danish introducer sheath is removed, and the??right??common femoral arteriotomy closed percutaneously two??ProGlide closure devices. After holding direct pressure for 20 minutes there was no evidence of bleeding from the closure site. ? Protamine is administered. Hemostasis is obtained. ? All sponge, needle, and instrument counts are reported correct at the end of the case. The patient is taken to cardiac cath lab radiology technologist recovery in stable condition at the end of procedure. ? and??I??jointly performed the procedure and all of the critical components ?? Attestation: Case Date: 09/15/2020 PAN HURTADO MD 09/23/2020 * Brief Op Note - Pan Hurtado MD - 09/18/2020 2:08 PM EST Brief Operative Note Patient Name: Shannan Chaudhary : [id number] MR#: [id number] Case Date: 09/15/2020 Surgeon: Surgeon(s) and Role: Panel 1: * Esau Rahman MD - Primary * Dago Merchant PA - Physician Curb Setter Panel 2: * Pan Hurtado MD - [...] RN - 09/17/2020 12:28 PM EST [facility] CARDIAC REHABILITATION Shannan Chaudhary was seen today [...] to bring back WNL. Cozaar ordered by orbyn gonzalez to start on dayshift. SR on [...] Operative Note Patient Name: Shannan Chaudhary : [id number] MR#: [id number] Case Date: 09/15/2020 Surgeon: Surgeon(s) and Role: [...] Hurtado and Amanda present during case, service cyanide furnace operator Dr Chun, and with the patient and [...] the aortic arch to position across the tazlina aortic valve. Rapid ventricular pacing was instituted, [...] DRAINAGE 04/28/2020 CT Guided Drain Peritoneal 04/28/2020 [facility] RAD CAT SCAN ??? HYSTERECTOMY, VAGINAL ??? IR BILIARY TUBE CHECK/CHANGE/REMOVE 06/03/2020 IR Biliary Tube Check/Change/Remove 06/03/2020 Jos Collins, DO [facility] INTERVENTIONL RAD ??? IR CHOLECYSTOSTOMY TUBE PLACEMENT 04/22/2020 IR Cholecystostomy Tube Placement 04/22/2020 Jos Collins, DO [facility] INTERVENTIONL RAD ??? IR DRAIN CHECK/CHANGE/REMOVE 05/19/2020 IR Drain Check/Change/Remove 05/19/2020 Jos Collins, DO [facility] INTERVENTIONL RAD ??? PRO COLONOSCOPY, DIAGNOSTIC N/A 09/12/2020 COLONOSCOPY, DIAGNOSTIC performed by Mane Avila MD at [facility] ENDOSCOPY ??? PRO LAP, CHOLECYSTECTOMY/GRAPH N/A 07/15/2020 LAPAROSCOPIC CHOLECYSTECTOMY WITH CHOLANGIOGRAM (WRVU 11.47) performed by Hong Rosenthal MD at [facility] MAIN OR ??? PRO UPPER GI ENDOSCOPY, BIOPSY N/A 09/12/2020 EGD WITH BIOPSY (WRVU 2.49) performed by Mane Avila MD at [facility] ENDOSCOPY ??? PRO UPPER GI ENDOSCOPY, DIAGNOSTIC N/A 05/03/2020 EGD, UPPER GI ENDOSCOPY performed by Brigitte Graf MD at [facility] ENDOSCOPY Social History: Social History Tobacco Use ??? Smoking status: Never Smoker ??? Smokeless tobacco: Never Used Substance Use Topics ??? Alcohol use: Not Currently Comment: occassional ??? Drug use: Never Social History Social History Narrative ??? Not on file Baptist - denies Family History: History reviewed. No [...] Outcome: Ongoing (Interventions Implemented as Appropriate) 09/13/20 [id number] Coping/Psychosocial Plan Of Care Reviewed With patient [...] MD - 09/12/2020 10:40 PM EST [facility] Operative Note Patient Name: Shannan Farleyc : [id number] MR#: [id number] Case Date: 09/12/2020 Surgeon: Surgeon(s) and Role: [...] EST Office of Care Management Initial Assessment Senior Db2 Systems Programmer DAMARIS AVILA RN reviewed record and discussed [...] for doing Advance Directives. Provided copy(ies) of [place] [employer] Advance Directives Taking Steps booklet [...] Resources: All 3 adult children supportive(2 in Ri, 1 in Pr)as well as adult grandchildren Behavioral Health History: none noted Substance Use/Abuse: Per H+P never smoked and not using ETOH, no use of illicits Other Pertinent/Service Specific Information: none Health/Prescription Coverage: Primary Insurance: [employer] ([employer] Secondary Insurance: MEDICARE Prescription Coverage: [employer] w BCBS or ? Medicare D Preferred Pharmacy: not addressed Other: food and housing secure Primary Care Provider: Reshma Baig MD [phone] Patient/Caregiver Goals of Treatment: feel better, figure this out Potential Needs for Transition of Care: Rehab/SNF: NA Home Health: will discuss; agencies serving her town are [facility] + [facility]; not anticipated DME: none Dialysis: NA Community [...] and assist with transition of care planning. Senior Db2 Systems Programmer DAMARIS AVILA RN Pager: [phone] * Consult Note - Mane Avila MD - 09/11/2020 10:34 AM EST GASTROENTEROLOGY & HEPATOLOGY CONSULTATION Initial Consult Note Requesting Provider: Abiodun Chun MD REASON FOR CONSULTATION: Fe deficiency anemia HISTORY OF PRESENT ILLNESS Shannan Chaudhayr is a 80 y.o. year old woman [...] file Gets together: Not on file Attends religion service: Not on file Active member of [...] clear liquids only and then NPO at [place] - Colonoscopy prep with 238 g miralax mixed into 64 oz of gatorade - Active T&S, maintain 2 large bore IVs - Trend H/H, maintain Hgb >8 - Continue PPI BID The plan as outlined above was discussed with Dr. Avila. The recommendations were discussed with the primary team. Asha Powell MD Gastroenterology PGY-6 09/11/2020 11:34 AM Pager #[phone] I have seen and evaluated the patient with Dr. Powell. I have reviewed the fellow's history during the encounter and I agree with the details as written above. My physical examination confirms the above findings. The assessment and plan were formulated in discussion with me at the time of the encounter and I agree with them as documented. Mane Avila MD, MS director of staff development Iron Molder Helper, Gastroenterology and Hepatology * Plan of Care [...] Routine 09/12/2020 2:04 PM EST Colonoscopy, Diagnostic (24176) 09/12/2020 1:32 PM EST upper endo/colo Upper Gi Endoscopy, Biopsy ([id number]) 09/12/2020 1:32 PM EST upper endo/colo HC [...] 09/10/2020 10:40 PM EST RAPID COVID-19 PCR ([facility]/APD/NL) STAT 09/10/2020 9:44 PM EST PREPARE RBC [...] (Bezet) 521 ms MUSE SYSTEM Calculated P Paisley 23 degrees MUSE SYSTEM Calculated R Paisley -33 degrees MUSE SYSTEM Calculated T Paisley 11 degrees MUSE SYSTEM INTERPRETATION Normal sinus [...] ECHO COMPLETE (10/18/2020 1:51 PM EST) Pathologist [facility] EF 65 HEARTLAB SYSTEM Anatomical Region Laterality Modality Other 10/18/2020 Narrative 10/18/2020 2:36 PM EST Amended Report Procedure: ?Transthoracic Echocardiogram Patient: ?HEIDY ASHER A ? (Age): 1940(80y) Med Rec#: ? [id number] ?Sex: ?F ? Site Loc: ? [facility] ?Ht / Wt: ??158(cm)/79(kg) Pt. Loc: ?Echo Lab ?BSA: ?1.81 Study Date: ?? 10/18/2020 ?Pt. Type: Outpatient Tape: ? Referring: Pan Hurtado Reading: Fang Law ([id number]) Bus And Sys Integration Senior Manager: Wilfredo Santiago RDCS Diagnosis: *Presence of prosthetic [...] Vmax ?1.19 ? m/sec ? MV deceleration [id number] ? msec ? MV A-wave Vmax ?1.68 [...] ? Mid-Inferior ?Normal ? Mid-Inferoseptal ?Normal ? [place]-Septal ? Normal ? [place]-Anterior ? Normal ? [place]-Lateral ?Normal ? [place]-Inferior ? Normal ? [place]-Tip ?Normal ? This report has been electronically signed by: Fang Law MD ? 10/18/2020 14:41:12 Images reviewed and interpretation verified [facility] Cardiac Ultrasound Laboratory Procedure Note Fang Law MD - 10/18/2020 Amended Report Procedure: Transthoracic Echocardiogram Patient: HEIDY ANDERSON(Age): 1940(80y) Med Rec#: [id number] Sex: F Site Loc: [facility] Ht / Wt: 158(cm)/79(kg) Pt. Loc: Echo Lab BSA: 1.81 Study Date: 10/18/2020 Pt. 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) [...] MV E-wave Vmax 1.19 m/sec MV deceleration [id number] msec MV A-wave Vmax 1.68 m/sec MV [...] Normal Mid-Posterolateral Normal Mid-Inferior Normal Mid-Inferoseptal Normal Axtell-Septal Normal [place]-Anterior Normal [place]-Lateral Normal [place]-Inferior Normal [place]-Tip Normal This report has been electronically signed by: Fang Law MD 10/18/2020 14:41:12 Images reviewed and interpretation verified [facility] Cardiac Ultrasound Laboratory Pan Hurtado MD ECHO ORDERABLES * (ABNORMAL) Comprehensive metabolic panel (non-fasting) (10/18/2020 11:52 AM EST) Glucose 302(H) 65 - 199 mg/dL [facility] Comment:Diabetes: >=200 mg/d L plus symptoms Blood Urea Nitrogen 18 8 - 18 mg/dL [facility] Creatinine 0.92 0.70 - 1.20 mg/dL [facility] Sodium 139 135 - 145 mmol/L [facility] Potassium 4.5 3.5 - 5.0 mmol/L [facility] Comment: Please note: ??Patients with WBC >100,000 may have falsely elevated Potassium levels. ??For accurate Potassium quantification in these patients send serum separator tube (gold top) for subsequent determinations. ??Contact the Clinical Chemistry Laboratory if there are any questions. Chloride 104 98 - 107 mmol/L [facility] Carbon Dioxide 23 22 - 31 mmol/L [facility] Anion Gap 12 5 - 15 mmol/L [facility] Calcium 9.3 8.5 - 10.5 mg/dL [facility] Protein, Total 6.9 6.1 - 8.0 gm/dL [facility] Albumin 4.5 3.2 - 5.2 gm/dL [facility] Aspartate Aminotransferase 36(H) 0 - 30 unit/L [facility] Alanine Aminotransferase 44(H) 0 - 30 unit/L [facility] Alkaline Phosphatase 125(H) 35 - 105 unit/L [facility] Bilirubin, Total 0.7 0.2 - 1.3 mg/dL [facility] Est Glomerular Filtration Rate 59(L) >=60 mL/min/1. 73 m?? [place] [...] Lab Pan Hurtado MD CHEMISTRY ORDERABL ES [facility] [place] [address] * (ABNORMAL) POCT Glucose (09/18/2020 12:21 PM EST) Glucose, POC 235(H) 65 - 199 mg/dL [facility] Comment: Supplemental ranges: <140 mg/dL before meals <180 mg/dL all other times of the day Blood specimen (specimen) 09/18/2020 12:21 PM EST 09/18/2020 12:21 PM EST Pan Hurtado MD POINT OF CARE TEST ORDERABLES [facility] [place] [address] * (ABNORMAL) POCT Glucose (09/18/2020 7:49 AM EST) Pathologist [facility] Glucose, POC 207(H) 65 - 199 mg/dL [facility] Comment: Supplemental ranges: <140 mg/dL before meals <180 mg/dL all other times of the day Blood specimen (specimen) 09/18/2020 7:49 AM EST 09/18/2020 7:49 AM EST Pan Hurtado MD POINT OF CARE TEST ORDERABLES Performing Organization Address City/[facility]/ZIP Co de Phone Number [facility] [place] [address] * (ABNORMAL) Hemogram (09/18/2020 5:35 AM EST) [facility] White Blood Cell 7.1 4.0 - 9.5 x10(3)/mc L [facility] Red Blood Cell 3.47(L) 4.00 - 5.21 x10(6)/mc L [facility] Hemoglobin 8.2(L) 11.7 - 15.5 gm/dL [facility] Hematocrit 27.2(L) 35.7 - 45.8 % [facility] Mean Cell Volume 78.4(L) 82.6 - 94.4 fL [facility] Mean Cell Hemoglobin 23.6(L) 27.1 - 32.0 pg [facility] Mean Cell Hemoglobin Concentration 30.1(L) 31.7 - 35.0 gm/dL [facility] Platelet 152 145 - 357 x10(3)/mc L [facility] RDW Standard Deviation 71.8(H) 37.0 - 46.0 fL [facility] RDW coefficient of variation 26.5(H) 11.5 - 14.1 % [facility] Mean Platelet Volume 10.7 7.6 - 12.9 fL [facility] NRBC% auto 0.0 % [facility] NRBC Absolute 0.000 0.000 - 0.000 x10(3)/mc L [facility] Blood specimen (specimen) 09/18/2020 5:35 AM EST 09/18/2020 5:47 AM EST Narrative Resulting Agency Comment Spec In Lab Pan Hurtado MD HEMATOLOGY ORDERAB LES [facility] [place] [address] * POCT Glucose (09/18/2020 4:00 AM EST) Glucose, POC 148 65 - 199 mg/dL [facility] Comment: Supplemental ranges: <140 mg/dL before meals <180 mg/dL all other times of the day Blood specimen (specimen) 09/18/2020 4:00 AM EST 09/18/2020 4:00 AM EST Pan Hurtado MD POINT OF CARE TEST ORDERABLES Performing Organization Address [facility]/ZIP Co de Phone Number [facility] [place] [address] * (ABNORMAL) POCT Glucose (09/18/2020 12:55 AM EST) Glucose, POC 207(H) 65 - 199 mg/dL [facility] Comment: Supplemental ranges: <140 mg/dL before meals <180 mg/dL all other times of the day Blood specimen (specimen) 09/18/2020 12:55 AM EST 09/18/2020 12:55 AM EST Pan Hurtado MD POINT OF CARE TEST ORDERABLES Performing Organization Address City/[facility]/ZIP Co de Phone Number [facility] [place] [address] * (ABNORMAL) POCT Glucose (09/17/2020 7:42 PM EST) Glucose, POC 217(H) 65 - 199 mg/dL [facility] Comment: Supplemental ranges: <140 mg/dL before meals <180 mg/dL all other times of the day Blood specimen (specimen) 09/17/2020 7:42 PM EST 09/17/2020 7:42 PM EST Pan Hurtado MD POINT OF CARE TEST ORDERABLES [facility] [place] [address] * POCT Glucose (09/17/2020 4:17 PM EST) Glucose, POC 165 65 - 199 mg/dL [facility] Comment: Supplemental ranges: <140 mg/dL before meals <180 mg/dL all other times of the day Blood specimen (specimen) 09/17/2020 4:17 PM EST 09/17/2020 4:17 PM EST Pan Hurtado MD POINT OF CARE TEST ORDERABLES Performing Organization Address City/[facility]/ZIP Co de Phone Number [facility] [place] [address] * POCT Glucose (09/17/2020 3:00 PM EST) Glucose, POC 178 65 - 199 mg/dL [facility] Comment: Supplemental ranges: <140 mg/dL before meals <180 mg/dL all other times of the day Blood specimen (specimen) 09/17/2020 3:00 PM EST 09/17/2020 3:00 PM EST Pan Hurtado MD POINT OF CARE TEST ORDERABLES Performing Organization Address City/[facility]/ZIP Co de Phone Number [facility] [place] [address] * (ABNORMAL) POCT Glucose (09/17/2020 11:28 AM EST) Glucose, POC 251(H) 65 - 199 mg/dL [facility] Comment: Supplemental ranges: <140 mg/dL before meals <180 mg/dL all other times of the day Blood specimen (specimen) 09/17/2020 11:28 AM EST 09/17/2020 11:28 AM EST Pan Hurtado MD POINT OF CARE TEST ORDERABLES Performing Organization Address City/[facility] Co de Phone Number [facility] [place] [address] * EKG 12 Lead (09/17/2020 9:03 AM EST) Ventricular rate 89 BPM MUSE SYSTEM Atrial Rate 89 BPM MUSE SYSTEM P-R Interval 160 ms MUSE SYSTEM QRS Duration 134 ms MUSE SYSTEM Q-T Interval 448 ms MUSE SYSTEM QTC Calculated (Bezet) 545 ms MUSE SYSTEM Calculated P Paisley 36 degrees MUSE SYSTEM Calculated R Paisley -41 degrees MUSE SYSTEM Calculated T Paisley -3 degrees MUSE SYSTEM INTERPRETATION Normal sinus rhythm Left atrial enlargement Left axis deviation Right bundle branch block Abnormal ECG When compared with ECG of 16-SEP-2020 08:57, QRS axis Shifted left Confirmed by MD Amelie, Eusebio Shelton ([id number]) on 09/17/2020 12:57:01 PM MUSE SYSTEM 09/17/2020 9:03 AM EST 09/17/2020 12:57 PM EST Almaz Carias APRN ECG ORDERABLES Performing Organization Address [facility] Co de Phone Number MUSE SYSTEM * POCT Glucose (09/17/2020 7:39 AM EST) Glucose, POC 151 65 - 199 mg/dL [facility] Comment: Supplemental ranges: <140 mg/dL before meals <180 mg/dL all other times of the day Blood specimen (specimen) 09/17/2020 7:39 AM EST 09/17/2020 7:39 AM EST Pan Hurtado MD POINT OF CARE TEST ORDERABLES [facility] [place] [address] * (ABNORMAL) Differential, Automated (09/17/2020 5:29 AM EST) Neutrophil % 77.9 % [facility] Neutrophil Absolute 7.13(H) 1.70 - 6.10 x10(3)/mc L [facility] Lymph % 10.2 % [facility] Lymphocytes Abs 0.9 0.9 - 3.2 x10(3)/mc L [facility] Monocyte % 7.4 % [facility] Monocyte Abs 0.7 0.3 - 0.9 x10(3)/mc L [facility] Eos % 3.5 % [facility] Eosinophils Abs 0.3 0.0 - 0.4 x10(3)/ L [facility] Basophil % 0.5 % [facility] Baso Absolute 0.0 0.0 - 0.1 x10(3)/mc L [facility] Immature Gran % 0.50 % [facility] Comment: Immature granulocytes(IG's)percentage and absolute count will include metamyelocytes, myelocytes, and promyelocytes. Blood smears from CBCs yielding IG's will be scanned manually for concordance. If this scan disagrees with the automated IG or if promyelocytes are noted, a manual differential will be performed. Immature Gran Absolute 0.05(H) 0.00 - 0.04 x10(3)/mc L [facility] Blood specimen (specimen) 09/17/2020 5:29 AM EST 09/17/2020 5:41 AM EST Narrative Resulting Agency Comment Spec In Lab Almaz Craias OBI HEMATOLOGY ORDERAB LES [facility] [place] [address] * (ABNORMAL) Hemogram (09/17/2020 5:29 AM EST) White Blood Cell 9.2 4.0 - 9.5 x10(3)/ L [facility] Red Blood Cell 3.78(L) 4.00 - 5.21 x10(6)/mc L [facility] Hemoglobin 8.7(L) 11.7 - 15.5 gm/dL [facility] Hematocrit 28.8(L) 35.7 - 45.8 % [facility] Mean Cell Volume 76.2(L) 82.6 - 94.4 fL [facility] Mean Cell Hemoglobin 23.0(L) 27.1 - 32.0 pg [facility] Mean Cell Hemoglobin Concentration 30.2(L) 31.7 - 35.0 gm/dL [facility] Platelet 161 145 - 357 x10(3)/[facility] RDW Standard Deviation 67.0(H) 37.0 - 46.0 [facility] RDW coefficient of variation 26.0(H) 11.5 - 14.1 % [facility] Mean Platelet Volume 9.9 7.6 - 12.9 fL [facility] NRBC% auto 0.0 % [facility] NRBC Absolute 0.000 0.000 - 0.000 x10(3)/[facility] Blood specimen (specimen) 09/17/2020 5:29 AM EST 09/17/2020 5:41 AM EST Narrative Resulting Agency Comment Spec In Lab Almaz Carias PRODUCTION WELDER HEMATOLOGY ORDERAB LES [facility] [place] [address] * (ABNORMAL) Basic Metabolic Panel (non-fasting) (09/17/2020 5:29 AM EST) Pathologist [facility] Glucose 146 65 - 199 mg/dL [facility] Comment:Diabetes: >=200 mg/d L plus symptoms Blood Urea Nitrogen 15 8 - 18 mg/dL [facility] Creatinine 0.93 0.70 - 1.20 mg/dL [facility] Sodium 139 135 - 145 mmol/L [facility] Potassium 3.9 3.5 - 5.0 mmol/L [facility] Comment: Please note: ??Patients with WBC >100,000 may have falsely elevated Potassium levels. ??For accurate Potassium quantification in these patients send serum separator tube (gold top) for subsequent determinations. ??Contact the Clinical Chemistry Laboratory if there are any questions. Chloride 108(H) 98 - 107 mmol/L [facility] Carbon Dioxide 21(L) 22 - 31 mmol/L [facility] Anion Gap 10 5 - 15 mmol/L [facility] Calcium 8.3(L) 8.5 - 10.5 mg/dL [facility] Est Glomerular Filtration Rate 58(L) >=60 mL/min/1. 73 m?? [place] [...] Agency Comment Spec In Lab Almaz Carias PRODUCTION WELDER CHEMISTRY ORDERABL ES [facility] [place] [address] * (ABNORMAL) Troponin (09/17/2020 5:29 AM EST) Troponin-T 0.02(H) 0.00 - 0.00 ng/mL [facility] Comment: The 99th percentile for Troponin T is less than 0.01 ng/mL, any detectable cTnT concentration using this assay should be considered elevated. According to the third universal definition of myocardial infarction the following criteria with a clinical presentation consistent with acute myocardial ischemia meets the diagnosis for a myocardial infarction (NV). Detection of a rise and/or fall of cTnT, with at least one value greater than the 99th percentile (> or = 0.01) and with at least one of the following ?? Symptoms of ischemia ?? New or presumed new significant DT-gnhyigp-P wave (ST-T) changes or new left bundle [...] additional sample may be indicated. Reference: Third [place]ner Definition of Myocardial Infarction. Journal of the [place] 2012;60:1581-98 Blood specimen (specimen) 09/17/2020 5:29 AM EST 09/17/2020 5:41 AM EST Narrative Resulting Agency Comment Spec In Lab Almaz Carias APRN CHEMISTRY ORDERABL ES [facility] [place] [address] * POCT Glucose (09/17/2020 3:28 AM EST) Glucose, POC 150 65 - 199 mg/dL [facility] Comment: Supplemental ranges: <140 mg/dL before meals <180 mg/dL all other times of the day Blood specimen (specimen) 09/17/2020 3:28 AM EST 09/17/2020 3:28 AM EST Pan Hurtado MD POINT OF CARE TEST ORDERABLES [facility] [place] [address] * POCT Glucose (09/17/2020 12:02 AM EST) Glucose, POC 159 65 - 199 mg/dL [facility] Comment: Supplemental ranges: <140 mg/dL before meals <180 mg/dL all other times of the day Blood specimen (specimen) 09/17/2020 12:02 AM EST 09/17/2020 12:02 AM EST Pan Hurtado MD POINT OF CARE TEST ORDERABLES [facility] [place] [address] * POCT Glucose (09/16/2020 8:47 PM EST) Glucose, POC 190 65 - 199 mg/dL [facility] Comment: Supplemental ranges: <140 mg/dL before meals <180 mg/dL all other times of the day Blood specimen (specimen) 09/16/2020 8:47 PM EST 09/16/2020 8:47 PM EST Pan Hurtado MD POINT OF CARE TEST ORDERABLES [facility] [place] [address] * POCT Glucose (09/16/2020 4:00 PM EST) Glucose, POC 186 65 - 199 mg/dL [facility] Comment: Supplemental ranges: <140 mg/dL before meals <180 mg/dL all other times of the day Blood specimen (specimen) 09/16/2020 4:00 PM EST 09/16/2020 4:00 PM EST Pan Hurtado MD POINT OF CARE TEST ORDERABLES [facility] [place] [address] * POCT Glucose (09/16/2020 2:11 PM EST) Glucose, POC 181 65 - 199 mg/dL [facility] Comment: Supplemental ranges: <140 mg/dL before meals <180 mg/dL all other times of the day Blood specimen (specimen) 09/16/2020 2:11 PM EST 09/16/2020 2:11 PM EST Pan Hurtado MD POINT OF CARE TEST ORDERABLES [facility] [address] [place] [address] * XR Chest PA & Lateral (Generic) [...] please contact the number below. Almaz Carias APRN IMG DX ORDERABLES * (ABNORMAL) POCT Glucose (09/16/2020 11:51 AM EST) Pathologist [facility] Glucose, POC 247(H) 65 - 199 mg/dL [facility] Comment: Supplemental ranges: <140 mg/dL before meals <180 mg/dL all other times of the day Blood specimen (specimen) 09/16/2020 11:51 AM EST 09/16/2020 11:51 AM EST Pan Hurtado MD POINT OF CARE TEST ORDERABLES [facility] [place] [address] * EKG 12 Lead (09/16/2020 8:57 AM EST) Ventricular rate 66 BPM MUSE SYSTEM Atrial Rate 66 BPM MUSE SYSTEM P-R Interval 174 ms MUSE SYSTEM QRS Duration 132 ms MUSE SYSTEM Q-T Interval 502 ms MUSE SYSTEM QTC Calculated (Bezet) 526 ms MUSE SYSTEM Calculated P Paisley 32 degrees MUSE SYSTEM Calculated R Paisley -17 degrees MUSE SYSTEM Calculated T Paisley -54 degrees MUSE SYSTEM INTERPRETATION Normal sinus rhythm Right bundle branch block Abnormal ECG When compared with ECG of 16-SEP-2020 05:52, (unconfirmed) No significant change was found Confirmed by MD Ramos Daniel ([id number]) on 09/16/2020 11:26:44 PM MUSE SYSTEM 09/16/2020 8:57 AM EST 09/16/2020 11:26 PM EST Pan Hurtado MD ECG ORDERABLES Performing Organization Address City/[facility]/ZIP Co de Phone Number MUSE SYSTEM * POCT Glucose (09/16/2020 8:20 AM EST) Pathologist [facility] Glucose, POC 119 65 - 199 mg/dL [facility] Comment: Supplemental ranges: <140 mg/dL before meals <180 mg/dL all other times of the day Blood specimen (specimen) 09/16/2020 8:20 AM EST 09/16/2020 8:20 AM EST Pan Hurtado MD POINT OF CARE TEST ORDERABLES Performing Organization Address City/[facility] Co de Phone Number [facility] [place] [address] * EKG 12 Lead (09/16/2020 5:52 AM EST) Ventricular rate 66 BPM MUSE SYSTEM Atrial Rate 66 BPM MUSE SYSTEM P-R Interval 164 ms MUSE SYSTEM QRS Duration 130 ms MUSE SYSTEM Q-T Interval 496 ms MUSE SYSTEM QTC Calculated (Bezet) 519 ms MUSE SYSTEM Calculated P Pais[place] 34 degrees MUSE SYSTEM Calculated R Paisley -17 degrees MUSE SYSTEM Calculated T Paisley -16 degrees MUSE SYSTEM INTERPRETATION Normal sinus rhythm Right bundle branch block Abnormal ECG When compared with ECG of 15-SEP-2020 15:18, (unconfirmed) No significant change was found I personally reviewed the tracing and edited the fellows interpretation Confirmed by fellow Anam Cazares ([id number]) on 09/16/2020 4:52:54 PM Confirmed by MD Amelie, Eusebio Shelton ([id number]) on 09/16/2020 7:19:19 PM MUSE SYSTEM 09/16/2020 5:52 AM EST 09/16/2020 7:19 PM EST Pan Hurtado MD ECG ORDERABLES MUSE SYSTEM * POCT Glucose (09/16/2020 4:07 AM EST) Pathologist [facility] Glucose, POC 132 65 - 199 mg/dL [facility] Comment: Supplemental ranges: <140 mg/dL before meals <180 mg/dL all other times of the day Blood specimen (specimen) 09/16/2020 4:07 AM EST 09/16/2020 4:07 AM EST Pan Hurtado MD POINT OF CARE TEST ORDERABLES [facility] [place] [address] * (ABNORMAL) Differential, Automated (09/16/2020 2:20 AM EST) [facility] Neutrophil % 88.7 % [facility] Neutrophil Absolute 15.05(H) 1.70 - 6.10 x10(3)/mc L [facility] Lymph % 4.5 % [facility] Lymphocytes Abs 0.8(L) 0.9 - 3.2 x10(3)/mc L [facility] Monocyte % 5.3 % [facility] Monocyte Abs 0.9 0.3 - 0.9 x10(3)/mc L [facility] Eos % 0.5 % [facility] Eosinophils Abs 0.1 0.0 - 0.4 x10(3)/mc L [facility] Basophil % 0.4 % [facility] Baso Absolute 0.1 0.0 - 0.1 x10(3)/mc L [facility] Immature Gran % 0.60 % [facility] Comment: Immature granulocytes(IG's)percentage and absolute count will include metamyelocytes, myelocytes, and promyelocytes. Blood smears from CBCs yielding IG's will be scanned manually for concordance. If this scan disagrees with the automated IG or if promyelocytes are noted, a manual differential will be performed. Immature Gran Absolute 0.10(H) 0.00 - 0.04 x10(3)/mc L [facility] Blood specimen (specimen) 09/16/2020 2:20 AM EST 09/16/2020 2:30 AM EST Narrative Resulting Agency Comment Spec In Lab Carol Reyna MD HEMATOLOGY ORDERABLES [facility] [place] [address] * (ABNORMAL) Hemogram (09/16/2020 2:20 AM EST) White Blood Cell 17.0(H) 4.0 - 9.5 x10(3)/mc L [facility] Red Blood Cell 4.26 4.00 - 5.21 x10(6)/mc L [facility] Hemoglobin 9.9(L) 11.7 - 15.5 gm/dL [facility] Hematocrit 31.6(L) 35.7 - 45.8 % [facility] Mean Cell Volume 74.2(L) 82.6 - 94.4 fL [facility] Mean Cell Hemoglobin 23.2(L) 27.1 - 32.0 pg [facility] Mean Cell Hemoglobin Concentration 31.3(L) 31.7 - 35.0 gm/dL [facility] Platelet 247 145 - 357 x10(3)/mc L [facility] RDW Standard Deviation 61.8(H) 37.0 - 46.0 fL [facility] RDW coefficient of variation 24.9(H) 11.5 - 14.1 % [facility] Mean Platelet Volume 9.9 7.6 - 12.9 fL [facility] NRBC% auto 0.1 % [facility] NRBC Absolute 0.020(H) 0.000 - 0.000 x10(3)/mc L [facility] Blood specimen (specimen) 09/16/2020 2:20 AM EST 09/16/2020 2:30 AM EST Narrative Resulting Agency Comment Spec In Lab Carol Reyna MD HEMATOLOGY ORDERABLES Performing Organization Address [facility]/ZIP Co de Phone Number [facility] [place] [address] * Magnesium (09/16/2020 2:20 AM EST) Magnesium 0.80 0.69 - 1.07 mmol/L [facility] Blood specimen (specimen) 09/16/2020 2:20 AM EST 09/16/2020 2:30 AM EST Narrative Resulting Agency Comment Spec In Lab Amarilys Cerna MD CHEMISTRY ORDERABLES Performing Organization Address [facility] Co de Phone Number [facility] [place] [address] * (ABNORMAL) BMP w/fasting Glucose (09/16/2020 2:20 AM EST) Glucose Fasting 136(H) 65 - 99 mg/dL [facility] Comment: ?Fasting* Glucose Interpretive [...] of Diabetes Mellitus, Position Statement from the [place] [employer]. ??Diabetes Care, Volume 33, Supplement 1, Aug 2009 Blood Urea Nitrogen 18 8 - 18 mg/dL [facility] Creatinine 0.99 0.70 - 1.20 mg/dL [facility] Sodium 137 135 - 145 mmol/L [facility] Potassium 4.0 3.5 - 5.0 mmol/L [facility] Carbon Dioxide 22 22 - 31 mmol/L [facility] Anion Gap 8 5 - 15 mmol/L [facility] Calcium 8.3(L) 8.5 - 10.5 mg/dL [facility] Est Glomerular Filtration Rate 54(L) >=60 mL/min/1. 73 m?? [place] [...] In Lab Amarilys Cerna MD CHEMISTRY ORDERABLES [facility] [place] [address] * APTT (09/16/2020 2:20 AM EST) Partial Thromboplastin Time 28 25 - 37 sec [facility] Comment: The PTT is NOT appropriate for heparin monitoring. Use the Anti-Xa level for heparin monitoring (HEP UFH) or LMWH monitoring (HEP LMW). A PTT less than 37 seconds generally indicates adequate hemostasis. Blood specimen (specimen) 09/16/2020 2:20 AM EST 09/16/2020 2:30 AM EST Narrative Resulting Agency Comment Spec In Lab Amarilys Cerna MD HEMATOLOGY ORDERABLE S Performing Organization Address [facility] de Phone Number [facility] [place] [address] * (ABNORMAL) Prothrombin Time (09/16/2020 2:20 AM EST) Prothrombin Time 13.3(H) 9.4 - 12.5 sec [place] MD HEMATOLOGY ORDERABLE S Performing Organization Address [facility] de Phone Number [facility] [place] [address] * POCT Glucose (09/15/2020 11:15 PM EST) Glucose, POC 146 65 - 199 mg/dL [facility] Comment: Supplemental ranges: <140 mg/dL before meals <180 mg/dL all other times of the day Blood specimen (specimen) 09/15/2020 11:15 PM EST 09/15/2020 11:15 PM EST Pan Hurtado MD POINT OF CARE TEST ORDERABLES [facility] [place] [address] * (ABNORMAL) POCT Glucose (09/15/2020 7:59 PM EST) [facility] Glucose, POC 200(H) 65 - 199 mg/dL [facility] Comment: Supplemental ranges: <140 mg/dL before meals <180 mg/dL all other times of the day Blood specimen (specimen) 09/15/2020 7:59 PM EST 09/15/2020 7:59 PM EST Pan Hurtado MD POINT OF CARE TEST ORDERABLES Performing Organization Address City/[facility]/ZIP Co de Phone Number [facility] [place] [address] * (ABNORMAL) Hemogram (09/15/2020 3:40 PM EST) [facility] White Blood Cell 8.6 4.0 - 9.5 x10(3)/mc L [facility] Red Blood Cell 4.46 4.00 - 5.21 x10(6)/mc L [facility] Hemoglobin 10.1(L) 11.7 - 15.5 gm/dL [facility] Hematocrit 33.9(L) 35.7 - 45.8 % [facility] Mean Cell Volume 76.0(L) 82.6 - 94.4 fL [facility] Mean Cell Hemoglobin 22.6(L) 27.1 - 32.0 pg [facility] Mean Cell Hemoglobin Concentration 29.8(L) 31.7 - 35.0 gm/dL [facility] Platelet 194 145 - 357 x10(3)/mc L [facility] RDW Standard Deviation 64.4(H) 37.0 - 46.0 fL [facility] RDW coefficient of variation 25.1(H) 11.5 - 14.1 % [facility] Mean Platelet Volume 10.4 7.6 - 12.9 fL [facility] NRBC% auto 0.7 % [facility] NRBC Absolute 0.060(H) 0.000 - 0.000 x10(3)/mc L [facility] Blood specimen (specimen) 09/15/2020 3:40 PM EST 09/15/2020 4:21 PM EST Narrative Resulting Agency Comment Spec In Lab Abiodun Chun MD HEMATOLOGY ORDERABLE S Performing Organization Address [facility]/ZIP Co de Phone Number [facility] [place] [address] * POCT Glucose (09/15/2020 3:28 PM EST) Glucose, POC 180 65 - 199 mg/dL [facility] Comment: Supplemental ranges: <140 mg/dL before meals <180 mg/dL all other times of the day Blood specimen (specimen) 09/15/2020 3:28 PM EST 09/15/2020 3:28 PM EST Pan Hurtado MD POINT OF CARE TEST ORDERABLES Performing Organization Address [facility] Co de Phone Number [facility] [place] [address] * ECHO COMPLETE (09/15/2020 3:24 PM EST) EF 70 HEARTLAB SYSTEM Anatomical Region Laterality Modality Other 09/15/2020 Narrative 09/16/2020 8:00 AM EST Procedure: ?Transthoracic Echocardiogram Patient: ?HEIDY ASHER A ? (Age): 1940(80y) Med Rec#: ? [id number] ?Sex: ?F ? Site Loc: ? [facility] ?Ht / Wt: ??158(cm)/78(kg) Pt. Loc: ?Apprentice Instrument Technician ?BSA: ?1.8 Study Date: ?? 09/15/2020 ?Pt. Type: Inpatient Tape: ? Referring: Esau Rahman Reading: Jos Wheeler ([id number]) [employer] Senior Manager: Danie Huff Diagnosis: *Nonrheumatic aortic (valve) stenosis [...] 09/15/2020 16:21:34 Images reviewed and interpretation verified [facility] Cardiac Ultrasound Laboratory Procedure Note Jos Wheeler MD - 09/16/2020 Procedure: Transthoracic Echocardiogram Patient: HEIDY ANDERSON(Age): 1940(80y) Med Rec#: [id number] Sex: F Site Loc: [facility] Ht / Wt: 158(cm)/78(kg) Pt. Loc: Apprentice Instrument Technician BSA: 1.8 Study Date: 09/15/2020 Pt. Type: Inpatient Tape: Referring: Esau Rahman Reading: Jos Wheeler ([id number]) [employer] Senior Manager: Danie Huff Diagnosis: *Nonrheumatic aortic (valve) stenosis [...] 09/15/2020 16:21:34 Images reviewed and interpretation verified [facility] Cardiac Ultrasound Laboratory Abiodun Chun MD ECHO ORDERABLES * EKG 12 Lead (09/15/2020 3:18 PM EST) Ventricular rate 69 BPM MUSE SYSTEM Atrial Rate 69 BPM MUSE SYSTEM P-R Interval 156 ms MUSE SYSTEM QRS Duration 136 ms MUSE SYSTEM Q-T Interval 510 ms MUSE SYSTEM QTC Calculated (Bezet) 546 ms MUSE SYSTEM Calculated P Paisley 50 degrees MUSE SYSTEM Calculated R Paisley 94 degrees MUSE SYSTEM Calculated T Paisley -21 degrees MUSE SYSTEM INTERPRETATION Normal sinus rhythm Right bundle branch block T wave abnormality, consider inferior ischemia Abnormal ECG When compared with ECG of 10-SEP-2020 13:18, Nonspecific T wave abnormality no longer evident in Anterolateral leads QT has lengthened Confirmed by MD Ramos Daniel ([id number]) on 09/16/2020 11:17:42 PM MUSE SYSTEM 09/15/2020 3:18 PM EST 09/16/2020 11:17 PM EST Abiodun Chun MD ECG ORDERABLES MUSE SYSTEM * CARDIAC CATHETERIZATION (09/15/2020 3:15 PM EST) Anatomical Region Laterality Modality Other Narrative 09/16/2020 6:34 PM EST ?[facility] ? Cardiac Catheterization/Intervention Report ? Patient Name: HEIDY, SHANNAN A. ? Procedure Date: 09/15/2020 ? A #: [id number] ? Primary Physician: Barbie, Esau Escobar ? Case #: [id number] ? File Name: [id number] ? Catheterization Order Number: [id number] ? [facility] ? Final Report [place], [place] ? Patient Name: ? SHANNAN A. HEIDY ? ID#: ?[id number] ? : ?1940 ? Procedure Date: ? September 15, 2020 ? Case #: ? [id number] ? Room: ? 6 ? Case Physicians: ?Esau Rahman M.D. ?Start: ?13:45 ?Pan Hurtado M.D. ? Admission: ??09/10/2020 ? Discharge: ??09/18/2020 ? Referring Physician: ??Reshma Baig M.D. ? Procedures: ?* Left Heart Catheterization ?* Aortic Root Aortogram ?* Transcatheter Aortic Valve Replacement ?* Temporary Pacemaker Insertion In Apprentice Instrument Technician ?* Arterial Line / Sheath Insert ?* Venous Line / Sheath Insert ?* Transesophageal Echo During Cath ?* Access Site Angiography ?* Arterial Blood Gases ?* Vascular Ultrasound ? History ?SHANNAN Francis. HEIDY is an 80 year old woman. She [...] Bobo Jemma 3 Ultra 23 mm THV (s/c=[id number]) transcatheter valve was ?inserted using standard technique. [...] dose administered prior to arrival in the cardiac cath lab radiology technologist. ?Recommended anti-platelet/anti-thrombotic regimen: ?Continue clopidogrel 75 mg daily for 3 months then stop. ?Custom Protocol: After plavix is stopped, restart asa 81 mg daily. ?These recommendations are made at the time of the intervention. Patient ?and provider preferences or a changing clinical situation may require ?modification of this regimen. Consult [facility] Interventional Cardiology for ?questions. ? Conclusions: ?* [...] ?greater than 250 seconds) followed by the [facility] e-sheath (the sheath is 14 ?Fr [...] the aortic arch ?to position across the tazl[place] aortic valve. Rapid ventricular pacing was ?instituted, [...] catheterization, ?aortic root aortogram, temporary pacemaker in cardiac cath lab radiology technologist, arterial line / ?sheath insert, venous line / sheath insert, transesophageal echo during ?cath, ABG, TAVR, access site angiography and vascular ultrasound. ?Pan Hurtado M.D. performed the left heart catheterization, aortic ?root aortogram, temporary pacemaker in cardiac cath lab radiology technologist, arterial line / sheath ?insert, venous line / sheath insert, transesophageal echo during cath, ABG ?and TAVR. ? Esau J Coylewright, ? M.D. ? Electronically Signed by: Esau Rahman M.D. ? Report Finalized: 09/16/2020 ??18:29 ? Report Last Ammended: 10/08/2020 ??11:00 ? Procedure Note Esau Rahman MD - 10/08/2020 [facility] Cardiac Catheterization/Intervention Report Patient Name: SHANNAN CHAUDHARY Procedure Date: 09/15/2020 A #: [id number] Primary Physician: Esau Rahman Case #: [id number] File Name: [id number] Catheterization Order Number: [id number] [facility] FinalReport [place], [place] Patient Name: SHANNAN Vogel HEIDY ID#:[id number] :1940 Procedure Date: September 15, 2020 Case #: Room: 6 Case Physicians: Esau Rahman M.D. Start: 13:45 Pan Hurtado M.D. Admission:09/10/2020 Discharge:09/18/2020 Referring Physician: Reshma Baig M.D. Procedures: * Left Heart Catheterization * Aortic Root Aortogram * Transcatheter Aortic Valve Replacement * Temporary Pacemaker Insertion In Apprentice Instrument Technician * Arterial Line / Sheath Insert * [...] patient was designated asASA Class IV. The [facility] clinical frailty scale is 5: Mildly [...] Bobo Jemma 3 Ultra 23 mm THV (s/g=[id number]) transcathetervalve was inserted using standard technique. Protamine [...] dose administered prior to arrival in the cardiac cath lab radiology technologist. Recommended anti-platelet/anti-thrombotic regimen: Continue clopidogrel 75 mg daily for 3 months then stop. Custom Protocol: After plavix is stopped, restart asa 81 mg daily. These recommendations are made at the time of the intervention.Patient and provider preferences or a changing clinical situation mayrequire modification of this regimen. Consult [facility] Interventional Cardiologyfor questions. Conclusions: * Severe aortic [...] around the aorticarch to position across the t[place] aortic valve. Rapid ventricular pacingwas instituted, and [...] heartcatheterization, aortic root aortogram, temporary pacemaker in cardiac cath lab radiology technologist, arterial line/ sheath insert, venous line / sheath insert, transesophageal echoduring cath, ABG, TAVR, access site angiography and vascular ultrasound. Dr. Pan Hurtado M.D. performed the left heart catheterization,aortic root aortogram, temporary pacemaker in cardiac cath lab radiology technologist, arterial line /sheath insert, venous line / sheath insert, transesophageal echo during cath,ABG and TAVR. Esau Mcgarry M.D. Electronically Signed by: Esau Rahman M.D. Report Finalized: 09/16/2020 18:29 Report Last Ammended: 10/08/2020 11:00 Esau Rahman MD CARDIAC CATH JESSICA BLOCK * (ABNORMAL) Point of Care Blood Gas Historical (09/15/2020 2:40 PM EST) pH, POC 7.44 7.35 - 7.45 [facility] pCO2, POC 26(L) 35 - 45 mmHg [facility] pO2, POC 75(L) 85 - 104 mmHg [facility] Base Excess, POC -7.0(L) -3.0 - 3.0 mmol/L [facility] Bicarbonate, POC 17.5(L) 20.0 - 26.0 mmol/L [facility] Sodium, POC 140 135 - 145 mmol/L [facility] POC Potassium 3.8 3.5 - 5.0 mmol/L [facility] POC Hematocrit 29.0(L) 34.0 - 45.0 % [facility] POC Calc Hgb 9.9(L) 11.2 - 15.7 gm/dL [facility] Comment:The calculation of h emoglobin from hematocrit assumes a normal MCHC. POC Bgas Loc CC LAB [facility] Blood specimen (specimen) 09/15/2020 2:40 PM EST 09/16/2020 9:00 AM EST Pan Hurtado MD CHEMISTRY ORDERABL ES Performing Organization Address [facility] Co de Phone Number [facility] [place] [address] * Prepare RBC (09/15/2020 2:35 PM EST) Dispensed? Yes [facility] Blood specimen (specimen) 09/15/2020 2:35 PM EST 09/15/2020 2:33 PM EST Abiodun Chun MD BLOOD BANK PRODUCT O RDERABLES Performing Organization Address [facility] [facility] Co de Phone Number [facility] [place] [address] * (ABNORMAL) Point of Care Blood Gas Historical (09/15/2020 1:51 PM EST) pH, POC 7.40 7.35 - 7.45 [facility] pCO2, POC 37 35 - 45 mmHg [facility] pO2, POC 71(L) 85 - 104 mmHg [facility] Base Excess, POC -2.0 -3.0 - 3.0 mmol/L [facility] Bicarbonate, POC 22.7 20.0 - 26.0 mmol/L [facility] Sodium, POC 142 135 - 145 mmol/L [facility] POC Potassium 3.7 3.5 - 5.0 mmol/L [facility] POC Hematocrit 25.0(L) 34.0 - 45.0 % [facility] POC Calc Hgb 8.5(L) 11.2 - 15.7 gm/dL [facility] Comment:The calculation of h emoglobin from hematocrit assumes a normal MCHC. POC Bgas Loc CC LAB [facility] Blood specimen (specimen) 09/15/2020 1:51 PM EST 09/16/2020 9:00 AM EST Pan Hurtado MD CHEMISTRY ORDERABL ES Performing Organization Address [facility]/ZIP Co de Phone Number [facility] [place] [address] * POCT Glucose (09/15/2020 1:50 PM EST) Glucose, POC 151 65 - 199 mg/dL [facility] Comment: Supplemental ranges: <140 mg/dL before meals <180 mg/dL all other times of the day Blood specimen (specimen) 09/15/2020 1:50 PM EST 09/15/2020 1:50 PM EST Abiodun Chun MD POINT OF CARE TEST O RDERATOAN Performing Organization Address [facility]/ZIP Co de Phone Number [facility] [place] [address] * POCT Glucose (09/15/2020 11:40 AM EST) Glucose, POC 176 65 - 199 mg/dL [facility] Comment: Supplemental ranges: <140 mg/dL before meals <180 mg/dL all other times of the day Blood specimen (specimen) 09/15/2020 11:40 AM EST 09/15/2020 11:40 AM EST Abiodun Chun MD POINT OF CARE TEST O RDERABLES [facility] [place] [address] * ABORH Recheck Status (09/15/2020 10:09 AM EST) ABORH Type Recheck Completed [facility] Blood specimen (specimen) 09/15/2020 10:09 AM EST 09/15/2020 10:14 AM EST Narrative Resulting Agency Comment Spec In Lab Esau Rahman MD BLOOD BANK LAB OR DERABLES Performing Organization Address City/[facility]/ZIP Co de Phone Number [facility] [place] [address] * Antibody screen (09/15/2020 10:09 AM EST) Ab Screen Interp Negative [facility] Expires at [id number] on: 09/18/2020 [facility] Blood specimen (specimen) 09/15/2020 10:09 AM EST 09/15/2020 10:14 AM EST Narrative Resulting Agency Comment Spec In Lab Esau Rahman MD BLOOD BANK LAB OR DERABLES Performing Organization Address City/[facility]/ZIP Co de Phone Number [facility] [place] [address] * ABO/Rh Typing (09/15/2020 10:09 AM EST) ABORH Type O Pos [facility] Blood specimen (specimen) 09/15/2020 10:09 AM EST 09/15/2020 10:14 AM EST Narrative Resulting Agency Comment Spec In Lab Esau Rahman MD BLOOD BANK LAB OR DERABLES Performing Organization Address City/[facility]/ZIP Co de Phone Number [facility] [place] [address] * POCT Glucose (09/15/2020 8:01 AM EST) Glucose, POC 137 65 - 199 mg/dL [facility] Comment: Supplemental ranges: <140 mg/dL before meals <180 mg/dL all other times of the day Blood specimen (specimen) 09/15/2020 8:01 AM EST 09/15/2020 8:01 AM EST Abiodun Chun MD POINT OF CARE TEST O RDERABLES [facility] [place] [address] * (ABNORMAL) Differential, Automated (09/15/2020 4:45 AM EST) [facility] Neutrophil % 56.0 % [facility] Neutrophil Absolute 3.84 1.70 - 6.10 x10(3)/mc L [facility] Lymph % 27.9 % [facility] Lymphocytes Abs 1.9 0.9 - 3.2 x10(3)/mc L [facility] Monocyte % 8.4 % [facility] Monocyte Abs 0.6 0.3 - 0.9 x10(3)/mc L [facility] Eos % 5.5 % [facility] Eosinophils Abs 0.4 0.0 - 0.4 x10(3)/mc L [facility] Basophil % 1.0 % [facility] Baso Absolute 0.1 0.0 - 0.1 x10(3)/mc L [facility] Immature Gran % 1.20 % [facility] Comment: Immature granulocytes(IG's)percentage and absolute count will include metamyelocytes, myelocytes, and promyelocytes. Blood smears from CBCs yielding IG's will be scanned manually for concordance. If this scan disagrees with the automated IG or if promyelocytes are noted, a manual differential will be performed. Immature Gran Absolute 0.08(H) 0.00 - 0.04 x10(3)/mc L [facility] Blood specimen (specimen) 09/15/2020 4:45 AM EST 09/15/2020 5:15 AM EST Narrative Resulting Agency Comment Spec In Lab Carol Reyna MD HEMATOLOGY ORDERABLES [facility] [place] [address] * (ABNORMAL) Hemogram (09/15/2020 4:45 AM EST) White Blood Cell 6.9 4.0 - 9.5 x10(3)/mc L [facility] Red Blood Cell 3.93(L) 4.00 - 5.21 x10(6)/mc L [facility] Hemoglobin 8.5(L) 11.7 - 15.5 gm/dL [facility] Hematocrit 28.2(L) 35.7 - 45.8 % [facility] Mean Cell Volume 71.8(L) 82.6 - 94.4 fL [facility] Mean Cell Hemoglobin 21.6(L) 27.1 - 32.0 pg [facility] Mean Cell Hemoglobin Concentration 30.1(L) 31.7 - 35.0 gm/dL [facility] Platelet 316 145 - 357 x10(3)/mc L [facility] RDW Standard Deviation 56.9(H) 37.0 - 46.0 fL [facility] RDW coefficient of variation 23.0(H) 11.5 - 14.1 % [facility] Mean Platelet Volume 10.2 7.6 - 12.9 fL [facility] NRBC% auto 0.0 % [facility] NRBC Absolute 0.000 0.000 - 0.000 x10(3)/mc L [facility] Blood specimen (specimen) 09/15/2020 4:45 AM EST 09/15/2020 5:15 AM EST Narrative Resulting Agency Comment Spec In Lab Carol Reyna MD HEMATOLOGY ORDERABLES Performing Organization Address [facility]/ZIP Co de Phone Number [facility] [place] [address] * Magnesium (09/15/2020 4:45 AM EST) Magnesium 0.92 0.69 - 1.07 mmol/L [facility] Blood specimen (specimen) 09/15/2020 4:45 AM EST 09/15/2020 5:15 AM EST Narrative Resulting Agency Comment Spec In Lab Amarilys Cerna MD CHEMISTRY ORDERABLES Performing Organization Address [facility] Co de Phone Number [facility] [place] [address] * (ABNORMAL) BMP w/fasting Glucose (09/15/2020 4:45 AM EST) Glucose Fasting 164(H) 65 - 99 mg/dL [facility] Comment: ?Fasting* Glucose Interpretive [...] of Diabetes Mellitus, Position Statement from the [employer]. ??Diabetes Care, Volume 33, Supplement 1, Aug 2009 Blood Urea Nitrogen 16 8 - 18 mg/dL [facility] Creatinine 0.99 0.70 - 1.20 mg/dL [facility] Sodium 139 135 - 145 mmol/L [facility] Potassium 4.2 3.5 - 5.0 mmol/L [facility] Comment: Please note: ??Patients with WBC >100,000 may have falsely elevated Potassium levels. ??For accurate Potassium quantification in these patients send serum separator tube (gold top) for subsequent determinations. ??Contact the Clinical Chemistry Laboratory if there are any questions. Chloride 106 98 - 107 mmol/L [facility] Carbon Dioxide 24 22 - 31 mmol/L [facility] Anion Gap 9 5 - 15 mmol/L [facility] Calcium 9.0 8.5 - 10.5 mg/dL [facility] Est Glomerular Filtration Rate 54(L) >=60 mL/min/1. 73 m?? [place] In Lab Amarilys Cerna MD CHEMISTRY ORDERABLES [facility] [place] [address] * APTT (09/15/2020 4:45 AM EST) Partial Thromboplastin Time 26 25 - 37 sec [facility] Comment: The PTT is NOT appropriate for heparin monitoring. Use the Anti-Xa level for heparin monitoring (HEP UFH) or LMWH monitoring (HEP LMW). A PTT less than 37 seconds generally indicates adequate hemostasis. Blood specimen (specimen) 09/15/2020 4:45 AM EST 09/15/2020 5:15 AM EST Narrative Resulting Agency Comment Spec In Lab Amarilys Cerna MD HEMATOLOGY ORDERABLE S Performing Organization Address [facility] Co de Phone Number [facility] [place] [address] * Prothrombin Time (09/15/2020 4:45 AM EST) Prothrombin Time 11.2 9.4 - 12.5 sec [facility] International Normalization Ratio 1.0 [facility] [...] MD HEMATOLOGY ORDERABLE S Performing Organization Address [facility] Co de Phone Number [facility] [place] [address] * POCT Glucose (09/15/2020 4:27 AM EST) Glucose, POC 180 65 - 199 mg/dL [facility] Comment: Supplemental ranges: <140 mg/dL before meals <180 mg/dL all other times of the day Blood specimen (specimen) 09/15/2020 4:27 AM EST 09/15/2020 4:27 AM EST Abiodun Chun MD POINT OF CARE TEST O RDERABLES Performing Organization Address City/[facility] Co de Phone Number [facility] [place] [address] * POCT Glucose (09/15/2020 12:07 AM EST) Glucose, POC 189 65 - 199 mg/dL [facility] Comment: Supplemental ranges: <140 mg/dL before meals <180 mg/dL all other times of the day Blood specimen (specimen) 09/15/2020 12:07 AM EST 09/15/2020 12:07 AM EST Abiodun Chun MD POINT OF CARE TEST O RDERABLES Performing Organization Address City/[facility] Co de Phone Number [facility] [place] [address] * (ABNORMAL) POCT Glucose (09/14/2020 8:27 PM EST) Glucose, POC 218(H) 65 - 199 mg/dL [facility] Comment: Supplemental ranges: <140 mg/dL before meals <180 mg/dL all other times of the day Blood specimen (specimen) 09/14/2020 8:27 PM EST 09/14/2020 8:27 PM EST Abiodun Chun MD POINT OF CARE TEST O RDERABLES Performing Organization Address [facility] Co de Phone Number [facility] [place] [address] * POCT Glucose (09/14/2020 5:13 PM EST) Glucose, POC 177 65 - 199 mg/dL [facility] Comment: Supplemental ranges: <140 mg/dL before meals <180 mg/dL all other times of the day Blood specimen (specimen) 09/14/2020 5:13 PM EST 09/14/2020 5:13 PM EST Abiodun Chun MD POINT OF CARE TEST O RDERABLES Performing Organization Address City/[facility] Co de Phone Number [facility] [place] [address] * POCT Glucose (09/14/2020 12:31 PM EST) Glucose, POC 168 65 - 199 mg/dL [facility] Comment: Supplemental ranges: <140 mg/dL before meals <180 mg/dL all other times of the day Blood specimen (specimen) 09/14/2020 12:31 PM EST 09/14/2020 12:31 PM EST Abiodun Chun MD POINT OF CARE TEST O RDERABLES [facility] [place] [address] * CT Angiogram Abdomen & Pelvis w [...] please contact the number below. ? Narrative 09/14/2020 1:47 PM EST EXAMINATION: CT [...] canal stenosis. Procedure Note Jos Collins, - 01/19/2021 EXAMINATION: CT ANGIOGRAM ABDOMEN AND PELVIS W [...] below. ? Electronically signed by: Raymundo Trivedi MD[facility] ([phone]), at 09/14/2020 2:29 PM Narrative 09/14/2020 2:29 [...] three sinuses of Valsalva, set equidistant: ?? TURKISH 9 cranial 5 Dhrjiyd-ph-rrzsmpgk height: Right: 12.7 mm Left: 14.1 mm [...] the three sinuses of Valsalva, set equidistant: TURKISH 9 cranial 5 Meugzrx-ou-pfffblxh height: Right: 12.7 mm Left: 14.1 mm [...] this report, please contact the number below. Amarilys Cerna MD IM CT ORDERABLES * POCT Glucose (09/14/2020 7:38 AM EST) Glucose, POC 169 65 - 199 mg/dL [facility] Comment: Supplemental ranges: <140 mg/dL before meals <180 mg/dL all other times of the day Blood specimen (specimen) 09/14/2020 7:38 AM EST 09/14/2020 7:38 AM EST Abiodun Chun MD POINT OF CARE TEST O RDERABLES Performing Organization Address City/[facility]/ZIP Co de Phone Number [facility] [place] [address] * Scan, Peripheral Blood (09/14/2020 3:51 AM EST) Pathologist [facility] Plat estimate Normal [facility] RBC Morphology Abnormal [facility] Microcyte 1-5 /HPF [facility] Ovalocytes 1-5 /HPF [facility] Blood specimen (specimen) 09/14/2020 3:51 AM EST 09/14/2020 4:09 AM EST Narrative Resulting Agency Comment Spec In Lab Carol Reyna MD HEMATOLOGY ORDERABLES Performing Organization Address [facility]/ZIP Co de Phone Number [facility] [place] [address] * (ABNORMAL) Differential, Automated (09/14/2020 3:51 AM EST) [facility] Neutrophil % 54.5 % [facility] Neutrophil Absolute 3.56 1.70 - 6.10 x10(3)/mc L [facility] Lymph % 27.2 % [facility] Lymphocytes Abs 1.8 0.9 - 3.2 x10(3)/mc L [facility] Monocyte % 9.0 % [facility] Monocyte Abs 0.6 0.3 - 0.9 x10(3)/mc L [facility] Eos % 7.6 % [facility] Eosinophils Abs 0.5(H) 0.0 - 0.4 x10(3)/mc L [facility] Basophil % 1.1 % [facility] Baso Absolute 0.1 0.0 - 0.1 x10(3)/mc L [facility] Immature Gran % 0.60 % [facility] Comment: Immature granulocytes(IG's)percentage and absolute count will include metamyelocytes, myelocytes, and promyelocytes. Blood smears from CBCs yielding IG's will be scanned manually for concordance. If this scan disagrees with the automated IG or if promyelocytes are noted, a manual differential will be performed. Immature Gran Absolute 0.04 0.00 - 0.04 x10(3)/mc L [facility] Blood specimen (specimen) 09/14/2020 3:51 AM EST 09/14/2020 4:09 AM EST Narrative Resulting Agency Comment Spec In Lab Carol Reyna MD HEMATOLOGY ORDERABLES [facility] [place] [address] * (ABNORMAL) Hemogram (09/14/2020 3:51 AM EST) White Blood Cell 6.5 4.0 - 9.5 x10(3)/ L [facility] Red Blood Cell 3.99(L) 4.00 - 5.21 x10(6)/mc L [facility] Hemoglobin 8.4(L) 11.7 - 15.5 gm/dL [facility] Hematocrit 28.7(L) 35.7 - 45.8 % [facility] Mean Cell Volume 71.9(L) 82.6 - 94.4 fL [facility] Mean Cell Hemoglobin 21.1(L) 27.1 - 32.0 pg [facility] Mean Cell Hemoglobin Concentration 29.3(L) 31.7 - 35.0 gm/dL [facility] Platelet 325 145 - 357 x10(3)/mc L [facility] RDW Standard Deviation 55.1(H) 37.0 - 46.0 fL [facility] RDW coefficient of variation 22.2(H) 11.5 - 14.1 % [facility] Mean Platelet Volume 10.0 7.6 - 12.9 fL [facility] NRBC% auto 0.3 % [facility] NRBC Absolute 0.020(H) 0.000 - 0.000 x10(3)/mc L [facility] Blood specimen (specimen) 09/14/2020 3:51 AM EST 09/14/2020 4:09 AM EST Narrative Resulting Agency Comment Spec In Lab Carol Reyna MD HEMATOLOGY ORDERABLES Performing Organization Address [facility]/ZIP Co de Phone Number [facility] [place] [address] * Magnesium (09/14/2020 3:51 AM EST) [facility] Magnesium 0.96 0.69 - 1.07 mmol/L [facility] Blood specimen (specimen) 09/14/2020 3:51 AM EST 09/14/2020 4:09 AM EST Narrative Resulting Agency Comment Spec In Lab Amarilys Cerna MD CHEMISTRY ORDERABLES Performing Organization Address [facility] Co de Phone Number [facility] [place] [address] * (ABNORMAL) Hepatic Function Panel (09/14/2020 3:51 AM EST) [facility] Protein, Total 6.2 6.1 - 8.0 gm/dL [facility] Albumin 4.2 3.2 - 5.2 gm/dL [facility] Aspartate Aminotransferase 24 0 - 30 unit/L [facility] Alanine Aminotransferase 28 0 - 30 unit/L [facility] Alkaline Phosphatase 111(H) 35 - 105 unit/L [facility] Bilirubin, Total 1.0 0.2 - 1.3 mg/dL [facility] Bilirubin, Direct 0.3 0.0 - 0.3 mg/dL [facility] Blood specimen (specimen) 09/14/2020 3:51 AM EST 09/14/2020 4:09 AM EST Narrative Resulting Agency Comment Spec In Lab Amarilys Cerna MD CHEMISTRY ORDERABLES [facility] [place] [address] * (ABNORMAL) BMP w/fasting Glucose (09/14/2020 3:51 AM EST) Glucose Fasting 159(H) 65 - 99 mg/dL [facility] Comment: ?Fasting* Glucose Interpretive [...] of Diabetes Mellitus, Position Statement from the [employer]. ??Diabetes Care, Volume 33, Supplement 1, Aug 2009 Blood Urea Nitrogen 13 8 - 18 mg/dL [facility] Creatinine 1.11 0.70 - 1.20 mg/dL [facility] Sodium 140 135 - 145 mmol/L [facility] Potassium 4.4 3.5 - 5.0 mmol/L [facility] Carbon Dioxide 24 22 - 31 mmol/L [facility] Anion Gap 9 5 - 15 mmol/L [facility] Calcium 8.9 8.5 - 10.5 mg/dL [facility] Est Glomerular Filtration Rate 47(L) >=60 mL/min/1. 73 m?? [place] Cerna MD CHEMISTRY ORDERABLES Performing Organization Address [facility] de Phone Number [facility] [place] [address] * APTT (09/14/2020 3:51 AM EST) Partial Thromboplastin Time 28 25 - 37 sec [facility] Comment: The PTT is NOT appropriate for heparin monitoring. Use the Anti-Xa level for heparin monitoring (HEP UFH) or LMWH monitoring (HEP LMW). A PTT less than 37 seconds generally indicates adequate hemostasis. Blood specimen (specimen) 09/14/2020 3:51 AM EST 09/14/2020 4:09 AM EST Narrative Resulting Agency Comment Spec In Lab Amarilys Cerna MD HEMATOLOGY ORDERABLE S Performing Organization Address [facility] Co de Phone Number [facility] [place] [address] * Prothrombin Time (09/14/2020 3:51 AM EST) Prothrombin Time 12.2 9.4 - 12.5 sec [facility] International Normalization Ratio 1.1 [facility] [...] MD HEMATOLOGY ORDERABLE S Performing Organization Address City/[facility]/ZIP Co de Phone Number [facility] [place] [address] * POCT Glucose (09/14/2020 3:18 AM EST) Glucose, POC 155 65 - 199 mg/dL [facility] Comment: Supplemental ranges: <140 mg/dL before meals <180 mg/dL all other times of the day Blood specimen (specimen) 09/14/2020 3:18 AM EST 09/14/2020 3:18 AM EST Abiodun Chun MD POINT OF CARE TEST O ISAIAH Performing Organization Address [facility] Co de Phone Number [facility] [place] [address] * POCT Glucose (09/13/2020 11:31 PM EST) Glucose, POC 198 65 - 199 mg/dL [facility] Comment: Supplemental ranges: <140 mg/dL before meals <180 mg/dL all other times of the day Blood specimen (specimen) 09/13/2020 11:31 PM EST 09/13/2020 11:31 PM EST Abiodun Chun MD POINT OF CARE TEST O ISAIAH Performing Organization Address City/[facility] Co de Phone Number [facility] [place] [address] * ABORH Recheck Status (09/13/2020 10:50 PM EST) ABORH Type Recheck Completed [facility] Blood specimen (specimen) 09/13/2020 10:50 PM EST 09/13/2020 10:58 PM EST Narrative Resulting Agency Comment Spec In Lab Carol Reyna MD BLOOD BANK LAB ORDERABLES [facility] [place] [address] * Antibody screen (09/13/2020 10:50 PM EST) [facility] Ab Screen Interp Negative [facility] Expires at [id number] on: 09/16/2020 [facility] Blood specimen (specimen) 09/13/2020 10:50 PM EST 09/13/2020 10:58 PM EST Narrative Resulting Agency Comment Spec In Lab Carol Reyna MD BLOOD BANK LAB ORDERABLES Performing Organization Address City/[facility]/ZIP Co de Phone Number [facility] [place] [address] * ABO/Rh Typing (09/13/2020 10:50 PM EST) Pathologist [facility] ABORH Type O Pos [facility] Blood specimen (specimen) 09/13/2020 10:50 PM EST 09/13/2020 10:58 PM EST Narrative Resulting Agency Comment Spec In Lab Carol Reyna MD BLOOD BANK LAB ORDERABLES Performing Organization Address City/[facility]/ZIP Co de Phone Number [facility] [place] [address] * (ABNORMAL) Hemoglobin and Hematocrit, blood (09/13/2020 10:50 PM EST) [facility] Hemoglobin 8.8(L) 11.7 - 15.5 gm/dL [facility] Hematocrit 30.0(L) 35.7 - 45.8 % [facility] Blood specimen (specimen) 09/13/2020 10:50 PM EST 09/13/2020 11:05 PM EST Narrative Resulting Agency Comment Spec In Lab Abiodun Chun MD HEMATOLOGY ORDERABLE S Performing Organization Address [facility]/ZIP Co de Phone Number [facility] [place] [address] * (ABNORMAL) POCT Glucose (09/13/2020 8:00 PM EST) Glucose, POC 203(H) 65 - 199 mg/dL [facility] Comment: Supplemental ranges: <140 mg/dL before meals <180 mg/dL all other times of the day Blood specimen (specimen) 09/13/2020 8:00 PM EST 09/13/2020 8:00 PM EST Abiodun Chun MD POINT OF CARE TEST O RDERABLES Performing Organization Address [facility] Co de Phone Number [facility] [place] [address] * POCT Glucose (09/13/2020 4:43 PM EST) Glucose, POC 192 65 - 199 mg/dL [facility] Comment: Supplemental ranges: <140 mg/dL before meals <180 mg/dL all other times of the day Blood specimen (specimen) 09/13/2020 4:43 PM EST 09/13/2020 4:43 PM EST Abiodun Chun MD POINT OF CARE TEST O RDERABLES Performing Organization Address [facility] Co de Phone Number [facility] [place] [address] * (ABNORMAL) POCT Glucose (09/13/2020 11:37 AM EST) Glucose, POC 212(H) 65 - 199 mg/dL [facility] Comment: Supplemental ranges: <140 mg/dL before meals <180 mg/dL all other times of the day Blood specimen (specimen) 09/13/2020 11:37 AM EST 09/13/2020 11:37 AM EST Abiodun Chun MD POINT OF CARE TEST O RDERABLES Performing Organization Address [facility] Co de Phone Number [facility] [place] [address] * Potassium (09/13/2020 11:25 AM EST) Potassium 4.2 3.5 - 5.0 mmol/L [facility] [facility] [facility] MD CHEMISTRY ORDERABL ES Performing Organization Address [facility] Phone Number [facility] [place] [address] * (ABNORMAL) Hemoglobin and Hematocrit, blood (09/13/2020 11:25 AM EST) Hemoglobin 9.0(L) 11.7 - 15.5 gm/dL [facility] Hematocrit 30.2(L) 35.7 - 45.8 % [facility] Blood specimen (specimen) 09/13/2020 11:25 AM EST 09/13/2020 11:39 AM EST Narrative Resulting Agency Comment Spec In Lab Abiodun Chun MD HEMATOLOGY ORDERABLE S Performing Organization Address [facility] Co de Phone Number [facility] [place] [address] * POCT Glucose (09/13/2020 7:16 AM EST) Glucose, POC 141 65 - 199 mg/dL [facility] Comment: Supplemental ranges: <140 mg/dL before meals <180 mg/dL all other times of the day Blood specimen (specimen) 09/13/2020 7:16 AM EST 09/13/2020 7:16 AM EST Abiodun Chun MD POINT OF CARE TEST O RDERABLES [facility] [place] [address] * Smear Review Report (09/13/2020 5:39 AM EST) Pathologist [facility] Smear Review Report [id number] ? Location: [facility]; [facility]; The signing pathologist has (i) examined the relevant preparation(s) for the specimen(s) and (ii) rendered or confirmed the diagnosis(es). . ? Smear Review DIAGNOSIS Peripheral blood, smear review: - Microcytic anemia compatible with iron deficiency (see Discussion). Electronically signed by: ??Evette HARRY, Tracy Conteh Verified: ??09/13/2020 ?Hematopathologist Performed at: ??-[facility] Dept. of Pathology, [place], [place] DISCUSSION The RBC morphology taken together [...] and peripheral blood smear requested for evaluation. [facility] 09/13/2020 5:39 AM EST Abigail Todd MD HEMATOLOGY ORDERABLE S Performing Organization Address City/[facility]/ZIP Co de Phone Number [facility] [place] [address] * Scan, Peripheral Blood (09/13/2020 5:39 AM EST) Plat estimate Normal [facility] RBC Morphology Abnormal [facility] Microcyte 1-5 /HPF [facility] Hypochromia Slight [facility] Ovalocytes 6-10 /HPF [facility] Tear Cell 1-5 /HPF [facility] Blood specimen (specimen) 09/13/2020 5:39 AM EST 09/13/2020 5:44 AM EST Narrative Resulting Agency Comment Spec In Lab Carol Reyna MD HEMATOLOGY ORDERABLES Performing Organization Address City/[facility]/ZIP Co de Phone Number [facility] [place] [address] * Differential, Automated (09/13/2020 5:39 AM EST) Neutrophil % 59.7 % [facility] Neutrophil Absolute 3.66 1.70 - 6.10 x10(3)/[facility] Lymph % 23.6 % [facility] Lymphocytes Abs 1.4 0.9 - 3.2 x10(3)/[facility] Monocyte % 8.8 % [facility] Monocyte Abs 0.5 0.3 - 0.9 x10(3)/[facility] Eos % 6.8 % [facility] Eosinophils Abs 0.4 0.0 - 0.4 x10(3)/[facility] Basophil % 0.8 % [facility] Baso Absolute 0.0 0.0 - 0.1 x10(3)/[facility] Immature Gran % 0.30 % [facility] Comment: Immature granulocytes(IG's)percentage and absolute count will include metamyelocytes, myelocytes, and promyelocytes. Blood smears from CBCs yielding IG's will be scanned manually for concordance. If this scan disagrees with the automated IG or if promyelocytes are noted, a manual differential will be performed. Immature Gran Absolute 0.02 0.00 - 0.04 x10(3)/[facility] Blood specimen (specimen) 09/13/2020 5:39 AM EST 09/13/2020 5:44 AM EST Narrative Resulting Agency Comment Spec In Lab Carol Reyna MD HEMATOLOGY ORDERABLES [facility] [place] [address] * (ABNORMAL) Hemogram (09/13/2020 5:39 AM EST) White Blood Cell 6.1 4.0 - 9.5 x10(3)/mc L [facility] Red Blood Cell 4.01 4.00 - 5.21 x10(6)/ L [facility] Hemoglobin 8.5(L) 11.7 - 15.5 gm/dL [facility] Hematocrit 28.2(L) 35.7 - 45.8 % [facility] Mean Cell Volume 70.3(L) 82.6 - 94.4 fL [facility] Mean Cell Hemoglobin 21.2(L) 27.1 - 32.0 pg [facility] Mean Cell Hemoglobin Concentration 30.1(L) 31.7 - 35.0 gm/dL [facility] Platelet 315 145 - 357 x10(3)/mc L [facility] RDW Standard Deviation 51.5(H) 37.0 - 46.0 fL [facility] RDW coefficient of variation 20.8(H) 11.5 - 14.1 % [facility] Mean Platelet Volume 9.8 7.6 - 12.9 fL [facility] NRBC% auto 0.3 % [facility] NRBC Absolute 0.020(H) 0.000 - 0.000 x10(3)/mc L [facility] Blood specimen (specimen) 09/13/2020 5:39 AM EST 09/13/2020 5:44 AM EST Narrative Resulting Agency Comment Spec In Lab Carol Reyna MD HEMATOLOGY ORDERABLES Performing Organization Address City/[facility]/ZIP Co de Phone Number [facility] [place] [address] * Magnesium (09/13/2020 5:39 AM EST) Magnesium 1.04 0.69 - 1.07 mmol/L [facility] Blood specimen (specimen) 09/13/2020 5:39 AM EST 09/13/2020 5:44 AM EST Narrative Resulting Agency Comment Spec In Lab Amarilys Cerna MD CHEMISTRY ORDERABLES Performing Organization Address City/[facility]/ZIP Co de Phone Number [facility] [place] [address] * (ABNORMAL) Hepatic Function Panel (09/13/2020 5:39 AM EST) Pathologist [facility] Protein, Total 6.3 6.1 - 8.0 gm/dL [facility] Albumin 4.0 3.2 - 5.2 gm/dL [facility] Aspartate Aminotransferase 41(H) 0 - 30 unit/L [facility] Comment:result rechecked-KS Alanine Aminotransferase 30 0 - 30 unit/L [facility] Alkaline Phosphatase 110(H) 35 - 105 unit/L [facility] Bilirubin, Total 1.9(H) 0.2 - 1.3 mg/dL [facility] Bilirubin, Direct 0.4(H) 0.0 - 0.3 mg/dL [facility] Blood specimen (specimen) 09/13/2020 5:39 AM EST 09/13/2020 5:44 AM EST Narrative Resulting Agency Comment Spec In Lab Amarilys Cerna MD CHEMISTRY ORDERABLES [facility] [place] [address] * (ABNORMAL) BMP w/fasting Glucose (09/13/2020 5:39 AM EST) Pathologist [facility] Glucose Fasting 136(H) 65 - 99 mg/dL [facility] Comment: ?Fasting* Glucose Interpretive [...] of Diabetes Mellitus, Position Statement from the [employer]. ??Diabetes Care, Volume 33, Supplement 1, Aug 2009 Blood Urea Nitrogen 12 8 - 18 mg/dL [facility] Creatinine 0.98 0.70 - 1.20 mg/dL [facility] Sodium 141 135 - 145 mmol/L [facility] Potassium 4.3 3.5 - 5.0 mmol/L [facility] Comment: Please note: ??Patients with WBC >100,000 may have falsely elevated Potassium levels. ??For accurate Potassium quantification in these patients send serum separator tube (gold top) for subsequent determinations. ??Contact the Clinical Chemistry Laboratory if there are any questions. Chloride 108(H) 98 - 107 mmol/L [facility] Carbon Dioxide 23 22 - 31 mmol/L [facility] Anion Gap 10 5 - 15 mmol/L [facility] Calcium 8.8 8.5 - 10.5 mg/dL [facility] Est Glomerular Filtration Rate 54(L) >=60 mL/min/1. 73 m?? [place] [...] In Lab Amarilys Cerna MD CHEMISTRY ORDERABLES [facility] [place] [address] * APTT (09/13/2020 5:39 AM EST) Partial Thromboplastin Time 29 25 - 37 sec [facility] Comment: The PTT is NOT appropriate for heparin monitoring. Use the Anti-Xa level for heparin monitoring (HEP UFH) or LMWH monitoring (HEP LMW). A PTT less than 37 seconds generally indicates adequate hemostasis. Blood specimen (specimen) 09/13/2020 5:39 AM EST 09/13/2020 5:44 AM EST Narrative Resulting Agency Comment Spec In Lab Amariyls Cerna MD HEMATOLOGY ORDERABLE S Performing Organization Address [facility] de Phone Number [facility] [place] [address] * (ABNORMAL) Prothrombin Time (09/13/2020 5:39 AM EST) Prothrombin Time 12.8(H) 9.4 - 12.5 sec [facility] International Normalization Ratio 1.1 [facility] [...] MD HEMATOLOGY ORDERABLE S Performing Organization Address [facility] de Phone Number [facility] [place] [address] * Peripheral Smear Review (09/13/2020 5:39 AM EST) Peripheral Smear Review See Comment [facility] Comment: When completed by the Pathologist, report [id number] will display under Hematopathology Reports. Blood specimen (specimen) 09/13/2020 5:39 AM EST 09/13/2020 5:44 AM EST Narrative Resulting Agency Comment Spec In Lab Abiodun Chun MD HEMATOLOGY ORDERABLE S Performing Organization Address City/[facility]/ZIP Co de Phone Number [facility] [place] [address] * POCT Glucose (09/13/2020 4:02 AM EST) Glucose, POC 113 65 - 199 mg/dL [facility] Comment: Supplemental ranges: <140 mg/dL before meals <180 mg/dL all other times of the day Blood specimen (specimen) 09/13/2020 4:02 AM EST 09/13/2020 4:02 AM EST Abiodun Chun MD POINT OF CARE TEST O RDERABLES Performing Organization Address [facility]/ZIP Co de Phone Number [facility] [place] [address] * POCT Glucose (09/12/2020 11:46 PM EST) Glucose, POC 118 65 - 199 mg/dL [facility] Comment: Supplemental ranges: <140 mg/dL before meals <180 mg/dL all other times of the day Blood specimen (specimen) 09/12/2020 11:46 PM EST 09/12/2020 11:46 PM EST Abiodun Chun MD POINT OF CARE TEST O RDERABLES Performing Organization Address City/[facility]/ZIP Co de Phone Number [facility] [place] [address] * (ABNORMAL) Hemoglobin and Hematocrit, blood (09/12/2020 10:17 PM EST) Hemoglobin 8.8(L) 11.7 - 15.5 gm/dL [facility] Hematocrit 29.2(L) 35.7 - 45.8 % [facility] Blood specimen (specimen) 09/12/2020 10:17 PM EST 09/12/2020 10:27 PM EST Narrative Resulting Agency Comment Spec In Lab Abiodun Chun MD HEMATOLOGY ORDERABLE S Performing Organization Address [facility] Co de Phone Number [facility] [place] [address] * Potassium (09/12/2020 10:17 PM EST) [facility] Potassium 4.2 3.5 - 5.0 mmol/L [place] Chun MD CHEMISTRY ORDERABLES Performing Organization Address [facility] Co de Phone Number [facility] [place] [address] * POCT Glucose (09/12/2020 7:53 PM EST) [facility] Glucose, POC 159 65 - 199 mg/dL [facility] Comment: Supplemental ranges: <140 mg/dL before meals <180 mg/dL all other times of the day Blood specimen (specimen) 09/12/2020 7:53 PM EST 09/12/2020 7:53 PM EST Abiodun Chun MD POINT OF CARE TEST O RDERABLES Performing Organization Address [facility] Co de Phone Number [facility] [place] [address] * (ABNORMAL) Hemoglobin and Hematocrit, blood (09/12/2020 7:12 PM EST) Pathologist [facility] Hemoglobin 8.7(L) 11.7 - 15.5 gm/dL [facility] Hematocrit 28.3(L) 35.7 - 45.8 % [facility] Blood specimen (specimen) 09/12/2020 7:12 PM EST 09/12/2020 8:17 PM EST Narrative Resulting Agency Comment Spec In Lab Amarilys Cerna MD HEMATOLOGY ORDERABLE S Performing Organization Address [facility] de Phone Number [facility] [place] [address] * POCT Glucose (09/12/2020 3:55 PM EST) Glucose, POC 131 65 - 199 mg/dL [facility] Comment: Supplemental ranges: <140 mg/dL before meals <180 mg/dL all other times of the day Blood specimen (specimen) 09/12/2020 3:55 PM EST 09/12/2020 3:55 PM EST Abiodun Chun MD POINT OF CARE TEST O ISAIAH Performing Organization Address [facility] Co de Phone Number [facility] [place] [address] * Specimen to Pathology (09/12/2020 2:45 PM EST) AP Specimen 09/12/2020 2:45 PM EST 09/12/2020 2:45 PM EST Narrative [facility] - 09/12/2020 2:45 PM EST Specimen requisition ordered. ??Separate Pathology report to follow Abiodun Chun MD PATHOLOGY/CYTOLOGY O ISAIAH Performing Organization Address [facility] de Phone Number [facility] [place] [address] * Surgical Pathology Report (09/12/2020 2:04 PM EST) Final Diagnosis [id number] ? Location: [facility]; [facility]; A The signing pathologist has (i) examined the relevant preparation(s) for the specimen(s) and (ii) rendered or confirmed the diagnosis(es). . ?Surgical Pathology DIAGNOSIS Stomach, ??biopsy: Gastric antral and fundic gland mucosa with nonspecific reactive gastropathy. No H. pylori-like microorganism is seen. Electronically signed by: ??Chhaya Sandra MD Verified: ??09/20/2020 ?Pathologist Performed at: ??-[facility] Dept. of Pathology, [place], [place] SPECIMEN(S) SUBMITTED A - gastric biopsies. ??R/O H. Pylori, biopsy (Multiple) CLINICAL INFORMATION [place] SPECIMEN PROCESSING A - Labeled/Fixative: Gastric biopsies, rule out H. pylori, formalin. Quantity/Size: Multiple, ranging from 0.2-0.4 cm. Tissue Description: Soft, dowell tissues. Sections/Processi ng: Submitted en toto ??in 2 cassettes labeled A1-A2. ??sns 09/20/2020 2:05 PM EST [facility] GI Biopsy 09/12/2020 2:04 PM EST 09/12/2020 2:04 PM EST Mane Avila MD PATHOLOGY/CYTOLOGY O RDERABLES [facility] [place] [address] * Potassium (09/12/2020 1:11 PM EST) Potassium 3.9 3.5 - 5.0 mmol/L [place] MD CHEMISTRY ORDERABL ES Performing Organization Address [facility] Co de Phone Number [facility] [place] [address] * (ABNORMAL) Hemoglobin and Hematocrit, blood (09/12/2020 1:11 PM EST) Pathologist [facility] Hemoglobin 8.4(L) 11.7 - 15.5 gm/dL [facility] Hematocrit 27.9(L) 35.7 - 45.8 % [facility] Blood specimen (specimen) 09/12/2020 1:11 PM EST 09/12/2020 1:17 PM EST Narrative Resulting Agency Comment Spec In Lab Amarilys Cerna MD HEMATOLOGY ORDERABLE S Performing Organization Address [facility] Co de Phone Number [facility] [place] [address] * UPPER GI ENDOSCOPY (09/12/2020 12:57 PM EST) UPPER GI ENDOSCOPY [facility] Endoscopy Procedure Date: 09/12/2020 12:57 PM ? Patient Name: Shannan Chaudhary ? N: [id number] ? Date of : 1940 ? Age: 80 ? Order #: [id number] ? Instrument Name: [id number] ? Procedure: ? Upper GI endoscopy Indications: ? Iron deficiency anemia Providers: ? Mane Avila MD, Asha Escobar. ? Isabel Powell, Harris De Guzman ? Mary Johnson MD: [...] * COLONOSCOPY (09/12/2020 12:56 PM EST) COLONOSCOPY [facility] Endoscopy Procedure Date: 09/12/2020 12:56 PM ? Patient Name: Shannan Chaudhary ? Date of : 1940 ? Age: 80 ? Order #: [id number] ? Instrument Name: [id number] ? Procedure: ? Colonoscopy Indications: ? Iron [...] Glucose, POC 125 65 - 199 mg/dL [facility] Comment: Supplemental ranges: <140 mg/dL before meals <180 mg/dL all other times of the day Blood specimen (specimen) 09/12/2020 11:55 AM EST 09/12/2020 11:55 AM EST Abiodun Chun MD POINT OF CARE TEST O RDERABLES Performing Organization Address [facility] Co de Phone Number [facility] [place] [address] * POCT Glucose (09/12/2020 8:06 AM EST) Glucose, POC 142 65 - 199 mg/dL [facility] Comment: Supplemental ranges: <140 mg/dL before meals <180 mg/dL all other times of the day Blood specimen (specimen) 09/12/2020 8:06 AM EST 09/12/2020 8:06 AM EST Abiodun Chun MD POINT OF CARE TEST O RDERABLES Performing Organization Address [facility] Co de Phone Number [facility] [place] [address] * (ABNORMAL) Hemoglobin and Hematocrit, blood (09/12/2020 7:47 AM EST) Hemoglobin 8.0(L) 11.7 - 15.5 gm/dL [facility] Hematocrit 26.0(L) 35.7 - 45.8 % [facility] Blood specimen (specimen) 09/12/2020 7:47 AM EST 09/12/2020 7:52 AM EST Narrative Resulting Agency Comment Spec In Lab Amarilys Cerna MD HEMATOLOGY ORDERABLE S [facility] [place] [address] * POCT Glucose (09/12/2020 4:38 AM EST) Glucose, POC 173 65 - 199 mg/dL [facility] Comment: Supplemental ranges: <140 mg/dL before meals <180 mg/dL all other times of the day Blood specimen (specimen) 09/12/2020 4:38 AM EST 09/12/2020 4:38 AM EST Abiodun Chun MD POINT [place] [address] * Differential, Automated (09/12/2020 1:43 AM EST) [facility] Neutrophil % 59.2 % [facility] Neutrophil Absolute 4.62 1.70 - 6.10 x10(3)/[facility] Lymph % 25.0 % [facility] Lymphocytes Abs 2.0 0.9 - 3.2 x10(3)/[facility] Monocyte % 10.8 % [facility] Monocyte Abs 0.8 0.3 - 0.9 x10(3)/[facility] LABORATORY Eos % 3.7 % [facility] Eosinophils Abs 0.3 0.0 - 0.4 x10(3)/[facility] LABORATORY Basophil % 1.0 % [facility] Baso Absolute 0.1 0.0 - 0.1 x10(3)/[facility] LABORATORY Immature Gran % 0.30 % [facility] Comment: Immature granulocytes(IG's)percentage and absolute count will include metamyelocytes, myelocytes, and promyelocytes. Blood smears from CBCs yielding IG's will be scanned manually for concordance. If this scan disagrees with the automated IG or if promyelocytes are noted, a manual differential will be performed. Immature Gran Absolute 0.02 0.00 - 0.04 x10(3)/mcL [facility] Blood specimen (specimen) 09/12/2020 1:43 AM EST 09/12/2020 1:48 AM EST Narrative Resulting Agency Comment Spec In Lab Carol Reyna MD HEMATOLOGY ORDERABLES [facility] [place] [address] * (ABNORMAL) Hemogram (09/12/2020 1:43 AM EST) White Blood Cell 7.8 4.0 - 9.5 x10(3)/[facility] LABORAT[facility] Red Blood Cell 4.35 4.00 - 5.21 x10(6)/[facility] LABORATORY Hemoglobin 9.3(L) 11.7 - 15.5 gm/dL [facility] Hematocrit 30.8(L) 35.7 - 45.8 % [facility] Mean Cell Volume 70.8(L) 82.6 - 94.4 fL [facility] Mean Cell Hemoglobin 21.4(L) 27.1 - 32.0 pg [facility] Mean Cell Hemoglobin Concentration 30.2(L) 31.7 - 35.0 gm/dL [facility] Platelet 353 145 - 357 x10(3)/[facility] LABORATORY RDW Standard Deviation 50.0(H) 37.0 - 46.0 [facility]ORY RDW coefficient of variation 19.9(H) 11.5 - 14.1 % [facility] Mean Platelet Volume 10.3 7.6 - 12.9 fL [facility] NRBC% auto 0.3 % [facility] NRBC Absolute 0.020(H) 0.000 - 0.000 x10(3)/[facility] LABORATORY Blood specimen (specimen) 09/12/2020 1:43 AM EST 09/12/2020 1:48 AM EST Narrative Resulting Agency Comment Spec In Lab Carol Reyna MD HEMATOLOGY ORDERABLES Performing Organization Address [facility] Co de Phone Number [facility] [place] [address] * Magnesium (09/12/2020 1:43 AM EST) Pathologist [facility] Magnesium 1.05 0.69 - 1.07 mmol/L [facility] Blood specimen (specimen) 09/12/2020 1:43 AM EST 09/12/2020 1:48 AM EST Narrative Resulting Agency Comment Spec In Lab Amarilys Cerna MD CHEMISTRY ORDERABLES Performing Organization Address [facility] Phone Number [facility] [place] [address] * (ABNORMAL) Hepatic Function Panel (09/12/2020 1:43 AM EST) [facility] Protein, Total 7.1 6.1 - 8.0 gm/dL [facility] Albumin 4.5 3.2 - 5.2 gm/dL [facility] Aspartate Aminotransferase 23 0 - 30 unit/L [facility] Alanine Aminotransferase 21 0 - 30 unit/L [facility] Alkaline Phosphatase 120(H) 35 - 105 unit/L [facility] Bilirubin, Total 2.7(H) 0.2 - 1.3 mg/dL [facility] Bilirubin, Direct 0.3 0.0 - 0.3 mg/dL [facility] Blood specimen (specimen) 09/12/2020 1:43 AM EST 09/12/2020 1:48 AM EST Narrative Resulting Agency Comment Spec In Lab Amarilys Cerna MD CHEMISTRY ORDERABLES Performing Organization Address [facility] Co mn Phone Number [facility] [place] [address] * (ABNORMAL) BMP w/fasting Glucose (09/12/2020 1:43 AM EST) [facility] Signature Glucose Fasting 136(H) 65 - 99 mg/dL [facility] Comment: ?Fasting* Glucose Interpretive [...] of Diabetes Mellitus, Position Statement from the [place]. ??Diabetes Care, Volume 33, Supplement 1, Aug 2009 Blood Urea Nitrogen 17 8 - 18 mg/dL [facility] Creatinine 1.15 0.70 - 1.20 mg/dL [facility] Sodium 140 135 - 145 mmol/L [facility] Comment:result rechecked-[place] Potassium 4.2 3.5 - 5.0 mmol/L [facility] Comment: result rechecked-KS Please note: ??Patients with WBC >100,000 may have falsely elevated Potassium levels. ??For accurate Potassium quantification in these patients send serum separator tube (gold top) for subsequent determinations. ??Contact the Clinical Chemistry Laboratory if there are any questions. Chloride 102 98 - 107 mmol/L [facility] Comment:result rechecked-[place] Carbon Dioxide 24 22 - 31 mmol/L [facility] Anion Gap 14 5 - 15 mmol/L [facility] Calcium 9.3 8.5 - 10.5 mg/dL [facility] Est Glomerular Filtration Rate 45(L) >=60 mL/min/1. 73 m?? [place] Cerna MD CHEMISTRY ORDERABLES Performing Organization Address [facility] de Phone Number [facility] [place] [address] * APTT (09/12/2020 1:43 AM EST) Partial Thromboplastin Time 25 25 - 37 sec [facility] Comment: The PTT is NOT appropriate for heparin monitoring. Use the Anti-Xa level for heparin monitoring (HEP UFH) or LMWH monitoring (HEP LMW). A PTT less than 37 seconds generally indicates adequate hemostasis. Blood specimen (specimen) 09/12/2020 1:43 AM EST 09/12/2020 1:48 AM EST Narrative Resulting Agency Comment Spec In Lab Amarilys Cerna MD HEMATOLOGY ORDERABLE S Performing Organization Address [facility] Co de Phone Number [facility] [place] [address] * (ABNORMAL) Prothrombin Time (09/12/2020 1:43 AM EST) Prothrombin Time 12.9(H) 9.4 - 12.5 sec [facility] International Normalization Ratio 1.1 [facility] [...] MD HEMATOLOGY ORDERABLE S Performing Organization Address [facility]/ZIP Co de Phone Number [facility] [place] [address] * POCT Glucose (09/11/2020 11:48 PM EST) Glucose, POC 121 65 - 199 mg/dL [facility] Comment: Supplemental ranges: <140 mg/dL before meals <180 mg/dL all other times of the day Blood specimen (specimen) 09/11/2020 11:48 PM EST 09/11/2020 11:48 PM EST Abiodun Chun MD POINT OF CARE TEST O RDROBIN Performing Organization Address [facility] Co de Phone Number [facility] [place] [address] * POCT Glucose (09/11/2020 8:19 PM EST) Glucose, POC 179 65 - 199 mg/dL [facility] Comment: Supplemental ranges: <140 mg/dL before meals <180 mg/dL all other times of the day Blood specimen (specimen) 09/11/2020 8:19 PM EST 09/11/2020 8:19 PM EST Abiodun Chun MD POINT OF CARE TEST O RDERABLES Performing Organization Address [facility] Co de Phone Number [facility] [place] [address] * POCT Glucose (09/11/2020 7:40 PM EST) Glucose, POC 181 65 - 199 mg/dL [facility] Comment: Supplemental ranges: <140 mg/dL before meals <180 mg/dL all other times of the day Blood specimen (specimen) 09/11/2020 7:40 PM EST 09/11/2020 7:40 PM EST Abiodun Chun MD POINT OF CARE TEST O RDERABLES Performing Organization Address City/[facility]/ZIP Co de Phone Number [facility] [place] [address] * (ABNORMAL) Hemoglobin and Hematocrit, blood (09/11/2020 6:22 PM EST) Hemoglobin 8.2(L) 11.7 - 15.5 gm/dL [facility] Hematocrit 26.9(L) 35.7 - 45.8 % [facility] Blood specimen (specimen) 09/11/2020 6:22 PM EST 09/11/2020 6:55 PM EST Narrative Resulting Agency Comment Spec In Lab Amarilys Cerna MD HEMATOLOGY ORDERABLE S Performing Organization Address [facility] Co de Phone Number [facility] [place] [address] * (ABNORMAL) POCT Glucose (09/11/2020 5:17 PM EST) Glucose, POC 285(H) 65 - 199 mg/dL [facility] Comment: Supplemental ranges: <140 mg/dL before meals <180 mg/dL all other times of the day Blood specimen (specimen) 09/11/2020 5:17 PM EST 09/11/2020 5:17 PM EST Abiodun Chun MD POINT OF CARE TEST O RDERABLES Performing Organization Address City/[facility]/ZIP Co de Phone Number [facility] [place] [address] * POCT Glucose (09/11/2020 12:16 PM EST) Glucose, POC 120 65 - 199 mg/dL [facility] Comment: Supplemental ranges: <140 mg/dL before meals <180 mg/dL all other times of the day Blood specimen (specimen) 09/11/2020 12:16 PM EST 09/11/2020 12:16 PM EST Abiodun Chun MD POINT OF CARE TEST O RDERABLES Performing Organization Address [facility] de Phone Number [facility] [place] [address] * (ABNORMAL) Potassium (09/11/2020 11:47 AM EST) Potassium 3.0(Criti ciera) 3.5 - 5.0 mmol/L [facility] Comment: Called by: miguelina, [...] Chun MD CHEMISTRY ORDERABLES Performing Organization Address [facility] Co de Phone Number [facility] [place] [address] * (ABNORMAL) Hemoglobin and Hematocrit, blood (09/11/2020 11:47 AM EST) Hemoglobin 8.4(L) 11.7 - 15.5 gm/dL [facility] Hematocrit 26.8(L) 35.7 - 45.8 % [facility] Blood specimen (specimen) 09/11/2020 11:47 AM EST 09/11/2020 12:19 PM EST Narrative Resulting Agency Comment Spec In Lab Amarilys Cerna MD HEMATOLOGY ORDERABLE S Performing Organization Address [facility]/ZIP Co de Phone Number [facility] [place] [address] * (ABNORMAL) Ferritin (09/11/2020 11:47 AM EST) [facility] Ferritin 12(L) 30 - 400 ng/mL [facility] Comment: Pediatric reference ranges not verified at [facility], interpret with caution. Reference ranges for females greater than 50 years of age approach values for men, i.e., 30-400 ng/mL. Blood specimen (specimen) 09/11/2020 11:47 AM EST 09/11/2020 12:19 PM EST Narrative Resulting Agency Comment Spec In Lab Abiodun Chun MD CHEMISTRY ORDERABLES Performing Organization Address [facility] Co de Phone Number [facility] [place] [address] * (ABNORMAL) Iron and TIBC (09/11/2020 11:47 AM EST) [facility] Iron 33 30 - 150 mcg/dL [facility] TIBC 494(H) 250 - 450 mcg/dL [facility] Iron Saturation 7(L) 20 - 50 % [facility] Blood specimen (specimen) 09/11/2020 11:47 AM EST 09/11/2020 12:19 PM EST Narrative Resulting Agency Comment Spec In Lab Abiodun Chun MD CHEMISTRY ORDERABLES Performing Organization Address City/[facility]/ZIP Co de Phone Number [facility] [place] [address] * Scan, Peripheral Blood (09/11/2020 5:36 AM EST) [facility] Plat estimate Normal [facility] RBC Morphology Abnormal [facility] Microcyte gtr than 10 /HPF [facility] Hypochromia Moderate [facility] Polychromasia Present >5/HPF [facility] Ovalocytes 1-5 /HPF [facility] Plat, Giant Less than 1 /HPF [facility] Blood specimen (specimen) 09/11/2020 5:36 AM EST 09/11/2020 6:02 AM EST Narrative Resulting Agency Comment Spec In Lab Carol Reyna MD HEMATOLOGY ORDERABLES [facility] [place] [address] * (ABNORMAL) Hemoglobin A1c (09/11/2020 5:36 AM EST) Hemoglobin A1c 8.3(H) 4.3 - 5.6 % [facility] Comment: Reference Range: 4.3 [...] Mellitus, Diabetes Care 2013; 36: Suppl. 1, H77-20 Estimated Average Glucose See note mg/dL [facility] Comment: Estimated Average Glucose [...] into estimated average glucose values. ??Diabetes Care 2008:31(8):9218-4987. Blood specimen (specimen) 09/11/2020 5:36 AM EST 09/11/2020 6:02 AM EST Narrative Resulting Agency Comment Spec In Lab Amarilys Cerna MD CHEMISTRY ORDERABLES Performing Organization Address [facility] Co de Phone Number [facility] [place] [address] * Peripheral Smear Review (09/11/2020 5:36 AM EST) Peripheral Smear Review See Comment [facility] Comment: When completed by the Pathologist, report [id number] will display under Hematopathology Reports. Blood specimen (specimen) 09/11/2020 5:36 AM EST 09/11/2020 6:02 AM EST Narrative Resulting Agency Comment Spec In Lab Amarilys Cerna MD HEMATOLOGY ORDERABLE S Performing Organization Address [facility] Co de Phone Number [facility] [place] [address] * Differential, Automated (09/11/2020 5:36 AM EST) Neutrophil % 63.0 % [facility] Neutrophil Absolute 4.84 1.70 - 6.10 x10(3)/[facility] LABORATORY Lymph % 23.9 % [facility] Lymphocytes Abs 1.8 0.9 - 3.2 x10(3)/[facility] LABORATORY Monocyte % 8.7 % [facility] Monocyte Abs 0.7 0.3 - 0.9 x10(3)/[facility] LABORATORY Eos % 3.0 % [facility] Eosinophils Abs 0.2 0.0 - 0.4 x10(3)/[facility] LABOR[facility] Basophil % 0.9 % [facility] Baso Absolute 0.1 0.0 - 0.1 x10(3)/[facility]ORAT[facility] Immature Gran % 0.50 % [facility] Comment: Immature granulocytes(IG's)percentage and absolute count will include metamyelocytes, myelocytes, and promyelocytes. Blood smears from CBCs yielding IG's will be scanned manually for concordance. If this scan disagrees with the automated IG or if promyelocytes are noted, a manual differential will be performed. Immature Gran Absolute 0.04 0.00 - 0.04 x10(3)/[facility] LABORAT[facility] Blood specimen (specimen) 09/11/2020 5:36 AM EST 09/11/2020 6:02 AM EST Narrative Resulting Agency Comment Spec In Lab Carol Reyna MD HEMATOLOGY ORDERABLES [facility] [place] [address] * (ABNORMAL) Hemogram (09/11/2020 5:36 AM EST) White Blood Cell 7.7 4.0 - 9.5 x10(3)/mc L [facility] Red Blood Cell 3.95(L) 4.00 - 5.21 x10(6)/mc L [facility] Hemoglobin 8.4(L) 11.7 - 15.5 gm/dL [facility] Hematocrit 27.2(L) 35.7 - 45.8 % [facility] Mean Cell Volume 68.9(L) 82.6 - 94.4 fL [facility] Mean Cell Hemoglobin 21.3(L) 27.1 - 32.0 pg [facility] Mean Cell Hemoglobin Concentration 30.9(L) 31.7 - 35.0 gm/dL [facility] Platelet 290 145 - 357 x10(3)/mc L [facility] RDW Standard Deviation 48.3(H) 37.0 - 46.0 fL [facility] RDW coefficient of variation 19.8(H) 11.5 - 14.1 % [facility] Mean Platelet Volume 9.9 7.6 - 12.9 fL [facility] NRBC% auto 0.5 % [facility] NRBC Absolute 0.040(H) 0.000 - 0.000 x10(3)/mc L [facility] Blood specimen (specimen) 09/11/2020 5:36 AM EST 09/11/2020 6:02 AM EST Narrative Resulting Agency Comment Spec In Lab Carol Reyna MD HEMATOLOGY ORDERABLES Performing Organization Address City/[facility]/ZIP Co de Phone Number [facility] [place] [address] * Magnesium (09/11/2020 5:36 AM EST) [facility] Magnesium 0.82 0.69 - 1.07 mmol/L [facility] Blood specimen (specimen) 09/11/2020 5:36 AM EST 09/11/2020 6:02 AM EST Narrative Resulting Agency Comment Spec In Lab Amarilys Cerna MD CHEMISTRY ORDERABLES Performing Organization Address City/[facility]/ZIP Co de Phone Number [facility] [place] [address] * (ABNORMAL) Hepatic Function Panel (09/11/2020 5:36 AM EST) [facility] Protein, Total 6.8 6.1 - 8.0 gm/dL [facility] Albumin 4.4 3.2 - 5.2 gm/dL [facility] Aspartate Aminotransferase 16 0 - 30 unit/L [facility] Alanine Aminotransferase 16 0 - 30 unit/L [facility] Alkaline Phosphatase 123(H) 35 - 105 unit/L [facility] Bilirubin, Total 2.6(H) 0.2 - 1.3 mg/dL [facility] Comment:result rechecked-[place] Bilirubin, Direct 0.2 0.0 - 0.3 mg/dL [facility] Blood specimen (specimen) 09/11/2020 5:36 AM EST 09/11/2020 6:02 AM EST Narrative Resulting Agency Comment Spec In Lab Amarilys Cerna MD CHEMISTRY ORDERABLES Performing Organization Address City/State/[facility] Co de Phone Number [facility] [place] [address] * (ABNORMAL) BMP w/fasting Glucose (09/11/2020 5:36 AM EST) Glucose Fasting 195(H) 65 - 99 mg/dL [facility] Comment: ?Fasting* Glucose Interpretive [...] of Diabetes Mellitus, Position Statement from the [place] [employer]. ??Diabetes Care, Volume 33, Supplement 1, Aug 2009 Blood Urea Nitrogen 13 8 - 18 mg/dL [facility] Creatinine 0.90 0.70 - 1.20 mg/dL [facility] Sodium 140 135 - 145 mmol/L [facility] Potassium 3.2(L) 3.5 - 5.0 mmol/L [facility] Comment: Please note: ??Patients with WBC >100,000 may have falsely elevated Potassium levels. ??For accurate Potassium quantification in these patients send serum separator tube (gold top) for subsequent determinations. ??Contact the Clinical Chemistry Laboratory if there are any questions. Chloride 101 98 - 107 mmol/L [facility] Carbon Dioxide 27 22 - 31 mmol/L [facility] Anion Gap 12 5 - 15 mmol/L [facility] Calcium 9.1 8.5 - 10.5 mg/dL [facility] Est Glomerular Filtration Rate 60 >=60 mL/min/1. 73 m?? [place] In Lab Amarilys Cerna MD CHEMISTRY ORDERABLES [facility] [place] [address] * (ABNORMAL) APTT (09/11/2020 5:36 AM EST) Partial Thromboplastin Time 24(L) 25 - 37 sec [facility] Comment: The PTT is NOT appropriate for heparin monitoring. Use the Anti-Xa level for heparin monitoring (HEP UFH) or LMWH monitoring (HEP LMW). A PTT less than 37 seconds generally indicates adequate hemostasis. Blood specimen (specimen) 09/11/2020 5:36 AM EST 09/11/2020 6:02 AM EST Narrative Resulting Agency Comment Spec In Lab Amarilys Cerna MD HEMATOLOGY ORDERABLE S Performing Organization Address [facility] de Phone Number [facility] [place] [address] * Prothrombin Time (09/11/2020 5:36 AM EST) Prothrombin Time 12.5 9.4 - 12.5 sec [facility] International Normalization Ratio 1.1 [facility] [...] MD HEMATOLOGY ORDERABLE S Performing Organization Address [facility] de Phone Number [facility] [place] [address] * Smear Review Report (09/11/2020 5:30 AM EST) Smear Review Report [id number] ? Location: [facility]; C434; B The signing pathologist has (i) examined the relevant preparation(s) for the specimen(s) and (ii) rendered or confirmed the diagnosis(es). . ? Smear Review DIAGNOSIS PERIPHERAL BLOOD, SMEAR: Moderate hypochromic microcytic anemia (see discussion) Electronically signed by: ??Raymundo Peña MD Verified: ??09/11/2020 ?Hematopathologist Performed at: ??-[facility] Dept. of Pathology, [place], [place] DISCUSSION This blood film is requested [...] for severe s/p BAV, ASCVD, and pAF. [facility] 09/11/2020 5:30 AM EST Carol Reyna MD HEMATOLOGY ORDERABLES [facility] [place] [address] * (ABNORMAL) POCT Glucose (09/11/2020 5:07 AM EST) Glucose, POC 210(H) 65 - 199 mg/dL [facility] Comment: Supplemental ranges: <140 mg/dL before meals <180 mg/dL all other times of the day Blood specimen (specimen) 09/11/2020 5:07 AM EST 09/11/2020 5:07 AM EST Amarilys Cerna MD POINT OF CARE TEST O RDERABLES [facility] [place] [address] * Transfuse RBC (09/11/2020 4:45 AM EST) Amarilys Cerna MD NURSING TREATMENT OR DERABLES - BLOOD ADMIN * Transfuse RBC (09/11/2020 12:04 AM EST) Eamon Moser MD NURSING TREATMENT ORDERABLES - BLOOD ADMIN * (ABNORMAL) POCT Glucose (09/10/2020 10:45 PM EST) [facility] Glucose, POC 225(H) 65 - 199 mg/dL [facility] Comment: Supplemental ranges: <140 mg/dL before meals <180 mg/dL all other times of the day Blood specimen (specimen) 09/10/2020 10:45 PM EST 09/10/2020 10:45 PM EST Amarilys Cerna MD POINT OF CARE TEST O RDROBIN Performing Organization Address City/[facility]/ZIP Co de Phone Number [facility] [place] [address] * Prepare RBC (09/10/2020 10:40 PM EST) Pathologist [facility] Dispensed? Yes [facility] Blood specimen (specimen) 09/10/2020 10:40 PM EST 09/10/2020 10:46 PM EST Narrative Resulting Agency Comment Spec In Lab Amarilys Cerna MD BLOOD BANK PRODUCT O RDERABLES Performing Organization Address City/[facility]/ZIP Co de Phone Number [facility] [place] [address] * COVID-19 PCR (09/10/2020 9:44 PM EST) Pathologist [facility] SARS-CoV-2 RNA (Rapid) Not Detected Not Detected [place] [...] using the Simplexa COVID-19 Direct Assay by [employer] as authorized by the FDA issued Emergency [...] Department of Pathology and Laboratory Medicine at [facility], certified under the [...] fact sheets at the following FDA website: https://www.fda.gov/medical-devices/nbkvxfkqwhk-mtqgize-3992-aqdll-00-fbpxzegmj- use-a rfhpxvuhkebew-jeoqrlw-jdyuxyh/trybn-gcnkbwhwjbh-fcwd SARS-CoV-2 Source RAG WILLOW OPERATOR Swab MA RY [facility] Nasopharyngeal swab (specimen) 09/10/2020 9:44 PM EST 09/10/2020 10:03 PM EST Comment:Symptoms->Surveillan ce Narrative Resulting Agency Comment Spec In Lab Eamon Moser MD MICROBIOLOGY - GE NERAL ORDERABLES Performing Organization Address [facility] de Phone Number [facility] [place] [address] * Prepare RBC (09/10/2020 7:40 PM EST) Dispensed? Yes [facility] Blood specimen (specimen) 09/10/2020 7:40 PM EST 09/10/2020 7:40 PM EST Eamon Moser MD BLOOD BANK PRODUC T ORDERABLES Performing Organization Address [facility] de Phone Number [facility] [place] [address] * Differential, Automated (09/10/2020 7:25 PM EST) Neutrophil % 63.6 % [facility] Neutrophil Absolute 4.04 1.70 - 6.10 x10(3)/[facility] Lymph % 24.1 % [facility] Lymphocytes Abs 1.5 0.9 - 3.2 x10(3)/[facility] Monocyte % 8.8 % [facility] Monocyte Abs 0.6 0.3 - 0.9 x10(3)/[facility] Eos % 2.4 % [facility] Eosinophils Abs 0.2 0.0 - 0.4 x10(3)/[facility] Basophil % 0.8 % [facility] Baso Absolute 0.0 0.0 - 0.1 x10(3)/[facility] Immature Gran % 0.30 % [facility] Comment: Immature granulocytes(IG's)percentage and absolute count will include metamyelocytes, myelocytes, and promyelocytes. Blood smears from CBCs yielding IG's will be scanned manually for concordance. If this scan disagrees with the automated IG or if promyelocytes are noted, a manual differential will be performed. Immature Gran Absolute 0.02 0.00 - 0.04 x10(3)/mcL [facility] Blood specimen (specimen) 09/10/2020 7:25 PM EST 09/10/2020 7:36 PM EST Narrative Resulting Agency Comment Spec In Lab Osito Calabrese Jr., MD HEMATOLOGY ORDERA BLES [facility] [place] [address] * (ABNORMAL) Hemogram (09/10/2020 7:25 PM EST) White Blood Cell 6.4 4.0 - 9.5 x10(3)/mc L [facility] Red Blood Cell 2.75(L) 4.00 - 5.21 x10(6)/mc L [facility] Hemoglobin 5.2(Criti ciera) 11.7 - 15.5 gm/dL [facility] Comment: This result has been called to ION SALAZAR by JOB GAYTAN on 09 10 2020 at 2030, and has been read back. Hematocrit 18.2(L) 35.7 - 45.8 % [facility] Mean Cell Volume 66.2(L) 82.6 - 94.4 fL [facility] Mean Cell Hemoglobin 18.9(L) 27.1 - 32.0 pg [facility] Mean Cell Hemoglobin Concentration 28.6(L) 31.7 - 35.0 gm/dL [facility] Platelet 264 145 - 357 x10(3)/mc L [facility] RDW Standard Deviation 41.0 37.0 - 46.0 fL [facility] RDW coefficient of variation 17.3(H) 11.5 - 14.1 % [facility] Mean Platelet Volume 10.1 7.6 - 12.9 fL [facility] NRBC% auto 0.5 % [facility] NRBC Absolute 0.030(H) 0.000 - 0.000 x10(3)/mc L [facility] Blood specimen (specimen) 09/10/2020 7:25 PM EST 09/10/2020 7:36 PM EST Narrative Resulting Agency Comment Spec In Lab Osito Calabrese Jr., MD HEMATOLOGY ORDERA BLES Performing Organization Address [facility] Co de Phone Number [facility] [place] [address] * (ABNORMAL) APTT (09/10/2020 7:25 PM EST) Partial Thromboplastin Time 24(L) 25 - 37 sec [facility] Comment: The PTT is NOT appropriate for heparin monitoring. Use the Anti-Xa level for heparin monitoring (HEP UFH) or LMWH monitoring (HEP LMW). A PTT less than 37 seconds generally indicates adequate hemostasis. Blood specimen (specimen) 09/10/2020 7:25 PM EST 09/10/2020 7:36 PM EST Narrative Resulting Agency Comment Spec In Lab Eamon Moser MD HEMATOLOGY ORDERA BLES Performing Organization Address [facility] Co de Phone Number [facility] [place] [address] * (ABNORMAL) Prothrombin Time (09/10/2020 7:25 PM EST) Prothrombin Time 13.8(H) 9.4 - 12.5 sec [place] [...] MD HEMATOLOGY ORDERA BLES Performing Organization Address City/[facility] Co de Phone Number [facility] [place] [address] * ABORH Recheck Status (09/10/2020 6:15 PM EST) ABORH Type Recheck Completed [facility] Blood specimen (specimen) 09/10/2020 6:15 PM EST 09/10/2020 6:37 PM EST Narrative Resulting Agency Comment Spec In Lab Osito Calabrese Jr., MD BLOOD BANK LAB OR DERABLES Performing Organization Address [facility] Co de Phone Number [facility] [place] [address] * Antibody screen (09/10/2020 6:15 PM EST) Ab Screen Interp Negative [facility] Expires at 2359 on: 09/13/2020 [facility] Blood specimen (specimen) 09/10/2020 6:15 PM EST 09/10/2020 6:37 PM EST Narrative Resulting Agency Comment Spec In Lab Osito Calabrese Jr., MD BLOOD BANK LAB OR DERABLES Performing Organization Address City/[facility] Co de Phone Number [facility] [place] [address] * ABO/Rh Typing (09/10/2020 6:15 PM EST) ABORH Type O Pos [facility] Blood specimen (specimen) 09/10/2020 6:15 PM EST 09/10/2020 6:37 PM EST Narrative Resulting Agency Comment Spec In Lab Osito Calabrese Jr., MD BLOOD BANK LAB OR DERABLES [facility] [address] * SCAN DOC: LAB (09/10/2020 12:00 AM [...] Intravenous, EVERY 30 MIN PRN, Starting on 1/16/21 at 0402, Until 09/18/20 at 1608, For [...] LYLA) 0821 (Given - Provider: Ren Philippe, RN) clopidogreL (Plavix) tablet 75 mg 75 [...] RN)2055 (Given - Provider: Juan Ballesteros RN) 08 (Given - Provider: Ashley Santacruz RN)2022 (Given - Provider: Skyla Zuniga RN) 08 (Given - Provider: Ren Philippe, LYLA) insulin glargine (Lantus) (100 unit/mL) subcutaneous injection vial 10 Units 10 Units, Subcutaneous, DAILY, First dose on Sun09/11/20 at 0900, Until Discontinued, Routine 0844 (Given - Provider: Thanh Orlando RN) 0807 (Given - Provider: Ashley Santacruz, LYLA) 08 (Given - Provider: Ren Philippe [...] Not Removed (add comment) - Provider: Juan M Favian, RN - Comment: not applied) 2100 (Patch [...] Discontinued, Routine 0820 (Given - Provider: Ren Philippe, LYLA) magnesium hydroxide (Milk of Magnesia) (240 mg/mL) [...] RN)2055 (Given - Provider: Juan Ballesteros RN) 08 (Given - Provider: Ashley Santacruz, LYLA)2022 (Given [...] Kerr RN) 1649 (Given - Provider: Ashley Santacruz, LYLA) senna-docusate [...] refused) 0215 (Not Given - Provider: Skyla uZniga RN - Reason: Patient/family refused)1015 (Due) PRN [...] RN) 0322 (Given - Provider: Juan Ballesteros, RN)1121 (Given - Provider: Ashley Santacruz RN) [...] Intravenous, EVERY 2 HOURS PRN, Starting on 09/17/20 at 0637, Until 09/18/20 at 1608, High [...] documented as of this encounter Care Teams Capital Equipment Specialist Relationship Specialty Start Date End Date Reshma Baig MD [address] [place] [address] PCP - General Family Medicine 11/08/18 06/23/21 documented as of this encounter
--- OUTSIDE RECORDS SUMMARY | 2024-04-28 15:24 | XMS_ITS | Encounter Summary ---
Author Organization [facility] [place] [address] Care Team Providers Care Mend Worker Name Role Phone Reshma Baig MD Primary Care Provider [phone] Encounter Details Date Type Department Care Team (Late st Contact Info) Description 07/02/2020 Telephone [place] [address] Lisa Strickland RN Social History Tobacco Use [...] stool is less loose. Stool studies at [facility] are pending. Her back pain persists and [...] on filedocumented in this encounter Care Teams Mend Worker Relationship Specialty Start Date End Date Reshma Baig MD [address] [place] [address] PCP - General Family Medicine 11/08/18 06/23/21 documented as of this encounter
--- OUTSIDE RECORDS SUMMARY | 2024-04-28 15:24 | XMS_ITS | Encounter Summary ---
Author Organization [facility] Address [facility] [place] [address] Care Team Providers Care Twenty One Dealer Name Role Phone Reshma Baig MD Primary Care Provider [phone] Encounter Details Date Type Department Care Team (Late st Contact Info) Description 07/29/2020 Telephone [place] [address] Hong Rosenthal MD [facility] [place] [address] Social History Tobacco Use Types Packs/Day Years [...] status documented in this encounter Care Teams Twenty One Dealer Relationship Specialty Start Date End Date Reshma Baig MD [address] [place] [address] PCP - General Family Medicine 11/08/18 06/23/21 documented as of this encounter
--- OUTSIDE RECORDS SUMMARY | 2024-04-28 15:25 | XMS_ITS | Encounter Summary ---
Author Organization [facility] [place] [address] Care Team Providers Care Bait Tier Name Role Phone Reshma Baig MD Primary Care Provider [phone] Encounter Details Date Type Department Care Team (Late st Contact Info) Description 06/10/2020 Telephone [place] [address] Tg Jimenez, RN Social History Tobacco Use [...] female with a Percutaneous cholecystostomy tube 10.2 egyptian catheter with a pig tail formed in [...] gravity drainage. ?? She was transferred [place] [facility] with acute gallbladder symptoms back in March [...] out of the bottle. Shannan lives near [place]. I have recommend Shannan call her local EMS and seek care at her local facility. Alejandra will call Shannan to let her know- she said she believes that Shannan will be relieved as itwas considered but Shannan did not want to do anything until Alejandra had contacted [facility]. Shannan was seen by Dr. Rosenthal on [...] outpatient cardiology follow-up with Dr. Galindo in [facility] on 05/18 but she reports she has not seen a sales center associate. She has an appointment in our system [...] Hong Rosenthal MD. 06/03/2020 1:57 PM office [phone] fax [phone] ??3:37 PM She called in with pain [...] on filedocumented in this encounter Care Teams Bait Tier Relationship Specialty Start Date End Date Reshma Baig MD [address] [place] [address] PCP - General Family Medicine 11/08/18 06/23/21 documented as of this encounter
--- OUTSIDE RECORDS SUMMARY | 2024-04-28 15:25 | XMS_ITS | Encounter Summary ---
Author Organization [facility] Address [facility] [place] [address] Care Team Providers Care Band Sawing Machine Operator Name Role Phone Reshma Baig MD Primary Care Provider [phone] Reason for Visit * Auth/Cert Specialty Diagnoses [...] Expiration Date Visits Re quested Visits Authorized [id number] 1 1 Encounter Details Date Type Department Care Team (Latest Contact Info) Description 06/22/2020 10:05 PM EDT - 06/22/2020 11:59 PM EDT Hospital [place] [address] COVID-19 ruled out Discharge Disposition: Home Social [...] each 0 12/02/2013 [facility] Use twice daily or as needed. 200 [...] EDT) SARS-CoV-2 RNA Not Detected Not Detected [facility] Comment: This result should be [...] diagnosis of COVID-19 is performed using the [employer] RealTime SARS-CoV-2 Assay as authorized by the FDA Emergency Use Authorization (EUA). This EUA assay is intended for In-vitro Diagnostic (IVD) use with respiratory specimens such as nasopharyngeal swabs collected from individuals during the acute phase of infection. This assay is performed based on the instructions for use provided by [employer] and additional guidance provided by CDC and FDA. Testing is performed in the [facility] within the Department of Pathology and Laboratory Medicine at [facility], certified under the Clinical Laboratory Improvement [...] fact sheets at the following FDA website: https://www.fda.gov/medical-devices/tnzsxfjtqhn-xfwbznh-6401-mcmxp-09-dsphglomx- use-a olggdmwdoqfvf-tdnkljn-cglcvtg/urtxe-obhsuigpjmi-lgxw SARS-CoV-2 RNA Source Nasal [facility] Specimen from nose (specimen) Other / Unknown 06/22/2020 9:40 AM EDT 06/22/2020 11:42 PM EDT Narrative Resulting Agency Comment Spec In Lab Sera Valentin MD MOLECULAR ORDERAB LES [facility] [place] [address] documented in this encounter Visit Diagnoses Diagnosis COVID-19 ruled out documented in this encounter Care Teams Band Sawing Machine Operator Relationship Specialty Start Date End Date Reshma Baig MD [address] [place] [address] PCP - General Family Medicine 11/08/18 06/23/21 documented as of this encounter
--- OUTSIDE RECORDS SUMMARY | 2024-04-28 15:25 | XMS_ITS | Encounter Summary ---
Author Organization [facility] [place] [address] Care Team Providers Care Facility Examiner Name Role Phone Reshma Baig MD Primary Care Provider [phone] Reason for Referral * Diagnostic Test (Routine) - Closed Specialty Diagnoses / Procedures Referred By Contac t Referred To Contact Radiology Diagnoses Cholecystitis Procedures IR Biliary Tube Check/Change/Remove Denilson Vargas MD [facility] [place] [address] [facility] [place] [address] Referral ID Status Reason Start Date Expiration Date V isits Requested Visits Authorized [id number] Closed Specialty Service Requested 05/19/2020 11/16/2021 1 1 Reason for Visit * Diagnostic Test (Routine) - Closed Specialty Diagnoses / Procedures Referred By Contac t Referred To Contact Radiology Diagnoses Cholecystitis Procedures IR Biliary Tube Check/Change/Remove Denilson Vargas MD [facility] [place] [address] [facility] [place] [address] Referral ID Status Reason Start Date Expiration Date V isits Requested Visits Authorized [id number] Closed Specialty Service Requested 05/19/2020 11/16/2021 1 1 Encounter Details Date Type Department Care Team (Latest Contact Info) Description 06/03/2020 8:15 AM EDT - 06/03/2020 11:59 PM EDT Hospital [place] [address] Jos Collins, [facility] [place] [address] Cholecystitis Discharge Disposition: Home Social History Tobacco [...] Orta RN - 06/03/2020 9:33 AM EDT [facility] Vascular and Interventional Radiology TUBE CARE & [...] is during regular office hours, please call [phone]. If it is after regular office hours, or on weekends or holidays, please call [phone] and ask to speak to the Open Tenter Operator installation & maintenance executive for Interventional Radiology. You have received medication [...] of : 1940 AGE: 79 y.o. Address: [address] [place] [address] (home) Mobile: Telephone Information: Referring Provider: Michael Baron REASON FOR VISIT: Order Questions Answers Where will study be performed? [facility] Radiology [120] Is the patient on [...] DRAINAGE 04/28/2020 CT Guided Drain Peritoneal 04/28/2020 [facility] RAD CAT SCAN ??? HYSTERECTOMY, VAGINAL ??? IR CHOLECYSTOSTOMY TUBE PLACEMENT 04/22/2020 IR Cholecystostomy Tube Placement 04/22/2020 Jos Collins, DO [facility] INTERVENTIONL RAD ??? IR DRAIN CHECK/CHANGE/REMOVE 05/19/2020 IR Drain Check/Change/Remove 05/19/2020 Jos Collins, DO [facility] INTERVENTIONL RAD ??? PRO UPPER GI ENDOSCOPY, DIAGNOSTIC N/A 05/03/2020 EGD, UPPER GI ENDOSCOPY performed by Brigitte Graf MD at [facility] ENDOSCOPY Date/Procedure Meds given/comments 04/22/20 Anna [...] Questions Answers Where will study be performed? [facility] Radiology [120] Is the patient on [...] cholelithiasis. Patient has same-day appointment with Dr. Cooros. Past Medical/Surgical History: Patient Active Problem List [...] DRAINAGE 04/28/2020 CT Guided Drain Peritoneal 04/28/2020 [facility] RAD CAT SCAN ??? HYSTERECTOMY, VAGINAL ??? IR CHOLECYSTOSTOMY TUBE PLACEMENT 04/22/2020 IR Cholecystostomy Tube Placement 04/22/2020 Jos Collins, DO [facility] INTERVENTIONL RAD ??? IR DRAIN CHECK/CHANGE/REMOVE 05/19/2020 IR Drain Check/Change/Remove 05/19/2020 Jos Collins, DO [facility] INTERVENTIONL RAD ??? PRO UPPER GI ENDOSCOPY, DIAGNOSTIC N/A 05/03/2020 EGD, UPPER GI ENDOSCOPY performed by Brigitte Graf MD at [facility] ENDOSCOPY Medications: Current Outpatient Medications on [...] The procedure was performed under fluoroscopic guidance. ??Stock Selector fluoroscopic images were obtained. ??Contrast was injected [...] Nurse. Jos Collins DO IMG IR ORDERABLES * POCT Glucose (06/03/2020 8:34 AM EDT) Glucose, POC 137 65 - 199 mg/dL [facility] Comment: Supplemental ranges: <140 mg/dL before meals <180 mg/dL all other times of the day Blood specimen (specimen) 06/03/2020 8:34 AM EDT 06/03/2020 8:34 AM EDT Jos Collins DO POINT OF CARE TEST O RDERATOAN [facility] [place] [address] documented in this encounter Visit Diagnoses Diagnosis [...] EDT documented in this encounter Care Teams Facility Examiner Relationship Specialty Start Date End Date Reshma Baig MD [address] [place] [address] PCP - General Family Medicine 11/08/18 06/23/21 documented as of this encounter
--- OUTSIDE RECORDS SUMMARY | 2024-04-28 15:25 | XMS_ITS | Encounter Summary ---
[place] [address] Care Team Providers Care Db2 Dba Name Role Phone Reshma Baig MD Primary Care Provider [phone] Encounter Details Date Type Department Care Team (Late st Contact Info) Description 06/21/2020 [place] [address] Kia Bowers, RN Social History Tobacco Use [...] on filedocumented in this encounter Care Teams Db2 Dba Relationship Specialty Start Date End Date Reshma Baig MD [address] [place] [address] PCP - General Family Medicine 11/08/18 06/23/21 documented as of this encounter
--- OUTSIDE RECORDS SUMMARY | 2024-04-28 15:25 | XMS_ITS | Encounter Summary ---
Author Organization [facility] Address [facility] [place] [address] Care Team Providers Care Litigation Claim Representative Name Role Phone Reshma Baig MD Primary Care Provider [phone] Reason for Visit * Auth/Cert Specialty Diagnoses [...] Expiration Date Visits Re quested Visits Authorized [id number] 1 Encounter Details Date Type Department Care Team (Late st Contact Info) Description 06/24/2020 9:30 AM EDT - 06/24/2020 11:30 AM EDT Surgery [place] [address] Esau Valentin MD [facility] [place] [address] CARDIAC CATHETERIZATION Social History Tobacco Use Types [...] in this encounter Discharge Summaries * OsielInez, GOLDBEATER - 06/25/2020 1:37 PM EDT Discharge Summary Patient Name: Shannan Thomas Patient Age: 79 y.o. Language: Botswanan Race: White Ethnicity: Not nor Admit date: [...] Arnold MD Sarah Hansen, PA-C Bridget Meador, GOLDBEATER Cardiovascular Medicine [phone] Discharge Diagnoses (Hospital Problems) and Secondary Diagnoses [...] Comments: Valvuloplasty Balloon: 18mmx4.5cm True Dilitation Balloon, Lot#[id number]. 2nd Balloon 20mmx4.5cm True Dilitation Balloon Lot#[id number]. Ultrasound and fluoroscopy used to select vascular [...] of 8A-5PM please call the Cardiology Clinic [phone] to speak with a nurse. All other hours please call the Hospital Oil Heater Installer [phone] and ask to speak to the geospatial information scientist on-call. Return to work: One week Driving: No driving for 48 hours after cath Follow up Appointments: Doctor Where Phone # Date Time PCP Reshma Baig MD [address] [place] [address] Thursday, July 02, [address] Baig's DISPLAY TRIMMER 9:00 am (please arrive by 8:45 am) Family Court Counsellor-- Dr. Galindo [facility] Cardiology office [phone] Monday, July 13, 2020 10:40 am Home oxygen therapy: N/A Arrangements for VNA/home care: N/A Future Appointments and Orders Future Orders Complete By Expires Referral to Home Health - at DISCHARGE [[id number] CPT(R)] As directed Process Instructions: Scheduling Instructions: Comments: DOCUMENTATION FOR VNA SERVICES (INCLUDING THOSE PATIENTS WITH MEDICARE COVERAGE REQUIRING HOME VNA SERVICES AND/OR HOSPICE SERVICES) PATIENT'S LOCATION: [address] [address] (home) Cell: Telephone Information: Vice President Of Marketing's Name: Patient In discussion with the attending physician, it is certified that this patient is under their care and that they, or a Nurse Practitioner,Clinical Nurse specialist or Physician Automatic Furnace Operator who is working directly with them, had [...] previously in place. HOME HEALTH CARE AGENCY: [facility] PHONE: [phone] FAX: [phone] Start of care: 24 to 48 hours [...] Reshma Baig MD [address] / [facility] [address] All A agencies which cover the area of patient's residence have been reviewed, either verbally janay writing, and patient/family have chosen the home health care agency noted Questions: Agency name and contact information: [facility] Patient location post discharge: home What services are requested: Registered Nurse Start date: Responsible MD post discharge contact info: PCP Discharge References/Attachments None Inez Cartagena, KAMI, NURSING PROJECT COORDINATOR-BC, GOLDBEATER [facility] Cardiovascular Medicine Associated attestation - Maria L Salazar MD - 06/25/2020 3:23 PM EDT Cardiology Attending Discharge Addendum I was the assigned attending rent control office manager for this clinical encounter. For the purposes [...] contact information: Maria L Cortes MD MPH [address] [address] (office); Pager #[phone] Email: [email or web address] documented in this encounter Discharge Instructions * Discharge Instructions* Inez Cartagena APRN - 06/25/2020 1:34 PM EDT Call your doctor if: Chest pain, dyspnea, pain or swelling in legs occurs If you have non-emergent questions, prior to your follow-up visit call: Sunday-Sunday between the hours of 8A-5PM please call the Cardiology Clinic [phone] to speak with a nurse. All other hours please call the Hospital Oil Heater Installer [phone] and ask to speak to the geospatial information scientist on-call. Return to work: One week Driving: No driving for 48 hours after cath Follow up Appointments: Doctor Where Phone # Date Time PCP Reshma Baig MD [address] [place] [id number] Thursday, July 02, [address] Baig's DISPLAY TRIMMER 9:00 am (please arrive by 8:45 am) Family Court Counsellor-- Dr. Galindo [facility] Cardiology office [phone] Monday, July 13, 2020 10:40 am Home [...] 250.02. 1 each 0 12/02/2013 [facility] Use twice daily or as needed. 200 [...] RN - 06/25/2020 1:51 PM EDT The patient/phone representative has been provided a list of Home Health Agencies/DME vendors which servetheir preferred geographic area. A letter describing our affiliations was reviewed with them and they were educated about their right to choose where referrals are placed. Provided patient with [facility] Star Quality Rating for Home care hand out. Patient requests referral to [facility] PHONE: [phone] FAX: [phone] Expected date of discharge: 06/25/20. Referral routed to the Rn Urology for matching with agency/vendor and to provide any required information. 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 Aortic valve stenosis Added automatically from request for surgery [id number] ??? Severe aortic stenosis Resolved Hospital Problems [...] 6. No pericardial effusion. Prior Cardiac Studies: [facility] 04/21/20 Conclusions: * Two vessel coronary [...] Maria L Chawla MD. Inez Cartagena, MSN, [facility]-, GOLDBEATER 06/25/2020 Pager [phone] Associated attestation - Maria L Salazar MD - 06/25/2020 3:24 PM EDT I was the assigned attending rent control office manager for this clinical encounter. 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 Aortic valve stenosis Added automatically from request for surgery [id number] ??? Severe aortic stenosis Resolved Hospital Problems [...] for pacemaker, manual hold Prior Cardiac Studies: [facility] 04/21/20 Conclusions: * Two vessel coronary [...] Esau Valentin MD;Benoit Ravi* TR Negrete-C Pager #[phone] 06/24/2020 Associated attestation - Benoit Schumacher MD [...] date: 06/24/2020 Attending Physician: Esau Valentin MD [facility] Interventional Cardiology Adult Pre-Procedure H&P Update: Mrs Shannan Thomas (Gladis) [id number] 1940 Chief Complaint: dyspnea, fatigue, severe aortic valve stenosis HPI: Shannan Thomas is a 79 y.o. female referred for cardiac catheterization by Dr Renae as inpatient provider for evaluation of aortic valve stenosis and consideration of aortic valvuloplasty. 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 (Only good for 90 days) Any patient receiving care at [facility] must abide by [place] law. The hierarchy for surrogate decision making [...] (i) The agent with financial power of county attorney or a conservator appointed in accordance [...] DC: None Home Address confirmed as: [address] [facility] [address] Social & Family Supports: All names listed below confirmed with patient as current and correct. Extended Emergency Contact Information Primary Emergency Contact: NATTY REDMAN Mobile Relation: Child Secondary Emergency Contact: ROSHAN ALDRIDGE [address] Mobile Relation: None Community Resources being provided currently: Outpatient/Agency/Support Group Needs: (none) Behavioral Health History: Current or Prior Mental Health History: none noted Other Pertinent/Service Specific Information: No Health/Prescription Coverage: Primary Insurance: [employer] [place] Payor: [place] [employer] [place] / Plan[place] / Product Type: *No Product type* / Secondary Insurance: MEDICARE Prescription Coverage: yes Preferred Pharmacy: [id number] - [place], [place] - [address] [place] [address] AT [address] [facility] [address] [facility] [address] [facility] [address] [facility] [place], [place] - [facility] [address] [facility] [place], [place] - [address] [facility] [address] [facility] [address] Primary Care Provider: Reshma Baig MD [phone] Patient/Caregiver Goals of Treatment: DC home Potential [...] of care planning. Chioma Vann, RN, MSN, accounts payable specialist Office of Care Management Pager: [phone] Work * Plan of Care - Wendie [...] Operative Note Patient Name: Shannan Thomas : [id number] MR#: [id number] Case Date: 06/24/2020 Surgeon: Surgeon(s) and Role: * Esau Valentin MD - Primary * Dago Merchant PA - Physician Automatic Furnace Operator Preoperative diagnosis: Aortic valve stenosis, etiology of [...] * POCT Glucose (06/25/2020 11:55 AM EDT) Pathologist [facility] Glucose, POC 177 65 - 199 mg/dL [facility] Comment: Supplemental ranges: <140 mg/dL before meals <180 mg/dL all other times of the day Blood specimen (specimen) 06/25/2020 11:55 AM EDT 06/25/2020 11:55 AM EDT Maria L Chawla MD POINT OF CAR E TEST ORDERABLES [facility] [place] [address] * ECHO LMTD W/O CONTRAST W LMTD SPEC DOPP COLOR DOPP (06/25/2020 10:56 AM EDT) Pathologist [facility] EF 72 HEARTLAB SYSTEM Anatomical Region Laterality Modality Other 06/25/2020 Narrative 06/25/2020 11:17 AM EDT Procedure: ?Transthoracic Echocardiogram Patient: ?WILLIAM SHANNAN A ? (Age): 1940(79y) Med Rec#: ? [id number] ?Sex: ?F ? Site Loc: ? [facility] ?Ht / Wt: ??158(cm)/79(kg) Pt. Loc: ?Adult Floor ? BSA: ?1.81 Study Date: ?? 06/25/2020 ?Pt. Type: Inpatient Tape: ? Referring: ESAU VALENTIN J Reading: Alvin Ramos ([id number]) Requirements Engineer: Alvin Herrera, [facility] Diagnosis: *Nonrheumatic aortic (valve) stenosis (I35.0) *Limited [...] Vmax ?1.91 ? m/sec ? MV deceleration [id number] ?msec ? MV A-wave Vmax ?1.38 ? [...] ? Mid-Inferior ?Normal ? Mid-Inferoseptal ?Normal ? [place]-Septal ? Normal ? [place]-Anterior ? Normal ? [place]-Lateral ?Normal ? [place]-Inferior ? Normal ? [place]-Tip ?Normal ? This report has been electronically signed by: Alvin Ramos MD ? 06/25/2020 11:16:39 Images reviewed and interpretation verified [facility] Cardiac Ultrasound Laboratory Procedure Note Alvin Ramos MD - 06/25/2020 Procedure: Transthoracic Echocardiogram Patient: WILLIAM Francis (Age): 1940(79y) Med Rec#: [id number] Sex: F Site Loc: [facility] Ht / Wt: 158(cm)/79(kg) Pt. Loc: Adult Floor BSA: 1.81 Study Date: 06/25/2020 Pt. Type: Inpatient Tape: Referring: ESAU VALENTIN J Reading: Alvin Ramos ([id number]) Requirements Engineer: Alvin Herrera [facility] Diagnosis: *Nonrheumatic aortic (valve) stenosis (I35.0) *Limited [...] MV E-wave Vmax 1.91 m/sec MV deceleration [id number] msec MV A-wave Vmax 1.38 m/sec MV [...] Normal Mid-Posterolateral Normal Mid-Inferior Normal Mid-Inferoseptal Normal [place]-Septal Normal [place]-Anterior Normal [place]-Lateral Normal [place]-Inferior Normal [place]-Tip Normal This report has been electronically signed by: Alvin Ramos MD 06/25/2020 11:16:39 Images reviewed and interpretation verified [facility] Cardiac Ultrasound Laboratory Benoit Schumacher MD ECHO ORDERABLES * POCT Glucose (06/25/2020 7:39 AM EDT) Pathologist [facility] Glucose, POC 141 65 - 199 mg/dL [facility] Comment: Supplemental ranges: <140 mg/dL before meals <180 mg/dL all other times of the day Blood specimen (specimen) 06/25/2020 7:39 AM EDT 06/25/2020 7:39 AM EDT Maria L Chawla MD POINT OF CAR E TEST ORDERABLES [facility] [place] [address] * EKG 12 Lead (06/25/2020 7:16 AM EDT) Ventricular rate 59 BPM MUSE SYSTEM Atrial Rate 59 BPM MUSE SYSTEM P-R Interval 138 ms MUSE SYSTEM QRS Duration 126 ms MUSE SYSTEM Q-T Interval 482 ms MUSE SYSTEM QTC Calculated (Bezet) 477 ms MUSE SYSTEM Calculated P Colton 16 degrees MUSE SYSTEM Calculated R Colton 64 degrees MUSE SYSTEM Calculated T Colton -34 degrees MUSE SYSTEM INTERPRETATION Sinus bradycardia Right bundle branch block T wave abnormality, consider inferior ischemia Abnormal ECG When compared with ECG of 24-JUN-2020 14:28, Right bundle branch block has replaced Non-specific intra-ventricular conduction block I personally reviewed the tracing and edited the fellows interpretation Confirmed by fellow Alvin Otoole ([id number]) on 06/25/2020 1:49:17 PM Confirmed by MD Castillo Michael ([id number]) on 06/25/2020 5:18:05 PM MUSE SYSTEM 06/25/2020 7:16 AM EDT 06/25/2020 5:18 PM EDT Benoit Schumacher MD ECG ORDERABLES MUSE SYSTEM * Differential, Automated (06/25/2020 5:13 AM EDT) Neutrophil % 57.5 % [facility] Neutrophil Absolute 3.28 1.70 - 6.10 x10(3)/[facility] Lymph % 25.4 % [facility] Lymphocytes Abs 1.4 0.9 - 3.2 x10(3)/[facility]OR[facility] Monocyte % 10.0 % [facility] Monocyte Abs 0.6 0.3 - 0.9 x10(3)/[facility]OR[facility] Eos % 5.6 % [facility] Eosinophils Abs 0.3 0.0 - 0.4 x10(3)/[facility] Basophil % 1.1 % [facility] Baso Absolute 0.1 0.0 - 0.1 x10(3)/[facility]ORATORY Immature Gran % 0.40 % [facility] Comment: Immature granulocytes(IG's)percentage and absolute count will include metamyelocytes, myelocytes, and promyelocytes. Blood smears from CBCs yielding IG's will be scanned manually for concordance. If this scan disagrees with the automated IG or if promyelocytes are noted, a manual differential will be performed. Immature Gran Absolute 0.02 0.00 - 0.04 x10(3)/mcL [facility] Blood specimen (specimen) 06/25/2020 5:13 AM EDT 06/25/2020 5:32 AM EDT Narrative Resulting Agency Comment Spec In Lab Candice ARMANDO HEMATOLOGY ORDERABL ES Performing Organization Address City/State/[facility] Co de Phone Number [facility] [place] [address] * (ABNORMAL) Hemogram (06/25/2020 5:13 AM EDT) White Blood Cell 5.7 4.0 - 9.5 x10(3)/[facility] Red Blood Cell 3.18(L) 4.00 - 5.21 x10(6)/[facility] Hemoglobin 7.8(L) 11.7 - 15.5 gm/dL [facility] Hematocrit 27.1(L) 35.7 - 45.8 % [facility] Mean Cell Volume 85.2 82.6 - 94.[address] [facility] Mean Cell Hemoglobin 24.5(L) 27.1 - 32.[address] [facility] Mean Cell Hemoglobin Concentration 28.8(L) 31.7 - 35.0 gm/dL [facility] Platelet 240 145 - 357 x10(3)/[facility] RDW Standard Deviation 43.9 37.0 - 46.0 [facility] RDW coefficient of variation 14.1 11.5 - 14.1 % [facility] Mean Platelet Volume 9.9 7.6 - 12.9 [facility]ORY NRBC% auto 0.0 % [facility] NRBC Absolute 0.000 0.000 - 0.000 x10(3)/[facility] Blood specimen (specimen) 06/25/2020 5:13 AM EDT 06/25/2020 5:32 AM EDT Narrative Resulting Agency Comment Spec In Lab Candice ARMANDO HEMATOLOGY ORDERABL ES [facility] [place] [address] * (ABNORMAL) CMP w/fasting Glucose (06/25/2020 5:13 AM EDT) Glucose Fasting 150(H) 65 - 99 mg/dL [facility] Comment: ?Fasting* Glucose Interpretive Criteria [...] of Diabetes Mellitus, Position Statement from the [place] [employer]. ??Diabetes Care, Volume 33, Supplement 1, Aug 2009 Blood Urea Nitrogen 10 8 - 18 mg/dL [facility] Creatinine 0.73 0.70 - 1.20 mg/dL [facility] Sodium 139 135 - 145 mmol/L [facility] Potassium 3.6 3.5 - 5.0 mmol/L [facility] Comment: Please note: ??Patients with WBC >100,000 may have falsely elevated Potassium levels. ??For accurate Potassium quantification in these patients send serum separator tube (gold top) for subsequent determinations. ??Contact the Clinical Chemistry Laboratory if there are any questions. Chloride 108(H) 98 - 107 mmol/L [facility] Carbon Dioxide 23 22 - 31 mmol/L [facility] Anion Gap 8 5 - 15 mmol/L [facility] Calcium 8.4(L) 8.5 - 10.5 mg/dL [facility] Protein, Total 5.7(L) 6.1 - 8.0 gm/dL [facility] Albumin 3.4 3.2 - 5.2 gm/dL [facility] Aspartate Aminotransferase 15 0 - 30 unit/L [facility] Alanine Aminotransferase 12 0 - 30 unit/L [facility] Alkaline Phosphatase 86 35 - 105 unit/L [facility] Bilirubin, Total 0.9 0.2 - 1.3 mg/dL [facility] Est Glomerular Filtration Rate 78 >=60 mL/min/1. 73 m?? [facility] Comment: The eGFR was calculated using the CKD-EPI equation. As with all creatinine based estimates of kidney function, eGFR values calculated with the CKD-EPI equation are not accurate in patients with acute kidney failure, extremes of body mass or the acutely ill. [email or web address] eGFR 91 >=60 mL/min/1. 73 m?? [facility] Comment: The eGFR was calculated using the CKD-EPI equation. As with all creatinine based estimates of kidney function, eGFR values calculated with the CKD-EPI equation are not accurate in patients with acute kidney failure, extremes of body mass or the acutely ill. [email or web address] Blood specimen (specimen) 06/25/2020 5:13 AM EDT 06/25/2020 5:32 AM EDT Narrative Resulting Agency Comment Spec In Lab Benoit Schumacher MD CHEMISTRY ORDER JAMIE [facility] [place] [address] * Magnesium (06/25/2020 5:13 AM EDT) Magnesium 0.70 0.69 - 1.07 mmol/L [facility] Blood specimen (specimen) 06/25/2020 5:13 AM EDT 06/25/2020 5:32 AM EDT Narrative Resulting Agency Comment Spec In Lab Benoit Schumacher MD CHEMISTRY ORDER JAMIE Performing Organization Address [facility] Co de Phone Number [facility] [place] [address] * POCT Glucose (06/24/2020 9:03 PM EDT) Glucose, POC 197 65 - 199 mg/dL [facility] Comment: Supplemental ranges: <140 mg/dL before meals <180 mg/dL all other times of the day Blood specimen (specimen) 06/24/2020 9:03 PM EDT 06/24/2020 9:03 PM EDT Benoit Schumacher MD POINT OF CARE T EST ORDERABLES Performing Organization Address [facility] Co de Phone Number [facility] [place] [address] * POCT Glucose (06/24/2020 3:59 PM EDT) Glucose, POC 95 65 - 199 mg/dL [facility] Comment: Supplemental ranges: <140 mg/dL before meals <180 mg/dL all other times of the day Blood specimen (specimen) 06/24/2020 3:59 PM EDT 06/24/2020 3:59 PM EDT Esau Valentin MD POINT OF CARE MISTY T ORDERABLES Performing Organization Address [facility] Co de Phone Number [facility] [place] [address] * EKG 12 Lead (06/24/2020 2:28 PM EDT) Ventricular rate 78 BPM MUSE SYSTEM Atrial Rate 78 BPM MUSE SYSTEM P-R Interval 202 ms MUSE SYSTEM QRS Duration 134 ms MUSE SYSTEM Q-T Interval 470 ms MUSE SYSTEM QTC Calculated (Bezet) 535 ms MUSE SYSTEM Calculated P Colton 52 degrees MUSE SYSTEM Calculated R Colton 99 degrees MUSE SYSTEM Calculated T Colton -60 degrees MUSE SYSTEM INTERPRETATION Normal sinus [...] Modality Other Narrative 06/24/2020 2:49 PM EDT ?[facility] ? Cardiac Catheterization/Intervention Report ? Patient Name: WILLIAM, SHANNAN A. ? Procedure Date: 06/24/2020 ? A #: [id number] ? Primary Physician: Barbie, Esau J ? Case #: [id number] ? File Name: [id number] ? Catheterization Order Number: [id number] ? [facility] ? Final Report [place], [place] ? Patient Name: ? SHANNAN A. WILLIAM ? ID#: ?[id number] ? : ?1940 ? Procedure Date: ? June 24, 2020 ? Case #: ? [id number] ? Room: ? 6 ? Case Physician: ? Cat SherwoodD. ?Start: ?12:10 ? Admission: ??06/24/2020 ? Referring Physician: ??Reshma Baig M.D. ? Procedures: ?* Left Heart Catheterization ?* Aortic Valvuloplasty ?* Temporary Pacemaker Insertion In Coal Chemist ?* Transthoracic Echo During Cath ?* Vascular [...] Comments: ?Valvuloplasty Balloon: 18mmx4.5cm True Dilitation Balloon, Lot#[id number]. ?2nd Balloon 20mmx4.5cm True Dilitation Balloon ?Lot#[id number]. ?Ultrasound and fluoroscopy used to select vascular access location. See ?description of arteries under access site management. Visualization of ?front wall puncture and confirmation of wire entry above femoral ?bifurcation and below inferior epigastric. ?Percutaneous access with Preclose technique: one Perclose placed, ?followed by heparin bolus (weight based, 80-100 units/kg to maintain ACT ?greater than 250 seconds) followed by the V e-sheath (the sheath is 14 ?Fr for [...] ?heart catheterization, vascular ultrasound, temporary pacemaker in woven label designer ?and transthoracic echo . ? Esau Valentin, ? M.D. ? Electronically Signed by: Esau Valentin M.D. ? Report Finalized: 06/24/2020 ??14:42 ? Procedure Note Esau Valentin MD - 06/24/2020 [facility] Cardiac Catheterization/Intervention Report Patient Name: JOHANA THOMASOTHY Jaspreet Procedure Date: 06/24/2020 A #: [id number] Primary Physician: Esau Valentin Case #: [id number] File Name: [id number] Catheterization Order Number: [id number] [facility] FinalReport [place], [place] Patient Name: SHANNAN THOMAS ID#:[id number] :1940 Procedure Date: June 24, 2020 Case #: [id number] Room: 6 Case Physician: Esau Valentin M.D. Start: 12:10 Admission:06/24/2020 Referring Physician: Reshma Baig M.D. Procedures: * Left Heart Catheterization * Aortic Valvuloplasty * Temporary Pacemaker Insertion In Coal Chemist * Transthoracic Echo During Cath * Vascular [...] was designated as ASA Class IV. The [facility] clinicalfrailty scale is 5: Mildly [...] procedures. Comments: Valvuloplasty Balloon: 18mmx4.5cm True Dilitation Balloon,Lot#[id number]. 2nd Balloon 20mmx4.5cm True Dilitation Balloon Lot#[id number]. Ultrasound and fluoroscopy used to select vascular [...] * POCT Glucose (06/24/2020 12:53 PM EDT) [facility] Signature Glucose, POC 105 65 - 199 mg/dL [facility] Comment: Supplemental ranges: <140 mg/dL before meals <180 mg/dL all other times of the day Blood specimen (specimen) 06/24/2020 12:53 PM EDT 06/24/2020 12:53 PM EDT Esau Valentin MD POINT OF CARE MISTY T ORDERABLES Performing Organization Address City/[facility]/ZIP Co de Phone Number [facility] [place] [address] * POCT Glucose (06/24/2020 9:18 AM EDT) Glucose, POC 122 65 - 199 mg/dL [facility] Comment: Supplemental ranges: <140 mg/dL before meals <180 mg/dL all other times of the day Blood specimen (specimen) 06/24/2020 9:18 AM EDT 06/24/2020 9:18 AM EDT Esau Valentin MD POINT OF CARE MISTY T ORDERABLES Performing Organization Address [facility] de Phone Number [facility] [place] [address] * EKG 12 Lead (06/24/2020 9:15 AM EDT) Ventricular rate 64 BPM MUSE SYSTEM Atrial Rate 64 BPM MUSE SYSTEM P-R Interval 126 ms MUSE SYSTEM QRS Duration 126 ms MUSE SYSTEM Q-T Interval 472 ms MUSE SYSTEM QTC Calculated (Bezet) 486 ms MUSE SYSTEM Calculated P Colton 6 degrees MUSE SYSTEM Calculated R [place] 17 degrees MUSE SYSTEM Calculated T [place] -20 degrees MUSE SYSTEM INTERPRETATION Normal sinus rhythm Right bundle branch block Abnormal ECG When compared with ECG of 30-APR-2020 08:01, No significant change was found Confirmed by MD HUI, SABI ([id number]) on 06/24/2020 12:24:07 PM MUSE SYSTEM 06/24/2020 9:15 AM EDT 06/24/2020 12:24 PM EDT Esau Valentin MD ECG ORDERABLES Performing Organization Address City/[facility]/ZIP Co de Phone Number MUSE SYSTEM * Differential, Automated (06/24/2020 8:40 AM EDT) Neutrophil % 56.2 % [facility] Neutrophil Absolute 3.72 1.70 - 6.10 x10(3)/[facility] LAB[facility] Lymph % 28.4 % [facility] Lymphocytes Abs 1.9 0.9 - 3.2 x10(3)/[facility] LABOR[facility]ORY Monocyte % 10.1 % [facility] Monocyte Abs 0.7 0.3 - 0.9 x10(3)/[facility] LABORATORY Eos % 3.9 % [facility] [place] [place] Eosinophils Abs 0.3 0.0 - 0.4 x10(3)/[facility] Basophil % 1.1 % [facility] Baso Absolute 0.1 0.0 - 0.1 x10(3)/[facility] Immature Gran % 0.30 % [facility] Comment: Immature granulocytes(IG's)percentage and absolute count will include metamyelocytes, myelocytes, and promyelocytes. Blood smears from CBCs yielding IG's will be scanned manually for concordance. If this scan disagrees with the automated IG or if promyelocytes are noted, a manual differential will be performed. Immature Gran Absolute 0.02 0.00 - 0.04 x10(3)/[facility] Blood specimen (specimen) 06/24/2020 8:40 AM EDT 06/24/2020 8:47 AM EDT Narrative Resulting Agency Comment Spec In Lab Esau Valentin MD HEMATOLOGY ORDERA BLES [facility] [place] [address] * (ABNORMAL) Hemogram (06/24/2020 8:40 AM EDT) White Blood Cell 6.6 4.0 - 9.5 x10(3)/ L [facility] Red Blood Cell 3.46(L) 4.00 - 5.21 x10(6)/mc L [facility] Hemoglobin 8.7(L) 11.7 - 15.5 gm/dL [facility] Hematocrit 29.0(L) 35.7 - 45.8 % [facility] Mean Cell Volume 83.8 82.6 - 94.[address] [facility] Mean Cell Hemoglobin 25.1(L) 27.1 - 32.[address] [facility] Mean Cell Hemoglobin Concentration 30.0(L) 31.7 - 35.0 gm/dL [facility] Platelet 257 145 - 357 x10(3)/mc L [facility] RDW Standard Deviation 42.8 37.0 - 46.[address] [facility] RDW coefficient of variation 14.0 11.5 - 14.1 % [facility] Mean Platelet Volume 10.2 7.6 - 12.9 [facility] NRBC% auto 0.0 % [facility] NRBC Absolute 0.000 0.000 - 0.000 x10(3)/mc L [facility] Blood specimen (specimen) 06/24/2020 8:40 AM EDT 06/24/2020 8:47 AM EDT Narrative Resulting Agency Comment Spec In Lab Esau Valentin MD HEMATOLOGY ORDERA BLES [facility] [place] [address] * Basic Metabolic Panel (non-fasting) (06/24/2020 8:40 AM EDT) Glucose 128 65 - 199 mg/dL [facility] Comment:Diabetes: >=200 mg/d L plus symptoms Blood Urea Nitrogen 10 8 - 18 mg/dL [facility] Creatinine 0.83 0.70 - 1.20 mg/dL [facility] Sodium 137 135 - 145 mmol/L [facility] Potassium 3.6 3.5 - 5.0 mmol/L [facility] Comment: Please note: ??Patients with WBC >100,000 may have falsely elevated Potassium levels. ??For accurate Potassium quantification in these patients send serum separator tube (gold top) for subsequent determinations. ??Contact the Clinical Chemistry Laboratory if there are any questions. Chloride 102 98 - 107 mmol/L [facility] Carbon Dioxide 24 22 - 31 mmol/L [facility] Anion Gap 11 5 - 15 mmol/L [facility] Calcium 8.9 8.5 - 10.5 mg/dL [facility] Est Glomerular Filtration Rate 67 >=60 mL/min/1. 73 m?? [facility] Comment: The eGFR was calculated using the CKD-EPI equation. As with all creatinine based estimates of kidney function, eGFR values calculated with the CKD-EPI equation are not accurate in patients with acute kidney failure, extremes of body mass or the acutely ill. [email or web address] eGFR 78 >=60 mL/min/1. 73 m?? [facility] Comment: The eGFR was calculated using the CKD-EPI equation. As with all creatinine based estimates of kidney function, eGFR values calculated with the CKD-EPI equation are not accurate in patients with acute kidney failure, extremes of body mass or the acutely ill. [email or web address] Blood specimen (specimen) 06/24/2020 8:40 AM EDT 06/24/2020 8:47 AM EDT Narrative Resulting Agency Comment Spec In Lab Esau Valentin MD CHEMISTRY ORDERAB LES [facility] [place] [address] documented in this encounter Visit Diagnoses Diagnosis [...] mcg/mL multi-dose injection ONCE PRN, Starting on Noreen 06/24/20 at 1151, Until Noreen 06/24/20 at 1420, Intra-Operative (Intra-Procedure), Routine Given 06/24/2020 [...] EVERY 6 HOURS SCHEDULED, First dose on Noreen 06/24/20 at 1800, Until Discontinued, Hold for SBP [...] shown in EDT. Scheduled Medication Order 06/23/2020 06/24/202006/2506/25/2020 AMIOdarone (Cordarone; Pacerone) tablet 200 mg 200 [...] on Sun06/24/20 at 2100, Until Discontinued, Routine 210 (Given - Provider: Sandy Wynne RN) 0821 [...] HR <50, Routine 1851 (Given - Provider: iDana Angel RN) 0014 (Given - Provider: Sandy Wynne, LYLA)0535 (Given - Provider: Sandy [place], RN)1221 (Given - Provider: Malika Champagne RN) pantoprazole EC (Protonix) tablet 40 mg 40 mg, Oral, 2 TIMES DAILY, First dose on Noreen 06/24/20 at 2100, Until Discontinued, DO NOT CRUSH OR OPEN, Routine 2100 (Given - Provider: Sandy Wynne RN) 0822 (Given - Provider: Malika Champagne, LYLA) [...] Discontinued, Routine 1634 (Given - Provider: Diana Angel RN) Continuous Medication Order 06/23/2020 06/24/2020 06/25/2020 sodium [...] at 1151, Until Noreen 06/24/20 at 1420, Intra-Operative (Intra-Procedure), Routine 1151 (Given - Provider: Lynette Cotter RN)1205 (Given - Provider: Franlkin Deras)1217 (Given - Provider: Franklin Deras)1340 (Given - Provider: Edmund White RN) glucagon (human recombinant) injection SolR 1 mg(Linked Group 2) 1 mg, Intramuscular, EVERY 30 MIN PRN, Starting on Noreen 06/24/20 at 1609, Until 06/25/20 at 1818, Low blood sugar, For BG [...] Buccal, EVERY 30 MIN PRN, Starting on Sun06/24/20 [...] Routine documented in this encounter Care Teams Litigation Claim Representative Relationship Specialty Start Date End Date Reshma Baig MD [address] [place] [address] PCP - General Family Medicine 11/08/18 06/23/21 documented as of this encounter
--- OUTSIDE RECORDS SUMMARY | 2024-04-28 15:25 | XMS_ITS | Encounter Summary ---
Author Organization [facility] Address [facility] [place] [address] Care Team Providers Care Vp Product Name Role Phone Reshma Baig MD Primary Care Provider [phone] Encounter Details Date Type Department Care Team (Late st Contact Info) Description 06/21/2020 [place] [address] Maria L Green PA [facility] [place] [address] Aortic valve stenosis, etiology of cardiac valve [...] unspecified documented in this encounter Care Teams Vp Product Relationship Specialty Start Date End Date Reshma Baig MD [address] [place] [address] PCP - General Family Medicine 11/08/18 06/23/21 documented as of this encounter
--- OUTSIDE RECORDS SUMMARY | 2024-04-28 15:25 | XMS_ITS | Encounter Summary ---
Author Organization [facility] Address [facility] [place] [address] Care Team Providers Care Printer'S Devil Name Role Phone Reshma Baig MD Primary Care Provider [phone] Reason for Visit * Reason Onset Date Comments Abdominal Pain 06/04/2020 Encounter Details Date Type Department Care Team ([facility] st Contact Info) Description 06/04/2020 [place] [address] Homa Ross APRN [facility] DR [place] [address] Abdominal Pain Social History Tobacco Use Types [...] on filedocumented in this encounter Care Teams Printer'S Devil Relationship Specialty Start Date End Date Reshma Baig MD [address] [place] [address] PCP - General Family Medicine 11/08/18 06/23/21 documented as of this encounter
--- OUTSIDE RECORDS SUMMARY | 2024-04-28 15:25 | XMS_ITS | Encounter Summary ---
Author Organization [facility] [address] Care Team Providers Care Assistant Chief Of Police Name Role Phone Reshma Baig MD Primary Care Provider [phone] Reason for Referral * Diagnostic Test (Routine) - Closed Specialty Diagnoses / Procedures Referred By Malini carlson Referred To Contact Radiology Diagnoses Calculus of gallbladder with acute cholecystitis without obstruction Cholecystostomy tube dysfunction, subsequent encounter Procedures CT Abdomen & Pelvis w Contrast Hong Rosenthal MD [facility] [place] [address] [facility] [place] [address] Referral ID Status Reason Start Date Expiration Date V isits Requested Visits Authorized [id number] Closed Specialty Service Requested 06/16/2020 12/12/2020 1 1 Encounter Details Date Type Department Care Team (Late st Contact Info) Description 06/15/2020 Orders Only [place] [address] Hong Rosenthal MD [facility] [place] [place] [address] Calculus of gallbladder with acute cholecystitis [...] encounter documented in this encounter Care Teams Assistant Chief Of Police Relationship Specialty Start Date End Date Reshma Baig MD [address] [place] [address] PCP - General Family Medicine 11/08/18 06/23/21 documented as of this encounter
--- OUTSIDE RECORDS SUMMARY | 2024-04-28 15:25 | XMS_ITS | Encounter Summary ---
Author Organization [facility] [place] [address] Care Team Providers Care Waist Presser Name Role Phone Reshma Baig MD Primary Care Provider [phone] Reason for Referral * Diagnostic Test (Routine) - Closed Specialty Diagnoses / Procedures Referred By Contronen t Referred To Contact Cardiology Diagnoses Aortic valve stenosis, etiology of cardiac valve disease unspecified Procedures Echocardiogram Transthoracic([facility]) Jordyn Valentin MD [facility] [place] [address] [facility] [place] [address] Referral ID Status Reason Start Date Expiration Date V isits Requested Visits Authorized [id number] Closed Specialty Service Requested 2020 03/06/2021 1 1 Encounter Details Date Type Department Care Team (Latest Contact Info) Description 06/18/2020 3:00 PM EDT Office Visit Cardiology at [address] [address] Jordyn Valentin MD [facility] [place] [address] Type 2 diabetes mellitus with other circulatory complication, unspecified whether termite helper insulin use; Hypertension, unspecified type; Hyperlipidemia, unspecified [...] Jordyn Valentin MD MPH Structural Interventional Cardiology [place] [id number] , #5 Overall clinical summary: This is [...] DRAINAGE 04/28/2020 CT Guided Drain Peritoneal 04/28/2020 [facility] RAD CAT SCAN ??? HYSTERECTOMY, VAGINAL ??? IR BILIARY TUBE CHECK/CHANGE/REMOVE 06/03/2020 IR Biliary Tube Check/Change/Remove 06/03/2020 Jos Collins, DO [facility] INTERVENTIONL RAD ??? IR CHOLECYSTOSTOMY TUBE PLACEMENT 04/22/2020 IR Cholecystostomy Tube Placement 04/22/2020 Jos Collins, DO [facility] INTERVENTIONL RAD ??? IR DRAIN CHECK/CHANGE/REMOVE 05/19/2020 IR Drain Check/Change/Remove 05/19/2020 Jos Collins, DO [facility] INTERVENTIONL RAD ??? PRO UPPER GI ENDOSCOPY, DIAGNOSTIC N/A 05/03/2020 EGD, UPPER GI ENDOSCOPY performed by Brigitte Graf MD at [facility] ENDOSCOPY SOCIAL HISTORY: Reviewed and updated [...] questions, please feel free to contact me: [phone] #3 for interventional nurse or #5 for my learning and development assistant or [email or web address] Moody 06/18/2020 Referring Providers: MD Ariadna Mcdonald James C, MD [facility] [place] [address] JORDYN VALENTIN MD 06/18/2020 TESTING: No results [...] A ? (Age): 1940(80y) Med Rec#: ? [id number] ?Sex: ?F ? [place] ? [facility] ?Ht / Wt: ??157(cm)/80(kg) Pt. Loc: ?Echo Lab ?BSA: ?1.81 Study Date: ?? 09/10/2020 ?Pt. Type: Outpatient Tape: ? Referring: [email or web address] Reading: Darwin Connors ([id number]) Plane Tender: Deb Curtis Diagnosis: *Nonrheumatic aortic (valve) stenosis [...] Vmax ?2.04 ? m/sec ? MV deceleration [id number] ?msec ? MV A-wave Vmax ?1.15 ? [...] 12:48:11 Images reviewed and interpretation verified [facility] Cardiac Ultrasound Laboratory Procedure Note Darwin Connors MD - 09/10/2020 Procedure: Transthoracic Echocardiogram Patient: WILLIAM ANDERSON(Age): 1940(80y) Med Rec#: [id number] Sex: F [place] Loc: [facility] Ht / Wt: 157(cm)/80(kg) Pt. Loc: Echo Lab BSA: 1.81 Study Date: 09/10/2020 Pt. Type: Outpatient Tape: Referring: NAIF Reading: Darwin Connosr ([id number]) Plane Tender: Deb Curtis Diagnosis: *Nonrheumatic aortic (valve) stenosis [...] MV E-wave Vmax 2.04 m/sec MV deceleration [id number] msec MV A-wave Vmax 1.15 m/sec MV [...] 12:48:11 Images reviewed and interpretation verified [facility] Cardiac Ultrasound Laboratory Jordyn Valentin MD ECHO ORDERABLES * Basic Metabolic Panel (non-fasting) (06/24/2020 8:40 AM EDT) Glucose 128 65 - 199 mg/dL [facility] Comment:Diabetes: >=200 mg/d L plus symptoms Blood Urea Nitrogen 10 8 - 18 mg/dL [facility] Creatinine 0.83 0.70 - 1.20 mg/dL [facility] Sodium 137 135 - 145 mmol/L [facility] Potassium 3.6 3.5 - 5.0 mmol/L [facility] Comment: Please note: ??Patients with WBC >100,000 may have falsely elevated Potassium levels. ??For accurate Potassium quantification in these patients send serum separator tube (gold top) for subsequent determinations. ??Contact the Clinical Chemistry Laboratory if there are any questions. Chloride 102 98 - 107 mmol/L [facility] Carbon Dioxide 24 22 - 31 mmol/L [facility] Anion Gap 11 5 - 15 mmol/L [facility] Calcium 8.9 8.5 - 10.5 mg/dL [facility] Est Glomerular Filtration Rate 67 >=60 mL/min/1. 73 m?? [facility] Comment: The eGFR was calculated using the CKD-EPI equation. As with all creatinine based estimates of kidney function, eGFR values calculated with the CKD-EPI equation are not accurate in patients with acute kidney failure, extremes of body mass or the acutely ill. [email or web address] eGFR 78 >=60 mL/min/1. 73 m?? [facility] Comment: The eGFR was calculated using the CKD-EPI equation. As with all creatinine based estimates of kidney function, eGFR values calculated with the CKD-EPI equation are not accurate in patients with acute kidney failure, extremes of body mass or the acutely ill. 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
--- OUTSIDE RECORDS SUMMARY | 2024-04-28 15:25 | XMS_ITS | Encounter Summary ---
[place] [address] Care Team Providers Care Shift Mgr Name Role Phone Reshma Baig MD Primary Care Provider [phone] Reason for Referral * Diagnostic Test (Routine) - Closed Specialty Diagnoses / Procedures Referred By Malini carlson Referred To Contact Radiology Diagnoses Cholecystitis Infection of cholecystostomy drain, initial encounter Hepatic abscess Type 2 diabetes mellitus with other circulatory complication, unspecified whether superintendent marine oil terminal insulin use Procedures IR Drain Check/Change/Remove Jos Collins, [facility] [place] [address] [place] [address] Referral ID Status Reason Start Date Expiration Date V isits Requested Visits Authorized [id number] Closed Specialty Service Requested 04/28/2020 10/26/2021 1 1 Reason for Visit * Diagnostic Test (Routine) - Closed Specialty Diagnoses / Procedures Referred By Malini carlson Referred To Contact Radiology Diagnoses Cholecystitis Infection of cholecystostomy drain, initial encounter Hepatic abscess Type 2 diabetes mellitus with other circulatory complication, unspecified whether usp insulin use Procedures IR Drain Check/Change/Remove Jos Collins DO [facility] [place] [address] [facility] [place] [address] Referral ID Status Reason Start Date Expiration Date V isits Requested Visits Authorized [id number] Closed Specialty Service Requested 04/28/2020 10/26/2021 1 1 Encounter Details Date Type Department Care Team (Latest Contact Info) Description 05/19/2020 9:14 AM EDT - 05/19/2020 11:59 PM EDT Hospital [place] [id number] Cholecystitis; Infection of cholecystostomy drain, initial encounter; Hepatic abscess; Type 2 diabetes mellitus with other circulatory complication, unspecified whether superintendent marine oil terminal insulin use Discharge Disposition: Home Social History [...] Qureshi RN - 05/19/2020 10:59 AM EDT [facility] Vascular and Interventional Radiology TUBE CARE [...] is during regular office hours, please call [phone]. If it is after regular office hours, or on weekends or holidays, please call [phone] and ask to speak to the Base Loader transition nurse for Interventional Radiology. You have received medication [...] of : 1940 AGE: 79 y.o. Address: [address] [place] [address] (home) Mobile: Telephone Information: Referring Provider: Jos Collins REASON FOR VISIT: Order Questions Answers Where will study be performed? [facility] Radiology [120] Reason for exam and [...] Questions Answers Where will study be performed? [facility] Radiology [120] Reason for exam and [...] DRAINAGE 04/28/2020 CT Guided Drain Peritoneal 04/28/2020 [facility] RAD CAT SCAN ??? HYSTERECTOMY, VAGINAL ??? IR CHOLECYSTOSTOMY TUBE PLACEMENT 04/22/2020 IR Cholecystostomy Tube Placement 04/22/2020 Jos Collins P, DO [facility] INTERVENTIONL RAD ??? PRO UPPER GI ENDOSCOPY, DIAGNOSTIC N/A 05/03/2020 EGD, UPPER GI ENDOSCOPY performed by Brigitte Graf MD at [facility] ENDOSCOPY Medications: Current Outpatient Medications on [...] file Gets together: Not on file Attends mormonism service: Not on file Active member of [...] mellitus with other circulatory complication, unspecified whether usp insulin use documented in this encounter Results [...] The procedure was performed under fluoroscopic guidance. Beam Sealer fluoroscopic images of the right upper quadrant [...] mellitus with other circulatory complication, unspecified whether usp insulin use documented in this encounter Administered [...] mL/hr documented in this encounter Care Teams Shift Mgr Relationship Specialty Start Date End Date Reshma Baig MD [address] [place] [address] PCP - General Family Medicine 11/08/18 06/23/21 documented as of this encounter
--- OUTSIDE RECORDS SUMMARY | 2024-04-28 15:25 | XMS_ITS | Encounter Summary ---
Author Organization [facility] Address [facility] [place] [address] Care Team Providers Care Auto Damage Estimator Name Role Phone Reshma Baig MD Primary Care Provider [phone] Encounter Details Date Type Department Care Team (Late st Contact Info) Description 06/15/2020 Telephone [place] [address] Hong Rosenthal MD [facility] [place] [address] Social History Tobacco Use Types Packs/Day Years [...] difficile documented in this encounter Care Teams Auto Damage Estimator Relationship Specialty Start Date End Date Reshma Baig MD [address] [place] [address] PCP - General Family Medicine 11/08/18 06/23/21 documented as of this encounter
--- OUTSIDE RECORDS SUMMARY | 2024-04-28 15:25 | XMS_ITS | Encounter Summary ---
[place] [address] Care Team Providers Care Furnace Brazer Name Role Phone Reshma Baig MD Primary Care Provider [phone] Encounter Details Date Type Department Care Team (Late st Contact Info) Description 06/04/2020 Telephone [place] [id number] Summer Trivedi, RN Social History Tobacco Use [...] from IR Tube Call from RN at [facility]. Patient is reporting pain from IR [...] on filedocumented in this encounter Care Teams Furnace Brazer Relationship Specialty Start Date End Date Reshma Baig MD [address] [place] [address] PCP - General Family Medicine 11/08/18 06/23/21 documented as of this encounter
--- OUTSIDE RECORDS SUMMARY | 2024-04-28 15:25 | XMS_ITS | Encounter Summary ---
[place] [address] Care Team Providers Care Desktop Technician Name Role Phone Regis Muller MD Primary Care Provider [phone] Reason for Visit * Reason Onset Date Comments Medication Refill 06/08/2020 Encounter Details Date Type Department Care Team (Late st Contact Info) Description 06/08/2020 Refill [place] [address] Sherrie Holbrook Social History Tobacco Use Types [...] documented as of this encounter Care Teams Desktop Technician Relationship Specialty Start Date End Date Regis Muller MD [address] [place] [address] PCP - General Emergency Medicine 06/24/21 documented as of this encounter
--- OUTSIDE RECORDS SUMMARY | 2024-04-28 15:25 | XMS_ITS | Encounter Summary ---
Author Organization [facility] [place] [address] Care Team Providers Care Crew Person Name Role Phone Reshma Baig MD Primary Care Provider [phone] Reason for Referral * Diagnostic Test (Routine) - Closed Specialty Diagnoses / Procedures Referred By Malini t Referred To Contact Radiology Diagnoses Calculus of gallbladder with acute cholecystitis without obstruction Cholecystostomy tube dysfunction, subsequent encounter Procedures CT Abdomen & Pelvis w Contrast Hong Rosenthal MD [facility] [place] [address] [facility] [place] [address] Referral ID Status Reason Start Date Expiration Date V isits Requested Visits Authorized [id number] Closed Specialty Service Requested 06/16/2020 12/12/2020 1 1 Reason for Visit * Diagnostic Test (Routine) - Closed Specialty Diagnoses / Procedures Referred By Malini t Referred To Contact Radiology Diagnoses Calculus of gallbladder with acute cholecystitis without obstruction Cholecystostomy tube dysfunction, subsequent encounter Procedures CT Abdomen & Pelvis w Contrast Hong Rosenthal MD [facility] [place] [address] [facility] [place] [address] Referral ID Status Reason Start Date Expiration Date V isits Requested Visits Authorized [id number] Closed Specialty Service Requested 06/16/2020 12/12/2020 1 1 Encounter Details Date Type Department Care Team (Latest Contact Info) Description 06/18/2020 10:23 AM EDT - 06/18/2020 11:59 PM EDT Hospital Encounter CT Scan at [facility] [place] [address] Hong Rosenthal MD [facility] [place] [address] Calculus of gallbladder with acute cholecystitis without [...] Brand, 250.02. 1 each 0 12/02/2013 [facility] Use twice daily or as needed. 200 [...] ? Electronically signed by: Renny Orta MD, [facility] ([phone]), at 06/18/2020 3:03 PM Narrative 06/18/2020 3:03 [...] below. Electronically signed by: Renny Orta MD, [facility]([phone]), at 06/18/2020 3:03 PM Hong Rosenthal MD [...] mLs documented in this encounter Care Teams Crew Person Relationship Specialty Start Date End Date Reshma Baig MD [address] [place] [address] PCP - General Family Medicine 11/08/18 06/23/21 documented as of this encounter
--- OUTSIDE RECORDS SUMMARY | 2024-04-28 15:25 | XMS_ITS | Encounter Summary ---
Author Organization [facility] Address [facility] [place] [address] Care Team Providers Care Inpatient Services Director Name Role Phone Reshma Baig MD Primary Care Provider Reason for Visit * Auth/Cert Specialty Diagnoses [...] Expiration Date Visits Re quested Visits Authorized [id number] 1 1 Encounter Details Date Type Department Care Team (Late st Contact Info) Description 06/24/2020 8:12 AM EDT - 06/25/2020 3:30 PM EDT Hospital Encounter [place] [address] Esau Valentin MD [facility] [place] [address] Benoit Schumacher MD [facility] [place] [place] [address] Maria L Salazar MD [facility] [place] [address] Aortic valve stenosis, etiology of cardiac valve [...] Shannan Thomas Patient Age: 79 y.o. Language: Gabonese Race: White Ethnicity: Not nor Admit date: [...] Arnold MD Sarah Hansen, PA-C Bridget Meador, QUALITY ASSOCIATE Cardiovascular Medicine [phone] Discharge Diagnoses (Hospital Problems) and Secondary Diagnoses [...] Comments: Valvuloplasty Balloon: 18mmx4.5cm True Dilitation Balloon, Lot#[id number]. 2nd Balloon 20mmx4.5cm True Dilitation Balloon Lot#[id number]. Ultrasound and fluoroscopy used to select vascular [...] Quantity: 300 each Refills: 3 Blood-Glucose Meter [facility] One Touch Ultra Brand, 250.02. Quantity: 1 [...] of 8A-5PM please call the Cardiology Clinic [phone] to speak with a nurse. All other hours please call the Hospital Benefits Officer [phone] and ask to speak to the senior marketing data analyst on-call. Return to work: One week Driving: No driving for 48 hours after cath Follow up Appointments: Doctor Where Phone # Date Time PCP Reshma Baig MD [address] [place] [address] Thursday, July 02, [address] Baig's DISTILLERY MILLER 9:00 am (please arrive by 8:45 am) Machine Sand Mixer-- Dr. Galindo [facility] Cardiology office [phone] Monday, July 13, 2020 10:40 am Home oxygen therapy: N/A Arrangements for VNA/home care: N/A Future Appointments and Orders Future Orders Complete By Expires Referral to Home Health - at DISCHARGE [[id number] CPT(R)] As directed Process Instructions: Scheduling Instructions: Comments: DOCUMENTATION FOR VNA SERVICES (INCLUDING THOSE PATIENTS WITH MEDICARE COVERAGE REQUIRING HOME VNA SERVICES AND/OR HOSPICE SERVICES) PATIENT'S LOCATION: Shannan Francis [address] [address] (home) Cell: Telephone Information: Thermal Cutter Helper's Name: Patient In discussion with the attending physician, it is certified that this patient is under their care and that they, or a Nurse Practitioner,Clinical Nurse specialist or Physician Housekeeping Coordinator who is working directly with them, had [...] previously in place. HOME HEALTH CARE AGENCY: [facility] [employer]. PHONE: [phone] FAX: [phone] Start of care: 24 to 48 hours [...] Reshma Baig MD [address] / [facility] [address] All A agencies which cover the area of patient's residence have been reviewed, either verbally janay writing, and patient/family have chosen the home health care agency noted Questions: Agency name and contact information: [facility] Patient location post discharge: home What services are requested: Registered Nurse Start date: Responsible MD post discharge contact info: PCP Discharge References/Attachments None Inez Cartagena, MSN, CORK PAINTER AND GRADER-BC, QUALITY ASSOCIATE [facility] Cardiovascular Medicine Associated attestation - Maria L Salazar MD - 06/25/2020 3:23 PM EDT Cardiology Attending Discharge Addendum I was the assigned attending special loan officer for this clinical encounter. For the purposes [...] My contact information: Maria L [place] [address] (office); Pager #[phone] Email: [email or web address] documented in this encounter Discharge Instructions * Discharge Instructions* Inez Cartagena, QUALITY ASSOCIATE - 06/25/2020 1:34 PM EDT Call your doctor if: Chest pain, dyspnea, pain or swelling in legs occurs If you have non-emergent questions, prior to your follow-up visit call: Sunday-Sunday between the hours of 8A-5PM please call the Cardiology Clinic [phone] to speak with a nurse. All other hours please call the Hospital Benefits Officer [phone] and ask to speak to the senior marketing data analyst on-call. Return to work: One week Driving: No driving for 48 hours after cath Follow up Appointments: Doctor Where Phone # Date Time PCP Reshma Baig MD [address] [place] [address] Thursday, July 02, [address] Baig's DISTILLERY MILLER 9:00 am (please arrive by 8:45 am) Machine Sand Mixer-- Dr. Galindo [facility] Cardiology office [phone] Monday, July 13, 2020 10:40 am Home [...] RN - 06/25/2020 1:51 PM EDT The patient/security representative has been provided a list of Home Health Agencies/DME vendors which servetheir preferred geographic area. A letter describing our affiliations was reviewed with them and they were educated about their right to choose where referrals are placed. Provided patient with [facility] Star Quality Rating for Home care hand out. Patient requests referral to [facility]. PHONE: [phone] FAX: [phone] Expected date of discharge: 06/25/20. Referral routed to the Senior Clinician for matching with agency/vendor and to provide any required information. 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 Aortic valve stenosis Added automatically from request for surgery [id number] ??? Severe aortic stenosis Resolved Hospital Problems [...] 6. No pericardial effusion. Prior Cardiac Studies: [facility] 04/21/20 Conclusions: * Two vessel coronary artery [...] Maria L Chawla MD. Inez Cartagena, MSN, CORK PAINTER AND GRADER-BC, QUALITY ASSOCIATE 06/25/2020 Pager [phone] Associated attestation - Maria L Salazar MD - 06/25/2020 3:24 PM EDT I was the assigned attending special loan officer for this clinical encounter. 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 Aortic valve stenosis Added automatically from request for surgery [id number] ??? Severe aortic stenosis Resolved Hospital Problems [...] for pacemaker, manual hold Prior Cardiac Studies: [facility] 04/21/20 Conclusions: * Two vessel coronary artery [...] Valentin MD;Benoit Ravi* Candice Lewis PA-C Pager #[phone] 06/24/2020 Associated attestation - Benoit Schumacher MD [...] date: 06/24/2020 Attending Physician: Esau Valentin MD [facility] Interventional Cardiology Adult Pre-Procedure H&P Update: Mrs Shannan Thomas (Gladis) [id number] 1940 Chief Complaint: dyspnea, fatigue, severe aortic [...] Medical History: SOCIAL Hx: Lives alone in [facility]. 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 (Only good for 90 days) Any patient receiving care at [facility] must abide by [place] law. The hierarchy for surrogate decision making [...] The agent with financial power of assistant professor of biochemistry or a conservator appointed in accordance with [...] DC: None Home Address confirmed as: [address] [place] [facility] [address] Social & Family Supports: All names listed below confirmed with patient as current and correct. Extended Emergency Contact Information Primary Emergency Contact: NATTY REDMAN Mobile Relation: Child Secondary Emergency Contact: [place] [address] [facility] Mobile Relation: None Community Resources being provided currently: Outpatient/Agency/Support Group Needs: (none) Behavioral Health History: Current or Prior Mental Health History: none noted Other Pertinent/Service Specific Information: No Health/Prescription Coverage: Primary Insurance: [employer] [place] Payor: [place] / Plan[place] / Product Type: *No Product type* / Secondary Insurance: MEDICARE Prescription Coverage: yes Preferred Pharmacy: [id number] - [place], [place] - [address] [facility] [address] [facility] [address] [facility] [place], [place] - [facility] [address] [facility] [place], [place] - [address] [facility] [address] Primary Care Provider: Reshma Baig MD [phone] Patient/Caregiver Goals of Treatment: DC home Potential [...] of care planning. Chioma Vann RN, MSN, tree driller Office of Care Management Pager: [phone] Work * Plan of Care - Wendie [...] Operative Note Patient Name: Shannan Thomas : [id number] MR#: [id number] Case Date: 06/24/2020 Surgeon: Surgeon(s) and Role: * Esau Valentin MD - Primary * Dago Merchant PA - Physician Housekeeping Coordinator Preoperative diagnosis: Aortic valve stenosis, etiology of [...] * POCT Glucose (06/25/2020 11:55 AM EDT) Glucose, POC 177 65 - 199 mg/dL [facility] Comment: Supplemental ranges: <140 mg/dL before meals <180 mg/dL all other times of the day Blood specimen (specimen) 06/25/2020 11:55 AM EDT 06/25/2020 11:55 AM EDT Maria L Chawla MD POINT OF CAR E TEST ORDERABLES [facility] [place] [address] * ECHO LMTD W/O CONTRAST W LMTD SPEC DOPP COLOR DOPP (06/25/2020 10:56 AM EDT) EF 72 HEARTLAB SYSTEM Anatomical Region Laterality Modality Other 06/25/2020 Narrative 06/25/2020 11:17 AM EDT Procedure: ?Transthoracic Echocardiogram Patient: ?WILLIAM SHANNAN A ? (Age): 1940(79y) Med Rec#: ? [id number] ?Sex: ?F ? Site Loc: ? [facility] ?Ht / Wt: ??158(cm)/79(kg) Pt. Loc: ?Adult Floor ? BSA: ?1.81 Study Date: ?? 06/25/2020 ?Pt. Type: Inpatient Tape: ? Referring: ESAU VALENTIN J Reading: Alvin Ramos ([id number]) Assistant Director Of Nursing: Alvin Herrera [facility] Diagnosis: *Nonrheumatic aortic (valve) [...] Vmax ?1.91 ? m/sec ? MV deceleration [id number] ?msec ? MV A-wave Vmax ?1.38 ? [...] ? CORINE (continuity Vmax0.65 ? cm2 ? CORNIE (continuity Vmax0.36 ? cm2/m2 ? CORINE (continuity [...] ? Mid-Inferior ?Normal ? Mid-Inferoseptal ?Normal ? Dolliver-Septal ? Normal ? Dolliver-Anterior ? Normal ? Dolliver-Lateral ?Normal ? Dolliver-Inferior ? Normal ? Dolliver-Tip ?Normal ? This report has been electronically signed by: Alvin Ramos MD ? 06/25/2020 11:16:39 Images reviewed and interpretation verified [facility] Cardiac Ultrasound Laboratory Procedure Note Alvin Ramos MD - 06/25/2020 Procedure: Transthoracic Echocardiogram Patient: WILLIAM Francis DOB(Age): 1940(79y) Med Rec#: [id number] Sex: F Site Loc: [facility] Ht / Wt: 158(cm)/79(kg) Pt. Loc: Adult Floor BSA: 1.81 Study Date: 06/25/2020 Pt. Type: Inpatient Tape: Referring: ESAU VALENTIN J Reading: Alvin Ramos ([id number]) Assistant Director Of Nursing: Alvin Herrera [facility] Diagnosis: *Nonrheumatic aortic (valve) [...] MV E-wave Vmax 1.91 m/sec MV deceleration epck785 msec MV A-wave Vmax 1.38 m/sec MV [...] Normal Mid-Posterolateral Normal Mid-Inferior Normal Mid-Inferoseptal Normal Dolliver-Septal Normal Dolliver-Anterior Normal Dolliver-Lateral Normal Dolliver-Inferior Normal Dolliver-Tip Normal This report has been electronically signed by: Alvin Ramos MD 06/25/2020 11:16:39 Images reviewed and interpretation verified [facility] Cardiac Ultrasound Laboratory Benoit Schumacher MD ECHO ORDERABLES * POCT Glucose (06/25/2020 7:39 AM EDT) Glucose, POC 141 65 - 199 mg/dL [facility] Comment: Supplemental ranges: <140 mg/dL before meals <180 mg/dL all other times of the day Blood specimen (specimen) 06/25/2020 7:39 AM EDT 06/25/2020 7:39 AM EDT Maria L Chawla MD POINT OF CAR E TEST ORDERABLES [facility] [place] [address] * EKG 12 Lead (06/25/2020 7:16 AM EDT) Ventricular rate 59 BPM MUSE SYSTEM Atrial Rate 59 BPM MUSE SYSTEM P-R Interval 138 ms MUSE SYSTEM QRS Duration 126 ms MUSE SYSTEM Q-T Interval 482 ms MUSE SYSTEM QTC Calculated (Bezet) 477 ms MUSE SYSTEM Calculated P Salem 16 degrees MUSE SYSTEM Calculated R Salem 64 degrees MUSE SYSTEM Calculated T Salem -34 degrees MUSE SYSTEM INTERPRETATION Sinus bradycardia Right bundle branch block T wave abnormality, consider inferior ischemia Abnormal ECG When compared with ECG of 24-JUN-2020 14:28, Right bundle branch block has replaced Non-specific intra-ventricular conduction block I personally reviewed the tracing and edited the fellows interpretation Confirmed by fellow Alvin Otoole ([id number]) on 06/25/2020 1:49:17 PM Confirmed by MD Castillo Michael ([id number]) on 06/25/2020 5:18:05 PM MUSE SYSTEM 06/25/2020 7:16 AM EDT 06/25/2020 5:18 PM EDT Benoit Schumacher MD ECG ORDERABLES MUSE SYSTEM * Differential, Automated (06/25/2020 5:13 AM EDT) Neutrophil % 57.5 % [facility] Neutrophil Absolute 3.28 1.70 - 6.10 x10(3)/[facility] Lymph % 25.4 % [facility] Lymphocytes Abs 1.4 0.9 - 3.2 x10(3)/[facility] Monocyte % 10.0 % [facility] Monocyte Abs 0.6 0.3 - 0.9 x10(3)/[facility] Eos % 5.6 % [facility] Eosinophils Abs 0.3 0.0 - 0.4 x10(3)/[facility] Basophil % 1.1 % [facility] Baso Absolute 0.1 0.0 - 0.1 x10(3)/[facility] Immature Gran % 0.40 % [facility] Comment: Immature granulocytes(IG's)percentage and absolute count will include metamyelocytes, myelocytes, and promyelocytes. Blood smears from CBCs yielding IG's will be scanned manually for concordance. If this scan disagrees with the automated IG or if promyelocytes are noted, a manual differential will be performed. Immature Gran Absolute 0.02 0.00 - 0.04 x10(3)/[facility] Blood specimen (specimen) 06/25/2020 5:13 AM EDT 06/25/2020 5:32 AM EDT Narrative Resulting Agency Comment Spec In Lab Candice ARMANDO HEMATOLOGY ORDERABL ES [facility] [place] [address] * (ABNORMAL) Hemogram (06/25/2020 5:13 AM EDT) White Blood Cell 5.7 4.0 - 9.5 x10(3)/mc L [facility] Red Blood Cell 3.18(L) 4.00 - 5.21 x10(6)/mc L [facility] Hemoglobin 7.8(L) 11.7 - 15.5 gm/dL [facility] Hematocrit 27.1(L) 35.7 - 45.8 % [facility] Mean Cell Volume 85.2 82.6 - 94.4 fL [facility] Mean Cell Hemoglobin 24.5(L) 27.1 - 32.0 pg [facility] Mean Cell Hemoglobin Concentration 28.8(L) 31.7 - 35.0 gm/dL [facility] Platelet 240 145 - 357 x10(3)/mc L [facility] RDW Standard Deviation 43.9 37.0 - 46.0 fL [facility] RDW coefficient of variation 14.1 11.5 - 14.1 % [facility] Mean Platelet Volume 9.9 7.6 - 12.9 fL [facility] NRBC% auto 0.0 % [facility] NRBC Absolute 0.000 0.000 - 0.000 x10(3)/mc L [facility] Blood specimen (specimen) 06/25/2020 5:13 AM EDT 06/25/2020 5:32 AM EDT Narrative Resulting Agency Comment Spec In Lab Candice ARMANDO HEMATOLOGY ORDERABL ES [facility] [place] [address] * (ABNORMAL) CMP w/fasting Glucose (06/25/2020 5:13 AM EDT) Glucose Fasting 150(H) 65 - 99 mg/dL [facility] Comment: ?Fasting* Glucose Interpretive [...] of Diabetes Mellitus, Position Statement from the [place] [employer]. ??Diabetes Care, Volume 33, Supplement 1, Aug 2009 Blood Urea Nitrogen 10 8 - 18 mg/dL [facility] Creatinine 0.73 0.70 - 1.20 mg/dL [facility] Sodium 139 135 - 145 mmol/L [facility] Potassium 3.6 3.5 - 5.0 mmol/L [facility] Comment: Please note: ??Patients with WBC >100,000 may have falsely elevated Potassium levels. ??For accurate Potassium quantification in these patients send serum separator tube (gold top) for subsequent determinations. ??Contact the Clinical Chemistry Laboratory if there are any questions. Chloride 108(H) 98 - 107 mmol/L [facility] Carbon Dioxide 23 22 - 31 mmol/L [facility] Anion Gap 8 5 - 15 mmol/L [facility] Calcium 8.4(L) 8.5 - 10.5 mg/dL [facility] Protein, Total 5.7(L) 6.1 - 8.0 gm/dL [facility] Albumin 3.4 3.2 - 5.2 gm/dL [facility] Aspartate Aminotransferase 15 0 - 30 unit/L [facility] Alanine Aminotransferase 12 0 - 30 unit/L [facility] Alkaline Phosphatase 86 35 - 105 unit/L [facility] Bilirubin, Total 0.9 0.2 - 1.3 mg/dL [facility] Est Glomerular Filtration Rate 78 >=60 mL/min/1. 73 m?? [facility] Comment: The eGFR was calculated using the CKD-EPI equation. As with all creatinine based estimates of kidney function, eGFR values calculated with the CKD-EPI equation are not accurate in patients with acute kidney failure, extremes of body mass or the acutely ill. http://[employer]/[facility]nkf eGFR 91 >=60 mL/min/1. 73 m?? [facility] Comment: The eGFR was calculated using the CKD-EPI equation. As with all creatinine based estimates of kidney function, eGFR values calculated with the CKD-EPI equation are not accurate in patients with acute kidney failure, extremes of body mass or the acutely ill. http://[employer]/[facility]nk[facility] Blood specimen (specimen) 06/25/2020 5:13 AM EDT 06/25/2020 5:32 AM EDT Narrative Resulting Agency Comment Spec In Lab Benoit Schumacher MD CHEMISTRY ORDER JAMIE [facility] [place] [address] * Magnesium (06/25/2020 5:13 AM EDT) Magnesium 0.70 0.69 - 1.07 mmol/L [facility] Blood specimen (specimen) 06/25/2020 5:13 AM EDT 06/25/2020 5:32 AM EDT Narrative Resulting Agency Comment Spec In Lab Benoit Schumacher MD CHEMISTRY ORDER JAMIE Performing Organization Address City/[facility]/ZIP Co de Phone Number [facility] [place] [place] [address] * POCT Glucose (06/24/2020 9:03 PM EDT) Glucose, POC 197 65 - 199 mg/dL [facility] Comment: Supplemental ranges: <140 mg/dL before meals <180 mg/dL all other times of the day Blood specimen (specimen) 06/24/2020 9:03 PM EDT 06/24/2020 9:03 PM EDT Benoit Schumacher MD POINT OF CARE T EST ORDERABLES Performing Organization Address [facility] Co de Phone Number [facility] [place] [address] * POCT Glucose (06/24/2020 3:59 PM EDT) Glucose, POC 95 65 - 199 mg/dL [facility] Comment: Supplemental ranges: <140 mg/dL before meals <180 mg/dL all other times of the day Blood specimen (specimen) 06/24/2020 3:59 PM EDT 06/24/2020 3:59 PM EDT Esau Valentin MD POINT OF CARE MISTY T ORDERABLES Performing Organization Address City/[facility]/ZIP Co de Phone Number [facility] [place] [place] [address] * EKG 12 Lead (06/24/2020 2:28 PM EDT) Ventricular rate 78 BPM MUSE SYSTEM Atrial Rate 78 BPM MUSE SYSTEM P-R Interval 202 ms MUSE SYSTEM QRS Duration 134 ms MUSE SYSTEM Q-T Interval 470 ms MUSE SYSTEM QTC Calculated (Bezet) 535 ms MUSE SYSTEM Calculated P Salem 52 degrees MUSE SYSTEM Calculated R Salem 99 degrees MUSE SYSTEM Calculated T Salem -60 degrees MUSE SYSTEM INTERPRETATION Normal sinus [...] Modality Other Narrative 06/24/2020 2:49 PM EDT ?[facility] ? Cardiac Catheterization/Intervention Report ? Patient Name: WILLIAMSHANNAN SANCHEZ A. ? Procedure Date: 06/24/2020 ? A #: [id number] ? Primary Physician: Esau Valentin ? Case #: [id number] ? File Name: [id number] ? Catheterization Order Number: [id number] ? [facility] ? Final Report [place], [place] ? Patient Name: ? SHANNAN A. WILLIAM ? ID#: ?[id number] ? : ?1940 ? Procedure Date: ? June 24, 2020 ? Case #: ? [id number] ? Room: ? 6 ? Case Physician: ? Esau Valentin M.D. ?Start: ?12:10 ? Admission: ??06/24/2020 ? Referring Physician: ??Reshma Baig M.D. ? Procedures: ?* Left Heart Catheterization ?* Aortic Valvuloplasty ?* Temporary Pacemaker Insertion In Chemistry Professor ?* Transthoracic Echo During Cath ?* Vascular Ultrasound ? History ?SHANNAN A. WILLIAM is a 79 year old woman. She [...] was designated as ASA Class IV. The HA clinical frailty ?scale is 5: Mildly Frail. [...] Comments: ?Valvuloplasty Balloon: 18mmx4.5cm True Dilitation Balloon, Lot#[id number]. ?2nd Balloon 20mmx4.5cm True Dilitation Balloon ?Lot#[id number]. ?Ultrasound and fluoroscopy used to select vascular [...] ?heart catheterization, vascular ultrasound, temporary pacemaker in optical laboratory mechanic ?and transthoracic echo . ? Esau J Coylewright, ? M.D. ? Electronically Signed by: Esau Escobar Coylewright, M.D. ? Report Finalized: 06/24/2020 ??14:42 ? Procedure Note Esau Valentin MD - 06/24/2020 [facility] Cardiac Catheterization/Intervention Report Patient Name: SHANNAN THOMAS Procedure Date: 06/24/2020 A #: [id number] Primary Physician: Esau Valentin Case #: [id number] File Name: [id number] Catheterization Order Number: [id number] [facility] FinalReport [place], [place] Patient Name: SHANNAN THOMAS ID#:[id number] :1940 Procedure Date: June 24, 2020 Case #: [id number] Room: 6 Case Physician: Esau Valentin M.D. Start: 12:10 Admission:06/24/2020 Referring Physician: Reshma Baig M.D. Procedures: * Left Heart Catheterization * Aortic Valvuloplasty * Temporary Pacemaker Insertion In Chemistry Professor * Transthoracic Echo During Cath * Vascular Ultrasound History SHANNNA THOMAS is a 79 year old woman. [...] was designated as ASA Class IV. The [facility] clinicalfrailty scale is 5: Mildly Frail. [...] procedures. Comments: Valvuloplasty Balloon: 18mmx4.5cm True Dilitation Balloon,Lot#[id number]. 2nd Balloon 20mmx4.5cm True Dilitation Balloon Lot#[id number]. Ultrasound and fluoroscopy used to select vascular [...] * POCT Glucose (06/24/2020 12:53 PM EDT) Glucose, POC 105 65 - 199 mg/dL [facility] Comment: Supplemental ranges: <140 mg/dL before meals <180 mg/dL all other times of the day Blood specimen (specimen) 06/24/2020 12:53 PM EDT 06/24/2020 12:53 PM EDT Esau Valentin MD POINT OF CARE MISTY T ORDERABLES Performing Organization Address [facility] Co de Phone Number [facility] [place] [place] [address] * POCT Glucose (06/24/2020 9:18 AM EDT) Glucose, POC 122 65 - 199 mg/dL [facility] Comment: Supplemental ranges: <140 mg/dL before meals <180 mg/dL all other times of the day Blood specimen (specimen) 06/24/2020 9:18 AM EDT 06/24/2020 9:18 AM EDT Esau Valentin MD POINT OF CARE MISTY T ORDERABLES Performing Organization Address City/[facility]/ZIP Co de Phone Number [facility] [place] [place] [address] * EKG 12 Lead (06/24/2020 9:15 AM EDT) Ventricular rate 64 BPM MUSE SYSTEM Atrial Rate 64 BPM MUSE SYSTEM P-R Interval 126 ms MUSE SYSTEM QRS Duration 126 ms MUSE SYSTEM Q-T Interval 472 ms MUSE SYSTEM QTC Calculated (Bezet) 486 ms MUSE SYSTEM Calculated P [place] 6 degrees MUSE SYSTEM Calculated R [place] 17 degrees MUSE SYSTEM Calculated T [place] -20 degrees MUSE SYSTEM INTERPRETATION Normal sinus rhythm Right bundle branch block Abnormal ECG When compared with ECG of 30-APR-2020 08:01, No significant change was found Confirmed by MD AMES SALVATORE ([id number]) on 06/24/2020 12:24:07 PM MUSE SYSTEM 06/24/2020 9:15 AM EDT 06/24/2020 12:24 PM EDT Esau Valentin MD ECG ORDERABLES MUSE SYSTEM * Differential, Automated (06/24/2020 8:40 AM EDT) Neutrophil % 56.2 % [facility] Neutrophil Absolute 3.72 1.70 - 6.10 x10(3)/[facility] Lymph % 28.4 % [facility] Lymphocytes Abs 1.9 0.9 - 3.2 x10(3)/[facility] Monocyte % 10.1 % [facility] Monocyte Abs 0.7 0.3 - 0.9 x10(3)/[facility] Eos % 3.9 % [facility] Eosinophils Abs 0.3 0.0 - 0.4 x10(3)/[facility] Basophil % 1.1 % [facility] Baso Absolute 0.1 0.0 - 0.1 x10(3)/[facility] Immature Gran % 0.30 % [facility] Comment: Immature granulocytes(IG's)percentage and absolute count will include metamyelocytes, myelocytes, and promyelocytes. Blood smears from CBCs yielding IG's will be scanned manually for concordance. If this scan disagrees with the automated IG or if promyelocytes are noted, a manual differential will be performed. Immature Gran Absolute 0.02 0.00 - 0.04 x10(3)/[facility] Blood specimen (specimen) 06/24/2020 8:40 AM EDT 06/24/2020 8:47 AM EDT Narrative Resulting Agency Comment Spec In Lab Esau Valentin MD HEMATOLOGY ORDERA BLES [facility] [place] [address] * (ABNORMAL) Hemogram (06/24/2020 8:40 AM EDT) White Blood Cell 6.6 4.0 - 9.5 x10(3)/mc L [facility] Red Blood Cell 3.46(L) 4.00 - 5.21 x10(6)/mc L [facility] Hemoglobin 8.7(L) 11.7 - 15.5 gm/dL [facility] Hematocrit 29.0(L) 35.7 - 45.8 % [facility] Mean Cell Volume 83.8 82.6 - 94.4 fL [facility] Mean Cell Hemoglobin 25.1(L) 27.1 - 32.0 pg [facility] Mean Cell Hemoglobin Concentration 30.0(L) 31.7 - 35.0 gm/dL [facility] Platelet 257 145 - 357 x10(3)/mc L [facility] RDW Standard Deviation 42.8 37.0 - 46.0 [facility] RDW coefficient of variation 14.0 11.5 - 14.1 % [facility] Mean Platelet Volume 10.2 7.6 - 12.9 fL [facility] NRBC% auto 0.0 % [facility] NRBC Absolute 0.000 0.000 - 0.000 x10(3)/mc L [facility] Blood specimen (specimen) 06/24/2020 8:40 AM EDT 06/24/2020 8:47 AM EDT Narrative Resulting Agency Comment Spec In Lab Esau Valentin MD HEMATOLOGY ORDERA BLES [facility] [place] [address] * Basic Metabolic Panel (non-fasting) (06/24/2020 8:40 AM EDT) Glucose 128 65 - 199 mg/dL [facility] Comment:Diabetes: >=200 mg/d L plus symptoms Blood Urea Nitrogen 10 8 - 18 mg/dL [facility] Creatinine 0.83 0.70 - 1.20 mg/dL [facility] Sodium 137 135 - 145 mmol/L [facility] Potassium 3.6 3.5 - 5.0 mmol/L [facility] Comment: Please note: ??Patients with WBC >100,000 may have falsely elevated Potassium levels. ??For accurate Potassium quantification in these patients send serum separator tube (gold top) for subsequent determinations. ??Contact the Clinical Chemistry Laboratory if there are any questions. Chloride 102 98 - 107 mmol/L [facility] Carbon Dioxide 24 22 - 31 mmol/L [facility] Anion Gap 11 5 - 15 mmol/L [facility] Calcium 8.9 8.5 - 10.5 mg/dL [facility] Est Glomerular Filtration Rate 67 >=60 mL/min/1. 73 m?? [facility] Comment: The eGFR was calculated using the CKD-EPI equation. As with all creatinine based estimates of kidney function, eGFR values calculated with the CKD-EPI equation are not accurate in patients with acute kidney failure, extremes of body mass or the acutely ill. [email or web address] [email or web address] CITYnkf eGFR 78 >=60 mL/min/1. 73 m?? [facility] Comment: The eGFR was calculated using the CKD-EPI equation. As with all creatinine based estimates of kidney function, eGFR values calculated with the CKD-EPI equation are not accurate in patients with acute kidney failure, extremes of body mass or the acutely ill. [email or web address] [email or web address] Blood specimen (specimen) 06/24/2020 8:40 AM EDT 06/24/2020 8:47 AM EDT Narrative Resulting Agency Comment Spec In Lab Esau Valentin MD CHEMISTRY ORDERAB LES [facility] [place] [address] documented in this encounter Visit Diagnoses Diagnosis [...] TIMES DAILY BEFORE MEALS, First dose on [facility] 06/24/20 at 1700, Until Discontinued, CORRECTION BOLUS [...] mg, Oral, EVERY EVENING, First dose on Sun06/24/20 at 1700, Until Discontinued, Routine Given 06/24/2020 4:34 PM EDT 20 mg sodium chloride 0.9% infusion 200 mL/hr, Intravenous, CONTINUOUS, Starting on Sun06/24/20 at 0930, Until Sun06/24/20 at 1420, Cath (Day of Procedure) New [...] 0822 (Given - Provider: Malika Champagne, LYLA) aspirin EC tablet 81 mg 81 mg, [...] Wynne RN) 0821 (Given - Provider: Malika Champagne, LYLA) insulin lispro (HumaLOG) VIAL injection 0-8 Units [...] Discontinued, Routine 0942 (Given - Provid er: Malkia Champagne RN) magnesium sulfate 2 g in sterile water 50 mL (COMPLETED) 2 g, Intravenous, ONCE, 1 dose, On Sun06/25/20 at 0730, Administer over 120 Minutes 0822 (New Bag - Provider: Malika Champagne RN)09 (Stopped - Provider: Malika Champagne RN - Comment: pt c/o burning in line) metoprolol tartrate (Lopressor) tablet 50 mg 50 mg, Oral, EVERY 6 HOURS SCHEDULED, First dose on Sun06/24/20 at 1800, Until Discontinued, Hold for SBP <90 or HR <50, Routine 1851 (Given - Provider: Diana Angel, LYLA) 0014 (Given - Provider: Sandy Wynne, LYLA)0535 (Given - Provider: Sandy Wynne, RN)1221 (Given - Provider: Malika Champagne, LYLA) pantoprazole [...] mg, Oral, EVERY EVENING, First dose on Sun06/24/20 at 1700, Until Discontinued, Routine 1634 (Given - Provider: Diana Angel RN) Continuous Medication Order 06/23/2020 06/24/2020 06/25/2020 sodium chloride 0.9% infusion (CANCELED) 200 mL/hr, Intravenous, CONTINUOUS, Starting on Sun06/24/20 at 0930, Until Sun06/24/20 at 1420, Cath (Day of Procedure) 0928 (New Bag - Provider: Francisca Warren RN) PRN Medication Order 06/23/2020 06/24/2020 06/25/2020 acetaminophen (Tylenol) tablet 650 mg 650 mg, Oral, EVERY 4 HOURS PRN, Starting on Sun06/24/20 at 1609, Until Sun06/25/20 at 1818, Pain, [...] Provider: Franklin Deras)1258 (Given - Provider: Edmund White, LYLA) lidocaine (XYLOCAINE) 10 mg/mL (1 %) injection [...] Provider: Lynette Cotter RN)1205 (Given - Provider: Frankiln Deras)1346 (Given - Provider: Martine Russo RN) [...] Routine documented in this encounter Care Teams Inpatient Services Director Relationship Specialty Start Date End Date Reshma Baig MD [address] [place] [address] PCP - General Family Medicine 11/08/18 06/23/21 documented as of this encounter
--- OUTSIDE RECORDS SUMMARY | 2024-04-28 15:25 | XMS_ITS | Encounter Summary ---
Author Organization [facility] [place] [address] Care Team Providers Care Field Pipelines Supervisor Name Role Phone Reshma Baig MD Primary Care Provider [phone] Reason for Visit * Reason Comments Establish Care * Consultation (Routine) - Closed Specialty Diagnoses / Procedures Referred By Malini carlson Referred To Contact General Surgery Diagnoses Cholecystitis Julianna Hendrix MD [facility] [place] [address] [facility] Gen Surgery [address] [place] [address] Referral ID Status Reason Start Date Expiration Date V isits Requested Visits Authorized [id number] Closed Consult, Test & Treat 04/26/2020 04/26/2021 1 1 Encounter Details Date Type Department Care Team (Latest Contact Info) Description 06/03/2020 2:00 PM EDT Office [place] [address] Hong Rosenthal MD [facility] [place] [address] Calculus of gallbladder with acute [...] – [facility]. Briefly, she was transferred from [facility] to [facility] [...] outpatient cardiology follow-up with Dr. Galindo in [facility] on 05/18 but she reports she has not seen a certified cytotechnologist. She has an appointment in our system with Dr Nagy 06/18. Objective: This is an age appropriate, telugu speaking, obese white female in [facility]. She is able to converse easily and appropriately while breathing RA. Gait around the office is observed to be wnl. Patient Vitals for the past 24 hrs: Temp Pulse Resp BP SpO2 10/08/20 1336 36.7 ??C (98 ??F) 50 18 [...] outpatient cardiology follow-up with Dr. Galindo in [facility] on 05/18 but she reports she has not seen a certified cytotechnologist. She has an appointment in our system [...] Hong Rosenthal MD. 06/03/2020 1:57 PM office [phone] fax [phone] documented in this encounter Plan of Treatment Scheduled Referrals Name Type Priority Associated Diagnoses Orde r Schedule Referral to General Surgery Outpatient Referral Routine Cholecystitis Ordered: 04/26/2020 documented as of this encounter Visit Diagnoses Diagnosis Calculus of gallbladder with acute cholecystitis without obstruction- Primary Calculus of gallbladder with acute cholecystitis, without mention of obstruction CAD S/P percutaneous coronary angioplasty Coronary atherosclerosis of seminole coronary artery documented in this encounter Care Teams Field Pipelines Supervisor Relationship Specialty Start Date End Date Reshma Baig MD [address] [place] [address] PCP - General Family Medicine 11/08/18 06/23/21 documented as of this encounter
--- OUTSIDE RECORDS SUMMARY | 2024-04-28 15:25 | XMS_ITS | Encounter Summary ---
Author Organization [place] [address] Care Team Providers Care Optometric Technician Name Role Phone Reshma Baig MD Primary Care Provider [phone] Reason for Referral * Diagnostic Test (Routine) - Closed Specialty Diagnoses / Procedures Referred By Malini carlson Referred To Contact Radiology Diagnoses Cholecystitis Procedures IR Biliary Tube Check/Change/Remove Denilson Vargas MD [facility] [place] [address] [place] [address] Referral ID Status Reason Start Date Expiration Date V isits Requested Visits Authorized [id number] Closed Specialty Service Requested 05/19/2020 11/16/2021 1 1 Encounter Details Date Type Department Care Team (Late st Contact Info) Description 05/19/2020 Orders [place] [address] Denilson Vargas MD [facility] [place] [address] Cholecystitis Social History Tobacco Use [...] The procedure was performed under fluoroscopic guidance. ??Load Tallier fluoroscopic images were obtained. ??Contrast was injected [...] unspecified documented in this encounter Care Teams Optometric Technician Relationship Specialty Start Date End Date Reshma Baig MD [address] [place] [address] PCP - General Family Medicine 11/08/18 06/23/21 documented as of this encounter
--- OUTSIDE RECORDS SUMMARY | 2024-04-28 15:25 | XMS_ITS | Encounter Summary ---
[place] [address] Care Team Providers Care Express Clerk Name Role Phone Reshma Baig MD Primary Care Provider [phone] Encounter Details Date Type Department Care Team (Late st Contact Info) Description 06/21/2020 [place] [phone] Francisca Eason, RN Social History Tobacco Use [...] on filedocumented in this encounter Care Teams Express Clerk Relationship Specialty Start Date End Date Reshma Baig MD [address] [place] [address] PCP - General Family Medicine 11/08/18 06/23/21 documented as of this encounter
--- OUTSIDE RECORDS SUMMARY | 2024-04-28 15:25 | XMS_ITS | Encounter Summary ---
Author Organization [facility] Address [facility] [place] [address] Care Team Providers Care Bellstand Attendant Name Role Phone Reshma Baig MD Primary Care Provider [phone] Encounter Details Date Type Department Care Team (Late st Contact Info) Description 06/04/2020 [place] [address] Homa Ross APRN [facility] [place] [address] Social History Tobacco Use Types Packs/Day Years [...] on filedocumented in this encounter Care Teams Bellstand Attendant Relationship Specialty Start Date End Date Reshma Baig MD [address] [place] [address] PCP - General Family Medicine 11/08/18 06/23/21 documented as of this encounter
--- OUTSIDE RECORDS SUMMARY | 2024-04-28 15:25 | XMS_ITS | Encounter Summary ---
Author Organization [facility] Address [facility] [place] [address] Care Team Providers Care Team Sports Sales Associate Name Role Phone Reshma Baig MD Primary Care Provider [phone] Reason for Visit * Reason Comments Follow-up Encounter Details Date Type Department Care Team (Latest Contact Info) Description 06/18/2020 2:00 PM EDT Office Visit [place] [address] Hong Rosenthal MD [facility] [place] [address] Calculus of gallbladder with acute cholecystitis without [...] after her recent hospitalization for cholecystitis at [facility]. Briefly, she was transferred from [facility] to [facility] 04/19/2020 with acute calculous cholecystitis. Given her [...] stools. She took her stool specimen to [facility] this week but has yet to hear back. Her stool is loose but trending toward normal. Reports her appetite is slightly improved. She denies infectious ROS. She is eating yogurt. She has an appointment with Dr Valentin/interventional cardiology today. Objective: This is an age appropriate, italian speaking, obese white female in [facility]. She is able to converse easily [...] stool is less loose. Stool studies at [facility] are pending. Her back pain persists [...] Hong Rosenthal MD. 06/18/2020 2:40 PM office [phone] fax [phone] documented in this encounter Plan of Treatment Not on file documented as of this encounter Visit Diagnoses Diagnosis Calculus of gallbladder with acute cholecystitis without obstruction- Primary Calculus of gallbladder with acute cholecystitis, without mention of obstruction documented in this encounter Care Teams Team Sports Sales Associate Relationship Specialty Start Date End Date Reshma Baig MD [address] [place] [address] PCP - General Family Medicine 11/08/18 06/23/21 documented as of this encounter
--- OUTSIDE RECORDS SUMMARY | 2024-04-28 15:25 | XMS_ITS | Encounter Summary ---
Author Organization [place] [address] Care Team Providers Care Rouge Miller Name Role Phone Reshma Baig MD Primary Care Provider [phone] Encounter Details Date Type Department Care Team (Late st Contact Info) Description 06/21/2020 Telephone Cardiology at [address] [phone] Ryan Marques, RN Social History Tobacco Use [...] EDT Addendum: Appreciate return call from Dr. Vlaentin. Confirms direct contact with Ms. Moody; relays preference for B[facility] after discussion. Note routed to [facility] for scheduling purposes. Dilan Marques RNpeoplesoft analyst Team Nurse [facility] * Telephone Encounter - Ryan [...] remaining available at her home number of [phone]). Dilan Marques, peoplesoft analyst Team Nurse [facility] documented in this encounter Plan of Treatment Not on file documented as of this encounter Visit Diagnoses Not on filedocumented in this encounter Care Teams Rouge Miller Relationship Specialty Start Date End Date Reshma Baig MD [address] [place] [address] PCP - General Family Medicine 11/08/18 06/23/21 documented as of this encounter
--- OUTSIDE RECORDS SUMMARY | 2024-04-28 15:25 | XMS_ITS | Encounter Summary ---
[place] [address] Care Team Providers Care Private Branch Exchange Repairer Name Role Phone Reshma Baig MD Primary Care Provider [phone] Reason for Visit * Reason Onset Date Comments Public Health Screening 06/21/2020 pre-op Encounter Details Date Type Department Care Team (Late st Contact Info) Description 06/21/2020 Telephone [place] [phone] Tran Melendez LPN Public Health Screening (pre-op) [...] Ordering provider: Sera Valentin MD Testing Facility: [place] Date of Testin/27 Time of Testing: TBD [...] on filedocumented in this encounter Care Teams Private Branch Exchange Repairer Relationship Specialty Start Date End Date Reshma Baig MD [address] [place] [address] PCP - General Family Medicine 11/08/18 06/23/21 documented as of this encounter
--- OUTSIDE RECORDS SUMMARY | 2024-04-28 15:25 | XMS_ITS | Encounter Summary ---
[place] [address] Care Team Providers Care Investment Underwriter Name Role Phone Reshma Baig MD Primary Care Provider [phone] Encounter Details Date Type Department Care Team (Late st Contact Info) Description 06/21/2020 [place] [address] Francisca Eason, RN COVID-19 ruled out Social [...] out documented in this encounter Care Teams Investment Underwriter Relationship Specialty Start Date End Date Reshma Baig MD [address] [place] [address] PCP - General Family Medicine 11/08/18 06/23/21 documented as of this encounter
--- OUTSIDE RECORDS SUMMARY | 2024-04-28 15:27 | XMS_ITS | Encounter Summary ---
Author Organization [facility] Address [facility] [place] [address] Care Team Providers Care Implementation Specialist Payroll Name Role Phone Reshma Baig MD Primary Care Provider [phone] Reason for Referral * Diagnostic Test (Routine) - Closed Specialty Diagnoses / Procedures Referred By Malini carlson Referred To Contact Radiology Diagnoses Cholecystitis Infection of cholecystostomy drain, initial encounter Hepatic abscess Type 2 diabetes mellitus with other circulatory complication, unspecified whether intermediate card tender insulin use Procedures IR Drain Check/Change/Remove Jos Collins DO [facility] [place] [address] [place] [address] Referral ID Status Reason Start Date Expiration Date V isits Requested Visits Authorized [id number] Closed Specialty Service Requested 04/28/2020 10/26/2021 1 1 * Consultation (Routine) - Closed Specialty Diagnoses / Procedures Referred By Malini carlson Referred To Contact General Surgery Diagnoses Cholecystitis Julianna Hendrix MD [facility] [place] [address] [facility] Gen Surgery [address] [place] [phone] Referral ID Status Reason Start Date Expiration Date V isits Requested Visits Authorized [id number] Closed Consult, Test & Treat 04/26/2020 04/26/2021 1 1 * Consultation (Routine) - Closed Specialty Diagnoses / Procedures Referred By Contact Referred To Contact Cardiac Rehabilitation Diagnoses Non-ST elevation myocardial infarction (NSTEMI) Abiodun Chun MD [facility] [place] [address] Cardiac Rehab, [facility] [address] [place] [address] [place] [address] Referral ID Status Reason Start Date Expiration Date V isits Requested Visits Authorized [id number] Closed Consult, Test & Treat Non DH PCP 04/26/2020 10/23/2020 36 36 Reason for Visit * Auth/Cert Specialty Diagnoses / Procedures Referred By Contac t Referred To Contact Diagnoses Cholecystitis Cholecystitis Procedures EMERGENCY IPI Referral ID Status Reason Start Date Expiration Date Visits Re quested Visits Authorized [id number] 1 1 Encounter Details Date Type Department Care Team (Latest Contact Info) Description 04/19/2020 1:57 PM EDT - 05/08/2020 1:35 PM EDT Hospital Encounter [address] [id number] Magdalene Lopez MD [facility] [place] [address] Hong Rosenthal MD [facility] [place] [address] Abiodun Chun MD [facility] [place] [address] Dale [place] [address] [place] [address] [place] [address] Aortic valve stenosis, etiology of cardiac valve disease unspecified; Hypertension, unspecified type; Non-ST elevation myocardial infarction (NSTEMI); Cholecystitis; Infection of cholecystostomy drain, initial encounter; Hepatic abscess; Type 2 diabetes mellitus with other circulatory complication, unspecified whether usp insulin use Discharge Disposition: Home with VNA [...] in the setting of melena and esophagitis, [id number] (11% risk) - Amiodarone 200mg BID for a total of 1 month (from 04/22 to 05/22); close cardiology follow-up scheduled for 05/18 - GI: EGD completed; recommending colonoscopy as outpatient Inpatient Provider Contact Information: For questions regarding this document or issues relating to this hospitalization on the Medical Service, please contact your inpatient physician through the [facility] Orthopedics Pediatric Physician . Issues afterhours and on weekends will [...] (records unavailable in eDH but reviewed by [facility] referring MD) who is [...] the subsequent days and she presented to [facility] ED yesterday (Sunday). There her tBili was noted to be 2.2 and is stable at 2.1 here. Patient transferred from [facility] on 04/19 for cardiac [...] Dr. Patel, patient was taken to the senior laboratory technician for RHC and evaluation. ?? In the senior laboratory technician she was found to have two [...] was then transferred back to the [facility]. On conference between the General Surgery [...] cardiology follow-up scheduled with Dr. Galindo in [facility] on May 18 at 1pm. Will need discharge summary faxed to the clinic at [phone]. #Esophagitis #Melena #Acute Blood loss anemia Ms. [...] unchanged Dose Details blood sugar diagnostic strips [facility] Commonly known as: OneTouch Ultra Test 1 each by Other route 3 times daily (before meals). Diag code E10.65 1 each Quantity: 300 each Refills: 3 Blood-Glucose Meter [facility] One Touch Ultra Brand, 250.02. Quantity: 1 [...] Time Provider Department Center 05/19/2020 10:30 AM [facility] IR ROOM 3 IR [facility] Rad 06/03/2020 10:10 AM [facility] IR ROOM 4 IR [facility] Rad 06/03/2020 2:00 PM Hong Rosenthal MD [facility] SURG [facility] You have a follow-up with cardiology scheduled for May [address] Galindo in [facility]. Your Primary Care Provider: Reshma Baig MD [phone] For questions regarding this document or issues relating to this hospitalization on the Medical Service, please contact your inpatient physician through the [facility] Orthopedics Pediatric Physician . Issues afterhours and on weekends will [...] or any other surface. Always put a predatory animal hunter on the end to keep clean. 11. If you drainage bags starts to have an odor, you can clean the bag after removing it from the tube. Turn the stopcock to off. Put on a predatory animal hunter to the end of the stopcock to [...] is during regular office hours, please call [phone]. If it is after regular office hours, or on weekends or holidays, please call [phone] and ask to speak to the Optics Engineer preparation supervisor for Interventional Radiology. XX You have received [...] is during regular office hours, please call [phone]. If it is after regular office hours, or on weekends or holidays, please call [phone] and ask to speak to the Optics Engineer preparation supervisor for Interventional Radiology. XX You have received [...] Provider Department Dept Phone 06/03/2020 10:10 AM [facility] IR ROOM 4 Radiology at [facility] Arrive at: 3 INTERVENTIONAL RADIOLOGY [phone] Please expect a call from a radiology nurse within 3 days of your exam, you will need to follow theinstructions given at that time. 06/03/2020 2:00 PM Hong Rosenthal MD General Surgery at [facility] Arrive at: [place] [address] [phone] 06/18/2020 3:00 PM Esau Rahman MD Cardiology at [facility] Arrive at: [place] [address] [phone] Future Orders Complete By Expires IR Drain Check/Change/Remove [[id number] Custom] 05/19/2020 07/28/2020 Process Instructions: Scheduling Instructions: Comments: Questions: Where will study be performed?: [facility] Radiology Reason for exam and clinical [...] ?: Aspirin Clopidogrel Referral to Cardiac Rehab [[id number] Custom] As directed Process Instructions: If no progress note charted, please enter Clinical details in comments. Scheduling Instructions: Questions: My question or request is: NSTEMI. Cardiac rehab at [facility] Referral to General Surgery [REF27 Custom] As directed Process Instructions: If no progress note charted, please enter Clinical details in comments. If you are requesting vascular access please answer the VAD questions Due to the OR limitations at the [facility], if you are considering surgery for this patient, and their BMI is greater than 50, please refer to [facility] (or a division other than [facility]). Scheduling Instructions: Questions: Are you seeking Vascular Access?: No My question or request is: Follow-up to discuss cholecystectomy. Patient is s/p perc arron tube placement, has tube study scheduled with IR for 06/03, needs appointment on this day. Referral to Home Health - at DISCHARGE [[id number] CPT(R)] As directed Process Instructions: Scheduling Instructions: [...] Nurse Practitioner, Clinical Nurse Specialist or Physician Gluing Pressman who is working directly with them, had [...] appropriate for home health services. Patient Location: [address] [place] [address] (home) Telephone Information: HOME Health Agency: [facility]. PHONE: [phone] FAX: [phone] RN: Assess cardiopulmonary assessment, vital signs, medication [...] PCP: Reshma Baig MD [address] [place] [address] Questions: Agency name and contact information: [facility] [...] or any other surface. Always put a predatory animal hunter on the end to keep clean. 11. If you drainage bags starts to have an odor, you can clean the bag after removing it from the tube. Turn the stopcock to off. Put on a predatory animal hunter to the end of the stopcock to [...] is during regular office hours, please call [phone]. If it is after regular office hours, or on weekends or holidays, please call [phone] and ask to speak to the Optics Engineer preparation supervisor for Interventional Radiology. XX You have received [...] is during regular office hours, please call [phone]. If it is after regular office hours, or on weekends or holidays, please call [phone] and ask to speak to the Optics Engineer preparation supervisor for Interventional Radiology. XX You have received [...] Time Provider Department Center 05/19/2020 10:30 AM [facility] IR ROOM 3 IR [facility] Rad 06/03/2020 10:10 AM [facility] IR ROOM 4 IR [facility] Rad 06/03/2020 2:00 PM Hong Rosenthal MD [facility] SURG [facility] You have a follow-up with cardiology scheduled for May [address] Galindo in [facility]. Your Primary Care Provider: Reshma Baig MD [phone] For questions regarding this document or issues relating to this hospitalization on the Medical Service, please contact your inpatient physician through the [facility] Orthopedics Pediatric Physician . Issues afterhours and on weekends will [...] 250.02. 1 each 0 12/02/2013 Lancets [facility] Use twice daily or as needed. 200 [...] spent >30 minutes (Day of Discharge Code 13817) involved in the final examination of the [...] main entrance with her son to home. [facility] planned for home care. Patient educated on [...] drain care. Questions answered. Medications sent to [facility] in [facility]. * Davon Leung MD - [...] Collection; Culture 04/28 Body Fluid Culture, Aerobic [[id number]] (Abnormal) Collected: 04/28/20 1000 Lab Status: Preliminary [...] Routine Diet: Daily Healthy Menu Choices/Cardiac diet ([facility]-Diet) CHO cont DVT ppx: SCDs Fluids: PO Access: PIV Dispo: Home today; with VNA Code: Full Code Davon Leung MD 05/08/2020 PGY-2, Internal Medicine Red Team - Pager [phone] Associated attestation - Kota Gonzales MD - [...] (records unavailable in eDH but reviewed by [facility] referring MD) who was [...] w/ severe (valve area 0.8) transferred to [facility] with acute cholecystitis. Unable to performcholecystectomy 2/2 [...] General surgery will sign off. Please page [phone] with any questions or concerns. Jeevan Black [...] Collection; Culture 04/28 Body Fluid Culture, Aerobic [[id number]] (Abnormal) Collected: 04/28/20 1000 Lab Status: Preliminary [...] remains in normal sinus on metoprolol and [id number] BID (end 05/22). AC plan to DAPT [...] Routine Diet: Daily Healthy Menu Choices/Cardiac diet ([facility]-Diet) CHO cont DVT ppx: SCDs Fluids: PO Access: PIV Dispo: pending Code: Full Code Wilner Esparza MD 05/07/2020 PGY-1, Internal Medicine Red Team - Pager [phone] Associated attestation - Milagros Velazquez MD - [...] is on the [facility] inpatient only procedure list (status C) due [...] Collection; Culture 04/28 Body Fluid Culture, Aerobic [[id number]] (Abnormal) Collected: 04/28/20 1000 Lab Status: Preliminary [...] bleeding, including the SIS drain. Will contact foster care case manager during IDR regarding assistance for [...] Routine Diet: Daily Healthy Menu Choices/Cardiac diet ([facility]-Diet) CHO cont DVT ppx: SCDs Fluids: PO Access: PIV Dispo: pending Code: Full Code Wilner Esparza MD 05/06/2020 PGY-1, Internal Medicine Red Team - Pager [phone] Associated attestation - Milagros Velazquez MD - [...] is on the [facility] inpatient only procedure list (status C) due [...] (records unavailable in eDH but reviewed by [facility] referring MD) who was [...] w/ severe (valve area 0.8) transferred to [facility] with acute cholecystitis. Unable to performcholecystectomy 2/2 [...] Collection; Culture 04/28 Body Fluid Culture, Aerobic [[id number]] (Abnormal) Collected: 04/28/20 1000 Lab Status: Preliminary [...] Routine Diet: Daily Healthy Menu Choices/Cardiac diet ([facility]-Diet) CHO cont DVT ppx: SCDs Fluids: PO Access: PIV Dispo: pending Code: Full Code Wilner Esparza MD 05/05/2020 PGY-1, Internal Medicine Red Team - Pager [phone] * Brooke Walters RN - 05/04/2020 1:03 [...] she is independent and active. 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 Is driving and able to walk good distances.? Patient is insured through: Primary Insurance: [employer] [place] Pay[place] [employer] [place] / Plan[place] / Product Type: *No Product type* / Secondary Insurance: N/A Prescription Coverage: yes ?? Plan for discharge is: Services Anticipated at Discharge: home health care - orders routed/pended with: ?? [facility] ?? PHONE: [phone] FAX: [phone] ?? Barriers to discharge: no barriers for a safe/appropriate discharge that are identified at this time. ?? Plan going forward: CM will continue to follow and assist with discharge planning and coordination of care as indicated. ?? * Wilner Esparza MD - 05/04/2020 8:48 AM EDT [facility] - Red Team Inpatient Progress Note ID: [...] Collection; Culture 04/28 Body Fluid Culture, Aerobic [[id number]] (Abnormal) Collected: 04/28/20 1000 Lab Status: Preliminary [...] Routine Diet: Daily Healthy Menu Choices/Cardiac diet ([facility]-Diet) CHO cont DVT ppx: SCDs Fluids: PO Access: PIV Dispo: pending Code: Full Code Wilner Esparza MD 05/04/2020 PGY-1, Internal Medicine Red Team - Pager [phone] Associated attestation - Milagros Velazquez MD - [...] is on the [facility] inpatient only procedure list (status C) due [...] (records unavailable in eDH but reviewed by [facility] referring MD) who was [...] w/ severe (valve area 0.8) transferred to [facility] with acute cholecystitis. Unable to performcholecystectomy 2/2 [...] (records unavailable in eDH but reviewed by [facility] referring MD) who was [...] w/ severe (valve area 0.8) transferred to [facility] with acute cholecystitis. Unable to performcholecystectomy 2/2 [...] Collection; Culture 04/28 Body Fluid Culture, Aerobic [[id number]] (Abnormal) Collected: 04/28/20 1000 Lab Status: Preliminary [...] Routine Diet: Daily Healthy Menu Choices/Cardiac diet ([facility]-Diet) CHO cont DVT prophylaxis: apixaban, ASA, plavix Fluids: PO Access: PIV Dispo: pending Code: Full Code Wilner Esparza MD 05/03/2020 PGY-1, Internal Medicine Red Team - Pager [phone] Associated attestation - Milagros Velazquez MD - [...] is on the [facility] inpatient only procedure list (status C) due [...] swelling or pain Labs: Recent Labs 05/02/20 0605/01/20 0504/30/20 0636 WBC 13.9* 13.5* 17.2* HGB 8.9* 9.2* 9.7* HCT 27.5* 28.6* 31.1* PLATELET 405* 372* 375* Recent Labs 05/02/20 0605/01/20 0504/30/20 0636 NA 139 136 135 K [...] Collection; Culture 04/28 Body Fluid Culture, Aerobic [[id number]] (Abnormal) Collected: 04/28/20 1000 Lab Status: Preliminary [...] s/p perq 04/22 - Culture klebsiella - raron tube growing klebsiella - cholecystectomy in 6 [...] Routine Diet: Daily Healthy Menu Choices/Cardiac diet ([facility]-Diet) CHO cont DVT prophylaxis: apixaban, ASA, plavix Fluids: PO Access: PIV Dispo: pending Code: Full Code Wilner Esparza MD 05/02/2020 PGY-1, Internal Medicine Red Team - Pager [phone] Associated attestation - Milagros Velazquez MD - [...] (records unavailable in eDH but reviewed by [facility] referring MD) who was [...] w/ severe (valve area 0.8) transferred to [facility] with acute cholecystitis. Unable to performcholecystectomy 2/2 [...] weeks. Please do not hesitate to page [phone] with any questions or concerns. Jeevan Black [...] Orders Diet Daily Healthy Menu Choices/Cardiac diet ([facility]-Diet) 60/60/75 CHO counting level 2 Frequency: Effective [...] consulted in the interim. SULEMAN Lopes Pager: [phone] * Davon Leung MD - 05/01/2020 8:21 AM EDT [facility] Red Team Inpatient Progress Note ID: Shannan [...] on metoprolol and amiodarone - Lasix and Chelsy held since 04/28 for FORREST - No [...] Collection; Culture 04/28 Body Fluid Culture, Aerobic [[id number]] (Abnormal) Collected: 04/28/20 1000 Lab Status: Preliminary [...] though still overall mild, appears pre-renal even [id number] LR yesterday. Will give 500cc gently today. [...] her on Plavix and apixaban. Will contact [facility] moving forward with with this plan. [...] Routine Diet: Daily Healthy Menu Choices/Cardiac diet ([facility]-Diet) CHO cont DVT prophylaxis: apixaban, ASA, plavix Fluids: PO Access: PIV Dispo: pending Code: Full Code Davon Leung MD 05/01/2020 PGY-2, Internal Medicine Red Team - Pager [phone] Associated attestation - Milagros Velazquez MD - [...] is on the [facility] inpatient only procedure list (status C) due [...] and cooperative with care. Rings appropriately. She wilyl SBA. Drain dressings remain CDI. Output as [...] indirect monitoring]: Purposeful rounding, room near nurses [facility], [facility]. Patient-specific fall prevention interventions for sensory [...] Avila, DO Infectious Diseases Fellow- PGY4 Pager: [phone] 04/30/2020 1:37 PM Associated attestation - Harris [...] Discharge: None Electronically signed: Hong Zavala RN, Computing Consultant Pgr: [phone] 04/30/2020 10:23 AM * Wilner [...] 0.80 GLUCOSE 166 152 149 Recent Labs 04/30/2036 04/29/20 0417 04/28/20 0405 CALCIUM 8.5 8.5 [...] s/p percutaneous cholecystostomy and percutaneous liver abscess ISS drain placement. The patient is now hemodynamically [...] though still overall mild, appears pre-renal even [id number] LR yesterday. Will give 500cc gently today. [...] her on Plavix and apixaban. Will contact [employer] moving forward with with this plan. # [...] Routine Diet: Daily Healthy Menu Choices/Cardiac diet ([facility]-Diet) CHO cont DVT prophylaxis: apixaban Fluids: PO Access: PIV Dispo: pending Code: Full Code Wilner Esparza MD 04/30/2020 PGY-1, Internal Medicine Red Team - Pager [phone] Associated attestation - Dale Gonzáles MD - [...] (records unavailable in eDH but reviewed by [facility] referring MD) who was [...] w/ severe (valve area 0.8) transferred to [facility] with acute cholecystitis. Unable to performcholecystectomy 2/2 [...] (records unavailable in eDH but reviewed by [facility] referring MD) who was [...] w/ severe (valve area 0.8) transferred to [facility] with acute cholecystitis. Unable to performcholecystectomy 2/2 [...] Esparza MD - 04/29/2020 8:21 AM EDT [facility] - Red Team Inpatient Progress Note ID: [...] on Plavix and apixaban. [facility] forward with with this plan. # [...] Routine Diet: Daily Healthy Menu Choices/Cardiac diet ([facility]-Diet) CHO cont DVT prophylaxis: apixaban Fluids: PO Access: PIV Dispo: transfer to 4600 Code: Full Code Wilner Esparza MD 04/29/2020 PGY-1, Internal Medicine Red Team - Pager [phone] Associated attestation - Dale Gonzáles MD - [...] is on the [facility] inpatient only procedure list (status C) due [...] she is independent and active. 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 Is driving and able to walk good distances. Patient is insured through: Primary Insurance: [employer] [place] Payor[place] [employer] [place] / Plan[place]HP / Product Type: *No Product type* / Secondary Insurance: N/A Prescription Coverage: yes Plan for discharge is: Services Anticipated at Discharge: home health care - orders routed/pended [facility]. PHONE: [phone] FAX: [phone] Barriers to discharge: as listed above Plan going forward: CM will continue to follow and assist with discharge planning and coordination of care as indicated. Chioma Vann RN, MSN Computing Consultant - Cardiology Office of Care Management Pager: [phone] Work * Bobbi Fernandez RN - 04/28/2020 8:28 AM EDT [facility] Name: SHANNAN CHAUDHARY Date of : 1940 AGE: 79 y.o. Address: [address] [place] [address] (home) Mobile: Telephone Information: Referring Provider: Bethany [...] days held): None (04/28/20753) Planned access site: [facility] (04/28/20753) Position: Supine (04/28/20753) Cytopathology presence needed: No (04/28/20753) Consent: Pending (04/28/20 7780) No Known Allergies Pertinent PMH: Patient Active [...] (records unavailable in eDH but reviewed by [facility] referring MD) who was [...] 31.5* PLATELET 421* 422* 398* Recent Labs 04/28/2040404/27/2044004/26/20441 NA 137 138 142 K 3.5 3.5 3.3* CL 105 103 107 CO2 21* 23 22 BUN 16 12 14 CREATININE 0.80 0.63* 0.67* GLUCOSE 149 167 172 No results for input(s): PT, INR in the last 72 hours. Invalid input(s): PTT Assessment/Plan: 79y F w/ severe (valve area 0.8) transferred to [facility] with acute cholecystitis. Unable to performcholecystectomy 2/2 [...] AF who presented as a transfer from [facility] for acute cholecystitis with [...] 14 CREATININE 0.80 0.63* 0.67* Recent Labs 09/02/20 0405 09/01/20 0441 08/31/20 0442 AST 12 12 14 ALT 12 [...] Internal Medicine PGY1 Cardiology M1-S2 Team Pager [phone] Associated attestation - Abiodun Chun MD - [...] who is concerned about showering at home. [facility] has been pended for RN only. The orders have been signed, so I am unable to adjust them. I have asked Dr Hendrix throughsecure chat who signed them to add choly tube care and OT to assess home safety, ADL's, IADL's and include CONSERVATION EDUCATOR if appropriate. Will be transported via private car with family. Patient is insured through [employer], however states she has Medicare A secondary-Due [...] (records unavailable in eDH but reviewed by [facility] referring MD) who was [...] w/ severe (valve area 0.8) transferred to [facility] with acute cholecystitis. Unable to performcholecystectomy 2/2 recent PCI with two stents requiring DAPT x 6 weeks. Now s/p cholecystostomy tube and appears to be recovering well. She is tolerating a regular diet and denies pain in the RUQ or anywhere else. Her WBC has increased today to 15. Recommending CT abdomen and pelvis with contrast.We will continue to follow. Please page [phone] with any questions or concerns. Jeevan Black [...] Orders Diet Daily Healthy Menu Choices/Cardiac diet ([facility]-Diet) Frequency: Effective Now Number of Occurrences: Until [...] consulted in the interim. SULEMAN Lopes Pager: [phone] * Julianna Hendrix MD - 04/27/2020 7:41 [...] AF who presented as a transfer from [facility] for acute cholecystitis with [...] tube growing Klebsiella ornithinolytica, pansensitive s/p zosyn (824/-/) - Leukocytosis increased to 15.1 from 13.9 [...] Misc Diet: Daily Healthy Menu Choices/Cardiac diet ([facility]-Diet) DVT ppx: SQH GI ppx: Protonix PT/OT consult ?? Code Status:Attempt Cardiopulmonary Resuscitation - Inpatient ?? Dispo- floor Julianna Hendrix MD Internal Medicine PGY1 Cardiology M1-S2 Team Pager [phone] Associated attestation - Abiodun Chun MD - [...] (records unavailable in eDH but reviewed by [facility] referring MD) who was [...] w/ severe (valve area 0.8) transferred to [facility] with acute cholecystitis. Unable to performcholecystectomy 2/2 [...] We will continue to follow. Please page [phone] with any questions or concerns. Jeevan Black [...] on repeat CTLis Garrison MD * Chioma Vann, RN - 04/26/2020 11:38 AM EDT CARE MANAGEMENT DISCHARGE NOTE Chart reviewed, care reviewed with primary team and at interdisciplinary rounds. Patient is medically ready for discharge to home with VNA services. [facility] PHONE: [phone] FAX: [phone] Will be transported via son Darwin. This plan was formulated with input from patient, family and team. All are in agreement with plan. Chioma Vann RN, MSN Computing Consultant - Cardiology Office of Care Management Pager: [phone] Work * Julianna Hendrix MD - 04/26/2020 [...] AF who presented as a transfer from [facility] for acute cholecystitis with [...] in this interval not displayed. Recent Labs 04/26/2044104/25/20 0505 04/24/20 0458 04/20/20 0243 CALCIUM 8.6 [...] Misc Diet: Daily Healthy Menu Choices/Cardiac diet ([facility]-Diet) DVT ppx: SQH GI ppx: Protonix PT/OT consult ?? Code Status:Attempt Cardiopulmonary Resuscitation - Inpatient ?? Dispo- floor Julianna Hendrix MD Internal Medicine PGY1 Cardiology M1-S2 Team Pager [phone] Associated attestation - Abiodun Chun MD - [...] (records unavailable in eDH but reviewed by [facility] referring MD) who was [...] w/ severe (valve area 0.8) transferred to [facility] with acute cholecystitis. Unable to performcholecystectomy 2/2 [...] of AF who presented??as a transfer from [facility] for acute cholecystitis with [...] Cholecystostomy Tube Placement 04/22/2020 Jos Collins, DO [facility] INTERVENTIONL RAD Social History: Home set-up: lives alone in a 3 story home but is able to stay on the 1st floor, laundry is in the basement but granddaughter can help. 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 Equipment at home: quad walker, and cane. 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 Pt limited this date by [...] Minutes, Physical Therapy: 29(evaluation ) Isi Kingston, [facility] Pager: [phone] Physical Therapy Inpatient Rehabilitation Department Associated attestation - Esau Caicedo PT - 04/25/2020 2:42 PM EDT Patient status, treatment interventions, and goals discussed with student. I am in agreement with all details and associated flowsheet rows as documented and was present for all aspects of the patient treatment session. Treatment session performed and note written with this poem writer. Please do not hesitate to contact this poem writer with any questions, thank you. Esau Isaac, PT Pager #[phone] Inpatient Rehabilitation * Hong Levi MD - [...] AF who presented as a transfer from [facility] for acute cholecystitis with [...] Misc Diet: Daily Healthy Menu Choices/Cardiac diet ([facility]-Diet) DVT ppx: SQH GI ppx: Protonix PT/OT consult ?? Code Status:Attempt Cardiopulmonary Resuscitation - Inpatient ?? Dispo- floor, possible discharge tomorrow Hong Levi MD Internal Medicine PGY3 Cardiology M1-S2 Team Pager [phone] Associated attestation - Abiodun Chun MD - [...] AF who presented as a transfer from [facility] for acute cholecystitis with [...] 0458 04/23/20 0225 04/22/20 0350 04/20/20 0243 CALCIUM 8.7 [...] tomorrow Julianna Hendrix MD PGY-1 Team Pager [phone] Associated attestation - Abiodun Chun MD - [...] 04/19/2020 Diet: Daily Healthy Menu Choices/Cardiac diet ([facility]-Diet) Code: Attempt Cardiopulmonary Resuscitation - Inpatient Room: CV21/CV21-A ID: Shannan Chaudhary ( ) is a 79 y.o. female with a history of HTN, HLD, severe and possible afib, who was transferred from [facility] to the SICU for acute cholecystitis. Her course was complicated by NSTEMI, afib with RVR causing hypotension in the setting of , hypoxic respiratory failure with increasing O2 requirements which prompted heart cath and transfer to [facility] care. Operative Procedures: 04/21/2020 Procedure(s): CARDIAC [...] add comments as necessary): abd/pelvis; Sending Institution [facility]; Date of exam 20200418; [...] Surgery -Diet: Daily Healthy Menu Choices/Cardiac diet ([facility]-Diet). /FEN: Keep roque, monitor UOP. K of [...] (records unavailable in eDH but reviewed by [facility] referring MD) who is [...] w/ severe (valve area 0.8) transferred to [facility] with acute cholecystitis. She has undergonePCI of [...] AF who presented as a transfer from [facility] for acute cholecystitis with [...] floor Julianna Hendrix MD PGY-1 Team Pager [phone] Associated attestation - Abiodun Chun MD - [...] (records unavailable in eDH but reviewed by [facility] referring MD) who is [...] w/ severe (valve area 0.8) transferred to [facility] with acute cholecystitis. She has undergonePCI of [...] Code: Attempt Cardiopulmonary Resuscitation - Inpatient Room: CV21/[facility] ID: Shannan Chaudhary ( ) is a 79 y.o. female with a history of HTN, HLD, severe and possible afib, who was transferred from [facility] to the SICU for acute cholecystitis. Her course was complicated by NSTEMI, afib with RVR causing hypotension in the setting of , hypoxic respiratory failure with increasing O2 requirements which prompted heart cath and transfer to [facility] care. Operative Procedures: 04/21/2020 Procedure(s): CARDIAC [...] add comments as necessary): abd/pelvis; Sending Institution [facility]; Date of exam 20200418; [...] to the planned procedure. Hand Hygiene: The sales and service consultant did perform hand hygiene prior to arterial [...] DO - 04/22/2020 8:10 AM EDT Interventional Loan Administrator Note 79 year old female with moderate [...] plavix. Cardiac rehab consult in place. Sandy Camargo, Interventional Loan Administrator * Darwin Connors MD - 04/22/2020 7:12 AM EDT Inpatient Cardiology Progress Note Hospital Day 3 days Active Hospital Problems Diagnosis ??? 79 yo F with DM and HTN--- txf from [facility] with cholecystitis, AF with RVR, hypoxia, and concern for severe . Cath showed not severe, high grade ostial RCA stented, AF converted spontaneously ??? Atrial fibrillation--- paroxysmal ??? Cholecystitis Resolved Hospital Problems No resolved problems to display. Active Hospital Problems Diagnosis ??? 79 yo F with DM and HTN--- txf from [facility] with cholecystitis, AF with RVR, hypoxia, and concern for severe . Cath showed not severe, high grade ostial RCA stented, AF converted spontaneously ??? Atrial fibrillation--- paroxysmal ??? Cholecystitis Resolved Hospital Problems No resolved problems to display. ID: Ms. Chaudhary is a 79F with a PMH of HTN, HLD, DM, possible history of AF who presented as a transfer from [facility] for acute cholecystitis with [...] care Julianna Hendrix MD PGY-1 Team Pager [phone] Cardiology Attending Note I have seen and [...] (cmH20): 6 FiO2 (%): (S) 100 %(for senior laboratory technician procedure) NIV Measurements: Resp: 23 Mve: [...] Weaned FiO2 to 35%. Brought pt to supervisor labor gang @ 1530 on NRB. Placed on BiPAP [...] Events: TTE yesterday, decision to go to senior laboratory technician today with surgical plan pending outcome [...] -- No results for input(s): PHART, PO2ART, XIT5SXM, LACTATEART, BEART in the last 72 hours. [...] -- No results for input(s): PHART, PO2ART, YWM3IBH, LACTATEART, BEART in the last 72 hours. [...] (records unavailable in eDH but reviewed by [facility] referring MD) who is [...] w/ severe (valve area 0.8) transferred to [facility] with acute cholecystitis undergoing cardiacwork-up/optimization for potential [...] all questions were answered. Discussed with Dr Garrison/[facility] Cardiology input/assistance greatly appreciated Hong Rosenthal [...] bedside from 0220 through transfer to [facility]. Life safety paged for assistance when BP began to decline rapidly. See life safety note for details. Critical care also at beside. Roxy Cordon RN * Sophia Ellington RN - 04/20/2020 6:58 AM EDT [facility]. HR afib 160s, arden running @ 50. CCS at bedside performing bedside echo, around 0600 pt. Self converted into NSR 80- 90s and arden weaned off. * Tiesha Morgan MD - 04/20/2020 5:07 AM EDT Patient with aortic stenosis with valve area 0.8 (no echo result documented) and acute cholecystitis, transferred [place] [facility] [place]. Plan was cardiology pre-op [...] 3999 at bedside for eval. Discussed with medical laboratory manager, who recommended PO metop tartrate 25 mg [...] 04/19/2020 1:45 PM EDT Patient arrived from [facility] via ambulance. Received report [...] from the original note were not included. [facility] Medicine - Admission History & Physical - RED Team, Pager [phone] Chief Complaint: liver abscess History of Present Illness: Shannan Chaudhary is a 79 y.o. female with history of IDDM last A1c 8.5(03/2020), HTN, HLD, moderate-severe who presents with cholecystitis. The patient first began to have a feeling of pain in her right upper quadrant on 04/12, and presented to [facility] ED on 04/18 and found to have a TBili of 2.2 and WBC of 17; alk phos 148, AST/ALT unremarkable, Cr 1.37. Pt CTAP from [facility] revealed a hydropic gallbladder [...] on a nitro drip and transferred to [facility]. 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 Pt previously had been fully [...] mL 2 ??? blood sugar diagnostic strips (KydaemosTOUCH ULTRA TEST) Strip 1 each by Other [...] NIGHTLY 90 tablet 0 ??? Blood-Glucose Meter [facility] One Touch Ultra Brand, 250.02. 1 each [...] on phone: None Gets together: None Attends temple service: None Active member of club or [...] Body Fluid Culture, Aerobic & Anaerobic Fluid [[id number]] Collected: 04/28/20 1000 Lab Status: In process Specimen: Fluid Updated: 04/28/20 1124 Body Fluid Culture, Aerobic [[id number]] Collected: 04/28/20 1000 Lab Status: Preliminary result Specimen: Fluid Updated: 04/28/20 1124 Gram Stain -- Few Neutrophils seen No microorganisms seen. Body Fluid Culture, Aerobic & Anaerobic Bile [[id number]] (Abnormal) Collected: 04/22/20 1550 Lab Status: Final result Specimen: Bile Updated: 04/26/20 1544 Body Fluid Culture, Aerobic [[id number]] (Abnormal) (Susceptibility) Collected: 04/22/20 1550 Lab Status: [...] using in critically ill patients. Anaerobic Culture [[id number]] Collected: 04/22/20 1550 Lab Status: Final result [...] Routine Diet: Daily Healthy Menu Choices/Cardiac diet ([facility]-Diet) CHO cont DVT prophylaxis: apixaban Fluids: PO Access: PIV Dispo: transfer to 4600 Code: Attempt Cardiopulmonary Resuscitation - Inpatient Wilner Esparza MD PGY-1, Internal Medicine 04/28/2020 Red Team Pager - [phone] Associated attestation - Dale Gonzáles MD - [...] is on the [facility] inpatient only procedure list (status C) due [...] is a 79 y.o. female transferred to [facility] for acute cholecystitis and subsequently found to [...] Cholecystostomy Tube Placement 04/22/2020 Jos Collins, DO [facility] INTERVENTIONL RAD Medications: No current facility-administered [...] file Gets together: Not on file Attends temple service: Not on file Active member of [...] procedure) Assessment: 79 y.o. female transferred to [facility] for acute cholecystitis and subsequently found to [...] is a 79 y.o. female transferred to [facility] for acute cholecystitis and subsequently found to [...] Cholecystostomy Tube Placement 04/22/2020 Jos Collins, DO [facility] INTERVENTIONL RAD Medications: No current facility-administered [...] file Gets together: Not on file Attends temple service: Not on file Active member of [...] procedure) Assessment: 79 y.o. female transferred to [facility] for acute cholecystitis and subsequently found to [...] is a 79 y.o. female transferred to [facility] for acute cholecystitis and subsequently found to [...] diabetes mellitus without mention of complication, uncontrolled [id number] ??? Hypertension I10 ??? Hyperlipidemia E78.5 ??? [...] mL 2 ??? blood sugar diagnostic strips (plistaUCH ULTRA TEST) Strip 1 each by Other [...] Brand, 250.02. 1 each 0 ??? Lancets [facility] Use twice daily or as needed. 200 [...] file Gets together: Not on file Attends temple service: Not on file Active member of [...] is a 79 y.o. female transferred to [facility] for acute cholecystitis and subsequently found to [...] PCP: Reshma Baig MD PCP phone #: [phone] ID/Chief Complaint: Ms. Chaudhary is a 79F with a PMH of HTN, HLD, DM, possible history of AF who presented as a [facility] for acute cholecystitis with a course complicated by afib with RVR and hypotension now transferring to the Cardiology service due to severe (CORINE 0.8 at OSH) with consideration of direct i ntervention. History of Present Illness: Patient transferred from [facility] on 04/19 for cardiac [...] Dr. Patel, patient was taken to the senior laboratory technician for RHC and evaluation. In the senior laboratory technician she was found to have two [...] was then transferred back to the [facility]. On conference between the General Surgery [...] Brand, 250.02. 1 each 0 ??? Lancets [facility] Use twice daily or as needed. 200 [...] number below. Electronically signed by: Harris Shepard [facility] ([phone]), at 04/19/2020 4:27 PM XR Chest One [...] number below. Electronically signed by: Dylan Kinsey [facility] ([phone]), at 04/21/2020 6:22 AM CXR compared to [...] explanation seems to be that when Ms. Neena flipped into afib RVR, her EF dropped [...] service to be determined by course Justus S Sayood, MD, PGY-1 Cardiology M1-S2, Team Pager [phone] 04/21/2020 Cardiology Attending Note I have seen [...] type 2 DM who was admitted to [facility] due to cholecystitis with plan for cardiology [...] Brand, 250.02. 1 each 0 ??? Lancets [facility] Use twice daily or as needed. 200 [...] file Gets together: Not on file Attends temple service: Not on file Active member of [...] Lopez MD - 04/19/2020 5:24 PM EDT [facility] Acute Care Surgery Admission H&P History of Present Illness: Shannan Chaudhary is a 79 y.o. female with PMH IDDM and reported aorticstenosis with valve area 0.8 (records unavailable in eDH but reviewed by [facility] referring MD) who is [...] the subsequent days and she presented to [facility] ED yesterday (Sunday). There [...] file Gets together: Not on file Attends temple service: Not on file Active member of [...] OSH with cholecystitis who was transferred to [facility] due to increased cardiac risk associated with [...] last Sunday, was noted on imaging at [facility] to have a hydropic [...] (Interventions Implemented as Appropriate) 04/19/20 18104/20/20 1537 05/08/20111 Discharge Needs Assessment Concerns To [...] guard placed. Patient had full bath with FIRE CAPTAIN. Left IV dressing changed. Patient went for [...] place, time and situation. Pleasant. Drains managed, ISS flushed, limited output. Voiding well. No complaints. [...] Outcome: Ongoing (Interventions Implemented as Appropriate) 05/01/2059 05/03/20 08 Coping/Psychosocial Plan Of Care Reviewed With [...] Outcome: Ongoing (Interventions Implemented as Appropriate) 05/01/2059 05/02/202028 Coping/Psychosocial Plan Of Care Reviewed With -- patient Plan of Care Review Progress progress toward functional goals as expected -- OUTCOME EVALUATION NOTE: ?? OUTCOME SUMMARY: Shannan Tito Chaudhary's vital signs stable. Patient is Alert. Oriented to person, place, time and situation. Pleasant. Drains managed, ISS flushed, limited output. Voiding well. No complaints. [...] Surveillance [continuous indirect monitoring]: Room near nurses [facility] Patient-specific fall prevention interventions for sensory [...] and heme + results. Pt NPO at [facility] for EGD tmr. Pt denies abdominal pain, [...] file Gets together: Not on file Attends temple service: Not on file Active member of [...] Dr. Graf. Mauro Patel MD Gastroenterology Fellow #[id number] Attending Addendum: I interviewed and examined the patient with Dr. Patel on rounds. I confirm the history and sanchez physical findings outlined in this note. The assessment and plan were formulated in discussion with me at the time of this encounter, and I agree with them as documented. Brigitte Graf MD Gastroenterology and hepatology Pager: [phone] * Plan of Care - Jeevan Curiel RN - 05/02/2020 1:36 AM EDT Problem: Patient Care Overview Goal: Plan of Care Review Outcome: Ongoing (Interventions Implemented as Appropriate) 05/01/2059 05/01/202018 Coping/Psychosocial Plan Of Care Reviewed With -- patient Plan of Care Review Progress progress toward functional goals as expected -- OUTCOME EVALUATION NOTE: OUTCOME SUMMARY: Shannan Francis Neena's vital signs stable. Patient is Alert. Oriented [...] [continuous indirect monitoring]: Room near nurses station, [facility] Patient-specific fall prevention interventions for sensory [...] -- 0 Score -- -- 35 OTHER [place] Fall Risk -- -- Med Restraint Interventions [...] (Interventions Implemented as Appropriate) 05/01/20 0559 05/01/20 09 Coping/Psychosocial Plan Of Care Reviewed With [...] Outcome: Ongoing (Interventions Implemented as Appropriate) 04/29/20 6917 Coping/Psychosocial Plan Of Care Reviewed With patient [...] Outcome: Ongoing (Interventions Implemented as Appropriate) 04/28/20202904/29/20212904/29/20 2200 Daily Care Interventions Self-Care Promotion independence encouraged [...] CONSULTATION NOTE Patient ID: Shannan Chaudhary Room: [address] [place] [address] Reason for Consult: liver abcess Consulting Service: Hospital Medicine Consulting Attending: Dale Dash MD Admission Date: 04/19/2020 History of Present Illness: 79 y.o. female with a history of DM2 (A1C 8.5%), severe who was admitted for sepsis secondary tocholecystitis. Due to her severe she was not a surgical candidate at her institution so was sent to [facility] for evaluation. She underwent pre-operative cardiac angiogram [...] DRAINAGE 04/28/2020 CT Guided Drain Peritoneal 04/28/2020 [facility] RAD CAT SCAN ??? HYSTERECTOMY, VAGINAL ??? IR CHOLECYSTOSTOMY TUBE PLACEMENT 04/22/2020 IR Cholecystostomy Tube Placement 04/22/2020 Jos Collins, DO [facility] INTERVENTIONL RAD Medications: ??? apixaban (Eliquis) [...] immunocompromising conditions Social History: Lives alone in [place], [place] but has family members who live [...] Body Fluid Culture, Aerobic & Anaerobic Fluid [[id number]] (Abnormal) Collected: 04/28/20 1000 Lab Status: Preliminary result Specimen: Fluid Updated: 04/29/20 1409 Body Fluid Culture, Aerobic [[id number]] (Abnormal) Collected: 04/28/20 1000 Lab Status: Preliminary result Specimen: Fluid Updated: 04/29/20 1316 Body Fluid Culture One colony of Raoultella ornithinolytica (Klebsiella ornithinolytica) Gram Stain -- Few Neutrophils seen No microorganisms seen. Anaerobic Culture [[id number]] Collected: 04/28/20 1000 Lab Status: Preliminary result Specimen: Fluid Updated: 04/29/20 1409 Anaerobic Culture No anaerobic organisms isolated to date Body Fluid Culture, Aerobic & Anaerobic Bile [[id number]] (Abnormal) Collected: 04/22/20 1550 Lab Status: Final result Specimen: Bile Updated: 04/26/20 1544 Body Fluid Culture, Aerobic [[id number]] (Abnormal) (Susceptibility) Collected: 04/22/20 1550 Lab Status: [...] using in critically ill patients. Anaerobic Culture [[id number]] Collected: 04/22/20 1550 Lab Status: Final result [...] Avila DO Infectious Diseases Fellow- PGY4 Pager: [phone] 04/29/2020 6:23 PM Associated attestation - Harris [...] type 2 DM who was transferred to [facility] on 04/19/20 for cardiology evaluation and surgical planning in the setting of acute cholecystitis. Reviewing her hospital course, she developed Afib with RVR complicated by hypotension and hypoxic respiratory failure on 04/20/20, she was taken to the senior laboratory technician on 04/21/20 whereshe had a RCA [...] arabella-hepatic drain today and has a SIS drian. Patient's peritoneal drain continurs to put out [...] docs. Abd dressing c/d/i. Hypertensive throughout shift sayood aware. No other significant events. Will continue [...] Outcome: Ongoing (Interventions Implemented as Appropriate) 04/26/20 7595 Coping/Psychosocial Plan Of Care Reviewed With patient [...] in an outpatient cardiac rehabilitation program at [facility] was discussed. Patient agrees [...] Goal: Discharge Needs Assessment 04/19/20 1810 04/20/20 153 Discharge Needs Assessment Concerns To Be Addressed [...] are placed. Patient requests referral to :: [facility] PHONE: [phone] FAX: [phone] Expected date of discharge:next 24-48 hours Referral routed to the Core Winding Operator for matching with agency/vendor and to provide any required information. * Op Note - Esau Rahman MD - 04/21/2020 6:14 PM EDT [facility] Operative Note Patient Name: Shannan Chaudhary : [id number] MR#: [id number] Case Date: 04/21/2020 Surgeon: Surgeon(s) and Role: * Esau Rahman MD - Primary * Sandy Camargo DO - Fellow Preoperative diagnosis: ?CAD Postoperative diagnosis: Successful PCI with 2 SYNERGY stents Note cardiac output normal, and mean gradient across aortic valve 20 mmHg ASA loaded prior to case, plavix 600 mg load given in the senior laboratory technician I spoke with Dr Garrison. Tentative [...] evident early complications. Results discussed with referring mechanical engineer, service mechanical engineer, and with the patient and theirfamily. A [...] is fair OUTCOME EVALUATION NOTE: OUTCOME SUMMARY: Cafeteria Aide assumed care of pt at 07:30. Pt [...] Esau Rahman MD MPH Structural Interventional Cardiology [place] [id number] , #5 Overall clinical summary: ?? This is a 79 y.o. year old female referred by Dr. Lisbeth Cain and Dr. oJs Garrison for evaluation of preoperative risk in [...] to admission. She had not seen a mechanical engineer previously. Pertinent past history: Active Hospital Problems [...] tablet 37.5 mg 37.5 mg Oral Q6H [facility] Carol Reyna MD ??? sodium chloride 0.9 [...] injection 5,000 Units 5,000 Units Subcutaneous Q8H [facility] Jayashree Keenan MD 5,000 Units at 04/20/20 [...] questions, please feel free to contact me: [phone] #5 (medical office secretary Bert Ortega, and he will have me paged) or [email or web address] Chaudhary 04/20/2020 Referring Providers: MD Davy Mcdonaldye, Bethany Francis MD [address] [place] [address] [address] ESAU RAHMAN MD 04/20/2020 TESTING: Recent Results [...] QTC Calculated (Bezet) 474 ms Calculated P [place] 59 degrees Calculated R [place] 26 degrees Calculated T [place] 2 degrees INTERPRETATION Normal sinus rhythm Right bundle branch block Abnormal ECG No previous ECGs available POCT Glucose Result Value Ref Range POC Glucose 112 65 - 199 mg/dL EKG 12 Lead Result Value Ref Range Ventricular rate 168 BPM Atrial Rate 174 BPM QRS Duration 128 ms Q-T Interval 288 ms QTC Calculated (Bezet) 481 ms Calculated R [place] 82 degrees Calculated T [place] -18 degrees INTERPRETATION Atrial fibrillation with rapid [...] mg/dL Lactate, whole blood, send to lab ([facility]) Result Value Ref Range Lactate WB 1.6 0.5 - 2.2 mmol/L POCT Glucose Result Value Ref Range POC Glucose 128 65 - 199 mg/dL Echocardiogram Transthoracic([facility]) Result Value Ref Range EF 59 Troponin Result Value Ref Range Troponin-T 0.22 (H) 0.00 - 0.00 ng/mL EKG 12 Lead Result Value Ref Range Ventricular rate 77 BPM Atrial Rate 77 BPM P-R Interval 160 ms QRS Duration 120 ms Q-T Interval 406 ms QTC Calculated (Bezet) 459 ms Calculated P [place] 48 degrees Calculated R [place] 27 degrees Calculated T [place] 18 degrees INTERPRETATION Sinus rhythm with marked [...] -- -- -- -- 04/20/20 0511 (!) / -- -- -- -- -- -- -- [...] tablet 37.5 mg 37.5 mg Oral Q6H [facility] Carol Reyna MD ??? sodium chloride 0.9 [...] oral geL 15-30 g Buccal Q30 Min PRJayashree Stanton MD Or ??? dextrose 10% infusion 250 [...] 50 mL/hr at 04/20/20 1400 No current Psychiatric-ordered outpatient medications on file. * Initial Assessments [...] date and time: COVID-19 TESTING 04/18 Order: [id number] (suggestion) Information displayed in this report will [...] HC and that a copy is at [facility]. If AD's have not been completed adult children would be surrogate decision maker per [place] surrogate decision making law. Any patient receiving care at [facility] must abide by [place] law. The hierarchy [...] (i) The agent with financial power of optical instrument assembler or a conservator appointed in accordance with RSA 464-A. (j) The guardian of the patient???s estate. Current Coping/Education/Information Needs: Coping well with hospital stay and feels updated on issues and plan. Current Functional Ability: Currently in CV[facility]. Having chest pain and RN notifying MD. Awaiting surgery once cleared by cardiology Functional Status Prior to Admission: States she is independent and active. 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 Is driving and able to walk good distances. Home Environment: Lives in [address] [place] [address] home with bed and bath on first level. Stairs are not an issue for her. There are no stairs to enter. Social & Family Supports/Community Resources: Has 2 sons and a daughter-one son and daughter live nearby and other son is in [place]. All able to assist if needed. Behavioral [...] Specific Information: n/a Health/Prescription Coverage: Primary Insurance: [employer] [facility] Secondary Insurance: N/A Prescription Coverage: yes Preferred Pharmacy: [facility] Other: n/a Primary Care Provider: Reshma Baig MD [phone] Patient/Caregiver Goals of Treatment: home with no needs once medically ready Potential Needs for Transition of Care: Rehab/SNF: n/a Home Health: n/a DME: n/a Dialysis: n/a Community Resources: n/a Transportation: son Darwin will take her home Other: n/a Anticipated Barriers to Discharge/Special Considerations: none Assessment: Independent woman admitted for chloycystectomy And found to have A FIb with RVR. Has insurance through [employer] with prescription coverage. Has accessible home and support of adult children. States she has advanced directives and we do not have a copy. Plan: Home no needs once medically ready. Have asked OCM to call [facility] for copy of AD. A member of the Care Management team will continue to monitor progress, follow for continuity of care and assist with transition of care planning. RESHMA ALLRED RN Pager: [phone] * Consult Note - Lisbeth Cain MD - 04/20/2020 10:04 AM EDT Images from the original note were not included. Inpatient Cardiology Consult Note Date of Consultation: 04/20/2020 Admit Date: 04/19/2020 Place of Service: [facility] Consult Attending: Dr. 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 Nicole: 0.66% risk of perioperative NE or cardiac arrest Geriatric-sensitive RCRI: 2.1% probability of perioperative NE or cardiac arrest Assessment: Ms. Chaudhary is a 79 year old woman with a history of HTN, HLP, DM, severe (CORINE 0.8 at OSH) - asymptomatic, possible history of AF who presented to the hospital as a transfer from [facility] for acute cholecystitis with [...] cardioversion (though she is not anticoagulated) -Recommend intermediate card tender anticoagulation for her AF but this can be deferred at the moment Will continue to follow, page with questions. Anam Cazares MD Loan Administrator PGY-5 04/20/2020 Page [phone] The indications, expected benefits, and potential risks [...] the chart. * Consult Note - Piper Kahn RN - 04/20/2020 6:13 AM EDT Life [...] 5 :46 AM EDT BASIC METABOLIC PANEL Routine 05/08/2020 5:46 AM EDT POCT GLUCOSE [...] 6 :45 AM EDT BASIC METABOLIC PANEL Routine 05/07/2020 6:45 AM EDT POCT GLUCOSE [...] 05/06/2020 5:25 AM EDT BASIC METABOLIC PANEL Routine 05/06/2020 5:25 AM EDT POCT GLUCOSE [...] 05/05/2020 7:34 AM EDT BASIC METABOLIC PANEL Routine 05/05/2020 7:34 AM EDT HC VENIPUNCTURE [...] 5 :18 AM EDT COMPREHENSIVE METABOLIC PANEL Routine 05/04/2020 5:18 AM EDT POCT GLUCOSE Routine 05/04/2020 3:10 AM EDT POCT GLUCOSE Routine 05/04/2020 12:07 AM EDT POCT GLUCOSE Routine 05/03/2020 7:53 PM EDT POCT GLUCOSE Routine 05/03/2020 5:01 PM EDT HC VENIPUNCTURE Routine 05/03/2020 1:49 PM EDT POCT GLUCOSE Routine 05/03/2020 11:45 AM EDT Upper GI Endoscopy, Diagnostic (70390) 05/03/2020 10:28 AM EDT egd UPPER GI ENDOSCOPY Routine 05/03/2020 9: 48 AM EDT POCT GLUCOSE Routine 05/03/2020 7:50 AM EDT HEMOGRAM Routine 05/03/2020 5:08 AM EDT DIFFERENTIAL, AUTOMATED Routine 05/03/20 20 5:08 AM EDT HC CBC,PLT & AUTO DIFF Routine 0 5:08 AM EDT HC MAGNESIUM, SERUM Routine 05/03/2020 5 :08 AM EDT COMPREHENSIVE METABOLIC PANEL Routine 05/03/2020 5:08 AM EDT POCT GLUCOSE [...] 6:13 AM EDT DIFFERENTIAL, AUTOMATED Routine 05/02/20 6:13 AM EDT HC VENIPUNCTURE Routine 05/02/2020 6:13 AM EDT PRO-BRAIN NATRIURETIC PEPTIDE Routine 05/02/2020 6:13 AM EDT HC MAGNESIUM, SERUM Routine 05/02/2020 6 :13 AM EDT COMPREHENSIVE METABOLIC PANEL Routine 05/02/2020 6:13 AM EDT POCT GLUCOSE Routine 05/02/2020 3:20 AM EDT POCT GLUCOSE Routine 05/01/2020 11:42 PM EDT POCT GLUCOSE Routine 05/01/2020 8:14 PM EDT POCT GLUCOSE Routine 05/01/2020 4:51 PM EDT POCT GLUCOSE Routine 05/01/2020 11:52 AM EDT POCT GLUCOSE Routine 05/01/2020 7:40 AM EDT HEMOGRAM Routine 05/01/2020 5:23 AM EDT DIFFERENTIAL, AUTOMATED Routine 05/01/20 5:23 AM EDT HC CBC,PLT & AUTO DIFF Routine 0 5:23 AM EDT HC MAGNESIUM, SERUM Routine 05/01/2020 5 :23 AM EDT COMPREHENSIVE METABOLIC PANEL Routine 05/01/2020 5:23 AM EDT POCT GLUCOSE [...] 6 :36 AM EDT COMPREHENSIVE METABOLIC PANEL Routine 04/30/2020 6:36 AM EDT POCT GLUCOSE [...] 4 :17 AM EDT COMPREHENSIVE METABOLIC PANEL Routine 04/29/2020 4:17 AM EDT POCT GLUCOSE [...] 4 :05 AM EDT COMPREHENSIVE METABOLIC PANEL Routine 04/28/2020 4:05 AM EDT POCT GLUCOSE [...] 4 :41 AM EDT COMPREHENSIVE METABOLIC PANEL Routine 04/27/2020 4:41 AM EDT POCT GLUCOSE [...] 4 :42 AM EDT COMPREHENSIVE METABOLIC PANEL Routine 04/26/2020 4:42 AM EDT POCT GLUCOSE [...] 5 :05 AM EDT COMPREHENSIVE METABOLIC PANEL Routine 04/25/2020 5:05 AM EDT POCT GLUCOSE [...] 4 :58 AM EDT COMPREHENSIVE METABOLIC PANEL Routine 04/24/2020 4:58 AM EDT POCT GLUCOSE [...] 2 :25 AM EDT COMPREHENSIVE METABOLIC PANEL Routine 04/23/2020 2:25 AM EDT POCT GLUCOSE [...] Routine 04/22/2020 11:29 AM EDT BLOOD GAS ARTERIAL POC Routine 0 9:20 AM EDT POCT GLUCOSE Routine 04/22/2020 [...] 04/22/2020 3:50 AM EDT COMPREHENSIVE METABOLIC PANEL Routine 04/22/2020 3:50 AM EDT POCT GLUCOSE Routine 04/21/2020 11:36 PM EDT BASIC METABOLIC PANEL Routine 04/21/2020 10:00 PM EDT POCT GLUCOSE [...] 3:30 AM EDT DIFFERENTIAL, AUTOMATED Routine 04/21/20 3:30 AM EDT HC PROTHROMBIN TIME Routine 04/21/2020 3 :30 AM EDT HC CBC,PLT & AUTO DIFF Routine 0 3:30 AM EDT HC MAGNESIUM, SERUM Routine 04/21/2020 3 :30 AM EDT COMPREHENSIVE METABOLIC PANEL Routine 04/21/2020 3:30 AM EDT HC TROPONIN [...] Routine 04/20/2020 8:10 AM EDT LACTATE, WHOLE BLOOD Routine 04/20/2020 5:25 AM EDT POCT GLUCOSE [...] 0 2:43 AM EDT COMPREHENSIVE METABOLIC PANEL STAT 04/20/2020 2:43 AM EDT EKG 12-LEAD [...] The procedure was performed under fluoroscopic guidance. Rubble Placer fluoroscopic images of the right upper quadrant [...] * POCT Glucose (05/08/2020 11:10 AM EDT) Glucose, POC 195 65 - 199 mg/dL [facility] Comment: Supplemental ranges: <140 mg/dL before meals <180 mg/dL all other times of the day Blood specimen (specimen) 05/08/2020 11:10 AM EDT 05/08/2020 11:10 AM EDT Kota Gonzales MD POINT OF CARE TEST O RDERABLES [facility] [place] [address] * POCT Glucose (05/08/2020 6:51 AM EDT) Pathologist [facility] Glucose, POC 144 65 - 199 mg/dL [facility] Comment: Supplemental ranges: <140 mg/dL before meals <180 mg/dL all other times of the day Blood specimen (specimen) 05/08/2020 6:51 AM EDT 05/08/2020 6:51 AM EDT Milagros Velazquez MD POINT OF CARE TEST O RDERABLES [facility] [place] [address] * Differential, Automated (05/08/2020 5:46 AM EDT) [facility] Neutrophil % 60.5 % [facility] Neutrophil Absolute 5.19 1.70 - 6.10 x10(3)/[facility] Lymph % 28.3 % [facility] Lymphocytes Abs 2.4 0.9 - 3.2 x10(3)/[facility] Monocyte % 5.8 % [facility] Monocyte Abs 0.5 0.3 - 0.9 x10(3)/[facility] Eos % 3.4 % [facility] Eosinophils Abs 0.3 0.0 - 0.4 x10(3)/[facility] Basophil % 1.5 % [facility] Baso Absolute 0.1 0.0 - 0.1 x10(3)/[facility] Immature Gran % 0.50 % [facility] Comment: Immature granulocytes(IG's)percentage and absolute count will include metamyelocytes, myelocytes, and promyelocytes. Blood smears from CBCs yielding IG's will be scanned manually for concordance. If this scan disagrees with the automated IG or if promyelocytes are noted, a manual differential will be performed. Immature Gran Absolute 0.04 0.00 - 0.04 x10(3)/[facility] Blood specimen (specimen) 05/08/2020 5:46 AM EDT 05/08/2020 6:21 AM EDT Narrative Resulting Agency Comment Spec In Lab Wilner Esparza MD HEMATOLOGY ORDERABLE S [facility] [place] [address] * (ABNORMAL) Hemogram (05/08/2020 5:46 AM EDT) White Blood Cell 8.6 4.0 - 9.5 x10(3)/[facility] LABORATORY Red Blood Cell 3.17(L) 4.00 - 5.21 x10(6)/[facility]ORY Hemoglobin 8.8(L) 11.7 - 15.5 gm/dL [facility] Hematocrit 26.7(L) 35.7 - 45.8 % [facility] Mean Cell Volume 84.2 82.6 - 94.4 fL [facility] Mean Cell Hemoglobin 27.8 27.1 - 32.0 pg [facility] Mean Cell Hemoglobin Concentration 33.0 31.7 - 35.0 gm/dL [facility] Platelet 351 145 - 357 x10(3)/[facility] LABORATORY RDW Standard Deviation 46.5(H) 37.0 - 46.0 [facility]ORY RDW coefficient of variation 15.6(H) 11.5 - 14.1 % [facility] Mean Platelet Volume 10.1 7.6 - 12.9 fL [facility] NRBC% auto 0.0 % [facility] NRBC Absolute 0.000 0.000 - 0.000 x10(3)/[facility] Blood specimen (specimen) 05/08/2020 5:46 AM EDT 05/08/2020 6:21 AM EDT Narrative Resulting Agency Comment Spec In Lab Wilner Esparza MD HEMATOLOGY ORDERABLE S [facility] [place] [address] * (ABNORMAL) Basic Metabolic Panel (non-fasting) (05/08/2020 5:46 AM EDT) Glucose 152 65 - 199 mg/dL [facility] Comment:Diabetes: >=200 mg/d L plus symptoms Blood Urea Nitrogen 20(H) 8 - 18 mg/dL [facility] Creatinine 0.85 0.70 - 1.20 mg/dL [facility] Sodium 136 135 - 145 mmol/L [facility] Potassium 4.1 3.5 - 5.0 mmol/L [facility] Comment: Please note: ??Patients with WBC >100,000 may have falsely elevated Potassium levels. ??For accurate Potassium quantification in these patients send serum separator tube (gold top) for subsequent determinations. ??Contact the Clinical Chemistry Laboratory if there are any questions. Chloride 107 98 - 107 mmol/L [facility] Carbon Dioxide 21(L) 22 - 31 mmol/L [facility] Anion Gap 8 5 - 15 mmol/L [facility] Calcium 8.9 8.5 - 10.5 mg/dL [facility] Est Glomerular Filtration Rate 65 >=60 mL/min/1. 73 m?? [facility] Comment: The eGFR was calculated using the CKD-EPI equation. As with all creatinine based estimates of kidney function, eGFR values calculated with the CKD-EPI equation are not accurate in patients with acute kidney failure, extremes of body mass or the acutely ill. [email or web address] [email or web address] eGFR 76 >=60 mL/min/1. 73 m?? [facility] Comment: The eGFR was calculated using the CKD-EPI equation. As with all creatinine based estimates of kidney function, eGFR values calculated with the CKD-EPI equation are not accurate in patients with acute kidney failure, extremes of body mass or the acutely ill. [email or web address] Blood specimen (specimen) 05/08/2020 5:46 AM EDT 05/08/2020 6:20 AM EDT Narrative Resulting Agency Comment Spec In Lab Milagros Velazquez MD CHEMISTRY ORDERABLES Performing Organization Address [facility] Co de Phone Number [facility] [place] [address] * Magnesium (05/08/2020 5:46 AM EDT) Magnesium 0.79 0.69 - 1.07 mmol/L [facility] Blood specimen (specimen) 05/08/2020 5:46 AM EDT 05/08/2020 6:20 AM EDT Narrative Resulting Agency Comment Spec In Lab Dale Dash MD CHEMISTRY ORDERABLES Performing Organization Address [facility] Co de Phone Number [facility] [place] [address] * POCT Glucose (05/07/2020 8:35 PM EDT) Glucose, POC 147 65 - 199 mg/dL [facility] Comment: Supplemental ranges: <140 mg/dL before meals <180 mg/dL all other times of the day Blood specimen (specimen) 05/07/2020 8:35 PM EDT 05/07/2020 8:35 PM EDT Milagros Velazquez MD POINT OF CARE TEST O RDERABLES Performing Organization Address [facility]/ZIP Co de Phone Number [facility] [place] [address] * POCT Glucose (05/07/2020 4:26 PM EDT) Glucose, POC 173 65 - 199 mg/dL [facility] Comment: Supplemental ranges: <140 mg/dL before meals <180 mg/dL all other times of the day Blood specimen (specimen) 05/07/2020 4:26 PM EDT 05/07/2020 4:26 PM EDT Milagros Velazquez MD POINT OF CARE TEST O RDERATOAN Performing Organization Address [facility] Co de Phone Number [facility] [place] [address] * POCT Glucose (05/07/2020 11:17 AM EDT) Glucose, POC 185 65 - 199 mg/dL [facility] Comment: Supplemental ranges: <140 mg/dL before meals <180 mg/dL all other times of the day Blood specimen (specimen) 05/07/2020 11:17 AM EDT 05/07/2020 11:17 AM EDT Milagros Velazquez MD POINT OF CARE TEST O POOLERATOAN Performing Organization Address [facility] de Phone Number [facility] [place] [address] * POCT Glucose (05/07/2020 7:20 AM EDT) Glucose, POC 145 65 - 199 mg/dL [facility] Comment: Supplemental ranges: <140 mg/dL before meals <180 mg/dL all other times of the day Blood specimen (specimen) 05/07/2020 7:20 AM EDT 05/07/2020 7:20 AM EDT Milagros Velazquez MD POINT OF CARE TEST O RDERATOAN Performing Organization Address [facility] Co de Phone Number [facility] [place] [address] * Differential, Automated (05/07/2020 6:45 AM EDT) Neutrophil % 53.8 % [facility] Neutrophil Absolute 4.19 1.70 - 6.10 x10(3)/mcL [facility] Lymph % 33.1 % [facility] Lymphocytes Abs 2.6 0.9 - 3.2 x10(3)/[facility]OR[facility]ORY Monocyte % 7.6 % [facility] Monocyte Abs 0.6 0.3 - 0.9 x10(3)/[facility] Eos % 3.2 % [facility] Eosinophils Abs 0.2 0.0 - 0.4 x10(3)/[facility] Basophil % 1.8 % [facility] Baso Absolute 0.1 0.0 - 0.1 x10(3)/[facility] Immature Gran % 0.50 % [facility] Comment: Immature granulocytes(IG's)percentage and absolute count will include metamyelocytes, myelocytes, and promyelocytes. Blood smears from CBCs yielding IG's will be scanned manually for concordance. If this scan disagrees with the automated IG or if promyelocytes are noted, a manual differential will be performed. Immature Gran Absolute 0.04 0.00 - 0.04 x10(3)/[facility] Blood specimen (specimen) 05/07/2020 6:45 AM EDT 05/07/2020 7:01 AM EDT Narrative Resulting Agency Comment Spec In Lab Wilner Esparza MD HEMATOLOGY ORDERABLE S Performing Organization Address City/State/[facility] Co de Phone Number [facility] [place] [address] * (ABNORMAL) Hemogram (05/07/2020 6:45 AM EDT) White Blood Cell 7.8 4.0 - 9.5 x10(3)/mc L [facility] Red Blood Cell 3.19(L) 4.00 - 5.21 x10(6)/mc L [facility] Hemoglobin 8.8(L) 11.7 - 15.5 gm/dL [facility] Hematocrit 26.4(L) 35.7 - 45.8 % [facility] Mean Cell Volume 82.8 82.6 - 94.4 fL [facility] Mean Cell Hemoglobin 27.6 27.1 - 32.0 pg [facility] Mean Cell Hemoglobin Concentration 33.3 31.7 - 35.0 gm/dL [facility] Platelet 360(H) 145 - 357 x10(3)/mc L [facility] RDW Standard Deviation 44.9 37.0 - 46.0 fL [facility] RDW coefficient of variation 15.2(H) 11.5 - 14.1 % [facility] Mean Platelet Volume 9.9 7.6 - 12.9 fL [facility] NRBC% auto 0.0 % [facility] NRBC Absolute 0.000 0.000 - 0.000 x10(3)/mc L [facility] Blood specimen (specimen) 05/07/2020 6:45 AM EDT 05/07/2020 7:01 AM EDT Narrative Resulting Agency Comment Spec In Lab Wilner Esparza MD HEMATOLOGY ORDERABLE S [facility] [place] [address] * (ABNORMAL) Basic Metabolic Panel (non-fasting) (05/07/2020 6:45 AM EDT) Glucose 145 65 - 199 mg/dL [facility] Comment:Diabetes: >=200 mg/d L plus symptoms Blood Urea Nitrogen 18 8 - 18 mg/dL [facility] Creatinine 0.85 0.70 - 1.20 mg/dL [facility] Sodium 137 135 - 145 mmol/L [facility] Potassium 4.1 3.5 - 5.0 mmol/L [facility] Comment: Please note: ??Patients with WBC >100,000 may have falsely elevated Potassium levels. ??For accurate Potassium quantification in these patients send serum separator tube (gold top) for subsequent determinations. ??Contact the Clinical Chemistry Laboratory if there are any questions. Chloride 105 98 - 107 mmol/L [facility] Carbon Dioxide 21(L) 22 - 31 mmol/L [facility] Anion Gap 11 5 - 15 mmol/L [facility] Calcium 8.9 8.5 - 10.5 mg/dL [facility] Est Glomerular Filtration Rate 65 >=60 mL/min/1. 73 m?? [facility] Comment: The eGFR was calculated using the CKD-EPI equation. As with all creatinine based estimates of kidney function, eGFR values calculated with the CKD-EPI equation are not accurate in patients with acute kidney failure, extremes of body mass or the acutely ill. [email or web address] [email or web address] eGFR 76 >=60 mL/min/1. 73 m?? [facility] Comment: The eGFR was calculated using the CKD-EPI equation. As with all creatinine based estimates of kidney function, eGFR values calculated with the CKD-EPI equation are not accurate in patients with acute kidney failure, extremes of body mass or the acutely ill. [email or web address] Blood specimen (specimen) 05/07/2020 6:45 AM EDT 05/07/2020 7:01 AM EDT Narrative Resulting Agency Comment Spec In Lab Milagros Velazquez MD CHEMISTRY ORDERABLES Performing Organization Address [facility] Co de Phone Number [facility] [place] [address] * Magnesium (05/07/2020 6:45 AM EDT) Magnesium 0.82 0.69 - 1.07 mmol/L [facility] Blood specimen (specimen) 05/07/2020 6:45 AM EDT 05/07/2020 7:01 AM EDT Narrative Resulting Agency Comment Spec In Lab Dale Dash MD CHEMISTRY ORDERABLES Performing Organization Address City/[facility]/ZIP Co de Phone Number [facility] [place] [id number] * POCT Glucose (05/07/2020 4:11 AM EDT) Glucose, POC 156 65 - 199 mg/dL [facility] Comment: Supplemental ranges: <140 mg/dL before meals <180 mg/dL all other times of the day Blood specimen (specimen) 05/07/2020 4:11 AM EDT 05/07/2020 4:11 AM EDT Milagros Velazquez MD POINT OF CARE TEST O RDERABLES [facility] [place] [address] * POCT Glucose (05/06/2020 11:36 PM EDT) Glucose, POC 172 65 - 199 mg/dL [facility] Comment: Supplemental ranges: <140 mg/dL before meals <180 mg/dL all other times of the day Blood specimen (specimen) 05/06/2020 11:36 PM EDT 05/06/2020 11:36 PM EDT Milagros Velazquez MD POINT OF CARE TEST O RDERABLES Performing Organization Address City/[facility]/ZIP Co de Phone Number [facility] [place] [address] * POCT Glucose (05/06/2020 8:28 PM EDT) Glucose, POC 195 65 - 199 mg/dL [facility] Comment: Supplemental ranges: <140 mg/dL before meals <180 mg/dL all other times of the day Blood specimen (specimen) 05/06/2020 8:28 PM EDT 05/06/2020 8:28 PM EDT Milagros Velazquez MD POINT OF CARE TEST O RDERABLES [facility] [place] [address] * Differential, Automated (05/06/2020 5:36 PM EDT) Pathologist [facility] Neutrophil % 62.8 % [facility] Neutrophil Absolute 6.07 1.70 - 6.10 x10(3)/[facility] Lymph % 27.5 % [facility] Lymphocytes Abs 2.7 0.9 - 3.2 x10(3)/[facility] Monocyte % 5.7 % [facility] Monocyte Abs 0.6 0.3 - 0.9 x10(3)/[facility] Eos % 2.3 % [facility] Eosinophils Abs 0.2 0.0 - 0.4 x10(3)/[facility] Basophil % 1.3 % [facility] Baso Absolute 0.1 0.0 - 0.1 x10(3)/[facility] Immature Gran % 0.40 % [facility] Comment: Immature granulocytes(IG's)percentage and absolute count will include metamyelocytes, myelocytes, and promyelocytes. Blood smears from CBCs yielding IG's will be scanned manually for concordance. If this scan disagrees with the automated IG or if promyelocytes are noted, a manual differential will be performed. Immature Gran Absolute 0.04 0.00 - 0.04 x10(3)/[facility] Blood specimen (specimen) 05/06/2020 5:36 PM EDT 05/06/2020 6:04 PM EDT Narrative Resulting Agency Comment Spec In Lab Wilner Esparza MD HEMATOLOGY ORDERABLE S [facility] [place] [address] * (ABNORMAL) Hemogram (05/06/2020 5:36 PM EDT) White Blood Cell 9.7(H) 4.0 - 9.5 x10(3)/ L [facility] Red Blood Cell 3.53(L) 4.00 - 5.21 x10(6)/mc L [facility] Hemoglobin 9.7(L) 11.7 - 15.5 gm/dL [facility] Hematocrit 29.8(L) 35.7 - 45.8 % [facility] Mean Cell Volume 84.4 82.6 - 94.4 fL [facility] Mean Cell Hemoglobin 27.5 27.1 - 32.0 pg [facility] Mean Cell Hemoglobin Concentration 32.6 31.7 - 35.0 gm/dL [facility] Platelet 427(H) 145 - 357 x10(3)/mc L [facility] RDW Standard Deviation 45.3 37.0 - 46.0 [facility] RDW coefficient of variation 14.9(H) 11.5 - 14.1 % [facility] Mean Platelet Volume 10.0 7.6 - 12.9 fL [facility] NRBC% auto 0.0 % [facility] NRBC Absolute 0.000 0.000 - 0.000 x10(3)/mc L [facility] Blood specimen (specimen) 05/06/2020 5:36 PM EDT 05/06/2020 6:04 PM EDT Narrative Resulting Agency Comment Spec In Lab Wilner Esparza MD HEMATOLOGY ORDERABLE S Performing Organization Address City/State/[facility] Co de Phone Number [facility] [place] [address] * Transfuse RBC (05/06/2020 4:30 PM EDT) Milagros Velazquez MD NURSING TREATMENT OR DERABLES - BLOOD ADMIN * Transfuse RBC (05/06/2020 4:30 PM EDT) Milagros Velazquez MD NURSING TREATMENT OR DERABLES - BLOOD ADMIN * POCT Glucose (05/06/2020 4:20 PM EDT) Glucose, POC 165 65 - 199 mg/dL [facility] Comment: Supplemental ranges: <140 mg/dL before meals <180 mg/dL all other times of the day Blood specimen (specimen) 05/06/2020 4:20 PM EDT 05/06/2020 4:20 PM EDT Milagros Velazquez MD POINT OF CARE TEST O RDERABLES Performing Organization Address City/[facility]/ZIP Co de Phone Number [facility] [place] [address] * ABORH Recheck Status (05/06/2020 12:46 PM EDT) ABORH Type Recheck Completed [facility] Blood specimen (specimen) 05/06/2020 12:46 PM EDT 05/06/2020 12:51 PM EDT Narrative Resulting Agency Comment Spec In Lab Wilner Esparza MD BLOOD BANK LAB ORDER JAMIE Performing Organization Address City/[facility]/ZIP Co de Phone Number [facility] [place] [address] * Antibody screen (05/06/2020 12:46 PM EDT) Ab Screen Interp Negative [facility] Expires at [id number] on: 05/09/2020 [facility] Blood specimen (specimen) 05/06/2020 12:46 PM EDT 05/06/2020 12:51 PM EDT Narrative Resulting Agency Comment Spec In Lab Wilner Esparza MD BLOOD BANK LAB ORDER JAMIE Performing Organization Address City/[facility]/ZIP Co de Phone Number [facility] [place] [address] * ABO/Rh Typing (05/06/2020 12:46 PM EDT) ABORH Type O Pos [facility] Blood specimen (specimen) 05/06/2020 12:46 PM EDT 05/06/2020 12:51 PM EDT Narrative Resulting Agency Comment Spec In Lab Wilner Esparza MD BLOOD BANK LAB ORDER JAMIE Performing Organization Address [facility] Co de Phone Number [facility] [place] [address] * Prepare RBC (05/06/2020 12:15 PM EDT) Dispensed? Yes [facility] Blood specimen (specimen) 05/06/2020 12:15 PM EDT 05/06/2020 12:14 PM EDT Narrative Resulting Agency Comment Spec In Lab Milagros Velazquez MD BLOOD BANK PRODUCT O RDERABLES Performing Organization Address [facility] Co de Phone Number [facility] [place] [address] * (ABNORMAL) POCT Glucose (05/06/2020 11:50 AM EDT) Glucose, POC 200(H) 65 - 199 mg/dL [facility] Comment: Supplemental ranges: <140 mg/dL before meals <180 mg/dL all other times of the day Blood specimen (specimen) 05/06/2020 11:50 AM EDT 05/06/2020 11:50 AM EDT Milagros Velazquez MD POINT OF CARE TEST O RDERATOAN Performing Organization Address [facility] Co de Phone Number [facility] [place] [address] * POCT Glucose (05/06/2020 7:39 AM EDT) Glucose, POC 153 65 - 199 mg/dL [facility] Comment: Supplemental ranges: <140 mg/dL before meals <180 mg/dL all other times of the day Blood specimen (specimen) 05/06/2020 7:39 AM EDT 05/06/2020 7:39 AM EDT Milagros Velazquez MD POINT OF CARE TEST O RDERABLES Performing Organization Address City/[facility]/ZIP Co de Phone Number [facility] [place] [address] * Differential, Automated (05/06/2020 5:25 AM EDT) [facility] Neutrophil % 56.6 % [facility] Neutrophil Absolute 4.64 1.70 - 6.10 x10(3)/[facility] Lymph % 30.6 % [facility] Lymphocytes Abs 2.5 0.9 - 3.2 x10(3)/[facility] Monocyte % 7.8 % [facility] Monocyte Abs 0.6 0.3 - 0.9 x10(3)/[facility] Eos % 3.0 % [facility] Eosinophils Abs 0.2 0.0 - 0.4 x10(3)/[facility] Basophil % 1.6 % [facility] Baso Absolute 0.1 0.0 - 0.1 x10(3)/[facility] Immature Gran % 0.40 % [facility] Comment: Immature granulocytes(IG's)percentage and absolute count will include metamyelocytes, myelocytes, and promyelocytes. Blood smears from CBCs yielding IG's will be scanned manually for concordance. If this scan disagrees with the automated IG or if promyelocytes are noted, a manual differential will be performed. Immature Gran Absolute 0.03 0.00 - 0.04 x10(3)/[facility] Blood specimen (specimen) 05/06/2020 5:25 AM EDT 05/06/2020 5:25 AM EDT Narrative Resulting Agency Comment Spec In Lab Wilner Esparza MD HEMATOLOGY ORDERABLE S Performing Organization Address City/[facility]/ZIP Co de Phone Number [facility] [place] [address] * (ABNORMAL) Hemogram (05/06/2020 5:25 AM EDT) [facility] White Blood Cell 8.2 4.0 - 9.5 x10(3)/ L [facility] Red Blood Cell 2.58(L) 4.00 - 5.21 x10(6)/mc L [facility] Hemoglobin 7.0(L) 11.7 - 15.5 gm/dL [facility] Hematocrit 22.1(L) 35.7 - 45.8 % [facility] Mean Cell Volume 85.7 82.6 - 94.4 fL [facility] Mean Cell Hemoglobin 27.1 27.1 - 32.0 pg [facility] Mean Cell Hemoglobin Concentration 31.7 31.7 - 35.0 gm/dL [facility] Platelet 364(H) 145 - 357 x10(3)/ L [facility] RDW Standard Deviation 46.5(H) 37.0 - 46.0 fL [facility] RDW coefficient of variation 15.2(H) 11.5 - 14.1 % [facility] Mean Platelet Volume 9.9 7.6 - 12.9 fL [facility] NRBC% auto 0.0 % [facility] NRBC Absolute 0.000 0.000 - 0.000 x10(3)/ L [facility] Blood specimen (specimen) 05/06/2020 5:25 AM EDT 05/06/2020 5:25 AM EDT Narrative Resulting Agency Comment Spec In Lab Wilner Esparza MD HEMATOLOGY ORDERABLE S [facility] [place] [address] * (ABNORMAL) Basic Metabolic Panel (non-fasting) (05/06/2020 5:25 AM EDT) [facility] Glucose 136 65 - 199 mg/dL [facility] Comment:Diabetes: >=200 mg/d L plus symptoms Blood Urea Nitrogen 24(H) 8 - 18 mg/dL [facility] Creatinine 0.85 0.70 - 1.20 mg/dL [facility] Sodium 137 135 - 145 mmol/L [facility] Potassium 4.2 3.5 - 5.0 mmol/L [facility] Comment: Please note: ??Patients with WBC >100,000 may have falsely elevated Potassium levels. ??For accurate Potassium quantification in these patients send serum separator tube (gold top) for subsequent determinations. ??Contact the Clinical Chemistry Laboratory if there are any questions. Chloride 106 98 - 107 mmol/L [facility] Carbon Dioxide 21(L) 22 - 31 mmol/L [facility] Anion Gap 10 5 - 15 mmol/L [facility] Calcium 8.7 8.5 - 10.5 mg/dL [facility] Est Glomerular Filtration Rate 65 >=60 mL/min/1. 73 m?? [facility] Comment: The eGFR was calculated using the CKD-EPI equation. As with all creatinine based estimates of kidney function, eGFR values calculated with the CKD-EPI equation are not accurate in patients with acute kidney failure, extremes of body mass or the acutely ill. [email or web address]/[facility]ISnkf eGFR 76 >=60 mL/min/1. 73 m?? [facility] Comment: The eGFR was calculated using the CKD-EPI equation. As with all creatinine based estimates of kidney function, eGFR values calculated with the CKD-EPI equation are not accurate in patients with acute kidney failure, extremes of body mass or the acutely ill. [email or web address]/[facility]ISnkf Blood specimen (specimen) 05/06/2020 5:25 AM EDT 05/06/2020 5:25 AM EDT Narrative Resulting Agency Comment Spec In Lab Milagros Velazquez MD CHEMISTRY ORDERABLES [facility] [place] [address] * Magnesium (05/06/2020 5:25 AM EDT) Magnesium 0.84 0.69 - 1.07 mmol/L [facility] Blood specimen (specimen) 05/06/2020 5:25 AM EDT 05/06/2020 5:25 AM EDT Narrative Resulting Agency Comment Spec In Lab Dale Dash MD CHEMISTRY ORDERABLES Performing Organization Address [facility] Co de Phone Number [facility] [place] [address] * POCT Glucose (05/06/2020 4:08 AM EDT) Glucose, POC 154 65 - 199 mg/dL [facility] Comment: Supplemental ranges: <140 mg/dL before meals <180 mg/dL all other times of the day Blood specimen (specimen) 05/06/2020 4:08 AM EDT 05/06/2020 4:08 AM EDT Milagros Velazquez MD POINT OF CARE TEST O RDERATOAN Performing Organization Address [facility] de Phone Number [facility] [place] [address] * SCAN DOC: LAB (05/06/2020 12:00 AM EDT) Narrative 05/06/2020 12:00 AM EDT Ordered by an unspecified provider. Scanning Provider MEDIA MGR SCAN EXT O RDR/RSLT * POCT Glucose (05/05/2020 11:58 PM EDT) Glucose, POC 184 65 - 199 mg/dL [facility] Comment: Supplemental ranges: <140 mg/dL before meals <180 mg/dL all other times of the day Blood specimen (specimen) 05/05/2020 11:58 PM EDT 05/05/2020 11:58 PM EDT Milagros Velazquez MD POINT OF CARE TEST O RDERABLES Performing Organization Address [facility]/ZIP Co de Phone Number [facility] [place] [address] * POCT Glucose (05/05/2020 8:18 PM EDT) Glucose, POC 173 65 - 199 mg/dL [facility] Comment: Supplemental ranges: <140 mg/dL before meals <180 mg/dL all other times of the day Blood specimen (specimen) 05/05/2020 8:18 PM EDT 05/05/2020 8:18 PM EDT Milagros Velazquez MD POINT OF CARE TEST O RDERABLES Performing Organization Address [facility]/ZIP Co de Phone Number [facility] [place] [address] * POCT Glucose (05/05/2020 4:36 PM EDT) Glucose, POC 147 65 - 199 mg/dL [facility] Comment: Supplemental ranges: <140 mg/dL before meals <180 mg/dL all other times of the day Blood specimen (specimen) 05/05/2020 4:36 PM EDT 05/05/2020 4:36 PM EDT Milagros Velazquez MD POINT OF CARE TEST O RDERATOAN Performing Organization Address City/[facility]/ZIP Co de Phone Number [facility] [place] [address] * (ABNORMAL) Hemogram (05/05/2020 2:13 PM EDT) White Blood Cell 9.3 4.0 - 9.5 x10(3)/mc L [facility] Red Blood Cell 2.85(L) 4.00 - 5.21 x10(6)/mc L [facility] Hemoglobin 7.7(L) 11.7 - 15.5 gm/dL [facility] Hematocrit 24.3(L) 35.7 - 45.8 % [facility] Mean Cell Volume 85.3 82.6 - 94.4 fL [facility] Mean Cell Hemoglobin 27.0(L) 27.1 - 32.0 pg [facility] Mean Cell Hemoglobin Concentration 31.7 31.7 - 35.0 gm/dL [facility] Platelet 386(H) 145 - 357 x10(3)/mc L [facility] RDW Standard Deviation 45.7 37.0 - 46.0 fL [facility] RDW coefficient of variation 14.8(H) 11.5 - 14.1 % [facility] Mean Platelet Volume 9.8 7.6 - 12.9 fL [facility] NRBC% auto 0.0 % [facility] NRBC Absolute 0.000 0.000 - 0.000 x10(3)/mc L [facility] Blood specimen (specimen) 05/05/2020 2:13 PM EDT 05/05/2020 2:18 PM EDT Narrative Resulting Agency Comment Spec In Lab Milagros Velazquez MD HEMATOLOGY ORDERABLE S Performing Organization Address City/[facility]/ZIP Co de Phone Number [facility] [place] [address] * POCT Glucose (05/05/2020 12:12 PM EDT) Glucose, POC 177 65 - 199 mg/dL [facility] Comment: Supplemental ranges: <140 mg/dL before meals <180 mg/dL all other times of the day Blood specimen (specimen) 05/05/2020 12:12 PM EDT 05/05/2020 12:12 PM EDT Milagros Velazquez MD POINT OF CARE TEST O RDERABLES Performing Organization Address City/[facility]/ZIP Co de Phone Number [facility] [place] [address] * POCT Glucose (05/05/2020 7:41 AM EDT) Glucose, POC 176 65 - 199 mg/dL [facility] Comment: Supplemental ranges: <140 mg/dL before meals <180 mg/dL all other times of the day Blood specimen (specimen) 05/05/2020 7:41 AM EDT 05/05/2020 7:41 AM EDT Milagros Velazquez MD POINT OF CARE TEST O ISAIAH [facility] [place] [address] * (ABNORMAL) Differential, Automated (05/05/2020 7:34 AM EDT) Neutrophil % 64.5 % [facility] Neutrophil Absolute 5.88 1.70 - 6.10 x10(3)/mc L [facility] Lymph % 24.1 % [facility] Lymphocytes Abs 2.2 0.9 - 3.2 x10(3)/ L [facility] Monocyte % 7.0 % [facility] Monocyte Abs 0.6 0.3 - 0.9 x10(3)/ L [facility] Eos % 2.7 % [facility] Eosinophils Abs 0.2 0.0 - 0.4 x10(3)/ L [facility] Basophil % 1.2 % [facility] Baso Absolute 0.1 0.0 - 0.1 x10(3)/mc L [facility] Immature Gran % 0.50 % [facility] Comment: Immature granulocytes(IG's)percentage and absolute count will include metamyelocytes, myelocytes, and promyelocytes. Blood smears from CBCs yielding IG's will be scanned manually for concordance. If this scan disagrees with the automated IG or if promyelocytes are noted, a manual differential will be performed. Immature Gran Absolute 0.05(H) 0.00 - 0.04 x10(3)/mc L [facility] Blood specimen (specimen) 05/05/2020 7:34 AM EDT 05/05/2020 7:38 AM EDT Narrative Resulting Agency Comment Spec In Lab Wilner Esparza MD HEMATOLOGY ORDERABLE S [facility] [place] [address] * (ABNORMAL) Hemogram (05/05/2020 7:34 AM EDT) White Blood Cell 9.1 4.0 - 9.5 x10(3)/mc L [facility] Red Blood Cell 2.76(L) 4.00 - 5.21 x10(6)/mc L [facility] Hemoglobin 7.6(L) 11.7 - 15.5 gm/dL [facility] Hematocrit 23.6(L) 35.7 - 45.8 % [facility] Mean Cell Volume 85.5 82.6 - 94.4 fL [facility] Mean Cell Hemoglobin 27.5 27.1 - 32.0 pg [facility] Mean Cell Hemoglobin Concentration 32.2 31.7 - 35.0 gm/dL [facility] Platelet 386(H) 145 - 357 x10(3)/mc L [facility] RDW Standard Deviation 46.0 37.0 - 46.0 [facility] RDW coefficient of variation 15.1(H) 11.5 - 14.1 % [facility] Mean Platelet Volume 9.9 7.6 - 12.9 [facility] NRBC% auto 0.0 % [facility] NRBC Absolute 0.000 0.000 - 0.000 x10(3)/mc L [facility] Blood specimen (specimen) 05/05/2020 7:34 AM EDT 05/05/2020 7:38 AM EDT Narrative Resulting Agency Comment Spec In Lab Wilner Esparza MD HEMATOLOGY ORDERABLE S [facility] [place] [address] * (ABNORMAL) Basic Metabolic Panel (non-fasting) (05/05/2020 7:34 AM EDT) Glucose 157 65 - 199 mg/dL [facility] Comment:Diabetes: >=200 mg/d L plus symptoms Blood Urea Nitrogen 28(H) 8 - 18 mg/dL [facility] Creatinine 0.74 0.70 - 1.20 mg/dL [facility] Sodium 137 135 - 145 mmol/L [facility] Potassium 4.4 3.5 - 5.0 mmol/L [facility] Comment: Please note: ??Patients with WBC >100,000 may have falsely elevated Potassium levels. ??For accurate Potassium quantification in these patients send serum separator tube (gold top) for subsequent determinations. ??Contact the Clinical Chemistry Laboratory if there are any questions. Chloride 105 98 - 107 mmol/L [facility] Carbon Dioxide 21(L) 22 - 31 mmol/L [facility] Anion Gap 11 5 - 15 mmol/L [facility] Calcium 8.5 8.5 - 10.5 mg/dL [facility] Est Glomerular Filtration Rate 77 >=60 mL/min/1. 73 m?? [facility] Comment: The eGFR was calculated using the CKD-EPI equation. As with all creatinine based estimates of kidney function, eGFR values calculated with the CKD-EPI equation are not accurate in patients with acute kidney failure, extremes of body mass or the acutely ill. [email or web address] eGFR 89 >=60 mL/min/1. 73 m?? [facility] Comment: The eGFR was calculated using the CKD-EPI equation. As with all creatinine based estimates of kidney function, eGFR values calculated with the CKD-EPI equation are not accurate in patients with acute kidney failure, extremes of body mass or the acutely ill. [email or web address] Blood specimen (specimen) 05/05/2020 7:34 AM EDT 05/05/2020 7:38 AM EDT Narrative Resulting Agency Comment Spec In Lab Milagros Velazquez MD CHEMISTRY ORDERABLES Performing Organization Address [facility] Co de Phone Number [facility] [place] [address] * Magnesium (05/05/2020 5:29 AM EDT) Magnesium 0.81 0.69 - 1.07 mmol/L [facility] Blood specimen (specimen) 05/05/2020 5:29 AM EDT 05/05/2020 5:54 AM EDT Narrative Resulting Agency Comment Spec In Lab Dale Dash MD CHEMISTRY ORDERABLES Performing Organization Address [facility] de Phone Number [facility] [place] [address] * POCT Glucose (05/05/2020 4:08 AM EDT) Glucose, POC 148 65 - 199 mg/dL [facility] Comment: Supplemental ranges: <140 mg/dL before meals <180 mg/dL all other times of the day Blood specimen (specimen) 05/05/2020 4:08 AM EDT 05/05/2020 4:08 AM EDT Milagros Velazquez MD POINT OF CARE TEST O RDERABLES Performing Organization Address [facility] Co de Phone Number [facility] [place] [address] * POCT Glucose (05/04/2020 11:41 PM EDT) Glucose, POC 173 65 - 199 mg/dL [facility] Comment: Supplemental ranges: <140 mg/dL before meals <180 mg/dL all other times of the day Blood specimen (specimen) 05/04/2020 11:41 PM EDT 05/04/2020 11:41 PM EDT Milagros Velazquez MD POINT OF CARE TEST O RDERABLES Performing Organization Address City/[facility]/ZIP Co de Phone Number [facility] [place] [address] * (ABNORMAL) Hemogram (05/04/2020 8:12 PM EDT) White Blood Cell 11.8(H) 4.0 - 9.5 x10(3)/mc L [facility] Red Blood Cell 3.02(L) 4.00 - 5.21 x10(6)/mc L [facility] Hemoglobin 8.2(L) 11.7 - 15.5 gm/dL [facility] Hematocrit 25.8(L) 35.7 - 45.8 % [facility] Mean Cell Volume 85.4 82.6 - 94.4 fL [facility] Mean Cell Hemoglobin 27.2 27.1 - 32.0 pg [facility] Mean Cell Hemoglobin Concentration 31.8 31.7 - 35.0 gm/dL [facility] Platelet 418(H) 145 - 357 x10(3)/mc L [facility] RDW Standard Deviation 45.9 37.0 - 46.0 [facility] RDW coefficient of variation 15.1(H) 11.5 - 14.1 % [facility] Mean Platelet Volume 10.0 7.6 - 12.9 fL [facility] NRBC% auto 0.0 % [facility] NRBC Absolute 0.000 0.000 - 0.000 x10(3)/mc L [facility] Blood specimen (specimen) 05/04/2020 8:12 PM EDT 05/04/2020 8:36 PM EDT Narrative Resulting Agency Comment Spec In Lab Milagros Velazquez MD HEMATOLOGY ORDERABLE S Performing Organization Address City/[facility]/ZIP Co de Phone Number [facility] [place] [address] * POCT Glucose (05/04/2020 7:45 PM EDT) Glucose, POC 178 65 - 199 mg/dL [facility] Comment: Supplemental ranges: <140 mg/dL before meals <180 mg/dL all other times of the day Blood specimen (specimen) 05/04/2020 7:45 PM EDT 05/04/2020 7:45 PM EDT Milagros Velazquez MD POINT OF CARE TEST O ISAIAH Performing Organization Address City/[facility]/ZIP Co de Phone Number [facility] [place] [address] * POCT Glucose (05/04/2020 4:19 PM EDT) Glucose, POC 160 65 - 199 mg/dL [facility] Comment: Supplemental ranges: <140 mg/dL before meals <180 mg/dL all other times of the day Blood specimen (specimen) 05/04/2020 4:19 PM EDT 05/04/2020 4:19 PM EDT Milagros Velazquez MD POINT OF CARE TEST O ISAIAH [facility] [place] [address] * (ABNORMAL) Hemogram (05/04/2020 2:26 PM EDT) White Blood Cell 10.6(H) 4.0 - 9.5 x10(3)/mc L [facility] Red Blood Cell 3.04(L) 4.00 - 5.21 x10(6)/mc L [facility] Hemoglobin 8.3(L) 11.7 - 15.5 gm/dL [facility] Hematocrit 26.1(L) 35.7 - 45.8 % [facility] Mean Cell Volume 85.9 82.6 - 94.4 fL [facility] Mean Cell Hemoglobin 27.3 27.1 - 32.0 pg [facility] Mean Cell Hemoglobin Concentration 31.8 31.7 - 35.0 gm/dL [facility] Platelet 474(H) 145 - 357 x10(3)/mc L [facility] RDW Standard Deviation 46.4(H) 37.0 - 46.0 fL [facility] RDW coefficient of variation 15.0(H) 11.5 - 14.1 % [facility] Mean Platelet Volume 10.4 7.6 - 12.9 [facility] NRBC% auto 0.0 % [facility] NRBC Absolute 0.000 0.000 - 0.000 x10(3)/mc L [facility] Blood specimen (specimen) 05/04/2020 2:26 PM EDT 05/04/2020 2:42 PM EDT Narrative Resulting Agency Comment Spec In Lab Milagros Velazquez MD HEMATOLOGY ORDERABLE S Performing Organization Address City/[facility]/ZIP Co de Phone Number [facility] [place] [address] * POCT Glucose (05/04/2020 11:36 AM EDT) Glucose, POC 174 65 - 199 mg/dL [facility] Comment: Supplemental ranges: <140 mg/dL before meals <180 mg/dL all other times of the day Blood specimen (specimen) 05/04/2020 11:36 AM EDT 05/04/2020 11:36 AM EDT Milagros Velazquez MD POINT OF CARE TEST O RDERABLES Performing Organization Address City/[facility]/ZIP Co de Phone Number [facility] [place] [address] * POCT Glucose (05/04/2020 8:19 AM EDT) Glucose, POC 167 65 - 199 mg/dL [facility] Comment: Supplemental ranges: <140 mg/dL before meals <180 mg/dL all other times of the day Blood specimen (specimen) 05/04/2020 8:19 AM EDT 05/04/2020 8:19 AM EDT Milagros Velazquez MD POINT OF CARE TEST O RDERABLES [facility] [place] [address] * (ABNORMAL) Differential, Automated (05/04/2020 5:18 AM EDT) Neutrophil % 64.3 % [facility] Neutrophil Absolute 7.33(H) 1.70 - 6.10 x10(3)/mc L [facility] Lymph % 23.3 % [facility] Lymphocytes Abs 2.7 0.9 - 3.2 x10(3)/mc L [facility] Monocyte % 7.4 % [facility] Monocyte Abs 0.8 0.3 - 0.9 x10(3)/mc L [facility] Eos % 3.4 % [facility] Eosinophils Abs 0.4 0.0 - 0.4 x10(3)/mc L [facility] Basophil % 1.1 % [facility] Baso Absolute 0.1 0.0 - 0.1 x10(3)/mc L [facility] Immature Gran % 0.50 % [facility] Comment: Immature granulocytes(IG's)percentage and absolute count will include metamyelocytes, myelocytes, and promyelocytes. Blood smears from CBCs yielding IG's will be scanned manually for concordance. If this scan disagrees with the automated IG or if promyelocytes are noted, a manual differential will be performed. Immature Gran Absolute 0.06(H) 0.00 - 0.04 x10(3)/mc L [facility] Blood specimen (specimen) 05/04/2020 5:18 AM EDT 05/04/2020 5:40 AM EDT Narrative Resulting Agency Comment Spec In Lab Davon Leung MD HEMATOLOGY ORDERABLE S [facility] [place] [address] * (ABNORMAL) Hemogram (05/04/2020 5:18 AM EDT) White Blood Cell 11.4(H) 4.0 - 9.5 x10(3)/mc L [facility] Red Blood Cell 2.97(L) 4.00 - 5.21 x10(6)/mc L [facility] Hemoglobin 8.0(L) 11.7 - 15.5 gm/dL [facility] Hematocrit 25.6(L) 35.7 - 45.8 % [facility] Mean Cell Volume 86.2 82.6 - 94.4 fL [facility] Mean Cell Hemoglobin 26.9(L) 27.1 - 32.0 pg [facility] Mean Cell Hemoglobin Concentration 31.3(L) 31.7 - 35.0 gm/dL [facility] Platelet 415(H) 145 - 357 x10(3)/mc L [facility] RDW Standard Deviation 47.3(H) 37.0 - 46.0 fL [facility] RDW coefficient of variation 15.2(H) 11.5 - 14.1 % [facility] Mean Platelet Volume 10.0 7.6 - 12.9 fL [facility] NRBC% auto 0.0 % [facility] NRBC Absolute 0.000 0.000 - 0.000 x10(3)/mc L [facility] Blood specimen (specimen) 05/04/2020 5:18 AM EDT 05/04/2020 5:40 AM EDT Narrative Resulting Agency Comment Spec In Lab Davon Leung MD HEMATOLOGY ORDERABLE S [facility] [place] [address] * Magnesium (05/04/2020 5:18 AM EDT) Pathologist [facility] Magnesium 0.97 0.69 - 1.07 mmol/L [facility] Blood specimen (specimen) 05/04/2020 5:18 AM EDT 05/04/2020 5:40 AM EDT Narrative Resulting Agency Comment Spec In Lab Dale Dash MD CHEMISTRY ORDERABLES Performing Organization Address [facility]/ZIP Co de Phone Number [facility] [place] [address] * (ABNORMAL) Comprehensive metabolic panel (non-fasting) (05/04/2020 5:18 AM EDT) Pathologist [facility] Glucose 151 65 - 199 mg/dL [facility] Comment:Diabetes: >=200 mg/d L plus symptoms Blood Urea Nitrogen 33(H) 8 - 18 mg/dL [facility] Creatinine 0.92 0.70 - 1.20 mg/dL [facility] Sodium 136 135 - 145 mmol/L [facility] Potassium 4.3 3.5 - 5.0 mmol/L [facility] Comment: Please note: ??Patients with WBC >100,000 may have falsely elevated Potassium levels. ??For accurate Potassium quantification in these patients send serum separator tube (gold top) for subsequent determinations. ??Contact the Clinical Chemistry Laboratory if there are any questions. Chloride 105 98 - 107 mmol/L [facility] Carbon Dioxide 20(L) 22 - 31 mmol/L [facility] Anion Gap 11 5 - 15 mmol/L [facility] Calcium 8.9 8.5 - 10.5 mg/dL [facility] Protein, Total 6.0(L) 6.1 - 8.0 gm/dL [facility] Albumin 2.9(L) 3.2 - 5.2 gm/dL [facility] Aspartate Aminotransferase 12 0 - 30 unit/L [facility] Alanine Aminotransferase 11 0 - 30 unit/L [facility] Alkaline Phosphatase 133(H) 35 - 105 unit/L [facility] Bilirubin, Total 0.3 0.2 - 1.3 mg/dL [facility] Est Glomerular Filtration Rate 59(L) >=60 mL/min/1. 73 m?? [facility] Comment: The eGFR was calculated using the CKD-EPI equation. As with all creatinine based estimates of kidney function, eGFR values calculated with the CKD-EPI equation are not accurate in patients with acute kidney failure, extremes of body mass or the acutely ill. [email or web address]/[facility]nkf eGFR 69 >=60 mL/min/1. 73 m?? [facility] Comment: The eGFR was calculated using the CKD-EPI equation. As with all creatinine based estimates of kidney function, eGFR values calculated with the CKD-EPI equation are not accurate in patients with acute kidney failure, extremes of body mass or the acutely ill. [email or web address] Blood specimen (specimen) 05/04/2020 5:18 AM EDT 05/04/2020 5:40 AM EDT Narrative Resulting Agency Comment Spec In Lab Dale Dash MD CHEMISTRY ORDERABLES Performing Organization Address City/State/[facility] Co de Phone Number [facility] [place] [address] * POCT Glucose (05/04/2020 3:10 AM EDT) Glucose, POC 163 65 - 199 mg/dL [facility] Comment: Supplemental ranges: <140 mg/dL before meals <180 mg/dL all other times of the day Blood specimen (specimen) 05/04/2020 3:10 AM EDT 05/04/2020 3:10 AM EDT Milagros Velazquez MD POINT OF CARE TEST O RDERATOAN Performing Organization Address [facility] Co de Phone Number [facility] [place] [address] * POCT Glucose (05/04/2020 12:07 AM EDT) Glucose, POC 196 65 - 199 mg/dL [facility] Comment: Supplemental ranges: <140 mg/dL before meals <180 mg/dL all other times of the day Blood specimen (specimen) 05/04/2020 12:07 AM EDT 05/04/2020 12:07 AM EDT Milagros Velazquez MD POINT OF CARE TEST O RDERATOAN Performing Organization Address [facility] de Phone Number [facility] [place] [address] * (ABNORMAL) POCT Glucose (05/03/2020 7:53 PM EDT) Glucose, POC 214(H) 65 - 199 mg/dL [facility] Comment: Supplemental ranges: <140 mg/dL before meals <180 mg/dL all other times of the day Blood specimen (specimen) 05/03/2020 7:53 PM EDT 05/03/2020 7:53 PM EDT Milagros Velazquez MD POINT OF CARE TEST O ISAIAH Performing Organization Address [facility] Co de Phone Number [facility] [place] [address] * POCT Glucose (05/03/2020 5:01 PM EDT) Glucose, POC 199 65 - 199 mg/dL [facility] Comment: Supplemental ranges: <140 mg/dL before meals <180 mg/dL all other times of the day Blood specimen (specimen) 05/03/2020 5:01 PM EDT 05/03/2020 5:01 PM EDT Milagros Velazquez MD POINT OF CARE TEST O RDERABLES Performing Organization Address City/[facility]/ZIP Co de Phone Number [facility] [place] [address] * (ABNORMAL) Hemogram (05/03/2020 1:49 PM EDT) White Blood Cell 11.2(H) 4.0 - 9.5 x10(3)/mc L [facility] Red Blood Cell 3.20(L) 4.00 - 5.21 x10(6)/mc L [facility] Hemoglobin 8.7(L) 11.7 - 15.5 gm/dL [facility] Hematocrit 27.1(L) 35.7 - 45.8 % [facility] Mean Cell Volume 84.7 82.6 - 94.4 fL [facility] Mean Cell Hemoglobin 27.2 27.1 - 32.0 pg [facility] Mean Cell Hemoglobin Concentration 32.1 31.7 - 35.0 gm/dL [facility] Platelet 428(H) 145 - 357 x10(3)/mc L [facility] RDW Standard Deviation 45.1 37.0 - 46.0 fL [facility] RDW coefficient of variation 14.8(H) 11.5 - 14.1 % [facility] Mean Platelet Volume 9.7 7.6 - 12.9 fL [facility] NRBC% auto 0.0 % [facility] NRBC Absolute 0.000 0.000 - 0.000 x10(3)/mc L [facility] Blood specimen (specimen) 05/03/2020 1:49 PM EDT 05/03/2020 1:55 PM EDT Narrative Resulting Agency Comment Spec In Lab Milagros Velazquez MD HEMATOLOGY ORDERABLE S Performing Organization Address City/[facility]/ZIP Co de Phone Number [facility] [place] [address] * POCT Glucose (05/03/2020 11:45 AM EDT) Pathologist [facility] Glucose, POC 155 65 - 199 mg/dL [facility] Comment: Supplemental ranges: <140 mg/dL before meals <180 mg/dL all other times of the day Blood specimen (specimen) 05/03/2020 11:45 AM EDT 05/03/2020 11:45 AM EDT Milagros Velazquez MD POINT OF CARE TEST O RDERABLES [facility] [place] [address] * UPPER GI ENDOSCOPY (05/03/2020 9:48 AM EDT) [facility] UPPER GI ENDOSCOPY [facility] Endoscopy Procedure Date: 05/03/2020 9:48 AM ? Patient Name: Shannan Chaudhary ? N: [id number] ? Date of : 1940 ? Age: 79 ? Order #: [id number] ? Instrument Name: [id number] ? Procedure: ? Upper GI endoscopy Indications: ? Melena Providers: ? Brigitte Graf MD, Oscar Almonte. ? Jessica Heath, ? Vinegar Maker, Mauro Johnson MD: ? Medicines: ? Monitored [...] * POCT Glucose (05/03/2020 7:50 AM EDT) Glucose, POC 164 65 - 199 mg/dL [facility] Comment: Supplemental ranges: <140 mg/dL before meals <180 mg/dL all other times of the day Blood specimen (specimen) 05/03/2020 7:50 AM EDT 05/03/2020 7:50 AM EDT Milagros Velazquez MD POINT OF CARE TEST O RDERABLES Performing Organization Address City/[facility]/Z[place] [address] * (ABNORMAL) Differential, Automated (05/03/2020 5:08 AM EDT) Neutrophil % 69.6 % [facility] Neutrophil Absolute 9.11(H) 1.70 - 6.10 x10(3)/mc L [facility] Lymph % 19.6 % [facility] Lymphocytes Abs 2.6 0.9 - 3.2 x10(3)/ L [facility] Monocyte % 6.7 % [facility] Monocyte Abs 0.9 0.3 - 0.9 x10(3)/ L [facility] Eos % 2.8 % [facility] Eosinophils Abs 0.4 0.0 - 0.4 x10(3)/ L [facility] Basophil % 0.8 % [facility] Baso Absolute 0.1 0.0 - 0.1 x10(3)/mc L [facility] Immature Gran % 0.50 % [facility] Comment: Immature granulocytes(IG's)percentage and absolute count will include metamyelocytes, myelocytes, and promyelocytes. Blood smears from CBCs yielding IG's will be scanned manually for concordance. If this scan disagrees with the automated IG or if promyelocytes are noted, a manual differential will be performed. Immature Gran Absolute 0.06(H) 0.00 - 0.04 x10(3)/mc L [facility] Blood specimen (specimen) 05/03/2020 5:08 AM EDT 05/03/2020 5:30 AM EDT Narrative Resulting Agency Comment Spec In Lab Davon Leung MD HEMATOLOGY ORDERABLE S Performing Organization Address City/[facility]/ZIP Co de Phone Number [facility] [place] [address] * (ABNORMAL) Hemogram (05/03/2020 5:08 AM EDT) White Blood Cell 13.1(H) 4.0 - 9.5 x10(3)/[facility] Red Blood Cell 3.04(L) 4.00 - 5.21 x10(6)/[facility] Hemoglobin 8.3(L) 11.7 - 15.5 gm/dL [facility] Hematocrit 25.7(L) 35.7 - 45.8 % [facility] Mean Cell Volume 84.5 82.6 - 94.4 fL [facility] Mean Cell Hemoglobin 27.3 27.1 - 32.0 pg [facility] Mean Cell Hemoglobin Concentration 32.3 31.7 - 35.0 gm/dL [facility] Platelet 409(H) 145 - 357 x10(3)/[facility] RDW Standard Deviation 45.7 37.0 - 46.0 [facility] RDW coefficient of variation 15.0(H) 11.5 - 14.1 % [facility] Mean Platelet Volume 10.0 7.6 - 12.9 fL [facility] NRBC% auto 0.0 % [facility] NRBC Absolute 0.000 0.000 - 0.000 x10(3)/[facility] Blood specimen (specimen) 05/03/2020 5:08 AM EDT 05/03/2020 5:30 AM EDT Narrative Resulting Agency Comment Spec In Lab Davon Leung MD HEMATOLOGY ORDERABLE S [facility] [place] [address] * Magnesium (05/03/2020 5:08 AM EDT) Pathologist [facility] Magnesium 0.82 0.69 - 1.07 mmol/L [facility] Blood specimen (specimen) 05/03/2020 5:08 AM EDT 05/03/2020 5:30 AM EDT Narrative Resulting Agency Comment Spec In Lab Dale Dash MD CHEMISTRY ORDERABLES [facility] [place] [address] * (ABNORMAL) Comprehensive metabolic panel (non-fasting) (05/03/2020 5:08 AM EDT) Glucose 164 65 - 199 mg/dL [facility] Comment:Diabetes: >=200 mg/d L plus symptoms Blood Urea Nitrogen 30(H) 8 - 18 mg/dL [facility] Creatinine 0.82 0.70 - 1.20 mg/dL [facility] Sodium 138 135 - 145 mmol/L [facility] Potassium 4.2 3.5 - 5.0 mmol/L [facility] Comment: Please note: ??Patients with WBC >100,000 may have falsely elevated Potassium levels. ??For accurate Potassium quantification in these patients send serum separator tube (gold top) for subsequent determinations. ??Contact the Clinical Chemistry Laboratory if there are any questions. Chloride 105 98 - 107 mmol/L [facility] Carbon Dioxide 21(L) 22 - 31 mmol/L [facility] Anion Gap 12 5 - 15 mmol/L [facility] Calcium 9.0 8.5 - 10.5 mg/dL [facility] Protein, Total 6.1 6.1 - 8.0 gm/dL [facility] Albumin 3.0(L) 3.2 - 5.2 gm/dL [facility] Aspartate Aminotransferase 7 0 - 30 unit/L [facility] Alanine Aminotransferase 8 0 - 30 unit/L [facility] Alkaline Phosphatase 136(H) 35 - 105 unit/L [facility] Bilirubin, Total 0.3 0.2 - 1.3 mg/dL [facility] Est Glomerular Filtration Rate 68 >=60 mL/min/1. 73 m?? [facility] Comment: The eGFR was calculated using the CKD-EPI equation. As with all creatinine based estimates of kidney function, eGFR values calculated with the CKD-EPI equation are not accurate in patients with acute kidney failure, extremes of body mass or the acutely ill. [email or web address]/[facility]nkf eGFR 79 >=60 mL/min/1. 73 m?? [facility] Comment: The eGFR was calculated using the CKD-EPI equation. As with all creatinine based estimates of kidney function, eGFR values calculated with the CKD-EPI equation are not accurate in patients with acute kidney failure, extremes of body mass or the acutely ill. [email or web address]/[facility]nkf Blood specimen (specimen) 05/03/2020 5:08 AM EDT 05/03/2020 5:30 AM EDT Narrative Resulting Agency Comment Spec In Lab Dale Dash MD CHEMISTRY ORDERABLES Performing Organization Address [facility] Co de Phone Number [facility] [place] [address] * POCT Glucose (05/03/2020 4:26 AM EDT) Glucose, POC 164 65 - 199 mg/dL [facility] Comment: Supplemental ranges: <140 mg/dL before meals <180 mg/dL all other times of the day Blood specimen (specimen) 05/03/2020 4:26 AM EDT 05/03/2020 4:26 AM EDT Milagros Velazquez MD POINT OF CARE TEST O RDERABLES Performing Organization Address City/[facility]/ZIP Co de Phone Number [facility] [place] [address] * POCT Glucose (05/03/2020 12:12 AM EDT) Glucose, POC 175 65 - 199 mg/dL [facility] Comment: Supplemental ranges: <140 mg/dL before meals <180 mg/dL all other times of the day Blood specimen (specimen) 05/03/2020 12:12 AM EDT 05/03/2020 12:12 AM EDT Milagros Velazquez MD POINT OF CARE TEST O RDERABLES [facility] [place] [address] * (ABNORMAL) Hemogram (05/02/2020 8:57 PM EDT) White Blood Cell 12.9(H) 4.0 - 9.5 x10(3)/mc L [facility] Red Blood Cell 3.04(L) 4.00 - 5.21 x10(6)/mc L [facility] Hemoglobin 8.3(L) 11.7 - 15.5 gm/dL [facility] Hematocrit 25.9(L) 35.7 - 45.8 % [facility] Mean Cell Volume 85.2 82.6 - 94.4 fL [facility] Mean Cell Hemoglobin 27.3 27.1 - 32.0 pg [facility] Mean Cell Hemoglobin Concentration 32.0 31.7 - 35.0 gm/dL [facility] Platelet 413(H) 145 - 357 x10(3)/mc L [facility] RDW Standard Deviation 45.7 37.0 - 46.0 [facility] RDW coefficient of variation 14.8(H) 11.5 - 14.1 % [facility] Mean Platelet Volume 9.7 7.6 - 12.9 fL [facility] NRBC% auto 0.0 % [facility] NRBC Absolute 0.000 0.000 - 0.000 x10(3)/mc L [facility] Blood specimen (specimen) 05/02/2020 8:57 PM EDT 05/02/2020 9:08 PM EDT Narrative Resulting Agency Comment Spec In Lab Milagros Velazquez MD HEMATOLOGY ORDERABLE S Performing Organization Address [facility] Co de Phone Number [facility] [place] [address] * (ABNORMAL) POCT Glucose (05/02/2020 7:52 PM EDT) Glucose, POC 246(H) 65 - 199 mg/dL [facility] Comment: Supplemental ranges: <140 mg/dL before meals <180 mg/dL all other times of the day Blood specimen (specimen) 05/02/2020 7:52 PM EDT 05/02/2020 7:52 PM EDT Milagros Velazquez MD POINT OF CARE TEST O RDERABLES Performing Organization Address [facility] Co de Phone Number [facility] [place] [address] * (ABNORMAL) POCT Glucose (05/02/2020 4:12 PM EDT) Glucose, POC 227(H) 65 - 199 mg/dL [facility] Comment: Supplemental ranges: <140 mg/dL before meals <180 mg/dL all other times of the day Blood specimen (specimen) 05/02/2020 4:12 PM EDT 05/02/2020 4:12 PM EDT Milagros Velazquez MD POINT OF CARE TEST O RDERATOAN Performing Organization Address [facility] Co de Phone Number [facility] [place] [address] * ABORH Recheck Status (05/02/2020 3:13 PM EDT) ABORH Type Recheck Completed [facility] Blood specimen (specimen) 05/02/2020 3:13 PM EDT 05/02/2020 3:17 PM EDT Narrative Resulting Agency Comment Spec In Lab Wilner Esparza MD BLOOD BANK LAB ORDER JAMIE [facility] [place] [address] * Antibody screen (05/02/2020 3:13 PM EDT) Ab Screen Interp Negative [facility] Expires at [id number] on: 05/05/2020 [facility] Blood specimen (specimen) 05/02/2020 3:13 PM EDT 05/02/2020 3:17 PM EDT Narrative Resulting Agency Comment Spec In Lab Wilner Esparza MD BLOOD BANK LAB ORDER JAMIE [facility] [place] [address] * ABO/Rh Typing (05/02/2020 3:13 PM EDT) Pathologist [facility] ABORH Type O Pos [facility] Blood specimen (specimen) 05/02/2020 3:13 PM EDT 05/02/2020 3:17 PM EDT Narrative Resulting Agency Comment Spec In Lab Wilner Esparza MD BLOOD BANK LAB ORDER JAMIE Performing Organization Address City/[facility]/ZIP Co de Phone Number [facility] [place] [address] * (ABNORMAL) Hemogram (05/02/2020 3:13 PM EDT) [facility] White Blood Cell 11.8(H) 4.0 - 9.5 x10(3)/mc L [facility] Red Blood Cell 3.18(L) 4.00 - 5.21 x10(6)/mc L [facility] Hemoglobin 8.8(L) 11.7 - 15.5 gm/dL [facility] Hematocrit 27.1(L) 35.7 - 45.8 % [facility] Mean Cell Volume 85.2 82.6 - 94.4 fL [facility] Mean Cell Hemoglobin 27.7 27.1 - 32.0 pg [facility] Mean Cell Hemoglobin Concentration 32.5 31.7 - 35.0 gm/dL [facility] Platelet 420(H) 145 - 357 x10(3)/mc L [facility] RDW Standard Deviation 45.7 37.0 - 46.0 fL [facility] RDW coefficient of variation 14.7(H) 11.5 - 14.1 % [facility] Mean Platelet Volume 10.0 7.6 - 12.9 fL [facility] NRBC% auto 0.0 % [facility] NRBC Absolute 0.000 0.000 - 0.000 x10(3)/mc L [facility] Blood specimen (specimen) 05/02/2020 3:13 PM EDT 05/02/2020 3:26 PM EDT Narrative Resulting Agency Comment Spec In Lab Milagros Velazquez MD HEMATOLOGY ORDERABLE S Performing Organization Address City/[facility]/ZIP Co de Phone Number [facility] [place] [address] * (ABNORMAL) POCT Glucose (05/02/2020 11:32 AM EDT) Glucose, POC 233(H) 65 - 199 mg/dL [facility] Comment: Supplemental ranges: <140 mg/dL before meals <180 mg/dL all other times of the day Blood specimen (specimen) 05/02/2020 11:32 AM EDT 05/02/2020 11:32 AM EDT Milagros Velazquez MD POINT OF CARE TEST O RDERABLES [facility] [place] [address] * POCT Glucose (05/02/2020 7:46 AM EDT) Glucose, POC 178 65 - 199 mg/dL [facility] Comment: Supplemental ranges: <140 mg/dL before meals <180 mg/dL all other times of the day Blood specimen (specimen) 05/02/2020 7:46 AM EDT 05/02/2020 7:46 AM EDT Milagros Velazquez MD POINT OF CARE TEST O RDERABLES Performing Organization Address [facility]/ZIP Co de Phone Number [facility] [place] [address] * pro-Brain Natriuretic Peptide (05/02/2020 6:13 AM EDT) [facility] NT-proBNP 248 <=450 pg/mL [facility] Blood specimen (specimen) Venous Draw / Unknown 05/02/2020 6:13 AM EDT 05/02/2020 6:41 AM EDT Narrative Resulting Agency Comment Spec In Lab Milagros Velazquez MD CHEMISTRY ORDERABLES Performing Organization Address City/[facility]/ZIP Co de Phone Number [facility] [place] [address] * (ABNORMAL) Differential, Automated (05/02/2020 6:13 AM EDT) [facility] Neutrophil % 71.3 % [facility] Neutrophil Absolute 9.88(H) 1.70 - 6.10 x10(3)/mc L [facility] Lymph % 18.6 % [facility] Lymphocytes Abs 2.6 0.9 - 3.2 x10(3)/mc L [facility] Monocyte % 6.5 % [facility] Monocyte Abs 0.9 0.3 - 0.9 x10(3)/mc L [facility] Eos % 2.4 % [facility] Eosinophils Abs 0.3 0.0 - 0.4 x10(3)/mc L [facility] Basophil % 0.6 % [facility] Baso Absolute 0.1 0.0 - 0.1 x10(3)/mc L [facility] Immature Gran % 0.60 % [facility] Comment: Immature granulocytes(IG's)percentage and absolute count will include metamyelocytes, myelocytes, and promyelocytes. Blood smears from CBCs yielding IG's will be scanned manually for concordance. If this scan disagrees with the automated IG or if promyelocytes are noted, a manual differential will be performed. Immature Gran Absolute 0.09(H) 0.00 - 0.04 x10(3)/mc L [facility] Blood specimen (specimen) 05/02/2020 6:13 AM EDT 05/02/2020 6:31 AM EDT Narrative Resulting Agency Comment Spec In Lab Davon Leung MD HEMATOLOGY ORDERABLE S [facility] [place] [address] * (ABNORMAL) Hemogram (05/02/2020 6:13 AM EDT) White Blood Cell 13.9(H) 4.0 - 9.5 x10(3)/ L [facility] Red Blood Cell 3.24(L) 4.00 - 5.21 x10(6)/mc L [facility] Hemoglobin 8.9(L) 11.7 - 15.5 gm/dL [facility] Hematocrit 27.5(L) 35.7 - 45.8 % [facility] Mean Cell Volume 84.9 82.6 - 94.4 fL [facility] Mean Cell Hemoglobin 27.5 27.1 - 32.0 pg [facility] Mean Cell Hemoglobin Concentration 32.4 31.7 - 35.0 gm/dL [facility] Platelet 405(H) 145 - 357 x10(3)/mc L [facility] RDW Standard Deviation 45.0 37.0 - 46.0 fL [facility] RDW coefficient of variation 14.7(H) 11.5 - 14.1 % [facility] Mean Platelet Volume 10.2 7.6 - 12.9 fL [facility] NRBC% auto 0.0 % [facility] NRBC Absolute 0.000 0.000 - 0.000 x10(3)/mc L [facility] Blood specimen (specimen) 05/02/2020 6:13 AM EDT 05/02/2020 6:31 AM EDT Narrative Resulting Agency Comment Spec In Lab Davon Leung MD HEMATOLOGY ORDERABLE S Performing Organization Address [facility]/ZIP Co de Phone Number [facility] [place] [address] * Magnesium (05/02/2020 6:13 AM EDT) Pathologist [facility] Magnesium 0.85 0.69 - 1.07 mmol/L [facility] Blood specimen (specimen) 05/02/2020 6:13 AM EDT 05/02/2020 6:31 AM EDT Narrative Resulting Agency Comment Spec In Lab Dale Dash MD CHEMISTRY ORDERABLES Performing Organization Address [facility] Co de Phone Number [facility] [place] [address] * (ABNORMAL) Comprehensive metabolic panel (non-fasting) (05/02/2020 6:13 AM EDT) Glucose 164 65 - 199 mg/dL [facility] Comment:Diabetes: >=200 mg/d L plus symptoms Blood Urea Nitrogen 28(H) 8 - 18 mg/dL [facility] Creatinine 0.78 0.70 - 1.20 mg/dL [facility] Sodium 139 135 - 145 mmol/L [facility] Potassium 4.0 3.5 - 5.0 mmol/L [facility] Comment: Please note: ??Patients with WBC >100,000 may have falsely elevated Potassium levels. ??For accurate Potassium quantification in these patients send serum separator tube (gold top) for subsequent determinations. ??Contact the Clinical Chemistry Laboratory if there are any questions. Chloride 105 98 - 107 mmol/L [facility] Carbon Dioxide 23 22 - 31 mmol/L [facility] Anion Gap 11 5 - 15 mmol/L [facility] Calcium 8.9 8.5 - 10.5 mg/dL [facility] Protein, Total 5.9(L) 6.1 - 8.0 gm/dL [facility] Albumin 3.0(L) 3.2 - 5.2 gm/dL [facility] Aspartate Aminotransferase 9 0 - 30 unit/L [facility] Alanine Aminotransferase 10 0 - 30 unit/L [facility] Alkaline Phosphatase 130(H) 35 - 105 unit/L [facility] Bilirubin, Total 0.4 0.2 - 1.3 mg/dL [facility] Est Glomerular Filtration Rate 72 >=60 mL/min/1. 73 m?? [facility] Comment: The eGFR was calculated using the CKD-EPI equation. As with all creatinine based estimates of kidney function, eGFR values calculated with the CKD-EPI equation are not accurate in patients with acute kidney failure, extremes of body mass or the acutely ill. [email or web address]/[email or web address] eGFR 84 >=60 mL/min/1. 73 m?? [facility] Comment: The eGFR was calculated using the CKD-EPI equation. As with all creatinine based estimates of kidney function, eGFR values calculated with the CKD-EPI equation are not accurate in patients with acute kidney failure, extremes of body mass or the acutely ill. [email or web address] Blood specimen (specimen) 05/02/2020 6:13 AM EDT 05/02/2020 6:31 AM EDT Narrative Resulting Agency Comment Spec In Lab Dale Dash MD CHEMISTRY ORDERABLES [facility] [place] [address] * POCT Glucose (05/02/2020 3:20 AM EDT) Glucose, POC 183 65 - 199 mg/dL [facility] Comment: Supplemental ranges: <140 mg/dL before meals <180 mg/dL all other times of the day Blood specimen (specimen) 05/02/2020 3:20 AM EDT 05/02/2020 3:20 AM EDT Milagros Velazquez MD POINT OF CARE TEST O RDERABLES Performing Organization Address [facility] Co de Phone Number [facility] [place] [address] * (ABNORMAL) POCT Glucose (05/01/2020 11:42 PM EDT) Glucose, POC 224(H) 65 - 199 mg/dL [facility] Comment: Supplemental ranges: <140 mg/dL before meals <180 mg/dL all other times of the day Blood specimen (specimen) 05/01/2020 11:42 PM EDT 05/01/2020 11:42 PM EDT Milagros Velazquez MD POINT OF CARE TEST O RDERATOAN Performing Organization Address [facility] de Phone Number [facility] [place] [address] * (ABNORMAL) POCT Glucose (05/01/2020 8:14 PM EDT) Glucose, POC 202(H) 65 - 199 mg/dL [facility] Comment: Supplemental ranges: <140 mg/dL before meals <180 mg/dL all other times of the day Blood specimen (specimen) 05/01/2020 8:14 PM EDT 05/01/2020 8:14 PM EDT Milagros Velazquez MD POINT OF CARE TEST O RDERABLES [facility] [place] [address] * (ABNORMAL) POCT Glucose (05/01/2020 4:51 PM EDT) Glucose, POC 204(H) 65 - 199 mg/dL [facility] Comment: Supplemental ranges: <140 mg/dL before meals <180 mg/dL all other times of the day Blood specimen (specimen) 05/01/2020 4:51 PM EDT 05/01/2020 4:51 PM EDT Milagros Velazquez MD POINT OF CARE TEST O ISAIAH Performing Organization Address [facility] de Phone Number [facility] [place] [address] * (ABNORMAL) POCT Glucose (05/01/2020 11:52 AM EDT) Glucose, POC 213(H) 65 - 199 mg/dL [facility] Comment: Supplemental ranges: <140 mg/dL before meals <180 mg/dL all other times of the day Blood specimen (specimen) 05/01/2020 11:52 AM EDT 05/01/2020 11:52 AM EDT Milagros Velazquez MD POINT OF CARE TEST Gage COLON Performing Organization Address [facility] Co de Phone Number [facility] [place] [address] * POCT Glucose (05/01/2020 7:40 AM EDT) Glucose, POC 167 65 - 199 mg/dL [facility] Comment: Supplemental ranges: <140 mg/dL before meals <180 mg/dL all other times of the day Blood specimen (specimen) 05/01/2020 7:40 AM EDT 05/01/2020 7:40 AM EDT Dale Dash MD POINT OF CARE TEST O RDERABLES Performing Organization Address City/[facility]/ZIP Co de Phone Number [facility] [place] [address] * (ABNORMAL) Differential, Automated (05/01/2020 5:23 AM EDT) Neutrophil % 74.6 % [facility] Neutrophil Absolute 10.06(H) 1.70 - 6.10 x10(3)/mc L [facility] Lymph % 14.7 % [facility] Lymphocytes Abs 2.0 0.9 - 3.2 x10(3)/ L [facility] Monocyte % 6.9 % [facility] Monocyte Abs 0.9 0.3 - 0.9 x10(3)/ L [facility] Eos % 2.3 % [facility] Eosinophils Abs 0.3 0.0 - 0.4 x10(3)/[facility] Basophil % 0.5 % [facility] Baso Absolute 0.1 0.0 - 0.1 x10(3)/ L [facility] Immature Gran % 1.00 % [facility] Comment: Immature granulocytes(IG's)percentage and absolute count will include metamyelocytes, myelocytes, and promyelocytes. Blood smears from CBCs yielding IG's will be scanned manually for concordance. If this scan disagrees with the automated IG or if promyelocytes are noted, a manual differential will be performed. Immature Gran Absolute 0.14(H) 0.00 - 0.04 x10(3)/mc L [facility] Blood specimen (specimen) 05/01/2020 5:23 AM EDT 05/01/2020 5:40 AM EDT Narrative Resulting Agency Comment Spec In Lab Davon Leung MD HEMATOLOGY ORDERABLE S Performing Organization Address City/[facility]/ZIP Co de Phone Number [facility] [place] [address] * (ABNORMAL) Hemogram (05/01/2020 5:23 AM EDT) White Blood Cell 13.5(H) 4.0 - 9.5 x10(3)/ L [facility] Red Blood Cell 3.38(L) 4.00 - 5.21 x10(6)/mc L [facility] Hemoglobin 9.2(L) 11.7 - 15.5 gm/dL [facility] Hematocrit 28.6(L) 35.7 - 45.8 % [facility] Mean Cell Volume 84.6 82.6 - 94.4 fL [facility] Mean Cell Hemoglobin 27.2 27.1 - 32.0 pg [facility] Mean Cell Hemoglobin Concentration 32.2 31.7 - 35.0 gm/dL [facility] Platelet 372(H) 145 - 357 x10(3)/[facility] LABORATORY RDW Standard Deviation 45.1 37.0 - 46.0 [facility] RDW coefficient of variation 14.7(H) 11.5 - 14.1 % [facility] Mean Platelet Volume 9.9 7.6 - 12.9 fL [facility] NRBC% auto 0.0 % [facility] NRBC Absolute 0.000 0.000 - 0.000 x10(3)/[facility] Blood specimen (specimen) 05/01/2020 5:23 AM EDT 05/01/2020 5:40 AM EDT Narrative Resulting Agency Comment Spec In Lab Davon Leung MD HEMATOLOGY ORDERABLE S [facility] [place] [address] * Magnesium (05/01/2020 5:23 AM EDT) Magnesium 0.89 0.69 - 1.07 mmol/L [facility] Blood specimen (specimen) 05/01/2020 5:23 AM EDT 05/01/2020 5:40 AM EDT Narrative Resulting Agency Comment Spec In Lab Dale Dash MD CHEMISTRY ORDERABLES [facility] [place] [address] * (ABNORMAL) Comprehensive metabolic panel (non-fasting) (05/01/2020 5:23 AM EDT) Glucose 170 65 - 199 mg/dL [facility] Comment:Diabetes: >=200 mg/d L plus symptoms Blood Urea Nitrogen 29(H) 8 - 18 mg/dL [facility] Creatinine 0.77 0.70 - 1.20 mg/dL [facility] Sodium 136 135 - 145 mmol/L [facility] Potassium 4.0 3.5 - 5.0 mmol/L [facility] Comment: Please note: ??Patients with WBC >100,000 may have falsely elevated Potassium levels. ??For accurate Potassium quantification in these patients send serum separator tube (gold top) for subsequent determinations. ??Contact the Clinical Chemistry Laboratory if there are any questions. Chloride 104 98 - 107 mmol/L [facility] Carbon Dioxide 22 22 - 31 mmol/L [facility] Anion Gap 10 5 - 15 mmol/L [facility] Calcium 8.8 8.5 - 10.5 mg/dL [facility] Protein, Total 6.1 6.1 - 8.0 gm/dL [facility] Albumin 2.9(L) 3.2 - 5.2 gm/dL [facility] Aspartate Aminotransferase 10 0 - 30 unit/L [facility] Alanine Aminotransferase 11 0 - 30 unit/L [facility] Alkaline Phosphatase 140(H) 35 - 105 unit/L [facility] Bilirubin, Total 0.4 0.2 - 1.3 mg/dL [facility] Est Glomerular Filtration Rate 73 >=60 mL/min/1. 73 m?? [facility] Comment: The eGFR was calculated using the CKD-EPI equation. As with all creatinine based estimates of kidney function, eGFR values calculated with the CKD-EPI equation are not accurate in patients with acute kidney failure, extremes of body mass or the acutely ill. [email or web address]/[facility]ISnkf eGFR 85 >=60 mL/min/1. 73 m?? [facility] Comment: The eGFR was calculated using the CKD-EPI equation. As with all creatinine based estimates of kidney function, eGFR values calculated with the CKD-EPI equation are not accurate in patients with acute kidney failure, extremes of body mass or the acutely ill. [email or web address]/[facility]ISnkf Blood specimen (specimen) 05/01/2020 5:23 AM EDT 05/01/2020 5:40 AM EDT Narrative Resulting Agency Comment Spec In Lab Dale Dash MD CHEMISTRY ORDERABLES Performing Organization Address [facility]/ZIP Co de Phone Number [facility] [place] [address] * (ABNORMAL) POCT Glucose (05/01/2020 4:07 AM EDT) Glucose, POC 204(H) 65 - 199 mg/dL [facility] Comment: Supplemental ranges: <140 mg/dL before meals <180 mg/dL all other times of the day Blood specimen (specimen) 05/01/2020 4:07 AM EDT 05/01/2020 4:07 AM EDT Dale Dash MD POINT OF CARE TEST O RDERABLES Performing Organization Address City/[facility]/ZIP Co de Phone Number [facility] [place] [address] * POCT Glucose (04/30/2020 11:31 PM EDT) Glucose, POC 196 65 - 199 mg/dL [facility] Comment: Supplemental ranges: <140 mg/dL before meals <180 mg/dL all other times of the day Blood specimen (specimen) 04/30/2020 11:31 PM EDT 04/30/2020 11:31 PM EDT Dale Dash MD POINT OF CARE TEST O RDERATOAN Performing Organization Address [facility]/ZIP Co de Phone Number [facility] [place] [address] * (ABNORMAL) POCT Glucose (04/30/2020 8:15 PM EDT) Glucose, POC 210(H) 65 - 199 mg/dL [facility] Comment: Supplemental ranges: <140 mg/dL before meals <180 mg/dL all other times of the day Blood specimen (specimen) 04/30/2020 8:15 PM EDT 04/30/2020 8:15 PM EDT Dale Dash MD POINT OF CARE TEST O RDERATOAN Performing Organization Address [facility] Co de Phone Number [facility] [place] [address] * (ABNORMAL) POCT Glucose (04/30/2020 3:37 PM EDT) Glucose, POC 200(H) 65 - 199 mg/dL [facility] Comment: Supplemental ranges: <140 mg/dL before meals <180 mg/dL all other times of the day Blood specimen (specimen) 04/30/2020 3:37 PM EDT 04/30/2020 3:37 PM EDT Dale Dash MD POINT OF CARE TEST O RDERABLES Performing Organization Address [facility] Co de Phone Number [facility] [place] [address] * (ABNORMAL) POCT Glucose (04/30/2020 11:38 AM EDT) Glucose, POC 258(H) 65 - 199 mg/dL [facility] Comment: Supplemental ranges: <140 mg/dL before meals <180 mg/dL all other times of the day Blood specimen (specimen) 04/30/2020 11:38 AM EDT 04/30/2020 11:38 AM EDT Dale Dash MD POINT OF CARE TEST O RDROBIN Performing Organization Address [facility] de Phone Number [facility] [place] [address] * EKG 12 Lead (04/30/2020 8:01 AM EDT) Ventricular rate 56 BPM MUSE SYSTEM Atrial Rate 56 BPM MUSE SYSTEM P-R Interval 158 ms MUSE SYSTEM QRS Duration 116 ms MUSE SYSTEM Q-T Interval 512 ms MUSE SYSTEM QTC Calculated (Bezet) 494 ms MUSE SYSTEM Calculated P [place] 18 degrees MUSE SYSTEM Calculated R [place] 9 degrees MUSE SYSTEM Calculated T [place] -21 degrees MUSE SYSTEM INTERPRETATION Sinus bradycardia Right bundle branch block Abnormal ECG When compared with ECG of 21-APR-2020 18:47, Vent. rate has decreased BY ??41 BPM Left axis deviation is no longer Present I personally reviewed the tracing and edited the fellows interpretation Confirmed by fellow Ross Sood ([id number]) on 04/30/2020 10:25:30 AM Confirmed by MD Ya, Manish ([id number]) on 04/30/2020 4:45:51 PM MUSE SYSTEM 04/30/2020 8:01 AM EDT 04/30/2020 4:45 PM EDT Dale Dash MD ECG ORDERABLES Performing Organization Address [facility] de Phone Number MUSE SYSTEM * POCT Glucose (04/30/2020 7:18 AM EDT) Glucose, POC 166 65 - 199 mg/dL [facility] Comment: Supplemental ranges: <140 mg/dL before meals <180 mg/dL all other times of the day Blood specimen (specimen) 04/30/2020 7:18 AM EDT 04/30/2020 7:18 AM EDT Dale Dash MD POINT OF CARE TEST O RDERABLES Performing Organization Address City/[facility]/ZIP Co de Phone Number [facility] [place] [address] * (ABNORMAL) Differential, Automated (04/30/2020 6:36 AM EDT) Neutrophil % 75.5 % [facility] Neutrophil Absolute 13.00(H) 1.70 - 6.10 x10(3)/mc L [facility] Lymph % 12.6 % [facility] Lymphocytes Abs 2.2 0.9 - 3.2 x10(3)/mc L [facility] Monocyte % 7.6 % [facility] Monocyte Abs 1.3(H) 0.3 - 0.9 x10(3)/mc L [facility] Eos % 2.6 % [facility] Eosinophils Abs 0.4 0.0 - 0.4 x10(3)/ L [facility] Basophil % 0.5 % [facility] Baso Absolute 0.1 0.0 - 0.1 x10(3)/mc L [facility] Immature Gran % 1.20 % [facility] Comment: Immature granulocytes(IG's)percentage and absolute count will include metamyelocytes, myelocytes, and promyelocytes. Blood smears from CBCs yielding IG's will be scanned manually for concordance. If this scan disagrees with the automated IG or if promyelocytes are noted, a manual differential will be performed. Immature Gran Absolute 0.20(H) 0.00 - 0.04 x10(3)/mc L [facility] Blood specimen (specimen) 04/30/2020 6:36 AM EDT 04/30/2020 6:44 AM EDT Narrative Resulting Agency Comment Spec In Lab Davon Leung MD HEMATOLOGY ORDERABLE S Performing Organization Address City/[facility] [facility]/ZIP Co de Phone Number [facility] [place] [address] * (ABNORMAL) Hemogram (04/30/2020 6:36 AM EDT) White Blood Cell 17.2(H) 4.0 - 9.5 x10(3)/mc L [facility] Red Blood Cell 3.60(L) 4.00 - 5.21 x10(6)/mc L [facility] Hemoglobin 9.7(L) 11.7 - 15.5 gm/dL [facility] Hematocrit 31.1(L) 35.7 - 45.8 % [facility] Mean Cell Volume 86.4 82.6 - 94.4 fL [facility] Mean Cell Hemoglobin 26.9(L) 27.1 - 32.0 pg [facility] Mean Cell Hemoglobin Concentration 31.2(L) 31.7 - 35.0 gm/dL [facility] Platelet 375(H) 145 - 357 x10(3)/ L [facility] RDW Standard Deviation 47.2(H) 37.0 - 46.0 fL [facility] RDW coefficient of variation 14.9(H) 11.5 - 14.1 % [facility] Mean Platelet Volume 9.7 7.6 - 12.9 fL [facility] NRBC% auto 0.0 % [facility] NRBC Absolute 0.000 0.000 - 0.000 x10(3)/ L [facility] Blood specimen (specimen) 04/30/2020 6:36 AM EDT 04/30/2020 6:44 AM EDT Narrative Resulting Agency Comment Spec In Lab Davon Leung MD HEMATOLOGY ORDERABLE S [facility] [place] [address] * Magnesium (04/30/2020 6:36 AM EDT) Magnesium 0.94 0.69 - 1.07 mmol/L [facility] Blood specimen (specimen) 04/30/2020 6:36 AM EDT 04/30/2020 6:44 AM EDT Narrative Resulting Agency Comment Spec In Lab Dale Dash MD CHEMISTRY ORDERABLES [facility] [place] [address] * (ABNORMAL) Comprehensive metabolic panel (non-fasting) (04/30/2020 6:36 AM EDT) Glucose 166 65 - 199 mg/dL [facility] Comment:Diabetes: >=200 mg/d L plus symptoms Blood Urea Nitrogen 34(H) 8 - 18 mg/dL [facility] Creatinine 1.05 0.70 - 1.20 mg/dL [facility] Sodium 135 135 - 145 mmol/L [facility] Potassium 3.8 3.5 - 5.0 mmol/L [facility] Comment: Please note: ??Patients with WBC >100,000 may have falsely elevated Potassium levels. ??For accurate Potassium quantification in these patients send serum separator tube (gold top) for subsequent determinations. ??Contact the Clinical Chemistry Laboratory if there are any questions. Chloride 100 98 - 107 mmol/L [facility] Carbon Dioxide 22 22 - 31 mmol/L [facility] Anion Gap 13 5 - 15 mmol/L [facility] Calcium 8.5 8.5 - 10.5 mg/dL [facility] Protein, Total 6.3 6.1 - 8.0 gm/dL [facility] Albumin 3.1(L) 3.2 - 5.2 gm/dL [facility] Aspartate Aminotransferase 14 0 - 30 unit/L [facility] Alanine Aminotransferase 12 0 - 30 unit/L [facility] Alkaline Phosphatase 152(H) 35 - 105 unit/L [facility] Bilirubin, Total 0.6 0.2 - 1.3 mg/dL [facility] Est Glomerular Filtration Rate 50(L) >=60 mL/min/1. 73 m?? [facility] Comment: The eGFR was calculated using the CKD-EPI equation. As with all creatinine based estimates of kidney function, eGFR values calculated with the CKD-EPI equation are not accurate in patients with acute kidney failure, extremes of body mass or the acutely ill. http://[email or web address]/[facility] eGFR 58(L) >=60 mL/min/1. 73 m?? [facility] Comment: The eGFR was calculated using the CKD-EPI equation. As with all creatinine based estimates of kidney function, eGFR values calculated with the CKD-EPI equation are not accurate in patients with acute kidney failure, extremes of body mass or the acutely ill. http://[email or web address]/[facility] Blood specimen (specimen) 04/30/2020 6:36 AM EDT 04/30/2020 6:44 AM EDT Narrative Resulting Agency Comment Spec In Lab Dale Dash MD CHEMISTRY ORDERABLES Performing Organization Address [facility] Co de Phone Number [facility] [place] [address] * POCT Glucose (04/30/2020 4:14 AM EDT) Glucose, POC 190 65 - 199 mg/dL [facility] Comment: Supplemental ranges: <140 mg/dL before meals <180 mg/dL all other times of the day Blood specimen (specimen) 04/30/2020 4:14 AM EDT 04/30/2020 4:14 AM EDT Dale Dash MD POINT OF CARE TEST O RDERABLES Performing Organization Address [facility]/ZIP Co de Phone Number [facility] [place] [address] * (ABNORMAL) POCT Glucose (04/29/2020 11:08 PM EDT) Glucose, POC 218(H) 65 - 199 mg/dL [facility] Comment: Supplemental ranges: <140 mg/dL before meals <180 mg/dL all other times of the day Blood specimen (specimen) 04/29/2020 11:08 PM EDT 04/29/2020 11:08 PM EDT Dale Dash MD POINT OF CARE TEST O ISAIAH [facility] [place] [address] * (ABNORMAL) POCT Glucose (04/29/2020 7:52 PM EDT) Glucose, POC 204(H) 65 - 199 mg/dL [facility] Comment: Supplemental ranges: <140 mg/dL before meals <180 mg/dL all other times of the day Blood specimen (specimen) 04/29/2020 7:52 PM EDT 04/29/2020 7:52 PM EDT Dale Dash MD POINT OF CARE TEST O ISAIAH Performing Organization Address [facility]/ZIP Co de Phone Number [facility] [place] [address] * POCT Glucose (04/29/2020 4:17 PM EDT) Glucose, POC 165 65 - 199 mg/dL [facility] Comment: Supplemental ranges: <140 mg/dL before meals <180 mg/dL all other times of the day Blood specimen (specimen) 04/29/2020 4:17 PM EDT 04/29/2020 4:17 PM EDT Dale Dash MD POINT OF CARE TEST O ISAIAH [facility] [place] [address] * Blood culture (04/29/2020 3:28 PM EDT) Blood Culture No growth at 5 days. [facility] Blood specimen (specimen) STRUCTURE OF RIGHT HAND / Unknown 04/29/2020 3:28 PM EDT 04/29/2020 4:21 PM EDT Narrative Resulting Agency Comment Spec In Lab Dale Dash MD MICROBIOLOGY - BLOOD ORDERABLES Performing Organization Address [facility]/ZIP Co de Phone Number [facility] [place] [address] * Blood culture (04/29/2020 3:28 PM EDT) Blood Culture No growth at 5 days. [facility] Blood specimen (specimen) STRUCTURE OF LEFT FOREARM / Unknown 04/29/2020 3:28 PM EDT 04/29/2020 4:21 PM EDT Comment:#1 Narrative Resulting Agency Comment Spec In Lab Dale Dash MD MICROBIOLOGY - BLOOD ORDERABLES Performing Organization Address [facility] Co de Phone Number [facility] [place] [place] [address] * (ABNORMAL) POCT Glucose (04/29/2020 11:55 AM EDT) Glucose, POC 227(H) 65 - 199 mg/dL [facility] Comment: Supplemental ranges: <140 mg/dL before meals <180 mg/dL all other times of the day Blood specimen (specimen) 04/29/2020 11:55 AM EDT 04/29/2020 11:55 AM EDT Dale Dash MD POINT OF CARE TEST O RDERABLES Performing Organization Address [facility] Co de Phone Number [facility] [place] [place] [address] * POCT Glucose (04/29/2020 7:38 AM EDT) Glucose, POC 125 65 - 199 mg/dL [facility] Comment: Supplemental ranges: <140 mg/dL before meals <180 mg/dL all other times of the day Blood specimen (specimen) 04/29/2020 7:38 AM EDT 04/29/2020 7:38 AM EDT Dale Dash MD POINT OF CARE TEST O RDERABLES [facility] [place] [address] * (ABNORMAL) Differential, Automated (04/29/2020 4:17 AM EDT) Neutrophil % 78.6 % [facility] Neutrophil Absolute 14.16(H) 1.70 - 6.10 x10(3)/ L [facility] Lymph % 10.5 % [facility] Lymphocytes Abs 1.9 0.9 - 3.2 x10(3)/ L [facility] Monocyte % 6.4 % [facility] Monocyte Abs 1.2(H) 0.3 - 0.9 x10(3)/ L [facility] Eos % 2.1 % [facility] Eosinophils Abs 0.4 0.0 - 0.4 x10(3)/[facility] Basophil % 0.6 % [facility] Baso Absolute 0.1 0.0 - 0.1 x10(3)/mc L [facility] Immature Gran % 1.80 % [facility] Comment: Immature granulocytes(IG's)percentage and absolute count will include metamyelocytes, myelocytes, and promyelocytes. Blood smears from CBCs yielding IG's will be scanned manually for concordance. If this scan disagrees with the automated IG or if promyelocytes are noted, a manual differential will be performed. Immature Gran Absolute 0.32(H) 0.00 - 0.04 x10(3)/ L [facility] Blood specimen (specimen) 04/29/2020 4:17 AM EDT 04/29/2020 4:47 AM EDT Narrative Resulting Agency Comment Spec In Lab Davon Leung MD HEMATOLOGY ORDERABLE S Performing Organization Address City/[facility]/ZIP Co de Phone Number [facility] [place] [address] * (ABNORMAL) Hemogram (04/29/2020 4:17 AM EDT) White Blood Cell 18.0(H) 4.0 - 9.5 x10(3)/mc L [facility] Red Blood Cell 3.63(L) 4.00 - 5.21 x10(6)/mc L [facility] Hemoglobin 9.8(L) 11.7 - 15.5 gm/dL [facility] Hematocrit 30.1(L) 35.7 - 45.8 % [facility] Mean Cell Volume 82.9 82.6 - 94.4 fL [facility] Mean Cell Hemoglobin 27.0(L) 27.1 - 32.0 pg [facility] Mean Cell Hemoglobin Concentration 32.6 31.7 - 35.0 gm/dL [facility] Platelet 397(H) 145 - 357 x10(3)/mc L [facility] RDW Standard Deviation 44.8 37.0 - 46.0 fL [facility] RDW coefficient of variation 14.8(H) 11.5 - 14.1 % [facility] Mean Platelet Volume 9.7 7.6 - 12.9 fL [facility] NRBC% auto 0.0 % [facility] NRBC Absolute 0.000 0.000 - 0.000 x10(3)/mc L [facility] Blood specimen (specimen) 04/29/2020 4:17 AM EDT 04/29/2020 4:47 AM EDT Narrative Resulting Agency Comment Spec In Lab Davon Leung MD HEMATOLOGY ORDERABLE S [facility] [place] [address] * Magnesium (04/29/2020 4:17 AM EDT) Magnesium 0.83 0.69 - 1.07 mmol/L [facility] Blood specimen (specimen) 04/29/2020 4:17 AM EDT 04/29/2020 4:47 AM EDT Narrative Resulting Agency Comment Spec In Lab Dale Dash MD CHEMISTRY ORDERABLES [facility] [place] [address] * (ABNORMAL) Comprehensive metabolic panel (non-fasting) (04/29/2020 4:17 AM EDT) Glucose 152 65 - 199 mg/dL [facility] Comment:Diabetes: >=200 mg/d L plus symptoms Blood Urea Nitrogen 28(H) 8 - 18 mg/dL [facility] Comment:result rechecked-ssd Creatinine 0.96 0.70 - 1.20 mg/dL [facility] Sodium 136 135 - 145 mmol/L [facility] Potassium 3.9 3.5 - 5.0 mmol/L [facility] Comment: Please note: ??Patients with WBC >100,000 may have falsely elevated Potassium levels. ??For accurate Potassium quantification in these patients send serum separator tube (gold top) for subsequent determinations. ??Contact the Clinical Chemistry Laboratory if there are any questions. Chloride 103 98 - 107 mmol/L [facility] Carbon Dioxide 22 22 - 31 mmol/L [facility] Anion Gap 11 5 - 15 mmol/L [facility] Calcium 8.5 8.5 - 10.5 mg/dL [facility] Protein, Total 6.0(L) 6.1 - 8.0 gm/dL [facility] Albumin 2.8(L) 3.2 - 5.2 gm/dL [facility] Aspartate Aminotransferase 15 0 - 30 unit/L [facility] Alanine Aminotransferase 16 0 - 30 unit/L [facility] Alkaline Phosphatase 177(H) 35 - 105 unit/L [facility] Bilirubin, Total 0.5 0.2 - 1.3 mg/dL [facility] Est Glomerular Filtration Rate 56(L) >=60 mL/min/1. 73 m?? [facility] Comment: The eGFR was calculated using the CKD-EPI equation. As with all creatinine based estimates of kidney function, eGFR values calculated with the CKD-EPI equation are not accurate in patients with acute kidney failure, extremes of body mass or the acutely ill. http://[employer]/[facility]f eGFR 65 >=60 mL/min/1. 73 m?? [facility] Comment: The eGFR was calculated using the CKD-EPI equation. As with all creatinine based estimates of kidney function, eGFR values calculated with the CKD-EPI equation are not accurate in patients with acute kidney failure, extremes of body mass or the acutely ill. http://[email or web address]/[facility]f Blood specimen (specimen) 04/29/2020 4:17 AM EDT 04/29/2020 4:47 AM EDT Narrative Resulting Agency Comment Spec In Lab Dale Dash MD CHEMISTRY ORDERABLES Performing Organization Address [facility] Co de Phone Number [facility] [place] [address] * POCT Glucose (04/29/2020 4:16 AM EDT) Glucose, POC 152 65 - 199 mg/dL [facility] Comment: Supplemental ranges: <140 mg/dL before meals <180 mg/dL all other times of the day Blood specimen (specimen) 04/29/2020 4:16 AM EDT 04/29/2020 4:16 AM EDT Dale Dash MD POINT OF CARE TEST O RDERABLES Performing Organization Address City/[facility]/ZIP Co de Phone Number [facility] [place] [address] * POCT Glucose (04/29/2020 12:34 AM EDT) Glucose, POC 171 65 - 199 mg/dL [facility] Comment: Supplemental ranges: <140 mg/dL before meals <180 mg/dL all other times of the day Blood specimen (specimen) 04/29/2020 12:34 AM EDT 04/29/2020 12:34 AM EDT Dale Dash MD POINT OF CARE TEST O RDROBIN [facility] [place] [address] * (ABNORMAL) POCT Glucose (04/28/2020 8:36 PM EDT) Glucose, POC 205(H) 65 - 199 mg/dL [facility] Comment: Supplemental ranges: <140 mg/dL before meals <180 mg/dL all other times of the day Blood specimen (specimen) 04/28/2020 8:36 PM EDT 04/28/2020 8:36 PM EDT Dale Dash MD POINT OF CARE TEST O ISAIAH Performing Organization Address [facility]/ZIP Co de Phone Number [facility] [place] [address] * POCT Glucose (04/28/2020 4:05 PM EDT) Glucose, POC 185 65 - 199 mg/dL [facility] Comment: Supplemental ranges: <140 mg/dL before meals <180 mg/dL all other times of the day Blood specimen (specimen) 04/28/2020 4:05 PM EDT 04/28/2020 4:05 PM EDT Abiodun Chun MD POINT OF CARE TEST O RDERABLES Performing Organization Address City/[facility]/ZIP Co de Phone Number [facility] [place] [address] * POCT Glucose (04/28/2020 12:47 PM EDT) Glucose, POC 135 65 - 199 mg/dL [facility] Comment: Supplemental ranges: <140 mg/dL before meals <180 mg/dL all other times of the day Blood specimen (specimen) 04/28/2020 12:47 PM EDT 04/28/2020 12:47 PM EDT Abiodun Chun MD POINT OF CARE TEST O ISAIAH Performing Organization Address [facility] Co de Phone Number [facility] [place] [address] * POCT Glucose (04/28/2020 10:23 AM EDT) Glucose, POC 150 65 - 199 mg/dL [facility] Comment: Supplemental ranges: <140 mg/dL before meals <180 mg/dL all other times of the day Blood specimen (specimen) 04/28/2020 10:23 AM EDT 04/28/2020 10:23 AM EDT Abiodun Chun MD POINT OF CARE TEST O ISAIAH Performing Organization Address [facility] de Phone Number [facility] [place] [address] * CT Guided Drain Peritoneal (04/28/2020 10:20 [...] approximately 2-3 weeks (already ordered by IR). Orthopedics Pediatric Physician(s): Resident/Fellow: None. Attending: Dr. Jos Collins Procedure/Teaching Attestation: ??I performed the procedure. Moderate Sedation Attestation: I was present during the intra-service time as documented by IR nurse. Thank you for letting us participate in the care of this patient. For questions regarding this report, please contact the number below. ? Electronically signed by: Jos Collins [facility] ([phone]), at 04/28/2020 10:42 AM Narrative 04/28/2020 10:42 [...] in approximately 2-3 weeks (alreadyordered by IR). Orthopedics Pediatric Physician(s): Resident/Fellow: None. Attending: Dr. Jos Collins Procedure/Teaching Attestation: I performed the procedure. Moderate Sedation Attestation: I was present during the intra-service timeas documented by IR nurse. Thank you for letting us participate in the care of this patient. Forquestions regarding this report, please contact the number below. Electronically signed by: Jos Collins, [facility]([phone]), at 04/28/2020 10:42 AM Abiodun Chun MD IMG CT ORDERABLES * Anaerobic Culture (04/28/2020 10:00 AM EDT) Anaerobic Culture No anaerobic organisms isolated [facility] Fluid specimen (specimen) 04/28/2020 10:00 AM EDT 04/28/2020 10:50 AM EDT Comment:ARABELLA-HEPATIC ABSCESS S, CT GUIDED DRAIN PLACEMENT Narrative Resulting Agency Comment Spec In Lab Jeevan Black MD MICROBIOLOGY - GENER AL ORDERABLES [facility] [place] [address] * (ABNORMAL) Body Fluid Culture, Aerobic (04/28/2020 10:00 AM EDT) Body Fluid Culture One colony of Raoultella ornithinolytica (Klebsiella ornithinolytica)(A ) [facility] Gram Stain Few Neutrophils seen No microorganisms seen. (A) [facility] Organism Raoultella ornithinolytica (Klebsiella ornithinolytica)(A ) [facility] Fluid specimen (specimen) 04/28/2020 10:00 [...] Black MD MICROBIOLOGY - GENER AL ORDERABLES [facility] [place] [address] * POCT Glucose (04/28/2020 8:10 AM EDT) Glucose, POC 134 65 - 199 mg/dL [facility] Comment: Supplemental ranges: <140 mg/dL before meals <180 mg/dL all other times of the day Blood specimen (specimen) 04/28/2020 8:10 AM EDT 04/28/2020 8:10 AM EDT Abiodun Chun MD POINT OF CARE TEST O RDERABLES Performing Organization Address City/[facility]/[place] [address] * (ABNORMAL) pro-Brain Natriuretic Peptide (04/28/2020 4:05 AM EDT) [facility] NT-proBNP 852(H) <=450 pg/mL [facility] Blood specimen (specimen) Venous Draw / Unknown 04/28/2020 4:05 AM EDT 04/28/2020 4:25 AM EDT Narrative Resulting Agency Comment Spec In Lab Hong Levi MD CHEMISTRY ORDERABLES Performing Organization Address [facility] Co de Phone Number [facility] [place] [address] * (ABNORMAL) Differential, Automated (04/28/2020 4:05 AM EDT) [facility] Neutrophil % 71.3 % [facility] Neutrophil Absolute 10.55(H) 1.70 - 6.10 x10(3)/mc L [facility] Lymph % 17.3 % [facility] Lymphocytes Abs 2.6 0.9 - 3.2 x10(3)/mc L [facility] Monocyte % 5.5 % [facility] Monocyte Abs 0.8 0.3 - 0.9 x10(3)/mc L [facility] Eos % 2.8 % [facility] Eosinophils Abs 0.4 0.0 - 0.4 x10(3)/mc L [facility] Basophil % 0.5 % [facility] Baso Absolute 0.1 0.0 - 0.1 x10(3)/mc L [facility] Immature Gran % 2.60 % [facility] Comment: Immature granulocytes(IG's)percentage and absolute count will include metamyelocytes, myelocytes, and promyelocytes. Blood smears from CBCs yielding IG's will be scanned manually for concordance. If this scan disagrees with the automated IG or if promyelocytes are noted, a manual differential will be performed. Immature Gran Absolute 0.39(H) 0.00 - 0.04 x10(3)/ L [facility] Blood specimen (specimen) 04/28/2020 4:05 AM EDT 04/28/2020 4:23 AM EDT Narrative Resulting Agency Comment Spec In Lab Hong Levi MD HEMATOLOGY ORDERABLE S [facility] [place] [address] * (ABNORMAL) Hemogram (04/28/2020 4:05 AM EDT) White Blood Cell 14.8(H) 4.0 - 9.5 x10(3)/mc L [facility] Red Blood Cell 3.90(L) 4.00 - 5.21 x10(6)/mc L [facility] Hemoglobin 10.5(L) 11.7 - 15.5 gm/dL [facility] Hematocrit 32.5(L) 35.7 - 45.8 % [facility] Mean Cell Volume 83.3 82.6 - 94.4 fL [facility] Mean Cell Hemoglobin 26.9(L) 27.1 - 32.0 pg [facility] Mean Cell Hemoglobin Concentration 32.3 31.7 - 35.0 gm/dL [facility] Platelet 421(H) 145 - 357 x10(3)/mc L [facility] RDW Standard Deviation 44.7 37.0 - 46.0 fL [facility] RDW coefficient of variation 14.6(H) 11.5 - 14.1 % [facility] Mean Platelet Volume 9.6 7.6 - 12.9 fL [facility] NRBC% auto 0.0 % [facility] NRBC Absolute 0.000 0.000 - 0.000 x10(3)/mc L [facility] Blood specimen (specimen) 04/28/2020 4:05 AM EDT 04/28/2020 4:23 AM EDT Narrative Resulting Agency Comment Spec In Lab Hong Levi MD HEMATOLOGY ORDERABLE S Performing Organization Address City/[facility]/ZIP Co de Phone Number [facility] [place] [address] * Magnesium (04/28/2020 4:05 AM EDT) Magnesium 0.78 0.69 - 1.07 mmol/L [facility] Blood specimen (specimen) 04/28/2020 4:05 AM EDT 04/28/2020 4:23 AM EDT Narrative Resulting Agency Comment Spec In Lab Dale Dash MD CHEMISTRY ORDERABLES Performing Organization Address [facility]/ZIP Co de Phone Number [facility] [place] [address] * (ABNORMAL) Comprehensive metabolic panel (non-fasting) (04/28/2020 4:05 AM EDT) Glucose 149 65 - 199 mg/dL [facility] Comment:Diabetes: >=200 mg/d L plus symptoms Blood Urea Nitrogen 16 8 - 18 mg/dL [facility] Creatinine 0.80 0.70 - 1.20 mg/dL [facility] Sodium 137 135 - 145 mmol/L [facility] Potassium 3.5 3.5 - 5.0 mmol/L [facility] Comment: Please note: ??Patients with WBC >100,000 may have falsely elevated Potassium levels. ??For accurate Potassium quantification in these patients send serum separator tube (gold top) for subsequent determinations. ??Contact the Clinical Chemistry Laboratory if there are any questions. Chloride 105 98 - 107 mmol/L [facility] [facility] Carbon Dioxide 21(L) 22 - 31 mmol/L [facility] Anion Gap 11 5 - 15 mmol/L [facility] Calcium 8.7 8.5 - 10.5 mg/dL [facility] Protein, Total 6.3 6.1 - 8.0 gm/dL [facility] Albumin 3.0(L) 3.2 - 5.2 gm/dL [facility] Aspartate Aminotransferase 12 0 - 30 unit/L [facility] Alanine Aminotransferase 12 0 - 30 unit/L [facility] Alkaline Phosphatase 201(H) 35 - 105 unit/L [facility] Bilirubin, Total 0.4 0.2 - 1.3 mg/dL [facility] Est Glomerular Filtration Rate 70 >=60 mL/min/1. 73 m?? [facility] Comment: The eGFR was calculated using the CKD-EPI equation. As with all creatinine based estimates of kidney function, eGFR values calculated with the CKD-EPI equation are not accurate in patients with acute kidney failure, extremes of body mass or the acutely ill. [email or web address]/[facility] eGFR 81 >=60 mL/min/1. 73 m?? [facility] Comment: The eGFR was calculated using the CKD-EPI equation. As with all creatinine based estimates of kidney function, eGFR values calculated with the CKD-EPI equation are not accurate in patients with acute kidney failure, extremes of body mass or the acutely ill. [email or web address] Blood specimen (specimen) 04/28/2020 4:05 AM EDT 04/28/2020 4:23 AM EDT Narrative Resulting Agency Comment Spec In Lab Dale Dash MD CHEMISTRY ORDERABLES [facility] [place] [address] * POCT Glucose (04/28/2020 3:28 AM EDT) Glucose, POC 161 65 - 199 mg/dL [facility] Comment: Supplemental ranges: <140 mg/dL before meals <180 mg/dL all other times of the day Blood specimen (specimen) 04/28/2020 3:28 AM EDT 04/28/2020 3:28 AM EDT Abiodun Chun MD POINT OF CARE TEST O RDERABLES Performing Organization Address City/[facility] Co de Phone Number [facility] [place] [address] * (ABNORMAL) POCT Glucose (04/27/2020 11:33 PM EDT) Glucose, POC 205(H) 65 - 199 mg/dL [facility] Comment: Supplemental ranges: <140 mg/dL before meals <180 mg/dL all other times of the day Blood specimen (specimen) 04/27/2020 11:33 PM EDT 04/27/2020 11:33 PM EDT Abiodun Chun MD POINT OF CARE TEST O RDERATOAN Performing Organization Address [facility] Co de Phone Number [facility] [place] [address] * (ABNORMAL) POCT Glucose (04/27/2020 8:03 PM EDT) Glucose, POC 274(H) 65 - 199 mg/dL [facility] Comment: Supplemental ranges: <140 mg/dL before meals <180 mg/dL all other times of the day Blood specimen (specimen) 04/27/2020 8:03 PM EDT 04/27/2020 8:03 PM EDT Abiodun Chun MD POINT OF CARE TEST O RDERABLES Performing Organization Address City/[facility] Co de Phone Number [facility] [place] [address] * POCT Glucose (04/27/2020 4:23 PM EDT) Glucose, POC 155 65 - 199 mg/dL [facility] Comment: Supplemental ranges: <140 mg/dL before meals <180 mg/dL all other times of the day Blood specimen (specimen) 04/27/2020 4:23 PM EDT 04/27/2020 4:23 PM EDT Abiodun Chun MD POINT OF CARE TEST O RDERABLES [facility] [place] [address] * CT Abdomen & Pelvis w Contrast [...] below. ? Electronically signed by: Logan Sanabria [facility] ([phone]), at 04/27/2020 4:29 PM Narrative 04/27/2020 4:29 [...] administration of contrast. Administered 96.0 ml of [id number] mg/ml. Oral contrast was administered. COMPARISON: 04/18/2020 [...] contact the number below. Electronically signed by: Logan Sanabria [facility]([phone]), at 04/27/2020 4:29 PM Abiodun Chun MD IMG CT ORDERABLES * POCT Glucose (04/27/2020 11:59 AM EDT) Glucose, POC 192 65 - 199 mg/dL [facility] Comment: Supplemental ranges: <140 mg/dL before meals <180 mg/dL all other times of the day Blood specimen (specimen) 04/27/2020 11:59 AM EDT 04/27/2020 11:59 AM EDT Abiodun Chun MD POINT OF CARE TEST O RDERABLES [facility] [place] [address] * XR Chest One View (04/27/2020 10:47 AM EDT) Anatomical Region Laterality Modality Chest N/A Digital Radiogra phy Impressions 04/27/2020 11:51 AM EDT Improved subpulmonic right-sided pleural effusion. Equivocal trace left effusion. I have personally reviewed the image(s) and the resident's interpretation and agree with the findings, Mayte oPllack at 04/27/2020 11:51 AM Thank you for letting us participate in the care of this patient. For questions regarding this report, please contact the number below. ? Narrative 04/27/2020 11:51 AM EDT EXAMINATION: XR [...] number below. Electronically signed by: Mayte Pollack [facility]([phone]), at 04/27/2020 11:51 AM Abiodun Chun MD IMG DX ORDERABLES * POCT Glucose (04/27/2020 7:43 AM EDT) Glucose, POC 138 65 - 199 mg/dL [facility] Comment: Supplemental ranges: <140 mg/dL before meals <180 mg/dL all other times of the day Blood specimen (specimen) 04/27/2020 7:43 AM EDT 04/27/2020 7:43 AM EDT Abiodun Chun MD POINT OF CARE TEST O RDERABLES [facility] [place] [address] * (ABNORMAL) Differential, Automated (04/27/2020 4:41 AM EDT) Neutrophil % 70.7 % [facility] Neutrophil Absolute 10.64(H) 1.70 - 6.10 x10(3)/[facility] Lymph % 14.9 % [facility] Lymphocytes Abs 2.2 0.9 - 3.2 x10(3)/[facility] Monocyte % 6.2 % [facility] Monocyte Abs 0.9 0.3 - 0.9 x10(3)/[facility] Eos % 3.3 % [facility] Eosinophils Abs 0.5(H) 0.0 - 0.4 x10(3)/[facility] Basophil % 0.5 % [facility] Baso Absolute 0.1 0.0 - 0.1 x10(3)/[facility] Immature Gran % 4.40 % [facility] Comment: Immature granulocytes(IG's)percentage and absolute count will include metamyelocytes, myelocytes, and promyelocytes. Blood smears from CBCs yielding IG's will be scanned manually for concordance. If this scan disagrees with the automated IG or if promyelocytes are noted, a manual differential will be performed. Immature Gran Absolute 0.67(H) 0.00 - 0.04 x10(3)/[facility] Blood specimen (specimen) 04/27/2020 4:41 AM EDT 04/27/2020 4:54 AM EDT Narrative Resulting Agency Comment Spec In Lab Hong Levi MD HEMATOLOGY ORDERABLE S [facility] [place] [address] * (ABNORMAL) Hemogram (04/27/2020 4:41 AM EDT) White Blood Cell 15.1(H) 4.0 - 9.5 x10(3)/[facility] Red Blood Cell 3.83(L) 4.00 - 5.21 x10(6)/mc L [facility] Hemoglobin 10.3(L) 11.7 - 15.5 gm/dL [facility] Hematocrit 32.1(L) 35.7 - 45.8 % [facility] Mean Cell Volume 83.8 82.6 - 94.4 fL [facility] Mean Cell Hemoglobin 26.9(L) 27.1 - 32.0 pg [facility] Mean Cell Hemoglobin Concentration 32.1 31.7 - 35.0 gm/dL [facility] Platelet 422(H) 145 - 357 x10(3)/mc L [facility] RDW Standard Deviation 44.9 37.0 - 46.0 fL [facility] RDW coefficient of variation 14.8(H) 11.5 - 14.1 % [facility] Mean Platelet Volume 9.6 7.6 - 12.9 fL [facility] NRBC% auto 0.1 % [facility] NRBC Absolute 0.020(H) 0.000 - 0.000 x10(3)/mc L [facility] Blood specimen (specimen) 04/27/2020 4:41 AM EDT 04/27/2020 4:54 AM EDT Narrative Resulting Agency Comment Spec In Lab Hong Levi MD HEMATOLOGY ORDERABLE S [facility] [place] [address] * Magnesium (04/27/2020 4:41 AM EDT) Magnesium 0.76 0.69 - 1.07 mmol/L [facility] Blood specimen (specimen) 04/27/2020 4:41 AM EDT 04/27/2020 4:54 AM EDT Narrative Resulting Agency Comment Spec In Lab Dale Dash MD CHEMISTRY ORDERABLES [facility] [place] [address] * (ABNORMAL) Comprehensive metabolic panel (non-fasting) (04/27/2020 4:41 AM EDT) Glucose 167 65 - 199 mg/dL [facility] Comment:Diabetes: >=200 mg/d L plus symptoms Blood Urea Nitrogen 12 8 - 18 mg/dL [facility] Creatinine 0.63(L) 0.70 - 1.20 mg/dL [facility] Sodium 138 135 - 145 mmol/L [facility] Potassium 3.5 3.5 - 5.0 mmol/L [facility] Comment: Please note: ??Patients with WBC >100,000 may have falsely elevated Potassium levels. ??For accurate Potassium quantification in these patients send serum separator tube (gold top) for subsequent determinations. ??Contact the Clinical Chemistry Laboratory if there are any questions. Chloride 103 98 - 107 mmol/L [facility] Carbon Dioxide 23 22 - 31 mmol/L [facility] Anion Gap 12 5 - 15 mmol/L [facility] Calcium 8.7 8.5 - 10.5 mg/dL [facility] Protein, Total 6.2 6.1 - 8.0 gm/dL [facility] Albumin 2.9(L) 3.2 - 5.2 gm/dL [facility] Aspartate Aminotransferase 12 0 - 30 unit/L [facility] Alanine Aminotransferase 13 0 - 30 unit/L [facility] Alkaline Phosphatase 230(H) 35 - 105 unit/L [facility] Bilirubin, Total 0.5 0.2 - 1.3 mg/dL [facility] Est Glomerular Filtration Rate 85 >=60 mL/min/1. 73 m?? [facility] Comment: The eGFR was calculated using the CKD-EPI equation. As with all creatinine based estimates of kidney function, eGFR values calculated with the CKD-EPI equation are not accurate in patients with acute kidney failure, extremes of body mass or the acutely ill. [email or web address]/[facility] eGFR 99 >=60 mL/min/1. 73 m?? [facility] Comment: The eGFR was calculated using the CKD-EPI equation. As with all creatinine based estimates of kidney function, eGFR values calculated with the CKD-EPI equation are not accurate in patients with acute kidney failure, extremes of body mass or the acutely ill. [email or web address] Blood specimen (specimen) 04/27/2020 4:41 AM EDT 04/27/2020 4:54 AM EDT Narrative Resulting Agency Comment Spec In Lab Dale Dash MD CHEMISTRY ORDERABLES Performing Organization Address [facility] de Phone Number [facility] [place] [place] [address] * POCT Glucose (04/27/2020 4:12 AM EDT) Glucose, POC 170 65 - 199 mg/dL [facility] Comment: Supplemental ranges: <140 mg/dL before meals <180 mg/dL all other times of the day Blood specimen (specimen) 04/27/2020 4:12 AM EDT 04/27/2020 4:12 AM EDT Abiodun Chun MD POINT OF CARE TEST O RDERABLES Performing Organization Address [facility]/ZIP Co de Phone Number [facility] [place] [place] [address] * POCT Glucose (04/27/2020 12:14 AM EDT) Glucose, POC 187 65 - 199 mg/dL [facility] Comment: Supplemental ranges: <140 mg/dL before meals <180 mg/dL all other times of the day Blood specimen (specimen) 04/27/2020 12:14 AM EDT 04/27/2020 12:14 AM EDT Abiodun Chun MD POINT OF CARE TEST O RDERATOAN Performing Organization Address City/[facility]/ZIP Co de Phone Number [facility] [place] [address] * POCT Glucose (04/26/2020 8:19 PM EDT) Glucose, POC 186 65 - 199 mg/dL [facility] Comment: Supplemental ranges: <140 mg/dL before meals <180 mg/dL all other times of the day Blood specimen (specimen) 04/26/2020 8:19 PM EDT 04/26/2020 8:19 PM EDT Abiodun Chun MD POINT OF CARE TEST O ISAIAH Performing Organization Address [facility] Co de Phone Number [facility] [place] [address] * POCT Glucose (04/26/2020 4:52 PM EDT) Glucose, POC 162 65 - 199 mg/dL [facility] Comment: Supplemental ranges: <140 mg/dL before meals <180 mg/dL all other times of the day Blood specimen (specimen) 04/26/2020 4:52 PM EDT 04/26/2020 4:52 PM EDT Abiodun Chun MD POINT OF CARE TEST O POOLERATOAN Performing Organization Address City/[facility]/ZIP Co de Phone Number [facility] [place] [address] * (ABNORMAL) POCT Glucose (04/26/2020 11:50 AM EDT) Glucose, POC 215(H) 65 - 199 mg/dL [facility] Comment: Supplemental ranges: <140 mg/dL before meals <180 mg/dL all other times of the day Blood specimen (specimen) 04/26/2020 11:50 AM EDT 04/26/2020 11:50 AM EDT Abiodun Chun MD POINT OF CARE TEST O RDERABLES Performing Organization Address City/[facility]/ZIP Co de Phone Number [facility] [place] [address] * POCT Glucose (04/26/2020 7:43 AM EDT) Glucose, POC 175 65 - 199 mg/dL [facility] Comment: Supplemental ranges: <140 mg/dL before meals <180 mg/dL all other times of the day Blood specimen (specimen) 04/26/2020 7:43 AM EDT 04/26/2020 7:43 AM EDT Abiodun Chun MD POINT OF CARE TEST O RDERABLES Performing Organization Address [facility] Co de Phone Number [facility] [place] [address] * POCT Glucose (04/26/2020 5:07 AM EDT) Glucose, POC 163 65 - 199 mg/dL [facility] Comment: Supplemental ranges: <140 mg/dL before meals <180 mg/dL all other times of the day Blood specimen (specimen) 04/26/2020 5:07 AM EDT 04/26/2020 5:07 AM EDT Abiodun Chun MD POINT OF CARE TEST O RDERABLES Performing Organization Address City/[facility]/ZIP Co de Phone Number [facility] [place] [address] * (ABNORMAL) Differential, Automated (04/26/2020 4:42 AM EDT) Neutrophil % 66.7 % [facility] Neutrophil Absolute 9.28(H) 1.70 - 6.10 x10(3)/mc L [facility] Lymph % 16.8 % [facility] Lymphocytes Abs 2.3 0.9 - 3.2 x10(3)/mc L [facility] Monocyte % 5.7 % [facility] Monocyte Abs 0.8 0.3 - 0.9 x10(3)/[facility]OR[facility] Eos % 3.7 % [facility] Eosinophils Abs 0.5(H) 0.0 - 0.4 x10(3)/[facility] Basophil % 0.8 % [facility] Baso Absolute 0.1 0.0 - 0.1 x10(3)/[facility] Immature Gran % 6.30 % [facility] Comment: Immature granulocytes(IG's)percentage and absolute count will include metamyelocytes, myelocytes, and promyelocytes. Blood smears from CBCs yielding IG's will be scanned manually for concordance. If this scan disagrees with the automated IG or if promyelocytes are noted, a manual differential will be performed. Immature Gran Absolute 0.88(H) 0.00 - 0.04 x10(3)/[facility] Blood specimen (specimen) 04/26/2020 4:42 AM EDT 04/26/2020 4:54 AM EDT Narrative Resulting Agency Comment Spec In Lab Hong Levi MD HEMATOLOGY ORDERABLE S [facility] [place] [address] * (ABNORMAL) Hemogram (04/26/2020 4:42 AM EDT) White Blood Cell 13.9(H) 4.0 - 9.5 x10(3)/[facility] Red Blood Cell 3.72(L) 4.00 - 5.21 x10(6)/[facility] Hemoglobin 10.0(L) 11.7 - 15.5 gm/dL [facility] Hematocrit 31.5(L) 35.7 - 45.8 % [facility] Mean Cell Volume 84.7 82.6 - 94.4 fL [facility] Mean Cell Hemoglobin 26.9(L) 27.1 - 32.0 pg [facility] Mean Cell Hemoglobin Concentration 31.7 31.7 - 35.0 gm/dL [facility] Platelet 398(H) 145 - 357 x10(3)/mc L [facility] RDW Standard Deviation 46.0 37.0 - 46.0 fL [facility] RDW coefficient of variation 14.9(H) 11.5 - 14.1 % [facility] Mean Platelet Volume 9.2 7.6 - 12.9 fL [facility] NRBC% auto 0.2 % [facility] NRBC Absolute 0.030(H) 0.000 - 0.000 x10(3)/mc L [facility] Blood specimen (specimen) 04/26/2020 4:42 AM EDT 04/26/2020 4:54 AM EDT Narrative Resulting Agency Comment Spec In Lab Hong Levi MD HEMATOLOGY ORDERABLE S Performing Organization Address City/[facility]/ZIP Co de Phone Number [facility] [place] [address] * Magnesium (04/26/2020 4:42 AM EDT) Pathologist [facility] Magnesium 0.86 0.69 - 1.07 mmol/L [facility] Blood specimen (specimen) 04/26/2020 4:42 AM EDT 04/26/2020 4:54 AM EDT Narrative Resulting Agency Comment Spec In Lab Dale Dash MD CHEMISTRY ORDERABLES Performing Organization Address City/[facility]/ZIP Co de Phone Number [facility] [place] [address] * (ABNORMAL) Comprehensive metabolic panel (non-fasting) (04/26/2020 4:42 AM EDT) Glucose 172 65 - 199 mg/dL [facility] Comment:Diabetes: >=200 mg/d L plus symptoms Blood Urea Nitrogen 14 8 - 18 mg/dL [facility] Creatinine 0.67(L) 0.70 - 1.20 mg/dL [facility] Sodium 142 135 - 145 mmol/L [facility] Potassium 3.3(L) 3.5 - 5.0 mmol/L [facility] Comment: Please note: ??Patients with WBC >100,000 may have falsely elevated Potassium levels. ??For accurate Potassium quantification in these patients send serum separator tube (gold top) for subsequent determinations. ??Contact the Clinical Chemistry Laboratory if there are any questions. Chloride 107 98 - 107 mmol/L [facility] Carbon Dioxide 22 22 - 31 mmol/L [facility] Anion Gap 13 5 - 15 mmol/L [facility] Calcium 8.6 8.5 - 10.5 mg/dL [facility] Protein, Total 6.3 6.1 - 8.0 gm/dL [facility] Albumin 2.8(L) 3.2 - 5.2 gm/dL [facility] Aspartate Aminotransferase 14 0 - 30 unit/L [facility] Alanine Aminotransferase 14 0 - 30 unit/L [facility] Alkaline Phosphatase 253(H) 35 - 105 unit/L [facility] Bilirubin, Total 0.4 0.2 - 1.3 mg/dL [facility] Est Glomerular Filtration Rate 84 >=60 mL/min/1. 73 m?? [facility] Comment: The eGFR was calculated using the CKD-EPI equation. As with all creatinine based estimates of kidney function, eGFR values calculated with the CKD-EPI equation are not accurate in patients with acute kidney failure, extremes of body mass or the acutely ill. [email or web address]/[facility] eGFR 97 >=60 mL/min/1. 73 m?? [facility] Comment: The eGFR was calculated using the CKD-EPI equation. As with all creatinine based estimates of kidney function, eGFR values calculated with the CKD-EPI equation are not accurate in patients with acute kidney failure, extremes of body mass or the acutely ill. [email or web address] [employer]/[facility] Blood specimen (specimen) 04/26/2020 4:42 AM EDT 04/26/2020 4:54 AM EDT Narrative Resulting Agency Comment Spec In Lab Dale Dash MD CHEMISTRY ORDERABLES Performing Organization Address [facility] Co de Phone Number [facility] [place] [address] * (ABNORMAL) POCT Glucose (04/25/2020 10:39 PM EDT) Glucose, POC 215(H) 65 - 199 mg/dL [facility] Comment: Supplemental ranges: <140 mg/dL before meals <180 mg/dL all other times of the day Blood specimen (specimen) 04/25/2020 10:39 PM EDT 04/25/2020 10:39 PM EDT Abiodun Chun MD POINT OF CARE TEST O RDERABLES Performing Organization Address [facility] Co de Phone Number [facility] [place] [address] * POCT Glucose (04/25/2020 8:54 PM EDT) Glucose, POC 175 65 - 199 mg/dL [facility] Comment: Supplemental ranges: <140 mg/dL before meals <180 mg/dL all other times of the day Blood specimen (specimen) 04/25/2020 8:54 PM EDT 04/25/2020 8:54 PM EDT Abiodun Chun MD POINT OF CARE TEST O RDERABLES Performing Organization Address [facility] Co de Phone Number [facility] [place] [address] * POCT Glucose (04/25/2020 7:43 PM EDT) Glucose, POC 198 65 - 199 mg/dL [facility] Comment: Supplemental ranges: <140 mg/dL before meals <180 mg/dL all other times of the day Blood specimen (specimen) 04/25/2020 7:43 PM EDT 04/25/2020 7:43 PM EDT Abiodun Chun MD POINT OF CARE TEST O RDERATOAN [facility] [place] [address] * POCT Glucose (04/25/2020 5:35 PM EDT) Glucose, POC 188 65 - 199 mg/dL [facility] Comment: Supplemental ranges: <140 mg/dL before meals <180 mg/dL all other times of the day Blood specimen (specimen) 04/25/2020 5:35 PM EDT 04/25/2020 5:35 PM EDT Abiodun Chun MD POINT OF CARE TEST O ISAIAH Performing Organization Address [facility]/ZIP Co de Phone Number [facility] [place] [address] * POCT Glucose (04/25/2020 12:21 PM EDT) Glucose, POC 199 65 - 199 mg/dL [facility] Comment: Supplemental ranges: <140 mg/dL before meals <180 mg/dL all other times of the day Blood specimen (specimen) 04/25/2020 12:21 PM EDT 04/25/2020 12:21 PM EDT Abiodun Chun MD POINT OF CARE TEST O RDERATOAN [facility] [place] [address] * POCT Glucose (04/25/2020 7:37 AM EDT) Glucose, POC 147 65 - 199 mg/dL [facility] Comment: Supplemental ranges: <140 mg/dL before meals <180 mg/dL all other times of the day Blood specimen (specimen) 04/25/2020 7:37 AM EDT 04/25/2020 7:37 AM EDT Abiodun Chun MD POINT OF CARE TEST O RDERABLES [facility] [place] [address] * (ABNORMAL) Differential, Automated (04/25/2020 5:05 AM EDT) Neutrophil % 63.5 % [facility] Neutrophil Absolute 8.95(H) 1.70 - 6.10 x10(3)/[facility] LABORAT[facility] Lymph % 18.9 % [facility] Lymphocytes Abs 2.7 0.9 - 3.2 x10(3)/[facility] Monocyte % 6.8 % [facility] Monocyte Abs 1.0(H) 0.3 - 0.9 x10(3)/[facility] Eos % 3.3 % [facility] Eosinophils Abs 0.5(H) 0.0 - 0.4 x10(3)/[facility] Basophil % 0.9 % [facility] Baso Absolute 0.1 0.0 - 0.1 x10(3)/[facility] Immature Gran % 6.60 % [facility] Comment: Immature granulocytes(IG's)percentage and absolute count will include metamyelocytes, myelocytes, and promyelocytes. Blood smears from CBCs yielding IG's will be scanned manually for concordance. If this scan disagrees with the automated IG or if promyelocytes are noted, a manual differential will be performed. Immature Gran Absolute 0.93(H) 0.00 - 0.04 x10(3)/ L [facility] Blood specimen (specimen) 04/25/2020 5:05 AM EDT 04/25/2020 5:20 AM EDT Narrative Resulting Agency Comment Spec In Lab Hong Levi MD HEMATOLOGY ORDERABLE S [facility] [place] [address] * (ABNORMAL) Hemogram (04/25/2020 5:05 AM EDT) White Blood Cell 14.1(H) 4.0 - 9.5 x10(3)/mc L [facility] Red Blood Cell 3.67(L) 4.00 - 5.21 x10(6)/mc L [facility] Hemoglobin 10.0(L) 11.7 - 15.5 gm/dL [facility] Hematocrit 30.9(L) 35.7 - 45.8 % [facility] Mean Cell Volume 84.2 82.6 - 94.4 fL [facility] Mean Cell Hemoglobin 27.2 27.1 - 32.0 pg [facility] Mean Cell Hemoglobin Concentration 32.4 31.7 - 35.0 gm/dL [facility] Platelet 396(H) 145 - 357 x10(3)/mc L [facility] RDW Standard Deviation 45.8 37.0 - 46.0 fL [facility] RDW coefficient of variation 15.0(H) 11.5 - 14.1 % [facility] Mean Platelet Volume 9.5 7.6 - 12.9 fL [facility] NRBC% auto 0.1 % [facility] NRBC Absolute 0.020(H) 0.000 - 0.000 x10(3)/mc L [facility] Blood specimen (specimen) 04/25/2020 5:05 AM EDT 04/25/2020 5:20 AM EDT Narrative Resulting Agency Comment Spec In Lab Hong Levi MD HEMATOLOGY ORDERABLE S [facility] [place] [address] * Magnesium (04/25/2020 5:05 AM EDT) Magnesium 0.79 0.69 - 1.07 mmol/L [facility] Blood specimen (specimen) 04/25/2020 5:05 AM EDT 04/25/2020 5:19 AM EDT Narrative Resulting Agency Comment Spec In Lab Dale Dash MD CHEMISTRY ORDERABLES [facility] [place] [address] * (ABNORMAL) Comprehensive metabolic panel (non-fasting) (04/25/2020 5:05 AM EDT) Glucose 138 65 - 199 mg/dL [facility] Comment:Diabetes: >=200 mg/d L plus symptoms Blood Urea Nitrogen 16 8 - 18 mg/dL [facility] Creatinine 0.69(L) 0.70 - 1.20 mg/dL [facility] Sodium 142 135 - 145 mmol/L [facility] Potassium 3.1(L) 3.5 - 5.0 mmol/L [facility] Comment: Please note: ??Patients with WBC >100,000 may have falsely elevated Potassium levels. ??For accurate Potassium quantification in these patients send serum separator tube (gold top) for subsequent determinations. ??Contact the Clinical Chemistry Laboratory if there are any questions. Chloride 108(H) 98 - 107 mmol/L [facility] Carbon Dioxide 22 22 - 31 mmol/L [facility] Anion Gap 12 5 - 15 mmol/L [facility] Calcium 8.7 8.5 - 10.5 mg/dL [facility] Protein, Total 6.1 6.1 - 8.0 gm/dL [facility] Albumin 2.6(L) 3.2 - 5.2 gm/dL [facility] Aspartate Aminotransferase 15 0 - 30 unit/L [facility] Alanine Aminotransferase 15 0 - 30 unit/L [facility] Alkaline Phosphatase 239(H) 35 - 105 unit/L [facility] Bilirubin, Total 0.4 0.2 - 1.3 mg/dL [facility] Est Glomerular Filtration Rate 83 >=60 mL/min/1. 73 m?? [facility] Comment: The eGFR was calculated using the CKD-EPI equation. As with all creatinine based estimates of kidney function, eGFR values calculated with the CKD-EPI equation are not accurate in patients with acute kidney failure, extremes of body mass or the acutely ill. [email or web address]/[facility]ISnkf eGFR 96 >=60 mL/min/1. 73 m?? [facility] Comment: The eGFR was calculated using the CKD-EPI equation. As with all creatinine based estimates of kidney function, eGFR values calculated with the CKD-EPI equation are not accurate in patients with acute kidney failure, extremes of body mass or the acutely ill. [email or web address]/[facility]nkf Blood specimen (specimen) 04/25/2020 5:05 AM EDT 04/25/2020 5:19 AM EDT Narrative Resulting Agency Comment Spec In Lab Dale Dash MD CHEMISTRY ORDERABLES Performing Organization Address [facility]/ZIP Co de Phone Number [facility] [place] [address] * POCT Glucose (04/25/2020 4:06 AM EDT) Glucose, POC 135 65 - 199 mg/dL [facility] Comment: Supplemental ranges: <140 mg/dL before meals <180 mg/dL all other times of the day Blood specimen (specimen) 04/25/2020 4:06 AM EDT 04/25/2020 4:06 AM EDT Abiodun Chun MD POINT OF CARE TEST O RDERABLES Performing Organization Address City/[facility]/ZIP Co de Phone Number [facility] [place] [address] * (ABNORMAL) POCT Glucose (04/24/2020 11:19 PM EDT) Glucose, POC 203(H) 65 - 199 mg/dL [facility] Comment: Supplemental ranges: <140 mg/dL before meals <180 mg/dL all other times of the day Blood specimen (specimen) 04/24/2020 11:19 PM EDT 04/24/2020 11:19 PM EDT Abiodun Chun MD POINT OF CARE TEST O RDERABLES [facility] [place] [address] * (ABNORMAL) POCT Glucose (04/24/2020 8:16 PM EDT) Glucose, POC 241(H) 65 - 199 mg/dL [facility] Comment: Supplemental ranges: <140 mg/dL before meals <180 mg/dL all other times of the day Blood specimen (specimen) 04/24/2020 8:16 PM EDT 04/24/2020 8:16 PM EDT Abiodun Chun MD POINT OF CARE TEST O RDERABLES Performing Organization Address [facility]/ZIP Co de Phone Number [facility] [place] [address] * (ABNORMAL) POCT Glucose (04/24/2020 5:08 PM EDT) Glucose, POC 230(H) 65 - 199 mg/dL [facility] Comment: Supplemental ranges: <140 mg/dL before meals <180 mg/dL all other times of the day Blood specimen (specimen) 04/24/2020 5:08 PM EDT 04/24/2020 5:08 PM EDT Abiodun Chun MD POINT OF CARE TEST O RDERABLES [facility] [place] [address] * (ABNORMAL) POCT Glucose (04/24/2020 11:48 AM EDT) Glucose, POC 223(H) 65 - 199 mg/dL [facility] Comment: Supplemental ranges: <140 mg/dL before meals <180 mg/dL all other times of the day Blood specimen (specimen) 04/24/2020 11:48 AM EDT 04/24/2020 11:48 AM EDT Abiodun Chun MD POINT OF CARE TEST O RDERABLES Performing Organization Address [facility] Co de Phone Number [facility] [place] [address] * POCT Glucose (04/24/2020 7:33 AM EDT) Glucose, POC 179 65 - 199 mg/dL [facility] Comment: Supplemental ranges: <140 mg/dL before meals <180 mg/dL all other times of the day Blood specimen (specimen) 04/24/2020 7:33 AM EDT 04/24/2020 7:33 AM EDT Abiodun Chun MD POINT OF CARE TEST O RDERABLES Performing Organization Address [facility] Co de Phone Number [facility] [place] [address] * Scan, Peripheral Blood (04/24/2020 4:58 AM EDT) Plat estimate Increased [facility] RBC Morphology Abnormal [facility] Microcyte 1-5 /HPF [facility] Hypochromia Slight [facility] Platelet Clumps Present [facility] Blood specimen (specimen) 04/24/2020 4:58 AM EDT 04/24/2020 5:16 AM EDT Narrative Resulting Agency Comment Spec In Lab Hong Levi MD HEMATOLOGY ORDERABLE S Performing Organization Address City/[facility]/ZIP Co de Phone Number [facility] [place] [address] * (ABNORMAL) Differential, Automated (04/24/2020 4:58 AM EDT) Pathologist [facility] Neutrophil % 64.5 % [facility] Neutrophil Absolute 7.89(H) 1.70 - 6.10 x10(3)/ L [facility] Lymph % 18.2 % [facility] Lymphocytes Abs 2.2 0.9 - 3.2 x10(3)/ L [facility] Monocyte % 8.3 % [facility] Monocyte Abs 1.0(H) 0.3 - 0.9 x10(3)/[facility] Eos % 2.9 % [facility] Eosinophils Abs 0.4 0.0 - 0.4 x10(3)/[facility] Basophil % 0.9 % [facility] Baso Absolute 0.1 0.0 - 0.1 x10(3)/[facility] Immature Gran % 5.20 % [facility] Comment: Immature granulocytes(IG's)percentage and absolute count will include metamyelocytes, myelocytes, and promyelocytes. Blood smears from CBCs yielding IG's will be scanned manually for concordance. If this scan disagrees with the automated IG or if promyelocytes are noted, a manual differential will be performed. Immature Gran Absolute 0.64(H) 0.00 - 0.04 x10(3)/ L [facility] Blood specimen (specimen) 04/24/2020 4:58 AM EDT 04/24/2020 5:16 AM EDT Narrative Resulting Agency Comment Spec In Lab Hong Levi MD HEMATOLOGY ORDERABLE S [facility] [place] [address] * (ABNORMAL) Hemogram (04/24/2020 4:58 AM EDT) White Blood Cell 12.2(H) 4.0 - 9.5 x10(3)/mc L [facility] Red Blood Cell 3.71(L) 4.00 - 5.21 x10(6)/mc L [facility] Hemoglobin 10.1(L) 11.7 - 15.5 gm/dL [facility] Hematocrit 31.2(L) 35.7 - 45.8 % [facility] Mean Cell Volume 84.1 82.6 - 94.4 fL [facility] Mean Cell Hemoglobin 27.2 27.1 - 32.0 pg [facility] Mean Cell Hemoglobin Concentration 32.4 31.7 - 35.0 gm/dL [facility] Platelet 375(H) 145 - 357 x10(3)/mc L [facility] RDW Standard Deviation 46.6(H) 37.0 - 46.0 fL [facility] RDW coefficient of variation 15.2(H) 11.5 - 14.1 % [facility] Mean Platelet Volume 9.7 7.6 - 12.9 fL [facility] NRBC% auto 0.0 % [facility] NRBC Absolute 0.000 0.000 - 0.000 x10(3)/ L [facility] Blood specimen (specimen) 04/24/2020 4:58 AM EDT 04/24/2020 5:16 AM EDT Narrative Resulting Agency Comment Spec In Lab Hong Levi MD HEMATOLOGY ORDERABLE S [facility] [place] [address] * Magnesium (04/24/2020 4:58 AM EDT) Magnesium 0.87 0.69 - 1.07 mmol/L [facility] Blood specimen (specimen) 04/24/2020 4:58 AM EDT 04/24/2020 5:16 AM EDT Narrative Resulting Agency Comment Spec In Lab Dale Dash MD CHEMISTRY ORDERABLES [facility] [place] [address] * (ABNORMAL) Comprehensive metabolic panel (non-fasting) (04/24/2020 4:58 AM EDT) Glucose 188 65 - 199 mg/dL [facility] Comment:Diabetes: >=200 mg/d L plus symptoms Blood Urea Nitrogen 25(H) 8 - 18 mg/dL [facility] Creatinine 0.74 0.70 - 1.20 mg/dL [facility] Sodium 143 135 - 145 mmol/L [facility] Potassium 3.3(L) 3.5 - 5.0 mmol/L [facility] Comment: Please note: ??Patients with WBC >100,000 may have falsely elevated Potassium levels. ??For accurate Potassium quantification in these patients send serum separator tube (gold top) for subsequent determinations. ??Contact the Clinical Chemistry Laboratory if there are any questions. Chloride 108(H) 98 - 107 mmol/L [facility] Carbon Dioxide 22 22 - 31 mmol/L [facility] Anion Gap 13 5 - 15 mmol/L [facility] Calcium 8.7 8.5 - 10.5 mg/dL [facility] Protein, Total 6.4 6.1 - 8.0 gm/dL [facility] Albumin 2.8(L) 3.2 - 5.2 gm/dL [facility] Aspartate Aminotransferase 14 0 - 30 unit/L [facility] Alanine Aminotransferase 16 0 - 30 unit/L [facility] Alkaline Phosphatase 243(H) 35 - 105 unit/L [facility] Bilirubin, Total 0.4 0.2 - 1.3 mg/dL [facility] Est Glomerular Filtration Rate 77 >=60 mL/min/1. 73 m?? [facility] Comment: The eGFR was calculated using the CKD-EPI equation. As with all creatinine based estimates of kidney function, eGFR values calculated with the CKD-EPI equation are not accurate in patients with acute kidney failure, extremes of body mass or the acutely ill. [email or web address]/[facility]nkf eGFR 89 >=60 mL/min/1. 73 m?? [facility] Comment: The eGFR was calculated using the CKD-EPI equation. As with all creatinine based estimates of kidney function, eGFR values calculated with the CKD-EPI equation are not accurate in patients with acute kidney failure, extremes of body mass or the acutely ill. [email or web address] Blood specimen (specimen) 04/24/2020 4:58 AM EDT 04/24/2020 5:16 AM EDT Narrative Resulting Agency Comment Spec In Lab Dale Dash MD CHEMISTRY ORDERABLES Performing Organization Address [facility]/ZIP Co de Phone Number [facility] [place] [address] * POCT Glucose (04/24/2020 4:06 AM EDT) Glucose, POC 191 65 - 199 mg/dL [facility] Comment: Supplemental ranges: <140 mg/dL before meals <180 mg/dL all other times of the day Blood specimen (specimen) 04/24/2020 4:06 AM EDT 04/24/2020 4:06 AM EDT Abiodun Chun MD POINT OF CARE TEST O RDERABLES Performing Organization Address City/[facility]/ZIP Co de Phone Number [facility] [place] [address] * POCT Glucose (04/23/2020 11:44 PM EDT) Glucose, POC 193 65 - 199 mg/dL [facility] Comment: Supplemental ranges: <140 mg/dL before meals <180 mg/dL all other times of the day Blood specimen (specimen) 04/23/2020 11:44 PM EDT 04/23/2020 11:44 PM EDT Abiodun Chun MD POINT OF CARE TEST O RDERABLES [facility] [place] [address] * POCT Glucose (04/23/2020 8:02 PM EDT) Glucose, POC 177 65 - 199 mg/dL [facility] Comment: Supplemental ranges: <140 mg/dL before meals <180 mg/dL all other times of the day Blood specimen (specimen) 04/23/2020 8:02 PM EDT 04/23/2020 8:02 PM EDT Abiodun Chun MD POINT OF CARE TEST O POOLERATOAN Performing Organization Address [facility]/ZIP Co de Phone Number [facility] [place] [address] * (ABNORMAL) POCT Glucose (04/23/2020 4:15 PM EDT) Glucose, POC 204(H) 65 - 199 mg/dL [facility] Comment: Supplemental ranges: <140 mg/dL before meals <180 mg/dL all other times of the day Blood specimen (specimen) 04/23/2020 4:15 PM EDT 04/23/2020 4:15 PM EDT Abiodun Chun MD POINT OF CARE TEST O POOLERATOAN Performing Organization Address City/[facility]/ZIP Co de Phone Number [facility] [place] [address] * Potassium (04/23/2020 1:40 PM EDT) Potassium 3.7 3.5 - 5.0 mmol/L [facility] Comment: Please note: ??Patients with [...] Chun MD CHEMISTRY ORDERABLES Performing Organization Address [facility] Co de Phone Number [facility] [place] [address] * (ABNORMAL) POCT Glucose (04/23/2020 11:35 AM EDT) Glucose, POC 202(H) 65 - 199 mg/dL [facility] Comment: Supplemental ranges: <140 mg/dL before meals <180 mg/dL all other times of the day Blood specimen (specimen) 04/23/2020 11:35 AM EDT 04/23/2020 11:35 AM EDT Abiodun Chun MD POINT OF CARE TEST O RDERATOAN Performing Organization Address [facility] Co de Phone Number [facility] [place] [address] * POCT Glucose (04/23/2020 7:27 AM EDT) Glucose, POC 115 65 - 199 mg/dL [facility] Comment: Supplemental ranges: <140 mg/dL before meals <180 mg/dL all other times of the day Blood specimen (specimen) 04/23/2020 7:27 AM EDT 04/23/2020 7:27 AM EDT Hong Rosenthal MD POINT OF CARE TEST O ISAIAH Performing Organization Address [facility] Co de Phone Number [facility] [place] [address] * POCT Glucose (04/23/2020 4:03 AM EDT) Glucose, POC 137 65 - 199 mg/dL [facility] Comment: Supplemental ranges: <140 mg/dL before meals <180 mg/dL all other times of the day Blood specimen (specimen) 04/23/2020 4:03 AM EDT 04/23/2020 4:03 AM EDT Hong Rosenthal MD POINT OF CARE TEST O RDERABLES Performing Organization Address City/[facility]/ZIP Co de Phone Number [facility] [place] [address] * Scan, Peripheral Blood (04/23/2020 2:25 AM EDT) Pathologist [facility] Plat estimate Increased [facility] RBC Morphology Abnormal [facility] Microcyte 1-5 /HPF [facility] Hypochromia Slight [facility] Blood specimen (specimen) 04/23/2020 2:25 AM EDT 04/23/2020 2:57 AM EDT Narrative Resulting Agency Comment Spec In Lab Tiesha Morgan MD HEMATOLOGY ORDERABLE S Performing Organization Address City/[facility]/ZIP Co de Phone Number [facility] [place] [address] * (ABNORMAL) Differential, Automated (04/23/2020 2:25 AM EDT) [facility] Neutrophil % 72.2 % [facility] Neutrophil Absolute 7.20(H) 1.70 - 6.10 x10(3)/mc L [facility] Lymph % 17.0 % [facility] Lymphocytes Abs 1.7 0.9 - 3.2 x10(3)/mc L [facility] Monocyte % 7.5 % [facility] Monocyte Abs 0.8 0.3 - 0.9 x10(3)/mc L [facility] Eos % 1.9 % [facility] Eosinophils Abs 0.2 0.0 - 0.4 x10(3)/mc L [facility] Basophil % 0.5 % [facility] Baso Absolute 0.0 0.0 - 0.1 x10(3)/mc L [facility] Immature Gran % 0.90 % [facility] Comment: Immature granulocytes(IG's)percentage and absolute count will include metamyelocytes, myelocytes, and promyelocytes. Blood smears from CBCs yielding IG's will be scanned manually for concordance. If this scan disagrees with the automated IG or if promyelocytes are noted, a manual differential will be performed. Immature Gran Absolute 0.09(H) 0.00 - 0.04 x10(3)/mc L [facility] Blood specimen (specimen) 04/23/2020 2:25 AM EDT 04/23/2020 2:57 AM EDT Narrative Resulting Agency Comment Spec In Lab Tiesha Morgan MD HEMATOLOGY ORDERABLE S [facility] [place] [address] * (ABNORMAL) Hemogram (04/23/2020 2:25 AM EDT) White Blood Cell 10.0(H) 4.0 - 9.5 x10(3)/mc L [facility] Red Blood Cell 3.26(L) 4.00 - 5.21 x10(6)/mc L [facility] Hemoglobin 8.9(L) 11.7 - 15.5 gm/dL [facility] Hematocrit 27.4(L) 35.7 - 45.8 % [facility] Mean Cell Volume 84.0 82.6 - 94.4 fL [facility] Mean Cell Hemoglobin 27.3 27.1 - 32.0 pg [facility] Mean Cell Hemoglobin Concentration 32.5 31.7 - 35.0 gm/dL [facility] Platelet 360(H) 145 - 357 x10(3)/mc L [facility] RDW Standard Deviation 47.2(H) 37.0 - 46.0 fL [facility] RDW coefficient of variation 15.4(H) 11.5 - 14.1 % [facility] Mean Platelet Volume 10.1 7.6 - 12.9 fL [facility] NRBC% auto 0.0 % [facility] NRBC Absolute 0.000 0.000 - 0.000 x10(3)/mc L [facility] Blood specimen (specimen) 04/23/2020 2:25 AM EDT 04/23/2020 2:57 AM EDT Narrative Resulting Agency Comment Spec In Lab Tiesha Morgan MD HEMATOLOGY ORDERABLE S Performing Organization Address [facility]/ZIP Co de Phone Number [facility] [place] [address] * Magnesium (04/23/2020 2:25 AM EDT) Magnesium 0.96 0.69 - 1.07 mmol/L [facility] Blood specimen (specimen) 04/23/2020 2:25 AM EDT 04/23/2020 2:57 AM EDT Narrative Resulting Agency Comment Spec In Lab Dale Dash MD CHEMISTRY ORDERABLES Performing Organization Address [facility] Co de Phone Number [facility] [place] [address] * (ABNORMAL) Prothrombin Time (04/23/2020 2:25 AM EDT) Prothrombin Time 14.6(H) 9.4 - 12.5 sec [facility] International Normalization Ratio 1.3 [facility] Comment: An INR <2.0 indicates [...] Lab Magdalene Lopez MD HEMATOLOGY ORDERABLE S [facility] [place] [address] * (ABNORMAL) Comprehensive metabolic panel (non-fasting) (04/23/2020 2:25 AM EDT) Glucose 134 65 - 199 mg/dL [facility] Comment:Diabetes: >=200 mg/d L plus symptoms Blood Urea Nitrogen 32(H) 8 - 18 mg/dL [facility] Creatinine 0.96 0.70 - 1.20 mg/dL [facility] Sodium 142 135 - 145 mmol/L [facility] Potassium 3.3(L) 3.5 - 5.0 mmol/L [facility] Comment: Please note: ??Patients with WBC >100,000 may have falsely elevated Potassium levels. ??For accurate Potassium quantification in these patients send serum separator tube (gold top) for subsequent determinations. ??Contact the Clinical Chemistry Laboratory if there are any questions. Chloride 106 98 - 107 mmol/L [facility] Carbon Dioxide 24 22 - 31 mmol/L [facility] Anion Gap 12 5 - 15 mmol/L [facility] Calcium 8.4(L) 8.5 - 10.5 mg/dL [facility] Protein, Total 6.1 6.1 - 8.0 gm/dL [facility] Albumin 2.7(L) 3.2 - 5.2 gm/dL [facility] Aspartate Aminotransferase 17 0 - 30 unit/L [facility] Alanine Aminotransferase 19 0 - 30 unit/L [facility] Alkaline Phosphatase 227(H) 35 - 105 unit/L [facility] Bilirubin, Total 0.5 0.2 - 1.3 mg/dL [facility] Est Glomerular Filtration Rate 56(L) >=60 mL/min/1. 73 m?? [facility] Comment: The eGFR was calculated using the CKD-EPI equation. As with all creatinine based estimates of kidney function, eGFR values calculated with the CKD-EPI equation are not accurate in patients with acute kidney failure, extremes of body mass or the acutely ill. [email or web address] [employer]/[email or web address] eGFR 65 >=60 mL/min/1. 73 m?? [facility] Comment: The eGFR was calculated using the CKD-EPI equation. As with all creatinine based estimates of kidney function, eGFR values calculated with the CKD-EPI equation are not accurate in patients with acute kidney failure, extremes of body mass or the acutely ill. [email or web address] [employer]k/[facility]ISnkf Blood specimen (specimen) 04/23/2020 2:25 AM EDT 04/23/2020 2:57 AM EDT Narrative Resulting Agency Comment Spec In Lab Dale Dash MD CHEMISTRY ORDERABLES Performing Organization Address City/[facility]/ZIP Co de Phone Number [facility] [place] [address] * POCT Glucose (04/22/2020 11:23 PM EDT) Glucose, POC 143 65 - 199 mg/dL [facility] Comment: Supplemental ranges: <140 mg/dL before meals <180 mg/dL all other times of the day Blood specimen (specimen) 04/22/2020 11:23 PM EDT 04/22/2020 11:23 PM EDT Hong Rosenthal MD POINT OF CARE TEST O RDERABLES [facility] [place] [address] * POCT Glucose (04/22/2020 8:00 PM EDT) Glucose, POC 142 65 - 199 mg/dL [facility] Comment: Supplemental ranges: <140 mg/dL before meals <180 mg/dL all other times of the day Blood specimen (specimen) 04/22/2020 8:00 PM EDT 04/22/2020 8:00 PM EDT Hong Rosenthal MD POINT OF CARE TEST O RDERATOAN Performing Organization Address [facility] Co de Phone Number [facility] [place] [address] * (ABNORMAL) Potassium (04/22/2020 5:45 PM EDT) Potassium 3.4(L) 3.5 - 5.0 mmol/L [facility] Comment: Please note: ??Patients with WBC >100,000 may have falsely elevated Potassium levels. ??For accurate Potassium quantification in these patients send serum separator tube (gold top) for subsequent determinations. ??Contact the Clinical Chemistry Laboratory if there are any questions. Blood specimen (specimen) 04/22/2020 5:45 PM EDT 04/22/2020 5:57 PM EDT Narrative Resulting Agency Comment Spec In Lab Hong Rosenhtal MD CHEMISTRY ORDERABLES Performing Organization Address [facility] Co de Phone Number [facility] [place] [address] * POCT Glucose (04/22/2020 4:42 PM EDT) Glucose, POC 156 65 - 199 mg/dL [facility] Comment: Supplemental ranges: <140 mg/dL before meals <180 mg/dL all other times of the day Blood specimen (specimen) 04/22/2020 4:42 PM EDT 04/22/2020 4:42 PM EDT Hong Rosenthal MD POINT OF CARE TEST O RDERATOAN Performing Organization Address [facility] Co de Phone Number [facility] [place] [address] * IR Cholecystostomy Tube Placement (04/22/2020 4:19 [...] EDT) Anaerobic Culture No anaerobic organisms isolated [facility] Bile specimen (specimen) 04/22/2020 3:50 PM EDT 04/22/2020 4:36 PM EDT Comment:CHOLECYSTITIS IN THE SETTING OF RECENT ACS S/P STENT PLACEMENT Narrative Resulting Agency Comment Spec In Lab Hong Rosenthal MD MICROBIOLOGY - [facility] AL ORDERABLES [facility] [place] [address] * (ABNORMAL) Body Fluid Culture, Aerobic (04/22/2020 3:50 PM EDT) Body Fluid Culture Many Raoultella ornithinolytica (Klebsiella ornithinolytica)(A ) [facility] Gram Stain Few Neutrophils seen Rare Gram Negative Rods seen (A) [facility] Organism Raoultella ornithinolytica (Klebsiella ornithinolytica)(A ) [facility] Organism Gram Negative Rods(A) [facility] Bile specimen (specimen) 04/22/2020 3:50 [...] METHOD Sensitive Hong Rosenthal MD MICROBIOLOGY - [facility] AL ORDERABLES [facility] [place] [address] * (ABNORMAL) Differential, Automated (04/22/2020 2:05 PM EDT) Neutrophil % 77.2 % [facility] Neutrophil Absolute 9.74(H) 1.70 - 6.10 x10(3)/mc L [facility] Lymph % 11.3 % [facility] Lymphocytes Abs 1.4 0.9 - 3.2 x10(3)/mc L [facility] Monocyte % 8.2 % [facility] Monocyte Abs 1.0(H) 0.3 - 0.9 x10(3)/mc L [facility] Eos % 1.9 % [facility] Eosinophils Abs 0.2 0.0 - 0.4 x10(3)/mc L [facility] Basophil % 0.6 % [facility] Baso Absolute 0.1 0.0 - 0.1 x10(3)/mc L [facility] Immature Gran % 0.80 % [facility] Comment: Immature granulocytes(IG's)percentage and absolute count will include metamyelocytes, myelocytes, and promyelocytes. Blood smears from CBCs yielding IG's will be scanned manually for concordance. If this scan disagrees with the automated IG or if promyelocytes are noted, a manual differential will be performed. Immature Gran Absolute 0.10(H) 0.00 - 0.04 x10(3)/ L [facility] Blood specimen (specimen) 04/22/2020 2:05 PM EDT 04/22/2020 2:17 PM EDT Narrative Resulting Agency Comment Spec In Lab Hong Levi MD HEMATOLOGY ORDERABLE S [facility] [place] [address] * (ABNORMAL) Hemogram (04/22/2020 2:05 PM EDT) White Blood Cell 12.6(H) 4.0 - 9.5 x10(3)/[facility] Red Blood Cell 3.51(L) 4.00 - 5.21 x10(6)/[facility] Hemoglobin 9.5(L) 11.7 - 15.5 gm/dL [facility] Hematocrit 29.3(L) 35.7 - 45.8 % [facility] Mean Cell Volume 83.5 82.6 - 94.4 fL [facility] Mean Cell Hemoglobin 27.1 27.1 - 32.0 pg [facility] Mean Cell Hemoglobin Concentration 32.4 31.7 - 35.0 gm/dL [facility] Platelet 340 145 - 357 x10(3)/[facility] RDW Standard Deviation 47.2(H) 37.0 - 46.0 [facility] RDW coefficient of variation 15.4(H) 11.5 - 14.1 % [facility] Mean Platelet Volume 10.4 7.6 - 12.9 fL [facility] NRBC% auto 0.0 % [facility] NRBC Absolute 0.000 0.000 - 0.000 x10(3)/[facility] Blood specimen (specimen) 04/22/2020 2:05 PM EDT 04/22/2020 2:17 PM EDT Narrative Resulting Agency Comment Spec In Lab Hong Levi MD HEMATOLOGY ORDERABLE S [facility] [place] [address] * POCT Glucose (04/22/2020 11:29 AM EDT) Glucose, POC 171 65 - 199 mg/dL [facility] Comment: Supplemental ranges: <140 mg/dL before meals <180 mg/dL all other times of the day Blood specimen (specimen) 04/22/2020 11:29 AM EDT 04/22/2020 11:29 AM EDT Hong Rosenthal MD POINT OF CARE TEST O RDERABLES Performing Organization Address [facility] Co de Phone Number [facility] [place] [address] * (ABNORMAL) BLOOD GAS 2 ARTERIAL (04/22/2020 9:20 AM EDT) pH, Arterial 7.41 7.35 - 7.45 [facility] PCO2, Arterial 37 35 - 45 mmHg [facility] PO2, Arterial 103 85 - 104 mmHg [facility] Bicarbonate, Arterial 23.4 20.0 - 26.0 mmol/L [facility] Base Excess, Arterial -1.2 -3.0 - 3.0 mmol/L [facility] Hgb Blood Gas 9.3(L) 11.7 - 15.5 gm/dL [facility] Oxyhemoglobin, Arterial 96.3 94.0 - 97.0 % [facility] Carboxyhemoglob in, Arterial 0.3 % [facility] Comment: Nonsmokers: 0.5-1.5% COHB Smokers: Variable, but usually less than 10% Toxic: 20-30% COHB Lethal: Greater than 60% COHB Methemoglobin, Arterial 0.6 <=1.5 % [facility] Na Whole Blood 137 135 - 145 mmol/L [facility] K Whole Blood 3.0(Critic al) 3.5 - 5.0 mmol/L [facility] Comment: Noted by optical instrument repairer. Please note: Patients with WBC >100,000 may have falsely elevated Potassium levels. Contact the Clinical Chemistry Laboratory if there are any questions. ICa Whole Blood 1.11(L) 1.15 - 1.33 mmol/L [facility] Comment: Note: ??Total bilirubin higher than 20 mg/dL may lead to falsely low ionized calcium. CL Whole Blood 109(H) 98 - 107 mmol/L [facility] Gluc Whole Bld 147 65 - 199 mg/dL [facility] Comment:Diabetes: >=200 mg/d L plus symptoms. Lactate WB 1.1 0.5 - 2.2 mmol/L [facility] Flow Art 6.0 LPM [facility] Blood specimen (specimen) 04/22/2020 9:20 AM EDT 04/22/2020 9:20 AM EDT Hong Rosenthal MD POINT OF CARE TEST O ISAIAH Performing Organization Address [facility] Co de Phone Number [facility] [place] [address] * POCT Glucose (04/22/2020 7:35 AM EDT) Glucose, POC 153 65 - 199 mg/dL [facility] Comment: Supplemental ranges: <140 mg/dL before meals <180 mg/dL all other times of the day Blood specimen (specimen) 04/22/2020 7:35 AM EDT 04/22/2020 7:35 AM EDT Hong Rosenthal MD POINT OF CARE TEST O ISAIAH Performing Organization Address [facility] Co de Phone Number [facility] [place] [address] * XR Chest One View (04/22/2020 6:15 [...] below. ? Electronically signed by: Mayte Pollack [facility] ([phone]), at 04/22/2020 8:08 AM Narrative 04/22/2020 8:08 [...] number below. Electronically signed by: Mayte Pollack [facility]([phone]), at 04/22/2020 8:08 AM Hong Rosenthal MD IMG DX ORDERABLES * (ABNORMAL) Differential, Automated (04/22/2020 3:50 AM EDT) Neutrophil % 78.4 % [facility] Neutrophil Absolute 10.58(H) 1.70 - 6.10 x10(3)/[facility] LAB[facility] Lymph % 11.9 % [facility] Lymphocytes Abs 1.6 0.9 - 3.2 x10(3)/[facility] Monocyte % 8.2 % [facility] Monocyte Abs 1.1(H) 0.3 - 0.9 x10(3)/[facility] Eos % 0.5 % [facility] Eosinophils Abs 0.1 0.0 - 0.4 x10(3)/[facility] Basophil % 0.2 % [facility] Baso Absolute 0.0 0.0 - 0.1 x10(3)/[facility] Immature Gran % 0.80 % [facility] Comment: Immature granulocytes(IG's)percentage and absolute count will include metamyelocytes, myelocytes, and promyelocytes. Blood smears from CBCs yielding IG's will be scanned manually for concordance. If this scan disagrees with the automated IG or if promyelocytes are noted, a manual differential will be performed. Immature Gran Absolute 0.11(H) 0.00 - 0.04 x10(3)/[facility] Blood specimen (specimen) 04/22/2020 3:50 AM EDT 04/22/2020 3:57 AM EDT Narrative Resulting Agency Comment Spec In Lab Tiesha Morgan MD HEMATOLOGY ORDERABLE S [facility] [place] [address] * (ABNORMAL) Hemogram (04/22/2020 3:50 AM EDT) White Blood Cell 13.5(H) 4.0 - 9.5 x10(3)/mc L [facility] Red Blood Cell 3.18(L) 4.00 - 5.21 x10(6)/mc L [facility] Hemoglobin 8.6(L) 11.7 - 15.5 gm/dL [facility] Hematocrit 26.8(L) 35.7 - 45.8 % [facility] Mean Cell Volume 84.3 82.6 - 94.4 fL [facility] Mean Cell Hemoglobin 27.0(L) 27.1 - 32.0 pg [facility] Mean Cell Hemoglobin Concentration 32.1 31.7 - 35.0 gm/dL [facility] Platelet 313 145 - 357 x10(3)/mc L [facility] RDW Standard Deviation 47.2(H) 37.0 - 46.0 fL [facility] RDW coefficient of variation 15.2(H) 11.5 - 14.1 % [facility] Mean Platelet Volume 10.5 7.6 - 12.9 fL [facility] NRBC% auto 0.0 % [facility] NRBC Absolute 0.000 0.000 - 0.000 x10(3)/mc L [facility] Blood specimen (specimen) 04/22/2020 3:50 AM EDT 04/22/2020 3:57 AM EDT Narrative Resulting Agency Comment Spec In Lab Tiesha Morgan MD HEMATOLOGY ORDERABLE S [facility] [place] [address] * (ABNORMAL) Magnesium (04/22/2020 3:50 AM EDT) Magnesium 1.46(H) 0.69 - 1.07 mmol/L [facility] Blood specimen (specimen) 04/22/2020 3:50 AM EDT 04/22/2020 3:57 AM EDT Narrative Resulting Agency Comment Spec In Lab Dale Dash MD CHEMISTRY ORDERABLES Performing Organization Address [facility] Co de Phone Number [facility] [place] [address] * (ABNORMAL) Prothrombin Time (04/22/2020 3:50 AM EDT) Prothrombin Time 13.9(H) 9.4 - 12.5 sec [facility] International Normalization Ratio 1.2 [facility] Comment: An INR <2.0 indicates [...] ORDERABLE S Performing Organization Address [facility] Co de Phone Number [facility] [place] [address] * TSH Brewster (04/22/2020 3:50 AM EDT) Thyroid Stimulating Hormone 1.22 0.27 - 4.20 mcIU/mL [facility] Blood specimen (specimen) 04/22/2020 3:50 AM EDT 04/22/2020 3:57 AM EDT Narrative Resulting Agency Comment Spec In Lab Hong Rosenthal MD CHEMISTRY ORDERABLES [facility] [place] [address] * Lipid Panel (Reflex Direct LDL) (04/22/2020 3:50 AM EDT) Cholesterol, Total 104 mg/dL M FARIDEH [facility] Comment: Lower Risk: <200 mg/dL Average Risk: 200-239 mg/dL Higher Risk: >ld=027 mg/dL Triglyceride 237 mg/dL [facility] Comment: Average Risk/Lower Risk: <150 mg/dL Borderline High Risk: 150-199 mg/dL High Risk: 200-499 mg/dL Very High Risk: >ou=696 mg/dL HDL Cholesterol 17 mg/dL [facility] Comment: Males: ?? Higher Risk: <40 mg/dL Females: ?? HIgher Risk: <50 mg/dL LDL Cholesterol 40 mg/dL [facility] Comment: Lowest Risk: <100 mg/dL Lower Risk: 100-129 mg/dL Borderline High Risk: 130-159 mg/dL High Risk: 160-189 mg/dL Very High Risk: >rk=497 mg/dL Cholesterol/HDL Ratio 6.1 ratio [facility] Lipid Interpretation See Note [facility] Comment: Lipid management should be guided by a patient? s ASCVD risk, goals and preferences. ACC/AHA Guidelines recommend high intensity statin if clinical ASCVD or LDL greater than or equal to 190 mg/dL. http://BUKA.com/PRH-FAI-Mynlgfkqi Adults aged 40-75 with LDL 70-189 mg/dL should have their 10 year ASCVD risk estimated with the ACC/AHA ASCVD risk speech professor http://tools.acc.org/URFOY-Wmdr-Xtevlxbiy/ Statin should be discussed if risk greater [...] In Lab Hong Rosenthal MD CHEMISTRY ORDERABLES [facility] [place] [address] * (ABNORMAL) Hemoglobin A1c (04/22/2020 3:50 AM EDT) Hemoglobin A1c 8.5(H) 4.3 - 5.6 % [facility] Comment: Reference Range: 4.3 - [...] [id number] Estimated Average Glucose See note mg/dL [facility] Comment: Estimated Average Glucose not [...] into estimated average glucose values. ??Diabetes Care 2008:31(8):5274-2341. Blood specimen (specimen) 04/22/2020 3:50 AM EDT 04/22/2020 3:57 AM EDT Narrative Resulting Agency Comment Spec In Lab Hong Rosenthal MD CHEMISTRY ORDERABLES [facility] [place] [address] * (ABNORMAL) Comprehensive metabolic panel (non-fasting) (04/22/2020 3:50 AM EDT) Glucose 157 65 - 199 mg/dL [facility] Comment:Diabetes: >=200 mg/d L plus symptoms Blood Urea Nitrogen 34(H) 8 - 18 mg/dL [facility] Creatinine 1.10 0.70 - 1.20 mg/dL [facility] Sodium 139 135 - 145 mmol/L [facility] Potassium 3.2(L) 3.5 - 5.0 mmol/L [facility] Comment: Please note: ??Patients with WBC >100,000 may have falsely elevated Potassium levels. ??For accurate Potassium quantification in these patients send serum separator tube (gold top) for subsequent determinations. ??Contact the Clinical Chemistry Laboratory if there are any questions. Chloride 103 98 - 107 mmol/L [facility] Carbon Dioxide 24 22 - 31 mmol/L [facility] Anion Gap 12 5 - 15 mmol/L [facility] Calcium 8.4(L) 8.5 - 10.5 mg/dL [facility] Protein, Total 6.1 6.1 - 8.0 gm/dL [facility] Albumin 2.5(L) 3.2 - 5.2 gm/dL [facility] Aspartate Aminotransferase 19 0 - 30 unit/L [facility] Alanine Aminotransferase 20 0 - 30 unit/L [facility] Alkaline Phosphatase 245(H) 35 - 105 unit/L [facility] Bilirubin, Total 0.6 0.2 - 1.3 mg/dL [facility] Est Glomerular Filtration Rate 48(L) >=60 mL/min/1. 73 m?? [facility] Comment: The eGFR was calculated using the CKD-EPI equation. As with all creatinine based estimates of kidney function, eGFR values calculated with the CKD-EPI equation are not accurate in patients with acute kidney failure, extremes of body mass or the acutely ill. http://[employer] eGFR 55(L) >=60 mL/min/1. 73 m?? [facility] Comment: The eGFR was calculated using the CKD-EPI equation. As with all creatinine based estimates of kidney function, eGFR values calculated with the CKD-EPI equation are not accurate in patients with acute kidney failure, extremes of body mass or the acutely ill. http://A.P [employer]/[facility]nkf Blood specimen (specimen) 04/22/2020 3:50 AM EDT 04/22/2020 3:57 AM EDT Narrative Resulting Agency Comment Spec In Lab Dale Dash MD CHEMISTRY ORDERABLES Performing Organization Address City/[facility] Phone Number [facility] [place] [address] * POCT Glucose (04/21/2020 11:36 PM EDT) Glucose, POC 195 65 - 199 mg/dL [facility] Comment: Supplemental ranges: <140 mg/dL before meals <180 mg/dL all other times of the day Blood specimen (specimen) 04/21/2020 11:36 PM EDT 04/21/2020 11:36 PM EDT Hong Rosenthal MD POINT OF CARE TEST O RDERABLES [facility] [place] [address] * (ABNORMAL) Basic Metabolic Panel (non-fasting) (04/21/2020 10:00 PM EDT) Glucose 231(H) 65 - 199 mg/dL [facility] Comment:Diabetes: >=200 mg/d L plus symptoms Blood Urea Nitrogen 31(H) 8 - 18 mg/dL [facility] Creatinine 1.00 0.70 - 1.20 mg/dL [facility] Sodium 138 135 - 145 mmol/L [facility] Potassium 3.6 3.5 - 5.0 mmol/L [facility] Comment: Please note: ??Patients with WBC >100,000 may have falsely elevated Potassium levels. ??For accurate Potassium quantification in these patients send serum separator tube (gold top) for subsequent determinations. ??Contact the Clinical Chemistry Laboratory if there are any questions. Chloride 102 98 - 107 mmol/L [facility] Carbon Dioxide 24 22 - 31 mmol/L [facility] Anion Gap 12 5 - 15 mmol/L [facility] Calcium 8.5 8.5 - 10.5 mg/dL [facility] Est Glomerular Filtration Rate 54(L) >=60 mL/min/1. 73 m?? [facility] Comment: The eGFR was calculated using the CKD-EPI equation. As with all creatinine based estimates of kidney function, eGFR values calculated with the CKD-EPI equation are not accurate in patients with acute kidney failure, extremes of body mass or the acutely ill. http://A.P [employer]/[facility]nkf eGFR 62 >=60 mL/min/1. 73 m?? [facility] Comment: The eGFR was calculated using the CKD-EPI equation. As with all creatinine based estimates of kidney function, eGFR values calculated with the CKD-EPI equation are not accurate in patients with acute kidney failure, extremes of body mass or the acutely ill. http://A.P [employer]/[facility]nkf Blood specimen (specimen) 04/21/2020 10:00 PM EDT 04/21/2020 10:04 PM EDT Narrative Resulting Agency Comment Spec In Lab Hong Rosenthal MD CHEMISTRY ORDERABLES Performing Organization Address [facility] Co de Phone Number [facility] [place] [address] * (ABNORMAL) POCT Glucose (04/21/2020 7:49 PM EDT) Glucose, POC 201(H) 65 - 199 mg/dL [facility] Comment: Supplemental ranges: <140 mg/dL before meals <180 mg/dL all other times of the day Blood specimen (specimen) 04/21/2020 7:49 PM EDT 04/21/2020 7:49 PM EDT Hong Rosenthal MD POINT OF CARE TEST O RDERABLES Performing Organization Address [facility] Co de Phone Number [facility] [place] [address] * (ABNORMAL) Point of Care Blood Gas Historical (04/21/2020 4:44 PM EDT) pH, POC 7.43 7.35 - 7.45 [facility] pCO2, POC 31(L) 35 - 45 mmHg [facility] pO2, POC 58(L) 85 - 104 mmHg [facility] Base Excess, POC -4.0(L) -3.0 - 3.0 mmol/L [facility] Bicarbonate, POC 20.3 20.0 - 26.0 mmol/L [facility] Sodium, POC 139 135 - 145 mmol/L [facility] POC Potassium 3.4(L) 3.5 - 5.0 mmol/L [facility] Ionized Calcium, POC 1.16 1.15 - 1.33 mmol/L [facility] POC Hematocrit 29.0(L) 34.0 - 45.0 % [facility] POC Calc Hgb 9.9(L) 11.2 - 15.7 gm/dL [facility] Comment:The calculation of h emoglobin from hematocrit assumes a normal MCHC. POC Bgas Loc CC LAB [facility] Blood specimen (specimen) 04/21/2020 4:44 PM EDT 04/22/2020 12:00 PM EDT Abiodun Chun MD CHEMISTRY ORDERABLES Performing Organization Address [facility] Co de Phone Number [facility] [place] [address] * CARDIAC CATHETERIZATION (04/21/2020 4:08 PM EDT) Anatomical Region Laterality Modality Other Narrative 04/21/2020 6:49 PM EDT ?[facility] ? Cardiac Catheterization/Intervention Report ? Patient Name: NEENA, SHANNAN A. ? Procedure Date: 04/21/2020 ? A #: [id number] ? Primary Physician: Esau Rahman ? Case #: [id number] ? File Name: [id number] ? Catheterization Order Number: [id number] ? [facility] ? Final Report [place], [place] ? Patient Name: ? SHANNAN A. NEENA ? ID#: ?[id number] ? : ?1940 ? Procedure Date: ? April 21, 2020 ?Case #: ? [id number] ? Room: ? 2 ? Case Physician: ? Esua Rahman M.D. ?Start: ?15:54 ?Fellow: ? Sandy Camargo D.O. ?Admission: ??04/19/2020 ? Referring Physician: ??Reshma Bagi M.D. ? Procedures: ?* Coronary Angiography ?* [...] procedure was Urgent. The indication for ?the senior laboratory technician visit is ACS less than or [...] be described in ?the intervention summary section. 4000 units of heparin were ?administered. A total [...] ?4 guiding catheter and a 3.5 Fr [facility] [address] ??20 Mhz. ??Imaging ?was successful. ??Image [...] The lesion was predilated with a 3.00mm [place] CB 15 MM ? balloon with a [...] may require ?modification of this regimen. Consult [facility] Interventional Cardiology for ?questions. ?The 1 year [...] Finalized: 04/21/2020 ??18:44 ? Procedure Note Esau Rahman, - 04/21/2020 [facility] Cardiac Catheterization/Intervention Report Patient Name: SHANNAN CHAUDHARY Procedure Date: 04/21/2020 A #: [id number] Primary Physician: Esau Rahman Case #: [id number] File Name: [id number] Catheterization Order Number: [id number] [facility] FinalReport [place], [place] Patient Name: SHANNAN CHAUDHARY ID#:[id number] :1940 Procedure Date: April 21, 2020 Case #: [id number] Room: 2 Case Physician: Esau Rahman M.D. Start: 15:54 Fellow: Sandy Camargo D.O. Admission:04/19/2020 Referring Physician: Reshma Baig M.D. Procedures: * Coronary Angiography * Coronary Ultrasound * Right Heart Catheterization * Oximetry * Coronary Stent Insertion * Vascular Closure Device Deployment * Access Site Angiography * Arterial Blood Gases History SHNANAN CHAUDHARY is a 79 year old woman. She has hypertension. The patient's smoking status is Never. She has hypercholesterolemiamanaged with lipid therapy. The patient has insulin dependent diabetesmellitus. She is status post an acute non-ST elevation myocardial infarction.The patient also has a history of atrial fibrillation/atrial flutter.Prior to the initiation of this procedure, the patient was designated asASA Class IV. The [facility] clinical frailty scale is 5: Mildly Frail. Diagnostic Tests: Prior Coronary Angiography: LV ejection fraction within 6 months is 59%. Electrocardiography: EKG was assessed by ECG. EKG was Abnormal. EKG showed other abnormality. Medications Prior to Procedure: Angiotensin Converting Enzyme Inhibitor, Beta Shari andStatin. Indications for Diagnostic Cath: The priority of the diagnostic procedure was Urgent. The indicationfor the senior laboratory technician visit is ACS less than or [...] 29.0 minutes, dose area product was [id number] [id number] air kerma was 3,430 mGY. See the [...] 4 guiding catheter and a 3.[address] [facility] [address] 20 Mhz.Imaging was successful. Image quality was good. The ostial RCA showedscattered atherosclerotic plaque. Post Intervention: The stent was well expanded and apposed. Additional Findings: Stent seen not extend past ostium, andadequately covered lesion. Indication for Intervention: Coronary intervention was indicated for primary therapy for an acute myocardial infarction. The priority for the procedure was Urgent.The [facility] indication for the procedure was NSTE-ACS. LVEF [...] The lesion was predilated with a 3.00mm [place] CB 15MM balloon with a maximum inflation [...] situation mayrequire modification of this regimen. Consult [facility] Interventional Cardiologyfor questions. The 1 year bleeding [...] * POCT Glucose (04/21/2020 12:15 PM EDT) Glucose, POC 180 65 - 199 mg/dL [facility] Comment: Supplemental ranges: <140 mg/dL before meals <180 mg/dL all other times of the day Blood specimen (specimen) 04/21/2020 12:15 PM EDT 04/21/2020 12:15 PM EDT Hong Rosenthal MD POINT OF CARE TEST O ISAIAH [facility] [place] [address] * XR Chest One View (04/21/2020 4:51 [...] below. ? Electronically signed by: Dylan Kinsey [facility] ([phone]), at 04/21/2020 6:22 AM Narrative 04/21/2020 6:22 [...] EDT) Troponin-T 0.13(H) 0.00 - 0.00 ng/mL [facility] Comment: The 99th percentile for Troponin T is less than 0.01 ng/mL, any detectable cTnT concentration using this assay should be considered elevated. According to the third universal definition of myocardial infarction the following criteria with a clinical presentation consistent with acute myocardial ischemia meets the diagnosis for a myocardial infarction (NE). Detection of a rise and/or fall of cTnT, with at least one value greater than the 99th percentile (> or = 0.01) and with at least one of the following ?? Symptoms of ischemia ?? New or presumed new significant CO-pkfsopv-A wave (ST-T) changes or new left bundle [...] additional sample may be indicated. Reference: Third New Market Definition of Myocardial Infarction. Journal of the [place] [employer] 2012;60:1581-98 Blood specimen (specimen) 04/21/2020 4:45 AM EDT 04/21/2020 4:56 AM EDT Narrative Resulting Agency Comment Spec In Lab Hong Rosenthal MD CHEMISTRY ORDERABLES [facility] [place] [address] * EKG 12 Lead (04/21/2020 4:33 AM EDT) Ventricular rate 83 BPM MUSE SYSTEM Atrial Rate 83 BPM MUSE SYSTEM P-R Interval 148 ms MUSE SYSTEM QRS Duration 138 ms MUSE SYSTEM Q-T Interval 408 ms MUSE SYSTEM QTC Calculated (Bezet) 479 ms MUSE SYSTEM Calculated P [place] 57 degrees MUSE SYSTEM Calculated R [place] 49 degrees MUSE SYSTEM Calculated T [place] 19 degrees MUSE SYSTEM INTERPRETATION Normal sinus rhythm Right bundle branch block Abnormal ECG When compared with ECG of 20-APR-2020 14:08, (unconfirmed) No significant change was found I personally reviewed the tracing and edited the fellows interpretation Confirmed by fellow Ren Quinn ([id number]) on 04/21/2020 1:32:16 PM Confirmed by Lisbeth Cain ([id number]) on 04/21/2020 7:47:23 PM MUSE SYSTEM 04/21/2020 4:33 AM EDT 04/21/2020 7:47 PM EDT Hong Rosenthal MD ECG ORDERABLES Performing Organization Address City/[facility]/ZIP Co de Phone Number MUSE SYSTEM * POCT Glucose (04/21/2020 3:53 AM EDT) [facility] Glucose, POC 138 65 - 199 mg/dL [facility] Comment: Supplemental ranges: <140 mg/dL before meals <180 mg/dL all other times of the day Blood specimen (specimen) 04/21/2020 3:53 AM EDT 04/21/2020 3:53 AM EDT Hong Rosenthal MD POINT OF CARE TEST O RDERABLES Performing Organization Address City/[facility]/ZIP Co de Phone Number [facility] [place] [address] * (ABNORMAL) Differential, Automated (04/21/2020 3:30 AM EDT) [facility] Neutrophil % 86.1 % [facility] Neutrophil Absolute 14.52(H) 1.70 - 6.10 x10(3)/mc L [facility] Lymph % 6.9 % [facility] Lymphocytes Abs 1.2 0.9 - 3.2 x10(3)/mc L [facility] Monocyte % 5.2 % [facility] Monocyte Abs 0.9 0.3 - 0.9 x10(3)/mc L [facility] Eos % 0.4 % [facility] Eosinophils Abs 0.1 0.0 - 0.4 x10(3)/mc L [facility] Basophil % 0.2 % [facility] Baso Absolute 0.0 0.0 - 0.1 x10(3)/[facility] LABORATORY Immature Gran % 1.20 % [facility] Comment: Immature granulocytes(IG's)percentage and absolute count will include metamyelocytes, myelocytes, and promyelocytes. Blood smears from CBCs yielding IG's will be scanned manually for concordance. If this scan disagrees with the automated IG or if promyelocytes are noted, a manual differential will be performed. Immature Gran Absolute 0.20(H) 0.00 - 0.04 x10(3)/[facility] Blood specimen (specimen) 04/21/2020 3:30 AM EDT 04/21/2020 3:34 AM EDT Narrative Resulting Agency Comment Spec In Lab Tiesha Morgan MD HEMATOLOGY ORDERABLE S Performing Organization Address City/State/[facility] Co de Phone Number [facility] [place] [address] * (ABNORMAL) Hemogram (04/21/2020 3:30 AM EDT) White Blood Cell 16.9(H) 4.0 - 9.5 x10(3)/ L [facility] Red Blood Cell 3.68(L) 4.00 - 5.21 x10(6)/ L [facility] Hemoglobin 10.1(L) 11.7 - 15.5 gm/dL [facility] Hematocrit 31.1(L) 35.7 - 45.8 % [facility] Mean Cell Volume 84.5 82.6 - 94.4 fL [facility] Mean Cell Hemoglobin 27.4 27.1 - 32.0 pg [facility] Mean Cell Hemoglobin Concentration 32.5 31.7 - 35.0 gm/dL [facility] Platelet 275 145 - 357 x10(3)/ L [facility] RDW Standard Deviation 47.4(H) 37.0 - 46.0 fL [facility] RDW coefficient of variation 15.3(H) 11.5 - 14.1 % [facility] Mean Platelet Volume 10.4 7.6 - 12.9 fL [facility] NRBC% auto 0.0 % [facility] NRBC Absolute 0.000 0.000 - 0.000 x10(3)/mc L [facility] Blood specimen (specimen) 04/21/2020 3:30 AM EDT 04/21/2020 3:34 AM EDT Narrative Resulting Agency Comment Spec In Lab Tiesha Morgan MD HEMATOLOGY ORDERABLE S Performing Organization Address [facility]/ZIP Co de Phone Number [facility] [place] [address] * (ABNORMAL) Magnesium (04/21/2020 3:30 AM EDT) Magnesium 1.09(H) 0.69 - 1.07 mmol/L [facility] Comment:result rechecked-kk Blood specimen (specimen) 04/21/2020 3:30 AM EDT 04/21/2020 3:34 AM EDT Narrative Resulting Agency Comment Spec In Lab Dale Dash MD CHEMISTRY ORDERABLES Performing Organization Address [facility]/ZIP Co de Phone Number [facility] [place] [address] * (ABNORMAL) Prothrombin Time (04/21/2020 3:30 AM EDT) Prothrombin Time 14.4(H) 9.4 - 12.5 sec [facility] International Normalization Ratio 1.2 [facility] Comment: An INR <2.0 indicates [...] Lab Magdalene Lopez MD HEMATOLOGY ORDERABLE S [facility] [place] [address] * (ABNORMAL) Comprehensive metabolic panel (non-fasting) (04/21/2020 3:30 AM EDT) Glucose 149 65 - 199 mg/dL [facility] Comment:Diabetes: >=200 mg/d L plus symptoms Blood Urea Nitrogen 39(H) 8 - 18 mg/dL [facility] Creatinine 1.31(H) 0.70 - 1.20 mg/dL [facility] Sodium 138 135 - 145 mmol/L [facility] Potassium 3.7 3.5 - 5.0 mmol/L [facility] Comment: Please note: ??Patients with WBC >100,000 may have falsely elevated Potassium levels. ??For accurate Potassium quantification in these patients send serum separator tube (gold top) for subsequent determinations. ??Contact the Clinical Chemistry Laboratory if there are any questions. Chloride 102 98 - 107 mmol/L [facility] Carbon Dioxide 21(L) 22 - 31 mmol/L [facility] Anion Gap 15 5 - 15 mmol/L [facility] Calcium 8.6 8.5 - 10.5 mg/dL [facility] Protein, Total 6.6 6.1 - 8.0 gm/dL [facility] Albumin 3.1(L) 3.2 - 5.2 gm/dL [facility] Aspartate Aminotransferase 38(H) 0 - 30 unit/L [facility] Comment:result rechecked-kk Alanine Aminotransferase 29 0 - 30 unit/L [facility] Alkaline Phosphatase 257(H) 35 - 105 unit/L [facility] Comment:result rechecked-kk Bilirubin, Total 1.0 0.2 - 1.3 mg/dL [facility] Est Glomerular Filtration Rate 39(L) >=60 mL/min/1. 73 m?? [facility] Comment: The eGFR was calculated using the CKD-EPI equation. As with all creatinine based estimates of kidney function, eGFR values calculated with the CKD-EPI equation are not accurate in patients with acute kidney failure, extremes of body mass or the acutely ill. http://A.[employer]/[facility]nkf eGFR 45(L) >=60 mL/min/1. 73 m?? [facility] Comment: The eGFR was calculated using the CKD-EPI equation. As with all creatinine based estimates of kidney function, eGFR values calculated with the CKD-EPI equation are not accurate in patients with acute kidney failure, extremes of body mass or the acutely ill. http://[employer]/[facility]nkf Blood specimen (specimen) 04/21/2020 3:30 AM EDT 04/21/2020 3:34 AM EDT Narrative Resulting Agency Comment Spec In Lab Dale Dash MD CHEMISTRY ORDERABLES [facility] [place] [address] * (ABNORMAL) Troponin (04/20/2020 11:55 PM EDT) Troponin-T 0.12(H) 0.00 - 0.00 ng/mL [facility] Comment: The 99th percentile for Troponin T is less than 0.01 ng/mL, any detectable cTnT concentration using this assay should be considered elevated. According to the third universal definition of myocardial infarction the following criteria with a clinical presentation consistent with acute myocardial ischemia meets the diagnosis for a myocardial infarction (NE). Detection of a rise and/or fall of cTnT, with at least one value greater than the 99th percentile (> or = 0.01) and with at least one of the following ?? Symptoms of ischemia ?? New or presumed new significant NG-zaayuob-T wave (ST-T) changes or new left bundle [...] additional sample may be indicated. Reference: Third New Market Definition of Myocardial Infarction. Journal of the [place] [employer] 2012;60:1581-98 Blood specimen (specimen) 04/20/2020 11:55 PM EDT 04/21/2020 1:03 AM EDT Narrative Resulting Agency Comment Spec In Lab Hong Rosenthal MD CHEMISTRY ORDERABLES Performing Organization Address [facility] Co de Phone Number [facility] [place] [address] * POCT Glucose (04/20/2020 11:46 PM EDT) Glucose, POC 144 65 - 199 mg/dL [facility] Comment: Supplemental ranges: <140 mg/dL before meals <180 mg/dL all other times of the day Blood specimen (specimen) 04/20/2020 11:46 PM EDT 04/20/2020 11:46 PM EDT Hong Rosenthal MD POINT OF CARE TEST O RDERABLES Performing Organization Address [facility] Co de Phone Number [facility] [place] [address] * POCT Glucose (04/20/2020 7:42 PM EDT) Glucose, POC 136 65 - 199 mg/dL [facility] Comment: Supplemental ranges: <140 mg/dL before meals <180 mg/dL all other times of the day Blood specimen (specimen) 04/20/2020 7:42 PM EDT 04/20/2020 7:42 PM EDT Hong Rosenthal MD POINT OF CARE TEST O RDERABLES Performing Organization Address [facility]/ZIP Co de Phone Number [facility] [place] [address] * (ABNORMAL) Troponin (04/20/2020 5:35 PM EDT) Pathologist [facility] Troponin-T 0.17(H) 0.00 - 0.00 ng/mL [facility] Comment: The 99th percentile for Troponin T is less than 0.01 ng/mL, any detectable cTnT concentration using this assay should be considered elevated. According to the third universal definition of myocardial infarction the following criteria with a clinical presentation consistent with acute myocardial ischemia meets the diagnosis for a myocardial infarction (NE). Detection of a rise and/or fall of cTnT, with at least one value greater than the 99th percentile (> or = 0.01) and with at least one of the following ?? Symptoms of ischemia ?? New or presumed new significant RJ-dxcothc-R wave (ST-T) changes or new left bundle [...] additional sample may be indicated. Reference: Third New Market Definition of Myocardial Infarction. Journal of the [place] [employer] 2012;60:1581-98 Blood specimen (specimen) 04/20/2020 5:35 PM EDT 04/20/2020 5:54 PM EDT Narrative Resulting Agency Comment Spec In Lab Magdalene Lopez MD CHEMISTRY ORDERABLES Performing Organization Address [facility]/ZIP Co de Phone Number [facility] [place] [address] * POCT Glucose (04/20/2020 4:01 PM EDT) Glucose, POC 135 65 - 199 mg/dL [facility] Comment: Supplemental ranges: <140 mg/dL before meals <180 mg/dL all other times of the day Blood specimen (specimen) 04/20/2020 4:01 PM EDT 04/20/2020 4:01 PM EDT Magdalene Lopez MD POINT OF CARE TEST O RDERABLES Performing Organization Address [facility] Co de Phone Number [facility] [place] [address] * EKG 12 Lead (04/20/2020 2:08 PM EDT) Ventricular rate 97 BPM MUSE SYSTEM Atrial Rate 97 BPM MUSE SYSTEM P-R Interval 150 ms MUSE SYSTEM QRS Duration 126 ms MUSE SYSTEM Q-T Interval 382 ms MUSE SYSTEM QTC Calculated (Bezet) 485 ms MUSE SYSTEM Calculated P [place] 58 degrees MUSE SYSTEM Calculated R [place] 35 degrees MUSE SYSTEM Calculated T [place] 11 degrees MUSE SYSTEM INTERPRETATION Normal sinus rhythm with sinus arrhythmia Right bundle branch block Abnormal ECG When compared with ECG of 20-APR-2020 11:30, (unconfirmed) No significant change was found Confirmed by Lisbeth Cain ([id number]) on 04/21/2020 3:48:13 PM MUSE SYSTEM 04/20/2020 2:08 PM EDT 04/21/2020 3:48 PM EDT Magdalene Lopez MD ECG ORDERABLES Performing Organization Address [facility] de Phone Number MUSE SYSTEM * POCT Glucose (04/20/2020 11:32 AM EDT) Glucose, POC 140 65 - 199 mg/dL [facility] Comment: Supplemental ranges: <140 mg/dL before meals <180 mg/dL all other times of the day Blood specimen (specimen) 04/20/2020 11:32 AM EDT 04/20/2020 11:32 AM EDT Magdalene Lopez MD POINT OF CARE TEST O RDERABLES Performing Organization Address [facility] Co de Phone Number [facility] [place] [address] * EKG 12 Lead (04/20/2020 11:30 AM EDT) Ventricular rate 77 BPM MUSE SYSTEM Atrial Rate 77 BPM MUSE SYSTEM P-R Interval 160 ms MUSE SYSTEM QRS Duration 120 ms MUSE SYSTEM Q-T Interval 406 ms MUSE SYSTEM QTC Calculated (Bezet) 459 ms MUSE SYSTEM Calculated P [place] 48 degrees MUSE SYSTEM Calculated R [place] 27 degrees MUSE SYSTEM Calculated T [place] 18 degrees MUSE SYSTEM INTERPRETATION Sinus rhythm with premature atrial contractions Right bundle branch block Abnormal ECG When compared with ECG of 20-APR-2020 02:33, (unconfirmed) Sinus rhythm has replaced Atrial fibrillation Vent. rate has decreased BY ??[address] no longer depressed in Anterolateral leads Nonspecific T wave abnormality has replaced inverted T waves in Inferior leads Confirmed by Lisbeth Cain ([id number]) on 04/21/2020 3:48:08 PM MUSE SYSTEM 04/20/2020 11:3 0 AM EDT 04/21/2020 3:48 PM EDT Magdalene Lopez MD ECG ORDERABLES MUSE SYSTEM * (ABNORMAL) Troponin (04/20/2020 11:30 AM EDT) Pathologist [facility] Troponin-T 0.22(H) 0.00 - 0.00 ng/mL [facility] Comment: The 99th percentile for Troponin T is less than 0.01 ng/mL, any detectable cTnT concentration using this assay should be considered elevated. According to the third universal definition of myocardial infarction the following criteria with a clinical presentation consistent with acute myocardial ischemia meets the diagnosis for a myocardial infarction (NE). Detection of a rise and/or fall of cTnT, with at least one value greater than the 99th percentile (> or = 0.01) and with at least one of the following ?? Symptoms of ischemia ?? New or presumed new significant VK-awvaity-T wave (ST-T) changes or new left bundle [...] additional sample may be indicated. Reference: Third New Market Definition of Myocardial Infarction. Journal of the [place] [employer] 2012;60:1581-98 Blood specimen (specimen) 04/20/2020 11:30 AM EDT 04/20/2020 11:45 AM EDT Narrative Resulting Agency Comment Spec In Lab Magdalene Lopez MD CHEMISTRY ORDERABLES [facility] [place] [address] * ECHO COMPLETE (04/20/2020 10:20 AM EDT) EF 59 HEARTLAB SYSTEM Anatomical Region Laterality Modality Other 04/20/2020 Narrative 04/20/2020 12:35 PM EDT Procedure: ?Transthoracic Echocardiogram Patient: ?NEENA Francis ? (Age): 1940(79y) Med Rec#: ? [id number] ?Sex: ?F ? Site Loc: ? [facility] ?Ht / Wt: ??152(cm)/86(kg) Pt. Loc: ?ICU ? BSA: ?1.82 Study Date: ?? 04/20/2020 ?Pt. Type: Inpatient Tape: ? Referring: BETHANY IRELAND A Reading: Ari Rutledge ([id number]) Barrel Polisher Inside: Hong Ahn RDCS Interpreting Fellow: Cris Rosario ([id number]) Interpreting Fellow: Oscar Barger ([id number]) Diagnosis: *Nonrheumatic aortic (valve) stenosis (I35.0) BP: [...] Vmax ?1.48 ? m/sec ? MV deceleration [id number] ?msec ? MV A-wave Vmax ?0.78 ? [...] ? Mid-Inferior ?Normal ? Mid-Inferoseptal ?Normal ? Carrie[place]-Septal ? Normal ? [place]-Anterior ? Normal ? [place]-Lateral ?Normal ? [place]-Inferior ? Normal ? [place]-Tip ?Normal ? This report has been electronically signed by: Ari Rutledge MD ? 04/20/2020 12:35:04 Images reviewed and interpretation verified [facility] Cardiac Ultrasound Laboratory Procedure Note Ari Rutledge MD - 04/20/2020 Procedure: Transthoracic Echocardiogram Patient: NEENA Francis (Age): 1940(79y) Med Rec#: [id number] Sex: F Site Loc: [facility] Ht / Wt: 152(cm)/86(kg) Pt. Loc: ICU BSA: 1.82 Study Date: 04/20/2020 Pt. Type: Inpatient Tape: Referring: BETHANY IRELAND A Reading: Ari Rutledge ([id number]) Barrel Polisher Inside: Hong Ahn [facility] Interpreting Fellow: Cris Rosario ([id number]) Interpreting Fellow: Oscar Barger ([id number]) Diagnosis: *Nonrheumatic aortic (valve) stenosis (I35.0) BP: [...] MV E-wave Vmax 1.48 m/sec MV deceleration [id number] msec MV A-wave Vmax 0.78 m/sec MV [...] Normal Mid-Posterolateral Normal Mid-Inferior Normal Mid-Inferoseptal Normal Carriere-Septal Normal Carriere-Anterior Normal Carrie[place]-Lateral Normal Carrie[place]-Inferior Normal Carrie[place]-Tip Normal This report has been electronically signed by: Ari Rutledge MD 04/20/2020 12:35:04 Images reviewed and interpretation verified [facility]ound [facility] Magdalene Lopez MD ECHO ORDERABLES * POCT Glucose (04/20/2020 8:10 AM EDT) Glucose, POC 128 65 - 199 mg/dL [facility] Comment: Supplemental ranges: <140 mg/dL before meals <180 mg/dL all other times of the day Blood specimen (specimen) 04/20/2020 8:10 AM EDT 04/20/2020 8:10 AM EDT Magdalene Lopez MD POINT OF CARE TEST O RDERATOAN Performing Organization Address [facility]/ZIP Co de Phone Number [facility] [place] [address] * Lactate, whole blood, send to lab ([facility]) (04/20/2020 5:25 AM EDT) [facility] Lactate WB 1.6 0.5 - 2.2 mmol/L [facility] Blood specimen (specimen) Venous Draw / Unknown 04/20/2020 5:25 AM EDT 04/20/2020 6:46 AM EDT Narrative Resulting Agency Comment Spec In Lab Ginna Josue DO CHEMISTRY ORDERABLES Performing Organization Address [facility] Co de Phone Number [facility] [place] [address] * POCT Glucose (04/20/2020 5:23 AM EDT) [facility] Glucose, POC 151 65 - 199 mg/dL [facility] [facility] Comment: Supplemental ranges: <140 mg/dL before meals <180 mg/dL all other times of the day Blood specimen (specimen) 04/20/2020 5:23 AM EDT 04/20/2020 5:23 AM EDT Magdalene Lopez MD POINT OF CARE TEST O ISAIAH Performing Organization Address City/[facility]/ZIP Co de Phone Number [facility] [place] [address] * (ABNORMAL) Differential, Automated (04/20/2020 3:25 AM EDT) [facility] Neutrophil % 86.0 % [facility] Neutrophil Absolute 15.43(H) 1.70 - 6.10 x10(3)/mc L [facility] Lymph % 5.4 % [facility] Lymphocytes Abs 1.0 0.9 - 3.2 x10(3)/ L [facility] Monocyte % 5.9 % [facility] Monocyte Abs 1.0(H) 0.3 - 0.9 x10(3)/[facility] LABORATORY Eos % 0.4 % [facility] Eosinophils Abs 0.1 0.0 - 0.4 x10(3)/[facility] LAB[facility] Basophil % 0.3 % [facility] Baso Absolute 0.1 0.0 - 0.1 x10(3)/[facility] Immature Gran % 2.00 % [facility] Comment: Immature granulocytes(IG's)percentage and absolute count will include metamyelocytes, myelocytes, and promyelocytes. Blood smears from CBCs yielding IG's will be scanned manually for concordance. If this scan disagrees with the automated IG or if promyelocytes are noted, a manual differential will be performed. Immature Gran Absolute 0.36(H) 0.00 - 0.04 x10(3)/[facility] LAB[facility] Blood specimen (specimen) 04/20/2020 3:25 AM EDT 04/20/2020 3:32 AM EDT Narrative Resulting Agency Comment Spec In Lab Tiesha Morgan MD HEMATOLOGY ORDERABLE S Performing Organization Address City/State/[facility] Co de Phone Number [facility] [place] [address] * (ABNORMAL) Hemogram (04/20/2020 3:25 AM EDT) White Blood Cell 17.9(H) 4.0 - 9.5 x10(3)/[facility] Red Blood Cell 3.75(L) 4.00 - 5.21 x10(6)/[facility] Hemoglobin 10.3(L) 11.7 - 15.5 gm/dL [facility] Hematocrit 32.6(L) 35.7 - 45.8 % [facility] Mean Cell Volume 86.9 82.6 - 94.4 fL [facility] Mean Cell Hemoglobin 27.5 27.1 - 32.0 pg [facility] Mean Cell Hemoglobin Concentration 31.6(L) 31.7 - 35.0 gm/dL [facility] Platelet 217 145 - 357 x10(3)/mc L [facility] RDW Standard Deviation 48.5(H) 37.0 - 46.0 fL [facility] RDW coefficient of variation 15.0(H) 11.5 - 14.1 % [facility] Mean Platelet Volume 10.7 7.6 - 12.9 fL [facility] NRBC% auto 0.0 % [facility] NRBC Absolute 0.000 0.000 - 0.000 x10(3)/mc L [facility] Blood specimen (specimen) 04/20/2020 3:25 AM EDT 04/20/2020 3:32 AM EDT Narrative Resulting Agency Comment Spec In Lab Tiesha Morgan MD HEMATOLOGY ORDERABLE S [facility] [place] [address] * POCT Glucose (04/20/2020 3:08 AM EDT) Glucose, POC 134 65 - 199 mg/dL [facility] Comment: Supplemental ranges: <140 mg/dL before meals <180 mg/dL all other times of the day Blood specimen (specimen) 04/20/2020 3:08 AM EDT 04/20/2020 3:08 AM EDT Magdalene Lopez MD POINT OF CARE TEST O RDERABLES [facility] [place] [address] * Lipase (04/20/2020 2:43 AM EDT) Lipase 11 0 - 60 unit/L [facility] Blood specimen (specimen) Venous Draw / Unknown 04/20/2020 2:43 AM EDT 04/20/2020 3:32 AM EDT Narrative Resulting Agency Comment Spec In Lab Jos Sun MD CHEMISTRY ORDERABLES Performing Organization Address City/[facility]/ZIP Co de Phone Number [facility] [place] [address] * (ABNORMAL) Hepatic Function Panel (04/20/2020 2:43 AM EDT) Protein, Total Not Perf 6.1 - 8.0 [facility] Comment:Duplicate order, alr addis done in CMP Albumin Not Perf 3.2 - 5.2 [facility] Comment:Duplicate order, alr addis done in CMP Aspartate Aminotransferase Not Perf 0 - 30 [facility] Comment:Duplicate order, alr addis done in CMP Alanine Aminotransferase Not Perf 0 - 30 [facility] Comment:Duplicate order, alr addis done in CMP Alkaline Phosphatase Not Perf 35 - 105 [facility] Comment:Duplicate order, alr addis done in CMP Bilirubin, Total Not Perf 0.2 - 1.3 [facility] Comment:Duplicate order, alr addis done in CMP Bilirubin, Direct 0.5(H) 0.0 - 0.3 mg/dL [facility] Blood specimen (specimen) Venous Draw / Unknown 04/20/2020 2:43 AM EDT 04/20/2020 3:32 AM EDT Narrative Resulting Agency Comment Spec In Lab Jos Sun MD CHEMISTRY ORDERABLES Performing Organization Address City/[facility]/ZIP Co de Phone Number [facility] [place] [address] * Phosphorus (04/20/2020 2:43 AM EDT) Phosphorus 3.6 2.5 - 4.5 mg/dL [facility] Blood specimen (specimen) Venous Draw / Unknown 04/20/2020 2:43 AM EDT 04/20/2020 3:32 AM EDT Narrative Resulting Agency Comment Spec In Lab Tiesha Morgan MD CHEMISTRY ORDERABLES Performing Organization Address [facility]/ZIP Co de Phone Number [facility] [place] [address] * Magnesium (04/20/2020 2:43 AM EDT) Magnesium 0.71 0.69 - 1.07 mmol/L [facility] Blood specimen (specimen) Venous Draw / Unknown 04/20/2020 2:43 AM EDT 04/20/2020 3:32 AM EDT Narrative Resulting Agency Comment Spec In Lab Tiesha Morgan MD CHEMISTRY ORDERABLES Performing Organization Address [facility] Co de Phone Number [facility] [place] [address] * (ABNORMAL) Comprehensive metabolic panel (non-fasting) (04/20/2020 2:43 AM EDT) Glucose 129 65 - 199 mg/dL [facility] Comment:Diabetes: >=200 mg/d L plus symptoms Blood Urea Nitrogen 30(H) 8 - 18 mg/dL [facility] Creatinine 1.26(H) 0.70 - 1.20 mg/dL [facility] Sodium 134(L) 135 - 145 mmol/L [facility] Potassium 3.9 3.5 - 5.0 mmol/L [facility] Comment: Please note: ??Patients with WBC >100,000 may have falsely elevated Potassium levels. ??For accurate Potassium quantification in these patients send serum separator tube (gold top) for subsequent determinations. ??Contact the Clinical Chemistry Laboratory if there are any questions. Chloride 100 98 - 107 mmol/L [facility] Carbon Dioxide 20(L) 22 - 31 mmol/L [facility] Anion Gap 14 5 - 15 mmol/L [facility] Calcium 8.3(L) 8.5 - 10.5 mg/dL [facility] Protein, Total 6.1 6.1 - 8.0 gm/dL [facility] Albumin 2.8(L) 3.2 - 5.2 gm/dL [facility] Aspartate Aminotransferase 18 0 - 30 unit/L [facility] Alanine Aminotransferase 22 0 - 30 unit/L [facility] Alkaline Phosphatase 139(H) 35 - 105 unit/L [facility] Bilirubin, Total 1.5(H) 0.2 - 1.3 mg/dL [facility] Est Glomerular Filtration Rate 40(L) >=60 mL/min/1. 73 m?? [facility] Comment: The eGFR was calculated using the CKD-EPI equation. As with all creatinine based estimates of kidney function, eGFR values calculated with the CKD-EPI equation are not accurate in patients with acute kidney failure, extremes of body mass or the acutely ill. http://[employer]/[facility]nkf eGFR 47(L) >=60 mL/min/1. 73 m?? [facility] Comment: The eGFR was calculated using the CKD-EPI equation. As with all creatinine based estimates of kidney function, eGFR values calculated with the CKD-EPI equation are not accurate in patients with acute kidney failure, extremes of body mass or the acutely ill. http://[employer]/[facility]ISnkf Blood specimen (specimen) 04/20/2020 2:43 AM EDT 04/20/2020 3:12 AM EDT Narrative Resulting Agency Comment Spec In Lab Magdalene Lopez MD CHEMISTRY ORDERABLES [facility] [place] [address] * (ABNORMAL) Prothrombin Time (04/20/2020 2:43 AM EDT) Prothrombin Time 15.7(H) 9.4 - 12.5 sec [facility] International Normalization Ratio 1.4 [facility] Comment: An INR <2.0 indicates [...] Lab Magdalene Lopez MD HEMATOLOGY ORDERABLE S [facility] [place] [address] * Troponin (04/20/2020 2:43 AM EDT) Troponin-T <0.01 0.00 - 0.00 ng/mL [facility] Comment: The 99th percentile for Troponin T is less than 0.01 ng/mL, any detectable cTnT concentration using this assay should be considered elevated. According to the third universal definition of myocardial infarction the following criteria with a clinical presentation consistent with acute myocardial ischemia meets the diagnosis for a myocardial infarction (NE). Detection of a rise and/or fall of cTnT, with at least one value greater than the 99th percentile (> or = 0.01) and with at least one of the following ?? Symptoms of ischemia ?? New or presumed new significant ON-yebmvrh-F wave (ST-T) changes or new left bundle [...] additional sample may be indicated. Reference: Third New Market Definition of Myocardial Infarction. Journal of the [place] [employer] 2012;60:1581-98 Blood specimen (specimen) 04/20/2020 2:43 AM EDT 04/20/2020 3:12 AM EDT Narrative Resulting Agency Comment Spec In Lab Magdalene Lopez MD CHEMISTRY ORDERABLES Performing Organization Address [facility] Co de Phone Number [facility] [place] [address] * EKG 12 Lead (04/20/2020 2:33 AM EDT) Ventricular rate 168 BPM MUSE SYSTEM Atrial Rate 174 BPM MUSE SYSTEM QRS Duration 128 ms MUSE SYSTEM Q-T Interval 288 ms MUSE SYSTEM QTC Calculated (Bezet) 481 ms MUSE SYSTEM Calculated R [place] 82 degrees MUSE SYSTEM Calculated T [place] -18 degrees MUSE SYSTEM INTERPRETATION Atrial fibrillation [...] fellows interpretation Confirmed by fellow Ren Quinn ([id number]) on 04/20/2020 11:47:57 AM Confirmed by Lisbeth Cain ([id number]) on 04/21/2020 7:47:13 PM MUSE SYSTEM 04/20/2020 2:33 AM EDT 04/21/2020 7:47 PM EDT Magdalene Lopez MD ECG ORDERABLES Performing Organization Address [facility] de Phone Number MUSE SYSTEM * POCT Glucose (04/20/2020 12:36 AM EDT) Glucose, POC 112 65 - 199 mg/dL [facility] Comment: Supplemental ranges: <140 mg/dL before meals <180 mg/dL all other times of the day Blood specimen (specimen) 04/20/2020 12:36 AM EDT 04/20/2020 12:36 AM EDT Magdalene Lopez MD POINT OF CARE TEST O RDERABLES Performing Organization Address [facility] Co de Phone Number [facility] [place] [address] * EKG 12 Lead (04/19/2020 8:23 PM EDT) Ventricular rate 100 BPM MUSE SYSTEM Atrial Rate 100 BPM MUSE SYSTEM P-R Interval 156 ms MUSE SYSTEM QRS Duration 116 ms MUSE SYSTEM Q-T Interval 368 ms MUSE SYSTEM QTC Calculated (Bezet) 474 ms MUSE SYSTEM Calculated P [place] 59 degrees MUSE SYSTEM Calculated R [place] 26 degrees MUSE SYSTEM Calculated T [place] 2 degrees MUSE SYSTEM INTERPRETATION Normal sinus rhythm Right bundle branch block Abnormal ECG No previous ECGs available Confirmed by Lisbeth Cain ([id number]) on 04/21/2020 3:47:08 PM MUSE SYSTEM 04/19/2020 8:23 PM EDT 04/21/2020 3:47 PM EDT Magdalene Lopez MD ECG ORDERABLES Performing Organization Address City/[facility]/ZIP Co de Phone Number MUSE SYSTEM * POCT Glucose (04/19/2020 7:50 PM EDT) Glucose, POC 153 65 - 199 mg/dL [facility] Comment: Supplemental ranges: <140 mg/dL before meals <180 mg/dL all other times of the day Blood specimen (specimen) 04/19/2020 7:50 PM EDT 04/19/2020 7:50 PM EDT Magdalene Lopez MD POINT OF CARE TEST O RDERABLES [facility] [place] [address] * POCT Glucose (04/19/2020 5:58 PM EDT) Glucose, POC 151 65 - 199 mg/dL [facility] Comment: Supplemental ranges: <140 mg/dL before meals <180 mg/dL all other times of the day Blood specimen (specimen) 04/19/2020 5:58 PM EDT 04/19/2020 5:58 PM EDT Magdalene Lopez MD POINT OF CARE TEST O RDERABLES [facility] [place] [address] * Request For 2nd Read CT Abdomen [...] below. ? Electronically signed by: Harris Shepard [facility] ([phone]), at 04/19/2020 4:27 PM Narrative 04/19/2020 4:27 PM EDT EXAMINATION: ??REQUEST FOR 2ND READ CT ABDOMEN AND PELVIS CLINICAL HISTORY: ??cholecystitis, eval CBD as well; What Modality is the exam? CT Scan; Body Part (please add comments as necessary): abd/pelvis; Sending Institution [facility]; Date of exam 20200418; [...] (please add comments as necessary): abd/pelvis;Sending Institution [facility]; Date of exam [id number]; [...] number below. Electronically signed by: Harris Shepard [facility]([phone]), at 04/19/2020 4:27 PM Magdalene Lopez MD IMG OUTSIDE INTERPRE TATION ORDERABLES * (ABNORMAL) Differential, Automated (04/19/2020 4:04 PM EDT) Neutrophil % 85.2 % [facility] Neutrophil Absolute 14.50(H) 1.70 - 6.10 x10(3)/mc L [facility] Lymph % 7.8 % [facility] Lymphocytes Abs 1.3 0.9 - 3.2 x10(3)/mc L [facility] Monocyte % 5.7 % [facility] Monocyte Abs 1.0(H) 0.3 - 0.9 x10(3)/[facility]ORAT[facility] Eos % 0.2 % [facility] Eosinophils Abs 0.0 0.0 - 0.4 x10(3)/[facility] Basophil % 0.2 % [facility] Baso Absolute 0.0 0.0 - 0.1 x10(3)/[facility] Immature Gran % 0.90 % [facility] Comment: Immature granulocytes(IG's)percentage and absolute count will include metamyelocytes, myelocytes, and promyelocytes. Blood smears from CBCs yielding IG's will be scanned manually for concordance. If this scan disagrees with the automated IG or if promyelocytes are noted, a manual differential will be performed. Immature Gran Absolute 0.16(H) 0.00 - 0.04 x10(3)/mc L [facility] Blood specimen (specimen) 04/19/2020 4:04 PM EDT 04/19/2020 4:30 PM EDT Narrative Resulting Agency Comment Spec In Lab Magdalene Lopez MD HEMATOLOGY ORDERABLE S [facility] [place] [address] * (ABNORMAL) Hemogram (04/19/2020 4:04 PM EDT) Pathologist [facility] White Blood Cell 17.0(H) 4.0 - 9.5 x10(3)/[facility] Red Blood Cell 4.07 4.00 - 5.21 x10(6)/ L [facility] Hemoglobin 11.2(L) 11.7 - 15.5 gm/dL [facility] Hematocrit 34.8(L) 35.7 - 45.8 % [facility] Mean Cell Volume 85.5 82.6 - 94.4 fL [facility] Mean Cell Hemoglobin 27.5 27.1 - 32.0 pg [facility] Mean Cell Hemoglobin Concentration 32.2 31.7 - 35.0 gm/dL [facility] Platelet 220 145 - 357 x10(3)/[facility] RDW Standard Deviation 47.3(H) 37.0 - 46.0 fL [facility] RDW coefficient of variation 15.1(H) 11.5 - 14.1 % [facility] Mean Platelet Volume 11.3 7.6 - 12.9 fL [facility] NRBC% auto 0.0 % [facility] NRBC Absolute 0.000 0.000 - 0.000 x10(3)/[facility] Blood specimen (specimen) 04/19/2020 4:04 PM EDT 04/19/2020 4:30 PM EDT Narrative Resulting Agency Comment Spec In Lab Magdalene Lopez MD HEMATOLOGY ORDERABLE S [facility] [place] [address] * (ABNORMAL) Prothrombin Time (04/19/2020 4:04 PM EDT) [facility] Prothrombin Time 16.9(H) 9.4 - 12.5 sec [facility] International Normalization Ratio 1.5 [facility] Comment: An INR <2.0 indicates [...] Lab Magdalene Lopez MD HEMATOLOGY ORDERABLE S [facility] [place] [address] * (ABNORMAL) Comprehensive metabolic panel (non-fasting) (04/19/2020 4:04 PM EDT) Glucose 146 65 - 199 mg/dL [facility] Comment:Diabetes: >=200 mg/d L plus symptoms Blood Urea Nitrogen 26(H) 8 - 18 mg/dL [facility] Creatinine 1.37(H) 0.70 - 1.20 mg/dL [facility] Sodium 135 135 - 145 mmol/L [facility] Potassium 4.1 3.5 - 5.0 mmol/L [facility] Comment: Please note: ??Patients with WBC >100,000 may have falsely elevated Potassium levels. ??For accurate Potassium quantification in these patients send serum separator tube (gold top) for subsequent determinations. ??Contact the Clinical Chemistry Laboratory if there are any questions. Chloride 97(L) 98 - 107 mmol/L [facility] Carbon Dioxide 20(L) 22 - 31 mmol/L [facility] Anion Gap 18(H) 5 - 15 mmol/L [facility] Calcium 9.1 8.5 - 10.5 mg/dL [facility] Protein, Total 7.1 6.1 - 8.0 gm/dL [facility] Albumin 3.6 3.2 - 5.2 gm/dL [facility] Aspartate Aminotransferase 28 0 - 30 unit/L [facility] Alanine Aminotransferase 30 0 - 30 unit/L [facility] Alkaline Phosphatase 148(H) 35 - 105 unit/L [facility] Bilirubin, Total 2.1(H) 0.2 - 1.3 mg/dL [facility] Est Glomerular Filtration Rate 37(L) >=60 mL/min/1. 73 m?? [facility] Comment: The eGFR was calculated using the CKD-EPI equation. As with all creatinine based estimates of kidney function, eGFR values calculated with the CKD-EPI equation are not accurate in patients with acute kidney failure, extremes of body mass or the acutely ill. http://[employer]/[facility]nkf eGFR 42(L) >=60 mL/min/1. 73 m?? [facility] Comment: The eGFR was calculated using the CKD-EPI equation. As with all creatinine based estimates of kidney function, eGFR values calculated with the CKD-EPI equation are not accurate in patients with acute kidney failure, extremes of body mass or the acutely ill. http://[employer]/[facility]nkf Blood specimen (specimen) 04/19/2020 4:04 PM EDT 04/19/2020 4:30 PM EDT Narrative Resulting Agency Comment Spec In Lab Magdalene Lopez MD CHEMISTRY ORDERABLES Performing Organization Address City/[facility]/ZIP Co de Phone Number [facility] [place] [address] * ABORH Recheck Status (04/19/2020 3:57 PM EDT) ABORH Recheck Order Order Placed [facility] ABORH Type Recheck Complete [facility] Blood specimen (specimen) 04/19/2020 3:57 PM EDT 04/19/2020 4:23 PM EDT Narrative Resulting Agency Comment Spec In Lab Magdalene Lopez MD BLOOD BANK LAB ORDER JAMIE [facility] [place] [address] * Antibody screen (04/19/2020 3:57 PM EDT) Ab Screen Interp Negative [facility] Expires at [id number] on: 04/22/2020 [facility] Blood specimen (specimen) 04/19/2020 3:57 PM EDT 04/19/2020 4:23 PM EDT Narrative Resulting Agency Comment Spec In Lab Magdalene Lopez MD BLOOD BANK LAB ORDER JAMIE Performing Organization Address City/[facility]/ZIP Co de Phone Number [facility] [place] [address] * ABO/Rh Typing (04/19/2020 3:57 PM EDT) ABORH Type O Pos [facility] Blood specimen (specimen) 04/19/2020 3:57 PM EDT 04/19/2020 4:23 PM EDT Narrative Resulting Agency Comment Spec In Lab Magdalene Lopez MD BLOOD BANK LAB ORDER JAMIE Performing Organization Address [facility] Co de Phone Number [facility] [place] [address] documented in this encounter Visit Diagnoses Diagnosis [...] mellitus with other circulatory complication, unspecified whether intermediate card tender insulin use Cholecystitis Cholecystitis, unspecified Atrial fibrillation--- paroxysmal Atrial fibrillation Aortic stenosis - moderate Aortic valve disorders Cholecystitis Cholecystitis, unspecified Infection of cholecystostomy drain, initial encounter 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, unspecified whether intermediate card tender insulin use documented in this encounter Admitting [...] NIGHTLY, First dose (after last modification) on 04/25/20 at 2100, Until Discontinued, Routine Given 04/27/2020 8:55 PM EDT 10 mg Given 04/26/2020 8:21 PM EDT 10 mg Given 04/25/2020 9:13 PM EDT 10 mg amLODIPine (Norvasc) tablet 5 mg 5 mg, Oral, NIGHTLY, First dose on 04/24/20 at 2100, Until Discontinued, Routine Given 04/24/2020 [...] 40 mg, Intravenous, ONCE, 1 dose, On Sun04/22/20 at 1015 Given 04/22/2020 11:37 AM EDT 40 mg furosemide (Lasix) tablet 20 mg 20 mg, Oral, DAILY, First dose on Sun04/29/20 at 0900, Until Discontinued, Routine Given 04/29/2020 [...] PRN, Starting on 04/24/20 at 0852, Until Sun04/24/20 at 1614, High Blood Pressure, Routine Given 04/24/2020 12: 13 PM EDT 10 mg labetalol (NORMODYNE,TRANDATE) injection 10-20 mg 10-20 mg, Intravenous, EVERY 2 HOURS PRN, Starting on Sun04/20/20 at 2010, Until Sun04/21/20 at 1447, High [...] 2 g, Intravenous, ONCE, 1 dose, On Sun04/29/20 at 1545, Administer over 120 Minutes New [...] SCHEDULED, First dose (after last modification) on Noreen 04/22/20 at 0000, Until Discontinued, Hold for HR<60 or SBP<90, Routine Given 04/24/2020 5:00 AM EDT 75 mg Given 04/24/2020 12:12 AM EDT 75 mg Given 04/23/2020 5:39 PM EDT 75 mg metroNIDAZOLE (Flagyl) tablet 500 mg 500 mg, Oral, 3 TIMES DAILY, First dose on Noreen 04/29/20 at 1600, Until Discontinued, Routine, Indication for [...] Intravenous, EVERY 8 HOURS PRN, Starting on 04/19/20 at 1612, Until Noreen 04/29/20 at 1457, [...] CONTINUOUS, Starting on Sun04/20/20 at 1200, Until Sun04/22/20 at 0816, Titrate to SBP>90bpm. Start at [...] ordered pain medications are indicated. , Routine 040 (Given - Provider: Sandy Subramanian RN)1204 (Given - Provider: Fahad Muhammad RN)2049 (Given - Provider: Sandy Subramanian RN) 041 (Given - Provider: Sandy Subramanian RN)1145 (Given - Provider: Kristi Gallegos, LYLA)2048 (Given - Provider: Tete Tanner RN) 0600 (Not Given - Provider: Tete Tanner RN - Reason: Patient/family refused)1230 (Not Given - Provider: Kristi Gallegos RN - Reason: Patient/family refused) AMIOdarone (Cordarone; Pacerone) tablet 200 mg 200 mg, Oral, 2 TIMES DAILY, First dose on Sun04/22/20 at 0900, Until Discontinued, Routine 926 (Given - Provider: Fahad Muhammad RN)2049 (Given - Provider: Sandy Subramanian RN) 08 (Given - Provider: Kristi Gallegos RN)2048 (Given - Provider: Tete Tanner RN) 0804 (Given - Provider: Kristi Gallegos, LYLA) amoxicillin-clavulanate (Augmentin) 875-125 mg per tablet 1 tablet 1 tablet, Oral, 2 TIMES DAILY, First dose on Sun04/30/20 at 2100, Until Discontinued, Routine, Indication for (Active or Suspected): GI/Intra-abdominal 926 (Given - Provider: Fahad Muhammad, LYLA)2048 (Given - Provider: Sandy Subramanian RN) 08 [...] on Sun04/22/20 at 0900, Until Discontinued, Routine 09 (Given - Provider: Fahad Muhammad RN) 0811 (Given - Provider: Kristi Gallegos, LYLA) 08 (Given - Provider: Kristi Gallegos [...] on Sun05/01/20 at 1100, Until Discontinued, Routine 0927 (Given - Provider: Fahad Muhammad RN) 0810 (Given - Provider: Kristi Gallegos, LYLA) 0804 (Given - Provider: Kristi Gallegos RN) melatonin tablet 6 mg 6 mg, Oral, NIGHTLY, First dose on Sun04/30/20 at 2100, Until Discontinued, Routine 2049 (Given - Provider: Sandy Subramanian, LYLA) 2048 (Given - Provider: Tete Tanner, LYLA) metoprolol succinate XL (Toprol-XL) tablet 300 mg 300 mg, Oral, NIGHTLY, First dose on Sun04/24/20 at 2100, Until Discontinued, DO NOT CRUSH OR OPEN, Routine 2048 (Given - Provider: Sandy Subramanian, LYLA) 2048 (Given - Provider: Tete Tanner RN) pantoprazole EC (Protonix) tablet 40 mg 40 mg, Oral, 2 TIMES DAILY, First dose on Sun05/03/20 at 2100, Until Discontinued, DO NOT CRUSH OR OPEN 927 (Given - Provider: Fahad Muhammad RN)2049 (Given - Provider: Sandy Subramanian RN) 810 (Given - Provider: Kristi Gallegos RN)2048 (Given - Provider: Tete Tanner RN) 804 (Given - Provider: Kristi Gallegos [...] Muhammad RN) 1655 (Given - Provider: Kristi Gallegos RN) senna-docusate (Pericolace) 8.6-50 mg per tablet [...] Routine 0934 (Given - Provider: Fahad Muhammad, RN)2057 (Given - Provider: Sandy Subramanian RN) 08 (Given - Provider: Kristi Gallegos RN)2050 (Given - Provider: Tete Tanner, LYLA) 08 (Given - Provider: Kristi Gallegos RN) sodium chloride 0.9 % (flush) flush 5 mL 5 mL, Intravenous, 2 TIMES DAILY, First dose on Sun05/02/20 at 1145, Until Discontinued, Routine 0933 (Given - Provider: Fahad Muhammad, RN)2057 (Given - Provider: Sandy Subramanian, LYLA) 08 (Given - Provider: Kristi Gallegos RN)899 (Not Given - Provider: Kristi Gallegos [...] Routine documented in this encounter Care Teams Implementation Specialist Payroll Relationship Specialty Start Date End Date Reshma Baig MD [address] [place] [address] PCP - General Family Medicine 11/08/18 06/23/21 documented as of this encounter
--- OUTSIDE RECORDS SUMMARY | 2024-04-28 15:27 | XMS_ITS | Encounter Summary ---
Author Organization [facility] [place] [address] Care Team Providers Care Equipment Operat0R Name Role Phone Reshma Baig MD Primary Care Provider [phone] Reason for Visit * Auth/Cert Specialty Diagnoses / Procedures Referred By Malini carlson Referred To Contact Diagnoses Cholecystitis Cholecystitis Procedures EMERGENCY IPI Referral ID Status Reason Start Date Expiration Date Visits Re quested Visits Authorized [id number] 1 1 Encounter Details Date Type Department Care Team (Late st Contact Info) Description 05/03/2020 10:35 AM EDT Anesthesia Event [place] [address] Bronson Arguello MD [facility] DR ANESTHESIOLOGY [place] [address] Anesthesia Record Procedure Summary Procedure Name Responsible [...] (lateral side of arm), right (R-upper,anterior arm); wzzj-bft-jzdjzn catheter system; 05/08/20; 1242 04/20/20 0515 by Antonette yDer RN 05/08/20 1242 by Gavin Coronado RN Drain/Device Site 04/22/20; 0932; Righ t; upper; abdomen; pigtail (10 Mosoth[place] Anna Tube); Dr. Collins; Sterile prep and drape, Sterile technique; Lidocaine 1%; Other; Exchanged with 10 fr tube; 07/15/20; 17104/22/20 0932 by Bobbi Fernandez RN 07/15/20 1711 by Fang Rodgers RN Drain/Device Site 04/28/20; 0956; Righ t; upper; abdomen; collapsible closed device (10 Mosotho pigtail); Dr. Collins; 07/15/20; 171004/28/20 0956 by Bobbi Fernandez RN 07/15/20 1711 by Fang Rodgers RN (RETIRED) Peripheral IV Line - Single Lumen 05/02/20; 1228; cephalic vein (lateral side of arm), left; lkka-srh-txqbez catheter system; 20 gauge, 3/4 in length, 1 in length; Derick Labchacorta DE [place] ON VAS; distraction, intradermal injection; 05/08/20; 1242 05/02/20 1228 by Nadira Saha RN 05/08/20 1242 by Gavin Coronado, LYLA documented in this encounter Social History Tobacco [...] Note Patient: Shannan Moody Procedure Summary Date: 05/03/20 Room / Location: [facility] ENDO 3 / [facility] ENDOSCOPY Anesthesia Start: 1035 Anesthesia Stop: 1055 Procedure: EGD, UPPER GI ENDOSCOPY (N/A Trunk) Diagnosis: (egd) Surgeon: Brigitte Graf MD Responsible Provider: Bronson Arguello MD Anesthesia Type: MAC ASA Status: 3 All Anesthesia Providers: Anesthesiologist: Bronson Arguello MD Regional Facilities Manager: Yara Mcguire MD Vitals Value Taken Time [...] 04/28/2020 CT Guided Drain Peritoneal 04/28/2020 [facility] RAD CAT SCAN ??? HYSTERECTOMY, VAGINAL ??? IR CHOLECYSTOSTOMY TUBE PLACEMENT 04/22/2020 IR Cholecystostomy Tube Placement 04/22/2020 Jos Collins, DO [facility] INTERVENTIONL RAD Social History Tobacco Use ??? [...] -- (!) 90/37 100 % 8 L/min FL 05/03/20 1101 -- 56 bpm -- -- (!) 71/58 100 % 4 L/min FL 05/03/20 1105 -- 55 bpm -- -- [...] mg documented in this encounter Care Teams Equipment Operat0R Relationship Specialty Start Date End Date Reshma Baig MD [address] [place] [address] PCP - General Family Medicine 11/08/18 06/23/21 documented as of this encounter
--- OUTSIDE RECORDS SUMMARY | 2024-04-28 15:29 | XMS_ITS | Encounter Summary ---
Author Organization [facility] Address [facility] [place] [address] Care Team Providers Care Medicaid Specialist Name Role Phone Reshma Baig MD Primary Care Provider [phone] Encounter Details Date Type Department Care Team (Late st Contact Info) Description 04/22/2020 [place] [address] Michael Baron MD [facility] DR RADIOLOGY [place] [address] Cholecystitis Social History Tobacco Use Types Packs/Day [...] (Bezet) 492 ms MUSE SYSTEM Calculated P [place] 47 degrees MUSE SYSTEM Calculated R [place] -62 degrees MUSE SYSTEM Calculated T [place] 92 degrees MUSE SYSTEM INTERPRETATION Sinus rhythm Right bundle branch block Left axis deviation Left ventricular hypertrophy with QRS widening and repolarization abnormality Abnormal ECG When compared with ECG of 21-APR-2020 04:33, (unconfirmed) No significant change was found Confirmed by MD Ramos Daniel ([id number]) on 04/23/2020 8:21:12 AM MUSE SYSTEM 04/21/2020 6:47 PM EDT 04/23/2020 8:21 AM EDT Unknown ECG ORDERABLES MUSE SYSTEM documented in this encounter Visit Diagnoses Diagnosis Cholecystitis Cholecystitis, unspecified documented in this encounter Care Teams Medicaid Specialist Relationship Specialty Start Date End Date Reshma Baig MD [address] [place] [address] PCP - General Family Medicine 11/08/18 06/23/21 documented as of this encounter
--- OUTSIDE RECORDS SUMMARY | 2024-04-28 15:29 | XMS_ITS | Encounter Summary ---
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 can help. 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 Equipment at home: quad walker, and cane. 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 Pt limited this date by [...] Minutes, Physical Therapy: 29(evaluation ) Isi Kingston, [facility] Pager: [phone] Physical Therapy Inpatient Rehabilitation Department Associated attestation - Esau Caicedo PT - 04/25/2020 2:42 PM EDT Patient status, treatment interventions, and goals discussed with student. I am in agreement with all details and associated flowsheet rows as documented and was present for all aspects of the patient treatment session. Treatment session performed and note written with this food writer. Please do not hesitate to contact this food writer with any questions, thank you. Esau Isaac, PT Pager #[phone] Inpatient Rehabilitation * Hong Levi MD - [...] AF who presented as a transfer from [facility] for acute cholecystitis with a course complicated [...] Misc Diet: Daily Healthy Menu Choices/Cardiac diet ([facility] DVT ppx: SQH GI ppx: Protonix PT/OT consult ?? Code Status:Attempt Cardiopulmonary Resuscitation - Inpatient ?? Dispo- floor, possible discharge tomorrow Hong Levi MD Internal Medicine PGY3 Cardiology M1-S2 Team Pager [phone] Associated attestation [...] AF who presented as a transfer from [facility] for acute cholecystitis with a course complicated [...] interval not displayed. Recent Labs 04/24/2045704/23/2022404/22/2034904/20/20 0243 CALCIUM 8.7 8.4* 8.4* < > [...] tomorrow Julianna Hendrix MD PGY-1 Team Pager [phone] Associated attestation - Abiodun Chun MD - [...] 04/19/2020 Diet: Daily Healthy Menu Choices/Cardiac diet ([facility] Code: Attempt Cardiopulmonary Resuscitation - Inpatient Room: CV21/CV21-A ID: Shannan Chaudhary ( ) is a 79 y.o. female with a history of HTN, HLD, severe and possible afib, who was transferred from [facility] to the SICU for acute cholecystitis. Her course was complicated by NSTEMI, afib with RVR causing hypotension in the setting of , hypoxic respiratory failure with increasing O2 requirements which prompted heart cath and transfer to [facility] care. Operative Procedures: 04/21/2020 Procedure(s): CARDIAC CATHETERIZATION [...] add comments as necessary): abd/pelvis; Sending Institution [facility]; Date of exam 20200418; I believe a [...] Surgery -Diet: Daily Healthy Menu Choices/Cardiac diet ([facility] /FEN: Keep roque, monitor UOP. K of [...] (records unavailable in eDH but reviewed by [facility] referring MD) who is admitted in transfer [...] w/ severe (valve area 0.8) transferred to [facility] [place] acute cholecystitis. She has undergonePCI of [...] F with DM and HTN--- txf from [facility] with cholecystitis, AF with RVR, hypoxia, and concern for severe . Cath showed not severe, high grade ostial RCA stented, AF converted spontaneously ??? Atrial fibrillation--- paroxysmal ??? Cholecystitis Resolved Hospital Problems No resolved problems to display. Active Hospital Problems Diagnosis ??? 79 yo F with DM and HTN--- txf from [facility] with cholecystitis, AF with RVR, hypoxia, and concern for severe . Cath showed not severe, high grade ostial RCA stented, AF converted spontaneously ??? Atrial fibrillation--- paroxysmal ??? Cholecystitis Resolved Hospital Problems No resolved problems to display. ID: Ms. Chaudhary is a 79F with a PMH of HTN, HLD, DM, possible history of AF who presented as a transfer from [facility] for acute cholecystitis with a course complicated [...] Post-cath EKG showed NSR with RBBB Assessment: Shanann Chaudhary is a 79 y.o. female with [...] floor Julianna Hendrix MD PGY-1 Team Pager [phone] Associated attestation - Abiodun Chun MD - [...] (records unavailable in eDH but reviewed by [facility] referring MD) who is admitted in transfer [...] w/ severe (valve area 0.8) transferred to [facility] [place] acute cholecystitis. She has undergonePCI of [...] and possible afib, who was transferred from [facility] to the SICU for acute cholecystitis. Her course was complicated by NSTEMI, afib with RVR causing hypotension in the setting of , hypoxic respiratory failure with increasing O2 requirements which prompted heart cath and transfer to [facility] care. Operative Procedures: 04/21/2020 Procedure(s): CARDIAC CATHETERIZATION [...] add comments as necessary): abd/pelvis; Sending Institution [facility]; Date of exam 20200418; I believe a [...] Cardiopulmonary Resuscitation - Inpatient Dispo: -ICU status Max W [place], MD 04/22/2020 Associated attestation - Kelin Patel [...] to the planned procedure. Hand Hygiene: The manager apple did perform hand hygiene prior to arterial [...] DO - 04/22/2020 8:10 AM EDT Interventional Electrostatic Paint Operator Note 79 year old female with moderate [...] consult in place. Sandy Camargo DO Interventional Electrostatic Paint Operator * Darwin Connors MD - 04/22/2020 7:12 AM EDT Inpatient Cardiology Progress Note Hospital Day 3 days Active Hospital Problems Diagnosis ??? 79 yo F with DM and HTN--- txf from [facility] with cholecystitis, AF with RVR, hypoxia, and concern for severe . Cath showed not severe, high grade ostial RCA stented, AF converted spontaneously ??? Atrial fibrillation--- paroxysmal ??? Cholecystitis Resolved Hospital Problems No resolved problems to display. Active Hospital Problems Diagnosis ??? 79 yo F with DM and HTN--- txf from [facility] with cholecystitis, AF with RVR, hypoxia, and concern for severe . Cath showed not severe, high grade ostial RCA stented, AF converted spontaneously ??? Atrial fibrillation--- paroxysmal ??? Cholecystitis Resolved Hospital Problems No resolved problems to display. ID: Ms. Chaudhary is a 79F with a PMH of HTN, HLD, DM, possible history of AF who presented as a transfer from [facility] for acute cholecystitis with a course complicated [...] care Julianna Hendrix MD PGY-1 Team Pager [phone] Cardiology Attending Note I have seen and [...] (cmH20): 6 FiO2 (%): (S) 100 %(for ear mold laboratory technician procedure) NIV Measurements: Resp: 23 [...] Weaned FiO2 to 35%. Brought pt to general production laborer @ 1530 on NRB. Placed on [...] Events: TTE yesterday, decision to go to ear mold laboratory technician today with surgical plan pending [...] -- No results for input(s): PHART, PO2ART, FMN1VUM, LACTATEART, BEART in the last 72 hours. [...] -- No results for input(s): PHART, PO2ART, UGU8ZXB, LACTATEART, BEART in the last 72 hours. [...] interventions and documentation on the unit. Gege Garirson MD * Zehra Mcnamara RN - 04/20/2020 [...] (records unavailable in eDH but reviewed by [facility] referring MD) who is admitted in transfer [...] w/ severe (valve area 0.8) transferred to [facility] [place] acute cholecystitis undergoing cardiacwork-up/optimization for potential [...] all questions were answered. [facility] Card[facility] input/assistance greatly appreciated Hong [...] at bedside from 0220 through transfer to [facility]. Life safety paged for assistance when BP began to decline rapidly. See life safety note for details. Critical care also at beside. Roxy Cordon RN * Sophia Ellington RN - 04/20/2020 6:58 AM EDT Patient transferred from by [facility]. HR afib 160s, arden running @ 50. CCS at bedside performing bedside echo, around 0600 pt. Self converted into NSR 80- 90s and arden weaned off. * Tiesha Morgan MD - 04/20/2020 5:07 AM EDT Patient with aortic stenosis with valve area 0.8 (no echo result documented) and acute cholecystitis, transferred to [facility] on 04[place]19 PM. Plan was cardiology pre-op [...] 3999 at bedside for eval. Discussed with aviation medicine specialist, who recommended PO metop tartrate 25 mg [...] 04/19/2020 1:45 PM EDT Patient arrived from [facility] via ambulance. Received report from Rhina. Pt alert and oriented x4. Pt reports pain 10. Pt denies any chest pain, shortness of [...] History & Physical - RED Team, Pager [phone] Chief Complaint: liver abscess History of Present Illness: Shannan Chaudhary is a 79 y.o. female with history of IDDM last A1c 8.5(03/2020), HTN, HLD, moderate-severe who presents with cholecystitis. The patient first began to have a feeling of pain in her right upper quadrant on 04/12, and presented to [facility] ED on 04/18 and found to have a TBili of 2.2 and WBC of 17; alk phos 148, AST/ALT unremarkable, Cr 1.37. Pt CTAP from [facility] revealed a hydropic gallbladder with thickening and [...] on a nitro drip and transferred to [facility]. 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 Pt previously had been fully [...] on phone: None Gets together: None Attends worship service: None Active member of club or [...] Body Fluid Culture, Aerobic & Anaerobic Fluid [[id number]] Collected: 04/28/20 1000 Lab Status: In process Specimen: Fluid Updated: 04/28/20 1124 Body Fluid Culture, Aerobic [[id number]] Collected: 04/28/20 1000 Lab Status: Preliminary result Specimen: Fluid Updated: 04/28/20 1124 Gram Stain -- Few Neutrophils seen No microorganisms seen. Body Fluid Culture, Aerobic & Anaerobic Bile [[id number]] (Abnormal) Collected: 04/22/20 1550 Lab Status: Final result Specimen: Bile Updated: 04/26/20 1544 Body Fluid Culture, Aerobic [[id number]] (Abnormal) (Susceptibility) Collected: 04/22/20 155 Lab Status: [...] using in critically ill patients. Anaerobic Culture [[id number]] Collected: 04/22/20 1550 Lab Status: Final result [...] Routine Diet: Daily Healthy Menu Choices/Cardiac diet ([facility] CHO cont DVT prophylaxis: apixaban Fluids: PO Access: PIV Dispo: transfer to 4600 Code: Attempt Cardiopulmonary Resuscitation - Inpatient York MD Vilma PGY-1, Internal Medicine 04/28/2020 Red Team Pager - #[phone] Associated attestation - Dale Gonzáles MD - [...] of two midnights or is on the [facility] inpatient only procedure list (status C) due [...] is a 79 y.o. female transferred to [facility] for acute cholecystitis and subsequently found to [...] Tube Placement 04/22/2020 Jos Collins P, DO [facility] INTERVENTIONL RAD Medications: No current facility-administered medications [...] file Gets together: Not on file Attends worship service: Not on file Active member of [...] procedure) Assessment: 79 y.o. female transferred to [facility] [place] acute cholecystitis and subsequently found to [...] is a 79 y.o. female transferred to [facility] for acute cholecystitis and subsequently found to [...] Cholecystostomy Tube Placement 04/22/2020 Jos Collins, DO [facility] INTERVENTIONL RAD Medications: No current facility-administered medications [...] mL 2 ??? blood sugar diagnostic strips (aWhereUCH ULTRA TEST) Strip 1 each by Other [...] file Gets together: Not on file Attends worship service: Not on file Active member of [...] procedure) Assessment: 79 y.o. female transferred to [facility] [place] acute cholecystitis and subsequently found to [...] is a 79 y.o. female transferred to [facility] for acute cholecystitis and subsequently found to [...] diabetes mellitus without mention of complication, uncontrolled ZME2014 ??? Hypertension I10 ??? Hyperlipidemia E78.5 ??? [...] mL 2 ??? blood sugar diagnostic strips (GitCafeTOUCH ULTRA TEST) Strip 1 each by Other [...] Brand, 250.02. 1 each 0 ??? Lancets [facility] Use twice daily or as needed. 200 [...] file Gets together: Not on file Attends worship service: Not on file Active member of [...] is a 79 y.o. female transferred to [facility] [place] acute cholecystitis and subsequently found to [...] PCP: Reshma Baig MD PCP phone #: [phone] ID/Chief Complaint: Ms. Chaudhary is a 79F with a PMH of HTN, HLD, DM, possible history of AF who presented as a transfer[facility] for acute cholecystitis with a course complicated by afib with RVR and hypotension now transferring to the Cardiology service due to severe (CORINE 0.8 at OSH) with consideration of direct i ntervention. History of Present Illness: Patient transferred from [facility] on 04/19 for cardiac preop eval due [...] Dr. Patel, patient was taken to the ear mold laboratory technician for RHC and evaluation. In the ear mold laboratory technician she was found to have [...] patient was then transferred back to the [facility]. On conference between the General Surgery attending [...] this report, please contact the number below. Chest One View (Exam End: 04/21/2020 4:51 [...] this report, please contact the number below. compared to prior on 04/20 shows new [...] PLAN: Transfer to Cardiology S1 service, Pager [phone] # NSTEMI, s/p stenting of RCA osteal [...] Rodríguez MD, PGY-1 Cardiology M1-S2, Team Pager [phone] 04/21/2020 Cardiology Attending Note I have seen [...] type 2 DM who was admitted to [facility] due to cholecystitis with plan for cardiology [...] file Gets together: Not on file Attends worship service: Not on file Active member of [...] Lopez MD - 04/19/2020 5:24 PM EDT [facility] Acute Care Surgery Admission H&P History of Present Illness: Shannan Chaudhary is a 79 y.o. female with PMH IDDM and reported aorticstenosis with valve area 0.8 (records unavailable in eDH but reviewed by [facility] referring MD) who is admitted in transfer [...] the subsequent days and she presented to [facility] ED yesterday (Sunday). There her tBili was [...] file Gets together: Not on file Attends worship service: Not on file Active member of [...] OSH with cholecystitis who was transferred to [facility] due to increased cardiac risk associated with [...] last Sunday, was noted on imaging at [facility] to have a hydropic gallbladder withthickening and [...] Ongoing (Interventions Implemented as Appropriate) 05/06/20 1112 05/07/20204805/08/20 001 Daily Care Interventions Self-Care Promotion -- [...] Conf Outcome: Ongoing (Interventions Implemented as Appropriate) 05/08/20 011 Interdisciplinary Rounds/Family Conf Participants nursing;patient Problem: Skin [...] guard placed. Patient had full bath with UNDERCOLLAR BASTER. Left IV dressing changed. Patient went for [...] ADLs]: Hands on Surveillance [continuous indirect monitoring]: Asha, purposeful rounding, room near unit station,call light [...] and heme + results. Pt NPO at [facility] for EGD tmr. Pt denies abdominal pain, [...] file Gets together: Not on file Attends worship service: Not on file Active member of [...] Dr. Graf. Mauro Patel MD Gastroenterology Fellow #[id number] Attending Addendum: I interviewed and examined the patient with Dr. Patel on rounds. I confirm the history and sanchez physical findings outlined in this note. The assessment and plan were formulated in discussion with me at the time of this encounter, and I agree with them as documented. Brigitte Graf MD Gastroenterology and hepatology Pager: [phone] * Plan of Care - Jeevan Curiel [...] Surveillance [continuous indirect monitoring]: Room near nurses [facility] Patient-specific fall prevention interventions for sensory deficits [...] Device Utilized front-wheel walker -- -- 05/01/20 220 Daily Care Interventions Self-Care Promotion -- Campos [...] Outcome: Ongoing (Interventions Implemented as Appropriate) 04/29/20 0808 Coping/Psychosocial Plan Of Care Reviewed With patient [...] CONSULTATION NOTE Patient ID: Shannan Chaudhary Room: [facility]271-A Reason for Consult: liver abcess Consulting Service: Hospital Medicine Consulting Attending: Dale Dash MD Admission Date: 04/19/2020 History of Present Illness: 79 y.o. female with a history of DM2 (A1C 8.5%), severe who was admitted for sepsis secondary tocholecystitis. Due to her severe she was not a surgical candidate at her institution so was sent to [facility] for evaluation. She underwent pre-operative cardiac angiogram [...] DRAINAGE 04/28/2020 CT Guided Drain Peritoneal 04/28/2020 [facility] RAD CAT SCAN ??? HYSTERECTOMY, VAGINAL ??? IR CHOLECYSTOSTOMY TUBE PLACEMENT 04/22/2020 IR Cholecystostomy Tube Placement 04/22/2020 Jos Collins, DO [facility] INTERVENTIONL RAD Medications: ??? apixaban (Eliquis) tablet [...] immunocompromising conditions Social History: Lives alone in [place], [place] but has family members who live [...] 12 CREATININE 0.96 0.80 0.63* Recent Labs 04/29/20 0417 04/28/20 0405 04/27/20 0441 AST 15 12 12 ALT 16 12 13 ALKPHOS 177* 201* 230* BILITOT 0.5 0.4 0.5 Microbiology: Microbiology Results (Last 30 days) Procedure Component Value Units Date/Time Body Fluid Culture, Aerobic & Anaerobic Fluid [[id number]] (Abnormal) Collected: 04/28/20 1000 Lab Status: Preliminary result Specimen: Fluid Updated: 04/29/20 1409 Body Fluid Culture, Aerobic [[id number]] (Abnormal) Collected: 04/28/20 1000 Lab Status: Preliminary result Specimen: Fluid Updated: 04/29/20 1316 Body Fluid Culture One colony of Raoultella ornithinolytica (Klebsiella ornithinolytica) Gram Stain -- Few Neutrophils seen No microorganisms seen. Anaerobic Culture [[id number]] Collected: 04/28/20 1000 Lab Status: Preliminary result Specimen: Fluid Updated: 04/29/20 1409 Anaerobic Culture No anaerobic organisms isolated to date Body Fluid Culture, Aerobic & Anaerobic Bile [[id number]] (Abnormal) Collected: 04/22/20 1550 Lab Status: Final result Specimen: Bile Updated: 04/26/20 1544 Body Fluid Culture, Aerobic [[id number]] (Abnormal) (Susceptibility) Collected: 04/22/20 1550 Lab Status: [...] using in critically ill patients. Anaerobic Culture [[id number]] Collected: 04/22/20 1550 Lab Status: Final result Specimen: Bile Updated: 04/26/20 1542 Anaerobic Culture No anaerobic organisms isolated Radiology/Studies/Procedures: [...] Veda Avila, Infectious Diseases Fellow- PGY4 Pager: [phone] 04/29/2020 6:23 PM Associated attestation - Harris [...] type 2 DM who was transferred to [facility] on 04/19/20 for cardiology evaluation and surgical planning in the setting of acute cholecystitis. Reviewing her hospital course, she developed Afib with RVR complicated by hypotension and hypoxic respiratory failure on 04/20/20, she was taken to the ear mold laboratory technician on 04/21/20 whereshe had a [...] Control Outcome: Ongoing (Interventions Implemented as Appropriate) 04/27/20 2030 04/28/20 0324 Safety Interventions Isolation Precautions -- standard [...] Outcome: Ongoing (Interventions Implemented as Appropriate) 04/26/20 4194 Coping/Psychosocial Plan Of Care Reviewed With patient [...] RN - 04/26/2020 10:51 AM EDT Shannan Francis Heidy was seen today by Cardiac Rehabilitation for: [...] in an outpatient cardiac rehabilitation program at [facility] was discussed. Patient agrees to a referral [...] Outcome: Ongoing (Interventions Implemented as Appropriate) 04/24/20 5453 Coping/Psychosocial Plan Of Care Reviewed With patient [...] are placed. Patient requests referral to :: [facility]. PHONE: [phone] FAX: [phone] Expected date of discharge:next 24-48 hours Referral routed to the Loan Associate for matching with agency/vendor and to provide any required information. * Op Note - Esau Rahman MD - 04/21/2020 6:14 PM EDT [facility] Operative Note Patient Name: Shannan Chaudhary : [id number] MR#: [id number] Case Date: 04/21/2020 Surgeon: Surgeon(s) and Role: * Esau Rahman MD - Primary * Sandy Camargo DO - Fellow Preoperative diagnosis: ?CAD Postoperative diagnosis: Successful PCI with 2 SYNERGY stents Note cardiac output normal, and mean gradient across aortic valve 20 mmHg ASA loaded prior to case, plavix 600 mg load given in the ear mold laboratory technician I spoke with Dr Garrison. [...] evident early complications. Results discussed with referring folder taper operator, service folder taper operator, and with the patient and theirfamily. A [...] Outcome: Ongoing (Interventions Implemented as Appropriate) 04/20/20 4517 Coping/Psychosocial Plan Of Care Reviewed With patient Plan of Care Review Progress progress towards functional goals is fair OUTCOME EVALUATION NOTE: OUTCOME SUMMARY: Machine Joint Cutter assumed care of pt at 07:30. Pt [...] Esau Rahman MD MPH Structural Interventional Cardiology [facility] [address] , #5 Overall clinical summary: ?? This is a 79 y.o. year old female referred by Dr. Lisbeth Cain and Dr. Jos Meli for evaluation of preoperative risk in the [...] to admission. She had not seen a folder taper operator previously. Pertinent past history: Active Hospital Problems [...] tablet 37.5 mg 37.5 mg Oral Q6H [facility] Carol Reyna MD ??? sodium [...] injection 5,000 Units 5,000 Units Subcutaneous Q8H [facility] Jayashree Keenan MD 5,000 Units [...] injection 1-4 Units 1-4 Units Subcutaneous Q4H [facility] Jayashree Keenan MD ??? insulin glargine VIAL injection 25 Units 25 Units Subcutaneous Nightly Jayashree Keenan MD 25Units at 04/19/208 ??? sodium chloride 0.9% infusion 50 mL/hr Intravenous Continuous Suntharalingam, Pirianthini, MD 50 mL/hr at 04/20/20 1400 50 [...] questions, please feel free to contact me: [phone] #5 (bilingual secretary Bert Ortega, and he will have me paged) or [email or web address] 04/20/2020 Referring Providers: MD Alonzo Mcdonald, Bethany Francis MD [address] [place] [address] DR JIANG [address] [place] [id number] ESAU RAHMAN MD 04/20/2020 TESTING: Recent Results [...] QTC Calculated (Bezet) 474 ms Calculated P [place] 59 degrees Calculated R [place] 26 degrees Calculated T [place] 2 degrees INTERPRETATION Normal sinus rhythm Right bundle branch block Abnormal ECG No previous ECGs available POCT Glucose Result Value Ref Range POC Glucose 112 65 - 199 mg/dL EKG 12 Lead Result Value Ref Range Ventricular rate 168 BPM Atrial Rate 174 BPM QRS Duration 128 ms Q-T Interval 288 ms QTC Calculated (Bezet) 481 ms Calculated R [place] 82 degrees Calculated T [place] -18 degrees INTERPRETATION Atrial fibrillation with rapid [...] mg/dL Lactate, whole blood, send to lab ([facility] Result Value Ref Range Lactate WB 1.6 0.5 - 2.2 mmol/L POCT Glucose Result Value Ref Range POC Glucose 128 65 - 199 mg/dL Echocardiogram Transthoracic([facility]) Result Value Ref Range EF 59 Troponin Result Value Ref Range Troponin-T 0.22 (H) 0.00 - 0.00 ng/mL EKG 12 Lead Result Value Ref Range Ventricular rate 77 BPM Atrial Rate 77 BPM P-R Interval 160 ms QRS Duration 120 ms Q-T Interval 406 ms QTC Calculated (Bezet) 459 ms Calculated P [place] 48 degrees Calculated R [place] 27 degrees Calculated T [place] 18 degrees INTERPRETATION Sinus rhythm with marked [...] Oral -- 19 90 % -- -- 04/19/201805 -- -- -- -- -- -- 152.4 [...] injection 1-4 Units 1-4 Units Subcutaneous Q4H [facility] Jayashree Keenan MD ??? insulin glargine VIAL [...] date and time: COVID-19 TESTING 04/18 Order: [id number] (suggestion) Information displayed in this report will [...] HC and that a copy is at [facility]. If AD's have not been completed adult children would be surrogate decision maker per [place] surrogate decision making law. Any patient receiving care at [facility] must abide by [place] law. The hierarchy for surrogate decision making [...] (i) The agent with financial power of tax associate attorney or a conservator appointed in accordance [...] she is independent and active. 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 All able to assist if needed. Behavioral [...] Specific Information: n/a Health/Prescription Coverage: Primary Insurance: [employer] [place] Secondary Insurance: N/A Prescription Coverage: yes Preferred Pharmacy: [facility] Other: n/a Primary Care Provider: Reshma Baig MD [phone] Patient/Caregiver Goals of Treatment: home with no needs once medically ready Potential Needs for Transition of Care: Rehab/SNF: n/a Home Health: n/a DME: n/a Dialysis: n/a Community Resources: n/a Transportation: son Darwin will take her home Other: n/a Anticipated Barriers to Discharge/Special Considerations: none Assessment: Independent woman admitted for chloycystectomy And found to have A FIb with [employer]. Has insurance through [employer] with prescription coverage. Has accessible home and support of adult children. States she has advanced directives and we do not have a copy. Plan: Home no needs once medically ready. Have asked OCM to call [facility] for copy of AD. A member of the Care Management team will continue to monitor progress, follow for continuity of care and assist with transition of care planning. RESHMA ALLRED RN Pager: [phone] * Consult Note - Lisbeth Cain MD - 04/20/2020 10:04 AM EDT Images from the original note were not included. Inpatient Cardiology Consult Note Date of Consultation: 04/20/2020 Admit Date: 04/19/2020 Place of Service: CV21-A Consult Attending: Dr. Cain [facility] Day 1 day Reason for [...] to the hospital as a transfer from [facility] for acute cholecystitis with pain since Sunday. [...] walk up a flight of stairs, do urology physician and other activities without being limited by [...] (23 ml/m2). Nicole: 0.66% risk of perioperative WA or cardiac arrest Geriatric-sensitive RCRI: 2.1% probability of perioperative WA or cardiac arrest Assessment: Ms. Chaudhary is a 79 year old woman with a history of HTN, HLP, DM, severe (CORINE 0.8 at OSH) - asymptomatic, possible history of AF who presented to the hospital as a transfer from [facility] for acute cholecystitis with pain since Sunday. [...] cardioversion (though she is not anticoagulated) -Recommend pattern maker anticoagulation for her AF but this can be deferred at the moment Will continue to follow, page with questions. Anam Cazares MD Electrostatic Paint Operator PGY-5 04/20/2020 Page [phone] The indications, expected benefits, and potential risks [...] interactive; HR remained 140s. Patient moved to [facility] ([facility]), no events en route, report [...] 11:45 AM EDT Upper GI Endoscopy, Diagnostic (76839) 05/03/2020 10:28 AM EDT egd UPPER GI [...] 4:41 AM EDT DIFFERENTIAL, AUTOMATED Routine 04/27/20 4:41 AM EDT HC VENIPUNCTURE Routine 04/27/2020 [...] The procedure was performed under fluoroscopic guidance. Burner Hand fluoroscopic images of the right upper quadrant [...] Glucose, POC 195 65 - 199 mg/dL [facility] Comment: Supplemental ranges: <140 mg/dL before meals <180 mg/dL all other times of the day Blood specimen (specimen) 05/08/2020 11:10 AM EDT 05/08/2020 11:10 AM EDT Kota Gonzales MD POINT OF CARE TEST O ISAIAH Performing Organization Address [facility] Co de Phone Number [facility] [place] [address] * POCT Glucose (05/08/2020 6:51 AM EDT) Glucose, POC 144 65 - 199 mg/dL [facility] Comment: Supplemental ranges: <140 mg/dL before meals <180 mg/dL all other times of the day Blood specimen (specimen) 05/08/2020 6:51 AM EDT 05/08/2020 6:51 AM EDT Milagros Velazquez MD POINT OF CARE TEST O RDERATOAN Performing Organization Address City/[facility]/ZIP Co de Phone Number [facility] [place] [phone] * Differential, Automated (05/08/2020 5:46 AM EDT) Neutrophil % 60.5 % [facility] Neutrophil Absolute 5.19 1.70 - 6.10 x10(3)/[facility] Lymph % 28.3 % [facility] Lymphocytes Abs 2.4 0.9 - 3.2 x10(3)/[facility] Monocyte % 5.8 % [facility] Monocyte Abs 0.5 0.3 - 0.9 x10(3)/[facility] Eos % 3.4 % [facility] Eosinophils Abs 0.3 0.0 - 0.4 x10(3)/[facility] Basophil % 1.5 % [facility] Baso Absolute 0.1 0.0 - 0.1 x10(3)/[facility] Immature Gran % 0.50 % [facility] Comment: Immature granulocytes(IG's)percentage and absolute count will include metamyelocytes, myelocytes, and promyelocytes. Blood smears from CBCs yielding IG's will be scanned manually for concordance. If this scan disagrees with the automated IG or if promyelocytes are noted, a manual differential will be performed. Immature Gran Absolute 0.04 0.00 - 0.04 x10(3)/[facility] Blood specimen (specimen) 05/08/2020 5:46 AM EDT 05/08/2020 6:21 AM EDT Narrative Resulting Agency Comment Spec In Lab Wilner Esparza MD HEMATOLOGY ORDERABLE S [facility] [place] [address] * (ABNORMAL) Hemogram (05/08/2020 5:46 AM EDT) White Blood Cell 8.6 4.0 - 9.5 x10(3)/mc L [facility] Red Blood Cell 3.17(L) 4.00 - 5.21 x10(6)/mc L [facility] Hemoglobin 8.8(L) 11.7 - 15.5 gm/dL [facility] Hematocrit 26.7(L) 35.7 - 45.8 % [facility] Mean Cell Volume 84.2 82.6 - 94.4 fL [facility] Mean Cell Hemoglobin 27.8 27.1 - 32.0 pg [facility] Mean Cell Hemoglobin Concentration 33.0 31.7 - 35.0 gm/dL [facility] Platelet 351 145 - 357 x10(3)/mc L [facility] RDW Standard Deviation 46.5(H) 37.0 - 46.0 fL [facility] RDW coefficient of variation 15.6(H) 11.5 - 14.1 % [facility] Mean Platelet Volume 10.1 7.6 - 12.9 fL [facility] NRBC% auto 0.0 % [facility] NRBC Absolute 0.000 0.000 - 0.000 x10(3)/mc L [facility] Blood specimen (specimen) 05/08/2020 5:46 AM EDT 05/08/2020 6:21 AM EDT Narrative Resulting Agency Comment Spec In Lab Wilner Esparza MD HEMATOLOGY ORDERABLE S [facility] [place] [address] * (ABNORMAL) Basic Metabolic Panel (non-fasting) (05/08/2020 5:46 AM EDT) Glucose 152 65 - 199 mg/dL [facility] Comment:Diabetes: >=200 mg/d L plus symptoms Blood Urea Nitrogen 20(H) 8 - 18 mg/dL [facility] Creatinine 0.85 0.70 - 1.20 mg/dL [facility] Sodium 136 135 - 145 mmol/L [facility] Potassium 4.1 3.5 - 5.0 mmol/L [facility] Comment: Please note: ??Patients with WBC >100,000 may have falsely elevated Potassium levels. ??For accurate Potassium quantification in these patients send serum separator tube (gold top) for subsequent determinations. ??Contact the Clinical Chemistry Laboratory if there are any questions. Chloride 107 98 - 107 mmol/L [facility] Carbon Dioxide 21(L) 22 - 31 mmol/L [facility] Anion Gap 8 5 - 15 mmol/L [facility] Calcium 8.9 8.5 - 10.5 mg/dL [facility] Est Glomerular Filtration Rate 65 >=60 mL/min/1. 73 m?? [facility] Comment: The eGFR was calculated using the CKD-EPI equation. As with all creatinine based estimates of kidney function, eGFR values calculated with the CKD-EPI equation are not accurate in patients with acute kidney failure, extremes of body mass or the acutely ill. [email or web address] eGFR 76 >=60 mL/min/1. 73 m?? [facility] Comment: The eGFR was calculated using the CKD-EPI equation. As with all creatinine based estimates of kidney function, eGFR values calculated with the CKD-EPI equation are not accurate in patients with acute kidney failure, extremes of body mass or the acutely ill. [email or web address] Blood specimen (specimen) 05/08/2020 5:46 AM EDT 05/08/2020 6:20 AM EDT Narrative Resulting Agency Comment Spec In Lab Milagros Velazquez MD CHEMISTRY ORDERABLES Performing Organization Address City/[facility] Co de Phone Number [facility] [place] [address] * Magnesium (05/08/2020 5:46 AM EDT) Magnesium 0.79 0.69 - 1.07 mmol/L [facility] Blood specimen (specimen) 05/08/2020 5:46 AM EDT 05/08/2020 6:20 AM EDT Narrative Resulting Agency Comment Spec In Lab Dale Dash MD CHEMISTRY ORDERABLES Performing Organization Address [facility] Co de Phone Number [facility] [place] [address] * POCT Glucose (05/07/2020 8:35 PM EDT) Glucose, POC 147 65 - 199 mg/dL [facility] Comment: Supplemental ranges: <140 mg/dL before meals <180 mg/dL all other times of the day Blood specimen (specimen) 05/07/2020 8:35 PM EDT 05/07/2020 8:35 PM EDT Milagros Velazquez MD POINT OF CARE TEST O RDERATOAN Performing Organization Address City/[facility]/ZIP Co de Phone Number [facility] [place] [address] * POCT Glucose (05/07/2020 4:26 PM EDT) Glucose, POC 173 65 - 199 mg/dL [facility] Comment: Supplemental ranges: <140 mg/dL before meals <180 mg/dL all other times of the day Blood specimen (specimen) 05/07/2020 4:26 PM EDT 05/07/2020 4:26 PM EDT Milagros Velazquez MD POINT OF CARE TEST O RDERATOAN Performing Organization Address [facility]/ZIP Co de Phone Number [facility] [place] [address] * POCT Glucose (05/07/2020 11:17 AM EDT) Glucose, POC 185 65 - 199 mg/dL [facility] Comment: Supplemental ranges: <140 mg/dL before meals <180 mg/dL all other times of the day Blood specimen (specimen) 05/07/2020 11:17 AM EDT 05/07/2020 11:17 AM EDT Milagros Velazquez MD POINT OF CARE TEST O RDERABLES Performing Organization Address City/[facility]/ZIP Co de Phone Number [facility] [place] [address] * POCT Glucose (05/07/2020 7:20 AM EDT) Glucose, POC 145 65 - 199 mg/dL [facility] Comment: Supplemental ranges: <140 mg/dL before meals <180 mg/dL all other times of the day Blood specimen (specimen) 05/07/2020 7:20 AM EDT 05/07/2020 7:20 AM EDT Milagros Velazquez MD POINT OF CARE TEST O RDERABLES [facility] [place] [address] * Differential, Automated (05/07/2020 6:45 AM EDT) Neutrophil % 53.8 % [facility] Neutrophil Absolute 4.19 1.70 - 6.10 x10(3)/[facility] Lymph % 33.1 % [facility] Lymphocytes Abs 2.6 0.9 - 3.2 x10(3)/[facility] Monocyte % 7.6 % [facility] Monocyte Abs 0.6 0.3 - 0.9 x10(3)/[facility] Eos % 3.2 % [facility] Eosinophils Abs 0.2 0.0 - 0.4 x10(3)/[facility] Basophil % 1.8 % [facility] Baso Absolute 0.1 0.0 - 0.1 x10(3)/[facility] Immature Gran % 0.50 % [facility] Comment: Immature granulocytes(IG's)percentage and absolute count will include metamyelocytes, myelocytes, and promyelocytes. Blood smears from CBCs yielding IG's will be scanned manually for concordance. If this scan disagrees with the automated IG or if promyelocytes are noted, a manual differential will be performed. Immature Gran Absolute 0.04 0.00 - 0.04 x10(3)/[facility] Blood specimen (specimen) 05/07/2020 6:45 AM EDT 05/07/2020 7:01 AM EDT Narrative Resulting Agency Comment Spec In Lab Wilner Esparza MD HEMATOLOGY ORDERABLE S [facility] [place] [address] * (ABNORMAL) Hemogram (05/07/2020 6:45 AM EDT) White Blood Cell 7.8 4.0 - 9.5 x10(3)/mc L [facility] Red Blood Cell 3.19(L) 4.00 - 5.21 x10(6)/mc L [facility] Hemoglobin 8.8(L) 11.7 - 15.5 gm/dL [facility] Hematocrit 26.4(L) 35.7 - 45.8 % [facility] Mean Cell Volume 82.8 82.6 - 94.4 fL [facility] Mean Cell Hemoglobin 27.6 27.1 - 32.0 pg [facility] Mean Cell Hemoglobin Concentration 33.3 31.7 - 35.0 gm/dL [facility] Platelet 360(H) 145 - 357 x10(3)/mc L [facility] RDW Standard Deviation 44.9 37.0 - 46.0 fL [facility] RDW coefficient of variation 15.2(H) 11.5 - 14.1 % [facility] Mean Platelet Volume 9.9 7.6 - 12.9 fL [facility] NRBC% auto 0.0 % [facility] NRBC Absolute 0.000 0.000 - 0.000 x10(3)/mc L [facility] Blood specimen (specimen) 05/07/2020 6:45 AM EDT 05/07/2020 7:01 AM EDT Narrative Resulting Agency Comment Spec In Lab Wilner Esparza MD HEMATOLOGY ORDERABLE S [facility] [place] [address] * (ABNORMAL) Basic Metabolic Panel (non-fasting) (05/07/2020 6:45 AM EDT) Glucose 145 65 - 199 mg/dL [facility] Comment:Diabetes: >=200 mg/d L plus symptoms Blood Urea Nitrogen 18 8 - 18 mg/dL [facility] Creatinine 0.85 0.70 - 1.20 mg/dL [facility] Sodium 137 135 - 145 mmol/L [facility] Potassium 4.1 3.5 - 5.0 mmol/L [facility] Comment: Please note: ??Patients with WBC >100,000 may have falsely elevated Potassium levels. ??For accurate Potassium quantification in these patients send serum separator tube (gold top) for subsequent determinations. ??Contact the Clinical Chemistry Laboratory if there are any questions. Chloride 105 98 - 107 mmol/L [facility] Carbon Dioxide 21(L) 22 - 31 mmol/L [facility] Anion Gap 11 5 - 15 mmol/L [facility] Calcium 8.9 8.5 - 10.5 mg/dL [facility] Est Glomerular Filtration Rate 65 >=60 mL/min/1. 73 m?? [facility] Comment: The eGFR was calculated using the CKD-EPI equation. As with all creatinine based estimates of kidney function, eGFR values calculated with the CKD-EPI equation are not accurate in patients with acute kidney failure, extremes of body mass or the acutely ill. [email or web address] eGFR 76 >=60 mL/min/1. 73 m?? [facility] Comment: The eGFR was calculated using the CKD-EPI equation. As with all creatinine based estimates of kidney function, eGFR values calculated with the CKD-EPI equation are not accurate in patients with acute kidney failure, extremes of body mass or the acutely ill. [email or web address] Blood specimen (specimen) 05/07/2020 6:45 AM EDT 05/07/2020 7:01 AM EDT Narrative Resulting Agency Comment Spec In Lab Milagros Velazquez MD CHEMISTRY ORDERABLES Performing Organization Address [facility] Co de Phone Number [facility] [address] * Magnesium (05/07/2020 6:45 AM EDT) Magnesium 0.82 0.69 - 1.07 mmol/L [facility] Blood specimen (specimen) 05/07/2020 6:45 AM EDT 05/07/2020 7:01 AM EDT Narrative Resulting Agency Comment Spec In Lab Dale aDsh MD CHEMISTRY ORDERABLES Performing Organization Address [facility] de Phone Number [facility] [place] [address] * POCT Glucose (05/07/2020 4:11 AM EDT) Glucose, POC 156 65 - 199 mg/dL [facility] Comment: Supplemental ranges: <140 mg/dL before meals <180 mg/dL all other times of the day Blood specimen (specimen) 05/07/2020 4:11 AM EDT 05/07/2020 4:11 AM EDT Milagros Velazquez MD POINT OF CARE TEST O RDERABLES Performing Organization Address [facility] Co de Phone Number [facility] [address] * POCT Glucose (05/06/2020 11:36 PM EDT) Glucose, POC 172 65 - 199 mg/dL [facility] Comment: Supplemental ranges: <140 mg/dL before meals <180 mg/dL all other times of the day Blood specimen (specimen) 05/06/2020 11:36 PM EDT 05/06/2020 11:36 PM EDT Milagros Velazquez MD POINT OF CARE TEST O RDERABLES Performing Organization Address City/[facility]/ZIP Co de Phone Number [facility] [place] [address] * POCT Glucose (05/06/2020 8:28 PM EDT) Glucose, POC 195 65 - 199 mg/dL [facility] Comment: Supplemental ranges: <140 mg/dL before meals <180 mg/dL all other times of the day Blood specimen (specimen) 05/06/2020 8:28 PM EDT 05/06/2020 8:28 PM EDT Milagros Velazquez MD POINT OF CARE TEST O RDERABLES Performing Organization Address City/[facility] Co de Phone Number [facility] [place] [address] * Differential, Automated (05/06/2020 5:36 PM EDT) Pathologist [facility] Neutrophil % 62.8 % [facility] Neutrophil Absolute 6.07 1.70 - 6.10 x10(3)/[facility] Lymph % 27.5 % [facility] Lymphocytes Abs 2.7 0.9 - 3.2 x10(3)/[facility] Monocyte % 5.7 % [facility] Monocyte Abs 0.6 0.3 - 0.9 x10(3)/[facility] Eos % 2.3 % [facility] Eosinophils Abs 0.2 0.0 - 0.4 x10(3)/[facility] Basophil % 1.3 % [facility] Baso Absolute 0.1 0.0 - 0.1 x10(3)/[facility] Immature Gran % 0.40 % [facility] Comment: Immature granulocytes(IG's)percentage and absolute count will include metamyelocytes, myelocytes, and promyelocytes. Blood smears from CBCs yielding IG's will be scanned manually for concordance. If this scan disagrees with the automated IG or if promyelocytes are noted, a manual differential will be performed. Immature Gran Absolute 0.04 0.00 - 0.04 x10(3)/mcL [facility] Blood specimen (specimen) 05/06/2020 5:36 PM EDT 05/06/2020 6:04 PM EDT Narrative Resulting Agency Comment Spec In Lab Wilner Esparza MD HEMATOLOGY ORDERABLE S [facility] [place] [address] * (ABNORMAL) Hemogram (05/06/2020 5:36 PM EDT) White Blood Cell 9.7(H) 4.0 - 9.5 x10(3)/mc L [facility] Red Blood Cell 3.53(L) 4.00 - 5.21 x10(6)/mc L [facility] Hemoglobin 9.7(L) 11.7 - 15.5 gm/dL [facility] Hematocrit 29.8(L) 35.7 - 45.8 % [facility] Mean Cell Volume 84.4 82.6 - 94.4 fL [facility] Mean Cell Hemoglobin 27.5 27.1 - 32.0 pg [facility] Mean Cell Hemoglobin Concentration 32.6 31.7 - 35.0 gm/dL [facility] Platelet 427(H) 145 - 357 x10(3)/mc L [facility] RDW Standard Deviation 45.3 37.0 - 46.0 [facility] RDW coefficient of variation 14.9(H) 11.5 - 14.1 % [facility] Mean Platelet Volume 10.0 7.6 - 12.9 fL [facility] NRBC% auto 0.0 % [facility] NRBC Absolute 0.000 0.000 - 0.000 x10(3)/mc L [facility] Blood specimen (specimen) 05/06/2020 5:36 PM EDT 05/06/2020 6:04 PM EDT Narrative Resulting Agency Comment Spec In Lab Wilner Esparza MD HEMATOLOGY ORDERABLE S [facility] [place] [address] * Transfuse RBC (05/06/2020 4:30 PM EDT) Milagros Velazquez MD NURSING TREATMENT OR DERABLES - BLOOD ADMIN * Transfuse RBC (05/06/2020 4:30 PM EDT) Milagros Velazquez MD NURSING TREATMENT OR DERABLES - BLOOD ADMIN * POCT Glucose (05/06/2020 4:20 PM EDT) [facility] Glucose, POC 165 65 - 199 mg/dL [facility] Comment: Supplemental ranges: <140 mg/dL before meals <180 mg/dL all other times of the day Blood specimen (specimen) 05/06/2020 4:20 PM EDT 05/06/2020 4:20 PM EDT Milagros Velazquez MD POINT OF CARE TEST O RDERABLES Performing Organization Address [facility]/ZIP Co de Phone Number [facility] [place] [address] * ABORH Recheck Status (05/06/2020 12:46 PM EDT) ABORH Type Recheck Completed [facility] Blood specimen (specimen) 05/06/2020 12:46 PM EDT 05/06/2020 12:51 PM EDT Narrative Resulting Agency Comment Spec In Lab Wilner Esparza MD BLOOD BANK LAB ORDER JAMIE [facility] [place] [address] * Antibody screen (05/06/2020 12:46 PM EDT) Pathologist [facility] Ab Screen Interp Negative [facility] Expires at [id number] on: 05/09/2020 [facility] Blood specimen (specimen) 05/06/2020 12:46 PM EDT 05/06/2020 12:51 PM EDT Narrative Resulting Agency Comment Spec In Lab Wilner Esparza MD BLOOD BANK LAB ORDER JAMIE Performing Organization Address City/[facility]/ZIP Co de Phone Number [facility] [place] [address] * ABO/Rh Typing (05/06/2020 12:46 PM EDT) [facility] ABORH Type O Pos [facility] Blood specimen (specimen) 05/06/2020 12:46 PM EDT 05/06/2020 12:51 PM EDT Narrative Resulting Agency Comment Spec In Lab Wilner Esparza MD BLOOD BANK LAB ORDER JAMIE Performing Organization Address [facility]/ZIP Co de Phone Number [facility] [place] [address] * Prepare RBC (05/06/2020 12:15 PM EDT) [facility] Dispensed? Yes [facility] Blood specimen (specimen) 05/06/2020 12:15 PM EDT 05/06/2020 12:14 PM EDT Narrative Resulting Agency Comment Spec In Lab Milagros Velazquez MD BLOOD BANK PRODUCT O RDERABLES Performing Organization Address City/[facility]/ZIP Co de Phone Number [facility] [place] [address] * (ABNORMAL) POCT Glucose (05/06/2020 11:50 AM EDT) [facility] Glucose, POC 200(H) 65 - 199 mg/dL [facility] Comment: Supplemental ranges: <140 mg/dL before meals <180 mg/dL all other times of the day Blood specimen (specimen) 05/06/2020 11:50 AM EDT 05/06/2020 11:50 AM EDT Milagros Velazquez MD POINT OF CARE TEST O RDERATOAN Performing Organization Address [facility] Co de Phone Number [facility] [place] [address] * POCT Glucose (05/06/2020 7:39 AM EDT) Glucose, POC 153 65 - 199 mg/dL [facility] Comment: Supplemental ranges: <140 mg/dL before meals <180 mg/dL all other times of the day Blood specimen (specimen) 05/06/2020 7:39 AM EDT 05/06/2020 7:39 AM EDT Milagros Velazquez MD POINT OF CARE TEST O RDERATOAN Performing Organization Address [facility] de Phone Number [facility] [place] [address] * Differential, Automated (05/06/2020 5:25 AM EDT) [facility] Neutrophil % 56.6 % [facility] Neutrophil Absolute 4.64 1.70 - 6.10 x10(3)/[facility]AT[facility] Lymph % 30.6 % [facility] Lymphocytes Abs 2.5 0.9 - 3.2 x10(3)/[facility] LABORATORY Monocyte % 7.8 % [facility] Monocyte Abs 0.6 0.3 - 0.9 x10(3)/[facility] LABORATORY Eos % 3.0 % [facility] Eosinophils Abs 0.2 0.0 - 0.4 x10(3)/[facility] LABORATORY Basophil % 1.6 % [facility] Baso Absolute 0.1 0.0 - 0.1 x10(3)/[facility] LABOR[facility]ORY Immature Gran % 0.40 % [facility] Comment: Immature granulocytes(IG's)percentage and absolute count will include metamyelocytes, myelocytes, and promyelocytes. Blood smears from CBCs yielding IG's will be scanned manually for concordance. If this scan disagrees with the automated IG or if promyelocytes are noted, a manual differential will be performed. Immature Gran Absolute 0.03 0.00 - 0.04 x10(3)/mcL [facility] Blood specimen (specimen) 05/06/2020 5:25 AM EDT 05/06/2020 5:25 AM EDT Narrative Resulting Agency Comment Spec In Lab Wilner Esparza MD HEMATOLOGY ORDERABLE S [facility] [place] [address] * (ABNORMAL) Hemogram (05/06/2020 5:25 AM EDT) White Blood Cell 8.2 4.0 - 9.5 x10(3)/mc L [facility] Red Blood Cell 2.58(L) 4.00 - 5.21 x10(6)/mc L [facility] Hemoglobin 7.0(L) 11.7 - 15.5 gm/dL [facility] Hematocrit 22.1(L) 35.7 - 45.8 % [facility] Mean Cell Volume 85.7 82.6 - 94.4 fL [facility] Mean Cell Hemoglobin 27.1 27.1 - 32.0 pg [facility] Mean Cell Hemoglobin Concentration 31.7 31.7 - 35.0 gm/dL [facility] Platelet 364(H) 145 - 357 x10(3)/mc L [facility] RDW Standard Deviation 46.5(H) 37.0 - 46.0 fL [facility] RDW coefficient of variation 15.2(H) 11.5 - 14.1 % [facility] Mean Platelet Volume 9.9 7.6 - 12.9 fL [facility] NRBC% auto 0.0 % [facility] NRBC Absolute 0.000 0.000 - 0.000 x10(3)/mc L [facility] Blood specimen (specimen) 05/06/2020 5:25 AM EDT 05/06/2020 5:25 AM EDT Narrative Resulting Agency Comment Spec In Lab Wilner Esparza MD HEMATOLOGY ORDERABLE S [facility] [place] [address] * (ABNORMAL) Basic Metabolic Panel (non-fasting) (05/06/2020 5:25 AM EDT) Glucose 136 65 - 199 mg/dL [facility] Comment:Diabetes: >=200 mg/d L plus symptoms Blood Urea Nitrogen 24(H) 8 - 18 mg/dL [facility] Creatinine 0.85 0.70 - 1.20 mg/dL [facility] [...] 98 - 107 mmol/L [facility] Carbon Dioxide 21(L) 22 - 31 mmol/L [facility] Anion Gap 10 5 - 15 mmol/L [facility] Calcium 8.7 8.5 - 10.5 mg/dL [facility] Est Glomerular Filtration Rate 65 >=60 mL/min/1. 73 m?? [facility] Comment: The eGFR was calculated using the CKD-EPI equation. As with all creatinine based estimates of kidney function, eGFR values calculated with the CKD-EPI equation are not accurate in patients with acute kidney failure, extremes of body mass or the acutely ill. [email or web address] eGFR 76 >=60 mL/min/1. 73 m?? [facility] Comment: The eGFR was calculated using the CKD-EPI equation. As with all creatinine based estimates of kidney function, eGFR values calculated with the CKD-EPI equation are not accurate in patients with acute kidney failure, extremes of body mass or the acutely ill. [email or web address] Blood specimen (specimen) 05/06/2020 5:25 AM EDT 05/06/2020 5:25 AM EDT Narrative Resulting Agency Comment Spec In Lab Milagros Velazquez MD CHEMISTRY ORDERABLES Performing Organization Address [facility] Co de Phone Number [facility] [place] [place] [address] * Magnesium (05/06/2020 5:25 AM EDT) Magnesium 0.84 0.69 - 1.07 mmol/L [facility] Blood specimen (specimen) 05/06/2020 5:25 AM EDT 05/06/2020 5:25 AM EDT Narrative Resulting Agency Comment Spec In Lab Dale Dash MD CHEMISTRY ORDERABLES Performing Organization Address [facility] Co de Phone Number [facility] [place] [address] * POCT Glucose (05/06/2020 4:08 AM EDT) Glucose, POC 154 65 - 199 mg/dL [facility] Comment: Supplemental ranges: <140 mg/dL before meals <180 mg/dL all other times of the day Blood specimen (specimen) 05/06/2020 4:08 AM EDT 05/06/2020 4:08 AM EDT Milagros Velazquez MD POINT OF CARE TEST O RDERABLES Performing Organization Address [facility] Co de Phone Number [facility] [place] [address] * SCAN DOC: LAB (05/06/2020 12:00 AM EDT) Narrative 05/06/2020 12:00 AM EDT Ordered by an unspecified provider. Scanning Provider MEDIA MGR SCAN EXT O RDR/RSLT * POCT Glucose (05/05/2020 11:58 PM EDT) Glucose, POC 184 65 - 199 mg/dL [facility] Comment: Supplemental ranges: <140 mg/dL before meals <180 mg/dL all other times of the day Blood specimen (specimen) 05/05/2020 11:58 PM EDT 05/05/2020 11:58 PM EDT Milagros Velazquez MD POINT OF CARE TEST O ISAIAH Performing Organization Address [facility]/ZIP Co de Phone Number [facility] [place] [address] * POCT Glucose (05/05/2020 8:18 PM EDT) Glucose, POC 173 65 - 199 mg/dL [facility] Comment: Supplemental ranges: <140 mg/dL before meals <180 mg/dL all other times of the day Blood specimen (specimen) 05/05/2020 8:18 PM EDT 05/05/2020 8:18 PM EDT Milagros Velazquez MD POINT OF CARE TEST O ISAIAH [facility] [place] [address] * POCT Glucose (05/05/2020 4:36 PM EDT) Glucose, POC 147 65 - 199 mg/dL [facility] Comment: Supplemental ranges: <140 mg/dL before meals <180 mg/dL all other times of the day Blood specimen (specimen) 05/05/2020 4:36 PM EDT 05/05/2020 4:36 PM EDT Milagros Velazquez MD POINT OF CARE TEST O RDERABLES Performing Organization Address City/[facility]/ZIP Co de Phone Number [facility] [place] [address] * (ABNORMAL) Hemogram (05/05/2020 2:13 PM EDT) White Blood Cell 9.3 4.0 - 9.5 x10(3)/mc L [facility] Red Blood Cell 2.85(L) 4.00 - 5.21 x10(6)/mc L [facility] Hemoglobin 7.7(L) 11.7 - 15.5 gm/dL [facility] Hematocrit 24.3(L) 35.7 - 45.8 % [facility] Mean Cell Volume 85.3 82.6 - 94.4 fL [facility] Mean Cell Hemoglobin 27.0(L) 27.1 - 32.0 pg [facility] Mean Cell Hemoglobin Concentration 31.7 31.7 - 35.0 gm/dL [facility] Platelet 386(H) 145 - 357 x10(3)/mc L [facility] RDW Standard Deviation 45.7 37.0 - 46.0 fL [facility] RDW coefficient of variation 14.8(H) 11.5 - 14.1 % [facility] Mean Platelet Volume 9.8 7.6 - 12.9 fL [facility] NRBC% auto 0.0 % [facility] NRBC Absolute 0.000 0.000 - 0.000 x10(3)/mc L [facility] Blood specimen (specimen) 05/05/2020 2:13 PM EDT 05/05/2020 2:18 PM EDT Narrative Resulting Agency Comment Spec In Lab Milagros Velazquez MD HEMATOLOGY ORDERABLE S Performing Organization Address City/[facility]/ZIP Co de Phone Number [facility] [place] [address] * POCT Glucose (05/05/2020 12:12 PM EDT) Glucose, POC 177 65 - 199 mg/dL [facility] Comment: Supplemental ranges: <140 mg/dL before meals <180 mg/dL all other times of the day Blood specimen (specimen) 05/05/2020 12:12 PM EDT 05/05/2020 12:12 PM EDT Milagros Velazquez MD POINT OF CARE TEST O RDERABLES Performing Organization Address City/[facility]/ZIP Co de Phone Number [facility] [place] [address] * POCT Glucose (05/05/2020 7:41 AM EDT) Glucose, POC 176 65 - 199 mg/dL [facility] Comment: Supplemental ranges: <140 mg/dL before meals <180 mg/dL all other times of the day Blood specimen (specimen) 05/05/2020 7:41 AM EDT 05/05/2020 7:41 AM EDT Milagros Velazquez MD POINT OF CARE TEST O RDERABLES Performing Organization Address City/[facility]/ZIP Co de Phone Number [facility] [place] [address] * (ABNORMAL) Differential, Automated (05/05/2020 7:34 AM EDT) Neutrophil % 64.5 % [facility] Neutrophil Absolute 5.88 1.70 - 6.10 x10(3)/mc L [facility] Lymph % 24.1 % [facility] Lymphocytes Abs 2.2 0.9 - 3.2 x10(3)/mc L [facility] Monocyte % 7.0 % [facility] Monocyte Abs 0.6 0.3 - 0.9 x10(3)/mc L [facility] Eos % 2.7 % [facility] Eosinophils Abs 0.2 0.0 - 0.4 x10(3)/[facility] Basophil % 1.2 % [facility] Baso Absolute 0.1 0.0 - 0.1 x10(3)/[facility] Immature Gran % 0.50 % [facility] Comment: Immature granulocytes(IG's)percentage and absolute count will include metamyelocytes, myelocytes, and promyelocytes. Blood smears from CBCs yielding IG's will be scanned manually for concordance. If this scan disagrees with the automated IG or if promyelocytes are noted, a manual differential will be performed. Immature Gran Absolute 0.05(H) 0.00 - 0.04 x10(3)/[facility] Blood specimen (specimen) 05/05/2020 7:34 AM EDT 05/05/2020 7:38 AM EDT Narrative Resulting Agency Comment Spec In Lab Wilner Esparza MD HEMATOLOGY ORDERABLE S [facility] [place] [address] * (ABNORMAL) Hemogram (05/05/2020 7:34 AM EDT) White Blood Cell 9.1 4.0 - 9.5 x10(3)/[facility] Red Blood Cell 2.76(L) 4.00 - 5.21 x10(6)/ L [facility] Hemoglobin 7.6(L) 11.7 - 15.5 gm/dL [facility] Hematocrit 23.6(L) 35.7 - 45.8 % [facility] Mean Cell Volume 85.5 82.6 - 94.4 fL [facility] Mean Cell Hemoglobin 27.5 27.1 - 32.0 pg [facility] Mean Cell Hemoglobin Concentration 32.2 31.7 - 35.0 gm/dL [facility] Platelet 386(H) 145 - 357 x10(3)/mc L [facility] RDW Standard Deviation 46.0 37.0 - 46.0 fL [facility] RDW coefficient of variation 15.1(H) 11.5 - 14.1 % [facility] Mean Platelet Volume 9.9 7.6 - 12.9 fL [facility] NRBC% auto 0.0 % [facility] NRBC Absolute 0.000 0.000 - 0.000 x10(3)/mc L [facility] Blood specimen (specimen) 05/05/2020 7:34 AM EDT 05/05/2020 7:38 AM EDT Narrative Resulting Agency Comment Spec In Lab Wilner Esparza MD HEMATOLOGY ORDERABLE S [facility] [place] [address] * (ABNORMAL) Basic Metabolic Panel (non-fasting) (05/05/2020 7:34 AM EDT) Glucose 157 65 - 199 mg/dL [facility] Comment:Diabetes: >=200 mg/d L plus symptoms Blood Urea Nitrogen 28(H) 8 - 18 mg/dL [facility] Creatinine 0.74 0.70 - 1.20 mg/dL [facility] [...] questions. Chloride 105 98 - 107 mmol/L [facility] Carbon Dioxide 21(L) 22 - 31 mmol/L [facility] Anion Gap 11 5 - 15 mmol/L [facility] Calcium 8.5 8.5 - 10.5 mg/dL [facility] Est Glomerular Filtration Rate 77 >=60 mL/min/1. 73 m?? [facility] Comment: The eGFR was calculated using the CKD-EPI equation. As with all creatinine based estimates of kidney function, eGFR values calculated with the CKD-EPI equation are not accurate in patients with acute kidney failure, extremes of body mass or the acutely ill. [email or web address] [email or web address] eGFR 89 >=60 mL/min/1. 73 m?? [facility] Comment: The eGFR was calculated using the CKD-EPI equation. As with all creatinine based estimates of kidney function, eGFR values calculated with the CKD-EPI equation are not accurate in patients with acute kidney failure, extremes of body mass or the acutely ill. [email or web address] Blood specimen (specimen) 05/05/2020 7:34 AM EDT 05/05/2020 7:38 AM EDT Narrative Resulting Agency Comment Spec In Lab Milagros Velazquez MD CHEMISTRY ORDERABLES Performing Organization Address City/[facility]/ZIP Co de Phone Number [facility] [place] [address] * Magnesium (05/05/2020 5:29 AM EDT) Magnesium 0.81 0.69 - 1.07 mmol/L [facility] Blood specimen (specimen) 05/05/2020 5:29 AM EDT 05/05/2020 5:54 AM EDT Narrative Resulting Agency Comment Spec In Lab Dale Dash MD CHEMISTRY ORDERABLES Performing Organization Address City/[facility]/ZIP Co de Phone Number [facility] [place] [address] * POCT Glucose (05/05/2020 4:08 AM EDT) Glucose, POC 148 65 - 199 mg/dL [facility] Comment: Supplemental ranges: <140 mg/dL before meals <180 mg/dL all other times of the day Blood specimen (specimen) 05/05/2020 4:08 AM EDT 05/05/2020 4:08 AM EDT Milagros Velazquez MD POINT OF CARE TEST O ISAIAH Performing Organization Address [facility] de Phone Number [facility] [place] [address] * POCT Glucose (05/04/2020 11:41 PM EDT) Pathologist [facility] Glucose, POC 173 65 - 199 mg/dL [facility] Comment: Supplemental ranges: <140 mg/dL before meals <180 mg/dL all other times of the day Blood specimen (specimen) 05/04/2020 11:41 PM EDT 05/04/2020 11:41 PM EDT Milagros Velazquez MD POINT OF CARE TEST O ISAIAH Performing Organization Address [facility] de Phone Number [facility] [place] [address] * (ABNORMAL) Hemogram (05/04/2020 8:12 PM EDT) [facility] Signature White Blood Cell 11.8(H) 4.0 - 9.5 x10(3)/mc L [facility] Red Blood Cell 3.02(L) 4.00 - 5.21 x10(6)/mc L [facility] Hemoglobin 8.2(L) 11.7 - 15.5 gm/dL [facility] Hematocrit 25.8(L) 35.7 - 45.8 % [facility] Mean Cell Volume 85.4 82.6 - 94.4 fL [facility] Mean Cell Hemoglobin 27.2 27.1 - 32.0 pg [facility] Mean Cell Hemoglobin Concentration 31.8 31.7 - 35.0 gm/dL [facility] Platelet 418(H) 145 - 357 x10(3)/mc L [facility] RDW Standard Deviation 45.9 37.0 - 46.0 fL [facility] RDW coefficient of variation 15.1(H) 11.5 - 14.1 % [facility] Mean Platelet Volume 10.0 7.6 - 12.9 fL [facility] NRBC% auto 0.0 % [facility] NRBC Absolute 0.000 0.000 - 0.000 x10(3)/mc L [facility] Blood specimen (specimen) 05/04/2020 8:12 PM EDT 05/04/2020 8:36 PM EDT Narrative Resulting Agency Comment Spec In Lab Milagros Velazquez MD HEMATOLOGY ORDERABLE S Performing Organization Address [facility]/ZIP Co de Phone Number [facility] [place] [address] * POCT Glucose (05/04/2020 7:45 PM EDT) Glucose, POC 178 65 - 199 mg/dL [facility] Comment: Supplemental ranges: <140 mg/dL before meals <180 mg/dL all other times of the day Blood specimen (specimen) 05/04/2020 7:45 PM EDT 05/04/2020 7:45 PM EDT Milagros Velazquez MD POINT OF CARE TEST O RDERABLES Performing Organization Address City/[facility]/ZIP Co de Phone Number [facility] [place] [address] * POCT Glucose (05/04/2020 4:19 PM EDT) Glucose, POC 160 65 - 199 mg/dL [facility] Comment: Supplemental ranges: <140 mg/dL before meals <180 mg/dL all other times of the day Blood specimen (specimen) 05/04/2020 4:19 PM EDT 05/04/2020 4:19 PM EDT Milagros Velazquez MD POINT OF CARE TEST O RDERABLES [facility] [place] [address] * (ABNORMAL) Hemogram (05/04/2020 2:26 PM EDT) White Blood Cell 10.6(H) 4.0 - 9.5 x10(3)/mc L [facility] Red Blood Cell 3.04(L) 4.00 - 5.21 x10(6)/mc L [facility] Hemoglobin 8.3(L) 11.7 - 15.5 gm/dL [facility] Hematocrit 26.1(L) 35.7 - 45.8 % [facility] Mean Cell Volume 85.9 82.6 - 94.4 fL [facility] Mean Cell Hemoglobin 27.3 27.1 - 32.0 pg [facility] Mean Cell Hemoglobin Concentration 31.8 31.7 - 35.0 gm/dL [facility] Platelet 474(H) 145 - 357 x10(3)/mc L [facility] RDW Standard Deviation 46.4(H) 37.0 - 46.0 fL [facility] RDW coefficient of variation 15.0(H) 11.5 - 14.1 % [facility] Mean Platelet Volume 10.4 7.6 - 12.9 fL [facility] NRBC% auto 0.0 % [facility] NRBC Absolute 0.000 0.000 - 0.000 x10(3)/mc L [facility] Blood specimen (specimen) 05/04/2020 2:26 PM EDT 05/04/2020 2:42 PM EDT Narrative Resulting Agency Comment Spec In Lab Milagros Velazquez MD HEMATOLOGY ORDERABLE S [facility] [place] [address] * POCT Glucose (05/04/2020 11:36 AM EDT) Glucose, POC 174 65 - 199 mg/dL [facility] Comment: Supplemental ranges: <140 mg/dL before meals <180 mg/dL all other times of the day Blood specimen (specimen) 05/04/2020 11:36 AM EDT 05/04/2020 11:36 AM EDT Milagros Velazquez MD POINT OF CARE TEST O RDERATOAN Performing Organization Address City/[facility]/ZIP Co de Phone Number [facility] [place] [address] * POCT Glucose (05/04/2020 8:19 AM EDT) Glucose, POC 167 65 - 199 mg/dL [facility] Comment: Supplemental ranges: <140 mg/dL before meals <180 mg/dL all other times of the day Blood specimen (specimen) 05/04/2020 8:19 AM EDT 05/04/2020 8:19 AM EDT Milagros Velazquez MD POINT OF CARE TEST O RDERABLES [facility] [place] [address] * (ABNORMAL) Differential, Automated (05/04/2020 5:18 AM EDT) Neutrophil % 64.3 % [facility] Neutrophil Absolute 7.33(H) 1.70 - 6.10 x10(3)/mc L [facility] Lymph % 23.3 % [facility] Lymphocytes Abs 2.7 0.9 - 3.2 x10(3)/mc L [facility] Monocyte % 7.4 % [facility] Monocyte Abs 0.8 0.3 - 0.9 x10(3)/mc L [facility] Eos % 3.4 % [facility] Eosinophils Abs 0.4 0.0 - 0.4 x10(3)/[facility] Basophil % 1.1 % [facility] Baso Absolute 0.1 0.0 - 0.1 x10(3)/[facility] Immature Gran % 0.50 % [facility] Comment: Immature granulocytes(IG's)percentage and absolute count will include metamyelocytes, myelocytes, and promyelocytes. Blood smears from CBCs yielding IG's will be scanned manually for concordance. If this scan disagrees with the automated IG or if promyelocytes are noted, a manual differential will be performed. Immature Gran Absolute 0.06(H) 0.00 - 0.04 x10(3)/[facility] Blood specimen (specimen) 05/04/2020 5:18 AM EDT 05/04/2020 5:40 AM EDT Narrative Resulting Agency Comment Spec In Lab Davon Leung MD HEMATOLOGY ORDERABLE S [facility] [place] [address] * (ABNORMAL) Hemogram (05/04/2020 5:18 AM EDT) White Blood Cell 11.4(H) 4.0 - 9.5 x10(3)/[facility] Red Blood Cell 2.97(L) 4.00 - 5.21 x10(6)/[facility] Hemoglobin 8.0(L) 11.7 - 15.5 gm/dL [facility] Hematocrit 25.6(L) 35.7 - 45.8 % [facility] Mean Cell Volume 86.2 82.6 - 94.4 fL [facility] Mean Cell Hemoglobin 26.9(L) 27.1 - 32.0 pg [facility] Mean Cell Hemoglobin Concentration 31.3(L) 31.7 - 35.0 gm/dL [facility] Platelet 415(H) 145 - 357 x10(3)/mc L [facility] RDW Standard Deviation 47.3(H) 37.0 - 46.0 fL [facility] RDW coefficient of variation 15.2(H) 11.5 - 14.1 % [facility] Mean Platelet Volume 10.0 7.6 - 12.9 fL [facility] NRBC% auto 0.0 % [facility] NRBC Absolute 0.000 0.000 - 0.000 x10(3)/mc L [facility] Blood specimen (specimen) 05/04/2020 5:18 AM EDT 05/04/2020 5:40 AM EDT Narrative Resulting Agency Comment Spec In Lab Davon Leung MD HEMATOLOGY ORDERABLE S Performing Organization Address [facility] Co de Phone Number [facility] [place] [address] * Magnesium (05/04/2020 5:18 AM EDT) Magnesium 0.97 0.69 - 1.07 mmol/L [facility] Blood specimen (specimen) 05/04/2020 5:18 AM EDT 05/04/2020 5:40 AM EDT Narrative Resulting Agency Comment Spec In Lab Dale Dash MD CHEMISTRY ORDERABLES Performing Organization Address [facility] Co de Phone Number [facility] [place] [address] * (ABNORMAL) Comprehensive metabolic panel (non-fasting) (05/04/2020 5:18 AM EDT) Glucose 151 65 - 199 mg/dL [facility] Comment:Diabetes: >=200 mg/d L plus symptoms Blood Urea Nitrogen 33(H) 8 - 18 mg/dL [facility] Creatinine 0.92 0.70 - 1.20 mg/dL [facility] Sodium 136 135 - 145 mmol/L [facility] Potassium 4.3 3.5 - 5.0 mmol/L [facility] Comment: Please note: ??Patients with WBC >100,000 may have falsely elevated Potassium levels. ??For accurate Potassium quantification in these patients send serum separator tube (gold top) for subsequent determinations. ??Contact the Clinical Chemistry Laboratory if there are any questions. Chloride 105 98 - 107 mmol/L [facility] Carbon Dioxide 20(L) 22 - 31 mmol/L [facility] Anion Gap 11 5 - 15 mmol/L [facility] Calcium 8.9 8.5 - 10.5 mg/dL [facility] Protein, Total 6.0(L) 6.1 - 8.0 gm/dL [facility] Albumin 2.9(L) 3.2 - 5.2 gm/dL [facility] Aspartate Aminotransferase 12 0 - 30 unit/L [facility] Alanine Aminotransferase 11 0 - 30 unit/L [facility] Alkaline Phosphatase 133(H) 35 - 105 unit/L [facility] Bilirubin, Total 0.3 0.2 - 1.3 mg/dL [facility] Est Glomerular Filtration Rate 59(L) >=60 mL/min/1. 73 m?? [facility] Comment: The eGFR was calculated using the CKD-EPI equation. As with all creatinine based estimates of kidney function, eGFR values calculated with the CKD-EPI equation are not accurate in patients with acute kidney failure, extremes of body mass or the acutely ill. [email or web address] eGFR 69 >=60 mL/min/1. 73 m?? [facility] Comment: The eGFR was calculated using the CKD-EPI equation. As with all creatinine based estimates of kidney function, eGFR values calculated with the CKD-EPI equation are not accurate in patients with acute kidney failure, extremes of body mass or the acutely ill. [email or web address] Blood specimen (specimen) 05/04/2020 5:18 AM EDT 05/04/2020 5:40 AM EDT Narrative Resulting Agency Comment Spec In Lab Dale Dash MD CHEMISTRY ORDERABLES Performing Organization Address [facility] de Phone Number [facility] [place] [address] * POCT Glucose (05/04/2020 3:10 AM EDT) Glucose, POC 163 65 - 199 mg/dL [facility] Comment: Supplemental ranges: <140 mg/dL before meals <180 mg/dL all other times of the day Blood specimen (specimen) 05/04/2020 3:10 AM EDT 05/04/2020 3:10 AM EDT Milagros Velazquez MD POINT OF CARE TEST O RDERABLES Performing Organization Address [facility] Phone Number [facility] [place] [address] * POCT Glucose (05/04/2020 12:07 AM EDT) Glucose, POC 196 65 - 199 mg/dL [facility] Comment: Supplemental ranges: <140 mg/dL before meals <180 mg/dL all other times of the day Blood specimen (specimen) 05/04/2020 12:07 AM EDT 05/04/2020 12:07 AM EDT Milagros Velazquez MD POINT OF CARE TEST O RDERABLES Performing Organization Address [facility] de Phone Number [facility] [place] [address] * (ABNORMAL) POCT Glucose (05/03/2020 7:53 PM EDT) Glucose, POC 214(H) 65 - 199 mg/dL [facility] Comment: Supplemental ranges: <140 mg/dL before meals <180 mg/dL all other times of the day Blood specimen (specimen) 05/03/2020 7:53 PM EDT 05/03/2020 7:53 PM EDT Milagros Velazquez MD POINT OF CARE TEST O ISAIAH Performing Organization Address [facility] Co de Phone Number [facility] [place] [address] * POCT Glucose (05/03/2020 5:01 PM EDT) Glucose, POC 199 65 - 199 mg/dL [facility] Comment: Supplemental ranges: <140 mg/dL before meals <180 mg/dL all other times of the day Blood specimen (specimen) 05/03/2020 5:01 PM EDT 05/03/2020 5:01 PM EDT Milagros Velazquez MD POINT OF CARE TEST O ISAIAH Performing Organization Address [facility] Co de Phone Number [facility] [place] [address] * (ABNORMAL) Hemogram (05/03/2020 1:49 PM EDT) White Blood Cell 11.2(H) 4.0 - 9.5 x10(3)/mc L [facility] Red Blood Cell 3.20(L) 4.00 - 5.21 x10(6)/mc L [facility] Hemoglobin 8.7(L) 11.7 - 15.5 gm/dL [facility] Hematocrit 27.1(L) 35.7 - 45.8 % [facility] Mean Cell Volume 84.7 82.6 - 94.4 fL [facility] Mean Cell Hemoglobin 27.2 27.1 - 32.0 pg [facility] Mean Cell Hemoglobin Concentration 32.1 31.7 - 35.0 gm/dL [facility] Platelet 428(H) 145 - 357 x10(3)/mc L [facility] RDW Standard Deviation 45.1 37.0 - 46.0 fL [facility] RDW coefficient of variation 14.8(H) 11.5 - 14.1 % [facility] Mean Platelet Volume 9.7 7.6 - 12.9 fL [facility] NRBC% auto 0.0 % [facility] NRBC Absolute 0.000 0.000 - 0.000 x10(3)/mc L [facility] Blood specimen (specimen) 05/03/2020 1:49 PM EDT 05/03/2020 1:55 PM EDT Narrative Resulting Agency Comment Spec In Lab Milagros Velazquez MD HEMATOLOGY ORDERABLE S Performing Organization Address [facility] Co de Phone Number [facility] [place] [address] * POCT Glucose (05/03/2020 11:45 AM EDT) Glucose, POC 155 65 - 199 mg/dL [facility] Comment: Supplemental ranges: <140 mg/dL before meals <180 mg/dL all other times of the day Blood specimen (specimen) 05/03/2020 11:45 AM EDT 05/03/2020 11:45 AM EDT Milagros Velazquez MD POINT OF CARE TEST O RDERABLES Performing Organization Address [facility] Co de Phone Number [facility] [place] [address] * UPPER GI ENDOSCOPY (05/03/2020 9:48 AM EDT) UPPER GI ENDOSCOPY [facility] Endoscopy Procedure Date: 05/03/2020 9:48 AM ? Patient Name: Shannan Chaudhary ? Date of : 1940 ? Age: 79 ? Order #: [id number] ? Instrument Name: [id number] ? Procedure: ? Upper GI endoscopy Indications: ? Melena Providers: ? Brigitte Graf MD, Oscar Baird ? Jessica Heath, ? Mobile Sales Assistant, Mauro Johnson MD: ? Medicines: ? Monitored [...] Glucose, POC 164 65 - 199 mg/dL [facility] Comment: Supplemental ranges: <140 mg/dL before meals <180 mg/dL all other times of the day Blood specimen (specimen) 05/03/2020 7:50 AM EDT 05/03/2020 7:50 AM EDT Milagros Velazquez MD POINT OF CARE TEST O RDERABLES [facility] [place] [address] * (ABNORMAL) Differential, Automated (05/03/2020 5:08 AM EDT) Neutrophil % 69.6 % [facility] Neutrophil Absolute 9.11(H) 1.70 - 6.10 x10(3)/mc L [facility] Lymph % 19.6 % [facility] Lymphocytes Abs 2.6 0.9 - 3.2 x10(3)/mc L [facility] Monocyte % 6.7 % [facility] Monocyte Abs 0.9 0.3 - 0.9 x10(3)/mc L [facility] Eos % 2.8 % [facility] Eosinophils Abs 0.4 0.0 - 0.4 x10(3)/mc L [facility] Basophil % 0.8 % [facility] Baso Absolute 0.1 0.0 - 0.1 x10(3)/mc L [facility] Immature Gran % 0.50 % [facility] Comment: Immature granulocytes(IG's)percentage and absolute count will include metamyelocytes, myelocytes, and promyelocytes. Blood smears from CBCs yielding IG's will be scanned manually for concordance. If this scan disagrees with the automated IG or if promyelocytes are noted, a manual differential will be performed. Immature Gran Absolute 0.06(H) 0.00 - 0.04 x10(3)/[facility] Blood specimen (specimen) 05/03/2020 5:08 AM EDT 05/03/2020 5:30 AM EDT Narrative Resulting Agency Comment Spec In Lab Davon Leung MD HEMATOLOGY ORDERABLE S [facility] [place] [address] * (ABNORMAL) Hemogram (05/03/2020 5:08 AM EDT) White Blood Cell 13.1(H) 4.0 - 9.5 x10(3)/[facility] Red Blood Cell 3.04(L) 4.00 - 5.21 x10(6)/[facility] Hemoglobin 8.3(L) 11.7 - 15.5 gm/dL [facility] Hematocrit 25.7(L) 35.7 - 45.8 % [facility] Mean Cell Volume 84.5 82.6 - 94.4 fL [facility] Mean Cell Hemoglobin 27.3 27.1 - 32.0 pg [facility] Mean Cell Hemoglobin Concentration 32.3 31.7 - 35.0 gm/dL [facility] Platelet 409(H) 145 - 357 x10(3)/ L [facility] RDW Standard Deviation 45.7 37.0 - 46.0 fL [facility] RDW coefficient of variation 15.0(H) 11.5 - 14.1 % [facility] Mean Platelet Volume 10.0 7.6 - 12.9 fL [facility] NRBC% auto 0.0 % [facility] NRBC Absolute 0.000 0.000 - 0.000 x10(3)/mc L [facility] Blood specimen (specimen) 05/03/2020 5:08 AM EDT 05/03/2020 5:30 AM EDT Narrative Resulting Agency Comment Spec In Lab Davon Leung MD HEMATOLOGY ORDERABLE S Performing Organization Address [facility]/ZIP Co de Phone Number [facility] [address] * Magnesium (05/03/2020 5:08 AM EDT) Magnesium 0.82 0.69 - 1.07 mmol/L [facility] Blood specimen (specimen) 05/03/2020 5:08 AM EDT 05/03/2020 5:30 AM EDT Narrative Resulting Agency Comment Spec In Lab Dale Dash MD CHEMISTRY ORDERABLES Performing Organization Address [facility] Co de Phone Number [facility] [place] [address] * (ABNORMAL) Comprehensive metabolic panel (non-fasting) (05/03/2020 5:08 AM EDT) Glucose 164 65 - 199 mg/dL [facility] Comment:Diabetes: >=200 mg/d L plus symptoms Blood Urea Nitrogen 30(H) 8 - 18 mg/dL [facility] Creatinine 0.82 0.70 - 1.20 mg/dL [facility] Sodium 138 135 - 145 mmol/L [facility] Potassium 4.2 3.5 - 5.0 mmol/L [facility] Comment: Please note: ??Patients with WBC >100,000 may have falsely elevated Potassium levels. ??For accurate Potassium quantification in these patients send serum separator tube (gold top) for subsequent determinations. ??Contact the Clinical Chemistry Laboratory if there are any questions. Chloride 105 98 - 107 mmol/L [facility] Carbon Dioxide 21(L) 22 - 31 mmol/L [facility] Anion Gap 12 5 - 15 mmol/L [facility] Calcium 9.0 8.5 - 10.5 mg/dL [facility] Protein, Total 6.1 6.1 - 8.0 gm/dL [facility] Albumin 3.0(L) 3.2 - 5.2 gm/dL [facility] Aspartate Aminotransferase 7 0 - 30 unit/L [facility] Alanine Aminotransferase 8 0 - 30 unit/L [facility] Alkaline Phosphatase 136(H) 35 - 105 unit/L [facility] Bilirubin, Total 0.3 0.2 - 1.3 mg/dL [facility] Est Glomerular Filtration Rate 68 >=60 mL/min/1. 73 m?? [facility] Comment: The eGFR was calculated using the CKD-EPI equation. As with all creatinine based estimates of kidney function, eGFR values calculated with the CKD-EPI equation are not accurate in patients with acute kidney failure, extremes of body mass or the acutely ill. [email or web address] eGFR 79 >=60 mL/min/1. 73 m?? [facility] Comment: The eGFR was calculated using the CKD-EPI equation. As with all creatinine based estimates of kidney function, eGFR values calculated with the CKD-EPI equation are not accurate in patients with acute kidney failure, extremes of body mass or the acutely ill. [email or web address] Blood specimen (specimen) 05/03/2020 5:08 AM EDT 05/03/2020 5:30 AM EDT Narrative Resulting Agency Comment Spec In Lab Dale Dash MD CHEMISTRY ORDERABLES [facility] [place] [address] * POCT Glucose (05/03/2020 4:26 AM EDT) Glucose, POC 164 65 - 199 mg/dL [facility] Comment: Supplemental ranges: <140 mg/dL before meals <180 mg/dL all other times of the day Blood specimen (specimen) 05/03/2020 4:26 AM EDT 05/03/2020 4:26 AM EDT Milagros Velazquez MD POINT OF CARE TEST O ISAIAH Performing Organization Address [facility] Co de Phone Number [facility] [place] [address] * POCT Glucose (05/03/2020 12:12 AM EDT) Glucose, POC 175 65 - 199 mg/dL [facility] Comment: Supplemental ranges: <140 mg/dL before meals <180 mg/dL all other times of the day Blood specimen (specimen) 05/03/2020 12:12 AM EDT 05/03/2020 12:12 AM EDT Milagros Velazquez MD POINT OF CARE TEST O ISAIAH Performing Organization Address [facility] Co de Phone Number [facility] [place] [address] * (ABNORMAL) Hemogram (05/02/2020 8:57 PM EDT) White Blood Cell 12.9(H) 4.0 - 9.5 x10(3)/mc L [facility] Red Blood Cell 3.04(L) 4.00 - 5.21 x10(6)/mc L [facility] Hemoglobin 8.3(L) 11.7 - 15.5 gm/dL [facility] Hematocrit 25.9(L) 35.7 - 45.8 % [facility] Mean Cell Volume 85.2 82.6 - 94.4 fL [facility] Mean Cell Hemoglobin 27.3 27.1 - 32.0 pg [facility] Mean Cell Hemoglobin Concentration 32.0 31.7 - 35.0 gm/dL [facility] Platelet 413(H) 145 - 357 x10(3)/mc L [facility] RDW Standard Deviation 45.7 37.0 - 46.0 fL [facility] RDW coefficient of variation 14.8(H) 11.5 - 14.1 % [facility] Mean Platelet Volume 9.7 7.6 - 12.9 fL [facility] NRBC% auto 0.0 % [facility] NRBC Absolute 0.000 0.000 - 0.000 x10(3)/mc L [facility] Blood specimen (specimen) 05/02/2020 8:57 PM EDT 05/02/2020 9:08 PM EDT Narrative Resulting Agency Comment Spec In Lab Milagros Velazquez MD HEMATOLOGY ORDERABLE S Performing Organization Address [facility]/ZIP Co de Phone Number [facility] [place] [address] * (ABNORMAL) POCT Glucose (05/02/2020 7:52 PM EDT) Glucose, POC 246(H) 65 - 199 mg/dL [facility] Comment: Supplemental ranges: <140 mg/dL before meals <180 mg/dL all other times of the day Blood specimen (specimen) 05/02/2020 7:52 PM EDT 05/02/2020 7:52 PM EDT Milagros Velazquez MD POINT OF CARE TEST O RDERABLES [facility] [place] [address] * (ABNORMAL) POCT Glucose (05/02/2020 4:12 PM EDT) Glucose, POC 227(H) 65 - 199 mg/dL [facility] Comment: Supplemental ranges: <140 mg/dL before meals <180 mg/dL all other times of the day Blood specimen (specimen) 05/02/2020 4:12 PM EDT 05/02/2020 4:12 PM EDT Milagros Velazquez MD POINT OF CARE TEST O RDERABLES Performing Organization Address City/[facility]/ZIP Co de Phone Number [facility] [place] [address] * ABORH Recheck Status (05/02/2020 3:13 PM EDT) ABORH Type Recheck Completed [facility] Blood specimen (specimen) 05/02/2020 3:13 PM EDT 05/02/2020 3:17 PM EDT Narrative Resulting Agency Comment Spec In Lab Wilner Esparza MD BLOOD BANK LAB ORDER JAMIE Performing Organization Address City/[facility]/ZIP Co de Phone Number [facility] [place] [address] * Antibody screen (05/02/2020 3:13 PM EDT) Ab Screen Interp Negative [facility] Expires at [id number] on: 05/05/2020 [facility] Blood specimen (specimen) 05/02/2020 3:13 PM EDT 05/02/2020 3:17 PM EDT Narrative Resulting Agency Comment Spec In Lab Wilner Esparza MD BLOOD BANK LAB ORDER JAMIE Performing Organization Address City/[facility]/ZIP Co de Phone Number [facility] [place] [address] * ABO/Rh Typing (05/02/2020 3:13 PM EDT) ABORH Type O Pos [facility] Blood specimen (specimen) 05/02/2020 3:13 PM EDT 05/02/2020 3:17 PM EDT Narrative Resulting Agency Comment Spec In Lab Wilner Esparza MD BLOOD BANK LAB ORDER JAMIE Performing Organization Address City/[facility]/ZIP Co de Phone Number [facility] [place] [address] * (ABNORMAL) Hemogram (05/02/2020 3:13 PM EDT) White Blood Cell 11.8(H) 4.0 - 9.5 x10(3)/mc L [facility] Red Blood Cell 3.18(L) 4.00 - 5.21 x10(6)/mc L [facility] Hemoglobin 8.8(L) 11.7 - 15.5 gm/dL [facility] Hematocrit 27.1(L) 35.7 - 45.8 % [facility] Mean Cell Volume 85.2 82.6 - 94.4 fL [facility] Mean Cell Hemoglobin 27.7 27.1 - 32.0 pg [facility] Mean Cell Hemoglobin Concentration 32.5 31.7 - 35.0 gm/dL [facility] Platelet 420(H) 145 - 357 x10(3)/mc L [facility] RDW Standard Deviation 45.7 37.0 - 46.0 [facility] RDW coefficient of variation 14.7(H) 11.5 - 14.1 % [facility] Mean Platelet Volume 10.0 7.6 - 12.9 fL [facility] NRBC% auto 0.0 % [facility] NRBC Absolute 0.000 0.000 - 0.000 x10(3)/mc L [facility] Blood specimen (specimen) 05/02/2020 3:13 PM EDT 05/02/2020 3:26 PM EDT Narrative Resulting Agency Comment Spec In Lab Milagros Velazquez MD HEMATOLOGY ORDERABLE S Performing Organization Address City/[facility]/ZIP Co de Phone Number [facility] [place] [address] * (ABNORMAL) POCT Glucose (05/02/2020 11:32 AM EDT) Glucose, POC 233(H) 65 - 199 mg/dL [facility] Comment: Supplemental ranges: <140 mg/dL before meals <180 mg/dL all other times of the day Blood specimen (specimen) 05/02/2020 11:32 AM EDT 05/02/2020 11:32 AM EDT Milagros Velazquez MD POINT OF CARE TEST O RDERABLES Performing Organization Address City/[facility]/ZIP Co de Phone Number [facility] [place] [address] * POCT Glucose (05/02/2020 7:46 AM EDT) Glucose, POC 178 65 - 199 mg/dL [facility] Comment: Supplemental ranges: <140 mg/dL before meals <180 mg/dL all other times of the day Blood specimen (specimen) 05/02/2020 7:46 AM EDT 05/02/2020 7:46 AM EDT Milagros Velazquez MD POINT OF CARE TEST O RDERABLES Performing Organization Address [facility]/ZIP Co de Phone Number [facility] [place] [address] * pro-Brain Natriuretic Peptide (05/02/2020 6:13 AM EDT) NT-proBNP 248 <=450 pg/mL [facility] Blood specimen (specimen) Venous Draw / Unknown 05/02/2020 6:13 AM EDT 05/02/2020 6:41 AM EDT Narrative Resulting Agency Comment Spec In Lab Milagros Velazquez MD CHEMISTRY ORDERABLES Performing Organization Address City/[facility]/ZIP Co de Phone Number [facility] [place] [address] * (ABNORMAL) Differential, Automated (05/02/2020 6:13 AM EDT) Neutrophil % 71.3 % [facility] Neutrophil Absolute 9.88(H) 1.70 - 6.10 x10(3)/[facility] Lymph % 18.6 % [facility] Lymphocytes Abs 2.6 0.9 - 3.2 x10(3)/ L [facility] Monocyte % 6.5 % [facility] Monocyte Abs 0.9 0.3 - 0.9 x10(3)/[facility] Eos % 2.4 % [facility] Eosinophils Abs 0.3 0.0 - 0.4 x10(3)/[facility] Basophil % 0.6 % [facility] Baso Absolute 0.1 0.0 - 0.1 x10(3)/[facility] Immature Gran % 0.60 % [facility] Comment: Immature granulocytes(IG's)percentage and absolute count will include metamyelocytes, myelocytes, and promyelocytes. Blood smears from CBCs yielding IG's will be scanned manually for concordance. If this scan disagrees with the automated IG or if promyelocytes are noted, a manual differential will be performed. Immature Gran Absolute 0.09(H) 0.00 - 0.04 x10(3)/[facility] Blood specimen (specimen) 05/02/2020 6:13 AM EDT 05/02/2020 6:31 AM EDT Narrative Resulting Agency Comment Spec In Lab Davon Leung MD HEMATOLOGY ORDERABLE S [facility] [place] [address] * (ABNORMAL) Hemogram (05/02/2020 6:13 AM EDT) White Blood Cell 13.9(H) 4.0 - 9.5 x10(3)/mc L [facility] Red Blood Cell 3.24(L) 4.00 - 5.21 x10(6)/mc L [facility] Hemoglobin 8.9(L) 11.7 - 15.5 gm/dL [facility] Hematocrit 27.5(L) 35.7 - 45.8 % [facility] Mean Cell Volume 84.9 82.6 - 94.4 fL [facility] Mean Cell Hemoglobin 27.5 27.1 - 32.0 pg [facility] Mean Cell Hemoglobin Concentration 32.4 31.7 - 35.0 gm/dL [facility] Platelet 405(H) 145 - 357 x10(3)/ L [facility] RDW Standard Deviation 45.0 37.0 - 46.0 fL [facility] RDW coefficient of variation 14.7(H) 11.5 - 14.1 % [facility] Mean Platelet Volume 10.2 7.6 - 12.9 fL [facility] NRBC% auto 0.0 % [facility] NRBC Absolute 0.000 0.000 - 0.000 x10(3)/[facility] Blood specimen (specimen) 05/02/2020 6:13 AM EDT 05/02/2020 6:31 AM EDT Narrative Resulting Agency Comment Spec In Lab Davon Leung MD HEMATOLOGY ORDERABLE S [facility] [place] [address] * Magnesium (05/02/2020 6:13 AM EDT) Magnesium 0.85 0.69 - 1.07 mmol/L [facility] Blood specimen (specimen) 05/02/2020 6:13 AM EDT 05/02/2020 6:31 AM EDT Narrative Resulting Agency Comment Spec In Lab Dale Dash MD CHEMISTRY ORDERABLES [facility] [place] [address] * (ABNORMAL) Comprehensive metabolic panel (non-fasting) (05/02/2020 6:13 AM EDT) Glucose 164 65 - 199 mg/dL [facility] Comment:Diabetes: >=200 mg/d L plus symptoms Blood Urea Nitrogen 28(H) 8 - 18 mg/dL [facility] Creatinine 0.78 0.70 - 1.20 mg/dL [facility] [...] questions. Chloride 105 98 - 107 mmol/L [facility] Carbon Dioxide 23 22 - 31 mmol/L [facility] Anion Gap 11 5 - 15 mmol/L [facility] Calcium 8.9 8.5 - 10.5 mg/dL [facility] Protein, Total 5.9(L) 6.1 - 8.0 gm/dL [facility] Albumin 3.0(L) 3.2 - 5.2 gm/dL [facility] Aspartate Aminotransferase 9 0 - 30 unit/L [facility] Alanine Aminotransferase 10 0 - 30 unit/L [facility] Alkaline Phosphatase 130(H) 35 - 105 unit/L [facility] Bilirubin, Total 0.4 0.2 - 1.3 mg/dL [facility] Est Glomerular Filtration Rate 72 >=60 mL/min/1. 73 m?? [facility] [facility] Comment: The eGFR was calculated using the CKD-EPI equation. As with all creatinine based estimates of kidney function, eGFR values calculated with the CKD-EPI equation are not accurate in patients with acute kidney failure, extremes of body mass or the acutely ill. [email or web address] eGFR 84 >=60 mL/min/1. 73 m?? [facility] Comment: The eGFR was calculated using the CKD-EPI equation. As with all creatinine based estimates of kidney function, eGFR values calculated with the CKD-EPI equation are not accurate in patients with acute kidney failure, extremes of body mass or the acutely ill. [email or web address] Blood specimen (specimen) 05/02/2020 6:13 AM EDT 05/02/2020 6:31 AM EDT Narrative Resulting Agency Comment Spec In Lab Dale Dash MD CHEMISTRY ORDERABLES Performing Organization Address [facility] de Phone Number [facility] [place] [address] * POCT Glucose (05/02/2020 3:20 AM EDT) Glucose, POC 183 65 - 199 mg/dL [facility] Comment: Supplemental ranges: <140 mg/dL before meals <180 mg/dL all other times of the day Blood specimen (specimen) 05/02/2020 3:20 AM EDT 05/02/2020 3:20 AM EDT Milagros Velazquez MD POINT OF CARE TEST O RDERABLES Performing Organization Address [facility] Co de Phone Number [facility] [place] [address] * (ABNORMAL) POCT Glucose (05/01/2020 11:42 PM EDT) Glucose, POC 224(H) 65 - 199 mg/dL [facility] Comment: Supplemental ranges: <140 mg/dL before meals <180 mg/dL all other times of the day Blood specimen (specimen) 05/01/2020 11:42 PM EDT 05/01/2020 11:42 PM EDT Milagros Velazquez MD POINT OF CARE TEST O RDERABLES Performing Organization Address [facility] de Phone Number [facility] [place] [address] * (ABNORMAL) POCT Glucose (05/01/2020 8:14 PM EDT) Glucose, POC 202(H) 65 - 199 mg/dL [facility] Comment: Supplemental ranges: <140 mg/dL before meals <180 mg/dL all other times of the day Blood specimen (specimen) 05/01/2020 8:14 PM EDT 05/01/2020 8:14 PM EDT Milagros Velazquez MD POINT OF CARE TEST O RDERATOAN Performing Organization Address [facility] de Phone Number [facility] [place] [address] * (ABNORMAL) POCT Glucose (05/01/2020 4:51 PM EDT) Glucose, POC 204(H) 65 - 199 mg/dL [facility] Comment: Supplemental ranges: <140 mg/dL before meals <180 mg/dL all other times of the day Blood specimen (specimen) 05/01/2020 4:51 PM EDT 05/01/2020 4:51 PM EDT Milagros Velazquez MD POINT OF CARE TEST O RDERATOAN Performing Organization Address [facility] de Phone Number [facility] [place] [address] * (ABNORMAL) POCT Glucose (05/01/2020 11:52 AM EDT) Glucose, POC 213(H) 65 - 199 mg/dL [facility] Comment: Supplemental ranges: <140 mg/dL before meals <180 mg/dL all other times of the day Blood specimen (specimen) 05/01/2020 11:52 AM EDT 05/01/2020 11:52 AM EDT Milagros Velazquez MD POINT OF CARE TEST O RDERABLES Performing Organization Address City/[facility]/ZIP Co de Phone Number [facility] [place] [address] * POCT Glucose (05/01/2020 7:40 AM EDT) Glucose, POC 167 65 - 199 mg/dL [facility] Comment: Supplemental ranges: <140 mg/dL before meals <180 mg/dL all other times of the day Blood specimen (specimen) 05/01/2020 7:40 AM EDT 05/01/2020 7:40 AM EDT Dale Dash MD POINT OF CARE TEST O RDERABLES Performing Organization Address [facility] Co de Phone Number [facility] [place] [address] * (ABNORMAL) Differential, Automated (05/01/2020 5:23 AM EDT) [facility] Neutrophil % 74.6 % [facility] Neutrophil Absolute 10.06(H) 1.70 - 6.10 x10(3)/mc L [facility] Lymph % 14.7 % [facility] Lymphocytes Abs 2.0 0.9 - 3.2 x10(3)/mc L [facility] Monocyte % 6.9 % [facility] Monocyte Abs 0.9 0.3 - 0.9 x10(3)/mc L [facility] Eos % 2.3 % [facility] Eosinophils Abs 0.3 0.0 - 0.4 x10(3)/mc L [facility] Basophil % 0.5 % [facility] Baso Absolute 0.1 0.0 - 0.1 x10(3)/mc L [facility] Immature Gran % 1.00 % [facility] Comment: Immature granulocytes(IG's)percentage and absolute count will include metamyelocytes, myelocytes, and promyelocytes. Blood smears from CBCs yielding IG's will be scanned manually for concordance. If this scan disagrees with the automated IG or if promyelocytes are noted, a manual differential will be performed. Immature Gran Absolute 0.14(H) 0.00 - 0.04 x10(3)/mc L [facility] Blood specimen (specimen) 05/01/2020 5:23 AM EDT 05/01/2020 5:40 AM EDT Narrative Resulting Agency Comment Spec In Lab Davon Leung MD HEMATOLOGY ORDERABLE S [facility] [place] [address] * (ABNORMAL) Hemogram (05/01/2020 5:23 AM EDT) White Blood Cell 13.5(H) 4.0 - 9.5 x10(3)/mc L [facility] Red Blood Cell 3.38(L) 4.00 - 5.21 x10(6)/mc L [facility] Hemoglobin 9.2(L) 11.7 - 15.5 gm/dL [facility] Hematocrit 28.6(L) 35.7 - 45.8 % [facility] Mean Cell Volume 84.6 82.6 - 94.4 fL [facility] Mean Cell Hemoglobin 27.2 27.1 - 32.0 pg [facility] Mean Cell Hemoglobin Concentration 32.2 31.7 - 35.0 gm/dL [facility] Platelet 372(H) 145 - 357 x10(3)/mc L [facility] RDW Standard Deviation 45.1 37.0 - 46.0 fL [facility] RDW coefficient of variation 14.7(H) 11.5 - 14.1 % [facility] Mean Platelet Volume 9.9 7.6 - 12.9 fL [facility] NRBC% auto 0.0 % [facility] NRBC Absolute 0.000 0.000 - 0.000 x10(3)/mc L [facility] Blood specimen (specimen) 05/01/2020 5:23 AM EDT 05/01/2020 5:40 AM EDT Narrative Resulting Agency Comment Spec In Lab Davon Leung MD HEMATOLOGY ORDERABLE S Performing Organization Address [facility] Co de Phone Number [facility] [place] [address] * Magnesium (05/01/2020 5:23 AM EDT) Magnesium 0.89 0.69 - 1.07 mmol/L [facility] Blood specimen (specimen) 05/01/2020 5:23 AM EDT 05/01/2020 5:40 AM EDT Narrative Resulting Agency Comment Spec In Lab Dale Dash MD CHEMISTRY ORDERABLES Performing Organization Address [facility] Co de Phone Number [facility] [place] [address] * (ABNORMAL) Comprehensive metabolic panel (non-fasting) (05/01/2020 5:23 AM EDT) Glucose 170 65 - 199 mg/dL [facility] Comment:Diabetes: >=200 mg/d L plus symptoms Blood Urea Nitrogen 29(H) 8 - 18 mg/dL [facility] Creatinine 0.77 0.70 - 1.20 mg/dL [facility] Sodium 136 135 - 145 mmol/L [facility] [...] 98 - 107 mmol/L [facility] Carbon Dioxide 22 22 - 31 mmol/L [facility] Anion Gap 10 5 - 15 mmol/L [facility] Calcium 8.8 8.5 - 10.5 mg/dL [facility] Protein, Total 6.1 6.1 - 8.0 gm/dL [facility] Albumin 2.9(L) 3.2 - 5.2 gm/dL [facility] Aspartate Aminotransferase 10 0 - 30 unit/L [facility] Alanine Aminotransferase 11 0 - 30 unit/L [facility] Alkaline Phosphatase 140(H) 35 - 105 unit/L [facility] Bilirubin, Total 0.4 0.2 - 1.3 mg/dL [facility] Est Glomerular Filtration Rate 73 >=60 mL/min/1. 73 m?? [facility] Comment: The eGFR was calculated using the CKD-EPI equation. As with all creatinine based estimates of kidney function, eGFR values calculated with the CKD-EPI equation are not accurate in patients with acute kidney failure, extremes of body mass or the acutely ill. [email or web address] eGFR 85 >=60 mL/min/1. 73 m?? [facility] Comment: The eGFR was calculated using the CKD-EPI equation. As with all creatinine based estimates of kidney function, eGFR values calculated with the CKD-EPI equation are not accurate in patients with acute kidney failure, extremes of body mass or the acutely ill. [email or web address] Blood specimen (specimen) 05/01/2020 5:23 AM EDT 05/01/2020 5:40 AM EDT Narrative Resulting Agency Comment Spec In Lab Dale Dash MD CHEMISTRY ORDERABLES [facility] [place] [address] * (ABNORMAL) POCT Glucose (05/01/2020 4:07 AM EDT) Glucose, POC 204(H) 65 - 199 mg/dL [facility] Comment: Supplemental ranges: <140 mg/dL before meals <180 mg/dL all other times of the day Blood specimen (specimen) 05/01/2020 4:07 AM EDT 05/01/2020 4:07 AM EDT Dale Dash MD POINT OF CARE TEST O ISAIAH Performing Organization Address City/[facility]/ZIP Co de Phone Number [facility] [place] [address] * POCT Glucose (04/30/2020 11:31 PM EDT) Glucose, POC 196 65 - 199 mg/dL [facility] Comment: Supplemental ranges: <140 mg/dL before meals <180 mg/dL all other times of the day Blood specimen (specimen) 04/30/2020 11:31 PM EDT 04/30/2020 11:31 PM EDT Dale Dash MD POINT OF CARE TEST O ISAIAH Performing Organization Address [facility] Co de Phone Number [facility] [place] [address] * (ABNORMAL) POCT Glucose (04/30/2020 8:15 PM EDT) Glucose, POC 210(H) 65 - 199 mg/dL [facility] Comment: Supplemental ranges: <140 mg/dL before meals <180 mg/dL all other times of the day Blood specimen (specimen) 04/30/2020 8:15 PM EDT 04/30/2020 8:15 PM EDT Dale Dash MD POINT OF CARE TEST O ISAIAH Performing Organization Address City/[facility] Co de Phone Number [facility] [place] [address] * (ABNORMAL) POCT Glucose (04/30/2020 3:37 PM EDT) Glucose, POC 200(H) 65 - 199 mg/dL [facility] Comment: Supplemental ranges: <140 mg/dL before meals <180 mg/dL all other times of the day Blood specimen (specimen) 04/30/2020 3:37 PM EDT 04/30/2020 3:37 PM EDT Dale Dash MD POINT OF CARE TEST O ISAIAH Performing Organization Address [facility] Phone Number [facility] [place] [address] * (ABNORMAL) POCT Glucose (04/30/2020 11:38 AM EDT) Glucose, POC 258(H) 65 - 199 mg/dL [facility] Comment: Supplemental ranges: <140 mg/dL before meals <180 mg/dL all other times of the day Blood specimen (specimen) 04/30/2020 11:38 AM EDT 04/30/2020 11:38 AM EDT Dale Dash MD POINT OF CARE TEST Gage COLON Performing Organization Address [facility] Phone Number [facility] [place] [address] * EKG 12 Lead (04/30/2020 8:01 AM EDT) Pathologist [facility] Ventricular rate 56 BPM MUSE SYSTEM Atrial Rate 56 BPM MUSE SYSTEM P-R Interval 158 ms MUSE SYSTEM QRS Duration 116 ms MUSE SYSTEM Q-T Interval 512 ms MUSE SYSTEM QTC Calculated (Bezet) 494 ms MUSE SYSTEM Calculated P [place] 18 degrees MUSE SYSTEM Calculated R [place] 9 degrees MUSE SYSTEM Calculated T [place] -21 degrees MUSE SYSTEM INTERPRETATION Sinus bradycardia Right bundle branch block Abnormal ECG When compared with ECG of 21-APR-2020 18:47, Vent. rate has decreased BY ??41 BPM Left axis deviation is no longer Present I personally reviewed the tracing and edited the fellows interpretation Confirmed by fellow Ross Sood ([id number]) on 04/30/2020 10:25:30 AM Confirmed by MD Pandya Stanislav ([id number]) on 04/30/2020 4:45:51 PM MUSE SYSTEM 04/30/2020 8:01 AM EDT 04/30/2020 4:45 PM EDT Dale Dash MD ECG ORDERABLES Performing Organization Address City/[facility]/ZIP Co de Phone Number M[facility] SYSTEM * POCT Glucose (04/30/2020 7:18 AM EDT) Glucose, POC 166 65 - 199 mg/dL [facility] Comment: Supplemental ranges: <140 mg/dL before meals <180 mg/dL all other times of the day Blood specimen (specimen) 04/30/2020 7:18 AM EDT 04/30/2020 7:18 AM EDT Dale Dash MD POINT OF CARE TEST O RDERABLES Performing Organization Address City/[facility]/ZIP Co de Phone Number [facility] [place] [address] * (ABNORMAL) Differential, Automated (04/30/2020 6:36 AM EDT) Neutrophil % 75.5 % [facility] Neutrophil Absolute 13.00(H) 1.70 - 6.10 x10(3)/mc L [facility] Lymph % 12.6 % [facility] Lymphocytes Abs 2.2 0.9 - 3.2 x10(3)/mc L [facility] Monocyte % 7.6 % [facility] Monocyte Abs 1.3(H) 0.3 - 0.9 x10(3)/mc L [facility] Eos % 2.6 % [facility] Eosinophils Abs 0.4 0.0 - 0.4 x10(3)/mc L [facility] Basophil % 0.5 % [facility] Baso Absolute 0.1 0.0 - 0.1 x10(3)/mc L [facility] Immature Gran % 1.20 % [facility] Comment: Immature granulocytes(IG's)percentage and absolute count will include metamyelocytes, myelocytes, and promyelocytes. Blood smears from CBCs yielding IG's will be scanned manually for concordance. If this scan disagrees with the automated IG or if promyelocytes are noted, a manual differential will be performed. Immature Gran Absolute 0.20(H) 0.00 - 0.04 x10(3)/mc L [facility] Blood specimen (specimen) 04/30/2020 6:36 AM EDT 04/30/2020 6:44 AM EDT Narrative Resulting Agency Comment Spec In Lab Davon Leung MD HEMATOLOGY ORDERABLE S [facility] [place] [address] * (ABNORMAL) Hemogram (04/30/2020 6:36 AM EDT) White Blood Cell 17.2(H) 4.0 - 9.5 x10(3)/mc L [facility] Red Blood Cell 3.60(L) 4.00 - 5.21 x10(6)/mc L [facility] Hemoglobin 9.7(L) 11.7 - 15.5 gm/dL [facility] Hematocrit 31.1(L) 35.7 - 45.8 % [facility] Mean Cell Volume 86.4 82.6 - 94.4 fL [facility] Mean Cell Hemoglobin 26.9(L) 27.1 - 32.0 pg [facility] Mean Cell Hemoglobin Concentration 31.2(L) 31.7 - 35.0 gm/dL [facility] Platelet 375(H) 145 - 357 x10(3)/mc L [facility] RDW Standard Deviation 47.2(H) 37.0 - 46.0 fL [facility] RDW coefficient of variation 14.9(H) 11.5 - 14.1 % [facility] Mean Platelet Volume 9.7 7.6 - 12.9 fL [facility] NRBC% auto 0.0 % [facility] NRBC Absolute 0.000 0.000 - 0.000 x10(3)/mc L [facility] Blood specimen (specimen) 04/30/2020 6:36 AM EDT 04/30/2020 6:44 AM EDT Narrative Resulting Agency Comment Spec In Lab Davon Leung MD HEMATOLOGY ORDERABLE S Performing Organization Address [facility] Co de Phone Number [facility] [place] [address] * Magnesium (04/30/2020 6:36 AM EDT) Magnesium 0.94 0.69 - 1.07 mmol/L [facility] Blood specimen (specimen) 04/30/2020 6:36 AM EDT 04/30/2020 6:44 AM EDT Narrative Resulting Agency Comment Spec In Lab Dale Dash MD CHEMISTRY ORDERABLES Performing Organization Address [facility] Co de Phone Number [facility] [place] [address] * (ABNORMAL) Comprehensive metabolic panel (non-fasting) (04/30/2020 6:36 AM EDT) Glucose 166 65 - 199 mg/dL [facility] Comment:Diabetes: >=200 mg/d L plus symptoms Blood Urea Nitrogen 34(H) 8 - 18 mg/dL [facility] Creatinine 1.05 0.70 - 1.20 mg/dL [facility] Sodium 135 135 - 145 mmol/L [facility] Potassium 3.8 3.5 - 5.0 mmol/L [facility] Comment: Please note: ??Patients with WBC >100,000 may have falsely elevated Potassium levels. ??For accurate Potassium quantification in these patients send serum separator tube (gold top) for subsequent determinations. ??Contact the Clinical Chemistry Laboratory if there are any questions. Chloride 100 98 - 107 mmol/L [facility] Carbon Dioxide 22 22 - 31 mmol/L [facility] Anion Gap 13 5 - 15 mmol/L [facility] Calcium 8.5 8.5 - 10.5 mg/dL [facility] Protein, Total 6.3 6.1 - 8.0 gm/dL [facility] Albumin 3.1(L) 3.2 - 5.2 gm/dL [facility] Aspartate Aminotransferase 14 0 - 30 unit/L [facility] Alanine Aminotransferase 12 0 - 30 unit/L [facility] Alkaline Phosphatase 152(H) 35 - 105 unit/L [facility] Bilirubin, Total 0.6 0.2 - 1.3 mg/dL [facility] Est Glomerular Filtration Rate 50(L) >=60 mL/min/1. 73 m?? [facility] Comment: The eGFR was calculated using the CKD-EPI equation. As with all creatinine based estimates of kidney function, eGFR values calculated with the CKD-EPI equation are not accurate in patients with acute kidney failure, extremes of body mass or the acutely ill. [email or web address] eGFR 58(L) >=60 mL/min/1. 73 m?? [facility] Comment: The eGFR was calculated using the CKD-EPI equation. As with all creatinine based estimates of kidney function, eGFR values calculated with the CKD-EPI equation are not accurate in patients with acute kidney failure, extremes of body mass or the acutely ill. [email or web address] Blood specimen (specimen) 04/30/2020 6:36 AM EDT 04/30/2020 6:44 AM EDT Narrative Resulting Agency Comment Spec In Lab Dale Dash MD CHEMISTRY ORDERABLES [facility] [place] [address] * POCT Glucose (04/30/2020 4:14 AM EDT) Glucose, POC 190 65 - 199 mg/dL [facility] Comment: Supplemental ranges: <140 mg/dL before meals <180 mg/dL all other times of the day Blood specimen (specimen) 04/30/2020 4:14 AM EDT 04/30/2020 4:14 AM EDT Dale Dash MD POINT OF CARE TEST O RDERATOAN [facility] [place] [address] * (ABNORMAL) POCT Glucose (04/29/2020 11:08 PM EDT) Glucose, POC 218(H) 65 - 199 mg/dL [facility] Comment: Supplemental ranges: <140 mg/dL before meals <180 mg/dL all other times of the day Blood specimen (specimen) 04/29/2020 11:08 PM EDT 04/29/2020 11:08 PM EDT Dale Dash MD POINT OF CARE TEST O ISAIAH Performing Organization Address [facility]/ZIP Co de Phone Number [facility] [place] [address] * (ABNORMAL) POCT Glucose (04/29/2020 7:52 PM EDT) Glucose, POC 204(H) 65 - 199 mg/dL [facility] Comment: Supplemental ranges: <140 mg/dL before meals <180 mg/dL all other times of the day Blood specimen (specimen) 04/29/2020 7:52 PM EDT 04/29/2020 7:52 PM EDT Dale Dash MD POINT OF CARE TEST O ISAIAH [facility] [place] [address] * POCT Glucose (04/29/2020 4:17 PM EDT) Glucose, POC 165 65 - 199 mg/dL [facility] Comment: Supplemental ranges: <140 mg/dL before meals <180 mg/dL all other times of the day Blood specimen (specimen) 04/29/2020 4:17 PM EDT 04/29/2020 4:17 PM EDT Dale Dash MD POINT OF CARE TEST O RDERABLES [facility] [place] [address] * Blood culture (04/29/2020 3:28 PM EDT) Blood Culture No growth at 5 days. [facility] Blood specimen (specimen) STRUCTURE OF RIGHT HAND / Unknown 04/29/2020 3:28 PM EDT 04/29/2020 4:21 PM EDT Narrative Resulting Agency Comment Spec In Lab Dale Dash MD MICROBIOLOGY - BLOOD ORDERABLES Performing Organization Address City/[facility]/ZIP Co de Phone Number [facility] [place] [address] * Blood culture (04/29/2020 3:28 PM EDT) Blood Culture No growth at 5 days. [facility] Blood specimen (specimen) STRUCTURE OF LEFT FOREARM / Unknown 04/29/2020 3:28 PM EDT 04/29/2020 4:21 PM EDT Comment:#1 Narrative Resulting Agency Comment Spec In Lab Dale Dash MD MICROBIOLOGY - BLOOD ORDERABLES [facility] [place] [address] * (ABNORMAL) POCT Glucose (04/29/2020 11:55 AM EDT) Glucose, POC 227(H) 65 - 199 mg/dL [facility] Comment: Supplemental ranges: <140 mg/dL before meals <180 mg/dL all other times of the day Blood specimen (specimen) 04/29/2020 11:55 AM EDT 04/29/2020 11:55 AM EDT Dale Dash MD POINT OF CARE TEST O RDERATOAN Performing Organization Address [facility] Co de Phone Number [facility] [place] [address] * POCT Glucose (04/29/2020 7:38 AM EDT) Glucose, POC 125 65 - 199 mg/dL [facility] Comment: Supplemental ranges: <140 mg/dL before meals <180 mg/dL all other times of the day Blood specimen (specimen) 04/29/2020 7:38 AM EDT 04/29/2020 7:38 AM EDT Dale Dash MD POINT OF CARE TEST O ISAIAH Performing Organization Address [facility] Co de Phone Number [facility] [place] [address] * (ABNORMAL) Differential, Automated (04/29/2020 4:17 AM EDT) Pathologist [facility] Neutrophil % 78.6 % [facility] Neutrophil Absolute 14.16(H) 1.70 - 6.10 x10(3)/mc L [facility] Lymph % 10.5 % [facility] Lymphocytes Abs 1.9 0.9 - 3.2 x10(3)/mc L [facility] Monocyte % 6.4 % [facility] Monocyte Abs 1.2(H) 0.3 - 0.9 x10(3)/mc L [facility] Eos % 2.1 % [facility] Eosinophils Abs 0.4 0.0 - 0.4 x10(3)/mc L [facility] Basophil % 0.6 % [facility] Baso Absolute 0.1 0.0 - 0.1 x10(3)/mc L [facility] Immature Gran % 1.80 % [facility] Comment: Immature granulocytes(IG's)percentage and absolute count will include metamyelocytes, myelocytes, and promyelocytes. Blood smears from CBCs yielding IG's will be scanned manually for concordance. If this scan disagrees with the automated IG or if promyelocytes are noted, a manual differential will be performed. Immature Gran Absolute 0.32(H) 0.00 - 0.04 x10(3)/ L [facility] Blood specimen (specimen) 04/29/2020 4:17 AM EDT 04/29/2020 4:47 AM EDT Narrative Resulting Agency Comment Spec In Lab Davon Leung MD HEMATOLOGY ORDERABLE S Performing Organization Address City/State/[facility] Co de Phone Number [facility] [place] [address] * (ABNORMAL) Hemogram (04/29/2020 4:17 AM EDT) White Blood Cell 18.0(H) 4.0 - 9.5 x10(3)/ L [facility] Red Blood Cell 3.63(L) 4.00 - 5.21 x10(6)/ L [facility] Hemoglobin 9.8(L) 11.7 - 15.5 gm/dL [facility] Hematocrit 30.1(L) 35.7 - 45.8 % [facility] Mean Cell Volume 82.9 82.6 - 94.4 fL [facility] Mean Cell Hemoglobin 27.0(L) 27.1 - 32.0 pg [facility] Mean Cell Hemoglobin Concentration 32.6 31.7 - 35.0 gm/dL [facility] Platelet 397(H) 145 - 357 x10(3)/[facility] RDW Standard Deviation 44.8 37.0 - 46.0 fL [facility] RDW coefficient of variation 14.8(H) 11.5 - 14.1 % [facility] Mean Platelet Volume 9.7 7.6 - 12.9 fL [facility] NRBC% auto 0.0 % [facility] NRBC Absolute 0.000 0.000 - 0.000 x10(3)/mc L [facility] Blood specimen (specimen) 04/29/2020 4:17 AM EDT 04/29/2020 4:47 AM EDT Narrative Resulting Agency Comment Spec In Lab Davon Leung MD HEMATOLOGY ORDERABLE S Performing Organization Address [facility]/ZIP Co de Phone Number [facility] [place] [address] * Magnesium (04/29/2020 4:17 AM EDT) Magnesium 0.83 0.69 - 1.07 mmol/L [facility] Blood specimen (specimen) 04/29/2020 4:17 AM EDT 04/29/2020 4:47 AM EDT Narrative Resulting Agency Comment Spec In Lab Dale Dash MD CHEMISTRY ORDERABLES Performing Organization Address [facility] Co de Phone Number [facility] [place] [place] [address] * (ABNORMAL) Comprehensive metabolic panel (non-fasting) (04/29/2020 4:17 AM EDT) Glucose 152 65 - 199 mg/dL [facility] Comment:Diabetes: >=200 mg/d L plus symptoms Blood Urea Nitrogen 28(H) 8 - 18 mg/dL [facility] Comment:result rechecked-ssd Creatinine 0.96 0.70 - 1.20 mg/dL [facility] Sodium 136 135 - 145 mmol/L [facility] Potassium 3.9 3.5 - 5.0 mmol/L [facility] Comment: Please note: ??Patients with WBC >100,000 may have falsely elevated Potassium levels. ??For accurate Potassium quantification in these patients send serum separator tube (gold top) for subsequent determinations. ??Contact the Clinical Chemistry Laboratory if there are any questions. Chloride 103 98 - 107 mmol/L [facility] Carbon Dioxide 22 22 - 31 mmol/L [facility] Anion Gap 11 5 - 15 mmol/L [facility] Calcium 8.5 8.5 - 10.5 mg/dL [facility] Protein, Total 6.0(L) 6.1 - 8.0 gm/dL [facility] Albumin 2.8(L) 3.2 - 5.2 gm/dL [facility] Aspartate Aminotransferase 15 0 - 30 unit/L [facility] Alanine Aminotransferase 16 0 - 30 unit/L [facility] Alkaline Phosphatase 177(H) 35 - 105 unit/L [facility] Bilirubin, Total 0.5 0.2 - 1.3 mg/dL [facility] Est Glomerular Filtration Rate 56(L) >=60 mL/min/1. 73 m?? [facility] Comment: The eGFR was calculated using the CKD-EPI equation. As with all creatinine based estimates of kidney function, eGFR values calculated with the CKD-EPI equation are not accurate in patients with acute kidney failure, extremes of body mass or the acutely ill. [email or web address] eGFR 65 >=60 mL/min/1. 73 m?? [facility] Comment: The eGFR was calculated using the CKD-EPI equation. As with all creatinine based estimates of kidney function, eGFR values calculated with the CKD-EPI equation are not accurate in patients with acute kidney failure, extremes of body mass or the acutely ill. [email or web address] Blood specimen (specimen) 04/29/2020 4:17 AM EDT 04/29/2020 4:47 AM EDT Narrative Resulting Agency Comment Spec In Lab Dale Dash MD CHEMISTRY ORDERABLES Performing Organization Address [facility]/ZIP Co de Phone Number [facility] [place] [address] * POCT Glucose (04/29/2020 4:16 AM EDT) Glucose, POC 152 65 - 199 mg/dL [facility] Comment: Supplemental ranges: <140 mg/dL before meals <180 mg/dL all other times of the day Blood specimen (specimen) 04/29/2020 4:16 AM EDT 04/29/2020 4:16 AM EDT Dale Dash MD POINT OF CARE TEST O RDERABLES Performing Organization Address [facility] Co de Phone Number [facility] [place] [address] * POCT Glucose (04/29/2020 12:34 AM EDT) Glucose, POC 171 65 - 199 mg/dL [facility] Comment: Supplemental ranges: <140 mg/dL before meals <180 mg/dL all other times of the day Blood specimen (specimen) 04/29/2020 12:34 AM EDT 04/29/2020 12:34 AM EDT Dale Dash MD POINT OF CARE TEST O RDERABLES Performing Organization Address [facility] Co de Phone Number [facility] [place] [address] * (ABNORMAL) POCT Glucose (04/28/2020 8:36 PM EDT) Glucose, POC 205(H) 65 - 199 mg/dL [facility] Comment: Supplemental ranges: <140 mg/dL before meals <180 mg/dL all other times of the day Blood specimen (specimen) 04/28/2020 8:36 PM EDT 04/28/2020 8:36 PM EDT Dale Dash MD POINT OF CARE TEST O RDERABLES Performing Organization Address City/[facility]/ZIP Co de Phone Number [facility] [place] [address] * POCT Glucose (04/28/2020 4:05 PM EDT) Glucose, POC 185 65 - 199 mg/dL [facility] Comment: Supplemental ranges: <140 mg/dL before meals <180 mg/dL all other times of the day Blood specimen (specimen) 04/28/2020 4:05 PM EDT 04/28/2020 4:05 PM EDT Abiodun Chun MD POINT OF CARE TEST O RDROBIN Performing Organization Address [facility] Co de Phone Number [facility] [place] [address] * POCT Glucose (04/28/2020 12:47 PM EDT) Glucose, POC 135 65 - 199 mg/dL [facility] Comment: Supplemental ranges: <140 mg/dL before meals <180 mg/dL all other times of the day Blood specimen (specimen) 04/28/2020 12:47 PM EDT 04/28/2020 12:47 PM EDT Abiodun Chun MD POINT OF CARE TEST O RDERATOAN Performing Organization Address [facility] Co de Phone Number [facility] [place] [address] * POCT Glucose (04/28/2020 10:23 AM EDT) Glucose, POC 150 65 - 199 mg/dL [facility] Comment: Supplemental ranges: <140 mg/dL before meals <180 mg/dL all other times of the day Blood specimen (specimen) 04/28/2020 10:23 AM EDT 04/28/2020 10:23 AM EDT Abiodun Chun MD POINT OF CARE TEST O RDERABLES [facility] [place] [address] * CT Guided Drain Peritoneal (04/28/2020 10:20 [...] approximately 2-3 weeks (already ordered by IR). Inspector Type(s): Resident/Fellow: None. Attending: Dr. Jos Collins Procedure/Teaching [...] in approximately 2-3 weeks (alreadyordered by IR). Inspector Type(s): Resident/Fellow: None. Attending: Dr. Jos Collins Procedure/Teaching [...] EDT) Anaerobic Culture No anaerobic organisms isolated [facility] Fluid specimen (specimen) 04/28/2020 10:00 AM EDT 04/28/2020 10:50 AM EDT Comment:ARABELLA-HEPATIC ABSCESS S, CT GUIDED DRAIN PLACEMENT Narrative Resulting Agency Comment Spec In Lab Jeevan Black MD MICROBIOLOGY - [facility] AL ORDERABLES [facility] [address] [place] [address] * (ABNORMAL) Body Fluid Culture, Aerobic (04/28/2020 10:00 AM EDT) Body Fluid Culture One colony of Raoultella ornithinolytica (Klebsiella ornithinolytica)(A ) [facility] Gram Stain Few Neutrophils seen No microorganisms seen. (A) [facility] Organism Raoultella ornithinolytica (Klebsiella ornithinolytica)(A ) [facility] Fluid specimen (specimen) 04/28/2020 10:00 [...] - GENER AL ORDERABLES Performing Organization Address [facility]/ZIP Co de Phone Number [facility] [place] [address] * POCT Glucose (04/28/2020 8:10 AM EDT) [facility] Glucose, POC 134 65 - 199 mg/dL [facility] Comment: Supplemental ranges: <140 mg/dL before meals <180 mg/dL all other times of the day Blood specimen (specimen) 04/28/2020 8:10 AM EDT 04/28/2020 8:10 AM EDT Abiodun Chun MD POINT OF CARE TEST O RDERABLES Performing Organization Address [facility] Co de Phone Number [facility] [place] [address] * (ABNORMAL) pro-Brain Natriuretic Peptide (04/28/2020 4:05 AM EDT) [facility] NT-proBNP 852(H) <=450 pg/mL [facility] Blood specimen (specimen) Venous Draw / Unknown 04/28/2020 4:05 AM EDT 04/28/2020 4:25 AM EDT Narrative Resulting Agency Comment Spec In Lab Hong Levi MD CHEMISTRY ORDERABLES Performing Organization Address [facility] Co de Phone Number [facility] [place] [address] * (ABNORMAL) Differential, Automated (04/28/2020 4:05 AM EDT) Neutrophil % 71.3 % [facility] Neutrophil Absolute 10.55(H) 1.70 - 6.10 x10(3)/[facility] Lymph % 17.3 % [facility] Lymphocytes Abs 2.6 0.9 - 3.2 x10(3)/[facility] Monocyte % 5.5 % [facility] Monocyte Abs 0.8 0.3 - 0.9 x10(3)/[facility] Eos % 2.8 % [facility] Eosinophils Abs 0.4 0.0 - 0.4 x10(3)/[facility] Basophil % 0.5 % [facility] Baso Absolute 0.1 0.0 - 0.1 x10(3)/[facility] Immature Gran % 2.60 % [facility] Comment: Immature granulocytes(IG's)percentage and absolute count will include metamyelocytes, myelocytes, and promyelocytes. Blood smears from CBCs yielding IG's will be scanned manually for concordance. If this scan disagrees with the automated IG or if promyelocytes are noted, a manual differential will be performed. Immature Gran Absolute 0.39(H) 0.00 - 0.04 x10(3)/[facility] Blood specimen (specimen) 04/28/2020 4:05 AM EDT 04/28/2020 4:23 AM EDT Narrative Resulting Agency Comment Spec In Lab Hong Levi MD HEMATOLOGY ORDERABLE S [facility] [place] [address] * (ABNORMAL) Hemogram (04/28/2020 4:05 AM EDT) White Blood Cell 14.8(H) 4.0 - 9.5 x10(3)/[facility] Red Blood Cell 3.90(L) 4.00 - 5.21 x10(6)/mc L [facility] Hemoglobin 10.5(L) 11.7 - 15.5 gm/dL [facility] Hematocrit 32.5(L) 35.7 - 45.8 % [facility] Mean Cell Volume 83.3 82.6 - 94.4 fL [facility] Mean Cell Hemoglobin 26.9(L) 27.1 - 32.0 pg [facility] Mean Cell Hemoglobin Concentration 32.3 31.7 - 35.0 gm/dL [facility] Platelet 421(H) 145 - 357 x10(3)/mc L [facility] RDW Standard Deviation 44.7 37.0 - 46.0 fL [facility] RDW coefficient of variation 14.6(H) 11.5 - 14.1 % [facility] Mean Platelet Volume 9.6 7.6 - 12.9 fL [facility] NRBC% auto 0.0 % [facility] NRBC Absolute 0.000 0.000 - 0.000 x10(3)/mc L [facility] Blood specimen (specimen) 04/28/2020 4:05 AM EDT 04/28/2020 4:23 AM EDT Narrative Resulting Agency Comment Spec In Lab Hong Levi MD HEMATOLOGY ORDERABLE S Performing Organization Address [facility] Co de Phone Number [facility] [place] [address] * Magnesium (04/28/2020 4:05 AM EDT) Magnesium 0.78 0.69 - 1.07 mmol/L [facility] Blood specimen (specimen) 04/28/2020 4:05 AM EDT 04/28/2020 4:23 AM EDT Narrative Resulting Agency Comment Spec In Lab Dale Dash MD CHEMISTRY ORDERABLES Performing Organization Address City/[facility]/ZIP Co de Phone Number [facility] [place] [address] * (ABNORMAL) Comprehensive metabolic panel (non-fasting) (04/28/2020 4:05 AM EDT) Glucose 149 65 - 199 mg/dL [facility] Comment:Diabetes: >=200 mg/d L plus symptoms Blood Urea Nitrogen 16 8 - 18 mg/dL [facility] Creatinine 0.80 0.70 - 1.20 mg/dL [facility] Sodium 137 135 - 145 mmol/L [facility] Potassium 3.5 3.5 - 5.0 mmol/L [facility] Comment: Please note: ??Patients with WBC >100,000 may have falsely elevated Potassium levels. ??For accurate Potassium quantification in these patients send serum separator tube (gold top) for subsequent determinations. ??Contact the Clinical Chemistry Laboratory if there are any questions. Chloride 105 98 - 107 mmol/L [facility] Carbon Dioxide 21(L) 22 - 31 mmol/L [facility] Anion Gap 11 5 - 15 mmol/L [facility] Calcium 8.7 8.5 - 10.5 mg/dL [facility] Protein, Total 6.3 6.1 - 8.0 gm/dL [facility] Albumin 3.0(L) 3.2 - 5.2 gm/dL [facility] Aspartate Aminotransferase 12 0 - 30 unit/L [facility] Alanine Aminotransferase 12 0 - 30 unit/L [facility] Alkaline Phosphatase 201(H) 35 - 105 unit/L [facility] Bilirubin, Total 0.4 0.2 - 1.3 mg/dL [facility] Est Glomerular Filtration Rate 70 >=60 mL/min/1. 73 m?? [facility] Comment: The eGFR was calculated using the CKD-EPI equation. As with all creatinine based estimates of kidney function, eGFR values calculated with the CKD-EPI equation are not accurate in patients with acute kidney failure, extremes of body mass or the acutely ill. [email or web address] eGFR 81 >=60 mL/min/1. 73 m?? [facility] Comment: The eGFR was calculated using the CKD-EPI equation. As with all creatinine based estimates of kidney function, eGFR values calculated with the CKD-EPI equation are not accurate in patients with acute kidney failure, extremes of body mass or the acutely ill. [email or web address] Blood specimen (specimen) 04/28/2020 4:05 AM EDT 04/28/2020 4:23 AM EDT Narrative Resulting Agency Comment Spec In Lab Dale Dash MD CHEMISTRY ORDERABLES Performing Organization Address [facility] de Phone Number [facility] [place] [address] * POCT Glucose (04/28/2020 3:28 AM EDT) Glucose, POC 161 65 - 199 mg/dL [facility] Comment: Supplemental ranges: <140 mg/dL before meals <180 mg/dL all other times of the day Blood specimen (specimen) 04/28/2020 3:28 AM EDT 04/28/2020 3:28 AM EDT Abiodun Chun MD POINT OF CARE TEST O RDERABLES Performing Organization Address [facility] de Phone Number [facility] [place] [address] * (ABNORMAL) POCT Glucose (04/27/2020 11:33 PM EDT) Glucose, POC 205(H) 65 - 199 mg/dL [facility] Comment: Supplemental ranges: <140 mg/dL before meals <180 mg/dL all other times of the day Blood specimen (specimen) 04/27/2020 11:33 PM EDT 04/27/2020 11:33 PM EDT Abiodun Chun MD POINT OF CARE TEST O RDERABLES Performing Organization Address [facility] Co de Phone Number [facility] [place] [address] * (ABNORMAL) POCT Glucose (04/27/2020 8:03 PM EDT) Glucose, POC 274(H) 65 - 199 mg/dL [facility] Comment: Supplemental ranges: <140 mg/dL before meals <180 mg/dL all other times of the day Blood specimen (specimen) 04/27/2020 8:03 PM EDT 04/27/2020 8:03 PM EDT Abiodun Chun MD POINT OF CARE TEST O RDERATOAN Performing Organization Address [facility] Co de Phone Number [facility] [place] [address] * POCT Glucose (04/27/2020 4:23 PM EDT) Glucose, POC 155 65 - 199 mg/dL [facility] Comment: Supplemental ranges: <140 mg/dL before meals <180 mg/dL all other times of the day Blood specimen (specimen) 04/27/2020 4:23 PM EDT 04/27/2020 4:23 PM EDT Abiodun Chun MD POINT OF CARE TEST O ISAIAH Performing Organization Address [facility] Co de Phone Number [facility] [place] [address] * CT Abdomen & Pelvis w Contrast [...] contact the number below. ? Narrative 04/27/2020 4:29 PM EDT EXAMINATION: CT [...] administration of contrast. Administered 96.0 ml of SZESTKCEA701.00 mg/ml. Oral contrast was administered. COMPARISON: 04/18/2020 [...] Glucose, POC 192 65 - 199 mg/dL [facility] Comment: Supplemental ranges: <140 mg/dL before meals <180 mg/dL all other times of the day Blood specimen (specimen) 04/27/2020 11:59 AM EDT 04/27/2020 11:59 AM EDT Abiodun Chun MD POINT OF CARE TEST O RDERABLES [facility] [place] [address] * XR Chest One View (04/27/2020 10:47 [...] the number below. Abiodun Chun MD IMG DX ORDERABLES * POCT Glucose (04/27/2020 7:43 AM EDT) Glucose, POC 138 65 - 199 mg/dL [facility] Comment: Supplemental ranges: <140 mg/dL before meals <180 mg/dL all other times of the day Blood specimen (specimen) 04/27/2020 7:43 AM EDT 04/27/2020 7:43 AM EDT Abiodun Chun MD POINT OF CARE TEST O RDERABLES [facility] [place] [address] * (ABNORMAL) Differential, Automated (04/27/2020 4:41 AM EDT) Pathologist [facility] Neutrophil % 70.7 % [facility] Neutrophil Absolute 10.64(H) 1.70 - 6.10 x10(3)/mc L [facility] Lymph % 14.9 % [facility] Lymphocytes Abs 2.2 0.9 - 3.2 x10(3)/mc L [facility] Monocyte % 6.2 % [facility] Monocyte Abs 0.9 0.3 - 0.9 x10(3)/mc L [facility] Eos % 3.3 % [facility] Eosinophils Abs 0.5(H) 0.0 - 0.4 x10(3)/mc L [facility] Basophil % 0.5 % [facility] Baso Absolute 0.1 0.0 - 0.1 x10(3)/mc L [facility] Immature Gran % 4.40 % [facility] Comment: Immature granulocytes(IG's)percentage and absolute count will include metamyelocytes, myelocytes, and promyelocytes. Blood smears from CBCs yielding IG's will be scanned manually for concordance. If this scan disagrees with the automated IG or if promyelocytes are noted, a manual differential will be performed. Immature Gran Absolute 0.67(H) 0.00 - 0.04 x10(3)/ L [facility] Blood specimen (specimen) 04/27/2020 4:41 AM EDT 04/27/2020 4:54 AM EDT Narrative Resulting Agency Comment Spec In Lab Hong Levi MD HEMATOLOGY ORDERABLE S [facility] [place] [address] * (ABNORMAL) Hemogram (04/27/2020 4:41 AM EDT) White Blood Cell 15.1(H) 4.0 - 9.5 x10(3)/mc L [facility] Red Blood Cell 3.83(L) 4.00 - 5.21 x10(6)/ L [facility] Hemoglobin 10.3(L) 11.7 - 15.5 gm/dL [facility] Hematocrit 32.1(L) 35.7 - 45.8 % [facility] Mean Cell Volume 83.8 82.6 - 94.4 fL [facility] Mean Cell Hemoglobin 26.9(L) 27.1 - 32.0 pg [facility] Mean Cell Hemoglobin Concentration 32.1 31.7 - 35.0 gm/dL [facility] Platelet 422(H) 145 - 357 x10(3)/mc L [facility] RDW Standard Deviation 44.9 37.0 - 46.0 fL [facility] RDW coefficient of variation 14.8(H) 11.5 - 14.1 % [facility] Mean Platelet Volume 9.6 7.6 - 12.9 fL [facility] NRBC% auto 0.1 % [facility] NRBC Absolute 0.020(H) 0.000 - 0.000 x10(3)/mc L [facility] Blood specimen (specimen) 04/27/2020 4:41 AM EDT 04/27/2020 4:54 AM EDT Narrative Resulting Agency Comment Spec In Lab Hong Levi MD HEMATOLOGY ORDERABLE S Performing Organization Address [facility] Co de Phone Number [facility] [place] [address] * Magnesium (04/27/2020 4:41 AM EDT) Magnesium 0.76 0.69 - 1.07 mmol/L [facility] Blood specimen (specimen) 04/27/2020 4:41 AM EDT 04/27/2020 4:54 AM EDT Narrative Resulting Agency Comment Spec In Lab Dale Dash MD CHEMISTRY ORDERABLES Performing Organization Address [facility] Co de Phone Number [facility] [address] * (ABNORMAL) Comprehensive metabolic panel (non-fasting) (04/27/2020 4:41 AM EDT) Glucose 167 65 - 199 mg/dL [facility] Comment:Diabetes: >=200 mg/d L plus symptoms Blood Urea Nitrogen 12 8 - 18 mg/dL [facility] Creatinine 0.63(L) 0.70 - 1.20 mg/dL [facility] Sodium 138 135 - 145 mmol/L [facility] Potassium 3.5 3.5 - 5.0 mmol/L [facility] Comment: Please note: ??Patients with WBC >100,000 may have falsely elevated Potassium levels. ??For accurate Potassium quantification in these patients send serum separator tube (gold top) for subsequent determinations. ??Contact the Clinical Chemistry Laboratory if there are any questions. Chloride 103 98 - 107 mmol/L [facility] Carbon Dioxide 23 22 - 31 mmol/L [facility] Anion Gap 12 5 - 15 mmol/L [facility] Calcium 8.7 8.5 - 10.5 mg/dL [facility] Protein, Total 6.2 6.1 - 8.0 gm/dL [facility] Albumin 2.9(L) 3.2 - 5.2 gm/dL [facility] Aspartate Aminotransferase 12 0 - 30 unit/L [facility] Alanine Aminotransferase 13 0 - 30 unit/L [facility] Alkaline Phosphatase 230(H) 35 - 105 unit/L [facility] Bilirubin, Total 0.5 0.2 - 1.3 mg/dL [facility] Est Glomerular Filtration Rate 85 >=60 mL/min/1. 73 m?? [facility] Comment: The eGFR was calculated using the CKD-EPI equation. As with all creatinine based estimates of kidney function, eGFR values calculated with the CKD-EPI equation are not accurate in patients with acute kidney failure, extremes of body mass or the acutely ill. [email or web address] eGFR 99 >=60 mL/min/1. 73 m?? [facility] Comment: The eGFR was calculated using the CKD-EPI equation. As with all creatinine based estimates of kidney function, eGFR values calculated with the CKD-EPI equation are not accurate in patients with acute kidney failure, extremes of body mass or the acutely ill. [email or web address] Blood specimen (specimen) 04/27/2020 4:41 AM EDT 04/27/2020 4:54 AM EDT Narrative Resulting Agency Comment Spec In Lab Dale Dash MD CHEMISTRY ORDERABLES [facility] [place] [address] * POCT Glucose (04/27/2020 4:12 AM EDT) Glucose, POC 170 65 - 199 mg/dL [facility] Comment: Supplemental ranges: <140 mg/dL before meals <180 mg/dL all other times of the day Blood specimen (specimen) 04/27/2020 4:12 AM EDT 04/27/2020 4:12 AM EDT Abiodun Chun MD POINT OF CARE TEST O RDERATOAN [facility] [place] [address] * POCT Glucose (04/27/2020 12:14 AM EDT) Glucose, POC 187 65 - 199 mg/dL [facility] Comment: Supplemental ranges: <140 mg/dL before meals <180 mg/dL all other times of the day Blood specimen (specimen) 04/27/2020 12:14 AM EDT 04/27/2020 12:14 AM EDT Abiodun Chun MD POINT OF CARE TEST O POOLERATOAN Performing Organization Address [facility]/ZIP Co de Phone Number [facility] [place] [address] * POCT Glucose (04/26/2020 8:19 PM EDT) Glucose, POC 186 65 - 199 mg/dL [facility] Comment: Supplemental ranges: <140 mg/dL before meals <180 mg/dL all other times of the day Blood specimen (specimen) 04/26/2020 8:19 PM EDT 04/26/2020 8:19 PM EDT Abiodun Chun MD POINT OF CARE TEST O RDERATOAN Performing Organization Address City/[facility]/ZIP Co de Phone Number [facility] [place] [address] * POCT Glucose (04/26/2020 4:52 PM EDT) Glucose, POC 162 65 - 199 mg/dL [facility] Comment: Supplemental ranges: <140 mg/dL before meals <180 mg/dL all other times of the day Blood specimen (specimen) 04/26/2020 4:52 PM EDT 04/26/2020 4:52 PM EDT Abiodun Chun MD POINT OF CARE TEST O ISAIAH Performing Organization Address [facility] de Phone Number [facility] [place] [address] * (ABNORMAL) POCT Glucose (04/26/2020 11:50 AM EDT) Glucose, POC 215(H) 65 - 199 mg/dL [facility] Comment: Supplemental ranges: <140 mg/dL before meals <180 mg/dL all other times of the day Blood specimen (specimen) 04/26/2020 11:50 AM EDT 04/26/2020 11:50 AM EDT Abiodun Chun MD POINT OF CARE TEST Gage COLON Performing Organization Address [facility] de Phone Number [facility] [place] [address] * POCT Glucose (04/26/2020 7:43 AM EDT) Glucose, POC 175 65 - 199 mg/dL [facility] Comment: Supplemental ranges: <140 mg/dL before meals <180 mg/dL all other times of the day Blood specimen (specimen) 04/26/2020 7:43 AM EDT 04/26/2020 7:43 AM EDT Abiodun Chun MD POINT OF CARE TEST O RDERATOAN Performing Organization Address [facility] Co de Phone Number [facility] [place] [address] * POCT Glucose (04/26/2020 5:07 AM EDT) Glucose, POC 163 65 - 199 mg/dL [facility] Comment: Supplemental ranges: <140 mg/dL before meals <180 mg/dL all other times of the day Blood specimen (specimen) 04/26/2020 5:07 AM EDT 04/26/2020 5:07 AM EDT Abiodun Chun MD POINT OF CARE TEST O RDERABLES [facility] [place] [address] * (ABNORMAL) Differential, Automated (04/26/2020 4:42 AM EDT) Neutrophil % 66.7 % [facility] Neutrophil Absolute 9.28(H) 1.70 - 6.10 x10(3)/mc L [facility] Lymph % 16.8 % [facility] Lymphocytes Abs 2.3 0.9 - 3.2 x10(3)/mc L [facility] Monocyte % 5.7 % [facility] Monocyte Abs 0.8 0.3 - 0.9 x10(3)/mc L [facility] Eos % 3.7 % [facility] Eosinophils Abs 0.5(H) 0.0 - 0.4 x10(3)/mc L [facility] Basophil % 0.8 % [facility] Baso Absolute 0.1 0.0 - 0.1 x10(3)/mc L [facility] Immature Gran % 6.30 % [facility] Comment: Immature granulocytes(IG's)percentage and absolute count will include metamyelocytes, myelocytes, and promyelocytes. Blood smears from CBCs yielding IG's will be scanned manually for concordance. If this scan disagrees with the automated IG or if promyelocytes are noted, a manual differential will be performed. Immature Gran Absolute 0.88(H) 0.00 - 0.04 x10(3)/mc L [facility] Blood specimen (specimen) 04/26/2020 4:42 AM EDT 04/26/2020 4:54 AM EDT Narrative Resulting Agency Comment Spec In Lab Hong Levi MD HEMATOLOGY ORDERABLE S [facility] [place] [address] * (ABNORMAL) Hemogram (04/26/2020 4:42 AM EDT) White Blood Cell 13.9(H) 4.0 - 9.5 x10(3)/mc L [facility] Red Blood Cell 3.72(L) 4.00 - 5.21 x10(6)/mc L [facility] Hemoglobin 10.0(L) 11.7 - 15.5 gm/dL [facility] Hematocrit 31.5(L) 35.7 - 45.8 % [facility] Mean Cell Volume 84.7 82.6 - 94.4 fL [facility] Mean Cell Hemoglobin 26.9(L) 27.1 - 32.0 pg [facility] Mean Cell Hemoglobin Concentration 31.7 31.7 - 35.0 gm/dL [facility] Platelet 398(H) 145 - 357 x10(3)/mc L [facility] RDW Standard Deviation 46.0 37.0 - 46.0 fL [facility] RDW coefficient of variation 14.9(H) 11.5 - 14.1 % [facility] Mean Platelet Volume 9.2 7.6 - 12.9 fL [facility] NRBC% auto 0.2 % [facility] NRBC Absolute 0.030(H) 0.000 - 0.000 x10(3)/mc L [facility] Blood specimen (specimen) 04/26/2020 4:42 AM EDT 04/26/2020 4:54 AM EDT Narrative Resulting Agency Comment Spec In Lab Hong Levi MD HEMATOLOGY ORDERABLE S [facility] [place] [address] * Magnesium (04/26/2020 4:42 AM EDT) Magnesium 0.86 0.69 - 1.07 mmol/L [facility] Blood specimen (specimen) 04/26/2020 4:42 AM EDT 04/26/2020 4:54 AM EDT Narrative Resulting Agency Comment Spec In Lab Dale Dash MD CHEMISTRY ORDERABLES Performing Organization Address City/State/[facility] Co de Phone Number [facility] [place] [address] * (ABNORMAL) Comprehensive metabolic panel (non-fasting) (04/26/2020 4:42 AM EDT) Glucose 172 65 - 199 mg/dL [facility] Comment:Diabetes: >=200 mg/d L plus symptoms Blood Urea Nitrogen 14 8 - 18 mg/dL [facility] Creatinine 0.67(L) 0.70 - 1.20 mg/dL [facility] Sodium 142 135 - 145 mmol/L [facility] Potassium 3.3(L) 3.5 - 5.0 mmol/L [facility] Comment: Please note: ??Patients with WBC >100,000 may have falsely elevated Potassium levels. ??For accurate Potassium quantification in these patients send serum separator tube (gold top) for subsequent determinations. ??Contact the Clinical Chemistry Laboratory if there are any questions. Chloride 107 98 - 107 mmol/L [facility] Carbon Dioxide 22 22 - 31 mmol/L [facility] Anion Gap 13 5 - 15 mmol/L [facility] Calcium 8.6 8.5 - 10.5 mg/dL [facility] Protein, Total 6.3 6.1 - 8.0 gm/dL [facility] Albumin 2.8(L) 3.2 - 5.2 gm/dL [facility] Aspartate Aminotransferase 14 0 - 30 unit/L [facility] Alanine Aminotransferase 14 0 - 30 unit/L [facility] Alkaline Phosphatase 253(H) 35 - 105 unit/L [facility] Bilirubin, Total 0.4 0.2 - 1.3 mg/dL [facility] Est Glomerular Filtration Rate 84 >=60 mL/min/1. 73 m?? [facility] Comment: The eGFR was calculated using the CKD-EPI equation. As with all creatinine based estimates of kidney function, eGFR values calculated with the CKD-EPI equation are not accurate in patients with acute kidney failure, extremes of body mass or the acutely ill. [email or web address] eGFR 97 >=60 mL/min/1. 73 m?? [facility] Comment: The eGFR was calculated using the CKD-EPI equation. As with all creatinine based estimates of kidney function, eGFR values calculated with the CKD-EPI equation are not accurate in patients with acute kidney failure, extremes of body mass or the acutely ill. [email or web address] Blood specimen (specimen) 04/26/2020 4:42 AM EDT 04/26/2020 4:54 AM EDT Narrative Resulting Agency Comment Spec In Lab Dale Dash MD CHEMISTRY ORDERABLES Performing Organization Address City/[facility]/ZIP Co de Phone Number [facility] [place] [address] * (ABNORMAL) POCT Glucose (04/25/2020 10:39 PM EDT) Glucose, POC 215(H) 65 - 199 mg/dL [facility] Comment: Supplemental ranges: <140 mg/dL before meals <180 mg/dL all other times of the day Blood specimen (specimen) 04/25/2020 10:39 PM EDT 04/25/2020 10:39 PM EDT Abiodun Chun MD POINT OF CARE TEST O RDERABLES Performing Organization Address City/[facility]/ZIP Co de Phone Number [facility] [place] [address] * POCT Glucose (04/25/2020 8:54 PM EDT) Glucose, POC 175 65 - 199 mg/dL [facility] Comment: Supplemental ranges: <140 mg/dL before meals <180 mg/dL all other times of the day Blood specimen (specimen) 04/25/2020 8:54 PM EDT 04/25/2020 8:54 PM EDT Abiodun Chun MD POINT OF CARE TEST O RDERATOAN [facility] [place] [address] * POCT Glucose (04/25/2020 7:43 PM EDT) Glucose, POC 198 65 - 199 mg/dL [facility] Comment: Supplemental ranges: <140 mg/dL before meals <180 mg/dL all other times of the day Blood specimen (specimen) 04/25/2020 7:43 PM EDT 04/25/2020 7:43 PM EDT Abiodun Chun MD POINT OF CARE TEST O ISAIAH Performing Organization Address [facility] Co de Phone Number [facility] [place] [address] * POCT Glucose (04/25/2020 5:35 PM EDT) Glucose, POC 188 65 - 199 mg/dL [facility] Comment: Supplemental ranges: <140 mg/dL before meals <180 mg/dL all other times of the day Blood specimen (specimen) 04/25/2020 5:35 PM EDT 04/25/2020 5:35 PM EDT Abiodun Chun MD POINT OF CARE TEST O RDERABLES [facility] [place] [address] * POCT Glucose (04/25/2020 12:21 PM EDT) Glucose, POC 199 65 - 199 mg/dL [facility] Comment: Supplemental ranges: <140 mg/dL before meals <180 mg/dL all other times of the day Blood specimen (specimen) 04/25/2020 12:21 PM EDT 04/25/2020 12:21 PM EDT Abiodun Chun MD POINT OF CARE TEST O RDERATOAN Performing Organization Address City/[facility]/ZIP Co de Phone Number [facility] [place] [address] * POCT Glucose (04/25/2020 7:37 AM EDT) Glucose, POC 147 65 - 199 mg/dL [facility] Comment: Supplemental ranges: <140 mg/dL before meals <180 mg/dL all other times of the day Blood specimen (specimen) 04/25/2020 7:37 AM EDT 04/25/2020 7:37 AM EDT Abiodun Chun MD POINT OF CARE TEST O ISAIAH Performing Organization Address City/[facility]/ZIP Co de Phone Number [facility] [place] [address] * (ABNORMAL) Differential, Automated (04/25/2020 5:05 AM EDT) Neutrophil % 63.5 % [facility] Neutrophil Absolute 8.95(H) 1.70 - 6.10 x10(3)/mc L [facility] Lymph % 18.9 % [facility] Lymphocytes Abs 2.7 0.9 - 3.2 x10(3)/mc L [facility] Monocyte % 6.8 % [facility] Monocyte Abs 1.0(H) 0.3 - 0.9 x10(3)/mc L [facility] Eos % 3.3 % [facility] Eosinophils Abs 0.5(H) 0.0 - 0.4 x10(3)/mc L [facility] Basophil % 0.9 % [facility] Baso Absolute 0.1 0.0 - 0.1 x10(3)/[facility] Immature Gran % 6.60 % [facility] Comment: Immature granulocytes(IG's)percentage and absolute count will include metamyelocytes, myelocytes, and promyelocytes. Blood smears from CBCs yielding IG's will be scanned manually for concordance. If this scan disagrees with the automated IG or if promyelocytes are noted, a manual differential will be performed. Immature Gran Absolute 0.93(H) 0.00 - 0.04 x10(3)/[facility] Blood specimen (specimen) 04/25/2020 5:05 AM EDT 04/25/2020 5:20 AM EDT Narrative Resulting Agency Comment Spec In Lab Hong Levi MD HEMATOLOGY ORDERABLE S Performing Organization Address City/State/[facility] Co de Phone Number [facility] [place] [address] * (ABNORMAL) Hemogram (04/25/2020 5:05 AM EDT) White Blood Cell 14.1(H) 4.0 - 9.5 x10(3)/[facility] Red Blood Cell 3.67(L) 4.00 - 5.21 x10(6)/[facility] Hemoglobin 10.0(L) 11.7 - 15.5 gm/dL [facility] Hematocrit 30.9(L) 35.7 - 45.8 % [facility] Mean Cell Volume 84.2 82.6 - 94.4 fL [facility] Mean Cell Hemoglobin 27.2 27.1 - 32.0 pg [facility] Mean Cell Hemoglobin Concentration 32.4 31.7 - 35.0 gm/dL [facility] Platelet 396(H) 145 - 357 x10(3)/[facility] RDW Standard Deviation 45.8 37.0 - 46.0 fL [facility] RDW coefficient of variation 15.0(H) 11.5 - 14.1 % [facility] Mean Platelet Volume 9.5 7.6 - 12.9 fL [facility] NRBC% auto 0.1 % [facility] NRBC Absolute 0.020(H) 0.000 - 0.000 x10(3)/mc L [facility] Blood specimen (specimen) 04/25/2020 5:05 AM EDT 04/25/2020 5:20 AM EDT Narrative Resulting Agency Comment Spec In Lab Hong Levi MD HEMATOLOGY ORDERABLE S Performing Organization Address [facility]/ZIP Co de Phone Number [facility] [place] [address] * Magnesium (04/25/2020 5:05 AM EDT) Magnesium 0.79 0.69 - 1.07 mmol/L [facility] Blood specimen (specimen) 04/25/2020 5:05 AM EDT 04/25/2020 5:19 AM EDT Narrative Resulting Agency Comment Spec In Lab Dale Dash MD CHEMISTRY ORDERABLES Performing Organization Address [facility] Co de Phone Number [facility] [place] [address] * (ABNORMAL) Comprehensive metabolic panel (non-fasting) (04/25/2020 5:05 AM EDT) Glucose 138 65 - 199 mg/dL [facility] Comment:Diabetes: >=200 mg/d L plus symptoms Blood Urea Nitrogen 16 8 - 18 mg/dL [facility] Creatinine 0.69(L) 0.70 - 1.20 mg/dL [facility] Sodium 142 135 - 145 mmol/L [facility] Potassium 3.1(L) 3.5 - 5.0 mmol/L [facility] Comment: Please note: ??Patients with WBC >100,000 may have falsely elevated Potassium levels. ??For accurate Potassium quantification in these patients send serum separator tube (gold top) for subsequent determinations. ??Contact the Clinical Chemistry Laboratory if there are any questions. Chloride 108(H) 98 - 107 mmol/L [facility] Carbon Dioxide 22 22 - 31 mmol/L [facility] Anion Gap 12 5 - 15 mmol/L [facility] Calcium 8.7 8.5 - 10.5 mg/dL [facility] Protein, Total 6.1 6.1 - 8.0 gm/dL [facility] Albumin 2.6(L) 3.2 - 5.2 gm/dL [facility] Aspartate Aminotransferase 15 0 - 30 unit/L [facility] Alanine Aminotransferase 15 0 - 30 unit/L [facility] Alkaline Phosphatase 239(H) 35 - 105 unit/L [facility] Bilirubin, Total 0.4 0.2 - 1.3 mg/dL [facility] Est Glomerular Filtration Rate 83 >=60 mL/min/1. 73 m?? [facility] Comment: The eGFR was calculated using the CKD-EPI equation. As with all creatinine based estimates of kidney function, eGFR values calculated with the CKD-EPI equation are not accurate in patients with acute kidney failure, extremes of body mass or the acutely ill. [email or web address] eGFR 96 >=60 mL/min/1. 73 m?? [facility] Comment: The eGFR was calculated using the CKD-EPI equation. As with all creatinine based estimates of kidney function, eGFR values calculated with the CKD-EPI equation are not accurate in patients with acute kidney failure, extremes of body mass or the acutely ill. [email or web address] Blood specimen (specimen) 04/25/2020 5:05 AM EDT 04/25/2020 5:19 AM EDT Narrative Resulting Agency Comment Spec In Lab Dale Dash MD CHEMISTRY ORDERABLES Performing Organization Address [facility] Co de Phone Number [facility] [place] [address] * POCT Glucose (04/25/2020 4:06 AM EDT) Glucose, POC 135 65 - 199 mg/dL [facility] Comment: Supplemental ranges: <140 mg/dL before meals <180 mg/dL all other times of the day Blood specimen (specimen) 04/25/2020 4:06 AM EDT 04/25/2020 4:06 AM EDT Abiodun Chun MD POINT OF CARE TEST O RDERABLES Performing Organization Address [facility] Co de Phone Number [facility] [place] [address] * (ABNORMAL) POCT Glucose (04/24/2020 11:19 PM EDT) Glucose, POC 203(H) 65 - 199 mg/dL [facility] Comment: Supplemental ranges: <140 mg/dL before meals <180 mg/dL all other times of the day Blood specimen (specimen) 04/24/2020 11:19 PM EDT 04/24/2020 11:19 PM EDT Abiodun Chun MD POINT OF CARE TEST O RDERABLES Performing Organization Address [facility] Co de Phone Number [facility] [place] [address] * (ABNORMAL) POCT Glucose (04/24/2020 8:16 PM EDT) Glucose, POC 241(H) 65 - 199 mg/dL [facility] Comment: Supplemental ranges: <140 mg/dL before meals <180 mg/dL all other times of the day Blood specimen (specimen) 04/24/2020 8:16 PM EDT 04/24/2020 8:16 PM EDT Abiodun Chun MD POINT OF CARE TEST O RDERABLES Performing Organization Address [facility] Co de Phone Number [facility] [place] [address] * (ABNORMAL) POCT Glucose (04/24/2020 5:08 PM EDT) Glucose, POC 230(H) 65 - 199 mg/dL [facility] Comment: Supplemental ranges: <140 mg/dL before meals <180 mg/dL all other times of the day Blood specimen (specimen) 04/24/2020 5:08 PM EDT 04/24/2020 5:08 PM EDT Abiodun Chun MD POINT OF CARE TEST O RDERATOAN Performing Organization Address [facility] de Phone Number [facility] [place] [address] * (ABNORMAL) POCT Glucose (04/24/2020 11:48 AM EDT) Glucose, POC 223(H) 65 - 199 mg/dL [facility] Comment: Supplemental ranges: <140 mg/dL before meals <180 mg/dL all other times of the day Blood specimen (specimen) 04/24/2020 11:48 AM EDT 04/24/2020 11:48 AM EDT Abiodun Chun MD POINT OF CARE TEST O RDERATOAN Performing Organization Address [facility] Co de Phone Number [facility] [place] [address] * POCT Glucose (04/24/2020 7:33 AM EDT) Glucose, POC 179 65 - 199 mg/dL [facility] Comment: Supplemental ranges: <140 mg/dL before meals <180 mg/dL all other times of the day Blood specimen (specimen) 04/24/2020 7:33 AM EDT 04/24/2020 7:33 AM EDT Abiodun Chun MD POINT OF CARE TEST O RDERABLES Performing Organization Address City/[facility]/ZIP Co de Phone Number [facility] [place] [address] * Scan, Peripheral Blood (04/24/2020 4:58 AM EDT) [facility] Plat estimate Increased [facility] RBC Morphology Abnormal [facility] Microcy[facility] 1-5 /HPF [facility] Hypochromia Slight [facility] Platelet Clumps Present [facility] Blood specimen (specimen) 04/24/2020 4:58 AM EDT 04/24/2020 5:16 AM EDT Narrative Resulting Agency Comment Spec In Lab Hong Levi MD HEMATOLOGY ORDERABLE S Performing Organization Address [facility] Co de Phone Number [facility] [place] [address] * (ABNORMAL) Differential, Automated (04/24/2020 4:58 AM EDT) [facility] Neutrophil % 64.5 % [facility] Neutrophil Absolute 7.89(H) 1.70 - 6.10 x10(3)/mc L [facility] Lymph % 18.2 % [facility] Lymphocytes Abs 2.2 0.9 - 3.2 x10(3)/mc L [facility] Monocyte % 8.3 % [facility] Monocyte Abs 1.0(H) 0.3 - 0.9 x10(3)/mc L [facility] Eos % 2.9 % [facility] Eosinophils Abs 0.4 0.0 - 0.4 x10(3)/mc L [facility] Basophil % 0.9 % [facility] Baso Absolute 0.1 0.0 - 0.1 x10(3)/mc L [facility] Immature Gran % 5.20 % [facility] Comment: Immature granulocytes(IG's)percentage and absolute count will include metamyelocytes, myelocytes, and promyelocytes. Blood smears from CBCs yielding IG's will be scanned manually for concordance. If this scan disagrees with the automated IG or if promyelocytes are noted, a manual differential will be performed. Immature Gran Absolute 0.64(H) 0.00 - 0.04 x10(3)/mc L [facility] Blood specimen (specimen) 04/24/2020 4:58 AM EDT 04/24/2020 5:16 AM EDT Narrative Resulting Agency Comment Spec In Lab Hong Levi MD HEMATOLOGY ORDERABLE S [facility] [place] [address] * (ABNORMAL) Hemogram (04/24/2020 4:58 AM EDT) White Blood Cell 12.2(H) 4.0 - 9.5 x10(3)/mc L [facility] Red Blood Cell 3.71(L) 4.00 - 5.21 x10(6)/mc L [facility] Hemoglobin 10.1(L) 11.7 - 15.5 gm/dL [facility] Hematocrit 31.2(L) 35.7 - 45.8 % [facility] Mean Cell Volume 84.1 82.6 - 94.4 fL [facility] Mean Cell Hemoglobin 27.2 27.1 - 32.0 pg [facility] Mean Cell Hemoglobin Concentration 32.4 31.7 - 35.0 gm/dL [facility] Platelet 375(H) 145 - 357 x10(3)/mc L [facility] RDW Standard Deviation 46.6(H) 37.0 - 46.0 fL [facility] RDW coefficient of variation 15.2(H) 11.5 - 14.1 % [facility] Mean Platelet Volume 9.7 7.6 - 12.9 fL [facility] NRBC% auto 0.0 % [facility] NRBC Absolute 0.000 0.000 - 0.000 x10(3)/mc L [facility] Blood specimen (specimen) 04/24/2020 4:58 AM EDT 04/24/2020 5:16 AM EDT Narrative Resulting Agency Comment Spec In Lab Hong Levi MD HEMATOLOGY ORDERABLE S Performing Organization Address [facility] Co de Phone Number [facility] [place] [address] * Magnesium (04/24/2020 4:58 AM EDT) Magnesium 0.87 0.69 - 1.07 mmol/L [facility] Blood specimen (specimen) 04/24/2020 4:58 AM EDT 04/24/2020 5:16 AM EDT Narrative Resulting Agency Comment Spec In Lab Dale Dash MD CHEMISTRY ORDERABLES Performing Organization Address [facility] Co de Phone Number [facility] [place] [address] * (ABNORMAL) Comprehensive metabolic panel (non-fasting) (04/24/2020 4:58 AM EDT) Glucose 188 65 - 199 mg/dL [facility] Comment:Diabetes: >=200 mg/d L plus symptoms Blood Urea Nitrogen 25(H) 8 - 18 mg/dL [facility] Creatinine 0.74 0.70 - 1.20 mg/dL [facility] Sodium 143 135 - 145 mmol/L [facility] Potassium 3.3(L) 3.5 - 5.0 mmol/L [facility] Comment: Please note: ??Patients with WBC >100,000 may have falsely elevated Potassium levels. ??For accurate Potassium quantification in these patients send serum separator tube (gold top) for subsequent determinations. ??Contact the Clinical Chemistry Laboratory if there are any questions. Chloride 108(H) 98 - 107 mmol/L [facility] Carbon Dioxide 22 22 - 31 mmol/L [facility] Anion Gap 13 5 - 15 mmol/L [facility] Calcium 8.7 8.5 - 10.5 mg/dL [facility] Protein, Total 6.4 6.1 - 8.0 gm/dL [facility] Albumin 2.8(L) 3.2 - 5.2 gm/dL [facility] Aspartate Aminotransferase 14 0 - 30 unit/L [facility] Alanine Aminotransferase 16 0 - 30 unit/L [facility] Alkaline Phosphatase 243(H) 35 - 105 unit/L [facility] Bilirubin, Total 0.4 0.2 - 1.3 mg/dL [facility] Est Glomerular Filtration Rate 77 >=60 mL/min/1. 73 m?? [facility] Comment: The eGFR was calculated using the CKD-EPI equation. As with all creatinine based estimates of kidney function, eGFR values calculated with the CKD-EPI equation are not accurate in patients with acute kidney failure, extremes of body mass or the acutely ill. [email or web address] eGFR 89 >=60 mL/min/1. 73 m?? [facility] Comment: The eGFR was calculated using the CKD-EPI equation. As with all creatinine based estimates of kidney function, eGFR values calculated with the CKD-EPI equation are not accurate in patients with acute kidney failure, extremes of body mass or the acutely ill. [email or web address] Blood specimen (specimen) 04/24/2020 4:58 AM EDT 04/24/2020 5:16 AM EDT Narrative Resulting Agency Comment Spec In Lab Dale Dash MD CHEMISTRY ORDERABLES [facility] [place] [address] * POCT Glucose (04/24/2020 4:06 AM EDT) Glucose, POC 191 65 - 199 mg/dL [facility] Comment: Supplemental ranges: <140 mg/dL before meals <180 mg/dL all other times of the day Blood specimen (specimen) 04/24/2020 4:06 AM EDT 04/24/2020 4:06 AM EDT Abiodun Chun MD POINT OF CARE TEST O RDERABLES Performing Organization Address City/[facility] Co de Phone Number [facility] [place] [address] * POCT Glucose (04/23/2020 11:44 PM EDT) Glucose, POC 193 65 - 199 mg/dL [facility] Comment: Supplemental ranges: <140 mg/dL before meals <180 mg/dL all other times of the day Blood specimen (specimen) 04/23/2020 11:44 PM EDT 04/23/2020 11:44 PM EDT Abiodun Chun MD POINT OF CARE TEST O RDERATOAN Performing Organization Address [facility] Co de Phone Number [facility] [place] [address] * POCT Glucose (04/23/2020 8:02 PM EDT) Glucose, POC 177 65 - 199 mg/dL [facility] Comment: Supplemental ranges: <140 mg/dL before meals <180 mg/dL all other times of the day Blood specimen (specimen) 04/23/2020 8:02 PM EDT 04/23/2020 8:02 PM EDT Abiodun Chun MD POINT OF CARE TEST O RDERABLES Performing Organization Address City/[facility] Co de Phone Number [facility] [place] [address] * (ABNORMAL) POCT Glucose (04/23/2020 4:15 PM EDT) Glucose, POC 204(H) 65 - 199 mg/dL [facility] Comment: Supplemental ranges: <140 mg/dL before meals <180 mg/dL all other times of the day Blood specimen (specimen) 04/23/2020 4:15 PM EDT 04/23/2020 4:15 PM EDT Abiodun Chun MD POINT OF CARE TEST O RDERABLES Performing Organization Address [facility] de Phone Number [facility] [place] [address] * Potassium (04/23/2020 1:40 PM EDT) Potassium 3.7 3.5 - 5.0 mmol/L [facility] [...] Chun MD CHEMISTRY ORDERABLES Performing Organization Address [facility] de Phone Number [facility] [place] [address] * (ABNORMAL) POCT Glucose (04/23/2020 11:35 AM EDT) Glucose, POC 202(H) 65 - 199 mg/dL [facility] Comment: Supplemental ranges: <140 mg/dL before meals <180 mg/dL all other times of the day Blood specimen (specimen) 04/23/2020 11:35 AM EDT 04/23/2020 11:35 AM EDT Abiodun Chun MD POINT OF CARE TEST O RDERABLES Performing Organization Address [facility] Co de Phone Number [facility] [place] [address] * POCT Glucose (04/23/2020 7:27 AM EDT) Glucose, POC 115 65 - 199 mg/dL [facility] Comment: Supplemental ranges: <140 mg/dL before meals <180 mg/dL all other times of the day Blood specimen (specimen) 04/23/2020 7:27 AM EDT 04/23/2020 7:27 AM EDT Hong Rosenthal MD POINT OF CARE TEST Gage COLON Performing Organization Address City/[facility]/ZIP Co de Phone Number [facility] [place] [address] * POCT Glucose (04/23/2020 4:03 AM EDT) Glucose, POC 137 65 - 199 mg/dL [facility] Comment: Supplemental ranges: <140 mg/dL before meals <180 mg/dL all other times of the day Blood specimen (specimen) 04/23/2020 4:03 AM EDT 04/23/2020 4:03 AM EDT Hong Rosenhtal MD POINT OF CARE TEST Gage COLON Performing Organization Address [facility] Co de Phone Number [facility] [place] [address] * Scan, Peripheral Blood (04/23/2020 2:25 AM EDT) Plat estimate Increased [facility] RBC Morphology Abnormal [facility] Microcyte 1-5 /HPF [facility] Hypochromia Slight [facility] Blood specimen (specimen) 04/23/2020 2:25 AM EDT 04/23/2020 2:57 AM EDT Narrative Resulting Agency Comment Spec In Lab Tiesha Morgan MD HEMATOLOGY ORDERABLE S Performing Organization Address City/[facility]/ZIP Co de Phone Number [facility] [place] [address] * (ABNORMAL) Differential, Automated (04/23/2020 2:25 AM EDT) Neutrophil % 72.2 % [facility] Neutrophil Absolute 7.20(H) 1.70 - 6.10 x10(3)/[facility] Lymph % 17.0 % [facility] Lymphocytes Abs 1.7 0.9 - 3.2 x10(3)/[facility] Monocyte % 7.5 % [facility] Monocyte Abs 0.8 0.3 - 0.9 x10(3)/[facility] Eos % 1.9 % [facility] Eosinophils Abs 0.2 0.0 - 0.4 x10(3)/[facility] Basophil % 0.5 % [facility] Baso Absolute 0.0 0.0 - 0.1 x10(3)/[facility] Immature Gran % 0.90 % [facility] Comment: Immature granulocytes(IG's)percentage and absolute count will include metamyelocytes, myelocytes, and promyelocytes. Blood smears from CBCs yielding IG's will be scanned manually for concordance. If this scan disagrees with the automated IG or if promyelocytes are noted, a manual differential will be performed. Immature Gran Absolute 0.09(H) 0.00 - 0.04 x10(3)/[facility] Blood specimen (specimen) 04/23/2020 2:25 AM EDT 04/23/2020 2:57 AM EDT Narrative Resulting Agency Comment Spec In Lab Tiesha Morgan MD HEMATOLOGY ORDERABLE S [facility] [place] [address] * (ABNORMAL) Hemogram (04/23/2020 2:25 AM EDT) White Blood Cell 10.0(H) 4.0 - 9.5 x10(3)/[facility] Red Blood Cell 3.26(L) 4.00 - 5.21 x10(6)/ L [facility] Hemoglobin 8.9(L) 11.7 - 15.5 gm/dL [facility] Hematocrit 27.4(L) 35.7 - 45.8 % [facility] Mean Cell Volume 84.0 82.6 - 94.4 fL [facility] Mean Cell Hemoglobin 27.3 27.1 - 32.0 pg [facility] Mean Cell Hemoglobin Concentration 32.5 31.7 - 35.0 gm/dL [facility] Platelet 360(H) 145 - 357 x10(3)/ L [facility] RDW Standard Deviation 47.2(H) 37.0 - 46.0 fL [facility] RDW coefficient of variation 15.4(H) 11.5 - 14.1 % [facility] Mean Platelet Volume 10.1 7.6 - 12.9 fL [facility] NRBC% auto 0.0 % [facility] NRBC Absolute 0.000 0.000 - 0.000 x10(3)/[facility] Blood specimen (specimen) 04/23/2020 2:25 AM EDT 04/23/2020 2:57 AM EDT Narrative Resulting Agency Comment Spec In Lab Tiesha Morgan MD HEMATOLOGY ORDERABLE S [facility] [place] [address] * Magnesium (04/23/2020 2:25 AM EDT) Magnesium 0.96 0.69 - 1.07 mmol/L [facility] Blood specimen (specimen) 04/23/2020 2:25 AM EDT 04/23/2020 2:57 AM EDT Narrative Resulting Agency Comment Spec In Lab Dale Dash MD CHEMISTRY ORDERABLES Performing Organization Address [facility] Co de Phone Number [facility] [place] [address] * (ABNORMAL) Prothrombin Time (04/23/2020 2:25 AM EDT) Prothrombin Time 14.6(H) 9.4 - 12.5 sec [facility] International Normalization Ratio 1.3 [facility] Comment: An INR <2.0 indicates [...] MD HEMATOLOGY ORDERABLE S Performing Organization Address [facility] Co de Phone Number [facility] [place] [address] * (ABNORMAL) Comprehensive metabolic panel (non-fasting) (04/23/2020 2:25 AM EDT) Glucose 134 65 - 199 mg/dL [facility] Comment:Diabetes: >=200 mg/d L plus symptoms Blood Urea Nitrogen 32(H) 8 - 18 mg/dL [facility] Creatinine 0.96 0.70 - 1.20 mg/dL [facility] Sodium 142 135 - 145 mmol/L [facility] Potassium 3.3(L) 3.5 - 5.0 mmol/L [facility] Comment: Please note: ??Patients with WBC >100,000 may have falsely elevated Potassium levels. ??For accurate Potassium quantification in these patients send serum separator tube (gold top) for subsequent determinations. ??Contact the Clinical Chemistry Laboratory if there are any questions. Chloride 106 98 - 107 mmol/L [facility] Carbon Dioxide 24 22 - 31 mmol/L [facility] Anion Gap 12 5 - 15 mmol/L [facility] Calcium 8.4(L) 8.5 - 10.5 mg/dL [facility] Protein, Total 6.1 6.1 - 8.0 gm/dL [facility] Albumin 2.7(L) 3.2 - 5.2 gm/dL [facility] Aspartate Aminotransferase 17 0 - 30 unit/L [facility] Alanine Aminotransferase 19 0 - 30 unit/L [facility] Alkaline Phosphatase 227(H) 35 - 105 unit/L [facility] Bilirubin, Total 0.5 0.2 - 1.3 mg/dL [facility] Est Glomerular Filtration Rate 56(L) >=60 mL/min/1. 73 m?? [facility] Comment: The eGFR was calculated using the CKD-EPI equation. As with all creatinine based estimates of kidney function, eGFR values calculated with the CKD-EPI equation are not accurate in patients with acute kidney failure, extremes of body mass or the acutely ill. [email or web address] eGFR 65 >=60 mL/min/1. 73 m?? [facility] Comment: The eGFR was calculated using the CKD-EPI equation. As with all creatinine based estimates of kidney function, eGFR values calculated with the CKD-EPI equation are not accurate in patients with acute kidney failure, extremes of body mass or the acutely ill. [email or web address] Blood specimen (specimen) 04/23/2020 2:25 AM EDT 04/23/2020 2:57 AM EDT Narrative Resulting Agency Comment Spec In Lab Dale Dash MD CHEMISTRY ORDERABLES [facility] [place] [address] * POCT Glucose (04/22/2020 11:23 PM EDT) Glucose, POC 143 65 - 199 mg/dL [facility] Comment: Supplemental ranges: <140 mg/dL before meals <180 mg/dL all other times of the day Blood specimen (specimen) 04/22/2020 11:23 PM EDT 04/22/2020 11:23 PM EDT Hong Rosenthal MD POINT OF CARE TEST O ISAIAH Performing Organization Address [facility] Co de Phone Number [facility] [place] [address] * POCT Glucose (04/22/2020 8:00 PM EDT) Glucose, POC 142 65 - 199 mg/dL [facility] Comment: Supplemental ranges: <140 mg/dL before meals <180 mg/dL all other times of the day Blood specimen (specimen) 04/22/2020 8:00 PM EDT 04/22/2020 8:00 PM EDT Hong Rosenthal MD POINT OF CARE TEST O ISAIAH Performing Organization Address [facility] Co de Phone Number [facility] [place] [address] * (ABNORMAL) Potassium (04/22/2020 5:45 PM EDT) Potassium 3.4(L) 3.5 - 5.0 mmol/L [facility] [...] Rosenthal MD CHEMISTRY ORDERABLES Performing Organization Address City/[facility]/ZIP Co de Phone Number [facility] [place] [address] * POCT Glucose (04/22/2020 4:42 PM EDT) Glucose, POC 156 65 - 199 mg/dL [facility] Comment: Supplemental ranges: <140 mg/dL before meals <180 mg/dL all other times of the day Blood specimen (specimen) 04/22/2020 4:42 PM EDT 04/22/2020 4:42 PM EDT Hong Rosenthal MD POINT OF CARE TEST O RDERABLES [facility] [place] [address] * IR Cholecystostomy Tube Placement (04/22/2020 4:19 [...] EDT) Anaerobic Culture No anaerobic organisms isolated [facility] Bile specimen (specimen) 04/22/2020 3:50 PM EDT 04/22/2020 4:36 PM EDT Comment:CHOLECYSTITIS IN THE SETTING OF RECENT ACS S/P STENT PLACEMENT Narrative Resulting Agency Comment Spec In Lab Hong Rosenthal MD MICROBIOLOGY - [facility] ORDERABLES [facility] [place] [address] * (ABNORMAL) Body Fluid Culture, Aerobic (04/22/2020 3:50 PM EDT) Body Fluid Culture Many Raoultella ornithinolytica (Klebsiella ornithinolytica)(A ) [facility] Gram Stain Few Neutrophils seen Rare Gram Negative Rods seen (A) [facility] Organism Raoultella ornithinolytica (Klebsiella ornithinolytica)(A ) [facility] Organism Gram Negative Rods(A) [facility] Bile specimen (specimen) 04/22/2020 3:50 [...] - GENER AL ORDERABLES Performing Organization Address City/State/[facility] Co de Phone Number [facility] [place] [address] * (ABNORMAL) Differential, Automated (04/22/2020 2:05 PM EDT) Neutrophil % 77.2 % [facility] Neutrophil Absolute 9.74(H) 1.70 - 6.10 x10(3)/mc L [facility] Lymph % 11.3 % [facility] Lymphocytes Abs 1.4 0.9 - 3.2 x10(3)/mc L [facility] Monocyte % 8.2 % [facility] Monocyte Abs 1.0(H) 0.3 - 0.9 x10(3)/ L [facility] Eos % 1.9 % [facility] Eosinophils Abs 0.2 0.0 - 0.4 x10(3)/[facility] Basophil % 0.6 % [facility] Baso Absolute 0.1 0.0 - 0.1 x10(3)/[facility] Immature Gran % 0.80 % [facility] Comment: Immature granulocytes(IG's)percentage and absolute count will include metamyelocytes, myelocytes, and promyelocytes. Blood smears from CBCs yielding IG's will be scanned manually for concordance. If this scan disagrees with the automated IG or if promyelocytes are noted, a manual differential will be performed. Immature Gran Absolute 0.10(H) 0.00 - 0.04 x10(3)/[facility] Blood specimen (specimen) 04/22/2020 2:05 PM EDT 04/22/2020 2:17 PM EDT Narrative Resulting Agency Comment Spec In Lab Hong Levi MD HEMATOLOGY ORDERABLE S [facility] [place] [address] * (ABNORMAL) Hemogram (04/22/2020 2:05 PM EDT) White Blood Cell 12.6(H) 4.0 - 9.5 x10(3)/ L [facility] Red Blood Cell 3.51(L) 4.00 - 5.21 x10(6)/[facility] Hemoglobin 9.5(L) 11.7 - 15.5 gm/dL [facility] Hematocrit 29.3(L) 35.7 - 45.8 % [facility] Mean Cell Volume 83.5 82.6 - 94.4 fL [facility] Mean Cell Hemoglobin 27.1 27.1 - 32.0 pg [facility] Mean Cell Hemoglobin Concentration 32.4 31.7 - 35.0 gm/dL [facility] Platelet 340 145 - 357 x10(3)/mc L [facility] RDW Standard Deviation 47.2(H) 37.0 - 46.0 fL [facility] RDW coefficient of variation 15.4(H) 11.5 - 14.1 % [facility] Mean Platelet Volume 10.4 7.6 - 12.9 fL [facility] NRBC% auto 0.0 % [facility] NRBC Absolute 0.000 0.000 - 0.000 x10(3)/mc L [facility] Blood specimen (specimen) 04/22/2020 2:05 PM EDT 04/22/2020 2:17 PM EDT Narrative Resulting Agency Comment Spec In Lab Hong Levi MD HEMATOLOGY ORDERABLE S Performing Organization Address City/[facility]/ZIP Co de Phone Number [facility] [place] [address] * POCT Glucose (04/22/2020 11:29 AM EDT) Pathologist [facility] Glucose, POC 171 65 - 199 mg/dL [facility] Comment: Supplemental ranges: <140 mg/dL before meals <180 mg/dL all other times of the day Blood specimen (specimen) 04/22/2020 11:29 AM EDT 04/22/2020 11:29 AM EDT Hong Rosenthal MD POINT OF CARE TEST O RDERABLES Performing Organization Address City/[facility]/ZIP Co de Phone Number [facility] [place] [address] * (ABNORMAL) BLOOD GAS 2 ARTERIAL (04/22/2020 9:20 AM EDT) [facility] pH, Arterial 7.41 7.35 - 7.45 [facility] PCO2, Arterial 37 35 - 45 mmHg [facility] PO2, Arterial 103 85 - 104 mmHg [facility] Bicarbonate, Arterial 23.4 20.0 - 26.0 mmol/L [facility] Base Excess, Arterial -1.2 -3.0 - 3.0 mmol/L [facility] Hgb Blood Gas 9.3(L) 11.7 - 15.5 gm/dL [facility] Oxyhemoglobin, Arterial 96.3 94.0 - 97.0 % [facility] Carboxyhemoglob in, Arterial 0.3 % [facility] Comment: Nonsmokers: 0.5-1.5% COHB Smokers: Variable, but usually less than 10% Toxic: 20-30% COHB Lethal: Greater than 60% COHB Methemoglobin, Arterial 0.6 <=1.5 % [facility] Na Whole Blood 137 135 - 145 mmol/L [facility] K Whole Blood 3.0(Critic al) 3.5 - 5.0 mmol/L [facility] Comment: Noted by instrumentation technician. Please note: Patients with WBC >100,000 may have falsely elevated Potassium levels. Contact the Clinical Chemistry Laboratory if there are any questions. ICa Whole Blood 1.11(L) 1.15 - 1.33 mmol/L [facility] Comment: Note: ??Total bilirubin higher than 20 mg/dL may lead to falsely low ionized calcium. CL Whole Blood 109(H) 98 - 107 mmol/L [facility] Gluc Whole Bld 147 65 - 199 mg/dL [facility] Comment:Diabetes: >=200 mg/d L plus symptoms. Lactate WB 1.1 0.5 - 2.2 mmol/L [facility] Flow Art 6.0 LPM [facility] Blood specimen (specimen) 04/22/2020 9:20 AM EDT 04/22/2020 9:20 AM EDT Hong Rosenthal MD POINT OF CARE TEST O RDERABLES [facility] [place] [address] * POCT Glucose (04/22/2020 7:35 AM EDT) Glucose, POC 153 65 - 199 mg/dL [facility] Comment: Supplemental ranges: <140 mg/dL before meals <180 mg/dL all other times of the day Blood specimen (specimen) 04/22/2020 7:35 AM EDT 04/22/2020 7:35 AM EDT Hong Rosenthal MD POINT OF CARE TEST O RDERABLES Performing Organization Address [facility] Co de Phone Number [facility] [place] [address] * XR Chest One View (04/22/2020 6:15 [...] 3:50 AM EDT) Neutrophil % 78.4 % [facility] Neutrophil Absolute 10.58(H) 1.70 - 6.10 x10(3)/mc L [facility] Lymph % 11.9 % [facility] Lymphocytes Abs 1.6 0.9 - 3.2 x10(3)/mc L [facility] Monocyte % 8.2 % [facility] Monocyte Abs 1.1(H) 0.3 - 0.9 x10(3)/mc L [facility] Eos % 0.5 % [facility] Eosinophils Abs 0.1 0.0 - 0.4 x10(3)/mc L [facility] Basophil % 0.2 % [facility] Baso Absolute 0.0 0.0 - 0.1 x10(3)/ L [facility] Immature Gran % 0.80 % [facility] Comment: Immature granulocytes(IG's)percentage and absolute count will include metamyelocytes, myelocytes, and promyelocytes. Blood smears from CBCs yielding IG's will be scanned manually for concordance. If this scan disagrees with the automated IG or if promyelocytes are noted, a manual differential will be performed. Immature Gran Absolute 0.11(H) 0.00 - 0.04 x10(3)/[facility] Blood specimen (specimen) 04/22/2020 3:50 AM EDT 04/22/2020 3:57 AM EDT Narrative Resulting Agency Comment Spec In Lab Tiesha Morgan MD HEMATOLOGY ORDERABLE S Performing Organization Address City/State/[facility] Co de Phone Number [facility] [place] [address] * (ABNORMAL) Hemogram (04/22/2020 3:50 AM EDT) White Blood Cell 13.5(H) 4.0 - 9.5 x10(3)/[facility] Red Blood Cell 3.18(L) 4.00 - 5.21 x10(6)/ L [facility] Hemoglobin 8.6(L) 11.7 - 15.5 gm/dL [facility] Hematocrit 26.8(L) 35.7 - 45.8 % [facility] Mean Cell Volume 84.3 82.6 - 94.4 fL [facility] Mean Cell Hemoglobin 27.0(L) 27.1 - 32.0 pg [facility] Mean Cell Hemoglobin Concentration 32.1 31.7 - 35.0 gm/dL [facility] Platelet 313 145 - 357 x10(3)/[facility] RDW Standard Deviation 47.2(H) 37.0 - 46.0 fL [facility] RDW coefficient of variation 15.2(H) 11.5 - 14.1 % [facility] Mean Platelet Volume 10.5 7.6 - 12.9 fL [facility] NRBC% auto 0.0 % [facility] NRBC Absolute 0.000 0.000 - 0.000 x10(3)/mc L [facility] Blood specimen (specimen) 04/22/2020 3:50 AM EDT 04/22/2020 3:57 AM EDT Narrative Resulting Agency Comment Spec In Lab Tiesha Morgan MD HEMATOLOGY ORDERABLE S Performing Organization Address [facility]/ZIP Co de Phone Number [facility] [place] [address] * (ABNORMAL) Magnesium (04/22/2020 3:50 AM EDT) Magnesium 1.46(H) 0.69 - 1.07 mmol/L [facility] Blood specimen (specimen) 04/22/2020 3:50 AM EDT 04/22/2020 3:57 AM EDT Narrative Resulting Agency Comment Spec In Lab Dale Dash MD CHEMISTRY ORDERABLES Performing Organization Address [facility] Co de Phone Number [facility] [place] [address] * (ABNORMAL) Prothrombin Time (04/22/2020 3:50 AM EDT) Prothrombin Time 13.9(H) 9.4 - 12.5 sec [facility] International Normalization Ratio 1.2 [facility] Comment: An INR <2.0 indicates [...] Lab Magdalene Lopez MD HEMATOLOGY ORDERABLE S [facility] [place] [address] * TSH [place] (04/22/2020 3:50 AM EDT) Thyroid Stimulating Hormone 1.22 0.27 - 4.20 mcIU/mL [facility] Blood specimen (specimen) 04/22/2020 3:50 AM EDT 04/22/2020 3:57 AM EDT Narrative Resulting Agency Comment Spec In Lab Hong Rosenthal MD CHEMISTRY ORDERABLES Performing Organization Address City/[facility]/ZIP Co de Phone Number [facility] [place] [place] [address] * Lipid Panel (Reflex Direct LDL) (04/22/2020 3:50 AM EDT) Cholesterol, Total 104 mg/dL [facility] Comment: Lower Risk: <200 mg/dL Average Risk: 200-239 mg/dL Higher Risk: >uu=819 mg/dL Triglyceride 237 mg/dL [facility] Comment: Average Risk/Lower Risk: <150 mg/dL Borderline High Risk: 150-199 mg/dL High Risk: 200-499 mg/dL Very High Risk: >lu=324 mg/dL HDL Cholesterol 17 mg/dL [facility] Comment: Males: ?? Higher Risk: <40 mg/dL Females: ?? HIgher Risk: <50 mg/dL LDL Cholesterol 40 mg/dL [facility] Comment: Lowest Risk: <100 mg/dL Lower Risk: 100-129 mg/dL Borderline High Risk: 130-159 mg/dL High Risk: 160-189 mg/dL Very High Risk: >bo=768 mg/dL Cholesterol/HDL Ratio 6.1 ratio [facility] Lipid Interpretation See Note [facility] Comment: Lipid management should be guided by a patient? s ASCVD risk, goals and preferences. ACC/AHA Guidelines recommend high intensity statin if clinical ASCVD or LDL greater than or equal to 190 mg/dL. [email or web address]://[email or web address] Adults aged 40-75 with LDL 70-189 mg/dL should have their 10 year ASCVD risk estimated with the ACC/AHA ASCVD risk senior program planner http://tools.acc.org/SEGBA-Bdel-Pgwavrrex/ Statin should be discussed if risk greater [...] Rosenthal MD CHEMISTRY ORDERABLES Performing Organization Address City/State/[facility] Co de Phone Number [facility] [place] [address] * (ABNORMAL) Hemoglobin A1c (04/22/2020 3:50 AM EDT) Hemoglobin A1c 8.5(H) 4.3 - 5.6 % [facility] [...] Mellitus, Diabetes Care 2013; 36: Suppl. 1, R06-71 Estimated Average Glucose See note mg/dL [facility] Comment: [...] into estimated average glucose values. ??Diabetes Care 2008:31(8):6005-5391. Blood specimen (specimen) 04/22/2020 3:50 AM EDT 04/22/2020 3:57 AM EDT Narrative Resulting Agency Comment Spec In Lab Hong Rosenthal MD CHEMISTRY ORDERABLES [facility] [place] [address] * (ABNORMAL) Comprehensive metabolic panel (non-fasting) (04/22/2020 3:50 AM EDT) Glucose 157 65 - 199 mg/dL [facility] Comment:Diabetes: >=200 mg/d L plus symptoms Blood Urea Nitrogen 34(H) 8 - 18 mg/dL [facility] Creatinine 1.10 0.70 - 1.20 mg/dL [facility] [...] questions. Chloride 103 98 - 107 mmol/L [facility] Carbon Dioxide 24 22 - 31 mmol/L [facility] Anion Gap 12 5 - 15 mmol/L [facility] Calcium 8.4(L) 8.5 - 10.5 mg/dL [facility] Protein, Total 6.1 6.1 - 8.0 gm/dL [facility] Albumin 2.5(L) 3.2 - 5.2 gm/dL [facility] Aspartate Aminotransferase 19 0 - 30 unit/L [facility] Alanine Aminotransferase 20 0 - 30 unit/L [facility] Alkaline Phosphatase 245(H) 35 - 105 unit/L [facility] Bilirubin, Total 0.6 0.2 - 1.3 mg/dL [facility] Est Glomerular Filtration Rate 48(L) >=60 mL/min/1. 73 m?? [facility] Comment: The eGFR was calculated using the CKD-EPI equation. As with all creatinine based estimates of kidney function, eGFR values calculated with the CKD-EPI equation are not accurate in patients with acute kidney failure, extremes of body mass or the acutely ill. http://[employer]/[facility] eGFR 55(L) >=60 mL/min/1. 73 m?? [facility] Comment: The eGFR was calculated using the CKD-EPI equation. As with all creatinine based estimates of kidney function, eGFR values calculated with the CKD-EPI equation are not accurate in patients with acute kidney failure, extremes of body mass or the acutely ill. http://[employer]/[facility] Blood specimen (specimen) 04/22/2020 3:50 AM EDT 04/22/2020 3:57 AM EDT Narrative Resulting Agency Comment Spec In Lab Dale Dash MD CHEMISTRY ORDERABLES Performing Organization Address City/[facility]/ZIP Co de Phone Number [facility] [place] [address] * POCT Glucose (04/21/2020 11:36 PM EDT) Glucose, POC 195 65 - 199 mg/dL [facility] Comment: Supplemental ranges: <140 mg/dL before meals <180 mg/dL all other times of the day Blood specimen (specimen) 04/21/2020 11:36 PM EDT 04/21/2020 11:36 PM EDT Hong Rosenthal MD POINT OF CARE TEST O RDERABLES Performing Organization Address [facility]/ZIP Co de Phone Number [facility] [place] [address] * (ABNORMAL) Basic Metabolic Panel (non-fasting) (04/21/2020 10:00 PM EDT) Glucose 231(H) 65 - 199 mg/dL [facility] Comment:Diabetes: >=200 mg/d L plus symptoms Blood Urea Nitrogen 31(H) 8 - 18 mg/dL [facility] Creatinine 1.00 0.70 - 1.20 mg/dL [facility] Sodium 138 135 - 145 mmol/L [facility] Potassium 3.6 3.5 - 5.0 mmol/L [facility] Comment: Please note: ??Patients with WBC >100,000 may have falsely elevated Potassium levels. ??For accurate Potassium quantification in these patients send serum separator tube (gold top) for subsequent determinations. ??Contact the Clinical Chemistry Laboratory if there are any questions. Chloride 102 98 - 107 mmol/L [facility] Carbon Dioxide 24 22 - 31 mmol/L [facility] Anion Gap 12 5 - 15 mmol/L [facility] Calcium 8.5 8.5 - 10.5 mg/dL [facility] Est Glomerular Filtration Rate 54(L) >=60 mL/min/1. 73 m?? [facility] Comment: The eGFR was calculated using the CKD-EPI equation. As with all creatinine based estimates of kidney function, eGFR values calculated with the CKD-EPI equation are not accurate in patients with acute kidney failure, extremes of body mass or the acutely ill. http://[employer]/[facility] eGFR 62 >=60 mL/min/1. 73 m?? [facility] Comment: The eGFR was calculated using the CKD-EPI equation. As with all creatinine based estimates of kidney function, eGFR values calculated with the CKD-EPI equation are not accurate in patients with acute kidney failure, extremes of body mass or the acutely ill. [email or web address] Blood specimen (specimen) 04/21/2020 10:00 PM EDT 04/21/2020 10:04 PM EDT Narrative Resulting Agency Comment Spec In Lab Hong Rosenthal MD CHEMISTRY ORDERABLES [facility] [place] [address] * (ABNORMAL) POCT Glucose (04/21/2020 7:49 PM EDT) [facility] Glucose, POC 201(H) 65 - 199 mg/dL [facility] Comment: Supplemental ranges: <140 mg/dL before meals <180 mg/dL all other times of the day Blood specimen (specimen) 04/21/2020 7:49 PM EDT 04/21/2020 7:49 PM EDT Hong Rosenthal MD POINT OF CARE TEST O RDERABLES [facility] [place] [address] * (ABNORMAL) Point of Care Blood Gas Historical (04/21/2020 4:44 PM EDT) pH, POC 7.43 7.35 - 7.45 [facility] pCO2, POC 31(L) 35 - 45 mmHg [facility] pO2, POC 58(L) 85 - 104 mmHg [facility] Base Excess, POC -4.0(L) -3.0 - 3.0 mmol/L [facility] Bicarbonate, POC 20.3 20.0 - 26.0 mmol/L [facility] Sodium, POC 139 135 - 145 mmol/L [facility] P[facility] Potassium 3.4(L) 3.5 - 5.0 mmol/L [facility] Ionized Calcium, POC 1.16 1.15 - 1.33 mmol/L [facility] P[facility] Hematocrit 29.0(L) 34.0 - 45.0 % [facility] Calc Hgb 9.9(L) 11.2 - 15.7 gm/dL [facility] Comment:The calculation of h emoglobin from hematocrit assumes a normal MCHC. POC Bgas Loc CC LAB [facility] Blood specimen (specimen) 04/21/2020 4:44 PM EDT 04/22/2020 12:00 PM EDT Abiodun Chun MD CHEMISTRY ORDERABLES Performing Organization Address City/State/[facility] Co de Phone Number [facility] [place] [address] * CARDIAC CATHETERIZATION (04/21/2020 4:08 PM EDT) Anatomical Region Laterality Modality Other Narrative 04/21/2020 6:49 PM EDT ?[facility] ? Cardiac Catheterization/Intervention Report ? Patient Name: HEIDY, SHANNAN A. ? Procedure Date: 04/21/2020 ? A #: [id number] ? Primary Physician: Barbie, Esau Escobar ? Case #: [id number] ? File Name: [id number] ? Catheterization Order Number: [id number] ? [facility] ? Final Report [place], [place] ? Patient Name: ? SHANNAN A. HEIDY ? ID#: ?[id number] ? : ?1940 ? Procedure Date: ? April 21, 2020 ?Case #: ? [id number] ? Room: ? 2 ? Case Physician: ? Esau Rahman M.D. ?Start: ?15:54 ?Fellow: ? Sandy RamanDamien chao. ?Admission: ??04/19/2020 ? Referring Physician: ??Reshma Baig [...] procedure was Urgent. 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 ??Imaging ?was successful. [...] The lesion was predilated with a 3.00mm Walnut CB 15 MM ? balloon with a [...] may require ?modification of this regimen. Consult [facility] for ?questions. ?The 1 year [...] Procedure Note Esau Rahman MD - 04/21/2020 [facility] Cardiac Catheterization/Intervention Report Patient Name: SHANNAN CHAUDHARY Procedure Date: 04/21/2020 A #: [id number] Primary Physician: Esau Rahman Case #: [id number] File Name: [id number] Catheterization Order Number: [id number] [facility] FinalReport [place], [place] Patient Name: SHANNAN SHIC ID#:[id number] :1940 Procedure Date: April 21, 2020 Case [...] patient was designated asASA Class IV. The [facility] clinical frailty scale is 5: Mildly Frail. Diagnostic Tests: Prior Coronary Angiography: LV ejection fraction within 6 months is 59%. Electrocardiography: EKG was assessed by ECG. EKG was Abnormal. EKG showed other abnormality. Medications Prior to Procedure: Angiotensin Converting Enzyme Inhibitor, Beta Shari andStatin. Indications for Diagnostic Cath: The priority of the diagnostic procedure was Urgent. The indicationfor the ear mold laboratory technician visit is ACS less than [...] 29.0 minutes, dose area product was [id number] [id number] air kerma was 3,430 mGY. See the [...] 4 guiding catheter and a 3.[address] [facility] [address] 20 Mhz.Imaging was successful. Image quality was good. The ostial RCA showedscattered atherosclerotic plaque. Post Intervention: The stent was well expanded and apposed. Additional Findings: Stent seen not extend past ostium, andadequately covered lesion. Indication for Intervention: Coronary intervention was indicated for primary therapy for an acute myocardial infarction. The priority for the procedure was Urgent.The [facility] indication for the procedure was NSTE-ACS. LVEF [...] The lesion was predilated with a 3.00mm Walnut CB 15MM balloon with a maximum inflation [...] situation mayrequire modification of this regimen. Consult [facility]iologyfor questions. The 1 year bleeding [...] Glucose, POC 180 65 - 199 mg/dL [facility] Comment: Supplemental ranges: <140 mg/dL before meals <180 mg/dL all other times of the day Blood specimen (specimen) 04/21/2020 12:15 PM EDT 04/21/2020 12:15 PM EDT Hong Rosenthal MD POINT OF CARE TEST O RDERABLES [facility] [place] [address] * XR Chest One View (04/21/2020 4:51 [...] EDT) Troponin-T 0.13(H) 0.00 - 0.00 ng/mL [facility] Comment: The 99th percentile for Troponin T is less than 0.01 ng/mL, any detectable cTnT concentration using this assay should be considered elevated. According to the third universal definition of myocardial infarction the following criteria with a clinical presentation consistent with acute myocardial ischemia meets the diagnosis for a myocardial infarction ([place]). Detection of a rise and/or fall of cTnT, with at least one value greater than the 99th percentile (> or = 0.01) and with at least one of the following ?? Symptoms of ischemia ?? New or presumed new significant NB-egxqhip-P wave (ST-T) changes or new left bundle [...] additional sample may be indicated. Reference: Third [place] Definition of Myocardial Infarction. Journal of the [place] College [employer] 2012;60:1581-98 Blood specimen (specimen) 04/21/2020 4:45 AM EDT 04/21/2020 4:56 AM EDT Narrative Resulting Agency Comment Spec In Lab Hong Rosenthal MD CHEMISTRY ORDERABLES Performing Organization Address [facility] de Phone Number [facility] [place] [address] * EKG 12 Lead (04/21/2020 4:33 AM EDT) Ventricular rate 83 BPM MUSE SYSTEM Atrial Rate 83 BPM MUSE SYSTEM P-R Interval 148 ms MUSE SYSTEM QRS Duration 138 ms MUSE SYSTEM Q-T Interval 408 ms MUSE SYSTEM QTC Calculated (Bezet) 479 ms MUSE SYSTEM Calculated P [place] 57 degrees MUSE SYSTEM Calculated R [place] 49 degrees MUSE SYSTEM Calculated T [place] 19 degrees MUSE SYSTEM INTERPRETATION Normal sinus rhythm Right bundle branch block Abnormal ECG When compared with ECG of 20-APR-2020 14:08, (unconfirmed) No significant change was found I personally reviewed the tracing and edited the fellows interpretation Confirmed by fellow Ren Quinn [id number]) on 04/21/2020 1:32:16 PM Confirmed by Lisbeth Cain ([id number]) on 04/21/2020 7:47:23 PM MUSE SYSTEM 04/21/2020 4:33 AM EDT 04/21/2020 7:47 PM EDT Hong Rosenthal MD ECG ORDERABLES Performing Organization Address [facility] Phone Number MUSE SYSTEM * POCT Glucose (04/21/2020 3:53 AM EDT) Glucose, POC 138 65 - 199 mg/dL [facility] Comment: Supplemental ranges: <140 mg/dL before meals <180 mg/dL all other times of the day Blood specimen (specimen) 04/21/2020 3:53 AM EDT 04/21/2020 3:53 AM EDT Hong Rosenthal MD POINT OF CARE TEST O RDERABLES Performing Organization Address [facility] Co de Phone Number [facility] [place] [address] * (ABNORMAL) Differential, Automated (04/21/2020 3:30 AM EDT) Neutrophil % 86.1 % [facility] Neutrophil Absolute 14.52(H) 1.70 - 6.10 x10(3)/mc L [facility] Lymph % 6.9 % [facility] Lymphocytes Abs 1.2 0.9 - 3.2 x10(3)/mc L [facility] Monocyte % 5.2 % [facility] Monocyte Abs 0.9 0.3 - 0.9 x10(3)/mc L [facility] Eos % 0.4 % [facility] Eosinophils Abs 0.1 0.0 - 0.4 x10(3)/[facility] Basophil % 0.2 % [facility] Baso Absolute 0.0 0.0 - 0.1 x10(3)/mc L [facility] Immature Gran % 1.20 % [facility] Comment: Immature granulocytes(IG's)percentage and absolute count will include metamyelocytes, myelocytes, and promyelocytes. Blood smears from CBCs yielding IG's will be scanned manually for concordance. If this scan disagrees with the automated IG or if promyelocytes are noted, a manual differential will be performed. Immature Gran Absolute 0.20(H) 0.00 - 0.04 x10(3)/mc L [facility] Blood specimen (specimen) 04/21/2020 3:30 AM EDT 04/21/2020 3:34 AM EDT Narrative Resulting Agency Comment Spec In Lab Tiesha Morgan MD HEMATOLOGY ORDERABLE S [facility] [place] [address] * (ABNORMAL) Hemogram (04/21/2020 3:30 AM EDT) White Blood Cell 16.9(H) 4.0 - 9.5 x10(3)/[facility] Red Blood Cell 3.68(L) 4.00 - 5.21 x10(6)/ L [facility] Hemoglobin 10.1(L) 11.7 - 15.5 gm/dL [facility] Hematocrit 31.1(L) 35.7 - 45.8 % [facility] Mean Cell Volume 84.5 82.6 - 94.4 fL [facility] Mean Cell Hemoglobin 27.4 27.1 - 32.0 pg [facility] Mean Cell Hemoglobin Concentration 32.5 31.7 - 35.0 gm/dL [facility] Platelet 275 145 - 357 x10(3)/[facility] RDW Standard Deviation 47.4(H) 37.0 - 46.0 fL [facility] RDW coefficient of variation 15.3(H) 11.5 - 14.1 % [facility] Mean Platelet Volume 10.4 7.6 - 12.9 fL [facility] NRBC% auto 0.0 % [facility] NRBC Absolute 0.000 0.000 - 0.000 x10(3)/[facility] Blood specimen (specimen) 04/21/2020 3:30 AM EDT 04/21/2020 3:34 AM EDT Narrative Resulting Agency Comment Spec In Lab Tiesha Morgan MD HEMATOLOGY ORDERABLE S [facility] [place] [address] * (ABNORMAL) Magnesium (04/21/2020 3:30 AM EDT) Pathologist [facility] Magnesium 1.09(H) 0.69 - 1.07 mmol/L [facility] Comment:result rechecked-kk Blood specimen (specimen) 04/21/2020 3:30 AM EDT 04/21/2020 3:34 AM EDT Narrative Resulting Agency Comment Spec In Lab Dale Dash MD CHEMISTRY ORDERABLES Performing Organization Address [facility] de Phone Number [facility] [place] [address] * (ABNORMAL) Prothrombin Time (04/21/2020 3:30 AM EDT) Prothrombin Time 14.4(H) 9.4 - 12.5 sec [facility] International Normalization Ratio 1.2 [facility] Comment: An INR <2.0 indicates [...] MD HEMATOLOGY ORDERABLE S Performing Organization Address [facility] Co de Phone Number [facility] [place] [address] * (ABNORMAL) Comprehensive metabolic panel (non-fasting) (04/21/2020 3:30 AM EDT) Pathologist [facility] Glucose 149 65 - 199 mg/dL [facility] Comment:Diabetes: >=200 mg/d L plus symptoms Blood Urea Nitrogen 39(H) 8 - 18 mg/dL [facility] Creatinine 1.31(H) 0.70 - 1.20 mg/dL [facility] Sodium 138 135 - 145 mmol/L [facility] [...] 98 - 107 mmol/L [facility] Carbon Dioxide 21(L) 22 - 31 mmol/L [facility] Anion Gap 15 5 - 15 mmol/L [facility] Calcium 8.6 8.5 - 10.5 mg/dL [facility] Protein, Total 6.6 6.1 - 8.0 gm/dL [facility] Albumin 3.1(L) 3.2 - 5.2 gm/dL [facility] Aspartate Aminotransferase 38(H) 0 - 30 unit/L [facility] Comment:result rechecked-kk Alanine Aminotransferase 29 0 - 30 unit/L [facility] Alkaline Phosphatase 257(H) 35 - 105 unit/L [facility] Comment:result rechecked-kk Bilirubin, Total 1.0 0.2 - 1.3 mg/dL [facility] Est Glomerular Filtration Rate 39(L) >=60 mL/min/1. 73 m?? [facility] Comment: The eGFR was calculated using the CKD-EPI equation. As with all creatinine based estimates of kidney function, eGFR values calculated with the CKD-EPI equation are not accurate in patients with acute kidney failure, extremes of body mass or the acutely ill. http://[employer]/[facility] eGFR 45(L) >=60 mL/min/1. 73 m?? [facility] Comment: The eGFR was calculated using the CKD-EPI equation. As with all creatinine based estimates of kidney function, eGFR values calculated with the CKD-EPI equation are not accurate in patients with acute kidney failure, extremes of body mass or the acutely ill. [email or web address]://[employer]/[facility] Blood specimen (specimen) 04/21/2020 3:30 AM EDT 04/21/2020 3:34 AM EDT Narrative Resulting Agency Comment Spec In Lab Dale Dash MD CHEMISTRY ORDERABLES [facility] [place] [address] * (ABNORMAL) Troponin (04/20/2020 11:55 PM EDT) [facility] Troponin-T 0.12(H) 0.00 - 0.00 ng/mL [facility] Comment: The 99th percentile for Troponin T is less than 0.01 ng/mL, any detectable cTnT concentration using this assay should be considered elevated. According to the third universal definition of myocardial infarction the following criteria with a clinical presentation consistent with acute myocardial ischemia meets the diagnosis for a myocardial infarction ([place]). Detection of a rise and/or fall of cTnT, with at least one value greater than the 99th percentile (> or = 0.01) and with at least one of the following ?? Symptoms of ischemia ?? New or presumed new significant LI-tupsjma-V wave (ST-T) changes or new left bundle [...] additional sample may be indicated. Reference: Third [place] Definition of Myocardial Infarction. Journal of the [place] College [employer] 2012;60:1581-98 Blood specimen (specimen) 04/20/2020 11:55 PM EDT 04/21/2020 1:03 AM EDT Narrative Resulting Agency Comment Spec In Lab Hong Rosenthal MD CHEMISTRY ORDERABLES Performing Organization Address [facility]/ZIP Co de Phone Number [facility] [place] [address] * POCT Glucose (04/20/2020 11:46 PM EDT) Glucose, POC 144 65 - 199 mg/dL [facility] Comment: Supplemental ranges: <140 mg/dL before meals <180 mg/dL all other times of the day Blood specimen (specimen) 04/20/2020 11:46 PM EDT 04/20/2020 11:46 PM EDT Hong Rosenthal MD POINT OF CARE TEST O ISAIAH Performing Organization Address City/[facility] Co de Phone Number [facility] [place] [address] * POCT Glucose (04/20/2020 7:42 PM EDT) Glucose, POC 136 65 - 199 mg/dL [facility] Comment: Supplemental ranges: <140 mg/dL before meals <180 mg/dL all other times of the day Blood specimen (specimen) 04/20/2020 7:42 PM EDT 04/20/2020 7:42 PM EDT Hong Rosenthal MD POINT OF CARE TEST O ISAIAH Performing Organization Address [facility] Co de Phone Number [facility] [place] [address] * (ABNORMAL) Troponin (04/20/2020 5:35 PM EDT) Pathologist [facility] Troponin-T 0.17(H) 0.00 - 0.00 ng/mL [facility] Comment: The 99th percentile for Troponin T is less than 0.01 ng/mL, any detectable cTnT concentration using this assay should be considered elevated. According to the third universal definition of myocardial infarction the following criteria with a clinical presentation consistent with acute myocardial ischemia meets the diagnosis for a myocardial infarction ([place]). Detection of a rise and/or fall of cTnT, with at least one value greater than the 99th percentile (> or = 0.01) and with at least one of the following ?? Symptoms of ischemia ?? New or presumed new significant IE-jrloutu-M wave (ST-T) changes or new left bundle [...] additional sample may be indicated. Reference: Third [place] Definition of Myocardial Infarction. Journal of the [place] [employer] 2012;60:1581-98 Blood specimen (specimen) 04/20/2020 5:35 PM EDT 04/20/2020 5:54 PM EDT Narrative Resulting Agency Comment Spec In Lab Magdalene Lopez MD CHEMISTRY ORDERABLES Performing Organization Address [facility] Co de Phone Number [facility] [place] [address] * POCT Glucose (04/20/2020 4:01 PM EDT) [facility] Glucose, POC 135 65 - 199 mg/dL [facility] Comment: Supplemental ranges: <140 mg/dL before meals <180 mg/dL all other times of the day Blood specimen (specimen) 04/20/2020 4:01 PM EDT 04/20/2020 4:01 PM EDT Magdalene Lopez MD POINT OF CARE TEST O RDERABLES Performing Organization Address [facility] de Phone Number [facility] [place] [address] * EKG 12 Lead (04/20/2020 2:08 PM EDT) [facility] Ventricular rate 97 BPM MUSE SYSTEM Atrial Rate 97 BPM MUSE SYSTEM P-R Interval 150 ms MUSE SYSTEM QRS Duration 126 ms MUSE SYSTEM Q-T Interval 382 ms MUSE SYSTEM QTC Calculated (Bezet) 485 ms MUSE SYSTEM Calculated P [place] 58 degrees MUSE SYSTEM Calculated R [place] 35 degrees MUSE SYSTEM Calculated T [place] 11 degrees MUSE SYSTEM INTERPRETATION Normal sinus rhythm with sinus arrhythmia Right bundle branch block Abnormal ECG When compared with ECG of 20-APR-2020 11:30, (unconfirmed) No significant change was found Confirmed by Lisbeth Cain ([email or web address]) on 04/21/2020 3:48:13 PM MUSE SYSTEM 04/20/2020 2:08 PM EDT 04/21/2020 3:48 PM EDT Magdalene Lopez MD ECG ORDERABLES Performing Organization Address [place] Hospital/ZIP Co de Phone Number MUSE SYSTEM * POCT Glucose (04/20/2020 11:32 AM EDT) Glucose, POC 140 65 - 199 mg/dL [facility] Comment: Supplemental ranges: <140 mg/dL before meals <180 mg/dL all other times of the day Blood specimen (specimen) 04/20/2020 11:32 AM EDT 04/20/2020 11:32 AM EDT Magdalene Lopez MD POINT OF CARE TEST O RDERABLES Performing Organization Address [facility] Co de Phone Number [facility] [place] [address] * EKG 12 Lead (04/20/2020 11:30 AM EDT) Ventricular rate 77 BPM MUSE SYSTEM Atrial Rate 77 BPM MUSE SYSTEM P-R Interval 160 ms MUSE SYSTEM QRS Duration 120 ms MUSE SYSTEM Q-T Interval 406 ms MUSE SYSTEM QTC Calculated (Bezet) 459 ms MUSE SYSTEM Calculated P [place] 48 degrees MUSE SYSTEM Calculated R [place] 27 degrees MUSE SYSTEM Calculated T [place] 18 degrees MUSE SYSTEM INTERPRETATION Sinus rhythm with premature atrial contractions Right bundle branch block Abnormal ECG When compared with ECG of 20-APR-2020 02:33, (unconfirmed) Sinus rhythm has replaced Atrial fibrillation Vent. rate has decreased BY ??[address] no longer depressed in Anterolateral leads Nonspecific T wave abnormality has replaced inverted T waves in Inferior leads Confirmed by Lisbeth Cain (Kailey) on 04/21/2020 3:48:08 PM MUSE SYSTEM 04/20/2020 11:3 0 AM EDT 04/21/2020 3:48 PM EDT Magdalene Lopez MD ECG ORDERABLES Performing Organization Address City/[facility] Co de Phone Number MUSE SYSTEM * (ABNORMAL) Troponin (04/20/2020 11:30 AM EDT) Pathologist [facility] Troponin-T 0.22(H) 0.00 - 0.00 ng/mL [facility] Comment: The 99th percentile for Troponin T is less than 0.01 ng/mL, any detectable cTnT concentration using this assay should be considered elevated. According to the third universal definition of myocardial infarction the following criteria with a clinical presentation consistent with acute myocardial ischemia meets the diagnosis for a myocardial infarction ([place]). Detection of a rise and/or fall of cTnT, with at least one value greater than the 99th percentile (> or = 0.01) and with at least one of the following ?? Symptoms of ischemia ?? New or presumed new significant EI-zenyptg-V wave (ST-T) changes or new left bundle [...] additional sample may be indicated. Reference: Third [place] Definition of Myocardial Infarction. Journal of the [place] [employer] 2012;60:1581-98 Blood specimen (specimen) 04/20/2020 11:30 AM EDT 04/20/2020 11:45 AM EDT Narrative Resulting Agency Comment Spec In Lab Magdalene Lopez MD CHEMISTRY ORDERABLES [facility] [place] [address] * ECHO COMPLETE (04/20/2020 10:20 AM EDT) EF 59 HEARTLAB SYSTEM Anatomical Region Laterality Modality Other 04/20/2020 Narrative 04/20/2020 12:35 PM EDT Procedure: ?Transthoracic Echocardiogram Patient: ?HEIDY SHANNAN A ? (Age): 1940(79y) Med Rec#: ? [id number] ?Sex: ?F ? Site Loc: ? [facility] ?Ht / Wt: ??152(cm)/86(kg) Pt. Loc: ?ICU ? BSA: ?1.82 Study Date: ?? 04/20/2020 ?Pt. Type: Inpatient Tape: ? Referring: BETHANY IRELAND A Reading: Ari Rutledge ([id number]) Network Operations Manager: Hong Ahn [facility] Interpreting Fellow: Cris Rosario ([id number]) Interpreting Fellow: Oscar Barger ([id number]) Diagnosis: *Nonrheumatic aortic (valve) stenosis (I35.0) BP: [...] Vmax ?1.48 ? m/sec ? MV deceleration [id number] ?msec ? MV A-wave Vmax ?0.78 ? [...] ? Mid-Inferior ?Normal ? Mid-Inferoseptal ?Normal ? [place]-Septal ? Normal ? [place]-Anterior ? Normal ? [place]-Lateral ?Normal ? [place]-Inferior ? Normal ? [place]-Tip ?Normal ? This report has been electronically signed by: Ari Rutledge MD ? 04/20/2020 12:35:04 Images reviewed and interpretation verified [facility] Procedure Note Ari Rutledge MD - 04/20/2020 Procedure: Transthoracic Echocardiogram Patient: HEIDY ANDERSON(Age): 1940(79y) Med Rec#: [id number] Sex: F [place] [facility] Ht / Wt: 152(cm)/86(kg) Pt. Loc: ICU BSA: 1.82 Study Date: 04/20/2020 Pt. Type: Inpatient Tape: Referring: BETHANY IRELAND A Reading: Ari Rutledge ([id number]) Network Operations Manager: Hong Ahn [facility] Interpreting Fellow: Cris Rosario ([id number]) Interpreting Fellow: Oscar Barger ([id number]) Diagnosis: *Nonrheumatic aortic (valve) stenosis (I35.0) BP: [...] MV E-wave Vmax 1.48 m/sec MV deceleration [id number] msec MV A-wave Vmax 0.78 m/sec MV [...] Normal Mid-Posterolateral Normal Mid-Inferior Normal Mid-Inferoseptal Normal [place]-Septal Normal [place]-Anterior Normal [place]-Lateral Normal [place]-Inferior Normal [place]-Tip Normal This report has been electronically signed by: Ari Rutledge MD 04/20/2020 12:35:04 Images reviewed and interpretation verified [facility] Magdalene Lopez MD ECHO ORDERABLES * POCT Glucose (04/20/2020 8:10 AM EDT) Glucose, POC 128 65 - 199 mg/dL [facility] Comment: Supplemental ranges: <140 mg/dL before meals <180 mg/dL all other times of the day Blood specimen (specimen) 04/20/2020 8:10 AM EDT 04/20/2020 8:10 AM EDT Magdalene Lopez MD POINT OF CARE TEST O RDERABLES Performing Organization Address City/[facility]/ZIP Co de Phone Number [facility] [place] [address] * Lactate, whole blood, send to lab [place] (04/20/2020 5:25 AM EDT) Lactate WB 1.6 0.5 - 2.2 mmol/L [facility] Blood specimen (specimen) Venous Draw / Unknown 04/20/2020 5:25 AM EDT 04/20/2020 6:46 AM EDT Narrative Resulting Agency Comment Spec In Lab Ginna Josue DO CHEMISTRY ORDERABLES [facility] [place] [address] * POCT Glucose (04/20/2020 5:23 AM EDT) Glucose, POC 151 65 - 199 mg/dL [facility] Comment: Supplemental ranges: <140 mg/dL before meals <180 mg/dL all other times of the day Blood specimen (specimen) 04/20/2020 5:23 AM EDT 04/20/2020 5:23 AM EDT Magdalene Lopez MD POINT OF CARE TEST O RDERABLES [facility] [place] [address] * (ABNORMAL) Differential, Automated (04/20/2020 3:25 AM EDT) Neutrophil % 86.0 % [facility] Neutrophil Absolute 15.43(H) 1.70 - 6.10 x10(3)/ L [facility] Lymph % 5.4 % [facility] Lymphocytes Abs 1.0 0.9 - 3.2 x10(3)/[facility] Monocyte % 5.9 % [facility] Monocyte Abs 1.0(H) 0.3 - 0.9 x10(3)/ L [facility] Eos % 0.4 % [facility] Eosinophils Abs 0.1 0.0 - 0.4 x10(3)/[facility] Basophil % 0.3 % [facility] Baso Absolute 0.1 0.0 - 0.1 x10(3)/ L [facility] Immature Gran % 2.00 % [facility] Comment: Immature granulocytes(IG's)percentage and absolute count will include metamyelocytes, myelocytes, and promyelocytes. Blood smears from CBCs yielding IG's will be scanned manually for concordance. If this scan disagrees with the automated IG or if promyelocytes are noted, a manual differential will be performed. Immature Gran Absolute 0.36(H) 0.00 - 0.04 x10(3)/ L [facility] Blood specimen (specimen) 04/20/2020 3:25 AM EDT 04/20/2020 3:32 AM EDT Narrative Resulting Agency Comment Spec In Lab Tiesha Morgan MD HEMATOLOGY ORDERABLE S [facility] [place] [address] * (ABNORMAL) Hemogram (04/20/2020 3:25 AM EDT) White Blood Cell 17.9(H) 4.0 - 9.5 x10(3)/mc L [facility] Red Blood Cell 3.75(L) 4.00 - 5.21 x10(6)/mc L [facility] Hemoglobin 10.3(L) 11.7 - 15.5 gm/dL [facility] Hematocrit 32.6(L) 35.7 - 45.8 % [facility] Mean Cell Volume 86.9 82.6 - 94.4 fL [facility] Mean Cell Hemoglobin 27.5 27.1 - 32.0 pg [facility] Mean Cell Hemoglobin Concentration 31.6(L) 31.7 - 35.0 gm/dL [facility] Platelet 217 145 - 357 x10(3)/mc L [facility] RDW Standard Deviation 48.5(H) 37.0 - 46.0 [facility] RDW coefficient of variation 15.0(H) 11.5 - 14.1 % [facility] Mean Platelet Volume 10.7 7.6 - 12.9 [facility] LAB[facility]ATORY NRBC% auto 0.0 % [facility] NRBC Absolute 0.000 0.000 - 0.000 x10(3)/ L [facility] Blood specimen (specimen) 04/20/2020 3:25 AM EDT 04/20/2020 3:32 AM EDT Narrative Resulting Agency Comment Spec In Lab Tiesha Morgan MD HEMATOLOGY ORDERABLE S [facility] [place] [address] * POCT Glucose (04/20/2020 3:08 AM EDT) [facility] Glucose, POC 134 65 - 199 mg/dL [facility] Comment: Supplemental ranges: <140 mg/dL before meals <180 mg/dL all other times of the day Blood specimen (specimen) 04/20/2020 3:08 AM EDT 04/20/2020 3:08 AM EDT Magdalene Lopez MD POINT OF CARE TEST O RDERABLES Performing Organization Address City/[facility]/ZIP Co de Phone Number [facility] [place] [address] * Lipase (04/20/2020 2:43 AM EDT) [facility] Lipase 11 0 - 60 unit/L [facility] Blood specimen (specimen) Venous Draw / Unknown 04/20/2020 2:43 AM EDT 04/20/2020 3:32 AM EDT Narrative Resulting Agency Comment Spec In Lab Jos Sun MD CHEMISTRY ORDERABLES Performing Organization Address City/[facility]/ZIP Co de Phone Number [facility] [place] [address] * (ABNORMAL) Hepatic Function Panel (04/20/2020 2:43 AM EDT) [facility] Protein, Total Not Perf 6.1 - 8.0 [facility] Comment:Duplicate order, alr addis done in CMP Albumin Not Perf 3.2 - 5.2 [facility] Comment:Duplicate order, alr addis done in CMP Aspartate Aminotransferase Not Perf 0 - 30 [facility] Comment:Duplicate order, alr addis done in CMP Alanine Aminotransferase Not Perf 0 - 30 [facility] Comment:Duplicate order, alr addis done in CMP Alkaline Phosphatase Not Perf 35 - 105 [facility] Comment:Duplicate order, alr addis done in CMP Bilirubin, Total Not Perf 0.2 - 1.[address] [facility] Comment:Duplicate order, alr addis done in CMP Bilirubin, Direct 0.5(H) 0.0 - 0.3 mg/dL [facility] Blood specimen (specimen) Venous Draw / Unknown 04/20/2020 2:43 AM EDT 04/20/2020 3:32 AM EDT Narrative Resulting Agency Comment Spec In Lab Jos Sun MD CHEMISTRY ORDERABLES Performing Organization Address City/[facility]/ZIP Co de Phone Number [facility] [place] [address] * Phosphorus (04/20/2020 2:43 AM EDT) Phosphorus 3.6 2.5 - 4.5 mg/dL [facility] Blood specimen (specimen) Venous Draw / Unknown 04/20/2020 2:43 AM EDT 04/20/2020 3:32 AM EDT Narrative Resulting Agency Comment Spec In Lab Tiesha Morgan MD CHEMISTRY ORDERABLES Performing Organization Address [facility] Co de Phone Number [facility] [place] [address] * Magnesium (04/20/2020 2:43 AM EDT) Magnesium 0.71 0.69 - 1.07 mmol/L [facility] Blood specimen (specimen) Venous Draw / Unknown 04/20/2020 2:43 AM EDT 04/20/2020 3:32 AM EDT Narrative Resulting Agency Comment Spec In Lab Tiesha Morgan MD CHEMISTRY ORDERABLES Performing Organization Address [facility] Co de Phone Number [facility] [place] [address] * (ABNORMAL) Comprehensive metabolic panel (non-fasting) (04/20/2020 2:43 AM EDT) Glucose 129 65 - 199 mg/dL [facility] Comment:Diabetes: >=200 mg/d L plus symptoms Blood Urea Nitrogen 30(H) 8 - 18 mg/dL [facility] Creatinine 1.26(H) 0.70 - 1.20 mg/dL [facility] Sodium 134(L) 135 - 145 mmol/L [facility] Potassium 3.9 3.5 - 5.0 mmol/L [facility] Comment: Please note: ??Patients with WBC >100,000 may have falsely elevated Potassium levels. ??For accurate Potassium quantification in these patients send serum separator tube (gold top) for subsequent determinations. ??Contact the Clinical Chemistry Laboratory if there are any questions. Chloride 100 98 - 107 mmol/L [facility] Carbon Dioxide 20(L) 22 - 31 mmol/L [facility] Anion Gap 14 5 - 15 mmol/L [facility] Calcium 8.3(L) 8.5 - 10.5 mg/dL [facility] Protein, Total 6.1 6.1 - 8.0 gm/dL [facility] Albumin 2.8(L) 3.2 - 5.2 gm/dL [facility] Aspartate Aminotransferase 18 0 - 30 unit/L [facility] Alanine Aminotransferase 22 0 - 30 unit/L [facility] Alkaline Phosphatase 139(H) 35 - 105 unit/L [facility] Bilirubin, Total 1.5(H) 0.2 - 1.3 mg/dL [facility] Est Glomerular Filtration Rate 40(L) >=60 mL/min/1. 73 m?? [facility] Comment: The eGFR was calculated using the CKD-EPI equation. As with all creatinine based estimates of kidney function, eGFR values calculated with the CKD-EPI equation are not accurate in patients with acute kidney failure, extremes of body mass or the acutely ill. [email or web address]/[email or web address] eGFR 47(L) >=60 mL/min/1. 73 m?? [facility] Comment: The eGFR was calculated using the CKD-EPI equation. As with all creatinine based estimates of kidney function, eGFR values calculated with the CKD-EPI equation are not accurate in patients with acute kidney failure, extremes of body mass or the acutely ill. [email or web address] Blood specimen (specimen) 04/20/2020 2:43 AM EDT 04/20/2020 3:12 AM EDT Narrative Resulting Agency Comment Spec In Lab Magdalene Lopez MD CHEMISTRY ORDERABLES Performing Organization Address [facility] Co de Phone Number [facility] [place] [address] * (ABNORMAL) Prothrombin Time (04/20/2020 2:43 AM EDT) Prothrombin Time 15.7(H) 9.4 - 12.5 sec [facility] International Normalization Ratio 1.4 [facility] Comment: An INR <2.0 indicates [...] MD HEMATOLOGY ORDERABLE S Performing Organization Address [facility] Co de Phone Number [facility] [place] [address] * Troponin (04/20/2020 2:43 AM EDT) Troponin-T <0.01 0.00 - 0.00 ng/mL [facility] Comment: The 99th percentile for Troponin T is less than 0.01 ng/mL, any detectable cTnT concentration using this assay should be considered elevated. According to the third universal definition of myocardial infarction the following criteria with a clinical presentation consistent with acute myocardial ischemia meets the diagnosis for a myocardial infarction ([place]). Detection of a rise and/or fall of cTnT, with at least one value greater than the 99th percentile (> or = 0.01) and with at least one of the following ?? Symptoms of ischemia ?? New or presumed new significant OU-iqdwkdm-X wave (ST-T) changes or new left bundle [...] additional sample may be indicated. Reference: Third [place] Definition of Myocardial Infarction. Journal of the [place] [employer] 2012;60:1581-98 Blood specimen (specimen) 04/20/2020 2:43 AM EDT 04/20/2020 3:12 AM EDT Narrative Resulting Agency Comment Spec In Lab Magdalene Lopez MD CHEMISTRY ORDERABLES [facility] [place] [address] * EKG 12 Lead (04/20/2020 2:33 AM EDT) Ventricular rate 168 BPM MUSE SYSTEM Atrial Rate 174 BPM MUSE SYSTEM QRS Duration 128 ms MUSE SYSTEM Q-T Interval 288 ms MUSE SYSTEM QTC Calculated (Bezet) 481 ms MUSE SYSTEM Calculated R [place] 82 degrees MUSE SYSTEM Calculated T [place] -18 degrees MUSE SYSTEM INTERPRETATION Atrial fibrillation [...] fellows interpretation Confirmed by fellow Ren Quinn ([id number]) on 04/20/2020 11:47:57 AM Confirmed by Lisbeth Cain ([id number]) on 04/21/2020 7:47:13 PM MUSE SYSTEM 04/20/2020 2:33 AM EDT 04/21/2020 7:47 PM EDT Magdalene Lopez MD ECG ORDERABLES Performing Organization Address [facility] Phone Number MUSE SYSTEM * POCT Glucose (04/20/2020 12:36 AM EDT) Glucose, POC 112 65 - 199 mg/dL [facility] Comment: Supplemental ranges: <140 mg/dL before meals <180 mg/dL all other times of the day Blood specimen (specimen) 04/20/2020 12:36 AM EDT 04/20/2020 12:36 AM EDT Magdalene Lopez MD POINT OF CARE TEST O RDERABLES Performing Organization Address [facility] de Phone Number [facility] [place] [address] * EKG 12 Lead (04/19/2020 8:23 PM EDT) Ventricular rate 100 BPM MUSE SYSTEM Atrial Rate 100 BPM MUSE SYSTEM P-R Interval 156 ms MUSE SYSTEM QRS Duration 116 ms MUSE SYSTEM Q-T Interval 368 ms MUSE SYSTEM QTC Calculated (Bezet) 474 ms MUSE SYSTEM Calculated P [place] 59 degrees MUSE SYSTEM Calculated R [place] 26 degrees MUSE SYSTEM Calculated T [place] 2 degrees MUSE SYSTEM INTERPRETATION Normal sinus rhythm Right bundle branch block Abnormal ECG No previous ECGs available Confirmed by Lisbeth Cain ([id number]) on 04/21/2020 3:47:08 PM MUSE SYSTEM 04/19/2020 8:23 PM EDT 04/21/2020 3:47 PM EDT Magdalene Lopez MD ECG ORDERABLES Performing Organization Address [facility] de Phone Number MUSE SYSTEM * POCT Glucose (04/19/2020 7:50 PM EDT) Glucose, POC 153 65 - 199 mg/dL [facility] Comment: Supplemental ranges: <140 mg/dL before meals <180 mg/dL all other times of the day Blood specimen (specimen) 04/19/2020 7:50 PM EDT 04/19/2020 7:50 PM EDT Magdalene Lopez MD POINT OF CARE TEST O ISAIAH Performing Organization Address [facility] Co de Phone Number [facility] [place] [address] * POCT Glucose (04/19/2020 5:58 PM EDT) Glucose, POC 151 65 - 199 mg/dL [facility] Comment: Supplemental ranges: <140 mg/dL before meals <180 mg/dL all other times of the day Blood specimen (specimen) 04/19/2020 5:58 PM EDT 04/19/2020 5:58 PM EDT Magdalene Lopez MD POINT OF CARE TEST O ISAIAH Performing Organization Address [facility] de Phone Number [facility] [place] [address] * Request For 2nd Read CT Abdomen [...] add comments as necessary): abd/pelvis; Sending Institution [facility]; of exam [id number]; I believe a reinterpretation [...] (please add comments as necessary): abd/pelvis;Sending Institution [facility]; Date of exam [id number]; I believe a [...] this report, please contact the number below. Magdalene Lopez MD IMG OUTSIDE INTERPRE TATION ORDERABLES * (ABNORMAL) Differential, Automated (04/19/2020 4:04 PM EDT) Neutrophil % 85.2 % [facility] Neutrophil Absolute 14.50(H) 1.70 - 6.10 x10(3)/mc L [facility] Lymph % 7.8 % [facility] Lymphocytes Abs 1.3 0.9 - 3.2 x10(3)/mc L [facility] Monocyte % 5.7 % [facility] Monocyte Abs 1.0(H) 0.3 - 0.9 x10(3)/mc L [facility] Eos % 0.2 % [facility] Eosinophils Abs 0.0 0.0 - 0.4 x10(3)/mc L [facility] Basophil % 0.2 % [facility] Baso Absolute 0.0 0.0 - 0.1 x10(3)/mc L [facility] Immature Gran % 0.90 % [facility] Comment: Immature granulocytes(IG's)percentage and absolute count will include metamyelocytes, myelocytes, and promyelocytes. Blood smears from CBCs yielding IG's will be scanned manually for concordance. If this scan disagrees with the automated IG or if promyelocytes are noted, a manual differential will be performed. Immature Gran Absolute 0.16(H) 0.00 - 0.04 x10(3)/mc L [facility] Blood specimen (specimen) 04/19/2020 4:04 PM EDT 04/19/2020 4:30 PM EDT Narrative Resulting Agency Comment Spec In Lab Magdalene Lopez MD HEMATOLOGY ORDERABLE S [facility] [place] [address] * (ABNORMAL) Hemogram (04/19/2020 4:04 PM EDT) White Blood Cell 17.0(H) 4.0 - 9.5 x10(3)/mc L [facility] Red Blood Cell 4.07 4.00 - 5.21 x10(6)/mc L [facility] Hemoglobin 11.2(L) 11.7 - 15.5 gm/dL [facility] Hematocrit 34.8(L) 35.7 - 45.8 % [facility] Mean Cell Volume 85.5 82.6 - 94.4 fL [facility] Mean Cell Hemoglobin 27.5 27.1 - 32.0 pg [facility] Mean Cell Hemoglobin Concentration 32.2 31.7 - 35.0 gm/dL [facility] Platelet 220 145 - 357 x10(3)/ L [facility] RDW Standard Deviation 47.3(H) 37.0 - 46.0 fL [facility] RDW coefficient of variation 15.1(H) 11.5 - 14.1 % [facility] Mean Platelet Volume 11.3 7.6 - 12.9 fL [facility] NRBC% auto 0.0 % [facility] NRBC Absolute 0.000 0.000 - 0.000 x10(3)/mc L [facility] Blood specimen (specimen) 04/19/2020 4:04 PM EDT 04/19/2020 4:30 PM EDT Narrative Resulting Agency Comment Spec In Lab Magdalene Lopez MD HEMATOLOGY ORDERABLE S Performing Organization Address City/[facility] Co de Phone Number [facility] [place] [address] * (ABNORMAL) Prothrombin Time (04/19/2020 4:04 PM EDT) Prothrombin Time 16.9(H) 9.4 - 12.5 sec [facility] International Normalization Ratio 1.5 [facility] Comment: An INR <2.0 indicates [...] Lab Magdalene Lopez MD HEMATOLOGY ORDERABLE S [facility] [place] [address] * (ABNORMAL) Comprehensive metabolic panel (non-fasting) (04/19/2020 4:04 PM EDT) Glucose 146 65 - 199 mg/dL [facility] Comment:Diabetes: >=200 mg/d L plus symptoms Blood Urea Nitrogen 26(H) 8 - 18 mg/dL [facility] Creatinine 1.37(H) 0.70 - 1.20 mg/dL [facility] Sodium 135 135 - 145 mmol/L [facility] Potassium 4.1 3.5 - 5.0 mmol/L [facility] Comment: Please note: ??Patients with WBC >100,000 may have falsely elevated Potassium levels. ??For accurate Potassium quantification in these patients send serum separator tube (gold top) for subsequent determinations. ??Contact the Clinical Chemistry Laboratory if there are any questions. Chloride 97(L) 98 - 107 mmol/L [facility] Carbon Dioxide 20(L) 22 - 31 mmol/L [facility] Anion Gap 18(H) 5 - 15 mmol/L [facility] Calcium 9.1 8.5 - 10.5 mg/dL [facility] Protein, Total 7.1 6.1 - 8.0 gm/dL [facility] Albumin 3.6 3.2 - 5.2 gm/dL [facility] Aspartate Aminotransferase 28 0 - 30 unit/L [facility] Alanine Aminotransferase 30 0 - 30 unit/L [facility] Alkaline Phosphatase 148(H) 35 - 105 unit/L [facility] Bilirubin, Total 2.1(H) 0.2 - 1.3 mg/dL [facility] Est Glomerular Filtration Rate 37(L) >=60 mL/min/1. 73 m?? [facility] Comment: The eGFR was calculated using the CKD-EPI equation. As with all creatinine based estimates of kidney function, eGFR values calculated with the CKD-EPI equation are not accurate in patients with acute kidney failure, extremes of body mass or the acutely ill. http://[employer]/[facility] eGFR 42(L) >=60 mL/min/1. 73 m?? [facility] Comment: The eGFR was calculated using the CKD-EPI equation. As with all creatinine based estimates of kidney function, eGFR values calculated with the CKD-EPI equation are not accurate in patients with acute kidney failure, extremes of body mass or the acutely ill. http://[employer]/[facility] Blood specimen (specimen) 04/19/2020 4:04 PM EDT 04/19/2020 4:30 PM EDT Narrative Resulting Agency Comment Spec In Lab Magdalene Lopez MD CHEMISTRY ORDERABLES Performing Organization Address City/[facility]/ZIP Co de Phone Number [facility] [place] [address] * ABORH Recheck Status (04/19/2020 3:57 PM EDT) ABORH Recheck Order Order Placed [facility] ABORH Type Recheck Complete [facility] Blood specimen (specimen) 04/19/2020 3:57 PM EDT 04/19/2020 4:23 PM EDT Narrative Resulting Agency Comment Spec In Lab Magdalene Lopez MD BLOOD BANK LAB ORDER JAMIE Performing Organization Address City/[facility]/ZIP Co de Phone Number [facility] [place] [address] * Antibody screen (04/19/2020 3:57 PM EDT) Ab Screen Interp Negative [facility] Expires at 2359 on: 04/22/2020 [facility] Blood specimen (specimen) 04/19/2020 3:57 PM EDT 04/19/2020 4:23 PM EDT Narrative Resulting Agency Comment Spec In Lab Magdalene Lopez MD BLOOD BANK LAB ORDER JAMIE [facility] [place] [address] * ABO/Rh Typing (04/19/2020 3:57 PM EDT) ABORH Type O Pos [facility] Blood specimen (specimen) 04/19/2020 3:57 PM EDT 04/19/2020 4:23 PM EDT Narrative Resulting Agency Comment Spec In Lab Magdalene Lopez MD BLOOD BANK LAB ORDER JAMIE [facility] [place] [address] documented in this encounter Visit Diagnoses Not [...] on Sun05/01/20 at 1100, Until Discontinued, Routine Given 05/08/2020 [...] Subramanian RN)1204 (Given - Provider: Fahad Muhammad RN)2050 (Given - Provider: Sandy Subramanian RN) 0412 (Given - Provider: Sandy Subramanian RN)1145 (Given - Provider: Kristi Gallegos, LYLA)2049 (Given - Provider: Tete Tanner, LYLA) 0600 (Not Given - Provider: Tete Tanner RN - Reason: Patient/family refused)1230 (Not Given - Provider: Kristi Galelgos RN - Reason: Patient/family refused) AMIOdarone (Cordarone; Pacerone) tablet 200 mg 200 mg, Oral, 2 TIMES DAILY, First dose on Sun04/22/20 at 0900, Until Discontinued, Routine 926 (Given - Provider: Fahad Muhammad RN)2049 (Given - Provider: Sandy Subramanian RN) 08 (Given - Provider: Kristi Gallegos RN)2048 (Given - Provider: Tete Tanner RN) 08 (Given - Provider: Kristi Gallegos RN) amoxicillin-clavulanate (Augmentin) 875-125 mg per tablet 1 tablet 1 tablet, Oral, 2 TIMES DAILY, First dose on Sun04/30/20 at 2100, Until Discontinued, Routine, Indication for (Active or Suspected): GI/Intra-abdominal 926 (Given - Provider: Fahad Muhammad RN)2048 (Given - Provider: Sandy Subramanian RN) 810 (Given - Provider: Kristi Gallegos RN)2048 (Given - Provider: Tete Tanner RN) 08 (Given - Provider: Kristi Gallegos RN) aspirin chewable tablet 81 mg 81 mg, Oral, DAILY, First dose on Sun05/06/20 at 1315, Until Discontinued, Routine 1505 (Given - Provider: Fahad Muhammad RN) 08 (Given - Provider: Kristi Gallegos RN) 0804 [...] of > 240 in 2 hours., Routine 165 (Given - Provider: Kristi Gallegos RN)2099 (Not Given - Provider: Tete Tanner RN - Reason: Order parameters not met) 0730 (Not Given - Provider: Tete Tanner RN - Reason: Order parameters not met)1125 (Given - Provider: Kristi Gallegos, LYLA) losartan (Cozaar) tablet 25 mg 25 mg, Oral, DAILY, First dose on 05/01/20 at 1100, Until Discontinued, Routine 926 (Given - Provider: Fahda Muhammad RN) 08 (Given - Provider: Kristi Gallegos RN) 803 (Given - Provider: Kristi Gallegos RN) melatonin [...] OR OPEN 927 (Given - Provider: Fahad Muhammad, LYLA)2049 (Given - Provider: Sandy Subramanian RN) 08 [...] Discontinued, Routine 165 (Given - Provider: Fahad Muhammad, RN) 1655 (Given - Provider: Kristi Gallegos [...] Provider: Kristi Gallegos RN - Reason: Patient/family refused)2100 (Not Given - Provider: Tete Tanner RN - Reason: Patient/family refused) 09 (Not Given - Provider: Kristi Gallegos RN - Reason: Patient/family refused) sodium chloride 0.9 % (flush) flush 5 mL 5 mL, Intravenous, 2 TIMES DAILY, First dose on Sun04/19/20 at 2100, Until Discontinued, Routine 0934 (Given - Provider: Fahad Muhammad RN)2057 (Given - Provider: Sandy Subramanian, LYLA) 811 (Given - Provider: Kristi Gallegos, RN)2050 (Given - Provider: Tete Tanner, RN) 807 (Given - Provider: Kristi Gallegos RN) sodium chloride 0.9 % (flush) flush 5 mL 5 mL, Intravenous, 2 TIMES DAILY, First dose on Sun05/02/20 at 1145, Until Discontinued, Routine 932 (Given - Provider: Fahad Muhammad RN)2057 (Given - Provider: Sandy Subramanian, LYLA) 811 (Given - Provider: Kristi Gallegos, RN)899 (Not Given - Provider: Kristi Gallegos, RN - Reason: Patient/family refused)2050 (Given - Provider: Tete Tanner, LYLA) 807 (Given - Provider: Kristi Gallegos, RN) PRN [...] Routine documented in this encounter Care Teams Operations Representative Relationship Specialty Start Date End Date Reshma Baig MD [address] [place] [address] PCP - General Family Medicine 11/08/18 06/23/21 documented as of this encounter
--- OUTSIDE RECORDS SUMMARY | 2024-04-28 15:31 | XMS_ITS | Encounter Summary ---
Author Organization [facility] [place] [address] Care Team Providers Care Assembler Leather Goods Name Role Phone Hannah Gagnon MD Primary Care Provider [phone] Encounter Details Date Type Department Care Team (Latest Contact Info) Description 10/03/2016 10:30 AM EST Laboratory [place] [address] Diabetes mellitus type 2, uncontrolled Social History [...] Hemoglobin A1c (10/03/2016 10:43 AM EST) Hemoglobin A1c 8.8(H) 4.3 - 5.6 % [facility] [...] Mellitus, Diabetes Care 2013; 36: Suppl. 1, K57-90 Estimated Average Glucose See note mg/dL [facility] [...] resources are available on the ADA website: http://[employer].com/DHMCadacalc Dago MOE, Stella J, Hernandez R, et al. ??Translating the A1C assay into estimated average glucose values. ??Diabetes Care 2008:31(8):9980-8124. Blood specimen (specimen) 10/03/2016 10:43 AM EST 10/03/2016 10:55 AM EST Narrative Resulting Agency Comment Spec In Lab Vahid Philip MD CHEMISTRY ORDERABLES [facility] [place] [place] [address] documented in this encounter Visit Diagnoses Diagnosis Diabetes mellitus type 2, uncontrolled Type II or unspecified type diabetes mellitus without mention of complication, uncontrolled documented in this encounter Care Teams Assembler Leather Goods Relationship Specialty Start Date End Date Hannah Gagnon MD [address] [place] [address] PCP - General 08/08/11 11/07/18 documented as of this encounter
--- OUTSIDE RECORDS SUMMARY | 2024-04-28 15:31 | XMS_ITS | Encounter Summary ---
Author Organization [facility] [place] [address] Care Team Providers Care Custodial Aide Name Role Phone Reshma Baig MD Primary Care Provider [phone] Encounter Details Date Type Department Care Team (Late st Contact Info) Description 04/18/2020 Ancillary Procedure [place] [address] Magdalene Lopez MD [facility] [place] [address] Social History Tobacco Use Types Packs/Day Years [...] & Pelvis (04/18/2020 12:00 AM EDT) Narrative [facility] - 04/19/2020 8:57 AM EDT This exam is auto-finalizing. It's purpose is for storage only. Magdalene Lopez MD IMG FILM LIBRARY ORD ERABLES [facility] [place], [place] documented in this encounter Visit Diagnoses Not on filedocumented in this encounter Care Teams Custodial Aide Relationship Specialty Start Date End Date Reshma Baig MD [address] [place] [address] PCP - General Family Medicine 11/08/18 06/23/21 documented as of this encounter
--- OUTSIDE RECORDS SUMMARY | 2024-04-28 15:31 | XMS_ITS | Encounter Summary ---
Author Organization [facility] [place] [address] Care Team Providers Care Poll Clerk Name Role Phone Hannah Gagnon MD Primary Care Provider [phone] Reason for Visit * Reason Onset Date Comments Medication Refill 12/10/2017 Encounter Details Date Type Department Care Team (Late st Contact Info) Description 12/10/2017 Refill [place] [address] [facility]ave [facility] [place] [address] Social History Tobacco Use Types Packs/Day Years [...] on filedocumented in this encounter Care Teams Poll Clerk Relationship Specialty Start Date End Date Hannah Gagnon MD [address] [place] [address] PCP - General 08/08/11 11/07/18 documented as of this encounter
--- OUTSIDE RECORDS SUMMARY | 2024-04-28 15:31 | XMS_ITS | Encounter Summary ---
Author Organization [facility] [place] [address] Care Team Providers Care Civil Estimator Name Role Phone Reshma Baig MD Primary Care Provider [phone] Encounter Details Date Type Department Care Team (Late st Contact Info) Description 02/10/2019 Refill Dermatology at [address] [place] [address] Meera Castro, CONCILIATOR Social History Tobacco Use Types Packs/Day Years [...] on filedocumented in this encounter Care Teams Civil Estimator Relationship Specialty Start Date End Date Reshma Baig MD [address] [place] [address] PCP - General Family Medicine 11/08/18 06/23/21 documented as of this encounter
--- OUTSIDE RECORDS SUMMARY | 2024-04-28 15:31 | XMS_ITS | Encounter Summary ---
Author Organization [facility] [place] [place] [address] Care Team Providers Care Creel Hand Name Role Phone Regis Muller MD Primary Care Provider [phone] Reason for Visit * Reason Comments Medication Refill Encounter Details Date Type Department Care Team (Late st Contact Info) Description 05/07/2015 Ref[place] [address] [facility] [place] [address] Social History Tobacco Use Types Packs/Day Years [...] documented as of this encounter Care Teams Creel Hand Relationship Specialty Start Date End Date Regis Muller MD [address] [place] [address] PCP - General Emergency Medicine 06/24/21 documented as of this encounter
--- OUTSIDE RECORDS SUMMARY | 2024-04-28 15:31 | XMS_ITS | Encounter Summary ---
Author Organization [facility] [place] [address] Care Team Providers Care Sexer Name Role Phone Hannah Gagnon MD Primary Care Provider [phone] Reason for Visit * Reason Onset Date Comments Medication Refill 10/25/2017 Encounter Details Date Type Department Care Team (Late st Contact Info) Description 10/25/2017 Ref[place] [address] [facility] [place] [address] Social History Tobacco Use Types Packs/Day Years [...] on filedocumented in this encounter Care Teams Sexer Relationship Specialty Start Date End Date Hannah Gagnon MD [address] [place] [address] PCP - General 08/08/11 11/07/18 documented as of this encounter
--- OUTSIDE RECORDS SUMMARY | 2024-04-28 15:31 | XMS_ITS | Encounter Summary ---
Author Organization [facility] Address [facility] [place] [address] Care Team Providers Care Auto Salvage Worker Name Role Phone Hannah Gagnon MD Primary Care Provider [phone] Reason for Visit * Reason Comments Diabetes Encounter Details Date Type Department Care Team (Late st Contact Info) Description 06/22/2015 3:00 PM EDT Office Visit [place] [address] Alissa Malave APRN [facility] [place] [address] Diabetes mellitus type 2, uncontrolled; Hyperlipidemia Social [...] * Patient Instructions* Alissa Malave APRN - 06/22/2015 4:06 PM EDT Stop [...] care. Breakfast is either oatmeal or an Chadian Muffin. Lunch is a sandwich. Evening meal varies, usually protein and vegetable. She has been eating more salads. PHYSICAL ACTIVITY: She swims two times a week and she walks. She works nights. 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 REVIEW OF SYSTEMS: Depression and Mood: [...] office visit with 38 minutes spent counseling [id number] with the patient in the management of [...] Hemoglobin A1c 8.8(H) 4.3 - 5.6 % [facility] Comment: Reference Range: 4.3 - [...] S67-74 Estimated Average Glucose See note mg/dL [facility] Comment: Estimated Average Glucose not [...] resources are available on the ADA website: http://[employer].com/DHMCadacalc Dago MOE, Stella J, Hernandez R, et al. ??Translating the A1C assay into estimated average glucose values. ??Diabetes Care 2008:31(8):5106-5998. Blood specimen (specimen) 10/03/2016 10:43 AM EST 10/03/2016 10:55 AM EST Narrative Resulting Agency Comment Spec In Lab Vahid Philip MD CHEMISTRY ORDERABLES [facility] [place] [address] documented in this encounter Visit Diagnoses Diagnosis Diabetes mellitus type 2, uncontrolled Type II or unspecified type diabetes mellitus without mention of complication, uncontrolled Hyperlipidemia Other and unspecified hyperlipidemia documented in this encounter Care Teams Auto Salvage Worker Relationship Specialty Start Date End Date Hannah Gagnon MD [address] [place] [address] PCP - General 08/08/11 11/07/18 documented as of this encounter
--- OUTSIDE RECORDS SUMMARY | 2024-04-28 15:31 | XMS_ITS | Encounter Summary ---
Author Organization [place] [address] Care Team Providers Care Director Student Union Name Role Phone Hannah Gagnon MD Primary Care Provider [phone] Reason for Visit * Reason Onset Date Comments Prior Authorization 02/28/2017 Encounter Details Date Type Department Care Team ([facility] st Contact Info) Description 02/28/2017 Telephone [place] [address] Alexa Trujillo Prior Authorization Social History Tobacco [...] DM Health plan: [employer] ([employer]) Authorizing account representative name: TODD Faxed to health plan on: 02/28/17 Health plan decision: APPROVED Quantity approved: Authorization number: [id number] Start date: 02/28/17 End date: 02/28/20 documented in this encounter Plan of Treatment Not on file documented as of this encounter Visit Diagnoses Not on filedocumented in this encounter Care Teams Director Student Union Relationship Specialty Start Date End Date Hannah Gagnon MD [address] [place] [address] PCP - General 08/08/11 11/07/18 documented as of this encounter
--- OUTSIDE RECORDS SUMMARY | 2024-04-28 15:31 | XMS_ITS | Encounter Summary ---
[place] [address] Care Team Providers Care Contract Loader Name Role Phone Hannah Gagnon MD Primary Care Provider [phone] Encounter Details Date Type Department Care Team (Latest Contact Info) Description 02/28/2017 10:00 AM EDT Laboratory Appointment Lab [address] [address] Uncontrolled type 2 diabetes mellitus without complication, [...] Urine 10 0 - 29 mcg/mg Cr [facility] Comment: Reference Ranges: <30 [...] 2, 357? 362 Albumin, Urine 7.3 mg/L [facility] Creatinine, Urine 76 mg/dL [facility] Urine specimen (specimen) 02/28/2017 10:33 AM EDT 02/28/2017 10:54 AM EDT Narrative Resulting Agency Comment Spec In Lab Vahid Philip MD URINE ORDERABLES Performing Organization Address City/[facility]/ZIP Co de Phone Number [facility] [place] [address] * LDL Cholesterol, Direct (02/28/2017 10:18 AM EDT) LDL Cholesterol, Direct 73 <=190 mg/dL [facility] Blood specimen (specimen) 02/28/2017 10:18 AM EDT 02/28/2017 10:25 AM EDT Narrative Resulting Agency Comment Spec In Lab Vahid Philip MD CHEMISTRY ORDERABLES Performing Organization Address City/[facility]/ZIP Co de Phone Number [facility] [place] [address] * (ABNORMAL) Hemoglobin A1c (02/28/2017 10:18 AM EDT) Hemoglobin A1c 10.0(H) 4.3 - 5.6 % [facility] Comment: Reference Range: 4.3 [...] Mellitus, Diabetes Care 2013; 36: Suppl. 1, S67-87 Estimated Average Glucose See note mg/dL [facility] Comment: Estimated Average Glucose [...] into estimated average glucose values. ??Diabetes Care 2008:31(8):0765-8661. Blood specimen (specimen) 02/28/2017 10:18 AM EDT 02/28/2017 10:25 AM EDT Narrative Resulting Agency Comment Spec In Lab Vahid Philip MD [place] [address] documented in this encounter Visit Diagnoses Diagnosis Uncontrolled type 2 diabetes mellitus without complication, with long-term current use of insulin documented in this encounter Care Teams Contract Loader Relationship Specialty Start Date End Date Hannah Gagnon MD [address] [place] [address] PCP - General 08/08/11 11/07/18 documented as of this encounter
--- OUTSIDE RECORDS SUMMARY | 2024-04-28 15:31 | XMS_ITS | Encounter Summary ---
Author Organization [facility] Address [facility] [place] [address] Care Team Providers Care Physical Biochemist Name Role Phone Reshma Baig MD Primary Care Provider [phone] Reason for Visit * Auth/Cert Specialty Diagnoses / Procedures Referred By Malini carlson Referred To Contact Diagnoses Cholecystitis Cholecystitis Procedures EMERGENCY IPI Referral ID Status Reason Start Date Expiration Date Visits Re quested Visits Authorized [id number] 1 1 Encounter Details Date Type Department Care Team (Late st Contact Info) Description 04/21/2020 10:04 AM EDT - 04/21/2020 11:04 AM [place] [address] Esau Rahman MD [facility] [place] [address] CARDIAC CATHETERIZATION Social History Tobacco Use Types [...] Shannan Chaudhary Patient Age: 79 y.o. Language: Emirati Race: White Ethnicity: Not nor Admit date: [...] in the setting of melena and esophagitis, [id number] (11% risk) - Amiodarone 200mg BID for a total of 1 month (from 04/22 to 05/22); close cardiology follow-up scheduled for 05/18 - GI: EGD completed; recommending colonoscopy as outpatient Inpatient Provider Contact Information: For questions regarding this document or issues relating to this hospitalization on the Medical Service, please contact your inpatient physician through the [facility] Ice Bag Assembler . Issues afterhours and on weekends will [...] with valve area 0.8 (records unavailable in [facility] but reviewed by [facility] referring MD) who is admitted in [...] the subsequent days and she presented to [facility] ED yesterday (Sunday). There her tBili was noted to be 2.2 and is stable at 2.1 here. Patient transferred from [facility] on 04/19 for cardiac preop eval [...] Dr. Patel, patient was taken to the photo lab manager for RHC and evaluation. ?? In the photo lab manager she was found to have two vessel [...] cardiology follow-up scheduled with Dr. Galindo in [facility] on May 18 at 1pm. Will need discharge summary faxed to the clinic at [phone]. #Esophagitis #Melena #Acute Blood loss anemia Ms. [...] Quantity: 300 each Refills: 3 Blood-Glucose Meter [facility] One Touch Ultra Brand, 250.02. Quantity: 1 [...] each Quantity: 400 each Refills: 3 lancets [facility] Use twice daily or as needed. Quantity: [...] Time Provider Department Center 05/19/2020 10:30 AM [facility] IR ROOM 3 [facility] Rad 06/03/2020 10:10 AM [facility] ROOM 4 [facility] Rad 06/03/2020 2:00 PM Hong Rosenthal MD [facility] SURG [facility] You have a follow-up with cardiology scheduled for May [address] Galindo in [facility]. Your Primary Care Provider: Reshma Baig MD [phone] For questions regarding this document or issues relating to this hospitalization on the Medical Service, please contact your inpatient physician through the [facility] Ice Bag Assembler . Issues afterhours and on weekends will [...] or any other surface. Always put a teacher of the sight impaired on the end to keep clean. 11. If you drainage bags starts to have an odor, you can clean the bag after removing it from the tube. Turn the stopcock to off. Put on a teacher of the sight impaired to the end of the stopcock to [...] is during regular office hours, please call [phone]. If it is after regular office hours, or on weekends or holidays, please call [phone] and ask to speak to the Observer Helper solution make up operator for Interventional Radiology. XX You have received [...] is during regular office hours, please call [phone]. If it is after regular office hours, or on weekends or holidays, please call [phone] and ask to speak to the Observer Helper solution make up operator for Interventional Radiology. XX You have received [...] Provider Department Dept Phone 06/03/2020 10:10 AM [facility] IR ROOM 4 Radiology at [facility] Arrive at: 3Z INTERVENTIONAL RADIOLOGY [phone] Please expect a call from a radiology nurse within 3 days of your exam, you will need to follow theinstructions given at that time. 06/03/2020 2:00 PM Hong Rosenthal MD General Surgery at [facility] Arrive at: Tankage Grinder Area 4L [phone] 06/18/2020 3:00 PM Esau Rahman MD Cardiology at [facility] Arrive at: [facility] 4A [phone] Future Orders Complete By Expires IR Drain Check/Change/Remove [[id number] Custom] 05/19/2020 07/28/2020 Process Instructions: Scheduling Instructions: Comments: Questions: Where will study be performed?: [facility] Radiology Reason for exam and clinical history: [...] ?: Aspirin Clopidogrel Referral to Cardiac Rehab [[id number] Custom] As directed Process Instructions: If no progress note charted, please enter Clinical details in comments. Scheduling Instructions: Questions: My question or request is: NSTEMI. Cardiac rehab at [facility] Referral to General Surgery [[id number] Custom] As directed Process Instructions: If no progress note charted, please enter Clinical details in comments. If you are requesting vascular access please answer the VAD questions Due to the OR limitations at the [facility], if you are considering surgery for this patient, and their BMI is greater than 50, please refer to [facility] (or a division other than [facility]). Scheduling Instructions: Questions: Are you seeking Vascular Access?: No My question or request is: Follow-up to discuss cholecystectomy. Patient is s/p perc arron tube placement, has tube study scheduled with IR for 06/03, needs appointment on this day. Referral to Home Health - at DISCHARGE [CEW0958 CPT(R)] As directed Process Instructions: Scheduling Instructions: [...] Nurse Practitioner, Clinical Nurse Specialist or Physician Battery Tester And Repairer who is working directly with them, had [...] appropriate for home health services. Patient Location: [address] [place] [address] (home) Telephone Information: HOME Health Agency: [facility] PHONE: [phone] FAX: [phone] RN: Assess cardiopulmonary assessment, vital signs, medication [...] patient's PCP: Reshma Baig MD [address] [place] [id number] Questions: Agency name and contact information: [facility] Patient location post discharge: home What services [...] or any other surface. Always put a teacher of the sight impaired on the end to keep clean. 11. If you drainage bags starts to have an odor, you can clean the bag after removing it from the tube. Turn the stopcock to off. Put on a teacher of the sight impaired to the end of the stopcock to [...] is during regular office hours, please call [phone]. If it is after regular office hours, or on weekends or holidays, please call [phone] and ask to speak to the Observer Helper solution make up operator for Interventional Radiology. XX You have received [...] is during regular office hours, please call [phone]. If it is after regular office hours, or on weekends or holidays, please call [phone] and ask to speak to the Observer Helper solution make up operator for Interventional Radiology. XX You have received [...] Time Provider Department Center 05/19/2020 10:30 AM [facility] IR ROOM 3 IR [facility] Rad 06/03/2020 10:10 AM [facility] IR ROOM 4 [facility] Rad 06/03/2020 2:00 PM Hong Rosenthal MD [facility] SURG [facility] You have a follow-up with cardiology scheduled for May [address] Galindo in [facility]. Your Primary Care Provider: Reshma Baig MD [phone] For questions regarding this document or issues relating to this hospitalization on the Medical Service, please contact your inpatient physician through the [facility] Ice Bag Assembler . Issues afterhours and on weekends will [...] spent >30 minutes (Day of Discharge Code 26459) involved in the final examination of the [...] main entrance with her son to home. [facility] planned for home care. Patient educated on [...] drain care. Questions answered. Medications sent to [facility] in [facility]. * Davon Leung MD - 05/08/2020 7:56 AM EDT [facility] Medicine - Red Team Inpatient Progress [...] Collection; Culture 04/28 Body Fluid Culture, Aerobic [[id number]] (Abnormal) Collected: 04/28/20 1000 Lab Status: Preliminary [...] Routine Diet: Daily Healthy Menu Choices/Cardiac diet ([facility]-Diet) CHO cont DVT ppx: SCDs Fluids: PO Access: PIV Dispo: Home today; with VNA Code: Full Code Davon Leung MD 05/08/2020 PGY-2, Internal Medicine Red Team - Pager [phone] Associated attestation - Kota Gonzales MD - [...] (records unavailable in [facility] but reviewed by [facility] referring MD) who was admitted in [...] w/ severe (valve area 0.8) transferred to [facility] with acute cholecystitis. Unable to performcholecystectomy 2/2 [...] General surgery will sign off. Please page [phone] with any questions or concerns. Jeevan Black MD General Surgery 05/07/2020 * Wilner Esparza MD - 05/07/2020 10:16 AM EDT [facility] Medicine - Red Team Inpatient Progress [...] Collection; Culture 04/28 Body Fluid Culture, Aerobic [[id number]] (Abnormal) Collected: 04/28/20 1000 Lab Status: Preliminary [...] remains in normal sinus on metoprolol and [id number] BID (end 05/22). AC plan to DAPT [...] Routine Diet: Daily Healthy Menu Choices/Cardiac diet ([facility]-Diet) CHO cont DVT ppx: SCDs Fluids: PO Access: PIV Dispo: pending Code: Full Code Wilner Esparza MD 05/07/2020 PGY-1, Internal Medicine Red Team - Pager [phone] Associated attestation - Milagros Velazquez MD - [...] two midnights or is on the [facility] inpatient only procedure list (status C) due [...] Esparza MD - 05/06/2020 7:48 AM EDT [facility] Medicine - Red Team Inpatient Progress [...] Collection; Culture 04/28 Body Fluid Culture, Aerobic [[id number]] (Abnormal) Collected: 04/28/20 1000 Lab Status: Preliminary [...] including the SIS drain. Will contact case finishing machine adjuster during IDR regarding assistance for paying bills [...] Routine Diet: Daily Healthy Menu Choices/Cardiac diet ([facility]-Diet) CHO cont DVT ppx: SCDs Fluids: PO Access: PIV Dispo: pending Code: Full Code Wilner Esparza MD 05/06/2020 PGY-1, Internal Medicine Red Team - Pager [phone] Associated attestation - Milagros Velazquez MD - [...] two midnights or is on the [facility] inpatient only procedure list (status C) due [...] (records unavailable in [facility] but reviewed by [facility] referring MD) who was admitted in [...] w/ severe (valve area 0.8) transferred to [facility] with acute cholecystitis. Unable to performcholecystectomy 2/2 [...] Esparza MD - 05/05/2020 8:51 AM EDT [facility] Medicine - Red Team Inpatient Progress [...] Collection; Culture 04/28 Body Fluid Culture, Aerobic [[id number]] (Abnormal) Collected: 04/28/20 1000 Lab Status: Preliminary [...] Routine Diet: Daily Healthy Menu Choices/Cardiac diet ([facility]-Diet) CHO cont DVT ppx: SCDs Fluids: PO Access: PIV Dispo: pending Code: Full Code Wilner Esparza MD 05/05/2020 PGY-1, Internal Medicine Red Team - Pager [phone] * Brooke Walters RN - 05/04/2020 1:03 [...] she is independent and active. 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 Is driving and able to walk good distances.? Patient is insured through: Primary Insurance: [employer] [place] Payor: [employer] [place] / Plan[place] / Product Type: *No Product type* / Secondary Insurance: N/A Prescription Coverage: yes ?? Plan for discharge is: Services Anticipated at Discharge: home health care - orders routed/pended with: ?? [facility] ?? PHONE: [phone] FAX: [phone] ?? Barriers to discharge: no barriers for a safe/appropriate discharge that are identified at this time. ?? Plan going forward: CM will continue to follow and assist with discharge planning and coordination of care as indicated. ?? * Wilner Esparza MD - 05/04/2020 8:48 AM EDT [facility] Medicine - Red Team Inpatient Progress [...] Collection; Culture 04/28 Body Fluid Culture, Aerobic [[id number]] (Abnormal) Collected: 04/28/20 1000 Lab Status: Preliminary [...] Routine Diet: Daily Healthy Menu Choices/Cardiac diet ([facility]-Diet) CHO cont DVT ppx: SCDs Fluids: PO Access: PIV Dispo: pending Code: Full Code Wilner Esparza MD 05/04/2020 PGY-1, Internal Medicine Red Team - Pager [phone] Associated attestation - Milagros eVlazquez MD - 05/04/2020 9:11 PM EDT Attending [...] two midnights or is on the [facility] inpatient only procedure list (status C) due [...] (records unavailable in [facility] but reviewed by [facility] referring MD) who was admitted in [...] w/ severe (valve area 0.8) transferred to [facility] with acute cholecystitis. Unable to performcholecystectomy 2/2 [...] (records unavailable in [facility] but reviewed by [facility] referring MD) who was admitted in [...] w/ severe (valve area 0.8) transferred to [facility] with acute cholecystitis. Unable to performcholecystectomy 2/2 [...] Esparza MD - 05/03/2020 9:41 AM EDT [facility] Medicine - Red Team Inpatient Progress [...] Collection; Culture 04/28 Body Fluid Culture, Aerobic [[id number]] (Abnormal) Collected: 04/28/20 1000 Lab Status: Preliminary [...] Routine Diet: Daily Healthy Menu Choices/Cardiac diet ([facility]-Diet) CHO cont DVT prophylaxis: apixaban, ASA, plavix Fluids: PO Access: PIV Dispo: pending Code: Full Code Wilner Esparza MD 05/03/2020 PGY-1, Internal Medicine Red Team - Pager [phone] Associated attestation - Milagros Velazquez MD - [...] two midnights or is on the [facility] inpatient only procedure list (status C) due [...] Esparza MD - 05/02/2020 11:15 AM EDT [facility] Medicine - Red Team Inpatient Progress [...] Collection; Culture 04/28 Body Fluid Culture, Aerobic [[id number]] (Abnormal) Collected: 04/28/20 1000 Lab Status: Preliminary [...] Routine Diet: Daily Healthy Menu Choices/Cardiac diet ([facility]-Diet) CHO cont DVT prophylaxis: apixaban, ASA, plavix Fluids: PO Access: PIV Dispo: pending Code: Full Code Wilner Esparza MD 05/02/2020 PGY-1, Internal Medicine Red Team - Pager [phone] Associated attestation - Milagros Velazquez MD - [...] two midnights or is on the [facility] inpatient only procedure list (status C) due [...] (records unavailable in [facility] but reviewed by [facility] referring MD) who was admitted in [...] w/ severe (valve area 0.8) transferred to [facility] with acute cholecystitis. Unable to performcholecystectomy 2/2 [...] weeks. Please do not hesitate to page [phone] with any questions or concerns. Jeevan Black [...] Orders Diet Daily Healthy Menu Choices/Cardiac diet ([facility]-Diet) 60/60/75 CHO counting level 2 Frequency: Effective [...] consulted in the interim. SULEMAN Lopes Pager: [phone] * Davon Leung MD - 05/01/2020 8:21 AM EDT [facility] Medicine - Red Team Inpatient Progress [...] on metoprolol and amiodarone - Lasix and Bainbridge held since 9/2 for FORREST - No [...] Collection; Culture 04/28 Body Fluid Culture, Aerobic [[id number]] (Abnormal) Collected: 04/28/20 1000 Lab Status: Preliminary [...] though still overall mild, appears pre-renal even [id number] LR yesterday. Will give 500cc gently today. [...] her on Plavix and apixaban. Will contact [facility] moving forward with with this [...] Routine Diet: Daily Healthy Menu Choices/Cardiac diet ([facility]-Diet) CHO cont DVT prophylaxis: apixaban, ASA, plavix Fluids: PO Access: PIV Dispo: pending Code: Full Code Davon Leung MD 05/01/2020 PGY-2, Internal Medicine Red Team - Pager [phone] Associated attestation - Milagros Velazquez MD - [...] two midnights or is on the [facility] inpatient only procedure list (status C) due [...] monitoring]: Purposeful rounding, room near nurses station, [facility]. Patient-specific fall prevention interventions for sensory [...] Avila, DO Infectious Diseases Fellow- PGY4 Pager: [phone] 04/30/2020 1:37 PM Associated attestation - Harris [...] Discharge: None Electronically signed: Hong Zavala RN, Press Machine Operator Pgr: [phone] 04/30/2020 10:23 AM * Wilner Esparza MD - 04/30/2020 8:08 AM EDT [facility] Medicine - Red Team Inpatient Progress [...] though still overall mild, appears pre-renal even [id number] LR yesterday. Will give 500cc gently today. [...] her on Plavix and apixaban. Will contact [facility] moving forward with with this [...] Routine Diet: Daily Healthy Menu Choices/Cardiac diet ([facility]-Diet) CHO cont DVT prophylaxis: apixaban Fluids: PO Access: PIV Dispo: pending Code: Full Code Wilner Esparza MD 04/30/2020 PGY-1, Internal Medicine Red Team - Pager [phone] Associated attestation - Dale Gonzáles MD - [...] two midnights or is on the [facility] inpatient only procedure list (status C) due [...] (records unavailable in [facility] but reviewed by [facility] referring MD) who was admitted in [...] w/ severe (valve area 0.8) transferred to [facility] with acute cholecystitis. Unable to performcholecystectomy 2/2 [...] (records unavailable in [facility] but reviewed by [facility] referring MD) who was admitted in [...] w/ severe (valve area 0.8) transferred to [facility] with acute cholecystitis. Unable to performcholecystectomy 2/2 [...] Esparza MD - 04/29/2020 8:21 AM EDT [facility] - Red Team Inpatient Progress Note [...] her on Plavix and apixaban. Will contact [facility] moving forward with with this [...] Routine Diet: Daily Healthy Menu Choices/Cardiac diet ([facility]-Diet) CHO cont DVT prophylaxis: apixaban Fluids: PO Access: PIV Dispo: transfer to 4600 Code: Full Code Wilner Esparza MD 04/29/2020 PGY-1, Internal Medicine Red Team - Pager [phone] Associated attestation - Dale Gonzáles MD - [...] two midnights or is on the [facility] inpatient only procedure list (status C) due [...] she is independent and active. 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 Is driving and able to walk good distances. Patient is insured through: Primary Insurance: [employer] [place] Payor: [employer] [place] / Plan: [facility] [place] / Product Type: *No Product type* / Secondary Insurance: N/A Prescription Coverage: yes Plan for discharge is: Services Anticipated at Discharge: home health care - orders routed/pended [facility]. PHONE: [phone] FAX: [phone] Barriers to discharge: as listed above Plan going forward: CM will continue to follow and assist with discharge planning and coordination of care as indicated. Chioma Vann RN, MSN Press Machine Operator - Cardiology Office of Care Management Pager: [phone] Work * Bobbi Fernandez RN - 04/28/2020 8:28 AM EDT [facility] Name: SHANNAN CHAUDHARY Date of : 1940 AGE: 79 y.o. Address: [address] [place] [address] (home) Mobile: Telephone Information: Referring Provider: Bethany [...] (records unavailable in [facility] but reviewed by [facility] referring MD) who was admitted in [...] w/ severe (valve area 0.8) transferred to [facility] with acute cholecystitis. Unable to performcholecystectomy 2/2 [...] AF who presented as a transfer from [facility] for acute cholecystitis with a course [...] Internal Medicine PGY1 Cardiology M1-S2 Team Pager [phone] Associated attestation - Abiodun Chun MD - [...] who is concerned about showering at home. [facility] has been pended for RN only. The orders have been signed, so I am unable to adjust them. I have asked Dr Ruma garcia who signed them to add choly tube care and OT to assess home safety, ADL's, IADL's and include HEMP FIBER TAKER OFF if appropriate. Will be transported via private car with family. Patient is insured through [employer], however states she has Medicare A secondary-Due [...] (records unavailable in eDH but reviewed by [facility] referring MD) who was admitted in [...] w/ severe (valve area 0.8) transferred to [facility] with acute cholecystitis. Unable to performcholecystectomy 2/2 recent PCI with two stents requiring DAPT x 6 weeks. Now s/p cholecystostomy tube and appears to be recovering well. She is tolerating a regular diet and denies pain in the RUQ or anywhere else. Her WBC has increased today to 15. Recommending CT abdomen and pelvis with contrast.We will continue to follow. Please page [phone] with any questions or concerns. Jeevan Black [...] Orders Diet Daily Healthy Menu Choices/Cardiac diet ([facility]-Diet) Frequency: Effective Now Number of Occurrences: Until [...] consulted in the interim. SULEMAN Lopes Pager: [phone] * Julianna Hendrix MD - 04/27/2020 7:41 [...] AF who presented as a transfer from [facility] for acute cholecystitis with a course [...] Misc Diet: Daily Healthy Menu Choices/Cardiac diet ([facility]-Diet) DVT ppx: SQH GI ppx: Protonix PT/OT consult ?? Code Status:Attempt Cardiopulmonary Resuscitation - Inpatient ?? Dispo- floor Julianna Hendrix MD Internal Medicine PGY1 Cardiology M1-S2 Team Pager [phone] Associated attestation - Abiodun Chun MD - [...] (records unavailable in eDH but reviewed by [facility] referring MD) who was admitted in [...] w/ severe (valve area 0.8) transferred to [facility] with acute cholecystitis. Unable to performcholecystectomy 2/2 [...] We will continue to follow. Please page [phone] with any questions or concerns. Jeevan Black [...] for discharge to home with V[facility] services. [facility]. PHONE: [phone] FAX: [phone] Will be transported via [employer]. This plan was formulated with input from patient, family and team. All are in agreement with plan. Chioma Vann RN, MSN Press Machine Operator - Cardiology Office of Care Management Pager: [phone] Work * Julianna Hendrix MD - 04/26/2020 [...] AF [facility] [facility]OSPITAL for acute cholecystitis with a course [...] Misc Diet: Daily Healthy Menu Choices/Cardiac diet ([facility]-Diet) DVT ppx: SQH GI ppx: Protonix PT/OT consult ?? Code Status:Attempt Cardiopulmonary Resuscitation - Inpatient ?? Dispo- floor Julianna Hendrix MD Internal Medicine PGY1 Cardiology M1-S2 Team Pager [phone] Associated attestation - Abiodun Chun MD - [...] (records unavailable in eDH but reviewed by [facility] referring MD) who was admitted in [...] w/ severe (valve area 0.8) transferred to [facility] with acute cholecystitis. Unable to performcholecystectomy 2/2 [...] of AF who presented??as a transfer from [facility] for acute cholecystitis with a course complicated by afib with RVR and hypotension now transferring to theCardiology service due to??concern for severe (OCRINE 0.8 at OSH)??with consideration of direct intervention. Patient with the following active problems: Past Medical History: Diagnosis Date ??? Diabetes ??? Severe aortic stenosis Past Surgical History: Procedure Laterality Date ??? HYSTERECTOMY, VAGINAL ??? IR CHOLECYSTOSTOMY TUBE PLACEMENT 04/22/2020 IR Cholecystostomy Tube Placement 04/22/2020 Jos Collins, DO [facility] INTERVENTIONL RAD Social History: Home set-up: lives alone in a 3 story home but is able to stay on the 1st floor, laundry is in the basement but granddaughter can help. 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 Equipment at home: quad walker, and cane. 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 Pt limited this date by [...] Minutes, Physical Therapy: 29(evaluation ) Isi Kingston, [facility] Pager: [phone] Physical Therapy Inpatient Rehabilitation Department Associated attestation - Esau Caicedo PT - 04/25/2020 2:42 PM EDT Patient status, treatment interventions, and goals discussed with student. I am in agreement with all details and associated flowsheet rows as documented and was present for all aspects of the patient treatment session. Treatment session performed and note written with this property underwriter. Please do not hesitate to contact this property underwriter with any questions, thank you. Esau Isaac, PT Pager #[phone] Inpatient Rehabilitation * Hong Levi MD - [...] AF who presented as a transfer from [facility] for acute cholecystitis with a course [...] Misc Diet: Daily Healthy Menu Choices/Cardiac diet ([facility]-Diet) DVT ppx: SQH GI ppx: Protonix PT/OT consult ?? Code Status:Attempt Cardiopulmonary Resuscitation - Inpatient ?? Dispo- floor, possible discharge tomorrow Hong Levi MD Internal Medicine PGY3 Cardiology M1-S2 Team Pager [phone] Associated attestation - Abiodun Chun MD - [...] No resolved problems to display. ID: Ms. Chaduhary is a 79F with a PMH of HTN, HLD, DM, possible history of AF who presented as a transfer from [facility] for acute cholecystitis with a course [...] tomorrow Julianna Hendrix MD PGY-1 Team Pager [phone] Associated attestation - Abiodun Chun MD - [...] 04/19/2020 Diet: Daily Healthy Menu Choices/Cardiac diet ([facility]-Diet) Code: Attempt Cardiopulmonary Resuscitation - Inpatient Room: CV21/CV21-A ID: Shannan Chaudhary ( ) is a 79 y.o. female with a history of HTN, HLD, severe and possible afib, who was transferred from [facility] to the SICU for acute cholecystitis. Her course was complicated by NSTEMI, afib with RVR causing hypotension in the setting of , hypoxic respiratory failure with increasing O2 requirements which prompted heart cath and transfer to [facility] care. Operative Procedures: 04/21/2020 Procedure(s): CARDIAC [...] add comments as necessary): abd/pelvis; Sending Institution [facility]; Date of exam 20200418; I believe [...] Surgery -Diet: Daily Healthy Menu Choices/Cardiac diet ([facility]-Diet). /FEN: Keep roque, monitor UOP. K of [...] (records unavailable in eDH but reviewed by [facility] referring MD) who is admitted in [...] w/ severe (valve area 0.8) transferred to [facility] with acute cholecystitis. She has undergonePCI of [...] F with DM and HTN--- txf from [facility] with cholecystitis, AF with RVR, hypoxia, and concern for severe . Cath showed not severe, high grade ostial RCA stented, AF converted spontaneously ??? Atrial fibrillation--- paroxysmal ??? Cholecystitis Resolved Hospital Problems No resolved problems to display. Active Hospital Problems Diagnosis ??? 79 yo F with DM and HTN--- txf from [facility] with cholecystitis, AF with RVR, hypoxia, and concern for severe . Cath showed not severe, high grade ostial RCA stented, AF converted spontaneously ??? Atrial fibrillation--- paroxysmal ??? Cholecystitis Resolved Hospital Problems No resolved problems to display. ID: Ms. Chaudhary is a 79F with a PMH of HTN, HLD, DM, possible history of AF who presented as a transfer from [facility] for acute cholecystitis with a course [...] floor Julianna Hendrix MD PGY-1 Team Pager [phone] Associated attestation - Abiodun Chun MD - [...] (records unavailable in eDH but reviewed by [facility] referring MD) who is admitted in [...] w/ severe (valve area 0.8) transferred to [facility] with acute cholecystitis. She has undergonePCI of [...] and possible afib, who was transferred from [facility] to the SICU for acute cholecystitis. Her course was complicated by NSTEMI, afib with RVR causing hypotension in the setting of , hypoxic respiratory failure with increasing O2 requirements which prompted heart cath and transfer to [facility] care. Operative Procedures: 04/21/2020 Procedure(s): CARDIAC [...] add comments as necessary): abd/pelvis; Sending Institution [facility]; Date of exam 20200418; I believe [...] to the planned procedure. Hand Hygiene: The administrative job titles did perform hand hygiene prior to arterial [...] DO - 04/22/2020 8:10 AM EDT Interventional Counselor At Law Note 79 year old female with moderate [...] consult in place. Sandy Camargo DO Interventional Counselor At Law * Darwin Connors MD - 04/22/2020 7:12 AM EDT Inpatient Cardiology Progress Note Hospital Day 3 days Active Hospital Problems Diagnosis ??? 79 yo F with DM and HTN--- txf from [facility] with cholecystitis, AF with RVR, hypoxia, and concern for severe . Cath showed not severe, high grade ostial RCA stented, AF converted spontaneously ??? Atrial fibrillation--- paroxysmal ??? Cholecystitis Resolved Hospital Problems No resolved problems to display. Active Hospital Problems Diagnosis ??? 79 yo F with DM and HTN--- txf from [facility] with cholecystitis, AF with RVR, hypoxia, and concern for severe . Cath showed not severe, high grade ostial RCA stented, AF converted spontaneously ??? Atrial fibrillation--- paroxysmal ??? Cholecystitis Resolved Hospital Problems No resolved problems to display. ID: Ms. Chaudhary is a 79F with a PMH of HTN, HLD, DM, possible history of AF who presented as a transfer from [facility] for acute cholecystitis with a course [...] care Julianna Hendrix MD PGY-1 Team Pager [phone] Cardiology Attending Note I have seen and [...] (cmH20): 6 FiO2 (%): (S) 100 %(for photo lab manager procedure) NIV Measurements: Resp: 23 Mve: 24.8 [...] Weaned FiO2 to 35%. Brought pt to skill labor @ 1530 on NRB. Placed on BiPAP [...] Events: TTE yesterday, decision to go to photo lab manager today with surgical plan pending outcome Assessment, [...] -- No results for input(s): PHART, PO2ART, FDE6RGF, LACTATEART, BEART in the last 72 hours. [...] -- No results for input(s): PHART, PO2ART, ZCI9JAN, LACTATEART, BEART in the last 72 hours. [...] (records unavailable in eDH but reviewed by [facility] referring MD) who is admitted in [...] w/ severe (valve area 0.8) transferred to [facility] with acute cholecystitis undergoing cardiacwork-up/optimization for potential [...] all questions were answered. [facility] input/assistance greatly appreciated Hong [...] at bedside from 0220 through transfer to [facility]. Life safety paged for assistance when BP began to decline rapidly. See life safety note for details. Critical care also at beside. Roxy Cordon RN * Sophia Ellington RN - 04/20/2020 6:58 AM EDT Patient transferred from [facility] by [facility]. HR afib 160s, arden running @ 50. CCS at bedside performing bedside echo, around 0600 pt. Self converted into NSR 80- 90s and arden weaned off. * Tiesha Morgan MD - 04/20/2020 5:07 AM EDT Patient with aortic stenosis with valve area 0.8 (no echo result documented) and acute cholecystitis, transferred to [facility] on 04/19 PM. Plan was cardiology pre-op [...] 3999 at bedside for eval. Discussed with craft worker, who recommended PO metop tartrate 25 mg [...] 04/19/2020 1:45 PM EDT Patient arrived from [facility] via ambulance. Received report from Rhina. [...] History & Physical - RED Team, Pager [phone] Chief Complaint: liver abscess History of Present Illness: Shannan Chaudhary is a 79 y.o. female with history of IDDM last A1c 8.5(03/2020), HTN, HLD, moderate-severe who presents with cholecystitis. The patient first began to have a feeling of pain in her right upper quadrant on 04/12, and presented to [facility] ED on 04/18 and found to have a TBili of 2.2 and WBC of 17; alk phos 148, AST/ALT unremarkable, Cr 1.37. Pt CTAP from [facility] revealed a hydropic gallbladder with thickening [...] on a nitro drip and transferred to [facility]. 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 Pt previously had been fully [...] on phone: None Gets together: None Attends latter-day service: None Active member of club or [...] Body Fluid Culture, Aerobic & Anaerobic Fluid [[id number]] Collected: 04/28/20 1000 Lab Status: In process Specimen: Fluid Updated: 04/28/20 1124 Body Fluid Culture, Aerobic [[id number]] Collected: 04/28/20 1000 Lab Status: Preliminary result Specimen: Fluid Updated: 04/28/20 1124 Gram Stain -- Few Neutrophils seen No microorganisms seen. Body Fluid Culture, Aerobic & Anaerobic Bile [[id number]] (Abnormal) Collected: 04/22/20 1550 Lab Status: Final result Specimen: Bile Updated: 04/26/20 1544 Body Fluid Culture, Aerobic [[id number]] (Abnormal) (Susceptibility) Collected: 04/22/20 155 Lab Status: [...] using in critically ill patients. Anaerobic Culture [[id number]] Collected: 04/22/20 1550 Lab Status: Final result [...] Routine Diet: Daily Healthy Menu Choices/Cardiac diet ([facility]-Diet) CHO cont DVT prophylaxis: apixaban Fluids: PO Access: PIV Dispo: transfer to 4600 Code: Attempt Cardiopulmonary Resuscitation - Inpatient Wilner Esparza MD PGY-1, Internal Medicine 04/28/2020 Red Team Pager - #[phone] Associated attestation - Dale Gonzáles MD - [...] two midnights or is on the [facility] inpatient only procedure list (status C) due [...] is a 79 y.o. female transferred to [facility] for acute cholecystitis and subsequently found to [...] Tube Placement 04/22/2020 Jos Collins P, DO [facility] INTERVENTIONL RAD Medications: No current facility-administered medications [...] file Gets together: Not on file Attends latter-day service: Not on file Active member of [...] procedure) Assessment: 79 y.o. female transferred to [facility] for acute cholecystitis and subsequently found to [...] is consulted for percutaneous drainage of the aarbella-hepatic abscess. Plan: Plan Planned procedure: Arabella-Hepatic Drainage [...] is a 79 y.o. female transferred to [facility] for acute cholecystitis and subsequently found to [...] Tube Placement 04/22/2020 Jos Collins P, DO [facility] INTERVENTIONL RAD Medications: No current facility-administered medications [...] mL 2 ??? blood sugar diagnostic strips (Vasona NetworksTOUCH ULTRA TEST) Strip 1 each by Other [...] file Gets together: Not on file Attends latter-day service: Not on file Active member of [...] procedure) Assessment: 79 y.o. female transferred to [facility] for acute cholecystitis and subsequently found to [...] is a 79 y.o. female transferred to [facility] for acute cholecystitis and subsequently found to [...] diabetes mellitus without mention of complication, uncontrolled [id number] ??? Hypertension I10 ??? Hyperlipidemia E78.5 ??? [...] Brand, 250.02. 1 each 0 ??? Lancets [facility] Use twice daily or as needed. 200 [...] file Gets together: Not on file Attends latter-day service: Not on file Active member of [...] is a 79 y.o. female transferred to [facility] for acute cholecystitis and subsequently found to [...] PCP: Reshma Baig MD PCP phone #: [phone] ID/Chief Complaint: Ms. Chaudhary is a 79F with a PMH of HTN, HLD, DM, possible history of AF who presented as a transferfrom [facility] for acute cholecystitis with a course complicated by afib with RVR and hypotension now transferring to the Cardiology service due to severe (CORINE 0.8 at OSH) with consideration of direct i ntervention. History of Present Illness: Patient transferred from [facility] on 04/19 for cardiac preop eval [...] Dr. Patel, patient was taken to the photo lab manager for RHC and evaluation. In the photo lab manager she was found to have two vessel [...] patient was then transferred back to the [facility]. On conference between the General Surgery [...] number below. Electronically signed by: Harris Shepard, [facility] ([phone]), at 04/19/2020 4:27 PM XR Chest One [...] PLAN: Transfer to Cardiology S1 service, Pager [phone] # NSTEMI, s/p stenting of RCA osteal [...] Rodríguez MD, PGY-1 Cardiology M1-S2, Team Pager [phone] 04/21/2020 Cardiology Attending Note I have seen [...] type 2 DM who was admitted to [facility] due to cholecystitis with plan for cardiology [...] file Gets together: Not on file Attends latter-day service: Not on file Active member of [...] Lopez MD - 04/19/2020 5:24 PM EDT [facility] Acute Care Surgery Admission H&P History of Present Illness: Shannan Chaudhary is a 79 y.o. female with PMH IDDM and reported aorticstenosis with valve area 0.8 (records unavailable in eDH but reviewed by [facility] referring MD) who is admitted in [...] the subsequent days and she presented to [facility] ED yesterday (Sunday). There her tBili [...] file Gets together: Not on file Attends latter-day service: Not on file Active member of [...] OSH with cholecystitis who was transferred to [facility] due to increased cardiac risk associated with [...] last Sunday, was noted on imaging at [facility] to have a hydropic gallbladder withthickening [...] guard placed. Patient had full bath with CRAWLER CRANE OPERATOR. Left IV dressing changed. Patient went for [...] and heme + results. Pt NPO at [place] for EGD tmr. Pt denies abdominal pain, [...] file Gets together: Not on file Attends latter-day service: Not on file Active member of [...] Dr. Graf. Mauro Patel MD Gastroenterology Fellow #[id number] Attending Addendum: I interviewed and examined the patient with Dr. Patel on rounds. I confirm the history and sanchez physical findings outlined in this note. The assessment and plan were formulated in discussion with me at the time of this encounter, and I agree with them as documented. Brigitte Graf MD Gastroenterology and hepatology Pager: [phone] * Plan of Care - Jeevan Curiel [...] device Surveillance [continuous indirect monitoring]: Room near [facility] Patient-specific fall prevention interventions for sensory deficits [...] Outcome: Ongoing (Interventions Implemented as Appropriate) 04/29/20 7431 Coping/Psychosocial Plan Of Care Reviewed With patient [...] CONSULTATION NOTE Patient ID: Shannan Chaudhary Room: [address] [place] [address] Reason for Consult: liver abcess Consulting Service: Hospital Medicine Consulting Attending: Dale Dash MD Admission Date: 04/19/2020 History of Present Illness: 79 y.o. female with a history of DM2 (A1C 8.5%), severe who was admitted for sepsis secondary tocholecystitis. Due to her severe she was not a surgical candidate at her institution so was sent to [facility] for evaluation. She underwent pre-operative cardiac angiogram [...] Guided Drain Peritoneal 04/28/2020 [facility] RAD CAT SCAN ??? HYSTERECTOMY, VAGINAL ??? IR CHOLECYSTOSTOMY TUBE PLACEMENT 04/22/2020 IR Cholecystostomy Tube Placement 04/22/2020 Jos Collins, DO [facility] INTERVENTIONL RAD Medications: ??? apixaban (Eliquis) tablet [...] immunocompromising conditions Social History: Lives alone in [place], [place] but has family members who live [...] Body Fluid Culture, Aerobic & Anaerobic Fluid [[id number]] (Abnormal) Collected: 04/28/20 1000 Lab Status: Preliminary result Specimen: Fluid Updated: 04/29/20 1409 Body Fluid Culture, Aerobic [[id number]] (Abnormal) Collected: 04/28/20 1000 Lab Status: Preliminary result Specimen: Fluid Updated: 04/29/20 1316 Body Fluid Culture One colony of Raoultella ornithinolytica (Klebsiella ornithinolytica) Gram Stain -- Few Neutrophils seen No microorganisms seen. Anaerobic Culture [[id number]] Collected: 04/28/20 1000 Lab Status: Preliminary result Specimen: Fluid Updated: 04/29/20 1409 Anaerobic Culture No anaerobic organisms isolated to date Body Fluid Culture, Aerobic & Anaerobic Bile [[id number]] (Abnormal) Collected: 04/22/20 1550 Lab Status: Final result Specimen: Bile Updated: 04/26/20 1544 Body Fluid Culture, Aerobic [[id number]] (Abnormal) (Susceptibility) Collected: 04/22/20 1550 Lab Status: [...] using in critically ill patients. Anaerobic Culture [[id number]] Collected: 04/22/20 1550 Lab Status: Final result Specimen: Bile Updated: 04/26/20 154 Anaerobic Culture No anaerobic organisms isolated Radiology/Studies/Procedures: [...] Veda Avila, Infectious Diseases Fellow- PGY4 Pager: [phone] 04/29/2020 6:23 PM Associated attestation - Harris [...] type 2 DM who was transferred to [facility] on 04/19/20 for cardiology evaluation and surgical planning in the setting of acute cholecystitis. Reviewing her hospital course, she developed Afib with RVR complicated by hypotension and hypoxic respiratory failure on 04/20/20, she was taken to the photo lab manager on 04/21/20 whereshe had a RCA stent [...] Outcome: Ongoing (Interventions Implemented as Appropriate) 04/26/20 8781 Coping/Psychosocial Plan Of Care Reviewed With patient [...] in an outpatient cardiac rehabilitation program at [facility] was discussed. Patient agrees to a [...] Outcome: Ongoing (Interventions Implemented as Appropriate) 04/24/20 2033 Coping/Psychosocial Plan Of Care Reviewed With [...] are placed. Patient requests referral to :: [facility] [employer]. PHONE: [phone] FAX: [phone] Expected date of discharge:next 24-48 hours Referral routed to the Inside Channel Account Manager for matching with agency/vendor and to provide any required information. * Op Note - Esau Rahman MD - 04/21/2020 6:14 PM EDT [facility] Operative Note Patient Name: Shannan Farleyc : [id number] MR#: [id number] Case Date: 04/21/2020 Surgeon: Surgeon(s) and Role: * Esau Rahman MD - Primary * Raman, Sandy L, DO - Fellow Preoperative diagnosis: ?CAD Postoperative diagnosis: Successful PCI with 2 SYNERGY stents Note cardiac output normal, and mean gradient across aortic valve 20 mmHg ASA loaded prior to case, plavix 600 mg load given in the photo lab manager I spoke with Dr Garrison. Tentative plan [...] evident early complications. Results discussed with referring clerk entry level, service clerk entry level, and with the patient and theirfamily. A [...] is fair OUTCOME EVALUATION NOTE: OUTCOME SUMMARY: Welfare Aide assumed care of pt at 07:30. [...] Esau Rahman MD MPH Structural Interventional Cardiology [place] [phone] , #5 Overall clinical summary: ?? This [...] to admission. She had not seen a clerk entry level previously. Pertinent past history: Active Hospital Problems [...] mg 37.5 mg Oral Q6H [facility] Carol Reyna MD ??? sodium chloride [...] Units 1-4 Units Subcutaneous Q4H [facility] Jayashree Keenan MD ??? insulin glargine [...] questions, please feel free to contact me: [phone] #5 (secretary office clerk Bert Ortega, and he will have me paged) or [email or web address]. Shannan Chaudhary 04/20/2020 Referring Providers: MD Alonzo Mcdonald, Bethany Francis MD [address] [place] [address] [address] [place] [address] ESAU RAHMAN MD 04/20/2020 TESTING: Recent Results [...] QTC Calculated (Bezet) 474 ms Calculated P Mercer 59 degrees Calculated R Mercer 26 degrees Calculated T Mercer 2 degrees INTERPRETATION Normal sinus rhythm Right bundle branch block Abnormal ECG No previous ECGs available POCT Glucose Result Value Ref Range POC Glucose 112 65 - 199 mg/dL EKG 12 Lead Result Value Ref Range Ventricular rate 168 BPM Atrial Rate 174 BPM QRS Duration 128 ms Q-T Interval 288 ms QTC Calculated (Bezet) 481 ms Calculated R Mercer 82 degrees Calculated T Mercer -18 degrees INTERPRETATION Atrial fibrillation with rapid [...] mg/dL Lactate, whole blood, send to lab ([facility] Result Value Ref Range Lactate WB 1.6 0.5 - 2.2 mmol/L POCT Glucose Result Value Ref Range POC Glucose 128 65 - 199 mg/dL Echocardiogram Transthoracic([facility]) Result Value Ref Range EF 59 Troponin Result Value Ref Range Troponin-T 0.22 (H) 0.00 - 0.00 ng/mL EKG 12 Lead Result Value Ref Range Ventricular rate 77 BPM Atrial Rate 77 BPM P-R Interval 160 ms QRS Duration 120 ms Q-T Interval 406 ms QTC Calculated (Bezet) 459 ms Calculated P Mercer 48 degrees Calculated R Mercer 27 degrees Calculated T Mercer 18 degrees INTERPRETATION Sinus rhythm with marked [...] Units 5,000 Units Subcutaneous Q8H [facility] Jayashree Keenan MD 5,000 Units at [...] Units 1-4 Units Subcutaneous Q4H [facility] Jayashree Keenan MD ??? insulin glargine [...] date and time: COVID-19 TESTING 04/18 Order: [id number] (suggestion) Information displayed in this report will [...] HC and that a copy is at [facility]. If AD's have not been completed adult children would be surrogate decision maker per [place] surrogate decision making law. Any patient receiving care at [facility] must abide by [place] law. The hierarchy for surrogate decision making [...] (i) The agent with financial power of divorce attorney or a conservator appointed in accordance [...] she is independent and active. 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 All able to assist if needed. Behavioral [...] Specific Information: n/a Health/Prescription Coverage: Primary Insurance: [employer] Secondary Insurance: N/A Prescription Coverage: yes Preferred Pharmacy: [facility] Other: n/a Primary Care Provider: Reshma Baig MD [phone] Patient/Caregiver Goals of Treatment: home with no needs once medically ready Potential Needs for Transition of Care: Rehab/SNF: n/a Home Health: n/a DME: n/a Dialysis: n/a Community Resources: n/a Transportation: son Darwin will take her home Other: n/a Anticipated Barriers to Discharge/Special Considerations: none Assessment: Independent woman admitted for chloycystectomy And found to have A FIb with [employer]. Has insurance through [employer] with prescription coverage. Has accessible home and support of adult children. States she has advanced directives and we do not have a copy. Plan: Home no needs once medically ready. Have asked O[facility] to call [facility] for copy of AD. A member of the Care Management team will continue to monitor progress, follow for continuity of care and assist with transition of care planning. RESHMA ALLRED RN Pager: [phone] * Consult Note - Lisbeth Cain MD - 04/20/2020 10:04 AM EDT Images from the original note were not included. Inpatient Cardiology Consult Note Date of Consultation: 04/20/2020 Admit Date: 04/19/2020 Place of Service: CV21-A Consult Attending: Dr. Cain [facility] Day 1 day Reason for Consult: [...] to the hospital as a transfer from [facility] for acute cholecystitis with pain since [...] walk up a flight of stairs, do insurance analyst and other activities without being limited by [...] (23 ml/m2). Nicole: 0.66% risk of perioperative VT or cardiac arrest Geriatric-sensitive RCRI: 2.1% probability of perioperative VT or cardiac arrest Assessment: Ms. Chaudhary is a 79 year old woman with a history of HTN, HLP, DM, severe (CORINE 0.8 at OSH) - asymptomatic, possible history of AF who presented to the hospital as a transfer from [facility] for acute cholecystitis with pain since [...] (though she is not anticoagulated) -Recommend intermediate project manager anticoagulation for her AF but this can be deferred at the moment Will continue to follow, page with questions. Anam Cazares MD Counselor At Law PGY-5 04/20/2020 Page [phone] The indications, expected benefits, and potential risks [...] interactive; HR remained 140s. Patient moved to [facility] (Red), no events en route, report [...] 04/21/2020 3:30 AM EDT DIFFERENTIAL, AUTOMATED Routine 08/26/20 20 3:30 AM EDT HC PROTHROMBIN TIME [...] The procedure was performed under fluoroscopic guidance. Assistant General Manager fluoroscopic images of the right upper quadrant [...] Glucose, POC 195 65 - 199 mg/dL [facility] Comment: Supplemental ranges: <140 mg/dL before meals <180 mg/dL all other times of the day Blood specimen (specimen) 05/08/2020 11:10 AM EDT 05/08/2020 11:10 AM EDT Kota Gonzales MD POINT OF CARE TEST O RDERABLES Performing Organization Address [facility]/ZIP Co de Phone Number [facility] [place] [address] * POCT Glucose (05/08/2020 6:51 AM EDT) Glucose, POC 144 65 - 199 mg/dL [facility] Comment: Supplemental ranges: <140 mg/dL before meals <180 mg/dL all other times of the day Blood specimen (specimen) 05/08/2020 6:51 AM EDT 05/08/2020 6:51 AM EDT Milagros Velazquez MD POINT OF CARE TEST O RDERABLES Performing Organization Address City/[facility]/ZIP Co de Phone Number [facility] [place] [address] * Differential, Automated (05/08/2020 5:46 AM EDT) Neutrophil % 60.5 % [facility] Neutrophil Absolute 5.19 1.70 - 6.10 x10(3)/[facility] Lymph % 28.3 % [facility] Lymphocytes Abs 2.4 0.9 - 3.2 x10(3)/[facility] Monocyte % 5.8 % [facility] Monocyte Abs 0.5 0.3 - 0.9 x10(3)/[facility] Eos % 3.4 % [facility] Eosinophils Abs 0.3 0.0 - 0.4 x10(3)/[facility] Basophil % 1.5 % [facility] Baso Absolute 0.1 0.0 - 0.1 x10(3)/[facility] Immature Gran % 0.50 % [facility] Comment: Immature granulocytes(IG's)percentage and absolute count will include metamyelocytes, myelocytes, and promyelocytes. Blood smears from CBCs yielding IG's will be scanned manually for concordance. If this scan disagrees with the automated IG or if promyelocytes are noted, a manual differential will be performed. Immature Gran Absolute 0.04 0.00 - 0.04 x10(3)/[facility] Blood specimen (specimen) 05/08/2020 5:46 AM EDT 05/08/2020 6:21 AM EDT Narrative Resulting Agency Comment Spec In Lab Wilner Esparza MD HEMATOLOGY ORDERABLE S [facility] [place] [address] * (ABNORMAL) Hemogram (05/08/2020 5:46 AM EDT) White Blood Cell 8.6 4.0 - 9.5 x10(3)/mc L [facility] Red Blood Cell 3.17(L) 4.00 - 5.21 x10(6)/mc L [facility] Hemoglobin 8.8(L) 11.7 - 15.5 gm/dL [facility] Hematocrit 26.7(L) 35.7 - 45.8 % [facility] Mean Cell Volume 84.2 82.6 - 94.4 fL [facility] Mean Cell Hemoglobin 27.8 27.1 - 32.0 pg [facility] Mean Cell Hemoglobin Concentration 33.0 31.7 - 35.0 gm/dL [facility] Platelet 351 145 - 357 x10(3)/mc L [facility] RDW Standard Deviation 46.5(H) 37.0 - 46.0 fL [facility] RDW coefficient of variation 15.6(H) 11.5 - 14.1 % [facility] Mean Platelet Volume 10.1 7.6 - 12.9 fL [facility] NRBC% auto 0.0 % [facility] NRBC Absolute 0.000 0.000 - 0.000 x10(3)/mc L [facility] Blood specimen (specimen) 05/08/2020 5:46 AM EDT 05/08/2020 6:21 AM EDT Narrative Resulting Agency Comment Spec In Lab Wilner Esparza MD HEMATOLOGY ORDERABLE S [facility] [place] [address] * (ABNORMAL) Basic Metabolic Panel (non-fasting) (05/08/2020 5:46 AM EDT) Glucose 152 65 - 199 mg/dL [facility] Comment:Diabetes: >=200 mg/d L plus symptoms Blood Urea Nitrogen 20(H) 8 - 18 mg/dL [facility] Creatinine 0.85 0.70 - 1.20 mg/dL [facility] Sodium 136 135 - 145 mmol/L [facility] Potassium 4.1 3.5 - 5.0 mmol/L [facility] Est Glomerular Filtration Rate 65 >=60 mL/min/1. 73 m?? [facility] Comment: The eGFR was calculated using the CKD-EPI equation. As with all creatinine based estimates of kidney function, eGFR values calculated with the CKD-EPI equation are not accurate in patients with acute kidney failure, extremes of body mass or the acutely ill. [email or web address] eGFR 76 >=60 mL/min/1. 73 m?? [facility] Comment: The eGFR was calculated using the CKD-EPI equation. As with all creatinine based estimates of kidney function, eGFR values calculated with the CKD-EPI equation are not accurate in patients with acute kidney failure, extremes of body mass or the acutely ill. [email or web address] Blood specimen (specimen) 05/08/2020 5:46 AM EDT 05/08/2020 6:20 AM EDT Narrative Resulting Agency Comment Spec In Lab Milagros Velazquez MD CHEMISTRY ORDERABLES [facility] [place] [address] * Magnesium (05/08/2020 5:46 AM EDT) Magnesium 0.79 0.69 - 1.07 mmol/L [facility] Blood specimen (specimen) 05/08/2020 5:46 AM EDT 05/08/2020 6:20 AM EDT Narrative Resulting Agency Comment Spec In Lab Dale Dash MD CHEMISTRY ORDERABLES Performing Organization Address City/[facility]/ZIP Co de Phone Number [facility] [place] [address] * POCT Glucose (05/07/2020 8:35 PM EDT) Glucose, POC 147 65 - 199 mg/dL [facility] Comment: Supplemental ranges: <140 mg/dL before meals <180 mg/dL all other times of the day Blood specimen (specimen) 05/07/2020 8:35 PM EDT 05/07/2020 8:35 PM EDT Milagros Velazquez MD POINT OF CARE TEST O ISAIAH Performing Organization Address City/[facility] Co de Phone Number [facility] [place] [address] * POCT Glucose (05/07/2020 4:26 PM EDT) Glucose, POC 173 65 - 199 mg/dL [facility] Comment: Supplemental ranges: <140 mg/dL before meals <180 mg/dL all other times of the day Blood specimen (specimen) 05/07/2020 4:26 PM EDT 05/07/2020 4:26 PM EDT Milagros Velazquez MD POINT OF CARE TEST O POOLERATOAN Performing Organization Address [facility] Co de Phone Number [facility] [place] [address] * POCT Glucose (05/07/2020 11:17 AM EDT) Glucose, POC 185 65 - 199 mg/dL [facility] Comment: Supplemental ranges: <140 mg/dL before meals <180 mg/dL all other times of the day Blood specimen (specimen) 05/07/2020 11:17 AM EDT 05/07/2020 11:17 AM EDT Milagros Velazquez MD POINT OF CARE TEST O RDERATOAN Performing Organization Address City/[facility] Co de Phone Number [facility] [place] [address] * POCT Glucose (05/07/2020 7:20 AM EDT) Glucose, POC 145 65 - 199 mg/dL [facility] Comment: Supplemental ranges: <140 mg/dL before meals <180 mg/dL all other times of the day Blood specimen (specimen) 05/07/2020 7:20 AM EDT 05/07/2020 7:20 AM EDT Milagros Velazquez MD POINT OF CARE TEST O RDERABLES [facility] [place] [address] * Differential, Automated (05/07/2020 6:45 AM EDT) Neutrophil % 53.8 % [facility] Neutrophil Absolute 4.19 1.70 - 6.10 x10(3)/[facility] Lymph % 33.1 % [facility] Lymphocytes Abs 2.6 0.9 - 3.2 x10(3)/[facility] Monocyte % 7.6 % [facility] Monocyte Abs 0.6 0.3 - 0.9 x10(3)/[facility] Eos % 3.2 % [facility] Eosinophils Abs 0.2 0.0 - 0.4 x10(3)/[facility] Basophil % 1.8 % [facility] Baso Absolute 0.1 0.0 - 0.1 x10(3)/[facility] Immature Gran % 0.50 % [facility] Comment: Immature granulocytes(IG's)percentage and absolute count will include metamyelocytes, myelocytes, and promyelocytes. Blood smears from CBCs yielding IG's will be scanned manually for concordance. If this scan disagrees with the automated IG or if promyelocytes are noted, a manual differential will be performed. Immature Gran Absolute 0.04 0.00 - 0.04 x10(3)/[facility] Blood specimen (specimen) 05/07/2020 6:45 AM EDT 05/07/2020 7:01 AM EDT Narrative Resulting Agency Comment Spec In Lab Wilner Esparza MD HEMATOLOGY ORDERABLE S [facility] [place] [address] * (ABNORMAL) Hemogram (05/07/2020 6:45 AM EDT) White Blood Cell 7.8 4.0 - 9.5 x10(3)/mc L [facility] Red Blood Cell 3.19(L) 4.00 - 5.21 x10(6)/mc L [facility] Hemoglobin 8.8(L) 11.7 - 15.5 gm/dL [facility] Hematocrit 26.4(L) 35.7 - 45.8 % [facility] Mean Cell Volume 82.8 82.6 - 94.4 fL [facility] Mean Cell Hemoglobin 27.6 27.1 - 32.0 pg [facility] Mean Cell Hemoglobin Concentration 33.3 31.7 - 35.0 gm/dL [facility] Platelet 360(H) 145 - 357 x10(3)/mc L [facility] RDW Standard Deviation 44.9 37.0 - 46.0 fL [facility] RDW coefficient of variation 15.2(H) 11.5 - 14.1 % [facility] Mean Platelet Volume 9.9 7.6 - 12.9 fL [facility] NRBC% auto 0.0 % [facility] NRBC Absolute 0.000 0.000 - 0.000 x10(3)/mc L [facility] Blood specimen (specimen) 05/07/2020 6:45 AM EDT 05/07/2020 7:01 AM EDT Narrative Resulting Agency Comment Spec In Lab Wilner Esparza MD HEMATOLOGY ORDERABLE S [facility] [place] [address] * (ABNORMAL) Basic Metabolic Panel (non-fasting) (05/07/2020 6:45 AM EDT) Glucose 145 65 - 199 mg/dL [facility] Comment:Diabetes: >=200 mg/d L plus symptoms Blood Urea Nitrogen 18 8 - 18 mg/dL [facility] Creatinine 0.85 0.70 - 1.20 mg/dL [facility] Sodium 137 135 - 145 mmol/L [facility] Potassium 4.1 3.5 - 5.0 mmol/L [facility] Comment: Please note: ??Patients with WBC >100,000 may have falsely elevated Potassium levels. ??For accurate Potassium quantification in these patients send serum separator tube (gold top) for subsequent determinations. ??Contact the Clinical Chemistry Laboratory if there are any questions. Chloride 105 98 - 107 mmol/L [facility] Carbon Dioxide 21(L) 22 - 31 mmol/L [facility] Anion Gap 11 5 - 15 mmol/L [facility] Calcium 8.9 8.5 - 10.5 mg/dL [facility] Est Glomerular Filtration Rate 65 >=60 mL/min/1. 73 m?? [facility] Comment: The eGFR was calculated using the CKD-EPI equation. As with all creatinine based estimates of kidney function, eGFR values calculated with the CKD-EPI equation are not accurate in patients with acute kidney failure, extremes of body mass or the acutely ill. [email or web address]kf eGFR 76 >=60 mL/min/1. 73 m?? [facility] Comment: The eGFR was calculated using the CKD-EPI equation. As with all creatinine based estimates of kidney function, eGFR values calculated with the CKD-EPI equation are not accurate in patients with acute kidney failure, extremes of body mass or the acutely ill. [email or web address] Blood specimen (specimen) 05/07/2020 6:45 AM EDT 05/07/2020 7:01 AM EDT Narrative Resulting Agency Comment Spec In Lab Milagros Velazquez MD CHEMISTRY ORDERABLES [facility] [place] [address] * Magnesium (05/07/2020 6:45 AM EDT) Magnesium 0.82 0.69 - 1.07 mmol/L [facility] Blood specimen (specimen) 05/07/2020 6:45 AM EDT 05/07/2020 7:01 AM EDT Narrative Resulting Agency Comment Spec In Lab Dale Dash MD CHEMISTRY ORDERABLES Performing Organization Address [facility] Co de Phone Number [facility] [place] [address] * POCT Glucose (05/07/2020 4:11 AM EDT) Glucose, POC 156 65 - 199 mg/dL [facility] Comment: Supplemental ranges: <140 mg/dL before meals <180 mg/dL all other times of the day Blood specimen (specimen) 05/07/2020 4:11 AM EDT 05/07/2020 4:11 AM EDT Milagros Velazquez MD POINT OF CARE TEST O RDERABLES Performing Organization Address [facility] Co de Phone Number [facility] [place] [address] * POCT Glucose (05/06/2020 11:36 PM EDT) Glucose, POC 172 65 - 199 mg/dL [facility] Comment: Supplemental ranges: <140 mg/dL before meals <180 mg/dL all other times of the day Blood specimen (specimen) 05/06/2020 11:36 PM EDT 05/06/2020 11:36 PM EDT Milagros Velazquez MD POINT OF CARE TEST O RDERABLES [facility] [place] [address] * POCT Glucose (05/06/2020 8:28 PM EDT) Glucose, POC 195 65 - 199 mg/dL [facility] Comment: Supplemental ranges: <140 mg/dL before meals <180 mg/dL all other times of the day Blood specimen (specimen) 05/06/2020 8:28 PM EDT 05/06/2020 8:28 PM EDT Milagros Velazquez MD POINT OF C[place] [address] * Differential, Automated (05/06/2020 5:36 PM EDT) [facility] Neutrophil % 62.8 % [facility] Neutrophil Absolute 6.07 1.70 - 6.10 x10(3)/[facility] Lymph % 27.5 % [facility] Lymphocytes Abs 2.7 0.9 - 3.2 x10(3)/[facility] Monocyte % 5.7 % [facility] Monocyte Abs 0.6 0.3 - 0.9 x10(3)/[facility] Eos % 2.3 % [facility] Eosinophils Abs 0.2 0.0 - 0.4 x10(3)/[facility] Basophil % 1.3 % [facility] Baso Absolute 0.1 0.0 - 0.1 x10(3)/[facility] Immature Gran % 0.40 % [facility] Comment: Immature granulocytes(IG's)percentage and absolute count will include metamyelocytes, myelocytes, and promyelocytes. Blood smears from CBCs yielding IG's will be scanned manually for concordance. If this scan disagrees with the automated IG or if promyelocytes are noted, a manual differential will be performed. Immature Gran Absolute 0.04 0.00 - 0.04 x10(3)/mcL [facility] Blood specimen (specimen) 05/06/2020 5:36 PM EDT 05/06/2020 6:04 PM EDT Narrative Resulting Agency Comment Spec In Lab Wilner Esparza MD HEMATOLOGY ORDERABLE S [facility] [place] [address] * (ABNORMAL) Hemogram (05/06/2020 5:36 PM EDT) White Blood Cell 9.7(H) 4.0 - 9.5 x10(3)/ L [facility] Red Blood Cell 3.53(L) 4.00 - 5.21 x10(6)/ L [facility] Hemoglobin 9.7(L) 11.7 - 15.5 gm/dL [facility] Hematocrit 29.8(L) 35.7 - 45.8 % [facility] Mean Cell Volume 84.4 82.6 - 94.4 fL [facility] Mean Cell Hemoglobin 27.5 27.1 - 32.0 pg [facility] Mean Cell Hemoglobin Concentration 32.6 31.7 - 35.0 gm/dL [facility] Platelet 427(H) 145 - 357 x10(3)/ L [facility] RDW Standard Deviation 45.3 37.0 - 46.0 [facility] RDW coefficient of variation 14.9(H) 11.5 - 14.1 % [facility] Mean Platelet Volume 10.0 7.6 - 12.9 fL [facility] NRBC% auto 0.0 % [facility] NRBC Absolute 0.000 0.000 - 0.000 x10(3)/ L [facility] Blood specimen (specimen) 05/06/2020 5:36 PM EDT 05/06/2020 6:04 PM EDT Narrative Resulting Agency Comment Spec In Lab Wilner Esparza MD HEMATOLOGY ORDERABLE S Performing Organization Address City/[facility]/ZIP Co de Phone Number [facility] [place] [address] * Transfuse RBC (05/06/2020 4:30 PM EDT) Milagros Velazquez MD NURSING TREATMENT OR DERABLES - BLOOD ADMIN * Transfuse RBC (05/06/2020 4:30 PM EDT) Milagros Velazquez MD NURSING TREATMENT OR DERABLES - BLOOD ADMIN * POCT Glucose (05/06/2020 4:20 PM EDT) [facility] Glucose, POC 165 65 - 199 mg/dL [facility] Comment: Supplemental ranges: <140 mg/dL before meals <180 mg/dL all other times of the day Blood specimen (specimen) 05/06/2020 4:20 PM EDT 05/06/2020 4:20 PM EDT Milagros Velazquez MD POINT OF CARE TEST O RDERABLES Performing Organization Address [facility]/ZIP Co de Phone Number [facility] [place] [address] * ABORH Recheck Status (05/06/2020 12:46 PM EDT) [facility] ABORH Type Recheck Completed [facility] Blood specimen (specimen) 05/06/2020 12:46 PM EDT 05/06/2020 12:51 PM EDT Narrative Resulting Agency Comment Spec In Lab Wilner Esparza MD BLOOD BANK LAB ORDER JAMIE Performing Organization Address [facility]/ZIP Co de Phone Number [facility] [place] [address] * Antibody screen (05/06/2020 12:46 PM EDT) [facility] Ab Screen Interp Negative [facility] Expires at [id number] on: 05/09/2020 [facility] Blood specimen (specimen) 05/06/2020 12:46 PM EDT 05/06/2020 12:51 PM EDT Narrative Resulting Agency Comment Spec In Lab Wilner Esparza MD BLOOD BANK LAB ORDER JAMIE Performing Organization Address City/[facility]/ZIP Co de Phone Number [facility] [place] [address] * ABO/Rh Typing (05/06/2020 12:46 PM EDT) ABORH Type O Pos [facility] Blood specimen (specimen) 05/06/2020 12:46 PM EDT 05/06/2020 12:51 PM EDT Narrative Resulting Agency Comment Spec In Lab Wilner Esparza MD BLOOD BANK LAB ORDER JAMIE Performing Organization Address [facility] Co de Phone Number [facility] [place] [address] * Prepare RBC (05/06/2020 12:15 PM EDT) Dispensed? Yes [facility] Blood specimen (specimen) 05/06/2020 12:15 PM EDT 05/06/2020 12:14 PM EDT Narrative Resulting Agency Comment Spec In Lab Milagros Velazquez MD BLOOD BANK PRODUCT O RDERABLES Performing Organization Address [facility] Co de Phone Number [facility] [place] [address] * (ABNORMAL) POCT Glucose (05/06/2020 11:50 AM EDT) Glucose, POC 200(H) 65 - 199 mg/dL [facility] Comment: Supplemental ranges: <140 mg/dL before meals <180 mg/dL all other times of the day Blood specimen (specimen) 05/06/2020 11:50 AM EDT 05/06/2020 11:50 AM EDT Milagros Velazquez MD POINT OF CARE TEST O RDERABLES [facility] [place] [address] * POCT Glucose (05/06/2020 7:39 AM EDT) Glucose, POC 153 65 - 199 mg/dL [facility] Comment: Supplemental ranges: <140 mg/dL before meals <180 mg/dL all other times of the day Blood specimen (specimen) 05/06/2020 7:39 AM EDT 05/06/2020 7:39 AM EDT Milagros Velazquez MD POINT OF CARE TEST O ISAIAH Performing Organization Address City/[facility]/ZIP Co de Phone Number [facility] [place] [address] * Differential, Automated (05/06/2020 5:25 AM EDT) [facility] Neutrophil % 56.6 % [facility] Neutrophil Absolute 4.64 1.70 - 6.10 x10(3)/[facility] Lymph % 30.6 % [facility] Lymphocytes Abs 2.5 0.9 - 3.2 x10(3)/[facility] Monocyte % 7.8 % [facility] Monocyte Abs 0.6 0.3 - 0.9 x10(3)/[facility] Eos % 3.0 % [facility] Eosinophils Abs 0.2 0.0 - 0.4 x10(3)/[facility] [facility] Basophil % 1.6 % [facility] Baso Absolute 0.1 0.0 - 0.1 x10(3)/[facility] Immature Gran % 0.40 % [facility] Comment: Immature granulocytes(IG's)percentage and absolute count will include metamyelocytes, myelocytes, and promyelocytes. Blood smears from CBCs yielding IG's will be scanned manually for concordance. If this scan disagrees with the automated IG or if promyelocytes are noted, a manual differential will be performed. Immature Gran Absolute 0.03 0.00 - 0.04 x10(3)/mcL [facility] Blood specimen (specimen) 05/06/2020 5:25 AM EDT 05/06/2020 5:25 AM EDT Narrative Resulting Agency Comment Spec In Lab Wilner Esparza MD HEMATOLOGY ORDERABLE S [facility] [place] [address] * (ABNORMAL) Hemogram (05/06/2020 5:25 AM EDT) White Blood Cell 8.2 4.0 - 9.5 x10(3)/mc L [facility] Red Blood Cell 2.58(L) 4.00 - 5.21 x10(6)/ L [facility] Hemoglobin 7.0(L) 11.7 - 15.5 gm/dL [facility] Hematocrit 22.1(L) 35.7 - 45.8 % [facility] Mean Cell Volume 85.7 82.6 - 94.4 fL [facility] Mean Cell Hemoglobin 27.1 27.1 - 32.0 pg [facility] Mean Cell Hemoglobin Concentration 31.7 31.7 - 35.0 gm/dL [facility] Platelet 364(H) 145 - 357 x10(3)/mc L [facility] RDW Standard Deviation 46.5(H) 37.0 - 46.0 fL [facility] RDW coefficient of variation 15.2(H) 11.5 - 14.1 % [facility] Mean Platelet Volume 9.9 7.6 - 12.9 fL [facility] NRBC% auto 0.0 % [facility] NRBC Absolute 0.000 0.000 - 0.000 x10(3)/mc L [facility] Blood specimen (specimen) 05/06/2020 5:25 AM EDT 05/06/2020 5:25 AM EDT Narrative Resulting Agency Comment Spec In Lab Wilner Esparza MD HEMATOLOGY ORDERABLE S [facility] [place] [address] * (ABNORMAL) Basic Metabolic Panel (non-fasting) (05/06/2020 5:25 AM EDT) Glucose 136 65 - 199 mg/dL [facility] Comment:Diabetes: >=200 mg/d L plus symptoms Blood Urea Nitrogen 24(H) 8 - 18 mg/dL [facility] Creatinine 0.85 0.70 - 1.20 mg/dL [facility] [...] 15 mmol/L [facility] Calcium 8.7 8.5 - 10.5 mg/dL [facility] Est Glomerular Filtration Rate 65 >=60 mL/min/1. 73 m?? [facility] Comment: The eGFR was calculated using the CKD-EPI equation. As with all creatinine based estimates of kidney function, eGFR values calculated with the CKD-EPI equation are not accurate in patients with acute kidney failure, extremes of body mass or the acutely ill. [email or web address] eGFR 76 >=60 mL/min/1. 73 m?? [facility] Comment: The eGFR was calculated using the CKD-EPI equation. As with all creatinine based estimates of kidney function, eGFR values calculated with the CKD-EPI equation are not accurate in patients with acute kidney failure, extremes of body mass or the acutely ill. [email or web address] Blood specimen (specimen) 05/06/2020 5:25 AM EDT 05/06/2020 5:25 AM EDT Narrative Resulting Agency Comment Spec In Lab Milagros Velazquez MD CHEMISTRY ORDERABLES Performing Organization Address [facility]/ZIP Co de Phone Number [facility] [place] [address] * Magnesium (05/06/2020 5:25 AM EDT) Magnesium 0.84 0.69 - 1.07 mmol/L [facility] Blood specimen (specimen) 05/06/2020 5:25 AM EDT 05/06/2020 5:25 AM EDT Narrative Resulting Agency Comment Spec In Lab Dale Dash MD CHEMISTRY ORDERABLES Performing Organization Address [facility] Co de Phone Number [facility] [place] [address] * POCT Glucose (05/06/2020 4:08 AM EDT) Glucose, POC 154 65 - 199 mg/dL [facility] Comment: Supplemental ranges: <140 mg/dL before meals <180 mg/dL all other times of the day Blood specimen (specimen) 05/06/2020 4:08 AM EDT 05/06/2020 4:08 AM EDT Milagros Velazquez MD POINT OF CARE TEST O RDERABLES Performing Organization Address [facility] Co de Phone Number [facility] [place] [address] * SCAN DOC: LAB (05/06/2020 12:00 AM EDT) Narrative 05/06/2020 12:00 AM EDT Ordered by an unspecified provider. Scanning Provider MEDIA MGR SCAN EXT O RDR/RSLT * POCT Glucose (05/05/2020 11:58 PM EDT) Glucose, POC 184 65 - 199 mg/dL [facility] Comment: Supplemental ranges: <140 mg/dL before meals <180 mg/dL all other times of the day Blood specimen (specimen) 05/05/2020 11:58 PM EDT 05/05/2020 11:58 PM EDT Milagros Velazquez MD POINT OF CARE TEST O ISAIAH Performing Organization Address [facility] Co de Phone Number [facility] [place] [address] * POCT Glucose (05/05/2020 8:18 PM EDT) Glucose, POC 173 65 - 199 mg/dL [facility] Comment: Supplemental ranges: <140 mg/dL before meals <180 mg/dL all other times of the day Blood specimen (specimen) 05/05/2020 8:18 PM EDT 05/05/2020 8:18 PM EDT Milagros Velazquez MD POINT OF CARE TEST O ISAIAH Performing Organization Address [facility] Co de Phone Number [facility] [place] [address] * POCT Glucose (05/05/2020 4:36 PM EDT) Glucose, POC 147 65 - 199 mg/dL [facility] Comment: Supplemental ranges: <140 mg/dL before meals <180 mg/dL all other times of the day Blood specimen (specimen) 05/05/2020 4:36 PM EDT 05/05/2020 4:36 PM EDT Milagros Velazquez MD POINT OF CARE TEST O RDERABLES Performing Organization Address City/[facility]/ZIP Co de Phone Number [facility] [place] [address] * (ABNORMAL) Hemogram (05/05/2020 2:13 PM EDT) White Blood Cell 9.3 4.0 - 9.5 x10(3)/mc L [facility] Red Blood Cell 2.85(L) 4.00 - 5.21 x10(6)/mc L [facility] Hemoglobin 7.7(L) 11.7 - 15.5 gm/dL [facility] Hematocrit 24.3(L) 35.7 - 45.8 % [facility] Mean Cell Volume 85.3 82.6 - 94.4 fL [facility] Mean Cell Hemoglobin 27.0(L) 27.1 - 32.0 pg [facility] Mean Cell Hemoglobin Concentration 31.7 31.7 - 35.0 gm/dL [facility] Platelet 386(H) 145 - 357 x10(3)/mc L [facility] RDW Standard Deviation 45.7 37.0 - 46.0 fL [facility] RDW coefficient of variation 14.8(H) 11.5 - 14.1 % [facility] Mean Platelet Volume 9.8 7.6 - 12.9 fL [facility] NRBC% auto 0.0 % [facility] NRBC Absolute 0.000 0.000 - 0.000 x10(3)/mc L [facility] Blood specimen (specimen) 05/05/2020 2:13 PM EDT 05/05/2020 2:18 PM EDT Narrative Resulting Agency Comment Spec In Lab Milagros Velazquez MD HEMATOLOGY ORDERABLE S [facility] [place] [address] * POCT Glucose (05/05/2020 12:12 PM EDT) Glucose, POC 177 65 - 199 mg/dL [facility] Comment: Supplemental ranges: <140 mg/dL before meals <180 mg/dL all other times of the day Blood specimen (specimen) 05/05/2020 12:12 PM EDT 05/05/2020 12:12 PM EDT Milagros Velazquez MD POINT OF CARE TEST O ISAIAH Performing Organization Address [facility] Co de Phone Number [facility] [place] [address] * POCT Glucose (05/05/2020 7:41 AM EDT) Glucose, POC 176 65 - 199 mg/dL [facility] Comment: Supplemental ranges: <140 mg/dL before meals <180 mg/dL all other times of the day Blood specimen (specimen) 05/05/2020 7:41 AM EDT 05/05/2020 7:41 AM EDT Milagros Velazquez MD POINT OF CARE TEST O ISAIAH Performing Organization Address [facility] de Phone Number [facility] [place] [address] * (ABNORMAL) Differential, Automated (05/05/2020 7:34 AM EDT) [facility] Neutrophil % 64.5 % [facility] Neutrophil Absolute 5.88 1.70 - 6.10 x10(3)/mc L [facility] Lymph % 24.1 % [facility] Lymphocytes Abs 2.2 0.9 - 3.2 x10(3)/mc L [facility] Monocyte % 7.0 % [facility] Monocyte Abs 0.6 0.3 - 0.9 x10(3)/mc L [facility] Eos % 2.7 % [facility] Eosinophils Abs 0.2 0.0 - 0.4 x10(3)/mc L [facility] Basophil % 1.2 % [facility] Baso Absolute 0.1 0.0 - 0.1 x10(3)/ L [facility] Immature Gran % 0.50 % [facility] Comment: Immature granulocytes(IG's)percentage and absolute count will include metamyelocytes, myelocytes, and promyelocytes. Blood smears from CBCs yielding IG's will be scanned manually for concordance. If this scan disagrees with the automated IG or if promyelocytes are noted, a manual differential will be performed. Immature Gran Absolute 0.05(H) 0.00 - 0.04 x10(3)/[facility] LABORATORY Blood specimen (specimen) 05/05/2020 7:34 AM EDT 05/05/2020 7:38 AM EDT Narrative Resulting Agency Comment Spec In Lab Wilner Esparza MD HEMATOLOGY ORDERABLE S [facility] [place] [address] * (ABNORMAL) Hemogram (05/05/2020 7:34 AM EDT) White Blood Cell 9.1 4.0 - 9.5 x10(3)/ L [facility] Red Blood Cell 2.76(L) 4.00 - 5.21 x10(6)/ L [facility] Hemoglobin 7.6(L) 11.7 - 15.5 gm/dL [facility] Hematocrit 23.6(L) 35.7 - 45.8 % [facility] Mean Cell Volume 85.5 82.6 - 94.4 fL [facility] Mean Cell Hemoglobin 27.5 27.1 - 32.0 pg [facility] Mean Cell Hemoglobin Concentration 32.2 31.7 - 35.0 gm/dL [facility] Platelet 386(H) 145 - 357 x10(3)/ L [facility] RDW Standard Deviation 46.0 37.0 - 46.0 fL [facility] RDW coefficient of variation 15.1(H) 11.5 - 14.1 % [facility] Mean Platelet Volume 9.9 7.6 - 12.9 fL [facility] NRBC% auto 0.0 % [facility] NRBC Absolute 0.000 0.000 - 0.000 x10(3)/mc L [facility] Blood specimen (specimen) 05/05/2020 7:34 AM EDT 05/05/2020 7:38 AM EDT Narrative Resulting Agency Comment Spec In Lab Wilner Esparza MD HEMATOLOGY ORDERABLE S [facility] [place] [address] * (ABNORMAL) Basic Metabolic Panel (non-fasting) (05/05/2020 7:34 AM EDT) Glucose 157 65 - 199 mg/dL [facility] Comment:Diabetes: >=200 mg/d L plus symptoms Blood Urea Nitrogen 28(H) 8 - 18 mg/dL [facility] Creatinine 0.74 0.70 - 1.20 mg/dL [facility] [...] questions. Chloride 105 98 - 107 mmol/L [facility] Carbon Dioxide 21(L) 22 - 31 mmol/L [facility] Anion Gap 11 5 - 15 mmol/L [facility] Calcium 8.5 8.5 - 10.5 mg/dL [facility] Est Glomerular Filtration Rate 77 >=60 mL/min/1. 73 m?? [facility] Comment: The eGFR was calculated using the CKD-EPI equation. As with all creatinine based estimates of kidney function, eGFR values calculated with the CKD-EPI equation are not accurate in patients with acute kidney failure, extremes of body mass or the acutely ill. [email or web address] eGFR 89 >=60 mL/min/1. 73 m?? [facility] Comment: The eGFR was calculated using the CKD-EPI equation. As with all creatinine based estimates of kidney function, eGFR values calculated with the CKD-EPI equation are not accurate in patients with acute kidney failure, extremes of body mass or the acutely ill. [email or web address] Blood specimen (specimen) 05/05/2020 7:34 AM EDT 05/05/2020 7:38 AM EDT Narrative Resulting Agency Comment Spec In Lab Milagros Velazquez MD CHEMISTRY ORDERABLES Performing Organization Address [facility] Co de Phone Number [facility] [place] [address] * Magnesium (05/05/2020 5:29 AM EDT) Magnesium 0.81 0.69 - 1.07 mmol/L [facility] Blood specimen (specimen) 05/05/2020 5:29 AM EDT 05/05/2020 5:54 AM EDT Narrative Resulting Agency Comment Spec In Lab Dale Dash MD CHEMISTRY ORDERABLES Performing Organization Address [facility] Co de Phone Number [facility] [place] [address] * POCT Glucose (05/05/2020 4:08 AM EDT) Glucose, POC 148 65 - 199 mg/dL [facility] Comment: Supplemental ranges: <140 mg/dL before meals <180 mg/dL all other times of the day Blood specimen (specimen) 05/05/2020 4:08 AM EDT 05/05/2020 4:08 AM EDT Milagros Velazquez MD POINT OF CARE TEST O ISAIAH Performing Organization Address City/[facility]/ZIP Co de Phone Number [facility] [place] [address] * POCT Glucose (05/04/2020 11:41 PM EDT) Glucose, POC 173 65 - 199 mg/dL [facility] Comment: Supplemental ranges: <140 mg/dL before meals <180 mg/dL all other times of the day Blood specimen (specimen) 05/04/2020 11:41 PM EDT 05/04/2020 11:41 PM EDT Milagros Velazquez MD POINT OF CARE TEST O ISAIAH Performing Organization Address [facility] Co de Phone Number [facility] [place] [address] * (ABNORMAL) Hemogram (05/04/2020 8:12 PM EDT) White Blood Cell 11.8(H) 4.0 - 9.5 x10(3)/mc L [facility] Red Blood Cell 3.02(L) 4.00 - 5.21 x10(6)/mc L [facility] Hemoglobin 8.2(L) 11.7 - 15.5 gm/dL [facility] Hematocrit 25.8(L) 35.7 - 45.8 % [facility] Mean Cell Volume 85.4 82.6 - 94.4 fL [facility] Mean Cell Hemoglobin 27.2 27.1 - 32.0 pg [facility] Mean Cell Hemoglobin Concentration 31.8 31.7 - 35.0 gm/dL [facility] Platelet 418(H) 145 - 357 x10(3)/mc L [facility] RDW Standard Deviation 45.9 37.0 - 46.0 fL [facility] RDW coefficient of variation 15.1(H) 11.5 - 14.1 % [facility] Mean Platelet Volume 10.0 7.6 - 12.9 fL [facility] NRBC% auto 0.0 % [facility] NRBC Absolute 0.000 0.000 - 0.000 x10(3)/mc L [facility] Blood specimen (specimen) 05/04/2020 8:12 PM EDT 05/04/2020 8:36 PM EDT Narrative Resulting Agency Comment Spec In Lab Milagros Velazquez MD HEMATOLOGY ORDERABLE S Performing Organization Address [facility] de Phone Number [facility] [place] [address] * POCT Glucose (05/04/2020 7:45 PM EDT) Glucose, POC 178 65 - 199 mg/dL [facility] Comment: Supplemental ranges: <140 mg/dL before meals <180 mg/dL all other times of the day Blood specimen (specimen) 05/04/2020 7:45 PM EDT 05/04/2020 7:45 PM EDT Milagros Velazquez MD POINT OF CARE TEST O RDERABLES Performing Organization Address [facility] de Phone Number [facility] [place] [address] * POCT Glucose (05/04/2020 4:19 PM EDT) Glucose, POC 160 65 - 199 mg/dL [facility] Comment: Supplemental ranges: <140 mg/dL before meals <180 mg/dL all other times of the day Blood specimen (specimen) 05/04/2020 4:19 PM EDT 05/04/2020 4:19 PM EDT Milagros Velazquez MD POINT OF CARE TEST O RDERABLES Performing Organization Address [facility]/State/ZIP Co de Phone Number [facility] [place] [address] * (ABNORMAL) Hemogram (05/04/2020 2:26 PM EDT) [facility] White Blood Cell 10.6(H) 4.0 - 9.5 x10(3)/mc L [facility] Red Blood Cell 3.04(L) 4.00 - 5.21 x10(6)/mc L [facility] Hemoglobin 8.3(L) 11.7 - 15.5 gm/dL [facility] Hematocrit 26.1(L) 35.7 - 45.8 % [facility] Mean Cell Volume 85.9 82.6 - 94.4 fL [facility] Mean Cell Hemoglobin 27.3 27.1 - 32.0 pg [facility] Mean Cell Hemoglobin Concentration 31.8 31.7 - 35.0 gm/dL [facility] Platelet 474(H) 145 - 357 x10(3)/mc L [facility] RDW Standard Deviation 46.4(H) 37.0 - 46.0 fL [facility] RDW coefficient of variation 15.0(H) 11.5 - 14.1 % [facility] Mean Platelet Volume 10.4 7.6 - 12.9 fL [facility] NRBC% auto 0.0 % [facility] NRBC Absolute 0.000 0.000 - 0.000 x10(3)/ L [facility] Blood specimen (specimen) 05/04/2020 2:26 PM EDT 05/04/2020 2:42 PM EDT Narrative Resulting Agency Comment Spec In Lab Milagros Velazquez MD HEMATOLOGY ORDERABLE S [facility] [place] [address] * POCT Glucose (05/04/2020 11:36 AM EDT) Glucose, POC 174 65 - 199 mg/dL [facility] Comment: Supplemental ranges: <140 mg/dL before meals <180 mg/dL all other times of the day Blood specimen (specimen) 05/04/2020 11:36 AM EDT 05/04/2020 11:36 AM EDT Milagros Velazquez MD POINT OF CARE TEST O RDERABLES Performing Organization Address [facility] de Phone Number [facility] [place] [address] * POCT Glucose (05/04/2020 8:19 AM EDT) [facility] Glucose, POC 167 65 - 199 mg/dL [facility] Comment: Supplemental ranges: <140 mg/dL before meals <180 mg/dL all other times of the day Blood specimen (specimen) 05/04/2020 8:19 AM EDT 05/04/2020 8:19 AM EDT Milagros Velazquez MD POINT OF CARE TEST O RDERATOAN Performing Organization Address [facility] de Phone Number [facility] [place] [address] * (ABNORMAL) Differential, Automated (05/04/2020 5:18 AM EDT) [facility] Neutrophil % 64.3 % [facility] Neutrophil Absolute 7.33(H) 1.70 - 6.10 x10(3)/mc L [facility] Lymph % 23.3 % [facility] Lymphocytes Abs 2.7 0.9 - 3.2 x10(3)/mc L [facility] Monocyte % 7.4 % [facility] Monocyte Abs 0.8 0.3 - 0.9 x10(3)/mc L [facility] Eos % 3.4 % [facility] Eosinophils Abs 0.4 0.0 - 0.4 x10(3)/mc L [facility] Basophil % 1.1 % [facility] Baso Absolute 0.1 0.0 - 0.1 x10(3)/[facility] LABORATORY [...] Immature Gran Absolute 0.06(H) 0.00 - 0.04 x10(3)/[facility] LABORATORY Blood specimen (specimen) 05/04/2020 5:18 AM EDT 05/04/2020 5:40 AM EDT Narrative Resulting Agency Comment Spec In Lab Davon Leung MD HEMATOLOGY ORDERABLE S Performing Organization Address City/State/[facility] Co de Phone Number [facility] [place] [address] * (ABNORMAL) Hemogram (05/04/2020 5:18 AM EDT) White Blood Cell 11.4(H) 4.0 - 9.5 x10(3)/[facility] LABORATORY Red Blood Cell 2.97(L) 4.00 - 5.21 x10(6)/[facility]ATORY Hemoglobin 8.0(L) 11.7 - 15.5 gm/dL [facility] Hematocrit 25.6(L) 35.7 - 45.8 % [facility] Mean Cell Volume 86.2 82.6 - 94.4 fL [facility] Mean Cell Hemoglobin 26.9(L) 27.1 - 32.0 pg [facility] Mean Cell Hemoglobin Concentration 31.3(L) 31.7 - 35.0 gm/dL [facility] Platelet 415(H) 145 - 357 x10(3)/[facility] LABORATORY RDW Standard Deviation 47.3(H) 37.0 - 46.0 fL [facility] RDW coefficient of variation 15.2(H) 11.5 - 14.1 % [facility] Mean Platelet Volume 10.0 7.6 - 12.9 fL [facility] NRBC% auto 0.0 % [facility] NRBC Absolute 0.000 0.000 - 0.000 x10(3)/mc L [facility] Blood specimen (specimen) 05/04/2020 5:18 AM EDT 05/04/2020 5:40 AM EDT Narrative Resulting Agency Comment Spec In Lab Davon Leung MD HEMATOLOGY ORDERABLE S Performing Organization Address [facility]/ZIP Co de Phone Number [facility] [place] [address] * Magnesium (05/04/2020 5:18 AM EDT) Magnesium 0.97 0.69 - 1.07 mmol/L [facility] Blood specimen (specimen) 05/04/2020 5:18 AM EDT 05/04/2020 5:40 AM EDT Narrative Resulting Agency Comment Spec In Lab Dale Dash MD CHEMISTRY ORDERABLES Performing Organization Address [facility]/ZIP Co de Phone Number [facility] [place] [address] * (ABNORMAL) Comprehensive metabolic panel (non-fasting) (05/04/2020 5:18 AM EDT) Glucose 151 65 - 199 mg/dL [facility] Comment:Diabetes: >=200 mg/d L plus symptoms Blood Urea Nitrogen 33(H) 8 - 18 mg/dL [facility] Creatinine 0.92 0.70 - 1.20 mg/dL [facility] Sodium 136 135 - 145 mmol/L [facility] Potassium 4.3 3.5 - 5.0 mmol/L [facility] Comment: Please note: ??Patients with WBC >100,000 may have falsely elevated Potassium levels. ??For accurate Potassium quantification in these patients send serum separator tube (gold top) for subsequent determinations. ??Contact the Clinical Chemistry Laboratory if there are any questions. Chloride 105 98 - 107 mmol/L [facility] Carbon Dioxide 20(L) 22 - 31 mmol/L [facility] Anion Gap 11 5 - 15 mmol/L [facility] Calcium 8.9 8.5 - 10.5 mg/dL [facility] Protein, Total 6.0(L) 6.1 - 8.0 gm/dL [facility] Albumin 2.9(L) 3.2 - 5.2 gm/dL [facility] Aspartate Aminotransferase 12 0 - 30 unit/L [facility] Alanine Aminotransferase 11 0 - 30 unit/L [facility] Alkaline Phosphatase 133(H) 35 - 105 unit/L [facility] Bilirubin, Total 0.3 0.2 - 1.3 mg/dL [facility] Est Glomerular Filtration Rate 59(L) >=60 mL/min/1. 73 m?? [facility] Comment: The eGFR was calculated using the CKD-EPI equation. As with all creatinine based estimates of kidney function, eGFR values calculated with the CKD-EPI equation are not accurate in patients with acute kidney failure, extremes of body mass or the acutely ill. [email or web address] [facility] eGFR 69 >=60 mL/min/1. 73 m?? [facility] Comment: The eGFR was calculated using the CKD-EPI equation. As with all creatinine based estimates of kidney function, eGFR values calculated with the CKD-EPI equation are not accurate in patients with acute kidney failure, extremes of body mass or the acutely ill. [email or web address] Blood specimen (specimen) 05/04/2020 5:18 AM EDT 05/04/2020 5:40 AM EDT Narrative Resulting Agency Comment Spec In Lab Dale Dash MD CHEMISTRY ORDERABLES Performing Organization Address [facility] Co de Phone Number [facility] [place] [address] * POCT Glucose (05/04/2020 3:10 AM EDT) Glucose, POC 163 65 - 199 mg/dL [facility] Comment: Supplemental ranges: <140 mg/dL before meals <180 mg/dL all other times of the day Blood specimen (specimen) 05/04/2020 3:10 AM EDT 05/04/2020 3:10 AM EDT Milagros Velazquez MD POINT OF CARE TEST O RDERATOAN Performing Organization Address [facility] Co de Phone Number [facility] [place] [address] * POCT Glucose (05/04/2020 12:07 AM EDT) Glucose, POC 196 65 - 199 mg/dL [facility] Comment: Supplemental ranges: <140 mg/dL before meals <180 mg/dL all other times of the day Blood specimen (specimen) 05/04/2020 12:07 AM EDT 05/04/2020 12:07 AM EDT Milagros Velazquez MD POINT OF CARE TEST O RDERATOAN Performing Organization Address [facility] Co de Phone Number [facility] [place] [address] * (ABNORMAL) POCT Glucose (05/03/2020 7:53 PM EDT) Glucose, POC 214(H) 65 - 199 mg/dL [facility] Comment: Supplemental ranges: <140 mg/dL before meals <180 mg/dL all other times of the day Blood specimen (specimen) 05/03/2020 7:53 PM EDT 05/03/2020 7:53 PM EDT Milagros Velazquez MD POINT OF CARE TEST O RDERABLES Performing Organization Address City/[facility]/ZIP Co de Phone Number [facility] [place] [address] * POCT Glucose (05/03/2020 5:01 PM EDT) Glucose, POC 199 65 - 199 mg/dL [facility] Comment: Supplemental ranges: <140 mg/dL before meals <180 mg/dL all other times of the day Blood specimen (specimen) 05/03/2020 5:01 PM EDT 05/03/2020 5:01 PM EDT Milagros Velazquez MD POINT OF CARE TEST O POOLERATOAN Performing Organization Address [facility] Co de Phone Number [facility] [place] [address] * (ABNORMAL) Hemogram (05/03/2020 1:49 PM EDT) White Blood Cell 11.2(H) 4.0 - 9.5 x10(3)/mc L [facility] Red Blood Cell 3.20(L) 4.00 - 5.21 x10(6)/mc L [facility] Hemoglobin 8.7(L) 11.7 - 15.5 gm/dL [facility] Hematocrit 27.1(L) 35.7 - 45.8 % [facility] Mean Cell Volume 84.7 82.6 - 94.4 fL [facility] Mean Cell Hemoglobin 27.2 27.1 - 32.0 pg [facility] Mean Cell Hemoglobin Concentration 32.1 31.7 - 35.0 gm/dL [facility] Platelet 428(H) 145 - 357 x10(3)/mc L [facility] RDW Standard Deviation 45.1 37.0 - 46.0 fL [facility] RDW coefficient of variation 14.8(H) 11.5 - 14.1 % [facility] Mean Platelet Volume 9.7 7.6 - 12.9 fL [facility] NRBC% auto 0.0 % [facility] NRBC Absolute 0.000 0.000 - 0.000 x10(3)/mc L [facility] Blood specimen (specimen) 05/03/2020 1:49 PM EDT 05/03/2020 1:55 PM EDT Narrative Resulting Agency Comment Spec In Lab Milagros Velazquez MD HEMATOLOGY ORDERABLE S Performing Organization Address [facility]/ZIP Co de Phone Number [facility] [place] [address] * POCT Glucose (05/03/2020 11:45 AM EDT) Glucose, POC 155 65 - 199 mg/dL [facility] Comment: Supplemental ranges: <140 mg/dL before meals <180 mg/dL all other times of the day Blood specimen (specimen) 05/03/2020 11:45 AM EDT 05/03/2020 11:45 AM EDT Milagros Velazquez MD POINT OF CARE TEST O RDERABLES Performing Organization Address [facility]/ZIP Co de Phone Number [facility] [place] [address] * UPPER GI ENDOSCOPY (05/03/2020 9:48 AM EDT) UPPER GI ENDOSCOPY [facility] Endoscopy Procedure Date: 05/03/2020 9:48 AM ? Patient Name: Shannan Chaudhary ? Date of : 1940 ? Age: 79 ? Order #: [id number] ? Instrument Name: [id number] ? Procedure: ? Upper GI endoscopy Indications: ? Melena Providers: ? Brigitte Graf MD, Oscar Baird ? Jessica Heath, ? Teacher Lip Reading, Mauro Johnson MD: ? Medicines: ? Monitored [...] Glucose, POC 164 65 - 199 mg/dL [facility] Comment: Supplemental ranges: <140 mg/dL before meals <180 mg/dL all other times of the day Blood specimen (specimen) 05/03/2020 7:50 AM EDT 05/03/2020 7:50 AM EDT Milagros Velazquez MD POINT OF CARE TEST O RDERABLES Performing Organization Address City/[facility]/ZIP Co de Phone Number [facility] [place] [address] * (ABNORMAL) Differential, Automated (05/03/2020 5:08 AM EDT) Neutrophil % 69.6 % [facility] Neutrophil Absolute 9.11(H) 1.70 - 6.10 x10(3)/mc L [facility] Lymph % 19.6 % [facility] Lymphocytes Abs 2.6 0.9 - 3.2 x10(3)/mc L [facility] Monocyte % 6.7 % [facility] Monocyte Abs 0.9 0.3 - 0.9 x10(3)/mc L [facility] Eos % 2.8 % [facility] Eosinophils Abs 0.4 0.0 - 0.4 x10(3)/mc L [facility] Basophil % 0.8 % [facility] Baso Absolute 0.1 0.0 - 0.1 x10(3)/mc L [facility] Immature Gran % 0.50 % [facility] Comment: Immature granulocytes(IG's)percentage and absolute count will include metamyelocytes, myelocytes, and promyelocytes. Blood smears from CBCs yielding IG's will be scanned manually for concordance. If this scan disagrees with the automated IG or if promyelocytes are noted, a manual differential will be performed. Immature Gran Absolute 0.06(H) 0.00 - 0.04 x10(3)/mc L [facility] Blood specimen (specimen) 05/03/2020 5:08 AM EDT 05/03/2020 5:30 AM EDT Narrative Resulting Agency Comment Spec In Lab Davon Leung MD HEMATOLOGY ORDERABLE S [facility] [place] [address] * (ABNORMAL) Hemogram (05/03/2020 5:08 AM EDT) White Blood Cell 13.1(H) 4.0 - 9.5 x10(3)/mc L [facility] Red Blood Cell 3.04(L) 4.00 - 5.21 x10(6)/mc L [facility] Hemoglobin 8.3(L) 11.7 - 15.5 gm/dL [facility] Hematocrit 25.7(L) 35.7 - 45.8 % [facility] Mean Cell Volume 84.5 82.6 - 94.4 fL [facility] Mean Cell Hemoglobin 27.3 27.1 - 32.0 pg [facility] Mean Cell Hemoglobin Concentration 32.3 31.7 - 35.0 gm/dL [facility] Platelet 409(H) 145 - 357 x10(3)/mc L [facility] RDW Standard Deviation 45.7 37.0 - 46.0 fL [facility] RDW coefficient of variation 15.0(H) 11.5 - 14.1 % [facility] Mean Platelet Volume 10.0 7.6 - 12.9 fL [facility] NRBC% auto 0.0 % [facility] NRBC Absolute 0.000 0.000 - 0.000 x10(3)/mc L [facility] Blood specimen (specimen) 05/03/2020 5:08 AM EDT 05/03/2020 5:30 AM EDT Narrative Resulting Agency Comment Spec In Lab Davon Leung MD HEMATOLOGY ORDERABLE S Performing Organization Address [facility] Co de Phone Number [facility] [place] [address] * Magnesium (05/03/2020 5:08 AM EDT) Magnesium 0.82 0.69 - 1.07 mmol/L [facility] Blood specimen (specimen) 05/03/2020 5:08 AM EDT 05/03/2020 5:30 AM EDT Narrative Resulting Agency Comment Spec In Lab Dale Dash MD CHEMISTRY ORDERABLES Performing Organization Address [facility] Co de Phone Number [facility] [place] [address] * (ABNORMAL) Comprehensive metabolic panel (non-fasting) (05/03/2020 5:08 AM EDT) Glucose 164 65 - 199 mg/dL [facility] Comment:Diabetes: >=200 mg/d L plus symptoms Blood Urea Nitrogen 30(H) 8 - 18 mg/dL [facility] Creatinine 0.82 0.70 - 1.20 mg/dL [facility] Sodium 138 135 - 145 mmol/L [facility] Potassium 4.2 3.5 - 5.0 mmol/L [facility] Comment: Please note: ??Patients with WBC >100,000 may have falsely elevated Potassium levels. ??For accurate Potassium quantification in these patients send serum separator tube (gold top) for subsequent determinations. ??Contact the Clinical Chemistry Laboratory if there are any questions. Chloride 105 98 - 107 mmol/L [facility] Carbon Dioxide 21(L) 22 - 31 mmol/L [facility] Anion Gap 12 5 - 15 mmol/L [facility] Calcium 9.0 8.5 - 10.5 mg/dL [facility] Protein, Total 6.1 6.1 - 8.0 gm/dL [facility] Albumin 3.0(L) 3.2 - 5.2 gm/dL [facility] Aspartate Aminotransferase 7 0 - 30 unit/L [facility] Alanine Aminotransferase 8 0 - 30 unit/L [facility] Alkaline Phosphatase 136(H) 35 - 105 unit/L [facility] Bilirubin, Total 0.3 0.2 - 1.3 mg/dL [facility] Est Glomerular Filtration Rate 68 >=60 mL/min/1. 73 m?? [facility] Comment: The eGFR was calculated using the CKD-EPI equation. As with all creatinine based estimates of kidney function, eGFR values calculated with the CKD-EPI equation are not accurate in patients with acute kidney failure, extremes of body mass or the acutely ill. [email or web address] eGFR 79 >=60 mL/min/1. 73 m?? [facility] Comment: The eGFR was calculated using the CKD-EPI equation. As with all creatinine based estimates of kidney function, eGFR values calculated with the CKD-EPI equation are not accurate in patients with acute kidney failure, extremes of body mass or the acutely ill. [email or web address] Blood specimen (specimen) 05/03/2020 5:08 AM EDT 05/03/2020 5:30 AM EDT Narrative Resulting Agency Comment Spec In Lab Dale Dash MD CHEMISTRY ORDERABLES [facility] [place] [address] * POCT Glucose (05/03/2020 4:26 AM EDT) Glucose, POC 164 65 - 199 mg/dL [facility] Comment: Supplemental ranges: <140 mg/dL before meals <180 mg/dL all other times of the day Blood specimen (specimen) 05/03/2020 4:26 AM EDT 05/03/2020 4:26 AM EDT Milagros Velazquez MD POINT OF CARE TEST O ISAIAH Performing Organization Address [facility] Co de Phone Number [facility] [place] [address] * POCT Glucose (05/03/2020 12:12 AM EDT) Glucose, POC 175 65 - 199 mg/dL [facility] Comment: Supplemental ranges: <140 mg/dL before meals <180 mg/dL all other times of the day Blood specimen (specimen) 05/03/2020 12:12 AM EDT 05/03/2020 12:12 AM EDT Milagros Velazquez MD POINT OF CARE TEST O ISAIAH Performing Organization Address [facility] Co de Phone Number [facility] [place] [address] * (ABNORMAL) Hemogram (05/02/2020 8:57 PM EDT) White Blood Cell 12.9(H) 4.0 - 9.5 x10(3)/mc L [facility] Red Blood Cell 3.04(L) 4.00 - 5.21 x10(6)/mc L [facility] Hemoglobin 8.3(L) 11.7 - 15.5 gm/dL [facility] Hematocrit 25.9(L) 35.7 - 45.8 % [facility] Mean Cell Volume 85.2 82.6 - 94.4 fL [facility] Mean Cell Hemoglobin 27.3 27.1 - 32.0 pg [facility] Mean Cell Hemoglobin Concentration 32.0 31.7 - 35.0 gm/dL [facility] Platelet 413(H) 145 - 357 x10(3)/mc L [facility] RDW Standard Deviation 45.7 37.0 - 46.0 fL [facility] RDW coefficient of variation 14.8(H) 11.5 - 14.1 % [facility] Mean Platelet Volume 9.7 7.6 - 12.9 fL [facility] NRBC% auto 0.0 % [facility] NRBC Absolute 0.000 0.000 - 0.000 x10(3)/mc L [facility] Blood specimen (specimen) 05/02/2020 8:57 PM EDT 05/02/2020 9:08 PM EDT Narrative Resulting Agency Comment Spec In Lab Milagros Velazquez MD HEMATOLOGY ORDERABLE S Performing Organization Address [facility]/ZIP Co de Phone Number [facility] [place] [address] * (ABNORMAL) POCT Glucose (05/02/2020 7:52 PM EDT) Glucose, POC 246(H) 65 - 199 mg/dL [facility] Comment: Supplemental ranges: <140 mg/dL before meals <180 mg/dL all other times of the day Blood specimen (specimen) 05/02/2020 7:52 PM EDT 05/02/2020 7:52 PM EDT Milagros Velazquez MD POINT OF CARE TEST O RDERABLES Performing Organization Address [facility]/ZIP Co de Phone Number [facility] [place] [address] * (ABNORMAL) POCT Glucose (05/02/2020 4:12 PM EDT) Glucose, POC 227(H) 65 - 199 mg/dL [facility] Comment: Supplemental ranges: <140 mg/dL before meals <180 mg/dL all other times of the day Blood specimen (specimen) 05/02/2020 4:12 PM EDT 05/02/2020 4:12 PM EDT Milagros Velazquez MD POINT OF CARE TEST O RDERABLES [facility] [place] [address] * ABORH Recheck Status (05/02/2020 3:13 PM EDT) ABORH Type Recheck Completed [facility] Blood specimen (specimen) 05/02/2020 3:13 PM EDT 05/02/2020 3:17 PM EDT Narrative Resulting Agency Comment Spec In Lab Wilner Esparza MD BLOOD BANK LAB ORDER JAMIE Performing Organization Address City/[facility]/ZIP Co de Phone Number [facility] [place] [address] * Antibody screen (05/02/2020 3:13 PM EDT) Ab Screen Interp Negative [facility] Expires at [id number] on: 05/05/2020 [facility] Blood specimen (specimen) 05/02/2020 3:13 PM EDT 05/02/2020 3:17 PM EDT Narrative Resulting Agency Comment Spec In Lab Wilner Esparza MD BLOOD BANK LAB ORDER JAMIE [facility] [place] [address] * ABO/Rh Typing (05/02/2020 3:13 PM EDT) ABORH Type O Pos [facility] Blood specimen (specimen) 05/02/2020 3:13 PM EDT 05/02/2020 3:17 PM EDT Narrative Resulting Agency Comment Spec In Lab Wilner Esparza MD BLOOD BANK LAB ORDER JAMIE [facility] [place] [address] * (ABNORMAL) Hemogram (05/02/2020 3:13 PM EDT) White Blood Cell 11.8(H) 4.0 - 9.5 x10(3)/mc L [facility] Red Blood Cell 3.18(L) 4.00 - 5.21 x10(6)/mc L [facility] Hemoglobin 8.8(L) 11.7 - 15.5 gm/dL [facility] Hematocrit 27.1(L) 35.7 - 45.8 % [facility] Mean Cell Volume 85.2 82.6 - 94.4 fL [facility] Mean Cell Hemoglobin 27.7 27.1 - 32.0 pg [facility] Mean Cell Hemoglobin Concentration 32.5 31.7 - 35.0 gm/dL [facility] Platelet 420(H) 145 - 357 x10(3)/mc L [facility] RDW Standard Deviation 45.7 37.0 - 46.0 fL [facility] RDW coefficient of variation 14.7(H) 11.5 - 14.1 % [facility] Mean Platelet Volume 10.0 7.6 - 12.9 fL [facility] NRBC% auto 0.0 % [facility] NRBC Absolute 0.000 0.000 - 0.000 x10(3)/mc L [facility] Blood specimen (specimen) 05/02/2020 3:13 PM EDT 05/02/2020 3:26 PM EDT Narrative Resulting Agency Comment Spec In Lab Milagros Velazquez MD HEMATOLOGY ORDERABLE S Performing Organization Address City/[facility]/ZIP Co de Phone Number [facility] [place] [address] * (ABNORMAL) POCT Glucose (05/02/2020 11:32 AM EDT) Pathologist [facility] Glucose, POC 233(H) 65 - 199 mg/dL [facility] Comment: Supplemental ranges: <140 mg/dL before meals <180 mg/dL all other times of the day Blood specimen (specimen) 05/02/2020 11:32 AM EDT 05/02/2020 11:32 AM EDT Milagros Velazquez MD POINT OF CARE TEST O ISAIAH Performing Organization Address [facility] Co de Phone Number [facility] [place] [address] * POCT Glucose (05/02/2020 7:46 AM EDT) [facility] Glucose, POC 178 65 - 199 mg/dL [facility] Comment: Supplemental ranges: <140 mg/dL before meals <180 mg/dL all other times of the day Blood specimen (specimen) 05/02/2020 7:46 AM EDT 05/02/2020 7:46 AM EDT Milagros Velazquez MD POINT OF CARE TEST O ISAIAH Performing Organization Address [facility] de Phone Number [facility] [place] [address] * pro-Brain Natriuretic Peptide (05/02/2020 6:13 AM EDT) [facility] NT-proBNP 248 <=450 pg/mL [facility] Blood specimen (specimen) Venous Draw / Unknown 05/02/2020 6:13 AM EDT 05/02/2020 6:41 AM EDT Narrative Resulting Agency Comment Spec In Lab Milagros Velazquez MD CHEMISTRY ORDERABLES Performing Organization Address [facility] Co de Phone Number [facility] [place] [address] * (ABNORMAL) Differential, Automated (05/02/2020 6:13 AM EDT) Neutrophil % 71.3 % [facility] Neutrophil Absolute 9.88(H) 1.70 - 6.10 x10(3)/[facility] Lymph % 18.6 % [facility] Lymphocytes Abs 2.6 0.9 - 3.2 x10(3)/ L [facility] Monocyte % 6.5 % [facility] Monocyte Abs 0.9 0.3 - 0.9 x10(3)/[facility] Eos % 2.4 % [facility] Eosinophils Abs 0.3 0.0 - 0.4 x10(3)/[facility] Basophil % 0.6 % [facility] Baso Absolute 0.1 0.0 - 0.1 x10(3)/[facility] Immature Gran % 0.60 % [facility] Comment: Immature granulocytes(IG's)percentage and absolute count will include metamyelocytes, myelocytes, and promyelocytes. Blood smears from CBCs yielding IG's will be scanned manually for concordance. If this scan disagrees with the automated IG or if promyelocytes are noted, a manual differential will be performed. Immature Gran Absolute 0.09(H) 0.00 - 0.04 x10(3)/ L [facility] Blood specimen (specimen) 05/02/2020 6:13 AM EDT 05/02/2020 6:31 AM EDT Narrative Resulting Agency Comment Spec In Lab Davon Leung MD HEMATOLOGY ORDERABLE S [facility] [place] [address] * (ABNORMAL) Hemogram (05/02/2020 6:13 AM EDT) White Blood Cell 13.9(H) 4.0 - 9.5 x10(3)/ L [facility] Red Blood Cell 3.24(L) 4.00 - 5.21 x10(6)/ L [facility] Hemoglobin 8.9(L) 11.7 - 15.5 gm/dL [facility] Hematocrit 27.5(L) 35.7 - 45.8 % [facility] Mean Cell Volume 84.9 82.6 - 94.4 fL [facility] Mean Cell Hemoglobin 27.5 27.1 - 32.0 pg [facility] Mean Cell Hemoglobin Concentration 32.4 31.7 - 35.0 gm/dL [facility] Platelet 405(H) 145 - 357 x10(3)/mc L [facility] RDW Standard Deviation 45.0 37.0 - 46.0 fL [facility] RDW coefficient of variation 14.7(H) 11.5 - 14.1 % [facility] Mean Platelet Volume 10.2 7.6 - 12.9 fL [facility] NRBC% auto 0.0 % [facility] NRBC Absolute 0.000 0.000 - 0.000 x10(3)/mc L [facility] Blood specimen (specimen) 05/02/2020 6:13 AM EDT 05/02/2020 6:31 AM EDT Narrative Resulting Agency Comment Spec In Lab Davon Leung MD HEMATOLOGY ORDERABLE S Performing Organization Address City/[facility] Co de Phone Number [facility] [place] [address] * Magnesium (05/02/2020 6:13 AM EDT) Magnesium 0.85 0.69 - 1.07 mmol/L [facility] Blood specimen (specimen) 05/02/2020 6:13 AM EDT 05/02/2020 6:31 AM EDT Narrative Resulting Agency Comment Spec In Lab Dale Dash MD CHEMISTRY ORDERABLES Performing Organization Address City/[facility]/ZIP Co de Phone Number [facility] [place] [address] * (ABNORMAL) Comprehensive metabolic panel (non-fasting) (05/02/2020 6:13 AM EDT) Glucose 164 65 - 199 mg/dL [facility] Comment:Diabetes: >=200 mg/d L plus symptoms Blood Urea Nitrogen 28(H) 8 - 18 mg/dL [facility] Creatinine 0.78 0.70 - 1.20 mg/dL [facility] [...] questions. Chloride 105 98 - 107 mmol/L [facility] Carbon Dioxide 23 22 - 31 mmol/L [facility] Anion Gap 11 5 - 15 mmol/L [facility] Calcium 8.9 8.5 - 10.5 mg/dL [facility] Protein, Total 5.9(L) 6.1 - 8.0 gm/dL [facility] Albumin 3.0(L) 3.2 - 5.2 gm/dL [facility] Aspartate Aminotransferase 9 0 - 30 unit/L [facility] Alanine Aminotransferase 10 0 - 30 unit/L [facility] Alkaline Phosphatase 130(H) 35 - 105 unit/L [facility] Bilirubin, Total 0.4 0.2 - 1.3 mg/dL [facility] Est Glomerular Filtration Rate 72 >=60 mL/min/1. 73 m?? [facility] Comment: The eGFR was calculated using the CKD-EPI equation. As with all creatinine based estimates of kidney function, eGFR values calculated with the CKD-EPI equation are not accurate in patients with acute kidney failure, extremes of body mass or the acutely ill. [email or web address] eGFR 84 >=60 mL/min/1. 73 m?? [facility] Comment: The eGFR was calculated using the CKD-EPI equation. As with all creatinine based estimates of kidney function, eGFR values calculated with the CKD-EPI equation are not accurate in patients with acute kidney failure, extremes of body mass or the acutely ill. [email or web address] Blood specimen (specimen) 05/02/2020 6:13 AM EDT 05/02/2020 6:31 AM EDT Narrative Resulting Agency Comment Spec In Lab Dale Dash MD CHEMISTRY ORDERABLES Performing Organization Address [facility] Co de Phone Number [facility] [place] [address] * POCT Glucose (05/02/2020 3:20 AM EDT) Glucose, POC 183 65 - 199 mg/dL [facility] Comment: Supplemental ranges: <140 mg/dL before meals <180 mg/dL all other times of the day Blood specimen (specimen) 05/02/2020 3:20 AM EDT 05/02/2020 3:20 AM EDT Milagros Velazquez MD POINT OF CARE TEST O ISAIAH Performing Organization Address [facility] Co de Phone Number [facility] [place] [address] * (ABNORMAL) POCT Glucose (05/01/2020 11:42 PM EDT) Glucose, POC 224(H) 65 - 199 mg/dL [facility] Comment: Supplemental ranges: <140 mg/dL before meals <180 mg/dL all other times of the day Blood specimen (specimen) 05/01/2020 11:42 PM EDT 05/01/2020 11:42 PM EDT Milagros Velazquez MD POINT OF CARE TEST O RDERABLES Performing Organization Address [facility] Co de Phone Number [facility] [place] [address] * (ABNORMAL) POCT Glucose (05/01/2020 8:14 PM EDT) Glucose, POC 202(H) 65 - 199 mg/dL [facility] Comment: Supplemental ranges: <140 mg/dL before meals <180 mg/dL all other times of the day Blood specimen (specimen) 05/01/2020 8:14 PM EDT 05/01/2020 8:14 PM EDT Milagros Velazquez MD POINT OF CARE TEST O RDERABLES Performing Organization Address [facility] de Phone Number [facility] [place] [address] * (ABNORMAL) POCT Glucose (05/01/2020 4:51 PM EDT) Glucose, POC 204(H) 65 - 199 mg/dL [facility] Comment: Supplemental ranges: <140 mg/dL before meals <180 mg/dL all other times of the day Blood specimen (specimen) 05/01/2020 4:51 PM EDT 05/01/2020 4:51 PM EDT Milagros Velazquez MD POINT OF CARE TEST O RDERATOAN Performing Organization Address [facility] Co de Phone Number [facility] [place] [address] * (ABNORMAL) POCT Glucose (05/01/2020 11:52 AM EDT) Glucose, POC 213(H) 65 - 199 mg/dL [facility] Comment: Supplemental ranges: <140 mg/dL before meals <180 mg/dL all other times of the day Blood specimen (specimen) 05/01/2020 11:52 AM EDT 05/01/2020 11:52 AM EDT Milagros Velazquez MD POINT OF CARE TEST O RDERABLES [facility] [place] [address] * POCT Glucose (05/01/2020 7:40 AM EDT) Pathologist [facility] Glucose, POC 167 65 - 199 mg/dL [facility] Comment: Supplemental ranges: <140 mg/dL before meals <180 mg/dL all other times of the day Blood specimen (specimen) 05/01/2020 7:40 AM EDT 05/01/2020 7:40 AM EDT Dale Dash MD POINT OF CARE TEST O POOLERATOAN Performing Organization Address City/[facility]/ZIP Co de Phone Number [facility] [place] [address] * (ABNORMAL) Differential, Automated (05/01/2020 5:23 AM EDT) [facility] Neutrophil % 74.6 % [facility] Neutrophil Absolute 10.06(H) 1.70 - 6.10 x10(3)/mc L [facility] Lymph % 14.7 % [facility] Lymphocytes Abs 2.0 0.9 - 3.2 x10(3)/mc L [facility] Monocyte % 6.9 % [facility] Monocyte Abs 0.9 0.3 - 0.9 x10(3)/mc L [facility] Eos % 2.3 % [facility] Eosinophils Abs 0.3 0.0 - 0.4 x10(3)/mc L [facility] Basophil % 0.5 % [facility] Baso Absolute 0.1 0.0 - 0.1 x10(3)/mc L [facility] Immature Gran % 1.00 % [facility] Comment: Immature granulocytes(IG's)percentage and absolute count will include metamyelocytes, myelocytes, and promyelocytes. Blood smears from CBCs yielding IG's will be scanned manually for concordance. If this scan disagrees with the automated IG or if promyelocytes are noted, a manual differential will be performed. Immature Gran Absolute 0.14(H) 0.00 - 0.04 x10(3)/mc L [facility] Blood specimen (specimen) 05/01/2020 5:23 AM EDT 05/01/2020 5:40 AM EDT Narrative Resulting Agency Comment Spec In Lab Davon Leung MD HEMATOLOGY ORDERABLE S [facility] [place] [address] * (ABNORMAL) Hemogram (05/01/2020 5:23 AM EDT) White Blood Cell 13.5(H) 4.0 - 9.5 x10(3)/mc L [facility] Red Blood Cell 3.38(L) 4.00 - 5.21 x10(6)/mc L [facility] Hemoglobin 9.2(L) 11.7 - 15.5 gm/dL [facility] Hematocrit 28.6(L) 35.7 - 45.8 % [facility] Mean Cell Volume 84.6 82.6 - 94.4 fL [facility] Mean Cell Hemoglobin 27.2 27.1 - 32.0 pg [facility] Mean Cell Hemoglobin Concentration 32.2 31.7 - 35.0 gm/dL [facility] Platelet 372(H) 145 - 357 x10(3)/mc L [facility] RDW Standard Deviation 45.1 37.0 - 46.0 fL [facility] RDW coefficient of variation 14.7(H) 11.5 - 14.1 % [facility] Mean Platelet Volume 9.9 7.6 - 12.9 fL [facility] NRBC% auto 0.0 % [facility] NRBC Absolute 0.000 0.000 - 0.000 x10(3)/mc L [facility] Blood specimen (specimen) 05/01/2020 5:23 AM EDT 05/01/2020 5:40 AM EDT Narrative Resulting Agency Comment Spec In Lab Davon Leung MD HEMATOLOGY ORDERABLE S Performing Organization Address City/[facility] Co de Phone Number [facility] [place] [address] * Magnesium (05/01/2020 5:23 AM EDT) Magnesium 0.89 0.69 - 1.07 mmol/L [facility] Blood specimen (specimen) 05/01/2020 5:23 AM EDT 05/01/2020 5:40 AM EDT Narrative Resulting Agency Comment Spec In Lab Dale Dash MD CHEMISTRY ORDERABLES Performing Organization Address City/[facility] Co de Phone Number [facility] [place] [address] * (ABNORMAL) Comprehensive metabolic panel (non-fasting) (05/01/2020 5:23 AM EDT) Glucose 170 65 - 199 mg/dL [facility] Comment:Diabetes: >=200 mg/d L plus symptoms Blood Urea Nitrogen 29(H) 8 - 18 mg/dL [facility] Creatinine 0.77 0.70 - 1.20 mg/dL [facility] Sodium 136 135 - 145 mmol/L [facility] mg/dL [facility] Protein, Total 6.1 6.1 - 8.0 gm/dL [facility] Albumin 2.9(L) 3.2 - 5.2 gm/dL [facility] Aspartate Aminotransferase 10 0 - 30 unit/L [facility] Alanine Aminotransferase 11 0 - 30 unit/L [facility] Alkaline Phosphatase 140(H) 35 - 105 unit/L [facility] Bilirubin, Total 0.4 0.2 - 1.3 mg/dL [facility] Est Glomerular Filtration Rate 73 >=60 mL/min/1. 73 m?? [facility] Comment: The eGFR was calculated using the CKD-EPI equation. As with all creatinine based estimates of kidney function, eGFR values calculated with the CKD-EPI equation are not accurate in patients with acute kidney failure, extremes of body mass or the acutely ill. [email or web address] eGFR 85 >=60 mL/min/1. 73 m?? [facility] Comment: The eGFR was calculated using the CKD-EPI equation. As with all creatinine based estimates of kidney function, eGFR values calculated with the CKD-EPI equation are not accurate in patients with acute kidney failure, extremes of body mass or the acutely ill. [email or web address] Blood specimen (specimen) 05/01/2020 5:23 AM EDT 05/01/2020 5:40 AM EDT Narrative Resulting Agency Comment Spec In Lab Dale Dash MD CHEMISTRY ORDERABLES [facility] [place] [address] * (ABNORMAL) POCT Glucose (05/01/2020 4:07 AM EDT) Glucose, POC 204(H) 65 - 199 mg/dL [facility] Comment: Supplemental ranges: <140 mg/dL before meals <180 mg/dL all other times of the day Blood specimen (specimen) 05/01/2020 4:07 AM EDT 05/01/2020 4:07 AM EDT Dale Dash MD POINT OF CARE TEST O ISAIAH Performing Organization Address [facility] Co de Phone Number [facility] [place] [address] * POCT Glucose (04/30/2020 11:31 PM EDT) Glucose, POC 196 65 - 199 mg/dL [facility] Comment: Supplemental ranges: <140 mg/dL before meals <180 mg/dL all other times of the day Blood specimen (specimen) 04/30/2020 11:31 PM EDT 04/30/2020 11:31 PM EDT Dale Dash MD POINT OF CARE TEST O ISAIAH Performing Organization Address [facility] Co de Phone Number [facility] [place] [address] * (ABNORMAL) POCT Glucose (04/30/2020 8:15 PM EDT) Glucose, POC 210(H) 65 - 199 mg/dL [facility] Comment: Supplemental ranges: <140 mg/dL before meals <180 mg/dL all other times of the day Blood specimen (specimen) 04/30/2020 8:15 PM EDT 04/30/2020 8:15 PM EDT Dale Dash MD POINT OF CARE TEST O RDERATOAN Performing Organization Address [facility] Co de Phone Number [facility] [place] [address] * (ABNORMAL) POCT Glucose (04/30/2020 3:37 PM EDT) Glucose, POC 200(H) 65 - 199 mg/dL [facility] Comment: Supplemental ranges: <140 mg/dL before meals <180 mg/dL all other times of the day Blood specimen (specimen) 04/30/2020 3:37 PM EDT 04/30/2020 3:37 PM EDT Dale Dash MD POINT OF CARE TEST O RDROBIN Performing Organization Address [facility] Co de Phone Number [facility] [place] [address] * (ABNORMAL) POCT Glucose (04/30/2020 11:38 AM EDT) Glucose, POC 258(H) 65 - 199 mg/dL [facility] Comment: Supplemental ranges: <140 mg/dL before meals <180 mg/dL all other times of the day Blood specimen (specimen) 04/30/2020 11:38 AM EDT 04/30/2020 11:38 AM EDT Dale Dash MD POINT OF CARE TEST Gage COLON Performing Organization Address [facility] Co de Phone Number [facility] [place] [address] * EKG 12 Lead (04/30/2020 8:01 AM EDT) Ventricular rate 56 BPM MUSE SYSTEM Atrial Rate 56 BPM MUSE SYSTEM P-R Interval 158 ms MUSE SYSTEM QRS Duration 116 ms MUSE SYSTEM Q-T Interval 512 ms MUSE SYSTEM QTC Calculated (Bezet) 494 ms MUSE SYSTEM Calculated P Mercer 18 degrees MUSE SYSTEM Calculated R Mercer 9 degrees MUSE SYSTEM Calculated T Mercer -21 degrees MUSE SYSTEM INTERPRETATION Sinus bradycardia Right bundle branch block Abnormal ECG When compared with ECG of 21-APR-2020 18:47, Vent. rate has decreased BY ??41 BPM Left axis deviation is no longer Present I personally reviewed the tracing and edited the fellows interpretation Confirmed by fellow Ross Sood ([id number]) on 04/30/2020 10:25:30 AM Confirmed by MD Pandya Stanislav ([id number]) on 04/30/2020 4:45:51 PM MUSE SYSTEM 04/30/2020 8:01 AM EDT 04/30/2020 4:45 PM EDT Dale Dash MD ECG ORDERABLES MUSE SYSTEM * POCT Glucose (04/30/2020 7:18 AM EDT) Pathologist [facility] Glucose, POC 166 65 - 199 mg/dL [facility] Comment: Supplemental ranges: <140 mg/dL before meals <180 mg/dL all other times of the day Blood specimen (specimen) 04/30/2020 7:18 AM EDT 04/30/2020 7:18 AM EDT Dale Dash MD POINT OF CARE TEST O RDERABLES Performing Organization Address City/[facility]/ZIP Co de Phone Number [facility] [place] [address] * (ABNORMAL) Differential, Automated (04/30/2020 6:36 AM EDT) [facility] Neutrophil % 75.5 % [facility] Neutrophil Absolute 13.00(H) 1.70 - 6.10 x10(3)/mc L [facility] Lymph % 12.6 % [facility] Lymphocytes Abs 2.2 0.9 - 3.2 x10(3)/mc L [facility] Monocyte % 7.6 % [facility] Monocyte Abs 1.3(H) 0.3 - 0.9 x10(3)/mc L [facility] Eos % 2.6 % [facility] Eosinophils Abs 0.4 0.0 - 0.4 x10(3)/mc L [facility] Basophil % 0.5 % [facility] Baso Absolute 0.1 0.0 [...] Absolute 0.20(H) 0.00 - 0.04 x10(3)/mc L [facility] Blood specimen (specimen) 04/30/2020 6:36 AM EDT 04/30/2020 6:44 AM EDT Narrative Resulting Agency Comment Spec In Lab Davon Leung MD HEMATOLOGY ORDERABLE S [facility] [place] [address] * (ABNORMAL) Hemogram (04/30/2020 6:36 AM EDT) White Blood Cell 17.2(H) 4.0 - 9.5 x10(3)/mc L [facility] Red Blood Cell 3.60(L) 4.00 - 5.21 x10(6)/mc L [facility] Hemoglobin 9.7(L) 11.7 - 15.5 gm/dL [facility] Hematocrit 31.1(L) 35.7 - 45.8 % [facility] Mean Cell Volume 86.4 82.6 - 94.4 fL [facility] Mean Cell Hemoglobin 26.9(L) 27.1 - 32.0 pg [facility] Mean Cell Hemoglobin Concentration 31.2(L) 31.7 - 35.0 gm/dL [facility] Platelet 375(H) 145 - 357 x10(3)/mc L [facility] RDW Standard Deviation 47.2(H) 37.0 - 46.0 fL [facility] RDW coefficient of variation 14.9(H) 11.5 - 14.1 % [facility] Mean Platelet Volume 9.7 7.6 - 12.9 fL [facility] NRBC% auto 0.0 % [facility] NRBC Absolute 0.000 0.000 - 0.000 x10(3)/mc L [facility] Blood specimen (specimen) 04/30/2020 6:36 AM EDT 04/30/2020 6:44 AM EDT Narrative Resulting Agency Comment Spec In Lab Davon Leung MD HEMATOLOGY ORDERABLE S Performing Organization Address [facility] Co de Phone Number [facility] [place] [address] * Magnesium (04/30/2020 6:36 AM EDT) Magnesium 0.94 0.69 - 1.07 mmol/L [facility] Blood specimen (specimen) 04/30/2020 6:36 AM EDT 04/30/2020 6:44 AM EDT Narrative Resulting Agency Comment Spec In Lab Dale Dash MD CHEMISTRY ORDERABLES Performing Organization Address [facility] Co de Phone Number [facility] [place] [address] * (ABNORMAL) Comprehensive metabolic panel (non-fasting) (04/30/2020 6:36 AM EDT) Glucose 166 65 - 199 mg/dL [facility] Comment:Diabetes: >=200 mg/d L plus symptoms Blood Urea Nitrogen 34(H) 8 - 18 mg/dL [facility] Creatinine 1.05 0.70 - 1.20 mg/dL [facility] Sodium 135 135 - 145 mmol/L [facility] Potassium 3.8 3.5 - 5.0 mmol/L [facility] Comment: Please note: ??Patients with WBC >100,000 may have falsely elevated Potassium levels. ??For accurate Potassium quantification in these patients send serum separator tube (gold top) for subsequent determinations. ??Contact the Clinical Chemistry Laboratory if there are any questions. Chloride 100 98 - 107 mmol/L [facility] Carbon Dioxide 22 22 - 31 mmol/L [facility] Anion Gap 13 5 - 15 mmol/L [facility] Calcium 8.5 8.5 - 10.5 mg/dL [facility] Protein, Total 6.3 6.1 - 8.0 gm/dL [facility] Albumin 3.1(L) 3.2 - 5.2 gm/dL [facility] Aspartate Aminotransferase 14 0 - 30 unit/L [facility] Alanine Aminotransferase 12 0 - 30 unit/L [facility] Alkaline Phosphatase 152(H) 35 - 105 unit/L [facility] Bilirubin, Total 0.6 0.2 - 1.3 mg/dL [facility] Est Glomerular Filtration Rate 50(L) >=60 mL/min/1. 73 m?? [facility] Comment: The eGFR was calculated using the CKD-EPI equation. As with all creatinine based estimates of kidney function, eGFR values calculated with the CKD-EPI equation are not accurate in patients with acute kidney failure, extremes of body mass or the acutely ill. [email or web address] eGFR 58(L) >=60 mL/min/1. 73 m?? [facility] Comment: The eGFR was calculated using the CKD-EPI equation. As with all creatinine based estimates of kidney function, eGFR values calculated with the CKD-EPI equation are not accurate in patients with acute kidney failure, extremes of body mass or the acutely ill. [email or web address] Blood specimen (specimen) 04/30/2020 6:36 AM EDT 04/30/2020 6:44 AM EDT Narrative Resulting Agency Comment Spec In Lab Dale Dash MD CHEMISTRY ORDERABLES [facility] [place] [address] * POCT Glucose (04/30/2020 4:14 AM EDT) Glucose, POC 190 65 - 199 mg/dL [facility] Comment: Supplemental ranges: <140 mg/dL before meals <180 mg/dL all other times of the day Blood specimen (specimen) 04/30/2020 4:14 AM EDT 04/30/2020 4:14 AM EDT Dale Dash MD POINT OF CARE TEST O RDERATOAN Performing Organization Address City/[facility]/ZIP Co de Phone Number [facility] [place] [address] * (ABNORMAL) POCT Glucose (04/29/2020 11:08 PM EDT) Glucose, POC 218(H) 65 - 199 mg/dL [facility] Comment: Supplemental ranges: <140 mg/dL before meals <180 mg/dL all other times of the day Blood specimen (specimen) 04/29/2020 11:08 PM EDT 04/29/2020 11:08 PM EDT Dale Dash MD POINT OF CARE TEST O RDERATOAN Performing Organization Address [facility] Co de Phone Number [facility] [place] [address] * (ABNORMAL) POCT Glucose (04/29/2020 7:52 PM EDT) Glucose, POC 204(H) 65 - 199 mg/dL [facility] Comment: Supplemental ranges: <140 mg/dL before meals <180 mg/dL all other times of the day Blood specimen (specimen) 04/29/2020 7:52 PM EDT 04/29/2020 7:52 PM EDT Dale Dash MD POINT OF CARE TEST O RDERATOAN Performing Organization Address City/[facility]/ZIP Co de Phone Number [facility] [place] [address] * POCT Glucose (04/29/2020 4:17 PM EDT) Glucose, POC 165 65 - 199 mg/dL [facility] Comment: Supplemental ranges: <140 mg/dL before meals <180 mg/dL all other times of the day Blood specimen (specimen) 04/29/2020 4:17 PM EDT 04/29/2020 4:17 PM EDT Dale Dash MD POINT OF CARE TEST O RDERABLES Performing Organization Address City/[facility]/ZIP Co de Phone Number [facility] [place] [address] * Blood culture (04/29/2020 3:28 PM EDT) Blood Culture No growth at 5 days. [facility] Blood specimen (specimen) STRUCTURE OF RIGHT HAND / Unknown 04/29/2020 3:28 PM EDT 04/29/2020 4:21 PM EDT Narrative Resulting Agency Comment Spec In Lab Dale Dash MD MICROBIOLOGY - BLOOD ORDERABLES Performing Organization Address [facility] Co de Phone Number [facility] [place] [address] * Blood culture (04/29/2020 3:28 PM EDT) Blood Culture No growth at 5 days. [facility] Blood specimen (specimen) STRUCTURE OF LEFT FOREARM / Unknown 04/29/2020 3:28 PM EDT 04/29/2020 4:21 PM EDT Comment:#1 Narrative Resulting Agency Comment Spec In Lab Dale Dash MD MICROBIOLOGY - BLOOD ORDERABLES Performing Organization Address City/[facility]/ZIP Co de Phone Number [facility] [place] [address] * (ABNORMAL) POCT Glucose (04/29/2020 11:55 AM EDT) Glucose, POC 227(H) 65 - 199 mg/dL [facility] Comment: Supplemental ranges: <140 mg/dL before meals <180 mg/dL all other times of the day Blood specimen (specimen) 04/29/2020 11:55 AM EDT 04/29/2020 11:55 AM EDT Dale Dash MD POINT OF CARE TEST O ISAIAH Performing Organization Address City/[facility] Co de Phone Number [facility] [place] [address] * POCT Glucose (04/29/2020 7:38 AM EDT) Pathologist [facility] Glucose, POC 125 65 - 199 mg/dL [facility] Comment: Supplemental ranges: <140 mg/dL before meals <180 mg/dL all other times of the day Blood specimen (specimen) 04/29/2020 7:38 AM EDT 04/29/2020 7:38 AM EDT Dale Dash MD POINT OF CARE TEST O ISAIAH Performing Organization Address City/[facility] Co de Phone Number [facility] [place] [address] * (ABNORMAL) Differential, Automated (04/29/2020 4:17 AM EDT) [facility] Neutrophil % 78.6 % [facility] Neutrophil Absolute 14.16(H) 1.70 - 6.10 x10(3)/mc L [facility] Lymph % 10.5 % [facility] Lymphocytes Abs 1.9 0.9 - 3.2 x10(3)/mc L [facility] Monocyte % 6.4 % [facility] Monocyte Abs 1.2(H) 0.3 - 0.9 x10(3)/mc L [facility] Eos % 2.1 % [facility] Eosinophils Abs 0.4 0.0 - 0.4 x10(3)/mc L [facility] Basophil % 0.6 % [facility] Baso Absolute 0.1 0.0 - 0.1 x10(3)/mc L [facility] Immature Gran % 1.80 % [facility] Comment: Immature granulocytes(IG's)percentage and absolute count will include metamyelocytes, myelocytes, and promyelocytes. Blood smears from CBCs yielding IG's will be scanned manually for concordance. If this scan disagrees with the automated IG or if promyelocytes are noted, a manual differential will be performed. Immature Gran Absolute 0.32(H) 0.00 - 0.04 x10(3)/[facility] Blood specimen (specimen) 04/29/2020 4:17 AM EDT 04/29/2020 4:47 AM EDT Narrative Resulting Agency Comment Spec In Lab Daovn Leung MD HEMATOLOGY ORDERABLE S [facility] [place] [address] * (ABNORMAL) Hemogram (04/29/2020 4:17 AM EDT) White Blood Cell 18.0(H) 4.0 - 9.5 x10(3)/[facility] Red Blood Cell 3.63(L) 4.00 - 5.21 x10(6)/ L [facility] Hemoglobin 9.8(L) 11.7 - 15.5 gm/dL [facility] Hematocrit 30.1(L) 35.7 - 45.8 % [facility] Mean Cell Volume 82.9 82.6 - 94.4 fL [facility] Mean Cell Hemoglobin 27.0(L) 27.1 - 32.0 pg [facility] Mean Cell Hemoglobin Concentration 32.6 31.7 - 35.0 gm/dL [facility] Platelet 397(H) 145 - 357 x10(3)/[facility]AT[facility] RDW Standard Deviation 44.8 37.0 - 46.0 fL [facility] RDW coefficient of variation 14.8(H) 11.5 - 14.1 % [facility] Mean Platelet Volume 9.7 7.6 - 12.9 fL [facility] NRBC% auto 0.0 % [facility] NRBC Absolute 0.000 0.000 - 0.000 x10(3)/mc L [facility] Blood specimen (specimen) 04/29/2020 4:17 AM EDT 04/29/2020 4:47 AM EDT Narrative Resulting Agency Comment Spec In Lab Davon Leung MD HEMATOLOGY ORDERABLE S Performing Organization Address [facility] System/ZIP Co de Phone Number [facility] [place] [address] * Magnesium (04/29/2020 4:17 AM EDT) Magnesium 0.83 0.69 - 1.07 mmol/L [facility] Blood specimen (specimen) 04/29/2020 4:17 AM EDT 04/29/2020 4:47 AM EDT Narrative Resulting Agency Comment Spec In Lab Dale Dash MD CHEMISTRY ORDERABLES Performing Organization Address [facility]/ZIP Co de Phone Number [facility] [place] [address] * (ABNORMAL) Comprehensive metabolic panel (non-fasting) (04/29/2020 4:17 AM EDT) Glucose 152 65 - 199 mg/dL [facility] Comment:Diabetes: >=200 mg/d L plus symptoms Blood Urea Nitrogen 28(H) 8 - 18 mg/dL [facility] Comment:result rechecked-ssd Creatinine 0.96 0.70 - 1.20 mg/dL [facility] Sodium 136 135 - 145 mmol/L [facility] Potassium 3.9 3.5 - 5.0 mmol/L [facility] Comment: Please note: ??Patients with WBC >100,000 may have falsely elevated Potassium levels. ??For accurate Potassium quantification in these patients send serum separator tube (gold top) for subsequent determinations. ??Contact the Clinical Chemistry Laboratory if there are any questions. Chloride 103 98 - 107 mmol/L [facility] Carbon Dioxide 22 22 - 31 mmol/L [facility] Anion Gap 11 5 - 15 mmol/L [facility] Calcium 8.5 8.5 - 10.5 mg/dL [facility] Protein, Total 6.0(L) 6.1 - 8.0 gm/dL [facility] Albumin 2.8(L) 3.2 - 5.2 gm/dL [facility] Aspartate Aminotransferase 15 0 - 30 unit/L [facility] Alanine Aminotransferase 16 0 - 30 unit/L [facility] Alkaline Phosphatase 177(H) 35 - 105 unit/L [facility] Bilirubin, Total 0.5 0.2 - 1.3 mg/dL [facility] Est Glomerular Filtration Rate 56(L) >=60 mL/min/1. 73 m?? [facility] Comment: The eGFR was calculated using the CKD-EPI equation. As with all creatinine based estimates of kidney function, eGFR values calculated with the CKD-EPI equation are not accurate in patients with acute kidney failure, extremes of body mass or the acutely ill. [email or web address] eGFR 65 >=60 mL/min/1. 73 m?? [facility] Comment: The eGFR was calculated using the CKD-EPI equation. As with all creatinine based estimates of kidney function, eGFR values calculated with the CKD-EPI equation are not accurate in patients with acute kidney failure, extremes of body mass or the acutely ill. [email or web address] Blood specimen (specimen) 04/29/2020 4:17 AM EDT 04/29/2020 4:47 AM EDT Narrative Resulting Agency Comment Spec In Lab Dale Dash MD CHEMISTRY ORDERABLES [facility] [place] [address] * POCT Glucose (04/29/2020 4:16 AM EDT) Glucose, POC 152 65 - 199 mg/dL [facility] Comment: Supplemental ranges: <140 mg/dL before meals <180 mg/dL all other times of the day Blood specimen (specimen) 04/29/2020 4:16 AM EDT 04/29/2020 4:16 AM EDT Dale Dash MD POINT OF CARE TEST O RDERABLES [facility] [place] [address] * POCT Glucose (04/29/2020 12:34 AM EDT) Glucose, POC 171 65 - 199 mg/dL [facility] Comment: Supplemental ranges: <140 mg/dL before meals <180 mg/dL all other times of the day Blood specimen (specimen) 04/29/2020 12:34 AM EDT 04/29/2020 12:34 AM EDT Dale Dash MD POINT OF CARE TEST O RDERABLES Performing Organization Address City/[facility]/ZIP Co de Phone Number [facility] [place] [address] * (ABNORMAL) POCT Glucose (04/28/2020 8:36 PM EDT) Glucose, POC 205(H) 65 - 199 mg/dL [facility] Comment: Supplemental ranges: <140 mg/dL before meals <180 mg/dL all other times of the day Blood specimen (specimen) 04/28/2020 8:36 PM EDT 04/28/2020 8:36 PM EDT Dale Dash MD POINT OF CARE TEST O RDERATOAN [facility] [place] [address] * POCT Glucose (04/28/2020 4:05 PM EDT) Glucose, POC 185 65 - 199 mg/dL [facility] Comment: Supplemental ranges: <140 mg/dL before meals <180 mg/dL all other times of the day Blood specimen (specimen) 04/28/2020 4:05 PM EDT 04/28/2020 4:05 PM EDT Abiodun Chun MD POINT OF CARE TEST O RDERATOAN [facility] [place] [address] * POCT Glucose (04/28/2020 12:47 PM EDT) Glucose, POC 135 65 - 199 mg/dL [facility] Comment: Supplemental ranges: <140 mg/dL before meals <180 mg/dL all other times of the day Blood specimen (specimen) 04/28/2020 12:47 PM EDT 04/28/2020 12:47 PM EDT Abiodun Chun MD POINT OF CARE TEST O ISAIAH [facility] [place] [address] * POCT Glucose (04/28/2020 10:23 AM EDT) Glucose, POC 150 65 - 199 mg/dL [facility] Comment: Supplemental ranges: <140 mg/dL before meals <180 mg/dL all other times of the day Blood specimen (specimen) 04/28/2020 10:23 AM EDT 04/28/2020 10:23 AM EDT Abiodun Chun MD POINT OF CARE TEST O RDERABLES [facility] [place] [address] * CT Guided Drain Peritoneal (04/28/2020 10:20 [...] approximately 2-3 weeks (already ordered by IR). Ice Bag Assembler(s): Resident/Fellow: None. Attending: Dr. Jos Collins Procedure/Teaching [...] in approximately 2-3 weeks (alreadyordered by IR). Ice Bag Assembler(s): Resident/Fellow: None. Attending: Dr. Jos Collins Procedure/Teaching [...] EDT) Anaerobic Culture No anaerobic organisms isolated [facility] Fluid specimen (specimen) 04/28/2020 10:00 AM EDT 04/28/2020 10:50 AM EDT Comment:ARABELLA-HEPATIC ABSCESS S, CT GUIDED DRAIN PLACEMENT Narrative Resulting Agency Comment Spec In Lab Jeevan Black MD MICROBIOLOGY - GENER AL ORDERABLES [facility] [place] [address] * (ABNORMAL) Body Fluid Culture, Aerobic (04/28/2020 10:00 AM EDT) Body Fluid Culture One colony of Raoultella ornithinolytica (Klebsiella ornithinolytica)(A ) [facility] Gram Stain Few Neutrophils seen No microorganisms seen. (A) [facility] Organism Raoultella ornithinolytica (Klebsiella ornithinolytica)(A ) [facility] Fluid specimen (specimen) 04/28/2020 10:00 [...] AL ORDERABLES Performing Organization Address [facility]/ZIP Co de Phone Number [facility] [place] [address] * POCT Glucose (04/28/2020 8:10 AM EDT) Glucose, POC 134 65 - 199 mg/dL [facility] Comment: Supplemental ranges: <140 mg/dL before meals <180 mg/dL all other times of the day Blood specimen (specimen) 04/28/2020 8:10 AM EDT 04/28/2020 8:10 AM EDT Abiodun Chun MD POINT OF CARE TEST O RDERABLES Performing Organization Address [facility] Co de Phone Number [facility] [place] [address] * (ABNORMAL) pro-Brain Natriuretic Peptide (04/28/2020 4:05 AM EDT) Pathologist [facility] NT-proBNP 852(H) <=450 pg/mL [facility] Blood specimen (specimen) Venous Draw / Unknown 04/28/2020 4:05 AM EDT 04/28/2020 4:25 AM EDT Narrative Resulting Agency Comment Spec In Lab Hong Levi MD CHEMISTRY ORDERABLES Performing Organization Address City/[facility]/ZIP Co de Phone Number [facility] [place] [address] * (ABNORMAL) Differential, Automated (04/28/2020 4:05 AM EDT) Neutrophil % 71.3 % [facility] Neutrophil Absolute 10.55(H) 1.70 - 6.10 x10(3)/mc L [facility] Lymph % 17.3 % [facility] Lymphocytes Abs 2.6 0.9 - 3.2 x10(3)/[facility] Monocyte % 5.5 % [facility] Monocyte Abs 0.8 0.3 - 0.9 x10(3)/[facility] Eos % 2.8 % [facility] Eosinophils Abs 0.4 0.0 - 0.4 x10(3)/[facility] Basophil % 0.5 % [facility] Baso Absolute 0.1 0.0 - 0.1 x10(3)/[facility] Immature Gran % 2.60 % [facility] Comment: Immature granulocytes(IG's)percentage and absolute count will include metamyelocytes, myelocytes, and promyelocytes. Blood smears from CBCs yielding IG's will be scanned manually for concordance. If this scan disagrees with the automated IG or if promyelocytes are noted, a manual differential will be performed. Immature Gran Absolute 0.39(H) 0.00 - 0.04 x10(3)/[facility] Blood specimen (specimen) 04/28/2020 4:05 AM EDT 04/28/2020 4:23 AM EDT Narrative Resulting Agency Comment Spec In Lab Hong Levi MD HEMATOLOGY ORDERABLE S [facility] [place] [address] * (ABNORMAL) Hemogram (04/28/2020 4:05 AM EDT) White Blood Cell 14.8(H) 4.0 - 9.5 x10(3)/[facility] Red Blood Cell 3.90(L) 4.00 - 5.21 x10(6)/[facility] Hemoglobin 10.5(L) 11.7 - 15.5 gm/dL [facility] Hematocrit 32.5(L) 35.7 - 45.8 % [facility] Mean Cell Volume 83.3 82.6 - 94.4 fL [facility] Mean Cell Hemoglobin 26.9(L) 27.1 - 32.0 pg [facility] Mean Cell Hemoglobin Concentration 32.3 31.7 - 35.0 gm/dL [facility] Platelet 421(H) 145 - 357 x10(3)/mc L [facility] RDW Standard Deviation 44.7 37.0 - 46.0 fL [facility] RDW coefficient of variation 14.6(H) 11.5 - 14.1 % [facility] Mean Platelet Volume 9.6 7.6 - 12.9 fL [facility] NRBC% auto 0.0 % [facility] NRBC Absolute 0.000 0.000 - 0.000 x10(3)/mc L [facility] Blood specimen (specimen) 04/28/2020 4:05 AM EDT 04/28/2020 4:23 AM EDT Narrative Resulting Agency Comment Spec In Lab Hong Levi MD HEMATOLOGY ORDERABLE S Performing Organization Address [facility] Co de Phone Number [facility] [place] [address] * Magnesium (04/28/2020 4:05 AM EDT) Magnesium 0.78 0.69 - 1.07 mmol/L [facility] Blood specimen (specimen) 04/28/2020 4:05 AM EDT 04/28/2020 4:23 AM EDT Narrative Resulting Agency Comment Spec In Lab Dale Dash MD CHEMISTRY ORDERABLES Performing Organization Address [facility] Co de Phone Number [facility] [place] [address] * (ABNORMAL) Comprehensive metabolic panel (non-fasting) (04/28/2020 4:05 AM EDT) Glucose 149 65 - 199 mg/dL [facility] Comment:Diabetes: >=200 mg/d L plus symptoms Blood Urea Nitrogen 16 8 - 18 mg/dL [facility] Creatinine 0.80 0.70 - 1.20 mg/dL [facility] Sodium 137 135 - 145 mmol/L [facility] Potassium 3.5 3.5 - 5.0 mmol/L [facility] Comment: Please note: ??Patients with WBC >100,000 may have falsely elevated Potassium levels. ??For accurate Potassium quantification in these patients send serum separator tube (gold top) for subsequent determinations. ??Contact the Clinical Chemistry Laboratory if there are any questions. Chloride 105 98 - 107 mmol/L [facility] Carbon Dioxide 21(L) 22 - 31 mmol/L [facility] Anion Gap 11 5 - 15 mmol/L [facility] Calcium 8.7 8.5 - 10.5 mg/dL [facility] Protein, Total 6.3 6.1 - 8.0 gm/dL [facility] Albumin 3.0(L) 3.2 - 5.2 gm/dL [facility] Aspartate Aminotransferase 12 0 - 30 unit/L [facility] Alanine Aminotransferase 12 0 - 30 unit/L [facility] Alkaline Phosphatase 201(H) 35 - 105 unit/L [facility] Bilirubin, Total 0.4 0.2 - 1.3 mg/dL [facility] Est Glomerular Filtration Rate 70 >=60 mL/min/1. 73 m?? [facility] Comment: The eGFR was calculated using the CKD-EPI equation. As with all creatinine based estimates of kidney function, eGFR values calculated with the CKD-EPI equation are not accurate in patients with acute kidney failure, extremes of body mass or the acutely ill. [email or web address] eGFR 81 >=60 mL/min/1. 73 m?? [facility] Comment: The eGFR was calculated using the CKD-EPI equation. As with all creatinine based estimates of kidney function, eGFR values calculated with the CKD-EPI equation are not accurate in patients with acute kidney failure, extremes of body mass or the acutely ill. [email or web address] Blood specimen (specimen) 04/28/2020 4:05 AM EDT 04/28/2020 4:23 AM EDT Narrative Resulting Agency Comment Spec In Lab Dale Dash MD CHEMISTRY ORDERABLES Performing Organization Address City/[facility] Co de Phone Number [facility] [place] [address] * POCT Glucose (04/28/2020 3:28 AM EDT) Glucose, POC 161 65 - 199 mg/dL [facility] Comment: Supplemental ranges: <140 mg/dL before meals <180 mg/dL all other times of the day Blood specimen (specimen) 04/28/2020 3:28 AM EDT 04/28/2020 3:28 AM EDT Abiodun Chun MD POINT OF CARE TEST O RDERABLES Performing Organization Address [facility] Co de Phone Number [facility] [place] [address] * (ABNORMAL) POCT Glucose (04/27/2020 11:33 PM EDT) Glucose, POC 205(H) 65 - 199 mg/dL [facility] Comment: Supplemental ranges: <140 mg/dL before meals <180 mg/dL all other times of the day Blood specimen (specimen) 04/27/2020 11:33 PM EDT 04/27/2020 11:33 PM EDT Abiodun Chun MD POINT OF CARE TEST O RDERABLES Performing Organization Address City/[facility]/ZIP Co de Phone Number [facility] [place] [address] * (ABNORMAL) POCT Glucose (04/27/2020 8:03 PM EDT) Glucose, POC 274(H) 65 - 199 mg/dL [facility] Comment: Supplemental ranges: <140 mg/dL before meals <180 mg/dL all other times of the day Blood specimen (specimen) 04/27/2020 8:03 PM EDT 04/27/2020 8:03 PM EDT Abiodun Chun MD POINT OF CARE TEST O RDERABLES Performing Organization Address [facility] Co de Phone Number [facility] [place] [address] * POCT Glucose (04/27/2020 4:23 PM EDT) Glucose, POC 155 65 - 199 mg/dL [facility] Comment: Supplemental ranges: <140 mg/dL before meals <180 mg/dL all other times of the day Blood specimen (specimen) 04/27/2020 4:23 PM EDT 04/27/2020 4:23 PM EDT Abiodun Chun MD POINT OF CARE TEST O RDROBIN Performing Organization Address [facility] Co de Phone Number [facility] [place] [address] * CT Abdomen & Pelvis w Contrast [...] Electronically signed by: Logan Sanabria [facility] ([phone]), at 04/27/2020 4:29 PM Narrative 04/27/2020 4:29 [...] administration of contrast. Administered 96.0 ml of [id number] mg/ml. Oral contrast was administered. COMPARISON: 04/18/2020 [...] * POCT Glucose (04/27/2020 11:59 AM EDT) [facility] Signature Glucose, POC 192 65 - 199 mg/dL [facility] Comment: Supplemental ranges: <140 mg/dL before meals <180 mg/dL all other times of the day Blood specimen (specimen) 04/27/2020 11:59 AM EDT 04/27/2020 11:59 AM EDT Abiodun Chun MD POINT OF CARE TEST O RDERABLES [facility] [place] [address] * XR Chest One View (04/27/2020 10:47 [...] Glucose, POC 138 65 - 199 mg/dL [facility] Comment: Supplemental ranges: <140 mg/dL before meals <180 mg/dL all other times of the day Blood specimen (specimen) 04/27/2020 7:43 AM EDT 04/27/2020 7:43 AM EDT Abiodun Chun MD POINT OF CARE TEST O RDERABLES [facility] [place] [address] * (ABNORMAL) Differential, Automated (04/27/2020 4:41 AM EDT) Pathologist [facility] Neutrophil % 70.7 % [facility] Neutrophil Absolute 10.64(H) 1.70 - 6.10 x10(3)/mc L [facility] Lymph % 14.9 % [facility] Lymphocytes Abs 2.2 0.9 - 3.2 x10(3)/mc L [facility] Monocyte % 6.2 % [facility] Monocyte Abs 0.9 0.3 - 0.9 x10(3)/mc L [facility] Eos % 3.3 % [facility] Eosinophils Abs 0.5(H) 0.0 - 0.4 x10(3)/mc L [facility] Basophil % 0.5 % [facility] Baso Absolute 0.1 0.0 - 0.1 x10(3)/mc L [facility] Immature Gran % 4.40 % [facility] Comment: Immature granulocytes(IG's)percentage and absolute count will include metamyelocytes, myelocytes, and promyelocytes. Blood smears from CBCs yielding IG's will be scanned manually for concordance. If this scan disagrees with the automated IG or if promyelocytes are noted, a manual differential will be performed. Immature Gran Absolute 0.67(H) 0.00 - 0.04 x10(3)/mc L [facility] Blood specimen (specimen) 04/27/2020 4:41 AM EDT 04/27/2020 4:54 AM EDT Narrative Resulting Agency Comment Spec In Lab Hong Levi MD HEMATOLOGY ORDERABLE S [facility] [place] [address] * (ABNORMAL) Hemogram (04/27/2020 4:41 AM EDT) White Blood Cell 15.1(H) 4.0 - 9.5 x10(3)/ L [facility] Red Blood Cell 3.83(L) 4.00 - 5.21 x10(6)/[facility] Hemoglobin 10.3(L) 11.7 - 15.5 gm/dL [facility] Hematocrit 32.1(L) 35.7 - 45.8 % [facility] Mean Cell Volume 83.8 82.6 - 94.4 fL [facility] Mean Cell Hemoglobin 26.9(L) 27.1 - 32.0 pg [facility] Mean Cell Hemoglobin Concentration 32.1 31.7 - 35.0 gm/dL [facility] Platelet 422(H) 145 - 357 x10(3)/ L [facility] RDW Standard Deviation 44.9 37.0 - 46.0 [facility] RDW coefficient of variation 14.8(H) 11.5 - 14.1 % [facility] Mean Platelet Volume 9.6 7.6 - 12.9 fL [facility] NRBC% auto 0.1 % [facility] NRBC Absolute 0.020(H) 0.000 - 0.000 x10(3)/ L [facility] Blood specimen (specimen) 04/27/2020 4:41 AM EDT 04/27/2020 4:54 AM EDT Narrative Resulting Agency Comment Spec In Lab Hong Levi MD HEMATOLOGY ORDERABLE S Performing Organization Address City/[facility]/ZIP Co de Phone Number [facility] [place] [address] * Magnesium (04/27/2020 4:41 AM EDT) Magnesium 0.76 0.69 - 1.07 mmol/L [facility] Blood specimen (specimen) 04/27/2020 4:41 AM EDT 04/27/2020 4:54 AM EDT Narrative Resulting Agency Comment Spec In Lab Dale Dash MD CHEMISTRY ORDERABLES Performing Organization Address [facility] Co de Phone Number [facility] [place] [address] * (ABNORMAL) Comprehensive metabolic panel (non-fasting) (04/27/2020 4:41 AM EDT) Glucose 167 65 - 199 mg/dL [facility] Comment:Diabetes: >=200 mg/d L plus symptoms Blood Urea Nitrogen 12 8 - 18 mg/dL [facility] Creatinine 0.63(L) 0.70 - 1.20 mg/dL [facility] Sodium 138 135 - 145 mmol/L [facility] Potassium 3.5 3.5 - 5.0 mmol/L [facility] Comment: Please note: ??Patients with WBC >100,000 may have falsely elevated Potassium levels. ??For accurate Potassium quantification in these patients send serum separator tube (gold top) for subsequent determinations. ??Contact the Clinical Chemistry Laboratory if there are any questions. Chloride 103 98 - 107 mmol/L [facility] Carbon Dioxide 23 22 - 31 mmol/L [facility] Anion Gap 12 5 - 15 mmol/L [facility] Calcium 8.7 8.5 - 10.5 mg/dL [facility] Protein, Total 6.2 6.1 - 8.0 gm/dL [facility] Albumin 2.9(L) 3.2 - 5.2 gm/dL [facility] Aspartate Aminotransferase 12 0 - 30 unit/L [facility] Alanine Aminotransferase 13 0 - 30 unit/L [facility] Alkaline Phosphatase 230(H) 35 - 105 unit/L [facility] Bilirubin, Total 0.5 0.2 - 1.3 mg/dL [facility] Est Glomerular Filtration Rate 85 >=60 mL/min/1. 73 m?? [facility] Comment: The eGFR was calculated using the CKD-EPI equation. As with all creatinine based estimates of kidney function, eGFR values calculated with the CKD-EPI equation are not accurate in patients with acute kidney failure, extremes of body mass or the acutely ill. [email or web address] [email or web address] eGFR 99 >=60 mL/min/1. 73 m?? [facility] Comment: The eGFR was calculated using the CKD-EPI equation. As with all creatinine based estimates of kidney function, eGFR values calculated with the CKD-EPI equation are not accurate in patients with acute kidney failure, extremes of body mass or the acutely ill. [email or web address] [email or web address] Blood specimen (specimen) 04/27/2020 4:41 AM EDT 04/27/2020 4:54 AM EDT Narrative Resulting Agency Comment Spec In Lab Dale Dash MD CHEMISTRY ORDERABLES [facility] [place] [address] * POCT Glucose (04/27/2020 4:12 AM EDT) Glucose, POC 170 65 - 199 mg/dL [facility] Comment: Supplemental ranges: <140 mg/dL before meals <180 mg/dL all other times of the day Blood specimen (specimen) 04/27/2020 4:12 AM EDT 04/27/2020 4:12 AM EDT Abiodun Chun MD POINT OF CARE TEST O RDERABLES Performing Organization Address [facility] Co de Phone Number [facility] [place] [address] * POCT Glucose (04/27/2020 12:14 AM EDT) Glucose, POC 187 65 - 199 mg/dL [facility] Comment: Supplemental ranges: <140 mg/dL before meals <180 mg/dL all other times of the day Blood specimen (specimen) 04/27/2020 12:14 AM EDT 04/27/2020 12:14 AM EDT Abiodun Chun MD POINT OF CARE TEST O RDERABLES Performing Organization Address [facility] de Phone Number [facility] [place] [address] * POCT Glucose (04/26/2020 8:19 PM EDT) Glucose, POC 186 65 - 199 mg/dL [facility] Comment: Supplemental ranges: <140 mg/dL before meals <180 mg/dL all other times of the day Blood specimen (specimen) 04/26/2020 8:19 PM EDT 04/26/2020 8:19 PM EDT Abiodun Chun MD POINT OF CARE TEST O RDERABLES Performing Organization Address [facility] Co de Phone Number [facility] [place] [address] * POCT Glucose (04/26/2020 4:52 PM EDT) Glucose, POC 162 65 - 199 mg/dL [facility] Comment: Supplemental ranges: <140 mg/dL before meals <180 mg/dL all other times of the day Blood specimen (specimen) 04/26/2020 4:52 PM EDT 04/26/2020 4:52 PM EDT Abiodun Chun MD POINT OF CARE TEST O RDERABLES Performing Organization Address [facility] Co de Phone Number [facility] [place] [address] * (ABNORMAL) POCT Glucose (04/26/2020 11:50 AM EDT) Glucose, POC 215(H) 65 - 199 mg/dL [facility] Comment: Supplemental ranges: <140 mg/dL before meals <180 mg/dL all other times of the day Blood specimen (specimen) 04/26/2020 11:50 AM EDT 04/26/2020 11:50 AM EDT Abiodun Chun MD POINT OF CARE TEST O RDERATOAN Performing Organization Address [facility] Co de Phone Number [facility] [place] [address] * POCT Glucose (04/26/2020 7:43 AM EDT) Glucose, POC 175 65 - 199 mg/dL [facility] Comment: Supplemental ranges: <140 mg/dL before meals <180 mg/dL all other times of the day Blood specimen (specimen) 04/26/2020 7:43 AM EDT 04/26/2020 7:43 AM EDT Abiodun Chun MD POINT OF CARE TEST O RDERATOAN Performing Organization Address [facility] Co de Phone Number [facility] [place] [address] * POCT Glucose (04/26/2020 5:07 AM EDT) Glucose, POC 163 65 - 199 mg/dL [facility] Comment: Supplemental ranges: <140 mg/dL before meals <180 mg/dL all other times of the day Blood specimen (specimen) 04/26/2020 5:07 AM EDT 04/26/2020 5:07 AM EDT Abiodun Chun MD POINT OF CARE TEST O RDERABLES Performing Organization Address City/[facility]/ZIP Co de Phone Number [facility] [place] [address] * (ABNORMAL) Differential, Automated (04/26/2020 4:42 AM EDT) Neutrophil % 66.7 % [facility] Neutrophil Absolute 9.28(H) 1.70 - 6.10 x10(3)/mc L [facility] Lymph % 16.8 % [facility] Lymphocytes Abs 2.3 0.9 - 3.2 x10(3)/ L [facility] Monocyte % 5.7 % [facility] Monocyte Abs 0.8 0.3 - 0.9 x10(3)/ L [facility] Eos % 3.7 % [facility] Eosinophils Abs 0.5(H) 0.0 - 0.4 x10(3)/ L [facility] Basophil % 0.8 % [facility] Baso Absolute 0.1 0.0 - 0.1 x10(3)/ L [facility] Immature Gran % 6.30 % [facility] Comment: Immature granulocytes(IG's)percentage and absolute count will include metamyelocytes, myelocytes, and promyelocytes. Blood smears from CBCs yielding IG's will be scanned manually for concordance. If this scan disagrees with the automated IG or if promyelocytes are noted, a manual differential will be performed. Immature Gran Absolute 0.88(H) 0.00 - 0.04 x10(3)/mc L [facility] Blood specimen (specimen) 04/26/2020 4:42 AM EDT 04/26/2020 4:54 AM EDT Narrative Resulting Agency Comment Spec In Lab Hong Levi MD HEMATOLOGY ORDERABLE S Performing Organization Address City/[facility]/ZIP Co de Phone Number [facility] [place] [address] * (ABNORMAL) Hemogram (04/26/2020 4:42 AM EDT) White Blood Cell 13.9(H) 4.0 - 9.5 x10(3)/mc L [facility] Red Blood Cell 3.72(L) 4.00 - 5.21 x10(6)/mc L [facility] Hemoglobin 10.0(L) 11.7 - 15.5 gm/dL [facility] Hematocrit 31.5(L) 35.7 - 45.8 % [facility] Mean Cell Volume 84.7 82.6 - 94.4 fL [facility] Mean Cell Hemoglobin 26.9(L) 27.1 - 32.0 pg [facility] Mean Cell Hemoglobin Concentration 31.7 31.7 - 35.0 gm/dL [facility] Platelet 398(H) 145 - 357 x10(3)/ L [facility] RDW Standard Deviation 46.0 37.0 - 46.0 [facility] RDW coefficient of variation 14.9(H) 11.5 - 14.1 % [facility] Mean Platelet Volume 9.2 7.6 - 12.9 [facility] NRBC% auto 0.2 % [facility] NRBC Absolute 0.030(H) 0.000 - 0.000 x10(3)/ L [facility] Blood specimen (specimen) 04/26/2020 4:42 AM EDT 04/26/2020 4:54 AM EDT Narrative Resulting Agency Comment Spec In Lab Hong Levi MD HEMATOLOGY ORDERABLE S [facility] [place] [address] * Magnesium (04/26/2020 4:42 AM EDT) Magnesium 0.86 0.69 - 1.07 mmol/L [facility] Blood specimen (specimen) 04/26/2020 4:42 AM EDT 04/26/2020 4:54 AM EDT Narrative Resulting Agency Comment Spec In Lab Dale Dash MD CHEMISTRY ORDERABLES [facility] [place] [address] * (ABNORMAL) Comprehensive metabolic panel (non-fasting) (04/26/2020 4:42 AM EDT) Glucose 172 65 - 199 mg/dL [facility] Comment:Diabetes: >=200 mg/d L plus symptoms Blood Urea Nitrogen 14 8 - 18 mg/dL [facility] Creatinine 0.67(L) 0.70 - 1.20 mg/dL [facility] Sodium 142 135 - 145 mmol/L [facility] Potassium 3.3(L) 3.5 - 5.0 mmol/L [facility] [...] mmol/L [facility] Anion Gap 13 5 - 15 mmol/L [facility] Calcium 8.6 8.5 - 10.5 mg/dL [facility] Protein, Total 6.3 6.1 - 8.0 gm/dL [facility] Albumin 2.8(L) 3.2 - 5.2 gm/dL [facility] Aspartate Aminotransferase 14 0 - 30 unit/L [facility] Alanine Aminotransferase 14 0 - 30 unit/L [facility] Alkaline Phosphatase 253(H) 35 - 105 unit/L [facility] Bilirubin, Total 0.4 0.2 - 1.3 mg/dL [facility] Est Glomerular Filtration Rate 84 >=60 mL/min/1. 73 m?? [facility] Comment: The eGFR was calculated using the CKD-EPI equation. As with all creatinine based estimates of kidney function, eGFR values calculated with the CKD-EPI equation are not accurate in patients with acute kidney failure, extremes of body mass or the acutely ill. [email or web address] eGFR 97 >=60 mL/min/1. 73 m?? [facility] Comment: The eGFR was calculated using the CKD-EPI equation. As with all creatinine based estimates of kidney function, eGFR values calculated with the CKD-EPI equation are not accurate in patients with acute kidney failure, extremes of body mass or the acutely ill. [email or web address] Blood specimen (specimen) 04/26/2020 4:42 AM EDT 04/26/2020 4:54 AM EDT Narrative Resulting Agency Comment Spec In Lab Dale Dash MD CHEMISTRY ORDERABLES Performing Organization Address City/[facility]/ZIP Co de Phone Number [facility] [place] [address] * (ABNORMAL) POCT Glucose (04/25/2020 10:39 PM EDT) Glucose, POC 215(H) 65 - 199 mg/dL [facility] Comment: Supplemental ranges: <140 mg/dL before meals <180 mg/dL all other times of the day Blood specimen (specimen) 04/25/2020 10:39 PM EDT 04/25/2020 10:39 PM EDT Abiodun Chun MD POINT OF CARE TEST O RDERABLES Performing Organization Address City/[facility]/ZIP Co de Phone Number [facility] [place] [address] * POCT Glucose (04/25/2020 8:54 PM EDT) Glucose, POC 175 65 - 199 mg/dL [facility] Comment: Supplemental ranges: <140 mg/dL before meals <180 mg/dL all other times of the day Blood specimen (specimen) 04/25/2020 8:54 PM EDT 04/25/2020 8:54 PM EDT Abiodun Chun MD POINT OF CARE TEST O RDERABLES Performing Organization Address City/[facility]/ZIP Co de Phone Number [facility] [place] [address] * POCT Glucose (04/25/2020 7:43 PM EDT) Glucose, POC 198 65 - 199 mg/dL [facility] Comment: Supplemental ranges: <140 mg/dL before meals <180 mg/dL all other times of the day Blood specimen (specimen) 04/25/2020 7:43 PM EDT 04/25/2020 7:43 PM EDT Abiodun Chun MD POINT OF CARE TEST O RDERATOAN Performing Organization Address [facility]/ZIP Co de Phone Number [facility] [place] [address] * POCT Glucose (04/25/2020 5:35 PM EDT) Glucose, POC 188 65 - 199 mg/dL [facility] Comment: Supplemental ranges: <140 mg/dL before meals <180 mg/dL all other times of the day Blood specimen (specimen) 04/25/2020 5:35 PM EDT 04/25/2020 5:35 PM EDT Abiodun Chun MD POINT OF CARE TEST O RDERABLES [facility] [place] [address] * POCT Glucose (04/25/2020 12:21 PM EDT) Glucose, POC 199 65 - 199 mg/dL [facility] Comment: Supplemental ranges: <140 mg/dL before meals <180 mg/dL all other times of the day Blood specimen (specimen) 04/25/2020 12:21 PM EDT 04/25/2020 12:21 PM EDT Abiodun Chun MD POINT OF CARE TEST O RDERABLES Performing Organization Address City/[facility] Co de Phone Number [facility] [place] [address] * POCT Glucose (04/25/2020 7:37 AM EDT) [facility] Glucose, POC 147 65 - 199 mg/dL [facility] Comment: Supplemental ranges: <140 mg/dL before meals <180 mg/dL all other times of the day Blood specimen (specimen) 04/25/2020 7:37 AM EDT 04/25/2020 7:37 AM EDT Abiodun Chun MD POINT OF CARE TEST O RDERABLES Performing Organization Address [facility] Co de Phone Number [facility] [place] [address] * (ABNORMAL) Differential, Automated (04/25/2020 5:05 AM EDT) [facility] Neutrophil % 63.5 % [facility] Neutrophil Absolute 8.95(H) 1.70 - 6.10 x10(3)/mc L [facility] Lymph % 18.9 % [facility] Lymphocytes Abs 2.7 0.9 - 3.2 x10(3)/mc L [facility] Monocyte % 6.8 % [facility] Monocyte Abs 1.0(H) 0.3 - 0.9 x10(3)/mc L [facility] Eos % 3.3 % [facility] Eosinophils Abs 0.5(H) 0.0 - 0.4 x10(3)/mc L [facility] Basophil % 0.9 % [facility] Baso Absolute 0.1 0.0 - 0.1 x10(3)/mc L [facility] Immature Gran % 6.60 % [facility] Comment: Immature granulocytes(IG's)percentage and absolute count will include metamyelocytes, myelocytes, and promyelocytes. Blood smears from CBCs yielding IG's will be scanned manually for concordance. If this scan disagrees with the automated IG or if promyelocytes are noted, a manual differential will be performed. Immature Gran Absolute 0.93(H) 0.00 - 0.04 x10(3)/ L [facility] Blood specimen (specimen) 04/25/2020 5:05 AM EDT 04/25/2020 5:20 AM EDT Narrative Resulting Agency Comment Spec In Lab Hong Levi MD HEMATOLOGY ORDERABLE S Performing Organization Address City/State/[facility] Co de Phone Number [facility] [place] [address] * (ABNORMAL) Hemogram (04/25/2020 5:05 AM EDT) White Blood Cell 14.1(H) 4.0 - 9.5 x10(3)/ L [facility] Red Blood Cell 3.67(L) 4.00 - 5.21 x10(6)/mc L [facility] Hemoglobin 10.0(L) 11.7 - 15.5 gm/dL [facility] Hematocrit 30.9(L) 35.7 - 45.8 % [facility] Mean Cell Volume 84.2 82.6 - 94.4 fL [facility] Mean Cell Hemoglobin 27.2 27.1 - 32.0 pg [facility] Mean Cell Hemoglobin Concentration 32.4 31.7 - 35.0 gm/dL [facility] Platelet 396(H) 145 - 357 x10(3)/ L [facility] RDW Standard Deviation 45.8 37.0 - 46.0 fL [facility] RDW coefficient of variation 15.0(H) 11.5 - 14.1 % [facility] Mean Platelet Volume 9.5 7.6 - 12.9 fL [facility] NRBC% auto 0.1 % [facility] NRBC Absolute 0.020(H) 0.000 - 0.000 x10(3)/mc L [facility] Blood specimen (specimen) 04/25/2020 5:05 AM EDT 04/25/2020 5:20 AM EDT Narrative Resulting Agency Comment Spec In Lab Hong Levi MD HEMATOLOGY ORDERABLE S Performing Organization Address [facility]/ZIP Co de Phone Number [facility] [place] [address] * Magnesium (04/25/2020 5:05 AM EDT) Magnesium 0.79 0.69 - 1.07 mmol/L [facility] Blood specimen (specimen) 04/25/2020 5:05 AM EDT 04/25/2020 5:19 AM EDT Narrative Resulting Agency Comment Spec In Lab Dale Dash MD CHEMISTRY ORDERABLES Performing Organization Address [facility]/ZIP Co de Phone Number [facility] [place] [address] * (ABNORMAL) Comprehensive metabolic panel (non-fasting) (04/25/2020 5:05 AM EDT) Glucose 138 65 - 199 mg/dL [facility] Comment:Diabetes: >=200 mg/d L plus symptoms Blood Urea Nitrogen 16 8 - 18 mg/dL [facility] Creatinine 0.69(L) 0.70 - 1.20 mg/dL [facility] Sodium 142 135 - 145 mmol/L [facility] Potassium 3.1(L) 3.5 - 5.0 mmol/L [facility] [...] 15 mmol/L [facility] Calcium 8.7 8.5 - 10.5 mg/dL [facility] Protein, Total 6.1 6.1 - 8.0 gm/dL [facility] Albumin 2.6(L) 3.2 - 5.2 gm/dL [facility] Aspartate Aminotransferase 15 0 - 30 unit/L [facility] Alanine Aminotransferase 15 0 - 30 unit/L [facility] Alkaline Phosphatase 239(H) 35 - 105 unit/L [facility] Bilirubin, Total 0.4 0.2 - 1.3 mg/dL [facility] Est Glomerular Filtration Rate 83 >=60 mL/min/1. 73 m?? [facility] Comment: The eGFR was calculated using the CKD-EPI equation. As with all creatinine based estimates of kidney function, eGFR values calculated with the CKD-EPI equation are not accurate in patients with acute kidney failure, extremes of body mass or the acutely ill. [email or web address] eGFR 96 >=60 mL/min/1. 73 m?? [facility] Comment: The eGFR was calculated using the CKD-EPI equation. As with all creatinine based estimates of kidney function, eGFR values calculated with the CKD-EPI equation are not accurate in patients with acute kidney failure, extremes of body mass or the acutely ill. [email or web address] Blood specimen (specimen) 04/25/2020 5:05 AM EDT 04/25/2020 5:19 AM EDT Narrative Resulting Agency Comment Spec In Lab Dale Dash MD CHEMISTRY ORDERABLES [facility] [place] [address] * POCT Glucose (04/25/2020 4:06 AM EDT) Glucose, POC 135 65 - 199 mg/dL [facility] Comment: Supplemental ranges: <140 mg/dL before meals <180 mg/dL all other times of the day Blood specimen (specimen) 04/25/2020 4:06 AM EDT 04/25/2020 4:06 AM EDT Abiodun Chun MD POINT OF CARE TEST O RDERABLES Performing Organization Address City/[facility]/ZIP Co de Phone Number [facility] [place] [address] * (ABNORMAL) POCT Glucose (04/24/2020 11:19 PM EDT) Glucose, POC 203(H) 65 - 199 mg/dL [facility] Comment: Supplemental ranges: <140 mg/dL before meals <180 mg/dL all other times of the day Blood specimen (specimen) 04/24/2020 11:19 PM EDT 04/24/2020 11:19 PM EDT Abiodun Chun MD POINT OF CARE TEST O RDERABLES Performing Organization Address [facility]/ZIP Co de Phone Number [facility] [place] [address] * (ABNORMAL) POCT Glucose (04/24/2020 8:16 PM EDT) Glucose, POC 241(H) 65 - 199 mg/dL [facility] Comment: Supplemental ranges: <140 mg/dL before meals <180 mg/dL all other times of the day Blood specimen (specimen) 04/24/2020 8:16 PM EDT 04/24/2020 8:16 PM EDT Abiodun Chun MD POINT OF CARE TEST O RDERABLES [facility] [place] [address] * (ABNORMAL) POCT Glucose (04/24/2020 5:08 PM EDT) Glucose, POC 230(H) 65 - 199 mg/dL [facility] Comment: Supplemental ranges: <140 mg/dL before meals <180 mg/dL all other times of the day Blood specimen (specimen) 04/24/2020 5:08 PM EDT 04/24/2020 5:08 PM EDT Abiodun Chun MD POINT OF CARE TEST O RDERABLES Performing Organization Address City/[facility]/ZIP Co de Phone Number [facility] [place] [address] * (ABNORMAL) POCT Glucose (04/24/2020 11:48 AM EDT) Glucose, POC 223(H) 65 - 199 mg/dL [facility] Comment: Supplemental ranges: <140 mg/dL before meals <180 mg/dL all other times of the day Blood specimen (specimen) 04/24/2020 11:48 AM EDT 04/24/2020 11:48 AM EDT Abiodun Chun MD POINT OF CARE TEST O RDERABLES Performing Organization Address City/[facility]/ZIP Co de Phone Number [facility] [place] [address] * POCT Glucose (04/24/2020 7:33 AM EDT) Glucose, POC 179 65 - 199 mg/dL [facility] Comment: Supplemental ranges: <140 mg/dL before meals <180 mg/dL all other times of the day Blood specimen (specimen) 04/24/2020 7:33 AM EDT 04/24/2020 7:33 AM EDT Abiodun Chun MD POINT OF CARE TEST O RDERABLES [facility] [place] [address] * Scan, Peripheral Blood (04/24/2020 4:58 AM EDT) Pathologist [facility] Plat estimate Increased [facility] RBC Morphology Abnormal [facility] Microcyte 1-5 /HPF [facility] Hypochromia Slight [facility] Platelet Clumps Present [facility] Blood specimen (specimen) 04/24/2020 4:58 AM EDT 04/24/2020 5:16 AM EDT Narrative Resulting Agency Comment Spec In Lab Hong Levi MD HEMATOLOGY ORDERABLE S [facility] [place] [address] * (ABNORMAL) Differential, Automated (04/24/2020 4:58 AM EDT) [facility] Neutrophil % 64.5 % [facility] Neutrophil Absolute 7.89(H) 1.70 - 6.10 x10(3)/mc L [facility] Lymph % 18.2 % [facility] Lymphocytes Abs 2.2 0.9 - 3.2 x10(3)/mc L [facility] Monocyte % 8.3 % [facility] Monocyte Abs 1.0(H) 0.3 - 0.9 x10(3)/mc L [facility] Eos % 2.9 % [facility] Eosinophils Abs 0.4 0.0 - 0.4 x10(3)/mc L [facility] Basophil % 0.9 % [facility] Baso Absolute 0.1 0.0 - 0.1 x10(3)/mc L [facility] Immature Gran % 5.20 % [facility] Comment: Immature granulocytes(IG's)percentage and absolute count will include metamyelocytes, myelocytes, and promyelocytes. Blood smears from CBCs yielding IG's will be scanned manually for concordance. If this scan disagrees with the automated IG or if promyelocytes are noted, a manual differential will be performed. Immature Gran Absolute 0.64(H) 0.00 - 0.04 x10(3)/ L [facility] Blood specimen (specimen) 04/24/2020 4:58 AM EDT 04/24/2020 5:16 AM EDT Narrative Resulting Agency Comment Spec In Lab Hong Levi MD HEMATOLOGY ORDERABLE S [facility] [place] [address] * (ABNORMAL) Hemogram (04/24/2020 4:58 AM EDT) White Blood Cell 12.2(H) 4.0 - 9.5 x10(3)/mc L [facility] Red Blood Cell 3.71(L) 4.00 - 5.21 x10(6)/ L [facility] Hemoglobin 10.1(L) 11.7 - 15.5 gm/dL [facility] Hematocrit 31.2(L) 35.7 - 45.8 % [facility] Mean Cell Volume 84.1 82.6 - 94.4 fL [facility] Mean Cell Hemoglobin 27.2 27.1 - 32.0 pg [facility] Mean Cell Hemoglobin Concentration 32.4 31.7 - 35.0 gm/dL [facility] Platelet 375(H) 145 - 357 x10(3)/mc L [facility] RDW Standard Deviation 46.6(H) 37.0 - 46.0 fL [facility] RDW coefficient of variation 15.2(H) 11.5 - 14.1 % [facility] Mean Platelet Volume 9.7 7.6 - 12.9 fL [facility] NRBC% auto 0.0 % [facility] NRBC Absolute 0.000 0.000 - 0.000 x10(3)/mc L [facility] Blood specimen (specimen) 04/24/2020 4:58 AM EDT 04/24/2020 5:16 AM EDT Narrative Resulting Agency Comment Spec In Lab Hong Levi MD HEMATOLOGY ORDERABLE S Performing Organization Address [facility] Co de Phone Number [facility] [place] [address] * Magnesium (04/24/2020 4:58 AM EDT) Magnesium 0.87 0.69 - 1.07 mmol/L [facility] Blood specimen (specimen) 04/24/2020 4:58 AM EDT 04/24/2020 5:16 AM EDT Narrative Resulting Agency Comment Spec In Lab Dale Dash MD CHEMISTRY ORDERABLES Performing Organization Address [facility] Co de Phone Number [facility] [place] [address] * (ABNORMAL) Comprehensive metabolic panel (non-fasting) (04/24/2020 4:58 AM EDT) Glucose 188 65 - 199 mg/dL [facility] Comment:Diabetes: >=200 mg/d L plus symptoms Blood Urea Nitrogen 25(H) 8 - 18 mg/dL [facility] Creatinine 0.74 0.70 - 1.20 mg/dL [facility] Sodium 143 135 - 145 mmol/L [facility] Potassium 3.3(L) 3.5 - 5.0 mmol/L [facility] [...] mmol/L [facility] Anion Gap 13 5 - 15 mmol/L [facility] Calcium 8.7 8.5 - 10.5 mg/dL [facility] Protein, Total 6.4 6.1 - 8.0 gm/dL [facility] Albumin 2.8(L) 3.2 - 5.2 gm/dL [facility] Aspartate Aminotransferase 14 0 - 30 unit/L [facility] Alanine Aminotransferase 16 0 - 30 unit/L [facility] Alkaline Phosphatase 243(H) 35 - 105 unit/L [facility] Bilirubin, Total 0.4 0.2 - 1.3 mg/dL [facility] Est Glomerular Filtration Rate 77 >=60 mL/min/1. 73 m?? [facility] Comment: The eGFR was calculated using the CKD-EPI equation. As with all creatinine based estimates of kidney function, eGFR values calculated with the CKD-EPI equation are not accurate in patients with acute kidney failure, extremes of body mass or the acutely ill. [email or web address] eGFR 89 >=60 mL/min/1. 73 m?? [facility] Comment: The eGFR was calculated using the CKD-EPI equation. As with all creatinine based estimates of kidney function, eGFR values calculated with the CKD-EPI equation are not accurate in patients with acute kidney failure, extremes of body mass or the acutely ill. [email or web address] Blood specimen (specimen) 04/24/2020 4:58 AM EDT 04/24/2020 5:16 AM EDT Narrative Resulting Agency Comment Spec In Lab Dale Dash MD CHEMISTRY ORDERABLES [facility] [place] [address] * POCT Glucose (04/24/2020 4:06 AM EDT) Glucose, POC 191 65 - 199 mg/dL [facility] Comment: Supplemental ranges: <140 mg/dL before meals <180 mg/dL all other times of the day Blood specimen (specimen) 04/24/2020 4:06 AM EDT 04/24/2020 4:06 AM EDT Abiodun Chun MD POINT OF CARE TEST O RDERABLES Performing Organization Address City/[facility]/ZIP Co de Phone Number [facility] [place] [address] * POCT Glucose (04/23/2020 11:44 PM EDT) Glucose, POC 193 65 - 199 mg/dL [facility] Comment: Supplemental ranges: <140 mg/dL before meals <180 mg/dL all other times of the day Blood specimen (specimen) 04/23/2020 11:44 PM EDT 04/23/2020 11:44 PM EDT Abiodun Chun MD POINT OF CARE TEST O POOLERATOAN Performing Organization Address [facility]/ZIP Co de Phone Number [facility] [place] [address] * POCT Glucose (04/23/2020 8:02 PM EDT) Glucose, POC 177 65 - 199 mg/dL [facility] Comment: Supplemental ranges: <140 mg/dL before meals <180 mg/dL all other times of the day Blood specimen (specimen) 04/23/2020 8:02 PM EDT 04/23/2020 8:02 PM EDT Abiodun Chun MD POINT OF CARE TEST O RDERATOAN Performing Organization Address City/[facility]/ZIP Co de Phone Number [facility] [place] [address] * (ABNORMAL) POCT Glucose (04/23/2020 4:15 PM EDT) Glucose, POC 204(H) 65 - 199 mg/dL [facility] Comment: Supplemental ranges: <140 mg/dL before meals <180 mg/dL all other times of the day Blood specimen (specimen) 04/23/2020 4:15 PM EDT 04/23/2020 4:15 PM EDT Abiodun Chun MD POINT OF CARE TEST O RDERABLES Performing Organization Address [facility] Co de Phone Number [facility] [place] [address] * Potassium (04/23/2020 1:40 PM EDT) Potassium 3.7 3.5 - 5.0 mmol/L [facility] [...] Chun MD CHEMISTRY ORDERABLES Performing Organization Address [facility] de Phone Number [facility] [place] [address] * (ABNORMAL) POCT Glucose (04/23/2020 11:35 AM EDT) Glucose, POC 202(H) 65 - 199 mg/dL [facility] Comment: Supplemental ranges: <140 mg/dL before meals <180 mg/dL all other times of the day Blood specimen (specimen) 04/23/2020 11:35 AM EDT 04/23/2020 11:35 AM EDT Abiodun Chun MD POINT OF CARE TEST O RDERABLES Performing Organization Address [facility] Co de Phone Number [facility] [place] [address] * POCT Glucose (04/23/2020 7:27 AM EDT) Glucose, POC 115 65 - 199 mg/dL [facility] Comment: Supplemental ranges: <140 mg/dL before meals <180 mg/dL all other times of the day Blood specimen (specimen) 04/23/2020 7:27 AM EDT 04/23/2020 7:27 AM EDT Hong Rosenthal MD POINT OF CARE TEST O RDERABLES Performing Organization Address [facility]/ZIP Co de Phone Number [facility] [place] [address] * POCT Glucose (04/23/2020 4:03 AM EDT) Glucose, POC 137 65 - 199 mg/dL [facility] Comment: Supplemental ranges: <140 mg/dL before meals <180 mg/dL all other times of the day Blood specimen (specimen) 04/23/2020 4:03 AM EDT 04/23/2020 4:03 AM EDT Hong Rosenthal MD POINT OF CARE TEST O RDERABLES Performing Organization Address [facility] Co de Phone Number [facility] [place] [address] * Scan, Peripheral Blood (04/23/2020 2:25 AM EDT) Plat estimate Increased [facility] RBC Morphology Abnormal [facility] Microcyte 1-5 /HPF [facility] Hypochromia Slight [facility] Blood specimen (specimen) 04/23/2020 2:25 AM EDT 04/23/2020 2:57 AM EDT Narrative Resulting Agency Comment Spec In Lab Tiesha Morgan MD HEMATOLOGY ORDERABLE S Performing Organization Address City/[facility]/ZIP Co de Phone Number [facility] [place] [address] * (ABNORMAL) Differential, Automated (04/23/2020 2:25 AM EDT) Neutrophil % 72.2 % [facility] Neutrophil Absolute 7.20(H) 1.70 - 6.10 x10(3)/[facility] Lymph % 17.0 % [facility] Lymphocytes Abs 1.7 0.9 - 3.2 x10(3)/[facility] Monocyte % 7.5 % [facility] Monocyte Abs 0.8 0.3 - 0.9 x10(3)/[facility] Eos % 1.9 % [facility] Eosinophils Abs 0.2 0.0 - 0.4 x10(3)/[facility] Basophil % 0.5 % [facility] Baso Absolute 0.0 0.0 - 0.1 x10(3)/[facility] Immature Gran % 0.90 % [facility] Comment: Immature granulocytes(IG's)percentage and absolute count will include metamyelocytes, myelocytes, and promyelocytes. Blood smears from CBCs yielding IG's will be scanned manually for concordance. If this scan disagrees with the automated IG or if promyelocytes are noted, a manual differential will be performed. Immature Gran Absolute 0.09(H) 0.00 - 0.04 x10(3)/[facility] Blood specimen (specimen) 04/23/2020 2:25 AM EDT 04/23/2020 2:57 AM EDT Narrative Resulting Agency Comment Spec In Lab Tiesha Morgan MD HEMATOLOGY ORDERABLE S [facility] [place] [address] * (ABNORMAL) Hemogram (04/23/2020 2:25 AM EDT) White Blood Cell 10.0(H) 4.0 - 9.5 x10(3)/[facility] Red Blood Cell 3.26(L) 4.00 - 5.21 x10(6)/mc L [facility] Hemoglobin 8.9(L) 11.7 - 15.5 gm/dL [facility] Hematocrit 27.4(L) 35.7 - 45.8 % [facility] Mean Cell Volume 84.0 82.6 - 94.4 fL [facility] Mean Cell Hemoglobin 27.3 27.1 - 32.0 pg [facility] Mean Cell Hemoglobin Concentration 32.5 31.7 - 35.0 gm/dL [facility] Platelet 360(H) 145 - 357 x10(3)/mc L [facility] RDW Standard Deviation 47.2(H) 37.0 - 46.0 fL [facility] RDW coefficient of variation 15.4(H) 11.5 - 14.1 % [facility] Mean Platelet Volume 10.1 7.6 - 12.9 fL [facility] NRBC% auto 0.0 % [facility] NRBC Absolute 0.000 0.000 - 0.000 x10(3)/mc L [facility] Blood specimen (specimen) 04/23/2020 2:25 AM EDT 04/23/2020 2:57 AM EDT Narrative Resulting Agency Comment Spec In Lab Tiesha Morgan MD HEMATOLOGY ORDERABLE S Performing Organization Address City/[facility] [place] [address] * Magnesium (04/23/2020 2:25 AM EDT) Magnesium 0.96 0.69 - 1.07 mmol/L [facility] Blood specimen (specimen) 04/23/2020 2:25 AM EDT 04/23/2020 2:57 AM EDT Narrative Resulting Agency Comment Spec In Lab Dale Dash MD CHEMISTRY ORDERABLES Performing Organization Address City/[facility]/ZIP Co de Phone Number [facility] [place] [address] * (ABNORMAL) Prothrombin Time (04/23/2020 2:25 AM EDT) Prothrombin Time 14.6(H) 9.4 - 12.5 sec [facility] International Normalization Ratio 1.3 [facility] Comment: An [...] Lab Magdalene Lopez MD HEMATOLOGY ORDERABLE S [facility] [place] [address] * (ABNORMAL) Comprehensive metabolic panel (non-fasting) (04/23/2020 2:25 AM EDT) Pathologist [facility] Glucose 134 65 - 199 mg/dL [facility] Comment:Diabetes: >=200 mg/d L plus symptoms Blood Urea Nitrogen 32(H) 8 - 18 mg/dL [facility] Creatinine 0.96 0.70 - 1.20 mg/dL [facility] Sodium 142 135 - 145 mmol/L [facility] Potassium 3.3(L) 3.5 - 5.0 mmol/L [facility] [...] 15 mmol/L [facility] Calcium 8.4(L) 8.5 - 10.5 mg/dL [facility] Protein, Total 6.1 6.1 - 8.0 gm/dL [facility] Albumin 2.7(L) 3.2 - 5.2 gm/dL [facility] Aspartate Aminotransferase 17 0 - 30 unit/L [facility] Alanine Aminotransferase 19 0 - 30 unit/L [facility] Alkaline Phosphatase 227(H) 35 - 105 unit/L [facility] Bilirubin, Total 0.5 0.2 - 1.3 mg/dL [facility] Est Glomerular Filtration Rate 56(L) >=60 mL/min/1. 73 m?? [facility] Comment: The eGFR was calculated using the CKD-EPI equation. As with all creatinine based estimates of kidney function, eGFR values calculated with the CKD-EPI equation are not accurate in patients with acute kidney failure, extremes of body mass or the acutely ill. [email or web address] [email or web address] eGFR 65 >=60 mL/min/1. 73 m?? [facility] Comment: The eGFR was calculated using the CKD-EPI equation. As with all creatinine based estimates of kidney function, eGFR values calculated with the CKD-EPI equation are not accurate in patients with acute kidney failure, extremes of body mass or the acutely ill. [email or web address] Blood specimen (specimen) 04/23/2020 2:25 AM EDT 04/23/2020 2:57 AM EDT Narrative Resulting Agency Comment Spec In Lab Dale Dash MD CHEMISTRY ORDERABLES [facility] [place] [address] * POCT Glucose (04/22/2020 11:23 PM EDT) Glucose, POC 143 65 - 199 mg/dL [facility] Comment: Supplemental ranges: <140 mg/dL before meals <180 mg/dL all other times of the day Blood specimen (specimen) 04/22/2020 11:23 PM EDT 04/22/2020 11:23 PM EDT Hong Rosenthal MD POINT OF CARE TEST O RDERABLES Performing Organization Address [facility] Phone Number [facility] [place] [address] * POCT Glucose (04/22/2020 8:00 PM EDT) [facility] Glucose, POC 142 65 - 199 mg/dL [facility] Comment: Supplemental ranges: <140 mg/dL before meals <180 mg/dL all other times of the day Blood specimen (specimen) 04/22/2020 8:00 PM EDT 04/22/2020 8:00 PM EDT Hong Rosenthal MD POINT OF CARE TEST O RDERABLES Performing Organization Address [facility] Phone Number [facility] [place] [address] * (ABNORMAL) Potassium (04/22/2020 5:45 PM EDT) [facility] Potassium 3.4(L) 3.5 - 5.0 mmol/L [facility] [...] Rosenthal MD CHEMISTRY ORDERABLES Performing Organization Address [facility] Co de Phone Number [facility] [place] [address] * POCT Glucose (04/22/2020 4:42 PM EDT) Glucose, POC 156 65 - 199 mg/dL [facility] Comment: Supplemental ranges: <140 mg/dL before meals <180 mg/dL all other times of the day Blood specimen (specimen) 04/22/2020 4:42 PM EDT 04/22/2020 4:42 PM EDT Hong Rosenthal MD POINT OF CARE TEST O ISAIAH [facility] [place] [address] * IR Cholecystostomy Tube Placement (04/22/2020 4:19 [...] EDT) Anaerobic Culture No anaerobic organisms isolated [facility] Bile specimen (specimen) 04/22/2020 3:50 PM EDT 04/22/2020 4:36 PM EDT Comment:CHOLECYSTITIS IN THE SETTING OF RECENT ACS S/P STENT PLACEMENT Narrative Resulting Agency Comment Spec In Lab Hong Rosenthal MD MICROBIOLOGY - GENER AL ORDERABLES [facility] [place] [address] * (ABNORMAL) Body Fluid Culture, Aerobic (04/22/2020 3:50 PM EDT) Body Fluid Culture Many Raoultella ornithinolytica (Klebsiella ornithinolytica)(A ) [facility] Gram Stain Few Neutrophils seen Rare Gram Negative Rods seen (A) [facility] Organism Raoultella ornithinolytica (Klebsiella ornithinolytica)(A ) [facility] Organism Gram Negative Rods(A) [facility] Bile specimen (specimen) 04/22/2020 3:50 [...] ornithinolytica Trimethoprim/Sulfa VITEK 2 METHOD Sensitive Hong Rsoenthal MD MICROBIOLOGY - [facility] AL ORDERABLES [facility] [place] [address] * (ABNORMAL) Differential, Automated (04/22/2020 2:05 PM EDT) Neutrophil % 77.2 % [facility] Neutrophil Absolute 9.74(H) 1.70 - 6.10 x10(3)/mc L [facility] Lymph % 11.3 % [facility] Lymphocytes Abs 1.4 0.9 - 3.2 x10(3)/mc L [facility] Monocyte % 8.2 % [facility] Monocyte Abs 1.0(H) 0.3 - 0.9 x10(3)/mc L [facility] Eos % 1.9 % [facility] Eosinophils Abs 0.2 0.0 - 0.4 x10(3)/[facility] Basophil % 0.6 % [facility] Baso Absolute 0.1 0.0 - 0.1 x10(3)/[facility] Immature Gran % 0.80 % [facility] Comment: Immature granulocytes(IG's)percentage and absolute count will include metamyelocytes, myelocytes, and promyelocytes. Blood smears from CBCs yielding IG's will be scanned manually for concordance. If this scan disagrees with the automated IG or if promyelocytes are noted, a manual differential will be performed. Immature Gran Absolute 0.10(H) 0.00 - 0.04 x10(3)/[facility] Blood specimen (specimen) 04/22/2020 2:05 PM EDT 04/22/2020 2:17 PM EDT Narrative Resulting Agency Comment Spec In Lab Hong Levi MD HEMATOLOGY ORDERABLE S [facility] [place] [address] * (ABNORMAL) Hemogram (04/22/2020 2:05 PM EDT) White Blood Cell 12.6(H) 4.0 - 9.5 x10(3)/[facility] Red Blood Cell 3.51(L) 4.00 - 5.21 x10(6)/[facility] Hemoglobin 9.5(L) 11.7 - 15.5 gm/dL [facility] Hematocrit 29.3(L) 35.7 - 45.8 % [facility] Mean Cell Volume 83.5 82.6 - 94.4 fL [facility] Mean Cell Hemoglobin 27.1 27.1 - 32.0 pg [facility] Mean Cell Hemoglobin Concentration 32.4 31.7 - 35.0 gm/dL [facility] Platelet 340 145 - 357 x10(3)/mc L [facility] RDW Standard Deviation 47.2(H) 37.0 - 46.0 fL [facility] RDW coefficient of variation 15.4(H) 11.5 - 14.1 % [facility] Mean Platelet Volume 10.4 7.6 - 12.9 fL [facility] NRBC% auto 0.0 % [facility] NRBC Absolute 0.000 0.000 - 0.000 x10(3)/mc L [facility] Blood specimen (specimen) 04/22/2020 2:05 PM EDT 04/22/2020 2:17 PM EDT Narrative Resulting Agency Comment Spec In Lab Hong Levi MD HEMATOLOGY ORDERABLE S Performing Organization Address [facility]/ZIP Co de Phone Number [facility] [place] [address] * POCT Glucose (04/22/2020 11:29 AM EDT) Glucose, POC 171 65 - 199 mg/dL [facility] Comment: Supplemental ranges: <140 mg/dL before meals <180 mg/dL all other times of the day Blood specimen (specimen) 04/22/2020 11:29 AM EDT 04/22/2020 11:29 AM EDT Hong Rosenthal MD POINT OF CARE TEST O RDERABLES Performing Organization Address City/[facility]/ZIP Co de Phone Number [facility] [place] [address] * (ABNORMAL) BLOOD GAS 2 ARTERIAL (04/22/2020 9:20 AM EDT) pH, Arterial 7.41 7.35 - 7.45 [facility] PCO2, Arterial 37 35 - 45 mmHg [facility] PO2, Arterial 103 85 - 104 mmHg [facility] Bicarbonate, Arterial 23.4 20.0 - 26.0 mmol/L [facility] Base Excess, Arterial -1.2 -3.0 - 3.0 mmol/L [facility] Hgb Blood Gas 9.3(L) 11.7 - 15.5 gm/dL [facility] Oxyhemoglobin, Arterial 96.3 94.0 - 97.0 % [facility] Carboxyhemoglob in, Arterial 0.3 % [facility] Comment: Nonsmokers: 0.5-1.5% COHB Smokers: Variable, but usually less than 10% Toxic: 20-30% COHB Lethal: Greater than 60% COHB Methemoglobin, Arterial 0.6 <=1.5 % [facility] Na Whole Blood 137 135 - 145 mmol/L [facility] K Whole Blood 3.0(Critic al) 3.5 - 5.0 mmol/L [facility] Comment: Noted by instrument designer. Please note: Patients with WBC >100,000 may have falsely elevated Potassium levels. Contact the Clinical Chemistry Laboratory if there are any questions. ICa Whole Blood 1.11(L) 1.15 - 1.33 mmol/L [facility] Comment: Note: ??Total bilirubin higher than 20 mg/dL may lead to falsely low ionized calcium. CL Whole Blood 109(H) 98 - 107 mmol/L [facility] Gluc Whole Bld 147 65 - 199 mg/dL [facility] Comment:Diabetes: >=200 mg/d L plus symptoms. Lactate WB 1.1 0.5 - 2.2 mmol/L [facility] Flow Art 6.0 LPM [facility] Blood specimen (specimen) 04/22/2020 9:20 AM EDT 04/22/2020 9:20 AM EDT Hong Rosenthal MD POINT OF CARE TEST O RDERABLES [facility] [place] [address] * POCT Glucose (04/22/2020 7:35 AM EDT) Glucose, POC 153 65 - 199 mg/dL [facility] Comment: Supplemental ranges: <140 mg/dL before meals <180 mg/dL all other times of the day Blood specimen (specimen) 04/22/2020 7:35 AM EDT 04/22/2020 7:35 AM EDT Hong Rosenthal MD POINT OF CARE TEST O RDERABLES [facility] [address] [place] [address] * XR Chest One View (04/22/2020 6:15 [...] 3:50 AM EDT) Neutrophil % 78.4 % [facility] Neutrophil Absolute 10.58(H) 1.70 - 6.10 x10(3)/mc L [facility] Lymph % 11.9 % [facility] Lymphocytes Abs 1.6 0.9 - 3.2 x10(3)/mc L [facility] Monocyte % 8.2 % [facility] Monocyte Abs 1.1(H) 0.3 - 0.9 x10(3)/mc L [facility] Eos % 0.5 % [facility] Eosinophils Abs 0.1 0.0 - 0.4 x10(3)/mc L [facility] Basophil % 0.2 % [facility] Baso Absolute 0.0 0.0 - 0.1 x10(3)/ L [facility] Immature Gran % 0.80 % [facility] Comment: Immature granulocytes(IG's)percentage and absolute count will include metamyelocytes, myelocytes, and promyelocytes. Blood smears from CBCs yielding IG's will be scanned manually for concordance. If this scan disagrees with the automated IG or if promyelocytes are noted, a manual differential will be performed. Immature Gran Absolute 0.11(H) 0.00 - 0.04 x10(3)/[facility] Blood specimen (specimen) 04/22/2020 3:50 AM EDT 04/22/2020 3:57 AM EDT Narrative Resulting Agency Comment Spec In Lab Tiesha Morgan MD HEMATOLOGY ORDERABLE S [facility] [place] [address] * (ABNORMAL) Hemogram (04/22/2020 3:50 AM EDT) White Blood Cell 13.5(H) 4.0 - 9.5 x10(3)/[facility] Red Blood Cell 3.18(L) 4.00 - 5.21 x10(6)/ L [facility] Hemoglobin 8.6(L) 11.7 - 15.5 gm/dL [facility] Hematocrit 26.8(L) 35.7 - 45.8 % [facility] Mean Cell Volume 84.3 82.6 - 94.4 fL [facility] Mean Cell Hemoglobin 27.0(L) 27.1 - 32.0 pg [facility] Mean Cell Hemoglobin Concentration 32.1 31.7 - 35.0 gm/dL [facility] Platelet 313 145 - 357 x10(3)/[facility] RDW Standard Deviation 47.2(H) 37.0 - 46.0 fL [facility] RDW coefficient of variation 15.2(H) 11.5 - 14.1 % [facility] Mean Platelet Volume 10.5 7.6 - 12.9 fL [facility] NRBC% auto 0.0 % [facility] NRBC Absolute 0.000 0.000 - 0.000 x10(3)/mc L [facility] Blood specimen (specimen) 04/22/2020 3:50 AM EDT 04/22/2020 3:57 AM EDT Narrative Resulting Agency Comment Spec In Lab Tiesha Morgan MD HEMATOLOGY ORDERABLE S Performing Organization Address [facility] Co de Phone Number [facility] [place] [address] * (ABNORMAL) Magnesium (04/22/2020 3:50 AM EDT) Magnesium 1.46(H) 0.69 - 1.07 mmol/L [facility] Blood specimen (specimen) 04/22/2020 3:50 AM EDT 04/22/2020 3:57 AM EDT Narrative Resulting Agency Comment Spec In Lab Dale Dash MD CHEMISTRY ORDERABLES Performing Organization Address [facility] Co de Phone Number [facility] [place] [address] * (ABNORMAL) Prothrombin Time (04/22/2020 3:50 AM EDT) Prothrombin Time 13.9(H) 9.4 - 12.5 sec [facility] [...] Lab Magdalene Lopez MD HEMATOLOGY ORDERABLE S [facility] [place] [address] * TSH [place] (04/22/2020 3:50 AM EDT) Thyroid Stimulating Hormone 1.22 0.27 - 4.20 mcIU/mL [facility] Blood specimen (specimen) 04/22/2020 3:50 AM EDT 04/22/2020 3:57 AM EDT Narrative Resulting Agency Comment Spec In Lab Hong Rosenthal MD CHEMISTRY ORDERABLES Performing Organization Address City/[facility]/ZIP Co de Phone Number [facility] [place] [address] * Lipid Panel (Reflex Direct LDL) (04/22/2020 3:50 AM EDT) Cholesterol, Total 104 mg/dL [facility] Comment: Lower Risk: <200 mg/dL Average Risk: 200-239 mg/dL Higher Risk: >gb=712 mg/dL Triglyceride 237 mg/dL [facility] Comment: Average Risk/Lower Risk: <150 mg/dL Borderline High Risk: 150-199 mg/dL High Risk: 200-499 mg/dL Very High Risk: >jk=669 mg/dL HDL Cholesterol 17 mg/dL [facility] Comment: Males: ?? Higher Risk: <40 mg/dL Females: ?? HIgher Risk: <50 mg/dL LDL Cholesterol 40 mg/dL [facility] Comment: Lowest Risk: <100 mg/dL Lower Risk: 100-129 mg/dL Borderline High Risk: 130-159 mg/dL High Risk: 160-189 mg/dL Very High Risk: >mh=762 mg/dL Cholesterol/HDL Ratio 6.1 ratio [facility] Lipid Interpretation See Note [facility] Comment: Lipid management should be guided by a patient? s ASCVD risk, goals and preferences. ACC/AHA Guidelines recommend high intensity statin if clinical ASCVD or LDL greater than or equal to 190 mg/dL. [email or web address] Adults aged 40-75 with LDL 70-189 mg/dL should have their 10 year ASCVD risk estimated with the ACC/AHA ASCVD risk glass blowing lathe operator http://tools.acc.org/EKLPS-Vdnw-Maqosgmea/ Statin should be discussed if risk greater [...] In Lab Hong Rosenthal MD CHEMISTRY ORDERABLES [facility] [place] [address] * (ABNORMAL) Hemoglobin A1c (04/22/2020 3:50 AM EDT) Hemoglobin A1c 8.5(H) 4.3 - 5.6 % [facility] [...] Mellitus, Diabetes Care 2013; 36: Suppl. 1, D84-66 Estimated Average Glucose See note mg/dL [facility] [...] into estimated average glucose values. ??Diabetes Care 2008:31(8):3495-2081. Blood specimen (specimen) 04/22/2020 3:50 AM EDT 04/22/2020 3:57 AM EDT Narrative Resulting Agency Comment Spec In Lab Hong Rosenthal MD CHEMISTRY ORDERABLES [facility] [place] [address] * (ABNORMAL) Comprehensive metabolic panel (non-fasting) (04/22/2020 3:50 AM EDT) Glucose 157 65 - 199 mg/dL [facility] Comment:Diabetes: >=200 mg/d L plus symptoms Blood Urea Nitrogen 34(H) 8 - 18 mg/dL [facility] Creatinine 1.10 0.70 - 1.20 mg/dL [facility] [...] questions. Chloride 103 98 - 107 mmol/L [facility] Carbon Dioxide 24 22 - 31 mmol/L [facility] Anion Gap 12 5 - 15 mmol/L [facility] Calcium 8.4(L) 8.5 - 10.5 mg/dL [facility] Protein, Total 6.1 6.1 - 8.0 gm/dL [facility] Albumin 2.5(L) 3.2 - 5.2 gm/dL [facility] Aspartate Aminotransferase 19 0 - 30 unit/L [facility] Alanine Aminotransferase 20 0 - 30 unit/L [facility] Alkaline Phosphatase 245(H) 35 - 105 unit/L [facility] Bilirubin, Total 0.6 0.2 - 1.3 mg/dL [facility] Est Glomerular Filtration Rate 48(L) >=60 mL/min/1. 73 m?? [facility] Comment: The eGFR was calculated using the CKD-EPI equation. As with all creatinine based estimates of kidney function, eGFR values calculated with the CKD-EPI equation are not accurate in patients with acute kidney failure, extremes of body mass or the acutely ill. http://Tocomail/[facility]SAnkf eGFR 55(L) >=60 mL/min/1. 73 m?? [facility] Comment: The eGFR was calculated using the CKD-EPI equation. As with all creatinine based estimates of kidney function, eGFR values calculated with the CKD-EPI equation are not accurate in patients with acute kidney failure, extremes of body mass or the acutely ill. http://Tocomail/[facility]SAnkf Blood specimen (specimen) 04/22/2020 3:50 AM EDT 04/22/2020 3:57 AM EDT Narrative Resulting Agency Comment Spec In Lab Dale Dash MD CHEMISTRY ORDERABLES [facility] [place] [address] * POCT Glucose (04/21/2020 11:36 PM EDT) Glucose, POC 195 65 - 199 mg/dL [facility] Comment: Supplemental ranges: <140 mg/dL before meals <180 mg/dL all other times of the day Blood specimen (specimen) 04/21/2020 11:36 PM EDT 04/21/2020 11:36 PM EDT Hong Rosenthal MD POINT OF CARE TEST O RDERABLES Performing Organization Address City/[facility]/ZIP Co de Phone Number [facility] [place] [address] * (ABNORMAL) Basic Metabolic Panel (non-fasting) (04/21/2020 10:00 PM EDT) Glucose 231(H) 65 - 199 mg/dL [facility] Comment:Diabetes: >=200 mg/d L plus symptoms Blood Urea Nitrogen 31(H) 8 - 18 mg/dL [facility] Creatinine 1.00 0.70 - 1.20 mg/dL [facility] Sodium 138 135 - 145 mmol/L [facility] Potassium 3.6 3.5 - 5.0 mmol/L [facility] [...] 15 mmol/L [facility] Calcium 8.5 8.5 - 10.5 mg/dL [facility] Est Glomerular Filtration Rate 54(L) >=60 mL/min/1. 73 m?? [facility] Comment: The eGFR was calculated using the CKD-EPI equation. As with all creatinine based estimates of kidney function, eGFR values calculated with the CKD-EPI equation are not accurate in patients with acute kidney failure, extremes of body mass or the acutely ill. http://Tocomail/[facility]SAnkf eGFR 62 >=60 mL/min/1. 73 m?? [facility] Comment: The eGFR was calculated using the CKD-EPI equation. As with all creatinine based estimates of kidney function, eGFR values calculated with the CKD-EPI equation are not accurate in patients with acute kidney failure, extremes of body mass or the acutely ill. http://Tocomail/[facility]SAnkf Blood specimen (specimen) 04/21/2020 10:00 PM EDT 04/21/2020 10:04 PM EDT Narrative Resulting Agency Comment Spec In Lab Hong Rosenthal MD CHEMISTRY ORDERABLES Performing Organization Address [facility] Co de Phone Number [facility] [place] [address] * (ABNORMAL) POCT Glucose (04/21/2020 7:49 PM EDT) Glucose, POC 201(H) 65 - 199 mg/dL [facility] Comment: Supplemental ranges: <140 mg/dL before meals <180 mg/dL all other times of the day Blood specimen (specimen) 04/21/2020 7:49 PM EDT 04/21/2020 7:49 PM EDT Hong Rosenthal MD POINT OF CARE TEST O RDERABLES Performing Organization Address [facility] Co de Phone Number [facility] [place] [address] * (ABNORMAL) Point of Care Blood Gas Historical (04/21/2020 4:44 PM EDT) pH, POC 7.43 7.35 - 7.45 [facility] pCO2, POC 31(L) 35 - 45 mmHg [facility] pO2, POC 58(L) 85 - 104 mmHg [facility] Base Excess, POC -4.0(L) -3.0 - 3.0 mmol/L [facility] Bicarbonate, POC 20.3 20.0 - 26.0 mmol/L [facility] Sodium, POC 139 135 - 145 mmol/L [facility] POC Potassium 3.4(L) 3.5 - 5.0 mmol/L [facility] Ionized Calcium, POC 1.16 1.15 - 1.33 mmol/L [facility] POC Hematocrit 29.0(L) 34.0 - 45.0 % [facility] POC Calc Hgb 9.9(L) 11.2 - 15.7 gm/dL [facility] Comment:The calculation of h emoglobin from hematocrit assumes a normal MCHC. POC Bgas Loc CC LAB [facility] Blood specimen (specimen) 04/21/2020 4:44 PM EDT 04/22/2020 12:00 PM EDT Abiodun Chun MD CHEMISTRY ORDERABLES Performing Organization Address [facility]/State/[facility] Co de Phone Number [facility] [place] [address] * CARDIAC CATHETERIZATION (04/21/2020 4:08 PM EDT) Anatomical Region Laterality Modality Other Narrative 04/21/2020 6:49 PM EDT ?[facility] ? Cardiac Catheterization/Intervention Report ? Patient Name: HEIDY, SHANNAN A. ? Procedure Date: 04/21/2020 ? A #: [id number] ? Primary Physician: Coylewright, Esau J ? Case #: [id number] ? File Name: [id number] ? Catheterization Order Number: [id number] ? [facility] ? Final Report [place], [place] ? Patient Name: ? SHANNAN A. HEIDY ? ID#: ?[id number] ? : ?1940 ? Procedure Date: ? April 21, 2020 ?Case #: ? [id number] ? Room: ? 2 ? Case Physician: ? Esau Rahman M.D. ?Start: ?15:54 ?Fellow: ? Sandy Raman, D.O. ?Admission: ??04/19/2020 ? Referring Physician: ??Reshma [...] was designated as ASA ?Class IV. The [facility] clinical frailty scale is 5: Mildly [...] procedure was Urgent. The indication for ?the photo lab manager visit is ACS less than or equal [...] ?4 guiding catheter and a 3.[address] ??20 Mhz. ??Imaging ?was successful. ??Image [...] The lesion was predilated with a 3.00mm [place] CB 15 MM ? balloon with a [...] require ?modification of this regimen. Consult [facility] Interventional Cardiology for ?questions. ?The 1 year [...] Procedure Note Esau Rahman MD - 04/21/2020 [facility] Cardiac Catheterization/Intervention Report Patient Name: SHANNAN CHAUDHARY Procedure Date: 04/21/2020 A #: [id number] Primary Physician: Esau Rahman Case #: [id number] File Name: [id number] Catheterization Order Number: [id number] [facility] FinalReport [place], [place] Patient Name: SHANNAN CHAUDHARY ID#:[id number] :1940 Procedure Date: April 21, 2020 Case #: [id number] Room: 2 Case Physician: Esau Rahman M.D. Start: 15:54 Fellow: Sandy Camargo D.O. Admission:04/19/2020 Referring Physician: Reshma Baig M.D. Procedures: * Coronary Angiography * Coronary Ultrasound * Right Heart Catheterization * Oximetry * Coronary Stent Insertion * Vascular Closure Device Deployment * Access Site Angiography * Arterial Blood Gases History SHANNAN A. HEIDY is a 79 year old woman. She has hypertension. The patient's smoking status is Never. She has hypercholesterolemiamanaged with lipid therapy. The patient has insulin dependent diabetesmellitus. She is status post an acute non-ST elevation myocardial infarction.The patient also has a history of atrial fibrillation/atrial flutter.Prior to the initiation of this procedure, the patient was designated asASA Class IV. The [facility] clinical frailty scale is 5: Mildly Frail. Diagnostic Tests: Prior Coronary Angiography: LV ejection fraction within 6 months is 59%. Electrocardiography: EKG was assessed by ECG. EKG was Abnormal. EKG showed other abnormality. Medications Prior to Procedure: Angiotensin Converting Enzyme Inhibitor, Beta Shari andStatin. Indications for Diagnostic Cath: The priority of the diagnostic procedure was Urgent. The indicationfor the photo lab manager visit is ACS less than or equal [...] 29.0 minutes, dose area product was [id number] [id number] air kerma was 3,430 mGY. See the [...] 4 guiding catheter and a 3.[address] 20 Mhz.Imaging was successful. Image quality was good. The ostial RCA showedscattered atherosclerotic plaque. Post Intervention: The stent was well expanded and apposed. Additional Findings: Stent seen not extend past ostium, andadequately covered lesion. Indication for Intervention: Coronary intervention was indicated for primary therapy for an acute myocardial infarction. The priority for the procedure was Urgent.The [facility] indication for the procedure was NSTE-ACS. LVEF [...] The lesion was predilated with a 3.00mm [place] CB 15MM balloon with a maximum inflation [...] mayrequire modification of this regimen. Consult [facility] Interventional Cardiologyfor questions. The 1 year bleeding [...] * POCT Glucose (04/21/2020 12:15 PM EDT) [facility] Glucose, POC 180 65 - 199 mg/dL [facility] Comment: Supplemental ranges: <140 mg/dL before meals <180 mg/dL all other times of the day Blood specimen (specimen) 04/21/2020 12:15 PM EDT 04/21/2020 12:15 PM EDT Hong Rosenthal MD POINT OF CARE TEST O RDERABLES [facility] [place] [address] * XR Chest One View (04/21/2020 4:51 [...] EDT) Troponin-T 0.13(H) 0.00 - 0.00 ng/mL [facility] Comment: The 99th percentile for Troponin T is less than 0.01 ng/mL, any detectable cTnT concentration using this assay should be considered elevated. According to the third universal definition of myocardial infarction the following criteria with a clinical presentation consistent with acute myocardial ischemia meets the diagnosis for a myocardial infarction (VT). Detection of a rise and/or fall of cTnT, with at least one value greater than the 99th percentile (> or = 0.01) and with at least one of the following ?? Symptoms of ischemia ?? New or presumed new significant EE-ngorazt-O wave (ST-T) changes or new left bundle [...] additional sample may be indicated. Reference: Third Lincoln Definition of Myocardial Infarction. Journal of the [place] [employer] 2012;60:1581-98 Blood specimen (specimen) 04/21/2020 4:45 AM EDT 04/21/2020 4:56 AM EDT Narrative Resulting Agency Comment Spec In Lab Hong Rosenthal MD CHEMISTRY ORDERABLES Performing Organization Address [facility] Co de Phone Number [facility] [place] [address] * EKG 12 Lead (04/21/2020 4:33 AM EDT) Ventricular rate 83 BPM MUSE SYSTEM Atrial Rate 83 BPM MUSE SYSTEM P-R Interval 148 ms MUSE SYSTEM QRS Duration 138 ms MUSE SYSTEM Q-T Interval 408 ms MUSE SYSTEM QTC Calculated (Bezet) 479 ms MUSE SYSTEM Calculated P Mercer 57 degrees MUSE SYSTEM Calculated R Mercer 49 degrees MUSE SYSTEM Calculated T Mercer 19 degrees MUSE SYSTEM INTERPRETATION Normal sinus rhythm Right bundle branch block Abnormal ECG When compared with ECG of 20-APR-2020 14:08, (unconfirmed) No significant change was found I personally reviewed the tracing and edited the fellows interpretation Confirmed by fellow Ren Quinn ([id number]) on 04/21/2020 1:32:16 PM Confirmed by Lisbeth Cain ([id number]) on 04/21/2020 7:47:23 PM MUSE SYSTEM 04/21/2020 4:33 AM EDT 04/21/2020 7:47 PM EDT Hong Rosenthal MD ECG ORDERABLES Performing Organization Address [facility] Phone Number MUSE SYSTEM * POCT Glucose (04/21/2020 3:53 AM EDT) Glucose, POC 138 65 - 199 mg/dL [facility] Comment: Supplemental ranges: <140 mg/dL before meals <180 mg/dL all other times of the day Blood specimen (specimen) 04/21/2020 3:53 AM EDT 04/21/2020 3:53 AM EDT Hong Rosenthal MD POINT OF CARE TEST O RDERABLES Performing Organization Address [facility]/ZIP Co de Phone Number [facility] [place] [address] * (ABNORMAL) Differential, Automated (04/21/2020 3:30 AM EDT) Neutrophil % 86.1 % [facility] Neutrophil Absolute 14.52(H) 1.70 - 6.10 x10(3)/[facility] Lymph % 6.9 % [facility] Lymphocytes Abs 1.2 0.9 - 3.2 x10(3)/ L [facility] Monocyte % 5.2 % [facility] Monocyte Abs 0.9 0.3 - 0.9 x10(3)/[facility] Eos % 0.4 % [facility] Eosinophils Abs 0.1 0.0 - 0.4 x10(3)/[facility] Basophil % 0.2 % [facility] Baso Absolute 0.0 0.0 - 0.1 x10(3)/[facility] Immature Gran % 1.20 % [facility] Comment: Immature granulocytes(IG's)percentage and absolute count will include metamyelocytes, myelocytes, and promyelocytes. Blood smears from CBCs yielding IG's will be scanned manually for concordance. If this scan disagrees with the automated IG or if promyelocytes are noted, a manual differential will be performed. Immature Gran Absolute 0.20(H) 0.00 - 0.04 x10(3)/[facility] Blood specimen (specimen) 04/21/2020 3:30 AM EDT 04/21/2020 3:34 AM EDT Narrative Resulting Agency Comment Spec In Lab Tiesha Morgan MD HEMATOLOGY ORDERABLE S [facility] [place] [address] * (ABNORMAL) Hemogram (04/21/2020 3:30 AM EDT) White Blood Cell 16.9(H) 4.0 - 9.5 x10(3)/mc L [facility] Red Blood Cell 3.68(L) 4.00 - 5.21 x10(6)/mc L [facility] Hemoglobin 10.1(L) 11.7 - 15.5 gm/dL [facility] Hematocrit 31.1(L) 35.7 - 45.8 % [facility] Mean Cell Volume 84.5 82.6 - 94.4 fL [facility] Mean Cell Hemoglobin 27.4 27.1 - 32.0 pg [facility] Mean Cell Hemoglobin Concentration 32.5 31.7 - 35.0 gm/dL [facility] Platelet 275 145 - 357 x10(3)/[facility] RDW Standard Deviation 47.4(H) 37.0 - 46.0 [facility] RDW coefficient of variation 15.3(H) 11.5 - 14.1 % [facility] Mean Platelet Volume 10.4 7.6 - 12.9 [facility] NRBC% auto 0.0 % [facility] NRBC Absolute 0.000 0.000 - 0.000 x10(3)/[facility] Blood specimen (specimen) 04/21/2020 3:30 AM EDT 04/21/2020 3:34 AM EDT Narrative Resulting Agency Comment Spec In Lab Tiesha Morgan MD HEMATOLOGY ORDERABLE S [facility] [place] [address] * (ABNORMAL) Magnesium (04/21/2020 3:30 AM EDT) Magnesium 1.09(H) 0.69 - 1.07 mmol/L [facility] Comment:result rechecked-kk Blood specimen (specimen) 04/21/2020 3:30 AM EDT 04/21/2020 3:34 AM EDT Narrative Resulting Agency Comment Spec In Lab Dale Dash MD CHEMISTRY ORDERABLES [facility] [place] [address] * (ABNORMAL) Prothrombin Time (04/21/2020 3:30 AM EDT) Prothrombin Time 14.4(H) 9.4 - 12.5 sec [facility] [...] Lab Magdalene Lopez MD HEMATOLOGY ORDERABLE S [facility] [place] [address] * (ABNORMAL) Comprehensive metabolic panel (non-fasting) (04/21/2020 3:30 AM EDT) Glucose 149 65 - 199 mg/dL [facility] Comment:Diabetes: >=200 mg/d L plus symptoms Blood Urea Nitrogen 39(H) 8 - 18 mg/dL [facility] Creatinine 1.31(H) 0.70 - 1.20 mg/dL [facility] Sodium 138 135 - 145 mmol/L [facility] [...] mmol/L [facility] Anion Gap 15 5 - 15 mmol/L [facility] Calcium 8.6 8.5 - 10.5 mg/dL [facility] Protein, Total 6.6 6.1 - 8.0 gm/dL [facility] Albumin 3.1(L) 3.2 - 5.2 gm/dL [facility] Aspartate Aminotransferase 38(H) 0 - 30 unit/L [facility] Comment:result rechecked-kk Alanine Aminotransferase 29 0 - 30 unit/L [facility] Alkaline Phosphatase 257(H) 35 - 105 unit/L [facility] Comment:result rechecked-kk Bilirubin, Total 1.0 0.2 - 1.3 mg/dL [facility] Est Glomerular Filtration Rate 39(L) >=60 mL/min/1. 73 m?? [facility] Comment: The eGFR was calculated using the CKD-EPI equation. As with all creatinine based estimates of kidney function, eGFR values calculated with the CKD-EPI equation are not accurate in patients with acute kidney failure, extremes of body mass or the acutely ill. http://Tocomail/[facility]SAnkf eGFR 45(L) >=60 mL/min/1. 73 m?? [facility] Comment: The eGFR was calculated using the CKD-EPI equation. As with all creatinine based estimates of kidney function, eGFR values calculated with the CKD-EPI equation are not accurate in patients with acute kidney failure, extremes of body mass or the acutely ill. [email or web address] Blood specimen (specimen) 04/21/2020 3:30 AM EDT 04/21/2020 3:34 AM EDT Narrative Resulting Agency Comment Spec In Lab Dale Dash MD CHEMISTRY ORDERABLES [facility] [place] [address] * (ABNORMAL) Troponin (04/20/2020 11:55 PM EDT) Troponin-T 0.12(H) 0.00 - 0.00 ng/mL [facility] Comment: The 99th percentile for Troponin T is less than 0.01 ng/mL, any detectable cTnT concentration using this assay should be considered elevated. According to the third universal definition of myocardial infarction the following criteria with a clinical presentation consistent with acute myocardial ischemia meets the diagnosis for a myocardial infarction (VT). Detection of a rise and/or fall of cTnT, with at least one value greater than the 99th percentile (> or = 0.01) and with at least one of the following ?? Symptoms of ischemia ?? New or presumed new significant FH-egtrhdh-M wave (ST-T) changes or new left bundle [...] additional sample may be indicated. Reference: Third Lincoln Definition of Myocardial Infarction. Journal of the [place] [employer] 2012;60:1581-98 Blood specimen (specimen) 04/20/2020 11:55 PM EDT 04/21/2020 1:03 AM EDT Narrative Resulting Agency Comment Spec In Lab Hong Rosenthal MD CHEMISTRY ORDERABLES [facility] [place] [address] * POCT Glucose (04/20/2020 11:46 PM EDT) [facility] Glucose, POC 144 65 - 199 mg/dL [facility] Comment: Supplemental ranges: <140 mg/dL before meals <180 mg/dL all other times of the day Blood specimen (specimen) 04/20/2020 11:46 PM EDT 04/20/2020 11:46 PM EDT Hong Rosenthal MD POINT OF CARE TEST O RDERABLES Performing Organization Address City/[facility]/ZIP Co de Phone Number [facility] [place] [address] * POCT Glucose (04/20/2020 7:42 PM EDT) Glucose, POC 136 65 - 199 mg/dL [facility] Comment: Supplemental ranges: <140 mg/dL before meals <180 mg/dL all other times of the day Blood specimen (specimen) 04/20/2020 7:42 PM EDT 04/20/2020 7:42 PM EDT Hong Rosenthal MD POINT OF CARE TEST O RDERABLES Performing Organization Address [facility] Co de Phone Number [facility] [place] [address] * (ABNORMAL) Troponin (04/20/2020 5:35 PM EDT) Troponin-T 0.17(H) 0.00 - 0.00 ng/mL [facility] Comment: The 99th percentile for Troponin T is less than 0.01 ng/mL, any detectable cTnT concentration using this assay should be considered elevated. According to the third universal definition of myocardial infarction the following criteria with a clinical presentation consistent with acute myocardial ischemia meets the diagnosis for a myocardial infarction (VT). Detection of a rise and/or fall of cTnT, with at least one value greater than the 99th percentile (> or = 0.01) and with at least one of the following ?? Symptoms of ischemia ?? New or presumed new significant XV-hcmwesv-E wave (ST-T) changes or new left bundle [...] additional sample may be indicated. Reference: Third Lincoln Definition of Myocardial Infarction. Journal of the [place] [employer] 2012;60:1581-98 Blood specimen (specimen) 04/20/2020 5:35 PM EDT 04/20/2020 5:54 PM EDT Narrative Resulting Agency Comment Spec In Lab Magdalene Lopez MD CHEMISTRY ORDERABLES Performing Organization Address [facility] Co de Phone Number [facility] [place] [address] * POCT Glucose (04/20/2020 4:01 PM EDT) Glucose, POC 135 65 - 199 mg/dL [facility] Comment: Supplemental ranges: <140 mg/dL before meals <180 mg/dL all other times of the day Blood specimen (specimen) 04/20/2020 4:01 PM EDT 04/20/2020 4:01 PM EDT Magdalene Lopez MD POINT OF CARE TEST O RDERABLES Performing Organization Address [facility] Co de Phone Number [facility] [place] [address] * EKG 12 Lead (04/20/2020 2:08 PM EDT) Ventricular rate 97 BPM MUSE SYSTEM Atrial Rate 97 BPM MUSE SYSTEM P-R Interval 150 ms MUSE SYSTEM QRS Duration 126 ms MUSE SYSTEM Q-T Interval 382 ms MUSE SYSTEM QTC Calculated (Bezet) 485 ms MUSE SYSTEM Calculated P Mercer 58 degrees MUSE SYSTEM Calculated R Mercer 35 degrees MUSE SYSTEM Calculated T Mercer 11 degrees MUSE SYSTEM INTERPRETATION Normal sinus rhythm with sinus arrhythmia Right bundle branch block Abnormal ECG When compared with ECG of 20-APR-2020 11:30, (unconfirmed) No significant change was found Confirmed by Lisbeth Cain ([email or web address]) on 04/21/2020 3:48:13 PM MUSE SYSTEM 04/20/2020 2:08 PM EDT 04/21/2020 3:48 PM EDT Magdalene Lopez MD ECG ORDERABLES Performing Organization Address [facility] Co de Phone Number MUSE SYSTEM * POCT Glucose (04/20/2020 11:32 AM EDT) Glucose, POC 140 65 - 199 mg/dL [facility] Comment: Supplemental ranges: <140 mg/dL before meals <180 mg/dL all other times of the day Blood specimen (specimen) 04/20/2020 11:32 AM EDT 04/20/2020 11:32 AM EDT Magdalene Lopez MD POINT OF CARE TEST O RDERABLES Performing Organization Address [facility] Co de Phone Number [facility] [place] [address] * EKG 12 Lead (04/20/2020 11:30 AM EDT) Ventricular rate 77 BPM MUSE SYSTEM Atrial Rate 77 BPM MUSE SYSTEM P-R Interval 160 ms MUSE SYSTEM QRS Duration 120 ms MUSE SYSTEM Q-T Interval 406 ms MUSE SYSTEM QTC Calculated (Bezet) 459 ms MUSE SYSTEM Calculated P Mercer 48 degrees MUSE SYSTEM Calculated R Mercer 27 degrees MUSE SYSTEM Calculated T Mercer 18 degrees MUSE SYSTEM INTERPRETATION Sinus rhythm [...] Lopez MD ECG ORDERABLES Performing Organization Address [facility] Co de Phone Number MUSE SYSTEM * (ABNORMAL) Troponin (04/20/2020 11:30 AM EDT) Troponin-T 0.22(H) 0.00 - 0.00 ng/mL [facility] Comment: The 99th percentile for Troponin T is less than 0.01 ng/mL, any detectable cTnT concentration using this assay should be considered elevated. According to the third universal definition of myocardial infarction the following criteria with a clinical presentation consistent with acute myocardial ischemia meets the diagnosis for a myocardial infarction (VT). Detection of a rise and/or fall of cTnT, with at least one value greater than the 99th percentile (> or = 0.01) and with at least one of the following ?? Symptoms of ischemia ?? New or presumed new significant FB-fjjzccn-Y wave (ST-T) changes or new left bundle [...] additional sample may be indicated. Reference: Third Lincoln Definition of Myocardial Infarction. Journal of the [place] [employer] 2012;60:1581-98 Blood specimen (specimen) 04/20/2020 11:30 AM EDT 04/20/2020 11:45 AM EDT Narrative Resulting Agency Comment Spec In Lab Magdalene Lopez MD CHEMISTRY ORDERABLES Performing Organization Address City/State/[facility] Co de Phone Number [facility] [place] [address] * ECHO COMPLETE (04/20/2020 10:20 AM EDT) EF 59 HEARTLAB SYSTEM Anatomical Region Laterality Modality Other 04/20/2020 Narrative 04/20/2020 12:35 PM EDT Procedure: ?Transthoracic Echocardiogram Patient: ?HEIDY ASHER A ? (Age): 1940(79y) Med Rec#: ? [id number] ?Sex: ?F ? Site Loc: ? [facility] ?Ht / Wt: ??152(cm)/86(kg) Pt. Loc: ?ICU ? BSA: ?1.82 Study Date: ?? 04/20/2020 ?Pt. Type: Inpatient Tape: ? Referring: BETHANY IRELAND A Reading: Ari Rutledge ([id number]) Instrument Lens Grinder Apprentice: Hong Ahn [facility] Interpreting Fellow: Cris Rosario ([id number]) Interpreting Fellow: Oscar Barger ([id number]) Diagnosis: *Nonrheumatic aortic (valve) stenosis (I35.0) BP: [...] Vmax ?1.48 ? m/sec ? MV deceleration [id number] ?msec ? MV A-wave Vmax ?0.78 ? [...] ? Mid-Inferior ?Normal ? Mid-Inferoseptal ?Normal ? [place]-Septal ? Normal ? [place]-Anterior ? Normal ? [place]-Lateral ?Normal ? [place]-Inferior ? Normal ? [place]-Tip ?Normal ? This report has been electronically signed by: Ari Rutledge MD ? 04/20/2020 12:35:04 Images reviewed and interpretation verified [facility] Cardiac Ultrasound Laboratory Procedure Note Ari Rutledge MD - 04/20/2020 Procedure: Transthoracic Echocardiogram Patient: HEIDY Francis (Age): 1940(79y) Med Rec#: [id number] Sex: F Site Loc: [facility] Ht / Wt: 152(cm)/86(kg) Pt. Loc: ICU BSA: 1.82 Study Date: 04/20/2020 Pt. Type: Inpatient Tape: Referring: BETHANY IRELAND A Reading: Ari Rutledge ([id number]) Instrument Lens Grinder Apprentice: Hong Ahn [facility] Interpreting Fellow: Cris Rosario ([id number]) Interpreting Fellow: Oscar Barger ([id number]) Diagnosis: *Nonrheumatic aortic (valve) stenosis (I35.0) BP: [...] MV E-wave Vmax 1.48 m/sec MV deceleration [id number] msec MV A-wave Vmax 0.78 m/sec MV [...] Normal Mid-Posterolateral Normal Mid-Inferior Normal Mid-Inferoseptal Normal Way[place]-Septal Normal [place]-Anterior Normal [place]-Lateral Normal [place]-Inferior Normal [place]-Tip Normal This report has been electronically signed by: rAi Rutledge MD 04/20/2020 12:35:04 Images reviewed and interpretation verified [facility] Cardiac Ultrasound Laboratory Magdalene Lopez MD ECHO ORDERABLES * POCT Glucose (04/20/2020 8:10 AM EDT) Glucose, POC 128 65 - 199 mg/dL [facility] Comment: Supplemental ranges: <140 mg/dL before meals <180 mg/dL all other times of the day Blood specimen (specimen) 04/20/2020 8:10 AM EDT 04/20/2020 8:10 AM EDT Magdalene Lopez MD POINT OF CARE TEST O RDERABLES Performing Organization Address City/[facility]/ZIP Co de Phone Number [facility] [place] [address] * Lactate, whole blood, send to lab ([facility]) (04/20/2020 5:25 AM EDT) [facility] Lactate WB 1.6 0.5 - 2.2 mmol/L [facility] Blood specimen (specimen) Venous Draw / Unknown 04/20/2020 5:25 AM EDT 04/20/2020 6:46 AM EDT Narrative Resulting Agency Comment Spec In Lab Ginna Josue DO CHEMISTRY ORDERABLES [facility] [place] [address] * POCT Glucose (04/20/2020 5:23 AM EDT) Glucose, POC 151 65 - 199 mg/dL [facility] Comment: Supplemental ranges: <140 mg/dL before meals <180 mg/dL all other times of the day Blood specimen (specimen) 04/20/2020 5:23 AM EDT 04/20/2020 5:23 AM EDT Magdalene Lopez MD POINT OF CARE TEST O RDERABLES [facility] [place] [address] * (ABNORMAL) Differential, Automated (04/20/2020 3:25 AM EDT) Neutrophil % 86.0 % [facility] Neutrophil Absolute 15.43(H) 1.70 - 6.10 x10(3)/mc L [facility] Lymph % 5.4 % [facility] Lymphocytes Abs 1.0 0.9 - 3.2 x10(3)/ L [facility] Monocyte % 5.9 % [facility] Monocyte Abs 1.0(H) 0.3 - 0.9 x10(3)/ L [facility] Eos % 0.4 % [facility] Eosinophils Abs 0.1 0.0 - 0.4 x10(3)/[facility] Basophil % 0.3 % [facility] Baso Absolute 0.1 0.0 - 0.1 x10(3)/mc L [facility] Immature Gran % 2.00 % [facility] Comment: Immature granulocytes(IG's)percentage and absolute count will include metamyelocytes, myelocytes, and promyelocytes. Blood smears from CBCs yielding IG's will be scanned manually for concordance. If this scan disagrees with the automated IG or if promyelocytes are noted, a manual differential will be performed. Immature Gran Absolute 0.36(H) 0.00 - 0.04 x10(3)/mc L [facility] Blood specimen (specimen) 04/20/2020 3:25 AM EDT 04/20/2020 3:32 AM EDT Narrative Resulting Agency Comment Spec In Lab Tiesha Morgan MD HEMATOLOGY ORDERABLE S [facility] [place] [address] * (ABNORMAL) Hemogram (04/20/2020 3:25 AM EDT) White Blood Cell 17.9(H) 4.0 - 9.5 x10(3)/mc L [facility] Red Blood Cell 3.75(L) 4.00 - 5.21 x10(6)/mc L [facility] Hemoglobin 10.3(L) 11.7 - 15.5 gm/dL [facility] Hematocrit 32.6(L) 35.7 - 45.8 % [facility] Mean Cell Volume 86.9 82.6 - 94.4 fL [facility] Mean Cell Hemoglobin 27.5 27.1 - 32.0 pg [facility] Mean Cell Hemoglobin Concentration 31.6(L) 31.7 - 35.0 gm/dL [facility] Platelet 217 145 - 357 x10(3)/mc L [facility] RDW Standard Deviation 48.5(H) 37.0 - 46.0 fL [facility] RDW coefficient of variation 15.0(H) 11.5 - 14.1 % [facility] Mean Platelet Volume 10.7 7.6 - 12.9 fL [facility] NRBC% auto 0.0 % [facility] NRBC Absolute 0.000 0.000 - 0.000 x10(3)/mc L [facility] Blood specimen (specimen) 04/20/2020 3:25 AM EDT 04/20/2020 3:32 AM EDT Narrative Resulting Agency Comment Spec In Lab Tiesha Morgan MD HEMATOLOGY ORDERABLE S [facility] [place] [address] * POCT Glucose (04/20/2020 3:08 AM EDT) Pathologist [facility] Glucose, POC 134 65 - 199 mg/dL [facility] Comment: Supplemental ranges: <140 mg/dL before meals <180 mg/dL all other times of the day Blood specimen (specimen) 04/20/2020 3:08 AM EDT 04/20/2020 3:08 AM EDT Magdalene Lopez MD POINT OF CARE TEST O RDERABLES [facility] [place] [address] * Lipase (04/20/2020 2:43 AM EDT) [facility] Lipase 11 0 - 60 unit/L [facility] Blood specimen (specimen) Venous Draw / Unknown 04/20/2020 2:43 AM EDT 04/20/2020 3:32 AM EDT Narrative Resulting Agency Comment Spec In Lab Jos Sun MD CHEMISTRY ORDERABLES Performing Organization Address City/[facility]/ZIP Co de Phone Number [facility] [place] [address] * (ABNORMAL) Hepatic Function Panel (04/20/2020 2:43 AM EDT) [facility] Protein, Total Not Perf 6.1 - 8.0 [facility] Comment:Duplicate order, alr addis done in CMP Albumin Not Perf 3.2 - 5.2 [facility] Comment:Duplicate order, alr addis done in CMP Aspartate Aminotransferase Not Perf 0 - 30 [facility] Comment:Duplicate order, alr addis done in CMP Alanine Aminotransferase Not Perf 0 - 30 [facility] Comment:Duplicate order, alr addis done in CMP Alkaline Phosphatase Not Perf 35 - 105 [facility] Comment:Duplicate order, alr addis done in CMP Bilirubin, Total Not Perf 0.2 - 1.3 [facility] Comment:Duplicate order, alr addis done in CMP Bilirubin, Direct 0.5(H) 0.0 - 0.3 mg/dL [facility] Blood specimen (specimen) Venous Draw / Unknown 04/20/2020 2:43 AM EDT 04/20/2020 3:32 AM EDT Narrative Resulting Agency Comment Spec In Lab Jos Sun MD CHEMISTRY ORDERABLES Performing Organization Address City/[facility]/ZIP Co de Phone Number [facility] [place] [address] * Phosphorus (04/20/2020 2:43 AM EDT) Phosphorus 3.6 2.5 - 4.5 mg/dL [facility] Blood specimen (specimen) Venous Draw / Unknown 04/20/2020 2:43 AM EDT 04/20/2020 3:32 AM EDT Narrative Resulting Agency Comment Spec In Lab Tiesha Morgan MD CHEMISTRY ORDERABLES Performing Organization Address [facility] Co de Phone Number [facility] [place] [address] * Magnesium (04/20/2020 2:43 AM EDT) Pathologist [facility] Magnesium 0.71 0.69 - 1.07 mmol/L [facility] Blood specimen (specimen) Venous Draw / Unknown 04/20/2020 2:43 AM EDT 04/20/2020 3:32 AM EDT Narrative Resulting Agency Comment Spec In Lab Tiesha Morgan MD CHEMISTRY ORDERABLES Performing Organization Address [facility] Co de Phone Number [facility] [place] [address] * (ABNORMAL) Comprehensive metabolic panel (non-fasting) (04/20/2020 2:43 AM EDT) Glucose 129 65 - 199 mg/dL [facility] Comment:Diabetes: >=200 mg/d L plus symptoms Blood Urea Nitrogen 30(H) 8 - 18 mg/dL [facility] Creatinine 1.26(H) 0.70 - 1.20 mg/dL [facility] Sodium 134(L) 135 - 145 mmol/L [facility] Potassium 3.9 3.5 - 5.0 mmol/L [facility] Comment: Please note: ??Patients with WBC >100,000 may have falsely elevated Potassium levels. ??For accurate Potassium quantification in these patients send serum separator tube (gold top) for subsequent determinations. ??Contact the Clinical Chemistry Laboratory if there are any questions. Chloride 100 98 - 107 mmol/L [facility] Carbon Dioxide 20(L) 22 - 31 mmol/L [facility] Anion Gap 14 5 - 15 mmol/L [facility] Calcium 8.3(L) 8.5 - 10.5 mg/dL [facility] Protein, Total 6.1 6.1 - 8.0 gm/dL [facility] Albumin 2.8(L) 3.2 - 5.2 gm/dL [facility] Aspartate Aminotransferase 18 0 - 30 unit/L [facility] Alanine Aminotransferase 22 0 - 30 unit/L [facility] Alkaline Phosphatase 139(H) 35 - 105 unit/L [facility] Bilirubin, Total 1.5(H) 0.2 - 1.3 mg/dL [facility] Est Glomerular Filtration Rate 40(L) >=60 mL/min/1. 73 m?? [facility] Comment: The eGFR was calculated using the CKD-EPI equation. As with all creatinine based estimates of kidney function, eGFR values calculated with the CKD-EPI equation are not accurate in patients with acute kidney failure, extremes of body mass or the acutely ill. [email or web address] eGFR 47(L) >=60 mL/min/1. 73 m?? [facility] Comment: The eGFR was calculated using the CKD-EPI equation. As with all creatinine based estimates of kidney function, eGFR values calculated with the CKD-EPI equation are not accurate in patients with acute kidney failure, extremes of body mass or the acutely ill. [email or web address] Blood specimen (specimen) 04/20/2020 2:43 AM EDT 04/20/2020 3:12 AM EDT Narrative Resulting Agency Comment Spec In Lab Magdalene Lopez MD CHEMISTRY ORDERABLES Performing Organization Address [facility] de Phone Number [facility] [place] [address] * (ABNORMAL) Prothrombin Time (04/20/2020 2:43 AM EDT) Prothrombin Time 15.7(H) 9.4 - 12.5 sec [facility] International Normalization Ratio 1.4 [facility] Comment: An [...] MD HEMATOLOGY ORDERABLE S Performing Organization Address [facility] de Phone Number [facility] [place] [address] * Troponin (04/20/2020 2:43 AM EDT) Troponin-T <0.01 0.00 - 0.00 ng/mL [facility] Comment: The 99th percentile for Troponin T is less than 0.01 ng/mL, any detectable cTnT concentration using this assay should be considered elevated. According to the third universal definition of myocardial infarction the following criteria with a clinical presentation consistent with acute myocardial ischemia meets the diagnosis for a myocardial infarction (VT). Detection of a rise and/or fall of cTnT, with at least one value greater than the 99th percentile (> or = 0.01) and with at least one of the following ?? Symptoms of ischemia ?? New or presumed new significant FF-itornaw-K wave (ST-T) changes or new left bundle [...] additional sample may be indicated. Reference: Third Lincoln Definition of Myocardial Infarction. Journal of the [place] [employer] 2012;60:1581-98 Blood specimen (specimen) 04/20/2020 2:43 AM EDT 04/20/2020 3:12 AM EDT Narrative Resulting Agency Comment Spec In Lab Magdalene Lopez MD CHEMISTRY ORDERABLES Performing Organization Address City/State/[facility] Co de Phone Number [facility] [place] [address] * EKG 12 Lead (04/20/2020 2:33 AM EDT) Ventricular rate 168 BPM MUSE SYSTEM Atrial Rate 174 BPM MUSE SYSTEM QRS Duration 128 ms MUSE SYSTEM Q-T Interval 288 ms MUSE SYSTEM QTC Calculated (Bezet) 481 ms MUSE SYSTEM Calculated R Mercer 82 degrees MUSE SYSTEM Calculated T Mercer -18 degrees MUSE SYSTEM INTERPRETATION Atrial fibrillation [...] fellows interpretation Confirmed by fellow Ren Quinn ([id number]) on 04/20/2020 11:47:57 AM Confirmed by Lisbeth Cain ([id number]) on 04/21/2020 7:47:13 PM MUSE SYSTEM 04/20/2020 2:33 AM EDT 04/21/2020 7:47 PM EDT Magdalene Lopez MD ECG ORDERABLES Performing Organization Address City/[facility] Co de Phone Number MUSE SYSTEM * POCT Glucose (04/20/2020 12:36 AM EDT) Glucose, POC 112 65 - 199 mg/dL [facility] Comment: Supplemental ranges: <140 mg/dL before meals <180 mg/dL all other times of the day Blood specimen (specimen) 04/20/2020 12:36 AM EDT 04/20/2020 12:36 AM EDT Magdalene Lopez MD POINT OF CARE TEST O RDERABLES Performing Organization Address [facility] Co de Phone Number [facility] [place] [address] * EKG 12 Lead (04/19/2020 8:23 PM EDT) Ventricular rate 100 BPM MUSE SYSTEM Atrial Rate 100 BPM MUSE SYSTEM P-R Interval 156 ms MUSE SYSTEM QRS Duration 116 ms MUSE SYSTEM Q-T Interval 368 ms MUSE SYSTEM QTC Calculated (Bezet) 474 ms MUSE SYSTEM Calculated P Mercer 59 degrees MUSE SYSTEM Calculated R Mercer 26 degrees MUSE SYSTEM Calculated T Mercer 2 degrees MUSE SYSTEM INTERPRETATION Normal sinus rhythm Right bundle branch block Abnormal ECG No previous ECGs available Confirmed by Lisbeth Cain ([email or web address]) on 04/21/2020 3:47:08 PM MUSE SYSTEM 04/19/2020 8:23 PM EDT 04/21/2020 3:47 PM EDT Magdalene Lopez MD ECG ORDERABLES Performing Organization Address City/[facility]/ZIP Co de Phone Number MUSE SYSTEM * POCT Glucose (04/19/2020 7:50 PM EDT) Glucose, POC 153 65 - 199 mg/dL [facility] Comment: Supplemental ranges: <140 mg/dL before meals <180 mg/dL all other times of the day Blood specimen (specimen) 04/19/2020 7:50 PM EDT 04/19/2020 7:50 PM EDT Magdalene Lopez MD POINT OF CARE TEST O ISAIAH Performing Organization Address City/[facility]/ZIP Co de Phone Number [facility] [place] [address] * POCT Glucose (04/19/2020 5:58 PM EDT) Glucose, POC 151 65 - 199 mg/dL [facility] Comment: Supplemental ranges: <140 mg/dL before meals <180 mg/dL all other times of the day Blood specimen (specimen) 04/19/2020 5:58 PM EDT 04/19/2020 5:58 PM EDT Magdalene Lopez MD POINT OF CARE TEST O ISAIAH Performing Organization Address [facility] Co de Phone Number [facility] [place] [address] * Request For 2nd Read CT Abdomen [...] Electronically signed by: Harris Shepard [facility] ([phone]), at 04/19/2020 4:27 PM Narrative 04/19/2020 4:27 PM EDT EXAMINATION: ??REQUEST FOR 2ND READ CT ABDOMEN AND PELVIS CLINICAL HISTORY: ??cholecystitis, eval CBD as well; What Modality is the exam? CT Scan; Body Part (please add comments as necessary): abd/pelvis; Sending Institution [facility]; of exam 20200418; I believe a reinterpretation [...] (please add comments as necessary): abd/pelvis;Sending Institution [facility]; Date of exam 20200418; I believe [...] 4:04 PM EDT) Neutrophil % 85.2 % [facility] Neutrophil Absolute 14.50(H) 1.70 - 6.10 x10(3)/mc L [facility] Lymph % 7.8 % [facility] Lymphocytes Abs 1.3 0.9 - 3.2 x10(3)/mc L [facility] Monocyte % 5.7 % [facility] Monocyte Abs 1.0(H) 0.3 - 0.9 x10(3)/mc L [facility] Eos % 0.2 % [facility] Eosinophils Abs 0.0 0.0 - 0.4 x10(3)/mc L [facility] Basophil % 0.2 % [facility] Baso Absolute 0.0 0.0 - 0.1 x10(3)/mc L [facility] Immature Gran % 0.90 % [facility] Comment: Immature granulocytes(IG's)percentage and absolute count will include metamyelocytes, myelocytes, and promyelocytes. Blood smears from CBCs yielding IG's will be scanned manually for concordance. If this scan disagrees with the automated IG or if promyelocytes are noted, a manual differential will be performed. Immature Gran Absolute 0.16(H) 0.00 - 0.04 x10(3)/mc L [facility] Blood specimen (specimen) 04/19/2020 4:04 PM EDT 04/19/2020 4:30 PM EDT Narrative Resulting Agency Comment Spec In Lab Magdalene Lopez MD HEMATOLOGY ORDERABLE S [facility] [place] [address] * (ABNORMAL) Hemogram (04/19/2020 4:04 PM EDT) White Blood Cell 17.0(H) 4.0 - 9.5 x10(3)/ L [facility] Red Blood Cell 4.07 4.00 - 5.21 x10(6)/mc L [facility] Hemoglobin 11.2(L) 11.7 - 15.5 gm/dL [facility] Hematocrit 34.8(L) 35.7 - 45.8 % [facility] Mean Cell Volume 85.5 82.6 - 94.4 fL [facility] Mean Cell Hemoglobin 27.5 27.1 - 32.0 pg [facility] Mean Cell Hemoglobin Concentration 32.2 31.7 - 35.0 gm/dL [facility] Platelet 220 145 - 357 x10(3)/mc L [facility] RDW Standard Deviation 47.3(H) 37.0 - 46.0 fL [facility] RDW coefficient of variation 15.1(H) 11.5 - 14.1 % [facility] Mean Platelet Volume 11.3 7.6 - 12.9 fL [facility] NRBC% auto 0.0 % [facility] NRBC Absolute 0.000 0.000 - 0.000 x10(3)/ L [facility] Blood specimen (specimen) 04/19/2020 4:04 PM EDT 04/19/2020 4:30 PM EDT Narrative Resulting Agency Comment Spec In Lab Magdalene Lopez MD HEMATOLOGY ORDERABLE S Performing Organization Address [facility] de Phone Number [facility] [place] [address] * (ABNORMAL) Prothrombin Time (04/19/2020 4:04 PM EDT) Prothrombin Time 16.9(H) 9.4 - 12.5 sec [facility] International Normalization Ratio 1.5 [facility] Comment: An [...] MD HEMATOLOGY ORDERABLE S Performing Organization Address City/[facility] Co de Phone Number [facility] [place] [address] * (ABNORMAL) Comprehensive metabolic panel (non-fasting) (04/19/2020 4:04 PM EDT) Glucose 146 65 - 199 mg/dL [facility] Comment:Diabetes: >=200 mg/d L plus symptoms Blood Urea Nitrogen 26(H) 8 - 18 mg/dL [facility] Creatinine 1.37(H) 0.70 - 1.20 mg/dL [facility] Sodium 135 135 - 145 mmol/L [facility] Potassium 4.1 3.5 - 5.0 mmol/L [facility] Comment: Please note: ??Patients with WBC >100,000 may have falsely elevated Potassium levels. ??For accurate Potassium quantification in these patients send serum separator tube (gold top) for subsequent determinations. ??Contact the Clinical Chemistry Laboratory if there are any questions. Chloride 97(L) 98 - 107 mmol/L [facility] Carbon Dioxide 20(L) 22 - 31 mmol/L [facility] Anion Gap 18(H) 5 - 15 mmol/L [facility] Calcium 9.1 8.5 - 10.5 mg/dL [facility] Protein, Total 7.1 6.1 - 8.0 gm/dL [facility] Albumin 3.6 3.2 - 5.2 gm/dL [facility] Aspartate Aminotransferase 28 0 - 30 unit/L [facility] Alanine Aminotransferase 30 0 - 30 unit/L [facility] Alkaline Phosphatase 148(H) 35 - 105 unit/L [facility] Bilirubin, Total 2.1(H) 0.2 - 1.3 mg/dL [facility] Est Glomerular Filtration Rate 37(L) >=60 mL/min/1. 73 m?? [facility] Comment: The eGFR was calculated using the CKD-EPI equation. As with all creatinine based estimates of kidney function, eGFR values calculated with the CKD-EPI equation are not accurate in patients with acute kidney failure, extremes of body mass or the acutely ill. [email or web address] [email or web address] eGFR 42(L) >=60 mL/min/1. 73 m?? [facility] Comment: The eGFR was calculated using the CKD-EPI equation. As with all creatinine based estimates of kidney function, eGFR values calculated with the CKD-EPI equation are not accurate in patients with acute kidney failure, extremes of body mass or the acutely ill. [email or web address] [email or web address] Blood specimen (specimen) 04/19/2020 4:04 PM EDT 04/19/2020 4:30 PM EDT Narrative Resulting Agency Comment Spec In Lab Magdalene Lopez MD CHEMISTRY ORDERABLES [facility] [place] [address] * ABORH Recheck Status (04/19/2020 3:57 PM EDT) ABORH Recheck Order Order Placed [facility] ABORH Type Recheck Complete [facility] Blood specimen (specimen) 04/19/2020 3:57 PM EDT 04/19/2020 4:23 PM EDT Narrative Resulting Agency Comment Spec In Lab Magdalene Lopez MD BLOOD BANK LAB ORDER JAMIE Performing Organization Address City/[facility]/ZIP Co de Phone Number [facility] [place] [address] * Antibody screen (04/19/2020 3:57 PM EDT) Ab Screen Interp Negative [facility] Expires at [id number] on: 04/22/2020 [facility] Blood specimen (specimen) 04/19/2020 3:57 PM EDT 04/19/2020 4:23 PM EDT Narrative Resulting Agency Comment Spec In Lab Magdalene Lopez MD BLOOD BANK LAB ORDER JAMIE [facility] [place] [address] * ABO/Rh Typing (04/19/2020 3:57 PM EDT) ABORH Type O Pos [facility] Blood specimen (specimen) 04/19/2020 3:57 PM EDT 04/19/2020 4:23 PM EDT Narrative Resulting Agency Comment Spec In Lab Magdalene Lopez MD BLOOD BANK LAB ORDER JAMIE [facility] [place] [address] documented in this encounter Visit Diagnoses Not [...] Intravenous, EVERY 30 MIN PRN, Starting on 04/19/20 at 1612, Until 05/08/20 at 1535, For [...] Subramanian RN) 0412 (Given - Provider: Sandy Subramanian, LYLA)1145 (Given - Provider: Kristi Gallegos RN)2048 (Given - Provider: Tete Tanner RN) 0600 [...] Gallegos RN)2099 (Not Given - Provider: Tete Tanner, RN - Reason: Order parameters not met) 0730 (Not Given - Provider: Tete Tanner, LYLA - Reason: Order parameters not met)1125 (Given - Provider: Kristi Gallegos RN) losartan (Cozaar) tablet 25 mg 25 mg, Oral, DAILY, First dose on 05/01/20 at 1100, Until Discontinued, Routine 926 (Given - Provider: Fahad Muhammad RN) 08 (Given - Provider: Kristi Gallegos RN) 803 (Given - Provider: Kristi Gallegos, LYLA) melatonin [...] LYLA) 2048 (Given - Provider: Tete Tanner, RN) pantoprazole EC (Protonix) tablet 40 mg 40 mg, Oral, 2 TIMES DAILY, First dose on 05/03/20 at 2100, Until Discontinued, DO NOT CRUSH OR OPEN 0928 (Given - Provider: Fahad Muahmmad, LYLA)2049 (Given - Provider: Sandy Subramanian, LYLA) 08 (Given - Provider: Kristi Gallegos RN)2048 (Given - Provider: Tete Tanner, LLYA) 08 (Given - Provider: Kristi Gallegos RN) [...] 165 (Given - Provider: Fahad Muhammad RN) 1655 (Given - Provider: Kristi Gallegos, RN) senna-docusate [...] LYLA) 811 (Given - Provider: Kristi Gallegos, LYLA)2050 (Given - Provider: Tete Tanner, RN) 807 (Given - Provider: Kristi Gallegos, LYLA) sodium chloride 0.9 % (flush) flush 5 mL 5 mL, Intravenous, 2 TIMES DAILY, First dose on 05/02/20 at 1145, Until Discontinued, Routine 932 (Given - Provider: Fahad Muhamamd, RN)2057 (Given - Provider: Sandy Subramanian, RN) 811 (Given - Provider: Kristi Gallegos, RN)899 (Not Given - Provider: Kristi Gallegos, RN - Reason: Patient/family refused)2050 (Given - Provider: Tete Tanner, RN) 807 (Given - Provider: Kristi Gallegos, RN) [...] Routine documented in this encounter Care Teams Physical Biochemist Relationship Specialty Start Date End Date Reshma Baig MD [address] [place] [address] PCP - General Family Medicine 11/08/18 06/23/21 documented as of this encounter
--- OUTSIDE RECORDS SUMMARY | 2024-04-28 15:31 | XMS_ITS | Encounter Summary ---
Author Organization [facility] Address [facility] [place] [address] Care Team Providers Care Machinist Tool And Die Name Role Phone Reshma Baig MD Primary Care Provider [phone] Encounter Details Date Type Department Care Team (Late st Contact Info) Description 12/30/2018 Refill Dermatology at [address] [place] [address] Meera Castro, CONSOLE MANAGER Social History Tobacco Use Types Packs/Day [...] on filedocumented in this encounter Care Teams Machinist Tool And Die Relationship Specialty Start Date End Date Reshma Baig MD [address] [place] [address] PCP - General Family Medicine 11/08/18 06/23/21 documented as of this encounter
--- OUTSIDE RECORDS SUMMARY | 2024-04-28 15:31 | XMS_ITS | Encounter Summary ---
[place] [address] Care Team Providers Care Social Services Specialist Name Role Phone Hannah Gagnon MD Primary Care Provider [phone] Reason for Visit * Reason Onset Date Comments Prior Authorization 11/20/2014 Encounter Details Date Type Department Care Team ([facility] st Contact Info) Description 11/20/2014 [place] [address] Alexa Trujillo Prior Authorization Social History Tobacco [...] for request: TYPE II DM Health plan: [employer] [employer] Authorizing claim representative name: JAYA Faxed to health plan on: 11/20/14 Health plan decision: Approved Quantity approved: 30 FOR 30 DAYS Authorization number: [id number] Start date: 12/01/14 End date: 11/30/17 Patient notified? no Pharmacy notified? yes documented in this encounter Plan of Treatment Not on file documented as of this encounter Visit Diagnoses Not on filedocumented in this encounter Care Teams Social Services Specialist Relationship Specialty Start Date End Date Hannah Gagnon MD [address] [place] [address] PCP - General 08/08/11 11/07/18 documented as of this encounter
--- OUTSIDE RECORDS SUMMARY | 2024-04-28 15:31 | XMS_ITS | Encounter Summary ---
Author Organization [facility] [place] [address] Care Team Providers Care Production Leader Name Role Phone Hannah Gagnon MD Primary Care Provider [phone] Reason for Visit * Reason Onset Date Comments Medication Refill 05/06/2015 Encounter Details Date Type Department Care Team (Late st Contact Info) Description 05/06/2015 Refill [place] [address] Alissa Malave [facility] [place] [address] Social History Tobacco Use Types Packs/Day Years [...] filedocumented in this encounter Care Teams Production Leader Relationship Specialty Start Date End Date Hannah Gagnon MD [address] [place] [address] PCP - General 08/08/11 11/07/18 documented as of this encounter
--- OUTSIDE RECORDS SUMMARY | 2024-04-28 15:31 | XMS_ITS | Encounter Summary ---
Author Organization [facility] [place] [address] Care Team Providers Care Laminating Machine Tender Name Role Phone Reshma Baig MD Primary Care Provider [phone] Encounter Details Date Type Department Care Team (Late st Contact Info) Description 04/19/2020 4:30 PM EDT Ancillary Procedure [place] [address] Social History Tobacco Use Types Packs/Day Years [...] * POCT Glucose (04/21/2020 5:05 PM EDT) Glucose, POC 179 65 - 199 mg/dL [facility] Comment: Supplemental ranges: <140 mg/dL before meals <180 mg/dL all other times of the day Blood specimen (specimen) 04/21/2020 5:05 PM EDT 04/21/2020 5:[address] Zachary Molina MD POINT OF CARE TEST O ISAIAH [facility] [place] [address] * POCT Glucose (04/21/2020 7:27 AM EDT) Glucose, POC 176 65 - 199 mg/dL [facility] Comment: Supplemental ranges: <140 mg/dL before meals <180 mg/dL all other times of the day Blood specimen (specimen) 04/21/2020 7:27 AM EDT 04/21/2020 7:[address] Zachary Molina MD POINT OF CARE TEST O ISAIAH Performing Organization Address City/[facility]/ZIP Co de Phone Number [facility] [place] [address] documented in this encounter Visit Diagnoses Not on filedocumented in this encounter Care Teams Laminating Machine Tender Relationship Specialty Start Date End Date Reshma Baig MD [address] [place] [address] PCP - General Family Medicine 11/08/18 06/23/21 documented as of this encounter
--- OUTSIDE RECORDS SUMMARY | 2024-04-28 15:31 | XMS_ITS | Encounter Summary ---
[place] [address] Care Team Providers Care Amusement Machine Mechanic Name Role Phone Hannah Gagnon MD Primary Care Provider [phone] Reason for Visit * Reason Onset Date Comments Medication Refill 10/03/2016 Encounter Details Date Type Department Care Team (Late st Contact Info) Description 10/03/2016 [place] [address] Reyna Lloyd, RN Social History Tobacco Use [...] on filedocumented in this encounter Care Teams Amusement Machine Mechanic Relationship Specialty Start Date End Date Hannah Gagnon MD [address] [place] [address] PCP - General 08/08/11 11/07/18 documented as of this encounter
--- OUTSIDE RECORDS SUMMARY | 2024-04-28 15:31 | XMS_ITS | Encounter Summary ---
Author Organization [facility] Address [facility] [address] Care Team Providers Care Mergers And Acquisitions Attorney Name Role Phone Reshma Baig MD Primary Care Provider [phone] Reason for Visit * Reason Comments Follow-up Skin Check Encounter Details Date Type Department Care Team (Late st Contact Info) Description 02/10/2019 9:45 AM EDT Office Visit Dermatology at [address] [address] Jalil Gómez MD [address] [place] [address], [facility] [place] [address] Rosacea; Pruritus Social History Tobacco Use Types [...] refill, callings into her right aid in [place] 2. Patient states that she works at [...] disorder documented in this encounter Care Teams Mergers And Acquisitions Attorney Relationship Specialty Start Date End Date Reshma Baig MD [address] [place] [address] PCP - General Family Medicine 11/08/18 06/23/21 documented as of this encounter
--- OUTSIDE RECORDS SUMMARY | 2024-04-28 15:31 | XMS_ITS | Encounter Summary ---
Author Organization [facility] [place] [address] Care Team Providers Care Plater Printed Circuit Board Panels Name Role Phone Reshma Baig MD Primary Care Provider [phone] Encounter Details Date Type Department Care Team (Late st Contact Info) Description 04/14/2020 Ancillary Procedure [place] [address] Magdalene Lopez MD [facility] [place] [address] Social History Tobacco Use Types Packs/Day Years [...] DX Chest (04/14/2020 12:00 AM EDT) Narrative [facility] - 04/19/2020 8:57 AM EDT This exam is auto-finalizing. It's purpose is for storage only. Magdalene Lopez MD IMG FILM LIBRARY ORD ERABLES DH [place], [place] documented in this encounter Visit Diagnoses Not on filedocumented in this encounter Care Teams Plater Printed Circuit Board Panels Relationship Specialty Start Date End Date Reshma Baig MD [address] [place] [address] PCP - General Family Medicine 11/08/18 06/23/21 documented as of this encounter
--- OUTSIDE RECORDS SUMMARY | 2024-04-28 15:31 | XMS_ITS | Encounter Summary ---
Author Organization [facility] Address [facility] [place] [address] Care Team Providers Care Lockstitch Front Edge Tape Sewer Name Role Phone Hannah Gagnon MD Primary Care Provider [phone] Reason for Visit * Reason Comments Diabetes Encounter Details Date Type Department Care Team (Late st Contact Info) Description 02/28/2017 11:00 AM EDT Office [place] [address] Alissa Malave [facility] [place] [address] Uncontrolled type 2 diabetes mellitus without complication, [...] that in recently. Son is moving to [place]. REVIEW OF SYSTEMS: Depression and mood: Overall, [...] office visit with 26 minutes spent counseling [id number] with patient in the management of glucose [...] insulin documented in this encounter Care Teams Lockstitch Front Edge Tape Sewer Relationship Specialty Start Date End Date Hannah Gagnon MD [address] [place] [address] PCP - General 08/08/11 11/07/18 documented as of this encounter
--- OUTSIDE RECORDS SUMMARY | 2024-04-28 15:31 | XMS_ITS | Encounter Summary ---
Author Organization [facility] [place] [address] Care Team Providers Care Truck Driver'S Offsider Name Role Phone Reshma Baig MD Primary Care Provider Encounter Details Date Type Department Care Team (Late st Contact Info) Description 04/14/2020 12:05 AM EDT Ancillary Procedure [place] [address] Magdalene Lopez MD [facility] [place] [address] Social History Tobacco Use Types Packs/Day Years [...] DX Abdomen (04/14/2020 12:05 AM EDT) Narrative [facility] - 04/19/2020 8:57 AM EDT This exam is auto-finalizing. It's purpose is for storage only. Magdalene Lopez MD IMG FILM LIBRARY ORD ERABLES [facility] [place] documented in this encounter Visit Diagnoses Not on filedocumented in this encounter Care Teams Truck Driver'S Offsider Relationship Specialty Start Date End Date Reshma Baig MD [address] [place] [address] PCP - General Family Medicine 11/08/18 06/23/21 documented as of this encounter
--- OUTSIDE RECORDS SUMMARY | 2024-04-28 15:31 | XMS_ITS | Encounter Summary ---
Author Organization [facility] Address [facility] [place] [address] Care Team Providers Care Executive Marketing Assistant Name Role Phone Hannah Gagnon MD Primary Care Provider [phone] Reason for Visit * Reason Comments Diabetes Encounter Details Date Type Department Care Team (Late st Contact Info) Description 10/03/2016 11:30 AM EST Office Visit [place] [address] Alissa Malave APRN [facility] 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 DIABETES REGIMEN: Lantus 25 units twice a day. Humalog up to 15 units 3 times a day before meals. [id number] MEAL PLAN: Varies. 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 Breakfast is usually oatmeal or an [place] muffin. Lunch is sometimes a sandwich. Evening [...] [facility] Creatinine, Urine 76 mg/dL [facility] Urine specimen (specimen) 02/28/2017 10:33 AM EDT 02/28/2017 10:54 AM EDT Narrative Resulting Agency Comment Spec In Lab Vahid Philip MD URINE ORDERABLES Performing Organization Address [facility]/ZIP Co de Phone Number [facility] [place] [address] * LDL Cholesterol, Direct (02/28/2017 10:18 AM EDT) LDL Cholesterol, Direct 73 <=190 mg/dL [facility] Blood specimen (specimen) 02/28/2017 10:18 AM EDT 02/28/2017 10:25 AM EDT Narrative Resulting Agency Comment Spec In Lab Vahid Philip MD CHEMISTRY ORDERABLES Performing Organization Address [facility] Co de Phone Number [facility] [place] [phone] * (ABNORMAL) Hemoglobin A1c (02/28/2017 10:18 AM EDT) Hemoglobin A1c 10.0(H) 4.3 - 5.6 % [facility] [...] into estimated average glucose values. ??Diabetes Care 2008:31(8):6145-5194. Blood specimen (specimen) 02/28/2017 10:18 AM EDT 02/28/2017 10:25 AM EDT Narrative Resulting Agency Comment Spec In Lab Vahid Philip MD CHEMISTRY ORDERABLES [facility] [place] [address] documented in this encounter Visit Diagnoses Diagnosis Uncontrolled type 2 diabetes mellitus without complication, with long-term current use of insulin documented in this encounter Care Teams Executive Marketing Assistant Relationship Specialty Start Date End Date Hannah Gagnon MD [address] [place] [address] PCP - General 08/08/11 11/07/18 documented as of this encounter
--- OUTSIDE RECORDS SUMMARY | 2024-04-28 15:31 | XMS_ITS | Encounter Summary ---
Author Organization [facility] Address [facility] [place] [address] Care Team Providers Care Interior Plant Caretaker Name Role Phone Reshma Baig MD Primary Care Provider [phone] Encounter Details Date Type Department Care Team (Late st Contact Info) Description 04/20/2020 [place] [address] Fermin Ramos MD [facility] [place] [address] Social History Tobacco Use Types Packs/Day Years [...] on filedocumented in this encounter Care Teams Interior Plant Caretaker Relationship Specialty Start Date End Date Reshma Baig MD [address] [place] [address] PCP - General Family Medicine 11/08/18 06/23/21 documented as of this encounter
--- OUTSIDE RECORDS SUMMARY | 2024-04-28 15:31 | XMS_ITS | Encounter Summary ---
Author Organization [facility] Address [facility] [place] [address] Care Team Providers Care Industrial Laborer Name Role Phone Hannah Gagnon MD Primary Care Provider [phone] Reason for Visit * Reason Comments Medication Refill Encounter Details Date Type Department Care Team (Late st Contact Info) Description 09/13/2016 [place] [address] Alissa Malave APRN [facility] [place] [address] Social History Tobacco Use Types Packs/Day Years [...] on filedocumented in this encounter Care Teams Industrial Laborer Relationship Specialty Start Date End Date Hannah Gagnon MD [address] [place] [address] PCP - General 08/08/11 11/07/18 documented as of this encounter
--- OUTSIDE RECORDS SUMMARY | 2024-04-28 15:31 | XMS_ITS | Encounter Summary ---
Author Organization [facility] Address [facility] [place] [address] Care Team Providers Care Melter Caster Name Role Phone Reshma Baig MD Primary Care Provider [phone] Reason for Visit * Reason Comments Follow-up Skin Check * Consultation (Routine) - Specialty Diagnoses / Procedures Referred By Malini carlson Referred To Contact Dermatology Diagnoses Rash and other nonspecific skin eruption rash Procedures Consult Reshma Baig MD [address] [place] [address] Jalil Gómez MD [address] [place] [address], [facility] [place] [address] Referral ID Status Reason Start Date Expiration Date V isits Requested Visits Authorized [id number] 11/13/2018 11/13/2019 1 1 Encounter Details Date Type Department Care Team (Late st Contact Info) Description 12/30/2018 10:30 AM EDT Office Visit Dermatology at [address] [phone] Jalil Gómez MD [address] [place] [address], [facility] DERMATOLOGY [place], [place] [id number] Rosacea; Pruritus Social History Tobacco Use Types [...] 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 CC: Reshma Baig MD documented in this encounter Plan of Treatment Not on file documented as of this encounter Visit Diagnoses Diagnosis Rosacea Pruritus Unspecified pruritic disorder documented in this encounter Care Teams Melter Caster Relationship Specialty Start Date End Date Reshma Baig MD [address] [place] [address] PCP - General Family Medicine 11/08/18 06/23/21 documented as of this encounter
--- OUTSIDE RECORDS SUMMARY | 2024-04-28 15:31 | XMS_ITS | Encounter Summary ---
Author Organization [facility] Address [facility] [place] [address] Care Team Providers Care Senior Foreman Name Role Phone Reshma Baig MD Primary Care Provider [phone] Reason for Visit * Reason Onset Date Comments Advice Only 04/20/2020 Encounter Details Date Type Department Care Team (Late st Contact Info) Description 04/20/2020 Notes Only Cardiology at [address] [place] [address] Lisbeth Cain MD [facility] [place] [address] Advice Only Social History Tobacco Use Types [...] on filedocumented in this encounter Care Teams Senior Foreman Relationship Specialty Start Date End Date Reshma Baig MD [address] [place] [address] PCP - General Family Medicine 11/08/18 06/23/21 documented as of this encounter
--- OUTSIDE RECORDS SUMMARY | 2024-04-28 15:31 | XMS_ITS | Encounter Summary ---
Author Organization Formerly [facility] Address [facility] [place] [address] Care Team Providers Care Sequins Slinger Name Role Phone Hannah Gagnon MD Primary Care Provider [phone] Reason for Visit * Reason Comments Diabetes Encounter Details Date Type Department Care Team (Late st Contact Info) Description 11/16/2014 10:30 AM EDT Office [place] [address] Alissa Malave APRN [facility] [place] [address] Type II or unspecified type diabetes mellitus [...] PLAN: Breakfast varies, either oatmeal or an [place] muffin with fruit. Lunch is a tuna fish sandwich. Afternoon snack is a fruit. Evening meal corned beef and cabbage. PHYSICAL ACTIVITY: Swims two to three times a week and walks. 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 REVIEW OF SYSTEMS: [...] Cholesterol, Direct (06/22/2015 2:33 PM EDT) LDL Cholesterol, Direct 174(H) <=99 mg/dL [facility] Comment: The National Cholesterol Education Program (NCEP) has set the following guidelines for LDL Cholesterol: Reference range: ?? Optimal: ?<100 mg/dL ?? Near Optimal/Above Optimal: ?? 100-129 mg/dL ?? Borderline high: ?130-159 mg/dL ?? High: ? 160-189 mg/dL ?? Very high: ?>fh=274 mg/dL RAMONA 2001: 285(19):4043-2029 Blood specimen (specimen) 06/22/2015 2:33 PM EDT 06/22/2015 3:05 PM EDT Narrative Resulting Agency Comment Spec In Lab Vahid Philip MD CHEMISTRY ORDERABLES [facility] * (ABNORMAL) Hemoglobin A1c (06/22/2015 2:33 PM EDT) Hemoglobin A1c 10.2(H) 4.3 - 5.6 % [facility] Comment: Reference Range: 4.3 - [...] Mellitus, Diabetes Care 2013; 36: Suppl. 1, Z07-46 Estimated Average Glucose See note mg/dL [facility] Comment: Estimated Average Glucose not appropriate [...] resources are available on the ADA website: http://tinyurl.com/[email or web address] NORMANadacalc Dago MOE, Stella J, Hernandez R, et al. ??Translating the A1C assay into estimated average glucose values. ??Diabetes Care 2008:31(8):3831-4263. Blood specimen (specimen) 06/22/2015 2:33 PM EDT 06/22/2015 3:05 PM EDT Narrative Resulting Agency Comment Spec In Lab Vahid Philip MD CHEMISTRY ORDERABLES Performing Organization Address [facility] de Phone Number YOUSIF VANESSAIUM * Creatinine (06/22/2015 2:33 PM EDT) Creatinine 0.74 0.70 - 1.20 mg/dL YOUSIF GARCIAENNIUM Comment: Please note that the pediatric reference intervals supplied above were not validated at [facility]. Results from pediatric patients should be interpreted in conjunction to the patient's age, height and muscle mass. Est Glomerular Filtration Rate >60 >=60 YOUSIF MILLENNIUM Comment: This estimated GFR (eGFR) value [...] the following links into your internet browser. [email or web address] Blood specimen (specimen) 06/22/2015 2:33 PM EDT 06/22/2015 3:05 PM EDT Narrative Resulting Agency Comment Spec In Lab Vahid Philip MD CHEMISTRY ORDERABLES Performing Organization Address [facility] de Phone Number YOUSIF VANESSAIUM * Microalbumin, urine, random (11/16/2014 10:52 AM EDT) Creatinine, Urine 147 mg/dL NOE VANESSAIUM Albumin, Urine 16.3 mg/L GOPI R MILLENNIUM Albumin / Creatinin Ratio, Urine 11 mcg/mg Cr YOUSIF KEVIN Comment: Reference Range* Random collection (mcg/mg creatinine) Normal ?<30 Microalbuminuria ?? 30 - 300 Clinical Albuminuria ?? >300 *[place] Diabetes Association. Diabetic Nephropathy. Diabetes Care 1997;(Suppl 1):S24-S27 Exercise within 24 hour, infection, fever, CHF, marked hyperglycemia, and marked hypertension may elevate urinary albumin excretion over baseline values. Urine specimen (specimen) 11/16/2014 10:52 AM EDT 11/16/2014 11:12 AM EDT Narrative Resulting Agency Comment Spec In Lab Vahid Philip MD URINE ORDERABLES YOUSIF KEVIN * (ABNORMAL) Hemoglobin A1c (11/16/2014 10:52 AM EDT) Hemoglobin A1c 9.0(H) 4.3 - 5.6 % YOUSIF KEVIN Comment: Reference Range: 4.3 - 5.6% 5.7 [...] Mellitus, Diabetes Care 2013; 36: Suppl. 1, R17-61 Estimated Average Glucose See note mg/dL YOUSIF KEVIN Comment: Estimated Average Glucose not appropriate for [...] resources are available on the ADA website: [email or web address] Dago MOE, Stella J, Hernandez R, et al. ??Translating the A1C assay into estimated average glucose values. ??Diabetes Care 2008:31(8):2818-3696. Blood specimen (specimen) 11/16/2014 10:52 AM EDT 11/16/2014 11:11 AM EDT Narrative Resulting Agency Comment Spec In Lab Vahid Philip MD CHEMISTRY ORDERABLES Performing Organization Address City/State/[facility] Co co Phone Number [facility] documented in this encounter Visit Diagnoses Diagnosis Type II or unspecified type diabetes mellitus without mention of complication, uncontrolled documented in this encounter Care Teams Sequins Slinger Relationship Specialty Start Date End Date Hannah Gagnon MD [address] [place] [address] PCP - General 08/08/11 11/07/18 documented as of this encounter
--- OUTSIDE RECORDS SUMMARY | 2024-04-28 15:32 | XMS_ITS | Encounter Summary ---
Author Organization [place] [address] Care Team Providers Care Vp Foundation Name Role Phone Hannah Gagnon MD Primary Care Provider [phone] Reason for Visit * Reason Comments Skin Check Encounter Details Date Type Department Care Team (Late st Contact Info) Description 08/31/2011 3:15 PM EST Office Visit Dermatology [address] [place] [address] Drive [address] [place], [place] [address] Jalil Gómez MD [address], [place] [address] Actinic keratosis (Primary Dx); Seborrheic keratosis Social [...] in June of 1994. 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 Careful examination of the head, [...] Copy: Hannah Gagnon MD Pathology Addendum per [facility] 09/06/11 : Seborrheic Keratosis documented in this encounter Plan of Treatment Not on file documented as of this encounter Visit Diagnoses Diagnosis Actinic keratosis- Primary Seborrheic keratosis Other seborrheic keratosis documented in this encounter Care Teams Vp Foundation Relationship Specialty Start Date End Date Hannah Gagnon MD [address] [place] [address] PCP - General 08/08/11 11/07/18 documented as of this encounter
--- OUTSIDE RECORDS SUMMARY | 2024-04-28 15:32 | XMS_ITS | Encounter Summary ---
Author Organization Formerly [facility] [place] [address] Care Team Providers Care Link Machine Operator Name Role Phone Hannah Gagnon MD Primary Care Provider [phone] Reason for Visit * Reason Onset Date Comments Medication Refill 07/10/2013 Encounter Details Date Type Department Care Team (Late st Contact Info) Description 07/10/2013 [place] [address] Alissa [facility]ave [facility] DR [place] [address] Social History Tobacco Use Types Packs/Day Years Used Date Smoking Tobacco: Never Sex and Gender Information Value Date Recorded Sex Assigned at Not on file Gender Identity Not on file Sexual Orientation Not on file documented as of this encounter Plan of Treatment Not on file documented as of this encounter Visit Diagnoses Not on filedocumented in this encounter Care Teams Link Machine Operator Relationship Specialty Start Date End Date Hannah Gagnon MD [address] [place] [address] PCP - General 08/08/11 11/07/18 documented as of this encounter
--- OUTSIDE RECORDS SUMMARY | 2024-04-28 15:32 | XMS_ITS | Encounter Summary ---
Author Organization Formerly [facility] [place] [address] Care Team Providers Care Door To Door Fundraising Collector Name Role Phone Hannah Gagnon MD Primary Care Provider [phone] Reason for Visit * Reason Comments Diabetes Encounter Details Date Type Department Care Team ([facility] st Contact Info) Description 07/01/2013 10:30 AM EST Office [place] [address] Alissa Malave APRN [facility] [place] [address] Type II or unspecified type diabetes mellitus [...] Mood: Overall is doing okay. 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 30 - 300 Clinical Albuminuria ?? >300 *Australian Diabetes Association. Diabetic Nephropathy. Diabetes Care 1997;(Suppl 1):S24-S27 Exercise within 24 hour, infection, fever, CHF, marked hyperglycemia, and marked hypertension may elevate urinary albumin excretion over baseline values. Urine specimen (specimen) 04/15/2014 2:00 PM EDT 04/15/2014 2:25 PM EDT Narrative Resulting Agency Comment Spec In Lab Vahid Philip MD URINE ORDERABLES Performing Organization Address [facility] de Phone Number [facility] * (ABNORMAL) LDL Cholesterol, Direct (04/15/2014 12:50 PM EDT) LDL Cholesterol, Direct 158(H) <=99 mg/dL [facility] Comment: The National Cholesterol Education Program (NCEP) has set the following guidelines for LDL Cholesterol: Reference range: ?? Optimal: ?<100 mg/dL ?? Near Optimal/Above Optimal: ?? 100-129 mg/dL ?? Borderline high: ?130-159 mg/dL ?? High: ? 160-189 mg/dL ?? Very high: ?>ui=350 mg/dL RAMONA 2001: 285(19):9712-3612 Blood specimen (specimen) 04/15/2014 12:50 PM EDT 04/15/2014 12:57 PM EDT Narrative Resulting Agency Comment Spec In Lab Vahid Philip MD CHEMISTRY ORDERABLES Performing Organization Address [facility] de Phone Number [facility] * (ABNORMAL) HDL/Cholesterol Profile (04/15/2014 12:50 PM EDT) Cholesterol, Total 225(H) <=199 mg/dL [facility] Comment: Recommendations of the NCEP Adult Treatment Panel for the following risk cutoff thresholds for the [place] population: Desirable: <200 mg/dL Borderline High: 200-239 mg/dL High: > or = 240 mg/dL HDL Cholesterol 44 >=40 mg/dL ZION KEVIN Comment: Reference range: ??Low HDL: ?? < 40 mg/dL ??Normal: ?40-60 mg/dL ??Desirable: > 60 mg/dL RAMONA 2001; 285(19):9393-9654 Cholesterol/HDL Ratio 5.1 ratio YOUSIF RADHAROXANA Comment: A Cholesterol to HDL ratio below 4:1 is desirable. ??Studies suggest that increased CAD risk occurs at ratios above 5 for females and above 6 for men. ? [place] Heart Association ??(http://www.americanheart.org) ? [place] Int Med, 1994; 121:641 ? AM J Med, 1998; 105(1A):48S Blood specimen (specimen) 04/15/2014 12:50 PM EDT 04/15/2014 12:57 PM EDT Narrative Resulting Agency Comment Spec In Lab Vahid Philip MD CHEMISTRY ORDERABLES Performing Organization Address [facility] Co de Phone Number [facility] * TSH (04/15/2014 12:50 PM EDT) Thyroid Stimulating Hormone 3.81 0.27 - 4.20 mcIU/mL YOUSIF RADHAROXANA Blood specimen (specimen) 04/15/2014 12:50 PM EDT 04/15/2014 12:57 PM EDT Narrative Resulting Agency Comment Spec In Lab Vahid Philip MD CHEMISTRY ORDERABLES Performing Organization Address [facility] Co de Phone Number [facility] * (ABNORMAL) Hemoglobin A1c (04/15/2014 12:50 PM EDT) Hemoglobin A1c 8.0(H) <=5.6 % GOPI KEVIN Comment: Reference [...] Mellitus, Diabetes Care 2013; 36: Suppl. 1, J05-48 Estimated Average Glucose See note mg/dL [facility] Comment: Estimated Average Glucose not appropriate for [...] resources are available on the ADA website: [email or web address] Dago MOE, Stella J, Hernandez R, et al. ??Translating the A1C assay into estimated average glucose values. ??Diabetes Care 2008:31(8):2823-9506. Blood specimen (specimen) 04/15/2014 12:50 PM EDT 04/15/2014 12:57 PM EDT Narrative Resulting Agency Comment Spec In Lab Vahid Philip MD CHEMISTRY ORDERABLES YOUSIF KEVIN * (ABNORMAL) Comprehensive metabolic panel (non-fasting) (04/15/2014 12:50 PM EDT) Glucose 114 60 - 199 mg/dL [facility] Comment:Diabetes: >=200 mg/d L plus symptoms Blood Urea Nitrogen 13 8 - 18 mg/dL CERNER MILLENNIUM Creatinine 0.78 0.70 - 1.20 mg/dL CERNER MILLENNIUM Comment: Please note that the pediatric reference intervals supplied above were not validated at [facility]. Results from pediatric patients should be interpreted [...] 102 98 - 107 mmol/L CERNER MILLENNIUM Carbon Dioxide 27 22 - 31 mmol/L CERNER MILLENNIUM Anion Gap 11 5 - 15 mmol/L CERNER MILLENNIUM Calcium 9.8 8.5 - 10.5 mg/dL CERNER MILLENNIUM Protein, Total 7.5 6.4 - 8.3 gm/dL CERNER MILLENNIUM Albumin 4.3 3.2 - 5.2 gm/dL CERNER MILLENNIUM Aspartate Aminotransferase 29 0 - 30 unit/L CERNER MILLENNIUM Alanine Aminotransferase 48(H) 0 - 30 unit/L CERNER MILLENNIUM Alkaline Phosphatase 146(H) 40 - 104 unit/L CERNER MILLENNIUM Bilirubin, Total 0.9 0.2 - 1.3 mg/dL CERNER MILLENNIUM Bilirubin, Direct 0.1 0.0 - 0.3 mg/dL CERNER MILLENNIUM Est Glomerular Filtration Rate >60 >=60 CERNER MILLENNIUM Comment: This estimated [...] the following links into your internet browser. [email or web address] Blood specimen (specimen) 04/15/2014 12:50 PM EDT 04/15/2014 12:57 PM EDT Narrative Resulting Agency Comment Spec In Lab Vahid Philip MD CHEMISTRY ORDERABLES [facility] * (ABNORMAL) Hemoglobin A1c (07/01/2013 10:45 AM EST) Hemoglobin A1c 8.4(H) 4.3 - 6.1 % [facility] Comment: The [place] Diabetes Association (ADA) has stated that HbA1c [...] in Diabetes 2013. Diabetes Care 2013:36;suppl 1:S11-S66. Estimated Average Glucose See note mg/dL [facility] Comment: Estimated Average Glucose not appropriate [...] into estimated average glucose values. ??Diabetes Care 2008:31(8):7898-1084. Blood specimen (specimen) 07/01/2013 10:45 AM EST 07/01/2013 10:49 AM EST Narrative Resulting Agency Comment Spec In Lab Vahid Philip MD CHEMISTRY ORDERABLES [facility] documented in this encounter Visit Diagnoses Diagnosis Type II or unspecified type diabetes mellitus without mention of complication, uncontrolled- Primary documented in this encounter Care Teams Door To Door Fundraising Collector Relationship Specialty Start Date End Date Hannah Gagnon MD [address] [place] [address] PCP - General 08/08/11 11/07/18 documented as of this encounter
--- OUTSIDE RECORDS SUMMARY | 2024-04-28 15:32 | XMS_ITS | Encounter Summary ---
Author Organization [facility] Address [facility] [place] [address] Care Team Providers Care Recordist Chief Name Role Phone Hannah Gagnon MD Primary Care Provider [phone] Encounter Details Date Type Department Care Team (Late st Contact Info) Description 01/17/2013 [place] [address] Humera Womack MD [facility] [place] [address] Social History Tobacco Use Types Packs/Day Years [...] on filedocumented in this encounter Care Teams Recordist Chief Relationship Specialty Start Date End Date Hannah Gagnon MD [address] [place] [address] PCP - General 08/08/11 11/07/18 documented as of this encounter
--- OUTSIDE RECORDS SUMMARY | 2024-04-28 15:32 | XMS_ITS | Encounter Summary ---
Author Organization [facility] Address [facility] [place] [address] Care Team Providers Care Sports Apparel Internship Name Role Phone Hannah Gagnon MD Primary Care Provider Reason for Visit * Reason Comments Diabetes Encounter Details Date Type Department Care Team (Late st Contact Info) Description 12/24/2012 1:00 PM EDT Office [place] [address] Alissa Malave ANGULAR DEVELOPER [facility] [place] [address] Type II or unspecified type diabetes mellitus [...] and tuna fish. 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 PHYSICAL EXAMINATION: Appearance: She appears strong, she [...] office visit with 46 minutes spent counseling [id number] with patient in the management of glucose levels, changing her insulin regimen, reviewing target glucose levels, reviewing insulin pen use. documented in this encounter Plan of Treatment Not on file documented as of this encounter Results * (ABNORMAL) Hemoglobin A1c (03/25/2013 9:43 AM EDT) Hemoglobin A1c 8.3(H) 4.3 - 6.1 % YOU[facility]IF [facility] Comment: The [place] Diabetes Association (ADA) has stated that HbA1c [...] 1:S11-S66. Estimated Average Glucose See note mg/dL [facility] Comment: Estimated Average Glucose not appropriate for [...] into estimated average glucose values. ??Diabetes Care 2008:31(8):5610-4732. Blood specimen (specimen) 03/25/2013 9:43 AM EDT 03/25/2013 9:55 AM EDT Narrative Resulting Agency Comment Spec In Lab Vahid Philip MD CHEMISTRY ORDERABLES Performing Organization Address City/State/[facility] Co fl Phone Number [facility] documented in this encounter Visit Diagnoses Diagnosis Type II or unspecified type diabetes mellitus without mention of complication, uncontrolled- Primary documented in this encounter Care Teams Sports Apparel Internship Relationship Specialty Start Date End Date Hannah Gagnon MD [address] [place] [address] PCP - General 08/08/11 11/07/18 documented as of this encounter
--- OUTSIDE RECORDS SUMMARY | 2024-04-28 15:32 | XMS_ITS | Encounter Summary ---
Author Organization [facility] [place] [address] Care Team Providers Care Rn Visiting Name Role Phone Hannah Gagnon MD Primary Care Provider [phone] Reason for Visit * Reason Onset Date Comments Other 01/17/2013 Encounter Details Date Type Department Care Team ([facility] Contact Info) Description 01/17/2013 [place] [address] Velma Watkins LPN Other Social History Tobacco [...] on filedocumented in this encounter Care Teams Rn Visiting Relationship Specialty Start Date End Date Hannah Gagnon MD [address] [place], [place] [address] PCP - General 08/08/11 11/07/18 documented as of this encounter
--- OUTSIDE RECORDS SUMMARY | 2024-04-28 15:32 | XMS_ITS | Encounter Summary ---
[place] [address] Care Team Providers Care Coal Miner Name Role Phone Hannah Gagnon MD Primary Care Provider [phone] Encounter Details Date Type Department Care Team (Late st Contact Info) Description 12/02/2013 Refill [place] [address] Roxy Herring RN Social History Tobacco Use [...] on filedocumented in this encounter Care Teams Coal Miner Relationship Specialty Start Date End Date Hannah Gagnon MD [address] [place] [address] PCP - General 08/08/11 11/07/18 documented as of this encounter
--- OUTSIDE RECORDS SUMMARY | 2024-04-28 15:32 | XMS_ITS | Encounter Summary ---
Author Organization [facility] [place] [address] Care Team Providers Care Timber Treating Tank Operator Name Role Phone Hannah Gagnon MD Primary Care Provider [phone] Reason for Visit * Reason Comments Medication Refill Encounter Details Date Type Department Care Team (Late st Contact Info) Description 03/30/2014 Refill [place] [address] Alissa Malave [address]N [facility] [place] [address] Social History Tobacco Use Types Packs/Day Years Used Date Smoking Tobacco: Never Sex and Gender Information Value Date Recorded Sex Assigned at Not on file Gender Identity Not on file Sexual Orientation Not on file documented as of this encounter Plan of Treatment Not on file documented as of this encounter Visit Diagnoses Not on filedocumented in this encounter Care Teams Timber Treating Tank Operator Relationship Specialty Start Date End Date Hannah Gagnon MD [address] [place] [address] PCP - General 08/08/11 11/07/18 documented as of this encounter
--- OUTSIDE RECORDS SUMMARY | 2024-04-28 15:32 | XMS_ITS | Encounter Summary ---
Author Organization Formerly [facility] Address [facility] [place] [address] Care Team Providers Care Radiation Protection Technician Name Role Phone Hannah Gagnon MD Primary Care Provider [phone] Reason for Visit * Reason Comments Diabetes Encounter Details Date Type Department Care Team (Late st Contact Info) Description 04/15/2014 12:30 PM EDT Office Visit [place] [address] Alissa Malave APRN [facility] [place] [address] Type II or unspecified type diabetes mellitus [...] 30-minute office visit with 29-minute spent counseling [id number] with the patient in the management of [...] mention of complication, uncontrolled COMPREHENSIVE METABOLIC PANEL Routine 04/15/2014 12:50 PM EDT Type II or unspecified type diabetes mellitus without mention of complication, uncontrolled documented in this encounter Results * Microalbumin, urine, random (11/16/2014 10:52 AM EDT) Creatinine, Urine 147 mg/dL CE SHERRY MILLENNIUM Albumin, Urine 16.3 mg/L GOPI Melissa MILLENNIUM Albumin / Creatinin Ratio, Urine 11 mcg/mg Cr YOUSIF MILLENNIUM Comment: Reference Range* Random collection (mcg/mg creatinine) Normal ?<30 Microalbuminuria ?? 30 - 300 Clinical Albuminuria ?? >300 *[place] [employer] Association. Diabetic Nephropathy. Diabetes Care 1997;(Suppl [...] S67-74 Estimated Average Glucose See note mg/dL YOUSIF [...] resources are available on the ADA website: [email or web address] [email or web address] Dago MOE, Stella J, Hernandez R, et al. ??Translating the A1C assay into estimated average glucose values. ??Diabetes Care 2008:31(8):4158-6143. Blood specimen (specimen) 11/16/2014 10:52 AM EDT 11/16/2014 11:11 AM EDT Narrative Resulting Agency Comment Spec In Lab Vahid Philip MD CHEMISTRY ORDERABLES Performing Organization Address [facility] [[email or web address]] Co de Phone Number [facility] * Microalbumin, urine, random (04/15/2014 2:00 PM EDT) Creatinine, Urine 81 mg/dL CE RNER MILLENNIUM Albumin, Urine 4.9 mg/L CERNE R MILLENNIUM Albumin / Creatinin Ratio, Urine 6 mcg/mg Cr [facility] Comment: Reference Range* Random collection (mcg/mg creatinine) Normal ?<30 Microalbuminuria ?? 30 - 300 Clinical Albuminuria ?? >300 *[place] Diabetes Association. Diabetic Nephropathy. Diabetes Care 1997;(Suppl 1):S24-S27 Exercise within 24 hour, infection, fever, CHF, marked hyperglycemia, and marked hypertension may elevate urinary albumin excretion over baseline values. Urine specimen (specimen) 04/15/2014 2:00 PM EDT 04/15/2014 2:25 PM EDT Narrative Resulting Agency Comment Spec In Lab Vahid Philip MD URINE ORDERABLES Performing Organization Address [facility] [[email or web address]] Co de Phone Number [facility] * (ABNORMAL) LDL Cholesterol, Direct (04/15/2014 12:50 PM EDT) LDL Cholesterol, Direct 158(H) <=99 mg/dL [facility] Comment: The National Cholesterol Education Program (NCEP) has set the following guidelines for LDL Cholesterol: Reference range: ?? Optimal: ?<100 mg/dL ?? Near Optimal/Above Optimal: ?? 100-129 mg/dL ?? Borderline high: ?130-159 mg/dL ?? High: ? 160-189 mg/dL ?? Very high: ?>fl=519 mg/dL RAMONA 2001: 285(19):7426-5898 Blood specimen (specimen) 04/15/2014 12:50 PM EDT 04/15/2014 12:57 PM EDT Narrative Resulting Agency Comment Spec In Lab Vahid Philip MD CHEMISTRY ORDERABLES Performing Organization Address [facility] de Phone Number [facility] * (ABNORMAL) HDL/Cholesterol Profile (04/15/2014 12:50 PM EDT) Cholesterol, Total 225(H) <=199 mg/dL [facility] Comment: Recommendations of the NCEP Adult Treatment Panel for the following risk cutoff thresholds for the [place] population: Desirable: <200 mg/dL Borderline High: 200-239 mg/dL High: > or = 240 mg/dL HDL Cholesterol 44 >=40 mg/dL [facility] Comment: Reference range: ??Low HDL: ?? < 40 mg/dL ??Normal: ?40-60 mg/dL ??Desirable: > 60 mg/dL RAMONA 2001; 285(19):3895-9477 Cholesterol/HDL Ratio 5.1 ratio [facility] Comment: A Cholesterol to HDL ratio below 4:1 is desirable. ??Studies suggest that increased CAD risk occurs at ratios above 5 for females and above 6 for men. ? [place] Heart Association ??(http://www.americanheart.org) ? [place] Int Med, 1994; 121:641 ? AM J Med, 1998; 105(1A):48S Blood specimen (specimen) 04/15/2014 12:50 PM EDT 04/15/2014 12:57 PM EDT Narrative Resulting Agency Comment Spec In Lab Vahid Philip MD CHEMISTRY ORDERABLES Performing Organization Address [facility] de Phone Number [facility] * TSH (04/15/2014 12:50 PM EDT) Thyroid Stimulating Hormone 3.81 0.27 - 4.20 mcIU/mL ZIONNATALIE GARCIABRIANRGOELIO Blood specimen (specimen) 04/15/2014 12:50 PM EDT 04/15/2014 12:57 PM EDT Narrative Resulting Agency Comment Spec In Lab Vahid Philip MD CHEMISTRY ORDERABLES YOUSIF KEVIN * (ABNORMAL) Hemoglobin A1c (04/15/2014 12:50 PM EDT) Hemoglobin A1c 8.0(H) <=5.6 % GOPI Belén GARCIABRIANROGELIO Comment: Reference Range: 4.3 ? 5.6% 5.7 [...] Mellitus, Diabetes Care 2013; 36: Suppl. 1, K57-11 Estimated Average Glucose See note mg/dL YOUSIF RADHABRIANROGELIO Comment: Estimated Average Glucose not appropriate for [...] resources are available on the ADA website: http://Bridge [email or web address].[email or web address]/[facility] OK[facility] CITYadacalc Dago MOE, Stella J, Hernandez R, et al. ??Translating the A1C assay into estimated average glucose values. ??Diabetes Care 2008:31(8):1587-3089. Blood specimen (specimen) 04/15/2014 12:50 PM EDT 04/15/2014 12:57 PM EDT Narrative Resulting Agency Comment Spec In Lab Vahid Philip MD CHEMISTRY ORDERABLES CERNER MILLENNIUM * (ABNORMAL) Comprehensive metabolic panel (non-fasting) (04/15/2014 12:50 PM EDT) Glucose 114 60 - 199 mg/dL CERNER MILLENNIUM Comment:Diabetes: >=200 mg/d L plus symptoms Blood Urea Nitrogen 13 8 - 18 mg/dL CERNER MILLENNIUM Creatinine 0.78 0.70 - 1.20 mg/dL CERNER MILLENNIUM Comment: Please note that the pediatric reference intervals supplied above were not validated at [facility]. Results from pediatric patients [...] the following links into your internet browser. [email or web address] Blood specimen (specimen) 04/15/2014 12:50 PM EDT 04/15/2014 12:57 PM EDT Narrative Resulting Agency Comment Spec In Lab Vahid Philip MD CHEMISTRY ORDERABLES YOUSIF KEVIN documented in this encounter Visit Diagnoses Diagnosis Type II or unspecified type diabetes mellitus without mention of complication, uncontrolled- Primary documented in this encounter Care Teams Radiation Protection Technician Relationship Specialty Start Date End Date Hannah Gagnon MD [address] [place] [id number] PCP - General 08/08/11 11/07/18 documented as of this encounter
--- OUTSIDE RECORDS SUMMARY | 2024-04-28 15:32 | XMS_ITS | Encounter Summary ---
Author Organization [facility] [address] Care Team Providers Care Densitometrist Name Role Phone Hannah Gagnon MD Primary Care Provider [phone] Reason for Referral * Consultation (Routine) - Closed by system - Referral Specialty Diagnoses / Procedures Referred By Malini carlson Referred To Contact Podiatry Diagnoses Pain in toe of left foot [facility] Endocrinology [address] [place] [phone] Emre Barry DPM [address] [place] [phone] Referral ID Status Reason Start Date Expiration Date Visits Requested Visits Authorized [id number] Closed by system - Referral Consult, Test & Treat 09/24/2013 03/23/2014 99 99 Reason for Visit * Reason Onset Date Comments Toe Pain 09/24/2013 Encounter Details Date Type Department Care Team ([facility] Contact Info) Description 09/24/2013 Telephone [place] [address] Eliza Mc LPN Toe Pain [...] shoes she bought. She went to the [facility] where they x-rayed her foot, took blood, and now want to do an U/S on it. States she feels that is not the right direction. Discussed this with Alissa Malave NP who agrees we could refer her to a production operator to check out her foot, and also stop wearing the new shoes. Faxed referral, demographics, last office note, and this note to Emre Barry, a production operator in [facility]. Patient notified. documented in this encounter Plan of Treatment Scheduled Referrals Name Type Priority Associated Diagnoses Orde r Schedule Referral to Podiatry Outpatient Referral Routine Pain in toe of left foot Ordered: 09/24/2013 documented as of this encounter Visit Diagnoses Diagnosis Pain in toe of left foot- Primary Pain in limb documented in this encounter Care Teams Densitometrist Relationship Specialty Start Date End Date Hannah Gagnon MD [address] [place] [address] PCP - General 08/08/11 11/07/18 documented as of this encounter
--- OUTSIDE RECORDS SUMMARY | 2024-04-28 15:32 | XMS_ITS | Encounter Summary ---
Author Organization [facility] Address [facility] [place] [address] Care Team Providers Care Multi Spindle Operator Name Role Phone Hannah Gagnon MD Primary Care Provider [phone] Reason for Visit * Reason Comments Diabetes Encounter Details Date Type Department Care Team (Late st Contact Info) Description 03/25/2013 9:30 AM EDT Office Visit [place] [address] Alissa Malave APRN [facility] [address] [place] [address] Type II or unspecified type diabetes mellitus [...] 29-minute office with 28 minutes been counseling [id number] with the patient and the management of [...] (ABNORMAL) Hemoglobin A1c (07/01/2013 10:45 AM EST) [facility] Hemoglobin A1c 8.4(H) 4.3 - 6.1 % [facility] Comment: The [place] Diabetes Association (ADA) has stated that HbA1c [...] 1:S11-S66. Estimated Average Glucose See note mg/dL [facility] Comment: Estimated Average Glucose not appropriate [...] into estimated average glucose values. ??Diabetes Care 2008:31(8):4565-9490. Blood specimen (specimen) 07/01/2013 10:45 AM EST 07/01/2013 10:49 AM EST Narrative Resulting Agency Comment Spec In Lab Vahid Philip MD CHEMISTRY ORDERABLES [facility] * (ABNORMAL) Hemoglobin A1c (03/25/2013 9:43 AM EDT) Hemoglobin A1c 8.3(H) 4.3 - 6.1 % [facility] Comment: The [place] Diabetes Association (ADA) has stated that HbA1c [...] 1:S11-S66. Estimated Average Glucose See note mg/dL [facility] Comment: Estimated Average Glucose not appropriate [...] into estimated average glucose values. ??Diabetes Care 2008:31(8):2766-4844. Blood specimen (specimen) 03/25/2013 9:43 AM EDT 03/25/2013 9:55 AM EDT Narrative Resulting Agency Comment Spec In Lab Vahid Philip MD CHEMISTRY ORDERABLES Performing Organization Address City/State/ZIP Co la Phone Number [facility] documented in this encounter Visit Diagnoses Diagnosis Type II or unspecified type diabetes mellitus without mention of complication, uncontrolled- Primary documented in this encounter Care Teams Multi Spindle Operator Relationship Specialty Start Date End Date Hannah Gagnon MD [address] [place] [address] PCP - General 08/08/11 11/07/18 documented as of this encounter
--- NOTE | 2024-04-28 15:33 | ED.GENADUL_ITS ---
Discharge Plan Disposition Patient Disposition: Home Condition: Good Discharge Details Clinical Impression: Back pain, Sciatica Primary Care Provider: Regis Muller ED Provider: Kyrie Tam Home Meds and New Rx's Prescriptions: New prednisone 50 mg tablet 50 mg PO DAILY Qty: 5 0RF lidocaine [Lidoderm] 5 % adhesive patch,medicated 1 patch Topical Q24H Qty: 15 0RF famotidine 40 mg tablet 40 mg PO DAILY Qty: 90 0RF cyclobenzaprine 10 mg tablet 10 mg PO TID Qty: 14 0RF No Action ferrous gluconate 324 mg (37.5 mg iron) tablet 324 mg PO DAILY amiodarone [Pacerone] 200 mg tablet 200 mg PO BID insulin glargine [Lantus U-100 Insulin] 100 UNITS/ML solution 25 unit Sub-Q BID Humalog U-100 Insulin 100 UNIT/ML cartridge 15 unit Sub-Q TID ascorbic acid (vitamin C) [Vitamin C] 1,000 mg Tablet 1,000 mg PO DAILY Multi For Her 18 mg iron-600 mcg-40 mcg Capsule 1 tab-cap PO DAILY pantoprazole [Protonix] 40 mg Tablet,Delayed Release (Dr/Ec) 40 mg PO BID rosuvastatin 20 mg Tablet 20 mg PO HS clopidogrel [Plavix] 75 mg tablet 75 mg PO DAILY metoprolol succinate 100 mg tablet extended release 24 hr 200 mg PO QHS amitriptyline 10 mg tablet 10 mg PO DIRECTED Patient Comments: TAKE ONE-HALF TO TWO TABLETS BY MOUTH AT BEDTIME Rx Instructions: 1/2 -2 tablets every night metronidazole 0.75 % cream 1 applic TOPICAL BID Patient Comments: APPLY A SMALL AMOUNT TO AFFECTED AREA TWICE A DAY glipizide 5 mg tablet 5 mg PO DAILY Patient Comments: TAKE ONE TABLET BY MOUTH EVERY DAY sucralfate 1 gram Tablet 1 g PO AC & HS Qty: 120 0RF gabapentin 100 mg capsule 100 mg PO TID Patient Comments: TAKE ONE CAPSULE BY MOUTH THREE TIMES A DAY vitamin B complex [B Complex-Vitamin B12] 1 EACH tablet 1 ea PO DAILY cholecalciferol (vitamin D3) [Vitamin D3] 1,000 UNIT capsule 1,000 unit PO DAILY losartan 100 MG tablet 100 mg PO HS (DME) OneTouch Ultra Test Strip MISCELLANEOUS Patient Comments: TEST THREE TIMES A DAY cyclobenzaprine 5 mg tablet 5 mg PO QHS PRN (Reason: muscle spasm) Qty: 7 0RF lidocaine [Lidoderm] 5 % adhesive patch,medicated 1 patch topical DAILY PRNQty: 15 0RF Rx Instructions: leave on most painful area for up to 12 hrs Discharge Instructions Instructions: Sciatica ED Additional Instructions: At this time you do have evidence of fairly severe degeneration, stenosis and disc bulging in your spine. This is likely causing the symptoms that you are feeling on the right. The temporary management is steroids for the next few days as well as continued Tylenol 1000 mg every 6 hours. I would avoid taking Aleve or ibuprofen as this can significantly increase the likelihood of a bleed or complication in your stomach with the other medications that you do take. While on the steroid and Tylenol I have also given you a prescription for an additional antiacid medication for your stomach. Please take this along with your current protonic and Carafate. Please follow-up closely with your primary care provider and resource management specialist for further outpatient management and follow-up. Would recommend further discussion with a diversity specialist on a nonemergent basis, as well as the initiation of physical therapy. We have included their phone numbers below, please reach out to them for further appointment scheduling. In the meantime do not lift anything greater than 5 pounds for the next 2 weeks. Avoid any significant vigorous physical activity. Perform easy gentle regular activities at home without any significant bending or lifting. Please take the steroids as directed. You have been given a prescription for Lidoderm patch. If your insurance does not cover this you can get [id number] Lidoderm patches at 4% which are almost just as effective. Please take the Flexeril as directed but do not take it when driving or operating any vehicles or heavy machinery, swimming, taking long baths, or operating firearms. Please use a heating pad as often as possible on your back. Perform daily gentle stretches o n your back. If you notice any worsening of your symptoms, or any new symptoms such as vomiting, diarrhea, fever, chills, shortness of breath, chest pain, numbness or tingling in your groin or legs, weakness in your legs, loss of control for your bowels or bladder, or fainting , please return immediately to the emergency department for reevaluation. Please follow up with your primary care provider as soon as possible for reassessment and reevaluation. As always, it was a pleasure participating in your medical care today. Stand Alone Forms: Physical Therapy Referral Referrals: Regis Muller MD [Primary Care Provider] - [facility] General Date/Time Provider Initiated Documentation: 04/28/24 14:17 . HPI Narrative: 83-year-old female with a past medical history of aortic valve disease and TAVR, diabetes, hypertension, high cholesterol, paroxysmal A-fib on Plavix and amiodarone presents today for evaluation of back pain. Patient states that she has had low back pain for the last 5 years, she was here in the emergency department about 5 weeks ago, for low back pain which she had been chronic. She was given dexamethasone and cyclobenzaprine. Exam was clinically nonconcerning at that time for life-threatening spinal etiology. Imaging was deferred with recommendation for outpatient follow-up. Patient unfortunately has not been able to follow-up secondary to personal and clinic cancellations. She states that her back pain has continued. She did contact her primary care provider who she states suggested taking Aleve and Tylenol together 5 days ago which she has been taking, as well as a prescription for gabapentin. This is only slightly i mproved the symptoms. Ice has been helping her back slightly, but has not resolved it. She has not been able to follow-up with any back specialist, her PCP or any resource management specialist. She denies any falls or trauma. Patient denies any saddle anesthesia, numbness or tingling in the groin, change in sensation when wiping. Patient denies any change in sensation during sexual intercourse, bowel or bladder incontinence, leakage, or retention. Patient denies any weakness in the lower extremities, atypical falls or imbalance. She states that the pain radiates down the right side of her back to the right anterior thigh. She admits to worsening of the pain with laying down flat for extended periods or significant bending. Related Data Home Medications ?Medication ?Instructions ?Recorded ?Confirmed insulin glargine 100 unit/mL 25 unit subcut BID 11/28/15 04/28/24 subcutaneous solution (Lantus U-100 Insulin) insulin lispro 100 unit/mL 15 unit subcut TID 11/28/15 04/28/24 subcutaneous cartridge (Humalog U-100 Insulin) cholecalciferol (vitamin D3) 25 1,000 unit PO DAILY 01/30/18 04/28/24 mcg (1,000 unit) capsule (Vitamin D3) losartan 100 mg tablet 100 mg PO HS 01/30/18 04/28/24 vitamin B complex (B 1 ea PO DAILY 01/30/18 04/28/24 Complex-Vitamin B12 tablet) ascorbic acid (vitamin C) 1,000 mg 1,000 mg PO DAILY 04/14/20 04/28/24 tablet (Vitamin C) yzozrifko-isd-ampy fumarate 18 1 tab-cap PO DAILY 04/14/20 04/28/24 mg-FA 600 mcg-vit K 40 mcg capsule (Multi For Her) pantoprazole 40 mg tablet,delayed 40 mg PO BID 06/10/20 04/28/24 release (Protonix) rosuvastatin 20 mg tablet 20 mg PO HS 06/10/20 04/28/24 amiodarone 200 mg tablet (Pacerone) 200 mg PO BID 11/05/20 04/28/24 clopidogrel 75 mg tablet (Plavix) 75 mg PO DAILY 11/05/20 04/28/24 ferrous gluconate 324 mg (37.5 mg 324 mg PO DAILY 11/05/20 04/28/24 iron) tablet amitriptyline 10 mg tablet 10 mg PO DIRECTED 07/22/21 04/28/24 glipizide 5 mg tablet 5 mg PO DAILY 07/22/21 04/28/24 metoprolol succinate 100 mg 200 mg PO QHS 07/22/21 04/28/24 tablet,extended release 24 hr metronidazole 0.75 % topical cream 1 applic topical BID 07/22/21 04/28/24 sucralfate 1 gram tablet 1 g PO AC & HS #120 tabs 07/23/21 04/28/24 blood sugar diagnostic (OneTouch 03/17/24 04/28/24 Ultra Test strips) cyclobenzaprine 5 mg tablet 5 mg PO QHS PRN muscle spasm #7 03/17/24 04/28/24 tabs lidocaine 5 % topical patch 1 patch topical DAILY PRN #15 ea 03/17/24 04/28/24 (Lidoderm) cyclobenzaprine 10 mg tablet 10 mg PO TID #14 tabs 04/28/24 famotidine 40 mg tablet 40 mg PO DAILY #90 tabs 04/28/24 gabapentin 100 mg capsule 100 mg PO TID 04/28/24 04/28/24 lidocaine 5 % topical patch 1 patch topical Q24H #15 ea 04/28/24 (Lidoderm) prednisone 50 mg tablet 50 mg PO DAILY #5 tabs 04/28/24 Previous Rx's ?Medication ?Instructions ?Recorded sucralfate 1 gram tablet 1 g PO AC & HS #120 tabs 07/23/21 cyclobenzaprine 5 mg tablet 5 mg PO QHS PRN muscle spasm #7 03/17/24 tabs lidocaine 5 % topical patch 1 patch topical DAILY PRN #15 ea 03/17/24 (Lidoderm) cyclobenzaprine 10 mg tablet 10 mg PO TID #14 tabs 04/28/24 famotidine 40 mg tablet 40 mg PO DAILY #90 tabs 04/28/24 lidocaine 5 % topical patch 1 patch topical Q24H #15 ea 04/28/24 (Lidoderm) prednisone 50 mg tablet 50 mg PO DAILY #5 tabs 04/28/24 Allergies Allergy/AdvReac Type Severity Reaction Status Date / Time codeine AdvReac Mild Nausea Verified 04/28/24 14:41 diltiazem AdvReac Mild Unknown Verified 04/28/24 14:41 epinephrine AdvReac Mild Unknown Verified 04/28/24 14:41 lisinopril AdvReac Mild cough Verified 04/28/24 14:41 pollen extracts AdvReac Topical Verified 04/28/24 14:41 Irritation General Stated Complaint: Nk/Back Pain LACEY: 3 Review of Systems All systems reviewed & are unremarkable except as noted in HPI and below Exam Narrative Exam Narrative: 1.Const: Well-nourished, Well-developed, appearing stated age 2.Eyes: PERRL, no conjunctival injection, and symmetrical lids. 3.ENT: Atraumatic external nose and ears. Moist MM. Neck: Symmetric, trachea midline, No thyromegaly. 4.CVS: +S1/S2, No murmurs or gallops. Peripheral pulses 2+ and equal in all extremities. Brisk capillary refill in all extremities. 5.RESP: Unlabored respiratory effort. Clear to auscultation bilaterally. No wheezes rales or rhonchi 6.GI: Soft, Nontender/Nondistended, No hepatosplenomegaly. No guarding or rebound. 7.MSK: Normocephalic/Atraumatic, Extremities w/o deformity or ttp No cyanosis or clubbing, Normal movement of all extremities No midline tenderness to palpation over the CTS spine. Patient does have mild midline tenderness over L3. Normal ROM in flexion, extension, side bend, and rotation. Patient has +5 out of 5 strength in the lower extremities in dorsiflexion and plantarflexion, knee flexion and extension, hip flexion and extension. Normal strength for dorsiflexion and plantar flexion of the great toe bilaterally. There is +2 over 2 dorsalis pedis pulses bilaterally. There is normal sensation to the skin with light touch at the foot, knee, and hip. Normal saddle sensation. Good sensation over the deep sural nerve area bilaterally. Rectal exam demonstrates good rectal tone with excellent ame-rectal sensation. Reflexes are +2 over 4 in the patellar reflex bilaterally. +5 out of 5 strength in the medial, ulnar, radial nerve distribution bilaterally in the hands as well as intact light touch sensation to these dermatomes on the hands 8.Skin: Warm, Dry. No rashes or lesions. 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 Sensation grossly intact, no focal neurologic deficits. 10.Psych: (AAO) x3. Appropriate mood and affect Course Vital Signs Vital signs: Vital Signs Temperature 36.3 C L 04/28/24 14:19 Pulse 75 04/28/24 14:19 Respiratory Rate 24 04/28/24 14:19 Pulse Oximetry 93 04/28/24 14:19 Temperature 36.3 C L 04/28/24 14:19 Temperature Source Temporal Artery Scan 04/28/24 14:19 Pulse 75 04/28/24 14:19 Respiratory Rate 24 04/28/24 14:19 Respiratory Effort Normal, Non-Labored 04/28/24 14:39 Blood Pressure Position Sitting 04/28/24 14:19 Pulse Oximetry 93 04/28/24 14:19 Oxygen Delivery Method Room Air 04/28/24 14:19 Oxygen Flow Rate 0 04/28/24 14:19 Pain Level 10 04/28/24 14:31 Medical Decision Making 83-year-old female with a past medical history of aortic valve disease and TAVR, diabetes, hypertension, high cholesterol, paroxysmal A-fib on Plavix and amiodarone presents today for evaluation of back pain. Patient states that she has had low back pain for the last 5 years, she was here in the emergency department about 5 weeks ago, for low back pain which she had been chronic. She was given dexamethasone and cyclobenzaprine. Exam was clinically nonconcerning at that time for life-threatening spinal etiology. Imaging was deferred with recommendation for outpatient follow-up. Patient unfortunately has not been able to follow-up secondary to personal and clinic cancellations. She states that her back pain has continued. She did contact her primary care provider who she states suggested taking Aleve and Tylenol together 5 days ago which she has been taking, as well as a prescription for gabapentin. This is only slightly improved the symptoms. Ice has been helping her back slightly, but has not resolved it. She has not been able to follow-up with any back specialist, her PCP or any resource management specialist. She denies any falls or trauma. Patient denies any saddle anesthesia, numbness or tingling in the groin, change in sensation when wiping. Patient denies any change in sensation during sexual intercourse, bowel or bladder incontinence, leakage, or retention. Patient denies any weakness in the lower extremities, atypical falls or imbalance. She states that the pain radiates down the right side of her back to the right anterior thigh. She admits to worsening of the pain with laying down flat for extended periods or significant bending. Physical exam demonstrates well-appearing female, she does have mild midline spinal tenderness over L3. No concerning red flags for cauda equina syndrome, spinal epidural abscess, fracture. Paraspinal abscess and hematoma is unlikely given absence of fevers chills or falls or trauma. Concern for spinal stenosis, lumbar disc pathology. Vertebral body fracture less likely. Will get CT imaging for further assessment. Will give oral prednisone and Lidoderm patch. Will monitor closely and reassess. 4:[address] scan shows evidence of severe central spinal canal stenosis, notable arthropathy, and foraminal stenosis, but no evidence clinically of cauda equina syndrome or radiographically. Patient otherwise feels well and demonstrates no life-threatening neurovascular compromise on exam and history and imaging. We will start the patient on a 5-day burst of steroids, we we will also start her on famotidine to help reduce the risk of ulcer. We recommend that she stops taking the Aleve and Motrin, and just stick with Tylenol for the time being. Recommend continued Lidoderm patch and Flexeril as needed. Recommend close follow-up with PCP and nonemergent outpatient referral to spine center if needed. I have extensively reviewed the treatment plan and discharge instructions with the patient. I have addressed all patient concerns at this time. The patient was made aware of what symptoms to monitor for that would warrant a return to the emergency department. Discussed the plan with the patient, they demonstrate verbal understanding and agreement with our assessment and plan at this time. The documentation in this chart was dictated using [employer] dictation software. Please excuse any dictation errors. FINDINGS: Bones: There are no fractures, listhesis, nor pars defects. There are no lytic blastic osseous lesions evident.No significant scoliosis. INDIVIDUAL LEVELS: T12-L1:Normal disc height. No disc herniation nor significant central spinal canal stenosis. No significant foraminal stenosis. No significant facet arthropathy. L1-2: Schmorl's node invagination at superior endplate of L2 noted. There is disc space narrowing noted posteriorly at this level. There is relatively symmetrical annular bulging. Also posterior osteophytic ridging. There is mild-moderate central spinal canal stenosis at this level. No significant facet arthropathy evident. No true foraminal stenosis on either side. L2-3: There is symmetrical disc space narrowing posteriorly at this level. There is symmetrical annular bulging without a dominant disc herniation. Mild central spinal canal stenosis. Mild facet degenerative changes. No significant foraminal stenosis. L3-4: This level exhibits normal disc height. Posteriorly there is broad sym metrical annular bulging evident. There mild central canal stenosis due to annular bulging, short AP dimensions of the pedicles, and mild degenerative changes in the facet joints. There is no prominent ligamentum flavum hypertrophy. Annular bulging extends into the exiting neural foramen at this level but there is no true foraminal stenosis evident. L4-5: This level exhibits chronic disc space narrowing and vacuum phenomenon throughout the disc space. There is broad symmetrical annular bulging. No obvious focal disc herniation. There is severe central spinal canal stenosis due to short AP dimensions the pedicles, broad annular bulging and facet arthropathy. There is no prominent ligamentum flavum hypertrophy. related to the short AP dimensions of the pedicles and degenerative change in the facet joints, compound by some a annular bulging into the floor of the exiting neural foramina bilaterally. L5-S1: This disc level also exhibits some vacuum phenomenon but relatively preserved disc height. There is no evidence of disc herniation or central canal stenosis at this level. Only mild facet arthropathy evident. There is an element of foraminal stenosis bilaterally due to disc height loss posteriorly with mild impingement of the exiting nerve roots within the bilateral neural foramen, these impinged between the overlying L5 pedicles and subjacent annular bulging and posterior osteophytic ridging. The visualized sacroiliac joints and sacrum appear age-appropriate PARASPINAL SOFT TISSUES: Visualized paraspinal tissues appear unremarkable. The abdominal aorta is heavily calcified but not enlarged. The iliac arteries are also not aneurysmal. IMPRESSION: 1. Multilevel findings as described above. However, the most significant findings appear to be at L4-5 level where there is severe central spinal canal stenosis due to broad annular bulging, short AP dimensions of the pedicles and bilateral facet arthropathy. There is also significant bilateral foraminal stenosis at this level which is none mostly related to the short AP dimensions of the pedicles and degenerative change in the facet joints, compound by some a annular bulging into the floor of the exiting neural foramina bilaterally. 2. Other findings as described per individual level above. Quality:SDOH Health Related Social Needs: No Data to Display PFSH All Active Problems (Updated 04/28/24 @ 15:43 by Kyrie Tam DO) Sciatica (Acute) Back pain (Acute) Exposure to COVID-19 virus (Acute ~04/12/23) Acute on chronic diastolic CHF (congestive heart failure), NYHA class 2 (Chronic) Cervical disc herniation (Chronic) Diabetes mellitus (Chronic) S/P TAVR (transcatheter aortic valve replacement) (Acute) Anemia (Acute) Medical History Spinal stenosis Paroxysmal atrial fibrillation Atherosclerotic cardiovascular disease Aortic stenosis Acute cholecystitis BP (high blood pressure) Degenerative joint disease of right knee Closed fracture of left distal fibula (03/31/19) Surgical History H/O esophagogastroduodenoscopy (~2019) S/P colonoscopy (~2019) History of hysterectomy History of cataract surgery Social History Smoking/Tobacco Use Status: Never Smoking risk assessment performed?: Yes Alcohol Intake: never Drug use: Never Substance use type: does not use Housing: house What type of physical activity do you participate in: additional Details: PT to start Do you feel safe at home: Yes Do you feel safe in your relationship?: Yes
--- NOTE | 2024-05-01 09:39 | NUR.NOTE ---
Addendum entered by Antonette Mcneill 05/01/24 09:55: Prior authorization for lidocaine 5% patches; Original Note: Access chart to fax medication prior authorization forms to them. Nursing Note:
== END 2024-04-28 16:41 | disposition home or self-care (01) ==
PROVIDERS: Emergency Provider Student in an Organized Health Care Education/Training Program; PCP Family Medicine
DX: M51.36 Other intervertebral disc degeneration, lumbar region (principal); M48.061 Spinal stenosis, lumbar region without neurogenic claudication; M54.30 Sciatica, unspecified side; I48.0 Paroxysmal atrial fibrillation; I10 Essential (primary) hypertension; E11.9 Type 2 diabetes mellitus without complications; Z79.4 Long term (current) use of insulin; Z79.84 Long term (current) use of oral hypoglycemic drugs; Z79.02 Long term (current) use of antithrombotics/antiplatelets
CPT/HCPCS: 81025; 99284; 72131; 99283; J7512

== ENCOUNTER 2024-05-05 08:42 | Emergency (ER) | payer MEDICARE, SELFPAY ==
[2024-05-05] VITALS (11 sets, daily range): BP systolic 159–245; BP diastolic 58–92; PULSE 68–88; RESP 17–18; O2SAT 94–100
--- NOTE | 2024-05-05 09:05 | ED.GENADUL_ITS ---
Discharge Plan Disposition Patient Disposition: Home Condition: Stable Discharge Details Clinical Impression: Degenerative lumbar spinal stenosis, Diabetes mellitus, S/P TAVR (transcatheter aortic valve replacement), Anemia, Back pain, Sciatica Primary Care Provider: Regis Muller ED Provider: Velma Weldon Home Meds and New Rx's Prescriptions: New cyclobenzaprine 5 mg tablet 5 mg PO TID PRNQty: 10 0RF No Action ferrous gluconate 324 mg (37.5 mg iron) tablet 324 mg PO DAILY amiodarone [Pacerone] 200 mg tablet 200 mg PO BID insulin glargine [Lantus U-100 Insulin] 100 UNITS/ML solution 25 unit Sub-Q BID Humalog U-100 Insulin 100 UNIT/ML cartridge 15 unit Sub-Q TID ascorbic acid (vitamin C) [Vitamin C] 1,000 mg Tablet 1,000 mg PO DAILY Multi For Her 18 mg iron-600 mcg-40 mcg Capsule 1 tab-cap PO DAILY pantoprazole [Protonix] 40 mg Tablet,Delayed Release (Dr/Ec) 40 mg PO BID rosuvastatin 20 mg Tablet 20 mg PO HS clopidogrel [Plavix] 75 mg tablet 75 mg PO DAILY metoprolol succinate 100 mg tablet extended release 24 hr 200 mg PO QHS amitriptyline 10 mg tablet 10 mg PO DIRECTED Patient Comments: TAKE ONE-HALF TO TWO TABLETS BY MOUTH AT BEDTIME Rx Instructions: 1/2 -2 tablets every night metronidazole 0.75 % cream 1 applic TOPICAL BID Patient Comments: APPLY A SMALL AMOUNT TO AFFECTED AREA TWICE A DAY glipizide 5 mg tablet 5 mg PO DAILY Patient Comments: TAKE ONE TABLET BY MOUTH EVERY DAY sucralfate 1 gram Tablet 1 g PO AC & HS Qty: 120 0RF gabapentin 100 mg capsule 100 mg PO TID Patient Comments: TAKE ONE CAPSULE BY MOUTH THREE TIMES A DAY famotidine 40 mg tablet 40 mg PO DAILY Qty: 90 0RF vitamin B complex [B Complex-Vitamin B12] 1 EACH tablet 1 ea PO DAILY cholecalciferol (vitamin D3) [Vitamin D3] 1,000 UNIT capsule 1,000 unit PO DAILY losartan 100 MG tablet 100 mg PO HS (DME) OneTouch Ultra Test Strip MISCELLANEOUS Patient Comments: TEST THREE TIMES A DAY lidocaine [Lidoderm] 5 % adhesive patch,medicated 1 patch topical DAILY PRNQty: 15 0RF Rx Instructions: leave on most painful area for up to 12 hrs Discharge Instructions Instructions: Low Back Pain ED Additional Instructions: You were seen in the emergency department today for evaluation of low back pain. In our department you had a full physical examination performed, had laboratory studies that were reassuring, though we did notice a worsening of your anemia. You should continue to take your iron as prescribed, and your primary care doctor will need to follow-up to recheck your laboratory studies in the next week to ensure that your hemoglobin does not decreased to the point where you will require blood transfusion. You had an MRI performed in our department that did not show any evidence of compression of the spinal cord, and I have sent a referral to the spine clinic at [facility], and sent to those images to their department. They should reach out to schedule an appointment with you. To manage your pain at home, please continue to use your lidocaine patches, Tylenol, and I have provided you with Flexeril to be taken as needed for breakthrough pain. You should not take NSAIDs such as ibuprofen or Aleve, and I would not recommend an additional course of steroids at this time given your headache and high blood sugar. Thank you for allowing us to be part of your care, you can return to the emergency department if you develop any fevers or chills, numbness or weakness of 1 leg or the other, urinary retention, or incontinence of stool. HPI General Mode of arrival: ambulatory . Date/Time Provider Initiated Documentation: 05/05/24 08:56 . Limitations to Documentation: no limitations . Information obtained by: patient . HPI Narrative: MDM: In brief, this is an 83-year-old female patient with a past medical history most notable for low back pain due to lumbar spinal and foraminal stenosis, insulin-dependent diabetes, and history of TAVR/atrial fibrillation on dual antiplatelet therapy, no anticoagulation, who is presenting for evaluation of acute on chronic low back pain and new fecal incontinence. My differential includes but is not limited to cauda equina, the patient is without fever or recent instrumentation to significantly increase my concern for spinal epidural abscess or hematoma. She has no significant neurodeficits such as weakness, numbness, or saddle anesthesia, though her new fecal incontinence is concerning. She has no urinary symptoms such as dysuria or hematuria to suggest urinary tract infection, kidney stone. She has had imaging that did not show any evidence of aortic pathology to suggest aneurysm or dissection. She has not had any recent trauma to suggest fracture, dislocation. Additionally, the patient is complaining of headache and hyperglycemia in the setting of her recent steroid burst. I considered metabolic and electrolyte derangements, kidney injury, DKA, HHS. We will obtain laboratory studies to include CBC, CMP, PT/INR, and will provide the patient with a liter of IV fluids. Shared decision-making conversation regarding pain management. I will give the patient a single dose of Toradol with the understanding that the patient is not a good candidate for long-term NSAID therapy given her dual antiplatelet therapy. I will also provide her with a dose of Flexeril as she has not been utilizing this in the outpatient environment. She is not due for repeat dose of Tylenol until 11 AM. Given the cauda equina concern we will proceed with MRI of the lumbar spine without contrast to better characterize any abnormalities that would require surgical intervention. ED Course: I reviewed the patient's laboratory studies, which show no leukocytosis but do demonstrate a worsening anemia to 8.6 today, with a stable platelet count. The patient has had episodes of anemia in the past, was diagnosed with iron deficiency, did not have any identified GI bleeds on her last colonoscopy. She reports that she is not experiencing melena, and occasionally has blood on the paper when she wipes but has not had hematochezia or large-volume blood per rectum. She is not experiencing chest pain, abdominal pain, and I did recommend that she have her primary care provider recheck her hemoglobin at a visit within the next week to ensure that she is not continuing to downtrend, and recommended avoidance of NSAIDs and continuing her prescribed iron. Metabolic panel is without electrolyte derangements, patient does have a mild elevation in her BUN to 28 and creatinine to 1.2, glucose is 296, no evidence of liver abnormalities. The patient's PT/INR is normal. MRI imaging was reviewed by myself, and discussed with the radiologist, and shows no evidence of cauda equina or other emergent surgical abnormalities to account for her pain and fecal changes. She did redemonstrate the L4/5 spinal canal stenosis and foraminal stenosis. I provided her with the [facility] spine clinic referral, and MRI imaging will be pushed to that facility. The patient reports that her pain has significantly improved here in the emergency department, I counseled Tylenol, and provided her with a prescription for Flexeril for ongoing management given her need to avoid excessive NSAIDs. I will avoid steroids, as she had a poor reaction to them, with hyperglycemia and headache (which is now resolved after fluids) At this time, the patient has had a full medical evaluation and is safe for discharge to home. They are hemodynamically stable, ambulatory, and tolerating PO. They are understanding of the follow-up plan and return precautions. They left our facility without incident. Velma Weldon MD HPI: This is an 83-year-old female patient with a past medical history significant for lower back pain due to lumbar spinal canal and foraminal stenosis, history of insulin-dependent diabetes, and history of TAVR and atrial fibrillation on DAPT, not anticoagulated, presenting for evaluation by EMS with worsening lower back pain and new fecal incontinence. The patient reports that she was evaluated here approximately a week ago, at that time had CT imaging demonstrating the above-noted findings, and was recommended to start a steroid burst, continue multimodal pain control, and follow-up with outpatient spine. The patient reports that she took the steroids for 3 days but noted a new headache, worsening of her blood glucose control, and excessively dry mouth. For this reason she stopped taking the medication, continued the Tylenol and lidocaine patches. She has not been utilizing NSAIDs per our recommendation at her last visit, states that she has not tried the Flexeril yet. The patient reports that she has been attempting to get in with a spine surgeon, but has had difficulty as they will not see her without MRI imaging. She also states that she has been trying to schedule with MRI but was unable to navigate the scheduling system. The patient was prompted to seek EMS care this morning because her pain has worsened despite the above-noted medication regimens. She has also been trialing heat and ice without improvement. The patient reports that this morning she woke up and noted that she had had an episode of diarrhea without noticing it. She states that she has not had abdominal pain, fevers or chills, dysuria, hematuria and has not noted any urinary retention. She had 3 episodes of diarrhea this morning, no bloody stools reported, and was concerned that this may be due to the medications that she was taking. The patient reports that she is not experiencing any saddle anesthesia, denies weakness, numbness, or tingling of her lower extremities. No new traumatic events reported. Exam: Gen: Awake and alert, in no apparent distress HEENT: Non-icteric sclera, PERRL, EOMs full Neck: Supple, no meningismus Lungs: No apparent respiratory distress, normal respiratory effort. CV: Appears well perfused, strong and symmetrical distal pulses Abdomen: Non-distended, soft MSK: Moves 4 extremities without apparent limitation in ROM. The patient has tenderness to palpation over the lumbar spine without step-offs Skin: Visualized skin without rashes, cyanosis. Neuro: Ambulates with a hunched over gait, no ataxia. Cranial nerves II through XII intact and symmetrical bilaterally. 5 out of 5 strength x 4 extremities, symmetrical bilaterally. No sensory deficits to the lower extremities noted. Psych: Appropriate for situation. Related Data Home Medications ?Medication ?Instructions ?Recorded ?Confirmed insulin glargine 100 unit/mL 25 unit subcut BID 11/28/15 05/05/24 subcutaneous solution (Lantus U-100 Insulin) insulin lispro 100 unit/mL 15 unit subcut TID 11/28/15 05/05/24 subcutaneous cartridge (Humalog U-100 Insulin) cholecalciferol (vitamin D3) 25 1,000 unit PO DAILY 01/30/18 05/05/24 mcg (1,000 unit) capsule (Vitamin D3) losartan 100 mg tablet 100 mg PO HS 01/30/18 05/05/24 vitamin B complex (B 1 ea PO DAILY 01/30/18 05/05/24 Complex-Vitamin B12 tablet) ascorbic acid (vitamin C) 1,000 mg 1,000 mg PO DAILY 04/14/20 05/05/24 tablet (Vitamin C) [id number] fumarate 18 1 tab-cap PO DAILY 04/14/20 05/05/24 mg-FA 600 mcg-vit K 40 mcg capsule (Multi For Her) pantoprazole 40 mg tablet,delayed 40 mg PO BID 06/10/20 05/05/24 release (Protonix) rosuvastatin 20 mg tablet 20 mg PO HS 06/10/20 05/05/24 amiodarone 200 mg tablet (Pacerone) 200 mg PO BID 11/05/20 05/05/24 clopidogrel 75 mg tablet (Plavix) 75 mg PO DAILY 11/05/20 05/05/24 ferrous gluconate 324 mg (37.5 mg 324 mg PO DAILY 11/05/20 05/05/24 iron) tablet amitriptyline 10 mg tablet 10 mg PO DIRECTED 07/22/21 05/05/24 glipizide 5 mg tablet 5 mg PO DAILY 07/22/21 05/05/24 metoprolol succinate 100 mg 200 mg PO QHS 07/22/21 05/05/24 tablet,extended release 24 hr metronidazole 0.75 % topical cream 1 applic topical BID 07/22/21 05/05/24 sucralfate 1 gram tablet 1 g PO AC & HS #120 tabs 07/23/21 05/05/24 blood sugar diagnostic (OneTouch 03/17/24 05/05/24 Ultra Test strips) lidocaine 5 % topical patch 1 patch topical DAILY PRN #15 ea 03/17/24 05/05/24 (Lidoderm) famotidine 40 mg tablet 40 mg PO DAILY #90 tabs 04/28/24 05/05/24 gabapentin 100 mg capsule 100 mg PO TID 04/28/24 05/05/24 cyclobenzaprine 5 mg tablet 5 mg PO TID PRN #10 tabs 05/05/24 Previous Rx's ?Medication ?Instructions ?Recorded sucralfate 1 gram tablet 1 g PO AC & HS #120 tabs 07/23/21 lidocaine 5 % topical patch 1 patch topical DAILY PRN #15 ea 03/17/24 (Lidoderm) famotidine 40 mg tablet 40 mg PO DAILY #90 tabs 04/28/24 cyclobenzaprine 5 mg tablet 5 mg PO TID PRN #10 tabs 05/05/24 Allergies Allergy/AdvReac Type Severity Reaction Status Date / Time codeine AdvReac Mild Nausea Verified 05/05/24 08:50 diltiazem AdvReac Mild Unknown Verified 05/05/24 08:50 epinephrine AdvReac Mild Unknown Verified 05/05/24 08:50 lisinopril AdvReac Mild cough Verified 05/05/24 08:50 pollen extracts AdvReac Topical Verified 05/05/24 08:50 Irritation General Stated Complaint: Nk/Back Pain LACEY: 3 Course Vital Signs Vital signs: Vital Signs Pulse 88 05/05/24 08:43 Respiratory Rate 17 05/05/24 08:43 Blood Pressure 159/72 H 05/05/24 08:43 Pulse Oximetry 97 05/05/24 08:43 Pulse 88 05/05/24 08:43 Respiratory Rate 17 05/05/24 08:43 Respiratory Effort Normal 05/05/24 08:48 Blood Pressure 159/72 H 05/05/24 08:43 Blood Pressure Position Sitting 05/05/24 08:43 Pulse Oximetry 97 05/05/24 08:43 Oxygen Delivery Method Room Air 05/05/24 08:43 Oxygen Flow Rate 0 05/05/24 08:43 Pain Level 4 05/05/24 08:49 Medical Decision Making Quality:SDOH Health Related Social Needs: No Data to Display PFSH All Active Problems (Updated 05/05/24 @ 10:52 by Velma Weldon MD) Degenerative lumbar spinal stenosis (Acute) Sciatica (Acute) Back pain (Acute) Exposure to COVID-19 virus (Acute ~04/12/23) Acute on chronic diastolic CHF (congestive heart failure), NYHA class 2 (Chronic) Cervical disc herniation (Chronic) Diabetes mellitus (Chronic) S/P TAVR (transcatheter aortic valve replacement) (Acute) Anemia (Acute) Medical History Spinal stenosis Paroxysmal atrial fibrillation Atherosclerotic cardiovascular disease Aortic stenosis Acute cholecystitis BP (high blood pressure) Degenerative joint disease of right knee Closed fracture of left distal fibula (03/31/19) Surgical History H/O esophagogastroduodenoscopy (~2020) S/P colonoscopy (~2020) History of hysterectomy History of cataract surgery Social History Smoking/Tobacco Use Status: Never Smoking risk assessment performed?: Yes Alcohol Intake: never Drug use: Never Substance use type: does not use Housing: house What type of physical activity do you participate in: additional Details: PT to start Do you feel safe at home: Yes Do you feel safe in your relationship?: Yes
[2024-05-05 09:26] LABS: Abs Immature Grans 0.03 10^3/uL (0.0-0.06); Absolute Basophil Count 0.06 10^3/uL (0.0-0.2); Absolute Eosinophil Count 0.31 10^3/uL (0.0-0.7); Absolute Lymphocyte Count 1.98 10^3/uL (1.2-3.4); Absolute Monocyte Count 0.59 10^3/uL (0.1-0.8); Absolute Neutrophil Count 7.06 10^3/uL (1.2-6.7); Basophils % 0.6 %; Eosinophils % 3.1 %; HCT 29.1 % (36.0-46.0); HGB 8.6 g/dL (11.2-15.7); Immature Grans % 0.3 %; Lymphocytes % 19.7 %; MCH 22.8 pg (27.0-33.0); MCHC 29.6 % (32.0-36.0); MCV 77 fL (80-95); MPV 9.7 fL (8.0-11.0); Monocytes % 5.9 %; Neutrophils % 70.4 %; Platelet Count 247 10^3/uL (130-400); RBC 3.77 10^6/uL (3.93-5.22); RDW 15.9 % (11.7-14.6); RDW-SD 44.5 fL; WBC 10.03 10^3/uL (4.4-10.8)
[2024-05-05] MEDS: Cyclobenzaprine 10 MG TAB 5 MG PO (09:28)
[2024-05-05] MEDS: Ketorolac 15 MG/ML VIAL IVP (09:28)
[2024-05-05 09:36] LABS: Prothrombin Time 10.4 sec (9.1-11.1)
[2024-05-05 10:03] LABS: ALT 35 U/L (14-59); AST 24 U/L (15-37); Albumin 3.4 g/dL (3.4-5.0); Alkaline Phosphatase 160 U/L (46-116); Anion Gap 10.8 mmol/L (3-11); BUN 28 mg/dL (7-18); Bilirubin, Total 0.99 mg/dL (0.2-1.0); CO2 25.2 mmol/L (21.0-32.0); CREATININE 1.2 mg/dL (0.55-1.02); Calcium 8.6 mg/dL (8.5-10.1); Chloride 101 mmol/L (98-107); Estimated GFR 44.91 (mL/min/1.73m2); Glucose 296 mg/dL (74-106); Potassium 3.6 mmol/L (3.5-5.1); Sodium 137 mmol/L (136-145); Total Protein 6.8 g/dL (6.4-8.2)
--- NOTE | 2024-05-05 10:15 | DI.MRI_ITS ---
Exam(s) MR LUMBAR SPINE WO EXAM: MR LUMBAR SPINE WO CLINICAL HISTORY: Low back pain, new fecal incontinence, eval cauda. TECHNIQUE: Multiplanar multisequence MRI of the Lumbar spine was performed. COMPARISON: MR MR LUMBAR SPINE WO from 06/14/2021 CR XR LUMBAR SPINE COMPLETE from 12/25/2023 FINDINGS: Bones: The last intervertebral disc space is designated the L5/S1 level for the numbering purpose of this ex amination. The vertebral body heights are well maintained. Schmorl's nodes noted at superior and inferior endpl ates of L2. Alignment: Unremarkable. The marrow signal characteristics are unremarkable. Cord: The conus tip ends at the T12 level. It is of normal size and signal intensity. T11-12: Posterior osteophytes. No focal disc herniation. No central canal stenosis. Mild bilateral neural foraminal narrowing. T12-L1: No focal disc herniation is present. No central spinal canal stenosis.No neural foraminal st enosis. L1-2:Osteophytes projecting posterior laterally. No focal disc herniation is present. Mild central spinal canal stenosis.Mild bilateral neural foraminal stenosis. L2-3:Circumferential disc osteophytes. Facet degenerative changes. No focal disc herniation is pres ent. [id number] central spinal canal stenosis.Mild bilateral neural foraminal stenosis. L3-4: Small endplate osteophytes. [id number] facet degenerative changes.No focal disc herniati on is present. Mild central spinal canal stenosis.Mild bilateral neural foraminal stenosis. L4-5:Moderate severe loss of disc height. Circumferentially projecting endplate osteophytes. Facet degenerative changes. No focal disc herniation is present. Severe central spinal canal stenosis.Sev ere bilateral neural foraminal stenosis. L5-S1: No focal disc herniation is present. Minimal endplate osteophytes. Mild facet degenerative c hanges. No central spinal canal stenosis.No neural foraminal stenosis. The visualized SI joints and sacrum are unremarkable. Soft tissues: The paraspinal soft tissues are unremarkable. IMPRESSION: Severe central canal stenosis at L4-5 as well as severe bilateral neural foraminal narrowing secondar y to combination of degenerative changes. Mild central canal stenosis noted and bilateral neural for aminal narrowing at L1-2 through L3-4. DATA REPOSITORY:
[2024-05-05] MEDS: Lactated Ringers 1,000 ML 1000 ML IV (10:34)
== END 2024-05-05 11:31 | disposition home or self-care (01) ==
PROVIDERS: Emergency Provider Emergency Medicine; PCP Family Medicine
DX: M54.50 Low back pain, unspecified (principal); M48.061 Spinal stenosis, lumbar region without neurogenic claudication; R19.7 Diarrhea, unspecified; R15.9 Full incontinence of feces; M54.30 Sciatica, unspecified side
CPT/HCPCS: 36415; 80053; 96361; 96374; 99284; 72148; 85025; 85610; 99283; J1885

== ENCOUNTER 2024-06-14 10:14 | Emergency (ER) | payer MEDICARE, SELFPAY ==
[2024-06-14 10:22] VITALS: BP 181/75; PULSE 72; RESP 16; TEMP 36.4; O2SAT 96
--- NOTE | 2024-06-14 10:30 | DI.CT_ITS ---
Exam(s) CT HEAD CERVICAL SPINE WO EXAM: CT HEAD CERVICAL SPINE WO CLINICAL HISTORY: Fall with head strike. TECHNIQUE: Imaging Protocol: Axial computed tomography images with coronal and sagittal reformatted images were created and reviewed COMPARISON: CT CT CERVICAL SPINE WO from 05/25/2021 FINDINGS: CT Head: Ventricles and Extra axial spaces: Normal in size and morphology for the patient's age. Hemorrhage: None. Cerebral parenchyma: No evidence of an acute territorial infarct. No acute mass effect. There are a reas of decreased attenuation in the white matter most consistent with chronic microvascular ischemic disease. Midline shift: None. Brainstem/Cerebellum: Normal. Calvarium: Normal. Visualized Paranasal sinuses/Mastoids: Clear. Soft Tissues: Unremarkable. CT Cervical Spine: Bones: No acute fracture or subluxation. Age-appropriate degenerative changes are present. There is straightening of the normal cervical lordosis. This may be due to muscle spasm or patient positionin g. Soft Tissues: Unremarkable. Lung Apices: No evidence of an apical pneumothorax. No focal infiltrates are seen. IMPRESSION: 1. No acute intracranial process. 2. No acute fracture or subluxation in the cervical spine. RADIATION DOSE DELIVERED: 1,203.08mGy.cm Total DLP DATA REPOSITORY: All CT scans at this facility are submitted to the National Radiology Data Registry (NRDR) Dose Index Registry (DIR) with the [employer] ([employer]). RADIATION OPTIMIZATION: All CT scans at this facility use at least one of these dose optimization te chniques: automated exposure control; mA and/or kV adjustment per patient size (includes targeted exa ms where dose is matched to clinical indication); or iterative reconstruction.
--- NOTE | 2024-06-14 10:39 | DI.RAD_ITS ---
Exam(s) XR SHOULDER RT COMPLETE 2+V EXAM: XR SHOULDER RT COMPLETE 2+V CLINICAL HISTORY: fall, landed on shoulder. TECHNIQUE: 2D digital imaging was performed of the right shoulder. Five images were obtained. AP, Grashey, Y-view and axillary views were obtained. COMPARISON: CR XR SHOULDER LT COMPLETE 2+V from 05/22/2023 FINDINGS: BONES: No acute fracture is present. No bony destructive lesion is seen. JOINTS: No dislocation present. There are degenerative changes seen at the acromioclavicular joint an d the glenohumeral joint. There is an bony spur arising from the undersurface of the acromion. SOFT TISSUE: Normal. IMPRESSION: No acute fracture or dislocation. DATA REPOSITORY: RADIATION DOSE DELIVERED:
--- NOTE | 2024-06-14 10:41 | ED.GENADUL_ITS ---
Discharge Plan Disposition Patient Disposition: Home Condition: Stable Discharge Details Clinical Impression: Accidental fall from bed, Diabetes mellitus, S/P TAVR (transcatheter aortic valve replacement), Anemia, Acute on chronic diastolic CHF (congestive heart failure), NYHA class 2, Acute pain of right shoulder due to trauma Primary Care Provider: Regis Muller ED Provider: Velma Weldon Home Meds and New Rx's Prescriptions: No Action ferrous gluconate 324 mg (37.5 mg iron) tablet 324 mg PO DAILY amiodarone [Pacerone] 200 mg tablet 200 mg PO BID insulin glargine [Lantus U-100 Insulin] 100 UNITS/ML solution 25 unit Sub-Q BID Humalog U-100 Insulin 100 UNIT/ML cartridge 15 unit Sub-Q TID ascorbic acid (vitamin C) [Vitamin C] 1,000 mg Tablet 1,000 mg PO DAILY Multi For Her 18 mg iron-600 mcg-40 mcg Capsule 1 tab-cap PO DAILY pantoprazole [Protonix] 40 mg Tablet,Delayed Release (Dr/Ec) 40 mg PO BID rosuvastatin 20 mg Tablet 20 mg PO HS clopidogrel [Plavix] 75 mg tablet 75 mg PO DAILY metoprolol succinate 100 mg tablet extended release 24 hr 200 mg PO QHS amitriptyline 10 mg tablet 10 mg PO DIRECTED Patient Comments: TAKE ONE-HALF TO TWO TABLETS BY MOUTH AT BEDTIME Rx Instructions: 1/2 -2 tablets every night metronidazole 0.75 % cream 1 applic TOPICAL BID Patient Comments: APPLY A SMALL AMOUNT TO AFFECTED AREA TWICE A DAY glipizide 5 mg tablet 5 mg PO DAILY Patient Comments: TAKE ONE TABLET BY MOUTH EVERY DAY sucralfate 1 gram Tablet 1 g PO AC & HS Qty: 120 0RF gabapentin 100 mg capsule 100 mg PO TID Patient Comments: TAKE ONE CAPSULE BY MOUTH THREE TIMES A DAY famotidine 40 mg tablet 40 mg PO DAILY Qty: 90 0RF vitamin B complex [B Complex-Vitamin B12] 1 EACH tablet 1 ea PO DAILY cholecalciferol (vitamin D3) [Vitamin D3] 1,000 UNIT capsule 1,000 unit PO DAILY losartan 100 MG tablet 100 mg PO HS (DME) OneTouch Ultra Test Strip MISCELLANEOUS Patient Comments: TEST THREE TIMES A DAY cyclobenzaprine 5 mg tablet 5 mg PO TID PRNQty: 10 0RF Discharge Instructions Instructions: Shoulder Pain ED HPI General Mode of arrival: ambulatory . Date/Time Provider Initiated Documentation: 06/14/24 10:16 . Limitations to Documentation: no limitations . Information obtained by: patient, family and old records reviewed . HPI Narrative: HPI: This is an 83-year-old female patient with a past medical history significant for CHF, diabetes, TAVR, and anemia. She is presenting for evaluation today after a fall from bed. She reports that around 2 AM last night she was getting up to use the bathroom, and was on slippery bed sheets, which slid off the bed. She slid off the bed along with them, struck the right side of her head against the bedside table and landed on her right shoulder. She did not sustain loss of consciousness during this event, and the fall was not preceded by any dizziness, chest pain, or syncope. She reports immediately after hitting her head that she had some dizziness, which has improved. She states that she is most concerned because she is experiencing some significant pain in her right shoulder especially with range of motion. She states that she was not able to brush her hair due to the pain this morning. She was able to ambulate after this event, denies hip or back pain, and has taken Tylenol and used ice for symptomatic management of pain. Prior to this event she was in her normal state of health and she is without other complaints at this time. Has no chest pain, shortness of breath, recent illness. Exam: Gen: Awake and alert, in no apparent distress HEENT: Non-icteric sclera, PERRL. The patient has an abrasion to her right methodist, with no deformity or significant tenderness to palpation. Otherwise the scalp and face are atraumatic Neck: Supple, full range of motion, mild tenderness to palpation at the midline around the area of C7, with no step-offs. Lungs: No apparent respiratory distress, normal respiratory effort. CV: Appears well perfused, strong distal pulses Abdomen: Non-distended, soft, nontender MSK: Moves 4 extremities without apparent limitation in ROM with the exception of her right shoulder, which is tender to palpation in all aspects. She has no deformity or tenting of the skin overlying the clavicle, has no sensory deficits, no deformity of the shoulder overlying skin changes appreciated. Distal to this injury the right upper extremity is without evidence of trauma, pain, or neurovascular derangement. Pelvis is stable to AP compression, T and L-spine without tenderness or step-offs to palpation. Skin: Visualized skin without rashes, cyanosis. Neuro: Normal Gait, no obvious focal deficits or facial asymmetry. Speaks in full, clear sentences. Psych: Appropriate for situation. MDM: This is an 83-year-old female patient presenting for evaluation after a fall with head strike. My differential includes but is not limited to intracranial hemorrhage, skull fracture, spine fracture. Considered shoulder dislocation, fracture, contusion, ligamentous injury/sprain. Also considered medical etiologies for the patient's dizziness after her fall, including anemia, metabolic and electrolyte derangements, kidney injury, dehydration, liver injury. Reassuringly, the patient is not anticoagulated, is neuro intact, and hemodynamically appropriate. Will obtain basic laboratory studies to include CBC, CMP, INR, and will proceed with CT imaging of the head and C-spine to evaluate for injuries. I will also obtain an x-ray for evaluation of her shoulder. ED Course: I reviewed the patient's laboratory studies, which show no leukocytosis, stable anemia compared to priors, no thrombocytopenia. Chemistry panel is without significant electrolyte derangement, kidney function is at the patient's baseline, and she has no evidence of severe liver changes. Independently interpreted the patient's imaging studies. She has no evidence of intracranial hemorrhage, skull fracture, spinal fracture, and her x-ray of her shoulder shows no fracture or dislocation. I did provide the patient with a sling for comfort, and cautioned the patient against excessive use due to frozen shoulder risk. We discussed pendulums and wall walks for mobility and conservative pain management. At this time, the patient has had a full medical evaluation and is safe for discharge to home. They are hemodynamically stable, ambulatory, and tolerating PO. They are understanding of the follow-up plan and return precautions. They left our facility without incident. Velma Weldon MD Related Data Home Medications ?Medication ?Instructions ?Recorded ?Confirmed insulin glargine 100 unit/mL 25 unit subcut BID 11/28/15 06/14/24 subcutaneous solution (Lantus U-100 Insulin) insulin lispro 100 unit/mL 15 unit subcut TID 11/28/15 06/14/24 subcutaneous cartridge (Humalog U-100 Insulin) cholecalciferol (vitamin D3) 25 1,000 unit PO DAILY 01/30/18 06/14/24 mcg (1,000 unit) capsule (Vitamin D3) losartan 100 mg tablet 100 mg PO HS 01/30/18 06/14/24 vitamin B complex (B 1 ea PO DAILY 01/30/18 06/14/24 Complex-Vitamin B12 tablet) ascorbic acid (vitamin C) 1,000 mg 1,000 mg PO DAILY 04/14/20 06/14/24 tablet (Vitamin C) swlaliuzm-nar-yoki fumarate 18 1 tab-cap PO DAILY 04/14/20 06/14/24 mg-FA 600 mcg-vit K 40 mcg capsule (Multi For Her) pantoprazole 40 mg tablet,delayed 40 mg PO BID 06/10/20 06/14/24 release (Protonix) rosuvastatin 20 mg tablet 20 mg PO HS 06/10/20 06/14/24 amiodarone 200 mg tablet (Pacerone) 200 mg PO BID 11/05/20 06/14/24 clopidogrel 75 mg tablet (Plavix) 75 mg PO DAILY 11/05/20 06/14/24 ferrous gluconate 324 mg (37.5 mg 324 mg PO DAILY 11/05/20 06/14/24 iron) tablet amitriptyline 10 mg tablet 10 mg PO DIRECTED 07/22/21 06/14/24 glipizide 5 mg tablet 5 mg PO DAILY 07/22/21 06/14/24 metoprolol succinate 100 mg 200 mg PO QHS 07/22/21 06/14/24 tablet,extended release 24 hr metronidazole 0.75 % topical cream 1 applic topical BID 07/22/21 06/14/24 sucralfate 1 gram tablet 1 g PO AC & HS #120 tabs 07/23/21 06/14/24 blood sugar diagnostic (OneTouch 03/17/24 05/05/24 Ultra Test strips) famotidine 40 mg tablet 40 mg PO DAILY #90 tabs 04/28/24 06/14/24 gabapentin 100 mg capsule 100 mg PO TID 04/28/24 06/14/24 cyclobenzaprine 5 mg tablet 5 mg PO TID PRN #10 tabs 05/05/24 06/14/24 Previous Rx's ?Medication ?Instructions ?Recorded sucralfate 1 gram tablet 1 g PO AC & HS #120 tabs 07/23/21 famotidine 40 mg tablet 40 mg PO DAILY #90 tabs 04/28/24 cyclobenzaprine 5 mg tablet 5 mg PO TID PRN #10 tabs 05/05/24 Allergies Allergy/AdvReac Type Severity Reaction Status Date / Time codeine AdvReac Mild Nausea Verified 06/14/24 10:27 diltiazem AdvReac Mild Unknown Verified 06/14/24 10:27 epinephrine AdvReac Mild Unknown Verified 06/14/24 10:27 lisinopril AdvReac Mild cough Verified 06/14/24 10:27 pollen extracts AdvReac Topical Verified 06/14/24 10:27 Irritation General Stated Complaint: HeadInjury LACEY: 3 Course Vital Signs Vital signs: Vital Signs Temperature 36.4 C 06/14/24 10:22 Pulse 72 06/14/24 10:22 Respiratory Rate 16 06/14/24 10:22 Blood Pressure 181/75 H 06/14/24 10:22 Pulse Oximetry 96 06/14/24 10:22 Temperature 36.4 C 06/14/24 10:22 Temperature Source Temporal Artery Scan 06/14/24 10:22 Pulse 72 06/14/24 10:22 Respiratory Rate 16 06/14/24 10:22 Blood Pressure 181/75 H 06/14/24 10:22 Pulse Oximetry 96 06/14/24 10:22 Medical Decision Making Quality:SDOH Health Related Social Needs: No Data to Display PFSH All Active Problems (Updated 06/14/24 @ 12:13 by Velma Weldon MD) Acute pain of right shoulder due to trauma (Acute) Accidental fall from bed (Acute) Exposure to COVID-19 virus (Acute ~04/12/23) Acute on chronic diastolic CHF (congestive heart failure), NYHA class 2 (Chronic) Cervical disc herniation (Chronic) Diabetes mellitus (Chronic) S/P TAVR (transcatheter aortic valve replacement) (Acute) Anemia (Acute) Medical History Spinal stenosis Paroxysmal atrial fibrillation Atherosclerotic cardiovascular disease Aortic stenosis Acute cholecystitis BP (high blood pressure) Degenerative joint disease of right knee Closed fracture of left distal fibula (03/31/19) Surgical History H/O esophagogastroduodenoscopy (~2019) S/P colonoscopy (~2019) History of hysterectomy History of cataract surgery Social History Smoking/Tobacco Use Status: Never Smoking risk assessment performed?: Yes Alcohol Intake: never Drug use: Never Substance use type: does not use Housing: house What type of physical activity do you participate in: additional Details: PT to start Do you feel safe at home: Yes Do you feel safe in your relationship?: Yes
[2024-06-14 11:05] LABS: Abs Immature Grans 0.03 10^3/uL (0.0-0.06); Absolute Basophil Count 0.06 10^3/uL (0.0-0.2); Absolute Eosinophil Count 0.17 10^3/uL (0.0-0.7); Absolute Lymphocyte Count 1.33 10^3/uL (1.2-3.4); Absolute Monocyte Count 0.52 10^3/uL (0.1-0.8); Absolute Neutrophil Count 4.39 10^3/uL (1.2-6.7); Basophils % 0.9 %; Eosinophils % 2.6 %; HCT 31.9 % (36.0-46.0); HGB 9.2 g/dL (11.2-15.7); Immature Grans % 0.5 %; Lymphocytes % 20.5 %; MCH 23.2 pg (27.0-33.0); MCHC 28.8 % (32.0-36.0); MCV 81 fL (80-95); MPV 10.6 fL (8.0-11.0); Neutrophils % 67.5 %; Platelet Count 216 10^3/uL (130-400); RBC 3.96 10^6/uL (3.93-5.22); RDW 21.3 % (11.7-14.6); RDW-SD 61.1 fL
[2024-06-14 11:19] LABS: INR 1.1 (0.9-1.1); Prothrombin Time 10.9 sec (9.1-11.1)
[2024-06-14 11:25] LABS: ALT 27 U/L (14-59); AST 28 U/L (15-37); Albumin 3.5 g/dL (3.4-5.0); Alkaline Phosphatase 123 U/L (46-116); Anion Gap 11.3 mmol/L (3-11); BUN 21 mg/dL (7-18); Bilirubin, Total 1.03 mg/dL (0.2-1.0); CO2 24.7 mmol/L (21.0-32.0); CREATININE 1.1 mg/dL (0.55-1.02); Calcium 8.8 mg/dL (8.5-10.1); Chloride 108 mmol/L (98-107); Estimated GFR 49.86 (mL/min/1.73m2); Glucose 193 mg/dL (74-106); Magnesium 1.9 mg/dL (1.8-2.4); Sodium 144 mmol/L (136-145)
--- NOTE | 2024-06-14 11:37 | DI.VRAD_ITS ---
PROCEDURE INFORMATION: Exam: CT Head Without Contrast Exam date and time: 06/14/2024 11:12 AM Age: 83 years old Clinical indication: Other: Fall head strike TECHNIQUE: Imaging protocol: Computed tomography of the head without contrast. Radiation optimization: All CT scans at this facility use at least one of these dose optimization techniques: automated exposure control; mA and/or kV adjustment per patient size (includes targeted exams where dose is matched to clinical indication); or iterative reconstruction. COMPARISON: MR CERVICAL SPINE WO 06/14/2021 11:31 AM FINDINGS: Brain: There is mild ventricular and cortical sulcal prominence consistent with mild central and cortical atrophy. There is no acute hemorrhage mass or shift.There is minimal low attenuation involving the periventricular and subcortical white matter nonspecific but likely small vessel ischemic change/microangiopathy. There is no evidence of an acute cortical or major vascular territory infarct. No abnormal extra-axial collections are identified. Intracranial vascular calcification is noted. There is no definite hyperdense intravascular thrombus Cerebral ventricles: No significant ventricular enlargement/hydrocephalus Paranasal sinuses: There is minimal mucoperiosteal thickening involving posterior left ethmoid air cells. There is no other significant opacification or fluid level Mastoid air cells: No significant mastoid opacification Bones: No acute calvarial abnormality Soft tissues: Subcutaneous soft tissues are unremarkable IMPRESSION: No acute findings. PROCEDURE INFORMATION: Exam: CT Cervical Spine Without Contrast Exam date and time: 06/14/2024 11:12 AM Age: 83 years old Clinical indication: Other: Fall head strike TECHNIQUE: Imaging protocol: Computed tomography of the cervical spine without contrast. Radiation optimization: All CT scans at this facility use at least one of these dose optimization techniques: automated exposure control; mA and/or kV adjustment per patient size (includes targeted exams where dose is matched to clinical indication); or iterative reconstruction. COMPARISON: MR CERVICAL SPINE WO 06/14/2021 11:31 AM FINDINGS: Bones: There is straightening, mild reversal of the cervical lordosis which may be positional or due to spasm. The bony structures are mildly osteopenic. There is no evidence of an acute fracture in the cervical spine. There is no decrease of vertebral body height. There is no acute or destructive bony abnormality. There is multilevel disc space narrowing. There are disc osteophyte complexes, spondylitic changes of the endplates, uncovertebral and facet arthropathy. Degenerative changes lead to narrowing of the canal/stenosis at the level of the disc spaces. This is particularly noted C3-C4 through C6-C7 similar to the patient's prior MR exam. Degenerative changes lead to foraminal narrowing which appears most prominent at C5-C6, C6-C7. Lungs: No significant airspace consolidation is identified at the lung apices Thyroid: The thyroid gland is heterogeneous, the left lobe is larger than the right. Findings likely represent multinodular goiter. Vasculature: There is prominent vascular calcification of the carotid bifurcations and at the visualized aortic arch. Soft tissues: There is no new soft tissue mass in the neck. IMPRESSION: 1. No acute fracture. 2. Cervical spondylosis, degenerative disc disease also seen on the patient's prior MRI from 2020. Dictated and Authenticated by: Bethany Marques MD. Ordering:JULIA Dhillon MD
[2024-06-14 11:48] LABS: Anisocytosis 2+; Diff Comment RBC Morph Reviewed
--- NOTE | 2024-06-14 11:58 | DI.VRAD_ITS ---
PROCEDURE INFORMATION: Exam: XR Right Shoulder Exam date and time: 06/14/2024 11:20 AM Age: 83 years old Clinical indication: Other: Fall onto right shoulder TECHNIQUE: Imaging protocol: Radiologic exam of the right shoulder. Views: 2 or more views. COMPARISON: CT HEAD CERVICAL SPINE WO 06/14/2024 11:12 AM FINDINGS: Bones/joints: Degenerative changes in the acromioclavicular joint and glenohumeral joint. There is no evidence of acute fracture.There is no evidence of malalignment or dislocation. Soft tissues: Normal. IMPRESSION: There is no evidence of acute fracture.There is no evidence of malalignment or dislocation. Dictated and Authenticated by: Evi Rodrigues MD. Ordering:JULIA Dhillon MD
== END 2024-06-14 12:39 | disposition home or self-care (01) ==
PROVIDERS: Emergency Provider Emergency Medicine; PCP Family Medicine
DX: W06.XXXA Fall from bed, initial encounter; S00.81XA Abrasion of other part of head, initial encounter; M25.511 Pain in right shoulder; R42 Dizziness and giddiness
CPT/HCPCS: 80053; 99283; 70450; 72125; 73030; 83735; 85025; 85610

== ENCOUNTER 2024-06-30 03:30 | Outpatient (CLI) | payer MEDICARE, SELFPAY ==
--- NOTE | 2024-06-30 13:22 | TELEFU_ITS ---
Date of service: 06/30/24 Time of Service: 11:30 Nutrition Note NOTE: Shannan comes in for referred nutrition visit for diabetes education/mgt. Shannan is 83yo female managing type II diabetes since 2015. Also in her PMH: esophagitis (hemorrhage apr 2024), Afib, diastolic heart failure, insomnia, low back pain, obesity. Diabetes meds include 5mg glipizide daily, Humalog insulin 15u TID at meals, and 25u Lantus BID. She was also just recently prescribed pioglitazone with a follow up soon to check on effect/progress. Last A1C was 11.3% She usually check fasting glucose, and will check again if feeling glucose is significantly off. She states no history of low's - tends to run very high and relates even with the current insulin on board she was running sometimes into the 400's in the morning. She does share that the additional TZD med has dropped it significantly and was 108 this morning. She can get hypo symptoms with glucose in this range but knows that this is due to adapting to her chronic hyperglycemia for some time. She relates glucose of 108 this morning (around 430AM). She had 2pcs whole grain toast with butter and coffee with a splash of milk and her glucose was 210 around 9/9:30. I related that on average with her weight, 1g carbohydrate will raise glucose ~3points - if she at 2 pcs bread for about 30grams it will raise her glucose around 30 points as was expressed with her second reading. She does confirm that she administers her mealtime insulin before her meals. She shops and cooks her own meals and labels herself as a grazer. From diet history relayed from patient, she is assessed to have low protein intake, high added sugar intake. Seems to do pretty well with fiber - chooses seedy whole grain bread, eats salads regularly and loves vegetables (however she does prefer frozen veggies with added sauces and flavors which will contain sugars and are usually high in sodium). We did discuss the following topics to try to help with getting her glucose more consistently closer to target (would recommend slightly relaxed target of A1C <8.5%.): - keep added sugar at 30g or less for the day - we reviewed how to read labels for this and how 1tsp added sugar is 4g. -aim for a source of protein at each meal and snack -avoid grazing and try to plan for 3 meals and 2-3 snacks per day. -Suggested 2 carb servings per meal and 1 at snacks and reviewed handout for servings of types of foods. Other suggestions: -after assessing the impact of her new medication, would consider GLP1-RA to help with weight and glycemic control -As patient would benefit from higher frequency of monitoring and is eligible, would recommend continuous glucose monitor WITH A SOFTWARE IMPLEMENTATION PROJECT MANAGER (pt does not know how to use her phone that well). I told her I could help put it on her arm and teach how to use/look at her reports and share with provider. I plan to call in about 2 weeks to check in and get updates on her glucose ranges. Time Spent in Nutritional Counseling and Treatment: 40 minutes
== END 2024-06-30 03:31 | disposition home or self-care (01) ==
LOC: DS 03:30
PROVIDERS: PCP Family Medicine; Visit Provider Dietitian, Registered
DX: E11.9 Type 2 diabetes mellitus without complications (principal)
CPT/HCPCS: 00123; 97802

== ENCOUNTER 2024-09-22 21:41 | Outpatient (REF) | payer MEDICARE, SELFPAY ==
[2024-09-22 22:09] LABS: COMMENT (LAB VIEW ONLY) 102.55 mg/dL
[2024-09-22 22:21] LABS: Microalb ug/mg Crea 128.6 ug/mg Cr
== END 2024-09-22 21:42 | disposition home or self-care (01) ==
LOC: NCHCN 21:41
PROVIDERS: PCP Family Medicine; Visit Provider Family Medicine
DX: E11.9 Type 2 diabetes mellitus without complications (principal); M48.061 Spinal stenosis, lumbar region without neurogenic claudication
CPT/HCPCS: 82043; 82570; 87086

== ENCOUNTER 2024-09-28 20:30 | Emergency (ER) | payer MEDICARE, SELFPAY ==
[2024-09-28] VITALS (12 sets, daily range): BP systolic 164–234; BP diastolic 70–100; PULSE 86–99; RESP 14–23; TEMP 37.7; O2SAT 89–97
--- NOTE | 2024-09-28 20:45 | RT.EKG_ITS ---
APPROVED REPORT Exam: Resting ECG Reason for Exam: N/V/D Patient Location: E HR:99 bpm ECG Measurements Heart Rate 99 AXIS MO 164 P 44 QRSd 152 QRS -71 QT 412 T 91 QTc 528 Conclusion Sinus rhythm 99 rbbb No significant change from prior
--- NOTE | 2024-09-28 20:45 | DI.RAD_ITS ---
Exam(s) XR PORTABLE CHEST AP EXAM: XR PORTABLE CHEST AP CLINICAL HISTORY: cough TECHNIQUE: 2D digital imaging was performed. COMPARISON: CR,XR XR CHEST 2V PA LATERAL from 04/12/[address] CHEST PE ABD PELVIS W from 04/12/2023 CR XR LUMBAR SPINE COMPLETE from 12/25/2023 FINDINGS: LUNGS: Clear. No pleural abnormality seen. HEART: Mildly enlarged, unchanged. TAVR. Mitral annular calcification. AORTA: Normal diameter. BONES: Unremarkable for age. Soft tissues: Elevation right diaphragm, stable.. IMPRESSION: No acute findings. DATA REPOSITORY: RADIATION DOSE DELIVERED:
--- NOTE | 2024-09-28 21:08 | ED.GENADUL_ITS ---
Discharge Plan Disposition Patient Disposition: Home Condition: Fair Discharge Details Clinical Impression: Influenza A, Nausea, vomiting and diarrhea Primary Care Provider: Regis Muller ED Provider: Marie Guardado Home Meds and New Rx's Prescriptions: New ondansetron 4 mg tablet,disintegrating 4 mg PO Q6H PRN (Reason: nausea and vomiting) Qty: 30 0RF oseltamivir [Tamiflu] 75 mg capsule 75 mg PO BID 5 Days Qty: 10 0RF No Action ferrous gluconate 324 mg (37.5 mg iron) tablet 324 mg PO DAILY amiodarone [Pacerone] 200 mg tablet 200 mg PO BID insulin glargine [Lantus U-100 Insulin] 100 UNITS/ML solution 25 unit Sub-Q BID Humalog U-100 Insulin 100 UNIT/ML cartridge 15 unit Sub-Q TID ascorbic acid (vitamin C) [Vitamin C] 1,000 mg Tablet 1,000 mg PO DAILY Multi For Her 18 mg iron-600 mcg-40 mcg Capsule 1 tab-cap PO DAILY pantoprazole [Protonix] 40 mg Tablet,Delayed Release (Dr/Ec) 40 mg PO BID rosuvastatin 20 mg Tablet 20 mg PO HS clopidogrel [Plavix] 75 mg tablet 75 mg PO DAILY metoprolol succinate 100 mg tablet extended release 24 hr 200 mg PO QHS amitriptyline 10 mg tablet 10 mg PO DIRECTED Patient Comments: TAKE ONE-HALF TO TWO TABLETS BY MOUTH AT BEDTIME Rx Instructions: 1/2 -2 tablets every night glipizide 5 mg tablet 5 mg PO DAILY Patient Comments: TAKE ONE TABLET BY MOUTH EVERY DAY sucralfate 1 gram Tablet 1 g PO AC & HS Qty: 120 0RF gabapentin 100 mg capsule 100 mg PO TID Patient Comments: TAKE ONE CAPSULE BY MOUTH THREE TIMES A DAY famotidine 40 mg tablet 40 mg PO DAILY Qty: 90 0RF vitamin B complex [B Complex-Vitamin B12] 1 EACH tablet 1 ea PO DAILY cholecalciferol (vitamin D3) [Vitamin D3] 1,000 UNIT capsule 1,000 unit PO DAILY losartan 100 MG tablet 100 mg PO HS (DME) OneTouch Ultra Test Strip MISCELLANEOUS Patient Comments: TEST THREE TIMES A DAY cyclobenzaprine 5 mg tablet 5 mg PO TID PRNQty: 10 0RF pioglitazone 15 mg tablet 15 mg PO DAILY Patient Comments: TAKE ONE TABLET BY MOUTH EVERY MORNING Discharge Instructions Instructions: Flu, Adult ED Additional Instructions: Your flu test is positive today, you have been started on Tamiflu. Your first dose was given in the emergency department and the remainder was sent to the pharmacy. You will continue to feel bad for several more days. Given your medical comorbidities your symptoms may worsen, particularly cough, shortness of breath or difficulty breathing. And if you develop the symptoms you should return to the emergency department for reevaluation Right now you are not requiring oxygen or IV fluids for dehydration You were given Zofran to help with your vomiting. Please continue this as needed. Drink lots of fluids and advance your diet slowly as tolerated HPI General Date/Time Provider Initiated Documentation: 09/28/24 20:51 . Limitations to Documentation: no limitations . Information obtained by: patient . HPI Narrative: 84-year-old female with past medical history of CHF (last EF 70%) diabetes, TAVR, anemia presents for evaluation of vomiting diarrhea and bodyaches. Subjective fever at home. Onset of symptoms earlier today with persistence throughout the day. She reports her stool is dark but she is on iron. She reports frequent episodes of vomiting and unable to keep anything down. She did not receive an influenza vaccine today. Denies any pain in her chest shortness of breath. She does have a mild cough. She states that she has some cramping in her abdomen when she is vomiting, but otherwise denies any abdominal pain or dysuria Related Data Home Medications ?Medication ?Instructions ?Recorded ?Confirmed insulin glargine 100 unit/mL 25 unit subcut BID 11/28/15 09/28/24 subcutaneous solution (Lantus U-100 Insulin) insulin lispro 100 unit/mL 15 unit subcut TID 11/28/15 09/28/24 subcutaneous cartridge (Humalog U-100 Insulin) cholecalciferol (vitamin D3) 25 1,000 unit PO DAILY 01/30/18 09/28/24 mcg (1,000 unit) capsule (Vitamin D3) losartan 100 mg tablet 100 mg PO HS 01/30/18 09/28/24 vitamin B complex (B 1 ea PO DAILY 01/30/18 09/28/24 Complex-Vitamin B12 tablet) ascorbic acid (vitamin C) 1,000 mg 1,000 mg PO DAILY 04/14/20 09/28/24 tablet (Vitamin C) [id number] fumarate 18 1 tab-cap PO DAILY 04/14/20 09/28/24 mg-FA 600 mcg-vit K 40 mcg capsule (Multi For Her) pantoprazole 40 mg tablet,delayed 40 mg PO BID 06/10/20 09/28/24 release (Protonix) rosuvastatin 20 mg tablet 20 mg PO HS 06/10/20 09/28/24 amiodarone 200 mg tablet (Pacerone) 200 mg PO BID 11/05/20 09/28/24 clopidogrel 75 mg tablet (Plavix) 75 mg PO DAILY 11/05/20 09/28/24 ferrous gluconate 324 mg (37.5 mg 324 mg PO DAILY 11/05/20 09/28/24 iron) tablet amitriptyline 10 mg tablet 10 mg PO DIRECTED 07/22/21 09/28/24 glipizide 5 mg tablet 5 mg PO DAILY 07/22/21 09/28/24 metoprolol succinate 100 mg 200 mg PO QHS 07/22/21 09/28/24 tablet,extended release 24 hr sucralfate 1 gram tablet 1 g PO AC & HS #120 tabs 07/23/21 09/28/24 blood sugar diagnostic ([facility] 03/17/24 09/28/24 Ultra Test strips) famotidine 40 mg tablet 40 mg PO DAILY #90 tabs 04/28/24 09/28/24 gabapentin 100 mg capsule 100 mg PO TID 04/28/24 09/28/24 cyclobenzaprine 5 mg tablet 5 mg PO TID PRN #10 tabs 05/05/24 09/28/24 ondansetron 4 mg disintegrating 4 mg PO Q6H PRN nausea and 09/28/24 tablet vomiting #30 tabs oseltamivir 75 mg capsule (Tamiflu) 75 mg PO BID 5 days #10 caps 09/28/24 pioglitazone 15 mg tablet 15 mg PO DAILY 09/28/24 09/28/24 Previous Rx's ?Medication ?Instructions ?Recorded sucralfate 1 gram tablet 1 g PO AC & HS #120 tabs 07/23/21 famotidine 40 mg tablet 40 mg PO DAILY #90 tabs 04/28/24 cyclobenzaprine 5 mg tablet 5 mg PO TID PRN #10 tabs 05/05/24 ondansetron 4 mg disintegrating 4 mg PO Q6H PRN nausea and 09/28/24 tablet vomiting #30 tabs oseltamivir 75 mg capsule (Tamiflu) 75 mg PO BID 5 days #10 caps 09/28/24 Allergies Allergy/AdvReac Type Severity Reaction Status Date / Time codeine AdvReac Mild Nausea Verified 09/28/24 21:53 diltiazem AdvReac Mild Unknown Verified 09/28/24 21:53 epinephrine AdvReac Mild Unknown Verified 09/28/24 21:53 lisinopril AdvReac Mild cough Verified 09/28/24 21:53 pollen extracts AdvReac Topical Verified 09/28/24 21:53 Irritation General Stated Complaint: Nausea/Vomit/Diar LACEY: 3 Exam Narrative Exam Narrative: Review of Systems: All systems reviewed & are unremarkable except as noted in HPI and below Well-developed, ill-appearing NCAT RRR no murmur Unlabored respiratory effort no hypoxia, normal work of breathing Nondistended abdomen soft nontender Extremities w/o edema Course Vital Signs Vital signs: Vital Signs Temperature 37.7 C H 09/28/24 20:39 Pulse 97 H 09/28/24 20:39 Respiratory Rate 18 09/28/24 20:39 Blood Pressure 234/70 H 09/28/24 20:39 Pulse Oximetry 94 09/28/24 20:39 Temperature 37.7 C H 09/28/24 20:44 Temperature Source Oral 09/28/24 20:44 Pulse 97 H 09/28/24 20:44 Respiratory Rate 18 09/28/24 20:44 Blood Pressure 234/70 H 09/28/24 20:44 Blood Pressure Position Sitting 09/28/24 20:44 Pulse Oximetry 94 09/28/24 20:44 Oxygen Delivery Method Room Air 09/28/24 20:44 Oxygen Flow Rate 0 09/28/24 20:44 Pain Level 0 09/28/24 20:44 Medical Decision Making Emergent evaluation of vomiting diarrhea and bodyaches. Initial differential includes viral illness, electrolyte derangement, DKA. Patient is noted to be hyperglycemic. Temperature is slightly elevated. She is not vaccinated for flu which I have a high suspicion of given its incredible community prevalence at this time. EKG does not reveal any acute ischemic changes. Plan for lab work antiemetic viral testing. Influenza A test positive. On reevaluation, the patient looks better and is drinking without any vomiting or abdominal pain. Her blood work was reviewed, stable anemia, no electrolyte derangement, mild elevation of LFTs but she has had this previously. Her her chest x-ray does not reveal a focal consolidation and she is not requiring any supplemental oxygen. Though she has multiple comorbidities including her age and unvaccinated status, at this time there is no admittable diagnosis. I have started her on Tamiflu and will discharge her with this prescription as well as a prescription for Zofran. Advised a low threshold for returning to the emergency department Quality:SDOH Health Related Social Needs: No Data to Display [facility] All Active Problems (Updated 09/28/24 @ 22:12 by Marie Guardado MD) Nausea, vomiting and diarrhea (Acute) Influenza A (Acute) Exposure to COVID-19 virus (Acute ~04/12/23) Acute on chronic diastolic CHF (congestive heart failure), NYHA class 2 (Chronic) Cervical disc herniation (Chronic) Diabetes mellitus (Chronic) S/P TAVR (transcatheter aortic valve replacement) (Acute) Anemia (Acute) Medical History Spinal stenosis Paroxysmal atrial fibrillation Atherosclerotic cardiovascular disease Aortic stenosis Acute cholecystitis BP (high blood pressure) Degenerative joint disease of right knee Closed fracture of left distal fibula (03/31/19) Surgical History H/O esophagogastroduodenoscopy (~2019) S/P colonoscopy (~2019) History of hysterectomy History of cataract surgery Social History Smoking/Tobacco Use Status: Never Smoking risk assessment performed?: Yes Alcohol Intake: never Drug use: Never Substance use type: does not use Housing: house What type of physical activity do you participate in: additional Details: PT to start Do you feel safe at home: Yes Do you feel safe in your relationship?: Yes
[2024-09-28 21:16] LABS: Abs Immature Grans 0.03 10^3/uL (0.0-0.06); Absolute Basophil Count 0.04 10^3/uL (0.0-0.2); Absolute Eosinophil Count 0.05 10^3/uL (0.0-0.7); Absolute Lymphocyte Count 0.26 10^3/uL (1.2-3.4); Absolute Monocyte Count 0.47 10^3/uL (0.1-0.8); Absolute Neutrophil Count 5.91 10^3/uL (1.2-6.7); Basophils % 0.6 %; Eosinophils % 0.7 %; HCT 33.3 % (36.0-46.0); HGB 10.3 g/dL (11.2-15.7); Immature Grans % 0.4 %; Lymphocytes % 3.8 %; MCH 26.3 pg (27.0-33.0); MCHC 30.9 % (32.0-36.0); MCV 85 fL (80-95); MPV 10.3 fL (8.0-11.0); Neutrophils % 87.5 %; Platelet Count 160 10^3/uL (130-400); RBC 3.92 10^6/uL (3.93-5.22); RDW 15.6 % (11.7-14.6); RDW-SD 47.9 fL; WBC 6.76 10^3/uL (4.4-10.8)
[2024-09-28 21:32] LABS: ALT 67 U/L (14-59); AST 82 U/L (15-37); Albumin 3.9 g/dL (3.4-5.0); Alkaline Phosphatase 149 U/L (46-116); Anion Gap 8.8 mmol/L (3-11); BUN 14 mg/dL (7-18); Bilirubin, Total 1.32 mg/dL (0.2-1.0); CO2 28.2 mmol/L (21.0-32.0); CREATININE 1.1 mg/dL (0.55-1.02); Calcium 9.2 mg/dL (8.5-10.1); Chloride 104 mmol/L (98-107); Estimated GFR 49.55 (mL/min/1.73m2); Glucose 224 mg/dL (74-106); Potassium 3.8 mmol/L (3.5-5.1); Sodium 141 mmol/L (136-145); Total Protein 7.5 g/dL (6.4-8.2)
[2024-09-28 21:39] LABS: NT-proBNP 635 pg/mL (<300); Troponin I 30 ng/L (<or=51)
[2024-09-28] MEDS: Ondansetron 4 MG/2 ML VIAL IVP (21:48)
[2024-09-28] MEDS: ACETAMINOPHEN 1,000 MG/100 ML BAG 400 MG IVPB (21:49)
[2024-09-28 21:54] LABS: Bilirubin Negative (Negative); Blood Trace-lysed (Negative); Clarity Clear (Clear); Glucose 100 mg/dL (Negative); Ketones Trace mg/dL (Negative); Leukocyte Esterase Negative (Negative); Nitrite Negative (Negative); Specific Gravity 1.025 (1.005-1.025); Urobilinogen 0.2 mg/dL (Up to 0.2)
[2024-09-28 22:01] LABS: Bacteria Negative HPF (Negative); C & S Indicated? No; Crystals Negative HPF (Negative); Epithelial Cells Negative HPF (Negative); Mucus Negative (Negative); RBC 0-2 HPF (0-2); WBC Negative HPF (0-5)
[2024-09-28] MEDS: Oseltamivir 75 MG CAP PO (22:21)
--- NOTE | 2024-09-28 22:29 | NUR.NOTE ---
Pt has tolerated 16 ounces of PO fluids with no complaints, FPJ
--- NOTE | 2024-09-28 23:13 | DI.VRAD_ITS ---
PROCEDURE INFORMATION: Exam: XR Chest Exam date and time: 09/28/2024 9:18 PM Age: 84 years old Clinical indication: Cough TECHNIQUE: Imaging protocol: Radiologic exam of the chest. Views: 1 view. COMPARISON: CT CHEST PE ABD PELVIS W 04/12/2023 9:30 PM FINDINGS: Lungs: Lungs are clear. Pleural spaces: Unremarkable. No pleural effusion. No pneumothorax. Heart/Mediastinum: Unremarkable. No cardiomegaly. Diaphragm: Elevation of the right hemidiaphragm. Bones/joints: Unremarkable. IMPRESSION: No acute findings. Dictated and Authenticated by: Michael Keith MD. Orderin Geo Glez MD
== END 2024-09-28 22:42 | disposition home or self-care (01) ==
PROVIDERS: Emergency Provider Emergency Medicine; PCP Family Medicine
DX: J10.1 Influenza due to other identified influenza virus with other respiratory manifestations (principal); R11.2 Nausea with vomiting, unspecified; R19.7 Diarrhea, unspecified; E11.9 Type 2 diabetes mellitus without complications; Z86.79 Personal history of other diseases of the circulatory system
CPT/HCPCS: 36416; 80053; 82962; 93005; 96365; 96375; 99284; 71045; 81003; 81015; 83880; 84484; 85025; 93010; J0131; J2405

== ENCOUNTER 2024-10-21 15:11 | Outpatient (REF) | payer MEDICARE, SELFPAY | END 2024-10-21 15:12 | disposition home or self-care (01) | LOC: NCHCN 15:11 | PROVIDERS: PCP Family Medicine; Visit Provider Family Medicine | DX: E11.9 Type 2 diabetes mellitus without complications (principal) | CPT/HCPCS: 87077; 87086; 87186 ==

== ENCOUNTER 2024-12-09 10:24 | Outpatient (CLI) | payer MEDICARE, SELFPAY ==
--- NOTE | 2024-12-09 06:00 | DI.RAD_ITS ---
Exam(s) XR PAIN CLINIC LUMBAR SP 2V EXAM: XR PAIN CLINIC LUMBAR SP 2V CLINICAL HISTORY: Dx: Lumbar Spondylosis. TECHNIQUE: Fluoroscopy was provided for the referring physician for guidance with performing pain cl inic injection procedure. COMPARISON: No exams were available for comparison FINDINGS: Please see procedure note for details. Fluoro time: 29.2 seconds RADIATION DOSE DELIVERED: wen Robert=11.94 mGy
--- NOTE | 2024-12-09 10:42 | PDOC.PAIN ---
Date of service: 12/09/24 Time of Service: 11:30 Pain Managment Procedure Note Procedure Note Procedure Note: Lumbar Medial Branch Block ? Location: Bilateral Medial Branches ? Levels: L3,4,5? (L4-5, L5-S1 FACET) ? Pre-procedure Diagnosis: M47.817 Spondylosis without myelopathy or radiculopathy, lumbosacral region M47.816 Spondylosis without myelopathy or radiculopathy, lumbar region ? Post-procedure Diagnosis:? The same as above ? Sedation: NONE? Estimated blood loss:? less than 2 cc ? Surgeon:? Ugo Mallory MD COMMENT: PRE PROCEDURE PAIN SCORE: 8/10 ? Procedure Detail:? The procedure and potential risks were explained to the patient and informed written consent was obtained. The patient was escorted to the procedure room and placed in the prone position. Pillows were utilized for proper positioning and comfort.? Time out was performed in procedure room with nursing staff confirming the patient's identity, procedure to be performed, allergies, and any blood thinning or anti-platelet medications. The patient's lower back was prepped with chlorhexidine and draped in a sterile fashion. Sterile technique was maintained throughout the procedure.? Sterile gloves were used, a face mask was worn, and new single dose vials of all medications were used with the top being swabbed with alcohol and given time to dry prior to withdrawal of medication.? A left AND right-sided oblique fluoroscopic view was obtained, with visualization of the: ?RIGHT and LEFT L3,4 and DORSAL RAMUS L5 AT SACRAL ALA ? junction of the transverse process and superior articular process. Lidocaine 1% was used to anesthetize the skin. A 22-gauge Quincke needle was advanced along the superior margin of the transverse process and lateral to the articular process.? It was directed inferiorly and medially so that the tip struck the junction of the base of the transverse process and the superior articular process. The needle was then walked over the superior aspect of the transverse process and advanced slightly along the course of the L3,4,5 medial branch nerves. Proper placement was verified in A/P, oblique and lateral views under fluoroscopy. At this location, following negative aspiration, 0.5cc 0.5% bupivacaine was injected.? The patient tolerated the procedure well and was transported to the recovery area for observation and discharge instructions. Permanent images saved and recorded. Follow-up:? The patient will return in 2 weeks for confirmatory LMBBs if they? meet the criteria from today's procedure lasting for at least 2 hours.? COMMENT:Pain went from 8/10 to 0/10. Before the patient left patient had 100% pain relief. Coding Conscious Sedation used for procedure: No CPT Codes: LMBB (includes Fluoro) Lumbar/Sacral, single lvl *BILATERAL* - [id number] ([id number]~G5) LMBB (includes Fluoro) Lumbar/Sacral, 2nd lvl - [id number] ([id number] ~G) LT - LEFT SIDE, RT - RIGHT SIDE Additional Codes: Date of Service (33255) Date of service: 12/09/24
[2024-12-09 10:46] VITALS: BP 182/96; PULSE 73; RESP 18; TEMP 36.4; O2SAT 98
[2024-12-09 11:11] VITALS: PULSE 92; O2SAT 91
[2024-12-09 11:20] VITALS: PULSE 79; O2SAT 97
[2024-12-09] MEDS: Bupivacaine 0.5% Pres-Free 10 ML VIAL IJ (11:34)
[2024-12-09] MEDS: Nerve Block Tray 1 EACH MC (11:34)
== END 2024-12-09 10:25 | disposition home or self-care (01) ==
LOC: PC 10:25
PROVIDERS: PCP Family Medicine; Visit Provider Anesthesiology Pain Medicine
DX: M47.817 Spondylosis without myelopathy or radiculopathy, lumbosacral region (principal); M54.50 Low back pain, unspecified
CPT/HCPCS: 64493; 64494; 72100; J0665

== ENCOUNTER 2025-04-01 13:21 | Outpatient (REF) | payer MEDICARE, SELFPAY ==
[2025-04-01 15:08] LABS: Abs Immature Grans 0.02 10^3/uL (0.0-0.06); HCT 28.5 % (36.0-46.0); HGB 8.8 g/dL (11.2-15.7); Immature Grans % 0.3 %; MCH 24.9 pg (27.0-33.0); MCHC 30.9 % (32.0-36.0); MCV 81 fL (80-95); RBC 3.54 10^6/uL (3.93-5.22); RDW 15.9 % (11.7-14.6); RDW-SD 46.6 fL; WBC 7.12 10^3/uL (4.4-10.8)
[2025-04-01 15:44] LABS: Hypochromasia 1+; Microcytosis 1+; Platelet Count 159 10^3/uL (130-400)
[2025-04-01 15:55] LABS: Hemoglobin A1C 9.2 % (<5.7)
[2025-04-01 15:57] LABS: ALT 42 U/L (14-59); AST 30 U/L (15-37); Albumin 3.6 g/dL (3.4-5.0); Alkaline Phosphatase 122 U/L (46-116); Anion Gap 11.4 mmol/L (3-11); BUN 16 mg/dL (7-18); Bilirubin, Total 1.0 mg/dL (0.2-1.0); CO2 24.6 mmol/L (21.0-32.0); Calcium 8.9 mg/dL (8.5-10.1); Chloride 107 mmol/L (98-107); Estimated GFR 72.61 (mL/min/1.73m2); Glucose 161 mg/dL (74-106); Potassium 3.5 mmol/L (3.5-5.1); Sodium 143 mmol/L (136-145); TSH 2.67 uIU/mL (0.36-3.74); Total Protein 6.5 g/dL (6.4-8.2)
[2025-04-01 22:07] LABS: T3,Free 3.2 pg/mL (2.8-5.3)
== END 2025-04-01 13:22 | disposition home or self-care (01) ==
LOC: NCHCN 13:21
PROVIDERS: PCP Family Medicine; Visit Provider Family Medicine
DX: I50.30 Unspecified diastolic (congestive) heart failure (principal)
CPT/HCPCS: 80053; 83036; 84439; 84443; 84481; 85025

== ENCOUNTER 2025-04-16 21:53 | Inpatient (IN) | payer MEDICARE, SELFPAY ==
[2025-04-16] VITALS (42 sets, daily range): BP systolic 123–252; BP diastolic 37–142; PULSE 85–128; RESP 19–45; O2SAT 85–100
--- NOTE | 2025-04-16 22:00 | RT.EKG_ITS ---
APPROVED REPORT Exam: Resting ECG Reason for Exam: SOB Patient Location: E HR:116 bpm ECG Measurements Heart Rate 116 AXIS ME [id number] P [id number] QRSd 156 QRS -69 QT 363 T 111 QTc 505 Conclusion indeterminate rhythm Right bundle branch block...QRSd>120, terminal axis(90,270) LVH with IVCD and secondary repol abnrm...multi-criteria, wQRSd, abnr ST-T ST elevation secondary to LVH...Multiple VCG criteria no ST segment or T wave abnormalities to suggest occlusive [place]
--- NOTE | 2025-04-16 22:00 | DI.RAD_ITS ---
Exam(s) XR PORTABLE CHEST AP EXAM: XR PORTABLE CHEST AP CLINICAL HISTORY: SOB. TECHNIQUE: 2D digital imaging was performed. COMPARISON: CR,XR XR PORTABLE CHEST AP from 09/28/2024 FINDINGS: Single AP portable view. Again noted is cardiomegaly and aortic valve TAVR. Mediastinum is not widened There is a bilateral interstitial pattern consistent with interstitial pulmonary edema. No obvious pleural effusions. Mildly elevated right hemidiaphragm is unchanged. IMPRESSION: Pulmonary edema. No large pleural effusions. Cardiomegaly. Aortic valve TAVR. DATA REPOSITORY: RADIATION DOSE DELIVERED:
[2025-04-16] MEDS: Albuterol/Ipratropium 3 ML UPD VIAL (22:07)
[2025-04-16 22:22] LABS: BE (Venous) -4 mmol/L (-2-3); HCO3 (Venous) 22 mmol/L (23-28); O2 Sat (Venous) 78 %; TCO2 (Venous) 21 mmol/L (24-29); pCO2 (Venous) 41 mmHg (41-51); pO2 (Venous) 47 mmHg
[2025-04-16 22:23] LABS: Abs Immature Grans 0.05 10^3/uL (0.0-0.06); HCT 29.3 % (36.0-46.0); HGB 8.6 g/dL (11.2-15.7); Immature Grans % 0.4 %; MCH 24.0 pg (27.0-33.0); MCHC 29.4 % (32.0-36.0); MCV 82 fL (80-95); MPV 10.3 fL (8.0-11.0); Platelet Count 285 10^3/uL (130-400); RBC 3.58 10^6/uL (3.93-5.22); RDW 16.8 % (11.7-14.6); RDW-SD 49.9 fL; WBC 11.23 10^3/uL (4.4-10.8)
[2025-04-16] MEDS: methylPREDNISolone SUCC 125 MG VIAL IVP (22:30)
[2025-04-16] MEDS: cefTRIAXone 1 GM/50 ML BAG IVPB (22:30)
--- NOTE | 2025-04-16 22:30 | RT.EKG_ITS ---
APPROVED REPORT Exam: Resting ECG Reason for Exam: Repeat - SOB Patient Location: E HR:113 bpm ECG Measurements Heart Rate 113 AXIS NE 117 P 69 QRSd 158 QRS -67 QT 413 T 94 QTc 566 Conclusion Sinus tachycardia...rate> 99 Right bundle branch block...QRSd>120, terminal axis(90,270) LVH with IVCD and secondary repol abnrm...multi-criteria, wQRSd, abnr ST-T no ST segment or T wave abnormalities to suggest occlusive [place]
[2025-04-16] MEDS: Metoprolol 5 MG/5 ML VIAL 10 MG IVP (22:33)
--- NOTE | 2025-04-16 22:34 | DI.VRAD_ITS ---
PROCEDURE INFORMATION: Exam: XR Chest Exam date and time: 04/16/2025 10:20 PM Age: 84 years old Clinical indication: Shortness of breath TECHNIQUE: Imaging protocol: Radiologic exam of the chest. Views: 1 view. COMPARISON: CR XR PORTABLE CHEST AP 09/28/2024 9:18 PM FINDINGS: Lungs: Bilateral pulmonary opacities/infiltrates with differential considerations including pulmonary edema and less likely bilateral pneumonia. Pleural spaces: Unremarkable. No pleural effusion. No pneumothorax. Heart/Mediastinum: Mild cardiomegaly. Bones/joints: Unremarkable. IMPRESSION: Pulmonary edema versus bilateral pneumonia. Dictated and Authenticated by: Emmanuel Santana MD. Orderin Lamonte Delgado MD
[2025-04-16] MEDS: Furosemide 40 MG/4 ML VIAL IVP (22:36)
[2025-04-16] MEDS: ALBUTEROL 15 MG, SODIUM CHLORIDE 0.9% FOR INH. 3 ML UPD (22:44)
[2025-04-16 22:47] LABS: ALT 32 U/L (14-59); AST 43 U/L (15-37); Albumin 3.6 g/dL (3.4-5.0); Alkaline Phosphatase 146 U/L (46-116); Anion Gap 14.2 mmol/L (3-11); BUN 16 mg/dL (7-18); Bilirubin, Total 1.2 mg/dL (0.2-1.0); CO2 22.8 mmol/L (21.0-32.0); Calcium 8.9 mg/dL (8.5-10.1); Chloride 105 mmol/L (98-107); Estimated GFR 63.04 (mL/min/1.73m2); Glucose 238 mg/dL (74-106); Magnesium 2.1 mg/dL (1.8-2.4); NT-proBNP 597 pg/mL (<300); Potassium 4.1 mmol/L (3.5-5.1); Sodium 142 mmol/L (136-145); Total Protein 7.5 g/dL (6.4-8.2); Troponin I 39 ng/L (<or=51)
[2025-04-16] MEDS: nitroGLYcerin in D5W 50 MG/250 ML BTL IV (22:48)
[2025-04-16 22:50] LABS: D-Dimer 1026 ng/mlFEU (<500)
--- NOTE | 2025-04-16 23:07 | W.ED.GENAD ---
Discharge Plan Disposition Patient Disposition: Admit to [facility] Condition: Serious Discharge Details Clinical Impression: Acute hypoxemic respiratory failure, Heart failure, Hypertensive crisis, Acute non-ST elevation myocardial infarction (NSTEMI) Primary Care Provider: Regis Muller ED Provider: Sandy Aburto Home Meds and New Rx's Prescriptions: No Action fluticasone propionate [Allergy Relief (fluticasone)] 50 mcg/actuation spray,suspension 1 spray intranasal BID Rx Instructions: administer into each nostril hydrocodone-acetaminophen 325 mg PO DAILY PRN Patient Comments: prn lidocaine 5 % cream 1 applic topical BID PRN Patient Comments: prn, pt states not using often. removes after 1 hour. metronidazole 0.75 % cream 1 applic topical DAILY ferrous gluconate 324 mg (37.5 mg iron) tablet 324 mg PO DAILY amiodarone [Pacerone] 200 mg tablet 200 mg PO BID insulin glargine [Lantus U-100 Insulin] 100 UNITS/ML solution 25 unit Sub-Q BID Humalog U-100 Insulin 100 UNIT/ML cartridge 15 unit Sub-Q TID ascorbic acid (vitamin C) [Vitamin C] 1,000 mg Tablet 1,000 mg PO DAILY Multi For Her 18 mg iron-600 mcg-40 mcg Capsule 1 tab-cap PO DAILY pantoprazole [Protonix] 40 mg Tablet,Delayed Release (Dr/Ec) 40 mg PO BID rosuvastatin 20 mg Tablet 20 mg PO HS clopidogrel [Plavix] 75 mg tablet 75 mg PO DAILY metoprolol succinate 100 mg tablet extended release 24 hr 200 mg PO QHS amitriptyline 10 mg tablet 10 mg PO DIRECTED Patient Comments: TAKE ONE-HALF TO TWO TABLETS BY MOUTH AT BEDTIME Rx Instructions: 1/2 -2 tablets every night glipizide 5 mg tablet 5 mg PO DAILY Patient Comments: TAKE ONE TABLET BY MOUTH EVERY DAY sucralfate 1 gram Tablet 1 g PO AC & HS Qty: 120 0RF gabapentin 100 mg capsule 100 mg PO TID Patient Comments: TAKE ONE CAPSULE BY MOUTH THREE TIMES A DAY famotidine 40 mg tablet 40 mg PO DAILY Qty: 90 0RF vitamin B complex [B Complex-Vitamin B12] 1 EACH tablet 1 ea PO DAILY cholecalciferol (vitamin D3) [Vitamin D3] 1,000 UNIT capsule 1,000 unit PO DAILY losartan 100 MG tablet 100 mg PO HS (DME) OneTouch Ultra Test Strip MISCELLANEOUS Patient Comments: TEST THREE TIMES A DAY cyclobenzaprine 5 mg tablet 5 mg PO TID PRNQty: 10 0RF pioglitazone 15 mg tablet 15 mg PO DAILY Patient Comments: TAKE ONE TABLET BY MOUTH EVERY MORNING ondansetron 4 mg tablet,disintegrating 4 mg PO Q6H PRN (Reason: nausea and vomiting) Qty: 30 0RF Patient Comments: prn HPI General Mode of arrival: ambulatory. Date/Time Provider Initiated Documentation: 04/16/25 22:00. Limitations to Documentation: other (respiratoy distress). Information obtained by: patient and old records reviewed. HPI Narrative: 84yo F with reported hx COPD not on home O2 presenting for shortness of breath. Further medical history from chart review after patient stabilized shows hx diastolic heart failure, TAVR, CAD, afib, DM, and anemia (no diagnosis of COPD that I can see). On arrival she reports several days of cough, rhinnorhea, and shortness of breath which got much worse tonight and she does not feel like she can get enough air. No chest pain or LE edema. No fevers, chills, rash, nausea, vomiting or other concerns. Related Data Home Medications ?Medication ?Instructions ?Recorded ?Confirmed insulin glargine 100 unit/mL 25 unit subcut BID 11/28/15 12/17/24 subcutaneous solution (Lantus U-100 Insulin) insulin lispro 100 unit/mL 15 unit subcut TID 11/28/15 12/17/24 subcutaneous cartridge (Humalog U-100 Insulin) cholecalciferol (vitamin D3) 25 1,000 unit PO DAILY 01/30/18 12/17/24 mcg (1,000 unit) capsule (Vitamin D3) losartan 100 mg tablet 100 mg PO HS 01/30/18 12/17/24 vitamin B complex (B 1 ea PO DAILY 01/30/18 12/17/24 Complex-Vitamin B12 tablet) ascorbic acid (vitamin C) 1,000 mg 1,000 mg PO DAILY 04/14/20 12/17/24 tablet (Vitamin C) [id number]-[id number] fumarate 18 1 tab-cap PO DAILY 04/14/20 12/17/24 mg-FA 600 mcg-vit K 40 mcg capsule (Multi For Her) pantoprazole 40 mg tablet,delayed 40 mg PO BID 06/10/20 12/17/24 release (Protonix) rosuvastatin 20 mg tablet 20 mg PO HS 06/10/20 12/17/24 amiodarone 200 mg tablet (Pacerone) 200 mg PO BID 11/05/20 12/17/24 clopidogrel 75 mg tablet (Plavix) 75 mg PO DAILY 11/05/20 12/17/24 ferrous gluconate 324 mg (37.5 mg 324 mg PO DAILY 11/05/20 12/17/24 iron) tablet amitriptyline 10 mg tablet 10 mg PO DIRECTED 07/22/21 12/17/24 glipizide 5 mg tablet 5 mg PO DAILY 07/22/21 12/17/24 metoprolol succinate 100 mg 200 mg PO QHS 07/22/21 12/17/24 tablet,extended release 24 hr sucralfate 1 gram tablet 1 g PO AC & HS #120 tabs 07/23/21 12/17/24 blood sugar diagnostic (OneTouch 03/17/24 09/28/24 Ultra Test strips) famotidine 40 mg tablet 40 mg PO DAILY #90 tabs 04/28/24 12/17/24 gabapentin 100 mg capsule 100 mg PO TID 04/28/24 12/17/24 cyclobenzaprine 5 mg tablet 5 mg PO TID PRN #10 tabs 05/05/24 12/17/24 ondansetron 4 mg disintegrating 4 mg PO Q6H PRN nausea and 09/28/24 12/17/24 tablet vomiting #30 tabs pioglitazone 15 mg tablet 15 mg PO DAILY 09/28/24 12/17/24 fluticasone propionate 50 1 spray intranasal BID 10/27/24 12/17/24 mcg/actuation nasal spray,suspension (Allergy Relief (fluticasone)) hydrocodone-acetaminophen 325 mg PO DAILY PRN 10/27/24 12/17/24 lidocaine 5 % topical cream 1 applic topical BID PRN 10/27/24 12/17/24 metronidazole 0.75 % topical cream 1 applic topical DAILY 10/27/24 12/17/24 Previous Rx's ?Medication ?Instructions ?Recorded sucralfate 1 gram tablet 1 g PO AC & HS #120 tabs 07/23/21 famotidine 40 mg tablet 40 mg PO DAILY #90 tabs 04/28/24 cyclobenzaprine 5 mg tablet 5 mg PO TID PRN #10 tabs 05/05/24 ondansetron 4 mg disintegrating 4 mg PO Q6H PRN nausea and 09/28/24 tablet vomiting #30 tabs Allergies Allergy/AdvReac Type Severity Reaction Status Date / Time metformin Allergy Unknown Unknown Unverified 04/16/25 22:04 tramadol Allergy Unknown Unknown Unverified 04/16/25 22:04 codeine AdvReac Mild Nausea Verified 04/16/25 22:04 diltiazem AdvReac Mild Unknown Verified 04/16/25 22:04 epinephrine AdvReac Mild Unknown Verified 04/16/25 22:04 lisinopril AdvReac Mild cough Verified 04/16/25 22:04 pollen extracts AdvReac Topical Verified 04/16/25 22:04 Irritation General Stated Complaint: SOB LACEY: 3 Review of Systems Narrative: see HPI Exam Narrative Exam Narrative: General: Alert, respiratory distress Head: Normocephalic, atraumatic Neck: Trachea midline, ?Neck supple. ENT: ?MMM.? Cardiac: ?Tachycardiac,regular, no murmurs appreciated Resp: Tachpyneic, increased WOB. Poor air movement throughout, no adventitious breath sounds. Lips cyantoic. Abd: ?Soft, non-distended, nontender Extremities: ?No deformities.? No peripheral edema. Neurologic: GCS 15. ? Moves all extremities freely against gravity Course Vital Signs Vital signs: Vital Signs Pulse 122 H 04/16/25 21:57 Respiratory Rate 24 04/16/25 21:57 Blood Pressure 182/142 H 04/16/25 21:57 Pulse Oximetry 85 L 04/16/25 21:57 Pulse 88 04/16/25 22:52 Pulse 89 04/16/25 22:52 Respiratory Rate 25 H 04/16/25 22:52 Respiratory Effort Short of Breath, Labored, Accessory Muscle Use, Incrsd Work of Breathing 04/16/25 22:07 Respiratory Depth Shallow 04/16/25 22:07 Respiratory Pattern Tachypnea 04/16/25 22:07 Blood Pressure 190/66 H 04/16/25 22:52 Blood Pressure Mean 107 04/16/25 22:52 Blood Pressure Position Sitting 04/16/25 22:07 Pulse Oximetry 96 04/16/25 23:02 Oxygen Delivery Method Bi-pap 04/16/25 22:44 Oxygen Flow Rate 2 04/16/25 22:07 Fraction of Inspired Oxygen (FIO2) 30 04/16/25 23:02 Pain Level 0 04/16/25 21:57 Lab/Test Results Lab/Test Results: 04/16/25 22:23 Blood Blood Culture - Pending 04/16/25 22:10 Blood Blood Culture - Pending Laboratory Tests Range/Units 04/16/25 22:10 WBC (4.4-10.8) 10^3/uL 11.23 H RBC (3.93-5.22) 10^6/uL 3.58 L Hgb (11.2-15.7) g/dL 8.6 L Hct (36.0-46.0) % 29.3 L MCV (80-95) fL 82 MCH (27.0-33.0) pg 24.0 L MCHC (32.0-36.0) % 29.4 L RDW (11.7-14.6) % 16.8 H Plt Count (130-400) 10^3/uL 285 MPV (8.0-11.0) fL 10.3 Immature Gran % % 0.4 Neutrophils % % 58.4 Lymphocytes % % 28.0 Monocytes % % 10.4 Eosinophils % % 2.1 Basophils % % 0.7 Nucleated RBC % (0.0-0.3) % 0.0 Absolute Neutrophils (1.2-6.7) 10^3/uL 6.56 Absolute Lymphocytes (1.2-3.4) 10^3/uL 3.14 Absolute Monocytes (0.1-0.8) 10^3/uL 1.17 H Absolute Eosinophils (0.0-0.7) 10^3/uL 0.24 Absolute Basophils (0.0-0.2) 10^3/uL 0.08 D-Dimer (<500) ng/mlFEU 1026 H VBG pH (7.31-7.41) 7.33 VBG pCO2 (41-51) mmHg 41 VBG pO2 mmHg 47 VBG HCO3 (23-28) mmol/L 22 L VBG Total CO2 (24-29) mmol/L 21 L VBG O2 Saturation % 78 VBG Base Excess (-2-3) mmol/L -4 L VBG Lactate (<or=2.0) mmol/L 3.4 H* Sodium (136-145) mmol/L 142 Potassium (3.5-5.1) mmol/L 4.1 Chloride (98-107) mmol/L 105 Carbon Dioxide (21.0-32.0) mmol/L 22.8 Anion Gap (3-11) mmol/L 14.2 H BUN (7-18) mg/dL 16 Creatinine (0.55-1.02) mg/dL 0.9 Est GFR (CKD-EPI 2020) (mL/min/1.73m2) 63.04 Glucose (74-106) mg/dL 238 H Calcium (8.5-10.1) mg/dL 8.9 Magnesium (1.8-2.4) mg/dL 2.1 Total Bilirubin (0.2-1.0) mg/dL 1.2 H AST (15-37) U/L 43 H ALT (14-59) U/L 32 Alkaline Phosphatase (46-116) U/L 146 H Troponin I (<or=51) ng/L 39 NT-Pro-B Natriuret Pep (<300) pg/mL 597 H Total Protein (6.4-8.2) g/dL 7.5 Albumin (3.4-5.0) g/dL 3.6 Medical Decision Making 84yo F with reported hx COPD not on home O2 presenting for shortness of breath. On arrival she reports several days of URI symptoms and tonight worsening shortness of breath. Further medical history from chart review after patient stabilized shows hx diastolic heart failure, TAVR, CAD, afib, DM, and anemia (no diagnosis of COPD that I can see). Initial eval and resus: Hypertensive and tachycardiac on arrival, O2 sat mid 80's on room air. On arrival she is in moderate respiratory distress, tachpyneic, poor air movement throughout. Lips cyanotic. EKG difficult to interpret 2/t motion artifact; HR 110's, appears sinus, RBBB, no clear ST segment or T wave abnormalities to suggest occlusive TN. Initial history and exam most concerning for COPD exacerbation. Started on stacked duonebs, O2, and respiratory paged. Given IV meythlpred. Ceftriazone ordered. Nursing obtaining BiPAP machine. While awaiting arrival of BiPAP pt became increasingly distressed, symptomatically much more SOB, SBP now 240's. CXR performed and independently reviewed, diffuse opacities concerning for pulmonary edema on my view. Concern for sympathetic crashing acute pulmonary edema and hypertensive crisis; given 10mg IV lopressor and started on nitroglycerin gtt with goal SBP 170's. Will diurese with IV lasix. BiPAP obtained at started on 8 60% FiO2 wtih improvement in work of breathing and respiratory distress. Titrated down to 12/5 and 40% FiO2 shortly thereafter. Repeat EKG sinus tachycardia, RBBB, no occlusive ischemic changes. Medical records reviewed; pt without diagnosis of COPD as she initially reported, does have diastolic heart failure and is s/p TAVR. ED course: - Labs reviewed as below, CBC with mild leukocytosis at 11 (nonspecific) and anemia with Hg 8.6 (chronic on [facility] record review), CMP with no actionable abnormalities, Mg normal, VBG metabolic acidosis and no hypercapnea, -lacate elevated at 3.4, dimer elevated (will get CTA), BNP mildly elevated at 597 (baseline on [facility] record review), initial troponin 39. UA not suggestive of infection. Resp viral swabs negative. -CXR independently reviewed, diffuse opacities concerning for pulmonary edema on my view; radiology read with pulmonary edema vs BL pneumonia. -Given possible pneumonia, elevated lactate, tachcyardia must consider sepsis. Will add vanco for broad spectrum abx. With respiratory distress/pulmonary edema would not give IVF. Able to wean off BiPAP, wean down nitro gtt to 5. Breathing remains much improved; she continues to require 2L NC to maintain O2 sat. Repeat VBG with continued metabolic acidosis, pH slightly lower likely 2/t decreased respiratory rate now that her respiratory distress has improved. Repeat lactate downtrending at 2.9. Repeat trops trending upwards: 48, 108, likely [id number]. Repeat EKG with no dynamic changes. CTA independently reviewed; no large saddle embolus on my view, agree with radiology read below with pulmonary edema and small/moderate pleural effusions. [place] [facility] [place]; advised echo in the morning, medical treatment for heart failure, outpatient stress test after hospital discharge; no indication for emergent/urgent ischemic eval or other intervention. Discussed with [facility] hospitalist Dr. Peñaloza; pt accepted to medicine service. Awaiting admission orders. CXR: IMPRESSION: Pulmonary edema versus bilateral pneumonia. CTA: IMPRESSION: 1. CHF. 2. Moderate cardiomegaly. 3. Moderate left and small right pleural effusions . 4. Mild interstitial and alveolar pulmonary edema. 5. Mild dependent subsegmental atelectasis. 6. Additional findings as described. Medical Records Medical records reviewed: Yes I reviewed the patient's medical records. Lab Data Lab results reviewed: Yes I reviewed the patient's lab results. Labs: 04/16/25 22:23 Blood Blood Culture - Pending 04/16/25 22:10 Blood Blood Culture - Pending Laboratory Tests Range/Units 04/16/25 04/16/25 04/16/25 22:10 23:06 23:11 WBC (4.4-10.8) 10^3/uL 11.23 H RBC (3.93-5.22) 10^6/uL 3.58 L Hgb (11.2-15.7) g/dL 8.6 L Hct (36.0-46.0) % 29.3 L MCV (80-95) fL 82 MCH (27.0-33.0) pg 24.0 L MCHC (32.0-36.0) % 29.4 L RDW (11.7-14.6) % 16.8 H Plt Count (130-400) 10^3/uL 285 MPV (8.0-11.0) fL 10.3 Immature Gran % % 0.4 Neutrophils % % 58.4 Lymphocytes % % 28.0 Monocytes % % 10.4 Eosinophils % % 2.1 Basophils % % 0.7 Nucleated RBC % (0.0-0.3) % 0.0 Absolute Neutrophils (1.2-6.7) 10^3/uL 6.56 Absolute Lymphocytes (1.2-3.4) 10^3/uL 3.14 Absolute Monocytes (0.1-0.8) 10^3/uL 1.17 H Absolute Eosinophils (0.0-0.7) 10^3/uL 0.24 Absolute Basophils (0.0-0.2) 10^3/uL 0.08 PT (9.1-11.1) sec 11.7 H INR (0.9-1.1) 1.2 H APTT (20.6-30.2) sec 20.9 D-Dimer (<500) ng/mlFEU 1026 H VBG pH (7.31-7.41) 7.33 VBG pCO2 (41-51) mmHg 41 VBG pO2 mmHg 47 VBG HCO3 (23-28) mmol/L 22 L VBG Total CO2 (24-29) mmol/L 21 L VBG O2 Saturation % 78 VBG Base Excess (-2-3) mmol/L -4 L VBG Lactate (<or=2.0) mmol/L 3.4 H* Sodium (136-145) mmol/L 142 Potassium (3.5-5.1) mmol/L 4.1 Chloride (98-107) mmol/L 105 Carbon Dioxide (21.0-32.0) mmol/L 22.8 Anion Gap (3-11) mmol/L 14.2 H BUN (7-18) mg/dL 16 Creatinine (0.55-1.02) mg/dL 0.9 Est GFR (CKD-EPI 2020) (mL/min/1.73m2) 63.04 Glucose (74-106) mg/dL 238 H Calcium (8.5-10.1) mg/dL 8.9 Magnesium (1.8-2.4) mg/dL 2.1 Total Bilirubin (0.2-1.0) mg/dL 1.2 H AST (15-37) U/L 43 H ALT (14-59) U/L 32 Alkaline Phosphatase (46-116) U/L 146 H Troponin I (<or=51) ng/L 39 48 NT-Pro-B Natriuret Pep (<300) pg/mL 597 H Total Protein (6.4-8.2) g/dL 7.5 Albumin (3.4-5.0) g/dL 3.6 Urine Color (Yellow) Urine Clarity (Clear) Urine pH (5-8) Ur Specific [place] (1.005-1.025) Urine Protein (Neg-Trace) mg/dL Urine Ketones (Negative) mg/dL Urine Blood (Negative) Urine Nitrite (Negative) Urine Bilirubin (Negative) Urine Urobilinogen (Up to 0.2) mg/dL Ur Leukocyte Esterase (Negative) Urine RBC (0-2) HPF Urine WBC (0-5) HPF Ur Epithelial Cells (Negative) HPF Urine Crystals (Negative) HPF Urine Bacteria (Negative) HPF Urine Casts (Negative) LPF Urine Mucus (Negative) Ur Culture Indicated? Urine Glucose (Negative) mg/dL COVID-19 Source SARS-CoV-2 (PCR) (Negative) Influenza Type A (PCR) (Negative) Influenza Type B (PCR) (Negative) RSV (PCR) (Negative) Add-On Test Request DONE Range/Units 04/16/25 04/17/25 04/17/25 23:20 00:12 01:10 WBC (4.4-10.8) 10^3/uL RBC (3.93-5.22) 10^6/uL Hgb (11.2-15.7) g/dL Hct (36.0-46.0) % MCV (80-95) fL MCH (27.0-33.0) pg MCHC (32.0-36.0) % RDW (11.7-14.6) % Plt Count (130-400) 10^3/uL MPV (8.0-11.0) fL Immature Gran % % Neutrophils % % Lymphocytes % % Monocytes % % Eosinophils % % Basophils % % Nucleated RBC % (0.0-0.3) % Absolute Neutrophils (1.2-6.7) 10^3/uL Absolute Lymphocytes (1.2-3.4) 10^3/uL Absolute Monocytes (0.1-0.8) 10^3/uL Absolute Eosinophils (0.0-0.7) 10^3/uL Absolute Basophils (0.0-0.2) 10^3/uL PT (9.1-11.1) sec INR (0.9-1.1) APTT (20.6-30.2) sec D-Dimer (<500) ng/mlFEU VBG pH (7.31-7.41) 7.30 L VBG pCO2 (41-51) mmHg 47 VBG pO2 mmHg 42 VBG HCO3 (23-28) mmol/L 23 VBG Total CO2 (24-29) mmol/L 22 L VBG O2 Saturation % 69 VBG Base Excess (-2-3) mmol/L -4 L VBG Lactate (<or=2.0) mmol/L 2.9 H* Sodium (136-145) mmol/L Potassium (3.5-5.1) mmol/L Chloride (98-107) mmol/L Carbon Dioxide (21.0-32.0) mmol/L Anion Gap (3-11) mmol/L BUN (7-18) mg/dL Creatinine (0.55-1.02) mg/dL Est GFR (CKD-EPI 2020) (mL/min/1.73m2) Glucose (74-106) mg/dL Calcium (8.5-10.1) mg/dL Magnesium (1.8-2.4) mg/dL Total Bilirubin (0.2-1.0) mg/dL AST (15-37) U/L ALT (14-59) U/L Alkaline Phosphatase (46-116) U/L Troponin I (<or=51) ng/L 108 H* NT-Pro-B Natriuret Pep (<300) pg/mL Total Protein (6.4-8.2) g/dL Albumin (3.4-5.0) g/dL Urine Color (Yellow) Urine Clarity (Clear) Urine pH (5-8) Ur Specific [place] (1.005-1.025) Urine Protein (Neg-Trace) mg/dL Urine Ketones (Negative) mg/dL Urine Blood (Negative) Urine Nitrite (Negative) Urine Bilirubin (Negative) Urine Urobilinogen (Up to 0.2) mg/dL Ur Leukocyte Esterase (Negative) Urine RBC (0-2) HPF Urine WBC (0-5) HPF Ur Epithelial Cells (Negative) HPF Urine Crystals (Negative) HPF Urine Bacteria (Negative) HPF Urine Casts (Negative) LPF Urine Mucus (Negative) Ur Culture Indicated? Urine Glucose (Negative) mg/dL COVID-19 Source Nasopharynx SARS-CoV-2 (PCR) (Negative) Negative Influenza Type A (PCR) (Negative) Negative Influenza Type B (PCR) (Negative) Negative RSV (PCR) (Negative) Negative Add-On Test Request Range/Units 04/17/25 03:53 WBC (4.4-10.8) 10^3/uL RBC (3.93-5.22) 10^6/uL Hgb (11.2-15.7) g/dL Hct (36.0-46.0) % MCV (80-95) fL MCH (27.0-33.0) pg MCHC (32.0-36.0) % RDW (11.7-14.6) % Plt Count (130-400) 10^3/uL MPV (8.0-11.0) fL Immature Gran % % Neutrophils % % Lymphocytes % % Monocytes % % Eosinophils % % Basophils % % Nucleated RBC % (0.0-0.3) % Absolute Neutrophils (1.2-6.7) 10^3/uL Absolute Lymphocytes (1.2-3.4) 10^3/uL Absolute Monocytes (0.1-0.8) 10^3/uL Absolute Eosinophils (0.0-0.7) 10^3/uL Absolute Basophils (0.0-0.2) 10^3/uL PT (9.1-11.1) sec INR (0.9-1.1) APTT (20.6-30.2) sec D-Dimer (<500) ng/mlFEU VBG pH (7.31-7.41) VBG pCO2 (41-51) mmHg VBG pO2 mmHg VBG HCO3 (23-28) mmol/L VBG Total CO2 (24-29) mmol/L VBG O2 Saturation % VBG Base Excess (-2-3) mmol/L VBG Lactate (<or=2.0) mmol/L Sodium (136-145) mmol/L Potassium (3.5-5.1) mmol/L Chloride (98-107) mmol/L Carbon Dioxide (21.0-32.0) mmol/L Anion Gap (3-11) mmol/L BUN (7-18) mg/dL Creatinine (0.55-1.02) mg/dL Est GFR (CKD-EPI 2020) (mL/min/1.73m2) Glucose (74-106) mg/dL Calcium (8.5-10.1) mg/dL Magnesium (1.8-2.4) mg/dL Total Bilirubin (0.2-1.0) mg/dL AST (15-37) U/L ALT (14-59) U/L Alkaline Phosphatase (46-116) U/L Troponin I (<or=51) ng/L NT-Pro-B Natriuret Pep (<300) pg/mL Total Protein (6.4-8.2) g/dL Albumin (3.4-5.0) g/dL Urine Color (Yellow) Yellow Urine Clarity (Clear) Clear Urine pH (5-8) 5.5 Ur Specific [place] (1.005-1.025) 1.015 Urine Protein (Neg-Trace) mg/dL Trace Urine Ketones (Negative) mg/dL Negative Urine Blood (Negative) Small H Urine Nitrite (Negative) Negative Urine Bilirubin (Negative) Negative Urine Urobilinogen (Up to 0.2) mg/dL 0.2 Ur Leukocyte Esterase (Negative) Negative Urine RBC (0-2) HPF 3-5 H Urine WBC (0-5) HPF Negative Ur Epithelial Cells (Negative) HPF Rare Urine Crystals (Negative) HPF Negative Urine Bacteria (Negative) HPF Rare Urine Casts (Negative) LPF Negative Urine Mucus (Negative) Negative Ur Culture Indicated? No Urine Glucose (Negative) mg/dL 250 H COVID-19 Source SARS-CoV-2 (PCR) (Negative) Influenza Type A (PCR) (Negative) Influenza Type B (PCR) (Negative) RSV (PCR) (Negative) Add-On Test Request Critical Care Time Critical Care Time Critical Care Time: Yes Total Critical Care Time: 48 Attestation: Due to a high probability of clinically significant, life threatening deterioration, the patient required my highest level of preparedness to intervene emergently and I personally spent this critical care time directly and personally managing the patient. This critical care time included obtaining a history; examining the patient; pulse oximetry; ordering and review of studies; arranging urgent treatment with development of a management plan; evaluation of patient's response to treatment; frequent reassessment; and, discussions with other providers. This critical care time was performed to assess and manage the high probability of imminent, life-threatening deterioration that could result in multi-organ failure. It was exclusive of separately billable procedures and treating other patients? PFSH All Active Problems (Updated 04/17/25 @ 05:39 by Sandy Aburto MD) Acute non-ST elevation myocardial infarction (NSTEMI) (Acute) Hypertensive crisis (Acute) Heart failure (Acute) Acute hypoxemic respiratory failure (Acute) Lumbar spondylosis (Acute) Mechanical low back pain (Acute) Exposure to COVID-19 virus (Acute ~04/12/23) Acute on chronic diastolic CHF (congestive heart failure), NYHA class 2 (Chronic) Cervical disc herniation (Chronic) Diabetes mellitus (Chronic) S/P TAVR (transcatheter aortic valve replacement) (Acute) Anemia (Acute) Medical History Palpable mass of lower back Lumbar spinal stenosis Low back pain Spinal stenosis Paroxysmal atrial fibrillation Atherosclerotic cardiovascular disease Aortic stenosis Acute cholecystitis BP (high blood pressure) Degenerative joint disease of right knee Closed fracture of left distal fibula (03/31/19) Surgical History H/O esophagogastroduodenoscopy (~2019) S/P colonoscopy (~2019) History of hysterectomy History of cataract surgery Social History Smoking/Tobacco Use Status: Never Smoking risk assessment performed?: Yes Alcohol Intake: never Drug use: Never Substance use type: does not use Housing: house What type of physical activity do you participate in: additional Details: PT to start Do you feel safe at home: Yes Do you feel safe in your relationship?: Yes
[2025-04-16 23:11] LABS: Lab Add On Test DONE
[2025-04-16 23:27] LABS: INR 1.2 (0.9-1.1); PTT Activated 20.9 sec (20.6-30.2); Prothrombin Time 11.7 sec (9.1-11.1)
[2025-04-16 23:36] LABS: Troponin I 48 ng/L (<or=51)
[2025-04-17] VITALS (109 sets, daily range): BP systolic 97–182; BP diastolic 38–106; PULSE 82–107; RESP 16–31; TEMP 36.1–37; O2SAT 86–98
[2025-04-17 00:04] LABS: COVID-19 PCR Negative (Negative); RSV PCR Negative (Negative)
[2025-04-17 00:15] LABS: BE (Venous) -4 mmol/L (-2-3); HCO3 (Venous) 23 mmol/L (23-28); O2 Sat (Venous) 69 %; TCO2 (Venous) 22 mmol/L (24-29); pCO2 (Venous) 47 mmHg (41-51); pO2 (Venous) 42 mmHg
[2025-04-17] MEDS: Normal Saline - Diluent 50 ML VIAL IJ (00:38)
[2025-04-17] MEDS: Omnipaque 350 MG/ML 100 ML BTL IJ (00:38)
--- NOTE | 2025-04-17 00:54 | DI.VRAD_ITS ---
PROCEDURE INFORMATION: Exam: CTA Chest With Contrast Exam date and time: 04/17/2025 00:10 Age: 84 years old Clinical indication: Other: Hypoxia, respiratory distress, + dimer; Prior surgery; Surgery date: 6+ months; Surgery type: Heart stents TECHNIQUE: Imaging protocol: Computed tomographic angiography of the chest with contrast. Exam focused on the arteries. 3D rendering (Not supervised by radiologist): MIP and/or 3D reconstructed images were created by the technologist. Radiation optimization: All CT scans at this facility use at least one of these dose optimization techniques: automated exposure control; mA and/or kV adjustment per patient size (includes targeted exams where dose is matched to clinical indication); or iterative reconstruction. Contrast material: [id number]; Contrast volume: 75 ml; Contrast route: INTRAVENOUS (IV); COMPARISON: CT CHEST PE ABD PELVIS W 04/12/2023 21:30 FINDINGS: Tubes, catheters and devices: Aortic valvular prosthesis in the expected position. Pulmonary arteries: No pulmonary emboli. Aorta: No aortic aneurysm. No aortic dissection. Thyroid: Multiple small thyroid nodules are suspected and could be worked up with thyroid ultrasound. Lungs: Multi lobar mild interlobular septal thickening and scattered ground-glass opacities. Mild dependent subsegmental atelectasis. Pleural spaces: Moderate left and small right pleural effusions . No pneumothorax. Heart: Moderate cardiomegaly. Lymph nodes: No enlarged lymph nodes. Gallbladder and biliary ducts: Cholecystectomy. Bones/joints: Chronic bony changes with no acute fracture. Soft tissues: Prominent subcutaneous fat. IMPRESSION: 1. CHF. 2. Moderate cardiomegaly. 3. Moderate left and small right pleural effusions . 4. Mild interstitial and alveolar pulmonary edema. 5. Mild dependent subsegmental atelectasis. 6. Additional findings as described. Dictated and Authenticated by: Sabina Fuentes MD. Orderin Lamonte Delgado MD
--- NOTE | 2025-04-17 01:30 | RT.EKG_ITS ---
APPROVED REPORT Exam: Resting ECG Reason for Exam: shortness of breath Patient Location: E HR:94 bpm ECG Measurements Heart Rate 94 AXIS [place] 193 P 132 QRSd 166 QRS -112 QT 407 T 81 QTc 509 Conclusion Sinus rhythm...normal P axis, V-rate 60- 99 RBBB and LAFB...QRSd >120mS, axis(-40,240) no ST segment or T wave abnormalities to suggest occlusive TX
[2025-04-17 01:38] LABS: Troponin I 108 ng/L (<or=51)
[2025-04-17 04:03] LABS: Glucose 250 mg/dL (Negative)
[2025-04-17 04:08] LABS: WBC Negative HPF (0-5)
[2025-04-17 04:09] LABS: C & S Indicated? No
[2025-04-17 05:00] LABS: BE (Venous) -4 mmol/L (-2-3); HCO3 (Venous) 22 mmol/L (23-28); O2 Sat (Venous) 99 %; TCO2 (Venous) 21 mmol/L (24-29); pCO2 (Venous) 37 mmHg (41-51); pO2 (Venous) 107 mmHg
[2025-04-17 05:28] LABS: Troponin I 158 ng/L (<or=51)
--- NOTE | 2025-04-17 05:51 | W.PM.HP.N ---
Date of service: 04/17/25 Time of Service: 06:01 Assessment and Plan Assessment and plan (1) Acute pulmonary edema with congestive heart failure: Status: Acute Assessment and plan: Flash pulmonary edema responsive to NIPPV and loop diuretic Known diastolic HF, CAD with stent, aortic valve replacement She is off bipap on NC2L [facility] cardiology recommending echo and GDMT, outpatient stress Echo ordered Will await echo for GDMT, continue home losartan 100 (2) Hypertensive crisis: Status: Acute Assessment and plan: Severe range pressures improved with metoprolol Continue ARB as above, anticipate adjustment to regimen after echo (3) Acute hypoxemic respiratory failure: Status: Acute Assessment and plan: Initial SpO2 mid-80's, improved with diuresis, bipap Now on NC2L Not on home O2 Anticipate additional diuresis (4) Acute on chronic heart failure with preserved ejection fraction (HFpEF): Status: Acute Assessment and plan: Previous EF not available, awaiting echo No edema at this time (5) Acute non-ST elevation myocardial infarction (NSTEMI): Status: Acute Assessment and plan: Troponin elevation likely demand ischemia Consider additional troponin level to confirm downtrend (6) S/P TAVR (transcatheter aortic valve replacement): Status: Chronic Assessment and plan: Noted history (7) Uncontrolled diabetes mellitus with hyperglycemia: Status: Chronic Assessment and plan: Last known A1C 9.1, repeat ordered Patient not on insulin, reportedly due to cost of medications Home regimen pioglitazone, held Ordered basal insulin 10u QAM and medium correctional Ordered DM education (8) Microcytic anemia: Status: Chronic Assessment and plan: Chronic anemia noted in the record Hemoglobin level is concerning - ordered iron panel (9) Paroxysmal atrial fibrillation: Assessment and plan: Noted history, present on arrival, no longer in afib Continue home amiodarone Consider anticoag History of Present Illness History of Present Illness Chief Complaint: shortness of breath Narrative: Shannan Moody is an 84 year old woman presenting April 16 with shortness of breath. She reports feeling ill all week with cough, nasal drip and dyspnea. Her dyspnea worsened tonight and she developed air hunger. On arrival she had no chest pain and no lower extremity edema. On interview for admission she reports feeling much better. No chest pain, no shortness of breath, no abdominal pain. PMH includes paroxysmal afib on amiodarone not anticoagulated, HFpEF, CAD with 2020 stent, TAVR, COPD not on meds nor O2, DM2 poorly controlled on orals due to expense, chronic back pain previously on opioids, anemia In the ED she was found to be hypertensive 182/142 worsening to 252/130, tachycardic 120's, hypoxemic SpO2 85. Respiration rate initially 24 but worsened to 44. EKG showed afib. 2L O2 via NC was insufficient and she was started on bipap as CXR showed pulmonary edema. Chest CT showed moderate bilateral pleural effusions and mild interstitial/alveolar pulmonary edema; multiple thyroid nodules were seen; no PE. Troponin 39 rising to 158. BNP 597CBC with monocytic leukocytosis WBC 11.23, normocytic anemia hgb 8.6, ddimer 1026, INR 1.2. Lactate elevated 2.9 rising to 4.0. Anion gap 14.2 without electrolyte derangement. Glucose 238. Glucosuria 250. She was given IV metoprolol which brought BP to normal range, and her O2 need improved and she was back on NC2L. She was given solumedrol, ceftriaxone, furosemide, nitroglycerin and vancomycin. [facility] cardiology Dr Santiago was consulted and he advised echo, GDMT and outpatient stress. PFSH All Active Problems (Updated 04/17/25 @ 06:54 by Altaf Peñaloza MD) Microcytic anemia (Chronic) Uncontrolled diabetes mellitus with hyperglycemia (Chronic) Acute on chronic heart failure with preserved ejection fraction (HFpEF) (Acute) Acute pulmonary edema with congestive heart failure (Acute) Acute non-ST elevation myocardial infarction (NSTEMI) (Acute) Hypertensive crisis (Acute) Heart failure (Acute) Acute hypoxemic respiratory failure (Acute) Lumbar spondylosis (Acute) Mechanical low back pain (Acute) Exposure to COVID-19 virus (Acute ~04/12/23) Acute on chronic diastolic CHF (congestive heart failure), NYHA class 2 (Chronic) Cervical disc herniation (Chronic) Diabetes mellitus (Chronic) S/P TAVR (transcatheter aortic valve replacement) (Chronic) Anemia (Acute) Medical History Palpable mass of lower back Lumbar spinal stenosis Low back pain Spinal stenosis Paroxysmal atrial fibrillation Atherosclerotic cardiovascular disease Aortic stenosis Acute cholecystitis BP (high blood pressure) Degenerative joint disease of right knee Closed fracture of left distal fibula (03/31/19) Surgical History H/O esophagogastroduodenoscopy (~2019) S/P colonoscopy (~2019) History of hysterectomy History of cataract surgery Social History Smoking/Tobacco Use Status: Never Smoking risk assessment performed?: Yes Alcohol Intake: never Drug use: Never Substance use type: does not use Housing: house What type of physical activity do you participate in: additional Details: PT to start Do you feel safe at home: Yes Do you feel safe in your relationship?: Yes Meds Allergies and Home Medications Allergies Allergy/AdvReac Type Severity Reaction Status Date / Time metformin Allergy Unknown Unknown Unverified 04/16/25 22:04 tramadol Allergy Unknown Unknown Unverified 04/16/25 22:04 codeine AdvReac Mild Nausea Verified 04/16/25 22:04 diltiazem AdvReac Mild Unknown Verified 04/16/25 22:04 epinephrine AdvReac Mild Unknown Verified 04/16/25 22:04 lisinopril AdvReac Mild cough Verified 04/16/25 22:04 pollen extracts AdvReac Topical Verified 04/16/25 22:04 Irritation Home Medications ?Medication ?Instructions ?Recorded ?Confirmed ?Type insulin glargine 100 unit/mL 25 unit subcut BID 11/28/15 04/17/25 History subcutaneous solution (Lantus U-100 Insulin) insulin lispro 100 unit/mL 15 unit subcut TID 11/28/15 04/17/25 History subcutaneous cartridge (Humalog U-100 Insulin) cholecalciferol (vitamin D3) 25 1,000 unit PO DAILY 01/30/18 04/17/25 History mcg (1,000 unit) capsule (Vitamin D3) losartan 100 mg tablet 100 mg PO HS 01/30/18 04/17/25 History vitamin B complex (B 1 ea PO DAILY 01/30/18 04/17/25 History Complex-Vitamin B12 tablet) ascorbic acid (vitamin C) 1,000 mg 1,000 mg PO DAILY 04/14/20 04/17/25 History tablet (Vitamin C) [id number] fumarate 18 1 tab-cap PO DAILY 04/14/20 04/17/25 History mg-FA 600 mcg-vit K 40 mcg capsule (Multi For Her) pantoprazole 40 mg tablet,delayed 40 mg PO BID 06/10/20 04/17/25 History release (Protonix) rosuvastatin 20 mg tablet 20 mg PO HS 06/10/20 12/17/24 History amiodarone 200 mg tablet (Pacerone) 200 mg PO BID 11/05/20 04/17/25 History clopidogrel 75 mg tablet (Plavix) 75 mg PO DAILY 11/05/20 04/17/25 History ferrous gluconate 324 mg (37.5 mg 324 mg PO DAILY 11/05/20 04/17/25 History iron) tablet amitriptyline 10 mg tablet 10 mg PO DIRECTED 07/22/21 04/17/25 History glipizide 5 mg tablet 5 mg PO DAILY 07/22/21 04/17/25 History metoprolol succinate 100 mg 200 mg PO QHS 07/22/21 04/17/25 History tablet,extended release 24 hr sucralfate 1 gram tablet 1 g PO AC & HS #120 tabs 07/23/21 12/17/24 Rx blood sugar diagnostic (OneTouch 03/17/24 04/17/25 History Ultra Test strips) famotidine 40 mg tablet 40 mg PO DAILY #90 tabs 04/28/24 12/17/24 Rx gabapentin 100 mg capsule 100 mg PO TID 04/28/24 04/17/25 History cyclobenzaprine 5 mg tablet 5 mg PO TID PRN #10 tabs 05/05/24 12/17/24 Rx ondansetron 4 mg disintegrating 4 mg PO Q6H PRN nausea and 09/28/24 04/17/25 Rx tablet vomiting #30 tabs Held on 04/17/25. Instructions: Prescription Finished pioglitazone 15 mg tablet 15 mg PO DAILY 09/28/24 12/17/24 History fluticasone propionate 50 1 spray intranasal BID 10/27/24 04/17/25 History mcg/actuation nasal spray,suspension (Allergy Relief (fluticasone)) hydrocodone-acetaminophen 325 mg PO DAILY PRN 10/27/24 12/17/24 History lidocaine 5 % topical cream 1 applic topical BID PRN 10/27/24 04/17/25 History metronidazole 0.75 % topical cream 1 applic topical DAILY 10/27/24 04/17/25 History Exam Narrative Exam Narrative: General: This is an elderly woman, tired-appearing, in no acute distress HEENT: Normocephalic, atraumatic CV: mild tachycardia low 90's, not in afib on the monitor, no murmur Resp: Good movement of air without increased work of breathing on 2L Abd: soft, NTND +NBS MSK: voluntary motion x4, no LE edema Neuro: awake, alert, no focal deficits Results Labs 04/16/25 22:10 04/16/25 22:10 Labs: Laboratory Results - last 24 hr 04/16/25 04/16/25 04/16/25 22:10 23:06 23:11 WBC 11.23 H RBC 3.58 L Hgb 8.6 L Hct 29.3 L MCV 82 MCH 24.0 L MCHC 29.4 L RDW 16.8 H Plt Count 285 MPV 10.3 Immature Gran % 0.4 Neutrophils % 58.4 Lymphocytes % 28.0 Monocytes % 10.4 Eosinophils % 2.1 Basophils % 0.7 Nucleated RBC % 0.0 Absolute Neutrophils 6.56 Absolute Lymphocytes 3.14 Absolute Monocytes 1.17 H Absolute Eosinophils 0.24 Absolute Basophils 0.08 PT 11.7 H INR 1.2 H APTT 20.9 D-Dimer 1026 H VBG pH 7.33 VBG pCO2 41 VBG pO2 47 VBG HCO3 22 L VBG Total CO2 21 L VBG O2 Saturation 78 VBG Base Excess -4 L VBG Lactate 3.4 H* Sodium 142 Potassium 4.1 Chloride 105 Carbon Dioxide 22.8 Anion Gap 14.2 H BUN 16 Creatinine 0.9 Est GFR (CKD-EPI 2020) 63.04 Glucose 238 H Calcium 8.9 Magnesium 2.1 Total Bilirubin 1.2 H AST 43 H ALT 32 Alkaline Phosphatase 146 H Troponin I 39 48 NT-Pro-B Natriuret Pep 597 H Total Protein 7.5 Albumin 3.6 Urine Color Urine Clarity Urine pH Ur Specific [place] Urine Protein Urine Ketones Urine Blood Urine Nitrite Urine Bilirubin Urine Urobilinogen Ur Leukocyte Esterase Urine RBC Urine WBC Ur Epithelial Cells Urine Crystals Urine Bacteria Urine Casts Urine Mucus Ur Culture Indicated? Urine Glucose COVID-19 Source SARS-CoV-2 (PCR) Influenza Type A (PCR) Influenza Type B (PCR) RSV (PCR) Add-On Test Request DONE 04/16/25 04/17/25 04/17/25 23:20 00:12 01:10 WBC RBC Hgb Hct MCV MCH MCHC RDW Plt Count MPV Immature Gran % Neutrophils % Lymphocytes % Monocytes % Eosinophils % Basophils % Nucleated RBC % Absolute Neutrophils Absolute Lymphocytes Absolute Monocytes Absolute Eosinophils Absolute Basophils PT INR APTT D-Dimer VBG pH 7.30 L VBG pCO2 47 VBG pO2 42 VBG HCO3 23 VBG Total CO2 22 L VBG O2 Saturation 69 VBG Base Excess -4 L VBG Lactate 2.9 H* Sodium Potassium Chloride Carbon Dioxide Anion Gap BUN Creatinine Est GFR (CKD-EPI 2020) Glucose Calcium Magnesium Total Bilirubin AST ALT Alkaline Phosphatase Troponin I 108 H* NT-Pro-B Natriuret Pep Total Protein Albumin Urine Color Urine Clarity Urine pH Ur Specific [place] Urine Protein Urine Ketones Urine Blood Urine Nitrite Urine Bilirubin Urine Urobilinogen Ur Leukocyte Esterase Urine RBC Urine WBC Ur Epithelial Cells Urine Crystals Urine Bacteria Urine Casts Urine Mucus Ur Culture Indicated? Urine Glucose COVID-19 Source Nasopharynx SARS-CoV-2 (PCR) Negative Influenza Type A (PCR) Negative Influenza Type B (PCR) Negative RSV (PCR) Negative Add-On Test Request 04/17/25 04/17/25 03:53 04:50 WBC RBC Hgb Hct MCV MCH MCHC RDW Plt Count MPV Immature Gran % Neutrophils % Lymphocytes % Monocytes % Eosinophils % Basophils % Nucleated RBC % Absolute Neutrophils Absolute Lymphocytes Absolute Monocytes Absolute Eosinophils Absolute Basophils PT INR APTT D-Dimer VBG pH 7.38 VBG pCO2 37 L VBG pO2 107 VBG HCO3 22 L VBG Total CO2 21 L VBG O2 Saturation 99 VBG Base Excess -4 L VBG Lactate 4.0 H* Sodium Potassium Chloride Carbon Dioxide Anion Gap BUN Creatinine Est GFR (CKD-EPI 2020) Glucose Calcium Magnesium Total Bilirubin AST ALT Alkaline Phosphatase Troponin I 158 H* NT-Pro-B Natriuret Pep Total Protein Albumin Urine Color Yellow Urine Clarity Clear Urine pH 5.5 Ur Specific [place] 1.015 Urine Protein Trace Urine Ketones Negative Urine Blood Small H Urine Nitrite Negative Urine Bilirubin Negative Urine Urobilinogen 0.2 Ur Leukocyte Esterase Negative Urine RBC 3-5 H Urine WBC Negative Ur Epithelial Cells Rare Urine Crystals Negative Urine Bacteria Rare Urine Casts Negative Urine Mucus Negative Ur Culture Indicated? No Urine Glucose 250 H COVID-19 Source SARS-CoV-2 (PCR) Influenza Type A (PCR) Influenza Type B (PCR) RSV (PCR) Add-On Test Request Last Vital Signs Pulse 92 H 04/17/25 02:11 Resp 23 04/17/25 02:11 BP 161/52 H 04/17/25 04:07 Pulse Ox 97 04/17/25 05:50 Time Spent Time spent with Patient: 40-54 minutes Time was spent: preparing to see the patient(eg.review tests), obtaining and/or reviewing separately otained hiistory, ordering medications,tests, procedures, referring, communicating with other health cna caregiver, indepentently interpreting results, counseling the patient and care coordination
--- NOTE | 2025-04-17 06:11 | W.PC.ACHO ---
Registration Status: REG ER Primary Language: Preferred Language: Tajik ED Information & Data Chief Complaint SOB 04/16/25 23:12 Triage Note PT states that she is SOB 04/16/25 21:57 for 2-3 days. PT denies CP at this time Medical / Surgical History (Last Reviewed 12/17/24 @ 13:03 by Sarah Melendez, RN) Palpable mass of lower back Lumbar spinal stenosis Low back pain Spinal stenosis Paroxysmal atrial fibrillation Atherosclerotic cardiovascular disease Aortic stenosis Acute cholecystitis BP (high blood pressure) Degenerative joint disease of right knee Closed fracture of left distal fibula (03/31/19) (Last Reviewed 12/17/24 @ 13:03 by Sarah Melendez, LYLA) H/O esophagogastroduodenoscopy (~2019) S/P colonoscopy (~2019) History of hysterectomy History of cataract surgery Most Recent Vital Signs Pulse 92 H 04/17/25 06:01 Pulse 92 H 04/17/25 06:01 Respiratory Rate 20 04/17/25 06:01 Respiratory Effort Normal, Non-Labored 04/17/25 05:00 Respiratory Depth Normal 04/17/25 03:57 Respiratory Pattern Normal 04/17/25 03:05 Blood Pressure 172/48 H 04/17/25 06:01 Blood Pressure Mean 90 04/17/25 06:01 Blood Pressure Position Sitting 04/16/25 22:07 Pulse Oximetry 98 04/17/25 06:01 Oxygen Delivery Method Nasal Cannula 04/17/25 05:50 Oxygen Flow Rate 2 04/17/25 05:50 Fraction of Inspired Oxygen (FIO2) 30 04/17/25 00:15 Pain Level 0 04/16/25 21:57 Allergies metformin Allergy (Unknown, Unverified 04/16/25 22:04) Unknown tramadol Allergy (Unknown, Unverified 04/16/25 22:04) Unknown codeine Adverse Reaction (Mild, Verified 04/16/25 22:04) Nausea diltiazem Adverse Reaction (Mild, Verified 04/16/25 22:04) Unknown epinephrine Adverse Reaction (Mild, Verified 04/16/25 22:04) Unknown lisinopril Adverse Reaction (Mild, Verified 04/16/25 22:04) cough pollen extracts Adverse Reaction (Verified 04/16/25 22:04) Topical Irritation Precautions Isolation Standard precaution 04/16/25 22:07 Active Medications Generic Name Dose Route Start Last Admin Trade Name Priti PRN Reason Stop Dose Admin Albuterol Sulfate 15 mg/ 0 mg 04/16/25 22:30 04/16/25 22:44 Sodium Chloride 3 ml UPD 15 mg DIRECTED BASIL Administration Nitroglycerin/Dextrose 50 mg in 250 mls @ 0 mls/hr 04/16/25 22:45 04/16/25 23:38 IV 1.5 mls/hr INFUSION BASIL 1.5 mls/hr Protocol Titration As Directed Vancomycin HCl 1,200 mg/ 250 mls @ 166.6666 mls/hr 04/16/25 23:00 04/17/25 01:50 Sodium Chloride IVPB Infused Q12H BASIL Infusion Iohexol 100 ml 04/17/25 00:45 04/17/25 00:38 Omnipaque 350 Mg/Ml 100 Ml Btl IJ 05/17/25 23:59 100 ml DIRECTED BASIL Administration Sodium Chloride 50 ml 04/17/25 00:45 04/17/25 00:38 Normal Saline - Diluent 50 Ml Vial IJ 50 ml DIRECTED BASIL Administration IV IV Catheter Type [Left Peripheral IV Antecubital] IV Catheter Type [Right Wrist] Peripheral IV IV Catheter Gauge [Left 18 Antecubital] IV Catheter Gauge [Right Wrist 20 ] Diet Orders Category Date Time Status Diabetes Consistent CHO/Heart Healthy [DIET] Nutrition 04/17/25 Breakfast Active Diagnostics 04/17/25 04/17/25 04/17/25 Range/Units 05:55 04:50 03:53 WBC Pending (4.4-10.8) 10^3/uL RBC Pending (3.93-5.22) 10^6/uL Hgb Pending (11.2-15.7) g/dL Hct Pending (36.0-46.0) % MCV Pending (80-95) fL MCH Pending (27.0-33.0) pg MCHC Pending (32.0-36.0) % RDW Pending (11.7-14.6) % Plt Count Pending (130-400) 10^3/uL MPV Pending (8.0-11.0) fL Immature Gran % Pending % Neutrophils % Pending % Lymphocytes % Pending % Monocytes % Pending % Eosinophils % Pending % Basophils % Pending % Nucleated RBC % (0.0-0.3) % Absolute Neutrophils Pending (1.2-6.7) 10^3/uL Absolute Lymphocytes Pending (1.2-3.4) 10^3/uL Absolute Monocytes Pending (0.1-0.8) 10^3/uL Absolute Eosinophils Pending (0.0-0.7) 10^3/uL Absolute Basophils Pending (0.0-0.2) 10^3/uL PT (9.1-11.1) sec INR (0.9-1.1) APTT (20.6-30.2) sec D-Dimer (<500) ng/mlFEU VBG pH 7.38 (7.31-7.41) VBG pCO2 37 L (41-51) mmHg VBG pO2 107 mmHg VBG HCO3 22 L (23-28) mmol/L VBG Total CO2 21 L (24-29) mmol/L VBG O2 Saturation 99 % VBG Base Excess -4 L (-2-3) mmol/L VBG Lactate 4.0 H* (<or=2.0) mmol/L Sodium Pending (136-145) mmol/L Potassium Pending (3.5-5.1) mmol/L Chloride Pending (98-107) mmol/L Carbon Dioxide Pending (21.0-32.0) mmol/L Anion Gap Pending (3-11) mmol/L BUN Pending (7-18) mg/dL Creatinine Pending (0.55-1.02) mg/dL Est GFR (CKD-EPI 2020) Pending (mL/min/1.73m2) Glucose Pending (74-106) mg/dL Hemoglobin A1c Pending Calcium Pending (8.5-10.1) mg/dL Magnesium (1.8-2.4) mg/dL Total Bilirubin Pending (0.2-1.0) mg/dL AST Pending (15-37) U/L ALT Pending (14-59) U/L Alkaline Phosphatase Pending (46-116) U/L Troponin I 158 H* (<or=51) ng/L NT-Pro-B Natriuret Pep (<300) pg/mL Total Protein Pending (6.4-8.2) g/dL Albumin Pending (3.4-5.0) g/dL Urine Color Yellow (Yellow) Urine Clarity Clear (Clear) Urine pH 5.5 (5-8) Ur Specific [place] 1.015 (1.005-1.025) Urine Protein Trace (Neg-Trace) mg/dL Urine Ketones Negative (Negative) mg/dL Urine Blood Small H (Negative) Urine Nitrite Negative (Negative) Urine Bilirubin Negative (Negative) Urine Urobilinogen 0.2 (Up to 0.2) mg/dL Ur Leukocyte Esterase Negative (Negative) Urine RBC 3-5 H (0-2) HPF Urine WBC Negative (0-5) HPF Ur Epithelial Cells Rare (Negative) HPF Urine Crystals Negative (Negative) HPF Urine Bacteria Rare (Negative) HPF Urine Casts Negative (Negative) LPF Urine Mucus Negative (Negative) Ur Culture Indicated? No Urine Glucose 250 H (Negative) mg/dL COVID-19 Source SARS-CoV-2 (PCR) (Negative) Influenza Type A (PCR) (Negative) Influenza Type B (PCR) (Negative) RSV (PCR) (Negative) Add-On Test Request 04/17/25 04/17/25 04/16/25 Range/Units 01:10 00:12 23:20 WBC (4.4-10.8) 10^3/uL RBC (3.93-5.22) 10^6/uL Hgb (11.2-15.7) g/dL Hct (36.0-46.0) % MCV (80-95) fL MCH (27.0-33.0) pg MCHC (32.0-36.0) % RDW (11.7-14.6) % Plt Count (130-400) 10^3/uL MPV (8.0-11.0) fL Immature Gran % % Neutrophils % % Lymphocytes % % Monocytes % % Eosinophils % % Basophils % % Nucleated RBC % (0.0-0.3) % Absolute Neutrophils (1.2-6.7) 10^3/uL Absolute Lymphocytes (1.2-3.4) 10^3/uL Absolute Monocytes (0.1-0.8) 10^3/uL Absolute Eosinophils (0.0-0.7) 10^3/uL Absolute Basophils (0.0-0.2) 10^3/uL PT (9.1-11.1) sec INR (0.9-1.1) APTT (20.6-30.2) sec D-Dimer (<500) ng/mlFEU VBG pH 7.30 L (7.31-7.41) VBG pCO2 47 (41-51) mmHg VBG pO2 42 mmHg VBG HCO3 23 (23-28) mmol/L VBG Total CO2 22 L (24-29) mmol/L VBG O2 Saturation 69 % VBG Base Excess -4 L (-2-3) mmol/L VBG Lactate 2.9 H* (<or=2.0) mmol/L Sodium (136-145) mmol/L Potassium (3.5-5.1) mmol/L Chloride (98-107) mmol/L Carbon Dioxide (21.0-32.0) mmol/L Anion Gap (3-11) mmol/L BUN (7-18) mg/dL Creatinine (0.55-1.02) mg/dL Est GFR (CKD-EPI 2020) (mL/min/1.73m2) Glucose (74-106) mg/dL Hemoglobin A1c Calcium (8.5-10.1) mg/dL Magnesium (1.8-2.4) mg/dL Total Bilirubin (0.2-1.0) mg/dL AST (15-37) U/L ALT (14-59) U/L Alkaline Phosphatase (46-116) U/L Troponin I 108 H* (<or=51) ng/L NT-Pro-B Natriuret Pep (<300) pg/mL Total Protein (6.4-8.2) g/dL Albumin (3.4-5.0) g/dL Urine Color (Yellow) Urine Clarity (Clear) Urine pH (5-8) Ur Specific [place] (1.005-1.025) Urine Protein (Neg-Trace) mg/dL Urine Ketones (Negative) mg/dL Urine Blood (Negative) Urine Nitrite (Negative) Urine Bilirubin (Negative) Urine Urobilinogen (Up to 0.2) mg/dL Ur Leukocyte Esterase (Negative) Urine RBC (0-2) HPF Urine WBC (0-5) HPF Ur Epithelial Cells (Negative) HPF Urine Crystals (Negative) HPF Urine Bacteria (Negative) HPF Urine Casts (Negative) LPF Urine Mucus (Negative) Ur Culture Indicated? Urine Glucose (Negative) mg/dL COVID-19 Source Nasopharynx SARS-CoV-2 (PCR) Negative (Negative) Influenza Type A (PCR) Negative (Negative) Influenza Type B (PCR) Negative (Negative) RSV (PCR) Negative (Negative) Add-On Test Request 04/16/25 04/16/25 04/16/25 Range/Units 23:11 23:06 22:10 WBC 11.23 H (4.4-10.8) 10^3/uL RBC 3.58 L (3.93-5.22) 10^6/uL Hgb 8.6 L (11.2-15.7) g/dL Hct 29.3 L (36.0-46.0) % MCV 82 (80-95) fL MCH 24.0 L (27.0-33.0) pg MCHC 29.4 L (32.0-36.0) % RDW 16.8 H (11.7-14.6) % Plt Count 285 (130-400) 10^3/uL MPV 10.3 (8.0-11.0) fL Immature Gran % 0.4 % Neutrophils % 58.4 % Lymphocytes % 28.0 % Monocytes % 10.4 % Eosinophils % 2.1 % Basophils % 0.7 % Nucleated RBC % 0.0 (0.0-0.3) % Absolute Neutrophils 6.56 (1.2-6.7) 10^3/uL Absolute Lymphocytes 3.14 (1.2-3.4) 10^3/uL Absolute Monocytes 1.17 H (0.1-0.8) 10^3/uL Absolute Eosinophils 0.24 (0.0-0.7) 10^3/uL Absolute Basophils 0.08 (0.0-0.2) 10^3/uL PT 11.7 H (9.1-11.1) sec INR 1.2 H (0.9-1.1) APTT 20.9 (20.6-30.2) sec D-Dimer 1026 H (<500) ng/mlFEU VBG pH 7.33 (7.31-7.41) VBG pCO2 41 (41-51) mmHg VBG pO2 47 mmHg VBG HCO3 22 L (23-28) mmol/L VBG Total CO2 21 L (24-29) mmol/L VBG O2 Saturation 78 % VBG Base Excess -4 L (-2-3) mmol/L VBG Lactate 3.4 H* (<or=2.0) mmol/L Sodium 142 (136-145) mmol/L Potassium 4.1 (3.5-5.1) mmol/L Chloride 105 (98-107) mmol/L Carbon Dioxide 22.8 (21.0-32.0) mmol/L Anion Gap 14.2 H (3-11) mmol/L BUN 16 (7-18) mg/dL Creatinine 0.9 (0.55-1.02) mg/dL Est GFR (CKD-EPI 2020) 63.04 (mL/min/1.73m2) Glucose 238 H (74-106) mg/dL Hemoglobin A1c Calcium 8.9 (8.5-10.1) mg/dL Magnesium 2.1 (1.8-2.4) mg/dL Total Bilirubin 1.2 H (0.2-1.0) mg/dL AST 43 H (15-37) U/L ALT 32 (14-59) U/L Alkaline Phosphatase 146 H (46-116) U/L Troponin I 48 39 (<or=51) ng/L NT-Pro-B Natriuret Pep 597 H (<300) pg/mL Total Protein 7.5 (6.4-8.2) g/dL Albumin 3.6 (3.4-5.0) g/dL Urine Color (Yellow) Urine Clarity (Clear) Urine pH (5-8) Ur Specific [place] (1.005-1.025) Urine Protein (Neg-Trace) mg/dL Urine Ketones (Negative) mg/dL Urine Blood (Negative) Urine Nitrite (Negative) Urine Bilirubin (Negative) Urine Urobilinogen (Up to 0.2) mg/dL Ur Leukocyte Esterase (Negative) Urine RBC (0-2) HPF Urine WBC (0-5) HPF Ur Epithelial Cells (Negative) HPF Urine Crystals (Negative) HPF Urine Bacteria (Negative) HPF Urine Casts (Negative) LPF Urine Mucus (Negative) Ur Culture Indicated? Urine Glucose (Negative) mg/dL COVID-19 Source SARS-CoV-2 (PCR) (Negative) Influenza Type A (PCR) (Negative) Influenza Type B (PCR) (Negative) RSV (PCR) (Negative) Add-On Test Request DONE 04/16/25 22:23 Blood Culture - Pending Blood 04/16/25 22:10 Blood Culture - Pending Blood Intake and Output - 24 Hour Total 04/16/25 21:53 thru 04/17/25 05:56 Intake Total 402.975 Output Total 1075 Balance -672.025 Weight 81.647 kg Intake: IV 302.975 Oral 100 Output: Urine 1075 Other: Urine Color Yellow Urine Appearance Clear Urine Odor None Comment large amount of urine Falls Risk Assessment History of Falls Previous History 04/17/25 04:08 Contributing Factors Unstable,Impairments, 04/17/25 04:08 Incontinence Ambulatory Aids Uses ambulatory device + 04/17/25 04:08 Tubes/Lines With any additional score 04/17/25 04:08 Gait Evaluation No gait disturbance 04/17/25 04:08 Cognition No cognitive impairment 04/17/25 04:08 Fall Total Score 74 04/17/25 04:08 Level of Risk High Risk 04/17/25 04:08 v v v v v v v v v Sending and/or Receiving Nurses: Please use comment section below to note any information pertinent to the patient hand-off not included above. Information / Comments: Report taken from ED RNDulce Maria. Patient came in with severe SOB for 2-3 days. AO X 3, w/ some episodes of forgetful. Has productive cough. with PE +1 on lower extremities. Patient was given Lasi 40 mg and voided 1500. Was put on Bipap r/t to sleep apnea. Now on 2L of O2 NC. Report received from:
[2025-04-17 07:02] LABS: Abs Immature Grans 0.06 10^3/uL (0.0-0.06); HCT 25.5 % (36.0-46.0); HGB 7.7 g/dL (11.2-15.7); Immature Grans % 0.5 %; MCH 24.1 pg (27.0-33.0); MCHC 30.2 % (32.0-36.0); MCV 80 fL (80-95); MPV 9.8 fL (8.0-11.0); Platelet Count 200 10^3/uL (130-400); RBC 3.20 10^6/uL (3.93-5.22); RDW 17.0 % (11.7-14.6); RDW-SD 48.5 fL; WBC 11.53 10^3/uL (4.4-10.8)
[2025-04-17 07:35] LABS: ALT 33 U/L (14-59); AST 30 U/L (15-37); Albumin 3.4 g/dL (3.4-5.0); Alkaline Phosphatase 125 U/L (46-116); BUN 20 mg/dL (7-18); Bilirubin, Total 1.0 mg/dL (0.2-1.0); CO2 19.9 mmol/L (21.0-32.0); Calcium 8.3 mg/dL (8.5-10.1); Chloride 102 mmol/L (98-107); Estimated GFR 37.10 (mL/min/1.73m2); Glucose 469 mg/dL (74-106); Total Protein 7.0 g/dL (6.4-8.2)
[2025-04-17 07:42] LABS: Anion Gap 18.1 mmol/L (3-11); Sodium 140 mmol/L (136-145)
[2025-04-17 07:48] LABS: Potassium 3.1 mmol/L (3.5-5.1)
[2025-04-17 08:33] LABS: Hemoglobin A1C 8.8 % (<5.7)
[2025-04-17] MEDS: Heparin 5,000 UNITS/ML VIAL 5000 UNITS SC ×2 (08:41→21:52)
[2025-04-17] MEDS: Insulin Glargine 300 UNITS/3 ML PEN 10 UNITS SC (08:41)
[2025-04-17] MEDS: Amiodarone 200 MG TAB PO ×2 (08:41→19:57)
[2025-04-17] MEDS: Insulin Aspart 300 UNITS/3 ML PEN SC ×4 (08:42→21:50)
[2025-04-17] MEDS: Normal Saline Flush 10 ML SYR IVP (08:43)
[2025-04-17 09:14] LABS: Lab Add On Test DONE
[2025-04-17 09:39] LABS: Troponin I 180 ng/L (<or=51)
--- NOTE | 2025-04-17 10:02 | IN_ITS ---
PT Notes Visit Reasons: pulmonary edema Physical Therapy Inpatient Initial Evaluation Date: 04/17/2025 Referring Doctor: Dr Peñaloza PT Orders: PT CONSULT: PT Evaluation Precautions: Standard, monitor SaO2, Patient Profile/Admitting Diagnosis: Shannan is an 84 yo female with h/o CHF and TAVR who presented to the ED on evening of 04/16/2025 with increased SOB, cough, runny nose and inability to get any air. In ED pt with Hypertensive crisis, elevated HR/ BP and reduced SaO2 80 and cyanosis. Labs revealed elevated WBC/blood sugar and lactate, low H/H. Pt placed on BiPAP initially able to wean to 2L/Min via NC. EKG: tachycardia and RBBB. Pt negative Covid/RSV/Flu. Troponins elevated x3 NSTEMI. CTA: CHF, cardiomegaly, moderate left LL and small RLL pleural effusion, mild pulmonary edema, atelectasis. [facility] Cardiology Consulted and recommended treat for CHF , ECHO in morning and Outpt Stress Test. Pt continues with trending upward troponins this AM PMHX: Microcytic anemia (Chronic) Uncontrolled diabetes mellitus with hyperglycemia (Chronic) Acute on chronic heart failure with preserved ejection fraction (HFpEF) (Acute) Acute pulmonary edema with congestive heart failure (Acute) Acute non-ST elevation myocardial infarction (NSTEMI) (Acute) Hypertensive crisis (Acute) Heart failure (Acute) Acute hypoxemic respiratory failure (Acute) Lumbar spondylosis (Acute) Mechanical low back pain (Acute) Exposure to COVID-19 virus (Acute ~04/12/23) Acute on chronic diastolic CHF (congestive heart failure), NYHA class 2 (Chronic) Cervical disc herniation (Chronic) Diabetes mellitus (Chronic) S/P TAVR (transcatheter aortic valve replacement) (Chronic) Anemia (Acute) Medical History Palpable mass of lower back Lumbar spinal stenosis Low back pain Spinal stenosis Paroxysmal atrial fibrillation Atherosclerotic cardiovascular disease Aortic stenosis Acute cholecystitis BP (high blood pressure) Degenerative joint disease of right knee Closed fracture of left distal fibula (03/31/19) Surgical History H/O esophagogastroduodenoscopy (~2019) S/P colonoscopy (~2019) History of hysterectomy History of cataract surgery Social History/Home Situation: Pt resides alone in a first floor apt with no steps to enter. Pt independent ambulation, ADL ,Cooking, shopping, driving. Equipment Owned/DME: 4WW( given to her, FWW Subjective: Pt reports she is feeling so much better than last night. She states she could not get air in when she was at home. She reports she is in an accessible home. She states se uses a 4ww at all times. Objective: [] General Observation: female in no acute distress seated at EOB with LLE in long sitting, telemetry in place, minimal edema BLE L>R, No SOB noted,Pt attempting to get her phone to turn on. Mental Status: Alert and oriented x 4, able to follow instructions, cooperative and agreeable to participate Pain: constant , excruciating low back slightly to the left of spine. non radiating. stabbing at times. Vitals: SaO2 96% on RA, HR 103, ROM: [] Right Upper Extremity: Shoulder flexion 98 degrees AAROM, abduction 95 degrees AAROM, ER 80 IR to L3, Elbow wrist and hand WNL Left Upper Extremity: WNL BLE: WNL Strength: [] Right Upper Extremity: shoulder 3-/5, elbow 4/5, hand grasp strong Left Upper Extremity: 5/5 Right Lower Extremity: grossly hip 4/5 , knee 5/5 ankle 5/5 Left Lower Extremity: grossly hip 4/5 knee 5/5, ankle 5/5 Sensation: intact throughout Bed Mobility/Transfers: [] Supine to sit Independent Sit to stand Independent Stand to sit Independent Bed to chair Independent with wheeled walker Gait: amb with 4ww SBA. 300 feet with 1 sit rest. Pt able to carry conversation while ambulating. No s/s of PAUL/SOB. pt with reciprocal pattern. Balance: [] Static Sitting: Normal Dynamic Sitting: Good Static Standing: Normal Dynamic Standing: Good Special Tests: [] Mobility Limitations Standardized Measure [] [facility] AM-PAC 6 clicks Basic Mobility Inpatient Short Form: [] Raw Score:24 CMS Score: 0 % deficit Informed Consent/Education: Patient instructed in purpose of PT consult. Assessment: Patient is an 84 yo female who presents with clinical signs and symptoms consistent with current/admitting diagnoses including BLE edema L>R, slight PAUL, and impaired functional activity tolerance . Despite deficits, pt is at baseline level of functional mobility with use of 4WW. Anticipate pt to return to home without need for further PT services. She declines exercises for her chronic LBP. The pain does not appear to limit her ability to perform daily tasks Patient is assessed as a low complexity based on the following: History: 84-year-old female with impairment level findings, functional limitations, and past medical history as indicated above Examination: Demonstrable impairment in strength, balance, and mobility level with underlying impairments and functional limitations as documented above Presentation: evolving Decision Making: low Goals: 1. independent with ambulation > 300 feet with 4WW without sit rest without S/S of dyspnea, chest pain, maintaining SaO2 >90% on RA 2. Independent with HEP for strengthening B hips. Plan of Care/Treatment Plan: PT evaluation and 1-2 treatment session only for functional mobility training using recommended AD and for HEP instruction. DISCHARGE RECOMMENDATIONS: Home with no further services. Pt may benefit from further CHF education. If pt continues with Cardiac s/s pt may benefit from Cardiac Rehab program. TREATMENT CODE/TIME: [id number]/ [id number] Thank you for the opportunity to participate in the care of this patient. Katerin Cotter,PT [facility]
--- NOTE | 2025-04-17 10:30 | DI.US_ITS ---
APPROVED REPORT EXAM: Comprehensive 2D, Doppler, and color-flow Echocardiogram Patient Location: In-Patient Room/Bed: [facility] Data Security Analyst: Justin Florez RDCS (AE) Indications: Pulmonary edema, hx TAVR, hx stent Other Information Study Quality: Adequate Conclusion Normal left ventricular wall thickness and chamber size. Ejection fraction is 55%. Wall motion is normal Normal right ventricular size and function Moderately enlarged left atrium. Normal right atrial size There is a prior transcatheter aortic valve replacement. Mean gradient is 11 mmHg. There is no aortic regurgitation Severe mitral annular calcification. Mean gradient across the mitral valve is 11 mmHg. There is mild mitral regurgitation Mild to moderate tricuspid regurgitation. Estimated right ventricular systolic pressure is 53 mmHg Compared to an echo from 2021 at [facility], gradient across the mitral valve is increased from 7 to 11 mmHg. Right ventricular systolic pressure has increased from 45-53 Wall motion Left Ventricle Left ventricle is moderately dilated. The left ventricular systolic function is normal. The left ventricular ejection fraction is within the normal range. There is normal left ventricular wall thickness. There is normal LV segmental wall motion. There is no ventricular septal defect visualized. LVEF is 55-%. Right Ventricle The right ventricle is normal size. The right ventricular systolic function is normal. Atria Left atrium is moderately dilated. The right atrium size is normal. The interatrial septum is intact with no evidence for an atrial septal defect. Aortic Valve Pt has TAVR. Mean gradient is 10 mmHg No aortic regurgitation is present. Mitral Valve Severe mitral annular calcification. Moderate to severe mitral stenosis. Mean gradient is 11 mmHg Mild mitral regurgitation. Tricuspid Valve The tricuspid valve is normal in structure. There is no tricuspid valve stenosis. Mild to moderate tricuspid regurgitation. The RVSP is 53.1 mmHg. Pulmonic Valve The pulmonary valve is normal in structure. There is no pulmonic valvular stenosis. There is no pulmonic valvular regurgitation. Great Vessels The aortic root is normal in size. The ascending aorta is normal in size. IVC is normal in size and collapses >50% with inspiration. Pericardium There is no pericardial effusion. 2D Dimensions IVSD d PLAX 0.81 cm F: 0.6-1.0 Ao Root d 2.76 cm F: 2.7 - 3.3 LVPW d PLAX 0.84 cm F: 0.6 - 1.0 Ao Asc Diam d 2.84 cm F: 2.3 - 3.1 LVID d PLAX 6.21 cm F: 3.8 - 5.2 LVDs 4.37 cm F: 2.2 - 3.5 LV EF Teichholz 55.7 % FS 29.61 % LV EDV (Teich) 194.7 mL LV ESV (Teich) 86.3 mL Stroke Vol Index (Teich) 59.22 M-Mode TAPSE 2.68 cm (M/F) >1.7 Auto EF LV EDV A4C 121.6 mL LV EDV A2C 130.1 mL LV EDV BP 130.0 mL LV ESV A4C 54.3 mL LV ESV A2C 58.5 mL LV ESV BP 56.2 mL LVEF(%) A4C 55.3 % LVEF(%) A2C 55.1 % LVEF(%) BP 56.7 % LV SV A4C 67.3 ml LV SV A2C 71.6 ml LV SV BP 73.7 ml LV CO A4C 6.0 L/min LV CO A2C 6.3 L/min LV CO BP 6.2 L/min HR A4C 89.33 BPM HR A2C 88.46 BPM LV EDV Index (BP) LA Volume LA Length A4C 5.9 cm LA Length A2C 5.3 cm LA Area A4C s 20.97 cm2 LA Area A2C s 16.43 cm2 LA Vol A4C A-L 63.66 mL LA Vol A2C A-L 43.62 mL LA Vol Biplane A-L 55.7 mL LA Vol/BSA A4C A-L LA Vol/BSA A2C A-L LA Vol/BSA BP A-L 30.4 mL/m2 LA Vol A4C MOD 61.5 mL LA Vol A2C MOD 39.5 mL LA Vol BP MOD 51.5 mL RA Volume RA Area A4C 10.6 cm2 RA ESV A4C (A-L) 23.5mL RA Vol/BSA A4C A-L RA Length A4C 4.0 cm RA ESV A4C (MOD) 21.7mL LV Diastology MV E' medial 0.043 (>0.07 m/s) MV E Vmax 2.70 (0.4-1.3 m/s) MV E/E' MED 62.90 (<14) MV A Vmax 2.65 (0.4-1.3 m/s) MV E' lateral 0.077 (>0.1 m/s) E/A Ratio 1.0 MV E/E' LAT 35.07 (<14) MV E' Average 0.060 m/s MV E/E'(average) 45.03 Aortic Valve AoV Vmax 2.18 m/s LVOT Vmax 1.44 m/s AoV Peak Grad 19.0 mmHg LVOT Peak Grad 8.3 mmHg AoV Area (Vmax) 1.18 cm2 LVOT VTI 0.282 m AoV VTI 0.403 m LVOT Mean Grad 5.1 mmHg AoV Mean Atilio. 1.54 m/s LVOT SV 50.20 mL AoV Mean Grad 10.6 mmHg LVOT Diam s 1.50 cm AoV Area (VTI) 1.25 cm2 AV Regurg Peak Gr. 19.04 mmHg Velocity Ratio 0.66 Mitral Valve MV DT 179 (160-240 msec) MV Vmax TIPS 2.21 m/s MV Mean Grad 11.0 (<2mmHg) MV VTI 0.587 m Pulmonary Valve PV Vmax 1.58 (0.5-1.5 m/s) RVOT Vmax 0.93 m/s PV Peak Grad 10.0 mmHg RVOT Peak Gr. 3.5 mmHg PV Mean Atilio 1.04 m/s RVOT VTI 0.153 m PV Mean Grad 5.1 mmHg RVOT Mean Gr. 2.0 mmHg Tricuspid Valve RA Pressure 3.00 mmHg TR Vmax 3.54 m/s TR Peak Grad 50.1 mmHg RVSP (TR) 53.1 mmHg
[2025-04-17 11:58] LABS: Vancomycin, Random 8.0 ug/mL
[2025-04-17] MEDS: Potassium Chloride 20 MEQ TABCR 40 MEQ PO (12:00)
[2025-04-17] MEDS: Furosemide 40 MG TAB PO (12:08)
--- NOTE | 2025-04-17 12:55 | PGE_ITS ---
Date of Service Date of service: 04/17/25 Time of Service: 12:55 Assessment and Plan Assessment and plan (1) Acute pulmonary edema with congestive heart failure: Status: Acute Assessment and plan: Flash pulmonary edema responsive to NIPPV and loop diuretic Known diastolic HF, CAD with stent, aortic valve replacement She is off bipap [place] [facility] [place] echo and GDMT, outpatient stress Echo : EF 55%, no WMA Continue home losartan 100 No chest pain Demand - trop 39 to 205 no delta yet repeat at 2000 Continues to have crackles bases bilat and prod sputum - repeat lasix at 1900 (2) Hypertensive crisis: Status: Acute Assessment and plan: BP 127/59 Continue ARB as above (3) Acute hypoxemic respiratory failure: Status: Acute Assessment and plan: Initial SpO2 mid-80's, improved with diuresis, bipap Now on NC2L Not on home O2 Anticipate additional diuresis (4) Acute on chronic heart failure with preserved ejection fraction (HFpEF): Status: Acute Assessment and plan: EF 55% see above (5) Acute non-ST elevation myocardial infarction (NSTEMI): Status: Acute Assessment and plan: Troponin elevation likely demand ischemia 39 to 205 (6) S/P TAVR (transcatheter aortic valve replacement): Status: Chronic Assessment and plan: Noted history (7) Uncontrolled diabetes mellitus with hyperglycemia: Status: Chronic Assessment and plan: A1c 8.8 Patient not on insulin, reportedly due to cost of medications Home regimen pioglitazone, held Increased basal insulin 20u QAM and medium correctional Ordered DM education Diatectic diet (8) Microcytic anemia: Status: Chronic Assessment and plan: Chronic anemia noted in the record Hemoglobin level is concerning - ordered iron panel still pending 7.7 this am up to 7.8 without intervention this annette. Subjective Subjective Patient reports: no new complaints, feels better, pain is less, tolerating liquids well, tolerating a regular diet, voiding w/o difficulty, bowel movement, shortness of breath and afebrile; denies flatus, diarrhea or nausea Interval history since last seen: Continues to have some shortness of breath. Patient's family in visiting. Discussion regarding her moving in with her son and DIL and renting out her place, potentially selling it eventually. She is in good spirits. Patient reports she had some swelling in her legs earlier in the week. Son concerned she is having an allergic rxn to something - she has no rash, no hives, not itchy. Exam Narrative Exam Narrative: General: Elderly female, no acute distress HEENT: Normocephalic, atraumatic, puffy face Cardiovascular: Mild tachycardia (low 90s), regular rhythm, no murmur, not in atrial fibrillation on monitor Respiratory: Adequate air movement, no increased work of breathing on RA, crackles bilat bases, no wheezing Abdomen: Soft, non-tender, non-distended, positive bowel sounds Musculoskeletal: Voluntary movement in all four extremities, no lower extremity edema Neurological: Awake, alert, oriented, no focal deficits Skin: no rash, no hives Objective Last Vital Signs Temp 36.1 C L 04/17/25 07:17 Pulse 92 H 04/17/25 07:17 Resp 20 04/17/25 07:17 BP 137/106 H 04/17/25 07:17 Pulse Ox 97 04/17/25 07:35 Laboratory Results - last 24 hr 04/16/25 04/16/25 04/16/25 22:10 23:06 23:11 WBC 11.23 H RBC 3.58 L Hgb 8.6 L Hct 29.3 L MCV 82 MCH 24.0 L MCHC 29.4 L RDW 16.8 H Plt Count 285 MPV 10.3 Immature Gran % 0.4 Neutrophils % 58.4 Lymphocytes % 28.0 Monocytes % 10.4 Eosinophils % 2.1 Basophils % 0.7 Nucleated RBC % 0.0 Absolute Neutrophils 6.56 Absolute Lymphocytes 3.14 Absolute Monocytes 1.17 H Absolute Eosinophils 0.24 Absolute Basophils 0.08 PT 11.7 H INR 1.2 H APTT 20.9 D-Dimer 1026 H VBG pH 7.33 VBG pCO2 41 VBG pO2 47 VBG HCO3 22 L VBG Total CO2 21 L VBG O2 Saturation 78 VBG Base Excess -4 L VBG Lactate 3.4 H* Sodium 142 Potassium 4.1 Chloride 105 Carbon Dioxide 22.8 Anion Gap 14.2 H BUN 16 Creatinine 0.9 Est GFR (CKD-EPI 2020) 63.04 Glucose 238 H Hemoglobin A1c Calcium 8.9 Magnesium 2.1 Total Bilirubin 1.2 H AST 43 H ALT 32 Alkaline Phosphatase 146 H Troponin I 39 48 NT-Pro-B Natriuret Pep 597 H Total Protein 7.5 Albumin 3.6 Urine Color Urine Clarity Urine pH Ur Specific Wiggins Urine Protein Urine Ketones Urine Blood Urine Nitrite Urine Bilirubin Urine Urobilinogen Ur Leukocyte Esterase Urine RBC Urine WBC Ur Epithelial Cells Urine Crystals Urine Bacteria Urine Casts Urine Mucus Ur Culture Indicated? Urine Glucose Random Vancomycin COVID-19 Source SARS-CoV-2 (PCR) Influenza Type A (PCR) Influenza Type B (PCR) RSV (PCR) Add-On Test Request DONE 04/16/25 04/17/25 04/17/25 23:20 00:12 01:10 WBC RBC Hgb Hct MCV MCH MCHC RDW Plt Count MPV Immature Gran % Neutrophils % Lymphocytes % Monocytes % Eosinophils % Basophils % Nucleated RBC % Absolute Neutrophils Absolute Lymphocytes Absolute Monocytes Absolute Eosinophils Absolute Basophils PT INR APTT D-Dimer VBG pH 7.30 L VBG pCO2 47 VBG pO2 42 VBG HCO3 23 VBG Total CO2 22 L VBG O2 Saturation 69 VBG Base Excess -4 L VBG Lactate 2.9 H* Sodium Potassium Chloride Carbon Dioxide Anion Gap BUN Creatinine Est GFR (CKD-EPI 2020) Glucose Hemoglobin A1c Calcium Magnesium Total Bilirubin AST ALT Alkaline Phosphatase Troponin I 108 H* NT-Pro-B Natriuret Pep Total Protein Albumin Urine Color Urine Clarity Urine pH Ur Specific Wiggins Urine Protein Urine Ketones Urine Blood Urine Nitrite Urine Bilirubin Urine Urobilinogen Ur Leukocyte Esterase Urine RBC Urine WBC Ur Epithelial Cells Urine Crystals Urine Bacteria Urine Casts Urine Mucus Ur Culture Indicated? Urine Glucose Random Vancomycin COVID-19 Source Nasopharynx SARS-CoV-2 (PCR) Negative Influenza Type A (PCR) Negative Influenza Type B (PCR) Negative RSV (PCR) Negative Add-On Test Request 04/17/25 04/17/25 04/17/25 03:53 04:50 06:55 WBC 11.53 H RBC 3.20 L Hgb 7.7 L Hct 25.5 L MCV 80 MCH 24.1 L MCHC 30.2 L RDW 17.0 H Plt Count 200 MPV 9.8 Immature Gran % 0.5 Neutrophils % 95.7 Lymphocytes % 2.3 Monocytes % 1.3 Eosinophils % 0.0 Basophils % 0.2 Nucleated RBC % 0.0 Absolute Neutrophils 11.03 H Absolute Lymphocytes 0.27 L Absolute Monocytes 0.15 Absolute Eosinophils 0.00 Absolute Basophils 0.02 PT INR APTT D-Dimer VBG pH 7.38 VBG pCO2 37 L VBG pO2 107 VBG HCO3 22 L VBG Total CO2 21 L VBG O2 Saturation 99 VBG Base Excess -4 L VBG Lactate 4.0 H* Sodium 140 Potassium 3.1 L D Chloride 102 Carbon Dioxide 19.9 L Anion Gap 18.1 H BUN 20 H Creatinine 1.4 H Est GFR (CKD-EPI 2020) 37.10 Glucose 469 H Hemoglobin A1c 8.8 H Calcium 8.3 L Magnesium Total Bilirubin 1.0 AST 30 ALT 33 Alkaline Phosphatase 125 H Troponin I 158 H* 180 H* NT-Pro-B Natriuret Pep Total Protein 7.0 Albumin 3.4 Urine Color Yellow Urine Clarity Clear Urine pH 5.5 Ur Specific Wiggins 1.015 Urine Protein Trace Urine Ketones Negative Urine Blood Small H Urine Nitrite Negative Urine Bilirubin Negative Urine Urobilinogen 0.2 Ur Leukocyte Esterase Negative Urine RBC 3-5 H Urine WBC Negative Ur Epithelial Cells Rare Urine Crystals Negative Urine Bacteria Rare Urine Casts Negative Urine Mucus Negative Ur Culture Indicated? No Urine Glucose 250 H Random Vancomycin COVID-19 Source SARS-CoV-2 (PCR) Influenza Type A (PCR) Influenza Type B (PCR) RSV (PCR) Add-On Test Request 04/17/25 04/17/25 09:13 11:35 WBC RBC Hgb Hct MCV MCH MCHC RDW Plt Count MPV Immature Gran % Neutrophils % Lymphocytes % Monocytes % Eosinophils % Basophils % Nucleated RBC % Absolute Neutrophils Absolute Lymphocytes Absolute Monocytes Absolute Eosinophils Absolute Basophils PT INR APTT D-Dimer VBG pH VBG pCO2 VBG pO2 VBG HCO3 VBG Total CO2 VBG O2 Saturation VBG Base Excess VBG Lactate Sodium Potassium Chloride Carbon Dioxide Anion Gap BUN Creatinine Est GFR (CKD-EPI 2020) Glucose Hemoglobin A1c Calcium Magnesium Total Bilirubin AST ALT Alkaline Phosphatase Troponin I NT-Pro-B Natriuret Pep Total Protein Albumin Urine Color Urine Clarity Urine pH Ur Specific Wiggins Urine Protein Urine Ketones Urine Blood Urine Nitrite Urine Bilirubin Urine Urobilinogen Ur Leukocyte Esterase Urine RBC Urine WBC Ur Epithelial Cells Urine Crystals Urine Bacteria Urine Casts Urine Mucus Ur Culture Indicated? Urine Glucose Random Vancomycin 8.0 COVID-19 Source SARS-CoV-2 (PCR) Influenza Type A (PCR) Influenza Type B (PCR) RSV (PCR) Add-On Test Request DONE Time Spent with Patient Time Spent with Patient: 25-34 minutes Time was spent: preparing to see the patient(eg.review tests), ordering medications,tests, procedures, referring, communicating with other health palliative care coordinator, indepentently interpreting results, counseling the patient and care coordination
[2025-04-17 13:45] LABS: Troponin I 189 ng/L (<or=51)
--- NOTE | 2025-04-17 14:44 | PT.INTREAT ---
PT Notes Visit Reasons: pulmonary edema Date: 04/17/2025 PRECAUTIONS: Fall. Standard, Activity as tolerated. SUBJECTIVE: Pt sitting on EOB when approached for therapy this afternoon. agreeable to participating with therapy session. ? PAIN: non reported VITALS: Monitored by nursing Therapeutic Activities 61111: Direct one-on-one instruction in dynamic activities to improve functional performance. ?? BED MOBILITY/TRANSFERS? Rolling L/R: independent Supine-sit: ?independent? Sit-supine: ?independent ? Sit-stand: ? independent ? Stand-sit: ??independent ? Bed-Chair:? ?independent ? Chair-bed: independent ? Provided skilled cues and instruction on performance and technique throughout. Gait Training 47404: Direct one-on-one instruction and skilled instruction in: Employing an assistive device Movement sequencing Turning and movement with proper form Provided verbal cues for equipment management and technique Provided instruction in gait pattern Patient education regarding pacing and breathing techniques to maximize activity tolerance? GAIT? Assistive Device: ?? 4WW ? Weight bearing: FWB Assist: ? supervision? Distance:?? 300'? Deviation: ? ?unremarkable ? Therapeutic Exercises 97353: Direct one-on-one instruction in therapeutic exercises to develop strength, endurance, range of motion and flexibility. Exercises Access Code: [email or web address] URL: [email or web address] Date: 04/17/2025 Prepared by: Fredis Briggs Exercises - Sit to Stand with Counter Support - 2 x daily - 7 x weekly - 1 sets - 10 reps - Standing March with Counter Support - 2 x daily - 7 x weekly - 1 sets - 10 reps - Heel Raises with Counter Support - 2 x daily - 7 x weekly - 1 sets - 10 reps - Heel Toe Raises with Counter Support - 2 x daily - 7 x weekly - 1 sets - 10 reps Patient Education - Understanding Energy Conservation Provided skilled instruction in proper exercise performance Provided skilled manual cues to facilitate proper muscle recruitment and/or form: ASSESSMENT:?Pt had SOB after walking able to recover after pt took a seated rest breal, cue for DBE to help with SOB. PLAN: Continue with balance training, global strengthening and general conditioning for improved safety, mobility and activity tolerance until pt is ready for DC. TREATMENT CODE/TIME: 50642n4, 25488g3 30mins (1:50-2:20pm)
--- NOTE | 2025-04-17 15:46 | PDOC.CMIN ---
Date of service: 04/17/25 Time of Service: 11:45 Care Management Initial Assmt Initial Assessment Reason for Hospitalization: acute pulmonary edema with congestive heart failure Functional Status/Living Situation Patient Presentation: Shannan presented to the ED late last night with shortness of breath. She described the shortness of breath as so bad, that she did not even want to wait for an ambulance, she had her tenant drive her to the ED. She was found to be hypertensive, with BP as high as 252/130, 2L nc was started, but she required bipap for a short time. CXR showed pulmonary edema, as did chest CT. Shannan was sitting up in bed when CM met with her today. She was very pleasant. She was noted to have a congested sounding cough, but did state that she is feeling better than when she was first admitted. Shannan lives at home on the first floor of a 3 family, which she owns. Shannan is still driving. She will sometimes have help from family or tenants for large chores, but she is mainly independent. She does have a homemaker every 2 weeks that she pays privately for. She denies having any communtiy needs, and stated that when she can not live alone anymore, she will move in with her son. 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) Instrumental Activities of Daily Living (ADLs): Independent Medications Medication Management: No Issues/Barriers identified Physical Functioning/Mobility Assistive Device: will sometimes us a walker Advance Directives Advance Directives: Do you have an Advance Directive: Y 20, 19:52 AD On File at [facility]: Y 04/16/25, 22:20 Date Asked 04/16/25 04/16/25, 22:01 AD Date Reviewed 04/16/25 04/16/25, 22:20 COLST On File at [facility] No 04/16/25, 22:01 COLST Date Scanned Code Status Resuscitation Status Full Code Insurance Coverage/Financial Issues Insurance: Medicare Part A & B Care Team Visit Care Team Role Provider Type Bonita Gupta NP MD [facility] STAFF PHYSICIAN Regis Muller MD Primary Care Provider NON-[facility] STAFF PHYSICIAN Hannah Thakkar RDN, [facility] Other Providers [employer]ANGUAGE INSTRUCTOR Mercy Handley Other Providers OTHER Juan Miguel Hassan RDN Other Providers [employer] LANGUAGE INSTRUCTOR Sandy Aburto MD Emergency Provider [facility] STAFF PHYSICIAN Altaf Peñaloza MD Admit Provider [facility] STAFF PHYSICIAN Attending Provider Discharge Potential Discharge Needs: PCP F/U Appt and Other (? cardiology ? pulmonology) Anticipated Barriers to Discharge: None Identified Patient/Family Education Needs: Review discharge instructions, discuss Ask Me Three Transportation: Private vehicle Plan: Anticipate that Shannan will discharge home with no new services once she is medically stable. She will f/u with her PCP, and likely cardiology. Shannan will transport home with family. CM will continue to follow. Social Determinants of Health Screening Social Determinants of health last assessed in clinic: 04/17/25 Will the Patient Participate in the Screening?: Yes Do you worry about having a steady place to live?: no Problems where you live: no known problems In the past 12 months, have you had to go without electric, gas, oil or water in your home?: no 1. Within the past 12 months, we worried whether our food would run out before we got money to buy more.: Never true 2. Within the past 12 months, the food we bought just didn't last and we didn't have money to get more.: Never true Has lack of transportation kept you from medical appointments or from doing things needed for daily living?: no Has anyone in your life made you feel unsafe or unsupported?: no How hard is it for you to pay for the very basics like food, housing, medical care, and heating? Would you say it is:: Not hard at all Do you want help finding or keeping work or a job?: I do not need or want help If for any reason you need help with day-to-day activities such as bathing, preparing meals, shopping, managing finances, etc., do you get the help you need?: I don?t need any help How often do you feel lonely or isolated from those around you?: Never Do you speak a language other than [place] Sor[place] at home?: No Does the patient want assistance with any of the above?: No Health Related Social Needs Health related social needs details: not applicable. PFSH All Active Problems (Updated 04/17/25 @ 06:54 by Altaf Peñaloza MD) Microcytic anemia (Chronic) Uncontrolled diabetes mellitus with hyperglycemia (Chronic) Acute on chronic heart failure with preserved ejection fraction (HFpEF) (Acute) Acute pulmonary edema with congestive heart failure (Acute) Acute non-ST elevation myocardial infarction (NSTEMI) (Acute) Hypertensive crisis (Acute) Heart failure (Acute) Acute hypoxemic respiratory failure (Acute) Lumbar spondylosis (Acute) Mechanical low back pain (Acute) Exposure to COVID-19 virus (Acute ~04/12/23) Acute on chronic diastolic CHF (congestive heart failure), NYHA class 2 (Chronic) Cervical disc herniation (Chronic) Diabetes mellitus (Chronic) S/P TAVR (transcatheter aortic valve replacement) (Chronic) Anemia (Acute) Medical History Palpable mass of lower back Lumbar spinal stenosis Low back pain Spinal stenosis Paroxysmal atrial fibrillation Atherosclerotic cardiovascular disease Aortic stenosis Acute cholecystitis BP (high blood pressure) Degenerative joint disease of right knee Closed fracture of left distal fibula (03/31/19) Surgical History H/O esophagogastroduodenoscopy (~2019) S/P colonoscopy (~2019) History of hysterectomy History of cataract surgery Social History Smoking/Tobacco Use Status: Never Smoking risk assessment performed?: Yes Alcohol Intake: never Drug use: Never Substance use type: does not use Housing: house What type of physical activity do you participate in: additional Details: PT to start Do you feel safe at home: Yes Do you feel safe in your relationship?: Yes
--- NOTE | 2025-04-17 16:10 | RESPIRATORY ---
RT Initial Evalutation/Assessment Start: 04/17/25 15:53 Freq: .q shift and prn Status: Active Protocol: Document 04/17/25 15:59 RT.MARC (Rec: 04/17/25 16:09 RT.MARC [id number]) RT Assessment Pulmonary History Pulmonary History Other Smoking History Smoking/Tobacco Use Never Status OXYGEN HISTORY: Supplemental O2 At Rest 0 With Exertion 0 CPAP Settings N/A BIPAP Settings N/A Trilogy/AVAPS Settings N/A Current Respiratory Symptoms Current Respiratory Shortness of breath,Sputum production Symptoms Activity Activity Level Cleans, cooks, grocery shopping, outside walking alot , I'm very active Respiratory Breath Sounds Breath Sounds Clear Response No change Pulse Rate <100 Respiratory Rate <18 Respiratory Therapy 0 Score Total Assessment and Plan RT Treatment No RT treatment protocols required at this time, re- Protocol consult if change Note Pt only gets SOB when sleeping laying flat- has to sleep sitting up. Otherwise no SOB at rest or with exertion. Pt believes this hospital diagnosis her with COPD 5+ years ago but never has had PFT's. Pt scores out at 0 with no RT treatment protocols required at this time. IS instruction provided to patient and encouraged to use Q1-2 x 10 reps while awake.
[2025-04-17 16:43] LABS: HCT 25.3 % (36.0-46.0); HGB 7.8 g/dL (11.2-15.7)
[2025-04-17 17:00] LABS: Troponin I 205 ng/L (<or=51)
[2025-04-17] MEDS: Hamamelis Leaf/Glycerin 100 EACH BOX PR (17:48)
[2025-04-17] MEDS: Furosemide 40 MG/4 ML VIAL IVP (18:08)
[2025-04-17] MEDS: Losartan 50 MG TAB 100 MG PO (19:57)
[2025-04-17] MEDS: Rosuvastatin 20 MG TAB PO (19:57)
[2025-04-17] MEDS: VANCOMYCIN/WATER (PEG) 1 GM/200 ML BAG IVPB (21:52)
--- NOTE | 2025-04-17 22:55 | DI.CT_ITS ---
Exam(s) CT CHEST PE CTA EXAM: CT CHEST PE CTA CLINICAL HISTORY: hypoxia, respiratory distress, + dimer. TECHNIQUE: Imaging Protocol: CT angiography of the chest was performed using pulmonary embolus protocol. Multi planar reconstructions were performed. CONTRAST MATERIAL: Intravenous: Omnipaque 350 Contrast volume: 75 cc COMPARISON: CR,XR XR PORTABLE CHEST AP from 09/28/2024 CR,XR XR PORTABLE CHEST AP from 04/16/2025 FINDINGS: CHEST: PULMONARY ARTERIES: There are no intraluminal filling defects to suggest acute pulmonary emboli. LUNGS: Pulmonary findings are consistent with pulmonary edema and there also small-moderate size bilateral pleural effusions.. . MEDIASTINUM: There is no hilar nor mediastinal adenopathy. Nodules noted in both thyroid lobes. CARDIAC: Mild cardiomegaly. Aortic valve TAVR noted.Caliber of the thoracic aorta is within normal limits. No evidence of dissection. There is no significant shift of the interventricular septum. No IV contrast reflux into the intrahepatic IVC. PARTIALLY VISUALIZED UPPERMOST ABDOMEN: Prior cholecystectomy. No adrenal findings. OSSEOUS: No significant osseous lesions.. IMPRESSION: 1. Findings are consistent with pulmonary edema.There also small-moderate size bilateral pleural effusions. 2. Cardiomegaly. Aortic valve TAVR. 3. No evidence of pulmonary emboli. RADIATION DOSE DELIVERED: 141.76mGy.cm Total DLP DATA REPOSITORY: All CT scans at this facility are submitted to the National Radiology Data Registry (NRDR) Dose Index Registry (DIR) with the [employer] (ACR). RADIATION OPTIMIZATION: All CT scans at this facility use at least one of these dose optimization techniques: automated exposure control; mA and/or kV adjustment per patient size (includes targeted exams where dose is matched to clinical indication); or iterative reconstruction.
[2025-04-18] VITALS (7 sets, daily range): BP systolic 126–173; BP diastolic 48–74; PULSE 81–85; RESP 16–24; TEMP 36.4–37.3; O2SAT 92–96
[2025-04-18] MEDS: Pantoprazole 40 MG TABCR PO (05:30)
[2025-04-18] MEDS: Heparin 5,000 UNITS/ML VIAL 5000 UNITS SC (05:31)
[2025-04-18 07:37] LABS: Abs Immature Grans 0.11 10^3/uL (0.0-0.06); HCT 25.1 % (36.0-46.0); HGB 7.5 g/dL (11.2-15.7); Immature Grans % 0.7 %; MCH 23.8 pg (27.0-33.0); MCHC 29.9 % (32.0-36.0); MCV 80 fL (80-95); MPV 10.3 fL (8.0-11.0); Platelet Count 249 10^3/uL (130-400); RBC 3.15 10^6/uL (3.93-5.22); RDW 17.5 % (11.7-14.6); RDW-SD 50.4 fL; WBC 16.04 10^3/uL (4.4-10.8)
[2025-04-18 07:49] LABS: Magnesium 2.1 mg/dL (1.8-2.4)
[2025-04-18 07:55] LABS: ALT 40 U/L (14-59); AST 36 U/L (15-37); Albumin 3.6 g/dL (3.4-5.0); Alkaline Phosphatase 124 U/L (46-116); Anion Gap 11.2 mmol/L (3-11); BUN 42 mg/dL (7-18); Bilirubin, Total 1.0 mg/dL (0.2-1.0); CO2 26.8 mmol/L (21.0-32.0); Calcium 9.1 mg/dL (8.5-10.1); Chloride 104 mmol/L (98-107); Estimated GFR 40.55 (mL/min/1.73m2); Glucose 243 mg/dL (74-106); Potassium 4.2 mmol/L (3.5-5.1); Sodium 142 mmol/L (136-145); Total Protein 7.0 g/dL (6.4-8.2)
[2025-04-18] MEDS: Insulin Aspart 300 UNITS/3 ML PEN SC ×4 (08:03→21:45)
[2025-04-18] MEDS: Insulin Glargine 300 UNITS/3 ML PEN 20 UNITS SC (08:04)
[2025-04-18 08:06] LABS: Troponin I 159 ng/L (<or=51)
[2025-04-18] MEDS: Amiodarone 200 MG TAB PO ×2 (08:12→19:31)
[2025-04-18] MEDS: Furosemide 40 MG TAB PO (08:13)
[2025-04-18 08:28] LABS: Hypochromasia 2+
[2025-04-18 08:29] LABS: Poikilocytes 1+
--- NOTE | 2025-04-18 09:29 | PT.INTREAT ---
PT Notes Visit Reasons: pulmonary edema Date: 04/18/2025 PRECAUTIONS: Fall. Standard, Activity as tolerated. SUBJECTIVE: I have a bad back so am limited with some things ? PAIN: non reported except for LBP with stairs thus allow to perform with right up and left down and shoulder pain with presses thus avoid presses VITALS: Monitored by nursing, start of PT O2 sat 97% at RA HR 85 During and End 95% RA and HR 94 Therapeutic Activities [id number]:30min Direct one-on-one instruction in dynamic activities to improve functional performance. ?? Balance activity/Functional Activity: 15 SBA with patient to aid with dressing, washing some parts standing without holding on and some parts needing to hold on with 1 hand such as with lifitng leg to dress. BED MOBILITY/TRANSFERS? Sit-stand: with v/c for hand placement? independent,5x sit to stand 5x 25 sec ? Stand-sit: ??independent ? Provided skilled cues and instruction on performance and technique throughout. ? GAIT?Employing an assistive device/and without Movement sequencing /avoiding reaching, avoid rushing Turning and movement with proper form Provided verbal cues for equipment management and technique, cues for reaching back with hands Provided instruction in gait pattern Patient education regarding pacing and breathing techniques to maximize activity tolerance? Assistive Device: ?? 4WW ? Weight bearing: FWB Assist: ? supervision? Distance:?? 2x300'? Deviation: ? ?unremarkable ? Gait:? Assistive Device: ?0 ? Weight bearing: FWB Assist: ? CTG ? Distance:?? 4x20'? Deviation: ? reaches for furniture , WBOS somewhat unsteady without RW and more SOB? Stairs: with single rail on right side SBA step to using right up and despite cueing to go down with right she goes down with left as the proper way increased LBP. PT stairs 7 up and 4 down x1 ? Therapeutic Exercises [id number]:15' Direct one-on-one instruction in therapeutic exercises to develop strength, endurance, range of motion and flexibility. Teaching of diaphragmatic breathing PLB yet difficulty doing [id number] intermittently t/o session Access Code: [email or web address] URL: [email or web address] Date: 04/18/2025 Prepared by: Hannah Carmona Exercises - Sit to Stand with Counter Support - 2 x daily - 7 x weekly - 1 sets - 10 reps - Standing March with Counter Support - 2 x daily - 7 x weekly - 1 sets - 10 reps - Heel Raises with Counter Support - 2 x daily - 7 x weekly - 1 sets - 10 reps - Heel Toe Raises with Counter Support - 2 x daily - 7 x weekly - 1 sets - 10 reps - Standing Hip Abduction - 1 x daily - 7 x weekly - 2 sets - 5 reps - Sit to Stand with Armchair - 1 x daily - 7 x weekly - 2 sets - 5 reps - Seated Long Arc Quad - 2 x daily - 7 x weekly - 1 sets - 10 reps Patient Education Patient Education - Understanding Energy Conservation Provided skilled instruction in proper exercise performance Provided skilled manual cues to facilitate proper muscle recruitment and/or form: ASSESSMENT:?Pt had SOB after walking without AD able to recover after pt took a seated rest break, cue for DBE to help with SOB. Has hx of LBP, at baseline does one stair at a time. Limited shoulder ROM thus with UE exercises need to work in shortened range forward flexion to 80deg. Much improved with endurance today, good progression with balance and functional strength progression. PLAN: Continue with balance training, global strengthening and general conditioning for improved safety, mobility and activity tolerance until pt is ready for DC. TREATMENT CODE/TIME: 37532n4, 37276z3 50mins (10:10-11:00)
--- NOTE | 2025-04-18 12:23 | W.INDIABCONS ---
Date of service: 04/18/25 Time of Service: 12:24 Diabetes Inpatient Consult Reason for Visit: consult - diabetes education/mgt DESCRIPTION/ASSESSMENT: 84yo female being treated for acute pulmonary edema with CHF, Hypertensive crisis, acute hypoxic resp failure, acute NSTEMI, s/p TAVR, uncontrolled diabetes. A1c was 9.2 04/01/25 and 8.8% yesterday. glargine increaed from 10u per day to 20units currently and ordered for moderate sliding scale insulin correction at meals. home glipizide on hold. fasting and fingersticks well into the 400's consistently at beginning of admission - fasting today at 243. With co-conditions and age <8% would be an appropriate goal for Shannan. She has a fair intake on cho consistent, heart healthy diet order. Labs: H/H 7.5/25.1, total protein and albumin labs wnl, lytes wnl, gfr at 40.55. fasting glucose 243, 254 at breakfast, 243 at lunch. lives at home with some tenants helping out with big chores. does her own meal prep. diet tends to be high in refined starches, low in fiber and lean protein. Estimated energy needs: 1636kcals, 67g protein and 1636mL fluid INTERVENTION: offered outpatient service for help with guidance balancing meals more with fiber and lean protein, decreasing fast-acting starches. Current insulin order seems to be helping after increase in glargine. - would suggest increase to 25u glargine to match home order and consider ordering carb coverage along with moderate scale at 1unit per 20g carbs to help tighten control with current goal to get glucose <200 fasting and 2hour post prandial. PLAN: will continue to monitor labs/glucose, intake, Time Spent in Nutritional Counseling and Treatment: 20
--- NOTE | 2025-04-18 13:08 | W.PM.PROGNOT ---
Date of Service Date of service: 04/18/25 Time of Service: 13:08 Assessment and Plan Assessment and plan (1) Acute pulmonary edema with congestive heart failure: Status: Acute Assessment and plan: [facility] cardiology recommending echo and GDMT, outpatient stress Echo : EF 55%, no WMA Continue home losartan 100 mg daily No chest pain troponin elevated and flat, no chest pain, no acute ischemic EKG changes continue I&O and daily weights continue diuresis (2) Hypertensive crisis: Status: Resolved Assessment and plan: blood pressure controlled, continue routine monitoring and adjust meds as needed (3) Acute hypoxemic respiratory failure: Status: Resolved Assessment and plan: improved with diuresis weaned off oxygen (4) Acute on chronic heart failure with preserved ejection fraction (HFpEF): Status: Acute Assessment and plan: EF 55% see above (5) S/P TAVR (transcatheter aortic valve replacement): Status: Chronic Assessment and plan: Noted history (6) Uncontrolled diabetes mellitus with hyperglycemia: Status: Chronic Assessment and plan: A1c 8.8 Patient not on insulin, reportedly due to cost of medications Home regimen pioglitazone, held Increased basal insulin 20u QAM and medium correctional Ordered DM education Diatectic diet (7) Microcytic anemia: Status: Chronic Assessment and plan: Chronic anemia, iron deficit give IV iron (8) Elevated troponin: Status: Acute Assessment and plan: in setting of hypertensive crisis and heart failure No EKG ischemic changes, no chest pain troponin flat defer further cardiac evaluation to outpatient provider Subjective Subjective Patient reports: no new complaints, feels better, tolerating liquids well, tolerating a regular diet and afebrile; denies bowel movement or shortness of breath (moist productive cough) Exam Const General: cooperative, healthy appearing (younger than stated age), comfortable, no acute distress and well groomed Orientation: alert, awake and oriented x3 HENMT Head: normal to inspection, normocephalic and atraumatic Mouth: oral mucosae normal Resp Effort & Inspection: normal respiratory effort Auscultation: clear to auscultation bilaterally Cardio Rate: regular rate Rhythm: regular rhythm GI Inspection: normal to inspection Palpation: soft Auscultation: normal bowel sounds Skin General skin exam: no rashes or lesions noted Neuro General: patient alert, patient awake, patient oriented x3 and no focal motor deficits Extrem General: normal to inspection, full ROM and no pedal edema Objective Last Vital Signs Temp 36.9 C 04/18/25 11:11 Pulse 81 04/18/25 11:11 Resp 16 04/18/25 11:11 BP 137/71 04/18/25 11:11 Pulse Ox 96 04/18/25 11:11 Laboratory Results - last 24 hr 04/17/25 04/17/25 04/17/25 13:03 16:00 16:25 WBC RBC Hgb 7.8 L Hct 25.3 L MCV MCH MCHC RDW Plt Count MPV Immature Gran % Neutrophils % Lymphocytes % Monocytes % Eosinophils % Basophils % Nucleated RBC % Absolute Neutrophils Absolute Lymphocytes Absolute Monocytes Absolute Eosinophils Absolute Basophils RBC Morphology Hypochromasia Poikilocytosis Sodium Potassium Chloride Carbon Dioxide Anion Gap BUN Creatinine Est GFR (CKD-EPI 2020) Glucose Calcium Magnesium Total Bilirubin AST ALT Alkaline Phosphatase Troponin I 189 H* 205 H* Total Protein Albumin ABO/Rh O Positive Antibody Screen NEGATIVE 04/17/25 04/18/25 20:30 07:00 WBC 16.04 H RBC 3.15 L Hgb 7.5 L Hct 25.1 L MCV 80 MCH 23.8 L MCHC 29.9 L RDW 17.5 H Plt Count 249 MPV 10.3 Immature Gran % 0.7 Neutrophils % 84.2 Lymphocytes % 8.5 Monocytes % 6.4 Eosinophils % 0.1 Basophils % 0.1 Nucleated RBC % 0.0 Absolute Neutrophils 13.51 H Absolute Lymphocytes 1.36 Absolute Monocytes 1.03 H Absolute Eosinophils 0.02 Absolute Basophils 0.02 RBC Morphology See Below Hypochromasia 2+ Poikilocytosis 1+ Sodium 142 Potassium 4.2 D Chloride 104 Carbon Dioxide 26.8 Anion Gap 11.2 H BUN 42 H Creatinine 1.3 H Est GFR (CKD-EPI 2020) 40.55 Glucose 243 H Calcium 9.1 Magnesium 2.1 Total Bilirubin 1.0 AST 36 ALT 40 Alkaline Phosphatase 124 H Troponin I Cancelled 159 H* Total Protein 7.0 Albumin 3.6 ABO/Rh Antibody Screen Time Spent with Patient Time Spent with Patient: 35-49 minutes Time was spent: preparing to see the patient(eg.review tests), obtaining and/or reviewing separately otained hiistory, ordering medications,tests, procedures, indepentently interpreting results and counseling the patient
[2025-04-18] MEDS: guaiFENesin 600 MG TABCR PO ×2 (13:18→19:31)
[2025-04-18] MEDS: IRON SUCROSE COMPLEX 300 MG in Normal Saline 250 ML 167 MG IVPB (13:18)
[2025-04-18] MEDS: Rosuvastatin 20 MG TAB PO (19:31)
[2025-04-18] MEDS: Losartan 50 MG TAB 100 MG PO (19:31)
[2025-04-19 03:21] VITALS: BP 139/52; PULSE 81; RESP 18; TEMP 36.4; O2SAT 94
[2025-04-19] MEDS: Pantoprazole 40 MG TABCR PO (05:30)
[2025-04-19 06:07] VITALS: PULSE 77; RESP 18; O2SAT 93
[2025-04-19] MEDS: Albuterol/Ipratropium 3 ML UPD VIAL UPD (06:07)
[2025-04-19 07:01] LABS: Abs Immature Grans 0.04 10^3/uL (0.0-0.06); HCT 24.2 % (36.0-46.0); HGB 7.4 g/dL (11.2-15.7); Immature Grans % 0.5 %; MCH 24.3 pg (27.0-33.0); MCHC 30.6 % (32.0-36.0); MCV 80 fL (80-95); MPV 10.3 fL (8.0-11.0); Platelet Count 221 10^3/uL (130-400); RBC 3.04 10^6/uL (3.93-5.22); RDW 17.3 % (11.7-14.6); RDW-SD 49.5 fL; WBC 8.18 10^3/uL (4.4-10.8)
[2025-04-19 07:12] LABS: ALT 38 U/L (14-59); AST 36 U/L (15-37); Albumin 3.2 g/dL (3.4-5.0); Alkaline Phosphatase 114 U/L (46-116); Anion Gap 9.7 mmol/L (3-11); BUN 33 mg/dL (7-18); Bilirubin, Total 1.0 mg/dL (0.2-1.0); CO2 27.3 mmol/L (21.0-32.0); Calcium 8.7 mg/dL (8.5-10.1); Chloride 104 mmol/L (98-107); Estimated GFR 49.55 (mL/min/1.73m2); Glucose 171 mg/dL (74-106); Potassium 3.6 mmol/L (3.5-5.1); Sodium 141 mmol/L (136-145); Total Protein 6.4 g/dL (6.4-8.2)
[2025-04-19 08:23] VITALS: BP 126/65; PULSE 83; RESP 18; TEMP 36; O2SAT 94
[2025-04-19] MEDS: Amiodarone 200 MG TAB PO (08:25)
[2025-04-19] MEDS: Furosemide 40 MG TAB PO (08:25)
[2025-04-19] MEDS: guaiFENesin 600 MG TABCR PO (08:25)
[2025-04-19] MEDS: Enoxaparin 40 MG/0.4 ML SYR SC (08:25)
[2025-04-19] MEDS: Insulin Aspart 300 UNITS/3 ML PEN SC ×2 (08:28→11:51)
[2025-04-19] MEDS: Insulin Glargine 300 UNITS/3 ML PEN 20 UNITS SC (08:30)
--- NOTE | 2025-04-19 10:39 | PT.INTREAT ---
PT Notes Visit Reasons: pulmonary edema Date: 04/19/2025 PRECAUTIONS: Fall. Standard, Activity as tolerated. SUBJECTIVE: [I just have so much congestion but at least on coughing it all up my ribs are sore better today than yesterday] ? PAIN: Rib discomfort with coughing advised holding pillow to assist with coughing VITALS: Monitored by nursing, start of PT O2 sat 96% at RA HR 86 End 96% RA and HR 89 Therapeutic Activities [id number]:30min Direct one-on-one instruction in dynamic activities to improve functional performance. ?? Balance activity/Functional Activity: standing with light hand hold marching 2x5 B hip abduction 2x5 B standing without holding on 2x 20 sec standing putting robe on and off BED MOBILITY/TRANSFERS? Sit-stand: with intermittent v/c for hand placement? independent,5x sit to stand 5x 25 sec ? Stand-sit: ??independent ? Supine to sit: Independent? Sit to supine independent ? Provided skilled cues and instruction on performance and technique throughout. ? GAIT?Employing an assistive device/and without Movement sequencing /avoiding reaching, avoid rushing Turning and movement with proper form Provided verbal cues for equipment management and technique, cues for reaching back with hands Provided instruction in gait pattern Patient education regarding pacing and breathing techniques to maximize activity tolerance? Assistive Device: ?? FWRW ? Weight bearing: FWB Assist: ? supervision? Distance:?? 2x300'? Deviation: ? ?unremarkable ? Gait:? Assistive Device: ?0 ? ? TUG w/o AD 25 sec? Weight bearing: FWB Assist: ? CTG ? Distance:?? 4x20'? Deviation: ? reaches for furniture , WBOS somewhat unsteady without RW, short stride and more SOB? Stairs: with single rail on right side SBA step to using right up and despite cueing to go down with right she goes down with left as the proper way increased LBP. PT stairs 7 up and 4 down x1 ? Therapeutic Exercises [id number]' Direct one-on-one instruction in therapeutic exercises to develop strength, endurance, range of motion and flexibility. Teaching of diaphragmatic breathing PLB yet difficulty doing [id number] intermittently t/o session Access Code: [email or web address] URL: [email or web address] Date: 04/19/2025 Prepared by: Hannah Carmona Exercises - Sit to Stand with Counter Support - 2 x daily - 7 x weekly - 1 sets - 10 reps - Standing March with Counter Support - 2 x daily - 7 x weekly - 1 sets - 10 reps - Heel Raises with Counter Support - 2 x daily - 7 x weekly - 1 sets - 10 reps - Heel Toe Raises with Counter Support - 2 x daily - 7 x weekly - 1 sets - 10 reps - Standing Hip Abduction - 1 x daily - 7 x weekly - 2 sets - 5 reps - Sit to Stand with Armchair - 1 x daily - 7 x weekly - 2 sets - 5 reps - Seated Long Arc Quad - 2 x daily - 7 x weekly - 1 sets - 10 reps - Standing Shoulder Row with Anchored Resistance - 1 x daily - 7 x weekly - 2 sets - 10 reps yellow t-band Patient Education - Understanding Energy Conservation Provided skilled instruction in proper exercise performance Provided skilled manual cues to facilitate proper muscle recruitment and/or form: ASSESSMENT:?Pt had SOB and increased coughing but no decrease in O2 sats after walking without AD able to recover after pt took a seated rest break, cue for DBE to help with SOB. Has hx of LBP, at baseline does one stair at a time(using right despite right is problem side). Limited shoulder ROM thus with UE exercises need to work in shortened range of forward flexion to 80deg or as we did today band rows with yellow t-band to avoid elevation. Does better with band rows for scap retraction. Improved with endurance today, good progression with balance and functional strength progression. TUG w/o AD 25'. PLAN: Continue with balance training, global strengthening and general conditioning for improved safety, mobility and activity tolerance until pt is ready for DC. TREATMENT CODE/TIME: [id number], [id number] 40mins (10:40-11:20)
--- NOTE | 2025-04-19 12:54 | PDOC.CMDIS ---
Date of service: 04/19/25 Time of Service: 12:54 LACE Index Scoring Tool Questions: Length of Stay (in days): 2 Was the patient admitted via the E.D.?: Yes Comorbidities: Previous M.I., Diabetes w/o Complication and Congestive Heart Failure E.D. Visits: 2 Answers: Total Score: 12 Risk of Readmission: High Risk Care Management Discharge Plan Reason for Hospitalization: CHF Patient/Family Education Needs: Review discharge instructions, discuss Ask Me Three Services Needed at Discharge: Home Health Care Services (RN) SDMI Health Related Social Needs: Health related social needs details not applicable. Health related social needs details: not applicable.
[2025-04-19 13:21] LABS: Iron 142 ug/dL (50-170); Total Iron Binding Capacity 430 ug/dL (250-450); Transferrin Sat 33 % (15-50)
--- NOTE | 2025-04-19 14:22 | DSE_ITS ---
Date of service: 04/19/25 Time of Service: 14:22 DS: Diagnosis Discharge Diagnosis (1) Acute pulmonary edema with congestive heart failure: Status: Acute (2) Hypertensive crisis: Status: Resolved (3) Acute hypoxemic respiratory failure: Status: Resolved (4) Acute on chronic heart failure with preserved ejection fraction (HFpEF): Status: Acute (5) S/P TAVR (transcatheter aortic valve replacement): Status: Chronic (6) Uncontrolled diabetes mellitus with hyperglycemia: Status: Chronic (7) Microcytic anemia: Status: Chronic (8) Elevated troponin: Status: Acute Discharge Plan Disposition Patient Disposition: Home W/Home Health Services Condition: Improving Discharge Details Reason For Visit: pulmonary edema Admit Date/Time: 04/17/25 05:35 Admit Provider: Altaf Peñaloza Attending Provider: Altaf Peñaloza Primary Care Provider: Regis Muller Hospital Course Hospital Course: This is an 84-year-old female patient complex past medical history including paroxysmal atrial fibrillation on amiodarone not anticoagulated heart failure with preserved ejection fraction, coronary artery disease status post stent placement, aortic valve replacement, 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 She was found to be hypertensive in the emergency department with a blood pressure up to the 250s over 130s and tachycardic into the 120s. She was hypoxic requiring 2 L of nasal cannula to maintain sats in the low 90s. She was started on BiPAP as her condition rapidly deteriorated in the emergency department. Chest x-ray and CAT scan were obtained PE was ruled out. Her imaging showed moderate effusions and evidence of pulmonary edema. She was diuresed. Incidental finding on CT also showed multiple thyroid nodules which should be followed up outpatient with her primary care provider. In addition to diuresis she did receive IV metoprolol which did improve her heart rate and blood pressure. She was initially given Solu-Medrol ceftriaxone nitroglycerin and vancomycin in the emergency department. Hospitalist services was contacted and she was admitted to the medical surgical unit. Antibiotics were not continued as there was no evidence of pneumonia or infection. She remained on diuresis with improvement in her symptoms. She was weaned off oxygen and her blood pressure remained normal. [facility] cardiology was consulted with recommendations for goal- directed therapy echocardiogram and an outpatient stress test. She did undergo an echocardiogram which did show preserved ejection fraction at 55% her right ventricular systolic pressure has increased from 45-53 additionally mitral valve gradient increased from 7-11. Please see full report for additional details. Notable labs were elevated troponin which peaked at 205 before trending downward. She had no ischemic EKG changes or reports of chest pain. She was safely reambulated and is stable for discharge to home. She will be referred to home health nursing for monitoring of decompensated heart failure. New medications will include furosemide, spironolactone and Jardiance. Pioglitazone should be discussed with her primary care provider as it is not recommended in patients with symptomatic heart failure. 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 Further adjustments in goal-directed therapies will be deferred to her outpatient team. Cardiology referral will also be placed. She should have a basic metabolic panel and CBC drawn next week. Also during her hospital course she did receive a dose of IV iron. Iron level at discharge was 142. She is being discharged to home with new home health nursing to evaluate for decompensated heart failure and medication oversight routine nursing monitoring and reporting. Discharge discussed with Dr. Coleman [place] Meds and New Rx's Prescriptions: New furosemide 40 mg Tablet 20 mg PO DAILY Qty: 30 0RF Jardiance 10 mg tablet 10 mg PO DAILY Qty: 30 0RF spironolactone 25 mg tablet 12.5 mg PO DAILY Qty: 30 0RF Continued fluticasone propionate [Allergy Relief (fluticasone)] 50 mcg/actuation spray,suspension 1 spray intranasal BID Rx Instructions: administer into each nostril hydrocodone-acetaminophen 325 mg PO DAILY PRN Patient Comments: prn lidocaine 5 % cream 1 applic topical BID PRN Patient Comments: prn, pt states not using often. removes after 1 hour. metronidazole 0.75 % cream 1 applic topical DAILY ferrous gluconate 324 mg (37.5 mg iron) tablet 324 mg PO DAILY amiodarone [Pacerone] 200 mg tablet 200 mg PO BID insulin glargine [Lantus U-100 Insulin] 100 UNITS/ML solution 25 unit Sub-Q BID Humalog U-100 Insulin 100 UNIT/ML cartridge 15 unit Sub-Q TID ascorbic acid (vitamin C) [Vitamin C] 1,000 mg Tablet 1,000 mg PO DAILY Multi For Her 18 mg iron-600 mcg-40 mcg Capsule 1 tab-cap PO DAILY pantoprazole [Protonix] 40 mg Tablet,Delayed Release (Dr/Ec) 40 mg PO BID rosuvastatin 20 mg Tablet 20 mg PO HS clopidogrel [Plavix] 75 mg tablet 75 mg PO DAILY metoprolol succinate 100 mg tablet extended release 24 hr 200 mg PO QHS amitriptyline 10 mg tablet 10 mg PO DIRECTED Patient Comments: TAKE ONE-HALF TO TWO TABLETS BY MOUTH AT BEDTIME Rx Instructions: 1/2 -2 tablets every night glipizide 5 mg tablet 5 mg PO DAILY Patient Comments: TAKE ONE TABLET BY MOUTH EVERY DAY sucralfate 1 gram Tablet 1 g PO AC & HS Qty: 120 0RF gabapentin 100 mg capsule 100 mg PO TID Patient Comments: TAKE ONE CAPSULE BY MOUTH THREE TIMES A DAY famotidine 40 mg tablet 40 mg PO DAILY Qty: 90 0RF vitamin B complex [B Complex-Vitamin B12] 1 EACH tablet 1 ea PO DAILY cholecalciferol (vitamin D3) [Vitamin D3] 1,000 UNIT capsule 1,000 unit PO DAILY losartan 100 MG tablet 100 mg PO HS (DME) OneTouch Ultra Test Strip MISCELLANEOUS Patient Comments: TEST THREE TIMES A DAY cyclobenzaprine 5 mg tablet 5 mg PO TID PRNQty: 10 0RF ondansetron 4 mg tablet,disintegrating 4 mg PO Q6H PRN (Reason: nausea and vomiting) Qty: 30 0RF Patient Comments: prn Discontinued pioglitazone 15 mg tablet 15 mg PO DAILY Patient Comments: TAKE ONE TABLET BY MOUTH EVERY MORNING Discharge Instructions Instructions: Heart failure with preserved ejection fraction Additional Instructions: Please take medications as directed, new prescriptions have been sent to your pharmacy as recommendations for goal-directed therapy in heart failure. You are having labs drawn next week to evaluate kidney function electrolytes and your anemia Please weigh yourself 3-5 times weekly and report weight gain of greater than 5 pounds to your primary care provider Home health nursing will be evaluating you for decompensated heart failure, vital signs with new medication recommendations, and medication oversight. Referrals: Regis Muller MD [Primary Care Provider, Medicine] [facility] STAFF PHYSICIAN, Medicine] Activity:: Activity as Tolerated Equipment/Supplies:: No Equipment Needed Diet:: As Tolerated Discharge Orders Other Ambulatory Orders: Basic Metabolic Panel (Routine) Timeframe: 3 Days Facility: [facility] - Location: Laboratory Outpatient - [facility] Ordered By: Maame Cabrera Complete Blood Count w/Diff (Routine) Timeframe: 3 Days Facility: [facility] - Location: Laboratory Outpatient - [facility] Ordered By: Maame Cabrera DS: Summary Time Spent with Patient providing and/or coordinating discharge services: Greater than 30 minutes Status at Discharge Functional status at discharge: independent ambulation Overall status at discharge: patient is progressing back to baseline Mental Status: mental status grossly normal Speech and Movement: speech and movement normal Mood: congruent mood Affect: normal affect Quality:SDOH Health Related Social Needs: Health related social needs details not applicable. Health related social needs details: not applicable. Exam Const General: cooperative, comfortable, no acute distress and well groomed Orientation: alert, awake and oriented x3 HENMT Head: normal to inspection, normocephalic and atraumatic Mouth: oral mucosae normal Resp Effort & Inspection: normal respiratory effort Auscultation: clear to auscultation bilaterally Cardio Rate: regular rate Rhythm: regular rhythm GI Inspection: normal to inspection Palpation: soft Auscultation: normal bowel sounds Skin General skin exam: no rashes or lesions noted Neuro General: patient alert, patient awake, patient oriented x3 and no focal motor deficits Extrem General: normal to inspection, full ROM and no pedal edema Psych Mental Status: mental status grossly normal Speech and Movement: speech and movement normal Mood: congruent mood Affect: normal affect DS: Data Vitals/I&O Vitals and I&O: Vital Signs Temperature 36 C L 04/19/25 08:23 Temperature Source Tympanic 04/19/25 08:23 Pulse 83 04/19/25 08:23 Pulse Rhythm Irregular 04/17/25 06:42 Pulse 92 H 04/17/25 06:01 Respiratory Rate 18 04/19/25 08:23 Respiratory Effort Short of Breath 04/17/25 06:42 Respiratory Depth Shallow 04/17/25 06:42 Respiratory Pattern Tachypnea 04/17/25 06:42 Blood Pressure 126/65 04/19/25 08:23 Blood Pressure Mean 85 04/19/25 08:23 Blood Pressure Position Sitting 04/16/25 22:07 Pulse Oximetry 94 04/19/25 08:23 Oxygen Delivery Method Room Air 04/19/25 08:23 Oxygen Flow Rate 0 04/19/25 08:23 Fraction of Inspired Oxygen (FIO2) 30 04/17/25 00:15 Pain Level 4 04/19/25 08:23 Intake & Output 04/18/25 04/19/25 04/19/25 23:59 11:59 23:59 Intake Total 395 / 414.850 20 Output Total 550 / 1950 Balance -155 / -1535.150 Intake: IV 285 / 304.850 / Oral 110 / 110 Output: Urine 550 / 1950 Other: Urine Color Yellow Yellow Urine Appearance Clear Clear Urine Odor Normal Comment rebeka Stool Size Small Small Stool Characteristics Formed Soft Data Completed and Pending Labs on day of discharge: Labs from last 24 hours 04/19/25 04/19/25 04/19/25 Unknown 12:33 06:20 WBC 8.18 RBC 3.04 L Hgb 7.4 L Hct 24.2 L MCV 80 MCH 24.3 L MCHC 30.6 L RDW 17.3 H Plt Count 221 MPV 10.3 Immature Gran % 0.5 Neutrophils % 71.5 Lymphocytes % 18.8 Monocytes % 6.5 Eosinophils % 2.3 Basophils % 0.4 Nucleated RBC % 0.2 Absolute Neutrophils 5.85 Absolute Lymphocytes 1.54 Absolute Monocytes 0.53 Absolute Eosinophils 0.19 Absolute Basophils 0.03 Sodium 141 Potassium 3.6 Chloride 104 Carbon Dioxide 27.3 Anion Gap 9.7 BUN 33 H Creatinine 1.1 H Est GFR (CKD-EPI 2020) 49.55 Glucose 171 H Calcium 8.7 Iron 142 TIBC 430 Transferrin % Sat 33 Total Bilirubin 1.0 AST 36 ALT 38 Alkaline Phosphatase 114 Total Protein 6.4 Albumin 3.2 L Add-On Test Request Pending Preliminary micro results at discharge 04/16/25 22:23 Blood Blood Culture - Preliminary NO GROWTH 48 HOURS 04/16/25 22:10 Blood Blood Culture - Preliminary NO GROWTH 48 HOURS PFSH All Active Problems (Updated 04/18/25 @ 22:06 by Maame Cabrera NP) Elevated troponin (Acute) Microcytic anemia (Chronic) Uncontrolled diabetes mellitus with hyperglycemia (Chronic) Acute on chronic heart failure with preserved ejection fraction (HFpEF) (Acute) Acute pulmonary edema with congestive heart failure (Acute) Acute non-ST elevation myocardial infarction (NSTEMI) (Acute) Heart failure (Acute) Lumbar spondylosis (Acute) Mechanical low back pain (Acute) Exposure to COVID-19 virus (Acute ~04/12/23) Acute on chronic diastolic CHF (congestive heart failure), NYHA class 2 (Chronic) Cervical disc herniation (Chronic) Diabetes mellitus (Chronic) S/P TAVR (transcatheter aortic valve replacement) (Chronic) Anemia (Acute) Medical History Palpable mass of lower back Lumbar spinal stenosis Low back pain Spinal stenosis Paroxysmal atrial fibrillation Atherosclerotic cardiovascular disease Aortic stenosis Acute cholecystitis BP (high blood pressure) Degenerative joint disease of right knee Closed fracture of left distal fibula (03/31/19) Surgical History H/O esophagogastroduodenoscopy (~2019) S/P colonoscopy (~2019) History of hysterectomy History of cataract surgery Social History Smoking/Tobacco Use Status: Never Smoking risk assessment performed?: Yes Alcohol Intake: never Drug use: Never Substance use type: does not use Housing: house What type of physical activity do you participate in: additional Details: PT to start Do you feel safe at home: Yes Do you feel safe in your relationship?: Yes Time Spent with Patient Time Spent with Patient: 70-84 minutes4 Time was spent: preparing to see the patient(eg.review tests), obtaining and/or reviewing separately otained hiistory, ordering medications,tests, procedures, indepentently interpreting results, counseling the patient and care coordination
--- NOTE | 2025-04-19 15:16 | PDOC.HHF2F ---
Home Health Referral Home Health Orders Clinical synopsis of why skilled professionals are needed: Elderly patient who lives independently at risk for decompensation Medical diagnosis necessitation home health referral: new decompensated heart failure with pulmonary edema, hypertensive crisis, chronic anemia Registered Nurse: Check all that apply Instruct on new or changed medication(s)/assess compliance: Ordered Assess for exacerbation of medical condition, instruct patient/caregivers on signs and symptoms to report for early detection: Ordered Other: CBC and CMP on Sunday, April 22, 2025, ?2 days Home Bound Status Describe why leaving home would require a considerable and taxing effort: Requires frequent rest periods Encounter Date and Reason: I certify that a FTF encounter for this patient was performed on April 19, 2025 and that such encounter was related to the primary reason the patient requires home health services. The encounter was conducted in the following manner: By me as the certifying physician, DIGITAL IMAGING SPECIALIST, PA or By an inpatient physician, DIGITAL IMAGING SPECIALIST or PA during an inpatient stay who communicated findings to me, Certification And Authentication I certify that I composed the above information based on my clinical judgment relating to this patient's medical condition and, if applicable, clinical findings communicated to me by the NPP or inpatient physician who performed the FTF encounter. Name of Provider that will be monitoring home health services: Regis Muller
[2025-04-19 15:58] LABS: Lab Add On Test DONE
== END 2025-04-19 16:26 | disposition home health service (06) | DRG 304 ==
LOC: ER 04-17 05:56 → MS 04-17 06:19
PROVIDERS: Nurse Practitioner Family; Admitting Provider Family Medicine; Emergency Provider Student in an Organized Health Care Education/Training Program; PCP Family Medicine; Responsible Provider Nurse Practitioner Acute Care; Visit Provider Family Medicine
DX: J96.01 Acute respiratory failure with hypoxia (principal); I50.33 Acute on chronic diastolic (congestive) heart failure; Z95.5 Presence of coronary angioplasty implant and graft; Z95.2 Presence of prosthetic heart valve; I25.10 Atherosclerotic heart disease of native coronary artery without angina pectoris; E11.65 Type 2 diabetes mellitus with hyperglycemia; I48.0 Paroxysmal atrial fibrillation; I11.0 Hypertensive heart disease with heart failure; I16.1 Hypertensive emergency; D50.9 Iron deficiency anemia, unspecified; J44.9 Chronic obstructive pulmonary disease, unspecified; G89.29 Other chronic pain; E04.2 Nontoxic multinodular goiter; I24.89 Other forms of acute ischemic heart disease; M47.816 Spondylosis without myelopathy or radiculopathy, lumbar region; M50.20 Other cervical disc displacement, unspecified cervical region; T38.3X6A Underdosing of insulin and oral hypoglycemic [antidiabetic] drugs, initial encounter; Z91.141 Patient's other noncompliance with medication regimen due to financial hardship; M17.11 Unilateral primary osteoarthritis, right knee; I45.10 Unspecified right bundle-branch block
CPT/HCPCS: 00123; 36415; 71275; 80053; 82805; 86850; 86900; 86901; 87040; 87637; 93005; 93306; 94640; 96365; 96366; 96367; 96375; 97110; 97161; 97530; 99291; J1650; 71045; 80202; 81003; 81015; 83036; 83540; 83550; 83605; 83735; 83880; 84484; 85014; 85018; 85025; 85379; 85610; 85730; 93010; 94660; 94760; 99222; 99232; 99239; J0696; J1644; J1756; J1815; J1938; J2305; J2919; J3373; J3490; J7613; J7620

== ENCOUNTER 2025-06-12 15:37 | Outpatient (REF) | payer MEDICARE, SELFPAY | END 2025-06-12 15:38 | disposition home or self-care (01) | LOC: NCHCN 15:37 | PROVIDERS: PCP Family Medicine; Visit Provider Family Medicine | DX: R35.0 Frequency of micturition (principal) | CPT/HCPCS: 87077; 87086; 87186 ==

== ENCOUNTER 2025-06-23 15:00 | Outpatient (REF) | payer MEDICARE, SELFPAY | END 2025-06-23 15:01 | disposition home or self-care (01) | LOC: NCHCN 15:00 | PROVIDERS: PCP Family Medicine; Visit Provider Family Medicine | DX: N39.0 Urinary tract infection, site not specified (principal) | CPT/HCPCS: 87077; 87086; 87186 ==

== ENCOUNTER 2025-07-03 10:30 | Outpatient (REF) | payer MEDICARE, SELFPAY ==
[2025-07-03 16:01] LABS: HCT 25.1 % (36.0-46.0); HGB 7.5 g/dL (11.2-15.7); MCH 23.4 pg (27.0-33.0); MCHC 29.9 % (32.0-36.0); MCV 78 fL (80-95); MPV 12.2 fL (8.0-11.0); Platelet Count 181 10^3/uL (130-400); RBC 3.21 10^6/uL (3.93-5.22); RDW 17.1 % (11.7-14.6); RDW-SD 48.7 fL; WBC 5.15 10^3/uL (4.4-10.8)
[2025-07-03 17:01] LABS: Hemoglobin A1C 8.9 % (<5.7)
[2025-07-03 17:09] LABS: ALT 61 U/L (14-59); AST 38 U/L (15-37); Albumin 3.3 g/dL (3.4-5.0); Alkaline Phosphatase 167 U/L (46-116); Anion Gap 9.2 mmol/L (3-11); BUN 23 mg/dL (7-18); Bilirubin, Total 0.7 mg/dL (0.2-1.0); CO2 25.8 mmol/L (21.0-32.0); Calcium 8.3 mg/dL (8.5-10.1); Chloride 105 mmol/L (98-107); Glucose 253 mg/dL (74-106); Potassium 4.5 mmol/L (3.5-5.1); Sodium 140 mmol/L (136-145); Total Protein 6.2 g/dL (6.4-8.2)
== END 2025-07-03 10:31 | disposition home or self-care (01) ==
LOC: NCHCN 10:30
PROVIDERS: PCP Family Medicine
DX: E11.9 Type 2 diabetes mellitus without complications (principal); D64.9 Anemia, unspecified
CPT/HCPCS: 80053; 85027; 83036

== ENCOUNTER 2025-07-10 15:29 | Emergency (ER) | payer MEDICARE, SELFPAY ==
[2025-07-10] VITALS (56 sets, daily range): BP systolic 152–222; BP diastolic 42–84; PULSE 58–73; RESP 11–21; TEMP 36.4–37; O2SAT 93–99
--- NOTE | 2025-07-10 15:30 | RT.EKG_ITS ---
APPROVED REPORT Exam: Resting ECG Reason for Exam: zeferino pressure Patient Location: E HR:68 bpm ECG Measurements Heart Rate 68 AXIS NV 181 P 185 QRSd 153 QRS -109 QT 498 T 110 QTc 530 Conclusion Sinus or ectopic atrial rhythm...P axis (-45,135) RBBB and LAFB...QRSd >120mS, axis(-40,240) Abnormal T, consider ischemia, lateral leads...T <-0.20mV, I aVL V5 V6 No STEMI
[2025-07-10 16:23] LABS: Abs Immature Grans 0.02 10^3/uL (0.0-0.06); HCT 23.7 % (36.0-46.0); HGB 7.1 g/dL (11.2-15.7); Immature Grans % 0.4 %; MCH 22.4 pg (27.0-33.0); MCHC 30.0 % (32.0-36.0); MCV 75 fL (80-95); MPV 10.3 fL (8.0-11.0); Platelet Count 253 10^3/uL (130-400); RBC 3.17 10^6/uL (3.93-5.22); RDW 17.2 % (11.7-14.6); RDW-SD 47.0 fL; WBC 5.52 10^3/uL (4.4-10.8)
--- NOTE | 2025-07-10 16:30 | DI.CT_ITS ---
Exam(s) CT LUMBAR SPINE RECONS CT RENAL COLIC WO EXAM: CT RENAL COLIC WO CLINICAL HISTORY: L flank pain. TECHNIQUE: Imaging Protocol: Axial computed tomography images with coronal and sagittal reformatted images were created and reviewed. CONTRAST MATERIAL: Noncontrast COMPARISON: CT CT CHEST PE ABD PELVIS W from 04/12/[address] LUMBAR SPINE WO from 04/28/[address] HEAD CERVICAL SPINE WO from 06/14/[address] LUMBAR SPINE RECONS from 07/10/2025 FINDINGS: ABDOMEN: Lung Bases: Normal where visualized. Liver: Normal attenuation. No measurable mass. Gallbladder and biliary tract: Cholecystectomy. No biliary dilation. Pancreas: Somewhat atrophic. Normal density, no calcifications or inflammatory process. Spleen: Normal. Kidneys: Normal size, contour and axis. No radiodense stones or obstructive uropathy. No masses seen. Adrenal glands: No masses seen. Abdominal Aorta: Abdominal portion non-dilated. Atherosclerotic calcification. Soft tissues: Small fat containing umbilical hernia. PELVIS: Bladder: Symmetric distention, no gross wall thickening. No evidence of stones.No visible mass. Bowel: No obstruction or bowel wall thickening. Moderate quantity of stool. Appendix normal. Mild diverticulosis. No evidence of diverticulitis. Reproductive: Hysterectomy. Peritoneal cavity: No ascites, collection or mesenteric inflammatory response. Bones: Degenerative changes in the hips and lumbar spine. Schmorl's node again noted at the superior endplate L 2. Endplate osteophytes projecting posteriorly at L1-2 and L2-3. Disc space narrowing at L4-5 with small endplate osteophytes. Facet degenerative changes. 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 Stable findings compared to prior CT. IMPRESSION: No acute abnormality in the abdomen and pelvis. No evidence of hydronephrosis or urinary tract calculi. Stable appearance of degenerative changes of the lumbar spine. RADIATION DOSE DELIVERED: Total DLP DATA REPOSITORY: All CT scans at this facility are submitted to the National Radiology Data Registry (NRDR) Dose Index Registry (DIR) with the [employer] (A[employer]). RADIATION OPTIMIZATION: All CT scans at this facility use at least one of these dose optimization techniques: automated exposure control; mA and/or kV adjustment per patient size (includes targeted exams where dose is matched to clinical indication); or iterative reconstruction.
[2025-07-10 16:32] LABS: Glucose Negative (Negative)
[2025-07-10 16:38] LABS: C & S Indicated? Yes; WBC >50 HPF (0-5)
[2025-07-10 16:38] LABS: Magnesium 1.7 mg/dL (1.6-2.6)
[2025-07-10 16:39] LABS: Troponin I 12 ng/L (<35)
[2025-07-10 16:41] LABS: D-Dimer 762 ng/mlFEU (<500)
[2025-07-10 16:42] LABS: ALT 40 U/L (10-49); AST 35 U/L (<34); Albumin 4.3 g/dL (3.4-5.0); Alkaline Phosphatase 141 U/L (46-116); Anion Gap 12.4 mmol/L (3-11); BUN 28 mg/dL (9-23); Bilirubin, Total 1.00 mg/dL (0.2-1.2); CO2 22.6 mmol/L (20.0-31.0); Calcium 8.8 mg/dL (8.3-10.6); Chloride 107 mmol/L (98-107); Glucose 238 mg/dL (74-106); Potassium 3.8 mmol/L (3.5-5.1); Sodium 142 mmol/L (136-145); Total Protein 7.1 g/dL (5.7-8.2)
[2025-07-10 16:48] LABS: Hypochromasia 1+; Microcytosis 1+
[2025-07-10 16:49] LABS: Poikilocytes 1+
[2025-07-10 16:50] LABS: BE (Venous) -2 mmol/L (-2-3); HCO3 (Venous) 23 mmol/L (23-28); O2 Sat (Venous) 68 %; TCO2 (Venous) 23 mmol/L (24-29); pCO2 (Venous) 41 mmHg (41-51); pO2 (Venous) 39 mmHg
--- NOTE | 2025-07-10 16:50 | DI.CT_ITS ---
Exam(s) CT BRAIN NECK CTA EXAM: CT BRAIN NECK CTA CLINICAL HISTORY: RUSSELL, acute severe onset days ago. TECHNIQUE: Imaging Protocol: Axial CT angiography was performed with multi- slice acquisition and multi-planar and MIP reconstructions. CONTRAST MATERIAL: Intravenous: Omnipaque 350 Contrast volume:70 ml COMPARISON: CT CT HEAD CERVICAL SPINE WO from 06/14/2024 FINDINGS: CT Head W/O and W contrast: Ventricles and Extra axial spaces: Normal in size and morphology for the patient's age. Hemorrhage: None. Cerebral parenchyma: No evidence of acute infarct or mass. Midline shift: None. Brainstem/Cerebellum: No acute findings.. Calvarium: Normal. Visualized Paranasal sinuses/Mastoids: Opacification of a few ethmoid air cells. Soft Tissues: Unremarkable. Enhancement: Normal. Venous sinuses are patent. CTA Brain W: Internal Carotid Arteries: Calcification at the petrous portion of the internal carotid arteries. Right: No aneurysm, occlusion or significant stenosis. Left: No aneurysm, occlusion or significant stenosis. Middle Cerebral Arteries: Right: No aneurysm, occlusion or significant stenosis. Left: No aneurysm, occlusion or significant stenosis. Anterior Cerebral Arteries: Right: No aneurysm, occlusion or significant stenosis. Left: No aneurysm, occlusion or significant stenosis. Posterior cerebral Arteries: Right: No aneurysm, occlusion or significant stenosis. Left: No aneurysm, occlusion or significant stenosis. Vertebral Arteries: Right: No aneurysm, occlusion or significant stenosis. Left: No aneurysm, occlusion or significant stenosis. Basilar Artery: No aneurysm, occlusion or significant stenosis. CTA Neck W: Visualized aorta: Unremarkable. Visualized pulmonary arteries: Unremarkable. Subclavian arteries: Unremarkable. Common Carotid: Right: No dissection, occlusion or significant stenosis. Left: No dissection, occlusion or significant stenosis. External Carotid: Right: No dissection, occlusion or significant stenosis. Left: No dissection, occlusion or significant stenosis. Internal Carotid: Right: Combination of calcified and noncalcified plaque is noted at the right common carotid bulb and proximal internal carotid artery, causing moderate stenosis. No dissection. Left: Mixed calcific and noncalcific plaque at the common carotid bulb and proximal internal carotid artery causing mild stenosis. No dissection, occlusion or significant stenosis. Vertebral Artery: Right: No dissection, occlusion or significant stenosis. Left: No dissection, occlusion or significant stenosis. Lung Apices: No acute findings. Bones: No acute abnormality. Advanced degenerative changes of the cervical spine. Soft Tissues: Normal. IMPRESSION: 1. CTA brain: Calcification at the petrous portions of the internal carotid arteries but no significant stenosis. 2. Head CT: No acute abnormality. 3. CTA neck: Mixed calcific and noncalcific plaque at the common carotid bulbs and proximal internal carotid arteries. Moderate stenosis at the right proximal internal carotid artery. Mild stenosis of the left proximal internal carotid artery. RADIATION DOSE DELIVERED: Total DLP DATA REPOSITORY: All CT scans at this facility are submitted to the National Radiology Data Registry (NRDR) Dose Index Registry (DIR) with the [employer] (ACR). RADIATION OPTIMIZATION: All CT scans at this facility use at least one of these dose optimization techniques: automated exposure control; mA and/or kV adjustment per patient size (includes targeted exams where dose is matched to clinical indication); or iterative reconstruction.
[2025-07-10 17:07] LABS: COVID-19 PCR Negative (Negative); RSV PCR Negative (Negative)
[2025-07-10] MEDS: Omnipaque 350 MG/ML 100 ML BTL IJ (17:15)
[2025-07-10] MEDS: Normal Saline Flush 10 ML SYR IVP (17:16)
[2025-07-10] MEDS: Normal Saline - Diluent 50 ML VIAL IJ (17:16)
--- NOTE | 2025-07-10 17:16 | W.ED.GENAD ---
Discharge Plan Disposition Patient Disposition: Home Condition: Stable Discharge Details Clinical Impression: Anemia, Urinary tract infection Primary Care Provider: Regis Muller ED Provider: Kyrie Smith Home Meds and New Rx's Prescriptions: New cefpodoxime 200 mg tablet 200 mg PO BID 14 Days Qty: 28 0RF Rx Instructions: must administer with a meal/food No Action fluticasone propionate [Allergy Relief (fluticasone)] 50 mcg/actuation spray,suspension 1 spray intranasal BID Rx Instructions: administer into each nostril hydrocodone-acetaminophen 325 mg PO DAILY PRN Patient Comments: prn metronidazole 0.75 % cream 1 applic topical DAILY ferrous gluconate 324 mg (37.5 mg iron) tablet 324 mg PO DAILY amiodarone [Pacerone] 200 mg tablet 200 mg PO BID insulin glargine [Lantus U-100 Insulin] 100 UNITS/ML solution 25 unit Sub-Q BID Humalog U-100 Insulin 100 UNIT/ML cartridge 15 unit Sub-Q TID ascorbic acid (vitamin C) [Vitamin C] 1,000 mg Tablet 1,000 mg PO DAILY Multi For Her 18 mg iron-600 mcg-40 mcg Capsule 1 tab-cap PO DAILY pantoprazole [Protonix] 40 mg Tablet,Delayed Release (Dr/Ec) 40 mg PO BID rosuvastatin 20 mg Tablet 20 mg PO HS clopidogrel [Plavix] 75 mg tablet 75 mg PO DAILY metoprolol succinate 100 mg tablet extended release 24 hr 200 mg PO QHS amitriptyline 10 mg tablet 10 mg PO DIRECTED Patient Comments: TAKE ONE-HALF TO TWO TABLETS BY MOUTH AT BEDTIME Rx Instructions: 1/2 -2 tablets every night glipizide 5 mg tablet 5 mg PO DAILY Patient Comments: TAKE ONE TABLET BY MOUTH EVERY DAY sucralfate 1 gram Tablet 1 g PO AC & HS Qty: 120 0RF gabapentin 100 mg capsule 100 mg PO TID Patient Comments: TAKE ONE CAPSULE BY MOUTH THREE TIMES A DAY famotidine 40 mg tablet 40 mg PO DAILY Qty: 90 0RF furosemide 40 mg Tablet 20 mg PO DAILY Qty: 30 0RF spironolactone 25 mg tablet 12.5 mg PO DAILY Qty: 30 0RF vitamin B complex [B Complex-Vitamin B12] 1 EACH tablet 1 ea PO DAILY cholecalciferol (vitamin D3) [Vitamin D3] 1,000 UNIT capsule 1,000 unit PO DAILY losartan 100 MG tablet 100 mg PO HS (DME) OneTouch Ultra Test Strip MISCELLANEOUS Patient Comments: TEST THREE TIMES A DAY cyclobenzaprine 5 mg tablet 5 mg PO TID PRNQty: 10 0RF ondansetron 4 mg tablet,disintegrating 4 mg PO Q6H PRN (Reason: nausea and vomiting) Qty: 30 0RF Patient Comments: prn Discharge Instructions Instructions: Cefpodoxime, Urinary Tract Infection, Adult ED, Blood transfusion Additional Instructions: You were seen in the emergency department for your generalized malaise and a constellation of symptoms including severe sudden onset headache, excessive urination, chronic low back pain, cough for 5 years, chest pain/palpitations. You also state that you have been taking both baclofen and cyclobenzaprine and it has been making you feel loopy. 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 You still have a persistent urinary tract infection I am sending you home on antibiotics, please return for any emergent concerns. Stand Alone Forms: Portal Information Referrals: Regis Muller MD [Primary Care Provider, Medicine] HPI General Date/Time Provider Initiated Documentation: 07/10/25 15:44. HPI Narrative: 84 year-old female presents to ED today by POV/ambulating with a chief complaint of constellation of complaints-states that she has been loopy on baclofen and cyclobenzaprine for her chronic lumbar back pain which is bothering her today and is part of her presentation of visit but she is also concerned that she is urinating a lot and has diabetes and has had multiple antibiotics for UTI recently and does not seem to be getting better, also states that she had a severe sudden onset headache that started a couple days ago and has not fully resolved and that she has had a cough since the start of the pandemic with some palpitations. Quality described as generalized loopiness, acute on chronic low back pain, polyuria without burning sensation and dysuria, no radiation to high fever, crushing chest pain, nausea or vomiting, dysuria, hematuria, numbness or weakness to legs, visual changes, near syncope. Severity is described as unable to quantify. Palliating factors include nothing specific attempted. Provoking factors include nothing specific. Patient not anticoagulated. Related Data Home Medications Medication Instructions Recorded Confirmed insulin glargine 100 unit/mL 25 unit subcut BID 11/28/15 07/10/25 subcutaneous solution (Lantus U-100 Insulin) insulin lispro 100 unit/mL 15 unit subcut TID 11/28/15 07/10/25 subcutaneous cartridge (Humalog U-100 Insulin) cholecalciferol (vitamin D3) 25 1,000 unit PO DAILY 01/30/18 07/10/25 mcg (1,000 unit) capsule (Vitamin D3) losartan 100 mg tablet 100 mg PO HS 01/30/18 04/17/25 vitamin B complex (B 1 ea PO DAILY 01/30/18 07/10/25 Complex-Vitamin B12 tablet) ascorbic acid (vitamin C) 1,000 mg 1,000 mg PO DAILY 04/14/20 07/10/25 tablet (Vitamin C) [id number] fumarate 18 1 tab-cap PO DAILY 04/14/20 07/10/25 mg-FA 600 mcg-vit K 40 mcg capsule (Multi For Her) pantoprazole 40 mg tablet,delayed 40 mg PO BID 06/10/20 07/10/25 release (Protonix) rosuvastatin 20 mg tablet 20 mg PO HS 06/10/20 07/10/25 amiodarone 200 mg tablet (Pacerone) 200 mg PO BID 11/05/20 07/10/25 clopidogrel 75 mg tablet (Plavix) 75 mg PO DAILY 11/05/20 04/17/25 ferrous gluconate 324 mg (37.5 mg 324 mg PO DAILY 11/05/20 07/10/25 iron) tablet amitriptyline 10 mg tablet 10 mg PO DIRECTED 07/22/21 04/17/25 glipizide 5 mg tablet 5 mg PO DAILY 07/22/21 07/10/25 metoprolol succinate 100 mg 200 mg PO QHS 07/22/21 07/10/25 tablet,extended release 24 hr sucralfate 1 gram tablet 1 g PO AC & HS #120 tabs 07/23/21 12/17/24 blood sugar diagnostic (OneTouch 03/17/24 07/10/25 Ultra Test strips) famotidine 40 mg tablet 40 mg PO DAILY #90 tabs 04/28/24 07/10/25 gabapentin 100 mg capsule 100 mg PO TID 04/28/24 07/10/25 cyclobenzaprine 5 mg tablet 5 mg PO TID PRN #10 tabs 05/05/24 07/10/25 ondansetron 4 mg disintegrating 4 mg PO Q6H PRN nausea and 09/28/24 04/17/25 tablet vomiting #30 tabs fluticasone propionate 50 1 spray intranasal BID 10/27/24 07/10/25 mcg/actuation nasal spray,suspension (Allergy Relief (fluticasone)) hydrocodone-acetaminophen 325 mg PO DAILY PRN 10/27/24 07/10/25 metronidazole 0.75 % topical cream 1 applic topical DAILY 10/27/24 07/10/25 furosemide 40 mg tablet 20 mg (1/2 x 40 mg) PO DAILY #30 04/19/25 07/10/25 tabs spironolactone 25 mg tablet 12.5 mg (1/2 x 25 mg) PO DAILY #30 04/19/25 tabs cefpodoxime 200 mg tablet 200 mg PO BID 14 days #28 tabs 07/10/25 Previous Rx's Medication Instructions Recorded sucralfate 1 gram tablet 1 g PO AC & HS #120 tabs 07/23/21 famotidine 40 mg tablet 40 mg PO DAILY #90 tabs 04/28/24 cyclobenzaprine 5 mg tablet 5 mg PO TID PRN #10 tabs 05/05/24 ondansetron 4 mg disintegrating 4 mg PO Q6H PRN nausea and 09/28/24 tablet vomiting #30 tabs furosemide 40 mg tablet 20 mg (1/2 x 40 mg) PO DAILY #30 04/19/25 tabs spironolactone 25 mg tablet 12.5 mg (1/2 x 25 mg) PO DAILY #30 04/19/25 tabs cefpodoxime 200 mg tablet 200 mg PO BID 14 days #28 tabs 07/10/25 Allergies Allergy/AdvReac Type Severity Reaction Status Date / Time metformin Allergy Unknown Unknown Unverified 07/10/25 15:41 tramadol Allergy Unknown Unknown Unverified 07/10/25 15:41 codeine AdvReac Mild Nausea Verified 07/10/25 15:41 diltiazem AdvReac Mild Unknown Verified 07/10/25 15:41 lisinopril AdvReac Mild cough Verified 07/10/25 15:41 pollen extracts AdvReac Topical Verified 07/10/25 15:41 Irritation General Stated Complaint: Chest Pain LACEY: 3 Review of Systems All systems reviewed & are unremarkable except as noted in HPI and below Exam Narrative Exam Narrative: GENERAL APPEARANCE: Well-nourished, non-toxic, awake and alert, atraumatic, mild acute distress. SKIN: Warm, pale, dry, intact, without rashes/lesions/ulcerations. HEAD: Normocephalic, atraumatic, normal hair distribution for gender/age. EYES: Normal conjunctiva, no exudates on lids/lashes. ENT: Nares patent, no circumoral cyanosis, no facial swelling NECK: Supple, trachea midline, painless cervical ROM. LUNGS/CHEST: Lungs CTA bilaterally-no rhonchi/rales/wheezes diffusely, non-labored respirations, normal A/P diameter, symmetrical expansion, no chest wall deformity HEART (CV/PV): Regular rate and rhythm without murmur, no peripheral edema, no JVD. ABDOMEN: Soft, non-distended, no guarding, no tenderness diffusely, no CVA tenderness to percussion bilaterally. MSK: Normal ROM, no swelling/deformity to bilateral UEs or LEs, moving all extremities without weakness, no cyanosis, spine midline with diffuse lumbar tenderness without crepitus or step-off, normal curvature. NEURO: Mental Status AAOx4 - alert to person, place, time, events No facial droop, no forehead involvement, no dysmetria with FNF Motor: No focal weakness - strength 5/5 in bilateral UEs and LEs, proximal and distal, symmetric. Sensory: sensation intact to light touch globally. Gait normal: patient ambulated without ataxia into ED room. PSYCH: euthymic, cooperative, pleasant, appropriate speech-hurried speech tangential Course Vital Signs Vital signs: Vital Signs Temperature 37.0 C 07/10/25 15:35 Pulse 73 07/10/25 15:35 Respiratory Rate 20 07/10/25 15:35 Blood Pressure 152/57 H 07/10/25 15:35 Pulse Oximetry 97 07/10/25 15:35 Temperature 37.0 C 07/10/25 15:35 Pulse 73 07/10/25 15:35 Respiratory Rate 20 07/10/25 15:35 Blood Pressure 152/57 H 07/10/25 15:35 Blood Pressure Position Sitting 07/10/25 15:35 Pulse Oximetry 97 07/10/25 15:35 Oxygen Delivery Method Room Air 07/10/25 15:35 Oxygen Flow Rate 0 07/10/25 15:35 Lab/Test Results Lab/Test Results: 07/10/25 16:11 Urine - Reflex from Ua Urine Culture - Pending Laboratory Tests Range/Units 07/10/25 07/10/25 07/10/25 16:07 16:11 16:27 WBC (4.4-10.8) 10^3/uL 5.52 RBC (3.93-5.22) 10^6/uL 3.17 L Hgb (11.2-15.7) g/dL 7.1 L Hct (36.0-46.0) % 23.7 L MCV (80-95) fL 75 L MCH (27.0-33.0) pg 22.4 L MCHC (32.0-36.0) % 30.0 L RDW (11.7-14.6) % 17.2 H Plt Count (130-400) 10^3/uL 253 MPV (8.0-11.0) fL 10.3 Immature Gran % % 0.4 Neutrophils % % 64.5 Lymphocytes % % 23.4 Monocytes % % 7.4 Eosinophils % % 3.6 Basophils % % 0.7 Nucleated RBC % (0.0-0.3) % 0.0 Absolute Neutrophils (1.2-6.7) 10^3/uL 3.56 Absolute Lymphocytes (1.2-3.4) 10^3/uL 1.29 Absolute Monocytes (0.1-0.8) 10^3/uL 0.41 Absolute Eosinophils (0.0-0.7) 10^3/uL 0.20 Absolute Basophils (0.0-0.2) 10^3/uL 0.04 RBC Morphology See Below Hypochromasia 1+ Poikilocytosis 1+ Microcytosis 1+ D-Dimer (<500) ng/mlFEU 762 H VBG pH (7.31-7.41) 7.37 VBG pCO2 (41-51) mmHg 41 VBG pO2 mmHg 39 VBG HCO3 (23-28) mmol/L 23 VBG Total CO2 (24-29) mmol/L 23 L VBG O2 Saturation % 68 VBG Base Excess (-2-3) mmol/L -2 Sodium (136-145) mmol/L 142 Potassium (3.5-5.1) mmol/L 3.8 Chloride (98-107) mmol/L 107 Carbon Dioxide (20.0-31.0) mmol/L 22.6 Anion Gap (3-11) mmol/L 12.4 H BUN (9-23) mg/dL 28 H Creatinine (0.55-1.02) mg/dL 1.1 H Est GFR (CKD-EPI 2020) (mL/min/1.73m2) 45.78 Glucose (74-106) mg/dL 238 H Calcium (8.3-10.6) mg/dL 8.8 Magnesium (1.6-2.6) mg/dL 1.7 Total Bilirubin (0.2-1.2) mg/dL 1.00 AST (<34) U/L 35 ALT (10-49) U/L 40 Alkaline Phosphatase (46-116) U/L 141 H Troponin I (<35) ng/L 12 NT-Pro-B Natriuret Pep (<300) pg/mL 549 H Total Protein (5.7-8.2) g/dL 7.1 Albumin (3.4-5.0) g/dL 4.3 Urine Color (Yellow) Yellow Urine Clarity (Clear) Clear Urine pH (5-8) 5.5 Ur Specific [place] (1.005-1.025) 1.020 Urine Protein (Neg-Trace) mg/dL 30 H Urine Ketones (Negative) mg/dL Negative Urine Blood (Negative) Small H Urine Nitrite (Negative) Negative Urine Bilirubin (Negative) Negative Urine Urobilinogen (Up to 0.2) mg/dL 0.2 Ur Leukocyte Esterase (Negative) Large H Urine RBC Not Applicable Urine WBC (0-5) HPF >50 H Ur Epithelial Cells Not Applicable Urine Crystals Not Applicable Urine Bacteria Not Applicable Urine Mucus Not Applicable Ur Culture Indicated? Yes Urine Glucose (Negative) mg/dL Negative COVID-19 Source Nasopharynx SARS-CoV-2 (PCR) (Negative) Negative Influenza Type A (PCR) (Negative) Negative Influenza Type B (PCR) (Negative) Negative RSV (PCR) (Negative) Negative Medical Decision Making This dictation utilizes [id number] dictation software and may contain unedited grammatical errors. 84 year-old female presents to ED today by POV/ambulating with a chief complaint of constellation of complaints-states that she has been loopy on baclofen and cyclobenzaprine for her chronic lumbar back pain which is bothering her today and is part of her presentation of visit but she is also concerned that she is urinating a lot and has diabetes and has had multiple antibiotics for UTI recently and does not seem to be getting better, also states that she had a severe sudden onset headache that started a couple days ago and has not fully resolved and that she has had a cough since the start of the pandemic with some palpitations. Quality described as generalized loopiness, acute on chronic low back pain, polyuria without burning sensation and dysuria, no radiation to high fever, crushing chest pain, nausea or vomiting, dysuria, hematuria, numbness or weakness to legs, visual changes, near syncope. Severity is described as unable to quantify. Palliating factors include nothing specific attempted. Provoking factors include nothing specific. Patient notes that she has baseline anemia and has had transfusions in the past. Patients' medical history: CHF, lumbar spinal stenosis, A-fib, aortic stenosis, hypertension, poorly controlled diabetes mellitus, history of NSTEMI, status post TAVR. Family and social history: Lives at home alone, eats a normal diet, no tobacco use. Pertinent exam findings / vital signs include neuro intact, benign cardiopulmonary exam, lumbar paraspinal tenderness, no crepitus or step-off to the spine, no CVA tenderness to percussion bilaterally, neurovascular intact in bilateral lower extremities, benign abdomen Differential / pathologies of concern include renal colic, UTI, chronic lumbar back pain, ICH or thunderclap headache, bronchitis or pneumonia, ACS, electrolyte abnormality, anemia, heart failure exacerbation, UTI, viral syndrome. Diagnostic studies of: - CBC, CMP, D-dimer, VBG, electrolyte abnormality, serial troponins, BNP, UA, respiratory PCR swab, type and screen, CTA head and neck, CT renal colic and lumbar recons, x-ray chest, EKG. - CBC shows pancytopenia with worsening chronic anemia over the long-term currently 7.1 - D-dimer is years criteria negative at 762 also age-adjusted negative - VBG is benign - CMP shows no actionable abnormality - Magnesium within normal limits - Serial troponins negative with reliable onset - BNP is 549 do not suspect severe acute CHF exacerbation - UA shows likely infection with greater than 50 WBCs, giving empiric antibiotics - Respiratory PCR swab negative - Type and screen O+ with negative antibody screen - CTA head and neck is negative for any acute pathology - CT renal colic has no signs of hydronephrosis or ureteral stone and has stable chronic lumbar degenerative changes - X-ray chest is completely benign - EKG shows sinus rhythm at 68 bpm with right bundle branch block with no ischemic changes Interventions of: - 2 g IV ceftriaxone, home dose metoprolol given for rising blood pressures with negative workup for hypertensive emergency. ED Course/Assessment/Plan: 84-year-old female with a myriad of complaints presents likely with a bit of polypharmacy being on both baclofen and cyclobenzaprine for chronic lumbar back pain, her complaints have somewhat of a varying chronicity throughout the visit, has recently failed 2 antibiotics for urinary tract infection which still has greater than 50 WBCs on micro so likely we will treat this. She also has a worsening anemia over the long-term was given 1 unit of packed red blood cells, counseled her to follow-up with her primary care provider and her spine providers to come up with a better plan to manage her back pain but I find no acute emergency from her complaints of headache, flank pain, no signs of systemic infection and her cardiac workup is negative as well as normal chest x-ray with this complaint of cough for 5 years. Findings not consistent with ACS, PE, pneumonia, neurovascular compromise, ureteral stone, infected kidney stone, electrolyte derangement, DKA. Disposition of Anemia, Urinary Tract Infection. Patient verbalized understanding of the plan and return to ED criteria and engaged in shared decision making. Medical Records Medical records reviewed: Yes I reviewed the patient's medical records. Imaging Data Radiologic Study: Attestation: I personally reviewed and interpreted this imaging study as follows: Imaging: CT Scan Radiologist's impression: EXAM: CT BRAIN NECK CTA CLINICAL HISTORY: RUSSELL, acute severe onset days ago. TECHNIQUE: Imaging Protocol: Axial CT angiography was performed with multi-slice acquisition and multi-planar and MIP reconstructions. CONTRAST MATERIAL: Intravenous: Omnipaque 350 Contrast volume:70 ml COMPARISON: CT CT HEAD CERVICAL SPINE WO from 06/14/2024 FINDINGS: CT Head W/O and W contrast: Ventricles and Extra axial spaces: Normal in size and morphology for the patient's age. Hemorrhage: None. Cerebral parenchyma: No evidence of acute infarct or mass. Midline shift: None. Brainstem/Cerebellum: No acute findings.. Calvarium: Normal. Visualized Paranasal sinuses/Mastoids: Opacification of a few ethmoid air cells. Soft Tissues: Unremarkable. Enhancement: Normal. Venous sinuses are patent. CTA Brain W: Internal Carotid Arteries: Calcification at the petrous portion of the internal carotid arteries. Right: No aneurysm, occlusion or significant stenosis. Left: No aneurysm, occlusion or significant stenosis. Middle Cerebral Arteries: Right: No aneurysm, occlusion or significant stenosis. Left: No aneurysm, occlusion or significant stenosis. Anterior Cerebral Arteries: Right: No aneurysm, occlusion or significant stenosis. Left: No aneurysm, occlusion or significant stenosis. Posterior cerebral Arteries: Right: No aneurysm, occlusion or significant stenosis. Left: No aneurysm, occlusion or significant stenosis. Vertebral Arteries: Right: No aneurysm, occlusion or significant stenosis. Left: No aneurysm, occlusion or significant stenosis. Basilar Artery: No aneurysm, occlusion or significant stenosis. CTA Neck W: Visualized aorta: Unremarkable. Visualized pulmonary arteries: Unremarkable. Subclavian arteries: Unremarkable. Common Carotid: Right: No dissection, occlusion or significant stenosis. Left: No dissection, occlusion or significant stenosis. External Carotid: Right: No dissection, occlusion or significant stenosis. Left: No dissection, occlusion or significant stenosis. Internal Carotid: Right: Combination of calcified and noncalcified plaque is noted at the right common carotid bulb and proximal internal carotid artery, causing moderate stenosis. No dissection. Left: Mixed calcific and noncalcific plaque at the common carotid bulb and proximal internal carotid artery causing mild stenosis. No dissection, occlusion or significant stenosis. Vertebral Artery: Right: No dissection, occlusion or significant stenosis. Left: No dissection, occlusion or significant stenosis. Lung Apices: No acute findings. Bones: No acute abnormality. Advanced degenerative changes of the cervical spine. Soft Tissues: Normal. IMPRESSION: 1. CTA brain: Calcification at the petrous portions of the internal carotid arteries but no significant stenosis. 2. Head CT: No acute abnormality. 3. CTA neck: Mixed calcific and noncalcific plaque at the common carotid bulbs and proximal internal carotid arteries. Moderate stenosis at the right proximal internal carotid artery. Mild stenosis of the left proximal internal carotid artery. Radiologic Study #2: Attestation: I personally reviewed and interpreted this imaging study as follows: Imaging: CT Scan Radiologist's impression: EXAM: CT RENAL COLIC WO CLINICAL HISTORY: L flank pain. TECHNIQUE: Imaging Protocol: Axial computed tomography images with coronal and sagittal reformatted images were created and reviewed. CONTRAST MATERIAL: Noncontrast COMPARISON: CT CT CHEST PE ABD PELVIS W from 04/12/[address] LUMBAR SPINE WO from 04/28/[address] HEAD CERVICAL SPINE WO from 06/14/[address] LUMBAR SPINE RECONS from 07/10/2025 FINDINGS: ABDOMEN: Lung Bases: Normal where visualized. Liver: Normal attenuation. No measurable mass. Gallbladder and biliary tract: Cholecystectomy. No biliary dilation. Pancreas: Somewhat atrophic. Normal density, no calcifications or inflammatory process. Spleen: Normal. Kidneys: Normal size, contour and axis. No radiodense stones or obstructive uropathy. No masses seen. Adrenal glands: No masses seen. Abdominal Aorta: Abdominal portion non-dilated. Atherosclerotic calcification. Soft tissues: Small fat containing umbilical hernia. PELVIS: Bladder: Symmetric distention, no gross wall thickening. No evidence of stones.No visible mass. Bowel: No obstruction or bowel wall thickening. Moderate quantity of stool. Appendix normal. Mild diverticulosis. No evidence of diverticulitis. Reproductive: Hysterectomy. Peritoneal cavity: No ascites, collection or mesenteric inflammatory response. Bones: Degenerative changes in the hips and lumbar spine. Schmorl's node again noted at the superior endplate L 2. Endplate osteophytes projecting posteriorly at L1-2 and L2-3. Disc space narrowing at L4-5 with small endplate osteophytes. Facet degenerative changes. 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 Stable findings compared to prior CT. IMPRESSION: No acute abnormality in the abdomen and pelvis. No evidence of hydronephrosis or urinary tract calculi. Stable appearance of degenerative changes of the lumbar spine. Radiologic Study #3: Attestation: I personally reviewed and interpreted this imaging study as follows: Imaging: X-Ray Radiologist's impression: Exam: XR Chest Exam date and time: 07/10/2025 6:53 PM Age: 84 years old Clinical indication: Cough TECHNIQUE: Imaging protocol: Radiologic exam of the chest. Views: 2 views. COMPARISON: CT CHEST PE CTA 04/17/2025 12:10 AM FINDINGS: Lungs: Unremarkable. No consolidation. Pleural spaces: Unremarkable. No pleural effusion. No pneumothorax. Heart/Mediastinum: Unremarkable. No cardiomegaly. Bones/joints: Unremarkable. IMPRESSION: No acute findings. Dictated and Authenticated by: Evi Rodrigues MD. Lab Data Lab results reviewed: Yes I reviewed the patient's lab results. Labs: 07/10/25 16:11 Urine - Reflex from Ua Urine Culture - Pending Laboratory Tests Range/Units 07/10/25 07/10/25 07/10/25 16:07 16:11 16:27 WBC (4.4-10.8) 10^3/uL 5.52 RBC (3.93-5.22) 10^6/uL 3.17 L Hgb (11.2-15.7) g/dL 7.1 L Hct (36.0-46.0) % 23.7 L MCV (80-95) fL 75 L MCH (27.0-33.0) pg 22.4 L MCHC (32.0-36.0) % 30.0 L RDW (11.7-14.6) % 17.2 H Plt Count (130-400) 10^3/uL 253 MPV (8.0-11.0) fL 10.3 Immature Gran % % 0.4 Neutrophils % % 64.5 Lymphocytes % % 23.4 Monocytes % % 7.4 Eosinophils % % 3.6 Basophils % % 0.7 Nucleated RBC % (0.0-0.3) % 0.0 Absolute Neutrophils (1.2-6.7) 10^3/uL 3.56 Absolute Lymphocytes (1.2-3.4) 10^3/uL 1.29 Absolute Monocytes (0.1-0.8) 10^3/uL 0.41 Absolute Eosinophils (0.0-0.7) 10^3/uL 0.20 Absolute Basophils (0.0-0.2) 10^3/uL 0.04 RBC Morphology See Below Hypochromasia 1+ Poikilocytosis 1+ Microcytosis 1+ D-Dimer (<500) ng/mlFEU 762 H VBG pH (7.31-7.41) 7.37 VBG pCO2 (41-51) mmHg 41 VBG pO2 mmHg 39 VBG HCO3 (23-28) mmol/L 23 VBG Total CO2 (24-29) mmol/L 23 L VBG O2 Saturation % 68 VBG Base Excess (-2-3) mmol/L -2 Sodium (136-145) mmol/L 142 Potassium (3.5-5.1) mmol/L 3.8 Chloride (98-107) mmol/L 107 Carbon Dioxide (20.0-31.0) mmol/L 22.6 Anion Gap (3-11) mmol/L 12.4 H BUN (9-23) mg/dL 28 H Creatinine (0.55-1.02) mg/dL 1.1 H Est GFR (CKD-EPI 2020) (mL/min/1.73m2) 45.78 Glucose (74-106) mg/dL 238 H Calcium (8.3-10.6) mg/dL 8.8 Magnesium (1.6-2.6) mg/dL 1.7 Total Bilirubin (0.2-1.2) mg/dL 1.00 AST (<34) U/L 35 ALT (10-49) U/L 40 Alkaline Phosphatase (46-116) U/L 141 H Troponin I (<35) ng/L 12 NT-Pro-B Natriuret Pep (<300) pg/mL 549 H Total Protein (5.7-8.2) g/dL 7.1 Albumin (3.4-5.0) g/dL 4.3 Urine Color (Yellow) Yellow Urine Clarity (Clear) Clear Urine pH (5-8) 5.5 Ur Specific [place] (1.005-1.025) 1.020 Urine Protein (Neg-Trace) mg/dL 30 H Urine Ketones (Negative) mg/dL Negative Urine Blood (Negative) Small H Urine Nitrite (Negative) Negative Urine Bilirubin (Negative) Negative Urine Urobilinogen (Up to 0.2) mg/dL 0.2 Ur Leukocyte Esterase (Negative) Large H Urine RBC Not Applicable Urine WBC (0-5) HPF >50 H Ur Epithelial Cells Not Applicable Urine Crystals Not Applicable Urine Bacteria Not Applicable Urine Mucus Not Applicable Ur Culture Indicated? Yes Urine Glucose (Negative) mg/dL Negative COVID-19 Source Nasopharynx SARS-CoV-2 (PCR) (Negative) Negative Influenza Type A (PCR) (Negative) Negative Influenza Type B (PCR) (Negative) Negative RSV (PCR) (Negative) Negative ABO/Rh Antibody Screen Crossmatch Range/Units 07/10/25 17:21 WBC (4.4-10.8) 10^3/uL RBC (3.93-5.22) 10^6/uL Hgb (11.2-15.7) g/dL Hct (36.0-46.0) % MCV (80-95) fL MCH (27.0-33.0) pg MCHC (32.0-36.0) % RDW (11.7-14.6) % Plt Count (130-400) 10^3/uL MPV (8.0-11.0) fL Immature Gran % % Neutrophils % % Lymphocytes % % Monocytes % % Eosinophils % % Basophils % % Nucleated RBC % (0.0-0.3) % Absolute Neutrophils (1.2-6.7) 10^3/uL Absolute Lymphocytes (1.2-3.4) 10^3/uL Absolute Monocytes (0.1-0.8) 10^3/uL Absolute Eosinophils (0.0-0.7) 10^3/uL Absolute Basophils (0.0-0.2) 10^3/uL RBC Morphology Hypochromasia Poikilocytosis Microcytosis D-Dimer (<500) ng/mlFEU VBG pH (7.31-7.41) VBG pCO2 (41-51) mmHg VBG pO2 mmHg VBG HCO3 (23-28) mmol/L VBG Total CO2 (24-29) mmol/L VBG O2 Saturation % VBG Base Excess (-2-3) mmol/L Sodium (136-145) mmol/L Potassium (3.5-5.1) mmol/L Chloride (98-107) mmol/L Carbon Dioxide (20.0-31.0) mmol/L Anion Gap (3-11) mmol/L BUN (9-23) mg/dL Creatinine (0.55-1.02) mg/dL Est GFR (CKD-EPI 2021) (mL/min/1.73m2) Glucose (74-106) mg/dL Calcium (8.3-10.6) mg/dL Magnesium (1.6-2.6) mg/dL Total Bilirubin (0.2-1.2) mg/dL AST (<34) U/L ALT (10-49) U/L Alkaline Phosphatase (46-116) U/L Troponin I (<35) ng/L 12 NT-Pro-B Natriuret Pep (<300) pg/mL Total Protein (5.7-8.2) g/dL Albumin (3.4-5.0) g/dL Urine Color (Yellow) Urine Clarity (Clear) Urine pH (5-8) Ur Specific [place] (1.005-1.025) Urine Protein (Neg-Trace) mg/dL Urine Ketones (Negative) mg/dL Urine Blood (Negative) Urine Nitrite (Negative) Urine Bilirubin (Negative) Urine Urobilinogen (Up to 0.2) mg/dL Ur Leukocyte Esterase (Negative) Urine RBC Urine WBC (0-5) HPF Ur Epithelial Cells Urine Crystals Urine Bacteria Urine Mucus Ur Culture Indicated? Urine Glucose (Negative) mg/dL COVID-19 Source SARS-CoV-2 (PCR) (Negative) Influenza Type A (PCR) (Negative) Influenza Type B (PCR) (Negative) RSV (PCR) (Negative) ABO/Rh O Positive Antibody Screen NEGATIVE Crossmatch See Detail Quality:SDOH Health Related Social Needs: Health related social needs details not applicable. PFSH All Active Problems (Updated 07/10/25 @ 22:14 by TR Rosas) Urinary tract infection (Acute) Anemia (Chronic) Elevated troponin (Acute) Microcytic anemia (Chronic) Uncontrolled diabetes mellitus with hyperglycemia (Chronic) Acute on chronic heart failure with preserved ejection fraction (HFpEF) (Acute) Acute pulmonary edema with congestive heart failure (Acute) Acute non-ST elevation myocardial infarction (NSTEMI) (Acute) Heart failure (Acute) Lumbar spondylosis (Acute) Mechanical low back pain (Acute) Exposure to COVID-19 virus (Acute ~04/12/23) Acute on chronic diastolic CHF (congestive heart failure), NYHA class 2 (Chronic) Cervical disc herniation (Chronic) Diabetes mellitus (Chronic) S/P TAVR (transcatheter aortic valve replacement) (Chronic) Anemia (Acute) Medical History Palpable mass of lower back Lumbar spinal stenosis Low back pain Spinal stenosis Paroxysmal atrial fibrillation Atherosclerotic cardiovascular disease Aortic stenosis Acute cholecystitis BP (high blood pressure) Degenerative joint disease of right knee Closed fracture of left distal fibula (03/31/19) Surgical History H/O esophagogastroduodenoscopy (~2019) S/P colonoscopy (~2019) History of hysterectomy History of cataract surgery Social History Smoking/Tobacco Use Status: Never Smoking risk assessment performed?: Yes Alcohol Intake: never Drug use: Never Substance use type: does not use Housing: house What type of physical activity do you participate in: additional Details: PT to start Do you feel safe at home: Yes Do you feel safe in your relationship?: Yes
[2025-07-10] MEDS: cefTRIAXone 2 GM/50 ML BAG IVPB (17:28)
[2025-07-10 17:56] LABS: Troponin I 12 ng/L (<35)
[2025-07-10] MEDS: Acetaminophen 500 MG TAB 1000 MG PO (18:55)
--- NOTE | 2025-07-10 18:56 | DI.RAD_ITS ---
Exam(s) XR CHEST 2V PA LATERAL EXAM: XR CHEST 2V PA LATERAL CLINICAL HISTORY: cough. TECHNIQUE: 2D digital imaging was performed. COMPARISON: CR,XR XR PORTABLE CHEST AP from 04/16/2025 FINDINGS: 2 views: Heart size is upper normal. Aortic valve TAVR again noted. The mediastinum is not widened. There is presently no evidence of pulmonary edema, as was evident on 04/16/2025. However, there is platelike atelectasis in the right lower lobe posterior basal segment seen to the right hemidiaphragm. There are no pleural effusions. IMPRESSION: Right lung base platelike atelectasis. Aortic valve TAVR. No evidence of pulmonary edema (as was evident on 04/16/2025) DATA REPOSITORY: RADIATION DOSE DELIVERED:
--- NOTE | 2025-07-10 19:32 | DI.[facility]_ITS ---
PROCEDURE INFORMATION: Exam: XR Chest Exam date and time: 07/10/2025 6:53 PM Age: 84 years old Clinical indication: Cough TECHNIQUE: Imaging protocol: Radiologic exam of the chest. Views: 2 views. COMPARISON: CT CHEST PE CTA 04/17/2025 12:10 AM FINDINGS: Lungs: Unremarkable. No consolidation. Pleural spaces: Unremarkable. No pleural effusion. No pneumothorax. Heart/Mediastinum: Unremarkable. No cardiomegaly. Bones/joints: Unremarkable. IMPRESSION: No acute findings. Dictated and Authenticated by: Evi Rodrigues MD. Orderin Sarah Mittal MD
[2025-07-10] MEDS: Metoprolol CR 50 MG TABCR 200 MG PO (21:13)
--- NOTE | 2025-07-12 09:01 | NUR.NOTE ---
Accessed Pt chart to document the antibiotic given to Pt upon discharge. This was documented on the Specimen Report and given to the Providers
[2025-07-13 11:08] LABS: Lyme Ab w Rflx to Lyme Confirm Negative (Negative)
[2025-07-14 15:08] LABS: B. miyamotoi PCR Negative (Negative); Babesia divergens/MO-1 Negative (Negative); Ehrlichia muris eauclairensis Negative (Negative)
== END 2025-07-10 22:14 | disposition home or self-care (01) ==
PROVIDERS: Emergency Provider Physician Assistant; PCP Family Medicine
DX: D64.9 Anemia, unspecified (principal); N39.0 Urinary tract infection, site not specified
CPT/HCPCS: 99284; 99285; 36415; 70496; 70498; 80053; 82805; 86850; 86900; 86901; 86920; 87077; 87637; 87798; 93005; 96365; 96366; 71046; 74176; 81003; 81015; 83735; 83880; 84484; 85025; 85379; 86618; 87086; 87186; 93010; J0696; J3490; P9016

== ENCOUNTER 2025-07-16 18:22 | Outpatient (REF) | payer MEDICARE, SELFPAY ==
[2025-07-16 20:25] LABS: HCT 31.6 % (36.0-46.0); HGB 9.3 g/dL (11.2-15.7); MCH 23.1 pg (27.0-33.0); MCHC 29.4 % (32.0-36.0); MCV 78 fL (80-95); Platelet Count 56 10^3/uL (130-400); RBC 4.03 10^6/uL (3.93-5.22); RDW 17.2 % (11.7-14.6); RDW-SD 49.4 fL; WBC 5.82 10^3/uL (4.4-10.8)
== END 2025-07-16 18:23 | disposition home or self-care (01) ==
LOC: NCHCN 18:22
PROVIDERS: PCP Family Medicine; Visit Provider Family Medicine
DX: D64.9 Anemia, unspecified (principal)
CPT/HCPCS: 85027

== ENCOUNTER 2025-08-11 17:38 | Emergency (ER) | payer MEDICARE, SELFPAY ==
[2025-08-11] VITALS (45 sets, daily range): BP systolic 136–258; BP diastolic 40–82; PULSE 54–77; RESP 11–22; TEMP 37; O2SAT 92–99
--- NOTE | 2025-08-11 17:30 | RT.EKG_ITS ---
APPROVED REPORT Exam: Resting ECG Reason for Exam: Dizzy Patient Location: E HR:69 bpm ECG Measurements Heart Rate 69 AXIS MI 171 P 35 QRSd 150 QRS -75 QT 479 T 74 QTc 515 Conclusion Sinus rhythm...normal P axis, V-rate 60- 99 RBBB and LAFB...QRSd >120mS, axis(-40,240) Left ventricular hypertrophy...multiple voltage criteria
--- NOTE | 2025-08-11 18:15 | DI.RAD_ITS ---
Exam(s) XR CHEST 2V PA LATERAL EXAM: XR CHEST 2V PA LATERAL CLINICAL HISTORY: dizziness TECHNIQUE: 2D digital imaging was performed. Two views. COMPARISON: CR,XR XR CHEST 2V PA LATERAL from 07/10/2025 FINDINGS: HEART: Mildly enlarged, unchanged. Aorta: Not dilated. TAVR. Calcification at arch. PULMONARY VASCULATURE: Normal. MEDIASTINUM: Unremarkable. LUNGS: Clear. PLEURAL SPACE: No pleural effusion or pneumothorax. BONE:Unremarkable for age. SOFT TISSUES: Unremarkable. IMPRESSION: No acute abnormality. The preliminary [facility] report was reviewed. DATA REPOSITORY: RADIATION DOSE DELIVERED:
--- NOTE | 2025-08-11 18:15 | DI.CT_ITS ---
Exam(s) CT BRAIN NECK CTA EXAM: CT BRAIN NECK CTA CLINICAL HISTORY: sudden vertigo, headache. TECHNIQUE: Imaging Protocol: Axial CT angiography was performed with multi- slice acquisition and multi-planar and MIP reconstructions. CONTRAST MATERIAL: Intravenous: Omnipaque 350 Contrast volume:70 ml COMPARISON: CT CT CERVICAL SPINE WO from 05/25/[address] BRAIN NECK CTA from 07/10/2025 FINDINGS: CT Head W/O and W contrast: Ventricles and Extra axial spaces: Normal in size and morphology for the patient's age. Hemorrhage: None. Cerebral parenchyma: No evidence of acute infarct or mass. Mild atrophy. Mild white matter changes consistent with small vessel disease. Midline shift: None. Brainstem/Cerebellum: No acute findings.. Calvarium: Normal. Visualized Paranasal sinuses/Mastoids: Opacification of a few left ethmoid sinuses peer Soft Tissues: Unremarkable. Enhancement: Normal. Venous sinuses are patent. CTA Brain W: Internal Carotid Arteries: Right: No aneurysm, occlusion or significant stenosis. Left: No aneurysm, occlusion or significant stenosis. Middle Cerebral Arteries: Right: No aneurysm, occlusion or significant stenosis. Left: No aneurysm, occlusion or significant stenosis. Anterior Cerebral Arteries: Right: No aneurysm, occlusion or significant stenosis. Left: No aneurysm, occlusion or significant stenosis. Posterior cerebral Arteries: Right: No aneurysm, occlusion or significant stenosis. Left: No aneurysm, occlusion or significant stenosis. Vertebral Arteries: Right: No aneurysm, occlusion or significant stenosis. Left: No aneurysm, occlusion or significant stenosis. Basilar Artery: No aneurysm, occlusion or significant stenosis. CTA Neck W: Visualized aorta: Unremarkable. Visualized pulmonary arteries: Unremarkable. Subclavian arteries: Unremarkable. Common Carotid: Right: No dissection, occlusion or significant stenosis. Left: No dissection, occlusion or significant stenosis. External Carotid: Right: No dissection, occlusion or significant stenosis. Left: Moderate stenosis at the origin. No dissection, occlusion or significant stenosis. Internal Carotid: Right: Calcific plaque proximally causing approximately 50 percent stenosis. No dissection, occlusion or significant stenosis. Left: Calcific plaque proximally causing approximately 50 percent stenosis. No dissection, occlusion or significant stenosis. Vertebral Artery: Right: No dissection, occlusion or significant stenosis. Left: No dissection, occlusion or significant stenosis. Lung Apices: No acute findings. Bones: No acute abnormality. Degenerative changes in the cervical spine. Soft Tissues: Stable left thyroid nodules. No follow-up recommended. IMPRESSION: 1. CTA brain: Normal CTA examination of the [place]. 2. Head CT: No acute abnormality. 3. CTA neck: Plaque at the proximal internal carotid arteries causing moderate stenosis. The preliminary [facility] report was reviewed. RADIATION DOSE DELIVERED: 1,999.62mGy.cm Total DLP DATA REPOSITORY: All CT scans at this facility are submitted to the National Radiology Data Registry (NRDR) Dose Index Registry (DIR) with the [employer] ([employer]). RADIATION OPTIMIZATION: All CT scans at this facility use at least one of these dose optimization techniques: automated exposure control; mA and/or kV adjustment per patient size (includes targeted exams where dose is matched to clinical indication); or iterative reconstruction.
--- NOTE | 2025-08-11 18:34 | W.ED.GENAD ---
Discharge Plan Disposition Patient Disposition: Transfer-Acute Inpatient Care Specific Acute Inpt Facility: Other Condition: Stable Discharge Details Clinical Impression: Hypertensive emergency Primary Care Provider: Regis Muller ED Provider: Kyrie Smith Home Meds and New Rx's Prescriptions: Continued fluticasone propionate [Allergy Relief (fluticasone)] 50 mcg/actuation spray,suspension 1 spray intranasal BID Rx Instructions: administer into each nostril hydrocodone-acetaminophen 325 mg PO DAILY PRN Patient Comments: prn metronidazole 0.75 % cream 1 applic topical DAILY ferrous gluconate 324 mg (37.5 mg iron) tablet 324 mg PO DAILY amiodarone [Pacerone] 200 mg tablet 200 mg PO BID insulin glargine [Lantus U-100 Insulin] 100 UNITS/ML solution 25 unit Sub-Q BID Humalog U-100 Insulin 100 UNIT/ML cartridge 15 unit Sub-Q TID ascorbic acid (vitamin C) [Vitamin C] 1,000 mg Tablet 1,000 mg PO DAILY Multi For Her 18 mg iron-600 mcg-40 mcg Capsule 1 tab-cap PO DAILY pantoprazole [Protonix] 40 mg Tablet,Delayed Release (Dr/Ec) 40 mg PO BID rosuvastatin 20 mg Tablet 20 mg PO HS clopidogrel [Plavix] 75 mg tablet 75 mg PO DAILY metoprolol succinate 100 mg tablet extended release 24 hr 200 mg PO QHS amitriptyline 10 mg tablet 10 mg PO DIRECTED Patient Comments: TAKE ONE-HALF TO TWO TABLETS BY MOUTH AT BEDTIME Rx Instructions: 1/2 -2 tablets every night glipizide 5 mg tablet 5 mg PO DAILY Patient Comments: TAKE ONE TABLET BY MOUTH EVERY DAY sucralfate 1 gram Tablet 1 g PO AC & HS Qty: 120 0RF gabapentin 100 mg capsule 100 mg PO TID Patient Comments: TAKE ONE CAPSULE BY MOUTH THREE TIMES A DAY famotidine 40 mg tablet 40 mg PO DAILY Qty: 90 0RF furosemide 40 mg Tablet 20 mg PO DAILY Qty: 30 0RF spironolactone 25 mg tablet 12.5 mg PO DAILY Qty: 30 0RF vitamin B complex [B Complex-Vitamin B12] 1 EACH tablet 1 ea PO DAILY cholecalciferol (vitamin D3) [Vitamin D3] 1,000 UNIT capsule 1,000 unit PO DAILY losartan 100 MG tablet 100 mg PO HS (DME) OneTouch Ultra Test Strip MISCELLANEOUS Patient Comments: TEST THREE TIMES A DAY cyclobenzaprine 5 mg tablet 5 mg PO TID PRNQty: 10 0RF ondansetron 4 mg tablet,disintegrating 4 mg PO Q6H PRN (Reason: nausea and vomiting) Qty: 30 0RF Patient Comments: prn Discharge Instructions Stand Alone Forms: Portal Information Referrals: Regis Muller MD [Primary Care Provider, Medicine] HPI General Date/Time Provider Initiated Documentation: 08/11/25 18:04. HPI Narrative: 84 year-old female presents to ED today by EMS with a chief complaint of nausea, vomiting, near syncope and dizziness starting last night and persisting all day today, with some diarrhea. Quality described as room spinning very frequently, hasn't been able to take her meds, and reports a headache last night, no radiation to fever, cough, chest pain, shortness of breath, endorses abdominal discomfort, denies dysuria, denies black/bloody stools. Severity is described as severe for dizziness. Palliating factors include nothing specific attempted. Provoking factors include positional changes. Events leading up to the incident/Associated Symptoms: Patient wonders if this was from eating fish last night. Patient not anticoagulated, is on DAPT. Related Data Home Medications ?Medication ?Instructions ?Recorded ?Confirmed insulin glargine 100 unit/mL 25 unit subcut BID 11/28/15 08/11/25 subcutaneous solution (Lantus U-100 Insulin) insulin lispro 100 unit/mL 15 unit subcut TID 11/28/15 08/11/25 subcutaneous cartridge (Humalog U-100 Insulin) cholecalciferol (vitamin D3) 25 1,000 unit PO DAILY 01/30/18 08/11/25 mcg (1,000 unit) capsule (Vitamin D3) losartan 100 mg tablet 100 mg PO HS 01/30/18 08/11/25 vitamin B complex (B 1 ea PO DAILY 01/30/18 08/11/25 Complex-Vitamin B12 tablet) ascorbic acid (vitamin C) 1,000 mg 1,000 mg PO DAILY 04/14/20 08/11/25 tablet (Vitamin C) [id number] fumarate 18 1 tab-cap PO DAILY 04/14/20 08/11/25 mg-FA 600 mcg-vit K 40 mcg capsule (Multi For Her) pantoprazole 40 mg tablet,delayed 40 mg PO BID 06/10/20 08/11/25 release (Protonix) rosuvastatin 20 mg tablet 20 mg PO HS 06/10/20 08/11/25 amiodarone 200 mg tablet (Pacerone) 200 mg PO BID 11/05/20 08/11/25 clopidogrel 75 mg tablet (Plavix) 75 mg PO DAILY 11/05/20 08/11/25 ferrous gluconate 324 mg (37.5 mg 324 mg PO DAILY 11/05/20 08/11/25 iron) tablet amitriptyline 10 mg tablet 10 mg PO DIRECTED 07/22/21 08/11/25 glipizide 5 mg tablet 5 mg PO DAILY 07/22/21 08/11/25 metoprolol succinate 100 mg 200 mg PO QHS 07/22/21 08/11/25 tablet,extended release 24 hr sucralfate 1 gram tablet 1 g PO AC & HS #120 tabs 07/23/21 08/11/25 blood sugar diagnostic (Oneuch 03/17/24 08/11/25 Ultra Test strips) famotidine 40 mg tablet 40 mg PO DAILY #90 tabs 04/28/24 08/11/25 gabapentin 100 mg capsule 100 mg PO TID 04/28/24 08/11/25 cyclobenzaprine 5 mg tablet 5 mg PO TID PRN #10 tabs 05/05/24 08/11/25 ondansetron 4 mg disintegrating 4 mg PO Q6H PRN nausea and 09/28/24 08/11/25 tablet vomiting #30 tabs fluticasone propionate 50 1 spray intranasal BID 10/27/24 08/11/25 mcg/actuation nasal spray,suspension (Allergy Relief (fluticasone)) hydrocodone-acetaminophen 325 mg PO DAILY PRN 10/27/24 08/11/25 metronidazole 0.75 % topical cream 1 applic topical DAILY 10/27/24 08/11/25 furosemide 40 mg tablet 20 mg (1/2 x 40 mg) PO DAILY #30 04/19/25 08/11/25 tabs spironolactone 25 mg tablet 12.5 mg (1/2 x 25 mg) PO DAILY #30 04/19/25 08/11/25 tabs Previous Rx's ?Medication ?Instructions ?Recorded sucralfate 1 gram tablet 1 g PO AC & HS #120 tabs 07/23/21 famotidine 40 mg tablet 40 mg PO DAILY #90 tabs 04/28/24 cyclobenzaprine 5 mg tablet 5 mg PO TID PRN #10 tabs 05/05/24 ondansetron 4 mg disintegrating 4 mg PO Q6H PRN nausea and 09/28/24 tablet vomiting #30 tabs furosemide 40 mg tablet 20 mg (1/2 x 40 mg) PO DAILY #30 04/19/25 tabs spironolactone 25 mg tablet 12.5 mg (1/2 x 25 mg) PO DAILY #30 04/19/25 tabs Allergies Allergy/AdvReac Type Severity Reaction Status Date / Time metformin Allergy Unknown Unknown Unverified 08/11/25 17:53 tramadol Allergy Unknown Unknown Unverified 08/11/25 17:53 codeine AdvReac Mild Nausea Verified 08/11/25 17:53 diltiazem AdvReac Mild Unknown Verified 08/11/25 17:53 lisinopril AdvReac Mild cough Verified 08/11/25 17:53 pollen extracts AdvReac Topical Verified 08/11/25 17:53 Irritation General Stated Complaint: Dizzy/Sync LACEY: 3 Review of Systems All systems reviewed & are unremarkable except as noted in HPI and below Exam Narrative Exam Narrative: GENERAL APPEARANCE: Well-nourished, non-toxic, awake and alert, atraumatic, no acute distress. SKIN: Warm, pink, dry, intact, without rashes/lesions/ulcerations. HEAD: Normocephalic, atraumatic, normal hair distribution for gender/age. EYES: Normal conjunctiva, no exudates on lids/lashes, EOMs intact without nystagmus ENT: Nares patent, no circumoral cyanosis, no facial swelling NECK: Supple, trachea midline, painless cervical ROM. LUNGS/CHEST: Lungs CTA bilaterally-no rhonchi/rales/wheeze diffusely, non-labored respirations, normal A/P diameter, symmetrical expansion, no chest wall deformity HEART (CV/PV): Regular rate and rhythm without murmur, no peripheral edema, no JVD. ABDOMEN: Soft, non-distended, no guarding, no tenderness, incidental finding of very small rectal prolapse while patient was toileting MSK: Normal ROM, no swelling/deformity to bilateral UEs or LEs, moving all extremities without weakness, no cyanosis, spine midline without tenderness, normal curvature. NEURO: Mental Status AAOx4 - alert to person, place, time, events No facial droop, no forehead involvement, no dysmetria with cerebellar testing, normal FNF, normal heel roach Motor: No focal weakness - strength 5/5 in bilateral UEs and LEs, proximal and distal, symmetric. Sensory: sensation intact to light touch globally. Gait NT PSYCH: euthymic, cooperative, pleasant, appropriate speech Course Vital Signs Vital signs: Vital Signs Temperature 37.0 C 08/11/25 17:46 Pulse 70 08/11/25 17:46 Respiratory Rate 20 08/11/25 17:46 Blood Pressure 228/80 H 08/11/25 17:46 Pulse Oximetry 96 08/11/25 17:46 Temperature 37.0 C 08/11/25 17:46 Pulse 70 08/11/25 17:46 Respiratory Rate 20 08/11/25 17:46 Blood Pressure 228/80 H 08/11/25 17:46 Blood Pressure Position Sitting 08/11/25 17:46 Pulse Oximetry 96 08/11/25 17:46 Oxygen Delivery Method Room Air 08/11/25 17:46 Oxygen Flow Rate 0 08/11/25 17:46 Medical Decision Making This dictation utilizes [id number] dictation software and may contain unedited grammatical errors. 84 year-old female presents to ED today by EMS with a chief complaint of nausea, vomiting, near syncope and dizziness starting last night and persisting all day today, with some diarrhea. Quality described as room spinning very frequently, hasn't been able to take her meds, and reports a headache last night, no radiation to fever, cough, chest pain, shortness of breath, endorses abdominal discomfort, denies dysuria, denies black/bloody stools. Severity is described as severe for dizziness. Palliating factors include nothing specific attempted. Provoking factors include positional changes. Events leading up to the incident/Associated Symptoms: Patient wonders if this was from eating fish last night. Patient not anticoagulated, is on DAPT. Patients' medical history: Lumbar spinal stenosis, A-fib, aortic stenosis, hypertension, CHF, history of NSTEMI, diabetes mellitus, status post TAVR, anemia. Family and social history: Lives at home alone, no recent travel or sick contacts, denies drug or alcohol use. Pertinent exam findings / vital signs include no dysmetria with cerebellar testing, hints exam negative, no focal weakness, sensation intact, no slurred speech, benign cardiopulmonary exam, benign abdomen, extremely hypertensive 220s+ systolic. Differential / pathologies of concern include CVA, ICH, hypertensive emergency, PRES, gastroenteritis, electrolyte abnormality. Diagnostic studies of: - CBC, CMP, lactate, lipase, troponin, magnesium, TSH, UA, respiratory PCR swab, CTA brain and neck, x-ray chest, EKG. - CBC shows no leukocytosis, shows baseline anemia 10.5 improved from priors, no left shift - Lactate 1.1 do not suspect sepsis/ - CMP without electrolyte abnormality, mild elevation in LFTs possible in the setting of vomiting - Lipase negative - Magnesium within normal limits - Troponin negative with reliable onset - TSH within normal limits - UA benign - Respiratory PCR swab negative - CTA brain and neck shows bilateral 50% stenosis of the carotids as well as a 3.1 cm heterogeneous mass in the thyroid recommends outpatient ultrasound - X-ray chest negative - EKG shows sinus rhythm at 69 bpm with P waves followed by narrow complex QRS with left axis deviation, right bundle branch block, no ST abnormalities, no T wave abnormalities, consistent with priors Interventions of: -1L IVF NS, 25mg PO meclizine, Teleneuro consult. - Added home PO HTN meds of 200mg metoprolol and 100mg losartan - Teleneuro consult complete @ 2156 - recommends admit for MRI/ECHO, unclear etiology whether it be PRES or HTNsive emergency, patient had already received normal home-dose PO metoprolol & losartan at 2049- will use IV labetalol cautiously at this point. - Due to capacity, [facility] will be looking for lateral transfer for MRI/ECHO - potential for [facility] to have MRI and ECHO availability tomorrow, and they have capacity. Awaiting hospitalist callback at sign-out. - 20mg IV labetalol @ 2229 push dose, patient not on IV drip medications at this time, reports symptoms improved from earlier today. ED Course/Assessment/Plan: 84-year-old female presents with nausea and vomiting with mild headache presenting last night after possibly eating some bad fish, the vomiting continued all day today it is unclear whether this caused vertigo or she developed severe vertigo during this which is causing the vomiting, no active vomiting here in the ED. Her systolics have been 220s to 250 systolic indicating possible hypertensive emergency versus PRES, needs admit for MRI/ECHO. Teleneurology consult has no other recommendations besides blood pressure control and admission, patient has been comfortable without any vertigo or vomiting at rest and has a nonfocal neuroexam. Patient signed out to Dr. 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 Disposition of Hypertensive Emergency. Patient verbalized understanding of the plan and return to ED criteria and engaged in shared decision making. Medical Records Medical records reviewed: Yes I reviewed the patient's medical records. Imaging Data Radiologic Study: Attestation: I personally reviewed and interpreted this imaging study as follows: Imaging: CT Scan Radiologist's impression: Exam: CTA Head Without And With Contrast, Arteriography Exam date and time: 08/11/2025 7:49 PM Age: 84 years old Clinical indication: Stroke-like symptoms; Headache and other: Vertigo; Additional info: Sudden vertigo, headache TECHNIQUE: Imaging protocol: Computed tomographic angiography of the head without and with contrast. Exam focused on the arteries. 3D rendering (Not supervised by radiologist): MIP and/or 3D reconstructed images were created by the technologist. Radiation optimization: All CT scans at this facility use at least one of these dose optimization techniques: automated exposure control; mA and/or kV adjustment per patient size (includes targeted exams where dose is matched to clinical indication); or iterative reconstruction. Contrast material: OMNIPAQUE 350; Contrast volume: 70 ml; Contrast route: INTRAVENOUS (IV); Other technique: STROKE PROTOCOL was implemented. COMPARISON: CT BRAIN NECK CTA 07/10/2025 4:54 PM FINDINGS: ANTERIOR CIRCULATION: Right internal carotid artery: Intracranial segment is patent with no significant stenosis or occlusion. No aneurysm. Right middle cerebral artery: No occlusion or significant stenosis. No aneurysm. Right anterior cerebral artery: No occlusion or significant stenosis. No aneurysm. Left internal carotid artery: Intracranial segment is patent with no significant stenosis. No aneurysm. Left middle cerebral artery: No occlusion or significant stenosis. No aneurysm. Left anterior cerebral artery: No occlusion or significant stenosis. No aneurysm. POSTERIOR CIRCULATION: Right vertebral artery: No occlusion or significant stenosis. No aneurysm. Left vertebral artery: No occlusion or significant stenosis. No aneurysm. Basilar artery: No occlusion or significant stenosis. No aneurysm. Right posterior cerebral artery: No occlusion or significant stenosis. No aneurysm. Left posterior cerebral artery: No occlusion or significant stenosis. No aneurysm. HEAD: Brain: Mild nonspecific hypodensities of the periventricular and deep subcortical white matter, most likely secondary to chronic microangiopathic ischemic change. No intracranial hemorrhage or extra-axial fluid collection. No evidence of mass effect or midline shift. Mccarthy-white matter differentiation is normal. Cerebral ventricles: Mild prominence of the ventricles and sulci, most likely attributed to parenchymal volume loss. Bones: Unremarkable. No acute fracture. Paranasal sinuses: Visualized sinuses are normal. No fluid levels. Mastoid air cells: Visualized mastoids are normal. No mastoid effusion. Soft tissues: Unremarkable. IMPRESSION: 1. No intracranial arterial occlusion or significant stenosis. 2. No acute findings on non-contrast Head CT images. ASPECTS score 10. 3. Chronic findings, as above. PROCEDURE INFORMATION: Exam: CTA Neck With Contrast Exam date and time: 08/11/2025 7:49 PM Age: 84 years old Clinical indication: Stroke-like symptoms; Headache and other: Vertigo; Additional info: Sudden vertigo, headache TECHNIQUE: Imaging protocol: Computed tomographic angiography of the neck with contrast. Exam focused on the cervical segments of the vasculature. 3D rendering (Not supervised by radiologist): MIP and/or 3D reconstructed images were created by the technologist. Radiation optimization: All CT scans at this facility use at least one of these dose optimization techniques: automated exposure control; mA and/or kV adjustment per patient size (includes targeted exams where dose is matched to clinical indication); or iterative reconstruction. Contrast material: OMNIPAQUE 350; Contrast volume: 70 ml; Contrast route: INTRAVENOUS (IV); COMPARISON: CT BRAIN NECK CTA 07/10/2025 4:54 PM FINDINGS: Right common carotid artery: No significant stenosis. No dissection or occlusion. Right internal carotid artery: Atherosclerotic plaques within the proximal extracranial right internal carotid artery cause approximately 50 % stenosis by NASCET criteria. Remaining portions of the extracranial right ICA are patent. Right external carotid artery: No occlusion or significant stenosis. Left common carotid artery: No significant stenosis. No dissection or occlusion. Left internal carotid artery: Atherosclerotic plaques within the proximal extracranial left internal carotid artery cause approximately 50 % stenosis by NASCET criteria. Remaining portions of the extracranial left ICA are patent. Left external carotid artery: Moderate stenosis of the origin of the left external carotid artery. Right vertebral artery: No significant stenosis. No dissection or occlusion. Left vertebral artery: No significant stenosis. No dissection or occlusion. Thyroid: 3.1 cm heterogeneous mass within the left lobe of the thyroid gland. Soft tissues: Unremarkable. Bones/joints: No acute fracture. IMPRESSION: 1. No occlusion or severe stenosis in the arteries of the neck. 2. 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 3. 3.1 cm heterogeneous mass within the left lobe of the thyroid gland. Recommend further evaluation with nonemergent thyroid ultrasound. REFERENCES: NASCET CRITERIA. The degree of stenosis in the cervical segment of the internal carotid artery is based on NASCET criteria. Normal is no stenosis. Mild is less than 50% stenosis. Moderate is 50-69% stenosis. Severe is 70% to 99% stenosis. Total occlusion is no detectable patent lumen. Dictated and Authenticated by: Dez Wagner MD. Radiologic Study #2: Attestation: I personally reviewed and interpreted this imaging study as follows: Imaging: X-Ray Radiologist's impression: Exam: XR Chest Exam date and time: 08/11/2025 8:09 PM Age: 84 years old Clinical indication: Dizziness; Additional info: Sudden vertigo, headache TECHNIQUE: Imaging protocol: Radiologic exam of the chest. Views: 2 views. COMPARISON: CR XR CHEST 2V PA LATERAL 07/10/2025 6:53 PM FINDINGS: Lungs: No focal areas of consolidation. Pleural spaces: No pleural effusion. No pneumothorax. Heart/Mediastinum: Cardiac and mediastinal silhouettes are unremarkable. Bones/joints: No acute osseus lesion or fracture. IMPRESSION: No acute cardiopulmonary findings. Dictated and Authenticated by: Dez Wagner MD. Lab Data Lab results reviewed: Yes I reviewed the patient's lab results. Labs: Laboratory Tests Range/Units 08/11/25 08/11/25 08/11/25 18:38 18:55 19:05 WBC (4.4-10.8) 10^3/uL 7.64 RBC (3.93-5.22) 10^6/uL 4.55 Hgb (11.2-15.7) g/dL 10.5 L Hct (36.0-46.0) % 34.7 L MCV (80-95) fL 76 L MCH (27.0-33.0) pg 23.1 L MCHC (32.0-36.0) % 30.3 L RDW (11.7-14.6) % 19.7 H Plt Count (130-400) 10^3/uL 252 MPV (8.0-11.0) fL 10.1 Immature Gran % % 0.5 Neutrophils % % 77.4 Lymphocytes % % 14.5 Monocytes % % 6.0 Eosinophils % % 0.8 Basophils % % 0.8 Nucleated RBC % (0.0-0.3) % 0.0 Absolute Neutrophils (1.2-6.7) 10^3/uL 5.91 Absolute Lymphocytes (1.2-3.4) 10^3/uL 1.11 L Absolute Monocytes (0.1-0.8) 10^3/uL 0.46 Absolute Eosinophils (0.0-0.7) 10^3/uL 0.06 Absolute Basophils (0.0-0.2) 10^3/uL 0.06 VBG Lactate (<or=2.0) mmol/L 1.1 Sodium Cancelled 142 Potassium Cancelled 3.8 Chloride Cancelled 107 Carbon Dioxide Cancelled 25.6 Anion Gap Cancelled 9.4 BUN Cancelled 16 Creatinine Cancelled 0.78 Est GFR (CKD-EPI 2020) Cancelled 70.21 Glucose Cancelled 152 H Calcium Cancelled 9.0 Magnesium Cancelled 1.8 Total Bilirubin Cancelled 1.1 AST Cancelled 46 H ALT Cancelled 61 H Alkaline Phosphatase Cancelled 120 H Troponin I Cancelled 17 Total Protein Cancelled 7.1 Albumin Cancelled 4.3 Lipase Cancelled 26 TSH Cancelled 1.72 Urine Color (Yellow) Urine Clarity (Clear) Urine pH (5-8) Ur Specific [place] (1.005-1.025) Urine Protein (Neg-Trace) mg/dL Urine Ketones (Negative) mg/dL Urine Blood (Negative) Urine Nitrite (Negative) Urine Bilirubin (Negative) Urine Urobilinogen (Up to 0.2) mg/dL Ur Leukocyte Esterase (Negative) Urine RBC (0-2) HPF Urine WBC (0-5) HPF Ur Epithelial Cells (Negative) HPF Urine Crystals (Negative) HPF Urine Bacteria (Negative) HPF Urine Casts (Negative) LPF Urine Mucus (Negative) Ur Culture Indicated? Urine Glucose (Negative) mg/dL COVID-19 Source Nasopharynx SARS-CoV-2 (PCR) (Negative) Negative Influenza Type A (PCR) (Negative) Negative Influenza Type B (PCR) (Negative) Negative RSV (PCR) (Negative) Negative Range/Units 08/11/25 19:46 WBC (4.4-10.8) 10^3/uL RBC (3.93-5.22) 10^6/uL Hgb (11.2-15.7) g/dL Hct (36.0-46.0) % MCV (80-95) fL MCH (27.0-33.0) pg MCHC (32.0-36.0) % RDW (11.7-14.6) % Plt Count (130-400) 10^3/uL MPV (8.0-11.0) fL Immature Gran % % Neutrophils % % Lymphocytes % % Monocytes % % Eosinophils % % Basophils % % Nucleated RBC % (0.0-0.3) % Absolute Neutrophils (1.2-6.7) 10^3/uL Absolute Lymphocytes (1.2-3.4) 10^3/uL Absolute Monocytes (0.1-0.8) 10^3/uL Absolute Eosinophils (0.0-0.7) 10^3/uL Absolute Basophils (0.0-0.2) 10^3/uL VBG Lactate (<or=2.0) mmol/L Sodium Potassium Chloride Carbon Dioxide Anion Gap BUN Creatinine Est GFR (CKD-EPI 2020) Glucose Calcium Magnesium Total Bilirubin AST ALT Alkaline Phosphatase Troponin I Total Protein Albumin Lipase TSH Urine Color (Yellow) Yellow Urine Clarity (Clear) Clear Urine pH (5-8) 6.5 Ur Specific [place] (1.005-1.025) 1.025 Urine Protein (Neg-Trace) mg/dL 100 H Urine Ketones (Negative) mg/dL Trace H Urine Blood (Negative) Trace-lysed H Urine Nitrite (Negative) Negative Urine Bilirubin (Negative) Negative Urine Urobilinogen (Up to 0.2) mg/dL 0.2 Ur Leukocyte Esterase (Negative) Negative Urine RBC (0-2) HPF 3-5 H Urine WBC (0-5) HPF 0-2 Ur Epithelial Cells (Negative) HPF Few Urine Crystals (Negative) HPF Negative Urine Bacteria (Negative) HPF Moderate Urine Casts (Negative) LPF Negative Urine Mucus (Negative) Negative Ur Culture Indicated? No Urine Glucose (Negative) mg/dL 100 H COVID-19 Source SARS-CoV-2 (PCR) (Negative) Influenza Type A (PCR) (Negative) Influenza Type B (PCR) (Negative) RSV (PCR) (Negative) Quality:SDOH Health Related Social Needs: Health related social needs details not applicable. PFSH All Active Problems (Updated 08/11/25 @ 22:02 by TR Rosas) Hypertensive emergency (Acute) Elevated troponin (Acute) Microcytic anemia (Chronic) Uncontrolled diabetes mellitus with hyperglycemia (Chronic) Acute on chronic heart failure with preserved ejection fraction (HFpEF) (Acute) Acute pulmonary edema with congestive heart failure (Acute) Acute non-ST elevation myocardial infarction (NSTEMI) (Acute) Heart failure (Acute) Lumbar spondylosis (Acute) Mechanical low back pain (Acute) Exposure to COVID-19 virus (Acute ~04/12/23) Acute on chronic diastolic CHF (congestive heart failure), NYHA class 2 (Chronic) Cervical disc herniation (Chronic) Diabetes mellitus (Chronic) S/P TAVR (transcatheter aortic valve replacement) (Chronic) Anemia (Acute) Medical History Palpable mass of lower back Lumbar spinal stenosis Low back pain Spinal stenosis Paroxysmal atrial fibrillation Atherosclerotic cardiovascular disease Aortic stenosis Acute cholecystitis BP (high blood pressure) Degenerative joint disease of right knee Closed fracture of left distal fibula (03/31/19) Surgical History H/O esophagogastroduodenoscopy (~2019) S/P colonoscopy (~2019) History of hysterectomy History of cataract surgery Social History Smoking/Tobacco Use Status: Never Smoking risk assessment performed?: Yes Alcohol Intake: never Drug use: Never Substance use type: does not use Housing: house What type of physical activity do you participate in: additional Details: PT to start Do you feel safe at home: Yes Do you feel safe in your relationship?: Yes
[2025-08-11 18:51] LABS: Abs Immature Grans 0.04 10^3/uL (0.0-0.06); HCT 34.7 % (36.0-46.0); HGB 10.5 g/dL (11.2-15.7); Immature Grans % 0.5 %; MCH 23.1 pg (27.0-33.0); MCHC 30.3 % (32.0-36.0); MCV 76 fL (80-95); MPV 10.1 fL (8.0-11.0); Platelet Count 252 10^3/uL (130-400); RBC 4.55 10^6/uL (3.93-5.22); RDW 19.7 % (11.7-14.6); RDW-SD 53.8 fL; WBC 7.64 10^3/uL (4.4-10.8)
[2025-08-11 19:27] LABS: Lipase 26 U/L (<53); Magnesium 1.8 mg/dL (1.6-2.6)
[2025-08-11 19:28] LABS: Troponin I 17 ng/L (<35)
[2025-08-11 19:29] LABS: ALT 61 U/L (10-49); AST 46 U/L (<34); Albumin 4.3 g/dL (3.2-5.0); Alkaline Phosphatase 120 U/L (46-116); Anion Gap 9.4 mmol/L (3-11); BUN 16 mg/dL (9-23); Bilirubin, Total 1.1 mg/dL (0.2-1.2); CO2 25.6 mmol/L (20.0-31.0); Calcium 9.0 mg/dL (8.3-10.6); Chloride 107 mmol/L (98-107); Glucose 152 mg/dL (74-106); Potassium 3.8 mmol/L (3.5-5.1); Sodium 142 mmol/L (136-145); Total Protein 7.1 g/dL (5.7-8.2)
[2025-08-11 19:31] LABS: TSH (W/Ref FT4) 1.72 uIU/mL (0.55-4.78)
[2025-08-11 19:37] LABS: COVID-19 PCR Negative (Negative); RSV PCR Negative (Negative)
[2025-08-11] MEDS: Normal Saline Flush 10 ML SYR IVP (19:41)
[2025-08-11] MEDS: Omnipaque 350 MG/ML 100 ML BTL IJ (19:41)
[2025-08-11] MEDS: Normal Saline - Diluent 50 ML VIAL IJ (19:41)
[2025-08-11 19:52] LABS: Glucose 100 mg/dL (Negative)
[2025-08-11 20:00] LABS: C & S Indicated? No; WBC 0-2 HPF (0-5)
--- NOTE | 2025-08-11 20:23 | DI.VRAD_ITS ---
PROCEDURE INFORMATION: Exam: CTA Head Without And With Contrast, Arteriography Exam date and time: 08/11/2025 7:49 PM Age: 84 years old Clinical indication: Stroke-like symptoms; Headache and other: Vertigo; Additional info: Sudden vertigo, headache TECHNIQUE: Imaging protocol: Computed tomographic angiography of the head without and with contrast. Exam focused on the arteries. 3D rendering (Not supervised by radiologist): MIP and/or 3D reconstructed images were created by the technologist. Radiation optimization: All CT scans at this facility use at least one of these dose optimization techniques: automated exposure control; mA and/or kV adjustment per patient size (includes targeted exams where dose is matched to clinical indication); or iterative reconstruction. Contrast material: OMNIPAQUE 350; Contrast volume: 70 ml; Contrast route: INTRAVENOUS (IV); Other technique: STROKE PROTOCOL was implemented. COMPARISON: CT BRAIN NECK CTA 07/10/2025 4:54 PM FINDINGS: ANTERIOR CIRCULATION: Right internal carotid artery: Intracranial segment is patent with no significant stenosis or occlusion. No aneurysm. Right middle cerebral artery: No occlusion or significant stenosis. No aneurysm. Right anterior cerebral artery: No occlusion or significant stenosis. No aneurysm. Left internal carotid artery: Intracranial segment is patent with no significant stenosis. No aneurysm. Left middle cerebral artery: No occlusion or significant stenosis. No aneurysm. Left anterior cerebral artery: No occlusion or significant stenosis. No aneurysm. POSTERIOR CIRCULATION: Right vertebral artery: No occlusion or significant stenosis. No aneurysm. Left vertebral artery: No occlusion or significant stenosis. No aneurysm. Basilar artery: No occlusion or significant stenosis. No aneurysm. Right posterior cerebral artery: No occlusion or significant stenosis. No aneurysm. Left posterior cerebral artery: No occlusion or significant stenosis. No aneurysm. HEAD: Brain: Mild nonspecific hypodensities of the periventricular and deep subcortical white matter, most likely secondary to chronic microangiopathic ischemic change. No intracranial hemorrhage or extra-axial fluid collection. No evidence of mass effect or midline shift. Mccarthy-white matter differentiation is normal. Cerebral ventricles: Mild prominence of the ventricles and sulci, most likely attributed to parenchymal volume loss. Bones: Unremarkable. No acute fracture. Paranasal sinuses: Visualized sinuses are normal. No fluid levels. Mastoid air cells: Visualized mastoids are normal. No mastoid effusion. Soft tissues: Unremarkable. IMPRESSION: 1. No intracranial arterial occlusion or significant stenosis. 2. No acute findings on non-contrast Head CT images. ASPECTS score 10. 3. Chronic findings, as above. PROCEDURE INFORMATION: Exam: CTA Neck With Contrast Exam date and time: 08/11/2025 7:49 PM Age: 84 years old Clinical indication: Stroke-like symptoms; Headache and other: Vertigo; Additional info: Sudden vertigo, headache TECHNIQUE: Imaging protocol: Computed tomographic angiography of the neck with contrast. Exam focused on the cervical segments of the vasculature. 3D rendering (Not supervised by radiologist): MIP and/or 3D reconstructed images were created by the technologist. Radiation optimization: All CT scans at this facility use at least one of these dose optimization techniques: automated exposure control; mA and/or kV adjustment per patient size (includes targeted exams where dose is matched to clinical indication); or iterative reconstruction. Contrast material: OMNIPAQUE 350; Contrast volume: 70 ml; Contrast route: INTRAVENOUS (IV); COMPARISON: CT BRAIN NECK CTA 07/10/2025 4:54 PM FINDINGS: Right common carotid artery: No significant stenosis. No dissection or occlusion. Right internal carotid artery: Atherosclerotic plaques within the proximal extracranial right internal carotid artery cause approximately 50 % stenosis by NASCET criteria. Remaining portions of the extracranial right ICA are patent. Right external carotid artery: No occlusion or significant stenosis. Left common carotid artery: No significant stenosis. No dissection or occlusion. Left internal carotid artery: Atherosclerotic plaques within the proximal extracranial left internal carotid artery cause approximately 50 % stenosis by NASCET criteria. Remaining portions of the extracranial left ICA are patent. Left external carotid artery: Moderate stenosis of the origin of the left external carotid artery. Right vertebral artery: No significant stenosis. No dissection or occlusion. Left vertebral artery: No significant stenosis. No dissection or occlusion. Thyroid: 3.1 cm heterogeneous mass within the left lobe of the thyroid gland. Soft tissues: Unremarkable. Bones/joints: No acute fracture. IMPRESSION: 1. No occlusion or severe stenosis in the arteries of the neck. 2. 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 3. 3.1 cm heterogeneous mass within the left lobe of the thyroid gland. Recommend further evaluation with nonemergent thyroid ultrasound. REFERENCES: NASCET CRITERIA. The degree of stenosis in the cervical segment of the internal carotid artery is based on NASCET criteria. Normal is no stenosis. Mild is less than 50% stenosis. Moderate is 50-69% stenosis. Severe is 70% to 99% stenosis. Total occlusion is no detectable patent lumen. Dictated and Authenticated by: Dez Wagner MD. Orderin Sarah Mittal MD
--- NOTE | 2025-08-11 20:24 | DI.VRAD_ITS ---
PROCEDURE INFORMATION: Exam: XR Chest Exam date and time: 08/11/2025 8:09 PM Age: 84 years old Clinical indication: Dizziness; Additional info: Sudden vertigo, headache TECHNIQUE: Imaging protocol: Radiologic exam of the chest. Views: 2 views. COMPARISON: CR XR CHEST 2V PA LATERAL 07/10/2025 6:53 PM FINDINGS: Lungs: No focal areas of consolidation. Pleural spaces: No pleural effusion. No pneumothorax. Heart/Mediastinum: Cardiac and mediastinal silhouettes are unremarkable. Bones/joints: No acute osseus lesion or fracture. IMPRESSION: No acute cardiopulmonary findings. Dictated and Authenticated by: Dez Wagner MD. Orderin Sarah Mittal MD
[2025-08-11] MEDS: Meclizine 25 MG TAB PO (20:47)
[2025-08-11] MEDS: Metoprolol CR 50 MG TABCR 200 MG PO (21:02)
[2025-08-11] MEDS: Losartan 50 MG TAB 100 MG PO (21:02)
[2025-08-11] MEDS: Labetalol 100 MG/20 ML VIAL 20 MG IVP (22:39)
--- NOTE | 2025-08-11 23:54 | W.EDPROG ---
Date of service: 08/11/25 Time of Service: 23:54 Medical Decision Making Case was signed out to me by my colleague Kyrie Smith. Please refer to his HPI, physical exam, assessment and plan. At time of signout we are awaiting transfer request from outside hospitals for lateral transfer for inpatient MRI and echo as recommended by teleneurology. Patient was given IV labetalol prior to signout, and blood pressure has transitioned from the 230s systolic, to the 170s to 180s systolic. Patient is stable. Stool studies/cultures have been ordered. She has not yet had a bowel movement since I been here though unfortunately (although she did have significant diarrhea prior to my arrival tonight.) We did contact [facility] and I spoke with the provider Javan Garcias. She accepts the patient for transfer under Dr. Cohen. I have extensively reviewed the treatment plan with the patient. I have addressed all patient concerns at this time. I have also discussed the plan with the admitting physician and they agree with the current assessment and plan and have agreed to assume responsibility for the patient. All parties demonstrate verbal understanding and agreement with our assessment and plan at this time. The documentation in this chart was dictated using [employer] dictation software. Please excuse any dictation errors. At time of transfer the patient was reassessed and continued to demonstrate No signs of acute respiratory distress requiring intubation, hemodynamic instability requiring pressor support, or rapidly declining mental status. Quality:SDOH Health Related Social Needs: Health related social needs details not applicable. Critical Care Time Critical Care Time Critical Care Time: Yes Total Critical Care Time: 20 Attestation: Upon my evaluation, this patient had a high probability of imminent or life-threatening deterioration, which required my direct attention, intervention, and personal management. I have personally provided 20 minutes of critical care time exclusive of time spent on separately billable procedures. Time includes review of laboratory data, radiology results, discussion with consultants, and monitoring for potential decompensation. Interventions were performed as documented. Discharge Plan Disposition Patient Disposition: Transfer-Acute Inpatient Care Specific Acute Inpt Facility: Other Condition: Stable Discharge Details Clinical Impression: Hypertensive emergency, Dizziness, Diarrhea Primary Care Provider: Regis Muller ED Provider: Kyrie Tam Home Meds and New Rx's Prescriptions: Continued fluticasone propionate [Allergy Relief (fluticasone)] 50 mcg/actuation spray,suspension 1 spray intranasal BID Rx Instructions: administer into each nostril hydrocodone-acetaminophen 325 mg PO DAILY PRN Patient Comments: prn metronidazole 0.75 % cream 1 applic topical DAILY ferrous gluconate 324 mg (37.5 mg iron) tablet 324 mg PO DAILY amiodarone [Pacerone] 200 mg tablet 200 mg PO BID insulin glargine [Lantus U-100 Insulin] 100 UNITS/ML solution 25 unit Sub-Q BID Humalog U-100 Insulin 100 UNIT/ML cartridge 15 unit Sub-Q TID ascorbic acid (vitamin C) [Vitamin C] 1,000 mg Tablet 1,000 mg PO DAILY Multi For Her 18 mg iron-600 mcg-40 mcg Capsule 1 tab-cap PO DAILY pantoprazole [Protonix] 40 mg Tablet,Delayed Release (Dr/Ec) 40 mg PO BID rosuvastatin 20 mg Tablet 20 mg PO HS clopidogrel [Plavix] 75 mg tablet 75 mg PO DAILY metoprolol succinate 100 mg tablet extended release 24 hr 200 mg PO QHS amitriptyline 10 mg tablet 10 mg PO DIRECTED Patient Comments: TAKE ONE-HALF TO TWO TABLETS BY MOUTH AT BEDTIME Rx Instructions: 1/2 -2 tablets every night glipizide 5 mg tablet 5 mg PO DAILY Patient Comments: TAKE ONE TABLET BY MOUTH EVERY DAY sucralfate 1 gram Tablet 1 g PO AC & HS Qty: 120 0RF gabapentin 100 mg capsule 100 mg PO TID Patient Comments: TAKE ONE CAPSULE BY MOUTH THREE TIMES A DAY famotidine 40 mg tablet 40 mg PO DAILY Qty: 90 0RF furosemide 40 mg Tablet 20 mg PO DAILY Qty: 30 0RF spironolactone 25 mg tablet 12.5 mg PO DAILY Qty: 30 0RF vitamin B complex [B Complex-Vitamin B12] 1 EACH tablet 1 ea PO DAILY cholecalciferol (vitamin D3) [Vitamin D3] 1,000 UNIT capsule 1,000 unit PO DAILY losartan 100 MG tablet 100 mg PO HS (DME) OneTouch Ultra Test Strip MISCELLANEOUS Patient Comments: TEST THREE TIMES A DAY cyclobenzaprine 5 mg tablet 5 mg PO TID PRNQty: 10 0RF ondansetron 4 mg tablet,disintegrating 4 mg PO Q6H PRN (Reason: nausea and vomiting) Qty: 30 0RF Patient Comments: prn Discharge Instructions Stand Alone Forms: Portal Information Referrals: Dege,Regis Edward, MD [Primary Care Provider, Medicine]
[2025-08-12] VITALS: PULSE 57; PULSE 58; RESP 20; O2SAT 92
[2025-08-12 00:01] VITALS: BP 199/49; PULSE 57; PULSE 58; RESP 21
[2025-08-12 00:10] VITALS: PULSE 61; PULSE 63; RESP 19; O2SAT 96
[2025-08-12 00:13] VITALS: PULSE 60; RESP 14; O2SAT 98
[2025-08-12 00:14] VITALS: PULSE 60; RESP 17; O2SAT 98
== END 2025-08-12 00:32 | disposition short-term general hospital (02) ==
PROVIDERS: Physician Assistant; Emergency Provider Student in an Organized Health Care Education/Training Program; PCP Family Medicine
DX: I16.0 Hypertensive urgency (principal); E11.9 Type 2 diabetes mellitus without complications; I11.0 Hypertensive heart disease with heart failure; I50.32 Chronic diastolic (congestive) heart failure; I45.2 Bifascicular block; I48.0 Paroxysmal atrial fibrillation; I25.2 Old myocardial infarction; Z79.4 Long term (current) use of insulin; Z79.02 Long term (current) use of antithrombotics/antiplatelets; Z95.2 Presence of prosthetic heart valve
CPT/HCPCS: 00123; 36415; 70496; 70498; 80053; 83690; 87637; 93005; 96374; 99285; 71046; 81003; 81015; 83605; 83735; 84443; 84484; 85025; 93010; J1920; J3490